=== PATIENT | male | born 1950 | race Caucasian/White ===

== ENCOUNTER 2023-01-06 08:30 | Outpatient (OUT) | payer MEDICARE, SELFPAY ==
[2023-01-06 09:12] LABS: Hematocrit 43.1 % (42.0-54.0); Hemoglobin 14.5 g/dL (14.0-18.0); Mean Corpuscular HGB Conc 33.6 g/dL (29.9-35.2); Mean Corpuscular Hemoglobin 31.3 pg (25.9-34.0); Mean Corpuscular Volume 92.9 fL (80.0-94.0); Mean Platelet Volume 12.6 fL (9.5-13.5); Platelet Count 219 10^3/uL (150-450); Red Blood Count 4.64 10^6/uL (4.70-6.10); Red Cell Distribution Width 12.2 % (11.0-15.0)
[2023-01-06 09:14] LABS: Albumin Level 3.3 g/dL (3.4-5.0); Anion Gap 10.1; BUN Creatinine Ratio 16.9; Calcium 8.4 mg/dL (8.5-10.1); Carbon Dioxide 30.7 mmol/L (21.0-32.0); Chloride 103 mmol/L (98-107); Estimated GFR (African America 52 (>=60); Estimated GFR (Non-African Ame 43 (>=60); Glucose 183 mg/dL (74-106); Magnesium 1.6 mg/dL (1.8-2.4); Potassium 4.8 mmol/L (3.5-5.1); Sodium 139 mmol/L (136-145); Uric Acid 5.9 mg/dL (3.5-7.2)
[2023-01-07 12:09] LABS: PTH, Intact 60 pg/mL (15-65)
== END 2023-01-06 08:31 | disposition home or self-care (01) ==
LOC: LAB 08:36
PROVIDERS: PCP Family Medicine; Visit Provider Internal Medicine
DX: E11.22 Type 2 diabetes mellitus with diabetic chronic kidney disease (principal); N18.30 Chronic kidney disease, stage 3 unspecified; I12.9 Hypertensive chronic kidney disease with stage 1 through stage 4 chronic kidney disease, or unspecified chronic kidney disease; N25.81 Secondary hyperparathyroidism of renal origin; E83.42 Hypomagnesemia
CPT/HCPCS: 36415; 80069; 81001; 82306; 82570; 82728; 83735; 83970; 84156; 84550; 85027

== ENCOUNTER 2023-01-07 | Outpatient (REF) | payer MEDICARE, SELFPAY ==
[2023-01-08 11:37] LABS: Bilirubin Urine NEGATIVE (NEGATIVE); Blood Urine NEGATIVE (NEGATIVE); Clarity Urine CLEAR (CLEAR); Color Urine YELLOW (YELLOW); Glucose Urine UA NEGATIVE (NEGATIVE); Ketones Urine NEGATIVE (NEGATIVE); Leukocyte Esterase Urine NEGATIVE (NEGATIVE); Nitrite Urine NEGATIVE (NEGATIVE); Protein Urine NEGATIVE (NEG/TRACE); Specific Gravity Urine 1.025 (1.005-1.025); Urobilinogen Urine 0.2 EU/dL (0.2-1.0); pH Urine 5.5 (5.0-9.0)
[2023-01-08 11:42] LABS: Total Protein Urine Random 12.7 mg/dL (<=11.9)
[2023-01-08 11:46] LABS: Bacteria Urine NONE SEEN #/HPF (NONE SEEN); Mucus Urine NONE SEEN (NONE SEEN); RBC Urine NONE SEEN #/HPF (0-2); WBC Urine NONE SEEN #/HPF (NONE SEEN)
[2023-01-08 11:48] LABS: Squamous Epithelial Cell Urine NONE SEEN #/LPF (NONE/RARE)
[2023-01-08 11:49] LABS: Calcium Oxalate Crystals Urine FEW; Cast Seen? NONE SEEN #/LPF (NONE SEEN); Crystals Seen? Seen #/HPF (None Seen)
== END 2023-01-07 00:01 | disposition home or self-care (01) ==
LOC: LAB
PROVIDERS: PCP Family Medicine; Visit Provider Internal Medicine
DX: I12.9 Hypertensive chronic kidney disease with stage 1 through stage 4 chronic kidney disease, or unspecified chronic kidney disease (principal); N18.30 Chronic kidney disease, stage 3 unspecified; E11.22 Type 2 diabetes mellitus with diabetic chronic kidney disease; N25.81 Secondary hyperparathyroidism of renal origin; E83.42 Hypomagnesemia
CPT/HCPCS: 81001; 82570; 84156

== ENCOUNTER 2023-04-17 08:46 | Outpatient (OUT) | payer OTHER, SELFPAY ==
--- NOTE | 2023-04-17 08:52 | US_ITS ---
The [address] [address] Patient Name: DON ELKINS MRN: [id number] date: 1950 Sex: M Assigned Patient Location: [place] Current Patient Location: [place] Accession/Order Number: [id number] Exam Date: 04/17/2023 09:00 Report Date: 04/17/2023 09:33 At the request of: CARMELA CAMPBELL Procedure: US right upper quadrant EXAM: US right upper quadrant HISTORY: . Abnormal Results Of Function Studies R94.1 . COMPARISON: None. TECHNIQUE: Grayscale and color imaging was performed FINDINGS: The pancreas was obscured due to overlying bowel gas. Scanning of the liver demonstrates a liver to be normal in size. No masses are noted. Color-flow is noted in the portal and hepatic veins. The gallbladder is absent. Common bile duct measures 3 mm. Right kidney measures 9.3 x 5.1 x 5.2 cm. No solid renal cortical masses or hydronephrosis is noted. No fluid is noted in the right upper quadrant. US/US right upper quadrant IMPRESSION: 1. Absent gallbladder. 2. The pancreas was obscured due to overlying bowel gas. 3. The remainder the right upper quadrant is unremarkable. Electronically authenticated by: WILL REIS Date: 04/17/2023 09:33
== END 2023-04-17 08:47 | disposition home or self-care (01) ==
LOC: US 08:46
PROVIDERS: PCP Family Medicine
DX: R94.8 Abnormal results of function studies of other organs and systems (principal)
CPT/HCPCS: 76705

== ENCOUNTER 2023-07-04 13:25 | Outpatient (OUT) | payer OTHER, SELFPAY ==
--- NOTE | 2023-07-04 13:28 | US_ITS ---
[address] [address] Patient Name: DON ELKINS MRN: [id number] date: 1950 Sex: M Assigned Patient Location: [place] Current Patient Location: [place] Accession/Order Number: [id number] Exam Date: 07/04/2023 13:30 Report Date: 07/04/2023 15:47 At the request of: OSCAR MALCOLM Procedure: US carotid duplex BI EXAMINATION: US carotid duplex BI HISTORY: Carotid Stenosis I65.23 COMPARISON: No relevant comparison available. TECHNIQUE: Duplex Doppler ultrasound analysis of carotid and vertebral arteries. . Bilateral carotid arterial duplex examination was performed using B-mode, color flow and spectral analysis. Carotid stenosis is reported according to validated velocity parameters, similar to NASCET criteria. FINDINGS: RIGHT CAROTID ARTERY: Moderate atherosclerotic narrowing of carotid bulb; 57% area reduction. RIGHT VERTEBRAL: Antegrade flow. Subclavian: PSV: 91.2 cm/s EDV: 6.7 cm/s CCA: Prox: PSV: 80.1 cm/s EDV: 8.7 cm/s Mid: PSV: 72.4 cm/s EDV: 12.0 cm/s Distal: PSV: 59.2 cm/s EDV: 10.9 cm/s BULB: PSV: 69.1 cm/s EDV: 14.2 cm/s ICA: Prox: PSV: 84.5 cm/s EDV: 18.6 cm/s Mid: PSV: 42.7 cm/s EDV: 14.2 cm/s Distal: PSV: 69.1 cm/s EDV: 20.8 cm/s ECA: PSV: 141.7 cm/s EDV: 0.0 cm/s VERTEBRAL: PSV: 43.5 cm/s EDV: 12.1 cm/s ICA/CCA ratio: PSV: 1.4 EDV: 1.7 LEFT CAROTID ARTERY: Mild atherosclerotic disease without significant stenosis. LEFT VERTEBRAL: Antegrade flow. Subclavian: PSV: 137.8 cm/s EDV: 4.1 cm/s CCA: Prox: PSV: 104.8 cm/s EDV: 16.0 cm/s Mid: PSV: 73.5 cm/s EDV: 12.0 cm/s Distal: PSV: 59.2 cm/s EDV: 8.7 cm/s BULB: PSV: 73.5 cm/s EDV: 13.1 cm/s ICA: Prox: PSV: 75.7 cm/s EDV: 24.1 cm/s Mid: PSV: 68.0 cm/s EDV: 20.8 cm/s Distal: PSV: 80.1 cm/s EDV: 29.6 cm/s ECA: PSV: 103.4 cm/s EDV: 6.3 cm/s VERTEBRAL: PSV: 49.0 cm/s EDV: 12.8 cm/s ICA/CCA ratio: PSV: 1.4 EDV: 3.4 US/US carotid duplex BI IMPRESSION: 1. 0-49% flow stenosis within the carotid arteries bilaterally. 2. Moderate atherosclerotic narrowing of right carotid bulb. Minimal atherosclerotic plaque on left. Spectral Doppler US Thresholds Stenosis (%) PSV (cm/sec) VICA/VCCA 0-49 <150 <2.5 50-69 150-225 2.5-4.0 >70 >225 >4.0 Electronically authenticated by: ELIO THOMAS Date: 07/04/2023 15:47
== END 2023-07-04 13:26 | disposition home or self-care (01) ==
LOC: US 13:25
PROVIDERS: PCP Family Medicine; Visit Provider Psychiatry & Neurology Neurology
DX: I65.23 Occlusion and stenosis of bilateral carotid arteries (principal); I63.81 Other cerebral infarction due to occlusion or stenosis of small artery; I63.50 Cerebral infarction due to unspecified occlusion or stenosis of unspecified cerebral artery
CPT/HCPCS: 93880

== ENCOUNTER 2023-08-05 10:39 | Outpatient (OUT) | payer OTHER, SELFPAY ==
[2023-08-05 11:17] LABS: Bilirubin Urine NEGATIVE (NEGATIVE); Blood Urine NEGATIVE (NEGATIVE); Clarity Urine CLEAR (CLEAR); Color Urine YELLOW (YELLOW); Creatinine Urine Random 178.56 mg/dL (20.00-300.00); Glucose Urine UA NEGATIVE (NEGATIVE); Ketones Urine NEGATIVE (NEGATIVE); Leukocyte Esterase Urine NEGATIVE (NEGATIVE); Nitrite Urine NEGATIVE (NEGATIVE); Protein Creatinine Ratio Urine 0.11; Protein Urine NEGATIVE (NEG/TRACE); Specific Gravity Urine 1.025 (1.005-1.025); Urobilinogen Urine 0.2 EU/dL (0.2-1.0); pH Urine 5.5 (5.0-9.0)
[2023-08-05 11:22] LABS: Hematocrit 45.3 % (42.0-54.0); Hemoglobin 15.1 g/dL (14.0-18.0); Mean Corpuscular HGB Conc 33.3 g/dL (29.9-35.2); Mean Corpuscular Hemoglobin 31.7 pg (25.9-34.0); Mean Corpuscular Volume 95.2 fL (80.0-94.0); Mean Platelet Volume 12.7 fL (9.5-13.5); Platelet Count 234 10^3/uL (150-450); Red Blood Count 4.76 10^6/uL (4.70-6.10); Red Cell Distribution Width 12.1 % (11.0-15.0); White Blood Count 11.2 10^3/uL (4.0-11.0)
[2023-08-05 11:24] LABS: Albumin Level 3.3 g/dL (3.4-5.0); Anion Gap 12.4; BUN Creatinine Ratio 14.6; Calcium 8.5 mg/dL (8.5-10.1); Carbon Dioxide 26.4 mmol/L (21.0-32.0); Chloride 98 mmol/L (98-107); Estimated GFR (African America 53 (>=60); Estimated GFR (Non-African Ame 44 (>=60); Glucose 300 mg/dL (74-106); Magnesium 1.9 mg/dL (1.8-2.4); Phosphorus 3.9 mg/dL (2.6-4.7); Potassium 3.8 mmol/L (3.5-5.1); Sodium 133 mmol/L (136-145); Uric Acid 5.4 mg/dL (3.5-7.2)
[2023-08-05 12:04] LABS: Bacteria Urine NONE SEEN #/HPF (NONE SEEN); Mucus Urine TRACE (NONE SEEN); RBC Urine NONE SEEN #/HPF (0-2); Squamous Epithelial Cell Urine FEW #/LPF (NONE/RARE); WBC Urine NONE SEEN #/HPF (NONE SEEN)
[2023-08-06 12:09] LABS: PTH, Intact 34 pg/mL (15-65)
== END 2023-08-05 10:40 | disposition home or self-care (01) ==
LOC: LAB 10:40
PROVIDERS: PCP Family Medicine; Visit Provider Internal Medicine
DX: E11.59 Type 2 diabetes mellitus with other circulatory complications (principal); E03.9 Hypothyroidism, unspecified; E27.1 Primary adrenocortical insufficiency; N18.30 Chronic kidney disease, stage 3 unspecified; E11.22 Type 2 diabetes mellitus with diabetic chronic kidney disease; I12.9 Hypertensive chronic kidney disease with stage 1 through stage 4 chronic kidney disease, or unspecified chronic kidney disease; N25.81 Secondary hyperparathyroidism of renal origin; E83.42 Hypomagnesemia
CPT/HCPCS: 36415; 80061; 80069; 81001; 82043; 82306; 82570; 83735; 83970; 84156; 84439; 84443; 84481; 84550; 84681; 85027

== ENCOUNTER 2023-08-05 10:43 | Outpatient (OUT) | payer OTHER, SELFPAY ==
[2023-08-05 11:20] LABS: Creatinine Urine Random 176.24 mg/dL (20.00-300.00); Microalbum Creatinine Ratio Ur 20.9 mg/g (0.0-29.9); Microalbumin Urine Random 3.7 mg/dL (<=30.0)
[2023-08-05 11:59] LABS: Chol HDL Ratio 2.3; Cholesterol 110 mg/dL (<=200); Free T3 1.71 pg/mL (2.18-3.98); Free T4 0.95 ng/dL (0.76-1.46); HDL Cholesterol 47 mg/dL (40-60); Thyroid Stimulating Hormone 1.788 uIU/mL (0.358-3.740); Triglycerides 154 mg/dL (<=150); VLDL CHOLESTEROL 30.8 mg/dL
[2023-08-06 12:09] LABS: C-Peptide, Serum 19.7 ng/mL (1.1-4.4)
== END 2023-08-05 10:44 | disposition home or self-care (01) ==
LOC: LAB 10:43
PROVIDERS: PCP Family Medicine; Visit Provider Internal Medicine
DX: E11.59 Type 2 diabetes mellitus with other circulatory complications (principal); E03.9 Hypothyroidism, unspecified; E27.1 Primary adrenocortical insufficiency
CPT/HCPCS: 36415; 80061; 82043; 82570; 84439; 84443; 84481; 84681

== ENCOUNTER 2024-01-22 10:43 | Outpatient (OUT) | payer OTHER, SELFPAY ==
[2024-01-22 11:04] LABS: Mean Corpuscular HGB Conc 34.1 g/dL (29.9-35.2); Mean Corpuscular Hemoglobin 31.5 pg (25.9-34.0); Mean Corpuscular Volume 92.4 fL (80.0-94.0); Mean Platelet Volume 12.7 fL (9.5-13.5); Platelet Count 230 10^3/uL (150-450); Red Blood Count 4.76 10^6/uL (4.70-6.10); White Blood Count 9.7 10^3/uL (4.0-11.0)
[2024-01-22 11:05] LABS: Bilirubin Urine NEGATIVE (NEGATIVE); Blood Urine NEGATIVE (NEGATIVE); Clarity Urine CLEAR (CLEAR); Color Urine LT. YELLOW (YELLOW); Glucose Urine UA >=1000 mg/dL (NEGATIVE); Ketones Urine NEGATIVE (NEGATIVE); Leukocyte Esterase Urine NEGATIVE (NEGATIVE); Nitrite Urine NEGATIVE (NEGATIVE); Protein Urine NEGATIVE (NEG/TRACE); Specific Gravity Urine 1.015 (1.005-1.025); Urobilinogen Urine 0.2 EU/dL (0.2-1.0); pH Urine 5.5 (5.0-9.0)
[2024-01-22 11:15] LABS: Bacteria Urine NONE SEEN #/HPF (NONE SEEN); Mucus Urine TRACE (NONE SEEN); RBC Urine NONE SEEN #/HPF (0-2); Squamous Epithelial Cell Urine FEW #/LPF (NONE/RARE); WBC Urine NONE SEEN #/HPF (NONE SEEN)
[2024-01-22 11:18] LABS: Creatinine Urine Random 81.08 mg/dL (20.00-300.00); Protein Creatinine Ratio Urine 0.14; Total Protein Urine Random 11.7 mg/dL (<=11.9)
[2024-01-22 12:20] LABS: Albumin Level 3.6 g/dL (3.4-5.0); Anion Gap 14.2; BUN Creatinine Ratio 14.7; Calcium 8.9 mg/dL (8.5-10.1); Carbon Dioxide 28.7 mmol/L (21.0-32.0); Chloride 99 mmol/L (98-107); Estimated GFR (African America 35 (>=60); Estimated GFR (Non-African Ame 29 (>=60); Glucose 303 mg/dL (74-106); Magnesium 1.9 mg/dL (1.8-2.4); Phosphorus 3.8 mg/dL (2.6-4.7); Potassium 4.9 mmol/L (3.5-5.1); Sodium 137 mmol/L (136-145); Uric Acid 7.7 mg/dL (3.5-7.2)
[2024-01-23 12:09] LABS: PTH, Intact 61 pg/mL (15-65)
== END 2024-01-22 10:44 | disposition home or self-care (01) ==
LOC: LAB 10:45
PROVIDERS: PCP Family Medicine; Visit Provider Internal Medicine
DX: E83.42 Hypomagnesemia (principal); N25.81 Secondary hyperparathyroidism of renal origin; I12.9 Hypertensive chronic kidney disease with stage 1 through stage 4 chronic kidney disease, or unspecified chronic kidney disease; E11.22 Type 2 diabetes mellitus with diabetic chronic kidney disease; N18.30 Chronic kidney disease, stage 3 unspecified; I26.99 Other pulmonary embolism without acute cor pulmonale
CPT/HCPCS: 36415; 80069; 81001; 82306; 82570; 83735; 83970; 84156; 84550; 85027

== ENCOUNTER 2024-03-17 09:34 | Outpatient (OUT) | payer OTHER, SELFPAY ==
--- OUTSIDE RECORDS SUMMARY | 2024-03-17 09:58 | XMS_ITS | CCD ---
Author Organization [facility] Care Team Providers Care Grocery Worker Name Role Phone Kenneth Cheng Unavailable Unavailable Kirnus, Levi Unavailable Unavailable UNKNOWN, PCP Unavailable Unavailable SY, JC VASUDEO Unavailable Unavailable Sy, Jc Vasudeo Attending Unavailable Sal Sabillon Primary Care Provider [phone] SALLIE, REID H. Referring Unavailable SAL SABILLON Primary Care Unavailable SALLIE, REID H. Admitting Unavailable SALLIE, REID H. Attending Unavailable SAL SABILLON Primary Care Unavailable SALLIE, REID H. Attending Unavailable SALLIE, REID H. Referring Unavailable SAL SABILLON Primary Care Unavailable SAL SABILLON Primary Care Unavailable CHATHA, GERARDO Admitting Unavailable CHATHA, GERARDO Attending Unavailable SALLIE, REID H. Consulting Unavailable ANDREW WRIGHT Consulting Unavailable SCAARONIN ELLIE Admitting Unavailable SCAARONIN ELLIE Attending Unavailable SAL SABILLON Primary Care Unavailable CHATHA, GERARDO Consulting Unavailable MARJ DEMARCO Admitting Unavailable MARJ DEMARCO Attending Unavailable SAL SABILLON Primary Care Unavailable SAL SABILLON Referring Unavailable Geovanni, Frederick Unavailable GEOVANNI, FREDERICK Admitting Unavailable GEOVANNI, FREDERICK Attending Unavailable GEOVANNI, FREDERICK Consulting Unavailable DR SAL SABILLON Primary Care Unavailable DR SAL SABILLON Primary Care Unavailable BECCA JUNE Attending Unavailable BECCA JUNE Admitting Unavailable DR SAL SABILLON Primary Care Unavailable BECCA JUNE Admitting Unavailable BECCA JUNE Attending Unavailable BECCA JUNE Consulting Unavailable DR SAL SABILLON Primary Care Unavailable JENNIFER, DR CHANG Attending Unavailable JENNIFER, DR CHANG Consulting Unavailable JENNIFER, DR CHANG Admitting Unavailable DR SAL SABILLON Primary Care Unavailable GEOVANNI, FREDERICK Admitting Unavailable GEOVANNI, FREDERICK Attending Unavailable FREDERICK DALTON Consulting Unavailable Sal Sabillon Unavailable Sal Sabillon MD Primary Care Provider [phone] OSCAR ARVIZU Attending Unavailable OLGA VOGEL Attending Unavailable OSCAR ARVIZU Attending Unavailable BECCA JUNE Attending Unavailable MARJ DEMARCO Attending Unavailable Medications Current Medications Medication Drug Class(es) Dates Sig (Normalized) Sig (Original) 0.25 MG, 0.5 MG Dose 3 ML semaglutide 0.68 MG/ML Pen Injector [Ozempic] (2 sources) Ozempic (0.25 or 0.5 MG/DOSE) 2 MG/3ML as directed Subcutaneous Active acetaminophen 325 mg oral tablet (2 sources) Start: 04-08-2019 650 mg, Oral, EVERY 4 HOURS PRN, Pain Mild (1-3), Fever, For temp greater than 100.5 F (38 C), Starting 04/09/19 at 1749 Maximum dose of acetaminophen is 4000 mg from all sources in 24 hours. Acetaminophen / oxyCODONE (5 sources) Opioid Agonist Start: 04-09-2019 oxyCODONE-acetaminop hen (PERCOCET) 5-325 MG per tablet 1 tablet Start: 04-08-2019 oxyCODONE-acet aminophen (PERCOCET) 5-325 MG per tablet 1 tablet Start: 04-05-2019 End: 04-19-2019 take 1 tablet by mouth every six hours as needed for pain, then take 1 tablet by mouth as needed for pain oxyCODONE-acetaminophen (PERCOCET) 5-325 MG per tablet Indications: Post-op pain Take 1 tablet by mouth every 6 hours as needed for Pain for up to 14 days. Intended supply: 7 days. Take lowest dose possible to manage pain 40 tablet 0 04/05/2019 04/19/2019 Active amantadine hydrochloride 100 mg oral tablet (2 sources) Influenza A M2 Protein Inhibitor take 1 tablet by mouth every twenty-four hours Amantadine HCl 100 MG 1 tablet Orally Once a day Active aspirin 81 mg chewable tablet (15 sources) Platelet Aggregation Inhibitor, Nonsteroidal Anti-inflammatory Drug Start: 08-14-19 take 81 mg by mouth once daily Aspirin Active 81 MG PO Daily August 14, 2023 12:00am Start: 03-15-2018 End: 09-11-2020 take 81 mg by mouth once daily Aspirin Discontinued 81 MG PO Daily 0 March 16, 2018 12:00am September 11, 2020 6:25pm take 1 tablet by jules th once daily Aspirin 81 81 MG 1 tablet Orally Once a day Active atorvastatin 40 mg oral tablet (11 sources) HMG-CoA Reductase Inhibitor Start: 08-14-2023 take 40 mg by mouth once daily Atorvastatin Active 40 MG PO Daily August 14, 2023 12:00am Start: 03-16-2018 End: 08-14-2023 take 80 mg by mouth once daily at bedtime Atorvastatin Discontinued 80 MG PO Daily at bedtime 0 March 16, 2018 12:00am August 14, 2023 1:36pm take 1 tablet by jules th in the morning atorvastatin (Lipitor) 20 MG tablet Take 1 tablet by mouth in the morning. 0 Active take 1 tablet by jules th every twenty-four hours Atorvastatin Calcium 40 MG 1 tablet Orally Once a day Active calcium chloride 0.0014 meq/ml / potassium chloride 0.004 meq/ml / sodium chloride 0.103 meq/ml / sodium lactate 0.028 meq/ml injectable solution (2 sources) Start: 04-05-2019 lactated ringers infusion cholestyramine resin 4000 mg powder for oral suspension (3 sources) Bile Acid Sequestrant take 1 dose by mouth once daily cholestyramine (Questran) 4 g packet use 1 (ONE) PACKET BY MOUTH DAILY 0 Active citalopram 20 mg oral tablet (20 sources) Serotonin Reuptake Inhibitor Start: 03-15-2018 End: 08-14-2023 take 20 mg by mouth once daily Citalopram Active 20 MG PO Daily August 14, 2023 12:00am Coenzyme Q-10 100 MG (1 source) take 1 capsule by mouth once daily Coenzyme Q-10 100 MG 1 capsule with a meal Orally Once a day Active ubidecarenone 100 mg oral capsule (14 sources) Start: 08-14-2023 Coenzyme Q10 Active 100 MG PO Daily August 14, 2023 12:00am Start: 03-15-2018 End: 03-16-2018 Coenzyme Q10 (Co Q-10) 100 m g Capsule Discontinued 100 MG PO Daily March 15, 2018 12:00am March 16, 2018 1:09pm take 1 capsule by mo [facility] every twenty-four hours Coenzyme Q-10 100 MG 1 capsule with a meal Orally Once a day Active CPAP Machine MISC (4 sources) CPAP Machine MIS C by Does not apply route 0 Active 72 hr fentaNYL 0.025 mg/hr transdermal system (4 sources) Opioid Agonist Start: 04-11-2019 1 patch, Transdermal, Administer over 72 Hours, EVERY 72 HOURS, First dose (after last modification) on 04/11/19 at 1600 Start: 04-08-2019 apply 1 dose transde rmal route every hour fentaNYL (DURAGESIC) 25 MCG/HR 1 patch Start: 04-07-2019 End: 04-07-2019 fentaNYL (SUBLIMAZE) injecti on 50 mcg Start: 04-05-2019 fentaNYL (SUBL IMAZE) injection 50 mcg fludrocortisone acetate 0.1 mg oral tablet (18 sources) Start: 08-14-2023 take 0.1 mg by mouth four times weekly Fludrocortisone Active 0.1 MG PO 4 times per week August 14, 2023 12:00am Start: 04-08-2019 End: 04-13-2019 take 0.1 mg by mouth once daily 0.1 mg, Oral, DAILY, First dose (after last modification) on 04/10/19 at 0900 Start: 03-15-2018 End: 08-14-2023 take 0.1 mg by mouth every other day Fludrocortisone Discontinued 0.1 MG PO every other day March 15, 2018 12:00am August 14, 2023 1:37pm take 1 tablet by [facility] four times weekly Fludrocortisone Acetate 0.1 MG 1 tablet Orally four times a Week Active take 1 tablet by [facility] once daily fludrocortisone (FLORINEF) 0.1 MG tablet Take 0.1 mg by mouth daily 0 Active gabapentin 800 mg oral tablet (20 sources) Anti-epileptic Agent Start: 01-29-2024 take 800 mg by mouth three times daily Gabapentin Active 800 MG PO Three times daily January 29, 2024 12:00am Start: 08-14-2023 End: 01-29-2024 take 600 mg by mouth twice daily Gabapentin Discontinu ed 600 MG PO Twice daily August 14, 2023 12:00am January 29, 2024 3:08pm Start: 09-11-2020 End: 08-14-2023 take 800 mg by mouth at bedtime Gabapentin Discontinue d 800 MG PO Bedtime September 11, 2020 12:00am August 14, 2023 1:36pm Start: 09-11-2020 End: 08-14-2023 gabapentin (Neurontin) 800 M G tablet Indications: Neurogenic pain 1 tab BID, may incr to TID 90 tablet 5 06/24/2023 Active take 3 capsules by m outh every twelve hours Gabapentin 100 MG 3 capsule Orally twice a day for 30 days Active End: 03-30-2019 take 1 capsule by mouth three times daily gabapentin (NEURONTIN) 300 MG capsule Take 300 mg by mouth 3 times daily. 0 03/30/2019 Discontinued glucagon (rdna) 1 mg injection (2 sources) Antihypoglycemic Agent Start: 04-08-2019 take 1 mL intravenous route every hour 1 mg, Intramuscular, PRN, Low blood sugar, Blood glucose less than 70 mg/dL and patient NOT ALERT or NPO and does not have IV access., Starting Fri04/09/19 at 1749 After administration, attempt intravenous access and start D5W at 100 mL/hr. Repeat blood glucose in 15 minutes x2 and notify provider. glucose 0.4 mg/mg oral gel (6 sources) Start: 04-09-2019 15 g, Oral, PRN, Low blood sugar, Starting Fri04/09/19 at 1749 If blood glucose less than 50 mg/dL and patient ALERT and TOLERATING PO, give 2 tubes glucose gel. If blood glucose less than 70 mg/dL and patient ALERT and TOLERATING PO, give 1 tube glucose gel. Repeat blood glucose in 15 minutes. If blood glucose is less than 70 mg/dL, repeat treatment and recheck blood glucose in 15 minutes x2 and notify provider. Start: 04-09-2019 100 mL/hr, Int ravenous, at 100 mL/hr, PRN, Low blood sugar, Starting Fri04/09/19 at 1749 Start infusion following administration of dextrose 50% or glucagon. Start: 04-08-2019 12.5 g, Intrav enous, PRN, Low blood sugar, Blood glucose less than 70 mg/dL and patient NOT ALERT or NPO., Starting Fri04/09/19 at 1749 If patient does not respond within 5 minutes, repeat dose x1. Start D5W at 100 mL/hour until ordering provider can be reached. Repeat blood glucose in 15 minutes. If blood glucose is less than 70 mg/dL, repeat treatment and recheck blood glucose in 15 minutes x2. If using Glucostabilizer, dose as instructed per system. Start: 04-08-2019 glucose (GLUTO SE) 40 % oral gel 15 g Start: 04-08-2019 dextrose 5 % s olution 12 hr guaiFENesin 600 mg extended release oral tablet (2 sources) Start: 04-08-2019 take 600 mg by mouth twice daily 600 mg, Oral, 2 TIMES DAILY, First dose (after last modification) on Fri04/09/19 at 2100 Do not crush or break. hydrocortisone 20 mg oral tablet (20 sources) Corticosteroid Start: 08-14-2023 take 10 mg by mouth once daily at bedtime Hydrocortisone Active 10 MG PO Daily at bedtime August 14, 2023 12:00am Start: 08-14-2023 take 20 mg by mouth once daily in the morning Hydrocortisone Active 20 MG PO Every morning August 14, 2023 12:00am Start: 04-08-2019 take 20 mg by mouth twice daily 20 mg, Oral, 2 TIMES DAILY, First dose (after last modification) on Fri04/09/19 at 2100 Start: 03-15-2018 End: 08-14-2023 take 20 mg by mouth twice daily Hydrocortisone Discontinued 20 MG PO Twice daily March 15, 2018 12:00am August 14, 2023 1:36pm insulin glargine 100 unt/ml injectable solution (8 sources) Insulin Analog Start: 04-08-2019 inject 20 [IU] by subcutaneous injection once daily 20 Units, Subcutaneous, NIGHTLY, First dose (after last modification) on Fri04/09/19 at 2100 Lantus 100 UNIT/ ML as directed Subcutaneous 20 units Active insulin glargine (BASAGLAR KWIKPEN) 100 UNIT/ML injection pen 20 Units nightly 0 Active insulin lispro 100 unt/ml injectable solution (5 sources) Insulin Analog Start: 04-10-2019 insulin lispro (HUMALOG) injection vial 6 Units Start: 04-08-2019 0-6 Units, Subcutaneous, NIG HTLY, First dose (after last modification) on Fri04/09/19 at 2100 If continuous tube feedings/TPN/NPO, give correction dose based on result, no reduction in dose. If eating or bolus tube feeding: Medium Dose Corrective Algorithm Glucose: Dose: If <139 No Insulin 140-199 &nbsp ; 1 Unit 200-249 2 Units 250-299 3 Units 300-349 4 Units 350-400 5 Units Above 400 6 Units Start: 04-08-2019 0-12 Units, Subcutaneous, 3 TIMES DAILY WITH MEALS, First dose (after last modification) on Fri04/09/19 at 1815 Medium Dose Corrective Algorithm Glucose: Dose: If <139 No Insulin 140-199 2 Units 200-249 4 Units 250-299 6 Units 300-349 8 Units 350-400 10 Units Above 400 12 Units insulin, aspart, human 100 unt/ml injectable solution (4 sources) Insulin Analog insulin aspart (NOVOLOG) 100 UNIT/ML injection vial Indications: sliding scale Inject into the skin Indications: sliding scale 0 Active levothyroxine sodium 0.1 mg oral tablet (20 sources) l-Thyroxine Start: 01-29-2024 take 100 ug by mouth once daily Levothyroxine Active 100 MCG PO Daily January 29, 2024 12:00am Start: 04-10-2019 take 150 ug by mouth once kimo y 150 mcg, Oral, DAILY, First dose (after last modification) on 04/10/19 at 0700 Tube feeding (TF) interaction, obtain physician order to manage, recommend holding TF for 30 minutes before and after dose. Start: 03-15-2018 End: 01-29-2024 take 150 ug by mouth once daily Levothyroxine Disconti nued 150 MCG PO Daily August 14, 2023 12:00am January 29, 2024 3:07pm take 1 tablet by jules once daily in the morning Levothyroxine Sodium 150 MCG 1 tablet on an empty stomach in the morning Orally Once a day Active 3 ml liraglutide 6 mg/ml pen injector (6 sources) GLP-1 Receptor Agonist Start: 04-11-2019 Liraglutide (VICTOZA ) SC injection 1.2 mg Victoza 18 MG/3M L as directed Subcutaneous Active Liraglutide (ALBERTINA TOZA SC) Inject 1.2 mg into the skin daily 0 Active lisinopril 5 mg oral tablet (20 sources) Angiotensin Converting Enzyme Inhibitor Start: 08-14-2023 take 5 mg by mouth once daily Lisinopril Active 5 MG PO Daily August 14, 2023 12:00am Start: 04-08-2019 take 10 mg by mouth once daily 10 mg, Oral, DAILY, First dose (after last modification) on 04/10/19 at 0900 Start: 03-15-2018 End: 08-14-2023 take 20 mg by mouth once daily Lisinopril Discontinued 20 MG PO Daily March 15, 2018 12:00am August 14, 2023 1:36pm take 1 tablet by jules th once daily lisinopril 5 MG tablet Take 1 tablet every day by oral route for 90 days. 0 Active take 1 tablet by jules th once daily lisinopril (PRINIVIL;ZESTRIL) 10 MG tablet Take 10 mg by mouth daily 0 Active magnesium oxide 400 mg oral tablet (8 sources) Start: 08-14-2023 Magnesium Oxid e Active 400 MG PO Every 48 hours August 14, 2023 12:00am Start: 01-16-2023 take 1 tablet by jules th every other day Magnesium Oxide 400 MG 1 Tablet Orally every other day for 90 days Dec, Active Start: 02-08-2019 End: 04-08-2019 take 1 tablet by mouth once daily magnesium oxide (MAG-OX) 400 (241.3 Mg) MG TABS tablet Take 400 mg by mouth daily 6 02/08/2019 04/08/2019 Discontinued memantine hydrochloride 10 mg oral tablet (12 sources) T-nyhkwx-L-aspartate Receptor Antagonist Start: 08-14-2023 take 10 mg by mouth once daily Memantine Active 10 MG PO Daily August 14, 2023 12:00am take 1 tablet by mouth in the mo rning memantine (Namenda) 10 MG tablet Take 1 tablet by mouth in the morning and 1 tablet before bedtime. 0 Active metoprolol tartrate 100 mg oral tablet (20 sources) beta-Adrenergic Danica Start: 01-29-2024 take 100 mg by mouth twice daily Metoprolol Tartrate Active 100 MG PO Twice daily January 29, 2024 12:00am Start: 08-14-2023 End: 01-29-2024 take 75 mg by mouth twice daily Metoprolol Tartrate Di scontinued 75 MG PO Twice daily August 14, 2023 12:00am January 29, 2024 3:09pm Start: 09-11-2020 End: 08-14-2023 take 25 mg by mouth twice daily Metoprolol Tartrate Di scontinued 25 MG PO Twice daily September 11, 2020 12:00am August 14, 2023 1:36pm Start: 04-08-2019 take 75 mg by mouth twice kimo y 75 mg, Oral, 2 TIMES DAILY, First dose (after last modification) on Fri04/09/19 at 2100 take 3 tablets by mo uth in the morning metoprolol tartrate (Lopressor) 25 MG tablet Take 3 tablets by mouth in the morning and 3 tablets before bedtime. 0 Active Multiple Vitamins-Minerals (THERAPEUTIC MULTIVITAMIN-MINERALS) tablet (3 sources) take 1 tablet by mouth once daily Multiple Vitamins-Minerals (THERAPEUTIC MULTIVITAMIN-MINERALS) tablet Take 1 tablet by mouth daily 0 Active Multivitamin Adults - (6 sources) Multivitamin Logan lts - as directed Orally Active Multivitamin preparation (3 sources) Star t: 0301-05 take 1 tablet by mouth once daily Multivitamin Active 1 TAB PO Daily August 14, 2023 12:00am Bluebell 3 Fish Oil (4 sources) Bluebell 3 Fish Oil one tablet daily Active Bluebell-3 Fatty Acids (FISH OIL) 600 MG CAPS (3 sources) Bluebell-3 Fatty Ac ids (FISH OIL) 600 MG CAPS Take by mouth daily 0 Active pantoprazole 40 mg delayed release oral tablet (2 sources) Proton Pump Inhibitor Star t: 03-20 take 40 mg by mouth once daily before breakfast 40 mg, Oral, DAILY BEFORE BREAKFAST, First dose (after last modification) on Fri04/10/19 at 0700 Do not crush or break. polyethylene glycol [id number] mg powder for oral solution (1 source) Osmotic Laxative Star t: 03-20 polyethylene glycol (GLYCOLAX) packet 17 g 100 ml potassium chloride 0.1 meq/ml injection (4 sources) Star t: 03-20 take 10 mL intravenous route every hour as needed 10 mEq, Intravenous, at 100 mL/hr, PRN, Potassium Replacement, Starting Fri04/09/19 at 1749 K Lab Replacement Action 3.1-3.5 & nbsp; &nb sp; 10 mEq IVPB x 4 doses (40 mEq Total) 2.7-3.0 & nbsp; &am p;nbsp; 10 mEq IVPB x 6 doses (60 mEq Total) < 2.7 &nbsp ; & nbsp; CALL PHYSICIAN and 10 mEq IVPB x 6 doses (60 mEq Total) Infuse at 10 mEq/hr. Repeat Potassium lab 1 hour after final administration. Not for use in patients with CrCl less than 30 mL/min. Start: 04-09-2019 potassium chlo ride (KLOR-CON M) extended release tablet 40 mEq Start: 04-08-2019 potassium chlo ride 10 mEq/100 mL IVPB (Peripheral Line) Start: 04-08-2019 potassium chlo ride (KLOR-CON M) extended release tablet 40 mEq 1 ml promethazine hydrochloride 25 mg/ml injection (1 source) Phenothiazine Start: 04-08-2019 promethazine (PHENERGAN) injection 6.25 mg rOPINIRole 2 mg oral tablet (12 sources) Nonergot Dopamine Agonist Start: 04-08-2019 take 8 mg by mouth once daily in the evening 8 mg, Oral, EVERY EVENING, First dose (after last modification) on Fri04/09/19 at 1815 Start: 03-15-2018 End: 09-11-2020 take 8 mg by mouth once daily Ropinirole Discontinued 8 MG PO Daily March 15, 2018 12:00am September 11, 2020 6:29pm take 1 tablet by jules th every twenty-four hours in the morning rOPINIRole XL (Requip XL) 8 MG 24 hr tablet Take 1 tablet by mouth in the morning. 0 Active take 8 mg by mouth o nce daily in the evening rOPINIRole (REQUIP) 0.5 MG tablet Take 8 mg by mouth every evening 0 Active Semaglutide (3 sources) Start: 08-14-2023 Semaglutide (Ozempic) 0.25 mg or 0.5 mg (2 mg/3 mL) pen injector Active MG SUBCUT As Directed August 14, 2023 12:00am FreeTextSig: as directed Subcutaneous; Note: Source Status: Taking; Provider: Jesse Savage ( ) simvastatin 20 mg oral tablet (9 sources) HMG-CoA Reductase Inhibitor Start: 04-08-2019 take 20 mg by mouth once daily 20 mg, Oral, NIGHTLY, First dose (after last modification) on Fri04/09/19 at 2100 Start: 09-20-2018 take 1 tablet by jules th once daily simvastatin (ZOCOR) 20 MG tablet Take 20 mg by mouth nightly 0 09/20/2018 Active Start: 03-15-2018 End: 03-16-2018 take 20 mg by mouth once daily Simvastatin Discontinue d 20 MG PO Daily March 15, 2018 12:00am March 16, 2018 1:09pm 3 ml sodium chloride 9 mg/ml injection (11 sources) Start: 04-09-2019 take 10 mL intraveno us route once as needed 10 mL, Intravenous, PRN, Line Care, After every IV line use, Starting Fri04/09/19 at 1749 Start: 04-08-2019 End: 04-08-2019 0.9 % sodium chloride infusi on Start: 04-07-2019 End: 04-08-2019 sodium chloride flush 0.9 % injection 10 mL Start: 04-07-2019 End: 04-08-2019 0.9 % sodium chloride bolus Start: 04-05-2019 sodium chlorid e flush 0.9 % injection 10 mL warfarin (COUMADIN) daily do sing (placeholder) (2 sources) Start: 04-09-2019 warfarin (COUM [place]) daily dosing (placeholder) Start: 04-08-2019 warfarin (COUM [place]) daily dosing (placeholder) Completed/Discontinued Medications Medication Drug Class(es) Dates Sig (Normalized) Sig (Original) albuterol 0.833 mg/ml / ipratropium bromide 0.167 mg/ml inhalant solution (1 source) Anticholinergic, beta2-Adrenergic Agonist Start: 04-07-2019 End: 04-08-2019 ipratropium-albute rol (DUONEB) nebulizer solution 1 ampule calcium carbonate 1250 mg / cholecalciferol 125 unt oral tablet (6 sources) Vitamin D Start: 03-15-2018 End: 03-15-2018 take 1 tablet by mouth twice daily Calcium Carbonate-Vitamin D3 (Calcium 500 + D (D3)) 500 mg(1,250mg) -125 unit Tablet Discontinued 1 TAB PO Twice daily March 15, 2018 12:00am March 15, 2018 11:48am Start: 03-15-2018 End: 09-11-2020 take 1 tablet by mouth once daily Calcium Carbonate-Vitamin D3 (Calcium 600 + D(3)) 600 mg calcium- 200 unit Capsule Discontinued 1 TAB PO Daily March 15, 2018 12:00am September 11, 2020 6:33pm carbidopa 25 mg / levodopa 100 mg oral tablet (12 sources) Aromatic Amino Acid Decarboxylation Inhibitor, Aromatic Amino Acid Start: 09-11-2020 End: 09-14-2020 take 1 tablet by mouth twice daily Carbidopa-Levodopa Discontinued 25 - 100 TAB PO Twice daily September 11, 2020 12:00am September 14, 2020 9:22pm take 1 tablet by jules th in the morning carbidopa-levodopa (Sinemet) 25-100 MG t ablet Take 1 tablet by mouth in the morning and 1 tablet before bedtime. 0 Active take 1 tablet by jules th every twenty-four hours Carbidopa-Levodopa 25-100 MG 1 tablet Or ally ONCE A DAY for 30 days Active take 1 tablet by mouth twice nancy ly Carbidopa-Levodopa 25-100 MG 1 tablet Orally Two times a DAY for 30 Active cefepime (MAXIPIME) 2 g IVPB minibag (1 source) Start: 04-08-2019 End: 04-08-2019 cefepime (MAXIPIME) 2 g IVPB minibag cephalexin 500 mg oral capsule (3 sources) Cephalosporin Antibacterial Start: 04-05-2019 End: 04-13-2019 take 1 capsule by mouth three times daily cephALEXin (KEFLEX) 500 MG capsule Take 1 capsule by mouth 3 times daily for 7 days 21 capsule 0 04/05/2019 04/13/2019 Discontinued (Stop Taking at Discharge) Bluebell-3 Fatty Acids-Fish Oil (3 sources) Start: 03-15-2018 End: 03-16-2018 take 1 capsule by mouth once daily Bluebell-3 Fatty Acids-Fish Oil (Fish Oil) 300-1,000 mg Capsule Discontinued 1 CAP PO Daily March 15, 2018 12:00am March 16, 2018 1:09pm donepezil hydrochloride 10 mg oral tablet (10 sources) Start: 09-11-2020 End: 09-14-2020 take 10 mg by mouth once daily Donepezil Discontinued 10 MG PO Daily September 11, 2020 12:00am September 14, 2020 9:22pm 0.4 ml enoxaparin sodium 100 mg/ml prefilled syringe (2 sources) Low Molecular Weight Heparin Start: 04-08-2019 End: 04-13-2019 inject 40 mg by subcutaneous injection once daily 40 mg, Subcutaneous, DAILY, First dose (after last modification) on Fri04/09/19 at 2100 gadoteridol (PROHANCE) injection 15 mL (1 source) Start: 04-07-2019 End: 04-07-2019 gadoteridol (PROHANCE) injection 15 mL 1 ml HYDROmorphone hydrochloride 1 mg/ml cartridge (1 source) Opioid Agonist Start: 04-07-2019 End: 04-07-2019 HYDROmorphone (DILAUDID) injection 1 mg ibuprofen 600 mg oral tablet (3 sources) Nonsteroidal Anti-inflammatory Drug Start: 03-15-2018 End: 03-16-2018 take 600 mg by mouth twice daily Ibuprofen Discontinued 600 MG PO Twice daily March 15, 2018 12:00am March 16, 2018 1:09pm 10 ml lidocaine hydrochloride 10 mg/ml injection (1 source) Antiarrhythmic, Amide Local Anesthetic Start: 04-05-2019 End: 04-05-2019 lidocaine PF 1 % injection 1 mL metFORMIN hydrochloride 500 mg oral tablet (10 sources) Biguanide Start: 03-15-2018 End: 08-14-2023 take 500 mg by mouth once daily Metformin Discontinued 500 MG PO Daily March 15, 2018 12:00am August 14, 2023 1:36pm take 1 tablet by mouth in the mo rning metFORMIN (Glucophage) 500 MG tablet Take 1 tablet by mouth in the morning and 1 tablet before bedtime. 0 Active take 1 tablet by jules th every twelve hours metFORMIN HCl 1000 MG 1 tablet with a me al Orally twice a day Active Multivitamin (Multiple Vitamins) Tablet (3 sources) Start: 03-15-2018 End: 08-14-2023 take 1 tablet by mouth once daily Multivitamin (Multiple Vitamins) Tablet Discontinued 1 TAB PO Daily March 15, 2018 12:00am August 14, 2023 1:35pm omeprazole 40 mg delayed release oral capsule (10 sources) Proton Pump Inhibitor Start: 03-15-2018 End: 09-11-2020 take 40 mg by mouth once daily Omeprazole Discontinued 40 MG PO Daily March 15, 2018 12:00am September 11, 2020 6:29pm ondansetron 4 mg disintegrating oral tablet (7 sources) Serotonin-3 Receptor Antagonist Start: 09-11-2020 End: 09-14-2020 take 4 mg by mouth every six hours Ondansetron Discontinued 4 MG PO Q6H 14 September 11, 2020 12:00am September 14, 2020 9:22pm Start: 04-07-2019 End: 04-07-2019 4 mg, Intravenous, EVERY 6 H OURS PRN, Nausea, Vomiting, Starting 04/09/19 at 1749 Start: 04-05-2019 End: 04-05-2019 ondansetron (ZOFRAN) injecti on 4 mg piperacillin-tazobactam (ZOSYN) 3.375 g in dextrose 5 % 50 mL IVPB (mini-bag) (1 source) Start: 04-07-2019 End: 04-08-2019 piperacillin-tazobactam (ZOSYN) 3.375 g in dextrose 5 % 50 mL IVPB (mini-bag) sennosides, chcf 8.6 mg oral tablet (2 sources) Start: 04-05-2019 End: 04-19-2019 take 1 tablet by mouth twice daily senna (SENOKOT) 8.6 MG tablet Take 1 tablet by mouth 2 times daily for 14 days 28 tablet 0 04/05/2019 04/08/2019 Discontinued tiZANidine 4 mg oral tablet (10 sources) Central alpha-2 Adrenergic Agonist Start: 09-11-2020 End: 08-14-2023 take 4 mg by mouth twice daily Tizanidine Discontinued 4 MG PO Twice daily September 11, 2020 12:00am August 14, 2023 1:35pm tiZANidine HCl 4 MG as directed Oral once a day for 30 Active Triamcinolone (12 sources) Corticosteroid Start: 07-26-2020 Kenalog -40 mg Jul, 40 mg Start: 07-05-2020 Kenalog -40 mg Jun, 40 mg vancomycin (VANCOCIN) 1,250 mg in dextrose 5 % 250 mL IVPB (1 source) Start: 04-08-2019 End: 04-08-2019 vancomycin (VANCOCIN) 1,250 mg in dextrose 5 % 250 mL IVPB warfarin sodium 3 mg oral tablet (19 sources) Vitamin K Antagonist Start: 09-11-2020 End: 08-14-2023 take 9 mg by mouth once daily Warfarin Discontinued 9 MG PO Daily September 11, 2020 12:00am August 14, 2023 1:35pm SUNDAYS ONLY Start: 09-11-2020 End: 08-14-2023 take 6 mg by mouth five times weekly Warfarin Discontinued 6 MG PO 5 TIMES PER WEEK September 11, 2020 12:00am August 14, 2023 1:35pm Start: 04-13-2019 End: 04-14-2019 warfarin (COUMADIN) tablet 5 mg Start: 04-12-2019 warfarin (COUM [place]) tablet 7.5 mg Start: 04-10-2019 warfarin (COUM [place]) tablet 15 mg Start: 04-08-2019 End: 04-10-2019 warfarin (COUMADIN) tablet 1 0 mg take 5 mg by mouth once daily wa rfarin (COUMADIN) 4 MG tablet Indications: V-ND-Bgv-Sun Take 5 mg by mouth daily Indications: L-JR-Kpr-Sun 0 Active take 1 tablet by jules th once daily warfarin (COUMADIN) 7.5 MG tablet Indications: M-W-F Take 7.5 mg by mouth daily Indications: M-W-F 0 Active Problems Active Problems Problem Classification Problem Date Documented Date Episodic/Chronic Abdominal pain (3 sources) Abdominal pain; Translations: [Unspecified abdominal pain] 09-14-2020 Episodic Acute and unspecified renal failure (8 sources) Acute kidney failure, unspecified; Translations: [Acute renal failure syndrome] Onset: 8 04-09-2019 Episodic Acute and unspecified renal failure (1 source) Acute injury of kidney; Translations: [TIFFANI (acute kidney injury) (HCC)] Acute cerebrovascular disease (4 sources) Lacunar infarction; Translations: [Other cerebral infarction due to occlusion or stenosis of small artery] 06-24-2023 Chronic Acute myocardial infarction (3 sources) Non-ST elevation (NSTEMI) myocardial infarction; Translations: [Non-ST elevation (NSTEMI) myocardial infarction] Onset: 8 Chronic Acute posthemorrhagic anemia (1 source) Acute posthemorrhagic anemia; Translations: [Acute posthemorrhagic anemia] Onset: 8 Episodic Cancer of prostate (1 source) Personal history of malignant neoplasm of prostate; Translations: [Personal history of malignant neoplasm of prostate] Onset: 8 Episodic Cardiac dysrhythmias (3 sources) Sinus tachycardia; Translations: [Sinus tachycardia] Onset: 9 04-10-2019 Chronic Chronic kidney disease (11 sources) Chronic kidney disease, unspecified; Translations: [Chronic kidney disease] Onset: 8 04-08-2019 Chronic Chronic kidney disease (9 sources) Chronic kidney disease; Translations: [Chronic kidney disease, stage III (moderate)] Onset: 2 Resolved: 2 Chronic obstructive pulmonary disease and bronchiectasis (1 source) Chronic obstructive pulmonary disease, unspecified; Translations: [Chronic obstructive pulmonary disease, unspecified] Onset: 8 Chronic Coagulation and hemorrhagic disorders (1 source) Thrombocytopenia, unspecified; Translations: [Thrombocytopenia, unspecified] Onset: 8 Chronic Complication of device; implant or graft (2 sources) Arteriosclerosis of coronary artery bypass graft; Translations: [Atherosclerosis of coronary artery bypass graft(s) without angina pectoris] Onset: 9 Chronic Coronary atherosclerosis and other heart disease (18 sources) Chronic ischemic heart disease, unspecified; Translations: [Atherosclerotic heart disease of [place] coronary artery with unstable angina pectoris] Onset: 8 03-30-2019 Chronic Deficiency and other anemia (6 sources) Anemia of renal disease; Translations: [Anemia in chronic kidney disease] Chronic Deficiency and other anemia (2 sources) Anemia in chronic kidney disease; Translations: [ANEMIA IN CHRONIC KIDNEY DISEASE] Onset: 2 Resolved: 2 Chronic Diabetes mellitus with complications (20 sources) Type 2 diabetes mellitus with diabetic chronic kidney disease; Translations: [Disorder of kidney due to diabetes mellitus] Onset: 8 Resolved: 2 Chronic Diabetes mellitus without complication (10 sources) Diabetes mellitus; Translations: [Type 2 diabetes mellitus] Onset: 8 03-30-2019 Chronic Disorders of lipid metabolism (11 sources) Other hyperlipidemia; Translations: [Hyperlipidemia] Onset: 8 03-30-2019 Chronic Diverticulosis and diverticulitis (5 sources) Diverticulosis of large intestine; Translations: [Diverticulosis large intestine w/o perforation or abscess w/o bleeding] Onset: 9 03-30-2019 Esophageal disorders (6 sources) Gastro-esophageal reflux disease without esophagitis; Translations: [Gastroesophageal reflux disease] Onset: 8 03-30-2019 Chronic Esophageal disorders (1 source) Esophageal disorders; Translations: [Gastro-esophageal reflux disease with esophagitis, without bleeding] Essential hypertension (13 sources) Hypertensive disorder; Translations: [Essential hypertension] Onset: 8 03-30-2019 Chronic Fluid and electrolyte disorders (10 sources) Hypokalemia; Translations: [Metabolic acidosis, normal anion gap (NAG)] Onset: 8 04-08-2019 Episodic Heart valve disorders (7 sources) Nonrheumatic aortic (valve) insufficiency; Translations: [Nonrheumatic pulmonary valve insufficiency] Onset: 3 Chronic Hypertension with complications and secondary hypertension (20 sources) Hypertensive chronic kidney disease with stage 1 through stage 4 chronic kidney disease, or unspecified chronic kidney disease; Translations: [Chronic kidney disease due to hypertension] Onset: 8 Resolved: 2 Chronic Malignant neoplasm without specification of site (6 sources) Malignant neoplastic disease; Translations: [Cancer] Onset: 9 03-30-2019 Chronic Mood disorders (9 sources) Depressive disorder; Translations: [Major depression, single episode] Onset: 8 03-30-2019 Chronic Mood disorders (1 source) Major depressive disorder, single episode, unspecified; Translations: [Major depressive disorder, single episode, unspecified] Onset: 8 Nausea and vomiting (11 sources) Nausea and vomiting; Translations: [Nausea with vomiting, unspecified] Onset: 9 04-08-2019 Episodic Occlusion or stenosis of precerebral arteries (5 sources) Bilateral stenosis of carotid arteries; Translations: [Occlusion and stenosis of bilateral carotid arteries] Onset: 3 06-24-2023 Chronic Osteoarthritis (18 sources) Arthritis of hand; Translations: [Primary osteoarthritis, left hand] Chronic Other aftercare (1 source) residential (current) use of insulin; Translations: [residential (current) use of insulin] Onset: 8 Episodic Other aftercare (1 source) long term (current) use of aspirin; Translations: [long term (current) use of aspirin] Onset: 8 Episodic Other aftercare (1 source) long term (current) use of oral hypoglycemic drugs; Translations: [long term (current) use of oral hypoglycemic drugs] Onset: 8 Other circulatory disease (2 sources) Orthostatic hypotension; Translations: [Orthostatic hypotension] Onset: 4 Episodic Other connective tissue disease (2 sources) Muscle pain; Translations: [MYALGIA, UNSPECIFIED SITE] Episodic Other diseases of kidney and ureters (9 sources) Secondary hyperparathyroidism; Translations: [Secondary hyperparathyroidism of renal origin] 08-14-2023 Chronic Other diseases of kidney and ureters (8 sources) Secondary hyperparathyroidism of renal origin; Translations: [Secondary hyperparathyroidism (of renal origin)] Onset: 2 Resolved: 2 Chronic Other endocrine disorders (4 sources) Primary adrenocortical insufficiency; Translations: [Glucocorticoid deficiency] Onset: 8 08-14-2023 Chronic Other endocrine disorders (9 sources) [facility]'s disease; 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] Onset: 9 03-30-2019 Chronic Other endocrine disorders (2 sources) Primary adrenocortical insufficiency; 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] Onset: 8 Chronic Other gastrointestinal disorders (3 sources) Diarrhea; Translations: [Diarrhea, unspecified] 09-14-2020 Episodic Other hereditary and degenerative nervous system conditions (1 source) Restless legs syndrome; Translations: [Restless legs syndrome] Onset: 8 Chronic Other hereditary and degenerative nervous system conditions (13 sources) Restless legs; Translations: [Restless legs syndrome] Onset: 8 03-30-2019 Chronic Other inflammatory condition of skin (7 sources) Psoriasis; Translations: [Psoriasis, unspecified] Onset: 8 03-30-2019 Chronic Other nervous system disorders (2 sources) Meralgia paresthetica; Translations: [Meralgia paresthetica] Onset: 9 04-09-2019 Chronic Other nervous system disorders (6 sources) [place] left ulnar nerve palsy; Translations: [Lesion of ulnar nerve, left upper limb] Chronic Other nervous system disorders (6 sources) [place] right ulnar nerve palsy; Translations: [Lesion of ulnar nerve, right upper limb] Chronic Other nervous system disorders (3 sources) Polyneuropathy; Translations: [Polyneuropathy, unspecified] Onset: 3 12-16-2022 Chronic Other nervous system disorders (1 source) Postoperative pain ; Translations: [Post-op pain] Episodic Other nutritional; endocrine; and metabolic disorders (1 source) Body mass index (BMI) 36.0-36.9, adult; Translations: [Body mass index (BMI) 36.0-36.9, adult] Onset: 8 Chronic Other nutritional; endocrine; and metabolic disorders (1 source) Obesity, unspecified; Translations: [Obesity, unspecified] Onset: 8 Chronic Other nutritional; endocrine; and metabolic disorders (6 sources) Hypomagnesemia; Translations: [Hypomagnesemia] 08-14-2023 Chronic Other nutritional; endocrine; and metabolic disorders (5 sources) Hypomagnesemia; Translations: [Disorders of magnesium metabolism] Chronic Other nutritional; endocrine; and metabolic disorders (2 sources) Obesity; Translations: [Obesity, unspecified] Chronic Other screening for suspected conditions (not mental disorders or infectious disease) (3 sources) Increased bilirubin level; Translations: [Elevated bilirubin] Onset: 9 04-08-2019 Chronic Other screening for suspected conditions (not mental disorders or infectious disease) (11 sources) Raised TSH level; Translations: [Blood chemistry abnormal] 03-15-2018 Episodic Parkinson`s disease (14 sources) Parkinson's disease; Translations: [Parkinson's disease] Onset: 3 06-24-2023 Chronic Pulmonary heart disease (11 sources) Other pulmonary embolism without acute cor pulmonale; Translations: [Pulmonary embolism] Onset: 8 Resolved: 9 03-30-2019 Episodic Residual codes; unclassified (1 source) Obstructive sleep apnea (adult) (pediatric); Translations: [Obstructive sleep apnea (adult) (pediatric)] Onset: 8 Chronic Residual codes; unclassified (9 sources) Obstructive sleep apnea syndrome; Translations: [Obstructive sleep apnea] Onset: 4 04-10-2019 Chronic Residual codes; unclassified (3 sources) Periodic limb movement disorder; Translations: [Periodic limb movement disorder] Onset: 3 12-16-2022 Chronic Screening and history of mental health and substance abuse codes (1 source) Personal history of nicotine dependence; Translations: [Personal history of nicotine dependence] Onset: 8 Episodic Spondylosis; intervertebral disc disorders; other back problems (7 sources) Lumbar spondylosis; Translations: [Lumbar spondylosis] Onset: 9 03-30-2019 Chronic Thyroid disorders (3 sources) Hypothyroidism, unspecified; Translations: [Hypothyroidism] Onset: 8 Chronic Unclassified (1 source) CHRN KIDNEY DISEASE STG 3 UNSP; Translations: [CHRN KIDNEY DISEASE STG 3 UNSP] Onset: 3 Past or Other Problems Problem Classification Problem Date Documented Date Episodic/Chronic Chronic obstructive pulmonary disease and bronchiectasis (1 source) Bronchitis; Translations: [Bronchitis] Episodic Complications of surgical procedures or medical care (5 sources) Acute pulmonary insufficiency following thoracic surgery; Translations: [Postoperative fever] Onset: 04-07-2018 04-10-2019 Episodic Deficiency and other anemia (3 sources) Iron deficiency anemia; Translations: [Iron deficiency anemia] Onset: 04-09-2019 04-10-2019 Episodic Other connective tissue disease (5 sources) Neurogenic pain; Translations: [Neuralgia and neuritis, unspecified] Onset: 12-16-2022 06-24-2023 Episodic Other connective tissue disease (5 sources) Spasm of cervical paraspinous muscle; Translations: [Other muscle spasm] Onset: 10-11-2022 06-24-2023 Episodic Other connective tissue disease (3 sources) Cramp; Translations: [Cramp and spasm] Onset: 12-16-2022 12-16-2022 Episodic Other injuries and conditions due to external causes (1 source) Systemic inflammatory response syndrome; Translations: [SIRS (systemic inflammatory response syndrome) (HCC)] Episodic Other nervous system disorders (6 sources) Tremor; Translations: [Tremors of nervous system] Onset: 03-30-2019 03-30-2019 Episodic Other nervous system disorders (4 sources) Abnormal gait; Translations: [Abnormality of gait and mobility] Onset: 04-09-2019 04-10-2019 Episodic Other nervous system disorders (5 sources) Impaired cognition; Translations: [Other symptoms and signs involving cognitive functions and awareness] Onset: 12-16-2022 06-24-2023 Episodic Residual codes; unclassified (2 sources) Dyssomnia; Translations: [Other sleep disturbances] Onset: 08-04-2018 Episodic Septicemia (except in labor) (4 sources) Sepsis; Translations: [Sepsis] Onset: 04-07-2019 04-10-2019 Episodic Spondylosis; intervertebral disc disorders; other back problems (9 sources) Spinal stenosis of lumbar region; Translations: [Low back pain] Onset: 08-12-2017 03-30-2019 Episodic Substance-related disorders (5 sources) Stopped smoking; Translations: [Former smoker, stopped smoking in distant past] Onset: 03-30-2019 03-30-2019 Thyroid disorders (7 sources) Disorder of thyroid gland; Translations: [Thyroid disease] Onset: 03-30-2019 03-30-2019 Episodic Results Test Name Value Interpretation Reference Range Facility Erythrocyte distribution wid th Auto (RBC) [Ratio]on 01-22-2024 Erythrocyte distribution width (RBC) [Ratio] 12.0 % 11.0-15.0 [facility] Estimated glomerular filtrat ion rate (GFR) non- Americanon 01-22-2024 GFR/1.73 sq M.predicted among non-blacks MDRD (S/P/Bld) [Vol rate/Area] 29 mL/min/{1.73_m2} Low >=60 [facility] Hematocrit Auto (Bld) [Volum e fraction]on 01-22-2024 Hematocrit (Bld) [Volume fraction] 44.0 % 42.0-54.0 [facility] Hemoglobin [Mass/volume] in Bloodon 01-22-2024 Hemoglobin (Bld) [Mass/Vol] 15.0 g/dL 14.0-18.0 [facility] Laboratory - Chemistry and C hemistry - challengeon 01-22-2024 Albumin [Mass/Vol] 3.6 g/dL 3.4-5.0 [facility] Calcium [Mass/Vol] 8.9 mg/dL 8.5-10.1 [facility] Chloride [Moles/Vol] 99 mmol/L 98-107 [facility] CO2 [Moles/Vol] 28.7 mmol/L 21.0-32.0 [facility] Creatinine [Mass/Vol] 2.24 mg/dL High 0.70-1.30 [facility] GFR/1.73 sq M.predicted MDRD (S/P/Bld) [Vol rate/Area] 35 mL/min/{1.73_m2} Low >=60 [facility] Glucose [Mass/Vol] 303 mg/dL High 74-106 [facility] Magnesium [Mass/Vol] 1.9 mg/dL 1.8-2.4 [facility] Potassium [Moles/Vol] 4.9 mmol/L 3.5-5.1 [facility] Sodium [Moles/Vol] 137 mmol/L 136-145 [facility] Urate [Mass/Vol] 7.7 mg/dL High 3.5-7.2 [facility] Urea nitrogen [Mass/Vol] 33.0 mg/dL High 7.0-18.0 [facility] Urea nitrogen/Creatini ne [Mass ratio] 14.7 mg/mg [facility] Bilirubin Ql (U) Negative NEGATIVE [facility] Glucose (U) [Mass/Vol] mg/dL Abnormal NEGATIVE [facility] Ketones Ql (U) Negative NEGATIVE [facility] pH (U) 5.5 [pH] 5.0-9.0 [facility] Specific gravity (U) [Rel density] 1.015 1.005-1.025 [facility] Urobilinogen Qn (U) 0.2 {Yared'U}/dL 0.2-1.0 [facility] - Specimen inform ationon 01-22-2024 Appearance (U) CLEAR CLEAR [facility] Color (U) LT. YELLOW YELLOW [facility] - Urinalysison Leukocyte esterase Test strip Ql (U) Negative NEGATIVE [facility] Mucus Ql (Urine sed) TRACE Abnormal NONE SEEN [facility] Nitrite Ql (U) Negative NEGATIVE [facility] Protein (U) [Mass/Vol] 11.7 mg/dL <=11.9 [facility] Protein Ql (U) Negative NEG/TRACE [facility] Leukocytes [#/volume] correc darlyn for nucleated erythrocytes in Blood by Automated counon 01-22-2024 WBC corrected for nucl RBC Auto (Bld) [#/Vol] 9.7 10 3/uL 4.0-11.0 [facility] MCH Auto (RBC) [Entitic mass ]on 01-22-2024 MCH (RBC) [Entitic mass] 31.5 pg 25.9-34.0 [facility] MCHC Auto (RBC) [Mass/Vol]on 01-22-2024 MCHC (RBC) [Mass/Vol] 34.1 g/dL 29.9-35.2 [facility] MCV Auto (RBC) [Entitic vol] on 01-22-2024 MCV (RBC) [Entitic vol] 92.4 fL 80.0-94.0 [facility] No Panel Informationon 01-21 25-Hydroxy Vitamin D Total 68.1 ng/mL [facility] Comment on above: <20 ng/mL Vit D defi cient20-<30 ng/mL Vit D [id number] ng/mL Vit D sufficient>100 ng/mL Potential Toxicity Parathyroid Hormone (Intact) 61 pg/mL 15-65 [facility] Comment on above: Performed at: [address] [id number] Director: Prakash Barbour PhD, Phone: [phone] Phosphorus Level 3.8 mg/dL 2.6-4.7 [facility] Urine Bacteria NONE SEEN #/HPF NONE SEEN [facility] Urine Occult Blood Negative NEGATIVE [facility] Urine Random Creatinine 81.08 mg/dL 20.00-300.00 [facility] Urine RBC NONE SEEN #/HPF 0-2 [facility] Urine Squamous Epithelial Cells FEW #/LPF Abnormal NONE/RARE [facility] Urine WBC NONE SEEN #/HPF NONE SEEN [facility] Platelet mean volume Auto (B ld) [Entitic vol]on 01-22-2024 Platelet mean volume (Bld) [Entitic vol] 12.7 fL 9.5-13.5 [facility] Platelets Auto (Bld) [#/Vol] on 01-22-2024 Platelets (Bld) [#/Vol] 230 10 3/uL 150-450 [facility] RBC Auto (Bld) [#/Vol]on RBC (Bld) [#/Vol] 4.76 10 6/uL 4.70-6.[address] [facility] Serum or plasma anion gap de terminationon 01-22-2024 Anion gap [Moles/Vol] 14.2 mmol/L [facility] Urine protein/creatinine rat ioon 01-22-2024 Protein/Creatinin e (U) [Ratio] 0.14 [facility] 37on 01-06-2024 37 *We will increase yo ur metoprolol to 100mg twice daily. You can take 2 tablets of your current 50mg tablets twice daily until this runs out then start the new prescription with 1 tablet daily. *No objections with your upcoming dental procedure. Normal [facility] Office Visiton 01-06-2024 Follow-up visit [id number] Don Elkins 1950 M Date Provider Department Center 01/06/2024 [facility] Family History Problem Relation Age of Onset Diabetes Mother Coronary artery disease Brother Other Brother Heart failure Brother Family Status - Relation Status Age at Mother Brother Level of Service:02576 [place] OFFICE/OUTPATIENT ESTABLISHED MOD MDM 30 MIN Reason for Visit and Comments: Hypertension [925510] Coronary Artery Disease [187] Normal [facility] Automated epithelial cells c ount in urine sediment (number/area)on 08-05-2023 Epithelial cells Auto (Urine sed) [#/Area] FEW #/LPF NONE/RARE [facility] Automated leukocytes count i n urine sediment (number/area)on 08-05-2023 WBC Auto (Urine sed) [#/Area] NONE SEEN #/HPF 0-2 [facility] Automated urine specific gra vity by refractometryon 08-05-2023 Specific gravity Refractometry automated (U) [Rel density] 1.025 1.005-1.025 [facility] Bilirubin Auto test strip (U ) [Mass/Vol]on 08-05-2023 Bilirubin (U) [Mass/Vol] Negative NEGATIVE [facility] Cholesterol in LDL Calc [Mas s/Vol]on 08-05-2023 Cholesterol in LDL [Mass/Vol] 33.0 mg/dL [facility] Comment on above: <100 mg/dl [id number] 0-129 mg/dl NEAR OR ABOVE [id number] mg/dl BORDERLINE [id number] mg/dl HIGH>190 mg/dl VERY HIGH Cholesterol in VLDL Calc [Ma ss/Vol]on 08-05-2023 Cholesterol in VLDL [Mass/Vol] 30.8 mg/dL [facility] Color Auto (U)on 08-05-2023 Color (U) YELLOW YELLOW [facility] Erythrocyte distribution wid th Auto (RBC) [Ratio]on 08-05-2023 Erythrocyte distribution width (RBC) [Ratio] 12.1 % 11.0-15.0 [facility] Estimated glomerular filtrat ion rate (GFR) non- Americanon 08-05-2023 GFR/1.73 sq M.predicted among non-blacks MDRD (S/P/Bld) [Vol rate/Area] 44 mL/min/{1.73_m2} >=60 [facility] Hematocrit Auto (Bld) [Volum e fraction]on 08-05-2023 Hematocrit (Bld) [Volume fraction] 45.3 % 42.0-54.0 [facility] Hemoglobin [Mass/volume] in Bloodon 08-05-2023 Hemoglobin (Bld) [Mass/Vol] 15.1 g/dL 14.0-18.0 [facility] Ketones Auto test strip (U) [Mass/Vol]on 08-05-2023 Ketones (U) [Mass/Vol] Negative NEGATIVE [facility] Laboratory - Chemistry and C hemistry - challengeon 08-05-2023 Albumin [Mass/Vol] 3.3 g/dL 3.4-5.0 [facility] Calcium [Mass/Vol] 8.5 mg/dL 8.5-10.1 [facility] Chloride [Moles/Vol] 98 mmol/L 98-107 [facility] Cholesterol [Mass/Vol] 110 mg/dL <=200 [facility] Cholesterol in HDL [Mass/Vol] 47 mg/dL 40-60 [facility] Comment on above: > or =60 mg/dl - LOW CARDIOVASCULAR RISK<40 mg/dl - HIGH CARDIOVASCULAR RISK CO2 [Moles/Vol] 26.4 mmol/L 21.0-32.0 [facility] Creatinine [Mass/Vol] 1.57 mg/dL 0.70-1.30 [facility] Free T4 [Mass/Vol] 0.95 ng/dL 0.76-1.46 [facility] GFR/1.73 sq M.predicted MDRD (S/P/Bld) [Vol rate/Area] 53 mL/min/{1.73_m2} >=60 [facility] Glucose [Mass/Vol] 300 mg/dL 74-106 [facility] Magnesium [Mass/Vol] 1.9 mg/dL 1.8-2.4 [facility] Potassium [Moles/Vol] 3.8 mmol/L 3.5-5.1 [facility] Sodium [Moles/Vol] 133 mmol/L 136-145 [facility] Triglyceride [Mass/Vol] 154 mg/dL <=150 [facility] TSH Qn 1.788 m[IU]/L 0.358-3.740 [facility] Urate [Mass/Vol] 5.4 mg/dL 3.5-7.2 [facility] Urea nitrogen [Mass/Vol] 23.0 mg/dL 7.0-18.0 [facility] Urea nitrogen/Creatini ne [Mass ratio] 14.6 mg/mg [facility] - Urinalysison Protein (U) [Mass/Vol] 19.0 mg/dL <=11.9 [facility] Leukocytes [#/volume] correc darlyn for nucleated erythrocytes in Blood by Automated counon 08-05-2023 WBC corrected for nucl RBC Auto (Bld) [#/Vol] 11.2 10 3/uL 4.0-11.0 [facility] MCH Auto (RBC) [Entitic mass ]on 08-05-2023 MCH (RBC) [Entitic mass] 31.7 pg 25.9-34.0 [facility] MCHC Auto (RBC) [Mass/Vol]on 08-05-2023 MCHC (RBC) [Mass/Vol] 33.3 g/dL 29.9-35.2 [facility] MCV Auto (RBC) [Entitic vol] on 08-05-2023 MCV (RBC) [Entitic vol] 95.2 fL 80.0-94.0 [facility] Microalbumin [Mass/volume] i n Urineon 08-05-2023 Albumin DL <= 20 mg/L (U) [Mass/Vol] 3.7 mg/dL <=30.0 [facility] Mucus LM Ql (Urine sed)on Mucus Ql (Urine sed) TRACE NONE SEEN [facility] No Panel Informationon 08-04 25-Hydroxy Vitamin D Total 61.2 ng/mL [facility] Comment on above: <20 ng/mL Vit D defi cient20-<30 ng/mL Vit D [id number] ng/mL Vit D sufficient>100 ng/mL Potential Toxicity C-Peptide 19.7 ng/mL 1.1-4.4 [facility] Comment on above: C-Peptide reference interval is for fasting patients.Performed at: [facility] - [facility] [address] [id number] Director: Prakash Barbour PhD, Phone: [phone] Free Triiodothyronine 1.71 pg/mL 2.18-3.98 [facility] Parathyroid Hormone (Intact) 34 pg/mL 15-65 [facility] Comment on above: Performed at: [facility] - [facility] [address] [id number] Director: Prakash Barbour PhD, Phone: [phone] Phosphorus Level 3.9 mg/dL 2.6-4.7 [facility] Urine Random Creatinine 178.56 mg/dL 20.00-300.00 [facility] Platelet mean volume Auto (B ld) [Entitic vol]on 08-05-2023 Platelet mean volume (Bld) [Entitic vol] 12.7 fL 9.5-13.5 [facility] Platelets Auto (Bld) [#/Vol] on 08-05-2023 Platelets (Bld) [#/Vol] 234 10 3/uL 150-450 [facility] Protein Auto test strip (U) [Mass/Vol]on 08-05-2023 Protein (U) [Mass/Vol] Negative NEG/TRACE [facility] RBC Auto (Bld) [#/Vol]on RBC (Bld) [#/Vol] 4.76 10 6/uL 4.70-6.[address] [facility] Serum or plasma anion gap de terminationon 08-05-2023 Anion gap [Moles/Vol] 12.4 mmol/L [facility] Serum or plasma total choles terol/high density lipoprotein (HDL) cholesterol mass caden 08-05-2023 Cholesterol.total /Cholesterol in HDL [Mass ratio] 2.3 {ratio} [facility] Comment on above: 3.3 - 4.4 LOW RISK4. 4 - 7.1 AVERAGE RISK7.1 - 11.0 MODERATE RISK>11.0 HIGH RISK Specific gravity Auto test s trip (U) [Rel density]on 08-05-2023 Specific gravity (U) [Rel density] CLEAR CLEAR [facility] Urine bacteria detection by automated methodon 08-05-2023 Bacteria Auto Ql (U) NONE SEEN #/HPF NONE SEEN [facility] Urine glucose measurement by test strip (mass/volume)on 08-05-2023 Glucose Test strip (U) [Mass/Vol] Negative NEGATIVE [facility] Urine hemoglobin detection b y automated test stripon 08-05-2023 Hemoglobin Auto test strip Ql (U) Negative NEGATIVE [facility] Urine microalbumin/creatinin e mass ratioon 08-05-2023 Albumin/Creatinin e DL <= 20 mg/L (U) [Mass ratio] 20.9 mg/g 0.0-29.9 [facility] Comment on above: NO MICROALBUMINURIA 0-29 MG/GCLINICAL MICROALBUMINURIA 30-300 MG/GMACROALBUMINURIA >300 MG/G Urine nitrite detection by a utomated test stripon 08-05-2023 Nitrite Auto test strip Ql (U) Negative NEGATIVE [facility] Urine protein/creatinine rat ioon 08-05-2023 Protein/Creatinin e (U) [Ratio] 0.11 [facility] Urine sediment leukocyte cou nt by microscopy (number/high power field)on 08-05-2023 WBC LM.HPF (Urine sed) [#/Area] NONE SEEN #/HPF NONE SEEN [facility] Urobilinogen Auto test strip (U) [Mass/Vol]on 08-05-2023 Urobilinogen Qn (U) 0.2 {Yared'U}/dL 0.2-1.0 [facility] pH Auto test strip (U)on pH (U) 5.5 [pH] 5.0-9.0 [facility] Office Visiton 05-26-2023 Follow-up visit [id number] Don Elkins 1950 M Date Provider Department Center 05/26/2023 MARJ WHITTEN [place] [facility] Family History Problem Relation Age of Onset Diabetes Mother Coronary artery disease Brother Other Brother Heart failure Brother Family Status - Relation Status Age at Mother Brother Level of Service:88180 [place] OFFICE/OUTPATIENT ESTABLISHED LOW MDM 20 MIN Normal [facility] PTH INTACTon 06-14-2022 PTH, Intact 48 pg/mL Normal 15-65 [facility] Comment on above: Performed By: #### P THINT #### [facility] [address] [place] [address] Dr. Stu Sequeira HEMOGRAM AND PLATELon 2022 Hematocrit (Bld) [Volume fraction] 47.3 % Normal 42.0-54.0 [facility] Comment on above: Performed By: #### H H #### [facility] [address] [address] [address] Stu Sequeira Hemoglobin (Bld) [Mass/Vol] 14.7 g/dL Normal 14.0-18.0 [facility] Comment on above: Performed By: #### H H #### [facility] [address] [place] [address] Dr. Stu Sequeira MCH (RBC) [Entitic mass] 31.0 pg Normal 25.9-34.0 [facility] Comment on above: Performed By: #### H H #### [facility] [address] [place] [address] Dr. Stu Sequeira MCHC (RBC) [Mass/Vol] 31.1 g/dL Normal 29.9-35.2 [facility] Comment on above: Performed By: #### H H #### [facility] [address] [place] [address] Dr. Stu Sequeira MCV (RBC) [Entitic vol] 99.8 fL Critically high 80.0-94.0 [facility] Comment on above: Performed By: #### H H #### [facility] [address] [place] [address] Dr. Stu Sequeira PLT 268 103/ul Normal 150-450 [facility] Comment on above: Performed By: #### H H #### [facility] [address] [place] [address] Dr. Stu Sequeira RBC 4.74 106/ul Normal 4.70-6.10 [facility] Comment on above: Performed By: #### H H #### [facility] [address] [place] [address] Dr. Stu Sequeira WBC 9.8 103/ul Normal 4.0-11.0 [facility] Comment on above: Performed By: #### H H #### [facility] [address] [place] [address] Dr. Stu Sequeira MAGNESIUMon 06-13-2022 Magnesium [Mass/Vol] 1.6 mg/dL Critically low 1.8-2.4 [facility] Comment on above: Performed By: #### U SANTINO, MG, RENAL #### [facility] [address] [place] [address] Dr. Stu Sequeira RENAL FUNCTION PANELon 06-13 Albumin [Mass/Vol] 3.8 g/dL Normal 3.4-5.0 [facility] Comment on above: Performed By: #### U SANTINO, MG, RENAL #### [facility] [address] [place] [address] Dr. Stu Sequeira Calcium [Mass/Vol] 9.2 mg/dL Normal 8.5-10.1 [facility] Comment on above: Performed By: #### U SANTINO, MG, RENAL #### [facility] [address] [address] [address] Stu Sequeira Chloride [Moles/Vol] 99 mmol/L Normal 98-107 [facility] Comment on above: Performed By: #### U SANTINO, MG, RENAL #### [facility] [address] [place] [address] Dr. Stu Sequeira CO2 [Moles/Vol] 32.2 mmol/L Critically high 21.0-32.0 [facility] Comment on above: Performed By: #### U SANTINO, MG, RENAL #### [facility] [address] [place] [address] Dr. Stu Sequeira Creatinine [Mass/Vol] 1.58 mg/dL Critically high 0.70-1.30 [facility] Comment on above: Performed By: #### U SANTINO, MG, RENAL #### [facility] [address] [place] [address] Dr. Stu Sequeira EGFR-AF CENTRAL AFRICAN 53 mL/min/1.73m2 Critically low >=60 [facility] Comment on above: Performed By: #### U SANTINO, MG, RENAL #### [facility] [address] [place] [address] Dr. Stu Sequeira EGFR-NON AF CENTRAL AFRICAN 43 mL/min/1.73m2 Critically low >=60 [facility] Comment on above: Performed By: #### U SANTINO, MG, RENAL #### [facility] [address] [place] [address] Dr. Stu Sequeira Glucose [Mass/Vol] 95 mg/dL Normal 74-106 [facility] Comment on above: Performed By: #### U SANTINO, MG, RENAL #### [facility] [address] [place] [address] Dr. Stu Sequeira Phosphate [Mass/Vol] 4.2 mg/dL Normal 2.6-4.7 [facility] Comment on above: Performed By: #### U SANTINO, MG, RENAL #### [facility] [address] [place] [address] Dr. Stu Sequeira Potassium [Moles/Vol] 4.9 mmol/L Normal 3.5-5.1 [facility] Comment on above: Performed By: #### U SANTINO, MG, RENAL #### [facility] [address] [place] [address] Dr. Stu Sequeira Sodium [Moles/Vol] 138 mmol/L Normal 136-145 [facility] Comment on above: Performed By: #### U SANTINO, MG, RENAL #### [facility] [address] [place] [address] Dr. Stu Sequeira Urea nitrogen [Mass/Vol] 24.0 mg/dL Critically high 7.0-18.0 [facility] Comment on above: Performed By: #### U SANTINO, MG, RENAL #### [facility] [address] [place] [address] Dr. Stu Sequeira UA RANDOM W/MICROSCOPICon BACTERIA TRACE Abnormal NONE SEEN [facility] Comment on above: Performed By: #### U AMIC #### [facility] [address] [place] [address] Dr. Stu Sequeira Bilirubin Ql (U) Negative Normal NEGATIVE [facility] Comment on above: Performed By: #### U AMIC #### [facility] [address] [place] [address] Dr. Stu Sequeira CAST NONE SEEN Normal NONE SEEN [facility] Comment on above: Performed By: #### U AMIC #### [facility] [address] [place] [address] Dr. Stu Sequeira Clarity (U) CLEAR Normal CLEAR [facility] Comment on above: Performed By: #### U AMIC #### [facility] [address] [place] [address] Dr. Stu Sequeira Color (U) YELLOW Normal YELLOW [facility] Comment on above: Performed By: #### U AMIC #### [facility] [address] [place] [address] Dr. Stu Sequeira Crystals LM Nom (Urine sed) NONE SEEN Normal NONE SEEN [facility] Comment on above: Performed By: #### U AMIC #### [facility] [address] [address] [address] Stu Sequeira Epithelial cells LM Ql (Urine sed) RARE Normal NONE SEEN /RARE [facility] Comment on above: Performed By: #### U AMIC #### [facility] [address] [place] [address] Dr. Stu Sequeira Glucose Ql (U) Negative Normal NEGATIVE [facility] Comment on above: Performed By: #### U AMIC #### [facility] [address] [address] [address] Stu Sequeira Hemoglobin Ql (U) Negative Normal NEGATIVE [facility] Comment on above: Performed By: #### U AMIC #### [facility] [address] [place] [address] Dr. Stu Sequeira Ketones Ql (U) Negative Normal NEGATIVE [facility] Comment on above: Performed By: #### U AMIC #### [facility] [address] [place] [address] Dr. Stu Sequeira LEUKOCYTES Negative Normal NEGATIVE [facility] Comment on above: Performed By: #### U AMIC #### [facility] [address] [place] [address] Dr. Stu Sequeira MUCOUS NONE SEEN Normal NONE SEEN [facility] Comment on above: Performed By: #### U AMIC #### [facility] [address] [place] [address] Dr. Stu Sequeira Nitrite Ql (U) Negative Normal NEGATIVE [facility] Comment on above: Performed By: #### U AMIC #### [facility] [address] [address] [address] Stu Sequeira pH (U) 5.5 [pH] Normal 5-9 [facility] Comment on above: Performed By: #### U AMIC #### [facility] [address] [place] [address] Dr. Stu Sequeira RBC NONE SEEN Abnormal 0-2 [facility] Comment on above: Performed By: #### U AMIC #### [facility] [address] [place] [address] Dr. Stu Sequeira SPEC GRAVITY 1.025 Normal 1.005-<=1.02 5 [facility] Comment on above: Performed By: #### U AMIC #### [facility] [address] [place] [address] Dr. Stu Sequeira UA PROTEIN Negative Normal NEGATIVE/ TRACE [facility] Comment on above: Performed By: #### U AMIC #### [facility] [address] [place] [address] Dr. Stu Sequeira Urobilinogen Qn (U) 0.2 {Yared'U}/dL Normal 0.2 - 1.0 [facility] Comment on above: Performed By: #### U AMIC #### [facility] [address] [place] [address] Dr. Stu Sequeira WBC 0-2 Abnormal NONE SEEN [facility] Comment on above: Performed By: #### U AMIC #### [facility] [address] [place] [address] Dr. Stu Sequeira URIC ACID SERUMon 06-13-2022 Urate [Mass/Vol] 5.7 mg/dL Normal 3.5-7.2 [facility] Comment on above: Performed By: #### U SANTINO, MG, RENAL #### [facility] [address] [place] [address] Dr. Stu Sequeira URINE T PROTEIN CREAT RATIOo n 06-13-2022 Protein (U) [Mass/Vol] 13.6 mg/dL Critically high <=12.0 [facility] Comment on above: Performed By: #### U RTPCR #### [facility] [address] [place] [address] Dr. Stu Sequeira UR PROT CREAT RAT 0.10 Normal [facility] Comment on above: Performed By: #### U RTPCR #### [facility] [address] [place] [address] Dr. Stu Sequeira URINE CREAT 133.40 mg/dL Normal 20.00-300.00 [facility] Comment on above: Performed By: #### U RTPCR #### [facility] [address] [place] [address] Dr. Stu Sequeira VITAMIN D 25 OHon 06-13-2022 VIT D 25-OH 66.5 ng/mL Normal [facility] Comment on above: Performed By: #### V ITAD #### [facility] [address] [place] [address] [id number] [address] Stu Sequeira VIT D RANGES SEE BELOW Normal [facility] Comment on above: Result Comment: <20 ng/mL Vit D deficient 20 - <30 ng/mL Vit D insufficient 30 - 100 ng/mL Vit D sufficient >100 ng/mL Potential Toxicity Performed By: #### V ITAD #### [facility] [address] [place], [place] [address] Dr. Stu Sequeira ECHOCARDIO M/2D COMPLETEon 0 06-07-2022 ECHOCARDIO M/2D COMPLETE Patient: DON ELKINS Exam Date: 06/07/2022 : 1950 Gender:M Ordering : DR DAMARIS MEIER M.D. Admission #: [id number] Family : DR SAL SABILLON M.D. Order #: [id number] CLICK HERE TO VIEW EXAM ECHOCARDIOGRAM REPORT PROCEDURE: CARDIO PULMONARY ECHOCARDIO M/2D COMP INDICATIONS: Nonrheumatic aortic valve insufficiency, CABG x 3, hypertension, diabetes COMPARISON: None. DESCRIPTION: COMPLETE ECHOCARDIOGRAM Real-time transthoracic echocardiography with 2D, M-mode, spectral and color flow Doppler performed. QUALITY: Technical quality was good. 66 216# BP 134/86 LEFT VENTRICLE: Normal chamber size. Proximal septal hypertrophy (sigmoid septum). LV EF: Normal left ventricular ejection fraction, (>55%). DIASTOLIC: Normal diastolic function. ATRIAL SEPTUM: Inadequately seen. LEFT ATRIUM: Normal chamber size. RIGHT ATRIUM: Normal chamber size. RIGHT VENTRICLE: Normal chamber size. Normal right ventricular systolic function. TRICUSPID VALVE: Normal mobility and thickness. No stenosis with trivial regurgitation. No evidence of pulmonary hypertension. RVSP 29 mmHg MITRAL VALVE: Normal mobility and thickness. No evidence of mitral valve stenosis. There is no mitral annular calcification. Trivial mitral regurgitation. AORTIC VALVE: Normal trileaflet appearance. No visible sclerosis. Normal leaflet mobility. No evidence of aortic valve stenosis. Mild aortic regurgitation. AORTIC ROOT: Normal diameter and appearance. PULMONIC VALVE: Normal thickness and mobility. No stenosis. Mild regurgitation. PERICARDIUM: No evidence of pericardial effusion. IVC: Collapses with inspirations. CONCLUSION: Global left ventricular systolic function is normal; visually estimated ejection fraction is 55 to 60%. No significant wall motion abnormalities. Normal diastolic function. Right ventricle is normal in size and systolic function. Mild aortic valve regurgitation. Mild pulmonic regurgitation. Adult Echocardiography Procedure Report Left Ventricle LVEDD (3.7 - 5.6 cm): 4.43 cm LVESD (2.2 - 4.0 cm): 3.10 cm LVIVS thickness (0.6 - 1.2 cm): 1.43 cm LVPW thickness (0.5 - 1.0 cm): 1.06 cm e': 0.09 m/s E - e': 6.78 LVOT Max Gradient: 2.05 mm[Hg] Peak Velocity (LVOT): 0.72 m/s Mean Velocity (LVOT): 0.51 m/s LVOT Diameter 2.26 cm Left Ventricular Ejection Fraction: 57.52 %, 57.52 % Left Atrium LA Volume Index (2D A2C): 62.15 ml, 62.15 ml Left Atrium Systolic Dimension: 4.55 cm Mitral Valve MV E to A Ratio: 1.03, 1.03 Mitral Valve A-Wave Peak Velocity: 0.61 m/s, 0.61 m/s Mitral Valve E-Wave Peak Velocity: 0.63 m/s, 0.63 m/s Right Ventricle Aorta AO Root Diam: 3.33 cm Aortic Valve AoV Area (Peak Jeremiah): 2.78 cm2, 2.78 cm2 AoV Area (VTI): 2.68 cm2, 2.68 cm2 Peak Velocity(Antegrade Flow): 1.03 m/s, 1.03 m/s Peak Gradient(Antegrade Flow): 4.25 mm[Hg], 4.25 mm[Hg] Mean Velocity(Antegrade Flow): 0.72 m/s, 0.72 m/s Mean Gradient(Antegrade Flow): 2.37 mm[Hg], 2.37 mm[Hg] Velocity Time Integral: 25.69 cm, 25.69 cm Tricuspid Valve Peak Velocity (Regurgitant Flow): 2.56 m/s Peak Velocity: 0.34 m/s Pulmonic Valve Peak Velocity: 1.00 m/s, 1.00 m/s Peak Gradient: 4.04 mm[Hg], 4.04 mm[Hg] Right Atrium Right Atrium Systolic Pressure: 31.61 ml, 31.61 ml Dictated by: Damaris Meier M.D. on 06/07/2022 at 12:21 Approved by: Damaris Meier M.D. on 06/07/2022 at 12:23 Normal [facility] LIPID PROFILEon 05-24-2022 CHOL-HDL RATIO NORM SEE BELOW Normal [facility] Comment on above: Result Comment: 3.3 - 4.4 LOW RISK 4.4 - 7.1 AVERAGE RISK 7.1 - 11.0 MODERATE RISK >11.0 HIGH RISK Performed By: #### L IPID #### [facility] [address] [address] [address] Stu Sequeira Cholesterol [Mass/Vol] 111 mg/dL Normal <=200 [facility] Comment on above: Performed By: #### L IPID #### [facility] [address] [address] [address] Stu Sequeira Cholesterol in HDL [Mass/Vol] 46 mg/dL Normal 40-60 [facility] Comment on above: Performed By: #### L IPID #### [facility] [address] [address] [address] Stu Sequeira Cholesterol in LDL [Mass/Vol] 47.0 mg/dL Normal [facility] Comment on above: Performed By: #### L IPID #### [facility] [address] [address] [address] Stu Sequeira Cholesterol.total /Cholesterol in HDL [Mass ratio] 2.4 {ratio} Normal [facility] Comment on above: Performed By: #### L IPID #### [facility] [address] [address] [address] Stu Sequeira HDL NORMAL > or = 60 mg/dl - LO W CARDIOVASCULAR RISK <40 mg/dl - HIGH CARDIOVASCULAR RISK Normal [facility] Comment on above: Performed By: #### L IPID #### [facility] [address] [address] [address] Stu Sequeira LDL CALC NORMAL SEE BELOW Normal [facility] Comment on above: Result Comment: <100 mg/dl OPTIMAL 100 - 129 mg/dl NEAR OR ABOVE OPTIMAL 130 - 159 mg/dl BORDERLINE HIGH 160 - 189 mg/dl HIGH >190 mg/dl VERY HIGH Performed By: #### L IPID #### [facility] [address] [place] [address] Dr. Stu Sequeira Triglyceride [Mass/Vol] 90 mg/dL Normal <=150 [facility] Comment on above: Performed By: #### L IPID #### [facility] [address] [place] [address] Dr. Stu Sequeira VLDL CALC 18.0 mg/dL Normal [facility] Comment on above: Performed By: #### L IPID #### [facility] [address] [place] [address] Dr. Stu Sequeira PTH INTACTon 11-20-2021 PTH, Intact 38 pg/mL Normal 15-65 [facility] Comment on above: Performed By: #### U RTPCR #### [facility] [address] [place] [address] Dr. Stu Sequeira HEMOGRAM AND PLATELon 2021 Hematocrit (Bld) [Volume fraction] 43.5 % Normal 42.0-54.0 [facility] Comment on above: Performed By: #### U RTPCR #### [facility] [address] [place] [address] Dr. Stu Sequeira Hemoglobin (Bld) [Mass/Vol] 14.5 g/dL Normal 14.0-18.0 [facility] Comment on above: Performed By: #### U RTPCR #### [facility] [address] [place] [address] Dr. Stu Sequeira MCH (RBC) [Entitic mass] 31.2 pg Normal 25.9-34.0 [facility] Comment on above: Performed By: #### U RTPCR #### [facility] [address] [place] [address] Dr. Stu Sequeira MCHC (RBC) [Mass/Vol] 33.3 g/dL Normal 29.9-35.2 [facility] Comment on above: Performed By: #### U RTPCR #### [facility] [address] [place] [address] Dr. Stu Sequeira MCV (RBC) [Entitic vol] 93.5 fL Normal 80.0-94.0 [facility] Comment on above: Performed By: #### U RTPCR #### [facility] [address] [place] [address] Dr. Stu Sequeira PLT 259 103/ul Normal 150-450 [facility] Comment on above: Performed By: #### U RTPCR #### [facility] [address] [place] [address] Dr. Stu Sequeira RBC 4.65 106/ul Critically low 4.70-6.10 [facility] Comment on above: Performed By: #### U RTPCR #### [facility] [address] [place] [address] Dr. Stu Sequeira WBC 9.9 103/ul Normal 4.0-11.0 [facility] Comment on above: Performed By: #### U RTPCR #### [facility] [address] [place] [address] Dr. Stu Sequeira MAGNESIUMon 11-17-2021 Magnesium [Mass/Vol] 2.0 mg/dL Normal 1.8-2.4 [facility] Comment on above: Performed By: #### U RTPCR #### [facility] [address] [place] [address] Dr. Stu Sequeira RENAL FUNCTION PANELon 11-17 Albumin [Mass/Vol] 3.5 g/dL Normal 3.4-5.0 [facility] Comment on above: Performed By: #### U RTPCR #### [facility] [address] [place] [address] Dr. Stu Sequeira Calcium [Mass/Vol] 8.8 mg/dL Normal 8.5-10.1 [facility] Comment on above: Performed By: #### U RTPCR #### [facility] [address] [place] [address] Dr. Stu Sequeira Chloride [Moles/Vol] 105 mmol/L Normal 98-107 [facility] Comment on above: Performed By: #### U RTPCR #### [facility] [address] [address] [address] Stu Sequeira CO2 [Moles/Vol] 28.4 mmol/L Normal 21.0-32.0 [facility] Comment on above: Performed By: #### U RTPCR #### [facility] [address] [address] [address] Stu Sequeira Creatinine [Mass/Vol] 1.69 mg/dL Critically high 0.70-1.30 [facility] Comment on above: Performed By: #### U RTPCR #### [facility] [address] [address] [address] Stu Sequeira EGFR-AF CENTRAL AFRICAN 49 mL/min/1.73m2 Critically low >=60 [facility] Comment on above: Performed By: #### U RTPCR #### [facility] [address] [address] [address] Stu Sequeira EGFR-NON AF CENTRAL AFRICAN 40 mL/min/1.73m2 Critically low >=60 [facility] Comment on above: Performed By: #### U RTPCR #### [facility] [address] [address] [address] Stu Sequeira Glucose [Mass/Vol] 120 mg/dL Critically high 74-106 [facility] Comment on above: Performed By: #### U RTPCR #### [facility] [address] [address] [address] Stu Sequeira Phosphate [Mass/Vol] 3.7 mg/dL Normal 2.6-4.7 [facility] Comment on above: Performed By: #### U RTPCR #### [facility] [address] [address] [address] Stu Sequeira Potassium [Moles/Vol] 5.0 mmol/L Normal 3.5-5.1 [facility] Comment on above: Performed By: #### U RTPCR #### [facility] [address] [address] [address] Stu Sequeira Sodium [Moles/Vol] 139 mmol/L Normal 136-145 [facility] Comment on above: Performed By: #### U RTPCR #### [facility] [address] [address] [address] Stu Sequeira Urea nitrogen [Mass/Vol] 21.0 mg/dL Critically high 7.0-18.0 [facility] Comment on above: Performed By: #### U RTPCR #### [facility] [address] [address] [address] Stu Sequeira UA RANDOM W/MICROSCOPICon BACTERIA NONE SEEN Normal NONE SEEN [facility] Comment on above: Performed By: #### U AMIC #### [facility] [address] [place] [address] Dr. Stu Sequeira Bilirubin Ql (U) Negative Normal NEGATIVE [facility] Comment on above: Performed By: #### U AMIC #### [facility] [address] [place] [address] Dr. Stu Sequeira CAST NONE SEEN Normal NONE SEEN [facility] Comment on above: Performed By: #### U AMIC #### [facility] [address] [place] [address] Dr. Stu Sequeira Clarity (U) SL CLOUDY Abnormal CLEAR [facility] Comment on above: Performed By: #### U AMIC #### [facility] [address] [place] [address] Dr. Stu Sequeira Color (U) LT. YELLOW Normal YELLOW [facility] Comment on above: Performed By: #### U AMIC #### [facility] [address] [address] [address] Stu Sequeira Crystals LM Nom (Urine sed) NONE SEEN Normal NONE SEEN [facility] Comment on above: Performed By: #### U AMIC #### [facility] [address] [place] [address] Dr. Stu Sequeira Epithelial cells LM Ql (Urine sed) RARE Normal NONE SEEN /RARE [facility] Comment on above: Performed By: #### U AMIC #### [facility] [address] [place] [address] Dr. Stu Sequeira Glucose Ql (U) Negative Normal NEGATIVE [facility] Comment on above: Performed By: #### U AMIC #### [facility] [address] [address] [address] Stu Sequeira Hemoglobin Ql (U) Negative Normal NEGATIVE [facility] Comment on above: Performed By: #### U AMIC #### [facility] [address] [address] [address] Stu Sequeira Ketones Ql (U) Negative Normal NEGATIVE [facility] Comment on above: Performed By: #### U AMIC #### [facility] [address] [address] [address] Stu Sequeira LEUKOCYTES Negative Normal NEGATIVE [facility] Comment on above: Performed By: #### U AMIC #### [facility] [address] [address] [address] Stu Sequeira MUCOUS NONE SEEN Normal NONE SEEN [facility] Comment on above: Performed By: #### U AMIC #### [facility] [address] [place] [address] Dr. Stu Sequeira Nitrite Ql (U) Negative Normal NEGATIVE [facility] Comment on above: Performed By: #### U AMIC #### [facility] [address] [address] [address] tSu Sequeira pH (U) 5.0 [pH] Normal 5-9 [facility] Comment on above: Performed By: #### U AMIC #### [facility] [address] [place] [address] Dr. Stu Sequeira RBC 0-2 Normal 0-2 [facility] Comment on above: Performed By: #### U AMIC #### [facility] [address] [place] [address] Dr. Stu Sequeira SPEC GRAVITY 1.025 Normal 1.005-<=1.02 5 [facility] Comment on above: Performed By: #### U AMIC #### [facility] [address] [place] [address] Dr. Stu Sequeira UA PROTEIN Negative Normal NEGATIVE/ TRACE [facility] Comment on above: Performed By: #### U AMIC #### [facility] [address] [place] [address] Dr. tSu Sequeira Urobilinogen Qn (U) 0.2 {Yared'U}/dL Normal 0.2 - 1.0 [facility] Comment on above: Performed By: #### U AMIC #### [facility] [address] [place] [address] Dr. Stu Sequeira WBC NONE SEEN Normal NONE SEEN [facility] Comment on above: Performed By: #### U AMIC #### [facility] [address] [place] [address] Dr. Stu Sequeira URIC ACID SERUMon 11-17-2021 Urate [Mass/Vol] 7.6 mg/dL Critically high 3.5-7.2 [facility] Comment on above: Performed By: #### U RTPCR #### [facility] [address] [place] [address] Dr. Stu Sequeira URINE T PROTEIN CREAT RATIOo n 11-17-2021 Protein (U) [Mass/Vol] 19.9 mg/dL Critically high <=12.0 [facility] Comment on above: Performed By: #### U RTPCR #### [facility] [address] [place] [address] Dr. Stu Sequeira UR PROT CREAT RAT 0.13 Normal [facility] Comment on above: Performed By: #### U RTPCR #### [facility] [address] [place] [address] Dr. Stu Sequeira URINE CREAT 151.49 mg/dL Normal 20.00-300.00 [facility] Comment on above: Performed By: #### U RTPCR #### [facility] [address] [place] [address] Dr. Stu Sequeira VITAMIN D 25 OHon 11-17-2021 VIT D 25-OH 52.3 ng/mL Normal [facility] Comment on above: Performed By: #### U RTPCR #### [facility] [address] [place] [address] Dr. Stu Sequeira VIT D RANGES SEE BELOW Normal [facility] Comment on above: Result Comment: <20 ng/mL Vit D deficient 20 - <30 ng/mL Vit D insufficient 30 - 100 ng/mL Vit D sufficient >100 ng/mL Potential Toxicity Performed By: #### U RTPCR #### [facility] [address] [place] [address] Dr. Stu Sequeira Patient Correspondenceon Patient Correspondence [id number] Normal [facility] Patient Letter FTon 2020 Patient Letter [facility] May 04, 2021 Dear Don Elkins, I am corresponding to you by certified mail because you have a medical conditions that require follow-up. We received a communication that you no longer wanted to see us in follow-up and I simply asked you to sign a form stating that you have refused my recommended follow-up labs and x-rays. As I communicated before, it is certainly your prerogative to refuse these tests, but from a medical legal standpoint this puts me in a position that I need you to respond to. If you fail to do so, I will have no choice but to terminate our physician/patient relationship and you will be subsequently receiving a letter reflecting such within the next couple weeks if we do not hear back from you. I hope you are doing well in this holiday season. Sincerely, Tam Wilson M.D., FACS [facility] OVIDIO VALENTIN, Tam Silva Normal [facility] Basic Metabolic Panlon 12-20 Anion gap [Moles/Vol] 8 mmol/L Low 9-18 [facility] Calcium [Mass/Vol] 8.9 mg/dL Normal 8.5-10.2 [facility] Chloride [Moles/Vol] 103 mmol/L Normal 97-105 [facility] CO2 [Moles/Vol] 27 mmol/L Normal 22-30 [facility] Creatinine [Mass/Vol] 1.52 mg/dL High 0.73-1.22 [facility] eGFR- Amer. 55 Normal [facility] eGFR-All Other Races 46 . Normal [facility] Comment on above: Result Comment: eGFR (Estimated GFR) Units of measure: mL/min/1.73 meters squared eGFR is derived from the reexpressed MDRD Study equation using the following parameters: serum creatinine, age, gender and race. The creatinine assay has been calibrated to be traceable to IDMS. An eGFR <60 mL/min/1.73m2 for >3 months is consistent with chronic kidney disease. Refer to KDOQI guidelines for clinical interpretation. In patients with unstable renal function, e.g. those with acute kidney injury, the eGFR may not accurately reflect actual GFR. Glucose [Mass/Vol] 238 mg/dL High 74-99 [facility] Comment on above: Result Comment: The [place] [employer] (ADA) provides guidance for cutoff values for fasting glucose and random glucose. The ADA defines fasting as no caloric intake for at least 8 hours. Fasting plasma glucose results between 100 to 125 mg/dL indicate increased risk for diabetes (prediabetes). Fasting plasma glucose results greater than or equal to 126 mg/dL meet the criteria for diagnosis of diabetes. In the absence of unequivocal hyperglycemia, results should be confirmed by repeat testing. In a patient with classic symptoms of hyperglycemia or hyperglycemic crisis, random plasma glucose results greater than or equal to 200 mg/dL meet the criteria for diagnosis of diabetes. Reference: Standards of Medical Care in Diabetes 2016, [place] [employer]. Diabetes Care. 2016.39(Suppl 1). Potassium [Moles/Vol] 4.6 mmol/L Normal 3.7-5.1 [facility] Sodium [Moles/Vol] 138 mmol/L Normal 136-144 [facility] Urea nitrogen [Mass/Vol] 19 mg/dL Normal 9-24 [facility] CNOVSPon 12-20-2020 CNOVSP Visit (SP) Office (H EMASA) DON ELKINS ([id number]) 1950 M Date Time Provider Department 12/20/20 2:15 PM CLAUDIO PARKER During your visit today, we recorded the following information about you: Temperature Pulse Respiration Blood pressure 97.7 degrees 81/minute 16/minute 136/63 Weight Height 112.9 kg 1.727 m Claudio Parker MD 12/21/2020 12:37 PM Signed PATIENT NAME: Don Elkins DATE: 12/20/2020 PRIMARY CARE PHYSICIAN: Dr. Sal Sabillon/Marj Demarco CNP OTHER PHYSICIANS: Dr. Wilson, Dr. Cortez, Dr. Arvizu ([facility] Neurology) Portions of this encounter note have been copied from my note from 11/24/2020 and has been updated where appropriate, and reflect my current medical decision making from today. CC: This is a 70 year old male with a remote history of pulmonary embolism initially referred for evaluation of a hypercoagulable state, seen for scheduled follow-up. INTERIM HISTORY: Since the patient's initial visit here he has remained off Coumadin and currently takes aspirin 81 mg daily. He is tolerating this well with no evidence of bruising or bleeding. Since discontinuing the Coumadin he has had no signs of blood clots. Currently the patient does complain of dizziness, but apparently this been a long-term problem. No new complaints. Labs obtained since his last visit revealed no evidence of an underlying hypercoagulable condition (normal PT/PTT/thrombin time, homocystine level, protein C activity, Antithrombin antigen, factor V Leiden, functional protein S, anticardiolipin antibodies, and lupus anticoagulant). However, a prothrombin gene mutation was not obtained. MEDICATIONS: Current Outpatient Medications Medication Sig - atorvastatin (LIPITOR) 20 mg tablet Take 20 mg by mouth once daily. - carbidopa-levodopa orally disintegrating (PARCOPA) 25-100 mg per disintegrating tablet Take 1 tablet by mouth twice daily. - citalopram (CELEXA) 20 mg tablet Take 20 mg by mouth once daily. - donepezil HCl (DONEPEZIL ORAL) Take 10 mg by mouth twice daily. - GABAPENTIN ORAL Take 800 mg by mouth as directed. - insulin glargine,hum.rec.anlog (LANTUS SOLOSTAR U-100 INSULIN SUBCUTANEOUS) Inject subcutaneously. - levothyroxine 100 mcg cap Take 150 mcg by mouth once daily. - memantine (NAMENDA) 10 mg tablet Take 10 mg by mouth twice daily. - METOPROLOL TARTRATE ORAL Take 25 mg by mouth. - fish,bora,flax oils-om3,6,9no1 (OMEGA 3-6-9) 1,200 mg cap Take by mouth. - ropinirole HCl (ROPINIROLE ORAL) Take 8 mg by mouth once daily. - tiZANidine HCl 4 mg capsule Take 4 mg by mouth twice daily. - metFORMIN 500 mg tablet Take 500 mg by mouth twice daily with meals. - lisinopril 10 mg tablet Take 10 mg by mouth once daily. - simvastatin 20 mg tablet Take 20 mg by mouth daily at bedtime. - hydrocortisone 10 mg tablet Take 20 mg by mouth once daily. - fludrocortisone 0.1 mg tablet Take 0.1 mg by mouth once daily. - Aspirin 81 mg tab Take 81 mg by mouth. - Cholecalciferol, Vitamin D3, (VITAMIN D) 1,000 unit cap Take 1,000 Units by mouth once daily. - multivitamin tablet Take 1 tablet by mouth once daily. - Omeprazole 40 mg capsule Take 40 mg by mouth once daily. - meloxicam 15 mg tablet Take 15 mg by mouth once daily. - coenzyme Q10 (COQ-10) 100 mg cap Take 100 mg by mouth once daily. - CALCIUM CARBONATE/VITAMIN D3 (CALCIUM 500 + D, D3, ORAL) Take by mouth once daily. - DOCOSAHEXANOIC ACID/EPA (FISH OIL ORAL) Take by mouth once daily. - pramipexole 0.5 mg tablet Take 0.5 mg by mouth once daily. - predniSONE 5 mg tablet Take 5 mg by mouth once daily. - COMPOUNDED PRESCRIPTION L-Thyroxine 150 mcg daily - cholestyramine (QUESTRAN) 4 gram packet Questran powder once a day - diphenoxylate-atropine (LOMOTIL) 2.5-0.025 mg per tablet Take 2 tablets by mouth four times daily as needed. - cholestyramine (QUESTRAN) 4 gram packet Take 1 packet per day - fluconazole (DIFLUCAN) 200 mg tablet take one tablet three days prior to procedure - nystatin (MYCOSTATIN) 100,000 unit/mL suspension Five days prior to procedure: take one teaspoon by mouth four times daily. No current facility-administered medications for this visit. ALLERGIES: ALLERGIES No Known Allergies PAST MEDICAL HISTORY: PAST MEDICAL HISTORY Diagnosis Date - [facility] disease (HCC) - Coronary arteriosclerosis - DVT (deep venous thrombosis) (HCC) - Hepatitis B - HTN (hypertension) - Hyperthyroidism - AKASH (obstructive sleep apnea) - Prostate cancer (HCC) - Pulmonary embolism (HCC) PAST SURGICAL HISTORY: PAST SURGICAL HISTORY Procedure Laterality Date - APPENDECTOMY - CARPAL TUNNEL Bilateral - COLONOSCOP W/ OR W/O BRSH SPEC Colonoscopy - CORONARY ARTERY BYPASS GRAFT HX 03/19/2018 - LEFT HEART CATH,PERCUTANEOUS 03/15/2018 - PAST SURGICAL HISTORY OF Prostate removed - PAST SURGICAL HISTORY OF Cyst r (more content not included)... Normal [facility] Remote CBCDIF (for [facility] use o nly)on 12-20-2020 Abs Baso 0.08 k/uL Normal <0.11 [facility] Abs [place] 0.55 k/uL Normal <0.87 [facility] Abs Neut 5.06 k/uL Normal 1.45-7.50 [facility] Absolute nRBC <0.01 Normal <0.01 [facility] Basophils/100 WBC (Bld) 1.0 % Normal [facility] DTYPE Auto Diff Normal [facility] Eosinophils (Bld) [#/Vol] 0.26 10*3/uL Normal <0.46 [facility] Eosinophils/100 WBC (Bld) 3.3 % Normal [facility] Erythrocyte distribution width (RBC) [Ratio] 12.2 % Normal 11.5-15.0 [facility] Hematocrit (Bld) [Volume fraction] 37.0 % Low 39.0-51.0 [facility] Hemoglobin (Bld) [Mass/Vol] 12.7 g/dL Low 13.0-17.0 [facility] Lymphocytes (Bld) [#/Vol] 1.86 10*3/uL Normal 1.00-4.00 [facility] Lymphocytes/100 WBC (Bld) 23.8 % Normal [facility] MCH 30.7 pG Normal 26.0-34.0 [facility] MCHC (RBC) [Mass/Vol] 34.3 g/dL Normal 30.5-36.0 [facility] MCV (RBC) [Entitic vol] 89.4 fL Normal 80.0-100.0 [facility] Monocytes/100 WBC (Bld) 7.0 % Normal [facility] Neutrophils/100 WBC (Bld) 64.9 % Normal [facility] NRBCs 0.0 /100 WBC Normal 0 [facility] Platelet mean volume (Bld) [Entitic vol] 11.9 fL Normal 9.0-12.7 [facility] Platelets (Bld) [#/Vol] 207 10*3/uL Normal 150-400 [facility] RBC (Bld) [#/Vol] 4.14 10*6/uL Low 4.20-6.00 [facility] WBC (Bld) [#/Vol] 7.81 10*3/uL Normal 3.70-11.00 [facility] CNPNon 12-19-2020 CNPN Telephone (HEMASA) DON ELKINS ([id number]) 1950 M Date Time Provider Department 12/19/20 CLAUDIO PARKER During your visit today, we recorded the following information about you: Marianna Haque RN 12/19/2020 2:08 PM Signed Orders for CBC, CMP, and Prothrombin Gene Mutation pended. Please review and approve. 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 - carbidopa-levodopa orally disintegrating (PARCOPA) 25-100 mg per disintegrating tablet Take 1 tablet by mouth twice daily. - citalopram (CELEXA) 20 mg tablet Take 20 mg by mouth once daily. - donepezil HCl (DONEPEZIL ORAL) Take 10 mg by mouth twice daily. - GABAPENTIN ORAL Take 800 mg by mouth as directed. - insulin glargine,hum.rec.anlog (LANTUS SOLOSTAR U-100 INSULIN SUBCUTANEOUS) Inject subcutaneously. - levothyroxine 100 mcg cap Take 150 mcg by mouth once daily. - memantine (NAMENDA) 10 mg tablet Take 10 mg by mouth twice daily. - METOPROLOL TARTRATE ORAL Take 25 mg by mouth. - fish,bora,flax oils-om3,6,9no1 (OMEGA 3-6-9) 1,200 mg cap Take by mouth. - ropinirole HCl (ROPINIROLE ORAL) Take 8 mg by mouth once daily. - tiZANidine HCl 4 mg capsule Take 4 mg by mouth twice daily. - cholestyramine (QUESTRAN) 4 gram packet Questran powder once a day - diphenoxylate-atropine (LOMOTIL) 2.5-0.025 mg per tablet Take 2 tablets by mouth four times daily as needed. - cholestyramine (QUESTRAN) 4 gram packet Take 1 packet per day - fluconazole (DIFLUCAN) 200 mg tablet take one tablet three days prior to procedure - nystatin (MYCOSTATIN) 100,000 unit/mL suspension Five days prior to procedure: take one teaspoon by mouth four times daily. - metFORMIN 500 mg tablet Take 500 mg by mouth twice daily with meals. - lisinopril 10 mg tablet Take 10 mg by mouth once daily. - simvastatin 20 mg tablet Take 20 mg by mouth daily at bedtime. - hydrocortisone 10 mg tablet Take 20 mg by mouth once daily. - fludrocortisone 0.1 mg tablet Take 0.1 mg by mouth once daily. - Aspirin 81 mg tab Take 81 mg by mouth. - Cholecalciferol, Vitamin D3, (VITAMIN D) 1,000 unit cap Take 1,000 Units by mouth once daily. - multivitamin tablet Take 1 tablet by mouth once daily. - Omeprazole 40 mg capsule Take 40 mg by mouth once daily. - meloxicam 15 mg tablet Take 15 mg by mouth once daily. - coenzyme Q10 (COQ-10) 100 mg cap Take 100 mg by mouth once daily. - CALCIUM CARBONATE/VITAMIN D3 (CALCIUM 500 + D, D3, ORAL) Take by mouth once daily. - DOCOSAHEXANOIC ACID/EPA (FISH OIL ORAL) Take by mouth once daily. - pramipexole 0.5 mg tablet Take 0.5 mg by mouth once daily. - predniSONE 5 mg tablet Take 5 mg by mouth once daily. - COMPOUNDED PRESCRIPTION L-Thyroxine 150 mcg daily Problem List As Of Date: 12/19/2020 (None) Encounter Status:Closed by MAYNOR WALLIS on 02/16/21 [facility] Visit (SP) Office (H EMA) DON ELKINS ([id number]) 1950 M Date Time Provider Department 11/24/20 11:15 AM CLAUDIO PARKER During your visit today, we recorded the following information about you: Temperature Pulse Respiration Blood pressure 97.4 degrees 70/minute 16/minute 165/88 Weight Height 112.1 kg 1.727 m Claudio Parker MD 11/24/2020 2:10 PM Signed PATIENT NAME: Don Elkins DATE: 11/24/2020 PRIMARY CARE PHYSICIAN: Dr. Sal Sabillon/Marj Demarco, REPLANTER OTHER PHYSICIANS: Dr. Wilson, Dr. Cortez, Dr. Arvizu ([facility] Neu[facility]) HPI: This is a 70 year old male with a history of pulmonary embolism, referred for evaluation of a hypercoagulable state. Apparently the patient was diagnosed with bilateral pulmonary emboli in February 2018 when he presented with atypical chest pain. Initial chest CTA 03/15/2018 revealed multiple bilateral pulmonary emboli. At the time of presentation the patient was also diagnosed with unstable angina. He was hospitalized and anticoagulated with IV heparin. In preparation for CABG he underwent placement of a temporary IVC filter. After recovering from his CABG his anticoagulation was changed to Coumadin. A follow-up chest CTA obtained 06/13/2018 revealed resolution of the pulmonary emboli, and the IVC filter was removed. Since then he remained on Coumadin and tolerated it well. The patient was seen by his PCP on 11/17/2020 for routine follow-up, at which time it was elected to discontinue the Coumadin and start aspirin 81 mg daily for thromboprophylaxis. At the time of diagnosis apparently the patient had no evidence of DVT. There were no obvious factors that triggered his pulmonary emboli. His family history is negative. For evaluation of a possible hypercoagulable state a battery of labs were obtained on 11/23/2020, and results are currently pending. Currently the patient feels well. He denies any chest pain, shortness of breath, or other pulmonary symptoms. No leg swelling or other suspicious systemic symptoms. No fevers, night sweats, or weight loss. On low-dose aspirin he denies any significant bruising or bleeding. MEDICATIONS: Current Outpatient Medications Medication Sig - atorvastatin (LIPITOR) 20 mg tablet Take 20 mg by mouth once daily. - carbidopa-levodopa orally disintegrating (PARCOPA) 25-100 mg per disintegrating tablet Take 1 tablet by mouth twice daily. - citalopram (CELEXA) 20 mg tablet Take 20 mg by mouth once daily. - donepezil HCl (DONEPEZIL ORAL) Take 10 mg by mouth twice daily. - GABAPENTIN ORAL Take 800 mg by mouth as directed. - insulin glargine,hum.rec.anlog (LANTUS SOLOSTAR U-100 INSULIN SUBCUTANEOUS) Inject subcutaneously. - levothyroxine 100 mcg cap Take 150 mcg by mouth once daily. - memantine (NAMENDA) 10 mg tablet Take 10 mg by mouth twice daily. - METOPROLOL TARTRATE ORAL Take 25 mg by mouth. - fish,bora,flax oils-om3,6,9no1 (OMEGA 3-6-9) 1,200 mg cap Take by mouth. - ropinirole HCl (ROPINIROLE ORAL) Take 8 mg by mouth once daily. - tiZANidine HCl 4 mg capsule Take 4 mg by mouth twice daily. - cholestyramine (QUESTRAN) 4 gram packet Questran powder once a day - diphenoxylate-atropine (LOMOTIL) 2.5-0.025 mg per tablet Take 2 tablets by mouth four times daily as needed. - cholestyramine (QUESTRAN) 4 gram packet Take 1 packet per day - fluconazole (DIFLUCAN) 200 mg tablet take one tablet three days prior to procedure - nystatin (MYCOSTATIN) 100,000 unit/mL suspension Five days prior to procedure: take one teaspoon by mouth four times daily. - metFORMIN 500 mg tablet Take 500 mg by mouth twice daily with meals. - lisinopril 10 mg tablet Take 10 mg by mouth once daily. - simvastatin 20 mg tablet Take 20 mg by mouth daily at bedtime. - hydrocortisone 10 mg tablet Take 20 mg by mouth once daily. - fludrocortisone 0.1 mg tablet Take 0.1 mg by mouth once daily. - Aspirin 81 mg tab Take 81 mg by mouth. - Cholecalciferol, Vitamin D3, (VITAMIN D) 1,000 unit cap Take 1,000 Units by mouth once daily. - multivitamin tablet Take 1 tablet by mouth once daily. - Omeprazole 40 mg capsule Take 40 mg by mouth once daily. - meloxicam 15 mg tablet Take 15 mg by mouth once daily. - coenzyme Q10 (COQ-10) 100 mg cap Take 100 mg by mouth once daily. - CALCIUM CARBONATE/VITAMIN D3 (CALCIUM 500 + D, D3, ORAL) Take by mouth once daily. - DOCOSAHEXANOIC ACID/EPA (FISH OIL ORAL) Take by mouth once daily. - pramipexole 0.5 mg tablet Take 0.5 mg by mouth once daily. - predniSONE 5 mg tablet Take 5 mg by mouth once daily. - COMPOUNDED PRESCRIPTION L-Thyroxine 150 mcg daily No current facility-administered medications for this visit. ALLERGIES: ALLERGIES No Known Allergies PAST MEDICAL HISTORY: PAST MEDICAL HISTORY Diagnosis Date - Brigida's disease (HCC) - Coronary arteriosclerosis - DVT (deep venous thrombosis) (HCC) (more content not included)... Normal [facility] Consent for Procedure/Surger yochun 11-15-2020 Consent for Procedure/Surgery [id number] Normal [facility] Ambulatory Clinical Summaryo n 11-14-2020 Ambulatory Clinical Summary {[id number] Normal [facility] Ambulatory Clinical Summary {[id number] Normal [facility] Gastroenterology Office/Clin ic Noteon 11-14-2020 Gastroenterology Office/Clinic Note Chief Complaint self ref- diarrhea HPI Staff This is a 70 year old male who presents today for a self referral for diarrhea. History of Present Illness The patient or their guardian verbally consented to allow [facility] to record this visit. The 70-year-old white male presents today for dysphagia and diarrhea. He was evaluated by Dr. Stone Arboleda in 2014 for dysphagia and history of colon polyps. He proceeded with an EGD and esophageal motility testing and was diagnosed with achalasia. The patient was referred to [facility], but he states he was not treated with pneumatic dilation at that time due to risk of perforation. The patient currently reports diarrhea that began after his cholecystectomy 7 or 8 years ago. He notes having 3 to 5 bowel movements daily and describes the appearance of his stool varying from pencil-like stool, to muddy water, to clear water. The patient also endorses bloating and abdominal gurgling. He has history of colon polyps. His last colonoscopy was in 2014 and he is due for another one. He is taking metformin 500 mg twice daily and denies that his metformin was increased recently. He is currently taking Coumadin for triple bypass surgery. His last cardiac procedure was 2 years ago and he denies having any recent strokes or stent placements. He denies any allergy to Cipro or Flagyl. Review of Systems PHQ Score Initial Depression Screen Score: 0 Constitutional: no fever, no chills, no sweats, no weakness Skin: no Jaundice, no rash, no lesions, no petechiae ENMT: no ear pain, no sore throat, no congestion, no hoarseness Respiratory: no shortness of breath, no cough, no orthopnea, no wheezing Cardiovascular: no chest pain, no palpitations, no edema Gastrointestinal: no nausea, no vomiting, positive for diarrhea, no constipation, no rectal bleeding, no GI bleeding, no abdominal pain, positive for dysphagia, positive for bloating, no heartburn Genitourinary: no dysuria, no hematuria, no discharge, no pain Musculoskeletal: no back pain, no trauma Neurologic: no numbness, no sleeping problems Additional ROS info: Except as noted in the above Review of Systems and in the History of Present Illness all other systems have been reviewed and are negative or noncontributory. Physical Exam Vitals & Measurements T: 36.5 ?C (Temporal Artery) HR: 80(Peripheral) RR: 16 BP: 136/87 HT: 176.0 cm HT: 176 cm WT: 111.8 kg WT: 111.8 kg BMI: 36.09 Constitutional: Appearance: well developed Skin: Inspection: no rashes, ulcers, icterus, or telangiectasias. Eyes: Conjunctivae/lids: normal conjunctivae and lids. ENMT: Hearing: within normal limits. Lips/Teeth/Gums: normal oral mucosa Neck: Neck: normal motion, central trachea Respiratory: Percussion: thorax normoresonant. Auscultation: normal breath sounds; no rubs, wheezes, rale or ronchi. Cardiovascular: Auscultation: normal rhythm, S1 and S2; no rubs, murmurs or gallop. Peripheral: no edema Gastrointestinal/Abdomen: Abdomen: normal consistency and bowel sounds; no tenderness or masses. Liver/Spleen: normal size and consistency, not palpable. Rectal: deferred Musculoskeletal: Gait/station: normal gait Assessment/Plan 1. Diarrhea (R19.7: Diarrhea, unspecified) This is likely bile-induced diarrhea. We will start the patient on a trial of Questran and rule out pancreatic insufficiency. We will proceed with a colonoscopy to rule out microscopic colitis and inflammatory bowel disease. His diarrhea can also be related to metformin and to small intestinal bacterial overgrowth. 2. 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 3. Personal history of colonic polyps (Z86.010: Personal history of colonic polyps) The patient is due for a colonoscopy. 4. Achalasia (K22.0: Achalasia of cardia) This was diagnosed in [address] Arboleda. He was referred to [facility] at that time, but pneumatic dilation was not done or recommended by [facility] as, according to the patient, they were concerned about possible perforation. The patient continued to have sporadic dysphagia. I will repeat an EGD for re-evaluation. 5. Small intestinal bacterial overgrowth (SIBO) (K63.89: Other specified diseases of intestine) The patient will start probiotics and antibiotics. ATTESTATION: Documentation services were performed by SOTO after patient consented to recording for virtual customer energy specialist and provider reviewed before signing. SOTO: Marcelina Lai Follow-up With When Contact Information JANICE VALENTIN, BHARGAVI Braun [facility] Within 2 weeks [facility] [address] [place] [address], [place] [address]- Additional Instructions: Patient Education Chronic Diarrhea Problem List/Past Medical History Ongoing Brigida disease BMI 35.0-35.9,adult Diabetes Frequency GERD Hematuria Hx of fpc use of blood thinners Hypertension Kidney stone Microscopic hematuria- with sy (more content not included)... Normal [facility] Comment on above: Result Comment: Elec tronically Signed By: Kade CAMACHO MD\.br\Date and Time Signed: 11/14/20 14:16 EDT\.br\Electronically Co-Signed By: Marcelina Lai\.br\Date and Time Co-Signed: 11/14/20 13:28 EDT Patient Educationon 11-15-19 Patient Education Gastroenterology Chronic Diarrhea Diarrhea is a condition in which a person passes frequent loose and watery stools. It can cause you to feel weak and dehydrated. Dehydration can make you tired and thirsty. It can also cause a dry mouth, decreased urination, and dark yellow urine. Diarrhea is a sign of another underlying problem, such as: ? Infection. ? Medication side effects. ? Dietary intolerance, such as lactose intolerance. ? Conditions such as celiac disease, irritable bowel syndrome (IBS), or inflammatory bowel disease (IBD). In most cases, diarrhea lasts 2?3 days. Diarrhea that lasts longer than 4 weeks is called long-lasting (chronic) diarrhea. It is important that you treat your diarrhea as told by your health care provider. Follow these instructions at home: Follow these recommendations as told by your health care provider. Eating and drinking ? Take an oral rehydration solution (ORS). This is a drink that is designed to keep you hydrated. It can be found at pharmacies and retail stores. ? Drink clear fluids, such as water, ice chips, diluted fruit juice, and low-calorie sports drinks. ? Follow the diet recommended by your health care provider. You may need to avoid foods that trigger diarrhea for you. ? Avoid foods and beverages that contain a lot of sugar or caffeine. ? Avoid alcohol. ? Avoid spicy or fatty foods. General instructions ? Drink enough fluid to keep your urine clear or pale yellow. ? Wash your hands often and after each diarrhea episode. If soap and water are not available, use hand warp hand. ? Make sure that all people in your household wash their hands well and often. ? Take [id number] and prescription medicines only as told by your health care provider. ? If you were prescribed an antibiotic medicine, take it as told by your health care provider. Do not stop taking the antibiotic even if you start to feel better. ? Rest at home while you recover. ? Watch your condition for any changes. ? Take a warm bath to relieve any burning or pain from frequent diarrhea episodes. ? Keep all follow-up visits as told by your health care provider. This is important. Contact a health care provider if: ? You have a fever. ? Your diarrhea gets worse or does not get better. ? You have new symptoms. ? You cannot drink fluids without vomiting. ? You feel light-headed or dizzy. ? You have a headache. ? You have muscle cramps. ? You have severe pain in the rectum. Get help right away if: ? You have persistent vomiting. ? You have chest pain. ? You feel extremely weak or you faint. ? You have bloody or black stools, or stools that look like tar. ? You have severe pain, cramping, or bloating in your abdomen, or pain that stays in one place. ? You have trouble breathing or you are breathing very quickly. ? Your heart is beating very quickly. ? Your skin feels cold and clammy. ? You feel confused. ? You have a severe headache. ? You have signs of dehydration, such as: ? Dark urine, very little urine, or no urine. ? Cracked lips. ? Dry mouth. ? Sunken eyes. ? Sleepiness. ? Weakness. Summary ? Chronic diarrhea is a condition in which a person passes frequent loose and watery stools for more than 4 weeks. ? Diarrhea is a sign of another underlying problem. ? Drink enough fluid to keep your urine clear or pale yellow to avoid dehydration. ? Wash your hands often and after each diarrhea episode. If soap and water are not available, use hand warp hand. ? It is important that you treat your diarrhea as told by your health care provider. This information is not intended to replace advice given to you by your health care provider. Make sure you discuss any questions you have with your health care provider. Document Released: 07/25/2004 Document Revised: 07/31/2018 Document Reviewed: 03/24/2017 [employer] Patient Education ? 2019 [employer]. Normal [facility] Complete Blood Count Auto Di ffon 09-16-2020 Basophils (Bld) [#/Vol] 0.1 10*3/uL Normal 0.0-0.2 [facility] Comment on above: Result Comment: PERF ORMED BY: [place] [address] PATHOLOGIST DIGITAL MARKETING CONSULTANT TOBY GRACIA M.D. Performed By: #### B 2 GLYPROT XOCHITL, FACTOR II DNA, HOMOCYS PL, FACV LEIDM, PROCF, LIPA, LUPANTCOAG, PROT S FUN, METH, CARDIO GMA, AT3 DEF PROFILE #### [facility] , #### [id number], CBC, PHOS, BMP, FE PRO, MG #### [facility] [address] Basophils/100 WBC (Bld) 0.8 % Normal . [facility] Comment on above: Performed By: #### B 2 GLYPROT XOCHITL, FACTOR II DNA, HOMOCYS PL, FACV LEIDM, PROCF, LIPA, LUPANTCOAG, PROT S FUN, METH, CARDIO GMA, AT3 DEF PROFILE #### [facility] , #### [id number], CBC, PHOS, BMP, FE PRO, MG #### [address] Eosinophils (Bld) [#/Vol] 0.3 10*3/uL Normal 0.0-0.45 [facility] Comment on above: Performed By: #### B 2 GLYPROT XOCHITL, FACTOR II DNA, HOMOCYS PL, FACV LEIDM, PROCF, LIPA, LUPANTCOAG, PROT S FUN, METH, CARDIO GMA, AT3 DEF PROFILE #### [facility] , #### [id number], CBC, PHOS, BMP, FE PRO, MG #### [address] Eosinophils/100 WBC (Bld) 3.3 % Normal . [facility] Comment on above: Performed By: #### B 2 GLYPROT XOCHITL, FACTOR II DNA, HOMOCYS PL, FACV LEIDM, PROCF, LIPA, LUPANTCOAG, PROT S FUN, METH, CARDIO GMA, AT3 DEF PROFILE #### [facility] , #### [id number], CBC, PHOS, BMP, FE PRO, MG #### [address] Erythrocyte distribution width (RBC) [Ratio] 13.2 % Normal 12.0-14.8 [facility] Comment on above: Performed By: #### B 2 GLYPROT XOCHITL, FACTOR II DNA, HOMOCYS PL, FACV LEIDM, PROCF, LIPA, LUPANTCOAG, PROT S FUN, METH, CARDIO GMA, AT3 DEF PROFILE #### [facility] , #### [id number], CBC, PHOS, BMP, FE PRO, MG #### [address] Hematocrit (Bld) [Volume fraction] 36.9 % Low 38.8-50.0 [facility] Comment on above: Performed By: #### B 2 GLYPROT XOCHTIL, FACTOR II DNA, HOMOCYS PL, FACV LEIDM, PROCF, LIPA, LUPANTCOAG, PROT S FUN, METH, CARDIO GMA, AT3 DEF PROFILE #### [facility] , #### [id number], CBC, PHOS, BMP, FE PRO, MG #### [address] Hemoglobin (Bld) [Mass/Vol] 12.5 g/dL Low 13.0-17.0 [facility] Comment on above: Performed By: #### B 2 GLYPROT XOCHITL, FACTOR II DNA, HOMOCYS PL, FACV LEIDM, PROCF, LIPA, LUPANTCOAG, PROT S FUN, METH, CARDIO GMA, AT3 DEF PROFILE #### [facility] , #### [id number], CBC, PHOS, BMP, FE PRO, MG #### [address] Lymphocytes (Bld) [#/Vol] 2.3 10*3/uL Normal 1.00-4.8 [facility] Comment on above: Performed By: #### B 2 GLYPROT XOCHITL, FACTOR II DNA, HOMOCYS PL, FACV LEIDM, PROCF, LIPA, LUPANTCOAG, PROT S FUN, METH, CARDIO GMA, AT3 DEF PROFILE #### [facility] , #### [id number], CBC, PHOS, BMP, FE PRO, MG #### [address] Lymphocytes/100 WBC (Bld) 24.6 % Normal . [facility] Comment on above: Performed By: #### B 2 GLYPROT XOCHITL, FACTOR II DNA, HOMOCYS PL, FACV LEIDM, PROCF, LIPA, LUPANTCOAG, PROT S FUN, METH, CARDIO GMA, AT3 DEF PROFILE #### [facility] , #### [id number], CBC, PHOS, BMP, FE PRO, MG #### [address] MCH (RBC) [Entitic mass] 30.7 pg Normal 27.5-35.2 [facility] Comment on above: Performed By: #### B 2 GLYPROT XOCHITL, FACTOR II DNA, HOMOCYS PL, FACV LEIDM, PROCF, LIPA, LUPANTCOAG, PROT S FUN, METH, CARDIO GMA, AT3 DEF PROFILE #### [facility] , #### [id number], CBC, PHOS, BMP, FE PRO, MG #### [facility] [address] [place] [address] MCV (RBC) [Entitic vol] 90.7 fL Normal 83.5-101 [facility] Comment on above: Performed By: #### B 2 GLYPROT XOCHITL, FACTOR II DNA, HOMOCYS PL, FACV LEIDM, PROCF, LIPA, LUPANTCOAG, PROT S FUN, METH, CARDIO GMA, AT3 DEF PROFILE #### [facility] , #### [id number], CBC, PHOS, BMP, FE PRO, MG #### [address] Mean Corpuscular HGB Conc 33.8 g/dL Normal 32.5-35.6 [facility] Comment on above: Performed By: #### B 2 GLYPROT XOCHITL, FACTOR II DNA, HOMOCYS PL, FACV LEIDM, PROCF, LIPA, LUPANTCOAG, PROT S FUN, METH, CARDIO GMA, AT3 DEF PROFILE #### [facility] , #### [id number], CBC, PHOS, BMP, FE PRO, MG #### [facility] [address] [place] [address] Monocytes (Bld) [#/Vol] 0.7 10*3/uL Normal 0.0-0.8 [facility] Comment on above: Performed By: #### B 2 GLYPROT XOCHITL, FACTOR II DNA, HOMOCYS PL, FACV LEIDM, PROCF, LIPA, LUPANTCOAG, PROT S FUN, METH, CARDIO GMA, AT3 DEF PROFILE #### [facility] , #### [id number], CBC, PHOS, BMP, FE PRO, MG #### [facility] [address] [place] [address] [place] Monocytes/100 WBC (Bld) 7.1 % Normal . [facility] Comment on above: Performed By: #### B 2 GLYPROT XOCHITL, FACTOR II DNA, HOMOCYS PL, FACV LEIDM, PROCF, LIPA, LUPANTCOAG, PROT S FUN, METH, CARDIO GMA, AT3 DEF PROFILE #### [facility] , #### [id number], CBC, PHOS, BMP, FE PRO, MG #### [place] [address] [place] Neutrophils (Bld) [#/Vol] 6.0 10*3/uL Normal 1.8-7.7 [facility] Comment on above: Performed By: #### B 2 GLYPROT XOCHITL, FACTOR II DNA, HOMOCYS PL, FACV LEIDM, PROCF, LIPA, LUPANTCOAG, PROT S FUN, METH, CARDIO GMA, AT3 DEF PROFILE #### [facility] , #### [id number], CBC, PHOS, BMP, FE PRO, MG #### [address] Neutrophils/100 WBC (Bld) 64.2 % Normal . [facility] Comment on above: Performed By: #### B 2 GLYPROT XOCHITL, FACTOR II DNA, HOMOCYS PL, FACV LEIDM, PROCF, LIPA, LUPANTCOAG, PROT S FUN, METH, CARDIO GMA, AT3 DEF PROFILE #### [facility] , #### [id number], CBC, PHOS, BMP, FE PRO, MG #### [place] [address] [place] Nucleated RBC/100 WBC (Bld) [Ratio] 0.3 % Normal 0-0.5 [facility] Comment on above: Performed By: #### B 2 GLYPROT XOCHITL, FACTOR II DNA, HOMOCYS PL, FACV LEIDM, PROCF, LIPA, LUPANTCOAG, PROT S FUN, METH, CARDIO GMA, AT3 DEF PROFILE #### [facility] , #### [id number], CBC, PHOS, BMP, FE PRO, MG #### [address] Platelet mean volume (Bld) [Entitic vol] 10.5 fL High 6.6-10.1 [facility] Comment on above: Performed By: #### B 2 GLYPROT XOCHITL, FACTOR II DNA, HOMOCYS PL, FACV LEIDM, PROCF, LIPA, LUPANTCOAG, PROT S FUN, METH, CARDIO GMA, AT3 DEF PROFILE #### [facility] , #### [id number], CBC, PHOS, BMP, FE PRO, MG #### [address] Platelets (Bld) [#/Vol] 232 10*3/uL Normal 150-450 [facility] Comment on above: Performed By: #### B 2 GLYPROT XOCHITL, FACTOR II DNA, HOMOCYS PL, FACV LEIDM, PROCF, LIPA, LUPANTCOAG, PROT S FUN, METH, CARDIO GMA, AT3 DEF PROFILE #### [facility] , #### [id number], CBC, PHOS, BMP, FE PRO, MG #### [address] RBC (Bld) [#/Vol] 4.07 10*6/uL Normal 3.90-5.[address] [facility] Comment on above: Performed By: #### B 2 GLYPROT XOCHITL, FACTOR II DNA, HOMOCYS PL, FACV LEIDM, PROCF, LIPA, LUPANTCOAG, PROT S FUN, METH, CARDIO GMA, AT3 DEF PROFILE #### [facility] , #### [id number], CBC, PHOS, BMP, FE PRO, MG #### [place] [address] [place] WBC (Bld) [#/Vol] 9.4 10*3/uL Normal 4.5-11.0 [facility] Comment on above: Performed By: #### B 2 GLYPROT XOCHITL, FACTOR II DNA, HOMOCYS PL, FACV LEIDM, PROCF, LIPA, LUPANTCOAG, PROT S FUN, METH, CARDIO GMA, AT3 DEF PROFILE #### [facility] , #### [id number], CBC, PHOS, BMP, FE PRO, MG #### [facility] [address] Comprehensive Metabolic Pane harmony 09-16-2020 Albumin [Mass/Vol] 2.9 g/dL Low 3.2-5.5 [facility] Comment on above: Performed By: #### B 2 GLYPROT XOCHITL, FACTOR II DNA, HOMOCYS PL, FACV LEIDM, PROCF, LIPA, LUPANTCOAG, PROT S FUN, METH, CARDIO GMA, AT3 DEF PROFILE #### [facility] , #### [id number], CBC, PHOS, BMP, FE PRO, MG #### [facility] [address] Albumin/Globulin [Mass ratio] 1.3 {ratio} Normal [facility] Comment on above: Performed By: #### B 2 GLYPROT XOCHITL, FACTOR II DNA, HOMOCYS PL, FACV LEIDM, PROCF, LIPA, LUPANTCOAG, PROT S FUN, METH, CARDIO GMA, AT3 DEF PROFILE #### [facility] , #### [id number], CBC, PHOS, BMP, FE PRO, MG #### [facility] [address] ALP [Catalytic activity/Vol] 39 U/L Normal 32-92 [facility] Comment on above: Performed By: #### B 2 GLYPROT XOCHITL, FACTOR II DNA, HOMOCYS PL, FACV LEIDM, PROCF, LIPA, LUPANTCOAG, PROT S FUN, METH, CARDIO GMA, AT3 DEF PROFILE #### [facility] , #### [id number], CBC, PHOS, BMP, FE PRO, MG #### [facility] [address] [place] [address] ALT [Catalytic activity/Vol] 71 U/L High 10-60 [facility] Comment on above: Performed By: #### B 2 GLYPROT XOCHITL, FACTOR II DNA, HOMOCYS PL, FACV LEIDM, PROCF, LIPA, LUPANTCOAG, PROT S FUN, METH, CARDIO GMA, AT3 DEF PROFILE #### [facility] , #### [id number], CBC, PHOS, BMP, FE PRO, MG #### [address] AST [Catalytic activity/Vol] 29 U/L Normal 10-42 [facility] Comment on above: Performed By: #### B 2 GLYPROT XOCHITL, FACTOR II DNA, HOMOCYS PL, FACV LEIDM, PROCF, LIPA, LUPANTCOAG, PROT S FUN, METH, CARDIO GMA, AT3 DEF PROFILE #### [facility] , #### [id number], CBC, PHOS, BMP, FE PRO, MG #### [address] Bilirubin [Mass/Vol] 1.2 mg/dL Normal 0.3-1.2 [facility] Comment on above: Performed By: #### B 2 GLYPROT XOCHITL, FACTOR II DNA, HOMOCYS PL, FACV LEIDM, PROCF, LIPA, LUPANTCOAG, PROT S FUN, METH, CARDIO GMA, AT3 DEF PROFILE #### [facility] , #### [id number], CBC, PHOS, BMP, FE PRO, MG #### [address] Calcium [Mass/Vol] 8.1 mg/dL Low 8.2-10.2 [facility] Comment on above: Performed By: #### B 2 GLYPROT XOCHITL, FACTOR II DNA, HOMOCYS PL, FACV LEIDM, PROCF, LIPA, LUPANTCOAG, PROT S FUN, METH, CARDIO GMA, AT3 DEF PROFILE #### [facility] , #### [id number], CBC, PHOS, BMP, FE PRO, MG #### [address] Chloride [Moles/Vol] 107 mmol/L Normal 95-114 [facility] Comment on above: Performed By: #### B 2 GLYPROT XOCHITL, FACTOR II DNA, HOMOCYS PL, FACV LEIDM, PROCF, LIPA, LUPANTCOAG, PROT S FUN, METH, CARDIO GMA, AT3 DEF PROFILE #### [facility] , #### [id number], CBC, PHOS, BMP, FE PRO, MG #### [address] CO2 [Moles/Vol] 24.3 mmol/L Normal 22.0-30.0 [facility] Comment on above: Performed By: #### B 2 GLYPROT XOCHITL, FACTOR II DNA, HOMOCYS PL, FACV LEIDM, PROCF, LIPA, LUPANTCOAG, PROT S FUN, METH, CARDIO GMA, AT3 DEF PROFILE #### [facility] , #### [id number], CBC, PHOS, BMP, FE PRO, MG #### [address] Creatinine [Mass/Vol] 1.40 mg/dL High 0.64-1.27 [facility] Comment on above: Performed By: #### B 2 GLYPROT XOCHITL, FACTOR II DNA, HOMOCYS PL, FACV LEIDM, PROCF, LIPA, LUPANTCOAG, PROT S FUN, METH, CARDIO GMA, AT3 DEF PROFILE #### [facility] , #### [id number], CBC, PHOS, BMP, FE PRO, MG #### [address] Creatinine Clr Calc Pharmacy 59.28 Normal [facility] Comment on above: Result Comment: PERF ORMED BY: [place] [address] PATHOLOGIST DIGITAL MARKETING CONSULTANT TOBY GRACIA M.D. Performed By: #### B 2 GLYPROT XOCHITL, FACTOR II DNA, HOMOCYS PL, FACV LEIDM, PROCF, LIPA, LUPANTCOAG, PROT S FUN, METH, CARDIO GMA, AT3 DEF PROFILE #### [facility] , #### [id number], CBC, PHOS, BMP, FE PRO, MG #### [facility] [address] [place] [address] Estimated GFR ( Gabriela > 60 [facility] Comment on above: Result Comment: GFR estimated reference range: According to KDOQI guidelines, <60 ml/min/1.73m2 is sufficient to diagnose a patient with chronic kidney disease. Performed By: #### B 2 GLYPROT XOCHITL, FACTOR II DNA, HOMOCYS PL, FACV LEIDM, PROCF, LIPA, LUPANTCOAG, PROT S FUN, METH, CARDIO GMA, AT3 DEF PROFILE #### [facility] , #### [id number], CBC, PHOS, BMP, FE PRO, MG #### [facility] [address] [place] [address] Estimated GFR (Non- Am 50 [facility] Comment on above: Performed By: #### B 2 GLYPROT XOCHITL, FACTOR II DNA, HOMOCYS PL, FACV LEIDM, PROCF, LIPA, LUPANTCOAG, PROT S FUN, METH, CARDIO GMA, AT3 DEF PROFILE #### [facility] , #### [id number], CBC, PHOS, BMP, FE PRO, MG #### [facility] [address] [place] [address] Globulin (S) [Mass/Vol] 2.3 g/dL [facility] Comment on above: Performed By: #### B 2 GLYPROT XOCHITL, FACTOR II DNA, HOMOCYS PL, FACV LEIDM, PROCF, LIPA, LUPANTCOAG, PROT S FUN, METH, CARDIO GMA, AT3 DEF PROFILE #### [facility] , #### [id number], CBC, PHOS, BMP, FE PRO, MG #### [facility] [address] Glucose [Mass/Vol] 202 mg/dL High 70-100 [facility] Comment on above: Result Comment: [facility] Glucose Reference Range is dependent on time and content of last meal. Glucose of more than 200 mg/dL in a nonstressed, ambulatory subject supports the diagnosis of Diabetes Mellitus. ADA recommended reference range Performed By: #### B 2 GLYPROT XOCHITL, FACTOR II DNA, HOMOCYS PL, FACV LEIDM, PROCF, LIPA, LUPANTCOAG, PROT S FUN, METH, CARDIO GMA, AT3 DEF PROFILE #### [facility] , #### [id number], CBC, PHOS, BMP, FE PRO, MG #### [facility] [address] [place] [address] Potassium [Moles/Vol] 4.5 mmol/L Normal 3.5-5.1 [facility] Comment on above: Performed By: #### B 2 GLYPROT XOCHITL, FACTOR II DNA, HOMOCYS PL, FACV LEIDM, PROCF, LIPA, LUPANTCOAG, PROT S FUN, METH, CARDIO GMA, AT3 DEF PROFILE #### [facility] , #### [id number], CBC, PHOS, BMP, FE PRO, MG #### [facility] [address] [place] [address] Protein [Mass/Vol] 5.2 g/dL Low 6.1-7.9 [facility] Comment on above: Performed By: #### B 2 GLYPROT XOCHITL, FACTOR II DNA, HOMOCYS PL, FACV LEIDM, PROCF, LIPA, LUPANTCOAG, PROT S FUN, METH, CARDIO GMA, AT3 DEF PROFILE #### [facility] , #### [id number], CBC, PHOS, BMP, FE PRO, MG #### [facility] [address] [id number] [facility] Sodium [Moles/Vol] 137 mmol/L Normal 136-146 [facility] Comment on above: Performed By: #### B 2 GLYPROT XOCHITL, FACTOR II DNA, HOMOCYS PL, FACV LEIDM, PROCF, LIPA, LUPANTCOAG, PROT S FUN, METH, CARDIO GMA, AT3 DEF PROFILE #### [facility] , #### [id number], CBC, PHOS, BMP, FE PRO, MG #### [facility] [address] [place] [address] Urea nitrogen [Mass/Vol] 15 mg/dL Normal 9-23 [facility] Comment on above: Performed By: #### B 2 GLYPROT XOCHITL, FACTOR II DNA, HOMOCYS PL, FACV LEIDM, PROCF, LIPA, LUPANTCOAG, PROT S FUN, METH, CARDIO GMA, AT3 DEF PROFILE #### [facility] , #### [id number], CBC, PHOS, BMP, FE PRO, MG #### [facility] [address] [place] [address] Glucose Poct Glucometerson 0 09-16-2020 Commemt1 Glu2: Cleaned Meter [facility] Comment on above: Result Comment: PERF ORMED BY: [address] [place] [address] PATHOLOGIST DIGITAL MARKETING CONSULTANT TOBY GRACIA M.D. Performed By: #### B 2 GLYPROT XOCHITL, FACTOR II DNA, HOMOCYS PL, FACV LEIDM, PROCF, LIPA, LUPANTCOAG, PROT S FUN, METH, CARDIO GMA, AT3 DEF PROFILE #### [facility] , #### [id number], CBC, PHOS, BMP, FE PRO, MG #### [facility] [address] [place], [place] [id number] [place] Glucose [Mass/Vol] 184 mg/dL [facility] Comment on above: Result Comment: [facility] Glucose Reference Range is dependent on time and content of last meal. Glucose of more than 200 mg/dL in a nonstressed, ambulatory subject supports the diagnosis of Diabetes Mellitus. Performed By: #### B 2 GLYPROT XOCHITL, FACTOR II DNA, HOMOCYS PL, FACV LEIDM, PROCF, LIPA, LUPANTCOAG, PROT S FUN, METH, CARDIO GMA, AT3 DEF PROFILE #### [facility] , #### [id number], CBC, PHOS, BMP, FE PRO, MG #### [facility] [address] [place] [address] Blood Cultureon 09-15-2020 Bacteria identified Cx Nom (Bld) NO GROWTH 5 DAYS PERFORMED BY: [place] [address] PATHOLOGIST DIGITAL MARKETING CONSULTANT TOBY GRACIA M.D. Normal [facility] Comment on above: Performed By: #### B 2 GLYPROT XOCHITL, FACTOR II DNA, HOMOCYS PL, FACV LEIDM, PROCF, LIPA, LUPANTCOAG, PROT S FUN, METH, CARDIO GMA, AT3 DEF PROFILE #### [facility] , #### [id number], CBC, PHOS, BMP, FE PRO, MG #### [address] Complete Blood Count Auto Di ffon 09-15-2020 Basophils (Bld) [#/Vol] 0.1 10*3/uL Normal 0.0-0.2 [facility] Comment on above: Result Comment: PERF ORMED BY: [place] [address] PATHOLOGIST DIGITAL MARKETING CONSULTANT TOBY GRACIA M.D. Performed By: #### B 2 GLYPROT XOCHITL, FACTOR II DNA, HOMOCYS PL, FACV LEIDM, PROCF, LIPA, LUPANTCOAG, PROT S FUN, METH, CARDIO GMA, AT3 DEF PROFILE #### [facility] , #### [id number], CBC, PHOS, BMP, FE PRO, MG #### [facility] [address] Basophils/100 WBC (Bld) 0.7 % Normal . [facility] Comment on above: Performed By: #### B 2 GLYPROT XOCHITL, FACTOR II DNA, HOMOCYS PL, FACV LEIDM, PROCF, LIPA, LUPANTCOAG, PROT S FUN, METH, CARDIO GMA, AT3 DEF PROFILE #### [facility] , #### [id number], CBC, PHOS, BMP, FE PRO, MG #### [address] Eosinophils (Bld) [#/Vol] 0.0 10*3/uL Normal 0.0-0.45 [facility] Comment on above: Performed By: #### B 2 GLYPROT XOCHITL, FACTOR II DNA, HOMOCYS PL, FACV LEIDM, PROCF, LIPA, LUPANTCOAG, PROT S FUN, METH, CARDIO GMA, AT3 DEF PROFILE #### [facility] , #### [id number], CBC, PHOS, BMP, FE PRO, MG #### [address] Eosinophils/100 WBC (Bld) 0.2 % Normal . [facility] Comment on above: Performed By: #### B 2 GLYPROT XOCHITL, FACTOR II DNA, HOMOCYS PL, FACV LEIDM, PROCF, LIPA, LUPANTCOAG, PROT S FUN, METH, CARDIO GMA, AT3 DEF PROFILE #### [facility] , #### [id number], CBC, PHOS, BMP, FE PRO, MG #### [address] Erythrocyte distribution width (RBC) [Ratio] 13.2 % Normal 12.0-14.8 [facility] Comment on above: Performed By: #### B 2 GLYPROT XOCHITL, FACTOR II DNA, HOMOCYS PL, FACV LEIDM, PROCF, LIPA, LUPANTCOAG, PROT S FUN, METH, CARDIO GMA, AT3 DEF PROFILE #### [facility] , #### [id number], CBC, PHOS, BMP, FE PRO, MG #### [address] Hematocrit (Bld) [Volume fraction] 37.0 % Low 38.8-50.0 [facility] Comment on above: Performed By: #### B 2 GLYPROT XOCHITL, FACTOR II DNA, HOMOCYS PL, FACV LEIDM, PROCF, LIPA, LUPANTCOAG, PROT S FUN, METH, CARDIO GMA, AT3 DEF PROFILE #### [facility] , #### [id number], CBC, PHOS, BMP, FE PRO, MG #### [address] Hemoglobin (Bld) [Mass/Vol] 12.8 g/dL Low 13.0-17.0 [facility] Comment on above: Performed By: #### B 2 GLYPROT XOCHITL, FACTOR II DNA, HOMOCYS PL, FACV LEIDM, PROCF, LIPA, LUPANTCOAG, PROT S FUN, METH, CARDIO GMA, AT3 DEF PROFILE #### [facility] , #### [id number], CBC, PHOS, BMP, FE PRO, MG #### [address] Lymphocytes (Bld) [#/Vol] 1.3 10*3/uL Normal 1.00-4.8 [facility] Comment on above: Performed By: #### B 2 GLYPROT XOCHITL, FACTOR II DNA, HOMOCYS PL, FACV LEIDM, PROCF, LIPA, LUPANTCOAG, PROT S FUN, METH, CARDIO GMA, AT3 DEF PROFILE #### [facility] , #### [id number], CBC, PHOS, BMP, FE PRO, MG #### [address] Lymphocytes/100 WBC (Bld) 10.6 % Normal . [facility] Comment on above: Performed By: #### B 2 GLYPROT XOCHITL, FACTOR II DNA, HOMOCYS PL, FACV LEIDM, PROCF, LIPA, LUPANTCOAG, PROT S FUN, METH, CARDIO GMA, AT3 DEF PROFILE #### [facility] , #### [id number], CBC, PHOS, BMP, FE PRO, MG #### [address] MCH (RBC) [Entitic mass] 31.8 pg Normal 27.5-35.2 [facility] Comment on above: Performed By: #### B 2 GLYPROT XOCHITL, FACTOR II DNA, HOMOCYS PL, FACV LEIDM, PROCF, LIPA, LUPANTCOAG, PROT S FUN, METH, CARDIO GMA, AT3 DEF PROFILE #### [facility] , #### [id number], CBC, PHOS, BMP, FE PRO, MG #### [address] MCV (RBC) [Entitic vol] 91.7 fL Normal 83.5-101 [facility] Comment on above: Performed By: #### B 2 GLYPROT XOCHITL, FACTOR II DNA, HOMOCYS PL, FACV LEIDM, PROCF, LIPA, LUPANTCOAG, PROT S FUN, METH, CARDIO GMA, AT3 DEF PROFILE #### [facility] , #### [id number], CBC, PHOS, BMP, FE PRO, MG #### [address] Mean Corpuscular HGB Conc 34.7 g/dL Normal 32.5-35.6 [facility] Comment on above: Performed By: #### B 2 GLYPROT XOCHITL, FACTOR II DNA, HOMOCYS PL, FACV LEIDM, PROCF, LIPA, LUPANTCOAG, PROT S FUN, METH, CARDIO GMA, AT3 DEF PROFILE #### [facility] , #### [id number], CBC, PHOS, BMP, FE PRO, MG #### [facility] [address] Monocytes (Bld) [#/Vol] 0.7 10*3/uL Normal 0.0-0.8 [facility] Comment on above: Performed By: #### B 2 GLYPROT XOCHITL, FACTOR II DNA, HOMOCYS PL, FACV LEIDM, PROCF, LIPA, LUPANTCOAG, PROT S FUN, METH, CARDIO GMA, AT3 DEF PROFILE #### [facility] , #### [id number], CBC, PHOS, BMP, FE PRO, MG #### [facility] [address] [place] [address] [place] Monocytes/100 WBC (Bld) 5.6 % Normal . [facility] Comment on above: Performed By: #### B 2 GLYPROT XOCHITL, FACTOR II DNA, HOMOCYS PL, FACV LEIDM, PROCF, LIPA, LUPANTCOAG, PROT S FUN, METH, CARDIO GMA, AT3 DEF PROFILE #### [facility] , #### [id number], CBC, PHOS, BMP, FE PRO, MG #### [place] [address] [place] Neutrophils (Bld) [#/Vol] 10.2 10*3/uL High 1.8-7.7 [facility] Comment on above: Performed By: #### B 2 GLYPROT XOCHITL, FACTOR II DNA, HOMOCYS PL, FACV LEIDM, PROCF, LIPA, LUPANTCOAG, PROT S FUN, METH, CARDIO GMA, AT3 DEF PROFILE #### [facility] , #### [id number], CBC, PHOS, BMP, FE PRO, MG #### [place] [address] [place] Neutrophils/100 WBC (Bld) 82.9 % Normal . [facility] Comment on above: Performed By: #### B 2 GLYPROT XOCHITL, FACTOR II DNA, HOMOCYS PL, FACV LEIDM, PROCF, LIPA, LUPANTCOAG, PROT S FUN, METH, CARDIO GMA, AT3 DEF PROFILE #### [facility] , #### [id number], CBC, PHOS, BMP, FE PRO, MG #### [facility] [address] [place] [address] Nucleated RBC/100 WBC (Bld) [Ratio] 0.1 % Normal 0-0.5 [facility] Comment on above: Performed By: #### B 2 GLYPROT XOCHITL, FACTOR II DNA, HOMOCYS PL, FACV LEIDM, PROCF, LIPA, LUPANTCOAG, PROT S FUN, METH, CARDIO GMA, AT3 DEF PROFILE #### [facility] , #### [id number], CBC, PHOS, BMP, FE PRO, MG #### [address] Platelet mean volume (Bld) [Entitic vol] 10.2 fL High 6.6-10.1 [facility] Comment on above: Performed By: #### B 2 GLYPROT XOCHITL, FACTOR II DNA, HOMOCYS PL, FACV LEIDM, PROCF, LIPA, LUPANTCOAG, PROT S FUN, METH, CARDIO GMA, AT3 DEF PROFILE #### [facility] , #### [id number], CBC, PHOS, BMP, FE PRO, MG #### [address] Platelets (Bld) [#/Vol] 251 10*3/uL Normal 150-450 [facility] Comment on above: Performed By: #### B 2 GLYPROT XOCHITL, FACTOR II DNA, HOMOCYS PL, FACV LEIDM, PROCF, LIPA, LUPANTCOAG, PROT S FUN, METH, CARDIO GMA, AT3 DEF PROFILE #### [facility] , #### [id number], CBC, PHOS, BMP, FE PRO, MG #### [address] RBC (Bld) [#/Vol] 4.04 10*6/uL Normal 3.90-5.[address] [facility] Comment on above: Performed By: #### B 2 GLYPROT XOCHITL, FACTOR II DNA, HOMOCYS PL, FACV LEIDM, PROCF, LIPA, LUPANTCOAG, PROT S FUN, METH, CARDIO GMA, AT3 DEF PROFILE #### [facility] , #### [id number], CBC, PHOS, BMP, FE PRO, MG #### [facility] [address] WBC (Bld) [#/Vol] 12.3 10*3/uL High 4.5-11.[address] [facility] Comment on above: Performed By: #### B 2 GLYPROT XOCHITL, FACTOR II DNA, HOMOCYS PL, FACV LEIDM, PROCF, LIPA, LUPANTCOAG, PROT S FUN, METH, CARDIO GMA, AT3 DEF PROFILE #### [facility] , #### [id number], CBC, PHOS, BMP, FE PRO, MG #### [facility] [address] [place] [address] Comprehensive Metabolic Pane harmony 09-15-2020 Albumin [Mass/Vol] 2.7 g/dL Low 3.2-5.5 [facility] Comment on above: Performed By: #### B 2 GLYPROT XOCHITL, FACTOR II DNA, HOMOCYS PL, FACV LEIDM, PROCF, LIPA, LUPANTCOAG, PROT S FUN, METH, CARDIO GMA, AT3 DEF PROFILE #### [facility] , #### [id number], CBC, PHOS, BMP, FE PRO, MG #### [facility] [address] [place] [address] Albumin/Globulin [Mass ratio] 1.2 {ratio} Normal [facility] Comment on above: Performed By: #### B 2 GLYPROT XOCHITL, FACTOR II DNA, HOMOCYS PL, FACV LEIDM, PROCF, LIPA, LUPANTCOAG, PROT S FUN, METH, CARDIO GMA, AT3 DEF PROFILE #### [facility] , #### [id number], CBC, PHOS, BMP, FE PRO, MG #### [address] ALP [Catalytic activity/Vol] 40 U/L Normal 32-92 [facility] Comment on above: Performed By: #### B 2 GLYPROT XOCHITL, FACTOR II DNA, HOMOCYS PL, FACV LEIDM, PROCF, LIPA, LUPANTCOAG, PROT S FUN, METH, CARDIO GMA, AT3 DEF PROFILE #### [facility] , #### [id number], CBC, PHOS, BMP, FE PRO, MG #### [address] ALT [Catalytic activity/Vol] 86 U/L High 10-60 [facility] Comment on above: Performed By: #### B 2 GLYPROT XOCHITL, FACTOR II DNA, HOMOCYS PL, FACV LEIDM, PROCF, LIPA, LUPANTCOAG, PROT S FUN, METH, CARDIO GMA, AT3 DEF PROFILE #### [facility] , #### [id number], CBC, PHOS, BMP, FE PRO, MG #### [address] AST [Catalytic activity/Vol] 28 U/L Normal 10-42 [facility] Comment on above: Performed By: #### B 2 GLYPROT XOCHITL, FACTOR II DNA, HOMOCYS PL, FACV LEIDM, PROCF, LIPA, LUPANTCOAG, PROT S FUN, METH, CARDIO GMA, AT3 DEF PROFILE #### [facility] , #### [id number], CBC, PHOS, BMP, FE PRO, MG #### [address] Bilirubin [Mass/Vol] 1.1 mg/dL Normal 0.3-1.2 [facility] Comment on above: Performed By: #### B 2 GLYPROT XOCHITL, FACTOR II DNA, HOMOCYS PL, FACV LEIDM, PROCF, LIPA, LUPANTCOAG, PROT S FUN, METH, CARDIO GMA, AT3 DEF PROFILE #### [facility] , #### [id number], CBC, PHOS, BMP, FE PRO, MG #### [address] Calcium [Mass/Vol] 7.6 mg/dL Low 8.2-10.2 [facility] Comment on above: Performed By: #### B 2 GLYPROT XOCHITL, FACTOR II DNA, HOMOCYS PL, FACV LEIDM, PROCF, LIPA, LUPANTCOAG, PROT S FUN, METH, CARDIO GMA, AT3 DEF PROFILE #### [facility] , #### [id number], CBC, PHOS, BMP, FE PRO, MG #### [address] Chloride [Moles/Vol] 106 mmol/L Normal 95-114 [facility] Comment on above: Performed By: #### B 2 GLYPROT XOCHITL, FACTOR II DNA, HOMOCYS PL, FACV LEIDM, PROCF, LIPA, LUPANTCOAG, PROT S FUN, METH, CARDIO GMA, AT3 DEF PROFILE #### [facility] , #### [id number], CBC, PHOS, BMP, FE PRO, MG #### [address] CO2 [Moles/Vol] 19.7 mmol/L Low 22.0-30.0 [facility] Comment on above: Performed By: #### B 2 GLYPROT XOCHITL, FACTOR II DNA, HOMOCYS PL, FACV LEIDM, PROCF, LIPA, LUPANTCOAG, PROT S FUN, METH, CARDIO GMA, AT3 DEF PROFILE #### [facility] , #### [id number], CBC, PHOS, BMP, FE PRO, MG #### [address] Creatinine [Mass/Vol] 1.95 mg/dL High 0.64-1.27 [facility] Comment on above: Performed By: #### B 2 GLYPROT XOCHITL, FACTOR II DNA, HOMOCYS PL, FACV LEIDM, PROCF, LIPA, LUPANTCOAG, PROT S FUN, METH, CARDIO GMA, AT3 DEF PROFILE #### [facility] , #### [id number], CBC, PHOS, BMP, FE PRO, MG #### [facility] [address] [place] [address] Creatinine Clr Calc Pharmacy 42.44 [facility] Comment on above: Performed By: #### B 2 GLYPROT XOCHITL, FACTOR II DNA, HOMOCYS PL, FACV LEIDM, PROCF, LIPA, LUPANTCOAG, PROT S FUN, METH, CARDIO GMA, AT3 DEF PROFILE #### [facility] , #### [id number], CBC, PHOS, BMP, FE PRO, MG #### [facility] [address] [place] [address] Estimated GFR ( Gabriela 41 [facility] Comment on above: Result Comment: GFR estimated reference range: According to KDOQI guidelines, <60 ml/min/1.73m2 is sufficient to diagnose a patient with chronic kidney disease. Performed By: #### B 2 GLYPROT XOCHITL, FACTOR II DNA, HOMOCYS PL, FACV LEIDM, PROCF, LIPA, LUPANTCOAG, PROT S FUN, METH, CARDIO GMA, AT3 DEF PROFILE #### [facility] , #### [id number], CBC, PHOS, BMP, FE PRO, MG #### [address] Estimated GFR (Non- Am 34 [facility] Comment on above: Performed By: #### B 2 GLYPROT XOCHITL, FACTOR II DNA, HOMOCYS PL, FACV LEIDM, PROCF, LIPA, LUPANTCOAG, PROT S FUN, METH, CARDIO GMA, AT3 DEF PROFILE #### [facility] , #### [id number], CBC, PHOS, BMP, FE PRO, MG #### [facility] [address] Globulin (S) [Mass/Vol] 2.3 g/dL Normal [facility] Comment on above: Performed By: #### B 2 GLYPROT XOCHITL, FACTOR II DNA, HOMOCYS PL, FACV LEIDM, PROCF, LIPA, LUPANTCOAG, PROT S FUN, METH, CARDIO GMA, AT3 DEF PROFILE #### [facility] , #### [id number], CBC, PHOS, BMP, FE PRO, MG #### [facility] [address] Glucose [Mass/Vol] 301 mg/dL High 70-100 [facility] Comment on above: Result Comment: [facility] Glucose Reference Range is dependent on time and content of last meal. Glucose of more than 200 mg/dL in a nonstressed, ambulatory subject supports the diagnosis of Diabetes Mellitus. ADA recommended reference range Performed By: #### B 2 GLYPROT XOCHITL, FACTOR II DNA, HOMOCYS PL, FACV LEIDM, PROCF, LIPA, LUPANTCOAG, PROT S FUN, METH, CARDIO GMA, AT3 DEF PROFILE #### [facility] , #### [id number], CBC, PHOS, BMP, FE PRO, MG #### [facility] [address] Potassium [Moles/Vol] 4.9 mmol/L Normal 3.5-5.1 [facility] Comment on above: Performed By: #### B 2 GLYPROT XOCHITL, FACTOR II DNA, HOMOCYS PL, FACV LEIDM, PROCF, LIPA, LUPANTCOAG, PROT S FUN, METH, CARDIO GMA, AT3 DEF PROFILE #### [facility] , #### [id number], CBC, PHOS, BMP, FE PRO, MG #### [facility] [address] Protein [Mass/Vol] 5.0 g/dL Low 6.1-7.9 [facility] Comment on above: Performed By: #### B 2 GLYPROT XOCHITL, FACTOR II DNA, HOMOCYS PL, FACV LEIDM, PROCF, LIPA, LUPANTCOAG, PROT S FUN, METH, CARDIO GMA, AT3 DEF PROFILE #### [facility] , #### [id number], CBC, PHOS, BMP, FE PRO, MG #### [address] Sodium [Moles/Vol] 134 mmol/L Low 136-146 [facility] Comment on above: Performed By: #### B 2 GLYPROT XOCHITL, FACTOR II DNA, HOMOCYS PL, FACV LEIDM, PROCF, LIPA, LUPANTCOAG, PROT S FUN, METH, CARDIO GMA, AT3 DEF PROFILE #### [facility] , #### [id number], CBC, PHOS, BMP, FE PRO, MG #### [address] Urea nitrogen [Mass/Vol] 22 mg/dL Normal 02-08 [facility] Comment on above: Performed By: #### B 2 GLYPROT XOCHITL, FACTOR II DNA, HOMOCYS PL, FACV LEIDM, PROCF, LIPA, LUPANTCOAG, PROT S FUN, METH, CARDIO GMA, AT3 DEF PROFILE #### [facility] , #### [id number], CBC, PHOS, BMP, FE PRO, MG #### [address] Glucose Poct Glucometerson 0 09-15-2020 Commemt1 Glu2: Cleaned Meter Normal [facility] Comment on above: Result Comment: PERF ORMED BY: [place] [address] PATHOLOGIST DIGITAL MARKETING CONSULTANT TOBY GRACIA M.D. Performed By: #### B 2 GLYPROT XOCHITL, FACTOR II DNA, HOMOCYS PL, FACV LEIDM, PROCF, LIPA, LUPANTCOAG, PROT S FUN, METH, CARDIO GMA, AT3 DEF PROFILE #### [facility] , #### [id number], CBC, PHOS, BMP, FE PRO, MG #### [facility] [address] [place] [address] [place] Glucose [Mass/Vol] 245 mg/dL Normal [facility] Comment on above: Result Comment: [facility] Glucose Reference Range is dependent on time and content of last meal. Glucose of more than 200 mg/dL in a nonstressed, ambulatory subject supports the diagnosis of Diabetes Mellitus. Performed By: #### B 2 GLYPROT XOCHITL, FACTOR II DNA, HOMOCYS PL, FACV LEIDM, PROCF, LIPA, LUPANTCOAG, PROT S FUN, METH, CARDIO GMA, AT3 DEF PROFILE #### [facility] , #### [id number], CBC, PHOS, BMP, FE PRO, MG #### [place] [address] [place] Glucose [Mass/Vol] 243 mg/dL Normal [facility] Comment on above: Result Comment: [facility] Glucose Reference Range is dependent on time and content of last meal. Glucose of more than 200 mg/dL in a nonstressed, ambulatory subject supports the diagnosis of Diabetes Mellitus. PERFORMED BY: [place] [address] PATHOLOGIST DIGITAL MARKETING CONSULTANT TOBY GRACIA M.D. Performed By: #### B 2 GLYPROT XOCHITL, FACTOR II DNA, HOMOCYS PL, FACV LEIDM, PROCF, LIPA, LUPANTCOAG, PROT S FUN, METH, CARDIO GMA, AT3 DEF PROFILE #### [facility] , #### [id number], CBC, PHOS, BMP, FE PRO, MG #### [facility] [address] [place] [address] [place] Glucose [Mass/Vol] 253 mg/dL Normal [facility] Comment on above: Result Comment: [facility] Glucose Reference Range is dependent on time and content of last meal. Glucose of more than 200 mg/dL in a nonstressed, ambulatory subject supports the diagnosis of Diabetes Mellitus. PERFORMED BY: [address] [place] [address] PATHOLOGIST DIGITAL MARKETING CONSULTANT TOBY GRACIA M.D. Performed By: #### B 2 GLYPROT XOCHITL, FACTOR II DNA, HOMOCYS PL, FACV LEIDM, PROCF, LIPA, LUPANTCOAG, PROT S FUN, METH, CARDIO GMA, AT3 DEF PROFILE #### [facility] , #### [id number], CBC, PHOS, BMP, FE PRO, MG #### [facility] [address] [place] [address] [place] Glucose [Mass/Vol] 299 mg/dL Normal [facility] Comment on above: Result Comment: [facility] Glucose Reference Range is dependent on time and content of last meal. Glucose of more than 200 mg/dL in a nonstressed, ambulatory subject supports the diagnosis of Diabetes Mellitus. PERFORMED BY: [place] [phone] PATHOLOGIST DIGITAL MARKETING CONSULTANT TOBY GRACIA M.D. Performed By: #### B 2 GLYPROT XOCHITL, FACTOR II DNA, HOMOCYS PL, FACV LEIDM, PROCF, LIPA, LUPANTCOAG, PROT S FUN, METH, CARDIO GMA, AT3 DEF PROFILE #### [facility] , #### [id number], CBC, PHOS, BMP, FE PRO, MG #### [facility] [address] [place] [address] [place] Glucose [Mass/Vol] 234 mg/dL Normal [facility] Comment on above: Result Comment: [facility] Glucose Reference Range is dependent on time and content of last meal. Glucose of more than 200 mg/dL in a nonstressed, ambulatory subject supports the diagnosis of Diabetes Mellitus. PERFORMED BY: [place] [phone] PATHOLOGIST DIGITAL MARKETING CONSULTANT TOBY GRACIA M.D. Performed By: #### B 2 GLYPROT XOCHITL, FACTOR II DNA, HOMOCYS PL, FACV LEIDM, PROCF, LIPA, LUPANTCOAG, PROT S FUN, METH, CARDIO GMA, AT3 DEF PROFILE #### [facility] , #### [id number], CBC, PHOS, BMP, FE PRO, MG #### [facility] [address] Lactic Acid Reflexon 021 Lactic Acid Reflex 3.3 mmol/L Off scale high 0.5-2.2 [facility] Comment on above: Result Comment: Crit ical value result called at 2226 on 09/14/20 PERFORMED BY: [place] [address] PATHOLOGIST DIGITAL MARKETING CONSULTANT TOBY GRACIA M.D. Performed By: #### B 2 GLYPROT XOCHITL, FACTOR II DNA, HOMOCYS PL, FACV LEIDM, PROCF, LIPA, LUPANTCOAG, PROT S FUN, METH, CARDIO GMA, AT3 DEF PROFILE #### [facility] , #### [id number], CBC, PHOS, BMP, FE PRO, MG #### [facility] [address] Lactoferrin, Stool WBCon Lactoferrin, Stool WBC > or = to 3 loose/watery stools in the last 24 HRS? Y Is patient on promotility agents or tube feeding? N LACTOFERRIN Negative for Fecal Lactoferrin Immune suppression may cause reduced WBC counts, leading to a false negative result. Reference range = Negative > or = to 3 loose/watery stools in the last 24 HRS? Y Is patient on promotility agents or tube feeding? N CDT DNA Results Negative for Toxigenic C. Difficile by DNA Amplification Reference range = Negative PERFORMED BY: [place] [address] PATHOLOGIST DIGITAL MARKETING CONSULTANT TOBY GRACIA M.D. Normal [facility] Comment on above: Performed By: #### B 2 GLYPROT XOCHITL, FACTOR II DNA, HOMOCYS PL, FACV LEIDM, PROCF, LIPA, LUPANTCOAG, PROT S FUN, METH, CARDIO GMA, AT3 DEF PROFILE #### [facility] , #### [id number], CBC, PHOS, BMP, FE PRO, MG #### [facility] [address] [place] [address] Magnesiumon 09-15-2020 Magnesium [Mass/Vol] 1.5 mg/dL Low 1.6-2.6 [facility] Comment on above: Result Comment: PERF ORMED BY: [place] [address] PATHOLOGIST DIGITAL MARKETING CONSULTANT TOBY GRACIA M.D. Performed By: #### B 2 GLYPROT XOCHITL, FACTOR II DNA, HOMOCYS PL, FACV LEIDM, PROCF, LIPA, LUPANTCOAG, PROT S FUN, METH, CARDIO GMA, AT3 DEF PROFILE #### [facility] , #### [id number], CBC, PHOS, BMP, FE PRO, MG #### [facility] [address] [place] [address] Urinalysison 09-15-2020 Appearance (U) Clear Normal Clear [facility] Comment on above: Order Comment: PT IS NON FASTING Performed By: #### B 2 GLYPROT XOCHITL, FACTOR II DNA, HOMOCYS PL, FACV LEIDM, PROCF, LIPA, LUPANTCOAG, PROT S FUN, METH, CARDIO GMA, AT3 DEF PROFILE #### [facility] , #### [id number], CBC, PHOS, BMP, FE PRO, MG #### [facility] [address] [place] [address] Bilirubin,Urine Negative Normal Negative [facility] Comment on above: Order Comment: PT IS NON FASTING Performed By: #### B 2 GLYPROT XOCHITL, FACTOR II DNA, HOMOCYS PL, FACV LEIDM, PROCF, LIPA, LUPANTCOAG, PROT S FUN, METH, CARDIO GMA, AT3 DEF PROFILE #### [facility] , #### [id number], CBC, PHOS, BMP, FE PRO, MG #### [place] [address] [place] Color (U) Yellow Normal Yellow [facility] Comment on above: Order Comment: PT IS NON FASTING Performed By: #### B 2 GLYPROT XOCHITL, FACTOR II DNA, HOMOCYS PL, FACV LEIDM, PROCF, LIPA, LUPANTCOAG, PROT S FUN, METH, CARDIO GMA, AT3 DEF PROFILE #### [facility] , #### [id number], CBC, PHOS, BMP, FE PRO, MG #### [address] Glucose Ql (U) 100 mg/dL High Normal [facility] Comment on above: Order Comment: PT IS NON FASTING Performed By: #### B 2 GLYPROT XOCHITL, FACTOR II DNA, HOMOCYS PL, FACV LEIDM, PROCF, LIPA, LUPANTCOAG, PROT S FUN, METH, CARDIO GMA, AT3 DEF PROFILE #### [facility] , #### [id number], CBC, PHOS, BMP, FE PRO, MG #### [place] [address] [place] Ketones Ql (U) Trace High Negative [facility] Comment on above: Order Comment: PT IS NON FASTING Performed By: #### B 2 GLYPROT XOCHITL, FACTOR II DNA, HOMOCYS PL, FACV LEIDM, PROCF, LIPA, LUPANTCOAG, PROT S FUN, METH, CARDIO GMA, AT3 DEF PROFILE #### [facility] , #### [id number], CBC, PHOS, BMP, FE PRO, MG #### [address] Leukocyte esterase Test strip Ql (U) Negative Normal Negative [facility] Comment on above: Order Comment: PT IS NON FASTING Performed By: #### B 2 GLYPROT XOCHITL, FACTOR II DNA, HOMOCYS PL, FACV LEIDM, PROCF, LIPA, LUPANTCOAG, PROT S FUN, METH, CARDIO GMA, AT3 DEF PROFILE #### [facility] , #### [id number], CBC, PHOS, BMP, FE PRO, MG #### [facility] [address] [place] [address] Nitrite,Urine Negative Normal Negative [facility] Comment on above: Order Comment: PT IS NON FASTING Performed By: #### B 2 GLYPROT XOCHITL, FACTOR II DNA, HOMOCYS PL, FACV LEIDM, PROCF, LIPA, LUPANTCOAG, PROT S FUN, METH, CARDIO GMA, AT3 DEF PROFILE #### [facility] , #### [id number], CBC, PHOS, BMP, FE PRO, MG #### [facility] [address] [place] [address] Occult Blood,Urine Negative Normal Negative [facility] Comment on above: Order Comment: PT IS NON FASTING Result Comment: PERF ORMED BY: [place] [address] PATHOLOGIST DIGITAL MARKETING CONSULTANT TOBY GRACIA M.D. Performed By: #### B 2 GLYPROT XOCHITL, FACTOR II DNA, HOMOCYS PL, FACV LEIDM, PROCF, LIPA, LUPANTCOAG, PROT S FUN, METH, CARDIO GMA, AT3 DEF PROFILE #### [facility] , #### [id number], CBC, PHOS, BMP, FE PRO, MG #### [facility] [address] [place] [address] pH (U) 5.0 [pH] Normal 5.0-9.0 [facility] Comment on above: Order Comment: PT IS NON FASTING Performed By: #### B 2 GLYPROT XOCHITL, FACTOR II DNA, HOMOCYS PL, FACV LEIDM, PROCF, LIPA, LUPANTCOAG, PROT S FUN, METH, CARDIO GMA, AT3 DEF PROFILE #### [facility] , #### [id number], CBC, PHOS, BMP, FE PRO, MG #### [facility] [address] [place] [address] Protein,Urine Negative Normal Negative [facility] Comment on above: Order Comment: PT IS NON FASTING Performed By: #### B 2 GLYPROT XOCHITL, FACTOR II DNA, HOMOCYS PL, FACV LEIDM, PROCF, LIPA, LUPANTCOAG, PROT S FUN, METH, CARDIO GMA, AT3 DEF PROFILE #### [facility] , #### [id number], CBC, PHOS, BMP, FE PRO, MG #### [address] Specificy [place],Urine 1.018 Normal 1.001-1.030 [facility] Comment on above: Order Comment: PT IS NON FASTING Performed By: #### B 2 GLYPROT XOCHITL, FACTOR II DNA, HOMOCYS PL, FACV LEIDM, PROCF, LIPA, LUPANTCOAG, PROT S FUN, METH, CARDIO GMA, AT3 DEF PROFILE #### [facility] , #### [id number], CBC, PHOS, BMP, FE PRO, MG #### [address] Urobilinogen,Urin e Normal Normal Normal [facility] Comment on above: Order Comment: PT IS NON FASTING Performed By: #### B 2 GLYPROT XOCHITL, FACTOR II DNA, HOMOCYS PL, FACV LEIDM, PROCF, LIPA, LUPANTCOAG, PROT S FUN, METH, CARDIO GMA, AT3 DEF PROFILE #### [facility] , #### [id number], CBC, PHOS, BMP, FE PRO, MG #### [address] Basic Metabolic Panelon 08-18 Calcium [Mass/Vol] 8.5 mg/dL Normal 8.2-10.2 [facility] Comment on above: Performed By: #### B 2 GLYPROT XOCHITL, FACTOR II DNA, HOMOCYS PL, FACV LEIDM, PROCF, LIPA, LUPANTCOAG, PROT S FUN, METH, CARDIO GMA, AT3 DEF PROFILE #### [facility] , #### [id number], CBC, PHOS, BMP, FE PRO, MG #### [facility] [address] Chloride [Moles/Vol] 99 mmol/L Normal 95-114 [facility] Comment on above: Performed By: #### B 2 GLYPROT XOCHITL, FACTOR II DNA, HOMOCYS PL, FACV LEIDM, PROCF, LIPA, LUPANTCOAG, PROT S FUN, METH, CARDIO GMA, AT3 DEF PROFILE #### [facility] , #### [id number], CBC, PHOS, BMP, FE PRO, MG #### [address] CO2 [Moles/Vol] 22.9 mmol/L Normal 22.0-30.0 [facility] Comment on above: Performed By: #### B 2 GLYPROT XOCHITL, FACTOR II DNA, HOMOCYS PL, FACV LEIDM, PROCF, LIPA, LUPANTCOAG, PROT S FUN, METH, CARDIO GMA, AT3 DEF PROFILE #### [facility] , #### [id number], CBC, PHOS, BMP, FE PRO, MG #### [address] Creatinine [Mass/Vol] 2.82 mg/dL High 0.64-1.27 [facility] Comment on above: Performed By: #### B 2 GLYPROT XOCHITL, FACTOR II DNA, HOMOCYS PL, FACV LEIDM, PROCF, LIPA, LUPANTCOAG, PROT S FUN, METH, CARDIO GMA, AT3 DEF PROFILE #### [facility] , #### [id number], CBC, PHOS, BMP, FE PRO, MG #### [facility] [address] Creatinine Clr Calc Pharmacy 28.93 [facility] Comment on above: Performed By: #### B 2 GLYPROT XOCHITL, FACTOR II DNA, HOMOCYS PL, FACV LEIDM, PROCF, LIPA, LUPANTCOAG, PROT S FUN, METH, CARDIO GMA, AT3 DEF PROFILE #### [facility] , #### [id number], CBC, PHOS, BMP, FE PRO, MG #### [facility] [address] Estimated GFR ( Gabriela 27 [facility] Comment on above: Result Comment: GFR estimated reference range: According to KDOQI guidelines, <60 ml/min/1.73m2 is sufficient to diagnose a patient with chronic kidney disease. Performed By: #### B 2 GLYPROT XOCHITL, FACTOR II DNA, HOMOCYS PL, FACV LEIDM, PROCF, LIPA, LUPANTCOAG, PROT S FUN, METH, CARDIO GMA, AT3 DEF PROFILE #### [facility] , #### [id number], CBC, PHOS, BMP, FE PRO, MG #### [address] Estimated GFR (Non- Am 22 [facility] Comment on above: Performed By: #### B 2 GLYPROT XOCHITL, FACTOR II DNA, HOMOCYS PL, FACV LEIDM, PROCF, LIPA, LUPANTCOAG, PROT S FUN, METH, CARDIO GMA, AT3 DEF PROFILE #### [facility] , #### [id number], CBC, PHOS, BMP, FE PRO, MG #### [facility] [address] [place] [address] Glucose [Mass/Vol] 388 mg/dL High 70-100 [facility] Comment on above: Result Comment: Maidens om Glucose Reference Range is dependent on time and content of last meal. Glucose of more than 200 mg/dL in a nonstressed, ambulatory subject supports the diagnosis of Diabetes Mellitus. ADA recommended reference range Performed By: #### B 2 GLYPROT XOCHITL, FACTOR II DNA, HOMOCYS PL, FACV LEIDM, PROCF, LIPA, LUPANTCOAG, PROT S FUN, METH, CARDIO GMA, AT3 DEF PROFILE #### [facility] , #### [id number], CBC, PHOS, BMP, FE PRO, MG #### [address] Potassium [Moles/Vol] 4.7 mmol/L Normal 3.5-5.1 [facility] Comment on above: Performed By: #### B 2 GLYPROT XOCHITL, FACTOR II DNA, HOMOCYS PL, FACV LEIDM, PROCF, LIPA, LUPANTCOAG, PROT S FUN, METH, CARDIO GMA, AT3 DEF PROFILE #### [facility] , #### [id number], CBC, PHOS, BMP, FE PRO, MG #### [address] Sodium [Moles/Vol] 131 mmol/L Low 136-146 [facility] Comment on above: Performed By: #### B 2 GLYPROT XOCHITL, FACTOR II DNA, HOMOCYS PL, FACV LEIDM, PROCF, LIPA, LUPANTCOAG, PROT S FUN, METH, CARDIO GMA, AT3 DEF PROFILE #### [facility] , #### [id number], CBC, PHOS, BMP, FE PRO, MG #### [address] Urea nitrogen [Mass/Vol] 25 mg/dL High 9-23 [facility] Comment on above: Performed By: #### B 2 GLYPROT XOCHITL, FACTOR II DNA, HOMOCYS PL, FACV LEIDM, PROCF, LIPA, LUPANTCOAG, PROT S FUN, METH, CARDIO GMA, AT3 DEF PROFILE #### [facility] , #### [id number], CBC, PHOS, BMP, FE PRO, MG #### [facility] [address] [place] [id number] [facility] COVID-19 Antigenon 1 COVID-19 Antigen Healthcare Worker?: N Kate Reference Kate Reference Negative SARS-CoV+SARS-CoV-2 (COVID-19) Ag [Presence] in Respiratory specimen by Rapid immunoassay Negative for SARS Antigen by [facility] COVID19 Blank Space Kate Disclaimer Negative results, from patients with symptom Kate Disclaimer onset beyond five days, should be treated as Kate Disclaimer presumptive and confirmation with a molecular Kate Disclaimer assay, if necessary, for patient management, Kate Disclaimer may be performed. Negative results do not rule Kate Disclaimer out COVID-19 and should not be used as the sole Kate Disclaimer basis for treatment or patient management Kate Disclaimer decisions, including infection control decisions. Kate Disclaimer Negative results should be considered in the Kate Disclaimer context of a patient's recent exposures, history Kate Disclaimer and the presence of clinical signs and symptoms Kate Disclaimer consistent with COVID-19. COVID19 Blank Space Kate Disclaimer The Kate SARS Antigen [facility]ORE does not differentiate Kate Disclaimer between SARS-CoV and SARS-CoV-2. COVID19 Blank Space Kate Disclaimer This test was developed and its performance Kate Disclaimer characteristic determined by [employer] and Kate Disclaimer validated at [facility]. This Kate Disclaimer test has not been FDA cleared or approved. This Kate Disclaimer test has been authorized by FDA under an Emergency Use Kate Disclaimer Authorization (EUA). This test has been validated Kate Disclaimer in accordance with the FDA's Guidance Document (Policy Kate Disclaimer for Diagnostics Testing in Laboratories Certified to Kate Disclaimer Perform High Complexity Testing under CLIA prior to Kate Disclaimer Emergency Use Authorization for Coronavirus Kate Disclaimer iseas during the Public Health Emergency) Kate Disclaimer issued on August 19, 2019. This test is only authorized Kate Disclaimer for the duration of time the declaration that Kate Disclaimer circumstances exist justifying the authorization of Kate Disclaimer the emergency use of in vitro diagnostic tests for Kate Disclaimer detection of SARS-CoV-2 virus and/or diagnosis of Kate Disclaimer COVID-19 infection under section 564(b)(1) of the Kate Disclaimer Act, 21 U.S.C. 360bbb-3(b)(1), unless the Kate Disclaimer authorization is terminated or revoked sooner. PERFORMED BY: [place] [address] PATHOLOGIST DIGITAL MARKETING CONSULTANT TOBY GRACIA M.D. Normal [facility] Comment on above: Performed By: #### B 2 GLYPROT XOCHITL, FACTOR II DNA, HOMOCYS PL, FACV LEIDM, PROCF, LIPA, LUPANTCOAG, PROT S FUN, METH, CARDIO GMA, AT3 DEF PROFILE #### [facility] , #### [id number], CBC, PHOS, BMP, FE PRO, MG #### [facility] [address] [facility] SARS-CoV-2 (COVID-19) RNA MOLLY+probe Ql (Unsp spec) Negative Normal Negative [facility] Comment on above: Order Comment: PT IS NON FASTING Result Comment: Test ing for SARS-CoV-2 by RT-PCR This test was developed and its performance characteristics determined by [employer] and validated at the [facility]. This test has not been FDA cleared or approved. This test has been authorized by FDA under an Emergency Use Authorization (EUA). This test has been validated in accordance with the FDA's Guidance Document (Policy for Diagnostics Testing in Laboratories Certified to Perform High Complexity Testing under CLIA prior to Emergency Use Authorization for Coronavirus Disease-2019 during the Public Health Emergency) issued on August 19, 2019. This test is only authorized for the duration of time the declaration that circumstances exist justifying the authorization of the emergency use of in vitro diagnostic tests for detection of SARS-CoV-2 virus and/or diagnosis of COVID-19 infection under section 564(b)(1) of the Act, 21 U.S.C. 360bbb-3(b)(1), unless the authorization is terminated or revoked sooner. PERFORMED BY: [place] [address] PATHOLOGIST DIGITAL MARKETING CONSULTANT TOBY GRACIA M.D. Performed By: #### B 2 GLYPROT XOCHITL, FACTOR II DNA, HOMOCYS PL, FACV LEIDM, PROCF, LIPA, LUPANTCOAG, PROT S FUN, METH, CARDIO GMA, AT3 DEF PROFILE #### [facility] , #### [id number], CBC, PHOS, BMP, FE PRO, MG #### [address] Complete Blood Count Auto Di ffon 09-14-2020 Basophils (Bld) [#/Vol] 0.1 10*3/uL Normal 0.0-0.2 [facility] Comment on above: Result Comment: PERF ORMED BY: [place] [address] PATHOLOGIST DIGITAL MARKETING CONSULTANT TOBY GRACIA M.D. Performed By: #### B 2 GLYPROT XOCHITL, FACTOR II DNA, HOMOCYS PL, FACV LEIDM, PROCF, LIPA, LUPANTCOAG, PROT S FUN, METH, CARDIO GMA, AT3 DEF PROFILE #### [facility] , #### [id number], CBC, PHOS, BMP, FE PRO, MG #### [address] Basophils/100 WBC (Bld) 1.1 % Normal . [facility] Comment on above: Performed By: #### B 2 GLYPROT XOCHITL, FACTOR II DNA, HOMOCYS PL, FACV LEIDM, PROCF, LIPA, LUPANTCOAG, PROT S FUN, METH, CARDIO GMA, AT3 DEF PROFILE #### [facility] , #### [id number], CBC, PHOS, BMP, FE PRO, MG #### [facility] [address] [place] [address] Eosinophils (Bld) [#/Vol] 0.4 10*3/uL Normal 0.0-0.45 [facility] Comment on above: Performed By: #### B 2 GLYPROT XOCHITL, FACTOR II DNA, HOMOCYS PL, FACV LEIDM, PROCF, LIPA, LUPANTCOAG, PROT S FUN, METH, CARDIO GMA, AT3 DEF PROFILE #### [facility] , #### [id number], CBC, PHOS, BMP, FE PRO, MG #### [address] Eosinophils/100 WBC (Bld) 3.2 % Normal . [facility] Comment on above: Performed By: #### B 2 GLYPROT XOCHITL, FACTOR II DNA, HOMOCYS PL, FACV LEIDM, PROCF, LIPA, LUPANTCOAG, PROT S FUN, METH, CARDIO GMA, AT3 DEF PROFILE #### [facility] , #### [id number], CBC, PHOS, BMP, FE PRO, MG #### [address] Erythrocyte distribution width (RBC) [Ratio] 13.5 % Normal 12.0-14.8 [facility] Comment on above: Performed By: #### B 2 GLYPROT XOCHITL, FACTOR II DNA, HOMOCYS PL, FACV LEIDM, PROCF, LIPA, LUPANTCOAG, PROT S FUN, METH, CARDIO GMA, AT3 DEF PROFILE #### [facility] , #### [id number], CBC, PHOS, BMP, FE PRO, MG #### [address] Hematocrit (Bld) [Volume fraction] 44.2 % Normal 38.8-50.0 [facility] Comment on above: Performed By: #### B 2 GLYPROT XOCHITL, FACTOR II DNA, HOMOCYS PL, FACV LEIDM, PROCF, LIPA, LUPANTCOAG, PROT S FUN, METH, CARDIO GMA, AT3 DEF PROFILE #### [facility] , #### [id number], CBC, PHOS, BMP, FE PRO, MG #### [address] Hemoglobin (Bld) [Mass/Vol] 15.1 g/dL Normal 13.0-17.0 [facility] Comment on above: Performed By: #### B 2 GLYPROT XOCHITL, FACTOR II DNA, HOMOCYS PL, FACV LEIDM, PROCF, LIPA, LUPANTCOAG, PROT S FUN, METH, CARDIO GMA, AT3 DEF PROFILE #### [facility] , #### [id number], CBC, PHOS, BMP, FE PRO, MG #### [address] Lymphocytes (Bld) [#/Vol] 2.2 10*3/uL Normal 1.00-4.8 [facility] Comment on above: Performed By: #### B 2 GLYPROT XOCHITL, FACTOR II DNA, HOMOCYS PL, FACV LEIDM, PROCF, LIPA, LUPANTCOAG, PROT S FUN, METH, CARDIO GMA, AT3 DEF PROFILE #### [facility] , #### [id number], CBC, PHOS, BMP, FE PRO, MG #### [address] Lymphocytes/100 WBC (Bld) 19.4 % Normal . [facility] Comment on above: Performed By: #### B 2 GLYPROT XOCHITL, FACTOR II DNA, HOMOCYS PL, FACV LEIDM, PROCF, LIPA, LUPANTCOAG, PROT S FUN, METH, CARDIO GMA, AT3 DEF PROFILE #### [facility] , #### [id number], CBC, PHOS, BMP, FE PRO, MG #### [address] MCH (RBC) [Entitic mass] 31.5 pg Normal 27.5-35.2 [facility] Comment on above: Performed By: #### B 2 GLYPROT XOCHITL, FACTOR II DNA, HOMOCYS PL, FACV LEIDM, PROCF, LIPA, LUPANTCOAG, PROT S FUN, METH, CARDIO GMA, AT3 DEF PROFILE #### [facility] , #### [id number], CBC, PHOS, BMP, FE PRO, MG #### [address] MCV (RBC) [Entitic vol] 91.9 fL Normal 83.5-101 [facility] Comment on above: Performed By: #### B 2 GLYPROT XOCHITL, FACTOR II DNA, HOMOCYS PL, FACV LEIDM, PROCF, LIPA, LUPANTCOAG, PROT S FUN, METH, CARDIO GMA, AT3 DEF PROFILE #### [facility] , #### [id number], CBC, PHOS, BMP, FE PRO, MG #### [address] Mean Corpuscular HGB Conc 34.3 g/dL Normal 32.5-35.6 [facility] Comment on above: Performed By: #### B 2 GLYPROT XOCHITL, FACTOR II DNA, HOMOCYS PL, FACV LEIDM, PROCF, LIPA, LUPANTCOAG, PROT S FUN, METH, CARDIO GMA, AT3 DEF PROFILE #### [facility] , #### [id number], CBC, PHOS, BMP, FE PRO, MG #### [facility] [address] [place] [address] [place] Monocytes (Bld) [#/Vol] 1.3 10*3/uL High 0.0-0.8 [facility] Comment on above: Performed By: #### B 2 GLYPROT XOCHITL, FACTOR II DNA, HOMOCYS PL, FACV LEIDM, PROCF, LIPA, LUPANTCOAG, PROT S FUN, METH, CARDIO GMA, AT3 DEF PROFILE #### [facility] , #### [id number], CBC, PHOS, BMP, FE PRO, MG #### [facility] [address] [place] [address] [place] Monocytes/100 WBC (Bld) 11.2 % Normal . [facility] Comment on above: Performed By: #### B 2 GLYPROT XOCHITL, FACTOR II DNA, HOMOCYS PL, FACV LEIDM, PROCF, LIPA, LUPANTCOAG, PROT S FUN, METH, CARDIO GMA, AT3 DEF PROFILE #### [facility] , #### [id number], CBC, PHOS, BMP, FE PRO, MG #### [place] [address] [place] Neutrophils (Bld) [#/Vol] 7.4 10*3/uL Normal 1.8-7.7 [facility] Comment on above: Performed By: #### B 2 GLYPROT XOCHITL, FACTOR II DNA, HOMOCYS PL, FACV LEIDM, PROCF, LIPA, LUPANTCOAG, PROT S FUN, METH, CARDIO GMA, AT3 DEF PROFILE #### [facility] , #### [id number], CBC, PHOS, BMP, FE PRO, MG #### [facility] [address] [place] [address] [place] Neutrophils/100 WBC (Bld) 65.1 % Normal . [facility] Comment on above: Performed By: #### B 2 GLYPROT XOCHITL, FACTOR II DNA, HOMOCYS PL, FACV LEIDM, PROCF, LIPA, LUPANTCOAG, PROT S FUN, METH, CARDIO GMA, AT3 DEF PROFILE #### [facility] , #### [id number], CBC, PHOS, BMP, FE PRO, MG #### [address] Nucleated RBC/100 WBC (Bld) [Ratio] 0.2 % Normal 0-0.5 [facility] Comment on above: Performed By: #### B 2 GLYPROT XOCHITL, FACTOR II DNA, HOMOCYS PL, FACV LEIDM, PROCF, LIPA, LUPANTCOAG, PROT S FUN, METH, CARDIO GMA, AT3 DEF PROFILE #### [facility] , #### [id number], CBC, PHOS, BMP, FE PRO, MG #### [address] Platelet mean volume (Bld) [Entitic vol] 10.3 fL High 6.6-10.1 [facility] Comment on above: Performed By: #### B 2 GLYPROT XOCHITL, FACTOR II DNA, HOMOCYS PL, FACV LEIDM, PROCF, LIPA, LUPANTCOAG, PROT S FUN, METH, CARDIO GMA, AT3 DEF PROFILE #### [facility] , #### [id number], CBC, PHOS, BMP, FE PRO, MG #### [address] Platelets (Bld) [#/Vol] 314 10*3/uL Normal 150-450 [facility] Comment on above: Performed By: #### B 2 GLYPROT XOCHITL, FACTOR II DNA, HOMOCYS PL, FACV LEIDM, PROCF, LIPA, LUPANTCOAG, PROT S FUN, METH, CARDIO GMA, AT3 DEF PROFILE #### [facility] , #### [id number], CBC, PHOS, BMP, FE PRO, MG #### [address] RBC (Bld) [#/Vol] 4.81 10*6/uL Normal 3.90-5.[address] [facility] Comment on above: Performed By: #### B 2 GLYPROT XOCHITL, FACTOR II DNA, HOMOCYS PL, FACV LEIDM, PROCF, LIPA, LUPANTCOAG, PROT S FUN, METH, CARDIO GMA, AT3 DEF PROFILE #### [facility] , #### [id number], CBC, PHOS, BMP, FE PRO, MG #### [facility] [address] [place] [address] WBC (Bld) [#/Vol] 11.4 10*3/uL High 4.5-11.[address] [facility] Comment on above: Performed By: #### B 2 GLYPROT XOCHITL, FACTOR II DNA, HOMOCYS PL, FACV LEIDM, PROCF, LIPA, LUPANTCOAG, PROT S FUN, METH, CARDIO GMA, AT3 DEF PROFILE #### [facility] , #### [id number], CBC, PHOS, BMP, FE PRO, MG #### [address] Cortisolon 09-14-2020 Cortisol 5.9 ug/dL Normal [facility] Comment on above: Result Comment: Refe rence range: AM 6 - 24 ug/dl PM <10 ug/dl PERFORMED BY: [place] [address] PATHOLOGIST DIGITAL MARKETING CONSULTANT TOBY GRACIA M.D. Performed By: #### B 2 GLYPROT XOCHITL, FACTOR II DNA, HOMOCYS PL, FACV LEIDM, PROCF, LIPA, LUPANTCOAG, PROT S FUN, METH, CARDIO GMA, AT3 DEF PROFILE #### [facility] , #### [id number], CBC, PHOS, BMP, FE PRO, MG #### [facility] [address] [place] [address] ECG 12 lead ECGon 09-14-2020 ECG 12 lead ECG [facility] [address] [place] [address] Electrocardiograph Report Signed Patient: Don Elkins MR#: [id number] : 1950 Acct:[id number] Age/Sex: 70 / M ADM Date: 09/14/20 Loc: 3T Room: [address] [place] [address] Type: ADM IN Attending Dr: Carloz Roe MD Ordering Provider: Nando Sandoval DO Date of Service: 09/14/20 ECG/ECG 12 lead ECG: PER DR Copies to: Test Reason : Blood Pressure : 119/059 mmHG Vent. Rate : 088 BPM Atrial Rate : 088 BPM P-R Int : 152 ms QRS Dur : 086 ms QT Int : 366 ms P-R-T Axes : 072 009 -11 degrees QTc Int : 442 ms Sinus rhythm with occasional premature ventricular complexes Inferior infarct , age undetermined Abnormal ECG When compared with ECG of 11-SEP-2020 17:39, premature ventricular complexes are now present Inferior infarct is now present Nonspecific T wave abnormality now evident in Inferior leads Confirmed by Nando Sandoval DO ([id number]) on 09/15/2020 10:03:14 AM Referred By: Electronically Signed By:Nando Sandoval DO Transcribed By: MUS Dictated By: Nando Sandoval DO 09/14/20 1757 Signed By: 09/15/20 1003 [facility] Hepatic Panelon 09-14-2020 Albumin [Mass/Vol] 3.2 g/dL Normal 3.2-5.5 [facility] Comment on above: Performed By: #### B 2 GLYPROT XOCHITL, FACTOR II DNA, HOMOCYS PL, FACV LEIDM, PROCF, LIPA, LUPANTCOAG, PROT S FUN, METH, CARDIO GMA, AT3 DEF PROFILE #### [facility] , #### [id number], CBC, PHOS, BMP, FE PRO, MG #### [facility] [address] Albumin/Globulin [Mass ratio] 1.1 {ratio} [facility] Comment on above: Performed By: #### B 2 GLYPROT XOCHITL, FACTOR II DNA, HOMOCYS PL, FACV LEIDM, PROCF, LIPA, LUPANTCOAG, PROT S FUN, METH, CARDIO GMA, AT3 DEF PROFILE #### [facility] , #### [id number], CBC, PHOS, BMP, FE PRO, MG #### [address] ALP [Catalytic activity/Vol] 48 U/L Normal 32-92 [facility] Comment on above: Performed By: #### B 2 GLYPROT XOCHITL, FACTOR II DNA, HOMOCYS PL, FACV LEIDM, PROCF, LIPA, LUPANTCOAG, PROT S FUN, METH, CARDIO GMA, AT3 DEF PROFILE #### [facility] , #### [id number], CBC, PHOS, BMP, FE PRO, MG #### [address] ALT [Catalytic activity/Vol] 111 U/L High 10-60 [facility] Comment on above: Performed By: #### B 2 GLYPROT XOCHITL, FACTOR II DNA, HOMOCYS PL, FACV LEIDM, PROCF, LIPA, LUPANTCOAG, PROT S FUN, METH, CARDIO GMA, AT3 DEF PROFILE #### [facility] , #### [id number], CBC, PHOS, BMP, FE PRO, MG #### [address] AST [Catalytic activity/Vol] 41 U/L Normal 10-42 [facility] Comment on above: Performed By: #### B 2 GLYPROT XOCHITL, FACTOR II DNA, HOMOCYS PL, FACV LEIDM, PROCF, LIPA, LUPANTCOAG, PROT S FUN, METH, CARDIO GMA, AT3 DEF PROFILE #### [facility] , #### [id number], CBC, PHOS, BMP, FE PRO, MG #### [address] Bilirubin [Mass/Vol] 1.2 mg/dL Normal 0.3-1.2 [facility] Comment on above: Performed By: #### B 2 GLYPROT XOCHITL, FACTOR II DNA, HOMOCYS PL, FACV LEIDM, PROCF, LIPA, LUPANTCOAG, PROT S FUN, METH, CARDIO GMA, AT3 DEF PROFILE #### [facility] , #### [id number], CBC, PHOS, BMP, FE PRO, MG #### [address] Bilirubin,Indirec t 1.0 mg/dL Normal [facility] Comment on above: Performed By: #### B 2 GLYPROT XOCHITL, FACTOR II DNA, HOMOCYS PL, FACV LEIDM, PROCF, LIPA, LUPANTCOAG, PROT S FUN, METH, CARDIO GMA, AT3 DEF PROFILE #### [facility] , #### [id number], CBC, PHOS, BMP, FE PRO, MG #### [address] Bilirubin.indirec t [Mass/Vol] 0.2 mg/dL Normal 0.0-0.4 [facility] Comment on above: Performed By: #### B 2 GLYPROT XOCHITL, FACTOR II DNA, HOMOCYS PL, FACV LEIDM, PROCF, LIPA, LUPANTCOAG, PROT S FUN, METH, CARDIO GMA, AT3 DEF PROFILE #### [facility] , #### [id number], CBC, PHOS, BMP, FE PRO, MG #### [address] Globulin (S) [Mass/Vol] 2.9 g/dL Normal [facility] Comment on above: Performed By: #### B 2 GLYPROT XOCHITL, FACTOR II DNA, HOMOCYS PL, FACV LEIDM, PROCF, LIPA, LUPANTCOAG, PROT S FUN, METH, CARDIO GMA, AT3 DEF PROFILE #### [facility] , #### [id number], CBC, PHOS, BMP, FE PRO, MG #### [address] Protein [Mass/Vol] 6.1 g/dL Normal 6.1-7.9 [facility] Comment on above: Performed By: #### B 2 GLYPROT XOCHITL, FACTOR II DNA, HOMOCYS PL, FACV LEIDM, PROCF, LIPA, LUPANTCOAG, PROT S FUN, METH, CARDIO GMA, AT3 DEF PROFILE #### [facility] , #### [id number], CBC, PHOS, BMP, FE PRO, MG #### [address] Lactic Acidon 09-14-2020 Lactate [Moles/Vol] 2.5 mmol/L Off scale high 0.5-2.2 [facility] Comment on above: Result Comment: Crit ical value result called at 1847 on 09/14/20 PERFORMED BY: [place] [address] PATHOLOGIST [employer] TOBY GRACIA M.D. Performed By: #### B 2 GLYPROT XOCHITL, FACTOR II DNA, HOMOCYS PL, FACV LEIDM, PROCF, LIPA, LUPANTCOAG, PROT S FUN, METH, CARDIO GMA, AT3 DEF PROFILE #### [facility] , #### [id number], CBC, PHOS, BMP, FE PRO, MG #### [place] [id number] [facility] Lipaseon 09-14-2020 Lipase [Catalytic activity/Vol] 145.0 U/L High 22-51 [facility] Comment on above: Result Comment: PERF ORMED BY: [place] [address] PATHOLOGIST [employer] MARKETING CONSULTANT TOBY GRACIA M.D. Performed By: #### B 2 GLYPROT XOCHITL, FACTOR II DNA, HOMOCYS PL, FACV LEIDM, PROCF, LIPA, LUPANTCOAG, PROT S FUN, METH, CARDIO GMA, AT3 DEF PROFILE #### [facility] , #### [id number], CBC, PHOS, BMP, FE PRO, MG #### [facility] [address] Magnesiumon 09-14-2020 Magnesium [Mass/Vol] 1.7 mg/dL Normal 1.6-2.6 [facility] Comment on above: Performed By: #### B 2 GLYPROT XOCHITL, FACTOR II DNA, HOMOCYS PL, FACV LEIDM, PROCF, LIPA, LUPANTCOAG, PROT S FUN, METH, CARDIO GMA, AT3 DEF PROFILE #### [facility] , #### [id number], CBC, PHOS, BMP, FE PRO, MG #### [address] Kate Ag Negativeon 09-15-19 21 Kate Ag Negative Negative Normal Negative [facility] Comment on above: Result Comment: This is a duplicate Kate SARS Antigen (ADORE) result to be used for statistical tracking purpose only. PERFORMED BY: [place] [address] PATHOLOGIST DIGITAL MARKETING CONSULTANT TOBY GRACIA M.D. Performed By: #### B 2 GLYPROT XOCHITL, FACTOR II DNA, HOMOCYS PL, FACV LEIDM, PROCF, LIPA, LUPANTCOAG, PROT S FUN, METH, CARDIO GMA, AT3 DEF PROFILE #### [facility] , #### [id number], CBC, PHOS, BMP, FE PRO, MG #### [address] Basic Metabolic Panelon 08-18 Calcium [Mass/Vol] 9.3 mg/dL Normal 8.2-10.2 [facility] Comment on above: Performed By: #### B 2 GLYPROT XOCHITL, FACTOR II DNA, HOMOCYS PL, FACV LEIDM, PROCF, LIPA, LUPANTCOAG, PROT S FUN, METH, CARDIO GMA, AT3 DEF PROFILE #### [facility] , #### [id number], CBC, PHOS, BMP, FE PRO, MG #### [facility] [address] [place] [address] Chloride [Moles/Vol] 98 mmol/L Normal 95-114 [facility] Comment on above: Performed By: #### B 2 GLYPROT XOCHITL, FACTOR II DNA, HOMOCYS PL, FACV LEIDM, PROCF, LIPA, LUPANTCOAG, PROT S FUN, METH, CARDIO GMA, AT3 DEF PROFILE #### [facility] , #### [id number], CBC, PHOS, BMP, FE PRO, MG #### [facility] [address] [place] [address] CO2 [Moles/Vol] 24.1 mmol/L Normal 22.0-30.0 [facility] Comment on above: Performed By: #### B 2 GLYPROT XOCHITL, FACTOR II DNA, HOMOCYS PL, FACV LEIDM, PROCF, LIPA, LUPANTCOAG, PROT S FUN, METH, CARDIO GMA, AT3 DEF PROFILE #### [facility] , #### [id number], CBC, PHOS, BMP, FE PRO, MG #### [address] Creatinine [Mass/Vol] 1.53 mg/dL High 0.64-1.27 [facility] Comment on above: Performed By: #### B 2 GLYPROT XOCHITL, FACTOR II DNA, HOMOCYS PL, FACV LEIDM, PROCF, LIPA, LUPANTCOAG, PROT S FUN, METH, CARDIO GMA, AT3 DEF PROFILE #### [facility] , #### [id number], CBC, PHOS, BMP, FE PRO, MG #### [facility] [address] [place] [address] Creatinine Clr Calc Pharmacy 54.38 Normal [facility] Comment on above: Performed By: #### B 2 GLYPROT XOCHITL, FACTOR II DNA, HOMOCYS PL, FACV LEIDM, PROCF, LIPA, LUPANTCOAG, PROT S FUN, METH, CARDIO GMA, AT3 DEF PROFILE #### [facility] , #### [id number], CBC, PHOS, BMP, FE PRO, MG #### [facility] [address] [place] [address] Estimated GFR ( Gabriela 55 [facility] Comment on above: Result Comment: GFR estimated reference range: According to KDOQI guidelines, <60 ml/min/1.73m2 is sufficient to diagnose a patient with chronic kidney disease. Performed By: #### B 2 GLYPROT XOCHITL, FACTOR II DNA, HOMOCYS PL, FACV LEIDM, PROCF, LIPA, LUPANTCOAG, PROT S FUN, METH, CARDIO GMA, AT3 DEF PROFILE #### [facility] , #### [id number], CBC, PHOS, BMP, FE PRO, MG #### [address] Estimated GFR (Non- Am 45 [facility] Comment on above: Performed By: #### B 2 GLYPROT XOCHITL, FACTOR II DNA, HOMOCYS PL, FACV LEIDM, PROCF, LIPA, LUPANTCOAG, PROT S FUN, METH, CARDIO GMA, AT3 DEF PROFILE #### [facility] , #### [id number], CBC, PHOS, BMP, FE PRO, MG #### [address] Glucose [Mass/Vol] 200 mg/dL High 70-100 [facility] Comment on above: Result Comment: Maidens Glucose Reference Range is dependent on time and content of last meal. Glucose of more than 200 mg/dL in a nonstressed, ambulatory subject supports the diagnosis of Diabetes Mellitus. ADA recommended reference range Performed By: #### B 2 GLYPROT XOCHITL, FACTOR II DNA, HOMOCYS PL, FACV LEIDM, PROCF, LIPA, LUPANTCOAG, PROT S FUN, METH, CARDIO GMA, AT3 DEF PROFILE #### [facility] , #### [id number], CBC, PHOS, BMP, FE PRO, MG #### [address] Potassium [Moles/Vol] 4.4 mmol/L Normal 3.5-5.1 [facility] Comment on above: Performed By: #### B 2 GLYPROT XOCHITL, FACTOR II DNA, HOMOCYS PL, FACV LEIDM, PROCF, LIPA, LUPANTCOAG, PROT S FUN, METH, CARDIO GMA, AT3 DEF PROFILE #### [facility] , #### [id number], CBC, PHOS, BMP, FE PRO, MG #### [facility] [address] [place] [address] Sodium [Moles/Vol] 135 mmol/L Low 136-146 [facility] Comment on above: Performed By: #### B 2 GLYPROT XOCHITL, FACTOR II DNA, HOMOCYS PL, FACV LEIDM, PROCF, LIPA, LUPANTCOAG, PROT S FUN, METH, CARDIO GMA, AT3 DEF PROFILE #### [facility] , #### [id number], CBC, PHOS, BMP, FE PRO, MG #### [facility] [address] [place] [address] Urea nitrogen [Mass/Vol] 16 mg/dL Normal 9-23 [facility] Comment on above: Performed By: #### B 2 GLYPROT XOCHITL, FACTOR II DNA, HOMOCYS PL, FACV LEIDM, PROCF, LIPA, LUPANTCOAG, PROT S FUN, METH, CARDIO GMA, AT3 DEF PROFILE #### [facility] , #### [id number], CBC, PHOS, BMP, FE PRO, MG #### [facility] [address] [place] [address] COVID-19 Antigenon 1 COVID-19 Antigen Healthcare Worker?: N Kate Reference Kate Reference Negative SARS-CoV+SARS-CoV-2 (COVID-19) Ag [Presence] in Respiratory specimen by Rapid immunoassay Negative for SARS Antigen by ADORE COVID19 Blank Space Kate Disclaimer Negative results, from patients with symptom Kate Disclaimer onset beyond five days, should be treated as Kate Disclaimer presumptive and confirmation with a molecular Kate Disclaimer assay, if necessary, for patient management, Kate Disclaimer may be performed. Negative results do not rule Kate Disclaimer out COVID-19 and should not be used as the sole Kate Disclaimer basis for treatment or patient management Kate Disclaimer decisions, including infection control decisions. Kate Disclaimer Negative results should be considered in the Kate Disclaimer context of a patient's recent exposures, history Kate Disclaimer and the presence of clinical signs and symptoms Kate Disclaimer consistent with COVID-19. COVID19 Blank Space Kate Disclaimer The Kate SARS Antigen ADORE does not differentiate Kate Disclaimer between SARS-CoV and SARS-CoV-2. COVID19 Blank Space Kate Disclaimer This test was developed and its performance Kate Disclaimer characteristic determined by [employer] and Kate Disclaimer validated at [facility]. This Kate Disclaimer test has not been FDA cleared or approved. This Kate Disclaimer test has been authorized by FDA under an Emergency Use Kate Disclaimer Authorization (EUA). This test has been validated Kate Disclaimer in accordance with the FDA's Guidance Document (Policy Kate Disclaimer for Diagnostics Testing in Laboratories Certified to Kate Disclaimer Perform High Complexity Testing under CLIA prior to Kate Disclaimer Emergency Use Authorization for Coronavirus Kate Disclaimer isease-2018 during the Public Health Emergency) Kate Disclaimer issued on August 19, 2019. This test is only authorized Kate Disclaimer for the duration of time the declaration that Kate Disclaimer circumstances exist justifying the authorization of Kate Disclaimer the emergency use of in vitro diagnostic tests for Kate Disclaimer detection of SARS-CoV-2 virus and/or diagnosis of Kate Disclaimer COVID-19 infection under section 564(b)(1) of the Kate Disclaimer Act, 21 U.S.C. 360bbb-3(b)(1), unless the Kate Disclaimer authorization is terminated or revoked sooner. PERFORMED BY: [place] [address] PATHOLOGIST DIGITAL MARKETING CONSULTANT TOBY GRACIA M.D. [facility] Comment on above: Performed By: #### B 2 GLYPROT XOCHITL, FACTOR II DNA, HOMOCYS PL, FACV LEIDM, PROCF, LIPA, LUPANTCOAG, PROT S FUN, METH, CARDIO GMA, AT3 DEF PROFILE #### [facility] , #### [id number], CBC, PHOS, BMP, FE PRO, MG #### [facility] [address] [place] [address] CT abdomen pelvis w conon CT abdomen pelvis w con [facility] [place] [address] CT Scan Report Signed Patient: Don Elkins MR#: [id number] : 1950 Acct:[id number] Age/Sex: 70 / M ADM Date: 09/11/20 Loc: ER Room: Type: [facility] ER Attending Dr: Ordering Provider: Michele Gamino DO Date of Service: 09/11/20 CT/CT abdomen pelvis w con: abd pain Copies to: Michele Gamino DO CLINICAL HISTORY: Generalized abdominal pain, nausea, diarrhea, vomiting. CT ABDOMEN AND PELVIS WITH CONTRAST: COMPARISON: None TECHNIQUE: CT scans of the abdomen and pelvis were obtained following intravenous injection of 90 mL of Isovue-300 [without] enteric contrast. FINDINGS: The visualized lung bases show mild dependent atelectases bilaterally without pleural effusion. The liver is of normal size without focal mass or intrahepatic biliary dilatation. The gallbladder is surgically absent. The pancreas shows no focal mass or peripancreatic inflammation. The spleen and adrenal glands are of unremarkable size. Both kidneys show no hydronephrosis or radiopaque stone. There is a cortical cyst at the medial aspect of the upper portion of left kidney measuring 2.4 cm in diameter. No solid renal mass is identifiable. Both ureters are of unremarkable caliber and course without radiopaque stone. [The urinary bladder shows mild wall thickening posteriorly, nonspecific finding. There is no perivesical inflammation.] There is no free air in the abdomen or bowel obstruction. The patient is status post appendectomy. The stomach is unremarkable. There is no significant small bowel dilatation or mesenteric edema. Moderate amount of fecal material is present within the colon. No pericolonic inflammation is shown. Mild diverticulosis at the descending colon is noted. There is no ascites. A small fat- containing left inguinal hernia is shown. The abdominal aorta shows mild to moderate calcified atheromatous plaques without aneurysm. Bilateral iliac and proximal femoral arteries show mild calcified plaques]. There is no para-aortic lymphadenopathy. No prominent pelvic lymph node enlargement is demonstrated. Mild to moderate anterior osteophytosis is shown at the visualized lower thoracic spine and the lumbar spine. CT/CT abdomen pelvis w con IMPRESSION: MILD DIVERTICULOSIS AT THE DESCENDING COLON WITHOUT PERICOLONIC INFLAMMATION. NO FREE AIR IN THE ABDOMEN OR BOWEL OBSTRUCTION. NO OBSTRUCTIVE UROPATHY. MILD WALL THICKENING AT THE POSTERIOR ASPECT OF THE URINARY BLADDER, NONSPECIFIC FINDING. The CT exam was performed using one or more of the following dose reduction techniques: Automated exposure control, adjustment of the MA and/or Kv according to patient size, or use of the iterative reconstruction technique. Impression dictated by: Corbin Gaxiola M.D.09/11/2020 7:25 PM Dictation Location: [place] [address] Transcribed By: ANDREW 09/11/201924 Dictated By: Corbin Gaxiola MD 09/11/201910 Signed By: 09/11/201924 Normal [facility] Complete Blood Count Auto Di ffon 09-11-2020 Basophils (Bld) [#/Vol] 0.1 10*3/uL Normal 0.0-0.2 [facility] Comment on above: Result Comment: PERF ORMED BY: [place] [address] PATHOLOGIST DIGITAL MARKETING CONSULTANT TOBY GRACIA M.D. Performed By: #### B 2 GLYPROT XOCHITL, FACTOR II DNA, HOMOCYS PL, FACV LEIDM, PROCF, LIPA, LUPANTCOAG, PROT S FUN, METH, CARDIO GMA, AT3 DEF PROFILE #### [facility] , #### [id number], CBC, PHOS, BMP, FE PRO, MG #### [facility] [address] [place] [address] [place] Basophils/100 WBC (Bld) 1.2 % Normal . [facility] Comment on above: Performed By: #### B 2 GLYPROT XOCHITL, FACTOR II DNA, HOMOCYS PL, FACV LEIDM, PROCF, LIPA, LUPANTCOAG, PROT S FUN, METH, CARDIO GMA, AT3 DEF PROFILE #### [facility] , #### [id number], CBC, PHOS, BMP, FE PRO, MG #### [place] [address] [place] Eosinophils (Bld) [#/Vol] 0.3 10*3/uL Normal 0.0-0.45 [facility] Comment on above: Performed By: #### B 2 GLYPROT XOCHITL, FACTOR II DNA, HOMOCYS PL, FACV LEIDM, PROCF, LIPA, LUPANTCOAG, PROT S FUN, METH, CARDIO GMA, AT3 DEF PROFILE #### [facility] , #### [id number], CBC, PHOS, BMP, FE PRO, MG #### [facility] [address] [place] [address] [place] Eosinophils/100 WBC (Bld) 4.0 % Normal . [facility] Comment on above: Performed By: #### B 2 GLYPROT XOCHITL, FACTOR II DNA, HOMOCYS PL, FACV LEIDM, PROCF, LIPA, LUPANTCOAG, PROT S FUN, METH, CARDIO GMA, AT3 DEF PROFILE #### [facility] , #### [id number], CBC, PHOS, BMP, FE PRO, MG #### [address] Erythrocyte distribution width (RBC) [Ratio] 13.3 % Normal 12.0-14.8 [facility] Comment on above: Performed By: #### B 2 GLYPROT XOCHITL, FACTOR II DNA, HOMOCYS PL, FACV LEIDM, PROCF, LIPA, LUPANTCOAG, PROT S FUN, METH, CARDIO GMA, AT3 DEF PROFILE #### [facility] , #### [id number], CBC, PHOS, BMP, FE PRO, MG #### [address] Hematocrit (Bld) [Volume fraction] 41.6 % Normal 38.8-50.0 [facility] Comment on above: Performed By: #### B 2 GLYPROT XOCHITL, FACTOR II DNA, HOMOCYS PL, FACV LEIDM, PROCF, LIPA, LUPANTCOAG, PROT S FUN, METH, CARDIO GMA, AT3 DEF PROFILE #### [facility] , #### [id number], CBC, PHOS, BMP, FE PRO, MG #### [address] Hemoglobin (Bld) [Mass/Vol] 14.5 g/dL Normal 13.0-17.0 [facility] Comment on above: Performed By: #### B 2 GLYPROT XOCHITL, FACTOR II DNA, HOMOCYS PL, FACV LEIDM, PROCF, LIPA, LUPANTCOAG, PROT S FUN, METH, CARDIO GMA, AT3 DEF PROFILE #### [facility] , #### [id number], CBC, PHOS, BMP, FE PRO, MG #### [address] Lymphocytes (Bld) [#/Vol] 2.2 10*3/uL Normal 1.00-4.8 [facility] Comment on above: Performed By: #### B 2 GLYPROT XOCHITL, FACTOR II DNA, HOMOCYS PL, FACV LEIDM, PROCF, LIPA, LUPANTCOAG, PROT S FUN, METH, CARDIO GMA, AT3 DEF PROFILE #### [facility] , #### [id number], CBC, PHOS, BMP, FE PRO, MG #### [address] Lymphocytes/100 WBC (Bld) 25.8 % Normal . [facility] Comment on above: Performed By: #### B 2 GLYPROT XOCHITL, FACTOR II DNA, HOMOCYS PL, FACV LEIDM, PROCF, LIPA, LUPANTCOAG, PROT S FUN, METH, CARDIO GMA, AT3 DEF PROFILE #### [facility] , #### [id number], CBC, PHOS, BMP, FE PRO, MG #### [address] MCH (RBC) [Entitic mass] 31.5 pg Normal 27.5-35.2 [facility] Comment on above: Performed By: #### B 2 GLYPROT XOCHITL, FACTOR II DNA, HOMOCYS PL, FACV LEIDM, PROCF, LIPA, LUPANTCOAG, PROT S FUN, METH, CARDIO GMA, AT3 DEF PROFILE #### [facility] , #### [id number], CBC, PHOS, BMP, FE PRO, MG #### [address] MCV (RBC) [Entitic vol] 90.8 fL Normal 83.5-101 [facility] Comment on above: Performed By: #### B 2 GLYPROT XOCHITL, FACTOR II DNA, HOMOCYS PL, FACV LEIDM, PROCF, LIPA, LUPANTCOAG, PROT S FUN, METH, CARDIO GMA, AT3 DEF PROFILE #### [facility] , #### [id number], CBC, PHOS, BMP, FE PRO, MG #### [facility] [address] Mean Corpuscular HGB Conc 34.7 g/dL Normal 32.5-35.6 [facility] Comment on above: Performed By: #### B 2 GLYPROT XOCHITL, FACTOR II DNA, HOMOCYS PL, FACV LEIDM, PROCF, LIPA, LUPANTCOAG, PROT S FUN, METH, CARDIO GMA, AT3 DEF PROFILE #### [facility] , #### [id number], CBC, PHOS, BMP, FE PRO, MG #### [address] Monocytes (Bld) [#/Vol] 1.1 10*3/uL High 0.0-0.8 [facility] Comment on above: Performed By: #### B 2 GLYPROT XOCHITL, FACTOR II DNA, HOMOCYS PL, FACV LEIDM, PROCF, LIPA, LUPANTCOAG, PROT S FUN, METH, CARDIO GMA, AT3 DEF PROFILE #### [facility] , #### [id number], CBC, PHOS, BMP, FE PRO, MG #### [address] Monocytes/100 WBC (Bld) 12.4 % Normal . [facility] Comment on above: Performed By: #### B 2 GLYPROT XOCHITL, FACTOR II DNA, HOMOCYS PL, FACV LEIDM, PROCF, LIPA, LUPANTCOAG, PROT S FUN, METH, CARDIO GMA, AT3 DEF PROFILE #### [facility] , #### [id number], CBC, PHOS, BMP, FE PRO, MG #### [facility] [address] [place] [address] Neutrophils (Bld) [#/Vol] 4.8 10*3/uL Normal 1.8-7.7 [facility] Comment on above: Performed By: #### B 2 GLYPROT XOCHITL, FACTOR II DNA, HOMOCYS PL, FACV LEIDM, PROCF, LIPA, LUPANTCOAG, PROT S FUN, METH, CARDIO GMA, AT3 DEF PROFILE #### [facility] , #### [id number], CBC, PHOS, BMP, FE PRO, MG #### [address] Neutrophils/100 WBC (Bld) 56.6 % Normal . [facility] Comment on above: Performed By: #### B 2 GLYPROT XOCHITL, FACTOR II DNA, HOMOCYS PL, FACV LEIDM, PROCF, LIPA, LUPANTCOAG, PROT S FUN, METH, CARDIO GMA, AT3 DEF PROFILE #### [facility] , #### [id number], CBC, PHOS, BMP, FE PRO, MG #### [address] Nucleated RBC/100 WBC (Bld) [Ratio] 0.2 % Normal 0-0.5 [facility] Comment on above: Performed By: #### B 2 GLYPROT XOCHITL, FACTOR II DNA, HOMOCYS PL, FACV LEIDM, PROCF, LIPA, LUPANTCOAG, PROT S FUN, METH, CARDIO GMA, AT3 DEF PROFILE #### [facility] , #### [id number], CBC, PHOS, BMP, FE PRO, MG #### [address] Platelet mean volume (Bld) [Entitic vol] 10.0 fL Normal 6.6-10.1 [facility] Comment on above: Performed By: #### B 2 GLYPROT XOCHITL, FACTOR II DNA, HOMOCYS PL, FACV LEIDM, PROCF, LIPA, LUPANTCOAG, PROT S FUN, METH, CARDIO GMA, AT3 DEF PROFILE #### [facility] , #### [id number], CBC, PHOS, BMP, FE PRO, MG #### [place] [address] [place] Platelets (Bld) [#/Vol] 229 10*3/uL Normal 150-450 [facility] Comment on above: Performed By: #### B 2 GLYPROT XOCHITL, FACTOR II DNA, HOMOCYS PL, FACV LEIDM, PROCF, LIPA, LUPANTCOAG, PROT S FUN, METH, CARDIO GMA, AT3 DEF PROFILE #### [facility] , #### [id number], CBC, PHOS, BMP, FE PRO, MG #### [address] RBC (Bld) [#/Vol] 4.59 10*6/uL Normal 3.90-5.[address] [facility] Comment on above: Performed By: #### B 2 GLYPROT XOCHITL, FACTOR II DNA, HOMOCYS PL, FACV LEIDM, PROCF, LIPA, LUPANTCOAG, PROT S FUN, METH, CARDIO GMA, AT3 DEF PROFILE #### [facility] , #### [id number], CBC, PHOS, BMP, FE PRO, MG #### [address] WBC (Bld) [#/Vol] 8.5 10*3/uL Normal 4.5-11.0 [facility] Comment on above: Performed By: #### B 2 GLYPROT XOCHITL, FACTOR II DNA, HOMOCYS PL, FACV LEIDM, PROCF, LIPA, LUPANTCOAG, PROT S FUN, METH, CARDIO GMA, AT3 DEF PROFILE #### [facility] , #### [id number], CBC, PHOS, BMP, FE PRO, MG #### [address] ECG 12 lead ECGon 09-11-2020 ECG 12 lead ECG [facility] [place] [address] Electrocardiograph Report Signed Patient: Don Elkins MR#: [id number] : 1950 Acct:[id number] Age/Sex: 70 / M ADM Date: 09/11/20 Loc: ER Room: Type: [facility] ER Attending Dr: Ordering Provider: Michele Gamino DO Date of Service: 09/11/20 ECG/ECG 12 lead ECG: Abdominal Pain Copies to: Test Reason : Blood Pressure : / mmHG Vent. Rate : 095 BPM Atrial Rate : 095 BPM P-R Int : 148 ms QRS Dur : 082 ms QT Int : 342 ms P-R-T Axes : 062 -04 066 degrees QTc Int : 429 ms Normal sinus rhythm Normal ECG When compared with ECG of 17-MAR-2018 15:40, No significant change was found Confirmed by Michele GAMINO DO ([id number]) on 09/11/2020 7:48:19 PM Referred By: Electronically Signed By:Michele GAMINO DO Transcribed By: MUS Dictated By: Michele Gamino DO 09/11/201738 Signed By: 09/11/201947 [facility] Hepatic Panelon 09-11-2020 Albumin [Mass/Vol] 3.4 g/dL Normal 3.2-5.5 [facility] Comment on above: Performed By: #### B 2 GLYPROT XOCHITL, FACTOR II DNA, HOMOCYS PL, FACV LEIDM, PROCF, LIPA, LUPANTCOAG, PROT S FUN, METH, CARDIO GMA, AT3 DEF PROFILE #### [facility] , #### [id number], CBC, PHOS, BMP, FE PRO, MG #### [facility] [address] [place] [address] Albumin/Globulin [Mass ratio] 1.3 {ratio} [facility] Comment on above: Performed By: #### B 2 GLYPROT XOCHITL, FACTOR II DNA, HOMOCYS PL, FACV LEIDM, PROCF, LIPA, LUPANTCOAG, PROT S FUN, METH, CARDIO GMA, AT3 DEF PROFILE #### [facility] , #### [id number], CBC, PHOS, BMP, FE PRO, MG #### [facility] [address] ALP [Catalytic activity/Vol] 45 U/L Normal 32-92 [facility] Comment on above: Performed By: #### B 2 GLYPROT XOCHITL, FACTOR II DNA, HOMOCYS PL, FACV LEIDM, PROCF, LIPA, LUPANTCOAG, PROT S FUN, METH, CARDIO GMA, AT3 DEF PROFILE #### [facility] , #### [id number], CBC, PHOS, BMP, FE PRO, MG #### [address] ALT [Catalytic activity/Vol] 152 U/L High 10-60 [facility] Comment on above: Performed By: #### B 2 GLYPROT XOCHITL, FACTOR II DNA, HOMOCYS PL, FACV LEIDM, PROCF, LIPA, LUPANTCOAG, PROT S FUN, METH, CARDIO GMA, AT3 DEF PROFILE #### [facility] , #### [id number], CBC, PHOS, BMP, FE PRO, MG #### [address] AST [Catalytic activity/Vol] 64 U/L High 10-42 [facility] Comment on above: Performed By: #### B 2 GLYPROT XOCHITL, FACTOR II DNA, HOMOCYS PL, FACV LEIDM, PROCF, LIPA, LUPANTCOAG, PROT S FUN, METH, CARDIO GMA, AT3 DEF PROFILE #### [facility] , #### [id number], CBC, PHOS, BMP, FE PRO, MG #### [address] Bilirubin [Mass/Vol] 1.6 mg/dL High 0.3-1.2 [facility] Comment on above: Result Comment: Samp les from patients who have taken Naproxen have shown spurious elevation in Total Bilirubin levels. A metabolite of Naproxen, O-desmethylnaproxen, has been shown to interfere with the Valdo-Priyank method for measuring Total Bilirubin. Performed By: #### B 2 GLYPROT XOCHITL, FACTOR II DNA, HOMOCYS PL, FACV LEIDM, PROCF, LIPA, LUPANTCOAG, PROT S FUN, METH, CARDIO GMA, AT3 DEF PROFILE #### [facility] , #### [id number], CBC, PHOS, BMP, FE PRO, MG #### [facility] [address] [place] [address] Bilirubin,Indirec t 1.4 mg/dL Normal [facility] Comment on above: Performed By: #### B 2 GLYPROT XOCHITL, FACTOR II DNA, HOMOCYS PL, FACV LEIDM, PROCF, LIPA, LUPANTCOAG, PROT S FUN, METH, CARDIO GMA, AT3 DEF PROFILE #### [facility] , #### [id number], CBC, PHOS, BMP, FE PRO, MG #### [address] Bilirubin.indirec t [Mass/Vol] 0.2 mg/dL Normal 0.0-0.4 [facility] Comment on above: Performed By: #### B 2 GLYPROT XOCHITL, FACTOR II DNA, HOMOCYS PL, FACV LEIDM, PROCF, LIPA, LUPANTCOAG, PROT S FUN, METH, CARDIO GMA, AT3 DEF PROFILE #### [facility] , #### [id number], CBC, PHOS, BMP, FE PRO, MG #### [address] Globulin (S) [Mass/Vol] 2.6 g/dL [facility] Comment on above: Performed By: #### B 2 GLYPROT XOCHITL, FACTOR II DNA, HOMOCYS PL, FACV LEIDM, PROCF, LIPA, LUPANTCOAG, PROT S FUN, METH, CARDIO GMA, AT3 DEF PROFILE #### [facility] , #### [id number], CBC, PHOS, BMP, FE PRO, MG #### [address] Protein [Mass/Vol] 6.0 g/dL Low 6.1-7.9 [facility] Comment on above: Performed By: #### B 2 GLYPROT XOCHITL, FACTOR II DNA, HOMOCYS PL, FACV LEIDM, PROCF, LIPA, LUPANTCOAG, PROT S FUN, METH, CARDIO GMA, AT3 DEF PROFILE #### [facility] , #### [id number], CBC, PHOS, BMP, FE PRO, MG #### [address] Lipaseon 09-11-2020 Lipase [Catalytic activity/Vol] 60.0 U/L High 22- [facility] Comment on above: Result Comment: PERF ORMED BY: [place] [address] PATHOLOGIST DIGITAL MARKETING CONSULTANT TOBY GRACIA M.D. Performed By: #### B 2 GLYPROT XOCHITL, FACTOR II DNA, HOMOCYS PL, FACV LEIDM, PROCF, LIPA, LUPANTCOAG, PROT S FUN, METH, CARDIO GMA, AT3 DEF PROFILE #### [facility] , #### [id number], CBC, PHOS, BMP, FE PRO, MG #### [address] Partial Thromboplastin Timeo n 09-11-2020 aPTT Coag (Bld) [Time] 32.5 s Normal 25.1-36.5 [facility] Comment on above: Result Comment: PERF ORMED BY: [place] [address] PATHOLOGIST DIGITAL MARKETING CONSULTANT TOBY GRACIA M.D. Performed By: #### B 2 GLYPROT XOCHITL, FACTOR II DNA, HOMOCYS PL, FACV LEIDM, PROCF, LIPA, LUPANTCOAG, PROT S FUN, METH, CARDIO GMA, AT3 DEF PROFILE #### [facility] , #### [id number], CBC, PHOS, BMP, FE PRO, MG #### [place] [id number] [place] Prothrombin Time INRon 09-11 INR Coag (PPP) [Relative time] 2.0 {INR} Normal [facility] Comment on above: Result Comment: INR Therapeutic Range A) Pre- and Peroperative OAT started two weeks before surgery. NOT HIP SURGERY: 1.5 - 2.5 HIP SURGERY: 2 - 3 B) Primary and secondary prevention of venous THROMBOSIS: 2 - 3 C) Active venous thrombosis, pulmonary embolism and prevention of recurrent venous thrombosis: 2 - 3 D) Prevention of arterial thromboembolism including patients with mechanical heart valves: 3 - 4.5 Performed By: #### B 2 GLYPROT XOCHITL, FACTOR II DNA, HOMOCYS PL, FACV LEIDM, PROCF, LIPA, LUPANTCOAG, PROT S FUN, METH, CARDIO GMA, AT3 DEF PROFILE #### [facility] , #### [id number], CBC, PHOS, BMP, FE PRO, MG #### [facility] [address] [place] [address] PT Coag (PPP) [Time] 22.4 s High 9.0-12.9 [facility] Comment on above: Performed By: #### B 2 GLYPROT XOCHITL, FACTOR II DNA, HOMOCYS PL, FACV LEIDM, PROCF, LIPA, LUPANTCOAG, PROT S FUN, METH, CARDIO GMA, AT3 DEF PROFILE #### [facility] , #### [id number], CBC, PHOS, BMP, FE PRO, MG #### [facility] [address] [place] [address] Kate Ag Negativeon 09-12-19 21 Kate Ag Negative Negative Normal Negative [facility] Comment on above: Result Comment: This is a duplicate Kate SARS Antigen (ADORE) result to be used for statistical tracking purpose only. PERFORMED BY: [place] [address] PATHOLOGIST DIGITAL MARKETING CONSULTANT TOBY GRACIA M.D. Performed By: #### B 2 GLYPROT XOCHITL, FACTOR II DNA, HOMOCYS PL, FACV LEIDM, PROCF, LIPA, LUPANTCOAG, PROT S FUN, METH, CARDIO GMA, AT3 DEF PROFILE #### [facility] , #### [id number], CBC, PHOS, BMP, FE PRO, MG #### [address] Troponin I(TnI)on 09-11-2020 Troponin I.cardiac [Mass/Vol] ng/mL Normal 0-0.02 [facility] Comment on above: Result Comment: SHYLA DC Cut off value > or equal to 0.03 ng/mL in conjunction with clinical conditions of myocardial infarction. ([email or web address]) PERFORMED BY: [place] [address] PATHOLOGIST DIGITAL MARKETING CONSULTANT TOBY GRACIA M.D. Performed By: #### B 2 GLYPROT XOCHITL, FACTOR II DNA, HOMOCYS PL, FACV LEIDM, PROCF, LIPA, LUPANTCOAG, PROT S FUN, METH, CARDIO GMA, AT3 DEF PROFILE #### [facility] , #### [id number], CBC, PHOS, BMP, FE PRO, MG #### [facility] [address] [place] [address] Urinalysison 09-11-2020 Appearance (U) Clear Normal Clear [facility] Comment on above: Order Comment: PT IS NON FASTING Performed By: #### B 2 GLYPROT XOCHITL, FACTOR II DNA, HOMOCYS PL, FACV LEIDM, PROCF, LIPA, LUPANTCOAG, PROT S FUN, METH, CARDIO GMA, AT3 DEF PROFILE #### [facility] , #### [id number], CBC, PHOS, BMP, FE PRO, MG #### [facility] [address] [place] [address] Bilirubin,Urine Negative Normal Negative [facility] Comment on above: Order Comment: PT IS NON FASTING Performed By: #### B 2 GLYPROT XOCHITL, FACTOR II DNA, HOMOCYS PL, FACV LEIDM, PROCF, LIPA, LUPANTCOAG, PROT S FUN, METH, CARDIO GMA, AT3 DEF PROFILE #### [facility] , #### [id number], CBC, PHOS, BMP, FE PRO, MG #### [facility] [address] Color (U) Yellow Normal Yellow [facility] Comment on above: Order Comment: PT IS NON FASTING Performed By: #### B 2 GLYPROT XOCHITL, FACTOR II DNA, HOMOCYS PL, FACV LEIDM, PROCF, LIPA, LUPANTCOAG, PROT S FUN, METH, CARDIO GMA, AT3 DEF PROFILE #### [facility] , #### [id number], CBC, PHOS, BMP, FE PRO, MG #### [address] Glucose Ql (U) Normal Normal Normal [facility] Comment on above: Order Comment: PT IS NON FASTING Performed By: #### B 2 GLYPROT XOCHITL, FACTOR II DNA, HOMOCYS PL, FACV LEIDM, PROCF, LIPA, LUPANTCOAG, PROT S FUN, METH, CARDIO GMA, AT3 DEF PROFILE #### [facility] , #### [id number], CBC, PHOS, BMP, FE PRO, MG #### [facility] [address] [place] [address] Ketones Ql (U) Negative Normal Negative [facility] Comment on above: Order Comment: PT IS NON FASTING Performed By: #### B 2 GLYPROT XOCHITL, FACTOR II DNA, HOMOCYS PL, FACV LEIDM, PROCF, LIPA, LUPANTCOAG, PROT S FUN, METH, CARDIO GMA, AT3 DEF PROFILE #### [facility] , #### [id number], CBC, PHOS, BMP, FE PRO, MG #### [facility] [address] [place] [address] Leukocyte esterase Test strip Ql (U) Negative Normal Negative [facility] Comment on above: Order Comment: PT IS NON FASTING Performed By: #### B 2 GLYPROT XOCHITL, FACTOR II DNA, HOMOCYS PL, FACV LEIDM, PROCF, LIPA, LUPANTCOAG, PROT S FUN, METH, CARDIO GMA, AT3 DEF PROFILE #### [facility] , #### [id number], CBC, PHOS, BMP, FE PRO, MG #### [address] Nitrite,Urine Negative Normal Negative [facility] Comment on above: Order Comment: PT IS NON FASTING Performed By: #### B 2 GLYPROT XOCHITL, FACTOR II DNA, HOMOCYS PL, FACV LEIDM, PROCF, LIPA, LUPANTCOAG, PROT S FUN, METH, CARDIO GMA, AT3 DEF PROFILE #### [facility] , #### [id number], CBC, PHOS, BMP, FE PRO, MG #### [address] Occult Blood,Urine Negative Normal Negative [facility] Comment on above: Order Comment: PT IS NON FASTING Result Comment: PERF ORMED BY: [place] [address] PATHOLOGIST DIGITAL MARKETING CONSULTANT TOBY GRACIA M.D. Performed By: #### B 2 GLYPROT XOCHITL, FACTOR II DNA, HOMOCYS PL, FACV LEIDM, PROCF, LIPA, LUPANTCOAG, PROT S FUN, METH, CARDIO GMA, AT3 DEF PROFILE #### [facility] , #### [id number], CBC, PHOS, BMP, FE PRO, MG #### [address] pH (U) 5.0 [pH] Normal 5.0-9.0 [facility] Comment on above: Order Comment: PT IS NON FASTING Performed By: #### B 2 GLYPROT XOCHITL, FACTOR II DNA, HOMOCYS PL, FACV LEIDM, PROCF, LIPA, LUPANTCOAG, PROT S FUN, METH, CARDIO GMA, AT3 DEF PROFILE #### [facility] , #### [id number], CBC, PHOS, BMP, FE PRO, MG #### [address] Protein,Urine Negative Normal Negative [facility] Comment on above: Order Comment: PT IS NON FASTING Performed By: #### B 2 GLYPROT XOCHITL, FACTOR II DNA, HOMOCYS PL, FACV LEIDM, PROCF, LIPA, LUPANTCOAG, PROT S FUN, METH, CARDIO GMA, AT3 DEF PROFILE #### [facility] , #### [id number], CBC, PHOS, BMP, FE PRO, MG #### [facility] [address] [place] [address] Specificy Hensley,Urine 1.026 Normal 1.001-1.030 [facility] Comment on above: Order Comment: PT IS NON FASTING Performed By: #### B 2 GLYPROT XOCHITL, FACTOR II DNA, HOMOCYS PL, FACV LEIDM, PROCF, LIPA, LUPANTCOAG, PROT S FUN, METH, CARDIO GMA, AT3 DEF PROFILE #### [facility] , #### [id number], CBC, PHOS, BMP, FE PRO, MG #### [facility] [address] [place] [address] Urobilinogen,Urin e Normal Normal Normal [facility] Comment on above: Order Comment: PT IS NON FASTING Performed By: #### B 2 GLYPROT XOCHITL, FACTOR II DNA, HOMOCYS PL, FACV LEIDM, PROCF, LIPA, LUPANTCOAG, PROT S FUN, METH, CARDIO GMA, AT3 DEF PROFILE #### [facility] , #### [id number], CBC, PHOS, BMP, FE PRO, MG #### [facility] [address] [place] [address] [place] XR hand BI 3Von 07-26-2020 XR hand BI 3V [facility] [place] [address] XRay Report Signed Patient: Don Elkins MR#: [id number] : 1950 Acct:[id number] Age/Sex: 69 / M ADM Date: 07/26/20 Loc: [facility] Room: Type: [facility] Attending Dr: Tamiko Rivera MD Ordering Provider: Tamiko Rivera MD Date of Service: 07/26/20 XR/XR hand BI 3V: Pain in left hand;Pain in right hand Copies to: Tamiko Rivera MD Bilateral hands 07/26/2020. CLINICAL DATA: Bilateral hand pain and weakness. FINDINGS: 3 views of both hands were obtained along with a dedicated view of both first carpal- metacarpal joints. No acute fracture or dislocation is identified. Relatively mild generalized osteoarthritic changes are seen in both wrists and both hands. No advanced degenerative changes are visualized. No bony erosion or destruction is noted. Both lunates demonstrate mild dorsal tilting. No localized soft tissue swelling is identified. Vascular calcification is seen. 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 Impression dictated by: Cale [place] Jr., M.D.07/26/2020 1:18 PM Dictation Location: [place] [address] Transcribed By: [facility] 07/26/20 1318 Dictated By: Cale [place] Jr, MD 07/26/201310 Signed By: 07/26/20 1318 Normal [facility] Anticardiolipin IgG/M/A, Qno n 07-18-2020 Anticardiolipin Ab, IgA,Qn <9 Normal 0-11 [facility] Comment on above: Order Comment: PT IS NON FASTING Result Comment: Nega tive: <12 Indeterminate: 12 - 20 Low-Med Positive: >20 - 80 High Positive: >80 Performed at: - [facility] [address] [id number] Hydraulic Jack Operator: Prakash Barbour PhD, Phone: [phone] Performed By: #### B 2 GLYPROT XOCHITL, FACTOR II DNA, HOMOCYS PL, FACV LEIDM, PROCF, LIPA, LUPANTCOAG, PROT S FUN, METH, CARDIO GMA, AT3 DEF PROFILE #### [facility] , #### [id number], CBC, PHOS, BMP, FE PRO, MG #### [facility] [address] [place] [id number] [facility] Anticardiolipin Ab, IgG,Qn <9 Normal 0-14 [facility] Comment on above: Order Comment: PT IS NON FASTING Result Comment: Nega tive: <15 Indeterminate: 15 - 20 Low-Med Positive: >20 - 80 High Positive: >80 Performed By: #### B 2 GLYPROT XOCHITL, FACTOR II DNA, HOMOCYS PL, FACV LEIDM, PROCF, LIPA, LUPANTCOAG, PROT S FUN, METH, CARDIO GMA, AT3 DEF PROFILE #### [facility] , #### [id number], CBC, PHOS, BMP, FE PRO, MG #### [facility] [address] [place] [address] Anticardiolipin Ab, IgM,Qn <9 Normal 0-12 [facility] Comment on above: Order Comment: PT IS NON FASTING Result Comment: Nega tive: <13 Indeterminate: 13 - 20 Low-Med Positive: >20 - 80 High Positive: >80 Performed By: #### B 2 GLYPROT XOCHITL, FACTOR II DNA, HOMOCYS PL, FACV LEIDM, PROCF, LIPA, LUPANTCOAG, PROT S FUN, METH, CARDIO GMA, AT3 DEF PROFILE #### [facility] , #### [id number], CBC, PHOS, BMP, FE PRO, MG #### [facility] [address] [place] [address] Antithrombin Deficiency Prof on 07-18-2020 Anti-Thrombin III Antigen 85 % Normal 72-124 [facility] Comment on above: Order Comment: PT IS NON FASTING Result Comment: This test was developed and its performance characteristics determined by [facility]. It has not been cleared or approved by the Food and Drug Administration. Performed By: #### B 2 GLYPROT XOCHITL, FACTOR II DNA, HOMOCYS PL, FACV LEIDM, PROCF, LIPA, LUPANTCOAG, PROT S FUN, METH, CARDIO GMA, AT3 DEF PROFILE #### [facility] , #### [id number], CBC, PHOS, BMP, FE PRO, MG #### [address] Antithrombin Activity 106 % Normal 75-135 [facility] Comment on above: Order Comment: PT IS NON FASTING Result Comment: Dire ct Xa inhibitor anticoagulants such as rivaroxaban, apixaban and edoxaban will lead to spuriously elevated antithrombin activity levels possibly masking a deficiency. Performed By: #### B 2 GLYPROT XOCHITL, FACTOR II DNA, HOMOCYS PL, FACV LEIDM, PROCF, LIPA, LUPANTCOAG, PROT S FUN, METH, CARDIO GMA, AT3 DEF PROFILE #### [facility] , #### [id number], CBC, PHOS, BMP, FE PRO, MG #### [address] Basic Metabolic Panelon 03-0 Calcium [Mass/Vol] 8.8 mg/dL Normal 8.2-10.2 [facility] Comment on above: Order Comment: PT IS NON FASTING Performed By: #### B 2 GLYPROT XOCHITL, FACTOR II DNA, HOMOCYS PL, FACV LEIDM, PROCF, LIPA, LUPANTCOAG, PROT S FUN, METH, CARDIO GMA, AT3 DEF PROFILE #### [facility] , #### [id number], CBC, PHOS, BMP, FE PRO, MG #### [address] Chloride [Moles/Vol] 96 mmol/L Normal 95-114 [facility] Comment on above: Order Comment: PT IS NON FASTING Performed By: #### B 2 GLYPROT XOCHITL, FACTOR II DNA, HOMOCYS PL, FACV LEIDM, PROCF, LIPA, LUPANTCOAG, PROT S FUN, METH, CARDIO GMA, AT3 DEF PROFILE #### [facility] , #### [id number], CBC, PHOS, BMP, FE PRO, MG #### [address] CO2 [Moles/Vol] 23.9 mmol/L Normal 22.0-30.0 [facility] Comment on above: Order Comment: PT IS NON FASTING Performed By: #### B 2 GLYPROT XOCHITL, FACTOR II DNA, HOMOCYS PL, FACV LEIDM, PROCF, LIPA, LUPANTCOAG, PROT S FUN, METH, CARDIO GMA, AT3 DEF PROFILE #### [facility] , #### [id number], CBC, PHOS, BMP, FE PRO, MG #### [facility] [address] Creatinine [Mass/Vol] 1.31 mg/dL High 0.64-1.27 [facility] Comment on above: Order Comment: PT IS NON FASTING Performed By: #### B 2 GLYPROT XOCHITL, FACTOR II DNA, HOMOCYS PL, FACV LEIDM, PROCF, LIPA, LUPANTCOAG, PROT S FUN, METH, CARDIO GMA, AT3 DEF PROFILE #### [facility] , #### [id number], CBC, PHOS, BMP, FE PRO, MG #### [facility] [address] Estimated GFR ( Gabriela > 60 [facility] Comment on above: Order Comment: PT IS NON FASTING Result Comment: GFR estimated reference range: According to KDOQI guidelines, <60 ml/min/1.73m2 is sufficient to diagnose a patient with chronic kidney disease. Performed By: #### B 2 GLYPROT XOCHITL, FACTOR II DNA, HOMOCYS PL, FACV LEIDM, PROCF, LIPA, LUPANTCOAG, PROT S FUN, METH, CARDIO GMA, AT3 DEF PROFILE #### [facility] , #### [id number], CBC, PHOS, BMP, FE PRO, MG #### [facility] [address] Estimated GFR (Non- Am 54 [facility] Comment on above: Order Comment: PT IS NON FASTING Performed By: #### B 2 GLYPROT XOCHITL, FACTOR II DNA, HOMOCYS PL, FACV LEIDM, PROCF, LIPA, LUPANTCOAG, PROT S FUN, METH, CARDIO GMA, AT3 DEF PROFILE #### [facility] , #### [id number], CBC, PHOS, BMP, FE PRO, MG #### [facility] [address] [place] [address] [place] Glucose [Mass/Vol] 336 mg/dL High 70-100 [facility] Comment on above: Order Comment: PT IS NON FASTING Result Comment: [facility] Glucose Reference Range is dependent on time and content of last meal. Glucose of more than 200 mg/dL in a nonstressed, ambulatory subject supports the diagnosis of Diabetes Mellitus. ADA recommended reference range Performed By: #### B 2 GLYPROT XOCHITL, FACTOR II DNA, HOMOCYS PL, FACV LEIDM, PROCF, LIPA, LUPANTCOAG, PROT S FUN, METH, CARDIO GMA, AT3 DEF PROFILE #### [facility] , #### [id number], CBC, PHOS, BMP, FE PRO, MG #### [facility] [address] [place] [address] Potassium [Moles/Vol] 4.7 mmol/L Normal 3.5-5.1 [facility] Comment on above: Order Comment: PT IS NON FASTING Performed By: #### B 2 GLYPROT XOCHITL, FACTOR II DNA, HOMOCYS PL, FACV LEIDM, PROCF, LIPA, LUPANTCOAG, PROT S FUN, METH, CARDIO GMA, AT3 DEF PROFILE #### [facility] , #### [id number], CBC, PHOS, BMP, FE PRO, MG #### [facility] [address] [place] [address] [place] Sodium [Moles/Vol] 131 mmol/L Low 136-146 [facility] Comment on above: Order Comment: PT IS NON FASTING Performed By: #### B 2 GLYPROT XOCHITL, FACTOR II DNA, HOMOCYS PL, FACV LEIDM, PROCF, LIPA, LUPANTCOAG, PROT S FUN, METH, CARDIO GMA, AT3 DEF PROFILE #### [facility] , #### [id number], CBC, PHOS, BMP, FE PRO, MG #### [facility] [address] [place] [address] [place] Urea nitrogen [Mass/Vol] 22 mg/dL Normal 9-23 [facility] Comment on above: Order Comment: PT IS NON FASTING Performed By: #### B 2 GLYPROT XOCHITL, FACTOR II DNA, HOMOCYS PL, FACV LEIDM, PROCF, LIPA, LUPANTCOAG, PROT S FUN, METH, CARDIO GMA, AT3 DEF PROFILE #### [facility] , #### [id number], CBC, PHOS, BMP, FE PRO, MG #### [facility] [address] [place] [id number] [place] Beta 2 Glycoprotein I Ab IgG Kenna 07-18-2020 Beta 2 Glycoprotein I Ab, IgA <9 Normal 0-25 [facility] Comment on above: Order Comment: PT IS NON FASTING Result Comment: Resu lt Units: GPI IgA units The reference interval reflects a 3SD or 99th percentile interval, which is thought to represent a potentially clinically significant result in accordance with the International Consensus Statement on the classification criteria for definitive antiphospholipid syndrome (APS). J Thromb Haem 2006;4:295-306. Performed By: #### B 2 GLYPROT XOCHITL, FACTOR II DNA, HOMOCYS PL, FACV LEIDM, PROCF, LIPA, LUPANTCOAG, PROT S FUN, METH, CARDIO GMA, AT3 DEF PROFILE #### [facility] , #### [id number], CBC, PHOS, BMP, FE PRO, MG #### [facility] [address] [place] [id number] [place] Beta 2 Glycoprotein I Ab, IgG <9 Normal 0-20 [facility] Comment on above: Order Comment: PT IS NON FASTING Result Comment: Resu lt Units: GPI IgG units The reference interval reflects a 3SD or 99th percentile interval, which is thought to represent a potentially clinically significant result in accordance with the International Consensus Statement on the classification criteria for definitive antiphospholipid syndrome (APS). J Thromb Haem 2006;4:295-306. Performed By: #### B 2 GLYPROT XOCHITL, FACTOR II DNA, HOMOCYS PL, FACV LEIDM, PROCF, LIPA, LUPANTCOAG, PROT S FUN, METH, CARDIO GMA, AT3 DEF PROFILE #### [facility] , #### [id number], CBC, PHOS, BMP, FE PRO, MG #### [facility] [address] Beta 2 Glycoprotein I Ab, IgM <9 Normal 0-32 [facility] Comment on above: Order Comment: PT IS NON FASTING Result Comment: Resu lt Units: GPI IgM units The reference interval reflects a 3SD or 99th percentile interval, which is thought to represent a potentially clinically significant result in accordance with the International Consensus Statement on the classification criteria for definitive antiphospholipid syndrome (APS). J Thromb Haem 2006;4:295-306. Performed at: [address] [id number] Hydraulic Jack Operator: Meet Parish MD, Phone: [phone] Performed By: #### B 2 GLYPROT XOCHITL, FACTOR II DNA, HOMOCYS PL, FACV LEIDM, PROCF, LIPA, LUPANTCOAG, PROT S FUN, METH, CARDIO GMA, AT3 DEF PROFILE #### [facility] , #### [id number], CBC, PHOS, BMP, FE PRO, MG #### [facility] [address] Complete Blood Count Auto Di ffon 07-18-2020 Basophils (Bld) [#/Vol] 0.1 10*3/uL Normal 0.0-0.2 [facility] Comment on above: Order Comment: PT IS NON FASTING Result Comment: PERF ORMED BY: [place] [address] PATHOLOGIST DIGITAL MARKETING CONSULTANT TOBY GRACIA M.D. Performed By: #### B 2 GLYPROT XOCHITL, FACTOR II DNA, HOMOCYS PL, FACV LEIDM, PROCF, LIPA, LUPANTCOAG, PROT S FUN, METH, CARDIO GMA, AT3 DEF PROFILE #### [facility] , #### [id number], CBC, PHOS, BMP, FE PRO, MG #### [facility] [address] [place] [address] Basophils/100 WBC (Bld) 0.8 % Normal . [facility] Comment on above: Order Comment: PT IS NON FASTING Performed By: #### B 2 GLYPROT XOCHITL, FACTOR II DNA, HOMOCYS PL, FACV LEIDM, PROCF, LIPA, LUPANTCOAG, PROT S FUN, METH, CARDIO GMA, AT3 DEF PROFILE #### [facility] , #### [id number], CBC, PHOS, BMP, FE PRO, MG #### [address] Eosinophils (Bld) [#/Vol] 0.2 10*3/uL Normal 0.0-0.45 [facility] Comment on above: Order Comment: PT IS NON FASTING Performed By: #### B 2 GLYPROT XOCHITL, FACTOR II DNA, HOMOCYS PL, FACV LEIDM, PROCF, LIPA, LUPANTCOAG, PROT S FUN, METH, CARDIO GMA, AT3 DEF PROFILE #### [facility] , #### [id number], CBC, PHOS, BMP, FE PRO, MG #### [address] Eosinophils/100 WBC (Bld) 2.2 % Normal . [facility] Comment on above: Order Comment: PT IS NON FASTING Performed By: #### B 2 GLYPROT XOCHITL, FACTOR II DNA, HOMOCYS PL, FACV LEIDM, PROCF, LIPA, LUPANTCOAG, PROT S FUN, METH, CARDIO GMA, AT3 DEF PROFILE #### [facility] , #### [id number], CBC, PHOS, BMP, FE PRO, MG #### [address] Erythrocyte distribution width (RBC) [Ratio] 12.6 % Normal 12.0-14.8 [facility] Comment on above: Order Comment: PT IS NON FASTING Performed By: #### B 2 GLYPROT XOCHITL, FACTOR II DNA, HOMOCYS PL, FACV LEIDM, PROCF, LIPA, LUPANTCOAG, PROT S FUN, METH, CARDIO GMA, AT3 DEF PROFILE #### [facility] , #### [id number], CBC, PHOS, BMP, FE PRO, MG #### [address] Hematocrit (Bld) [Volume fraction] 40.3 % Normal 38.8-50.0 [facility] Comment on above: Order Comment: PT IS NON FASTING Performed By: #### B 2 GLYPROT XOCHITL, FACTOR II DNA, HOMOCYS PL, FACV LEIDM, PROCF, LIPA, LUPANTCOAG, PROT S FUN, METH, CARDIO GMA, AT3 DEF PROFILE #### [facility] , #### [id number], CBC, PHOS, BMP, FE PRO, MG #### [address] Hemoglobin (Bld) [Mass/Vol] 13.9 g/dL Normal 13.0-17.0 [facility] Comment on above: Order Comment: PT IS NON FASTING Performed By: #### B 2 GLYPROT XOCHITL, FACTOR II DNA, HOMOCYS PL, FACV LEIDM, PROCF, LIPA, LUPANTCOAG, PROT S FUN, METH, CARDIO GMA, AT3 DEF PROFILE #### [facility] , #### [id number], CBC, PHOS, BMP, FE PRO, MG #### [address] Lymphocytes (Bld) [#/Vol] 2.0 10*3/uL Normal 1.00-4.8 [facility] Comment on above: Order Comment: PT IS NON FASTING Performed By: #### B 2 GLYPROT XOCHITL, FACTOR II DNA, HOMOCYS PL, FACV LEIDM, PROCF, LIPA, LUPANTCOAG, PROT S FUN, METH, CARDIO GMA, AT3 DEF PROFILE #### [facility] , #### [id number], CBC, PHOS, BMP, FE PRO, MG #### [address] Lymphocytes/100 WBC (Bld) 21.0 % Normal . [facility] Comment on above: Order Comment: PT IS NON FASTING Performed By: #### B 2 GLYPROT XOCHITL, FACTOR II DNA, HOMOCYS PL, FACV LEIDM, PROCF, LIPA, LUPANTCOAG, PROT S FUN, METH, CARDIO GMA, AT3 DEF PROFILE #### [facility] , #### [id number], CBC, PHOS, BMP, FE PRO, MG #### [address] MCH (RBC) [Entitic mass] 31.4 pg Normal 27.5-35.2 [facility] Comment on above: Order Comment: PT IS NON FASTING Performed By: #### B 2 GLYPROT XOCHITL, FACTOR II DNA, HOMOCYS PL, FACV LEIDM, PROCF, LIPA, LUPANTCOAG, PROT S FUN, METH, CARDIO GMA, AT3 DEF PROFILE #### [facility] , #### [id number], CBC, PHOS, BMP, FE PRO, MG #### [address] MCV (RBC) [Entitic vol] 91.1 fL Normal 83.5-101 [facility] Comment on above: Order Comment: PT IS NON FASTING Performed By: #### B 2 GLYPROT XOCHITL, FACTOR II DNA, HOMOCYS PL, FACV LEIDM, PROCF, LIPA, LUPANTCOAG, PROT S FUN, METH, CARDIO GMA, AT3 DEF PROFILE #### [facility] , #### [id number], CBC, PHOS, BMP, FE PRO, MG #### [address] Mean Corpuscular HGB Conc 34.5 g/dL Normal 32.5-35.6 [facility] Comment on above: Order Comment: PT IS NON FASTING Performed By: #### B 2 GLYPROT XOCHITL, FACTOR II DNA, HOMOCYS PL, FACV LEIDM, PROCF, LIPA, LUPANTCOAG, PROT S FUN, METH, CARDIO GMA, AT3 DEF PROFILE #### [facility] , #### [id number], CBC, PHOS, BMP, FE PRO, MG #### [facility] [address] Monocytes (Bld) [#/Vol] 0.7 10*3/uL Normal 0.0-0.8 [facility] Comment on above: Order Comment: PT IS NON FASTING Performed By: #### B 2 GLYPROT XOCHITL, FACTOR II DNA, HOMOCYS PL, FACV LEIDM, PROCF, LIPA, LUPANTCOAG, PROT S FUN, METH, CARDIO GMA, AT3 DEF PROFILE #### [facility] , #### [id number], CBC, PHOS, BMP, FE PRO, MG #### [facility] [address] [place] [address] Monocytes/100 WBC (Bld) 7.0 % Normal . [facility] Comment on above: Order Comment: PT IS NON FASTING Performed By: #### B 2 GLYPROT XOCHITL, FACTOR II DNA, HOMOCYS PL, FACV LEIDM, PROCF, LIPA, LUPANTCOAG, PROT S FUN, METH, CARDIO GMA, AT3 DEF PROFILE #### [facility] , #### [id number], CBC, PHOS, BMP, FE PRO, MG #### [facility] [address] [place] [address] [place] Neutrophils (Bld) [#/Vol] 6.7 10*3/uL Normal 1.8-7.7 [facility] Comment on above: Order Comment: PT IS NON FASTING Performed By: #### B 2 GLYPROT XOCHITL, FACTOR II DNA, HOMOCYS PL, FACV LEIDM, PROCF, LIPA, LUPANTCOAG, PROT S FUN, METH, CARDIO GMA, AT3 DEF PROFILE #### [facility] , #### [id number], CBC, PHOS, BMP, FE PRO, MG #### [facility] [address] [place] [address] Neutrophils/100 WBC (Bld) 69.0 % Normal . [facility] Comment on above: Order Comment: PT IS NON FASTING Performed By: #### B 2 GLYPROT XOCHITL, FACTOR II DNA, HOMOCYS PL, FACV LEIDM, PROCF, LIPA, LUPANTCOAG, PROT S FUN, METH, CARDIO GMA, AT3 DEF PROFILE #### [facility] , #### [id number], CBC, PHOS, BMP, FE PRO, MG #### [address] Nucleated RBC/100 WBC (Bld) [Ratio] 0.2 % Normal 0-0.5 [facility] Comment on above: Order Comment: PT IS NON FASTING Performed By: #### B 2 GLYPROT XOCHITL, FACTOR II DNA, HOMOCYS PL, FACV LEIDM, PROCF, LIPA, LUPANTCOAG, PROT S FUN, METH, CARDIO GMA, AT3 DEF PROFILE #### [facility] , #### [id number], CBC, PHOS, BMP, FE PRO, MG #### [address] Platelet mean volume (Bld) [Entitic vol] 10.7 fL High 6.6-10.1 [facility] Comment on above: Order Comment: PT IS NON FASTING Performed By: #### B 2 GLYPROT XOCHITL, FACTOR II DNA, HOMOCYS PL, FACV LEIDM, PROCF, LIPA, LUPANTCOAG, PROT S FUN, METH, CARDIO GMA, AT3 DEF PROFILE #### [facility] , #### [id number], CBC, PHOS, BMP, FE PRO, MG #### [place] [address] [place] Platelets (Bld) [#/Vol] 201 10*3/uL Normal 150-450 [facility] Comment on above: Order Comment: PT IS NON FASTING Performed By: #### B 2 GLYPROT OXCHITL, FACTOR II DNA, HOMOCYS PL, FACV LEIDM, PROCF, LIPA, LUPANTCOAG, PROT S FUN, METH, CARDIO GMA, AT3 DEF PROFILE #### [facility] , #### [id number], CBC, PHOS, BMP, FE PRO, MG #### [facility] [address] RBC (Bld) [#/Vol] 4.42 10*6/uL Normal 3.90-5.[address] [facility] Comment on above: Order Comment: PT IS NON FASTING Performed By: #### B 2 GLYPROT XOCHITL, FACTOR II DNA, HOMOCYS PL, FACV LEIDM, PROCF, LIPA, LUPANTCOAG, PROT S FUN, METH, CARDIO GMA, AT3 DEF PROFILE #### [facility] , #### [id number], CBC, PHOS, BMP, FE PRO, MG #### [facility] [address] WBC (Bld) [#/Vol] 9.7 10*3/uL Normal 4.5-11.0 [facility] Comment on above: Order Comment: PT IS NON FASTING Performed By: #### B 2 GLYPROT XOCHITL, FACTOR II DNA, HOMOCYS PL, FACV LEIDM, PROCF, LIPA, LUPANTCOAG, PROT S FUN, METH, CARDIO GMA, AT3 DEF PROFILE #### [facility] , #### [id number], CBC, PHOS, BMP, FE PRO, MG #### [facility] [address] FE PROon 07-18-2020 % Iron Saturation 27.0 % Normal 20-50 [facility] Comment on above: Order Comment: PT IS NON FASTING Performed By: #### B 2 GLYPROT XOCHITL, FACTOR II DNA, HOMOCYS PL, FACV LEIDM, PROCF, LIPA, LUPANTCOAG, PROT S FUN, METH, CARDIO GMA, AT3 DEF PROFILE #### [facility] , #### [id number], CBC, PHOS, BMP, FE PRO, MG #### [facility] [address] [place] [address] Ferritin [Mass/Vol] 261.0 ng/mL Normal 23.9-336.2 [facility] Comment on above: Order Comment: PT IS NON FASTING Performed By: #### B 2 GLYPROT XOCHITL, FACTOR II DNA, HOMOCYS PL, FACV LEIDM, PROCF, LIPA, LUPANTCOAG, PROT S FUN, METH, CARDIO GMA, AT3 DEF PROFILE #### [facility] , #### [id number], CBC, PHOS, BMP, FE PRO, MG #### [address] Iron [Mass/Vol] 108 ug/dL Normal 40-160 [facility] Comment on above: Order Comment: PT IS NON FASTING Performed By: #### B 2 GLYPROT XOCHITL, FACTOR II DNA, HOMOCYS PL, FACV LEIDM, PROCF, LIPA, LUPANTCOAG, PROT S FUN, METH, CARDIO GMA, AT3 DEF PROFILE #### [facility] , #### [id number], CBC, PHOS, BMP, FE PRO, MG #### [address] Total Iron Binding Capacity 398 ug/dL Normal 255-450 [facility] Comment on above: Order Comment: PT IS NON FASTING Performed By: #### B 2 GLYPROT XOCHITL, FACTOR II DNA, HOMOCYS PL, FACV LEIDM, PROCF, LIPA, LUPANTCOAG, PROT S FUN, METH, CARDIO GMA, AT3 DEF PROFILE #### [facility] , #### [id number], CBC, PHOS, BMP, FE PRO, MG #### [address] Transferrin [Mass/Vol] 284 mg/dL Normal 180-380 [facility] Comment on above: Order Comment: PT IS NON FASTING Performed By: #### B 2 GLYPROT XOCHITL, FACTOR II DNA, HOMOCYS PL, FACV LEIDM, PROCF, LIPA, LUPANTCOAG, PROT S FUN, METH, CARDIO GMA, AT3 DEF PROFILE #### [facility] , #### [id number], CBC, PHOS, BMP, FE PRO, MG #### [facility] [address] [place] [id number] [facility] Factor II DNA Analysison Factor II, DNA Analysis Normal . [facility] Comment on above: Order Comment: PT IS NON FASTING Result Comment: NEGA TIVE No mutation identified. Comment: A point mutation ([id number]) in the factor II (prothrombin) gene is the second most common cause of inherited thrombophilia. The incidence of this mutation in the [place] population is about 2% and in the population it is approximately 0.5%. This mutation is rare in the and population. Being heterozygous for a prothrombin mutation increases the risk for developing venous thrombosis about 2 to 3 times above the general population risk. Being homozygous for the prothrombin gene mutation increases the relative risk for venous thrombosis further, although it is not yet known how much further the risk is increased. In women heterozygous for the prothrombin gene mutation, the use of estrogen containing oral contraceptives increases the relative risk of venous thrombosis about 16 times and the risk of developing cerebral thrombosis is also significantly increased. In the prothrombin gene mutation increases risk for venous thrombosis and may increase risk for stillbirth, placental abruption, pre-eclampsia and growth restriction. If the patient possesses two or more congenital or acquired thrombophilic risk factors, the risk for thrombosis may rise to more than the sum of the risk ratios for the individual mutations. This assay detects only the prothrombin [id number] mutation and does not measure genetic abnormalities elsewhere in the genome. Other thrombotic risk factors may be pursued through systematic clinical laboratory analysis. These factors include the R506Q (Leiden) mutation in the Factor V gene, plasma homocysteine levels, as well as testing for deficiencies of antithrombin III, protein C and protein S. Genetic Counselors are available for health care providers to discuss results at [phone] Methodology: DNA analysis of the Factor II gene was performed by PCR amplification followed by restriction analysis. The diagnostic sensitivity is >99% for both. All the tests must be combined with clinical information for the most accurate interpretation. Molecular-based testing is highly accurate, but as in any laboratory test, diagnostic errors may occur. This test was developed and its performance characteristics determined by [facility]. It has not been cleared or approved by the Food and Drug Administration. Poort SR, et al. Blood. 1996; 88:6396-1092. Arabella GILLIAM. Circulation. 2004; 110:e15-e18. Wanda I, et al. Arterioscler Thromb Vasc Biol. 1999; 19:700-703. Oanh Preciado, PhD, FAC Marj Rosales, PhD, FACMG Mar Hernández, PhD, FACMG Ibeth Turk, PhD, FACMG Bree Arroyo, PhD, FAC Amado Sanchez, PhD, FAC Performed at: [facility] [address] [place], [place] [id number] Hydraulic Jack Operator: Sabra Tariq [facility], Phone: [phone] PERFORMED BY: [place] [address] PATHOLOGIST DIGITAL MARKETING CONSULTANT TOBY GRACIA M.D. Performed By: #### B 2 GLYPROT XOCHITL, FACTOR II DNA, HOMOCYS PL, FACV LEIDM, PROCF, LIPA, LUPANTCOAG, PROT S FUN, METH, CARDIO GMA, AT3 DEF PROFILE #### [facility] , #### [id number], CBC, PHOS, BMP, FE PRO, MG #### [facility] [address] Factor V Leiden Mutationon 0 07-18-2020 Factor V Leiden Normal . [facility] Comment on above: Order Comment: PT IS NON FASTING Result Comment: Resu lt: Negative (no mutation found) Factor V Leiden is a specific mutation (R506Q) in the factor V gene that is associated with an increased risk of venous thrombosis. Factor V Leiden is more resistant to inactivation by activated protein C. As a result, factor V persists in the circulation leading to a mild hyper- coagulable state. The Leiden mutation accounts for 90% - 95% of APC resistance. Factor V Leiden has been reported in patients with deep vein thrombosis, pulmonary embolus, central retinal vein occlusion, cerebral sinus thrombosis and hepatic vein thrombosis. Other risk factors to be considered in the workup for venous thrombosis include the [id number] mutation in the factor II (prothrombin) gene, protein S and C deficiency, and antithrombin deficiencies. Anticardiolipin antibody and lupus anticoagulant analysis may be appropriate for certain patients, as well as homocysteine levels. Contact your local [facility] for information on how to order additional testing if desired. Genetic counselors are available for health care providers to discuss results at [phone]). Methodology: DNA analysis of the Factor V gene was performed by allele- specific PCR. The diagnostic sensitivity and specificity is >99% for both. Molecular-based testing is highly accurate, but as in any laboratory test, diagnostic errors may occur. All test results must be combined with clinical information for the most accurate interpretation. This test was developed and its performance characteristics determined by [facility]. It has not been cleared or approved by the Food and Drug Administration. References: Deepa Orourke (1995). Clin Lab Med 16:169-186. Oanh Preciado, PhD, FAC Marj Rosales, PhD, FAC Mar Hernández, PhD, FAC Ibeth Turk, PhD, FACMG Bree Arroyo, PhD, FAC Amado Sanchez PhD, FAC Performed By: #### B 2 GLYPROT XOCHITL, FACTOR II DNA, HOMOCYS PL, FACV LEIDM, PROCF, LIPA, LUPANTCOAG, PROT S FUN, METH, CARDIO GMA, AT3 DEF PROFILE #### [facility] , #### [id number], CBC, PHOS, BMP, FE PRO, MG #### [place] [id number] [facility] Homocysteine, Plasma/Serumon 07-18-2020 Homocysteine, Plasma/Serum 9.6 umol/L Normal 0.0-17.2 [facility] Comment on above: Order Comment: PT IS NON FASTING Result Comment: Perf ormed at: [address] [id number] Hydraulic Jack Operator: Prakash Barbour PhD, Phone: [phone] Performed By: #### B 2 GLYPROT XOCHITL, FACTOR II DNA, HOMOCYS PL, FACV LEIDM, PROCF, LIPA, LUPANTCOAG, PROT S FUN, METH, CARDIO GMA, AT3 DEF PROFILE #### [facility] , #### [id number], CBC, PHOS, BMP, FE PRO, MG #### [facility] [address] Lipoprotein (a)on 07-18-2020 Lipoprotein a [Mass/Vol] mg/dL Normal <75.0 [facility] Comment on above: Order Comment: PT IS NON FASTING Result Comment: Re sults verified by repeat testing Note: Values greater than or equal to 75.0 nmol/L may indicate an independent risk factor for CHD, but must be evaluated with caution when applied to non- populations due to the influence of genetic factors on Lp(a) across ethnicities. Performed at: [address] [id number] Hydraulic Jack Operator: Prakash Barbour PhD, Phone: [phone] Performed By: #### B 2 GLYPROT XOCHITL, FACTOR II DNA, HOMOCYS PL, FACV LEIDM, PROCF, LIPA, LUPANTCOAG, PROT S FUN, METH, CARDIO GMA, AT3 DEF PROFILE #### [facility] , #### [id number], CBC, PHOS, BMP, FE PRO, MG #### [facility] [address] [place] [id number] [place] Lupus Anticoagulant Compon 0 07-18-2020 Dilute Prothrombin Time (dPt) 74.8 High 0.0-55.0 [facility] Comment on above: Order Comment: PT IS NON FASTING Performed By: #### B 2 GLYPROT XOCHITL, FACTOR II DNA, HOMOCYS PL, FACV LEIDM, PROCF, LIPA, LUPANTCOAG, PROT S FUN, METH, CARDIO GMA, AT3 DEF PROFILE #### [facility] , #### [id number], CBC, PHOS, BMP, FE PRO, MG #### [facility] [address] [place] [address] dPT Confirm Ratio 0.95 Normal 0.00-1.40 [facility] Comment on above: Order Comment: PT IS NON FASTING Performed By: #### B 2 GLYPROT XOCHITL, FACTOR II DNA, HOMOCYS PL, FACV LEIDM, PROCF, LIPA, LUPANTCOAG, PROT S FUN, METH, CARDIO GMA, AT3 DEF PROFILE #### [facility] , #### [id number], CBC, PHOS, BMP, FE PRO, MG #### [facility] [address] [place] [address] DRVVT Lupus 41.8 Normal 0.0-47.0 [facility] Comment on above: Order Comment: PT IS NON FASTING Performed By: #### B 2 GLYPROT XOCHITL, FACTOR II DNA, HOMOCYS PL, FACV LEIDM, PROCF, LIPA, LUPANTCOAG, PROT S FUN, METH, CARDIO GMA, AT3 DEF PROFILE #### [facility] , #### [id number], CBC, PHOS, BMP, FE PRO, MG #### [facility] [address] [place] [address] Interpretation Comment: Normal . [facility] Comment on above: Order Comment: PT IS NON FASTING Result Comment: No l upus anticoagulant was detected. However, the dPT is markedly extended, as can be seen in patients receiving oral anticoagulant therapy (OAT). In general, OAT can reduce the accuracy of lupus anticoagulant testing and results obtain for patients receiving OAT should be interpreted with caution. Performed at: [address] [id number] Hydraulic Jack Operator: Meet Parish MD, Phone: [phone] Performed By: #### B 2 GLYPROT XOCHITL, FACTOR II DNA, HOMOCYS PL, FACV LEIDM, PROCF, LIPA, LUPANTCOAG, PROT S FUN, METH, CARDIO GMA, AT3 DEF PROFILE #### [facility] , #### [id number], CBC, PHOS, BMP, FE PRO, MG #### [facility] [address] [place] [address] PTT-LA 32.2 Normal 0.0-51.9 [facility] Comment on above: Order Comment: PT IS NON FASTING Performed By: #### B 2 GLYPROT XOCHITL, FACTOR II DNA, HOMOCYS PL, FACV LEIDM, PROCF, LIPA, LUPANTCOAG, PROT S FUN, METH, CARDIO GMA, AT3 DEF PROFILE #### [facility] , #### [id number], CBC, PHOS, BMP, FE PRO, MG #### [address] Thrombin Time 18.3 Normal 0.0-23.0 [facility] Comment on above: Order Comment: PT IS NON FASTING Performed By: #### B 2 GLYPROT XOCHITL, FACTOR II DNA, HOMOCYS PL, FACV LEIDM, PROCF, LIPA, LUPANTCOAG, PROT S FUN, METH, CARDIO GMA, AT3 DEF PROFILE #### [facility] , #### [id number], CBC, PHOS, BMP, FE PRO, MG #### [address] Magnesiumon 07-18-2020 Magnesium [Mass/Vol] 1.9 mg/dL Normal 1.6-2.6 [facility] Comment on above: Order Comment: PT IS NON FASTING Performed By: #### B 2 GLYPROT XOCHITL, FACTOR II DNA, HOMOCYS PL, FACV LEIDM, PROCF, LIPA, LUPANTCOAG, PROT S FUN, METH, CARDIO GMA, AT3 DEF PROFILE #### [facility] , #### [id number], CBC, PHOS, BMP, FE PRO, MG #### [address] Methylmalonic Acidon 021 Methylmalonic Acid 181 Normal 0-378 [facility] Comment on above: Order Comment: PT IS NON FASTING Performed By: #### B 2 GLYPROT XOCHITL, FACTOR II DNA, HOMOCYS PL, FACV LEIDM, PROCF, LIPA, LUPANTCOAG, PROT S FUN, METH, CARDIO GMA, AT3 DEF PROFILE #### [facility] , #### [id number], CBC, PHOS, BMP, FE PRO, MG #### [facility] [address] Methylmalonic Acid Disclaimer Normal . [facility] Comment on above: Order Comment: PT IS NON FASTING Result Comment: This test was developed and its performance characteristics determined by [facility]. It has not been cleared or approved by the Food and Drug Administration. Performed at: [address] [id number] Hydraulic Jack Operator: Meet Parish MD, Phone: [phone] Performed By: #### B 2 GLYPROT XOCHITL, FACTOR II DNA, HOMOCYS PL, FACV LEIDM, PROCF, LIPA, LUPANTCOAG, PROT S FUN, METH, CARDIO GMA, AT3 DEF PROFILE #### [facility] , #### [id number], CBC, PHOS, BMP, FE PRO, MG #### [facility] [address] Phosphoruson 07-18-2020 Phosphate [Mass/Vol] 3.7 mg/dL Normal 2.5-4.6 [facility] Comment on above: Order Comment: PT IS NON FASTING Performed By: #### B 2 GLYPROT XOCHITL, FACTOR II DNA, HOMOCYS PL, FACV LEIDM, PROCF, LIPA, LUPANTCOAG, PROT S FUN, METH, CARDIO GMA, AT3 DEF PROFILE #### [facility] , #### [id number], CBC, PHOS, BMP, FE PRO, MG #### [facility] [address] [place] [id number] [place] Protein C Functionalon 07-18 Protein C Functional 33 % Low 73-180 [facility] Comment on above: Order Comment: PT IS NON FASTING Result Comment: A de ficiency of protein C (PC), either congenital or acquired, increases the risk of thromboembolism. Acquired PC deficiency occurs more frequently than congenital deficiency. PC levels can be transiently diminished after a thrombotic event or surgery or in the presence of certain anticoagulants. Heparin, direct Xa inhibitor, or thrombotic inhibitor therapy does not alter PC levels physiologically and does not interfere with this assay because it is chromogenic and clot-based. Vitamin K antagonist therapy may decrease plasma levels of functional protein C (PC) as PC is a vitamin K-dependent protein. Vitamin K deficiency, due to dietary insufficiency or malabsorption will also lead to reduced PC levels. Acquired deficiency can be found in individuals with disseminated intravascular coagulation (DIC) and sepsis. Severe hepatic disorders (hepatitis, cirrhosis, etc.), nephrotic syndrome, malignancy and inflammatory bowel disease can lead to diminished PC levels. Drug therapy with L-asparaginse or fluorouracil can also reduce PC levels. Levels may be decreased in patients with polycythemia vera, sickle cell disease and essential thrombocythemia. Repeat evaluation on a new plasma sample to confirm or refute this result should be considered, after ruling out acquired causes, depending on the clinical scenario. Performed at: - [facility] [id number] Hydraulic Jack Operator: Meet Parish MD, Phone: [phone] Performed By: #### B 2 GLYPROT XOCHITL, FACTOR II DNA, HOMOCYS PL, FACV LEIDM, PROCF, LIPA, LUPANTCOAG, PROT S FUN, METH, CARDIO GMA, AT3 DEF PROFILE #### [facility] , #### [id number], CBC, PHOS, BMP, FE PRO, MG #### [facility] [address] Protein S Functionalon 07-18 Protein S Functional 49 % Low 63-140 [facility] Comment on above: Order Comment: PT IS NON FASTING Result Comment: A de ficiency of protein S (PS), either congenital or acquired, increases the risk of thromboembolism. PS activity levels may be falsely low in individuals with APCR/Factor V Leiden. Consider performing free protein S antigen in those with APCR/Factor V Leiden before making a diagnosis of protein S deficiency. Acquired PS deficiency is more common than congenital deficiency. PS values decrease with normal , and are also dependent on age, sex and hormone status. PS values tend to be lower in a younger age group and lower in women than in men. Levels may be decreased in pre-menopausal women on oral contraceptive agents. Acquired deficiency can occur as a result of vitamin K deficiency or antagonism, severe hepatic disorders, (hepatitis, cirrhosis, etc.), nephrotic syndrome, inflammatory bowel disease, certain chemotherapeutic agents, L-asparaginse therapy, sepsis, disseminated intravascular coagulation (DIC) and acute thrombosis. Levels may be decreased in patients with polycythemia vera, sickle cell disease and essential thrombocythemia. Repeat evaluation on a new plasma sample to confirm or refute this result should be considered, after ruling out acquired causes, depending on the clinical scenario. Performed By: #### B 2 GLYPROT XOCHITL, FACTOR II DNA, HOMOCYS PL, FACV LEIDM, PROCF, LIPA, LUPANTCOAG, PROT S FUN, METH, CARDIO GMA, AT3 DEF PROFILE #### [facility] , #### [id number], CBC, PHOS, BMP, FE PRO, MG #### [facility] [address] Vit. B12/Folate Profileon Cobalamin (Vitamin B12) [Mass/Vol] 692 pg/mL Normal 180-914 [facility] Comment on above: Order Comment: PT IS NON FASTING Performed By: #### B 2 GLYPROT XOCHITL, FACTOR II DNA, HOMOCYS PL, FACV LEIDM, PROCF, LIPA, LUPANTCOAG, PROT S FUN, METH, CARDIO GMA, AT3 DEF PROFILE #### [facility] , #### [id number], CBC, PHOS, BMP, FE PRO, MG #### [facility] [address] Folate > 22.3 Normal >5.9 [facility] Comment on above: Order Comment: PT IS NON FASTING Result Comment: Claudine te reference range: >5.9 ng/ml The WHO technical consultation on folate and vitamin b12 deficiencies has determined that folate concentrations less than 4 ng/ml are considered deficient. PERFORMED BY: [facility] [address] [place] [address] PATHOLOGIST DIGITAL MARKETING CONSULTANT TOBY GRACIA M.D. Performed By: #### B 2 GLYPROT XOCHITL, FACTOR II DNA, HOMOCYS PL, FACV LEIDM, PROCF, LIPA, LUPANTCOAG, PROT S FUN, METH, CARDIO GMA, AT3 DEF PROFILE #### [facility] , #### [id number], CBC, PHOS, BMP, FE PRO, MG #### [facility] [address] [place] [address] [facility] POCT Glucoseon 04-13-2019 Glucose [Mass/Vol] 202 mg/dL Critically high 60-115 [facility] Comment on above: Performed By: #### P GLU #### [facility] [address] [facility] [address] POC Performed on ACCU-CHEK Normal [facility] Comment on above: Performed By: #### P GLU #### [facility] [address] [facility] [address] Glucose [Mass/Vol] 202 mg/dL High 60 - 115 mg/dl [place], [place] Interpretation and review of laboratory results Abnormal [place], [place] Performed on ACCU-CHEK [place] Glucose [Mass/Vol] 223 mg/dL Critically high 60-115 [facility] Comment on above: Performed By: #### P GLU #### [facility] [address] [place] [address] POC Performed on ACCU-CHEK Normal [facility] Comment on above: Performed By: #### P GLU #### [facility] [address] [place] [address] Glucose [Mass/Vol] 223 mg/dL High 60 - 115 mg/dl [place] Interpretation and review of laboratory results Abnormal [place] Performed on ACCU-CHEK [facility] [place] PROTIME-INRon 04-13-2019 INR Coag (PPP) [Relative time] 2.3 {INR} [place], [place] Comment on above: Warfarin Therapy INR Therapeutic: 2.0-3.0 With Mechanical Valve: >2.5 Low-intensity Therapeutic Range: 1.5-2.0 Mod-intensity Therapeutic Range: 2.0-3.0 High-intensity Therapeutic Range: 2.5-3.5 HIgh-intensity Therapeutic Range: 3.0-4.0 Common Critical/Alarm Value: 5.0 Common Upper Limit Reported: 10.0 Effective 11/26/2018: Please note methodology and/or reference ranges have changed. Interpretation and review of laboratory results Abnormal [place], [place] PT Coag (PPP) [Time] 26.5 s High [place], [place] Comment on above: Effective 11/26/18 Please note methodology and/or reference ranges have changed. Prothrombin Timeon 9 INR Coag (PPP) [Relative time] 2.3 {INR} Normal [facility] Comment on above: Result Comment: Warf brian Therapy INR Therapeutic: 2.0-3.0 With Mechanical Valve: >2.5 Low-intensity Therapeutic Range: 1.5-2.0 Mod-intensity Therapeutic Range: 2.0-3.0 High-intensity Therapeutic Range: 2.5-3.5 HIgh-intensity Therapeutic Range: 3.0-4.0 Common Critical/Alarm Value: 5.0 Common Upper Limit Reported: 10.0 Effective 11/26/2018: Please note methodology and/or reference ranges have changed. Performed By: #### P GLU #### [facility] [address] [facility] [address] PT Coag (PPP) [Time] 26.5 s Critically high 12.3-14.9 [facility] Comment on above: Result Comment: Effe ctive 11/26/18 Please note methodology and/or reference ranges have changed. Performed By: #### P GLU #### [facility] [address] [facility] [address] POCT Glucoseon 04-12-2019 Glucose [Mass/Vol] 154 mg/dL Critically high 60-115 [facility] Comment on above: Performed By: #### P GLU #### [facility] [address] [place] [address] POC Performed on ACCU-CHEK Normal [facility] Comment on above: Performed By: #### P GLU #### [facility] [address] [place] [address] Glucose [Mass/Vol] 154 mg/dL High 60 - 115 mg/dl [place] Interpretation and review of laboratory results Abnormal [place] Performed on ACCU-CHEK [place] Glucose [Mass/Vol] 241 mg/dL Critically high 60-115 [facility] Comment on above: Performed By: #### P T #### [facility] [address] [place] [address] POC [facility] on [facility] Comment on above: Performed By: #### P T #### [facility] [address] [place] [address] Glucose [Mass/Vol] 241 mg/dL High 60 - 115 mg/dl [place] Interpretation and review of laboratory results Abnormal [place] Performed on ACCU-CHEK [place] Glucose [Mass/Vol] 194 mg/dL Critically high 60-115 [facility] Comment on above: Performed By: #### P T #### [facility] [address] [place] [address] POC [facility] Comment on above: Performed By: #### P T #### [facility] [address] [place] [address] Glucose [Mass/Vol] 194 mg/dL High 60 - 115 mg/dl [place] Interpretation and review of laboratory results Abnormal [place] Performed on ACCU-CHEK [place] Glucose [Mass/Vol] 228 mg/dL Critically high 60-115 [facility] Comment on above: Performed By: #### P T #### [facility] [address] [place] [address] POC Performed on ACCU-CHEK Normal [facility] Comment on above: Performed By: #### P T #### [facility] [address] [place] [address] Glucose [Mass/Vol] 228 mg/dL High 60 - 115 mg/dl [place] Interpretation and review of laboratory results Abnormal [place] Performed on ACCU-CHEK [place] PROTIME-INRon 04-12-2019 INR Coag (PPP) [Relative time] 2.1 {INR} [place], [place] Comment on above: Warfarin Therapy IN R Therapeutic: 2.0-3.0 With Mechanical Valve: >2.5 Low-intensity Therapeutic Range: 1.5-2.0 Mod-intensity Therapeutic Range: 2.0-3.0 High-intensity Therapeutic Range: 2.5-3.5 HIgh-intensity Therapeutic Range: 3.0-4.0 Common Critical/Alarm Value: 5.0 Common Upper Limit Reported: 10.0 Effective 11/26/2018: Please note methodology and/or reference ranges have changed. Interpretation and review of laboratory results Abnormal [place] PT Coag (PPP) [Time] 24.3 s [place] Comment on above: Effective 11/26/18 Please note methodology and/or reference ranges have changed. Prothrombin Timeon 9 INR Coag (PPP) [Relative time] 2.1 {INR} Normal [facility] Comment on above: Result Comment: Warf brian Therapy INR Therapeutic: 2.0-3.0 With Mechanical Valve: >2.5 Low-intensity Therapeutic Range: 1.5-2.0 Mod-intensity Therapeutic Range: 2.0-3.0 High-intensity Therapeutic Range: 2.5-3.5 HIgh-intensity Therapeutic Range: 3.0-4.0 Common Critical/Alarm Value: 5.0 Common Upper Limit Reported: 10.0 Effective 11/26/2018: Please note methodology and/or reference ranges have changed. Performed By: #### P T #### [facility] [address] [place] [address] PT Coag (PPP) [Time] 24.3 s Critically high 12.3-14.9 [facility] Comment on above: Result Comment: Effkarin ctive 11/26/18 Please note methodology and/or reference ranges have changed. Performed By: #### P T #### [facility] [address] [place] [address] POCT Glucoseon 04-11-2019 Glucose [Mass/Vol] 234 mg/dL Critically high 60-115 [facility] Comment on above: Performed By: #### P T #### [facility] [address] [place] [address] POC Performed on ACCU-CHEK Normal [facility] Comment on above: Performed By: #### P T #### [facility] [address] [place] [address] Glucose [Mass/Vol] 234 mg/dL High 60 - 115 mg/dl [place] Interpretation and review of laboratory results Abnormal [place] Performed on ACCU-CHEK [facility], [place] Glucose [Mass/Vol] 246 mg/dL Critically high 60-115 [facility] Comment on above: Performed By: #### P T #### [facility] [address] [place] [address] POC Performed on ACCU-CHEK Normal [facility] Comment on above: Performed By: #### P T #### [facility] [address] [place] [address] Glucose [Mass/Vol] 246 mg/dL High 60 - 115 mg/dl [place] Interpretation and review of laboratory results Abnormal [facility], [place] Performed on ACCU-CHEK [facility] [place] Glucose [Mass/Vol] 258 mg/dL Critically high 60-115 [place] Comment on above: Performed By: #### P T #### [facility] [address] [place] [address] Interpretation and review of laboratory results Abnormal [facility] Glucose [Mass/Vol] 249 mg/dL Critically high 60-115 [facility] Comment on above: Performed By: #### P T #### [facility] [address] [place] [address] POC [facility] on [facility] Comment on above: Performed By: #### P T #### [facility] [address] [place] [address] Glucose [Mass/Vol] 249 mg/dL High 60 - 115 mg/dl [place] Interpretation and review of laboratory results Abnormal [place] [facility] [place] [facility] PROTIME-INRon 04-11-2019 INR Coag (PPP) [Relative time] 1.6 {INR} [place] Comment on above: Warfarin Therapy INR Therapeutic: 2.0-3.0 With Mechanical Valve: >2.5 Low-intensity Therapeutic Range: 1.5-2.0 Mod-intensity Therapeutic Range: 2.0-3.0 High-intensity Therapeutic Range: 2.5-3.5 HIgh-intensity Therapeutic Range: 3.0-4.0 Common Critical/Alarm Value: 5.0 Common Upper Limit Reported: 10.0 Effective 11/26/2018: Please note methodology and/or reference ranges have changed. Interpretation and review of laboratory results Abnormal [place] PT Coag (PPP) [Time] 19.6 s High [place] Comment on above: Effective 11/26/18 Please note methodology and/or reference ranges have changed. Prothrombin Timeon 9 INR Coag (PPP) [Relative time] 1.6 {INR} [facility] Comment on above: Result Comment: Warf brian Therapy INR Therapeutic: 2.0-3.0 With Mechanical Valve: >2.5 Low-intensity Therapeutic Range: 1.5-2.0 Mod-intensity Therapeutic Range: 2.0-3.0 High-intensity Therapeutic Range: 2.5-3.5 HIgh-intensity Therapeutic Range: 3.0-4.0 Common Critical/Alarm Value: 5.0 Common Upper Limit Reported: 10.0 Effective 11/26/2018: Please note methodology and/or reference ranges have changed. Performed By: #### P T #### [facility] [address] [place] [address] PT Coag (PPP) [Time] 19.6 s Critically high 12.3-14.9 [facility] Comment on above: Result Comment: Effe ctive 11/26/18 Please note methodology and/or reference ranges have changed. Performed By: #### P T #### [facility] [address] [place] [address] POCT Glucoseon 04-10-2019 Glucose [Mass/Vol] 290 mg/dL Critically high 60-115 [facility] Comment on above: Performed By: #### P T #### [facility] [address] [place] [address] POC Performed on ACCU-CHEK Normal [facility] Comment on above: Performed By: #### P T #### [facility] [address] [place] [address] Glucose [Mass/Vol] 290 mg/dL High 60 - 115 mg/dl [place] Interpretation and review of laboratory results Abnormal [place]formed [place] ACCU-CHEK [place] Glucose [Mass/Vol] 337 mg/dL Critically high 60-115 [facility] Comment on above: Performed By: #### P GLU #### [facility] [address] [place] [address] POC Performed on ACCU-CHEK Normal [facility] Comment on above: Performed By: #### P GLU #### [facility] [address] [place] [address] Glucose [Mass/Vol] 337 mg/dL High 60 - 115 mg/dl [place] Interpretation and review of laboratory results Abnormal [place]formed [place] ACCU-CHEK [place] Glucose [Mass/Vol] 313 mg/dL Critically high 60-115 [facility] Comment on above: Performed By: #### P GLU #### [facility] [address] [place] [address] POC [facility] Comment on above: Performed By: #### P GLU #### [facility] [address] [place] [address] Glucose [Mass/Vol] 313 mg/dL High 60 - 115 mg/dl [place] Interpretation and review of laboratory results Abnormal [place] Glucose [Mass/Vol] 309 mg/dL Critically high 60-115 [facility] Comment on above: Performed By: #### P GLU #### [facility] [address] [place] [address] POC Performed on [facility] Comment on above: Performed By: #### P GLU #### [facility] [address] [facility] [address] Glucose [Mass/Vol] 309 mg/dL High 60 - 115 mg/dl [place] Interpretation and review of laboratory results Abnormal [place] PROTIME-INRon 04-10-2019 INR Coag (PPP) [Relative time] 1.1 {INR} [place] Comment on above: Warfarin Therapy IN R Therapeutic: 2.0-3.0 With Mechanical Valve: >2.5 Low-intensity Therapeutic Range: 1.5-2.0 Mod-intensity Therapeutic Range: 2.0-3.0 High-intensity Therapeutic Range: 2.5-3.5 HIgh-intensity Therapeutic Range: 3.0-4.0 Common Critical/Alarm Value: 5.0 Common Upper Limit Reported: 10.0 Effective 11/26/2018: Please note methodology and/or reference ranges have changed. PT Coag (PPP) [Time] 14.7 s [place] Comment on above: Effective 11/26/18 Please note methodology and/or reference ranges have changed. Prothrombin Timeon 9 INR Coag (PPP) [Relative time] 1.1 {INR} Normal [facility] Comment on above: Result Comment: Warf brian Therapy INR Therapeutic: 2.0-3.0 With Mechanical Valve: >2.5 Low-intensity Therapeutic Range: 1.5-2.0 Mod-intensity Therapeutic Range: 2.0-3.0 High-intensity Therapeutic Range: 2.5-3.5 HIgh-intensity Therapeutic Range: 3.0-4.0 Common Critical/Alarm Value: 5.0 Common Upper Limit Reported: 10.0 Effective 11/26/2018: Please note methodology and/or reference ranges have changed. Performed By: #### P GLU #### [facility] [address] [place] [address] PT Coag (PPP) [Time] 14.7 s Normal 12.3-14.9 [facility] Comment on above: Result Comment: Effe ctive 11/26/18 Please note methodology and/or reference ranges have changed. Performed By: #### P GLU #### [facility] [address] [place] [address] Basic Metabolic Panel Reflex Mgon 04-09-2019 Anion gap [Moles/Vol] 10 mmol/L Normal 9-15 [facility] Comment on above: Performed By: #### T S3C #### [facility] [address] [place] [address] Calcium [Mass/Vol] 8.2 mg/dL Low 8.5-9.9 [facility] Comment on above: Performed By: #### T S3C #### [facility] [address] [place] [address] Chloride [Moles/Vol] 98 mmol/L Normal 95-107 [facility] Comment on above: Performed By: #### T S3C #### [facility] [address] [place] [address] CO2 [Moles/Vol] 23 mmol/L Normal 20-31 [facility] Comment on above: Performed By: #### T S3C #### [facility] [address] [place] [address] Creatinine [Mass/Vol] 1.38 mg/dL Critically high 0.70-1.20 [facility] Comment on above: Performed By: #### T S3C #### [facility] [address] [place] [address] GFR/1.73 sq M predicted among blacks MDRD (S/P/Bld) [Vol rate/Area] mL/min/{1.73_m2} Normal >60 [facility] Comment on above: Result Comment: >60 mL/min/1.73m2 EGFR, calc. for ages 18 and older using the MDRD formula (not corrected for weight), is valid for stable renal function. Performed By: #### T S3C #### [facility] [address] [place] [address] GFR/1.73 sq M.predicted MDRD (S/P/Bld) [Vol rate/Area] 51.1 mL/min/{1.73_m2} Low >60 [facility] Comment on above: Result Comment: >60 mL/min/1.73m2 EGFR, calc. for ages 18 and older using the MDRD formula (not corrected for weight), is valid for stable renal function. Performed By: #### T S3C #### [facility] [address] [place] [address] Glucose [Mass/Vol] 266 mg/dL Critically high 70-99 [facility] Comment on above: Performed By: #### T S3C #### [facility] [address] [place] [address] Potassium reflex Mg 4.0 mEq/L Normal 3.4-4.9 [facility] Comment on above: Performed By: #### T S3C #### [facility] [address] [place] [address] Sodium [Moles/Vol] 131 mmol/L Low 135-144 [facility] Comment on above: Performed By: #### T S3C #### [facility] [address] [place] [address] Urea nitrogen [Mass/Vol] 13 mg/dL Normal 8-23 [facility] Comment on above: Performed By: #### T S3C #### [facility] [address] [place] [address] Basic Metabolic Panel w/ Ref anthony to MGon 04-09-2019 Anion gap [Moles/Vol] 10 mmol/L [place] Calcium [Mass/Vol] 8.2 mg/dL Low 8.5 - 9.9 mg/dL [place] Chloride [Moles/Vol] 98 mmol/L [place] CO2 [Moles/Vol] 23 mmol/L [place] Creatinine [Mass/Vol] 1.38 mg/dL High 0.7 - 1.2 mg/dL [place] GFR >60.0 >60 [place] Comment on above: >60 mL/min/1.73m2 EG FR, calc. for ages 18 and older using the MDRD formula (not corrected for weight), is valid for stable renal function. GFR Non- 51.1 Low >60 [place] Comment on above: >60 mL/min/1.73m2 EG FR, calc. for ages 18 and older using the MDRD formula (not corrected for weight), is valid for stable renal function. Glucose [Mass/Vol] 266 mg/dL High 70 - 99 mg/dL [place] Interpretation and review of laboratory results Abnormal [place] Potassium [Moles/Vol] 4.0 mmol/L [place] Sodium [Moles/Vol] 131 mmol/L Low [place] Urea nitrogen [Mass/Vol] 13 mg/dL 8 - 23 mg/dL [place] CBC With Platelet and Differ entialon 04-09-2019 Basophils (Bld) [#/Vol] 0.1 10*3/uL Normal 0.0-0.2 [facility] Comment on above: Performed By: #### T S3C #### [facility] [address] [place] [address] Basophils/100 WBC (Bld) 0.7 % Normal [facility] Comment on above: Performed By: #### T S3C #### [facility] [address] [place] [address] Eosinophils (Bld) [#/Vol] 0.5 10*3/uL Normal 0.0-0.7 [facility] Comment on above: Performed By: #### T S3C #### [facility] [address] [place] [address] Eosinophils/100 WBC (Bld) 5.9 % Normal [facility] Comment on above: Performed By: #### T S3C #### [facility] [address] [place] [address] Erythrocyte distribution width (RBC) [Ratio] 12.6 % Normal 11.5-14.5 [facility] Comment on above: Performed By: #### T S3C #### [facility] [address] [place] [address] Hematocrit (Bld) [Volume fraction] 31.5 % Low 42.0-52.0 [facility] Comment on above: Performed By: #### T S3C #### [facility] [address] [place] [address] Hemoglobin (Bld) [Mass/Vol] 10.6 g/dL Low 14.0-18.0 [facility] Comment on above: Performed By: #### T S3C #### [facility] [address] [place] [address] Lymphocytes (Bld) [#/Vol] 1.0 10*3/uL Normal 1.0-4.8 [facility] Comment on above: Performed By: #### T S3C #### [facility] [address] [place] [address] Lymphocytes/100 WBC (Bld) 12.8 % Normal [facility] Comment on above: Performed By: #### T S3C #### [facility] [address] [place] [address] MCH (RBC) [Entitic mass] 31.3 pg Normal 27.0-31.3 [facility] Comment on above: Performed By: #### T S3C #### [facility] [address] [place] [address] MCHC (RBC) [Mass/Vol] 33.8 % Normal 33.0-37.0 [facility] Comment on above: Performed By: #### T S3C #### [facility] [address] [place] [address] MCV (RBC) [Entitic vol] 92.8 fL Normal 80.0-100.0 [facility] Comment on above: Performed By: #### T S3C #### [facility] [address] [place] [address] Monocytes (Bld) [#/Vol] 0.7 10*3/uL Normal 0.2-0.8 [facility] Comment on above: Performed By: #### T S3C #### [facility] [address] [place] [address] Monocytes/100 WBC (Bld) 9.0 % Normal [facility] Comment on above: Performed By: #### T S3C #### [facility] [address] [place] [address] Neutrophils (Bld) [#/Vol] 5.8 10*3/uL Normal 1.4-6.5 [facility] Comment on above: Performed By: #### T S3C #### [facility] [address] [place] [address] Neutrophils/100 WBC (Bld) 71.6 % Normal [facility] Comment on above: Performed By: #### T S3C #### [facility] [address] [place] [address] Platelets (Bld) [#/Vol] 169 10*3/uL Normal 130-400 [facility] Comment on above: Performed By: #### T S3C #### [facility] [address] [place] [address] RBC (Bld) [#/Vol] 3.39 10*6/uL Low 4.70-6.10 [facility] Comment on above: Performed By: #### T S3C #### [facility] [address] [place] [address] WBC (Bld) [#/Vol] 8.1 10*3/uL Normal 4.8-10.8 [facility] Comment on above: Performed By: #### T S3C #### [facility] [address] [place] [address] CBC auto differentialon 03-20 Basophils (Bld) [#/Vol] 0.1 10*3/uL 0 - 0.2 K/uL [place] Basophils/100 WBC (Bld) 0.7 % [place] Eosinophils (Bld) [#/Vol] 0.5 10*3/uL 0 - 0.7 K/uL [place] Eosinophils/100 WBC (Bld) 5.9 % [place] Erythrocyte distribution width (RBC) [Ratio] 12.6 % 11.5 - 14.5 % [place] Hematocrit (Bld) [Volume fraction] 31.5 % Low 42 - 52 % [place] Hemoglobin (Bld) [Mass/Vol] 10.6 g/dL Low 14 - 18 g/dL [place] Interpretation and review of laboratory results Abnormal [place] Lymphocytes (Bld) [#/Vol] 1.0 10*3/uL 1 - 4.8 K/uL [place] Lymphocytes/100 WBC (Bld) 12.8 % [place] MCH (RBC) [Entitic mass] 31.3 pg 27 - 31.3 pg [place] MCHC (RBC) [Mass/Vol] 33.8 % 33 - 37 % [place] MCV (RBC) [Entitic vol] 92.8 fL 80 - 100 fL [place] Monocytes (Bld) [#/Vol] 0.7 10*3/uL 0.2 - 0.8 K/uL [place] Monocytes/100 WBC (Bld) 9.0 % [place] Neutrophils Absolute 5.8 K/uL 1.4 - 6.5 K/uL [place] Neutrophils/100 WBC (Bld) 71.6 % [place] Platelets (Bld) [#/Vol] 169 10*3/uL 130 - 400 K/uL [place] RBC (Bld) [#/Vol] 3.39 10*6/uL Low [place] WBC (Bld) [#/Vol] 8.1 10*3/uL 4.8 - 10.8 K/uL [place] Lactic Acidon 04-09-2019 Lactate [Moles/Vol] 1.8 mmol/L Normal 0.5-2.2 [place] Comment on above: Performed By: #### P GLU #### [facility] [address] [place] [address] Lactate [Moles/Vol] 1.6 mmol/L Normal 0.5-2.2 [facility] Comment on above: Performed By: #### T S3C #### [facility] [address] [place] [address] Lactate [Moles/Vol] 1.4 mmol/L Normal 0.5-2.2 [facility] Comment on above: Performed By: #### T S3C #### [facility] [address] [place] [address] Lactic acid, plasmaon 2018 Lactate [Moles/Vol] 1.6 mmol/L 0.5 - 2.2 mmol/L [place] Lactate [Moles/Vol] 1.4 mmol/L 0.5 - 2.2 mmol/L [place] POCT Glucoseon 04-09-2019 Glucose [Mass/Vol] 379 mg/dL Critically high 60-115 [facility] Comment on above: Performed By: #### P GLU #### [facility] [address] [place] [address] POC Performed on [facility] Comment on above: Performed By: #### P GLU #### [facility] [address] [place] [address] Glucose [Mass/Vol] 379 mg/dL High 60 - 115 mg/dl [place] Interpretation and review of laboratory results Abnormal [place] [facility] [place] [facility] Glucose [Mass/Vol] 329 mg/dL Critically high 60-115 [facility] Comment on above: Performed By: #### P GLU #### [facility] [address] [place] [address] POC Performed on [facility] Comment on above: Performed By: #### P GLU #### [facility] [address] [place] [address] Glucose [Mass/Vol] 329 mg/dL High 60 - 115 mg/dl [place] Interpretation and review of laboratory results Abnormal [place] [facility] Glucose [Mass/Vol] 318 mg/dL Critically high 60-115 [facility] Comment on above: Performed By: #### P GLU #### [facility] [address] [place] [address] POC Performed on [facility] Comment on above: Performed By: #### P GLU #### [facility] [address] [place] [address] Glucose [Mass/Vol] 318 mg/dL High 60 - 115 mg/dl [place] Interpretation and review of laboratory results Abnormal [place] [facility] PROTIME-INRon 04-09-2019 INR Coag (PPP) [Relative time] 1.1 {INR} [place] Comment on above: Warfarin Therapy INR Therapeutic: 2.0-3.0 With Mechanical Valve: >2.5 Low-intensity Therapeutic Range: 1.5-2.0 Mod-intensity Therapeutic Range: 2.0-3.0 High-intensity Therapeutic Range: 2.5-3.5 HIgh-intensity Therapeutic Range: 3.0-4.0 Common Critical/Alarm Value: 5.0 Common Upper Limit Reported: 10.0 Effective 11/26/2018: Please note methodology and/or reference ranges have changed. PT Coag (PPP) [Time] 14.4 s [place] Comment on above: Effective 11/26/18 Please note methodology and/or reference ranges have changed. Procalcitoninon 04-09-2019 Procalcitonin 0.23 ng/mL Critically high 0.00-0.15 [facility] Comment on above: Result Comment: Refe rence Range: Adults: <=0.15 ng/mL Children: 0-18 hours of age: <2.0 ng/mL 18-30 hours of age: <=20 ng/mL 30-72 hours of age: <=0.15 ng/mL >=72 hours: <=0.15 ng/mL Interpretation: General considerations in children older than 72 hours and in adults: <0.15 Significant bacterial infection unlikely. 0.15-2.0 Localized infections may be associated with such borderline levels. >2.0 Highly suggestive of systemic bacterial infections/sepsis or severe localized bacterial infection such as severe pneumonia, meningitis, or peritonitis. With successful antibiotic therapy, PCT levels should fall immediately. (Half-life of 24 to 36 hours). Elevated PCT can occur after major montiel, severe trauma, acute multiorgan failure, major abdominal or cardiothoracic surgery. In cases of noninfectious elevations, PCT levels should begin to fall after 24-48 hours. Autoimmune diseases, chronic inflammatory processes, viral infections, and mild localized bacterial infections rarely lead to elevations of PCT of >0.5 ng/mL. PCT levels may also be elevated in medullary thyroid carcinoma, small cell carcinoma, and renal failure. Performed By: #### T S3C #### [facility] [address] [place] [id number] Interpretation and review of laboratory results Abnormal [place] Procalcitonin 0.23 ng/mL High 0 - 0.15 ng/mL [facility], [place] Comment on above: Reference Range: Adults: <=0.15 ng/mL Children: 0-18 hours of age: <2.0 ng/mL 18-30 hours of age: <=20 ng/mL 30-72 hours of age: <=0.15 ng/mL >=72 hours: <=0.15 ng/mL Interpretation: General considerations in children older than 72 hours and in adults: <0.15 Significant bacterial infection unlikely. 0.15-2.0 Localized infections may be associated with such borderline levels. >2.0 Highly suggestive of systemic bacterial infections/sepsis or severe localized bacterial infection such as severe pneumonia, meningitis, or peritonitis. With successful antibiotic therapy, PCT levels should fall immediately. (Half-life of 24 to 36 hours). Elevated PCT can occur after major montiel, severe trauma, acute multiorgan failure, major abdominal or cardiothoracic surgery. In cases of noninfectious elevations, PCT levels should begin to fall after 24-48 hours. Autoimmune diseases, chronic inflammatory processes, viral infections, and mild localized bacterial infections rarely lead to elevations of PCT of >0.5 ng/mL. PCT levels may also be elevated in medullary thyroid carcinoma, small cell carcinoma, and renal failure. Prothrombin Timeon 9 INR Coag (PPP) [Relative time] 1.1 {INR} Normal [facility] Comment on above: Result Comment: Warf brian Therapy INR Therapeutic: 2.0-3.0 With Mechanical Valve: >2.5 Low-intensity Therapeutic Range: 1.5-2.0 Mod-intensity Therapeutic Range: 2.0-3.0 High-intensity Therapeutic Range: 2.5-3.5 HIgh-intensity Therapeutic Range: 3.0-4.0 Common Critical/Alarm Value: 5.0 Common Upper Limit Reported: 10.0 Effective 11/26/2018: Please note methodology and/or reference ranges have changed. Performed By: #### P GLU #### [facility] [address] [place] [address] PT Coag (PPP) [Time] 14.4 s Normal 12.3-14.9 [facility] Comment on above: Result Comment: Effkarin ctive 11/26/18 Please note methodology and/or reference ranges have changed. Performed By: #### P GLU #### [facility] [address] [place] [address] Urine Cultureon 04-09-2019 Bacteria identified Cx Nom (U) No growth 24 hours [place], [place] DERED BY: JOSE DAVID DAMIAN SOURCE: Urine Clean Catch COLLECTED: 04/07/19 18:30 ANTIBIOTICS AT JIMENA.: RECEIVED : 04/07/19 21:27 [place] BILIRUBIN TOTAL DIRECT & IND IRECTon 04-08-2019 Bilirubin Ql (U) 2.7 mg/dL High 0.2 - 0.7 mg/dL [place] Bilirubin, Indirect 2 mg/dL High 0 - 0.6 mg/dL [place] Bilirubin.direct [Mass/Vol] 0.7 mg/dL High 0 - 0.4 mg/dL [place] Interpretation and review of laboratory results Abnormal [place] Basic Metabolic Panel Reflex Mgon 04-08-2019 Anion gap [Moles/Vol] 9 mmol/L Normal 9-15 [facility] Comment on above: Performed By: #### A 1C #### [facility] [address] [place] [address] Calcium [Mass/Vol] 8.0 mg/dL Low 8.5-9.9 [facility] Comment on above: Performed By: #### A 1C #### [facility] [address] [place] [address] Chloride [Moles/Vol] 99 mmol/L Normal 95-107 [facility] Comment on above: Performed By: #### A 1C #### [facility] [address] [place] [address] CO2 [Moles/Vol] 23 mmol/L Normal 20-31 [facility] Comment on above: Performed By: #### A 1C #### [facility] [address] [place] [address] Creatinine [Mass/Vol] 1.77 mg/dL Critically high 0.70-1.20 [facility] [facility] Comment on above: Performed By: #### A 1C #### [facility] [address] [place] [address] GFR/1.73 sq M predicted among blacks MDRD (S/P/Bld) [Vol rate/Area] 46.4 mL/min/{1.73_m2} Low >60 [facility] Comment on above: Result Comment: >60 mL/min/1.73m2 EGFR, calc. for ages 18 and older using the MDRD formula (not corrected for weight), is valid for stable renal function. Performed By: #### A 1C #### [facility] [address] [place] [address] GFR/1.73 sq M.predicted MDRD (S/P/Bld) [Vol rate/Area] 38.4 mL/min/{1.73_m2} Low >60 [facility] Comment on above: Result Comment: >60 mL/min/1.73m2 EGFR, calc. for ages 18 and older using the MDRD formula (not corrected for weight), is valid for stable renal function. Performed By: #### A 1C #### [facility] [address] [place] [address] Glucose [Mass/Vol] 219 mg/dL Critically high 70-99 [facility] Comment on above: Performed By: #### A 1C #### [facility] [address] [place] [address] Potassium reflex Mg 4.8 mEq/L Normal 3.4-4.9 [facility] Comment on above: Performed By: #### A 1C #### [facility] [address] [place] [address] Sodium [Moles/Vol] 131 mmol/L Low 135-144 [facility] Comment on above: Performed By: #### A 1C #### [facility] [address] [place] [address] Urea nitrogen [Mass/Vol] 18 mg/dL Normal 8-23 [facility] Comment on above: Performed By: #### A 1C #### [facility] [address] [place] [address] Basic Metabolic Panel w/ Ref anthony to MGon 04-08-2019 Anion gap [Moles/Vol] 9 mmol/L [place], [place] Calcium [Mass/Vol] 8.0 mg/dL Low 8.5 - 9.9 mg/dL [place] Chloride [Moles/Vol] 99 mmol/L [place] CO2 [Moles/Vol] 23 mmol/L [place] Creatinine [Mass/Vol] 1.77 mg/dL High 0.7 - 1.2 mg/dL [place] GFR 46.4 Low >60 [place] Comment on above: >60 mL/min/1.73m2 EG FR, calc. for ages 18 and older using the MDRD formula (not corrected for weight), is valid for stable renal function. GFR Non- 38.4 Low >60 [place] Comment on above: >60 mL/min/1.73m2 EG FR, calc. for ages 18 and older using the MDRD formula (not corrected for weight), is valid for stable renal function. Glucose [Mass/Vol] 219 mg/dL High 70 - 99 mg/dL [place] Potassium [Moles/Vol] 4.8 mmol/L [place] Sodium [Moles/Vol] 131 mmol/L [place] Urea nitrogen [Mass/Vol] 18 mg/dL 8 - 23 mg/dL [place] Bilirubin Total, Direct, and Indirecton 04-08-2019 Bilirubin [Mass/Vol] 2.7 mg/dL Critically high 0.2-0.7 [facility] Comment on above: Performed By: #### B MP #### [facility] [address] [facility] [address] Bilirubin Indirect 2.0 mg/dL Critically high 0.0-0.6 [facility] Comment on above: Performed By: #### B MP #### [facility] [address] [facility] [address] Bilirubin.direct [Mass/Vol] 0.7 mg/dL Critically high 0.0-0.4 [facility] Comment on above: Performed By: #### B MP #### [facility] [address] [place] [address] CBC With Platelet and Differ entialon 04-08-2019 Basophils (Bld) [#/Vol] 0.1 10*3/uL Normal 0.0-0.2 [facility] Comment on above: Performed By: #### B MP #### [facility] [address] [place] [address] Basophils/100 WBC (Bld) 0.7 % Normal [facility] Comment on above: Performed By: #### B MP #### [facility] [address] [place] [address] Eosinophils (Bld) [#/Vol] 0.4 10*3/uL Normal 0.0-0.7 [facility] Comment on above: Performed By: #### B MP #### [facility] [address] [place] [address] Eosinophils/100 WBC (Bld) 3.5 % Normal [facility] Comment on above: Performed By: #### B MP #### [facility] [address] [place] [address] Erythrocyte distribution width (RBC) [Ratio] 12.7 % Normal 11.5-14.5 [facility] Comment on above: Performed By: #### B MP #### [facility] [address] [place] [address] Hematocrit (Bld) [Volume fraction] 34.0 % Low 42.0-52.0 [facility] Comment on above: Performed By: #### B MP #### [facility] [address] [place] [address] Hemoglobin (Bld) [Mass/Vol] 11.2 g/dL Low 14.0-18.0 [facility] Comment on above: Performed By: #### B MP #### [facility] [address] [place] [address] Lymphocytes (Bld) [#/Vol] 1.6 10*3/uL Normal 1.0-4.8 [facility] Comment on above: Performed By: #### B MP #### [facility] [address] [place] [address] Lymphocytes/100 WBC (Bld) 13.9 % Normal [facility] Comment on above: Performed By: #### B MP #### [facility] [address] [place] [address] MCH (RBC) [Entitic mass] 30.8 pg Normal 27.0-31.3 [facility] Comment on above: Performed By: #### B MP #### [facility] [address] [place] [address] MCHC (RBC) [Mass/Vol] 32.9 % Low 33.0-37.0 [facility] Comment on above: Performed By: #### B MP #### [facility] [address] [place] [address] MCV (RBC) [Entitic vol] 93.7 fL Normal 80.0-100.0 [facility] Comment on above: Performed By: #### B MP #### [facility] [address] [place] [address] Monocytes (Bld) [#/Vol] 1.1 10*3/uL Critically high 0.2-0.8 [facility] Comment on above: Performed By: #### B MP #### [facility] [address] [place] [address] Monocytes/100 WBC (Bld) 9.6 % Normal [facility] Comment on above: Performed By: #### B MP #### [facility] [address] [place] [address] Neutrophils (Bld) [#/Vol] 8.2 10*3/uL Critically high 1.4-6.5 [facility] Comment on above: Performed By: #### B MP #### [facility] [address] [place] [address] Neutrophils/100 WBC (Bld) 72.3 % Normal [facility] Comment on above: Performed By: #### B MP #### [facility] [address] [place] [address] Platelets (Bld) [#/Vol] 153 10*3/uL Normal 130-400 [facility] Comment on above: Performed By: #### B MP #### [facility] [address] [place] [address] RBC (Bld) [#/Vol] 3.63 10*6/uL Low 4.70-6.10 [facility] Comment on above: Performed By: #### B MP #### [facility] [address] [place] [address] WBC (Bld) [#/Vol] 11.4 10*3/uL Critically high 4.8-10.8 [facility] Comment on above: Performed By: #### B MP #### [facility] [address] [place] [address] CBC auto differentialon 03-20 Basophils (Bld) [#/Vol] 0.1 10*3/uL 0 - 0.2 K/uL [place] Basophils/100 WBC (Bld) 0.7 % [place] Eosinophils (Bld) [#/Vol] 0.4 10*3/uL 0 - 0.7 K/uL [place] Eosinophils/100 WBC (Bld) 3.5 % [place] Erythrocyte distribution width (RBC) [Ratio] 12.7 % 11.5 - 14.5 % [place] Hematocrit (Bld) [Volume fraction] 34.0 % Low 42 - 52 % [place] Hemoglobin (Bld) [Mass/Vol] 11.2 g/dL Low 14 - 18 g/dL [place] Interpretation and review of laboratory results Abnormal [place] Lymphocytes (Bld) [#/Vol] 1.6 10*3/uL 1 - 4.8 K/uL [place] Lymphocytes/100 WBC (Bld) 13.9 % [place] MCH (RBC) [Entitic mass] 30.8 pg 27 - 31.3 pg [place] MCHC (RBC) [Mass/Vol] 32.9 % Low 33 - 37 % [place] MCV (RBC) [Entitic vol] 93.7 fL 80 - 100 fL [place] Monocytes (Bld) [#/Vol] 1.1 10*3/uL High 0.2 - 0.8 K/uL [place] Monocytes/100 WBC (Bld) 9.6 % [place] Neutrophils Absolute 8.2 K/uL High 1.4 - 6.5 K/uL [place] Neutrophils/100 WBC (Bld) 72.3 % [place] Platelets (Bld) [#/Vol] 153 10*3/uL 130 - 400 K/uL [place] RBC (Bld) [#/Vol] 3.63 10*6/uL Low [place] WBC (Bld) [#/Vol] 11.4 10*3/uL High 4.8 - 10.8 K/uL [place] Culture, Respiratoryon 04-08 Culture, Respiratory ORDERED BY: SHANIKA JENNINGS SOURCE: Sputum Expectorated Mouth COLLECTED: 04/08/19 05:06 ANTIBIOTICS AT JIMENA.: RECEIVED : 04/08/19 05:06 Gram Stain Direct FINAL 04/08/19 08:03 Many WBC's Rare epithelial cells Few Budding yeast Culture, Respiratory FINAL 04/10/19 11:39 Usual respiratory rachel with Rare growth Yeast No further workup Normal [facility] Comment on above: Performed By: #### A 1C #### [facility] [address] [place] [address] Hepatic function panelon Albumin [Mass/Vol] 2.8 g/dL Low 3.5 - 4.6 g/dL [place] ALP [Catalytic activity/Vol] 42 U/L 35 - 104 U/L [place] ALT [Catalytic activity/Vol] 28 U/L 0 - 41 U/L [place] AST [Catalytic activity/Vol] 17 U/L 0 - 40 U/L [place] Bilirubin Ql (U) 2.0 mg/dL High 0.2 - 0.7 mg/dL [place] Bilirubin, Indirect 1.4 mg/dL High 0 - 0.6 mg/dL [place] Bilirubin.direct [Mass/Vol] 0.6 mg/dL High 0 - 0.4 mg/dL [place] Protein [Mass/Vol] 5.4 g/dL Low 6.3 - 8 g/dL [place] Influenza A and Bon 04-08-20 Influenza A by PCR Negative Normal [facility] Comment on above: Result Comment: Effe ctive 01/07/19 Please note methodology and/or reference ranges have changed. Performed By: #### B MP #### [facility] [address] [facility] [address] Influenza B by PCR Negative Normal [facility] Comment on above: Result Comment: Effe ctive 01/07/19 Please note methodology and/or reference ranges have changed. Performed By: #### B MP #### [facility] [address] [facility] [address] Lactate, Sepsison 04-08-2019 Lactate, Sepsis 2.1 mmol/L Critically high 0.5-1.9 [facility] Comment on above: Performed By: #### A 1C #### [facility] [address] [place] [address] Interpretation and review of laboratory results Abnormal [place] Lactic Acid, Sepsis 2.1 mmol/L High 0.5 - 1.9 mmol/L [place] Lactate, Sepsis 4.0 mmol/L Critically high 0.5-1.9 [facility] Comment on above: Order Comment: CALL [facility] LC2W tel. [phone],Lactic Acid results called to and read back by Shaq Castillo RN, 04/08/2019 01:55,by CHARLEY Performed By: #### B MP #### [facility] [address] [place] [address] Interpretation and review of laboratory results Abnormal [place] Lactic Acid, Sepsis 4.0 mmol/L Critically high 0.5 - 1.9 mmol/L [place] CALL [facility] LC2W tel. [phone], Lactic Acid results called to and read back by Shaq Castillo RN, 04/08/2019 01:55, by CHARLEY [place] Lactic Acidon 04-08-2019 Lactate [Moles/Vol] 2.7 mmol/L Critically high 0.5-2.2 [place] Comment on above: Performed By: #### T S3C #### [facility] [address] [place] [address] Lactate [Moles/Vol] 1.6 mmol/L Normal 0.5-2.2 [facility] Comment on above: Performed By: #### A 1C #### [facility] [address] [place] [address] Lactic acid, plasmaon 2018 Lactate [Moles/Vol] 1.6 mmol/L 0.5 - 2.2 mmol/L [place] Liver Panelon 04-08-2019 Bilirubin Indirect 1.4 mg/dL Critically high 0.0-0.6 [facility] Comment on above: Performed By: #### A 1C #### [facility] [address] [place] [address] Albumin [Mass/Vol] 2.8 g/dL Low 3.5-4.6 [facility] Comment on above: Performed By: #### A 1C #### [facility] [address] [place] [address] ALP [Catalytic activity/Vol] 42 U/L Normal 35-104 [facility] Comment on above: Performed By: #### A 1C #### [facility] [address] [place] [address] ALT [Catalytic activity/Vol] 28 U/L Normal 0-41 [facility] Comment on above: Performed By: #### A 1C #### [facility] [address] [place] [address] AST [Catalytic activity/Vol] 17 U/L Normal 0-40 [facility] Comment on above: Performed By: #### A 1C #### [facility] [address] [place] [address] Bilirubin [Mass/Vol] 2.0 mg/dL Critically high 0.2-0.7 [facility] Comment on above: Performed By: #### A 1C #### [facility] [address] [place] [address] Bilirubin.direct [Mass/Vol] 0.6 mg/dL Critically high 0.0-0.4 [facility] Comment on above: Performed By: #### A 1C #### [facility] [address] [place] [address] Protein [Mass/Vol] 5.4 g/dL Low 6.3-8.0 [facility] Comment on above: Performed By: #### A 1C #### [facility] [address] [place] [address] MRI LUMBAR SPINE W WO CONTRA STon 04-08-2019 Phillip, Chpo Incoming R adiant Results From [employer] - 04/08/2019 1:24 PM EST Patient : 1950 Age: 68 years Gender: Male Order Date: 04/07/2019 6:30 PM. Exam: MRI LUMBAR SPINE W WO CONTRAST Number of Views: 291 Indication: 2 days status post laminectomy with fever and erythema. Comparison: None Findings: Normal sagittal alignment thoracic/lumbar spine. Heterogeneous bone marrow signal intensity bilaterally. No STIR hyperintensity to suggest an acute fracture or ligamentous injury. Previous laminectomy at L3-L4 and L4-L5. Conus medullaris terminates at approximately T12-L1 motion segment level. Aorta grossly unremarkable. Other paraspinal organs not evaluated. T12-L1: Mild bilateral facet osteoarthropathy. No evidence of posterior disc contour abnormality, spinal canal stenosis, neural foraminal narrowing or spinal nerve root abutment/impingement.. L1-L2: Mild to moderate bilateral facet osteoarthropathy. Circumferential disc bulge with mild bilateral neural foraminal narrowing. No evidence of spinal canal stenosis or spinal nerve abutment/impingement. L2-L3: Moderate circumferential disc bulge, moderate bilateral facet osteoarthropathy, moderate left neural foraminal narrowing. Moderately severe right neural foraminal narrowing. Possible abutment of the exiting right L2 spinal nerve root. No alejandro spinal canal stenosis. L3-L4: Large circumferential disc bulge, severe bilateral facet osteoarthropathy, severe thecal sac stenosis measuring 0.65 cm superior to the laminectomy site with underlying crowding/compression of cauda equina nerve roots. Moderately severe left and right neural foraminal narrowing with abutment/impingement exiting bilateral L3 spinal nerve roots. L4-L5: Decompressive laminectomy noted. Severe bilateral facet osteoarthropathy. Large circumferential disc bulge. Severe bilateral neural foraminal narrowing. Abutment/impingement Bilateral L4 spinal nerve roots. L5-S1: Moderate circumferential disc bulge with a superimposed central disc protrusion also involving the bilateral paracentral and lateral recess regions. Abutment of descending bilateral S1 spinal nerve roots. Moderate left and right neural foraminal narrowing. Moderate bilateral facet osteoarthropathy. Mild thecal sac stenosis measuring 0.93 cm anterior posterior dimension central spinal canal. Postoperative changes are noted. Postcontrast imaging demonstrates enhancement at the laminectomy site but without a drainable fluid collection or abscess at this time. There is enhancement of the paraspinal muscles also noted at the laminectomy site. Enhancement of the superficial subcutaneous fatty tissues also identified. IMPRESSION: 1. Postcontrast enhancement involving the laminectomy site and the adjacent paraspinal muscles and subcutaneous tissues. No drainable fluid collection or abscess. Findings could reflect postoperative change or early infection, correlation with inflammatory/infectious markers is recommended. 2. Multilevel degenerative disc disease and facet osteoarthropathy T12-S1, with severe thecal sac stenosis at L3-L4 just superior to the laminectomy site, crowding and compression of cauda equina nerve roots and abutment/impingement exiting bilateral L3 spinal nerve roots. 3. Superimposed central and bilateral paracentral disc bulge with some extension into the lateral recess regions at L5-S1. Mild thecal sac stenosis. Abutment of descending bilateral S1 spinal nerve roots. 4. Abutment/impingement exiting bilateral L4 spinal nerve roots at L4-L5. No alejandro spinal canal stenosis at this level. 5. Heterogeneity of bone marrow signal intensity This may simply represent red marrow conversion, however, the differential diagnosis also includes more concerning processes such as, but not limited to, hemosiderosis, mastocytosis, multiple myeloma, myelofibrosis, sarcoidosis, hematopoietic hyperplasia, leukemia, lymphoma or metastatic disease. [place] 1. Postcontrast enha ncement involving the laminectomy site and the adjacent paraspinal muscles and subcutaneous tissues. No drainable fluid collection or abscess. Findings could reflect postoperative change or early infection, correlation with inflammatory/infectious markers is recommended. 2. Multilevel degenerative disc disease and facet osteoarthropathy T12-S1, with severe thecal sac stenosis at L3-L4 just superior to the laminectomy site, crowding and compression of cauda equina nerve roots and abutment/impingement exiting bilateral L3 spinal nerve roots. 3. Superimposed central and bilateral paracentral disc bulge with some extension into the lateral recess regions at L5-S1. Mild thecal sac stenosis. Abutment of descending bilateral S1 spinal nerve roots. 4. Abutment/impingement exiting bilateral L4 spinal nerve roots at L4-L5. No alejandro spinal canal stenosis at this level. 5. Heterogeneity of bone marrow signal intensity This may simply represent red marrow conversion, however, the differential diagnosis also includes more concerning processes such as, but not limited to, hemosiderosis, mastocytosis, multiple myeloma, myelofibrosis, sarcoidosis, hematopoietic hyperplasia, leukemia, lymphoma or metastatic disease. [place], [place] Patient 8 : 1950 Age: 68 years Gender: Male Order Date: 04/07/2019 6:30 PM. Exam: MRI LUMBAR SPINE W WO CONTRAST Number of Views: 291 Indication: 2 days status post laminectomy with fever and erythema. Comparison: None Findings: Normal sagittal alignment thoracic/lumbar spine. Heterogeneous bone marrow signal intensity bilaterally. No STIR hyperintensity to suggest an acute fracture or ligamentous injury. Previous laminectomy at L3-L4 and L4-L5. Conus medullaris terminates at approximately T12-L1 motion segment level. Aorta grossly unremarkable. Other paraspinal organs not evaluated. T12-L1: Mild bilateral facet osteoarthropathy. No evidence of posterior disc contour abnormality, spinal canal stenosis, neural foraminal narrowing or spinal nerve root abutment/impingement.. L1-L2: Mild to moderate bilateral facet osteoarthropathy. Circumferential disc bulge with mild bilateral neural foraminal narrowing. No evidence of spinal canal stenosis or spinal nerve abutment/impingement. L2-L3: Moderate circumferential disc bulge, moderate bilateral facet osteoarthropathy, moderate left neural foraminal narrowing. Moderately severe right neural foraminal narrowing. Possible abutment of the exiting right L2 spinal nerve root. No alejandro spinal canal stenosis. L3-L4: Large circumferential disc bulge, severe bilateral facet osteoarthropathy, severe thecal sac stenosis measuring 0.65 cm superior to the laminectomy site with underlying crowding/compression of cauda equina nerve roots. Moderately severe left and right neural foraminal narrowing with abutment/impingement exiting bilateral L3 spinal nerve roots. L4-L5: Decompressive laminectomy noted. Severe bilateral facet osteoarthropathy. Large circumferential disc bulge. Severe bilateral neural foraminal narrowing. Abutment/impingement Bilateral L4 spinal nerve roots. L5-S1: Moderate circumferential disc bulge with a superimposed central disc protrusion also involving the bilateral paracentral and lateral recess regions. Abutment of descending bilateral S1 spinal nerve roots. Moderate left and right neural foraminal narrowing. Moderate bilateral facet osteoarthropathy. Mild thecal sac stenosis measuring 0.93 cm anterior posterior dimension central spinal canal. Postoperative changes are noted. Postcontrast imaging demonstrates enhancement at the laminectomy site but without a drainable fluid collection or abscess at this time. There is enhancement of the paraspinal muscles also noted at the laminectomy site. Enhancement of the superficial subcutaneous fatty tissues also identified. [place] Otheron 04-08-2019 Interpretation and review of laboratory results Abnormal [place] Interpretation and review of laboratory results Abnormal [place] POCT Glucoseon 04-08-2019 Glucose [Mass/Vol] 294 mg/dL Critically high 60-115 [facility] Comment on above: Performed By: #### T S3C #### [facility] [address] [place] [id number] [phone] POC Performed on ACCU-CHEK Normal [facility] Comment on above: Performed By: #### T S3C #### [facility] [address] [place] [address] Glucose [Mass/Vol] 294 mg/dL High 60 - 115 mg/dl [facility] [place], [place] Performed on ACCU-CHEK [facility] [place], [place] Glucose [Mass/Vol] 301 mg/dL Critically high 60-115 [facility] Comment on above: Performed By: #### T S3C #### [facility] [address] [place] [address] POC Performed on ACCU-CHEK Normal [facility] Comment on above: Performed By: #### T S3C #### [facility] [address] [place] [address] Glucose [Mass/Vol] 301 mg/dL High 60 - 115 mg/dl [place] Interpretation and review of laboratory results Abnormal [facility], [place] Performed on ACCU-CHEK [facility], [place] Glucose [Mass/Vol] 210 mg/dL Critically high 60-115 [facility] Comment on above: Performed By: #### A 1C #### [facility] [address] [place] [address] POC Performed on ACCU-CHE Normal [facility] Comment on above: Performed By: #### A 1C #### [facility] [address] [place] [address] Glucose [Mass/Vol] 210 mg/dL High 60 - 115 mg/dl [place] Interpretation and review of laboratory results Abnormal [facility], [place] Performed on ACCU-CHEK [facility], [place] Glucose [Mass/Vol] 214 mg/dL Critically high 60-115 [facility] Comment on above: Performed By: #### A 1C #### [facility] [address] [place] [address] POC [facility] Normal [facility] Comment on above: Performed By: #### A 1C #### [facility] [address] [place] [address] Glucose [Mass/Vol] 214 mg/dL High 60 - 115 mg/dl [place] Interpretation and review of laboratory results Abnormal [place] Performed on ACCU-CHEK [place] POCT Venouson 04-08-2019 Creatinine [Mass/Vol] 1.7 mg/dL Critically high 0.8-1.3 [facility] Comment on above: Performed By: #### B MP #### [facility] [address] [facility] [address] GFR/1.73 sq M predicted among blacks MDRD (S/P/Bld) [Vol rate/Area] 49 mL/min/{1.73_m2} Abnormal >60 [facility] Comment on above: Result Comment: >60 mL/min/1.73m2 EGFR, calc. for ages 18 and older using the MDRD formula (not corrected for weight), is valid for stable renal function. Performed By: #### B MP #### [facility] [address] [facility] [address] GFR/1.73 sq M.predicted MDRD (S/P/Bld) [Vol rate/Area] 40 mL/min/{1.73_m2} Abnormal >60 [facility] Comment on above: Result Comment: >60 mL/min/1.73m2 EGFR, calc. for ages 18 and older using the MDRD formula (not corrected for weight), is valid for stable renal function. Performed By: #### B MP #### [facility] [address] [facility] [address] Glucose [Mass/Vol] 233 mg/dL Critically high 60-115 [facility] Comment on above: Performed By: #### B MP #### [facility] [address] [facility] [address] Hematocrit (Bld) [Volume fraction] 33 % Low 41-53 [facility] Comment on above: Performed By: #### B MP #### [facility] [address] [facility] [address] Hemoglobin (Bld) [Mass/Vol] 11.2 g/dL Low 13.5-17.5 [facility] Comment on above: Performed By: #### B MP #### [facility] [address] [place] [address] Oxygen saturation in Blood 42 % Normal Not Establ [facility] Comment on above: Performed By: #### B MP #### [facility] [address] [place] [address] POC Calciuim Ionized 1.05 mmol/L Low 1.12-1.32 [facility] Comment on above: Performed By: #### B MP #### [facility] [address] [place] [address] POC Cl 101 mEq/L Normal 99-110 [facility] Comment on above: Performed By: #### B MP #### [facility] [address] [place] [address] POC FIO2 28.000 Normal [facility] Comment on above: Performed By: #### B MP #### [facility] [address] [place] [address] POC K 4.4 mEq/L Normal 3.5-5.1 [facility] Comment on above: Performed By: #### B MP #### [facility] [address] [place] [address] POC Lactic Acid 3.67 mmol/L Critically high 0.40-2.00 [facility] Comment on above: Performed By: #### B MP #### [facility] [address] [place] [address] POC Na 133 mEq/L Low 136-145 [facility] Comment on above: Performed By: #### B MP #### [facility] [address] [place] [address] POC Performed on SEE BELOW Normal [facility] Comment on above: Result Comment: Perf ormed on POC Sample Type: Venous Oxygen Delivery System: Cannula Performed By: #### B MP #### [facility] [address] [place] [address] POC Sample Type ROMERO Normal [facility] Comment on above: Performed By: #### B MP #### [facility] [address] [place] [address] POC Venous Base Excess -6 Low -3-3 [facility] Comment on above: Performed By: #### B MP #### [facility] [address] [place] [address] POC Venous HCO3 20.7 mmol/L Low 23.0-29.0 [facility] Comment on above: Performed By: #### B MP #### [facility] [address] [place] [address] POC Venous PCO2 43.9 mm Hg Normal 40.0-50.0 [facility] Comment on above: Performed By: #### B MP #### [facility] [address] [place] [address] POC Venous pH 7.282 Low 7.350-7.45 [facility] Comment on above: Performed By: #### B MP #### [facility] [address] [place] [address] POC Venous PO2 27 mm Hg Normal Not [facility] Comment on above: Performed By: #### B MP #### [facility] [address] [place] [address] POC Venous Total CO2 22 mmol/L Normal Not [facility] Comment on above: Performed By: #### B MP #### [facility] [address] [place] [address] Prothrombin Timeon 9 INR Coag (PPP) [Relative time] 1.2 {INR} Normal [facility] Comment on above: Result Comment: Warf brian Therapy INR Therapeutic: 2.0-3.0 With Mechanical Valve: >2.5 Low-intensity Therapeutic Range: 1.5-2.0 Mod-intensity Therapeutic Range: 2.0-3.0 High-intensity Therapeutic Range: 2.5-3.5 HIgh-intensity Therapeutic Range: 3.0-4.0 Common Critical/Alarm Value: 5.0 Common Upper Limit Reported: 10.0 Effective 11/26/2018: Please note methodology and/or reference ranges have changed. Performed By: #### A 1C #### [facility] [address] [place] [address] PT Coag (PPP) [Time] 15.4 s Critically high 12.3-14.9 [facility] Comment on above: Result Comment: Effe ctive 11/26/18 Please note methodology and/or reference ranges have changed. Performed By: #### A 1C #### [facility] [address] [facility] [address] Protime-INRon 04-08-2019 INR Coag (PPP) [Relative time] 1.2 {INR} [place] Comment on above: Warfarin Therapy INR Therapeutic: 2.0-3.0 With Mechanical Valve: >2.5 Low-intensity Therapeutic Range: 1.5-2.0 Mod-intensity Therapeutic Range: 2.0-3.0 High-intensity Therapeutic Range: 2.5-3.5 HIgh-intensity Therapeutic Range: 3.0-4.0 Common Critical/Alarm Value: 5.0 Common Upper Limit Reported: 10.0 Effective 11/26/2018: Please note methodology and/or reference ranges have changed. PT Coag (PPP) [Time] 15.4 s High [facility] [place] Comment on above: Effective 11/26/18 Please note methodology and/or reference ranges have changed. XR CHEST PORTABLEon 04-08-20 19 Patient 8 : 1950 Age: 68 years Gender: Male Order Date: 04/07/2019 6:30 PM. Exam: XR CHEST PORTABLE Number of Views: 1 Indication: Fever Comparison: None. Findings: Cardiomediastinal silhouette is within normal limits. Lungs are clear without evidence of infiltrate/pneumonia, pneumothorax or pleural effusion [facility], [place], [place] Incoming R adiant Results From Airpowered/PacFohBoh - 04/08/2019 7:15 AM EST Patient : 1950 Age: 68 years Gender: Male Order Date: 04/07/2019 6:30 PM. Exam: XR CHEST PORTABLE Number of Views: 1 Indication: Fever Comparison: None. Findings: Cardiomediastinal silhouette is within normal limits. Lungs are clear without evidence of infiltrate/pneumonia, pneumothorax or pleural effusion IMPRESSION: Impression: No radiographic evidence of acute cardiopulmonary disease [place], [place] Impression: No radio graphic evidence of acute cardiopulmonary disease [place] APTTon 04-07-2019 aPTT Coag (Bld) [Time] 36.7 s [place] Comment on above: Effective 12/03/2018: Please note methodology and/or reference ranges have changed. aPTT - Heparin Therapeutic Range: 74.0 - 106 seconds Brain Natriuretic Peptideon 04-07-2019 Natriuretic peptide B (Bld) [Mass/Vol] 597 pg/mL [place] Comment on above: NT-pro BNP ACUTE Int erpretive Guidelines: Age Cutoff for Heart Failure Less than 50 yrs 450 pg/mL 50-75 yrs 900 pg/mL Greater than 75 yrs 1800 pg/mL NT-pro BNP NON-ACUTE Interpretive Guidelines: Age Reference Range Less than 74 yrs 0-125 pg/mL Greater than 74 yrs 0-450 pg/mL Other possible causes of an elevated NT-proBNP include: cardiac ischemia, acute coronary syndrome, COPD, pneumonia, atrial fibrillation, pulmonary emboli, pulmonary hypertension, pericarditis Reference: Alondra Macias et al. NT-proBNP testing for diagnosis and short-term prognosis in acute destabilized HF: an international pooled analysis of 1256 patients. Heart Journal. 2006;27:330-337 CBC Auto Differentialon 03-20 Basophils (Bld) [#/Vol] 0.1 10*3/uL 0 - 0.2 K/uL [place] Basophils/100 WBC (Bld) 1.0 % [place] Eosinophils (Bld) [#/Vol] 0.4 10*3/uL 0 - 0.7 K/uL [place] Eosinophils/100 WBC (Bld) 3.1 % [place] Erythrocyte distribution width (RBC) [Ratio] 12.9 % 11.5 - 14.5 % [place] Hematocrit (Bld) [Volume fraction] 39.9 % Low 42 - 52 % [place] Hemoglobin (Bld) [Mass/Vol] 13.5 g/dL Low 14 - 18 g/dL [place] Interpretation and review of laboratory results Abnormal [place] Lymphocytes (Bld) [#/Vol] 1.6 10*3/uL 1 - 4.8 K/uL [place] Lymphocytes/100 WBC (Bld) 13.4 % [place] MCH (RBC) [Entitic mass] 30.7 pg 27 - 31.3 pg [place] MCHC (RBC) [Mass/Vol] 33.8 % 33 - 37 % [place] MCV (RBC) [Entitic vol] 90.7 fL 80 - 100 fL [place] Monocytes (Bld) [#/Vol] 0.9 10*3/uL High 0.2 - 0.8 K/uL [place] Monocytes/100 WBC (Bld) 7.9 % [place] Neutrophils Absolute 8.9 K/uL High 1.4 - 6.5 K/uL [place] Neutrophils/100 WBC (Bld) 74.6 % [place] Platelets (Bld) [#/Vol] 178 10*3/uL 130 - 400 K/uL [place] RBC (Bld) [#/Vol] 4.40 10*6/uL Low [place] WBC (Bld) [#/Vol] 11.9 10*3/uL High 4.8 - 10.8 K/uL [place] CBC With Platelet and Differ entialon 04-07-2019 Basophils (Bld) [#/Vol] 0.1 10*3/uL Normal 0.0-0.2 [facility] Comment on above: Performed By: #### C BCWD #### [facility] [address] [place] [address] Basophils/100 WBC (Bld) 1.0 % Normal [facility] Comment on above: Performed By: #### C BCWD #### [facility] [address] [place] [address] Eosinophils (Bld) [#/Vol] 0.4 10*3/uL Normal 0.0-0.7 [facility] Comment on above: Performed By: #### C BCWD #### [facility] [address] [place] [address] Eosinophils/100 WBC (Bld) 3.1 % Normal [facility] Comment on above: Performed By: #### C BCWD #### [facility] [address] [place] [address] Erythrocyte distribution width (RBC) [Ratio] 12.9 % Normal 11.5-14.5 [facility] Comment on above: Performed By: #### C BCWD #### [facility] [address] [place] [address] Hematocrit (Bld) [Volume fraction] 39.9 % Low 42.0-52.0 [facility] Comment on above: Performed By: #### C BCWD #### [facility] [address] [place] [address] Hemoglobin (Bld) [Mass/Vol] 13.5 g/dL Low 14.0-18.0 [facility] Comment on above: Performed By: #### C BCWD #### [facility] [address] [place] [address] Lymphocytes (Bld) [#/Vol] 1.6 10*3/uL Normal 1.0-4.8 [facility] Comment on above: Performed By: #### C BCWD #### [facility] [address] [place] [address] Lymphocytes/100 WBC (Bld) 13.4 % Normal [facility] Comment on above: Performed By: #### C BCWD #### [facility] [address] [place] [address] MCH (RBC) [Entitic mass] 30.7 pg Normal 27.0-31.3 [facility] Comment on above: Performed By: #### C BCWD #### [facility] [address] [place] [address] MCHC (RBC) [Mass/Vol] 33.8 % Normal 33.0-37.0 [facility] Comment on above: Performed By: #### C BCWD #### [facility] [address] [place] [address] MCV (RBC) [Entitic vol] 90.7 fL Normal 80.0-100.0 [facility] Comment on above: Performed By: #### C BCWD #### [facility] [address] [place] [address] Monocytes (Bld) [#/Vol] 0.9 10*3/uL Critically high 0.2-0.8 [facility] Comment on above: Performed By: #### C BCWD #### [facility] [address] [place] [address] Monocytes/100 WBC (Bld) 7.9 % Normal [facility] Comment on above: Performed By: #### C BCWD #### [facility] [address] [place] [address] Neutrophils (Bld) [#/Vol] 8.9 10*3/uL Critically high 1.4-6.5 [facility] Comment on above: Performed By: #### C BCWD #### [facility] [address] [place] [address] Neutrophils/100 WBC (Bld) 74.6 % Normal [facility] Comment on above: Performed By: #### C BCWD #### [facility] [address] [place] [address] Platelets (Bld) [#/Vol] 178 10*3/uL Normal 130-400 [facility] Comment on above: Performed By: #### C BCWD #### [facility] [address] [place] [address] RBC (Bld) [#/Vol] 4.40 10*6/uL Low 4.70-6.10 [facility] Comment on above: Performed By: #### C BCWD #### [facility] [address] [place] [address] WBC (Bld) [#/Vol] 11.9 10*3/uL Critically high 4.8-10.8 [facility] Comment on above: Performed By: #### C BCWD #### [facility] [address] [place] [address] CKon 04-07-2019 Total CK 255 U/L High 0 - 190 U/L [place] CKMB & RELATIVE PERCENTon CK.MB [Mass/Vol] 0.7 % 0 - 3.5 % [place] CK.MB [Mass/Vol] 1.8 ng/mL 0 - 6.7 ng/mL [place] CKMB and Relative Percenton 04-07-2019 CK.MB [Mass/Vol] 0.7 % Normal 0.0-3.5 [facility] Comment on above: Performed By: #### B MP #### [facility] [address] [place] [address] CK.MB [Mass/Vol] 1.8 ng/mL Normal 0.0-6.7 [facility] Comment on above: Performed By: #### B MP #### [facility] [address] [place] [address] Comprehensive Metabolic Pane harmony 04-07-2019 Albumin [Mass/Vol] 3.7 g/dL Normal 3.5-4.6 [facility] Comment on above: Performed By: #### P T #### [facility] [address] [place] [address] ALP [Catalytic activity/Vol] 52 U/L Normal 35-104 [facility] Comment on above: Performed By: #### P T #### [facility] [address] [place] [address] ALT [Catalytic activity/Vol] 41 U/L Normal 0-41 [facility] Comment on above: Performed By: #### P T #### [facility] [address] [place] [address] Anion gap [Moles/Vol] 12 mmol/L Normal 9-15 [facility] Comment on above: Performed By: #### P T #### [facility] [address] [place] [address] AST [Catalytic activity/Vol] 27 U/L Normal 0-40 [facility] Comment on above: Performed By: #### P T #### [facility] [address] [place] [address] Bilirubin [Mass/Vol] 2.6 mg/dL Critically high 0.2-0.7 [facility] Comment on above: Performed By: #### P T #### [facility] [address] [place] [address] Calcium [Mass/Vol] 8.9 mg/dL Normal 8.5-9.9 [facility] Comment on above: Performed By: #### P T #### [facility] [address] [place] [address] Chloride [Moles/Vol] 93 mmol/L Low 95-107 [facility] Comment on above: Performed By: #### P T #### [facility] [address] [place] [address] CO2 [Moles/Vol] 23 mmol/L Normal 20-31 [facility] Comment on above: Performed By: #### P T #### [facility] [address] [place] [address] Creatinine [Mass/Vol] 1.97 mg/dL Critically high 0.70-1.20 [facility] Comment on above: Performed By: #### P T #### [facility] [address] [place] [address] GFR/1.73 sq M predicted among blacks MDRD (S/P/Bld) [Vol rate/Area] 41.0 mL/min/{1.73_m2} Low >60 [facility] Comment on above: Result Comment: >60 mL/min/1.73m2 EGFR, calc. for ages 18 and older using the MDRD formula (not corrected for weight), is valid for stable renal function. Performed By: #### P T #### [facility] [address] [place] [address] GFR/1.73 sq M.predicted MDRD (S/P/Bld) [Vol rate/Area] 33.9 mL/min/{1.73_m2} Low >60 [facility] Comment on above: Result Comment: >60 mL/min/1.73m2 EGFR, calc. for ages 18 and older using the MDRD formula (not corrected for weight), is valid for stable renal function. Performed By: #### P T #### [facility] [address] [place] [address] Globulin (S) [Mass/Vol] 3.0 g/dL Normal 2.3-3.5 [facility] Comment on above: Performed By: #### P T #### [facility] [address] [place] [address] Glucose [Mass/Vol] 281 mg/dL Critically high 70-99 [facility] Comment on above: Performed By: #### P T #### [facility] [address] [place] [address] Potassium [Moles/Vol] 5.9 mmol/L Critically high 3.4-4.9 [facility] Comment on above: Performed By: #### P T #### [facility] [address] [place] [address] Protein [Mass/Vol] 6.7 g/dL Normal 6.3-8.0 [facility] Comment on above: Performed By: #### P T #### [facility] [address] [place] [address] Sodium [Moles/Vol] 128 mmol/L Low 135-144 [facility] Comment on above: Performed By: #### P T #### [facility] [address] [place] [address] Urea nitrogen [Mass/Vol] 20 mg/dL Normal 8-23 [facility] Comment on above: Performed By: #### P T #### [facility] [address] [place] [address] Albumin [Mass/Vol] 3.7 g/dL 3.5 - 4.6 g/dL [place] ALP [Catalytic activity/Vol] 52 U/L 35 - 104 U/L [place] ALT [Catalytic activity/Vol] 41 U/L 0 - 41 U/L [place] Anion gap [Moles/Vol] 12 mmol/L [place] AST [Catalytic activity/Vol] 27 U/L 0 - 40 U/L [place] Bilirubin Ql (U) 2.6 mg/dL High 0.2 - 0.7 mg/dL [place] Calcium [Mass/Vol] 8.9 mg/dL 8.5 - 9.9 mg/dL [place] Chloride [Moles/Vol] 93 mmol/L Low [place] CO2 [Moles/Vol] 23 mmol/L [place] Creatinine [Mass/Vol] 1.97 mg/dL High 0.7 - 1.2 mg/dL [place] GFR 41 Low >60 [place] Comment on above: >60 mL/min/1.73m2 EG FR, calc. for ages 18 and older using the MDRD formula (not corrected for weight), is valid for stable renal function. GFR Non- 33.9 Low >60 [place] Comment on above: >60 mL/min/1.73m2 EG FR, calc. for ages 18 and older using the MDRD formula (not corrected for weight), is valid for stable renal function. Globulin (S) [Mass/Vol] 3 g/dL 2.3 - 3.5 g/dL [place] Glucose [Mass/Vol] 281 mg/dL High 70 - 99 mg/dL [place] Potassium [Moles/Vol] 5.9 mmol/L High [place] Protein [Mass/Vol] 6.7 g/dL 6.3 - 8 g/dL [place] Sodium [Moles/Vol] 128 mmol/L Low [place] Urea nitrogen [Mass/Vol] 20 mg/dL 8 - 23 mg/dL [place] Creatine Kinaseon 04-07-2019 CK [Catalytic activity/Vol] 255 U/L Critically high 0-190 [facility] Comment on above: Performed By: #### P T #### [facility] [address] [place] [address] Culture, Blood 2on 9 Culture, Blood 2 OR DERED BY: JOSE DAVID DAMIAN SOURCE: Blood COLLECTED: 04/07/19 18:56 ANTIBIOTICS AT JIMENA.: RECEIVED : 04/07/19 19:04 Culture, Blood 2 FINAL 04/12/19 20:15 No growth after 5 days of incubation. Normal [facility] Comment on above: Performed By: #### T S3C #### [facility] [address] [place] [address] Culture, Urineon 04-07-2019 Culture, Urine OR DERED BY: JOSE DAVID DAMIAN SOURCE: Urine Clean Catch COLLECTED: 04/07/19 18:30 ANTIBIOTICS AT JIMENA.: RECEIVED : 04/07/19 21:27 Culture, Urine FINAL 04/09/19 10:13 No growth 24 hours Normal [facility] Comment on above: Performed By: #### P GLU #### [facility] [address] [place] [id number] Lactate, Sepsison 04-07-2019 Lactate, Sepsis 3.4 mmol/L Critically high 0.5-1.9 [facility] Comment on above: Order Comment: CALL [facility] tel. [phone],Lactic acid result called to and read back by ROSA Damian, 04/07/2019 19:56,by VIANEY Performed By: #### B MP #### [facility] [address] [place] [address] Interpretation and review of laboratory results Abnormal [place] Lactic Acid, Sepsis 3.4 mmol/L Critically high 0.5 - 1.9 mmol/L [place] CALL [facility] tel. [phone], Lactic acid result called to and read back by ROSA Damian, 04/07/2019 19:56, by VIANEY [place] Lactic Acidon 04-07-2019 Lactate [Moles/Vol] 2.9 mmol/L Critically high 0.5-2.2 [facility] Comment on above: Performed By: #### B MP #### [facility] [address] [place] [address] Lactic Acid, Plasmaon 2018 Interpretation and review of laboratory results Abnormal [place] Lactate [Moles/Vol] 2.9 mmol/L High 0.5 - 2.2 mmol/L [place] Lipaseon 04-07-2019 Lipase [Catalytic activity/Vol] 25 U/L Normal 12-95 [facility] Comment on above: Performed By: #### P T #### [facility] [address] [place] [address] Lipase [Catalytic activity/Vol] 25 U/L 12 - 95 U/L [place] MRI LUMBAR SPINE W WO CONTRA STon 04-07-2019 MRI LUMBAR SPINE W WO CONTRAST Patient : 1950 Age: 68 years Gender: Male Order Date: 04/07/2019 6:30 PM. Exam: MRI LUMBAR SPINE W WO CONTRAST Number of Views: 291 Indication: 2 days status post laminectomy with fever and erythema. Comparison: None Findings: Normal sagittal alignment thoracic/lumbar spine. Heterogeneous bone marrow signal intensity bilaterally. No STIR hyperintensity to suggest an acute fracture or ligamentous injury. Previous laminectomy at L3-L4 and L4-L5. Conus medullaris terminates at approximately T12-L1 motion segment level. Aorta grossly unremarkable. Other paraspinal organs not evaluated. T12-L1: Mild bilateral facet osteoarthropathy. No evidence of posterior disc contour abnormality, spinal canal stenosis, neural foraminal narrowing or spinal nerve root abutment/impingement.. L1-L2: Mild to moderate bilateral facet osteoarthropathy. Circumferential disc bulge with mild bilateral neural foraminal narrowing. No evidence of spinal canal stenosis or spinal nerve abutment/impingement. L2-L3: Moderate circumferential disc bulge, moderate bilateral facet osteoarthropathy, moderate left neural foraminal narrowing. Moderately severe right neural foraminal narrowing. Possible abutment of the exiting right L2 spinal nerve root. No alejandro spinal canal stenosis. L3-L4: Large circumferential disc bulge, severe bilateral facet osteoarthropathy, severe thecal sac stenosis measuring 0.65 cm superior to the laminectomy site with underlying crowding/compression of cauda equina nerve roots. Moderately severe left and right neural foraminal narrowing with abutment/impingement exiting bilateral L3 spinal nerve roots. L4-L5: Decompressive laminectomy noted. Severe bilateral facet osteoarthropathy. Large circumferential disc bulge. Severe bilateral neural foraminal narrowing. Abutment/impingement Bilateral L4 spinal nerve roots. L5-S1: Moderate circumferential disc bulge with a superimposed central disc protrusion also involving the bilateral paracentral and lateral recess regions. Abutment of descending bilateral S1 spinal nerve roots. Moderate left and right neural foraminal narrowing. Moderate bilateral facet osteoarthropathy. Mild thecal sac stenosis measuring 0.93 cm anterior posterior dimension central spinal canal. Postoperative changes are noted. Postcontrast imaging demonstrates enhancement at the laminectomy site but without a drainable fluid collection or abscess at this time. There is enhancement of the paraspinal muscles also noted at the laminectomy site. Enhancement of the superficial subcutaneous fatty tissues also identified. IMPRESSION: 1. Postcontrast enhancement involving the laminectomy site and the adjacent paraspinal muscles and subcutaneous tissues. No drainable fluid collection or abscess. Findings could reflect postoperative change or early infection, correlation with inflammatory/infectious markers is recommended. 2. Multilevel degenerative disc disease and facet osteoarthropathy T12-S1, with severe thecal sac stenosis at L3-L4 just superior to the laminectomy site, crowding and compression of cauda equina nerve roots and abutment/impingement exiting bilateral L3 spinal nerve roots. 3. Superimposed central and bilateral paracentral disc bulge with some extension into the lateral recess regions at L5-S1. Mild thecal sac stenosis. Abutment of descending bilateral S1 spinal nerve roots. 4. Abutment/impingement exiting bilateral L4 spinal nerve roots at L4-L5. No alejandro spinal canal stenosis at this level. 5. Heterogeneity of bone marrow signal intensity This may simply represent red marrow conversion, however, the differential diagnosis also includes more concerning processes such as, but not limited to, hemosiderosis, mastocytosis, multiple myeloma, myelofibrosis, sarcoidosis, hematopoietic hyperplasia, leukemia, lymphoma or metastatic disease. Interpreted by: Fabio Bautista MD Signed by: Fabio Bautista MD 04/08/19 Final result Normal [facility] Magnesiumon 04-07-2019 Magnesium [Mass/Vol] 1.7 mg/dL Normal 1.7-2.4 [facility] Comment on above: Performed By: #### P T #### [facility] [address] [place] [address] Magnesium [Mass/Vol] 1.7 mg/dL 1.7 - 2.4 mg/dL [place] Microscopic Urinalysison Bacteria, UA Negative /HPF [place] Epi Cells 0-2 [place] Hyaline Casts, UA 5-10 [place] RBC (U) [#/Vol] 0-2 [place] WBC, UA 0-2 [place] Otheron 04-07-2019 Interpretation and review of laboratory results Abnormal [place] Interpretation and review of laboratory results Abnormal [place] POCT Venouson 04-07-2019 Base Excess, Romero -6 Low [place] Calcium [Mass/Vol] 1.05 mmol/L Low 1.12 - 1.32 mmol/L [place] Chloride [Moles/Vol] 101 mmol/L [place] Creatinine [Mass/Vol] 1.7 mg/dL High 0.8 - 1.3 mg/dL [place] FIO2 28 [place] GFR 49 Abnormal >60 [place] Comment on above: >60 mL/min/1.73m2 EG FR, calc. for ages 18 and older using the MDRD formula (not corrected for weight), is valid for stable renal function. GFR Non- 40 Abnormal >60 [place] Comment on above: >60 mL/min/1.73m2 EG FR, calc. for ages 18 and older using the MDRD formula (not corrected for weight), is valid for stable renal function. Glucose [Mass/Vol] 233 mg/dL High 60 - 115 mg/dl [place] HCO3, Venous 20.7 mmol/L Low 23 - 29 mmol/L [place] Hematocrit (Bld) [Volume fraction] 33 % Low 41 - 53 % [place] Hemoglobin (Bld) [Mass/Vol] 11.2 g/dL Low [place] Interpretation and review of laboratory results Abnormal [place] Lactate [Moles/Vol] 3.67 mmol/L High 0.4 - 2 mmol/L [place] Oxygen saturation in Blood 42 % Not Established [place] pCO2, Romero 43.9 [place] Performed on SEE BELOW [place] Comment on above: Performed on POC Sample Type: Venous Oxygen Delivery System: Cannula pH, Romero 7.282 Low [place] pO2, Romero 27 Not Established mm Hg [place] Potassium [Moles/Vol] 4.4 mmol/L [place] Sample Type ROMERO [place] Sodium [Moles/Vol] 133 mmol/L [place] TC02 (Calc), Romero 22 mmol/L Not Established [place] Partial Thromboplastin Timeo n 04-07-2019 aPTT Coag (Bld) [Time] 36.7 s Normal 24.4-36.8 [facility] Comment on above: Result Comment: Koko ctive 12/03/2018: Please note methodology and/or reference ranges have changed. aPTT - Heparin Therapeutic Range: 74.0 - 106 seconds Performed By: #### P T #### [facility] [address] [place] [address] Procalcitoninon 04-07-2019 Procalcitonin 0.55 ng/mL Critically high 0.00-0.15 [facility] Comment on above: Result Comment: Refe rence Range: Adults: <=0.15 ng/mL Children: 0-18 hours of age: <2.0 ng/mL 18-30 hours of age: <=20 ng/mL 30-72 hours of age: <=0.15 ng/mL >=72 hours: <=0.15 ng/mL Interpretation: General considerations in children older than 72 hours and in adults: <0.15 Significant bacterial infection unlikely. 0.15-2.0 Localized infections may be associated with such borderline levels. >2.0 Highly suggestive of systemic bacterial infections/sepsis or severe localized bacterial infection such as severe pneumonia, meningitis, or peritonitis. With successful antibiotic therapy, PCT levels should fall immediately. (Half-life of 24 to 36 hours). Elevated PCT can occur after major montiel, severe trauma, acute multiorgan failure, major abdominal or cardiothoracic surgery. In cases of noninfectious elevations, PCT levels should begin to fall after 24-48 hours. Autoimmune diseases, chronic inflammatory processes, viral infections, and mild localized bacterial infections rarely lead to elevations of PCT of >0.5 ng/mL. PCT levels may also be elevated in medullary thyroid carcinoma, small cell carcinoma, and renal failure. Performed By: #### P T #### [facility] [address] [facility] [place] [address] Procalcitonin 0.55 ng/mL High 0 - 0.15 ng/mL [facility] [place] Comment on above: Reference Range: Adults: <=0.15 ng/mL Children: 0-18 hours of age: <2.0 ng/mL 18-30 hours of age: <=20 ng/mL 30-72 hours of age: <=0.15 ng/mL >=72 hours: <=0.15 ng/mL Interpretation: General considerations in children older than 72 hours and in adults: <0.15 Significant bacterial infection unlikely. 0.15-2.0 Localized infections may be associated with such borderline levels. >2.0 Highly suggestive of systemic bacterial infections/sepsis or severe localized bacterial infection such as severe pneumonia, meningitis, or peritonitis. With successful antibiotic therapy, PCT levels should fall immediately. (Half-life of 24 to 36 hours). Elevated PCT can occur after major montiel, severe trauma, acute multiorgan failure, major abdominal or cardiothoracic surgery. In cases of noninfectious elevations, PCT levels should begin to fall after 24-48 hours. Autoimmune diseases, chronic inflammatory processes, viral infections, and mild localized bacterial infections rarely lead to elevations of PCT of >0.5 ng/mL. PCT levels may also be elevated in medullary thyroid carcinoma, small cell carcinoma, and renal failure. Prothrombin Timeon 9 INR Coag (PPP) [Relative time] 1.2 {INR} Normal [facility] Comment on above: Result Comment: Warf brian Therapy INR Therapeutic: 2.0-3.0 With Mechanical Valve: >2.5 Low-intensity Therapeutic Range: 1.5-2.0 Mod-intensity Therapeutic Range: 2.0-3.0 High-intensity Therapeutic Range: 2.5-3.5 HIgh-intensity Therapeutic Range: 3.0-4.0 Common Critical/Alarm Value: 5.0 Common Upper Limit Reported: 10.0 Effective 11/26/2018: Please note methodology and/or reference ranges have changed. Performed By: #### P T #### [facility] [address] [facility] [address] PT Coag (PPP) [Time] 15.7 s Critically high 12.3-14.9 [facility] Comment on above: Result Comment: Effe ctive 11/26/18 Please note methodology and/or reference ranges have changed. Performed By: #### P T #### [facility] [address] [facility] [address] Protime-INRon 04-07-2019 INR Coag (PPP) [Relative time] 1.2 {INR} [facility] [place] Comment on above: Warfarin Therapy INR Therapeutic: 2.0-3.0 With Mechanical Valve: >2.5 Low-intensity Therapeutic Range: 1.5-2.0 Mod-intensity Therapeutic Range: 2.0-3.0 High-intensity Therapeutic Range: 2.5-3.5 HIgh-intensity Therapeutic Range: 3.0-4.0 Common Critical/Alarm Value: 5.0 Common Upper Limit Reported: 10.0 Effective 11/26/2018: Please note methodology and/or reference ranges have changed. Interpretation and review of laboratory results Abnormal [place] PT Coag (PPP) [Time] 15.7 s [place] Comment on above: Effective 11/26/18 Please note methodology and/or reference ranges have changed. Rapid Influenza A/B Antigens on 04-07-2019 Influenza A by PCR Negative [place] Comment on above: Effective 01/07/19 Please note methodology and/or reference ranges have changed. Influenza B by PCR Negative [place] Comment on above: Effective 01/07/19 Please note methodology and/or reference ranges have changed. TSH w/out Reflexon 9 TSH Qn 4.350 uIU/mL Critically high 0.440-3.86 [facility] Comment on above: Performed By: #### P T #### [facility] [address] [facility] [address] TSH without Reflexon 019 TSH Qn 4.350 m[IU]/L [place] Troponinon 04-07-2019 Troponin I.cardiac [Mass/Vol] ng/mL Normal 0.000-0.01 [facility] Comment on above: Result Comment: Meth odology by Troponin T. Performed By: #### P T #### [facility] [address] [facility] [address] Troponin I.cardiac [Mass/Vol] ng/mL 0 - 0.01 ng/mL [place] Comment on above: Methodology by Sunday Muir Urinalysis Reflex to Culture on 04-07-2019 Bilirubin Urine SMALL Abnormal Negative [place] Blood, Urine Negative Negative [place] Clarity, UA Clear Clear [place] Color, UA ORANGE Abnormal Straw/Yellow [place] Glucose, Ur 250 mg/dL Abnormal Negative [place] Interpretation and review of laboratory results Abnormal [place] Ketones Ql (U) TRACE Abnormal Negative mg/dL [place] Leukocyte esterase Test strip Ql (U) Negative Negative [place] Nitrite, Urine Negative Negative [place] pH, UA 5.0 [place] Protein (U) [Mass/Vol] 30 mg/dL Abnormal Negative [place] Specific [place], UA 1.025 [place] Urine Reflex to Culture YES [place] Urobilinogen, Urine 1.0 <2.0 E.U./dL [place] Urinalysis, reflex to cultur fabiola 04-07-2019 Bilirubin Ql (U) SMALL Abnormal Negative [facility] Comment on above: Performed By: #### B MP #### [facility] [address] [place] [address] Clarity (U) Clear Normal Clear [facility] Comment on above: Performed By: #### B MP #### [facility] [address] [place] [address] Color (U) ORANGE Abnormal Straw/Leake [facility] Comment on above: Performed By: #### B MP #### [facility] [address] [place] [address] Glucose Ql (U) 250 mg/dL Abnormal Negative [facility] Comment on above: Performed By: #### B MP #### [facility] [address] [place] [address] Hemoglobin Ql (U) Negative Normal Negative [facility] Comment on above: Performed By: #### B MP #### [facility] [address] [place] [address] Ketones Ql (U) TRACE Abnormal Negative [facility] Comment on above: Performed By: #### B MP #### [facility] [address] [place] [address] Leukocyte esterase Test strip Ql (U) Negative Normal Negative [facility] Comment on above: Performed By: #### B MP #### [facility] [address] [place] [address] Nitrite Ql (U) Negative Normal Negative [facility] Comment on above: Performed By: #### B MP #### [facility] [address] [place] [address] pH (U) 5.0 [pH] Normal 5.0-9.0 [facility] Comment on above: Performed By: #### B MP #### [facility] [address] [place] [address] Protein Ql (U) 30 mg/dL Abnormal Negative [facility] Comment on above: Performed By: #### B MP #### [facility] [address] [place] [address] Specific gravity (U) [Rel density] 1.025 Normal 1.005-1.03 [facility] Comment on above: Performed By: #### B MP #### [facility] [address] [place] [address] Urine Reflexed to Culture YES Normal [facility] Comment on above: Performed By: #### B MP #### [facility] [address] [place] [address] Urobilinogen Qn (U) 1.0 {Yared'U}/dL Normal < 2.0 [facility] Comment on above: Performed By: #### B MP #### [facility] [address] [place] [address] Urine Microscopicon 11-20-20 19 Bacteria LM.HPF (Urine sed) [#/Area] Negative Normal [facility] Comment on above: Performed By: #### B MP #### [facility] [address] [place] [address] RBC (U) [#/Vol] 0-2 Normal 0-5 [facility] Comment on above: Performed By: #### B MP #### [facility] [address] [place] [address] Urine Epithelial Cells Auto 0-2 Normal 0-5 [facility] Comment on above: Performed By: #### B MP #### [facility] [address] [place] [address] Urine Hyaline Casts Auto 5-10 Normal 0-5 [facility] Comment on above: Performed By: #### B MP #### [facility] [address] [place] [address] Urine WBC Auto 0-2 Normal 0-5 [facility] Comment on above: Performed By: #### B MP #### [facility] [address] [place] [address] XR CHEST PORTABLEon 04-07-20 19 XR CHEST PORTABLE Patient 8 : 1950 Age: 68 years Gender: Male Order Date: 04/07/2019 6:30 PM. Exam: XR CHEST PORTABLE Number of Views: 1 Indication: Fever Comparison: None. Findings: Cardiomediastinal silhouette is within normal limits. Lungs are clear without evidence of infiltrate/pneumonia, pneumothorax or pleural effusion IMPRESSION: Impression: No radiographic evidence of acute cardiopulmonary disease Interpreted by: Fabio Bautista MD Signed by: Fabio Bautista MD 04/08/19 Final result Normal [facility] proBNPon 04-07-2019 Natriuretic peptide B (Bld) [Mass/Vol] 597 pg/mL Normal [facility] Comment on above: Result Comment: NT-p ro BNP ACUTE Interpretive Guidelines: Age Cutoff for Heart Failure Less than 50 yrs 450 pg/mL 50-75 yrs 900 pg/mL Greater than 75 yrs 1800 pg/mL NT-pro BNP NON-ACUTE Interpretive Guidelines: Age Reference Range Less than 74 yrs 0-125 pg/mL Greater than 74 yrs 0-450 pg/mL Other possible causes of an elevated NT-proBNP include: cardiac ischemia, acute coronary syndrome, COPD, pneumonia, atrial fibrillation, pulmonary emboli, pulmonary hypertension, pericarditis Reference: Alondra Macias et al. NT-proBNP testing for diagnosis and short-term prognosis in acute destabilized HF: an international pooled analysis of 1256 patients. Heart Journal. 2006;27:330-337 Performed By: #### P T #### [facility] [address] [place] [address] FL LESS THAN 1 HOURon 2018 FL LESS THAN 1 HOUR Patient : 1950 Age: 68 years Gender: Male Order Date: 04/05/2019 11:51 AM. Exam: FL LESS THAN 1 HOUR Number of Views: 2 Indication: Needle placement in operating room Comparison: None Findings: Surgical enhancements project overlying the L5 vertebral body and the L3-L4 intervertebral disc space. One image is nondiagnostic but with a surgical instruments superficial to the posterior elements at L4-L5. IMPRESSION: Impression: 1. Fluoroscopic time 70.8 seconds. 2. Surgical instrumentation placement as described above. Interpreted by: Fabio Bautista MD Signed by: Fabio Bautista MD 04/06/19 Final result Normal [facility] POCT Glucoseon 04-05-2019 Glucose [Mass/Vol] 164 mg/dL Critically high 60-115 [facility] Comment on above: Performed By: #### P GLU #### [facility] [address] [facility] [address] POC [facility] Comment on above: Performed By: #### P GLU #### [facility] [address] [facility] [address] Glucose [Mass/Vol] 164 mg/dL High 60 - 115 mg/dl [place] Interpretation and review of laboratory results Abnormal [place] Glucose [Mass/Vol] 189 mg/dL Critically high 60-115 [facility] Comment on above: Performed By: #### P GLU #### [facility] [address] [facility] [address] POC Performed on [facility] Comment on above: Performed By: #### P GLU #### [facility] [address] [facility] [address] Glucose [Mass/Vol] 189 mg/dL High 60 - 115 mg/dl [place] Interpretation and review of laboratory results Abnormal [place] Performed on [facility] Prothrombin Timeon 9 INR Coag (PPP) [Relative time] 1.0 {INR} Normal [facility] Comment on above: Result Comment: Warf brian Therapy INR Therapeutic: 2.0-3.0 With Mechanical Valve: >2.5 Low-intensity Therapeutic Range: 1.5-2.0 Mod-intensity Therapeutic Range: 2.0-3.0 High-intensity Therapeutic Range: 2.5-3.5 HIgh-intensity Therapeutic Range: 3.0-4.0 Common Critical/Alarm Value: 5.0 Common Upper Limit Reported: 10.0 Effective 11/26/2018: Please note methodology and/or reference ranges have changed. Performed By: #### P T #### [facility] [address] [facility] [address] PT Coag (PPP) [Time] 13.4 s Normal 12.3-14.9 [facility] Comment on above: Result Comment: Effe ctive 11/26/18 Please note methodology and/or reference ranges have changed. Performed By: #### P T #### [facility] [address] [facility] [address] Protime-INRon 04-05-2019 INR Coag (PPP) [Relative time] 1.0 {INR} [facility] [place] Comment on above: Warfarin Therapy INR Therapeutic: 2.0-3.0 With Mechanical Valve: >2.5 Low-intensity Therapeutic Range: 1.5-2.0 Mod-intensity Therapeutic Range: 2.0-3.0 High-intensity Therapeutic Range: 2.5-3.5 HIgh-intensity Therapeutic Range: 3.0-4.0 Common Critical/Alarm Value: 5.0 Common Upper Limit Reported: 10.0 Effective 11/26/2018: Please note methodology and/or reference ranges have changed. PT Coag (PPP) [Time] 13.4 s [facility] [place] Comment on above: Effective 11/26/18 Please note methodology and/or reference ranges have changed. EKG 12 Leadon 04-01-2019 Atrial Rate 76 BPM [facility], [place] P [place] 47 degrees [facility] P-R Interval 178 ms [facility] [place] Q-T Interval 378 ms [facility] [place] QRS Duration 80 ms [facility] [place] QTc Calculation (Bazett) 425 ms [place] R [place] -2 degrees [place] T [place] 22 degrees [facility] [place] Ventricular Rate 76 BPM [place] Normal sinus rhythm Cannot rule out Inferior infarct , age undetermined Abnormal ECG No previous ECGs available Confirmed by Juan Vitale ([id number]) on 04/01/2019 7:17:49 AM [place], Chpo Incoming R esults From [place] - 04/01/2019 7:18 AM EST Normal sinus rhythm Cannot rule out Inferior infarct , age undetermined Abnormal ECG No previous ECGs available Confirmed by Juan Vitale () on 04/01/2019 7:17:49 AM [place] Basic Metabolic Panelon 03-19 Calcium [Mass/Vol] 9.0 mg/dL Normal 8.5-9.9 [facility] Comment on above: Performed By: #### B MP #### [facility] [address] [place] [address] Chloride [Moles/Vol] 98 mmol/L Normal 95-107 [facility] Comment on above: Performed By: #### B MP #### [facility] [address] [place] [address] CO2 [Moles/Vol] 25 mmol/L Normal 20-31 [facility] Comment on above: Performed By: #### B MP #### [facility] [address] [place] [address] Creatinine [Mass/Vol] 1.72 mg/dL Critically high 0.70-1.20 [facility] Comment on above: Performed By: #### B MP #### [facility] [address] [place] [address] GFR/1.73 sq M predicted among blacks MDRD (S/P/Bld) [Vol rate/Area] 48.0 mL/min/{1.73_m2} Low >60 [facility] Comment on above: Result Comment: >60 mL/min/1.73m2 EGFR, calc. for ages 18 and older using the MDRD formula (not corrected for weight), is valid for stable renal function. Performed By: #### B MP #### [facility] [address] [place] [address] GFR/1.73 sq M.predicted MDRD (S/P/Bld) [Vol rate/Area] 39.7 mL/min/{1.73_m2} Low >60 [facility] Comment on above: Result Comment: >60 mL/min/1.73m2 EGFR, calc. for ages 18 and older using the MDRD formula (not corrected for weight), is valid for stable renal function. Performed By: #### B MP #### [facility] [address] [place] [address] Glucose [Mass/Vol] 367 mg/dL Critically high 70-99 [facility] Comment on above: Performed By: #### B MP #### [facility] [address] [place] [address] Potassium [Moles/Vol] 4.5 mmol/L Normal 3.4-4.9 [facility] Comment on above: Performed By: #### B MP #### [facility] [address] [place] [address] Sodium [Moles/Vol] 136 mmol/L Normal 135-144 [facility] Comment on above: Performed By: #### B MP #### [facility] [address] [place] [address] Urea nitrogen [Mass/Vol] 23 mg/dL Normal 8-23 [facility] Comment on above: Performed By: #### B MP #### [facility] [address] [place] [address] Anion gap [Moles/Vol] 13 mmol/L Normal 9-15 [facility] Comment on above: Performed By: #### B MP #### [facility] [address] [place] [address] Anion gap [Moles/Vol] 13 mmol/L [facility] [place] Calcium [Mass/Vol] 9.0 mg/dL 8.5 - 9.9 mg/dL [place] Chloride [Moles/Vol] 98 mmol/L [place] CO2 [Moles/Vol] 25 mmol/L [place] Creatinine [Mass/Vol] 1.72 mg/dL High 0.7 - 1.2 mg/dL [place] GFR 48 Low >60 [place] Comment on above: >60 mL/min/1.73m2 EG FR, calc. for ages 18 and older using the MDRD formula (not corrected for weight), is valid for stable renal function. GFR Non- 39.7 Low >60 [place] Comment on above: >60 mL/min/1.73m2 EG FR, calc. for ages 18 and older using the MDRD formula (not corrected for weight), is valid for stable renal function. Glucose [Mass/Vol] 367 mg/dL High 70 - 99 mg/dL [place] Interpretation and review of laboratory results Abnormal [place] Potassium [Moles/Vol] 4.5 mmol/L [place] Sodium [Moles/Vol] 136 mmol/L [place] Urea nitrogen [Mass/Vol] 23 mg/dL 8 - 23 mg/dL [place] CBCon 03-30-2019 Erythrocyte distribution width (RBC) [Ratio] 12.7 % 11.5 - 14.5 % [place] Hematocrit (Bld) [Volume fraction] 42.4 % 42 - 52 % [place] Hemoglobin (Bld) [Mass/Vol] 14.3 g/dL 14 - 18 g/dL [place] Interpretation and review of laboratory results Abnormal [place] MCH (RBC) [Entitic mass] 30.8 pg 27 - 31.3 pg [place] MCHC (RBC) [Mass/Vol] 33.7 % 33 - 37 % [place] MCV (RBC) [Entitic vol] 91.3 fL 80 - 100 fL [place] Platelets (Bld) [#/Vol] 213 10*3/uL 130 - 400 K/uL [place] RBC (Bld) [#/Vol] 4.65 10*6/uL Low [place] WBC (Bld) [#/Vol] 8.2 10*3/uL 4.8 - 10.8 K/uL [place] CBC With Platelet No Differe ntialon 03-30-2019 Erythrocyte distribution width (RBC) [Ratio] 12.7 % Normal 11.5-14.5 [facility] Comment on above: Performed By: #### C BCND #### [facility] [address] [place] [address] Hematocrit (Bld) [Volume fraction] 42.4 % Normal 42.0-52.0 [facility] Comment on above: Performed By: #### C BCND #### [facility] [address] [place] [address] Hemoglobin (Bld) [Mass/Vol] 14.3 g/dL Normal 14.0-18.0 [facility] Comment on above: Performed By: #### C BCND #### [facility] [address] [place] [address] MCH (RBC) [Entitic mass] 30.8 pg Normal 27.0-31.3 [facility] Comment on above: Performed By: #### C BCND #### [facility] [address] [place] [address] MCHC (RBC) [Mass/Vol] 33.7 % Normal 33.0-37.0 [facility] Comment on above: Performed By: #### C BCND #### [facility] [address] [place] [address] MCV (RBC) [Entitic vol] 91.3 fL Normal 80.0-100.0 [facility] Comment on above: Performed By: #### C BCND #### [facility] [address] [place] [address] Platelets (Bld) [#/Vol] 213 10*3/uL Normal 130-400 [facility] Comment on above: Performed By: #### C BCND #### [facility] [address] [place] [address] RBC (Bld) [#/Vol] 4.65 10*6/uL Low 4.70-6.10 [facility] Comment on above: Performed By: #### C BCND #### [facility] [address] [place] [address] WBC (Bld) [#/Vol] 8.2 10*3/uL Normal 4.8-10.8 [facility] Comment on above: Performed By: #### C BCND #### [facility] [address] [place] [address] Hemoglobin A1Con 03-30-2019 HbA1c (Bld) [Mass fraction] 9.8 % High 4.8 - 5.9 % [place] Interpretation and review of laboratory results Abnormal [place] Hemoglobin A1con 03-30-2019 HbA1c (Bld) [Mass fraction] 9.8 % Critically high 4.8-5.9 [facility] Comment on above: Performed By: #### A 1C #### [facility] [address] [facility] [address] Prothrombin Timeon 9 INR Coag (PPP) [Relative time] 1.9 {INR} Normal [facility] Comment on above: Result Comment: Warf brian Therapy INR Therapeutic: 2.0-3.0 With Mechanical Valve: >2.5 Low-intensity Therapeutic Range: 1.5-2.0 Mod-intensity Therapeutic Range: 2.0-3.0 High-intensity Therapeutic Range: 2.5-3.5 HIgh-intensity Therapeutic Range: 3.0-4.0 Common Critical/Alarm Value: 5.0 Common Upper Limit Reported: 10.0 Effective 11/26/2018: Please note methodology and/or reference ranges have changed. Performed By: #### P T #### [facility] [address] [facility] [address] PT Coag (PPP) [Time] 22.6 s Critically high 12.3-14.9 [facility] Comment on above: Result Comment: Effe ctive 11/26/18 Please note methodology and/or reference ranges have changed. Performed By: #### P T #### [facility] [address] [place] [address] Protime-INRon 03-30-2019 INR Coag (PPP) [Relative time] 1.9 {INR} [place] Comment on above: Warfarin Therapy INR Therapeutic: 2.0-3.0 With Mechanical Valve: >2.5 Low-intensity Therapeutic Range: 1.5-2.0 Mod-intensity Therapeutic Range: 2.0-3.0 High-intensity Therapeutic Range: 2.5-3.5 HIgh-intensity Therapeutic Range: 3.0-4.0 Common Critical/Alarm Value: 5.0 Common Upper Limit Reported: 10.0 Effective 11/26/2018: Please note methodology and/or reference ranges have changed. Interpretation and review of laboratory results Abnormal [place] PT Coag (PPP) [Time] 22.6 s High [place] Comment on above: Effective 11/26/18 Please note methodology and/or reference ranges have changed. TYPE AND SCREENon 03-30-2019 ABO/Rh Positive [place] Type and Screen Capture 3 sc rn cellon 03-30-2019 Type and Screen Capture 3 scrn cell PATIENT: SEVERO Shrestha LOC: [facility]# : [id number] : 1950 SEX: M ORDERED BY: HAYDER Orourke ORDERED : 03/30/2019 12:58 COLLECTED: 03/30/2019 13:32 ORDER : [id number] RECEIVED : 03/30/2019 13:32 TEST NAME RESULT UNITS RANGES ABN FL ST ABORH Capture A POS F Antibody 3 Cell Scrn Captu NEG F Normal [facility] Comment on above: Performed By: #### T S3C #### [facility] [address] [place] [address] CBC AND DIFFERENTIALon 04-08 % AUTOMATED IMMATURE GRAN Canceled Normal [facility] Comment on above: Order Comment: TEST CBC AND DIFFERENTIAL WAS CANCELLED, 04/08/2018 04:30 ?Cancel Reason:Patient Discharged. Result Comment: Perc ent differential counts (%) should be interpreted in the context of the absolute cell counts (cells/L). Performed By: #### C BC ####[id number] [place] [address] % NEUTROPHIL Canceled Normal [facility] Comment on above: Order Comment: TEST CBC AND DIFFERENTIAL WAS CANCELLED, 04/08/2018 04:30 ?Cancel Reason:Patient Discharged. Performed By: #### C BC ####[id number] [place] [address] Basophils/100 WBC Auto (Bld) Canceled Normal [facility] Comment on above: Order Comment: TEST CBC AND DIFFERENTIAL WAS CANCELLED, 04/08/2018 04:30 ?Cancel Reason:Patient Discharged. Performed By: #### C BC ####[id number] [place] [address] DIFFERENTIAL Canceled Normal [facility] Comment on above: Order Comment: TEST CBC AND DIFFERENTIAL WAS CANCELLED, 04/08/2018 04:30 ?Cancel Reason:Patient Discharged. Performed By: #### C BC ####[id number] [place] [address] Eosinophils Auto #/vol (Bld) Canceled Normal [facility] Comment on above: Order Comment: TEST CBC AND DIFFERENTIAL WAS CANCELLED, 04/08/2018 04:30 ?Cancel Reason:Patient Discharged. Performed By: #### C BC ####[id number] [place] [address] Eosinophils/100 WBC Auto (Bld) Canceled Normal [facility] Comment on above: Order Comment: TEST CBC AND DIFFERENTIAL WAS CANCELLED, 04/08/2018 04:30 ?Cancel Reason:Patient Discharged. Performed By: #### C BC ####[id number] [place] [address] Erythrocyte distribution width Auto Ratio (RBC) Canceled Normal [facility] Comment on above: Order Comment: TEST CBC AND DIFFERENTIAL WAS CANCELLED, 04/08/2018 04:30 ?Cancel Reason:Patient Discharged. Performed By: #### C BC ####[id number] [place] [address] Hematocrit Auto Volume Fraction (Bld) Canceled Normal [facility] Comment on above: Order Comment: TEST CBC AND DIFFERENTIAL WAS CANCELLED, 04/08/2018 04:30 ?Cancel Reason:Patient Discharged. Performed By: #### C BC ####[id number] [place] [address] Hemoglobin mass conc (Bld) Canceled Normal [facility] Comment on above: Order Comment: TEST CBC AND DIFFERENTIAL WAS CANCELLED, 04/08/2018 04:30 ?Cancel Reason:Patient Discharged. Performed By: #### C BC ####[id number] [place] [address] Lymphocytes Auto #/vol (Bld) Canceled Normal [facility] Comment on above: Order Comment: TEST CBC AND DIFFERENTIAL WAS CANCELLED, 04/08/2018 04:30 ?Cancel Reason:Patient Discharged. Performed By: #### C BC ####[id number] [place] [address] Lymphocytes/100 WBC Auto (Bld) Canceled Normal [facility] Comment on above: Order Comment: TEST CBC AND DIFFERENTIAL WAS CANCELLED, 04/08/2018 04:30 ?Cancel Reason:Patient Discharged. Performed By: #### C BC ####[id number] [place] [address] MCHC Auto mass conc (RBC) Canceled Normal [facility] Comment on above: Order Comment: TEST CBC AND DIFFERENTIAL WAS CANCELLED, 04/08/2018 04:30 ?Cancel Reason:Patient Discharged. Performed By: #### C BC ####[id number] [place] [address] MCV Auto Entitic volume (RBC) Canceled Normal [facility] Comment on above: Order Comment: TEST CBC AND DIFFERENTIAL WAS CANCELLED, 04/08/2018 04:30 ?Cancel Reason:Patient Discharged. Performed By: #### C BC ####[id number] [place] [address] Monocytes Auto #/vol (Bld) Canceled Normal [facility] Comment on above: Order Comment: TEST CBC AND DIFFERENTIAL WAS CANCELLED, 04/08/2018 04:30 ?Cancel Reason:Patient Discharged. Performed By: #### C BC ####[id number] [place] [address] Neutrophils Auto #/vol (Bld) Canceled Normal [facility] Comment on above: Order Comment: TEST CBC AND DIFFERENTIAL WAS CANCELLED, 04/08/2018 04:30 ?Cancel Reason:Patient Discharged. Performed By: #### C BC ####[id number] [place] [address] Nucleated RBC/100 WBC Ratio (Bld) Canceled Normal [facility] Comment on above: Order Comment: TEST CBC AND DIFFERENTIAL WAS CANCELLED, 04/08/2018 04:30 ?Cancel Reason:Patient Discharged. Performed By: #### C BC ####[id number] [place] [address] Platelets Auto #/vol (Bld) Canceled Normal [facility] Comment on above: Order Comment: TEST CBC AND DIFFERENTIAL WAS CANCELLED, 04/08/2018 04:30 ?Cancel Reason:Patient Discharged. Performed By: #### C BC ####[id number] [place] [address] RBC Auto #/vol (Bld) Canceled Normal [facility] Comment on above: Order Comment: TEST CBC AND DIFFERENTIAL WAS CANCELLED, 04/08/2018 04:30 ?Cancel Reason:Patient Discharged. Performed By: #### C BC ####[id number] [place] [address] WBC Auto #/vol (Bld) Canceled Normal [facility] Comment on above: Order Comment: TEST CBC AND DIFFERENTIAL WAS CANCELLED, 04/08/2018 04:30 ?Cancel Reason:Patient Discharged. Performed By: #### C BC ####[id number] [place] [address] MAGNESIUMon 04-08-2018 Magnesium mass conc Canceled Normal [facility] Comment on above: Order Comment: TEST MAGNESIUM WAS CANCELLED, 04/08/2018 04:30 ?Cancel Reason: PatientDischarged. Performed By: #### C BC ####[id number] [place] [address] PT/INRon 04-08-2018 INR Coag RelTime (PPP) Canceled Normal [facility] Comment on above: Order Comment: TEST PT/INR WAS CANCELLED, 04/08/2018 04:30 ?Cancel Reason: PatientDischarged. Performed By: #### C BC ####[id number] [place] [address] Prothrombin time (PT) Coag time (PPP) Canceled Normal [facility] Comment on above: Order Comment: TEST PT/INR WAS CANCELLED, 04/08/2018 04:30 ?Cancel Reason: PatientDischarged. Result Comment: Note new reference range as of 03/10/2018. Performed By: #### C BC ####[id number] [place] [address] RENAL FUNCTION PANELon 04-08 Albumin mass conc Canceled Normal [facility] Comment on above: Order Comment: TEST RENAL FUNCTION PANEL WAS CANCELLED, 04/08/2018 04:30 ?Cancel Reason:Patient Discharged. Performed By: #### C BC ####[id number] [place] [address] Anion gap 3 molar conc Canceled Normal [facility] Comment on above: Order Comment: TEST RENAL FUNCTION PANEL WAS CANCELLED, 04/08/2018 04:30 ?Cancel Reason:Patient Discharged. Performed By: #### C BC ####[id number] [place] [address] Calcium mass conc Canceled Normal [facility] Comment on above: Order Comment: TEST RENAL FUNCTION PANEL WAS CANCELLED, 04/08/2018 04:30 ?Cancel Reason:Patient Discharged. Performed By: #### C BC ####[id number] [place] [address] Chloride molar conc Canceled Normal [facility] Comment on above: Order Comment: TEST RENAL FUNCTION PANEL WAS CANCELLED, 04/08/2018 04:30 ?Cancel Reason:Patient Discharged. Performed By: #### C BC ####[id number] [place] [address] Creatinine mass conc Canceled Normal [facility] Comment on above: Order Comment: TEST RENAL FUNCTION PANEL WAS CANCELLED, 04/08/2018 04:30 ?Cancel Reason:Patient Discharged. Performed By: #### C BC ####[id number] [place] [address] GFR- AM. Canceled Normal [facility] Comment on above: Order Comment: TEST RENAL FUNCTION PANEL WAS CANCELLED, 04/08/2018 04:30 ?Cancel Reason:Patient Discharged. Result Comment: CALC ULATIONS OF ESTIMATED GFR ARE PERFORMED USING THE MDRD STUDY EQUATION FOR THE IDMS-TRACEABLE CREATININE METHODS. CLIN CHEM 2007;53:766-72 Performed By: #### C BC ####[id number] [place] [address] GFR-NON AM. Canceled Normal [facility] Comment on above: Order Comment: TEST RENAL FUNCTION PANEL WAS CANCELLED, 04/08/2018 04:30 ?Cancel Reason:Patient Discharged. Performed By: #### C BC ####[id number] [place] [address] Glucose mass conc Canceled Normal [facility] Comment on above: Order Comment: TEST RENAL FUNCTION PANEL WAS CANCELLED, 04/08/2018 04:30 ?Cancel Reason:Patient Discharged. Performed By: #### C BC ####[id number] [place] [address] HCO3 molar conc (Bld) Canceled Normal [facility] Comment on above: Order Comment: TEST RENAL FUNCTION PANEL WAS CANCELLED, 04/08/2018 04:30 ?Cancel Reason:Patient Discharged. Performed By: #### C BC ####[id number] [place] [address] Phosphate mass conc Canceled Normal [facility] Comment on above: Order Comment: TEST RENAL FUNCTION PANEL WAS CANCELLED, 04/08/2018 04:30 ?Cancel Reason:Patient Discharged. Result Comment: The performance characteristics of phosphorus testing in heparinized plasma have been validated by the individual laboratory site where testing is performed. Testing on heparinized plasma is not approved by the FDA; however, such approval is not necessary. Performed By: #### C BC ####[id number] [place] [address] Potassium molar conc Canceled Normal [facility] Comment on above: Order Comment: TEST RENAL FUNCTION PANEL WAS CANCELLED, 04/08/2018 04:30 ?Cancel Reason:Patient Discharged. Performed By: #### C BC ####[id number] [place] [address] Sodium molar conc Canceled Normal [facility] Comment on above: Order Comment: TEST RENAL FUNCTION PANEL WAS CANCELLED, 04/08/2018 04:30 ?Cancel Reason:Patient Discharged. Performed By: #### C BC ####[id number] [place] [address] Urea nitrogen mass conc Canceled Normal [facility] Comment on above: Order Comment: TEST RENAL FUNCTION PANEL WAS CANCELLED, 04/08/2018 04:30 ?Cancel Reason:Patient Discharged. Performed By: #### C BC ####[id number] [place] [address] CBCon 04-07-2018 Erythrocyte distribution width Auto Ratio (RBC) 13.1 % Normal 11.5 - 14.5 [facility] Comment on above: Performed By: #### C BC ####[id number] [place] [address] Hematocrit Auto Volume Fraction (Bld) 31.1 % Low 41.0 - 52.0 [facility] Comment on above: Performed By: #### C BC ####[id number] [place] [address] Hemoglobin mass conc (Bld) 10.3 g/dL Low 13.5 - 17.5 [facility] Comment on above: Performed By: #### C BC ####[id number] [place] [address] MCHC Auto mass conc (RBC) 33.1 g/dL Normal 32.0 - 36.0 [facility] Comment on above: Performed By: #### C BC ####[id number] [place] [address] MCV Auto Entitic volume (RBC) 93 fL Normal 80 - 100 [facility] Comment on above: Performed By: #### C BC ####[id number] [place] [address] Nucleated RBC/100 WBC Ratio (Bld) 0.0 /100 WBC Normal 0.0-0.0 [facility] Comment on above: Performed By: #### C BC ####[id number] [place] [address] Platelets Auto #/vol (Bld) 330 10*3/uL Normal 150 - 450 [facility] Comment on above: Performed By: #### C BC ####[id number] [place] [address] RBC Auto #/vol (Bld) 3.34 x10E12/L Low 4.50 - 5.90 [facility] Comment on above: Performed By: #### C BC ####[id number] [place] [address] WBC Auto #/vol (Bld) 11.8 10*3/uL High 4.4 - 11.3 [facility] Comment on above: Performed By: #### C BC ####[id number] [place] [address] Daily Progress Note-Cardiac Surgeryon 04-07-2018 Protein mass conc Service: Cardiac Iris dane Subjective Data:DON ELKINS is a 67 year old Male who is Hospital Day # 21 and POD #7 for CABGx 3;-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 Overnight Events: Patient had an uneventful night.Additional Information:No complaints today, patient eager to go home, feeling well. Objective Data: Objective Information: T [id number]/6195% Date/Time04/07 11: 11: 11: 11: 11:00Range(36C - 36.5C ) (67 - 84 ) (16 - 20 ) (105 - 136 )/ (61 - 84 ) (93% -98% ) Pain with Activity reported at 04/07 11:00: 0Pain at Rest reported at 04/07 11:00: 0 Rlqtczp26/20 2:51: Weight in kg (Weight (kg)) 107. 2:51: Weight in lbs ((lbs)) 237 ---- Intake and Output -----Mn/Dy/Year TimeIntakeOutputNetNov 2017 6:00 [id number] 2017 10:00 [id number] 2017 2:00 [id number] The Intake and Output Totals for the last 24 hours are:[id number] Physical Exam: Constitutional: lying in bed; NAD, cooperativeEyes: sclera clearENMT: mucous membranes moistHead/Neck: neck suppleRespiratory/Thorax: nonlabored; fair inspir effort and cough; occas loosesounding cough; mildly diminished basessternum stableCardiovascular: RRR; TELE - SR 60s-70sno wiresGastrointestinal: obese; soft; NT/ND; BS+; BM 04/04Genitourinary: voiding per urinal; no dysuriaMusculoskeletal: MAEExtremities: no edema; well perfusedNeurological: awake; A&Ox4; no focal defPsychological: Appropriate mood and behaviorSkin: warm and dryINCISIONS: midsternal, leg SUBMARINE DIVER, well approx, w/o s/s infection Medication: Medications: Continuous Medications --No continuous medications are active Scheduled Medications -- 1. Aspirin Enteric Coated: 81 mg Oral Daily2. Atorvastatin: 40 mg Oral Daily3. Citalopram (CELEXA): 20 mg Oral Daily4. Docusate: 100 mg Oral 2 Times a Day5. Fludrocortisone: 0.05 mg Oral 6. Furosemide: 40 mg Oral Daily7. Hydrocortisone: 10 mg Oral 8. Hydrocortisone: 5 mg Oral 9. Insulin Glargine (Lantus) Injectable: 20 unit(s) SubCutaneous At Bedtime 10. Insulin Lispro (HumaLOG) Injectable: 6 unit(s) SubCutaneous 3 Times aDay Before Meals11. Insulin Lispro Mild Corrective Scale: unit(s) SubCutaneous 3 Times a DayBefore Meals12. Iron Polysaccharide Complex: 150 mg Oral Daily13. Levothyroxine: 150 microgram(s) Oral Daily14. Lidocaine 5% TransDermal: 1 patch TransDermal Every 24 Hours15. Lisinopril: 5 mg Oral Daily16. Metoprolol Tartrate: 75 mg Oral Every 12 Hours17. Multivitamin with Minerals: 1 tablet(s) Oral Daily18. Pantoprazole: 40 mg Oral Daily19. Polyethylene Glycol: 17 gram(s) Oral 3 Times a Day20. rOPINIRole (REQUIP XL) Extended Release: 8 mg Oral Daily21. Warfarin: 7.5 mg Oral Daily PRN Medications -- 1. Bisacodyl Rectal: 10 mg Rectal Daily2. Dextrose 50% in Water Injectable: 25 gram(s) IntraVenous Push Every 47Aoogzgu6. Glucagon Injectable: 1 mg IntraMuscular Every 15 Minutes4. Ondansetron Injectable: 4 mg IntraVenous Push Every 6 Hours5. oxyCODONE Immediate Release: 5 mg Oral Every 4 Hours Recent Lab Results: Results: I have reviewed these laboratory results: Glucose_POCT 07-Apr-2018 07:15:00 ResultValueGlucose-POCT 123 H Complete Blood Count 07-Apr-2018 04:44:00 ResultValueWhite Blood Cell Count 11.8 HNucleated Erythrocyte Count 0.0Red Blood Cell Count 3.34 LHGB 10.3 LHCT 31.1 LMCV 93MCHC 33.1PLT 330RDW-CV 13.1 Renal Function Panel 07-Apr-2018 04:44:00 ResultValueGlucose, Serum 121 HNA 137K 4.2CL 100Bicarbonate, Serum 30Anion Gap, Serum 11BUN 26 HCREAT 1.38 HGFR-Non 51 AGFR- 62Calcium, Serum 8.9Phosphorus, Serum 4.7ALB 3.3 L PT + INR, Plasma 07-Apr-2018 04:44:00 ResultValueProthrombin Time, Plasma 22.4 HInternational Normalized Ratio, Plasma 2.0 H Magnesium, Serum 07-Apr-2018 04:44:00 ResultValueMagnesium, Serum 1.85 Heparin assay, UFH 07-Apr-2018 04:44:00 ResultValueHeparin assay, UFH 0.6 Radiology Results: Results: Conclusion:Electrocardiogram 12 Lead [Apr 06 2018 11:23AM] Conclusion:Electrocardiogram 12 Lead [Apr 06 2018 11:22AM] Assessment and Plan:Assessment:67 yo WM with no prior history of CAD, who has a past medical history of HTN,HLD, T2DM, Brigida's disease, hypothyroidism, COPD, AKASH on CPAP, prostate Spring/p prostatectomy in 2011, and psoriasis [facility] for CABG eval. [place] and dyspnea. He as found to havebilat PEs, was started on Heparin gtt, and transferred to [facility]. He wasfound to have a troponin leak at 2.25. Cardiology was consulted and the patientwas diagnosed with ACS, NSTEMI. He underwent a TTE and cath. He had normal EF,mild AI, and triple vessel CAD so was transferred to [facility] for CABG eval.Pulm consulted for PE workup. 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 03/23/2018 OPERATION/PROCEDURE: by Severiano Gonzalezerior vena cava filter. 03/31/18 OPERATION/PROCEDURE: by Dr. Hernandez x 3; REIS to LAD, SVG to PDA, SVG to DiagEndoscopic harvest of right saphenous vein CTICU course: HTN, endo following for DM and [facility]'s disease, insulin gtt;one CT with air leak Transferred to T3 04/02 IMPRESSION AND PLAN: POD #7 s/p CABGx3 on 03/31- increase activity/ ambulation; PT/OT- encourage IS, C/DB; respiratory therapy; off O2- cardiac rehab referral- continue cardiac meds: asa, statin, BB, lauren- pain and anticonstipation meds- no air leak so remaining 2 CTs out 04/03- 2v CXR 04/04- epicardial wires CUT 04/05- tele until discharge and optimize lytes- optimize nutrition Rhythm- SR 60s-70s- noted 8 beat NSVT 04/02 on tele review- 04/05 changed metoprolol to 75 mg PO BID from 50 mg PO q8 Acute postop blood loss anemia- hct 31.1, [31.7, 29.5, 26.6, 28.5]- MV, 1 month iron- daily CBC Postop Volume/Electrolyte status - preop wt 106.8; EF normal- wt 108 [109.8, 109.9, 109.8]- 04/02 received 40mg oral Lasix- 04/03 adding 20mg IV Lasix daily for am- 04/04 increased 20mg IV Lasix to BID- 04/07 changed Lasix to PO for discharge- adjust diuresis as needed for postop cardiac surgery hypervolemia- replete electrolytes for hypokalemia/hypomagnesemia/hyp ophosphatemia asneeded - 04/03 replaced K, 04/04 replaced K and Mg; 04/05 replaced K and Mg,04/07 replaced Mg Renal - admission Cr 1.42, baseline 1.4-1.6; peak postop Cr 1.68- Cr 1.38, [1.28, 1.37, 1.24, 1.3, 1.32, 1.37]- avoid hypotension and nephrotoxics- tolerating diuresis and lauren- daily renal panel Endo - h/o Brigida's disease, DM, hypothyroidism- Appreciate endo recs, now have signed off as of 04/04- hydrocortisone taper ordered as per Endo recs for [facility]'s- starting fludrocortisone 4 days per week on 04/06 as per Endo recs forAddison's- adjusted DM regimen as per Endo recs- continue levothyroxine- DM diet, accuchecks, SSI- 04/07 clinical systems educator met with patient to go over discharge instructionsand care Unprovoked bilat PE's preop- Pulm consult evaluated pt preop: surgery delayed as per pulm recs for heparinanticoagulation of appropriate interval; IVC filter placed 03/23- As per Dr Yu:--- Place IVC filter electively before surgery as heparin will need to beinterrupted - can retrieve fliter in 4-6 weeks if patient can take continuousanticoagulation.--- Consideration of anticoagulation beyond 6 months duration--- Would restart unfractionated heparin after cardiac surgery and transitionto DOAC if tolerated and no substantial bleeding risk from surgery. If bleedingremains a concern, reversible VKA etc may be a better choice.- 04/03 heparin gtt started once CTs removed as per Dr Gaston; will heparin bridgeto coumadin- 04/07 d/c heparin, INR 2.0- plan f/u with Vascular surgery Dr Stapleton to arrange filter removal h/o HTN; home med: lisinopril 20 mg PO daily- SBP 101-136- 04/05 d/c hydralazine and started lisinopril 5 mg PO daily h/o HLD- continue statin Neuro/Psych - h/o depression, RLS- continue home citalopram- continue home ropinirole Proph- DVT prophylaxis - subcu heparin stopped 04/03 when added heparin gtt- SCD's/Darlyn luae Disp- PT evaluation - home PT- anticipate discharge today, as INR is therapeutic- plan [facility] coumadin clinic under wood heel cementer Dr Pisano- plan homebirth midwife and PT Plan of care discussed with Dr. Gaston Signature/Cosignature/Attestat ion:Provider/Team Contact Info-Pager Numbercardiac surgery [phone] Electronic Signatures:Alexandra Milligan (PAC) (Signed 07-Apr-2018 14:05)Authored: Service, Subjective Data, Objective Data, Assessment and Plan,Signature/Cosignature/Att estation Last Updated: 07-Apr-2018 14:05 by Alexandra Milligan (PAC) Normal [facility] GLUCOSE-POCTon 04-07-2018 Glucose mass conc 123 mg/dL High 74 - 99 [facility] Comment on above: Performed By: #### C BC ####[id number] [id number] Glucose mass conc 232 mg/dL High 74 - 99 [facility] Comment on above: Performed By: #### C BC ####[id number] [id number] HEPARIN ASSAY,UFHon 04-07-20 18 HEPARIN ASSAY,UFH Canceled Normal [facility] Comment on above: Order Comment: TEST HEPARIN ASSAY,UFH WAS CANCELLED, 04/06/2018 04:14 ?Cancel Reason:Discontinued. Result Comment: The therapeutic reference range for UFH may be either 0.3-0.6 IU/mL or 0.3-0.7 IU/mL based on the clinical setting for anticoagulant therapy and the associated nomogram used. For heparin dosing guidelines based on clinical scenario and Heparin Assay results, please refer to local Pharmacy and the [facility] Guidelines for Anticoagulation therapy available on the [facility] intranet at:[email or web address] Performed By: #### C BC ####[id number] [place] [address] Order Comment: TEST HEPARIN ASSAY,UFH WAS CANCELLED, 04/07/2018 04:44 ?Cancel Reason:Discontinued. HEPARIN ASSAY,UFH 0.6 IU/mL Normal [facility] Comment on above: Result Comment: The therapeutic reference range for UFH may be either 0.3-0.6 IU/mL or 0.3-0.7 IU/mL based on the clinical setting for anticoagulant therapy and the associated nomogram used. For heparin dosing guidelines based on clinical scenario and Heparin Assay results, please refer to local Pharmacy and the [facility] Guidelines for Anticoagulation therapy available on the [facility] intranet at:[email or web address] Performed By: #### C BC ####[id number] [place] [address] MAGNESIUMon 04-07-2018 Magnesium mass conc 1.85 mg/dL Normal 1.60 - 2.40 [facility] Comment on above: Performed By: #### C BC ####[id number] [place] [address] PT/INRon 04-07-2018 INR Coag RelTime (PPP) 2.0 {INR} High 0.9 - 1.1 [facility] Comment on above: Performed By: #### C BC ####[id number] [place] [address] Prothrombin time (PT) Coag time (PPP) 22.4 s High 9.7 - 12.7 [facility] Comment on above: Result Comment: Note new reference range as of 03/10/2018. Performed By: #### C BC ####[id number] [place] [address] RENAL FUNCTION PANELon 04-07 Albumin mass conc 3.3 g/dL Low 3.4 - 5.0 [facility] Comment on above: Performed By: #### C BC ####[id number] [place] [address] Anion gap 3 molar conc 11 mmol/L Normal 10 - 20 [facility] Comment on above: Performed By: #### C BC ####[id number] [place] [address] Calcium mass conc 8.9 mg/dL Normal 8.6 - 10.6 [facility] Comment on above: Performed By: #### C BC ####[id number] [place] [address] Chloride molar conc 100 mmol/L Normal 98 - 107 [facility] Comment on above: Performed By: #### C BC ####[id number] [place] [address] Creatinine mass conc 1.38 mg/dL High 0.50 - 1.30 [facility] Comment on above: Performed By: #### C BC ####[id number] [place] [address] GFR- AM. 62 mL/min/1.73m2 Normal >60 [facility] Comment on above: Result Comment: CALC ULATIONS OF ESTIMATED GFR ARE PERFORMED USING THE MDRD STUDY EQUATION FOR THE IDMS-TRACEABLE CREATININE METHODS. CLIN CHEM 2007;53:766-72 Performed By: #### C BC ####[id number] [place] [address] GFR-NON AM. 51 mL/min/1.73m2 Abnormal >60 [facility] Comment on above: Performed By: #### C BC ####[id number] [place] [address] Glucose mass conc 121 mg/dL High 74 - 99 [facility] Comment on above: Performed By: #### C BC ####[id number] [place] [address] HCO3 molar conc (Bld) 30 mmol/L Normal 21 - 32 [facility] Comment on above: Performed By: #### C BC ####[id number] [place] [address] Phosphate mass conc 4.7 mg/dL Normal 2.5 - 4.9 [facility] Comment on above: Result Comment: The performance characteristics of phosphorus testing in heparinized plasma have been validated by the individual laboratory site where testing is performed. Testing on heparinized plasma is not approved by the FDA; however, such approval is not necessary. Performed By: #### C BC ####[id number] [place] [address] Potassium molar conc 4.2 mmol/L Normal 3.5 - 5.3 [facility] Comment on above: Performed By: #### C BC ####[id number] [place] [address] Sodium molar conc 137 mmol/L Normal 136 - 145 [facility] Comment on above: Performed By: #### C BC ####[id number] [place] [address] Urea nitrogen mass conc 26 mg/dL High 6 - 23 [facility] Comment on above: Performed By: #### C BC ####[id number] [place] [address] CBCon 04-06-2018 Erythrocyte distribution width Auto Ratio (RBC) 13.0 % Normal 11.5 - 14.5 [facility] Comment on above: Performed By: #### C BC ####[id number] [place] [address] Hematocrit Auto Volume Fraction (Bld) 31.7 % Low 41.0 - 52.0 [facility] Comment on above: Performed By: #### C BC ####[id number] [place] [address] Hemoglobin mass conc (Bld) 10.6 g/dL Low 13.5 - 17.5 [facility] Comment on above: Performed By: #### C BC ####[id number] [place] [address] MCHC Auto mass conc (RBC) 33.4 g/dL Normal 32.0 - 36.0 [facility] Comment on above: Performed By: #### C BC ####[id number] [place] [address] MCV Auto Entitic volume (RBC) 92 fL Normal 80 - 100 [facility] Comment on above: Performed By: #### C BC ####[id number] [place] [address] Nucleated RBC/100 WBC Ratio (Bld) 0.0 /100 WBC Normal 0.0-0.0 [facility] Comment on above: Performed By: #### C BC ####[id number] [place] [address] Platelets Auto #/vol (Bld) 304 10*3/uL Normal 150 - 450 [facility] Comment on above: Performed By: #### C BC ####[id number] [place] [address] RBC Auto #/vol (Bld) 3.44 x10E12/L Low 4.50 - 5.90 [facility] Comment on above: Performed By: #### C BC ####[id number] [place] [address] WBC Auto #/vol (Bld) 12.3 10*3/uL High 4.4 - 11.3 [facility] Comment on above: Performed By: #### C BC ####[id number] [place] [address] COAGULATION SCREENon 018 aPTT Coag time (Bld) 105 s Critically high 28 - 38 [facility] Comment on above: Order Comment: APTT CALLED RB TO ASHWIN JIANG , 04/06/2018 05:23 Result Comment: Note new reference range as of 03/10/2018. THE APTT IS NO LONGER USED FOR MONITORING UNFRACTIONATED HEPARIN THERAPY. FOR MONITORING HEPARIN THERAPY, USE THE HEPARIN ASSAY..APTT CALLED RB TO ASHWIN JIANG , 04/06/2018 05:23 Performed By: #### C BC ####[id number] [place] [address] INR Coag RelTime (PPP) 1.5 {INR} High 0.9 - 1.1 [facility] Comment on above: Order Comment: APTT CALLED RB TO ASHWIN JIANG , 04/06/2018 05:23 Performed By: #### C BC ####[id number] [place] [address] Prothrombin time (PT) Coag time (PPP) 16.5 s High 9.7 - 12.7 [facility] Comment on above: Order Comment: APTT CALLED RB TO ASHWIN JIANG , 04/06/2018 05:23 Result Comment: Note new reference range as of 03/10/2018. Performed By: #### C BC ####[id number] [place] [address] Daily Progress Note-Cardiac Surgeryon 04-06-2018 Protein mass conc Service: Cardiac Iris dane Subjective Data:DON ELKINS is a 67 year old Male who is Hospital Day # 20 and POD #6 for CABGx 3;-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 Overnight Events: Patient had an uneventful night. Objective Data: Objective Information: ---- Intake and Output -----Mn/Dy/Year TimeIntakeOutputNetNov 2017 6:00 [id number] 2017 10:00 [id number] 2017 2:00 [id number] The Intake and Output Totals for the last 24 hours are:[id number] 1 Intake Output Enteral - Oral 120 mL Urine 2725 mL Medicated IV Drips 434 mL T [id number]/7394% Date/Time04/06 6: 6: 6: 6: 6:55Range(35.9C - 36.6C ) (65 - 77 ) (18 - 20 ) (111 - 132 )/ (67 - 76 ) (92%- 96% ) Igykanw27/19 3:28: Weight in kg (Weight (kg)) 72944/19 3:28: Weight in lbs ((lbs)) 238.3 Physical Exam: Constitutional: lying in bed; NAD, cooperativeEyes: sclera clearENMT: mucous membranes moistHead/Neck: neck suppleRespiratory/Thorax: nonlabored; fair inspir effort and cough; occas loosesounding cough; mildly diminished basessternum stableCardiovascular: RRR; TELE - SR 60s-70sno wiresGastrointestinal: obese; soft; NT/ND; BS+; BM 04/04Genitourinary: voiding per urinal; no dysuriaMusculoskeletal: MAEExtremities: no edema; well perfusedNeurological: awake; A&Ox4; no focal defPsychological: Appropriate mood and behaviorSkin: warm and dryINCISIONS: midsternal, leg YUDI, well approx, w/o s/s infection Medication: Medications: Continuous Medications --1. Heparin 25,000 units/ D5W 250 mL Infusion..: 2000 units/hr IntraVenous Scheduled Medications --1. Aspirin Enteric Coated: 81 mg Oral Daily2. Atorvastatin: 40 mg Oral Daily3. Citalopram (CELEXA): 20 mg Oral Daily4. Docusate: 100 mg Oral 2 Times a Day5. Fludrocortisone: 0.05 mg Oral 6. Furosemide Injectable: 20 mg IntraVenous Push 2 Times a Day7. Hydrocortisone: 15 mg Oral 8. Hydrocortisone: 10 mg Oral 9. Hydrocortisone: 5 mg Oral 10. Insulin Glargine (Lantus) Injectable: 20 unit(s) SubCutaneous YwAqfaqbr95. Insulin Lispro (HumaLOG) Injectable: 6 unit(s) SubCutaneous 3 Times aDay Before Meals12. Insulin Lispro Mild Corrective Scale: unit(s) SubCutaneous 3 Times a DayBefore Meals13. Iron Polysaccharide Complex: 150 mg Oral Daily14. Levothyroxine: 150 microgram(s) Oral Daily15. Lidocaine 5% TransDermal: 1 patch TransDermal Every 24 Hours16. Lisinopril: 5 mg Oral Daily17. Metoprolol Tartrate: 75 mg Oral Every 12 Hours18. Multivitamin with Minerals: 1 tablet(s) Oral Daily19. Pantoprazole: 40 mg Oral Daily20. Polyethylene Glycol: 17 gram(s) Oral 3 Times a Day21. rOPINIRole (REQUIP XL) Extended Release: 8 mg Oral Daily22. Warfarin: 7.5 mg Oral Daily PRN Medications --1. Bisacodyl Rectal: 10 mg Rectal Daily2. Dextrose 50% in Water Injectable: 25 gram(s) IntraVenous Push Every 31Evkprvx8. Glucagon Injectable: 1 mg IntraMuscular Every 15 Minutes4. Ondansetron Injectable: 4 mg IntraVenous Push Every 6 Hours5. oxyCODONE Immediate Release: 5 mg Oral Every 4 Hours Recent Lab Results: Results:I have reviewed these laboratory results: Glucose_POCT Trending View [id number] 07:00:00 05-Apr-2018 20:52:00 05-Apr-2018 17:25:00 05-Apr-2018 11:37:00 05-Apr-2018 07:13:00Glucose-NQSD571 H 289 H 222 H 193 H 129 H Coagulation Screen 06-Apr-2018 04:14:00 ResultValueLab Comment: APTT CALLED RB TO ASHWIN JIANG , 04/06/2018 05:23Prothrombin Time, Plasma 16.5 HInternational Normalized Ratio, Plasma 1.5 HActivated Partial Thromboplastin Time 105 HH Complete Blood Count 06-Apr-2018 04:14:00 ResultValueWhite Blood Cell Count 12.3 HNucleated Erythrocyte Count 0.0Red Blood Cell Count 3.44 LHGB 10.6 LHCT 31.7 LMCV 92MCHC 33.4PLT 304RDW-CV 13.0 Renal Function Panel 06-Apr-2018 04:14:00 ResultValueGlucose, Serum 105 HNA 136K 4.1CL 98Bicarbonate, Serum 29Anion Gap, Serum 13BUN 23CREAT 1.28GFR-Non 56 AGFR- 68Calcium, Serum 9.0Phosphorus, Serum 3.8ALB 3.7 Magnesium, Serum 06-Apr-2018 04:14:00 ResultValueMagnesium, Serum 2.03 Heparin assay, UFH 06-Apr-2018 04:14:00 ResultValueHeparin assay, UFH 0.8 Radiology Results: Results:I have reviewed this radiology result: Impression:1. Trace right apical pneumothorax, stable to slightly improved from prior.2. Stable enlargement of cardiomediastinal silhouette similar bibasilaratelectasis and trace pleural effusions, better seen on lateral projection. Xray Chest 2 View PA + Lateral [Apr 04 2018 9:03AM] Assessment and Plan:Assessment:67 yo WM with no prior history of CAD, who has a past medical history of HTN,HLD, T2DM, [facility]'s disease, hypothyroidism, COPD, AKASH on CPAP, prostate Spring/p prostatectomy in 2011, and psoriasis who was [facility] on 03/18 for CABG eval. [place] pressure and dyspnea. He as found to havebilat PEs, was started on Heparin gtt, and transferred to [facility]. He wasfound to have a troponin leak at 2.25. Cardiology was consulted and the patientwas diagnosed with ACS, NSTEMI. He underwent a TTE and cath. He had normal EF,mild AI, and triple vessel CAD so was transferred to [facility] for CABG eval.Pulm consulted for PE workup. 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 03/23/2018 OPERATION/PROCEDURE: by Severiano RodriguezapInferior vena cava filter. 03/31/18 OPERATION/PROCEDURE: by Dr. Hernandez x 3; REIS to LAD, SVG to PDA, SVG to DiagEndoscopic harvest of right saphenous vein CTICU course: HTN, endo following for DM and [facility]'s disease, insulin gtt;one CT with air leak Transferred to T3 04/02 IMPRESSION AND PLAN: POD #6 s/p CABGx3 on 03/31- increase activity/ ambulation; PT/OT- encourage IS, C/DB; respiratory therapy; off O2- cardiac rehab referral- continue cardiac meds: asa, statin, BB, lauren- pain and anticonstipation meds- no air leak so remaining 2 CTs out 04/03- 2v CXR 04/04- epicardial wires CUT 04/05- tele until discharge and optimize lytes- optimize nutrition Rhythm- SR 60s-70s- noted 8 beat NSVT 04/02 on tele review- 04/05 changed metoprolol to 75 mg PO BID from 50 mg PO q8 Acute postop blood loss anemia- hct 31.7 [29.5, 26.6, 28.5]- MV, 1 month iron- daily CBC Postop Volume/Electrolyte status - preop wt 106.8; EF normal- wt 108 [109.8, 109.9, 109.8]- 04/02 received 40mg oral Lasix- 04/03 adding 20mg IV Lasix daily for am- 04/04 increased 20mg IV Lasix to BID- adjust diuresis as needed for postop cardiac surgery hypervolemia- replete electrolytes for hypokalemia/hypomagnesemia/hyp ophosphatemia asneeded - 04/03 replaced K, 04/04 replaced K and Mg; 04/05 replaced K and Mg Renal - admission Cr 1.42, baseline 1.4-1.6; peak postop Cr 1.68- Cr 1.28 [1.37, 1.24, 1.3, 1.32, 1.37]- avoid hypotension and nephrotoxics- tolerating diuresis and lauren- daily renal panel Endo - h/o [facility]'s disease, DM, hypothyroidism- Appreciate endo recs, now have signed off as of 04/04- hydrocortisone taper ordered as per Endo recs for [facility]'s- starting fludrocortisone 4 days per week on 04/06 as per Endo recs forAddison's- adjusted DM regimen as per Endo recs- continue levothyroxine- DM diet, accuchecks, SSI Unprovoked bilat PE's preop- Pulm consult evaluated pt preop: surgery delayed as per pulm recs for heparinanticoagulation of appropriate interval; IVC filter placed 03/23- As per Dr Yu:--- Place IVC filter electively before surgery as heparin will need to beinterrupted - can retrieve fliter in 4-6 weeks if patient can take continuousanticoagulation.--- Consideration of anticoagulation beyond 6 months duration--- Would restart unfractionated heparin after cardiac surgery and transitionto DOAC if tolerated and no substantial bleeding risk from surgery. If bleedingremains a concern, reversible VKA etc may be a better choice.- 04/03 heparin gtt started once CTs removed as per Dr Gaston; will heparin bridgeto coumadin- plan f/u with Vascular surgery Dr Stapleton to arrange filter removal h/o HTN; home med: lisinopril 20 mg PO daily- sbp 111-132- 04/05 d/c hydralazine and started lisinopril 5 mg PO daily h/o HLD- continue statin Neuro/Psych - h/o depression, RLS- continue home citalopram- continue home ropinirole Proph- DVT prophylaxis - subcu heparin stopped 04/03 when added heparin gtt- SCD's/Darlyn hose Disp- PT evaluation - home PT- anticipate discharge when INR therapeutic- plan [facility] coumadin clinic under wood heel cementer Dr Pisano- plan homebirth midwife and PT- continue to assess discharge needs Signature/Cosignature/Attestat ion:Provider/Team Contact Info-Pager Numberwillis surgery [phone] Electronic Signatures:Ludwig Riley (LOAN SERVICES PROFESSIONAL-REPLANTER) (Signed 06-Apr-2018 18:26)Authored: Service, Subjective Data, Objective Data, Assessment and Plan,Signature/Cosignature/Att estation Last Updated: 06-Apr-2018 18:26 by Mary [place] (LOAN SERVICES PROFESSIONAL-REPLANTER) Normal [facility] GLUCOSE-POCTon 04-06-2018 Glucose mass conc 303 mg/dL High 74 - 99 [facility] Comment on above: Performed By: #### C BC ####[id number] [place] [address] Glucose mass conc 290 mg/dL High 74 - 99 [facility] Comment on above: Performed By: #### C BC ####[id number] [place] [address] Glucose mass conc 268 mg/dL High 74 - 99 [facility] Comment on above: Performed By: #### C BC ####[id number] [place] [address] Glucose mass conc 118 mg/dL High 74 - 99 [facility] Comment on above: Performed By: #### C BC ####[id number] [place] [address] HEPARIN ASSAY,UFHon 04-06-20 HEPARIN ASSAY,UFH 0.5 IU/mL Normal [facility] Comment on above: Result Comment: The therapeutic reference range for UFH may be either 0.3-0.6 IU/mL or 0.3-0.7 IU/mL based on the clinical setting for anticoagulant therapy and the associated nomogram used. For heparin dosing guidelines based on clinical scenario and Heparin Assay results, please refer to local Pharmacy and the [facility] Guidelines for Anticoagulation therapy available on the [facility] intranet at:[email or web address]_Guidelines_[email or web address].aspx Performed By: #### C BC ####[id number] [place] [address] HEPARIN ASSAY,UFH 0.7 IU/mL Normal [facility] Comment on above: Result Comment: The therapeutic reference range for UFH may be either 0.3-0.6 IU/mL or 0.3-0.7 IU/mL based on the clinical setting for anticoagulant therapy and the associated nomogram used. For heparin dosing guidelines based on clinical scenario and Heparin Assay results, please refer to local Pharmacy and the [facility] Guidelines for Anticoagulation therapy available on the [facility] intranet at:[email or web address]_Guidelines_for_[email or web address].aspx Performed By: #### C BC ####[id number] [id number] HEPARIN ASSAY,UFH Canceled Normal [facility] Comment on above: Order Comment: TEST HEPARIN ASSAY,UFH WAS CANCELLED, 04/06/2018 10:03 NO SPECIMEN RECEIVEDIN LAB. Result Comment: The therapeutic reference range for UFH may be either 0.3-0.6 IU/mL or 0.3-0.7 IU/mL based on the clinical setting for anticoagulant therapy and the associated nomogram used. For heparin dosing guidelines based on clinical scenario and Heparin Assay results, please refer to local Pharmacy and the [facility] Guidelines for Anticoagulation therapy available on the [facility] intranet at:[email or web address]_Guidelines_for_Anticoagu.aspx Performed By: #### C BC ####[id number] [id number] HEPARIN ASSAY,UFH Canceled Normal [facility] Comment on above: Order Comment: TEST HEPARIN ASSAY,UFH WAS CANCELLED, 04/06/2018 09:52 NO SPECIMEN RECEIVEDIN LAB. Result Comment: The therapeutic reference range for UFH may be either 0.3-0.6 IU/mL or 0.3-0.7 IU/mL based on the clinical setting for anticoagulant therapy and the associated nomogram used. For heparin dosing guidelines based on clinical scenario and Heparin Assay results, please refer to local Pharmacy and the [facility] Guidelines for Anticoagulation therapy available on the [facility] intranet at:[email or web address]_Guidelines_for_Anticoagu.aspx Performed By: #### C BC ####[id number] [place] [address] HEPARIN ASSAY,UFH 0.8 IU/mL Normal [facility] Comment on above: Result Comment: The therapeutic reference range for UFH may be either 0.3-0.6 IU/mL or 0.3-0.7 IU/mL based on the clinical setting for anticoagulant therapy and the associated nomogram used. For heparin dosing guidelines based on clinical scenario and Heparin Assay results, please refer to local Pharmacy and the [facility] Guidelines for Anticoagulation therapy available on the [facility] intranet at:[email or web address]_Guidelines_for_Anticoagu.aspx Performed By: #### C BC ####[id number] [place] [address] MAGNESIUMon 04-06-2018 Magnesium mass conc 2.03 mg/dL Normal 1.60 - 2.40 [facility] Comment on above: Performed By: #### C BC ####[id number] [place] [address] Nutrition Therapy-Noteon Nutrition Therapy-Note Assessment Subjective/Objective:Note Type: Note Note Authored by: Registered Dietitian NutritionistPager Number: [phone] Nutrition Note:The patient is a 67 year old Male who is Hospital Day # 20 and POD #6 for CABGx 3. --> Consult per RN for extended stay menu. Pt declined need for any diet education on this date. Currently on a Regulardiet. Extended stay menu provided per patient request. Electronic Signatures:Claribel Damon (JASMEET VORA) (Signed 06-Apr-2018 11:27)Authored: Assessment Subjective/Objective Last Updated: 06-Apr-2018 11:27 by Claribel Damon (JASMEET VORA) Normal [facility] PT/INRon 04-06-2018 INR Coag RelTime (PPP) Canceled Normal [facility] Comment on above: Order Comment: TEST PT/INR WAS CANCELLED, 04/06/2018 09:51 NO SPECIMEN RECEIVED IN LAB. Performed By: #### C BC ####[id number] [place] [address] Prothrombin time (PT) Coag time (PPP) Canceled Normal [facility] Comment on above: Order Comment: TEST PT/INR WAS CANCELLED, 04/06/2018 09:51 NO SPECIMEN RECEIVED IN LAB. Result Comment: Note new reference range as of 03/10/2018. Performed By: #### C BC ####[id number] [place] [address] RENAL FUNCTION PANELon 04-06 Albumin mass conc 3.7 g/dL Normal 3.4 - 5.0 [facility] Comment on above: Performed By: #### C BC ####[id number] [place] [address] Anion gap 3 molar conc 13 mmol/L Normal 10 - 20 [facility] Comment on above: Performed By: #### C BC ####[id number] [place] [address] Calcium mass conc 9.0 mg/dL Normal 8.6 - 10.6 [facility] Comment on above: Performed By: #### C BC ####[id number] [place] [address] Chloride molar conc 98 mmol/L Normal 98 - 107 [facility] Comment on above: Performed By: #### C BC ####[id number] [place] [address] Creatinine mass conc 1.28 mg/dL Normal 0.50 - 1.30 [facility] Comment on above: Performed By: #### C BC ####[id number] [place] [address] GFR- AM. 68 mL/min/1.73m2 Normal >60 [facility] Comment on above: Result Comment: CALC ULATIONS OF ESTIMATED GFR ARE PERFORMED USING THE MDRD STUDY EQUATION FOR THE IDMS-TRACEABLE CREATININE METHODS. CLIN CHEM 2007;53:766-72 Performed By: #### C BC ####[id number] [place] [address] GFR-NON AM. 56 mL/min/1.73m2 Abnormal >60 [facility] Comment on above: Performed By: #### C BC ####[id number] [place] [address] Glucose mass conc 105 mg/dL High 74 - 99 [facility] Comment on above: Performed By: #### C BC ####[id number] [place] [address] HCO3 molar conc (Bld) 29 mmol/L Normal 21 - 32 [facility] Comment on above: Performed By: #### C BC ####[id number] [place] [address] Phosphate mass conc 3.8 mg/dL Normal 2.5 - 4.9 [facility] Comment on above: Result Comment: The performance characteristics of phosphorus testing in heparinized plasma have been validated by the individual laboratory site where testing is performed. Testing on heparinized plasma is not approved by the FDA; however, such approval is not necessary. Performed By: #### C BC ####[id number] [place] [address] Potassium molar conc 4.1 mmol/L Normal 3.5 - 5.3 [facility] Comment on above: Performed By: #### C BC ####[id number] [place] [address] Sodium molar conc 136 mmol/L Normal 136 - 145 [facility] Comment on above: Performed By: #### C BC ####[id number] [place] [address] Urea nitrogen mass conc 23 mg/dL Normal 6 - 23 [facility] Comment on above: Performed By: #### C BC ####[id number] [place] [address] CBCon 04-05-2018 Erythrocyte distribution width Auto Ratio (RBC) 12.7 % Normal 11.5 - 14.5 [facility] Comment on above: Performed By: #### C BC ####[id number] Hematocrit Auto Volume Fraction (Bld) 29.5 % Low 41.0 - 52.0 [facility] Comment on above: Performed By: #### C BC ####[id number] [place] [address] Hemoglobin mass conc (Bld) 9.8 g/dL Low 13.5 - 17.5 [facility] Comment on above: Performed By: #### C BC ####[id number], [place] MCHC Auto mass conc (RBC) 33.2 g/dL Normal 32.0 - 36.0 [facility] Comment on above: Performed By: #### C BC ####[id number], [place] MCV Auto Entitic volume (RBC) 91 fL Normal 80 - 100 [facility] Comment on above: Performed By: #### C BC ####[id number], [place] Nucleated RBC/100 WBC Ratio (Bld) 0.0 /100 WBC Normal 0.0-0.0 [facility] Comment on above: Performed By: #### C BC ####[id number] [place] [address] Platelets Auto #/vol (Bld) 249 10*3/uL Normal 150 - 450 [facility] Comment on above: Performed By: #### C BC ####[id number] [place] [address] RBC Auto #/vol (Bld) 3.23 x10E12/L Low 4.50 - 5.90 [facility] Comment on above: Performed By: #### C BC ####[id number] [place] [address] WBC Auto #/vol (Bld) 10.2 10*3/uL Normal 4.4 - 11.3 [facility] Comment on above: Performed By: #### C BC ####[id number] [place] [address] COAGULATION SCREENon 04-05- 018 aPTT Coag time (Bld) 93 s High 28 - 38 [facility] Comment on above: Result Comment: Note new reference range as of 03/10/2018. THE APTT IS NO LONGER USED FOR MONITORING UNFRACTIONATED HEPARIN THERAPY. FOR MONITORING HEPARIN THERAPY, USE THE HEPARIN ASSAY. Performed By: #### C BC ####[id number] [place] [address] INR Coag RelTime (PPP) 1.4 {INR} High 0.9 - 1.1 [facility] Comment on above: Performed By: #### C BC ####[id number] [place] [address] Prothrombin time (PT) Coag time (PPP) 15.1 s High 9.7 - 12.7 [facility] Comment on above: Result Comment: Note new reference range as of 03/10/2018. Performed By: #### C BC ####[id number] [id number] Clinical Event Note-CUT epic ardial wireson 04-05-2018 Clinical Event Note-CUT epicardial wires Event:Topic: CUT epicardial wiresDetails:11:05 Atrial and ventricular wires cut at skin level. Patient instructed tonotify radiology of retained epicardial wires prior to any MRI procedure, andto notify Dr. Connors of any visible wires or s/s infection. Provider / Team Contact Information:Provider/Team Contact Info-Pager Number: cardiac surgery [phone] Electronic Signatures:Alexandra Milligan (PAC) (Signed 05-Apr-2018 11:17)Authored: Event, Provider / Team Contact Information Last Updated: 05-Apr-2018 11:17 by Alexandra Milligan (PAC) Normal [facility] Daily Progress Note-Cardiac Surgeryon 04-05-2018 Protein mass conc Service: Cardiac Iris dane Subjective Data:DON ELKINS is a 67 year old Male who is Hospital Day # 19 and POD #5 for CABGx 3;-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 Overnight Events: Patient had an uneventful night.Additional Information:Patient eager to go home, I explained to patient we are bridging heparin tocoumadin and it could take a couple more days; patient in understanding;patient feeling well, no complaints overnight Objective Data: Objective Information: T [id number]/6996% Date/Time04/05 10: 10: 10: 10: 10:56Range(36.3C - 37.5C ) (63 - 75 ) (18 - 20 ) (109 - 131 )/ (64 - 75 ) (93%- 96% )Highest temp of 37.5 C was recorded at 04/04 22:38 Pain with Activity reported at 04/05 8:20: 0Pain at Rest reported at 04/05 8:20: 0 Wbkzdfa22/18 2:00: Weight in kg (Weight (kg)) 109.8106/05 2:00: Weight in lbs ((lbs)) 242.1 ---- Intake and Output -----Mn/Dy/Year TimeIntakeOutputNov[facility], [facility] 2017 6:00 [id number] 2017 10:00 [id number] 2017 2:00 [id number] The Intake and Output Totals for the last 24 hours are:[id number] Physical Exam: Constitutional: lying in bed; NAD, cooperativeEyes: sclera clearENMT: mucous membranes moistHead/Neck: neck suppleRespiratory/Thorax: nonlabored; fair inspir effort and cough; occas loosesounding cough; mildly diminished basessternum stableCardiovascular: RRR; TELE - SR 70s; 04/02 8 beat NSVT notedwires to temp pacer A60, no pacing noted - CUT today on exam 04/05Gastrointestinal: obese; soft; NT/ND; BS+; BM 04/04Genitourinary: voiding per urinal; no dysuriaMusculoskeletal: MAEExtremities: trace BLE edema; well perfusedNeurological: awake; A&Ox4; no focal defPsychological: Appropriate mood and behaviorSkin: warm and dryINCISIONS: midsternal, leg SUBMARINE DIVER, well approx, w/o s/s infection Medication: Medications: Continuous Medications -- 1. Heparin 25,000 units/ D5W 250 mL Infusion..: 2000 units/hr IntraVenous Scheduled Medications -- 1. Aspirin Enteric Coated: 81 mg Oral Daily2. Atorvastatin: 40 mg Oral Daily3. Citalopram (CELEXA): 20 mg Oral Daily4. Docusate: 100 mg Oral 2 Times a Day5. Furosemide Injectable: 20 mg IntraVenous Push 2 Times a Day6. hydrALAZINE: 25 mg Oral Every 8 Hours7. Hydrocortisone: 10 mg Oral 8. Insulin Glargine (Lantus) Injectable: 20 unit(s) SubCutaneous At Bedtime 9. Insulin Lispro (HumaLOG) Injectable: 6 unit(s) SubCutaneous 3 Times aDay Before Meals10. Insulin Lispro Mild Corrective Scale: unit(s) SubCutaneous 3 Times a DayBefore Meals11. Iron Polysaccharide Complex: 150 mg Oral Daily12. Levothyroxine: 150 microgram(s) Oral Daily13. Lidocaine 5% TransDermal: 1 patch TransDermal Every 24 Hours14. Magnesium Oxide: 400 mg Oral Once15. Metoprolol Tartrate: 75 mg Oral Every 12 Hours16. Multivitamin with Minerals: 1 tablet(s) Oral Daily17. Pantoprazole: 40 mg Oral Daily18. Polyethylene Glycol: 17 gram(s) Oral 3 Times a Day19. Potassium Chloride Extended Release: 40 mEq Oral 2 Times a Day20. rOPINIRole (REQUIP XL) Extended Release: 8 mg Oral Daily21. Warfarin: 7.5 mg Oral Daily PRN Medications -- 1. Bisacodyl Rectal: 10 mg Rectal Daily2. Dextrose 50% in Water Injectable: 25 gram(s) IntraVenous Push Every 16Zqwuwgn0. Glucagon Injectable: 1 mg IntraMuscular Every 15 Minutes4. Ondansetron Injectable: 4 mg IntraVenous Push Every 6 Hours5. oxyCODONE Immediate Release: 5 mg Oral Every 4 Hours6. oxyCODONE Immediate Release: 10 mg Oral Every 4 Hours Recent Lab Results: Results: I have reviewed these laboratory results: Complete Blood Count 05-Apr-2018 09:35:00 ResultValueWhite Blood Cell Count 10.2Nucleated Erythrocyte Count 0.0Red Blood Cell Count 3.23 LHGB 9.8 LHCT 29.5 LMCV 91MCHC 33.2PLT 249RDW-CV 12.7 Coagulation Screen 05-Apr-2018 09:35:00 ResultValueProthrombin Time, Plasma 15.1 HInternational Normalized Ratio, Plasma 1.4 HActivated Partial Thromboplastin Time 93 H Renal Function Panel 05-Apr-2018 09:35:00 ResultValueGlucose, Serum 200 HNA 133 LK 3.3 LCL 96 LBicarbonate, Serum 26Anion Gap, Serum 14BUN 23CREAT 1.37 HGFR-Non 52 AGFR- 63Calcium, Serum 8.5 LPhosphorus, Serum 2.9ALB 3.3 L Magnesium, Serum 05-Apr-2018 09:35:00 ResultValueMagnesium, Serum 1.75 Heparin assay, UFH 05-Apr-2018 09:35:00 ResultValueHeparin assay, UFH 0.7 Glucose_POCT 05-Apr-2018 07:13:00 ResultValueGlucose-POCT 129 H Radiology Results: Results: Impression: 1. Trace right apical pneumothorax, stable to slightly improved fromprior.2. Stable enlargement of cardiomediastinal silhouette similarbibasilar atelectasis and trace pleural effusions, better seen onlateral projection. Xray Chest 2 View PA + Lateral [Apr 04 2018 9:03AM] Assessment and Plan:Assessment:67 yo WM with no prior history of CAD, who has a past medical history of HTN,HLD, T2DM, [facility]'s disease, hypothyroidism, COPD, AKASH on CPAP, prostate Spring/p prostatectomy in 2011, and psoriasis who was [facility] on 03/18 for CABG eval. [place] pressure and dyspnea. He as found to havebilat PEs, was started on Heparin gtt, and transferred to [facility]. He wasfound to have a troponin leak at 2.25. Cardiology was consulted and the patientwas diagnosed with ACS, NSTEMI. He underwent a TTE and cath. He had normal EF,mild AI, and triple vessel CAD so was transferred to [facility] for CABG eval.Pulm consulted for PE workup. Pt required unfractionated heparin infusion for7-10 days to take advantage of intrinsic fibrinolysis and clot stabilization,as well as an IVC filter.Endocrine consulted for evaluation of [facility] disease and treatment periop.Also managed DM. 03/23/2018 OPERATION/PROCEDURE: by Severiano KaskalyaniapInferior vena cava filter. 03/31/18 OPERATION/PROCEDURE: by Dr. Hernandez x 3; REIS to LAD, SVG to PDA, SVG to DiagEndoscopic harvest of right saphenous vein CTICU course: HTN, endo following for DM and [facility]'s disease, insulin gtt;one CT with air leak Transferred to T3 04/02 IMPRESSION AND PLAN: POD #5 s/p CABGx3 on 03/31- increase activity/ ambulation; PT/OT- encourage IS, C/DB; respiratory therapy; wean O2 as [place]- cardiac rehab referral- continue cardiac meds: asa, statin, BB- on hydralazine out of ICU; change to lauren if renal function allows- pain and anticonstipation meds- no air leak so remaining 2 CTs out 04/03- 2v CXR 04/04- remove epicardial wires prior to discharge; will need to cut ifanticoagulated - CUT 04/05- tele until discharge and optimize lytes- optimize nutrition Rhythm- SR 70s-80s- noted 8 beat NSVT 04/02 on tele review- 04/05 changed metoprolol to 75 mg PO BID from 50 mg PO q8 Acute postop blood loss anemia- hct 29.5, 26.6, 28.5- MV, 1 month iron- daily CBC Postop thrombocytopenia- plts 249, 173, 144, 130, 122- daily cbc Postop Volume/Electrolyte status - preop wt 106.8 ; EF normal- wt 109.8, 109.9, 109.8- 04/02 received 40mg oral Lasix- 04/03 adding 20mg IV Lasix daily for am- 04/04 increased Lasix to BID- adjust diuresis as needed for postop cardiac surgery hypervolemia- replete electrolytes for hypokalemia/hypomagnesemia/hyp ophosphatemia asneeded - 04/03 replaced K, 04/04 replaced K and Mg; 04/05 replaced K and Mg Endo - h/o [facility]'s disease, DM, hypothyroidism- Appreciate endo recs, now have signed off as of 04/04- hydrocortisone taper ordered as per Endo recs for Brigida's- starting fludrocortisone 4 days per week on 04/06 as per Endo recs forAddison's- adjusting DM regimen as per Endo recs- continue levothyroxine- DM diet, accuchecks, SSI Unprovoked bilat PE's preop- Pulm consult evaluated pt preop: surgery delayed as per pulm recs for heparinanticoagulation of appropriate interval; IVC filter placed 03/23- As per Dr Yu:--- Place IVC filter electively before surgery as heparin will need to beinterrupted - can retrieve fliter in 4-6 weeks if patient can take continuousanticoagulation.--- Consideration of anticoagulation beyond 6 months duration--- Would restart unfractionated heparin after cardiac surgery and transitionto DOAC if tolerated and no substantial bleeding risk from surgery. If bleedingremains a concern, reversible VKA etc may be a better choice.- 04/03 heparin gtt started once CTs removed as per Dr Gaston; will heparin bridgeto coumadin- plan f/u with Vascular surgery Dr Stapleton to arrange filter removal h/o HTN; home med: lisinopril 20 mg PO daily- 04/05 d/c hydralazine and started lisinopril 5 mg PO daily h/o HLD- continue statin Neuro/Psych - h/o depression, RLS- continue home citalopram- continue home ropinirole Proph- DVT prophylaxis - subcu heparin; stopped 04/03 when added heparin gtt- SCD's/Adrlyn hose Disp- PT evaluation - home PT- anticipate discharge next 2-3 days depending on INR- plan homebirth midwife and PT- continue to assess discharge needs Plan of care discussed with Dr. Gaston Signature/Cosignature/Attestat ion:Provider/Team Contact Info-Pager Numbercardiac surgery [phone] Electronic Signatures:Alexandra Milligan (PAC) (Signed 05-Apr-2018 15:48)Authored: Service, Subjective Data, Objective Data, Assessment and Plan,Signature/Cosignature/Att estation Last Updated: 05-Apr-2018 15:48 by Alexandra Milligan (PAC) Normal [facility] GLUCOSE-POCTon 04-05-2018 Glucose mass conc 289 mg/dL High 74 - 99 [facility] Comment on above: Performed By: #### C BC ####[id number] [place] [address] Glucose mass conc 222 mg/dL High 74 - 99 [facility] Comment on above: Performed By: #### C BC ####[id number] [place] [address] Glucose mass conc 193 mg/dL High 74 - 99 [facility] Comment on above: Performed By: #### C BC ####[id number] [place] [address] Glucose mass conc 129 mg/dL High 74 - 99 [facility] Comment on above: Performed By: #### C BC ####[id number] [place] [address] HEPARIN ASSAY,UFHon 04-05-20 18 HEPARIN ASSAY,UFH 0.7 IU/mL Normal [facility] Comment on above: Result Comment: The therapeutic reference range for UFH may be either 0.3-0.6 IU/mL or 0.3-0.7 IU/mL based on the clinical setting for anticoagulant therapy and the associated nomogram used. For heparin dosing guidelines based on clinical scenario and Heparin Assay results, please refer to local Pharmacy and the [facility] Guidelines for Anticoagulation therapy available on the [facility] intranet at:[email or web address] Performed By: #### C BC ####[id number] [place] [address] MAGNESIUMon 04-05-2018 Magnesium mass conc 1.75 mg/dL Normal 1.60 - 2.40 [facility] Comment on above: Performed By: #### C BC ####[id number] [place] [address] RENAL FUNCTION PANELon 04-05 Albumin mass conc 3.3 g/dL Low 3.4 - 5.0 [facility] Comment on above: Performed By: #### C BC ####[id number] [place] [address] Anion gap 3 molar conc 14 mmol/L Normal 10 - 20 [facility] Comment on above: Performed By: #### C BC ####[id number] [place] [address] Calcium mass conc 8.5 mg/dL Low 8.6 - 10.6 [facility] Comment on above: Performed By: #### C BC ####[id number] [place] [address] Chloride molar conc 96 mmol/L Low 98 - 107 [facility] Comment on above: Performed By: #### C BC ####[id number] [place] [address] Creatinine mass conc 1.37 mg/dL High 0.50 - 1.30 [facility] Comment on above: Performed By: #### C BC ####[id number] [place] [address] GFR- AM. 63 mL/min/1.73m2 Normal >60 [facility] Comment on above: Result Comment: CALC ULATIONS OF ESTIMATED GFR ARE PERFORMED USING THE MDRD STUDY EQUATION FOR THE IDMS-TRACEABLE CREATININE METHODS. CLIN CHEM 2007;53:766-72 Performed By: #### C BC ####[id number] [place] [address] GFR-NON AM. 52 mL/min/1.73m2 Abnormal >60 [facility] Comment on above: Performed By: #### C BC ####[id number] [place] [address] Glucose mass conc 200 mg/dL High 74 - 99 [facility] Comment on above: Performed By: #### C BC ####[id number] [place] [address] HCO3 molar conc (Bld) 26 mmol/L Normal 21 - 32 [facility] Comment on above: Performed By: #### C BC ####[id number] [place] [address] Phosphate mass conc 2.9 mg/dL Normal 2.5 - 4.9 [facility] Comment on above: Result Comment: The performance characteristics of phosphorus testing in heparinized plasma have been validated by the individual laboratory site where testing is performed. Testing on heparinized plasma is not approved by the FDA; however, such approval is not necessary. Performed By: #### C BC ####[id number] [place] [address] Potassium molar conc 3.3 mmol/L Low 3.5 - 5.3 [facility] Comment on above: Performed By: #### C BC ####[id number] [place] [address] Sodium molar conc 133 mmol/L Low 136 - 145 [facility] Comment on above: Performed By: #### C BC ####[id number] [place] [address] Urea nitrogen mass conc 23 mg/dL Normal 6 - 23 [facility] Comment on above: Performed By: #### C BC ####[id number] [place] [address] CBCon 04-04-2018 Erythrocyte distribution width Auto Ratio (RBC) Canceled Normal [facility] Comment on above: Order Comment: TEST CBC WAS CANCELLED, 04/04/2018 18:30 ?Cancel Reason: Cancelled. Performed By: #### C BC ####[id number] [place] [address] Hematocrit Auto Volume Fraction (Bld) Canceled Normal [facility] Comment on above: Order Comment: TEST CBC WAS CANCELLED, 04/04/2018 18:30 ?Cancel Reason: Cancelled. Performed By: #### C BC ####[id number] [place] [address] Hemoglobin mass conc (Bld) Canceled Normal [facility] Comment on above: Order Comment: TEST CBC WAS CANCELLED, 04/04/2018 18:30 ?Cancel Reason: Cancelled. Performed By: #### C BC ####[id number] [place] [address] MCHC Auto mass conc (RBC) Canceled Normal [facility] Comment on above: Order Comment: TEST CBC WAS CANCELLED, 04/04/2018 18:30 ?Cancel Reason: Cancelled. Performed By: #### C BC ####[id number] [place] [address] MCV Auto Entitic volume (RBC) Canceled Normal [facility] Comment on above: Order Comment: TEST CBC WAS CANCELLED, 04/04/2018 18:30 ?Cancel Reason: Cancelled. Performed By: #### C BC ####[id number] [place] [address] Nucleated RBC/100 WBC Ratio (Bld) Canceled Normal [facility] Comment on above: Order Comment: TEST CBC WAS CANCELLED, 04/04/2018 18:30 ?Cancel Reason: Cancelled. Performed By: #### C BC ####[id number] [place] [address] Platelets Auto #/vol (Bld) Canceled Normal [facility] Comment on above: Order Comment: TEST CBC WAS CANCELLED, 04/04/2018 18:30 ?Cancel Reason: Cancelled. Performed By: #### C BC ####[id number] [place] [address] RBC Auto #/vol (Bld) Canceled Normal [facility] Comment on above: Order Comment: TEST CBC WAS CANCELLED, 04/04/2018 18:30 ?Cancel Reason: Cancelled. Performed By: #### C BC ####[id number] [place] [address] WBC Auto #/vol (Bld) Canceled Normal [facility] Comment on above: Order Comment: TEST CBC WAS CANCELLED, 04/04/2018 18:30 ?Cancel Reason: Cancelled. Performed By: #### C BC ####[id number] [place] [address] Erythrocyte distribution width Auto Ratio (RBC) Canceled Normal [facility] Comment on above: Order Comment: TEST CBC WAS CANCELLED, 04/04/2018 03:39 No specimen received. Performed By: #### C BC ####[id number] [place] [address] Hematocrit Auto Volume Fraction (Bld) Canceled Normal [facility] Comment on above: Order Comment: TEST CBC WAS CANCELLED, 04/04/2018 03:39 No specimen received. Performed By: #### C BC ####[id number] [place] [address] Hemoglobin mass conc (Bld) Canceled Normal [facility] Comment on above: Order Comment: TEST CBC WAS CANCELLED, 04/04/2018 03:39 No specimen received. Performed By: #### C BC ####[id number] [place] [address] MCHC Auto mass conc (RBC) Canceled Normal [facility] Comment on above: Order Comment: TEST CBC WAS CANCELLED, 04/04/2018 03:39 No specimen received. Performed By: #### C BC ####[id number] [place] [address] MCV Auto Entitic volume (RBC) Canceled Normal [facility] Comment on above: Order Comment: TEST CBC WAS CANCELLED, 04/04/2018 03:39 No specimen received. Performed By: #### C BC ####[id number] [place] [address] Nucleated RBC/100 WBC Ratio (Bld) Canceled Normal [facility] Comment on above: Order Comment: TEST CBC WAS CANCELLED, 04/04/2018 03:39 No specimen received. Performed By: #### C BC ####[id number] [place] [address] Platelets Auto #/vol (Bld) Canceled Normal [facility] Comment on above: Order Comment: TEST CBC WAS CANCELLED, 04/04/2018 03:39 No specimen received. Performed By: #### C BC ####[id number] [place] [address] RBC Auto #/vol (Bld) Canceled Normal [facility] Comment on above: Order Comment: TEST CBC WAS CANCELLED, 04/04/2018 03:39 No specimen received. Performed By: #### C BC ####[id number] [place] [address] WBC Auto #/vol (Bld) Canceled Normal [facility] Comment on above: Order Comment: TEST CBC WAS CANCELLED, 04/04/2018 03:39 No specimen received. Performed By: #### C BC ####[id number] [place] [address] Erythrocyte distribution width Auto Ratio (RBC) 12.4 % Normal 11.5 - 14.5 [facility] Comment on above: Performed By: #### E MRAD ####NO LOCATION NEEDED Hematocrit Auto Volume Fraction (Bld) 26.8 % Low 41.0 - 52.0 [facility] Comment on above: Performed By: #### E MRAD ####NO LOCATION NEEDED Hemoglobin mass conc (Bld) 9.0 g/dL Low 13.5 - 17.5 [facility] Comment on above: Performed By: #### E MRAD ####NO LOCATION NEEDED MCHC Auto mass conc (RBC) 33.6 g/dL Normal 32.0 - 36.0 [facility] Comment on above: Performed By: #### E MRAD ####NO LOCATION NEEDED MCV Auto Entitic volume (RBC) 93 fL Normal 80 - 100 [facility] Comment on above: Performed By: #### E MRAD ####NO LOCATION NEEDED Nucleated RBC/100 WBC Ratio (Bld) 0.0 /100 WBC Normal 0.0-0.0 [facility] Comment on above: Performed By: #### E MRAD ####NO LOCATION NEEDED Platelets Auto #/vol (Bld) 168 10*3/uL Normal 150 - 450 [facility] Comment on above: Performed By: #### E MRAD ####NO LOCATION NEEDED RBC Auto #/vol (Bld) 2.89 x10E12/L Low 4.50 - 5.90 [facility] Comment on above: Performed By: #### E MRAD ####NO LOCATION NEEDED WBC Auto #/vol (Bld) 9.9 10*3/uL Normal 4.4 - 11.3 [facility] Comment on above: Performed By: #### E MRAD ####NO LOCATION NEEDED CBC AND DIFFERENTIALon 04-04 % AUTOMATED IMMATURE GRAN 0.9 % Normal 0.0 - 0.9 [facility] Comment on above: Result Comment: Perc ent differential counts (%) should be interpreted in the context of the absolute cell counts (cells/L). Performed By: #### C BC ####[id number] [place] [address] % NEUTROPHIL 62.2 % Normal 40.0 - 80.0 [facility] Comment on above: Performed By: #### C BC ####[id number] [place] [address] Basophils/100 WBC Auto (Bld) 0.8 % Normal 0.0 - 2.0 [facility] Comment on above: Performed By: #### C BC ####[id number] [place] [address] Basophils/100 WBC Auto (Bld) 0.07 x10E9/L Normal 0.00 - 0.10 [facility] Comment on above: Performed By: #### C BC ####[id number] [place] [address] Eosinophils Auto #/vol (Bld) 0.56 10*3/uL Normal 0.00 - 0.70 [facility] Comment on above: Performed By: #### C BC ####[id number] [place] [address] Eosinophils/100 WBC Auto (Bld) 6.0 % Normal 0.0 - 6.0 [facility] Comment on above: Performed By: #### C BC ####[id number] [place] [address] Erythrocyte distribution width Auto Ratio (RBC) 12.6 % Normal 11.5 - 14.5 [facility] Comment on above: Performed By: #### C BC ####[id number] [place] [address] Hematocrit Auto Volume Fraction (Bld) 26.6 % Low 41.0 - 52.0 [facility] Comment on above: Performed By: #### C BC ####[id number] [place] [address] Hemoglobin mass conc (Bld) 9.0 g/dL Low 13.5 - 17.5 [facility] Comment on above: Performed By: #### C BC ####[id number] [place] [address] Lymphocytes Auto #/vol (Bld) 1.96 10*3/uL Normal 1.20 - 4.80 [facility] Comment on above: Performed By: #### C BC ####[id number] [place] [address] Lymphocytes/100 WBC Auto (Bld) 21.0 % Normal 13.0 - 44.0 [facility] Comment on above: Performed By: #### C BC ####[id number] [place] [address] MCHC Auto mass conc (RBC) 33.8 g/dL Normal 32.0 - 36.0 [facility] Comment on above: Performed By: #### C BC ####[id number] [place] [address] MCV Auto Entitic volume (RBC) 91 fL Normal 80 - 100 [facility] Comment on above: Performed By: #### C BC ####[id number] [place] [address] Monocytes Auto #/vol (Bld) 0.85 10*3/uL Normal 0.10 - 1.00 [facility] Comment on above: Performed By: #### C BC ####[id number] [place] [address] Monocytes/100 WBC Auto (Bld) 9.1 % Normal 2.0 - 10.0 [facility] Comment on above: Performed By: #### C BC ####[id number] [place] [address] Neutrophils Auto #/vol (Bld) 5.81 10*3/uL Normal 1.20 - 7.70 [facility] Comment on above: Performed By: #### C BC ####[id number] [place] [address] Nucleated RBC/100 WBC Ratio (Bld) 0.0 /100 WBC Normal 0.0-0.0 [facility] Comment on above: Performed By: #### C BC ####[id number] [place] [address] Platelets Auto #/vol (Bld) 173 10*3/uL Normal 150 - 450 [facility] Comment on above: Performed By: #### C BC ####[id number] [place] [address] RBC Auto #/vol (Bld) 2.93 x10E12/L Low 4.50 - 5.90 [facility] Comment on above: Performed By: #### C BC ####[id number] [place] [address] WBC Auto #/vol (Bld) 9.3 10*3/uL Normal 4.4 - 11.3 [facility] Comment on above: Performed By: #### C BC ####[id number] [place] [address] COAGULATION SCREENon 17-2 018 aPTT Coag time (Bld) 79 s High 28 - 38 [facility] Comment on above: Result Comment: Note new reference range as of 03/10/2018. THE APTT IS NO LONGER USED FOR MONITORING UNFRACTIONATED HEPARIN THERAPY. FOR MONITORING HEPARIN THERAPY, USE THE HEPARIN ASSAY. Performed By: #### C BC ####[id number] [place] [address] INR Coag RelTime (PPP) 1.4 {INR} High 0.9 - 1.1 [facility] Comment on above: Performed By: #### C BC ####[id number] [place] [address] Prothrombin time (PT) Coag time (PPP) 15.3 s High 9.7 - 12.7 [facility] Comment on above: Result Comment: Note new reference range as of 03/10/2018. Performed By: #### C BC ####[id number] [place] [address] Daily Progress Note-Cardiac Surgeryon 04-04-2018 Protein mass conc Service: Cardiac Iris dane Subjective Data:DON ELKINS is a 67 year old Male who is Hospital Day # 18 and POD #4 for CABGx 3;-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 Overnight Events: Patient had an uneventful night.Additional Information:Patient eager to go home, I explained to patient we are bridging heparin tocoumadin and it could take a couple more days; patient in understanding;patient feeling well, no complaints overnight Objective Data: Objective Information: T MGQXGhG8Gyumr22.13401479/7595% Date/Time04/04 14: 14: 14: 14: 14:42Range(36C - 36.8C ) (67 - 75 ) (16 - 20 ) (117 - 128 )/ (69 - 76 ) (93% -97% ) As of 04-Apr-2018 04:41:00, patient is on 2 L/min of oxygen via nasal cannula. Pain with Activity reported at 04/04 8:15: 0Pain at Rest reported at 04/04 8:15: 0 Ublzrle03/17 4:41: Weight in kg (Weight (kg)) 109.9106/04 4:41: Weight in lbs ((lbs)) 242.5 ---- Intake and Output -----Mn/Dy/Year TimeIntakeOutputNetNov 2017 2:00 [id number] 2017 6:00 [id number] 2017 10:00 [id number] The Intake and Output Totals for the last 24 hours are:[id number] Physical Exam: Constitutional: lying in bed; NAD, cooperativeEyes: sclera clearENMT: mucous membranes moistHead/Neck: neck suppleRespiratory/Thorax: nonlabored; fair inspir effort and cough; occas loosesounding cough; mildly diminished basessternum stableCTs x 2 removed on exam 04/03Cardiovascular: RRR; TELE - SR 70s; 04/02 8 beat NSVT notedwires to temp pacer A60, no pacing notedGastrointestinal: obese; soft; NT/ND; BS+; BM 04/04Genitourinary: voiding per urinal; no dysuriaMusculoskeletal: MAEExtremities: trace BLE edema; well perfusedNeurological: awake; A&Ox4; no focal defPsychological: Appropriate mood and behaviorSkin: warm and dryINCISIONS: midsternal, leg SUBMARINE DIVER, well approx, w/o s/s infection Medication: Medications: Continuous Medications -- 1. Heparin 25,000 units/ D5W 250 mL Infusion..: 2000 units/hr IntraVenous Scheduled Medications -- 1. Aspirin Enteric Coated: 81 mg Oral Daily2. Atorvastatin: 40 mg Oral Daily3. Citalopram (CELEXA): 20 mg Oral Daily4. Docusate: 100 mg Oral 2 Times a Day5. Furosemide Injectable: 20 mg IntraVenous Push 2 Times a Day6. hydrALAZINE: 25 mg Oral Every 8 Hours7. Hydrocortisone: 20 mg Oral 8. Hydrocortisone: 10 mg Oral 9. Insulin Glargine (Lantus) Injectable: 20 unit(s) SubCutaneous At Bedtime 10. Insulin Lispro (HumaLOG) Injectable: 6 unit(s) SubCutaneous 3 Times aDay Before Meals11. Insulin Lispro Mild Corrective Scale: unit(s) SubCutaneous 3 Times a DayBefore Meals12. Iron Polysaccharide Complex: 150 mg Oral Daily13. Levothyroxine: 150 microgram(s) Oral Daily14. Lidocaine 5% TransDermal: 1 patch TransDermal Every 24 Hours15. Metoprolol Tartrate: 50 mg Oral Every 8 Hours16. Multivitamin with Minerals: 1 tablet(s) Oral Daily17. Pantoprazole: 40 mg Oral Daily18. Polyethylene Glycol: 17 gram(s) Oral 3 Times a Day19. rOPINIRole (REQUIP XL) Extended Release: 8 mg Oral Daily20. Warfarin: 5 mg Oral Daily PRN Medications -- 1. Bisacodyl Rectal: 10 mg Rectal Daily2. Dextrose 50% in Water Injectable: 25 gram(s) IntraVenous Push Every 52Bvfpbmb4. Glucagon Injectable: 1 mg IntraMuscular Every 15 Minutes4. Ondansetron Injectable: 4 mg IntraVenous Push Every 6 Hours5. oxyCODONE Immediate Release: 5 mg Oral Every 4 Hours6. oxyCODONE Immediate Release: 10 mg Oral Every 4 Hours Recent Lab Results: Results: I have reviewed these laboratory results: Glucose_POCT Trending View [id number] 15:59:00 04-Apr-2018 12:39:00 04-Apr-2018 07:30:00Glucose-FGJU183 H 248 H 207 H Coagulation Screen 04-Apr-2018 13:49:00 ResultValueProthrombin Time, Plasma 15.3 HInternational Normalized Ratio, Plasma 1.4 HActivated Partial Thromboplastin Time 79 H Complete Blood Count + Differential 04-Apr-2018 02:57:00 ResultValueWhite Blood Cell Count 9.3Nucleated Erythrocyte Count 0.0Red Blood Cell Count 2.93 LHGB 9.0 LHCT 26.6 LMCV 91MCHC 33.8PLT 173RDW-CV 12.6Neutrophil % 62.2Immature Granulocytes % 0.9Lymphocyte % 21.0Monocyte % 9.1Eosinophil % 6.0Basophil % 0.8Neutrophil Count 5.81Lymphocyte Count 1.96Monocyte Count 0.85Eosinophil Count 0.56Basophil Count 0.07 Renal Function Panel 04-Apr-2018 02:57:00 ResultValueGlucose, Serum 131 HNA 133 LK 3.8CL 97 LBicarbonate, Serum 27Anion Gap, Serum 13BUN 26 HCREAT 1.24GFR-Non 58 AGFR- 70Calcium, Serum 8.3 LPhosphorus, Serum 2.9ALB 3.2 L Magnesium, Serum 04-Apr-2018 02:57:00 ResultValueMagnesium, Serum 1.88 Heparin assay, UFH 04-Apr-2018 02:57:00 ResultValueHeparin assay, UFH 0.5 Radiology Results: Results: Impression: 1. Trace right apical pneumothorax, stable to slightly improved fromprior.2. Stable enlargement of cardiomediastinal silhouette similarbibasilar atelectasis and trace pleural effusions, better seen onlateral projection. Xray Chest 2 View PA + Lateral [Apr 04 2018 9:03AM] Assessment and Plan:Assessment:67 yo WM with no prior history of CAD, who has a past medical history of HTN,HLD, T2DM, [facility]'s disease, hypothyroidism, COPD, AKASH on CPAP, prostate Spring/p prostatectomy in 2011, and psoriasis who [facility] for CABG eval. [place] and dyspnea. He as found to havebilat PEs, was started on Heparin gtt, and transferred to [facility]. He wasfound to have a troponin leak at 2.25. Cardiology was consulted and the patientwas diagnosed with ACS, NSTEMI. He underwent a TTE and cath. He had normal EF,mild AI, and triple vessel CAD so was transferred to [facility] for CABG eval.Pulm consulted for PE workup. Pt required unfractionated heparin infusion for7-10 days to take advantage of intrinsic fibrinolysis and clot stabilization,as well as an IVC filter.Endocrine consulted for evaluation of [facility] disease and treatment periop.Also managed DM. 03/23/2018 OPERATION/PROCEDURE: by Severiano RodriguezapInferior vena cava filter. 03/31/18 OPERATION/PROCEDURE: by Dr. Hernandez x 3; REIS to LAD, SVG to PDA, SVG to DiagEndoscopic harvest of right saphenous vein CTICU course: HTN, endo following for DM and [facility]'s disease, insulin gtt;one CT with air leak Transferred to T3 04/02 IMPRESSION AND PLAN: POD #4 s/p CABGx3 on 03/31- increase activity/ ambulation; PT/OT- encourage IS, C/DB; respiratory therapy; wean O2 as [place]- cardiac rehab referral- continue cardiac meds: asa, statin, BB- on hydralazine out of ICU; change to lauren if renal function allows- pain and anticonstipation meds- no air leak so remaining 2 CTs out 04/03- 2v CXR 04/04- remove epicardial wires prior to discharge; will need to cut ifanticoagulated- tele until discharge and optimize lytes- optimize nutrition Rhythm- SR 70s-80s- noted 8 beat NSVT 04/02 on tele review- Continue Metoprolol 50 mg PO q8 hours; 04/04 changed to 75 mg PO BID wltkuyww73/18 Acute postop blood loss anemia- hct 26.6, 28.5- MV, 1 month iron- daily CBC Postop thrombocytopenia- plts 173, 144, 130, 122- daily cbc Postop Volume/Electrolyte status - preop wt 106.8 ; EF normal- wt 109.9, 109.8- 04/02 received 40mg oral Lasix- 04/03 adding 20mg IV Lasix daily for am- 04/04 increased Lasix to BID- adjust diuresis as needed for postop cardiac surgery hypervolemia- replete electrolytes for hypokalemia/hypomagnesemia/hyp ophosphatemia asneeded - 04/03 replaced K, 04/04 replaced K and Mg Endo - h/o [facility]'s disease, DM, hypothyroidism- Appreciate endo recs, now have signed off as of 04/04- hydrocortisone taper ordered as per Endo recs for [facility]'s- starting fludrocortisone 4 days per week on 04/06 as per Endo recs forAddison's- adjusting DM regimen as per Endo recs- continue levothyroxine- DM diet, accuchecks, SSI Unprovoked bilat PE's preop- Pulm consult evaluated pt preop: surgery delayed as per pulm recs for heparinanticoagulation of appropriate interval; IVC filter placed 03/23- As per Dr Yu:--- Place IVC filter electively before surgery as heparin will need to beinterrupted - can retrieve fliter in 4-6 weeks if patient can take continuousanticoagulation.--- Consideration of anticoagulation beyond 6 months duration--- Would restart unfractionated heparin after cardiac surgery and transitionto DOAC if tolerated and no substantial bleeding risk from surgery. If bleedingremains a concern, reversible VKA etc may be a better choice.- 04/03 heparin gtt started once CTs removed as per Dr Gaston; will heparin bridgeto coumadin- plan f/u with Vascular surgery Dr Stapleton to arrange filter removal h/o HTN -adjust meds as needed h/o HLD- continue statin Neuro/Psych - h/o depression, RLS- continue home citalopram- continue home ropinirole Proph- DVT prophylaxis - subcu heparin; stopped 04/03 when added heparin gtt- SCD's/Darlyn walker Disp- PT evaluation - home PT- anticipate discharge early the week of 04/06- plan homebirth midwife and PT- continue to assess discharge needs Signature/Cosignature/Attestat ion:Provider/Team Contact Info-Pager Numbercardiac surgery [phone] Electronic Signatures:Alexandra Milligan (PAC) (Signed 04-Apr-2018 17:36)Authored: Service, Subjective Data, Objective Data, Assessment and Plan,Signature/Cosignature/Att estation Last Updated: 04-Apr-2018 17:36 by Alexandra Milligan (PAC) Normal [facility] Daily Progress Note-Endocrin ologyon 04-04-2018 Protein mass conc Consult Type: subseq uent visit/care Service: Endocrinology Subjective Data:DON ELKINS is a 67 year old Male who is Hospital Day # 18 and POD #4 for CABGx 3;-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 denies any nausea, vomiting and diarrhea. Objective Data: Objective Information: ---- Intake and Output -----Mn/Dy/Year TimeIntakeOutputNovant Health, [facility] 2017 6:00 [id number] 2017 10:00 [id number] 2017 2:00 [id number] The Intake and Output Totals for the last 24 hours are:[id number] TRAQGuG4Muatf07.01665341/7693% Date/Time04/04 7: 7: 7: 7: 7:24Range(36.1C - 36.8C ) (67 - 75 ) (16 - 22 ) (117 - 152 )/ (51 - 76 ) (93%- 97% ) As of 04-Apr-2018 04:41:00, patient is on 2 L/min of oxygen via nasal cannula. Physical Exam: Constitutional: obese, sitting in chair, no acute distressCardiovascular: surgical scar healing wellGastrointestinal: Nondistended, soft, non-tender, no rebound tenderness orguarding, no masses palpable, no organomegaly, +BS, no bruitsExtremities: normal extremities, no cyanosis edema, contusions or wounds, noclubbingNeurological: no focal deficits Medication: Medications: CARDIOVASCULAR AGENTS: 1. Metoprolol Tartrate: 50 mg Oral Every 8 Hours2. Furosemide Injectable: 20 mg IntraVenous Push Daily3. hydrALAZINE: 25 mg Oral Every 8 Hours CENTRAL NERVOUS SYSTEM AGENTS: 1. Aspirin Enteric Coated: 81 mg Oral Daily2. oxyCODONE Immediate Release: 5 mg Oral Every 4 Hours PRN3. oxyCODONE Immediate Release: 10 mg Oral Every 4 Hours PRN4. Ondansetron Injectable: 4 mg IntraVenous Push Every 6 Hours PRN5. rOPINIRole (REQUIP XL) Extended Release: 8 mg Oral Daily COAGULATION MODIFIERS: 1. Heparin 25,000 units/ D5W 250 mL Infusion..: 2000 units/hr IntraVenous 2. Warfarin: 5 mg Oral Daily GASTROINTESTINAL AGENTS: 1. Bisacodyl Rectal: 10 mg Rectal Daily PRN2. Docusate: 100 mg Oral 2 Times a Day3. Polyethylene Glycol: 17 gram(s) Oral 3 Times a Day4. Pantoprazole: 40 mg Oral Daily HORMONES/HORMONE MODIFIERS: 1. Hydrocortisone: 20 mg Oral 2. Hydrocortisone: 10 mg Oral 3. Levothyroxine: 150 microgram(s) Oral Daily METABOLIC AGENTS: 1. Insulin Glargine (Lantus) Injectable: 20 unit(s) SubCutaneous At Bedtime 2. Insulin Lispro (HumaLOG) Injectable: 6 unit(s) SubCutaneous 3 Times aDay Before Meals3. Insulin Lispro Mild Corrective Scale: unit(s) SubCutaneous 3 Times a DayBefore Meals4. Atorvastatin: 40 mg Oral Daily5. Dextrose 50% in Water Injectable: 25 gram(s) IntraVenous Push Every 15Minutes PRN6. Glucagon Injectable: 1 mg IntraMuscular Every 15 Minutes PRN NUTRITIONAL PRODUCTS: 1. Iron Polysaccharide Complex: 150 mg Oral Daily2. Multivitamin with Minerals: 1 tablet(s) Oral Daily PSYCHOTHERAPEUTIC AGENTS: 1. Citalopram (CELEXA): 20 mg Oral Daily TOPICAL AGENTS: 1. Lidocaine 5% TransDermal: 1 patch TransDermal Every 24 Hours Recent Lab Results: Results: I have reviewed these laboratory results: Glucose_POCT Trending View [id number] 07:30:00 03-Apr-2018 22:08:00 03-Apr-2018 18:12:00 03-Apr-2018 11:22:00Glucose-PTCA206 H 192 H 294 H 151 H Complete Blood Count + Differential 04-Apr-2018 02:57:00 ResultValueWhite Blood Cell Count 9.3Nucleated Erythrocyte Count 0.0Red Blood Cell Count 2.93 LHGB 9.0 LHCT 26.6 LMCV 91MCHC 33.8PLT 173RDW-CV 12.6Neutrophil % 62.2Immature Granulocytes % 0.9Lymphocyte % 21.0Monocyte % 9.1Eosinophil % 6.0Basophil % 0.8Neutrophil Count 5.81Lymphocyte Count 1.96Monocyte Count 0.85Eosinophil Count 0.56Basophil Count 0.07 Renal Function Panel Trending View [id number] 02:57:00 03-Apr-2018 21:03:00Glucose, Jvnqn604 H 198 FBB252 L 132 LK3.8 4.3CL97 L 97 LBicarbonate, Serum27 26Anion Gap, Serum13 73FKF32 H 27 HCREAT1.24 1.30GFR-Non Xlmfojhz11 A 55 AGFR- Gyhjytrn84 67Calcium, Serum8.3 L 8.3 LPhosphorus, Serum2.9 2.7ALB3.2 L 3.2 L Magnesium, Serum 04-Apr-2018 02:57:00 ResultValueMagnesium, Serum 1.88 Complete Blood Count 03-Apr-2018 21:03:00 ResultValueWhite Blood Cell Count 9.9Nucleated Erythrocyte Count 0.0Red Blood Cell Count 2.89 LHGB 9.0 LHCT 26.8 LMCV 93MCHC 33.6PLT 168RDW-CV 12.4 Assessment and Plan:Assessment: Mr. Elkins is a 67 yo WM with no known history of CAD, who has a past medicalhistory of HTN, HLD, T2DM, [facility]'s disease, hypothyroidism, COPD, AKASH onCPAP, prostate ca s/p prostatectomy in 2011, and psoriasis who was [facility] from [facility] on 03/18 David marshall.Endocrine consulted fr evaluation of [facility] disease and treatment periop Patient was on supra-therapeutic dose of HCT 20-0-20 , fludrocortisone 0.1 ,mgdailyPatient has uncontrolled HTN and uncontrolled BSIVC filter placed on abg 03/31 1. [facility] Disease- HC taper as below04/04- make HCt PO 20 mg @ 8 am - 10 mg @ noon - 10 mg @ 5 pm04/06- make HCt PO 15 mg @ 8 am - 10 mg @ noon - 5 mg @ 5pm106/08-until follow up; make HCt PO 10 mg @ 8 am - 5 mg @ noon - 2.5 mg @ 5pm -please resume Fludrocortisone 0.05 mg 4 times weekly ( and Friday) on 04/06 2. R3PI-aytkpaen Glargine 20 units QHS and Lispro 6 TIDAC-ISS correction 2 units per 50 >150 Will sign off, page or call with questionsAbove was communicated to primary team Patient was seen, examined and discussed with Domingo Signature/Cosignature/Attestat ion:Attending AttestationI saw and evaluated the patient. I personally obtainedthe judge and critical portions of the history and physical exam or wasphysically present for judge and critical portions performed by theresident/fellow. I reviewed the resident/fellows documentation and discussedthe patient with the resident/fellow. I agree with the resident/fellowsmedical decision making as documented in the residents note.I personally evaluated the patient (as noted in the above attestation) [id number] Electronic Signatures:Shanda Rose (Fellow)) (Signed 04-Apr-2018 13:07)Authored: Service, Subjective Data, Objective Data, Assessment and Plan,Signature/Cosignature/Att Leighton Kirkland) (Signed 06-Apr-2018 12:54)Authored: Signature/Cosignature/Attestat ionCo-Signer: Service, Subjective Data, Objective Data Last Updated: 19-Nov-2018 12:[address]) Normal [facility] GLUCOSE-POCTon 04-04-2018 Glucose mass conc 204 mg/dL High 74 - 99 [facility] Comment on above: Performed By: #### C BC ####[id number] [place] [address] Glucose mass conc 248 mg/dL High 74 - 99 [facility] Comment on above: Performed By: #### C BC ####[id number] [place] [address] Glucose mass conc 207 mg/dL High 74 - 99 [facility] Comment on above: Performed By: #### C BC ####[id number] [place] [address] Glucose mass conc 192 mg/dL High 74 - 99 [facility] Comment on above: Performed By: #### E MRAD ####NO LOCATION NEEDED HEPARIN ASSAY,UFHon 04-04-20 18 HEPARIN ASSAY,UFH 0.5 IU/mL Normal [facility] Comment on above: Result Comment: The therapeutic reference range for UFH may be either 0.3-0.6 IU/mL or 0.3-0.7 IU/mL based on the clinical setting for anticoagulant therapy and the associated nomogram used. For heparin dosing guidelines based on clinical scenario and Heparin Assay results, please refer to local Pharmacy and [facility] Guidelines for Anticoagulation therapy available on the [facility] intranet at:[email or web address] Performed By: #### C BC ####[id number] [place] [address] HEPARIN ASSAY,UFH 0.5 IU/mL Normal [facility] Comment on above: Result Comment: The therapeutic reference range for UFH may be either 0.3-0.6 IU/mL or 0.3-0.7 IU/mL based on the clinical setting for anticoagulant therapy and the associated nomogram used. For heparin dosing guidelines based on clinical scenario and Heparin Assay results, please refer to local Pharmacy and the [facility] Guidelines for Anticoagulation therapy available on the [facility] intranet at:[email or web address]_[email or web address].aspx Performed By: #### E MRAD ####NO LOCATION NEEDED MAGNESIUMon 04-04-2018 Magnesium mass conc 1.88 mg/dL Normal 1.60 - 2.40 [facility] Comment on above: Performed By: #### C BC ####[id number] [place] [address] RENAL FUNCTION PANELon 04-04 Albumin mass conc Canceled Normal [facility] Comment on above: Order Comment: TEST RENAL FUNCTION PANEL WAS CANCELLED, 04/04/2018 18:30 ?Cancel Reason:Cancelled. Performed By: #### C BC ####[id number] [place] [address] Anion gap 3 molar conc Canceled Normal [facility] Comment on above: Order Comment: TEST RENAL FUNCTION PANEL WAS CANCELLED, 04/04/2018 18:30 ?Cancel Reason:Cancelled. Performed By: #### C BC ####[id number] [place] [address] Calcium mass conc Canceled Normal [facility] Comment on above: Order Comment: TEST RENAL FUNCTION PANEL WAS CANCELLED, 04/04/2018 18:30 ?Cancel Reason:Cancelled. Performed By: #### C BC ####[id number] [place] [address] Chloride molar conc Canceled Normal [facility] Comment on above: Order Comment: TEST RENAL FUNCTION PANEL WAS CANCELLED, 04/04/2018 18:30 ?Cancel Reason:Cancelled. Performed By: #### C BC ####[id number] [place] [address] Creatinine mass conc Canceled Normal [facility] Comment on above: Order Comment: TEST RENAL FUNCTION PANEL WAS CANCELLED, 04/04/2018 18:30 ?Cancel Reason:Cancelled. Performed By: #### C BC ####[id number] [place] [address] GFR- AM. Canceled Normal [facility] Comment on above: Order Comment: TEST RENAL FUNCTION PANEL WAS CANCELLED, 04/04/2018 18:30 ?Cancel Reason:Cancelled. Result Comment: CALC ULATIONS OF ESTIMATED GFR ARE PERFORMED USING THE MDRD STUDY EQUATION FOR THE IDMS-TRACEABLE CREATININE METHODS. CLIN CHEM 2007;53:766-72 Performed By: #### C BC ####[id number] [place] [address] GFR-NON AM. Canceled Normal [facility] Comment on above: Order Comment: TEST RENAL FUNCTION PANEL WAS CANCELLED, 04/04/2018 18:30 ?Cancel Reason:Cancelled. Performed By: #### C BC ####[id number] [place] [address] Glucose mass conc Canceled Normal [facility] Comment on above: Order Comment: TEST RENAL FUNCTION PANEL WAS CANCELLED, 04/04/2018 18:30 ?Cancel Reason:Cancelled. Performed By: #### C BC ####[id number] [place] [address] HCO3 molar conc (Bld) Canceled Normal [facility] Comment on above: Order Comment: TEST RENAL FUNCTION PANEL WAS CANCELLED, 04/04/2018 18:30 ?Cancel Reason:Cancelled. Performed By: #### C BC ####[id number] [place] [address] Phosphate mass conc Canceled Normal [facility] Comment on above: Order Comment: TEST RENAL FUNCTION PANEL WAS CANCELLED, 04/04/2018 18:30 ?Cancel Reason:Cancelled. Result Comment: The performance characteristics of phosphorus testing in heparinized plasma have been validated by the individual laboratory site where testing is performed. Testing on heparinized plasma is not approved by the FDA; however, such approval is not necessary. Performed By: #### C BC ####[id number] [place] [address] Potassium molar conc Canceled Normal [facility] Comment on above: Order Comment: TEST RENAL FUNCTION PANEL WAS CANCELLED, 04/04/2018 18:30 ?Cancel Reason:Cancelled. Performed By: #### C BC ####[id number] [place] [address] Sodium molar conc Canceled Normal [facility] Comment on above: Order Comment: TEST RENAL FUNCTION PANEL WAS CANCELLED, 04/04/2018 18:30 ?Cancel Reason:Cancelled. Performed By: #### C BC ####[id number] [place] [address] Urea nitrogen mass conc Canceled Normal [facility] Comment on above: Order Comment: TEST RENAL FUNCTION PANEL WAS CANCELLED, 04/04/2018 18:30 ?Cancel Reason:Cancelled. Performed By: #### C BC ####[id number] [id number] Albumin mass conc 3.2 g/dL Low 3.4 - 5.0 [facility] Comment on above: Performed By: #### C BC ####[id number] [place] [address] Anion gap 3 molar conc 13 mmol/L Normal 10 - 20 [facility] Comment on above: Performed By: #### C BC ####[id number] [place] [address] Calcium mass conc 8.3 mg/dL Low 8.6 - 10.6 [facility] Comment on above: Performed By: #### C BC ####[id number] [place] [address] Chloride molar conc 97 mmol/L Low 98 - 107 [facility] Comment on above: Performed By: #### C BC ####[id number] [place] [address] Creatinine mass conc 1.24 mg/dL Normal 0.50 - 1.30 [facility] Comment on above: Performed By: #### C BC ####[id number] [place] [address] GFR- AM. 70 mL/min/1.73m2 Normal >60 [facility] Comment on above: Result Comment: CALC ULATIONS OF ESTIMATED GFR ARE PERFORMED USING THE MDRD STUDY EQUATION FOR THE IDMS-TRACEABLE CREATININE METHODS. CLIN CHEM 2007;53:766-72 Performed By: #### C BC ####[id number] [place] [address] GFR-NON AM. 58 mL/min/1.73m2 Abnormal >60 [facility] Comment on above: Performed By: #### C BC ####[id number] [place] [address] Glucose mass conc 131 mg/dL High 74 - 99 [facility] Comment on above: Performed By: #### C BC ####[id number] [place] [address] HCO3 molar conc (Bld) 27 mmol/L Normal 21 - 32 [facility] Comment on above: Performed By: #### C BC ####[id number] [place] [address] Phosphate mass conc 2.9 mg/dL Normal 2.5 - 4.9 [facility] Comment on above: Result Comment: The performance characteristics of phosphorus testing in heparinized plasma have been validated by the individual laboratory site where testing is performed. Testing on heparinized plasma is not approved by the FDA; however, such approval is not necessary. Performed By: #### C BC ####[id number] [place] [address] Potassium molar conc 3.8 mmol/L Normal 3.5 - 5.3 [facility] Comment on above: Performed By: #### C BC ####[id number] [place] [address] Sodium molar conc 133 mmol/L Low 136 - 145 [facility] Comment on above: Performed By: #### C BC ####[id number] [place] [address] Urea nitrogen mass conc 26 mg/dL High 6 - 23 [facility] Comment on above: Performed By: #### C BC ####[id number] [place] [address] Albumin mass conc 3.2 g/dL Low 3.4 - 5.0 [facility] Comment on above: Performed By: #### E MRAD ####NO LOCATION NEEDED Anion gap 3 molar conc 13 mmol/L Normal 10 - 20 [facility] Comment on above: Performed By: #### E MRAD ####NO LOCATION NEEDED Calcium mass conc 8.3 mg/dL Low 8.6 - 10.6 [facility] Comment on above: Performed By: #### E MRAD ####NO LOCATION NEEDED Chloride molar conc 97 mmol/L Low 98 - 107 [facility] Comment on above: Performed By: #### E MRAD ####NO LOCATION NEEDED Creatinine mass conc 1.30 mg/dL Normal 0.50 - 1.30 [facility] Comment on above: Performed By: #### E MRAD ####NO LOCATION NEEDED GFR- AM. 67 mL/min/1.73m2 Normal >60 [facility] Comment on above: Result Comment: CALC ULATIONS OF ESTIMATED GFR ARE PERFORMED USING THE MDRD STUDY EQUATION FOR THE IDMS-TRACEABLE CREATININE METHODS. CLIN CHEM 2007;53:766-72 Performed By: #### E MRAD ####NO LOCATION NEEDED GFR-NON AM. 55 mL/min/1.73m2 Abnormal >60 [facility] Comment on above: Performed By: #### E MRAD ####NO LOCATION NEEDED Glucose mass conc 198 mg/dL High 74 - 99 [facility] Comment on above: Performed By: #### E MRAD ####NO LOCATION NEEDED HCO3 molar conc (Bld) 26 mmol/L Normal 21 - 32 [facility] Comment on above: Performed By: #### E MRAD ####NO LOCATION NEEDED Phosphate mass conc 2.7 mg/dL Normal 2.5 - 4.9 [facility] Comment on above: Result Comment: The performance characteristics of phosphorus testing in heparinized plasma have been validated by the individual laboratory site where testing is performed. Testing on heparinized plasma is not approved by the FDA; however, such approval is not necessary. Performed By: #### E MRAD ####NO LOCATION NEEDED Potassium molar conc 4.3 mmol/L Normal 3.5 - 5.3 [facility] Comment on above: Performed By: #### E MRAD ####NO LOCATION NEEDED Sodium molar conc 132 mmol/L Low 136 - 145 [facility] Comment on above: Performed By: #### E MRAD ####NO LOCATION NEEDED Urea nitrogen mass conc 27 mg/dL High 6 - 23 [facility] Comment on above: Performed By: #### E MRAD ####NO LOCATION NEEDED TH CHEST 2 VIEW PA AND LATon 04-04-2018 TH CHEST 2 VIEW PA AND LAT Name: DON ELKINS STUDY:CHEST 2 VIEW PA AND LAT; 04/04/2018 6:45 am INDICATION:Signs/Symptoms: postop cardiac surgery. COMPARISON:Chest radiograph from 04/03/2018 ORDERING CLINICIAN:MARY MUNROE FINDINGS:Status post median sternotomy. The cardiomediastinal silhouette is persistently enlarged andunchanged from prior. Trace right apical pneumothorax, stable to slightly improved fromprior. Better inspiratory effort on present examination. No frankpulmonary edema. Bandlike left basilar retrocardiac atelectasis.Trace bibasilar pleural effusions, better seen on lateral projection. No acute osseous abnormality. IMPRESSION:1. Trace right apical pneumothorax, stable to slightly improved fromprior.2. Stable enlargement of cardiomediastinal silhouette similarbibasilar atelectasis and trace pleural effusions, better seen onlateral projection. Electronically signed by: STANISLAV RADFORD MD Normal [facility] CBCon 04-03-2018 Erythrocyte distribution width Auto Ratio (RBC) 13.0 % Normal 11.5 - 14.5 [facility] Comment on above: Performed By: #### E MRAD ####NO LOCATION NEEDED Hematocrit Auto Volume Fraction (Bld) 28.5 % Low 41.0 - 52.0 [facility] Comment on above: Performed By: #### E MRAD ####NO LOCATION NEEDED Hemoglobin mass conc (Bld) 9.6 g/dL Low 13.5 - 17.5 [facility] Comment on above: Performed By: #### E MRAD ####NO LOCATION NEEDED MCHC Auto mass conc (RBC) 33.7 g/dL Normal 32.0 - 36.0 [facility] Comment on above: Performed By: #### E MRAD ####NO LOCATION NEEDED MCV Auto Entitic volume (RBC) 93 fL Normal 80 - 100 [facility] Comment on above: Performed By: #### E MRAD ####NO LOCATION NEEDED Nucleated RBC/100 WBC Ratio (Bld) 0.0 /100 WBC Normal 0.0-0.0 [facility] Comment on above: Performed By: #### E MRAD ####NO LOCATION NEEDED Platelets Auto #/vol (Bld) 130 10*3/uL Low 150 - 450 [facility] Comment on above: Performed By: #### E MRAD ####NO LOCATION NEEDED RBC Auto #/vol (Bld) 3.08 x10E12/L Low 4.50 - 5.90 [facility] Comment on above: Performed By: #### E MRAD ####NO LOCATION NEEDED WBC Auto #/vol (Bld) 10.9 10*3/uL Normal 4.4 - 11.3 [facility] Comment on above: Performed By: #### E MRAD ####NO LOCATION NEEDED CBC AND DIFFERENTIALon 04-03 % AUTOMATED IMMATURE GRAN 0.6 % Normal 0.0 - 0.9 [facility] Comment on above: Result Comment: Perc ent differential counts (%) should be interpreted in the context of the absolute cell counts (cells/L). Performed By: #### E MRAD ####NO LOCATION NEEDED % NEUTROPHIL 60.9 % Normal 40.0 - 80.0 [facility] Comment on above: Performed By: #### E MRAD ####NO LOCATION NEEDED Basophils/100 WBC Auto (Bld) 0.07 x10E9/L Normal 0.00 - 0.10 [facility] Comment on above: Performed By: #### E MRAD ####NO LOCATION NEEDED Basophils/100 WBC Auto (Bld) 0.7 % Normal 0.0 - 2.0 [facility] Comment on above: Performed By: #### E MRAD ####NO LOCATION NEEDED Eosinophils Auto #/vol (Bld) 0.67 10*3/uL Normal 0.00 - 0.70 [facility] Comment on above: Performed By: #### E MRAD ####NO LOCATION NEEDED Eosinophils/100 WBC Auto (Bld) 7.1 % Normal 0.0 - 6.0 [facility] Comment on above: Performed By: #### E MRAD ####NO LOCATION NEEDED Erythrocyte distribution width Auto Ratio (RBC) 12.8 % Normal 11.5 - 14.5 [facility] Comment on above: Performed By: #### E MRAD ####NO LOCATION NEEDED Hematocrit Auto Volume Fraction (Bld) 28.5 % Low 41.0 - 52.0 [facility] Comment on above: Performed By: #### E MRAD ####NO LOCATION NEEDED Hemoglobin mass conc (Bld) 9.6 g/dL Low 13.5 - 17.5 [facility] Comment on above: Performed By: #### E MRAD ####NO LOCATION NEEDED Lymphocytes Auto #/vol (Bld) 1.99 10*3/uL Normal 1.20 - 4.80 [facility] Comment on above: Performed By: #### E MRAD ####NO LOCATION NEEDED Lymphocytes/100 WBC Auto (Bld) 21.0 % Normal 13.0 - 44.0 [facility] Comment on above: Performed By: #### E MRAD ####NO LOCATION NEEDED MCHC Auto mass conc (RBC) 33.7 g/dL Normal 32.0 - 36.0 [facility] Comment on above: Performed By: #### E MRAD ####NO LOCATION NEEDED MCV Auto Entitic volume (RBC) 92 fL Normal 80 - 100 [facility] Comment on above: Performed By: #### E MRAD ####NO LOCATION NEEDED Monocytes Auto #/vol (Bld) 0.92 10*3/uL Normal 0.10 - 1.00 [facility] Comment on above: Performed By: #### E MRAD ####NO LOCATION NEEDED Monocytes/100 WBC Auto (Bld) 9.7 % Normal 2.0 - 10.0 [facility] Comment on above: Performed By: #### E MRAD ####NO LOCATION NEEDED Neutrophils Auto #/vol (Bld) 5.76 10*3/uL Normal 1.20 - 7.70 [facility] Comment on above: Performed By: #### E MRAD ####NO LOCATION NEEDED Nucleated RBC/100 WBC Ratio (Bld) 0.0 /100 WBC Normal 0.0-0.0 [facility] Comment on above: Performed By: #### E MRAD ####NO LOCATION NEEDED Platelets Auto #/vol (Bld) 144 10*3/uL Low 150 - 450 [facility] Comment on above: Performed By: #### E MRAD ####NO LOCATION NEEDED RBC Auto #/vol (Bld) 3.09 x10E12/L Low 4.50 - 5.90 [facility] Comment on above: Performed By: #### E MRAD ####NO LOCATION NEEDED WBC Auto #/vol (Bld) 9.5 10*3/uL Normal 4.4 - 11.3 [facility] Comment on above: Performed By: #### E MRAD ####NO LOCATION NEEDED Clinical Event Note-Chest tu be removalon 04-03-2018 Clinical Event Note-Chest tube removal Event:Topic: Chest tube removalDetails:Remaining 2 chest tube removed at 1540 w/o difficulty. Pt tolerated procedurewell w/o immediate evidence of complication. Urgent 1v portable CXR ordered and2v ordered for am per cardiac surgery routine. Provider / Team Contact Information:Provider/Team Contact Info-Pager Number: cardiac surgery [phone] Electronic Signatures:Mary Munroe (LOAN SERVICES PROFESSIONAL-REPLANTER) (Signed 03-Apr-2018 16:04)Authored: Event, Provider / Team Contact Information Last Updated: 03-Apr-2018 16:04 by Mary Munroe (LOAN SERVICES PROFESSIONAL-REPLANTER) Normal [facility] Daily Progress Note-Cardiac Surgeryon 04-03-2018 Protein mass conc Service: Cardiac Iris dane Subjective Data:DON ELKINS is a 67 year old Male who is Hospital Day # 17 and POD #3 for CABGx 3;-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 Overnight Events: Patient had an uneventful night.Additional Information:Transferred out of CTICU yesterday Objective Data: Objective Information: ---- Intake and Output -----Mn/Dy/Year TimeIntakeOutputNetNov 2017 6:00 [id number] 2017 10:00 [id number] 2017 2:00 [id number] The Intake and Output Totals for the last 24 hours are:[id number] Intake Output Enteral - Oral 820 mL Urine 1180 mL IV Fluids 55 mL Chest Tubes 170 mL T [id number]/6892% Date/Time04/03 6: 6: 6: 6: 6:52Range(36C - 37.2C ) (69 - 86 ) (16 - 20 ) (108 - 134 )/ (66 - 75 ) (91% -95% ) As of 03-Apr-2018 04:00:00, patient is on 2% oxygen via nasal cannula.Highest temp of 37.2 C was recorded at 04/03 6:52 Riyowzh99/16 6:00: Weight in kg (Weight (kg)) 109.8106/03 6:00: Weight in lbs ((lbs)) 242.2 Physical Exam: Constitutional: lying in bed; NADEyes: sclera clearENMT: mucous membranes moistHead/Neck: neck suppleRespiratory/Thorax: nonlabored; fair inspir effort and cough; occas loosesounding cough; mildly diminished basessternum stableCTs x 2 to -20 wall suction; no air leak; serosang drngCardiovascular: RRR; TELE - SR 70s; 04/02 8 beat NSVT notedwires to temp pacer A60, no pacing notedGastrointestinal: obese; soft; NT/ND; BS+; BM 04/02Genitourinary: voiding per urinal; no dysuriaMusculoskeletal: MAEExtremities: trace BLE edema; well perfusedNeurological: awake; A&Ox4; no focal defPsychological: Appropriate mood and behaviorSkin: warm and dryINCISIONS: midsternal, leg SUBMARINE DIVER, well approx, w/o s/s infection Medication: Medications: Scheduled Medications --1. Aspirin Enteric Coated: 81 mg Oral Daily2. Atorvastatin: 40 mg Oral Daily3. Citalopram (CELEXA): 20 mg Oral Daily4. Docusate: 100 mg Oral 2 Times a Day5. Heparin SubCutaneous: 5000 unit(s) SubCutaneous Every 8 Hours6. hydrALAZINE: 25 mg Oral Every 8 Hours7. Hydrocortisone: 20 mg Oral 8. Hydrocortisone: 10 mg Oral Once9. Insulin Glargine (Lantus) Injectable: 20 unit(s) SubCutaneous At Bedtime 10. Insulin Lispro (HumaLOG) Injectable: 6 unit(s) SubCutaneous 3 Times aDay Before Meals11. Insulin Lispro Mild Corrective Scale: unit(s) SubCutaneous 3 Times a DayBefore Meals12. Iron Polysaccharide Complex: 150 mg Oral Daily13. Levothyroxine: 150 microgram(s) Oral Daily14. Lidocaine 5% TransDermal: 1 patch TransDermal Every 24 Hours15. Metoprolol Tartrate: 50 mg Oral Every 8 Hours16. Multivitamin with Minerals: 1 tablet(s) Oral Daily17. Pantoprazole: 40 mg Oral Daily18. Polyethylene Glycol: 17 gram(s) Oral 3 Times a Day19. rOPINIRole (REQUIP XL) Extended Release: 8 mg Oral Daily20. Warfarin: 5 mg Oral Daily PRN Medications --1. Bisacodyl Rectal: 10 mg Rectal Daily2. Dextrose 50% in Water Injectable: 25 gram(s) IntraVenous Push Every 66Lrdkgll7. Glucagon Injectable: 1 mg IntraMuscular Every 15 Minutes4. Ondansetron Injectable: 4 mg IntraVenous Push Every 6 Hours5. oxyCODONE Immediate Release: 5 mg Oral Every 4 Hours6. oxyCODONE Immediate Release: 10 mg Oral Every 4 Hours Currently Suspended Medications --1. Lisinopril: 20 mg Oral Every Night Recent Lab Results: Results:I have reviewed these laboratory results: Complete Blood Count + Differential 03-Apr-2018 06:57:00 ResultValueWhite Blood Cell Count 9.5Nucleated Erythrocyte Count 0.0Red Blood Cell Count 3.09 LHGB 9.6 LHCT 28.5 LMCV 92MCHC 33.7PLT 144 LRDW-CV 12.8Neutrophil % 60.9Immature Granulocytes % 0.6Lymphocyte % 21.0Monocyte % 9.7Eosinophil % 7.1Basophil % 0.7Neutrophil Count 5.76Lymphocyte Count 1.99Monocyte Count 0.92Eosinophil Count 0.67Basophil Count 0.07 Renal Function Panel 03-Apr-2018 06:57:00 ResultValueGlucose, Serum 125 HNA 133 LK 3.9CL 95 LBicarbonate, Serum 28Anion Gap, Serum 14BUN 25 HCREAT 1.32 HGFR-Non 54 AGFR- 65Calcium, Serum 8.5 LPhosphorus, Serum 3.1ALB 3.4 PT + INR, Plasma 03-Apr-2018 06:57:00 ResultValueProthrombin Time, Plasma 13.7 HInternational Normalized Ratio, Plasma 1.2 H Magnesium, Serum 03-Apr-2018 06:57:00 ResultValueMagnesium, Serum 1.94 Glucose_POCT Trending View [id number] 21:05:00 02-Apr-2018 17:14:00 02-Apr-2018 11:05:00 02-Apr-2018 07:21:00 02-Apr-2018 03:09:00Glucose-AOGV815 H 137 H 310 H 223 H 199 H Radiology Results: Results:I have reviewed this radiology result: Impression:1. Small right apical pneumothorax, slightly increased in size from the priorstudy. Continued attention on follow-up imaging is recommended.2. Stable enlargement of the cardiomediastinal silhouette without frankpulmonary edema.3. Mild bibasilar atelectasis with stable appearance of left basilar andretrocardiac opacity, which may be secondary to a small left-sided pleuraleffusion with associated atelectasis. However, superimposed consolidationcannot be fully excluded. Xray Chest 1 View [Apr 03 2018 10:33AM] Assessment and Plan:Assessment:67 yo WM with no prior history of CAD, who has a past medical history of HTN,HLD, T2DM, Brigida's disease, hypothyroidism, COPD, AKASH on CPAP, prostate Spring/p prostatectomy in 2011, and psoriasis [facility] for CABG eval. [place] and dyspnea. He as found to havebilat PEs, was started on Heparin gtt, and transferred to [facility]. He wasfound to have a troponin leak at 2.25. Cardiology was consulted and the patientwas diagnosed with ACS, NSTEMI. He underwent a TTE and cath. He had normal EF,mild AI, and triple vessel CAD so was transferred to [facility] for CABG eval.Pulm consulted for PE workup. 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 03/23/2018 OPERATION/PROCEDURE: by Severiano Gonzalezerior vena cava filter. 03/31/18 OPERATION/PROCEDURE: by Dr. Hernandez x 3; REIS to LAD, SVG to PDA, SVG to DiagEndoscopic harvest of right saphenous vein CTICU course: HTN, endo following for DM and [facility]'s disease, insulin gtt;one CT with air leak Transferred to T3 04/02 IMPRESSION AND PLAN: POD #3 s/p CABGx3 on 03/31- increase activity/ ambulation; PT/OT- encourage IS, C/DB; respiratory therapy; wean O2 as [place]- cardiac rehab referral- continue cardiac meds: asa, statin, BB- on hydralazine out of ICU; change to lauren if renal function allows- pain and anticonstipation meds- no air leak so remaining 2 CTs out 04/03- 2v CXR 04/04- remove epicardial wires prior to discharge; will need to cut ifanticoagulated- tele until discharge and optimize lytes- optimize nutrition Rhythm- SR 70s-80s- noted 8 beat NSVT 04/02 on tele review- continue BB and adjust as needed Acute postop blood loss anemia- hct 28.5- MV, 1 month iron- daily CBC Postop thrombocytopenia- plts 144 [130, 122]- daily cbc Postop Volume/Electrolyte status - preop wt 106.8 ; EF normal- wt 109.8- received 40mg oral lasix 04/02; 04/03 adding 20mg IV lasix daily for am- adjust diuresis as needed for postop cardiac surgery hypervolemia- replete electrolytes for hypokalemia/hypomagnesemia/hyp ophosphatemia asneeded - 04/03 replaced K Endo - h/o [facility]'s disease, DM, hypothyroidism- Endo is following, appreciate- hydrocortisone taper ordered as per Endo recs for Brigida's- starting fludrocortisone 4 days per week on 04/06 as per Endo recs forAddison's- adjusting DM regimen as per Endo recs- continue levothyroxine- DM diet, accuchecks, SSI Unprovoked bilat PE's preop- Pulm consult evaluated pt preop: surgery delayed as per pulm recs for heparinanticoagulation of appropriate interval; IVC filter placed 03/23- As per Dr Yu:--- Place IVC filter electively before surgery as heparin will need to beinterrupted - can retrieve fliter in 4-6 weeks if patient can take continuousanticoagulation.--- Consideration of anticoagulation beyond 6 months duration--- Would restart unfractionated heparin after cardiac surgery and transitionto DOAC if tolerated and no substantial bleeding risk from surgery. If bleedingremains a concern, reversible VKA etc may be a better choice.- 04/03 heparin gtt started once CTs removed as per Dr Gaston; will heparin bridgeto coumadin- plan f/u with Vascular surgery Dr Stapleton to arrange filter removal h/o HTN -adjust meds as needed h/o HLD- continue statin Neuro/Psych - h/o depression, RLS- continue home citalopram- continue home ropinirole Proph- DVT prophylaxis - subcu heparin; stopped 04/03 when added heparin gtt- SCD's/Darlyn walker Disp- PT evaluation - home PT- anticipate discharge early the week of 04/06- plan homebirth midwife and PT- continue to assess discharge needs Signature/Cosignature/Attestat ion:Provider/Team Contact Info-Pager Numbercardiac surgery [phone] Electronic Signatures:Mary Munroe (LOAN SERVICES PROFESSIONAL-REPLANTER) (Signed 03-Apr-2018 21:30)Authored: Service, Subjective Data, Objective Data, Assessment and Plan,Signature/Cosignature/Att estation Last Updated: 03-Apr-2018 21:30 by Mary Munroe (LOAN SERVICES PROFESSIONAL-REPLANTER) Normal [facility] Daily Progress Note-Endocrin ologyon 04-03-2018 Protein mass conc Consult Type: subseq uent visit/care Service: Endocrinology Subjective Data:DON ELKINS is a 67 year old Male who is Hospital Day # 17 and POD #3 for CABGx 3;-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 Objective Data: Objective Information: ---- Intake and Output -----Mn/Dy/Year TimeIntakeOutputNetNov 2017 2:00 [id number] 2017 6:00 [id number] 2017 10:00 [id number] The Intake and Output Totals for the last 24 hours are:[id number] T MTSHEpR3Emgts39.11890892/5194% Date/Time04/03 14: 14: 14: 14: 14:40Range(36.2C - 37.2C ) (69 - 86 ) (16 - 22 ) (108 - 152 )/ (51 - 72 ) (92%- 95% ) As of 03-Apr-2018 04:00:00, patient is on 2% oxygen via nasal cannula.Highest temp of 37.2 C was recorded at 04/03 6:52 Medication: Medications: Continuous Medications --No continuous medications are active Scheduled Medications -- 1. Aspirin Enteric Coated: 81 mg Oral Daily2. Atorvastatin: 40 mg Oral Daily3. Citalopram (CELEXA): 20 mg Oral Daily4. Docusate: 100 mg Oral 2 Times a Day5. Heparin SubCutaneous: 5000 unit(s) SubCutaneous Every 8 Hours6. hydrALAZINE: 25 mg Oral Every 8 Hours7. Hydrocortisone: 10 mg Oral Once8. Insulin Glargine (Lantus) Injectable: 20 unit(s) SubCutaneous At Bedtime 9. Insulin Lispro (HumaLOG) Injectable: 6 unit(s) SubCutaneous 3 Times aDay Before Meals10. Insulin Lispro Mild Corrective Scale: unit(s) SubCutaneous 3 Times a DayBefore Meals11. Iron Polysaccharide Complex: 150 mg Oral Daily12. Levothyroxine: 150 microgram(s) Oral Daily13. Lidocaine 5% TransDermal: 1 patch TransDermal Every 24 Hours14. Metoprolol Tartrate: 50 mg Oral Every 8 Hours15. Multivitamin with Minerals: 1 tablet(s) Oral Daily16. Pantoprazole: 40 mg Oral Daily17. Polyethylene Glycol: 17 gram(s) Oral 3 Times a Day18. rOPINIRole (REQUIP XL) Extended Release: 8 mg Oral Daily19. Warfarin: 5 mg Oral Daily PRN Medications -- 1. Bisacodyl Rectal: 10 mg Rectal Daily2. Dextrose 50% in Water Injectable: 25 gram(s) IntraVenous Push Every 63Whafiff1. Glucagon Injectable: 1 mg IntraMuscular Every 15 Minutes4. Ondansetron Injectable: 4 mg IntraVenous Push Every 6 Hours5. oxyCODONE Immediate Release: 5 mg Oral Every 4 Hours6. oxyCODONE Immediate Release: 10 mg Oral Every 4 Hours Currently Suspended Medications -- 1. Lisinopril: 20 mg Oral Every Night Recent Lab Results: Results: I have reviewed these laboratory results: Glucose_POCT Trending View [id number] 11:22:00 02-Apr-2018 21:05:00 02-Apr-2018 17:14:00 02-Apr-2018 11:05:00 02-Apr-2018 07:21:00Glucose-TZMK300 H 200 H 137 H 310 H 223 H Renal Function Panel 03-Apr-2018 06:57:00 ResultValueGlucose, Serum 125 HNA 133 LK 3.9CL 95 LBicarbonate, Serum 28Anion Gap, Serum 14BUN 25 HCREAT 1.32 HGFR-Non 54 AGFR- 65Calcium, Serum 8.5 LPhosphorus, Serum 3.1ALB 3.4 Assessment and Plan:Assessment: Mr. Elkins is a 67 yo WM with no known history of CAD, who has a past medicalhistory of HTN, HLD, T2DM, [facility]'s disease, hypothyroidism, COPD, AKASH onCPAP, prostate ca s/p prostatectomy in 2011, and psoriasis who was transferredto [facility] service at [facility] from [facility] on 03/18 forCABG eval.Endocrine consulted fr evaluation of [facility] disease and treatment periop Patient was on supra-therapeutic dose of HCT 20-0-20 , fludrocortisone 0.1 ,mgdailyPatient has uncontrolled HTN and uncontrolled BSIVC filter placed on abg 03/31 1. [facility] Disease- HC taper as belowon 04/03 please make HCt PO 20 mg @ 8 am - 20 mg @ noon - 10 mg @ 5 pmthen on 04/04- make HCt PO 20 mg @ 8 am - 10 mg @ noon - 10 mg @ 5 pmthen on 04/06- make HCt PO 15 mg @ 8 am - 10 mg @ noon - 5 mg @ 5pmthen on 04/08- make HCt PO 10 mg @ 8 am - 5 mg @ noon - 2.5 mg @ 5pm- please resume Fludrocortisone 0.05 mg 4 times weekly ( and Friday) on04/06 2. B2PS--zmgkfywa Glargine today as : 20 units QHS and Lispro 6 TIDAC-ISS correction to 2 units per 50 >150--Will follow Please page with questions [phone] Patient seen and examined, plan discussed with Dr Geller Electronic Signatures:Bryon Sandoval (Fellow)) (Signed 03-Apr-2018 14:47)Authored: Service, Subjective Data, Objective Data, Assessment and Plan,Signature/Cosignature/Att Rose Mary Cunningham) (Signed 03-Apr-2018 18:05)Authored: Signature/Cosignature/Attestat ionCo-Signer: Service, Subjective Data, Objective Data, Assessment and Plan,Signature/Cosignature/Att estation Last Updated: 03-Apr-2018 18:05 by Rose Mary Burrell) Normal [facility] GLUCOSE-POCTon 04-03-2018 Glucose mass conc 294 mg/dL High 74 - 99 [facility] Comment on above: Performed By: #### E MRAD ####NO LOCATION NEEDED Glucose mass conc 151 mg/dL High 74 - 99 [facility] Comment on above: Performed By: #### E MRAD ####NO LOCATION NEEDED MAGNESIUMon 04-03-2018 Magnesium mass conc 1.94 mg/dL Normal 1.60 - 2.40 [facility] Comment on above: Performed By: #### E MRAD ####NO LOCATION NEEDED PT/INRon 04-03-2018 INR Coag RelTime (PPP) 1.2 {INR} High 0.9 - 1.1 [facility] Comment on above: Performed By: #### E MRAD ####NO LOCATION NEEDED Prothrombin time (PT) Coag time (PPP) 13.7 s High 9.7 - 12.7 [facility] Comment on above: Result Comment: Note new reference range as of 03/10/2018. Performed By: #### E MRAD ####NO LOCATION NEEDED RENAL FUNCTION PANELon 04-03 Albumin mass conc 3.4 g/dL Normal 3.4 - 5.0 [facility] Comment on above: Performed By: #### E MRAD ####NO LOCATION NEEDED Anion gap 3 molar conc 14 mmol/L Normal 10 - 20 [facility] Comment on above: Performed By: #### E MRAD ####NO LOCATION NEEDED Calcium mass conc 8.5 mg/dL Low 8.6 - 10.6 [facility] Comment on above: Performed By: #### E MRAD ####NO LOCATION NEEDED Chloride molar conc 95 mmol/L Low 98 - 107 [facility] Comment on above: Performed By: #### E MRAD ####NO LOCATION NEEDED Creatinine mass conc 1.32 mg/dL High 0.50 - 1.30 [facility] Comment on above: Performed By: #### E MRAD ####NO LOCATION NEEDED GFR- AM. 65 mL/min/1.73m2 Normal >60 [facility] Comment on above: Result Comment: CALC ULATIONS OF ESTIMATED GFR ARE PERFORMED USING THE MDRD STUDY EQUATION FOR THE IDMS-TRACEABLE CREATININE METHODS. CLIN CHEM 2007;53:766-72 Performed By: #### E MRAD ####NO LOCATION NEEDED GFR-NON AM. 54 mL/min/1.73m2 Abnormal >60 [facility] Comment on above: Performed By: #### E MRAD ####NO LOCATION NEEDED Glucose mass conc 125 mg/dL High 74 - 99 [facility] Comment on above: Performed By: #### E MRAD ####NO LOCATION NEEDED HCO3 molar conc (Bld) 28 mmol/L Normal 21 - 32 [facility] Comment on above: Performed By: #### E MRAD ####NO LOCATION NEEDED Phosphate mass conc 3.1 mg/dL Normal 2.5 - 4.9 [facility] Comment on above: Result Comment: The performance characteristics of phosphorus testing in heparinized plasma have been validated by the individual laboratory site where testing is performed. Testing on heparinized plasma is not approved by the FDA; however, such approval is not necessary. Performed By: #### E MRAD ####NO LOCATION NEEDED Potassium molar conc 3.9 mmol/L Normal 3.5 - 5.3 [facility] Comment on above: Performed By: #### E MRAD ####NO LOCATION NEEDED Sodium molar conc 133 mmol/L Low 136 - 145 [facility] Comment on above: Performed By: #### E MRAD ####NO LOCATION NEEDED Urea nitrogen mass conc 25 mg/dL High 6 - 23 [facility] Comment on above: Performed By: #### E MRAD ####NO LOCATION NEEDED Albumin mass conc 3.5 g/dL Normal 3.4 - 5.0 [facility] Comment on above: Performed By: #### E MRAD ####NO LOCATION NEEDED Anion gap 3 molar conc 13 mmol/L Normal 10 - 20 [facility] Comment on above: Performed By: #### E MRAD ####NO LOCATION NEEDED Calcium mass conc 8.6 mg/dL Normal 8.6 - 10.6 [facility] Comment on above: Performed By: #### E MRAD ####NO LOCATION NEEDED Chloride molar conc 94 mmol/L Low 98 - 107 [facility] Comment on above: Performed By: #### E MRAD ####NO LOCATION NEEDED Creatinine mass conc 1.37 mg/dL High 0.50 - 1.30 [facility] Comment on above: Performed By: #### E MRAD ####NO LOCATION NEEDED GFR- AM. 63 mL/min/1.73m2 Normal >60 [facility] Comment on above: Result Comment: CALC ULATIONS OF ESTIMATED GFR ARE PERFORMED USING THE MDRD STUDY EQUATION FOR THE IDMS-TRACEABLE CREATININE METHODS. CLIN CHEM 2007;53:766-72 Performed By: #### E MRAD ####NO LOCATION NEEDED GFR-NON AM. 52 mL/min/1.73m2 Abnormal >60 [facility] Comment on above: Performed By: #### E MRAD ####NO LOCATION NEEDED Glucose mass conc 163 mg/dL High 74 - 99 [facility] Comment on above: Performed By: #### E MRAD ####NO LOCATION NEEDED HCO3 molar conc (Bld) 28 mmol/L Normal 21 - 32 [facility] Comment on above: Performed By: #### E MRAD ####NO LOCATION NEEDED Phosphate mass conc 3.0 mg/dL Normal 2.5 - 4.9 [facility] Comment on above: Result Comment: The performance characteristics of phosphorus testing in heparinized plasma have been validated by the individual laboratory site where testing is performed. Testing on heparinized plasma is not approved by the FDA; however, such approval is not necessary. Performed By: #### E MRAD ####NO LOCATION NEEDED Potassium molar conc 4.2 mmol/L Normal 3.5 - 5.3 [facility] Comment on above: Performed By: #### E MRAD ####NO LOCATION NEEDED Sodium molar conc 131 mmol/L Low 136 - 145 [facility] Comment on above: Performed By: #### E MRAD ####NO LOCATION NEEDED Urea nitrogen mass conc 24 mg/dL High 6 - 23 [facility] Comment on above: Performed By: #### E MRAD ####NO LOCATION NEEDED TH CHEST 1 VIEWon 04-03-2018 TH CHEST 1 VIEW Name: DNO ELKINS STUDY:TH CHEST 1 VIEW; 04/03/2018 4:50 pm INDICATION:Signs/Symptoms: chest tube removal. COMPARISON:Chest radiograph dated 04/03/2018 at 5:00 a.m. ORDERING CLINICIAN:MARY MUNROE FINDINGS:Patient is status post median sternotomy. There has been intervalremoval of a mediastinal drain. CARDIOMEDIASTINAL SILHOUETTE:Cardiomediastinal silhouette is persistently enlarged, unchanged fromprior. LUNGS:Redemonstration of a small right apical pneumothorax, slightlydecreased in size compared to the prior study. Persistent low lungvolumes with bronchovascular crowding. Mild bibasilar atelectasis isagain present. There has been interval improvement in the previouslyidentified left basilar retrocardiac opacity. ABDOMEN:No remarkable upper abdominal findings. BONES:No acute osseous changes. IMPRESSION:1. Slightly decreased size of a small right apical pneumothorax.Continued attention on follow-up imaging is recommended.2. Stable enlargement of the cardiomediastinal silhouette withoutfrank pulmonary edema.3. Interval mild improvement in bandlike left basilar andretrocardiac atelectasis. Trace left pleural effusion is not excluded.I personally reviewed the images/study and I agree with the findingsas stated. This study was interpreted at [facility], [place], [place].Electronically signed by: STANISLAV RADFORD MD Normal [facility] TH CHEST 1 VIEW Name: DON ELKINS STUDY:CHEST 1 VIEW; 04/03/2018 4:58 am INDICATION:Signs/Symptoms: Postop Cardiac Surgery. COMPARISON:Chest radiograph dated 04/02/2018. ORDERING CLINICIAN:CRISTIANO WYNNE FINDINGS:The patient is status post median sternotomy. A mediastinal drain isseen, in stable position. CARDIOMEDIASTINAL SILHOUETTE:Cardiomediastinal silhouette is persistently enlarged, unchanged fromprior. LUNGS:Persistent low lung volumes with bronchovascular crowding. There ismild perihilar congestion without alejandro pulmonary edema. Mildbibasilar atelectasis is also present. A left basilar retrocardiacopacity is again seen, which may represent a small pleural effusionwith associated atelectasis. However, superimposed consolidationcannot fully be excluded. There is redemonstration of a small rightapical pneumothorax, which is slightly increased in size from theprior study. ABDOMEN:No remarkable upper abdominal findings. BONES:No acute osseous changes. IMPRESSION:1. Small right apical pneumothorax, slightly increased in size fromthe prior study. Continued attention on follow-up imaging isrecommended.2. Stable enlargement of the cardiomediastinal silhouette withoutfrank pulmonary edema.3. Mild bibasilar atelectasis with stable appearance of left basilarand retrocardiac opacity, which may be secondary to a smallleft-sided pleural effusion with associated atelectasis. However,superimposed consolidation cannot be fully excluded.I personally reviewed the images/study and I agree with the findingsas stated. This study was interpreted at [place], [place].Electronically signed by: STANISLAV RADFORD MD Normal [facility] ARTERIAL FULL PANELon 2017 Anion gap 3 molar conc 6 mmol/L Low 10 - 25 [facility] Comment on above: Performed By: #### E MRAD ####NO LOCATION NEEDED BASE EXCESS-BLOOD 4.1 mmol/L High -2.0 - 3.0 [facility] Comment on above: Performed By: #### E MRAD ####NO LOCATION NEEDED CALCIUM,IONIZED 1.13 mmol/L Normal 1.10 - 1.33 [facility] Comment on above: Performed By: #### E MRAD ####NO LOCATION NEEDED Chloride molar conc 100 mmol/L Normal 98 - 107 [facility] Comment on above: Performed By: #### E MRAD ####NO LOCATION NEEDED Glucose mass conc 182 mg/dL High 74 - 99 [facility] Comment on above: Performed By: #### E MRAD ####NO LOCATION NEEDED Hematocrit Auto Volume Fraction (Bld) 24.0 % Low 41.0 - 52.0 [facility] Comment on above: Performed By: #### E MRAD ####NO LOCATION NEEDED HGB,CALCULATED 8.2 g/dL Low 13.5 - 17.5 [facility] Comment on above: Performed By: #### E MRAD ####NO LOCATION NEEDED Lactate molar conc 1.5 mmol/L Normal 0.4 - 2.0 [facility] Comment on above: Performed By: #### E MRAD ####NO LOCATION NEEDED Oxygen ppres (BldA) 93 mm[Hg] Normal 85 - 95 [facility] Comment on above: Performed By: #### E MRAD ####NO LOCATION NEEDED PCO2 46 mmHg High 38 - 42 [facility] Comment on above: Performed By: #### E MRAD ####NO LOCATION NEEDED pH (Bld) 7.41 [pH] Normal 7.38 - 7.42 [facility] Comment on above: Performed By: #### E MRAD ####NO LOCATION NEEDED Potassium molar conc 4.1 mmol/L Normal 3.5 - 5.3 [facility] Comment on above: Performed By: #### E MRAD ####NO LOCATION NEEDED RBC Auto #/vol (Bld) 29.2 mmol/L High 22.0 - 26.0 [facility] Comment on above: Performed By: #### E MRAD ####NO LOCATION NEEDED SO2 99 % Normal 94 - 100 [facility] Comment on above: Performed By: #### E MRAD ####NO LOCATION NEEDED Sodium molar conc 131 mmol/L Low 136 - 145 [facility] Comment on above: Performed By: #### E MRAD ####NO LOCATION NEEDED CALCIUM, IONIZEDon 8 CALCIUM,IONIZED 1.11 mmol/L Normal 1.10 - 1.33 [facility] Comment on above: Result Comment: The performance characteristics of ionized calcium tested in heparinized plasma or serum have been validated by the individual laboratory site where testing is performed. Testing on heparinized plasma or serum is not approved by the FDA; however, such approval is not necessary. Performed By: #### E MRAD ####NO LOCATION NEEDED CBCon 04-02-2018 Erythrocyte distribution width Auto Ratio (RBC) 13.3 % Normal 11.5 - 14.5 [facility] Comment on above: Performed By: #### E MRAD ####NO LOCATION NEEDED Hematocrit Auto Volume Fraction (Bld) 29.1 % Low 41.0 - 52.0 [facility] Comment on above: Performed By: #### E MRAD ####NO LOCATION NEEDED Hemoglobin mass conc (Bld) 9.5 g/dL Low 13.5 - 17.5 [facility] Comment on above: Performed By: #### E MRAD ####NO LOCATION NEEDED MCHC Auto mass conc (RBC) 32.6 g/dL Normal 32.0 - 36.0 [facility] Comment on above: Performed By: #### E MRAD ####NO LOCATION NEEDED MCV Auto Entitic volume (RBC) 94 fL Normal 80 - 100 [facility] Comment on above: Performed By: #### E MRAD ####NO LOCATION NEEDED Nucleated RBC/100 WBC Ratio (Bld) 0.0 /100 WBC Normal 0.0-0.0 [facility] Comment on above: Performed By: #### E MRAD ####NO LOCATION NEEDED Platelets Auto #/vol (Bld) 122 10*3/uL Low 150 - 450 [facility] Comment on above: Performed By: #### E MRAD ####NO LOCATION NEEDED RBC Auto #/vol (Bld) 3.08 x10E12/L Low 4.50 - 5.90 [facility] Comment on above: Performed By: #### E MRAD ####NO LOCATION NEEDED WBC Auto #/vol (Bld) 10.1 10*3/uL Normal 4.4 - 11.3 [facility] Comment on above: Performed By: #### E MRAD ####NO LOCATION NEEDED COAGULATION SCREENon 018 aPTT Coag time (Bld) 28 s Normal 28 - 38 [facility] Comment on above: Result Comment: Note new reference range as of 03/10/2018. THE APTT IS NO LONGER USED FOR MONITORING UNFRACTIONATED HEPARIN THERAPY. FOR MONITORING HEPARIN THERAPY, USE THE HEPARIN ASSAY. Performed By: #### E MRAD ####NO LOCATION NEEDED INR Coag RelTime (PPP) 1.4 {INR} High 0.9 - 1.1 [facility] Comment on above: Performed By: #### E MRAD ####NO LOCATION NEEDED Prothrombin time (PT) Coag time (PPP) 15.2 s High 9.7 - 12.7 [facility] Comment on above: Result Comment: Note new reference range as of 03/10/2018. Performed By: #### E MRAD ####NO LOCATION NEEDED CORTISOL, P.M.on 04-02-2018 CORTISOL, P.M. 13.8 ug/dL High 2.5 - 10.0 [facility] Comment on above: Performed By: #### E MRAD ####NO LOCATION NEEDED Daily Progress Note - Critic al Care-SICU mary 04-02-2018 Protein mass conc Service:Critical Car e Service: ServiceSICU rodrigue Subjective Data:ID Statement:DON ELKINS is a 67 year old Male who is Hospital Day # 16 and ICU Day #3 andPOD #2 for CABG x 3;-REIS to LAD;-SVG to PDA;-SVG to Diag ;Endoscopic harvestof right saphenous vein. Lisinopril held at bedtime for controlled BP and HR. Otherwise NAEO. Patientdoing well this morning with mild pain this morning. Was able to eat half anomelette and ice cream yesterday and walk around the unit. Objective Data: Objective InformationT [id number]%Date/T 8: 7: 7: 7:00Range(36.3C - 37.2C ) (74 - 102 ) (17 - 25 ) (93% - 99% ) As of 02-Apr-2018 04:00:00, patient is on 3 L/min of oxygen via nasal cannula.Highest temp of 37.2 C was recorded at 04/01 20:00 Pain with Activity reported at 04/02 6:00: 0Pain at Rest reported at 04/02 6:00: 0 Cardiac HemodynamicsCardiac Output (L/min)5.3(5.3 - 8.6)04/01 10:00Cardiac Index (L/min/m2)2.4(2.4 - 3.9)04/01 10:00 Direct Arterial Blood PybtvcohNgpsrell299(120 - 159)04/02 7:00Diastolic (mm Hg)51(51 - 77)04/02 7:00Mean (mm Hg)73(72 - 101)04/02 7:00Pulse Pressure (mm Hg)71(66 - 94)04/02 7:58Rwpuarbi605(120 - 159)04/02 7:00Diastolic (mm Hg)51(51 - 77)04/02 7:00Mean (mm Hg)73(72 - 101)04/02 7:00Pulse Pressure (mm Hg)71(66 - 94)04/02 7:00 RNDWmrqreih82(28 - 39)04/01 11:00Diastolic (mm Hg)22(10 - 22)04/01 11:00Mean (mm Hg)9(9 - 28)04/01 11:00 ---- Intake and Output -----Mn/Dy/Year TimeIntakeOutputNetNov 2017 6:00 [id number] 2017 10:00 [id number] 2017 2:00 [id number] The Intake and Output Totals for the last 24 hours are:[id number] Drain and tube details (included in I&O totals)220 cc Chest Tube( 02-Apr-2018 06:00:00 )1410 cc Indwelling Catheter - Urethral( 02-Apr-2018 06:00:00 ) Physical Exam: Physical Exam:Neurological: Alert and oriented x3.Cardiovascular: NSR. Midsternal incision with dressing CDI. Mediastinal chesttube x 2 +airleak, draining minimal serosang. A-wires present, AAI @ 60. RightSVG site with lauren bandage intact. Pulses palpable throughout.Respiratory/Thorax: CTAB on 3L NC.Genitourinary: Her intact, draining clear yellow urine.Gastrointestinal: Abdomen soft, non-distended. Bowel sounds present.Skin: Warm and dry, no lesions, no rashesConstitutional: Laying in bed in NADEyes: PERRL, EOMI, clear scleraENMT: mucous membranes moist, no apparent injury, no lesions seenHead/Neck: AT/NCExtremities: normal extremities, no cyanosis edema, contusions or wounds, noclubbingPsychological: Mood and behavior appropriate Allergies: Allergies: No Known Allergies: Recent Lab Results: Results:CBC: 04/02/2018 02:35 \ Hgb / \ 9.5 L /WBC Plt 10.1 122 L / Hct \ / 29.1 L \ RBC: 3.08 L MCV: 94 RFP: 04/02/2018 02:35NA+ Cl- BUN / 133 L 97 L 21 / --- Glucose ---- 182 H K+ HCO3- Creat \ 4.1 27 1.21 \Calcium : 8.5 LAnion Gap : 13 Albumin : 3.5 Phos : 3.6 Coagulation: 04/02/2018 02:35PT / 15.2 H /-------< INR < 1.4 HPTT\ 28 \ Recent Arterial Blood Gas Results 04/02/2018 02:25eL157 24 h range: ( 73 - 93 )pH7.41 24 h range: ( 7.41 - 7.43 )aFI797 24 h range: ( 38 - 46 )SO299 24 h range: ( 96 - 99 )Base Excess4.1 24 h range: ( 0.9 - 4.1 )Uuexlmmougy17.2 24 h range: ( 25.2 - 29.2 ) Assessment and Plan:Daily Risk Screen: Does patient have a central lineno Does patient have an indwelling urinary catheteryes Plan for indwelling urinary catheter removal todayyes Is the patient intubatedno Other:Assessment: Assessment:67 year old with a history of CAD, HTN, HLD, DM2, Gerd, [facility]'s, andhypothyroid presents from the OR s/p CABG x 3. Plan:NEURO: Patient arrived intubated and sedated on propofol infusion. Acutepost-operative pain. H/o depression, RLS. Patient is extubated on 3L NC.-->- Continue home citalopram and ropinirole- Serial neuro and pain assessments- PO oxycodone PRN- Lidoderm patches- PT Consult, OOB to chair as tolerated- CAM ICU score qshift- Sleep/wake cycle hygiene CV: Patient has a history of CAD, HTN, HLD and is status post CABG x 3. LVfunction: normal pre-op, intra-op echo not obtained d/t patient reportingdysphagia ~1 month. Arrived to ICU on Clevidipine. Pacer set at AAI @ 60. Offcleveprex, NSR, normotensive- Continuous EKG and ABP monitoring- Volume resuscitate as clinically indicated- Continue 50 mg metoprolol TID for heartrate and BP control- Chest tubes to wall suction - mediastinal has airleak present- Holding home lisinopril- Continue ASA- Continue statin PULM: Presented to OSH with chest pain and SOB, CT of chest revealed bilaterallobar segmental and several PEs in subsegmental branches. 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 -->- Chest xray daily as indicated- Wean FiO2 maintaining SpO2 >92%.- ABGs as needed- IS q1h and OOB to chair- Home CPAP at night GI: Diabetic diet. H/o GERD. Beside swallow passed-->- Continue PPI- Diabetic diet- Colace and miralax : Baseline serum creatinine 1.4-1.6. Currently Cr 1.21, lactate normalized-->- Dc her- Goal UOP 1-2 ml/kg/hr- RFP as clinically indicated- Replete electrolytes per SICU protocol ENDO: History of diabetes, Brigida's and hypothyroid. HbA1c: 7.9. Endocrinefollowing patient. Patient on insulin drip 03/31, transitioned to sliding scalemorning 04/01. Currently on lantus and lispro per endocrine recommendations -->- Consulted Endocrine for management of [facility]'s and diabetes- Continue hydrocortisone- Maintain BG <180, insulin per SICU protocol- Continue home synthroid HEME: Acute blood loss anemia and thrombocytopenia -->- Monitor drain output volume and characteristics- CBC, coags, and fibrinogen post op and as clinically indicated- SCDs and subcutaneous heparin for DVT prophylaxis. ID: Afebrile, no s/s of active infection. 03/19 MRSA screen and urine culturenegative.- Trend temp q4h- Periop Cefuroxime 1.5g x 5 doses Proph:SCDsSubcutaneous heparinPPI G: LineLeft Filiberto Richey - dc Dispo: Continue SICU care.#[id number] Code Status: Code StatusFull Code SCIP:Urinary Catheter Removed Post-Op Day 2: noReason Patient Needs Her: Strict I&0Patient on Beta Danica Prior to Admission: noProphylactic antibiotics scheduled to be discontinued with 24 hr of anesthesiaend time (48 hr for cardiac surgery): yesType of VTE Prophylaxis Ordered: Subcutaneous heparin and SCDs Signature/Cosignature/Attestat ion:Comments/ Additional Tokgclrr38e/o male s/p CABG x3 with Dr Gaston. Currently: Addisons Dz-steroids per endocrine Acute pulm insufficiency post op, hx of OSADue to pleural effusions- diurese todayAdequate oxygenation and ventilation on nasal cannulaCT 2 with air leakEncouraged aggressive Bronchopulmonary hygiene /Incentive Spirometry andEzPAP, out of bed, etcCPAP at night for AKASH PO as tolerated IDDMSSI as needed, endo followingMetoprolol for HR/BP controlASA/Statin CKDFollow UOP, adequate thus farD/c her Acute blood loss anemia- follow Hx of DVTs/p IVC filterrestart subcutaneous heparin Electronic Signatures:Abelino Klein) (Signed 02-Apr-2018 14:54)Authored: Signature/Cosignature/Attestat Cristiano Shultz (Resident)) (Signed 02-Apr-2018 08:39)Authored: Service, Subjective Data, Objective Data, Assessment and Plan Last Updated: 02-Apr-2018 14:54 by Abelino Klein) Normal [facility] Daily Progress Note-Endocrin ologyon 04-02-2018 Protein mass conc Consult Type: subseq uent visit/care Service: Endocrinology Subjective Data:DON ELKINS is a 67 year old Male who is Hospital Day # 16 and POD #2 for CABGx 3;-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 Objective Data: Objective Information: ---- Intake and Output -----Mn/Dy/Year TimeIntakeOutputNetNov 2017 2:00 [id number] 2017 6:00 [id number] 2017 10:00 [id number] The Intake and Output Totals for the last 24 hours are:[id number] Physical Exam: Constitutional: Well developed, awake/alert/oriented x3, no distress, alert andcooperativeGastrointestinal : Nondistended, soft, non-tender, no rebound tenderness orguarding, no masses palpable, no organomegaly, +BS, no bruitsSkin: Warm and dry, no lesions, no rashes Medication: Medications: Continuous Medications --No continuous medications are active Scheduled Medications -- 1. Aspirin Enteric Coated: 81 mg Oral Daily2. Atorvastatin: 40 mg Oral Daily3. Citalopram (CELEXA): 20 mg Oral Daily4. Docusate: 100 mg Oral 2 Times a Day5. Heparin SubCutaneous: 5000 unit(s) SubCutaneous Every 8 Hours6. hydrALAZINE: 25 mg Oral Every 8 Hours7. Hydrocortisone: 10 mg Oral Once8. Insulin Glargine (Lantus) Injectable: 20 unit(s) SubCutaneous At Bedtime 9. Insulin Lispro (HumaLOG) Injectable: 6 unit(s) SubCutaneous 3 Times aDay Before Meals10. Insulin Lispro Mild Corrective Scale: unit(s) SubCutaneous 3 Times a DayBefore Meals11. Iron Polysaccharide Complex: 150 mg Oral Daily12. Levothyroxine: 150 microgram(s) Oral Daily13. Lidocaine 5% TransDermal: 1 patch TransDermal Every 24 Hours14. Metoprolol Tartrate: 50 mg Oral Every 8 Hours15. Multivitamin with Minerals: 1 tablet(s) Oral Daily16. Pantoprazole: 40 mg Oral Daily17. Polyethylene Glycol: 17 gram(s) Oral 3 Times a Day18. rOPINIRole (REQUIP XL) Extended Release: 8 mg Oral Daily19. Warfarin: 5 mg Oral Daily PRN Medications -- 1. Bisacodyl Rectal: 10 mg Rectal Daily2. Dextrose 50% in Water Injectable: 25 gram(s) IntraVenous Push Every 14Xldtrfo7. Glucagon Injectable: 1 mg IntraMuscular Every 15 Minutes4. Ondansetron Injectable: 4 mg IntraVenous Push Every 6 Hours5. oxyCODONE Immediate Release: 5 mg Oral Every 4 Hours6. oxyCODONE Immediate Release: 10 mg Oral Every 4 Hours Currently Suspended Medications -- 1. Lisinopril: 20 mg Oral Every Night Recent Lab Results: Results: I have reviewed these laboratory results: Glucose_POCT Trending View [id number] 17:14:00 02-Apr-2018 11:05:00 02-Apr-2018 07:21:00 02-Apr-2018 03:09:00 01-Apr-2018 23:14:00 01-Apr-2018 19:21:00 [id number]:19:00 01-Apr-2018 11:07:00 01-Apr-2018 07:27:00 01-Apr-2018 03:17:00 01-Apr-2018 00:07:[id number] H 310 H 223 H 199 H 167 H 174 H 152H 181 H 228 H 168 H 175 H Renal Function Panel Trending View [id number] 02:35:00 01-Apr-2018 18:56:00 01-Apr-2018 03:26:00Glucose, [id number] H 169 H 167 QQT022 L 134 L 137K4.1 4.2 4.4CL97 L 99 100Bicarbonate, Serum27 28 26Anion Gap, Serum13 11 68EJI11 20 61SIXGO9.21 1.35 H 1.30GFR-Non Qsigvbby86 A 53 A 55 AGFR- Qgbpriok06 64 67Calcium, Serum8.5 L 8.8 8.7Phosphorus, Serum3.6 3.3 4.0ALB3.5 3.7 3.7 Cortisol P.M. Trending View [id number] 20:38:00 01-Apr-2018 18:56:00 01-Apr-2018 17:14:00Cortisol P.M.13.8 H 22.4 H 34.8 H Assessment and Plan:Assessment: Mr. Elkins is a 67 yo WM with no known history of CAD, who has a past medicalhistory of HTN, HLD, T2DM, [facility]'s disease, hypothyroidism, COPD, AKASH onCPAP, prostate ca s/p prostatectomy in 2011, and psoriasis who was [facility]to [facility] service at [facility] from [facility] on 03/18 forCA joanna.Endocrine consulted fr evaluation of Brigida disease and treatment periop Patient was on supra-therapeutic dose of HCT 20-0-20 , fludrocortisone 0.1 ,mgdailyPatient has uncontrolled HTN and uncontrolled BSIVC filter placed on 03/23 1. [facility] Disease-- Fludrocortisone 0.05 mg 4 times weekly ( and Friday)-- 03/31: CABG done in am, patient given HCT 30 mg by mouth once at 5 am , thenstarted on HCt 25 mg IV q6hrs-- Cortisol level checked q2 hrs after HCT IV : 44.9-->31,3 --> 17.4--HCt continued as 15 mg IV q6hrs on DAy1-2 post op--Please discontinue HCt IV, switch to following PO regimen:Given HCt 20 mg PO now , then 10 mg PO at 9 pm todayon 04/03 please make HCt PO 20 mg @ 8 am - 20 mg @ noon - 10 mg @ 5 pmthen on 04/04- make HCt PO 20 mg @ 8 am - 10 mg @ noon - 10 mg @ 5 pmthen on 04/06- make HCt PO 15 mg @ 8 am - 10 mg @ noon - 5 mg @ 5pmthen on 04/08- make HCt PO 10 mg @ 8 am - 5 mg @ noon - 2.5 mg @ 5pm 2. [id number]--qumqzcdg Glargine today as : 20 units QHS and Lispro 6 TIDAC-ISS correction to 2 units per 50 >150--Will follow Please page with questions [phone] Patient seen and examined, plan discussed with Dr Quevedo Signature/Cosignature/Attestat ion:Attending AttestationI saw and evaluated the patient. I personally obtainedthe judge and critical portions of the history and physical exam or wasphysically present for judge and critical portions performed by theresident/fellow. I reviewed the resident/fellows documentation and discussedthe patient with the resident/fellow. I agree with the resident/fellowsmedical decision making as documented in the residents note.I personally evaluated the patient (as noted in the above attestation) [id number] Electronic Signatures:Starr Quevedo) (Signed 03-Apr-2018 15:53)Authored: Signature/Cosignature/Attestat ionCo-Signer: Service, Subjective Data, Objective Data, Assessment and Plan,Signature/Cosignature/Att estationHasmukh Stephenson (Resident)) (Signed 02-Apr-2018 17:27)Authored: Service, Subjective Data, Objective Data, Assessment and Plan,Signature/Cosignature/Att estation Last Updated: 03-Apr-2018 15:53 by Starr Quevedo) Normal [facility] GLUCOSE-POCTon 04-02-2018 Glucose mass conc 200 mg/dL High 74 - 99 [facility] Comment on above: Performed By: #### E MRAD ####NO LOCATION NEEDED Glucose mass conc 137 mg/dL High 74 - 99 [facility] Comment on above: Performed By: #### E MRAD ####NO LOCATION NEEDED Glucose mass conc 310 mg/dL High 74 - 99 [facility] Comment on above: Result Comment: Glu2 : Fingertip - Capillar Performed By: #### E MRAD ####NO LOCATION NEEDED Glucose mass conc 223 mg/dL High 74 - 99 [facility] Comment on above: Result Comment: Glu2 : Fingertip - Capillar Performed By: #### E MRAD ####NO LOCATION NEEDED Glucose mass conc 199 mg/dL High 74 - 99 [facility] Comment on above: Performed By: #### E MRAD ####NO LOCATION NEEDED Glucose mass conc 167 mg/dL High 74 - 99 [facility] Comment on above: Performed By: #### E MRAD ####NO LOCATION NEEDED MAGNESIUMon 04-02-2018 Magnesium mass conc 1.88 mg/dL Normal 1.60 - 2.40 [facility] Comment on above: Performed By: #### E MRAD ####NO LOCATION NEEDED RENAL FUNCTION PANELon 04-02 Albumin mass conc 3.5 g/dL Normal 3.4 - 5.0 [facility] Comment on above: Performed By: #### E MRAD ####NO LOCATION NEEDED Anion gap 3 molar conc 13 mmol/L Normal 10 - 20 [facility] Comment on above: Performed By: #### E MRAD ####NO LOCATION NEEDED Calcium mass conc 8.5 mg/dL Low 8.6 - 10.6 [facility] Comment on above: Performed By: #### E MRAD ####NO LOCATION NEEDED Chloride molar conc 97 mmol/L Low 98 - 107 [facility] Comment on above: Performed By: #### E MRAD ####NO LOCATION NEEDED Creatinine mass conc 1.21 mg/dL Normal 0.50 - 1.30 [facility] Comment on above: Performed By: #### E MRAD ####NO LOCATION NEEDED GFR- AM. 73 mL/min/1.73m2 Normal >60 [facility] Comment on above: Result Comment: CALC ULATIONS OF ESTIMATED GFR ARE PERFORMED USING THE MDRD STUDY EQUATION FOR THE IDMS-TRACEABLE CREATININE METHODS. CLIN CHEM 2007;53:766-72 Performed By: #### E MRAD ####NO LOCATION NEEDED GFR-NON AM. 60 mL/min/1.73m2 Abnormal >60 [facility] Comment on above: Performed By: #### E MRAD ####NO LOCATION NEEDED Glucose mass conc 182 mg/dL High 74 - 99 [facility] Comment on above: Performed By: #### E MRAD ####NO LOCATION NEEDED HCO3 molar conc (Bld) 27 mmol/L Normal 21 - 32 [facility] Comment on above: Performed By: #### E MRAD ####NO LOCATION NEEDED Phosphate mass conc 3.6 mg/dL Normal 2.5 - 4.9 [facility] Comment on above: Result Comment: The performance characteristics of phosphorus testing in heparinized plasma have been validated by the individual laboratory site where testing is performed. Testing on heparinized plasma is not approved by the FDA; however, such approval is not necessary. Performed By: #### E MRAD ####NO LOCATION NEEDED Potassium molar conc 4.1 mmol/L Normal 3.5 - 5.3 [facility] Comment on above: Performed By: #### E MRAD ####NO LOCATION NEEDED Sodium molar conc 133 mmol/L Low 136 - 145 [facility] Comment on above: Performed By: #### E MRAD ####NO LOCATION NEEDED Urea nitrogen mass conc 21 mg/dL Normal 6 - 23 [facility] Comment on above: Performed By: #### E MRAD ####NO LOCATION NEEDED TH CHEST 1 VIEWon 04-02-2018 TH CHEST 1 VIEW Name: DON ELKINS STUDY:TH CHEST 1 VIEW; 04/02/2018 4:03 am INDICATION:Signs/Symptoms: AM rounds. COMPARISON:Chest radiograph from 04/01/2018 ORDERING CLINICIAN:TESSIE BYRD FINDINGS:Interval extubation and removal of enteric tube. Right IJ Geneseo-Ganzcatheter has also been removed. There has also been interval removalof left basilar chest tube. Persistent mediastinal drain.Status post median sternotomy. Patient is slightly rotated towardsright. The cardiomediastinal silhouette is enlarged and grossly stable,allowing for slight differences in patient positioning. Persistent low lung volumes and bronchovascular crowding and no frankpulmonary edema. Slight improvement in mild bibasilar atelectasis.Questionable small pleural effusions. There is new trace right apicalpneumothorax seen. No acute osseous abnormality. IMPRESSION:1. Medical devices as above. New trace left apical pneumothorax.Attention on follow-up imaging is recommended.2. Stable enlargement of cardiomediastinal silhouette without frankpulmonary edema.3. Interval slight improvement in mild bibasilar atelectasis, leftmore than right. Small pleural effusions are not excluded. Electronically signed by: STANISLAV RADFORD MD Normal [facility] ARTERIAL FULL PANELon 2017 Anion gap 3 molar conc 10 mmol/L Normal 10 - 25 [facility] Comment on above: Performed By: #### E MRAD ####NO LOCATION NEEDED BASE EXCESS-BLOOD 1.9 mmol/L Normal -2.0 - 3.0 [facility] Comment on above: Performed By: #### E MRAD ####NO LOCATION NEEDED CALCIUM,IONIZED 1.12 mmol/L Normal 1.10 - 1.33 [facility] Comment on above: Performed By: #### E MRAD ####NO LOCATION NEEDED Chloride molar conc 100 mmol/L Normal 98 - 107 [facility] Comment on above: Performed By: #### E MRAD ####NO LOCATION NEEDED Glucose mass conc 151 mg/dL High 74 - 99 [facility] Comment on above: Performed By: #### E MRAD ####NO LOCATION NEEDED Hematocrit Auto Volume Fraction (Bld) 30.0 % Low 41.0 - 52.0 [facility] Comment on above: Performed By: #### E MRAD ####NO LOCATION NEEDED HGB,CALCULATED 10.2 g/dL Low 13.5 - 17.5 [facility] Comment on above: Performed By: #### E MRAD ####NO LOCATION NEEDED Lactate molar conc 2.3 mmol/L High 0.4 - 2.0 [facility] Comment on above: Performed By: #### E MRAD ####NO LOCATION NEEDED Oxygen ppres (BldA) 82 mm[Hg] Low 85 - 95 [facility] Comment on above: Performed By: #### E MRAD ####NO LOCATION NEEDED PCO2 41 mmHg Normal 38 - 42 [facility] Comment on above: Performed By: #### E MRAD ####NO LOCATION NEEDED pH (Bld) 7.42 [pH] Normal 7.38 - 7.42 [facility] Comment on above: Performed By: #### E MRAD ####NO LOCATION NEEDED Potassium molar conc 4.1 mmol/L Normal 3.5 - 5.3 [facility] Comment on above: Performed By: #### E MRAD ####NO LOCATION NEEDED RBC Auto #/vol (Bld) 26.6 mmol/L High 22.0 - 26.0 [facility] Comment on above: Performed By: #### E MRAD ####NO LOCATION NEEDED SO2 98 % Normal 94 - 100 [facility] Comment on above: Performed By: #### E MRAD ####NO LOCATION NEEDED Sodium molar conc 132 mmol/L Low 136 - 145 [facility] Comment on above: Performed By: #### E MRAD ####NO LOCATION NEEDED Anion gap 3 molar conc 8 mmol/L Low 10 - 25 [facility] Comment on above: Performed By: #### E MRAD ####NO LOCATION NEEDED BASE EXCESS-BLOOD 3.0 mmol/L Normal -2.0 - 3.0 [facility] Comment on above: Performed By: #### E MRAD ####NO LOCATION NEEDED CALCIUM,IONIZED 1.17 mmol/L Normal 1.10 - 1.33 [facility] Comment on above: Performed By: #### E MRAD ####NO LOCATION NEEDED Chloride molar conc 101 mmol/L Normal 98 - 107 [facility] Comment on above: Performed By: #### E MRAD ####NO LOCATION NEEDED Glucose mass conc 164 mg/dL High 74 - 99 [facility] Comment on above: Performed By: #### E MRAD ####NO LOCATION NEEDED Hematocrit Auto Volume Fraction (Bld) 29.0 % Low 41.0 - 52.0 [facility] Comment on above: Performed By: #### E MRAD ####NO LOCATION NEEDED HGB,CALCULATED 9.9 g/dL Low 13.5 - 17.5 [facility] Comment on above: Performed By: #### E MRAD ####NO LOCATION NEEDED Lactate molar conc 2.2 mmol/L High 0.4 - 2.0 [facility] Comment on above: Performed By: #### E MRAD ####NO LOCATION NEEDED Oxygen ppres (BldA) 75 mm[Hg] Low 85 - 95 [facility] Comment on above: Performed By: #### E MRAD ####NO LOCATION NEEDED PCO2 43 mmHg High 38 - 42 [facility] Comment on above: Performed By: #### E MRAD ####NO LOCATION NEEDED pH (Bld) 7.42 [pH] Normal 7.38 - 7.42 [facility] Comment on above: Performed By: #### E MRAD ####NO LOCATION NEEDED Potassium molar conc 4.3 mmol/L Normal 3.5 - 5.3 [facility] Comment on above: Performed By: #### E MRAD ####NO LOCATION NEEDED RBC Auto #/vol (Bld) 27.9 mmol/L High 22.0 - 26.0 [facility] Comment on above: Performed By: #### E MRAD ####NO LOCATION NEEDED SO2 97 % Normal 94 - 100 [facility] Comment on above: Performed By: #### E MRAD ####NO LOCATION NEEDED Sodium molar conc 133 mmol/L Low 136 - 145 [facility] Comment on above: Performed By: #### E MRAD ####NO LOCATION NEEDED Anion gap 3 molar conc 11 mmol/L Normal 10 - 25 [facility] Comment on above: Performed By: #### E MRAD ####NO LOCATION NEEDED BASE EXCESS-BLOOD 0.9 mmol/L Normal -2.0 - 3.0 [facility] Comment on above: Performed By: #### E MRAD ####NO LOCATION NEEDED CALCIUM,IONIZED 1.16 mmol/L Normal 1.10 - 1.33 [facility] Comment on above: Performed By: #### E MRAD ####NO LOCATION NEEDED Chloride molar conc 101 mmol/L Normal 98 - 107 [facility] Comment on above: Performed By: #### E MRAD ####NO LOCATION NEEDED Glucose mass conc 177 mg/dL High 74 - 99 [facility] Comment on above: Performed By: #### E MRAD ####NO LOCATION NEEDED Hematocrit Auto Volume Fraction (Bld) 31.0 % Low 41.0 - 52.0 [facility] Comment on above: Performed By: #### E MRAD ####NO LOCATION NEEDED HGB,CALCULATED 10.5 g/dL Low 13.5 - 17.5 [facility] Comment on above: Performed By: #### E MRAD ####NO LOCATION NEEDED Lactate molar conc 3.3 mmol/L High 0.4 - 2.0 [facility] Comment on above: Performed By: #### E MRAD ####NO LOCATION NEEDED Oxygen ppres (BldA) 73 mm[Hg] Low 85 - 95 [facility] Comment on above: Performed By: #### E MRAD ####NO LOCATION NEEDED PCO2 38 mmHg Normal 38 - 42 [facility] Comment on above: Performed By: #### E MRAD ####NO LOCATION NEEDED pH (Bld) 7.43 [pH] High 7.38 - 7.42 [facility] Comment on above: Performed By: #### E MRAD ####NO LOCATION NEEDED Potassium molar conc 4.2 mmol/L Normal 3.5 - 5.3 [facility] Comment on above: Performed By: #### E MRAD ####NO LOCATION NEEDED RBC Auto #/vol (Bld) 25.2 mmol/L Normal 22.0 - 26.0 [facility] Comment on above: Performed By: #### E MRAD ####NO LOCATION NEEDED SO2 96 % Normal 94 - 100 [facility] Comment on above: Performed By: #### E MRAD ####NO LOCATION NEEDED Sodium molar conc 133 mmol/L Low 136 - 145 [facility] Comment on above: Performed By: #### E MRAD ####NO LOCATION NEEDED Anion gap 3 molar conc 12 mmol/L Normal 10 - 25 [facility] Comment on above: Performed By: #### E MRAD ####NO LOCATION NEEDED BASE EXCESS-BLOOD 3.5 mmol/L High -2.0 - 3.0 [facility] Comment on above: Performed By: #### E MRAD ####NO LOCATION NEEDED CALCIUM,IONIZED 1.12 mmol/L Normal 1.10 - 1.33 [facility] Comment on above: Performed By: #### E MRAD ####NO LOCATION NEEDED Chloride molar conc 100 mmol/L Normal 98 - 107 [facility] Comment on above: Performed By: #### E MRAD ####NO LOCATION NEEDED Glucose mass conc 177 mg/dL High 74 - 99 [facility] Comment on above: Performed By: #### E MRAD ####NO LOCATION NEEDED Hematocrit Auto Volume Fraction (Bld) 32.0 % Low 41.0 - 52.0 [facility] Comment on above: Performed By: #### E MRAD ####NO LOCATION NEEDED HGB,CALCULATED 10.9 g/dL Low 13.5 - 17.5 [facility] Comment on above: Performed By: #### E MRAD ####NO LOCATION NEEDED Lactate molar conc 2.8 mmol/L High 0.4 - 2.0 [facility] Comment on above: Performed By: #### E MRAD ####NO LOCATION NEEDED Oxygen ppres (BldA) 85 mm[Hg] Normal 85 - 95 [facility] Comment on above: Performed By: #### E MRAD ####NO LOCATION NEEDED PCO2 44 mmHg High 38 - 42 [facility] Comment on above: Performed By: #### E MRAD ####NO LOCATION NEEDED pH (Bld) 7.42 [pH] Normal 7.38 - 7.42 [facility] Comment on above: Performed By: #### E MRAD ####NO LOCATION NEEDED Potassium molar conc 4.6 mmol/L Normal 3.5 - 5.3 [facility] Comment on above: Performed By: #### E MRAD ####NO LOCATION NEEDED RBC Auto #/vol (Bld) 28.5 mmol/L High 22.0 - 26.0 [facility] Comment on above: Performed By: #### E MRAD ####NO LOCATION NEEDED SO2 99 % Normal 94 - 100 [facility] Comment on above: Performed By: #### E MRAD ####NO LOCATION NEEDED Sodium molar conc 136 mmol/L Normal 136 - 145 [facility] Comment on above: Performed By: #### E MRAD ####NO LOCATION NEEDED Anion gap 3 molar conc 9 mmol/L Low 10 - 25 [facility] Comment on above: Performed By: #### E MRAD ####NO LOCATION NEEDED BASE EXCESS-BLOOD 2.4 mmol/L Normal -2.0 - 3.0 [facility] Comment on above: Performed By: #### E MRAD ####NO LOCATION NEEDED CALCIUM,IONIZED 1.10 mmol/L Normal 1.10 - 1.33 [facility] Comment on above: Performed By: #### E MRAD ####NO LOCATION NEEDED Chloride molar conc 102 mmol/L Normal 98 - 107 [facility] Comment on above: Performed By: #### E MRAD ####NO LOCATION NEEDED Glucose mass conc 166 mg/dL High 74 - 99 [facility] Comment on above: Performed By: #### E MRAD ####NO LOCATION NEEDED Hematocrit Auto Volume Fraction (Bld) 29.0 % Low 41.0 - 52.0 [facility] Comment on above: Performed By: #### E MRAD ####NO LOCATION NEEDED HGB,CALCULATED 9.9 g/dL Low 13.5 - 17.5 [facility] Comment on above: Performed By: #### E MRAD ####NO LOCATION NEEDED Lactate molar conc 3.1 mmol/L High 0.4 - 2.0 [facility] Comment on above: Performed By: #### E MRAD ####NO LOCATION NEEDED Oxygen ppres (BldA) 115 mm[Hg] High 85 - 95 [facility] Comment on above: Performed By: #### E MRAD ####NO LOCATION NEEDED PCO2 42 mmHg Normal 38 - 42 [facility] Comment on above: Performed By: #### E MRAD ####NO LOCATION NEEDED pH (Bld) 7.42 [pH] Normal 7.38 - 7.42 [facility] Comment on above: Performed By: #### E MRAD ####NO LOCATION NEEDED Potassium molar conc 4.4 mmol/L Normal 3.5 - 5.3 [facility] Comment on above: Performed By: #### E MRAD ####NO LOCATION NEEDED RBC Auto #/vol (Bld) 27.2 mmol/L High 22.0 - 26.0 [facility] Comment on above: Performed By: #### E MRAD ####NO LOCATION NEEDED SO2 99 % Normal 94 - 100 [facility] Comment on above: Performed By: #### E MRAD ####NO LOCATION NEEDED Sodium molar conc 134 mmol/L Low 136 - 145 [facility] Comment on above: Performed By: #### E MRAD ####NO LOCATION NEEDED Anion gap 3 molar conc 10 mmol/L Normal 10 - 25 [facility] Comment on above: Performed By: #### E MRAD ####NO LOCATION NEEDED BASE EXCESS-BLOOD 1.2 mmol/L Normal -2.0 - 3.0 [facility] Comment on above: Performed By: #### E MRAD ####NO LOCATION NEEDED CALCIUM,IONIZED 1.10 mmol/L Normal 1.10 - 1.33 [facility] Comment on above: Performed By: #### E MRAD ####NO LOCATION NEEDED Chloride molar conc 102 mmol/L Normal 98 - 107 [facility] Comment on above: Performed By: #### E MRAD ####NO LOCATION NEEDED Glucose mass conc 174 mg/dL High 74 - 99 [facility] Comment on above: Performed By: #### E MRAD ####NO LOCATION NEEDED Hematocrit Auto Volume Fraction (Bld) 30.0 % Low 41.0 - 52.0 [facility] Comment on above: Performed By: #### E MRAD ####NO LOCATION NEEDED HGB,CALCULATED 10.2 g/dL Low 13.5 - 17.5 [facility] Comment on above: Performed By: #### E MRAD ####NO LOCATION NEEDED Lactate molar conc 2.8 mmol/L High 0.4 - 2.0 [facility] Comment on above: Performed By: #### E MRAD ####NO LOCATION NEEDED Oxygen ppres (BldA) 133 mm[Hg] High 85 - 95 [facility] Comment on above: Performed By: #### E MRAD ####NO LOCATION NEEDED PCO2 41 mmHg Normal 38 - 42 [facility] Comment on above: Performed By: #### E MRAD ####NO LOCATION NEEDED pH (Bld) 7.41 [pH] Normal 7.38 - 7.42 [facility] Comment on above: Performed By: #### E MRAD ####NO LOCATION NEEDED Potassium molar conc 4.3 mmol/L Normal 3.5 - 5.3 [facility] Comment on above: Performed By: #### E MRAD ####NO LOCATION NEEDED RBC Auto #/vol (Bld) 26.0 mmol/L Normal 22.0 - 26.0 [facility] Comment on above: Performed By: #### E MRAD ####NO LOCATION NEEDED SO2 99 % Normal 94 - 100 [facility] Comment on above: Performed By: #### E MRAD ####NO LOCATION NEEDED Sodium molar conc 134 mmol/L Low 136 - 145 [facility] Comment on above: Performed By: #### E MRAD ####NO LOCATION NEEDED Anion gap 3 molar conc 13 mmol/L Normal 10 - 25 [facility] Comment on above: Performed By: #### E MRAD ####NO LOCATION NEEDED BASE EXCESS-BLOOD -0.2 mmol/L Normal -2.0 - 3.0 [facility] Comment on above: Performed By: #### E MRAD ####NO LOCATION NEEDED CALCIUM,IONIZED 1.09 mmol/L Low 1.10 - 1.33 [facility] Comment on above: Performed By: #### E MRAD ####NO LOCATION NEEDED Chloride molar conc 101 mmol/L Normal 98 - 107 [facility] Comment on above: Performed By: #### E MRAD ####NO LOCATION NEEDED Glucose mass conc 176 mg/dL High 74 - 99 [facility] Comment on above: Performed By: #### E MRAD ####NO LOCATION NEEDED Hematocrit Auto Volume Fraction (Bld) 37.0 % Low 41.0 - 52.0 [facility] Comment on above: Performed By: #### E MRAD ####NO LOCATION NEEDED HGB,CALCULATED 12.6 g/dL Low 13.5 - 17.5 [facility] Comment on above: Performed By: #### E MRAD ####NO LOCATION NEEDED Lactate molar conc 2.6 mmol/L High 0.4 - 2.0 [facility] Comment on above: Performed By: #### E MRAD ####NO LOCATION NEEDED Oxygen ppres (BldA) 91 mm[Hg] Normal 85 - 95 [facility] Comment on above: Performed By: #### E MRAD ####NO LOCATION NEEDED PCO2 41 mmHg Normal 38 - 42 [facility] Comment on above: Performed By: #### E MRAD ####NO LOCATION NEEDED pH (Bld) 7.39 [pH] Normal 7.38 - 7.42 [facility] Comment on above: Performed By: #### E MRAD ####NO LOCATION NEEDED Potassium molar conc 4.5 mmol/L Normal 3.5 - 5.3 [facility] Comment on above: Performed By: #### E MRAD ####NO LOCATION NEEDED RBC Auto #/vol (Bld) 24.8 mmol/L Normal 22.0 - 26.0 [facility] Comment on above: Performed By: #### E MRAD ####NO LOCATION NEEDED SO2 98 % Normal 94 - 100 [facility] Comment on above: Performed By: #### E MRAD ####NO LOCATION NEEDED Sodium molar conc 134 mmol/L Low 136 - 145 [facility] Comment on above: Performed By: #### E MRAD ####NO LOCATION NEEDED CALCIUM, IONIZEDon 8 CALCIUM,IONIZED 1.04 mmol/L Low 1.10 - 1.33 [facility] Comment on above: Result Comment: The performance characteristics of ionized calcium tested in heparinized plasma or serum have been validated by the individual laboratory site where testing is performed. Testing on heparinized plasma or serum is not approved by the FDA; however, such approval is not necessary. Performed By: #### E MRAD ####NO LOCATION NEEDED CBCon 04-01-2018 Erythrocyte distribution width Auto Ratio (RBC) 13.2 % Normal 11.5 - 14.5 [facility] Comment on above: Performed By: #### E MRAD ####NO LOCATION NEEDED Hematocrit Auto Volume Fraction (Bld) 29.9 % Low 41.0 - 52.0 [facility] Comment on above: Performed By: #### E MRAD ####NO LOCATION NEEDED Hemoglobin mass conc (Bld) 10.0 g/dL Low 13.5 - 17.5 [facility] Comment on above: Performed By: #### E MRAD ####NO LOCATION NEEDED MCHC Auto mass conc (RBC) 33.4 g/dL Normal 32.0 - 36.0 [facility] Comment on above: Performed By: #### E MRAD ####NO LOCATION NEEDED MCV Auto Entitic volume (RBC) 93 fL Normal 80 - 100 [facility] Comment on above: Performed By: #### E MRAD ####NO LOCATION NEEDED Nucleated RBC/100 WBC Ratio (Bld) 0.0 /100 WBC Normal 0.0-0.0 [facility] Comment on above: Performed By: #### E MRAD ####NO LOCATION NEEDED Platelets Auto #/vol (Bld) 144 10*3/uL Low 150 - 450 [facility] Comment on above: Performed By: #### E MRAD ####NO LOCATION NEEDED RBC Auto #/vol (Bld) 3.23 x10E12/L Low 4.50 - 5.90 [facility] Comment on above: Performed By: #### E MRAD ####NO LOCATION NEEDED WBC Auto #/vol (Bld) 11.4 10*3/uL High 4.4 - 11.3 [facility] Comment on above: Performed By: #### E MRAD ####NO LOCATION NEEDED Erythrocyte distribution width Auto Ratio (RBC) 13.1 % Normal 11.5 - 14.5 [facility] Comment on above: Performed By: #### E MRAD ####NO LOCATION NEEDED Hematocrit Auto Volume Fraction (Bld) 32.1 % Low 41.0 - 52.0 [facility] Comment on above: Performed By: #### E MRAD ####NO LOCATION NEEDED Hemoglobin mass conc (Bld) 10.9 g/dL Low 13.5 - 17.5 [facility] Comment on above: Performed By: #### E MRAD ####NO LOCATION NEEDED MCHC Auto mass conc (RBC) 34.0 g/dL Normal 32.0 - 36.0 [facility] Comment on above: Performed By: #### E MRAD ####NO LOCATION NEEDED MCV Auto Entitic volume (RBC) 92 fL Normal 80 - 100 [facility] Comment on above: Performed By: #### E MRAD ####NO LOCATION NEEDED Nucleated RBC/100 WBC Ratio (Bld) 0.0 /100 WBC Normal 0.0-0.0 [facility] Comment on above: Performed By: #### E MRAD ####NO LOCATION NEEDED Platelets Auto #/vol (Bld) 158 10*3/uL Normal 150 - 450 [facility] Comment on above: Performed By: #### E MRAD ####NO LOCATION NEEDED RBC Auto #/vol (Bld) 3.50 x10E12/L Low 4.50 - 5.90 [facility] Comment on above: Performed By: #### E MRAD ####NO LOCATION NEEDED WBC Auto #/vol (Bld) 9.7 10*3/uL Normal 4.4 - 11.3 [facility] Comment on above: Performed By: #### E MRAD ####NO LOCATION NEEDED COAGULATION SCREENon -14-2 018 aPTT Coag time (Bld) 25 s Low 28 - 38 [facility] Comment on above: Result Comment: Note new reference range as of 03/10/2018. THE APTT IS NO LONGER USED FOR MONITORING UNFRACTIONATED HEPARIN THERAPY. FOR MONITORING HEPARIN THERAPY, USE THE HEPARIN ASSAY. Performed By: #### E MRAD ####NO LOCATION NEEDED INR Coag RelTime (PPP) 1.3 {INR} High 0.9 - 1.1 [facility] Comment on above: Performed By: #### E MRAD ####NO LOCATION NEEDED Prothrombin time (PT) Coag time (PPP) 14.0 s High 9.7 - 12.7 [facility] Comment on above: Result Comment: Note new reference range as of 03/10/2018. Performed By: #### E MRAD ####NO LOCATION NEEDED CORTISOL, P.M.on 04-01-2018 CORTISOL, P.M. 22.4 ug/dL High 2.5 - 10.0 [facility] Comment on above: Performed By: #### E MRAD ####NO LOCATION NEEDED CORTISOL, P.M. 34.8 ug/dL High 2.5 - 10.0 [facility] Comment on above: Performed By: #### E MRAD ####NO LOCATION NEEDED Daily Progress Note - Critic al Care-SICU mary 04-01-2018 Protein mass conc Service:Critical Car e Service: ServiceSICU rodrigue Subjective Data:ID Statement:DON ELKINS is a 67 year old Male who is Hospital Day # 15 and ICU Day #2 andPOD #1 for CABG x 3;-REIS to LAD;-SVG to PDA;-SVG to Diag ;Endoscopic harvestof right saphenous vein. Overnight patient off insulin drip and transitioned to sliding scale with goodglucose control. Patient extubated on 5 L NC. Given 500 total of crystalloidand 750 total of albumin. Patient sitting up in chair this morning and stateshis pain is well controlled. Objective Data: Objective InformationT [id number]/5997 %Date/Time04/01 4: 6: 6: 14: 6:00Range(36.5C - 37.9C ) (95 - 110 ) (13 - 18 ) (125 - 125 )/ (59 - 59 )(94% - 100% ) As of 01-Apr-2018 05:00:00, patient is on 5 L/min of oxygen via nasal cannula.Highest temp of 37.9 C was recorded at 04/01 0:00 Cardiac HemodynamicsCore Temperature degrees C38(38 - 38)04/01 6:00Cardiac Output (L/min)9.6(0.5 - 9.9)04/01 6:00Cardiac Index (L/min/m2)4.4(2.2 - 4.5)04/01 6:00SVO2 %73(72 - 75)04/01 6:00SVR (dyne sec/cm-5)722 04/01 4:00PVR (dyne sec/cm-5)70(68 - 74)03/31 19:00 Direct Arterial Blood ZtlllhnfUkzavioi604(129 - 161)04/01 6:45Diastolic (mm Hg)67(53 - 70)04/01 6:45Mean (mm Hg)91(76 - 96)04/01 6:45Pulse Pressure (mm Hg)85(71 - 96)04/01 6:17Lmierqgb297(129 - 161)04/01 6:45Diastolic (mm Hg)67(53 - 70)04/01 6:45Mean (mm Hg)91(76 - 96)04/01 6:45Pulse Pressure (mm Hg)85(71 - 96)04/01 6:45 PPTAyxfvqcf40(27 - 39)04/01 6:00Diastolic (mm Hg)12(10 - 22)04/01 6:00Mean (mm Hg)18(18 - 29)04/01 6:00 ---- Intake and Output -----Mn/Dy/Year TimeIntakeOutputNetNov 2017 6:00 am991.0066525Fqx 2017 10:00 fr5631.60200851Eqm 2017 2:00 pm000 The Intake and Output Totals for the last 24 hours are:[id number] Drain and tube details (included in I&O totals)390 cc Chest Tube( 01-Apr-2018 06:00:00 )2160 cc Indwelling Catheter - Urethral( 01-Apr-2018 06:00:00 ) Physical Exam: Physical Exam:Neurological: Alert and oriented x3.Cardiovascular: Sinus tach 111. Midsternal incision with dressing CDI.Mediastinal chest tube x 2, left pleural chest tube x 1, draining minimalserosang. A-wires present, AAI @ 90. Right SVG site with lauren bandage intact.Pulses palpable throughout.Respiratory/Thorax: CTAB on 2L NC.Genitourinary: Her intact, draining clear yellow urine.Gastrointestinal: Abdomen soft, non-distended. Bowel sounds present.Skin: Warm and dry, no lesions, no rashesConstitutional: Sitting up in chair in NADEyes: PERRL, EOMI, clear scleraENMT: mucous membranes moist, no apparent injury, no lesions seenHead/Neck: RIJ MAC with SCG, trachea midlineExtremities: normal extremities, no cyanosis edema, contusions or wounds, noclubbingPsychological: Mood and behavior appropriate Allergies: Allergies: No Known Allergies: Recent Lab Results: Results:CBC: 04/01/2018 03:26 \ Hgb / \ 10.9 L /WBC Plt 9.7 158 / Hct \ / 32.1 L \ RBC: 3.50 L MCV: 92 RFP: 04/01/2018 03:26NA+ Cl- BUN / 137 100 20 / --- Glucose ---- 167 H K+ HCO3- Creat \ 4.4 26 1.30 \Calcium : 8.7Anion Gap : 15 Albumin : 3.7 Phos : 4.0 Coagulation: 04/01/2018 03:26PT / 14.0 H /-------< INR < 1.3 HPTT\ 25 L \ Fibrinogen: Canceled Recent Arterial Blood Gas Results 04/01/2018 04:23gG689 24 h range: ( 63 - 392 )pH7.42 24 h range: ( 7.28 - 7.42 )tGI306 24 h range: ( 38 - 51 )SO299 24 h range: ( 91 - 100 )Base Excess3.5 24 h range: ( -4.5 - 3.5 )Qntpzhkzubu72.5 24 h range: ( 22 - 28.5 ) Results: Impression: 1. Postsurgical changes and medical appliances as described above.2. Persistent bibasilar opacity, rightmore than left likely due toatelectasis and small effusion.3. Unchanged enlarged cardiac silhouette size. Xray Chest 1 View [Apr 01 2018 9:54AM] Assessment and Plan:Daily Risk Screen: Does patient have a central lineyes Central Line Typenon-tunneled Plan for non-tunneled central line removal todayyes Does patient have an indwelling urinary catheteryes Plan for indwelling urinary catheter removal todayno The patient continues to require indwelling urinary catheterization forcritically ill patients who need accurate urinary output measurements Is the patient intubatedno Other:Assessment: Assessment:67 year old with a history of CAD, HTN, HLD, DM2, Gerd, [facility]'s, andhypothyroid presents from the OR s/p CABG x 3. Plan:NEURO: Patient arrived intubated and sedated on propofol infusion. Acutepost-operative pain. H/o depression, RLS. Patient is extubated on 2L NC.-->- Restart home citalopram and ropinirole- Serial neuro and pain assessments- PO oxycodone PRN- PRN dilaudid IV for breakthrough- Lidoderm patches- PT Consult, OOB to chair as tolerated- CAM ICU score qshift- Sleep/wake cycle hygiene CV: Patient has a history of CAD, HTN, HLD and is status post CABG x 3. LVfunction: normal pre-op, intra-op echo not obtained d/t patient reportingdysphagia ~1 month. Arrived to ICU on Clevidipine. Pacer set at AAI @ 60. On 4cleveprex currently for hypertension.- Continuous EKG and ABP monitoring- Titrate gtts to maintain goal MAP 70-90, CI >2.2- Volume resuscitate as clinically indicated- Ordered 50 mg metoprolol TID for heartrate and BP control- Chest tubes to wall suction - dc left pleural chest tube, mediastinal hasairleak present- Holding home lisinopril- Start ASA today- Start statin today PULM: Presented to OSH with chest pain and SOB, CT of chest revealed bilaterallobar segmental and several PEs in subsegmental branches. 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 -->- Chest xray daily as indicated- Wean FiO2 maintaining SpO2 >92%.- ABGs as needed- IS q1h and OOB to chair- Home CPAP tonight GI: Diabetic diet. H/o GERD. Beside swallow passed today-->- Continue PPI- Diabetic diet- Colace and miralax ordered : Baseline serum creatinine 1.4-1.6. Currently Cr 1.3, lactate 3.3 -->- Continue her catheter for strict I/Os.- Goal UOP 1-2 ml/kg/hr- RFP as clinically indicated- Replete electrolytes per SICU protocol- Ordered 500, 500 plasmalyte boluses for increased lactate ENDO: History of diabetes, [facility]'s and hypothyroid. HbA1c: 7.9. Endocrinefollowing patient. Patient on insulin drip 03/31, transitioned to sliding scalemorning 04/01 -->- Consulted Endocrine for management of Brigida's and diabetes- Continue hydrocortisone- Maintain BG <180, insulin per SICU protocol- Continue home synthroid HEME: Acute blood loss anemia and thrombocytopenia -->- Monitor drain output volume and characteristics- CBC, coags, and fibrinogen post op and as clinically indicated- SCDs and subcutaneous heparin for DVT prophylaxis. ID: Afebrile, no s/s of active infection. 03/19 MRSA screen and urine culturenegative.- Trend temp q4h- Periop Cefuroxime 1.5g x 5 doses Proph:SCDsSubcutaneous heparinPPI G: LineRight IJ MAC w PAC - dcLeft Filiberto Richey Dispo: Continue SICU care.#[id number] Code Status: Code StatusFull Code SCIP:Urinary Catheter Removed Post-Op Day 2: noReason Patient Needs Her: Strict I&0Patient on Beta Danica Prior to Admission: noProphylactic antibiotics scheduled to be discontinued with 24 hr of anesthesiaend time (48 hr for cardiac surgery): yesType of VTE Prophylaxis Ordered: Subcutaneous heparin and SCDs Signature/Cosignature/Attestat ion:Comments/ Additional Crlwpkbz37v/o male s/p CABG x3 with Dr Gaston. Currently: Hyperdynamic COlow CVP, elevated lactate-> continue gentle resuscitationFollow lactate Addisons Dz-steroids per endocrine Acute pulm insufficiency post op, hx of OSADue to pleural effusionsAdequate oxygenation and ventilation on nasal cannulaCT 2 with air leakEncouraged aggressive Bronchopulmonary hygiene /Incentive Spirometry andEzPAP, out of bed, etcCPAP at night for AKASH PO as tolerated IDDMSSI as needed, endo followingwill add lantus once starts PO intake Metoprolol for HR/BP controlASA/Statin CKDFollow UOP, adequate thus far Acute blood loss anemia- follow Hx of DVTs/p IVC filterrestart subcutaneous heparin Critical Care PatientI have reviewed and evaluated the most recent data kenney, personally examined the patient, and formulated the plan of care aspresented above. This patient was critically ill and required continuedcritical care treatment. Teaching and any separately billable procedures arenot included in the time calculation.Billing Provider Critical Care Time39 minute(s)Primary Critical Care Issue/Treatment (See Assessment and Plan for greaterdetail)-- This patient has undergone a major operation or significantprocedure and must have intensive monitoring and management to diagnose orprevent life or limb threatening deterioration. Please see assessment and planabove for greater detail. Electronic Signatures:Abelino Klein () (Signed 01-Apr-2018 11:25)Authored: Signature/Cosignature/Attestat Cristiano Shultz ( (Resident)) (Signed 01-Apr-2018 11:56)Authored: Service, Subjective Data, Objective Data, Assessment and Plan Last Updated: 01-Apr-2018 11:56 by Cristiano Wynne ( (Resident)) Normal [facility] Daily Progress Note-Endocrin ologyon 04-01-2018 Protein mass conc Consult Type: subseq uent visit/care Service: Endocrinology Subjective Data:DON ELKINS is a 67 year old Male who is Hospital Day # 15 and POD #1 for CABGx 3;-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 post op D1 , dong well, HDS , on HCt 25 mg IV. Objective Data: Objective Information: ---- Intake and Output -----Mn/Dy/Year TimeIntakeOutputNetNov 2017 6:00 am991.9147853Apn 2017 10:00 mw5388.74881414Tpa 2017 2:00 pm000 The Intake and Output Totals for the last 24 hours are:[id number] Physical Exam: Constitutional: Well developed, awake/alert/oriented x3, no distress, alert andcooperativeGastrointestinal : Nondistended, soft, non-tender, no rebound tenderness orguarding, no masses palpable, no organomegaly, +BS, no bruitsSkin: Warm and dry, no lesions, no rashes Assessment and Plan:Assessment: Mr. Elkins is a 67 yo WM with no known history of CAD, who has a past medicalhistory of HTN, HLD, T2DM, Brigida's disease, hypothyroidism, COPD, AKASH onCPAP, prostate ca s/p prostatectomy in 2011, and psoriasis [facility] from [facility] on 03/18 forCABG eval.Endocrine consulted fr evaluation of Brigida disease and treatment periop Patient was on supra-therapeutic dose of HCT 20-0-20 , fludrocortisone 0.1 ,mgdailyPatient has uncontrolled HTN and uncontrolled BSIVC filter placed on 03/23 1. [facility] Disease-- Fludrocortisone 0.05 mg 4 times weekly ( and Friday)-- 03/31: CABG done in am, patient given HCT 30 mg by mouth once at 5 am ,Cortisol level checked one hour later, HCt 25 mg IV q6hrs to be started @ 6 andand continued as q6hrs-- Cortisol level checked q2 hrs after pm dose of HCT IV : 44.9-->31,3 --> 17.4 --Will change dose of HCT to 15 mg IV q6hrs as of NOW--Check Cortisol level at 5pm - 7pm - 9pm Today then may give next HCt doseafter drawing blood at 9 pm--Will follow 2. B6IE--KHepxm Glargine today as : 20 units QHS and L6 TIDAC-Please change ISS correction to 2 units per 50 >150--Will follow Please page with questions [phone] Patient seen and examined, plan discussed with Dr Quevedo Signature/Cosignature/Attestat ion:Attending AttestationI saw and evaluated the patient. I personally obtainedthe judge and critical portions of the history and physical exam or wasphysically present for judge and critical portions performed by theresident/fellow. I reviewed the resident/fellows documentation and discussedthe patient with the resident/fellow. I agree with the resident/fellowsmedical decision making as documented in the residents note.I personally evaluated the patient (as noted in the above attestation) [id number] Electronic Signatures:Starr Quevedo) (Signed 02-Apr-2018 10:02)Authored: Signature/Cosignature/Attestat ionCo-Signer: Service, Subjective Data, Objective Data, Assessment and Plan,Signature/Cosignature/Att estationHasmukh Stephenson (Resident)) (Signed 01-Apr-2018 15:26)Authored: Service, Subjective Data, Objective Data, Assessment and Plan,Signature/Cosignature/Att estation Last Updated: 02-Apr-2018 10:02 by Starr Quevedo) Normal [facility] Discharge Mfeicbz6yq 11-14-2 018 Protein mass conc Discharge Orders:Ant icipated Discharge Date: Anticipated Discharge [id number] Problem List: Prelim Disch Dx: History of [facility]'s disease: Catalog Name: Personal history of otherendocrine, nutritional and metabolic disease Pulmonary embolism, bilateral: Catalog Name: Other pulmonary embolismwithout acute cor pulmonale S/P IVC filter: Onset Date: 23-Mar-2018, Catalog Name: Presence of othervascular implants and grafts, Description: by Severiano Stapleton at [facility] S/P CABG x 3: Onset Date: 31-Mar-2018, Catalog Name: Presence ofaortocoronary bypass graft, Description: by Jc Gaston at [facility] CAD (coronary artery disease): Catalog Name: Atherosclerotic heart diseaseof [place] coronary artery without angina pectoris Significant Events:Surgical Procedure: Clinical Events This Visit, 31-Mar-2018, CABG x 3;-REIS toLAD;-SVG to PDA;-SVG to Diag ;Endoscopic harvest of right saphenous vein.Influenza- Influenza Virus: Immunizations, 20-Mar-2018 Hospital Providers:Provider RoleProvider Name Jc Hunter DNAR: DNAR Statusnone Activity:Other activity instructions: You have been referred to cardiac rehab, as anoutpatient. After your discharge from the hospital and home recovery period,you will have your follow up visit with your wood heel cementer. They will clear youto exercise and further refer you to an outpatient cardiac rehab facility. Labs 1: Lab Test(s)Basic Metabolic Panel, CBC, Magnesium Date To Be DrawnOnce the week following discharge by home care Call Results ToDr. Sal Sabillon and Dr. Levi Pisano CommentsINRs to be done by [facility] coumadin clinic Oxygen:Other Instructions Incentive spirometer 10x/hr while awake. Additional Orders: Blood Glucose Monitoringbefore meals and at bedtime; keep a log and take toendocrine/PCP follow-ups Vital Signsevery visit and as needed Weightdaily weights; keep a log and take to cardiology appt Call Provider If (Homegoing Patients):Any new concerning symptoms. CABG / Valve:Activity:- Continue to increase activity and use incentive spirometer, cough and deepbreathing. - Pace activities as tolerated. Avoid heavy physical exertion and lifting.Balance rest periods with activity. - All refills will be obtained from the Primary Care Physician or Molding Engineer. - For chest tightness or pain, extreme shortness of breath, coughing up frothysputum or fainting. GO DIRECTLY TO THE EMERGENCY ROOM OR CALL 911 IF YOU HAVEANY OF THESE SYMPTOMS. - No pushing, pulling, or lifting objects greater than 10 pounds for 3 months. - MAY shower. - MAY NOT drive for 4 to 6 weeks, until follow up visit with the surgeon. - Maintain a daily weight log. Use same scale, before breakfast, after voiding. Wound Care Instructions:- Cleanse incisions with soap and water daily. No dressing, leave open to air.No lotions, creams or tub soaks. Call Provider If:- Redness, drainage or other problems with incisions, notify the CardiacSurgeon. - Signs and symptoms of Heart Failure: call your Molding Engineer if you haveweight gain of 3 pounds or more in less than 3 days; shortness of breath atrest, with activity, or when lying flat; dizziness or fainting. Notify Cardiac Surgeon's office of any readmission to the hospital beforefollow-up appointment with Cardiac Surgeon. Diet: DietAdult Diabetic, Cardiac Hospital Course (Home Care/Gold Form):Hospital Course: Hospital Course: include significant abnormal lab [id number] yo WM with no prior history of CAD, who has a past medical history of HTN,HLD, T2DM, [facility] disease, hypothyroidism, COPD, AKASH on CPAP, prostate Spring/p prostatectomy in 2012, and psoriasis who was transferred to [facility] from [facility] on 03/18 for CABG eval. [place] and dyspnea. He as found to havebilat PEs, was started on Heparin gtt, and transferred to [facility]. He wasfound to have a troponin leak at 2.25. Cardiology was consulted and the patientwas diagnosed with ACS, NSTEMI. He underwent a TTE and cath. He had normal EF,mild AI, and triple vessel CAD so was transferred to [facility] for CABG eval.Pulm consulted for PE workup. 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 03/23/2018 OPERATION/PROCEDURE: by Severiano Balor vena cava filter. 03/31/18 OPERATION/PROCEDURE: by Dr. 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 Gaston for unprovoked PEs asper Pulmonary recs; needs at least 6 months of anticoagulation; [facility]- PT recs home with PT- anticipate discharge home with homebirth midwife and PT- clinical systems educator met with patient 04/07 to discuss discharge instructionsand care- patient had no complaints at discharge and all questions were answered _ HISTORYPMH: HTN, HLD, T2DM, [facility]'s disease, hypothyroidism, COPD, AKASH on CPAP,prostate ca s/p prostatectomy in 2012, psoriasis, remote hepatitis B, priorGERD, lumbar Degenerative disk disease, arthritis, kidney stones (current,small), cataract, plantar fasciitis PSH: prostatectomy 2012, R cataract surgery, cholecystectomy, appendectomy,sinus surgery, vasectomy, bilat carpal tunnel release surgery, ganglion cystremoval from hands, cystoscopy 2 weeks ago for microscopic hematuria, rootcanal 2 weeks ago. 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 NKDA Preadmission Home Meds:asa 81mg dailycalcium 600+ D3 1 tab dailycitalopram 20mg dailycoenzyme Q10 100mg dailyfludrocortisone 0.1mg dailyhydrocortisone 20mg BIDibuprofen 600mg BIDlevothyroxine 150mcg dailylisinopril 20mg dailymetformin 500mg BIDMV dailyOmega-3 fatty acids fish oil 1 cap dailyomeprazole 40mg dailyropinirole 8mg dailysimvastatin 20mg daily Infectious Disease: PPD Statusnot given MRSAno VREno C. Diffno Other Resistant Organismno Isolation Typenone Home Care Orders:Face to Face Certification:Home Care Services Needed: yesHome Care Agency: Home Team Skilled Disciplines Ordered: RN/GLOBAL PRODUCT MANAGER, PTFace to Face Encounter Completed: yesDate of Encounter: [id number] Necessity for Homecare (based on clinical findings):Short-term alf is needed to monitor for signs and symptoms ofdecomposition/adverse events as s/p cardiac surgery. Patient at high risk forre-hospitalization.Physical therapy services needed to restore ability to walk without support andestablish home exercise program as patient is at high risk for falls.Homebound Status: homeboundHomebound Due to::Patient with recent cardiac surgery. Patient experiences dyspnea with minimalexertion. Ambulates limited distance.Patient has poor endurance.The totality of these findings support a considerable and taxing effort toleave home due to limited mobility and pain.Also unable to drive for 1 month due to sternal precautions.Face to Face Completed and Home Care Orders Reviewed: I certify that thispatient is under my care. I have reviewed the information included in the faceto face and certify that the home care services ordered are medically necessaryfor this patient. Home Care Services: Home Care Skilled ServiceCABG carepath, diabetes management, follow upteaching, labs, medication, new diagnosis teaching, Rehab (PT/OT/SP eval andtreat), weight check, wound care CABG: First Home Care VisitHome Care to determine Diabetes Management: First Home Care VisitHome Care to determine Teaching: First Home Care VisitHome Care to determine Lab Instructionsplease see lab orders Med Compliance: First Home Care VisitHome Care to determine New Diagnosis: First Home Care VisitHome Care to determine Rehab: First Home Care VisitHome Care to determine Weight Check: First Home Care VisitHome Care to determine Wound Care: First Home Care VisitHome Care to determine Provider FINAL REVIEW of Orders:Final Review: Final Review of Medication Reconciliation and Orders Completedby PA Reviewing ProviderTaylor ZACK Milligan at 07-Apr-2018 14:22:59 Name/Contact Info for Questions About Discharge OrdersDr Gaston's [phone] Appointments:Coumadin (Warfarin) Follow-Up Monitoring: Physician/Dept/[facility] Coumadin clinic Date/Time next PT/INR [id number] 13:45 Phone [phone]; [address] [facility] [address] Please bring insurancecard, drivers license, and medication list CommentsPlease arrive at 1:45 PM for your appt. goal INR 2-3; need at least6 months of coumadin for PE; Dr Pisano is managing Follow-Up Appointment 01: Physician/Dept/Evgeny Gaston - cardiac surgeon Scheduled Date/[id number] 14:00 [facility] [address] [place], [place] [address] [address] - 2pm appointment [facility] [address], [address] Phone NumberDr Bautista office [phone] Follow-Up Appointment 02: Physician/Dept/Trell. RACHAEL Purvis Scheduled Date/[id number] 11:[address] [place] [address] [place]. [address] Phone [phone] CommentsPlease arrive 10-15 minutes early, bring photo ID, insurance card,discharge summary, and list of current medications and dosages. If unable tokeep this appointment, please call to cancel. Follow-Up Appointment 03: Physician/Dept/ServiceDr. Levi Pisano, Cardiology Scheduled Date/[id number] 14:30 [id number] [facility] [address]. [address] [phone] Phone [phone] CommentsPlease arrive 10-15 minutes early, bring photo ID, insurance card,discharge summary, and list of current medications and dosages. If unable tokeep this appointment, please call to cancel. Follow-Up Appointment 04: Physician/Dept/ServiceDr. Xavier Lake, Endocrinology Scheduled Date/[id number] 09:40 [address] [place]. [address] Phone [phone] CommentsPlease arrive 10-15 minutes early, bring photo ID, insurance card,discharge summary, and list of current medications and dosages. If unable tokeep this appointment, please call to cancel. Follow-Up Appointment 05: Physician/Dept/ServiceDr. Severiano Stapleton, Vascular Surgery Scheduled Date/[id number] 15:[address] [address] Phone [phone] CommentsPlease arrive 10-15 minutes early, bring photo ID, insurance card,discharge summary, and list of current medications and dosages. If unable tokeep this appointment, please call to cancel. Electronic Signatures:Mary Munroe (LOAN SERVICES PROFESSIONAL-REPLANTER) (Signed 06-Apr-2018 18:53)Authored: Discharge Orders, CABG / Valve, Hospital Course (Home Care/GoldForm), Home Care Orders, Provider FINAL REVIEW of Orders, AppointmentsLillie Elder (CLIN COOR) (Signed 01-Apr-2018 14:23)Authored: Discharge Orders, Gold Form - E Commerce Marketing Manager Karolina Goode (RN) (Signed 02-Apr-2018 13:41)Authored: Discharge OrdersMonet Alcaraz (PT SVS REP) (Signed 07-Apr-2018 14:04)Authored: Alexandra Correa (PAC) (Signed 07-Apr-2018 14:22)Authored: Discharge Orders, CABG / Valve, Hospital Course (Home Care/GoldForm), Home Care Orders, Provider FINAL REVIEW of Orders, Appointments Last Updated: 07-Apr-2018 14:22 by Alexandra Milligan (PAC) Normal [facility] GLUCOSE-POCTon 04-01-2018 Glucose mass conc 174 mg/dL High [address] [place] [address] Comment on above: Performed By: #### E MRAD ####NO LOCATION NEEDED Glucose mass conc 152 mg/dL [address] Comment on above: Result Comment: Glu2 : Fingertip - [place]illar Performed By: #### E MRAD ####NO LOCATION NEEDED Glucose mass conc 181 mg/dL [address] Comment on above: Result Comment: Glu2 : [place]ing[place] - [place]illar Performed By: #### E MRAD ####NO LOCATION NEEDED Glucose mass conc 228 mg/dL [address] Comment on above: Result Comment: Glu2 : [place]ing[place] - [place]illar Performed By: #### E MRAD ####NO LOCATION NEEDED Glucose mass conc 168 mg/dL [address] Comment on above: Performed By: #### E MRAD ####NO LOCATION NEEDED Glucose mass conc 175 mg/dL [address] Comment on above: Performed By: #### E MRAD ####NO LOCATION NEEDED Glucose mass conc 197 mg/dL [address] Comment on above: Performed By: #### E MRAD ####NO LOCATION NEEDED MAGNESIUMon 04-01-2018 Magnesium mass conc 2.15 mg/dL Normal 1.60 - 2.40 [facility] Comment on above: Performed By: #### E MRAD ####NO LOCATION NEEDED Magnesium mass conc 2.30 mg/dL Normal 1.60 - 2.40 [facility] Comment on above: Performed By: #### E MRAD ####NO LOCATION NEEDED RENAL FUNCTION PANELon 04-01 Albumin mass conc 3.7 g/dL Normal 3.4 - 5.0 [facility] Comment on above: Performed By: #### E MRAD ####NO LOCATION NEEDED Anion gap 3 molar conc 11 mmol/L Normal 10 - 20 [facility] Comment on above: Performed By: #### E MRAD ####NO LOCATION NEEDED Calcium mass conc 8.8 mg/dL Normal 8.6 - 10.6 [facility] Comment on above: Performed By: #### E MRAD ####NO LOCATION NEEDED Chloride molar conc 99 mmol/L Normal 98 - 107 [facility] Comment on above: Performed By: #### E MRAD ####NO LOCATION NEEDED Creatinine mass conc 1.35 mg/dL High 0.50 - 1.30 [facility] Comment on above: Performed By: #### E MRAD ####NO LOCATION NEEDED GFR- AM. 64 mL/min/1.73m2 Normal >60 [facility] Comment on above: Result Comment: CALC ULATIONS OF ESTIMATED GFR ARE PERFORMED USING THE MDRD STUDY EQUATION FOR THE IDMS-TRACEABLE CREATININE METHODS. CLIN CHEM 2007;53:766-72 Performed By: #### E MRAD ####NO LOCATION NEEDED GFR-NON AM. 53 mL/min/1.73m2 Abnormal >60 [facility] Comment on above: Performed By: #### E MRAD ####NO LOCATION NEEDED Glucose mass conc 169 mg/dL High 74 - 99 [facility] Comment on above: Performed By: #### E MRAD ####NO LOCATION NEEDED HCO3 molar conc (Bld) 28 mmol/L Normal 21 - 32 [facility] Comment on above: Performed By: #### E MRAD ####NO LOCATION NEEDED Phosphate mass conc 3.3 mg/dL Normal 2.5 - 4.9 [facility] Comment on above: Result Comment: The performance characteristics of phosphorus testing in heparinized plasma have been validated by the individual laboratory site where testing is performed. Testing on heparinized plasma is not approved by the FDA; however, such approval is not necessary. Performed By: #### E MRAD ####NO LOCATION NEEDED Potassium molar conc 4.2 mmol/L Normal 3.5 - 5.3 [facility] Comment on above: Performed By: #### E MRAD ####NO LOCATION NEEDED Sodium molar conc 134 mmol/L Low 136 - 145 [facility] Comment on above: Performed By: #### E MRAD ####NO LOCATION NEEDED Urea nitrogen mass conc 20 mg/dL Normal 6 - 23 [facility] Comment on above: Performed By: #### E MRAD ####NO LOCATION NEEDED Albumin mass conc Canceled Normal [facility] Comment on above: Order Comment: TEST RENAL FUNCTION PANEL WAS CANCELLED, 04/01/2018 07:29 DUPLICATE ORDER. Performed By: #### E MRAD ####NO LOCATION NEEDED Anion gap 3 molar conc Canceled Normal [facility] Comment on above: Order Comment: TEST RENAL FUNCTION PANEL WAS CANCELLED, 04/01/2018 07:29 DUPLICATE ORDER. Performed By: #### E MRAD ####NO LOCATION NEEDED Calcium mass conc Canceled Normal [facility] Comment on above: Order Comment: TEST RENAL FUNCTION PANEL WAS CANCELLED, 04/01/2018 07:29 DUPLICATE ORDER. Performed By: #### E MRAD ####NO LOCATION NEEDED Chloride molar conc Canceled Normal [facility] Comment on above: Order Comment: TEST RENAL FUNCTION PANEL WAS CANCELLED, 04/01/2018 07:29 DUPLICATE ORDER. Performed By: #### E MRAD ####NO LOCATION NEEDED Creatinine mass conc Canceled Normal [facility] Comment on above: Order Comment: TEST RENAL FUNCTION PANEL WAS CANCELLED, 04/01/2018 07:29 DUPLICATE ORDER. Performed By: #### E MRAD ####NO LOCATION NEEDED GFR- AM. Canceled Normal [facility] Comment on above: Order Comment: TEST RENAL FUNCTION PANEL WAS CANCELLED, 04/01/2018 07:29 DUPLICATE ORDER. Result Comment: CALC ULATIONS OF ESTIMATED GFR ARE PERFORMED USING THE MDRD STUDY EQUATION FOR THE IDMS-TRACEABLE CREATININE METHODS. CLIN CHEM 2007;53:766-72 Performed By: #### E MRAD ####NO LOCATION NEEDED GFR-NON AM. Canceled Normal [facility] Comment on above: Order Comment: TEST RENAL FUNCTION PANEL WAS CANCELLED, 04/01/2018 07:29 DUPLICATE ORDER. Performed By: #### E MRAD ####NO LOCATION NEEDED Glucose mass conc Canceled Normal [facility] Comment on above: Order Comment: TEST RENAL FUNCTION PANEL WAS CANCELLED, 04/01/2018 07:29 DUPLICATE ORDER. Performed By: #### E MRAD ####NO LOCATION NEEDED HCO3 molar conc (Bld) Canceled Normal [facility] Comment on above: Order Comment: TEST RENAL FUNCTION PANEL WAS CANCELLED, 04/01/2018 07:29 DUPLICATE ORDER. Performed By: #### E MRAD ####NO LOCATION NEEDED Phosphate mass conc Canceled Normal [facility] Comment on above: Order Comment: TEST RENAL FUNCTION PANEL WAS CANCELLED, 04/01/2018 07:29 DUPLICATE ORDER. Result Comment: The performance characteristics of phosphorus testing in heparinized plasma have been validated by the individual laboratory site where testing is performed. Testing on heparinized plasma is not approved by the FDA; however, such approval is not necessary. Performed By: #### E MRAD ####NO LOCATION NEEDED Potassium molar conc Canceled Normal [facility] Comment on above: Order Comment: TEST RENAL FUNCTION PANEL WAS CANCELLED, 04/01/2018 07:29 DUPLICATE ORDER. Performed By: #### E MRAD ####NO LOCATION NEEDED Sodium molar conc Canceled Normal [facility] Comment on above: Order Comment: TEST RENAL FUNCTION PANEL WAS CANCELLED, 04/01/2018 07:29 DUPLICATE ORDER. Performed By: #### E MRAD ####NO LOCATION NEEDED Urea nitrogen mass conc Canceled Normal [facility] Comment on above: Order Comment: TEST RENAL FUNCTION PANEL WAS CANCELLED, 04/01/2018 07:29 DUPLICATE ORDER. Performed By: #### E MRAD ####NO LOCATION NEEDED Albumin mass conc 3.7 g/dL Normal 3.4 - 5.0 [facility] Comment on above: Performed By: #### E MRAD ####NO LOCATION NEEDED Anion gap 3 molar conc 15 mmol/L Normal 10 - 20 [facility] Comment on above: Performed By: #### E MRAD ####NO LOCATION NEEDED Calcium mass conc 8.7 mg/dL Normal 8.6 - 10.6 [facility] Comment on above: Performed By: #### E MRAD ####NO LOCATION NEEDED Chloride molar conc 100 mmol/L Normal 98 - 107 [facility] Comment on above: Performed By: #### E MRAD ####NO LOCATION NEEDED Creatinine mass conc 1.30 mg/dL Normal 0.50 - 1.30 [facility] Comment on above: Performed By: #### E MRAD ####NO LOCATION NEEDED GFR- AM. 67 mL/min/1.73m2 Normal >60 [facility] Comment on above: Result Comment: CALC ULATIONS OF ESTIMATED GFR ARE PERFORMED USING THE MDRD STUDY EQUATION FOR THE IDMS-TRACEABLE CREATININE METHODS. CLIN CHEM 2007;53:766-72 Performed By: #### E MRAD ####NO LOCATION NEEDED GFR-NON AM. 55 mL/min/1.73m2 Abnormal >60 [facility] Comment on above: Performed By: #### E MRAD ####NO LOCATION NEEDED Glucose mass conc 167 mg/dL High 74 - 99 [facility] Comment on above: Performed By: #### E MRAD ####NO LOCATION NEEDED HCO3 molar conc (Bld) 26 mmol/L Normal 21 - 32 [facility] Comment on above: Performed By: #### E MRAD ####NO LOCATION NEEDED Phosphate mass conc 4.0 mg/dL Normal 2.5 - 4.9 [facility] Comment on above: Result Comment: The performance characteristics of phosphorus testing in heparinized plasma have been validated by the individual laboratory site where testing is performed. Testing on heparinized plasma is not approved by the FDA; however, such approval is not necessary. Performed By: #### E MRAD ####NO LOCATION NEEDED Potassium molar conc 4.4 mmol/L Normal 3.5 - 5.3 [facility] Comment on above: Performed By: #### E MRAD ####NO LOCATION NEEDED Sodium molar conc 137 mmol/L Normal 136 - 145 [facility] Comment on above: Performed By: #### E MRAD ####NO LOCATION NEEDED Urea nitrogen mass conc 20 mg/dL Normal 6 - 23 [facility] Comment on above: Performed By: #### E MRAD ####NO LOCATION NEEDED TH CHEST 1 VIEWon 04-01-2018 TH CHEST 1 VIEW Name: DON ELKINS STUDY:TH CHEST 1 VIEW; 04/01/2018 3:56 am INDICATION:Signs/Symptoms: CT surgey. COMPARISON:03/31/2018 ORDERING CLINICIAN:GERMAN JACK FINDINGS:ET tube is terminating at the level of clavicle heads. Enteric tubeis in place with the tip not included. Right IJ [place] catheter isterminating in the right main pulmonary artery. Left-sided basilarchest tube is again identified. Patient is status post mediansternotomy. The cardiac silhouette size is enlarged, unchanged. Persistentbibasilar opacity, right more than left. Low lung volumes andbronchovascular crowding with no alejandro edema. No sizable pneumothoraxwith No acute osseous abnormality. IMPRESSION:1. Postsurgical changes and medical appliances as described above.2. Persistent bibasilar opacity, right more than left likely due toatelectasis and small effusion.3. Unchanged enlarged cardiac silhouette size. Electronically signed by: EDYTA ARIAS MD Normal [facility] ACT-HIGH RANGEon 03-31-2018 ACT-HIGH RANGE 111 SECONDS Normal 91 - 152 [facility] Comment on above: Performed By: #### E MRAD ####NO LOCATION NEEDED ACT-HIGH RANGE 456 SECONDS High 91 - 152 [facility] Comment on above: Performed By: #### E MRAD ####NO LOCATION NEEDED ACT-HIGH RANGE 415 SECONDS High 91 - 152 [facility] Comment on above: Performed By: #### E MRAD ####NO LOCATION NEEDED ACT-HIGH RANGE 555 SECONDS High 91 - 152 [facility] Comment on above: Performed By: #### E MRAD ####NO LOCATION NEEDED ACT-HIGH RANGE 440 SECONDS High 91 - 152 [facility] Comment on above: Performed By: #### E MRAD ####NO LOCATION NEEDED ACT-HIGH RANGE 437 SECONDS High 91 - 152 [facility] Comment on above: Performed By: #### E MRAD ####NO LOCATION NEEDED ACT-HIGH RANGE 117 SECONDS Normal 91 - 152 [facility] Comment on above: Performed By: #### E MRAD ####NO LOCATION NEEDED ARTERIAL BLOOD GASon 018 BASE EXCESS-BLOOD -3.2 mmol/L Low -2.0 - 3.0 [facility] Comment on above: Performed By: #### E MRAD ####NO LOCATION NEEDED Oxygen ppres (BldA) 63 mm[Hg] Low 85 - 95 [facility] Comment on above: Performed By: #### E MRAD ####NO LOCATION NEEDED PCO2 51 mmHg High 38 - 42 [facility] Comment on above: Performed By: #### E MRAD ####NO LOCATION NEEDED pH (Bld) 7.28 [pH] Low 7.38 - 7.42 [facility] Comment on above: Performed By: #### E MRAD ####NO LOCATION NEEDED RBC Auto #/vol (Bld) 24.0 mmol/L Normal 22.0 - 26.0 [facility] Comment on above: Performed By: #### E MRAD ####NO LOCATION NEEDED SO2 91 % Low 94 - 100 [facility] Comment on above: Performed By: #### E MRAD ####NO LOCATION NEEDED ARTERIAL FULL PANELon 2017 Anion gap 3 molar conc 9 mmol/L Low 10 - 25 [facility] Comment on above: Performed By: #### E MRAD ####NO LOCATION NEEDED BASE EXCESS-BLOOD 0.3 mmol/L Normal -2.0 - 3.0 [facility] Comment on above: Performed By: #### E MRAD ####NO LOCATION NEEDED CALCIUM,IONIZED 1.09 mmol/L Low 1.10 - 1.33 [facility] Comment on above: Performed By: #### E MRAD ####NO LOCATION NEEDED Chloride molar conc 103 mmol/L Normal 98 - 107 [facility] Comment on above: Performed By: #### E MRAD ####NO LOCATION NEEDED Glucose mass conc 159 mg/dL High 74 - 99 [facility] Comment on above: Performed By: #### E MRAD ####NO LOCATION NEEDED Hematocrit Auto Volume Fraction (Bld) 32.0 % Low 41.0 - 52.0 [facility] Comment on above: Performed By: #### E MRAD ####NO LOCATION NEEDED HGB,CALCULATED 10.9 g/dL Low 13.5 - 17.5 [facility] Comment on above: Performed By: #### E MRAD ####NO LOCATION NEEDED Lactate molar conc 2.4 mmol/L High 0.4 - 2.0 [facility] Comment on above: Performed By: #### E MRAD ####NO LOCATION NEEDED Oxygen ppres (BldA) 82 mm[Hg] Low 85 - 95 [facility] Comment on above: Performed By: #### E MRAD ####NO LOCATION NEEDED PCO2 42 mmHg Normal 38 - 42 [facility] Comment on above: Performed By: #### E MRAD ####NO LOCATION NEEDED pH (Bld) 7.39 [pH] Normal 7.38 - 7.42 [facility] Comment on above: Performed By: #### E MRAD ####NO LOCATION NEEDED Potassium molar conc 4.5 mmol/L Normal 3.5 - 5.3 [facility] Comment on above: Performed By: #### E MRAD ####NO LOCATION NEEDED RBC Auto #/vol (Bld) 25.4 mmol/L Normal 22.0 - 26.0 [facility] Comment on above: Performed By: #### E MRAD ####NO LOCATION NEEDED SO2 98 % Normal 94 - 100 [facility] Comment on above: Performed By: #### E MRAD ####NO LOCATION NEEDED Sodium molar conc 133 mmol/L Low 136 - 145 [facility] Comment on above: Performed By: #### E MRAD ####NO LOCATION NEEDED Anion gap 3 molar conc 11 mmol/L Normal 10 - 25 [facility] Comment on above: Performed By: #### E MRAD ####NO LOCATION NEEDED BASE EXCESS-BLOOD -0.5 mmol/L Normal -2.0 - 3.0 [facility] Comment on above: Performed By: #### E MRAD ####NO LOCATION NEEDED CALCIUM,IONIZED 1.13 mmol/L Normal 1.10 - 1.33 [facility] Comment on above: Performed By: #### E MRAD ####NO LOCATION NEEDED Chloride molar conc 104 mmol/L Normal 98 - 107 [facility] Comment on above: Performed By: #### E MRAD ####NO LOCATION NEEDED Glucose mass conc 169 mg/dL High 74 - 99 [facility] Comment on above: Performed By: #### E MRAD ####NO LOCATION NEEDED Hematocrit Auto Volume Fraction (Bld) 32.0 % Low 41.0 - 52.0 [facility] Comment on above: Performed By: #### E MRAD ####NO LOCATION NEEDED HGB,CALCULATED 10.9 g/dL Low 13.5 - 17.5 [facility] Comment on above: Performed By: #### E MRAD ####NO LOCATION NEEDED Lactate molar conc 2.5 mmol/L High 0.4 - 2.0 [facility] Comment on above: Performed By: #### E MRAD ####NO LOCATION NEEDED Oxygen ppres (BldA) 72 mm[Hg] Low 85 - 95 [facility] Comment on above: Performed By: #### E MRAD ####NO LOCATION NEEDED PCO2 43 mmHg High 38 - 42 [facility] Comment on above: Performed By: #### E MRAD ####NO LOCATION NEEDED pH (Bld) 7.37 [pH] Low 7.38 - 7.42 [facility] Comment on above: Performed By: #### E MRAD ####NO LOCATION NEEDED Potassium molar conc 4.8 mmol/L Normal 3.5 - 5.3 [facility] Comment on above: Performed By: #### E MRAD ####NO LOCATION NEEDED RBC Auto #/vol (Bld) 24.9 mmol/L Normal 22.0 - 26.0 [facility] Comment on above: Performed By: #### E MRAD ####NO LOCATION NEEDED SO2 96 % Normal 94 - 100 [facility] Comment on above: Performed By: #### E MRAD ####NO LOCATION NEEDED Sodium molar conc 135 mmol/L Low 136 - 145 [facility] Comment on above: Performed By: #### E MRAD ####NO LOCATION NEEDED Anion gap 3 molar conc 14 mmol/L Normal 10 - 25 [facility] Comment on above: Performed By: #### E MRAD ####NO LOCATION NEEDED BASE EXCESS-BLOOD -1.6 mmol/L Normal -2.0 - 3.0 [facility] Comment on above: Performed By: #### E MRAD ####NO LOCATION NEEDED CALCIUM,IONIZED 1.19 mmol/L Normal 1.10 - 1.33 [facility] Comment on above: Performed By: #### E MRAD ####NO LOCATION NEEDED Chloride molar conc 104 mmol/L Normal 98 - 107 [facility] Comment on above: Performed By: #### E MRAD ####NO LOCATION NEEDED Glucose mass conc 184 mg/dL High 74 - 99 [facility] Comment on above: Performed By: #### E MRAD ####NO LOCATION NEEDED Hematocrit Auto Volume Fraction (Bld) 32.0 % Low 41.0 - 52.0 [facility] Comment on above: Performed By: #### E MRAD ####NO LOCATION NEEDED HGB,CALCULATED 10.9 g/dL Low 13.5 - 17.5 [facility] Comment on above: Performed By: #### E MRAD ####NO LOCATION NEEDED Lactate molar conc 2.9 mmol/L High 0.4 - 2.0 [facility] Comment on above: Performed By: #### E MRAD ####NO LOCATION NEEDED Oxygen ppres (BldA) 79 mm[Hg] Low 85 - 95 [facility] Comment on above: Performed By: #### E MRAD ####NO LOCATION NEEDED PCO2 45 mmHg High 38 - 42 [facility] Comment on above: Performed By: #### E MRAD ####NO LOCATION NEEDED pH (Bld) 7.34 [pH] Low 7.38 - 7.42 [facility] Comment on above: Performed By: #### E MRAD ####NO LOCATION NEEDED Potassium molar conc 5.2 mmol/L Normal 3.5 - 5.3 [facility] Comment on above: Performed By: #### E MRAD ####NO LOCATION NEEDED RBC Auto #/vol (Bld) 24.3 mmol/L Normal 22.0 - 26.0 [facility] Comment on above: Performed By: #### E MRAD ####NO LOCATION NEEDED SO2 97 % Normal 94 - 100 [facility] Comment on above: Performed By: #### E MRAD ####NO LOCATION NEEDED Sodium molar conc 137 mmol/L Normal 136 - 145 [facility] Comment on above: Performed By: #### E MRAD ####NO LOCATION NEEDED Anion gap 3 molar conc 12 mmol/L Normal 10 - 25 [facility] Comment on above: Performed By: #### E MRAD ####NO LOCATION NEEDED BASE EXCESS-BLOOD -1.3 mmol/L Normal -2.0 - 3.0 [facility] Comment on above: Performed By: #### E MRAD ####NO LOCATION NEEDED CALCIUM,IONIZED 1.21 mmol/L Normal 1.10 - 1.33 [facility] Comment on above: Performed By: #### E MRAD ####NO LOCATION NEEDED Chloride molar conc 104 mmol/L Normal 98 - 107 [facility] Comment on above: Performed By: #### E MRAD ####NO LOCATION NEEDED Glucose mass conc 177 mg/dL High 74 - 99 [facility] Comment on above: Performed By: #### E MRAD ####NO LOCATION NEEDED Hematocrit Auto Volume Fraction (Bld) 29.0 % Low 41.0 - 52.0 [facility] Comment on above: Performed By: #### E MRAD ####NO LOCATION NEEDED HGB,CALCULATED 9.9 g/dL Low 13.5 - 17.5 [facility] Comment on above: Performed By: #### E MRAD ####NO LOCATION NEEDED Lactate molar conc 2.7 mmol/L High 0.4 - 2.0 [facility] Comment on above: Performed By: #### E MRAD ####NO LOCATION NEEDED Oxygen ppres (BldA) 67 mm[Hg] Low 85 - 95 [facility] Comment on above: Performed By: #### E MRAD ####NO LOCATION NEEDED PCO2 50 mmHg High 38 - 42 [facility] Comment on above: Performed By: #### E MRAD ####NO LOCATION NEEDED pH (Bld) 7.31 [pH] Low 7.38 - 7.42 [facility] Comment on above: Performed By: #### E MRAD ####NO LOCATION NEEDED Potassium molar conc 5.1 mmol/L Normal 3.5 - 5.3 [facility] Comment on above: Performed By: #### E MRAD ####NO LOCATION NEEDED RBC Auto #/vol (Bld) 25.2 mmol/L Normal 22.0 - 26.0 [facility] Comment on above: Performed By: #### E MRAD ####NO LOCATION NEEDED SO2 94 % Normal 94 - 100 [facility] Comment on above: Performed By: #### E MRAD ####NO LOCATION NEEDED Sodium molar conc 136 mmol/L Normal 136 - 145 [facility] Comment on above: Performed By: #### E MRAD ####NO LOCATION NEEDED Anion gap 3 molar conc 12 mmol/L Normal 10 - 25 [facility] Comment on above: Performed By: #### E MRAD ####NO LOCATION NEEDED BASE EXCESS-BLOOD -2.7 mmol/L Low -2.0 - 3.0 [facility] Comment on above: Performed By: #### E MRAD ####NO LOCATION NEEDED CALCIUM,IONIZED 1.16 mmol/L Normal 1.10 - 1.33 [facility] Comment on above: Performed By: #### E MRAD ####NO LOCATION NEEDED Chloride molar conc 105 mmol/L Normal 98 - 107 [facility] Comment on above: Performed By: #### E MRAD ####NO LOCATION NEEDED FIO2 67 % Normal [facility] Comment on above: Performed By: #### E MRAD ####NO LOCATION NEEDED Glucose mass conc 198 mg/dL High 74 - 99 [facility] Comment on above: Performed By: #### E MRAD ####NO LOCATION NEEDED Hematocrit Auto Volume Fraction (Bld) 30.0 % Low 41.0 - 52.0 [facility] Comment on above: Performed By: #### E MRAD ####NO LOCATION NEEDED HGB,CALCULATED 10.2 g/dL Low 13.5 - 17.5 [facility] Comment on above: Performed By: #### E MRAD ####NO LOCATION NEEDED Lactate molar conc 3.3 mmol/L High 0.4 - 2.0 [facility] Comment on above: Performed By: #### E MRAD ####NO LOCATION NEEDED Oxygen ppres (BldA) 97 mm[Hg] High 85 - 95 [facility] Comment on above: Performed By: #### E MRAD ####NO LOCATION NEEDED PCO2 40 mmHg Normal 38 - 42 [facility] Comment on above: Performed By: #### E MRAD ####NO LOCATION NEEDED pH (Bld) 7.36 [pH] Low 7.38 - 7.42 [facility] Comment on above: Performed By: #### E MRAD ####NO LOCATION NEEDED Potassium molar conc 5.1 mmol/L Normal 3.5 - 5.3 [facility] Comment on above: Performed By: #### E MRAD ####NO LOCATION NEEDED RBC Auto #/vol (Bld) 22.6 mmol/L Normal 22.0 - 26.0 [facility] Comment on above: Performed By: #### E MRAD ####NO LOCATION NEEDED SO2 99 % Normal 94 - 100 [facility] Comment on above: Performed By: #### E MRAD ####NO LOCATION NEEDED Sodium molar conc 134 mmol/L Low 136 - 145 [facility] Comment on above: Performed By: #### E MRAD ####NO LOCATION NEEDED Anion gap 3 molar conc 13 mmol/L Normal 10 - 25 [facility] Comment on above: Performed By: #### A FPA3 ####[id number] [place] [address] BASE EXCESS-BLOOD -3.0 mmol/L Low -2.0 - 3.0 [facility] Comment on above: Performed By: #### A FPA3 ####[id number] [place] [address] CALCIUM,IONIZED 1.16 mmol/L Normal 1.10 - 1.33 [facility] Comment on above: Performed By: #### A FPA3 ####[id number] [place] [address] Chloride molar conc 104 mmol/L Normal 98 - 107 [facility] Comment on above: Performed By: #### A FPA3 ####[id number] [place] [address] FIO2 67 % Normal [facility] Comment on above: Performed By: #### A FPA3 ####[id number] [place] [address] Glucose mass conc 189 mg/dL High 74 - 99 [facility] Comment on above: Performed By: #### A FPA3 ####[id number] [place] [address] Hematocrit Auto Volume Fraction (Bld) 31.0 % Low 41.0 - 52.0 [facility] Comment on above: Performed By: #### A FPA3 ####[id number] [place] [address] HGB,CALCULATED 10.5 g/dL Low 13.5 - 17.5 [facility] Comment on above: Performed By: #### A FPA3 ####[id number] [place] [address] Lactate molar conc 3.9 mmol/L High 0.4 - 2.0 [facility] Comment on above: Performed By: #### A FPA3 ####[id number] [place] [address] Oxygen ppres (BldA) 105 mm[Hg] High 85 - 95 [facility] Comment on above: Performed By: #### A FPA3 ####[id number] [place] [address] PCO2 38 mmHg Normal 38 - 42 [facility] Comment on above: Performed By: #### A FPA3 ####[id number] [place] [address] pH (Bld) 7.37 [pH] Low 7.38 - 7.42 [facility] Comment on above: Performed By: #### A FPA3 ####[id number] [place] [address] Potassium molar conc 5.0 mmol/L Normal 3.5 - 5.3 [facility] Comment on above: Performed By: #### A FPA3 ####[id number] [place] [address] RBC Auto #/vol (Bld) 22.0 mmol/L Normal 22.0 - 26.0 [facility] Comment on above: Performed By: #### A FPA3 ####[id number] [place] [address] SO2 99 % Normal 94 - 100 [facility] Comment on above: Performed By: #### A FPA3 ####[id number] [place] [address] Sodium molar conc 134 mmol/L Low 136 - 145 [facility] Comment on above: Performed By: #### A FPA3 ####[id number] [place] [address] Anion gap 3 molar conc 12 mmol/L Normal 10 - 25 [facility] Comment on above: Performed By: #### A FPA3 ####[id number] [place] [address] BASE EXCESS-BLOOD -4.5 mmol/L Low -2.0 - 3.0 [facility] Comment on above: Performed By: #### A FPA3 ####[id number] [place] [address] CALCIUM,IONIZED 1.28 mmol/L Normal 1.10 - 1.33 [facility] Comment on above: Performed By: #### A FPA3 ####[id number] [place] [address] Chloride molar conc 105 mmol/L Normal 98 - 107 [facility] Comment on above: Performed By: #### A FPA3 ####[id number] [place] [address] FIO2 94 % Normal [facility] Comment on above: Performed By: #### A FPA3 ####[id number] [place] [address] Glucose mass conc 208 mg/dL High 74 - 99 [facility] Comment on above: Performed By: #### A FPA3 ####[id number] [place] [address] Hematocrit Auto Volume Fraction (Bld) 30.0 % Low 41.0 - 52.0 [facility] Comment on above: Performed By: #### A FPA3 ####[id number] [place] [address] HGB,CALCULATED 10.2 g/dL Low 13.5 - 17.5 [facility] Comment on above: Performed By: #### A FPA3 ####[id number] [place] [address] Lactate molar conc 4.0 mmol/L Critically high 0.4 - 2.0 [facility] Comment on above: Performed By: #### A FPA3 ####[id number] [place] [address] Oxygen ppres (BldA) 243 mm[Hg] High 85 - 95 [facility] Comment on above: Performed By: #### A FPA3 ####[id number] [place] [address] PCO2 46 mmHg High 38 - 42 [facility] Comment on above: Performed By: #### A FPA3 ####[id number] [place] [address] pH (Bld) 7.29 [pH] Low 7.38 - 7.42 [facility] Comment on above: Performed By: #### A FPA3 ####[id number] [place] [address] Potassium molar conc 4.8 mmol/L Normal 3.5 - 5.3 [facility] Comment on above: Performed By: #### A FPA3 ####[id number] [place] [address] RBC Auto #/vol (Bld) 22.1 mmol/L Normal 22.0 - 26.0 [facility] Comment on above: Performed By: #### A FPA3 ####[id number] [place] [address] SO2 100 % Normal 94 - 100 [facility] Comment on above: Performed By: #### A FPA3 ####[id number] [place] [address] Sodium molar conc 134 mmol/L Low 136 - 145 [facility] Comment on above: Performed By: #### A FPA3 ####[id number] [place] [address] Anion gap 3 molar conc 11 mmol/L Normal 10 - 25 [facility] Comment on above: Performed By: #### A FPA3 ####[id number] [place] [address] BASE EXCESS-BLOOD -2.9 mmol/L Low -2.0 - 3.0 [facility] Comment on above: Performed By: #### A FPA3 ####[id number] [place] [address] CALCIUM,IONIZED 1.04 mmol/L Low 1.10 - 1.33 [facility] Comment on above: Performed By: #### A FPA3 ####[id number] [place] [address] Chloride molar conc 104 mmol/L Normal 98 - 107 [facility] Comment on above: Performed By: #### A FPA3 ####[id number] [place] [address] FIO2 80 % Normal [facility] Comment on above: Performed By: #### A FPA3 ####[id number] [place] [address] Glucose mass conc 251 mg/dL High 74 - 99 [facility] Comment on above: Performed By: #### A FPA3 ####[id number] [place] [address] Hematocrit Auto Volume Fraction (Bld) 29.0 % Low 41.0 - 52.0 [facility] Comment on above: Performed By: #### A FPA3 ####[id number] [place] [address] HGB,CALCULATED 9.9 g/dL Low 13.5 - 17.5 [facility] Comment on above: Performed By: #### A FPA3 ####[id number] [place] [address] Lactate molar conc 4.0 mmol/L Critically high 0.4 - 2.0 [facility] Comment on above: Performed By: #### A FPA3 ####[id number] [place] [address] Oxygen ppres (BldA) 252 mm[Hg] High 85 - 95 [facility] Comment on above: Performed By: #### A FPA3 ####[id number] [place] [address] PCO2 41 mmHg Normal 38 - 42 [facility] Comment on above: Performed By: #### A FPA3 ####[id number] [place] [address] pH (Bld) 7.35 [pH] Low 7.38 - 7.42 [facility] Comment on above: Performed By: #### A FPA3 ####[id number] [place] [address] Potassium molar conc 6.1 mmol/L Critically high 3.5 - 5.3 [facility] Comment on above: Performed By: #### A FPA3 ####[id number] [place] [address] RBC Auto #/vol (Bld) 22.6 mmol/L Normal 22.0 - 26.0 [facility] Comment on above: Performed By: #### A FPA3 ####[id number] [place] [address] SO2 99 % Normal 94 - 100 [facility] Comment on above: Performed By: #### A FPA3 ####[id number] [place] [address] Sodium molar conc 131 mmol/L Low 136 - 145 [facility] Comment on above: Performed By: #### A FPA3 ####[id number] [place] [address] Anion gap 3 molar conc 12 mmol/L Normal 10 - 25 [facility] Comment on above: Performed By: #### A FPA3 ####[id number] [place] [address] BASE EXCESS-BLOOD -2.2 mmol/L Low -2.0 - 3.0 [facility] Comment on above: Performed By: #### A FPA3 ####[id number] [place] [address] CALCIUM,IONIZED 1.04 mmol/L Low 1.10 - 1.33 [facility] Comment on above: Performed By: #### A FPA3 ####[id number] [place] [address] Chloride molar conc 103 mmol/L Normal 98 - 107 [facility] Comment on above: Performed By: #### A FPA3 ####[id number] [place] [address] FIO2 75 % Normal [facility] Comment on above: Performed By: #### A FPA3 ####[id number] [place] [address] Glucose mass conc 246 mg/dL High 74 - 99 [facility] Comment on above: Performed By: #### A FPA3 ####[id number] [place] [address] Hematocrit Auto Volume Fraction (Bld) 29.0 % Low 41.0 - 52.0 [facility] Comment on above: Performed By: #### A FPA3 ####[id number] [place] [address] HGB,CALCULATED 9.9 g/dL Low 13.5 - 17.5 [facility] Comment on above: Performed By: #### A FPA3 ####[id number] [place] [address] Lactate molar conc 3.8 mmol/L High 0.4 - 2.0 [facility] Comment on above: Performed By: #### A FPA3 ####[id number] [place] [address] Oxygen ppres (BldA) 232 mm[Hg] High 85 - 95 [facility] Comment on above: Performed By: #### A FPA3 ####[id number] [place] [address] PCO2 41 mmHg Normal 38 - 42 [facility] Comment on above: Performed By: #### A FPA3 ####[id number] [place] [address] pH (Bld) 7.36 [pH] Low 7.38 - 7.42 [facility] Comment on above: Performed By: #### A FPA3 ####[id number] [place] [address] Potassium molar conc 6.5 mmol/L Critically high 3.5 - 5.3 [facility] Comment on above: Performed By: #### A FPA3 ####[id number] [place] [address] RBC Auto #/vol (Bld) 23.2 mmol/L Normal 22.0 - 26.0 [facility] Comment on above: Performed By: #### A FPA3 ####[id number] [place] [address] SO2 100 % Normal 94 - 100 [facility] Comment on above: Performed By: #### A FPA3 ####[id number] [place] [address] Sodium molar conc 132 mmol/L Low 136 - 145 [facility] Comment on above: Performed By: #### A FPA3 ####[id number] [place] [address] Anion gap 3 molar conc 11 mmol/L Normal 10 - 25 [facility] Comment on above: Performed By: #### A FPA3 ####[id number] [place] [address] BASE EXCESS-BLOOD -1.8 mmol/L Normal -2.0 - 3.0 [facility] Comment on above: Performed By: #### A FPA3 ####[id number] [place] [address] CALCIUM,IONIZED 1.03 mmol/L Low 1.10 - 1.33 [facility] Comment on above: Performed By: #### A FPA3 ####[id number] [place] [address] Chloride molar conc 103 mmol/L Normal 98 - 107 [facility] Comment on above: Performed By: #### A FPA3 ####[id number] [place] [address] FIO2 75 % Normal [facility] Comment on above: Performed By: #### A FPA3 ####[id number] [place] [address] Glucose mass conc 251 mg/dL High 74 - 99 [facility] Comment on above: Performed By: #### A FPA3 ####[id number] [place] [address] Hematocrit Auto Volume Fraction (Bld) 28.0 % Low 41.0 - 52.0 [facility] Comment on above: Performed By: #### A FPA3 ####[id number] [place] [address] HGB,CALCULATED 9.5 g/dL Low 13.5 - 17.5 [facility] Comment on above: Performed By: #### A FPA3 ####[id number] [place] [address] Lactate molar conc 3.8 mmol/L High 0.4 - 2.0 [facility] Comment on above: Performed By: #### A FPA3 ####[id number] [place] [address] Oxygen ppres (BldA) 312 mm[Hg] High 85 - 95 [facility] Comment on above: Performed By: #### A FPA3 ####[id number] [place] [address] PCO2 46 mmHg High 38 - 42 [facility] Comment on above: Performed By: #### A FPA3 ####[id number] [place] [address] pH (Bld) 7.33 [pH] Low 7.38 - 7.42 [facility] Comment on above: Performed By: #### A FPA3 ####[id number] [place] [address] Potassium molar conc 6.5 mmol/L Critically high 3.5 - 5.3 [facility] Comment on above: Performed By: #### A FPA3 ####[id number] [place] [address] RBC Auto #/vol (Bld) 24.3 mmol/L Normal 22.0 - 26.0 [facility] Comment on above: Performed By: #### A FPA3 ####[id number] [place] [address] SO2 100 % Normal 94 - 100 [facility] Comment on above: Performed By: #### A FPA3 ####[id number] [place] [address] Sodium molar conc 132 mmol/L Low 136 - 145 [facility] Comment on above: Performed By: #### A FPA3 ####[id number] [place] [address] Anion gap 3 molar conc 12 mmol/L Normal 10 - 25 [facility] Comment on above: Performed By: #### A FPA3 ####[id number] [place] [address] BASE EXCESS-BLOOD -0.1 mmol/L Normal -2.0 - 3.0 [facility] Comment on above: Performed By: #### A FPA3 ####[id number] [place] [address] CALCIUM,IONIZED 0.87 mmol/L Low 1.10 - 1.33 [facility] Comment on above: Performed By: #### A FPA3 ####[id number] [place] [address] Chloride molar conc 101 mmol/L Normal 98 - 107 [facility] Comment on above: Performed By: #### A FPA3 ####[id number] [place] [address] FIO2 80 % Normal [facility] Comment on above: Performed By: #### A FPA3 ####[id number] [place] [address] Glucose mass conc 230 mg/dL High 74 - 99 [facility] Comment on above: Performed By: #### A FPA3 ####[id number] [place] [address] Hematocrit Auto Volume Fraction (Bld) 27.0 % Low 41.0 - 52.0 [facility] Comment on above: Performed By: #### A FPA3 ####[id number] [place] [address] HGB,CALCULATED 9.2 g/dL Low 13.5 - 17.5 [facility] Comment on above: Performed By: #### A FPA3 ####[id number] [place] [address] Lactate molar conc 3.1 mmol/L High 0.4 - 2.0 [facility] Comment on above: Performed By: #### A FPA3 ####[id number] [place] [address] Oxygen ppres (BldA) 392 mm[Hg] High 85 - 95 [facility] Comment on above: Performed By: #### A FPA3 ####[id number] [place] [address] PCO2 47 mmHg High 38 - 42 [facility] Comment on above: Performed By: #### A FPA3 ####[id number] [place] [address] pH (Bld) 7.35 [pH] Low 7.38 - 7.42 [facility] Comment on above: Performed By: #### A FPA3 ####[id number] [place] [address] Potassium molar conc 5.1 mmol/L Normal 3.5 - 5.3 [facility] Comment on above: Performed By: #### A FPA3 ####[id number] [place] [address] RBC Auto #/vol (Bld) 25.9 mmol/L Normal 22.0 - 26.0 [facility] Comment on above: Performed By: #### A FPA3 ####[id number] [place] [address] SO2 99 % Normal 94 - 100 [facility] Comment on above: Performed By: #### A FPA3 ####[id number] [place] [address] Sodium molar conc 134 mmol/L Low 136 - 145 [facility] Comment on above: Performed By: #### A FPA3 ####[id number] [place] [address] Anion gap 3 molar conc 14 mmol/L Normal 10 - 25 [facility] Comment on above: Performed By: #### A FPA3 ####[id number] [place] [address] BASE EXCESS-BLOOD -3.6 mmol/L Low -2.0 - 3.0 [facility] Comment on above: Performed By: #### A FPA3 ####[id number] [place] [address] CALCIUM,IONIZED 1.10 mmol/L Normal 1.10 - 1.33 [facility] Comment on above: Performed By: #### A FPA3 ####[id number] [place] [address] Chloride molar conc 100 mmol/L Normal 98 - 107 [facility] Comment on above: Performed By: #### A FPA3 ####[id number] [place] [address] FIO2 64 % Normal [facility] Comment on above: Performed By: #### A FPA3 ####[id number] [place] [address] Glucose mass conc 268 mg/dL High 74 - 99 [facility] Comment on above: Performed By: #### A FPA3 ####[id number] [place] [address] Hematocrit Auto Volume Fraction (Bld) 36.0 % Low 41.0 - 52.0 [facility] Comment on above: Performed By: #### A FPA3 ####[id number] [place] [address] HGB,CALCULATED 12.2 g/dL Low 13.5 - 17.5 [facility] Comment on above: Performed By: #### A FPA3 ####[id number] [place] [address] Lactate molar conc 3.1 mmol/L High 0.4 - 2.0 [facility] Comment on above: Performed By: #### A FPA3 ####[id number] [place] [address] Oxygen ppres (BldA) 111 mm[Hg] High 85 - 95 [facility] Comment on above: Performed By: #### A FPA3 ####[id number] [place] [address] PCO2 47 mmHg High 38 - 42 [facility] Comment on above: Performed By: #### A FPA3 ####[id number] [place] [address] pH (Bld) 7.30 [pH] Low 7.38 - 7.42 [facility] Comment on above: Performed By: #### A FPA3 ####[id number] [place] [address] Potassium molar conc 5.3 mmol/L Normal 3.5 - 5.3 [facility] Comment on above: Performed By: #### A FPA3 ####[id number] [place] [address] RBC Auto #/vol (Bld) 23.1 mmol/L Normal 22.0 - 26.0 [facility] Comment on above: Performed By: #### A FPA3 ####[id number] [place] [address] SO2 99 % Normal 94 - 100 [facility] Comment on above: Performed By: #### A FPA3 ####[id number] [place] [address] Sodium molar conc 132 mmol/L Low 136 - 145 [facility] Comment on above: Performed By: #### A FPA3 ####[id number] [place] [address] Anion gap 3 molar conc 13 mmol/L Normal 10 - 25 [facility] Comment on above: Performed By: #### A FPA3 ####[id number] [place] [address] BASE EXCESS-BLOOD -3.2 mmol/L Low -2.0 - 3.0 [facility] Comment on above: Performed By: #### A FPA3 ####[id number] [place] [address] CALCIUM,IONIZED 1.20 mmol/L Normal 1.10 - 1.33 [facility] Comment on above: Performed By: #### A FPA3 ####[id number] [place] [address] Chloride molar conc 102 mmol/L Normal 98 - 107 [facility] Comment on above: Performed By: #### A FPA3 ####[id number] [place] [address] FIO2 100 % Normal [facility] Comment on above: Performed By: #### A FPA3 ####[id number] [place] [address] Glucose mass conc 238 mg/dL High 74 - 99 [facility] Comment on above: Performed By: #### A FPA3 ####[id number] [place] [address] Hematocrit Auto Volume Fraction (Bld) 40.0 % Low 41.0 - 52.0 [facility] Comment on above: Performed By: #### A FPA3 ####[id number] [place] [address] HGB,CALCULATED 13.6 g/dL Normal 13.5 - 17.5 [facility] Comment on above: Performed By: #### A FPA3 ####[id number] [place] [address] Lactate molar conc 2.3 mmol/L High 0.4 - 2.0 [facility] Comment on above: Performed By: #### A FPA3 ####[id number] [place] [address] Oxygen ppres (BldA) 383 mm[Hg] High 85 - 95 [facility] Comment on above: Performed By: #### A FPA3 ####[id number] [place] [address] PCO2 48 mmHg High 38 - 42 [facility] Comment on above: Performed By: #### A FPA3 ####[id number] [place] [address] pH (Bld) 7.30 [pH] Low 7.38 - 7.42 [facility] Comment on above: Performed By: #### A FPA3 ####[id number] [place] [address] Potassium molar conc 4.6 mmol/L Normal 3.5 - 5.3 [facility] Comment on above: Performed By: #### A FPA3 ####[id number] [place] [address] RBC Auto #/vol (Bld) 23.6 mmol/L Normal 22.0 - 26.0 [facility] Comment on above: Performed By: #### A FPA3 ####[id number] [place] [address] SO2 99 % Normal 94 - 100 [facility] Comment on above: Performed By: #### A FPA3 ####[id number] [place] [address] Sodium molar conc 134 mmol/L Low 136 - 145 [facility] Comment on above: Performed By: #### A FPA3 ####[id number] [place] [address] CALCIUM, IONIZEDon 8 CALCIUM,IONIZED 1.24 mmol/L Normal 1.10 - 1.33 [facility] Comment on above: Result Comment: The performance characteristics of ionized calcium tested in heparinized plasma or serum have been validated by the individual laboratory site where testing is performed. Testing on heparinized plasma or serum is not approved by the FDA; however, such approval is not necessary. Performed By: #### E MRAD ####NO LOCATION NEEDED CBCon 03-31-2018 Erythrocyte distribution width Auto Ratio (RBC) 12.8 % Normal 11.5 - 14.5 [facility] Comment on above: Performed By: #### E MRAD ####NO LOCATION NEEDED Hematocrit Auto Volume Fraction (Bld) 37.9 % Low 41.0 - 52.0 [facility] Comment on above: Performed By: #### E MRAD ####NO LOCATION NEEDED Hemoglobin mass conc (Bld) 12.7 g/dL Low 13.5 - 17.5 [facility] Comment on above: Performed By: #### E MRAD ####NO LOCATION NEEDED MCHC Auto mass conc (RBC) 33.5 g/dL Normal 32.0 - 36.0 [facility] Comment on above: Performed By: #### E MRAD ####NO LOCATION NEEDED MCV Auto Entitic volume (RBC) 92 fL Normal 80 - 100 [facility] Comment on above: Performed By: #### E MRAD ####NO LOCATION NEEDED Nucleated RBC/100 WBC Ratio (Bld) 0.0 /100 WBC Normal 0.0-0.0 [facility] Comment on above: Performed By: #### E MRAD ####NO LOCATION NEEDED Platelets Auto #/vol (Bld) 201 10*3/uL Normal 150 - 450 [facility] Comment on above: Performed By: #### E MRAD ####NO LOCATION NEEDED RBC Auto #/vol (Bld) 4.12 x10E12/L Low 4.50 - 5.90 [facility] Comment on above: Performed By: #### E MRAD ####NO LOCATION NEEDED WBC Auto #/vol (Bld) 19.7 10*3/uL High 4.4 - 11.3 [facility] Comment on above: Performed By: #### E MRAD ####NO LOCATION NEEDED Erythrocyte distribution width Auto Ratio (RBC) 12.7 % Normal 11.5 - 14.5 [facility] Comment on above: Performed By: #### C BC ####[id number] [place] [address] Hematocrit Auto Volume Fraction (Bld) 33.7 % Low 41.0 - 52.0 [facility] Comment on above: Performed By: #### C BC ####[id number] [place] [address] Hemoglobin mass conc (Bld) 11.5 g/dL Low 13.5 - 17.5 [facility] Comment on above: Performed By: #### C BC ####[id number] [place] [address] MCHC Auto mass conc (RBC) 34.1 g/dL Normal 32.0 - 36.0 [facility] Comment on above: Performed By: #### C BC ####[id number] [place] [address] MCV Auto Entitic volume (RBC) 92 fL Normal 80 - 100 [facility] Comment on above: Performed By: #### C BC ####[id number] [place] [address] Nucleated RBC/100 WBC Ratio (Bld) 0.0 /100 WBC Normal 0.0-0.0 [facility] Comment on above: Performed By: #### C BC ####[id number] [place] [address] Platelets Auto #/vol (Bld) 167 10*3/uL Normal 150 - 450 [facility] Comment on above: Performed By: #### C BC ####[id number] [place] [address] RBC Auto #/vol (Bld) 3.66 x10E12/L Low 4.50 - 5.90 [facility] Comment on above: Performed By: #### C BC ####[id number] [place] [address] WBC Auto #/vol (Bld) 14.7 10*3/uL High 4.4 - 11.3 [facility] Comment on above: Performed By: #### C BC ####[id number] [place] [address] Erythrocyte distribution width Auto Ratio (RBC) 12.7 % Normal 11.5 - 14.5 [facility] Comment on above: Performed By: #### C BC ####[id number] [place] [address] Hematocrit Auto Volume Fraction (Bld) 40.5 % Low 41.0 - 52.0 [facility] Comment on above: Performed By: #### C BC ####[id number] [place] [address] Hemoglobin mass conc (Bld) 13.9 g/dL Normal 13.5 - 17.5 [facility] Comment on above: Performed By: #### C BC ####[id number] [place] [address] MCHC Auto mass conc (RBC) 34.3 g/dL Normal 32.0 - 36.0 [facility] Comment on above: Performed By: #### C BC ####[id number] [place] [address] MCV Auto Entitic volume (RBC) 91 fL Normal 80 - 100 [facility] Comment on above: Performed By: #### C BC ####[id number] [place] [address] Nucleated RBC/100 WBC Ratio (Bld) 0.0 /100 WBC Normal 0.0-0.0 [facility] Comment on above: Performed By: #### C BC ####[id number] [place] [address] Platelets Auto #/vol (Bld) 220 10*3/uL Normal 150 - 450 [facility] Comment on above: Performed By: #### C BC ####[id number] [place] [address] RBC Auto #/vol (Bld) 4.44 x10E12/L Low 4.50 - 5.90 [facility] Comment on above: Performed By: #### C BC ####[id number] [place] [address] WBC Auto #/vol (Bld) 8.6 10*3/uL Normal 4.4 - 11.3 [facility] Comment on above: Performed By: #### C BC ####[id number] [place] [address] COAGULATION SCREENon 03-31-2 018 aPTT Coag time (Bld) 27 s Low 28 - 38 [facility] Comment on above: Result Comment: Note new reference range as of 03/10/2018. THE APTT IS NO LONGER USED FOR MONITORING UNFRACTIONATED HEPARIN THERAPY. FOR MONITORING HEPARIN THERAPY, USE THE HEPARIN ASSAY. Performed By: #### E MRAD ####NO LOCATION NEEDED INR Coag RelTime (PPP) 1.2 {INR} High 0.9 - 1.1 [facility] Comment on above: Performed By: #### E MRAD ####NO LOCATION NEEDED Prothrombin time (PT) Coag time (PPP) 13.8 s High 9.7 - 12.7 [facility] Comment on above: Result Comment: Note new reference range as of 03/10/2018. Performed By: #### E MRAD ####NO LOCATION NEEDED aPTT Coag time (Bld) 27 s Low 28 - 38 [facility] Comment on above: Result Comment: Note new reference range as of 03/10/2018. THE APTT IS NO LONGER USED FOR MONITORING UNFRACTIONATED HEPARIN THERAPY. FOR MONITORING HEPARIN THERAPY, USE THE HEPARIN ASSAY. Performed By: #### C OAGS ####[id number] [place] [address] INR Coag RelTime (PPP) 1.4 {INR} High 0.9 - 1.1 [facility] Comment on above: Performed By: #### C OAGS ####[id number] [place] [address] Prothrombin time (PT) Coag time (PPP) 16.0 s High 9.7 - 12.7 [facility] Comment on above: Result Comment: Note new reference range as of 03/10/2018. Performed By: #### C OAGS ####[id number] [place] [address] aPTT Coag time (Bld) 66 s High 28 - 38 [facility] Comment on above: Result Comment: Note new reference range as of 03/10/2018. THE APTT IS NO LONGER USED FOR MONITORING UNFRACTIONATED HEPARIN THERAPY. FOR MONITORING HEPARIN THERAPY, USE THE HEPARIN ASSAY. Performed By: #### C OAGS ####[id number] [place] [address] INR Coag RelTime (PPP) 1.2 {INR} High 0.9 - 1.1 [facility] Comment on above: Performed By: #### C OAGS ####[id number] [place] [address] Prothrombin time (PT) Coag time (PPP) 13.4 s High 9.7 - 12.7 [facility] Comment on above: Result Comment: Note new reference range as of 03/10/2018. Performed By: #### C OAGS ####[id number] [place] [address] COOX PANEL, ARTERIALon 03-31 DEOXY HGB 1.4 % Normal 0.0 - 5.0 [facility] Comment on above: Performed By: #### E MRAD ####NO LOCATION NEEDED Hemoglobin mass conc (Bld) 11.5 g/dL Low 13.5 - 17.5 [facility] Comment on above: Performed By: #### E MRAD ####NO LOCATION NEEDED Hemoglobin mass conc (Bld) 2.1 % Abnormal [facility] Comment on above: Result Comment: REF VALUESNONSMOKERS 0.5-1.5%SMOKERS 0.5-10.0% Performed By: #### E MRAD ####NO LOCATION NEEDED MET HGB 1.0 % Normal 0.0 - 1.5 [facility] Comment on above: Performed By: #### E MRAD ####NO LOCATION NEEDED OXY HGB 95.5 % Normal 94.0 - 98.0 [facility] Comment on above: Performed By: #### E MRAD ####NO LOCATION NEEDED DEOXY HGB 1.2 % Normal 0.0 - 5.0 [facility] Comment on above: Performed By: #### C OOXA ####[id number] [place] [address] Hemoglobin mass conc (Bld) 12.0 g/dL Low 13.5 - 17.5 [facility] Comment on above: Performed By: #### C OOXA ####[id number] [place] [address] Hemoglobin mass conc (Bld) 2.1 % Abnormal [facility] Comment on above: Result Comment: REF VALUESNONSMOKERS 0.5-1.5%SMOKERS 0.5-10.0% Performed By: #### C OOXA ####[id number] [place] [address] MET HGB 1.3 % Normal 0.0 - 1.5 [facility] Comment on above: Performed By: #### C OOXA ####[id number] [place] [address] OXY HGB 95.4 % Normal 94.0 - 98.0 [facility] Comment on above: Performed By: #### C OOXA ####[id number] [place] [address] DEOXY HGB 0.3 % Normal 0.0 - 5.0 [facility] Comment on above: Performed By: #### C OOXA ####[id number] [place] [address] Hemoglobin mass conc (Bld) 11.7 g/dL Low 13.5 - 17.5 [facility] Comment on above: Performed By: #### C OOXA ####[id number] [place] [address] Hemoglobin mass conc (Bld) 2.0 % Abnormal [facility] Comment on above: Result Comment: REF VALUESNONSMOKERS 0.5-1.5%SMOKERS 0.5-10.0% Performed By: #### C OOXA ####[id number] [place] [address] MET HGB 1.1 % Normal 0.0 - 1.5 [facility] Comment on above: Performed By: #### C OOXA ####[id number] [place] [address] OXY HGB 96.5 % Normal 94.0 - 98.0 [facility] Comment on above: Performed By: #### C OOXA ####[id number] [place] [address] DEOXY HGB 0.6 % Normal 0.0 - 5.0 [facility] Comment on above: Performed By: #### C OOXA ####[id number] [place] [address] Hemoglobin mass conc (Bld) 1.8 % Abnormal [facility] Comment on above: Result Comment: REF VALUESNONSMOKERS 0.5-1.5%SMOKERS 0.5-10.0% Performed By: #### C OOXA ####[id number] [place] [address] Hemoglobin mass conc (Bld) 11.4 g/dL Low 13.5 - 17.5 [facility] Comment on above: Performed By: #### C OOXA ####[id number] [place] [address] MET HGB 1.0 % Normal 0.0 - 1.5 [facility] Comment on above: Performed By: #### C OOXA ####[id number] [place] [address] OXY HGB 96.6 % Normal 94.0 - 98.0 [facility] Comment on above: Performed By: #### C OOXA ####[id number] [place] [address] DEOXY HGB 0.3 % Normal 0.0 - 5.0 [facility] Comment on above: Performed By: #### C OOXA ####[id number] [place] [address] Hemoglobin mass conc (Bld) 2.0 % Abnormal [facility] Comment on above: Result Comment: REF VALUESNONSMOKERS 0.5-1.5%SMOKERS 0.5-10.0% Performed By: #### C OOXA ####[id number] [place] [address] Hemoglobin mass conc (Bld) 11.3 g/dL Low 13.5 - 17.5 [facility] Comment on above: Performed By: #### C OOXA ####[id number] [place] [address] MET HGB 0.7 % Normal 0.0 - 1.5 [facility] Comment on above: Performed By: #### C OOXA ####[id number] [place] [address] OXY HGB 97.0 % Normal 94.0 - 98.0 [facility] Comment on above: Performed By: #### C OOXA ####[id number] [place] [address] DEOXY HGB -0.1 % Low 0.0 - 5.0 [facility] Comment on above: Performed By: #### C OOXA ####[id number] [place] [address] Hemoglobin mass conc (Bld) 2.2 % Abnormal [facility] Comment on above: Result Comment: REF VALUESNONSMOKERS 0.5-1.5%SMOKERS 0.5-10.0% Performed By: #### C OOXA ####[id number] [place] [address] Hemoglobin mass conc (Bld) 11.3 g/dL Low 13.5 - 17.5 [facility] Comment on above: Performed By: #### C OOXA ####[id number] [place] [address] MET HGB 0.8 % Normal 0.0 - 1.5 [facility] Comment on above: Performed By: #### C OOXA ####[id number] [place] [address] OXY HGB 97.1 % Normal 94.0 - 98.0 [facility] Comment on above: Performed By: #### C OOXA ####[id number] [place] [address] DEOXY HGB 1.0 % Normal 0.0 - 5.0 [facility] Comment on above: Performed By: #### C OOXA ####[id number] [place] [address] Hemoglobin mass conc (Bld) 1.9 % Abnormal [facility] Comment on above: Result Comment: REF VALUESNONSMOKERS 0.5-1.5%SMOKERS 0.5-10.0% Performed By: #### C OOXA ####[id number] [place] [address] Hemoglobin mass conc (Bld) 10.9 g/dL Low 13.5 - 17.5 [facility] Comment on above: Performed By: #### C OOXA ####[id number] [place] [address] MET HGB 1.7 % High 0.0 - 1.5 [facility] Comment on above: Performed By: #### C OOXA ####[id number] [place] [address] OXY HGB 95.4 % Normal 94.0 - 98.0 [facility] Comment on above: Performed By: #### C OOXA ####[id number] [place] [address] DEOXY HGB 1.5 % Normal 0.0 - 5.0 [facility] Comment on above: Performed By: #### C OOXA ####[id number] [place] [address] Hemoglobin mass conc (Bld) 13.2 g/dL Low 13.5 - 17.5 [facility] Comment on above: Performed By: #### C OOXA ####[id number] [place] [address] Hemoglobin mass conc (Bld) 1.6 % Abnormal [facility] Comment on above: Result Comment: REF VALUESNONSMOKERS 0.5-1.5%SMOKERS 0.5-10.0% Performed By: #### C OOXA ####[id number] [place] [address] MET HGB 0.8 % Normal 0.0 - 1.5 [facility] Comment on above: Performed By: #### C OOXA ####[id number] [place] [address] OXY HGB 96.2 % Normal 94.0 - 98.0 [facility] Comment on above: Performed By: #### C OOXA ####[id number] [place] [address] DEOXY HGB 0.7 % Normal 0.0 - 5.0 [facility] Comment on above: Performed By: #### C OOXA ####[id number] [place] [address] Hemoglobin mass conc (Bld) 1.5 % Normal [facility] Comment on above: Result Comment: REF VALUESNONSMOKERS 0.5-1.5%SMOKERS 0.5-10.0% Performed By: #### C OOXA ####[id number] [place] [address] Hemoglobin mass conc (Bld) 14.7 g/dL Normal 13.5 - 17.5 [facility] Comment on above: Performed By: #### C OOXA ####[id number] [place] [address] MET HGB 0.9 % Normal 0.0 - 1.5 [facility] Comment on above: Performed By: #### C OOXA ####[id number] [place] [address] OXY HGB 96.9 % Normal 94.0 - 98.0 [facility] Comment on above: Performed By: #### C OOXA ####[id number] [place] [address] CORTISOL, A.M.on 03-31-2018 CORTISOL, A.M. 24.7 ug/dL High 5.0 - 20.0 [facility] Comment on above: Performed By: #### C ARABELLA ####[id number] [place] [address] CORTISOL, P.M.on 03-31-2018 CORTISOL, P.M. 17.4 ug/dL High 2.5 - 10.0 [facility] Comment on above: Performed By: #### E MRAD ####NO LOCATION NEEDED CORTISOL, P.M. 31.3 ug/dL High 2.5 - 10.0 [facility] Comment on above: Performed By: #### E MRAD ####NO LOCATION NEEDED CORTISOL, P.M. 44.9 ug/dL High 2.5 - 10.0 [facility] Comment on above: Performed By: #### E MRAD ####NO LOCATION NEEDED Daily Progress Note-Endocrin ologyon 03-31-2018 Protein mass conc Consult Type: subseq uent visit/care Service: Endocrinology Subjective Data:DON ELKINS is a 67 year old Male who is Hospital Day # 14. CABG Today First case, patient given HCT 30 mg by mouth once at 5 am , Cortisollevel checked one hour later, HCt 25 mg IV q6hrs to be started as of NOW (6 am)and continued as q6hrs. Objective Data: Objective Information:T [id number]/8894% Date/Time03/31 4: 4: 4: 4: 4:07Range(35.8C - 36.4C ) (74 - 97 ) (17 - 20 ) (110 - 159 )/ (65 - 92 ) (94%- 97% ) Pain with Activity reported at 03/30 7:51: 3Pain at Rest reported at 03/30 19:00: 0 Physical Exam: Constitutional: Well developed, awake/alert/oriented x3, no distress, alert andcooperativeGastrointestinal : Nondistended, soft, non-tender, no rebound tenderness orguarding, no masses palpable, no organomegaly, +BS, no bruitsSkin: Warm and dry, no lesions, no rashes Medication: Medications: Continuous Medications -- 1. Nitroglycerin 50 mg/ D5W 250 mL Infusion: 10 mcg/min IntraVenous 2. Sodium Chloride 0.9% .: 250 mL IntraVenous Scheduled Medications -- 1. Aspirin Chewable: 81 mg Oral Daily2. Atorvastatin: 40 mg Oral Daily3. Carvedilol: 12.5 mg Oral 2 Times a Day4. Chlorhexidine Gluconate 4% Topical: 1 application(s) Topical Once5. Citalopram: 20 mg Oral Daily6. Docusate 50 mg - Senna 8.6 m tablet(s) Oral 2 Times a Day7. Fludrocortisone: 0.05 mg Oral 8. Heparin (Repeat Bolus) Injectable: 4000 unit(s) IntraVenous Push Every 5Njoxz5. Hydrocortisone Na Succinate Injectable: 25 mg IntraVenous Push Every 3Kcvzo23. Insulin Glargine (Lantus) Injectable: 20 unit(s) SubCutaneous Every 79Hcxtx93. Insulin Lispro (HumaLOG) Injectable: 12 unit(s) SubCutaneous 3 Times aDay Before Meals12. Insulin Lispro Mild Corrective Scale: unit(s) SubCutaneous 3 Times a DayBefore Meals13. Levothyroxine: 150 microgram(s) Oral Daily14. Mupirocin 2%: 0.5 application(s) Each Nostril 2 Times a Day15. Pantoprazole: 40 mg Oral Daily16. rOPINIRole: 6 mg Oral 17. Sodium Chloride 0.65% Nasal [place]: 2 spray(s) Each Nostril 2 Times aDay PRN Medications -- 1. Dextrose 50% in Water Injectable: 25 gram(s) IntraVenous Push Every 19Dblrlwn6. Glucagon Injectable: 1 mg IntraMuscular Every 15 Minutes3. Nitroglycerin SubLingual: 0.4 mg SubLingual Every 5 Minutes4. Polyethylene Glycol: 17 gram(s) Oral Daily Currently Suspended Medications -- 1. Hydrocortisone: 10 mg Oral 2. Hydrocortisone: 5 mg Oral 3. Hydrocortisone: 2.5 mg Oral Recent Lab Results: Results: I have reviewed these laboratory results: Glucose_POCT Trending View [id number] 21:35:00 30-Mar-2018 17:24:00 30-Mar-2018 12:06:00 30-Mar-2018 07:46:00 29-Mar-2018 20:49:00Glucose-QOTC888 H 216 H 205 H 153 H 244 H Renal Function Panel Trending View [id number] 19:18:00 29-Mar-2018 19:58:00Glucose, Hzwli534 H 237 RED555 132 LK4.4 4.4SN235 99Bicarbonate, Serum23 19 LAnion Gap, Serum16 35LUM47 H 24 HCREAT1.68 H 1.32 HGFR-Non Dazcrdrt37 A 54 AGFR- Veupozzz55 A 65Calcium, Serum9.5 9.3Phosphorus, Serum4.5 4.2ALB4.1 3.9 Assessment and Plan:Assessment: Mr. Elkins is a 67 yo WM with no known history of CAD, who has a past medicalhistory of HTN, HLD, T2DM, [facility]'s disease, hypothyroidism, COPD, AKASH onCPAP, prostate ca s/p prostatectomy in 2011, and psoriasis [facility] [facility] evaluation of [facility] disease and treatment periop Patient was on supra-therapeutic dose of HCT 20-0-20 , fludrocortisone 0.1 ,mgdailyPatient has uncontrolled HTN and uncontrolled BSMost likely tomorrow (03/23) IVC filter placement 1. [facility] Disease-- Fludrocortisone 0.05 mg 4 times weekly ( and friday)-- 03/31:CABG Today First case, patient given HCT 30 mg by mouth once at 5 am , Cortisollevel checked one hour later, HCt 25 mg IV q6hrs to be started as of NOW (6 am)and continued as [id number]--Sudun Cortisol level q2 hrs after pm dose of HCT IV--Will follow 2. T2DM-- Patient received lantus 20 units instead of 30 yesterday in the evening--Pt having CABG today, to eb on insulin drip as per CICU protocol post op--Will follow Please page with questions [phone] Patient seen and examined, plan discussed with Dr Quevedo Signature/Cosignature/Attestat ion:Attending AttestationI saw and evaluated the patient. I personally obtainedthe judge and critical portions of the history and physical exam or wasphysically present for judge and critical portions performed by theresident/fellow. I reviewed the resident/fellows documentation and discussedthe patient with the resident/fellow. I agree with the resident/fellowsmedical decision making as documented in the residents note.I personally evaluated the patient (as noted in the above attestation) [id number] Electronic Signatures:Starr Quevedo) (Signed 02-Apr-2018 10:01)Authored: Signature/Cosignature/Attestat ionCo-Signer: Service, Subjective Data, Objective Data, Assessment and Plan,Signature/Cosignature/Att estationHasmukh Stephenson (Resident)) (Signed 31-Mar-2018 06:23)Authored: Service, Subjective Data, Objective Data, Assessment and Plan,Signature/Cosignature/Att estation Last Updated: 02-Apr-2018 10:01 by Starr Quevedo) Normal [facility] EMR ADDONon 03-31-2018 ADDON CONFIRMATION REQUEST REC'D Normal [facility] Comment on above: Performed By: #### E MRAD ####NO LOCATION NEEDED FIBRINOGENon 03-31-2018 FIBRINOGEN Canceled Normal [facility] Comment on above: Order Comment: TEST FIBRINOGEN WAS CANCELLED, 03/31/2018 14:47 ?Cancel Reason: Discontinued. Performed By: #### E MRAD ####NO LOCATION NEEDED FIBRINOGEN 244 mg/dL Normal 200 - 400 [facility] Comment on above: Performed By: #### F IB ####[id number] [place] [address] FIBRINOGEN 356 mg/dL Normal 200 - 400 [facility] Comment on above: Performed By: #### F IB ####[id number] [place] [address] GLUCOSE-POCTon 03-31-2018 Glucose mass conc 149 mg/dL High 74 - 99 [facility] Comment on above: Performed By: #### E MRAD ####NO LOCATION NEEDED Glucose mass conc 167 mg/dL High 74 - 99 [facility] Comment on above: Performed By: #### E MRAD ####NO LOCATION NEEDED Glucose mass conc 172 mg/dL High 74 - 99 [facility] Comment on above: Performed By: #### E MRAD ####NO LOCATION NEEDED Glucose mass conc 186 mg/dL High - [address] [place] [address] Comment on above: Performed By: #### E MRAD ####NO LOCATION NEEDED Glucose mass conc 191 mg/dL High - 99 [facility] Comment on above: Performed By: #### E MRAD ####NO LOCATION NEEDED Glucose mass conc 210 mg/dL High - 99 [facility] Comment on above: Performed By: #### G BECKY ####[id number] [place] [address] History and Physical - Christopher Vitale 03-31-2018 History and Physical - Critical Care Service:Critical Care Service: ServiceSU Purple History of Present Illness:HPI:HPI: 67 yo M with HTN, DLD, T2DM, Addisson's, GERD, prostate ca s/pprostatectomy in 2011, hypothyroidism, psoriasis transferred to medicine at [facility] from [facility] on 03/18 for CABG eval Patient reports 2 month h/o intermittent exertional left sided chest painlasting less than 30 min, relieved with rest, with no other associatedsymptoms. He woke up 03/16 at 1AM with chest pressure associated with dyspnea,and his took him to [facility] where he was diagnosed with a PE,started on heparin gtt, then transferred to [facility]. There, hewas found to have a trop leak which peaked at 2.25, with no EKG changes (NSRwith no Q, T or ST waves/segment abnormalities). Bedside US was negative forDVT. TTE and LHC revealed multivessel CAD. He was transferred to forfurther management. Presents to SICU on 03/31/2018 s/p CABG x 3 (REIS --> LAD, SVG --> PDA, SVG-->Diag) by Dr. Gaston OR Course/Issues: noneCPB time: 110 minutesCross clamp time: 73 minutesEcho Pre/Post: Normal pre-op, not performed intra-op d/t reported dysphagia x 1monthChest Tubes/Drains: 2 mediastinal chest tubes, 1 L pleuralTemporary wires location/setting: A-wires FluidsCrystalloid: 2LColloid: 250albuminProducts: noneCellsaver: 150mlEBL: 450UOP: 460 AnesthesiaIntubation: MAC 4, Grade IIIntravenous Access: PIVOpioid dose/last administration: 1250mcg Fentanyl, last dose 150mcg @ 1215Benzodiazepine dose/last administration: Versed 2mg @ 740NMB dose/last administration: Rocuronium 200mgAntibiotic time: 1.5 Vanco @ 0810, Cefuroxime 1.5g @ 0845/1233 PMH as above PSHcataract surgery, cholecystectomy, appendectomy, carpal tunnel release surgery,cystoscopy 3 weeks ago for microscopic hematuria, root canal 3 weeks ago.Prostatectomy 2011 FAMILY HISTORY [place], CHF, HTN, DM and DLD SOCIAL HISTORY quit smoking 20 years ago. 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 HOME MEDICATIONSaspirin 81 mg oral tablet, chewable: 1 tab(s) orally once a dayCalcium 600+D 600 mg-200 intl units oral tablet: orally once a daycitalopram 20 mg oral tablet: 1 tab(s) orally once a dayCoenzyme Q10 100 mg oral capsule: 1 cap(s) orally once a dayfludrocortisone 0.1 mg oral tablet: 1 tab(s) orally once a dayhydrocortisone 20 mg oral tablet: 1 tab(s) orally 2 times a dayibuprofen 600 mg oral tablet: orally 2 times a daylevothyroxine 150 mcg (0.15 mg) oral capsule: 1 cap(s) orally once a daylisinopril 20 mg oral tablet: 1 tab(s) orally once a daymetFORMIN 500 mg oral tablet: 1 tab(s) orally 2 times a dayMultiple Vitamins oral tablet: 1 tab(s) orally once a dayOmega-3 oral capsule: orally once a dayomeprazole 40 mg oral delayed release capsule: 1 cap(s) orally once a dayrOPINIRole 8 mg oral tablet, extended release: 1 tab(s) orally once a daysimvastatin 20 mg oral tablet: 1 tab(s) orally once a day (at bedtime). PRIOR IMAGINGCTA at [place]:Pulmonary emboli involving the bilateral lobar segmental, and severalsubsegmental branches (RUL, RML, RLL, FIDEL, LLL). LHC at [facility]:LAD prox: 30%LAD mid: 95%Diag 3rd: 99%RCA: 85 %PLV: 50%Circ: 95% TTE at [facility]:EF 60-65%Mild LA dialtionNo valvular abnormalities Comorbidities: Comorbid Conditionsdiabetes, hypertension Diabtetes TypeType 2 Insulin Dependentno DM Acuity or Statusunknown DM Complicationsunknown Allergies: No Known Allergies: Medications Prior to Admission: aspirin 81 mg oral tablet, chewable: 1 tab(s) orally once a dayCalcium 600+D 600 mg-200 intl units oral tablet: orally once a daycitalopram 20 mg oral tablet: 1 tab(s) orally once a dayCoenzyme Q10 100 mg oral capsule: 1 cap(s) orally once a dayfludrocortisone 0.1 mg oral tablet: 1 tab(s) orally once a dayhydrocortisone 20 mg oral tablet: 1 tab(s) orally 2 times a dayibuprofen 600 mg oral tablet: orally 2 times a daylevothyroxine 150 mcg (0.15 mg) oral capsule: 1 cap(s) orally once a daylisinopril 20 mg oral tablet: 1 tab(s) orally once a daymetFORMIN 500 mg oral tablet: 1 tab(s) orally 2 times a dayMultiple Vitamins oral tablet: 1 tab(s) orally once a dayOmega-3 oral capsule: orally once a dayomeprazole 40 mg oral delayed release capsule: 1 cap(s) orally once a dayrOPINIRole 8 mg oral tablet, extended release: 1 tab(s) orally once a daysimvastatin 20 mg oral tablet: 1 tab(s) orally once a day (at bedtime). Review of Systems:Incomplete ROS: patient intubated, sedated Objective:Objective Information: Objective Information T NDUECiJ2Colaf12.757112380/5994 %Date/Time03/31 4: 15: 4: 14: 15:00Range(35.8C - 36.4C ) (80 - 102 ) (18 - 20 ) (110 - 139 )/ (59 - 88 )(94% - 100% ) Vent Phoujuwm55/13 14:37IjrbbTWX65/13 14:11Rate Set (breaths/min)14105/31 14:11Tidal Volume Set (mL)44544/13 14:11PEEP (cm H2O)8105/31 14:11FiO2 (%)50 Vent Data03/31 14:11Ventilator IdentificationXL 7303/31 14:11Start Lsdl03-Pwm-014223/13 14:11Start Time14: 14:11Ventilator Days and Hours0 Hours Non-Prxeudta63/13 14:11High Inspiratory Pressure (cm H2O)45 Physical Exam: Neurological: intubated/sedated/neuromusclar blocked. No spontaneous movementof extremities.Cardiovascular: Sinus tach 101. Midsternal incision with dressing CDI.Mediastinal chest tube x 2, left pleural chest tube x 1, draining minimalserosang. A-wires present, AAI @ 90. Right SVG site with lauren bandage intact.Pulses palpable throughout.Respiratory/Thorax: Intubated, mechanically ventilated. Lungs clear. Equalchest expansionGenitourinary: Her intact, draining clear yellow urine.Gastrointestinal: OG to LIWS. Abdomen soft, non-distended. Bowel sounds faint.Skin: Warm and dry, no lesions, no rashesConstitutional: intubated/sedatedEyes: PERRL, EOMI, clear scleraENMT: mucous membranes moist, no apparent injury, no lesions seenHead/Neck: RIJ MAC with SCG, trachea midlineExtremities: normal extremities, no cyanosis edema, contusions or wounds, noclubbingPsychological: sedated Medications: Medications: Continuous Medications -- 1. Clevidipine 0.5 mg / mL Infusion: 1 mg/hr IntraVenous 2. Insulin Regular 100 units/ NaCL 0.9% 100 mL Intensive Infusion: 3 units/hr IntraVenous 3. PLASMA-LYTE Infusion: 1000 mL IntraVenous 4. Propofol 10 mg/mL Infusion: 5 mcg/kg/min IntraVenous Scheduled Medications -- 1. Docusate: 100 mg Oral 2 Times a Day2. fentaNYL Injectable: 50 microgram(s) IntraVenous Push Once3. Hydrocortisone Na Succinate Injectable: 25 mg IntraVenous Push Every 0Kffsp8. Lidocaine 5% TransDermal: 1 patch TransDermal Every 24 Hours5. Pantoprazole Injectable: 40 mg IntraVenous Push Every 24 Hours PRN Medications -- 1. Bisacodyl Rectal: 10 mg Rectal Daily2. Calcium Chloride IVPB: 0.5 gram(s) IntraVenous Piggyback Every 8 Hours3. Calcium Chloride IVPB: 1 gram(s) IntraVenous Piggyback Every 8 Hours4. Dextrose 50% in Water Injectable: 25 gram(s) IntraVenous Push Every 22Cofsusl3. Glucagon Injectable: 1 mg IntraMuscular Every 15 Minutes6. HYDROmorphone Injectable: 0.2 mg IntraVenous Push Every 15 Minutes7. Magnesium Sulfate 2 gram/Sterile Water 50 mL Premix Soln: 2 gram(s)IntraVenous Piggyback Every 6 Hours8. Magnesium Sulfate 4 gram/Sterile Water 100 mL Premix Soln: 4 gram(s)IntraVenous Piggyback Every 6 Hours9. Potassium Chloride 20 mEq/Sterile Water 100 mL Premix IVPB: 20 mEqIntraVenous Piggyback Every 6 Hours10. Potassium Chloride 40 mEq/Sterile Water 100 mL Premix IVPB: 40 mEqIntraVenous Piggyback Every 6 Hours Currently Suspended Medications -- 1. Aspirin Enteric Coated: 81 mg Oral Daily2. Atorvastatin: 40 mg Oral Daily3. Insulin Lispro Customizable Corrective Scale: unit(s) SubCutaneous Every4 Hours Recent Lab Results: Results:CBC: 03/31/2018 07:56 \ Hgb / \ 13.9 /WBC Plt 8.6 220 / Hct \ / 40.5 L \ RBC: 4.44 L MCV: 91 RFP: 03/30/2018 19:18NA+ Cl- BUN / 136 101 24 H / --- Glucose ---- 193 H K+ HCO3- Creat \ 4.4 23 1.68 H \Calcium : 9.5Anion Gap : 16 Albumin : 4.1 Phos : 4.5 Coagulation: 03/31/2018 07:56PT / 13.4 H /-------< INR < 1.2 HPTT\ 66 H \ Fibrinogen: 356 Recent Arterial Blood Gas Results 03/31/2018 07:93dS9704xF3.24pJZ854HL692Gv se Excess-3.3Tkhvltnoanh49.6 Assessment and Plan:Other:Assessment: Assessment:67 year old with a history of CAD, HTN, HLD, DM2, Gerd, [facility]'s, andhypothyroid presents from the OR s/p CABG . Problem List: Plan:NEURO: Patient is intubated and sedated on propofol infusion. Acutepost-operative pain. H/o depression, RLS -->- Hold home citalopram and ropinirole- Serial neuro and pain assessments- Continue propofol until NMB reversal, then daily sedation vacation atminimum- NMB reversal when normothermic and hemodynamically stable.- Prn fentanyl for pain control- Lidoderm patches- PT Consult, OOB to chair as tolerated, chair position if not tolerated- CAM ICU score qshift- Sleep/wake cycle hygiene CV: Patient has a history of CAD, HTN, HLD and is status post CABG x 3. LVfunction: normal pre-op, intra-op echo not obtained d/t patient reportingdysphagia ~1 month. Arrived to ICU on Clevidipine. Pacer set at AAI @ 90.- Continuous EKG and ABP monitoring- Titrate gtts to maintain goal MAP 70-90, CI >2.2- Volume resuscitate as clinically indicated- Chest tubes to wall suction.- Holding home lisinopril- Start ASA tomorrow- Start statin tomorrow PULM: Presented to OSH with chest pain and SOB, CT of chest revealed bilaterallobar segmental and several PEs in subsegmental branches. 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 -->- f/u post op CXR- Once NMB reversed begin CPAP trials and extubate when criteria met.- Wean FiO2 maintaining SpO2 >92%.- ABGs as needed- IS q1h and OOB to chair when extubated GI: NPO. H/o GERD-->- Continue PPI- NPO- Colace and miralax : Baseline serum creatinine 1.4-1.6. -->- Continue her catheter for strict I/Os.- Goal UOP 0.5ml/kg/hr- RFP as clinically indicated- Replete electrolytes per SICU protocol ENDO: History of diabetes, Brigida's and hypothyroid -->- Consult Endocrine for management of [facility]'s- Continue hydrocortisone- Maintain BG <180, insulin per SICU protocol- Continue home synthroid HEME: Acute blood loss anemia and thrombocytopenia -->- Monitor drain output volume and characteristics- CBC, coags, and fibrinogen post op and as clinically indicated- SCDs for DVT prophylaxis. ID: Afebrile, no s/s of active infection. 03/19 MRSA screen and urine culturenegative.- Trend temp q4h- Periop Cefuroxime 1.5g x 5 doses Proph:SCDsPPI G: LineRight IJ MAC w PACLeft Filiberto Richey Seen with the critical care attending, Dr. Barnett: Continue SICU care. Kylie, REPLANTER#[id number] Code Status: Code StatusFull Code Signatures/Attestation/Certifi cation:Critical Care PatientI have reviewed and evaluated the most recent data kenney, personally examined the patient, and formulated the plan of care aspresented above. This patient was critically ill and required continuedcritical care treatment. Teaching and any separately billable procedures arenot included in the time calculation.Billing Provider Critical Care Time60 minute(s)Primary Critical Care Issue/Treatment (See Assessment and Plan for greaterdetail)-- For the nature of the critical condition and treatment, thisdocumentation has been prepared by the attending physician/ERAN- billingprovider of these critical care services.Attending Provider Inpatient Certification StatementI certify this patientsneed for inpatient care based on the above documentation including; the orderto admit as inpatient, the anticipated length of stay, diagnosis, problem listand plan of care, and discharge plan. Electronic Signatures:Abelino Klein) (Signed 01-Apr-2018 08:00)Authored: Signatures/Attestation/Certifi cationCo-Signer: Objective, Assessment and Plan,Signatures/Attestation/Ce Margot Walters ([employer] PROFESSIONAL-REPLANTER) (Signed 31-Mar-2018 16:14)Authored: Service, History of Present Illness, Comorbidities, Allergies,Medications Prior to Admission, Review of Systems, Objective, Assessment andPlan, Signatures/Attestation/Certifi cation Last Updated: 01-Apr-2018 08:00 by Abelino Klein) Normal [facility] MAGNESIUMon 03-31-2018 Magnesium mass conc 2.67 mg/dL High 1.60 - 2.40 [facility] Comment on above: Performed By: #### E MRAD ####NO LOCATION NEEDED MV FULL PANELon 03-31-2018 Anion gap 3 molar conc 12 mmol/L Normal 10 - 25 [facility] Comment on above: Performed By: #### E MRAD ####NO LOCATION NEEDED BASE EXCESS-BLOOD -1.2 mmol/L Normal [facility] Comment on above: Performed By: #### E MRAD ####NO LOCATION NEEDED CALCIUM,IONIZED 1.19 mmol/L Normal 1.10 - 1.33 [facility] Comment on above: Performed By: #### E MRAD ####NO LOCATION NEEDED Chloride molar conc 103 mmol/L Normal 98 - 107 [facility] Comment on above: Performed By: #### E MRAD ####NO LOCATION NEEDED Glucose mass conc 180 mg/dL High 74 - 99 [facility] Comment on above: Performed By: #### E MRAD ####NO LOCATION NEEDED Hematocrit Auto Volume Fraction (Bld) 34.0 % Low 41.0 - 52.0 [facility] Comment on above: Performed By: #### E MRAD ####NO LOCATION NEEDED HGB,CALCULATED 11.6 g/dL Low 13.5 - 17.5 [facility] Comment on above: Performed By: #### E MRAD ####NO LOCATION NEEDED Lactate molar conc 2.7 mmol/L High 0.4 - 2.0 [facility] Comment on above: Performed By: #### E MRAD ####NO LOCATION NEEDED Oxygen ppres (BldA) 41 mm[Hg] Normal [facility] Comment on above: Performed By: #### E MRAD ####NO LOCATION NEEDED PCO2 56 mmHg Normal [facility] Comment on above: Performed By: #### E MRAD ####NO LOCATION NEEDED pH (Bld) 7.28 [pH] Normal [facility] Comment on above: Performed By: #### E MRAD ####NO LOCATION NEEDED Potassium molar conc 5.1 mmol/L Normal 3.5 - 5.3 [facility] Comment on above: Performed By: #### E MRAD ####NO LOCATION NEEDED RBC Auto #/vol (Bld) 26.3 mmol/L Normal [facility] Comment on above: Performed By: #### E MRAD ####NO LOCATION NEEDED SO2 66 % Normal [facility] Comment on above: Performed By: #### E MRAD ####NO LOCATION NEEDED Sodium molar conc 136 mmol/L Normal 136 - 145 [facility] Comment on above: Performed By: #### E MRAD ####NO LOCATION NEEDED OPERATIVE REPORTon 8 OPERATIVE REPORT [place], [place] [address]Patient Name: DON ELKINSMRN: [id number]: 1Encounter Number: [id number] of Service: 03/31/2018Patient Location: [facility] [id number] Type: ISurgeon: Jc Gaston, BEVeport Type: Operative ReportsPREOPERATIVE DIAGNOSIS: 1. Coronary artery disease.2. Ischemic heart disease.3. Non-ST segment elevation myocardial infarction.4. Recent pulmonary embolism, on anticoagulant therapy.5. Diabetes.6. Hypertension.7. Dyslipidemia.8. Obesity.9. [place] Heart Association class III.POSTOPERATIVE DIAGNOSIS: 1. Coronary artery disease.2. Ischemic heart disease.3. Non-ST segment elevation myocardial infarction.4. Recent pulmonary embolism, on anticoagulant therapy.5. Diabetes.6. Hypertension.7. Dyslipidemia.8. Obesity.9. [place] Heart Association class III.10. Status post coronary artery bypass grafting x3.OPERATION/PROCEDURE: 1. Extracorporeal circulation.2. Right greater saphenous vein endoscopic harvest.3. Left internal mammary artery pedicle harvest.4. Coronary artery bypass grafting x3; left internal mammary artery to left anterior descending artery, saphenous vein graft to proximal posterior descending artery, saphenous vein graft to diagonal artery.SURGEON: MAREN ChrisISTANT(S): ANESTHESIA: OPERATIVE PROCEDURE: The patient was taken to the operating room, placed in supine position. Satisfactory endotracheal anesthesia was administered. Intravenous lines were inserted. Procedural pause was performed. Prepping and draping was done. Median sternotomy was performed. Left pleura was opened. Left internal mammary artery was harvested in pedicled manner. Vein was harvested simultaneously from the leg. Heparin was administered. ACT was confirmed. Pericardium was opened. Pericardial stays were taken. Aorta was cannulated with a 22 size cannula. Right atrium was cannulated with 2-stage cannula. The patient was placed on complete cardiopulmonary bypass. Distal coronary targets were identified, and needle tack vent was placed in the ascending aorta. Aorta was then cross-clamped and 1 L of cold blood antegrade cardioplegia was administered. Heart arrested well. Thereafter, subsequent doses of cardioplegia were administered at regular intervals through the vein graft in antegrade manner. Heart was initially rotated to identify the posterior descending artery. A 5 mm arteriotomy was performed. Vein was spatulated, prepared, and anastomosed to this with 6-0 Prolene. Thereafter, the heart was distended, vein was measured to length. A 4 mm punch was used to make a hole in the ascending aorta. Vein was anastomosed to the ascending aorta using 6-0 Prolene. The diagonal vessel was identified. A 5 mm arteriotomy was performed. Vein was spatulated, prepared, and anastomosed to this vessel using 7-0 Prolene. Thereafter, the heart was distended, vein was measured to length. A 4 mm punch was used to make a hole in the ascending aorta. Vein was anastomosed to the ascending aorta using 6-0 Prolene. The mid left anterior descending artery was identified. A 5 mm arteriotomy was performed. Vein was spatulated, prepared, and anastomosed to this vessel using 7-0 Prolene. The patient was then placed in reverse Trendelenburg position. Root vent was kept on high suction. The aortic cross-clamp was released. Heart picked up in slow sinus rhythm. Temporary epicardial and atrial wires were applied. The patient was atrially paced at 90 beats per minute. Ventilation was resumed. The patient was systemically on 37 degrees Celsius and was then weaned off cardiopulmonary bypass without the need for inotropic support. Transesophageal echocardiogram demonstrated good right and left ventricular function, normal ascending aorta and aortic arch, normal valves. Decannulation was performed. Cardiac sites were reinforced. Protamine was administered. Hemostasis was ensured. Mediastinal and pleural tubes were inserted. Sternum was then closed with interrupted steel wires. Subcuticular closure and skin closure was done. Dressing was applied. The patient tolerated the procedure well. The patient was transferred to the intensive care unit in a stable manner.Jc Gaston MD ESTTT: 04/06/2018 11:16 PM ESTDICTATION NUMBER: [id number] JOB NUMBER: [id number]:Kenneth Cheng MD, PhDElectronically Signed by Dr. Jc Gaston 04/10/2018 09:10:09 AM Normal [facility] Preop Checkliston 03-31-2018 Preop Checklist Preop Checklist:Preo p Checklist: Procedure Typecabg NPO [id number] ID Band Onyes Allergy Bandno known allergies Consent Signedpending H&P Completeyes Anesthesia Assessment Completedpending EKG Performedsee results tab Chest X-Ray Performedsee results tab Chlorhexadine Bath Givencompleted morning of surgery Hair Washedno Soap and water bath with hair shampoo the night before surgeryno SCD's Appliednot applicable DARLYN Hose Appliednot ordered Denturesnot applicable Prostheticsnot applicable Hearing Aidsnot applicable Valuables Securedsent with family Glasses / Contactssent with family Cardiovascular Assessment: Apicalregular Radial Pulsespalpable Pedal Pulsespalpable Extremitieswarm Respiratory Assessment: Respirationsregular Air Exchangegood Breath Soundsclear Neurological Assessment: Level of Consciousnessalert Mobilitymoves all extremities Able to Express Selfyes Age Appropriateyes Emotional Statuscalm Electronic Signatures:Christine Martines ([facility]) (Signed 31-Mar-2018 06:10)Authored: Preop Checklist Last Updated: 31-Mar-2018 06:10 by Christine Martines ([facility] N) Normal [facility] RENAL FUNCTION PANELon 03-31 Albumin mass conc 3.9 g/dL Normal 3.4 - 5.0 [facility] Comment on above: Performed By: #### E MRAD ####NO LOCATION NEEDED Anion gap 3 molar conc 16 mmol/L Normal 10 - 20 [facility] Comment on above: Performed By: #### E MRAD ####NO LOCATION NEEDED Calcium mass conc 8.8 mg/dL Normal 8.6 - 10.6 [facility] Comment on above: Performed By: #### E MRAD ####NO LOCATION NEEDED Chloride molar conc 102 mmol/L Normal 98 - 107 [facility] Comment on above: Performed By: #### E MRAD ####NO LOCATION NEEDED Creatinine mass conc 1.35 mg/dL High 0.50 - 1.30 [facility] Comment on above: Performed By: #### E MRAD ####NO LOCATION NEEDED GFR- AM. 64 mL/min/1.73m2 Normal >60 [facility] Comment on above: Result Comment: CALC ULATIONS OF ESTIMATED GFR ARE PERFORMED USING THE MDRD STUDY EQUATION FOR THE IDMS-TRACEABLE CREATININE METHODS. CLIN CHEM 2007;53:766-72 Performed By: #### E MRAD ####NO LOCATION NEEDED GFR-NON AM. 53 mL/min/1.73m2 Abnormal >60 [facility] Comment on above: Performed By: #### E MRAD ####NO LOCATION NEEDED Glucose mass conc 169 mg/dL High 74 - 99 [facility] Comment on above: Performed By: #### E MRAD ####NO LOCATION NEEDED HCO3 molar conc (Bld) 24 mmol/L Normal 21 - 32 [facility] Comment on above: Performed By: #### E MRAD ####NO LOCATION NEEDED Phosphate mass conc 3.9 mg/dL Normal 2.5 - 4.9 [facility] Comment on above: Result Comment: The performance characteristics of phosphorus testing in heparinized plasma have been validated by the individual laboratory site where testing is performed. Testing on heparinized plasma is not approved by the FDA; however, such approval is not necessary. Performed By: #### E MRAD ####NO LOCATION NEEDED Potassium molar conc 5.0 mmol/L Normal 3.5 - 5.3 [facility] Comment on above: Performed By: #### E MRAD ####NO LOCATION NEEDED Sodium molar conc 137 mmol/L Normal 136 - 145 [facility] Comment on above: Performed By: #### E MRAD ####NO LOCATION NEEDED Urea nitrogen mass conc 22 mg/dL Normal 6 - 23 [facility] Comment on above: Performed By: #### E MRAD ####NO LOCATION NEEDED Albumin mass conc 4.1 g/dL Normal 3.4 - 5.0 [facility] Comment on above: Performed By: #### E MRAD ####NO LOCATION NEEDED Anion gap 3 molar conc 19 mmol/L Normal 10 - 20 [facility] Comment on above: Performed By: #### E MRAD ####NO LOCATION NEEDED Calcium mass conc 9.4 mg/dL Normal 8.6 - 10.6 [facility] Comment on above: Performed By: #### E MRAD ####NO LOCATION NEEDED Chloride molar conc 103 mmol/L Normal 98 - 107 [facility] Comment on above: Performed By: #### E MRAD ####NO LOCATION NEEDED Creatinine mass conc 1.50 mg/dL High 0.50 - 1.30 [facility] Comment on above: Performed By: #### E MRAD ####NO LOCATION NEEDED GFR- AM. 57 mL/min/1.73m2 Abnormal >60 [facility] Comment on above: Result Comment: CALC ULATIONS OF ESTIMATED GFR ARE PERFORMED USING THE MDRD STUDY EQUATION FOR THE IDMS-TRACEABLE CREATININE METHODS. CLIN CHEM 2007;53:766-72 Performed By: #### E MRAD ####NO LOCATION NEEDED GFR-NON AM. 47 mL/min/1.73m2 Abnormal >60 [facility] Comment on above: Performed By: #### E MRAD ####NO LOCATION NEEDED Glucose mass conc 196 mg/dL High 74 - 99 [facility] Comment on above: Performed By: #### E MRAD ####NO LOCATION NEEDED HCO3 molar conc (Bld) 21 mmol/L Normal 21 - 32 [facility] Comment on above: Performed By: #### E MRAD ####NO LOCATION NEEDED Phosphate mass conc 3.2 mg/dL Normal 2.5 - 4.9 [facility] Comment on above: Result Comment: The performance characteristics of phosphorus testing in heparinized plasma have been validated by the individual laboratory site where testing is performed. Testing on heparinized plasma is not approved by the FDA; however, such approval is not necessary. Performed By: #### E MRAD ####NO LOCATION NEEDED Potassium molar conc 5.2 mmol/L Normal 3.5 - 5.3 [facility] Comment on above: Performed By: #### E MRAD ####NO LOCATION NEEDED Sodium molar conc 138 mmol/L Normal 136 - 145 [facility] Comment on above: Performed By: #### E MRAD ####NO LOCATION NEEDED Urea nitrogen mass conc 23 mg/dL Normal 6 - 23 [facility] Comment on above: Performed By: #### E MRAD ####NO LOCATION NEEDED Albumin mass conc Canceled Normal [facility] Comment on above: Order Comment: TEST RENAL FUNCTION PANEL WAS CANCELLED, 03/31/2018 14:47 ?Cancel Reason:Discontinued. Performed By: #### E MRAD ####NO LOCATION NEEDED Anion gap 3 molar conc Canceled Normal [facility] Comment on above: Order Comment: TEST RENAL FUNCTION PANEL WAS CANCELLED, 03/31/2018 14:47 ?Cancel Reason:Discontinued. Performed By: #### E MRAD ####NO LOCATION NEEDED Calcium mass conc Canceled Normal [facility] Comment on above: Order Comment: TEST RENAL FUNCTION PANEL WAS CANCELLED, 03/31/2018 14:47 ?Cancel Reason:Discontinued. Performed By: #### E MRAD ####NO LOCATION NEEDED Chloride molar conc Canceled Normal [facility] Comment on above: Order Comment: TEST RENAL FUNCTION PANEL WAS CANCELLED, 03/31/2018 14:47 ?Cancel Reason:Discontinued. Performed By: #### E MRAD ####NO LOCATION NEEDED Creatinine mass conc Canceled Normal [facility] Comment on above: Order Comment: TEST RENAL FUNCTION PANEL WAS CANCELLED, 03/31/2018 14:47 ?Cancel Reason:Discontinued. Performed By: #### E MRAD ####NO LOCATION NEEDED GFR- AM. Canceled Normal [facility] Comment on above: Order Comment: TEST RENAL FUNCTION PANEL WAS CANCELLED, 03/31/2018 14:47 ?Cancel Reason:Discontinued. Result Comment: CALC ULATIONS OF ESTIMATED GFR ARE PERFORMED USING THE MDRD STUDY EQUATION FOR THE IDMS-TRACEABLE CREATININE METHODS. CLIN CHEM 2007;53:766-72 Performed By: #### E MRAD ####NO LOCATION NEEDED GFR-NON AM. Canceled Normal [facility] Comment on above: Order Comment: TEST RENAL FUNCTION PANEL WAS CANCELLED, 03/31/2018 14:47 ?Cancel Reason:Discontinued. Performed By: #### E MRAD ####NO LOCATION NEEDED Glucose mass conc Canceled Normal [facility] Comment on above: Order Comment: TEST RENAL FUNCTION PANEL WAS CANCELLED, 03/31/2018 14:47 ?Cancel Reason:Discontinued. Performed By: #### E MRAD ####NO LOCATION NEEDED HCO3 molar conc (Bld) Canceled Normal [facility] Comment on above: Order Comment: TEST RENAL FUNCTION PANEL WAS CANCELLED, 03/31/2018 14:47 ?Cancel Reason:Discontinued. Performed By: #### E MRAD ####NO LOCATION NEEDED Phosphate mass conc Canceled Normal [facility] Comment on above: Order Comment: TEST RENAL FUNCTION PANEL WAS CANCELLED, 03/31/2018 14:47 ?Cancel Reason:Discontinued. Result Comment: The performance characteristics of phosphorus testing in heparinized plasma have been validated by the individual laboratory site where testing is performed. Testing on heparinized plasma is not approved by the FDA; however, such approval is not necessary. Performed By: #### E MRAD ####NO LOCATION NEEDED Potassium molar conc Canceled Normal [facility] Comment on above: Order Comment: TEST RENAL FUNCTION PANEL WAS CANCELLED, 03/31/2018 14:47 ?Cancel Reason:Discontinued. Performed By: #### E MRAD ####NO LOCATION NEEDED Sodium molar conc Canceled Normal [facility] Comment on above: Order Comment: TEST RENAL FUNCTION PANEL WAS CANCELLED, 03/31/2018 14:47 ?Cancel Reason:Discontinued. Performed By: #### E MRAD ####NO LOCATION NEEDED Urea nitrogen mass conc Canceled Normal [facility] Comment on above: Order Comment: TEST RENAL FUNCTION PANEL WAS CANCELLED, 03/31/2018 14:47 ?Cancel Reason:Discontinued. Performed By: #### E MRAD ####NO LOCATION NEEDED TH CHEST 1 VIEWon 03-31-2018 TH CHEST 1 VIEW Name: DON ELKINS STUDY:CHEST 1 VIEW; 03/31/2018 3:30 pm INDICATION:Signs/Symptoms: CT surgery. COMPARISON:03/19/2018 ORDERING CLINICIAN:GERMAN JACK FINDINGS:ET tube is terminating at the level of clavicle heads.Right IJSwan-Jose catheter is terminating in the right main pulmonary artery.Mediastinal drain and left-sided chest tube are in place. Patient is status post median sternotomy. The cardiac silhouette sizeis enlarged. Right basilar pleural effusion and atelectasis. Low lungvolumes and bronchovascular crowding with no edema. No sizablepneumothorax. No acute osseous abnormality. IMPRESSION:1. Medical appliances and postsurgical changes as described above.2. Right basilar pleural effusion and atelectasis. Electronically signed by: EDYTA ARIAS MD Normal [facility] ANTICARDIOLIPIN ABon 018 CAROLYN IGM 0.2 MPL U/mL Normal 0.0 - 20.0 [facility] Comment on above: Result Comment: Elev ated levels of IgM anti-cardiolipin on 2 occasions at least 12 weeks apart are laboratory criteria for anti-phospholipid syndrome according to an international consensus (J Thromb Haemost 2006 4:295). IgM anti-cardiolipin tends to give false positive results in the low positive range, especially in the presence of rheumatoid factor or cryoglobulins. Performed By: #### A CA2 ####[id number] [place] [address] CAROLYN IGA 0.5 APL U/mL Normal 0.0 - 20.0 [facility] Comment on above: Result Comment: Elev ated levels of IgA anti-cardiolipin have not been included in the laboratory criteria for anti-phospholipid syndrome according to an international consensus (J Thromb Haemost 2006 4:295). It may be helpful in identifying subgroups of patients at risk for specific clinical manifestations of anti-phospholipid syndrome. Performed By: #### A CA2 ####[id number] [place] [address] CAROLYN IGG <1.6 Normal 0.0 - 20.0 [facility] Comment on above: Result Comment: Elev ated levels of IgG anti-cardiolipin on 2 occasions at least 12 weeks apart are laboratory criteria for anti-phospholipid syndrome according to an international consensus (J Thromb Haemost 2006 4:295). Performed By: #### A CA2 ####[id number] [place] [address] BETA 2 GLYCOPROTEIN ABon B2 GLYCOPROTEIN AB IGM 0.3 U/mL Normal 0.0 - 20.0 [facility] Comment on above: Result Comment: Elev ated levels of IgM anti-Beta 2 Glycoprotein-I on 2 occasions at least 12 weeks apart are laboratory criteria for anti-phospholipid syndrome according to an international consensus (J Thromb Haemost 2006 4:295). IgM anti-Beta 2 Glycoprotein-I tends to give false positive results in the low positive range, especially in the presence of rheumatoid factor or cryoglobulins. Performed By: #### B 2GLY ####[id number] [place] [address] B2 GLYCOPROTEIN AB IGA <0.6 Normal 0.0 - 20.0 [facility] Comment on above: Result Comment: Elev ated levels of IgA anti-Beta 2 Glycoprotein-I have not been included in the laboratory criteria for anti-phospholipid syndrome according to an international consensus (J Thromb Haemost 2006 4:295). It may be helpful in identifying subgroups of patients at risk for specific clinical manifestations of anti-phospholipid syndrome. A significant proportion of IgA anti-Beta 2 Glycoprotein- positive tests has no apparent association with any clinical manifestation of anti-phospholipid syndrome. Performed By: #### B 2GLY ####[id number] [id number] B2 GLYCOPROTEIN AB IGG <1.4 Normal 0.0 - 20.0 [facility] Comment on above: Result Comment: Elev ated levels of IgG anti-Beta 2 Glycoprotein-I on 2 occasions at least 12 weeks apart are laboratory criteria for anti-phospholipid syndrome according to an international consensus (J Thromb Haemost 2006 4:295). Performed By: #### B 2GLY ####[id number] [place] [address] CBCon 03-30-2018 Erythrocyte distribution width Auto Ratio (RBC) 12.8 % Normal 11.5 - 14.5 [facility] Comment on above: Performed By: #### C BC ####[id number] [place] [address] Hematocrit Auto Volume Fraction (Bld) 43.0 % Normal 41.0 - 52.0 [facility] Comment on above: Performed By: #### C BC ####[id number] [place] [address] Hemoglobin mass conc (Bld) 14.5 g/dL Normal 13.5 - 17.5 [facility] Comment on above: Performed By: #### C BC ####[id number] [place] [address] MCHC Auto mass conc (RBC) 33.7 g/dL Normal 32.0 - 36.0 [facility] Comment on above: Performed By: #### C BC ####[id number] [place] [address] MCV Auto Entitic volume (RBC) 92 fL Normal 80 - 100 [facility] Comment on above: Performed By: #### C BC ####[id number] [place] [address] Nucleated RBC/100 WBC Ratio (Bld) 0.0 /100 WBC Normal 0.0-0.0 [facility] Comment on above: Performed By: #### C BC ####[id number] [place] [address] Platelets Auto #/vol (Bld) 238 10*3/uL Normal 150 - 450 [facility] Comment on above: Performed By: #### C BC ####[id number] [place] [address] RBC Auto #/vol (Bld) 4.66 x10E12/L Normal 4.50 - 5.90 [facility] Comment on above: Performed By: #### C BC ####[id number] [place] [address] WBC Auto #/vol (Bld) 8.1 10*3/uL Normal 4.4 - 11.3 [facility] Comment on above: Performed By: #### C BC ####[id number] [place] [address] Erythrocyte distribution width Auto Ratio (RBC) 12.8 % Normal 11.5 - 14.5 [facility] Comment on above: Performed By: #### C BC ####[id number] [place] [address] Hematocrit Auto Volume Fraction (Bld) 41.1 % Normal 41.0 - 52.0 [facility] Comment on above: Performed By: #### C BC ####[id number] [place] [address] Hemoglobin mass conc (Bld) 13.7 g/dL Normal 13.5 - 17.5 [facility] Comment on above: Performed By: #### C BC ####[id number] [place] [address] MCHC Auto mass conc (RBC) 33.3 g/dL Normal 32.0 - 36.0 [facility] Comment on above: Performed By: #### C BC ####[id number] [place] [address] MCV Auto Entitic volume (RBC) 93 fL Normal 80 - 100 [facility] Comment on above: Performed By: #### C BC ####[id number] [place] [address] Nucleated RBC/100 WBC Ratio (Bld) 0.0 /100 WBC Normal 0.0-0.0 [facility] Comment on above: Performed By: #### C BC ####[id number] [place] [address] Platelets Auto #/vol (Bld) 233 10*3/uL Normal 150 - 450 [facility] Comment on above: Performed By: #### C BC ####[id number] [place] [address] RBC Auto #/vol (Bld) 4.43 x10E12/L Low 4.50 - 5.90 [facility] Comment on above: Performed By: #### C BC ####[id number] [place] [address] WBC Auto #/vol (Bld) 9.2 10*3/uL Normal 4.4 - 11.3 [facility] Comment on above: Performed By: #### C BC ####[id number] [place] [address] Clinical Intervention - Jude dey 03-30-2018 Clinical Intervention - Pharmacy Pharmacist's Clinical Intervention:Active and Pending Medications:Nitroglycerin 50 mg/ D5W 250 mL Infusion, Solution (TRIDIL)IntraVenous Initial Admin Rate = 3 mL/hr mcg/minNotes from Pharmacy: Initial DOSE Rate = 10 mcg/min = 3 mL/hr., 30-Mar-2018,Active Pharmacist intervention: Contacted physicianType of recommendation: Contacted BELT SPLICER to clarify lack of titration orders. Shestates since nursing cannot titrate on their own she omitted titrationparameters. She will enter new orders as titration is necessaryIs this intervention medication reconciliation related: NoExpected outcome and basis: Order clarified or correctedTime Required: 1 - 5 minutes Electronic Signatures:Soni Whitman (FORMERLY [facility]) (Signed 30-Mar-2018 12:11)Authored: Pharmacist's Clinical Intervention Last Updated: 30-Mar-2018 12:11 by Soni Whitman (FORMERLY [facility] [place]) Normal [facility] Daily Progress Note-Cardiosandra chavez 03-30-2018 Protein mass conc Service: Cardiology Subjective Data:DON ELKINS is a 67 year old Male who is Hospital Day # 13. Additional Information:Patient having chest pressure overnight, started on nitro gtt with relief.Still having chest pressure this AM, increase drip to 10mcg/min. Low thresholdto unit. OR tomorrow, with Dr Gaston - 2nd Case. Per endocrine: glargine 20unitstonight, hydrocortisone 30mg PO at 0500, cortisol level at 0700, [id number] IV at 0800 and through surgery. [facility] - OR tomorrow, 2nd case- glargine 20 units tonight- trend troponins On day of CABG surgery 03/31 Hydrocortisone 30mg PO 0500Check Cortisol level at 0700ALSOStart Hydrocortisone 25mg IV q6h starting at 0800Call Endocrine on the day of surgery to keep them closely involved Objective Data: Objective Information: T [id number]/6596% Date/Time03/30 11: 13: 11: 13: 11:14Range(35.8C - 36.1C ) (74 - 91 ) (17 - 18 ) (120 - 159 )/ (63 - 92 ) (92%- 99% ) Awtjnyn02/12 3:51: Weight in kg (Weight (kg)) 107.8105/30 3:51: Weight in lbs ((lbs)) 237.8 Physical Exam: Constitutional: Resting in bed, NADHead/Neck: No JVDRespiratory/Thorax: CTABCardiovascular: RRR, S1 I6Huvhyevyaitihegi: soft, NT/NDExtremities: No LE edemaNeurological: alert and oriented c7Udwfzjqpakhuh: Appropriate mood and behaviorSkin: psoriasis plaque over elbows and knees; otherwise warm and dry Medication: Medications: Continuous Medications -- 1. Nitroglycerin 50 mg/ D5W 250 mL Infusion: 10 mcg/min IntraVenous 2. Sodium Chloride 0.9% .: 250 mL IntraVenous Scheduled Medications -- 1. Aspirin Chewable: 81 mg Oral Daily2. Atorvastatin: 40 mg Oral Daily3. Carvedilol: 12.5 mg Oral 2 Times a Day4. Chlorhexidine Gluconate 0.12% Mucous Mem: 15 mL Topical Morning andEvening5. Citalopram: 20 mg Oral Daily6. Docusate 50 mg - Senna 8.6 m tablet(s) Oral 2 Times a Day7. Fludrocortisone: 0.05 mg Oral 8. Heparin (Repeat Bolus) Injectable: 4000 unit(s) IntraVenous Push Every 0Airev1. Hydrocortisone: 10 mg Oral 10. Hydrocortisone: 5 mg Oral 11. Hydrocortisone: 2.5 mg Oral 12. Insulin Glargine (Lantus) Injectable: 20 unit(s) SubCutaneous Every 79Hvupn30. Insulin Lispro (HumaLOG) Injectable: 12 unit(s) SubCutaneous 3 Times aDay Before Meals14. Insulin Lispro Mild Corrective Scale: unit(s) SubCutaneous 3 Times a DayBefore Meals15. Levothyroxine: 150 microgram(s) Oral Daily16. Mupirocin 2%: 0.5 application(s) Each Nostril 2 Times a Day17. Pantoprazole: 40 mg Oral Daily18. rOPINIRole: 6 mg Oral 19. Sodium Chloride 0.65% Nasal [place]: 2 spray(s) Each Nostril 2 Times aDay PRN Medications -- 1. Dextrose 50% in Water Injectable: 25 gram(s) IntraVenous Push Every 99Qtkjstb3. Glucagon Injectable: 1 mg IntraMuscular Every 15 Minutes3. Nitroglycerin SubLingual: 0.4 mg SubLingual Every 5 Minutes4. Polyethylene Glycol: 17 gram(s) Oral Daily Recent Lab Results: Results: I have reviewed these laboratory results: Glucose_POCT Trending View [id number] 12:06:00 30-Mar-2018 07:46:00Glucose-NSZQ936 H 153 H Troponin I, Serum Trending View [id number] 09:37:00 30-Mar-2018 03:58:00Troponin I, Serum0.94 H 0.54 HHLab Comment: TROP CALLED RB TO SWEETIE MOLINA, 03/30/2018 07:28 Radiology Results: Results: Conclusion:Electrocardiogram 12 Lead [Mar 30 2018 11:30AM] Assessment and Plan:Assessment:67 yo M with HTN, DLD, T2DM, Addisson's, GERD, prostate ca s/p prostatectomy [id number], hypothyroidism, psoriasis, and most recently diagnosed with a PE andmultivessel CAD transferred to cardiology at [facility] from [facility] 03/18 for CABG eval. Multiple PEs- addison. Segmental and subsegmental PE on CT- Repeat TTE --> No Right dilation or strain- 2V CXR --> No radiographic evidence of acute cardiopulmonary process.- Appreciate Pulmonary assistance- per pulm NO need for repeat CT chest prior to OR- c/w Heparin gtt- 03/23 IVC Filter placement- Delay CABG for 1 week [address]ative plan with Dr. Gaston Monica03/31- plan for 3-6 months anticoagulation (1st episode unprovoked PE)- Hypercoagulable work up negative- PSA <10 Multivessel CAD- 03/19 TTE EF 60-65%, impaired relaxation- EKG without acute ST T wave changes- cont Atorva 40 mg- Cardiac Cath uploaded: 03/16 at [facility] LM: 10-20%, LAD prox: 30%, LAD mid:95%, Diag 3rd: 99%, RCA: 85 %, PLV: 50%, Circ: 95%- Plan for CABG with Dr. Gaston on 03/31, 2nd case- early AM of 03/30, started having chest pressure, resolved with nitro gtt ey33qmm/min- troponins: <0.02 -> 0.54 -> 0.94 s/p recent root canal- 03/19 orthopantogram: suspected periapical abscess of R maxillary premolar- dental consult -> no cause of possible infection, no extraction prior to OR T2DM- Holding home Metformin- SSI and hypoglycemia protocol- A1C 7.9%- BS 153-244 over past 24 hours- 03/22 Lantus 20 units x1- 03/24 Increase Lantus to 25 units and add Lispro 6 units before meals- 03/25 Lantus 30 units and Lispro 8 units TID- 03/27 increase lispro to 10 units TID AC- 03/30 decrease lantus to 30units tonight [facility]'s disease- 03/22 Reduce fludrocortisone to 0.05 mg MWFSun- 03/20 Reduce hydrocortisone to 10mg/5mg/2.5mg- 03/23 While NPO: Hydrocortisone 30mg/10mg/5mg- 03/24 Back to Hydrocortisone 10mg/5mg/2.5mg- ON DAY OF SURGERY: FRIDAY- Hydrocortisone 30mg PO 0500- Check Cortisol level at 0700- Start Hydrocortisone 25mg IV q6h starting at 0800- Call Endocrine on the day of surgery to keep them closely involved GERD- Continue home PPI HTN- Holding LAUREN in periop period- 03/20 Increase Carvedilol to 12.5mg BID- SBP 120s-150s over past 24 hours DLD- Atorva 40mg- lipids 155/44/82/141 HypothyroidismTSH 2.51- Continue home levothyroxine TIFFANI- MICHELLE- Adm Creatinine 1.42- Today 1.32 [1.44, 1.48, 1.46, 1.40, 1.52, 1.24, 1.53, 1.66, 1.38, 1.36] DVT ppx: heparin gttCode status: Full Dispo:pending CABG Friday Seen and discussed with Dr. Rothman Signature/Cosignature/Attestat ion:Provider/Team Contact Info-Pager [id number]/ Additional FindingsUnstable angina overnight that resolved with IV nitroglycerin, chest and rightarm pain went to 0/[address] gaston notified, but unable to do surgerysooner. CICU and HF ICU at capacity. If chest pain recurs, may need to beconsidered for IABP . Plan for now is for CABG 03/31/2018. Low threshold forICU transfer.Patent with [facility]'s and appreciate detailed steroid management plan perEndocrinology Electronic Signatures:Latisha Rothman) (Signed 30-Mar-2018 18:09)Authored: Signature/Cosignature/Attestat ionCo-Signer: Service, Subjective Data, Objective Data, Assessment and Plan,Signature/Cosignature/Att estationPamKate abraham ([employer] PROFESSIONAL-REPLANTER) (Signed 30-Mar-2018 15:06)Authored: Service, Subjective Data, Objective Data, Assessment and Plan,Signature/Cosignature/Att estation Last Updated: 30-Mar-2018 18:09 by Latisha Rothman) Normal [facility] Daily Progress Note-Endocrin ologyon 03-30-2018 Protein mass conc Consult Type: subseq uent visit/care Service: Endocrinology Subjective Data:DON ELKINS is a 67 year old Male who is Hospital Day # 13. Objective Data: Objective Information:T PPDUBgP0Hihhd02.12990960/6596% Date/Time03/30 11: 13: 11: 13: 11:14Range(35.8C - 36.1C ) (74 - 91 ) (17 - 18 ) (120 - 159 )/ (63 - 92 ) (92%- 99% ) Pain with Activity reported at 03/30 7:51: 3Pain at Rest reported at 03/30 7:51: 3 Physical Exam: Constitutional: Well developed, awake/alert/oriented x3, no distress, alert andcooperativeGastrointestinal : Nondistended, soft, non-tender, no rebound tenderness orguarding, no masses palpable, no organomegaly, +BS, no bruitsSkin: Warm and dry, no lesions, no rashes Medication: Medications: Continuous Medications -- 1. Nitroglycerin 50 mg/ D5W 250 mL Infusion: 10 mcg/min IntraVenous 2. Sodium Chloride 0.9% .: 250 mL IntraVenous Scheduled Medications -- 1. Aspirin Chewable: 81 mg Oral Daily2. Atorvastatin: 40 mg Oral Daily3. Carvedilol: 12.5 mg Oral 2 Times a Day4. Chlorhexidine Gluconate 0.12% Mucous Mem: 15 mL Topical Morning andEvening5. Citalopram: 20 mg Oral Daily6. Docusate 50 mg - Senna 8.6 m tablet(s) Oral 2 Times a Day7. Fludrocortisone: 0.05 mg Oral 8. Heparin (Repeat Bolus) Injectable: 4000 unit(s) IntraVenous Push Every 7Blmcs8. Hydrocortisone: 10 mg Oral 10. Hydrocortisone: 5 mg Oral 11. Hydrocortisone: 2.5 mg Oral 12. Insulin Glargine (Lantus) Injectable: 20 unit(s) SubCutaneous Every 68Cxdqo99. Insulin Lispro (HumaLOG) Injectable: 12 unit(s) SubCutaneous 3 Times aDay Before Meals14. Insulin Lispro Mild Corrective Scale: unit(s) SubCutaneous 3 Times a DayBefore Meals15. Levothyroxine: 150 microgram(s) Oral Daily16. Mupirocin 2%: 0.5 application(s) Each Nostril 2 Times a Day17. Pantoprazole: 40 mg Oral Daily18. rOPINIRole: 6 mg Oral 19. Sodium Chloride 0.65% Nasal [place]: 2 spray(s) Each Nostril 2 Times aDay PRN Medications -- 1. Dextrose 50% in Water Injectable: 25 gram(s) IntraVenous Push Every 72Zckxjkt3. Glucagon Injectable: 1 mg IntraMuscular Every 15 Minutes3. Nitroglycerin SubLingual: 0.4 mg SubLingual Every 5 Minutes4. Polyethylene Glycol: 17 gram(s) Oral Daily Recent Lab Results: Results: I have reviewed these laboratory results: Glucose_POCT Trending View [id number]-[id number] 12:06:00 30-Mar-2018 07:46:00 29-Mar-2018 20:49:00 29-Mar-2018 17:04:00 29-Mar-2018 13:15:00 29-Mar-2018 07:09:00 [id number]-Qdy-111855:50:00 28-Mar-2018 16:38:00Glucose-LABQ628 H 153 H 244 H 258 H 217 H 186 H 271H 363 H Renal Function Panel Trending View [id number]-[id number] 19:58:00 28-Mar-2018 21:29:00Glucose, Ncjhi135 H 220 BYJ260 L 139K4.6 4.5CL99 103Bicarbonate, Serum19 L 27Anion Gap, Serum19 34CTE98 H 83MVDWX2.32 H 1.44 HGFR-Non Yxdasuza16 A 49 AGFR- Vkirhmyp06 59 ACalcium, Serum9.3 9.5Phosphorus, Serum4.2 4.0ALB3.9 4.0 Assessment and Plan:Assessment: Mr. Elkins is a 67 yo WM with no known history of CAD, who has a past medicalhistory of HTN, HLD, T2DM, Brigida's disease, hypothyroidism, COPD, AKASH onCPAP, prostate ca s/p prostatectomy in 2011, and psoriasis who was [facility]to [facility] on 03[facility] forCABG eval.Endocrine consulted fr evaluation of [facility] disease and treatment periop Patient was on supra-therapeutic dose of HCT 20-0-20 , fludrocortisone 0.1 ,mgdailyPatient has uncontrolled HTN and uncontrolled BSMost likely tomorrow (03/23) IVC filter placement Recommendations:1. [facility]'s Disease-- Fludrocortisone 0.05 mg 4 times weekly ( and friday)-- Tomorrow please give Hydrocortisone 30 mg by mouth once at 5 am , check thecortisol level at 7 am , then continue Hydrocortisone as 25 mg IV n0psuzfrqifclrj as of 8 am. 2. T2DM-- Decrease lantus to 20 units tonight-- Lispro to 12 units TIDAC to be held off after dinner time dose tonight-- Continue ISS 2 units for every 50 above 150-- POCT AC and qHs-- Hypoglycemia protocol--Diabetic diet--will follow Please page with questions [phone] Patient seen and examined, plan discussed with Dr Quevedo Signature/Cosignature/Attestat ion:Attending AttestationI saw and evaluated the patient. I personally obtainedthe judge and critical portions of the history and physical exam or wasphysically present for judge and critical portions performed by theresident/fellow. I reviewed the resident/fellows documentation and discussedthe patient with the resident/fellow. I agree with the resident/fellowsmedical decision making as documented in the residents note.I personally evaluated the patient (as noted in the above attestation) [id number] Electronic Signatures:Starr Quevedo) (Signed 31-Mar-2018 10:06)Authored: Signature/Cosignature/Attestat ionCo-Signer: Service, Subjective Data, Objective Data, Assessment and Plan,Signature/Cosignature/Att estationHasmukh Stephenson (Resident)) (Signed 30-Mar-2018 15:28)Authored: Service, Subjective Data, Objective Data, Assessment and Plan,Signature/Cosignature/Att estation Last Updated: 31-Mar-2018 10:06 by Starr Quevedo) Normal [facility] GLUCOSE-POCTon 03-30-2018 Glucose mass conc 207 mg/dL High 74 - 99 [facility] Comment on above: Performed By: #### G BECKY ####[id number] [place] [address] Glucose mass conc 216 mg/dL High 74 - 99 [facility] Comment on above: Performed By: #### G BECKY ####[id number] [place] [address] Glucose mass conc 205 mg/dL High 74 - 99 [facility] Comment on above: Performed By: #### G BECKY ####[id number] [place] [address] Glucose mass conc 153 mg/dL High - 99 [facility] Comment on above: Performed By: #### G BECKY ####[id number] [place] [address] HEPARIN ASSAY,UFHon 03-30-20 18 HEPARIN ASSAY,UFH 0.4 IU/mL Normal [facility] Comment on above: Result Comment: The therapeutic reference range for UFH may be either 0.3-0.6 IU/mL or 0.3-0.7 IU/mL based on the clinical setting for anticoagulant therapy and the associated nomogram used. For heparin dosing guidelines based on clinical scenario and Heparin Assay results, please refer to local Pharmacy and the [facility] Guidelines for Anticoagulation therapy available on the [facility] intranet at:[email or web address] Performed By: #### H AUF ####[id number] [place] [address] LUPUS ANTICOAG. WITH INTERPR ETATION[JACK]on 03-30-2018 LA INTERPRETATION SEE BELOW Normal [facility] Comment on above: Result Comment: No e vidence of lupus anticoagulant in these assays (DRVVT and Silica Clotting Time (SCT)). Assay interferences may occur in the presence of factor deficiency/inhibitor and/or anticoagulants. For patients on anti-Vitamin K therapy, repeating DRVVT testing might be indicated when the patient is off anti-vitamin K therapy. The DRVVT assay contains a heparin neutralizer up to 1.0 U/mL. Higher concentrations of heparin may cause interferences. SCT results are not affected by UF heparin up to 0.5 U/mL and LMW Heparin up to 1.0 U/mL. Higher concentrations of heparin may cause interferences. Correlation with clinical findings and clinical history is necessary to assess significance of results in an individual patient. Performed By: #### L AI ####[id number] [place] [address] SCT CONFIRMATION 1.10 RATIO Normal [facility] Comment on above: Performed By: #### L AI ####[id number] [place] [address] SCT SCREEN 0.87 RATIO Normal [facility] Comment on above: Performed By: #### L AI ####[id number] [id number] SCT TEST RATIO 0.79 RATIO Normal <=1.16 [facility] Comment on above: Performed By: #### L AI ####[id number] [id number] DRVVT CONFIRMATION 0.98 RATIO Normal [facility] Comment on above: Performed By: #### L AI ####[id number] [id number] DRVVT SCREEN 1.02 RATIO Normal [facility] Comment on above: Performed By: #### L AI ####[id number] [id number] DRVVT TEST RATIO 1.03 RATIO Normal <=1.20 [facility] Comment on above: Performed By: #### L AI ####[id number] [place] [address] RENAL FUNCTION PANELon 03-30 Albumin mass conc 4.1 g/dL Normal 3.4 - 5.0 [facility] Comment on above: Performed By: #### R ENAL ####[id number] [place] [address] Anion gap 3 molar conc 16 mmol/L Normal 10 - 20 [facility] Comment on above: Performed By: #### R ENAL ####[id number] [place] [address] Calcium mass conc 9.5 mg/dL Normal 8.6 - 10.6 [facility] Comment on above: Performed By: #### R ENAL ####[id number] [place] [address] Chloride molar conc 101 mmol/L Normal 98 - 107 [facility] Comment on above: Performed By: #### R ENAL ####[id number] [place] [address] Creatinine mass conc 1.68 mg/dL High 0.50 - 1.30 [facility] Comment on above: Performed By: #### R ENAL ####[id number] [place] [address] GFR- AM. 50 mL/min/1.73m2 Abnormal >60 [facility] Comment on above: Result Comment: CALC ULATIONS OF ESTIMATED GFR ARE PERFORMED USING THE MDRD STUDY EQUATION FOR THE IDMS-TRACEABLE CREATININE METHODS. CLIN CHEM 2007;53:766-72 Performed By: #### R ENAL ####[id number] [place] [address] GFR-NON AM. 41 mL/min/1.73m2 Abnormal >60 [facility] Comment on above: Performed By: #### R ENAL ####[id number] [place] [address] Glucose mass conc 193 mg/dL High 74 - 99 [facility] Comment on above: Performed By: #### R ENAL ####[id number] [place] [address] HCO3 molar conc (Bld) 23 mmol/L Normal 21 - 32 [facility] Comment on above: Performed By: #### R ENAL ####[id number] [place] [address] Phosphate mass conc 4.5 mg/dL Normal 2.5 - 4.9 [facility] Comment on above: Result Comment: The performance characteristics of phosphorus testing in heparinized plasma have been validated by the individual laboratory site where testing is performed. Testing on heparinized plasma is not approved by the FDA; however, such approval is not necessary. Performed By: #### R ENAL ####[id number] [place] [address] Potassium molar conc 4.4 mmol/L Normal 3.5 - 5.3 [facility] Comment on above: Performed By: #### R ENAL ####[id number] [place] [address] Sodium molar conc 136 mmol/L Normal 136 - 145 [facility] Comment on above: Performed By: #### R ENAL ####[id number] [place] [address] Urea nitrogen mass conc 24 mg/dL High 6 - 23 [facility] Comment on above: Performed By: #### R ENAL ####[id number] [place] [address] TROPONIN Ion 03-30-2018 Troponin I.cardiac mass conc 0.64 ng/mL High 0.00 - 0.03 [facility] Comment on above: Result Comment: LESS THAN 0.04 NG/ML: NEGATIVEREPEAT TESTING IN FOUR TO SIX HOURSIF CLINICALLY INDICATED.0.04 - 0.5 NG/ML: CONSISTENT WITH POSSIBLECARDIAC DAMAGE AND POSSIBLE INCREASEDCLINICAL RISK.SERIAL MEASUREMENTS MAY HELP ASSESS EXTENT OFMYOCARDIAL DAMAGE.>0.5 NG/ML: CONSISTENT WITH CARDIAC DAMAGE,INCREASED CLINICAL RISK AND MYOCARDIALINFARCTION. SERIAL MEASUREMENTS MAY HELPASSESS EXTENT OF MYOCARDIAL DAMAGE..Note: Troponin I testing is performed [facility]. Direct result comparisons should onlybe made within the same method.. Patients receiving more than 5 mg/day of biotin may have interference in test results. A sample should be taken no sooner than eight hours after previous dose. Contact [phone] for additional information.This is a critical result.Per Laboratory policy, critical results for this testonly qualify to the call list once per 24 hours. Performed By: #### T ROP2 ####[id number] [place] [address] Troponin I.cardiac mass conc 0.94 ng/mL High 0.00 - 0.03 [facility] Comment on above: Result Comment: LESS THAN 0.04 NG/ML: NEGATIVEREPEAT TESTING IN FOUR TO SIX HOURSIF CLINICALLY INDICATED.0.04 - 0.5 NG/ML: CONSISTENT WITH POSSIBLECARDIAC DAMAGE AND POSSIBLE INCREASEDCLINICAL RISK.SERIAL MEASUREMENTS MAY HELP ASSESS EXTENT OFMYOCARDIAL DAMAGE.>0.5 NG/ML: CONSISTENT WITH CARDIAC DAMAGE,INCREASED CLINICAL RISK AND MYOCARDIALINFARCTION. SERIAL MEASUREMENTS MAY HELPASSESS EXTENT OF MYOCARDIAL DAMAGE..Note: Troponin I testing is performed using differenttesting methodology at [facility] than at [facility]. Direct result comparisons should onlybe made within the same method.. Patients receiving more than 5 mg/day of biotin may have interference in test results. A sample should be taken no sooner than eight hours after previous dose. Contact [phone] for additional information.This is a critical result.Per Laboratory policy, critical results for this testonly qualify to the call list once per 24 hours. Performed By: #### T ROP2 ####[id number] [place] [address] Troponin I.cardiac mass conc 0.54 ng/mL Critically high 0.00 - 0.03 [facility] Comment on above: Order Comment: TROP CALLED RB TO SWEETIE TRACY, 03/30/2018 07:28 Result Comment: LESS THAN 0.04 NG/ML: NEGATIVEREPEAT TESTING IN FOUR TO SIX HOURSIF CLINICALLY INDICATED.0.04 - 0.5 NG/ML: CONSISTENT WITH POSSIBLECARDIAC DAMAGE AND POSSIBLE INCREASEDCLINICAL RISK.SERIAL MEASUREMENTS MAY HELP ASSESS EXTENT OFMYOCARDIAL DAMAGE.>0.5 NG/ML: CONSISTENT WITH CARDIAC DAMAGE,INCREASED CLINICAL RISK AND MYOCARDIALINFARCTION. SERIAL MEASUREMENTS MAY HELPASSESS EXTENT OF MYOCARDIAL DAMAGE..Note: Troponin I testing is performed using differenttesting methodology at [facility] than at [facility]. Direct result comparisons should onlybe made within the same method.. Patients receiving more than 5 mg/day of biotin may have interference in test results. A sample should be taken no sooner than eight hours after previous dose. Contact [phone] for additional information.TROP CALLED RB TO SWEETIE MOLINA, 03/30/2018 07:28 Performed By: #### T ROP2 ####[id number] [place] [address] Troponin I.cardiac mass conc ng/mL Normal 0.00 - 0.03 [facility] Comment on above: Result Comment: LESS THAN 0.04 NG/ML: NEGATIVEREPEAT TESTING IN FOUR TO SIX HOURSIF CLINICALLY INDICATED.0.04 - 0.5 NG/ML: CONSISTENT WITH POSSIBLECARDIAC DAMAGE AND POSSIBLE INCREASEDCLINICAL RISK.SERIAL MEASUREMENTS MAY HELP ASSESS EXTENT OFMYOCARDIAL DAMAGE.>0.5 NG/ML: CONSISTENT WITH CARDIAC DAMAGE,INCREASED CLINICAL RISK AND MYOCARDIALINFARCTION. SERIAL MEASUREMENTS MAY HELPASSESS EXTENT OF MYOCARDIAL DAMAGE..Note: Troponin I testing is performed using differenttesting methodology at [facility] than at [facility]. Direct result comparisons should onlybe made within the same method.. Patients receiving more than 5 mg/day of biotin may have interference in test results. A sample should be taken no sooner than eight hours after previous dose. Contact [phone] for additional information. Performed By: #### T ROP2 ####[id number] [place] [address] TYPE + SCREENon 03-30-2018 ABO TYPE A Normal [facility] Comment on above: Performed By: #### T +S ####[id number] [place] [address] RH TYPE Positive Normal [facility] Comment on above: Performed By: #### T +S ####[id number] [id number] CBCon 03-29-2018 Erythrocyte distribution width Auto Ratio (RBC) 12.7 % Normal 11.5 - 14.5 [facility] Comment on above: Performed By: #### C BC ####[id number] [place] [address] Hematocrit Auto Volume Fraction (Bld) 40.1 % Low 41.0 - 52.0 [facility] Comment on above: Performed By: #### C BC ####[id number] [place] [address] Hemoglobin mass conc (Bld) 13.6 g/dL Normal 13.5 - 17.5 [facility] Comment on above: Performed By: #### C BC ####[id number] [place] [address] MCHC Auto mass conc (RBC) 33.9 g/dL Normal 32.0 - 36.0 [facility] Comment on above: Performed By: #### C BC ####[id number] [place] [address] MCV Auto Entitic volume (RBC) 92 fL Normal 80 - 100 [facility] Comment on above: Performed By: #### C BC ####[id number] [place] [address] Nucleated RBC/100 WBC Ratio (Bld) 0.0 /100 WBC Normal 0.0-0.0 [facility] Comment on above: Performed By: #### C BC ####[id number] [place] [address] Platelets Auto #/vol (Bld) 232 10*3/uL Normal 150 - 450 [facility] Comment on above: Performed By: #### C BC ####[id number] [place] [address] RBC Auto #/vol (Bld) 4.37 x10E12/L Low 4.50 - 5.90 [facility] Comment on above: Performed By: #### C BC ####[id number] [place] [address] WBC Auto #/vol (Bld) 9.1 10*3/uL Normal 4.4 - 11.3 [facility] Comment on above: Performed By: #### C ####[id number] [place] [address] Daily Progress Note-Cardiosandra chavez 03-29-2018 Protein mass conc Service: Cardiology Subjective Data:DON ELKINS is a 67 year old Male who is Hospital Day # 12. Additional Information: Resting in bed, has been ambulating in halls, hypercoagulable work up pending - plan for OR Saturday 03/31- c/w Heparin gtt Objective Data: Objective Information:T [id number]/9095% Date/Time03/29 12: 12: 12: 12: 12:00Range(36C - 36.4C ) (67 - 92 ) (18 - 20 ) (131 - 161 )/ (70 - 93 ) (92% -96% ) Pain with Activity reported at 03/29 8:00: 0Pain at Rest reported at 03/29 8:00: 0 Betevfb80/11 4:20: Weight in kg (Weight (kg)) 107.7105/29 4:20: Weight in lbs ((lbs)) 237.4 Physical Exam: Constitutional: Resting in bed, NADHead/Neck: No JVDRespiratory/Thorax: CTABCardiovascular: RRR, S1 F5Ktehipkfsvsokmdo: soft, NT/NDExtremities: No LE edemaNeurological: alert and oriented o7Pmmcajlbunhhb: Appropriate mood and behaviorSkin: psoriasis plaque over elbows and knees; otherwise warm and dry Medication: Medications: Continuous Medications -- 1. Sodium Chloride 0.9% .: 250 mL IntraVenous Scheduled Medications -- 1. Aspirin Chewable: 81 mg Oral Daily2. Atorvastatin: 40 mg Oral Daily3. Carvedilol: 12.5 mg Oral 2 Times a Day4. Citalopram: 20 mg Oral Daily5. Docusate 50 mg - Senna 8.6 m tablet(s) Oral 2 Times a Day6. Fludrocortisone: 0.05 mg Oral 7. Heparin (Repeat Bolus) Injectable: 4000 unit(s) IntraVenous Push Every 5Kuojd0. Hydrocortisone: 10 mg Oral 9. Hydrocortisone: 5 mg Oral 10. Hydrocortisone: 2.5 mg Oral 11. Insulin Glargine (Lantus) Injectable: 30 unit(s) SubCutaneous Every 62Aaxub49. Insulin Lispro (HumaLOG) Injectable: 12 unit(s) SubCutaneous 3 Times aDay Before Meals13. Insulin Lispro Mild Corrective Scale: unit(s) SubCutaneous 3 Times a DayBefore Meals14. Levothyroxine: 150 microgram(s) Oral Daily15. Mupirocin 2%: 0.5 application(s) Each Nostril 2 Times a Day16. Pantoprazole: 40 mg Oral Daily17. rOPINIRole: 6 mg Oral 18. Sodium Chloride 0.65% Nasal [place]: 2 spray(s) Each Nostril 2 Times aDay PRN Medications -- 1. Dextrose 50% in Water Injectable: 25 gram(s) IntraVenous Push Every 99Ywqsdqg1. Glucagon Injectable: 1 mg IntraMuscular Every 15 Minutes3. Polyethylene Glycol: 17 gram(s) Oral Daily Currently Suspended Medications -- 1. Chlorhexidine Gluconate 4% Topical: 1 application(s) Topical Once Recent Lab Results: Results: I have reviewed these laboratory results: Glucose_POCT Trending View Asktgv81-Cep-7667 13:15:00 29-Mar-2018 07:09:00 28-Mar-2018 19:50:00 28-Mar-2018 16:38:00Glucose-JWHI458 H 186 H 271 H 363 H Heparin assay, UFH 28-Mar-2018 21:31:00 ResultValueHeparin assay, UFH 0.4 Complete Blood Count 28-Mar-2018 21:29:00 ResultValueWhite Blood Cell Count 9.1Nucleated Erythrocyte Count 0.0Red Blood Cell Count 4.37 LHGB 13.6HCT 40.1 LMCV 92MCHC 33.9PLT 232RDW-CV 12.7 Renal Function Panel 28-Mar-2018 21:29:00 ResultValueGlucose, Serum 220 HNA 139K 4.5CL 103Bicarbonate, Serum 27Anion Gap, Serum 14BUN 23CREAT 1.44 HGFR-Non 49 AGFR- 59 ACalcium, Serum 9.5Phosphorus, Serum 4.0ALB 4.0 Radiology Results: Results: Conclusion:CONCLUSIONS:Right Upper PVR: Baseline indices less than 0.80 and waveforms appear abnormal.Clinical correlation is advised. Incomplete palmar arch with good collaterals.Left Upper PVR: Baseline indices > 0.80 and waveforms appear normal. Incompletepalmar arch with good collaterals. [facility] PVR (Arterial Physiologic) BROOKS [Mar 25 2018 10:45PM] Conclusion:CONCLUSIONS:Right Carotid: Findings are consistent with less than 50% stenosis of the rightICA. Right external carotid artery appears patent with no evidence of stenosis.The right vertebral artery is patent with antegrade flow. No evidence ofhemodynamically significant stenosis in the right subclavian.Left Carotid: Findings are consistent with less than 50% stenosis of the leftICA. Left external carotid artery appears patent with no evidence of stenosis.The left vertebral artery is patent with antegrade flow.No evidence of hemodynamically significant stenosis in the left subclavian. [facility] Carotid Artery Duplex Ultrasound [Mar 25 2018 9:52PM] Conclusion:CONCLUSIONS:Left Lower Vein Mapping: The left great saphenous vein appears widely patentwith no evidence of thrombosis or fibrosis.Right Lower Vein Mapping: The right great saphenous vein appears widely patentwith no evidence of thrombosis or fibrosis. [facility] Pre-op Vessel Vein Mapping [Mar 25 2018 7:19PM] Conclusion:CONCLUSIONS:Right Lower PVR: No evidence of arterial occlusive disease in the right lowerextremity at rest. Biphasic flow is noted in the right posterior tibial artery.Triphasic flow is noted in the right common femoral artery and right dorsalispedis artery.Left Lower PVR: No evidence of arterial occlusive disease in the left lowerextremity at rest. 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 [facility] LAB PVR (Arterial Physiologic) BROOKS [Mar 25 2018 7:15PM] Assessment and Plan:Assessment:67 yo M with HTN, DLD, T2DM, Addisson's, GERD, prostate ca s/p prostatectomy [id number], hypothyroidism, psoriasis, and most recently diagnosed with a PE andmultivessel CAD transferred to cardiology at [facility] from [facility] 03/18 for CABG eval. Multiple PEs- addison. Segmental and subsegmental PE on CT- Repeat TTE --> No Right dilation or strain- 2V CXR --> No radiographic evidence of acute cardiopulmonary process.- Appreciate Pulmonary assistance- per pulm NO need for repeat CT chest prior to OR- c/w Heparin gtt- 03/23 IVC Filter placement- Delay CABG for 1 week Tentative plan with Dr. Gaston Monica03/31- plan for 3-6 months anticoagulation (1st episode unprovoked PE)- Hypercoagulable work up pending- PSA <10 Multivessel CAD- 03/19 TTE EF 60-65%, impaired relaxation- EKG without acute ST T wave changes- cont Atorva 40 mg- Cardiac Cath uploaded: 03/16 at [facility] LM: 10-20%, LAD prox: 30%, LAD mid:95%, Diag 3rd: 99%, RCA: 85 %, PLV: 50%, Circ: 95%- Plan for CABG with Dr. 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 Reduce fludrocortisone to 0.05 mg MWFSun- 03/20 Reduce hydrocortisone to 10mg/5mg/2.5mg- 03/23 While NPO: Hydrocortisone 30mg/10mg/5mg- 03/24 Back to Hydrocortisone 10mg/5mg/2.5mg- ON DAY OF SURGERY: FRIDAY- Hydrocortisone 30mg PO 0500- Check Cortisol level at 0700- Start Hydrocortisone 25mg IV q6h starting at 0800- Call Endocrine on the day of surgery to keep them closely involved GERD- Continue home PPI HTN- Holding LAUREN in periop period- 03/20 Increase Carvedilol to 12.5mg BID- SBP 130s-150s over past 24 hours DLD- Atorva 40mg- lipids 155/44/82/141 HypothyroidismTSH 2.51- Continue home levothyroxine TIFFANI- MICHELLE- Adm Creatinine 1.42- Today 1.44 [1.48, 1.46, 1.40, 1.52, 1.24, 1.53, 1.66, 1.38, 1.36] DVT ppx: heparin gttCode status: Full Dispo:pending CABG Friday Seen and discussed with Dr. Arteaga Signature/Cosignature/Attestat ion:Attending Only - Shared Visit with Advanced Practice ProviderThis is a sharedvisit. I have reviewed the Advanced Practice Providers encounter note,approve the Advanced Practice Providers documentation, and provide thefollowing additional information from my personal encounter.Comments/ Additional FindingsAwait CABG.Continue heparin gtt for PE. Electronic Signatures:Vito Patino (LOAN SERVICES PROFESSIONAL-REPLANTER) (Signed 29-Mar-2018 15:36)Authored: Service, Subjective Data, Objective Data, Assessment and Plan,Signature/Cosignature/Att estationLeonel Arteaga) (Signed 29-Mar-2018 17:23)Authored: Signature/Cosignature/Attestat ionCo-Signer: Service, Subjective Data, Objective Data, Assessment and Plan,Signature/Cosignature/Att estation Last Updated: 29-Mar-2018 17:23 by Leonel Arteaga) Normal [facility] Daily Progress Note-Endocrin cherie 03-29-2018 Protein mass conc Consult Type: subseq uent visit/care Service: Endocrinology Subjective Data:DON ELKINS is a 67 year old Male who is Hospital Day # 12. OR postponed till Friday. Objective Data: Objective Information:T [id number]/8596% Date/Time03/29 7: 7: 7: 7: 7:35Range(36C - 36.4C ) (67 - 92 ) (18 - 20 ) (131 - 161 )/ (70 - 93 ) (92% -96% ) Pain with Activity reported at 03/29 8:00: 0Pain at Rest reported at 03/29 8:00: 0 Physical Exam: Constitutional: Well developed, awake/alert/oriented x3, no distress, alert andcooperativeGastrointestinal : Nondistended, soft, non-tender, no rebound tenderness orguarding, no masses palpable, no organomegaly, +BS, no bruitsSkin: Warm and dry, no lesions, no rashes Medication: Medications: Continuous Medications -- 1. Sodium Chloride 0.9% .: 250 mL IntraVenous Scheduled Medications -- 1. Aspirin Chewable: 81 mg Oral Daily2. Atorvastatin: 40 mg Oral Daily3. Carvedilol: 12.5 mg Oral 2 Times a Day4. Citalopram: 20 mg Oral Daily5. Docusate 50 mg - Senna 8.6 m tablet(s) Oral 2 Times a Day6. Fludrocortisone: 0.05 mg Oral 7. Heparin (Repeat Bolus) Injectable: 4000 unit(s) IntraVenous Push Every 8Eqwbf3. Hydrocortisone: 10 mg Oral 9. Hydrocortisone: 5 mg Oral 10. Hydrocortisone: 2.5 mg Oral 11. Insulin Glargine (Lantus) Injectable: 30 unit(s) SubCutaneous Every 66Mauhx39. Insulin Lispro (HumaLOG) Injectable: 12 unit(s) SubCutaneous 3 Times aDay Before Meals13. Insulin Lispro Mild Corrective Scale: unit(s) SubCutaneous 3 Times a DayBefore Meals14. Levothyroxine: 150 microgram(s) Oral Daily15. Mupirocin 2%: 0.5 application(s) Each Nostril 2 Times a Day16. Pantoprazole: 40 mg Oral Daily17. rOPINIRole: 6 mg Oral 18. Sodium Chloride 0.65% Nasal Holbrook: 2 spray(s) Each Nostril 2 Times aDay PRN Medications -- 1. Dextrose 50% in Water Injectable: 25 gram(s) IntraVenous Push Every 67Nduxdta0. Glucagon Injectable: 1 mg IntraMuscular Every 15 Minutes3. Polyethylene Glycol: 17 gram(s) Oral Daily Currently Suspended Medications -- 1. Chlorhexidine Gluconate 4% Topical: 1 application(s) Topical Once Recent Lab Results: Results: I have reviewed these laboratory results: Glucose_POCT Trending View [id number] 07:09:00 28-Mar-2018 19:50:00 28-Mar-2018 16:38:00 28-Mar-2018 12:35:00 28-Mar-2018 07:38:00 27-Mar-2018 22:33:00Glucose-[id number] H 271 H 363 H 231 H 171 H 268 H Renal Function Panel 28-Mar-2018 21:29:00 ResultValueGlucose, Serum 220 HNA 139K 4.5CL 103Bicarbonate, Serum 27Anion Gap, Serum 14BUN 23CREAT 1.44 HGFR-Non 49 AGFR- 59 ACalcium, Serum 9.5Phosphorus, Serum 4.0ALB 4.0 Assessment and Plan:Assessment: Mr. Elkins is a 67 yo WM with no known history of CAD, who has a past medicalhistory of HTN, HLD, T2DM, [facility]'s disease, hypothyroidism, COPD, AKASH onCPAP, prostate ca s/p prostatectomy in 2011, and psoriasis [facility] on 03/[facility] forCABG youngal.Endocrine consulted fr evaluation of [facility] disease and treatment periop Patient was on supra-therapeutic dose of HCT 20-0-20 , fludrocortisone 0.1 ,mgdailyPatient has uncontrolled HTN and uncontrolled BSMost likely tomorrow (03/23) IVC filter placement Recommendations:1. [facility]'s Disease-- Fludrocortisone 0.05 mg 4 times weekly ( and friday)-- Continue Hydrocortisone to 10-5-2.5 mg at 0gw-34hi-9es DAILY as of tomorrow -On the day of the surgery (CABG) please give Hydrocortisone 30 mg by mouthonce at 5 am , check the cortisol level at 7 am , then continue Hydrocortisoneas 25 mg IV q6hrs thereafter as of 8 am. Please keep endo team informed aboutthe date of the surgery please. 2. T2DM-- continue lantus 30 units once daily-- Increase Lispro to 12 units TIDAC-On the day before the surgery : gve only 20 units of Glargine and discontinuelispro after dinner (giving the last dose before dinner)-- Continue ISS 2 units for every 50 above 150-- POCT AC and qHs-- Hypoglycemia protocol--Diabetic diet--will follow Please page with questions [phone] Patient seen and examined, plan discussed with Dr See Pimentel Signature/Cosignature/Attestat ion:Attending AttestationI saw and evaluated the patient. I personally obtainedthe judge and critical portions of the history and physical exam or wasphysically present for judge and critical portions performed by theresident/fellow. I reviewed the resident/fellows documentation and discussedthe patient with the resident/fellow. I agree with the resident/fellowsmedical decision making as documented in the residents note.I personally evaluated the patient (as noted in the above attestation) [id number] Electronic Signatures:Marisol Monet) (Signed 30-Mar-2018 14:34)Authored: Signature/Cosignature/Attestat ionCo-Signer: Service, Subjective Data, Objective Data, Assessment and Plan,Signature/Cosignature/Att estationHasmukh Stephenson (Resident)) (Signed 29-Mar-2018 11:39)Authored: Service, Subjective Data, Objective Data, Assessment and Plan,Signature/Cosignature/Att estation Last Updated: 30-Mar-2018 14:34 by Marisol Monet) Normal [facility] GLUCOSE-POCTon 03-29-2018 Glucose mass conc 244 mg/dL High 74 - 99 [facility] Comment on above: Performed By: #### G BECKY ####[id number] [place] [address] Glucose mass conc 258 mg/dL High 74 - 99 [facility] Comment on above: Performed By: #### G BECKY ####[id number] [place] [address] Glucose mass conc 217 mg/dL High 74 - 99 [facility] Comment on above: Performed By: #### G BECKY ####[id number] [place] [address] Glucose mass conc 186 mg/dL High 74 - 99 [facility] Comment on above: Performed By: #### G BECKY ####[id number] [place] [address] HEPARIN ASSAY,UFHon --20 18 HEPARIN ASSAY,UFH 0.4 IU/mL Normal [facility] Comment on above: Result Comment: The therapeutic reference range for UFH may be either 0.3-0.6 IU/mL or 0.3-0.7 IU/mL based on the clinical setting for anticoagulant therapy and the associated nomogram used. For heparin dosing guidelines based on clinical scenario and Heparin Assay results, please refer to local Pharmacy and [facility] Guidelines for Anticoagulation therapy available on the [facility] intranet at:[email or web address] Performed By: #### H AUF ####[id number] [place] [address] HEPARIN ASSAY,UFH 0.4 IU/mL Normal [facility] Comment on above: Result Comment: The therapeutic reference range for UFH may be either 0.3-0.6 IU/mL or 0.3-0.7 IU/mL based on the clinical setting for anticoagulant therapy and the associated nomogram used. For heparin dosing guidelines based on clinical scenario and Heparin Assay results, please refer to local Pharmacy and [facility] Guidelines for Anticoagulation therapy available on the [facility] intranet at:[email or web address] Performed By: #### H AUF ####[id number] [place] [address] RENAL FUNCTION PANELon 03-29 Albumin mass conc 3.9 g/dL Normal 3.4 - 5.0 [facility] Comment on above: Performed By: #### R ENAL ####[id number] [place] [address] Anion gap 3 molar conc 19 mmol/L Normal 10 - 20 [facility] Comment on above: Performed By: #### R ENAL ####[id number] [place] [address] Calcium mass conc 9.3 mg/dL Normal 8.6 - 10.6 [facility] Comment on above: Performed By: #### R ENAL ####[id number] [place] [address] Chloride molar conc 99 mmol/L Normal 98 - 107 [facility] Comment on above: Performed By: #### R ENAL ####[id number] [place] [address] Creatinine mass conc 1.32 mg/dL High 0.50 - 1.30 [facility] Comment on above: Performed By: #### R ENAL ####[id number] [place] [address] GFR- AM. 65 mL/min/1.73m2 Normal >60 [facility] Comment on above: Result Comment: CALC ULATIONS OF ESTIMATED GFR ARE PERFORMED USING THE MDRD STUDY EQUATION FOR THE IDMS-TRACEABLE CREATININE METHODS. CLIN CHEM 2007;53:766-72 Performed By: #### R ENAL ####[id number] [place] [address] GFR-NON AM. 54 mL/min/1.73m2 Abnormal >60 [facility] Comment on above: Performed By: #### R ENAL ####[id number] [place] [address] Glucose mass conc 237 mg/dL High 74 - 99 [facility] Comment on above: Performed By: #### R ENAL ####[id number] [place] [address] HCO3 molar conc (Bld) 19 mmol/L Low 21 - 32 [facility] Comment on above: Performed By: #### R ENAL ####[id number] [place] [address] Phosphate mass conc 4.2 mg/dL Normal 2.5 - 4.9 [facility] Comment on above: Result Comment: The performance characteristics of phosphorus testing in heparinized plasma have been validated by the individual laboratory site where testing is performed. Testing on heparinized plasma is not approved by the FDA; however, such approval is not necessary. Performed By: #### R ENAL ####[id number] [place] [address] Potassium molar conc 4.6 mmol/L Normal 3.5 - 5.3 [facility] Comment on above: Performed By: #### R ENAL ####[id number] [place] [address] Sodium molar conc 132 mmol/L Low 136 - 145 [facility] Comment on above: Performed By: #### R ENAL ####[id number] [place] [address] Urea nitrogen mass conc 24 mg/dL High 6 - 23 [facility] Comment on above: Performed By: #### R ENAL ####[id number] [place] [address] Albumin mass conc 4.0 g/dL Normal 3.4 - 5.0 [facility] Comment on above: Performed By: #### R ENAL ####[id number] [place] [address] Anion gap 3 molar conc 14 mmol/L Normal 10 - 20 [facility] Comment on above: Performed By: #### R ENAL ####[id number] [place] [address] Calcium mass conc 9.5 mg/dL Normal 8.6 - 10.6 [facility] Comment on above: Performed By: #### R ENAL ####[id number] [place] [address] Chloride molar conc 103 mmol/L Normal 98 - 107 [facility] Comment on above: Performed By: #### R ENAL ####[id number] [place] [address] Creatinine mass conc 1.44 mg/dL High 0.50 - 1.30 [facility] Comment on above: Performed By: #### R ENAL ####[id number] [place] [address] GFR- AM. 59 mL/min/1.73m2 Abnormal >60 [facility] Comment on above: Result Comment: CALC ULATIONS OF ESTIMATED GFR ARE PERFORMED USING THE MDRD STUDY EQUATION FOR THE IDMS-TRACEABLE CREATININE METHODS. CLIN CHEM 2007;53:766-72 Performed By: #### R ENAL ####[id number] [place] [address] GFR-NON AM. 49 mL/min/1.73m2 Abnormal >60 [facility] Comment on above: Performed By: #### R ENAL ####[id number] [place] [address] Glucose mass conc 220 mg/dL High 74 - 99 [facility] Comment on above: Performed By: #### R ENAL ####[id number] [place] [address] HCO3 molar conc (Bld) 27 mmol/L Normal 21 - 32 [facility] Comment on above: Performed By: #### R ENAL ####[id number] [place] [address] Phosphate mass conc 4.0 mg/dL Normal 2.5 - 4.9 [facility] Comment on above: Result Comment: The performance characteristics of phosphorus testing in heparinized plasma have been validated by the individual laboratory site where testing is performed. Testing on heparinized plasma is not approved by the FDA; however, such approval is not necessary. Performed By: #### R ENAL ####[id number] [place] [address] Potassium molar conc 4.5 mmol/L Normal 3.5 - 5.3 [facility] Comment on above: Performed By: #### R ENAL ####[id number] [place] [address] Sodium molar conc 139 mmol/L Normal 136 - 145 [facility] Comment on above: Performed By: #### R ENAL ####[id number] [place] [address] Urea nitrogen mass conc 23 mg/dL Normal 6 - 23 [facility] Comment on above: Performed By: #### R ENAL ####[id number] [place] [address] CBCon 03-28-2018 Erythrocyte distribution width Auto Ratio (RBC) 12.8 % Normal 11.5 - 14.5 [facility] Comment on above: Performed By: #### C BC ####[id number] [place] [address] Hematocrit Auto Volume Fraction (Bld) 41.4 % Normal 41.0 - 52.0 [facility] Comment on above: Performed By: #### C BC ####[id number] [place] [address] Hemoglobin mass conc (Bld) 13.9 g/dL Normal 13.5 - 17.5 [facility] Comment on above: Performed By: #### C BC ####[id number] [place] [address] MCHC Auto mass conc (RBC) 33.6 g/dL Normal 32.0 - 36.0 [facility] Comment on above: Performed By: #### C BC ####[id number] [place] [address] MCV Auto Entitic volume (RBC) 93 fL Normal 80 - 100 [facility] Comment on above: Performed By: #### C BC ####[id number] [place] [address] Nucleated RBC/100 WBC Ratio (Bld) 0.0 /100 WBC Normal 0.0-0.0 [facility] Comment on above: Performed By: #### C BC ####[id number] [place] [address] Platelets Auto #/vol (Bld) 230 10*3/uL Normal 150 - 450 [facility] Comment on above: Performed By: #### C BC ####[id number] [place] [address] RBC Auto #/vol (Bld) 4.46 x10E12/L Low 4.50 - 5.90 [facility] Comment on above: Performed By: #### C BC ####[id number] [place] [address] WBC Auto #/vol (Bld) 8.2 10*3/uL Normal 4.4 - 11.3 [facility] Comment on above: Performed By: #### C BC ####[id number] [place] [address] Daily Progress Note-Cardiolo kathy 03-28-2018 Protein mass conc Service: Cardiology Subjective Data:DON ELKINS is a 67 year old Male who is Hospital Day # 11. Additional Information: Resting in bed, has been ambulating in halls, hypercoagulable work up pending,BS better controlled - plan for OR Saturday 03/31- c/w Heparin gtt Objective Data: Objective Information:T QIKHDhU8Pehas10.68405714/8196% Date/Time03/28 8: 8: 8: 8: 8:00Range(35.9C - 36.7C ) (71 - 85 ) (17 - 20 ) (125 - 165 )/ (72 - 97 ) (94%- 96% ) Pain at Rest reported at 03/28 0:05: 0 Zkosxgf48/10 3:52: Weight in kg (Weight (kg)) 107. 3:52: Weight in lbs ((lbs)) 237.2 Physical Exam: Constitutional: Resting in bed, NADHead/Neck: No JVDRespiratory/Thorax: CTABCardiovascular: RRR, S1 M5Bkfzrfbrehncajyx: soft, NT/NDExtremities: No LE edemaNeurological: alert and oriented h6Htmjcljusccwh: Appropriate mood and behaviorSkin: psoriasis plaque over elbows and knees; otherwise warm and dry Medication: Medications: Continuous Medications -- 1. Sodium Chloride 0.9% .: 250 mL IntraVenous Scheduled Medications -- 1. Aspirin Chewable: 81 mg Oral Daily2. Atorvastatin: 40 mg Oral Daily3. Carvedilol: 12.5 mg Oral 2 Times a Day4. Citalopram: 20 mg Oral Daily5. Docusate 50 mg - Senna 8.6 m tablet(s) Oral 2 Times a Day6. Fludrocortisone: 0.05 mg Oral 7. Heparin (Repeat Bolus) Injectable: 4000 unit(s) IntraVenous Push Every 0Kpsvb5. Hydrocortisone: 10 mg Oral 9. Hydrocortisone: 5 mg Oral 10. Hydrocortisone: 2.5 mg Oral 11. Insulin Glargine (Lantus) Injectable: 30 unit(s) SubCutaneous Every 94Txwoc89. Insulin Lispro (HumaLOG) Injectable: 10 unit(s) SubCutaneous 3 Times aDay Before Meals13. Insulin Lispro Mild Corrective Scale: unit(s) SubCutaneous 3 Times a DayBefore Meals14. Levothyroxine: 150 microgram(s) Oral Daily15. Mupirocin 2%: 0.5 application(s) Each Nostril 2 Times a Day16. Pantoprazole: 40 mg Oral Daily17. rOPINIRole: 6 mg Oral 18. Sodium Chloride 0.65% Nasal Holbrook: 2 spray(s) Each Nostril 2 Times aDay PRN Medications -- 1. Dextrose 50% in Water Injectable: 25 gram(s) IntraVenous Push Every 24Kecgwyk7. Glucagon Injectable: 1 mg IntraMuscular Every 15 Minutes3. Polyethylene Glycol: 17 gram(s) Oral Daily Currently Suspended Medications -- 1. Chlorhexidine Gluconate 4% Topical: 1 application(s) Topical Once Recent Lab Results: Results: I have reviewed these laboratory results: Glucose_POCT Trending View [id number] 07:38:00 27-Mar-2018 22:33:00Glucose-SLXZ792 H 268 H Heparin assay, UFH 27-Mar-2018 19:19:00 ResultValueHeparin assay, UFH 0.4 Complete Blood Count 27-Mar-2018 19:18:00 ResultValueWhite Blood Cell Count 8.2Nucleated Erythrocyte Count 0.0Red Blood Cell Count 4.46 LHGB 13.9HCT 41.4MCV 93MCHC 33.6PLT 230RDW-CV 12.8 Renal Function Panel 27-Mar-2018 19:18:00 ResultValueGlucose, Serum 202 HNA 135 LK 4.2CL 98Bicarbonate, Serum 23Anion Gap, Serum 18BUN 22CREAT 1.48 HGFR-Non 47 AGFR- 57 ACalcium, Serum 9.3Phosphorus, Serum 4.0ALB 3.9 Radiology Results: Results: Conclusion:CONCLUSIONS:Right Upper PVR: Baseline indices less than 0.80 and waveforms appear abnormal.Clinical correlation is advised. Incomplete palmar arch with good collaterals.Left Upper PVR: Baseline indices > 0.80 and waveforms appear normal. Incompletepalmar arch with good collaterals. [facility] LAB PVR (Arterial Physiologic) BROOKS [Mar 25 2018 10:45PM] Conclusion:CONCLUSIONS:Right Carotid: Findings are consistent with less than 50% stenosis of the rightICA. Right external carotid artery appears patent with no evidence of stenosis.The right vertebral artery is patent with antegrade flow. No evidence ofhemodynamically significant stenosis in the right subclavian.Left Carotid: Findings are consistent with less than 50% stenosis of the leftICA. Left external carotid artery appears patent with no evidence of stenosis.The left vertebral artery is patent with antegrade flow.No evidence of hemodynamically significant stenosis in the left subclavian. [facility] LAB Carotid Artery Duplex Ultrasound [Mar 25 2018 9:52PM] Conclusion:CONCLUSIONS:Left Lower Vein Mapping: The left great saphenous vein appears widely patentwith no evidence of thrombosis or fibrosis.Right Lower Vein Mapping: The right great saphenous vein appears widely patentwith no evidence of thrombosis or fibrosis. [facility] LAB Pre-op Vessel Vein Mapping [Mar 25 2018 7:19PM] Conclusion:CONCLUSIONS:Right Lower PVR: No evidence of arterial occlusive disease in the right lowerextremity at rest. Biphasic flow is noted in the right posterior tibial artery.Triphasic flow is noted in the right common femoral artery and right dorsalispedis artery.Left Lower PVR: No evidence of arterial occlusive disease in the left lowerextremity at rest. 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 [facility]ASC LAB PVR (Arterial Physiologic) BROOKS [Mar 25 2018 7:15PM] Assessment and Plan:Assessment:67 yo M with HTN, DLD, T2DM, Addisson's, GERD, prostate ca s/p prostatectomy [id number], hypothyroidism, psoriasis, and most recently diagnosed with a PE andmultivessel CAD transferred to cardiology at [facility] from [facility] 03/18 for CABG eval. Multiple PEs- addison. Segmental and subsegmental PE on CT- Repeat TTE --> No Right dilation or strain- 2V CXR --> No radiographic evidence of acute cardiopulmonary process.- Appreciate Pulmonary assistance- per pulm NO need for repeat CT chest prior to OR- c/w Heparin gtt- 03/23 IVC Filter placement- Delay CABG for 1 week Tentative plan with Dr. Gaston Monica03/31- plan for 3-6 months anticoagulation (1st episode unprovoked PE)- Hypercoagulable work up pending- PSA <10 Multivessel CAD- 03/19 TTE EF 60-65%, impaired relaxation- EKG without acute ST T wave changes- cont Atorva 40 mg- Cardiac Cath uploaded: 03/16 at [facility] LM: 10-20%, LAD prox: 30%, LAD mid:95%, Diag 3rd: 99%, RCA: 85 %, PLV: 50%, Circ: 95%- Plan for CABG with Dr. Gaston on 03/31 s/p recent root canal- 03/19 orthopantogram: suspected periapical abscess of R maxillary premolar- dental consult -> no cause of possible infection, no extraction prior to OR T2DM- Holding home Metformin- SSI and hypoglycemia protocol- A1C 7.9%- BS 152, 229, 287, 268, 171 over past 24 hours- 03/22 Lantus 20 units x1- 03/24 Increase Lantus to 25 units and add Lispro 6 units before meals- 03/25 Lantus 30 units and Lispro 8 units TID- 03/27 increase lispro to 10 units TID AC [facility]'s disease- 03/22 Reduce fludrocortisone to 0.05 mg MWFSun- 03/20 Reduce hydrocortisone to 10mg/5mg/2.5mg- 03/23 While NPO: Hydrocortisone 30mg/10mg/5mg- 03/24 Back to Hydrocortisone 10mg/5mg/2.5mg- ON DAY OF SURGERY: FRIDAY- Hydrocortisone 30mg PO 0500- Check Cortisol level at 0700- Start Hydrocortisone 25mg IV q6h starting at 0800- Call Endocrine on the day of surgery to keep them closely involved GERD- Continue home PPI HTN- Holding LAUREN in periop period- 03/20 Increase Carvedilol to 12.5mg BID- SBP 120s-160s over past 24 hours DLD- Atorva 40mg- lipids 155/44/82/141 HypothyroidismTSH 2.51- Continue home levothyroxine TIFFANI- MICHELLE- Adm Creatinine 1.42- Today 1.48 [1.46, 1.40, 1.52, 1.24, 1.53, 1.66, 1.38, 1.36] DVT ppx: heparin gttCode status: Full Dispo:pending CABG Friday Seen and discussed with Dr. Arteaga Signature/Cosignature/Attestat ion:Attending Only - Shared Visit with Advanced Practice ProviderThis is a sharedvisit. I have reviewed the Advanced Practice Providers encounter note,approve the Advanced Practice Providers documentation, and provide thefollowing additional information from my personal encounter.Comments/ Additional FindingsContinue anticoagulation with heparin gtt.Await CABG. Electronic Signatures:Vito Patino (LOAN SERVICES PROFESSIONAL-REPLANTER) (Signed 28-Mar-2018 10:27)Authored: Service, Subjective Data, Objective Data, Assessment and Plan,Signature/Cosignature/Att Leonel Chilel) (Signed 28-Mar-2018 20:06)Authored: Signature/Cosignature/Attestat ionCo-Signer: Service, Subjective Data, Objective Data, Assessment and Plan,Signature/Cosignature/Att estation Last Updated: 28-Mar-2018 20:06 by Leonel Arteaga) Normal [facility] GLUCOSE-POCTon 03-28-2018 Glucose mass conc 271 mg/dL High 74 - 99 [facility] Comment on above: Performed By: #### G BECKY ####[id number] [place] [address] Glucose mass conc 363 mg/dL High 74 - 99 [facility] Comment on above: Performed By: #### G BECKY ####[id number] [place] [address] Glucose mass conc 231 mg/dL High 74 - 99 [facility] Comment on above: Performed By: #### G BECKY ####[id number] [place] [address] Glucose mass conc 171 mg/dL High 74 - 99 [facility] Comment on above: Performed By: #### G BECKY ####[id number] [place] [address] Glucose mass conc 268 mg/dL High 74 - 99 [facility] Comment on above: Performed By: #### G BECKY ####[id number] [place] [address] RENAL FUNCTION PANELon 03-28 Albumin mass conc 3.9 g/dL Normal 3.4 - 5.0 [facility] Comment on above: Performed By: #### R ENAL ####[id number] [place] [address] Anion gap 3 molar conc 18 mmol/L Normal 10 - 20 [facility] Comment on above: Performed By: #### R ENAL ####[id number] [place] [address] Calcium mass conc 9.3 mg/dL Normal 8.6 - 10.6 [facility] Comment on above: Performed By: #### R ENAL ####[id number] [place] [address] Chloride molar conc 98 mmol/L Normal 98 - 107 [facility] Comment on above: Performed By: #### R ENAL ####[id number] [place] [address] Creatinine mass conc 1.48 mg/dL High 0.50 - 1.30 [facility] Comment on above: Performed By: #### R ENAL ####[id number] [place] [address] GFR- AM. 57 mL/min/1.73m2 Abnormal >60 [facility] Comment on above: Result Comment: CALC ULATIONS OF ESTIMATED GFR ARE PERFORMED USING THE MDRD STUDY EQUATION FOR THE IDMS-TRACEABLE CREATININE METHODS. CLIN CHEM 2007;53:766-72 Performed By: #### R ENAL ####[id number] [place] [address] GFR-NON AM. 47 mL/min/1.73m2 Abnormal >60 [facility] Comment on above: Performed By: #### R ENAL ####[id number] [place] [address] Glucose mass conc 202 mg/dL High 74 - 99 [facility] Comment on above: Performed By: #### R ENAL ####[id number] [place] [address] HCO3 molar conc (Bld) 23 mmol/L Normal 21 - 32 [facility] Comment on above: Performed By: #### R ENAL ####[id number] [place] [address] Phosphate mass conc 4.0 mg/dL Normal 2.5 - 4.9 [facility] Comment on above: Result Comment: The performance characteristics of phosphorus testing in heparinized plasma have been validated by the individual laboratory site where testing is performed. Testing on heparinized plasma is not approved by the FDA; however, such approval is not necessary. Performed By: #### R ENAL ####[id number] [place] [address] Potassium molar conc 4.2 mmol/L Normal 3.5 - 5.3 [facility] Comment on above: Performed By: #### R ENAL ####[id number] [place] [address] Sodium molar conc 135 mmol/L Low 136 - 145 [facility] Comment on above: Performed By: #### R ENAL ####[id number] [place] [address] Urea nitrogen mass conc 22 mg/dL Normal 6 - 23 [facility] Comment on above: Performed By: #### R ENAL ####[id number] [id number] Clinical Event Note-Revaluat ion of PEon 03-27-2018 Clinical Event Note-Revaluation of PE Event:Topic: Revaluation of PEDetails:Reviewed patient's case again. No benefit seen to repeating CT/PE, as patienthas been appropriately anticoagulated, has IVC filter in place, and has notedpulmonary embolism recently that would still be expected to be present onrepeat CT scan. As such, not recommending repeating CT scan prior to surgery. Electronic Signatures:Princess Garnica ( (Fellow)) (Signed 27-Mar-2018 07:25)Authored: Event Last Updated: 27-Mar-2018 07:25 by Princess Garnica ( (Fellow)) Normal [facility] Daily Progress Note-Cardiolo kathy 03-27-2018 Protein mass conc Service: Cardiology Subjective Data:DON ELKINS is a 67 year old Male who is Hospital Day # 10. Additional Information:Patient feeling well. Out of bed and ambulating. No CP or SOB. Cont heparingtt. - plan for OR Wednesday 03/28- will draw hypercoagulable labs- increase lispro to 10units TID AC Objective Data: Objective Information: T AYXKExT4Mnqfv97.10059009/8494% Date/Time03/27 8: 8: 8: 8: 8:05Range(35.7C - 36.4C ) (73 - 78 ) (18 - 21 ) (122 - 152 )/ (78 - 84 ) (94%- 97% ) Xhhhyat00/9 4:54: Weight in kg (Weight (kg)) 66969/9 4:54: Weight in lbs ((lbs)) 236 Physical Exam: Constitutional: Resting in bed, NADHead/Neck: No JVDRespiratory/Thorax: CTABCardiovascular: RRR, S1 E0Yexmshwzbjnuwmty: soft, NT/NDExtremities: No LE edemaNeurological: alert and oriented e6Kkfkpklpokexd: Appropriate mood and behaviorSkin: psoriasis plaque over elbows and knees; otherwise warm and dry Medication: Medications: Continuous Medications -- 1. Sodium Chloride 0.9% .: 250 mL IntraVenous Scheduled Medications -- 1. Aspirin Chewable: 81 mg Oral Daily2. Atorvastatin: 40 mg Oral Daily3. Carvedilol: 12.5 mg Oral 2 Times a Day4. Citalopram: 20 mg Oral Daily5. Docusate 50 mg - Senna 8.6 m tablet(s) Oral 2 Times a Day6. Fludrocortisone: 0.05 mg Oral 7. Heparin (Repeat Bolus) Injectable: 4000 unit(s) IntraVenous Push Every 9Sdaoc1. Hydrocortisone: 10 mg Oral 9. Hydrocortisone: 5 mg Oral 10. Hydrocortisone: 2.5 mg Oral 11. Insulin Glargine (Lantus) Injectable: 30 unit(s) SubCutaneous Every 88Bxoml39. Insulin Lispro (HumaLOG) Injectable: 8 unit(s) SubCutaneous 3 Times aDay Before Meals13. Insulin Lispro Mild Corrective Scale: unit(s) SubCutaneous 3 Times a DayBefore Meals14. Levothyroxine: 150 microgram(s) Oral Daily15. Mupirocin 2%: 0.5 application(s) Each Nostril 2 Times a Day16. Pantoprazole: 40 mg Oral Daily17. rOPINIRole: 6 mg Oral 18. Sodium Chloride 0.65% Nasal Holbrook: 2 spray(s) Each Nostril 2 Times aDay PRN Medications -- 1. Dextrose 50% in Water Injectable: 25 gram(s) IntraVenous Push Every 44Ojbjbhv3. Glucagon Injectable: 1 mg IntraMuscular Every 15 Minutes3. Polyethylene Glycol: 17 gram(s) Oral Daily Currently Suspended Medications -- 1. Chlorhexidine Gluconate 4% Topical: 1 application(s) Topical Once Recent Lab Results: Results: I have reviewed these laboratory results: Glucose_POCT Trending View Fjkgol62-Ulw-6969 08:02:00 26-Mar-2018 21:14:00 26-Mar-2018 19:41:00 26-Mar-2018 15:43:00 26-Mar-2018 12:28:00 26-Mar-2018 07:27:00Glucose-ZYJT774 H 302 H 237 H 256 H 285 H 154 H Complete Blood Count Trending View Olzgxf62-Fkg-0325 16:27:00 26-Mar-2018 00:38:00White Blood Cell Count8.0 8.2Nucleated Erythrocyte Count0.0 0.0Red Blood Cell Count4.47 L 4.36 LHGB14.1 13.5HCT41.0 39.6 LMCV92 44KHBH89.4 34.2JPC597 211RDW-CV12.8 12.9 Renal Function Panel Trending View Swfmzj78-Ize-1083 16:27:00 26-Mar-2018 00:38:00Glucose, Urarn912 H 153 IML008 138K4.6 4.1MZ454 102Bicarbonate, Serum25 24Anion Gap, Serum16 78BEM39 84XIZXF2.46 H 1.40 HGFR-Non Zircwklb86 A 50 AGFR- Lzvmccxq09 A 61Calcium, Serum9.4 9.3Phosphorus, Serum4.2 4.8ALB4.0 3.9 Heparin assay, UFH Trending View Cgyknz13-Kty-1315 16:27:00 26-Mar-2018 00:39:00Heparin assay, UFH0.3 0.4 Radiology Results: Results: Conclusion:CONCLUSIONS:Right Upper PVR: Baseline indices less than 0.80 and waveforms appear abnormal.Clinical correlation is advised. Incomplete palmar arch with good collaterals.Left Upper PVR: Baseline indices > 0.80 and waveforms appear normal. Incompletepalmar arch with good collaterals. [facility] LAB PVR (Arterial Physiologic) BROOKS [Mar 25 2018 10:45PM] Conclusion:CONCLUSIONS:Right Carotid: Findings are consistent with less than 50% stenosis of the rightICA. Right external carotid artery appears patent with no evidence of stenosis.The right vertebral artery is patent with antegrade flow. No evidence ofhemodynamically significant stenosis in the right subclavian.Left Carotid: Findings are consistent with less than 50% stenosis of the leftICA. Left external carotid artery appears patent with no evidence of stenosis.The left vertebral artery is patent with antegrade flow.No evidence of hemodynamically significant stenosis in the left subclavian. [facility] Carotid Artery Duplex Ultrasound [Mar 25 2018 9:52PM] Conclusion:CONCLUSIONS:Left Lower Vein Mapping: The left great saphenous vein appears widely patentwith no evidence of thrombosis or fibrosis.Right Lower Vein Mapping: The right great saphenous vein appears widely patentwith no evidence of thrombosis or fibrosis. [facility] Pre-op Vessel Vein Mapping [Mar 25 2018 7:19PM] Conclusion:CONCLUSIONS:Right Lower PVR: No evidence of arterial occlusive disease in the right lowerextremity at rest. Biphasic flow is noted in the right posterior tibial artery.Triphasic flow is noted in the right common femoral artery and right dorsalispedis artery.Left Lower PVR: No evidence of arterial occlusive disease in the left lowerextremity at rest. 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 [facility] LAB PVR (Arterial Physiologic) BROOKS [Mar 25 2018 7:15PM] Assessment and Plan:Assessment:67 yo M with HTN, DLD, T2DM, Addisson's, GERD, prostate ca s/p prostatectomy [id number], hypothyroidism, psoriasis, and most recently diagnosed with a PE andmultivessel CAD transferred to cardiology at [facility] from [facility] 03/18 for CABG eval. Multiple PEs- addison. Segmental and subsegmental PE on CT- Repeat TTE --> No Right dilation or strain- 2V CXR --> No radiographic evidence of acute cardiopulmonary process.- Appreciate Pulmonary assistance- per pulm NO need for repeat CT chest prior to OR- c/w Heparin gtt- 03/23 IVC Filter placement- Delay CABG for 1 week Tentative plan with Dr. Gaston Saturday 03/31- plan for 3-6 months anticoagulation (1st episode unprovoked PE)- c/s hypercoagulable work up as outpatient and ensure age appropriate cancerscreening complete- will order hypercoagulable labs- PSA <10 Multivessel CAD- 03/19 TTE EF 60-65%, impaired relaxation- EKG without acute ST T wave changes- cont Atorva 40 mg- Cardiac Cath uploaded: 03/16 at [facility] LM: 10-20%, LAD prox: 30%, LAD mid:95%, Diag 3rd: 99%, RCA: 85 %, PLV: 50%, Circ: 95%- Plan for CABG with Dr. Gaston on 03/31 s/p recent root canal- 03/19 orthopantogram: suspected periapical abscess of R maxillary premolar- dental consult -> no cause of possible infection, no extraction prior to OR T2DM- Holding home Metformin- SSI and hypoglycemia protocol- A1C 7.9%- BS 154-302 over past 24 hours- 03/22 Lantus 20 units x1- 03/24 Increase Lantus to 25 units and add Lispro 6 units before meals- 03/25 Lantus 30 units and Lispro 8 units TID- 03/27 increase lispro to 10 units TID AC [facility]'s disease- 03/22 Reduce fludrocortisone to 0.05 mg MWFSun- 03/20 Reduce hydrocortisone to 10mg/5mg/2.5mg- 03/23 While NPO: Hydrocortisone 30mg/10mg/5mg- 03/24 Back to Hydrocortisone 10mg/5mg/2.5mg- ON DAY OF SURGERY: FRIDAY- Hydrocortisone 30mg PO 0500- Check Cortisol level at 0700- Start Hydrocortisone 25mg IV q6h starting at 0800- Call Endocrine on the day of surgery to keep them closely involved GERD- Continue home PPI HTN- Holding LAUREN in periop period- 03/20 Increase Carvedilol to 12.5mg BID- SBP 120s-140s over past 24 hours DLD- Atorva 40mg- lipids 155/44/82/141 HypothyroidismTSH 2.51- Continue home levothyroxine TIFFANI- MICHELLE- Adm Creatinine 1.42- Today 1.46 [1.40, 1.52, 1.24, 1.53, 1.66, 1.38, 1.36] DVT ppx: heparin gttCode status: Full Dispo:pending CABG Friday Seen and discussed with Dr. Arteaga Signature/Cosignature/Attestat ion:Attending Only - Shared Visit with Advanced Practice ProviderThis is a sharedvisit. I have reviewed the Advanced Practice Providers encounter note,approve the Advanced Practice Providers documentation, and provide thefollowing additional information from my personal encounter.Comments/ Additional FindingsContinue anticoagulation.Await CABG. Electronic Signatures:Leonel Arteaga) (Signed 28-Mar-2018 20:04)Authored: Signature/Cosignature/Attestat ionCo-Signer: Service, Subjective Data, Objective Data, Assessment and PlanKate Ayala (LOAN SERVICES PROFESSIONAL-REPLANTER) (Signed 27-Mar-2018 16:37)Authored: Service, Subjective Data, Objective Data, Assessment and Plan Last Updated: 28-Mar-2018 20:04 by Leonel Arteaga) [facility] Daily Progress Note-Endocrin ologyon 03-27-2018 Protein mass conc Consult Type: subseq uent visit/care Service: Endocrinology Subjective Data:DON ELKINS is a 67 year old Male who is Hospital Day # 10. Objective Data: Objective Information:T FRTGNvU3Wyxxi71.58189260/7795% Date/Time03/27 15: 15: 15: 15: 15:43Range(35.9C - 36.5C ) (71 - 85 ) (17 - 21 ) (122 - 152 )/ (75 - 84 ) (94%- 97% ) Pain at Rest reported at 03/27 15:00: 0 Medication: Medications: Continuous Medications -- 1. Sodium Chloride 0.9% .: 250 mL IntraVenous Scheduled Medications -- 1. Aspirin Chewable: 81 mg Oral Daily2. Atorvastatin: 40 mg Oral Daily3. Carvedilol: 12.5 mg Oral 2 Times a Day4. Citalopram: 20 mg Oral Daily5. Docusate 50 mg - Senna 8.6 m tablet(s) Oral 2 Times a Day6. Fludrocortisone: 0.05 mg Oral 7. Heparin (Repeat Bolus) Injectable: 4000 unit(s) IntraVenous Push Every 7Vgssh4. Hydrocortisone: 10 mg Oral 9. Hydrocortisone: 5 mg Oral 10. Hydrocortisone: 2.5 mg Oral 11. Insulin Glargine (Lantus) Injectable: 30 unit(s) SubCutaneous Every 56Tiehd71. Insulin Lispro (HumaLOG) Injectable: 10 unit(s) SubCutaneous 3 Times aDay Before Meals13. Insulin Lispro Mild Corrective Scale: unit(s) SubCutaneous 3 Times a DayBefore Meals14. Levothyroxine: 150 microgram(s) Oral Daily15. Mupirocin 2%: 0.5 application(s) Each Nostril 2 Times a Day16. Pantoprazole: 40 mg Oral Daily17. rOPINIRole: 6 mg Oral 18. Sodium Chloride 0.65% Nasal Holbrook: 2 spray(s) Each Nostril 2 Times aDay PRN Medications -- 1. Dextrose 50% in Water Injectable: 25 gram(s) IntraVenous Push Every 67Tkcnfzl6. Glucagon Injectable: 1 mg IntraMuscular Every 15 Minutes3. Polyethylene Glycol: 17 gram(s) Oral Daily Currently Suspended Medications -- 1. Chlorhexidine Gluconate 4% Topical: 1 application(s) Topical Once Recent Lab Results: Results: I have reviewed these laboratory results: Glucose_POCT Trending View Vrtjhe50-Mag-4823 16:33:00 27-Mar-2018 12:54:00 27-Mar-2018 08:02:00 26-Mar-2018 21:14:00 26-Mar-2018 19:41:00 26-Mar-2018 15:43:00 88-Ldg-959549:28:00 26-Mar-2018 07:27:00 25-Mar-2018 21:21:00Glucose-CMBU572 H 229 H 152 H 302 H 237 H 256 H 285H 154 H 181 H Renal Function Panel Trending View Wugbgb41-Ubw-3554 16:27:00 26-Mar-2018 00:38:00Glucose, Ocwyl883 H 153 XJX882 138K4.6 4.4VM005 102Bicarbonate, Serum25 24Anion Gap, Serum16 16MTF69 41MHQWB2.46 H 1.40 HGFR-Non Ezmbnsex34 A 50 AGFR- Fbyikibu35 A 61Calcium, Serum9.4 9.3Phosphorus, Serum4.2 4.8ALB4.0 3.9 Assessment and Plan:Assessment: Mr. Elkins is a 67 yo WM with no known history of CAD, who has a past medicalhistory of HTN, HLD, T2DM, [facility]'s disease, hypothyroidism, COPD, AKASH onCPAP, prostate ca s/p prostatectomy in 2011, and psoriasis who was [facility]to [facility] service at [facility] on 03/18 forNVBG marshall.Endocrine consulted fr evaluation of [facility] disease and treatment periop Patient was on supra-therapeutic dose of HCT 20-0-20 , fludrocortisone 0.1 ,mgdailyPatient has uncontrolled HTN and uncontrolled BSMost likely tomorrow (03/23) IVC filter placement Recommendations:1. [facility]'s Disease-- Fludrocortisone 0.05 mg 4 times weekly ( and friday)-- Continue Hydrocortisone to 10-5-2.5 mg at 6rh-63cs-0rq DAILY as of tomorrow -On the day of the surgery (CABG) please give Hydrocortisone 30 mg by mouthonce at 5 am , check the cortisol level at 7 am , then continue Hydrocortisoneas 25 mg IV q6hrs thereafter as of 8 am. Please keep endo team informed aboutthe date of the surgery please. 2. T2DM-- continue lantus 30 units once daily-- Increase Lispro to 10 units TIDAC-- Continue ISS 2 units for every 50 above 150-- POCT AC and qHs-- Hypoglycemia protocol--Diabetic diet--will follow Please page with questions [phone] Patient seen and examined, plan discussed with Dr Quevedo Signature/Cosignature/Attestat ion:Attending AttestationI saw and evaluated the patient. I personally obtainedthe judge and critical portions of the history and physical exam or wasphysically present for judge and critical portions performed by theresident/fellow. I reviewed the resident/fellows documentation and discussedthe patient with the resident/fellow. I agree with the resident/fellowsmedical decision making as documented in the residents note.I personally evaluated the patient (as noted in the above attestation) [id number] Electronic Signatures:Starr Quevedo) (Signed 31-Mar-2018 10:05)Authored: Signature/Cosignature/Attestat ionCo-Signer: Service, Subjective Data, Objective Data, Assessment and Plan,Signature/Cosignature/Att estationHasmukh Stephenson (Resident)) (Signed 27-Mar-2018 17:17)Authored: Service, Subjective Data, Objective Data, Assessment and Plan,Signature/Cosignature/Att estation Last Updated: 31-Mar-2018 10:05 by Starr Quevedo) Normal [facility] GLUCOSE-POCTon 03-27-2018 Glucose mass conc 287 mg/dL High 74 - 99 [facility] Comment on above: Performed By: #### G BECKY ####[id number] [place] [address] Glucose mass conc 229 mg/dL High 74 - 99 [facility] Comment on above: Performed By: #### G BECKY ####[id number] [place] [address] Glucose mass conc 152 mg/dL High 74 - 99 [facility] Comment on above: Performed By: #### G BECKY ####[id number] [place] [address] HEPARIN ASSAY,UFHon 03-27-20 18 HEPARIN ASSAY,UFH 0.4 IU/mL Normal [facility] Comment on above: Result Comment: The therapeutic reference range for UFH may be either 0.3-0.6 IU/mL or 0.3-0.7 IU/mL based on the clinical setting for anticoagulant therapy and the associated nomogram used. For heparin dosing guidelines based on clinical scenario and Heparin Assay results, please refer to local Pharmacy and the [facility] Guidelines for Anticoagulation therapy available on the [facility] intranet at:[email or web address] Performed By: #### H AUF ####[id number] [place] [address] CBCon 03-26-2018 Erythrocyte distribution width Auto Ratio (RBC) 12.8 % Normal 11.5 - 14.5 [facility] Comment on above: Performed By: #### C BC ####[id number] [place] [address] Hematocrit Auto Volume Fraction (Bld) 41.0 % Normal 41.0 - 52.0 [facility] Comment on above: Performed By: #### C BC ####[id number] [place] [address] Hemoglobin mass conc (Bld) 14.1 g/dL Normal 13.5 - 17.5 [facility] Comment on above: Performed By: #### C BC ####[id number] [place] [address] MCHC Auto mass conc (RBC) 34.4 g/dL Normal 32.0 - 36.0 [facility] Comment on above: Performed By: #### C BC ####[id number] [place] [address] MCV Auto Entitic volume (RBC) 92 fL Normal 80 - 100 [facility] Comment on above: Performed By: #### C BC ####[id number] [place] [address] Nucleated RBC/100 WBC Ratio (Bld) 0.0 /100 WBC Normal 0.0-0.0 [facility] Comment on above: Performed By: #### C BC ####[id number] [place] [address] Platelets Auto #/vol (Bld) 231 10*3/uL Normal 150 - 450 [facility] Comment on above: Performed By: #### C BC ####[id number] [place] [address] RBC Auto #/vol (Bld) 4.47 x10E12/L Low 4.50 - 5.90 [facility] Comment on above: Performed By: #### C BC ####[id number] [place] [address] WBC Auto #/vol (Bld) 8.0 10*3/uL Normal 4.4 - 11.3 [facility] Comment on above: Performed By: #### C BC ####[id number] [place] [address] Erythrocyte distribution width Auto Ratio (RBC) 12.9 % Normal 11.5 - 14.5 [facility] Comment on above: Performed By: #### C BC ####[id number] [place] [address] Hematocrit Auto Volume Fraction (Bld) 39.6 % Low 41.0 - 52.0 [facility] Comment on above: Performed By: #### C BC ####[id number] [place] [address] Hemoglobin mass conc (Bld) 13.5 g/dL Normal 13.5 - 17.5 [facility] Comment on above: Performed By: #### C BC ####[id number] [place] [address] MCHC Auto mass conc (RBC) 34.1 g/dL Normal 32.0 - 36.0 [facility] Comment on above: Performed By: #### C BC ####[id number] [place] [address] MCV Auto Entitic volume (RBC) 91 fL Normal 80 - 100 [facility] Comment on above: Performed By: #### C BC ####[id number] [place] [address] Nucleated RBC/100 WBC Ratio (Bld) 0.0 /100 WBC Normal 0.0-0.0 [facility] Comment on above: Performed By: #### C BC ####[id number] [place] [address] Platelets Auto #/vol (Bld) 211 10*3/uL Normal 150 - 450 [facility] Comment on above: Performed By: #### C BC ####[id number] [place] [address] RBC Auto #/vol (Bld) 4.36 x10E12/L Low 4.50 - 5.90 [facility] Comment on above: Performed By: #### C BC ####[id number] [place] [address] WBC Auto #/vol (Bld) 8.2 10*3/uL Normal 4.4 - 11.3 [facility] Comment on above: Performed By: #### C BC ####[id number] [place] [address] Consulton 03-26-2018 Consult Allergies: No Known Allergies: Assessment:S: Dental consult requestedprior to CAB surgery due to suspected PARL presenton gonzalez. Pt reports no symptomsO: Periodontal disease present. No signs of gross decay detected clinically.Absence of swelling, oral pathology, abscess clinically. Review gonzalez- nopresence of PARL suspected and no cause of possible infection.A:P: No extractions recommended prior to surgery Signature/Cosignature/Attestat ion:Attending AttestationI reviewed the resident/fellows documentation anddiscussed the patient with the resident/fellow. I agree with theresident/fellows medical decision making as documented in the residents note. Electronic Signatures:Amador Joel (DDS) (Signed 06-Apr-2018 17:31)Authored: Signature/Cosignature/Attestat ionCo-Signer: Allergies, Assessment/Recommendations,Sig nature/Cosignature/Attestation Carolyn Gonzalez (DDS) (Signed 26-Mar-2018 17:32)Authored: Allergies, Assessment/Recommendations,Sig nature/Cosignature/Attestation Last Updated: 06-Apr-2018 17:31 by Amador Joel (DDS) Normal [facility] Daily Progress Note-Cardiac Surgeryon 03-26-2018 Protein mass conc Service: Cardiac Iris dane Subjective Data:DON ELKINS is a 67 year old Male who is Hospital Day # 9. Objective Data: Objective Information: T [id number]/8195% Date/Time03/26 11: 11: 11: 11: 11:45Range(35.9C - 36.8C ) (67 - 75 ) (17 - 18 ) (124 - 173 )/ (77 - 84 ) (95%- 97% ) Pain with Activity reported at 03/26 15:37: 0Pain at Rest reported at 03/26 15:37: 0 Rrumdpv45/8 3:38: Weight in kg (Weight (kg)) 107. 3:38: Weight in lbs ((lbs)) 236.3 Medication: Medications: Continuous Medications -- 1. Sodium Chloride 0.9% .: 250 mL IntraVenous Scheduled Medications -- 1. Aspirin Chewable: 81 mg Oral Daily2. Atorvastatin: 40 mg Oral Daily3. Carvedilol: 12.5 mg Oral 2 Times a Day4. Citalopram: 20 mg Oral Daily5. Docusate 50 mg - Senna 8.6 m tablet(s) Oral 2 Times a Day6. Fludrocortisone: 0.05 mg Oral 7. Heparin (Repeat Bolus) Injectable: 4000 unit(s) IntraVenous Push Every 6Iwfxq5. Hydrocortisone: 10 mg Oral 9. Hydrocortisone: 5 mg Oral 10. Hydrocortisone: 2.5 mg Oral 11. Insulin Glargine (Lantus) Injectable: 30 unit(s) SubCutaneous Every 73Vqcml77. Insulin Lispro (HumaLOG) Injectable: 8 unit(s) SubCutaneous 3 Times aDay Before Meals13. Insulin Lispro Mild Corrective Scale: unit(s) SubCutaneous 3 Times a DayBefore Meals14. Levothyroxine: 150 microgram(s) Oral Daily15. Mupirocin 2%: 0.5 application(s) Each Nostril 2 Times a Day16. Pantoprazole: 40 mg Oral Daily17. Polyethylene Glycol: 17 gram(s) Oral Daily18. rOPINIRole: 6 mg Oral 19. Sodium Chloride 0.65% Nasal Holbrook: 2 spray(s) Each Nostril 2 Times aDay PRN Medications -- 1. Dextrose 50% in Water Injectable: 25 gram(s) IntraVenous Push Every 12Vprwowq0. Glucagon Injectable: 1 mg IntraMuscular Every 15 Minutes Currently Suspended Medications -- 1. Chlorhexidine Gluconate 4% Topical: 1 application(s) Topical Once Recent Lab Results: Results: I have reviewed these laboratory results: Glucose_POCT Trending View [id number] 12:28:00 26-Mar-2018 07:27:00Glucose-ZYNM839 H 154 H Heparin assay, UFH 26-Mar-2018 00:39:00 ResultValueHeparin assay, UFH 0.4 Complete Blood Count 26-Mar-2018 00:38:00 ResultValueWhite Blood Cell Count 8.2Nucleated Erythrocyte Count 0.0Red Blood Cell Count 4.36 LHGB 13.5HCT 39.6 LMCV 91MCHC 34.1PLT 211RDW-CV 12.9 Renal Function Panel 26-Mar-2018 00:38:00 ResultValueGlucose, Serum 153 HNA 138K 4.3CL 102Bicarbonate, Serum 24Anion Gap, Serum 16BUN 22CREAT 1.40 HGFR-Non 50 AGFR- 61Calcium, Serum 9.3Phosphorus, Serum 4.8ALB 3.9 Radiology Results: Results: Conclusion:CONCLUSIONS:Right Upper PVR: Baseline indices less than 0.80 and waveforms appear abnormal.Clinical correlation is advised. Incomplete palmar arch with good collaterals.Left Upper PVR: Baseline indices > 0.80 and waveforms appear normal. Incompletepalmar arch with good collaterals. [facility] PVR (Arterial Physiologic) BROOKS [Mar 25 2018 10:45PM] Conclusion:CONCLUSIONS:Right Carotid: Findings are consistent with less than 50% stenosis of the rightICA. Right external carotid artery appears patent with no evidence of stenosis.The right vertebral artery is patent with antegrade flow. No evidence ofhemodynamically significant stenosis in the right subclavian.Left Carotid: Findings are consistent with less than 50% stenosis of the leftICA. Left external carotid artery appears patent with no evidence of stenosis.The left vertebral artery is patent with antegrade flow.No evidence of hemodynamically significant stenosis in the left subclavian. [facility] Carotid Artery Duplex Ultrasound [Mar 25 2018 9:52PM] Conclusion:CONCLUSIONS:Left Lower Vein Mapping: The left great saphenous vein appears widely patentwith no evidence of thrombosis or fibrosis.Right Lower Vein Mapping: The right great saphenous vein appears widely patentwith no evidence of thrombosis or fibrosis. [facility] Pre-op Vessel Vein Mapping [Mar 25 2018 7:19PM] Conclusion:CONCLUSIONS:Right Lower PVR: No evidence of arterial occlusive disease in the right lowerextremity at rest. Biphasic flow is noted in the right posterior tibial artery.Triphasic flow is noted in the right common femoral artery and right dorsalispedis artery.Left Lower PVR: No evidence of arterial occlusive disease in the left lowerextremity at rest. 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 [facility] PVR (Arterial Physiologic) BROOKS [Mar 25 2018 7:15PM] Conclusion:CONCLUSIONS:Right Upper Arterial: The right radial artery is patent with triphasicwaveforms.Left Upper Arterial: The left radial artery is patent with triphasic waveforms. [facility] Arterial Duplex Ultrasound [Mar 24 2018 11:22PM] Conclusion:CONCLUSIONS: 1. Successful IVC filter insertion. Cardiac Catheterization Lab Procedures [Mar 23 2018 2:06PM] Impression: Suspected periapical abscess right maxillary premolar. Xray Orthopantogram [Mar 19 2018 3:30PM] Conclusion:CONCLUSIONS: 1. The left ventricular systolic function is normal with a 60-65% estimatedejection fraction. 2. Spectral Doppler shows an impaired relaxation pattern of left ventriculardiastolic filling.QUANTITATIVE DATA SUMMARY:2D MEASUREMENTS: Normal Ranges:LAs: 3.10 cm (2.7-4.0cm)IVSd: 1.84 cm (0.6-1.1cm)LVPWd: 0.96 cm (0.6-1.1cm)LVIDd: 3.51 cm (3.9-5.9cm)LVIDs: 2.33 cmLV Mass Index: 79.3 g/m2LV % FS 33.6 %LA VOLUME: Normal Ranges:LA Vol A4C: 42.8 ml (22+/-6mL/m2)LA Vol A2C: 36.3 mlLA Vol BP: 44.5 mlLA Vol Index A4C: 19.6ml/m2LA Vol Index A2C: 16.6 ml/m2LA Vol Index BP: 20.4 ml/m2LA Area A4C: 17.4cm2LA Area A2C: 14.2 cm2LA [place] A4C: 6.0 cmLA [place] A2C: 4.7 cmLA Volume Index: 15.2 ml/m2RA VOLUME BY A/L METHOD: Normal Ranges:RA Area A4C: 12.8 oi9S-IIVG MEASUREMENTS: Normal Ranges:Ao Root: 2.90 cm (2.0-3.7cm)LAs: 3.80 cm (2.7-4.0cm)AORTA MEASUREMENTS: Normal Ranges:Ao Sinus, d: 3.45 cm (2.1-3.5cm)Ao STJ, d: 2.85 cm (1.7-3.4cm)Asc Ao, d: 3.40 cm (2.1-3.4cm)LV SYSTOLIC FUNCTIONBY 2D PLANIMETRY (MOD): Normal Ranges:EF-A4C View: 59.9 % (>55%)EF-A2C View: 66.3 %EF-Biplane: 63.4 %LV DIASTOLIC FUNCTION: Normal Ranges:MV Peak E: 0.60 m/s (0.7-1.2 m/s)MV Peak A: 0.71 m/s (0.42-0.7 m/s)E/A Ratio: 0.84 (1.0-2.2)MV e' 0.05 m/s (>8.0)MV lateral e' 0.05 m/sMV medial e' 0.05 m/sMV A Dur: 148.00 msecE/e' Ratio: 11.92 (<8.0)a' 0.14 m/sMV DT: 261 msec (150-240 msec)PulmV Sys Jeremiah: 51.80 cm/sPulmV Pablo Jeremiah: 29.80 cm/sPulmV S/D Jeremiah: 1.70PulmV A Revs Jeremiah: 31.50 cm/sPulmV A Revs Dur: 116.00 msecMITRAL VALVE: NormalRanges:MV DT: 261 msec (150-240msec)AORTIC VALVE: Normal Ranges:AoV Vmax: 1.02 m/s (<1.7m/s)AoV Peak P.2 mmHg (<20mmHg)LVOT Max Jeremiah: 0.87 m/s (<1.1m/s)LVOT VTI: 17.70 cmRIGHT VENTRICLE:RV 1 3.22 cmRV 2 2.33 cmRV 3 7.96 cmTAPSE: 19.1 mmRV s' 0.13 m/sTRICUSPID VALVE/RVSP: Normal Ranges:IVC Diam: 2.03 cmPULMONIC VALVE: Normal Ranges:PV Max Jeremiah: 1.0 m/s (0.6-0.9m/s)PV Max P.2 mmHgPulmonary Veins:PulmV A Revs Dur: 116.00 msecPulmV A Revs Jeremiah: 31.50 cm/sPulmV Pablo Jeremiah: 29.80 cm/sPulmV S/D Jeremiah: 1.70PulmV Sys Jeremiah: 51.80 cm/s Echocardiogram [Mar 19 2018 2:30PM] Impression: 1. No radiographic evidence of acute cardiopulmonary process. Xray Chest 2 View PA + Lateral [Mar 19 2018 2:19PM] Impression: 1. No radiographic evidence of acute cardiopulmonary process. Xray Chest 1 View [Mar 19 2018 9:20AM] Assessment and Plan:Assessment:67 yo WM with no prior history of CAD, who has a past medical history of HTN,HLD, T2DM, [facility]'s disease, hypothyroidism, COPD, AKASH on CPAP, prostate spring/p prostatectomy in 2011, and psoriasis who [facility] for CABG eval. [place] and dys[place]nea. He as found to havebilat PEs, was started on Heparin gtt, and transferred to [facility]. He wasfound to have a troponin leak at 2.25. Cardiology was consulted and the patientwas diagnosed with ACS, NSTEMI. He underwent a TTE and cath. He had normal EF,mild AI, and triple vessel CAD so was transferred to [facility] for CABG eval. Cardiac surgery consulted 03/19 for CABG eval. New Plan is below. Plan:- OR date is Saturday 03/[address] Gaston [address] Dr Yu recommending holding offon CABG if able to allow ~ 1 week on Heparin gtt for the PE; he alsorecommended an IVC filter be placed- scrubs ordered- type and screen ordered, blood on hold- Preop studies done- NPO after midnight 03/31- no ACEi/ARBs during preop period- continue asa, statin, BB unless contraindicated and document reason- Dr Gaston also requests a Heme consult for hypercoagulable w/u (unless Pulmmakes recs for this)- please obtain dental consult Please call cardiac surgery immediately if the patient deteriorates clinically Signature/Cosignature/Attestat ion:Provider/Team Contact Info-Pager Numbercardiac surgery [phone] Electronic Signatures:Alexandra Milligan (PAC) (Signed 26-Mar-2018 16:11)Authored: Service, Subjective Data, Objective Data, Assessment and Plan,Signature/Cosignature/Att estation Last Updated: 26-Mar-2018 16:11 by Alexandra Milligan (PAC) Normal [facility] Daily Progress Note-Cardiolo augustinon 03-26-2018 Protein mass conc Service: Cardiology Subjective Data:DON ELKINS is a 67 year old Male who is Hospital Day # 9. Additional Information:No changes in plan today, awaiting OR Friday. cont heparin gtt. No changes perEndo recs. - no changes Objective Data: Objective Information: T [id number]/8195% Date/Time03/26 11: 11: 11: 11: 11:45Range(35.9C - 36.8C ) (67 - 75 ) (17 - 18 ) (124 - 173 )/ (77 - 84 ) (95%- 97% ) Gfaikcg44 3:38: Weight in kg (Weight (kg)) 107.211/ 3:38: Weight in lbs ((lbs)) 236.3 Physical Exam: Constitutional: Resting in bed, NADHead/Neck: No JVDRespiratory/Thorax: CTABCardiovascular: RRR, S1 T9Yjgwanodtawzrmds: soft, NT/NDExtremities: No LE edemaNeurological: alert and oriented f6Qjhtjrphwmcva: Appropriate mood and behaviorSkin: psoriasis plaque over elbows and knees; otherwise warm and dry Medication: Medications: Continuous Medications -- 1. Sodium Chloride 0.9% .: 250 mL IntraVenous Scheduled Medications -- 1. Aspirin Chewable: 81 mg Oral Daily2. Atorvastatin: 40 mg Oral Daily3. Carvedilol: 12.5 mg Oral 2 Times a Day4. Citalopram: 20 mg Oral Daily5. Docusate 50 mg - Senna 8.6 m tablet(s) Oral 2 Times a Day6. Fludrocortisone: 0.05 mg Oral 7. Heparin (Repeat Bolus) Injectable: 4000 unit(s) IntraVenous Push Every 3Bhsky2. Hydrocortisone: 10 mg Oral 9. Hydrocortisone: 5 mg Oral 10. Hydrocortisone: 2.5 mg Oral 11. Insulin Glargine (Lantus) Injectable: 30 unit(s) SubCutaneous Every 96Apbmb18. Insulin Lispro (HumaLOG) Injectable: 8 unit(s) SubCutaneous 3 Times aDay Before Meals13. Insulin Lispro Mild Corrective Scale: unit(s) SubCutaneous 3 Times a DayBefore Meals14. Levothyroxine: 150 microgram(s) Oral Daily15. Mupirocin 2%: 0.5 application(s) Each Nostril 2 Times a Day16. Pantoprazole: 40 mg Oral Daily17. Polyethylene Glycol: 17 gram(s) Oral Daily18. rOPINIRole: 6 mg Oral 19. Sodium Chloride 0.65% Nasal Holbrook: 2 spray(s) Each Nostril 2 Times aDay PRN Medications -- 1. Dextrose 50% in Water Injectable: 25 gram(s) IntraVenous Push Every 61Wdafgur1. Glucagon Injectable: 1 mg IntraMuscular Every 15 Minutes Currently Suspended Medications -- 1. Chlorhexidine Gluconate 4% Topical: 1 application(s) Topical Once Recent Lab Results: Results: I have reviewed these laboratory results: Glucose_POCT Trending View [id number] 12:28:00 26-Mar-2018 07:27:00 25-Mar-2018 21:21:00 25-Mar-2018 16:15:00 25-Mar-2018 11:19:00 25-Mar-2018 07:47:00Glucose-VXQF351 H 154 H 181 H 306 H 291 H 163 H Heparin assay, UFH Trending View [id number] 00:39:00 25-Mar-2018 07:31:00Heparin assay, UFH0.4 0.4 Complete Blood Count 26-Mar-2018 00:38:00 ResultValueWhite Blood Cell Count 8.2Nucleated Erythrocyte Count 0.0Red Blood Cell Count 4.36 LHGB 13.5HCT 39.6 LMCV 91MCHC 34.1PLT 211RDW-CV 12.9 Renal Function Panel 26-Mar-2018 00:38:00 ResultValueGlucose, Serum 153 HNA 138K 4.3CL 102Bicarbonate, Serum 24Anion Gap, Serum 16BUN 22CREAT 1.40 HGFR-Non 50 AGFR- 61Calcium, Serum 9.3Phosphorus, Serum 4.8ALB 3.9 Radiology Results: Results: Conclusion:CONCLUSIONS:Right Upper PVR: Baseline indices less than 0.80 and waveforms appear abnormal.Clinical correlation is advised. Incomplete palmar arch with good collaterals.Left Upper PVR: Baseline indices > 0.80 and waveforms appear normal. Incompletepalmar arch with good collaterals. [facility] LAB PVR (Arterial Physiologic) BROOKS [Mar 25 2018 10:45PM] Conclusion:CONCLUSIONS:Right Carotid: Findings are consistent with less than 50% stenosis of the rightICA. Right external carotid artery appears patent with no evidence of stenosis.The right vertebral artery is patent with antegrade flow. No evidence ofhemodynamically significant stenosis in the right subclavian.Left Carotid: Findings are consistent with less than 50% stenosis of the leftICA. Left external carotid artery appears patent with no evidence of stenosis.The left vertebral artery is patent with antegrade flow.No evidence of hemodynamically significant stenosis in the left subclavian. [facility] Carotid Artery Duplex Ultrasound [Mar 25 2018 9:52PM] Conclusion:CONCLUSIONS:Left Lower Vein Mapping: The left great saphenous vein appears widely patentwith no evidence of thrombosis or fibrosis.Right Lower Vein Mapping: The right great saphenous vein appears widely patentwith no evidence of thrombosis or fibrosis. [facility] Pre-op Vessel Vein Mapping [Mar 25 2018 7:19PM] Conclusion:CONCLUSIONS:Right Lower PVR: No evidence of arterial occlusive disease in the right lowerextremity at rest. Biphasic flow is noted in the right posterior tibial artery.Triphasic flow is noted in the right common femoral artery and right dorsalispedis artery.Left Lower PVR: No evidence of arterial occlusive disease in the left lowerextremity at rest. 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 [facility] PVR (Arterial Physiologic) BROOKS [Mar 25 2018 7:15PM] Assessment and Plan:Assessment:67 yo M with HTN, DLD, T2DM, Addisson's, GERD, prostate ca s/p prostatectomy [id number], hypothyroidism, psoriasis, and most recently diagnosed with a PE andmultivessel CAD transferred to cardiology at [facility] from [facility] 03/18 for CABG eval. Multiple PEs- addison. Segmental and subsegmental PE on CT- Repeat TTE --> No Right dilation or strain- 2V CXR --> No radiographic evidence of acute cardiopulmonary process.- Appreciate Pulmonary assistance- per pulm NO need for repeat CT chest prior to OR- c/w Heparin gtt- 03/23 IVC Filter placement- Delay CABG for 1 week Tentative plan with Dr. Gaston Saturday 03/31- plan for 3-6 months anticoagulation (1st episode unprovoked PE)- c/s hypercoagulable work up as outpatient and ensure age appropriate cancerscreening complete- PSA <10 Multivessel CAD- 03/19 TTE EF 60-65%, impaired relaxation- EKG without acute ST T wave changes- cont Atorva 40 mg- Cardiac Cath uploaded: 03/16 at [facility] LM: 10-20%, LAD prox: 30%, LAD mid:95%, Diag 3rd: 99%, RCA: 85 %, PLV: 50%, Circ: 95%- Plan for CABG with Dr. Gaston on 03/31 s/p recent root canal- 03/19 orthopantogram: suspected periapical abscess of R maxillary premolar- dental consult T2DM- Holding home Metformin- SSI and hypoglycemia protocol- A1C 7.9%- BS 163-306 over past 24 hours- 03/22 Lantus 20 units x1- 03/24 Increase Lantus to 25 units and add Lispro 6 units before meals- cont Lantus 30 units and Lispro 8 units TID [facility]'s disease- 03/22 Reduce fludrocortisone to 0.05 mg MWFSun- 03/20 Reduce hydrocortisone to 10mg/5mg/2.5mg- 03/23 While NPO: Hydrocortisone 30mg/10mg/5mg- 03/24 Back to Hydrocortisone 10mg/5mg/2.5mg GERD- Continue home PPI HTN- Holding LAUREN in periop period- 03/20 Increase Carvedilol to 12.5mg BID- SBP 120s-140s over past 24 hours DLD- Atorva 40mg- lipids 155/44/82/141 HypothyroidismTSH 2.51- Continue home levothyroxine TIFFANI- MICHELLE- Adm Creatinine 1.42- Today 1.40 [1.52, 1.24, 1.53, 1.66, 1.38, 1.36] GI ppx: on PPICode status: Full Dispo:pending CABG Friday Seen and discussed with Dr. Arteaga Signature/Cosignature/Attestat ion:Provider/Team Contact Info-Pager [phone] Only - Shared Visit with Advanced Practice ProviderThis is a sharedvisit. I have reviewed the Advanced Practice Providers encounter note,approve the Advanced Practice Providers documentation, and provide thefollowing additional information from my personal encounter.Comments/ Additional FindingsContinue heparin gtt.Await CABG next week. Electronic Signatures:Leonel Arteaga) (Signed 28-Mar-2018 19:47)Authored: Signature/Cosignature/Attestat ionCo-Signer: Service, Subjective Data, Objective Data, Assessment and Plan,Signature/Cosignature/Att estationKate Ayala (LOAN SERVICES PROFESSIONAL-REPLANTER) (Signed 26-Mar-2018 16:20)Authored: Service, Subjective Data, Objective Data, Assessment and Plan,Signature/Cosignature/Att estation Last Updated: 28-Mar-2018 19:47 by Leonel Arteaga) [facility] Daily Progress Note-Endocrin ologyon 03-26-2018 Protein mass conc Service: Endocrinolo gy Subjective Data:DON ELKINS is a 67 year old Male who is Hospital Day # 9. Objective Data: Objective Information:T [id number]/8195% Date/Time03/26 11: 11: 11: 11: 11:45Range(35.9C - 36.8C ) (67 - 75 ) (17 - 18 ) (124 - 173 )/ (77 - 84 ) (95%- 97% ) Pain with Activity reported at 03/26 7:45: 0Pain at Rest reported at 03/26 7:45: 0 Physical Exam: Constitutional: Well developed, awake/alert/oriented x3, no distress, alert andcooperative, Patel facies, central obesity, supraclavicular fat pasEyes: PERRL, EOMI, clear scleraRespiratory/Thorax: Diffuse decrease air entry bilaterallyCardiovascular: S1-S2 regular, no murmursGastrointestinal: Nondistended, soft, non-tender, +BS, no straiePsychological: Appropriate mood and behaviorSkin: warm and dry, acanthosis nigricans Assessment and Plan:Assessment: Mr. Elkins is a 67 yo WM with no known history of CAD, who has a past medicalhistory of HTN, HLD, T2DM, Brigida's disease, hypothyroidism, COPD, AKASH onCPAP, prostate ca s/p prostatectomy in 2011, and psoriasis who was [facility] from [facility] on 03/18 forCABG youngal.Endocrine consulted fr 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 Brigida's Disease-- Fludrocortisone 0.05 mg 4 times weekly ( and friday)-- Continue Hydrocortisone to 10-5-2.5 mg at 5nq-89le-0ld DAILY as of tomorrow -On the day of the surgery (CABG) please give Hydrocortisone 30 mg by mouthonce at 5 am , check the cortisol level at 7 am , then continue Hydrocortisoneas 25 mg IV q6hrs thereafter as of 8 am. Please keep endo team informed aboutthe date of the surgery please. 2. T2DM No changes-- continue lantus 30 units once daily And Lispro 8 units TIDAC-- Continue ISS 2 units for every 50 above 150-- POCT AC and qHs-- Hypoglycemia protocol--Diabetic diet--will follow Please page with questions [phone] Patient seen and examined, plan discussed with Dr Quevedo Signature/Cosignature/Attestat ion:Attending AttestationI saw and evaluated the patient. I personally obtainedthe judge and critical portions of the history and physical exam or wasphysically present for judge and critical portions performed by theresident/fellow. I reviewed the resident/fellows documentation and discussedthe patient with the resident/fellow. I agree with the resident/fellowsmedical decision making as documented in the residents note.I personally evaluated the patient (as noted in the above attestation) [id number] Electronic Signatures:Starr Quevedo) (Signed 28-Mar-2018 09:07)Authored: Service, Signature/Cosignature/Attestat ionCo-Signer: Subjective Data, Objective Data, Assessment and Plan,Signature/Cosignature/Att Hasmukh Gabriel (Resident)) (Signed 26-Mar-2018 11:56)Authored: Subjective Data, Objective Data, Assessment and Plan,Signature/Cosignature/Att estation Last Updated: 28-Mar-2018 09:07 by Starr Quevedo) Normal [facility] GLUCOSE-POCTon 03-26-2018 Glucose mass conc 302 mg/dL High 74 - 99 [facility] Comment on above: Performed By: #### G BECKY ####[id number] [place] [address] Glucose mass conc 237 mg/dL High 74 - 99 [facility] Comment on above: Performed By: #### G BECKY ####[id number] [place] [address] Glucose mass conc 256 mg/dL High 74 - 99 [facility] Comment on above: Performed By: #### G BECKY ####[id number] [place] [address] Glucose mass conc 285 mg/dL High 74 - 99 [facility] Comment on above: Performed By: #### G BECKY ####[id number] [place] [address] Glucose mass conc 154 mg/dL High 74 - 99 [facility] Comment on above: Performed By: #### G BECKY ####[id number] [place] [address] HEPARIN ASSAY,UFHon 03-26-20 18 HEPARIN ASSAY,UFH 0.3 IU/mL Normal [facility] Comment on above: Result Comment: The therapeutic reference range for UFH may be either 0.3-0.6 IU/mL or 0.3-0.7 IU/mL based on the clinical setting for anticoagulant therapy and the associated nomogram used. For heparin dosing guidelines based on clinical scenario and Heparin Assay results, please refer to local Pharmacy and the [facility] Guidelines for Anticoagulation therapy available on the [facility] intranet at:[email or web address]_Guidelines_[email or web address] Performed By: #### H AUF ####[id number] [place] [address] HEPARIN ASSAY,UFH 0.4 IU/mL Normal [facility] Comment on above: Result Comment: The therapeutic reference range for UFH may be either 0.3-0.6 IU/mL or 0.3-0.7 IU/mL based on the clinical setting for anticoagulant therapy and the associated nomogram used. For heparin dosing guidelines based on clinical scenario and Heparin Assay results, please refer to local Pharmacy and the [facility] Guidelines for Anticoagulation therapy available on the [facility] intranet at:[email or web address]_[email or web address]_[email or web address] Performed By: #### H AUF ####[id number] [place] [address] PLATELETSon 03-26-2018 Platelets Auto #/vol (Bld) ORDER RECD Normal [facility] Comment on above: Result Comment: If t his patient is Rh Negative and if the Plateletproduct transfused is Rh Positive, review the useof WinRho Prophylaxis for this patient. Performed By: #### P LT ####[id number] [place] [address] RENAL FUNCTION PANELon 03-26 Albumin mass conc 4.0 g/dL Normal 3.4 - 5.0 [facility] Comment on above: Performed By: #### R ENAL ####[id number] [place] [address] Anion gap 3 molar conc 16 mmol/L Normal 10 - 20 [facility] Comment on above: Performed By: #### R ENAL ####[id number] [place] [address] Calcium mass conc 9.4 mg/dL Normal 8.6 - 10.6 [facility] [facility] Comment on above: Performed By: #### R ENAL ####[id number] [place] [address] Chloride molar conc 100 mmol/L Normal 98 - 107 [facility] Comment on above: Performed By: #### R ENAL ####[id number] [place] [address] Creatinine mass conc 1.46 mg/dL High 0.50 - 1.30 [facility] Comment on above: Performed By: #### R ENAL ####[id number] [place] [address] GFR- AM. 58 mL/min/1.73m2 Abnormal >60 [facility] Comment on above: Result Comment: CALC ULATIONS OF ESTIMATED GFR ARE PERFORMED USING THE MDRD STUDY EQUATION FOR THE IDMS-TRACEABLE CREATININE METHODS. CLIN CHEM 2007;53:766-72 Performed By: #### R ENAL ####[id number] [place] [address] GFR-NON AM. 48 mL/min/1.73m2 Abnormal >60 [facility] Comment on above: Performed By: #### R ENAL ####[id number] [place] [address] Glucose mass conc 231 mg/dL High 74 - 99 [facility] Comment on above: Performed By: #### R ENAL ####[id number] [place] [address] HCO3 molar conc (Bld) 25 mmol/L Normal 21 - 32 [facility] Comment on above: Performed By: #### R ENAL ####[id number] [place] [address] Phosphate mass conc 4.2 mg/dL Normal 2.5 - 4.9 [facility] Comment on above: Result Comment: The performance characteristics of phosphorus testing in heparinized plasma have been validated by the individual laboratory site where testing is performed. Testing on heparinized plasma is not approved by the FDA; however, such approval is not necessary. Performed By: #### R ENAL ####[id number] [place] [address] Potassium molar conc 4.6 mmol/L Normal 3.5 - 5.3 [facility] Comment on above: Performed By: #### R ENAL ####[id number] [place] [address] Sodium molar conc 136 mmol/L Normal 136 - 145 [facility] Comment on above: Performed By: #### R ENAL ####[id number] [place] [address] Urea nitrogen mass conc 21 mg/dL Normal 6 - 23 [facility] Comment on above: Performed By: #### R ENAL ####[id number] [place] [address] Albumin mass conc 3.9 g/dL Normal 3.4 - 5.0 [facility] Comment on above: Performed By: #### R ENAL ####[id number] [place] [address] Anion gap 3 molar conc 16 mmol/L Normal 10 - 20 [facility] Comment on above: Performed By: #### R ENAL ####[id number] [place] [address] Calcium mass conc 9.3 mg/dL Normal 8.6 - 10.6 [facility] Comment on above: Performed By: #### R ENAL ####[id number] [place] [address] Chloride molar conc 102 mmol/L Normal 98 - 107 [facility] Comment on above: Performed By: #### R ENAL ####[id number] [place] [address] Creatinine mass conc 1.40 mg/dL High 0.50 - 1.30 [facility] Comment on above: Performed By: #### R ENAL ####[id number] [place] [address] GFR- AM. 61 mL/min/1.73m2 Normal >60 [facility] Comment on above: Result Comment: CALC ULATIONS OF ESTIMATED GFR ARE PERFORMED USING THE MDRD STUDY EQUATION FOR THE IDMS-TRACEABLE CREATININE METHODS. CLIN CHEM 2007;53:766-72 Performed By: #### R ENAL ####[id number] [place] [address] GFR-NON AM. 50 mL/min/1.73m2 Abnormal >60 [facility] Comment on above: Performed By: #### R ENAL ####[id number] [place] [address] Glucose mass conc 153 mg/dL High 74 - 99 [facility] Comment on above: Performed By: #### R ENAL ####[id number] [place] [address] HCO3 molar conc (Bld) 24 mmol/L Normal 21 - 32 [facility] Comment on above: Performed By: #### R ENAL ####[id number] [place] [address] Phosphate mass conc 4.8 mg/dL Normal 2.5 - 4.9 [facility] Comment on above: Result Comment: The performance characteristics of phosphorus testing in heparinized plasma have been validated by the individual laboratory site where testing is performed. Testing on heparinized plasma is not approved by the FDA; however, such approval is not necessary. Performed By: #### R ENAL ####[id number] [place] [address] Potassium molar conc 4.3 mmol/L Normal 3.5 - 5.3 [facility] Comment on above: Performed By: #### R ENAL ####[id number] [place] [address] Sodium molar conc 138 mmol/L Normal 136 - 145 [facility] Comment on above: Performed By: #### R ENAL ####[id number] [place] [address] Urea nitrogen mass conc 22 mg/dL Normal 6 - 23 [facility] Comment on above: Performed By: #### R ENAL ####[id number] [place] [address] REQUEST-LEUKOREDUCED RED HERI LSon 03-26-2018 REQUEST-LEUKOREDU TATUM RED CELLS ORDER RECD Normal [facility] Comment on above: Performed By: #### O SOCIAL SCIENCES INSTRUCTOR ####[id number] [place] [address] STAPH/MRSA SCREENon 03-26-20 18 STAPH/MRSA SCREEN TEST STAPH/MRSA SCRE EN WAS CANCELLED, 03/26/2018 17:39 ?Cancel Reason: Discontinued.PATIENT: DON ELKINS LOCATION: [facility] [id number]#: [id number] : 50 AGE: SEX: M ORDERED BY: MONI MILLIGAN: ANTERIOR NARES COLLECTED: 03/26/18 17:39ANTIBIOTICS AT JIMENA.: RECEIVED : SITE: NARES R E S U L T S STAPH/MRSA SCREEN CANCELLED 03/26/18 17:55 Normal [facility] Comment on above: Performed By: #### S TAPH ####[id number] [place] [address] CBCon 03-25-2018 Erythrocyte distribution width Auto Ratio (RBC) 13.0 % Normal 11.5 - 14.5 [facility] Comment on above: Performed By: #### G BECKY ####[id number] [place] [address] Hematocrit Auto Volume Fraction (Bld) 38.4 % Low 41.0 - 52.0 [facility] Comment on above: Performed By: #### G BECKY ####[id number] [place] [address] Hemoglobin mass conc (Bld) 12.9 g/dL Low 13.5 - 17.5 [facility] Comment on above: Performed By: #### G BECKY ####[id number] [place] [address] MCHC Auto mass conc (RBC) 33.6 g/dL Normal 32.0 - 36.0 [facility] Comment on above: Performed By: #### G BECKY ####[id number] [place] [address] MCV Auto Entitic volume (RBC) 94 fL Normal 80 - 100 [facility] Comment on above: Performed By: #### G BECKY ####[id number] [place] [address] Nucleated RBC/100 WBC Ratio (Bld) 0.0 /100 WBC Normal 0.0-0.0 [facility] Comment on above: Performed By: #### G BECKY ####[id number] [place] [address] Platelets Auto #/vol (Bld) 219 10*3/uL Normal 150 - 450 [facility] Comment on above: Performed By: #### G BECKY ####[id number] [place] [address] RBC Auto #/vol (Bld) 4.10 x10E12/L Low 4.50 - 5.90 [facility] Comment on above: Performed By: #### G BECKY ####[id number] [place] [address] WBC Auto #/vol (Bld) 8.2 10*3/uL Normal 4.4 - 11.3 [facility] Comment on above: Performed By: #### G BECKY ####[id number] [place] [address] Daily Progress Note-Cardiosandra chavez 03-25-2018 Protein mass conc Service: Cardiology Subjective Data:DON ELKINS is a 67 year old Male who is Hospital Day # 8. Additional Information:BP remains of 130s-150s/60-80s, BS improved to 160s this AM - c/w Heparin gtt- c/w Lantus 25 units daily and Lispro 6 units before meals- Plan for CABG next week Objective Data: Objective Information:T DRYOWhN2Agiwh91.39763100/8497% Date/Time03/25 8: 8: 8: 8: 8:13Range(35.8C - 36.8C ) (68 - 86 ) (16 - 18 ) (128 - 166 )/ (80 - 85 ) (96%- 98% ) Pain with Activity reported at 03/25 0:10: 0Pain at Rest reported at 03/25 0:10: 0 Jcdpvof30/7 3:46: Weight in kg (Weight (kg)) 107.911 3:46: Weight in lbs ((lbs)) 237.8 Physical Exam: Constitutional: Resting in bed, NADHead/Neck: No JVDRespiratory/Thorax: CTABCardiovascular: RRR, S1 S2Ewedsnksivztvpsv: soft, NT/NDExtremities: No edemaNeurological: alert and oriented p9Uowibnegowgbs: Appropriate mood and behaviorSkin: psoriasis plaque over elbows and knees; otherwise warm and dry; rightgroin drsg intact Medication: Medications: Continuous Medications -- 1. Sodium Chloride 0.9% .: 250 mL IntraVenous Scheduled Medications -- 1. Aspirin Chewable: 81 mg Oral Daily2. Atorvastatin: 40 mg Oral Daily3. Carvedilol: 12.5 mg Oral 2 Times a Day4. Citalopram: 20 mg Oral Daily5. Docusate 50 mg - Senna 8.6 m tablet(s) Oral 2 Times a Day6. Fludrocortisone: 0.05 mg Oral 7. Heparin (Repeat Bolus) Injectable: 4000 unit(s) IntraVenous Push Every 6Avahe1. Hydrocortisone: 10 mg Oral 9. Hydrocortisone: 5 mg Oral 10. Hydrocortisone: 2.5 mg Oral 11. Insulin Glargine (Lantus) Injectable: 25 unit(s) SubCutaneous Every 23Gsmie14. Insulin Lispro (HumaLOG) Injectable: 6 unit(s) SubCutaneous 3 Times aDay Before Meals13. Insulin Lispro Mild Corrective Scale: unit(s) SubCutaneous 3 Times a DayBefore Meals14. Levothyroxine: 150 microgram(s) Oral Daily15. Pantoprazole: 40 mg Oral Daily16. Polyethylene Glycol: 17 gram(s) Oral Daily17. rOPINIRole: 6 mg Oral 18. Sodium Chloride 0.65% Nasal [place]: 2 spray(s) Each Nostril 2 Times aDay PRN Medications -- 1. Dextrose 50% in Water Injectable: 25 gram(s) IntraVenous Push Every 28Iwihknm0. Glucagon Injectable: 1 mg IntraMuscular Every 15 Minutes Currently Suspended Medications -- 1. Chlorhexidine Gluconate 4% Topical: 1 application(s) Topical Once Recent Lab Results: Results: I have reviewed these laboratory results: Glucose_POCT Trending View [id number] 11:19:00 25-Mar-2018 07:47:00Glucose-JGPV380 H 163 H Heparin assay, UFH 25-Mar-2018 07:31:00 ResultValueHeparin assay, UFH 0.4 Complete Blood Count 24-Mar-2018 21:50:00 ResultValueWhite Blood Cell Count 8.2Nucleated Erythrocyte Count 0.0Red Blood Cell Count 4.10 LHGB 12.9 LHCT 38.4 LMCV 94MCHC 33.6PLT 219RDW-CV 13.0 Renal Function Panel 24-Mar-2018 21:50:00 ResultValueGlucose, Serum 246 HNA 138K 4.4CL 103Bicarbonate, Serum 27Anion Gap, Serum 12BUN 26 HCREAT 1.52 HGFR-Non 46 AGFR- 56 ACalcium, Serum 9.3Phosphorus, Serum 4.4ALB 3.8 Assessment and Plan:Assessment:67 yo M with HTN, DLD, T2DM, Addisson's, GERD, prostate ca s/p prostatectomy [id number], hypothyroidism, psoriasis, and most recently diagnosed with a PE andmultivessel CAD transferred to medicine at [facility] from [facility] on03/18 for CABG eval. Multiple PEs- addison. Segmental and subsegmental PE on CT- Repeat TTE --> No Right dilation or strain- 2V CXR --> No radiographic evidence of acute cardiopulmonary process.- Appreciate Pulmonary assistance- c/w Heparin gtt- 03/23 IVC Filter placement- Delay CABG for 1 week Tentative plan with Dr. Gaston Friday 03/30-- plan for 3-6 months anticoagulation (1st episode unprovoked PE)- c/s hypercoagulable work up as outpatient and ensure age appropriate cancerscreening complete- PSA <10 Multivessel CAD- 03/19 TTE EF 60-65%, impaired relaxation- EKG without acute ST T wave changes- Hold LAUREN perioperatively- Starting Atorva 40 mg- Switch Metoprolol to Carvedilol for better BP control- Cardiac Cath uploaded- Plan for CABG with Dr. Gaston 03/30 s/p recent root canal- orthopantogram T2DM- Holding home Metformin- SSI and hypoglycemia protocol- A1C 7.9%- BS 217, 262, 242, 312, 240, 163 over past 24 hours- 03/22 Lantus 20 units x1- 03/24 Increase Lantus to 25 units and add Lispro 6 units before meals- Increase Lantus to 30 units and increase Lispro to 8 units TID Brigida's disease- 03/22 Reduce fludrocortisone to 0.05 mg MWFSun- 03/20 Reduce hydrocortisone to 10mg/5mg/2.5mg- 03/23 While NPO: Hydrocortisone 30mg/10mg/5mg- 03/24 Back to Hydrocortisone 10mg/5mg/2.5mg GERD- Continue home PPI HTN- Holding LAUREN- 03/20 Increase Carvedilol to 12.5mg BID- 128/82 - 166/85 over past 24 hours DLD- Atorva 40mg- lipids 155/44/82/141 HypothyroidismTSH 2.51- Continue home levothyroxine TIFFANI- MICHELLE- Adm Creatinine 1.42- Today 1.52 [1.24, 1.53, 1.66, 1.38, 1.36] GI ppx: on PPICode status: Full Signature/Cosignature/Attestat ion:Attending Only - Shared Visit with Advanced Practice ProviderThis is a sharedvisit. I have reviewed the Advanced Practice Providers encounter note,approve the Advanced Practice Providers documentation, and provide thefollowing additional information from my personal encounter.Comments/ Additional FindingsContinue anticoagulation for PE.No angina overnight.Await CABG on Friday. Electronic Signatures:Vito Patino (LOAN SERVICES PROFESSIONAL-REPLANTER) (Signed 25-Mar-2018 16:22)Authored: Service, Subjective Data, Objective Data, Assessment and Plan,Signature/Cosignature/Att estationLeonel Arteaga) (Signed 26-Mar-2018 11:18)Authored: Signature/Cosignature/Attestat ionCo-Signer: Subjective Data, Objective Data, Assessment and Plan,Signature/Cosignature/Att estation Last Updated: 26-Mar-2018 11:18 by Leonel Arteaga) Normal [facility] Daily Progress Note-Endocrin ologyon 03-25-2018 Protein mass conc Consult Type: subseq uent visit/care Service: Endocrinology Subjective Data:DON ELKINS is a 67 year old Male who is Hospital Day # 8. Objective Data: Objective Information:T ZIXDWhL8Tlkpa94.42683292/7997% Date/Time03/25 16: 16: 16: 16: 16:00Range(35.8C - 36.2C ) (68 - 78 ) (17 - 18 ) (128 - 166 )/ (79 - 86 ) (96%- 97% ) Pain with Activity reported at 03/25 8:00: 0Pain at Rest reported at 03/25 8:00: 0 Lxfvtmw44/7 3:46: Weight in kg (Weight (kg)) 107.911 3:46: Weight in lbs ((lbs)) 237.8 Physical Exam: Constitutional: Well developed, awake/alert/oriented x3, no distress, alert andcooperative, Patel facies, central obesity, supraclavicular fat pasEyes: PERRL, EOMI, clear scleraRespiratory/Thorax: Diffuse decrease air entry bilaterallyCardiovascular: S1-S2 regular, no murmursGastrointestinal: Nondistended, soft, non-tender, +BS, no straiePsychological: Appropriate mood and behaviorSkin: warm and dry, acanthosis nigricans Recent Lab Results: Results: I have reviewed these laboratory results: Glucose_POCT Trending View [id number]-[id number] 12:46:00 24-Mar-2018 11:46:00 24-Mar-2018 06:54:00 23-Mar-2018 20:50:00 23-Mar-2018 15:44:00 23-Mar-2018 11:37:00 58-[id number]-255508:37:00 22-Mar-2018 21:18:00Glucose-CSMN042 H 262 H 217 H 290 H 228 H 226 H 189H 275 H Basic Metabolic Panel 24-Mar-2018 03:30:00 ResultValueGlucose, Serum 358 HNA 134 LK 4.2CL 103Bicarbonate, Serum 21Anion Gap, Serum 14BUN 26 HCREAT 1.24GFR-Non 58 AGFR- 70Calcium, Serum 9.1 Renal Function Panel Trending View [id number]-[id number] 20:34:00 22-Mar-2018 19:24:00Glucose, Kytvc766 H 226 UPS273 138K4.2 4.9ZQ075 102Bicarbonate, Serum24 25Anion Gap, Serum14 15ICM80 24 HCREAT1.23 1.53 HGFR-Non Hecxzrww33 A 46 AGFR- Bohbeqqt59 56 ACalcium, Serum9.2 9.0Phosphorus, Serum3.9 4.0ALB3.7 3.7 Assessment and Plan:Assessment: Mr. Elkins is a 67 yo WM with no known history of CAD, who has a past medicalhistory of HTN, HLD, T2DM, [facility]'s disease, hypothyroidism, COPD, AKASH onCPAP, prostate ca s/p prostatectomy in 2011, and psoriasis who was [facility]to [facility] service at [facility] from [facility] on 03/18 forCABG eval.Endocrine consulted fr evaluation of [facility] disease and treatment periop Patient was on supra-therapeutic dose of HCT 20-0-20 , fludrocortisone 0.1 ,mgdailyPatient has uncontrolled HTN and uncontrolled BSMost likely tomorrow (03/23) IVC filter placement Recommendations:1. [facility]'s Disease-- Fludrocortisone 0.05 mg 4 times weekly ( and friday)-- Continue Hydrocortisone to 10-5-2.5 mg at 9zx-32ly-7em DAILY as of tomorrow -On the day of the surgery (CABG) please give Hydrocortisone 30 mg by mouthonce at 5 am , check the cortisol level at 7 am , then continue Hydrocortisoneas 25 mg IV q6hrs thereafter as of 8 am. Please keep endo team informed aboutthe date of the surgery please. 2. T2DM-- Make lantus 30 units once daily And Make Lispro 8 units TIDAC-- Continue ISS 2 units for every 50 above 150-- POCT AC and qHs-- Hypoglycemia protocol--Diabetic diet--will follow Please page with questions [phone] Patient seen and examined, plan discussed with Dr Quevedo Signature/Cosignature/Attestat ion:Attending AttngoziI saw and evaluated the patient. I personally obtainedthe judge and critical portions of the history and physical exam or wasphysically present for judge and critical portions performed by theresident/fellow. I reviewed the resident/fellows documentation and discussedthe patient with the resident/fellow. I agree with the resident/fellowsmedical decision making as documented in the residents note.I personally evaluated the patient (as noted in the above attestation) [id number] Electronic Signatures:Starr Quevedo) (Signed 28-Mar-2018 09:06)Authored: Signature/Cosignature/Attestat ionCo-Signer: Service, Subjective Data, Objective Data, Assessment and Plan,Signature/Cosignature/Att estationHasmukh Stephenson (Resident)) (Signed 25-Mar-2018 19:27)Authored: Service, Subjective Data, Objective Data, Assessment and Plan,Signature/Cosignature/Att estation Last Updated: 28-Mar-2018 09:06 by Starr Quevedo) Normal [facility] GLUCOSE-POCTon 03-25-2018 Glucose mass conc 181 mg/dL High 74 - 99 [facility] Comment on above: Performed By: #### G BECKY ####[id number] [place] [address] Glucose mass conc 306 mg/dL High 74 - 99 [facility] Comment on above: Performed By: #### G BECKY ####[id number] [place] [address] Glucose mass conc 291 mg/dL High 74 - 99 [facility] Comment on above: Performed By: #### G BECKY ####[id number] [place] [address] Glucose mass conc 163 mg/dL High 74 - 99 [facility] Comment on above: Performed By: #### G BECKY ####[id number] [place] [address] HEPARIN ASSAY,UFHon 03-25-20 18 HEPARIN ASSAY,UFH 0.4 IU/mL Normal [facility] Comment on above: Result Comment: The therapeutic reference range for UFH may be either 0.3-0.6 IU/mL or 0.3-0.7 IU/mL based on the clinical setting for anticoagulant therapy and the associated nomogram used. For heparin dosing guidelines based on clinical scenario and Heparin Assay results, please refer to local Pharmacy and the [facility] Guidelines for Anticoagulation therapy available on the [facility] intranet at:[email or web address] Performed By: #### G BECKY ####[id number] [place] [address] RENAL FUNCTION PANELon 03-25 Albumin mass conc 3.8 g/dL Normal 3.4 - 5.0 [facility] Comment on above: Performed By: #### G BECKY ####[id number] [place] [address] Anion gap 3 molar conc 12 mmol/L Normal 10 - 20 [facility] Comment on above: Performed By: #### G BECKY ####[id number] [place] [address] Calcium mass conc 9.3 mg/dL Normal 8.6 - 10.6 [facility] Comment on above: Performed By: #### G BECKY ####[id number] [place] [address] Chloride molar conc 103 mmol/L Normal 98 - 107 [facility] Comment on above: Performed By: #### G BECKY ####[id number] [place] [address] Creatinine mass conc 1.52 mg/dL High 0.50 - 1.30 [facility] Comment on above: Performed By: #### G BECKY ####[id number] [place] [address] GFR- AM. 56 mL/min/1.73m2 Abnormal >60 [facility] Comment on above: Result Comment: CALC ULATIONS OF ESTIMATED GFR ARE PERFORMED USING THE MDRD STUDY EQUATION FOR THE IDMS-TRACEABLE CREATININE METHODS. CLIN CHEM 2007;53:766-72 Performed By: #### G BECKY ####[id number] [place] [address] GFR-NON AM. 46 mL/min/1.73m2 Abnormal >60 [facility] Comment on above: Performed By: #### G BECKY ####[id number] [place] [address] Glucose mass conc 246 mg/dL High 74 - 99 [facility] Comment on above: Performed By: #### G BECKY ####[id number] [place] [address] HCO3 molar conc (Bld) 27 mmol/L Normal 21 - 32 [facility] Comment on above: Performed By: #### G BECKY ####[id number] [place] [address] Phosphate mass conc 4.4 mg/dL Normal 2.5 - 4.9 [facility] Comment on above: Result Comment: The performance characteristics of phosphorus testing in heparinized plasma have been validated by the individual laboratory site where testing is performed. Testing on heparinized plasma is not approved by the FDA; however, such approval is not necessary. Performed By: #### G BECKY ####[id number] [place] [address] Potassium molar conc 4.4 mmol/L Normal 3.5 - 5.3 [facility] Comment on above: Performed By: #### G BECKY ####[id number] [place] [address] Sodium molar conc 138 mmol/L Normal 136 - 145 [facility] Comment on above: Performed By: #### G BECKY ####[id number] [place] [address] Urea nitrogen mass conc 26 mg/dL High 6 - 23 [facility] Comment on above: Performed By: #### G BECKY ####[id number] [place] [address] BASIC METABOLIC PANELon 11-0 2018 Anion gap 3 molar conc 14 mmol/L Normal 10 - 20 [facility] Comment on above: Performed By: #### B MP ####[id number] [place] [address] Calcium mass conc 9.1 mg/dL Normal 8.6 - 10.6 [facility] Comment on above: Performed By: #### B MP ####[id number] [place] [address] Chloride molar conc 103 mmol/L Normal 98 - 107 [facility] Comment on above: Performed By: #### B MP ####[id number] [place] [address] Creatinine mass conc 1.24 mg/dL Normal 0.50 - 1.30 [facility] Comment on above: Performed By: #### B MP ####[id number] [place] [address] GFR- AM. 70 mL/min/1.73m2 Normal >60 [facility] Comment on above: Result Comment: CALC ULATIONS OF ESTIMATED GFR ARE PERFORMED USING THE MDRD STUDY EQUATION FOR THE IDMS-TRACEABLE CREATININE METHODS. CLIN CHEM 2007;53:766-72 Performed By: #### B MP ####[id number] [place] [address] GFR-NON AM. 58 mL/min/1.73m2 Abnormal >60 [facility] Comment on above: Performed By: #### B MP ####[id number] [place] [address] Glucose mass conc 358 mg/dL High 74 - 99 [facility] Comment on above: Performed By: #### B MP ####[id number] [place] [address] HCO3 molar conc (Bld) 21 mmol/L Normal 21 - 32 [facility] Comment on above: Performed By: #### B MP ####[id number] [place] [address] Potassium molar conc 4.2 mmol/L Normal 3.5 - 5.3 [facility] Comment on above: Performed By: #### B MP ####[id number] [place] [address] Sodium molar conc 134 mmol/L Low 136 - 145 [facility] Comment on above: Performed By: #### B MP ####[id number] [place] [address] Urea nitrogen mass conc 26 mg/dL High 6 - 23 [facility] Comment on above: Performed By: #### B MP ####[id number] [place] [address] CBCon 03-24-2018 Erythrocyte distribution width Auto Ratio (RBC) 12.9 % Normal 11.5 - 14.5 [facility] [facility] Comment on above: Performed By: #### C BC ####[id number] [place] [address] Hematocrit Auto Volume Fraction (Bld) 40.0 % Low 41.0 - 52.0 [facility] Comment on above: Performed By: #### C BC ####[id number] [place] [address] Hemoglobin mass conc (Bld) 13.4 g/dL Low 13.5 - 17.5 [facility] Comment on above: Performed By: #### C BC ####[id number] [place] [address] MCHC Auto mass conc (RBC) 33.5 g/dL Normal 32.0 - 36.0 [facility] Comment on above: Performed By: #### C BC ####[id number] [place] [address] MCV Auto Entitic volume (RBC) 92 fL Normal 80 - 100 [facility] Comment on above: Performed By: #### C BC ####[id number] [place] [address] Nucleated RBC/100 WBC Ratio (Bld) 0.0 /100 WBC Normal 0.0-0.0 [facility] Comment on above: Performed By: #### C BC ####[id number] [place] [address] Platelets Auto #/vol (Bld) 216 10*3/uL Normal 150 - 450 [facility] Comment on above: Performed By: #### C BC ####[id number] [place] [address] RBC Auto #/vol (Bld) 4.33 x10E12/L Low 4.50 - 5.90 [facility] Comment on above: Performed By: #### C BC ####[id number] [place] [address] WBC Auto #/vol (Bld) 7.6 10*3/uL Normal 4.4 - 11.3 [facility] Comment on above: Performed By: #### C BC ####[id number] [place] [address] Erythrocyte distribution width Auto Ratio (RBC) 12.9 % Normal 11.5 - 14.5 [facility] Comment on above: Performed By: #### C BC ####[id number] [place] [address] Hematocrit Auto Volume Fraction (Bld) 39.8 % Low 41.0 - 52.0 [facility] Comment on above: Performed By: #### C BC ####[id number] [place] [address] Hemoglobin mass conc (Bld) 13.6 g/dL Normal 13.5 - 17.5 [facility] Comment on above: Performed By: #### C BC ####[id number] [place] [address] MCHC Auto mass conc (RBC) 34.2 g/dL Normal 32.0 - 36.0 [facility] Comment on above: Performed By: #### C BC ####[id number] [place] [address] MCV Auto Entitic volume (RBC) 92 fL Normal 80 - 100 [facility] Comment on above: Performed By: #### C BC ####[id number] [place] [address] Nucleated RBC/100 WBC Ratio (Bld) 0.0 /100 WBC Normal 0.0-0.0 [facility] Comment on above: Performed By: #### C BC ####[id number] [place] [address] Platelets Auto #/vol (Bld) 216 10*3/uL Normal 150 - 450 [facility] Comment on above: Performed By: #### C BC ####[id number] [place] [address] RBC Auto #/vol (Bld) 4.34 x10E12/L Low 4.50 - 5.90 [facility] Comment on above: Performed By: #### C BC ####[id number] [place] [address] WBC Auto #/vol (Bld) 7.5 10*3/uL Normal 4.4 - 11.3 [facility] Comment on above: Performed By: #### C BC ####[id number] [place] [address] Daily Progress Note-Yann chavez 03-24-2018 Protein mass conc Service: Cardiology Subjective Data:DON ELKINS is a 67 year old Male who is Hospital Day # 7. Additional Information:s/p IVC Filter placement yesterday, SBP improved to 130s-150s/60-80s, BSremain elevated 200s - c/w Heparin gtt- Increase Lantus to 25 units- Add Lispro 6 units before meals- Plan for CABG next week Objective Data: Objective Information:T QYOCZcG8Cdnos17.24003282/8496% Date/Time03/24 7: 7: 7: 8: 7:44Range(35.6C - 37C ) (67 - 85 ) (18 - 22 ) (122 - 158 )/ (68 - 84 ) (93% -96% )Highest temp of 37 C was recorded at 03/23 11:00 Pain with Activity reported at 03/24 3:34: 0Pain at Rest reported at 03/24 3:34: 0 Znqdsrc09/6 3:33: Weight in kg (Weight (kg)) 108.311 3:33: Weight in lbs ((lbs)) 238.8 Physical Exam: Constitutional: Resting in bed, NADHead/Neck: No JVDRespiratory/Thorax: CTABCardiovascular: RRR, S1 W7Exfudbijvkcjsxsc: soft, NT/NDExtremities: No edemaNeurological: alert and oriented t1Mjazsvqpepzbl: Appropriate mood and behaviorSkin: psoriasis plaque over elbows and knees; otherwise warm and dry; rightgroin drsg intact Medication: Medications: Continuous Medications -- 1. Heparin 25,000 units/ D5W 250 mL Infusion: 1000 units/hr IntraVenous Scheduled Medications -- 1. Aspirin Chewable: 81 mg Oral Daily2. Atorvastatin: 40 mg Oral Daily3. Carvedilol: 12.5 mg Oral 2 Times a Day4. Citalopram: 20 mg Oral Daily5. Docusate 50 mg - Senna 8.6 m tablet(s) Oral 2 Times a Day6. Fludrocortisone: 0.05 mg Oral 7. Heparin (Repeat Bolus) Injectable: 4000 unit(s) IntraVenous Push Every 0Yjzgw5. Hydrocortisone: 10 mg Oral 9. Hydrocortisone: 5 mg Oral 10. Hydrocortisone: 2.5 mg Oral 11. Insulin Glargine (Lantus) Injectable: 20 unit(s) SubCutaneous Every 45Lzovq55. Insulin Lispro Mild Corrective Scale: unit(s) SubCutaneous 3 Times a DayBefore Meals13. Levothyroxine: 150 microgram(s) Oral Daily14. Pantoprazole: 40 mg Oral Daily15. Polyethylene Glycol: 17 gram(s) Oral Daily16. rOPINIRole: 6 mg Oral 17. Sodium Chloride 0.65% Nasal Holbrook: 2 spray(s) Each Nostril 2 Times aDay PRN Medications -- 1. Dextrose 50% in Water Injectable: 25 gram(s) IntraVenous Push Every 54Yvxohia0. Glucagon Injectable: 1 mg IntraMuscular Every 15 Minutes Currently Suspended Medications -- 1. Chlorhexidine Gluconate 4% Topical: 1 application(s) Topical Once Recent Lab Results: Results: I have reviewed these laboratory results: Glucose_POCT Trending View [id number]-[id number] 06:54:00 23-Mar-2018 20:50:00Glucose-QHOX759 H 290 H Complete Blood Count Trending View Cbulht24-Lsh-8122 03:30:00 23-Mar-2018 20:34:00White Blood Cell Count7.6 7.5Nucleated Erythrocyte Count0.0 0.0Red Blood Cell Count4.33 L 4.34 LHGB13.4 L 13.6HCT40.0 L 39.8 LMCV92 67AKCC41.5 34.5SNJ149 216RDW-CV12.9 12.9 Basic Metabolic Panel 24-Mar-2018 03:30:00 ResultValueGlucose, Serum 358 HNA 134 LK 4.2CL 103Bicarbonate, Serum 21Anion Gap, Serum 14BUN 26 HCREAT 1.24GFR-Non 58 AGFR- 70Calcium, Serum 9.1 Heparin assay, UFH Trending View [id number] 03:30:00 23-Mar-2018 23:27:00Heparin assay, UFH0.4 0.3 Renal Function Panel 23-Mar-2018 20:34:00 ResultValueGlucose, Serum 271 HNA 136K 4.2CL 102Bicarbonate, Serum 24Anion Gap, Serum 14BUN 21CREAT 1.23GFR-Non 59 AGFR- 71Calcium, Serum 9.2Phosphorus, Serum 3.9ALB 3.7 Radiology Results: Results: Conclusion:CONCLUSIONS: 1. Successful IVC filter insertion. Cardiac Catheterization Lab Procedures [Mar 23 2018 2:06PM] Conclusion:[facility] LAB PVR (Arterial Physiologic) BROOKS [Mar 20 2018 11:27AM] Conclusion:[facility] LAB PVR (Arterial Physiologic) BROOKS [Mar 20 2018 11:14AM] Conclusion:[facility] LAB Pre-op Vessel Vein Mapping [Mar 20 2018 11:08AM] Conclusion:[facility] LAB Arterial Duplex Ultrasound [Mar 20 2018 11:01AM] Assessment and Plan:Assessment:67 yo M with HTN, DLD, T2DM, Addisson's, GERD, prostate ca s/p prostatectomy [id number], hypothyroidism, psoriasis, and most recently diagnosed with a PE andmultivessel CAD transferred to medicine at [facility] from [facility] on03/18 for CABG eval. Multiple PEs- addison. Segmental and subsegmental PE on CT- Repeat TTE --> No Right dilation or strain- 2V CXR --> No radiographic evidence of acute cardiopulmonary process.- Appreciate Pulmonary assistance- c/w Heparin gtt- s/p IVC Filter yesterday- Delay CABG for 1 week T[address]ative plan with Dr. Gaston Friday 03/30-- plan for 3-6 months anticoagulation (1st episode unprovoked PE)- c/s hypercoagulable work up as outpatient and ensure age appropriate cancerscreening complete- PSA <10 Multivessel CAD- 03/19 TTE EF 60-65%, impaired relaxation- EKG without acute ST T wave changes- Hold LAUREN perioperatively- Starting Atorva 40 mg- Switch Metoprolol to Carvedilol for better BP control- Cardiac Cath uploaded- Plan for CABG with Dr. 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 Reduce fludrocortisone to 0.05 mg MWFSun- 03/20 Reduce hydrocortisone to 10mg/5mg/2.5mg- 03/23 While NPO: Hydrocortisone 30mg/10mg/5mg- Back to Hydrocortisone 10mg/5mg/2.5mg GERD- Continue home PPI HTN- Holding LAUREN- 03/20 Increase Carvedilol to 12.5mg BID- 131/68 - 156/86 over past 24 hours DLD- Atorva 40mg- lipids 155/44/82/141 HypothyroidismTSH 2.51- Continue home levothyroxine TIFFANI- MICHELLE- Adm Creatinine 1.42- Today 1.24 [1.53, 1.66, 1.38, 1.36] GI ppx: on PPICode status: Full Signature/Cosignature/Attestat ion:Attending Only - Shared Visit with Advanced Practice ProviderThis is a sharedvisit. I have reviewed the Advanced Practice Providers encounter note,approve the Advanced Practice Providers documentation, and provide thefollowing additional information from my personal encounter.Comments/ Additional FindingsS/p IVC filter yesterday.Continue heparin gtt for PE. Await CABG on Friday.Appreciate Pulmonary input. Electronic Signatures:Vito Patino (LOAN SERVICES PROFESSIONAL-REPLANTER) (Signed 24-Mar-2018 09:27)Authored: Service, Subjective Data, Objective Data, Assessment and Plan,Signature/Cosignature/Att estationLeonel Arteaga) (Signed 26-Mar-2018 11:20)Authored: Signature/Cosignature/Attestat ionCo-Signer: Service, Subjective Data, Objective Data, Assessment and Plan,Signature/Cosignature/Att estation Last Updated: 26-Mar-2018 11:20 by Leonel Arteaga) [facility] Daily Progress Note-Endocrin ologyon 03-24-2018 Protein mass conc Consult Type: subseq uent visit/care Service: Endocrinology Subjective Data:DON ELKINS is a 67 year old Male who is Hospital Day # 7. BS above range. Objective Data: Objective Information:T BGJVVrU9Umgaa25.43663578/8397% Date/Time03/24 12: 12: 12: 12: 12:41Range(35.6C - 36.8C ) (67 - 86 ) (16 - 22 ) (122 - 158 )/ (69 - 84 ) (95%- 97% ) Pain with Activity reported at 03/24 3:34: 0Pain at Rest reported at 03/24 3:34: 0 Physical Exam: Constitutional: Well developed, awake/alert/oriented x3, no distress, alert andcooperative, Patel facies, central obesity, supraclavicular fat pasEyes: PERRL, EOMI, clear scleraRespiratory/Thorax: Diffuse decrease air entry bilaterallyCardiovascular: S1-S2 regular, no murmursGastrointestinal: Nondistended, soft, non-tender, +BS, no straiePsychological: Appropriate mood and behaviorSkin: warm and dry, acanthosis nigricans Medication: Medications: Continuous Medications -- 1. Sodium Chloride 0.9% .: 250 mL IntraVenous Scheduled Medications -- 1. Aspirin Chewable: 81 mg Oral Daily2. Atorvastatin: 40 mg Oral Daily3. Carvedilol: 12.5 mg Oral 2 Times a Day4. Citalopram: 20 mg Oral Daily5. Docusate 50 mg - Senna 8.6 m tablet(s) Oral 2 Times a Day6. Fludrocortisone: 0.05 mg Oral 7. Heparin (Repeat Bolus) Injectable: 4000 unit(s) IntraVenous Push Every 9Kavzh6. Hydrocortisone: 10 mg Oral 9. Hydrocortisone: 5 mg Oral 10. Hydrocortisone: 2.5 mg Oral 11. Insulin Glargine (Lantus) Injectable: 25 unit(s) SubCutaneous Every 32Ivrth22. Insulin Lispro (HumaLOG) Injectable: 6 unit(s) SubCutaneous 3 Times aDay Before Meals13. Insulin Lispro Mild Corrective Scale: unit(s) SubCutaneous 3 Times a DayBefore Meals14. Levothyroxine: 150 microgram(s) Oral Daily15. Pantoprazole: 40 mg Oral Daily16. Polyethylene Glycol: 17 gram(s) Oral Daily17. rOPINIRole: 6 mg Oral 18. Sodium Chloride 0.65% Nasal Holbrook: 2 spray(s) Each Nostril 2 Times aDay PRN Medications -- 1. Dextrose 50% in Water Injectable: 25 gram(s) IntraVenous Push Every 15Zsxbtnz4. Glucagon Injectable: 1 mg IntraMuscular Every 15 Minutes Currently Suspended Medications -- 1. Chlorhexidine Gluconate 4% Topical: 1 application(s) Topical Once Recent Lab Results: Results: I have reviewed these laboratory results: Glucose_POCT Trending View [id number]-[id number] 12:46:00 24-Mar-2018 11:46:00 24-Mar-2018 06:54:00 23-Mar-2018 20:50:00 23-Mar-2018 15:44:00 23-Mar-2018 11:37:00 33-Igh-356723:37:00 22-Mar-2018 21:18:00Glucose-RBAT874 H 262 H 217 H 290 H 228 H 226 H 189H 275 H Basic Metabolic Panel 24-Mar-2018 03:30:00 ResultValueGlucose, Serum 358 HNA 134 LK 4.2CL 103Bicarbonate, Serum 21Anion Gap, Serum 14BUN 26 HCREAT 1.24GFR-Non 58 AGFR- 70Calcium, Serum 9.1 Renal Function Panel Trending View [id number] 20:34:00 22-Mar-2018 19:24:00Glucose, Ltchs944 H 226 YRA943 138K4.2 4.8HL809 102Bicarbonate, Serum24 25Anion Gap, Serum14 79MDV02 24 HCREAT1.23 1.53 HGFR-Non Njmibxxk41 A 46 AGFR- Qcixblbx49 56 ACalcium, Serum9.2 9.0Phosphorus, Serum3.9 4.0ALB3.7 3.7 Assessment and Plan:Assessment: Mr. Elkins is a 67 yo WM with no known history of CAD, who has a past medicalhistory of HTN, HLD, T2DM, [facility]'s disease, hypothyroidism, COPD, AKASH onCPAP, prostate ca s/p prostatectomy in 2011, and psoriasis who was [facility]to [facility] service at [facility] from [facility] on 03/18 forCABG eval.Endocrine consulted fr evaluation of [facility] disease and treatment periop Patient was on supra-therapeutic dose of HCT 20-0-20 , fludrocortisone 0.1 ,mgdailyPatient has uncontrolled HTN and uncontrolled BSMost likely tomorrow (03/23) IVC filter placement Recommendations:1. Brigida's Disease-- Fludrocortisone 0.05 mg 4 times weekly ( and friday)-- Continue Hydrocortisone to 10-5-2.5 mg at 9wy-25xj-2kd DAILY as of tomorrow -On the day of the surgery (CABG) please give Hydrocortisone 30 mg by mouthonce at 5 am , check the cortisol level at 7 am , then continue Hydrocortisoneas 25 mg IV q6hrs thereafter as of 8 am. Please keep endo team informed aboutthe date of the surgery please. 2. T2DM-- Make lantus 25 units once daily And Add Lispro 6 units TIDAC-- Continue ISS 2 units for every 50 above 150-- POCT AC and qHs-- Hypoglycemia protocol--Diabetic diet--will follow Please page with questions [phone] Patient seen and examined, plan discussed with Dr Quevedo Signature/Cosignature/Attestat ion:Attending AttestationI saw and evaluated the patient. I personally obtainedthe judge and critical portions of the history and physical exam or wasphysically present for judge and critical portions performed by theresident/fellow. I reviewed the resident/fellows documentation and discussedthe patient with the resident/fellow. I agree with the resident/fellowsmedical decision making as documented in the residents note.I personally evaluated the patient (as noted in the above attestation) [id number] Electronic Signatures:Starr Quevedo) (Signed 28-Mar-2018 09:05)Authored: Signature/Cosignature/Attestat ionCo-Signer: Service, Subjective Data, Objective Data, Assessment and PlanHasmukh Stephenson (Resident)) (Signed 24-Mar-2018 13:56)Authored: Service, Subjective Data, Objective Data, Assessment and Plan Last Updated: 28-Mar-2018 09:05 by Starr Quevedo) Normal [facility] GLUCOSE-POCTon 03-24-2018 Glucose mass conc 240 mg/dL High 74 - 99 [facility] Comment on above: Performed By: #### G BECKY ####[id number] [place] [address] Glucose mass conc 312 mg/dL High 74 - 99 [facility] Comment on above: Performed By: #### G BECKY ####[id number] [place] [address] Glucose mass conc 242 mg/dL High 74 - 99 [facility] Comment on above: Performed By: #### G BECKY ####[id number] [place] [address] Glucose mass conc 262 mg/dL High 74 - 99 [facility] Comment on above: Performed By: #### G BECKY ####[id number] [place] [address] Glucose mass conc 217 mg/dL High 74 - 99 [facility] Comment on above: Performed By: #### G BECKY ####[id number] [place] [address] HEPARIN ASSAY,UFHon 03-24-20 18 HEPARIN ASSAY,UFH 0.4 IU/mL Normal [facility] Comment on above: Result Comment: The therapeutic reference range for UFH may be either 0.3-0.6 IU/mL or 0.3-0.7 IU/mL based on the clinical setting for anticoagulant therapy and the associated nomogram used. For heparin dosing guidelines based on clinical scenario and Heparin Assay results, please refer to local Pharmacy and [facility] Guidelines for Anticoagulation therapy available on the [facility] intranet at:[email or web address]_Guidelines_for_[email or web address].aspx Performed By: #### H AUF ####[id number] [place] [address] HEPARIN ASSAY,UFH 0.3 IU/mL Normal [facility] Comment on above: Result Comment: The therapeutic reference range for UFH may be either 0.3-0.6 IU/mL or 0.3-0.7 IU/mL based on the clinical setting for anticoagulant therapy and the associated nomogram used. For heparin dosing guidelines based on clinical scenario and Heparin Assay results, please refer to local Pharmacy and the [facility] Guidelines for Anticoagulation therapy available on the [facility] intranet at:[email or web address]_[facility] pitals_Guidelines_for_Anticoagu.aspx Performed By: #### H AUF ####[id number] [place] [address] RENAL FUNCTION PANELon 03-24 Albumin mass conc 3.7 g/dL Normal 3.4 - 5.0 [facility] Comment on above: Performed By: #### R ENAL ####[id number] [place] [address] Anion gap 3 molar conc 14 mmol/L Normal 10 - 20 [facility] Comment on above: Performed By: #### R ENAL ####[id number] [place] [address] Calcium mass conc 9.2 mg/dL Normal 8.6 - 10.6 [facility] Comment on above: Performed By: #### R ENAL ####[id number] [place] [address] Chloride molar conc 102 mmol/L Normal 98 - 107 [facility] Comment on above: Performed By: #### R ENAL ####[id number] [place] [address] Creatinine mass conc 1.23 mg/dL Normal 0.50 - 1.30 [facility] Comment on above: Performed By: #### R ENAL ####[id number] [place] [address] GFR- AM. 71 mL/min/1.73m2 Normal >60 [facility] Comment on above: Result Comment: CALC ULATIONS OF ESTIMATED GFR ARE PERFORMED USING THE MDRD STUDY EQUATION FOR THE IDMS-TRACEABLE CREATININE METHODS. CLIN CHEM 2007;53:766-72 Performed By: #### R ENAL ####[id number] [place] [address] GFR-NON AM. 59 mL/min/1.73m2 Abnormal >60 [facility] Comment on above: Performed By: #### R ENAL ####[id number] [place] [address] Glucose mass conc 271 mg/dL High 74 - 99 [facility] Comment on above: Performed By: #### R ENAL ####[id number] [place] [address] HCO3 molar conc (Bld) 24 mmol/L Normal 21 - 32 [facility] Comment on above: Performed By: #### R ENAL ####[id number] [place] [address] Phosphate mass conc 3.9 mg/dL Normal 2.5 - 4.9 [facility] Comment on above: Result Comment: The performance characteristics of phosphorus testing in heparinized plasma have been validated by the individual laboratory site where testing is performed. Testing on heparinized plasma is not approved by the FDA; however, such approval is not necessary. Performed By: #### R ENAL ####[id number] [place] [address] Potassium molar conc 4.2 mmol/L Normal 3.5 - 5.3 [facility] Comment on above: Performed By: #### R ENAL ####[id number] [place] [address] Sodium molar conc 136 mmol/L Normal 136 - 145 [facility] Comment on above: Performed By: #### R ENAL ####[id number] [place] [address] Urea nitrogen mass conc 21 mg/dL Normal 6 - 23 [facility] Comment on above: Performed By: #### R ENAL ####[id number] [place] [address] ABO/RH GROUP TESTon 03-23-20 18 ABO TYPE A Normal [facility] Comment on above: Performed By: #### T SH2 ####[id number] [place] [address] RH TYPE Positive Normal [facility] Comment on above: Performed By: #### T SH2 ####[id number] [place] [address] BENZODIAZEPINES CONF,URINEon 03-23-2018 7-AMINOCLONAZEPAM <5 Normal [facility] Comment on above: Performed By: #### B ENCN ####[facility] [place] [address] ALPHA-HYDROXYALPR AZOLAM <5 Normal [facility] Comment on above: Performed By: #### B ENCN ####[facility] [address] [facility] [place] [address] ALPHA-HYRDOXYMIDA ZOLAM 36 ng/mL Normal [facility] Comment on above: Result Comment: Mida zolam metabolite: consistent with use of a drug containingmidazolam, such as Versed.Performed by [facility],[address] [facility], [facility] [address] znr.Enforta, Esteban Carbajal MD - Lab. Director Performed By: #### B ENCN ####[facility] [address] [facility] [address] ALPRAZOLAM <5 Normal [facility] Comment on above: Performed By: #### B ENCN ####[facility] [address] [facility] [place] [address] CHLORDIAZEPOXIDE <20 Normal [facility] Comment on above: Performed By: #### B ENCN ####[facility] [address] [facility] [place] [address] CLONAZEPAM <5 Normal [facility] Comment on above: Performed By: #### B ENCN ####[facility] [address] [facility] [place] [address] DIAZEPAM <20 Normal [facility] Comment on above: Result Comment: INTE RPRETIVE INFORMATION: Benzodiazepines, Urine, QuantitativeMethodology: Quantitative Liquid Chromatography-Tandem MassSpectrometryPositive cutoff: 20 ng/mL unless specified below:Alprazolam 5 ng/mLAlpha-hydroxyalprazolam 5 ng/mLClonazepam 5 ng/mL7-aminoclonazepam 5 ng/mLFor medical purposes only; not valid for forensic use.Identification of specific drug(s) taken by specimen donor isproblematic due to common metabolites, some of which areprescription drugs themselves. The absence of expected drug(s)and/or drug metabolite(s) may indicate non-compliance,inappropriate timing of specimen collection relative to drugadministration, poor drug absorption, diluted/adulterated urine,or limitations of testing. The concentration value must be greaterthan or equal to the cutoff to be reported as positive.Interpretive questions should be directed to the laboratory.Test developed and characteristics determined by [employer]. See Compliance Statement B: [email or web address] Performed By: #### B ENCN ####[facility] [address] [place] [address] LORAZEPAM <20 Normal [facility] Comment on above: Performed By: #### B ENCN ####[facility] [address] [place] [address] MIDAZOLAM <20 Normal [facility] Comment on above: Performed By: #### B ENCN ####[facility] [address] [place] [address] NORDIAZEPAM <20 Normal [facility] Comment on above: Performed By: #### B ENCN ####[facility] [address] [place] [address] OXAZEPAM <20 Normal [facility] Comment on above: Performed By: #### B ENCN ####[facility] [address] [place] [address] TEMAZEPAM <20 Normal [facility] Comment on above: Performed By: #### B ENCN ####[facility] [address], [place] [address] Daily Progress Note-Yann chavez 03-23-2018 Protein mass conc Service: Cardiology Subjective Data:DON ELKINS is a 67 year old Male who is Hospital Day # 6. Additional Information:s/p IVC Filter placement today, SBP remains elevated 150-160s, BS remainelevated 2-300s - restart Heparin gtt this evening- Plan for CABG next week Objective Data: Objective Information:T [id number]/7593%Da te/Time03/23 11::: 11:00Range(35.8C - 37C ) (69 - 78 ) (17 - 20 ) (121 - 168 )/ (73 - 91 ) (93% -97% )Highest temp of 37 C was recorded at 03/23 11:00 Pain with Activity reported at 03/23 11:00: 0Pain at Rest reported at 03/23 11:00: 0 Godfaam88/5 3:51: Weight in kg (Weight (kg)) 108.811 3:51: Weight in lbs ((lbs)) 239.8 Physical Exam: Constitutional: Resting in bed, NADHead/Neck: No JVDRespiratory/Thorax: CTABCardiovascular: RRR, S1 J3Kmibhthvvycexonp: soft, NT/NDExtremities: No edemaNeurological: alert and oriented f1Fxicdnssowuxk: Appropriate mood and behaviorSkin: psoriasis plaque over elbows and knees; otherwise warm and dry; rightgroin drsg intact Medication: Medications: Continuous Medications --No continuous medications are active Scheduled Medications -- 1. Aspirin Chewable: 81 mg Oral Daily2. Atorvastatin: 40 mg Oral Daily3. Carvedilol: 12.5 mg Oral 2 Times a Day4. Citalopram: 20 mg Oral Daily5. Docusate 50 mg - Senna 8.6 m tablet(s) Oral 2 Times a Day6. Fludrocortisone: 0.05 mg Oral 7. Heparin (Repeat Bolus) Injectable: 4000 unit(s) IntraVenous Push Every 2Lfbpi8. Hydrocortisone: 5 mg Oral 9. Insulin Lispro Mild Corrective Scale: unit(s) SubCutaneous 3 Times a DayBefore Meals10. Levothyroxine: 150 microgram(s) Oral Daily11. Mupirocin 2%: 0.5 application(s) Each Nostril 2 Times a Day12. Pantoprazole: 40 mg Oral Daily13. Polyethylene Glycol: 17 gram(s) Oral Daily14. rOPINIRole: 2 mg Oral 3 Times a Day15. Sodium Chloride 0.65% Nasal [place]brook: 2 spray(s) Each Nostril 2 Times aDay PRN Medications -- 1. Dextrose 50% in Water Injectable: 25 gram(s) IntraVenous Push Every 05Tjwcppo0. Glucagon Injectable: 1 mg IntraMuscular Every 15 Minutes Currently Suspended Medications -- 1. Chlorhexidine Gluconate 4% Topical: 1 application(s) Topical Once2. Heparin 25,000 units/ D5W 250 mL Infusion: 1000 units/hr IntraVenous 3. Hydrocortisone: 10 mg Oral 4. Hydrocortisone: 5 mg Oral 5. Hydrocortisone: 2.5 mg Oral Recent Lab Results: Results: I have reviewed these laboratory results: Glucose_POCT Trending View [id number] 11:37:00 23-Mar-2018 07:37:00 22-Mar-2018 21:18:00Glucose-AEAV192 H 189 H 275 H Heparin assay, UFH Trending View [id number] 02:02:00 22-Mar-2018 19:24:00Heparin assay, UFH0.4 0.2 Complete Blood Count 22-Mar-2018 19:24:00 ResultValueWhite Blood Cell Count 7.3Nucleated Erythrocyte Count 0.0Red Blood Cell Count 4.07 LHGB 12.8 LHCT 38.0 LMCV 93MCHC 33.7PLT 214RDW-CV 12.8 Renal Function Panel 22-Mar-2018 19:24:00 ResultValueGlucose, Serum 226 HNA 138K 4.2CL 102Bicarbonate, Serum 25Anion Gap, Serum 15BUN 24 HCREAT 1.53 HGFR-Non 46 AGFR- 56 ACalcium, Serum 9.0Phosphorus, Serum 4.0ALB 3.7 Radiology Results: Results: Conclusion:CONCLUSIONS: 1. Successful IVC filter insertion. Cardiac Catheterization Lab Procedures [Mar 23 2018 2:06PM] Conclusion:[facility] LAB PVR (Arterial Physiologic) BROOKS [Mar 20 2018 11:27AM] Conclusion:[facility] LAB PVR (Arterial Physiologic) BROOKS [Mar 20 2018 11:14AM] Conclusion:[facility] LAB Pre-op Vessel Vein Mapping [Mar 20 2018 11:08AM] Conclusion:[facility] LAB Arterial Duplex Ultrasound [Mar 20 2018 11:01AM] Assessment and Plan:Assessment:67 yo M with HTN, DLD, T2DM, Addisson's, GERD, prostate ca s/p prostatectomy [id number], hypothyroidism, psoriasis, and most recently diagnosed with a PE andmultivessel CAD transferred to medicine at [facility] from [facility] on03/18 for CABG eval. Multiple PEs- addison. Segmental and subsegmental PE on CT- Repeat TTE --> No Right dilation or strain- 2V CXR --> No radiographic evidence of acute cardiopulmonary process.- Appreciate Pulmonary assistance- c/w Heparin gtt (restart at 1900 this evening)- s/p IVC Filter today- Delay CABG for 1 week T[address]ative plan with Dr. Gaston Friday 03/30-- plan for 3-6 months anticoagulation (1st episode unprovoked PE)- c/s hypercoagulable work up as outpatient and ensure age appropriate cancerscreening complete- PSA <10 Multivessel CAD- 03/19 TTE EF 60-65%, impaired relaxation- EKG without acute ST T wave changes- Hold LAUREN perioperatively- Starting Atorva 40 mg- Switch Metoprolol to Carvedilol for better BP control- Cardiac Cath uploaded- Plan for CABG with Dr. Gaston 03/30 s/p recent root canal- orthopantogram T2DM- Holding home Metformin- SSI and hypoglycemia protocol- A1C 7.9%- BS 183, 308, 276, 275, 189 over past 24 hours- 03/22 Lantus 20 units x1 [facility]'s disease- 03/22 Reduce fludrocortisone to 0.05 mg MWFSun- 03/20 Reduce hydrocortisone to 10mg/5mg/2.5mg- 03/23 While NPO: Hydrocortisone 30mg/10mg/5mg GERD- Continue home PPI HTN- Holding LAUREN- 03/20 Increase Carvedilol to 12.5mg BID- 121/73 - 168/91 over past 24 hours DLD- Atorva 40mg- lipids 155/44/82/141 HypothyroidismTSH 2.51- Continue home levothyroxine TIFFANI- MICHELLE- Adm Creatinine 1.42- Today 1.53 [1.66, 1.38, 1.36] GI ppx: on PPICode status: Full Signature/Cosignature/Attestat ion:Attending Only - Shared Visit with Advanced Practice ProviderThis is a sharedvisit. I have reviewed the Advanced Practice Providers encounter note,approve the Advanced Practice Providers documentation, and provide thefollowing additional information from my personal encounter.Comments/ Additional FindingsPlan on IVC filter today. Appreciate help from Dr. Stapleton and Dr. Ramirez.Restart anticoagulation post procedure. Electronic Signatures:Vito Patino (LOAN SERVICES PROFESSIONAL-REPLANTER) (Signed 23-Mar-2018 15:52)Authored: Service, Subjective Data, Objective Data, Assessment and Plan,Signature/Cosignature/Att estationLeonel Arteaga) (Signed 26-Mar-2018 11:14)Authored: Signature/Cosignature/Attestat ionCo-Signer: Service, Subjective Data, Objective Data, Assessment and Plan,Signature/Cosignature/Att estation Last Updated: 26-Mar-2018 11:14 by Leonel Arteaga) Normal [facility] Daily Progress Note-Endocrin ologyon 03-23-2018 Protein mass conc Service: Endocrinolo gy Subjective Data:DON ELKINS is a 67 year old Male who is Hospital Day # 6. Post IVF procedure today received HCt 30 mg once in ama d 10 mg IVat noon whilein the OR, HDS. Objective Data: Objective Information:T [id number]/7593%Da te/Time03/23 11: 11::: 11:00Range(35.8C - 37C ) (69 - 78 ) (17 - 20 ) (121 - 168 )/ (73 - 91 ) (93% -97% )Highest temp of 37 C was recorded at 03/23 11:00 Pain with Activity reported at 03/23 11:00: 0Pain at Rest reported at 03/23 11:00: 0 Physical Exam: Constitutional: Well developed, awake/alert/oriented x3, no distress, alert andcooperative, Patel facies, central obesity, supraclavicular fat pasEyes: PERRL, EOMI, clear scleraRespiratory/Thorax: Diffuse decrease air entry bilaterallyCardiovascular: S1-S2 regular, no murmursGastrointestinal: Nondistended, soft, non-tender, +BS, no straiePsychological: Appropriate mood and behaviorSkin: warm and dry, acanthosis nigricans Assessment and Plan:Assessment: Mr. Elkins is a 67 yo WM with no known history of CAD, who has a past medicalhistory of HTN, HLD, T2DM, Brigida's disease, hypothyroidism, COPD, AKASH onCPAP, prostate ca s/p prostatectomy in 2011, and psoriasis who was [facility]to [facility] service at [facility] from [facility] on 03/18 forCABG eval.Endocrine consulted fr 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 [facility] Disease-- Fludrocortisone to 0.05 mg 4 times weekly ( and friday)-- Give HCt 5mg today at 5 pm then resume as below tomorrow-- Continue Hydrocortisone to 10-5-2.5 mg at [id number] DAILY as of tomorrow -On the day of the surgery (CABG) please give Hydrocortisone 30 mg by mouthonce at 5 am , check the cortisol level at 7 am , then continue Hydrocortisoneas 25 mg IV q6hrs thereafter as of 8 am. Please keep endo team informed aboutthe date of the surgery please. 2. T2DM-- Resume lantus 20units once daily if PO intake was resumed today-- Continue ISS 2 units for every 50 above 150-- POCT AC and qHs-- Hypoglycemia protocol--Diabetic diet--will follow Please page with questions [phone] Patient seen and examined, plan discussed with Dr Quevedo Signature/Cosignature/Attestat ion:Attending AttestationI saw and evaluated the patient. I personally obtainedthe judge and critical portions of the history and physical exam or wasphysically present for judge and critical portions performed by theresident/fellow. I reviewed the resident/fellows documentation and discussedthe patient with the resident/fellow. I agree with the resident/fellowsmedical decision making as documented in the residents note.I personally evaluated the patient (as noted in the above attestation) [id number] Electronic Signatures:Starr Quevedo) (Signed 28-Mar-2018 09:04)Authored: Signature/Cosignature/Attestat ionCo-Signer: Service, Subjective Data, Objective Data, Assessment and Plan,Signature/Cosignature/Att estationHasmukh Stephenson (Resident)) (Signed 23-Mar-2018 15:54)Authored: Service, Subjective Data, Objective Data, Assessment and Plan,Signature/Cosignature/Att estation Last Updated: 28-Mar-2018 09:04 by Starr Quevedo) Normal [facility] Daily Progress Note-Pulmonol ogyon 03-23-2018 Daily Progress Note-Pulmonology Consult Type: subsequent visit/care Sign Off Recommendations Service: Pulmonology Subjective Data:DNO ELKINS is a 67 year old Male who is Hospital Day # 6. Additional Information:Patient had no acute events overnight and reports he continues to beambulatory. He denies any fevers or difficulty breathing and continues to beanticoagulated on heparin. He has no additional complaints this morning and isoxygenating well on ambient air. Objective Data: Objective Information:T [id number]/7193%Da te/Time03/23 11: 15: 11: 15: 11:00Range(35.8C - 37C ) (67 - 78 ) (17 - 20 ) (125 - 168 )/ (68 - 91 ) (93% -97% )Highest temp of 37 C was recorded at 03/23 11:00 Pain with Activity reported at 03/23 11:00: 0Pain at Rest reported at 03/23 11:00: 0 Physical Exam: Constitutional: awake, alert, comfortable, following commandsRespiratory/Thorax: Speaking full sentences, normal WOB, B/L cracklesCardiovascular: RRR no GRMGastrointestinal: Obese, S/NT/ND/NABSExtremities: Trace B/L LE swellingNeurological: CN 2-12 grossly intact, non-focalPsychological: Normal mood, affectSkin: warm, dry Recent Lab Results: Results: I have reviewed these laboratory results: Complete Blood Count 22-Mar-2018 19:24:00 ResultValueWhite Blood Cell Count 7.3Nucleated Erythrocyte Count 0.0Red Blood Cell Count 4.07 LHGB 12.8 LHCT 38.0 LMCV 93MCHC 33.7PLT 214RDW-CV 12.8 Renal Function Panel 22-Mar-2018 19:24:00 ResultValueGlucose, Serum 226 HNA 138K 4.2CL 102Bicarbonate, Serum 25Anion Gap, Serum 15BUN 24 HCREAT 1.53 HGFR-Non 46 AGFR- 56 ACalcium, Serum 9.0Phosphorus, Serum 4.0ALB 3.7 Radiology Results: Results:Cardiac Catheterization Lab Procedures [Mar 23 2018 2:06PM] Assessment and Plan:Assessment:67 years old male patient with PMHx of former smoker, prostate ca s/pprostatectomy in 2011, multi vessels CAD, Hypertension, hyperlipidemia, DLD,T2DM, Addisons, GERD, hypothyroidism, psoriasis with multivessels coronarydisease with acute pulmonary team for recent PE (03/15/18). Now patient isasymptomatic(denies for chest pain, dizziness, SOB, palpitation), maintainingsaturation on rom air.His PESI score: 107 CT PE: showed addison. Segmental and subsegmental PEEcho: EF 55-60%, impaired relaxation. Normal RV size/function IMPRESSIONS:- Unprovoked addison. Segmental & subsegmental PE. Sub-massive- Multi CAD RECOMMENDATIONS:- Obtain ambulatory oximetry and titrate oxygen to SpO2 > 88%- Continue full anticoagulation with heparin infusion- Recommend for IVC filter placement prior to surgery and ideally removed 4-6weeks post op and/or when surgical risk for bleeding is minimal and therapeuticAC can be restarted- Agree with delaying CABG until 03/30- Repeat images before surgery- Optimization of cardiac medications- continue incentive spirometry as this will be significantly helpful post-opas well Case seen, examined and discussed with Dr. Ungerulmonary medicine will sign offPlease page with questions [phone] Signature/Cosignature/Attestat ion:Attending AttestationI saw and evaluated the patient. I personally obtainedthe judge and critical portions of the history and physical exam or wasphysically present for judge and critical portions performed by theresident/fellow. I reviewed the resident/fellows documentation and discussedthe patient with the resident/fellow. I agree with the resident/fellowsmedical decision making as documented in the residents note.I personally evaluated the patient (as noted in the above attestation) [id number] Electronic Signatures:Angie Fuentes) (Signed 23-Mar-2018 18:13)Authored: Service, Signature/Cosignature/Attestat ionCo-Signer: Service, Subjective Data, Objective Data, Assessment and Plan,Signature/Cosignature/Att estationPrincess Garnica (Fellow)) (Signed 23-Mar-2018 16:18)Authored: Service, Subjective Data, Objective Data, Assessment and Plan,Signature/Cosignature/Att estation Last Updated: 23-Mar-2018 18:13 by Angie Fuentes) Normal [facility] GLUCOSE-POCTon 03-23-2018 Glucose mass conc 290 mg/dL High [address] [place] [address] Comment on above: Performed By: #### G BECKY ####[id number] [place] [address] Glucose mass conc 228 mg/dL High [address] [place] [address] Comment on above: Performed By: #### T SH2 ####[id number] [place] [address] Glucose mass conc 226 mg/dL High [address] [place] [address] Comment on above: Performed By: #### T SH2 ####[id number] [place] [address] Glucose mass conc 189 mg/dL High [address] [place] [address] Comment on above: Performed By: #### T SH2 ####[id number] [place] [address] HEPARIN ASSAY,UFHon 03-23-20 HEPARIN ASSAY,UFH 0.4 IU/mL Normal [facility] Comment on above: Result Comment: The therapeutic reference range for UFH may be either 0.3-0.6 IU/mL or 0.3-0.7 IU/mL based on the clinical setting for anticoagulant therapy and the associated nomogram used. For heparin dosing guidelines based on clinical scenario and Heparin Assay results, please refer to local Pharmacy and the [facility] Guidelines for Anticoagulation therapy available on the [facility] intranet at:[email or web address] Performed By: #### T SH2 ####[id number] [place] [address] OPERATIVE REPORTon 8 OPERATIVE REPORT [facility] [place] [id number] Name: DON ELKINSMRN: [id number]: 1950ncounter Number: [id number] of Service: 03/23/2018Patient Location: [facility] [id number] Type: ISurgeon: Ana King Type: Operative ReportsPREOPERATIVE DIAGNOSIS: Venous thromboembolism.POSTOPERATIVE DIAGNOSIS: Venous thromboembolism.POSTOPERATIVE DIAGNOSIS: Inferior vena cava filter.SURGEON: MAREN KingISTANT(S): Eddie AlaitiANESTHESIA: Local anesthesia with sedation.CONSCIOUS SEDATION TIME: Approximately 30 minutes.IMPLANT: Cook Celect filter.INDICATIONS: Mr. Elkins is a 67-year-old gentleman, who has severe coronary artery disease. He suffered a pulmonary embolism. He requires an inferior vena cava filter prior to coronary artery bypass surgery. He understood the indications, risks, benefits, and alternatives and wished to proceed.DETAILS OF PROCEDURE: After adequate local anesthesia in the right groin, the right femoral vein was accessed via single wall puncture technique using ultrasound guidance. A 5-Jordanian sheath was placed. A wire was placed into the cava. We did cavography first looking at the iliac venous system through the sheath and then using a marker pigtail at the perirenal level. We reviewed the images. We then proceeded with placing a filter. This was done first by dilating the tract over a stiff wire and then placing the long filter sheath up to the level of L2. The filter was brought into position and then deployed without incident. The sheath and catheters were removed, and manual pressure was used for hemostasis.SUPERVISION INTERPRETATION: Initial iliac venous imaging shows a patent iliac venous system. The cava is patent. There is normal renal venous outflow. We then had the filter in place in the appropriate location.Severiano Stapleton MD ESTTT: 03/24/2018 00:30 AM ESTDICTATION NUMBER: [id number] JOB NUMBER: [id number]:Leonel Arteaga MD, [id number] Cheng MD, PhDElectronically Signed by Dr. Severiano Stapleton 04/01/2018 03:04:35 PM Normal [facility] OPIATE CONFIRMATION,URINEon 03-23-2018 6-ACETYLMORPHINE <10 Normal [facility] Comment on above: Result Comment: INTE RPRETIVE INFORMATION: Opiates, Urine, QuantitativeMethodology: Quantitative Liquid Chromatography-Tandem MassSpectrometryPositive cutoff: 20 ng/mL except as specified below6-acetylmorphine 10 ng/mLFor medical purposes only; not valid for forensic use.Identification of specific drug(s) taken by specimen donor isproblematic due to common metabolites, some of which areprescription drugs themselves. The absence of expected drug(s)and/or drug metabolite(s) may indicate non-compliance,inappropriate timing of specimen collection relative to drugadministration, poor drug absorption, diluted/adulterated urine,or limitations of testing. All drug analytes covered are in thenon-glucuronidated (free) forms. The concentration value must begreater than or equal to the cutoff to be reported as positive. Chris small amount of an unexpected drug analyte in the presence ofa large amount of an expected drug analyte may reflectpharmaceutical impurity. Interpretive questions should be directedto the laboratory.Test developed and characteristics determined by [facility]. See Compliance Statement B: [employer].Porch/CS Performed By: #### O PIC2 ####[facility] [id number] [place] [address] CODEINE <20 Normal [facility] Comment on above: Performed By: #### O PIC2 ####[facility] [address] [place] [address] HYDROCODONE <20 Normal [facility] Comment on above: Performed By: #### O PIC2 ####[facility] [id number] [facility] [place] [address] HYDROMORPHONE <20 Normal [facility] Comment on above: Performed By: #### O PIC2 ####[facility] [address] [place] [address] MORPHINE <20 Normal [facility] Comment on above: Performed By: #### O PIC2 ####[facility] [id number] [facility] [address] NORHYDROCODONE <20 Normal [facility] Comment on above: Result Comment: Perf ormed by [facility],[address], [facility] [place] [address] cca.Enforta, Esteban Carbajal MD - Lab. Director Performed By: #### O PIC2 ####[facility] [address] [facility] [place] [address] NOROXYCODONE <20 Normal [facility] Comment on above: Performed By: #### O PIC2 ####[facility] [id number] [facility] [place] [address] NOROXYMORPHONE <20 Normal [facility] Comment on above: Performed By: #### O PIC2 ####[facility] [id number] [facility] [place] [address] OXYCODONE <20 Normal [facility] Comment on above: Performed By: #### O PIC2 ####[facility] [id number] [facility] [place] [address] OXYMORPHONE <20 Normal [facility] Comment on above: Performed By: #### O PIC2 ####[facility] [address] [facility] [address] Preop Checkliston 03-23-2018 Preop Checklist Preop Checklist:Preo p Checklist: Procedure TypeIVC filter NPO [id number] 00:00 ID Band Onyes Allergy Bandno known allergies SCD's Appliedno Denturesnot applicable Prostheticsnot applicable Hearing Aidsnot applicable Valuables Securedleft in patient room Glasses / Contactsleft in patient room Cardiovascular Assessment: Apicalregular Radial Pulsespalpable Pedal Pulsespalpable Extremitieswarm Respiratory Assessment: Respirationsregular Air Exchangeequal Breath Soundsclear Neurological Assessment: Level of Consciousnessalert, oriented Mobilitymoves all extremities Able to Express Selfyes Age Appropriateyes Emotional Statuscalm Language / Communication: Language / CommunicationEnglish Electronic Signatures:Matt Zapien) (Signed 23-Mar-2018 06:11)Authored: Preop Checklist Last Updated: 23-Mar-2018 06:11 by Matt Zapien (RN) Normal [facility] RENAL FUNCTION PANELon 03-23 Albumin mass conc 3.7 g/dL Normal 3.4 - 5.0 [facility] Comment on above: Performed By: #### T SH2 ####[id number] [place] [address] Anion gap 3 molar conc 15 mmol/L Normal 10 - 20 [facility] Comment on above: Performed By: #### T SH2 ####[id number] [place] [address] Calcium mass conc 9.0 mg/dL Normal 8.6 - 10.6 [facility] Comment on above: Performed By: #### T SH2 ####[id number] [place] [address] Chloride molar conc 102 mmol/L Normal 98 - 107 [facility] Comment on above: Performed By: #### T SH2 ####[id number] [place] [address] Creatinine mass conc 1.53 mg/dL High 0.50 - 1.30 [facility] Comment on above: Performed By: #### T SH2 ####[id number] [place] [address] GFR- AM. 56 mL/min/1.73m2 Abnormal >60 [facility] Comment on above: Result Comment: CALC ULATIONS OF ESTIMATED GFR ARE PERFORMED USING THE MDRD STUDY EQUATION FOR THE IDMS-TRACEABLE CREATININE METHODS. CLIN CHEM 2007;53:766-72 Performed By: #### T SH2 ####[id number] [place] [address] GFR-NON AM. 46 mL/min/1.73m2 Abnormal >60 [facility] Comment on above: Performed By: #### T SH2 ####[id number] [place] [address] Glucose mass conc 226 mg/dL High 74 - 99 [facility] Comment on above: Performed By: #### T SH2 ####[id number] [place] [address] HCO3 molar conc (Bld) 25 mmol/L Normal 21 - 32 [facility] Comment on above: Performed By: #### T SH2 ####[id number] [place] [address] Phosphate mass conc 4.0 mg/dL Normal 2.5 - 4.9 [facility] Comment on above: Result Comment: The performance characteristics of phosphorus testing in heparinized plasma have been validated by the individual laboratory site where testing is performed. Testing on heparinized plasma is not approved by the FDA; however, such approval is not necessary. Performed By: #### T SH2 ####[id number] [place] [address] Potassium molar conc 4.2 mmol/L Normal 3.5 - 5.3 [facility] Comment on above: Performed By: #### T SH2 ####[id number] [place] [address] Sodium molar conc 138 mmol/L Normal 136 - 145 [facility] Comment on above: Performed By: #### T SH2 ####[id number] [place] [address] Urea nitrogen mass conc 24 mg/dL High 6 - 23 [facility] Center Comment on above: Performed By: #### T SH2 ####[id number] [place] [address] CBCon 03-22-2018 Erythrocyte distribution width Auto Ratio (RBC) 12.8 % Normal 11.5 - 14.5 [facility] Comment on above: Performed By: #### L IPID ####[id number] [place] [address] Hematocrit Auto Volume Fraction (Bld) 38.0 % Low 41.0 - 52.0 [facility] Comment on above: Performed By: #### L IPID ####[id number] [place] [address] Hemoglobin mass conc (Bld) 12.8 g/dL Low 13.5 - 17.5 [facility] Comment on above: Performed By: #### L IPID ####[id number] [place] [address] MCHC Auto mass conc (RBC) 33.7 g/dL Normal 32.0 - 36.0 [facility] Comment on above: Performed By: #### L IPID ####[id number] [place] [address] MCV Auto Entitic volume (RBC) 93 fL Normal 80 - 100 [facility] Comment on above: Performed By: #### L IPID ####[id number] [place] [address] Nucleated RBC/100 WBC Ratio (Bld) 0.0 /100 WBC Normal 0.0-0.0 [facility] Comment on above: Performed By: #### L IPID ####[id number] [place] [address] Platelets Auto #/vol (Bld) 214 10*3/uL Normal 150 - 450 [facility] Comment on above: Performed By: #### L IPID ####[id number] [place] [address] RBC Auto #/vol (Bld) 4.07 x10E12/L Low 4.50 - 5.90 [facility] Comment on above: Performed By: #### L IPID ####[id number] [place] [address] WBC Auto #/vol (Bld) 7.3 10*3/uL Normal 4.4 - 11.3 [facility] Comment on above: Performed By: #### L IPID ####[id number] [place] [address] Erythrocyte distribution width Auto Ratio (RBC) 12.9 % Normal 11.5 - 14.5 [facility] Comment on above: Performed By: #### R ENAL ####[id number] [place] [address] Hematocrit Auto Volume Fraction (Bld) 40.8 % Low 41.0 - 52.0 [facility] Comment on above: Performed By: #### R ENAL ####[id number] [place] [address] Hemoglobin mass conc (Bld) 13.5 g/dL Normal 13.5 - 17.5 [facility] Comment on above: Performed By: #### R ENAL ####[id number] [place] [address] MCHC Auto mass conc (RBC) 33.1 g/dL Normal 32.0 - 36.0 [facility] Comment on above: Performed By: #### R ENAL ####[id number] [place] [address] MCV Auto Entitic volume (RBC) 94 fL Normal 80 - 100 [facility] Comment on above: Performed By: #### R ENAL ####[id number] [place] [address] Nucleated RBC/100 WBC Ratio (Bld) 0.0 /100 WBC Normal 0.0-0.0 [facility] Comment on above: Performed By: #### R ENAL ####[id number] [place] [address] Platelets Auto #/vol (Bld) 241 10*3/uL Normal 150 - 450 [facility] Comment on above: Performed By: #### R ENAL ####[id number] [place] [address] RBC Auto #/vol (Bld) 4.35 x10E12/L Low 4.50 - 5.90 [facility] Comment on above: Performed By: #### R ENAL ####[id number] [place] [address] WBC Auto #/vol (Bld) 9.4 10*3/uL Normal 4.4 - 11.3 [facility] Comment on above: Performed By: #### R ENAL ####[id number] [place] [address] Daily Progress Note-Cardiosandra chavez 03-22-2018 Protein mass conc Service: Cardiology Subjective Data:DON ELKINS is a 67 year old Male who is Hospital Day # 5. Additional Information:Creatinine up to 1.66 etiology, BS 200s over past 24 hours - NPO after MN for IVC filter tomorrow- Hold Heparin starting at 0600- Glargine insulin 20 units x1 today- Adjust Hydrocortisone per Endo recs Objective Data: Objective Information:T [id number]/8895% Date/Time03/22 12: 12: 12: 12: 12:00Range(36C - 36.4C ) (73 - 83 ) (17 - 18 ) (120 - 188 )/ (57 - 99 ) (93% -99% ) Pain with Activity reported at 03/21 15:25: 0Pain at Rest reported at 03/21 15:25: 0 Hnwkbfa35/4 3:13: Weight in kg (Weight (kg)) 108.6105/22 3:13: Weight in lbs ((lbs)) 239.4 Physical Exam: Constitutional: Resting in bed, NADHead/Neck: No JVDRespiratory/Thorax: CTABCardiovascular: RRR, S1 A6Ytmeimyxmirjxsgn: soft, NT/NDExtremities: No edemaNeurological: alert and oriented n7Ghxvvumlemjex: Appropriate mood and behaviorSkin: psoriasis plaque over elbows and knees; otherwise warm and dry Medication: Medications: Continuous Medications -- 1. Heparin 25,000 units/ D5W 250 mL Infusion: 1000 units/hr IntraVenous Scheduled Medications -- 1. Aspirin Chewable: 81 mg Oral Daily2. Atorvastatin: 40 mg Oral Daily3. Carvedilol: 12.5 mg Oral 2 Times a Day4. Citalopram: 20 mg Oral Daily5. Docusate 50 mg - Senna 8.6 m tablet(s) Oral 2 Times a Day6. Fludrocortisone: 0.05 mg Oral 7. Heparin (Repeat Bolus) Injectable: 4000 unit(s) IntraVenous Push Every 3Pbgwz4. Hydrocortisone: 2.5 mg Oral 9. Hydrocortisone: 30 mg Oral 10. Hydrocortisone: 10 mg Oral 11. Hydrocortisone: 5 mg Oral 12. Insulin Lispro Mild Corrective Scale: unit(s) SubCutaneous 3 Times a DayBefore Meals13. Levothyroxine: 150 microgram(s) Oral Daily14. Mupirocin 2%: 0.5 application(s) Each Nostril 2 Times a Day15. Pantoprazole: 40 mg Oral Daily16. Polyethylene Glycol: 17 gram(s) Oral Daily17. rOPINIRole: 2 mg Oral 3 Times a Day18. Sodium Chloride 0.65% Nasal Holbrook: 2 spray(s) Each Nostril 2 Times aDay PRN Medications -- 1. Dextrose 50% in Water Injectable: 25 gram(s) IntraVenous Push Every 01Nvsflny2. Glucagon Injectable: 1 mg IntraMuscular Every 15 Minutes Currently Suspended Medications -- 1. Chlorhexidine Gluconate 0.12% Mucous Mem: 15 mL Topical Morning andEvening2. Hydrocortisone: 10 mg Oral 3. Hydrocortisone: 5 mg Oral Recent Lab Results: Results: I have reviewed these laboratory results: Glucose_POCT Trending View [id number] 11:44:00 22-Mar-2018 07:52:00 21-Mar-2018 21:58:00Glucose-TQER126 H 183 H 220 H Complete Blood Count 21-Mar-2018 19:42:00 ResultValueWhite Blood Cell Count 9.4Nucleated Erythrocyte Count 0.0Red Blood Cell Count 4.35 LHGB 13.5HCT 40.8 LMCV 94MCHC 33.1PLT 241RDW-CV 12.9 Renal Function Panel 21-Mar-2018 19:42:00 ResultValueGlucose, Serum 257 HNA 139K 4.5CL 102Bicarbonate, Serum 24Anion Gap, Serum 18BUN 29 HCREAT 1.66 HGFR-Non 41 AGFR- 50 ACalcium, Serum 9.2Phosphorus, Serum 4.0ALB 3.8 Prostate Specific Antigen 21-Mar-2018 19:42:00 ResultValueProstate Specific Antigen <0.10 Heparin assay, UFH 21-Mar-2018 19:41:00 ResultValueHeparin assay, UFH 0.3 Radiology Results: Results: Conclusion:VASC LAB PVR (Arterial Physiologic) BROOKS [Mar 20 2018 11:27AM] Conclusion:VASC LAB PVR (Arterial Physiologic) BROOKS [Mar 20 2018 11:14AM] Conclusion:VASC LAB Pre-op Vessel Vein Mapping [Mar 20 2018 11:08AM] Conclusion:[facility] LAB Arterial Duplex Ultrasound [Mar 20 2018 11:01AM] Conclusion:VASC LAB Carotid Artery Duplex Ultrasound [Mar 20 2018 10:56AM] Impression: Suspected periapical abscess right maxillary premolar. Xray Orthopantogram [Mar 19 2018 3:30PM] Conclusion:CONCLUSIONS: 1. The left ventricular systolic function is normal with a 60-65% estimatedejection fraction. 2. Spectral Doppler shows an impaired relaxation pattern of left ventriculardiastolic filling.QUANTITATIVE DATA SUMMARY:2D MEASUREMENTS: Normal Ranges:LAs: 3.10 cm (2.7-4.0cm)IVSd: 1.84 cm (0.6-1.1cm)LVPWd: 0.96 cm (0.6-1.1cm)LVIDd: 3.51 cm (3.9-5.9cm)LVIDs: 2.33 cmLV Mass Index: 79.3 g/m2LV % FS 33.6 %LA VOLUME: Normal Ranges:LA Vol A4C: 42.8 ml (22+/-6mL/m2)LA Vol A2C: 36.3 mlLA Vol BP: 44.5 mlLA Vol Index A4C: 19.6ml/m2LA Vol Index A2C: 16.6 ml/m2LA Vol Index BP: 20.4 ml/m2LA Area A4C: 17.4cm2LA Area A2C: 14.2 cm2LA [place] A4C: 6.0 cmLA [place] A2C: 4.7 cmLA Volume Index: 15.2 ml/m2RA VOLUME BY A/L METHOD: Normal Ranges:RA Area A4C: 12.8 vw9P-JOPV MEASUREMENTS: Normal Ranges:Ao Root: 2.90 cm (2.0-3.7cm)LAs: 3.80 cm (2.7-4.0cm)AORTA MEASUREMENTS: Normal Ranges:Ao Sinus, d: 3.45 cm (2.1-3.5cm)Ao STJ, d: 2.85 cm (1.7-3.4cm)Asc Ao, d: 3.40 cm (2.1-3.4cm)LV SYSTOLIC FUNCTIONBY 2D PLANIMETRY (MOD): Normal Ranges:EF-A4C View: 59.9 % (>55%)EF-A2C View: 66.3 %EF-Biplane: 63.4 %LV DIASTOLIC FUNCTION: Normal Ranges:MV Peak E: 0.60 m/s (0.7-1.2 m/s)MV Peak A: 0.71 m/s (0.42-0.7 m/s)E/A Ratio: 0.84 (1.0-2.2)MV e' 0.05 m/s (>8.0)MV lateral e' 0.05 m/sMV medial e' 0.05 m/sMV A Dur: 148.00 msecE/e' Ratio: 11.92 (<8.0)a' 0.14 m/sMV DT: 261 msec (150-240 msec)PulmV Sys Jeremiah: 51.80 cm/sPulmV Pablo Jeremiah: 29.80 cm/sPulmV S/D Jeremiah: 1.70PulmV A Revs Jeremiah: 31.50 cm/sPulmV A Revs Dur: 116.00 msecMITRAL VALVE: NormalRanges:MV DT: 261 msec (150-240msec)AORTIC VALVE: Normal Ranges:AoV Vmax: 1.02 m/s (<1.7m/s)AoV Peak P.2 mmHg (<20mmHg)LVOT Max Jeremiah: 0.87 m/s (<1.1m/s)LVOT VTI: 17.70 cmRIGHT VENTRICLE:RV 1 3.22 cmRV 2 2.33 cmRV 3 7.96 cmTAPSE: 19.1 mmRV s' 0.13 m/sTRICUSPID VALVE/RVSP: Normal Ranges:IVC Diam: 2.03 cmPULMONIC VALVE: Normal Ranges:PV Max Jeremiah: 1.0 m/s (0.6-0.9m/s)PV Max P.2 mmHgPulmonary Veins:PulmV A Revs Dur: 116.00 msecPulmV A Revs Jeremiah: 31.50 cm/sPulmV Pablo Jeremiah: 29.80 cm/sPulmV S/D Jeremiah: 1.70PulmV Sys Jeremiah: 51.80 cm/s Echocardiogram [Mar 19 2018 2:30PM] Impression: 1. No radiographic evidence of acute cardiopulmonary process. Xray Chest 2 View PA + Lateral [Mar 19 2018 2:19PM] Impression: 1. No radiographic evidence of acute cardiopulmonary process. Xray Chest 1 View [Mar 19 2018 9:20AM] Assessment and Plan:Assessment:67 yo M with HTN, DLD, T2DM, Addisson's, GERD, prostate ca s/p prostatectomy [id number], hypothyroidism, psoriasis, and most recently diagnosed with a PE andmultivessel CAD transferred to medicine at [facility] from [facility] on03/18 for CABG eval. Multiple PEs- addison. Segmental and subsegmental PE on CT- Repeat TTE --> No Right dilation or strain- 2V CXR --> No radiographic evidence of acute cardiopulmonary process.- Appreciate Pulmonary assistance- c/w Heparin gtt- Plan for IVC Filter Friday in IR- Delay CABG for 1 week T[address]ative plan with Dr. Gaston Friday 03/30-- plan for 3-6 months anticoagulation (1st episode unprovoked PE)- c/s hypercoagulable work up as outpatient and ensure age appropriate cancerscreening complete- PSA <10 Multivessel CAD- 03/19 TTE EF 60-65%, impaired relaxation- EKG without acute ST T wave changes- Hold LAUREN perioperatively- Starting Atorva 40 mg- Switch Metoprolol to Carvedilol for better BP control- Cardiac Cath uploaded- Plan for CABG with Dr. Gaston 03/30 s/p recent root canal- orthopantogram T2DM- Holding home Metformin- SSI and hypoglycemia protocol- A1C 7.9%- BS 192, 255, 269, 220- Lantus 20 units x1 Brigida's disease- Reduce fludrocortisone to 0.05 mg MWFSun- 2 Reduce hydrocortisone to 10mg/5mg/2.5mg GERD- Continue home PPI HTN- Holding LAUREN- 11/2 Increase Carvedilol to 12.5mg BID- 120/57 - 167/93 over past 24 hours DLD- Atorva 40mg- lipids 155/44/82/141 HypothyroidismTSH 2.51- Continue home levothyroxine TIFFANI- MICHELLE- Adm Creatinine 1.42- Today 1.66 [1.38, 1.36] GI ppx: on PPICode status: Full Electronic Signatures:Vito Patino ([employer] PROFESSIONAL-REPLANTER) (Signed 22-Mar-2018 14:13)Authored: Service, Subjective Data, Objective Data, Assessment and Plan,Signature/Cosignature/Att estationSPatience decker) (Signed 22-Mar-2018 15:25)Co-Signer: Service, Subjective Data, Objective Data, Assessment and Plan,Signature/Cosignature/Att estation Last Updated: 22-Mar-2018 15:25 by Patience Sow) Normal [facility] Daily Progress Note-Endocrin ologyon 03-22-2018 Protein mass conc Consult Type: subseq uent visit/care Service: Endocrinology Subjective Data:DON ELKINS is a 67 year old Male who is Hospital Day # 5. No acute events.IVC filter placement tomorrow. Objective Data: Objective Information:T UOCKFzQ7Lzjph62.00995711/8895% Date/Time03/22 12: 12: 12: 12: 12:00Range(36C - 36.4C ) (73 - 83 ) (17 - 18 ) (120 - 188 )/ (57 - 99 ) (93% -99% ) Pain with Activity reported at 03/21 15:25: 0Pain at Rest reported at 11 15:25: 0 Physical Exam: Constitutional: Well developed, awake/alert/oriented x3, no distress, alert andcooperative, Patel facies, central obesity, supraclavicular fat pasEyes: PERRL, EOMI, clear scleraRespiratory/Thorax: Diffuse decrease air entry bilaterallyCardiovascular: S1-S2 regular, no murmursGastrointestinal: Nondistended, soft, non-tender, +BS, no straiePsychological: Appropriate mood and behaviorSkin: warm and dry, acanthosis nigricans Medication: Medications: Continuous Medications -- 1. Heparin 25,000 units/ D5W 250 mL Infusion: 1000 units/hr IntraVenous Scheduled Medications -- 1. Aspirin Chewable: 81 mg Oral Daily2. Atorvastatin: 40 mg Oral Daily3. Carvedilol: 12.5 mg Oral 2 Times a Day4. Citalopram: 20 mg Oral Daily5. Docusate 50 mg - Senna 8.6 m tablet(s) Oral 2 Times a Day6. Fludrocortisone: 0.05 mg Oral 7. Heparin (Repeat Bolus) Injectable: 4000 unit(s) IntraVenous Push Every 8Ocwde7. Hydrocortisone: 10 mg Oral 9. Hydrocortisone: 5 mg Oral 10. Hydrocortisone: 2.5 mg Oral 11. Insulin Glargine (Lantus) Injectable: 20 unit(s) SubCutaneous Once12. Insulin Lispro Mild Corrective Scale: unit(s) SubCutaneous 3 Times a DayBefore Meals13. Levothyroxine: 150 microgram(s) Oral Daily14. Mupirocin 2%: 0.5 application(s) Each Nostril 2 Times a Day15. Pantoprazole: 40 mg Oral Daily16. Polyethylene Glycol: 17 gram(s) Oral Daily17. rOPINIRole: 2 mg Oral 3 Times a Day18. Sodium Chloride 0.65% Nasal Holbrook: 2 spray(s) Each Nostril 2 Times aDay PRN Medications -- 1. Dextrose 50% in Water Injectable: 25 gram(s) IntraVenous Push Every 27Apqyeqs5. Glucagon Injectable: 1 mg IntraMuscular Every 15 Minutes Currently Suspended Medications -- 1. Chlorhexidine Gluconate 0.12% Mucous Mem: 15 mL Topical Morning andEvening Recent Lab Results: Results: I have reviewed these laboratory results: Glucose_POCT Trending View [id number] 11:44:00 22-Mar-2018 07:52:00 21-Mar-2018 21:58:00 21-Mar-2018 15:52:00 21-Mar-2018 12:06:00 21-Mar-2018 08:37:00Glucose-ZBKL660 H 183 H 220 H 269 H 255 H 192 H Complete Blood Count 21-Mar-2018 19:42:00 ResultValueWhite Blood Cell Count 9.4Nucleated Erythrocyte Count 0.0Red Blood Cell Count 4.35 LHGB 13.5HCT 40.8 LMCV 94MCHC 33.1PLT 241RDW-CV 12.9 Renal Function Panel 21-Mar-2018 19:42:00 ResultValueGlucose, Serum 257 HNA 139K 4.5CL 102Bicarbonate, Serum 24Anion Gap, Serum 18BUN 29 HCREAT 1.66 HGFR-Non 41 AGFR- 50 ACalcium, Serum 9.2Phosphorus, Serum 4.0ALB 3.8 Heparin assay, UFH 21-Mar-2018 19:41:00 ResultValueHeparin assay, UFH 0.3 Assessment and Plan:Assessment: Mr. Elkins is a 67 yo WM with no known history of CAD, who has a past medicalhistory of HTN, HLD, T2DM, [facility]'s disease, hypothyroidism, COPD, AKASH onCPAP, prostate ca s/p prostatectomy in 2011, and psoriasis who was [facility]to [facility] service at [facility] from [facility] on 03/18 forWALTER marshall.Endocrine consulted fr evaluation of [facility] disease and treatment periop Patient was on supra-therapeutic dose of HCT 20-0-20 , fludrocortisone 0.1 ,mgdailyPatient has uncontrolled HTN and uncontrolled BSMost likely tomorrow (03/23) IVC filter placement Recommendations:1. [facility]'s Disease-- Decrease Fludrocortisone to 0.05 mg 4 times weekly ( and friday)-- Continue Hydrocortisone to 10-5-2.5 mg at [id number] DAILY-- On day of IVC filter placement, please give hydrocortisone 30mg PO in themorning, 10mg at noon and 5mg at 5pm and keep fludrocortisone 0.05mg pleasemake sure that patient receive his HC and fludrocortisone before his procedure-On the day of the surgery please give Hydrocortisone 30 mg by mouth once at 5am , check the cortisol level at 7 am , then continue Hydrocortisone as 25 mgIV q6hrs thereafter as of 8 am. Please keep endo team informed about the dateof the surgery please. 2. T2DM-- Give lantus 20units once now-- Continue ISS 2 units for every 50 above 150-- POCT AC and qHs-- Hypoglycemia protocol--Diabetic diet -will follow Please page with questions [phone] Patient seen and examined, plan discussed with Dr Quevedo Signature/Cosignature/Attestat ion:Attending AttestationI saw and evaluated the patient. I personally obtainedthe judge and critical portions of the history and physical exam or wasphysically present for judge and critical portions performed by theresident/fellow. I reviewed the resident/fellows documentation and discussedthe patient with the resident/fellow. I agree with the resident/fellowsmedical decision making as documented in the residents note.I personally evaluated the patient (as noted in the above attestation) [id number] Electronic Signatures:Starr Quevedo) (Signed 23-Mar-2018 12:38)Authored: Signature/Cosignature/Attestat ionCo-Signer: Service, Subjective Data, Objective Data, Assessment and Plan,Signature/Cosignature/Att estationJob Torres (Resident)) (Signed 22-Mar-2018 12:13)Authored: Service, Subjective Data, Objective Data, Assessment and Plan,Signature/Cosignature/Att estation Last Updated: 23-Mar-2018 12:38 by Starr Quevedo) Normal [facility] GLUCOSE-POCTon 03-22-2018 Glucose mass conc 275 mg/dL High 74 - 99 [facility] Comment on above: Performed By: #### L IPID ####[id number] [place] [address] Glucose mass conc 276 mg/dL High 74 - 99 [facility] Comment on above: Performed By: #### L IPID ####[id number] [place] [address] Glucose mass conc 308 mg/dL High 74 - 99 [facility] Comment on above: Performed By: #### L IPID ####[id number] [place] [address] Glucose mass conc 183 mg/dL High 74 - 99 [facility] Comment on above: Performed By: #### L IPID ####[id number] [place] [address] HEPARIN ASSAY,UFHon 03-22-20 18 HEPARIN ASSAY,UFH 0.2 IU/mL Normal [facility] Comment on above: Result Comment: The therapeutic reference range for UFH may be either 0.3-0.6 IU/mL or 0.3-0.7 IU/mL based on the clinical setting for anticoagulant therapy and the associated nomogram used. For heparin dosing guidelines based on clinical scenario and Heparin Assay results, please refer to local Pharmacy and the [facility] Guidelines for Anticoagulation therapy available on the [facility] intranet at:[email or web address] Performed By: #### L IPID ####[id number] [place] [address] PROSTATE SPECIFIC AGon 03-22 Prostate specific Ag mass conc ng/mL Normal 0.00 - 4.00 [facility] Comment on above: Result Comment: The FDA requires that the method used for PSAassay be reported to the physician. Valuesobtained with different assay methods must notbe used interchangeably. uses the ADVIACentaur PSA method, which is a sandwichimmunoassay using chemiluminescence forquantitation. The assay is approved formeasurement of prostate-specific antigen (PSA)in serum and may be used in conjunction witha digital rectal examination in men 50 yearsand older as an aid in detection of prostatecancer. Performed By: #### L IPID ####[id number] [place] [address] RENAL FUNCTION PANELon 03-22 Albumin mass conc 3.8 g/dL Normal 3.4 - 5.0 [facility] Comment on above: Performed By: #### R ENAL ####[id number] [place] [address] Anion gap 3 molar conc 18 mmol/L Normal 10 - 20 [facility] Comment on above: Performed By: #### R ENAL ####[id number] [place] [address] Calcium mass conc 9.2 mg/dL Normal 8.6 - 10.6 [facility] Comment on above: Performed By: #### R ENAL ####[id number] [place] [address] Chloride molar conc 102 mmol/L Normal 98 - 107 [facility] Comment on above: Performed By: #### R ENAL ####[id number] [place] [address] Creatinine mass conc 1.66 mg/dL High 0.50 - 1.30 [facility] Comment on above: Performed By: #### R ENAL ####[id number] [place] [address] GFR- AM. 50 mL/min/1.73m2 Abnormal >60 [facility] Comment on above: Result Comment: CALC ULATIONS OF ESTIMATED GFR ARE PERFORMED USING THE MDRD STUDY EQUATION FOR THE IDMS-TRACEABLE CREATININE METHODS. CLIN CHEM 2007;53:766-72 Performed By: #### R ENAL ####[id number] [place] [address] GFR-NON AM. 41 mL/min/1.73m2 Abnormal >60 [facility] Comment on above: Performed By: #### R ENAL ####[id number] [place] [address] Glucose mass conc 257 mg/dL High 74 - 99 [facility] Comment on above: Performed By: #### R ENAL ####[id number] [place] [address] HCO3 molar conc (Bld) 24 mmol/L Normal 21 - 32 [facility] Comment on above: Performed By: #### R ENAL ####[id number] [place] [address] Phosphate mass conc 4.0 mg/dL Normal 2.5 - 4.9 [facility] Comment on above: Result Comment: The performance characteristics of phosphorus testing in heparinized plasma have been validated by the individual laboratory site where testing is performed. Testing on heparinized plasma is not approved by the FDA; however, such approval is not necessary. Performed By: #### R ENAL ####[id number] [place] [address] Potassium molar conc 4.5 mmol/L Normal 3.5 - 5.3 [facility] Comment on above: Performed By: #### R ENAL ####[id number] [place] [address] Sodium molar conc 139 mmol/L Normal 136 - 145 [facility] Comment on above: Performed By: #### R ENAL ####[id number] [place] [address] Urea nitrogen mass conc 29 mg/dL High 6 - 23 [facility] Comment on above: Performed By: #### R ENAL ####[id number] [place] [address] TYPE + SCREENon 03-22-2018 ABO TYPE A Normal [facility] Comment on above: Performed By: #### L IPID ####[id number] [place] [address] RH TYPE Positive Normal [facility] Comment on above: Performed By: #### L IPID ####[id number] [place] [address] Daily Progress Note-Cardiolo gyon 03-21-2018 Protein mass conc Service: Cardiology Subjective Data:DON ELKINS is a 67 year old Male who is Hospital Day # 4. Additional Information:[place] been [place] ambulating [place], denies CP, SOB, remains on Heparin gtt. - Plan for IVC filter placement Friday- will adjust hydrocortisone while NPO- c/w Heparin gtt until next week- Tentative plan for CABG with Dr. Gaston 03/30- Advised to follow up with age appropriate cancer screening (colonoscopy)- plan for 3-6 months anticoagulation (1st episode unprovoked PE) Objective Data: Objective Information:T [id number]/7997%Da te/Time03/21 12:00105/21 12: 12: 12: 12:00Range(36C - 36.5C ) (78 - 90 ) (18 - 21 ) (134 - 171 )/ (73 - 102 ) (96%- 97% ) Pain with Activity reported at 03/21 8:30: 0Pain at Rest reported at 03/21 8:30: 0 Yvogdmn04/3 4:19: Weight in kg (Weight (kg)) 108.711 4:19: Weight in lbs ((lbs)) 239.6 Physical Exam: Constitutional: Resting in bed, NADHead/Neck: No JVDRespiratory/Thorax: CTABCardiovascular: RRR, S1 L1Tvriazfkdnunqaeq: soft, NT/NDExtremities: No edemaNeurological: alert and oriented k1Wiigpeeyrpqkk: Appropriate mood and behaviorSkin: psoriasis plaque over elbows and knees; otherwise warm and dry Medication: Medications: Continuous Medications -- 1. Heparin 25,000 units/ D5W 250 mL Infusion: 1000 units/hr IntraVenous Scheduled Medications -- 1. Aspirin Chewable: 81 mg Oral Daily2. Atorvastatin: 40 mg Oral Daily3. Carvedilol: 12.5 mg Oral 2 Times a Day4. Citalopram: 20 mg Oral Daily5. Docusate 50 mg - Senna 8.6 m tablet(s) Oral 2 Times a Day6. Fludrocortisone: 0.05 mg Oral Daily7. Heparin (Repeat Bolus) Injectable: 4000 unit(s) IntraVenous Push Every 0Psggc0. Hydrocortisone: 10 mg Oral 9. Hydrocortisone: 5 mg Oral 10. Hydrocortisone: 2.5 mg Oral 11. Insulin Lispro Mild Corrective Scale: unit(s) SubCutaneous 3 Times a DayBefore Meals12. Levothyroxine: 150 microgram(s) Oral Daily13. Mupirocin 2%: 0.5 application(s) Each Nostril 2 Times a Day14. Pantoprazole: 40 mg Oral Daily15. Polyethylene Glycol: 17 gram(s) Oral Daily16. rOPINIRole: 2 mg Oral 3 Times a Day17. Sodium Chloride 0.65% Nasal [place]: 2 spray(s) Each Nostril 2 Times aDay PRN Medications -- 1. Dextrose 50% in Water Injectable: 25 gram(s) IntraVenous Push Every 17Bikmqor4. Glucagon Injectable: 1 mg IntraMuscular Every 15 Minutes Recent Lab Results: Results: I have reviewed these laboratory results: Glucose_POCT Trending View [id number] 12:06:00 21-Mar-2018 08:37:00Glucose-HFJA750 H 192 H Heparin assay, UFH Trending View [id number] 07:10:00 21-Mar-2018 03:30:00 20-Mar-2018 22:05:00Heparin assay, UFH0.4 0.4 0.2 Complete Blood Count 20-Mar-2018 19:09:00 ResultValueWhite Blood Cell Count 11.0Nucleated Erythrocyte Count 0.0Red Blood Cell Count 4.48 LHGB 14.0HCT 40.8 LMCV 91MCHC 34.3PLT 252RDW-CV 13.1 Renal Function Panel 20-Mar-2018 19:09:00 ResultValueGlucose, Serum 201 HNA 138K 4.0CL 102Bicarbonate, Serum 24Anion Gap, Serum 16BUN 22CREAT 1.38 HGFR-Non 51 AGFR- 62Calcium, Serum 9.0Phosphorus, Serum 4.3ALB 3.9 Radiology Results: Results: Conclusion:VASC LAB PVR (Arterial Physiologic) BROOKS [Mar 20 2018 11:27AM] Conclusion:VASC LAB PVR (Arterial Physiologic) BROOKS [Mar 20 2018 11:14AM] Conclusion:[facility]ASC LAB Pre-op Vessel Vein Mapping [Mar 20 2018 11:08AM] Conclusion:[facility] LAB Arterial Duplex Ultrasound [Mar 20 2018 11:01AM] Conclusion:VASC LAB Carotid Artery Duplex Ultrasound [Mar 20 2018 10:56AM] Impression: Suspected periapical abscess right maxillary premolar. Xray Orthopantogram [Mar 19 2018 3:30PM] Conclusion:CONCLUSIONS: 1. The left ventricular systolic function is normal with a 60-65% estimatedejection fraction. 2. Spectral Doppler shows an impaired relaxation pattern of left ventriculardiastolic filling.QUANTITATIVE DATA SUMMARY:2D MEASUREMENTS: Normal Ranges:LAs: 3.10 cm (2.7-4.0cm)IVSd: 1.84 cm (0.6-1.1cm)LVPWd: 0.96 cm (0.6-1.1cm)LVIDd: 3.51 cm (3.9-5.9cm)LVIDs: 2.33 cmLV Mass Index: 79.3 g/m2LV % FS 33.6 %LA VOLUME: Normal Ranges:LA Vol A4C: 42.8 ml (22+/-6mL/m2)LA Vol A2C: 36.3 mlLA Vol BP: 44.5 mlLA Vol Index A4C: 19.6ml/m2LA Vol Index A2C: 16.6 ml/m2LA Vol Index BP: 20.4 ml/m2LA Area A4C: 17.4cm2LA Area A2C: 14.2 cm2LA [place] A4C: 6.0 cmLA [place] A2C: 4.7 cmLA Volume Index: 15.2 ml/m2RA VOLUME BY A/L METHOD: Normal Ranges:RA Area A4C: 12.8 zn2F-MFFA MEASUREMENTS: Normal Ranges:Ao Root: 2.90 cm (2.0-3.7cm)LAs: 3.80 cm (2.7-4.0cm)AORTA MEASUREMENTS: Normal Ranges:Ao Sinus, d: 3.45 cm (2.1-3.5cm)Ao STJ, d: 2.85 cm (1.7-3.4cm)Asc Ao, d: 3.40 cm (2.1-3.4cm)LV SYSTOLIC FUNCTIONBY 2D PLANIMETRY (MOD): Normal Ranges:EF-A4C View: 59.9 % (>55%)EF-A2C View: 66.3 %EF-Biplane: 63.4 %LV DIASTOLIC FUNCTION: Normal Ranges:MV Peak E: 0.60 m/s (0.7-1.2 m/s)MV Peak A: 0.71 m/s (0.42-0.7 m/s)E/A Ratio: 0.84 (1.0-2.2)MV e' 0.05 m/s (>8.0)MV lateral e' 0.05 m/sMV medial e' 0.05 m/sMV A Dur: 148.00 msecE/e' Ratio: 11.92 (<8.0)a' 0.14 m/sMV DT: 261 msec (150-240 msec)PulmV Sys Jeremiah: 51.80 cm/sPulmV Pablo Jeremiah: 29.80 cm/sPulmV S/D Jeremiah: 1.70PulmV A Revs Jeremiah: 31.50 cm/sPulmV A Revs Dur: 116.00 msecMITRAL VALVE: NormalRanges:MV DT: 261 msec (150-240msec)AORTIC VALVE: Normal Ranges:AoV Vmax: 1.02 m/s (<1.7m/s)AoV Peak P.2 mmHg (<20mmHg)LVOT Max Jeremiah: 0.87 m/s (<1.1m/s)LVOT VTI: 17.70 cmRIGHT VENTRICLE:RV 1 3.22 cmRV 2 2.33 cmRV 3 7.96 cmTAPSE: 19.1 mmRV s' 0.13 m/sTRICUSPID VALVE/RVSP: Normal Ranges:IVC Diam: 2.03 cmPULMONIC VALVE: Normal Ranges:PV Max Jeremiah: 1.0 m/s (0.6-0.9m/s)PV Max P.2 mmHgPulmonary Veins:PulmV A Revs Dur: 116.00 msecPulmV A Revs Jeremiah: 31.50 cm/sPulmV Pablo Jeremiah: 29.80 cm/sPulmV S/D Jeremiah: 1.70PulmV Sys Jeremiah: 51.80 cm/s Echocardiogram [Mar 19 2018 2:30PM] Impression: 1. No radiographic evidence of acute cardiopulmonary process. Xray Chest 2 View PA + Lateral [Mar 19 2018 2:19PM] Impression: 1. No radiographic evidence of acute cardiopulmonary process. Xray Chest 1 View [Mar 19 2018 9:20AM] Assessment and Plan:Assessment:67 yo M with HTN, DLD, T2DM, Addisson's, GERD, prostate ca s/p prostatectomy [id number], hypothyroidism, psoriasis, and most recently diagnosed with a PE andmultivessel CAD transferred to medicine at [facility] from [facility] for CABG eval. Multiple PEs- addison. Segmental and subsegmental PE on CT- Repeat TTE --> No Right dilation or strain- 2V CXR --> No radiographic evidence of acute cardiopulmonary process.- Appreciate Pulmonary assistance- c/w Heparin gtt- Plan for IVC Filter Friday in IR- Delay CABG for 1 week Tentative plan with Dr. Gaston Friday 03/30-- plan for 3-6 months anticoagulation (1st episode unprovoked PE) Multivessel CAD- 03/19 TTE EF 60-65%, impaired relaxation- EKG without acute ST T wave changes- Hold LAUREN perioperatively- Starting Atorva 40 mg- Switch Metoprolol to Carvedilol for better BP control- Cardiac Cath uploaded- Plan for CABG with Dr. Gaston week of 03/30 s/p recent root canal- orthopantogram T2DM- Holding home Metformin- SSI and hypoglycemia protocol- A1C 7.9%- BS 195, 234, 243, 192- likely to improved with reducing Hydrocortisone dose [facility]'s disease- Reduce fludrocortisone to 0.05 mg daily- Reduce hydrocortisone to 10mg/5mg/2.5mg- Follow Endocrine recs when NPO GERD- Continue home PPI HTN- Holding LAUREN- 159/83 - 171/102 over past 24 hours- 03/20 Increase Carvedilol to 12.5mg BID- Monitor BP with reducing Florinef dose DLD- Atorva 40mg- lipids 155/44/82/141 HypothyroidismTSH 2.51- Continue home levothyroxine GI ppx: on PPICode status: Full Electronic Signatures:Vito Patino (LOAN SERVICES PROFESSIONAL-REPLANTER) (Signed 21-Mar-2018 14:04)Authored: Service, Subjective Data, Objective Data, Assessment and Plan,Signature/Cosignature/Att estationSPatience decker) (Signed 22-Mar-2018 13:55)Co-Signer: Service, Subjective Data, Objective Data, Assessment and Plan,Signature/Cosignature/Att estation Last Updated: 22-Mar-2018 13:55 by Patience Sow) Normal [facility] Daily Progress Note-Endocrin yarelyyon 03-21-2018 Protein mass conc Consult Type: subseq uent visit/care Service: Endocrinology Subjective Data:DON ELKINS is a 67 year old Male who is Hospital Day # 4. Patient is doing okay today. Mo Complaints.His CABG was postponed.Possible IVC filter early next week. Objective Data: Objective Information:T GSHVCfP5Nmhrm19.38251717/8197% Date/Time03/21 8: 8: 8: 8: 8:00Range(36.3C - 36.5C ) (78 - 90 ) (18 - 21 ) (134 - 171 )/ (73 - 102 )(96% - 97% ) Pain with Activity reported at 03/21 8:30: 0Pain at Rest reported at 03/21 8:30: 0 Physical Exam: Constitutional: Well developed, awake/alert/oriented x3, no distress, alert andcooperative, Patel facies, central obesity, supraclavicular fat pasEyes: PERRL, EOMI, clear scleraRespiratory/Thorax: Diffuse decrease air entry bilaterallyCardiovascular: S1-S2 regular, no murmursGastrointestinal: Nondistended, soft, non-tender, +BS, no straiePsychological: Appropriate mood and behaviorSkin: warm and dry, acanthosis nigricans Medication: Medications: Continuous Medications -- 1. Heparin 25,000 units/ D5W 250 mL Infusion: 1000 units/hr IntraVenous Scheduled Medications -- 1. Aspirin Chewable: 81 mg Oral Daily2. Atorvastatin: 40 mg Oral Daily3. Carvedilol: 12.5 mg Oral 2 Times a Day4. Citalopram: 20 mg Oral Daily5. Docusate 50 mg - Senna 8.6 m tablet(s) Oral 2 Times a Day6. Fludrocortisone: 0.05 mg Oral Daily7. Heparin (Repeat Bolus) Injectable: 4000 unit(s) IntraVenous Push Every 2Meycg8. Hydrocortisone: 10 mg Oral 9. Hydrocortisone: 5 mg Oral 10. Hydrocortisone: 2.5 mg Oral 11. Insulin Lispro Mild Corrective Scale: unit(s) SubCutaneous 3 Times a DayBefore Meals12. Levothyroxine: 150 microgram(s) Oral Daily13. Mupirocin 2%: 0.5 application(s) Each Nostril 2 Times a Day14. Pantoprazole: 40 mg Oral Daily15. Polyethylene Glycol: 17 gram(s) Oral Daily16. rOPINIRole: 2 mg Oral 3 Times a Day PRN Medications -- 1. Dextrose 50% in Water Injectable: 25 gram(s) IntraVenous Push Every 29Hiwkvxf4. Glucagon Injectable: 1 mg IntraMuscular Every 15 Minutes Recent Lab Results: Results: I have reviewed these laboratory results: Glucose_POCT Trending View [id number] 08:37:00 20-Mar-2018 17:30:00 20-Mar-2018 13:24:00 20-Mar-2018 08:28:00 19-Mar-2018 21:30:00 19-Mar-2018 18:25:00Glucose-SNVY014 H 243 H 234 H 195 H 308 H 226 H Complete Blood Count Trending View [id number] 19:09:00 19-Mar-2018 17:57:00White Blood Cell Count11.0 10.8Nucleated Erythrocyte Count0.0 0.0Red Blood Cell Count4.48 L 4.32 LHGB14.0 13.4 LHCT40.8 L 39.6 LMCV91 46DNXD89.3 33.7WNM141 259RDW-CV13.1 13.0 Renal Function Panel Trending View [id number] 19:09:00 19-Mar-2018 17:57:00Glucose, Jgebs887 H 229 EBW795 137K4.0 3.4BW702 102Bicarbonate, Serum24 23Anion Gap, Serum16 34VQB56 25 HCREAT1.38 H 1.36 HGFR-Non Liolfpjf93 A 52 AGFR- Dbctjmoc12 63Calcium, Serum9.0 9.4Phosphorus, Serum4.3 3.6ALB3.9 3.9 Assessment and Plan:Assessment: Mr. Elkins is a 67 yo WM with no known history of CAD, who has a past medicalhistory of HTN, HLD, T2DM, [facility]'s disease, hypothyroidism, COPD, AKASH onCPAP, prostate ca s/p prostatectomy in 2011, and psoriasis who was [facility]to [facility] from [facility] on 03/18 forCABG marshall.Endocrine consulted fr evaluation of Brigida disease and treatment periop Patient is o supra-therapeutic dose of HCT 20-0-20 , fludrocortisone 0.1 ,mgdailyPatient has uncontrolled HTN and uncontrolled BS REcs:-Continue Fludrocortisone to 0.05 mg daily- Continue Hydrocortisone to 10-5-2.5 mg at 0xg-20gb-9tc DAILY-- On day of IVC filter placement, please give hydrocortisone 30mg PO in themorning, 10mg at noon and 5mg at 5pm and keep fludrocortisone 0.05mg pleasemake sure that patient receive his HC and fludrocortisone before his procedure-On the day of the surgery please give Hydrocortisone 30 mg by mouth once at 5am , check the cortisol level at 7 am , then continue Hydrocortisone as 25 mgIV q6hrs thereafter as of 8 am. Please keep endo team informed about the dateof the surgery please.-will follow Please page with questions [phone] Patient seen and examined, plan discussed with Dr Quevedo Signature/Cosignature/Attestat ion:Attending AttestationI saw and evaluated the patient. I personally obtainedthe judge and critical portions of the history and physical exam or wasphysically present for judeg and critical portions performed by theresident/fellow. I reviewed the resident/fellows documentation and discussedthe patient with the resident/fellow. I agree with the resident/fellowsmedical decision making as documented in the residents note.I personally evaluated the patient (as noted in the above attestation) [id number] Electronic Signatures:Starr Quevedo) (Signed 23-Mar-2018 12:34)Authored: Signature/Cosignature/Attestat ionCo-Signer: Service, Subjective Data, Objective Data, Assessment and Plan,Signature/Cosignature/Att estationJob Torres (Resident)) (Signed 21-Mar-2018 11:41)Authored: Service, Subjective Data, Objective Data, Assessment and Plan,Signature/Cosignature/Att estation Last Updated: 23-Mar-2018 12:34 by Starr Quevedo) Normal [facility] Daily Progress Note-Pulmonol ogkelsi 03-21-2018 Daily Progress Note-Pulmonology Service: Pulmonology Subjective Data:DON ELKINS is a 67 year old Male who is Hospital Day # 4. Additional Information:Pt denies any active complaints. has been ambulatory in [facility] w/o CP/SOB.Previously, on occassion would have bleeding gums, but has not noticed anysince starting heparin. Reports cough, no sputum production. Objective Data: Objective Information:T PEBTOjK6Hncun412296903/7997%Da te/Time03/21 12: 12: 12: 12: 12:00Range(36C - 36.5C ) (78 - 90 ) (18 - 21 ) (134 - 171 )/ (73 - 102 ) (96%- 97% ) Pain with Activity reported at 03/21 8:30: 0Pain at Rest reported at 03/21 8:30: 0T BUAAIgA5Hjkof585865995/7997%Da te/Time03/21 12: 12: 12: 12: 12:00Range(36C - 36.5C ) (78 - 90 ) (18 - 21 ) (134 - 171 )/ (73 - 102 ) (96%- 97% ) Physical Exam: Constitutional: awake, alert, comfortable, following commandsRespiratory/Thorax: Speaking full sentences, normal WOB, B/L cracklesCardiovascular: RRR no GRMGastrointestinal: Obese, S/NT/ND/NABSExtremities: Trace B/L LE swellingNeurological: CN 2-12 grossly intact, non-focalPsychological: Normal mood, affectSkin: warm, dry Medication: Medications: Continuous Medications -- 1. Heparin 25,000 units/ D5W 250 mL Infusion: 1000 units/hr IntraVenous Scheduled Medications -- 1. Aspirin Chewable: 81 mg Oral Daily2. Atorvastatin: 40 mg Oral Daily3. Carvedilol: 12.5 mg Oral 2 Times a Day4. Citalopram: 20 mg Oral Daily5. Docusate 50 mg - Senna 8.6 m tablet(s) Oral 2 Times a Day6. Fludrocortisone: 0.05 mg Oral Daily7. Heparin (Repeat Bolus) Injectable: 4000 unit(s) IntraVenous Push Every 8Xruds4. Hydrocortisone: 10 mg Oral 9. Hydrocortisone: 5 mg Oral 10. Hydrocortisone: 2.5 mg Oral 11. Insulin Lispro Mild Corrective Scale: unit(s) SubCutaneous 3 Times a DayBefore Meals12. Levothyroxine: 150 microgram(s) Oral Daily13. Mupirocin 2%: 0.5 application(s) Each Nostril 2 Times a Day14. Pantoprazole: 40 mg Oral Daily15. Polyethylene Glycol: 17 gram(s) Oral Daily16. rOPINIRole: 2 mg Oral 3 Times a Day PRN Medications -- 1. Dextrose 50% in Water Injectable: 25 gram(s) IntraVenous Push Every 24Hsfdsew1. Glucagon Injectable: 1 mg IntraMuscular Every 15 Minutes Recent Lab Results: Results: I have reviewed these laboratory results: Glucose_POCT Trending View [id number] 12:06:00 21-Mar-2018 08:37:00Glucose-QLOB476 H 192 H Heparin assay, UFH Trending View [id number] 07:10:00 21-Mar-2018 03:30:00Heparin assay, UFH0.4 0.4 Assessment and Plan:Assessment:67 years old male patient with PMHx of former smoker, prostate ca s/pprostatectomy in 2011, multi vessels CAD, Hypertension, hyperlipidemia, DLD,T2DM, Addisons, GERD, hypothyroidism, psoriasis with multivessels coronarydisease with acute pulmonary team for recent PE (03/15/18). Now patient isasymptomatic(denies for chest pain, dizziness, SOB, palpitation), maintainingsaturation on rom air.His PESI score: 107 CT PE: showed addison. Segmental and subsegmental PEEcho: EF 55-60%, impaired relaxation. Normal RV size/function IMPRESSIONS:- Unprovoked addison. Segmental & subsegmental PE. Sub-massive- Multi CAD RECOMMENDATIONS:- On RA - start saline nasal rinses- Obtain ambulatory oximetry and titrate oxygen to SpO2 > 88%- Continue full anticoagulation with heparin infusion- Recommend for IVC filter placement prior to surgery and ideally removed 4-6weeks post op and/or when surgical risk for bleeding is minimal and therapeuticAC can be restarted- Possible delay the CABG until the end of next week- Repeat images before surgery- Optimization of cardiac medications- continue incentive spirometry as this will be significantly helpful post-opas well- We will continue to follow. Thank you for consult Case seen, examined and discussed with Dr. Floyd call with questions [phone] Signature/Cosignature/Attestat ion:Attending AttestationI saw and evaluated the patient. I personally obtainedthe judge and critical portions of the history and physical exam or wasphysically present for judge and critical portions performed by theresident/fellow. I reviewed the resident/fellows documentation and discussedthe patient with the resident/fellow. I agree with the resident/fellowsmedical decision making as documented in the residents note.I personally evaluated the patient (as noted in the above attestation) [id number] Electronic Signatures:Angie Fuentes) (Signed 03-Apr-2018 14:11)Authored: Signature/Cosignature/Attestat ionCo-Signer: Assessment and Plan, Signature/Cosignature/Attestat Joseph Perez (Fellow)) (Signed 21-Mar-2018 13:00)Authored: Service, Subjective Data, Objective Data, Assessment and Plan,Signature/Cosignature/Att estation Last Updated: 03-Apr-2018 14:11 by Angie Fuentes) Normal [facility] GLUCOSE-POCTon 03-21-2018 Glucose mass conc 220 mg/dL High 74 - 99 [facility] Comment on above: Performed By: #### R ENAL ####[id number] [place] [address] Glucose mass conc 269 mg/dL High 74 - 99 [facility] Comment on above: Performed By: #### R ENAL ####[id number] [place] [address] Glucose mass conc 255 mg/dL High 74 - 99 [facility] Comment on above: Performed By: #### R ENAL ####[id number] [place] [address] Glucose mass conc 192 mg/dL High 74 - 99 [facility] Comment on above: Performed By: #### R ENAL ####[id number] [place] [address] HEPARIN ASSAY,UFHon 03-21-20 18 HEPARIN ASSAY,UFH 0.3 IU/mL Normal [facility] Comment on above: Result Comment: The therapeutic reference range for UFH may be either 0.3-0.6 IU/mL or 0.3-0.7 IU/mL based on the clinical setting for anticoagulant therapy and the associated nomogram used. For heparin dosing guidelines based on clinical scenario and Heparin Assay results, please refer to local Pharmacy and the [facility] Guidelines for Anticoagulation therapy available on the [facility] intranet at:[email or web address]_Guidelines_for_Anticoagu.aspx Performed By: #### R ENAL ####[id number] [id number] HEPARIN ASSAY,UFH 0.4 IU/mL Normal [facility] Comment on above: Result Comment: The therapeutic reference range for UFH may be either 0.3-0.6 IU/mL or 0.3-0.7 IU/mL based on the clinical setting for anticoagulant therapy and the associated nomogram used. For heparin dosing guidelines based on clinical scenario and Heparin Assay results, please refer to local Pharmacy and the [facility] Guidelines for Anticoagulation therapy available on the [facility] intranet at:[email or web address]/[place]_Guidelines_for_Anticoagu.aspx Performed By: #### R ENAL ####[id number] [place] [address] HEPARIN ASSAY,UFH 0.4 IU/mL Normal [facility] Comment on above: Result Comment: The therapeutic reference range for UFH may be either 0.3-0.6 IU/mL or 0.3-0.7 IU/mL based on the clinical setting for anticoagulant therapy and the associated nomogram used. For heparin dosing guidelines based on clinical scenario and Heparin Assay results, please refer to local Pharmacy and the [facility] Guidelines for Anticoagulation therapy available on the [facility] intranet at:[email or web address]/Pages/[place]_[facility]_Guidelines_for_Anticoagu.aspx Performed By: #### C OAGS ####[id number] [place] [address] HEPARIN ASSAY,UFH 0.2 IU/mL Normal [facility] Comment on above: Result Comment: The therapeutic reference range for UFH may be either 0.3-0.6 IU/mL or 0.3-0.7 IU/mL based on the clinical setting for anticoagulant therapy and the associated nomogram used. For heparin dosing guidelines based on clinical scenario and Heparin Assay results, please refer to local Pharmacy and [facility] Guidelines for Anticoagulation therapy available on the [facility] intranet at:[email or web address]/Pages/[place]_[facility]_Guidelines_for_Anticoagu.aspx Performed By: #### C OAGS ####[id number] [place] [address] CBCon 03-20-2018 Erythrocyte distribution width Auto Ratio (RBC) 13.1 % Normal 11.5 - 14.5 [facility] Comment on above: Performed By: #### C OAGS ####[id number] [id number] Hematocrit Auto Volume Fraction (Bld) 40.8 % Low 41.0 - 52.0 [facility] Comment on above: Performed By: #### C OAGS ####[id number] [id number] Hemoglobin mass conc (Bld) 14.0 g/dL Normal 13.5 - 17.5 [facility] Comment on above: Performed By: #### C OAGS ####[id number] [place] [address] MCHC Auto mass conc (RBC) 34.3 g/dL Normal 32.0 - 36.0 [facility] Comment on above: Performed By: #### C OAGS ####[id number] [place] [address] MCV Auto Entitic volume (RBC) 91 fL Normal 80 - 100 [facility] Comment on above: Performed By: #### C OAGS ####[id number] [place] [address] Nucleated RBC/100 WBC Ratio (Bld) 0.0 /100 WBC Normal 0.0-0.0 [facility] Comment on above: Performed By: #### C OAGS ####[id number] [place] [address] Platelets Auto #/vol (Bld) 252 10*3/uL Normal 150 - 450 [facility] Comment on above: Performed By: #### C OAGS ####[id number] [place] [address] RBC Auto #/vol (Bld) 4.48 x10E12/L Low 4.50 - 5.90 [facility] Comment on above: Performed By: #### C OAGS ####[id number] [place] [address] WBC Auto #/vol (Bld) 11.0 10*3/uL Normal 4.4 - 11.3 [facility] Comment on above: Performed By: #### C OAGS ####[id number] [place] [address] Clinical Event Note-Regardin g PE per Dr. Angel 03-20-2018 Clinical Event Note-Regarding PE per Dr. Yu Event:Topic: Regarding PE per Dr. YuDetails:Per Dr. Yu would like IVC Filter placed today 03/20/2018, and ideallystabilization for one week would be optimal.Will advice Dr. Gaston. Provider / Team Contact Information:Provider/Team Contact Info-Pager Number: cardiac surgery [phone] Electronic Signatures:Gilda Tai (LOAN SERVICES PROFESSIONAL-REPLANTER) (Signed 20-Mar-2018 11:53)Authored: Event, Provider / Team Contact Information Last Updated: 20-Mar-2018 11:53 by Gilda Tai (LOAN SERVICES PROFESSIONAL-REPLANTER) [facility] Consult-Endocrinologyon 11-0 Consult-Endocrino logy Service:Service: Endocrinology History of Present Illness:Admission Reason: Transferred for CABG evalHPI:PCP: Sal Hernandez ([facility]) - Levi Sinha: [place] 67 yo WM with no known history of CAD, who has a past medical history of HTN,HLD, T2DM, Brigida's disease, hypothyroidism, COPD, AKASH on CPAP, prostate spring/p prostatectomy in 2011, and psoriasis who [facility] on [facility]18 for CABG eval. Family history significant for [place], DC, CHF, HTN, DM and DLD. He quit jteeohx34 years ago. Has an occasional beer, and denies any drug use. 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 Endocrine Consulted for evalaution of Brigida disease and HCt dosing preop. 12 points ROS obtained and negative unless otherwise stated above Outside Hospital cardiac work up:CTA at [place]:Pulmonary emboli involving the bilateral lobar segmental, and severalsubsegmental branches (RUL, RML, RLL, FIDEL, LLL). TTE at [facility] 03/15/18:EF 60-65% PMH: HTN, HLD, T2DM, [facility]'s disease, hypothyroidism, COPD, AKASH on CPAP,prostate ca s/p prostatectomy in 2011, psoriasis, remote hepatitis B, priorGERD, lumbar Degenerative disk disease, arthritis, kidney stones (current,small), cataract, plantar fasciitis PSH: prostatectomy 2011, R cataract surgery, cholecystectomy, appendectomy,sinus surgery, vasectomy, bilat carpal tunnel release surgery, ganglion cystremoval from hands, cystoscopy 2 weeks ago for microscopic hematuria, rootcanal 2 weeks ago. FHx: CAD/DC, cancer, DM, HTN, migraines, CVA Social: former smoker - quit 20yrs ago; occasional ETOH, no illicits; liveswith spouse in a house NKDA Preadmission Home Meds:asa 81mg dailycalcium 600+ D3 1 tab dailycitalopram 20mg dailycoenzyme Q10 100mg dailyfludrocortisone 0.1mg dailyhydrocortisone 20mg BIDibuprofen 600mg BIDlevothyroxine 150mcg dailylisinopril 20mg dailymetformin 500mg BIDMV dailyOmega-3 fatty acids fish oil 1 cap dailyomeprazole 40mg dailyropinirole 8mg dailysimvastatin 20mg daily Allergies: No Known Allergies: Objective: Objective Information: T [id number]/7496% Date/Time03/20 11: 11: 11: 11: 11:07Range(36.1C - 37.1C ) (67 - 90 ) (16 - 18 ) (119 - 174 )/ (74 - 101 )(95% - 97% )Highest temp of 37.1 C was recorded at 03/20 5:35 Physical Exam: Constitutional: central obesity , moonlike Facies , acanthosis nigricans, skintags , Supraclavicular fat [id number] RRRBP high up to 170 systolic in am treated with hydralazineno proximal myopathydarkening of the skin manly on the handsreflexes nle with no delayed relaxation phase Medications: Medications: Continuous Medications -- 1. Heparin 25,000 units/ D5W 250 mL Infusion: 1000 units/hr IntraVenous Scheduled Medications -- 1. Aspirin Chewable: 81 mg Oral Daily2. Atorvastatin: 40 mg Oral Daily3. Carvedilol: 12.5 mg Oral 2 Times a Day4. Citalopram: 20 mg Oral Daily5. Docusate 50 mg - Senna 8.6 m tablet(s) Oral 2 Times a Day6. Fludrocortisone: 0.1 mg Oral Daily7. Heparin (Repeat Bolus) Injectable: 4000 unit(s) IntraVenous Push Every 5Rxkfd3. Hydrocortisone: 20 mg Oral 2 Times a Day9. Influenza Virus (Inactive) HIGH DOSE Adult Vaccine: 0.5 mL KkygnKxqnbzdeVfnl18. Insulin Lispro Mild Corrective Scale: unit(s) SubCutaneous 3 Times a DayBefore Meals11. Levothyroxine: 150 microgram(s) Oral Daily12. Mupirocin 2%: 0.5 application(s) Each Nostril 2 Times a Day13. Pantoprazole: 40 mg Oral Daily14. Polyethylene Glycol: 17 gram(s) Oral Daily15. rOPINIRole: 2 mg Oral 3 Times a Day PRN Medications -- 1. Dextrose 50% in Water Injectable: 25 gram(s) IntraVenous Push Every 28Bcwmccq2. Glucagon Injectable: 1 mg IntraMuscular Every 15 Minutes Recent Lab Results: Results: I have reviewed these laboratory results: Glucose_POCT Trending View [id number] 08:28:00 19-Mar-2018 21:30:00 19-Mar-2018 18:25:00 19-Mar-2018 13:58:00 19-Mar-2018 08:27:00Glucose-VMFL816 H 308 H 226 H 175 H 172 H Renal Function Panel Trending View [id number] 17:57:00 19-Mar-2018 00:39:00Glucose, Wtonp051 H 206 HST556 138K3.9 4.2GU226 102Bicarbonate, Serum23 23Anion Gap, Serum16 37YZV92 H 49DSOOQ0.36 H 1.42 HGFR-Non Wqtzwpzs98 A 50 AGFR- Diefwshz34 61Calcium, Serum9.4 9.2Phosphorus, Serum3.6 3.5ALB3.9 4.1 Hepatic Function Panel 19-Mar-2018 00:39:00 ResultValueAspartate Transaminase, Serum 75 HALB 4.1T Bili 0.9Bilirubin, Serum Direct - Conjugated 0.2ALKP 50Alanine Aminotransferase, Serum 103 HT Pro 6.6 Lipid Panel 19-Mar-2018 00:39:00 ResultValueCholesterol, Serum 155 . AGE DESIRABLE BORDERLINE HIGH HIGH 0-19 Y 0 - 169 170 - 199 >/= 200 20-24 Y 0 - 189 190 - 224 >/= 225 >24 Y 0 - 199 200 - 239 >/= 240 All ranges are based on fasting sampHDL Cholesterol, Serum 44.5 . AGE VERY LOW LOW NORMAL HIGH 0-19 Y < 35 < 40 40-45 ---- 20-24 Y ---- < 40 >45 ---- >24 Y ---- < 40 40-60 >60.Cholesterol/HDL Ratio 3.5 REF VALUESDESIRABLE < 3.4HIGH RISK > 5.0LDL, Level 82 . NEAR BORD AGE DESIRABLE OPTIMAL HIGH HIGH VERY HIGH 0-19 Y 0 - 109 --- 110-129 >/= 130 ---- 20-24 Y 0 - 119 --- 120-159 >/= 160 ---- >24 Y 0 -VLDL, Serum 28Triglycerides, Serum 141 . AGE DESIRABLE BORDERLINE HIGH HIGH VERY HIGH 0 D-90 D 19 - 174 ---- ---- ----91 D- 9 Y 0 - 74 75 - 99 >/= 100 ---- 10-19 Y 0 - 89 90 - 129 >/= 130 ---- Thyroid Stimulating Hormone, Serum 19-Mar-2018 00:39:00 ResultValueThyroid Stimulating Hormone, Serum 2.51 Hemoglobin A1C 19-Mar-2018 00:03:00 ResultValueHemoglobin A1C, Level 7.9 Diagnosis of Diabetes-Adults Non-Diabetic: < or = 5.6% Increased risk for developing diabetes: 5.7-6.4% Diagnostic of diabetes: > or = 6.5%. Monitoring of Diabetes Age (y) Therapeutic Goal (%) Adults: >1Estimated Average Glucose 180 Assessment: 67 yo WM with no known history of CAD, who has a past medical history of HTN,HLD, T2DM, [facility]'s disease, hypothyroidism, COPD, AKASH on CPAP, prostate spring/p prostatectomy in 2011, and psoriasis who was transferred to [facility] from [facility] on 03/18 for CABG eval.Endocrine consulted fr evlaution of [facility] disease and treatment periop Patient is o supratherapeutic dose of HCT 20-0-20 , fludrocortisone 0.1 ,mgdailyPAtient has uncontrolled HTn and uncontrolled BS REcs:-Please decrease Fludro to 0.05 mg daily-Please change HCt to 10-5-2.5 mg at [id number] DAILY-On the day of the surgery please give HCt 30 mg by mouth once at 5 am , checkthe cortisol level at 7 am , then continue HCt as 25 mg IV q6hrs thereafter asof 8 am. Please keep endo team informed about the date of the surgery please.-will follow Patient seen and examined, plan discussed with Dr Quevedo Signature/Cosignature/Attestat ion:Attending AttestationI saw and evaluated the patient. I personally obtainedthe judge and critical portions of the history and physical exam or wasphysically present for judge and critical portions performed by theresident/fellow. I reviewed the resident/fellows documentation and discussedthe patient with the resident/fellow. I agree with the resident/fellowsmedical decision making as documented in the residents note.I personally evaluated the patient (as noted in the above attestation) [id number] Electronic Signatures:Starr Quevedo) (Signed 21-Mar-2018 10:00)Authored: Signature/Cosignature/Attestat ionCo-Signer: Service, History of Present Illness, Allergies, Objective,Assessment/Recommend ations, Signature/Cosignature/Attestat Job Garrison ( (Resident)) (Signed 20-Mar-2018 11:37)Authored: Service, History of Present Illness, Allergies, ObjectiveHasmukh Stephenson ( (Resident)) (Signed 20-Mar-2018 16:47)Entered: Objective, Assessment/Recommendations,Sig nature/Cosignature/Attestation Authored: Service, History of Present Illness, Allergies, Objective,Assessment/Recommend ations, Signature/Cosignature/Attestat ion Last Updated: 21-Mar-2018 10:00 by Starr Quevedo) [facility] Consult-Pulmonologyon 2017 Consult-Pulmonolo gy Service:Service: Pulmonology Consult:Consult requested by (Attending Name): Bradford Calderon: Acute PE History of Present Illness:HPI:67 years old male patient with PMHx of former smoker, prostate ca s/pprostatectomy in 2011, multi vessels CAD, Hypertension, hyperlipidemia, DLD,T2DM, Addisons, GERD, hypothyroidism, psoriasis was consulted to pulmonaryteam for recent PE (03/15/18) for further management. Patient was initiallytransfer from OSH for possible CABG. According to patient last two he has hasintermittent central and left sided chest pain, associated with nausea. 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 He was found to have trop leak which peaked at 2.25, with no EKGchanges. Bedside US was negative for DVT.Now, patient is asymptomatic, chest pain free, on room air with no breathingcomplaints. He denies any recent travels, immobilization abnormal clotting orbleeding history. He denies any palpitations, diaphoresis, near syncopeassociated with his prior chest discomfort episodes. Patient has last screeningcolonoscopy 8 years ago with multiple polyps removal. No GI follow up afterthat.PMHx of as per HPIPSH: as above and cataract surgery, cholecystectomy, appendectomy, carpaltunnel release surgery, cystoscopy 2 weeks ago for microscopic hematuria, rootcanal 2 weeks agoFamily history: [place], DC, CHF, HTN, DM and DLD. He quit smoking 20 years ago.Social Hx: Has an occasional beer, and denies any drug use. 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.12 points ROS obtained and negative unless otherwise stated above Review Family/Social History and ROS:Constitutional: NEGATIVE: Fever, Chills, Weight Loss Eyes: NEGATIVE: Blurry Vision, Vision Loss/ Change ENMT: NEGATIVE: Nasal Congestion, Throat Pain Respiratory: NEGATIVE: Dry Cough, Productive Cough, Wheezing, Shortness ofBreath Cardiac: NEGATIVE: Chest Pain, Dyspnea on Exertion, Orthopnea, Palpitations Gastrointestinal: NEGATIVE: Nausea, Vomiting, Abdominal Pain Genitourinary: NEGATIVE: Discharge, Frequency Musculoskeletal: NEGATIVE: Decreased ROM, Stiffness Neurological: NEGATIVE: Dizziness, Syncope Psychiatric: NEGATIVE: Anxiety, Sleep Changes Skin: POSITIVE: Rash; NEGATIVE: Pain Endocrine: NEGATIVE: Sweat, Polyuria Hematologic/Lymph: NEGATIVE: Anemia, Petechiae Allergic/Immunologic: NEGATIVE: Itchy/ Teary Eyes, Itching Breast: NEGATIVE: Pain Allergies: No Known Allergies: Objective: Objective Information: Elsie [id number]/9296% Date/Time03/20 11: 14: 11: 14: 11:07Range(36.1C - 37.1C ) (67 - 90 ) (17 - 18 ) (119 - 174 )/ (74 - 101 )(95% - 97% )Highest temp of 37.1 C was recorded at 03/20 5:35 Physical Exam: Constitutional: Well developed, awake/alert/oriented x3, no distress, alert andcooperativeEyes: PERRL, EOMI, clear scleraENMT: mucous membranes moist, no apparent injury, no lesions seenHead/Neck: Neck supple, no apparent injury, thyroid without mass or tenderness,No JVD, trachea midline, no bruitsRespiratory/Thorax: Patent airways, CTAB, normal breath sounds with good chestexpansion, thorax symmetricCardiovascular: Regular, rate and rhythm, no murmurs, 2+ equal pulses of theextremities, normal S 1and S 2Gastrointestinal: Nondistended, soft, non-tender, no rebound tenderness orguarding, no masses palpable, no organomegaly, +BS, no bruitsMusculoskeletal: ROM intact, no joint swelling, normal strengthExtremities: normal extremities, no cyanosis edema, contusions or wounds, noclubbingNeurological: alert and oriented x3, intact senses, motor, response andreflexes, normal strengthPsychological: Appropriate mood and behaviorSkin: Warm and dry, no lesions, no rashes Medications: Medications: Continuous Medications -- 1. Heparin 25,000 units/ D5W 250 mL Infusion: 1000 units/hr IntraVenous Scheduled Medications -- 1. Aspirin Chewable: 81 mg Oral Daily2. Atorvastatin: 40 mg Oral Daily3. Carvedilol: 12.5 mg Oral 2 Times a Day4. Citalopram: 20 mg Oral Daily5. Docusate 50 mg - Senna 8.6 m tablet(s) Oral 2 Times a Day6. Fludrocortisone: 0.1 mg Oral Daily7. Heparin (Repeat Bolus) Injectable: 4000 unit(s) IntraVenous Push Every 0Ltgfu8. Hydrocortisone: 20 mg Oral 2 Times a Day9. Influenza Virus (Inactive) HIGH DOSE Adult Vaccine: 0.5 mL JwfudXzhmujmoYtvg13. Insulin Lispro Mild Corrective Scale: unit(s) SubCutaneous 3 Times a DayBefore Meals11. Levothyroxine: 150 microgram(s) Oral Daily12. Mupirocin 2%: 0.5 application(s) Each Nostril 2 Times a Day13. Pantoprazole: 40 mg Oral Daily14. Polyethylene Glycol: 17 gram(s) Oral Daily15. rOPINIRole: 2 mg Oral 3 Times a Day PRN Medications -- 1. Dextrose 50% in Water Injectable: 25 gram(s) IntraVenous Push Every 03Mocmoyi2. Glucagon Injectable: 1 mg IntraMuscular Every 15 Minutes Recent Lab Results: Results: I have reviewed these laboratory results: Glucose_POCT 20-Mar-2018 13:24:00 ResultValueGlucose-POCT 234 H Complete Blood Count 19-Mar-2018 17:57:00 ResultValueWhite Blood Cell Count 10.8Nucleated Erythrocyte Count 0.0Red Blood Cell Count 4.32 LHGB 13.4 LHCT 39.6 LMCV 92MCHC 33.8PLT 259RDW-CV 13.0 Heparin assay, UFH 19-Mar-2018 17:57:00 ResultValueHeparin assay, UFH 0.4 Arterial Hemoglobin and Hematocrit 19-Mar-2018 14:32:00 ResultValueHCT 41.0HGB, Calculated 13.9 Arterial Potassium 19-Mar-2018 14:32:00 ResultValuePotassium-Level 3.7 Blood Gas, Arterial 19-Mar-2018 14:32:00 ResultValuepH, Arterial 7.40pCO2, Arterial 39pO2, Arterial 79 LPatient-Temperature 37.0SO2, Arterial 96Base Excess-Blood -0.5Bicarbonate, Calculated, Arterial 24.2 Radiology Results: Results: Conclusion:VASC LAB PVR (Arterial Physiologic) BROOKS [Mar 20 2018 11:27AM] Conclusion:CONCLUSIONS: 1. The left ventricular systolic function is normal with a 60-65% estimatedejection fraction. 2. Spectral Doppler shows an impaired relaxation pattern of left ventriculardiastolic filling.QUANTITATIVE DATA SUMMARY:2D MEASUREMENTS: Normal Ranges:LAs: 3.10 cm (2.7-4.0cm)IVSd: 1.84 cm (0.6-1.1cm)LVPWd: 0.96 cm (0.6-1.1cm)LVIDd: 3.51 cm (3.9-5.9cm)LVIDs: 2.33 cmLV Mass Index: 79.3 g/m2LV % FS 33.6 %LA VOLUME: Normal Ranges:LA Vol A4C: 42.8 ml (22+/-6mL/m2)LA Vol A2C: 36.3 mlLA Vol BP: 44.5 mlLA Vol Index A4C: 19.6ml/m2LA Vol Index A2C: 16.6 ml/m2LA Vol Index BP: 20.4 ml/m2LA Area A4C: 17.4cm2LA Area A2C: 14.2 cm2LA Major [place] A4C: 6.0 cmLA Major [place] A2C: 4.7 cmLA Volume Index: 15.2 ml/m2RA VOLUME BY A/L METHOD: Normal Ranges:RA Area A4C: 12.8 jr6P-GZIH MEASUREMENTS: Normal Ranges:Ao Root: 2.90 cm (2.0-3.7cm)LAs: 3.80 cm (2.7-4.0cm)AORTA MEASUREMENTS: Normal Ranges:Ao Sinus, d: 3.45 cm (2.1-3.5cm)Ao STJ, d: 2.85 cm (1.7-3.4cm)Asc Ao, d: 3.40 cm (2.1-3.4cm)LV SYSTOLIC FUNCTIONBY 2D PLANIMETRY (MOD): Normal Ranges:EF-A4C View: 59.9 % (>55%)EF-A2C View: 66.3 %EF-Biplane: 63.4 %LV DIASTOLIC FUNCTION: Normal Ranges:MV Peak E: 0.60 m/s (0.7-1.2 m/s)MV Peak A: 0.71 m/s (0.42-0.7 m/s)E/A Ratio: 0.84 (1.0-2.2)MV e' 0.05 m/s (>8.0)MV lateral e' 0.05 m/sMV medial e' 0.05 m/sMV A Dur: 148.00 msecE/e' Ratio: 11.92 (<8.0)a' 0.14 m/sMV DT: 261 msec (150-240 msec)PulmV Sys Jeremiah: 51.80 cm/sPulmV Pablo Jeremiah: 29.80 cm/sPulmV S/D Jeremiah: 1.70PulmV A Revs Jeremiah: 31.50 cm/sPulmV A Revs Dur: 116.00 msecMITRAL VALVE: NormalRanges:MV DT: 261 msec (150-240msec)AORTIC VALVE: Normal Ranges:AoV Vmax: 1.02 m/s (<1.7m/s)AoV Peak P.2 mmHg (<20mmHg)LVOT Max Jeremiah: 0.87 m/s (<1.1m/s)LVOT VTI: 17.70 cmRIGHT VENTRICLE:RV 1 3.22 cmRV 2 2.33 cmRV 3 7.96 cmTAPSE: 19.1 mmRV s' 0.13 m/sTRICUSPID VALVE/RVSP: Normal Ranges:IVC Diam: 2.03 cmPULMONIC VALVE: Normal Ranges:PV Max Jeremiah: 1.0 m/s (0.6-0.9m/s)PV Max P.2 mmHgPulmonary Veins:PulmV A Revs Dur: 116.00 msecPulmV A Revs Jeremiah: 31.50 cm/sPulmV Pablo Jeremiah: 29.80 cm/sPulmV S/D Jeremiah: 1.70PulmV Sys Jeremiah: 51.80 cm/s Echocardiogram [Mar 19 2018 2:30PM] Impression: 1. No radiographic evidence of acute cardiopulmonary process. Xray Chest 2 View PA + Lateral [Mar 19 2018 2:19PM] Assessment:67 years old male patient with PMHx of former smoker, prostate ca s/pprostatectomy in 2011, multi vessels CAD, Hypertension, hyperlipidemia, DLD,T2DM, Addisons, GERD, hypothyroidism, psoriasis with multivessels coronarydisease with acute pulmonary team for recent PE (03/15/18). Now patient isasymptomatic(denies for chest pain, dizziness, SOB, palpitation), maintainingsaturation on rom air.His PESI score: 107 CT PE: showed addison. Segmental and subsegmental PEEcho: didn't showed RV dilation or RV strain. IMPRESSIONS:- Unprovoked addison. Segmental & subsegmental PE. Stable- Multi CAD RECOMMENDATIONS:- Continue full anticoagulation with heparin infusion- Recommend for IVC filter placement at this movement- Possible delay the CABG until the end of next week- Repeat images before surgery- Optimization of cardiac medications- We will continue to follow. Thank you for consult Case seen, examine and discussed with Dr. Yu. Signature/Cosignature/Attestat ion:Attending AttestationI saw and evaluated the patient. I personally obtainedthe judge and critical portions of the history and physical exam or wasphysically present for judge and critical portions performed by theresident/fellow. I reviewed the resident/fellows documentation and discussedthe patient with the resident/fellow. I agree with the resident/fellowsmedical decision making as documented in the resident/fellows note with theexception/addition of the following:I personally evaluated the patient (as noted in the above attestation) [id number]/ Additional FindingsConsulted for unprovoked PE. MOdest clot burden with little/no right heart strain and estimated RV/LV fromCT of 0.8, no oxygen needs or tachycardia. PESI of 107 barely intermediatemostly on history of remote resolved prostate cancer and age , could argue thatthis is not active and PESI is actually 77. No proximal clot reported on ultrasound. No family history of VTE. Rec:1) continue unfractionated heparin2) Place IVC filter electively before surgery as heparin will need to beinterrupted - can retrieve fliter in 4-6 weeks if patient can take continuousanticoagulation.3) Consideration of anticoagulation beyond 6 months duration4) Would restart unfractionated heparin after cardiac surgery and transition toDOAC if tolerated and no substantial bleeding risk from surgery. If bleedingremains a concern, reversible VKA etc may be a better choice.5) Age appropriate cancer screening.6) Would delay surgery until 7-10 days after PE if feasible to take advantageof intrinsic fibrinolysis and clot stabilization. Discussed with primary teamand surgeon. Electronic Signatures:Elaine France (Fellow)) (Entered 20-Mar-2018 15:56)Entered: Service, History of Present Illness, Review Family/Social History andROS, Allergies, Objective, Assessment/Recommendations,Sig nature/Cosignature/Attestation Zac Yu (DO) (Signed 21-Mar-2018 11:03)Entered: Signature/Cosignature/Attestat ionAuthored: Service, History of Present Illness, Review Family/Social Historyand ROS, Allergies, Objective, Assessment/Recommendations,Sig nature/Cosignature/Attestation Last Updated: 21-Mar-2018 11:03 by Zac Yu (DO) Normal [facility] Daily Progress Note-Cardiac Surgeryon 03-20-2018 Protein mass conc Consult Type: subseq uent visit/care Service: Cardiac Surgery Subjective Data:DON ELKINS is a 67 year old Male who is Hospital Day # 3. Objective Data: Objective Information:T [id number]/70855 %Date/Time03/20 11:0703/20 16: 16:5303/20 16: 16:53Range(36.1C - 37.1C ) (67 - 90 ) (17 - 20 ) (119 - 174 )/ (74 - 102 )(96% - 97% )Highest temp of 37.1 C was recorded at 03/20 5:35 Pain with Activity reported at 03/20 20:26: 0Pain at Rest reported at 03/20 20:26: 0 Hetudlc59/2 5:35: Weight in kg (Weight (kg)) 108.911 5:35: Weight in lbs ((lbs)) 240 Medication: Medications: Continuous Medications --1. Heparin 25,000 units/ D5W 250 mL Infusion: 1000 units/hr IntraVenous Scheduled Medications --1. Aspirin Chewable: 81 mg Oral Daily2. Atorvastatin: 40 mg Oral Daily3. Carvedilol: 12.5 mg Oral 2 Times a Day4. Citalopram: 20 mg Oral Daily5. Docusate 50 mg - Senna 8.6 m tablet(s) Oral 2 Times a Day6. Heparin (Repeat Bolus) Injectable: 4000 unit(s) IntraVenous Push Every 2Egvzl5. Hydrocortisone: 10 mg Oral 8. Hydrocortisone: 5 mg Oral 9. Hydrocortisone: 2.5 mg Oral 10. Insulin Lispro Mild Corrective Scale: unit(s) SubCutaneous 3 Times a DayBefore Meals11. Levothyroxine: 150 microgram(s) Oral Daily12. Mupirocin 2%: 0.5 application(s) Each Nostril 2 Times a Day13. Pantoprazole: 40 mg Oral Daily14. Polyethylene Glycol: 17 gram(s) Oral Daily15. rOPINIRole: 2 mg Oral 3 Times a Day PRN Medications --1. Dextrose 50% in Water Injectable: 25 gram(s) IntraVenous Push Every 34Nmrowxc1. Glucagon Injectable: 1 mg IntraMuscular Every 15 Minutes Recent Lab Results: Results:I have reviewed these laboratory results: Complete Blood Count 19-Mar-2018 17:57:00 ResultValueWhite Blood Cell Count 10.8Nucleated Erythrocyte Count 0.0Red Blood Cell Count 4.32 LHGB 13.4 LHCT 39.6 LMCV 92HC 33.8PLT 259RDW-CV 13.0 Renal Function Panel 19-Mar-2018 17:57:00 ResultValueGlucose, Serum 229 HNA 137K 3.9CL 102Bicarbonate, Serum 23Anion Gap, Serum 16BUN 25 HCREAT 1.36 HGFR-Non 52 AGFR- 63Calcium, Serum 9.4Phosphorus, Serum 3.6ALB 3.9 Blood Gas, Arterial 19-Mar-2018 14:32:00 ResultValuepH, Arterial 7.40pCO2, Arterial 39pO2, Arterial 79 LPatient-Temperature 37.0SO2, Arterial 96Base Excess-Blood -0.5Bicarbonate, Calculated, Arterial 24.2 Drug Screen, Pain Management with Reflex if Positive 19-Mar-2018 10:09:00 ResultValueComments. SEE BELOW Drug screen results are presumptive and should not be usedto assesscompliance with prescribed medication. Definitive confirmatory drug testinghas been added to this sample for any positive screen result and will bereported separateAmphetamine Screen, Urine PRESUMPTIVE NEGATIVE CUTOFF LEVEL: 500 NG/ML Cross-reactivity has been reported with high concentrations of the following drugs: buproprion, chloroquine, chlorpromazine, ephedrine, mephentermine, fenfluramine, phentermine, phenylpropanolamineBarbiturate Screen, Urine PRESUMPTIVE NEGATIVE PRESUMPTIVE NEGATIVE CUTOFF LEVEL: 200 NG/MLBenzodiazepine Screen, Urine PRESUMPTIVE NEGATIVE CUTOFF LEVEL: 200 NG/MLBenzodiazepine Confirmatory testing has been sent to a reference laboratoryand will be reported separately. Although the benzodiazepine screening testprovides rapid results; the confirmatory test prCannabinoid Screen, Urine PRESUMPTIVE NEGATIVE PRESUMPTIVE NEGATIVE CUTOFF LEVEL: 50 NG/MLCocaine Metabolite Screen, Urine PRESUMPTIVE NEGATIVE PRESUMPTIVE NEGATIVE CUTOFF LEVEL: 150 NG/MLMethadone Screen, Urine PRESUMPTIVE NEGATIVE CUTOFF LEVEL: 150 NG/ML The metabolite C-rqpmb-pxciuwnzsewsie (LAAM) is not detected by this method in concentrations that would be found in the urine of patients on LAAM therapy.Opiate Screen, Urine PRESUMPTIVE NEGATIVE CUTOFF LEVEL: 300 NG/ML The opiate screen does not detect fentanyl, meperidine, or tramadol. Oxycodone is not consistently detected (refer to Oxycodone Screen, Urine result).Opiate/Oxycodone Confirmatory testing has beenPCP Screen, Urine PRESUMPTIVE NEGATIVE CUTOFF LEVEL: 25 NG/ML Cross-reactivity has been reported with dextromethorphan. Urinalysis 19-Mar-2018 10:09:00 ResultValueColor, Urine YELLOW Reference Range: STRAW,YELLOWAppearance, Urine CLEARSpecific Hensley, Urine 1.013pH, Urine 6.0Protein, Urine NEGATIVEGlucose, Urine NEGATIVEBlood, Urine NEGATIVEKetones, Urine NEGATIVEBilirubin, Urine NEGATIVEUrobilinogen, Urine 2.0 HNitrite, Urine NEGATIVELeukocyte Esterase, Urine NEGATIVE Culture, Urine 19-Mar-2018 10:09:00 ResultValueCulture, Urine NO SIGNIFICANT GROWTH. MRSA Screen 19-Mar-2018 09:34:00 ResultValueMRSA Screen NO Staphylococcus aureus ISOLATED. Hepatic Function Panel 19-Mar-2018 00:39:00 ResultValueAspartate Transaminase, Serum 75 HALB 4.1T Bili 0.9Bilirubin, Serum Direct - Conjugated 0.2ALKP 50Alanine Aminotransferase, Serum 103 HT Pro 6.6 Hemoglobin A1C 19-Mar-2018 00:03:00 ResultValueHemoglobin A1C, Level 7.9 Diagnosis of Diabetes-Adults Non-Diabetic: < or = 5.6% Increased risk for developing diabetes: 5.7-6.4% Diagnostic of diabetes: > or = 6.5%. Monitoring of Diabetes Age (y) Therapeutic Goal (%) Adults: >1Estimated Average Glucose 180 Assessment and Plan:Assessment:67 yo WM with no prior history of CAD, who has a past medical history of HTN,HLD, T2DM, [facility]'s disease, hypothyroidism, COPD, AKASH on CPAP, prostate spring/p prostatectomy in 2011, and psoriasis [facility] on [facility]/18 for CABG eval. [place] and dys[place]. He as found to havebilat PEs, was started on Heparin gtt, and transferred to [facility]. He wasfound to have a troponin leak at 2.25. Cardiology was consulted and the patientwas diagnosed with ACS, NSTEMI. He underwent a TTE and cath. He had normal EF,mild AI, and triple vessel CAD so was transferred to [facility] for CABG eval.Cardiac surgery consulted 03/19 for CABG eval. Plan- Dr Yu recommends holding off on CABG if able to allow ~ 1 week on Heparingtt for the PE; he also recommended an IVC filter be placed- Dr Gaston is in agreement with Dr Yu' recommendation and has cancelled thesurgery for 03/23- Dr Gaston met with patient today 03/20, and the patient is in agreement with plan- Dr Gaston also requests a Heme consult for hypercoagulable w/u (unless Pulmmakes recs for this)- anticipate new date will be ~ 03/30, if pt remains stable/asymptomatic Please call cardiac surgery immediately if the patient deteriorates clinically Signature/Cosignature/Attestat ion:Provider/Team Contact Info-Pager Numbercardiac surgery [phone] Electronic Signatures:Mary Munroe (LOAN SERVICES PROFESSIONAL-REPLANTER) (Signed 20-Mar-2018 20:40)Authored: Service, Subjective Data, Objective Data, Assessment and Plan,Signature/Cosignature/Att estation Last Updated: 20-Mar-2018 20:40 by Mary Munroe (LOAN SERVICES PROFESSIONAL-REPLANTER) Normal [facility] Daily Progress Note-Cardiolo augustinon 03-20-2018 Protein mass conc Service: Cardiology Subjective Data:DON ELKINS is a 67 year old Male who is Hospital Day # 3. Additional Information:Remains hypertensive, Chest CTA reviewed by pulmonary to assess extent of PE's - Increase Carvedilol to 12.5mg BID- Plan for IVC filter- c/w Heparin gtt- Delay CABG until ~03/30/18, keep inpatient on Heparin gtt- Reduce Fludrocortisone and Hydrocortisone per Endocrinology Objective Data: Objective Information:T [id number]/09096 %Date/Time03/20 11: 16: 16: 16: 16:53Range(36.1C - 37.1C ) (67 - 90 ) (17 - 20 ) (119 - 174 )/ (74 - 102 )(96% - 97% )Highest temp of 37.1 C was recorded at 03/20 5:35 Pain with Activity reported at 03/20 8:30: 0Pain at Rest reported at 03/20 8:30: 0 Urrepam45/2 5:35: Weight in kg (Weight (kg)) 108.911 5:35: Weight in lbs ((lbs)) 240 Physical Exam: Constitutional: Resting in bed, NADHead/Neck: No JVDRespiratory/Thorax: CTABCardiovascular: RRR, S1 Q9Ijuoakomtndkygjg: soft, NT/NDExtremities: Right wrist site of catheterization intact, normal pulse. Noperipheral edemaNeurological: alert and oriented l3Qbwgiirdlcatj: Appropriate mood and behaviorSkin: psoriasis plaque over elbows and knees Medication: Medications: Continuous Medications -- 1. Heparin 25,000 units/ D5W 250 mL Infusion: 1000 units/hr IntraVenous Scheduled Medications -- 1. Aspirin Chewable: 81 mg Oral Daily2. Atorvastatin: 40 mg Oral Daily3. Carvedilol: 12.5 mg Oral 2 Times a Day4. Citalopram: 20 mg Oral Daily5. Docusate 50 mg - Senna 8.6 m tablet(s) Oral 2 Times a Day6. Heparin (Repeat Bolus) Injectable: 4000 unit(s) IntraVenous Push Every 3Hoyix3. Hydrocortisone: 10 mg Oral 8. Hydrocortisone: 5 mg Oral 9. Hydrocortisone: 2.5 mg Oral 10. Insulin Lispro Mild Corrective Scale: unit(s) SubCutaneous 3 Times a DayBefore Meals11. Levothyroxine: 150 microgram(s) Oral Daily12. Mupirocin 2%: 0.5 application(s) Each Nostril 2 Times a Day13. Pantoprazole: 40 mg Oral Daily14. Polyethylene Glycol: 17 gram(s) Oral Daily15. rOPINIRole: 2 mg Oral 3 Times a Day PRN Medications -- 1. Dextrose 50% in Water Injectable: 25 gram(s) IntraVenous Push Every 68Svzalsa1. Glucagon Injectable: 1 mg IntraMuscular Every 15 Minutes Recent Lab Results: Results: I have reviewed these laboratory results: Glucose_POCT Trending View [id number]-0870 17:30:00 20-Mar-2018 13:24:00 20-Mar-2018 08:28:00 19-Mar-2018 21:30:00 19-Mar-2018 18:25:00Glucose-MJMR270 H 234 H 195 H 308 H 226 H Complete Blood Count 19-Mar-2018 17:57:00 ResultValueWhite Blood Cell Count 10.8Nucleated Erythrocyte Count 0.0Red Blood Cell Count 4.32 LHGB 13.4 LHCT 39.6 LMCV 92MCHC 33.8PLT 259RDW-CV 13.0 Renal Function Panel 19-Mar-2018 17:57:00 ResultValueGlucose, Serum 229 HNA 137K 3.9CL 102Bicarbonate, Serum 23Anion Gap, Serum 16BUN 25 HCREAT 1.36 HGFR-Non 52 AGFR- 63Calcium, Serum 9.4Phosphorus, Serum 3.6ALB 3.9 Heparin assay, UFH 19-Mar-2018 17:57:00 ResultValueHeparin assay, UFH 0.4 COOX Panel, Arterial 19-Mar-2018 14:32:00 ResultValueHGB 14.9Oxy Hgb, Arterial 93.9 LCO Hgb, Arterial 1.1Met Hgb, Arterial 1.2Deoxy Hgb, Arterial 3.7 Arterial Hemoglobin and Hematocrit 19-Mar-2018 14:32:00 ResultValueHCT 41.0HGB, Calculated 13.9 Radiology Results: Results: Conclusion:VASC LAB PVR (Arterial Physiologic) [facility] [Mar 20 2018 11:27AM] Conclusion:VASC LAB PVR (Arterial Physiologic) [facility]OOKS [Mar 20 2018 11:14AM] Conclusion:VASC LAB Pre-op Vessel Vein Mapping [Mar 20 2018 11:08AM] Conclusion:VASC LAB Arterial Duplex Ultrasound [Mar 20 2018 11:01AM] Conclusion:VASC LAB Carotid Artery Duplex Ultrasound [Mar 20 2018 10:56AM] Impression: Suspected periapical abscess right maxillary premolar. Xray Orthopantogram [Mar 19 2018 3:30PM] Conclusion:CONCLUSIONS: 1. The left ventricular systolic function is normal with a 60-65% estimatedejection fraction. 2. Spectral Doppler shows an impaired relaxation pattern of left ventriculardiastolic filling.QUANTITATIVE DATA SUMMARY:2D MEASUREMENTS: Normal Ranges:LAs: 3.10 cm (2.7-4.0cm)IVSd: 1.84 cm (0.6-1.1cm)LVPWd: 0.96 cm (0.6-1.1cm)LVIDd: 3.51 cm (3.9-5.9cm)LVIDs: 2.33 cmLV Mass Index: 79.3 g/m2LV % FS 33.6 %LA VOLUME: Normal Ranges:LA Vol A4C: 42.8 ml (22+/-6mL/m2)LA Vol A2C: 36.3 mlLA Vol BP: 44.5 mlLA Vol Index A4C: 19.6ml/m2LA Vol Index A2C: 16.6 ml/m2LA Vol Index BP: 20.4 ml/m2LA Area A4C: 17.4cm2LA Area A2C: 14.2 cm2LA [place] A4C: 6.0 cmLA [place] A2C: 4.7 cmLA Volume Index: 15.2 ml/m2RA VOLUME BY A/L METHOD: Normal Ranges:RA Area A4C: 12.8 so6G-EARI MEASUREMENTS: Normal Ranges:Ao Root: 2.90 cm (2.0-3.7cm)LAs: 3.80 cm (2.7-4.0cm)AORTA MEASUREMENTS: Normal Ranges:Ao Sinus, d: 3.45 cm (2.1-3.5cm)Ao STJ, d: 2.85 cm (1.7-3.4cm)Asc Ao, d: 3.40 cm (2.1-3.4cm)LV SYSTOLIC FUNCTIONBY 2D PLANIMETRY (MOD): Normal Ranges:EF-A4C View: 59.9 % (>55%)EF-A2C View: 66.3 %EF-Biplane: 63.4 %LV DIASTOLIC FUNCTION: Normal Ranges:MV Peak E: 0.60 m/s (0.7-1.2 m/s)MV Peak A: 0.71 m/s (0.42-0.7 m/s)E/A Ratio: 0.84 (1.0-2.2)MV e' 0.05 m/s (>8.0)MV lateral e' 0.05 m/sMV medial e' 0.05 m/sMV A Dur: 148.00 msecE/e' Ratio: 11.92 (<8.0)a' 0.14 m/sMV DT: 261 msec (150-240 msec)PulmV Sys Jeremiah: 51.80 cm/sPulmV Pablo Jeremiah: 29.80 cm/sPulmV S/D Jeremiah: 1.70PulmV A Revs Jeremiah: 31.50 cm/sPulmV A Revs Dur: 116.00 msecMITRAL VALVE: NormalRanges:MV DT: 261 msec (150-240msec)AORTIC VALVE: Normal Ranges:AoV Vmax: 1.02 m/s (<1.7m/s)AoV Peak P.2 mmHg (<20mmHg)LVOT Max Jeremiah: 0.87 m/s (<1.1m/s)LVOT VTI: 17.70 cmRIGHT VENTRICLE:RV 1 3.22 cmRV 2 2.33 cmRV 3 7.96 cmTAPSE: 19.1 mmRV s' 0.13 m/sTRICUSPID VALVE/RVSP: Normal Ranges:IVC Diam: 2.03 cmPULMONIC VALVE: Normal Ranges:PV Max Jeremiah: 1.0 m/s (0.6-0.9m/s)PV Max P.2 mmHgPulmonary Veins:PulmV A Revs Dur: 116.00 msecPulmV A Revs Jeremiah: 31.50 cm/sPulmV Pablo Jeremiah: 29.80 cm/sPulmV S/D Jeremiah: 1.70PulmV Sys Jeremiah: 51.80 cm/s Echocardiogram [Mar 19 2018 2:30PM] Impression: 1. No radiographic evidence of acute cardiopulmonary process. Xray Chest 2 View PA + Lateral [Mar 19 2018 2:19PM] Impression: 1. No radiographic evidence of acute cardiopulmonary process. Xray Chest 1 View [Mar 19 2018 9:20AM] Assessment and Plan:Assessment:67 yo M with HTN, DLD, T2DM, Addisson's, GERD, prostate ca s/p prostatectomy [id number], hypothyroidism, psoriasis, and most recently diagnosed with a PE andmultivessel CAD transferred to medicine at [facility] from [facility] on03/18 for CABG eval. Multiple PEs- addison. Segmental and subsegmental PE on CT- Repeat TTE --> No Right dilation or strain- 2V CXR --> No radiographic evidence of acute cardiopulmonary process.- Appreciate Pulmonary assistance- c/w Heparin gtt- Plan for IVC Filter- Delay CABG for 1 week- Hypercoagulable work up Multivessel CAD- 03/19 TTE EF 60-65%, impaired relaxation- EKG without acute ST T wave changes- Hold LAUREN perioperatively- Starting Atorva 40 mg- Switch Metoprolol to Carvedilol for better BP control- Cardiac Cath uploaded- Plan for CABG with Dr. Gaston week of 03/30 s/p recent root canal- orthopantogram T2DM- Holding home Metformin- SSI and hypoglycemia protocol- A1C 7.9%- BS 172, 175, 226, 308, 195 [facility]'s disease- Reduce fludrocortisone to 0.05 mg daily- Reduce hydrocortisone to 10mg/5mg/2.5mg- Follow Endocrine recs pre op GERD- Continue home PPI HTN- Holding LAUREN- 120/79 - 171/93- Increase Carvedilol to 12.5mg BID- Monitor BP with reducing Florinef dose DLD- Atorva 40mg- lipids 155/44/82/141 HypothyroidismTSH 2.51- Continue home levothyroxine GI ppx: on PPICode status: Full Electronic Signatures:Vito Patino (LOAN SERVICES PROFESSIONAL-REPLANTER) (Signed 20-Mar-2018 19:13)Authored: Service, Subjective Data, Objective Data, Assessment and Plan,Signature/Cosignature/Att estationMor Calderon) (Signed 01-Apr-2018 13:54)Co-Signer: Service, Subjective Data, Objective Data, Assessment and Plan,Signature/Cosignature/Att estation Last Updated: 01-Apr-2018 13:54 by Mor Calderon) Normal [facility] GLUCOSE-POCTon 03-20-2018 Glucose mass conc 243 mg/dL High 74 - 99 [facility] Comment on above: Performed By: #### C OAGS ####[id number] [place] [address] Glucose mass conc 234 mg/dL High 74 - 99 [facility] Comment on above: Performed By: #### C OAGS ####[id number] [place] [address] Glucose mass conc 195 mg/dL High 74 - 99 [facility] Comment on above: Performed By: #### C BC ####[id number] [place] [address] HEMOGLOBIN A1Con 03-20-2018 Glucose mass conc Canceled Normal [facility] Comment on above: Order Comment: TEST HEMOGLOBIN A1C WAS CANCELLED, 03/20/2018 18:41 DUPLICATE ORDER. Performed By: #### C OAGS ####[id number] [place] [address] Hemoglobin A1c/Hemoglobin.to romy mass fraction (Bld) Canceled Normal [facility] Comment on above: Order Comment: TEST HEMOGLOBIN A1C WAS CANCELLED, 03/20/2018 18:41 DUPLICATE ORDER. Result Comment: Diag nosis of Diabetes-Adults Non-Diabetic: < or = 5.6% Increased risk for developing diabetes: 5.7-6.4% Diagnostic of diabetes: > or = 6.5%. Monitoring of Diabetes Age (y) Therapeutic Goal (%) Adults: >18 <7.0 Pediatrics: 13-18 <7.5 7-12 <8.0 0- 6 7.5-8.5 [employer]. Diabetes Care 33(S1), May 2009. Performed By: #### C OAGS ####[id number] [place] [address] HEPARIN ASSAY,UFHon 03-20-20 18 HEPARIN ASSAY,UFH 0.1 IU/mL Normal [facility] Comment on above: Result Comment: The therapeutic reference range for UFH may be either 0.3-0.6 IU/mL or 0.3-0.7 IU/mL based on the clinical setting for anticoagulant therapy and the associated nomogram used. For heparin dosing guidelines based on clinical scenario and Heparin Assay results, please refer to local Pharmacy and the [facility] Guidelines for Anticoagulation therapy available on the [facility] intranet at:[email or web address] Performed By: #### C OAGS ####[id number] [place] [address] MAGNESIUMon 03-20-2018 Magnesium mass conc Canceled Normal [facility] Comment on above: Order Comment: TEST MAGNESIUM WAS CANCELLED, 03/20/2018 08:04 NO SPECIMEN RECEIVED IN LAB. Performed By: #### C BC ####[id number] [place] [address] RENAL FUNCTION PANELon 03-20 Albumin mass conc 3.9 g/dL Normal 3.4 - 5.0 [facility] Comment on above: Performed By: #### C OAGS ####[id number] [place] [address] Anion gap 3 molar conc 16 mmol/L Normal 10 - 20 [facility] Comment on above: Performed By: #### C OAGS ####[id number] [place] [address] Calcium mass conc 9.0 mg/dL Normal 8.6 - 10.6 [facility] Comment on above: Performed By: #### C OAGS ####[id number] [place] [address] Chloride molar conc 102 mmol/L Normal 98 - 107 [facility] Comment on above: Performed By: #### C OAGS ####[id number] [place] [address] Creatinine mass conc 1.38 mg/dL High 0.50 - 1.30 [facility] Comment on above: Performed By: #### C OAGS ####[id number] [place] [address] GFR- AM. 62 mL/min/1.73m2 Normal >60 [facility] Comment on above: Result Comment: CALC ULATIONS OF ESTIMATED GFR ARE PERFORMED USING THE MDRD STUDY EQUATION FOR THE IDMS-TRACEABLE CREATININE METHODS. CLIN CHEM 2007;53:766-72 Performed By: #### C OAGS ####[id number] [place] [address] GFR-NON AM. 51 mL/min/1.73m2 Abnormal >60 [facility] Comment on above: Performed By: #### C OAGS ####[id number] [place] [address] Glucose mass conc 201 mg/dL High 74 - 99 [facility] Comment on above: Performed By: #### C OAGS ####[id number] [place] [address] HCO3 molar conc (Bld) 24 mmol/L Normal 21 - 32 [facility] Comment on above: Performed By: #### C OAGS ####[id number] [place] [address] Phosphate mass conc 4.3 mg/dL Normal 2.5 - 4.9 [facility] Comment on above: Result Comment: The performance characteristics of phosphorus testing in heparinized plasma have been validated by the individual laboratory site where testing is performed. Testing on heparinized plasma is not approved by the FDA; however, such approval is not necessary. Performed By: #### C OAGS ####[id number] [place] [address] Potassium molar conc 4.0 mmol/L Normal 3.5 - 5.3 [facility] Comment on above: Performed By: #### C OAGS ####[id number] [place] [address] Sodium molar conc 138 mmol/L Normal 136 - 145 [facility] Comment on above: Performed By: #### C OAGS ####[id number] [place] [address] Urea nitrogen mass conc 22 mg/dL Normal 6 - 23 [facility] Comment on above: Performed By: #### C OAGS ####[id number] [place] [address] VAS LAB Arterial Duplex Ult adriel 03-20-2018 [facility] LAB Arterial Duplex Ultrasound [facility], [address] [place] [address] and Vascular Lab Report Upper Arterial Duplex Ultrasound Patient Name: DON ELKINS Zaid Physician: [id number] Olesya Fall MDStudy Date: 03/20/2018 Referring Physician: [id number] Calderon MDMRN/PID: [id number] PCP:Accession/Order#: [id number] CC Report to:Date of : 1950 Technologist: Jasvir Owens RVTGender: Cristhian Technologist 2:Admission Status: Inpatient Location Performed: [facility] Diagnosis/ICD: I24.8-Cardiac Ischemia;Z01.818-Encounter for other preprocedural examinationProcedure/CPT: 34165 Upper arterial Duplex Limited-70434 CONCLUSIONS:Right Upper Arterial: The right radial artery is patent with triphasic waveforms.Left Upper Arterial: The left radial artery is patent with triphasic waveforms. Imaging & Doppler Findings: Right Left PSV Waveform PSV Iqldnxqe04 cm/s Triphasic Radial 87 cm/s Triphasic Right LeftRadial Diam P 2.6 mm 2.2 mmRadial Diam M 2.5 mm 2.2 mmRadial Diam D 2.3 mm 2.0 mm [id number] Olesya Fall MD Final Normal [facility] VASC LAB Carotid Artery Dupl ex Ultrasounon 03-20-2018 VASC LAB Carotid Artery Duplex Ultrasoun [facility], [address] [place] [address] and Vascular Lab Report Carotid Artery Duplex Ultrasound Patient Name: DON ELKINS Reading Physician: [id number] Olesya Fall MDStudy Date: 03/20/2018 Referring Physician: [id number] Calderon MDMRN/PID: [id number] PCP:Accession/Order#: [id number] CC Report to:Date of : 1950 Technologist: Jasvir Owens RVTGender: Cristhian Technologist 2:Admission Status: Inpatient Location Performed: [facility] Diagnosis/ICD: I24.8-Cardiac Ischemia;Z01.818-Encounter for other preprocedural examinationProcedure/CPT: 03844 Cerebrovacular Carotid Duplex scan complete-05267 CONCLUSIONS:Right Carotid: Findings are consistent with less than 50% stenosis of the right ICA. Right external carotid artery appears patent with no evidence of stenosis. The right vertebral artery is patent with antegrade flow. No evidence of hemodynamically significant stenosis in the right subclavian.Left Carotid: Findings are consistent with less than 50% stenosis of the left ICA. Left external carotid artery appears patent with no evidence of stenosis. The left vertebral artery is patent with antegrade flow.No evidence of hemodynamically significant stenosis in the left subclavian. Imaging AND Doppler Findings:Right Plaque Morph: The proximal right internal carotid artery demonstrates heterogenous and smooth plaque.Left Plaque Morph: The proximal left internal carotid artery demonstrates heterogenous plaque. Right Left PSV EDV PSV EDV82 cm/s CCA P 120 cm/s78 cm/s CCA D 102 cm/s98 cm/s 20 cm/s ICA P 79 cm/s 24 cm/s63 cm/s 18 cm/s ICA D 73 cm/s 21 cm/s146 cm/s ECA 120 cm/s37 cm/s Vertebral 48 cm/s160 cm/s Subclavian 206 cm/s Right LeftICA/CCA Ratio 1.3 0.8 [id number] Olesya Fall MD Final Normal [facility] VASC LAB PVR (Arterial Physi ologic) ABIon 03-20-2018 VASC LAB PVR (Arterial Physiologic) [facility], [address] [place], [place] [id number] and Vascular Lab Report PVR [facility] Patient Name: DON ELKINS Zaid Physician: [id number] Olesya Fall MDStudy Date: 03/20/2018 Referring Physician: [id number] Calderon MDMRN/PID: [id number] PCP:Accession/Order#: [id number] CC Report to:Date of : 1950 Technologist: Jasvir Owens RVTGender: Cristhian Technologist 2:Admission Status: Inpatient Location Performed: [facility] Diagnosis/ICD: I24.8-Cardiac Ischemia;Z01.818-Encounter for other preprocedural examinationProcedure/CPT: 36625 Peripheral artery BROOKS Only-44638 CONCLUSIONS:Right Upper PVR: Baseline indices less than 0.80 and waveforms appear abnormal. Clinical correlation is advised. Incomplete palmar arch with good collaterals.Left Upper PVR: Baseline indices > 0.80 and waveforms appear normal. Incomplete palmar arch with good collaterals. Imaging AND Doppler Findings: RIGHT Digit Pressures % DropThumb 112 mmHg ThumbThumb w/ comp 90 mmHg 20 % LEFT Digit Pressures % DropThumb 129 mmHg ThumbThumb w/ comp 95 mmHg 26 % Right LeftBrachial Pressure 146 mmHg 143 mmHg [id number] Fall MD Final Normal [facility] VASC LAB PVR (Arterial Physiologic) [facility], [address] [place], [place] [id number] and Vascular Lab Report PVR [facility] Patient Name: DON ELKINS Reading Physician: [id number] Olesya Fall MDStudy Date: 03/20/2018 Referring Physician: [id number] Mor Calderon MDMRN/PID: [id number] PCP:Accession/Order#: [id number] CC Report to:Date of : 1950 Technologist: Jasvir LAYNETGender: Cristhian Technologist 2:Admission Status: Inpatient Location Performed: [facility] Diagnosis/ICD: I73.9-Peripheral vascular disease, unspecified;I24.8-Cardiac Ischemia;Z01.818-Encounter for other preprocedural examinationProcedure/CPT: 35328 Peripheral artery BROOKS Only-38004 CONCLUSIONS:Right Lower PVR: No evidence of arterial occlusive disease in the right lower extremity at rest. Biphasic flow is noted in the right posterior tibial artery. Triphasic flow is noted in the right common femoral artery and right dorsalis pedis artery.Left Lower PVR: No evidence of arterial occlusive disease in the left lower extremity at rest. 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 Triphasic flow is noted in the left dorsalis pedis artery, left posterior tibial artery and left common femoral artery. Imaging & Doppler Findings: RIGHT Lower PVR Pressures RatiosRight Posterior Tibial (Ankle) 142 mmHg 0.97Right Dorsalis Pedis (Ankle) 139 mmHg 0.95 LEFT Lower PVR Pressures RatiosLeft Posterior Tibial (Ankle) 178 mmHg 1.22Left Dorsalis Pedis (Ankle) 255 mmHg 1.75 Right LeftBrachial Pressure 146 mmHg 145 mmHg [id number] Olesya Fall MD Final Normal [facility] VASC LAB Pre-op Vessel Vein Mappingon 03-20-2018 VASC LAB Pre-op Vessel Vein Mapping [facility], [address] [place] [address] and Vascular Lab Report Pre-op Vein Mapping Lower Patient Name: DON ELKINS Zaid Physician: [id number] Olesya Fall MDStudy Date: 03/20/2018 Referring Physician: [id number] MANRIQUEZRN/PID: [id number] PCP:Accession/Order#: [id number] CC Report to:Date of : 1950 Technologist: Jasvir Mckoy: Cristhian Technologist 2:Admission Status: Inpatient Location Performed: [facility] Diagnosis/ICD: Z01.818-Encounter for other preprocedural examination;I24.8-Cardiac IschemiaProcedure/CPT: 60035 Vein mapping complete-42147 CONCLUSIONS:Left Lower Vein Mapping: The left great saphenous vein appears widely patent with no evidence of thrombosis or fibrosis.Right Lower Vein Mapping: The right great saphenous vein appears widely patent with no evidence of thrombosis or fibrosis. Imaging AND Doppler Findings: Right Compress Thrombus DiamSFJ Yes None 4.6 mmProx Thigh GSV Yes None 3.6 mmMid Thigh GSV Yes None 2.8 mmDist Thigh GSV Yes None 3.4 mmProx Calf GSV Yes None 3.5 mmMid Calf GSV Yes None 1.4 mmDist Calf GSV Yes None 1.5 mmSSV Prox FibroticSSV Mid FibroticSSV Distal Fibrotic Left Compress Thrombus DiamSFJ Yes None 6.4 mmProx Thigh GSV Yes None 5.3 mmMid Thigh GSV Yes None 3.3 mmDist Thigh GSV Yes None 3.8 mmProx Calf GSV Yes None 3.5 mmMid Calf GSV Yes None 2.0 mmDist Calf GSV Yes None 2.4 mmSSV Prox FibroticSSV Mid FibroticSSV Distal Fibrotic [id number] Olesya Fall MD Final Normal [facility] ARTERIAL BLOOD GASon 018 BASE EXCESS-BLOOD -0.5 mmol/L Normal -2.0 - 3.0 [facility] Comment on above: Performed By: #### E MRAD ####NO LOCATION NEEDED Oxygen ppres (BldA) 79 mm[Hg] Low 85 - 95 [facility] Comment on above: Performed By: #### E MRAD ####NO LOCATION NEEDED PCO2 39 mmHg Normal 38 - 42 [facility] Comment on above: Performed By: #### E MRAD ####NO LOCATION NEEDED pH (Bld) 7.40 [pH] Normal 7.38 - 7.42 [facility] Comment on above: Performed By: #### E MRAD ####NO LOCATION NEEDED RBC Auto #/vol (Bld) 24.2 mmol/L Normal 22.0 - 26.0 [facility] Comment on above: Performed By: #### E MRAD ####NO LOCATION NEEDED SO2 96 % Normal 94 - 100 [facility] Comment on above: Performed By: #### E MRAD ####NO LOCATION NEEDED ARTERIAL H+Hon 03-19-2018 Hematocrit Auto Volume Fraction (Bld) 41.0 % Normal 41.0 - 52.0 [facility] Comment on above: Performed By: #### H HNA1 ####[id number] [place] [address] HGB,CALCULATED 13.9 g/dL Normal 13.5 - 17.5 [facility] Comment on above: Performed By: #### H HNA1 ####[id number] [id number] ARTERIAL POTASSIUMon 018 Potassium molar conc 3.7 mmol/L Normal 3.5 - 5.3 [facility] Comment on above: Performed By: #### P OTGA ####[id number] [id number] Admission Risk Screen - Adul ton 03-19-2018 Admission Risk Screen - Adult Allergies: Allergies: No Known Allergies: Patient Verification: New W ID Band Applied in my Departmentyes Patient Identity Verified Bydriver's license/state ID ID Band FULL Name, include Middle, spelling matches patient's ID used forverificationyes ID Band Matches Patient ID used for Verficationyes ID Band MRN Matches EMR MRLynn Advance Directive: Advance Directive Medicalyes Advance Directive typeLiving Will, Durable Power of Transplant Surgeon for Healthcare Living Will AvailabilityLiving Will not available now Living Will [id number] Durable Power of Transplant Surgeon AvailabilityDPOA not available now Durable Power of Transplant Surgeon [id number] Durable Power of Transplant Surgeon contact (name and number)Rikki Cotton Screen:Type of AssessmentadmissionModerate Risk Factorspatient care equipment (scds, ivs, chest tubes, her,etc)Risk for Injury Associated with Fallcoagulation blood thinners (Coumadin,heparin gtt), coagulopathyFall Risk Conclusionmoderate falls risk with risk for associated injuryUniversal Safety InterventionsWDL *orient to call system *instruct to call forassistance before getting out of bed *non-slip footwear when patient is out ofbed *call brown in reach *personal items and telephone in reach *physically safeenvironment (no spills or clutter) *bed in lowest position with wheels locked*appropriate side rails in place *room/bathroom lighting operational, lightcord in reach *appropriate signage on doorFall and Injury Risk Interventionsbed alarm refused, collaborate with team forPT/OT consult/ambulatory aids, educate pt/family, monitor med side effects,consult Pharmacy, if orthostatic, encourage patient to sit on the edge of thebed before standing, educate patient/family for risk for injury (fractures andbleeding) Family Violence Screen: Are you or have you been threatened or abused physically, emotionally, orsexually by anyoneno Do you feel UNSAFE going back to the place where you are livingno Clinical assessment: Are there any apparent signs of injuries/behaviors thatcould be related to abuse/neglectno Social Service Consult for abuse/neglect needed this visitno Functional screen: Functional Screen: In the recent/past 2-4 weeks, patient or family havenoticedno issues that require a rehabilitation consult at this time Learning Assessment (Patient): Patient is Able to be Assessed for Learningyes Factors Influencing Readiness to Learnacuteness of illness Factors that Impact Ability to Learnlearning disabilities, visual problems,memory Devices/Methods Used to Communicateglasses Learning Preferencesskill demonstration Cultural Considerationsnone Developmental Considerationsnone Orthodoxy Considerationsnone Learning Assessment (Other Learner): Other learner availableno Suicide/Depression Screen: During the past month, have you often been bothered by feeling down,depressed or hopelessno During the past month, have you often had little interest or pleasure indoing thingsno Have you had any thoughts of harming yourselfno Have you had any thoughts of harming anyone elseno Adult Nutrition Screen: Have you recently lost weight without tryingno Have you been eating poorly because of a decreased appetiteno MST Score0 RiskMST = 0 or 1 Not at risk. Eating well with little or no weight loss Nutrition Consult needed this visitno Can Patient Participate in Room Serviceyes Patient requires Paper Dishes/Plastic Utensilsno Pain Screen: Pain Scalenumerical 0-10 Pain Scale Educationteaching provided Current Pain Level0 = None Acceptable Pain Level1 = Mild Expression of Pain (nonverbal)moaning Chronic Painyes Usual Pain Rating at Rest0 Usual Pain Rating with Activity7 Chronic Back pain locationback Spiritual Screen: Are there any cultural, spiritual, jainism practices/values/needs that areimportant for us to knowno CAGE:Is this an [place] patient at a Tra[place] Center [place] [place] [facility] no Vaccinations:Vaccination - Influenza Vaccination Screen: Is it flu season (between and )Yes Screening for identified contraindications to influenza vaccinationnocontraindications identified Influenza vaccine indicatedyes Vaccination - Pneumonia Vaccination Screen: Patient has received a previous pneumonia vaccine:yes Prudencio:Skin - Prudencio Scale: Prudencio: Sensory Perception (response to environment)(3) slightly limited Prudencio: Moisture (degree skin exposed to moisture)(4) rarely moist Prudencio: Activity (ability to walk)(3) walks occasionally Prudencio: Mobility (amount/control of body movement)(4) no limitation Prudencio: Nutrition (quality of food intake)(3) adequate Prudencio: Friction and Shear(3) no apparent problem Prudencio: Score20 Significant Indicatiors:Significant Indicators: Complete Pressure Injury:Pressure Injury Present on Admissionno Electronic Signatures:Jeannie Shelton (ANDREA) (Signed 19-Mar-2018 00:38)Authored: Admission Risk Screens, Vaccinations, Prudencio, Pressure Injury Last Updated: 19-Mar-2018 00:38 by Jeannie Shelton (ANDREA) Normal [facility] BN ORTHOPANTOGRAMon 03-19-20 18 BN ORTHOPANTOGRAM Name: DON ELKINS STUDY:BN ORTHOPANTOGRAM; 03/19/2018 12:56 pm INDICATION:Signs/Symptoms: tooth pain, s/p recent root canal, pre op CABG [id number]. COMPARISON:None. ORDERING CLINICIAN:VITO PATINO TECHNIQUE:ORTHOPANTOGRAM FINDINGS:Suspected dental caries right maxillary premolar. No other suspiciouslucency seen. Dental amalgam noted. IMPRESSION: Suspected periapical abscess right maxillary premolar.Electronically signed by: SULMA FLOR MD Normal [facility] CBCon 03-19-2018 Erythrocyte distribution width Auto Ratio (RBC) 13.0 % Normal 11.5 - 14.5 [facility] Comment on above: Performed By: #### C BC ####[id number] [place] [address] Hematocrit Auto Volume Fraction (Bld) 39.6 % Low 41.0 - 52.0 [facility] Comment on above: Performed By: #### C BC ####[id number] [place] [address] Hemoglobin mass conc (Bld) 13.4 g/dL Low 13.5 - 17.5 [facility] Comment on above: Performed By: #### C BC ####[id number] [place] [address] MCHC Auto mass conc (RBC) 33.8 g/dL Normal 32.0 - 36.0 [facility] Comment on above: Performed By: #### C BC ####[id number] [place] [address] MCV Auto Entitic volume (RBC) 92 fL Normal 80 - 100 [facility] Comment on above: Performed By: #### C BC ####[id number] [place] [address] Nucleated RBC/100 WBC Ratio (Bld) 0.0 /100 WBC Normal 0.0-0.0 [facility] Comment on above: Performed By: #### C BC ####[id number] [place] [address] Platelets Auto #/vol (Bld) 259 10*3/uL Normal 150 - 450 [facility] Comment on above: Performed By: #### C BC ####[id number] [place] [address] RBC Auto #/vol (Bld) 4.32 x10E12/L Low 4.50 - 5.90 [facility] Comment on above: Performed By: #### C BC ####[id number] [place] [address] WBC Auto #/vol (Bld) 10.8 10*3/uL Normal 4.4 - 11.3 [facility] Comment on above: Performed By: #### C BC ####[id number] [place] [address] Erythrocyte distribution width Auto Ratio (RBC) 13.0 % Normal 11.5 - 14.5 [facility] Comment on above: Performed By: #### C BC ####[id number] [place] [address] Hematocrit Auto Volume Fraction (Bld) 42.4 % Normal 41.0 - 52.0 [facility] Comment on above: Performed By: #### C BC ####[id number] [place] [address] Hemoglobin mass conc (Bld) 14.7 g/dL Normal 13.5 - 17.5 [facility] Comment on above: Performed By: #### C BC ####[id number] [place] [address] MCHC Auto mass conc (RBC) 34.7 g/dL Normal 32.0 - 36.0 [facility] Comment on above: Performed By: #### C BC ####[id number] [place] [address] MCV Auto Entitic volume (RBC) 91 fL Normal 80 - 100 [facility] Comment on above: Performed By: #### C BC ####[id number] [place] [address] Nucleated RBC/100 WBC Ratio (Bld) 0.2 /100 WBC Normal 0.0-0.0 [facility] Comment on above: Performed By: #### C BC ####[id number] [place] [address] Platelets Auto #/vol (Bld) 282 10*3/uL Normal 150 - 450 [facility] Comment on above: Performed By: #### C BC ####[id number] [place] [address] RBC Auto #/vol (Bld) 4.68 x10E12/L Normal 4.50 - 5.90 [facility] Comment on above: Performed By: #### C BC ####[id number] [place] [address] WBC Auto #/vol (Bld) 12.7 10*3/uL High 4.4 - 11.3 [facility] Comment on above: Performed By: #### C BC ####[id number] [place] [address] COAGULATION SCREENon 018 aPTT Coag time (Bld) 31 s Normal 28 - 38 [facility] Comment on above: Result Comment: Note new reference range as of 03/10/2018. THE APTT IS NO LONGER USED FOR MONITORING UNFRACTIONATED HEPARIN THERAPY. FOR MONITORING HEPARIN THERAPY, USE THE HEPARIN ASSAY. Performed By: #### C OAGS ####[id number] [id number] INR Coag RelTime (PPP) 1.4 {INR} High 0.9 - 1.1 [facility] Comment on above: Performed By: #### C OAGS ####[id number] [id number] Prothrombin time (PT) Coag time (PPP) 16.1 s High 9.7 - 12.7 [facility] Comment on above: Result Comment: Note new reference range as of 03/10/2018. Performed By: #### C OAGS ####[id number] [place] [address] COOX PANEL, ARTERIALon 03-19 DEOXY HGB 3.7 % Normal 0.0 - 5.0 [facility] Comment on above: Performed By: #### C OOXA ####[id number] [place] [address] Hemoglobin mass conc (Bld) 1.1 % Normal [facility] Comment on above: Result Comment: REF VALUESNONSMOKERS 0.5-1.5%SMOKERS 0.5-10.0% Performed By: #### C OOXA ####[id number] [place] [address] Hemoglobin mass conc (Bld) 14.9 g/dL Normal 13.5 - 17.5 [facility] Comment on above: Performed By: #### C OOXA ####[id number] [place] [address] MET HGB 1.2 % Normal 0.0 - 1.5 [facility] Comment on above: Performed By: #### C OOXA ####[id number] [place] [address] OXY HGB 93.9 % Low 94.0 - 98.0 [facility] Comment on above: Performed By: #### C OOXA ####[id number] [id number] Clinical Event Note-STS Scor e - Cardiac Surgeryon 03-19-2018 Clinical Event Note-STS Score - Cardiac Surgery Event:Topic: STS Score - Cardiac SurgeryDetails:Procedure: CAB OnlyRisk of Mortality: 1.006%Morbidity or Mortality: 13.941%Long Length of Stay: 4.79%Short Length of Stay: 47.443%Permanent Stroke: 0.962%Prolonged Ventilation: 8.167%DSW Infection: 0.651%Renal Failure: 5.562%Reoperation: 4.472% Provider / Team Contact Information:Provider/Team Contact Info-Pager Number: [phone] cardiac surgery Electronic Signatures:Herminia Kern (PAC) (Signed 19-Mar-2018 18:40)Authored: Event, Provider / Team Contact Information Last Updated: 19-Mar-2018 18:40 by Herminia Kern (PAC) Normal [facility] Consult-Cardiac Surgeryon Consult-Cardiac Surgery Service:Service: Cardiac Surgery Consult:Consult requested by (Attending Name): Dr. Mor Woo: CAD; CABG eval History of Present Illness:Admission Reason: Transferred for CABG evalHPI:PCP: Sal Hernandez (jaleesa) - Levi Sinha: [place] 67 yo WM with no known history of CAD, who has a past medical history of HTN,HLD, T2DM, [facility]'s disease, hypothyroidism, COPD, AKASH on CPAP, prostate spring/p prostatectomy in 2011, and psoriasis who [facility] for CABG eval. Patient reports 2 month h/o intermittent exertional left sided chest painlasting less than 30 min, relieved with rest, with no other associatedsymptoms. He woke up 03/16 at 1AM with chest pressure associated with dyspnea,and his took him to [facility] where he was diagnosed withbilateral PEs, started on heparin gtt, then transferred to [facility]. There, hewas found to have a trop leak which peaked at 2.25, with no EKG changes (NSRwith no Q, T or ST waves/segment abnormalities). Bedside US was negative forDVT. Cardiology Dr Levi Pisano was consulted. TTE and LHC/cors wereperformed, see below for details. Patient was diagnosed with NSTEMI, andmultivessel CAD and transferred to for CABG evaluation.Prior to transport to , patient received 10 mg Eliquis because ambulance wasnot allowed to run a heparin gtt. On arrival to , patient was asymptomatic, chest pain free, on room air withno breathing complaints. He denied any recent travels, immobilization, abnormalclotting or bleeding history. He denied any palpitations, diaphoresis, nearsyncope associated with his prior chest discomfort episodes. He reports afamily history significant for Stoke, DC, CHF, HTN, DM and DLD. He quit cberyew22 years ago. Has an occasional beer, and denies any drug use. 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 Cardiac surgery consulted 03/19 for CABG eval. Pt currently asymptomatic andhemodynamically stable. 12 points ROS obtained and negative unless otherwise stated above Outside Hospital cardiac work up:CTA at [place]:Pulmonary emboli involving the bilateral lobar segmental, and severalsubsegmental branches (RUL, RML, RLL, FIDEL, LLL). LHC/cors at [facility] 03/16/18: by Levi KirnusLM: 10-20%LAD prox: 30%LAD mid: 95%Diag 3rd: 99%RCA: 85 %PLV: 50%Circ: 95% TTE at [facility] 03/15/18:EF 60-65%Mild concentric LVHLV wall motion is normalMild LA dilationpseudonormalized LV relaxation, which is associated with grade II/IV or mild tomoderate diastolic dysfunctionMild aortic regurgitation PMH: HTN, HLD, T2DM, [facility]'s disease, hypothyroidism, COPD, AKASH on CPAP,prostate ca s/p prostatectomy in 2011, psoriasis, remote hepatitis B, priorGERD, lumbar Degenerative disk disease, arthritis, kidney stones (current,small), cataract, plantar fasciitis PSH: prostatectomy 2011, R cataract surgery, cholecystectomy, appendectomy,sinus surgery, vasectomy, bilat carpal tunnel release surgery, ganglion cystremoval from hands, cystoscopy 2 weeks ago for microscopic hematuria, rootcanal 2 weeks ago. FHx: CAD/DC, cancer, DM, HTN, migraines, CVA Social: former smoker - quit 20yrs ago; occasional ETOH, no illicits; liveswith spouse in a house NKDA Preadmission Home Meds:asa 81mg dailycalcium 600+ D3 1 tab dailycitalopram 20mg dailycoenzyme Q10 100mg dailyfludrocortisone 0.1mg dailyhydrocortisone 20mg BIDibuprofen 600mg BIDlevothyroxine 150mcg dailylisinopril 20mg dailymetformin 500mg BIDMV dailyOmega-3 fatty acids fish oil 1 cap dailyomeprazole 40mg dailyropinirole 8mg dailysimvastatin 20mg daily Review Family/Social History and ROS: Review Family/Social History and ROS: I have reviewed the family and social history and review of systems from theHistory and Physical. Family History:Bleeding Disorder: noCancer: yesCAD: yesDiabetes: yesHypertension: yesStroke: yesVTE: no Social History: Smoking Status: former smokerAlcohol Use: occasionallyDrug Use: denies Constitutional: NEGATIVE: Fever, Chills, Anorexia, Weight Loss, Malaise Eyes: NEGATIVE: Blurry Vision, Drainage, Diploplia, Redness, Vision Loss/Change ENMT: NEGATIVE: Nasal Discharge, Nasal Congestion, Ear Pain, Mouth Pain, ThroatPain Respiratory: NEGATIVE: Dry Cough, Productive Cough, Hemoptysis, Wheezing,Shortness of Breath Cardiac: NEGATIVE: Chest Pain, Dyspnea on Exertion, Orthopnea, Palpitations,Syncope Gastrointestinal: NEGATIVE: Nausea, Vomiting, Diarrhea, Constipation, AbdominalPain Genitourinary: NEGATIVE: Discharge, Dysuria, Flank Pain, Frequency, Hematuria Musculoskeletal: POSITIVE: Pain, Stiffness; NEGATIVE: Decreased ROM, Swelling,Weakness; COMMENTS: of back Neurological: NEGATIVE: Dizziness, Confusion, Headache, Seizures, Syncope Psychiatric: NEGATIVE: Mood Changes, Anxiety, Hallucinations, Sleep Changes,Suicidal Ideas Skin: NEGATIVE: Mass, Pain, Pruritus, Rash, Ulcer; COMMENTS: psoriasiselbows/knees Endocrine: NEGATIVE: Heat Intolerance, Cold Intolerance, Sweat, Polyuria,Thirst Hematologic/Lymph: NEGATIVE: Anemia, Bruising, Easy Bleeding, Night Sweats,Petechiae Allergic/Immunologic: NEGATIVE: Anaphylaxis, Itchy/ Teary Eyes, Itching,Sneezing, Swelling Breast: NEGATIVE: Pain, Mass, Discharge, Nipple Itching, Gynecomastia All Other Systems: All other systems reviewed and are negative Allergies: No Known Allergies: Objective: Objective Information: T [id number]/8396% Date/Time03/19 3: 3: 3: 3: 3:42Range(36.6C - 36.6C ) (79 - 79 ) (20 - 20 ) (149 - 173 )/ (83 - 92 ) (96%- 97% ) Pain with Activity reported at 03/19 0:25: 0Pain at Rest reported at 03/19 0:25: 0 Hkiuchu68/1 0:14: Weight in kg (Weight (kg)) 109.311/1 0:14: Weight in lbs ((lbs)) 48917/1 0:14: BMI (kg/m2) (BMI (kg/m2)) 36.646 Physical Exam: Constitutional: Well developed, awake/alert/oriented x3, no distress, alert andcooperativesitting on edge of bedEyes: sclera clearENMT: mucous membranes moist, no apparent injury, no lesions seenHead/Neck: Neck supple, No JVD, trachea midline, no bruitsRespiratory/Thorax: nonlabored; CTAsternum stableon room air; patient's own CPAP machine is in roomCardiovascular: RRR; no M/R/G; TELE - SR 80sGastrointestinal: obese; soft; NT/ND; BS+Genitourinary: voiding per urinal; no dysuriaMusculoskeletal: MAEExtremities: PP+1 BLE; no edema; well perfused; mild varicose veinsNeurological: awake; A&Ox4; no focal defPsychological: Appropriate mood and behaviorSkin: pink, warm, and drybilat elbow, bilat Knee R>L psoriasis plaques Medications: Medications: Continuous Medications --1. Heparin 25,000 units/ D5W 250 mL Infusion: 1000 units/hr IntraVenous Scheduled Medications --1. Aspirin Chewable: 81 mg Oral Daily2. Atorvastatin: 40 mg Oral Daily3. Carvedilol: 6.25 mg Oral 2 Times a Day4. Citalopram: 20 mg Oral Daily5. Docusate 50 mg - Senna 8.6 m tablet(s) Oral 2 Times a Day6. Fludrocortisone: 0.1 mg Oral Daily7. Heparin (Repeat Bolus) Injectable: 4000 unit(s) IntraVenous Push Every 1Kphjm8. Hydrocortisone: 20 mg Oral 2 Times a Day9. Insulin Lispro Mild Corrective Scale: unit(s) SubCutaneous 3 Times a DayBefore Meals10. Levothyroxine: 150 microgram(s) Oral Daily11. Pantoprazole: 40 mg Oral Daily12. Polyethylene Glycol: 17 gram(s) Oral Daily13. rOPINIRole: 2 mg Oral 3 Times a Day PRN Medications --1. Dextrose 50% in Water Injectable: 25 gram(s) IntraVenous Push Every 43Evbykal4. Glucagon Injectable: 1 mg IntraMuscular Every 15 Minutes Recent Lab Results: Results: I have reviewed these laboratory results: Complete Blood Count 19-Mar-2018 00:39:00 ResultValueWhite Blood Cell Count 12.7 HNucleated Erythrocyte Count 0.2Red Blood Cell Count 4.68HGB 14.7HCT 42.4MCV 91MCHC 34.7PLT 282RDW-CV 13.0 Renal Function Panel 19-Mar-2018 00:39:00 ResultValueGlucose, Serum 206 HNA 138K 4.1CL 102Bicarbonate, Serum 23Anion Gap, Serum 17BUN 23CREAT 1.42 HGFR-Non 50 AGFR- 61Calcium, Serum 9.2Phosphorus, Serum 3.5ALB 4.1 Coagulation Screen 19-Mar-2018 00:39:00 ResultValueProthrombin Time, Plasma 16.1 HInternational Normalized Ratio, Plasma 1.4 HActivated Partial Thromboplastin Time 31 Lipid Panel 19-Mar-2018 00:39:00 ResultValueCholesterol, Serum 155 . AGE DESIRABLE BORDERLINE HIGH HIGH 0-19 Y 0 - 169 170 - 199 >/= 200 20-24 Y 0 - 189 190 - 224 >/= 225 >24 Y 0 - 199 200 - 239 >/= 240 All ranges are based on fasting sampHDL Cholesterol, Serum 44.5 . AGE VERY LOW LOW NORMAL HIGH 0-19 Y < 35 < 40 40-45 ---- 20-24 Y ---- < 40 >45 ---- >24 Y ---- < 40 40-60 >60.Cholesterol/HDL Ratio 3.5 REF VALUESDESIRABLE < 3.4HIGH RISK > 5.0LDL, Level 82 . NEAR BORD AGE DESIRABLE OPTIMAL HIGH HIGH VERY HIGH 0-19 Y 0 - 109 --- 110-129 >/= 130 ---- 20-24 Y 0 - 119 --- 120-159 >/= 160 ---- >24 Y 0 -VLDL, Serum 28Triglycerides, Serum 141 . AGE DESIRABLE BORDERLINE HIGH HIGH VERY HIGH 0 D-90 D 19 - 174 ---- ---- ----91 D- 9 Y 0 - 74 75 - 99 >/= 100 ---- 10-19 Y 0 - 89 90 - 129 >/= 130 ---- Thyroid Stimulating Hormone, Serum 19-Mar-2018 00:39:00 ResultValueThyroid Stimulating Hormone, Serum 2.51 Radiology Results: Results:I have reviewed this radiology result: Impression:Suspected periapical abscess right maxillary premolar. Xray Orthopantogram [Mar 19 2018 3:30PM] Conclusion: 1. The left ventricular systolic function is normal with a 60-65% estimatedejection fraction. 2. Spectral Doppler shows an impaired relaxation pattern of left ventriculardiastolic filling. Echocardiogram [Mar 19 2018 2:30PM] Impression:1. No radiographic evidence of acute cardiopulmonary process. Xray Chest 2 View PA + Lateral [Mar 19 2018 2:19PM] Impression:1. No radiographic evidence of acute cardiopulmonary process. Xray Chest 1 View [Mar 19 2018 9:20AM] OUTSIDE HOSPITALCTA at [place]:Pulmonary emboli involving the bilateral lobar segmental, and severalsubsegmental branches (RUL, RML, RLL, FIDEL, LLL). LHC/cors at [facility] 03/16/18: by Levi PisanoLM: 10-20%LAD prox: 30%LAD mid: 95%Diag 3rd: 99%RCA: 85 %PLV: 50%Circ: 95% TTE at [facility] 03/15/18:EF 60-65%Mild concentric LVHLV wall motion is normalMild LA dilationpseudonormalized LV relaxation, which is associated with grade II/IV or mild tomoderate diastolic dysfunctionMild aortic regurgitation Assessment:67 yo WM with no priorhistory of CAD, who has a past medical history of HTN,HLD, T2DM, [facility]'s disease, hypothyroidism, COPD, AKASH on CPAP, prostate spring/p prostatectomy in 2011, and psoriasis [facility] on [facility]/18 for CABG eval. Ptpresented to [place] with chest pressure and dyspnea. He as found to havebilat PEs, was started on Heparin gtt, and transferred to [facility]. He wasfound to have a troponin leak at 2.25. Cardiology was consulted and the patientwas diagnosed with ACS, NSTEMI. He underwent a TTE and cath. He had normal EF,mild AI, and triple vessel CAD so was transferred [facility] for CABG eval. Cardiac surgery consulted 03/19 for CABG eval. Pt currently asymptomatic andhemodynamically stable. Dr. Gaston is aware of patient. He plans to see patient on Tuesday 03/20. He isreviewing available films. Plan- OR planned for next week Friday 03/23- preop orders/blood in EMR- [employer]- due to recent dental work- No ACEi/ARB's in the preoperative period- No antiplatelets except for 81mg aspirin- Shut heparin drip off office coordinator receptionist to OR- Please start or continue beta danica; If unable to tolerate beta blockerplease document reason- please consult Endocrine d/t Brigida's disease- please consult Pulmonary for PE workup Thank you for the consultation. Please call [phone] with any questions or changesin patient condition. Signature/Cosignature/Attestat ion:Provider/Team Contact Info-Pager Numbercardiac surgery [phone] Electronic Signatures:Mary [place] ([facility]) (Signed 19-Mar-2018 18:21)Authored: Service, History of Present Illness, Review Family/Social Historyand ROS, Objective, Assessment/Recommendations,Sig nature/Cosignature/Attestation Kyle Arechiga ([facility]) (Signed 19-Mar-2018 08:17)Authored: Service, Allergies, Objective, Assessment/Recommendations Last Updated: 19-Mar-2018 18:21 by Mary [place] ([facility]) Normal [facility] DRUG SCREEN,PAIN MANAGEMENT W/ REFLEXon 03-19-2018 AMPHETAMINE SCREEN,U Negative Normal NEGATIVE [facility] Comment on above: Result Comment: CUTO FF LEVEL: 500 NG/ML Cross-reactivity has been reported with high concentrations of the following drugs: buproprion, chloroquine, chlorpromazine, ephedrine, mephentermine, fenfluramine, phentermine, phenylpropanolamine, pseudoephedrine, and propranolol. Performed By: #### D SPMR ####[id number] [place] [address] BARBITURATES SCREEN,U Negative Normal NEGATIVE [facility] Comment on above: Result Comment: CUTO FF LEVEL: 200 NG/ML Performed By: #### D SPMR ####[id number] [place] [address] BENZODIAZEPINES SCREEN,U Negative Normal NEGATIVE [facility] Comment on above: Result Comment: CUTO FF LEVEL: 200 NG/MLBenzodiazepine Confirmatory testing has been sent to a reference laboratoryand will be reported separately. Although the benzodiazepine screening testprovides rapid results; the confirmatory test provide the most sensitive andspecific assessment of drug presence or absence in the urine. Performed By: #### D SPMR ####[id number] [place] [address] CANNABINOIDS SCREEN,U Negative Normal NEGATIVE [facility] Comment on above: Result Comment: CUTO FF LEVEL: 50 NG/ML Performed By: #### D SPMR ####[id number] [place] [address] COCAINE METABOLITE SCREEN,U Negative Normal NEGATIVE [facility] Comment on above: Result Comment: CUTO FF LEVEL: 150 NG/ML Performed By: #### D SPMR ####[id number] [place] [address] DRUG SCREEN COMMENT. SEE BELOW Normal [facility] Comment on above: Result Comment: Drug screen results are presumptive and should not be used to assesscompliance with prescribed medication. Definitive confirmatory drug testinghas been added to this sample for any positive screen result and will bereported separately..Toxicology screening results are reported qualitatively. The concentrationmust be greater than or equal to the cutoff to be reported as positive. Theconcentration at which the screening test can detect an individual drug ormetabolite varies. The absence of expected drug(s) and/or drug metabolite(s)may indicate non-compliance, inappropriate timing of specimen collectionrelative to drug administration, poor drug absorption, diluted/adulteratedurine, or limitations of testing. For medical purposes only; not valid forforensic use..Interpretive questions should be directed to the laboratory medicaldirectors. Performed By: #### D SPMR ####[id number] [id number] METHADONE SCREEN,U Negative Normal NEGATIVE [facility] Comment on above: Result Comment: CUTO FF LEVEL: 150 NG/ML The metabolite B-ckwlo-oejooojcptfiqz (LAAM) is not detected by this method in concentrations that would be found in the urine of patients on LAAM therapy. Performed By: #### D SPMR ####[id number] [place] [address] OPIATES SCREEN,U Negative Normal NEGATIVE [facility] Comment on above: Result Comment: CUTO FF LEVEL: 300 NG/ML The opiate screen does not detect fentanyl, meperidine, or tramadol. Oxycodone is not consistently detected (refer to Oxycodone Screen, Urine result).Opiate/Oxycodone Confirmatory testing has been sent to a referencelaboratory and will be reported separately. Although the screening testsprovide rapid results; the confirmatory tests provide the most sensitive andspecific assessment of drug presence or absence in the urine. Performed By: #### D SPMR ####[id number] [place] [address] PCP SCREEN,U Negative Normal NEGATIVE [facility] Comment on above: Result Comment: CUTO FF LEVEL: 25 NG/ML Cross-reactivity has been reported with dextromethorphan. Performed By: #### D SPMR ####[id number] [id number] Daily Progress Note-Cardiosandra chavez 03-19-2018 Protein mass conc Service: Cardiology Subjective Data:DON ELKINS is a 67 year old Male who is Hospital Day # 2. Additional Information:Received from [facility] with PE and need for CABG eval, hypertensive - Heparin gtt- Stop Metoprolol- Start Carvedilol- Plan for OR with Dr. Gaston early next week Objective Data: Objective Information:T [id number]/8797% Date/Time03/19 13: 13: 13: 13: 13:27Range(36.6C - 37C ) (79 - 83 ) (16 - 20 ) (149 - 173 )/ (83 - 92 ) (95% -97% )Highest temp of 37 C was recorded at 03/19 8:29 Pain with Activity reported at 03/19 7:19: 0Pain at Rest reported at 03/19 7:19: 0 Arkxtox58/1 0:14: Weight in kg (Weight (kg)) 109.311/1 0:14: Weight in lbs ((lbs)) 80001/1 0:14: BMI (kg/m2) (BMI (kg/m2)) 36.646 Physical Exam: Constitutional: Resting in bed, NADHead/Neck: No JVDRespiratory/Thorax: CTABCardiovascular: RRR, S1 B0Gfyzimuvvcrikrec: soft, NT/NDExtremities: Right wrist site of catheterization intact, normal pulse. Noperipheral edemaNeurological: alert and oriented y9Owwlulxqbvncl: Appropriate mood and behaviorSkin: psoriasis plaque over elbows and knees Medication: Medications: Continuous Medications -- 1. Heparin 25,000 units/ D5W 250 mL Infusion: 1000 units/hr IntraVenous Scheduled Medications -- 1. Aspirin Chewable: 81 mg Oral Daily2. Atorvastatin: 40 mg Oral Daily3. Carvedilol: 6.25 mg Oral 2 Times a Day4. Citalopram: 20 mg Oral Daily5. Docusate 50 mg - Senna 8.6 m tablet(s) Oral 2 Times a Day6. Fludrocortisone: 0.1 mg Oral Daily7. Heparin (Repeat Bolus) Injectable: 4000 unit(s) IntraVenous Push Every 9Fgfne8. Hydrocortisone: 20 mg Oral 2 Times a Day9. Insulin Lispro Mild Corrective Scale: unit(s) SubCutaneous 3 Times a DayBefore Meals10. Levothyroxine: 150 microgram(s) Oral Daily11. Mupirocin 2%: 0.5 application(s) Each Nostril 2 Times a Day12. Pantoprazole: 40 mg Oral Daily13. Polyethylene Glycol: 17 gram(s) Oral Daily14. rOPINIRole: 2 mg Oral 3 Times a Day PRN Medications -- 1. Dextrose 50% in Water Injectable: 25 gram(s) IntraVenous Push Every 63Idtzdbb2. Glucagon Injectable: 1 mg IntraMuscular Every 15 Minutes Recent Lab Results: Results: I have reviewed these laboratory results: COOX Panel, Arterial 19-Mar-2018 14:32:00 ResultValueHGB 14.9Oxy Hgb, Arterial 93.9 LCO Hgb, Arterial 1.1Met Hgb, Arterial 1.2Deoxy Hgb, Arterial 3.7 Arterial Hemoglobin and Hematocrit 19-Mar-2018 14:32:00 ResultValueHCT 41.0HGB, Calculated 13.9 Arterial Potassium 19-Mar-2018 14:32:00 ResultValuePotassium-Level 3.7 Blood Gas, Arterial 19-Mar-2018 14:32:00 ResultValuepH, Arterial 7.40pCO2, Arterial 39pO2, Arterial 79 LPatient-Temperature 37.0SO2, Arterial 96Base Excess-Blood -0.5Bicarbonate, Calculated, Arterial 24.2 Glucose_POCT Trending View [id number] 13:58:00 19-Mar-2018 08:27:00Glucose-TGOQ474 H 172 H Drug Screen, Pain Management with Reflex if Positive 19-Mar-2018 10:09:00 ResultValueComments. SEE BELOW Drug screen results are presumptive and should not be usedto assesscompliance with prescribed medication. Definitive confirmatory drug testinghas been added to this sample for any positive screen result and will bereported separateAmphetamine Screen, Urine PRESUMPTIVE NEGATIVE CUTOFF LEVEL: 500 NG/ML Cross-reactivity has been reported with high concentrations of the following drugs: buproprion, chloroquine, chlorpromazine, ephedrine, mephentermine, fenfluramine, phentermine, phenylpropanolamineBarbiturate Screen, Urine PRESUMPTIVE NEGATIVE PRESUMPTIVE NEGATIVE CUTOFF LEVEL: 200 NG/MLBenzodiazepine Screen, Urine PRESUMPTIVE NEGATIVE CUTOFF LEVEL: 200 NG/MLBenzodiazepine Confirmatory testing has been sent to a reference laboratoryand will be reported separately. Although the benzodiazepine screening testprovides rapid results; the confirmatory test prCannabinoid Screen, Urine PRESUMPTIVE NEGATIVE PRESUMPTIVE NEGATIVE CUTOFF LEVEL: 50 NG/MLCocaine Metabolite Screen, Urine PRESUMPTIVE NEGATIVE PRESUMPTIVE NEGATIVE CUTOFF LEVEL: 150 NG/MLMethadone Screen, Urine PRESUMPTIVE NEGATIVE CUTOFF LEVEL: 150 NG/ML The metabolite Q-akxvx-izaizyidrbveoz (LAAM) is not detected by this method in concentrations that would be found in the urine of patients on LAAM therapy.Opiate Screen, Urine PRESUMPTIVE NEGATIVE CUTOFF LEVEL: 300 NG/ML The opiate screen does not detect fentanyl, meperidine, or tramadol. Oxycodone is not consistently detected (refer to Oxycodone Screen, Urine result).Opiate/Oxycodone Confirmatory testing has beenPCP Screen, Urine PRESUMPTIVE NEGATIVE CUTOFF LEVEL: 25 NG/ML Cross-reactivity has been reported with dextromethorphan. Urinalysis 19-Mar-2018 10:09:00 ResultValueColor, Urine YELLOW Reference Range: STRAW,YELLOWAppearance, Urine CLEARSpecific Hensley, Urine 1.013pH, Urine 6.0Protein, Urine NEGATIVEGlucose, Urine NEGATIVEBlood, Urine NEGATIVEKetones, Urine NEGATIVEBilirubin, Urine NEGATIVEUrobilinogen, Urine 2.0 HNitrite, Urine NEGATIVELeukocyte Esterase, Urine NEGATIVE Complete Blood Count 19-Mar-2018 00:39:00 ResultValueWhite Blood Cell Count 12.7 HNucleated Erythrocyte Count 0.2Red Blood Cell Count 4.68HGB 14.7HCT 42.4MCV 91MCHC 34.7PLT 282RDW-CV 13.0 Renal Function Panel 19-Mar-2018 00:39:00 ResultValueGlucose, Serum 206 HNA 138K 4.1CL 102Bicarbonate, Serum 23Anion Gap, Serum 17BUN 23CREAT 1.42 HGFR-Non 50 AGFR- 61Calcium, Serum 9.2Phosphorus, Serum 3.5ALB 4.1 Coagulation Screen 19-Mar-2018 00:39:00 ResultValueProthrombin Time, Plasma 16.1 HInternational Normalized Ratio, Plasma 1.4 HActivated Partial Thromboplastin Time 31 Lipid Panel 19-Mar-2018 00:39:00 ResultValueCholesterol, Serum 155 . AGE DESIRABLE BORDERLINE HIGH HIGH 0-19 Y 0 - 169 170 - 199 >/= 200 20-24 Y 0 - 189 190 - 224 >/= 225 >24 Y 0 - 199 200 - 239 >/= 240 All ranges are based on fasting sampHDL Cholesterol, Serum 44.5 . AGE VERY LOW LOW NORMAL HIGH 0-19 Y < 35 < 40 40-45 ---- 20-24 Y ---- < 40 >45 ---- >24 Y ---- < 40 40-60 >60.Cholesterol/HDL Ratio 3.5 REF VALUESDESIRABLE < 3.4HIGH RISK > 5.0LDL, Level 82 . NEAR BORD AGE DESIRABLE OPTIMAL HIGH HIGH VERY HIGH 0-19 Y 0 - 109 --- 110-129 >/= 130 ---- 20-24 Y 0 - 119 --- 120-159 >/= 160 ---- >24 Y 0 -VLDL, Serum 28Triglycerides, Serum 141 . AGE DESIRABLE BORDERLINE HIGH HIGH VERY HIGH 0 D-90 D 19 - 174 ---- ---- ----91 D- 9 Y 0 - 74 75 - 99 >/= 100 ---- 10-19 Y 0 - 89 90 - 129 >/= 130 ---- Thyroid Stimulating Hormone, Serum 19-Mar-2018 00:39:00 ResultValueThyroid Stimulating Hormone, Serum 2.51 Radiology Results: Results: Conclusion:CONCLUSIONS: 1. The left ventricular systolic function is normal with a 60-65% estimatedejection fraction. 2. Spectral Doppler shows an impaired relaxation pattern of left ventriculardiastolic filling.QUANTITATIVE DATA SUMMARY:2D MEASUREMENTS: Normal Ranges:LAs: 3.10 cm (2.7-4.0cm)IVSd: 1.84 cm (0.6-1.1cm)LVPWd: 0.96 cm (0.6-1.1cm)LVIDd: 3.51 cm (3.9-5.9cm)LVIDs: 2.33 cmLV Mass Index: 79.3 g/m2LV % FS 33.6 %LA VOLUME: Normal Ranges:LA Vol A4C: 42.8 ml (22+/-6mL/m2)LA Vol A2C: 36.3 mlLA Vol BP: 44.5 mlLA Vol Index A4C: 19.6ml/m2LA Vol Index A2C: 16.6 ml/m2LA Vol Index BP: 20.4 ml/m2LA Area A4C: 17.4cm2LA Area A2C: 14.2 cm2LA [place] A4C: 6.0 cmLA [place] A2C: 4.7 cmLA Volume Index: 15.2 ml/m2RA VOLUME BY A/L METHOD: Normal Ranges:RA Area A4C: 12.8 [id number] MEASUREMENTS: Normal Ranges:Ao Root: 2.90 cm (2.0-3.7cm)LAs: 3.80 cm (2.7-4.0cm)AORTA MEASUREMENTS: Normal Ranges:Ao Sinus, d: 3.45 cm (2.1-3.5cm)Ao STJ, d: 2.85 cm (1.7-3.4cm)Asc Ao, d: 3.40 cm (2.1-3.4cm)LV SYSTOLIC FUNCTIONBY 2D PLANIMETRY (MOD): Normal Ranges:EF-A4C View: 59.9 % (>55%)EF-A2C View: 66.3 %EF-Biplane: 63.4 %LV DIASTOLIC FUNCTION: Normal Ranges:MV Peak E: 0.60 m/s (0.7-1.2 m/s)MV Peak A: 0.71 m/s (0.42-0.7 m/s)E/A Ratio: 0.84 (1.0-2.2)MV e' 0.05 m/s (>8.0)MV lateral e' 0.05 m/sMV medial e' 0.05 m/sMV A Dur: 148.00 msecE/e' Ratio: 11.92 (<8.0)a' 0.14 m/sMV DT: 261 msec (150-240 msec)PulmV Sys Jeremiah: 51.80 cm/sPulmV Pablo Jeremiah: 29.80 cm/sPulmV S/D Jeremiah: 1.70PulmV A Revs Jeremiah: 31.50 cm/sPulmV A Revs Dur: 116.00 msecMITRAL VALVE: NormalRanges:MV DT: 261 msec (150-240msec)AORTIC VALVE: Normal Ranges:AoV Vmax: 1.02 m/s (<1.7m/s)AoV Peak P.2 mmHg (<20mmHg)LVOT Max Jeremiah: 0.87 m/s (<1.1m/s)LVOT VTI: 17.70 cmRIGHT VENTRICLE:RV 1 3.22 cmRV 2 2.33 cmRV 3 7.96 cmTAPSE: 19.1 mmRV s' 0.13 m/sTRICUSPID VALVE/RVSP: Normal Ranges:IVC Diam: 2.03 cmPULMONIC VALVE: Normal Ranges:PV Max Jeremiah: 1.0 m/s (0.6-0.9m/s)PV Max P.2 mmHgPulmonary Veins:PulmV A Revs Dur: 116.00 msecPulmV A Revs Jeremiah: 31.50 cm/sPulmV Pablo Jeremiah: 29.80 cm/sPulmV S/D Jeremiah: 1.70PulmV Sys Jeremiah: 51.80 cm/s Echocardiogram [Mar 19 2018 2:30PM] Impression: 1. No radiographic evidence of acute cardiopulmonary process. Xray Chest 2 View PA + Lateral [Mar 19 2018 2:19PM] Assessment and Plan:Assessment:67 yo M with HTN, DLD, T2DM, Addisson's, GERD, prostate ca s/p prostatectomy [id number], hypothyroidism, psoriasis, and most recently diagnosed with a PE andmultivessel CAD transferred to medicine at [facility] from [facility] on03/18 for CABG eval. PE- unprovoked subsegmental PE. Hemodynamically stable, not requiringsupplemental oxygen.- Repeat TTE in the AM to assess for Right heart strain- 2V CXR --> No radiographic evidence of acute cardiopulmonary process.- Consider Vascular medicine consult for hypercoagulability work up. Multivessel CAD- 03/19 TTE EF 60-65%, impaired relaxation- EKG without acute ST T wave changes- Hold LAUREN perioperatively- Starting Atorva 40 mg- Switch Metoprolol to Carvedilol for better BP control- Cardiac Cath disc in chart- Plan for CABG with Dr. Gaston early next week s/p recent root canal- orthopantogram T2DM- Holding home Metformin- SSI and hypoglycemia protocol- A1C pending- BS 174 Addission's disease- Continue home fludrocortisone and hydrocortisone GERD- Continue home PPI HTN- Holding LAUREN- 149/73 - 173/92 DLD- Atorva 40mg- lipids 155/44/82/141 HypothyroidismTSH 2.51- Continue home levothyroxine GI ppx: on PPICode status: Full Electronic Signatures:Vito Patino (LOAN SERVICES PROFESSIONAL-REPLANTER) (Signed 19-Mar-2018 15:16)Authored: Service, Subjective Data, Objective Data, Assessment and Plan,Signature/Cosignature/Att Mor Vasquez) (Signed 19-Mar-2018 15:57)Co-Signer: Service, Subjective Data, Objective Data, Assessment and Plan,Signature/Cosignature/Att estation Last Updated: 19-Mar-2018 15:57 by Mor Calderon) Normal [facility] Discharge Planning Noteon Discharge Planning Note Discharge Needs Assessment: Discharge Planning Assessment [id number] Discharge Planning Assessment Completed byClarisa Villalobos RN Care [phone] Readmission Within the Last 30 Daysno previous admission in last 30 days [facility] Phys[facility] Patient Learning: Factors that Impact Ability to Learnlearning disabilities, visualproblems(1) Other Factors: Functional Screen: In the recent/past 2-4 weeks, patient or family havenoticedno issues that require a rehabilitation consult at this time(2) Discharge Planning:Discharge Plannin03/19/18 0648: Patient admitted to LT[facility] from [facility] with 4x vesselblockage and CABG consult. recent partial root canal begun this past Fridaybut no permanent cap placed yet. Patient lives at home with and pets. Nolines or drips on admission, will restart heparin at 0900 this morning, patientwas [facility] 03[facility]18[facility]18. no pain onadmission. Jeannie Shelton RN 03-19-18 1040 Chain Saw Operator Note: Met with patient to discuss dischargeplanning. Correct PCP, address, and phone number verified with patient fromdemographic sheet. Patient lvies hoem with . Wears a CPAP at night. Statesit works properly. Patient states they feel safe at home and denies any recentfalls. No current home care or DME equipment. Patient states they have nodifficulty getting to and from physician's appointments. States he just saw hisnew PCP, cannot recall name. Preferred pharmacy is [facility].Preferred pharmacy added to outpatient medication review. Patient states nodifficulty obtaining or paying for medications. Patient is not medically readyfor discharge. food safety coordinator will follow. Clarisa Villalobos RN Care [phone] 03-19-18 1530 Chain Saw Operator Note: Patient discussed during interdisciplinaryrounds. Plan for OR next week. food safety coordinator will follow. Clarisa Villalobos RNCare Coordinator [phone] 03-24-18 1435 Chain Saw Operator Note: Patient discussed during interdisciplinaryrounds. Plan for OR friday. food safety coordinator will follow. Clarisa Villalobos RNCare Coordinator [phone] 03-27-18 1500 Chain Saw Operator Note: Patient discussed during interdisciplinaryrounds. Plan for CABG friday. Clarisa Villalobos RN Chain Saw Operator [phone] Chain Saw Operator Note: 04/02/2018. Met with patient to discuss dischargeplanning. Patient is a 67 year old male from home s/p cardiac surgery.Patient will require home care at discharge. Patient provided a [facility] [employer] after heart Surgery booklet and a home acre providers list. Willcontinue to monitor patient for all home going needs. Mary Elder RN CC Chain Saw Operator Note 04/07/18Met with patient to finalize discharge plans. Pt felt he had no needs whenreturning home but was agreeable to follow the CABG care path. Addressconfirmed. All questions answered. Will continue to monitor patient's homegoing needs. Claudio Askew RN CC Discharge note 04/07/18.RN reviewed discharge orders with pt and family. Answered all questions aboutmedications, follow up appointments, wound care, etc. Pt and family verbalizedunderstanding. Tele and IV d/c'd, cath intact. Pt has all scripts andbelongings. Pt transported to [facility] via wheelchair. Mary Smith RN. Final Disposition/Discharge:Disposit ion/Discharge Information: Discharge/Transfer Information: Discharge/Transfer Date/[id number] 15:33 Discharged Accompanied Byspouse; family member Discharge Modewheelchair Transportation Methodprivate car Valuables/Medications/Belongin gs Returnedyes Belongings Commentpt has all belongings [facility] Electronic Signatures:Jeannie Shelton (RN) (Signed 19-Mar-2018 06:51)Authored: Discharge Planning Lillie Martinez (CLIN COOR) (Signed 02-Apr-2018 13:46)Authored: Discharge Planning Claudio Andrade (RN) (Signed 07-Apr-2018 14:13)Authored: Discharge Planning Mary Dahl) (Signed 07-Apr-2018 15:57)Authored: Discharge Planning Note, Final Disposition/DischargeClarisa Villalobos (CLIN COOR) (Signed 27-Mar-2018 15:19)Authored: Discharge Planning Note Last Updated: 07-Apr-2018 15:57 by Mary Smith (ANDREA) References:1. Data Referenced From 5. Education 03/19/2018 12:25 AM2. Data Referenced From Admission Risk Screen - Adult 03/19/2018 12:25 AM Normal [facility] EMR ADDONon 03-19-2018 ADDON CONFIRMATION REQUEST REC'D Normal [facility] Comment on above: Performed By: #### C BC ####[id number] [place] [address] ADDON CONFIRMATION REQUEST REC'D Normal [facility] Comment on above: Performed By: #### E MRAD ####NO LOCATION NEEDED ADDON CONFIRMATION REQUEST REC'D Normal [facility] Comment on above: Performed By: #### E MRAD ####NO LOCATION NEEDED GLUCOSE-POCTon 03-19-2018 Glucose mass conc 308 mg/dL High 74 - 99 [facility] Comment on above: Performed By: #### C BC ####[id number] [place] [address] Glucose mass conc 226 mg/dL High 74 - 99 [facility] Comment on above: Performed By: #### C BC ####[id number] [place] [address] Glucose mass conc 175 mg/dL High 74 - 99 [facility] Comment on above: Performed By: #### G BECKY ####[id number] [place] [address] Glucose mass conc 172 mg/dL High 74 - 99 [facility] Comment on above: Performed By: #### G BECKY ####[id number] [place] [address] HEMOGLOBIN A1Con 03-19-2018 Glucose mass conc 180 mg/dL Normal [facility] Comment on above: Performed By: #### E MRAD ####NO LOCATION NEEDED Hemoglobin A1c/Hemoglobin.to romy mass fraction (Bld) 7.9 % Normal [facility] Comment on above: Result Comment: Diag nosis of Diabetes-Adults Non-Diabetic: < or = 5.6% Increased risk for developing diabetes: 5.7-6.4% Diagnostic of diabetes: > or = 6.5%. Monitoring of Diabetes Age (y) Therapeutic Goal (%) Adults: >18 <7.0 Pediatrics: 13-18 <7.5 7-12 <8.0 0- 6 7.5-8.5 [place] [employer]. Diabetes Care 33(S1), May 2009. Performed By: #### E MRAD ####NO LOCATION NEEDED HEPARIN ASSAY,UFHon 03-19-20 18 HEPARIN ASSAY,UFH 0.4 IU/mL Normal [facility] Comment on above: Result Comment: The therapeutic reference range for UFH may be either 0.3-0.6 IU/mL or 0.3-0.7 IU/mL based on the clinical setting for anticoagulant therapy and the associated nomogram used. For heparin dosing guidelines based on clinical scenario and Heparin Assay results, please refer to local Pharmacy and the [facility] Guidelines for Anticoagulation therapy available on the [facility] intranet at:[email or web address] bo[facility] cityPunch [email or web address] [email or web address]_Guidelines_[email or web address].aspx Performed By: #### E MRAD ####NO LOCATION NEEDED HEPARIN ASSAY,UFH 0.6 IU/mL Normal [facility] Comment on above: Result Comment: The therapeutic reference range for UFH may be either 0.3-0.6 IU/mL or 0.3-0.7 IU/mL based on the clinical setting for anticoagulant therapy and the associated nomogram used. For heparin dosing guidelines based on clinical scenario and Heparin Assay results, please refer to local Pharmacy and the [facility] Guidelines for Anticoagulation therapy available on the [facility] intranet at:[email or web address] [email or web address]_Guidelines_for_[email or web address].aspx Performed By: #### E MRAD ####NO LOCATION NEEDED HEPATIC FUNCTION PANELon ALP enzyme act/vol 50 U/L Normal 33 - 136 [facility] Comment on above: Performed By: #### C BC ####[id number] [place] [address] ALT enzyme act/vol 103 U/L High 10 - 52 [facility] Comment on above: Result Comment: Vivien ents treated with Sulfasalazine may generate falsely decreased results for ALT. Performed By: #### C BC ####[id number] [place] [address] AST enzyme act/vol 75 U/L High 9 - 39 [facility] Comment on above: Performed By: #### C BC ####[id number] [place] [address] Bilirubin mass conc 0.9 mg/dL Normal 0.0 - 1.2 [facility] Comment on above: Performed By: #### C BC ####[id number] [place] [address] Bilirubin.direct mass conc 0.2 mg/dL Normal 0.0 - 0.3 [facility] Comment on above: Performed By: #### C BC ####[id number] [place] [address] Protein mass conc 6.6 g/dL Normal 6.4 - 8.2 [facility] Comment on above: Performed By: #### C BC ####[id number] [place] [address] Albumin mass conc 4.1 g/dL Normal 3.4 - 5.0 [facility] Comment on above: Performed By: #### C BC ####[id number] [place] [address] Performed By: #### R ENAL ####[id number] [place] [address] History and Physical-( Night float admission note )on 03-19-2018 History and Physical-( Nightfloat admission note ) History of Present Illness:Medical Student:Medical Student: Nightfloat admission note Admission Reason: [facility] evalHPI:CC:Transfered from CABG eval HPI:Mr. Elkins is a 67 yo M with HTN, DLD, T2DM, Addisson's, GERD, prostate ca s/pprostatectomy in 2011, hypothyroidism, psoriasis transferred to medicine at [facility] from [facility] on 03/18 for CABG eval Patient reports 2 month h/o intermittent exertional left sided chest painlasting less than 30 min, relieved with rest, with no other associatedsymptoms. He woke up 03/16 at 1AM with chest pressure associated with dyspnea,and his took him to [facility] where he was diagnosed with a PE,started on heparin gtt, then transferred to [facility]. There, hewas found to have a trop leak which peaked at 2.25, with no EKG changes (NSRwith no Q, T or ST waves/segment abnormalities). Bedside US was negative forDVT. TTE and LHC/cors were performed, see below for details. Patient wasdiagnosed with multivessel CAD and transferred to for CABG evaluation. Prior to transport to , patient received 10 mg Eliquis because ambulance wasnot allowed to run a heparin gtt.On arrival to , patient was asymptomatic, chest pain free, on room air withno breathing complaints. He denies any recent travels, immobilization abnormalclotting or bleeding history. He denies any palpitations, diaphoresis, nearsyncope associated with his prior chest discomfort episodes. He reports afamily history significant for Stoke, DC, CHF, HTN, DM and DLD. He quit years ago. Has an occasional beer, and denies any drug use. 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 12 points ROS obtained and negative unless otherwise stated above Prior cardiac work up. CTA at [place]:Pulmonary emboli involving the bilateral lobar segmental, and severalsubsegmental branches (RUL, RML, RLL, FIDEL, LLL). LHC/cors at [facility]:LAD prox: 30%LAD mid: 95%Diag 3rd: 99%RCA: 85 %PLV: 50%Circ: 95% TTE at [facility]:EF 60-65%Mild LA dialtionNo valvular abnormalities PMH; as above and lumbar Degenerative disk disease,PSH: as above and cataract surgery, cholecystectomy, appendectomy, carpaltunnel release surgery, cystoscopy 2 weeks ago for microscopic hematuria, rootcanal 2 weeks ago.FHx; as aboveSocial; as above Allergies: No Known Allergies: Medications Prior to Admission: aspirin 81 mg oral tablet, chewable: 1 tab(s) orally once a dayCalcium 600+D 600 mg-200 intl units oral tablet: orally once a daycitalopram 20 mg oral tablet: 1 tab(s) orally once a dayCoenzyme Q10 100 mg oral capsule: 1 cap(s) orally once a dayfludrocortisone 0.1 mg oral tablet: 1 tab(s) orally once a dayhydrocortisone 20 mg oral tablet: 1 tab(s) orally 2 times a dayibuprofen 600 mg oral tablet: orally 2 times a daylevothyroxine 150 mcg (0.15 mg) oral capsule: 1 cap(s) orally once a daylisinopril 20 mg oral tablet: 1 tab(s) orally once a daymetFORMIN 500 mg oral tablet: 1 tab(s) orally 2 times a dayMultiple Vitamins oral tablet: 1 tab(s) orally once a dayOmega-3 oral capsule: orally once a dayomeprazole 40 mg oral delayed release capsule: 1 cap(s) orally once a dayrOPINIRole 8 mg oral tablet, extended release: 1 tab(s) orally once a daysimvastatin 20 mg oral tablet: 1 tab(s) orally once a day (at bedtime). Objective: Objective Information: T [id number]/9297% Date/Time03/18 23: 23: 23: 0: 23:30Range(36.6C - 36.6C ) (79 - 79 ) (20 - 20 ) (173 - 173 )/ (92 - 92 ) (97%- 97% ) [id number] 0:14: Weight in kg (Weight (kg)) 109.311/1 0:14: Weight in lbs ((lbs)) 96469/ 0:14: BMI (kg/m2) (BMI (kg/m2)) 36.646 Physical Exam: Constitutional: Well developed, awake/alert/oriented x3, no distress, alert andcooperativeEyes: PERRL, EOMI, clear scleraENMT: mucous membranes moist, no apparent injury, no lesions seenHead/Neck: Neck supple, no apparent injury, thyroid without mass or tenderness,No JVD, trachea midline, no bruitsRespiratory/Thorax: Patent airways, CTAB, normal breath sounds with good chestexpansion, thorax symmetricCardiovascular: Regular, rate and rhythm, no murmurs, 2+ equal pulses of theextremities, normal S 1and S 2Gastrointestinal: Nondistended, soft, non-tender, no rebound tenderness orguarding, no masses palpable, no organomegaly, +BS, no bruitsMusculoskeletal: ROM intact, no joint swelling, normal strengthExtremities: Right wrist site of catheterization intact, normal pulse. normalextremities, no cyanosis edema, contusions or wounds, no clubbingSkin: psoriasis plaque over elbows and knees Medications: Medications: Continuous Medications --No continuous medications are active Scheduled Medications -- 1. Aspirin Chewable: 81 mg Oral Daily2. Citalopram: 20 mg Oral Daily3. Fludrocortisone: 0.1 mg Oral Daily4. Heparin SubCutaneous: 5000 unit(s) SubCutaneous Every 8 Hours5. Hydrocortisone: 20 mg Oral 2 Times a Day6. Insulin Lispro Mild Corrective Scale: unit(s) SubCutaneous Every 4 Hours 7. Levothyroxine: 150 microgram(s) Oral Daily8. Pantoprazole: 40 mg Oral Daily PRN Medications -- 1. Dextrose 50% in Water Injectable: 25 gram(s) IntraVenous Push Every 04Vvjbpgv3. Glucagon Injectable: 1 mg IntraMuscular Every 15 Minutes Recent Lab Results: Results:pending Radiology Results: Results:pending Assessment and Plan:Assessment:67 yo M with HTN, DLD, T2DM, Addisson's, GERD, prostate ca s/p prostatectomy [id number], hypothyroidism, psoriasis, and most recently diagnosed with a PE andmultivessel CAD transferred to medicine at [facility] from [facility] for CABG eval. Acute problems: #PE - unprovoked subsegmental PE. Hemodynamically stable, not requiringsupplemental oxygen.- Repeat TTE in the AM to assess for Right heart strain- patient received Eliquis at 21:00 prior to transfer to . Will resumeheparin gtt at 09:00 on 03/19.- obtaining admission CXR- Consider Vascular medicine consult for hypercoagulability work up.- Consider Repeat vasc lab doppler US in the AM #Multivessel CAD - stable with no active chest pain. Diagnosis of NSTEMI at OSHbut troponin elevation could be due to active PE.- TTE as above- EKG and labs on admission- patient currently on LAUREN, held on admission in anticipation for surgicaleval.- Starting Atorva 40 mg- Starting metoprolol 12.[address] surgery to be consulted in the AM- Consider getting LHC/cors disc from OSH #dental pain - root canal 2 weeks ago. Mild intermittent pain at this time- Consider dental consult Chronic Problems:#T2DM- Holding home Metformin- SSI and hypoglycemia protocol- A1C on admission #Addission's disease- Continue home fludrocortisone and hydrocortisone #GERD- Continue home PPI #HTN/DLD- if BP uncontrolled, may consider diltiazem 30- Holding LAUREN- Atorva 40mg as above- Repeating lipid profile #Hypothyroidism- Continue home levothyroxine- Repeat TSH Diet: NPOAccess: PIVDVT ppx: On Eliquis and restarting high intensity heparin gtt at 9 am ON ppx: on PPICode status: Full Signatures/Attestation/Certifi cation:Attending AttestationI saw and evaluated the patient. I personally obtainedthe judge and critical portions of the history and physical exam or wasphysically present for judge and critical portions performed by theresident/fellow. I reviewed the resident/fellows documentation and discussedthe patient with the resident/fellow. I agree with the resident/fellowsmedical decision making as documented in the residents note.I personally evaluated the patient (as noted in the above attestation) [id number] Provider Inpatient Certification StatementI certify this patientsneed for inpatient care based on the above documentation including; the orderto admit as inpatient, the anticipated length of stay, diagnosis, problem listand plan of care, and discharge plan. Electronic Signatures:Mor Calderon) (Signed 19-Mar-2018 15:57)Authored: Signatures/Attestation/Certifi cationCo-Signer: Comorbidities, Signatures/Attestation/Certifi cationTomeka Shrestha (PAC) (Signed 19-Mar-2018 07:13)Authored: Comorbidities, Signatures/Attestation/Certifi Jim Torres (Resident)) (Signed 19-Mar-2018 01:07)Authored: History of Present Illness, Allergies, Medications Prior toAdmission, Objective, Assessment and Plan Last Updated: 19-Mar-2018 15:57 by Mor Calderon) Normal [facility] LIPID PANEL (CORONARY RISK 2 )on 03-19-2018 Cholesterol in HDL mass conc 44.5 mg/dL Normal [facility] Comment on above: Result Comment: . AG E VERY LOW LOW NORMAL HIGH 0-19 Y < 35 < 40 40-45 ---- 20-24 Y ---- < 40 >45 ---- >24 Y ---- < 40 40-60 >60. Performed By: #### L IPID ####[id number] [place] [address] Cholesterol in LDL mass conc 82 mg/dL Normal 0 - 99 [facility] Comment on above: Result Comment: . PARVEZ FISHER AGE DESIRABLE OPTIMAL HIGH HIGH VERY HIGH 0-19 Y 0 - 109 --- 110-129 >/= 130 ---- 20-24 Y 0 - 119 --- 120-159 >/= 160 ---- >24 Y 0 - 99 100-129 130-159 160-189 >/=190. Performed By: #### L IPID ####[id number] [place] [address] Cholesterol in VLDL mass conc 28 mg/dL Normal 0 - 40 [facility] Comment on above: Performed By: #### L IPID ####[id number] [place] [address] Cholesterol mass conc 155 mg/dL Normal 0 - 199 [facility] Comment on above: Result Comment: . AG E DESIRABLE BORDERLINE HIGH HIGH 0-19 Y 0 - 169 170 - 199 >/= 200 20-24 Y 0 - 189 190 - 224 >/= 225 >24 Y 0 - 199 200 - 239 >/= 240 All ranges are based on fasting samples. Specific therapeutic targets will vary based on patient-specific cardiac risk.. Pediatric guidelines reference:Pediatrics 2011, 128(S5). Adult guidelines reference: NCEP ATPIII Guidelines, LENCHO 2001, 258:2486-97. Venipuncture immediately after or during the administration of Metamizole may lead to falsely low results. Testing should be performed immediately prior to Metamizole dosing. Performed By: #### L IPID ####[id number] [place] [address] Cholesterol.total /Cholesterol in HDL mass ratio 3.5 {ratio} Normal [facility] Comment on above: Result Comment: REF VALUESDESIRABLE < 3.4HIGH RISK > 5.0 Performed By: #### L IPID ####[id number] [place] [address] Triglyceride mass conc 141 mg/dL Normal 0 - 149 [facility] Comment on above: Result Comment: . AG E DESIRABLE BORDERLINE HIGH HIGH VERY HIGH 0 D-90 D 19 - 174 ---- ---- ----91 D- 9 Y 0 - 74 75 - 99 >/= 100 ---- 10-19 Y 0 - 89 90 - 129 >/= 130 ---- 20-24 Y 0 - 114 115 - 149 >/= 150 ---- >24 Y 0 - 149 150 - 199 200- 499 >/= 500. Venipuncture immediately after or during the administration of Metamizole may lead to falsely low results. Testing should be performed immediately prior to Metamizole dosing. 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; medication(s)Medications Brought to HospitalyesMedication Dispositionsent home with family General Health:Weight in kg109.3 kilogram(s)Weight in bcs155 pound(s)Height in feet5 feetHeight in inches8 inch(es)Height in cm172.7 centimeter(s)BMI (kg/m2)36.646 square meterWeight Methodactual (measured)Scale TypestandingHeight Methodestimated RSP Based Care:How would you like to participate in your carekeep me informedWhat is the number one concern for you during this hospitalizationget betterWhat is the most important thing we can do to support you during thishospitalizationn/aIs there anything we need to know to best care for youAddisons diseaseRecent Change in Mood/Behaviorrecent memoryMajor Change/Loss/Stressor/Fearsdeni es Substance:Current or Former Substance Use never: Cigarette/Tobacco, e-Cigarette/Vaping,Alcohol, Street Drugs Health Mgmt:Symptoms/Conditions Managed at HomeimmunologicalImmunological Managementmanaged Relationship/Environ:Primary Source of Support/Comfortsignificant otherLives Withsignificant otherLiving ArrangementshouseResource/Envi ronmental ConcernsnoneAnticipated Transition Toinpatient rehabilitation facilityServices Anticipated at [facility]; rehabilitation servicesSignificant IndicatorsComplete Information Review: Allergies, Home Meds and Significant Events have been Reviewed and Verifiedwith Patient/Familyno ALLERGY, INTOLERANCE, ADVERSE EVENT: Allergies: No Known Allergies: Active Electronic Signatures:Jeannie Shelton (ANDREA) (Signed 19-Mar-2018 00:25)Authored: Profile, Additional Information Last Updated: 19-Mar-2018 00:25 by Jeannie Shelton (ANDREA) Normal [facility] RENAL FUNCTION PANELon 03-19 Albumin mass conc 3.9 g/dL Normal 3.4 - 5.0 [facility] Comment on above: Performed By: #### C BC ####[id number] [place] [address] Anion gap 3 molar conc 16 mmol/L Normal 10 - 20 [facility] Comment on above: Performed By: #### C BC ####[id number] [place] [address] Calcium mass conc 9.4 mg/dL Normal 8.6 - 10.6 [facility] Comment on above: Performed By: #### C BC ####[id number] [place] [address] Chloride molar conc 102 mmol/L Normal 98 - 107 [facility] Comment on above: Performed By: #### C BC ####[id number] [place] [address] Performed By: #### R ENAL ####[id number] [place] [address] Creatinine mass conc 1.36 mg/dL High 0.50 - 1.30 [facility] Comment on above: Performed By: #### C BC ####[id number] [place] [address] GFR- AM. 63 mL/min/1.73m2 Normal >60 [facility] Comment on above: Result Comment: CALC ULATIONS OF ESTIMATED GFR ARE PERFORMED USING THE MDRD STUDY EQUATION FOR THE IDMS-TRACEABLE CREATININE METHODS. CLIN CHEM 2007;53:766-72 Performed By: #### C BC ####[id number] [place] [address] GFR-NON AM. 52 mL/min/1.73m2 Abnormal >60 [facility] Comment on above: Performed By: #### C BC ####[id number] [place] [address] Glucose mass conc 229 mg/dL High 74 - 99 [facility] Comment on above: Performed By: #### C BC ####[id number] [place] [address] HCO3 molar conc (Bld) 23 mmol/L Normal 21 - 32 [facility] Comment on above: Performed By: #### C BC ####[id number] [place] [address] Performed By: #### R ENAL ####[id number] [place] [address] Phosphate mass conc 3.6 mg/dL Normal 2.5 - 4.9 [facility] Comment on above: Result Comment: The performance characteristics of phosphorus testing in heparinized plasma have been validated by the individual laboratory site where testing is performed. Testing on heparinized plasma is not approved by the FDA; however, such approval is not necessary. Performed By: #### C BC ####[id number] [place] [address] Potassium molar conc 3.9 mmol/L Normal 3.5 - 5.3 [facility] Comment on above: Performed By: #### C BC ####[id number] [place] [address] Sodium molar conc 137 mmol/L Normal 136 - 145 [facility] Comment on above: Performed By: #### C BC ####[id number] [place] [address] Urea nitrogen mass conc 25 mg/dL High 6 - 23 [facility] Comment on above: Performed By: #### C BC ####[id number] [place] [address] Anion gap 3 molar conc 17 mmol/L Normal 10 - 20 [facility] Comment on above: Performed By: #### R ENAL ####[id number] [place] [address] Calcium mass conc 9.2 mg/dL Normal 8.6 - 10.6 [facility] Comment on above: Performed By: #### R ENAL ####[id number] [place] [address] Creatinine mass conc 1.42 mg/dL High 0.50 - 1.30 [facility] Comment on above: Performed By: #### R ENAL ####[id number] [place] [address] GFR- AM. 61 mL/min/1.73m2 Normal >60 [facility] Comment on above: Result Comment: CALC ULATIONS OF ESTIMATED GFR ARE PERFORMED USING THE MDRD STUDY EQUATION FOR THE IDMS-TRACEABLE CREATININE METHODS. CLIN CHEM 2007;53:766-72 Performed By: #### R ENAL ####[id number] [place] [address] GFR-NON AM. 50 mL/min/1.73m2 Abnormal >60 [facility] Comment on above: Performed By: #### R ENAL ####[id number] [place] [address] Glucose mass conc 206 mg/dL High 74 - 99 [facility] Comment on above: Performed By: #### R ENAL ####[id number] [place] [address] Phosphate mass conc 3.5 mg/dL Normal 2.5 - 4.9 [facility] Comment on above: Result Comment: The performance characteristics of phosphorus testing in heparinized plasma have been validated by the individual laboratory site where testing is performed. Testing on heparinized plasma is not approved by the FDA; however, such approval is not necessary. Performed By: #### R ENAL ####[id number] [place] [address] Potassium molar conc 4.1 mmol/L Normal 3.5 - 5.3 [facility] Comment on above: Performed By: #### R ENAL ####[id number] [place] [address] Sodium molar conc 138 mmol/L Normal 136 - 145 [facility] Comment on above: Performed By: #### R ENAL ####[id number] [place] [address] Urea nitrogen mass conc 23 mg/dL Normal 6 - 23 [facility] Comment on above: Performed By: #### R ENAL ####[id number] [place] [address] REQUEST-LEUKOREDUCED RED HERI LSon 03-19-2018 REQUEST-LEUKOREDU TATUM RED CELLS ORDER RECD Normal [facility] Comment on above: Performed By: #### E MRAD ####NO LOCATION NEEDED STAPH/MRSA SCREENon 03-19-20 18 STAPH/MRSA SCREEN PATIENT: DON ELKINS LOCATION: TT [id number]#: [id number] : 50 AGE: SEX: M ORDERED BY: FESTUS ARECHIGA: ANTERIOR NARES COLLECTED: 03/19/18 09:34ANTIBIOTICS AT JIMENA.: RECEIVED : 03/19/18 11:09SITE: NARES R E S U L T S STAPH/MRSA SCREEN FINAL 03/20/18 12:15 NO Staphylococcus aureus ISOLATED. Normal [facility] Comment on above: Performed By: #### C OAGS ####[id number] [place] [address] TH CHEST 1 VIEWon 03-19-2018 TH CHEST 1 VIEW Name: DON ELKINS STUDY:TH CHEST 1 VIEW; 03/19/2018 6:21 am INDICATION:Signs/Symptoms: admisison Xray. COMPARISON:None ORDERING CLINICIAN:JIM TITUS FINDINGS:The cardiomediastinal silhouette is within normal limits. There is no focal consolidation, edema or pneumothorax. No sizeablepleural effusion. No acute osseous abnormality. IMPRESSION:1. No radiographic evidence of acute cardiopulmonary process. Electronically signed by: STANISLAV RADFORD MD Normal [facility] TH CHEST 2 VIEW PA AND LATon 03-19-2018 TH CHEST 2 VIEW PA AND LAT Name: DON ELKINS STUDY:CHEST 2 VIEW PA AND LAT; 03/19/2018 12:56 pm INDICATION:Signs/Symptoms: preop cabg ROOM [id number]. COMPARISON:Chest radiograph from 03/19/2018 ORDERING CLINICIAN:KYLE ARECHIGA FINDINGS:The cardiomediastinal silhouette is stable and within normal limits. There is no focal consolidation, edema or pneumothorax. No sizeablepleural effusion. No acute osseous abnormality. IMPRESSION:1. No radiographic evidence of acute cardiopulmonary process. Electronically signed by: STANISLAV RADFORD MD Normal [facility] TSHon 03-19-2018 Thyrotropin Qn 2.51 m[IU]/L Normal 0.44 - 3.98 [facility] Comment on above: Result Comment: TSH testing is performed using different testing methodology at [facility] than at other [facility]. Direct result comparisons should only be made within the same method.. Patients receiving more than 5 mg/day of biotin may have interference in test results. A sample should be taken no sooner than eight hours after previous dose. Contact [phone] for additional information. Performed By: #### T SH2 ####[id number] [place] [address] URINALYSISon 03-19-2018 APPEARANCE CLEAR Normal CLEAR [facility] Comment on above: Performed By: #### U A ####[id number] [place] [address] BILIRUBIN Negative Normal NEGATIVE [facility] Comment on above: Performed By: #### U A ####[id number] [place] [address] BLOOD Negative Normal NEGATIVE [facility] Comment on above: Performed By: #### U A ####[id number] [place] [address] COLOR YELLOW Normal STRAW,YELLOW [facility] Comment on above: Performed By: #### U A ####[id number] [place] [address] GLUCOSE Negative Normal NEGATIVE [facility] Comment on above: Performed By: #### U A ####[id number] [place] [address] KETONES Negative Normal NEGATIVE [facility] Comment on above: Performed By: #### U A ####[id number] [place] [address] LEUKOCYTE ESTERASE Negative Normal NEGATIVE [facility] Comment on above: Performed By: #### U A ####[id number] [place] [address] NITRITE Negative Normal NEGATIVE [facility] Comment on above: Performed By: #### U A ####[id number] [place] [address] pH 6.0 Normal 5.0 - 8.0 [facility] Comment on above: Performed By: #### U A ####[id number] [place] [address] Protein mass conc Negative Normal NEGATIVE [facility] Comment on above: Performed By: #### U A ####[id number] [place] [address] SPECIFIC GRAVITY 1.013 Normal 1.005 - 1.035 [facility] Comment on above: Performed By: #### U A ####[id number] [place] [address] UROBILINOGEN 2.0 mg/dL High 0.0 - 1.9 [facility] Comment on above: Result Comment: SOME PIGMENTS AND MEDICATIONS MAY CAUSE AFALSE POSITIVE UROBILINOGEN Performed By: #### U A ####[id number] [place] [address] URINE CULTURE,BACTERIALon URINE CULTURE,BACTERIAL PATIENT: DON ELKINS LOCATION: [address]#: [id number] : 50 AGE: SEX: M ORDERED BY: FESTUS ARECHIGA: URINE COLLECTED: 03/19/18 10:09ANTIBIOTICS AT JIMENA.: RECEIVED : 03/19/18 13:55SITE: Clean Catch/Voided R E S U L T S URINE CULTURE,BACTERIAL FINAL 03/20/18 08:55 NO SIGNIFICANT GROWTH. Normal [facility] Comment on above: Performed By: #### C BC ####[id number] [place] [address] Vital Signs Date Time Vital Sign Value Performing Clinician Facility 03-16-2024 09:[id number] Body height 172.72 cm [facility] 03-16-2024 09:42-0400 Body mass index (BMI) [Ratio] 35.9 kg/m2 [facility] 03-16-2024 09:42-0400 Body weight 107.04 kg [facility] 03-16-2024 09:42-0400 Diastolic blood pressure 74 mm[Hg] [facility] 03-16-2024 09:42-0400 Heart rate 76 /min [facility] 03-16-2024 09:42-0400 Systolic blood pressure 146 mm[Hg] [facility] 01-29-2024 15:050400 Body height 172.72 cm [facility] 01-29-2024 15:05-0400 Body mass index (BMI) [Ratio] 35.6 kg/m2 [facility] 01-29-2024 15:05-0400 Body temperature 97.2 [degF] [facility] 01-29-2024 15:05-0400 Body weight 106.25 kg [facility] 01-29-2024 15:05-0400 Diastolic blood pressure 78 mm[Hg] [facility] 01-29-2024 15:05-0400 Heart rate 69 /min [facility] 01-29-2024 15:05-0400 Respiratory rate 16 /min [facility] 01-29-2024 15:05-0400 SaO2% (BldA) [Mass fraction] 96 % [facility] 01-29-2024 15:05-0400 Systolic blood pressure 134 mm[Hg] [facility] 08-14-2023 12:06-0400 Body height 172.72 cm [facility] 08-14-2023 12:06-0400 Body mass index (BMI) [Ratio] 35.2 kg/m2 [facility] 08-14-2023 12:06-0400 Body temperature 96.9 [degF] [facility] 08-14-2023 12:06-0400 Body weight 105.23 kg [facility] 08-14-2023 12:06-0400 Diastolic blood pressure 80 mm[Hg] [facility] 08-14-2023 12:06-0400 Heart rate 76 /min [facility] 08-14-2023 12:06-0400 Respiratory rate 16 /min [facility] 08-14-2023 12:06-0400 SaO2% (BldA) [Mass fraction] 97 % [facility] 08-14-2023 12:06-0400 Systolic blood pressure 130 mm[Hg] [facility] 06-24-2023 10:02-0500 Body height 167.6 cm Oscar Arvizu MD Work Phone: [facility] 06-24-2023 10:02-0500 Body mass index (BMI) [Ratio] 36.32 kg/m2 Oscar Arvizu MD Work Phone: [facility] 06-24-2023 10:02-0500 Body weight 102.06 kg Oscar Arvizu MD Work Phone: [facility] 06-24-2023 10:02-0500 Diastolic blood pressure 72 mm[Hg] Oscar Arvizu MD Work Phone: [facility] 06-24-2023 10:02-0500 Heart rate 77 /min Oscar Arvizu MD Work Phone: [facility] 06-24-2023 10:02-0500 Systolic blood pressure 131 mm[Hg] Oscar Arvizu MD Work Phone: [facility] 01-16-2023 15:00-0400 Body height 172.72 cm Frederick Geovanni Other [facility] Other 01-16-2023 15:00-0400 Body mass index (BMI) [Ratio] 33.96 kg/m2 Frederick Geovanni Other [facility] Other 01-16-2023 15:00-0400 Body temperature 97.3 [degF] Frederick Geovanni Other [facility] Other 01-16-2023 15:00-0400 Body weight 101.33 kg Frederick Geovanni Other [facility] Other 01-16-2023 15:00-0400 Diastolic blood pressure 64 mm[Hg] Frederick Geovanni Other [facility] Other 01-16-2023 15:00-0400 Respiratory rate 18 /min Frederick Geovanni Other [facility] Other 01-16-2023 15:00-0400 SaO2% (BldA) [Mass fraction] 97 % Frederick Geovanni Other [facility] Other 01-16-2023 15:00-0400 Systolic blood pressure 130 mm[Hg] Frederick Geovanni Other [facility] Other 06-20-2022 16:00-0500 Body height 172.72 cm Frederick Geovanni Other [facility] Other 06-20-2022 16:00-0500 Body mass index (BMI) [Ratio] 33.9 kg/m2 Frederick Geovanni Other [facility] Other 06-20-2022 16:00-0500 Body temperature 97 [degF] Frederick Geovanni Other [facility] Other 06-20-2022 16:00-0500 Body weight 101.15 kg Frederick Geovanni Other [facility] Other 06-20-2022 16:00-0500 Diastolic blood pressure 80 mm[Hg] Frederick Geovanni Other [facility] Other 06-20-2022 16:00-0500 Respiratory rate 18 /min Frederick Geovanni Other [facility] Other 06-20-2022 16:00-0500 SaO2% (BldA) [Mass fraction] 91 % Frederick Geovanni Other [facility] Other 06-20-2022 16:00-0500 Systolic blood pressure 132 mm[Hg] Frederick Geovanni Other [facility] Other 11-22-2021 16:40-0400 Body height 172.72 cm Frederick Geovanni Other [facility] Other 11-22-2021 16:40-0400 Body mass index (BMI) [Ratio] 34.18 kg/m2 Frederick Geovanni Other [facility] Other 11-22-2021 16:40-0400 Body temperature 96.7 [degF] Frederick Geovanni Other [facility] Other 11-22-2021 16:40-0400 Body weight 101.97 kg Frederick Geovanni Other [facility] Other 11-22-2021 16:40-0400 Diastolic blood pressure 76 mm[Hg] Frederick Geovanni Other [facility] Other 11-22-2021 16:40-0400 Respiratory rate 18 /min Frederick Geovanni Other [facility] Other 11-22-2021 16:40-0400 SaO2% (BldA) [Mass fraction] 97 % Frederick Geovanni Other [facility] Other 11-22-2021 16:40-0400 Systolic blood pressure 110 mm[Hg] Frederick Geovanni Other [facility] Other 05-31-2021 16:00-0500 Body height 172.72 cm Frederick Geovanni Other [facility] Other 05-31-2021 16:00-0500 Body mass index (BMI) [Ratio] 35.35 kg/m2 Frederick Geovanni Other [facility] Other 05-31-2021 16:00-0500 Body temperature 96.9 [degF] Frederick Geovanni Other [facility] Other 05-31-2021 16:00-0500 Body weight 105.46 kg Frederick Geovanni Other [facility] Other 05-31-2021 16:00-0500 Diastolic blood pressure 70 mm[Hg] Frederick Geovanni Other [facility] Other 05-31-2021 16:00-0500 Respiratory rate 18 /min Frederick Geoavnni Other [facility] Other 05-31-2021 16:00-0500 SaO2% (BldA) [Mass fraction] 97 % Frederick Geovanni Other [facility] Other 05-31-2021 16:00-0500 Systolic blood pressure 110 mm[Hg] Frederick Geovanni Other [facility] Other 04-13-2019 06:55-0500 Body Temperature 98.01 [degF] [facility] [place] 04-13-2019 06:55-0500 BP Diastolic 89 mm[Hg] [facility] [place] 04-13-2019 06:55-0500 BP Systolic 164 mm[Hg] [facility] [place] 04-13-2019 06:55-0500 Pulse (Heart Rate) 82 /min [facility] [place] 04-13-2019 06:55-0500 Pulse Oximetry 96 % [facility] [place] 04-13-2019 06:55-0500 Respiratory Rate 17 /min [facility], [place] 04-13-2019 05:57-0500 BMI (Body Mass Index) 39.2 kg/m2 [facility], [place] 04-13-2019 05:57-0500 Body weight 113.54 kg [facility] , [place] 04-09-2019 16:35-0500 Height 170.2 cm Ellie [facility] , [place] 04-09-2019 05:19-0500 BMI (Body Mass Index) 39.19 kg/m2 [facility], [place] 04-09-2019 05:19-0500 Body weight 113.5 kg [facility] [place] 04-09-2019 03:30-0500 BP Diastolic 44 mm[Hg] [facility] , [place] 04-09-2019 03:30-0500 BP Systolic 126 mm[Hg] [facility] , [place] 04-09-2019 03:30-0500 Pulse (Heart Rate) 92 /min [facility], [place] 04-09-2019 03:30-0500 Pulse Oximetry 98 % [facility] [place] 04-09-2019 00:52-0500 Body Temperature 98.2 [degF] [facility] [place] 04-09-2019 00:52-0500 Respiratory Rate 18 /min [facility], [place] 04-07-2019 18:15-[address] [facility] , [place] 04-05-2019 14:57-0500 BP Diastolic 52 mm[Hg] [facility] , [place] 04-05-2019 14:57-0500 BP Systolic 94 mm[Hg] [facility] , [place] 04-05-2019 14:57-0500 Pulse (Heart Rate) 90 /min [facility], [place] 04-05-2019 14:57-0500 Pulse Oximetry 94 % [facility] , [place] 04-05-2019 14:57-0500 Respiratory Rate 16 /min [facility], [place] 04-05-2019 14:06-0500 Body Temperature 98.2 [degF] [facility], [place] 04-05-2019 08:44-0500 BMI (Body Mass Index) 46.66 kg/m2 [facility], [place] 04-05-2019 08:44-0500 Body weight 112.95 kg [facility] , [place] 04-05-2019 08:44-0500 Height 155.6 cm [facility] , [place] 03-30-2019 12:44-0500 BMI (Body Mass Index) 46.66 kg/m2 [address], [place] 03-30-2019 12:44-0500 Body Temperature 96.91 [degF] [address], [place] 03-30-2019 12:44-0500 Body weight 112.[address] , [place] 03-30-2019 12:44-0500 BP Diastolic 75 mm[Hg] [address] , [place] 03-30-2019 12:44-0500 BP Systolic 152 mm[Hg] [address] , [place] 03-30-2019 12:44-0500 Height 155.[address] , [place] 03-30-2019 12:44-0500 Pulse (Heart Rate) 77 /min [address], [place] 03-30-2019 12:44-0500 Pulse Oximetry 98 % [address] 03-30-2019 12:44-0500 Respiratory Rate 16 /min [address], [place] 04-02-2018 04:55-0500 Body temperature 37.0 degrees [facility] Comment on above: Result Comment: NOTE: PATIENT RESULTS AR E NOT CORRECTED FOR TEMPERATURE. Performed By: #### E MRAD ####NO LOCATION NEEDED 04-01-2018 19:29-0500 Body temperature 37.0 degrees [facility] Comment on above: Result Comment: NOTE: PATIENT RESULTS AR E NOT CORRECTED FOR TEMPERATURE. Performed By: #### E MRAD ####NO LOCATION NEEDED 04-01-2018 14:43-0500 Body temperature 37.0 degrees [facility] Comment on above: Result Comment: NOTE: PATIENT RESULTS AR E NOT CORRECTED FOR TEMPERATURE. Performed By: #### E MRAD ####NO LOCATION NEEDED 04-01-2018 11:59-0500 Body temperature 37.0 degrees [facility] Comment on above: Result Comment: NOTE: PATIENT RESULTS AR E NOT CORRECTED FOR TEMPERATURE. Performed By: #### E MRAD ####NO LOCATION NEEDED 04-01-2018 06:26-0500 Body temperature 37.0 degrees [facility] Comment on above: Result Comment: NOTE: PATIENT RESULTS AR E NOT CORRECTED FOR TEMPERATURE. Performed By: #### E MRAD ####NO LOCATION NEEDED 04-01-2018 05:32-0500 Body temperature 37.0 degrees [facility] Comment on above: Result Comment: NOTE: PATIENT RESULTS AR E NOT CORRECTED FOR TEMPERATURE. Performed By: #### E MRAD ####NO LOCATION NEEDED 04-01-2018 04:04-0500 Body temperature 37.0 degrees [facility] Comment on above: Result Comment: NOTE: PATIENT RESULTS AR E NOT CORRECTED FOR TEMPERATURE. Performed By: #### E MRAD ####NO LOCATION NEEDED 04-01-2018 00:50-0500 Body temperature 37.0 degrees [facility] Comment on above: Result Comment: NOTE: PATIENT RESULTS AR E NOT CORRECTED FOR TEMPERATURE. Performed By: #### E MRAD ####NO LOCATION NEEDED 03-31-2018 23:29-0500 Body temperature 37.0 degrees [facility] Comment on above: Result Comment: NOTE: PATIENT RESULTS AR E NOT CORRECTED FOR TEMPERATURE. Performed By: #### E MRAD ####NO LOCATION NEEDED 03-31-2018 20:21-0500 Body temperature 37.0 degrees [facility] Comment on above: Result Comment: NOTE: PATIENT RESULTS AR E NOT CORRECTED FOR TEMPERATURE. Performed By: #### E MRAD ####NO LOCATION NEEDED 03-31-2018 19:08-0500 Body temperature 37.0 degrees [facility] Comment on above: Result Comment: NOTE: PATIENT RESULTS AR E NOT CORRECTED FOR TEMPERATURE. Performed By: #### E MRAD ####NO LOCATION NEEDED 03-31-2018 17:37-0500 Body temperature 37.0 degrees [facility] Comment on above: Result Comment: NOTE: PATIENT RESULTS AR E NOT CORRECTED FOR TEMPERATURE. Performed By: #### E MRAD ####NO LOCATION NEEDED 03-31-2018 17:18-0500 Body temperature 37.0 degrees [facility] Comment on above: Result Comment: NOTE: PATIENT RESULTS AR E NOT CORRECTED FOR TEMPERATURE. Performed By: #### E MRAD ####NO LOCATION NEEDED 03-31-2018 17:01-0500 Body temperature 37.0 degrees [facility] Comment on above: Result Comment: NOTE: PATIENT RESULTS AR E NOT CORRECTED FOR TEMPERATURE. Performed By: #### E MRAD ####NO LOCATION NEEDED 03-31-2018 15:30-0500 Body temperature 37.0 degrees [facility] Comment on above: Result Comment: NOTE: PATIENT RESULTS AR E NOT CORRECTED FOR TEMPERATURE. Performed By: #### E MRAD ####NO LOCATION NEEDED 03-31-2018 14:29-0500 Body temperature 37.0 degrees [facility] Comment on above: Result Comment: NOTE: PATIENT RESULTS AR E NOT CORRECTED FOR TEMPERATURE. Performed By: #### A FPA3 ####[id number] [place] [address] 03-31-2018 13:56-0500 Body temperature 37.0 degrees [facility] Comment on above: Result Comment: NOTE: PATIENT RESULTS AR E NOT CORRECTED FOR TEMPERATURE. Performed By: #### A FPA3 ####[id number] [place] [address] 03-31-2018 13:11-0500 Body temperature 37.0 degrees [facility] Comment on above: Result Comment: NOTE: PATIENT RESULTS AR E NOT CORRECTED FOR TEMPERATURE. Performed By: #### A FPA3 ####[id number] [place] [address] 03-31-2018 12:53-0500 Body temperature 37.0 degrees [facility] Comment on above: Result Comment: NOTE: PATIENT RESULTS AR E NOT CORRECTED FOR TEMPERATURE. Performed By: #### A FPA3 ####[id number] [place] [address] 03-31-2018 12:24-0500 Body temperature 37.0 degrees [facility] Comment on above: Result Comment: NOTE: PATIENT RESULTS AR E NOT CORRECTED FOR TEMPERATURE. Performed By: #### A FPA3 ####[id number] [place] [address] 03-31-2018 11:57-0500 Body temperature 37.0 degrees [facility] Comment on above: Result Comment: NOTE: PATIENT RESULTS AR E NOT CORRECTED FOR TEMPERATURE. Performed By: #### A FPA3 ####[id number] [place] [address] 03-31-2018 11:45-0500 Body temperature 37.0 degrees [facility] Comment on above: Result Comment: NOTE: PATIENT RESULTS AR E NOT CORRECTED FOR TEMPERATURE. Performed By: #### A FPA3 ####[id number] [place] [address] 03-31-2018 09:53-0500 Body temperature 37.0 degrees [facility] Comment on above: Result Comment: NOTE: PATIENT RESULTS AR E NOT CORRECTED FOR TEMPERATURE. Performed By: #### A FPA3 ####[id number] [place] [address] 03-19-2018 16:32-0400 Body temperature 37.0 degrees C [facility] Comment on above: Result Comment: NOTE: PATIENT RESULTS AR E NOT CORRECTED FOR TEMPERATURE. Performed By: #### E MRAD ####NO LOCATION NEEDED Encounters Encounter Date Encounter Type Care Provider Facility Start: 03-16-2024 End: 03-16-2024 ambulatory [facility] Work Phone: Start: 03-16-2024 End: 03-16-2024 Patient encounter procedure [facility] Physician [facility] Work Phone: Start: 01-29-2024 End: 01-29-2024 ambulatory [facility] Work Phone: Start: 01-29-2024 End: 01-29-2024 Patient encounter procedure [facility] Work Phone: Start: 01-22-2024 Non-patient / Non-visit [facility] Physician [facility] Work Phone: Start: 01-06-2024 End: 01-06-2024 ambulatory [facility] Start: 01-06-2024 End: 01-06-2024 Encounter for other preprocedural examination [facility] Start: 12-23-2023 End: 12-23-2023 ambulatory OSCAR ARVIZU Not Available Start: 10-24-2023 End: 10-24-2023 ambulatory OLGA VOGEL Not Available Start: 08-14-2023 End: 08-14-2023 ambulatory [facility] Work Phone: Start: 08-14-2023 End: 08-14-2023 Patient encounter procedure [facility] Darius Work Phone: Start: 08-05-2023 Non-patient / Non-visit [facility] Work Phone: Start: 06-24-2023 Chart abstracting Oscar Shrestha Work Phone: [facility] 111 Start: 06-24-2023 End: 06-24-2023 Office outpatient visit 15 minutes Oscar Arvizu MD Work Phone: [facility] Comment on above: 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 (Primary Dx); Neurogenic pain; Cognitive decline; Cervical paraspinal muscle spasm; Carotid stenosis, bilateral; Stroke, lacunar (CMS/HCC); Cerebral artery occlusion with cerebral infarction (CMS/HCC) Start: 06-24-2023 End: 06-24-2023 ambulatory OSCAR ARVIZU Not Available Start: 05-26-2023 End: 05-26-2023 ambulatory [facility] Start: 03-11-2023 End: 03-11-2023 ambulatory Sal Sabillon Other [facility] Other Start: 03-11-2023 Nursing evaluation o f patient and report Sal Sabillon [place] Start: 01-16-2023 End: 01-16-2023 ambulatory Frederick Geovanni Other [facility] Other Start: 01-16-2023 Office outpatient vi sit 25 minutes Frederick Geovanni [facility] Start: 06-20-2022 End: 06-20-2022 ambulatory Frederick Geovanni Other [facility] Other Start: 06-20-2022 Office outpatient vi sit 25 minutes Frederick Geovanni [facility] Start: 06-13-2022 End: 06-14-[address] SAL SABILLON Facility:[facility] Start: 06-07-2022 End: 06-08-[address] SAL SABILLON Facility:[facility] Start: 05-24-2022 End: 05-25-[address] SAL SABILLON Facility:[facility] Start: 01-12-[address] SAL SABILLON Facil ity:[facility] Start: 11-22-2021 End: 11-22-2021 ambulatory Frederick Geovanni Other [facility] Other Start: 11-22-2021 Office outpatient vi sit 15 minutes Frederick Geovanni [facility] Start: 11-17-2021 End: 11-18-2021 ambulatory FREDERICK GEOVANNI Facility:[facility] Start: 06-03-2021 End: 06-03-2021 ambulatory Frederick Geovanni Other [facility] [employer] Other Start: 06-03-2021 Telephone encounter Frederick Geovanni [facility] Start: 05-31-2021 End: 05-31-2021 ambulatory Frederick Geovanni Other [facility] [employer] Other Start: 05-31-2021 Office outpatient vi sit 25 minutes Frederick Geovanni [facility] Start: 02-08-2021 End: 02-09-2021 ambulatory MARJ DEMARCO Facility:[facility] Start: 04-09-2019 End: 04-13-2019 Evaluation and management of inpatient ELLIE JUÁREZ [facility] Start: 04-09-2019 End: 04-13-2019 Evaluation and management of inpatient Ellie Juárez Work Phone: [facility] Start: 04-07-2019 End: 04-09-2019 Evaluation and management of inpatient SAL SABILLON [facility] Start: 04-07-2019 End: 04-09-2019 Evaluation and management of inpatient Gilbert Martinez Work Phone: [facility] Comment on above: SIRS (systemic infla mmatory response syndrome) (HCC) (Primary Dx); Dehydration; TIFFANI (acute kidney injury) (HCC); Bronchitis; Elevated TSH Start: 04-05-2019 End: 04-05-2019 Patient encounter procedure REID Cindy [facility] Start: 04-05-2019 End: 04-07-2019 Patient encounter procedure REID [facility] Start: 04-05-2019 End: 04-05-2019 Subsequent hospital visit by physician Reid Mejia Work Phone: [facility] Comment on above: Post-op pain (Primar y Dx) Start: 03-30-2019 End: 04-04-2019 Patient encounter procedure REID Cindy [facility] Start: 03-30-2019 End: 04-03-2019 Subsequent hospital visit by physician Wandy Brown Rm [facility] Comment on above: Spinal stenosis of l umbar region with radiculopathy; Lumbar spondylosis; Brigida's disease (HCC); Cancer (HCC); Restless leg syndrome; Former smoker, stopped smoking in distant past; Tremors of nervous system; Thyroid disease; Psoriasis Start: 04-30-2018 Patient encounter procedure Jc Gaston Facility:[id number] Start: 03-19-2018 End: 04-07-2018 [facility] Procedures Date Procedure Procedure Detail Performing Clinician Start: 04-13-2019 Gluc bld gluc mntr d ev cleared fda spec home use REID SALLIE Start: 04-13-2019 Gluc bld gluc mntr d ev cleared fda spec home use Unknown Provider Result Start: 04-13-2019 DISCHARGE PATIENT REID YO O Start: 04-13-2019 INITIATE OXYGEN THER APY PROTOCOL REID SALLIE Start: 04-13-2019 Gluc bld gluc mntr d ev cleared fda spec home use REID SALLIE Start: 04-13-2019 Prothrombin time REID SALLIE Start: 04-13-2019 Gluc bld gluc mntr d ev cleared fda spec home use Unknown Provider Result Start: 04-13-2019 Prothrombin time Gerardo Fitzpatrick Work Phone: Start: 04-13-2019 INTAKE AND OUTPUT REID YO O Start: 04-13-2019 Gluc bld gluc mntr d ev cleared fda spec home use REID SALLIE Start: 04-12-2019 Gluc bld gluc mntr d ev cleared fda spec home use REID SALLIE Start: 04-12-2019 Gluc bld gluc mntr d ev cleared fda spec home use Unknown Provider Result Start: 04-12-2019 Gluc bld gluc mntr d ev cleared fda spec home use REID SALLIE Start: 04-12-2019 Gluc bld gluc mntr d ev cleared fda spec home use Unknown Provider Result Start: 04-12-2019 Gluc bld gluc mntr d ev cleared fda spec home use REID SALLIE Start: 04-12-2019 Gluc bld gluc mntr d ev cleared fda spec home use Unknown Provider Result Start: 04-12-2019 REC MISC THERAPY REID SALLIE Start: 04-12-2019 INITIATE OXYGEN THER APY PROTOCOL REID SALLIE Start: 04-12-2019 Gluc bld gluc mntr d ev cleared fda spec home use REID SALLIE Start: 04-12-2019 Prothrombin time REID SALLIE Start: 04-12-2019 Gluc bld gluc mntr d ev cleared fda spec home use Unknown Provider Result Start: 04-12-2019 Prothrombin time [employer] Work Phone: Start: 04-12-2019 INTAKE AND OUTPUT REID YO O Start: 04-12-2019 Gluc bld gluc mntr d ev cleared fda spec home use REID SALLIE Start: 04-11-2019 Gluc bld gluc mntr d ev cleared fda spec home use REID SALLIE Start: 04-11-2019 Gluc bld gluc mntr d ev cleared fda spec home use Unknown Provider Result Start: 04-11-2019 Gluc bld gluc mntr d ev cleared fda spec home use REID SALLIE Start: 04-11-2019 Gluc bld gluc mntr d ev cleared fda spec home use Unknown Provider Result Start: 04-11-2019 DIET CARB CONTROL REID YO O Start: 04-11-2019 Gluc bld gluc mntr d ev cleared fda spec home use REID SALLIE Start: 04-11-2019 INITIATE OXYGEN THER APY PROTOCOL REID SALLIE Start: 04-11-2019 Gluc bld gluc mntr d ev cleared fda spec home use REID SALLIE Start: 04-11-2019 Prothrombin time REID SALLIE Start: 04-11-2019 End: 04-11-2019 Gluc bld gluc mntr dev cleared fda spec home use Unknown Provider Result Start: 04-11-2019 Prothrombin time [employer] Work Phone: Start: 04-11-2019 INTAKE AND OUTPUT REID YO O Start: 04-11-2019 Gluc bld gluc mntr d ev cleared fda spec home use REID SALLIE Start: 04-10-2019 Gluc bld gluc mntr d ev cleared fda spec home use REID SALLIE Start: 04-10-2019 Gluc bld gluc mntr d ev cleared fda spec home use Unknown Provider Result Start: 04-10-2019 Gluc bld gluc mntr d ev cleared fda spec home use REID SALLIE Start: 04-10-2019 Gluc bld gluc mntr d ev cleared fda spec home use Unknown Provider Result Start: 04-10-2019 Gluc bld gluc mntr d ev cleared fda spec home use REID SALLIE Start: 04-10-2019 Gluc bld gluc mntr d ev cleared fda spec home use Unknown Provider Result Start: 04-10-2019 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 EVAL AND TREAT REID Y OO Start: 04-10-2019 OT EVAL AND TREAT REID YO O Start: 04-10-2019 PT EVAL AND TREAT REID YO O Start: 04-10-2019 INITIATE OXYGEN THER APY PROTOCOL REID SALLIE Start: 04-10-2019 Gluc bld gluc mntr d ev cleared fda spec home use REID SALLIE Start: 04-10-2019 Speech and language therapy regime Ellie Trujilloaaronverónica Work Phone: Start: 04-10-2019 Prothrombin time REID SALLIE Start: 04-10-2019 Gluc bld gluc mntr d ev cleared fda spec home use Unknown Provider Result Start: 04-10-2019 Prothrombin time Gerardo Fitzpatrick Work Phone: Start: 04-10-2019 DAILY WEIGHTS REID SALLIE Start: 04-10-2019 INTAKE AND OUTPUT REID YO O Start: 04-10-2019 Gluc bld gluc mntr d ev cleared fda spec home use REID SALLIE Start: 04-09-2019 PHARMACY TO DOSE WARFARIN REID SALLIE Start: 04-09-2019 IP CONSULT TO HOSPITALIST REID SALLIE Start: 04-09-2019 IP CONSULT TO RESPIR ATORY CARE REID SALLIE Start: 04-09-2019 Gluc bld gluc mntr d ev cleared fda spec home use REID SALLIE Start: 04-09-2019 Gluc bld gluc mntr d ev cleared fda spec home use REID SALLIE Start: 04-09-2019 Gluc bld gluc mntr d ev cleared fda spec home use Unknown Provider Result Start: 04-09-2019 FULL CODE REID SALLIE Start: 04-09-2019 INITIATE OXYGEN THER APY PROTOCOL REID SALLIE Start: 04-09-2019 INTAKE AND OUTPUT REID YO O Start: 04-09-2019 NOTIFY PHYSICIAN (SPECIFY) REID SALLIE Start: 04-09-2019 PLACE INTERMITTENT P NEUMATIC COMPRESSION DEVICE REID SALLIE Start: 04-09-2019 VITAL SIGNS REID SALLIE Start: 04-09-2019 INCENTIVE SPIROMETRY RT REID SALLIE Start: 04-09-2019 INCENTIVE SPIROMETRY RT REID SALLIE Start: 04-09-2019 Gluc bld gluc mntr d ev cleared fda spec home use REID SALLIE Start: 04-09-2019 Assay of lactate REID SALLIE Start: 04-09-2019 INCENTIVE SPIROMETRY RT REID SALLIE Start: 04-09-2019 Gluc bld gluc mntr d ev cleared fda spec home use Unknown Provider Result Start: 04-09-2019 INCENTIVE SPIROMETRY RT REID SALLIE Start: 04-09-2019 Assay of lactate REID SALLIE Start: 04-09-2019 Prothrombin time REID SALLIE Start: 04-09-2019 DISCHARGE PATIENT REID YO O Start: 04-09-2019 Gluc bld gluc mntr d ev cleared fda spec home use REID SALLIE Start: 04-09-2019 INCENTIVE SPIROMETRY RT REID SALLIE Start: 04-09-2019 INITIATE OXYGEN THER APY PROTOCOL REID SALLIE Start: 04-09-2019 Assay of lactate Shanika Pentito Work Phone: Start: 04-09-2019 Prothrombin time Gerardo Fitzpatrick Work Phone: Start: 04-09-2019 IP CONSULT TO REHAB/ TCU ADMISSION COORDINATOR REID SALLIE Start: 04-09-2019 OT EVAL AND TREAT REID YO O Start: 04-09-2019 PT EVAL AND TREAT REID YO O Start: 04-09-2019 Gluc bld gluc mntr d ev cleared fda spec home use Unknown Provider Result Start: 04-09-2019 INCENTIVE SPIROMETRY RT REID SALLIE Start: 04-09-2019 Ecg routine ecg w/le ast 12 lds w/i&r REID SALLIE Start: 04-09-2019 Assay of lactate REID SALLIE Start: 04-09-2019 Blood count complete auto&auto difrntl wbc REID SALLIE Start: 04-09-2019 Comprehensive metabo lic panel REID SALLIE Start: 04-09-2019 Procalcitonin (pct) REID SALLIE Start: 04-09-2019 Gluc bld gluc mntr d ev cleared fda spec home use REID SALLIE Start: 04-09-2019 Assay of lactate Shanika Pentito Work Phone: Start: 04-09-2019 BASIC METABOLIC PANE L W/ REFLEX TO MG FOR LOW K Shanika Pentito Work Phone: Start: 04-09-2019 Blood count complete auto&auto difrntl wbc Shanika Pentito Work Phone: Start: 04-09-2019 Procalcitonin (pct) Erick ole Pentito Work Phone: Start: 04-09-2019 INCENTIVE SPIROMETRY NURSING REID SALLIE Start: 04-09-2019 INTAKE AND OUTPUT REID YO O Start: 04-09-2019 Assay of lactate REID SALLIE Start: 04-09-2019 Gluc bld gluc mntr d ev cleared fda spec home use REID SALLIE Start: 04-09-2019 Assay of lactate Shanika Pentito Work Phone: Start: 04-09-2019 INCENTIVE SPIROMETRY RT REID SALLIE Start: 04-08-2019 Gluc bld gluc mntr d ev cleared fda spec home use REID SALLIE Start: 04-08-2019 INCENTIVE SPIROMETRY RT REID SALLIE Start: 04-08-2019 Gluc bld gluc mntr d ev cleared fda spec home use Unknown Provider Result Start: 04-08-2019 Assay of lactate REID SALLIE Start: 04-08-2019 INCENTIVE SPIROMETRY RT REID SALLIE Start: 04-08-2019 Gluc bld gluc mntr d ev cleared fda spec home use REID SALLIE Start: 04-08-2019 Assay of lactate Shanika Pentito Work Phone: Start: 04-08-2019 DIET CARB CONTROL REID YO O Start: 04-08-2019 INCENTIVE SPIROMETRY RT REID SALLIE Start: 04-08-2019 OT EVAL AND TREAT REID YO O Start: 04-08-2019 PT EVAL AND TREAT REID YO O Start: 04-08-2019 Gluc bld gluc mntr d ev cleared fda spec home use Unknown Provider Result Start: 04-08-2019 Assay of lactate REID SALLIE Start: 04-08-2019 Gluc bld gluc mntr d ev cleared fda spec home use REID SALLIE Start: 04-08-2019 Assay of lactate Shanika Pentito Work Phone: Start: 04-08-2019 Gluc bld gluc mntr d ev cleared fda spec home use Unknown Provider Result Start: 04-08-2019 RADIOLOGY REPORT REID SALLIE Start: 04-08-2019 INITIATE OXYGEN THER APY PROTOCOL REID SALLIE Start: 04-08-2019 Gluc bld gluc mntr d ev cleared fda spec home use REID SALLIE Start: 04-08-2019 RADIOLOGY REPORT Hpf Sc anning Start: 04-08-2019 Gluc bld gluc mntr d ev cleared fda spec home use Unknown Provider Result Start: 04-08-2019 Virus centrifuge enh ncd id imfluor stain ea REID SALLIE Start: 04-08-2019 Ecg routine ecg w/le ast 12 lds w/i&r REID SALLIE Start: 04-08-2019 Gluc bld gluc mntr d ev cleared fda spec home use REID SALLIE Start: 04-08-2019 Blood count complete auto&auto difrntl wbc REID SALLIE Start: 04-08-2019 Comprehensive metabo lic panel REID SALLIE Start: 04-08-2019 Hepatic function panel REID SALLIE Start: 04-08-2019 Assay of lactate REID SALLIE Start: 04-08-2019 Prothrombin time REID SALLIE Start: 04-08-2019 TELEMETRY MONITORING REID SALLIE Start: 04-08-2019 BASIC METABOLIC PANE L W/ REFLEX TO MG FOR LOW K [employer] Work Phone: Start: 04-08-2019 Blood count complete auto&auto difrntl wbc Shanika CommonBond Work Phone: Start: 04-08-2019 Hepatic function panel [employer] Work Phone: Start: 04-08-2019 LACTATE, SEPSIS Shanika CommonBond Work Phone: Start: 04-08-2019 Prothrombin time Shanika CommonBond Work Phone: Start: 04-08-2019 Assay of lactate REID SALLIE Start: 04-08-2019 Gluc bld gluc mntr d ev cleared fda spec home use REID SALLIE Start: 04-08-2019 PLACE INTERMITTENT P NEUMATIC COMPRESSION DEVICE REID SALLIE Start: 04-08-2019 REASON FOR NO CHEMIC AL VTE PROPHYLAXIS REID SALLIE Start: 04-08-2019 DAILY WEIGHTS REID SALLIE Start: 04-08-2019 FULL CODE REID SALLIE Start: 04-08-2019 INCENTIVE SPIROMETRY NURSING REDI SALLIE Start: 04-08-2019 INITIATE OXYGEN THER APY PROTOCOL REID SALLIE Start: 04-08-2019 INTAKE AND OUTPUT REID YO O Start: 04-08-2019 IP CONSULT TO NEUROSURGERY REID SALLIE Start: 04-08-2019 IP CONSULT TO PHARMACY REID SALLIE Start: 04-08-2019 NOTIFY PHYSICIAN (SPECIFY) REID SALLIE Start: 04-08-2019 VITAL SIGNS REID SALLIE Start: 04-08-2019 PATIENT STATUS (FROM ED OR OR/PROCEDURAL) REID SALLIE Start: 04-08-2019 POCT VENOUS REID SALLIE Start: 04-08-2019 LACTATE, SEPSIS Shanika Carmenzaito Work Phone: Start: 04-08-2019 POCT EPOC BLOOD GAS, LACTIC ACID, ICA REID SALLIE Start: 04-08-2019 Iaadiadoo influenza REID SALLIE Start: 04-08-2019 Mri spinal canal lum bar w/o & w/contr matrl REID SALLIE Start: 04-07-2019 POCT VENOUS Unknown Pr ovider Result Start: 04-07-2019 Iaadiadoo influenza Christina Santamaria Work Phone: Start: 04-07-2019 Assay of lactate REID SALLIE Start: 04-07-2019 Mri spinal canal lum bar w/o & w/contr matrl Jose David Santamaria Work Phone: Start: 04-07-2019 Microscopic examinat ion of blood, culture REID SALLIE Comment on above: Performed By: #### T S3C #### [facility] [address] [place] [address] Start: 04-07-2019 Ecg routine ecg w/le ast 12 lds w/i&r REID SALLIE Start: 04-07-2019 Culture bacterial bl ood aerobic w/id isolates REID SALLIE Start: 04-07-2019 Radiologic exam ches t single view REID SALLIE Start: 04-07-2019 Apolipoprotein each REID SALLIE Start: 04-07-2019 Assay of lipase REID SALLIE Start: 04-07-2019 Assay of magnesium REID Y OO Start: 04-07-2019 Assay of thyroid sti mulating hormone tsh REID SALLIE Start: 04-07-2019 Assay of troponin quantitative REID SALLIE Start: 04-07-2019 Blood count complete auto&auto difrntl wbc REID SALLIE Start: 04-07-2019 BRAIN NATRIURETIC PEPTIDE REID SALLIE Start: 04-07-2019 Comprehensive metabo lic panel REID SALLIE Start: 04-07-2019 Creatine kinase total B O SALLIE Start: 04-07-2019 Culture bacterial quanttative colony count urine REID SALLIE Start: 04-07-2019 Molecular cytogeneti cs dna probe each REID SALLIE Start: 04-07-2019 Procalcitonin (pct) REID SALLIE Start: 04-07-2019 Prothrombin time REID SALLIE Start: 04-07-2019 Thromboplastin time partial plasma/whole blood REID SALLIE Start: 04-07-2019 Urinalysis microscopic only REID SALLIE Start: 04-07-2019 Urnls dip stick/tabl et rgnt auto w/o microscopy REID SALLIE Start: 04-07-2019 Assay of lactate Deepthi Santamaria Work Phone: Start: 04-07-2019 End: 04-07-2019 Culture bacterial blood aerobic w/id isolates Jose David Santamaria Work Phone: Start: 04-07-2019 Ecg routine ecg w/le ast 12 lds w/i&r Jose David Santamaria Work Phone: Start: 04-07-2019 Radiologic exam ches t single view Jose David Santamaria Work Phone: Start: 04-07-2019 Assay of lipase Max Santamaria Work Phone: Start: 04-07-2019 Assay of magnesium Christinab dave Santamaria Work Phone: Start: 04-07-2019 Assay of thyroid sti mulating hormone tsh Jose David Santamaria Work Phone: Start: 04-07-2019 Assay of troponin quantitative Jose David Santamaria Work Phone: Start: 04-07-[address] & INDIRECT Shanika Pentito Work Phone: Start: 04-07-2019 Blood count complete auto&auto difrntl wbc Jose David Santamaria Work Phone: Start: 04-07-2019 CKMB & RELATIVE PERCENT Jose David Santamaria Work Phone: Start: 04-07-2019 Comprehensive metabo lic panel Jose David Santamaria Work Phone: Start: 04-07-2019 Creatine kinase total K neno Santamaria Work Phone: Start: 04-07-2019 Culture bacterial quanttative colony count urine Jose David Santamaria Work Phone: Start: 04-07-2019 LACTATE, SEPSIS Max Santamaria Work Phone: Start: 04-07-2019 Natriuretic peptide Christina Santamaria Work Phone: Start: 04-07-2019 Procalcitonin (pct) Christina Santamaria Work Phone: Start: 04-07-2019 Prothrombin time Deepthi Santamaria Work Phone: Start: 04-07-2019 Thromboplastin time partial plasma/whole blood Jose David Santamaria Work Phone: Start: 04-07-2019 Urinalysis microscopic only Jose David Santamaria Work Phone: Start: 04-07-2019 Urnls dip stick/tabl et rgnt auto w/o microscopy Jose David Santamaria Work Phone: Start: 04-05-2019 Gluc bld gluc mntr d ev cleared fda spec home use REID SALLIE Start: 04-05-2019 Fluoroscopy up to 1 hour physician/qhp time REID SALLIE Start: 04-05-2019 DISCHARGE PATIENT REID YO O Start: 04-05-2019 Gluc bld gluc mntr d ev cleared fda spec home use Unknown Provider Result Start: 04-05-2019 Continuous pulse oximetry REID SALLIE Start: 04-05-2019 ENCOURAGE DEEP BREAT TRINA AND COUGHING REID SALLIE Start: 04-05-2019 INITIATE OXYGEN THER APY PROTOCOL REID SALLIE Start: 04-05-2019 BEDREST REID SALLIE Start: 04-05-2019 NOTIFY PHYSICIAN (SPECIFY) REID SALLIE Start: 04-05-2019 NURSING COMMUNICATION B O SALLIE Start: 04-05-2019 VITAL SIGNS REID SALLIE Start: 04-05-2019 Prothrombin time REID SALLIE Start: 04-05-2019 DIET NPO, NOW REID SALLIE Start: 04-05-2019 Gluc bld gluc mntr d ev cleared fda spec home use REID SALLIE Start: 04-05-2019 GRADUAL COMPRESSION STOCKINGS (DARLYN) REID SALLIE Start: 04-05-2019 INITIATE OXYGEN THER APY PROTOCOL REID SALLIE Start: 04-05-2019 NOTIFY PHYSICIAN (SPECIFY) REID SALLIE Start: 04-05-2019 PLACE INTERMITTENT P NEUMATIC COMPRESSION DEVICE REID SALLIE Start: 04-05-2019 PULSE OXIMETRY SPOT CHECK REID SALLIE Start: 04-05-2019 VITAL SIGNS REID SALLIE Start: 04-05-2019 Prothrombin time Sawyer angélica Singletary Start: 04-05-2019 Gluc bld gluc mntr d ev cleared fda spec home use Unknown Provider Result Start: 03-30-2019 Basic metabolic pane l calcium total REID SALLIE Start: 03-30-2019 Prothrombin time REID SALLIE Start: 03-30-2019 Blood count complete automated REID SALLIE Start: 03-30-2019 TYPE AND SCREEN REID SALLIE Start: 03-30-2019 Hemoglobin glycosylated a1c REID SALLIE Start: 03-30-2019 Ecg routine ecg w/le ast 12 lds w/i&r REID SALLIE Start: 03-30-2019 Antibody screen Mloz 1 Start: 03-30-2019 Basic metabolic pane l calcium total Vicki Singletary Start: 03-30-2019 Prothrombin time Sawyer Orourke Singletary Start: 03-30-2019 Blood count complete automated Vicki Orourke Hayder Start: 03-30-2019 Blood typing serologic abo Vicki Orourke Hayder Start: 03-30-2019 Hemoglobin glycosylated a1c Vicki Orourke Singletary Start: 03-30-2019 Ecg routine ecg w/le ast 12 lds i&r only Vicki Orourke Hayder Start: 04-30-2018 Follow-up visit Start: 03-31-2018 Bypass Coronary Shalini ry, One Artery from Left Internal Mammary, Open Approach Kenneth Alegriaer Start: 03-31-2018 Excision of Right Sa phenous Vein, Percutaneous Endoscopic Approach Kenneth Proweller Start: 03-31-2018 Performance of Cardi ac Output, Continuous Kenneth Alegriaer Start: 03-30-2018 Antibody screen Kenneth merlos Comment on above: Performed By: #### T +S ####[id number] [place] [address] Start: 03-23-2018 Insertion of Intralu devon Device into Inferior Vena Cava, Percutaneous Approach Kenneth Alegriaer Start: 03-22-2018 Antibody screen Kenneth merlos Comment on above: Performed By: #### L IPID ####[id number] [place] [address] Start: 03-19-2018 Echocardiography Kenneth Cheng Plan of Treatment Date Care Activity Detail Author Start: 12-23-2023 End: 12-23-2023 Patient encounter procedure 12/23/2023 10:30 AM EDT Office Visit [facility] [address] [place] [address] Oscar Arvizu MD [address] [facility] [address] [place] [address] [facility] Start: 06-24-2023 End: 06-24-2024 US.doppler Carotid arteries - bilateral Vascular US carotid artery duplex bilateral Imaging Routine Carotid stenosis, bilateral Stroke, lacunar (CMS/HCC) Cerebral artery occlusion with cerebral infarction (CMS/HCC) Expected: 06/24/2023 (Approximate), Expires: 06/24/2024 [facility] Work Phone: Comment on above: Expected: 06/24/2023 (Approximate), Expi res: 06/24/2024 Start: 01-17-2023 Influenza vaccination Influenza Vaccine (#1) [facility] Start: 06-25-2022 Pneumococcal Vaccine: 65+ Years (2 - PCV) Pneumococcal Vaccine: 65+ Years (2 - PCV) [facility] Start: 05-01-2020 DTaP/Tdap/Td vaccine (3 - Td) DTaP/Tdap/Td vaccine (3 - Td) [place], [place] Start: 04-09-2020 Creatinine monitoring Creatinine monitoring [place] Start: 04-09-2020 Potassium monitoring Potassium monitoring [place] Start: 04-08-2020 Creatinine monitoring Creatinine monitoring [place] Start: 04-08-2020 Potassium monitoring Potassium monitoring [place] Start: 03-30-2020 Creatinine monitoring Creatinine [place] Start: 03-30-2020 Potassium monitoring Potassium [place] Start: 06-30-2019 A1C test (Diabetic or Prediabetic) A1C test (Diabetic or Prediabetic) [place] Start: 04-23-2019 End: 04-23-2019 Office Visit 04/23/2019 Office Visit Neurosurgery Reid Mejia MD [address] [place] [id number] [employer] Start: 04-05-2019 End: 04-05-2019 Hospital Encounter [facility] Comment on above: L 3, L 4 LUMBAR DECOMPRESSION, 1 HOUR/ 1 C-ARM Start: 01-17-2019 Influenza vaccination Flu vaccine (#1) [place] Start: 11-08-2018 Annual Wellness Visit (AWV) Annual Wellness Visit (AWV) [place] Start: 08-27-2015 Pneumococcal 65+ years Vaccine (1 of 1 - PPSV23) Pneumococcal 65+ years Vaccine (1 of 1 - PPSV23) [place] Start: 08-27-2015 Pneumococcal 65+ years Vaccine (2 of 2 - PPSV23) Pneumococcal 65+ years Vaccine (2 of 2 - PPSV23) [place] Start: 2000 Colon cancer screen colonoscopy Colon cancer screen colonoscopy [place] Start: 2000 Shingles Vaccine (1 of 2) Shingles Vaccine (1 of 2) [place], [place] Start: 1968 Diabetic microalbuminuria test Diabetic microalbuminuria test [place], [place] Start: 1960 [object Object] Diabetic foot exam [place], [place] Start: 1960 Diabetic retinal exam Diabetic retinal exam [place] Start: 1960 Lipid screen Lipid screen [place], [place] Start: 1950 AAA screen AAA screen [place], [place] Start: 1950 Hepatitis C screen Hepatitis C screen [place], [place] Start: 1950 Screening for malignant neoplasm of colon [facility] Basic Metabolic Pane l w/ Reflex to MG Basic Metabolic Panel w/ Reflex to MG Lab Routine Daily until discontinued starting 04/08/2019, 2 completed [place] Comment on above: Daily until discontinued starting 2018, 2 completed CBC auto differential CBC auto d ifferential Lab Routine Daily until discontinued starting 04/08/2019, 2 completed [place] Comment on above: Daily until discontinued starting 2018, 2 completed Culture Blood #1 Culture Blood # 1 Microbiology STAT 04/07/2019 7:04 PM EST [facility] Culture Blood #2 Culture Blood # 2 Microbiology STAT 04/07/2019 6:56 PM EST [facility] E[facility] 12 Lead [facility] Bowen Comment on above: Daily until discontinued starting 2018, 2 completed Incentive spirometry RT post-op Incentive spirometry RT post-op Respiratory Care Routine Every 2hr while awake until discontinued starting 04/08/2019 [facility] Comment on above: Every 2hr while awake until discontinued starting 04/08/2019 Initiate Oxygen Ther apy Protocol [facility] Comment on above: Daily until discontinued starting 2018 Daily until disconti nued starting 04/10/2019 Daily until disconti nued starting 04/08/2019 Lactic acid, plasma Lactic acid, plasma Lab Routine Every 6hr until discontinued starting 04/08/2019, 5 completed [facility] Comment on above: Every 6hr until discontinued starting , 5 completed Phase I & II - meter ed glucose [facility] Comment on above: As Needed until discontinued starting 4X Daily (AC & HS) u ntil discontinued starting 04/09/2019 As Needed until disc ontinued starting 04/09/2019 4X Daily (AC & HS) u ntil discontinued starting 04/08/2019 As Needed until disc ontinued starting 04/08/2019 End: 04-05-2019 POCT Glucose POCT Glucose Point of Care Testing STAT One Time for 1 Occurrences starting 04/05/2019 until 04/05/2019 [facility] Comment on above: One Time for 1 Occurrences starting 03/19 until 04/05/2019 End: 04-11-2019 Procalcitonin Procalcitonin Lab Routine Q48H for 2 Occurrences starting 04/09/2019 until 04/11/2019, 1 completed [facility] Comment on above: Q48H for 2 Occurrences starting 04/09/20 19 until 04/11/2019, 1 completed [facility] Comment on above: Daily until discontinued starting 2018, 4 completed Daily until disconti nued starting 04/10/2019 End: 04-05-2019 Pulse Oximetry Spot Check Pulse Oximetry Spot Check Respiratory Care Routine One Time for 1 Occurrences starting 04/05/2019 until 04/05/2019 [place] Comment on above: One Time for 1 Occurrences starting 03/19 until 04/05/2019 Renal function 2000 panel - Serum or Plasma [facility] Renal function 2000 panel - Serum or Plasma [facility] Respiratory Culture Respiratory Culture Microbiology Routine 04/08/2019 5:06 AM EST [facility] Immunizations Immunization Date Immunization Notes Care Provider [facility] 03-11-2023 influenza, high dose seasonal, preservative-free Sal Sabillon Other [employer] Other 03-11-2023 influenza virus vaccine, unspecified formulation [facility] 07-01-2022 influenza virus vaccine, unspecified formulation Oscar Arvizu MD Work Phone: [facility] 08-05-2020 COVID-19 mRNA, Comirnaty (Pfizer) [facility] 07-22-2020 COVID-19 mRNA, Comirnaty (Pfizer) [facility] Payers Date Payer Category Payer Unknown [employer] [id number] 2023-Present [address] [place] [address] [id number] 2023 Medicare [id number] 2022 Private Health Insurance [employer] [id number] 2022-Present [address] [address] [place] [address] Supplement [id number] 2017 Medicare [id number] 2017 Medicare xxxxxxxxxx [id number] 2015 Medicare MEDICARE MEDICAR E PART B [id number] 2015-[place] [address] Medicare [id number] 1959 Medicare [id number] [address] [facility] [id number] Self-pay 1950 Unknown [id number] 1950 Unknown [id number] .1046 1950 Unknown [id number] .182 1950 Unknown [id number] [id number] .182 1950 Unknown [id number] .182 1950 Unknown [id number] [id number] .182 1950 Unknown [id number] [id number] .182 1950 Unknown [id number] [id number] .647 1950 Unknown [id number] [id number] .593 1950 Unknown [id number] 2.16.840.1.302570.3.579.2 .593 1950 Unknown [id number] [id number] .593 1950 Unknown [id number] 2.16.840.1.818114.3.579.2 .593 1950 Unknown [id number] 2.16.840.1.900358.3.579.2 .593 1950 Unknown [id number] 2.16.840.1.568970.3.579.2 .1259 1950 Unknown [id number] [id number] .1259 1950 Unknown [id number] .1259 Private Health Insurance [facility] [id number] Unknown [id number] Social History Date Type Detail Facility Start: 04-05-2019 End: 08-14-2023 Tobacco smoking status [facility] Former smoker [facility] End: 03-30-1991 History of tobacco use Current [place]oker [place] End: 03-30-1991 History of tobacco use Cigarette [place] Start: 04-05-2019 End: 10-11-2022 Cigarettes smoked current (pack per day) - Reported [place] History of tobacco use Chews Tobacco [place] Start: 04-05-2019 End: 10-11-2022 Alcohol intake Current drinker of alcohol (finding) [place] Start: 03-30-2019 Alcohol Comment social [place], [place] Start: 1950 Sex Assigned At Not on file M [place] Start: 04-09-2019 History SDOH Social Connections Phone 5 [place] Start: 04-09-2019 History SDOH Social Connections Get Together 3 [place] Start: 04-09-2019 History SDOH Social Connections Hinduism 2 [place] Start: 04-09-2019 History SDVA Social Connections Meetings 1 [place] Start: 04-09-2019 History SDOH Physica l Activity DPW 0 Kae [facility] Start: 10-11-2022 Sex Assigned At N [employer] Other Start: 09-27-2022 Tobacco use and exposure Smokeless tobacco non-user [facility] Start: 09-27-2022 Tobacco Comment >10 years sin e last smoked [facility] Start: 09-27-2022 Alcohol Comment caffeine: coffee [facility] Start: 1950 Sex Assigned At Male F [facility] Clinical Notes 11-24-2020 to 01-06-2024 Oscar Arvizu MD - 06/24/2023 10:23 AM Keegan Arvizu MD - 06/24/2023 10:22 AM Keegan Arvizu MD - 06/24/2023 10:22 AM Keegan Arvizu MD - 06/24/2023 10:21 AM ESTOscar Arvizu MD - 06/24/2023 10:21 AM EST Note Date & Type Note Facility 01-06-2024 Note Cardiovascular Medic [facility] SUBJECTIVE Chief Complaint Patient presents with Hypertension Coronary Artery Disease Don Elkins is a 73 y.o. male here for follow-up. HPI PMHx: CAD s/p CABG 2018 at , DM type II , brigida's disease, hx DVT/PE, ? possible parkinsons on sinamet , HLD He has been feeling well from a cardiac standpoint. He is due to have some teeth pulled so he can get a plate. BP at home running 140s/90s. Denies c/o CP, dyspnea, orthopnea, PND, LE edema, dizziness/LH, palpitations, syncope. Patient Active Problem List Diagnosis Abnormality of gait and mobility Acute kidney failure (CMS/HCC) [facility]'s disease (CMS/HCC) Atherosclerotic heart disease of [place] coronary artery without angina pectoris Cancer (CMS/HCC) Carcinoma of prostate (CMS/HCC) CKD (chronic kidney disease) Diabetes mellitus (CMS/HCC) Diarrhea Diverticulosis large intestine w/o perforation or abscess w/o bleeding Elevated bilirubin Encounter for screening colonoscopy Former smoker, stopped smoking in distant past Acid reflux Hematuria History of anticoagulant therapy History of malignant neoplasm of prostate HTN (hypertension) Hyperkalemia Hyperlipidemia Iron deficiency anemia Major depressive disorder, single episode, unspecified Meralgia paresthetica Metabolic acidosis, normal anion gap (NAG) Microscopic hematuria Nausea and vomiting Obstructive sleep apnea syndrome Postoperative fever Psoriasis Pulmonary embolism (CMS/HCC) Rectal bleeding Restless leg syndrome Sepsis (CMS/HCC) Sinus tachycardia Lumbar spondylosis Tremors of nervous system Tubular adenoma of colon Urge incontinence of urine Urinary urgency Mild aortic valve regurgitation Benign essential hypertension Carotid stenosis, bilateral Cognitive decline Depression History of colonic polyps Hypothyroid Lumbar radiculopathy Cervical paraspinal muscle spasm Neuralgia and neuritis, unspecified Neurogenic pain Osteopenia Parkinson's disease (CMS/HCC) Polyneuropathy Tinnitus Type 2 diabetes mellitus without complications (CMS/HCC) Dehydration Encounter for fitting and adjustment of hearing aid Hypomagnesemia Secondary hyperparathyroidism (CMS/HCC) Sensorineural hearing loss, bilateral Past Medical History: Diagnosis Date Coronary artery disease Hyperlipidemia NSVT (nonsustained ventricular tachycardia) Pulmonary embolism (CMS/HCC) Family History Problem Relation Name Age of Onset Diabetes Mother Coronary artery disease Brother Other (coronary artery bypass) Brother Heart failure Brother Social History Tobacco Use Smoking status: Former Types: Cigarettes Smokeless tobacco: Never Substance Use Topics Alcohol use: Not Currently Comment: occasional No Known Allergies Review of Systems Constitutional: Negative for chills, decreased appetite, fever, malaise/fatigue and weight gain. Cardiovascular: Negative for chest pain, dyspnea on exertion, irregular heartbeat, leg swelling, near-syncope, orthopnea, palpitations, paroxysmal nocturnal dyspnea and syncope. Hematologic/Lymphatic: Negative for bleeding problem. Does not bruise/bleed easily. OBJECTIVE Visit Vitals BP (!) 143/91 (BP Location: Left arm, Patient Position: Sitting) Pulse 72 Ht 1.727 m (5' 8 ) Wt 107 kg (236 lb) SpO2 96% BMI 35.88 kg/m??? Smoking Status Former BSA 2.27 m??? Medications: Current Outpatient Medications: aspirin 81 mg EC tablet, in the morning., Disp: , Rfl: atorvastatin (Lipitor) 20 mg tablet, atorvastatin 20 mg tablet TAKE 1 TABLET BY MOUTH DAILY, Disp: , Rfl: citalopram (CeleXA) 20 mg tablet, citalopram 20 mg tablet TAKE 1 TABLET BY MOUTH EVERY DAY, Disp: , Rfl: donepezil (Aricept) 10 mg tablet, donepezil 10 mg tablet TAKE 1 TABLET BY MOUTH DAILY, Disp: , Rfl: fludrocortisone (Florinef) 0.1 mg tablet, 4 (four) times a week., Disp: , Rfl: gabapentin (Neurontin) 800 mg tablet, gabapentin 800 mg tablet TAKE 1 TABLET BY MOUTH DAILY, Disp: , Rfl: hydrocortisone (Cortef) 20 mg tablet, hydrocortisone 20 mg tablet TAKE 1 TABLET BY MOUTH IN THE MORNING then TAKE 1/2 (ONE-HALF) OF A TABLET BY MOUTH IN THE EVENING, Disp: , Rfl: levothyroxine (Synthroid, Levoxyl) 150 mcg tablet, levothyroxine 150 mcg tablet TAKE 1 TABLET BY MOUTH DAILY, Disp: , Rfl: lisinopril 5 mg tablet, Take 5 mg by mouth in the morning., Disp: , Rfl: memantine (Namenda) 10 mg tablet, memantine 10 mg tablet TAKE 1 TABLET BY MOUTH TWICE DAILY, Disp: , Rfl: metoprolol tartrate (Lopressor) 100 mg tablet, Take 1 tablet (100 mg) by mouth two times daily., Disp: 180 tablet, Rfl: 3 omeprazole (PriLOSEC) [address] capsule, omeprazole 40 mg capsule,delayed release, Disp: , Rfl: rOPINIRole XL (Requip XL) 8 mg 24 hr tablet, Take 1 tablet by mouth in the morning., Disp: , Rfl: semaglutide (Ozempic) 0.25 mg or 0.5 mg (2 mg/3 mL) pen injector, INJECT 0.5MG SUBCUTANEO (more content not included)... [facility] 01-06-2024 Note Pt is here for denta l clearance for tooth extraction. Pt has htn, hyperlipidemia. Since last visit pt had labs with lipids, carotid. Review of Systems All other systems reviewed and are negative. [facility] 06-24-2023 History of Present illness Narrative Associated Problem(s): AKASH (obstructive sleep apnea) (Per PCP.) Associated Problem(s): Cervical paraspinal muscle spasm (Continue home PT.) Associated Problem(s): Cognitive decline (Continue current regimen.) Associated Problem(s): Carotid stenosis, bilateral US carotids. Associated Problem(s): Neurogenic pain Change GBP to 800 bid -> tid. Associated Problem(s): Parkinson disease Stop med for now ad experimentum. If needs to restart, bid (before breakfast & before lunch). Images from the original note were not included. Outpatient Progress Note Prev Appt: Visit date not found Chief Complaint Patient presents with Parkinson's Disease Assessment and Plan - Parkinson disease ([facility]) Stop med for now ad experimentum. If needs to restart, bid (before breakfast & before lunch). Neurogenic pain Change GBP to 800 bid -> tid. Carotid stenosis, bilateral US carotids. Cognitive decline (Continue current regimen.) Cervical paraspinal muscle spasm (Continue home PT.) AKASH (obstructive sleep apnea) (Per PCP.) No orders of the defined types were placed in this encounter. Follow-Up - Follow up in about 6 months (around 12/23/2023). History of Present Illness, Associated Treatments and Results - Dx PN / PAIN / RLS / PMLD / CRAMPS / Hx R LFC Tx GBP 100 tid ([facility] (!!!)) (+ MVI) AEs Hx Pain, RLS - poorly controlled with [facility]'s dose. [facility] too [facility] . (!) Leg cramps - no complaints. Onset Semeiology Paraesthesiae, itching (variable), restlessness. Imaging Testing [facility] (03/2020) - PN pattern, R LFC Labs - A1c=6.4 (on metformin) Surgery Failed ropinirole 8 (ineff) ... tizanidine (dizzy) Dx CVD / COGNITION Tx donepezil 10 + memantine 10 bid AEs Hx Cognition - no changes, sx remain. CVD - no new complaints. Onset Semeiology Getting lost, losing train of thought, forgetting names. Imaging MR brain (05/2020, [facility]) - no mention of white matter lesion load US carotids (03/2020, [place]) - ~40% carotid bulbs CT head (03/2019, [place] ) - nl Testing Labs - protein C=33L S=48L (both likely due to warfarin) Surgery (CABG x 3). Failed donepezil 20 (N/V/diarrh) Dx PD Tx Sinemet 25/100 qeve (!) AEs Hx No complaints. Onset Semeiology Resting tremor R>>L hand, handwriting smaller. Imaging Testing Surgery Failed ropinirole 8 (ineff) Dx (AKASH) Tx BiPAP @ - per PCP AEs Hx AKASH - (Per PCP.) Failed Semeiology Circadian Noct oxim PSG PAPT ([place]) - AHI=2.2 @ MSLT MWT Imaging Testing Surgery Physical Exam - General appearance, mentation, extraocular movements, facial strength and movement, hearing, upper and lower extremity strength and tone, sensation to gross testing, coordination, and gait are normal or at baseline unless noted below. HEENT - ___, unchanged: ___, orig: ___ MS - ___, unchanged: ___, orig: ___ CNN - ___, unchanged: ___, orig: ___ Motor - ___, unchanged: ___, orig: ___ Sens - ___, unchanged: Vibr loss distal LEs, orig: ___ Reflex - ___, unchanged: Romberg 2+, orig: ___ Coord - ___, unchanged: Tremor R>L hand, pill rolling, tremor @ rest, orig: ___ Gait - ___, unchanged: Wide, orig: ___ Vestib - ___, unchanged: ___, orig: ___ MSK - Spasm - C mod L min, unchanged: ___, orig: ___ Other - ___, unchanged: ___, orig: ___ Vital Signs - Visit Vitals BP 131/72 Pulse 77 Ht 5' 6 Wt 225 lb BMI 36.32 kg/m Smoking Status Former BSA 2.18 m Review of Systems - . Const: Denies appetite change, fever, chills. Allergy: Denies medication reaction. Ocular: Denies visual acuity change. ENT: Denies hearing change. Endoc: Denies weight loss. Resp: Denies dyspnoea, wheezing. Cardiac: Denies angina, palpitations. GI: Denies nausea, vomiting. Haem: Denies bleeding. : Denies incontinence. MSK: Denies arthralgias, joint oedema. Derm: Denies rash, hair loss. Neuro: Denies ataxia, tremor. Also see HPI for elements of ROS documented therein and for details of positive findings, which shall supersede the foregoing. PMH, PSH, Allergies, FH, SH - Past Medical History: Diagnosis Date [facility]'s disease (CMS/HCC) Diabetes (CMS/HCC) GERD (gastroesophageal reflux disease) History of hepatitis B Hyperlipidemia (CMS/HCC) Hypertension (CMS/HCC) Prostate cancer (CMS/HCC) Sleep apnea Thyroid disease (CMS/HCC) Past Surgical History: Procedure Laterality Date APPENDECTOMY CARPAL TUNNEL RELEASE Bilateral CATARACT EXTRACTION 2004 CHOLECYSTECTOMY 2014 COLONOSCOPY 2009 NOSE SURGERY x 2 PLANTAR FASCIA SURGERY [place] MEDICATION MANAGEMENT Disease:Brigida's Disease AK RELEASE THENAR MUSCLE Right 06/13/2014 thumb trigger release RADICAL PROSTATECTOMY [facility] 2009 Disease:Prostate cancer TRIGGER FINGER RELEASE No Known Allergies Family History Problem Relation Name Age of Onset Diabetes Mother Hypertension Mother Heart disease Mother Diabetes Father Hypertension Father Heart disease Father Outpatient Encounter Medications as of 06/24/2023 Medication Sig Dispense Refill atorvastatin (Lipitor) 20 MG tablet Take 1 tablet by mouth in the morning. carbidopa-levodopa (Sinemet) 25-100 MG tablet Take 1 tablet by mouth in the morning and 1 tablet before bedtime. cholestyramine (Questran) 4 g packet use 1 (ONE) PACKET BY MOUTH DAILY citalopram (CeleXA) 20 MG tablet Take 1 tablet by mouth in the morning. donepezil (Aricept) 10 MG tablet Take 1 tablet by mouth in the morning. gabapentin (Neurontin) 800 MG tablet Take 1 tablet by mouth in the morning. hydrocortisone (Cortef) 20 MG tablet TAKE 1 TABLET BY MOUTH IN THE MORNING then TAKE 1/2 (ONE-HALF) OF A TABLET BY MOUTH IN THE EVENING levothyroxine (Synthroid, Levoxyl) 150 MCG tablet Take 1 tablet by mouth in the morning. lisinopril 5 MG tablet Take 1 tablet every day by oral route for 90 days. memantine (Namenda) 10 MG tablet Take 1 tablet by mouth in the morning and 1 tablet before bedtime. metFORMIN (Glucophage) 500 MG tablet Take 1 tablet by mouth in the morning and 1 tablet before bedtime. metoprolol tartrate (Lopressor) 25 MG tablet Take 3 tablets by mouth in the morning and 3 tablets before bedtime. omeprazole (PriLOSEC) [address] capsule Take 1 capsule every day by oral route. rOPINIRole XL (Requip XL) 8 MG 24 hr tablet Take 1 tablet by mouth in the morning. tiZANidine (Zanaflex) 4 MG tablet Take 1 tablet by mouth 2 (two) times a day as needed. No facility-administered encounter medications on file as of 06/24/2023. documented in this encounter [facility] 05-26-2023 Note Lipid abnormalities are well controlled, continue lipitor [facility] 05-26-2023 Note Hypertension is stab le in light of florinef for orthostasis that is currently well controlled and pt without c/o symptoms. Continue all meds [facility] 05-26-2023 Note Coronary artery dise ase is Stable Continue GDMT- Asa, lipitor, metoprolol continue risk factor modifications- heart healthy diet, regular exercise as tolerated and continue all medications. [facility] 05-26-2023 Note Patient here for 1 y ear follow up CAD, NSVT, and orthostatic hypotension. Had echo shortly after last apt in May 2022. Routine labs were done in Dec 2022. Denies chest pain, SOB, and lightheadedness. Review of Systems All other systems reviewed and are negative. [facility] 05-26-2023 Note [facility] CARDIOLOGY PROGR ESS NOTE HPI: Don Elkins is a 72 y.o. male here for routine annual F/U HPI 72 yo male history of coronary artery disease, prior bypass surgery, nonsustained ventricular tachycardia and orthostatic hypotension here in routine follow-up Patient here for 1 year follow up CAD, NSVT, and orthostatic hypotension. Had echo shortly after last apt in May 2022. Routine labs were done in Dec 2022. Denies chest pain, SOB, and lightheadedness. Overall states he feels well, denied any activity limiting symptoms. Denied palpitations, lightheadedness, dizziness or syncope. Overall states orthostasis is currently well controlled Review of Systems All other systems reviewed and are negative. Visit Vitals BP 148/90 (BP Location: Left arm, Patient Position: Sitting) Pulse 74 Ht 1.727 m (5' 8 ) Wt 104 kg (230 lb) SpO2 97% BMI 34.97 kg/m??? Smoking Status Former BSA 2.23 m??? No Known Allergies Medications: Current Outpatient Medications on File Prior to Visit Medication Sig Dispense Refill aspirin 81 mg EC tablet in the morning. atorvastatin (Lipitor) 20 mg tablet atorvastatin 20 mg tablet TAKE 1 TABLET BY MOUTH DAILY carbidopa-levodopa (Sinemet) 25-100 mg tablet carbidopa 25 mg-levodopa 100 mg tablet TAKE 1 TABLET BY MOUTH TWICE DAILY citalopram (CeleXA) 20 mg tablet citalopram 20 mg tablet TAKE 1 TABLET BY MOUTH EVERY DAY fludrocortisone (Florinef) 0.1 mg tablet 4 (four) times a week. gabapentin (Neurontin) 800 mg tablet gabapentin 800 mg tablet TAKE 1 TABLET BY MOUTH DAILY hydrocortisone (Cortef) 20 mg tablet hydrocortisone 20 mg tablet TAKE 1 TABLET BY MOUTH IN THE MORNING then TAKE 1/2 (ONE-HALF) OF A TABLET BY MOUTH IN THE EVENING levothyroxine (Synthroid, Levoxyl) 150 mcg tablet levothyroxine 150 mcg tablet TAKE 1 TABLET BY MOUTH DAILY lisinopril 5 mg tablet Take 5 mg by mouth in the morning. memantine (Namenda) 10 mg tablet memantine 10 mg tablet TAKE 1 TABLET BY MOUTH TWICE DAILY metoprolol tartrate (Lopressor) 25 mg tablet Take 75 mg by mouth in the morning and at bedtime. semaglutide (Ozempic) 0.25 mg or 0.5 mg (2 mg/3 mL) pen injector INJECT 0.5MG SUBCUTANEOUSLY EVERY WEEK FOR TYPE 2 DIABETES MELLITUS FOR DIABETES AND BLOOD SUGAR CONTROL. KEEP REFRIGERATED, HOWEVER, MAY BE KEPT AT ROOM TEMPERATURE FOR UP TO 56 DAYS cholestyramine (Questran) 4 gram packet cholestyramine (with sugar) 4 gram powder for susp in a packet use 1 (ONE) PACKET BY MOUTH DAILY donepezil (Aricept) 10 mg tablet donepezil 10 mg tablet TAKE 1 TABLET BY MOUTH DAILY metFORMIN (Glucophage) 500 mg tablet metformin 500 mg tablet TAKE 1 TABLET BY MOUTH TWICE DAILY omeprazole (PriLOSEC) [address] capsule omeprazole 40 mg capsule,delayed release rOPINIRole XL (Requip XL) 8 mg 24 hr tablet Take 1 tablet by mouth in the morning. tiZANidine (Zanaflex) 4 mg tablet tizanidine 4 mg tablet TAKE 1 TABLET BY MOUTH TWICE DAILY NEEDED No current facility-administered medications on file prior to visit. Physical Exam: Constitutional: Appearance: Normal appearance. Without apparent distress, obese HENT: Head: Normocephalic and atraumatic. Nose: Nose normal. Mouth/Throat: Mouth: Mucous membranes are moist. Eyes: Extraocular Movements: Extraocular movements intact. Conjunctiva/sclera: Conjunctivae normal. Neck: Vascular: No JVD. Cardiovascular: Rate and Rhythm: Normal rate and regular rhythm. Pulses: Dorsalis pedis pulses are 3 on the right side and 3on the left side. Posterior tibial pulses are 3 on the right side and 3 on the left side. Heart sounds: Normal heart sounds, S1 normal and S2 normal. Pulmonary: Effort: Pulmonary effort is normal. Breath sounds: Normal breath sounds. Abdominal: General: Bowel sounds are normal. Palpations: Abdomen is soft. Musculoskeletal: General: Normal range of motion. Cervical back: Normal range of motion. Right lower leg: No edema. Left lower leg: No edema. Skin: General: Skin is warm and dry. Capillary Refill: Capillary refill takes less than 2 seconds. Neurological: General: No focal deficit present. Mental Status: he is alert and oriented to person, place, and time. Psychiatric: Mood and Affect: Mood normal. Behavior: Behavior normal. Thought Content: Thought content normal. Judgment: Judgment normal. Labs: [facility] 01/06/23 CBC normal BUN 27, CR 1.60, GFR 43 K+ 4.8 normal, Mag 1.6 low 05/24/22 Chol 111, HDL 46, LDL 47, Trig 90- well controlled Labs 06/01/2021 CBC-hemoglobin 12.9, platelet 235, WBC 9.1 BMP-creatinine 1.89, BUN 23, K4.7, GFR 35 Mag-1.6 Echo 06/07/22 Global LVSF 55-60%, No significant wall motion abnormalities Normal diastolic function RV normal in size and function Mild AO regurg, Mild pulmonic regurg ECHO (01/23/21): preserved LVEF, EF >55%, indeterminate diastolic function, no significant RWMA, normal RV size a (more content not included)... [facility] 05-26-2023 Note Monitor with routine echocardiog sukhwinder [facility] 01-16-2023 Evaluation note Encounter Date Diagnosis Assessment Notes Dec, Chronic kidney disease, stage III (moderate) (ICD-10 - N18.30) He has a CKD due to the longstanding DM and HTN . His baseline serum creatinine is 1.5-1.6 mg/dL. I discussed with him the importance of good DM and HTN control to slow down the progression of CKD. Dec, Diabetes mellitus with chronic kidney disease (ICD-10 - E11.22) Blood sugars are within the acceptable range. Continue to follow with PCP for DM management. Continue Lisinopril for renal protection. 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 Continue current medication Dec, Secondary hyperparathyroidism (ICD-10 - N25.81) MBD parameters including calcium, phosphorus, vitamin D and PTH are within the goal Dec, Hypomagnesemia (ICD-10 - E83.42) He has hypomagnesemia due to the unclear etiology. I have prescribed him oral magnesium. [facility] Other 02-02-2023 Evaluation note* Encounter Date Diagnosis Assessment Notes Treatment Notes Treatment Clinical Notes Jun, Chronic kidney disea se, stage III (moderate) (ICD-10 - N18.30) He has a CKD due to the longstanding DM and HTN . His baseline serum creatinine is 1.5-1.6 mg/dL. I discussed with him the importance of good DM and HTN control to slow down the progression of CKD. Jun, Diabetes mellitus wi th chronic kidney disease (ICD-10 - E11.22) Blood sugars are within the acceptable range. Continue to follow with PCP for DM management. Continue Lisinopril for renal protection. I have explained to him that he may benefit with SGLT2 inhibitors including Farxiga, Jardiance or Invokana to slow down the progression of CKD. He can discuss this with his PCP. I have explained to him due to the history of adrenal insufficiency is not a candidate for Kerendia. Jun, Laz hernandez w cr kid I-IV (ICD-10 - I12.9) Blood pressure is controlled and he appears to be euvolemic. Continue current medication Jun, Secondary hyperparathyroidism (ICD-10 - N25.81) MBD parameters including calcium, phosphorus, vitamin D and PTH are within the goal Jun, Hypomagnesemia (ICD- 10 - E83.42) I have advised to take oral Magnesium every other day. [facility] Other 07-07-2022 Evaluation note* Encounter Date Diagnosis Assessment Notes Treatment Notes Treatment Clinical Notes Nov, Chronic kidney disea se, stage III (moderate) (ICD-10 - N18.30) He has a CKD due to the longstanding DM and HTN . His serum creatinine is 1.8 mg/dL above his baseline 1.4 mg/dL. His renal function has declined either due to hemodynamic changes or progression of CKD. I discussed with him the importance of good DM and HTN control to slow down the progression of CKD. Nov, Diabetes mellitus wi th chronic kidney disease (ICD-10 - E11.22) Blood sugars are within the acceptable range. Continue to follow with PCP for DM management. Continue Lisinopril for renal protection. I would recommend to decrease the dose of the metformin to 500 mg twice daily as his EGFR is below 45 mL/min. I have advised him to contact his PCP or water jet operator. Nov, Laz hernandez w cr kid I-IV (ICD-10 - I12.9) Blood pressure is controlled and he appears to be euvolemic. Continue current medication Nov, Secondary hyperparathyroidism (ICD-10 - N25.81) MBD parameters including calcium, phosphorus, vitamin D and PTH are within the goal [facility] Other 01-13-2022 Evaluation note* Encounter Date Diagnosis Assessment Notes Treatment Notes Treatment Clinical Notes May, Chronic kidney disea se, stage III (moderate) (ICD-10 - N18.30) He has a CKD due to the longstanding DM and HTN . His serum creatinine is 1.8 mg/dL above his baseline 1.4 mg/dL. His renal function has declined either due to hemodynamic changes or progression of CKD. I discussed with him the importance of good DM and HTN control to slow down the progression of CKD. May, Diabetes mellitus wi th chronic kidney disease (ICD-10 - E11.22) Blood sugars are within the acceptable range. Continue to follow with PCP for DM management. Continue Lisinopril for renal protection. I would recommend to decrease the dose of the metformin to 500 mg twice daily as his EGFR is below 45 mL/min. I have advised him to contact his PCP or water jet operator. May, Laz hy kid w cr kid I-IV (ICD-10 - I12.9) Blood pressure is controlled and he appears to be euvolemic. Continue current medication May, Secondary hyperparathyroidism (ICD-10 - N25.81) MBD parameters including calcium, phosphorus, vitamin D and PTH are within the goal May, Anemia of renal dise ase (ICD-10 - D63.1) Hemoglobin is within goal. We will check iron studies. [facility] Other [id number] NoteHNO ID: [id number] Author: Claudio Parker MD Service: ? Author Type: Physician Type: Progress Notes Filed: 12/21/2020 12:37 PM Note Text: PATIENT NAME: Don Elkins DATE: 12/20/2020 PRIMARY CARE PHYSICIAN: Dr. Sal Sabillon/Marj Demarco, [place] OTHER PHYSICIANS: Dr. Wilson, Dr. Cortez, Dr. Arvizu ([facility]) Portions of this encounter note have been copied from my note from 11/24/2020 and has been updated where appropriate, and reflect my current medical decision making from today. CC: This is a 70 year old male with a remote history of pulmonary embolism initially referred for evaluation of a hypercoagulable state, seen for scheduled follow-up. INTERIM HISTORY: Since the patient's initial visit here he has remained off Coumadin and currently takes aspirin 81 mg daily. He is tolerating this well with no evidence of bruising or bleeding. Since discontinuing the Coumadin he has had no signs of blood clots. Currently the patient does complain of dizziness, but apparently this been a long-term problem. No new complaints. Labs obtained since his last visit revealed no evidence of an underlying hypercoagulable condition (normal PT/PTT/thrombin time, homocystine level, protein C activity, Antithrombin antigen, factor V Leiden, functional protein S, anticardiolipin antibodies, and lupus anticoagulant). However, a prothrombin gene mutation was not obtained. MEDICATIONS: Current Outpatient Medications Medication Sig - atorvastatin (LIPITOR) 20 mg tablet Take 20 mg by mouth once daily. - carbidopa-levodopa orally disintegrating (PARCOPA) 25-100 mg per disintegrating tablet Take 1 tablet by mouth twice daily. - citalopram (CELEXA) 20 mg tablet Take 20 mg by mouth once daily. - donepezil HCl (DONEPEZIL ORAL) Take 10 mg by mouth twice daily. - GABAPENTIN ORAL Take 800 mg by mouth as directed. - insulin glargine,hum.rec.anlog (LANTUS SOLOSTAR U-100 INSULIN SUBCUTANEOUS) Inject subcutaneously. - levothyroxine 100 mcg cap Take 150 mcg by mouth once daily. - memantine (NAMENDA) 10 mg tablet Take 10 mg by mouth twice daily. - METOPROLOL TARTRATE ORAL Take 25 mg by mouth. - fish,bora,flax oils-om3,6,9no1 (OMEGA 3-6-9) 1,200 mg cap Take by mouth. - ropinirole HCl (ROPINIROLE ORAL) Take 8 mg by mouth once daily. - tiZANidine HCl 4 mg capsule Take 4 mg by mouth twice daily. - metFORMIN 500 mg tablet Take 500 mg by mouth twice daily with meals. - lisinopril 10 mg tablet Take 10 mg by mouth once daily. - simvastatin 20 mg tablet Take 20 mg by mouth daily at bedtime. - hydrocortisone 10 mg tablet Take 20 mg by mouth once daily. - fludrocortisone 0.1 mg tablet Take 0.1 mg by mouth once daily. - Aspirin 81 mg tab Take 81 mg by mouth. - Cholecalciferol, Vitamin D3, (VITAMIN D) 1,000 unit cap Take 1,000 Units by mouth once daily. - multivitamin tablet Take 1 tablet by mouth once daily. - Omeprazole 40 mg capsule Take 40 mg by mouth once daily. - meloxicam 15 mg tablet Take 15 mg by mouth once daily. - coenzyme Q10 (COQ-10) 100 mg cap Take 100 mg by mouth once daily. - CALCIUM CARBONATE/VITAMIN D3 (CALCIUM 500 + D, D3, ORAL) Take by mouth once daily. - DOCOSAHEXANOIC ACID/EPA (FISH OIL ORAL) Take by mouth once daily. - pramipexole 0.5 mg tablet Take 0.5 mg by mouth once daily. - predniSONE 5 mg tablet Take 5 mg by mouth once daily. - COMPOUNDED PRESCRIPTION L-Thyroxine 150 mcg daily - cholestyramine (QUESTRAN) 4 gram packet Questran powder once a day - diphenoxylate-atropine (LOMOTIL) 2.5-0.025 mg per tablet Take 2 tablets by mouth four times daily as needed. - cholestyramine (QUESTRAN) 4 gram packet Take 1 packet per day - fluconazole (DIFLUCAN) 200 mg tablet take one tablet three days prior to procedure - nystatin (MYCOSTATIN) 100,000 unit/mL suspension Five days prior to procedure: take one teaspoon by mouth four times daily. No current facility-administered medications for this visit. ALLERGIES: ALLERGIES No Known Allergies PAST MEDICAL HISTORY: PAST MEDICAL HISTORY Diagnosis Date - [facility]'s disease (HCC) - Coronary arteriosclerosis - DVT (deep venous thrombosis) (HCC) - Hepatitis B - HTN (hypertension) - Hyperthyroidism - AKASH (obstructive sleep apnea) - Prostate cancer (HCC) - Pulmonary embolism (HCC) PAST SURGICAL HISTORY: PAST SURGICAL HISTORY Procedure Laterality Date - APPENDECTOMY - CARPAL TUNNEL Bilateral - COLONOSCOP W/ OR W/O [facility] SPEC Colonoscopy - CORONARY ARTERY BYPASS GRAFT HX 03/19/2018 - LEFT HEART CATH,PERCUTANEOUS 03/15/2018 - PAST SURGICAL HISTORY OF Prostate removed - PAST SURGICAL HISTORY OF Cyst removal - REMOVAL GALLBLADDER - REMV CATARACT EXTRACAP,INSERT LENS FAMILY HISTORY: FAMILY HISTORY Problem Relation Age of Onset - Diabetes Mother - Heart Mother - Stroke Father - Heart Father - Cancer Brother Prostate- - Diabetes Brother - Heart Brother CHF - Diabetes Sis (more content not included)...[facility] 11-24-2020 NoteHNO ID: [id number] Author: Claudio Parker MD Service: ? Author Type: Physician Type: Progress Notes Filed: 11/24/2020 2:10 PM Note Text: PATIENT NAME: Don Elkins DATE: 11/24/2020 PRIMARY CARE PHYSICIAN: Dr. Sal Sabillon/Marj Demarco CNP OTHER PHYSICIANS: Dr. Wilson, Dr. Cortez, Dr. Arvizu ([facility]) HPI: This is a 70 year old male with a history of pulmonary embolism, referred for evaluation of a hypercoagulable state. Apparently the patient was diagnosed with bilateral pulmonary emboli in February 2018 when he presented with atypical chest pain. Initial chest CTA 03/15/2018 revealed multiple bilateral pulmonary emboli. At the time of presentation the patient was also diagnosed with unstable angina. He was hospitalized and anticoagulated with IV heparin. In preparation for CABG he underwent placement of a temporary IVC filter. After recovering from his CABG his anticoagulation was changed to Coumadin. A follow-up chest CTA obtained 06/13/2018 revealed resolution of the pulmonary emboli, and the IVC filter was removed. Since then he remained on Coumadin and tolerated it well. The patient was seen by his PCP on 11/17/2020 for routine follow-up, at which time it was elected to discontinue the Coumadin and start aspirin 81 mg daily for thromboprophylaxis. At the time of diagnosis apparently the patient had no evidence of DVT. There were no obvious factors that triggered his pulmonary emboli. His family history is negative. For evaluation of a possible hypercoagulable state a battery of labs were obtained on 11/23/2020, and results are currently pending. Currently the patient feels well. He denies any chest pain, shortness of breath, or other pulmonary symptoms. No leg swelling or other suspicious systemic symptoms. No fevers, night sweats, or weight loss. On low-dose aspirin he denies any significant bruising or bleeding. MEDICATIONS: Current Outpatient Medications Medication Sig - atorvastatin (LIPITOR) 20 mg tablet Take 20 mg by mouth once daily. - carbidopa-levodopa orally disintegrating (PARCOPA) 25-100 mg per disintegrating tablet Take 1 tablet by mouth twice daily. - citalopram (CELEXA) 20 mg tablet Take 20 mg by mouth once daily. - donepezil HCl (DONEPEZIL ORAL) Take 10 mg by mouth twice daily. - GABAPENTIN ORAL Take 800 mg by mouth as directed. - insulin glargine,hum.rec.anlog (LANTUS SOLOSTAR U-100 INSULIN SUBCUTANEOUS) Inject subcutaneously. - levothyroxine 100 mcg cap Take 150 mcg by mouth once daily. - memantine (NAMENDA) 10 mg tablet Take 10 mg by mouth twice daily. - METOPROLOL TARTRATE ORAL Take 25 mg by mouth. - fish,bora,flax oils-om3,6,9no1 (OMEGA 3-6-9) 1,200 mg cap Take by mouth. - ropinirole HCl (ROPINIROLE ORAL) Take 8 mg by mouth once daily. - tiZANidine HCl 4 mg capsule Take 4 mg by mouth twice daily. - cholestyramine (QUESTRAN) 4 gram packet Questran powder once a day - diphenoxylate-atropine (LOMOTIL) 2.5-0.025 mg per tablet Take 2 tablets by mouth four times daily as needed. - cholestyramine (QUESTRAN) 4 gram packet Take 1 packet per day - fluconazole (DIFLUCAN) 200 mg tablet take one tablet three days prior to procedure - nystatin (MYCOSTATIN) 100,000 unit/mL suspension Five days prior to procedure: take one teaspoon by mouth four times daily. - metFORMIN 500 mg tablet Take 500 mg by mouth twice daily with meals. - lisinopril 10 mg tablet Take 10 mg by mouth once daily. - simvastatin 20 mg tablet Take 20 mg by mouth daily at bedtime. - hydrocortisone 10 mg tablet Take 20 mg by mouth once daily. - fludrocortisone 0.1 mg tablet Take 0.1 mg by mouth once daily. - Aspirin 81 mg tab Take 81 mg by mouth. - Cholecalciferol, Vitamin D3, (VITAMIN D) 1,000 unit cap Take 1,000 Units by mouth once daily. - multivitamin tablet Take 1 tablet by mouth once daily. - Omeprazole 40 mg capsule Take 40 mg by mouth once daily. - meloxicam 15 mg tablet Take 15 mg by mouth once daily. - coenzyme Q10 (COQ-10) 100 mg cap Take 100 mg by mouth once daily. - CALCIUM CARBONATE/VITAMIN D3 (CALCIUM 500 + D, D3, ORAL) Take by mouth once daily. - DOCOSAHEXANOIC ACID/EPA (FISH OIL ORAL) Take by mouth once daily. - pramipexole 0.5 mg tablet Take 0.5 mg by mouth once daily. - predniSONE 5 mg tablet Take 5 mg by mouth once daily. - COMPOUNDED PRESCRIPTION L-Thyroxine 150 mcg daily No current facility-administered medications for this visit. ALLERGIES: ALLERGIES No Known Allergies PAST MEDICAL HISTORY: PAST MEDICAL HISTORY Diagnosis Date - Brigida's disease (HCC) - Coronary arteriosclerosis - DVT (deep venous thrombosis) (HCC) - Hepatitis B - HTN (hypertension) - Hyperthyroidism - AKASH (obstructive sleep apnea) - Prostate cancer (HCC) - Pulmonary embolism (HCC) PAST SURGICAL HISTORY: PAST SURGICAL HISTORY Procedure Laterality Date - APPENDECTOMY - CARPAL TUNNEL Bilateral - COLONOSCOP W/ OR W/O [facility] SPEC Colonos (more content not included)...[facility] Other Evaluation note* Diagnosis 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- Primary Neurogenic pain Cognitive decline Cervical paraspinal muscle spasm Spasm of muscle Carotid stenosis, bilateral Occlusion and stenosis of carotid artery without mention of cerebral infarction Stroke, lacunar (CMS/HCC) Unspecified cerebral artery occlusion with cerebral infarction Cerebral artery occlusion with cerebral infarction (CMS/HCC) Unspecified cerebral artery occlusion with cerebral infarction [facility] Onset Date Resolution Status Brigida disease acute CKD (chronic kidney disease) stage 3, GFR 30-59 ml/min acute [id number] acute Hypomagnesemia acute Secondary hyperparathyroidism acute Type 2 diabetes mellitus wit h diabetic chronic kidney disease acute [facility] Work Phone: Evaluation note* Diagnosis Onset Date Resolution Status Brigida disease acute CKD (chronic kidney disease) stage 3, GFR 30-59 ml/min acute [id number] acute Hypomagnesemia acute Secondary hyperparathyroidism acute Type 2 diabetes mellitus wit h diabetic chronic kidney disease acute Screening PSA (prostate specific antigen) acute [facility] Work Phone: History general Narrative - Reported* Type Description Date Medical History Addisons disease Medical History diabetes mallitus Medical History heart disease Medical History Hypothyroidism Medical History restless leg syndrome Medical History prostate cancer Medical History Parkinsons Medical History blood clots - lungs Surgical History Foot Surgery Surgical History carpal tunnel release bilateral Surgical History trigger finger release bilatera l hands Surgical History prostatectomy Surgical History back surgery Surgical History heart triple bypass surgery Surgical History cataracts, bilaterally Surgical History gall bladder Surgical History appendectomy Surgical History nasal surgeries x2 Surgical History ganglion cyst Hospitalization History see above Hospitalization History pneumonia Simmr Other Summary Purpose Family History Relationship Condition Age at Onset Recorded Date/T danny brother Hypertension Unknown Diabetes mellitus Unknown Unknown Malignant neoplasm Unknown father History of stroke Unknown Not Specified Diabetes mellitus Unknown Heart disease Unknown Hypertension Unknown sister Diabetes mellitus Unknown Relationship Condition Age at Onset Recorded Date/T danny brother Hypertension Unknown Diabetes mellitus Unknown Unknown Malignant neoplasm Unknown father History of stroke Unknown mother Diabetes mellitus Unknown Heart disease Unknown Hypertension Unknown sister Diabetes mellitus Unknown Advance Directives Documents on File Type Date Recorded Patient Circle Saw Operator Expl anation Advance Directives and Living Will Power of Transplant Surgeon Documents on File Type Date Recorded Patient Circle Saw Operator Expl anation Advance Directives and Living Will Power of Transplant Surgeon Latest Code Status on File Code Status Date Activated Date Inactivated Comments Full Code 04/09/2019 5:50 PM Full Code 04/08/2019 1:06 AM 04/09/2019 4:44 PM Latest Code Status on File Code Status Date Activated Date Inactivated Comments Full Code 04/08/2019 1:06 AM Advance Directive Response Recorded Date/ Time Advance Directives No January 07, 2018 9:40am Discharge Instructions * Instructions* Reid Mejia MD - 04/05/2019 medication given may have significant effects after discharge. Therefore on the day of surgery: 1) you should be accompanied by a responsible adult upon discharge and for 24 hours after surgery. Do not drive a motor vehicle, operate machinery, power tools or appliance, drink alcoholic beverages, or make critical decisions for 24 hours 2) Be aware of dizziness, which may cause a fall. Change positions slowly. 3) Eating: you may resume your regular diet but it is better to increase intake slowly with mild foods and working up to your regular diet. 4) Nausea/Vomiting: Nausea and vomiting may occur as you become more active or begin to increase food intake. If this should happen, decrease activity and return to liquids. 5) Pain: Your surgeon may have given you a prescription for pain medication. Take pain medication with food as prescribed. Pain medication may cause constipation, so drink plenty of fluids. You may need to use laxatives. 6) Ice: You may use a cool pack to operative site for 20 min 5-6 times a day as needed for comfort. 8) Dressing: Change dressing as frequently as needed to keep clean and dry. Remove all sticky tape in 5 days. May shower in three days. Do not put soap or soak on the incision until healed. 9) INCREASE ACTIVITY TOLERATED AND INSTRUCTED. GO BY HOW YOU FEEL. 10) See physical therapist when advised by your physician 11) Call your doctor at [phone] for an appointment (or follow up as scheduled). 12) If have an order for X-Rays have done within a week before your follow up appointment. ? Contact OFFICE IF o Increased redness, swelling, excess drainage, and/or pain to surgery site. As well as new onset fevers and or chills. These could signify an infection. o Calf or thigh tenderness to touch as well as increased swelling or redness. This could signify a clot formation. o Numbness or tingling to an area around the incision site or below the incision site (toes). Or ifthe operative extremity becomes cold, blue. o Any rash appears, increased or new onset nausea/vomiting occur. This may indicate a reaction to amedication. o Temp is 38.5 C (101F) 12) If you have any concerns or questions, please call OFFICE. The 24- hour phone is [phone] 13) If you are unable to contact your surgeon, in an emergency situation, go to the nearest hospital emergency room. 14) remove dressing and shower on Friday 15) no driving 16) resume Coumadin on Friday documented in this encounter* Instructions* Pj Stoner RN - 04/13/2019 Continue to follow blood thinner therapy and coumadin clinic. documented in this encounter* Discharge Instr - PAPITO* Mary Gonzalez RN - 04/09/2019 7:25 AM EST Continuity of Care Form Patient Name: Don Elkins : 1950 Admit date: 04/07/2019 Discharge date: 04/09/19 Code Status Order: Full Code Advance Directives: Advance Care Flowsheet Documentation Date/Time Healthcare Directive Type of Healthcare Directive Copy in Chart Healthcare Agent Appointed Healthcare Agent's Name Healthcare Agent's Phone Number 04/08/19 0139 No, patient does not have an advance directive for healthcare treatment -- -- -- -- -- Admitting Physician: Gerardo Fitzpatrick MD PCP: Sal Sabillon MD Discharging Nurse: [facility] Unit/Room#: W276/W276-01 Discharging Unit Phone Number: [phone] Emergency Contact: Extended Emergency Contact Information Primary Emergency Contact: Jacquelyn Elkins [address]: [address] [place] [address] [place] [address] Relation: Spouse Past Surgical History: Past Surgical History: Procedure Laterality Date APPENDECTOMY at age 10 CARDIAC SURGERY 03/2018 Triple bypass CARPAL TUNNEL RELEASE Bilateral CHOLECYSTECTOMY 2013 COLONOSCOPY CYST REMOVAL Bilateral ENDOSCOPY, COLON, DIAGNOSTIC EYE SURGERY Phaco IOL OS FINGER TRIGGER RELEASE Bilateral multiple HEMORRHOID SURGERY IVC FILTER INSERTION 02/2018 IVC FILTER REMOVAL 07/2018 LUMBAR SPINE SURGERY N/A 04/05/2019 L 3, L 4 LUMBAR DECOMPRESSION performed by Reid Mejia MD at [facility] OR NOSE SURGERY x 2 ORs PLANTAR FASCIA SURGERY Left PROSTATECTOMY 2011 Immunization History: There is no immunization history on file for this patient. 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 Cancer (HCC) C80.1 Restless leg syndrome G25.81 Former smoker, stopped smoking in distant past Z87.891 Tremors of nervous system R25.1 Thyroid disease E07.9 HTN (hypertension) I10 Hyperlipidemia E78.5 Acid reflux K21.9 Psoriasis L40.9 Depression F32.9 Sepsis (HCC) A41.9 CKD (chronic kidney disease) N18.9 Hyperkalemia E87.5 Sinus tachycardia R00.0 Metabolic acidosis, normal anion gap (NAG) E87.2 Nausea and vomiting R11.2 Postoperative fever R50.82 Elevated bilirubin R17 Type 2 diabetes mellitus with hyperglycemia, with long-term current use of insulin (HCC) E11.65, Z79.4 Isolation/Infection: Isolation No Isolation Patient Infection Status None to display Nurse Assessment: Last Vital Signs: BP (!) 126/44 Pulse 92 Temp 98.2 F (36.8 C) (Oral) Resp 18 Ht 5' 7 (1.702 m) Wt 250 lb 3.6 oz (113.5 kg) SpO2 98% BMI 39.19 kg/m Last documented pain score (0-10 scale): Pain Level: 3 Last Weight: Wt Readings from Last 1 Encounters: 04/09/19 250 lb 3.6 oz (113.5 kg) Mental Status: oriented IV Access: - None Nursing Mobility/ADLs: Walking Independent Transfer Independent Bathing Independent Dressing Independent Toileting Independent Feeding Independent Scalemaker Independent Med Delivery whole Wound Care Documentation and Therapy: Elimination: Continence: Bowel: Yes Bladder: Yes Urinary Catheter: None Colostomy/Ileostomy/Ileal Conduit: No Date of Last BM: 04/09/19 Intake/Output Summary (Last 24 hours) at 04/09/2019 0725 Last data filed at 04/09/2019 0449 Gross per 24 hour Intake 820 ml Output Net 820 ml I/O last 3 completed shifts: In: 820 [P.O.:820] Out: - Safety Concerns: At Risk for Falls Impairments/Disabilities: None Nutrition Therapy: Current Nutrition Therapy: - Oral Diet: General Routes of Feeding: Oral Liquids: Thin Liquids Daily Fluid Restriction: no Last Modified Barium Swallow with Video (Video Swallowing Test): not done Treatments at the Time of Hospital Discharge: Respiratory Treatments: none Oxygen Therapy: none Ventilator: - No ventilator support Rehab Therapies: Physical Therapy and Occupational Therapy Weight Bearing Status/Restrictions: No weight bearing restirctions Other Medical Equipment (for information only, NOT a DME order): {EQUIPMENT:[id number]} Other Treatments: Patient's personal belongings (please select all that are sent with patient): glasses,cellphone, scrap charger, pants,shrit, slippers, jacket RN SIGNATURE: MANAGEMENT/SOCIAL WORK SECTION Inpatient Status Date: Readmission Risk Assessment Score: Readmission Risk Risk of Unplanned Readmission: 23 Discharging to Facility/ [facility]: [facility] Address: Phone: Fax: Dialysis Facility (if applicable) Name: Address: Dialysis Schedule: Phone: Fax: Slip Cover Maker/Evp Sales signature: ICIAN SECTION Prognosis: Good Condition at Discharge: Stable Rehab Potential (if transferring to Rehab): Good Recommended Labs or Other Treatments After Discharge: Adjust insulin as needed; endocrine consult if necessary; monitor for fevers Physician Certification: I certify the above information and transfer of Don Elkins is necessary for the continuing treatment of the diagnosis listed and that he requires Acute Rehab for less 30 days. Update Admission H&P: No change in H&P PHYSICIAN SIGNATURE: documented in this encounter History of Present Illness * Anastasiia Burnett RN - 04/05/2019 3:20 PM EST Ambulated to the bathroom, gait steady, voided QS. Incision clean and dry. documented in this encounter* Marcelina Camacho - 04/13/2019 11:34 AM EST [facility] Acute Rehabilitation MUSIC THERAPY Date: 04/13/2019 Patient Name: Don Elkins Date of : 1950 (68 y.o.) Gender: male Diagnosis: Impaired mobility and ADL's d/t severe lumbar spinal stenosis Referring Practitioner: Dr. Ellie Juárez RESTRICTIONS/PRECAUTIONS: Restrictions/Precautions: Fall Risk Vision: Impaired Hearing: Within functional limits Note: Patient declined participating in individual music therapy session at 1010 stating Thanks, but since I'm leaving today, I wanted to go say thank you to everyone in rehab. But thank you anyhow. URIEL Martinez 04/13/2019 * Pj Stoner RN - 04/13/2019 9:58 AM EST Pt has requested to be D/C d[facility], pt transportation is over an hour away. Messaged the covering physicians and scheduled f/u appts. Pt was made independent in his room, pt was educated and a sign was posted outside of his room. Removed fentanyl patch before D/C. Gave pt D/C instructions and education. All questions were answered before D/C. Pt is sitting in chair in no distress at this time. * Ny Arana OTR/Atilio - 04/13/2019 8:56 AM EST [facility] OCCUPATIONAL THERAPY DISCHARGE SUMMARY- REHAB Date: 04/13/2019 Patient Name: Don Elkins Account: [id number] : 1950 (68 y.o.) Room: [place] [address] Diagnosis: Impaired mobility and ADL's d/t severe lumbar spinal stenosis Past Medical History: Diagnosis Date Acute non-ST elevation myocardial infarction (NSTEMI) ([facility]) Acute post-hemorrhagic anemia Acute respiratory insufficiency following thoracic surgery Bronchiectasis (HCC) CAD (coronary artery disease) 03/2018 Triple bypass Calculus of urinary tract Cancer ([facility]) prostatectomy Chronic back pain CKD (chronic kidney disease) COPD (chronic obstructive pulmonary disease) (HCC) Diabetes mellitus (HCC) dx 2016 Diverticulosis of large intestine DVT (deep venous thrombosis) ([facility]) GERD (gastroesophageal reflux disease) Hx of blood clots 02/2018 PE Hyperlipidemia meds > 20 yrs Hypertension meds > 20 yrs Lumbar stenosis with neurogenic claudication Primary adrenocortical insufficiency (HCC) Pulmonary embolism (HCC) 06/23/2018 2018 / has been on Coumadin since / Pulmonary embolism without acute cor pulmonale (HCC) Restless leg syndrome RLS (restless legs syndrome) Sleep apnea Thyroid disease meds > 25 yrs Tubular adenoma of colon Past Surgical History: Procedure Laterality Date APPENDECTOMY at age 10 CARDIAC SURGERY 03/2018 Triple bypass CARPAL TUNNEL RELEASE Bilateral CHOLECYSTECTOMY 2013 COLONOSCOPY CYST REMOVAL Bilateral ENDOSCOPY, COLON, DIAGNOSTIC EYE SURGERY Phaco IOL OS FINGER TRIGGER RELEASE Bilateral multiple HEMORRHOID SURGERY IVC FILTER INSERTION 02/2018 IVC FILTER REMOVAL 07/2018 LUMBAR SPINE SURGERY N/A 04/05/2019 L 3, L 4 LUMBAR DECOMPRESSION performed by Reid Mejia MD at [facility] OR NOSE SURGERY x 2 ORs PLANTAR FASCIA SURGERY Left PROSTATECTOMY 2011 Precautions: Restrictions/Precautions: Fall Risk Spinal Precautions: Limit bending/lifting/twisting to within tolerable range; lumbar decompression on 04/05 Social/Functional History: Social/Functional History Lives With: Spouse Type of Home: House Home Layout: Able to Live on Main level with bedroom/bathroom(Basement workshop) Home Access: Stairs to enter without rails Entrance Stairs - Number of Steps: 1, 3 steps in from garage with rail Bathroom Shower/Tub: Walk-in shower, Tub/Shower unit Bathroom Equipment: Grab bars in shower, Shower chair, Hand-held shower Home Equipment: Cane, Rolling walker ADL Assistance: Independent Homemaking Assistance: Independent Ambulation Assistance: Independent(No AD) Transfer Assistance: Independent Active Driver Trainer: Yes 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 Pt reports to this therapist that he completes most of the housework, does the shopping, cooking and cleaning. Current Functional Status: ADL Feeding: Independent Grooming: Independent UE Bathing: Modified independent LE Bathing: Modified independent UE Dressing: Independent LE Dressing: Modified independent Toileting: None(pt. did not need to go) Additional Comments: Patient was able to doff and don shoes and socks with no difficulty while seated on the side of the mat Toilet Transfers Toilet - Technique: Ambulating Equipment Used: Grab bars Toilet Transfer: Modified independent Tub Transfers Tub - Transfer Type: To and From Tub - Transfer To: Shower seat with back Tub - Technique: Ambulating Tub Transfers: Modified independence Tub Transfers Comments: grab bars and shower chair Shower Transfers Shower - Transfer From: (No device) Shower - Transfer Type: To and From Shower - Transfer To: Standing Shower - Technique: Ambulating Shower Transfers: Modified independence Shower Transfers Comments: use of grab bars Orientation Status: Orientation Overall Orientation Status: Within Normal Limits Cognition Status: Cognition Overall Cognitive Status: WF Arousal/Alertness: Appropriate responses to stimuli Following Commands: Follows multistep commands with repitition Attention Span: Appears intact Memory: Decreased short term memory Safety Judgement: Decreased awareness of need for safety Problem Solving: Assistance required to generate solutions, Assistance required to implement solutions Insights: Decreased awareness of deficits Initiation: Does not require cues Sequencing: Does not require cues Cognition Comment: 6 7 7 7 6 Perception Status: Perception Overall Perceptual Status: WFL Sensation Status: Sensation Overall Sensation Status: WFL Vision and Hearing Status: Vision Vision: Impaired Vision Exceptions: Wears glasses at all times Hearing Hearing: Within functional limits UE Function Status: ROM: LUE AROM (degrees) LUE AROM : WFL Left Hand AROM (degrees) Left Hand AROM: WFL RUE AROM (degrees) RUE AROM : WFL Right Hand AROM (degrees) Right Hand AROM: WFL Strength: LUE Strength Gross LUE Strength: WFL L Hand General: 4/5 LUE Strength Comment: 4/5 RUE Strength Gross RUE Strength: WFL R Hand General: 4/5 RUE Strength Comment: 4/5 Coordination, Tone, Quality of Movement: Tone RUE RUE Tone: Normotonic Tone LUE LUE Tone: Normotonic Coordination Movements Are Fluid And Coordinated: Yes D/C Recommendations: Equipment Recommendations: OT D/C Equipment Equipment Needed: No OT Follow Up: OT D/C RECOMMENDATIONS REQUIRES OT FOLLOW UP: No Home Exercise Program Provided: No If yes, type of HEP: Electronically signed by: ILIANA Barbosa OTR/L 04/13/2019, 8:56 AM * Rox Vergara OTA - 04/13/2019 8:41 AM EST Occupational Therapy Facility/Department: [facility] Daily Treatment Note NAME: Don Elkins : 1950 Date of Service: 04/13/2019 Discharge Recommendations: Continue to assess pending progress Assessment Activity Tolerance Activity Tolerance: Patient Tolerated treatment well Safety Devices Safety Devices in place: Yes Type of devices: All fall risk precautions in place Patient Diagnosis(es): There were no encounter diagnoses. has a past medical history of Acute non-ST elevation myocardial infarction (NSTEMI) ([facility]), Acute post-hemorrhagic anemia, Acute respiratory insufficiency, Bronchiectasis (HCC), CAD (coronary artery disease), Calculus of urinary tract, Cancer (HCC), Chronic back pain, CKD (chronic kidney disease), COPD (chronic obstructive pulmonary disease) ([facility]), Diabetes mellitus (HCC), Diverticulosis of large intestine, DVT (deep venous thrombosis) ([facility]), GERD (gastroesophageal reflux disease), Hx of blood clots, Hyperlipidemia, Hypertension, Lumbar stenosis with neurogenic claudication, Primary adrenocortical insufficiency (HCC), Pulmonary embolism ([facility]), Pulmonary embolism without acute cor pulmonale ([facility]), Restless leg syndrome, RLS (restless legs syndrome), Sleep apnea, Thyroid disease, and Tubularadenoma of colon. has a past surgical history that includes Carpal tunnel release (Bilateral, ); Hemorrhoid surgery (); Cardiac surgery (03/2018); Prostatectomy (2011); Colonoscopy; Endoscopy, colon, diagnostic; Cholecystectomy (2013); eye surgery; Appendectomy; cyst removal (Bilateral, ); Nose surgery (); Plantar fascia surgery (Left, ); Finger trigger release (Bilateral, ); IVC filter insertion (02/2018); IVC filter removal (07/2018); and Lumbar spine surgery (N/A, 04/05/2019). Restrictions Restrictions/Precautions Restrictions/Precautions: Fall Risk Position Activity Restriction Spinal Precautions: Limit bending/lifting/twisting to within tolerable range; lumbar decompression on 04/05 Subjective General Chart Reviewed: Yes Patient assessed for rehabilitation services?: Yes Family / Caregiver Present: No Referring Practitioner: Dr. Ellie Juárez Diagnosis: Impaired mobility and ADL's d/t severe lumbar spinal stenosis Pain Assessment Pain Assessment: 0-10 Pain Level: 0 Pre Treatment Pain Screening Pain at present: 0 Scale Used: Numeric Score Intervention List: Patient able to continue with treatment Vital Signs Patient Currently in Pain: No Orientation Objective Pt. completed discharge adl at below status. ADL Feeding: Independent Grooming: Independent UE Bathing: Modified independent LE Bathing: Modified independent UE Dressing: Independent LE Dressing: Modified independent Toileting: None(pt. did not need to go) Toilet Transfers Toilet - Technique: Ambulating Equipment Used: Grab bars Toilet Transfer: Modified independent Shower Transfers Shower - Transfer Type: To and From Shower - Transfer To: Standing Shower - Technique: Ambulating Shower Transfers: Modified independence Cognition Overall Cognitive Status: [facility] Cognition Comment: 7 7 7 6 Pt. completed independent in the room assessment as well with being able to open/close bathroom door, open/close main door, open/close privacy curtain, toilet transfer, identify how to call the nursefor help if he needed it, and room was checked for safety as well. Pt. did complete all tasks independently with good safety. Plan Plan Times per week: 5-7 Plan weeks: <1 week Current Treatment Recommendations: Safety Education & Training, Patient/Caregiver Education & Training, Equipment Evaluation, Education, & procurement, Self-Care / ADL, Home Management Training, Neuromuscular Re- education, Pain Management Plan Comment: Continue with OT POC Goals Patient Goals Patient goals : To start moving again. Therapy Time Individual Concurrent Group Co-treatment Time In 0800 Time Out 0840 Minutes 40 ADL trainin minutes YUDI Hughes Gail Kerr RN - 04/13/2019 8:35 AM [facility] INPATIENT REHABILITATION INDEPENDENT IN RO[facility] Date: 04/09/2019 Date: 04/13/2019 Patient Name: Don Elkins : 1950 (68 y.o.) Gender: male Diagnosis: Impaired Mobility and ADLs d/t severe lumbar spinal stenosis Discipline pre admission summary: Nursing: Patient orientation to the room/suite: [x] Yes [] No (Safety checks to consider: Oxygen, Fire Alarm, Stove safety, Call alarm, Bed alarm, Bed power, TV, Phone) 1. Pt physical ability to be independent in room/suite: [x] Yes [] No Comment: 2. Pt demonstrates cognitive ability to be independent in room/suite: [x] Yes [] No Comment: 3. Pt demonstrates emotional ability to be independent in room/suite: [x] Yes [] No Comment: 4. Special Considerations/Equipment if needed: [x] NA Comment: Recommend independent in room/suite: [x] Yes [] No Signature: Occupational Therapy: 1. Pt physical ability to be independent in room/suite: [x] Yes [] No Comment: 2. Pt demonstrates cognitive ability to be independent in room/suite: [x] Yes [] No Comment: 3. Pt demonstrates emotional ability to be independent in room/suite: [x] Yes [] No Comment: 4. Special Considerations/Equipment if needed: [x] NA Comment: Recommend independent in room/suite: [x] Yes [] No Signature: Physical Therapy: 1. Pt physical ability to be independent in room/suite: [x] Yes [] No Comment: 2. Pt demonstrates cognitive ability to be independent in room/suite: [x] Yes [] No Comment: 3. Pt demonstrates emotional ability to be independent in room/suite: [x] Yes [] No Comment: 4. Special Considerations/Equipment if needed: [x] NA Comment: Recommend independent in room/suite: [x] Yes [] No Physician: The recommendations and comments have been reviewed. Physician Signature: Dr Ellie Juárez DO * RosaLulu Maria Luisa, [facility] [place] - 04/13/2019 8:33 AM EST Clinical Pharmacy Note Warfarin consult follow-up Recent Labs 04/13/19 0536 INR 2.3 No results for input(s): HGB, HCT, PLT in the last 72 hours. Significant drug:drug interactions: New warfarin drug-drug interactions: None Discontinued drug-drug interactions: Fludrocortisone Current warfarin drug-drug interactions: Acetaminophen, citalopram, enoxaparin, hydrocortisone, levothyroxine, ropinirole, simvastatin Notes: Date INR Warfarin Dose 04/08/19 1.2 10 mg 04/09/19 1.1 10 mg 04/10/19 1.1 15 mg 04/11/19 1.6 10 mg 04/12/19 2.1 7.5 mg 04/13/19 2.3 5 mg INR therapeutic at 2.3 today. Give warfarin 5 mg today to keep INR within goal range of 2-3. This is consistent with patient's usual home dosage regimen of warfarin 5 mg on Tuesdays. Recommend discontinuing the Lovenox since INR has reached therapeutic level. Daily PT/INR until stable within therapeutic range. Lulu Lee PharmD 04/13/2019 8:33 AM Kirsten Romano RN - 04/13/2019 5:04 AM EST Pt denied any pain. LBM 04/12/19. OT at HS was 154 , 1 units of Humalog given along with 20 units of Lantus. Pt slept well with CPAP. Will continue to monitor. Jaspreet Park, DHIRAJ - 04/12/2019 2:54 PM STE[facility] Hoyt [facility]ology Discharge Report Patient: Don Elkins : 1950 Date: 04/12/2019 STATUS AT INITIATION OF THERAPY: Initial speech-language assessment complete on 04/10/19 revealed: Cognitive Diagnosis: Pt presents with moderate cognitive-linguistic deficits characterized by high-level word finding, paragraph comprehension, short-term memory, verbal reasoning, and problem solving deficits DIET: regular consistencies with thin liquids Comprehension: 4- Minimal assist Expression: 4- Minimal assist Problem Solvin- Minimal assist Memory: 3- Moderate assist Treatment Area(s): Cognition Progress made: Pt participated in one speech therapy session with a focus on cognitive improvement and compensatory strategies. Pt reports he has returned to his baseline cognitive-communicative functioning, as he has had learning difficulties and Dyslexia at baseline. Pt was able to complete functional problem solving and memory tasks WFL. No further ST intervention is warranted at this time, as highest practical level has been achieved and pt politely declines further intervention. Short-term Goals Timeframe for Short-term Goals: 3-5x/week of individual and/or group treatment sessions, as applicable, during LOS or until goals met Goal 1: To increase safety awareness and judgment for safe completion of ADLs secondary to pt's cognitive deficits, pt will complete mod-high level problem solving tasks related to ADLs with 80% accuracy and min cues. Goal 2: To increase independence for functional activities for home and community, pt will completemid level executive functioning tasks (i.e. Path finding, scheduling appointments, prioritizing tasks) with 80% acc given min cues. Goal 3: To promote awareness and functionality of compensatory strategies in light of pt's cognitive deficits, pt will recall 3 memory strategies with min cues and utilize them in structured tasks in80% of opportunities with min cues. Goal 4: To increase safety awareness and judgment for safe completion of ADLs secondary to pt's cognitive deficits, pt will complete abstract reasoning tasks (i.e. Word deduction, convergent and divergent naming, similarities/differences) with 80% accuracy and min cues. Goal 5: Within 1-[address] days [address] POC, pt's functional reading/writing skills will be assessed in relation to executive functioning (e.g. bill paying, reading rx labels, completing personal information), with additional goals added to pt's POC as deemed necesary by treating 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. Long-term Goals Timeframe for Long-term Goals: 3-5x/week of individual and/or group treatment sessions, as applicable, during LOS or until goals met Goal 1: Pt will improve his Cognition from Min A assist to Mod A for adequate functional recall andsafety awareness for the home and community settings. Compensatory Swallowing Strategies: Alternate solids and liquids STATUS AT DISCHARGE: DIET: regular consistencies with thin liquids Comprehension: 5- Supervision/Stand by cues Expression: 5- Supervision/Stand by cues Problem Solvin- Supervision/Stand by cues Memory: 5- Supervision/Stand by cues Functional Status at time of Discharge: Cognition: Patient demonstrates minimal cognitive deficits. Communication: Patient demonstrates minimal communication deficits. Language: Patient demonstrates minimal language deficits. Motor Speech: Patient demonstrates no motor speech deficits. Swallow: Patient demonstrates no dysphagia. Patient is discharged to Home with spouse [] Recommend continued speech therapy [x] Speech Therapy is no longer warranted Signature: Jaspreet Frost CCC-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, Date: 04/12/2019, Time: 2:54 PM Sheila Howe, [employer] - 04/12/2019 1:01 PM EST [facility] - Acute Rehabilitation RECREATIONAL THERAPY Initial Evaluation Date: 04/12/2019 Patient Name: Don Elkins Date of : 1950 (68 y.o.) Gender: male Diagnosis: Impaired mobility and ADL's d/t severe lumbar spinal stenosis Referring Practitioner: Dr. Ellie Juárez RESTRICTIONS/PRECAUTIONS: Restrictions/Precautions: Fall Risk Vision: Impaired Hearing: Within functional limits Patient seen at: [address] Recreation Therapist received referral and chart reviewed SUBJECTIVE: Patient reports that his calls him the energizer dorothy. Prior to admission, patient engaged in leisure/recreation on a regular basis: always Patient reports he/she is comfortable in: comfortable with both scenarios Patient reports pain is a chronic issue OBJECTIVE: Pt is in bed. Oxygen No Ability to provide information regarding leisure and recreation interests: No issues Leisure Interest Survey: Solitaire Computers/Internet, Likes music, Likes animals, Video/online games and Television Sports/Physical Activity No regular physical activity. 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 Past leisure interests: card/board games Future leisure interests: Emotional Observed/noted: Cooperative and Pleasant Affect: Appropriate Comments: Today s Session included: Increased Socialization, Provided active listening and Benefits of the patient's leisure and recreation pursuits being utilized as stress relievers Recommendations to utilize Recreation Therapy services, its supported services and groups include: [facility], Pet Therapy, Individual Music Therapy session, Independent leisure/recreational opportunities and activities for in room use, Coping skills, Stress management tools and Recreation Therapy Socialization Group Comment(s): ASSESSMENT Patient tolerated today s session: good Prior Activity Level: Moderately active Leisure Awareness: good Lack of interest in the following: Patient declines ART THERAPY SERVICES services. and Patient declines socialization group. Barriers to Leisure Participation: General Weakness and Endurance Comment(s): Plan Prior to discharge from rehab program: COMPLETE Patient will express interest in participating in the Pet Therapy program during their hospitalization. COMPLETE Patient will indicate current and prior leisure/recreational interests and state those they will follow through with post discharge. COMPLETE Patient will be provided with an independent leisure activity/coping skills tool for in room use. COMPLETE Patient encouraged to use their own personal independent leisure activity for in room use.He/she brought smartphone. COMPLETE Patient will be provided with a large print cognitive/orientation/puzzle handout 5x/week. COMPLETE Patient will be educated on various alternative pain management techniques which can include both techniques done independently and/or in group programs. COMPLETE Patient will express interest in participating in Music Therapy during his hospitalization. Patient provided with the following accessible and independently used recreation/leisure resources when in hospital room: 5 Days week large print orientation/puzzle activity handout and Word Searches, crossword puzzles EDUCATION Was new education provided: Yes Learner: Patient Education provided: [facility] Method of Education: Discussion Evaluation of Patient s Response to Education: Verbalized Understanding and No Family Present FIMS Comprehension: 6 - Complex ideas 90% or device (hearing aid or glasses- if patient is primarily a visual learner) Expression: 6 - Device used to express complex ideas/needs Social Interaction: 7 - Patient has appropriate behavior/relations 100% of the time Problem Solvin - Patient able to solve simple/routine tasks Memory: 5 - Patient requires prompting with stress/unfamiliar situations Electronically signed by: YUDELKA Negro Date: 04/12/2019 Jaspreet Omalley, DHIRAJ - 04/12/2019 11:00 AM STEFFI Hoyt Facility/Department: [facility] Speech Language Pathology Treatment Note Don Elkins 1950 [id number] Rehab Dx/Hx: Impaired gait and mobility [R26.89] Precautions: falls Medical Dx: Impaired gait and mobility [R26.89] Speech Dx: Cognitive Impairment 04/12/2019 Subjective: Pt initially said, No offense but I really don't need speech therapy. I'm what you call a functioning illiterate. I have been dyslexia my whole life and just not good at school. Things take me longer but I take my time and get by. Pt denies any recent changes in his thinking, memory, focus, word finding, etc. Alert, Cooperative, Pleasant, Self Limiting and Distractible Interventions used this date: Cognitive Skill Development and Instruction in Compensatory Strategies Objective/Assessment: Patient progressing towards goals: Short-term Goals: Goal 1: To increase safety awareness and judgment for safe completion of ADLs secondary to pt's cognitive deficits, pt will complete mod-high level problem solving tasks related to ADLs with 80% accuracy and min cues. Pt was able to solve mid-high level problem solving tasks related to financial and time management with 75% accuracy. When 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 requested pt double check his work, he was able to self correct to 100%. Goal 2: To increase independence for functional activities for home and community, pt will completemid level executive functioning tasks (i.e. Path finding, scheduling appointments, prioritizing tasks) with 80% acc given min cues. 100% given extra time to complete the task. Goal 3: To promote awareness and functionality of compensatory strategies in light of pt's cognitive deficits, pt will recall 3 memory strategies with min cues and utilize them in structured tasks in80% of opportunities with min cues. Goal 4: To increase safety awareness and judgment for safe completion of ADLs secondary to pt's cognitive deficits, pt will complete abstract reasoning tasks (i.e. Word deduction, convergent and divergent naming, similarities/differences) with 80% accuracy and min cues. Goal 5: Within 1-5 days of implementing the ST POC, pt's functional reading/writing skills will be assessed in relation to executive functioning (e.g. bill paying, reading rx labels, completing personal information), with additional goals added to pt's POC as deemed necesary by treating 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. Pt was able to read at the paragraph level with 100% accuracy. No difficulty writing sentences or functional check writing tasks. Pt did say that his Dyslexia causes him to be slower with writing tasks. 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 Pt was able to complete a personal form with 100% acc independently. Treatment/Activity Tolerance: Patient tolerated treatment well Plan: Discharge per pt's request Pain: Patient demonstrated no s/s of pain. Patient/Caregiver Education: Patient educated on session and progression towards goals. Patient stated verbal understanding of directions. Safety Devices: All fall risk precautions in place Comprehension: 5- Supervision/Stand by cues Expression: 5- Supervision/Stand by cues Problem Solvin- Supervision/Stand by cues Memory: 5- Supervision/Stand by cues Therapy Time Time in: 1100 Time out: 1130 Minutes: 30 Signature: * Brittney Summers OTR/Atilio - 04/12/2019 10:31 AM EST Occupational Therapy Facility/Department: [facility] Daily Treatment Note NAME: Don Elkins : 1950 Date of Service: 04/12/2019 Discharge Recommendations: Continue to assess pending progress Assessment Activity Tolerance Activity Tolerance: Patient Tolerated treatment well Safety Devices Safety Devices in place: Yes Type of devices: All fall risk precautions in place Patient Diagnosis(es): There were no encounter diagnoses. has a past medical history of Acute non-ST elevation myocardial infarction (NSTEMI) ([facility]), Acute post-hemorrhagic anemia, Acute respiratory insufficiency, Bronchiectasis ([facility]), CAD (coronary artery disease), Calculus of urinary tract, Cancer ([facility]), Chronic back pain, CKD (chronic kidney disease), COPD (chronic obstructive pulmonary disease) ([facility]), Diabetes mellitus (HCC), Diverticulosis of large intestine, DVT (deep venous thrombosis) ([facility]), GERD (gastroesophageal reflux disease), Hx of blood clots, Hyperlipidemia, Hypertension, Lumbar stenosis with neurogenic claudication, Primary adrenocortical insufficiency ([facility]), Pulmonary embolism ([facility]), Pulmonary embolism without acute cor pulmonale (HCC), Restless leg syndrome, RLS (restless legs syndrome), Sleep apnea, Thyroid disease, and Tubularadenoma of colon. has a past surgical history that includes Carpal tunnel release (Bilateral, ); Hemorrhoid surgery (); Cardiac surgery (03/2018); Prostatectomy (2011); Colonoscopy; Endoscopy, colon, diagnostic; Cholecystectomy (2013); eye surgery; Appendectomy; cyst removal (Bilateral, ); Nose surgery (); Plantar fascia surgery (Left, ); Finger trigger release (Bilateral, ); IVC filter insertion (02/2018); IVC filter removal (07/2018); and Lumbar spine surgery (N/A, 04/05/2019). Restrictions Restrictions/Precautions Restrictions/Precautions: Fall Risk Position Activity Restriction Spinal Precautions: Limit bending/lifting/twisting to within tolerable range; lumbar decompression on 04/05/19 Subjective Patient reported that his bought the lower extremity dressing equipment but he might not need it because he was able to draw his feet up to him to doff and don his socks. General Chart Reviewed: Yes Patient assessed for rehabilitation services?: Yes Family / Caregiver Present: No Referring Practitioner: Dr. Ellie Juárez Diagnosis: Impaired mobility and ADL's d/t severe lumbar spinal stenosis Pain Assessment Pain Level: 4 Pain Location: Back Pain Orientation: Lower Pain Descriptors: (stiff) Pre Treatment Pain Screening Pain at present: 4 Intervention List: Patient able to continue with treatment;Patient declined any intervention Orientation Objective ADL Additional Comments: Patient was able to doff and don shoes and socks with no difficulty while seated on the side of the mat Meal Prep Meal Prep Level: Other(no device) Meal Prep Level of Assistance: Independent Meal Preparation: Patient independently made hot chocolate in the microwave for he and therapist. No LOB noted when in the kitchen or when reaching into cupboards. Balance Sitting Balance: Modified independent Standing Balance: Modified independent Functional Mobility Functional - Mobility Device: No device Activity: To/From therapy gym;Retrieve items Assist Level: Modified independent Functional Mobility Comments: Patient ambulated to the nurses station refrigerator and obtained milk for the hot chocolate. Patient slightly unsteady in the hallway but did not require any assistance. Patient used reachers to vegetable picker one inch cubes from the floor. Patient needed an occasional verbalcue to not twist when he was dropping the cubes into the container. Plan Plan Times per week: 5-7 Plan weeks: <1 week Current Treatment Recommendations: Safety Education & Training, Patient/Caregiver Education & Training, Equipment Evaluation, Education, & procurement, Self-Care / ADL, Home Management Training, Neuromuscular Re- education, Pain Management Plan Comment: Continue OT per POC Goals Patient Goals Patient goals : To start moving again. Therapy Time Individual Concurrent Group Co-treatment Time In 1000 Time Out 1030 Minutes 30 ADL trainin minutes Brittney Summers OTR/L * Ishan Venegas PTA - 04/12/2019 9:10 AM EST Physical Therapy Rehab Treatment Note Facility/Department: [facility] Room: [place] [address] NAME: Don Elkins : 1950 (68 y.o.) CODE STATUS: Full Code Date of Service: 04/12/2019 Chart Reviewed: Yes Patient assessed for rehabilitation services?: Yes Family / Caregiver Present: No Diagnosis: Impaired Mobility and ADLs d/t severe lumbar spinal stenosis Restrictions: Restrictions/Precautions: Fall Risk Position Activity Restriction Spinal Precautions: Limit bending/lifting/twisting to within tolerable range; lumbar decompression on 04/05 SUBJECTIVE: Subjective: I am doing good; normal stuff with having surgery Response To Previous Treatment: Patient with no complaints from previous session. Pain Screening Patient Currently in Pain: Denies Pre Treatment Pain Screening Pain at present: 0 Scale Used: Numeric Score Intervention List: Patient able to continue with treatment Post Treatment Pain Screening: Pain Assessment Pain Assessment: 0-10 Pain Level: 0 OBJECTIVE: Follows Commands: Within Functional Limits Outcomes Measures: Timed Up and Go: 7.47 Bed mobility Rolling to Left: Modified independent Rolling to Right: Modified independent Supine to Sit: Modified independent Sit to Supine: Modified independent Scooting: Modified independent Transfers Sit to Stand: Modified independent Stand to sit: Modified independent Bed to Chair: Modified independent Car Transfer: Modified independent Ambulation Ambulation?: Yes More Ambulation?: No Ambulation 1 Surface: level tile;carpet Device: No Device Assistance: Modified Independent Distance: 300' x 2 Comments: Reports low back fatigue Stairs/Curb Stairs?: Yes Stairs # Steps : 12 Stairs Height: 6 Rails: Left ascending Device: No Device Assistance: Modified independent Comment: Side step up x 4 steps, reciprocal 8 steps Exercises Hamstring Sets: x 20 YTB Hip Flexion: x 20 Hip Abduction: x 20 YTB/ Ball squeezes Knee Long Arc Quad: x 20 Ankle Pumps: x 20 Comments: Seated: Abdominal bracing in armchair including with marches x 20 5 hold ASSESSMENT/COMMENTS: Body structures, Functions, Activity limitations: Decreased functional mobility ;Increased pain;Decreased safe awareness;Decreased posture Assessment: Patient reports mild LB fatigue with gait. Patient is meeting goals PLAN OF CARE/Safety: Safety Devices Type of devices: All fall risk precautions in place Therapy Time: Individual Time In 0900 Time Out 1000 Minutes 60 Minutes: 60 Transfer/Bed mobility trainin Gait trainin Therapeutic ex: 25 Ishan Venegas PTA, 04/12/19 at 9:54 AM * Lulu Lee, [facility] - 04/12/2019 8:20 AM EST Clinical Pharmacy Note Warfarin consult follow-up Recent Labs 04/12/19 0536 INR 2.1 No results for input(s): HGB, HCT, PLT in the last 72 hours. Significant drug:drug interactions: New warfarin drug-drug interactions: None Discontinued drug-drug interactions: None Current warfarin drug-drug interactions: Acetaminophen, citalopram, enoxaparin, fludrocortisone, hydrocortisone, levothyroxine, ropinirole, simvastatin Notes: Date INR Warfarin Dose 04/08/19 1.2 10 mg 04/09/19 1.1 10 mg 04/10/19 1.1 15 mg 04/11/19 1.6 10 mg 04/12/19 2.1 7.5 mg INR therapeutic at 2.1 today. Give warfarin 7.5 mg today to keep INR within goal range of 2-3. Thisis consistent with patient's usual home dosage regimen of warfarin 7.5 mg on Mondays. Recommend discontinuing the Lovenox since INR has reached therapeutic level. Daily PT/INR until stable within therapeutic range. Lulu Lee PharmD 04/12/2019 8:17 AM * Ellie Juárez, DO - 04/12/2019 7:49 AM EST Subjective: The patient complains of severe acute on chronic low back pain as well as bilateral upper and lower extremity weakness partially relieved by PT, OT, Duragesic, Percocet and exacerbated by prolonged sitting or ambulation. I am concerned about patient s serosanguineous drainage and bleeding risk given resuming Coumadin and Lovenox as well as his extremely high blood sugars and cognitive deficits. He is also very anxious and is difficult to explain things to him because he is extremely tangential. His blood sugars seem to be improving somewhat with the resumption of his previous dosing of insulin. Functionally he is improving very nicely. ROS x10: The patient also complains of severely impaired mobility and activities of daily living. Otherwise no new problems with vision, hearing, nose, mouth, throat, dermal, cardiovascular, GI, , pulmonary, musculoskeletal, psychiatric or neurological. See Rehab H&P on Rehab chart dated . Vital signs: BP (!) 160/89 Pulse 88 Temp 98 F (36.7 C) (Oral) Resp 18 Ht 5' 7 (1.702 m) Wt 250 lb 5 oz (113.5 kg) SpO2 98% BMI 39.20 kg/m I/O: PO/Intake: fair PO intake, 4 carb per meal diet Bowel/Bladder: continent, no problems noted. General: Patient is well developed, adequately nourished, non-obese and well kempt. HEENT: PERRLA, hearing intact to loud voice, external inspection of ear and nose benign. Inspection of lips, tongue and gums benign Musculoskeletal: No significant change in strength or tone. All joints stable. Inspection and palpation of digits and nails show no clubbing, cyanosis or inflammatory conditions. Neuro/Psychiatric: Affect: flat but pleasant. Alert and oriented to person, place and situation. No significant change in deep tendon reflexes or Sensation-poor judgment reasoning and insight tangential. Lungs: CTA-B. Respiration effort is normal at rest. Heart: S1 = S2, RRR. No loud murmurs. Abdomen: Soft, non-tender, no enlargement of liver or spleen. Extremities: No significant lower extremity edema or tenderness. Skin: Intact to general survey, lumbar spine incision with scant serosanguineous drainage Rehabilitation: Physical therapy: FIMS: Bed Mobility: Scooting: Modified independent Transfers: Sit to Stand: Modified independent Stand to sit: Modified independent Bed to Chair: Modified independent, Ambulation 1 Surface: level tile, carpet Device: No Device Assistance: Modified Independent Quality of Gait: normalized. Pt ambulates pushing WC to simulate shopping. Distance: 150 Comments: distance limited due to lb fatigue and spasm , Stairs # Steps : 12 Stairs Height: 6 Rails: Left ascending Assistance: Supervision Comment: lateral up x1 non reciprocal x1 and reciprocalx1 FIMS: Bed, Chair, Wheel Chair: 6 - Requires assistive device (slide rail) Walk: 6 - Modified Alvo Walks at least 150 feet with an ambulatory device, orthosis or prosthesis OR requires extra amount of time OR there is concern for safety Distance Walked: 150ft Stairs: 5- Supervision Requires supervision(e.g., standing by, cuing, or coaxing) to go up and downone flight of stairs, , Assessment: pt with spasm in the lt adductor aftersession. Pt with in lb atend of ambulation needed to sit quickly. Occupational therapy: FIMS: Eatin - Patient feeds self Groomin - Requires setup/cues to do all tasks Bathin - Did not occur Dressing-Upper: 5 - Requires setup/supervision/cues and/or requires assist with presthesis/brace only Dressing-Lower: 5 - Requires setup/supervision/cues and/or staff applies TEDS/prosthesis/brace only Toiletin - Requires device (grab bar/walker/etc.) Toilet Transfer: 0 - Did not occur Shower Transfer: 5 - Supervision, set-up, cues, , Assessment: Pt is a 68 y.o. male with above mentioned deficits impairing ability to safely compelte ADL's. Pt may benefit from OT services to addressdeficits and return to safest and highest level of functioning. Speech therapy: FIMS: Comprehension: 6 - Complex ideas 90% or device (hearing aid or glasses- if patient is primarily a visual learner) Expression: 6 - Device used to express complex ideas/needs Social Interaction: 7 - Patient has appropriate behavior/relations 100% of the time Problem Solvin - Patient able to solve simple/routine tasks Memory: 5 - Patient requires prompting with stress/unfamiliar situations Lab/X-ray studies reviewed, analyzed and discussed with patient and staff: Recent Results (from the past 24 hour(s)) POCT Glucose Collection Time: 04/11/19 12:00 PM Result Value Ref Range POC Glucose 258 (H) 60 - 115 mg/dl Performed on ACCU-CHEK POCT Glucose Collection Time: 04/11/19 3:51 PM Result Value Ref Range POC Glucose 246 (H) 60 - 115 mg/dl Performed on ACCU-CHEK POCT Glucose Collection Time: 04/11/19 8:58 PM Result Value Ref Range POC Glucose 234 (H) 60 - 115 mg/dl Performed on ACCU-CHEK PROTIME-INR Collection Time: 04/12/19 5:36 AM Result Value Ref Range Protime 24.3 (H) 12.3 - 14.9 sec INR 2.1 POCT Glucose Collection Time: 04/12/19 6:37 AM Result Value Ref Range POC Glucose 228 (H) 60 - 115 mg/dl Performed on ACCU-CHEK Mri Lumbar Spine 04/08/2019 1. Postcontrast enhancement involving the laminectomy site and the adjacent paraspinal muscles and subcutaneous tissues. No drainable fluid collection or abscess. Findings could reflect postoperativechange or early infection, correlation with inflammatory/infectious markers is recommended. 2. Multilevel degenerative disc disease and facet osteoarthropathy T12-S1, with severe thecal sac stenosis at L3-L4 just superior to the laminectomy site, crowding and compression of cauda equina nerve rootsand abutment/impingement exiting bilateral L3 spinal nerve roots. 3. Superimposed central and bilateral paracentral disc bulge with some extension into the lateral recess regions at L5-S1. Mild thecal sac stenosis. Abutment of descending bilateral S1 spinal nerve roots. 4. Abutment/impingement exiting bilateral L4 spinal nerve roots at L4-L5. No alejandro spinal canal stenosis at this level. 5. Heterogeneity of bone marrow signal intensity This may simply represent red marrow conversion, however, the differential diagnosis also includes more concerning processes such as, but not limited to, hemosiderosis, mastocytosis, multiple myeloma, myelofibrosis, sarcoidosis, hematopoietic hyperplasia, leukemia, lymphoma or metastatic disease. Fl 04/06/2019 Patient : 1950 Age: 68 years Gender: Male Order Date: 04/05/2019 11:51 AM. Exam: FL LESS THAN 1 HOUR Number of Views: 2 Indication: Needle placement in operating room Comparison: None Findings: Surgical enhancements project overlying the L5 vertebral body and the L3-L4 interver tebral disc space. One image is nondiagnostic but with a surgical instruments superficial to the posterior elements at L4-L5. Impression: 1. Fluoroscopic time 70.8 seconds. 2. Surgical instrumentation placement as described above. Xr Chest 04/08/2019 Patient : 1950 Age: 68 years Gender: Male Order Date: 04/07/2019 6:30 PM. Exam: XR CHEST PORTABLE Number of Views: 1 Indication: Fever Comparison: None. Findings: Cardiomediastinal silhouette is within normal limits. Lungs are clear without evidence of infiltrate/pneumonia, pneumothorax or pleural effusion Impression: No radiographic evidence of acute cardiopulmonary disease Previous extensive, complex labs, notes and diagnostics reviewed and analyzed. ALLERGIES: Allergies as of 04/09/2019 (No Known Allergies) (please also verify by checking MAR) Today I evaluated this patient for periodic reassessment of medical and functional status. The patient was discussed in detail at the treatment team meeting focusing on current medical issues, progress in therapies, social issues, psychological issues, barriers to progress and strategies to address these barriers, and discharge planning. See the hand written addendum to rehab progress note. The patient continues to be high risk for future disability and their medical and rehabilitation prognosis continue to be good and therefore, we will continue the patient's rehabilitation course as planned. The patient's tentative discharge date was set. Patient and family education was discussed. The patient was made aware of the team discussion regarding their progress. Complex Physical Medicine & Rehab Issues Assess & Plan: 1. Severe abnormality of gait and mobility and impaired self-care and ADL's secondary to progressive severe spinal canal stenosis. Functional and medical status reassessed regarding patient s abilityto participate in therapies and patient found to be able to participate in acute intensive comprehensive inpatient rehabilitation program including PT/OT to improve balance, ambulation, ADL s, and toimprove the P/AROM. Therapeutic modifications regarding activities in therapies, place, amount of time per day and intensity of therapy made daily. In bed therapies or bedside therapies prn. 2. Bowel opiate related constipation and Bladder dysfunction: frequent toileting, ambulate to bathroom with assistance, check post void residuals. Check for C.difficile x1 if >2 loose stools in 24hours, continue bowel & bladder program. Monitor bowel and bladder function. Lactinex 2 PO every AC. MOM prn, Brown Bomb prn, Glycerin suppository prn, enema prn. 3. Severe postop low back pain as well as generalized OA pain: reassess pain every shift and prior to and after each therapy session, give prn Tylenol and Percocet and scheduled Duragesic, modalitiesprn in therapy, Lidoderm, K-pad prn. 4. Skin healing lumbar spine incision and breakdown risk: continue pressure relief program. Daily skin exams and reports from nursing. Add co-Q10 5. Severe fatigue due to nutritional and hydration deficiency: Add vitamin B12 vitamin D and CoQ10 continue to monitor I&O s, calorie counts prn, dietary consult prn. 6. Acute episodic insomnia with situational adjustment disorder: prn Ambien, monitor for day time sedation. 7. Falls risk elevated: patient to use call light to get nursing assistance to get up, bed and chair alarm. 8. Elevated DVT risk: progressive activities in PT, continue prophylaxis DARLYN hose, elevation and patient is on prophylactic Lovenox transition to therapeutic Coumadin this is been okayed by his neurosurgeon Dr. Mejia. 9. Complex discharge planning: SP Weekly team meeting every Friday to assess progress towards goals, discuss and address social, psychological and medical comorbidities and to address difficulties they may be having progressing in therapy. Patient and family education is in progress. The patient isto follow-up with their family physician after discharge. Complex Active General Medical Issues that complicate care Assess & Plan: 1. Spinal stenosis of lumbar region with radiculopathy, Lumbar spondylosis with recent decompression of L3-L4 under the care of Dr. Reid Mejia at [facility] 04/05/2019. Patient is to transition slowly back onto his blood thinners he has a history of PE in 2018 and was on Coumadin 2. Tremors of nervous system affecting cognitive deficits and some rigidity- monitor for dementia and Parkinson's disease, monitor for nocturnal hypoxemia, have speech and language pathology assess his memory monitor for sleep apnea and nocturnal hypoxemia. 3. Thyroid disease-titrate Synthroid 4. HTN (hypertension), Hyperlipidemia, Sinus tachycardia, possible history of hypercoagulable stateversus idiopathic PE 2018-vital signs to shift, dose and titrate cardiac medications to include Zestril, Lopressor, Zocor, Coumadin, using Lovenox at low-dose until he becomes therapeutic on his Coumadin because of his postop status and blood thinners. Consult hospitalist for back-up medical recheck BMP CBC 5. Sepsis, Postoperative fever-closely monitor for fever, check incision dose antibiotics 6. Type 2 diabetes mellitus with hyperglycemia, with long-term current use of insulin-resume diabetic ed dietary add transition back to his home dose of insulin and sliding scale decrease carbohydrates in the diet to 4 carbs per meal. 7. Major depressive disorder, single episode, with severe anxiety and cognitive deficits-emotional support to be given daily add rec therapy rehabilitation psychology vitamin B12 and support group 8. Iron deficiency anemia-titrate iron and B12 9. Bronchitis, obstructive sleep apnea syndrome-patient is to wear CPAP from home if he is noncompliant we will elevate the head of the bed and add cannula O2 titrate Mucinex add Acapella and incentive spirometry Ellie Juárez D.O., PM&R Attending [phone] [facility] [employer] [facility] [place] * Kirsten Dailey RN - 04/12/2019 5:59 AM EST Pt denied any pain. LBM 04/11/19. OT at was 234, 2 units of Humalog given along with 20 units ofLantus. Pt slept well with CPAP. Will continue to monitor. * Cristiano Agosto, [facility] - 04/11/2019 12:36 PM EST Clinical Pharmacy Note Warfarin consult follow-up Recent Labs 04/11/19 0543 INR 1.6 Recent Labs 04/09/19 0505 HGB 10.6* HCT 31.5* PLT 169 Significant drug:drug interactions: Acetaminophen, citalopram, enoxaparin, fludrocortisone, hydrocortisone, levothyroxine, ropinirole, simvastatin Notes: Date INR Warfarin Dose 04/08/19 1.2 10 mg 04/09/19 1.1 10 mg 04/10/19 1.1 15 mg 04/11/19 1.6 10 mg Patients INR increased today to 1.6, but remains subtherapeutic (goal 2-3). Patients normal home dose on Sundays is 5 mg, so will give another 10 mg booster dose of warfarin x1 to get patient to therapeutic range. Daily PT/INR until stable within therapeutic range. Cristiano Agosto PharmD 04/11/2019 12:35 PM Electronically signed by Cristiano Agosto [facility] at 04/11/2019 12:36 PM EST * Alyx Collins PTA - 04/11/2019 12:11 PM EST Physical Therapy Rehab Treatment Note Facility/Department: [facility] Room: R2/R238-01 NAME: Don Elkins : 1950 (68 y.o.) CODE STATUS: Full Code Date of Service: 04/11/2019 Restrictions: Restrictions/Precautions: Fall Risk Position Activity Restriction Spinal Precautions: Limit bending/lifting/twisting to within tolerable range; lumbar decompression on 04/05 SUBJECTIVE: Pre Treatment Pain Screening Pain at present: 0 Intervention List: Patient able to continue with treatment Comments / Details: Pt denies pain however c/o stiffness of low back at times. Ice provided for comfort. Post Treatment Pain Screening: Pain Assessment Pain Assessment: 0-10 Pain Level: 0 OBJECTIVE: Bed mobility Rolling to Left: Modified independent Rolling to Right: Modified independent Supine to Sit: Modified independent Sit to Supine: Modified independent Scooting: Modified independent Transfers Sit to Stand: Modified independent Stand to sit: Supervision;Modified independent Bed to Chair: Modified independent Ambulation 1 Surface: level tile;carpet Device: No Device Assistance: Modified Independent Distance: 300x2 Comments: pt occ grabs onto rail in hallway to steady self. 2nd set of ambulation pt wanted to demonstrate ability to push w/c Stairs # Steps : 12 Stairs Height: 6 Rails: Left ascending Assistance: Supervision Comment: lateral up x1 non reciprocal x1 and reciprocalx1 Exercises Straight Leg Raise: 2x10 Comments: Seated: Abdominal bracing in armchair including with marches, LAQ and clamshells X 10 each. Other exercises Other exercises 1: supine abdominal brace Other exercises 2: supine march with abdominal brace Other exercises 3: standing toe taps ASSESSMENT/COMMENTS: Assessment: pt reports that he feel lightheaded after stairs and during ambulation spo2 98% hr 69 BP 132/68. PLAN OF CARE/Safety: Safety Devices Type of devices: All fall risk precautions in place Therapy Time: Individual Time In 1100 Time Out 1200 Minutes 60 Minutes:60 Transfer/Bed mobility training: Gait trainin Neuro re education:10 Therapeutic ex:20 Alyx Collins PTA, 04/11/19 at 12:13 PM * Sharmin Ronquillo, OTR/L - 04/11/2019 10:14 AM EST Occupational Therapy Facility/Department: [facility] Daily Treatment Note NAME: Don Elkins : 1950 Date of Service: 04/11/2019 Discharge Recommendations: Continue to assess pending progress Assessment REQUIRES OT FOLLOW UP: Yes Activity Tolerance Activity Tolerance: Patient Tolerated treatment well Safety Devices Safety Devices in place: Yes Type of devices: All fall risk precautions in place Patient Diagnosis(es): There were no encounter diagnoses. has a past medical history of Acute non-ST elevation myocardial infarction (NSTEMI) ([facility]), Acute post-hemorrhagic anemia, Acute respiratory insufficiency, Bronchiectasis ([facility]), CAD (coronary artery disease), Calculus of urinary tract, Cancer ([facility]), Chronic back pain, CKD (chronic kidney disease), COPD (chronic obstructive pulmonary disease) ([facility]), Diabetes mellitus ([facility]), Diverticulosis of large intestine, DVT (deep venous thrombosis) ([facility]), GERD (gastroesophageal reflux disease), Hx of blood clots, Hyperlipidemia, Hypertension, Lumbar stenosis with neurogenic claudication, Primary adrenocortical insufficiency ([facility]), Pulmonary embolism ([facility]), Pulmonary embolism without acute cor pulmonale ([facility]), Restless leg syndrome, RLS (restless legs syndrome), Sleep apnea, Thyroid disease, and Tubularadenoma of colon. has a past surgical history that includes Carpal tunnel release (Bilateral, ); Hemorrhoid surgery (); Cardiac surgery (03/2018); Prostatectomy (2011); Colonoscopy; Endoscopy, colon, diagnostic; Cholecystectomy (2013); eye surgery; Appendectomy; cyst removal (Bilateral, ); Nose surgery (); Plantar fascia surgery (Left, ); Finger trigger release (Bilateral, ); IVC filter insertion (02/2018); IVC filter removal (07/2018); and Lumbar spine surgery (N/A, 04/05/2019). Restrictions Restrictions/Precautions Restrictions/Precautions: (P) Fall Risk Position Activity Restriction Spinal Precautions: (P) Limit bending/lifting/twisting to within tolerable range; lumbar decompression on 04/05 Subjective General Chart Reviewed: Yes Patient assessed for rehabilitation services?: Yes Family / Caregiver Present: No Referring Practitioner: Dr. Ellie Juárez Diagnosis: Impaired mobility and ADL's d/t severe lumbar spinal stenosis Vital Signs Patient Currently in Pain: No Orientation:A&O x4 Objective Instrumental ADL's Instrumental ADLs: Yes Meal Prep Meal Prep Level: Other Meal Prep Level of Assistance: Supervision Meal Preparation: Pt instructed and prepared microwave Mac N Cheese. Pt required min verb cues for safety to close cupboards and drawers. Pt min verb cues to pull chair out and sit @ table. Pt set upto wash dishes. Tub Transfers Tub - Transfer Type: To and From Tub - Transfer To: Shower seat with back Tub - Technique: Ambulating Tub Transfers: Modified independence Tub Transfers Comments: grab bars and shower chair Plan Plan Times per week: 5-7 Plan weeks: <1 week Current Treatment Recommendations: Safety Education & Training, Patient/Caregiver Education & Training, Equipment Evaluation, Education, & procurement, Self-Care / ADL, Home Management Training, Neuromuscular Re- education, Pain Management Plan Comment: Continue OT per POC Goals Patient Goals Patient goals : To start moving again. Therapy Time Individual Concurrent Group Co-treatment Time In 1030 Time Out 1100 Minutes 30 trainin minutes Sharmin Maria Luisa Drotos, OTR/L * RonnieEllie montemayor, - 04/11/2019 10:08 AM EST Subjective: The patient complains of severe acute on chronic low back pain as well as bilateral upper and lower extremity weakness partially relieved by PT, OT, Duragesic, Percocet and exacerbated by prolonged sitting or ambulation. I am concerned about patient s serosanguineous drainage and bleeding risk given resuming Coumadin and Lovenox as well as his extremely high blood sugars and cognitive deficits. He is also very anxious and is difficult to explain things to him because he is extremely tangential. ROS x10: The patient also complains of severely impaired mobility and activities of daily living. Otherwise no new problems with vision, hearing, nose, mouth, throat, dermal, cardiovascular, GI, , pulmonary, musculoskeletal, psychiatric or neurological. See Rehab H&P on Rehab chart dated . Vital signs: BP (!) 153/77 Pulse 76 Temp 98 F (36.7 C) (Oral) Resp 17 Ht 5' 7 (1.702 m) Wt 250 lb 5 oz (113.5 kg) SpO2 97% BMI 39.20 kg/m I/O: PO/Intake: fair PO intake, no problems observed or reported. Bowel/Bladder: continent, no problems noted. General: Patient is well developed, adequately nourished, non-obese and well kempt. HEENT: PERRLA, hearing intact to loud voice, external inspection of ear and nose benign. Inspection of lips, tongue and gums benign Musculoskeletal: No significant change in strength or tone. All joints stable. Inspection and palpation of digits and nails show no clubbing, cyanosis or inflammatory conditions. Neuro/Psychiatric: Affect: flat but pleasant. Alert and oriented to person, place and situation. No significant change in deep tendon reflexes or Sensation-poor judgment reasoning and insight tangential. Lungs: CTA-B. Respiration effort is normal at rest. Heart: S1 = S2, RRR. No loud murmurs. Abdomen: Soft, non-tender, no enlargement of liver or spleen. Extremities: No significant lower extremity edema or tenderness. Skin: Intact to general survey, lumbar spine incision with scant serosanguineous drainage Rehabilitation: Physical therapy: FIMS: Bed Mobility: Transfers: Sit to Stand: Modified independent Stand to sit: Supervision, Modified independent Bed to Chair: Modified independent, Ambulation 1 Surface: level tile, carpet Device: No Device Assistance: Modified Independent Quality of Gait: normalized. Pt ambulates pushing WC to simulate shopping. Distance: 500ft X 2, Stairs # Steps : 16 Stairs Height: 6 Rails: Left ascending Assistance: Supervision Comment: Pt cued to complete steps with step to pattern d/t increased truncal instability with reciprocal pattern. Pt follows instruction well. Pt also instructed in double deicer tester lateral negotiation technique to utilize when back is painful. FIMS: Bed, Chair, Wheel Chair: 5 - Requires setup/supervision/cues Walk: 5 - Supervision Requires standby supervision or cuing to walk at least 150 feet Distance Walked: 150 Stairs: 5- Supervision Requires supervision(e.g., standing by, cuing, or coaxing) to go up and downone flight of stairs, , Assessment: Focus on higher level gait and abd bracing exes Occupational therapy: FIMS: Eatin - Patient feeds self Groomin - Requires setup/cues to do all tasks Bathin - Able to bathe all 10 areas with setup/sup/cues Dressing-Upper: 5 - Requires setup/supervision/cues and/or requires assist with presthesis/brace only Dressing-Lower: 5 - Requires setup/supervision/cues and/or staff applies TEDS/prosthesis/brace only Toiletin - Did not occur Toilet Transfer: 0 - Did not occur Shower Transfer: 5 - Supervision, set-up, cues, , Assessment: Pt is a 68 y.o. male with above mentioned deficits impairing ability to safely compelte ADL's. Pt may benefit from OT services to addressdeficits and return to safest and highest level of functioning. Speech therapy: FIMS: Comprehension: 6 - Complex ideas 90% or device (hearing aid or glasses- if patient is primarily a visual learner) Expression: 6 - Device used to express complex ideas/needs Social Interaction: 7 - Patient has appropriate behavior/relations 100% of the time Problem Solvin - Patient able to solve simple/routine tasks Memory: 5 - Patient requires prompting with stress/unfamiliar situations Lab/X-ray studies reviewed, analyzed and discussed with patient and staff: Recent Results (from the past 24 hour(s)) POCT Glucose Collection Time: 04/10/19 11:04 AM Result Value Ref Range POC Glucose 313 (H) 60 - 115 mg/dl Performed on ACCU-CHEK POCT Glucose Collection Time: 04/10/19 4:08 PM Result Value Ref Range POC Glucose 337 (H) 60 - 115 mg/dl Performed on ACCU-CHEK POCT Glucose Collection Time: 04/10/19 8:12 PM Result Value Ref Range POC Glucose 290 (H) 60 - 115 mg/dl Performed on ACCU-CHEK PROTIME-INR Collection Time: 04/11/19 5:43 AM Result Value Ref Range Protime 19.6 (H) 12.3 - 14.9 sec INR 1.6 POCT Glucose Collection Time: 04/11/19 6:35 AM Result Value Ref Range POC Glucose 249 (H) 60 - 115 mg/dl Performed on ACCU-CHEK Mri Lumbar Spine 04/08/2019 1. Postcontrast enhancement involving the laminectomy site and the adjacent paraspinal muscles and subcutaneous tissues. No drainable fluid collection or abscess. Findings could reflect postoperativechange or early infection, correlation with inflammatory/infectious markers is recommended. 2. Multilevel degenerative disc disease and facet osteoarthropathy T12-S1, with severe thecal sac stenosis at L3-L4 just superior to the laminectomy site, crowding and compression of cauda equina nerve rootsand abutment/impingement exiting bilateral L3 spinal nerve roots. 3. Superimposed central and bilateral paracentral disc bulge with some extension into the lateral recess regions at L5-S1. Mild thecal sac stenosis. Abutment of descending bilateral S1 spinal nerve roots. 4. Abutment/impingement exiting bilateral L4 spinal nerve roots at L4-L5. No alejandro spinal canal stenosis at this level. 5. Heterogeneity of bone marrow signal intensity This may simply represent red marrow conversion, however, the differential diagnosis also includes more concerning processes such as, but not limited to, hemosiderosis, mastocytosis, multiple myeloma, myelofibrosis, sarcoidosis, hematopoietic hyperplasia, leukemia, lymphoma or metastatic disease. Fl 04/06/2019 Patient : 1950 Age: 68 years Gender: Male Order Date: 04/05/2019 11:51 AM. Exam: FL LESS THAN 1 HOUR Number of Views: 2 Indication: Needle placement in operating room Comparison: None Findings: Surgical enhancements project overlying the L5 vertebral body and the L3-L4 interver tebral disc space. One image is nondiagnostic but with a surgical instruments superficial to the posterior elements at L4-L5. Impression: 1. Fluoroscopic time 70.8 seconds. 2. Surgical instrumentation placement as described above. Xr Chest 04/08/2019 Patient : 1950 Age: 68 years Gender: Male Order Date: 04/07/2019 6:30 PM. Exam: XR CHEST PORTABLE Number of Views: 1 Indication: Fever Comparison: None. Findings: Cardiomediastinal silhouette is within normal limits. Lungs are clear without evidence of infiltrate/pneumonia, pneumothorax or pleural effusion Impression: No radiographic evidence of acute cardiopulmonary disease Previous extensive, complex labs, notes and diagnostics reviewed and analyzed. ALLERGIES: Allergies as of 04/09/2019 (No Known Allergies) (please also verify by checking MAR) Complex Physical Medicine & Rehab Issues Assess & Plan: 1. Severe abnormality of gait and mobility and impaired self-care and ADL's secondary to progressive severe spinal canal stenosis. Functional and medical status reassessed regarding patient s abilityto participate in therapies and patient found to be able to participate in acute intensive comprehensive inpatient rehabilitation program including PT/OT to improve balance, ambulation, ADL s, and toimprove the P/AROM. Therapeutic modifications regarding activities in therapies, place, amount of time per day and intensity of therapy made daily. In bed therapies or bedside therapies prn. 2. Bowel opiate related constipation and Bladder dysfunction: frequent toileting, ambulate to bathroom with assistance, check post void residuals. Check for C.difficile x1 if >2 loose stools in 24hours, continue bowel & bladder program. Monitor bowel and bladder function. Lactinex 2 PO every AC. MOM prn, Brown Bomb prn, Glycerin suppository prn, enema prn. 3. Severe postop low back pain as well as generalized OA pain: reassess pain every shift and prior to and after each therapy session, give prn Tylenol and Percocet and scheduled Duragesic, modalitiesprn in therapy, Lidoderm, K-pad prn. 4. Skin healing lumbar spine incision and breakdown risk: continue pressure relief program. Daily skin exams and reports from nursing. Add co-Q10 5. Severe fatigue due to nutritional and hydration deficiency: Add vitamin B12 vitamin D and CoQ10 continue to monitor I&O s, calorie counts prn, dietary consult prn. 6. Acute episodic insomnia with situational adjustment disorder: prn Ambien, monitor for day time sedation. 7. Falls risk elevated: patient to use call light to get nursing assistance to get up, bed and chair alarm. 8. Elevated DVT risk: progressive activities in PT, continue prophylaxis DARLYN hose, elevation and patient is on prophylactic Lovenox transition to therapeutic Coumadin this is been okayed by his neurosurgeon Dr. Mejia. 9. Complex discharge planning: Weekly team meeting every Friday to assess progress towards goals, discuss and address social, psychological and medical comorbidities and to address difficulties they may be having progressing in therapy. Patient and family education is in progress. The patient is tofollow-up with their family physician after discharge. Complex Active General Medical Issues that complicate care Assess & Plan: 1. Spinal stenosis of lumbar region with radiculopathy, Lumbar spondylosis with recent decompression of L3-L4 under the care of Dr. Reid Mejia at [facility] 04/05/2019. Patient is to transition slowly back onto his blood thinners he has a history of PE in 2018 and was on Coumadin 2. Tremors of nervous system affecting cognitive deficits and some rigidity- monitor for dementia and Parkinson's disease, monitor for nocturnal hypoxemia, have speech and language pathology assess his memory monitor for sleep apnea and nocturnal hypoxemia. 3. Thyroid disease-titrate Synthroid 4. HTN (hypertension), Hyperlipidemia, Sinus tachycardia, possible history of hypercoagulable stateversus idiopathic PE 2018-vital signs to shift, dose and titrate cardiac medications to include Zestril, Lopressor, Zocor, Coumadin, using Lovenox at low-dose until he becomes therapeutic on his Coumadin because of his postop status and blood thinners. Consult hospitalist for back-up medical recheck BMP CBC 5. Sepsis, Postoperative fever-closely monitor for fever, check incision dose antibiotics 6. Type 2 diabetes mellitus with hyperglycemia, with long-term current use of insulin-resume diabetic ed dietary add transition back to his home dose of insulin and sliding scale decrease carbohydrates in the diet to 4 carbs per meal. 7. Major depressive disorder, single episode, with severe anxiety and cognitive deficits-emotional support to be given daily add rec therapy rehabilitation psychology vitamin B12 and support group 8. Iron deficiency anemia-titrate iron and B12 9. Bronchitis, obstructive sleep apnea syndrome-patient is to wear CPAP from home if he is noncompliant we will elevate the head of the bed and add cannula O2 titrate Mucinex add Acapella and incentive spirometry Ellie Juárez D.O., PM&R Attending [phone] [facility] [employer] [facility] [place] * Jaspreet Pleitez, OT - 04/11/2019 9:07 AM EST Occupational Therapy Facility/Department: [facility] Daily Treatment Note NAME: Don Elkins : 1950 Date of Service: 04/11/2019 Discharge Recommendations: Continue to assess pending progress Assessment Activity Tolerance Activity Tolerance: Patient Tolerated treatment well Safety Devices Safety Devices in place: Yes Type of devices: All fall risk precautions in place Patient Diagnosis(es): There were no encounter diagnoses. has a past medical history of Acute non-ST elevation myocardial infarction (NSTEMI) ([facility]), Acute post-hemorrhagic anemia, Acute respiratory insufficiency, Bronchiectasis ([facility]), CAD (coronary artery disease), Calculus of urinary tract, Cancer ([facility]), Chronic back pain, CKD (chronic kidney disease), COPD (chronic obstructive pulmonary disease) ([facility]), Diabetes mellitus (HCC), Diverticulosis of large intestine, DVT (deep venous thrombosis) ([facility]), GERD (gastroesophageal reflux disease), Hx of blood clots, Hyperlipidemia, Hypertension, Lumbar stenosis with neurogenic claudication, Primary adrenocortical insufficiency (HCC), Pulmonary embolism (HCC), Pulmonary embolism without acute cor pulmonale ([facility]), Restless leg syndrome, RLS (restless legs syndrome), Sleep apnea, Thyroid disease, and Tubularadenoma of colon. has a past surgical history that includes Carpal tunnel release (Bilateral, ); Hemorrhoid surgery (); Cardiac surgery (03/2018); Prostatectomy (2011); Colonoscopy; Endoscopy, colon, diagnostic; Cholecystectomy (2013); eye surgery; Appendectomy; cyst removal (Bilateral, ); Nose surgery (); Plantar fascia surgery (Left, ); Finger trigger release (Bilateral, ); IVC filter insertion (02/2018); IVC filter removal (07/2018); and Lumbar spine surgery (N/A, 04/05/2019). Restrictions Restrictions/Precautions Restrictions/Precautions: Fall Risk Position Activity Restriction Spinal Precautions: Limit bending/lifting/twisting to within tolerable range; lumbar decompression on 04/05 Subjective General Chart Reviewed: Yes Patient assessed for rehabilitation services?: Yes Family / Caregiver Present: No Referring Practitioner: Dr. Ellie Juárez Diagnosis: Impaired mobility and ADL's d/t severe lumbar spinal stenosis Pain Assessment Pain Assessment: 0-10 Pain Level: 0 Pre Treatment Pain Screening Pain at present: 0 Intervention List: Patient able to continue with treatment Vital Signs Patient Currently in Pain: Denies Orientation Objective Pt engaged in self-care tasks to increase independence and safety with ADLs. Pt tolerated session well; required VCs to maintain back precautions. ADL Feeding: Independent Grooming: Supervision UE Bathing: Supervision(assist to cover surgical site) LE Bathing: Supervision(Pt stood for shower; VCs to avoid bending to retrieve washcloth off of floor) UE Dressing: Supervision(pt able to retrieve clothes, supervision ) LE Dressing: Supervision(VCs to sit for safety when donning LE clothing) Toileting: Unable to assess(comment)(Pt declined) Balance Sitting Balance: Modified independent Standing Balance: Supervision Functional Mobility Functional - Mobility Device: No device Activity: To/from bathroom;Transport items(Carried clothes to/from bathroom during ADL) Assist Level: Supervision Toilet Transfers Toilet Transfer: Unable to assess Shower Transfers Shower - Transfer From: (No device) Shower - Transfer Type: To and From Shower - Transfer To: Shower seat with back Shower - Technique: Ambulating Shower Transfers: Supervision Shower Transfers Comments: use of grab bars Transfers Sit to stand: Supervision Stand to sit: Supervision Pt engaged in functional standing activity to increase balance and endurance for IADLs. Pt stood for 5 minutes x2 trials to complete Bilateral fine motor task at tabletop. Pt placed golf tees in pegboard and balanced marbles on top with good balance throughout. Needed 2 VCs for precautions when attempting to retrieved dropped objects. Plan Plan Times per week: 5-7 Plan weeks: <1 week Current Treatment Recommendations: Safety Education & Training, Patient/Caregiver Education & Training, Equipment Evaluation, Education, & procurement, Self-Care / ADL, Home Management Training, Neuromuscular Re- education, Pain Management Plan Comment: Continue OT per POC Goals Patient Goals Patient goals : To start moving again. Therapy Time Individual Concurrent Group Co-treatment Time In 0800 Time Out 0900 Minutes 60 ADL trainin minutes Therapeutic activities: 15 minutes Jaspreet Pleitez OT * Kirsten Dailey RN - 04/10/2019 10:20 PM EST Spoke with Pharmacy who stated that patient has to supply own medication for Victoza. Pt does have medication with him will send to pharmacy to be verified. Explained this to patient who understood. * Sera Escalera, PT - 04/10/2019 2:46 PM EST Physical Therapy Rehab Treatment Note Facility/Department: [id number] NAME: Don El[facility] : 1950 (68 y.o.) CODE STATUS: Full Code Date of Service: 04/10/2019 Chart Reviewed: Yes Family / Caregiver Present: No Diagnosis: Impaired Mobility and ADLs d/t severe lumbar spinal stenosis General Comment Comments: Pt presenting to therapy gym. Restrictions: Restrictions/Precautions: Fall Risk Position Activity Restriction Spinal Precautions: Limit bending/lifting/twisting to within tolerable range; lumbar decompression on 04/05 SUBJECTIVE: Subjective: Lunch made me sleepy. Pre Treatment Pain Screening Comments / Details: Pt denies pain however c/o stiffness of low back at times. Ice provided for comfort. Pre Treatment Pain Screening Pain at present: 2 Scale Used: Numeric Score Intervention List: Patient able to continue with treatment;Patient declined any intervention Comments / Details: low back pain Post Treatment Pain Screening: Pain Assessment Pain Assessment: (10/26. RN notified) OBJECTIVE: Bed mobility Rolling to Left: Modified independent Rolling to Right: Modified independent Supine to Sit: Modified independent;Supervision Sit to Supine: Modified independent;Supervision Comment: Increased time to complete. Pt demonstrates logroll. Struggles. Cues for limiting valsalva Transfers Sit to Stand: Modified independent Stand to sit: Supervision;Modified independent Bed to Chair: Modified independent Car Transfer: Modified independent;Supervision Comment: Verbal cues for ergonomic positioning. Ambulation Ambulation?: Yes Ambulation 1 Surface: level tile;carpet Device: No Device Assistance: Modified Independent Quality of Gait: normalized. Pt ambulates pushing WC to simulate shopping. Distance: 500ft X 2 Stairs/Curb Stairs?: Yes Stairs # Steps : 16 Stairs Height: 6 Rails: Left ascending Assistance: Supervision Comment: Pt cued to complete steps with step to pattern d/t increased truncal instability with reciprocal pattern. Pt follows instruction well. Pt also instructed in double deicer tester lateral negotiation technique to utilize when back is painful. Activity Tolerance Activity Tolerance: Patient Tolerated treatment well Exercises Comments: Seated: Abdominal bracing in armchair including with marches, LAQ and clamshells X 10 each. Outcomes Measures: Timed Up and Go: 11.17 ASSESSMENT: Body structures, Functions, Activity limitations: Decreased functional mobility ;Increased pain;Decreased safe awareness;Decreased posture Assessment: Focus on higher level gait and abd bracing exes Prognosis: Good Patient Education: postural education; ergonomics; healing process; chronic pain Barriers to Learning: none at this time REQUIRES PT FOLLOW UP: Yes PLAN OF CARE: Plan Comment: cont per POC Safety Devices Type of devices: All fall risk precautions in place Short term goals Short term goal 1: Pt to complete HEP with indep Short term goal 2: Pt to complete TUG in 13.5m/s residential goals long term goal 1: Pt to complete all bed mobility with indep residential goal 2: Pt to complete transfers with indep long term goal 3: pt to ambulate >150 ft with no AD independently residential goal 4: pt to navigate 12 steps with 1 HR mod indep Therapy Time: Individual Time In 1300 Time Out 1330 Minutes 30 Timed Code Treatment Minutes: 30 Minutes(gait 20min; therex 10min) Sera Escalera, PT, 04/10/19 at 2:46 PM * oRx Vergara YUDI - 04/10/2019 2:23 PM EST Occupational Therapy Facility/Department: [facility] Daily Treatment Note NAME: Don Elkins : 1950 Date of Service: 04/10/2019 Discharge Recommendations: Continue to assess pending progress Assessment Performance deficits / Impairments: Decreased functional mobility ;Decreased ADL status;Decreased safe awareness;Decreased high-level IADLs Assessment: Pt is a 68 y.o. male with above mentioned deficits impairing ability to safely compelteADL's. Pt may benefit from OT services to address deficits and return to safest and highest level of functioning. Decision Making: Medium Complexity History: Multi comorb Exam: 4 perf imp Assistance / Modification: Min A OT Education: OT Role;Plan of Care Patient Education: Educated pt. on role of acute care OT Barriers to Learning: None REQUIRES OT FOLLOW UP: Yes Activity Tolerance Activity Tolerance: Patient Tolerated treatment well Safety Devices Safety Devices in place: Yes Type of devices: All fall risk precautions in place Patient Diagnosis(es): There were no encounter diagnoses. has a past medical history of Acute non-ST elevation myocardial infarction (NSTEMI) ([facility]), Acute post-hemorrhagic anemia, Acute respiratory insufficiency, Bronchiectasis ([facility]), CAD (coronary artery disease), Calculus of urinary tract, Cancer ([facility]), Chronic back pain, CKD (chronic kidney disease), COPD (chronic obstructive pulmonary disease) ([facility]), Diabetes mellitus ([facility]), Diverticulosis of large intestine, DVT (deep venous thrombosis) ([facility]), GERD (gastroesophageal reflux disease), Hx of blood clots, Hyperlipidemia, Hypertension, Lumbar stenosis with neurogenic claudication, Primary adrenocortical insufficiency ([facility]), Pulmonary embolism ([facility]), Pulmonary embolism without acute cor pulmonale ([facility]), Restless leg syndrome, RLS (restless legs syndrome), Sleep apnea, Thyroid disease, and Tubularadenoma of colon. has a past surgical history that includes Carpal tunnel release (Bilateral, ); Hemorrhoid surgery (); Cardiac surgery (03/2018); Prostatectomy (2011); Colonoscopy; Endoscopy, colon, diagnostic; Cholecystectomy (2013); eye surgery; Appendectomy; cyst removal (Bilateral, ); Nose surgery (); Plantar fascia surgery (Left, ); Finger trigger release (Bilateral, ); IVC filter insertion (02/2018); IVC filter removal (07/2018); and Lumbar spine surgery (N/A, 04/05/2019). Restrictions Restrictions/Precautions Restrictions/Precautions: Fall Risk Position Activity Restriction Spinal Precautions: Limit bending/lifting/twisting to within tolerable range; lumbar decompression on 04/05 Subjective General Chart Reviewed: Yes Patient assessed for rehabilitation services?: Yes Family / Caregiver Present: No Referring Practitioner: Dr. Ellie Juárez Diagnosis: Impaired mobility and ADL's d/t severe lumbar spinal stenosis Pain Assessment Pain Assessment: 0-10 Pain Level: 6 Pain Type: Surgical pain Pain Location: Back Pain Orientation: Lower Pain Descriptors: Aching Pain Frequency: Continuous Pre Treatment Pain Screening Pain at present: 6 Scale Used: Numeric Score Intervention List: Patient able to continue with treatment;Patient declined any intervention Vital Signs Patient Currently in Pain: Yes Orientation Objective Pt. engaged in various standing balance and endurance tasks to promote independence with ADLs and IADLs. Pt. folded towels, washcloths, and pillow cases. Pt. was able to fold the items with no difficulty and stack them on the table with no difficulty. Pt. then engaged in B UE strengthening task while standing. Pt. placed resistive clothespins on rods alternating hands. Pt. was able to complete all the different resistances and then remove them. Pt. had no LOB while completing tasks and had F/F+ endurance for session. Plan Plan Times per week: 5-7 Plan weeks: <1 week Current Treatment Recommendations: Safety Education & Training, Patient/Caregiver Education & Training, Equipment Evaluation, Education, & procurement, Self-Care / ADL, Home Management Training, Neuromuscular Re- education, Pain Management Goals Patient Goals Patient goals : To start moving again. Therapy Time Individual Concurrent Group Co-treatment Time In 1330 Time Out 1400 Minutes 30 Therapeutic activities: 30 minutes YUDI Hughes * Wendy Devlin SLP - 04/10/2019 12:47 PM EST [facility] Initial Speech/Language/Cognitive Assessment NAME:Don Elkins : 1950 (68 y.o.) ROOM: [place] [address] ADMISSION DATE: 04/09/2019 PATIENT DIAGNOSIS(ES): Impaired gait and mobility [R26.89] No chief complaint on file. Patient Active Problem List Diagnosis Date Noted Iron deficiency anemia 04/09/2019 Meralgia paresthetica 04/09/2019 Obstructive sleep apnea syndrome 04/09/2019 Abnormality of gait and mobility due to Impaired Mobility and ADL's due to Severe Lumbar Spinal Stenosis. [facility] admit 04/09/19. 04/09/2019 CKD (chronic kidney disease) 04/08/2019 Hyperkalemia 04/08/2019 Sinus tachycardia 04/08/2019 Metabolic acidosis, normal anion gap (NAG) 04/08/2019 Nausea and vomiting 04/08/2019 Postoperative fever 04/08/2019 Elevated bilirubin 04/08/2019 Type 2 diabetes mellitus with hyperglycemia, with long-term current use of insulin ([facility]) 04/08/2019 Sepsis ([facility]) 04/07/2019 Spinal stenosis of lumbar region with radiculopathy 03/30/2019 Lumbar spondylosis 03/30/2019 [facility]'s disease ([facility]) 03/30/2019 Cancer ([facility]) 03/30/2019 Restless leg syndrome 03/30/2019 Former smoker, stopped smoking in distant past 03/30/2019 Tremors of nervous system 03/30/2019 Thyroid disease 03/30/2019 HTN (hypertension) 03/30/2019 Hyperlipidemia 03/30/2019 Acid reflux 03/30/2019 Psoriasis 03/30/2019 Depression 03/30/2019 Diverticulosis large intestine w/o perforation or abscess w/o bleeding 01/07/2019 Coronary arteriosclerosis 05/25/2018 Acute kidney failure (HCC) 04/07/2018 Major depressive disorder, single episode, unspecified 04/07/2018 CAD (coronary artery disease) 03/19/2018 Past Medical History: Diagnosis Date Acute non-ST elevation myocardial infarction (NSTEMI) ([facility]) Acute post-hemorrhagic anemia Acute respiratory insufficiency following thoracic surgery Bronchiectasis (HCC) CAD (coronary artery disease) 03/2018 Triple bypass Calculus of urinary tract Cancer ([facility]) prostatectomy Chronic back pain CKD (chronic kidney disease) COPD (chronic obstructive pulmonary disease) (HCC) Diabetes mellitus (HCC) dx 2016 Diverticulosis of large intestine DVT (deep venous thrombosis) (HCC) GERD (gastroesophageal reflux disease) Hx of blood clots 02/2018 PE Hyperlipidemia meds > 20 yrs Hypertension meds > 20 yrs Lumbar stenosis with neurogenic claudication Primary adrenocortical insufficiency (HCC) Pulmonary embolism (HCC) 06/23/2018 2018 / has been on Coumadin since / Pulmonary embolism without acute cor pulmonale (HCC) Restless leg syndrome RLS (restless legs syndrome) Sleep apnea Thyroid disease meds > 25 yrs Tubular adenoma of colon Past Surgical History: Procedure Laterality Date APPENDECTOMY at age 10 CARDIAC SURGERY 03/2018 Triple bypass CARPAL TUNNEL RELEASE Bilateral CHOLECYSTECTOMY 2013 COLONOSCOPY CYST REMOVAL Bilateral ENDOSCOPY, COLON, DIAGNOSTIC EYE SURGERY Phaco IOL OS FINGER TRIGGER RELEASE Bilateral multiple HEMORRHOID SURGERY IVC FILTER INSERTION 02/2018 IVC FILTER REMOVAL 07/2018 LUMBAR SPINE SURGERY N/A 04/05/2019 L 3, L 4 LUMBAR DECOMPRESSION performed by Reid Mejia MD at [facility] OR NOSE SURGERY x 2 ORs PLANTAR FASCIA SURGERY Left PROSTATECTOMY 2011 DATE ONSET: 04/09/2019 Date of Evaluation: 04/10/2019 Evaluating Therapist: Wendy Devlin 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 Assessment: Cognitive Diagnosis: Pt presents with moderate cognitive-linguistic deficits characterized by high-level word finding, paragraph comprehension, short-term memory, verbal reasoning, and problem solving deficits Recommendations: Requires 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 Intervention: Yes Duration/Frequency of Treatment: 3-5x/week of individual and/or group treatment sessions, as applicable, during LOS or until goals met Goals: Short-term Goals Timeframe for Short-term Goals: 3-5x/week of individual and/or group treatment sessions, as applicable, during LOS or until goals met Goal 1: To increase safety awareness and judgment for safe completion of ADLs secondary to pt's cognitive deficits, pt will complete mod-high level problem solving tasks related to ADLs with 80% accuracy and min cues. Goal 2: To increase independence for functional activities for home and community, pt will completemid level executive functioning tasks (i.e. Path finding, scheduling appointments, prioritizing tasks) with 80% acc given min cues. Goal 3: To promote awareness and functionality of compensatory strategies in light of pt's cognitive deficits, pt will recall 3 memory strategies with min cues and utilize them in structured tasks in80% of opportunities with min cues. Goal 4: To increase safety awareness and judgment for safe completion of ADLs secondary to pt's cognitive deficits, pt will complete abstract reasoning tasks (i.e. Word deduction, convergent and divergent naming, similarities/differences) with 80% accuracy and min cues. Goal 5: Within 1-5 days [address] POC, pt's functional reading/writing skills will be assessed in relation to executive functioning (e.g. bill paying, reading rx labels, completing personal information), with additional goals added to pt's POC as deemed necesary by treating 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. Long-term Goals Timeframe for Long-term Goals: 3-5x/week of individual and/or group treatment sessions, as applicable, during LOS or until goals met Goal 1: Pt will improve his Cognition from Min A assist to Mod A for adequate functional recall andsafety awareness for the home and community settings. Patient/family involved in developing goals and treatment plan: Pt involved. Pt stated concerns with his memory and word finding abilities. Subjective: Previous level of function and limitations: Assistance from with medication management and finances. General Chart Reviewed: Yes Patient assessed for rehabilitation services?: Yes Family / Caregiver Present: No General Comment Comments: Pt reports difficulties that when he is talking sometimes his thoughts just go away. 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 Leisure & Hobbies: wood working. Additional Comments: Pt reports that his is responsible for managing his medications and finances. Vision Vision: Impaired Vision Exceptions: Wears glasses at all times Hearing Hearing: Exceptions to WFL(Tinnitus) Objective: Oral/Motor Oral Motor: Within functional limits Auditory Comprehension Comprehension: Exceptions Yes/No Questions: Mild( simple yes/no, 01/28 re: passage) One Step Basic Commands: (2/2) Two Step Basic Commands: (2/2) Multistep Basic Commands: Moderate(Difficulties following 3-4 step commands) Pictures: (36/36 named) Conversation: Mild Reading Comprehension Reading Status: Unable to assess(to be assessed in therapy) Expression Primary Mode of Expression: Verbal Verbal Expression Verbal Expression: Exceptions to functional limits Repetition: Moderate(9/9 words, 7/8 high probability, 4/6 low probability) Confrontation: (36/36) Convergent: Mild Divergent: Mild(5/6) Responsive: (7/7) Conversation: Moderate(Pt demonstrated significant word finding deficits at the conversation level,demosntrating difficulties rememberign the name of games fela says, names of care team memebrs, and kitchen items during naming task) Written Expression Dominant Hand: Right Written Expression: Unable to assess(to assess in therapy) Motor Speech Motor Speech: Within Functional Limits Pragmatics/Social Functioning Pragmatics: Exceptions to WFL Topic Maintenance: Mild Cognition: Orientation Overall Orientation Status: Impaired Orientation Level: Disoriented to time;Oriented to time;Oriented to situation;Oriented to place Attention Attention: Within Functional Limits Memory Memory: Exceptions to WFL Short-term Memory: Moderate Working Memory: Moderate Problem Solving Problem Solving: Exceptions to WFL Verbal Reasoning Skills: Moderate Abstract Reasoning Abstract Reasoning: Exceptions to WFL Convergent Thinking: Moderate Divergent Thinking: Moderate Additional Assessments: Portions of the RIPA-2 (Ross Information Processing Assessment-2nd Edition ) were administered. Scores are as follows: Subtest: Raw Score Standard Score Percentile I. Immediate Memory 22 10 50 II. Recent Memory 21 9 37 III. Temporal Orientation 28 12 75 VIII. Problem Solving and Abstract Reasoning 22 10 50 Prognosis: Speech Therapy Prognosis Prognosis: Good Prognosis Considerations: Participation Level Individuals consulted Consulted and agree with results and recommendations: Patient;RN Education: Patient Education: Pt educated on results of SLE Patient Education Response: Verbalizes understanding Safety Devices in place: Yes Type of devices: All fall risk precautions in place Pain: Pain Assessment Patient Currently in Pain: Yes Pain Assessment: (unchanged) Pain Level: 3 Pain Type: Surgical pain Pain Location: Back Pain Orientation: Lower Pain Descriptors: Aching, Burning Pain Frequency: Intermittent Clinical Progression: Not changed Patient's Stated Pain Goal: No pain Multiple Pain Sites: No Comprehension: 4- Minimal assist Expression: 4- Minimal assist Problem Solvin- Minimal assist Memory: 3- Moderate assist Therapy Time 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 Individual Minutes Time In: 1020 Time Out: 1052 Minutes: 32 Signature: * Seth Moeller, OTR/L - 04/10/2019 12:39 PM EST The patient completed the [facility] Mental Status (UMS) Examination on this date, which is a useful screening tool for detecting mild cognitive impairment and signs of dementia. Range of impairments based on score are indicated in the chart below: High school education Scoring Less than High School Education 27-30 Normal 25-30 21-26 Mild Neurocognitive disorder 20-24 1-20 Dementia 1-19 Patient's level of education: 2 years of college Patient scored 16 on this date, which indicates dementia. Pt's scores indicate need for further cognitive assessment; physician notified and POC to be assessed as appropriate Results of UMS assessment will be shared in team meeting to assess need for further action. * Sera Escalera, PT - 04/10/2019 12:36 PM EST Facility/Department: [facility] Rehabilitation Initial Assessment: Physical Therapy Room: [facility] NAME: Don Elkins : 1950 Date of Service: 04/10/2019 Rehab Diagnosis(es): Impaired Mobility and ADLs d/t severe lumbar spinal stenosis Patient Active Problem List Diagnosis Date Noted Iron deficiency anemia 04/09/2019 Meralgia paresthetica 04/09/2019 Obstructive sleep apnea syndrome 04/09/2019 Abnormality of gait and mobility due to Impaired Mobility and ADL's due to Severe Lumbar Spinal Stenosis. [facility] admit 04/09/19. 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 Cancer (HCC) 03/30/2019 Restless leg syndrome 03/30/2019 Former smoker, stopped smoking in distant past 03/30/2019 Tremors of nervous system 03/30/2019 Thyroid disease 03/30/2019 HTN (hypertension) 03/30/2019 Hyperlipidemia 03/30/2019 Acid reflux 03/30/2019 Psoriasis 03/30/2019 Depression 03/30/2019 Diverticulosis large intestine w/o perforation or abscess w/o bleeding 01/07/2019 Coronary arteriosclerosis 05/25/2018 Acute kidney failure (HCC) 04/07/2018 Major depressive disorder, single episode, unspecified 04/07/2018 CAD (coronary artery disease) 03/19/2018 Past Medical History: Diagnosis Date Acute non-ST elevation myocardial infarction (NSTEMI) (HCC) Acute post-hemorrhagic anemia Acute respiratory insufficiency following thoracic surgery Bronchiectasis (HCC) CAD (coronary artery disease) 03/2018 Triple bypass Calculus of urinary tract Cancer (HCC) prostatectomy Chronic back pain CKD (chronic kidney disease) COPD (chronic obstructive pulmonary disease) (HCC) Diabetes mellitus (HCC) dx 2016 Diverticulosis of large intestine DVT (deep venous thrombosis) (HCC) GERD (gastroesophageal reflux disease) Hx of blood clots 02/2018 PE Hyperlipidemia meds > 20 yrs Hypertension meds > 20 yrs Lumbar stenosis with neurogenic claudication Primary adrenocortical insufficiency (HCC) Pulmonary embolism (HCC) 06/23/2018 2018 / has been on Coumadin since / Pulmonary embolism without acute cor pulmonale (HCC) Restless leg syndrome RLS (restless legs syndrome) Sleep apnea Thyroid disease meds > 25 yrs Tubular adenoma of colon Past Surgical History: Procedure Laterality Date APPENDECTOMY at age 10 CARDIAC SURGERY 03/2018 Triple bypass CARPAL TUNNEL RELEASE Bilateral CHOLECYSTECTOMY 2013 COLONOSCOPY CYST REMOVAL Bilateral ENDOSCOPY, COLON, DIAGNOSTIC EYE SURGERY Phaco IOL OS FINGER TRIGGER RELEASE Bilateral multiple HEMORRHOID SURGERY IVC FILTER INSERTION 02/2018 IVC FILTER REMOVAL 07/2018 LUMBAR SPINE SURGERY N/A 04/05/2019 L 3, L 4 LUMBAR DECOMPRESSION performed by eRid Mejia MD at [facility] OR NOSE SURGERY x 2 ORs PLANTAR FASCIA SURGERY Left PROSTATECTOMY 2011 Chart Reviewed: Yes Patient assessed for rehabilitation services?: Yes Family / Caregiver Present: No Diagnosis: Impaired Mobility and ADLs d/t severe lumbar spinal stenosis General Comment Comments: Pt resting in bed - agreeable to PT evaluation Restrictions: Restrictions/Precautions: Fall Risk Position Activity Restriction Spinal Precautions: Limit bending/lifting/twisting to within tolerable range; lumbar decompression on 04/05 SUBJECTIVE: Subjective: whatever I need to do to get back to caring for myself. Pre Treatment Pain Screening Comments / Details: Pt denies pain however c/o stiffness of low back at times. Ice provided for comfort. Post Treatment Pain Screening: Pain Assessment Pain Assessment: (unchanged) Prior Level of Function: Social/Functional History Lives With: Spouse Type of Home: House Home Layout: Able to Live on Main level with bedroom/bathroom(Basement workshop) Home Access: Stairs to enter without rails Entrance Stairs - Number of Steps: 1, 3 steps in from garage with rail Bathroom Shower/Tub: Walk-in shower, Tub/Shower unit Bathroom Equipment: Grab bars in shower, Shower chair, Hand-held shower Home Equipment: Cane, Rolling walker ADL Assistance: Independent Homemaking Assistance: Independent Ambulation Assistance: Independent(No AD) Transfer Assistance: Independent Active Driver Trainer: Yes 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 Pt reports to this therapist that he completes most of the housework, does the shopping, cooking and cleaning. OBJECTIVE: Vision/Hearing: Vision Exceptions: Wears glasses at all times Hearing: Within functional limits Cognition: Overall Orientation Status: Within Normal Limits Follows Commands: Within Functional Limits Observation/Palpation Observation: No acute distress noted. Pt alert and attentive. Motivated. ROM: RLE AROM: WFL LLE AROM : WFL Spine Cervical: mild/moderate forward head positioning Thoracic: rounded Lumbar: flattened Special Tests: obtains neutral position in bed Strength: Strength RLE Strength RLE: WFL Strength LLE Strength LLE: WFL Strength Other Other: Formal MMT deferred d/t pain provocation. Neuro: Sensation Overall Sensation Status: WNL Balance Sitting - Static: Good Sitting - Dynamic: Good Standing - Static: Fair Standing - Dynamic: Fair Comments: Will assess TUG this PM. Motor Control Gross Motor?: WNL Bed mobility Rolling to Left: Modified independent Rolling to Right: Modified independent Supine to Sit: Modified independent;Supervision Sit to Supine: Modified independent;Supervision Comment: Increased time to complete. Pt demonstrates logroll. Struggles. Cues for limiting valsalva Transfers Sit to Stand: Modified independent Stand to sit: Supervision;Modified independent Bed to Chair: Modified independent Car Transfer: Modified independent;Supervision Comment: Verbal cues for ergonomic positioning. Ambulation Ambulation?: Yes Ambulation 1 Surface: level tile;carpet Device: No Device Assistance: Modified Independent;Supervision Quality of Gait: Verbal cues for activation of core musculature for added stability and decreased pain Distance: 150ft Stairs/Curb Stairs?: Yes Stairs # Steps : 16 Stairs Height: 6 Rails: Left ascending Assistance: Supervision Comment: Pt cued to complete steps with step to pattern d/t increased truncal instability with reciprocal pattern. Pt follows instruction well. Pt also instructed in double deicer tester lateral negotiation technique to utilize when back is painful. Activity Tolerance Activity Tolerance: Patient Tolerated treatment well Exercises Comments: Supine: SKTC 3 each LE X 30sec hold; bridges X 10; TA sets X 10. Seated: pelvic tilting X10 Quality Indicators (IRF-SHAUNNA): Rolling L and R: Supervision or Touching Assistance - 4 Sit>Supine: Supervision or Touching Assistance - 4 Supine>Sit: Supervision or Touching Assistance - 4 Sit>Stand: Supervision or Touching Assistance - 4 Chair/Bed>Chair Transfer: Supervision or Touching Assistance - 4 Car Transfers: Supervision or Touching Assistance - 4 Walk 10 ft: Supervision or Touching Assistance - 4 Walk 50 ft with two 90 degree turns: Supervision or Touching Assistance - 4 Walk 150 ft in Corridor: Supervision or Touching Assistance - 4 Walking 10 ft on Unlevel Surface: Not attempted due to Environmental Limitations (i.e. weather, equipment unavailable) - 10 Picking up Objects from Standing Position: Not attempted due to Medical Condition or Safety Concerns (I.e. unsafe or physician orders) - 88 Stairs: Yes WC Mobility: No Not Applicable (pt did not complete item prior to admission) - 9 ASSESSMENT: Body structures, Functions, Activity limitations: Decreased functional mobility ;Increased pain;Decreased safe awareness;Decreased posture Decision Making: Low Complexity History: Med Exam: Med Clinical Presentation: Low Prognosis: Good PT Education: Goals;PT Role;Plan of Care;Precautions;General Safety;Disease Specific Education Patient Education: postural education; ergonomics; healing process; chronic pain Barriers to Learning: none at this time CLINICAL IMPRESSION: Continued PT indicated to progress mobility and facilitate DC at highest levelof indep. Rec pt utilize high back armchair in room when OOB PLAN OF CARE: Frequency: 1-2 treatment sessions per day, 5-7 days per week Current Treatment Recommendations: Strengthening, Functional Mobility Training, Neuromuscular Re-education, Home Exercise Program, Equipment Evaluation, Education, & procurement, Transfer Training, Gait Training, Safety Education & Training, Balance Training, Endurance Training, Stair training, Patient/Caregiver Education & Training, Pain Management, Positioning, Manual Therapy - SoftTissue Mobilization, ROM, Modalities Patient's Goal: Get back home GOALS: Short term goals Short term goal 1: Pt to complete HEP with indep Short term goal 2: Pt to complete TUG in 13.5m/s residential goals residential goal 1: Pt to complete all bed mobility with indep residential goal 2: Pt to complete transfers with indep residential goal 3: pt to ambulate >150 ft with no AD independently residential goal 4: pt to navigate 12 steps with 1 HR mod indep ELOS: Plan weeks: 2-3 days Therapy Time: Individual Time In 1100 Time Out 1200 Minutes 60 40 Minutes(transfers 10min; therex 20min; gait 10min) Sera Escalera, PT, 04/10/19 at 12:38 PM * Seth Moeller, OTR/Atilio - 04/10/2019 12:23 PM EST Occupational Therapy Occupational Therapy Initial Assessment Date: 04/10/2019 Patient Name: Don Elkins : 1950 Date of Service: 04/10/2019 Discharge Recommendations: Continue to assess pending progress OT Equipment Recommendations Other: Recommended toilet hygeine wand, sock aid and reefer truck driver. Transfer care to lead OTR Assessment Performance deficits / Impairments: Decreased functional mobility ;Decreased ADL status;Decreased safe awareness;Decreased high-level IADLs Assessment: Pt is a 68 y.o. male with above mentioned deficits impairing ability to safely compelteADL's. Pt may benefit from OT services to address deficits and return to safest and highest level of functioning. Decision Making: Medium Complexity History: Multi comorb Exam: 4 perf imp Assistance / Modification: Min A OT Education: OT Role;Plan of Care Patient Education: Educated pt. on role of acute care OT Barriers to Learning: None REQUIRES OT FOLLOW UP: Yes Activity Tolerance Activity Tolerance: Patient Tolerated treatment well Safety Devices Safety Devices in place: Yes Type of devices: All fall risk precautions in place Patient Diagnosis(es): There were no encounter diagnoses. has a past medical history of Acute non-ST elevation myocardial infarction (NSTEMI) ([facility]), Acute post-hemorrhagic anemia, Acute respiratory insufficiency, Bronchiectasis ([facility]), CAD (coronary artery disease), Calculus of urinary tract, Cancer ([facility]), Chronic back pain, CKD (chronic kidney disease), COPD (chronic obstructive pulmonary disease) ([facility]), Diabetes mellitus ([facility]), Diverticulosis of large intestine, DVT (deep venous thrombosis) ([facility]), GERD (gastroesophageal reflux disease), Hx of blood clots, Hyperlipidemia, Hypertension, Lumbar stenosis with neurogenic claudication, Primary adrenocortical insufficiency ([facility]), Pulmonary embolism ([facility]), Pulmonary embolism without acute cor pulmonale ([facility]), Restless leg syndrome, RLS (restless legs syndrome), Sleep apnea, Thyroid disease, and Tubularadenoma of colon. has a past surgical history that includes Carpal tunnel release (Bilateral, ); Hemorrhoid surgery (); Cardiac surgery (03/2018); Prostatectomy (2011); Colonoscopy; Endoscopy, colon, diagnostic; Cholecystectomy (2013); eye surgery; Appendectomy; cyst removal (Bilateral, ); Nose surgery (); Plantar fascia surgery (Left, ); Finger trigger release (Bilateral, ); IVC filter insertion (02/2018); IVC filter removal (07/2018); and Lumbar spine surgery (N/A, 04/05/2019). Restrictions Restrictions/Precautions Restrictions/Precautions: Fall Risk Position Activity Restriction Spinal Precautions: Limit bending/lifting/twisting to within tolerable range; lumbar decompression on 04/05 Subjective General Chart Reviewed: Yes Patient assessed for rehabilitation services?: Yes Family / Caregiver Present: No Referring Practitioner: Dr. Ellie Juárez Diagnosis: Impaired mobility and ADL's d/t severe lumbar spinal stenosis Patient Currently in Pain: Yes Pain Assessment Pain Assessment: (unchanged) Pain Level: 3 Pain Type: Surgical pain Pain Location: Back Pain Orientation: Lower Non-Pharmaceutical Pain Intervention(s): (Pt stated pain was at an acceptable level for evaluation and that he just got pills prior to eval) Pre Treatment Pain Screening Pain at present: 6 Scale Used: Numeric Score Intervention List: Patient able to continue with treatment Vital Signs Patient Currently in Pain: Yes Social/Functional History Social/Functional History Lives With: Spouse Type of Home: House Home Layout: Able to Live on Main level with bedroom/bathroom(Basement workshop) Home Access: Stairs to enter without rails Entrance Stairs - Number of Steps: 1, 3 steps in from garage with rail Bathroom Shower/Tub: Walk-in shower, Tub/Shower unit Bathroom Equipment: Grab bars in shower, Shower chair, Hand-held shower Home Equipment: Cane, Rolling walker ADL Assistance: Independent Homemaking Assistance: Independent Ambulation Assistance: Independent(No AD) Transfer Assistance: Independent Active Driver Trainer: Yes 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 Pt reports to this therapist that he completes most of the housework, does the shopping, cooking and cleaning. Objective Vision: Impaired Vision Exceptions: Wears glasses at all times Hearing: Within functional limits Orientation Overall Orientation Status: Within Functional Limits Observation/Palpation Observation: No acute distress noted. Pt alert and attentive. Motivated. Balance Sitting Balance: Supervision Standing Balance: Supervision Functional Mobility Functional - Mobility Device: No device Activity: Other Assist Level: Supervision Toilet Transfers Toilet Transfer: Unable to assess Shower Transfers Shower - Transfer From: (ambulating with no AD) Shower - Transfer Type: To Shower - Transfer To: Shower seat with back Shower - Technique: Ambulating Shower Transfers: Supervision Shower Transfers Comments: use of grab bars ADL Feeding: Independent Grooming: Supervision UE Bathing: Supervision(assist to wrap plastic bag around surgial site ) LE Bathing: Supervision(pt stood to shower, placed foot on shower chair to wash feet while holding on to grab bar ) UE Dressing: Supervision(pt able to retrieve clothes, supervision ) LE Dressing: Minimal assistance(to thread pull up brief LLE, pt typically wears at home ) Toileting: Unable to assess(comment)(pt reported using toilet prior to therapist arrival ) Additional Comments: VC to sit when dressing LB for safety and to decrease pain Tone RUE RUE Tone: Normotonic Tone LUE LUE Tone: Normotonic Coordination Movements Are Fluid And Coordinated: Yes Bed mobility Supine to Sit: Unable to assess(pt standing in room upon therpaist arrival ) Sit to Supine: Unable to assess Transfers Sit to stand: Supervision Stand to sit: Supervision Cognition Overall Cognitive Status: Exceptions Arousal/Alertness: Appropriate responses to stimuli Following Commands: Follows multistep commands with repitition Attention Span: Appears intact Memory: Decreased short term memory Safety Judgement: Decreased awareness of need for safety Problem Solving: Assistance required to generate solutions;Assistance required to implement solutions Insights: Decreased awareness of deficits Initiation: Does not require cues Sequencing: Does not require cues Cognition Comment: Comp 6 Exp 6 Prob 5 Social 7 Mem 5 Perception Overall Perceptual Status: WFL Sensation Overall Sensation Status: WNL LUE AROM (degrees) LUE AROM : WFL Left Hand AROM (degrees) Left Hand AROM: WFL RUE AROM (degrees) RUE AROM : WFL Right Hand AROM (degrees) Right Hand AROM: WFL LUE Strength L Hand General: 4/5 LUE Strength Comment: 4/5 RUE Strength R Hand General: 4/5 RUE Strength Comment: 4/5 Hand Dominance Hand Dominance: Right Plan Plan Times per week: 5-7 Plan weeks: <1 week Current Treatment Recommendations: Safety Education & Training, Patient/Caregiver Education & Training, Equipment Evaluation, Education, & procurement, Self-Care / ADL, Home Management Training, Neuromuscular Re- education, Pain Management Goals Patient Goals Patient goals : To start moving again. [x] Patient will complete self care as followed using the recommended adaptive equipment and/or adaptive techniques as instructed: Feeding:IND Grooming: IND Bathing: Mod IND UE Dressing: IND LE Dressing: Mod IND Toileting: Mod IND Toilet Transfers: Mod IND Tub Transfers: Mod IND [] Patient will sequence self-care routine with and verbal/tactile cues. [] Patient will improve UE sensation and/or utilize compensatory techniques for safe completion of self-care as projected. [x] Patient will improve static and dynamic standing balance to complete pants management at IND level [] Patient will improve UE Function (AROM, strength, motor control, tone normalization) to completeADLs as projected. [] Patient will improve functional endurance to tolerate/complete minutes of ADLs. [] Patient will improve UE strength and endurance to in order to participate in self-care activities as projected. [] Patient will improve hand fine motor coordination to in order to manage clothing fasteners/self-care containers in a timely manner [] Patient will improve visual perception to in order to improve participation in self care and leisure activities [] Patient will perform kitchen mobility at device level without episodes of LOB and good safety awareness [x] Patient will perform basic room mobility at IND level. [] Patient will access appropriate D/C site with as few architectural barriers as possible. [] Patient and/or caregiver will demonstrate understanding of hip precautions with verbal/tactile cues. [] Patient and/or caregiver will demonstrate understanding of energy conservation techniques with verbal/tactile cues. [] Patient and/or caregiver will demonstrate understanding of recommended HEP for . [x] Patient's cognition will improve to safely perform ADLs: Comprehension: 6 Expression: 6 Social Interaction: 7 Problem Solvin Memory: 6 SLUMS completed during OT eval Therapy Time Individual Concurrent Group Co-treatment Time In 0800 Time Out 0900 Minutes 60 Seth Moeller OTR/L * Wendy Devlin, 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 - 04/10/2019 12:16 PM EST [facility] Facility/Department: [facility] Speech Language Pathology Clinical Bedside Swallow Evaluation NAME:Don Elkins : 1950 (68 y.o.) [id number] DATE: 04/09/2019 PATIENT DIAGNOSIS(ES): Impaired gait and mobility [R26.89] No chief complaint on file. Patient Active Problem List Diagnosis Date Noted Iron deficiency anemia 04/09/2019 Meralgia paresthetica 04/09/2019 Obstructive sleep apnea syndrome 04/09/2019 Abnormality of gait and mobility due to Impaired Mobility and ADL's due to Severe Lumbar Spinal Stenosis. [facility] admit 04/09/19. 04/09/2019 CKD (chronic kidney disease) 04/08/2019 Hyperkalemia 04/08/2019 Sinus tachycardia 04/08/2019 Metabolic acidosis, normal anion gap (NAG) 04/08/2019 Nausea and vomiting 04/08/2019 Postoperative fever 04/08/2019 Elevated bilirubin 04/08/2019 Type 2 diabetes mellitus with hyperglycemia, with long-term current use of insulin ([facility]) 04/08/2019 Sepsis ([facility]) 04/07/2019 Spinal stenosis of lumbar region with radiculopathy 03/30/2019 Lumbar spondylosis 03/30/2019 [facility] disease ([facility]) 03/30/2019 Cancer ([facility]) 03/30/2019 Restless leg syndrome 03/30/2019 Former smoker, stopped smoking in distant past 03/30/2019 Tremors of nervous system 03/30/2019 Thyroid disease 03/30/2019 HTN (hypertension) 03/30/2019 Hyperlipidemia 03/30/2019 Acid reflux 03/30/2019 Psoriasis 03/30/2019 Depression 03/30/2019 Diverticulosis large intestine w/o perforation or abscess w/o bleeding 01/07/2019 Coronary arteriosclerosis 05/25/2018 Acute kidney failure (HCC) 04/07/2018 Major depressive disorder, single episode, unspecified 04/07/2018 CAD (coronary artery disease) 03/19/2018 Past Medical History: Diagnosis Date Acute non-ST elevation myocardial infarction (NSTEMI) ([facility]) Acute post-hemorrhagic anemia Acute respiratory insufficiency following thoracic surgery Bronchiectasis ([facility]) CAD (coronary artery disease) 03/2018 Triple bypass Calculus of urinary tract Cancer ([facility]) prostatectomy Chronic back pain CKD (chronic kidney disease) COPD (chronic obstructive pulmonary disease) (HCC) Diabetes mellitus ([facility]) dx 2016 Diverticulosis of large intestine DVT (deep venous thrombosis) ([facility]) GERD (gastroesophageal reflux disease) Hx of blood clots 02/2018 PE Hyperlipidemia meds > 20 yrs Hypertension meds > 20 yrs Lumbar stenosis with neurogenic claudication Primary adrenocortical insufficiency (HCC) Pulmonary embolism ([facility]) 06/23/2018 2018 / has been on Coumadin since / Pulmonary embolism without acute cor pulmonale (HCC) Restless leg syndrome RLS (restless legs syndrome) Sleep apnea Thyroid disease meds > 25 yrs Tubular adenoma of colon Past Surgical History: Procedure Laterality Date APPENDECTOMY at age 10 CARDIAC SURGERY 03/2018 Triple bypass CARPAL TUNNEL RELEASE Bilateral CHOLECYSTECTOMY 2013 COLONOSCOPY CYST REMOVAL Bilateral ENDOSCOPY, COLON, DIAGNOSTIC EYE SURGERY Phaco IOL OS FINGER TRIGGER RELEASE Bilateral multiple HEMORRHOID SURGERY IVC FILTER INSERTION 02/2018 IVC FILTER REMOVAL 07/2018 LUMBAR SPINE SURGERY N/A 04/05/2019 L 3, L 4 LUMBAR DECOMPRESSION performed by Reid Mejia MD at [facility] OR NOSE SURGERY x 2 ORs PLANTAR FASCIA SURGERY Left PROSTATECTOMY 2011 No Known Allergies DATE ONSET: 04/09/2019 Date of Evaluation: 04/10/2019 Evaluating Therapist: Wendy Devlin, DHIRAJ Recommended Diet and Intervention Diet Solids Recommendation: Regular Liquid Consistency Recommendation: Thin Recommended Form of Meds: Whole with water Compensatory Swallowing Strategies Compensatory Swallowing Strategies: Alternate solids and liquids Reason for Referral Don Elkins was referred for a bedside swallow evaluation to assess the efficiency of his swallow function, identify signs and symptoms of aspiration and make recommendations regarding safe dietary consistencies, effective compensatory strategies, and safe eating environment. General Chart Reviewed: Yes Behavior/Cognition: Alert;Cooperative;Pleasant mood Respiratory Status: Room air Communication Observation: Functional Follows Directions: Simple Dentition: Adequate Patient Positioning: Upright in bed Baseline Vocal Quality: Normal Volitional Cough: Strong Consistencies Administered: Reg solid;Thin Current Diet level: Current Diet : Regular Current Liquid Diet : Thin Oral Motor Deficits Oral/Motor Oral Motor: Within functional limits Oral Phase Dysfunction Oral Phase Oral Phase: WFL Oral Phase Oral Phase - Comment: Pt presents with oral phase WFL. Pt with clear oral cavity post all PO intakeand WFL limits masticaiton for regular solid. Indicators of Pharyngeal Phase Dysfunction Pharyngeal Phase Pharyngeal Phase: WFL Pharyngeal Phase Pharyngeal: Pt presents with pharyngeal phase WFL. No overt s/s of aspiration or difficulty swallowing observed. Pt with clear vocal quality post all PO intake. No coughing or throat clearing observed. Good hyolaryngeal elevation as measured by manual palpation. Impression Dysphagia Diagnosis: Swallow function appears grossly intact Dysphagia Outcome Severity Scale: Level 6: Within functional limits/Modified independence Treatment Plan Requires 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 Intervention: No Duration/Frequency of Treatment: no f/u Referral To: GI Treatment/Goals Prognosis Individuals consulted Consulted and agree with results and recommendations: Patient;RN(Awilda MENDEZ) Education Patient Education: Pt educated on results of BSE. Patient Education Response: Verbalizes understanding Safety Devices in place: Yes [x] Awilda RN notified Pain: Pain Assessment Patient Currently in Pain: Yes Pain Assessment: 0-10 Pain Level: 3 Pt stated pain level was acceptable for evaluation (sitting in bed) and that he had just got pain pills this morning. Therapy Time 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 Individual Minutes Time In: 1052 Time Out: 1100 Minutes: 8 Signature: * Cristinao Agosto RPH - 04/10/2019 12:14 PM EST Clinical Pharmacy Note Warfarin consult follow-up Recent Labs 04/10/19 0538 INR 1.1 Recent Labs 04/07/19 1830 04/07/19 2333 04/08/19 0324 04/09/19 0505 HGB 13.5* 11.2* 11.2* 10.6* HCT 39.9* -- 34.0* 31.5* PLT 178 -- 153 169 Significant drug:drug interactions: Acetaminophen, citalopram, enoxaparin, fludrocortisone, hydrocortisone, levothyroxine, ropinirole, simvastatin Notes: Date INR Warfarin Dose 04/08/19 1.2 10 mg 04/09/19 1.1 10 mg 04/09/19 1.1 15 mg Patients INR remains subtherapeutic at 1.1- untouched by administration of 10 mg warfarin x 2 doses. Goal 2-3. Given one dose of 15 mg today x 1. Daily PT/INR until stable within therapeutic range. Cristiano Agosto, PharmHenrietta 04/10/2019 12:13 PM documented in this encounter* Debbie Morin RN - 04/09/2019 1:24 PM EST Rec'd referral from Dr. Mejia for cardiac rehab. No noted cardiology on case so called pt. Nurse caring for him today and she states that the order was for strengthening post back surgery. She will f/uwith Dr. Mejia to clarify order/referral. * Lulu Lee RPH - 04/09/2019 1:12 PM EST Clinical Pharmacy Note Warfarin consult follow-up Recent Labs 04/09/19 0934 INR 1.1 Recent Labs 04/07/19 1830 04/07/19 2333 04/08/19 0324 04/09/19 0505 HGB 13.5* 11.2* 11.2* 10.6* HCT 39.9* -- 34.0* 31.5* PLT 178 -- 153 169 Significant drug:drug interactions: New warfarin drug-drug interactions: None Discontinued drug-drug interactions: None Current warfarin drug-drug interactions: Acetaminophen, citalopram, enoxaparin, fludrocortisone, hydrocortisone, levothyroxine, oxycodone-acetaminophen, ropinirole, simvastatin Notes: Date INR Warfarin Dose 04/08/19 1.2 10 mg 04/09/19 1.1 10 mg INR subtherapeutic at 1.1 and decreased from yesterday. Give another booster dose with warfarin 10 mg today to reach INR goal of 2-3. Patient still on Lovenox 40 mg subq daily until INR reaches therapeutic level. Daily PT/INR until stable within therapeutic range. Lulu Lee PharmD 04/09/2019 1:12 PM * Cinthya Alcazar, PT - 04/09/2019 10:42 AM EST Physical Therapy Med Surg Initial Assessment Facility/Department: [address] TELE Room: [place] [id number] NAME: Don Elkins : 1950 (68 y.o.) CODE STATUS: Full Code Date of Service: 04/09/2019 Patient Diagnosis(es): Sepsis (HCC) [A41.9] Chief Complaint Patient presents with Post-op Problem Had surgery friday on low back. Pt has intermittent fever, vomiting and redness around the incision Patient Active Problem List Diagnosis Date Noted Iron deficiency anemia 04/09/2019 Meralgia paresthetica 04/09/2019 Obstructive sleep apnea syndrome 04/09/2019 CKD (chronic kidney disease) 04/08/2019 Hyperkalemia 04/08/2019 Sinus tachycardia 04/08/2019 Metabolic acidosis, normal anion gap (NAG) 04/08/2019 Nausea and vomiting 04/08/2019 Postoperative fever 04/08/2019 Elevated bilirubin 04/08/2019 Type 2 diabetes mellitus with hyperglycemia, with long-term current use of insulin (HCC) 04/08/2019 Sepsis ([facility]) 04/07/2019 Spinal stenosis of lumbar region with radiculopathy 03/30/2019 Lumbar spondylosis 03/30/2019 [facility] disease ([facility]) 03/30/2019 Cancer ([facility]) 03/30/2019 Restless leg syndrome 03/30/2019 Former smoker, stopped smoking in distant past 03/30/2019 Tremors of nervous system 03/30/2019 Thyroid disease 03/30/2019 HTN (hypertension) 03/30/2019 Hyperlipidemia 03/30/2019 Acid reflux 03/30/2019 Psoriasis 03/30/2019 Depression 03/30/2019 Diverticulosis large intestine w/o perforation or abscess w/o bleeding 01/07/2019 Pulmonary embolism ([facility]) 06/23/2018 Coronary arteriosclerosis 05/25/2018 Acute kidney failure ([facility]) 04/07/2018 Major depressive disorder, single episode, unspecified 04/07/2018 Past Medical History: Diagnosis Date Acute non-ST elevation myocardial infarction (NSTEMI) ([facility]) Acute post-hemorrhagic anemia Acute respiratory insufficiency following thoracic surgery Bronchiectasis (HCC) CAD (coronary artery disease) 03/2018 Triple bypass Calculus of urinary tract Cancer ([facility]) prostatectomy Chronic back pain CKD (chronic kidney disease) COPD (chronic obstructive pulmonary disease) (HCC) Diabetes mellitus (HCC) dx 2016 Diverticulosis of large intestine DVT (deep venous thrombosis) ([facility]) GERD (gastroesophageal reflux disease) Hx of blood clots 02/2018 PE Hyperlipidemia meds > 20 yrs Hypertension meds > 20 yrs Lumbar stenosis with neurogenic claudication Primary adrenocortical insufficiency (HCC) Pulmonary embolism ([facility]) 06/23/2018 2018 / has been on Coumadin since / Pulmonary embolism without acute cor pulmonale (HCC) Restless leg syndrome RLS (restless legs syndrome) Sleep apnea Thyroid disease meds > 25 yrs Tubular adenoma of colon Past Surgical History: Procedure Laterality Date APPENDECTOMY at age 10 CARDIAC SURGERY 03/2018 Triple bypass CARPAL TUNNEL RELEASE Bilateral CHOLECYSTECTOMY 2014 COLONOSCOPY CYST REMOVAL Bilateral ENDOSCOPY, COLON, DIAGNOSTIC EYE SURGERY Phaco IOL OS FINGER TRIGGER RELEASE Bilateral multiple HEMORRHOID SURGERY IVC FILTER INSERTION 02/2018 IVC FILTER REMOVAL 07/2018 LUMBAR SPINE SURGERY N/A 04/05/2019 L 3, L 4 LUMBAR DECOMPRESSION performed by Reid Mejia MD at [facility] NOSE SURGERY x 2 ORs PLANTAR FASCIA SURGERY Left PROSTATECTOMY 2011 Chart Reviewed: Yes Patient assessed for rehabilitation services?: Yes Family / Caregiver Present: No General Comment Comments: Pt sitting up at EOB with bed alarm sounding when this therapist entered. Pt agreeable toeval, states he does not feel ready to return home. Restrictions: Restrictions/Precautions: Fall Risk Position Activity Restriction Spinal Precautions: Limit bending/lifting/twisting; lumbar decompression on 04/05 SUBJECTIVE: Pre Treatment Pain Screening Pain at present: 2(at rest) Intervention List: Nurse/physician notified Comments / Details: RN in to admin meds Post Treatment Pain Screening: Pain Assessment Pain Assessment: 0-10 Pain Level: 7(after mobility) Pain Type: Surgical pain Pain Location: Back Prior Level of Function: Social/Functional History Lives With: Spouse Type of Home: House Home Layout: Able to Live on Main level with bedroom/bathroom(Basement workshop) Home Access: Stairs to enter without rails Entrance Stairs - Number of Steps: 1, 3 steps in from garage with rail Bathroom Shower/Tub: Walk-in shower, Tub/Shower unit Bathroom Equipment: Grab bars in shower, Shower chair, Hand-held shower Home Equipment: Cane, Rolling walker ADL Assistance: Independent Homemaking Assistance: Independent Ambulation Assistance: Independent(No AD) Transfer Assistance: Independent Active Driver Trainer: Yes Occupation: Retired Additional Comments: Spouse is also limited by pain in her back; pt. at times has to help lift her.Has gallery assistant occasionally. Spouse uses adaptive mobility equipment OBJECTIVE: Vision/Hearing: Vision: Impaired Vision Exceptions: Wears glasses at all times Hearing: Within functional limits Cognition: Overall Orientation Status: Within Functional Limits Follows Commands: Within Functional Limits ROM: RLE AROM: WFL LLE AROM : WFL Strength: Strength RLE Strength RLE: WFL Strength LLE Strength LLE: WFL Strength Other Other: trunk strength limited based on mobility assessment Neuro: Balance Sitting - Static: Good Sitting - Dynamic: Good Standing - Static: Good;- Standing - Dynamic: Fair;+ Motor Control Gross Motor?: WFL Sensation Overall Sensation Status: WFL Bed mobility Supine to Sit: Stand by assistance(pt able to get up to EOB without assist) Sit to Supine: Unable to assess(pt up to chair) Transfers Sit to Stand: Stand by assistance Stand to sit: Stand by assistance Bed to Chair: Stand by assistance Ambulation Ambulation?: Yes Ambulation 1 Surface: level tile Device: No Device Assistance: Contact guard assistance Quality of Gait: decreased stance time on LLE, R lateral shift, decreased olga lidia and wide NABIL Distance: 30 ft, 60 ft Activity Tolerance Activity Tolerance: Patient Tolerated treatment well ASSESSMENT: Body structures, Functions, Activity limitations: Decreased functional mobility ;Decreased strength;Decreased endurance;Decreased balance;Increased pain Decision Making: Medium Complexity History: medium Exam: medium Clinical Presentation: medium Prognosis: Good PT Education: Goals;PT Role;Precautions;General Safety DISCHARGE RECOMMENDATIONS: Discharge Recommendations: Patient would benefit from continued therapy after discharge Assessment: Pt demonstrates the above deficits and decline in functional mobility s/p lumbar surgery. Pt had initially returned home to re-admit to hospital 2 days later. Pt would benefit from physical therapy to address above deficits and allow for safe return home at highest level of function, decrease risk for falls, and improve QOL. REQUIRES PT FOLLOW UP: Yes PLAN OF CARE: Plan Times per week: 3-6 Current Treatment Recommendations: Strengthening, Functional Mobility Training, Neuromuscular Re-education, Home Exercise Program, Equipment Evaluation, Education, & procurement, Transfer Training, Gait Training, Safety Education & Training, Balance Training, Endurance Training, Stair training, Patient/Caregiver Education & Training, Pain Management, Positioning, Manual Therapy - SoftTissue Mobilization Safety Devices Type of devices: Call light within reach, Chair alarm in place Goals: Patient goals : to get better long term goals long term goal 1: indep with bed mobility utilizing log roll long term goal 2: pt to be indep with transfers long term goal 3: pt to ambulate >150 ft with no AD independently long term goal 4: pt to navigate 12 steps with 1 HR mod indep [facility] (6 CLICK) BASIC MOBILITY AM-PAC Inpatient Mobility Raw Score : 17 Therapy Time: Individual Time In 0941 Time Out 0955 Minutes 14 Cinthya Alcazar, PT, 04/09/19 at 10:42 AM * Ny Arana, OTR/L - 04/09/2019 10:15 AM EST KAE SANDERSONJUSTEN OCCUPATIONAL THERAPY EVALUATION - ACUTE NAME: Don Elkins : 1950 (68 y.o.) CODE STATUS: Full Code Room: [facility]/W276-01 Date of Service: 04/09/2019 Patient Diagnosis(es): Sepsis (HCC) [A41.9] Chief Complaint Patient presents with Post-op Problem Had surgery friday on low back. Pt has intermittent fever, vomiting and redness around the incision Patient Active Problem List Diagnosis Date Noted Iron deficiency anemia 04/09/2019 Meralgia paresthetica 04/09/2019 Obstructive sleep apnea syndrome 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 Cancer (HCC) 03/30/2019 Restless leg syndrome 03/30/2019 Former smoker, stopped smoking in distant past 03/30/2019 Tremors of nervous system 03/30/2019 Thyroid disease 03/30/2019 HTN (hypertension) 03/30/2019 Hyperlipidemia 03/30/2019 Acid reflux 03/30/2019 Psoriasis 03/30/2019 Depression 03/30/2019 Diverticulosis large intestine w/o perforation or abscess w/o bleeding 01/07/2019 Pulmonary embolism (HCC) 06/23/2018 Coronary arteriosclerosis 05/25/2018 Acute kidney failure (HCC) 04/07/2018 Major depressive disorder, single episode, unspecified 04/07/2018 Past Medical History: Diagnosis Date Acute non-ST elevation myocardial infarction (NSTEMI) (HCC) Acute post-hemorrhagic anemia Acute respiratory insufficiency following thoracic surgery Bronchiectasis (HCC) CAD (coronary artery disease) 03/2018 Triple bypass Calculus of urinary tract Cancer (HCC) prostatectomy Chronic back pain CKD (chronic kidney disease) COPD (chronic obstructive pulmonary disease) (HCC) Diabetes mellitus (HCC) dx 2016 Diverticulosis of large intestine DVT (deep venous thrombosis) (HCC) GERD (gastroesophageal reflux disease) Hx of blood clots 02/2018 PE Hyperlipidemia meds > 20 yrs Hypertension meds > 20 yrs Lumbar stenosis with neurogenic claudication Primary adrenocortical insufficiency (HCC) Pulmonary embolism (HCC) 06/23/2018 2018 / has been on Coumadin since / Pulmonary embolism without acute cor pulmonale (HCC) Restless leg syndrome RLS (restless legs syndrome) Sleep apnea Thyroid disease meds > 25 yrs Tubular adenoma of colon Past Surgical History: Procedure Laterality Date APPENDECTOMY at age 10 CARDIAC SURGERY 03/2018 Triple bypass CARPAL TUNNEL RELEASE Bilateral CHOLECYSTECTOMY 2013 COLONOSCOPY CYST REMOVAL Bilateral ENDOSCOPY, COLON, DIAGNOSTIC EYE SURGERY Phaco IOL OS FINGER TRIGGER RELEASE Bilateral multiple HEMORRHOID SURGERY IVC FILTER INSERTION 02/2018 IVC FILTER REMOVAL 07/2018 LUMBAR SPINE SURGERY N/A 04/05/2019 L 3, L 4 LUMBAR DECOMPRESSION performed by Reid Mejia MD at [facility] OR NOSE SURGERY x 2 ORs PLANTAR FASCIA SURGERY Left PROSTATECTOMY 2011 Restrictions Restrictions/Precautions: Fall Risk Position Activity Restriction Spinal Precautions: Limit bending/lifting/twisting Safety Devices: Safety Devices Safety Devices in place: Yes Type of devices: All fall risk precautions in place Subjective Pre Treatment Pain Screening Pain at present: 2 Scale Used: Numeric Score Intervention List: Patient able to continue with treatment, Patient declined any intervention Pain Reassessment: Pain Assessment Patient Currently in Pain: Yes Pain Assessment: 0-10 Pain Level: 2 Pain Type: Surgical pain Pain Location: Back Pain Descriptors: Aching, Burning Prior Level of Function: Social/Functional History Lives With: Spouse Type of Home: House Home Layout: Able to Live on Main level with bedroom/bathroom(Basement workshop) Home Access: Stairs to enter without rails Entrance Stairs - Number of Steps: 1, 3 steps in from garage with rail Bathroom Shower/Tub: Walk-in shower, Tub/Shower unit Bathroom Equipment: Grab bars in shower, Shower chair, Hand-held shower Home Equipment: Cane, Rolling walker ADL Assistance: Independent Homemaking Assistance: Independent Ambulation Assistance: Independent(No AD) Transfer Assistance: Independent Active Driver Trainer: Yes Occupation: Retired Additional Comments: Spouse is also limited by pain in her back; pt. at times has to help lift her.Has gallery assistant occasionally. Spouse uses adaptive mobility equipment OBJECTIVE: Orientation Status: Orientation Overall Orientation Status: Within Functional Limits Observation: Observation/Palpation Posture: Fair Observation: Pt. alert and attentive Cognition Status: Cognition Overall Cognitive Status: WFL Perception Status: Perception Overall Perceptual Status: WFL Sensation Status: Sensation Overall Sensation Status: WFL Vision and Hearing Status: Vision Vision: Impaired Vision Exceptions: Wears glasses at all times Hearing Hearing: Within functional limits ROM: LUE AROM (degrees) LUE AROM : WFL Left Hand AROM (degrees) Left Hand AROM: WFL RUE AROM (degrees) RUE AROM : WFL Right Hand AROM (degrees) Right Hand AROM: WFL Strength: LUE Strength Gross LUE Strength: WFL L Hand General: 4/5 LUE Strength Comment: 4/5 all planes RUE Strength Gross RUE Strength: WFL R Hand General: 4/5 RUE Strength Comment: 4/5 all planes Coordination, Tone, Quality of Movement: Tone RUE RUE Tone: Normotonic Tone LUE LUE Tone: Normotonic Coordination Movements Are Fluid And Coordinated: Yes Hand Dominance: Hand Dominance Hand Dominance: Right ADL Status: ADL Feeding: Independent Grooming: Supervision UE Bathing: Supervision LE Bathing: Minimal assistance UE Dressing: Supervision LE Dressing: Minimal assistance Toileting: Minimal assistance Additional Comments: Simulated ADLs as above. Pt. with mild LOB and decreased strength noted. Unable to perform figure 4 efficiently for LE dressing. Increased time for problem solving and memory Toilet Transfers Toilet Transfer: Unable to assess Toilet Transfers Comments: Anticipate CGA based on other mobility Functional Mobility: Functional Mobility Functional - Mobility Device: No device Activity: Other Assist Level: Stand by assistance Functional Mobility Comments: Household distance in hallway. SBA, uses rail on wall and increased time throughout to address balance loss Transfers Sit to stand: Contact guard assistance Stand to sit: Contact guard assistance Bed Mobility Bed mobility Comment: Pt. sitting EOB at start and chair at end of tx. Anticipate SBA to min A based on other mobility Seated and Standing Balance: Balance Sitting Balance: Supervision Standing Balance: Stand by assistance Functional Endurance: Activity Tolerance Activity Tolerance: Patient Tolerated treatment well D/C Recommendations: OT D/C RECOMMENDATIONS REQUIRES OT FOLLOW UP: Yes Equipment Recommendations: OT Equipment Recommendations Other: Continue to assess OT Education: OT Education OT Education: OT Role, Plan of Care Patient Education: Educated pt. on role of acute care OT Barriers to Learning: None OT Follow Up: OT D/C RECOMMENDATIONS REQUIRES OT FOLLOW UP: Yes Assessment/Discharge Disposition: Assessment: Pt. is a 68 year old man from home with spouse who presents to [facility] with the above deficits which impact his ability to perform ADLs and IADLs. Pt. would benefit from skilled OT to maximize independence and safety with ADL tasks. Performance deficits / Impairments: Decreased functional mobility , Decreased ADL status, Decreasedendurance, Decreased balance, Decreased high-level IADLs, Decreased safe awareness Prognosis: Good Discharge Recommendations: Continue to assess pending progress Decision Making: Medium Complexity History: Pt's medical history is moderately complex Exam: Pt. has 6 performance deficits Assistance / Modification: Pt. requires mod A Six Click Score How much help for putting on and taking off regular lower body clothing?: A Little How much help for Bathing?: A Little How much help for Toileting?: A Little How much help for putting on and taking off regular upper body clothing?: None How much help for taking care of personal grooming?: None How much help for eating meals?: None AM-[facility] Inpatient Daily Activity Raw Score: 21 AM-[facility] Inpatient ADL T-Scale Score : 44.27 ADL Inpatient CMS 0-100% Score: 32.79 Plan: Plan Times per week: 1-3x Plan weeks: Length of acute stay Current Treatment Recommendations: Balance Training, Functional Mobility Training, Neuromuscular Re-education, Pain Management, Safety Education & Training, Patient/Caregiver Education & Training, Equipment Evaluation, Education, & procurement, Self-Care / ADL Goals: Patient will: - Improve functional endurance to tolerate/complete 60 mins of ADL's - Be Mod I in UB ADLs - Be Mod I in LB ADLs - Be Mod I in ADL transfers without LOB - Be Mod I in toileting tasks - Access appropriate D/C site with as few architectural barriers as possible. - Sequence self-care tasks with no verbal cues for spinal precautions Patient Goal: Patient goals : I want to go to rehab and get stronger Discussed and agreed upon: Yes Comments: Therapy Time: OT Individual Minutes Time In: 939 Time Out: 956 Minutes: 17 Other (specify): Eval, 17 minutes Electronically signed by: KENNEDY Barbosa/Atilio 04/09/2019, 10:15 AM * Gerardo Fitzpatrick MD - 04/08/2019 10:49 AM EST Hospitalist Progress Note PCP: Sal Sabillon MD Date of Admission: 04/07/2019 Chief Complaint: Chief Complaint Patient presents with Post-op Problem Had surgery friday on low back. Pt has intermittent fever, vomiting and redness around the incision Subjective: Patient is complaining of fevers, chills and pain; denies CP, SOB, diarrhea, burning micturition. 12 point ROS negative other than mentioned above Medications: Reviewed Infusion Medications dextrose Scheduled Medications sodium chloride flush 10 mL Intravenous 2 times per day guaiFENesin 600 mg Oral BID cefepime 2 g Intravenous Q12H pantoprazole 40 mg Oral QAM AC insulin lispro 0-12 Units Subcutaneous TID WC insulin lispro 0-6 Units Subcutaneous Nightly citalopram 20 mg Oral Daily hydrocortisone 20 mg Oral BID fludrocortisone 0.1 mg Oral Daily insulin glargine 20 Units Subcutaneous Nightly levothyroxine 150 mcg Oral Daily [Held by provider] lisinopril 10 mg Oral Daily metoprolol tartrate 75 mg Oral BID rOPINIRole 8 mg Oral QPM simvastatin 20 mg Oral Nightly PRN Meds: sodium chloride flush, acetaminophen, ondansetron, glucose, dextrose, glucagon (rDNA), dextrose, oxyCODONE-acetaminophen OR oxyCODONE- acetaminophen, promethazine, potassium chloride OR potassium alternative oral replacement OR potassium chloride, potassium chloride Intake/Output Summary (Last 24 hours) at 04/08/2019 1049 Last data filed at 04/08/2019 0928 Gross per 24 hour Intake 120 ml Output 200 ml Net -80 ml Exam: BP 118/71 Pulse 107 Temp 100 F (37.8 C) Resp 16 Ht 5' 7 (1.702 m) Wt 250 lb (113.4 kg) SpO2 91% BMI 39.16 kg/m General appearance: No apparent distress, appears stated age and cooperative. HEENT: Conjunctivae/corneas clear. Neck: Trachea midline. Respiratory: Normal respiratory effort. Clear to auscultation Cardiovascular: Tachycardic Abdomen: Soft, non-tender, non-distended with normal bowel sounds. Musculoskeletal: No clubbing, cyanosis or edema bilaterally Neuro: Non Focal. Capillary Refill: Brisk,< 3 seconds Peripheral Pulses: +2 palpable, equal bilaterally Labs: Recent Labs 04/07/190 04/07/193 04/08/19 0324 WBC 11.9* -- 11.4* HGB 13.5* 11.2* 11.2* HCT 39.9* -- 34.0* PLT 178 -- 153 Recent Labs 04/07/19 1830 04/07/19 2333 04/08/19 0324 NA 128* -- 131* K 5.9* -- 4.8 CL 93* -- 99 CO2 23 -- 23 BUN 20 -- 18 CREATININE 1.97* 1.7* 1.77* CALCIUM 8.9 -- 8.0* Recent Labs 04/07/190 04/08/19 0324 AST 27 17 ALT 41 28 BILIDIR 0.7* 0.6* BILITOT 2.7* 2.6* 2.0* ALKPHOS 52 42 Recent Labs 04/07/19 1830 04/08/19 0323 INR 1.2 1.2 Recent Labs 04/07/191829 CKTOTAL 255* TROPONINI <0.010 Urinalysis: Lab Results Component Value Date NITRU Negative 04/07/2019 WBCUA 0-2 04/07/2019 BACTERIA Negative 04/07/2019 RBCUA 0-2 04/07/2019 BLOODU Negative 04/07/2019 SPECGRAV 1.025 04/07/2019 GLUCOSEU 250 04/07/2019 Radiology: RADIOLOGY REPORT Final Result XR CHEST PORTABLE Final Result Impression: No radiographic evidence of acute cardiopulmonary disease MRI LUMBAR SPINE W WO CONTRAST (Results Pending) Assessment/Plan: #Post op fever - Surgical team and ID consulted; broadening Abx to include vanc/zosyn pending ID consult - No source of infection at this time; CT of surgical site ordered to eval for abscess #Elevated bilirubin - Down trending; RUQ ordered #DMII with hyperglycemia - Monitor today and adjust tomorrow as needed #Brigida disease - Continue steroids #History of PE - Coumadin per pharmacy; lovenox in the meantime Active Hospital Problems Diagnosis Date Noted CKD (chronic kidney disease) [N18.9] 04/08/2019 Metabolic acidosis, normal anion gap (NAG) [E87.2] 04/08/2019 Nausea and vomiting [R11.2] 04/08/2019 Postoperative fever [R50.82] 04/08/2019 Elevated bilirubin [R17] 04/08/2019 Type 2 diabetes mellitus with hyperglycemia, with long-term current use of insulin (HCC) [E11.65, Z79.4] 04/08/2019 Sepsis (HCC) [A41.9] 04/07/2019 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 I am managing a portion of pt care. Some medical issues are handled by other specialists. Additional work up and treatment should be done in out pt setting by pt PCP and other out pt providers. In addition to examining and evaluating pt, I spent additional time explaining care, normal and abnormal findings, and treatment plan. All of pt questions were answered. Counseling, diet and education were provided. Case will be discussed with nursing staff when appropriate. Family will be updated if and when appropriate. Diet: DIET CARDIAC; Carb Control: 4 carb choices (60 gms)/meal Code Status: Full Code PT/OT Eval * Rene Nobles, [facility] [place] - 04/08/2019 4:25 AM EST Pharmacy Note Vancomycin Consult Don Elkins is a 68 y.o. male started on Vancomycin for possible sepsis s/p POD #2 L3-L4 lumbar decompression ; consult received from Dr. Sykes to manage therapy. Also receiving the following antibiotics: Cefepime. Patient Active Problem List Diagnosis Spinal stenosis of lumbar region with radiculopathy Lumbar spondylosis Coronary arteriosclerosis Pulmonary embolism (HCC) Diverticulosis large intestine w/o perforation or abscess w/o bleeding [facility]'s disease (HCC) Cancer (HCC) Restless leg syndrome Former smoker, stopped smoking in distant past Tremors of nervous system Thyroid disease HTN (hypertension) Hyperlipidemia Acid reflux Psoriasis Depression Sepsis (HCC) CKD (chronic kidney disease) Hyperkalemia Sinus tachycardia Metabolic acidosis, normal anion gap (NAG) Nausea and vomiting Postoperative fever Elevated bilirubin Type 2 diabetes mellitus with hyperglycemia, with long-term current use of insulin (HCC) Allergies: Patient has no known allergies. Temp max: 100F (102.1F at home) Recent Labs 04/07/19 1830 04/08/19 0324 BUN 20 18 Recent Labs 04/07/19 2333 04/08/19 0324 CREATININE 1.7* 1.77* Recent Labs 04/07/19 18304/08/19 0324 WBC 11.9* 11.4* Intake/Output Summary (Last 24 hours) at 04/08/2019 0421 Last data filed at 04/08/2019 0414 Gross per 24 hour Intake Output 200 ml Net -200 ml Culture Date Source Results 04/07/19 blood pending Ht Readings from Last 1 Encounters: 04/07/19 5' 7 (1.702 m) Wt Readings from Last 1 Encounters: 04/07/19 250 lb (113.4 kg) Body mass index is 39.16 kg/m . Estimated Creatinine Clearance: 48 mL/min (A) (based on SCr of 1.77 mg/dL (H)). Goal Trough Level: 15-20 mcg/mL Assessment/Plan: Will initiate vancomycin 1250 mg IV every 24 hours based on adjusted body weight for BMI 35-40. Trough prior to 3rd dose approx 04/10 0400. Timing of trough level will be determined based on culture results, renal function, and clinical response. Thank you for the consult. Will continue to follow. Sandra Bunn.Ph. 04/08/2019 4:25 AM * Tessie Castillo RN - 04/08/2019 2:01 AM EST Pt arrived from ED via cart. Pt was able to walk from the cart to the bed. Pt is slow to move and unsteady. Fall precautions in place. Pt had lumbar surgery on 04/05/2019 and states he started to feel sick the next day. The surgical incision is red and draining. Dry dressing in place. Pt has a productive cough. Rhonchi heard in the right. Bowel sounds are active x4. Pulses are palpable. PERRLA. Pt is tachy at 122. Perfect serve sent to Shanika COYLE regarding home medications and a request for tele. Awaiting orders. 0415 pt vomited approx 200 ml. Perfect serve sent to [facility] to request nausea meds. Zofran cannot be given until 0700 0459 medicated pt for fever and nausea. Sent respiratory cx to lab. documented in this encounter* Vicki Singletary APRN - CNP - 03/30/2019 1:00 PM EST + Hibiclens wash neck to toes, front & back on Friday04/03/2019 & Friday04/04/2019. + Last dose Coumadin 03/30/2019 / per Dr. Arcos, wood heel cementer thru [facility]. + Lovenox bridge to start 03/31/2019 as ordered thru [facility] ( [facility] ) phone # [phone]. + Molding Engineer is Dr. Austen Arcos / phone # [phone] / [facility] / Last appt 11/2018/ paper copy of appt notes on chart. + Hx of brigida disease / water jet operator Dr. Xavier Lake / [place] / phone # [phone]. / paper copy of last appt notes dated 01/06/2019 on chart. documented in this encounter Assessments Diagnosis Post-op pain- Primary Other acute postoperative pain Diagnosis Abnormality of gait and mobility due to Impaired Mobility and ADL's due to Severe Lumbar Spinal Stenosis. [facility] Re[facility] admit 04/09/19.- Primary Abnormality of gait Type 2 diabetes mellitus with hyperglycemia, with long-term current use of insulin (HCC) Tremors of nervous system Abnormal involuntary movements Thyroid disease Unspecified disorder of thyroid Spinal stenosis of lumbar region with radiculopathy Spinal stenosis, lumbar region, without neurogenic claudication Sinus tachycardia Other specified cardiac dysrhythmias Sepsis (HCC) Postoperative fever Postprocedural fever Obstructive sleep apnea syndrome Obstructive sleep apnea (adult) (pediatric) Major depressive disorder, single episode, unspecified Lumbar spondylosis Lumbosacral spondylosis without myelopathy Iron deficiency anemia Iron deficiency anemia, unspecified Hyperlipidemia Other and unspecified hyperlipidemia HTN (hypertension) Unspecified essential hypertension Diagnosis SIRS (systemic inflammatory response syndrome) ([facility])- Primary Systemic inflammatory response syndrome, unspecified Dehydration TIFFANI (acute kidney injury) (HCC) Acute kidney failure, unspecified Bronchitis Bronchitis, not specified as acute or chronic Elevated TSH Other abnormal blood chemistry Sepsis ([facility]) CKD (chronic kidney disease) Chronic kidney disease, unspecified Metabolic acidosis, normal anion gap (NAG) Acidosis Nausea and vomiting Nausea with vomiting Postoperative fever Postprocedural fever Elevated bilirubin Disorders of bilirubin excretion Type 2 diabetes mellitus with hyperglycemia, with long-term current use of insulin (HCC) Brigida's disease (HCC) Glucocorticoid deficiency Lumbar spondylosis Lumbosacral spondylosis without myelopathy Major depressive disorder, single episode, unspecified Abnormality of gait and mobility due to Impaired Mobility and ADL's due to Severe Lumbar Spinal Stenosis. [facility] admit 04/09/19. Abnormality of gait CAD (coronary artery disease) Coronary atherosclerosis of unspecified type of vessel, [place] or graft HTN (hypertension) Unspecified essential hypertension Cancer (HCC) Other malignant neoplasm without specification of site Diverticulosis large intestine w/o perforation or abscess w/o bleeding Diverticulosis of colon (without mention of hemorrhage) Depression Depressive disorder, not elsewhere classified Obstructive sleep apnea syndrome Obstructive sleep apnea (adult) (pediatric) Thyroid disease Unspecified disorder of thyroid Hyperlipidemia Other and unspecified hyperlipidemia Spinal stenosis of lumbar region with radiculopathy Spinal stenosis, lumbar region, without neurogenic claudication Pulmonary embolism (HCC) Other pulmonary embolism and infarction Diagnosis Spinal stenosis of lumbar region with radiculopathy Spinal stenosis, lumbar region, without neurogenic claudication Lumbar spondylosis Lumbosacral spondylosis without myelopathy Brigida's disease (HCC) Glucocorticoid deficiency Cancer (HCC) Other malignant neoplasm without specification of site Restless leg syndrome Restless legs syndrome (RLS) Former smoker, stopped smoking in distant past Personal history of tobacco use, presenting hazards to health Tremors of nervous system Abnormal involuntary movements Thyroid disease Unspecified disorder of thyroid Psoriasis Other psoriasis Hospital Course * Ellie Juárez DO - 04/13/2019 7:58 AM EST Subjective: The patient complains of severe acute on chronic low back pain as well as bilateral upper and lower extremity weakness partially relieved by PT, OT, Duragesic, Percocet and exacerbated by prolonged sitting or ambulation. DISCHARGE SUMMARY Hospital Course: The patient was admitted to the Rehabilitation Unit to address ADL and mobility deficits. The patient was enrolled in acute PT, OT program. Weekly team meetings were held to assess functional progress toward their goals. The patient's medical issues were addressed. The patient progressed in the rehab program and is now ready for discharge. Refer to FIM scores summary report for detailed functional status. Greater than 35 minutes was spent on coordinating patients discharge including follow-up care, medications and patient/family education. 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 ROS x10: The patient also complains of severely impaired mobility and activities of daily living. Otherwise no new problems with vision, hearing, nose, mouth, throat, dermal, cardiovascular, GI, , pulmonary, musculoskeletal, psychiatric or neurological. See Rehab H&P on Rehab chart dated . Vital signs: BP (!) 164/89 Pulse 82 Temp 98 F (36.7 C) (Oral) Resp 17 Ht 5' 7 (1.702 m) Wt 250 lb 5 oz (113.5 kg) SpO2 96% BMI 39.20 kg/m I/O: PO/Intake: fair PO intake, 4 carb per meal diet Bowel/Bladder: continent, no problems noted. General: Patient is well developed, adequately nourished, non-obese and well kempt. HEENT: PERRLA, hearing intact to loud voice, external inspection of ear and nose benign. Inspection of lips, tongue and gums benign Musculoskeletal: No significant change in strength or tone. All joints stable. Inspection and palpation of digits and nails show no clubbing, cyanosis or inflammatory conditions. Neuro/Psychiatric: Affect: flat but pleasant. Alert and oriented to person, place and situation. No significant change in deep tendon reflexes or Sensation-poor judgment reasoning and insight tangential. Lungs: CTA-B. Respiration effort is normal at rest. Heart: S1 = S2, RRR. No loud murmurs. Abdomen: Soft, non-tender, no enlargement of liver or spleen. Extremities: No significant lower extremity edema or tenderness. Skin: Intact to general survey, lumbar spine incision with scant serosanguineous drainage Rehabilitation: Physical therapy: FIMS: Bed Mobility: Scooting: Modified independent Transfers: Sit to Stand: Independent Stand to sit: Independent Bed to Chair: Modified independent, Ambulation 1 Surface: level tile, carpet, ramp Device: No Device Assistance: Modified Independent, Independent Quality of Gait: normalized. Pt ambulates pushing WC to simulate shopping. Distance: 300' x 1 Comments: Reports low back fatigue, Stairs # Steps : 12 Stairs Height: 6 Rails: Left ascending Device: No Device Assistance: Modified independent Comment: Side step up x 4 steps, reciprocal 8 steps FIMS: Bed, Chair, Wheel Chair: 7 - Patient independently transfers Walk: 7- Complete Alvo Walks at least 150 feet Independently with no assistive device Distance Walked: 300' Stairs: 6 - Modified Alvo Safely goes up and down at least one flight of stairs but requries a side support, handrail, cane, or portable supports, or the activity takes more than a reasonableamount of times, or there are safety considerations, , Assessment: Patient has met goals and shows a good understanding of HEP Occupational therapy: FIMS: Eatin - Patient feeds self Groomin - Patient independent with all grooming tasks Bathin - Able to bathe all 10 areas with device Dressing-Upper: 5 - Requires setup/supervision/cues and/or requires assist with presthesis/brace only Dressing-Lower: 5 - Requires setup/supervision/cues and/or staff applies TEDS/prosthesis/brace only Toiletin - Requires setup/supervision/cues Toilet Transfer: 6 - Independent with device (grab bar/walker/slide bar) Shower Transfer: 6 - Modified independence, , Assessment: Pt is a 68 y.o. male with above mentioneddeficits impairing ability to safely compelte ADL's. Pt may benefit from OT services to address deficits and return to safest and highest level of functioning. Speech therapy: FIMS: Comprehension: 5 - Patient understands basic needs (hungry/hot/pain) Expression: 5 - Expresses basic ideas/needs only (hungry/hot/pain) Social Interaction: 7 - Patient has appropriate behavior/relations 100% of the time Problem Solvin - Patient able to solve simple/routine tasks Memory: 5 - Patient requires prompting with stress/unfamiliar situations Lab/X-ray studies reviewed, analyzed and discussed with patient and staff: Recent Results (from the past 24 hour(s)) POCT Glucose Collection Time: 04/12/19 11:54 AM Result Value Ref Range POC Glucose 194 (H) 60 - 115 mg/dl Performed on ACCU-CHEK POCT Glucose Collection Time: 04/12/19 4:21 PM Result Value Ref Range POC Glucose 241 (H) 60 - 115 mg/dl Performed on ACCU-CHEK POCT Glucose Collection Time: 04/12/19 9:04 PM Result Value Ref Range POC Glucose 154 (H) 60 - 115 mg/dl Performed on ACCU-CHEK PROTIME-INR Collection Time: 04/13/19 5:36 AM Result Value Ref Range Protime 26.5 (H) 12.3 - 14.9 sec INR 2.3 POCT Glucose Collection Time: 04/13/19 6:15 AM Result Value Ref Range POC Glucose 223 (H) 60 - 115 mg/dl Performed on ACCU-CHEK Mri Lumbar Spine 04/08/2019 1. Postcontrast enhancement involving the laminectomy site and the adjacent paraspinal muscles and subcutaneous tissues. No drainable fluid collection or abscess. Findings could reflect postoperativechange or early infection, correlation with inflammatory/infectious markers is recommended. 2. Multilevel degenerative disc disease and facet osteoarthropathy T12-S1, with severe thecal sac stenosis at L3-L4 just superior to the laminectomy site, crowding and compression of cauda equina nerve rootsand abutment/impingement exiting bilateral L3 spinal nerve roots. 3. Superimposed central and bilateral paracentral disc bulge with some extension into the lateral recess regions at L5-S1. Mild thecal sac stenosis. Abutment of descending bilateral S1 spinal nerve roots. 4. Abutment/impingement exiting bilateral L4 spinal nerve roots at L4-L5. No alejandro spinal canal stenosis at this level. 5. Heterogeneity of bone marrow signal intensity This may simply represent red marrow conversion, however, the differential diagnosis also includes more concerning processes such as, but not limited to, hemosiderosis, mastocytosis, multiple myeloma, myelofibrosis, sarcoidosis, hematopoietic hyperplasia, leukemia, lymphoma or metastatic disease. Fl 04/06/2019 Patient : 1950 Age: 68 years Gender: Male Order Date: 04/05/2019 11:51 AM. Exam: FL LESS THAN 1 HOUR Number of Views: 2 Indication: Needle placement in operating room Comparison: None Findings: Surgical enhancements project overlying the L5 vertebral body and the L3-L4 interver tebral disc space. One image is nondiagnostic but with a surgical instruments superficial to the posterior elements at L4-L5. Impression: 1. Fluoroscopic time 70.8 seconds. 2. Surgical instrumentation placement as described above. Xr Chest 04/08/2019 Patient : 1950 Age: 68 years Gender: Male Order Date: 04/07/2019 6:30 PM. Exam: XR CHEST PORTABLE Number of Views: 1 Indication: Fever Comparison: None. Findings: Cardiomediastinal silhouette is within normal limits. Lungs are clear without evidence of infiltrate/pneumonia, pneumothorax or pleural effusion Impression: No radiographic evidence of acute cardiopulmonary disease Previous extensive, complex labs, notes and diagnostics reviewed and analyzed. ALLERGIES: Allergies as of 04/09/2019 (No Known Allergies) (please also verify by checking JUL) Yesterday I evaluated this patient for periodic reassessment of medical and functional status. The patient was discussed in detail at the treatment team meeting focusing on current medical issues, progress in therapies, social issues, psychological issues, barriers to progress and strategies to address these barriers, and discharge planning. See the hand written addendum to rehab progress note. The patient continues to be high risk for future disability and their medical and rehabilitation prognosis continue to be good and therefore, we will continue the patient's rehabilitation course as planned. The patient's tentative discharge date was set. Patient and family education was discussed. The patient was made aware of the team discussion regarding their progress. Discharge plans were discussed along with barriers to progress and strategies to address these barriers, patient encouraged tocontinue to discuss discharge plans with case management social worker. Complex Physical Medicine & Rehab Issues Assess & Plan: 1. Severe abnormality of gait and mobility and impaired self-care and ADL's secondary to progressive severe spinal canal stenosis. Functional and medical status have improved nicely status post [facility]re[facility] therefore patient is scheduled for discharge today 04/13/2019 home with hiswife and outpatient PT. 2. Bowel opiate related constipation and Bladder dysfunction: frequent toileting, ambulate to bathroom with assistance, check post void residuals. Check for C.difficile x1 if >2 loose stools in 24hours, continue bowel & bladder program. Monitor bowel and bladder function. Lactinex 2 PO every AC. MOM prn, Brown Bomb prn, Glycerin suppository prn, enema prn. 3. Severe postop low back pain as well as generalized OA pain: reassess pain every shift and prior to and after each therapy session, give prn Tylenol and Percocet and low-dose Duragesic, modalities prn in therapy, Lidoderm, K-pad prn. I reviewed her [place] prescription monitoring service data sheetsin hopes of eliminating polypharmacy and weaning to the lowest effective dose of pain medications and eliminating the concomitant use of benzodiazepines. I see no medications of concern. I see no habits of combining sedatives and narcotics. 4. Skin healing lumbar spine incision and breakdown risk: continue pressure relief program. Daily skin exams and reports from nursing. Add co-Q10 5. Severe fatigue due to nutritional and hydration deficiency: Add vitamin B12 vitamin D and CoQ10 continue to monitor I&O s, calorie counts prn, dietary consult prn. 6. Acute episodic insomnia with situational adjustment disorder: prn Ambien, monitor for day time sedation. 7. Falls risk elevated: patient to use call light to get nursing assistance to get up, bed and chair alarm. 8. Elevated DVT risk: progressive activities in PT, continue prophylaxis DARLYN denise, elevation and patient is on prophylactic Lovenox transition to therapeutic Coumadin this is been okayed by his neurosurgeon Dr. Mejia. 9. Complex discharge planning: SP Weekly team meeting every Friday to assess progress towards goals, discuss and address social, psychological and medical comorbidities and to address difficulties they may be having progressing in therapy. Patient and family education is in progress. The patient isto follow-up with their family physician after discharge. Complex Active General Medical Issues that complicated care Assess & Plan: 1. Spinal stenosis of lumbar region with radiculopathy, Lumbar spondylosis with recent decompression of L3-L4 under the care of Dr. Reid Mejia at [facility] 04/05/2019. Patient is to transition slowly back onto his blood thinners he has a history of PE in 2018 and was on Coumadin 2. Tremors of nervous system affecting cognitive deficits and some rigidity- monitor for dementia and Parkinson's disease, monitor for nocturnal hypoxemia, have speech and language pathology assess his memory monitor for sleep apnea and nocturnal hypoxemia. 3. Thyroid disease-titrate Synthroid 4. HTN (hypertension), Hyperlipidemia, Sinus tachycardia, possible history of hypercoagulable stateversus idiopathic PE 2018-vital signs to shift, dose and titrate cardiac medications to include Zestril, Lopressor, Zocor, Coumadin, using Lovenox at low-dose until he becomes therapeutic on his Coumadin because of his postop status and blood thinners. Consult hospitalist for back-up medical recheck BMP CBC 5. Sepsis, Postoperative fever-closely monitor for fever, check incision dose antibiotics 6. Type 2 diabetes mellitus with hyperglycemia, with long-term current use of insulin-resume diabetic ed dietary add transition back to his home dose of insulin and sliding scale decrease carbohydrates in the diet to 4 carbs per meal. 7. Major depressive disorder, single episode, with severe anxiety and cognitive deficits-emotional support to be given daily add rec therapy rehabilitation psychology vitamin B12 and support group 8. Iron deficiency anemia-titrate iron and B12 9. Bronchitis, obstructive sleep apnea syndrome-patient is to wear CPAP from home if he is noncompliant we will elevate the head of the bed and add cannula O2 titrate Mucinex add Acapella and incentive spirometry Ellie Juárez D.O., PM&R Attending [phone] [facility] [employer] [place] documented in this encounter* Gerardo Fitzpatrick MD - 04/09/2019 12:01 PM EST Hospital Medicine Discharge Summary Don Elkins : 1950 Admit date: 04/07/2019 Discharge date: 04/09/2019 Admitting Physician: Gerardo Fitzpatrick MD Primary Care Physician: Sal Sabillon MD Discharge Diagnoses: Active Problems: Lumbar spondylosis Brigida's disease (HCC) Sepsis (HCC) CKD (chronic kidney disease) Metabolic acidosis, normal anion gap (NAG) Nausea and vomiting Postoperative fever Elevated bilirubin Type 2 diabetes mellitus with hyperglycemia, with long-term current use of insulin (HCC) Major depressive disorder, single episode, unspecified Resolved Problems: * No resolved hospital problems. * Chief Complaint Patient presents with Post-op Problem Had surgery friday on low back. Pt has intermittent fever, vomiting and redness around the incision Hospital Course: Don Elkins is a 68 y.o. male that was admitted and treated at [facility] for the following medical issues: Active Problems: Lumbar spondylosis Brigida's disease (HCC) Sepsis (HCC) CKD (chronic kidney disease) Metabolic acidosis, normal anion gap (NAG) Nausea and vomiting Postoperative fever Elevated bilirubin Type 2 diabetes mellitus with hyperglycemia, with long-term current use of insulin (HCC) Major depressive disorder, single episode, unspecified Resolved Problems: * No resolved hospital problems. * Patient after a recent surgery presented with post op fevers. Evaluated by NSGY who performed the procedure who recommended stopping Abx as the wound looked good and not infected. Patient is very weak and NSGY recommended rehab eval who recommended inpatient rehab. Pt was discharge in a stable condition. Exam on discharge: BP (!) 126/44 Pulse 92 Temp 98.2 F (36.8 C) (Oral) Resp 18 Ht 5' 7 (1.702 m) Wt 250 lb 3.6 oz (113.5 kg) SpO2 98% BMI 39.19 kg/m General appearance: No apparent distress, appears stated age and cooperative. HEENT: Conjunctivae/corneas clear. Neck: Trachea midline. Respiratory: Normal respiratory effort. Clear to auscultation Cardiovascular: Tachycardic Abdomen: Soft, non-tender, non-distended with normal bowel sounds. Musculoskeletal: No clubbing, cyanosis or edema bilaterally Neuro: Non Focal. Capillary Refill: Brisk,< 3 seconds Peripheral Pulses: +2 palpable, equal bilaterally Patient was seen by the following consultants while admitted to [facility]: Consults: IP CONSULT TO NEUROSURGERY IP CONSULT TO PHARMACY IP CONSULT TO CARDIAC REHAB IP CONSULT TO REHAB/TCU ADMISSION COORDINATOR Significant Diagnostic Studies: BMP Please refer to chart if no studies are shown here Mri Lumbar Spine W Wo Contrast Result Date: 04/08/2019 Patient : 1950 Age: 68 years Gender: Male Order Date: 04/07/2019 6:30 PM. Exam: MRI LUMBAR SPINE W WO CONTRAST Number of Views: 291 Indication: 2 days status post laminectomy with fever and erythema. Comparison: None Findings: Normal sagittal alignment thoracic/lumbar spine. Heterogeneous bone marrow signal intensity bilaterally. No STIR hyperintensity to suggest an acute fracture or ligamentous injury. Previous laminectomy at L3-L4 and L4-L5. Conus medullaris terminates at approximately T12-L1 motion segment level. Aorta grossly unremarkable. Other paraspinal organs notevaluated. T12-L1: Mild bilateral facet osteoarthropathy. No evidence of posterior disc contour abno rmality, spinal canal stenosis, neural foraminal narrowing or spinal nerve root abutment/impingement.. L1-L2: Mild to moderate bilateral facet osteoarthropathy. Circumferential disc bulge with mild bilateral neural foraminal narrowing. No evidence of spinal canal stenosis or spinal nerve abutment/impingement. L2-L3: Moderate circumferential disc bulge, moderate bilateral facet osteoarthropathy, moderate left neural foraminal narrowing. Moderately severe right neural foraminal narrowing. Possible abutment of the exiting right L2 spinal nerve root. No alejandro spinal canal stenosis. L3-L4: Large circumferential disc bulge, severe bilateral facet osteoarthropathy, severe thecal sac stenosis measuring 0.65 cm superior to the laminectomy site with underlying crowding/compression of cauda equina nerve roots. Moderately severe left and right neural foraminal narrowing with abutment/impingement exiting bilateral L3 spinal nerve roots. L4- L5: Decompressive laminectomy noted. Severe bilateral facet osteoarthropathy. Large circumferential disc bulge. Severe bilateral neural foraminal narrowing. Abutment/impingement Bilateral L4 spinal nerve roots. L5-S1: Moderate circumferential disc bulge witha superimposed central disc protrusion also involving the bilateral paracentral and lateral recess regions. Abutment of descending bilateral S1 spinal nerve roots. Moderate left and right neural donald inal narrowing. Moderate bilateral facet osteoarthropathy. Mild thecal sac stenosis measuring 0.93 cm anterior posterior dimension central spinal canal. Postoperative changes are noted. Postcontrast imaging demonstrates enhancement at the laminectomy site but without a drainable fluid collection orabscess at this time. There is enhancement of the paraspinal muscles also noted at the laminectomy site. Enhancement of the superficial subcutaneous fatty tissues also identified. 1. Postcontrast enhancement involving the laminectomy site and the adjacent paraspinal muscles and subcutaneous tissues. No drainable fluid collection or abscess. Findings could reflect postoperativechange or early infection, correlation with inflammatory/infectious markers is recommended. 2. Multilevel degenerative disc disease and facet osteoarthropathy T12-S1, with severe thecal sac stenosis at L3-L4 just superior to the laminectomy site, crowding and compression of cauda equina nerve rootsand abutment/impingement exiting bilateral L3 spinal nerve roots. 3. Superimposed central and bilateral paracentral disc bulge with some extension into the lateral recess regions at L5-S1. Mild thecal sac stenosis. Abutment of descending bilateral S1 spinal nerve roots. 4. Abutment/impingement exiting bilateral L4 spinal nerve roots at L4-L5. No alejandro spinal canal stenosis at this level. 5. Heterogeneity of bone marrow signal intensity This may simply represent red marrow conversion, however, the differential diagnosis also includes more concerning processes such as, but not limited to, hemosiderosis, mastocytosis, multiple myeloma, myelofibrosis, sarcoidosis, hematopoietic hyperplasia, leukemia, lymphoma or metastatic disease. Xr Chest Portable Result Date: 04/08/2019 Patient : 1950 Age: 68 years Gender: Male Order Date: 04/07/2019 6:30 PM. Exam: XR CHEST PORTABLE Number of Views: 1 Indication: Fever Comparison: None. Findings: Cardiomediastinal silhouette is within normal limits. Lungs are clear without evidence of infiltrate/pneumonia, pneumothorax or pleural effusion Impression: No radiographic evidence of acute cardiopulmonary disease Discharge Medications: Don Elkins Home Medication Instructions MARILUZ:[id number] Printed on:04/09/19 1201 Medication Information cephALEXin (KEFLEX) 500 MG capsule Take 1 capsule by mouth 3 times daily for 7 days citalopram (CELEXA) 20 MG tablet Take 20 mg by mouth daily Coenzyme Q10 (COQ-10) 100 MG CAPS Take by mouth every evening CPAP Machine MISC by Does not apply route fludrocortisone (FLORINEF) 0.1 MG tablet Take 0.1 mg by mouth daily hydrocortisone (CORTEF) 20 MG tablet Take 20 mg by mouth 2 times daily insulin aspart (NOVOLOG) 100 UNIT/ML injection vial Inject into the skin Indications: sliding scale insulin glargine (BASAGLAR KWIKPEN) 100 UNIT/ML injection pen 20 Units nightly levothyroxine (SYNTHROID) 150 MCG tablet Take 150 mcg by mouth Daily lisinopril (PRINIVIL;ZESTRIL) 10 MG tablet Take 10 mg by mouth daily metoprolol tartrate (LOPRESSOR) 25 MG tablet Take 75 mg by mouth 2 times daily Multiple Vitamins-Minerals (THERAPEUTIC MULTIVITAMIN-MINERALS) tablet Take 1 tablet by mouth daily Bluebell-3 Fatty Acids (FISH OIL) 600 MG CAPS Take by mouth daily oxyCODONE-acetaminophen (PERCOCET) 5-325 MG per tablet Take 1 tablet by mouth every 6 hours as needed for Pain for up to 14 days. Intended supply: 7 days.Take lowest dose possible to manage pain rOPINIRole (REQUIP) 0.5 MG tablet Take 8 mg by mouth every evening simvastatin (ZOCOR) 20 MG tablet Take 20 mg by mouth nightly warfarin (COUMADIN) 4 MG tablet Take 5 mg by mouth daily Indications: P-YH-Zyg-Sun warfarin (COUMADIN) 7.5 MG tablet Take 7.5 mg by mouth daily Indications: M-W-F Disposition: If discharged to Home, Any [facility] needs that were indicated and/or required as been addressed and set up by Social Work. Condition at discharge: Pt was medically stable at the time of discharge. Activity: activity as tolerated Total time taken for discharging this patient: 40 minutes. Greater than 70% of time was spent focused exclusively on this patient. Time was taken to review chart, discuss plans with consultants, reconciling medications, discussing plan answering questions with patient. Signed: Gerardo Fitzpatrick 04/09/2019, 12:01 PM Don Elkins, documented in this encounter Reason for Referral Specialty Diagnoses / Procedures Referred By Contac t Referred To Contact Radiology Diagnoses Carotid stenosis, bilateral Stroke, lacunar (CMS/HCC) Cerebral artery occlusion with cerebral infarction (CMS/HCC) Procedures Vascular US carotid artery duplex bilateral Oscar Arvizu MD [address] [place] [address] [facility] [address] [place] [address] Referral ID Status Reason Start Date Expiration Date Visits Requested Visits Authorized [id number] Authorized Perform Procedure 06/24/2023 12/21/2023 1 1 Chief Complaint and Reason for Visit Chief Complaint RENAL 6 month follow up Reason for Visit [facility] disease CKD (chronic kidney disease) stage 3, GFR 30-59 ml/min [id number] Hypomagnesemia Secondary 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 Chief Complaint RENAL 6 MONTH F/U Reason for Visit [facility] disease CKD (chronic kidney disease) stage 3, GFR 30-59 ml/min [id number] Hypomagnesemia Secondary 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 Chief Complaint RENAL 6 MONTH F/U Wellness Reason for Visit [facility] disease CKD (chronic kidney disease) stage 3, GFR 30-59 ml/min [id number] Hypomagnesemia Secondary 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 Screening PSA (prostate specific antigen) Additional Source Comments (unrecognized sect ion and content) No Status Records FoundNo Status Records FoundNo Status Records FoundNo Status Records FoundNo Status Records FoundNo Status Records FoundNo Status Records FoundNo Status Records FoundNo Status Records FoundNo Status Records FoundNo Status Records Found INFORMATION SOURCE (unrecogn ized section and content) DATE CREATED AUTHOR 04/25/2018 [facility] DATE CREATED AUTHOR AUTHOR'S ORGANIZ ATION 05/02/2018 [facility] DATE CREATED AUTHOR AUTHOR'S ORGANIZ ATION 2018 [facility] DATE CREATED AUTHOR AUTHOR'S ORGANIZ ATION 04/13/2019 [facility] DATE CREATED AUTHOR AUTHOR'S ORGANIZ ATION 02/13/2021 [facility] DATE CREATED AUTHOR AUTHOR'S ORGANIZ ATION 05/05/2021 [facility] DATE CREATED AUTHOR AUTHOR'S ORGANIZ ATION 05/21/[address] [facility] DATE CREATED AUTHOR AUTHOR'S ORGANIZ ATION 07/10/2021 [facility] DATE CREATED AUTHOR AUTHOR'S ORGANIZ ATION 06/17/2022 [facility] DATE CREATED AUTHOR AUTHOR'S ORGANIZ ATION 12/25/2023 [facility] DATE CREATED AUTHOR AUTHOR'S ORGANIZ ATION 01/07/2024 [facility] Reason for Visit (unrecogniz ed section and content) Status Reason Specialty Diagnoses / Procedures Referre d By Contact Referred To Contact Diagnoses SPINAL STENOSIS,, RADICULOPATHY, SPONDYLOSIS Procedures AK LAMNOTMY W/DCMPRSN NRV EACH ADDL CRVCL/LMBR L 3, L 4 LUMBAR DECOMPRESSION, 1 HOUR/ 1 C-ARM Reid Mejia MD [address] [place] [address] [facility] Reason Comments Post-op Problem Had surgery friday o n low back. Pt has intermittent fever, vomiting and redness around the incision Status Reason Specialty Diagnoses / Procedures Referred By Contact Referred To Contact Diagnoses Sepsis (H[place]) [place] [address] [facility] [address] [place] [address] [facility] Reason Comments Parkinson's Disease Care Teams (unrecognized sec tion and content) Grocery Worker Relationship Specialty Start Date End Date Sal Sabillon MD [address] [place] [phone] PCP - General Family Medicine 10/08/22 Grocery Worker Relationship Specialty Start Date End Date Sal Sabillon MD [address] [place] [phone] PCP - General Family Medicine 10/08/22 Team Status: Active Member Role Status Dates Sal Sabillon MD Primary Care Provider Active Team Status: Active Member Role Status Dates Sal Sabillon MD Primary Care Provide r, Attending Provider Active Start: August 05, 2023 Team Status: Inactive Member Role Status Dates Sal Sabillon MD Primary Care Provider Active Start: August 14, 2023 End: August 14, 2023 Frederick Dalton MD Attending Provider Active Start : August 14, 2023 End: August 14, 2023 Team Status: Active Member Role Status Dates Sal Sabillon MD Primary Care Provider Active Start: January 22, 2024 Frederick Dalton MD Attending Provider Active Start : January 22, 2024 Team Status: Inactive Member Role Status Deepa Sabillon MD Primary Care Provider Active Start: January 29, 2024 End: January 29, 2024 Frederick Dalton MD Attending Provider Active Start : January 29, 2024 End: January 29, 2024 Team Status: Inactive Member Role Status Dates Sal Sabillon MD Primary Care Provide r, Attending Provider Active Start: March 16, 2024 End: March 16, 2024 Goals (unrecognized section and content) Goals may be documented in a n alternate section FOR RECORDS PERTAINING TO PATIENTS WHO ARE OR HAVE BEEN ENROLLED IN A CHEMICAL DEPENDENCY/SUBSTANCEABUSE PROGRAM, SOME INFORMATION MAY BE OMITTED. This clinical summary was aggregated from multiple sources. Caution should be exercised in using it in the provision of clinical care. This summary normalizes information from multiple sources, and as a consequence, information in this document may materially change the coding, format and clinical context of patient data. In addition, data may be omitted in some cases. CLINICAL DECISIONS SHOULD BE BASED ON THE PRIMARY CLINICAL RECORDS. [employer] provides no warranty or guarantee of the accuracy or completeness of information in this document.
[2024-03-17 12:20] LABS: Prostate Specific Antigen Scrn <0.13 ng/mL (<=4.00)
== END 2024-03-17 09:35 | disposition home or self-care (01) ==
LOC: LAB 09:37
PROVIDERS: PCP Family Medicine; Visit Provider Family Medicine
DX: Z12.5 Encounter for screening for malignant neoplasm of prostate (principal)
CPT/HCPCS: 36415; G0103

== ENCOUNTER 2024-04-05 20:55 | Outpatient (OUT) | payer OTHER, SELFPAY ==
--- OUTSIDE RECORDS SUMMARY | 2024-04-05 21:00 | XMS_ITS | CCD ---
Author Organization [facility] Care Team Providers Care Medical Office Scheduler Name Role Phone Kenneth Cheng Unavailable Unavailable Kirnus, Levi Unavailable Unavailable UNKNOWN, PCP Unavailable Unavailable SY, JC VASUDEO Unavailable Unavailable Sy, Jc Vasudeo Attending Unavailable Sal Sabillon Primary Care Provider SALLIE, REID H. Referring Unavailable SAL SABILLON Primary Care Unavailable SALLIE, REID H. Admitting Unavailable SALLIE, REID H. Attending Unavailable SAL SABILLON Primary Care Unavailable SALLIE, REID H. Attending Unavailable SALLIE, REID H. Referring Unavailable SAL SABILLON Primary Care Unavailable SAL SABILLON Primary Care Unavailable CHATHA, GERARDO Admitting Unavailable CHATHA, GERARDO Attending Unavailable SALLIE, REID H. Consulting Unavailable ANDREW RWIGHT Consulting Unavailable SCAARONIN ELLIE Admitting Unavailable SCAARONIN ELLIE Attending Unavailable SAL SABILLON Primary Care Unavailable CHATHA, GERARDO Consulting Unavailable MARJ DEMARCO Admitting Unavailable MARJ DEMARCO Attending Unavailable SAL SABILLON Primary Care Unavailable SAL SABILLON Referring Unavailable Geovanni, Frederick Unavailable EGOVANNI, FREDERICK Admitting Unavailable GEOVANNI, FREDERICK Attending Unavailable [...] Unavailable Sal Sabillon MD Primary Care Provider [phone] OSCAR ARVIZU Attending Unavailable OLGA VOGEL Attending [...] 2018 1:09pm take 1 capsule [facility]-four [facility] Coenzyme Q-10 100 [...] 14, 2023 1:37pm take 1 tablet by [facility] four times weekly Fludrocortisone Acetate 0.1 MG 1 tablet Orally four times a Week Active take 1 tablet by [facility] once daily fludrocortisone (FLORINEF) 0.1 MG tablet [...] hydrochloride 10 mg oral tablet (12 sources) P-xotxcc-G-aspartate Receptor Antagonist Start: 08-14-2023 take 10 mg [...] TAB PO Daily August 14, 2023 12:00am [place] 3 Fish Oil (4 sources) [place] 3 Fish Oil one tablet daily Active [place]-3 Fatty Acids (FISH OIL) 600 MG CAPS (3 sources) [place]-3 Fatty Ac ids (FISH OIL) 600 MG CAPS Take by mouth daily 0 Active pantoprazole 40 mg delayed release oral tablet (2 sources) Proton Pump Inhibitor Star t: 03-20 take 40 mg by mouth once daily before breakfast 40 mg, Oral, DAILY BEFORE BREAKFAST, First dose (after last modification) on Fri04/10/19 at 0700 Do not crush or break. 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] Onset: [...] left hand] Chronic Other 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; Translations: [[facility] (current) use of insulin] Onset: 8 Episodic Other aftercare (1 source) [facility] (current) use of aspirin; Translations: [[facility] (current) use of aspirin] Onset: 8 Episodic Other aftercare (1 source) 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; Translations: [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] Onset: [...] 08-14-2023 Chronic Other endocrine disorders (9 sources) Brigida's disease; 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] Onset: 9 [...] distribution width (RBC) [Ratio] 12.0 % 11.0-15.0 [facility] Estimated glomerular filtrat ion rate (GFR) non- Americanon 01-22-2024 GFR/1.73 sq M.predicted among non-blacks MDRD (S/P/Bld) [Vol rate/Area] 29 mL/min/{1.73_m2} Low >=60 [facility] Hematocrit Auto (Bld) [Volum e fraction]on 01-22-2024 Hematocrit (Bld) [Volume fraction] 44.0 % 42.0-54.0 [facility] Hemoglobin [Mass/volume] in Bloodon 01-22-2024 Hemoglobin (Bld) [Mass/Vol] 15.0 g/dL 14.0-18.0 [facility] Laboratory - Chemistry and C hemistry - challengeon 01-22-2024 Albumin [Mass/Vol] 3.6 g/dL 3.4-5.0 [facility] Calcium [Mass/Vol] 8.9 mg/dL 8.5-10.1 [facility] Chloride [Moles/Vol] 99 mmol/L 98-107 [facility] CO2 [Moles/Vol] 28.7 mmol/L 21.0-32.0 [facility] Creatinine [Mass/Vol] 2.24 mg/dL High 0.70-1.30 [facility] GFR/1.73 sq M.predicted MDRD (S/P/Bld) [Vol rate/Area] 35 mL/min/{1.73_m2} Low >=60 [facility] Glucose [Mass/Vol] 303 mg/dL High 74-106 [facility] Magnesium [Mass/Vol] 1.9 mg/dL 1.8-2.4 [facility] Potassium [Moles/Vol] 4.9 mmol/L 3.5-5.1 [facility] Sodium [Moles/Vol] 137 mmol/L 136-145 [facility] Urate [Mass/Vol] 7.7 mg/dL High 3.5-7.2 [facility] Urea nitrogen [Mass/Vol] 33.0 mg/dL High 7.0-18.0 [facility] Urea nitrogen/Creatini ne [Mass ratio] 14.7 mg/mg [facility] Bilirubin Ql (U) Negative NEGATIVE [facility] Glucose (U) [Mass/Vol] mg/dL Abnormal NEGATIVE [facility] Ketones Ql (U) Negative NEGATIVE [facility] pH (U) 5.5 [pH] 5.0-9.0 [facility] Specific gravity (U) [Rel density] 1.015 1.005-1.025 [facility] Urobilinogen Qn (U) 0.2 {Yared'U}/dL 0.2-1.0 [facility] Laboratory - Specimen inform ationon 01-22-2024 Appearance (U) CLEAR CLEAR [facility] Color (U) LT. YELLOW YELLOW [facility] Laboratory - Urinalysison Leukocyte esterase Test strip Ql (U) Negative NEGATIVE [facility] Mucus Ql (Urine sed) TRACE Abnormal NONE SEEN [facility] Nitrite Ql (U) Negative NEGATIVE [facility] Protein (U) [Mass/Vol] 11.7 mg/dL <=11.9 [facility] Protein Ql (U) Negative NEG/TRACE [facility] Leukocytes [#/volume] correc darlyn for nucleated erythrocytes in Blood by Automated counon 01-22-2024 WBC corrected for nucl RBC Auto (Bld) [#/Vol] 9.7 10 3/uL 4.0-11.0 [facility] MCH Auto (RBC) [Entitic mass ]on 01-22-2024 MCH (RBC) [Entitic mass] 31.5 pg 25.9-34.0 [facility] MCHC Auto (RBC) [Mass/Vol]on 01-22-2024 MCHC (RBC) [Mass/Vol] 34.1 g/dL 29.9-35.2 [facility] MCV Auto (RBC) [Entitic vol] on 01-22-2024 MCV (RBC) [Entitic vol] 92.4 fL 80.0-94.0 [facility] No Panel Informationon 01-21 25-Hydroxy Vitamin D Total 68.1 ng/mL [facility] Comment on above: <20 ng/mL Vit D defi cient20-<30 ng/mL Vit D ofbqlkcpfddw40-893 ng/mL Vit D sufficient>100 ng/mL Potential Toxicity Parathyroid Hormone (Intact) 61 pg/mL 15-65 [facility] Comment on above: Performed at: [address] [id number] Director: Prakash Barbour PhD, Phone: [phone] Phosphorus Level 3.8 mg/dL 2.6-4.7 [facility] Urine Bacteria NONE SEEN #/HPF NONE SEEN [facility] Urine Occult Blood Negative NEGATIVE [facility] Urine Random Creatinine 81.08 mg/dL 20.00-300.00 [facility] Urine RBC NONE SEEN #/HPF 0-2 [facility] Urine Squamous Epithelial Cells FEW #/LPF Abnormal NONE/RARE [facility] Urine WBC NONE SEEN #/HPF NONE SEEN [facility] Platelet mean volume Auto (B ld) [Entitic vol]on 01-22-2024 Platelet mean volume (Bld) [Entitic vol] 12.7 fL 9.5-13.5 [facility] Platelets Auto (Bld) [#/Vol] on 01-22-2024 Platelets (Bld) [#/Vol] 230 10 3/uL 150-450 [facility] RBC Auto (Bld) [#/Vol]on RBC (Bld) [#/Vol] 4.76 10 6/uL 4.70-6.10 [facility] Serum or plasma anion gap de terminationon 01-22-2024 Anion gap [Moles/Vol] 14.2 mmol/L [facility] Urine protein/creatinine rat ioon 01-22-2024 Protein/Creatinin e (U) [Ratio] 0.14 [facility] 37on 01-06-2024 37 *We will increase yo ur metoprolol to 100mg twice daily. You can take 2 tablets of your current 50mg tablets twice daily until this runs out then start the new prescription with 1 tablet daily. *No objections with your upcoming dental procedure. Normal [facility] Office Visiton 01-06-2024 Follow-up visit [id number] Don Elkins 1950 M Date Provider Department Center 01/06/2024 BECCA RODRIGUEZ CARD [facility] Family History Problem Relation Age of Onset Diabetes Mother Coronary artery disease Brother Other Brother Heart failure Brother Family Status - Relation Status Age at Mother Brother Level of Service:44176 ME OFFICE/OUTPATIENT ESTABLISHED MOD MDM 30 MIN Reason for Visit and Comments: Hypertension [472472] Coronary Artery Disease [187] Normal [facility] Automated epithelial cells c ount in urine sediment (number/area)on 08-05-2023 Epithelial cells Auto (Urine sed) [#/Area] FEW #/LPF NONE/RARE [facility] Automated leukocytes count i n urine sediment (number/area)on 08-05-2023 WBC Auto (Urine sed) [#/Area] NONE SEEN #/HPF 0-2 [facility] Automated urine specific gra vity by refractometryon 08-05-2023 Specific gravity Refractometry automated (U) [Rel density] 1.025 1.005-1.025 [facility] Bilirubin Auto test strip (U ) [Mass/Vol]on 08-05-2023 Bilirubin (U) [Mass/Vol] Negative NEGATIVE [facility] Cholesterol in LDL Calc [Mas s/Vol]on 08-05-2023 Cholesterol in LDL [Mass/Vol] 33.0 mg/dL [facility] Comment on above: <100 mg/dl [id number] 0-129 mg/dl NEAR OR ABOVE [id number] mg/dl BORDERLINE [id number] mg/dl HIGH>190 mg/dl VERY HIGH Cholesterol in VLDL Calc [Ma ss/Vol]on 08-05-2023 Cholesterol in VLDL [Mass/Vol] 30.8 mg/dL [facility] Color Auto (U)on 08-05-2023 Color (U) YELLOW YELLOW [facility] Erythrocyte distribution wid th Auto (RBC) [Ratio]on 08-05-2023 Erythrocyte distribution width (RBC) [Ratio] 12.1 % 11.0-15.0 [facility] Estimated glomerular filtrat ion rate (GFR) non- Americanon 08-05-2023 GFR/1.73 sq M.predicted among non-blacks MDRD (S/P/Bld) [Vol rate/Area] 44 mL/min/{1.73_m2} >=60 [facility] Hematocrit Auto (Bld) [Volum e fraction]on 08-05-2023 Hematocrit (Bld) [Volume fraction] 45.3 % 42.0-54.0 [facility] Hemoglobin [Mass/volume] in Bloodon 08-05-2023 Hemoglobin (Bld) [Mass/Vol] 15.1 g/dL 14.0-18.0 [facility] Ketones Auto test strip (U) [Mass/Vol]on 08-05-2023 Ketones (U) [Mass/Vol] Negative NEGATIVE [facility] Laboratory - Chemistry and C hemistry - challengeon 08-05-2023 Albumin [Mass/Vol] 3.3 g/dL 3.4-5.0 [facility] Calcium [Mass/Vol] 8.5 mg/dL 8.5-10.1 [facility] Chloride [Moles/Vol] 98 mmol/L 98-107 [facility] Cholesterol [Mass/Vol] 110 mg/dL <=200 [facility] Cholesterol in HDL [Mass/Vol] 47 mg/dL 40-60 [facility] Comment on above: > or =60 mg/dl - LOW CARDIOVASCULAR RISK<40 mg/dl - HIGH CARDIOVASCULAR RISK CO2 [Moles/Vol] 26.4 mmol/L 21.0-32.0 [facility] Creatinine [Mass/Vol] 1.57 mg/dL 0.70-1.30 [facility] Free T4 [Mass/Vol] 0.95 ng/dL 0.76-1.46 [facility] GFR/1.73 sq M.predicted MDRD (S/P/Bld) [Vol rate/Area] 53 mL/min/{1.73_m2} >=60 [facility] Glucose [Mass/Vol] 300 mg/dL 74-106 [facility] Magnesium [Mass/Vol] 1.9 mg/dL 1.8-2.4 [facility] Potassium [Moles/Vol] 3.8 mmol/L 3.5-5.1 [facility] Sodium [Moles/Vol] 133 mmol/L 136-145 [facility] Triglyceride [Mass/Vol] 154 mg/dL <=150 [facility] TSH Qn 1.788 m[IU]/L 0.358-3.740 [facility] Urate [Mass/Vol] 5.4 mg/dL 3.5-7.2 [facility] Urea nitrogen [Mass/Vol] 23.0 mg/dL 7.0-18.0 [facility] Urea nitrogen/Creatini ne [Mass ratio] 14.6 mg/mg [facility] Laboratory - Urinalysison Protein (U) [Mass/Vol] 19.0 mg/dL <=11.9 [facility] Leukocytes [#/volume] correc darlyn for nucleated erythrocytes in Blood by Automated counon 08-05-2023 WBC corrected for nucl RBC Auto (Bld) [#/Vol] 11.2 10 3/uL 4.0-11.0 [facility] MCH Auto (RBC) [Entitic mass ]on 08-05-2023 MCH (RBC) [Entitic mass] 31.7 pg 25.9-34.0 [facility] MCHC Auto (RBC) [Mass/Vol]on 08-05-2023 MCHC (RBC) [Mass/Vol] 33.3 g/dL 29.9-35.2 [facility] MCV Auto (RBC) [Entitic vol] on 08-05-2023 MCV (RBC) [Entitic vol] 95.2 fL 80.0-94.0 [facility] Microalbumin [Mass/volume] i n Urineon 08-05-2023 Albumin DL <= 20 mg/L (U) [Mass/Vol] 3.7 mg/dL <=30.0 [facility] Mucus LM Ql (Urine sed)on Mucus Ql (Urine sed) TRACE NONE SEEN [facility] No Panel Informationon 08-04 25-Hydroxy Vitamin D Total 61.2 ng/mL [facility] Comment on above: <20 ng/mL Vit D defi cient20-<30 ng/mL Vit D bnabvzngawwr65-243 ng/mL Vit D sufficient>100 ng/mL Potential Toxicity C-Peptide 19.7 ng/mL 1.1-4.4 [facility] Comment on above: C-Peptide reference interval is for fasting patients.Performed at: [facility] [address] [id number] Director: Prakash Barbour PhD, Phone: [phone] Free Triiodothyronine 1.71 pg/mL 2.18-3.98 [facility] Parathyroid Hormone (Intact) 34 pg/mL 15-65 [facility] Comment on above: Performed at: [facility] [address] [id number] Director: Prakash Barbour PhD, Phone: [phone] Phosphorus Level 3.9 mg/dL 2.6-4.7 [facility] Urine Random Creatinine 178.56 mg/dL 20.00-300.00 [facility] Platelet mean volume Auto (B ld) [Entitic vol]on 08-05-2023 Platelet mean volume (Bld) [Entitic vol] 12.7 fL 9.5-13.5 [facility] Platelets Auto (Bld) [#/Vol] on 08-05-2023 Platelets (Bld) [#/Vol] 234 10 3/uL 150-450 [facility] Protein Auto test strip (U) [Mass/Vol]on 08-05-2023 Protein (U) [Mass/Vol] Negative NEG/TRACE [facility] RBC Auto (Bld) [#/Vol]on RBC (Bld) [#/Vol] 4.76 10 6/uL 4.70-6.10 [facility] Serum or plasma anion gap de terminationon 08-05-2023 Anion gap [Moles/Vol] 12.4 mmol/L [facility] Serum or plasma total choles terol/high density lipoprotein (HDL) cholesterol mass caden 08-05-2023 Cholesterol.total /Cholesterol in HDL [Mass ratio] 2.3 {ratio} [facility] Comment on above: 3.3 - 4.4 LOW RISK4. 4 - 7.1 AVERAGE RISK7.1 - 11.0 MODERATE RISK>11.0 HIGH RISK Specific gravity Auto test s trip (U) [Rel density]on 08-05-2023 Specific gravity (U) [Rel density] CLEAR CLEAR [facility] Urine bacteria detection by automated methodon 08-05-2023 Bacteria Auto Ql (U) NONE SEEN #/HPF NONE SEEN [facility] Urine glucose measurement by test strip (mass/volume)on 08-05-2023 Glucose Test strip (U) [Mass/Vol] Negative NEGATIVE [facility] Urine hemoglobin detection b y automated test stripon 08-05-2023 Hemoglobin Auto test strip Ql (U) Negative NEGATIVE [facility] Urine microalbumin/creatinin e mass ratioon 08-05-2023 Albumin/Creatinin e DL <= 20 mg/L (U) [Mass ratio] 20.9 mg/g 0.0-29.9 [facility] Comment on above: NO MICROALBUMINURIA 0-29 MG/GCLINICAL MICROALBUMINURIA 30-300 MG/GMACROALBUMINURIA >300 MG/G Urine nitrite detection by a utomated test stripon 08-05-2023 Nitrite Auto test strip Ql (U) Negative NEGATIVE [facility] Urine protein/creatinine rat ioon 08-05-2023 Protein/Creatinin e (U) [Ratio] 0.11 [facility] Urine sediment leukocyte cou nt by microscopy (number/high power field)on 08-05-2023 WBC LM.HPF (Urine sed) [#/Area] NONE SEEN #/HPF NONE SEEN [facility] Urobilinogen Auto test strip (U) [Mass/Vol]on 08-05-2023 Urobilinogen Qn (U) 0.2 {Yared'U}/dL 0.2-1.0 [facility] pH Auto test strip (U)on pH (U) 5.5 [pH] 5.0-9.0 [facility] Office Visiton 05-26-2023 Follow-up visit [id number] Don Elkins 1950 M Date Provider Department Center 05/26/2023 MARJ WHITTEN [place] Family History Problem Relation Age of Onset Diabetes Mother Coronary artery disease Brother Other Brother Heart failure Brother Family Status - Relation Status Age at Mother Brother Level of Service:26148 ME OFFICE/OUTPATIENT ESTABLISHED LOW MDM 20 MIN Normal [facility] PTH INTACTon 06-14-2022 PTH, Intact 48 pg/mL Normal 15-65 [facility] Comment on above: Performed By: #### P THINT #### [facility] [address] [place] [address] Dr. Stu Sequeira HEMOGRAM AND PLATELon 2022 Hematocrit (Bld) [Volume fraction] 47.3 % Normal 42.0-54.0 [facility] Comment on above: Performed By: #### H H #### [facility] [address] [address] [address] Stu Sequeira Hemoglobin (Bld) [Mass/Vol] 14.7 g/dL Normal 14.0-18.0 [facility] Comment on above: Performed By: #### H H #### [facility] [address] [place] [address] Dr. Stu Sequeira MCH (RBC) [Entitic mass] 31.0 pg Normal 25.9-34.0 [facility] Comment on above: Performed By: #### H H #### [facility] [address] [place] [address] Dr. Stu Sequeira MCHC (RBC) [Mass/Vol] 31.1 g/dL Normal 29.9-35.2 [facility] Comment on above: Performed By: #### H H #### [facility] [address] [place] [address] Dr. Stu Sequeira MCV (RBC) [Entitic vol] 99.8 fL Critically high 80.0-94.0 [facility] Comment on above: Performed By: #### H H #### [facility] [address] [place] [address] Dr. Stu Sequeira PLT 268 103/ul Normal 150-450 [facility] Comment on above: Performed By: #### H H #### [facility] [address] [place] [address] Dr. Stu Sequeira RBC 4.74 106/ul Normal 4.70-6.10 [facility] Comment on above: Performed By: #### H H #### [facility] [address] [place] [address] Dr. Stu Sequeira WBC 9.8 103/ul Normal 4.0-11.0 [facility] Comment on above: Performed By: #### H H #### [facility] [address] [place] [address] Dr. Stu Sequeira MAGNESIUMon 06-13-2022 Magnesium [Mass/Vol] 1.6 mg/dL Critically low 1.8-2.4 [facility] Comment on above: Performed By: #### U SANTINO, MG, RENAL #### [facility] [address] [place] [address] Dr. Stu Sequeira RENAL FUNCTION PANELon 06-13 Albumin [Mass/Vol] 3.8 g/dL Normal 3.4-5.0 [facility] Comment on above: Performed By: #### U SANTINO, MG, RENAL #### [facility] [address] [place] [address] Dr. Stu Sequeira Calcium [Mass/Vol] 9.2 mg/dL Normal 8.5-10.1 [facility] Comment on above: Performed By: #### U SANTINO, MG, RENAL #### [facility] [address] [address] [address] Stu Sequeira Chloride [Moles/Vol] 99 mmol/L Normal 98-107 [facility] Comment on above: Performed By: #### U SNATINO, MG, RENAL #### [facility] [address] [place] [address] Dr. Stu Sequeira CO2 [Moles/Vol] 32.2 mmol/L Critically high 21.0-32.0 [facility] Comment on above: Performed By: #### U SANTINO, MG, RENAL #### [facility] [address] [place] [address] Dr. Stu Sequeira Creatinine [Mass/Vol] 1.58 mg/dL Critically high 0.70-1.30 [facility] Comment on above: Performed By: #### U SANTINO, MG, RENAL #### [facility] [address] [place] [address] Dr. Stu Sequeira EGFR-AF KAZAKH 53 mL/min/1.73m2 Critically low >=60 [facility] Comment on above: Performed By: #### U SANTINO, MG, RENAL #### [facility] [address] [place] [address] Dr. Stu Sequeira EGFR-NON AF KAZAKH 43 mL/min/1.73m2 Critically low >=60 [facility] Comment on above: Performed By: #### U SANTINO, MG, RENAL #### [facility] [address] [place] [address] Dr. Stu Sequeira Glucose [Mass/Vol] 95 mg/dL Normal 74-106 [facility] Comment on above: Performed By: #### U SANTINO, MG, RENAL #### [facility] [address] [place] [address] Dr. Stu Sequeira Phosphate [Mass/Vol] 4.2 mg/dL Normal 2.6-4.7 [facility] Comment on above: Performed By: #### U SANTINO, MG, RENAL #### [facility] [address] [place] [address] Dr. Stu Sequeira Potassium [Moles/Vol] 4.9 mmol/L Normal 3.5-5.1 [facility] Comment on above: Performed By: #### U SANTINO, MG, RENAL #### [facility] [address] [place] [address] Dr. Stu Sequeira Sodium [Moles/Vol] 138 mmol/L Normal 136-145 [facility] Comment on above: Performed By: #### U SANTINO, MG, RENAL #### [facility] [address] [place] [address] Dr. Stu Sequeira Urea nitrogen [Mass/Vol] 24.0 mg/dL Critically high 7.0-18.0 [facility] Comment on above: Performed By: #### U SANTINO, MG, RENAL #### [facility] [address] [place] [address] Dr. Stu Sequeira UA RANDOM W/MICROSCOPICon BACTERIA TRACE Abnormal NONE SEEN [facility] Comment on above: Performed By: #### U AMIC #### [facility] [address] [place] [address] Dr. Stu Sequeira Bilirubin Ql (U) Negative Normal NEGATIVE [facility] Comment on above: Performed By: #### U AMIC #### [facility] [address] [place] [address] Dr. Stu Sequeira CAST NONE SEEN Normal NONE SEEN [facility] Comment on above: Performed By: #### U AMIC #### [facility] [address] [place] [address] Dr. Stu Sequeira Clarity (U) CLEAR Normal CLEAR [facility] Comment on above: Performed By: #### U AMIC #### [facility] [address] [place] [address] Dr. Stu Sequeira Color (U) YELLOW Normal YELLOW [facility] Comment on above: Performed By: #### U AMIC #### [facility] [address] [place] [address] Dr. Stu Sequeira Crystals LM Nom (Urine sed) NONE SEEN Normal NONE SEEN [facility] Comment on above: Performed By: #### U AMIC #### [facility] [address] [address] [address] Stu Sequeira Epithelial cells LM Ql (Urine sed) RARE Normal NONE SEEN /RARE [facility] Comment on above: Performed By: #### U AMIC #### [facility] [address] [place] [address] Dr. Stu Sequeira Glucose Ql (U) Negative Normal NEGATIVE [facility] Comment on above: Performed By: #### U AMIC #### [facility] [facility] [address] [address] [address] Stu Sequeira Hemoglobin Ql (U) Negative Normal NEGATIVE [facility] Comment on above: Performed By: #### U AMIC #### [facility] [address] [place] [address] Dr. Stu Sequeira Ketones Ql (U) Negative Normal NEGATIVE [facility] Comment on above: Performed By: #### U AMIC #### [facility] [address] [place] [address] Dr. Stu Sequeira LEUKOCYTES Negative Normal NEGATIVE [facility] Comment on above: Performed By: #### U AMIC #### [facility] [address] [place] [address] Dr. Stu Sequeira MUCOUS NONE SEEN Normal NONE SEEN [facility] Comment on above: Performed By: #### U AMIC #### [facility] [address] [place] [address] Dr. Stu Sequeira Nitrite Ql (U) Negative Normal NEGATIVE [facility] Comment on above: Performed By: #### U AMIC #### [facility] [address] [address] [address] Stu Sequeira pH (U) 5.5 [pH] Normal 5-9 [facility] Comment on above: Performed By: #### U AMIC #### [facility] [address] [place] [address] Dr. Stu Sequeira RBC NONE SEEN Abnormal 0-2 [facility] Comment on above: Performed By: #### U AMIC #### [facility] [address] [place] [address] Dr. Stu Sequeira SPEC GRAVITY 1.025 Normal 1.005-<=1.02 5 [facility] Comment on above: Performed By: #### U AMIC #### [facility] [address] [place] [address] Dr. Stu Sequeira UA PROTEIN Negative Normal NEGATIVE/ TRACE [facility] Comment on above: Performed By: #### U AMIC #### [facility] [address] [place] [address] Dr. Stu Sequeira Urobilinogen Qn (U) 0.2 {Yared'U}/dL Normal 0.2 - 1.0 [facility] Comment on above: Performed By: #### U AMIC #### [facility] [address] [place] [address] Dr. Stu Sequeira WBC 0-2 Abnormal NONE SEEN The [facility] Comment on above: Performed By: #### U AMIC #### [facility] [address] [place] [address] Dr. Stu Sequeira URIC ACID SERUMon 06-13-2022 Urate [Mass/Vol] 5.7 mg/dL Normal 3.5-7.2 [facility] Comment on above: Performed By: #### U SANTINO, MG, RENAL #### [facility] [address] [place] [address] Dr. Stu Sequeira URINE T PROTEIN CREAT RATIOo n 06-13-2022 Protein (U) [Mass/Vol] 13.6 mg/dL Critically high <=12.0 [facility] Comment on above: Performed By: #### U RTPCR #### [facility] [address] [place] [address] Dr. Stu Sequeira UR PROT CREAT RAT 0.10 Normal [facility] Comment on above: Performed By: #### U RTPCR #### [facility] [address] [place] [address] Dr. Stu Sequeira URINE CREAT 133.40 mg/dL Normal 20.00-300.00 [facility] Comment on above: Performed By: #### U RTPCR #### [facility] [address] [place] [address] Dr. Stu Sequeira VITAMIN D 25 OHon 06-13-2022 VIT D 25-OH 66.5 ng/mL Normal [facility] Comment on above: Performed By: #### V ITAD #### [facility] [address] [place] [address] [address] [address] Stu Sequeira VIT D RANGES SEE BELOW Normal [facility] Comment on above: Result Comment: <20 ng/mL Vit D deficient 20 - <30 ng/mL Vit D insufficient 30 - 100 ng/mL Vit D sufficient >100 ng/mL Potential Toxicity Performed By: #### V ITAD #### [facility] [address] [place], [place] [address] Dr. Stu Sequeira ECHOCARDIO M/2D COMPLETEon 0 06-07-2022 ECHOCARDIO M/2D COMPLETE Patient: DON ELKINS Exam Date: 06/07/2022 : 1950 Gender:M Ordering : DR DAMARIS MEIER M.D. Admission #: [id number] Family : DR SAL SABILLON M.D. Order #: [id number] CLICK HERE TO VIEW EXAM ECHOCARDIOGRAM REPORT [...] Meier M.D. on 06/07/2022 at 12:23 Normal [facility] LIPID PROFILEon 05-24-2022 CHOL-HDL RATIO NORM SEE BELOW Normal [facility] Comment on above: Result Comment: 3.3 - 4.4 LOW RISK 4.4 - 7.1 AVERAGE RISK 7.1 - 11.0 MODERATE RISK >11.0 HIGH RISK Performed By: #### L IPID #### [facility] [address] [address] [address] Stu Sequeira Cholesterol [Mass/Vol] 111 mg/dL Normal <=200 [facility] Comment on above: Performed By: #### L IPID #### [facility] [address] [address] [address] Stu Sequeira Cholesterol in HDL [Mass/Vol] 46 mg/dL Normal 40-60 [facility] Comment on above: Performed By: #### L IPID #### [facility] [address] [address] [address] Stu Sequeira Cholesterol in LDL [Mass/Vol] 47.0 mg/dL Normal [facility] Comment on above: Performed By: #### L IPID #### [facility] [address] [address] [address] Stu Sequeira Cholesterol.total /Cholesterol in HDL [Mass ratio] 2.4 {ratio} Normal [facility] Comment on above: Performed By: #### L IPID #### [facility] [address] [address] [address] Stu Sequeira HDL NORMAL > or = 60 mg/dl - LO W CARDIOVASCULAR RISK <40 mg/dl - HIGH CARDIOVASCULAR RISK Normal [facility] Comment on above: Performed By: #### L IPID #### [facility] [address] [address] [address] Stu Sequeira LDL CALC NORMAL SEE BELOW Normal [facility] Comment on above: Result Comment: <100 mg/dl OPTIMAL 100 - 129 mg/dl NEAR OR ABOVE OPTIMAL 130 - 159 mg/dl BORDERLINE HIGH 160 - 189 mg/dl HIGH >190 mg/dl VERY HIGH Performed By: #### L IPID #### [facility] [address] [place] [address] Dr. Stu Sequeira Triglyceride [Mass/Vol] 90 mg/dL Normal <=150 [facility] Comment on above: Performed By: #### L IPID #### [facility] [address] [place] [address] Dr. Stu Sequeira VLDL CALC 18.0 mg/dL Normal [facility] Comment on above: Performed By: #### L IPID #### [facility] [address] [place] [address] Dr. Stu Sequeira PTH INTACTon 11-20-2021 PTH, Intact 38 pg/mL Normal 15-65 [facility] Comment on above: Performed By: #### U RTPCR #### [facility] [address] [place] [address] Dr. Stu Sequeira HEMOGRAM AND PLATELon 2021 Hematocrit (Bld) [Volume fraction] 43.5 % Normal 42.0-54.0 [facility] Comment on above: Performed By: #### U RTPCR #### [facility] [address] [place] [address] Dr. Stu Sequeira Hemoglobin (Bld) [Mass/Vol] 14.5 g/dL Normal 14.0-18.0 [facility] Comment on above: Performed By: #### U RTPCR #### [facility] [address] [place] [address] Dr. Stu Sequeira MCH (RBC) [Entitic mass] 31.2 pg Normal 25.9-34.0 [facility] Comment on above: Performed By: #### U RTPCR #### [facility] [address] [place] [address] Dr. Stu Sequeira MCHC (RBC) [Mass/Vol] 33.3 g/dL Normal 29.9-35.2 [facility] Comment on above: Performed By: #### U RTPCR #### [facility] [address] [place] [address] Dr. Stu Sequeira MCV (RBC) [Entitic vol] 93.5 fL Normal 80.0-94.0 [facility] Comment on above: Performed By: #### U RTPCR #### [facility] [address] [place] [address] Dr. Stu Sequeira PLT 259 103/ul Normal 150-450 [facility] Comment on above: Performed By: #### U RTPCR #### [facility] [address] [place] [address] Dr. Stu Sequeira RBC 4.65 106/ul Critically low 4.70-6.10 [facility] Comment on above: Performed By: #### U RTPCR #### [facility] [address] [place] [address] Dr. Stu Sequeira WBC 9.9 103/ul Normal 4.0-11.0 [facility] Comment on above: Performed By: #### U RTPCR #### [facility] [address] [place] [address] Dr. Stu Sequeira MAGNESIUMon 11-17-2021 Magnesium [Mass/Vol] 2.0 mg/dL Normal 1.8-2.4 [facility] Comment on above: Performed By: #### U RTPCR #### [facility] [address] [place] [address] Dr. Stu Sequeira RENAL FUNCTION PANELon 11-17 Albumin [Mass/Vol] 3.5 g/dL Normal 3.4-5.0 [facility] Comment on above: Performed By: #### U RTPCR #### [facility] [address] [place] [address] Dr. Stu Sequeira Calcium [Mass/Vol] 8.8 mg/dL Normal 8.5-10.1 [facility] Comment on above: Performed By: #### U RTPCR #### [facility] [address] [place] [address] Dr. Stu Sequeira Chloride [Moles/Vol] 105 mmol/L Normal 98-107 [facility] Comment on above: Performed By: #### U RTPCR #### [facility] [address] [address] [address] Stu Sequeira CO2 [Moles/Vol] 28.4 mmol/L Normal 21.0-32.0 [facility] Comment on above: Performed By: #### U RTPCR #### [facility] [address] [address] [address] Stu Sequeira Creatinine [Mass/Vol] 1.69 mg/dL Critically high 0.70-1.30 [facility] Comment on above: Performed By: #### U RTPCR #### [facility] [address] [address] [address] Stu Sequeira EGFR-AF KAZAKH 49 mL/min/1.73m2 Critically low >=60 [facility] Comment on above: Performed By: #### U RTPCR #### [facility] [address] [address] [address] Stu Sequeira EGFR-NON AF KAZAKH 40 mL/min/1.73m2 Critically low >=60 [facility] Comment on above: Performed By: #### U RTPCR #### [facility] [address] [address] [address] Stu Sequeira Glucose [Mass/Vol] 120 mg/dL Critically high 74-106 [facility] Comment on above: Performed By: #### U RTPCR #### [facility] [address] [address] [address] Stu Sequeira Phosphate [Mass/Vol] 3.7 mg/dL Normal 2.6-4.7 [facility] Comment on above: Performed By: #### U RTPCR #### [facility] [address] [address] [address] Stu Sequeira Potassium [Moles/Vol] 5.0 mmol/L Normal 3.5-5.1 [facility] Comment on above: Performed By: #### U RTPCR #### [facility] [address] [address] [address] Stu Sequeira Sodium [Moles/Vol] 139 mmol/L Normal 136-145 [facility] Comment on above: Performed By: #### U RTPCR #### [facility] [address] [address] [address] Stu Sequeira Urea nitrogen [Mass/Vol] 21.0 mg/dL Critically high 7.0-18.0 [facility] Comment on above: Performed By: #### U RTPCR #### [facility] [address] [address] [address] Stu Sequeira UA RANDOM W/MICROSCOPICon BACTERIA NONE SEEN Normal NONE SEEN [facility] Comment on above: Performed By: #### U AMIC #### [facility] [address] [place] [address] Dr. Stu Sequeira Bilirubin Ql (U) Negative Normal NEGATIVE [facility] Comment on above: Performed By: #### U AMIC #### [facility] [address] [place] [address] Dr. Stu Sequeira CAST NONE SEEN Normal NONE SEEN [facility] Comment on above: Performed By: #### U AMIC #### [facility] [address] [place] [address] Dr. Stu Sequeira Clarity (U) SL CLOUDY Abnormal CLEAR [facility] Comment on above: Performed By: #### U AMIC #### [facility] [address] [place] [address] Dr. Sut Sequeira Color (U) LT. YELLOW Normal YELLOW [facility] Comment on above: Performed By: #### U AMIC #### [facility] [address] [address] [address] Stu Sequeira Crystals LM Nom (Urine sed) NONE SEEN Normal NONE SEEN [facility] Comment on above: Performed By: #### U AMIC #### [facility] [address] [place] [address] Dr. Stu Sequeira Epithelial cells LM Ql (Urine sed) RARE Normal NONE SEEN /RARE [facility] Comment on above: Performed By: #### U AMIC #### [facility] [address] [place] [address] Dr. Stu Sequeira Glucose Ql (U) Negative Normal NEGATIVE [facility] Comment on above: Performed By: #### U AMIC #### [facility] [address] [address] [address] Stu Sequeira Hemoglobin Ql (U) Negative Normal NEGATIVE [facility] Comment on above: Performed By: #### U AMIC #### [facility] [address] [address] [address] Stu Sequeira Ketones Ql (U) Negative Normal NEGATIVE [facility] Comment on above: Performed By: #### U AMIC #### [facility] [address] [address] [address] Stu Sequeira LEUKOCYTES Negative Normal NEGATIVE [facility] Comment on above: Performed By: #### U AMIC #### [facility] [address] [address] [address] Stu Sequeira MUCOUS NONE SEEN Normal NONE SEEN [facility] Comment on above: Performed By: #### U AMIC #### [facility] [address] [place] [address] Dr. Stu Sequeira Nitrite Ql (U) Negative Normal NEGATIVE [facility] Comment on above: Performed By: #### U AMIC #### [facility] [address] [address] [address] Stu Sequeira pH (U) 5.0 [pH] Normal 5-9 [facility] Comment on above: Performed By: #### U AMIC #### [facility] [address] [place] [address] Dr. Stu Sequeira RBC 0-2 Normal 0-2 [facility] Comment on above: Performed By: #### U AMIC #### [facility] [address] [place] [address] Dr. Stu Sequeira SPEC GRAVITY 1.025 Normal 1.005-<=1.02 5 [facility] Comment on above: Performed By: #### U AMIC #### [facility] [address] [place] [address] Dr. Stu Sequeira UA PROTEIN Negative Normal NEGATIVE/ TRACE [facility] Comment on above: Performed By: #### U AMIC #### [facility] [address] [place] [address] Dr. Stu Sequeira Urobilinogen Qn (U) 0.2 {Yared'U}/dL Normal 0.2 - 1.0 [facility] Comment on above: Performed By: #### U AMIC #### [facility] [address] [place] [address] Dr. Stu Sequeira WBC NONE SEEN Normal NONE SEEN [facility] Comment on above: Performed By: #### U AMIC #### [facility] [address] [place] [address] Dr. Stu Sequeira URIC ACID SERUMon 11-17-2021 Urate [Mass/Vol] 7.6 mg/dL Critically high 3.5-7.2 [facility] Comment on above: Performed By: #### U RTPCR #### [facility] [address] [place] [address] Dr. Stu Sequeira URINE T PROTEIN CREAT RATIOo n 11-17-2021 Protein (U) [Mass/Vol] 19.9 mg/dL Critically high <=12.0 [facility] Comment on above: Performed By: #### U RTPCR #### [facility] [address] [place] [address] Dr. Stu Sequeira UR PROT CREAT RAT 0.13 Normal [facility] Comment on above: Performed By: #### U RTPCR #### [facility] [address] [place] [address] Dr. Stu Sequeira URINE CREAT 151.49 mg/dL Normal 20.00-300.00 [facility] Comment on above: Performed By: #### U RTPCR #### [facility] [address] [place] [address] Dr. Stu Sequeira VITAMIN D 25 OHon 11-17-2021 VIT D 25-OH 52.3 ng/mL Normal [facility] Comment on above: Performed By: #### U RTPCR #### [facility] [address] [place] [address] Dr. Stu Sequeira VIT D RANGES SEE BELOW Normal [facility] Comment on above: Result Comment: <20 ng/mL Vit D deficient 20 - <30 ng/mL Vit D insufficient 30 - 100 ng/mL Vit D sufficient >100 ng/mL Potential Toxicity Performed By: #### U RTPCR #### [facility] [address] [place] [address] Dr. Stu Sequeira Patient Correspondenceon Patient Correspondence [id number]:127 Normal [facility] Patient Letter FTon 2020 Patient Letter [facility] May 04, 2021 Dear Don Elkins, I [...] [facility] OVIDIO VALENTIN, Tam Silva Normal [facility] Basic Metabolic Panlon 12-20 Anion gap [Moles/Vol] 8 mmol/L Low 9-18 [facility] Calcium [Mass/Vol] 8.9 mg/dL Normal 8.5-10.2 [facility] Chloride [Moles/Vol] 103 mmol/L Normal 97-105 [facility] CO2 [Moles/Vol] 27 mmol/L Normal 22-30 [facility] Creatinine [Mass/Vol] 1.52 mg/dL High 0.73-1.22 [facility] eGFR- Amer. 55 Normal [facility] eGFR-All Other Races 46 . Normal [facility] Comment on above: Result Comment: eGFR (Estimated [...] GFR. Glucose [Mass/Vol] 238 mg/dL High 74-99 [facility] Comment on above: Result Comment: The [place] [employer] (ADA) provides guidance for cutoff [...] Standards of Medical Care in Diabetes 2016, [place] [employer]. Diabetes Care. 2016.39(Suppl 1). Potassium [Moles/Vol] 4.6 mmol/L Normal 3.7-5.1 [facility] Sodium [Moles/Vol] 138 mmol/L Normal 136-144 [facility] Urea nitrogen [Mass/Vol] 19 mg/dL Normal 9-24 [facility] CNOVSPon 12-20-2020 CNOVSP Visit (SP) Office (H EMASA) DON ELKINS ([id number]) 1950 M Date Time Provider Department 12/20/20 [...] PHYSICIANS: Dr. Wilson, Dr. Cortez, Dr. 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 Normal [facility] Remote CBCDIF (for [facility] use o nly)on 12-20-2020 Abs Baso 0.08 k/uL Normal <0.11 [facility] Abs [place] 0.55 k/uL Normal <0.87 [facility] Abs Neut 5.06 k/uL Normal 1.45-7.50 [facility] Absolute nRBC <0.01 Normal <0.01 [facility] Basophils/100 WBC (Bld) 1.0 % Normal [facility] DTYPE Auto Diff Normal [facility] Eosinophils (Bld) [#/Vol] 0.26 10*3/uL Normal <0.46 [facility] Eosinophils/100 WBC (Bld) 3.3 % Normal [facility] Erythrocyte distribution width (RBC) [Ratio] 12.2 % Normal 11.5-15.0 [facility] Hematocrit (Bld) [Volume fraction] 37.0 % Low 39.0-51.0 [facility] Hemoglobin (Bld) [Mass/Vol] 12.7 g/dL Low 13.0-17.0 [facility] Lymphocytes (Bld) [#/Vol] 1.86 10*3/uL Normal 1.00-4.00 [facility] Lymphocytes/100 WBC (Bld) 23.8 % Normal [facility] MCH 30.7 pG Normal 26.0-34.0 [facility] MCHC (RBC) [Mass/Vol] 34.3 g/dL Normal 30.5-36.0 [facility] MCV (RBC) [Entitic vol] 89.4 fL Normal 80.0-100.0 [facility] Monocytes/100 WBC (Bld) 7.0 % Normal [facility] Neutrophils/100 WBC (Bld) 64.9 % Normal [facility] NRBCs 0.0 /100 WBC Normal 0 [facility] Platelet mean volume (Bld) [Entitic vol] 11.9 fL Normal 9.0-12.7 [facility] Platelets (Bld) [#/Vol] 207 10*3/uL Normal 150-400 [facility] RBC (Bld) [#/Vol] 4.14 10*6/uL Low 4.20-6.00 [facility] WBC (Bld) [#/Vol] 7.81 10*3/uL Normal 3.70-11.00 [facility] CNPNon 12-19-2020 CNPN Telephone (HEMASA) DON ELKINS ([id number]) 1950 M Date Time Provider Department 12/19/20 CLAUDIO PARKER During your visit today, we recorded the following information about you: Marianna Haque RN 12/19/2020 2:08 PM Signed Orders for CBC, CMP, and Prothrombin Gene Mutation pended. Please review and approve. 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] Prostate cancer (HCC) [C61] Hypercoagulable state (HCC) [D68.59] Personal history of venous thrombosis and embolism [Z86.718] Order(s):CBC + DIFF (FOR REMOTE [facility] USE) [SQRCBCDF] Order #: [id number] FUTURE BASIC METABOLIC PNL [SQBMP] Order #: [id number] FUTURE Prescriptions as of 02/16/2021 - atorvastatin [...] Encounter Status:Closed by MAYNOR WALLIS on 02/16/21 [facility] Visit (SP) Office (H EMA) DON ELKINS ([id number]) 1950 M Date Time Provider Department 11/24/20 11:15 AM CLAUDIO PARKER During your visit today, we recorded the following information about you: Temperature Pulse Respiration Blood pressure 97.4 degrees 70/minute 16/minute 165/88 Weight Height 112.1 kg 1.727 m Claudio Parker MD 11/24/2020 2:10 PM Signed PATIENT NAME: Don Elkins DATE: 11/24/2020 PRIMARY CARE PHYSICIAN: Dr. Sal Sabillon/Marj Demarco, PAPER SLITTER OTHER PHYSICIANS: Dr. Wilson, Dr. Cortez, Dr. Arvizu ([facility] Neurology) HPI: This is a 70 year [...] HISTORY: PAST MEDICAL HISTORY Diagnosis Date - Bunn's disease (HCC) - Coronary arteriosclerosis - DVT (deep venous thrombosis) (HCC) (more content not included)... Normal [facility] Consent for Procedure/Surger yochun 11-15-2020 Consent for Procedure/Surgery [id number]:127 Normal [facility] Ambulatory Clinical Summaryo n 11-14-2020 Ambulatory Clinical Summary {[id number] Normal [facility] Ambulatory Clinical Summary {[id number]}CD:[id number] Normal [facility] Gastroenterology Office/Clin ic Noteon 11-14-2020 Gastroenterology Office/Clinic Note Chief Complaint self ref- diarrhea HPI Staff This is a 70 year old male who presents today for a self referral for diarrhea. History of Present Illness The patient or their guardian verbally consented to allow [facility] to record this visit. The 70-year-old white male presents today for dysphagia and diarrhea. He was evaluated by Dr. Stone Arboleda in 2014 for dysphagia and history of colon polyps. He proceeded with an EGD and esophageal motility testing and was diagnosed with achalasia. The patient was referred to [facility], but he states he was not [...] by Dr. Arboleda. He was referred to [facility] at that time, but pneumatic dilation was not done or recommended by [facility] as, according to the patient, they were concerned about possible perforation. The patient continued to have sporadic dysphagia. I will repeat an EGD for re-evaluation. 5. Small intestinal bacterial overgrowth (SIBO) (K63.89: Other specified diseases of intestine) The patient will start probiotics and antibiotics. ATTESTATION: Documentation services were performed by SOTO after patient consented to recording for virtual process safety specialist and provider reviewed before signing. 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 Normal [facility] Comment on above: Result Comment: Elec [...] and water are not available, use hand software deployment engineer. ? Make sure that all people in your household wash their hands well and often. ? Take [id number] and prescription medicines only as told by [...] and water are not available, use hand software deployment engineer. ? It is important that you treat your diarrhea as told by your health care provider. This information is not intended to replace advice given to you by your health care provider. Make sure you discuss any questions you have with your health care provider. Document Released: 07/25/2004 Document Revised: 07/31/2018 Document Reviewed: 03/24/2017 [employer] Patient Education ? 2019 [employer]. Normal [facility] Complete Blood Count Auto Di ffon 09-16-2020 Basophils (Bld) [#/Vol] 0.1 10*3/uL Normal 0.0-0.2 [facility] Comment on above: Result Comment: PERF ORMED BY: [place] [address] PATHOLOGIST MOLD UNLOADER TOBY GRACIA M.D. Performed By: #### B 2 GLYPROT XOCHITL, FACTOR II DNA, HOMOCYS PL, FACV LEIDM, PROCF, LIPA, LUPANTCOAG, PROT S FUN, METH, CARDIO GMA, AT3 DEF PROFILE #### [facility] , #### [id number], CBC, PHOS, BMP, FE PRO, MG #### [facility] [address] Basophils/100 WBC (Bld) 0.8 % Normal . [facility] Comment on above: Performed By: #### B 2 GLYPROT XOCHITL, FACTOR II DNA, HOMOCYS PL, FACV LEIDM, PROCF, LIPA, LUPANTCOAG, PROT S FUN, METH, CARDIO GMA, AT3 DEF PROFILE #### [facility] , #### [id number], CBC, PHOS, BMP, FE PRO, MG #### [address] Eosinophils (Bld) [#/Vol] 0.3 10*3/uL Normal 0.0-0.45 [facility] Comment on above: Performed By: #### B 2 GLYPROT XOCHITL, FACTOR II DNA, HOMOCYS PL, FACV LEIDM, PROCF, LIPA, LUPANTCOAG, PROT S FUN, METH, CARDIO GMA, AT3 DEF PROFILE #### [facility] , #### [id number], CBC, PHOS, BMP, FE PRO, MG #### [address] Eosinophils/100 WBC (Bld) 3.3 % Normal . [facility] Comment on above: Performed By: #### B 2 GLYPROT XOCHITL, FACTOR II DNA, HOMOCYS PL, FACV LEIDM, PROCF, LIPA, LUPANTCOAG, PROT S FUN, METH, CARDIO GMA, AT3 DEF PROFILE #### [facility] , #### [id number], CBC, PHOS, BMP, FE PRO, MG #### [address] Erythrocyte distribution width (RBC) [Ratio] 13.2 % Normal 12.0-14.8 [facility] Comment on above: Performed By: #### B 2 GLYPROT XOCHITL, FACTOR II DNA, HOMOCYS PL, FACV LEIDM, PROCF, LIPA, LUPANTCOAG, PROT S FUN, METH, CARDIO GMA, AT3 DEF PROFILE #### [facility] , #### [id number], CBC, PHOS, BMP, FE PRO, MG #### [address] Hematocrit (Bld) [Volume fraction] 36.9 % Low 38.8-50.0 [facility] Comment on above: Performed By: #### B 2 GLYPROT XOCHITL, FACTOR II DNA, HOMOCYS PL, FACV LEIDM, PROCF, LIPA, LUPANTCOAG, PROT S FUN, METH, CARDIO GMA, AT3 DEF PROFILE #### [facility] , #### [id number], CBC, PHOS, BMP, FE PRO, MG #### [address] Hemoglobin (Bld) [Mass/Vol] 12.5 g/dL Low 13.0-17.0 [facility] Comment on above: Performed By: #### B 2 GLYPROT XOCHITL, FACTOR II DNA, HOMOCYS PL, FACV LEIDM, PROCF, LIPA, LUPANTCOAG, PROT S FUN, METH, CARDIO GMA, AT3 DEF PROFILE #### [facility] , #### [id number], CBC, PHOS, BMP, FE PRO, MG #### [address] Lymphocytes (Bld) [#/Vol] 2.3 10*3/uL Normal 1.00-4.8 [facility] Comment on above: Performed By: #### B 2 GLYPROT XOCHITL, FACTOR II DNA, HOMOCYS PL, FACV LEIDM, PROCF, LIPA, LUPANTCOAG, PROT S FUN, METH, CARDIO GMA, AT3 DEF PROFILE #### [facility] , #### [id number], CBC, PHOS, BMP, FE PRO, MG #### [address] Lymphocytes/100 WBC (Bld) 24.6 % Normal . [facility] Comment on above: Performed By: #### B 2 GLYPROT XOCHITL, FACTOR II DNA, HOMOCYS PL, FACV LEIDM, PROCF, LIPA, LUPANTCOAG, PROT S FUN, METH, CARDIO GMA, AT3 DEF PROFILE #### [facility] , #### [id number], CBC, PHOS, BMP, FE PRO, MG #### [address] MCH (RBC) [Entitic mass] 30.7 pg Normal 27.5-35.2 [facility] Comment on above: Performed By: #### B 2 GLYPROT XOCHITL, FACTOR II DNA, HOMOCYS PL, FACV LEIDM, PROCF, LIPA, LUPANTCOAG, PROT S FUN, METH, CARDIO GMA, AT3 DEF PROFILE #### [facility] , #### [id number], CBC, PHOS, BMP, FE PRO, MG #### [facility] [address] [place] [address] MCV (RBC) [Entitic vol] 90.7 fL Normal 83.5-101 [facility] Comment on above: Performed By: #### B 2 GLYPROT XOCHITL, FACTOR II DNA, HOMOCYS PL, FACV LEIDM, PROCF, LIPA, LUPANTCOAG, PROT S FUN, METH, CARDIO GMA, AT3 DEF PROFILE #### [facility] , #### [id number], CBC, PHOS, BMP, FE PRO, MG #### [address] Mean Corpuscular HGB Conc 33.8 g/dL Normal 32.5-35.6 [facility] Comment on above: Performed By: #### B 2 GLYPROT XOCHITL, FACTOR II DNA, HOMOCYS PL, FACV LEIDM, PROCF, LIPA, LUPANTCOAG, PROT S FUN, METH, CARDIO GMA, AT3 DEF PROFILE #### [facility] , #### [id number], CBC, PHOS, BMP, FE PRO, MG #### [facility] [address] [place] [address] Monocytes (Bld) [#/Vol] 0.7 10*3/uL Normal 0.0-0.8 [facility] Comment on above: Performed By: #### B 2 GLYPROT XOCHITL, FACTOR II DNA, HOMOCYS PL, FACV LEIDM, PROCF, LIPA, LUPANTCOAG, PROT S FUN, METH, CARDIO GMA, AT3 DEF PROFILE #### [facility] , #### [id number], CBC, PHOS, BMP, FE PRO, MG #### [facility] [address] [place] [address] [place] Monocytes/100 WBC (Bld) 7.1 % Normal . [facility] Comment on above: Performed By: #### B 2 GLYPROT XOCHITL, FACTOR II DNA, HOMOCYS PL, FACV LEIDM, PROCF, LIPA, LUPANTCOAG, PROT S FUN, METH, CARDIO GMA, AT3 DEF PROFILE #### [facility] , #### [id number], CBC, PHOS, BMP, FE PRO, MG #### [place] [address] [place] Neutrophils (Bld) [#/Vol] 6.0 10*3/uL Normal 1.8-7.7 [facility] Comment on above: Performed By: #### B 2 GLYPROT XOCHITL, FACTOR II DNA, HOMOCYS PL, FACV LEIDM, PROCF, LIPA, LUPANTCOAG, PROT S FUN, METH, CARDIO GMA, AT3 DEF PROFILE #### [facility] , #### [id number], CBC, PHOS, BMP, FE PRO, MG #### [address] Neutrophils/100 WBC (Bld) 64.2 % Normal . [facility] Comment on above: Performed By: #### B 2 GLYPROT XOCHITL, FACTOR II DNA, HOMOCYS PL, FACV LEIDM, PROCF, LIPA, LUPANTCOAG, PROT S FUN, METH, CARDIO GMA, AT3 DEF PROFILE #### [facility] , #### [id number], CBC, PHOS, BMP, FE PRO, MG #### [place] [address] [place] Nucleated RBC/100 WBC (Bld) [Ratio] 0.3 % Normal 0-0.5 [facility] Comment on above: Performed By: #### B 2 GLYPROT XOCHITL, FACTOR II DNA, HOMOCYS PL, FACV LEIDM, PROCF, LIPA, LUPANTCOAG, PROT S FUN, METH, CARDIO GMA, AT3 DEF PROFILE #### [facility] , #### [id number], CBC, PHOS, BMP, FE PRO, MG #### [address] Platelet mean volume (Bld) [Entitic vol] 10.5 fL High 6.6-10.1 [facility] Comment on above: Performed By: #### B 2 GLYPROT XOCHITL, FACTOR II DNA, HOMOCYS PL, FACV LEIDM, PROCF, LIPA, LUPANTCOAG, PROT S FUN, METH, CARDIO GMA, AT3 DEF PROFILE #### [facility] , #### [id number], CBC, PHOS, BMP, FE PRO, MG #### [address] Platelets (Bld) [#/Vol] 232 10*3/uL Normal 150-450 [facility] Comment on above: Performed By: #### B 2 GLYPROT XOCHITL, FACTOR II DNA, HOMOCYS PL, FACV LEIDM, PROCF, LIPA, LUPANTCOAG, PROT S FUN, METH, CARDIO GMA, AT3 DEF PROFILE #### [facility] , #### [id number], CBC, PHOS, BMP, FE PRO, MG #### [address] RBC (Bld) [#/Vol] 4.07 10*6/uL Normal 3.90-5.60 [facility] Comment on above: Performed By: #### B 2 GLYPROT XOCHITL, FACTOR II DNA, HOMOCYS PL, FACV LEIDM, PROCF, LIPA, LUPANTCOAG, PROT S FUN, METH, CARDIO GMA, AT3 DEF PROFILE #### [facility] , #### [id number], CBC, PHOS, BMP, FE PRO, MG #### [place] [address] [place] WBC (Bld) [#/Vol] 9.4 10*3/uL Normal 4.5-11.0 [facility] Comment on above: Performed By: #### B 2 GLYPROT XOCHITL, FACTOR II DNA, HOMOCYS PL, FACV LEIDM, PROCF, LIPA, LUPANTCOAG, PROT S FUN, METH, CARDIO GMA, AT3 DEF PROFILE #### [facility] , #### [id number], CBC, PHOS, BMP, FE PRO, MG #### [facility] [address] Comprehensive Metabolic Pane harmony 09-16-2020 Albumin [Mass/Vol] 2.9 g/dL Low 3.2-5.5 [facility] Comment on above: Performed By: #### B 2 GLYPROT XOCHITL, FACTOR II DNA, HOMOCYS PL, FACV LEIDM, PROCF, LIPA, LUPANTCOAG, PROT S FUN, METH, CARDIO GMA, AT3 DEF PROFILE #### [facility] , #### [id number], CBC, PHOS, BMP, FE PRO, MG #### [facility] [address] Albumin/Globulin [Mass ratio] 1.3 {ratio} Normal [facility] Comment on above: Performed By: #### B 2 GLYPROT XOCHITL, FACTOR II DNA, HOMOCYS PL, FACV LEIDM, PROCF, LIPA, LUPANTCOAG, PROT S FUN, METH, CARDIO GMA, AT3 DEF PROFILE #### [facility] , #### [id number], CBC, PHOS, BMP, FE PRO, MG #### [facility] [address] ALP [Catalytic activity/Vol] 39 U/L Normal 32-92 [facility] Comment on above: Performed By: #### B 2 GLYPROT XOCHITL, FACTOR II DNA, HOMOCYS PL, FACV LEIDM, PROCF, LIPA, LUPANTCOAG, PROT S FUN, METH, CARDIO GMA, AT3 DEF PROFILE #### [facility] , #### [id number], CBC, PHOS, BMP, FE PRO, MG #### [facility] [address] [place] [address] ALT [Catalytic activity/Vol] 71 U/L High 10-60 [facility] Comment on above: Performed By: #### B 2 GLYPROT XOCHITL, FACTOR II DNA, HOMOCYS PL, FACV LEIDM, PROCF, LIPA, LUPANTCOAG, PROT S FUN, METH, CARDIO GMA, AT3 DEF PROFILE #### [facility] , #### [id number], CBC, PHOS, BMP, FE PRO, MG #### [address] AST [Catalytic activity/Vol] 29 U/L Normal 10-42 [facility] Comment on above: Performed By: #### B 2 GLYPROT XOCHITL, FACTOR II DNA, HOMOCYS PL, FACV LEIDM, PROCF, LIPA, LUPANTCOAG, PROT S FUN, METH, CARDIO GMA, AT3 DEF PROFILE #### [facility] , #### [id number], CBC, PHOS, BMP, FE PRO, MG #### [address] Bilirubin [Mass/Vol] 1.2 mg/dL Normal 0.3-1.2 [facility] Comment on above: Performed By: #### B 2 GLYPROT XOCHITL, FACTOR II DNA, HOMOCYS PL, FACV LEIDM, PROCF, LIPA, LUPANTCOAG, PROT S FUN, METH, CARDIO GMA, AT3 DEF PROFILE #### [facility] , #### [id number], CBC, PHOS, BMP, FE PRO, MG #### [address] Calcium [Mass/Vol] 8.1 mg/dL Low 8.2-10.2 [facility] Comment on above: Performed By: #### B 2 GLYPROT XOCHITL, FACTOR II DNA, HOMOCYS PL, FACV LEIDM, PROCF, LIPA, LUPANTCOAG, PROT S FUN, METH, CARDIO GMA, AT3 DEF PROFILE #### [facility] , #### [id number], CBC, PHOS, BMP, FE PRO, MG #### [address] Chloride [Moles/Vol] 107 mmol/L Normal 95-114 [facility] Comment on above: Performed By: #### B 2 GLYPROT XOCHITL, FACTOR II DNA, HOMOCYS PL, FACV LEIDM, PROCF, LIPA, LUPANTCOAG, PROT S FUN, METH, CARDIO GMA, AT3 DEF PROFILE #### [facility] , #### [id number], CBC, PHOS, BMP, FE PRO, MG #### [address] CO2 [Moles/Vol] 24.3 mmol/L Normal 22.0-30.0 [facility] Comment on above: Performed By: #### B 2 GLYPROT XOCHITL, FACTOR II DNA, HOMOCYS PL, FACV LEIDM, PROCF, LIPA, LUPANTCOAG, PROT S FUN, METH, CARDIO GMA, AT3 DEF PROFILE #### [facility] , #### [id number], CBC, PHOS, BMP, FE PRO, MG #### [address] Creatinine [Mass/Vol] 1.40 mg/dL High 0.64-1.27 [facility] Comment on above: Performed By: #### B 2 GLYPROT XOCHITL, FACTOR II DNA, HOMOCYS PL, FACV LEIDM, PROCF, LIPA, LUPANTCOAG, PROT S FUN, METH, CARDIO GMA, AT3 DEF PROFILE #### [facility] , #### [id number], CBC, PHOS, BMP, FE PRO, MG #### [address] Creatinine Clr Calc Pharmacy 59.28 Normal [facility] Comment on above: Result Comment: PERF ORMED BY: [place] [address] PATHOLOGIST MOLD UNLOADER TOBY GRACIA M.D. Performed By: #### B 2 GLYPROT XOCHITL, FACTOR II DNA, HOMOCYS PL, FACV LEIDM, PROCF, LIPA, LUPANTCOAG, PROT S FUN, METH, CARDIO GMA, AT3 DEF PROFILE #### [facility] , #### [id number], CBC, PHOS, BMP, FE PRO, MG #### [facility] [address] [place] [address] Estimated GFR ( Gabriela > 60 [facility] Comment on above: Result Comment: GFR estimated reference range: According to KDOQI guidelines, <60 ml/min/1.73m2 is sufficient to diagnose a patient with chronic kidney disease. Performed By: #### B 2 GLYPROT XOCHITL, FACTOR II DNA, HOMOCYS PL, FACV LEIDM, PROCF, LIPA, LUPANTCOAG, PROT S FUN, METH, CARDIO GMA, AT3 DEF PROFILE #### [facility] , #### [id number], CBC, PHOS, BMP, FE PRO, MG #### [facility] [address] [place] [address] Estimated GFR (Non- Am 50 [facility] Comment on above: Performed By: #### B 2 GLYPROT XOCHITL, FACTOR II DNA, HOMOCYS PL, FACV LEIDM, PROCF, LIPA, LUPANTCOAG, PROT S FUN, METH, CARDIO GMA, AT3 DEF PROFILE #### [facility] , #### [id number], CBC, PHOS, BMP, FE PRO, MG #### [facility] [address] [place] [address] Globulin (S) [Mass/Vol] 2.3 g/dL [facility] Comment on above: Performed By: #### B 2 GLYPROT XOCHITL, FACTOR II DNA, HOMOCYS PL, FACV LEIDM, PROCF, LIPA, LUPANTCOAG, PROT S FUN, METH, CARDIO GMA, AT3 DEF PROFILE #### [facility] , #### [id number], CBC, PHOS, BMP, FE PRO, MG #### [facility] [address] Glucose [Mass/Vol] 202 mg/dL High 70-100 [facility] Comment on above: Result Comment: [place] Glucose Reference Range is dependent on time and content of last meal. Glucose of more than 200 mg/dL in a nonstressed, ambulatory subject supports the diagnosis of Diabetes Mellitus. ADA recommended reference range Performed By: #### B 2 GLYPROT XOCHITL, FACTOR II DNA, HOMOCYS PL, FACV LEIDM, PROCF, LIPA, LUPANTCOAG, PROT S FUN, METH, CARDIO GMA, AT3 DEF PROFILE #### [facility] , #### [id number], CBC, PHOS, BMP, FE PRO, MG #### [facility] [address] [place] [address] Potassium [Moles/Vol] 4.5 mmol/L Normal 3.5-5.1 [facility] Comment on above: Performed By: #### B 2 GLYPROT XOCHITL, FACTOR II DNA, HOMOCYS PL, FACV LEIDM, PROCF, LIPA, LUPANTCOAG, PROT S FUN, METH, CARDIO GMA, AT3 DEF PROFILE #### [facility] , #### [id number], CBC, PHOS, BMP, FE PRO, MG #### [facility] [address] [place] [address] Protein [Mass/Vol] 5.2 g/dL Low 6.1-7.9 [facility] Comment on above: Performed By: #### B 2 GLYPROT XOCHITL, FACTOR II DNA, HOMOCYS PL, FACV LEIDM, PROCF, LIPA, LUPANTCOAG, PROT S FUN, METH, CARDIO GMA, AT3 DEF PROFILE #### [facility] , #### [id number], CBC, PHOS, BMP, FE PRO, MG #### [facility] [address] [place] [id number] [facility] Sodium [Moles/Vol] 137 mmol/L Normal 136-146 [facility] Comment on above: Performed By: #### B 2 GLYPROT XOCHITL, FACTOR II DNA, HOMOCYS PL, FACV LEIDM, PROCF, LIPA, LUPANTCOAG, PROT S FUN, METH, CARDIO GMA, AT3 DEF PROFILE #### [facility] , #### [id number], CBC, PHOS, BMP, FE PRO, MG #### [facility] [address] [place] [address] Urea nitrogen [Mass/Vol] 15 mg/dL Normal 9-23 [facility] Comment on above: Performed By: #### B 2 GLYPROT XOCHITL, FACTOR II DNA, HOMOCYS PL, FACV LEIDM, PROCF, LIPA, LUPANTCOAG, PROT S FUN, METH, CARDIO GMA, AT3 DEF PROFILE #### [facility] , #### [id number], CBC, PHOS, BMP, FE PRO, MG #### [facility] [address] [place] [address] Glucose Poct Glucometerson 0 09-16-2020 Commemt1 Glu2: Cleaned Meter [facility] Comment on above: Result Comment: PERF ORMED BY: [address] [place] [address] PATHOLOGIST MOLD UNLOADER TOBY GRACIA M.D. Performed By: #### B 2 GLYPROT XOCHITL, FACTOR II DNA, HOMOCYS PL, FACV LEIDM, PROCF, LIPA, LUPANTCOAG, PROT S FUN, METH, CARDIO GMA, AT3 DEF PROFILE #### [facility] , #### [id number], CBC, PHOS, BMP, FE PRO, MG #### [facility] [address] [place], [place] [id number] [place] Glucose [Mass/Vol] 184 mg/dL [facility] Comment on above: Result Comment: [place] Glucose Reference Range is dependent on time and content of last meal. Glucose of more than 200 mg/dL in a nonstressed, ambulatory subject supports the diagnosis of Diabetes Mellitus. Performed By: #### B 2 GLYPROT XOCHITL, FACTOR II DNA, HOMOCYS PL, FACV LEIDM, PROCF, LIPA, LUPANTCOAG, PROT S FUN, METH, CARDIO GMA, AT3 DEF PROFILE #### [facility] , #### [id number], CBC, PHOS, BMP, FE PRO, MG #### [facility] [address] [place] [address] Blood Cultureon 09-15-2020 Bacteria identified Cx Nom (Bld) NO GROWTH 5 DAYS PERFORMED BY: [place] [address] PATHOLOGIST MOLD UNLOADER TOBY GRACIA M.D. Normal [facility] Comment on above: Performed By: #### B 2 GLYPROT XOCHITL, FACTOR II DNA, HOMOCYS PL, FACV LEIDM, PROCF, LIPA, LUPANTCOAG, PROT S FUN, METH, CARDIO GMA, AT3 DEF PROFILE #### [facility] , #### [id number], CBC, PHOS, BMP, FE PRO, MG #### [address] Complete Blood Count Auto Di ffon 09-15-2020 Basophils (Bld) [#/Vol] 0.1 10*3/uL Normal 0.0-0.2 [facility] Comment on above: Result Comment: PERF ORMED BY: [place] [address] PATHOLOGIST MOLD UNLOADER TOBY GRACIA M.D. Performed By: #### B 2 GLYPROT XOCHITL, FACTOR II DNA, HOMOCYS PL, FACV LEIDM, PROCF, LIPA, LUPANTCOAG, PROT S FUN, METH, CARDIO GMA, AT3 DEF PROFILE #### [facility] , #### [id number], CBC, PHOS, BMP, FE PRO, MG #### [facility] [address] Basophils/100 WBC (Bld) 0.7 % Normal . [facility] Comment on above: Performed By: #### B 2 GLYPROT XOCHITL, FACTOR II DNA, HOMOCYS PL, FACV LEIDM, PROCF, LIPA, LUPANTCOAG, PROT S FUN, METH, CARDIO GMA, AT3 DEF PROFILE #### [facility] , #### [id number], CBC, PHOS, BMP, FE PRO, MG #### [address] Eosinophils (Bld) [#/Vol] 0.0 10*3/uL Normal 0.0-0.45 [facility] Comment on above: Performed By: #### B 2 GLYPROT XOCHITL, FACTOR II DNA, HOMOCYS PL, FACV LEIDM, PROCF, LIPA, LUPANTCOAG, PROT S FUN, METH, CARDIO GMA, AT3 DEF PROFILE #### [facility] , #### [id number], CBC, PHOS, BMP, FE PRO, MG #### [address] Eosinophils/100 WBC (Bld) 0.2 % Normal . [facility] Comment on above: Performed By: #### B 2 GLYPROT XOCHITL, FACTOR II DNA, HOMOCYS PL, FACV LEIDM, PROCF, LIPA, LUPANTCOAG, PROT S FUN, METH, CARDIO GMA, AT3 DEF PROFILE #### [facility] , #### [id number], CBC, PHOS, BMP, FE PRO, MG #### [address] Erythrocyte distribution width (RBC) [Ratio] 13.2 % Normal 12.0-14.8 [facility] Comment on above: Performed By: #### B 2 GLYPROT XOCHITL, FACTOR II DNA, HOMOCYS PL, FACV LEIDM, PROCF, LIPA, LUPANTCOAG, PROT S FUN, METH, CARDIO GMA, AT3 DEF PROFILE #### [facility] , #### [id number], CBC, PHOS, BMP, FE PRO, MG #### [address] Hematocrit (Bld) [Volume fraction] 37.0 % Low 38.8-50.0 [facility] Comment on above: Performed By: #### B 2 GLYPROT XOCHITL, FACTOR II DNA, HOMOCYS PL, FACV LEIDM, PROCF, LIPA, LUPANTCOAG, PROT S FUN, METH, CARDIO GMA, AT3 DEF PROFILE #### [facility] , #### [id number], CBC, PHOS, BMP, FE PRO, MG #### [address] Hemoglobin (Bld) [Mass/Vol] 12.8 g/dL Low 13.0-17.0 [facility] Comment on above: Performed By: #### B 2 GLYPROT XOCHITL, FACTOR II DNA, HOMOCYS PL, FACV LEIDM, PROCF, LIPA, LUPANTCOAG, PROT S FUN, METH, CARDIO GMA, AT3 DEF PROFILE #### [facility] , #### [id number], CBC, PHOS, BMP, FE PRO, MG #### [address] Lymphocytes (Bld) [#/Vol] 1.3 10*3/uL Normal 1.00-4.8 [facility] Comment on above: Performed By: #### B 2 GLYPROT XOCHITL, FACTOR II DNA, HOMOCYS PL, FACV LEIDM, PROCF, LIPA, LUPANTCOAG, PROT S FUN, METH, CARDIO GMA, AT3 DEF PROFILE #### [facility] , #### [id number], CBC, PHOS, BMP, FE PRO, MG #### [address] Lymphocytes/100 WBC (Bld) 10.6 % Normal . [facility] Comment on above: Performed By: #### B 2 GLYPROT XOCHITL, FACTOR II DNA, HOMOCYS PL, FACV LEIDM, PROCF, LIPA, LUPANTCOAG, PROT S FUN, METH, CARDIO GMA, AT3 DEF PROFILE #### [facility] , #### [id number], CBC, PHOS, BMP, FE PRO, MG #### [address] MCH (RBC) [Entitic mass] 31.8 pg Normal 27.5-35.2 [facility] Comment on above: Performed By: #### B 2 GLYPROT XOCHITL, FACTOR II DNA, HOMOCYS PL, FACV LEIDM, PROCF, LIPA, LUPANTCOAG, PROT S FUN, METH, CARDIO GMA, AT3 DEF PROFILE #### [facility] , #### [id number], CBC, PHOS, BMP, FE PRO, MG #### [address] MCV (RBC) [Entitic vol] 91.7 fL Normal 83.5-101 [facility] Comment on above: Performed By: #### B 2 GLYPROT XOCHITL, FACTOR II DNA, HOMOCYS PL, FACV LEIDM, PROCF, LIPA, LUPANTCOAG, PROT S FUN, METH, CARDIO GMA, AT3 DEF PROFILE #### [facility] , #### [id number], CBC, PHOS, BMP, FE PRO, MG #### [address] Mean Corpuscular HGB Conc 34.7 g/dL Normal 32.5-35.6 [facility] Comment on above: Performed By: #### B 2 GLYPROT XOCHITL, FACTOR II DNA, HOMOCYS PL, FACV LEIDM, PROCF, LIPA, LUPANTCOAG, PROT S FUN, METH, CARDIO GMA, AT3 DEF PROFILE #### [facility] , #### [id number], CBC, PHOS, BMP, FE PRO, MG #### [facility] [address] Monocytes (Bld) [#/Vol] 0.7 10*3/uL Normal 0.0-0.8 [facility] Comment on above: Performed By: #### B 2 GLYPROT XOCHITL, FACTOR II DNA, HOMOCYS PL, FACV LEIDM, PROCF, LIPA, LUPANTCOAG, PROT S FUN, METH, CARDIO GMA, AT3 DEF PROFILE #### [facility] , #### [id number], CBC, PHOS, BMP, FE PRO, MG #### [facility] [address] [place] [address] [place] Monocytes/100 WBC (Bld) 5.6 % Normal . [facility] Comment on above: Performed By: #### B 2 GLYPROT XOCHITL, FACTOR II DNA, HOMOCYS PL, FACV LEIDM, PROCF, LIPA, LUPANTCOAG, PROT S FUN, METH, CARDIO GMA, AT3 DEF PROFILE #### [facility] , #### [id number], CBC, PHOS, BMP, FE PRO, MG #### [place] [address] [place] Neutrophils (Bld) [#/Vol] 10.2 10*3/uL High 1.8-7.7 [facility] Comment on above: Performed By: #### B 2 GLYPROT XOCHITL, FACTOR II DNA, HOMOCYS PL, FACV LEIDM, PROCF, LIPA, LUPANTCOAG, PROT S FUN, METH, CARDIO GMA, AT3 DEF PROFILE #### [facility] , #### [id number], CBC, PHOS, BMP, FE PRO, MG #### [place] [address] [place] Neutrophils/100 WBC (Bld) 82.9 % Normal . [facility] Comment on above: Performed By: #### B 2 GLYPROT XOCHITL, FACTOR II DNA, HOMOCYS PL, FACV LEIDM, PROCF, LIPA, LUPANTCOAG, PROT S FUN, METH, CARDIO GMA, AT3 DEF PROFILE #### [facility] , #### [id number], CBC, PHOS, BMP, FE PRO, MG #### [facility] [address] [place] [address] Nucleated RBC/100 WBC (Bld) [Ratio] 0.1 % Normal 0-0.5 [facility] Comment on above: Performed By: #### B 2 GLYPROT XOCHITL, FACTOR II DNA, HOMOCYS PL, FACV LEIDM, PROCF, LIPA, LUPANTCOAG, PROT S FUN, METH, CARDIO GMA, AT3 DEF PROFILE #### [facility] , #### [id number], CBC, PHOS, BMP, FE PRO, MG #### [address] Platelet mean volume (Bld) [Entitic vol] 10.2 fL High 6.6-10.1 [facility] Comment on above: Performed By: #### B 2 GLYPROT XOCHITL, FACTOR II DNA, HOMOCYS PL, FACV LEIDM, PROCF, LIPA, LUPANTCOAG, PROT S FUN, METH, CARDIO GMA, AT3 DEF PROFILE #### [facility] , #### [id number], CBC, PHOS, BMP, FE PRO, MG #### [address] Platelets (Bld) [#/Vol] 251 10*3/uL Normal 150-450 [facility] Comment on above: Performed By: #### B 2 GLYPROT XOCHITL, FACTOR II DNA, HOMOCYS PL, FACV LEIDM, PROCF, LIPA, LUPANTCOAG, PROT S FUN, METH, CARDIO GMA, AT3 DEF PROFILE #### [facility] , #### [id number], CBC, PHOS, BMP, FE PRO, MG #### [address] RBC (Bld) [#/Vol] 4.04 10*6/uL Normal 3.90-5.60 [facility] Comment on above: Performed By: #### B 2 GLYPROT XOCHITL, FACTOR II DNA, HOMOCYS PL, FACV LEIDM, PROCF, LIPA, LUPANTCOAG, PROT S FUN, METH, CARDIO GMA, AT3 DEF PROFILE #### [facility] , #### [id number], CBC, PHOS, BMP, FE PRO, MG #### [facility] [address] WBC (Bld) [#/Vol] 12.3 10*3/uL High 4.5-11.0 [facility] Comment on above: Performed By: #### B 2 GLYPROT XOCHITL, FACTOR II DNA, HOMOCYS PL, FACV LEIDM, PROCF, LIPA, LUPANTCOAG, PROT S FUN, METH, CARDIO GMA, AT3 DEF PROFILE #### [facility] , #### [id number], CBC, PHOS, BMP, FE PRO, MG #### [facility] [address] [place] [address] Comprehensive Metabolic Pane harmony 09-15-2020 Albumin [Mass/Vol] 2.7 g/dL Low 3.2-5.5 [facility] Comment on above: Performed By: #### B 2 GLYPROT XOCHITL, FACTOR II DNA, HOMOCYS PL, FACV LEIDM, PROCF, LIPA, LUPANTCOAG, PROT S FUN, METH, CARDIO GMA, AT3 DEF PROFILE #### [facility] , #### [id number], CBC, PHOS, BMP, FE PRO, MG #### [facility] [address] [place] [address] Albumin/Globulin [Mass ratio] 1.2 {ratio} Normal [facility] Comment on above: Performed By: #### B 2 GLYPROT XOCHITL, FACTOR II DNA, HOMOCYS PL, FACV LEIDM, PROCF, LIPA, LUPANTCOAG, PROT S FUN, METH, CARDIO GMA, AT3 DEF PROFILE #### [facility] , #### [id number], CBC, PHOS, BMP, FE PRO, MG #### [address] ALP [Catalytic activity/Vol] 40 U/L Normal 32-92 [facility] Comment on above: Performed By: #### B 2 GLYPROT XOCHITL, FACTOR II DNA, HOMOCYS PL, FACV LEIDM, PROCF, LIPA, LUPANTCOAG, PROT S FUN, METH, CARDIO GMA, AT3 DEF PROFILE #### [facility] , #### [id number], CBC, PHOS, BMP, FE PRO, MG #### [address] ALT [Catalytic activity/Vol] 86 U/L High 10-60 [facility] Comment on above: Performed By: #### B 2 GLYPROT XOCHITL, FACTOR II DNA, HOMOCYS PL, FACV LEIDM, PROCF, LIPA, LUPANTCOAG, PROT S FUN, METH, CARDIO GMA, AT3 DEF PROFILE #### [facility] , #### [id number], CBC, PHOS, BMP, FE PRO, MG #### [address] AST [Catalytic activity/Vol] 28 U/L Normal 10-42 [facility] Comment on above: Performed By: #### B 2 GLYPROT XOCHITL, FACTOR II DNA, HOMOCYS PL, FACV LEIDM, PROCF, LIPA, LUPANTCOAG, PROT S FUN, METH, CARDIO GMA, AT3 DEF PROFILE #### [facility] , #### [id number], CBC, PHOS, BMP, FE PRO, MG #### [address] Bilirubin [Mass/Vol] 1.1 mg/dL Normal 0.3-1.2 [facility] Comment on above: Performed By: #### B 2 GLYPROT XOCHITL, FACTOR II DNA, HOMOCYS PL, FACV LEIDM, PROCF, LIPA, LUPANTCOAG, PROT S FUN, METH, CARDIO GMA, AT3 DEF PROFILE #### [facility] , #### [id number], CBC, PHOS, BMP, FE PRO, MG #### [address] Calcium [Mass/Vol] 7.6 mg/dL Low 8.2-10.2 [facility] Comment on above: Performed By: #### B 2 GLYPROT XOCHITL, FACTOR II DNA, HOMOCYS PL, FACV LEIDM, PROCF, LIPA, LUPANTCOAG, PROT S FUN, METH, CARDIO GMA, AT3 DEF PROFILE #### [facility] , #### [id number], CBC, PHOS, BMP, FE PRO, MG #### [address] Chloride [Moles/Vol] 106 mmol/L Normal 95-114 [facility] Comment on above: Performed By: #### B 2 GLYPROT XOCHITL, FACTOR II DNA, HOMOCYS PL, FACV LEIDM, PROCF, LIPA, LUPANTCOAG, PROT S FUN, METH, CARDIO GMA, AT3 DEF PROFILE #### [facility] , #### [id number], CBC, PHOS, BMP, FE PRO, MG #### [address] CO2 [Moles/Vol] 19.7 mmol/L Low 22.0-30.0 [facility] Comment on above: Performed By: #### B 2 GLYPROT XOCHITL, FACTOR II DNA, HOMOCYS PL, FACV LEIDM, PROCF, LIPA, LUPANTCOAG, PROT S FUN, METH, CARDIO GMA, AT3 DEF PROFILE #### [facility] , #### [id number], CBC, PHOS, BMP, FE PRO, MG #### [address] Creatinine [Mass/Vol] 1.95 mg/dL High 0.64-1.27 [facility] Comment on above: Performed By: #### B 2 GLYPROT XOCHITL, FACTOR II DNA, HOMOCYS PL, FACV LEIDM, PROCF, LIPA, LUPANTCOAG, PROT S FUN, METH, CARDIO GMA, AT3 DEF PROFILE #### [facility] , #### [id number], CBC, PHOS, BMP, FE PRO, MG #### [facility] [address] [place] [address] Creatinine Clr Calc Pharmacy 42.44 [facility] Comment on above: Performed By: #### B 2 GLYPROT XOCHITL, FACTOR II DNA, HOMOCYS PL, FACV LEIDM, PROCF, LIPA, LUPANTCOAG, PROT S FUN, METH, CARDIO GMA, AT3 DEF PROFILE #### [facility] , #### [id number], CBC, PHOS, BMP, FE PRO, MG #### [facility] [address] [place] [address] Estimated GFR ( Gabriela 41 [facility] Comment on above: Result Comment: GFR estimated reference range: According to KDOQI guidelines, <60 ml/min/1.73m2 is sufficient to diagnose a patient with chronic kidney disease. Performed By: #### B 2 GLYPROT XOCHITL, FACTOR II DNA, HOMOCYS PL, FACV LEIDM, PROCF, LIPA, LUPANTCOAG, PROT S FUN, METH, CARDIO GMA, AT3 DEF PROFILE #### [facility] , #### [id number], CBC, PHOS, BMP, FE PRO, MG #### [address] Estimated GFR (Non- Am 34 [facility] Comment on above: Performed By: #### B 2 GLYPROT XOCHITL, FACTOR II DNA, HOMOCYS PL, FACV LEIDM, PROCF, LIPA, LUPANTCOAG, PROT S FUN, METH, CARDIO GMA, AT3 DEF PROFILE #### [facility] , #### [id number], CBC, PHOS, BMP, FE PRO, MG #### [facility] [address] Globulin (S) [Mass/Vol] 2.3 g/dL Normal [facility] Comment on above: Performed By: #### B 2 GLYPROT XOCHITL, FACTOR II DNA, HOMOCYS PL, FACV LEIDM, PROCF, LIPA, LUPANTCOAG, PROT S FUN, METH, CARDIO GMA, AT3 DEF PROFILE #### [facility] , #### [id number], CBC, PHOS, BMP, FE PRO, MG #### [facility] [address] Glucose [Mass/Vol] 301 mg/dL High 70-100 [facility] Comment on above: Result Comment: [facility] Glucose Reference Range is dependent on time and content of last meal. Glucose of more than 200 mg/dL in a nonstressed, ambulatory subject supports the diagnosis of Diabetes Mellitus. ADA recommended reference range Performed By: #### B 2 GLYPROT XOCHITL, FACTOR II DNA, HOMOCYS PL, FACV LEIDM, PROCF, LIPA, LUPANTCOAG, PROT S FUN, METH, CARDIO GMA, AT3 DEF PROFILE #### [facility] , #### [id number], CBC, PHOS, BMP, FE PRO, MG #### [facility] [address] Potassium [Moles/Vol] 4.9 mmol/L Normal 3.5-5.1 [facility] Comment on above: Performed By: #### B 2 GLYPROT XOCHITL, FACTOR II DNA, HOMOCYS PL, FACV LEIDM, PROCF, LIPA, LUPANTCOAG, PROT S FUN, METH, CARDIO GMA, AT3 DEF PROFILE #### [facility] , #### [id number], CBC, PHOS, BMP, FE PRO, MG #### [facility] [address] Protein [Mass/Vol] 5.0 g/dL Low 6.1-7.9 [facility] Comment on above: Performed By: #### B 2 GLYPROT XOCHITL, FACTOR II DNA, HOMOCYS PL, FACV LEIDM, PROCF, LIPA, LUPANTCOAG, PROT S FUN, METH, CARDIO GMA, AT3 DEF PROFILE #### [facility] , #### [id number], CBC, PHOS, BMP, FE PRO, MG #### [address] Sodium [Moles/Vol] 134 mmol/L Low 136-146 [facility] Comment on above: Performed By: #### B 2 GLYPROT XOCHITL, FACTOR II DNA, HOMOCYS PL, FACV LEIDM, PROCF, LIPA, LUPANTCOAG, PROT S FUN, METH, CARDIO GMA, AT3 DEF PROFILE #### [facility] , #### [id number], CBC, PHOS, BMP, FE PRO, MG #### [address] Urea nitrogen [Mass/Vol] 22 mg/dL Normal 02-08 [facility] Comment on above: Performed By: #### B 2 GLYPROT XOCHITL, FACTOR II DNA, HOMOCYS PL, FACV LEIDM, PROCF, LIPA, LUPANTCOAG, PROT S FUN, METH, CARDIO GMA, AT3 DEF PROFILE #### [facility] , #### [id number], CBC, PHOS, BMP, FE PRO, MG #### [address] Glucose Poct Glucometerson 0 09-15-2020 Commemt1 Glu2: Cleaned Meter Normal [facility] Comment on above: Result Comment: PERF ORMED BY: [place] [address] PATHOLOGIST MOLD UNLOADER TOBY GRACIA M.D. Performed By: #### B 2 GLYPROT XOCHITL, FACTOR II DNA, HOMOCYS PL, FACV LEIDM, PROCF, LIPA, LUPANTCOAG, PROT S FUN, METH, CARDIO GMA, AT3 DEF PROFILE #### [facility] , #### [id number], CBC, PHOS, BMP, FE PRO, MG #### [facility] [address] [place] [address] [place] Glucose [Mass/Vol] 245 mg/dL Normal [facility] Comment on above: Result Comment: [place] [facility] Glucose Reference Range is dependent on time and content of last meal. Glucose of more than 200 mg/dL in a nonstressed, ambulatory subject supports the diagnosis of Diabetes Mellitus. Performed By: #### B 2 GLYPROT XOCHITL, FACTOR II DNA, HOMOCYS PL, FACV LEIDM, PROCF, LIPA, LUPANTCOAG, PROT S FUN, METH, CARDIO GMA, AT3 DEF PROFILE #### [facility] , #### [id number], CBC, PHOS, BMP, FE PRO, MG #### [place] [address] [place] Glucose [Mass/Vol] 243 mg/dL Normal [facility] Comment on above: Result Comment: [place] [facility] Glucose Reference Range is dependent on time and content of last meal. Glucose of more than 200 mg/dL in a nonstressed, ambulatory subject supports the diagnosis of Diabetes Mellitus. PERFORMED BY: [place] [address] PATHOLOGIST MOLD UNLOADER TOBY GRACIA M.D. Performed By: #### B 2 GLYPROT XOCHITL, FACTOR II DNA, HOMOCYS PL, FACV LEIDM, PROCF, LIPA, LUPANTCOAG, PROT S FUN, METH, CARDIO GMA, AT3 DEF PROFILE #### [facility] , #### [id number], CBC, PHOS, BMP, FE PRO, MG #### [facility] [address] [place] [address] [place] Glucose [Mass/Vol] 253 mg/dL Normal [facility] Comment on above: Result Comment: [place] Glucose Reference Range is dependent on time and content of last meal. Glucose of more than 200 mg/dL in a nonstressed, ambulatory subject supports the diagnosis of Diabetes Mellitus. PERFORMED BY: [address] [place] [address] PATHOLOGIST MOLD UNLOADER TOBY GRACIA M.D. Performed By: #### B 2 GLYPROT XOCHITL, FACTOR II DNA, HOMOCYS PL, FACV LEIDM, PROCF, LIPA, LUPANTCOAG, PROT S FUN, METH, CARDIO GMA, AT3 DEF PROFILE #### [facility] , #### [id number], CBC, PHOS, BMP, FE PRO, MG #### [facility] [address] [place] [address] [place] Glucose [Mass/Vol] 299 mg/dL Normal [facility] Comment on above: Result Comment: [place] Glucose Reference Range is dependent on time and content of last meal. Glucose of more than 200 mg/dL in a nonstressed, ambulatory subject supports the diagnosis of Diabetes Mellitus. PERFORMED BY: [place] [phone] PATHOLOGIST MOLD UNLOADER TOBY GRACIA M.D. Performed By: #### B 2 GLYPROT XOCHITL, FACTOR II DNA, HOMOCYS PL, FACV LEIDM, PROCF, LIPA, LUPANTCOAG, PROT S FUN, METH, CARDIO GMA, AT3 DEF PROFILE #### [facility] , #### [id number], CBC, PHOS, BMP, FE PRO, MG #### [facility] [address] [place] [address] [place] Glucose [Mass/Vol] 234 mg/dL Normal [facility] Comment on above: Result Comment: [place] Glucose Reference Range is dependent on time and content of last meal. Glucose of more than 200 mg/dL in a nonstressed, ambulatory subject supports the diagnosis of Diabetes Mellitus. PERFORMED BY: [place] [phone] PATHOLOGIST MOLD UNLOADER TOBY GRACIA M.D. Performed By: #### B 2 GLYPROT XOCHITL, FACTOR II DNA, HOMOCYS PL, FACV LEIDM, PROCF, LIPA, LUPANTCOAG, PROT S FUN, METH, CARDIO GMA, AT3 DEF PROFILE #### [facility] , #### [id number], CBC, PHOS, BMP, FE PRO, MG #### [facility] [address] Lactic Acid Reflexon 021 Lactic Acid Reflex 3.3 mmol/L Off scale high 0.5-2.2 [facility] Comment on above: Result Comment: Crit ical value result called at 2226 on 09/14/20 PERFORMED BY: [place] [address] PATHOLOGIST MOLD UNLOADER TOBY GRACIA M.D. Performed By: #### B 2 GLYPROT XOCHITL, FACTOR II DNA, HOMOCYS PL, FACV LEIDM, PROCF, LIPA, LUPANTCOAG, PROT S FUN, METH, CARDIO GMA, AT3 DEF PROFILE #### [facility] , #### [id number], CBC, PHOS, BMP, FE PRO, MG #### [facility] [address] Lactoferrin, Stool WBCon Lactoferrin, Stool WBC [...] Amplification Reference range = Negative PERFORMED BY: [place] [address] PATHOLOGIST MOLD UNLOADER TOBY GRACIA M.D. Normal [facility] Comment on above: Performed By: #### B 2 GLYPROT XOCHITL, FACTOR II DNA, HOMOCYS PL, FACV LEIDM, PROCF, LIPA, LUPANTCOAG, PROT S FUN, METH, CARDIO GMA, AT3 DEF PROFILE #### [facility] , #### [id number], CBC, PHOS, BMP, FE PRO, MG #### [facility] [address] [place] [address] Magnesiumon 09-15-2020 Magnesium [Mass/Vol] 1.5 mg/dL Low 1.6-2.6 [facility] Comment on above: Result Comment: PERF ORMED BY: [place] [address] PATHOLOGIST MOLD UNLOADER TOBY GRACIA M.D. Performed By: #### B 2 GLYPROT XOCHITL, FACTOR II DNA, HOMOCYS PL, FACV LEIDM, PROCF, LIPA, LUPANTCOAG, PROT S FUN, METH, CARDIO GMA, AT3 DEF PROFILE #### [facility] , #### [id number], CBC, PHOS, BMP, FE PRO, MG #### [facility] [address] [place] [address] Urinalysison 09-15-2020 Appearance (U) Clear Normal Clear [facility] Comment on above: Order Comment: PT IS NON FASTING Performed By: #### B 2 GLYPROT XOCHITL, FACTOR II DNA, HOMOCYS PL, FACV LEIDM, PROCF, LIPA, LUPANTCOAG, PROT S FUN, METH, CARDIO GMA, AT3 DEF PROFILE #### [facility] , #### [id number], CBC, PHOS, BMP, FE PRO, MG #### [facility] [address] [place] [address] Bilirubin,Urine Negative Normal Negative [facility] Comment on above: Order Comment: PT IS NON FASTING Performed By: #### B 2 GLYPROT XOCHITL, FACTOR II DNA, HOMOCYS PL, FACV LEIDM, PROCF, LIPA, LUPANTCOAG, PROT S FUN, METH, CARDIO GMA, AT3 DEF PROFILE #### [facility] , #### [id number], CBC, PHOS, BMP, FE PRO, MG #### [place] [address] [place] Color (U) Yellow Normal Yellow [facility] Comment on above: Order Comment: PT IS NON FASTING Performed By: #### B 2 GLYPROT XOCHITL, FACTOR II DNA, HOMOCYS PL, FACV LEIDM, PROCF, LIPA, LUPANTCOAG, PROT S FUN, METH, CARDIO GMA, AT3 DEF PROFILE #### [facility] , #### [id number], CBC, PHOS, BMP, FE PRO, MG #### [address] Glucose Ql (U) 100 mg/dL High Normal [facility] Comment on above: Order Comment: PT IS NON FASTING Performed By: #### B 2 GLYPROT XOCHITL, FACTOR II DNA, HOMOCYS PL, FACV LEIDM, PROCF, LIPA, LUPANTCOAG, PROT S FUN, METH, CARDIO GMA, AT3 DEF PROFILE #### [facility] , #### [id number], CBC, PHOS, BMP, FE PRO, MG #### [place] [address] [place] Ketones Ql (U) Trace High Negative [facility] Comment on above: Order Comment: PT IS NON FASTING Performed By: #### B 2 GLYPROT XOCHITL, FACTOR II DNA, HOMOCYS PL, FACV LEIDM, PROCF, LIPA, LUPANTCOAG, PROT S FUN, METH, CARDIO GMA, AT3 DEF PROFILE #### [facility] , #### [id number], CBC, PHOS, BMP, FE PRO, MG #### [address] Leukocyte esterase Test strip Ql (U) Negative Normal Negative [facility] Comment on above: Order Comment: PT IS NON FASTING Performed By: #### B 2 GLYPROT XOCHITL, FACTOR II DNA, HOMOCYS PL, FACV LEIDM, PROCF, LIPA, LUPANTCOAG, PROT S FUN, METH, CARDIO GMA, AT3 DEF PROFILE #### [facility] , #### [id number], CBC, PHOS, BMP, FE PRO, MG #### [facility] [address] [place] [address] Nitrite,Urine Negative Normal Negative [facility] Comment on above: Order Comment: PT IS NON FASTING Performed By: #### B 2 GLYPROT XOCHITL, FACTOR II DNA, HOMOCYS PL, FACV LEIDM, PROCF, LIPA, LUPANTCOAG, PROT S FUN, METH, CARDIO GMA, AT3 DEF PROFILE #### [facility] , #### [id number], CBC, PHOS, BMP, FE PRO, MG #### [facility] [address] [place] [address] Occult Blood,Urine Negative Normal Negative [facility] Comment on above: Order Comment: PT IS NON FASTING Result Comment: PERF ORMED BY: [place] [address] PATHOLOGIST MOLD UNLOADER TOBY GRACIA M.D. Performed By: #### B 2 GLYPROT XOCHITL, FACTOR II DNA, HOMOCYS PL, FACV LEIDM, PROCF, LIPA, LUPANTCOAG, PROT S FUN, METH, CARDIO GMA, AT3 DEF PROFILE #### [facility] , #### [id number], CBC, PHOS, BMP, FE PRO, MG #### [facility] [address] [place] [address] pH (U) 5.0 [pH] Normal 5.0-9.0 [facility] Comment on above: Order Comment: PT IS NON FASTING Performed By: #### B 2 GLYPROT XOCHITL, FACTOR II DNA, HOMOCYS PL, FACV LEIDM, PROCF, LIPA, LUPANTCOAG, PROT S FUN, METH, CARDIO GMA, AT3 DEF PROFILE #### [facility] , #### [id number], CBC, PHOS, BMP, FE PRO, MG #### [facility] [address] [place] [address] Protein,Urine Negative Normal Negative [facility] Comment on above: Order Comment: PT IS NON FASTING Performed By: #### B 2 GLYPROT XOCHITL, FACTOR II DNA, HOMOCYS PL, FACV LEIDM, PROCF, LIPA, LUPANTCOAG, PROT S FUN, METH, CARDIO GMA, AT3 DEF PROFILE #### [facility] , #### [id number], CBC, PHOS, BMP, FE PRO, MG #### [address] Specificy [place],Urine 1.018 Normal 1.001-1.030 [facility] Comment on above: Order Comment: PT IS NON FASTING Performed By: #### B 2 GLYPROT XOCHITL, FACTOR II DNA, HOMOCYS PL, FACV LEIDM, PROCF, LIPA, LUPANTCOAG, PROT S FUN, METH, CARDIO GMA, AT3 DEF PROFILE #### [facility] , #### [id number], CBC, PHOS, BMP, FE PRO, MG #### [address] Urobilinogen,Urin e Normal Normal Normal [facility] Comment on above: Order Comment: PT IS NON FASTING Performed By: #### B 2 GLYPROT XOCHITL, FACTOR II DNA, HOMOCYS PL, FACV LEIDM, PROCF, LIPA, LUPANTCOAG, PROT S FUN, METH, CARDIO GMA, AT3 DEF PROFILE #### [facility] , #### [id number], CBC, PHOS, BMP, FE PRO, MG #### [address] Basic Metabolic Panelon 08-18 Calcium [Mass/Vol] 8.5 mg/dL Normal 8.2-10.2 [facility] Comment on above: Performed By: #### B 2 GLYPROT XOCHITL, FACTOR II DNA, HOMOCYS PL, FACV LEIDM, PROCF, LIPA, LUPANTCOAG, PROT S FUN, METH, CARDIO GMA, AT3 DEF PROFILE #### [facility] , #### [id number], CBC, PHOS, BMP, FE PRO, MG #### [facility] [address] Chloride [Moles/Vol] 99 mmol/L Normal 95-114 [facility] Comment on above: Performed By: #### B 2 GLYPROT XOCHITL, FACTOR II DNA, HOMOCYS PL, FACV LEIDM, PROCF, LIPA, LUPANTCOAG, PROT S FUN, METH, CARDIO GMA, AT3 DEF PROFILE #### [facility] , #### [id number], CBC, PHOS, BMP, FE PRO, MG #### [address] CO2 [Moles/Vol] 22.9 mmol/L Normal 22.0-30.0 [facility] Comment on above: Performed By: #### B 2 GLYPROT XOCHITL, FACTOR II DNA, HOMOCYS PL, FACV LEIDM, PROCF, LIPA, LUPANTCOAG, PROT S FUN, METH, CARDIO GMA, AT3 DEF PROFILE #### [facility] , #### [id number], CBC, PHOS, BMP, FE PRO, MG #### [address] Creatinine [Mass/Vol] 2.82 mg/dL High 0.64-1.27 [facility] Comment on above: Performed By: #### B 2 GLYPROT XOCHITL, FACTOR II DNA, HOMOCYS PL, FACV LEIDM, PROCF, LIPA, LUPANTCOAG, PROT S FUN, METH, CARDIO GMA, AT3 DEF PROFILE #### [facility] , #### [id number], CBC, PHOS, BMP, FE PRO, MG #### [facility] [address] Creatinine Clr Calc Pharmacy 28.93 [facility] Comment on above: Performed By: #### B 2 GLYPROT XOCHITL, FACTOR II DNA, HOMOCYS PL, FACV LEIDM, PROCF, LIPA, LUPANTCOAG, PROT S FUN, METH, CARDIO GMA, AT3 DEF PROFILE #### [facility] , #### [id number], CBC, PHOS, BMP, FE PRO, MG #### [facility] [address] Estimated GFR ( Gabriela 27 [facility] Comment on above: Result Comment: GFR estimated reference range: According to KDOQI guidelines, <60 ml/min/1.73m2 is sufficient to diagnose a patient with chronic kidney disease. Performed By: #### B 2 GLYPROT XOCHITL, FACTOR II DNA, HOMOCYS PL, FACV LEIDM, PROCF, LIPA, LUPANTCOAG, PROT S FUN, METH, CARDIO GMA, AT3 DEF PROFILE #### [facility] , #### [id number], CBC, PHOS, BMP, FE PRO, MG #### [address] Estimated GFR (Non- Am 22 [facility] Comment on above: Performed By: #### B 2 GLYPROT XOCHITL, FACTOR II DNA, HOMOCYS PL, FACV LEIDM, PROCF, LIPA, LUPANTCOAG, PROT S FUN, METH, CARDIO GMA, AT3 DEF PROFILE #### [facility] , #### [id number], CBC, PHOS, BMP, FE PRO, MG #### [facility] [address] [place] [address] Glucose [Mass/Vol] 388 mg/dL High 70-100 [facility] Comment on above: Result Comment: [place] Glucose Reference Range is dependent on [...] AT3 DEF PROFILE #### [facility] , #### [id number], CBC, PHOS, BMP, FE PRO, MG #### [address] Potassium [Moles/Vol] 4.7 mmol/L Normal 3.5-5.1 [facility] Comment on above: Performed By: #### B 2 GLYPROT XOCHITL, FACTOR II DNA, HOMOCYS PL, FACV LEIDM, PROCF, LIPA, LUPANTCOAG, PROT S FUN, METH, CARDIO GMA, AT3 DEF PROFILE #### [facility] , #### [id number], CBC, PHOS, BMP, FE PRO, MG #### [address] Sodium [Moles/Vol] 131 mmol/L Low 136-146 [facility] Comment on above: Performed By: #### B 2 GLYPROT XOCHITL, FACTOR II DNA, HOMOCYS PL, FACV LEIDM, PROCF, LIPA, LUPANTCOAG, PROT S FUN, METH, CARDIO GMA, AT3 DEF PROFILE #### [facility] , #### [id number], CBC, PHOS, BMP, FE PRO, MG #### [address] Urea nitrogen [Mass/Vol] 25 mg/dL High 9-23 [facility] Comment on above: Performed By: #### B 2 GLYPROT XOCHITL, FACTOR II DNA, HOMOCYS PL, FACV LEIDM, PROCF, LIPA, LUPANTCOAG, PROT S FUN, METH, CARDIO GMA, AT3 DEF PROFILE #### [facility] , #### [id number], CBC, PHOS, BMP, FE PRO, MG #### [facility] [address] [place] [id number] [facility] COVID-19 Antigenon 1 COVID-19 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 This Kate Disclaimer test has not [...] is terminated or revoked sooner. PERFORMED BY: [place] [address] PATHOLOGIST MOLD UNLOADER TOBY GRACIA M.D. Normal [facility] Comment on above: Performed By: #### B 2 GLYPROT XOCHITL, FACTOR II DNA, HOMOCYS PL, FACV LEIDM, PROCF, LIPA, LUPANTCOAG, PROT S FUN, METH, CARDIO GMA, AT3 DEF PROFILE #### [facility] , #### [id number], CBC, PHOS, BMP, FE PRO, MG #### [facility] [address] COVID-19 [facility] [place] SARS-CoV-2 (COVID-19) RNA MOLLY+probe Ql (Unsp spec) Negative Normal Negative [facility] Comment on above: Order Comment: PT IS NON FASTING Result Comment: Test ing for SARS-CoV-2 by RT-PCR This test was developed and its performance characteristics determined by [employer] and validated at the [facility]. This test has not been FDA [...] is terminated or revoked sooner. PERFORMED BY: [place] [address] PATHOLOGIST MOLD UNLOADER TOBY GRACIA M.D. Performed By: #### B 2 GLYPROT XOCHITL, FACTOR II DNA, HOMOCYS PL, FACV LEIDM, PROCF, LIPA, LUPANTCOAG, PROT S FUN, METH, CARDIO GMA, AT3 DEF PROFILE #### [facility] , #### [id number], CBC, PHOS, BMP, FE PRO, MG #### [address] Complete Blood Count Auto Di ffon 09-14-2020 Basophils (Bld) [#/Vol] 0.1 10*3/uL Normal 0.0-0.2 [facility] Comment on above: Result Comment: PERF ORMED BY: [place] [address] PATHOLOGIST MOLD UNLOADER TOBY GRACIA M.D. Performed By: #### B 2 GLYPROT XOCHITL, FACTOR II DNA, HOMOCYS PL, FACV LEIDM, PROCF, LIPA, LUPANTCOAG, PROT S FUN, METH, CARDIO GMA, AT3 DEF PROFILE #### [facility] , #### [id number], CBC, PHOS, BMP, FE PRO, MG #### [address] Basophils/100 WBC (Bld) 1.1 % Normal . [facility] Comment on above: Performed By: #### B 2 GLYPROT XOCHITL, FACTOR II DNA, HOMOCYS PL, FACV LEIDM, PROCF, LIPA, LUPANTCOAG, PROT S FUN, METH, CARDIO GMA, AT3 DEF PROFILE #### [facility] , #### [id number], CBC, PHOS, BMP, FE PRO, MG #### [facility] [address] [place] [address] Eosinophils (Bld) [#/Vol] 0.4 10*3/uL Normal 0.0-0.45 [facility] Comment on above: Performed By: #### B 2 GLYPROT XOCHITL, FACTOR II DNA, HOMOCYS PL, FACV LEIDM, PROCF, LIPA, LUPANTCOAG, PROT S FUN, METH, CARDIO GMA, AT3 DEF PROFILE #### [facility] , #### [id number], CBC, PHOS, BMP, FE PRO, MG #### [address] Eosinophils/100 WBC (Bld) 3.2 % Normal . [facility] Comment on above: Performed By: #### B 2 GLYPROT XOCHITL, FACTOR II DNA, HOMOCYS PL, FACV LEIDM, PROCF, LIPA, LUPANTCOAG, PROT S FUN, METH, CARDIO GMA, AT3 DEF PROFILE #### [facility] , #### [id number], CBC, PHOS, BMP, FE PRO, MG #### [address] Erythrocyte distribution width (RBC) [Ratio] 13.5 % Normal 12.0-14.8 [facility] Comment on above: Performed By: #### B 2 GLYPROT XOCHITL, FACTOR II DNA, HOMOCYS PL, FACV LEIDM, PROCF, LIPA, LUPANTCOAG, PROT S FUN, METH, CARDIO GMA, AT3 DEF PROFILE #### [facility] , #### [id number], CBC, PHOS, BMP, FE PRO, MG #### [address] Hematocrit (Bld) [Volume fraction] 44.2 % Normal 38.8-50.0 [facility] Comment on above: Performed By: #### B 2 GLYPROT XOCHITL, FACTOR II DNA, HOMOCYS PL, FACV LEIDM, PROCF, LIPA, LUPANTCOAG, PROT S FUN, METH, CARDIO GMA, AT3 DEF PROFILE #### [facility] , #### [id number], CBC, PHOS, BMP, FE PRO, MG #### [address] Hemoglobin (Bld) [Mass/Vol] 15.1 g/dL Normal 13.0-17.0 [facility] Comment on above: Performed By: #### B 2 GLYPROT XOCHITL, FACTOR II DNA, HOMOCYS PL, FACV LEIDM, PROCF, LIPA, LUPANTCOAG, PROT S FUN, METH, CARDIO GMA, AT3 DEF PROFILE #### [facility] , #### [id number], CBC, PHOS, BMP, FE PRO, MG #### [address] Lymphocytes (Bld) [#/Vol] 2.2 10*3/uL Normal 1.00-4.8 [facility] Comment on above: Performed By: #### B 2 GLYPROT XOCHITL, FACTOR II DNA, HOMOCYS PL, FACV LEIDM, PROCF, LIPA, LUPANTCOAG, PROT S FUN, METH, CARDIO GMA, AT3 DEF PROFILE #### [facility] , #### [id number], CBC, PHOS, BMP, FE PRO, MG #### [address] Lymphocytes/100 WBC (Bld) 19.4 % Normal . [facility] Comment on above: Performed By: #### B 2 GLYPROT XOCHITL, FACTOR II DNA, HOMOCYS PL, FACV LEIDM, PROCF, LIPA, LUPANTCOAG, PROT S FUN, METH, CARDIO GMA, AT3 DEF PROFILE #### [facility] , #### [id number], CBC, PHOS, BMP, FE PRO, MG #### [address] MCH (RBC) [Entitic mass] 31.5 pg Normal 27.5-35.2 [facility] Comment on above: Performed By: #### B 2 GLYPROT XOCHITL, FACTOR II DNA, HOMOCYS PL, FACV LEIDM, PROCF, LIPA, LUPANTCOAG, PROT S FUN, METH, CARDIO GMA, AT3 DEF PROFILE #### [facility] , #### [id number], CBC, PHOS, BMP, FE PRO, MG #### [address] MCV (RBC) [Entitic vol] 91.9 fL Normal 83.5-101 [facility] Comment on above: Performed By: #### B 2 GLYPROT XOCHITL, FACTOR II DNA, HOMOCYS PL, FACV LEIDM, PROCF, LIPA, LUPANTCOAG, PROT S FUN, METH, CARDIO GMA, AT3 DEF PROFILE #### [facility] , #### [id number], CBC, PHOS, BMP, FE PRO, MG #### [address] Mean Corpuscular HGB Conc 34.3 g/dL Normal 32.5-35.6 [facility] Comment on above: Performed By: #### B 2 GLYPROT XOCHITL, FACTOR II DNA, HOMOCYS PL, FACV LEIDM, PROCF, LIPA, LUPANTCOAG, PROT S FUN, METH, CARDIO GMA, AT3 DEF PROFILE #### [facility] , #### [id number], CBC, PHOS, BMP, FE PRO, MG #### [facility] [address] [place] [address] [place] Monocytes (Bld) [#/Vol] 1.3 10*3/uL High 0.0-0.8 [facility] Comment on above: Performed By: #### B 2 GLYPROT XOCHITL, FACTOR II DNA, HOMOCYS PL, FACV LEIDM, PROCF, LIPA, LUPANTCOAG, PROT S FUN, METH, CARDIO GMA, AT3 DEF PROFILE #### [facility] , #### [id number], CBC, PHOS, BMP, FE PRO, MG #### [facility] [address] [place] [address] [place] Monocytes/100 WBC (Bld) 11.2 % Normal . [facility] Comment on above: Performed By: #### B 2 GLYPROT XOCHITL, FACTOR II DNA, HOMOCYS PL, FACV LEIDM, PROCF, LIPA, LUPANTCOAG, PROT S FUN, METH, CARDIO GMA, AT3 DEF PROFILE #### [facility] , #### [id number], CBC, PHOS, BMP, FE PRO, MG #### [place] [address] [place] Neutrophils (Bld) [#/Vol] 7.4 10*3/uL Normal 1.8-7.7 [facility] Comment on above: Performed By: #### B 2 GLYPROT XOCHITL, FACTOR II DNA, HOMOCYS PL, FACV LEIDM, PROCF, LIPA, LUPANTCOAG, PROT S FUN, METH, CARDIO GMA, AT3 DEF PROFILE #### [facility] , #### [id number], CBC, PHOS, BMP, FE PRO, MG #### [facility] [address] [place] [address] [place] Neutrophils/100 WBC (Bld) 65.1 % Normal . [facility] Comment on above: Performed By: #### B 2 GLYPROT XOCHITL, FACTOR II DNA, HOMOCYS PL, FACV LEIDM, PROCF, LIPA, LUPANTCOAG, PROT S FUN, METH, CARDIO GMA, AT3 DEF PROFILE #### [facility] , #### [id number], CBC, PHOS, BMP, FE PRO, MG #### [address] Nucleated RBC/100 WBC (Bld) [Ratio] 0.2 % Normal 0-0.5 [facility] Comment on above: Performed By: #### B 2 GLYPROT XOCHITL, FACTOR II DNA, HOMOCYS PL, FACV LEIDM, PROCF, LIPA, LUPANTCOAG, PROT S FUN, METH, CARDIO GMA, AT3 DEF PROFILE #### [facility] , #### [id number], CBC, PHOS, BMP, FE PRO, MG #### [address] Platelet mean volume (Bld) [Entitic vol] 10.3 fL High 6.6-10.1 [facility] Comment on above: Performed By: #### B 2 GLYPROT XOCHITL, FACTOR II DNA, HOMOCYS PL, FACV LEIDM, PROCF, LIPA, LUPANTCOAG, PROT S FUN, METH, CARDIO GMA, AT3 DEF PROFILE #### [facility] , #### [id number], CBC, PHOS, BMP, FE PRO, MG #### [address] Platelets (Bld) [#/Vol] 314 10*3/uL Normal 150-450 [facility] Comment on above: Performed By: #### B 2 GLYPROT XOCHITL, FACTOR II DNA, HOMOCYS PL, FACV LEIDM, PROCF, LIPA, LUPANTCOAG, PROT S FUN, METH, CARDIO GMA, AT3 DEF PROFILE #### [facility] , #### [id number], CBC, PHOS, BMP, FE PRO, MG #### [address] RBC (Bld) [#/Vol] 4.81 10*6/uL Normal 3.90-5.60 [facility] Comment on above: Performed By: #### B 2 GLYPROT XOCHITL, FACTOR II DNA, HOMOCYS PL, FACV LEIDM, PROCF, LIPA, LUPANTCOAG, PROT S FUN, METH, CARDIO GMA, AT3 DEF PROFILE #### [facility] , #### [id number], CBC, PHOS, BMP, FE PRO, MG #### [facility] [address] [place] [address] WBC (Bld) [#/Vol] 11.4 10*3/uL High 4.5-11.0 [facility] Comment on above: Performed By: #### B 2 GLYPROT XOCHITL, FACTOR II DNA, HOMOCYS PL, FACV LEIDM, PROCF, LIPA, LUPANTCOAG, PROT S FUN, METH, CARDIO GMA, AT3 DEF PROFILE #### [facility] , #### [id number], CBC, PHOS, BMP, FE PRO, MG #### [address] Cortisolon 09-14-2020 Cortisol 5.9 ug/dL Normal [facility] Comment on above: Result Comment: Refe rence range: AM 6 - 24 ug/dl PM <10 ug/dl PERFORMED BY: [place] [address] PATHOLOGIST MOLD UNLOADER TOBY GRACIA M.D. Performed By: #### B 2 GLYPROT XOCHITL, FACTOR II DNA, HOMOCYS PL, FACV LEIDM, PROCF, LIPA, LUPANTCOAG, PROT S FUN, METH, CARDIO GMA, AT3 DEF PROFILE #### [facility] , #### [id number], CBC, PHOS, BMP, FE PRO, MG #### [facility] [address] [place] [address] ECG 12 lead ECGon 09-14-2020 ECG 12 lead ECG [facility] [place] [address] [place] [address] Electrocardiograph Report Signed Patient: Don Elkins MR#: [id number] : 1950 Acct:[id number] Age/Sex: 70 / M ADM Date: 09/14/20 Loc: 3T Room: [address] [place] [address] Type: ADM IN Attending Dr: Carloz Roe [...] Inferior leads Confirmed by Nando Sandoval DO ([id number]) on 09/15/2020 10:03:14 AM Referred By: Electronically Signed By:Nando Sandoval DO Transcribed By: MUS Dictated By: Nando Sandoval DO 09/14/20 1757 Signed By: 09/15/20 1003 [facility] Hepatic Panelon 09-14-2020 Albumin [Mass/Vol] 3.2 g/dL Normal 3.2-5.5 [facility] Comment on above: Performed By: #### B 2 GLYPROT XOCHITL, FACTOR II DNA, HOMOCYS PL, FACV LEIDM, PROCF, LIPA, LUPANTCOAG, PROT S FUN, METH, CARDIO GMA, AT3 DEF PROFILE #### [facility] , #### [id number], CBC, PHOS, BMP, FE PRO, MG #### [facility] [address] Albumin/Globulin [Mass ratio] 1.1 {ratio} [facility] Comment on above: Performed By: #### B 2 GLYPROT XOCHITL, FACTOR II DNA, HOMOCYS PL, FACV LEIDM, PROCF, LIPA, LUPANTCOAG, PROT S FUN, METH, CARDIO GMA, AT3 DEF PROFILE #### [facility] , #### [id number], CBC, PHOS, BMP, FE PRO, MG #### [address] ALP [Catalytic activity/Vol] 48 U/L Normal 32-92 [facility] Comment on above: Performed By: #### B 2 GLYPROT XOCHITL, FACTOR II DNA, HOMOCYS PL, FACV LEIDM, PROCF, LIPA, LUPANTCOAG, PROT S FUN, METH, CARDIO GMA, AT3 DEF PROFILE #### [facility] , #### [id number], CBC, PHOS, BMP, FE PRO, MG #### [address] ALT [Catalytic activity/Vol] 111 U/L High 10-60 [facility] Comment on above: Performed By: #### B 2 GLYPROT XOCHITL, FACTOR II DNA, HOMOCYS PL, FACV LEIDM, PROCF, LIPA, LUPANTCOAG, PROT S FUN, METH, CARDIO GMA, AT3 DEF PROFILE #### [facility] , #### [id number], CBC, PHOS, BMP, FE PRO, MG #### [address] AST [Catalytic activity/Vol] 41 U/L Normal 10-42 [facility] Comment on above: Performed By: #### B 2 GLYPROT XOCHITL, FACTOR II DNA, HOMOCYS PL, FACV LEIDM, PROCF, LIPA, LUPANTCOAG, PROT S FUN, METH, CARDIO GMA, AT3 DEF PROFILE #### [facility] , #### [id number], CBC, PHOS, BMP, FE PRO, MG #### [address] Bilirubin [Mass/Vol] 1.2 mg/dL Normal 0.3-1.2 [facility] Comment on above: Performed By: #### B 2 GLYPROT XOCHITL, FACTOR II DNA, HOMOCYS PL, FACV LEIDM, PROCF, LIPA, LUPANTCOAG, PROT S FUN, METH, CARDIO GMA, AT3 DEF PROFILE #### [facility] , #### [id number], CBC, PHOS, BMP, FE PRO, MG #### [address] Bilirubin,Indirec t 1.0 mg/dL Normal [facility] Comment on above: Performed By: #### B 2 GLYPROT XOCHITL, FACTOR II DNA, HOMOCYS PL, FACV LEIDM, PROCF, LIPA, LUPANTCOAG, PROT S FUN, METH, CARDIO GMA, AT3 DEF PROFILE #### [facility] , #### [id number], CBC, PHOS, BMP, FE PRO, MG #### [address] Bilirubin.indirec t [Mass/Vol] 0.2 mg/dL Normal 0.0-0.4 [facility] Comment on above: Performed By: #### B 2 GLYPROT XOCHITL, FACTOR II DNA, HOMOCYS PL, FACV LEIDM, PROCF, LIPA, LUPANTCOAG, PROT S FUN, METH, CARDIO GMA, AT3 DEF PROFILE #### [facility] , #### [id number], CBC, PHOS, BMP, FE PRO, MG #### [address] Globulin (S) [Mass/Vol] 2.9 g/dL Normal [facility] Comment on above: Performed By: #### B 2 GLYPROT XOCHITL, FACTOR II DNA, HOMOCYS PL, FACV LEIDM, PROCF, LIPA, LUPANTCOAG, PROT S FUN, METH, CARDIO GMA, AT3 DEF PROFILE #### [facility] , #### [id number], CBC, PHOS, BMP, FE PRO, MG #### [address] Protein [Mass/Vol] 6.1 g/dL Normal 6.1-7.9 [facility] Comment on above: Performed By: #### B 2 GLYPROT XOCHITL, FACTOR II DNA, HOMOCYS PL, FACV LEIDM, PROCF, LIPA, LUPANTCOAG, PROT S FUN, METH, CARDIO GMA, AT3 DEF PROFILE #### [facility] , #### [id number], CBC, PHOS, BMP, FE PRO, MG #### [address] Lactic Acidon 09-14-2020 Lactate [Moles/Vol] 2.5 mmol/L Off scale high 0.5-2.2 [facility] Comment on above: Result Comment: Crit ical value result called at 1847 on 09/14/20 PERFORMED BY: [place] [address] PATHOLOGIST MOLD UNLOADER TOBY GRACIA M.D. Performed By: #### B 2 GLYPROT XOCHITL, FACTOR II DNA, HOMOCYS PL, FACV LEIDM, PROCF, LIPA, LUPANTCOAG, PROT S FUN, METH, CARDIO GMA, AT3 DEF PROFILE #### [facility] , #### [id number], CBC, PHOS, BMP, FE PRO, MG #### [place] [id number] [facility] Lipaseon 09-14-2020 Lipase [Catalytic activity/Vol] 145.0 U/L High 22-51 [facility] Comment on above: Result Comment: PERF ORMED BY: [place] [address] PATHOLOGIST MOLD UNLOADER TOBY GRACIA M.D. Performed By: #### B 2 GLYPROT XOCHITL, FACTOR II DNA, HOMOCYS PL, FACV LEIDM, PROCF, LIPA, LUPANTCOAG, PROT S FUN, METH, CARDIO GMA, AT3 DEF PROFILE #### [facility] , #### [id number], CBC, PHOS, BMP, FE PRO, MG #### [facility] [address] Magnesiumon 09-14-2020 Magnesium [Mass/Vol] 1.7 mg/dL Normal 1.6-2.6 [facility] Comment on above: Performed By: #### B 2 GLYPROT XOCHITL, FACTOR II DNA, HOMOCYS PL, FACV LEIDM, PROCF, LIPA, LUPANTCOAG, PROT S FUN, METH, CARDIO GMA, AT3 DEF PROFILE #### [facility] , #### [id number], CBC, PHOS, BMP, FE PRO, MG #### [address] Kate Ag Negativeon 09-15-19 21 Kate Ag Negative Negative Normal Negative [facility] Comment on above: Result Comment: This is a duplicate Kate SARS Antigen (ADORE) result to be used for statistical tracking purpose only. PERFORMED BY: [place] [address] PATHOLOGIST MOLD UNLOADER TOBY GRACIA M.D. Performed By: #### B 2 GLYPROT XOCHITL, FACTOR II DNA, HOMOCYS PL, FACV LEIDM, PROCF, LIPA, LUPANTCOAG, PROT S FUN, METH, CARDIO GMA, AT3 DEF PROFILE #### [facility] , #### [id number], CBC, PHOS, BMP, FE PRO, MG #### [address] Basic Metabolic Panelon 08-18 Calcium [Mass/Vol] 9.3 mg/dL Normal 8.2-10.2 [facility] Comment on above: Performed By: #### B 2 GLYPROT XOCHITL, FACTOR II DNA, HOMOCYS PL, FACV LEIDM, PROCF, LIPA, LUPANTCOAG, PROT S FUN, METH, CARDIO GMA, AT3 DEF PROFILE #### [facility] , #### [id number], CBC, PHOS, BMP, FE PRO, MG #### [facility] [address] [place] [address] Chloride [Moles/Vol] 98 mmol/L Normal 95-114 [facility] Comment on above: Performed By: #### B 2 GLYPROT XOCHITL, FACTOR II DNA, HOMOCYS PL, FACV LEIDM, PROCF, LIPA, LUPANTCOAG, PROT S FUN, METH, CARDIO GMA, AT3 DEF PROFILE #### [facility] , #### [id number], CBC, PHOS, BMP, FE PRO, MG #### [facility] [address] [place] [address] CO2 [Moles/Vol] 24.1 mmol/L Normal 22.0-30.0 [facility] Comment on above: Performed By: #### B 2 GLYPROT XOCHITL, FACTOR II DNA, HOMOCYS PL, FACV LEIDM, PROCF, LIPA, LUPANTCOAG, PROT S FUN, METH, CARDIO GMA, AT3 DEF PROFILE #### [facility] , #### [id number], CBC, PHOS, BMP, FE PRO, MG #### [address] Creatinine [Mass/Vol] 1.53 mg/dL High 0.64-1.27 [facility] Comment on above: Performed By: #### B 2 GLYPROT XOCHITL, FACTOR II DNA, HOMOCYS PL, FACV LEIDM, PROCF, LIPA, LUPANTCOAG, PROT S FUN, METH, CARDIO GMA, AT3 DEF PROFILE #### [facility] , #### [id number], CBC, PHOS, BMP, FE PRO, MG #### [facility] [address] [place] [address] Creatinine Clr Calc Pharmacy 54.38 Normal [facility] Comment on above: Performed By: #### B 2 GLYPROT XOCHITL, FACTOR II DNA, HOMOCYS PL, FACV LEIDM, PROCF, LIPA, LUPANTCOAG, PROT S FUN, METH, CARDIO GMA, AT3 DEF PROFILE #### [facility] , #### [id number], CBC, PHOS, BMP, FE PRO, MG #### [facility] [address] [place] [address] Estimated GFR ( Gabriela 55 [facility] Comment on above: Result Comment: GFR estimated reference range: According to KDOQI guidelines, <60 ml/min/1.73m2 is sufficient to diagnose a patient with chronic kidney disease. Performed By: #### B 2 GLYPROT XOCHITL, FACTOR II DNA, HOMOCYS PL, FACV LEIDM, PROCF, LIPA, LUPANTCOAG, PROT S FUN, METH, CARDIO GMA, AT3 DEF PROFILE #### [facility] , #### [id number], CBC, PHOS, BMP, FE PRO, MG #### [address] Estimated GFR (Non- Am 45 [facility] Comment on above: Performed By: #### B 2 GLYPROT XOCHITL, FACTOR II DNA, HOMOCYS PL, FACV LEIDM, PROCF, LIPA, LUPANTCOAG, PROT S FUN, METH, CARDIO GMA, AT3 DEF PROFILE #### [facility] , #### [id number], CBC, PHOS, BMP, FE PRO, MG #### [address] Glucose [Mass/Vol] 200 mg/dL High 70-100 [facility] Comment on above: Result Comment: [place] Glucose Reference Range is dependent on time and content of last meal. Glucose of more than 200 mg/dL in a nonstressed, ambulatory subject supports the diagnosis of Diabetes Mellitus. ADA recommended reference range Performed By: #### B 2 GLYPROT XOCHITL, FACTOR II DNA, HOMOCYS PL, FACV LEIDM, PROCF, LIPA, LUPANTCOAG, PROT S FUN, METH, CARDIO GMA, AT3 DEF PROFILE #### [facility] , #### [id number], CBC, PHOS, BMP, FE PRO, MG #### [address] Potassium [Moles/Vol] 4.4 mmol/L Normal 3.5-5.1 [facility] Comment on above: Performed By: #### B 2 GLYPROT XOCHITL, FACTOR II DNA, HOMOCYS PL, FACV LEIDM, PROCF, LIPA, LUPANTCOAG, PROT S FUN, METH, CARDIO GMA, AT3 DEF PROFILE #### [facility] , #### [id number], CBC, PHOS, BMP, FE PRO, MG #### [facility] [address] [place] [address] Sodium [Moles/Vol] 135 mmol/L Low 136-146 [facility] Comment on above: Performed By: #### B 2 GLYPROT XOCHITL, FACTOR II DNA, HOMOCYS PL, FACV LEIDM, PROCF, LIPA, LUPANTCOAG, PROT S FUN, METH, CARDIO GMA, AT3 DEF PROFILE #### [facility] , #### [id number], CBC, PHOS, BMP, FE PRO, MG #### [facility] [address] [place] [address] Urea nitrogen [Mass/Vol] 16 mg/dL Normal 9-23 [facility] Comment on above: Performed By: #### B 2 GLYPROT XOCHITL, FACTOR II DNA, HOMOCYS PL, FACV LEIDM, PROCF, LIPA, LUPANTCOAG, PROT S FUN, METH, CARDIO GMA, AT3 DEF PROFILE #### [facility] , #### [id number], CBC, PHOS, BMP, FE PRO, MG #### [facility] [address] [place] [address] COVID-19 Antigenon 1 COVID-19 Antigen Healthcare Worker?: N Kaet Reference Kate Reference Negative SARS-CoV+SARS-CoV-2 (COVID-19) Ag [...] its performance Kate Disclaimer characteristic determined by [employer] and Kate Disclaimer validated at [facility]. This Kate Disclaimer test has not [...] is terminated or revoked sooner. PERFORMED BY: [place] [address] PATHOLOGIST MOLD UNLOADER TOBY GRACIA M.D. [facility] Comment on above: Performed By: #### B 2 GLYPROT XOCHITL, FACTOR II DNA, HOMOCYS PL, FACV LEIDM, PROCF, LIPA, LUPANTCOAG, PROT S FUN, METH, CARDIO GMA, AT3 DEF PROFILE #### [facility] , #### [id number], CBC, PHOS, BMP, FE PRO, MG #### [facility] [address] [place] [address] CT abdomen pelvis w conon CT abdomen pelvis w con [facility] [place] [address] CT Scan Report Signed Patient: Don Elkins MR#: [id number] : 1950 Acct:[id number] Age/Sex: 70 / M ADM Date: 09/11/20 Loc: ER Room: Type: [facility] ER Attending Dr: Ordering Provider: Michele [...] Corbin Gaxiola M.D.09/11/2020 7:25 PM Dictation Location: [place] [address] Transcribed By: ANDREW 09/11/201924 Dictated By: Corbin Gaxiola MD 09/11/201910 Signed By: 09/11/201924 Normal [facility] Complete Blood Count Auto Di ffon 09-11-2020 Basophils (Bld) [#/Vol] 0.1 10*3/uL Normal 0.0-0.2 [facility] Comment on above: Result Comment: PERF ORMED BY: [place] [address] PATHOLOGIST MOLD UNLOADER TOBY GRACIA M.D. Performed By: #### B 2 GLYPROT XOCHITL, FACTOR II DNA, HOMOCYS PL, FACV LEIDM, PROCF, LIPA, LUPANTCOAG, PROT S FUN, METH, CARDIO GMA, AT3 DEF PROFILE #### [facility] , #### [id number], CBC, PHOS, BMP, FE PRO, MG #### [facility] [address] [place] [address] [place] Basophils/100 WBC (Bld) 1.2 % Normal . [facility] Comment on above: Performed By: #### B 2 GLYPROT XOCHITL, FACTOR II DNA, HOMOCYS PL, FACV LEIDM, PROCF, LIPA, LUPANTCOAG, PROT S FUN, METH, CARDIO GMA, AT3 DEF PROFILE #### [facility] , #### [id number], CBC, PHOS, BMP, FE PRO, MG #### [place] [address] [place] Eosinophils (Bld) [#/Vol] 0.3 10*3/uL Normal 0.0-0.45 [facility] Comment on above: Performed By: #### B 2 GLYPROT XOCHITL, FACTOR II DNA, HOMOCYS PL, FACV LEIDM, PROCF, LIPA, LUPANTCOAG, PROT S FUN, METH, CARDIO GMA, AT3 DEF PROFILE #### [facility] , #### [id number], CBC, PHOS, BMP, FE PRO, MG #### [facility] [address] [place] [address] [place] Eosinophils/100 WBC (Bld) 4.0 % Normal . [facility] Comment on above: Performed By: #### B 2 GLYPROT XOCHITL, FACTOR II DNA, HOMOCYS PL, FACV LEIDM, PROCF, LIPA, LUPANTCOAG, PROT S FUN, METH, CARDIO GMA, AT3 DEF PROFILE #### [facility] , #### [id number], CBC, PHOS, BMP, FE PRO, MG #### [address] Erythrocyte distribution width (RBC) [Ratio] 13.3 % Normal 12.0-14.8 [facility] Comment on above: Performed By: #### B 2 GLYPROT XOCHITL, FACTOR II DNA, HOMOCYS PL, FACV LEIDM, PROCF, LIPA, LUPANTCOAG, PROT S FUN, METH, CARDIO GMA, AT3 DEF PROFILE #### [facility] , #### [id number], CBC, PHOS, BMP, FE PRO, MG #### [address] Hematocrit (Bld) [Volume fraction] 41.6 % Normal 38.8-50.0 [facility] Comment on above: Performed By: #### B 2 GLYPROT XOCHITL, FACTOR II DNA, HOMOCYS PL, FACV LEIDM, PROCF, LIPA, LUPANTCOAG, PROT S FUN, METH, CARDIO GMA, AT3 DEF PROFILE #### [facility] , #### [id number], CBC, PHOS, BMP, FE PRO, MG #### [address] Hemoglobin (Bld) [Mass/Vol] 14.5 g/dL Normal 13.0-17.0 [facility] Comment on above: Performed By: #### B 2 GLYPROT XOCHITL, FACTOR II DNA, HOMOCYS PL, FACV LEIDM, PROCF, LIPA, LUPANTCOAG, PROT S FUN, METH, CARDIO GMA, AT3 DEF PROFILE #### [facility] , #### [id number], CBC, PHOS, BMP, FE PRO, MG #### [address] Lymphocytes (Bld) [#/Vol] 2.2 10*3/uL Normal 1.00-4.8 [facility] Comment on above: Performed By: #### B 2 GLYPROT XOCHITL, FACTOR II DNA, HOMOCYS PL, FACV LEIDM, PROCF, LIPA, LUPANTCOAG, PROT S FUN, METH, CARDIO GMA, AT3 DEF PROFILE #### [facility] , #### [id number], CBC, PHOS, BMP, FE PRO, MG #### [address] Lymphocytes/100 WBC (Bld) 25.8 % Normal . [facility] Comment on above: Performed By: #### B 2 GLYPROT XOCHITL, FACTOR II DNA, HOMOCYS PL, FACV LEIDM, PROCF, LIPA, LUPANTCOAG, PROT S FUN, METH, CARDIO GMA, AT3 DEF PROFILE #### [facility] , #### [id number], CBC, PHOS, BMP, FE PRO, MG #### [address] MCH (RBC) [Entitic mass] 31.5 pg Normal 27.5-35.2 [facility] Comment on above: Performed By: #### B 2 GLYPROT XOCHITL, FACTOR II DNA, HOMOCYS PL, FACV LEIDM, PROCF, LIPA, LUPANTCOAG, PROT S FUN, METH, CARDIO GMA, AT3 DEF PROFILE #### [facility] , #### [id number], CBC, PHOS, BMP, FE PRO, MG #### [address] MCV (RBC) [Entitic vol] 90.8 fL Normal 83.5-101 [facility] Comment on above: Performed By: #### B 2 GLYPROT XOCHITL, FACTOR II DNA, HOMOCYS PL, FACV LEIDM, PROCF, LIPA, LUPANTCOAG, PROT S FUN, METH, CARDIO GMA, AT3 DEF PROFILE #### [facility] , #### [id number], CBC, PHOS, BMP, FE PRO, MG #### [facility] [address] Mean Corpuscular HGB Conc 34.7 g/dL Normal 32.5-35.6 [facility] Comment on above: Performed By: #### B 2 GLYPROT XOCHITL, FACTOR II DNA, HOMOCYS PL, FACV LEIDM, PROCF, LIPA, LUPANTCOAG, PROT S FUN, METH, CARDIO GMA, AT3 DEF PROFILE #### [facility] , #### [id number], CBC, PHOS, BMP, FE PRO, MG #### [address] Monocytes (Bld) [#/Vol] 1.1 10*3/uL High 0.0-0.8 [facility] Comment on above: Performed By: #### B 2 GLYPROT XOCHITL, FACTOR II DNA, HOMOCYS PL, FACV LEIDM, PROCF, LIPA, LUPANTCOAG, PROT S FUN, METH, CARDIO GMA, AT3 DEF PROFILE #### [facility] , #### [id number], CBC, PHOS, BMP, FE PRO, MG #### [address] Monocytes/100 WBC (Bld) 12.4 % Normal . [facility] Comment on above: Performed By: #### B 2 GLYPROT XOCHITL, FACTOR II DNA, HOMOCYS PL, FACV LEIDM, PROCF, LIPA, LUPANTCOAG, PROT S FUN, METH, CARDIO GMA, AT3 DEF PROFILE #### [facility] , #### [id number], CBC, PHOS, BMP, FE PRO, MG #### [facility] [address] [place] [address] Neutrophils (Bld) [#/Vol] 4.8 10*3/uL Normal 1.8-7.7 [facility] Comment on above: Performed By: #### B 2 GLYPROT XOCHITL, FACTOR II DNA, HOMOCYS PL, FACV LEIDM, PROCF, LIPA, LUPANTCOAG, PROT S FUN, METH, CARDIO GMA, AT3 DEF PROFILE #### [facility] , #### [id number], CBC, PHOS, BMP, FE PRO, MG #### [address] Neutrophils/100 WBC (Bld) 56.6 % Normal . [facility] Comment on above: Performed By: #### B 2 GLYPROT XOCHITL, FACTOR II DNA, HOMOCYS PL, FACV LEIDM, PROCF, LIPA, LUPANTCOAG, PROT S FUN, METH, CARDIO GMA, AT3 DEF PROFILE #### [facility] , #### [id number], CBC, PHOS, BMP, FE PRO, MG #### [address] Nucleated RBC/100 WBC (Bld) [Ratio] 0.2 % Normal 0-0.5 [facility] Comment on above: Performed By: #### B 2 GLYPROT XOCHITL, FACTOR II DNA, HOMOCYS PL, FACV LEIDM, PROCF, LIPA, LUPANTCOAG, PROT S FUN, METH, CARDIO GMA, AT3 DEF PROFILE #### [facility] , #### [id number], CBC, PHOS, BMP, FE PRO, MG #### [address] Platelet mean volume (Bld) [Entitic vol] 10.0 fL Normal 6.6-10.1 [facility] Comment on above: Performed By: #### B 2 GLYPROT XOCHITL, FACTOR II DNA, HOMOCYS PL, FACV LEIDM, PROCF, LIPA, LUPANTCOAG, PROT S FUN, METH, CARDIO GMA, AT3 DEF PROFILE #### [facility] , #### [id number], CBC, PHOS, BMP, FE PRO, MG #### [place] [address] [place] Platelets (Bld) [#/Vol] 229 10*3/uL Normal 150-450 [facility] Comment on above: Performed By: #### B 2 GLYPROT XOCHITL, FACTOR II DNA, HOMOCYS PL, FACV LEIDM, PROCF, LIPA, LUPANTCOAG, PROT S FUN, METH, CARDIO GMA, AT3 DEF PROFILE #### [facility] , #### [id number], CBC, PHOS, BMP, FE PRO, MG #### [address] RBC (Bld) [#/Vol] 4.59 10*6/uL Normal 3.90-5.60 [facility] Comment on above: Performed By: #### B 2 GLYPROT XOCHITL, FACTOR II DNA, HOMOCYS PL, FACV LEIDM, PROCF, LIPA, LUPANTCOAG, PROT S FUN, METH, CARDIO GMA, AT3 DEF PROFILE #### [facility] , #### [id number], CBC, PHOS, BMP, FE PRO, MG #### [address] WBC (Bld) [#/Vol] 8.5 10*3/uL Normal 4.5-11.0 [facility] Comment on above: Performed By: #### B 2 GLYPROT XOCHITL, FACTOR II DNA, HOMOCYS PL, FACV LEIDM, PROCF, LIPA, LUPANTCOAG, PROT S FUN, METH, CARDIO GMA, AT3 DEF PROFILE #### [facility] , #### [id number], CBC, PHOS, BMP, FE PRO, MG #### [address] ECG 12 lead ECGon 09-11-2020 ECG 12 lead ECG [facility] [place] [address] Electrocardiograph Report Signed Patient: Don Elkins MR#: [id number] : 1950 Acct:[id number] Age/Sex: 70 / M ADM Date: 09/11/20 Loc: ER Room: Type: [facility] ER Attending Dr: Ordering Provider: Michele [...] was found Confirmed by Michele GAMINO DO ([id number]) on 09/11/2020 7:48:19 PM Referred By: Electronically Signed By:Michele GAMINO DO Transcribed By: MUS Dictated By: Michele Gamino DO 09/11/201738 Signed By: 09/11/201947 [facility] Hepatic Panelon 09-11-2020 Albumin [Mass/Vol] 3.4 g/dL Normal 3.2-5.5 [facility] Comment on above: Performed By: #### B 2 GLYPROT XOCHITL, FACTOR II DNA, HOMOCYS PL, FACV LEIDM, PROCF, LIPA, LUPANTCOAG, PROT S FUN, METH, CARDIO GMA, AT3 DEF PROFILE #### [facility] , #### [id number], CBC, PHOS, BMP, FE PRO, MG #### [facility] [address] [place] [address] Albumin/Globulin [Mass ratio] 1.3 {ratio} [facility] Comment on above: Performed By: #### B 2 GLYPROT XOCHITL, FACTOR II DNA, HOMOCYS PL, FACV LEIDM, PROCF, LIPA, LUPANTCOAG, PROT S FUN, METH, CARDIO GMA, AT3 DEF PROFILE #### [facility] , #### [id number], CBC, PHOS, BMP, FE PRO, MG #### [facility] [address] ALP [Catalytic activity/Vol] 45 U/L Normal 32-92 [facility] Comment on above: Performed By: #### B 2 GLYPROT XOCHITL, FACTOR II DNA, HOMOCYS PL, FACV LEIDM, PROCF, LIPA, LUPANTCOAG, PROT S FUN, METH, CARDIO GMA, AT3 DEF PROFILE #### [facility] , #### [id number], CBC, PHOS, BMP, FE PRO, MG #### [address] ALT [Catalytic activity/Vol] 152 U/L High 10-60 [facility] Comment on above: Performed By: #### B 2 GLYPROT XOCHITL, FACTOR II DNA, HOMOCYS PL, FACV LEIDM, PROCF, LIPA, LUPANTCOAG, PROT S FUN, METH, CARDIO GMA, AT3 DEF PROFILE #### [facility] , #### [id number], CBC, PHOS, BMP, FE PRO, MG #### [address] AST [Catalytic activity/Vol] 64 U/L High 10-42 [facility] Comment on above: Performed By: #### B 2 GLYPROT XOCHITL, FACTOR II DNA, HOMOCYS PL, FACV LEIDM, PROCF, LIPA, LUPANTCOAG, PROT S FUN, METH, CARDIO GMA, AT3 DEF PROFILE #### [facility] , #### [id number], CBC, PHOS, BMP, FE PRO, MG #### [address] Bilirubin [Mass/Vol] 1.6 mg/dL High 0.3-1.2 [facility] Comment on above: Result Comment: Samp [...] AT3 DEF PROFILE #### [facility] , #### [id number], CBC, PHOS, BMP, FE PRO, MG #### [facility] [address] [place] [address] Bilirubin,Indirec t 1.4 mg/dL Normal [facility] Comment on above: Performed By: #### B 2 GLYPROT XOCHITL, FACTOR II DNA, HOMOCYS PL, FACV LEIDM, PROCF, LIPA, LUPANTCOAG, PROT S FUN, METH, CARDIO GMA, AT3 DEF PROFILE #### [facility] , #### [id number], CBC, PHOS, BMP, FE PRO, MG #### [address] Bilirubin.indirec t [Mass/Vol] 0.2 mg/dL Normal 0.0-0.4 [facility] Comment on above: Performed By: #### B 2 GLYPROT XOCHITL, FACTOR II DNA, HOMOCYS PL, FACV LEIDM, PROCF, LIPA, LUPANTCOAG, PROT S FUN, METH, CARDIO GMA, AT3 DEF PROFILE #### [facility] , #### [id number], CBC, PHOS, BMP, FE PRO, MG #### [address] Globulin (S) [Mass/Vol] 2.6 g/dL [facility] Comment on above: Performed By: #### B 2 GLYPROT XOCHITL, FACTOR II DNA, HOMOCYS PL, FACV LEIDM, PROCF, LIPA, LUPANTCOAG, PROT S FUN, METH, CARDIO GMA, AT3 DEF PROFILE #### [facility] , #### [id number], CBC, PHOS, BMP, FE PRO, MG #### [address] Protein [Mass/Vol] 6.0 g/dL Low 6.1-7.9 [facility] Comment on above: Performed By: #### B 2 GLYPROT XOCHITL, FACTOR II DNA, HOMOCYS PL, FACV LEIDM, PROCF, LIPA, LUPANTCOAG, PROT S FUN, METH, CARDIO GMA, AT3 DEF PROFILE #### [facility] , #### [id number], CBC, PHOS, BMP, FE PRO, MG #### [address] Lipaseon 09-11-2020 Lipase [Catalytic activity/Vol] 60.0 U/L High 22- [facility] Comment on above: Result Comment: PERF ORMED BY: [place] [address] PATHOLOGIST MOLD UNLOADER TOBY GRACIA M.D. Performed By: #### B 2 GLYPROT XOCHITL, FACTOR II DNA, HOMOCYS PL, FACV LEIDM, PROCF, LIPA, LUPANTCOAG, PROT S FUN, METH, CARDIO GMA, AT3 DEF PROFILE #### [facility] , #### [id number], CBC, PHOS, BMP, FE PRO, MG #### [address] Partial Thromboplastin Timeo n 09-11-2020 aPTT Coag (Bld) [Time] 32.5 s Normal 25.1-36.5 [facility] Comment on above: Result Comment: PERF ORMED BY: [place] [address] PATHOLOGIST MOLD UNLOADER TOBY GRACIA M.D. Performed By: #### B 2 GLYPROT XOCHITL, FACTOR II DNA, HOMOCYS PL, FACV LEIDM, PROCF, LIPA, LUPANTCOAG, PROT S FUN, METH, CARDIO GMA, AT3 DEF PROFILE #### [facility] , #### [id number], CBC, PHOS, BMP, FE PRO, MG #### [place] [id number] [place] Prothrombin Time INRon 09-11 INR Coag (PPP) [Relative time] 2.0 {INR} Normal [facility] Comment on above: Result Comment: INR [...] AT3 DEF PROFILE #### [facility] , #### [id number], CBC, PHOS, BMP, FE PRO, MG #### [facility] [address] [place] [address] PT Coag (PPP) [Time] 22.4 s High 9.0-12.9 [facility] Comment on above: Performed By: #### B 2 GLYPROT XOCHITL, FACTOR II DNA, HOMOCYS PL, FACV LEIDM, PROCF, LIPA, LUPANTCOAG, PROT S FUN, METH, CARDIO GMA, AT3 DEF PROFILE #### [facility] , #### [id number], CBC, PHOS, BMP, FE PRO, MG #### [facility] [address] [place] [address] Kate Ag Negativeon 09-12-19 21 Kate Ag Negative Negative Normal Negative [facility] Comment on above: Result Comment: This is a duplicate Kate SARS Antigen (ADORE) result to be used for statistical tracking purpose only. PERFORMED BY: [place] [address] PATHOLOGIST MOLD UNLOADER TOBY GRACIA M.D. Performed By: #### B 2 GLYPROT XOCHITL, FACTOR II DNA, HOMOCYS PL, FACV LEIDM, PROCF, LIPA, LUPANTCOAG, PROT S FUN, METH, CARDIO GMA, AT3 DEF PROFILE #### [facility] , #### [id number], CBC, PHOS, BMP, FE PRO, MG #### [address] Troponin I(TnI)on 09-11-2020 Troponin I.cardiac [Mass/Vol] ng/mL Normal 0-0.02 [facility] Comment on above: Result Comment: SHYLA CT Cut off value > or equal to 0.03 ng/mL in conjunction with clinical conditions of myocardial infarction. ([email or web address].org/guidelines) PERFORMED BY: [place] [address] PATHOLOGIST MOLD UNLOADER TOBY GRACIA M.D. Performed By: #### B 2 GLYPROT OXCHITL, FACTOR II DNA, HOMOCYS PL, FACV LEIDM, PROCF, LIPA, LUPANTCOAG, PROT S FUN, METH, CARDIO GMA, AT3 DEF PROFILE #### [facility] , #### [id number], CBC, PHOS, BMP, FE PRO, MG #### [facility] [address] [place] [address] Urinalysison 09-11-2020 Appearance (U) Clear Normal Clear [facility] Comment on above: Order Comment: PT IS NON FASTING Performed By: #### B 2 GLYPROT XOCHITL, FACTOR II DNA, HOMOCYS PL, FACV LEIDM, PROCF, LIPA, LUPANTCOAG, PROT S FUN, METH, CARDIO GMA, AT3 DEF PROFILE #### [facility] , #### [id number], CBC, PHOS, BMP, FE PRO, MG #### [facility] [address] [place] [address] Bilirubin,Urine Negative Normal Negative [facility] Comment on above: Order Comment: PT IS NON FASTING Performed By: #### B 2 GLYPROT XOCHITL, FACTOR II DNA, HOMOCYS PL, FACV LEIDM, PROCF, LIPA, LUPANTCOAG, PROT S FUN, METH, CARDIO GMA, AT3 DEF PROFILE #### [facility] , #### [id number], CBC, PHOS, BMP, FE PRO, MG #### [facility] [address] Color (U) Yellow Normal Yellow [facility] Comment on above: Order Comment: PT IS NON FASTING Performed By: #### B 2 GLYPROT XOCHITL, FACTOR II DNA, HOMOCYS PL, FACV LEIDM, PROCF, LIPA, LUPANTCOAG, PROT S FUN, METH, CARDIO GMA, AT3 DEF PROFILE #### [facility] , #### [id number], CBC, PHOS, BMP, FE PRO, MG #### [address] Glucose Ql (U) Normal Normal Normal [facility] Comment on above: Order Comment: PT IS NON FASTING Performed By: #### B 2 GLYPROT XOCHITL, FACTOR II DNA, HOMOCYS PL, FACV LEIDM, PROCF, LIPA, LUPANTCOAG, PROT S FUN, METH, CARDIO GMA, AT3 DEF PROFILE #### [facility] , #### [id number], CBC, PHOS, BMP, FE PRO, MG #### [facility] [address] [place] [address] Ketones Ql (U) Negative Normal Negative [facility] Comment on above: Order Comment: PT IS NON FASTING Performed By: #### B 2 GLYPROT XOCHITL, FACTOR II DNA, HOMOCYS PL, FACV LEIDM, PROCF, LIPA, LUPANTCOAG, PROT S FUN, METH, CARDIO GMA, AT3 DEF PROFILE #### [facility] , #### [id number], CBC, PHOS, BMP, FE PRO, MG #### [facility] [address] [place] [address] Leukocyte esterase Test strip Ql (U) Negative Normal Negative [facility] Comment on above: Order Comment: PT IS NON FASTING Performed By: #### B 2 GLYPROT XOCHITL, FACTOR II DNA, HOMOCYS PL, FACV LEIDM, PROCF, LIPA, LUPANTCOAG, PROT S FUN, METH, CARDIO GMA, AT3 DEF PROFILE #### [facility] , #### [id number], CBC, PHOS, BMP, FE PRO, MG #### [address] Nitrite,Urine Negative Normal Negative [facility] Comment on above: Order Comment: PT IS NON FASTING Performed By: #### B 2 GLYPROT XOCHITL, FACTOR II DNA, HOMOCYS PL, FACV LEIDM, PROCF, LIPA, LUPANTCOAG, PROT S FUN, METH, CARDIO GMA, AT3 DEF PROFILE #### [facility] , #### [id number], CBC, PHOS, BMP, FE PRO, MG #### [address] Occult Blood,Urine Negative Normal Negative [facility] Comment on above: Order Comment: PT IS NON FASTING Result Comment: PERF ORMED BY: [place] [address] PATHOLOGIST MOLD UNLOADER TOBY GRACIA M.D. Performed By: #### B 2 GLYPROT XOCHITL, FACTOR II DNA, HOMOCYS PL, FACV LEIDM, PROCF, LIPA, LUPANTCOAG, PROT S FUN, METH, CARDIO GMA, AT3 DEF PROFILE #### [facility] , #### [id number], CBC, PHOS, BMP, FE PRO, MG #### [address] pH (U) 5.0 [pH] Normal 5.0-9.0 [facility] Comment on above: Order Comment: PT IS NON FASTING Performed By: #### B 2 GLYPROT XOCHITL, FACTOR II DNA, HOMOCYS PL, FACV LEIDM, PROCF, LIPA, LUPANTCOAG, PROT S FUN, METH, CARDIO GMA, AT3 DEF PROFILE #### [facility] , #### [id number], CBC, PHOS, BMP, FE PRO, MG #### [address] Protein,Urine Negative Normal Negative [facility] Comment on above: Order Comment: PT IS NON FASTING Performed By: #### B 2 GLYPROT XOCHITL, FACTOR II DNA, HOMOCYS PL, FACV LEIDM, PROCF, LIPA, LUPANTCOAG, PROT S FUN, METH, CARDIO GMA, AT3 DEF PROFILE #### [facility] , #### [id number], CBC, PHOS, BMP, FE PRO, MG #### [facility] [address] [place] [address] Specificy [place],Urine 1.026 Normal 1.001-1.030 [facility] Comment on above: Order Comment: PT IS NON FASTING Performed By: #### B 2 GLYPROT XOCHITL, FACTOR II DNA, HOMOCYS PL, FACV LEIDM, PROCF, LIPA, LUPANTCOAG, PROT S FUN, METH, CARDIO GMA, AT3 DEF PROFILE #### [facility] , #### [id number], CBC, PHOS, BMP, FE PRO, MG #### [facility] [address] [place] [address] Urobilinogen,Urin e Normal Normal Normal [facility] Comment on above: Order Comment: PT IS NON FASTING Performed By: #### B 2 GLYPROT XOCHITL, FACTOR II DNA, HOMOCYS PL, FACV LEIDM, PROCF, LIPA, LUPANTCOAG, PROT S FUN, METH, CARDIO GMA, AT3 DEF PROFILE #### [facility] , #### [id number], CBC, PHOS, BMP, FE PRO, MG #### [facility] [address] [place] [address] [place] XR hand BI 3Von 07-26-2020 XR hand BI 3V [facility] [place] [address] XRay Report Signed Patient: Don Elkins MR#: [id number] : 1950 Acct:[id number] Age/Sex: 69 / M ADM Date: 07/26/20 Loc: [facility] Room: Type: [facility] Attending Dr: Tamiko Rivera MD Ordering Provider: [...] Thompson Jr., M.D.07/26/2020 1:18 PM Dictation Location: [place] [address] Transcribed By: [facility] 07/26/20 1318 Dictated By: Cale Thompson Jr, MD 07/26/201310 Signed By: 07/26/20 1318 Normal [facility] Anticardiolipin IgG/M/A, Qno n 07-18-2020 Anticardiolipin Ab, IgA,Qn <9 Normal 0-11 [facility] Comment on above: Order Comment: PT IS NON FASTING Result Comment: Nega tive: <12 Indeterminate: 12 - 20 Low-Med Positive: >20 - 80 High Positive: >80 Performed at: - [facility] [address] [id number] Employment Assistant: Prakash Barbour PhD, Phone: [phone] Performed By: #### B 2 GLYPROT XOCHITL, FACTOR II DNA, HOMOCYS PL, FACV LEIDM, PROCF, LIPA, LUPANTCOAG, PROT S FUN, METH, CARDIO GMA, AT3 DEF PROFILE #### [facility] , #### [id number], CBC, PHOS, BMP, FE PRO, MG #### [facility] [address] [place] [id number] [facility] Anticardiolipin Ab, IgG,Qn <9 Normal 0-14 [facility] Comment on above: Order Comment: PT IS NON FASTING Result Comment: Nega tive: <15 Indeterminate: 15 - 20 Low-Med Positive: >20 - 80 High Positive: >80 Performed By: #### B 2 GLYPROT XOCHITL, FACTOR II DNA, HOMOCYS PL, FACV LEIDM, PROCF, LIPA, LUPANTCOAG, PROT S FUN, METH, CARDIO GMA, AT3 DEF PROFILE #### [facility] , #### [id number], CBC, PHOS, BMP, FE PRO, MG #### [facility] [address] [place] [address] Anticardiolipin Ab, IgM,Qn <9 Normal 0-12 [facility] Comment on above: Order Comment: PT IS NON FASTING Result Comment: Nega tive: <13 Indeterminate: 13 - 20 Low-Med Positive: >20 - 80 High Positive: >80 Performed By: #### B 2 GLYPROT XOCHITL, FACTOR II DNA, HOMOCYS PL, FACV LEIDM, PROCF, LIPA, LUPANTCOAG, PROT S FUN, METH, CARDIO GMA, AT3 DEF PROFILE #### [facility] , #### [id number], CBC, PHOS, BMP, FE PRO, MG #### [facility] [address] [place] [address] Antithrombin Deficiency Prof on 07-18-2020 Anti-Thrombin III Antigen 85 % Normal 72-124 [facility] Comment on above: Order Comment: PT [...] AT3 DEF PROFILE #### [facility] , #### [id number], CBC, PHOS, BMP, FE PRO, MG #### [address] Antithrombin Activity 106 % Normal 75-135 [facility] Comment on above: Order Comment: PT [...] AT3 DEF PROFILE #### [facility] , #### [id number], CBC, PHOS, BMP, FE PRO, MG #### [address] Basic Metabolic Panelon 03-0 Calcium [Mass/Vol] 8.8 mg/dL Normal 8.2-10.2 [facility] Comment on above: Order Comment: PT IS NON FASTING Performed By: #### B 2 GLYPROT XOCHITL, FACTOR II DNA, HOMOCYS PL, FACV LEIDM, PROCF, LIPA, LUPANTCOAG, PROT S FUN, METH, CARDIO GMA, AT3 DEF PROFILE #### [facility] , #### [id number], CBC, PHOS, BMP, FE PRO, MG #### [address] Chloride [Moles/Vol] 96 mmol/L Normal 95-114 [facility] Comment on above: Order Comment: PT IS NON FASTING Performed By: #### B 2 GLYPROT XOCHITL, FACTOR II DNA, HOMOCYS PL, FACV LEIDM, PROCF, LIPA, LUPANTCOAG, PROT S FUN, METH, CARDIO GMA, AT3 DEF PROFILE #### [facility] , #### [id number], CBC, PHOS, BMP, FE PRO, MG #### [address] CO2 [Moles/Vol] 23.9 mmol/L Normal 22.0-30.0 [facility] Comment on above: Order Comment: PT IS NON FASTING Performed By: #### B 2 GLYPROT XOCHITL, FACTOR II DNA, HOMOCYS PL, FACV LEIDM, PROCF, LIPA, LUPANTCOAG, PROT S FUN, METH, CARDIO GMA, AT3 DEF PROFILE #### [facility] , #### [id number], CBC, PHOS, BMP, FE PRO, MG #### [facility] [address] Creatinine [Mass/Vol] 1.31 mg/dL High 0.64-1.27 [facility] Comment on above: Order Comment: PT IS NON FASTING Performed By: #### B 2 GLYPROT XOCHITL, FACTOR II DNA, HOMOCYS PL, FACV LEIDM, PROCF, LIPA, LUPANTCOAG, PROT S FUN, METH, CARDIO GMA, AT3 DEF PROFILE #### [facility] , #### [id number], CBC, PHOS, BMP, FE PRO, MG #### [facility] [address] Estimated GFR ( Gabriela > 60 [facility] Comment on above: Order Comment: PT IS NON FASTING Result Comment: GFR estimated reference range: According to KDOQI guidelines, <60 ml/min/1.73m2 is sufficient to diagnose a patient with chronic kidney disease. Performed By: #### B 2 GLYPROT XOCHITL, FACTOR II DNA, HOMOCYS PL, FACV LEIDM, PROCF, LIPA, LUPANTCOAG, PROT S FUN, METH, CARDIO GMA, AT3 DEF PROFILE #### [facility] , #### [id number], CBC, PHOS, BMP, FE PRO, MG #### [facility] [address] Estimated GFR (Non- Am 54 [facility] Comment on above: Order Comment: PT IS NON FASTING Performed By: #### B 2 GLYPROT XOCHITL, FACTOR II DNA, HOMOCYS PL, FACV LEIDM, PROCF, LIPA, LUPANTCOAG, PROT S FUN, METH, CARDIO GMA, AT3 DEF PROFILE #### [facility] , #### [id number], CBC, PHOS, BMP, FE PRO, MG #### [facility] [address] [place] [address] [place] Glucose [Mass/Vol] 336 mg/dL High 70-100 [facility] Comment on above: Order Comment: PT IS NON FASTING Result Comment: [facility] Glucose Reference Range is dependent on time and content of last meal. Glucose of more than 200 mg/dL in a nonstressed, ambulatory subject supports the diagnosis of Diabetes Mellitus. ADA recommended reference range Performed By: #### B 2 GLYPROT XOCHITL, FACTOR II DNA, HOMOCYS PL, FACV LEIDM, PROCF, LIPA, LUPANTCOAG, PROT S FUN, METH, CARDIO GMA, AT3 DEF PROFILE #### [facility] , #### [id number], CBC, PHOS, BMP, FE PRO, MG #### [facility] [address] [place] [address] Potassium [Moles/Vol] 4.7 mmol/L Normal 3.5-5.1 [facility] Comment on above: Order Comment: PT IS NON FASTING Performed By: #### B 2 GLYPROT XOCHITL, FACTOR II DNA, HOMOCYS PL, FACV LEIDM, PROCF, LIPA, LUPANTCOAG, PROT S FUN, METH, CARDIO GMA, AT3 DEF PROFILE #### [facility] , #### [id number], CBC, PHOS, BMP, FE PRO, MG #### [facility] [address] [place] [address] [place] Sodium [Moles/Vol] 131 mmol/L Low 136-146 [facility] Comment on above: Order Comment: PT IS NON FASTING Performed By: #### B 2 GLYPROT XOCHITL, FACTOR II DNA, HOMOCYS PL, FACV LEIDM, PROCF, LIPA, LUPANTCOAG, PROT S FUN, METH, CARDIO GMA, AT3 DEF PROFILE #### [facility] , #### [id number], CBC, PHOS, BMP, FE PRO, MG #### [facility] [address] [place] [address] [place] Urea nitrogen [Mass/Vol] 22 mg/dL Normal 9-23 [facility] Comment on above: Order Comment: PT IS NON FASTING Performed By: #### B 2 GLYPROT XOCHITL, FACTOR II DNA, HOMOCYS PL, FACV LEIDM, PROCF, LIPA, LUPANTCOAG, PROT S FUN, METH, CARDIO GMA, AT3 DEF PROFILE #### [facility] , #### [id number], CBC, PHOS, BMP, FE PRO, MG #### [facility] [address] [place] [id number] [place] Beta 2 Glycoprotein I Ab IgG Kenna 07-18-2020 Beta 2 Glycoprotein I Ab, IgA <9 Normal 0-25 [facility] Comment on above: Order Comment: PT [...] AT3 DEF PROFILE #### [facility] , #### [id number], CBC, PHOS, BMP, FE PRO, MG #### [facility] [address] [place] [id number] [place] Beta 2 Glycoprotein I Ab, IgG <9 Normal 0-20 [facility] Comment on above: Order Comment: PT [...] AT3 DEF PROFILE #### [facility] , #### [id number], CBC, PHOS, BMP, FE PRO, MG #### [facility] [address] Beta 2 Glycoprotein I Ab, IgM <9 Normal 0-32 [facility] Comment on above: Order Comment: PT IS NON FASTING Result Comment: Resu lt Units: GPI IgM units The reference interval reflects a 3SD or 99th percentile interval, which is thought to represent a potentially clinically significant result in accordance with the International Consensus Statement on the classification criteria for definitive antiphospholipid syndrome (APS). J Thromb Haem 2006;4:295-306. Performed at: [address] [id number] Employment Assistant: Meet Parish MD, Phone: [phone] Performed By: #### B 2 GLYPROT XOCHITL, FACTOR II DNA, HOMOCYS PL, FACV LEIDM, PROCF, LIPA, LUPANTCOAG, PROT S FUN, METH, CARDIO GMA, AT3 DEF PROFILE #### [facility] , #### [id number], CBC, PHOS, BMP, FE PRO, MG #### [facility] [address] Complete Blood Count Auto Di ffon 07-18-2020 Basophils (Bld) [#/Vol] 0.1 10*3/uL Normal 0.0-0.2 [facility] Comment on above: Order Comment: PT IS NON FASTING Result Comment: PERF ORMED BY: [place] [address] PATHOLOGIST MOLD UNLOADER TOBY GRACIA M.D. Performed By: #### B 2 GLYPROT XOCHITL, FACTOR II DNA, HOMOCYS PL, FACV LEIDM, PROCF, LIPA, LUPANTCOAG, PROT S FUN, METH, CARDIO GMA, AT3 DEF PROFILE #### [facility] , #### [id number], CBC, PHOS, BMP, FE PRO, MG #### [facility] [address] [place] [address] Basophils/100 WBC (Bld) 0.8 % Normal . [facility] Comment on above: Order Comment: PT IS NON FASTING Performed By: #### B 2 GLYPROT XOCHITL, FACTOR II DNA, HOMOCYS PL, FACV LEIDM, PROCF, LIPA, LUPANTCOAG, PROT S FUN, METH, CARDIO GMA, AT3 DEF PROFILE #### [facility] , #### [id number], CBC, PHOS, BMP, FE PRO, MG #### [address] Eosinophils (Bld) [#/Vol] 0.2 10*3/uL Normal 0.0-0.45 [facility] Comment on above: Order Comment: PT IS NON FASTING Performed By: #### B 2 GLYPROT XOCHITL, FACTOR II DNA, HOMOCYS PL, FACV LEIDM, PROCF, LIPA, LUPANTCOAG, PROT S FUN, METH, CARDIO GMA, AT3 DEF PROFILE #### [facility] , #### [id number], CBC, PHOS, BMP, FE PRO, MG #### [address] Eosinophils/100 WBC (Bld) 2.2 % Normal . [facility] Comment on above: Order Comment: PT IS NON FASTING Performed By: #### B 2 GLYPROT XOCHITL, FACTOR II DNA, HOMOCYS PL, FACV LEIDM, PROCF, LIPA, LUPANTCOAG, PROT S FUN, METH, CARDIO GMA, AT3 DEF PROFILE #### [facility] , #### [id number], CBC, PHOS, BMP, FE PRO, MG #### [address] Erythrocyte distribution width (RBC) [Ratio] 12.6 % Normal 12.0-14.8 [facility] Comment on above: Order Comment: PT IS NON FASTING Performed By: #### B 2 GLYPROT XOCHITL, FACTOR II DNA, HOMOCYS PL, FACV LEIDM, PROCF, LIPA, LUPANTCOAG, PROT S FUN, METH, CARDIO GMA, AT3 DEF PROFILE #### [facility] , #### [id number], CBC, PHOS, BMP, FE PRO, MG #### [address] Hematocrit (Bld) [Volume fraction] 40.3 % Normal 38.8-50.0 [facility] Comment on above: Order Comment: PT IS NON FASTING Performed By: #### B 2 GLYPROT XOCHITL, FACTOR II DNA, HOMOCYS PL, FACV LEIDM, PROCF, LIPA, LUPANTCOAG, PROT S FUN, METH, CARDIO GMA, AT3 DEF PROFILE #### [facility] , #### [id number], CBC, PHOS, BMP, FE PRO, MG #### [address] Hemoglobin (Bld) [Mass/Vol] 13.9 g/dL Normal 13.0-17.0 [facility] Comment on above: Order Comment: PT IS NON FASTING Performed By: #### B 2 GLYPROT XOCHITL, FACTOR II DNA, HOMOCYS PL, FACV LEIDM, PROCF, LIPA, LUPANTCOAG, PROT S FUN, METH, CARDIO GMA, AT3 DEF PROFILE #### [facility] , #### [id number], CBC, PHOS, BMP, FE PRO, MG #### [address] Lymphocytes (Bld) [#/Vol] 2.0 10*3/uL Normal 1.00-4.8 [facility] Comment on above: Order Comment: PT IS NON FASTING Performed By: #### B 2 GLYPROT XOCHITL, FACTOR II DNA, HOMOCYS PL, FACV LEIDM, PROCF, LIPA, LUPANTCOAG, PROT S FUN, METH, CARDIO GMA, AT3 DEF PROFILE #### [facility] , #### [id number], CBC, PHOS, BMP, FE PRO, MG #### [address] Lymphocytes/100 WBC (Bld) 21.0 % Normal . [facility] Comment on above: Order Comment: PT IS NON FASTING Performed By: #### B 2 GLYPROT XOCHITL, FACTOR II DNA, HOMOCYS PL, FACV LEIDM, PROCF, LIPA, LUPANTCOAG, PROT S FUN, METH, CARDIO GMA, AT3 DEF PROFILE #### [facility] , #### [id number], CBC, PHOS, BMP, FE PRO, MG #### [address] MCH (RBC) [Entitic mass] 31.4 pg Normal 27.5-35.2 [facility] Comment on above: Order Comment: PT IS NON FASTING Performed By: #### B 2 GLYPROT XOCHITL, FACTOR II DNA, HOMOCYS PL, FACV LEIDM, PROCF, LIPA, LUPANTCOAG, PROT S FUN, METH, CARDIO GMA, AT3 DEF PROFILE #### [facility] , #### [id number], CBC, PHOS, BMP, FE PRO, MG #### [address] MCV (RBC) [Entitic vol] 91.1 fL Normal 83.5-101 [facility] Comment on above: Order Comment: PT IS NON FASTING Performed By: #### B 2 GLYPROT XOCHITL, FACTOR II DNA, HOMOCYS PL, FACV LEIDM, PROCF, LIPA, LUPANTCOAG, PROT S FUN, METH, CARDIO GMA, AT3 DEF PROFILE #### [facility] , #### [id number], CBC, PHOS, BMP, FE PRO, MG #### [address] Mean Corpuscular HGB Conc 34.5 g/dL Normal 32.5-35.6 [facility] Comment on above: Order Comment: PT IS NON FASTING Performed By: #### B 2 GLYPROT XOCHITL, FACTOR II DNA, HOMOCYS PL, FACV LEIDM, PROCF, LIPA, LUPANTCOAG, PROT S FUN, METH, CARDIO GMA, AT3 DEF PROFILE #### [facility] , #### [id number], CBC, PHOS, BMP, FE PRO, MG #### [facility] [address] Monocytes (Bld) [#/Vol] 0.7 10*3/uL Normal 0.0-0.8 [facility] Comment on above: Order Comment: PT IS NON FASTING Performed By: #### B 2 GLYPROT XOCHITL, FACTOR II DNA, HOMOCYS PL, FACV LEIDM, PROCF, LIPA, LUPANTCOAG, PROT S FUN, METH, CARDIO GMA, AT3 DEF PROFILE #### [facility] , #### [id number], CBC, PHOS, BMP, FE PRO, MG #### [facility] [address] [place] [address] Monocytes/100 WBC (Bld) 7.0 % Normal . [facility] Comment on above: Order Comment: PT IS NON FASTING Performed By: #### B 2 GLYPROT XOCHITL, FACTOR II DNA, HOMOCYS PL, FACV LEIDM, PROCF, LIPA, LUPANTCOAG, PROT S FUN, METH, CARDIO GMA, AT3 DEF PROFILE #### [facility] , #### [id number], CBC, PHOS, BMP, FE PRO, MG #### [facility] [address] [place] [address] [place] Neutrophils (Bld) [#/Vol] 6.7 10*3/uL Normal 1.8-7.7 [facility] Comment on above: Order Comment: PT IS NON FASTING Performed By: #### B 2 GLYPROT XOCHITL, FACTOR II DNA, HOMOCYS PL, FACV LEIDM, PROCF, LIPA, LUPANTCOAG, PROT S FUN, METH, CARDIO GMA, AT3 DEF PROFILE #### [facility] , #### [id number], CBC, PHOS, BMP, FE PRO, MG #### [facility] [address] [place] [address] Neutrophils/100 WBC (Bld) 69.0 % Normal . [facility] Comment on above: Order Comment: PT IS NON FASTING Performed By: #### B 2 GLYPROT XOCHITL, FACTOR II DNA, HOMOCYS PL, FACV LEIDM, PROCF, LIPA, LUPANTCOAG, PROT S FUN, METH, CARDIO GMA, AT3 DEF PROFILE #### [facility] , #### [id number], CBC, PHOS, BMP, FE PRO, MG #### [address] Nucleated RBC/100 WBC (Bld) [Ratio] 0.2 % Normal 0-0.5 [facility] Comment on above: Order Comment: PT IS NON FASTING Performed By: #### B 2 GLYPROT XOCHITL, FACTOR II DNA, HOMOCYS PL, FACV LEIDM, PROCF, LIPA, LUPANTCOAG, PROT S FUN, METH, CARDIO GMA, AT3 DEF PROFILE #### [facility] , #### [id number], CBC, PHOS, BMP, FE PRO, MG #### [address] Platelet mean volume (Bld) [Entitic vol] 10.7 fL High 6.6-10.1 [facility] Comment on above: Order Comment: PT IS NON FASTING Performed By: #### B 2 GLYPROT XOCHITL, FACTOR II DNA, HOMOCYS PL, FACV LEIDM, PROCF, LIPA, LUPANTCOAG, PROT S FUN, METH, CARDIO GMA, AT3 DEF PROFILE #### [facility] , #### [id number], CBC, PHOS, BMP, FE PRO, MG #### [place] [address] [place] Platelets (Bld) [#/Vol] 201 10*3/uL Normal 150-450 [facility] Comment on above: Order Comment: PT IS NON FASTING Performed By: #### B 2 GLYPROT XOCHITL, FACTOR II DNA, HOMOCYS PL, FACV LEIDM, PROCF, LIPA, LUPANTCOAG, PROT S FUN, METH, CARDIO GMA, AT3 DEF PROFILE #### [facility] , #### [id number], CBC, PHOS, BMP, FE PRO, MG #### [facility] [address] RBC (Bld) [#/Vol] 4.42 10*6/uL Normal 3.90-5.60 [facility] Comment on above: Order Comment: PT IS NON FASTING Performed By: #### B 2 GLYPROT XOCHITL, FACTOR II DNA, HOMOCYS PL, FACV LEIDM, PROCF, LIPA, LUPANTCOAG, PROT S FUN, METH, CARDIO GMA, AT3 DEF PROFILE #### [facility] , #### [id number], CBC, PHOS, BMP, FE PRO, MG #### [facility] [address] WBC (Bld) [#/Vol] 9.7 10*3/uL Normal 4.5-11.0 [facility] Comment on above: Order Comment: PT IS NON FASTING Performed By: #### B 2 GLYPROT XOCHITL, FACTOR II DNA, HOMOCYS PL, FACV LEIDM, PROCF, LIPA, LUPANTCOAG, PROT S FUN, METH, CARDIO GMA, AT3 DEF PROFILE #### [facility] , #### [id number], CBC, PHOS, BMP, FE PRO, MG #### [facility] [address] FE PROon 07-18-2020 % Iron Saturation 27.0 % Normal 20-50 [facility] Comment on above: Order Comment: PT IS NON FASTING Performed By: #### B 2 GLYPROT XOCHITL, FACTOR II DNA, HOMOCYS PL, FACV LEIDM, PROCF, LIPA, LUPANTCOAG, PROT S FUN, METH, CARDIO GMA, AT3 DEF PROFILE #### [facility] , #### [id number], CBC, PHOS, BMP, FE PRO, MG #### [facility] [address] [place] [address] Ferritin [Mass/Vol] 261.0 ng/mL Normal 23.9-336.2 [facility] Comment on above: Order Comment: PT IS NON FASTING Performed By: #### B 2 GLYPROT XOCHITL, FACTOR II DNA, HOMOCYS PL, FACV LEIDM, PROCF, LIPA, LUPANTCOAG, PROT S FUN, METH, CARDIO GMA, AT3 DEF PROFILE #### [facility] , #### [id number], CBC, PHOS, BMP, FE PRO, MG #### [address] Iron [Mass/Vol] 108 ug/dL Normal 40-160 [facility] Comment on above: Order Comment: PT IS NON FASTING Performed By: #### B 2 GLYPROT XOCHITL, FACTOR II DNA, HOMOCYS PL, FACV LEIDM, PROCF, LIPA, LUPANTCOAG, PROT S FUN, METH, CARDIO GMA, AT3 DEF PROFILE #### [facility] , #### [id number], CBC, PHOS, BMP, FE PRO, MG #### [address] Total Iron Binding Capacity 398 ug/dL Normal 255-450 [facility] Comment on above: Order Comment: PT IS NON FASTING Performed By: #### B 2 GLYPROT XOCHITL, FACTOR II DNA, HOMOCYS PL, FACV LEIDM, PROCF, LIPA, LUPANTCOAG, PROT S FUN, METH, CARDIO GMA, AT3 DEF PROFILE #### [facility] , #### [id number], CBC, PHOS, BMP, FE PRO, MG #### [address] Transferrin [Mass/Vol] 284 mg/dL Normal 180-380 [facility] Comment on above: Order Comment: PT IS NON FASTING Performed By: #### B 2 GLYPROT XOCHITL, FACTOR II DNA, HOMOCYS PL, FACV LEIDM, PROCF, LIPA, LUPANTCOAG, PROT S FUN, METH, CARDIO GMA, AT3 DEF PROFILE #### [facility] , #### [id number], CBC, PHOS, BMP, FE PRO, MG #### [facility] [address] [place] [id number] [facility] Factor II DNA Analysison Factor II, DNA Analysis Normal . [facility] Comment on above: Order Comment: PT IS NON FASTING Result Comment: NEGA TIVE No mutation identified. Comment: A point mutation ([id number]) in the factor II (prothrombin) gene is [...] mutations. This assay detects only the prothrombin [id number] mutation and does not measure genetic abnormalities [...] health care providers to discuss results at [phone] Methodology: DNA analysis of the Factor II gene was performed by PCR amplification followed by restriction analysis. The diagnostic sensitivity is >99% for both. All the tests must be combined with clinical information for the most accurate interpretation. Molecular-based testing is highly accurate, but as in any laboratory test, diagnostic errors may occur. This test was developed and its performance characteristics determined by [facility]. It has not been cleared or approved by the Food and Drug Administration. Poort SR, et al. Blood. 1996; 88:1312-9374. Arabella GILLIAM. Circulation. 2004; 110:e15-e18. Wanda I, et al. Arterioscler Thromb Vasc Biol. 1999; 19:700-703. Oanh Preciado, PhD, FAC Marj Rosales, PhD, FACMG Mar Hernández, PhD, FACMG Ibeth Turk, PhD, FACMG Bree Arroyo, PhD, FAC Amado Sanchez, PhD, FAC Performed at: [facility] [address] [place], [place] [id number] Employment Assistant: Sabra Tariq [facility], Phone: [phone] PERFORMED BY: [place] [address] PATHOLOGIST MOLD UNLOADER TOBY GRACIA M.D. Performed By: #### B 2 GLYPROT XOCHITL, FACTOR II DNA, HOMOCYS PL, FACV LEIDM, PROCF, LIPA, LUPANTCOAG, PROT S FUN, METH, CARDIO GMA, AT3 DEF PROFILE #### [facility] , #### [id number], CBC, PHOS, BMP, FE PRO, MG #### [facility] [address] Factor V Leiden Mutationon 0 07-18-2020 Factor V Leiden Normal . [facility] Comment on above: Order Comment: PT [...] the workup for venous thrombosis include the [id number] mutation in the factor II (prothrombin) gene, protein S and C deficiency, and antithrombin deficiencies. Anticardiolipin antibody and lupus anticoagulant analysis may be appropriate for certain patients, as well as homocysteine levels. Contact your local [facility] for information on how to order additional testing if desired. Genetic counselors are available for health care providers to discuss results at [phone] Methodology: DNA analysis of the Factor V [...] AT3 DEF PROFILE #### [facility] , #### [id number], CBC, PHOS, BMP, FE PRO, MG #### [place] [id number] [facility] Homocysteine, Plasma/Serumon 07-18-2020 Homocysteine, Plasma/Serum 9.6 umol/L Normal 0.0-17.2 [facility] Comment on above: Order Comment: PT IS NON FASTING Result Comment: Perf ormed at: [address] [id number] Employment Assistant: Prakash Barbour PhD, Phone: [phone] Performed By: #### B 2 GLYPROT XOCHITL, FACTOR II DNA, HOMOCYS PL, FACV LEIDM, PROCF, LIPA, LUPANTCOAG, PROT S FUN, METH, CARDIO GMA, AT3 DEF PROFILE #### [facility] , #### [id number], CBC, PHOS, BMP, FE PRO, MG #### [facility] [address] Lipoprotein (a)on 07-18-2020 Lipoprotein a [Mass/Vol] mg/dL Normal <75.0 [facility] Comment on above: Order Comment: PT IS NON FASTING Result Comment: Re sults verified by repeat testing Note: Values greater than or equal to 75.0 nmol/L may indicate an independent risk factor for CHD, but must be evaluated with caution when applied to non- populations due to the influence of genetic factors on Lp(a) across ethnicities. Performed at: [address] [id number] Employment Assistant: Prakash Barbour PhD, Phone: [phone] Performed By: #### B 2 GLYPROT XOCHITL, FACTOR II DNA, HOMOCYS PL, FACV LEIDM, PROCF, LIPA, LUPANTCOAG, PROT S FUN, METH, CARDIO GMA, AT3 DEF PROFILE #### [facility] , #### [id number], CBC, PHOS, BMP, FE PRO, MG #### [facility] [address] [place] [id number] [place] Lupus Anticoagulant Compon 0 07-18-2020 Dilute Prothrombin Time (dPt) 74.8 High 0.0-55.0 [facility] Comment on above: Order Comment: PT IS NON FASTING Performed By: #### B 2 GLYPROT XOCHITL, FACTOR II DNA, HOMOCYS PL, FACV LEIDM, PROCF, LIPA, LUPANTCOAG, PROT S FUN, METH, CARDIO GMA, AT3 DEF PROFILE #### [facility] , #### [id number], CBC, PHOS, BMP, FE PRO, MG #### [facility] [address] [place] [address] dPT Confirm Ratio 0.95 Normal 0.00-1.40 [facility] Comment on above: Order Comment: PT IS NON FASTING Performed By: #### B 2 GLYPROT XOCHITL, FACTOR II DNA, HOMOCYS PL, FACV LEIDM, PROCF, LIPA, LUPANTCOAG, PROT S FUN, METH, CARDIO GMA, AT3 DEF PROFILE #### [facility] , #### [id number], CBC, PHOS, BMP, FE PRO, MG #### [facility] [address] [place] [address] DRVVT Lupus 41.8 Normal 0.0-47.0 [facility] Comment on above: Order Comment: PT IS NON FASTING Performed By: #### B 2 GLYPROT XOCHITL, FACTOR II DNA, HOMOCYS PL, FACV LEIDM, PROCF, LIPA, LUPANTCOAG, PROT S FUN, METH, CARDIO GMA, AT3 DEF PROFILE #### [facility] , #### [id number], CBC, PHOS, BMP, FE PRO, MG #### [facility] [address] [place] [address] Interpretation Comment: Normal . [facility] Comment on above: Order Comment: PT IS NON FASTING Result Comment: No l upus anticoagulant was detected. However, the dPT is markedly extended, as can be seen in patients receiving oral anticoagulant therapy (OAT). In general, OAT can reduce the accuracy of lupus anticoagulant testing and results obtain for patients receiving OAT should be interpreted with caution. Performed at: [address] [id number] Employment Assistant: Meet Parish MD, Phone: [phone] Performed By: #### B 2 GLYPROT XOCHITL, FACTOR II DNA, HOMOCYS PL, FACV LEIDM, PROCF, LIPA, LUPANTCOAG, PROT S FUN, METH, CARDIO GMA, AT3 DEF PROFILE #### [facility] , #### [id number], CBC, PHOS, BMP, FE PRO, MG #### [facility] [address] [place] [address] PTT-LA 32.2 Normal 0.0-51.9 [facility] Comment on above: Order Comment: PT IS NON FASTING Performed By: #### B 2 GLYPROT XOCHITL, FACTOR II DNA, HOMOCYS PL, FACV LEIDM, PROCF, LIPA, LUPANTCOAG, PROT S FUN, METH, CARDIO GMA, AT3 DEF PROFILE #### [facility] , #### [id number], CBC, PHOS, BMP, FE PRO, MG #### [address] Thrombin Time 18.3 Normal 0.0-23.0 [facility] Comment on above: Order Comment: PT IS NON FASTING Performed By: #### B 2 GLYPROT XOCHITL, FACTOR II DNA, HOMOCYS PL, FACV LEIDM, PROCF, LIPA, LUPANTCOAG, PROT S FUN, METH, CARDIO GMA, AT3 DEF PROFILE #### [facility] , #### [id number], CBC, PHOS, BMP, FE PRO, MG #### [address] Magnesiumon 07-18-2020 Magnesium [Mass/Vol] 1.9 mg/dL Normal 1.6-2.6 [facility] Comment on above: Order Comment: PT IS NON FASTING Performed By: #### B 2 GLYPROT XOCHITL, FACTOR II DNA, HOMOCYS PL, FACV LEIDM, PROCF, LIPA, LUPANTCOAG, PROT S FUN, METH, CARDIO GMA, AT3 DEF PROFILE #### [facility] , #### [id number], CBC, PHOS, BMP, FE PRO, MG #### [address] Methylmalonic Acidon 021 Methylmalonic Acid 181 Normal 0-378 [facility] Comment on above: Order Comment: PT IS NON FASTING Performed By: #### B 2 GLYPROT XOCHITL, FACTOR II DNA, HOMOCYS PL, FACV LEIDM, PROCF, LIPA, LUPANTCOAG, PROT S FUN, METH, CARDIO GMA, AT3 DEF PROFILE #### [facility] , #### [id number], CBC, PHOS, BMP, FE PRO, MG #### [facility] [address] Methylmalonic Acid Disclaimer Normal . [facility] Comment on above: Order Comment: PT IS NON FASTING Result Comment: This test was developed and its performance characteristics determined by [employer]. It has not been cleared or approved by the Food and Drug Administration. Performed at: [address] [id number] Employment Assistant: Meet Parish MD, Phone: [phone] Performed By: #### B 2 GLYPROT XOCHITL, FACTOR II DNA, HOMOCYS PL, FACV LEIDM, PROCF, LIPA, LUPANTCOAG, PROT S FUN, METH, CARDIO GMA, AT3 DEF PROFILE #### [facility] , #### [id number], CBC, PHOS, BMP, FE PRO, MG #### [facility] [address] Phosphoruson 07-18-2020 Phosphate [Mass/Vol] 3.7 mg/dL Normal 2.5-4.6 [facility] Comment on above: Order Comment: PT IS NON FASTING Performed By: #### B 2 GLYPROT XOCHITL, FACTOR II DNA, HOMOCYS PL, FACV LEIDM, PROCF, LIPA, LUPANTCOAG, PROT S FUN, METH, CARDIO GMA, AT3 DEF PROFILE #### [facility] , #### [id number], CBC, PHOS, BMP, FE PRO, MG #### [facility] [address] [place] [id number] [place] Protein C Functionalon 07-18 Protein C Functional 33 % Low 73-180 [facility] Comment on above: Order Comment: PT [...] on the clinical scenario. Performed at: - [facility] [id number] Employment Assistant: Meet Parish MD, Phone: [phone] Performed By: #### B 2 GLYPROT XOCHITL, FACTOR II DNA, HOMOCYS PL, FACV LEIDM, PROCF, LIPA, LUPANTCOAG, PROT S FUN, METH, CARDIO GMA, AT3 DEF PROFILE #### [facility] , #### [id number], CBC, PHOS, BMP, FE PRO, MG #### [facility] [address] Protein S Functionalon 07-18 Protein S Functional 49 % Low 63-140 [facility] Comment on above: Order Comment: PT [...] AT3 DEF PROFILE #### [facility] , #### [id number], CBC, PHOS, BMP, FE PRO, MG #### [facility] [address] Vit. B12/Folate Profileon Cobalamin (Vitamin B12) [Mass/Vol] 692 pg/mL Normal 180-914 [facility] Comment on above: Order Comment: PT IS NON FASTING Performed By: #### B 2 GLYPROT XOCHITL, FACTOR II DNA, HOMOCYS PL, FACV LEIDM, PROCF, LIPA, LUPANTCOAG, PROT S FUN, METH, CARDIO GMA, AT3 DEF PROFILE #### [facility] , #### [id number], CBC, PHOS, BMP, FE PRO, MG #### [facility] [address] Folate > 22.3 Normal >5.9 [facility] Comment on above: Order Comment: PT IS NON FASTING Result Comment: Claudine te reference range: >5.9 ng/ml The WHO technical consultation on folate and vitamin b12 deficiencies has determined that folate concentrations less than 4 ng/ml are considered deficient. PERFORMED BY: [facility] [address] [place] [address] PATHOLOGIST MOLD UNLOADER TOBY GRACIA M.D. Performed By: #### B 2 GLYPROT XOCHITL, FACTOR II DNA, HOMOCYS PL, FACV LEIDM, PROCF, LIPA, LUPANTCOAG, PROT S FUN, METH, CARDIO GMA, AT3 DEF PROFILE #### [facility] , #### [id number], CBC, PHOS, BMP, FE PRO, MG #### [facility] [address] [place] [address] [facility] POCT Glucoseon 04-13-2019 Glucose [Mass/Vol] 202 mg/dL Critically high 60-115 [facility] Comment on above: Performed By: #### P GLU #### [facility] [address] [facility] [address] POC Performed on ACCU-CHEK Normal [facility] Comment on above: Performed By: #### P GLU #### [facility] [address] [facility] [address] Glucose [Mass/Vol] 202 mg/dL High 60 - 115 mg/dl [place] Interpretation and review of laboratory results Abnormal [place] Performed on ACCU-CHEK [place] Glucose [Mass/Vol] 223 mg/dL Critically high 60-115 [facility] Comment on above: Performed By: #### P GLU #### [facility] [address] [place] [address] POC Performed on ACCU-CHEK Normal [facility] Comment on above: Performed By: #### P GLU #### [facility] [address] [place] [address] Glucose [Mass/Vol] 223 mg/dL High 60 - 115 mg/dl [place], [place] Interpretation and review of laboratory results Abnormal [place] Performed on ACCU-CHEK [facility] [place] PROTIME-INRon 04-13-2019 INR Coag (PPP) [Relative time] 2.3 {INR} [place] Comment on above: Warfarin Therapy INR Therapeutic: 2.0-3.0 With Mechanical Valve: >2.5 Low-intensity Therapeutic Range: 1.5-2.0 Mod-intensity Therapeutic Range: 2.0-3.0 High-intensity Therapeutic Range: 2.5-3.5 HIgh-intensity Therapeutic Range: 3.0-4.0 Common Critical/Alarm Value: 5.0 Common Upper Limit Reported: 10.0 Effective 11/26/2018: Please note methodology and/or reference ranges have changed. Interpretation and review of laboratory results Abnormal [place], [place] PT Coag (PPP) [Time] 26.5 s High [place], [place] Comment on above: Effective 11/26/18 Please note methodology and/or reference ranges have changed. Prothrombin Timeon 9 INR Coag (PPP) [Relative time] 2.3 {INR} Normal [facility] Comment on above: Result Comment: Warf brian Therapy INR Therapeutic: 2.0-3.0 With Mechanical Valve: >2.5 Low-intensity Therapeutic Range: 1.5-2.0 Mod-intensity Therapeutic Range: 2.0-3.0 High-intensity Therapeutic Range: 2.5-3.5 HIgh-intensity Therapeutic Range: 3.0-4.0 Common Critical/Alarm Value: 5.0 Common Upper Limit Reported: 10.0 Effective 11/26/2018: Please note methodology and/or reference ranges have changed. Performed By: #### P GLU #### [facility] [address] [facility] [address] PT Coag (PPP) [Time] 26.5 s Critically high 12.3-14.9 [facility] Comment on above: Result Comment: Effe ctive 11/26/18 Please note methodology and/or reference ranges have changed. Performed By: #### P GLU #### [facility] [address] [facility] [address] POCT Glucoseon 04-12-2019 Glucose [Mass/Vol] 154 mg/dL Critically high 60-115 [facility] Comment on above: Performed By: #### P GLU #### [facility] [address] [place] [address] POC Performed on ACCU-CHEK Normal [facility] Comment on above: Performed By: #### P GLU #### [facility] [address] [place] [address] Glucose [Mass/Vol] 154 mg/dL High 60 - 115 mg/dl [place] Interpretation and review of laboratory results Abnormal [place] Performed on ACCU-CHEK [place] Glucose [Mass/Vol] 241 mg/dL Critically high 60-115 [facility] Comment on above: Performed By: #### P T #### [facility] [address] [place] [address] POC [facility] on [facility] Comment on above: Performed By: #### P T #### [facility] [address] [place] [address] Glucose [Mass/Vol] 241 mg/dL High 60 - 115 mg/dl [place] Interpretation and review of laboratory results Abnormal [place] Performed on ACCU-CHEK [place] Glucose [Mass/Vol] 194 mg/dL Critically high 60-115 [facility] Comment on above: Performed By: #### P T #### [facility] [address] [place] [address] POC [facility] Comment on above: Performed By: #### P T #### [facility] [address] [place] [address] Glucose [Mass/Vol] 194 mg/dL High 60 - 115 mg/dl [place] Interpretation and review of laboratory results Abnormal [place] Performed on ACCU-CHEK [place] Glucose [Mass/Vol] 228 mg/dL Critically high 60-115 [facility] Comment on above: Performed By: #### P T #### [facility] [address] [place] [address] POC Performed on ACCU-CHEK Normal [facility] Comment on above: Performed By: #### P T #### [facility] [address] [place] [address] Glucose [Mass/Vol] 228 mg/dL High 60 - 115 mg/dl [place] Interpretation and review of laboratory results Abnormal [place] Performed on ACCU-CHEK [place] PROTIME-INRon 04-12-2019 INR Coag (PPP) [Relative time] 2.1 {INR} [place] Comment on above: Warfarin Therapy IN R Therapeutic: 2.0-3.0 With Mechanical Valve: >2.5 Low-intensity Therapeutic Range: 1.5-2.0 Mod-intensity Therapeutic Range: 2.0-3.0 High-intensity Therapeutic Range: 2.5-3.5 HIgh-intensity Therapeutic Range: 3.0-4.0 Common Critical/Alarm Value: 5.0 Common Upper Limit Reported: 10.0 Effective 11/26/2018: Please note methodology and/or reference ranges have changed. Interpretation and review of laboratory results Abnormal [place] PT Coag (PPP) [Time] 24.3 s [place] Comment on above: Effective 11/26/18 Please note methodology and/or reference ranges have changed. Prothrombin Timeon 9 INR Coag (PPP) [Relative time] 2.1 {INR} Normal [facility] Comment on above: Result Comment: Warf brian Therapy INR Therapeutic: 2.0-3.0 With Mechanical Valve: >2.5 Low-intensity Therapeutic Range: 1.5-2.0 Mod-intensity Therapeutic Range: 2.0-3.0 High-intensity Therapeutic Range: 2.5-3.5 HIgh-intensity Therapeutic Range: 3.0-4.0 Common Critical/Alarm Value: 5.0 Common Upper Limit Reported: 10.0 Effective 11/26/2018: Please note methodology and/or reference ranges have changed. Performed By: #### P T #### [facility] [address] [place] [address] PT Coag (PPP) [Time] 24.3 s Critically high 12.3-14.9 [facility] Comment on above: Result Comment: Effkarin ctive 11/26/18 Please note methodology and/or reference ranges have changed. Performed By: #### P T #### [facility] [address] [place] [address] POCT Glucoseon 04-11-2019 Glucose [Mass/Vol] 234 mg/dL Critically high 60-115 [facility] Comment on above: Performed By: #### P T #### [facility] [address] [place] [address] POC Performed on ACCU-CHEK Normal [facility] Comment on above: Performed By: #### P T #### [facility] [address] [place] [address] Glucose [Mass/Vol] 234 mg/dL High 60 - 115 mg/dl [place] Interpretation and review of laboratory results Abnormal [place] Performed on ACCU-CHEK [facility], [place] Glucose [Mass/Vol] 246 mg/dL Critically high 60-115 [facility] Comment on above: Performed By: #### P T #### [facility] [address] [place] [address] POC Performed on ACCU-CHEK Normal [facility] Comment on above: Performed By: #### P T #### [facility] [address] [place] [address] Glucose [Mass/Vol] 246 mg/dL High 60 - 115 mg/dl [place] Interpretation and review of laboratory results Abnormal [facility] Performed on ACCU-CHEK [facility] [place] Glucose [Mass/Vol] 258 mg/dL Critically high 60-115 [place] Comment on above: Performed By: #### P T #### [facility] [address] [place] [address] Interpretation and review of laboratory results Abnormal [facility] Glucose [Mass/Vol] 249 mg/dL Critically high 60-115 [facility] Comment on above: Performed By: #### P T #### [facility] [address] [place] [address] POC [facility] Comment on above: Performed By: #### P T #### [facility] [address] [place] [address] Glucose [Mass/Vol] 249 mg/dL High 60 - 115 mg/dl [place] Interpretation and review of laboratory results Abnormal [place] [facility] PROTIME-INRon 04-11-2019 INR Coag (PPP) [Relative time] 1.6 {INR} [place] Comment on above: Warfarin Therapy INR Therapeutic: 2.0-3.0 With Mechanical Valve: >2.5 Low-intensity Therapeutic Range: 1.5-2.0 Mod-intensity Therapeutic Range: 2.0-3.0 High-intensity Therapeutic Range: 2.5-3.5 HIgh-intensity Therapeutic Range: 3.0-4.0 Common Critical/Alarm Value: 5.0 Common Upper Limit Reported: 10.0 Effective 11/26/2018: Please note methodology and/or reference ranges have changed. Interpretation and review of laboratory results Abnormal [place] PT Coag (PPP) [Time] 19.6 s [place] Comment on above: Effective 11/26/18 Please note methodology and/or reference ranges have changed. Prothrombin Timeon 9 INR Coag (PPP) [Relative time] 1.6 {INR} [facility] Comment on above: Result Comment: Warf brian Therapy INR Therapeutic: 2.0-3.0 With Mechanical Valve: >2.5 Low-intensity Therapeutic Range: 1.5-2.0 Mod-intensity Therapeutic Range: 2.0-3.0 High-intensity Therapeutic Range: 2.5-3.5 HIgh-intensity Therapeutic Range: 3.0-4.0 Common Critical/Alarm Value: 5.0 Common Upper Limit Reported: 10.0 Effective 11/26/2018: Please note methodology and/or reference ranges have changed. Performed By: #### P T #### [facility] [address] [place] [address] PT Coag (PPP) [Time] 19.6 s Critically high 12.3-14.9 [facility] Comment on above: Result Comment: Effe ctive 11/26/18 Please note methodology and/or reference ranges have changed. Performed By: #### P T #### [facility] [address] [place] [address] POCT Glucoseon 04-10-2019 Glucose [Mass/Vol] 290 mg/dL Critically high 60-115 [facility] Comment on above: Performed By: #### P T #### [facility] [address] [place] [address] POC Performed on ACCU-CHEK Normal [facility] Comment on above: Performed By: #### P T #### [facility] [address] [place] [address] Glucose [Mass/Vol] 290 mg/dL High 60 - 115 mg/dl [place] Interpretation and review of laboratory results Abnormal [place] Performed [place] ACCU-CHEK [place] Glucose [Mass/Vol] 337 mg/dL Critically high 60-115 [facility] Comment on above: Performed By: #### P GLU #### [facility] [address] [place] [address] POC Performed on ACCU-CHEK Normal [facility] Comment on above: Performed By: #### P GLU #### [facility] [address] [place] [address] Glucose [Mass/Vol] 337 mg/dL High 60 - 115 mg/dl [place] Interpretation and review of laboratory results Abnormal [place] Performed [place] ACCU-CHEK [place] Glucose [Mass/Vol] 313 mg/dL Critically high 60-115 [facility] Comment on above: Performed By: #### P GLU #### [facility] [address] [place] [address] POC [facility] Comment on above: Performed By: #### P GLU #### [facility] [address] [place] [address] Glucose [Mass/Vol] 313 mg/dL High 60 - 115 mg/dl [place] Interpretation and review of laboratory results Abnormal [place] Glucose [Mass/Vol] 309 mg/dL Critically high 60-115 [facility] Comment on above: Performed By: #### P GLU #### [facility] [address] [place] [address] POC Performed on Counts include 234 beds at the [facility] Comment on above: Performed By: #### P GLU #### [facility] [address] [address] Glucose [Mass/Vol] 309 mg/dL High 60 - 115 mg/dl [place] Interpretation and review of laboratory results Abnormal [place] PROTIME-INRon 04-10-2019 INR Coag (PPP) [Relative time] 1.1 {INR} [place] Comment on above: Warfarin Therapy IN R Therapeutic: 2.0-3.0 With Mechanical Valve: >2.5 Low-intensity Therapeutic Range: 1.5-2.0 Mod-intensity Therapeutic Range: 2.0-3.0 High-intensity Therapeutic Range: 2.5-3.5 HIgh-intensity Therapeutic Range: 3.0-4.0 Common Critical/Alarm Value: 5.0 Common Upper Limit Reported: 10.0 Effective 11/26/2018: Please note methodology and/or reference ranges have changed. PT Coag (PPP) [Time] 14.7 s [place] Comment on above: Effective 11/26/18 Please note methodology and/or reference ranges have changed. Prothrombin Timeon 9 INR Coag (PPP) [Relative time] 1.1 {INR} Normal [facility] Comment on above: Result Comment: Warf brian Therapy INR Therapeutic: 2.0-3.0 With Mechanical Valve: >2.5 Low-intensity Therapeutic Range: 1.5-2.0 Mod-intensity Therapeutic Range: 2.0-3.0 High-intensity Therapeutic Range: 2.5-3.5 HIgh-intensity Therapeutic Range: 3.0-4.0 Common Critical/Alarm Value: 5.0 Common Upper Limit Reported: 10.0 Effective 11/26/2018: Please note methodology and/or reference ranges have changed. Performed By: #### P GLU #### [facility] [address] [place] [address] PT Coag (PPP) [Time] 14.7 s Normal 12.3-14.9 [facility] Comment on above: Result Comment: Effe ctive 11/26/18 Please note methodology and/or reference ranges have changed. Performed By: #### P GLU #### [facility] [address] [place] [address] Basic Metabolic Panel Reflex Mgon 04-09-2019 Anion gap [Moles/Vol] 10 mmol/L Normal 9-15 [facility] Comment on above: Performed By: #### T S3C #### [facility] [address] [place] [address] Calcium [Mass/Vol] 8.2 mg/dL Low 8.5-9.9 [facility] Comment on above: Performed By: #### T S3C #### [facility] [address] [place] [address] Chloride [Moles/Vol] 98 mmol/L Normal 95-107 [facility] Comment on above: Performed By: #### T S3C #### [facility] [address] [place] [address] CO2 [Moles/Vol] 23 mmol/L Normal 20-31 [facility] Comment on above: Performed By: #### T S3C #### [facility] [address] [place] [address] Creatinine [Mass/Vol] 1.38 mg/dL Critically high 0.70-1.20 [facility] Comment on above: Performed By: #### T S3C #### [facility] [address] [place] [address] GFR/1.73 sq M predicted among blacks MDRD (S/P/Bld) [Vol rate/Area] mL/min/{1.73_m2} Normal >60 [facility] Comment on above: Result Comment: >60 mL/min/1.73m2 EGFR, calc. for ages 18 and older using the MDRD formula (not corrected for weight), is valid for stable renal function. Performed By: #### T S3C #### [facility] [address] [place] [address] GFR/1.73 sq M.predicted MDRD (S/P/Bld) [Vol rate/Area] 51.1 mL/min/{1.73_m2} Low >60 [facility] Comment on above: Result Comment: >60 mL/min/1.73m2 EGFR, calc. for ages 18 and older using the MDRD formula (not corrected for weight), is valid for stable renal function. Performed By: #### T S3C #### [facility] [address] [place] [address] Glucose [Mass/Vol] 266 mg/dL Critically high 70-99 [facility] Comment on above: Performed By: #### T S3C #### [facility] [address] [place] [address] Potassium reflex Mg 4.0 mEq/L Normal 3.4-4.9 [facility] Comment on above: Performed By: #### T S3C #### [facility] [address] [place] [address] Sodium [Moles/Vol] 131 mmol/L Low 135-144 [facility] Comment on above: Performed By: #### T S3C #### [facility] [address] [place] [address] Urea nitrogen [Mass/Vol] 13 mg/dL Normal 8-23 [facility] Comment on above: Performed By: #### T S3C #### [facility] [address] [place] [address] Basic Metabolic Panel w/ Ref anthony to MGon 04-09-2019 Anion gap [Moles/Vol] 10 mmol/L [place] Calcium [Mass/Vol] 8.2 mg/dL Low 8.5 - 9.9 mg/dL [place] Chloride [Moles/Vol] 98 mmol/L [place] CO2 [Moles/Vol] 23 mmol/L [place] Creatinine [Mass/Vol] 1.38 mg/dL High 0.7 - 1.2 mg/dL [place] GFR >60.0 >60 [place] Comment on above: >60 mL/min/1.73m2 EG FR, calc. for ages 18 and older using the MDRD formula (not corrected for weight), is valid for stable renal function. GFR Non- 51.1 Low >60 [place] Comment on above: >60 mL/min/1.73m2 EG FR, calc. for ages 18 and older using the MDRD formula (not corrected for weight), is valid for stable renal function. Glucose [Mass/Vol] 266 mg/dL High 70 - 99 mg/dL [place] Interpretation and review of laboratory results Abnormal [place] Potassium [Moles/Vol] 4.0 mmol/L [place] Sodium [Moles/Vol] 131 mmol/L Low [place] Urea nitrogen [Mass/Vol] 13 mg/dL 8 - 23 mg/dL [place] CBC With Platelet and Differ entialon 04-09-2019 Basophils (Bld) [#/Vol] 0.1 10*3/uL Normal 0.0-0.2 [facility] Comment on above: Performed By: #### T S3C #### [facility] [address] [place] [address] Basophils/100 WBC (Bld) 0.7 % Normal [facility] Comment on above: Performed By: #### T S3C #### [facility] [address] [place] [address] Eosinophils (Bld) [#/Vol] 0.5 10*3/uL Normal 0.0-0.7 [facility] Comment on above: Performed By: #### T S3C #### [facility] [address] [place] [address] Eosinophils/100 WBC (Bld) 5.9 % Normal [facility] Comment on above: Performed By: #### T S3C #### [facility] [address] [place] [address] Erythrocyte distribution width (RBC) [Ratio] 12.6 % Normal 11.5-14.5 [facility] Comment on above: Performed By: #### T S3C #### [facility] [address] [place] [address] Hematocrit (Bld) [Volume fraction] 31.5 % Low 42.0-52.0 [facility] Comment on above: Performed By: #### T S3C #### [facility] [address] [place] [address] Hemoglobin (Bld) [Mass/Vol] 10.6 g/dL Low 14.0-18.0 [facility] Comment on above: Performed By: #### T S3C #### [facility] [address] [place] [address] Lymphocytes (Bld) [#/Vol] 1.0 10*3/uL Normal 1.0-4.8 [facility] Comment on above: Performed By: #### T S3C #### [facility] [address] [place] [address] Lymphocytes/100 WBC (Bld) 12.8 % Normal [facility] Comment on above: Performed By: #### T S3C #### [facility] [address] [place] [address] MCH (RBC) [Entitic mass] 31.3 pg Normal 27.0-31.3 [facility] Comment on above: Performed By: #### T S3C #### [facility] [address] [place] [address] MCHC (RBC) [Mass/Vol] 33.8 % Normal 33.0-37.0 [facility] Comment on above: Performed By: #### T S3C #### [facility] [address] [place] [address] MCV (RBC) [Entitic vol] 92.8 fL Normal 80.0-100.0 [facility] Comment on above: Performed By: #### T S3C #### [facility] [address] [place] [address] Monocytes (Bld) [#/Vol] 0.7 10*3/uL Normal 0.2-0.8 [facility] Comment on above: Performed By: #### T S3C #### [facility] [address] [place] [address] Monocytes/100 WBC (Bld) 9.0 % Normal [facility] Comment on above: Performed By: #### T S3C #### [facility] [address] [place] [address] Neutrophils (Bld) [#/Vol] 5.8 10*3/uL Normal 1.4-6.5 [facility] Comment on above: Performed By: #### T S3C #### [facility] [address] [place] [address] Neutrophils/100 WBC (Bld) 71.6 % Normal [facility] Comment on above: Performed By: #### T S3C #### [facility] [address] [place] [address] Platelets (Bld) [#/Vol] 169 10*3/uL Normal 130-400 [facility] Comment on above: Performed By: #### T S3C #### [facility] [address] [place] [address] RBC (Bld) [#/Vol] 3.39 10*6/uL Low 4.70-6.10 [facility] Comment on above: Performed By: #### T S3C #### [facility] [address] [place] [address] WBC (Bld) [#/Vol] 8.1 10*3/uL Normal 4.8-10.8 [facility] Comment on above: Performed By: #### T S3C #### [facility] [address] [place] [address] CBC auto differentialon 03-20 Basophils (Bld) [#/Vol] 0.1 10*3/uL 0 - 0.2 K/uL [place] Basophils/100 WBC (Bld) 0.7 % [place] Eosinophils (Bld) [#/Vol] 0.5 10*3/uL 0 - 0.7 K/uL [place] Eosinophils/100 WBC (Bld) 5.9 % [place] Erythrocyte distribution width (RBC) [Ratio] 12.6 % 11.5 - 14.5 % [place] Hematocrit (Bld) [Volume fraction] 31.5 % Low 42 - 52 % [place] Hemoglobin (Bld) [Mass/Vol] 10.6 g/dL Low 14 - 18 g/dL [place] Interpretation and review of laboratory results Abnormal [place] Lymphocytes (Bld) [#/Vol] 1.0 10*3/uL 1 - 4.8 K/uL [place] Lymphocytes/100 WBC (Bld) 12.8 % [place] MCH (RBC) [Entitic mass] 31.3 pg 27 - 31.3 pg [place] MCHC (RBC) [Mass/Vol] 33.8 % 33 - 37 % [place] MCV (RBC) [Entitic vol] 92.8 fL 80 - 100 fL [place] Monocytes (Bld) [#/Vol] 0.7 10*3/uL 0.2 - 0.8 K/uL [place] Monocytes/100 WBC (Bld) 9.0 % [place] Neutrophils Absolute 5.8 K/uL 1.4 - 6.5 K/uL [place] Neutrophils/100 WBC (Bld) 71.6 % [place] Platelets (Bld) [#/Vol] 169 10*3/uL 130 - 400 K/uL [place] RBC (Bld) [#/Vol] 3.39 10*6/uL Low [place] WBC (Bld) [#/Vol] 8.1 10*3/uL 4.8 - 10.8 K/uL [place] Lactic Acidon 04-09-2019 Lactate [Moles/Vol] 1.8 mmol/L Normal 0.5-2.2 [place] Comment on above: Performed By: #### P GLU #### [facility] [address] [place] [address] Lactate [Moles/Vol] 1.6 mmol/L Normal 0.5-2.2 [facility] Comment on above: Performed By: #### T S3C #### [facility] [address] [place] [address] Lactate [Moles/Vol] 1.4 mmol/L Normal 0.5-2.2 [facility] Comment on above: Performed By: #### T S3C #### [facility] [address] [place] [address] Lactic acid, plasmaon 2018 Lactate [Moles/Vol] 1.6 mmol/L 0.5 - 2.2 mmol/L [place] Lactate [Moles/Vol] 1.4 mmol/L 0.5 - 2.2 mmol/L [place] POCT Glucoseon 04-09-2019 Glucose [Mass/Vol] 379 mg/dL Critically high 60-115 [facility] Comment on above: Performed By: #### P GLU #### [facility] [address] [place] [address] POC Performed on [facility] Comment on above: Performed By: #### P GLU #### [facility] [address] [place] [address] Glucose [Mass/Vol] 379 mg/dL High 60 - 115 mg/dl [place] Interpretation and review of laboratory results Abnormal [place] [facility] [place] [facility] Glucose [Mass/Vol] 329 mg/dL Critically high 60-115 [facility] Comment on above: Performed By: #### P GLU #### [facility] [address] [place] [address] POC Performed on Counts include 234 beds at the [facility] Comment on above: Performed By: #### P GLU #### [facility] [address] [place] [address] Glucose [Mass/Vol] 329 mg/dL High 60 - 115 mg/dl [place] Interpretation and review of laboratory results Abnormal [place] [facility] [place] [facility] Glucose [Mass/Vol] 318 mg/dL Critically high 60-115 [facility] Comment on above: Performed By: #### P GLU #### [facility] [address] [place] [address] POC Performed on Counts include 234 beds at the [facility] Comment on above: Performed By: #### P GLU #### [facility] [address] [place] [address] Glucose [Mass/Vol] 318 mg/dL High 60 - 115 mg/dl [place] Interpretation and review of laboratory results Abnormal [place] [facility] [facility] PROTIME-INRon 04-09-2019 INR Coag (PPP) [Relative time] 1.1 {INR} [place] Comment on above: Warfarin Therapy INR Therapeutic: 2.0-3.0 With Mechanical Valve: >2.5 Low-intensity Therapeutic Range: 1.5-2.0 Mod-intensity Therapeutic Range: 2.0-3.0 High-intensity Therapeutic Range: 2.5-3.5 HIgh-intensity Therapeutic Range: 3.0-4.0 Common Critical/Alarm Value: 5.0 Common Upper Limit Reported: 10.0 Effective 11/26/2018: Please note methodology and/or reference ranges have changed. PT Coag (PPP) [Time] 14.4 s [place] Comment on above: Effective 11/26/18 Please note methodology and/or reference ranges have changed. Procalcitoninon 04-09-2019 Procalcitonin 0.23 ng/mL Critically high 0.00-0.15 [facility] Comment on above: Result Comment: Refe [...] failure. Performed By: #### T S3C #### [facility] [address] [place] [id number] Interpretation and review of laboratory results Abnormal [place] Procalcitonin 0.23 ng/mL High 0 - 0.15 ng/mL [facility], [place] Comment on above: Reference Range: Adults: [...] Coag (PPP) [Relative time] 1.1 {INR} Normal [facility] Comment on above: Result Comment: Warf brian Therapy INR Therapeutic: 2.0-3.0 With Mechanical Valve: >2.5 Low-intensity Therapeutic Range: 1.5-2.0 Mod-intensity Therapeutic Range: 2.0-3.0 High-intensity Therapeutic Range: 2.5-3.5 HIgh-intensity Therapeutic Range: 3.0-4.0 Common Critical/Alarm Value: 5.0 Common Upper Limit Reported: 10.0 Effective 11/26/2018: Please note methodology and/or reference ranges have changed. Performed By: #### P GLU #### [facility] [address] [place] [address] PT Coag (PPP) [Time] 14.4 s Normal 12.3-14.9 [facility] Comment on above: Result Comment: Effkarin ctive 11/26/18 Please note methodology and/or reference ranges have changed. Performed By: #### P GLU #### [facility] [address] [place] [address] Urine Cultureon 04-09-2019 Bacteria identified Cx Nom (U) No growth 24 hours [place] DERED BY: JOSE DAVID DAMIAN SOURCE: Urine Clean Catch COLLECTED: 04/07/19 18:30 ANTIBIOTICS AT JIMENA.: RECEIVED : 04/07/19 21:27 [place] BILIRUBIN TOTAL DIRECT & IND IRECTon 04-08-2019 Bilirubin Ql (U) 2.7 mg/dL High 0.2 - 0.7 mg/dL [place] Bilirubin, Indirect 2 mg/dL High 0 - 0.6 mg/dL [place] Bilirubin.direct [Mass/Vol] 0.7 mg/dL High 0 - 0.4 mg/dL [place] Interpretation and review of laboratory results Abnormal [place] Basic Metabolic Panel Reflex Mgon 04-08-2019 Anion gap [Moles/Vol] 9 mmol/L Normal 9-15 [facility] Comment on above: Performed By: #### A 1C #### [facility] [address] [place] [address] Calcium [Mass/Vol] 8.0 mg/dL Low 8.5-9.9 [facility] Comment on above: Performed By: #### A 1C #### [facility] [address] [place] [address] Chloride [Moles/Vol] 99 mmol/L Normal 95-107 [facility] Comment on above: Performed By: #### A 1C #### [facility] [address] [place] [address] CO2 [Moles/Vol] 23 mmol/L Normal 20-31 [facility] Comment on above: Performed By: #### A 1C #### [facility] [address] [place] [address] Creatinine [Mass/Vol] 1.77 mg/dL Critically high 0.70-1.20 [facility] Comment on above: Performed By: #### A 1C #### [facility] [address] [place] [address] GFR/1.73 sq M predicted among blacks MDRD (S/P/Bld) [Vol rate/Area] 46.4 mL/min/{1.73_m2} Low >60 [facility] Comment on above: Result Comment: >60 mL/min/1.73m2 EGFR, calc. for ages 18 and older using the MDRD formula (not corrected for weight), is valid for stable renal function. Performed By: #### A 1C #### [facility] [address] [place] [address] GFR/1.73 sq M.predicted MDRD (S/P/Bld) [Vol rate/Area] 38.4 mL/min/{1.73_m2} Low >60 [facility] Comment on above: Result Comment: >60 mL/min/1.73m2 EGFR, calc. for ages 18 and older using the MDRD formula (not corrected for weight), is valid for stable renal function. Performed By: #### A 1C #### [facility] [address] [place] [address] Glucose [Mass/Vol] 219 mg/dL Critically high 70-99 [facility] Comment on above: Performed By: #### A 1C #### [facility] [address] [place] [address] Potassium reflex Mg 4.8 mEq/L Normal 3.4-4.9 [facility] Comment on above: Performed By: #### A 1C #### [facility] [address] [place] [address] Sodium [Moles/Vol] 131 mmol/L Low 135-144 [facility] Comment on above: Performed By: #### A 1C #### [facility] [address] [place] [address] Urea nitrogen [Mass/Vol] 18 mg/dL Normal 8-23 [facility] Comment on above: Performed By: #### A 1C #### [facility] [address] [place] [address] Basic Metabolic Panel w/ Ref anthony to MGon 04-08-2019 Anion gap [Moles/Vol] 9 mmol/L [place] Calcium [Mass/Vol] 8.0 mg/dL Low 8.5 - 9.9 mg/dL [place] Chloride [Moles/Vol] 99 mmol/L [place] CO2 [Moles/Vol] 23 mmol/L [place] Creatinine [Mass/Vol] 1.77 mg/dL High 0.7 - 1.2 mg/dL [place] GFR 46.4 Low >60 [place] Comment on above: >60 mL/min/1.73m2 EG FR, calc. for ages 18 and older using the MDRD formula (not corrected for weight), is valid for stable renal function. GFR Non- 38.4 Low >60 [place] Comment on above: >60 mL/min/1.73m2 EG FR, calc. for ages 18 and older using the MDRD formula (not corrected for weight), is valid for stable renal function. Glucose [Mass/Vol] 219 mg/dL High 70 - 99 mg/dL [place] Potassium [Moles/Vol] 4.8 mmol/L [place] Sodium [Moles/Vol] 131 mmol/L [place] Urea nitrogen [Mass/Vol] 18 mg/dL 8 - 23 mg/dL [place] Bilirubin Total, Direct, and Indirecton 04-08-2019 Bilirubin [Mass/Vol] 2.7 mg/dL Critically high 0.2-0.7 [facility] Comment on above: Performed By: #### B MP #### [facility] [address] [facility] [address] Bilirubin Indirect 2.0 mg/dL Critically high 0.0-0.6 [facility] Comment on above: Performed By: #### B MP #### [facility] [address] [facility] [address] Bilirubin.direct [Mass/Vol] 0.7 mg/dL Critically high 0.0-0.4 [facility] Comment on above: Performed By: #### B MP #### [facility] [address] [place] [address] CBC With Platelet and Differ entialon 04-08-2019 Basophils (Bld) [#/Vol] 0.1 10*3/uL Normal 0.0-0.2 [facility] Comment on above: Performed By: #### B MP #### [facility] [address] [place] [address] Basophils/100 WBC (Bld) 0.7 % Normal [facility] Comment on above: Performed By: #### B MP #### [facility] [address] [place] [address] Eosinophils (Bld) [#/Vol] 0.4 10*3/uL Normal 0.0-0.7 [facility] Comment on above: Performed By: #### B MP #### [facility] [address] [place] [address] Eosinophils/100 WBC (Bld) 3.5 % Normal [facility] Comment on above: Performed By: #### B MP #### [facility] [address] [place] [address] Erythrocyte distribution width (RBC) [Ratio] 12.7 % Normal 11.5-14.5 [facility] Comment on above: Performed By: #### B MP #### [facility] [address] [place] [address] Hematocrit (Bld) [Volume fraction] 34.0 % Low 42.0-52.0 [facility] Comment on above: Performed By: #### B MP #### [facility] [address] [place] [address] Hemoglobin (Bld) [Mass/Vol] 11.2 g/dL Low 14.0-18.0 [facility] Comment on above: Performed By: #### B MP #### [facility] [address] [place] [address] Lymphocytes (Bld) [#/Vol] 1.6 10*3/uL Normal 1.0-4.8 [facility] Comment on above: Performed By: #### B MP #### [facility] [address] [place] [address] Lymphocytes/100 WBC (Bld) 13.9 % Normal [facility] Comment on above: Performed By: #### B MP #### [facility] [address] [place] [address] MCH (RBC) [Entitic mass] 30.8 pg Normal 27.0-31.3 [facility] Comment on above: Performed By: #### B MP #### [facility] [address] [place] [address] MCHC (RBC) [Mass/Vol] 32.9 % Low 33.0-37.0 [facility] Comment on above: Performed By: #### B MP #### [facility] [address] [place] [address] MCV (RBC) [Entitic vol] 93.7 fL Normal 80.0-100.0 [facility] Comment on above: Performed By: #### B MP #### [facility] [address] [place] [address] Monocytes (Bld) [#/Vol] 1.1 10*3/uL Critically high 0.2-0.8 [facility] Comment on above: Performed By: #### B MP #### [facility] [address] [place] [address] Monocytes/100 WBC (Bld) 9.6 % Normal [facility] Comment on above: Performed By: #### B MP #### [facility] [address] [place] [address] Neutrophils (Bld) [#/Vol] 8.2 10*3/uL Critically high 1.4-6.5 [facility] Comment on above: Performed By: #### B MP #### [facility] [address] [place] [address] Neutrophils/100 WBC (Bld) 72.3 % Normal [facility] Comment on above: Performed By: #### B MP #### [facility] [address] [place] [address] Platelets (Bld) [#/Vol] 153 10*3/uL Normal 130-400 [facility] Comment on above: Performed By: #### B MP #### [facility] [address] [place] [address] RBC (Bld) [#/Vol] 3.63 10*6/uL Low 4.70-6.10 [facility] Comment on above: Performed By: #### B MP #### [facility] [address] [place] [address] WBC (Bld) [#/Vol] 11.4 10*3/uL Critically high 4.8-10.8 [facility] Comment on above: Performed By: #### B MP #### [facility] [address] [place] [address] CBC auto differentialon 03-20 Basophils (Bld) [#/Vol] 0.1 10*3/uL 0 - 0.2 K/uL [place] Basophils/100 WBC (Bld) 0.7 % [place] Eosinophils (Bld) [#/Vol] 0.4 10*3/uL 0 - 0.7 K/uL [place] Eosinophils/100 WBC (Bld) 3.5 % [place] Erythrocyte distribution width (RBC) [Ratio] 12.7 % 11.5 - 14.5 % [place] Hematocrit (Bld) [Volume fraction] 34.0 % Low 42 - 52 % [place] Hemoglobin (Bld) [Mass/Vol] 11.2 g/dL Low 14 - 18 g/dL [place] Interpretation and review of laboratory results Abnormal [place] Lymphocytes (Bld) [#/Vol] 1.6 10*3/uL 1 - 4.8 K/uL [place] Lymphocytes/100 WBC (Bld) 13.9 % [place] MCH (RBC) [Entitic mass] 30.8 pg 27 - 31.3 pg [place] MCHC (RBC) [Mass/Vol] 32.9 % Low 33 - 37 % [place] MCV (RBC) [Entitic vol] 93.7 fL 80 - 100 fL [place] Monocytes (Bld) [#/Vol] 1.1 10*3/uL High 0.2 - 0.8 K/uL [place] Monocytes/100 WBC (Bld) 9.6 % [place] Neutrophils Absolute 8.2 K/uL High 1.4 - 6.5 K/uL [place] Neutrophils/100 WBC (Bld) 72.3 % [place] Platelets (Bld) [#/Vol] 153 10*3/uL 130 - 400 K/uL [place] RBC (Bld) [#/Vol] 3.63 10*6/uL Low [place] WBC (Bld) [#/Vol] 11.4 10*3/uL High 4.8 - 10.8 K/uL [place] Culture, Respiratoryon 04-08 Culture, Respiratory ORDERED BY: SHANIKA JENNINGS SOURCE: Sputum Expectorated Mouth COLLECTED: 04/08/19 05:06 ANTIBIOTICS AT JIMENA.: RECEIVED : 04/08/19 05:06 Gram Stain Direct FINAL 04/08/19 08:03 Many WBC's Rare epithelial cells Few Budding yeast Culture, Respiratory FINAL 04/10/19 11:39 Usual respiratory rachel with Rare growth Yeast No further workup Normal [facility] Comment on above: Performed By: #### A 1C #### [facility] [address] [place] [address] Hepatic function panelon Albumin [Mass/Vol] 2.8 g/dL Low 3.5 - 4.6 g/dL [place] ALP [Catalytic activity/Vol] 42 U/L 35 - 104 U/L [place] ALT [Catalytic activity/Vol] 28 U/L 0 - 41 U/L [place] AST [Catalytic activity/Vol] 17 U/L 0 - 40 U/L [place] Bilirubin Ql (U) 2.0 mg/dL High 0.2 - 0.7 mg/dL [place] Bilirubin, Indirect 1.4 mg/dL High 0 - 0.6 mg/dL [place] Bilirubin.direct [Mass/Vol] 0.6 mg/dL High 0 - 0.4 mg/dL [place] Protein [Mass/Vol] 5.4 g/dL Low 6.3 - 8 g/dL [place] Influenza A and Bon 04-08-20 Influenza A by PCR Negative Normal [facility] Comment on above: Result Comment: Effe ctive 01/07/19 Please note methodology and/or reference ranges have changed. Performed By: #### B MP #### [facility] [address] [facility] [address] Influenza B by PCR Negative Normal [facility] Comment on above: Result Comment: Effe ctive 01/07/19 Please note methodology and/or reference ranges have changed. Performed By: #### B MP #### [facility] [address] [facility] [address] Lactate, Sepsison 04-08-2019 Lactate, Sepsis 2.1 mmol/L Critically high 0.5-1.9 [facility] Comment on above: Performed By: #### A 1C #### [facility] [address] [place] [address] Interpretation and review of laboratory results Abnormal [place] Lactic Acid, Sepsis 2.1 mmol/L High 0.5 - 1.9 mmol/L [place] Lactate, Sepsis 4.0 mmol/L Critically high 0.5-1.9 [facility] Comment on above: Order Comment: CALL Ruiz LC2W tel. [phone],Lactic Acid results called to and read back by Shaq Castillo RN, 04/08/2019 01:55,by CHARLEY Performed By: #### B MP #### [facility] [address] [place] [address] Interpretation and review of laboratory results Abnormal [place] Lactic Acid, Sepsis 4.0 mmol/L Critically high 0.5 - 1.9 mmol/L [place] CALL Ruiz LC2W tel. [phone], Lactic Acid results called to and read back by Shaq Castillo RN, 04/08/2019 01:55, by CHARLEY [place] Lactic Acidon 04-08-2019 Lactate [Moles/Vol] 2.7 mmol/L Critically high 0.5-2.2 [place] Comment on above: Performed By: #### T S3C #### [facility] [address] [place] [address] Lactate [Moles/Vol] 1.6 mmol/L Normal 0.5-2.2 [facility] Comment on above: Performed By: #### A 1C #### [facility] [address] [place] [address] Lactic acid, plasmaon 2018 Lactate [Moles/Vol] 1.6 mmol/L 0.5 - 2.2 mmol/L [place] Liver Panelon 04-08-2019 Bilirubin Indirect 1.4 mg/dL Critically high 0.0-0.6 [facility] Comment on above: Performed By: #### A 1C #### [facility] [address] [place] [address] Albumin [Mass/Vol] 2.8 g/dL Low 3.5-4.6 [facility] Comment on above: Performed By: #### A 1C #### [facility] [address] [place] [address] ALP [Catalytic activity/Vol] 42 U/L Normal 35-104 [facility] Comment on above: Performed By: #### A 1C #### [facility] [address] [place] [address] ALT [Catalytic activity/Vol] 28 U/L Normal 0-41 [facility] Comment on above: Performed By: #### A 1C #### [facility] [address] [place] [address] AST [Catalytic activity/Vol] 17 U/L Normal 0-40 [facility] Comment on above: Performed By: #### A 1C #### [facility] [address] [place] [address] Bilirubin [Mass/Vol] 2.0 mg/dL Critically high 0.2-0.7 [facility] Comment on above: Performed By: #### A 1C #### [facility] [address] [place] [address] Bilirubin.direct [Mass/Vol] 0.6 mg/dL Critically high 0.0-0.4 [facility] Comment on above: Performed By: #### A 1C #### [facility] [address] [place] [address] Protein [Mass/Vol] 5.4 g/dL Low 6.3-8.0 [facility] Comment on above: Performed By: #### A 1C #### [facility] [address] [place] [address] MRI LUMBAR SPINE W WO CONTRA STon 04-08-2019 Phillip, Chpo Incoming R adiant Results From [employer] - 04/08/2019 1:24 PM EST Patient : [...] hematopoietic hyperplasia, leukemia, lymphoma or metastatic disease. [place] 1. Postcontrast enha ncement involving the [...] hematopoietic hyperplasia, leukemia, lymphoma or metastatic disease. [place] Patient 8 : 1950 Age: 68 [...] the superficial subcutaneous fatty tissues also identified. [place] Otheron 04-08-2019 Interpretation and review of laboratory results Abnormal [place] Interpretation and review of laboratory results Abnormal [place] POCT Glucoseon 04-08-2019 Glucose [Mass/Vol] 294 mg/dL Critically high 60-115 [facility] Comment on above: Performed By: #### T S3C #### [facility] [address] [place] [id number] [phone] POC Performed on ACCU-CHEK Normal [facility] Comment on above: Performed By: #### T S3C #### [facility] [address] [place] [address] Glucose [Mass/Vol] 294 mg/dL High 60 - 115 mg/dl [facility] [place], [place] Performed on ACCU-CHEK [facility] [place], [place] Glucose [Mass/Vol] 301 mg/dL Critically high 60-115 [facility] Comment on above: Performed By: #### T S3C #### [facility] [address] [place] [address] POC Performed on ACCU-CHEK Normal [facility] Comment on above: Performed By: #### T S3C #### [facility] [address] [place] [address] Glucose [Mass/Vol] 301 mg/dL High 60 - 115 mg/dl [place] Interpretation and review of laboratory results Abnormal [facility] Performed on ACCU-CHEK [facility] Glucose [Mass/Vol] 210 mg/dL Critically high 60-115 [facility] Comment on above: Performed By: #### A 1C #### [facility] [address] [place] [address] POC Performed on ACCU-CHE Normal [facility] Comment on above: Performed By: #### A 1C #### [facility] [address] [place] [address] Glucose [Mass/Vol] 210 mg/dL High 60 - 115 mg/dl [place] Interpretation and review of laboratory results Abnormal [facility] Performed on ACCU-CHEK [facility] Glucose [Mass/Vol] 214 mg/dL Critically high 60-115 [facility] Comment on above: Performed By: #### A 1C #### [facility] [address] [place] [address] POC [facility] Normal [facility] Comment on above: Performed By: #### A 1C #### [facility] [address] [place] [address] Glucose [Mass/Vol] 214 mg/dL High 60 - 115 mg/dl [place] Interpretation and review of laboratory results Abnormal [place] Performed on ACCU-CHEK [place] POCT Venouson 04-08-2019 Creatinine [Mass/Vol] 1.7 mg/dL Critically high 0.8-1.3 [facility] Comment on above: Performed By: #### B MP #### [facility] [address] [facility] [address] GFR/1.73 sq M predicted among blacks MDRD (S/P/Bld) [Vol rate/Area] 49 mL/min/{1.73_m2} Abnormal >60 [facility] Comment on above: Result Comment: >60 mL/min/1.73m2 EGFR, calc. for ages 18 and older using the MDRD formula (not corrected for weight), is valid for stable renal function. Performed By: #### B MP #### [facility] [address] [facility] [address] GFR/1.73 sq M.predicted MDRD (S/P/Bld) [Vol rate/Area] 40 mL/min/{1.73_m2} Abnormal >60 [facility] Comment on above: Result Comment: >60 mL/min/1.73m2 EGFR, calc. for ages 18 and older using the MDRD formula (not corrected for weight), is valid for stable renal function. Performed By: #### B MP #### [facility] [address] [facility] [address] Glucose [Mass/Vol] 233 mg/dL Critically high 60-115 [facility] Comment on above: Performed By: #### B MP #### [facility] [address] [facility] [address] Hematocrit (Bld) [Volume fraction] 33 % Low 41-53 [facility] Comment on above: Performed By: #### B MP #### [facility] [address] [facility] [address] Hemoglobin (Bld) [Mass/Vol] 11.2 g/dL Low 13.5-17.5 [facility] Comment on above: Performed By: #### B MP #### [facility] [address] [place] [address] Oxygen saturation in Blood 42 % Normal Not Establ [facility] Comment on above: Performed By: #### B MP #### [facility] [address] [place] [address] POC Calciuim Ionized 1.05 mmol/L Low 1.12-1.32 [facility] Comment on above: Performed By: #### B MP #### [facility] [address] [place] [address] POC Cl 101 mEq/L Normal 99-110 [facility] Comment on above: Performed By: #### B MP #### [facility] [address] [place] [address] POC FIO2 28.000 Normal [facility] Comment on above: Performed By: #### B MP #### [facility] [address] [place] [address] POC K 4.4 mEq/L Normal 3.5-5.1 [facility] Comment on above: Performed By: #### B MP #### [facility] [address] [place] [address] POC Lactic Acid 3.67 mmol/L Critically high 0.40-2.[address] [facility] Comment on above: Performed By: #### B MP #### [facility] [address] [place] [address] POC Na 133 mEq/L Low 136-145 [facility] Comment on above: Performed By: #### B MP #### [facility] [address] [place] [address] POC Performed on SEE BELOW Normal [facility] Comment on above: Result Comment: Perf ormed on POC Sample Type: Venous Oxygen Delivery System: Cannula Performed By: #### B MP #### [facility] [address] [place] [address] POC Sample Type ROMERO Normal [facility] Comment on above: Performed By: #### B MP #### [facility] [address] [place] [address] POC Venous Base Excess -6 Low -3-3 [facility] Comment on above: Performed By: #### B MP #### [facility] [address] [place] [address] POC Venous HCO3 20.7 mmol/L Low 23.0-29.0 [facility] Comment on above: Performed By: #### B MP #### [facility] [address] [place] [address] POC Venous PCO2 43.9 mm Hg Normal 40.0-50.0 [facility] Comment on above: Performed By: #### B MP #### [facility] [address] [place] [address] POC Venous pH 7.282 Low 7.350-7.45 [facility] Comment on above: Performed By: #### B MP #### [facility] [address] [place] [address] POC Venous PO2 27 mm Hg Normal [facility] Comment on above: Performed By: #### B MP #### [facility] [address] [place] [address] POC Venous Total CO2 22 mmol/L Normal Not [facility] Comment on above: Performed By: #### B MP #### [facility] [address] [place] [address] Prothrombin Timeon 9 INR Coag (PPP) [Relative time] 1.2 {INR} Normal [facility] Comment on above: Result Comment: Warf brian Therapy INR Therapeutic: 2.0-3.0 With Mechanical Valve: >2.5 Low-intensity Therapeutic Range: 1.5-2.0 Mod-intensity Therapeutic Range: 2.0-3.0 High-intensity Therapeutic Range: 2.5-3.5 HIgh-intensity Therapeutic Range: 3.0-4.0 Common Critical/Alarm Value: 5.0 Common Upper Limit Reported: 10.0 Effective 11/26/2018: Please note methodology and/or reference ranges have changed. Performed By: #### A 1C #### [facility] [address] [place] [address] PT Coag (PPP) [Time] 15.4 s Critically high 12.3-14.9 [facility] Comment on above: Result Comment: Effe ctive 11/26/18 Please note methodology and/or reference ranges have changed. Performed By: #### A 1C #### [facility] [address] [facility] [address] Protime-INRon 04-08-2019 INR Coag (PPP) [Relative time] 1.2 {INR} [place] Comment on above: Warfarin Therapy INR Therapeutic: 2.0-3.0 With Mechanical Valve: >2.5 Low-intensity Therapeutic Range: 1.5-2.0 Mod-intensity Therapeutic Range: 2.0-3.0 High-intensity Therapeutic Range: 2.5-3.5 HIgh-intensity Therapeutic Range: 3.0-4.0 Common Critical/Alarm Value: 5.0 Common Upper Limit Reported: 10.0 Effective 11/26/2018: Please note methodology and/or reference ranges have changed. PT Coag (PPP) [Time] 15.4 s High [facility] [place] Comment on above: Effective 11/26/18 Please note methodology and/or reference ranges have changed. XR CHEST PORTABLEon 04-08-20 19 Patient 8 : 1950 Age: 68 years Gender: Male Order Date: 04/07/2019 6:30 PM. Exam: XR CHEST PORTABLE Number of Views: 1 Indication: Fever Comparison: None. Findings: Cardiomediastinal silhouette is within normal limits. Lungs are clear without evidence of infiltrate/pneumonia, pneumothorax or pleural effusion [facility], [place] Phillip, Chpo Incoming R adiant Results From [employer] - 04/08/2019 7:15 AM EST Patient : 1950 Age: 68 years Gender: Male Order Date: 04/07/2019 6:30 PM. Exam: XR CHEST PORTABLE Number of Views: 1 Indication: Fever Comparison: None. Findings: Cardiomediastinal silhouette is within normal limits. Lungs are clear without evidence of infiltrate/pneumonia, pneumothorax or pleural effusion IMPRESSION: Impression: No radiographic evidence of acute cardiopulmonary disease [place] Impression: No radio graphic evidence of acute cardiopulmonary disease [place] APTTon 04-07-2019 aPTT Coag (Bld) [Time] 36.7 s [place] Comment on above: Effective 12/03/2018: Please note methodology and/or reference ranges have changed. aPTT - Heparin Therapeutic Range: 74.0 - 106 seconds Brain Natriuretic Peptideon 04-07-2019 Natriuretic peptide B (Bld) [Mass/Vol] 597 pg/mL [place] Comment on above: NT-pro BNP ACUTE [...] [#/Vol] 0.1 10*3/uL 0 - 0.2 K/uL [place] Basophils/100 WBC (Bld) 1.0 % [place] Eosinophils (Bld) [#/Vol] 0.4 10*3/uL 0 - 0.7 K/uL [place] Eosinophils/100 WBC (Bld) 3.1 % [place] Erythrocyte distribution width (RBC) [Ratio] 12.9 % 11.5 - 14.5 % [place] Hematocrit (Bld) [Volume fraction] 39.9 % Low 42 - 52 % [place] Hemoglobin (Bld) [Mass/Vol] 13.5 g/dL Low 14 - 18 g/dL [place] Interpretation and review of laboratory results Abnormal [place] Lymphocytes (Bld) [#/Vol] 1.6 10*3/uL 1 - 4.8 K/uL [place] Lymphocytes/100 WBC (Bld) 13.4 % [place] MCH (RBC) [Entitic mass] 30.7 pg 27 - 31.3 pg [place] MCHC (RBC) [Mass/Vol] 33.8 % 33 - 37 % [place] MCV (RBC) [Entitic vol] 90.7 fL 80 - 100 fL [place] Monocytes (Bld) [#/Vol] 0.9 10*3/uL High 0.2 - 0.8 K/uL [place] Monocytes/100 WBC (Bld) 7.9 % [place] Neutrophils Absolute 8.9 K/uL High 1.4 - 6.5 K/uL [place] Neutrophils/100 WBC (Bld) 74.6 % [place] Platelets (Bld) [#/Vol] 178 10*3/uL 130 - 400 K/uL [place] RBC (Bld) [#/Vol] 4.40 10*6/uL Low [place] WBC (Bld) [#/Vol] 11.9 10*3/uL High 4.8 - 10.8 K/uL [place] CBC With Platelet and Differ entialon 04-07-2019 Basophils (Bld) [#/Vol] 0.1 10*3/uL Normal 0.0-0.2 [facility] Comment on above: Performed By: #### C BCWD #### [facility] [address] [place] [address] Basophils/100 WBC (Bld) 1.0 % Normal [facility] Comment on above: Performed By: #### C BCWD #### [facility] [address] [place] [address] Eosinophils (Bld) [#/Vol] 0.4 10*3/uL Normal 0.0-0.7 [facility] Comment on above: Performed By: #### C BCWD #### [facility] [address] [place] [address] Eosinophils/100 WBC (Bld) 3.1 % Normal [facility] Comment on above: Performed By: #### C BCWD #### [facility] [address] [place] [address] Erythrocyte distribution width (RBC) [Ratio] 12.9 % Normal 11.5-14.5 [facility] Comment on above: Performed By: #### C BCWD #### [facility] [address] [place] [address] Hematocrit (Bld) [Volume fraction] 39.9 % Low 42.0-52.0 [facility] Comment on above: Performed By: #### C BCWD #### [facility] [address] [place] [address] Hemoglobin (Bld) [Mass/Vol] 13.5 g/dL Low 14.0-18.0 [facility] Comment on above: Performed By: #### C BCWD #### [facility] [address] [place] [address] Lymphocytes (Bld) [#/Vol] 1.6 10*3/uL Normal 1.0-4.8 [facility] Comment on above: Performed By: #### C BCWD #### [facility] [address] [place] [address] Lymphocytes/100 WBC (Bld) 13.4 % Normal [facility] Comment on above: Performed By: #### C BCWD #### [facility] [address] [place] [address] MCH (RBC) [Entitic mass] 30.7 pg Normal 27.0-31.3 [facility] Comment on above: Performed By: #### C BCWD #### [facility] [address] [place] [address] MCHC (RBC) [Mass/Vol] 33.8 % Normal 33.0-37.0 [facility] Comment on above: Performed By: #### C BCWD #### [facility] [address] [place] [address] MCV (RBC) [Entitic vol] 90.7 fL Normal 80.0-100.0 [facility] Comment on above: Performed By: #### C BCWD #### [facility] [address] [place] [address] Monocytes (Bld) [#/Vol] 0.9 10*3/uL Critically high 0.2-0.8 [facility] Comment on above: Performed By: #### C BCWD #### [facility] [address] [place] [address] Monocytes/100 WBC (Bld) 7.9 % Normal [facility] Comment on above: Performed By: #### C BCWD #### [facility] [address] [place] [address] Neutrophils (Bld) [#/Vol] 8.9 10*3/uL Critically high 1.4-6.5 [facility] Comment on above: Performed By: #### C BCWD #### [facility] [address] [place] [address] Neutrophils/100 WBC (Bld) 74.6 % Normal [facility] Comment on above: Performed By: #### C BCWD #### [facility] [address] [place] [address] Platelets (Bld) [#/Vol] 178 10*3/uL Normal 130-400 [facility] Comment on above: Performed By: #### C BCWD #### [facility] [address] [place] [address] RBC (Bld) [#/Vol] 4.40 10*6/uL Low 4.70-6.10 [facility] Comment on above: Performed By: #### C BCWD #### [facility] [address] [place] [address] WBC (Bld) [#/Vol] 11.9 10*3/uL Critically high 4.8-10.8 [facility] Comment on above: Performed By: #### C BCWD #### [facility] [address] [place] [address] CKon 04-07-2019 Total CK 255 U/L High 0 - 190 U/L [place] CKMB & RELATIVE PERCENTon CK.MB [Mass/Vol] 0.7 % 0 - 3.5 % [place] CK.MB [Mass/Vol] 1.8 ng/mL 0 - 6.7 ng/mL [place] CKMB and Relative Percenton 04-07-2019 CK.MB [Mass/Vol] 0.7 % Normal 0.0-3.5 [facility] Comment on above: Performed By: #### B MP #### [facility] [address] [place] [address] CK.MB [Mass/Vol] 1.8 ng/mL Normal 0.0-6.7 [facility] Comment on above: Performed By: #### B MP #### [facility] [address] [place] [address] Comprehensive Metabolic Pane harmony 04-07-2019 Albumin [Mass/Vol] 3.7 g/dL Normal 3.5-4.6 [facility] Comment on above: Performed By: #### P T #### [facility] [address] [place] [address] ALP [Catalytic activity/Vol] 52 U/L Normal 35-104 [facility] Comment on above: Performed By: #### P T #### [facility] [address] [place] [address] ALT [Catalytic activity/Vol] 41 U/L Normal 0-41 [facility] Comment on above: Performed By: #### P T #### [facility] [address] [place] [address] Anion gap [Moles/Vol] 12 mmol/L Normal 9-15 [facility] Comment on above: Performed By: #### P T #### [facility] [address] [place] [address] AST [Catalytic activity/Vol] 27 U/L Normal 0-40 [facility] Comment on above: Performed By: #### P T #### [facility] [address] [place] [address] Bilirubin [Mass/Vol] 2.6 mg/dL Critically high 0.2-0.7 [facility] Comment on above: Performed By: #### P T #### [facility] [address] [place] [address] Calcium [Mass/Vol] 8.9 mg/dL Normal 8.5-9.9 [facility] Comment on above: Performed By: #### P T #### [facility] [address] [place] [address] Chloride [Moles/Vol] 93 mmol/L Low 95-107 [facility] Comment on above: Performed By: #### P T #### [facility] [address] [place] [address] CO2 [Moles/Vol] 23 mmol/L Normal 20-31 [facility] Comment on above: Performed By: #### P T #### [facility] [address] [place] [address] Creatinine [Mass/Vol] 1.97 mg/dL Critically high 0.70-1.20 [facility] Comment on above: Performed By: #### P T #### [facility] [address] [place] [address] GFR/1.73 sq M predicted among blacks MDRD (S/P/Bld) [Vol rate/Area] 41.0 mL/min/{1.73_m2} Low >60 [facility] Comment on above: Result Comment: >60 mL/min/1.73m2 EGFR, calc. for ages 18 and older using the MDRD formula (not corrected for weight), is valid for stable renal function. Performed By: #### P T #### [facility] [address] [place] [address] GFR/1.73 sq M.predicted MDRD (S/P/Bld) [Vol rate/Area] 33.9 mL/min/{1.73_m2} Low >60 [facility] Comment on above: Result Comment: >60 mL/min/1.73m2 EGFR, calc. for ages 18 and older using the MDRD formula (not corrected for weight), is valid for stable renal function. Performed By: #### P T #### [facility] [address] [place] [address] Globulin (S) [Mass/Vol] 3.0 g/dL Normal 2.3-3.5 [facility] Comment on above: Performed By: #### P T #### [facility] [address] [place] [address] Glucose [Mass/Vol] 281 mg/dL Critically high 70-99 [facility] Comment on above: Performed By: #### P T #### [facility] [address] [place] [address] Potassium [Moles/Vol] 5.9 mmol/L Critically high 3.4-4.9 [facility] Comment on above: Performed By: #### P T #### [facility] [address] [place] [address] Protein [Mass/Vol] 6.7 g/dL Normal 6.3-8.0 [facility] Comment on above: Performed By: #### P T #### [facility] [address] [place] [address] Sodium [Moles/Vol] 128 mmol/L Low 135-144 [facility] Comment on above: Performed By: #### P T #### [facility] [address] [place] [address] Urea nitrogen [Mass/Vol] 20 mg/dL Normal 8-23 [facility] Comment on above: Performed By: #### P T #### [facility] [address] [place] [address] Albumin [Mass/Vol] 3.7 g/dL 3.5 - 4.6 g/dL [place] ALP [Catalytic activity/Vol] 52 U/L 35 - 104 U/L [place] ALT [Catalytic activity/Vol] 41 U/L 0 - 41 U/L [place] Anion gap [Moles/Vol] 12 mmol/L [place] AST [Catalytic activity/Vol] 27 U/L 0 - 40 U/L [place] Bilirubin Ql (U) 2.6 mg/dL High 0.2 - 0.7 mg/dL [place] Calcium [Mass/Vol] 8.9 mg/dL 8.5 - 9.9 mg/dL [place] Chloride [Moles/Vol] 93 mmol/L Low [place] CO2 [Moles/Vol] 23 mmol/L [place] Creatinine [Mass/Vol] 1.97 mg/dL High 0.7 - 1.2 mg/dL [place] GFR 41 Low >60 [place] Comment on above: >60 mL/min/1.73m2 EG FR, calc. for ages 18 and older using the MDRD formula (not corrected for weight), is valid for stable renal function. GFR Non- 33.9 Low >60 [place] Comment on above: >60 mL/min/1.73m2 EG FR, calc. for ages 18 and older using the MDRD formula (not corrected for weight), is valid for stable renal function. Globulin (S) [Mass/Vol] 3 g/dL 2.3 - 3.5 g/dL [place] Glucose [Mass/Vol] 281 mg/dL High 70 - 99 mg/dL [place] Potassium [Moles/Vol] 5.9 mmol/L High [place] Protein [Mass/Vol] 6.7 g/dL 6.3 - 8 g/dL [place] Sodium [Moles/Vol] 128 mmol/L Low [place] Urea nitrogen [Mass/Vol] 20 mg/dL 8 - 23 mg/dL [place] Creatine Kinaseon 04-07-2019 CK [Catalytic activity/Vol] 255 U/L Critically high 0-190 [facility] Comment on above: Performed By: #### P T #### [facility] [address] [place] [address] Culture, Blood 2on 9 Culture, Blood 2 OR DERED BY: JOSE DAVID ADMIAN SOURCE: Blood COLLECTED: 04/07/19 18:56 ANTIBIOTICS AT JIMENA.: RECEIVED : 04/07/19 19:04 Culture, Blood 2 FINAL 04/12/19 20:15 No growth after 5 days of incubation. Normal [facility] Comment on above: Performed By: #### T S3C #### [facility] [address] [place] [address] Culture, Urineon 04-07-2019 Culture, Urine OR DERED BY: JOSE DAVID DAMIAN SOURCE: Urine Clean Catch COLLECTED: 04/07/19 18:30 ANTIBIOTICS AT JIMEAN.: RECEIVED : 04/07/19 21:27 Culture, Urine FINAL 04/09/19 10:13 No growth 24 hours Normal [facility] Comment on above: Performed By: #### P GLU #### [facility] [address] [place] [id number] Lactate, Sepsison 04-07-2019 Lactate, Sepsis 3.4 mmol/L Critically high 0.5-1.9 [facility] Comment on above: Order Comment: CALL [facility]ED tel. [phone],Lactic acid result called to and read back by ROSA Damian, 04/07/2019 19:56,by VIANEY Performed By: #### B MP #### [facility] [address] [place] [address] Interpretation and review of laboratory results Abnormal [place] Lactic Acid, Sepsis 3.4 mmol/L Critically high 0.5 - 1.9 mmol/L [place] CALL [facility] tel. [phone], Lactic acid result called to and read back by ROSA Damian, 04/07/2019 19:56, by VIANEY [place] Lactic Acidon 04-07-2019 Lactate [Moles/Vol] 2.9 mmol/L Critically high 0.5-2.2 [facility] Comment on above: Performed By: #### B MP #### [facility] [address] [place] [address] Lactic Acid, Plasmaon 2018 Interpretation and review of laboratory results Abnormal [place] Lactate [Moles/Vol] 2.9 mmol/L High 0.5 - 2.2 mmol/L [place] Lipaseon 04-07-2019 Lipase [Catalytic activity/Vol] 25 U/L Normal 12-95 [facility] Comment on above: Performed By: #### P T #### [facility] [address] [place] [address] Lipase [Catalytic activity/Vol] 25 U/L 12 - 95 U/L [place] MRI LUMBAR SPINE W WO CONTRA [...] Fabio Bautista MD 04/08/19 Final result Normal [facility] Magnesiumon 04-07-2019 Magnesium [Mass/Vol] 1.7 mg/dL Normal 1.7-2.4 [facility] Comment on above: Performed By: #### P T #### [facility] [address] [place] [address] Magnesium [Mass/Vol] 1.7 mg/dL 1.7 - 2.4 mg/dL [place] Microscopic Urinalysison Bacteria, UA Negative /HPF [place] Epi Cells 0-2 [place] Hyaline Casts, UA 5-10 [place] RBC (U) [#/Vol] 0-2 [place] WBC, UA 0-2 [place] Otheron 04-07-2019 Interpretation and review of laboratory results Abnormal [place] Interpretation and review of laboratory results Abnormal [place] POCT Venouson 04-07-2019 Base Excess, Romero -6 Low [place] Calcium [Mass/Vol] 1.05 mmol/L Low 1.12 - 1.32 mmol/L [place] Chloride [Moles/Vol] 101 mmol/L [place] Creatinine [Mass/Vol] 1.7 mg/dL High 0.8 - 1.3 mg/dL [place] FIO2 28 [place] GFR 49 Abnormal >60 [place] Comment on above: >60 mL/min/1.73m2 EG FR, calc. for ages 18 and older using the MDRD formula (not corrected for weight), is valid for stable renal function. GFR Non- 40 Abnormal >60 [place] Comment on above: >60 mL/min/1.73m2 EG FR, calc. for ages 18 and older using the MDRD formula (not corrected for weight), is valid for stable renal function. Glucose [Mass/Vol] 233 mg/dL High 60 - 115 mg/dl [place] HCO3, Venous 20.7 mmol/L Low 23 - 29 mmol/L [place] Hematocrit (Bld) [Volume fraction] 33 % Low 41 - 53 % [place] Hemoglobin (Bld) [Mass/Vol] 11.2 g/dL Low [place] Interpretation and review of laboratory results Abnormal [place] Lactate [Moles/Vol] 3.67 mmol/L High 0.4 - 2 mmol/L [place] Oxygen saturation in Blood 42 % Not Established [place] pCO2, Romero 43.9 [place] Performed on SEE BELOW [place] Comment on above: Performed on POC Sample Type: Venous Oxygen Delivery System: Cannula pH, Romero 7.282 Low [place] pO2, Romero 27 Not Established mm Hg [place] Potassium [Moles/Vol] 4.4 mmol/L [place] Sample Type ROMERO [place] Sodium [Moles/Vol] 133 mmol/L Low [place] TC02 (Calc), Romero 22 mmol/L Not Established [place] Partial Thromboplastin Timeo n 04-07-2019 aPTT Coag (Bld) [Time] 36.7 s Normal 24.4-36.8 [facility] Comment on above: Result Comment: Koko ctive 12/03/2018: Please note methodology and/or reference ranges have changed. aPTT - Heparin Therapeutic Range: 74.0 - 106 seconds Performed By: #### P T #### [facility] [address] [place] [address] Procalcitoninon 04-07-2019 Procalcitonin 0.55 ng/mL Critically high 0.00-0.15 [facility] Comment on above: Result Comment: Refe [...] failure. Performed By: #### P T #### [facility] [address] [place] [address] Procalcitonin 0.55 ng/mL High 0 - 0.15 ng/mL [facility], [place] Comment on above: Reference Range: Adults: <=0.15 [...] Coag (PPP) [Relative time] 1.2 {INR} Normal [facility] Comment on above: Result Comment: Warf brian Therapy INR Therapeutic: 2.0-3.0 With Mechanical Valve: >2.5 Low-intensity Therapeutic Range: 1.5-2.0 Mod-intensity Therapeutic Range: 2.0-3.0 High-intensity Therapeutic Range: 2.5-3.5 HIgh-intensity Therapeutic Range: 3.0-4.0 Common Critical/Alarm Value: 5.0 Common Upper Limit Reported: 10.0 Effective 11/26/2018: Please note methodology and/or reference ranges have changed. Performed By: #### P T #### [facility] [address] [facility] [address] PT Coag (PPP) [Time] 15.7 s Critically high 12.3-14.9 [facility] Comment on above: Result Comment: Effe ctive 11/26/18 Please note methodology and/or reference ranges have changed. Performed By: #### P T #### [facility] [address] [facility] [address] Protime-INRon 04-07-2019 INR Coag (PPP) [Relative time] 1.2 {INR} [facility] Comment on above: Warfarin Therapy INR Therapeutic: 2.0-3.0 With Mechanical Valve: >2.5 Low-intensity Therapeutic Range: 1.5-2.0 Mod-intensity Therapeutic Range: 2.0-3.0 High-intensity Therapeutic Range: 2.5-3.5 HIgh-intensity Therapeutic Range: 3.0-4.0 Common Critical/Alarm Value: 5.0 Common Upper Limit Reported: 10.0 Effective 11/26/2018: Please note methodology and/or reference ranges have changed. Interpretation and review of laboratory results Abnormal [place] PT Coag (PPP) [Time] 15.7 s High [place] Comment on above: Effective 11/26/18 Please note methodology and/or reference ranges have changed. Rapid Influenza A/B Antigens on 04-07-2019 Influenza A by PCR Negative [place] Comment on above: Effective 01/07/19 Please note methodology and/or reference ranges have changed. Influenza B by PCR Negative [place] Comment on above: Effective 01/07/19 Please note methodology and/or reference ranges have changed. TSH w/out Reflexon 9 TSH Qn 4.350 uIU/mL Critically high 0.440-3.86 [facility] Comment on above: Performed By: #### P T #### [facility] [address] [facility] [address] TSH without Reflexon 019 TSH Qn 4.350 m[IU]/L [place] Troponinon 04-07-2019 Troponin I.cardiac [Mass/Vol] ng/mL Normal 0.000-0.01 [facility] Comment on above: Result Comment: Meth odology by Troponin T. Performed By: #### P T #### [facility] [address] [facility] [address] Troponin I.cardiac [Mass/Vol] ng/mL 0 - 0.01 ng/mL [place] Comment on above: Methodology by Sunday Muir Urinalysis Reflex to Culture on 04-07-2019 Bilirubin Urine SMALL Abnormal Negative [place] Blood, Urine Negative Negative [place] Clarity, UA Clear Clear [place] Color, UA ORANGE Abnormal Straw/Yellow [place] Glucose, Ur 250 mg/dL Abnormal Negative [place] Interpretation and review of laboratory results Abnormal [place] Ketones Ql (U) TRACE Abnormal Negative mg/dL [place] Leukocyte esterase Test strip Ql (U) Negative Negative [place] Nitrite, Urine Negative Negative [place] pH, UA 5.0 [place] Protein (U) [Mass/Vol] 30 mg/dL Abnormal Negative [place] Specific [place], UA 1.025 [place] Urine Reflex to Culture YES [place] Urobilinogen, Urine 1.0 <2.0 E.U./dL [place] Urinalysis, reflex to cultur fabiola 04-07-2019 Bilirubin Ql (U) SMALL Abnormal Negative [facility] Comment on above: Performed By: #### B MP #### [facility] [address] [place] [address] Clarity (U) Clear Normal Clear [facility] Comment on above: Performed By: #### B MP #### [facility] [address] [place] [address] Color (U) ORANGE Abnormal Straw/Floyd [facility] Comment on above: Performed By: #### B MP #### [facility] [address] [place] [address] Glucose Ql (U) 250 mg/dL Abnormal Negative [facility] Comment on above: Performed By: #### B MP #### [facility] [address] [place] [address] Hemoglobin Ql (U) Negative Normal Negative [facility] Comment on above: Performed By: #### B MP #### [facility] [address] [place] [address] Ketones Ql (U) TRACE Abnormal Negative [facility] Comment on above: Performed By: #### B MP #### [facility] [address] [place] [address] Leukocyte esterase Test strip Ql (U) Negative Normal Negative [facility] Comment on above: Performed By: #### B MP #### [facility] [address] [place] [address] Nitrite Ql (U) Negative Normal Negative [facility] Comment on above: Performed By: #### B MP #### [facility] [address] [place] [address] pH (U) 5.0 [pH] Normal 5.0-9.0 [facility] Comment on above: Performed By: #### B MP #### [facility] [address] [place] [address] Protein Ql (U) 30 mg/dL Abnormal Negative [facility] Comment on above: Performed By: #### B MP #### [facility] [address] [place] [address] Specific gravity (U) [Rel density] 1.025 Normal 1.005-1.03 [facility] Comment on above: Performed By: #### B MP #### [facility] [address] [place] [address] Urine Reflexed to Culture YES Normal [facility] Comment on above: Performed By: #### B MP #### [facility] [address] [place] [address] Urobilinogen Qn (U) 1.0 {Yared'U}/dL Normal < 2.0 [facility] Comment on above: Performed By: #### B MP #### [facility] [address] [place] [address] Urine Microscopicon 11-20-20 19 Bacteria LM.HPF (Urine sed) [#/Area] Negative Normal [facility] Comment on above: Performed By: #### B MP #### [facility] [address] [place] [address] RBC (U) [#/Vol] 0-2 Normal 0-5 [facility] Comment on above: Performed By: #### B MP #### [facility] [address] [place] [address] Urine Epithelial Cells Auto 0-2 Normal 0-5 [facility] Comment on above: Performed By: #### B MP #### [facility] [address] [place] [address] Urine Hyaline Casts Auto 5-10 Normal 0-5 [facility] Comment on above: Performed By: #### B MP #### [facility] [address] [place] [address] Urine WBC Auto 0-2 Normal 0-5 [facility] Comment on above: Performed By: #### B MP #### [facility] [address] [place] [address] XR CHEST PORTABLEon 04-07-20 19 XR CHEST [...] Fabio Bautista MD 04/08/19 Final result Normal [facility] proBNPon 04-07-2019 Natriuretic peptide B (Bld) [Mass/Vol] 597 pg/mL Normal [facility] Comment on above: Result Comment: NT-p ro [...] 2006;27:330-337 Performed By: #### P T #### [facility] [address] [place] [address] [place] LESS THAN 1 HOURon 2018 [place] [...] Fabio Bautista MD 04/06/19 Final result Normal [facility] POCT Glucoseon 04-05-2019 Glucose [Mass/Vol] 164 mg/dL Critically high 60-115 [facility] Comment on above: Performed By: #### P GLU #### [facility] [address] [facility] [address] POC [facility] Comment on above: Performed By: #### P GLU #### [facility] [address] [facility] [address] Glucose [Mass/Vol] 164 mg/dL High 60 - 115 mg/dl [place] Interpretation and review of laboratory results Abnormal [place] Glucose [Mass/Vol] 189 mg/dL Critically high 60-115 [facility] Comment on above: Performed By: #### P GLU #### [facility] [address] [facility] [address] POC Performed on [facility] Comment on above: Performed By: #### P GLU #### [facility] [address] [facility] [address] Glucose [Mass/Vol] 189 mg/dL High 60 - 115 mg/dl [place] Interpretation and review of laboratory results Abnormal [place] Performed on ACCU-[place] Prothrombin Timeon 9 INR Coag (PPP) [Relative time] 1.0 {INR} Normal [facility] Comment on above: Result Comment: Warf brian Therapy INR Therapeutic: 2.0-3.0 With Mechanical Valve: >2.5 Low-intensity Therapeutic Range: 1.5-2.0 Mod-intensity Therapeutic Range: 2.0-3.0 High-intensity Therapeutic Range: 2.5-3.5 HIgh-intensity Therapeutic Range: 3.0-4.0 Common Critical/Alarm Value: 5.0 Common Upper Limit Reported: 10.0 Effective 11/26/2018: Please note methodology and/or reference ranges have changed. Performed By: #### P T #### [facility] [address] [facility] [address] PT Coag (PPP) [Time] 13.4 s Normal 12.3-14.9 [facility] Comment on above: Result Comment: Effe ctive 11/26/18 Please note methodology and/or reference ranges have changed. Performed By: #### P T #### [facility] [address] [facility] [address] Protime-INRon 04-05-2019 INR Coag (PPP) [Relative time] 1.0 {INR} [facility] Comment on above: Warfarin Therapy INR Therapeutic: 2.0-3.0 With Mechanical Valve: >2.5 Low-intensity Therapeutic Range: 1.5-2.0 Mod-intensity Therapeutic Range: 2.0-3.0 High-intensity Therapeutic Range: 2.5-3.5 HIgh-intensity Therapeutic Range: 3.0-4.0 Common Critical/Alarm Value: 5.0 Common Upper Limit Reported: 10.0 Effective 11/26/2018: Please note methodology and/or reference ranges have changed. PT Coag (PPP) [Time] 13.4 s [facility] Comment on above: Effective 11/26/18 Please note methodology and/or reference ranges have changed. EKG 12 Leadon 04-01-2019 Atrial Rate 76 BPM [facility] P Barry 47 degrees [facility] P-R Interval 178 ms [facility] Q-T Interval 378 ms [facility] QRS Duration 80 ms [facility] QTc Calculation (Bazett) 425 ms [place] R Barry -2 degrees [place] T Barry 22 degrees [facility] Ventricular Rate 76 BPM [place] Normal sinus rhythm Cannot rule out Inferior infarct , age undetermined Abnormal ECG No previous ECGs available Confirmed by Juan Vitale ([id number]) on 04/01/2019 7:17:49 AM [place] Phillip, Chpo Incoming R esults From [place] - 04/01/2019 7:18 AM EST Normal sinus rhythm Cannot rule out Inferior infarct , age undetermined Abnormal ECG No previous ECGs available Confirmed by Juan Vitale () on 04/01/2019 7:17:49 AM [place] Basic Metabolic Panelon 03-19 Calcium [Mass/Vol] 9.0 mg/dL Normal 8.5-9.9 [facility] Comment on above: Performed By: #### B MP #### [facility] [address] [place] [address] Chloride [Moles/Vol] 98 mmol/L Normal 95-107 [facility] Comment on above: Performed By: #### B MP #### [facility] [address] [place] [address] CO2 [Moles/Vol] 25 mmol/L Normal 20-31 [facility] Comment on above: Performed By: #### B MP #### [facility] [address] [place] [address] Creatinine [Mass/Vol] 1.72 mg/dL Critically high 0.70-1.20 [facility] Comment on above: Performed By: #### B MP #### [facility] [address] [place] [address] GFR/1.73 sq M predicted among blacks MDRD (S/P/Bld) [Vol rate/Area] 48.0 mL/min/{1.73_m2} Low >60 [facility] Comment on above: Result Comment: >60 mL/min/1.73m2 EGFR, calc. for ages 18 and older using the MDRD formula (not corrected for weight), is valid for stable renal function. Performed By: #### B MP #### [facility] [address] [place] [address] GFR/1.73 sq M.predicted MDRD (S/P/Bld) [Vol rate/Area] 39.7 mL/min/{1.73_m2} Low >60 [facility] Comment on above: Result Comment: >60 mL/min/1.73m2 EGFR, calc. for ages 18 and older using the MDRD formula (not corrected for weight), is valid for stable renal function. Performed By: #### B MP #### [facility] [address] [place] [address] Glucose [Mass/Vol] 367 mg/dL Critically high 70-99 [facility] Comment on above: Performed By: #### B MP #### [facility] [address] [place] [address] Potassium [Moles/Vol] 4.5 mmol/L Normal 3.4-4.9 [facility] Comment on above: Performed By: #### B MP #### [facility] [address] [place] [address] Sodium [Moles/Vol] 136 mmol/L Normal 135-144 [facility] Comment on above: Performed By: #### B MP #### [facility] [address] [place] [address] Urea nitrogen [Mass/Vol] 23 mg/dL Normal 8-23 [facility] Comment on above: Performed By: #### B MP #### [facility] [address] [place] [address] Anion gap [Moles/Vol] 13 mmol/L Normal 9-15 [facility] Comment on above: Performed By: #### B MP #### [facility] [address] [place] [address] Anion gap [Moles/Vol] 13 mmol/L [facility] [place] Calcium [Mass/Vol] 9.0 mg/dL 8.5 - 9.9 mg/dL [place] Chloride [Moles/Vol] 98 mmol/L [place] CO2 [Moles/Vol] 25 mmol/L [place] Creatinine [Mass/Vol] 1.72 mg/dL High 0.7 - 1.2 mg/dL [place] GFR 48 Low >60 [place], [place] Comment on above: >60 mL/min/1.73m2 EG FR, calc. for ages 18 and older using the MDRD formula (not corrected for weight), is valid for stable renal function. GFR Non- 39.7 Low >60 [place] Comment on above: >60 mL/min/1.73m2 EG FR, calc. for ages 18 and older using the MDRD formula (not corrected for weight), is valid for stable renal function. Glucose [Mass/Vol] 367 mg/dL High 70 - 99 mg/dL [place] Interpretation and review of laboratory results Abnormal [place] Potassium [Moles/Vol] 4.5 mmol/L [place] Sodium [Moles/Vol] 136 mmol/L [place] Urea nitrogen [Mass/Vol] 23 mg/dL 8 - 23 mg/dL [place] CBCon 03-30-2019 Erythrocyte distribution width (RBC) [Ratio] 12.7 % 11.5 - 14.5 % [place] Hematocrit (Bld) [Volume fraction] 42.4 % 42 - 52 % [place] Hemoglobin (Bld) [Mass/Vol] 14.3 g/dL 14 - 18 g/dL [place] Interpretation and review of laboratory results Abnormal [place] MCH (RBC) [Entitic mass] 30.8 pg 27 - 31.3 pg [place] MCHC (RBC) [Mass/Vol] 33.7 % 33 - 37 % [place] MCV (RBC) [Entitic vol] 91.3 fL 80 - 100 fL [place] Platelets (Bld) [#/Vol] 213 10*3/uL 130 - 400 K/uL [place] RBC (Bld) [#/Vol] 4.65 10*6/uL Low [place] WBC (Bld) [#/Vol] 8.2 10*3/uL 4.8 - 10.8 K/uL [place] CBC With Platelet No Differe ntialon 03-30-2019 Erythrocyte distribution width (RBC) [Ratio] 12.7 % Normal 11.5-14.5 [facility] Comment on above: Performed By: #### C BCND #### [facility] [address] [place] [address] Hematocrit (Bld) [Volume fraction] 42.4 % Normal 42.0-52.0 [facility] Comment on above: Performed By: #### C BCND #### [facility] [address] [place] [address] Hemoglobin (Bld) [Mass/Vol] 14.3 g/dL Normal 14.0-18.0 [facility] Comment on above: Performed By: #### C BCND #### [facility] [address] [place] [address] MCH (RBC) [Entitic mass] 30.8 pg Normal 27.0-31.3 [facility] Comment on above: Performed By: #### C BCND #### [facility] [address] [place] [address] MCHC (RBC) [Mass/Vol] 33.7 % Normal 33.0-37.0 [facility] Comment on above: Performed By: #### C BCND #### [facility] [address] [place] [address] MCV (RBC) [Entitic vol] 91.3 fL Normal 80.0-100.0 [facility] Comment on above: Performed By: #### C BCND #### [facility] [address] [place] [address] Platelets (Bld) [#/Vol] 213 10*3/uL Normal 130-400 [facility] Comment on above: Performed By: #### C BCND #### [facility] [address] [place] [address] RBC (Bld) [#/Vol] 4.65 10*6/uL Low 4.70-6.10 [facility] Comment on above: Performed By: #### C BCND #### [facility] [address] [place] [address] WBC (Bld) [#/Vol] 8.2 10*3/uL Normal 4.8-10.8 [facility] Comment on above: Performed By: #### C BCND #### [facility] [address] [place] [address] Hemoglobin A1Con 03-30-2019 HbA1c (Bld) [Mass fraction] 9.8 % High 4.8 - 5.9 % [place] Interpretation and review of laboratory results Abnormal [place] Hemoglobin A1con 03-30-2019 HbA1c (Bld) [Mass fraction] 9.8 % Critically high 4.8-5.9 [facility] Comment on above: Performed By: #### A 1C #### [facility] [address] [facility] [address] Prothrombin Timeon 9 INR Coag (PPP) [Relative time] 1.9 {INR} Normal [facility] Comment on above: Result Comment: Warf brian Therapy INR Therapeutic: 2.0-3.0 With Mechanical Valve: >2.5 Low-intensity Therapeutic Range: 1.5-2.0 Mod-intensity Therapeutic Range: 2.0-3.0 High-intensity Therapeutic Range: 2.5-3.5 HIgh-intensity Therapeutic Range: 3.0-4.0 Common Critical/Alarm Value: 5.0 Common Upper Limit Reported: 10.0 Effective 11/26/2018: Please note methodology and/or reference ranges have changed. Performed By: #### P T #### [facility] [address] [facility] [address] PT Coag (PPP) [Time] 22.6 s Critically high 12.3-14.9 [facility] Comment on above: Result Comment: Effe ctive 11/26/18 Please note methodology and/or reference ranges have changed. Performed By: #### P T #### [facility] [address] [place] [address] Protime-INRon 03-30-2019 INR Coag (PPP) [Relative time] 1.9 {INR} [place] Comment on above: Warfarin Therapy INR Therapeutic: 2.0-3.0 With Mechanical Valve: >2.5 Low-intensity Therapeutic Range: 1.5-2.0 Mod-intensity Therapeutic Range: 2.0-3.0 High-intensity Therapeutic Range: 2.5-3.5 HIgh-intensity Therapeutic Range: 3.0-4.0 Common Critical/Alarm Value: 5.0 Common Upper Limit Reported: 10.0 Effective 11/26/2018: Please note methodology and/or reference ranges have changed. Interpretation and review of laboratory results Abnormal [place] PT Coag (PPP) [Time] 22.6 s High [place] Comment on above: Effective 11/26/18 Please note methodology and/or reference ranges have changed. TYPE AND SCREENon 03-30-2019 ABO/Rh Positive [place] Type and Screen Capture 3 sc rn cellon 03-30-2019 Type and Screen Capture 3 scrn cell PATIENT: SEVERO Shrestha LOC: [facility]# : [id number] : 1950 SEX: M ORDERED BY: HAYDER Orourke ORDERED : 03/30/2019 12:58 COLLECTED: 03/30/2019 13:32 ORDER : [id number] RECEIVED : 03/30/2019 13:32 TEST NAME RESULT UNITS RANGES ABN FL ST ABORH Capture A POS F Antibody 3 Cell Scrn Captu NEG F Normal [facility] Comment on above: Performed By: #### T S3C #### [facility] [address] [place] [address] CBC AND DIFFERENTIALon 04-08 % AUTOMATED IMMATURE GRAN Canceled Normal [facility] Comment on above: Order Comment: TEST CBC AND DIFFERENTIAL WAS CANCELLED, 04/08/2018 04:30 ?Cancel Reason:Patient Discharged. Result Comment: Perc ent differential counts (%) should be interpreted in the context of the absolute cell counts (cells/L). Performed By: #### C BC ####[id number] [place] [address] % NEUTROPHIL Canceled Normal [facility] Comment on above: Order Comment: TEST CBC AND DIFFERENTIAL WAS CANCELLED, 04/08/2018 04:30 ?Cancel Reason:Patient Discharged. Performed By: #### C BC ####[id number] [place] [address] Basophils/100 WBC Auto (Bld) Canceled Normal [facility] Comment on above: Order Comment: TEST CBC AND DIFFERENTIAL WAS CANCELLED, 04/08/2018 04:30 ?Cancel Reason:Patient Discharged. Performed By: #### C BC ####[id number] [place] [address] DIFFERENTIAL Canceled Normal [facility] Comment on above: Order Comment: TEST CBC AND DIFFERENTIAL WAS CANCELLED, 04/08/2018 04:30 ?Cancel Reason:Patient Discharged. Performed By: #### C BC ####[id number] [place] [address] Eosinophils Auto #/vol (Bld) Canceled Normal [facility] Comment on above: Order Comment: TEST CBC AND DIFFERENTIAL WAS CANCELLED, 04/08/2018 04:30 ?Cancel Reason:Patient Discharged. Performed By: #### C BC ####[id number] [place] [address] Eosinophils/100 WBC Auto (Bld) Canceled Normal [facility] Comment on above: Order Comment: TEST CBC AND DIFFERENTIAL WAS CANCELLED, 04/08/2018 04:30 ?Cancel Reason:Patient Discharged. Performed By: #### C BC ####[id number] [place] [address] Erythrocyte distribution width Auto Ratio (RBC) Canceled Normal [facility] Comment on above: Order Comment: TEST CBC AND DIFFERENTIAL WAS CANCELLED, 04/08/2018 04:30 ?Cancel Reason:Patient Discharged. Performed By: #### C BC ####[id number] [place] [address] Hematocrit Auto Volume Fraction (Bld) Canceled Normal [facility] Comment on above: Order Comment: TEST CBC AND DIFFERENTIAL WAS CANCELLED, 04/08/2018 04:30 ?Cancel Reason:Patient Discharged. Performed By: #### C BC ####[id number] [place] [address] Hemoglobin mass conc (Bld) Canceled Normal [facility] Comment on above: Order Comment: TEST CBC AND DIFFERENTIAL WAS CANCELLED, 04/08/2018 04:30 ?Cancel Reason:Patient Discharged. Performed By: #### C BC ####[id number] [place] [address] Lymphocytes Auto #/vol (Bld) Canceled Normal [facility] Comment on above: Order Comment: TEST CBC AND DIFFERENTIAL WAS CANCELLED, 04/08/2018 04:30 ?Cancel Reason:Patient Discharged. Performed By: #### C BC ####[id number] [place] [address] Lymphocytes/100 WBC Auto (Bld) Canceled Normal [facility] Comment on above: Order Comment: TEST CBC AND DIFFERENTIAL WAS CANCELLED, 04/08/2018 04:30 ?Cancel Reason:Patient Discharged. Performed By: #### C BC ####[id number] [place] [address] MCHC Auto mass conc (RBC) Canceled Normal [facility] Comment on above: Order Comment: TEST CBC AND DIFFERENTIAL WAS CANCELLED, 04/08/2018 04:30 ?Cancel Reason:Patient Discharged. Performed By: #### C BC ####[id number] [place] [address] MCV Auto Entitic volume (RBC) Canceled Normal [facility] Comment on above: Order Comment: TEST CBC AND DIFFERENTIAL WAS CANCELLED, 04/08/2018 04:30 ?Cancel Reason:Patient Discharged. Performed By: #### C BC ####[id number] [place] [address] Monocytes Auto #/vol (Bld) Canceled Normal [facility] Comment on above: Order Comment: TEST CBC AND DIFFERENTIAL WAS CANCELLED, 04/08/2018 04:30 ?Cancel Reason:Patient Discharged. Performed By: #### C BC ####[id number] [place] [address] Neutrophils Auto #/vol (Bld) Canceled Normal [facility] Comment on above: Order Comment: TEST CBC AND DIFFERENTIAL WAS CANCELLED, 04/08/2018 04:30 ?Cancel Reason:Patient Discharged. Performed By: #### C BC ####[id number] [place] [address] Nucleated RBC/100 WBC Ratio (Bld) Canceled Normal [facility] Comment on above: Order Comment: TEST CBC AND DIFFERENTIAL WAS CANCELLED, 04/08/2018 04:30 ?Cancel Reason:Patient Discharged. Performed By: #### C BC ####[id number] [place] [address] Platelets Auto #/vol (Bld) Canceled Normal [facility] Comment on above: Order Comment: TEST CBC AND DIFFERENTIAL WAS CANCELLED, 04/08/2018 04:30 ?Cancel Reason:Patient Discharged. Performed By: #### C BC ####[id number] [place] [address] RBC Auto #/vol (Bld) Canceled Normal [facility] Comment on above: Order Comment: TEST CBC AND DIFFERENTIAL WAS CANCELLED, 04/08/2018 04:30 ?Cancel Reason:Patient Discharged. Performed By: #### C BC ####[id number] [place] [address] WBC Auto #/vol (Bld) Canceled Normal [facility] Comment on above: Order Comment: TEST CBC AND DIFFERENTIAL WAS CANCELLED, 04/08/2018 04:30 ?Cancel Reason:Patient Discharged. Performed By: #### C BC ####[id number] [place] [address] MAGNESIUMon 04-08-2018 Magnesium mass conc Canceled Normal [facility] Comment on above: Order Comment: TEST MAGNESIUM WAS CANCELLED, 04/08/2018 04:30 ?Cancel Reason: PatientDischarged. Performed By: #### C BC ####[id number] [place] [address] PT/INRon 04-08-2018 INR Coag RelTime (PPP) Canceled Normal [facility] Comment on above: Order Comment: TEST PT/INR WAS CANCELLED, 04/08/2018 04:30 ?Cancel Reason: PatientDischarged. Performed By: #### C BC ####[id number] [place] [address] Prothrombin time (PT) Coag time (PPP) Canceled Normal [facility] Comment on above: Order Comment: TEST PT/INR WAS CANCELLED, 04/08/2018 04:30 ?Cancel Reason: PatientDischarged. Result Comment: Note new reference range as of 03/10/2018. Performed By: #### C BC ####[id number] [place] [address] RENAL FUNCTION PANELon 04-08 Albumin mass conc Canceled Normal [facility] Comment on above: Order Comment: TEST RENAL FUNCTION PANEL WAS CANCELLED, 04/08/2018 04:30 ?Cancel Reason:Patient Discharged. Performed By: #### C BC ####[id number] [place] [address] Anion gap 3 molar conc Canceled Normal [facility] Comment on above: Order Comment: TEST RENAL FUNCTION PANEL WAS CANCELLED, 04/08/2018 04:30 ?Cancel Reason:Patient Discharged. Performed By: #### C BC ####[id number] [place] [address] Calcium mass conc Canceled Normal [facility] Comment on above: Order Comment: TEST RENAL FUNCTION PANEL WAS CANCELLED, 04/08/2018 04:30 ?Cancel Reason:Patient Discharged. Performed By: #### C BC ####[id number] [place] [address] Chloride molar conc Canceled Normal [facility] Comment on above: Order Comment: TEST RENAL FUNCTION PANEL WAS CANCELLED, 04/08/2018 04:30 ?Cancel Reason:Patient Discharged. Performed By: #### C BC ####[id number] [place] [address] Creatinine mass conc Canceled Normal [facility] Comment on above: Order Comment: TEST RENAL FUNCTION PANEL WAS CANCELLED, 04/08/2018 04:30 ?Cancel Reason:Patient Discharged. Performed By: #### C BC ####[id number] [place] [address] GFR- AM. Canceled Normal [facility] Comment on above: Order Comment: TEST RENAL FUNCTION PANEL WAS CANCELLED, 04/08/2018 04:30 ?Cancel Reason:Patient Discharged. Result Comment: CALC ULATIONS OF ESTIMATED GFR ARE PERFORMED USING THE MDRD STUDY EQUATION FOR THE IDMS-TRACEABLE CREATININE METHODS. CLIN CHEM 2007;53:766-72 Performed By: #### C BC ####[id number] [place] [address] GFR-NON AM. Canceled Normal [facility] Comment on above: Order Comment: TEST RENAL FUNCTION PANEL WAS CANCELLED, 04/08/2018 04:30 ?Cancel Reason:Patient Discharged. Performed By: #### C BC ####[id number] [place] [address] Glucose mass conc Canceled Normal [facility] Comment on above: Order Comment: TEST RENAL FUNCTION PANEL WAS CANCELLED, 04/08/2018 04:30 ?Cancel Reason:Patient Discharged. Performed By: #### C BC ####[id number] [place] [address] HCO3 molar conc (Bld) Canceled Normal [facility] Comment on above: Order Comment: TEST RENAL FUNCTION PANEL WAS CANCELLED, 04/08/2018 04:30 ?Cancel Reason:Patient Discharged. Performed By: #### C BC ####[id number] [place] [address] Phosphate mass conc Canceled Normal [facility] Comment on above: Order Comment: TEST RENAL FUNCTION PANEL WAS CANCELLED, 04/08/2018 04:30 ?Cancel Reason:Patient Discharged. Result Comment: The performance characteristics of phosphorus testing in heparinized plasma have been validated by the individual laboratory site where testing is performed. Testing on heparinized plasma is not approved by the FDA; however, such approval is not necessary. Performed By: #### C BC ####[id number] [place] [address] Potassium molar conc Canceled Normal [facility] Comment on above: Order Comment: TEST RENAL FUNCTION PANEL WAS CANCELLED, 04/08/2018 04:30 ?Cancel Reason:Patient Discharged. Performed By: #### C BC ####[id number] [place] [address] Sodium molar conc Canceled Normal [facility] Comment on above: Order Comment: TEST RENAL FUNCTION PANEL WAS CANCELLED, 04/08/2018 04:30 ?Cancel Reason:Patient Discharged. Performed By: #### C BC ####[id number] [place] [address] Urea nitrogen mass conc Canceled Normal [facility] Comment on above: Order Comment: TEST RENAL FUNCTION PANEL WAS CANCELLED, 04/08/2018 04:30 ?Cancel Reason:Patient Discharged. Performed By: #### C BC ####[id number] [place] [address] CBCon 04-07-2018 Erythrocyte distribution width Auto Ratio (RBC) 13.1 % Normal 11.5 - 14.5 [facility] Comment on above: Performed By: #### C BC ####[id number] [place] [address] Hematocrit Auto Volume Fraction (Bld) 31.1 % Low 41.0 - 52.0 [facility] Comment on above: Performed By: #### C BC ####[id number] [place] [address] Hemoglobin mass conc (Bld) 10.3 g/dL Low 13.5 - 17.5 [facility] Comment on above: Performed By: #### C BC ####[id number] [place] [address] MCHC Auto mass conc (RBC) 33.1 g/dL Normal 32.0 - 36.0 [facility] Comment on above: Performed By: #### C BC ####[id number] [place] [address] MCV Auto Entitic volume (RBC) 93 fL Normal 80 - 100 [facility] Comment on above: Performed By: #### C BC ####[id number] [place] [address] Nucleated RBC/100 WBC Ratio (Bld) 0.0 /100 WBC Normal 0.0-0.0 [facility] Comment on above: Performed By: #### C BC ####[id number] [place] [address] Platelets Auto #/vol (Bld) 330 10*3/uL Normal 150 - 450 [facility] Comment on above: Performed By: #### C BC ####[id number] [place] [address] RBC Auto #/vol (Bld) 3.34 x10E12/L Low 4.50 - 5.90 [facility] Comment on above: Performed By: #### C BC ####[id number] [place] [address] WBC Auto #/vol (Bld) 11.8 10*3/uL High 4.4 - 11.3 [facility] Comment on above: Performed By: #### C BC ####[id number] [place] [address] Daily Progress Note-Cardiac Surgeryon 04-07-2018 Protein mass [...] feeling well. Objective Data: Objective Information: T [id number]/6195% Date/Time04/07 11: 11: 11: 11: 11:00Range(36C - 36.5C ) (67 - 84 ) (16 - 20 ) (105 - 136 )/ (61 - 84 ) (93% -98% ) Pain with Activity reported at 04/07 11:00: 0Pain at Rest reported at 04/07 11:00: 0 Mqxeezt64/20 2:51: Weight in kg (Weight (kg)) 107. 2:51: Weight in lbs ((lbs)) 237 ---- Intake and Output -----Mn/Dy/Year TimeIntakeOutputNetNov 2017 6:00 [id number] 2017 10:00 [id number] 2017 2:00 [id number] The Intake and Output Totals for the last 24 hours are:[id number] 8 Physical Exam: Constitutional: lying in bed; [...] Water Injectable: 25 gram(s) IntraVenous Push Every 05Ooqqjlb6. 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 [place] pressure and dyspnea. He as found to havebilat PEs, was started on Heparin gtt, and transferred to [facility]. He wasfound to have a troponin leak at 2.25. Cardiology was consulted and the patientwas diagnosed with ACS, NSTEMI. He underwent a TTE and cath. He had normal EF,mild AI, and triple vessel CAD so was transferred to [facility] for CABG eval.Pulm consulted for PE workup. [...] course: HTN, endo following for DM and Bunn's disease, insulin gtt;one CT with air leak [...] lauren- daily renal panel Endo - h/o Bunn's disease, DM, hypothyroidism- Appreciate endo recs, now have signed off as of 04/04- hydrocortisone taper ordered as per Endo recs for Brigida's- starting fludrocortisone 4 days per week on 04/06 as per Endo recs forAddison's- adjusted DM regimen as per Endo recs- continue levothyroxine- DM diet, accuchecks, SSI- 04/07 big machine consultant met with patient to go over discharge [...] stopped 04/03 when added heparin gtt- SCD's/Darlyn laue Disp- PT evaluation - home PT- anticipate discharge today, as INR is therapeutic- plan [facility] coumadin clinic under court administrator Dr Pisano- plan home health care coordinator and PT Plan of care discussed with Dr. Gaston Signature/Cosignature/Attestat ion:Provider/Team Contact Info-Pager Numbercardiac surgery [phone] Electronic Signatures:Alexandra Milligan (PAC) (Signed 07-Apr-2018 14:05)Authored: Service, Subjective Data, Objective Data, Assessment and Plan,Signature/Cosignature/Att estation Last Updated: 07-Apr-2018 14:05 by Alexandra Milligan (PAC) Normal [facility] GLUCOSE-POCTon 04-07-2018 Glucose mass conc 123 mg/dL High 74 - 99 [facility] Comment on above: Performed By: #### C BC ####[id number] [id number] Glucose mass conc 232 mg/dL High 74 - 99 [facility] Comment on above: Performed By: #### C BC ####[id number] [id number] HEPARIN ASSAY,UFHon 04-07-20 18 HEPARIN ASSAY,UFH Canceled Normal [facility] Comment on above: Order Comment: [...] please refer to local Pharmacy and the [facility] Guidelines for Anticoagulation therapy available on the [facility] intranet at:[email or web address]_[email or web address].aspx Performed By: #### C BC ####[id number] [place] [address] Order Comment: TEST HEPARIN ASSAY,UFH WAS CANCELLED, 04/07/2018 04:44 ?Cancel Reason:Discontinued. HEPARIN ASSAY,UFH 0.6 IU/mL Normal [facility] Comment on above: Result Comment: The therapeutic reference range for UFH may be either 0.3-0.6 IU/mL or 0.3-0.7 IU/mL based on the clinical setting for anticoagulant therapy and the associated nomogram used. For heparin dosing guidelines based on clinical scenario and Heparin Assay results, please refer to local Pharmacy and the [facility] Guidelines for Anticoagulation therapy available on the [facility] intranet at:[email or web address]_[email or web address].aspx Performed By: #### C BC ####[id number] [place] [address] MAGNESIUMon 04-07-2018 Magnesium mass conc 1.85 mg/dL Normal 1.60 - 2.40 [facility] Comment on above: Performed By: #### C BC ####[id number] [place] [address] PT/INRon 04-07-2018 INR Coag RelTime (PPP) 2.0 {INR} High 0.9 - 1.1 [facility] Comment on above: Performed By: #### C BC ####[id number] [place] [address] Prothrombin time (PT) Coag time (PPP) 22.4 s High 9.7 - 12.7 [facility] Comment on above: Result Comment: Note new reference range as of 03/10/2018. Performed By: #### C BC ####[id number] [place] [address] RENAL FUNCTION PANELon 04-07 Albumin mass conc 3.3 g/dL Low 3.4 - 5.0 [facility] Comment on above: Performed By: #### C BC ####[id number] [place] [address] Anion gap 3 molar conc 11 mmol/L Normal 10 - 20 [facility] Comment on above: Performed By: #### C BC ####[id number] [place] [address] Calcium mass conc 8.9 mg/dL Normal 8.6 - 10.6 [facility] Comment on above: Performed By: #### C BC ####[id number] [place] [address] Chloride molar conc 100 mmol/L Normal 98 - 107 [facility] Comment on above: Performed By: #### C BC ####[id number] [place] [address] Creatinine mass conc 1.38 mg/dL High 0.50 - 1.30 [facility] Comment on above: Performed By: #### C BC ####[id number] [place] [address] GFR- AM. 62 mL/min/1.73m2 Normal >60 [facility] Comment on above: Result Comment: CALC ULATIONS OF ESTIMATED GFR ARE PERFORMED USING THE MDRD STUDY EQUATION FOR THE IDMS-TRACEABLE CREATININE METHODS. CLIN CHEM 2007;53:766-72 Performed By: #### C BC ####[id number] [place] [address] GFR-NON AM. 51 mL/min/1.73m2 Abnormal >60 [facility] Comment on above: Performed By: #### C BC ####[id number] [place] [address] Glucose mass conc 121 mg/dL High 74 - 99 [facility] Comment on above: Performed By: #### C BC ####[id number] [place] [address] HCO3 molar conc (Bld) 30 mmol/L Normal 21 - 32 [facility] Comment on above: Performed By: #### C BC ####[id number] [place] [address] Phosphate mass conc 4.7 mg/dL Normal 2.5 - 4.9 [facility] Comment on above: Result Comment: The performance characteristics of phosphorus testing in heparinized plasma have been validated by the individual laboratory site where testing is performed. Testing on heparinized plasma is not approved by the FDA; however, such approval is not necessary. Performed By: #### C BC ####[id number] [place] [address] Potassium molar conc 4.2 mmol/L Normal 3.5 - 5.3 [facility] Comment on above: Performed By: #### C BC ####[id number] [place] [address] Sodium molar conc 137 mmol/L Normal 136 - 145 [facility] Comment on above: Performed By: #### C BC ####[id number] [place] [address] Urea nitrogen mass conc 26 mg/dL High 6 - 23 [facility] Comment on above: Performed By: #### C BC ####[id number] [place] [address] CBCon 04-06-2018 Erythrocyte distribution width Auto Ratio (RBC) 13.0 % Normal 11.5 - 14.5 [facility] Comment on above: Performed By: #### C BC ####[id number] [place] [address] Hematocrit Auto Volume Fraction (Bld) 31.7 % Low 41.0 - 52.0 [facility] Comment on above: Performed By: #### C BC ####[id number] [place] [address] Hemoglobin mass conc (Bld) 10.6 g/dL Low 13.5 - 17.5 [facility] Comment on above: Performed By: #### C BC ####[id number] [place] [address] MCHC Auto mass conc (RBC) 33.4 g/dL Normal 32.0 - 36.0 [facility] Comment on above: Performed By: #### C BC ####[id number] [place] [address] MCV Auto Entitic volume (RBC) 92 fL Normal 80 - 100 [facility] Comment on above: Performed By: #### C BC ####[id number] [place] [address] Nucleated RBC/100 WBC Ratio (Bld) 0.0 /100 WBC Normal 0.0-0.0 [facility] Comment on above: Performed By: #### C BC ####[id number] [place] [address] Platelets Auto #/vol (Bld) 304 10*3/uL Normal 150 - 450 [facility] Comment on above: Performed By: #### C BC ####[id number] [place] [address] RBC Auto #/vol (Bld) 3.44 x10E12/L Low 4.50 - 5.90 [facility] Comment on above: Performed By: #### C BC ####[id number] [place] [address] WBC Auto #/vol (Bld) 12.3 10*3/uL High 4.4 - 11.3 [facility] Comment on above: Performed By: #### C BC ####[id number] [place] [address] COAGULATION SCREENon 018 aPTT Coag time (Bld) 105 s Critically high 28 - 38 [facility] Comment on above: Order Comment: APTT CALLED RB TO ASHWIN JIANG , 04/06/2018 05:23 Result Comment: Note new reference range as of 03/10/2018. THE APTT IS NO LONGER USED FOR MONITORING UNFRACTIONATED HEPARIN THERAPY. FOR MONITORING HEPARIN THERAPY, USE THE HEPARIN ASSAY..APTT CALLED RB TO ASHWIN JIANG , 04/06/2018 05:23 Performed By: #### C BC ####[id number] [place] [address] INR Coag RelTime (PPP) 1.5 {INR} High 0.9 - 1.1 [facility] Comment on above: Order Comment: APTT CALLED RB TO ASHWIN JIANG , 04/06/2018 05:23 Performed By: #### C BC ####[id number] [place] [address] Prothrombin time (PT) Coag time (PPP) 16.5 s High 9.7 - 12.7 [facility] Comment on above: Order Comment: APTT CALLED RB TO ASHWIN JIANG , 04/06/2018 05:23 Result Comment: Note new reference range as of 03/10/2018. Performed By: #### C BC ####[id number] [place] [address] Daily Progress Note-Cardiac Surgeryon 04-06-2018 Protein mass conc Service: Cardiac Iris dane Subjective Data:DON ELKINS is a 67 year old Male who is Hospital Day # 20 and POD #6 for CABGx 3;-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 Overnight Events: Patient had an uneventful night. Objective Data: Objective Information: ---- Intake and Output -----Mn/Dy/Year TimeIntakeOutputNetNov 2017 6:00 [id number] 2017 10:00 [id number] 2017 2:00 [id number] The Intake and Output Totals for the last 24 hours are:[id number] 1 Intake Output Enteral - Oral 120 mL Urine 2725 mL Medicated IV Drips 434 mL T LBFVMaY9Cwrnw33.12402967/7394% Date/Time04/06 6: 6: 6: 6: 6:55Range(35.9C - 36.6C ) (65 - 77 ) (18 - 20 ) (111 - 132 )/ (67 - 76 ) (92%- 96% ) Ohgbaoh52/19 3:28: Weight in kg (Weight (kg)) 08407/19 3:28: Weight in lbs ((lbs)) 238.3 Physical [...] and behaviorSkin: warm and dryINCISIONS: midsternal, 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 Insulin Lispro (HumaLOG) Injectable: 6 unit(s) SubCutaneous [...] Water Injectable: 25 gram(s) IntraVenous Push Every 10Jghaxcr3. Glucagon Injectable: 1 mg IntraMuscular Every 15 Minutes4. Ondansetron Injectable: 4 mg IntraVenous Push Every 6 Hours5. 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 [place] and dys[place]. He as found to havebilat PEs, was started on Heparin gtt, and transferred to [facility]. He wasfound to have a troponin leak at 2.25. Cardiology was consulted and the patientwas diagnosed with ACS, NSTEMI. He underwent a TTE and cath. He had normal EF,mild AI, and triple vessel CAD so was transferred to [facility] for CABG eval.Pulm consulted for PE workup. Pt required unfractionated heparin infusion for7-10 days to take advantage of intrinsic fibrinolysis and clot stabilization,as well as an IVC filter.Endocrine consulted for evaluation of Bunn disease and treatment periop.Also managed DM. 03/23/2018 OPERATION/PROCEDURE: by Severiano RodriguezapInferior vena cava filter. 03/31/18 OPERATION/PROCEDURE: by Dr. 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, insulin gtt;one CT with air leak [...] lauren- daily renal panel Endo - h/o Bunn's disease, DM, hypothyroidism- Appreciate endo recs, now [...] PT- anticipate discharge when INR therapeutic- plan [facility] coumadin clinic under court administrator Dr Pisano- plan home health care coordinator and PT- continue to assess discharge needs Signature/Cosignature/Attestat ion:Provider/Team Contact Info-Pager Numberwillis surgery [phone] Electronic Signatures:Ludwig Riley (INSTRUCTOR GROUND SERVICES-PAPER SLITTER) (Signed 06-Apr-2018 18:26)Authored: Service, Subjective Data, Objective Data, Assessment and Plan,Signature/Cosignature/Att estation Last Updated: 06-Apr-2018 18:26 by Mary Munroe (INSTRUCTOR GROUND SERVICES-PAPER SLITTER) Normal [facility] GLUCOSE-POCTon 04-06-2018 Glucose mass conc 303 mg/dL High 74 - 99 [facility] Comment on above: Performed By: #### C BC ####[id number] [place] [address] Glucose mass conc 290 mg/dL High 74 - 99 [facility] Comment on above: Performed By: #### C BC ####[id number] [place] [address] Glucose mass conc 268 mg/dL High 74 - 99 [facility] Comment on above: Performed By: #### C BC ####[id number] [place] [address] Glucose mass conc 118 mg/dL High 74 - 99 [facility] Comment on above: Performed By: #### C BC ####[id number] [place] [address] HEPARIN ASSAY,UFHon 04-06-20 HEPARIN ASSAY,UFH 0.5 IU/mL Normal [facility] Comment on above: Result Comment: The therapeutic reference range for UFH may be either 0.3-0.6 IU/mL or 0.3-0.7 IU/mL based on the clinical setting for anticoagulant therapy and the associated nomogram used. For heparin dosing guidelines based on clinical scenario and Heparin Assay results, please refer to local Pharmacy and the [facility] Guidelines for Anticoagulation therapy available on the [facility] intranet at:[email or web address]_Guidelines_for_Anticoagu.aspx Performed By: #### C BC ####[id number] [place] [address] HEPARIN ASSAY,UFH 0.7 IU/mL Normal [facility] Comment on above: Result Comment: The therapeutic reference range for UFH may be either 0.3-0.6 IU/mL or 0.3-0.7 IU/mL based on the clinical setting for anticoagulant therapy and the associated nomogram used. For heparin dosing guidelines based on clinical scenario and Heparin Assay results, please refer to local Pharmacy and the [facility] Guidelines for Anticoagulation therapy available on the [facility] intranet at:[email or web address]/Pharmacy/Pages/[place]_[facility]_Guidelines_for_Anticoagu.aspx Performed By: #### C BC ####[id number] [id number] HEPARIN ASSAY,UFH Canceled Normal [facility] Comment on above: Order Comment: [...] please refer to local Pharmacy and the [facility] Guidelines for Anticoagulation therapy available on the [facility] intranet at:[email or web address]/Pharmacy/Pages/[place]_Guidelines_for_Anticoagu.aspx Performed By: #### C BC ####[id number] [id number] HEPARIN ASSAY,UFH Canceled Normal [facility] Comment on above: Order Comment: [...] please refer to local Pharmacy and the [facility] Guidelines for Anticoagulation therapy available on the [facility] intranet at:[email or web address]/Pages/[place]_Guidelines_for_Anticoagu.aspx Performed By: #### C BC ####[id number] [place] [address] HEPARIN ASSAY,UFH 0.8 IU/mL Normal [facility] Comment on above: Result Comment: The therapeutic reference range for UFH may be either 0.3-0.6 IU/mL or 0.3-0.7 IU/mL based on the clinical setting for anticoagulant therapy and the associated nomogram used. For heparin dosing guidelines based on clinical scenario and Heparin Assay results, please refer to local Pharmacy and the [facility] Guidelines for Anticoagulation therapy available on the [facility] intranet at:[email or web address]/Pages/[place]_Guidelines_for_Anticoagu.aspx Performed By: #### C BC ####[id number] [place] [address] MAGNESIUMon 04-06-2018 Magnesium mass conc 2.03 mg/dL Normal 1.60 - 2.40 [facility] Comment on above: Performed By: #### C BC ####[id number] [place] [address] Nutrition Therapy-Noteon Nutrition Therapy-Note Assessment Subjective/Objective:Note Type: Note Note Authored by: Registered Dietitian NutritionistPager Number: [phone] Nutrition Note:The patient is a 67 year [...] 11:27 by Claribel Damon (JASMEET VORA) Normal [facility] PT/INRon 04-06-2018 INR Coag RelTime (PPP) Canceled Normal [facility] Comment on above: Order Comment: TEST PT/INR WAS CANCELLED, 04/06/2018 09:51 NO SPECIMEN RECEIVED IN LAB. Performed By: #### C BC ####[id number] [place] [address] Prothrombin time (PT) Coag time (PPP) Canceled Normal [facility] Comment on above: Order Comment: TEST PT/INR WAS CANCELLED, 04/06/2018 09:51 NO SPECIMEN RECEIVED IN LAB. Result Comment: Note new reference range as of 03/10/2018. Performed By: #### C BC ####[id number] [place] [address] RENAL FUNCTION PANELon 04-06 Albumin mass conc 3.7 g/dL Normal 3.4 - 5.0 [facility] Comment on above: Performed By: #### C BC ####[id number] [place] [address] Anion gap 3 molar conc 13 mmol/L Normal 10 - 20 [facility] Comment on above: Performed By: #### C BC ####[id number] [place] [address] Calcium mass conc 9.0 mg/dL Normal 8.6 - 10.6 [facility] Comment on above: Performed By: #### C BC ####[id number] [place] [address] Chloride molar conc 98 mmol/L Normal 98 - 107 [facility] Comment on above: Performed By: #### C BC ####[id number] [place] [address] Creatinine mass conc 1.28 mg/dL Normal 0.50 - 1.30 [facility] Comment on above: Performed By: #### C BC ####[id number] [place] [address] GFR- AM. 68 mL/min/1.73m2 Normal >60 [facility] Comment on above: Result Comment: CALC ULATIONS OF ESTIMATED GFR ARE PERFORMED USING THE MDRD STUDY EQUATION FOR THE IDMS-TRACEABLE CREATININE METHODS. CLIN CHEM 2007;53:766-72 Performed By: #### C BC ####[id number] [place] [address] GFR-NON AM. 56 mL/min/1.73m2 Abnormal >60 [facility] Comment on above: Performed By: #### C BC ####[id number] [place] [address] Glucose mass conc 105 mg/dL High 74 - 99 [facility] Comment on above: Performed By: #### C BC ####[id number] [place] [address] HCO3 molar conc (Bld) 29 mmol/L Normal 21 - 32 [facility] Comment on above: Performed By: #### C BC ####[id number] [place] [address] Phosphate mass conc 3.8 mg/dL Normal 2.5 - 4.9 [facility] Comment on above: Result Comment: The performance characteristics of phosphorus testing in heparinized plasma have been validated by the individual laboratory site where testing is performed. Testing on heparinized plasma is not approved by the FDA; however, such approval is not necessary. Performed By: #### C BC ####[id number] [place] [address] Potassium molar conc 4.1 mmol/L Normal 3.5 - 5.3 [facility] Comment on above: Performed By: #### C BC ####[id number] [place] [address] Sodium molar conc 136 mmol/L Normal 136 - 145 [facility] Comment on above: Performed By: #### C BC ####[id number] [place] [address] Urea nitrogen mass conc 23 mg/dL Normal 6 - 23 [facility] Comment on above: Performed By: #### C BC ####[id number] [place] [address] CBCon 04-05-2018 Erythrocyte distribution width Auto Ratio (RBC) 12.7 % Normal 11.5 - 14.5 [facility] Comment on above: Performed By: #### C BC ####[id number], [place] Hematocrit Auto Volume Fraction (Bld) 29.5 % Low 41.0 - 52.0 [facility] Comment on above: Performed By: #### C BC ####[id number] [place] [address] Hemoglobin mass conc (Bld) 9.8 g/dL Low 13.5 - 17.5 [facility] Comment on above: Performed By: #### C BC ####[id number], [place] MCHC Auto mass conc (RBC) 33.2 g/dL Normal 32.0 - 36.0 [facility] Comment on above: Performed By: #### C BC ####[id number], [place] MCV Auto Entitic volume (RBC) 91 fL Normal 80 - 100 [facility] Comment on above: Performed By: #### C BC ####[id number], [place] Nucleated RBC/100 WBC Ratio (Bld) 0.0 /100 WBC Normal 0.0-0.0 [facility] Comment on above: Performed By: #### C BC ####[id number] [place] [address] Platelets Auto #/vol (Bld) 249 10*3/uL Normal 150 - 450 [facility] Comment on above: Performed By: #### C BC ####[id number] [place] [address] RBC Auto #/vol (Bld) 3.23 x10E12/L Low 4.50 - 5.90 [facility] Comment on above: Performed By: #### C BC ####[id number] [place] [address] WBC Auto #/vol (Bld) 10.2 10*3/uL Normal 4.4 - 11.3 [facility] Comment on above: Performed By: #### C BC ####[id number] [place] [address] COAGULATION SCREENon 04-05- 018 aPTT Coag time (Bld) 93 s High 28 - 38 [facility] Comment on above: Result Comment: Note new reference range as of 03/10/2018. THE APTT IS NO LONGER USED FOR MONITORING UNFRACTIONATED HEPARIN THERAPY. FOR MONITORING HEPARIN THERAPY, USE THE HEPARIN ASSAY. Performed By: #### C BC ####[id number] [place] [address] INR Coag RelTime (PPP) 1.4 {INR} High 0.9 - 1.1 [facility] Comment on above: Performed By: #### C BC ####[id number] [place] [address] Prothrombin time (PT) Coag time (PPP) 15.1 s High 9.7 - 12.7 [facility] Comment on above: Result Comment: Note new reference range as of 03/10/2018. Performed By: #### C BC ####[id number] [id number] Clinical Event Note-CUT epic ardial wireson 04-05-2018 Clinical Event Note-CUT epicardial wires Event:Topic: CUT epicardial wiresDetails:11:05 Atrial and ventricular wires cut at skin level. Patient instructed tonotify radiology of retained epicardial wires prior to any MRI procedure, andto notify Dr. Connors of any visible wires or s/s infection. Provider / Team Contact Information:Provider/Team Contact Info-Pager Number: cardiac surgery [phone] Electronic Signatures:Alexandra Milligan (PAC) (Signed 05-Apr-2018 11:17)Authored: Event, Provider / Team Contact Information Last Updated: 05-Apr-2018 11:17 by Alexandra Milligan (PAC) Normal [facility] Daily Progress Note-Cardiac Surgeryon 04-05-2018 [...] complaints overnight Objective Data: Objective Information: T CPNNDvR0Mdajr09.91453942/6996% Date/Time04/05 10: 10: 10: 10: 10:56Range(36.3C - 37.5C ) (63 - 75 ) (18 - 20 ) (109 - 131 )/ (64 - 75 ) (93%- 96% )Highest temp of 37.5 C was recorded at 04/04 22:38 Pain with Activity reported at 04/05 8:20: 0Pain at Rest reported at 04/05 8:20: 0 Bocnuzy70/18 2:00: Weight in kg (Weight (kg)) 109.8106/05 2:00: Weight in lbs ((lbs)) 242.1 ---- Intake and Output -----Mn/Dy/Year TimeIntakeOutputHighlands[facility] 2017 6:00 [id number] 2017 10:00 [id number] 2017 2:00 [id number] The Intake and Output Totals for the last 24 hours are:[id number] Physical Exam: Constitutional: lying in bed; NAD, [...] Water Injectable: 25 gram(s) IntraVenous Push Every 96Pyolklj5. Glucagon Injectable: 1 mg IntraMuscular Every 15 [...] a past medical history of HTN,HLD, T2DM, Bunn's disease, hypothyroidism, COPD, AKASH on CPAP, prostate Spring/p prostatectomy in 2011, and psoriasis who was transferred to [facility] on 03/18 for CABG eval. [place] to [place] with chest pressure and dyspnea. He as found to havebilat PEs, was started on Heparin gtt, and transferred to [facility]. He wasfound to have a troponin leak at 2.25. Cardiology was consulted and the patientwas diagnosed with ACS, NSTEMI. He underwent a TTE and cath. He had normal EF,mild AI, and triple vessel CAD so was transferred to [facility] for CABG eval.Pulm consulted for PE workup. Pt required unfractionated heparin infusion for7-10 days to take advantage of intrinsic fibrinolysis and clot stabilization,as well as an IVC filter.Endocrine consulted for evaluation of Bunn disease and treatment periop.Also managed DM. 03/23/2018 OPERATION/PROCEDURE: by Severiano KaskalyaniapInferior vena cava filter. 03/31/18 OPERATION/PROCEDURE: by Dr. Hernandez x 3; REIS to LAD, SVG to PDA, SVG to DiagEndoscopic harvest of right saphenous vein CTICU course: HTN, endo following for DM and Bunn's disease, insulin gtt;one CT with air leak [...] replaced K and Mg Endo - h/o Bunn's disease, DM, hypothyroidism- Appreciate endo recs, now have signed off as of 04/04- hydrocortisone taper ordered as per Endo recs for Bunn's- starting fludrocortisone 4 days per week on [...] next 2-3 days depending on INR- plan home health care coordinator and PT- continue to assess discharge needs Plan of care discussed with Dr. Gaston Signature/Cosignature/Attestat ion:Provider/Team Contact Info-Pager Numbercardiac surgery [phone] Electronic Signatures:Alexandra Milligan (PAC) (Signed 05-Apr-2018 15:48)Authored: Service, Subjective Data, Objective Data, Assessment and Plan,Signature/Cosignature/Att estation Last Updated: 05-Apr-2018 15:48 by Alexandra Milligan (PAC) Normal [facility] GLUCOSE-POCTon 04-05-2018 Glucose mass conc 289 mg/dL High 74 - 99 [facility] Comment on above: Performed By: #### C BC ####[id number] [place] [address] Glucose mass conc 222 mg/dL High 74 - 99 [facility] Comment on above: Performed By: #### C BC ####[id number] [place] [address] Glucose mass conc 193 mg/dL High 74 - 99 [facility] Comment on above: Performed By: #### C BC ####[id number] [place] [address] Glucose mass conc 129 mg/dL High 74 - 99 [facility] Comment on above: Performed By: #### C BC ####[id number] [place] [address] HEPARIN ASSAY,UFHon 04-05-20 18 HEPARIN ASSAY,UFH 0.7 IU/mL Normal [facility] Comment on above: Result Comment: The therapeutic reference range for UFH may be either 0.3-0.6 IU/mL or 0.3-0.7 IU/mL based on the clinical setting for anticoagulant therapy and the associated nomogram used. For heparin dosing guidelines based on clinical scenario and Heparin Assay results, please refer to local Pharmacy and the [facility] Guidelines for Anticoagulation therapy available on the [facility] intranet at:[email or web address]/[place]_Guidelines_for_Anticoagu.aspx Performed By: #### C BC ####[id number] [place] [address] MAGNESIUMon 04-05-2018 Magnesium mass conc 1.75 mg/dL Normal 1.60 - 2.40 [facility] Comment on above: Performed By: #### C BC ####[id number] [place] [address] RENAL FUNCTION PANELon 04-05 Albumin mass conc 3.3 g/dL Low 3.4 - 5.0 [facility] Comment on above: Performed By: #### C BC ####[id number] [place] [address] Anion gap 3 molar conc 14 mmol/L Normal 10 - 20 [facility] Comment on above: Performed By: #### C BC ####[id number] [place] [address] Calcium mass conc 8.5 mg/dL Low 8.6 - 10.6 [facility] Comment on above: Performed By: #### C BC ####[id number] [place] [address] Chloride molar conc 96 mmol/L Low 98 - 107 [facility] Comment on above: Performed By: #### C BC ####[id number] [place] [address] Creatinine mass conc 1.37 mg/dL High 0.50 - 1.30 [facility] Comment on above: Performed By: #### C BC ####[id number] [place] [address] GFR- AM. 63 mL/min/1.73m2 Normal >60 [facility] Comment on above: Result Comment: CALC ULATIONS OF ESTIMATED GFR ARE PERFORMED USING THE MDRD STUDY EQUATION FOR THE IDMS-TRACEABLE CREATININE METHODS. CLIN CHEM 2007;53:766-72 Performed By: #### C BC ####[id number] [place] [address] GFR-NON AM. 52 mL/min/1.73m2 Abnormal >60 [facility] Comment on above: Performed By: #### C BC ####[id number] [place] [address] Glucose mass conc 200 mg/dL High 74 - 99 [facility] Comment on above: Performed By: #### C BC ####[id number] [place] [address] HCO3 molar conc (Bld) 26 mmol/L Normal 21 - 32 [facility] Comment on above: Performed By: #### C BC ####[id number] [place] [address] Phosphate mass conc 2.9 mg/dL Normal 2.5 - 4.9 [facility] Comment on above: Result Comment: The performance characteristics of phosphorus testing in heparinized plasma have been validated by the individual laboratory site where testing is performed. Testing on heparinized plasma is not approved by the FDA; however, such approval is not necessary. Performed By: #### C BC ####[id number] [place] [address] Potassium molar conc 3.3 mmol/L Low 3.5 - 5.3 [facility] Comment on above: Performed By: #### C BC ####[id number] [place] [address] Sodium molar conc 133 mmol/L Low 136 - 145 [facility] Comment on above: Performed By: #### C BC ####[id number] [place] [address] Urea nitrogen mass conc 23 mg/dL Normal 6 - 23 [facility] Comment on above: Performed By: #### C BC ####[id number] [place] [address] CBCon 04-04-2018 Erythrocyte distribution width Auto Ratio (RBC) Canceled Normal [facility] Comment on above: Order Comment: TEST CBC WAS CANCELLED, 04/04/2018 18:30 ?Cancel Reason: Cancelled. Performed By: #### C BC ####[id number] [place] [address] Hematocrit Auto Volume Fraction (Bld) Canceled Normal [facility] Comment on above: Order Comment: TEST CBC WAS CANCELLED, 04/04/2018 18:30 ?Cancel Reason: Cancelled. Performed By: #### C BC ####[id number] [place] [address] Hemoglobin mass conc (Bld) Canceled Normal [facility] Comment on above: Order Comment: TEST CBC WAS CANCELLED, 04/04/2018 18:30 ?Cancel Reason: Cancelled. Performed By: #### C BC ####[id number] [place] [address] MCHC Auto mass conc (RBC) Canceled Normal [facility] Comment on above: Order Comment: TEST CBC WAS CANCELLED, 04/04/2018 18:30 ?Cancel Reason: Cancelled. Performed By: #### C BC ####[id number] [place] [address] MCV Auto Entitic volume (RBC) Canceled Normal [facility] Comment on above: Order Comment: TEST CBC WAS CANCELLED, 04/04/2018 18:30 ?Cancel Reason: Cancelled. Performed By: #### C BC ####[id number] [place] [address] Nucleated RBC/100 WBC Ratio (Bld) Canceled Normal [facility] Comment on above: Order Comment: TEST CBC WAS CANCELLED, 04/04/2018 18:30 ?Cancel Reason: Cancelled. Performed By: #### C BC ####[id number] [place] [address] Platelets Auto #/vol (Bld) Canceled Normal [facility] Comment on above: Order Comment: TEST CBC WAS CANCELLED, 04/04/2018 18:30 ?Cancel Reason: Cancelled. Performed By: #### C BC ####[id number] [place] [address] RBC Auto #/vol (Bld) Canceled Normal [facility] Comment on above: Order Comment: TEST CBC WAS CANCELLED, 04/04/2018 18:30 ?Cancel Reason: Cancelled. Performed By: #### C BC ####[id number] [place] [address] WBC Auto #/vol (Bld) Canceled Normal [facility] Comment on above: Order Comment: TEST CBC WAS CANCELLED, 04/04/2018 18:30 ?Cancel Reason: Cancelled. Performed By: #### C BC ####[id number] [place] [address] Erythrocyte distribution width Auto Ratio (RBC) Canceled Normal [facility] Comment on above: Order Comment: TEST CBC WAS CANCELLED, 04/04/2018 03:39 No specimen received. Performed By: #### C BC ####[id number] [place] [address] Hematocrit Auto Volume Fraction (Bld) Canceled Normal [facility] Comment on above: Order Comment: TEST CBC WAS CANCELLED, 04/04/2018 03:39 No specimen received. Performed By: #### C BC ####[id number] [place] [address] Hemoglobin mass conc (Bld) Canceled Normal [facility] Comment on above: Order Comment: TEST CBC WAS CANCELLED, 04/04/2018 03:39 No specimen received. Performed By: #### C BC ####[id number] [place] [address] MCHC Auto mass conc (RBC) Canceled Normal [facility] Comment on above: Order Comment: TEST CBC WAS CANCELLED, 04/04/2018 03:39 No specimen received. Performed By: #### C BC ####[id number] [place] [address] MCV Auto Entitic volume (RBC) Canceled Normal [facility] Comment on above: Order Comment: TEST CBC WAS CANCELLED, 04/04/2018 03:39 No specimen received. Performed By: #### C BC ####[id number] [place] [address] Nucleated RBC/100 WBC Ratio (Bld) Canceled Normal [facility] Comment on above: Order Comment: TEST CBC WAS CANCELLED, 04/04/2018 03:39 No specimen received. Performed By: #### C BC ####[id number] [place] [address] Platelets Auto #/vol (Bld) Canceled Normal [facility] Comment on above: Order Comment: TEST CBC WAS CANCELLED, 04/04/2018 03:39 No specimen received. Performed By: #### C BC ####[id number] [place] [address] RBC Auto #/vol (Bld) Canceled Normal [facility] Comment on above: Order Comment: TEST CBC WAS CANCELLED, 04/04/2018 03:39 No specimen received. Performed By: #### C BC ####[id number] [place] [address] WBC Auto #/vol (Bld) Canceled Normal [facility] Comment on above: Order Comment: TEST CBC WAS CANCELLED, 04/04/2018 03:39 No specimen received. Performed By: #### C BC ####[id number] [place] [address] Erythrocyte distribution width Auto Ratio (RBC) 12.4 % Normal 11.5 - 14.5 [facility] Comment on above: Performed By: #### E MRAD ####NO LOCATION NEEDED Hematocrit Auto Volume Fraction (Bld) 26.8 % Low 41.0 - 52.0 [facility] Comment on above: Performed By: #### E MRAD ####NO LOCATION NEEDED Hemoglobin mass conc (Bld) 9.0 g/dL Low 13.5 - 17.5 [facility] Comment on above: Performed By: #### E MRAD ####NO LOCATION NEEDED MCHC Auto mass conc (RBC) 33.6 g/dL Normal 32.0 - 36.0 [facility] Comment on above: Performed By: #### E MRAD ####NO LOCATION NEEDED MCV Auto Entitic volume (RBC) 93 fL Normal 80 - 100 [facility] Comment on above: Performed By: #### E MRAD ####NO LOCATION NEEDED Nucleated RBC/100 WBC Ratio (Bld) 0.0 /100 WBC Normal 0.0-0.0 [facility] Comment on above: Performed By: #### E MRAD ####NO LOCATION NEEDED Platelets Auto #/vol (Bld) 168 10*3/uL Normal 150 - 450 [facility] Comment on above: Performed By: #### E MRAD ####NO LOCATION NEEDED RBC Auto #/vol (Bld) 2.89 x10E12/L Low 4.50 - 5.90 [facility] Comment on above: Performed By: #### E MRAD ####NO LOCATION NEEDED WBC Auto #/vol (Bld) 9.9 10*3/uL Normal 4.4 - 11.3 [facility] Comment on above: Performed By: #### E MRAD ####NO LOCATION NEEDED CBC AND DIFFERENTIALon 04-04 % AUTOMATED IMMATURE GRAN 0.9 % Normal 0.0 - 0.9 [facility] Comment on above: Result Comment: Perc ent differential counts (%) should be interpreted in the context of the absolute cell counts (cells/L). Performed By: #### C BC ####[id number] [place] [address] % NEUTROPHIL 62.2 % Normal 40.0 - 80.0 [facility] Comment on above: Performed By: #### C BC ####[id number] [place] [address] Basophils/100 WBC Auto (Bld) 0.8 % Normal 0.0 - 2.0 [facility] Comment on above: Performed By: #### C BC ####[id number] [place] [address] Basophils/100 WBC Auto (Bld) 0.07 x10E9/L Normal 0.00 - 0.10 [facility] Comment on above: Performed By: #### C BC ####[id number] [place] [address] Eosinophils Auto #/vol (Bld) 0.56 10*3/uL Normal 0.00 - 0.70 [facility] Comment on above: Performed By: #### C BC ####[id number] [place] [address] Eosinophils/100 WBC Auto (Bld) 6.0 % Normal 0.0 - 6.0 [facility] Comment on above: Performed By: #### C BC ####[id number] [place] [address] Erythrocyte distribution width Auto Ratio (RBC) 12.6 % Normal 11.5 - 14.5 [facility] Comment on above: Performed By: #### C BC ####[id number] [place] [address] Hematocrit Auto Volume Fraction (Bld) 26.6 % Low 41.0 - 52.0 [facility] Comment on above: Performed By: #### C BC ####[id number] [place] [address] Hemoglobin mass conc (Bld) 9.0 g/dL Low 13.5 - 17.5 [facility] Comment on above: Performed By: #### C BC ####[id number] [place] [address] Lymphocytes Auto #/vol (Bld) 1.96 10*3/uL Normal 1.20 - 4.80 [facility] Comment on above: Performed By: #### C BC ####[id number] [place] [address] Lymphocytes/100 WBC Auto (Bld) 21.0 % Normal 13.0 - 44.0 [facility] Comment on above: Performed By: #### C BC ####[id number] [place] [address] MCHC Auto mass conc (RBC) 33.8 g/dL Normal 32.0 - 36.0 [facility] Comment on above: Performed By: #### C BC ####[id number] [place] [address] MCV Auto Entitic volume (RBC) 91 fL Normal 80 - 100 [facility] Comment on above: Performed By: #### C BC ####[id number] [place] [address] Monocytes Auto #/vol (Bld) 0.85 10*3/uL Normal 0.10 - 1.00 [facility] Comment on above: Performed By: #### C BC ####[id number] [place] [address] Monocytes/100 WBC Auto (Bld) 9.1 % Normal 2.0 - 10.0 [facility] Comment on above: Performed By: #### C BC ####[id number] [place] [address] Neutrophils Auto #/vol (Bld) 5.81 10*3/uL Normal 1.20 - 7.70 [facility] Comment on above: Performed By: #### C BC ####[id number] [place] [address] Nucleated RBC/100 WBC Ratio (Bld) 0.0 /100 WBC Normal 0.0-0.0 [facility] Comment on above: Performed By: #### C BC ####[id number] [place] [address] Platelets Auto #/vol (Bld) 173 10*3/uL Normal 150 - 450 [facility] Comment on above: Performed By: #### C BC ####[id number] [place] [address] RBC Auto #/vol (Bld) 2.93 x10E12/L Low 4.50 - 5.90 [facility] Comment on above: Performed By: #### C BC ####[id number] [place] [address] WBC Auto #/vol (Bld) 9.3 10*3/uL Normal 4.4 - 11.3 [facility] Comment on above: Performed By: #### C BC ####[id number] [place] [address] COAGULATION SCREENon 17-2 018 aPTT Coag time (Bld) 79 s High 28 - 38 [facility] Comment on above: Result Comment: Note new reference range as of 03/10/2018. THE APTT IS NO LONGER USED FOR MONITORING UNFRACTIONATED HEPARIN THERAPY. FOR MONITORING HEPARIN THERAPY, USE THE HEPARIN ASSAY. Performed By: #### C BC ####[id number] [place] [address] INR Coag RelTime (PPP) 1.4 {INR} High 0.9 - 1.1 [facility] Comment on above: Performed By: #### C BC ####[id number] [place] [address] Prothrombin time (PT) Coag time (PPP) 15.3 s High 9.7 - 12.7 [facility] Comment on above: Result Comment: Note new reference range as of 03/10/2018. Performed By: #### C BC ####[id number] [place] [address] Daily Progress Note-Cardiac Surgeryon 04-04-2018 Protein mass [...] complaints overnight Objective Data: Objective Information: T EEWSVmQ3Qkslw44.25639291/7595% Date/Time04/04 14: 14: 14: 14: 14:42Range(36C - 36.8C ) (67 - 75 ) (16 - 20 ) (117 - 128 )/ (69 - 76 ) (93% -97% ) As of 04-Apr-2018 04:41:00, patient is on 2 L/min of oxygen via nasal cannula. Pain with Activity reported at 04/04 8:15: 0Pain at Rest reported at 04/04 8:15: 0 Darzjnn77/17 4:41: Weight in kg (Weight (kg)) 109.9106/04 4:41: Weight in lbs ((lbs)) 242.5 ---- Intake and Output -----Mn/Dy/Year TimeIntakeOutputNetNov 2017 2:00 [id number] 2017 6:00 [id number] 2017 10:00 [id number] The Intake and Output Totals for the last 24 hours are:[id number] Physical Exam: Constitutional: lying in bed; NAD, [...] Water Injectable: 25 gram(s) IntraVenous Push Every 95Olvuiam4. Glucagon Injectable: 1 mg IntraMuscular Every 15 Minutes4. Ondansetron Injectable: 4 mg IntraVenous Push Every 6 Hours5. oxyCODONE Immediate Release: 5 mg Oral Every 4 Hours6. oxyCODONE Immediate Release: 10 mg Oral Every 4 Hours Recent Lab Results: Results: I have reviewed these laboratory results: Glucose_POCT Trending View Tmeghc98-Zam-1597 15:59:00 04-Apr-2018 12:39:00 04-Apr-2018 07:30:00Glucose-VJWE451 H 248 H 207 H Coagulation Screen [...] psoriasis [facility] for CABG eval. [place]. He as found to havebilat PEs, was started on Heparin gtt, and transferred to [facility]. He wasfound to have a troponin leak at 2.25. Cardiology was consulted and the patientwas diagnosed with ACS, NSTEMI. He underwent a TTE and cath. He had normal EF,mild AI, and triple vessel CAD so was transferred to [facility] for CABG eval.Pulm consulted for PE workup. Pt required unfractionated heparin infusion for7-10 days to take advantage of intrinsic fibrinolysis and clot stabilization,as well as an IVC filter.Endocrine consulted for evaluation of Bunn disease and treatment periop.Also managed DM. 03/23/2018 OPERATION/PROCEDURE: by Severiano RodriguezapInferior vena cava filter. 03/31/18 OPERATION/PROCEDURE: by Dr. 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, insulin gtt;one CT with air leak [...] 04/04 changed to 75 mg PO BID psnvgzxe05/18 Acute postop blood loss anemia- hct 26.6, [...] replaced K and Mg Endo - h/o Bunn's disease, DM, hypothyroidism- Appreciate endo recs, now [...] discharge early the week of 04/06- plan home health care coordinator and PT- continue to assess discharge needs Signature/Cosignature/Attestat ion:Provider/Team Contact Info-Pager Numbercardiac surgery [phone] Electronic Signatures:Alexandra Milligan (PAC) (Signed 04-Apr-2018 17:36)Authored: Service, Subjective Data, Objective Data, Assessment and Plan,Signature/Cosignature/Att estation Last Updated: 04-Apr-2018 17:36 by Alexandra Milligan (PAC) Normal [facility] Daily Progress Note-Endocrin ologyon 04-04-2018 [...] Objective Information: ---- Intake and Output -----Mn/Dy/Year TimeIntakeOutputHigh[facility] 2017 6:00 [id number] 2017 10:00 [id number] 2017 2:00 [id number] The Intake and Output Totals for the last 24 hours are:WyqbucUdjsgkDjz818532-991M LLICPpQ8Eyhrz47.27436506/7693% Date/Time04/04 7: 7: 7: 7: 7:24Range(36.1C - [...] reviewed these laboratory results: Glucose_POCT Trending View Guklfd37-Wso-4734 07:30:00 03-Apr-2018 22:08:00 03-Apr-2018 18:12:00 03-Apr-2018 11:22:00Glucose-TKGQ832 H 192 H 294 H 151 H Complete Blood Count + Differential 04-Apr-2018 02:57:00 ResultValueWhite Blood Cell Count 9.3Nucleated Erythrocyte Count 0.0Red Blood Cell Count 2.93 LHGB 9.0 LHCT 26.6 LMCV 91MCHC 33.8PLT 173RDW-CV 12.6Neutrophil % 62.2Immature Granulocytes % 0.9Lymphocyte % 21.0Monocyte % 9.1Eosinophil % 6.0Basophil % 0.8Neutrophil Count 5.81Lymphocyte Count 1.96Monocyte Count 0.85Eosinophil Count 0.56Basophil Count 0.07 Renal Function Panel Trending View Hvttzn41-Lsf-2728 02:57:00 03-Apr-2018 21:03:00Glucose, Eoosc756 H 198 CCP953 L 132 LK3.8 4.3CL97 L 97 LBicarbonate, Serum27 26Anion Gap, Serum13 20UXV91 H 27 HCREAT1.24 1.30GFR-Non Wmrrmuvm79 A 55 AGFR- Efvpccit98 67Calcium, Serum8.3 L 8.3 LPhosphorus, Serum2.9 2.7ALB3.2 [...] psoriasis who was transferredto [facility] from [facility] on 03/18 David marshall.Endocrine consulted fr evaluation of Brigida disease and treatment periop Patient was on supra-therapeutic dose of HCT 20-0-20 , fludrocortisone 0.1 ,mgdailyPatient has uncontrolled HTN and uncontrolled BSIVC filter placed on abg 03/31 1. Brigida's Disease- HC taper as below04/04- make HCt [...] weekly ( and Friday) on 04/06 2. V1GM-xmphnfsp Glargine 20 units QHS and Lispro 6 [...] patient (as noted in the above attestation) [id number] Electronic Signatures:Shanda Rose (Fellow)) (Signed 04-Apr-2018 13:07)Authored: Service, Subjective Data, Objective Data, Assessment and Plan,Signature/Cosignature/Att Leighton Kirkland) (Signed 06-Apr-2018 12:54)Authored: Signature/Cosignature/Attestat ionCo-Signer: Service, Subjective Data, Objective Data Last Updated: 19-Nov-2018 12:[address]) Normal [facility] GLUCOSE-POCTon 04-04-2018 Glucose mass conc 204 mg/dL High 74 - 99 [facility] Comment on above: Performed By: #### C BC ####[id number] [place] [address] Glucose mass conc 248 mg/dL High 74 - 99 [facility] Comment on above: Performed By: #### C BC ####[id number] [place] [address] Glucose mass conc 207 mg/dL High 74 - 99 [facility] Comment on above: Performed By: #### C BC ####[id number] [place] [address] Glucose mass conc 192 mg/dL High 74 - 99 [facility] Comment on above: Performed By: #### E MRAD ####NO LOCATION NEEDED HEPARIN ASSAY,UFHon 04-04-20 18 HEPARIN ASSAY,UFH 0.5 IU/mL Normal [facility] Comment on above: Result Comment: The therapeutic reference range for UFH may be either 0.3-0.6 IU/mL or 0.3-0.7 IU/mL based on the clinical setting for anticoagulant therapy and the associated nomogram used. For heparin dosing guidelines based on clinical scenario and Heparin Assay results, please refer to local Pharmacy and [facility] Guidelines for Anticoagulation therapy available on the [facility] intranet at:[email or web address]_Guidelines_[email or web address].aspx Performed By: #### C BC ####[id number] [place] [address] HEPARIN ASSAY,UFH 0.5 IU/mL Normal [facility] Comment on above: Result Comment: The therapeutic reference range for UFH may be either 0.3-0.6 IU/mL or 0.3-0.7 IU/mL based on the clinical setting for anticoagulant therapy and the associated nomogram used. For heparin dosing guidelines based on clinical scenario and Heparin Assay results, please refer to local Pharmacy and the [facility] Guidelines for Anticoagulation therapy available on the [facility] intranet at:[email or web address]_Guidelines_[email or web address].aspx Performed By: #### E MRAD ####NO LOCATION NEEDED MAGNESIUMon 04-04-2018 Magnesium mass conc 1.88 mg/dL Normal 1.60 - 2.40 [facility] Comment on above: Performed By: #### C BC ####[id number] [place] [address] RENAL FUNCTION PANELon 04-04 Albumin mass conc Canceled Normal [facility] Comment on above: Order Comment: TEST RENAL FUNCTION PANEL WAS CANCELLED, 04/04/2018 18:30 ?Cancel Reason:Cancelled. Performed By: #### C BC ####[id number] [place] [address] Anion gap 3 molar conc Canceled Normal [facility] Comment on above: Order Comment: TEST RENAL FUNCTION PANEL WAS CANCELLED, 04/04/2018 18:30 ?Cancel Reason:Cancelled. Performed By: #### C BC ####[id number] [place] [address] Calcium mass conc Canceled Normal [facility] Comment on above: Order Comment: TEST RENAL FUNCTION PANEL WAS CANCELLED, 04/04/2018 18:30 ?Cancel Reason:Cancelled. Performed By: #### C BC ####[id number] [place] [address] Chloride molar conc Canceled Normal [facility] Comment on above: Order Comment: TEST RENAL FUNCTION PANEL WAS CANCELLED, 04/04/2018 18:30 ?Cancel Reason:Cancelled. Performed By: #### C BC ####[id number] [place] [address] Creatinine mass conc Canceled Normal [facility] Comment on above: Order Comment: TEST RENAL FUNCTION PANEL WAS CANCELLED, 04/04/2018 18:30 ?Cancel Reason:Cancelled. Performed By: #### C BC ####[id number] [place] [address] GFR- AM. Canceled Normal [facility] Comment on above: Order Comment: TEST RENAL FUNCTION PANEL WAS CANCELLED, 04/04/2018 18:30 ?Cancel Reason:Cancelled. Result Comment: CALC ULATIONS OF ESTIMATED GFR ARE PERFORMED USING THE MDRD STUDY EQUATION FOR THE IDMS-TRACEABLE CREATININE METHODS. CLIN CHEM 2007;53:766-72 Performed By: #### C BC ####[id number] [place] [address] GFR-NON AM. Canceled Normal [facility] Comment on above: Order Comment: TEST RENAL FUNCTION PANEL WAS CANCELLED, 04/04/2018 18:30 ?Cancel Reason:Cancelled. Performed By: #### C BC ####[id number] [place] [address] Glucose mass conc Canceled Normal [facility] Comment on above: Order Comment: TEST RENAL FUNCTION PANEL WAS CANCELLED, 04/04/2018 18:30 ?Cancel Reason:Cancelled. Performed By: #### C BC ####[id number] [place] [address] HCO3 molar conc (Bld) Canceled Normal [facility] Comment on above: Order Comment: TEST RENAL FUNCTION PANEL WAS CANCELLED, 04/04/2018 18:30 ?Cancel Reason:Cancelled. Performed By: #### C BC ####[id number] [place] [address] Phosphate mass conc Canceled Normal [facility] Comment on above: Order Comment: TEST RENAL FUNCTION PANEL WAS CANCELLED, 04/04/2018 18:30 ?Cancel Reason:Cancelled. Result Comment: The performance characteristics of phosphorus testing in heparinized plasma have been validated by the individual laboratory site where testing is performed. Testing on heparinized plasma is not approved by the FDA; however, such approval is not necessary. Performed By: #### C BC ####[id number] [place] [address] Potassium molar conc Canceled Normal [facility] Comment on above: Order Comment: TEST RENAL FUNCTION PANEL WAS CANCELLED, 04/04/2018 18:30 ?Cancel Reason:Cancelled. Performed By: #### C BC ####[id number] [place] [address] Sodium molar conc Canceled Normal [facility] Comment on above: Order Comment: TEST RENAL FUNCTION PANEL WAS CANCELLED, 04/04/2018 18:30 ?Cancel Reason:Cancelled. Performed By: #### C BC ####[id number] [place] [address] Urea nitrogen mass conc Canceled Normal [facility] Comment on above: Order Comment: TEST RENAL FUNCTION PANEL WAS CANCELLED, 04/04/2018 18:30 ?Cancel Reason:Cancelled. Performed By: #### C BC ####[id number] [place] [address] Albumin mass conc 3.2 g/dL Low 3.4 - 5.0 [facility] Comment on above: Performed By: #### C BC ####[id number] [place] [address] Anion gap 3 molar conc 13 mmol/L Normal 10 - 20 [facility] Comment on above: Performed By: #### C BC ####[id number] [place] [address] Calcium mass conc 8.3 mg/dL Low 8.6 - 10.6 [facility] Comment on above: Performed By: #### C BC ####[id number] [place] [address] Chloride molar conc 97 mmol/L Low 98 - 107 [facility] Comment on above: Performed By: #### C BC ####[id number] [place] [address] Creatinine mass conc 1.24 mg/dL Normal 0.50 - 1.30 [facility] Comment on above: Performed By: #### C BC ####[id number] [place] [address] GFR- AM. 70 mL/min/1.73m2 Normal >60 [facility] Comment on above: Result Comment: CALC ULATIONS OF ESTIMATED GFR ARE PERFORMED USING THE MDRD STUDY EQUATION FOR THE IDMS-TRACEABLE CREATININE METHODS. CLIN CHEM 2007;53:766-72 Performed By: #### C BC ####[id number] [place] [address] GFR-NON AM. 58 mL/min/1.73m2 Abnormal >60 [facility] Comment on above: Performed By: #### C BC ####[id number] [place] [address] Glucose mass conc 131 mg/dL High 74 - 99 [facility] Comment on above: Performed By: #### C BC ####[id number] [place] [address] HCO3 molar conc (Bld) 27 mmol/L Normal 21 - 32 [facility] Comment on above: Performed By: #### C BC ####[id number] [place] [address] Phosphate mass conc 2.9 mg/dL Normal 2.5 - 4.9 [facility] Comment on above: Result Comment: The performance characteristics of phosphorus testing in heparinized plasma have been validated by the individual laboratory site where testing is performed. Testing on heparinized plasma is not approved by the FDA; however, such approval is not necessary. Performed By: #### C BC ####[id number] [place] [address] Potassium molar conc 3.8 mmol/L Normal 3.5 - 5.3 [facility] Comment on above: Performed By: #### C BC ####[id number] [place] [address] Sodium molar conc 133 mmol/L Low 136 - 145 [facility] Comment on above: Performed By: #### C BC ####[id number] [place] [address] Urea nitrogen mass conc 26 mg/dL High 6 - 23 [facility] Comment on above: Performed By: #### C BC ####[id number] [place] [address] Albumin mass conc 3.2 g/dL Low 3.4 - 5.0 [facility] Comment on above: Performed By: #### E MRAD ####NO LOCATION NEEDED Anion gap 3 molar conc 13 mmol/L Normal 10 - 20 [facility] Comment on above: Performed By: #### E MRAD ####NO LOCATION NEEDED Calcium mass conc 8.3 mg/dL Low 8.6 - 10.6 [facility] Comment on above: Performed By: #### E MRAD ####NO LOCATION NEEDED Chloride molar conc 97 mmol/L Low 98 - 107 [facility] Comment on above: Performed By: #### E MRAD ####NO LOCATION NEEDED Creatinine mass conc 1.30 mg/dL Normal 0.50 - 1.30 [facility] Comment on above: Performed By: #### E MRAD ####NO LOCATION NEEDED GFR- AM. 67 mL/min/1.73m2 Normal >60 [facility] Comment on above: Result Comment: CALC ULATIONS OF ESTIMATED GFR ARE PERFORMED USING THE MDRD STUDY EQUATION FOR THE IDMS-TRACEABLE CREATININE METHODS. CLIN CHEM 2007;53:766-72 Performed By: #### E MRAD ####NO LOCATION NEEDED GFR-NON AM. 55 mL/min/1.73m2 Abnormal >60 [facility] Comment on above: Performed By: #### E MRAD ####NO LOCATION NEEDED Glucose mass conc 198 mg/dL High 74 - 99 [facility] Comment on above: Performed By: #### E MRAD ####NO LOCATION NEEDED HCO3 molar conc (Bld) 26 mmol/L Normal 21 - 32 [facility] Comment on above: Performed By: #### E MRAD ####NO LOCATION NEEDED Phosphate mass conc 2.7 mg/dL Normal 2.5 - 4.9 [facility] Comment on above: Result Comment: The performance characteristics of phosphorus testing in heparinized plasma have been validated by the individual laboratory site where testing is performed. Testing on heparinized plasma is not approved by the FDA; however, such approval is not necessary. Performed By: #### E MRAD ####NO LOCATION NEEDED Potassium molar conc 4.3 mmol/L Normal 3.5 - 5.3 [facility] Comment on above: Performed By: #### E MRAD ####NO LOCATION NEEDED Sodium molar conc 132 mmol/L Low 136 - 145 [facility] Comment on above: Performed By: #### E MRAD ####NO LOCATION NEEDED Urea nitrogen mass conc 27 mg/dL High 6 - 23 [facility] Comment on above: Performed By: [...] Electronically signed by: STANISLAV RADFORD MD Normal [facility] CBCon 04-03-2018 Erythrocyte distribution width Auto Ratio (RBC) 13.0 % Normal 11.5 - 14.5 [facility] Comment on above: Performed By: #### E MRAD ####NO LOCATION NEEDED Hematocrit Auto Volume Fraction (Bld) 28.5 % Low 41.0 - 52.0 [facility] Comment on above: Performed By: #### E MRAD ####NO LOCATION NEEDED Hemoglobin mass conc (Bld) 9.6 g/dL Low 13.5 - 17.5 [facility] Comment on above: Performed By: #### E MRAD ####NO LOCATION NEEDED MCHC Auto mass conc (RBC) 33.7 g/dL Normal 32.0 - 36.0 [facility] Comment on above: Performed By: #### E MRAD ####NO LOCATION NEEDED MCV Auto Entitic volume (RBC) 93 fL Normal 80 - 100 [facility] Comment on above: Performed By: #### E MRAD ####NO LOCATION NEEDED Nucleated RBC/100 WBC Ratio (Bld) 0.0 /100 WBC Normal 0.0-0.0 [facility] Comment on above: Performed By: #### E MRAD ####NO LOCATION NEEDED Platelets Auto #/vol (Bld) 130 10*3/uL Low 150 - 450 [facility] Comment on above: Performed By: #### E MRAD ####NO LOCATION NEEDED RBC Auto #/vol (Bld) 3.08 x10E12/L Low 4.50 - 5.90 [facility] Comment on above: Performed By: #### E MRAD ####NO LOCATION NEEDED WBC Auto #/vol (Bld) 10.9 10*3/uL Normal 4.4 - 11.3 [facility] Comment on above: Performed By: #### E MRAD ####NO LOCATION NEEDED CBC AND DIFFERENTIALon 04-03 % AUTOMATED IMMATURE GRAN 0.6 % Normal 0.0 - 0.9 [facility] Comment on above: Result Comment: Perc ent differential counts (%) should be interpreted in the context of the absolute cell counts (cells/L). Performed By: #### E MRAD ####NO LOCATION NEEDED % NEUTROPHIL 60.9 % Normal 40.0 - 80.0 [facility] Comment on above: Performed By: #### E MRAD ####NO LOCATION NEEDED Basophils/100 WBC Auto (Bld) 0.07 x10E9/L Normal 0.00 - 0.10 [facility] Comment on above: Performed By: #### E MRAD ####NO LOCATION NEEDED Basophils/100 WBC Auto (Bld) 0.7 % Normal 0.0 - 2.0 [facility] Comment on above: Performed By: #### E MRAD ####NO LOCATION NEEDED Eosinophils Auto #/vol (Bld) 0.67 10*3/uL Normal 0.00 - 0.70 [facility] Comment on above: Performed By: #### E MRAD ####NO LOCATION NEEDED Eosinophils/100 WBC Auto (Bld) 7.1 % Normal 0.0 - 6.0 [facility] Comment on above: Performed By: #### E MRAD ####NO LOCATION NEEDED Erythrocyte distribution width Auto Ratio (RBC) 12.8 % Normal 11.5 - 14.5 [facility] Comment on above: Performed By: #### E MRAD ####NO LOCATION NEEDED Hematocrit Auto Volume Fraction (Bld) 28.5 % Low 41.0 - 52.0 [facility] Comment on above: Performed By: #### E MRAD ####NO LOCATION NEEDED Hemoglobin mass conc (Bld) 9.6 g/dL Low 13.5 - 17.5 [facility] Comment on above: Performed By: #### E MRAD ####NO LOCATION NEEDED Lymphocytes Auto #/vol (Bld) 1.99 10*3/uL Normal 1.20 - 4.80 [facility] Comment on above: Performed By: #### E MRAD ####NO LOCATION NEEDED Lymphocytes/100 WBC Auto (Bld) 21.0 % Normal 13.0 - 44.0 [facility] Comment on above: Performed By: #### E MRAD ####NO LOCATION NEEDED MCHC Auto mass conc (RBC) 33.7 g/dL Normal 32.0 - 36.0 [facility] Comment on above: Performed By: #### E MRAD ####NO LOCATION NEEDED MCV Auto Entitic volume (RBC) 92 fL Normal 80 - 100 [facility] Comment on above: Performed By: #### E MRAD ####NO LOCATION NEEDED Monocytes Auto #/vol (Bld) 0.92 10*3/uL Normal 0.10 - 1.00 [facility] Comment on above: Performed By: #### E MRAD ####NO LOCATION NEEDED Monocytes/100 WBC Auto (Bld) 9.7 % Normal 2.0 - 10.0 [facility] Comment on above: Performed By: #### E MRAD ####NO LOCATION NEEDED Neutrophils Auto #/vol (Bld) 5.76 10*3/uL Normal 1.20 - 7.70 [facility] Comment on above: Performed By: #### E MRAD ####NO LOCATION NEEDED Nucleated RBC/100 WBC Ratio (Bld) 0.0 /100 WBC Normal 0.0-0.0 [facility] Comment on above: Performed By: #### E MRAD ####NO LOCATION NEEDED Platelets Auto #/vol (Bld) 144 10*3/uL Low 150 - 450 [facility] Comment on above: Performed By: #### E MRAD ####NO LOCATION NEEDED RBC Auto #/vol (Bld) 3.09 x10E12/L Low 4.50 - 5.90 [facility] Comment on above: Performed By: #### E MRAD ####NO LOCATION NEEDED WBC Auto #/vol (Bld) 9.5 10*3/uL Normal 4.4 - 11.3 [facility] Comment on above: Performed By: [...] Contact Information:Provider/Team Contact Info-Pager Number: cardiac surgery [phone] Electronic Signatures:Mary Munroe (INSTRUCTOR GROUND SERVICES-PAPER SLITTER) (Signed 03-Apr-2018 16:04)Authored: Event, Provider / Team Contact Information Last Updated: 03-Apr-2018 16:04 by Mary Munroe (INSTRUCTOR [employer]OUND SERVICES-PAPER SLITTER) Normal [facility] Daily Progress Note-Cardiac Surgeryon 04-03-2018 [...] Intake and Output -----Mn/Dy/Year TimeIntakeOutputNetNov 2017 6:00 [id number] 2017 10:00 [id number] 2017 2:00 [id number] The Intake and Output Totals for the last 24 hours are:[id number] Intake Output Enteral - Oral 820 mL Urine 1180 mL IV Fluids 55 mL Chest Tubes 170 mL T SCQOCmD7Nhwgc12.87369280/6892% Date/Time04/03 6: 6: 6: 6: 6:52Range(36C - 37.2C ) (69 - 86 ) (16 - 20 ) (108 - 134 )/ (66 - 75 ) (91% -95% ) As of 03-Apr-2018 04:00:00, patient is on 2% oxygen via nasal cannula.Highest temp of 37.2 C was recorded at 04/03 6:52 Kmdomgg79/16 6:00: Weight in kg (Weight (kg)) 109.8106/03 [...] Water Injectable: 25 gram(s) IntraVenous Push Every 03Whndyvk9. Glucagon Injectable: 1 mg IntraMuscular Every 15 [...] 06:57:00 ResultValueMagnesium, Serum 1.94 Glucose_POCT Trending View [id number] 21:05:00 02-Apr-2018 17:14:00 02-Apr-2018 11:05:00 02-Apr-2018 07:21:00 02-Apr-2018 03:09:00Glucose-INTI753 H 137 H 310 H 223 H [...] a past medical history of HTN,HLD, T2DM, Bunn's disease, hypothyroidism, COPD, AKASH on CPAP, prostate Spring/p prostatectomy in 2011, and psoriasis [facility] on [facility]18 for CABG eval. [place] and dys[place]. He as found to havebilat PEs, was started on Heparin gtt, and transferred to [facility]. He wasfound to have a troponin leak at 2.25. Cardiology was consulted and the patientwas diagnosed with ACS, NSTEMI. He underwent a TTE and cath. He had normal EF,mild AI, and triple vessel CAD so was transferred to [facility] for CABG eval.Pulm consulted for PE workup. 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, insulin gtt;one CT with air leak [...] - 04/03 replaced [facility] Endo - h/o Bunn's disease, DM, hypothyroidism- Endo is following, appreciate- hydrocortisone taper ordered as per Endo recs for Bunn's- starting fludrocortisone 4 days per week on [...] discharge early the week of 04/06- plan home health care coordinator and PT- continue to assess discharge needs Signature/Cosignature/Attestat ion:Provider/Team Contact Info-Pager Numbercardiac surgery [phone] Electronic Signatures:Mary Munroe (INSTRUCTOR [employer]OUND [employer]-PAPER SLITTER) (Signed 03-Apr-2018 21:30)Authored: Service, Subjective Data, Objective Data, Assessment and Plan,Signature/Cosignature/Att estation Last Updated: 03-Apr-2018 21:30 by Mary Munroe (INSTRUCTOR [employer]OUND [employer]-PAPER SLITTER) Normal [facility] Daily Progress Note-Endocrin ologyon 04-03-2018 Protein mass conc Consult Type: subseq uent visit/care Service: Endocrinology Subjective Data:DON ELKINS is a 67 year old Male who is Hospital Day # 17 and POD #3 for CABGx 3;-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 Objective Data: Objective Information: ---- Intake and Output -----Mn/Dy/Year TimeIntakeOutputNetNov 2017 2:00 [id number] 2017 6:00 [id number] 2017 10:00 [id number] The Intake and Output Totals for the last 24 hours are:[id number] T GGZJSzB0Junuw95.19332286/5194% Date/Time04/03 14: 14: 14: 14: 14:40Range(36.2C - [...] Water Injectable: 25 gram(s) IntraVenous Push Every 94Gccghxh6. Glucagon Injectable: 1 mg IntraMuscular Every 15 Minutes4. Ondansetron Injectable: 4 mg IntraVenous Push Every 6 Hours5. oxyCODONE Immediate Release: 5 mg Oral Every 4 Hours6. oxyCODONE Immediate Release: 10 mg Oral Every 4 Hours Currently Suspended Medications -- 1. Lisinopril: 20 mg Oral Every Night Recent Lab Results: Results: I have reviewed these laboratory results: Glucose_POCT Trending View [id number] 11:22:00 02-Apr-2018 21:05:00 02-Apr-2018 17:14:00 02-Apr-2018 11:05:00 02-Apr-2018 07:21:00Glucose-YRJM218 H 200 H 137 H 310 H [...] a past medicalhistory of HTN, HLD, T2DM, Bunn's disease, hypothyroidism, COPD, AKASH onCPAP, prostate ca s/p prostatectomy in 2011, and psoriasis who was [facility]to [facility] from [facility] on 03/18 forCABG eval.Endocrine consulted fr evaluation of Bunn disease and treatment periop Patient was on supra-therapeutic dose of HCT 20-0-20 , fludrocortisone 0.1 ,mgdailyPatient has uncontrolled HTN and uncontrolled BSIVC filter placed on abg 03/31 1. Bunn's Disease- HC taper as belowon 04/03 please [...] times weekly ( and Friday) on04/06 2. T8QS--jsskhsuw Glargine today as : 20 units QHS and Lispro 6 TIDAC-ISS correction to 2 units per 50 >150--Will follow Please page with questions [phone] Patient seen and examined, plan discussed with Dr Geller Electronic Signatures:Bryon Sandoval (Fellow)) (Signed 03-Apr-2018 14:47)Authored: Service, Subjective Data, Objective Data, Assessment and Plan,Signature/Cosignature/Att Rose Mary Cunningham) (Signed 03-Apr-2018 18:05)Authored: Signature/Cosignature/Attestat ionCo-Signer: Service, Subjective Data, Objective Data, Assessment and Plan,Signature/Cosignature/Att estation Last Updated: 03-Apr-2018 18:05 by Rose Mary Burrell) Normal [facility] GLUCOSE-POCTon 04-03-2018 Glucose mass conc 294 mg/dL High 74 - 99 [facility] Comment on above: Performed By: #### E MRAD ####NO LOCATION NEEDED Glucose mass conc 151 mg/dL High 74 - 99 [facility] Comment on above: Performed By: #### E MRAD ####NO LOCATION NEEDED MAGNESIUMon 04-03-2018 Magnesium mass conc 1.94 mg/dL Normal 1.60 - 2.40 [facility] Comment on above: Performed By: #### E MRAD ####NO LOCATION NEEDED PT/INRon 04-03-2018 INR Coag RelTime (PPP) 1.2 {INR} High 0.9 - 1.1 [facility] Comment on above: Performed By: #### E MRAD ####NO LOCATION NEEDED Prothrombin time (PT) Coag time (PPP) 13.7 s High 9.7 - 12.7 [facility] Comment on above: Result Comment: Note new reference range as of 03/10/2018. Performed By: #### E MRAD ####NO LOCATION NEEDED RENAL FUNCTION PANELon 04-03 Albumin mass conc 3.4 g/dL Normal 3.4 - 5.0 [facility] Comment on above: Performed By: #### E MRAD ####NO LOCATION NEEDED Anion gap 3 molar conc 14 mmol/L Normal 10 - 20 [facility] Comment on above: Performed By: #### E MRAD ####NO LOCATION NEEDED Calcium mass conc 8.5 mg/dL Low 8.6 - 10.6 [facility] Comment on above: Performed By: #### E MRAD ####NO LOCATION NEEDED Chloride molar conc 95 mmol/L Low 98 - 107 [facility] Comment on above: Performed By: #### E MRAD ####NO LOCATION NEEDED Creatinine mass conc 1.32 mg/dL High 0.50 - 1.30 [facility] Comment on above: Performed By: #### E MRAD ####NO LOCATION NEEDED GFR- AM. 65 mL/min/1.73m2 Normal >60 [facility] Comment on above: Result Comment: CALC ULATIONS OF ESTIMATED GFR ARE PERFORMED USING THE MDRD STUDY EQUATION FOR THE IDMS-TRACEABLE CREATININE METHODS. CLIN CHEM 2007;53:766-72 Performed By: #### E MRAD ####NO LOCATION NEEDED GFR-NON AM. 54 mL/min/1.73m2 Abnormal >60 [facility] Comment on above: Performed By: #### E MRAD ####NO LOCATION NEEDED Glucose mass conc 125 mg/dL High 74 - 99 [facility] Comment on above: Performed By: #### E MRAD ####NO LOCATION NEEDED HCO3 molar conc (Bld) 28 mmol/L Normal 21 - 32 [facility] Comment on above: Performed By: #### E MRAD ####NO LOCATION NEEDED Phosphate mass conc 3.1 mg/dL Normal 2.5 - 4.9 [facility] Comment on above: Result Comment: The performance characteristics of phosphorus testing in heparinized plasma have been validated by the individual laboratory site where testing is performed. Testing on heparinized plasma is not approved by the FDA; however, such approval is not necessary. Performed By: #### E MRAD ####NO LOCATION NEEDED Potassium molar conc 3.9 mmol/L Normal 3.5 - 5.3 [facility] Comment on above: Performed By: #### E MRAD ####NO LOCATION NEEDED Sodium molar conc 133 mmol/L Low 136 - 145 [facility] Comment on above: Performed By: #### E MRAD ####NO LOCATION NEEDED Urea nitrogen mass conc 25 mg/dL High 6 - 23 [facility] Comment on above: Performed By: #### E MRAD ####NO LOCATION NEEDED Albumin mass conc 3.5 g/dL Normal 3.4 - 5.0 [facility] Comment on above: Performed By: #### E MRAD ####NO LOCATION NEEDED Anion gap 3 molar conc 13 mmol/L Normal 10 - 20 [facility] Comment on above: Performed By: #### E MRAD ####NO LOCATION NEEDED Calcium mass conc 8.6 mg/dL Normal 8.6 - 10.6 [facility] Comment on above: Performed By: #### E MRAD ####NO LOCATION NEEDED Chloride molar conc 94 mmol/L Low 98 - 107 [facility] Comment on above: Performed By: #### E MRAD ####NO LOCATION NEEDED Creatinine mass conc 1.37 mg/dL High 0.50 - 1.30 [facility] Comment on above: Performed By: #### E MRAD ####NO LOCATION NEEDED GFR- AM. 63 mL/min/1.73m2 Normal >60 [facility] Comment on above: Result Comment: CALC ULATIONS OF ESTIMATED GFR ARE PERFORMED USING THE MDRD STUDY EQUATION FOR THE IDMS-TRACEABLE CREATININE METHODS. CLIN CHEM 2007;53:766-72 Performed By: #### E MRAD ####NO LOCATION NEEDED GFR-NON AM. 52 mL/min/1.73m2 Abnormal >60 [facility] Comment on above: Performed By: #### E MRAD ####NO LOCATION NEEDED Glucose mass conc 163 mg/dL High 74 - 99 [facility] Comment on above: Performed By: #### E MRAD ####NO LOCATION NEEDED HCO3 molar conc (Bld) 28 mmol/L Normal 21 - 32 [facility] Comment on above: Performed By: #### E MRAD ####NO LOCATION NEEDED Phosphate mass conc 3.0 mg/dL Normal 2.5 - 4.9 [facility] Comment on above: Result Comment: The performance characteristics of phosphorus testing in heparinized plasma have been validated by the individual laboratory site where testing is performed. Testing on heparinized plasma is not approved by the FDA; however, such approval is not necessary. Performed By: #### E MRAD ####NO LOCATION NEEDED Potassium molar conc 4.2 mmol/L Normal 3.5 - 5.3 [facility] Comment on above: Performed By: #### E MRAD ####NO LOCATION NEEDED Sodium molar conc 131 mmol/L Low 136 - 145 [facility] Comment on above: Performed By: #### E MRAD ####NO LOCATION NEEDED Urea nitrogen mass conc 24 mg/dL High 6 - 23 [facility] Comment on above: Performed By: #### E MRAD ####NO LOCATION NEEDED TH CHEST 1 VIEWon 04-03-2018 TH CHEST 1 VIEW Name: DON ELKINS STUDY:TH CHEST 1 VIEW; 04/03/2018 4:50 [...] findingsas stated. This study was interpreted at [facility], [place], [place].Electronically signed by: STANISLAV RADFORD MD Normal [facility] TH CHEST 1 VIEW Name: [...] findingsas stated. This study was interpreted at [place], [place].Electronically signed by: STANISLAV RADFORD MD Normal [facility] ARTERIAL FULL PANELon 2017 Anion gap 3 molar conc 6 mmol/L Low 10 - 25 [facility] Comment on above: Performed By: #### E MRAD ####NO LOCATION NEEDED BASE EXCESS-BLOOD 4.1 mmol/L High -2.0 - 3.0 [facility] Comment on above: Performed By: #### E MRAD ####NO LOCATION NEEDED CALCIUM,IONIZED 1.13 mmol/L Normal 1.10 - 1.33 [facility] Comment on above: Performed By: #### E MRAD ####NO LOCATION NEEDED Chloride molar conc 100 mmol/L Normal 98 - 107 [facility] [facility] Comment on above: Performed By: #### E MRAD ####NO LOCATION NEEDED Glucose mass conc 182 mg/dL High 74 - 99 [facility] Comment on above: Performed By: #### E MRAD ####NO LOCATION NEEDED Hematocrit Auto Volume Fraction (Bld) 24.0 % Low 41.0 - 52.0 [facility] Comment on above: Performed By: #### E MRAD ####NO LOCATION NEEDED HGB,CALCULATED 8.2 g/dL Low 13.5 - 17.5 [facility] Comment on above: Performed By: #### E MRAD ####NO LOCATION NEEDED Lactate molar conc 1.5 mmol/L Normal 0.4 - 2.0 [facility] Comment on above: Performed By: #### E MRAD ####NO LOCATION NEEDED Oxygen ppres (BldA) 93 mm[Hg] Normal 85 - 95 [facility] Comment on above: Performed By: #### E MRAD ####NO LOCATION NEEDED PCO2 46 mmHg High 38 - 42 [facility] Comment on above: Performed By: #### E MRAD ####NO LOCATION NEEDED pH (Bld) 7.41 [pH] Normal 7.38 - 7.42 [facility] Comment on above: Performed By: #### E MRAD ####NO LOCATION NEEDED Potassium molar conc 4.1 mmol/L Normal 3.5 - 5.3 [facility] Comment on above: Performed By: #### E MRAD ####NO LOCATION NEEDED RBC Auto #/vol (Bld) 29.2 mmol/L High 22.0 - 26.0 [facility] Comment on above: Performed By: #### E MRAD ####NO LOCATION NEEDED SO2 99 % Normal 94 - 100 [facility] Comment on above: Performed By: #### E MRAD ####NO LOCATION NEEDED Sodium molar conc 131 mmol/L Low 136 - 145 [facility] Comment on above: Performed By: #### E MRAD ####NO LOCATION NEEDED CALCIUM, IONIZEDon 8 CALCIUM,IONIZED 1.11 mmol/L Normal 1.10 - 1.33 [facility] Comment on above: Result Comment: [...] (RBC) 13.3 % Normal 11.5 - 14.5 [facility] Comment on above: Performed By: #### E MRAD ####NO LOCATION NEEDED Hematocrit Auto Volume Fraction (Bld) 29.1 % Low 41.0 - 52.0 [facility] Comment on above: Performed By: #### E MRAD ####NO LOCATION NEEDED Hemoglobin mass conc (Bld) 9.5 g/dL Low 13.5 - 17.5 [facility] Comment on above: Performed By: #### E MRAD ####NO LOCATION NEEDED MCHC Auto mass conc (RBC) 32.6 g/dL Normal 32.0 - 36.0 [facility] Comment on above: Performed By: #### E MRAD ####NO LOCATION NEEDED MCV Auto Entitic volume (RBC) 94 fL Normal 80 - 100 [facility] Comment on above: Performed By: #### E MRAD ####NO LOCATION NEEDED Nucleated RBC/100 WBC Ratio (Bld) 0.0 /100 WBC Normal 0.0-0.0 [facility] Comment on above: Performed By: #### E MRAD ####NO LOCATION NEEDED Platelets Auto #/vol (Bld) 122 10*3/uL Low 150 - 450 [facility] Comment on above: Performed By: #### E MRAD ####NO LOCATION NEEDED RBC Auto #/vol (Bld) 3.08 x10E12/L Low 4.50 - 5.90 [facility] Comment on above: Performed By: #### E MRAD ####NO LOCATION NEEDED WBC Auto #/vol (Bld) 10.1 10*3/uL Normal 4.4 - 11.3 [facility] Comment on above: Performed By: #### E MRAD ####NO LOCATION NEEDED COAGULATION SCREENon 018 aPTT Coag time (Bld) 28 s Normal 28 - 38 [facility] Comment on above: Result Comment: Note new reference range as of 03/10/2018. THE APTT IS NO LONGER USED FOR MONITORING UNFRACTIONATED HEPARIN THERAPY. FOR MONITORING HEPARIN THERAPY, USE THE HEPARIN ASSAY. Performed By: #### E MRAD ####NO LOCATION NEEDED INR Coag RelTime (PPP) 1.4 {INR} High 0.9 - 1.1 [facility] Comment on above: Performed By: #### E MRAD ####NO LOCATION NEEDED Prothrombin time (PT) Coag time (PPP) 15.2 s High 9.7 - 12.7 [facility] Comment on above: Result Comment: Note new reference range as of 03/10/2018. Performed By: #### E MRAD ####NO LOCATION NEEDED CORTISOL, P.M.on 04-02-2018 CORTISOL, P.M. 13.8 ug/dL High 2.5 - 10.0 [facility] Comment on above: Performed By: [...] around the unit. Objective Data: Objective InformationT [id number]%Date/T 8: 7: 7: 7:00Range(36.3C - 37.2C ) [...] (L/min/m2)2.4(2.4 - 3.9)04/01 10:00 Direct Arterial Blood GbyujoqlEwpdkpef527(120 - 159)04/02 7:00Diastolic (mm Hg)51(51 - 77)04/02 7:00Mean (mm Hg)73(72 - 101)04/02 7:00Pulse Pressure (mm Hg)71(66 - 94)04/02 7:59Ohlpxwme883(120 - 159)04/02 7:00Diastolic (mm Hg)51(51 - 77)04/02 7:00Mean (mm Hg)73(72 - 101)04/02 7:00Pulse Pressure (mm Hg)71(66 - 94)04/02 7:00 JOTFgwoihbn84(28 - 39)04/01 11:00Diastolic (mm Hg)22(10 - 22)04/01 11:00Mean (mm Hg)9(9 - 28)04/01 11:00 ---- Intake and Output -----Mn/Dy/Year TimeIntakeOutputNetNov 2017 6:00 [id number] 2017 10:00 [id number] 2017 2:00 [id number] The Intake and Output Totals for the last 24 hours are:[id number] Drain and tube details (included in I&O [...] \ Recent Arterial Blood Gas Results 04/02/2018 02:96kG659 24 h range: ( 73 - 93 )pH7.41 24 h range: ( 7.41 - 7.43 )vVB477 24 h range: ( 38 - 46 )SO299 24 h range: ( 96 - 99 )Base Excess4.1 24 h range: ( 0.9 - 4.1 )Zuwrmsnydsv98.2 24 h range: ( 25.2 - 29.2 ) Assessment and Plan:Daily Risk Screen: Does patient have a central lineno Does patient have an indwelling urinary catheteryes Plan for indwelling urinary catheter removal todayyes Is the patient intubatedno Other:Assessment: Assessment:67 year old with a history of CAD, HTN, HLD, DM2, Gerd, Bunn's, andhypothyroid presents from the OR s/p CABG [...] per SICU protocol ENDO: History of diabetes, Bunn's and hypothyroid. HbA1c: 7.9. Endocrinefollowing patient. Patient on insulin drip 03/31, transitioned to sliding scalemorning 04/01. Currently on lantus and lispro per endocrine recommendations -->- Consulted Endocrine for management of Bunn's and diabetes- Continue hydrocortisone- Maintain BG <180, [...] Filiberto Richey - dc Dispo: Continue SICU care.#[id number] Code Status: Code StatusFull Code SCIP:Urinary Catheter Removed Post-Op Day 2: noReason Patient Needs Her: Strict I&0Patient on Beta Danica Prior to Admission: noProphylactic antibiotics scheduled to be discontinued with 24 hr of anesthesiaend time (48 hr for cardiac surgery): yesType of VTE Prophylaxis Ordered: Subcutaneous heparin and SCDs Signature/Cosignature/Attestat ion:Comments/ Additional Ebdqbhtk49j/o male s/p CABG x3 with Dr Gaston. [...] Updated: 02-Apr-2018 14:54 by Abelino Klein) Normal [facility] Daily Progress Note-Endocrin ologyon 04-02-2018 Protein mass conc Consult Type: subseq uent visit/care Service: Endocrinology Subjective Data:DON ELKINS is a 67 year old Male who is Hospital Day # 16 and POD #2 for CABGx 3;-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 Objective Data: Objective Information: ---- Intake and Output -----Mn/Dy/Year TimeIntakeOutputNetNov 2017 2:00 [id number] 2017 6:00 [id number] 2017 10:00 [id number] The Intake and Output Totals for the last 24 hours are:[id number] Physical Exam: Constitutional: Well developed, awake/alert/oriented x3, [...] Water Injectable: 25 gram(s) IntraVenous Push Every 29Athzlfk0. Glucagon Injectable: 1 mg IntraMuscular Every 15 Minutes4. Ondansetron Injectable: 4 mg IntraVenous Push Every 6 Hours5. oxyCODONE Immediate Release: 5 mg Oral Every 4 Hours6. oxyCODONE Immediate Release: 10 mg Oral Every 4 Hours Currently Suspended Medications -- 1. Lisinopril: 20 mg Oral Every Night Recent Lab Results: Results: I have reviewed these laboratory results: Glucose_POCT Trending View [id number] 17:14:00 02-Apr-2018 11:05:00 02-Apr-2018 07:21:00 02-Apr-2018 03:09:00 01-Apr-2018 23:14:00 01-Apr-2018 19:21:00 17-Hya-[id number]:19:00 01-Apr-2018 11:07:00 01-Apr-2018 07:27:00 01-Apr-2018 03:17:00 01-Apr-2018 00:07:00Glucose-HHLL511 H 310 H 223 H 199 H 167 H 174 H 152H 181 H 228 H 168 H 175 H Renal Function Panel Trending View [id number]-Hsj-[id number] 02:35:00 01-Apr-2018 18:56:00 01-Apr-2018 03:26:00Glucose, Ynuvx339 H 169 H 167 OTA525 L 134 L 137K4.1 4.2 4.4CL97 L 99 100Bicarbonate, Serum27 28 26Anion Gap, Serum13 11 51GAJ65 20 73XAJYF1.21 1.35 H 1.30GFR-Non Emzrepsu07 A 53 A 55 AGFR- Ancgsghz51 64 67Calcium, Serum8.5 L 8.8 8.7Phosphorus, Serum3.6 3.3 4.0ALB3.5 3.7 3.7 Cortisol P.M. Trending View Ahmtwj31-Mgt-0513 20:38:00 01-Apr-2018 18:56:00 01-Apr-2018 17:14:00Cortisol P.M.13.8 H 22.4 H 34.8 H Assessment and Plan:Assessment: Mr. Elkins is a 67 yo WM with no known history of CAD, who has a past medicalhistory of HTN, HLD, T2DM, Brigida's disease, hypothyroidism, COPD, AKASH onCPAP, prostate ca s/p prostatectomy in 2011, and psoriasis who was [facility]to [facility] service at [facility] on 03/18 forCA joanna.Endocrine consulted fr evaluation of Brigida disease and treatment periop Patient was on supra-therapeutic dose of HCT 20-0-20 , fludrocortisone 0.1 ,mgdailyPatient has uncontrolled HTN and uncontrolled BSIVC filter placed on 03/23 1. Bunn's Disease-- Fludrocortisone 0.05 mg 4 times weekly [...] noon - 2.5 mg @ 5pm 2. Q2KZ--ilhzvyfx Glargine today as : 20 units QHS and Lispro 6 TIDAC-ISS correction to 2 units per 50 >150--Will follow Please page with questions [phone] Patient seen and examined, plan discussed with [...] patient (as noted in the above attestation) [id number] Electronic Signatures:Starr Quevedo) (Signed 03-Apr-2018 15:53)Authored: Signature/Cosignature/Attestat ionCo-Signer: Service, Subjective Data, Objective Data, Assessment and Plan,Signature/Cosignature/Att estationHasmukh Stephenson (Resident)) (Signed 02-Apr-2018 17:27)Authored: Service, Subjective Data, Objective Data, Assessment and Plan,Signature/Cosignature/Att estation Last Updated: 03-Apr-2018 15:53 by Starr Quevedo) Normal [facility] GLUCOSE-POCTon 04-02-2018 Glucose mass conc 200 mg/dL High 74 - 99 [facility] Comment on above: Performed By: #### E MRAD ####NO LOCATION NEEDED Glucose mass conc 137 mg/dL High 74 - 99 [facility] Comment on above: Performed By: #### E MRAD ####NO LOCATION NEEDED Glucose mass conc 310 mg/dL High 74 - 99 [facility] Comment on above: Result Comment: Glu2 : Fingertip - Capillar Performed By: #### E MRAD ####NO LOCATION NEEDED Glucose mass conc 223 mg/dL High 74 - 99 [facility] Comment on above: Result Comment: Glu2 : Fingertip - Capillar Performed By: #### E MRAD ####NO LOCATION NEEDED Glucose mass conc 199 mg/dL High 74 - 99 [facility] Comment on above: Performed By: #### E MRAD ####NO LOCATION NEEDED Glucose mass conc 167 mg/dL High 74 - 99 [facility] Comment on above: Performed By: #### E MRAD ####NO LOCATION NEEDED MAGNESIUMon 04-02-2018 Magnesium mass conc 1.88 mg/dL Normal 1.60 - 2.40 [facility] Comment on above: Performed By: #### E MRAD ####NO LOCATION NEEDED RENAL FUNCTION PANELon 04-02 Albumin mass conc 3.5 g/dL Normal 3.4 - 5.0 [facility] Comment on above: Performed By: #### E MRAD ####NO LOCATION NEEDED Anion gap 3 molar conc 13 mmol/L Normal 10 - 20 [facility] Comment on above: Performed By: #### E MRAD ####NO LOCATION NEEDED Calcium mass conc 8.5 mg/dL Low 8.6 - 10.6 [facility] Comment on above: Performed By: #### E MRAD ####NO LOCATION NEEDED Chloride molar conc 97 mmol/L Low 98 - 107 [facility] Comment on above: Performed By: #### E MRAD ####NO LOCATION NEEDED Creatinine mass conc 1.21 mg/dL Normal 0.50 - 1.30 [facility] Comment on above: Performed By: #### E MRAD ####NO LOCATION NEEDED GFR- AM. 73 mL/min/1.73m2 Normal >60 [facility] Comment on above: Result Comment: CALC ULATIONS OF ESTIMATED GFR ARE PERFORMED USING THE MDRD STUDY EQUATION FOR THE IDMS-TRACEABLE CREATININE METHODS. CLIN CHEM 2007;53:766-72 Performed By: #### E MRAD ####NO LOCATION NEEDED GFR-NON AM. 60 mL/min/1.73m2 Abnormal >60 [facility] Comment on above: Performed By: #### E MRAD ####NO LOCATION NEEDED Glucose mass conc 182 mg/dL High 74 - 99 [facility] Comment on above: Performed By: #### E MRAD ####NO LOCATION NEEDED HCO3 molar conc (Bld) 27 mmol/L Normal 21 - 32 [facility] Comment on above: Performed By: #### E MRAD ####NO LOCATION NEEDED Phosphate mass conc 3.6 mg/dL Normal 2.5 - 4.9 [facility] Comment on above: Result Comment: The performance characteristics of phosphorus testing in heparinized plasma have been validated by the individual laboratory site where testing is performed. Testing on heparinized plasma is not approved by the FDA; however, such approval is not necessary. Performed By: #### E MRAD ####NO LOCATION NEEDED Potassium molar conc 4.1 mmol/L Normal 3.5 - 5.3 [facility] Comment on above: Performed By: #### E MRAD ####NO LOCATION NEEDED Sodium molar conc 133 mmol/L Low 136 - 145 [facility] Comment on above: Performed By: #### E MRAD ####NO LOCATION NEEDED Urea nitrogen mass conc 21 mg/dL Normal 6 - 23 [facility] Comment on above: Performed By: #### E MRAD ####NO LOCATION NEEDED TH CHEST 1 VIEWon 04-02-2018 TH CHEST 1 VIEW Name: DON ELKINS STUDY:TH CHEST 1 VIEW; 04/02/2018 4:03 am INDICATION:Signs/Symptoms: AM rounds. COMPARISON:Chest radiograph from 04/01/2018 ORDERING CLINICIAN:TESSIE BYRD FINDINGS:Interval extubation and removal of enteric tube. Right IJ Purdin-Ganzcatheter has also been removed. There has also [...] Electronically signed by: STANISLAV RADFORD MD Normal [facility] ARTERIAL FULL PANELon 2017 Anion gap 3 molar conc 10 mmol/L Normal 10 - 25 [facility] Comment on above: Performed By: #### E MRAD ####NO LOCATION NEEDED BASE EXCESS-BLOOD 1.9 mmol/L Normal -2.0 - 3.0 [facility] Comment on above: Performed By: #### E MRAD ####NO LOCATION NEEDED CALCIUM,IONIZED 1.12 mmol/L Normal 1.10 - 1.33 [facility] Comment on above: Performed By: #### E MRAD ####NO LOCATION NEEDED Chloride molar conc 100 mmol/L Normal 98 - 107 [facility] Comment on above: Performed By: #### E MRAD ####NO LOCATION NEEDED Glucose mass conc 151 mg/dL High 74 - 99 [facility] Comment on above: Performed By: #### E MRAD ####NO LOCATION NEEDED Hematocrit Auto Volume Fraction (Bld) 30.0 % Low 41.0 - 52.0 [facility] Comment on above: Performed By: #### E MRAD ####NO LOCATION NEEDED HGB,CALCULATED 10.2 g/dL Low 13.5 - 17.5 [facility] Comment on above: Performed By: #### E MRAD ####NO LOCATION NEEDED Lactate molar conc 2.3 mmol/L High 0.4 - 2.0 [facility] Comment on above: Performed By: #### E MRAD ####NO LOCATION NEEDED Oxygen ppres (BldA) 82 mm[Hg] Low 85 - 95 [facility] Comment on above: Performed By: #### E MRAD ####NO LOCATION NEEDED PCO2 41 mmHg Normal 38 - 42 [facility] Comment on above: Performed By: #### E MRAD ####NO LOCATION NEEDED pH (Bld) 7.42 [pH] Normal 7.38 - 7.42 [facility] Comment on above: Performed By: #### E MRAD ####NO LOCATION NEEDED Potassium molar conc 4.1 mmol/L Normal 3.5 - 5.3 [facility] Comment on above: Performed By: #### E MRAD ####NO LOCATION NEEDED RBC Auto #/vol (Bld) 26.6 mmol/L High 22.0 - 26.0 [facility] Comment on above: Performed By: #### E MRAD ####NO LOCATION NEEDED SO2 98 % Normal 94 - 100 [facility] Comment on above: Performed By: #### E MRAD ####NO LOCATION NEEDED Sodium molar conc 132 mmol/L Low 136 - 145 [facility] Comment on above: Performed By: #### E MRAD ####NO LOCATION NEEDED Anion gap 3 molar conc 8 mmol/L Low 10 - 25 [facility] Comment on above: Performed By: #### E MRAD ####NO LOCATION NEEDED BASE EXCESS-BLOOD 3.0 mmol/L Normal -2.0 - 3.0 [facility] Comment on above: Performed By: #### E MRAD ####NO LOCATION NEEDED CALCIUM,IONIZED 1.17 mmol/L Normal 1.10 - 1.33 [facility] Comment on above: Performed By: #### E MRAD ####NO LOCATION NEEDED Chloride molar conc 101 mmol/L Normal 98 - 107 [facility] Comment on above: Performed By: #### E MRAD ####NO LOCATION NEEDED Glucose mass conc 164 mg/dL High 74 - 99 [facility] Comment on above: Performed By: #### E MRAD ####NO LOCATION NEEDED Hematocrit Auto Volume Fraction (Bld) 29.0 % Low 41.0 - 52.0 [facility] Comment on above: Performed By: #### E MRAD ####NO LOCATION NEEDED HGB,CALCULATED 9.9 g/dL Low 13.5 - 17.5 [facility] Comment on above: Performed By: #### E MRAD ####NO LOCATION NEEDED Lactate molar conc 2.2 mmol/L High 0.4 - 2.0 [facility] Comment on above: Performed By: #### E MRAD ####NO LOCATION NEEDED Oxygen ppres (BldA) 75 mm[Hg] Low 85 - 95 [facility] Comment on above: Performed By: #### E MRAD ####NO LOCATION NEEDED PCO2 43 mmHg High 38 - 42 [facility] Comment on above: Performed By: #### E MRAD ####NO LOCATION NEEDED pH (Bld) 7.42 [pH] Normal 7.38 - 7.42 [facility] Comment on above: Performed By: #### E MRAD ####NO LOCATION NEEDED Potassium molar conc 4.3 mmol/L Normal 3.5 - 5.3 [facility] Comment on above: Performed By: #### E MRAD ####NO LOCATION NEEDED RBC Auto #/vol (Bld) 27.9 mmol/L High 22.0 - 26.0 [facility] Comment on above: Performed By: #### E MRAD ####NO LOCATION NEEDED SO2 97 % Normal 94 - 100 [facility] Comment on above: Performed By: #### E MRAD ####NO LOCATION NEEDED Sodium molar conc 133 mmol/L Low 136 - 145 [facility] Comment on above: Performed By: #### E MRAD ####NO LOCATION NEEDED Anion gap 3 molar conc 11 mmol/L Normal 10 - 25 [facility] Comment on above: Performed By: #### E MRAD ####NO LOCATION NEEDED BASE EXCESS-BLOOD 0.9 mmol/L Normal -2.0 - 3.0 [facility] Comment on above: Performed By: #### E MRAD ####NO LOCATION NEEDED CALCIUM,IONIZED 1.16 mmol/L Normal 1.10 - 1.33 [facility] Comment on above: Performed By: #### E MRAD ####NO LOCATION NEEDED Chloride molar conc 101 mmol/L Normal 98 - 107 [facility] Comment on above: Performed By: #### E MRAD ####NO LOCATION NEEDED Glucose mass conc 177 mg/dL High 74 - 99 [facility] Comment on above: Performed By: #### E MRAD ####NO LOCATION NEEDED Hematocrit Auto Volume Fraction (Bld) 31.0 % Low 41.0 - 52.0 [facility] Comment on above: Performed By: #### E MRAD ####NO LOCATION NEEDED HGB,CALCULATED 10.5 g/dL Low 13.5 - 17.5 [facility] Comment on above: Performed By: #### E MRAD ####NO LOCATION NEEDED Lactate molar conc 3.3 mmol/L High 0.4 - 2.0 [facility] Comment on above: Performed By: #### E MRAD ####NO LOCATION NEEDED Oxygen ppres (BldA) 73 mm[Hg] Low 85 - 95 [facility] Comment on above: Performed By: #### E MRAD ####NO LOCATION NEEDED PCO2 38 mmHg Normal 38 - 42 [facility] Comment on above: Performed By: #### E MRAD ####NO LOCATION NEEDED pH (Bld) 7.43 [pH] High 7.38 - 7.42 [facility] Comment on above: Performed By: #### E MRAD ####NO LOCATION NEEDED Potassium molar conc 4.2 mmol/L Normal 3.5 - 5.3 [facility] Comment on above: Performed By: #### E MRAD ####NO LOCATION NEEDED RBC Auto #/vol (Bld) 25.2 mmol/L Normal 22.0 - 26.0 [facility] Comment on above: Performed By: #### E MRAD ####NO LOCATION NEEDED SO2 96 % Normal 94 - 100 [facility] Comment on above: Performed By: #### E MRAD ####NO LOCATION NEEDED Sodium molar conc 133 mmol/L Low 136 - 145 [facility] Comment on above: Performed By: #### E MRAD ####NO LOCATION NEEDED Anion gap 3 molar conc 12 mmol/L Normal 10 - 25 [facility] Comment on above: Performed By: #### E MRAD ####NO LOCATION NEEDED BASE EXCESS-BLOOD 3.5 mmol/L High -2.0 - 3.0 [facility] Comment on above: Performed By: #### E MRAD ####NO LOCATION NEEDED CALCIUM,IONIZED 1.12 mmol/L Normal 1.10 - 1.33 [facility] Comment on above: Performed By: #### E MRAD ####NO LOCATION NEEDED Chloride molar conc 100 mmol/L Normal 98 - 107 [facility] Comment on above: Performed By: #### E MRAD ####NO LOCATION NEEDED Glucose mass conc 177 mg/dL High 74 - 99 [facility] Comment on above: Performed By: #### E MRAD ####NO LOCATION NEEDED Hematocrit Auto Volume Fraction (Bld) 32.0 % Low 41.0 - 52.0 [facility] Comment on above: Performed By: #### E MRAD ####NO LOCATION NEEDED HGB,CALCULATED 10.9 g/dL Low 13.5 - 17.5 [facility] Comment on above: Performed By: #### E MRAD ####NO LOCATION NEEDED Lactate molar conc 2.8 mmol/L High 0.4 - 2.0 [facility] Comment on above: Performed By: #### E MRAD ####NO LOCATION NEEDED Oxygen ppres (BldA) 85 mm[Hg] Normal 85 - 95 [facility] Comment on above: Performed By: #### E MRAD ####NO LOCATION NEEDED PCO2 44 mmHg High 38 - 42 [facility] Comment on above: Performed By: #### E MRAD ####NO LOCATION NEEDED pH (Bld) 7.42 [pH] Normal 7.38 - 7.42 [facility] Comment on above: Performed By: #### E MRAD ####NO LOCATION NEEDED Potassium molar conc 4.6 mmol/L Normal 3.5 - 5.3 [facility] Comment on above: Performed By: #### E MRAD ####NO LOCATION NEEDED RBC Auto #/vol (Bld) 28.5 mmol/L High 22.0 - 26.0 [facility] Comment on above: Performed By: #### E MRAD ####NO LOCATION NEEDED SO2 99 % Normal 94 - 100 [facility] Comment on above: Performed By: #### E MRAD ####NO LOCATION NEEDED Sodium molar conc 136 mmol/L Normal 136 - 145 [facility] Comment on above: Performed By: #### E MRAD ####NO LOCATION NEEDED Anion gap 3 molar conc 9 mmol/L Low 10 - 25 [facility] Comment on above: Performed By: #### E MRAD ####NO LOCATION NEEDED BASE EXCESS-BLOOD 2.4 mmol/L Normal -2.0 - 3.0 [facility] Comment on above: Performed By: #### E MRAD ####NO LOCATION NEEDED CALCIUM,IONIZED 1.10 mmol/L Normal 1.10 - 1.33 [facility] Comment on above: Performed By: #### E MRAD ####NO LOCATION NEEDED Chloride molar conc 102 mmol/L Normal 98 - 107 [facility] Comment on above: Performed By: #### E MRAD ####NO LOCATION NEEDED Glucose mass conc 166 mg/dL High 74 - 99 [facility] [facility] Comment on above: Performed By: #### E MRAD ####NO LOCATION NEEDED Hematocrit Auto Volume Fraction (Bld) 29.0 % Low 41.0 - 52.0 [facility] Comment on above: Performed By: #### E MRAD ####NO LOCATION NEEDED HGB,CALCULATED 9.9 g/dL Low 13.5 - 17.5 [facility] Comment on above: Performed By: #### E MRAD ####NO LOCATION NEEDED Lactate molar conc 3.1 mmol/L High 0.4 - 2.0 [facility] Comment on above: Performed By: #### E MRAD ####NO LOCATION NEEDED Oxygen ppres (BldA) 115 mm[Hg] High 85 - 95 [facility] Comment on above: Performed By: #### E MRAD ####NO LOCATION NEEDED PCO2 42 mmHg Normal 38 - 42 [facility] Comment on above: Performed By: #### E MRAD ####NO LOCATION NEEDED pH (Bld) 7.42 [pH] Normal 7.38 - 7.42 [facility] Comment on above: Performed By: #### E MRAD ####NO LOCATION NEEDED Potassium molar conc 4.4 mmol/L Normal 3.5 - 5.3 [facility] Comment on above: Performed By: #### E MRAD ####NO LOCATION NEEDED RBC Auto #/vol (Bld) 27.2 mmol/L High 22.0 - 26.0 [facility] Comment on above: Performed By: #### E MRAD ####NO LOCATION NEEDED SO2 99 % Normal 94 - 100 [facility] Comment on above: Performed By: #### E MRAD ####NO LOCATION NEEDED Sodium molar conc 134 mmol/L Low 136 - 145 [facility] Comment on above: Performed By: #### E MRAD ####NO LOCATION NEEDED Anion gap 3 molar conc 10 mmol/L Normal 10 - 25 [facility] Comment on above: Performed By: #### E MRAD ####NO LOCATION NEEDED BASE EXCESS-BLOOD 1.2 mmol/L Normal -2.0 - 3.0 [facility] Comment on above: Performed By: #### E MRAD ####NO LOCATION NEEDED CALCIUM,IONIZED 1.10 mmol/L Normal 1.10 - 1.33 [facility] Comment on above: Performed By: #### E MRAD ####NO LOCATION NEEDED Chloride molar conc 102 mmol/L Normal 98 - 107 [facility] Comment on above: Performed By: #### E MRAD ####NO LOCATION NEEDED Glucose mass conc 174 mg/dL High 74 - 99 [facility] Comment on above: Performed By: #### E MRAD ####NO LOCATION NEEDED Hematocrit Auto Volume Fraction (Bld) 30.0 % Low 41.0 - 52.0 [facility] Comment on above: Performed By: #### E MRAD ####NO LOCATION NEEDED HGB,CALCULATED 10.2 g/dL Low 13.5 - 17.5 [facility] Comment on above: Performed By: #### E MRAD ####NO LOCATION NEEDED Lactate molar conc 2.8 mmol/L High 0.4 - 2.0 [facility] Comment on above: Performed By: #### E MRAD ####NO LOCATION NEEDED Oxygen ppres (BldA) 133 mm[Hg] High 85 - 95 [facility] Comment on above: Performed By: #### E MRAD ####NO LOCATION NEEDED PCO2 41 mmHg Normal 38 - 42 [facility] Comment on above: Performed By: #### E MRAD ####NO LOCATION NEEDED pH (Bld) 7.41 [pH] Normal 7.38 - 7.42 [facility] Comment on above: Performed By: #### E MRAD ####NO LOCATION NEEDED Potassium molar conc 4.3 mmol/L Normal 3.5 - 5.3 [facility] Comment on above: Performed By: #### E MRAD ####NO LOCATION NEEDED RBC Auto #/vol (Bld) 26.0 mmol/L Normal 22.0 - 26.0 [facility] Comment on above: Performed By: #### E MRAD ####NO LOCATION NEEDED SO2 99 % Normal 94 - 100 [facility] Comment on above: Performed By: #### E MRAD ####NO LOCATION NEEDED Sodium molar conc 134 mmol/L Low 136 - 145 [facility] Comment on above: Performed By: #### E MRAD ####NO LOCATION NEEDED Anion gap 3 molar conc 13 mmol/L Normal 10 - 25 [facility] Comment on above: Performed By: #### E MRAD ####NO LOCATION NEEDED BASE EXCESS-BLOOD -0.2 mmol/L Normal -2.0 - 3.0 [facility] Comment on above: Performed By: #### E MRAD ####NO LOCATION NEEDED CALCIUM,IONIZED 1.09 mmol/L Low 1.10 - 1.33 [facility] Comment on above: Performed By: #### E MRAD ####NO LOCATION NEEDED Chloride molar conc 101 mmol/L Normal 98 - 107 [facility] Comment on above: Performed By: #### E MRAD ####NO LOCATION NEEDED Glucose mass conc 176 mg/dL High 74 - 99 [facility] Comment on above: Performed By: #### E MRAD ####NO LOCATION NEEDED Hematocrit Auto Volume Fraction (Bld) 37.0 % Low 41.0 - 52.0 [facility] Comment on above: Performed By: #### E MRAD ####NO LOCATION NEEDED HGB,CALCULATED 12.6 g/dL Low 13.5 - 17.5 [facility] Comment on above: Performed By: #### E MRAD ####NO LOCATION NEEDED Lactate molar conc 2.6 mmol/L High 0.4 - 2.0 [facility] Comment on above: Performed By: #### E MRAD ####NO LOCATION NEEDED Oxygen ppres (BldA) 91 mm[Hg] Normal 85 - 95 [facility] Comment on above: Performed By: #### E MRAD ####NO LOCATION NEEDED PCO2 41 mmHg Normal 38 - 42 [facility] Comment on above: Performed By: #### E MRAD ####NO LOCATION NEEDED pH (Bld) 7.39 [pH] Normal 7.38 - 7.42 [facility] Comment on above: Performed By: #### E MRAD ####NO LOCATION NEEDED Potassium molar conc 4.5 mmol/L Normal 3.5 - 5.3 [facility] Comment on above: Performed By: #### E MRAD ####NO LOCATION NEEDED RBC Auto #/vol (Bld) 24.8 mmol/L Normal 22.0 - 26.0 [facility] Comment on above: Performed By: #### E MRAD ####NO LOCATION NEEDED SO2 98 % Normal 94 - 100 [facility] Comment on above: Performed By: #### E MRAD ####NO LOCATION NEEDED Sodium molar conc 134 mmol/L Low 136 - 145 [facility] Comment on above: Performed By: #### E MRAD ####NO LOCATION NEEDED CALCIUM, IONIZEDon 8 CALCIUM,IONIZED 1.04 mmol/L Low 1.10 - 1.33 [facility] Comment on above: Result Comment: [...] (RBC) 13.2 % Normal 11.5 - 14.5 [facility] Comment on above: Performed By: #### E MRAD ####NO LOCATION NEEDED Hematocrit Auto Volume Fraction (Bld) 29.9 % Low 41.0 - 52.0 [facility] Comment on above: Performed By: #### E MRAD ####NO LOCATION NEEDED Hemoglobin mass conc (Bld) 10.0 g/dL Low 13.5 - 17.5 [facility] Comment on above: Performed By: #### E MRAD ####NO LOCATION NEEDED MCHC Auto mass conc (RBC) 33.4 g/dL Normal 32.0 - 36.0 [facility] Comment on above: Performed By: #### E MRAD ####NO LOCATION NEEDED MCV Auto Entitic volume (RBC) 93 fL Normal 80 - 100 [facility] Comment on above: Performed By: #### E MRAD ####NO LOCATION NEEDED Nucleated RBC/100 WBC Ratio (Bld) 0.0 /100 WBC Normal 0.0-0.0 [facility] Comment on above: Performed By: #### E MRAD ####NO LOCATION NEEDED Platelets Auto #/vol (Bld) 144 10*3/uL Low 150 - 450 [facility] Comment on above: Performed By: #### E MRAD ####NO LOCATION NEEDED RBC Auto #/vol (Bld) 3.23 x10E12/L Low 4.50 - 5.90 [facility] Comment on above: Performed By: #### E MRAD ####NO LOCATION NEEDED WBC Auto #/vol (Bld) 11.4 10*3/uL High 4.4 - 11.3 [facility] Comment on above: Performed By: #### E MRAD ####NO LOCATION NEEDED Erythrocyte distribution width Auto Ratio (RBC) 13.1 % Normal 11.5 - 14.5 [facility] Comment on above: Performed By: #### E MRAD ####NO LOCATION NEEDED Hematocrit Auto Volume Fraction (Bld) 32.1 % Low 41.0 - 52.0 [facility] Comment on above: Performed By: #### E MRAD ####NO LOCATION NEEDED Hemoglobin mass conc (Bld) 10.9 g/dL Low 13.5 - 17.5 [facility] Comment on above: Performed By: #### E MRAD ####NO LOCATION NEEDED MCHC Auto mass conc (RBC) 34.0 g/dL Normal 32.0 - 36.0 [facility] Comment on above: Performed By: #### E MRAD ####NO LOCATION NEEDED MCV Auto Entitic volume (RBC) 92 fL Normal 80 - 100 [facility] Comment on above: Performed By: #### E MRAD ####NO LOCATION NEEDED Nucleated RBC/100 WBC Ratio (Bld) 0.0 /100 WBC Normal 0.0-0.0 [facility] Comment on above: Performed By: #### E MRAD ####NO LOCATION NEEDED Platelets Auto #/vol (Bld) 158 10*3/uL Normal 150 - 450 [facility] Comment on above: Performed By: #### E MRAD ####NO LOCATION NEEDED RBC Auto #/vol (Bld) 3.50 x10E12/L Low 4.50 - 5.90 [facility] Comment on above: Performed By: #### E MRAD ####NO LOCATION NEEDED WBC Auto #/vol (Bld) 9.7 10*3/uL Normal 4.4 - 11.3 [facility] Comment on above: Performed By: #### E MRAD ####NO LOCATION NEEDED COAGULATION SCREENon -14-2 018 aPTT Coag time (Bld) 25 s Low 28 - 38 [facility] Comment on above: Result Comment: Note new reference range as of 03/10/2018. THE APTT IS NO LONGER USED FOR MONITORING UNFRACTIONATED HEPARIN THERAPY. FOR MONITORING HEPARIN THERAPY, USE THE HEPARIN ASSAY. Performed By: #### E MRAD ####NO LOCATION NEEDED INR Coag RelTime (PPP) 1.3 {INR} High 0.9 - 1.1 [facility] Comment on above: Performed By: #### E MRAD ####NO LOCATION NEEDED Prothrombin time (PT) Coag time (PPP) 14.0 s High 9.7 - 12.7 [facility] Comment on above: Result Comment: Note new reference range as of 03/10/2018. Performed By: #### E MRAD ####NO LOCATION NEEDED CORTISOL, P.M.on 04-01-2018 CORTISOL, P.M. 22.4 ug/dL High 2.5 - 10.0 [facility] Comment on above: Performed By: #### E MRAD ####NO LOCATION NEEDED CORTISOL, P.M. 34.8 ug/dL High 2.5 - 10.0 [facility] Comment on above: Performed By: [...] is well controlled. Objective Data: Objective InformationT [id number]/5997 %Date/Time04/01 4: 6: 6: 14: 6:00Range(36.5C - [...] sec/cm-5)70(68 - 74)03/31 19:00 Direct Arterial Blood KzyyrxhyHptviqmy374(129 - 161)04/01 6:45Diastolic (mm Hg)67(53 - 70)04/01 6:45Mean (mm Hg)91(76 - 96)04/01 6:45Pulse Pressure (mm Hg)85(71 - 96)04/01 6:25Mnfdbcxu553(129 - 161)04/01 6:45Diastolic (mm Hg)67(53 - 70)04/01 6:45Mean (mm Hg)91(76 - 96)04/01 6:45Pulse Pressure (mm Hg)85(71 - 96)04/01 6:45 ILQVvbeyhrb30(27 - 39)04/01 6:00Diastolic (mm Hg)12(10 - 22)04/01 6:00Mean (mm Hg)18(18 - 29)04/01 6:00 ---- Intake and Output -----Mn/Dy/Year TimeIntakeOutputNetNov 2017 6:00 am991.1096474Tpn 2017 10:00 pp4694.52876496Ish 2017 2:00 pm000 The Intake and Output Totals for the last 24 hours are:[id number] Drain and tube details (included in I&O [...] Canceled Recent Arterial Blood Gas Results 04/01/2018 04:62vQ467 24 h range: ( 63 - 392 )pH7.42 24 h range: ( 7.28 - 7.42 )sCQ476 24 h range: ( 38 - 51 )SO299 24 h range: ( 91 - 100 )Base Excess3.5 24 h range: ( -4.5 - 3.5 )Ydicvhplyfy05.5 24 h range: ( 22 - 28.5 [...] history of CAD, HTN, HLD, DM2, Gerd, Bunn's, andhypothyroid presents from the OR s/p CABG [...] for increased lactate ENDO: History of diabetes, Brigida's and hypothyroid. HbA1c: 7.9. Endocrinefollowing patient. Patient on insulin drip 03/31, transitioned to sliding scalemorning 04/01 -->- Consulted Endocrine for management of Bunn's and diabetes- Continue hydrocortisone- Maintain BG <180, [...] - dcLeft Filiberto Richey Dispo: Continue SICU care.#[id number] Code Status: Code StatusFull Code SCIP:Urinary Catheter Removed Post-Op Day 2: noReason Patient Needs Her: Strict I&0Patient on Beta Danica Prior to Admission: noProphylactic antibiotics scheduled to be discontinued with 24 hr of anesthesiaend time (48 hr for cardiac surgery): yesType of VTE Prophylaxis Ordered: Subcutaneous heparin and SCDs Signature/Cosignature/Attestat ion:Comments/ Additional Qegkzkzq61l/o male s/p CABG x3 with Dr Gaston. [...] 11:56 by Cristiano Wynne ( (Resident)) Normal [facility] Daily Progress Note-Endocrin ologyon 04-01-2018 [...] Intake and Output -----Mn/Dy/Year TimeIntakeOutputNetNov 2017 6:00 am991.4880071Cyi 2017 10:00 zm0861.98645039Tbm 2017 2:00 pm000 The Intake and Output Totals for the last 24 hours are:[id number] Physical Exam: Constitutional: Well developed, awake/alert/oriented x3, no distress, alert andcooperativeGastrointestinal : Nondistended, soft, non-tender, no rebound tenderness orguarding, no masses palpable, no organomegaly, +BS, no bruitsSkin: Warm and dry, no lesions, no rashes Assessment and Plan:Assessment: Mr. Elkins is a 67 yo WM with no known history of CAD, who has a past medicalhistory of HTN, HLD, T2DM, Bunn's disease, hypothyroidism, COPD, AKASH onCPAP, prostate ca s/p prostatectomy in 2011, and psoriasis [facility] from [facility] on 03/18 forCABG eval.Endocrine consulted fr evaluation of Bunn disease and treatment periop Patient was on supra-therapeutic dose of HCT 20-0-20 , fludrocortisone 0.1 ,mgdailyPatient has uncontrolled HTN and uncontrolled BSIVC filter placed on 03/23 1. Bunn's Disease-- Fludrocortisone 0.05 mg 4 times weekly [...] drawing blood at 9 pm--Will follow 2. T7IQ--AOnvmj Glargine today as : 20 units QHS and L6 TIDAC-Please change ISS correction to 2 units per 50 >150--Will follow Please page with questions [phone] Patient seen and examined, plan discussed with [...] patient (as noted in the above attestation) [id number] Electronic Signatures:Starr Quevedo) (Signed 02-Apr-2018 10:02)Authored: Signature/Cosignature/Attestat ionCo-Signer: Service, Subjective Data, Objective Data, Assessment and Plan,Signature/Cosignature/Att estationHasmukh Stephenson (Resident)) (Signed 01-Apr-2018 15:26)Authored: Service, Subjective Data, Objective Data, Assessment and Plan,Signature/Cosignature/Att estation Last Updated: 02-Apr-2018 10:02 by Starr Quevedo) Normal [facility] Discharge Vslhauy2ta 11-14-2 018 Protein mass conc Discharge Orders:Ant icipated Discharge Date: Anticipated Discharge Bwpt57-[id number] Problem List: Prelim Disch Dx: History of Bunn's disease: Catalog Name: Personal history of otherendocrine, nutritional and metabolic disease Pulmonary embolism, bilateral: Catalog Name: Other pulmonary embolismwithout acute cor pulmonale S/P IVC filter: Onset Date: 23-Mar-2018, Catalog Name: Presence of othervascular implants and grafts, Description: by Severiano Stapleton at [facility] S/P CABG x 3: Onset Date: 31-Mar-2018, Catalog Name: Presence ofaortocoronary bypass graft, Description: by Jc Gaston at [facility] CAD (coronary artery disease): Catalog Name: Atherosclerotic heart diseaseof sycuan coronary artery without angina pectoris Significant Events:Surgical [...] have your follow up visit with your court administrator. They will clear youto exercise and further refer you to an outpatient cardiac rehab facility. Labs 1: Lab Test(s)Basic Metabolic Panel, CBC, Magnesium Date To Be DrawnOnce the week following discharge by home care Call Results ToDr. Sal Sabillon and Dr. Levi Pisano CommentsINRs to be done by [facility] coumadin clinic Oxygen:Other Instructions Incentive spirometer 10x/hr [...] obtained from the Primary Care Physician or Military Technology Specialist. - For chest tightness or pain, extreme [...] and symptoms of Heart Failure: call your Military Technology Specialist if you haveweight gain of 3 pounds or more in less than 3 days; shortness of breath atrest, with activity, or when lying flat; dizziness or fainting. Notify Cardiac Surgeon's office of any readmission to the hospital beforefollow-up appointment with Cardiac Surgeon. Diet: DietAdult Diabetic, Cardiac Hospital Course (Home Care/Gold Form):Hospital Course: Hospital Course: include significant abnormal lab hbckjy9 yo WM with no prior history of CAD, who has a past medical history of HTN,HLD, T2DM, Bunn's disease, hypothyroidism, COPD, AKASH on CPAP, prostate Spring/p prostatectomy in 2012, and psoriasis who was transferred to [facility] from [facility] on 03/18 for CABG eval. [place] to [place] pressure and dyspnea. He as found to havebilat PEs, was started on Heparin gtt, and transferred to [facility]. He wasfound to have a troponin leak at 2.25. Cardiology was consulted and the patientwas diagnosed with ACS, NSTEMI. He underwent a TTE and cath. He had normal EF,mild AI, and triple vessel CAD so was transferred to [facility] for CABG eval.Pulm consulted for PE workup. 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, insulin gtt;one CT with air leak Transferred to T3 04/02 Floor course:- Endocrinology followed patient for DM and Addisons's disease and made finalrecommendations for going home- last CT pulled 04/03- 2 view CXR was done 04/04- epicardial wires were CUT 04/05- electrolytes were replaced as necessary- Patient was diuresed for post op volume overload with Lasix; preop cynhmw782.8 kg; day of discharge wt 107.5 kg- IVC filter was placed on 03/23 preop, will be following up with vascular forretrieval- heparin gtt bridge to coumadin was started per Dr. Gaston for unprovoked PEs asper Pulmonary recs; needs at least 6 months of anticoagulation[facility] PT recs home with PT- anticipate discharge home with home health care coordinator and PT- wilton weaver met with patient 04/07 to discuss discharge instructionsand care- patient had no complaints at discharge and all questions were answered _ HISTORYPMH: HTN, HLD, T2DM, Brigida's disease, hypothyroidism, COPD, AKASH on CPAP,prostate ca s/p prostatectomy in 2012, psoriasis, remote hepatitis B, priorGERD, lumbar Degenerative disk disease, arthritis, kidney stones (current,small), cataract, plantar fasciitis PSH: prostatectomy 2012, R cataract surgery, cholecystectomy, appendectomy,sinus surgery, vasectomy, bilat carpal tunnel release surgery, ganglion cystremoval from hands, cystoscopy 2 weeks ago for microscopic hematuria, rootcanal 2 weeks ago. 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 Please bring insurancecard, drivers license, and medication list CommentsPlease arrive at 1:45 PM for your appt. goal INR 2-3; need at least6 months of coumadin for PE; Dr Pisano is managing Follow-Up Appointment 01: Physician/Dept/Evgeny Gaston - cardiac surgeon Scheduled Date/[id number] 14:00 [facility] [address] [place], [place] [address] [address] - [address] [facility] [address] Phone NumberDr Bautista office [phone] Follow-Up Appointment 02: Physician/Dept/Trell. RACHAEL Purvis Scheduled Date/[id number]-[id number] 11:[address] [place] [address] [place]. [address] Phone [phone] CommentsPlease arrive 10-15 minutes early, bring photo ID, insurance card,discharge summary, and list of current medications and dosages. If unable tokeep this appointment, please call to cancel. Follow-Up Appointment 03: Physician/Dept/ServiceDr. Levi Pisano, Cardiology Scheduled Date/[id number] 14:30 [id number] [facility] [address], [place]. [address] [phone] Phone [phone] CommentsPlease arrive 10-15 minutes early, bring photo ID, insurance card,discharge summary, and list of current medications and dosages. If unable tokeep this appointment, please call to cancel. Follow-Up Appointment 04: Physician/Dept/ServiceDr. Xavier Lake, Endocrinology Scheduled Date/[id number]-[id number] 09:40 [id number] [place]. [address] Phone [phone] CommentsPlease arrive 10-15 minutes early, bring photo ID, insurance card,discharge summary, and list of current medications and dosages. If unable tokeep this appointment, please call to cancel. Follow-Up Appointment 05: Physician/Dept/ServiceDr. Severiano Stapleton, Vascular Surgery Scheduled Date/[id number] 15:[address] [address] Phone [phone] CommentsPlease arrive 10-15 minutes early, bring photo ID, insurance card,discharge summary, and list of current medications and dosages. If unable tokeep this appointment, please call to cancel. Electronic Signatures:Mary Munroe (INSTRUCTOR GROUND SERVICES-PAPER SLITTER) (Signed 06-Apr-2018 18:53)Authored: Discharge Orders, CABG / Valve, Hospital Course (Home Care/GoldForm), Home Care Orders, Provider FINAL REVIEW of Orders, AppointmentsLillie Elder (CLIN COOR) (Signed 01-Apr-2018 14:23)Authored: Discharge Orders, Gold Form - Rebar Worker Karolina Goode (RN) (Signed 02-Apr-2018 13:41)Authored: Discharge OrdersMonet Alcaraz (PT SVS REP) (Signed 07-Apr-2018 14:04)Authored: Alexandra Correa (PAC) (Signed 07-Apr-2018 14:22)Authored: Discharge Orders, CABG / Valve, Hospital Course (Home Care/GoldForm), Home Care Orders, Provider FINAL REVIEW of Orders, Appointments Last Updated: 07-Apr-2018 14:22 by Alexandra Milligan (PAC) Normal [facility] GLUCOSE-POCTon 04-01-2018 Glucose mass conc 174 mg/dL High [address] [place] [address] Comment on above: Performed By: #### E MRAD ####NO LOCATION NEEDED Glucose mass conc 152 mg/dL [address] Comment on above: Result Comment: Glu2 : [facility] Performed By: #### E MRAD ####NO LOCATION NEEDED Glucose mass conc 181 mg/dL [address] Comment on above: Result Comment: Glu2 : [facility] [place] Performed By: #### E MRAD ####NO LOCATION NEEDED Glucose mass conc 228 mg/dL [address] Comment on above: Result Comment: Glu2 : [facility] [place] Performed By: #### E MRAD ####NO LOCATION NEEDED Glucose mass conc 168 mg/dL [address] Comment on above: Performed By: #### E MRAD ####NO LOCATION NEEDED Glucose mass conc 175 mg/dL [address] Comment on above: Performed By: #### E MRAD ####NO LOCATION NEEDED Glucose mass conc 197 mg/dL [address] Comment on above: Performed By: #### E MRAD ####NO LOCATION NEEDED MAGNESIUMon 04-01-2018 Magnesium mass conc 2.15 mg/dL Normal 1.60 - 2.40 [facility] Comment on above: Performed By: #### E MRAD ####NO LOCATION NEEDED Magnesium mass conc 2.30 mg/dL Normal 1.60 - 2.40 [facility] Comment on above: Performed By: #### E MRAD ####NO LOCATION NEEDED RENAL FUNCTION PANELon 04-01 Albumin mass conc 3.7 g/dL Normal 3.4 - 5.0 [facility] [facility] Comment on above: Performed By: #### E MRAD ####NO LOCATION NEEDED Anion gap 3 molar conc 11 mmol/L Normal 10 - 20 [facility] Comment on above: Performed By: #### E MRAD ####NO LOCATION NEEDED Calcium mass conc 8.8 mg/dL Normal 8.6 - 10.6 [facility] Comment on above: Performed By: #### E MRAD ####NO LOCATION NEEDED Chloride molar conc 99 mmol/L Normal 98 - 107 [facility] Comment on above: Performed By: #### E MRAD ####NO LOCATION NEEDED Creatinine mass conc 1.35 mg/dL High 0.50 - 1.30 [facility] Comment on above: Performed By: #### E MRAD ####NO LOCATION NEEDED GFR- AM. 64 mL/min/1.73m2 Normal >60 [facility] Comment on above: Result Comment: CALC ULATIONS OF ESTIMATED GFR ARE PERFORMED USING THE MDRD STUDY EQUATION FOR THE IDMS-TRACEABLE CREATININE METHODS. CLIN CHEM 2007;53:766-72 Performed By: #### E MRAD ####NO LOCATION NEEDED GFR-NON AM. 53 mL/min/1.73m2 Abnormal >60 [facility] Comment on above: Performed By: #### E MRAD ####NO LOCATION NEEDED Glucose mass conc 169 mg/dL High 74 - 99 [facility] Comment on above: Performed By: #### E MRAD ####NO LOCATION NEEDED HCO3 molar conc (Bld) 28 mmol/L Normal 21 - 32 [facility] Comment on above: Performed By: #### E MRAD ####NO LOCATION NEEDED Phosphate mass conc 3.3 mg/dL Normal 2.5 - 4.9 [facility] Comment on above: Result Comment: The performance characteristics of phosphorus testing in heparinized plasma have been validated by the individual laboratory site where testing is performed. Testing on heparinized plasma is not approved by the FDA; however, such approval is not necessary. Performed By: #### E MRAD ####NO LOCATION NEEDED Potassium molar conc 4.2 mmol/L Normal 3.5 - 5.3 [facility] Comment on above: Performed By: #### E MRAD ####NO LOCATION NEEDED Sodium molar conc 134 mmol/L Low 136 - 145 [facility] Comment on above: Performed By: #### E MRAD ####NO LOCATION NEEDED Urea nitrogen mass conc 20 mg/dL Normal 6 - 23 [facility] Comment on above: Performed By: #### E MRAD ####NO LOCATION NEEDED Albumin mass conc Canceled Normal [facility] Comment on above: Order Comment: TEST RENAL FUNCTION PANEL WAS CANCELLED, 04/01/2018 07:29 DUPLICATE ORDER. Performed By: #### E MRAD ####NO LOCATION NEEDED Anion gap 3 molar conc Canceled Normal [facility] Comment on above: Order Comment: TEST RENAL FUNCTION PANEL WAS CANCELLED, 04/01/2018 07:29 DUPLICATE ORDER. Performed By: #### E MRAD ####NO LOCATION NEEDED Calcium mass conc Canceled Normal [facility] Comment on above: Order Comment: TEST RENAL FUNCTION PANEL WAS CANCELLED, 04/01/2018 07:29 DUPLICATE ORDER. Performed By: #### E MRAD ####NO LOCATION NEEDED Chloride molar conc Canceled Normal [facility] Comment on above: Order Comment: TEST RENAL FUNCTION PANEL WAS CANCELLED, 04/01/2018 07:29 DUPLICATE ORDER. Performed By: #### E MRAD ####NO LOCATION NEEDED Creatinine mass conc Canceled Normal [facility] Comment on above: Order Comment: TEST RENAL FUNCTION PANEL WAS CANCELLED, 04/01/2018 07:29 DUPLICATE ORDER. Performed By: #### E MRAD ####NO LOCATION NEEDED GFR- AM. Canceled Normal [facility] Comment on above: Order Comment: TEST RENAL FUNCTION PANEL WAS CANCELLED, 04/01/2018 07:29 DUPLICATE ORDER. Result Comment: CALC ULATIONS OF ESTIMATED GFR ARE PERFORMED USING THE MDRD STUDY EQUATION FOR THE IDMS-TRACEABLE CREATININE METHODS. CLIN CHEM 2007;53:[id number] Performed By: #### E MRAD ####NO LOCATION NEEDED GFR-NON AM. Canceled Normal [facility] Comment on above: Order Comment: TEST RENAL FUNCTION PANEL WAS CANCELLED, 04/01/2018 07:29 DUPLICATE ORDER. Performed By: #### E MRAD ####NO LOCATION NEEDED Glucose mass conc Canceled Normal [facility] Comment on above: Order Comment: TEST RENAL FUNCTION PANEL WAS CANCELLED, 04/01/2018 07:29 DUPLICATE ORDER. Performed By: #### E MRAD ####NO LOCATION NEEDED HCO3 molar conc (Bld) Canceled Normal [facility] Comment on above: Order Comment: TEST RENAL FUNCTION PANEL WAS CANCELLED, 04/01/2018 07:29 DUPLICATE ORDER. Performed By: #### E MRAD ####NO LOCATION NEEDED Phosphate mass conc Canceled Normal [facility] Comment on above: Order Comment: [...] LOCATION NEEDED Potassium molar conc Canceled Normal [facility] Comment on above: Order Comment: TEST RENAL FUNCTION PANEL WAS CANCELLED, 04/01/2018 07:29 DUPLICATE ORDER. Performed By: #### E MRAD ####NO LOCATION NEEDED Sodium molar conc Canceled Normal [facility] Comment on above: Order Comment: TEST RENAL FUNCTION PANEL WAS CANCELLED, 04/01/2018 07:29 DUPLICATE ORDER. Performed By: #### E MRAD ####NO LOCATION NEEDED Urea nitrogen mass conc Canceled Normal [facility] Comment on above: Order Comment: TEST RENAL FUNCTION PANEL WAS CANCELLED, 04/01/2018 07:29 DUPLICATE ORDER. Performed By: #### E MRAD ####NO LOCATION NEEDED Albumin mass conc 3.7 g/dL Normal 3.4 - 5.0 [facility] Comment on above: Performed By: #### E MRAD ####NO LOCATION NEEDED Anion gap 3 molar conc 15 mmol/L Normal 10 - 20 [facility] Comment on above: Performed By: #### E MRAD ####NO LOCATION NEEDED Calcium mass conc 8.7 mg/dL Normal 8.6 - 10.6 [facility] Comment on above: Performed By: #### E MRAD ####NO LOCATION NEEDED Chloride molar conc 100 mmol/L Normal 98 - 107 [facility] Comment on above: Performed By: #### E MRAD ####NO LOCATION NEEDED Creatinine mass conc 1.30 mg/dL Normal 0.50 - 1.30 [facility] Comment on above: Performed By: #### E MRAD ####NO LOCATION NEEDED GFR- AM. 67 mL/min/1.73m2 Normal >60 [facility] Comment on above: Result Comment: CALC ULATIONS OF ESTIMATED GFR ARE PERFORMED USING THE MDRD STUDY EQUATION FOR THE IDMS-TRACEABLE CREATININE METHODS. CLIN CHEM 2007;53:[id number] Performed By: #### E MRAD ####NO LOCATION NEEDED GFR-NON AM. 55 mL/min/1.73m2 Abnormal >60 [facility] Comment on above: Performed By: #### E MRAD ####NO LOCATION NEEDED Glucose mass conc 167 mg/dL High 74 - 99 [facility] Comment on above: Performed By: #### E MRAD ####NO LOCATION NEEDED HCO3 molar conc (Bld) 26 mmol/L Normal 21 - 32 [facility] Comment on above: Performed By: #### E MRAD ####NO LOCATION NEEDED Phosphate mass conc 4.0 mg/dL Normal 2.5 - 4.9 [facility] Comment on above: Result Comment: The performance characteristics of phosphorus testing in heparinized plasma have been validated by the individual laboratory site where testing is performed. Testing on heparinized plasma is not approved by the FDA; however, such approval is not necessary. Performed By: #### E MRAD ####NO LOCATION NEEDED Potassium molar conc 4.4 mmol/L Normal 3.5 - 5.3 [facility] Comment on above: Performed By: #### E MRAD ####NO LOCATION NEEDED Sodium molar conc 137 mmol/L Normal 136 - 145 [facility] Comment on above: Performed By: #### E MRAD ####NO LOCATION NEEDED Urea nitrogen mass conc 20 mg/dL Normal 6 - 23 [facility] Comment on above: Performed By: #### E MRAD ####NO LOCATION NEEDED TH CHEST 1 VIEWon 04-01-2018 TH CHEST 1 VIEW Name: DON ELKINS STUDY:TH CHEST 1 VIEW; 04/01/2018 3:56 am INDICATION:Signs/Symptoms: CT surgey. COMPARISON:03/31/2018 ORDERING CLINICIAN:GERMAN JACK FINDINGS:ET tube is terminating at the level of clavicle heads. Enteric tubeis in place with the tip not included. Right IJ Purdin-Jose catheter isterminating in the right main pulmonary [...] Electronically signed by: EDYTA ARIAS MD Normal [facility] ACT-HIGH RANGEon 03-31-2018 ACT-HIGH RANGE 111 SECONDS Normal 91 - 152 [facility] Comment on above: Performed By: #### E MRAD ####NO LOCATION NEEDED ACT-HIGH RANGE 456 SECONDS High 91 - 152 [facility] Comment on above: Performed By: #### E MRAD ####NO LOCATION NEEDED ACT-HIGH RANGE 415 SECONDS High 91 - 152 [facility] Comment on above: Performed By: #### E MRAD ####NO LOCATION NEEDED ACT-HIGH RANGE 555 SECONDS High 91 - 152 [facility] Comment on above: Performed By: #### E MRAD ####NO LOCATION NEEDED ACT-HIGH RANGE 440 SECONDS High 91 - 152 [facility] Comment on above: Performed By: #### E MRAD ####NO LOCATION NEEDED ACT-HIGH RANGE 437 SECONDS High 91 - 152 [facility] Comment on above: Performed By: #### E MRAD ####NO LOCATION NEEDED ACT-HIGH RANGE 117 SECONDS Normal 91 - 152 [facility] Comment on above: Performed By: #### E MRAD ####NO LOCATION NEEDED ARTERIAL BLOOD GASon 018 BASE EXCESS-BLOOD -3.2 mmol/L Low -2.0 - 3.0 [facility] Comment on above: Performed By: #### E MRAD ####NO LOCATION NEEDED Oxygen ppres (BldA) 63 mm[Hg] Low 85 - 95 [facility] Comment on above: Performed By: #### E MRAD ####NO LOCATION NEEDED PCO2 51 mmHg High 38 - 42 [facility] Comment on above: Performed By: #### E MRAD ####NO LOCATION NEEDED pH (Bld) 7.28 [pH] Low 7.38 - 7.42 [facility] Comment on above: Performed By: #### E MRAD ####NO LOCATION NEEDED RBC Auto #/vol (Bld) 24.0 mmol/L Normal 22.0 - 26.0 [facility] Comment on above: Performed By: #### E MRAD ####NO LOCATION NEEDED SO2 91 % Low 94 - 100 [facility] Comment on above: Performed By: #### E MRAD ####NO LOCATION NEEDED ARTERIAL FULL PANELon 2017 Anion gap 3 molar conc 9 mmol/L Low 10 - 25 [facility] Comment on above: Performed By: #### E MRAD ####NO LOCATION NEEDED BASE EXCESS-BLOOD 0.3 mmol/L Normal -2.0 - 3.0 [facility] Comment on above: Performed By: #### E MRAD ####NO LOCATION NEEDED CALCIUM,IONIZED 1.09 mmol/L Low 1.10 - 1.33 [facility] Comment on above: Performed By: #### E MRAD ####NO LOCATION NEEDED Chloride molar conc 103 mmol/L Normal 98 - 107 [facility] Comment on above: Performed By: #### E MRAD ####NO LOCATION NEEDED Glucose mass conc 159 mg/dL High 74 - 99 [facility] Comment on above: Performed By: #### E MRAD ####NO LOCATION NEEDED Hematocrit Auto Volume Fraction (Bld) 32.0 % Low 41.0 - 52.0 [facility] Comment on above: Performed By: #### E MRAD ####NO LOCATION NEEDED HGB,CALCULATED 10.9 g/dL Low 13.5 - 17.5 [facility] Comment on above: Performed By: #### E MRAD ####NO LOCATION NEEDED Lactate molar conc 2.4 mmol/L High 0.4 - 2.0 [facility] Comment on above: Performed By: #### E MRAD ####NO LOCATION NEEDED Oxygen ppres (BldA) 82 mm[Hg] Low 85 - 95 [facility] Comment on above: Performed By: #### E MRAD ####NO LOCATION NEEDED PCO2 42 mmHg Normal 38 - 42 [facility] Comment on above: Performed By: #### E MRAD ####NO LOCATION NEEDED pH (Bld) 7.39 [pH] Normal 7.38 - 7.42 [facility] Comment on above: Performed By: #### E MRAD ####NO LOCATION NEEDED Potassium molar conc 4.5 mmol/L Normal 3.5 - 5.3 [facility] Comment on above: Performed By: #### E MRAD ####NO LOCATION NEEDED RBC Auto #/vol (Bld) 25.4 mmol/L Normal 22.0 - 26.0 [facility] Comment on above: Performed By: #### E MRAD ####NO LOCATION NEEDED SO2 98 % Normal 94 - 100 [facility] Comment on above: Performed By: #### E MRAD ####NO LOCATION NEEDED Sodium molar conc 133 mmol/L Low 136 - 145 [facility] Comment on above: Performed By: #### E MRAD ####NO LOCATION NEEDED Anion gap 3 molar conc 11 mmol/L Normal 10 - 25 [facility] Comment on above: Performed By: #### E MRAD ####NO LOCATION NEEDED BASE EXCESS-BLOOD -0.5 mmol/L Normal -2.0 - 3.0 [facility] Comment on above: Performed By: #### E MRAD ####NO LOCATION NEEDED CALCIUM,IONIZED 1.13 mmol/L Normal 1.10 - 1.33 [facility] Comment on above: Performed By: #### E MRAD ####NO LOCATION NEEDED Chloride molar conc 104 mmol/L Normal 98 - 107 [facility] Comment on above: Performed By: #### E MRAD ####NO LOCATION NEEDED Glucose mass conc 169 mg/dL High 74 - 99 [facility] Comment on above: Performed By: #### E MRAD ####NO LOCATION NEEDED Hematocrit Auto Volume Fraction (Bld) 32.0 % Low 41.0 - 52.0 [facility] Comment on above: Performed By: #### E MRAD ####NO LOCATION NEEDED HGB,CALCULATED 10.9 g/dL Low 13.5 - 17.5 [facility] Comment on above: Performed By: #### E MRAD ####NO LOCATION NEEDED Lactate molar conc 2.5 mmol/L High 0.4 - 2.0 [facility] Comment on above: Performed By: #### E MRAD ####NO LOCATION NEEDED Oxygen ppres (BldA) 72 mm[Hg] Low 85 - 95 [facility] Comment on above: Performed By: #### E MRAD ####NO LOCATION NEEDED PCO2 43 mmHg High 38 - 42 [facility] Comment on above: Performed By: #### E MRAD ####NO LOCATION NEEDED pH (Bld) 7.37 [pH] Low 7.38 - 7.42 [facility] Comment on above: Performed By: #### E MRAD ####NO LOCATION NEEDED Potassium molar conc 4.8 mmol/L Normal 3.5 - 5.3 [facility] Comment on above: Performed By: #### E MRAD ####NO LOCATION NEEDED RBC Auto #/vol (Bld) 24.9 mmol/L Normal 22.0 - 26.0 [facility] Comment on above: Performed By: #### E MRAD ####NO LOCATION NEEDED SO2 96 % Normal 94 - 100 [facility] Comment on above: Performed By: #### E MRAD ####NO LOCATION NEEDED Sodium molar conc 135 mmol/L Low 136 - 145 [facility] Comment on above: Performed By: #### E MRAD ####NO LOCATION NEEDED Anion gap 3 molar conc 14 mmol/L Normal 10 - 25 [facility] Comment on above: Performed By: #### E MRAD ####NO LOCATION NEEDED BASE EXCESS-BLOOD -1.6 mmol/L Normal -2.0 - 3.0 [facility] Comment on above: Performed By: #### E MRAD ####NO LOCATION NEEDED CALCIUM,IONIZED 1.19 mmol/L Normal 1.10 - 1.33 [facility] Comment on above: Performed By: #### E MRAD ####NO LOCATION NEEDED Chloride molar conc 104 mmol/L Normal 98 - 107 [facility] Comment on above: Performed By: #### E MRAD ####NO LOCATION NEEDED Glucose mass conc 184 mg/dL High 74 - 99 [facility] Comment on above: Performed By: #### E MRAD ####NO LOCATION NEEDED Hematocrit Auto Volume Fraction (Bld) 32.0 % Low 41.0 - 52.0 [facility] Comment on above: Performed By: #### E MRAD ####NO LOCATION NEEDED HGB,CALCULATED 10.9 g/dL Low 13.5 - 17.5 [facility] Comment on above: Performed By: #### E MRAD ####NO LOCATION NEEDED Lactate molar conc 2.9 mmol/L High 0.4 - 2.0 [facility] Comment on above: Performed By: #### E MRAD ####NO LOCATION NEEDED Oxygen ppres (BldA) 79 mm[Hg] Low 85 - 95 [facility] Comment on above: Performed By: #### E MRAD ####NO LOCATION NEEDED PCO2 45 mmHg High 38 - 42 [facility] Comment on above: Performed By: #### E MRAD ####NO LOCATION NEEDED pH (Bld) 7.34 [pH] Low 7.38 - 7.42 [facility] Comment on above: Performed By: #### E MRAD ####NO LOCATION NEEDED Potassium molar conc 5.2 mmol/L Normal 3.5 - 5.3 [facility] Comment on above: Performed By: #### E MRAD ####NO LOCATION NEEDED RBC Auto #/vol (Bld) 24.3 mmol/L Normal 22.0 - 26.0 [facility] Comment on above: Performed By: #### E MRAD ####NO LOCATION NEEDED SO2 97 % Normal 94 - 100 [facility] Comment on above: Performed By: #### E MRAD ####NO LOCATION NEEDED Sodium molar conc 137 mmol/L Normal 136 - 145 [facility] Comment on above: Performed By: #### E MRAD ####NO LOCATION NEEDED Anion gap 3 molar conc 12 mmol/L Normal 10 - 25 [facility] Comment on above: Performed By: #### E MRAD ####NO LOCATION NEEDED BASE EXCESS-BLOOD -1.3 mmol/L Normal -2.0 - 3.0 [facility] Comment on above: Performed By: #### E MRAD ####NO LOCATION NEEDED CALCIUM,IONIZED 1.21 mmol/L Normal 1.10 - 1.33 [facility] Comment on above: Performed By: #### E MRAD ####NO LOCATION NEEDED Chloride molar conc 104 mmol/L Normal 98 - 107 [facility] Comment on above: Performed By: #### E MRAD ####NO LOCATION NEEDED Glucose mass conc 177 mg/dL High 74 - 99 [facility] Comment on above: Performed By: #### E MRAD ####NO LOCATION NEEDED Hematocrit Auto Volume Fraction (Bld) 29.0 % Low 41.0 - 52.0 [facility] Comment on above: Performed By: #### E MRAD ####NO LOCATION NEEDED HGB,CALCULATED 9.9 g/dL Low 13.5 - 17.5 [facility] Comment on above: Performed By: #### E MRAD ####NO LOCATION NEEDED Lactate molar conc 2.7 mmol/L High 0.4 - 2.0 [facility] Comment on above: Performed By: #### E MRAD ####NO LOCATION NEEDED Oxygen ppres (BldA) 67 mm[Hg] Low 85 - 95 [facility] Comment on above: Performed By: #### E MRAD ####NO LOCATION NEEDED PCO2 50 mmHg High 38 - 42 [facility] Comment on above: Performed By: #### E MRAD ####NO LOCATION NEEDED pH (Bld) 7.31 [pH] Low 7.38 - 7.42 [facility] Comment on above: Performed By: #### E MRAD ####NO LOCATION NEEDED Potassium molar conc 5.1 mmol/L Normal 3.5 - 5.3 [facility] Comment on above: Performed By: #### E MRAD ####NO LOCATION NEEDED RBC Auto #/vol (Bld) 25.2 mmol/L Normal 22.0 - 26.0 [facility] Comment on above: Performed By: #### E MRAD ####NO LOCATION NEEDED SO2 94 % Normal 94 - 100 [facility] Comment on above: Performed By: #### E MRAD ####NO LOCATION NEEDED Sodium molar conc 136 mmol/L Normal 136 - 145 [facility] Comment on above: Performed By: #### E MRAD ####NO LOCATION NEEDED Anion gap 3 molar conc 12 mmol/L Normal 10 - 25 [facility] Comment on above: Performed By: #### E MRAD ####NO LOCATION NEEDED BASE EXCESS-BLOOD -2.7 mmol/L Low -2.0 - 3.0 [facility] Comment on above: Performed By: #### E MRAD ####NO LOCATION NEEDED CALCIUM,IONIZED 1.16 mmol/L Normal 1.10 - 1.33 [facility] Comment on above: Performed By: #### E MRAD ####NO LOCATION NEEDED Chloride molar conc 105 mmol/L Normal 98 - 107 [facility] Comment on above: Performed By: #### E MRAD ####NO LOCATION NEEDED FIO2 67 % Normal [facility] Comment on above: Performed By: #### E MRAD ####NO LOCATION NEEDED Glucose mass conc 198 mg/dL High 74 - 99 [facility] Comment on above: Performed By: #### E MRAD ####NO LOCATION NEEDED Hematocrit Auto Volume Fraction (Bld) 30.0 % Low 41.0 - 52.0 [facility] Comment on above: Performed By: #### E MRAD ####NO LOCATION NEEDED HGB,CALCULATED 10.2 g/dL Low 13.5 - 17.5 [facility] Comment on above: Performed By: #### E MRAD ####NO LOCATION NEEDED Lactate molar conc 3.3 mmol/L High 0.4 - 2.0 [facility] Comment on above: Performed By: #### E MRAD ####NO LOCATION NEEDED Oxygen ppres (BldA) 97 mm[Hg] High 85 - 95 [facility] Comment on above: Performed By: #### E MRAD ####NO LOCATION NEEDED PCO2 40 mmHg Normal 38 - 42 [facility] Comment on above: Performed By: #### E MRAD ####NO LOCATION NEEDED pH (Bld) 7.36 [pH] Low 7.38 - 7.42 [facility] Comment on above: Performed By: #### E MRAD ####NO LOCATION NEEDED Potassium molar conc 5.1 mmol/L Normal 3.5 - 5.3 [facility] Comment on above: Performed By: #### E MRAD ####NO LOCATION NEEDED RBC Auto #/vol (Bld) 22.6 mmol/L Normal 22.0 - 26.0 [facility] Comment on above: Performed By: #### E MRAD ####NO LOCATION NEEDED SO2 99 % Normal 94 - 100 [facility] Comment on above: Performed By: #### E MRAD ####NO LOCATION NEEDED Sodium molar conc 134 mmol/L Low 136 - 145 [facility] Comment on above: Performed By: #### E MRAD ####NO LOCATION NEEDED Anion gap 3 molar conc 13 mmol/L Normal 10 - 25 [facility] Comment on above: Performed By: #### A FPA3 ####[id number] [place] [address] BASE EXCESS-BLOOD -3.0 mmol/L Low -2.0 - 3.0 [facility] Comment on above: Performed By: #### A FPA3 ####[id number] [place] [address] CALCIUM,IONIZED 1.16 mmol/L Normal 1.10 - 1.33 [facility] Comment on above: Performed By: #### A FPA3 ####[id number] [place] [address] Chloride molar conc 104 mmol/L Normal 98 - 107 [facility] Comment on above: Performed By: #### A FPA3 ####[id number] [place] [address] FIO2 67 % Normal [facility] Comment on above: Performed By: #### A FPA3 ####[id number] [place] [address] Glucose mass conc 189 mg/dL High 74 - 99 [facility] Comment on above: Performed By: #### A FPA3 ####[id number] [place] [address] Hematocrit Auto Volume Fraction (Bld) 31.0 % Low 41.0 - 52.0 [facility] Comment on above: Performed By: #### A FPA3 ####[id number] [place] [address] HGB,CALCULATED 10.5 g/dL Low 13.5 - 17.5 [facility] Comment on above: Performed By: #### A FPA3 ####[id number] [place] [address] Lactate molar conc 3.9 mmol/L High 0.4 - 2.0 [facility] Comment on above: Performed By: #### A FPA3 ####[id number] [place] [address] Oxygen ppres (BldA) 105 mm[Hg] High 85 - 95 [facility] Comment on above: Performed By: #### A FPA3 ####[id number] [place] [address] PCO2 38 mmHg Normal 38 - 42 [facility] Comment on above: Performed By: #### A FPA3 ####[id number] [place] [address] pH (Bld) 7.37 [pH] Low 7.38 - 7.42 [facility] Comment on above: Performed By: #### A FPA3 ####[id number] [address] Potassium molar conc 5.0 mmol/L Normal 3.5 - 5.3 [facility] Comment on above: Performed By: #### A FPA3 ####[id number] [place] [address] RBC Auto #/vol (Bld) 22.0 mmol/L Normal 22.0 - 26.0 [facility] Comment on above: Performed By: #### A FPA3 ####[id number] [place] [address] SO2 99 % Normal 94 - 100 [facility] Comment on above: Performed By: #### A FPA3 ####[id number] [place] [address] Sodium molar conc 134 mmol/L Low 136 - 145 [facility] Comment on above: Performed By: #### A FPA3 ####[id number] [place] [address] Anion gap 3 molar conc 12 mmol/L Normal 10 - 25 [facility] Comment on above: Performed By: #### A FPA3 ####[id number] [place] [address] BASE EXCESS-BLOOD -4.5 mmol/L Low -2.0 - 3.0 [facility] Comment on above: Performed By: #### A FPA3 ####[id number] [place] [address] CALCIUM,IONIZED 1.28 mmol/L Normal 1.10 - 1.33 [facility] Comment on above: Performed By: #### A FPA3 ####[id number] [place] [address] Chloride molar conc 105 mmol/L Normal 98 - 107 [facility] Comment on above: Performed By: #### A FPA3 ####[id number] [place] [address] FIO2 94 % Normal [facility] Comment on above: Performed By: #### A FPA3 ####[id number] [place] [address] Glucose mass conc 208 mg/dL High 74 - 99 [facility] Comment on above: Performed By: #### A FPA3 ####[id number] [place] [address] Hematocrit Auto Volume Fraction (Bld) 30.0 % Low 41.0 - 52.0 [facility] Comment on above: Performed By: #### A FPA3 ####[id number] [place] [address] HGB,CALCULATED 10.2 g/dL Low 13.5 - 17.5 [facility] Comment on above: Performed By: #### A FPA3 ####[id number] [place] [address] Lactate molar conc 4.0 mmol/L Critically high 0.4 - 2.0 [facility] Comment on above: Performed By: #### A FPA3 ####[id number] [place] [address] Oxygen ppres (BldA) 243 mm[Hg] High 85 - 95 [facility] Comment on above: Performed By: #### A FPA3 ####[id number] [place] [address] PCO2 46 mmHg High 38 - 42 [facility] Comment on above: Performed By: #### A FPA3 ####[id number] [place] [address] pH (Bld) 7.29 [pH] Low 7.38 - 7.42 [facility] Comment on above: Performed By: #### A FPA3 ####[id number] [place] [address] Potassium molar conc 4.8 mmol/L Normal 3.5 - 5.3 [facility] Comment on above: Performed By: #### A FPA3 ####[id number] [place] [address] RBC Auto #/vol (Bld) 22.1 mmol/L Normal 22.0 - 26.0 [facility] Comment on above: Performed By: #### A FPA3 ####[id number] [place] [address] SO2 100 % Normal 94 - 100 [facility] Comment on above: Performed By: #### A FPA3 ####[id number] [place] [address] Sodium molar conc 134 mmol/L Low 136 - 145 [facility] Comment on above: Performed By: #### A FPA3 ####[id number] [place] [address] Anion gap 3 molar conc 11 mmol/L Normal 10 - 25 [facility] Comment on above: Performed By: #### A FPA3 ####[id number] [place] [address] BASE EXCESS-BLOOD -2.9 mmol/L Low -2.0 - 3.0 [facility] Comment on above: Performed By: #### A FPA3 ####[id number] [place] [address] CALCIUM,IONIZED 1.04 mmol/L Low 1.10 - 1.33 [facility] Comment on above: Performed By: #### A FPA3 ####[id number] [place] [address] Chloride molar conc 104 mmol/L Normal 98 - 107 [facility] Comment on above: Performed By: #### A FPA3 ####[id number] [place] [address] FIO2 80 % Normal [facility] Comment on above: Performed By: #### A FPA3 ####[id number] [place] [address] Glucose mass conc 251 mg/dL High 74 - 99 [facility] Comment on above: Performed By: #### A FPA3 ####[id number] [place] [address] Hematocrit Auto Volume Fraction (Bld) 29.0 % Low 41.0 - 52.0 [facility] Comment on above: Performed By: #### A FPA3 ####[id number] [place] [address] HGB,CALCULATED 9.9 g/dL Low 13.5 - 17.5 [facility] Comment on above: Performed By: #### A FPA3 ####[id number] [place] [address] Lactate molar conc 4.0 mmol/L Critically high 0.4 - 2.0 [facility] Comment on above: Performed By: #### A FPA3 ####[id number] [place] [address] Oxygen ppres (BldA) 252 mm[Hg] High 85 - 95 [facility] Comment on above: Performed By: #### A FPA3 ####[id number] [place] [address] PCO2 41 mmHg Normal 38 - 42 [facility] Comment on above: Performed By: #### A FPA3 ####[id number] [place] [address] pH (Bld) 7.35 [pH] Low 7.38 - 7.42 [facility] Comment on above: Performed By: #### A FPA3 ####[id number] [place] [address] Potassium molar conc 6.1 mmol/L Critically high 3.5 - 5.3 [facility] Comment on above: Performed By: #### A FPA3 ####[id number] [place] [address] RBC Auto #/vol (Bld) 22.6 mmol/L Normal 22.0 - 26.0 [facility] Comment on above: Performed By: #### A FPA3 ####[id number] [place] [address] SO2 99 % Normal 94 - 100 [facility] Comment on above: Performed By: #### A FPA3 ####[id number] [place] [address] Sodium molar conc 131 mmol/L Low 136 - 145 [facility] Comment on above: Performed By: #### A FPA3 ####[id number] [place] [address] Anion gap 3 molar conc 12 mmol/L Normal 10 - 25 [facility] Comment on above: Performed By: #### A FPA3 ####[id number] [place] [address] BASE EXCESS-BLOOD -2.2 mmol/L Low -2.0 - 3.0 [facility] Comment on above: Performed By: #### A FPA3 ####[id number] [place] [address] CALCIUM,IONIZED 1.04 mmol/L Low 1.10 - 1.33 [facility] Comment on above: Performed By: #### A FPA3 ####[id number] [place] [address] Chloride molar conc 103 mmol/L Normal 98 - 107 [facility] Comment on above: Performed By: #### A FPA3 ####[id number] [place] [address] FIO2 75 % Normal [facility] Comment on above: Performed By: #### A FPA3 ####[id number] [place] [address] Glucose mass conc 246 mg/dL High 74 - 99 [facility] Comment on above: Performed By: #### A FPA3 ####[id number] [place] [address] Hematocrit Auto Volume Fraction (Bld) 29.0 % Low 41.0 - 52.0 [facility] Comment on above: Performed By: #### A FPA3 ####[id number] [place] [address] HGB,CALCULATED 9.9 g/dL Low 13.5 - 17.5 [facility] Comment on above: Performed By: #### A FPA3 ####[id number] [place] [address] Lactate molar conc 3.8 mmol/L High 0.4 - 2.0 [facility] Comment on above: Performed By: #### A FPA3 ####[id number] [place] [address] Oxygen ppres (BldA) 232 mm[Hg] High 85 - 95 [facility] Comment on above: Performed By: #### A FPA3 ####[id number] [place] [address] PCO2 41 mmHg Normal 38 - 42 [facility] Comment on above: Performed By: #### A FPA3 ####[id number] [place] [address] pH (Bld) 7.36 [pH] Low 7.38 - 7.42 [facility] Comment on above: Performed By: #### A FPA3 ####[id number] [place] [address] Potassium molar conc 6.5 mmol/L Critically high 3.5 - 5.3 [facility] Comment on above: Performed By: #### A FPA3 ####[id number] [place] [address] RBC Auto #/vol (Bld) 23.2 mmol/L Normal 22.0 - 26.0 [facility] Comment on above: Performed By: #### A FPA3 ####[id number] [place] [address] SO2 100 % Normal 94 - 100 [facility] Comment on above: Performed By: #### A FPA3 ####[id number] [place] [address] Sodium molar conc 132 mmol/L Low 136 - 145 [facility] Comment on above: Performed By: #### A FPA3 ####[id number] [place] [address] Anion gap 3 molar conc 11 mmol/L Normal 10 - 25 [facility] Comment on above: Performed By: #### A FPA3 ####[id number] [place] [address] BASE EXCESS-BLOOD -1.8 mmol/L Normal -2.0 - 3.0 [facility] Comment on above: Performed By: #### A FPA3 ####[id number] [place] [address] CALCIUM,IONIZED 1.03 mmol/L Low 1.10 - 1.33 [facility] Comment on above: Performed By: #### A FPA3 ####[id number] [place] [address] Chloride molar conc 103 mmol/L Normal 98 - 107 [facility] Comment on above: Performed By: #### A FPA3 ####[id number] [place] [address] FIO2 75 % Normal [facility] Comment on above: Performed By: #### A FPA3 ####[id number] [place] [address] Glucose mass conc 251 mg/dL High 74 - 99 [facility] Comment on above: Performed By: #### A FPA3 ####[id number] [place] [address] Hematocrit Auto Volume Fraction (Bld) 28.0 % Low 41.0 - 52.0 [facility] Comment on above: Performed By: #### A FPA3 ####[id number] [place] [address] HGB,CALCULATED 9.5 g/dL Low 13.5 - 17.5 [facility] Comment on above: Performed By: #### A FPA3 ####[id number] [place] [address] Lactate molar conc 3.8 mmol/L High 0.4 - 2.0 [facility] Comment on above: Performed By: #### A FPA3 ####[id number] [place] [address] Oxygen ppres (BldA) 312 mm[Hg] High 85 - 95 [facility] Comment on above: Performed By: #### A FPA3 ####[id number] [place] [address] PCO2 46 mmHg High 38 - 42 [facility] Comment on above: Performed By: #### A FPA3 ####[id number] [place] [address] pH (Bld) 7.33 [pH] Low 7.38 - 7.42 [facility] Comment on above: Performed By: #### A FPA3 ####[id number] [place] [address] Potassium molar conc 6.5 mmol/L Critically high 3.5 - 5.3 [facility] Comment on above: Performed By: #### A FPA3 ####[id number] [place] [address] RBC Auto #/vol (Bld) 24.3 mmol/L Normal 22.0 - 26.0 [facility] Comment on above: Performed By: #### A FPA3 ####[id number] [place] [address] SO2 100 % Normal 94 - 100 [facility] Comment on above: Performed By: #### A FPA3 ####[id number] [place] [address] Sodium molar conc 132 mmol/L Low 136 - 145 [facility] Comment on above: Performed By: #### A FPA3 ####[id number] [place] [address] Anion gap 3 molar conc 12 mmol/L Normal 10 - 25 [facility] Comment on above: Performed By: #### A FPA3 ####[id number] [place] [address] BASE EXCESS-BLOOD -0.1 mmol/L Normal -2.0 - 3.0 [facility] Comment on above: Performed By: #### A FPA3 ####[id number] [place] [address] CALCIUM,IONIZED 0.87 mmol/L Low 1.10 - 1.33 [facility] Comment on above: Performed By: #### A FPA3 ####[id number] [place] [address] Chloride molar conc 101 mmol/L Normal 98 - 107 [facility] Comment on above: Performed By: #### A FPA3 ####[id number] [place] [address] FIO2 80 % Normal [facility] Comment on above: Performed By: #### A FPA3 ####[id number] [place] [address] Glucose mass conc 230 mg/dL High 74 - 99 [facility] Comment on above: Performed By: #### A FPA3 ####[id number] [place] [address] Hematocrit Auto Volume Fraction (Bld) 27.0 % Low 41.0 - 52.0 [facility] Comment on above: Performed By: #### A FPA3 ####[id number] [place] [address] HGB,CALCULATED 9.2 g/dL Low 13.5 - 17.5 [facility] Comment on above: Performed By: #### A FPA3 ####[id number] [place] [address] Lactate molar conc 3.1 mmol/L High 0.4 - 2.0 [facility] Comment on above: Performed By: #### A FPA3 ####[id number] [place] [address] Oxygen ppres (BldA) 392 mm[Hg] High 85 - 95 [facility] Comment on above: Performed By: #### A FPA3 ####[id number] [place] [address] PCO2 47 mmHg High 38 - 42 [facility] Comment on above: Performed By: #### A FPA3 ####[id number] [place] [address] pH (Bld) 7.35 [pH] Low 7.38 - 7.42 [facility] Comment on above: Performed By: #### A FPA3 ####[id number] [place] [address] Potassium molar conc 5.1 mmol/L Normal 3.5 - 5.3 [facility] Comment on above: Performed By: #### A FPA3 ####[id number] [place] [address] RBC Auto #/vol (Bld) 25.9 mmol/L Normal 22.0 - 26.0 [facility] Comment on above: Performed By: #### A FPA3 ####[id number] [place] [address] SO2 99 % Normal 94 - 100 [facility] Comment on above: Performed By: #### A FPA3 ####[id number] [place] [address] Sodium molar conc 134 mmol/L Low 136 - 145 [facility] Comment on above: Performed By: #### A FPA3 ####[id number] [place] [address] Anion gap 3 molar conc 14 mmol/L Normal 10 - 25 [facility] Comment on above: Performed By: #### A FPA3 ####[id number] [place] [address] BASE EXCESS-BLOOD -3.6 mmol/L Low -2.0 - 3.0 [facility] Comment on above: Performed By: #### A FPA3 ####[id number] [place] [address] CALCIUM,IONIZED 1.10 mmol/L Normal 1.10 - 1.33 [facility] Comment on above: Performed By: #### A FPA3 ####[id number] [place] [address] Chloride molar conc 100 mmol/L Normal 98 - 107 [facility] Comment on above: Performed By: #### A FPA3 ####[id number] [place] [address] FIO2 64 % Normal [facility] Comment on above: Performed By: #### A FPA3 ####[id number] [place] [address] Glucose mass conc 268 mg/dL High 74 - 99 [facility] Comment on above: Performed By: #### A FPA3 ####[id number] [place] [address] Hematocrit Auto Volume Fraction (Bld) 36.0 % Low 41.0 - 52.0 [facility] Comment on above: Performed By: #### A FPA3 ####[id number] [place] [address] HGB,CALCULATED 12.2 g/dL Low 13.5 - 17.5 [facility] Comment on above: Performed By: #### A FPA3 ####[id number] [place] [address] Lactate molar conc 3.1 mmol/L High 0.4 - 2.0 [facility] Comment on above: Performed By: #### A FPA3 ####[id number] [place] [address] Oxygen ppres (BldA) 111 mm[Hg] High 85 - 95 [facility] Comment on above: Performed By: #### A FPA3 ####[id number] [place] [address] PCO2 47 mmHg High 38 - 42 [facility] Comment on above: Performed By: #### A FPA3 ####[id number] [place] [address] pH (Bld) 7.30 [pH] Low 7.38 - 7.42 [facility] Comment on above: Performed By: #### A FPA3 ####[id number] [place] [address] Potassium molar conc 5.3 mmol/L Normal 3.5 - 5.3 [facility] Comment on above: Performed By: #### A FPA3 ####[id number] [place] [address] RBC Auto #/vol (Bld) 23.1 mmol/L Normal 22.0 - 26.0 [facility] Comment on above: Performed By: #### A FPA3 ####[id number] [place] [address] SO2 99 % Normal 94 - 100 [facility] Comment on above: Performed By: #### A FPA3 ####[id number] [place] [address] Sodium molar conc 132 mmol/L Low 136 - 145 [facility] Comment on above: Performed By: #### A FPA3 ####[id number] [place] [address] Anion gap 3 molar conc 13 mmol/L Normal 10 - 25 [facility] Comment on above: Performed By: #### A FPA3 ####[id number] [place] [address] BASE EXCESS-BLOOD -3.2 mmol/L Low -2.0 - 3.0 [facility] Comment on above: Performed By: #### A FPA3 ####[id number] [place] [address] CALCIUM,IONIZED 1.20 mmol/L Normal 1.10 - 1.33 [facility] Comment on above: Performed By: #### A FPA3 ####[id number] [place] [address] Chloride molar conc 102 mmol/L Normal 98 - 107 [facility] Comment on above: Performed By: #### A FPA3 ####[id number] [place] [address] FIO2 100 % Normal [facility] Comment on above: Performed By: #### A FPA3 ####[id number] [place] [address] Glucose mass conc 238 mg/dL High 74 - 99 [facility] Comment on above: Performed By: #### A FPA3 ####[id number] [place] [address] Hematocrit Auto Volume Fraction (Bld) 40.0 % Low 41.0 - 52.0 [facility] Comment on above: Performed By: #### A FPA3 ####[id number] [place] [address] HGB,CALCULATED 13.6 g/dL Normal 13.5 - 17.5 [facility] Comment on above: Performed By: #### A FPA3 ####[id number] [place] [address] Lactate molar conc 2.3 mmol/L High 0.4 - 2.0 [facility] Comment on above: Performed By: #### A FPA3 ####[id number] [place] [address] Oxygen ppres (BldA) 383 mm[Hg] High 85 - 95 [facility] Comment on above: Performed By: #### A FPA3 ####[id number] [place] [address] PCO2 48 mmHg High 38 - 42 [facility] Comment on above: Performed By: #### A FPA3 ####[id number] [place] [address] pH (Bld) 7.30 [pH] Low 7.38 - 7.42 [facility] Comment on above: Performed By: #### A FPA3 ####[id number] [place] [address] Potassium molar conc 4.6 mmol/L Normal 3.5 - 5.3 [facility] Comment on above: Performed By: #### A FPA3 ####[id number] [place] [address] RBC Auto #/vol (Bld) 23.6 mmol/L Normal 22.0 - 26.0 [facility] Comment on above: Performed By: #### A FPA3 ####[id number] [place] [address] SO2 99 % Normal 94 - 100 [facility] Comment on above: Performed By: #### A FPA3 ####[id number] [place] [address] Sodium molar conc 134 mmol/L Low 136 - 145 [facility] Comment on above: Performed By: #### A FPA3 ####[id number] [place] [address] CALCIUM, IONIZEDon 8 CALCIUM,IONIZED 1.24 mmol/L Normal 1.10 - 1.33 [facility] Comment on above: Result Comment: [...] (RBC) 12.8 % Normal 11.5 - 14.5 [facility] Comment on above: Performed By: #### E MRAD ####NO LOCATION NEEDED Hematocrit Auto Volume Fraction (Bld) 37.9 % Low 41.0 - 52.0 [facility] Comment on above: Performed By: #### E MRAD ####NO LOCATION NEEDED Hemoglobin mass conc (Bld) 12.7 g/dL Low 13.5 - 17.5 [facility] Comment on above: Performed By: #### E MRAD ####NO LOCATION NEEDED MCHC Auto mass conc (RBC) 33.5 g/dL Normal 32.0 - 36.0 [facility] Comment on above: Performed By: #### E MRAD ####NO LOCATION NEEDED MCV Auto Entitic volume (RBC) 92 fL Normal 80 - 100 [facility] Comment on above: Performed By: #### E MRAD ####NO LOCATION NEEDED Nucleated RBC/100 WBC Ratio (Bld) 0.0 /100 WBC Normal 0.0-0.0 [facility] Comment on above: Performed By: #### E MRAD ####NO LOCATION NEEDED Platelets Auto #/vol (Bld) 201 10*3/uL Normal 150 - 450 [facility] Comment on above: Performed By: #### E MRAD ####NO LOCATION NEEDED RBC Auto #/vol (Bld) 4.12 x10E12/L Low 4.50 - 5.90 [facility] Comment on above: Performed By: #### E MRAD ####NO LOCATION NEEDED WBC Auto #/vol (Bld) 19.7 10*3/uL High 4.4 - 11.3 [facility] Comment on above: Performed By: #### E MRAD ####NO LOCATION NEEDED Erythrocyte distribution width Auto Ratio (RBC) 12.7 % Normal 11.5 - 14.5 [facility] Comment on above: Performed By: #### C BC ####[id number] [place] [address] Hematocrit Auto Volume Fraction (Bld) 33.7 % Low 41.0 - 52.0 [facility] Comment on above: Performed By: #### C BC ####[id number] [place] [address] Hemoglobin mass conc (Bld) 11.5 g/dL Low 13.5 - 17.5 [facility] Comment on above: Performed By: #### C BC ####[id number] [place] [address] MCHC Auto mass conc (RBC) 34.1 g/dL Normal 32.0 - 36.0 [facility] Comment on above: Performed By: #### C BC ####[id number] [place] [address] MCV Auto Entitic volume (RBC) 92 fL Normal 80 - 100 [facility] Comment on above: Performed By: #### C BC ####[id number] [place] [address] Nucleated RBC/100 WBC Ratio (Bld) 0.0 /100 WBC Normal 0.0-0.0 [facility] Comment on above: Performed By: #### C BC ####[id number] [place] [address] Platelets Auto #/vol (Bld) 167 10*3/uL Normal 150 - 450 [facility] Comment on above: Performed By: #### C BC ####[id number] [place] [address] RBC Auto #/vol (Bld) 3.66 x10E12/L Low 4.50 - 5.90 [facility] Comment on above: Performed By: #### C BC ####[id number] [place] [address] WBC Auto #/vol (Bld) 14.7 10*3/uL High 4.4 - 11.3 [facility] Comment on above: Performed By: #### C BC ####[id number] [place] [address] Erythrocyte distribution width Auto Ratio (RBC) 12.7 % Normal 11.5 - 14.5 [facility] Comment on above: Performed By: #### C BC ####[id number] [place] [address] Hematocrit Auto Volume Fraction (Bld) 40.5 % Low 41.0 - 52.0 [facility] Comment on above: Performed By: #### C BC ####[id number] [place] [address] Hemoglobin mass conc (Bld) 13.9 g/dL Normal 13.5 - 17.5 [facility] Comment on above: Performed By: #### C BC ####[id number] [place] [address] MCHC Auto mass conc (RBC) 34.3 g/dL Normal 32.0 - 36.0 [facility] Comment on above: Performed By: #### C BC ####[id number] [place] [address] MCV Auto Entitic volume (RBC) 91 fL Normal 80 - 100 [facility] Comment on above: Performed By: #### C BC ####[id number] [place] [address] Nucleated RBC/100 WBC Ratio (Bld) 0.0 /100 WBC Normal 0.0-0.0 [facility] Comment on above: Performed By: #### C BC ####[id number] [place] [address] Platelets Auto #/vol (Bld) 220 10*3/uL Normal 150 - 450 [facility] Comment on above: Performed By: #### C BC ####[id number] [place] [address] RBC Auto #/vol (Bld) 4.44 x10E12/L Low 4.50 - 5.90 [facility] Comment on above: Performed By: #### C BC ####[id number] [place] [address] WBC Auto #/vol (Bld) 8.6 10*3/uL Normal 4.4 - 11.3 [facility] Comment on above: Performed By: #### C BC ####[id number] [place] [address] COAGULATION SCREENon 03-31-2 018 aPTT Coag time (Bld) 27 s Low 28 - 38 [facility] Comment on above: Result Comment: Note new reference range as of 03/10/2018. THE APTT IS NO LONGER USED FOR MONITORING UNFRACTIONATED HEPARIN THERAPY. FOR MONITORING HEPARIN THERAPY, USE THE HEPARIN ASSAY. Performed By: #### E MRAD ####NO LOCATION NEEDED INR Coag RelTime (PPP) 1.2 {INR} High 0.9 - 1.1 [facility] Comment on above: Performed By: #### E MRAD ####NO LOCATION NEEDED Prothrombin time (PT) Coag time (PPP) 13.8 s High 9.7 - 12.7 [facility] Comment on above: Result Comment: Note new reference range as of 03/10/2018. Performed By: #### E MRAD ####NO LOCATION NEEDED aPTT Coag time (Bld) 27 s Low 28 - 38 [facility] Comment on above: Result Comment: Note new reference range as of 03/10/2018. THE APTT IS NO LONGER USED FOR MONITORING UNFRACTIONATED HEPARIN THERAPY. FOR MONITORING HEPARIN THERAPY, USE THE HEPARIN ASSAY. Performed By: #### C OAGS ####[id number] [place] [address] INR Coag RelTime (PPP) 1.4 {INR} High 0.9 - 1.1 [facility] Comment on above: Performed By: #### C OAGS ####[id number] [place] [address] Prothrombin time (PT) Coag time (PPP) 16.0 s High 9.7 - 12.7 [facility] Comment on above: Result Comment: Note new reference range as of 03/10/2018. Performed By: #### C OAGS ####[id number] [place] [address] aPTT Coag time (Bld) 66 s High 28 - 38 [facility] Comment on above: Result Comment: Note new reference range as of 03/10/2018. THE APTT IS NO LONGER USED FOR MONITORING UNFRACTIONATED HEPARIN THERAPY. FOR MONITORING HEPARIN THERAPY, USE THE HEPARIN ASSAY. Performed By: #### C OAGS ####[id number] [place] [address] INR Coag RelTime (PPP) 1.2 {INR} High 0.9 - 1.1 [facility] Comment on above: Performed By: #### C OAGS ####[id number] [place] [address] Prothrombin time (PT) Coag time (PPP) 13.4 s High 9.7 - 12.7 [facility] Comment on above: Result Comment: Note new reference range as of 03/10/2018. Performed By: #### C OAGS ####[id number] [place] [address] COOX PANEL, ARTERIALon 03-31 DEOXY HGB 1.4 % Normal 0.0 - 5.0 [facility] Comment on above: Performed By: #### E MRAD ####NO LOCATION NEEDED Hemoglobin mass conc (Bld) 11.5 g/dL Low 13.5 - 17.5 [facility] Comment on above: Performed By: #### E MRAD ####NO LOCATION NEEDED Hemoglobin mass conc (Bld) 2.1 % Abnormal [facility] Comment on above: Result Comment: REF VALUESNONSMOKERS 0.5-1.5%SMOKERS 0.5-10.0% Performed By: #### E MRAD ####NO LOCATION NEEDED MET HGB 1.0 % Normal 0.0 - 1.5 [facility] Comment on above: Performed By: #### E MRAD ####NO LOCATION NEEDED OXY HGB 95.5 % Normal 94.0 - 98.0 [facility] Comment on above: Performed By: #### E MRAD ####NO LOCATION NEEDED DEOXY HGB 1.2 % Normal 0.0 - 5.0 [facility] Comment on above: Performed By: #### C OOXA ####[id number] [place] [address] Hemoglobin mass conc (Bld) 12.0 g/dL Low 13.5 - 17.5 [facility] Comment on above: Performed By: #### C OOXA ####[id number] [place] [address] Hemoglobin mass conc (Bld) 2.1 % Abnormal [facility] Comment on above: Result Comment: REF VALUESNONSMOKERS 0.5-1.5%SMOKERS 0.5-10.0% Performed By: #### C OOXA ####[id number] [place] [address] MET HGB 1.3 % Normal 0.0 - 1.5 [facility] Comment on above: Performed By: #### C OOXA ####[id number] [place] [address] OXY HGB 95.4 % Normal 94.0 - 98.0 [facility] Comment on above: Performed By: #### C OOXA ####[id number] [place] [address] DEOXY HGB 0.3 % Normal 0.0 - 5.0 [facility] Comment on above: Performed By: #### C OOXA ####[id number] [place] [address] Hemoglobin mass conc (Bld) 11.7 g/dL Low 13.5 - 17.5 [facility] Comment on above: Performed By: #### C OOXA ####[id number] [place] [address] Hemoglobin mass conc (Bld) 2.0 % Abnormal [facility] Comment on above: Result Comment: REF VALUESNONSMOKERS 0.5-1.5%SMOKERS 0.5-10.0% Performed By: #### C OOXA ####[id number] [place] [address] MET HGB 1.1 % Normal 0.0 - 1.5 [facility] Comment on above: Performed By: #### C OOXA ####[id number] [place] [address] OXY HGB 96.5 % Normal 94.0 - 98.0 [facility] Comment on above: Performed By: #### C OOXA ####[id number] [place] [address] DEOXY HGB 0.6 % Normal 0.0 - 5.0 [facility] Comment on above: Performed By: #### C OOXA ####[id number] [place] [address] Hemoglobin mass conc (Bld) 1.8 % Abnormal [facility] Comment on above: Result Comment: REF VALUESNONSMOKERS 0.5-1.5%SMOKERS 0.5-10.0% Performed By: #### C OOXA ####[id number] [place] [address] Hemoglobin mass conc (Bld) 11.4 g/dL Low 13.5 - 17.5 [facility] Comment on above: Performed By: #### C OOXA ####[id number] [place] [address] MET HGB 1.0 % Normal 0.0 - 1.5 [facility] Comment on above: Performed By: #### C OOXA ####[id number] [place] [address] OXY HGB 96.6 % Normal 94.0 - 98.0 [facility] Comment on above: Performed By: #### C OOXA ####[id number] [place] [address] DEOXY HGB 0.3 % Normal 0.0 - 5.0 [facility] Comment on above: Performed By: #### C OOXA ####[id number] [place] [address] Hemoglobin mass conc (Bld) 2.0 % Abnormal [facility] Comment on above: Result Comment: REF VALUESNONSMOKERS 0.5-1.5%SMOKERS 0.5-10.0% Performed By: #### C OOXA ####[id number] [place] [address] Hemoglobin mass conc (Bld) 11.3 g/dL Low 13.5 - 17.5 [facility] Comment on above: Performed By: #### C OOXA ####[id number] [place] [address] MET HGB 0.7 % Normal 0.0 - 1.5 [facility] Comment on above: Performed By: #### C OOXA ####[id number] [place] [address] OXY HGB 97.0 % Normal 94.0 - 98.0 [facility] Comment on above: Performed By: #### C OOXA ####[id number] [place] [address] DEOXY HGB -0.1 % Low 0.0 - 5.0 [facility] Comment on above: Performed By: #### C OOXA ####[id number] [place] [address] Hemoglobin mass conc (Bld) 2.2 % Abnormal [facility] Comment on above: Result Comment: REF VALUESNONSMOKERS 0.5-1.5%SMOKERS 0.5-10.0% Performed By: #### C OOXA ####[id number] [place] [address] Hemoglobin mass conc (Bld) 11.3 g/dL Low 13.5 - 17.5 [facility] Comment on above: Performed By: #### C OOXA ####[id number] [place] [address] MET HGB 0.8 % Normal 0.0 - 1.5 [facility] Comment on above: Performed By: #### C OOXA ####[id number] [place] [address] OXY HGB 97.1 % Normal 94.0 - 98.0 [facility] Comment on above: Performed By: #### C OOXA ####[id number] [place] [address] DEOXY HGB 1.0 % Normal 0.0 - 5.0 [facility] Comment on above: Performed By: #### C OOXA ####[id number] [place] [address] Hemoglobin mass conc (Bld) 1.9 % Abnormal [facility] Comment on above: Result Comment: REF VALUESNONSMOKERS 0.5-1.5%SMOKERS 0.5-10.0% Performed By: #### C OOXA ####[id number] [place] [address] Hemoglobin mass conc (Bld) 10.9 g/dL Low 13.5 - 17.5 [facility] Comment on above: Performed By: #### C OOXA ####[id number] [place] [address] MET HGB 1.7 % High 0.0 - 1.5 [facility] Comment on above: Performed By: #### C OOXA ####[id number] [place] [address] OXY HGB 95.4 % Normal 94.0 - 98.0 [facility] Comment on above: Performed By: #### C OOXA ####[id number] [place] [address] DEOXY HGB 1.5 % Normal 0.0 - 5.0 [facility] Comment on above: Performed By: #### C OOXA ####[id number] [place] [address] Hemoglobin mass conc (Bld) 13.2 g/dL Low 13.5 - 17.5 [facility] Comment on above: Performed By: #### C OOXA ####[id number] [place] [address] Hemoglobin mass conc (Bld) 1.6 % Abnormal [facility] Comment on above: Result Comment: REF VALUESNONSMOKERS 0.5-1.5%SMOKERS 0.5-10.0% Performed By: #### C OOXA ####[id number] [place] [address] MET HGB 0.8 % Normal 0.0 - 1.5 [facility] Comment on above: Performed By: #### C OOXA ####[id number] [place] [address] OXY HGB 96.2 % Normal 94.0 - 98.0 [facility] Comment on above: Performed By: #### C OOXA ####[id number] [place] [address] DEOXY HGB 0.7 % Normal 0.0 - 5.0 [facility] Comment on above: Performed By: #### C OOXA ####[id number] [place] [address] Hemoglobin mass conc (Bld) 1.5 % Normal [facility] Comment on above: Result Comment: REF VALUESNONSMOKERS 0.5-1.5%SMOKERS 0.5-10.0% Performed By: #### C OOXA ####[id number] [place] [address] Hemoglobin mass conc (Bld) 14.7 g/dL Normal 13.5 - 17.5 [facility] Comment on above: Performed By: #### C OOXA ####[id number] [place] [address] MET HGB 0.9 % Normal 0.0 - 1.5 [facility] Comment on above: Performed By: #### C OOXA ####[id number] [place] [address] OXY HGB 96.9 % Normal 94.0 - 98.0 [facility] Comment on above: Performed By: #### C OOXA ####[id number] [place] [address] CORTISOL, A.M.on 03-31-2018 CORTISOL, A.M. 24.7 ug/dL High 5.0 - 20.0 [facility] Comment on above: Performed By: #### C ARABELLA ####[id number] [place] [address] CORTISOL, P.M.on 03-31-2018 CORTISOL, P.M. 17.4 ug/dL High 2.5 - 10.0 [facility] Comment on above: Performed By: #### E MRAD ####NO LOCATION NEEDED CORTISOL, P.M. 31.3 ug/dL High 2.5 - 10.0 [facility] Comment on above: Performed By: #### E MRAD ####NO LOCATION NEEDED CORTISOL, P.M. 44.9 ug/dL High 2.5 - 10.0 [facility] Comment on above: Performed By: [...] continued as q6hrs. Objective Data: Objective Information:T PKIHDeF7Islci35.94140471/8894% Date/Time03/31 4: 4: 4: 4: 4:07Range(35.8C - [...] Bolus) Injectable: 4000 unit(s) IntraVenous Push Every 7Rznah3. Hydrocortisone Na Succinate Injectable: 25 mg IntraVenous Push Every 3Khzbl23. Insulin Glargine (Lantus) Injectable: 20 unit(s) SubCutaneous Every 21Eqpdk99. Insulin Lispro (HumaLOG) Injectable: 12 unit(s) SubCutaneous 3 Times aDay Before Meals12. Insulin Lispro Mild Corrective Scale: unit(s) SubCutaneous 3 Times a DayBefore Meals13. Levothyroxine: 150 microgram(s) Oral Daily14. Mupirocin 2%: 0.5 application(s) Each Nostril 2 Times a Day15. Pantoprazole: 40 mg Oral Daily16. rOPINIRole: 6 mg Oral 17. Sodium Chloride 0.65% Nasal [place]: 2 spray(s) Each Nostril 2 Times aDay PRN Medications -- 1. Dextrose 50% in Water Injectable: 25 gram(s) IntraVenous Push Every 21Bwrrchs7. Glucagon Injectable: 1 mg IntraMuscular Every 15 Minutes3. Nitroglycerin SubLingual: 0.4 mg SubLingual Every 5 Minutes4. Polyethylene Glycol: 17 gram(s) Oral Daily Currently Suspended Medications -- 1. Hydrocortisone: 10 mg Oral 2. Hydrocortisone: 5 mg Oral 3. Hydrocortisone: 2.5 mg Oral Recent Lab Results: Results: I have reviewed these laboratory results: Glucose_POCT Trending View [id number]-[id number] 21:35:00 30-Mar-2018 17:24:00 30-Mar-2018 12:06:00 30-Mar-2018 07:46:00 29-Mar-2018 20:49:00Glucose-UQYV567 H 216 H 205 H 153 H 244 H Renal Function Panel Trending View [id number]-[id number] 19:18:00 29-Mar-2018 19:58:00Glucose, Anwyo273 H 237 LCI443 132 LK4.4 4.6HC032 99Bicarbonate, Serum23 19 LAnion Gap, Serum16 24AYV89 H 24 HCREAT1.68 H 1.32 HGFR-Non Jhukjdlx58 A 54 AGFR- Hylketnf62 A 65Calcium, Serum9.5 9.3Phosphorus, Serum4.5 4.2ALB4.1 3.9 Assessment and Plan:Assessment: Mr. Elkins is a 67 yo WM with no known history of CAD, who has a past medicalhistory of HTN, HLD, T2DM, Brigida's disease, hypothyroidism, COPD, AKASH onCPAP, prostate ca s/p prostatectomy in 2011, and psoriasis [facility] consulted fr evaluation of Bunn disease and treatment periop Patient was on supra-therapeutic dose of HCT 20-0-20 , fludrocortisone 0.1 ,mgdailyPatient has uncontrolled HTN and uncontrolled BSMost likely tomorrow (03/23) IVC filter placement 1. Bunn's Disease-- Fludrocortisone 0.05 mg 4 times weekly ( and friday)-- 03/31:CABG Today First case, patient given HCT 30 mg by mouth once at 5 am , Cortisollevel checked one hour later, HCt 25 mg IV q6hrs to be started as of NOW (6 am)and continued as g0rxb--Nfdwj Cortisol level q2 hrs after pm dose of HCT IV--Will follow 2. T2DM-- Patient received lantus 20 units instead of 30 yesterday in the evening--Pt having CABG today, to eb on insulin drip as per CICU protocol post op--Will follow Please page with questions [phone] Patient seen and examined, plan discussed with [...] patient (as noted in the above attestation) [id number] Electronic Signatures:Starr Quevedo) (Signed 02-Apr-2018 10:01)Authored: Signature/Cosignature/Attestat ionCo-Signer: Service, Subjective Data, Objective Data, Assessment and Plan,Signature/Cosignature/Att estationHasmukh Stephenson (Resident)) (Signed 31-Mar-2018 06:23)Authored: Service, Subjective Data, Objective Data, Assessment and Plan,Signature/Cosignature/Att estation Last Updated: 02-Apr-2018 10:01 by Starr Quevedo) Normal [facility] EMR ADDONon 03-31-2018 ADDON CONFIRMATION REQUEST REC'D Normal [facility] Comment on above: Performed By: #### E MRAD ####NO LOCATION NEEDED FIBRINOGENon 03-31-2018 FIBRINOGEN Canceled Normal [facility] Comment on above: Order Comment: TEST FIBRINOGEN WAS CANCELLED, 03/31/2018 14:47 ?Cancel Reason: Discontinued. Performed By: #### E MRAD ####NO LOCATION NEEDED FIBRINOGEN 244 mg/dL Normal 200 - 400 [facility] Comment on above: Performed By: #### F IB ####[id number] [place] [address] FIBRINOGEN 356 mg/dL Normal 200 - 400 [facility] Comment on above: Performed By: #### F IB ####[id number] [place] [address] GLUCOSE-POCTon 03-31-2018 Glucose mass conc 149 mg/dL High 74 - 99 [facility] Comment on above: Performed By: #### E MRAD ####NO LOCATION NEEDED Glucose mass conc 167 mg/dL High 74 - 99 [facility] Comment on above: Performed By: #### E MRAD ####NO LOCATION NEEDED Glucose mass conc 172 mg/dL High 74 - 99 [facility] Comment on above: Performed By: #### E MRAD ####NO LOCATION NEEDED Glucose mass conc 186 mg/dL High - [address] [place] [address] Comment on above: Performed By: #### E MRAD ####NO LOCATION NEEDED Glucose mass conc 191 mg/dL High - 99 [facility] Comment on above: Performed By: #### E MRAD ####NO LOCATION NEEDED Glucose mass conc 210 mg/dL High - 99 [facility] Comment on above: Performed By: #### G BECKY ####[id number] [place] [address] History and Physical - Christopher Vitale 03-31-2018 History and Physical - Critical Care Service:Critical Care Service: ServiceSU Purple History of Present Illness:HPI:HPI: 67 yo M with HTN, DLD, T2DM, Addisson's, GERD, prostate ca s/pprostatectomy in 2011, hypothyroidism, psoriasis transferred to medicine at [facility] from [facility] on 03/18 for CABG eval Patient reports 2 month h/o intermittent exertional left sided chest painlasting less than 30 min, relieved with rest, with no other associatedsymptoms. He woke up 03/16 at 1AM with chest pressure associated with dyspnea,and his took him to [facility] where he was diagnosed with a PE,started on heparin gtt, then transferred to [facility]. There, hewas found to have a [...] 3 weeks ago.Prostatectomy 2011 FAMILY HISTORY [place], [place], CHF, HTN, DM and DLD SOCIAL HISTORY quit smoking 20 years ago. 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 PRIOR IMAGINGCTA at [place]:Pulmonary emboli involving the bilateral lobar segmental, and severalsubsegmental branches (RUL, RML, RLL, FIDEL, LLL). LHC at [facility]:LAD prox: 30%LAD mid: 95%Diag 3rd: 99%RCA: 85 %PLV: 50%Circ: 95% TTE at [facility]:EF 60-65%Mild LA dialtionNo valvular abnormalities Comorbidities: Comorbid [...] intubated, sedated Objective:Objective Information: Objective Information T FUYMMgF2Ucmbg95.104990556/5994 %Date/Time03/31 4: 15: 4: 14: 15:00Range(35.8C - 36.4C ) (80 - 102 ) (18 - 20 ) (110 - 139 )/ (59 - 88 )(94% - 100% ) Vent Tsasxalc03/13 14:61ZjneoOCJ30/13 14:11Rate Set (breaths/min)14105/31 14:11Tidal Volume Set (mL)33972/13 14:11PEEP (cm H2O)8105/31 14:11FiO2 (%)50 Vent Data03/31 14:11Ventilator IdentificationXL 7303/31 14:11Start Qslp29-Ucr-795045/13 14:11Start Time14: 14:11Ventilator Days and Hours0 Hours Non-Clfmtsxf49/13 14:11High Inspiratory Pressure (cm H2O)45 Physical Exam: [...] Succinate Injectable: 25 mg IntraVenous Push Every 7Fjqcv1. Lidocaine 5% TransDermal: 1 patch TransDermal Every 24 Hours5. Pantoprazole Injectable: 40 mg IntraVenous Push Every 24 Hours PRN Medications -- 1. Bisacodyl Rectal: 10 mg Rectal Daily2. Calcium Chloride IVPB: 0.5 gram(s) IntraVenous Piggyback Every 8 Hours3. Calcium Chloride IVPB: 1 gram(s) IntraVenous Piggyback Every 8 Hours4. Dextrose 50% in Water Injectable: 25 gram(s) IntraVenous Push Every 09Vtahwom9. Glucagon Injectable: 1 mg IntraMuscular Every 15 [...] 356 Recent Arterial Blood Gas Results 03/31/2018 07:45uO0835tD8.83jTP613QO459Yo se Excess-3.7Dykawxbvscr16.6 Assessment and Plan:Other:Assessment: Assessment:67 year old with a history of CAD, HTN, HLD, DM2, Gerd, Brigida's, andhypothyroid presents from the OR s/p CABG [...] per SICU protocol ENDO: History of diabetes, Bunn's and hypothyroid -->- Consult Endocrine for management of Brigida's- Continue hydrocortisone- Maintain BG <180, insulin per [...] attending, Dr. Barnett: Continue SICU care. Kylie, PAPER SLITTER#[id number] Code Status: Code StatusFull Code Signatures/Attestation/Certifi cation:Critical [...] cationCo-Signer: Objective, Assessment and Plan,Signatures/Attestation/Ce Margot Walters (INSTRUCTOR [employer]-PAPER SLITTER) (Signed 31-Mar-2018 16:14)Authored: Service, History of Present Illness, Comorbidities, Allergies,Medications Prior to Admission, Review of Systems, Objective, Assessment andPlan, Signatures/Attestation/Certifi cation Last Updated: 01-Apr-2018 08:00 by Abelino Klein) Normal [facility] MAGNESIUMon 03-31-2018 Magnesium mass conc 2.67 mg/dL High 1.60 - 2.40 [facility] Comment on above: Performed By: #### E MRAD ####NO LOCATION NEEDED MV FULL PANELon 03-31-2018 Anion gap 3 molar conc 12 mmol/L Normal 10 - 25 [facility] Comment on above: Performed By: #### E MRAD ####NO LOCATION NEEDED BASE EXCESS-BLOOD -1.2 mmol/L Normal [facility] Comment on above: Performed By: #### E MRAD ####NO LOCATION NEEDED CALCIUM,IONIZED 1.19 mmol/L Normal 1.10 - 1.33 [facility] Comment on above: Performed By: #### E MRAD ####NO LOCATION NEEDED Chloride molar conc 103 mmol/L Normal 98 - 107 [facility] Comment on above: Performed By: #### E MRAD ####NO LOCATION NEEDED Glucose mass conc 180 mg/dL High 74 - 99 [facility] Comment on above: Performed By: #### E MRAD ####NO LOCATION NEEDED Hematocrit Auto Volume Fraction (Bld) 34.0 % Low 41.0 - 52.0 [facility] Comment on above: Performed By: #### E MRAD ####NO LOCATION NEEDED HGB,CALCULATED 11.6 g/dL Low 13.5 - 17.5 [facility] Comment on above: Performed By: #### E MRAD ####NO LOCATION NEEDED Lactate molar conc 2.7 mmol/L High 0.4 - 2.0 [facility] Comment on above: Performed By: #### E MRAD ####NO LOCATION NEEDED Oxygen ppres (BldA) 41 mm[Hg] Normal [facility] Comment on above: Performed By: #### E MRAD ####NO LOCATION NEEDED PCO2 56 mmHg Normal [facility] Comment on above: Performed By: #### E MRAD ####NO LOCATION NEEDED pH (Bld) 7.28 [pH] Normal [facility] Comment on above: Performed By: #### E MRAD ####NO LOCATION NEEDED Potassium molar conc 5.1 mmol/L Normal 3.5 - 5.3 [facility] Comment on above: Performed By: #### E MRAD ####NO LOCATION NEEDED RBC Auto #/vol (Bld) 26.3 mmol/L Normal [facility] Comment on above: Performed By: #### E MRAD ####NO LOCATION NEEDED SO2 66 % Normal [facility] Comment on above: Performed By: #### E MRAD ####NO LOCATION NEEDED Sodium molar conc 136 mmol/L Normal 136 - 145 [facility] Comment on above: Performed By: #### E MRAD ####NO LOCATION NEEDED OPERATIVE REPORTon 8 OPERATIVE REPORT [place], [place] [address]Patient Name: DON ELKINSMRN: [id number]: 1Encounter Number: [id number] of Service: 03/31/2018Patient Location: [facility] T3091 [id number] Type: ISurgeon: Jc Gaston, BEVeport Type: Operative ReportsPREOPERATIVE DIAGNOSIS: 1. Coronary artery disease.2. Ischemic heart disease.3. Non-ST segment elevation myocardial infarction.4. Recent pulmonary embolism, on anticoagulant therapy.5. Diabetes.6. Hypertension.7. Dyslipidemia.8. Obesity.9. [place] [employer] class III.POSTOPERATIVE DIAGNOSIS: 1. Coronary artery disease.2. Ischemic heart disease.3. Non-ST segment elevation myocardial infarction.4. Recent pulmonary embolism, on anticoagulant therapy.5. Diabetes.6. Hypertension.7. Dyslipidemia.8. Obesity.9. [place] [employer] class III.10. Status post coronary [...] MD ESTTT: 04/06/2018 11:16 PM ESTDICTATION NUMBER: [id number] JOB NUMBER: [id number]:Kenneth Cheng MD, PhDElectronically Signed by Dr. Jc Gaston 04/10/2018 09:10:09 AM Normal [facility] Preop Checkliston 03-31-2018 Preop Checklist Preop Checklist:Preo p Checklist: Procedure Typecabg NPO [id number] ID Band Onyes Allergy Bandno known allergies [...] Age Appropriateyes Emotional Statuscalm Electronic Signatures:Christine Martines [facility] (Signed 31-Mar-2018 06:10)Authored: Preop Checklist Last Updated: 31-Mar-2018 06:10 by Christine Martines ([facility] N) Normal [facility] RENAL FUNCTION PANELon 03-31 Albumin mass conc 3.9 g/dL Normal 3.4 - 5.0 [facility] Comment on above: Performed By: #### E MRAD ####NO LOCATION NEEDED Anion gap 3 molar conc 16 mmol/L Normal 10 - 20 [facility] Comment on above: Performed By: #### E MRAD ####NO LOCATION NEEDED Calcium mass conc 8.8 mg/dL Normal 8.6 - 10.6 [facility] Comment on above: Performed By: #### E MRAD ####NO LOCATION NEEDED Chloride molar conc 102 mmol/L Normal 98 - 107 [facility] Comment on above: Performed By: #### E MRAD ####NO LOCATION NEEDED Creatinine mass conc 1.35 mg/dL High 0.50 - 1.30 [facility] Comment on above: Performed By: #### E MRAD ####NO LOCATION NEEDED GFR- AM. 64 mL/min/1.73m2 Normal >60 [facility] Comment on above: Result Comment: CALC ULATIONS OF ESTIMATED GFR ARE PERFORMED USING THE MDRD STUDY EQUATION FOR THE IDMS-TRACEABLE CREATININE METHODS. CLIN CHEM 2007;53:766-72 Performed By: #### E MRAD ####NO LOCATION NEEDED GFR-NON AM. 53 mL/min/1.73m2 Abnormal >60 [facility] Comment on above: Performed By: #### E MRAD ####NO LOCATION NEEDED Glucose mass conc 169 mg/dL High 74 - 99 [facility] Comment on above: Performed By: #### E MRAD ####NO LOCATION NEEDED HCO3 molar conc (Bld) 24 mmol/L Normal 21 - 32 [facility] Comment on above: Performed By: #### E MRAD ####NO LOCATION NEEDED Phosphate mass conc 3.9 mg/dL Normal 2.5 - 4.9 [facility] Comment on above: Result Comment: The performance characteristics of phosphorus testing in heparinized plasma have been validated by the individual laboratory site where testing is performed. Testing on heparinized plasma is not approved by the FDA; however, such approval is not necessary. Performed By: #### E MRAD ####NO LOCATION NEEDED Potassium molar conc 5.0 mmol/L Normal 3.5 - 5.3 [facility] Comment on above: Performed By: #### E MRAD ####NO LOCATION NEEDED Sodium molar conc 137 mmol/L Normal 136 - 145 [facility] Comment on above: Performed By: #### E MRAD ####NO LOCATION NEEDED Urea nitrogen mass conc 22 mg/dL Normal 6 - 23 [facility] Comment on above: Performed By: #### E MRAD ####NO LOCATION NEEDED Albumin mass conc 4.1 g/dL Normal 3.4 - 5.0 [facility] Comment on above: Performed By: #### E MRAD ####NO LOCATION NEEDED Anion gap 3 molar conc 19 mmol/L Normal 10 - 20 [facility] Comment on above: Performed By: #### E MRAD ####NO LOCATION NEEDED Calcium mass conc 9.4 mg/dL Normal 8.6 - 10.6 [facility] Comment on above: Performed By: #### E MRAD ####NO LOCATION NEEDED Chloride molar conc 103 mmol/L Normal 98 - 107 [facility] Comment on above: Performed By: #### E MRAD ####NO LOCATION NEEDED Creatinine mass conc 1.50 mg/dL High 0.50 - 1.30 [facility] Comment on above: Performed By: #### E MRAD ####NO LOCATION NEEDED GFR- AM. 57 mL/min/1.73m2 Abnormal >60 [facility] Comment on above: Result Comment: CALC ULATIONS OF ESTIMATED GFR ARE PERFORMED USING THE MDRD STUDY EQUATION FOR THE IDMS-TRACEABLE CREATININE METHODS. CLIN CHEM 2007;53:766-72 Performed By: #### E MRAD ####NO LOCATION NEEDED GFR-NON AM. 47 mL/min/1.73m2 Abnormal >60 [facility] Comment on above: Performed By: #### E MRAD ####NO LOCATION NEEDED Glucose mass conc 196 mg/dL High 74 - 99 [facility] Comment on above: Performed By: #### E MRAD ####NO LOCATION NEEDED HCO3 molar conc (Bld) 21 mmol/L Normal 21 - 32 [facility] Comment on above: Performed By: #### E MRAD ####NO LOCATION NEEDED Phosphate mass conc 3.2 mg/dL Normal 2.5 - 4.9 [facility] Comment on above: Result Comment: The performance characteristics of phosphorus testing in heparinized plasma have been validated by the individual laboratory site where testing is performed. Testing on heparinized plasma is not approved by the FDA; however, such approval is not necessary. Performed By: #### E MRAD ####NO LOCATION NEEDED Potassium molar conc 5.2 mmol/L Normal 3.5 - 5.3 [facility] Comment on above: Performed By: #### E MRAD ####NO LOCATION NEEDED Sodium molar conc 138 mmol/L Normal 136 - 145 [facility] Comment on above: Performed By: #### E MRAD ####NO LOCATION NEEDED Urea nitrogen mass conc 23 mg/dL Normal 6 - 23 [facility] Comment on above: Performed By: #### E MRAD ####NO LOCATION NEEDED Albumin mass conc Canceled Normal [facility] Comment on above: Order Comment: TEST RENAL FUNCTION PANEL WAS CANCELLED, 03/31/2018 14:47 ?Cancel Reason:Discontinued. Performed By: #### E MRAD ####NO LOCATION NEEDED Anion gap 3 molar conc Canceled Normal [facility] Comment on above: Order Comment: TEST RENAL FUNCTION PANEL WAS CANCELLED, 03/31/2018 14:47 ?Cancel Reason:Discontinued. Performed By: #### E MRAD ####NO LOCATION NEEDED Calcium mass conc Canceled Normal [facility] Comment on above: Order Comment: TEST RENAL FUNCTION PANEL WAS CANCELLED, 03/31/2018 14:47 ?Cancel Reason:Discontinued. Performed By: #### E MRAD ####NO LOCATION NEEDED Chloride molar conc Canceled Normal [facility] Comment on above: Order Comment: TEST RENAL FUNCTION PANEL WAS CANCELLED, 03/31/2018 14:47 ?Cancel Reason:Discontinued. Performed By: #### E MRAD ####NO LOCATION NEEDED Creatinine mass conc Canceled Normal [facility] Comment on above: Order Comment: TEST RENAL FUNCTION PANEL WAS CANCELLED, 03/31/2018 14:47 ?Cancel Reason:Discontinued. Performed By: #### E MRAD ####NO LOCATION NEEDED GFR- AM. Canceled Normal [facility] Comment on above: Order Comment: TEST RENAL FUNCTION PANEL WAS CANCELLED, 03/31/2018 14:47 ?Cancel Reason:Discontinued. Result Comment: CALC ULATIONS OF ESTIMATED GFR ARE PERFORMED USING THE MDRD STUDY EQUATION FOR THE IDMS-TRACEABLE CREATININE METHODS. CLIN CHEM 2007;53:766-72 Performed By: #### E MRAD ####NO LOCATION NEEDED GFR-NON AM. Canceled Normal [facility] Comment on above: Order Comment: TEST RENAL FUNCTION PANEL WAS CANCELLED, 03/31/2018 14:47 ?Cancel Reason:Discontinued. Performed By: #### E MRAD ####NO LOCATION NEEDED Glucose mass conc Canceled Normal [facility] Comment on above: Order Comment: TEST RENAL FUNCTION PANEL WAS CANCELLED, 03/31/2018 14:47 ?Cancel Reason:Discontinued. Performed By: #### E MRAD ####NO LOCATION NEEDED HCO3 molar conc (Bld) Canceled Normal [facility] Comment on above: Order Comment: TEST RENAL FUNCTION PANEL WAS CANCELLED, 03/31/2018 14:47 ?Cancel Reason:Discontinued. Performed By: #### E MRAD ####NO LOCATION NEEDED Phosphate mass conc Canceled Normal [facility] Comment on above: Order Comment: [...] LOCATION NEEDED Potassium molar conc Canceled Normal [facility] Comment on above: Order Comment: TEST RENAL FUNCTION PANEL WAS CANCELLED, 03/31/2018 14:47 ?Cancel Reason:Discontinued. Performed By: #### E MRAD ####NO LOCATION NEEDED Sodium molar conc Canceled Normal [facility] Comment on above: Order Comment: TEST RENAL FUNCTION PANEL WAS CANCELLED, 03/31/2018 14:47 ?Cancel Reason:Discontinued. Performed By: #### E MRAD ####NO LOCATION NEEDED Urea nitrogen mass conc Canceled Normal [facility] Comment on above: Order Comment: [...] Electronically signed by: EDYTA ARIAS MD Normal [facility] ANTICARDIOLIPIN ABon 018 CAROLYN IGM 0.2 MPL U/mL Normal 0.0 - 20.0 [facility] Comment on above: Result Comment: [...] or cryoglobulins. Performed By: #### A CA2 ####[id number] [place] [address] CAROLYN IGA 0.5 APL U/mL Normal 0.0 - 20.0 [facility] Comment on above: Result Comment: Elev ated levels of IgA anti-cardiolipin have not been included in the laboratory criteria for anti-phospholipid syndrome according to an international consensus (J Thromb Haemost 2006 4:295). It may be helpful in identifying subgroups of patients at risk for specific clinical manifestations of anti-phospholipid syndrome. Performed By: #### A CA2 ####[id number] [place] [address] CAROLYN IGG <1.6 Normal 0.0 - 20.0 [facility] Comment on above: Result Comment: Elev ated levels of IgG anti-cardiolipin on 2 occasions at least 12 weeks apart are laboratory criteria for anti-phospholipid syndrome according to an international consensus (J Thromb Haemost 2006 4:295). Performed By: #### A CA2 ####[id number] [place] [address] BETA 2 GLYCOPROTEIN ABon B2 GLYCOPROTEIN AB IGM 0.3 U/mL Normal 0.0 - 20.0 [facility] Comment on above: Result Comment: [...] or cryoglobulins. Performed By: #### B 2GLY ####[id number] [place] [address] B2 GLYCOPROTEIN AB IGA <0.6 Normal 0.0 - 20.0 [facility] Comment on above: Result Comment: [...] anti-phospholipid syndrome. Performed By: #### B 2GLY ####[id number] [id number] B2 GLYCOPROTEIN AB IGG <1.4 Normal 0.0 - 20.0 [facility] Comment on above: Result Comment: Elev ated levels of IgG anti-Beta 2 Glycoprotein-I on 2 occasions at least 12 weeks apart are laboratory criteria for anti-phospholipid syndrome according to an international consensus (J Thromb Haemost 2006 4:295). Performed By: #### B 2GLY ####[id number] [place] [address] CBCon 03-30-2018 Erythrocyte distribution width Auto Ratio (RBC) 12.8 % Normal 11.5 - 14.5 [facility] Comment on above: Performed By: #### C BC ####[id number] [place] [address] Hematocrit Auto Volume Fraction (Bld) 43.0 % Normal 41.0 - 52.0 [facility] Comment on above: Performed By: #### C BC ####[id number] [place] [address] Hemoglobin mass conc (Bld) 14.5 g/dL Normal 13.5 - 17.5 [facility] Comment on above: Performed By: #### C BC ####[id number] [place] [address] MCHC Auto mass conc (RBC) 33.7 g/dL Normal 32.0 - 36.0 [facility] Comment on above: Performed By: #### C BC ####[id number] [place] [address] MCV Auto Entitic volume (RBC) 92 fL Normal 80 - 100 [facility] Comment on above: Performed By: #### C BC ####[id number] [place] [address] Nucleated RBC/100 WBC Ratio (Bld) 0.0 /100 WBC Normal 0.0-0.0 [facility] Comment on above: Performed By: #### C BC ####[id number] [place] [address] Platelets Auto #/vol (Bld) 238 10*3/uL Normal 150 - 450 [facility] Comment on above: Performed By: #### C BC ####[id number] [place] [address] RBC Auto #/vol (Bld) 4.66 x10E12/L Normal 4.50 - 5.90 [facility] Comment on above: Performed By: #### C BC ####[id number] [place] [address] WBC Auto #/vol (Bld) 8.1 10*3/uL Normal 4.4 - 11.3 [facility] Comment on above: Performed By: #### C BC ####[id number] [place] [address] Erythrocyte distribution width Auto Ratio (RBC) 12.8 % Normal 11.5 - 14.5 [facility] Comment on above: Performed By: #### C BC ####[id number] [place] [address] Hematocrit Auto Volume Fraction (Bld) 41.1 % Normal 41.0 - 52.0 [facility] Comment on above: Performed By: #### C BC ####[id number] [place] [address] Hemoglobin mass conc (Bld) 13.7 g/dL Normal 13.5 - 17.5 [facility] Comment on above: Performed By: #### C BC ####[id number] [place] [address] MCHC Auto mass conc (RBC) 33.3 g/dL Normal 32.0 - 36.0 [facility] Comment on above: Performed By: #### C BC ####[id number] [place] [address] MCV Auto Entitic volume (RBC) 93 fL Normal 80 - 100 [facility] Comment on above: Performed By: #### C BC ####[id number] [place] [address] Nucleated RBC/100 WBC Ratio (Bld) 0.0 /100 WBC Normal 0.0-0.0 [facility] Comment on above: Performed By: #### C BC ####[id number] [place] [address] Platelets Auto #/vol (Bld) 233 10*3/uL Normal 150 - 450 [facility] Comment on above: Performed By: #### C BC ####[id number] [place] [address] RBC Auto #/vol (Bld) 4.43 x10E12/L Low 4.50 - 5.90 [facility] Comment on above: Performed By: #### C BC ####[id number] [place] [address] WBC Auto #/vol (Bld) 9.2 10*3/uL Normal 4.4 - 11.3 [facility] Comment on above: Performed By: #### C BC ####[id number] [place] [address] Clinical Intervention - Jude dey 03-30-2018 Clinical Intervention - Pharmacy Pharmacist's Clinical Intervention:Active and Pending Medications:Nitroglycerin 50 mg/ D5W 250 mL Infusion, Solution (TRIDIL)IntraVenous Initial Admin Rate = 3 mL/hr mcg/minNotes from Pharmacy: Initial DOSE Rate = 10 mcg/min = 3 mL/hr., 30-Mar-2018,Active Pharmacist intervention: Contacted physicianType of recommendation: Contacted YARD SPOTTER to clarify lack of titration orders. Shestates since nursing cannot titrate on their own she omitted titrationparameters. She will enter new orders as titration is necessaryIs this intervention medication reconciliation related: NoExpected outcome and basis: Order clarified or correctedTime Required: 1 - 5 minutes Electronic Signatures:Soni Whitman ([facility]) (Signed 30-Mar-2018 12:11)Authored: Pharmacist's Clinical Intervention Last Updated: 30-Mar-2018 12:11 by Soni Whitman ([facility]) Normal [facility] Daily Progress Note-Cardiosandra chavez 03-30-2018 [...] PO at 0500, cortisol level at 0700, njkuatyyjxdxsr00xv IV at 0800 and through surgery. Endocrine needs to be informed of updatesfor Briigda's management. - OR tomorrow, 2nd case- glargine 20 units tonight- trend troponins On day of CABG surgery 03/31 Hydrocortisone 30mg PO 0500Check Cortisol level at 0700ALSOStart Hydrocortisone 25mg IV q6h starting at 0800Call Endocrine on the day of surgery to keep them closely involved Objective Data: Objective Information: T [id number]/6596% Date/Time03/30 11: 13: 11: 13: 11:14Range(35.8C - 36.1C ) (74 - 91 ) (17 - 18 ) (120 - 159 )/ (63 - 92 ) (92%- 99% ) Fuyoecv37/12 3:51: Weight in kg (Weight (kg)) 107.8105/30 3:51: Weight in lbs ((lbs)) 237.8 Physical Exam: Constitutional: Resting in bed, NADHead/Neck: No JVDRespiratory/Thorax: CTABCardiovascular: RRR, S1 N6Eztyqutrxuaybzya: soft, NT/NDExtremities: No LE edemaNeurological: alert and oriented v5Yxjmxvczhmnqi: Appropriate mood and behaviorSkin: psoriasis plaque over [...] Bolus) Injectable: 4000 unit(s) IntraVenous Push Every 5Mzcoe5. Hydrocortisone: 10 mg Oral 10. Hydrocortisone: 5 mg Oral 11. Hydrocortisone: 2.5 mg Oral 12. Insulin Glargine (Lantus) Injectable: 20 unit(s) SubCutaneous Every 76Ogolf43. Insulin Lispro (HumaLOG) Injectable: 12 unit(s) SubCutaneous 3 Times aDay Before Meals14. Insulin Lispro Mild Corrective Scale: unit(s) SubCutaneous 3 Times a DayBefore Meals15. Levothyroxine: 150 microgram(s) Oral Daily16. Mupirocin 2%: 0.5 application(s) Each Nostril 2 Times a Day17. Pantoprazole: 40 mg Oral Daily18. rOPINIRole: 6 mg Oral 19. Sodium Chloride 0.65% Nasal [place]: 2 spray(s) Each Nostril 2 Times aDay PRN Medications -- 1. Dextrose 50% in Water Injectable: 25 gram(s) IntraVenous Push Every 50Elqjwnw8. Glucagon Injectable: 1 mg IntraMuscular Every 15 Minutes3. Nitroglycerin SubLingual: 0.4 mg SubLingual Every 5 Minutes4. Polyethylene Glycol: 17 gram(s) Oral Daily Recent Lab Results: Results: I have reviewed these laboratory results: Glucose_POCT Trending View [id number]-[id number]-[id number] 12:06:00 30-Mar-2018 07:46:00Glucose-ISUQ240 H 153 H Troponin I, Serum Trending View [id number]-Jua-4269 09:37:00 30-Mar-2018 03:58:00Troponin I, Serum0.94 H 0.54 HHLab Comment: TROP CALLED RB TO SWEETIE MOLINA, 03/30/2018 07:28 Radiology Results: Results: Conclusion:Electrocardiogram 12 Lead [Mar 30 2018 11:30AM] Assessment and Plan:Assessment:67 yo M with HTN, DLD, T2DM, Addisson's, GERD, prostate ca s/p prostatectomy [id number], hypothyroidism, psoriasis, and most recently diagnosed with a PE andmultivessel CAD transferred to cardiology at [facility] from [facility] 03/18 for CABG eval. Multiple PEs- addison. [...] 40 mg- Cardiac Cath uploaded: 03/16 at [facility] LM: 10-20%, LAD prox: 30%, LAD mid:95%, Diag 3rd: 99%, RCA: 85 %, PLV: 50%, Circ: 95%- Plan for CABG with Dr. 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 Rothman Signature/Cosignature/Attestat ion:Provider/Team Contact Info-Pager [id number]/ Additional FindingsUnstable angina overnight that resolved with IV nitroglycerin, chest and rightarm pain went to 0/[address] gaston notified, but unable to do surgerysooner. CICU and HF ICU at capacity. If chest pain recurs, may need to beconsidered for IABP . Plan for now is for CABG 03/31/2018. Low threshold forICU transfer.Patent with Brigida's and appreciate detailed steroid management plan perEndocrinology Electronic Signatures:Latisha Rothman) (Signed 30-Mar-2018 18:09)Authored: Signature/Cosignature/Attestat ionCo-Signer: Service, Subjective Data, Objective Data, Assessment and Plan,Signature/Cosignature/Att estationPamKate abraham ([employer]) (Signed 30-Mar-2018 15:06)Authored: Service, Subjective Data, Objective Data, Assessment and Plan,Signature/Cosignature/Att estation Last Updated: 30-Mar-2018 18:09 by Latisha Rothman) Normal [facility] Daily Progress Note-Endocrin ologyon 03-30-2018 Protein mass conc Consult Type: subseq uent visit/care Service: Endocrinology Subjective Data:DON ELKINS is a 67 year old Male who is Hospital Day # 13. Objective Data: Objective Information:T [id number]/6596% Date/Time03/30 11: 13: 11: 13: 11:14Range(35.8C - [...] Bolus) Injectable: 4000 unit(s) IntraVenous Push Every 0Nbqxh4. Hydrocortisone: 10 mg Oral 10. Hydrocortisone: 5 mg Oral 11. Hydrocortisone: 2.5 mg Oral 12. Insulin Glargine (Lantus) Injectable: 20 unit(s) SubCutaneous Every 70Amquj05. Insulin Lispro (HumaLOG) Injectable: 12 unit(s) SubCutaneous 3 Times aDay Before Meals14. Insulin Lispro Mild Corrective Scale: unit(s) SubCutaneous 3 Times a DayBefore Meals15. Levothyroxine: 150 microgram(s) Oral Daily16. Mupirocin 2%: 0.5 application(s) Each Nostril 2 Times a Day17. Pantoprazole: 40 mg Oral Daily18. rOPINIRole: 6 mg Oral 19. Sodium Chloride 0.65% Nasal [place]: 2 spray(s) Each Nostril 2 Times aDay PRN Medications -- 1. Dextrose 50% in Water Injectable: 25 gram(s) IntraVenous Push Every 01Dbxcjbn8. Glucagon Injectable: 1 mg IntraMuscular Every 15 Minutes3. Nitroglycerin SubLingual: 0.4 mg SubLingual Every 5 Minutes4. Polyethylene Glycol: 17 gram(s) Oral Daily Recent Lab Results: Results: I have reviewed these laboratory results: Glucose_POCT Trending View [id number]-[id number] 12:06:00 30-Mar-2018 07:46:00 29-Mar-2018 20:49:00 29-Mar-2018 17:04:00 29-Mar-2018 13:15:00 29-Mar-2018 07:09:00 27-Wld-660618:50:00 28-Mar-2018 16:38:00Glucose-TOEU829 H 153 H 244 H 258 H 217 H 186 H 271H 363 H Renal Function Panel Trending View Wompre40-Znz-2700 19:58:00 28-Mar-2018 21:29:00Glucose, Rmfeu749 H 220 VZP245 L 139K4.6 4.5CL99 103Bicarbonate, Serum19 L 27Anion Gap, Serum19 13LVD64 H 46GHBWP1.32 H 1.44 HGFR-Non Guvgacbr71 A 49 AGFR- Gyuqkdbk41 59 ACalcium, Serum9.3 9.5Phosphorus, Serum4.2 4.0ALB3.9 4.0 Assessment and Plan:Assessment: Mr. Elkins is a 67 yo WM with no known history of CAD, who has a past medicalhistory of HTN, HLD, T2DM, Bunn's disease, hypothyroidism, COPD, AKASH onCPAP, prostate ca s/p prostatectomy in 2011, and psoriasis who was [facility]to [facility] on 03/18 forCABG eval.Endocrine consulted fr evaluation of Bunn disease and treatment periop Patient was on [...] then continue Hydrocortisone as 25 mg IV x0abtwclnqxzjtx as of 8 am. 2. T2DM-- Decrease lantus to 20 units tonight-- Lispro to 12 units TIDAC to be held off after dinner time dose tonight-- Continue ISS 2 units for every 50 above 150-- POCT AC and qHs-- Hypoglycemia protocol--Diabetic diet--will follow Please page with questions [phone] Patient seen and examined, plan discussed with [...] patient (as noted in the above attestation) [id number] Electronic Signatures:Starr Quevedo) (Signed 31-Mar-2018 10:06)Authored: Signature/Cosignature/Attestat ionCo-Signer: Service, Subjective Data, Objective Data, Assessment and Plan,Signature/Cosignature/Att estationHasmukh Stephenson (Resident)) (Signed 30-Mar-2018 15:28)Authored: Service, Subjective Data, Objective Data, Assessment and Plan,Signature/Cosignature/Att estation Last Updated: 31-Mar-2018 10:06 by Starr Quevedo) Normal [facility] GLUCOSE-POCTon 03-30-2018 Glucose mass conc 207 mg/dL High 74 - 99 [facility] Comment on above: Performed By: #### G BECKY ####[id number] [place] [address] Glucose mass conc 216 mg/dL High 74 - 99 [facility] Comment on above: Performed By: #### G BECKY ####[id number] [place] [address] Glucose mass conc 205 mg/dL High 74 - 99 [facility] Comment on above: Performed By: #### G BECKY ####[id number] [place] [address] Glucose mass conc 153 mg/dL High - 99 [facility] Comment on above: Performed By: #### G BECKY ####[id number] [place] [address] HEPARIN ASSAY,UFHon 03-30-20 18 HEPARIN ASSAY,UFH 0.4 IU/mL Normal [facility] Comment on above: Result Comment: The therapeutic reference range for UFH may be either 0.3-0.6 IU/mL or 0.3-0.7 IU/mL based on the clinical setting for anticoagulant therapy and the associated nomogram used. For heparin dosing guidelines based on clinical scenario and Heparin Assay results, please refer to local Pharmacy and the [facility] Guidelines for Anticoagulation therapy available on the [facility] intranet at:[email or web address]_Guidelines_for_Anticoagu.aspx Performed By: #### H AUF ####[id number] [place] [address] LUPUS ANTICOAG. WITH INTERPR ETATION[JACK]on 03-30-2018 [place] INTERPRETATION SEE BELOW Normal [facility] Comment on above: Result Comment: [...] individual patient. Performed By: #### L AI ####[id number] [place] [address] SCT CONFIRMATION 1.10 RATIO Normal [facility] Comment on above: Performed By: #### L AI ####[id number] [place] [address] SCT SCREEN 0.87 RATIO Normal [facility] Comment on above: Performed By: #### L AI ####[id number] [id number] SCT TEST RATIO 0.79 RATIO Normal <=1.16 [facility] Comment on above: Performed By: #### L AI ####[id number] [id number] DRVVT CONFIRMATION 0.98 RATIO Normal [facility] Comment on above: Performed By: #### L AI ####[id number] [id number] DRVVT SCREEN 1.02 RATIO Normal [facility] Comment on above: Performed By: #### L AI ####[id number] [id number] DRVVT TEST RATIO 1.03 RATIO Normal <=1.20 [facility] Comment on above: Performed By: #### L AI ####[id number] [place] [address] RENAL FUNCTION PANELon 03-30 Albumin mass conc 4.1 g/dL Normal 3.4 - 5.0 [facility] Comment on above: Performed By: #### R ENAL ####[id number] [place] [address] Anion gap 3 molar conc 16 mmol/L Normal 10 - 20 [facility] Comment on above: Performed By: #### R ENAL ####[id number] [place] [address] Calcium mass conc 9.5 mg/dL Normal 8.6 - 10.6 [facility] Comment on above: Performed By: #### R ENAL ####[id number] [place] [address] Chloride molar conc 101 mmol/L Normal 98 - 107 [facility] Comment on above: Performed By: #### R ENAL ####[id number] [place] [address] Creatinine mass conc 1.68 mg/dL High 0.50 - 1.30 [facility] Comment on above: Performed By: #### R ENAL ####[id number] [place] [address] GFR- AM. 50 mL/min/1.73m2 Abnormal >60 [facility] Comment on above: Result Comment: CALC ULATIONS OF ESTIMATED GFR ARE PERFORMED USING THE MDRD STUDY EQUATION FOR THE IDMS-TRACEABLE CREATININE METHODS. CLIN CHEM 2007;53:766-72 Performed By: #### R ENAL ####[id number] [place] [address] GFR-NON AM. 41 mL/min/1.73m2 Abnormal >60 [facility] Comment on above: Performed By: #### R ENAL ####[id number] [place] [address] Glucose mass conc 193 mg/dL High 74 - 99 [facility] Comment on above: Performed By: #### R ENAL ####[id number] [place] [address] HCO3 molar conc (Bld) 23 mmol/L Normal 21 - 32 [facility] Comment on above: Performed By: #### R ENAL ####[id number] [place] [address] Phosphate mass conc 4.5 mg/dL Normal 2.5 - 4.9 [facility] Comment on above: Result Comment: The performance characteristics of phosphorus testing in heparinized plasma have been validated by the individual laboratory site where testing is performed. Testing on heparinized plasma is not approved by the FDA; however, such approval is not necessary. Performed By: #### R ENAL ####[id number] [place] [address] Potassium molar conc 4.4 mmol/L Normal 3.5 - 5.3 [facility] Comment on above: Performed By: #### R ENAL ####[id number] [place] [address] Sodium molar conc 136 mmol/L Normal 136 - 145 [facility] Comment on above: Performed By: #### R ENAL ####[id number] [place] [address] Urea nitrogen mass conc 24 mg/dL High 6 - 23 [facility] Comment on above: Performed By: #### R ENAL ####[id number] [place] [address] TROPONIN Ion 03-30-2018 Troponin I.cardiac mass conc 0.64 ng/mL High 0.00 - 0.03 [facility] Comment on above: Result Comment: [...] testing is performed using differenttesting methodology at [facility] than at [facility]. Direct result comparisons should onlybe made within the same method.. Patients receiving more than 5 mg/day of biotin may have interference in test results. A sample should be taken no sooner than eight hours after previous dose. Contact [phone] for additional information.This is a critical result.Per Laboratory policy, critical results for this testonly qualify to the call list once per 24 hours. Performed By: #### T ROP2 ####[id number] [place] [address] Troponin I.cardiac mass conc 0.94 ng/mL High 0.00 - 0.03 [facility] Comment on above: Result Comment: [...] testing is performed using differenttesting methodology at [facility] than at [facility]. Direct result comparisons should onlybe made within the same method.. Patients receiving more than 5 mg/day of biotin may have interference in test results. A sample should be taken no sooner than eight hours after previous dose. Contact [phone] for additional information.This is a critical result.Per Laboratory policy, critical results for this testonly qualify to the call list once per 24 hours. Performed By: #### T ROP2 ####[id number] [place] [address] Troponin I.cardiac mass conc 0.54 ng/mL Critically high 0.00 - 0.03 [facility] Comment on above: Order Comment: [...] testing is performed using differenttesting methodology at [facility] than at [facility]. Direct result comparisons should onlybe made within the same method.. Patients receiving more than 5 mg/day of biotin may have interference in test results. A sample should be taken no sooner than eight hours after previous dose. Contact [phone] for additional information.TROP CALLED RB TO SWEETIE MOLINA, 03/30/2018 07:28 Performed By: #### T ROP2 ####[id number] [place] [address] Troponin I.cardiac mass conc ng/mL Normal 0.00 - 0.03 [facility] Comment on above: Result Comment: [...] testing is performed using differenttesting methodology at [facility] than at [facility]. Direct result comparisons should onlybe made within the same method.. Patients receiving more than 5 mg/day of biotin may have interference in test results. A sample should be taken no sooner than eight hours after previous dose. Contact [phone] for additional information. Performed By: #### T ROP2 ####[id number] [place] [address] TYPE + SCREENon 03-30-2018 ABO TYPE A Normal [facility] Comment on above: Performed By: #### T +S ####[id number] [place] [address] RH TYPE Positive Normal [facility] Comment on above: Performed By: #### T +S ####[id number] [id number] CBCon 03-29-2018 Erythrocyte distribution width Auto Ratio (RBC) 12.7 % Normal 11.5 - 14.5 [facility] Comment on above: Performed By: #### C BC ####[id number] [place] [address] Hematocrit Auto Volume Fraction (Bld) 40.1 % Low 41.0 - 52.0 [facility] Comment on above: Performed By: #### C BC ####[id number] [place] [address] Hemoglobin mass conc (Bld) 13.6 g/dL Normal 13.5 - 17.5 [facility] Comment on above: Performed By: #### C BC ####[id number] [place] [address] MCHC Auto mass conc (RBC) 33.9 g/dL Normal 32.0 - 36.0 [facility] Comment on above: Performed By: #### C BC ####[id number] [place] [address] MCV Auto Entitic volume (RBC) 92 fL Normal 80 - 100 [facility] Comment on above: Performed By: #### C BC ####[id number] [place] [address] Nucleated RBC/100 WBC Ratio (Bld) 0.0 /100 WBC Normal 0.0-0.0 [facility] Comment on above: Performed By: #### C BC ####[id number] [place] [address] Platelets Auto #/vol (Bld) 232 10*3/uL Normal 150 - 450 [facility] Comment on above: Performed By: #### C BC ####[id number] [place] [address] RBC Auto #/vol (Bld) 4.37 x10E12/L Low 4.50 - 5.90 [facility] Comment on above: Performed By: #### C BC ####[id number] [place] [address] WBC Auto #/vol (Bld) 9.1 10*3/uL Normal 4.4 - 11.3 [facility] Comment on above: Performed By: #### C ####[id number] [place] [address] Daily Progress Note-Cardiosandra chavez 03-29-2018 Protein mass conc Service: Cardiology Subjective Data:DON ELKINS is a 67 year old Male who is Hospital Day # 12. Additional Information: Resting in bed, has been ambulating in halls, hypercoagulable work up pending - plan for OR Saturday 03/31- c/w Heparin gtt Objective Data: Objective Information:T [id number]/9095% Date/Time03/29 12: 12: 12: 12: 12:00Range(36C - 36.4C ) (67 - 92 ) (18 - 20 ) (131 - 161 )/ (70 - 93 ) (92% -96% ) Pain with Activity reported at 03/29 8:00: 0Pain at Rest reported at 03/29 8:00: 0 Pnbcqvb94/11 4:20: Weight in kg (Weight (kg)) 107.7105/29 4:20: Weight in lbs ((lbs)) 237.4 Physical Exam: Constitutional: Resting in bed, NADHead/Neck: No JVDRespiratory/Thorax: CTABCardiovascular: RRR, S1 J7Fgfyxdcnroqezayr: soft, NT/NDExtremities: No LE edemaNeurological: alert and oriented b5Ydmbknhcltdyn: Appropriate mood and behaviorSkin: psoriasis plaque over [...] Bolus) Injectable: 4000 unit(s) IntraVenous Push Every 7Axuub3. Hydrocortisone: 10 mg Oral 9. Hydrocortisone: 5 mg Oral 10. Hydrocortisone: 2.5 mg Oral 11. Insulin Glargine (Lantus) Injectable: 30 unit(s) SubCutaneous Every 45Yalic05. Insulin Lispro (HumaLOG) Injectable: 12 unit(s) SubCutaneous 3 Times aDay Before Meals13. Insulin Lispro Mild Corrective Scale: unit(s) SubCutaneous 3 Times a DayBefore Meals14. Levothyroxine: 150 microgram(s) Oral Daily15. Mupirocin 2%: 0.5 application(s) Each Nostril 2 Times a Day16. Pantoprazole: 40 mg Oral Daily17. rOPINIRole: 6 mg Oral 18. Sodium Chloride 0.65% Nasal [place]: 2 spray(s) Each Nostril 2 Times aDay PRN Medications -- 1. Dextrose 50% in Water Injectable: 25 gram(s) IntraVenous Push Every 09Uavkkor4. Glucagon Injectable: 1 mg IntraMuscular Every 15 Minutes3. Polyethylene Glycol: 17 gram(s) Oral Daily Currently Suspended Medications -- 1. Chlorhexidine Gluconate 4% Topical: 1 application(s) Topical Once Recent Lab Results: Results: I have reviewed these laboratory results: Glucose_POCT Trending View [id number] 13:15:00 29-Mar-2018 07:09:00 28-Mar-2018 19:50:00 28-Mar-2018 16:38:00Glucose-[id number] H 186 H 271 H 363 H [...] and may make absolute Segmental Limb Pressures (FLEXOGRAPHIC PRESS HELPER) unreliable.Triphasic flow is noted in the left dorsalis pedis artery, left posteriortibial artery and left common femoral artery. VASC LAB PVR (Arterial Physiologic) BROOKS [Mar 25 2018 7:15PM] Assessment and Plan:Assessment:67 yo M with HTN, DLD, T2DM, Addisson's, GERD, prostate ca s/p prostatectomy [id number], hypothyroidism, psoriasis, and most recently diagnosed with a PE andmultivessel CAD transferred to cardiology at [facility] from [facility] 03/18 for CABG eval. Multiple PEs- addison. Segmental and subsegmental PE on CT- Repeat TTE --> No Right dilation or strain- 2V CXR --> No radiographic evidence of acute cardiopulmonary process.- Appreciate Pulmonary assistance- per pulm NO need for repeat CT chest prior to OR- c/w Heparin gtt- 03/23 IVC Filter placement- Delay CABG for 1 week Tentative plan with Dr. Gastno Monica03/31- plan for 3-6 months anticoagulation (1st episode unprovoked PE)- Hypercoagulable work up pending- PSA <10 Multivessel CAD- 03/19 TTE EF 60-65%, impaired relaxation- EKG without acute ST T wave changes- cont Atorva 40 mg- Cardiac Cath uploaded: 03/16 at [facility] LM: 10-20%, LAD prox: 30%, LAD mid:95%, [...] increase lispro to 10 units TID AC Bunn's disease- 03/22 Reduce fludrocortisone to 0.05 mg [...] heparin gtt for PE. Electronic Signatures:Vito Patino ([employer]-PAPER SLITTER) (Signed 29-Mar-2018 15:36)Authored: Service, Subjective Data, Objective Data, Assessment and Plan,Signature/Cosignature/Att estationLeonel Arteaga) (Signed 29-Mar-2018 17:23)Authored: Signature/Cosignature/Attestat ionCo-Signer: Service, Subjective Data, Objective Data, Assessment and Plan,Signature/Cosignature/Att estation Last Updated: 29-Mar-2018 17:23 by Leonel Arteaga) Normal [facility] Daily Progress Note-Endocrin cherie 03-29-2018 Protein mass conc Consult Type: subseq uent visit/care Service: Endocrinology Subjective Data:DON ELKINS is a 67 year old Male who is Hospital Day # 12. OR postponed till Friday. Objective Data: Objective Information:T [id number]/8596% Date/Time03/29 7: 7: 7: 7: 7:35Range(36C - [...] Bolus) Injectable: 4000 unit(s) IntraVenous Push Every 7Oqimz0. Hydrocortisone: 10 mg Oral 9. Hydrocortisone: 5 mg Oral 10. Hydrocortisone: 2.5 mg Oral 11. Insulin Glargine (Lantus) Injectable: 30 unit(s) SubCutaneous Every 15Fretk11. Insulin Lispro (HumaLOG) Injectable: 12 unit(s) SubCutaneous 3 Times aDay Before Meals13. Insulin Lispro Mild Corrective Scale: unit(s) SubCutaneous 3 Times a DayBefore Meals14. Levothyroxine: 150 microgram(s) Oral Daily15. Mupirocin 2%: 0.5 application(s) Each Nostril 2 Times a Day16. Pantoprazole: 40 mg Oral Daily17. rOPINIRole: 6 mg Oral 18. Sodium Chloride 0.65% Nasal [place]: 2 spray(s) Each Nostril 2 Times aDay PRN Medications -- 1. Dextrose 50% in Water Injectable: 25 gram(s) IntraVenous Push Every 13Rkspiut5. Glucagon Injectable: 1 mg IntraMuscular Every 15 Minutes3. Polyethylene Glycol: 17 gram(s) Oral Daily Currently Suspended Medications -- 1. Chlorhexidine Gluconate 4% Topical: 1 application(s) Topical Once Recent Lab Results: Results: I have reviewed these laboratory results: Glucose_POCT Trending View [id number] 07:09:00 28-Mar-2018 19:50:00 28-Mar-2018 16:38:00 28-Mar-2018 12:35:00 28-Mar-2018 07:38:00 27-Mar-2018 22:33:00Glucose-HLMJ102 H 271 H 363 H 231 H [...] a past medicalhistory of HTN, HLD, T2DM, Bunn's disease, hypothyroidism, COPD, AKASH onCPAP, prostate ca s/p prostatectomy in 2011, and psoriasis [facility] on 03/18 forCABG youngal.Endocrine consulted fr evaluation of Bunn disease and treatment periop Patient was on supra-therapeutic dose of HCT 20-0-20 , fludrocortisone 0.1 ,mgdailyPatient has uncontrolled HTN and uncontrolled BSMost likely tomorrow (03/23) IVC filter placement Recommendations:1. Brigida's Disease-- Fludrocortisone 0.05 mg 4 times weekly ( and friday)-- Continue Hydrocortisone to 10-5-2.5 mg at [id number]-54mj-7vm DAILY as of tomorrow -On the day [...] protocol--Diabetic diet--will follow Please page with questions [phone] Patient seen and examined, plan discussed with [...] patient (as noted in the above attestation) [id number] Electronic Signatures:Marisol Monet) (Signed 30-Mar-2018 14:34)Authored: Signature/Cosignature/Attestat ionCo-Signer: Service, Subjective Data, Objective Data, Assessment and Plan,Signature/Cosignature/Att estationHasmukh Stephenson (Resident)) (Signed 29-Mar-2018 11:39)Authored: Service, Subjective Data, Objective Data, Assessment and Plan,Signature/Cosignature/Att estation Last Updated: 30-Mar-2018 14:34 by Marisol Monet) Normal [facility] GLUCOSE-POCTon 03-29-2018 Glucose mass conc 244 mg/dL High 74 - 99 [facility] Comment on above: Performed By: #### G BECKY ####[id number] [place] [address] Glucose mass conc 258 mg/dL High 74 - 99 [facility] Comment on above: Performed By: #### G BECKY ####[id number] [place] [address] Glucose mass conc 217 mg/dL High 74 - 99 [facility] Comment on above: Performed By: #### G BECKY ####[id number] [place] [address] Glucose mass conc 186 mg/dL High 74 - 99 [facility] Comment on above: Performed By: #### G BECKY ####[id number] [place] [address] HEPARIN ASSAY,UFHon --20 18 HEPARIN ASSAY,UFH 0.4 IU/mL Normal [facility] Comment on above: Result Comment: The therapeutic reference range for UFH may be either 0.3-0.6 IU/mL or 0.3-0.7 IU/mL based on the clinical setting for anticoagulant therapy and the associated nomogram used. For heparin dosing guidelines based on clinical scenario and Heparin Assay results, please refer to local Pharmacy and [facility] Guidelines for Anticoagulation therapy available on the [facility] intranet at:[email or web address]_Guidelines_for_Anticoagu.aspx Performed By: #### H AUF ####[id number] [place] [address] HEPARIN ASSAY,UFH 0.4 IU/mL Normal [facility] Comment on above: Result Comment: The therapeutic reference range for UFH may be either 0.3-0.6 IU/mL or 0.3-0.7 IU/mL based on the clinical setting for anticoagulant therapy and the associated nomogram used. For heparin dosing guidelines based on clinical scenario and Heparin Assay results, please refer to local Pharmacy and [facility] Guidelines for Anticoagulation therapy available on the [facility] intranet at:[email or web address]_Guidelines_for_[email or web address].aspx Performed By: #### H AUF ####[id number] [place] [address] RENAL FUNCTION PANELon 03-29 Albumin mass conc 3.9 g/dL Normal 3.4 - 5.0 [facility] Comment on above: Performed By: #### R ENAL ####[id number] [place] [address] Anion gap 3 molar conc 19 mmol/L Normal 10 - 20 [facility] Comment on above: Performed By: #### R ENAL ####[id number] [place] [address] Calcium mass conc 9.3 mg/dL Normal 8.6 - 10.6 [facility] Comment on above: Performed By: #### R ENAL ####[id number] [place] [address] Chloride molar conc 99 mmol/L Normal 98 - 107 [facility] Comment on above: Performed By: #### R ENAL ####[id number] [place] [address] Creatinine mass conc 1.32 mg/dL High 0.50 - 1.30 [facility] Comment on above: Performed By: #### R ENAL ####[id number] [place] [address] GFR- AM. 65 mL/min/1.73m2 Normal >60 [facility] Comment on above: Result Comment: CALC ULATIONS OF ESTIMATED GFR ARE PERFORMED USING THE MDRD STUDY EQUATION FOR THE IDMS-TRACEABLE CREATININE METHODS. CLIN CHEM 2007;53:766-72 Performed By: #### R ENAL ####[id number] [place] [address] GFR-NON AM. 54 mL/min/1.73m2 Abnormal >60 [facility] Comment on above: Performed By: #### R ENAL ####[id number] [place] [address] Glucose mass conc 237 mg/dL High 74 - 99 [facility] Comment on above: Performed By: #### R ENAL ####[id number] [place] [address] HCO3 molar conc (Bld) 19 mmol/L Low 21 - 32 [facility] Comment on above: Performed By: #### R ENAL ####[id number] [place] [address] Phosphate mass conc 4.2 mg/dL Normal 2.5 - 4.9 [facility] Comment on above: Result Comment: The performance characteristics of phosphorus testing in heparinized plasma have been validated by the individual laboratory site where testing is performed. Testing on heparinized plasma is not approved by the FDA; however, such approval is not necessary. Performed By: #### R ENAL ####[id number] [place] [address] Potassium molar conc 4.6 mmol/L Normal 3.5 - 5.3 [facility] Comment on above: Performed By: #### R ENAL ####[id number] [place] [address] Sodium molar conc 132 mmol/L Low 136 - 145 [facility] Comment on above: Performed By: #### R ENAL ####[id number] [place] [address] Urea nitrogen mass conc 24 mg/dL High 6 - 23 [facility] Comment on above: Performed By: #### R ENAL ####[id number] [place] [address] Albumin mass conc 4.0 g/dL Normal 3.4 - 5.0 [facility] Comment on above: Performed By: #### R ENAL ####[id number] [place] [address] Anion gap 3 molar conc 14 mmol/L Normal 10 - 20 [facility] Comment on above: Performed By: #### R ENAL ####[id number] [place] [address] Calcium mass conc 9.5 mg/dL Normal 8.6 - 10.6 [facility] Comment on above: Performed By: #### R ENAL ####[id number] [place] [address] Chloride molar conc 103 mmol/L Normal 98 - 107 [facility] Comment on above: Performed By: #### R ENAL ####[id number] [place] [address] Creatinine mass conc 1.44 mg/dL High 0.50 - 1.30 [facility] Comment on above: Performed By: #### R ENAL ####[id number] [place] [address] GFR- AM. 59 mL/min/1.73m2 Abnormal >60 [facility] Comment on above: Result Comment: CALC ULATIONS OF ESTIMATED GFR ARE PERFORMED USING THE MDRD STUDY EQUATION FOR THE IDMS-TRACEABLE CREATININE METHODS. CLIN CHEM 2007;53:766-72 Performed By: #### R ENAL ####[id number] [place] [address] GFR-NON AM. 49 mL/min/1.73m2 Abnormal >60 [facility] Comment on above: Performed By: #### R ENAL ####[id number] [place] [address] Glucose mass conc 220 mg/dL High 74 - 99 [facility] Comment on above: Performed By: #### R ENAL ####[id number] [place] [address] HCO3 molar conc (Bld) 27 mmol/L Normal 21 - 32 [facility] Comment on above: Performed By: #### R ENAL ####[id number] [place] [address] Phosphate mass conc 4.0 mg/dL Normal 2.5 - 4.9 [facility] Comment on above: Result Comment: The performance characteristics of phosphorus testing in heparinized plasma have been validated by the individual laboratory site where testing is performed. Testing on heparinized plasma is not approved by the FDA; however, such approval is not necessary. Performed By: #### R ENAL ####[id number] [place] [address] Potassium molar conc 4.5 mmol/L Normal 3.5 - 5.3 [facility] Comment on above: Performed By: #### R ENAL ####[id number] [place] [address] Sodium molar conc 139 mmol/L Normal 136 - 145 [facility] Comment on above: Performed By: #### R ENAL ####[id number] [place] [address] Urea nitrogen mass conc 23 mg/dL Normal 6 - 23 [facility] Comment on above: Performed By: #### R ENAL ####[id number] [place] [address] CBCon 03-28-2018 Erythrocyte distribution width Auto Ratio (RBC) 12.8 % Normal 11.5 - 14.5 [facility] Comment on above: Performed By: #### C BC ####[id number] [place] [address] Hematocrit Auto Volume Fraction (Bld) 41.4 % Normal 41.0 - 52.0 [facility] Comment on above: Performed By: #### C BC ####[id number] [place] [address] Hemoglobin mass conc (Bld) 13.9 g/dL Normal 13.5 - 17.5 [facility] Comment on above: Performed By: #### C BC ####[id number] [place] [address] MCHC Auto mass conc (RBC) 33.6 g/dL Normal 32.0 - 36.0 [facility] Comment on above: Performed By: #### C BC ####[id number] [place] [address] MCV Auto Entitic volume (RBC) 93 fL Normal 80 - 100 [facility] Comment on above: Performed By: #### C BC ####[id number] [place] [address] Nucleated RBC/100 WBC Ratio (Bld) 0.0 /100 WBC Normal 0.0-0.0 [facility] Comment on above: Performed By: #### C BC ####[id number] [place] [address] Platelets Auto #/vol (Bld) 230 10*3/uL Normal 150 - 450 [facility] Comment on above: Performed By: #### C BC ####[id number] [place] [address] RBC Auto #/vol (Bld) 4.46 x10E12/L Low 4.50 - 5.90 [facility] Comment on above: Performed By: #### C BC ####[id number] [place] [address] WBC Auto #/vol (Bld) 8.2 10*3/uL Normal 4.4 - 11.3 [facility] Comment on above: Performed By: #### C BC ####[id number] [place] [address] Daily Progress Note-Cardiolo kathy 03-28-2018 Protein mass conc Service: Cardiology Subjective Data:DON ELKINS is a 67 year old Male who is Hospital Day # 11. Additional Information: Resting in bed, has been ambulating in halls, hypercoagulable work up pending,BS better controlled - plan for OR Saturday 03/31- c/w Heparin gtt Objective Data: Objective Information:T UVBTZdY0Luxag01.60875277/8196% Date/Time03/28 8: 8: 8: 8: 8:00Range(35.9C - 36.7C ) (71 - 85 ) (17 - 20 ) (125 - 165 )/ (72 - 97 ) (94%- 96% ) Pain at Rest reported at 03/28 0:05: 0 Ugnboju36/10 3:52: Weight in kg (Weight (kg)) 107. 3:52: Weight in lbs ((lbs)) 237.2 Physical Exam: Constitutional: Resting in bed, NADHead/Neck: No JVDRespiratory/Thorax: CTABCardiovascular: RRR, S1 D8Owuemtnqpnzohzwf: soft, NT/NDExtremities: No LE edemaNeurological: alert and oriented x6Wlpsrjevhuoxw: Appropriate mood and behaviorSkin: psoriasis plaque over [...] Bolus) Injectable: 4000 unit(s) IntraVenous Push Every 3Bkumd0. Hydrocortisone: 10 mg Oral 9. Hydrocortisone: 5 mg Oral 10. Hydrocortisone: 2.5 mg Oral 11. Insulin Glargine (Lantus) Injectable: 30 unit(s) SubCutaneous Every 71Xpntl69. Insulin Lispro (HumaLOG) Injectable: 10 unit(s) SubCutaneous 3 Times aDay Before Meals13. Insulin Lispro Mild Corrective Scale: unit(s) SubCutaneous 3 Times a DayBefore Meals14. Levothyroxine: 150 microgram(s) Oral Daily15. Mupirocin 2%: 0.5 application(s) Each Nostril 2 Times a Day16. Pantoprazole: 40 mg Oral Daily17. rOPINIRole: 6 mg Oral 18. Sodium Chloride 0.65% Nasal [place]: 2 spray(s) Each Nostril 2 Times aDay PRN Medications -- 1. Dextrose 50% in Water Injectable: 25 gram(s) IntraVenous Push Every 28Rugvyvn2. Glucagon Injectable: 1 mg IntraMuscular Every 15 Minutes3. Polyethylene Glycol: 17 gram(s) Oral Daily Currently Suspended Medications -- 1. Chlorhexidine Gluconate 4% Topical: 1 application(s) Topical Once Recent Lab Results: Results: I have reviewed these laboratory results: Glucose_POCT Trending View Itrymz15-Kby-2151 07:38:00 27-Mar-2018 22:33:00Glucose-HEDP619 H 268 H Heparin assay, UFH 27-Mar-2018 [...] and may make absolute Segmental Limb Pressures (FLEXOGRAPHIC PRESS HELPER) unreliable.Triphasic flow is noted in the left dorsalis pedis artery, left posteriortibial artery and left common femoral artery. [facility] LAB PVR (Arterial Physiologic) BROOKS [Mar 25 2018 7:15PM] Assessment and Plan:Assessment:67 yo M with HTN, DLD, T2DM, Addisson's, GERD, prostate ca s/p prostatectomy [id number], hypothyroidism, psoriasis, and most recently diagnosed with a PE andmultivessel CAD transferred to cardiology at [facility] from [facility] 03/18 for CABG eval. Multiple PEs- addison. 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 Electronic Signatures:Vito Patino (INSTRUCTOR GROUND SERVICES-PAPER SLITTER) (Signed 28-Mar-2018 10:27)Authored: Service, Subjective Data, Objective Data, Assessment and Plan,Signature/Cosignature/Att Leonel Chilel) (Signed 28-Mar-2018 20:06)Authored: Signature/Cosignature/Attestat ionCo-Signer: Service, Subjective Data, Objective Data, Assessment and Plan,Signature/Cosignature/Att estation Last Updated: 28-Mar-2018 20:06 by Leonel Arteaga) Normal [facility] GLUCOSE-POCTon 03-28-2018 Glucose mass conc 271 mg/dL High 74 - 99 [facility] Comment on above: Performed By: #### G BECKY ####[id number] [place] [address] Glucose mass conc 363 mg/dL High 74 - 99 [facility] Comment on above: Performed By: #### G BECKY ####[id number] [place] [address] Glucose mass conc 231 mg/dL High 74 - 99 [facility] Comment on above: Performed By: #### G BECKY ####[id number] [place] [address] Glucose mass conc 171 mg/dL High 74 - 99 [facility] Comment on above: Performed By: #### G BECKY ####[id number] [place] [address] Glucose mass conc 268 mg/dL High 74 - 99 [facility] Comment on above: Performed By: #### G BECKY ####[id number] [place] [address] RENAL FUNCTION PANELon 03-28 Albumin mass conc 3.9 g/dL Normal 3.4 - 5.0 [facility] Comment on above: Performed By: #### R ENAL ####[id number] [place] [address] Anion gap 3 molar conc 18 mmol/L Normal 10 - 20 [facility] Comment on above: Performed By: #### R ENAL ####[id number] [place] [address] Calcium mass conc 9.3 mg/dL Normal 8.6 - 10.6 [facility] Comment on above: Performed By: #### R ENAL ####[id number] [place] [address] Chloride molar conc 98 mmol/L Normal 98 - 107 [facility] Comment on above: Performed By: #### R ENAL ####[id number] [place] [address] Creatinine mass conc 1.48 mg/dL High 0.50 - 1.30 [facility] Comment on above: Performed By: #### R ENAL ####[id number] [place] [address] GFR- AM. 57 mL/min/1.73m2 Abnormal >60 [facility] Comment on above: Result Comment: CALC ULATIONS OF ESTIMATED GFR ARE PERFORMED USING THE MDRD STUDY EQUATION FOR THE IDMS-TRACEABLE CREATININE METHODS. CLIN CHEM 2007;53:766-72 Performed By: #### R ENAL ####[id number] [place] [address] GFR-NON AM. 47 mL/min/1.73m2 Abnormal >60 [facility] Comment on above: Performed By: #### R ENAL ####[id number] [place] [address] Glucose mass conc 202 mg/dL High 74 - 99 [facility] Comment on above: Performed By: #### R ENAL ####[id number] [place] [address] HCO3 molar conc (Bld) 23 mmol/L Normal 21 - 32 [facility] Comment on above: Performed By: #### R ENAL ####[id number] [place] [address] Phosphate mass conc 4.0 mg/dL Normal 2.5 - 4.9 [facility] Comment on above: Result Comment: The performance characteristics of phosphorus testing in heparinized plasma have been validated by the individual laboratory site where testing is performed. Testing on heparinized plasma is not approved by the FDA; however, such approval is not necessary. Performed By: #### R ENAL ####[id number] [place] [address] Potassium molar conc 4.2 mmol/L Normal 3.5 - 5.3 [facility] Comment on above: Performed By: #### R ENAL ####[id number] [place] [address] Sodium molar conc 135 mmol/L Low 136 - 145 [facility] Comment on above: Performed By: #### R ENAL ####[id number] [place] [address] Urea nitrogen mass conc 22 mg/dL Normal 6 - 23 [facility] Comment on above: Performed By: #### R ENAL ####[id number] [id number] Clinical Event Note-Revaluat ion of PEon 03-27-2018 [...] 07:25 by Princess Garnica ( (Fellow)) Normal [facility] Daily Progress Note-Cardiolo kathy 03-27-2018 Protein mass conc Service: Cardiology Subjective Data:DON ELKINS is a 67 year old Male who is Hospital Day # 10. Additional Information:Patient feeling well. Out of bed and ambulating. No CP or SOB. Cont heparingtt. - plan for OR Wednesday 03/28- will draw hypercoagulable labs- increase lispro to 10units TID AC Objective Data: Objective Information: T SLHHVeG5Iraow34.47199610/8494% Date/Time03/27 8: 8: 8: 8: 8:05Range(35.7C - 36.4C ) (73 - 78 ) (18 - 21 ) (122 - 152 )/ (78 - 84 ) (94%- 97% ) Qafxfeq23/9 4:54: Weight in kg (Weight (kg)) 12172/9 4:54: Weight in lbs ((lbs)) 236 Physical Exam: Constitutional: Resting in bed, NADHead/Neck: No JVDRespiratory/Thorax: CTABCardiovascular: RRR, S1 A3Otdbhkxrxefvxzch: soft, NT/NDExtremities: No LE edemaNeurological: alert and oriented v3Lpxsvtwcvxdvw: Appropriate mood and behaviorSkin: psoriasis plaque over [...] Bolus) Injectable: 4000 unit(s) IntraVenous Push Every 7Jfqfx6. Hydrocortisone: 10 mg Oral 9. Hydrocortisone: 5 mg Oral 10. Hydrocortisone: 2.5 mg Oral 11. Insulin Glargine (Lantus) Injectable: 30 unit(s) SubCutaneous Every 84Hzusx98. Insulin Lispro (HumaLOG) Injectable: 8 unit(s) SubCutaneous 3 Times aDay Before Meals13. Insulin Lispro Mild Corrective Scale: unit(s) SubCutaneous 3 Times a DayBefore Meals14. Levothyroxine: 150 microgram(s) Oral Daily15. Mupirocin 2%: 0.5 application(s) Each Nostril 2 Times a Day16. Pantoprazole: 40 mg Oral Daily17. rOPINIRole: 6 mg Oral 18. Sodium Chloride 0.65% Nasal [place]: 2 spray(s) Each Nostril 2 Times aDay PRN Medications -- 1. Dextrose 50% in Water Injectable: 25 gram(s) IntraVenous Push Every 37Smktxnj1. Glucagon Injectable: 1 mg IntraMuscular Every 15 Minutes3. Polyethylene Glycol: 17 gram(s) Oral Daily Currently Suspended Medications -- 1. Chlorhexidine Gluconate 4% Topical: 1 application(s) Topical Once Recent Lab Results: Results: I have reviewed these laboratory results: Glucose_POCT Trending View Ccjjck55-Gkd-3384 08:02:00 26-Mar-2018 21:14:00 26-Mar-2018 19:41:00 26-Mar-2018 15:43:00 26-Mar-2018 12:28:00 26-Mar-2018 07:27:00Glucose-EWIS183 H 302 H 237 H 256 H 285 H 154 H Complete Blood Count Trending View Jebpkw49-Zjm-7183 16:27:00 26-Mar-2018 00:38:00White Blood Cell Count8.0 8.2Nucleated Erythrocyte Count0.0 0.0Red Blood Cell Count4.47 L 4.36 LHGB14.1 13.5HCT41.0 39.6 LMCV92 01JWAK58.4 34.8MKI903 211RDW-CV12.8 12.9 Renal Function Panel Trending View Xnckax26-Peq-6320 16:27:00 26-Mar-2018 00:38:00Glucose, Lgokr199 H 153 NWL463 138K4.6 4.2IA020 102Bicarbonate, Serum25 24Anion Gap, Serum16 22RNM67 74IUXZZ6.46 H 1.40 HGFR-Non Ewmoazjo91 A 50 AGFR- Opwzjhyq81 A 61Calcium, Serum9.4 9.3Phosphorus, Serum4.2 4.8ALB4.0 3.9 Heparin assay, UFH Trending View Ndrlem35-Urf-2418 16:27:00 26-Mar-2018 00:39:00Heparin assay, UFH0.3 0.4 Radiology [...] and may make absolute Segmental Limb Pressures (FLEXOGRAPHIC PRESS HELPER) unreliable.Triphasic flow is noted in the left dorsalis pedis artery, left posteriortibial artery and left common femoral artery. VASC LAB PVR (Arterial Physiologic) BROOKS [Mar 25 2018 7:15PM] Assessment and Plan:Assessment:67 yo M with HTN, DLD, T2DM, Addisson's, GERD, prostate ca s/p prostatectomy [id number], hypothyroidism, psoriasis, and most recently diagnosed with a PE andmultivessel CAD transferred to cardiology at [facility] from [facility] 03/18 for CABG eval. Multiple PEs- addison. 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 Objective Data: Objective Information:T QMGQEcU6Npwcb42.07331267/7795% Date/Time03/27 15: 15: 15: 15: 15:43Range(35.9C - [...] Bolus) Injectable: 4000 unit(s) IntraVenous Push Every 6Rrugi5. Hydrocortisone: 10 mg Oral 9. Hydrocortisone: 5 mg Oral 10. Hydrocortisone: 2.5 mg Oral 11. Insulin Glargine (Lantus) Injectable: 30 unit(s) SubCutaneous Every 84Jpklp25. Insulin Lispro (HumaLOG) Injectable: 10 unit(s) SubCutaneous 3 Times aDay Before Meals13. Insulin Lispro Mild Corrective Scale: unit(s) SubCutaneous 3 Times a DayBefore Meals14. Levothyroxine: 150 microgram(s) Oral Daily15. Mupirocin 2%: 0.5 application(s) Each Nostril 2 Times a Day16. Pantoprazole: 40 mg Oral Daily17. rOPINIRole: 6 mg Oral 18. Sodium Chloride 0.65% Nasal [place]: 2 spray(s) Each Nostril 2 Times aDay PRN Medications -- 1. Dextrose 50% in Water Injectable: 25 gram(s) IntraVenous Push Every 13Wmnoput1. Glucagon Injectable: 1 mg IntraMuscular Every 15 Minutes3. Polyethylene Glycol: 17 gram(s) Oral Daily Currently Suspended Medications -- 1. Chlorhexidine Gluconate 4% Topical: 1 application(s) Topical Once Recent Lab Results: Results: I have reviewed these laboratory results: Glucose_POCT Trending View Kjklru27-Shi-8718 16:33:00 27-Mar-2018 12:54:00 27-Mar-2018 08:02:00 26-Mar-2018 21:14:00 26-Mar-2018 19:41:00 26-Mar-2018 15:43:00 30-Lfy-673237:28:00 26-Mar-2018 07:27:00 25-Mar-2018 21:21:00Glucose-QMQP220 H 229 H 152 H 302 H 237 H 256 H 285H 154 H 181 H Renal Function Panel Trending View Dkfblg51-Kot-8126 16:27:00 26-Mar-2018 00:38:00Glucose, Kgmgd250 H 153 XCC300 138K4.6 4.3YQ519 102Bicarbonate, Serum25 24Anion Gap, Serum16 00ERH70 95ZHVUU4.46 H 1.40 HGFR-Non Soiuroza78 A 50 AGFR- Cspotrst57 A 61Calcium, Serum9.4 9.3Phosphorus, Serum4.2 4.8ALB4.0 3.9 Assessment and Plan:Assessment: Mr. Elkins is a 67 yo WM with no known history of CAD, who has a past medicalhistory of HTN, HLD, T2DM, Bunn's disease, hypothyroidism, COPD, AKASH onCPAP, prostate ca s/p prostatectomy in 2011, and psoriasis who was transferredto HHVI service at [facility] from [facility] on 03/18 forIABG marshall.Endocrine consulted fr evaluation of Bunn disease and treatment periop Patient was on supra-therapeutic dose of HCT 20-0-20 , fludrocortisone 0.1 ,mgdailyPatient has uncontrolled HTN and uncontrolled BSMost likely tomorrow (03/23) IVC filter placement Recommendations:1. Brigida's Disease-- Fludrocortisone 0.05 mg 4 times weekly ( and friday)-- Continue Hydrocortisone to 10-5-2.5 mg at 0dv-73cw-9wz DAILY as of tomorrow -On the day [...] protocol--Diabetic diet--will follow Please page with questions [phone] Patient seen and examined, plan discussed with [...] patient (as noted in the above attestation) [id number] Electronic Signatures:Starr Quevedo) (Signed 31-Mar-2018 10:05)Authored: Signature/Cosignature/Attestat ionCo-Signer: Service, Subjective Data, Objective Data, Assessment and Plan,Signature/Cosignature/Att estationHasmukh Stephenson (Resident)) (Signed 27-Mar-2018 17:17)Authored: Service, Subjective Data, Objective Data, Assessment and Plan,Signature/Cosignature/Att estation Last Updated: 31-Mar-2018 10:05 by Starr Quevedo) Normal [facility] GLUCOSE-POCTon 03-27-2018 Glucose mass conc 287 mg/dL High 74 - 99 [facility] Comment on above: Performed By: #### G BECKY ####[id number] [place] [address] Glucose mass conc 229 mg/dL High 74 - 99 [facility] Comment on above: Performed By: #### G BECKY ####[id number] [place] [address] Glucose mass conc 152 mg/dL High 74 - 99 [facility] Comment on above: Performed By: #### G BECKY ####[id number] [place] [address] HEPARIN ASSAY,UFHon 03-27-20 18 HEPARIN ASSAY,UFH 0.4 IU/mL Normal [facility] Comment on above: Result Comment: The therapeutic reference range for UFH may be either 0.3-0.6 IU/mL or 0.3-0.7 IU/mL based on the clinical setting for anticoagulant therapy and the associated nomogram used. For heparin dosing guidelines based on clinical scenario and Heparin Assay results, please refer to local Pharmacy and the [facility] Guidelines for Anticoagulation therapy available on the [facility] intranet at:[email or web address] Performed By: #### H AUF ####[id number] [place] [address] CBCon 03-26-2018 Erythrocyte distribution width Auto Ratio (RBC) 12.8 % Normal 11.5 - 14.5 [facility] Comment on above: Performed By: #### C BC ####[id number] [place] [address] Hematocrit Auto Volume Fraction (Bld) 41.0 % Normal 41.0 - 52.0 [facility] Comment on above: Performed By: #### C BC ####[id number] [place] [address] Hemoglobin mass conc (Bld) 14.1 g/dL Normal 13.5 - 17.5 [facility] Comment on above: Performed By: #### C BC ####[id number] [place] [address] MCHC Auto mass conc (RBC) 34.4 g/dL Normal 32.0 - 36.0 [facility] Comment on above: Performed By: #### C BC ####[id number] [place] [address] MCV Auto Entitic volume (RBC) 92 fL Normal 80 - 100 [facility] Comment on above: Performed By: #### C BC ####[id number] [place] [address] Nucleated RBC/100 WBC Ratio (Bld) 0.0 /100 WBC Normal 0.0-0.0 [facility] Comment on above: Performed By: #### C BC ####[id number] [place] [address] Platelets Auto #/vol (Bld) 231 10*3/uL Normal 150 - 450 [facility] Comment on above: Performed By: #### C BC ####[id number] [place] [address] RBC Auto #/vol (Bld) 4.47 x10E12/L Low 4.50 - 5.90 [facility] Comment on above: Performed By: #### C BC ####[id number] [place] [address] WBC Auto #/vol (Bld) 8.0 10*3/uL Normal 4.4 - 11.3 [facility] Comment on above: Performed By: #### C BC ####[id number] [place] [address] Erythrocyte distribution width Auto Ratio (RBC) 12.9 % Normal 11.5 - 14.5 [facility] Comment on above: Performed By: #### C BC ####[id number] [place] [address] Hematocrit Auto Volume Fraction (Bld) 39.6 % Low 41.0 - 52.0 [facility] Comment on above: Performed By: #### C BC ####[id number] [place] [address] Hemoglobin mass conc (Bld) 13.5 g/dL Normal 13.5 - 17.5 [facility] Comment on above: Performed By: #### C BC ####[id number] [place] [address] MCHC Auto mass conc (RBC) 34.1 g/dL Normal 32.0 - 36.0 [facility] Comment on above: Performed By: #### C BC ####[id number] [place] [address] MCV Auto Entitic volume (RBC) 91 fL Normal 80 - 100 [facility] Comment on above: Performed By: #### C BC ####[id number] [place] [address] Nucleated RBC/100 WBC Ratio (Bld) 0.0 /100 WBC Normal 0.0-0.0 [facility] Comment on above: Performed By: #### C BC ####[id number] [place] [address] Platelets Auto #/vol (Bld) 211 10*3/uL Normal 150 - 450 [facility] Comment on above: Performed By: #### C BC ####[id number] [place] [address] RBC Auto #/vol (Bld) 4.36 x10E12/L Low 4.50 - 5.90 [facility] Comment on above: Performed By: #### C BC ####[id number] [place] [address] WBC Auto #/vol (Bld) 8.2 10*3/uL Normal 4.4 - 11.3 [facility] Comment on above: Performed By: #### C BC ####[id number] [place] [address] Consulton 03-26-2018 Consult Allergies: No Known Allergies: [...] 06-Apr-2018 17:31 by Amador Joel (DDS) Normal [facility] Daily Progress Note-Cardiac Surgeryon 03-26-2018 Protein mass conc Service: Cardiac Iris dane Subjective Data:DON ELKINS is a 67 year old Male who is Hospital Day # 9. Objective Data: Objective Information: T NAIDYiI2Fwbln43.64788758/8195% Date/Time03/26 11: 11: 11: 11: 11:45Range(35.9C - 36.8C ) (67 - 75 ) (17 - 18 ) (124 - 173 )/ (77 - 84 ) (95%- 97% ) Pain with Activity reported at 03/26 15:37: 0Pain at Rest reported at 03/26 15:37: 0 Fihgjnz33/8 3:38: Weight in kg (Weight (kg)) 107. [...] Bolus) Injectable: 4000 unit(s) IntraVenous Push Every 7Zgknk1. Hydrocortisone: 10 mg Oral 9. Hydrocortisone: 5 mg Oral 10. Hydrocortisone: 2.5 mg Oral 11. Insulin Glargine (Lantus) Injectable: 30 unit(s) SubCutaneous Every 67Rmkpo12. Insulin Lispro (HumaLOG) Injectable: 8 unit(s) SubCutaneous 3 Times aDay Before Meals13. Insulin Lispro Mild Corrective Scale: unit(s) SubCutaneous 3 Times a DayBefore Meals14. Levothyroxine: 150 microgram(s) Oral Daily15. Mupirocin 2%: 0.5 application(s) Each Nostril 2 Times a Day16. Pantoprazole: 40 mg Oral Daily17. Polyethylene Glycol: 17 gram(s) Oral Daily18. rOPINIRole: 6 mg Oral 19. Sodium Chloride 0.65% Nasal [place]: 2 spray(s) Each Nostril 2 Times aDay PRN Medications -- 1. Dextrose 50% in Water Injectable: 25 gram(s) IntraVenous Push Every 50Pxzdrkb2. Glucagon Injectable: 1 mg IntraMuscular Every 15 Minutes Currently Suspended Medications -- 1. Chlorhexidine Gluconate 4% Topical: 1 application(s) Topical Once Recent Lab Results: Results: I have reviewed these laboratory results: Glucose_POCT Trending View Ybcqrr47-Hjb-1785 12:28:00 26-Mar-2018 07:27:00Glucose-RFQZ369 H 154 H Heparin assay, UFH 26-Mar-2018 [...] appear normal. Incompletepalmar arch with good collaterals. [facility] PVR (Arterial Physiologic) BROOKS [Mar 25 [...] and may make absolute Segmental Limb Pressures (FLEXOGRAPHIC PRESS HELPER) unreliable.Triphasic flow is noted in the left [...] A4C: 17.4cm2LA Area A2C: 14.2 cm2LA Major Barry A4C: 6.0 cmLA Major Barry A2C: 4.7 cmLA Volume Index: 15.2 ml/m2RA VOLUME BY A/L METHOD: Normal Ranges:RA Area A4C: 12.8 oy4H-URDR MEASUREMENTS: Normal Ranges:Ao Root: 2.90 cm (2.0-3.7cm)LAs: [...] a past medical history of HTN,HLD, T2DM, Bunn's disease, hypothyroidism, COPD, AKASH on CPAP, prostate spring/p prostatectomy in 2011, and psoriasis [facility] from [facility] on 03/18 for CABG eval. [place] and dysp[place]. He as found to havebilat PEs, was started on Heparin gtt, and transferred to [facility]. He wasfound to have a troponin leak at 2.25. Cardiology was consulted and the patientwas diagnosed with ACS, NSTEMI. He underwent a TTE and cath. He had normal EF,mild AI, and triple vessel CAD so was transferred to [facility] for CABG eval. Cardiac surgery consulted 03/19 [...] clinically Signature/Cosignature/Attestat ion:Provider/Team Contact Info-Pager Numbercardiac surgery [phone] Electronic Signatures:Alexandra Milligan (PAC) (Signed 26-Mar-2018 16:11)Authored: Service, Subjective Data, Objective Data, Assessment and Plan,Signature/Cosignature/Att estation Last Updated: 26-Mar-2018 16:11 by Alexandra Milligan (PAC) Normal [facility] Daily Progress Note-Cardiolo augustinon 03-26-2018 Protein mass conc Service: Cardiology Subjective Data:DON ELKINS is a 67 year old Male who is Hospital Day # 9. Additional Information:No changes in plan today, awaiting OR Friday. cont heparin gtt. No changes perEndo recs. - no changes Objective Data: Objective Information: T OPLHQtI4Ekjhl27.71194180/8195% Date/Time03/26 11: 11: 11: 11: 11:45Range(35.9C - 36.8C ) (67 - 75 ) (17 - 18 ) (124 - 173 )/ (77 - 84 ) (95%- 97% ) Zryxpsd92 3:38: Weight in kg (Weight (kg)) 107.211/ 3:38: Weight in lbs ((lbs)) 236.3 Physical Exam: Constitutional: Resting in bed, NADHead/Neck: No JVDRespiratory/Thorax: CTABCardiovascular: RRR, S1 S7Uvfjkpueuqqbckov: soft, NT/NDExtremities: No LE edemaNeurological: alert and oriented j9Uvbqgyktzjcde: Appropriate mood and behaviorSkin: psoriasis plaque over [...] Bolus) Injectable: 4000 unit(s) IntraVenous Push Every 1Lhcbs2. Hydrocortisone: 10 mg Oral 9. Hydrocortisone: 5 mg Oral 10. Hydrocortisone: 2.5 mg Oral 11. Insulin Glargine (Lantus) Injectable: 30 unit(s) SubCutaneous Every 22Qtevi87. Insulin Lispro (HumaLOG) Injectable: 8 unit(s) SubCutaneous 3 Times aDay Before Meals13. Insulin Lispro Mild Corrective Scale: unit(s) SubCutaneous 3 Times a DayBefore Meals14. Levothyroxine: 150 microgram(s) Oral Daily15. Mupirocin 2%: 0.5 application(s) Each Nostril 2 Times a Day16. Pantoprazole: 40 mg Oral Daily17. Polyethylene Glycol: 17 gram(s) Oral Daily18. rOPINIRole: 6 mg Oral 19. Sodium Chloride 0.65% Nasal [place]: 2 spray(s) Each Nostril 2 Times aDay PRN Medications -- 1. Dextrose 50% in Water Injectable: 25 gram(s) IntraVenous Push Every 96Aghqbdi5. Glucagon Injectable: 1 mg IntraMuscular Every 15 Minutes Currently Suspended Medications -- 1. Chlorhexidine Gluconate 4% Topical: 1 application(s) Topical Once Recent Lab Results: Results: I have reviewed these laboratory results: Glucose_POCT Trending View [id number]-Imm-2733 12:28:00 26-Mar-2018 07:27:00 25-Mar-2018 21:21:00 25-Mar-2018 16:15:00 25-Mar-2018 11:19:00 25-Mar-2018 07:47:00Glucose-DJNZ532 H 154 H 181 H 306 H 291 H 163 H Heparin assay, UFH Trending View [id number]-Mli-4050 00:39:00 25-Mar-2018 07:31:00Heparin assay, UFH0.4 0.4 Complete [...] and may make absolute Segmental Limb Pressures (FLEXOGRAPHIC PRESS HELPER) unreliable.Triphasic flow is noted in the left dorsalis pedis artery, left posteriortibial artery and left common femoral artery. VASC LAB PVR (Arterial Physiologic) BROOKS [Mar 25 2018 7:15PM] Assessment and Plan:Assessment:67 yo M with HTN, DLD, T2DM, Addisson's, GERD, prostate ca s/p prostatectomy [id number], hypothyroidism, psoriasis, and most recently diagnosed with a PE andmultivessel CAD transferred to cardiology at [facility] from [facility] 03/18 for CABG eval. Multiple PEs- addison. 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 Arteaga Signature/Cosignature/Attestat ion:Provider/Team Contact Info-Pager [phone] Only - Shared Visit with Advanced Practice ProviderThis is a sharedvisit. I have reviewed the Advanced Practice Providers encounter note,approve the Advanced Practice Providers documentation, and provide thefollowing additional information from my personal encounter.Comments/ Additional FindingsContinue heparin gtt.Await CABG next week. Electronic Signatures:Leonel Arteaga) (Signed 28-Mar-2018 19:47)Authored: Signature/Cosignature/Attestat ionCo-Signer: Service, Subjective Data, Objective Data, Assessment and Plan,Signature/Cosignature/Att estationKate Ayala (INSTRUCTOR GROUND SERVICES-PAPER SLITTER) (Signed 26-Mar-2018 16:20)Authored: Service, Subjective Data, Objective Data, Assessment and Plan,Signature/Cosignature/Att estation Last Updated: 28-Mar-2018 19:47 by Leonel Arteaga) [facility] Daily Progress Note-Endocrin ologyon 03-26-2018 Protein mass conc Service: Endocrinolo gy Subjective Data:DON ELKINS is a 67 year old Male who is Hospital Day # 9. Objective Data: Objective Information:T IXDKVqO9Zupdh32.76760094/8195% Date/Time03/26 11: 11: 11: 11: 11:45Range(35.9C - [...] a past medicalhistory of HTN, HLD, T2DM, Bunn's disease, hypothyroidism, COPD, AKASH onCPAP, prostate ca s/p prostatectomy in 2011, and psoriasis who was transferredto [facility]VI service at [facility] from [facility] on 03/18 forCABG youngal.Endocrine consulted fr evaluation of Bunn disease and treatment periop Patient was on supra-therapeutic dose of HCT 20-0-20 , fludrocortisone 0.1 ,mgdailyPatient has uncontrolled HTN and uncontrolled BSMost likely tomorrow (03/23) IVC filter placement Recommendations:1. Bunn's Disease-- Fludrocortisone 0.05 mg 4 times weekly ( and friday)-- Continue Hydrocortisone to 10-5-2.5 mg at 1wp-36ux-3dv DAILY as of tomorrow -On the day [...] protocol--Diabetic diet--will follow Please page with questions [phone] Patient seen and examined, plan discussed with [...] patient (as noted in the above attestation) [id number] Electronic Signatures:Starr Quevedo) (Signed 28-Mar-2018 09:07)Authored: Service, Signature/Cosignature/Attestat ionCo-Signer: Subjective Data, Objective Data, Assessment and Plan,Signature/Cosignature/Att Hasmukh Gabriel (Resident)) (Signed 26-Mar-2018 11:56)Authored: Subjective Data, Objective Data, Assessment and Plan,Signature/Cosignature/Att estation Last Updated: 28-Mar-2018 09:07 by Starr Quevedo) Normal [facility] GLUCOSE-POCTon 03-26-2018 Glucose mass conc 302 mg/dL High 74 - 99 [facility] Comment on above: Performed By: #### G BECKY ####[id number] [place] [address] Glucose mass conc 237 mg/dL High 74 - 99 [facility] Comment on above: Performed By: #### G BECKY ####[id number] [place] [address] Glucose mass conc 256 mg/dL High 74 - 99 [facility] Comment on above: Performed By: #### G BECKY ####[id number] [place] [address] Glucose mass conc 285 mg/dL High 74 - 99 [facility] Comment on above: Performed By: #### G BECKY ####[id number] [place] [address] Glucose mass conc 154 mg/dL High 74 - 99 [facility] Comment on above: Performed By: #### G BECKY ####[id number] [place] [address] HEPARIN ASSAY,UFHon 03-26-20 18 HEPARIN ASSAY,UFH 0.3 IU/mL Normal [facility] Comment on above: Result Comment: The therapeutic reference range for UFH may be either 0.3-0.6 IU/mL or 0.3-0.7 IU/mL based on the clinical setting for anticoagulant therapy and the associated nomogram used. For heparin dosing guidelines based on clinical scenario and Heparin Assay results, please refer to local Pharmacy and the [facility] Guidelines for Anticoagulation therapy available on the [facility] intranet at:[email or web address]_Guidelines_[email or web address].aspx Performed By: #### H AUF ####[id number] [place] [address] HEPARIN ASSAY,UFH 0.4 IU/mL Normal [facility] Comment on above: Result Comment: The therapeutic reference range for UFH may be either 0.3-0.6 IU/mL or 0.3-0.7 IU/mL based on the clinical setting for anticoagulant therapy and the associated nomogram used. For heparin dosing guidelines based on clinical scenario and Heparin Assay results, please refer to local Pharmacy and the [facility] Guidelines for Anticoagulation therapy available on the [facility] intranet at:[email or web address]_Guidelines_[email or web address].aspx Performed By: #### H AUF ####[id number] [place] [address] PLATELETSon 03-26-2018 Platelets Auto #/vol (Bld) ORDER RECD Normal [facility] Comment on above: Result Comment: If t his patient is Rh Negative and if the Plateletproduct transfused is Rh Positive, review the useof WinRho Prophylaxis for this patient. Performed By: #### P LT ####[id number] [place] [address] RENAL FUNCTION PANELon 03-26 Albumin mass conc 4.0 g/dL Normal 3.4 - 5.0 [facility] Comment on above: Performed By: #### R ENAL ####[id number] [place] [address] Anion gap 3 molar conc 16 mmol/L Normal 10 - 20 [facility] Comment on above: Performed By: #### R ENAL ####[id number] [place] [address] Calcium mass conc 9.4 mg/dL Normal 8.6 - 10.6 [facility] Comment on above: Performed By: #### R ENAL ####[id number] [place] [address] Chloride molar conc 100 mmol/L Normal 98 - 107 [facility] Comment on above: Performed By: #### R ENAL ####[id number] [place] [address] Creatinine mass conc 1.46 mg/dL High 0.50 - 1.30 [facility] Comment on above: Performed By: #### R ENAL ####[id number] [place] [address] GFR- AM. 58 mL/min/1.73m2 Abnormal >60 [facility] Comment on above: Result Comment: CALC ULATIONS OF ESTIMATED GFR ARE PERFORMED USING THE MDRD STUDY EQUATION FOR THE IDMS-TRACEABLE CREATININE METHODS. CLIN CHEM 2007;53:766-72 Performed By: #### R ENAL ####[id number] [place] [address] GFR-NON AM. 48 mL/min/1.73m2 Abnormal >60 [facility] Comment on above: Performed By: #### R ENAL ####[id number] [place] [address] Glucose mass conc 231 mg/dL High 74 - 99 [facility] Comment on above: Performed By: #### R ENAL ####[id number] [place] [address] HCO3 molar conc (Bld) 25 mmol/L Normal 21 - 32 [facility] Comment on above: Performed By: #### R ENAL ####[id number] [place] [address] Phosphate mass conc 4.2 mg/dL Normal 2.5 - 4.9 [facility] Comment on above: Result Comment: The performance characteristics of phosphorus testing in heparinized plasma have been validated by the individual laboratory site where testing is performed. Testing on heparinized plasma is not approved by the FDA; however, such approval is not necessary. Performed By: #### R ENAL ####[id number] [place] [address] Potassium molar conc 4.6 mmol/L Normal 3.5 - 5.3 [facility] Comment on above: Performed By: #### R ENAL ####[id number] [place] [address] Sodium molar conc 136 mmol/L Normal 136 - 145 [facility] Comment on above: Performed By: #### R ENAL ####[id number] [place] [address] Urea nitrogen mass conc 21 mg/dL Normal 6 - 23 [facility] Comment on above: Performed By: #### R ENAL ####[id number] [place] [address] Albumin mass conc 3.9 g/dL Normal 3.4 - 5.0 [facility] Comment on above: Performed By: #### R ENAL ####[id number] [place] [address] Anion gap 3 molar conc 16 mmol/L Normal 10 - 20 [facility] Comment on above: Performed By: #### R ENAL ####[id number] [place] [address] Calcium mass conc 9.3 mg/dL Normal 8.6 - 10.6 [facility] Comment on above: Performed By: #### R ENAL ####[id number] [place] [address] Chloride molar conc 102 mmol/L Normal 98 - 107 [facility] Comment on above: Performed By: #### R ENAL ####[id number] [place] [address] Creatinine mass conc 1.40 mg/dL High 0.50 - 1.30 [facility] Comment on above: Performed By: #### R ENAL ####[id number] [place] [address] GFR- AM. 61 mL/min/1.73m2 Normal >60 [facility] Comment on above: Result Comment: CALC ULATIONS OF ESTIMATED GFR ARE PERFORMED USING THE MDRD STUDY EQUATION FOR THE IDMS-TRACEABLE CREATININE METHODS. CLIN CHEM 2007;53:766-72 Performed By: #### R ENAL ####[id number] [place] [address] GFR-NON AM. 50 mL/min/1.73m2 Abnormal >60 [facility] Comment on above: Performed By: #### R ENAL ####[id number] [place] [address] Glucose mass conc 153 mg/dL High 74 - 99 [facility] Comment on above: Performed By: #### R ENAL ####[id number] [place] [address] HCO3 molar conc (Bld) 24 mmol/L Normal 21 - 32 [facility] Comment on above: Performed By: #### R ENAL ####[id number] [place] [address] Phosphate mass conc 4.8 mg/dL Normal 2.5 - 4.9 [facility] Comment on above: Result Comment: The performance characteristics of phosphorus testing in heparinized plasma have been validated by the individual laboratory site where testing is performed. Testing on heparinized plasma is not approved by the FDA; however, such approval is not necessary. Performed By: #### R ENAL ####[id number] [place] [address] Potassium molar conc 4.3 mmol/L Normal 3.5 - 5.3 [facility] Comment on above: Performed By: #### R ENAL ####[id number] [place] [address] Sodium molar conc 138 mmol/L Normal 136 - 145 [facility] Comment on above: Performed By: #### R ENAL ####[id number] [place] [address] Urea nitrogen mass conc 22 mg/dL Normal 6 - 23 [facility] Comment on above: Performed By: #### R ENAL ####[id number] [place] [address] REQUEST-LEUKOREDUCED RED HERI LSon 03-26-2018 REQUEST-LEUKOREDU TATUM RED CELLS ORDER RECD Normal [facility] Comment on above: Performed By: #### O MISSILE TRACKING TECHNICIAN ####[id number] [place] [address] STAPH/MRSA SCREENon 03-26-20 18 STAPH/MRSA SCREEN TEST STAPH/MRSA SCRE EN WAS CANCELLED, 03/26/2018 17:39 ?Cancel Reason: Discontinued.PATIENT: DON ELKINS LOCATION: [facility] Q02QRTC#: [id number] : 50 AGE: SEX: M ORDERED BY: MONI MILLIGAN: ANTERIOR NARES COLLECTED: 03/26/18 17:39ANTIBIOTICS AT JIMENA.: RECEIVED : SITE: NARES R E S U L T S STAPH/MRSA SCREEN CANCELLED 03/26/18 17:55 Normal [facility] Comment on above: Performed By: #### S TAPH ####[id number] [place] [address] CBCon 03-25-2018 Erythrocyte distribution width Auto Ratio (RBC) 13.0 % Normal 11.5 - 14.5 [facility] Comment on above: Performed By: #### G BECKY ####[id number] [place] [address] Hematocrit Auto Volume Fraction (Bld) 38.4 % Low 41.0 - 52.0 [facility] Comment on above: Performed By: #### G BECKY ####[id number] [place] [address] Hemoglobin mass conc (Bld) 12.9 g/dL Low 13.5 - 17.5 [facility] Comment on above: Performed By: #### G BECKY ####[id number] [place] [address] MCHC Auto mass conc (RBC) 33.6 g/dL Normal 32.0 - 36.0 [facility] Comment on above: Performed By: #### G BECKY ####[id number] [place] [address] MCV Auto Entitic volume (RBC) 94 fL Normal 80 - 100 [facility] Comment on above: Performed By: #### G BECKY ####[id number] [place] [address] Nucleated RBC/100 WBC Ratio (Bld) 0.0 /100 WBC Normal 0.0-0.0 [facility] Comment on above: Performed By: #### G BECKY ####[id number] [place] [address] Platelets Auto #/vol (Bld) 219 10*3/uL Normal 150 - 450 [facility] Comment on above: Performed By: #### G BECKY ####[id number] [place] [address] RBC Auto #/vol (Bld) 4.10 x10E12/L Low 4.50 - 5.90 [facility] Comment on above: Performed By: #### G BECKY ####[id number] [place] [address] WBC Auto #/vol (Bld) 8.2 10*3/uL Normal 4.4 - 11.3 [facility] Comment on above: Performed By: #### G BECKY ####[id number] [place] [address] Daily Progress Note-Cardiosandra chavez 03-25-2018 Protein mass conc Service: Cardiology Subjective Data:DON ELKINS is a 67 year old Male who is Hospital Day # 8. Additional Information:BP remains of 130s-150s/60-80s, BS improved to 160s this AM - c/w Heparin gtt- c/w Lantus 25 units daily and Lispro 6 units before meals- Plan for CABG next week Objective Data: Objective Information:T IUBPQcH3Cmlmb87.27469340/8497% Date/Time03/25 8: 8: 8: 8: 8:13Range(35.8C - 36.8C ) (68 - 86 ) (16 - 18 ) (128 - 166 )/ (80 - 85 ) (96%- 98% ) Pain with Activity reported at 03/25 0:10: 0Pain at Rest reported at 03/25 0:10: 0 Hbhuyeg06/7 3:46: Weight in kg (Weight (kg)) 107.911 3:46: Weight in lbs ((lbs)) 237.8 Physical Exam: Constitutional: Resting in bed, NADHead/Neck: No JVDRespiratory/Thorax: CTABCardiovascular: RRR, S1 B3Wmodsmykwxfcchkj: soft, NT/NDExtremities: No edemaNeurological: alert and oriented t9Vhtkdyhumevwy: Appropriate mood and behaviorSkin: psoriasis plaque over [...] Bolus) Injectable: 4000 unit(s) IntraVenous Push Every 5Omswm7. Hydrocortisone: 10 mg Oral 9. Hydrocortisone: 5 mg Oral 10. Hydrocortisone: 2.5 mg Oral 11. Insulin Glargine (Lantus) Injectable: 25 unit(s) SubCutaneous Every 74Kkohz85. Insulin Lispro (HumaLOG) Injectable: 6 unit(s) SubCutaneous 3 Times aDay Before Meals13. Insulin Lispro Mild Corrective Scale: unit(s) SubCutaneous 3 Times a DayBefore Meals14. Levothyroxine: 150 microgram(s) Oral Daily15. Pantoprazole: 40 mg Oral Daily16. Polyethylene Glycol: 17 gram(s) Oral Daily17. rOPINIRole: 6 mg Oral 18. Sodium Chloride 0.65% Nasal [place]: 2 spray(s) Each Nostril 2 Times aDay PRN Medications -- 1. Dextrose 50% in Water Injectable: 25 gram(s) IntraVenous Push Every 08Eycsrku0. Glucagon Injectable: 1 mg IntraMuscular Every 15 Minutes Currently Suspended Medications -- 1. Chlorhexidine Gluconate 4% Topical: 1 application(s) Topical Once Recent Lab Results: Results: I have reviewed these laboratory results: Glucose_POCT Trending View Arvjhu75-Mdv-4065 11:19:00 25-Mar-2018 07:47:00Glucose-CYVO209 H 163 H Heparin assay, UFH 25-Mar-2018 [...] T2DM, Addisson's, GERD, prostate ca s/p prostatectomy [id number], hypothyroidism, psoriasis, and most recently diagnosed with a PE andmultivessel CAD transferred to medicine at [facility] from [facility] on03/18 for CABG eval. 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 Electronic Signatures:Vito Patino (INSTRUCTOR GROUND SERVICES-PAPER SLITTER) (Signed 25-Mar-2018 16:22)Authored: Service, Subjective Data, Objective Data, Assessment and Plan,Signature/Cosignature/Att estationLeonel Arteaga) (Signed 26-Mar-2018 11:18)Authored: Signature/Cosignature/Attestat ionCo-Signer: Subjective Data, Objective Data, Assessment and Plan,Signature/Cosignature/Att estation Last Updated: 26-Mar-2018 11:18 by Leonel Arteaga) Normal [facility] Daily Progress Note-Endocrin ologyon 03-25-2018 Protein mass conc Consult Type: subseq uent visit/care Service: Endocrinology Subjective Data:DON ELKINS is a 67 year old Male who is Hospital Day # 8. Objective Data: Objective Information:T DTEIIyY7Tvvve92.23868156/7997% Date/Time03/25 16: 16: 16: 16: 16:00Range(35.8C - 36.2C ) (68 - 78 ) (17 - 18 ) (128 - 166 )/ (79 - 86 ) (96%- 97% ) Pain with Activity reported at 03/25 8:00: 0Pain at Rest reported at 03/25 8:00: 0 Hwovarp20/7 3:46: Weight in kg (Weight (kg)) 107.911 [...] reviewed these laboratory results: Glucose_POCT Trending View Habswa69-Hgu-4937 12:46:00 24-Mar-2018 11:46:00 24-Mar-2018 06:54:00 23-Mar-2018 20:50:00 23-Mar-2018 15:44:00 23-Mar-2018 11:37:00 17-Qnp-306490:37:00 22-Mar-2018 21:18:00Glucose-DZZP746 H 262 H 217 H 290 H 228 H 226 H 189H 275 H Basic Metabolic Panel 24-Mar-2018 03:30:00 ResultValueGlucose, Serum 358 HNA 134 LK 4.2CL 103Bicarbonate, Serum 21Anion Gap, Serum 14BUN 26 HCREAT 1.24GFR-Non 58 AGFR- 70Calcium, Serum 9.1 Renal Function Panel Trending View Nctnyr99-Sdn-8439 20:34:00 22-Mar-2018 19:24:00Glucose, Fgjkk003 H 226 FXI365 138K4.2 4.7PU415 102Bicarbonate, Serum24 25Anion Gap, Serum14 72MZH47 24 HCREAT1.23 1.53 HGFR-Non Saqylygq81 A 46 AGFR- Zuhagddj48 56 ACalcium, Serum9.2 9.0Phosphorus, Serum3.9 4.0ALB3.7 3.7 Assessment and Plan:Assessment: Mr. 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 Bunn's Disease-- Fludrocortisone 0.05 mg 4 times weekly ( and friday)-- Continue Hydrocortisone to 10-5-2.5 mg at 6hr-90vr-7tw DAILY as of tomorrow -On the day [...] protocol--Diabetic diet--will follow Please page with questions [phone] Patient seen and examined, plan discussed with Dr Quevedo Signature/Cosignature/Attestat ion:Attending AttngoziI saw and evaluated the patient. I personally obtainedthe ujdge and critical portions of the history and physical exam or wasphysically present for judge and critical portions performed by theresident/fellow. I reviewed the resident/fellows documentation and discussedthe patient with the resident/fellow. I agree with the resident/fellowsmedical decision making as documented in the residents note.I personally evaluated the patient (as noted in the above attestation) [id number]-[id number] Electronic Signatures:Starr Quevedo) (Signed 28-Mar-2018 09:06)Authored: Signature/Cosignature/Attestat ionCo-Signer: Service, Subjective Data, Objective Data, Assessment and Plan,Signature/Cosignature/Att estationHasmukh Stephenson (Resident)) (Signed 25-Mar-2018 19:27)Authored: Service, Subjective Data, Objective Data, Assessment and Plan,Signature/Cosignature/Att estation Last Updated: 28-Mar-2018 09:06 by Starr Quevedo) Normal [facility] GLUCOSE-POCTon 03-25-2018 Glucose mass conc 181 mg/dL High 74 - 99 [facility] Comment on above: Performed By: #### G BECKY ####[id number] [place] [address] Glucose mass conc 306 mg/dL High 74 - 99 [facility] Comment on above: Performed By: #### G BECKY ####[id number] [place] [address] Glucose mass conc 291 mg/dL High 74 - 99 [facility] Comment on above: Performed By: #### G BECKY ####[id number] [place] [address] Glucose mass conc 163 mg/dL High 74 - 99 [facility] Comment on above: Performed By: #### G BECKY ####[id number] [place] [address] HEPARIN ASSAY,UFHon 03-25-20 18 HEPARIN ASSAY,UFH 0.4 IU/mL Normal [facility] Comment on above: Result Comment: The therapeutic reference range for UFH may be either 0.3-0.6 IU/mL or 0.3-0.7 IU/mL based on the clinical setting for anticoagulant therapy and the associated nomogram used. For heparin dosing guidelines based on clinical scenario and Heparin Assay results, please refer to local Pharmacy and the [facility] Guidelines for Anticoagulation therapy available on the [facility] intranet at:[email or web address]/[email or web address]_Guidelines_for_Anticoagu.aspx Performed By: #### G BECKY ####[id number] [place] [address] RENAL FUNCTION PANELon 03-25 Albumin mass conc 3.8 g/dL Normal 3.4 - 5.0 [facility] Comment on above: Performed By: #### G BECKY ####[id number] [place] [address] Anion gap 3 molar conc 12 mmol/L Normal 10 - 20 [facility] Comment on above: Performed By: #### G BECKY ####[id number] [place] [address] Calcium mass conc 9.3 mg/dL Normal 8.6 - 10.6 [facility] Comment on above: Performed By: #### G BECKY ####[id number] [place] [address] Chloride molar conc 103 mmol/L Normal 98 - 107 [facility] Comment on above: Performed By: #### G BECKY ####[id number] [place] [address] Creatinine mass conc 1.52 mg/dL High 0.50 - 1.30 [facility] Comment on above: Performed By: #### G BECKY ####[id number] [place] [address] GFR- AM. 56 mL/min/1.73m2 Abnormal >60 [facility] Comment on above: Result Comment: CALC ULATIONS OF ESTIMATED GFR ARE PERFORMED USING THE MDRD STUDY EQUATION FOR THE IDMS-TRACEABLE CREATININE METHODS. CLIN CHEM 2007;53:766-72 Performed By: #### G BECKY ####[id number] [place] [address] GFR-NON AM. 46 mL/min/1.73m2 Abnormal >60 [facility] Comment on above: Performed By: #### G BECKY ####[id number] [place] [address] Glucose mass conc 246 mg/dL High 74 - 99 [facility] Comment on above: Performed By: #### G BECKY ####[id number] [place] [address] HCO3 molar conc (Bld) 27 mmol/L Normal 21 - 32 [facility] Comment on above: Performed By: #### G BECKY ####[id number] [place] [address] Phosphate mass conc 4.4 mg/dL Normal 2.5 - 4.9 [facility] Comment on above: Result Comment: The performance characteristics of phosphorus testing in heparinized plasma have been validated by the individual laboratory site where testing is performed. Testing on heparinized plasma is not approved by the FDA; however, such approval is not necessary. Performed By: #### G BECKY ####[id number] [place] [address] Potassium molar conc 4.4 mmol/L Normal 3.5 - 5.3 [facility] Comment on above: Performed By: #### G BECKY ####[id number] [place] [address] Sodium molar conc 138 mmol/L Normal 136 - 145 [facility] Comment on above: Performed By: #### G BECKY ####[id number] [place] [address] Urea nitrogen mass conc 26 mg/dL High 6 - 23 [facility] Comment on above: Performed By: #### G BECKY ####[id number] [place] [address] BASIC METABOLIC PANELon 11-0 2018 Anion gap 3 molar conc 14 mmol/L Normal 10 - 20 [facility] Comment on above: Performed By: #### B MP ####[id number] [place] [address] Calcium mass conc 9.1 mg/dL Normal 8.6 - 10.6 [facility] Comment on above: Performed By: #### B MP ####[id number] [place] [address] Chloride molar conc 103 mmol/L Normal 98 - 107 [facility] Comment on above: Performed By: #### B MP ####[id number] [place] [address] Creatinine mass conc 1.24 mg/dL Normal 0.50 - 1.30 [facility] Comment on above: Performed By: #### B MP ####[id number] [place] [address] GFR- AM. 70 mL/min/1.73m2 Normal >60 [facility] Comment on above: Result Comment: CALC ULATIONS OF ESTIMATED GFR ARE PERFORMED USING THE MDRD STUDY EQUATION FOR THE IDMS-TRACEABLE CREATININE METHODS. CLIN CHEM 2007;53:766-72 Performed By: #### B MP ####[id number] [place] [address] GFR-NON AM. 58 mL/min/1.73m2 Abnormal >60 [facility] Comment on above: Performed By: #### B MP ####[id number] [place] [address] Glucose mass conc 358 mg/dL High 74 - 99 [facility] Comment on above: Performed By: #### B MP ####[id number] [place] [address] HCO3 molar conc (Bld) 21 mmol/L Normal 21 - 32 [facility] Comment on above: Performed By: #### B MP ####[id number] [place] [address] Potassium molar conc 4.2 mmol/L Normal 3.5 - 5.3 [facility] Comment on above: Performed By: #### B MP ####[id number] [place] [address] Sodium molar conc 134 mmol/L Low 136 - 145 [facility] Comment on above: Performed By: #### B MP ####[id number] [place] [address] Urea nitrogen mass conc 26 mg/dL High 6 - 23 [facility] Comment on above: Performed By: #### B MP ####[id number] [place] [address] CBCon 03-24-2018 Erythrocyte distribution width Auto Ratio (RBC) 12.9 % Normal 11.5 - 14.5 [facility] Comment on above: Performed By: #### C BC ####[id number] [place] [address] Hematocrit Auto Volume Fraction (Bld) 40.0 % Low 41.0 - 52.0 [facility] Comment on above: Performed By: #### C BC ####[id number] [place] [address] Hemoglobin mass conc (Bld) 13.4 g/dL Low 13.5 - 17.5 [facility] Comment on above: Performed By: #### C BC ####[id number] [place] [address] MCHC Auto mass conc (RBC) 33.5 g/dL Normal 32.0 - 36.0 [facility] Comment on above: Performed By: #### C BC ####[id number] [place] [address] MCV Auto Entitic volume (RBC) 92 fL Normal 80 - 100 [facility] Comment on above: Performed By: #### C BC ####[id number] [place] [address] Nucleated RBC/100 WBC Ratio (Bld) 0.0 /100 WBC Normal 0.0-0.0 [facility] Comment on above: Performed By: #### C BC ####[id number] [place] [address] Platelets Auto #/vol (Bld) 216 10*3/uL Normal 150 - 450 [facility] Comment on above: Performed By: #### C BC ####[id number] [place] [address] RBC Auto #/vol (Bld) 4.33 x10E12/L Low 4.50 - 5.90 [facility] Comment on above: Performed By: #### C BC ####[id number] [place] [address] WBC Auto #/vol (Bld) 7.6 10*3/uL Normal 4.4 - 11.3 [facility] Comment on above: Performed By: #### C BC ####[id number] [place] [address] Erythrocyte distribution width Auto Ratio (RBC) 12.9 % Normal 11.5 - 14.5 [facility] Comment on above: Performed By: #### C BC ####[id number] [place] [address] Hematocrit Auto Volume Fraction (Bld) 39.8 % Low 41.0 - 52.0 [facility] Comment on above: Performed By: #### C BC ####[id number] [place] [address] Hemoglobin mass conc (Bld) 13.6 g/dL Normal 13.5 - 17.5 [facility] Comment on above: Performed By: #### C BC ####[id number] [place] [address] MCHC Auto mass conc (RBC) 34.2 g/dL Normal 32.0 - 36.0 [facility] Comment on above: Performed By: #### C BC ####[id number] [place] [address] MCV Auto Entitic volume (RBC) 92 fL Normal 80 - 100 [facility] Comment on above: Performed By: #### C BC ####[id number] [place] [address] Nucleated RBC/100 WBC Ratio (Bld) 0.0 /100 WBC Normal 0.0-0.0 [facility] Comment on above: Performed By: #### C BC ####[id number] [place] [address] Platelets Auto #/vol (Bld) 216 10*3/uL Normal 150 - 450 [facility] Comment on above: Performed By: #### C BC ####[id number] [place] [address] RBC Auto #/vol (Bld) 4.34 x10E12/L Low 4.50 - 5.90 [facility] Comment on above: Performed By: #### C BC ####[id number] [place] [address] WBC Auto #/vol (Bld) 7.5 10*3/uL Normal 4.4 - 11.3 [facility] Comment on above: Performed By: #### C BC ####[id number] [place] [address] Daily Progress Note-Yann chavez 03-24-2018 Protein mass conc Service: Cardiology Subjective Data:DON ELKINS is a 67 year old Male who is Hospital Day # 7. Additional Information:s/p IVC Filter placement yesterday, SBP improved to 130s-150s/60-80s, BSremain elevated 200s - c/w Heparin gtt- Increase Lantus to 25 units- Add Lispro 6 units before meals- Plan for CABG next week Objective Data: Objective Information:T ESNBDnG6Spnic50.12493663/8496% Date/Time03/24 7: 7: 7: 8: 7:44Range(35.6C - 37C ) (67 - 85 ) (18 - 22 ) (122 - 158 )/ (68 - 84 ) (93% -96% )Highest temp of 37 C was recorded at 03/23 11:00 Pain with Activity reported at 03/24 3:34: 0Pain at Rest reported at 03/24 3:34: 0 Yjbxhiv81/6 3:33: Weight in kg (Weight (kg)) 108.311 3:33: Weight in lbs ((lbs)) 238.8 Physical Exam: Constitutional: Resting in bed, NADHead/Neck: No JVDRespiratory/Thorax: CTABCardiovascular: RRR, S1 S5Jpqiskruditxcphs: soft, NT/NDExtremities: No edemaNeurological: alert and oriented w5Iuxrtuwnokelm: Appropriate mood and behaviorSkin: psoriasis plaque over [...] Bolus) Injectable: 4000 unit(s) IntraVenous Push Every 8Nifrt9. Hydrocortisone: 10 mg Oral 9. Hydrocortisone: 5 mg Oral 10. Hydrocortisone: 2.5 mg Oral 11. Insulin Glargine (Lantus) Injectable: 20 unit(s) SubCutaneous Every 36Iyyvb36. Insulin Lispro Mild Corrective Scale: unit(s) SubCutaneous 3 Times a DayBefore Meals13. Levothyroxine: 150 microgram(s) Oral Daily14. Pantoprazole: 40 mg Oral Daily15. Polyethylene Glycol: 17 gram(s) Oral Daily16. rOPINIRole: 6 mg Oral 17. Sodium Chloride 0.65% Nasal [place]: 2 spray(s) Each Nostril 2 Times aDay PRN Medications -- 1. Dextrose 50% in Water Injectable: 25 gram(s) IntraVenous Push Every 78Nuhllkh6. Glucagon Injectable: 1 mg IntraMuscular Every 15 Minutes Currently Suspended Medications -- 1. Chlorhexidine Gluconate 4% Topical: 1 application(s) Topical Once Recent Lab Results: Results: I have reviewed these laboratory results: Glucose_POCT Trending View Gwqhrk13-Rgu-3798 06:54:00 23-Mar-2018 20:50:00Glucose-VEPI152 H 290 H Complete Blood Count Trending View Ghmgdp22-Hkz-5986 03:30:00 23-Mar-2018 20:34:00White Blood Cell Count7.6 7.5Nucleated Erythrocyte Count0.0 0.0Red Blood Cell Count4.33 L 4.34 LHGB13.4 L 13.6HCT40.0 L 39.8 LMCV92 53YJSF61.5 34.2UUC992 216RDW-CV12.9 12.9 Basic Metabolic Panel 24-Mar-2018 03:30:00 ResultValueGlucose, Serum 358 HNA 134 LK 4.2CL 103Bicarbonate, Serum 21Anion Gap, Serum 14BUN 26 HCREAT 1.24GFR-Non 58 AGFR- 70Calcium, Serum 9.1 Heparin assay, UFH Trending View [id number]-Vdz-1881 03:30:00 23-Mar-2018 23:27:00Heparin assay, UFH0.4 0.3 Renal [...] T2DM, Addisson's, GERD, prostate ca s/p prostatectomy [id number], hypothyroidism, psoriasis, and most recently diagnosed with a PE andmultivessel CAD transferred to medicine at [facility] from [facility] on03/18 for CABG eval. Multiple PEs- [...] on Friday.Appreciate Pulmonary input. Electronic Signatures:Vito Patino ([employer]PAPER [employer]ITTER) (Signed 24-Mar-2018 09:27)Authored: Service, Subjective Data, Objective Data, Assessment and Plan,Signature/Cosignature/Att estationLeonel Arteaga) (Signed 26-Mar-2018 11:20)Authored: Signature/Cosignature/Attestat ionCo-Signer: Service, Subjective Data, Objective Data, Assessment and Plan,Signature/Cosignature/Att estation Last Updated: 26-Mar-2018 11:20 by Leonel Arteaga) [facility] Daily Progress Note-Endocrin ologyon 03-24-2018 Protein mass conc Consult Type: subseq uent visit/care Service: Endocrinology Subjective Data:DON ELKINS is a 67 year old Male who is Hospital Day # 7. BS above range. Objective Data: Objective Information:T CIHXUiM9Xpvoy31.15163025/8397% Date/Time03/24 12: 12: 12: 12: 12:41Range(35.6C - [...] Bolus) Injectable: 4000 unit(s) IntraVenous Push Every 3Vtaab7. Hydrocortisone: 10 mg Oral 9. Hydrocortisone: 5 mg Oral 10. Hydrocortisone: 2.5 mg Oral 11. Insulin Glargine (Lantus) Injectable: 25 unit(s) SubCutaneous Every 50Dvogh60. Insulin Lispro (HumaLOG) Injectable: 6 unit(s) SubCutaneous 3 Times aDay Before Meals13. Insulin Lispro Mild Corrective Scale: unit(s) SubCutaneous 3 Times a DayBefore Meals14. Levothyroxine: 150 microgram(s) Oral Daily15. Pantoprazole: 40 mg Oral Daily16. Polyethylene Glycol: 17 gram(s) Oral Daily17. rOPINIRole: 6 mg Oral 18. Sodium Chloride 0.65% Nasal [place]: 2 spray(s) Each Nostril 2 Times aDay PRN Medications -- 1. Dextrose 50% in Water Injectable: 25 gram(s) IntraVenous Push Every 76Cxjprih1. Glucagon Injectable: 1 mg IntraMuscular Every 15 Minutes Currently Suspended Medications -- 1. Chlorhexidine Gluconate 4% Topical: 1 application(s) Topical Once Recent Lab Results: Results: I have reviewed these laboratory results: Glucose_POCT Trending View Aqldka18-Nty-0498 12:46:00 24-Mar-2018 11:46:00 24-Mar-2018 06:54:00 23-Mar-2018 20:50:00 23-Mar-2018 15:44:00 23-Mar-2018 11:37:00 96-Tsw-753775:37:00 22-Mar-2018 21:18:00Glucose-DSLZ378 H 262 H 217 H 290 H 228 H 226 H 189H 275 H Basic Metabolic Panel 24-Mar-2018 03:30:00 ResultValueGlucose, Serum 358 HNA 134 LK 4.2CL 103Bicarbonate, Serum 21Anion Gap, Serum 14BUN 26 HCREAT 1.24GFR-Non 58 AGFR- 70Calcium, Serum 9.1 Renal Function Panel Trending View Mcspxa18-Jmz-3396 20:34:00 22-Mar-2018 19:24:00Glucose, Vjesu381 H 226 YZX494 138K4.2 4.0TI300 102Bicarbonate, Serum24 25Anion Gap, Serum14 96YIT07 24 HCREAT1.23 1.53 HGFR-Non Oukbnswq56 A 46 AGFR- Qbhyifvr09 56 ACalcium, Serum9.2 9.0Phosphorus, Serum3.9 4.0ALB3.7 3.7 Assessment and Plan:Assessment: Mr. 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 Brigida's Disease-- Fludrocortisone 0.05 mg 4 times weekly ( and friday)-- Continue Hydrocortisone to 10-5-2.5 mg at 9ms-48iq-4hp DAILY as of tomorrow -On the day [...] protocol--Diabetic diet--will follow Please page with questions [phone] Patient seen and examined, plan discussed with [...] patient (as noted in the above attestation) [id number] Electronic Signatures:Starr Quevedo) (Signed 28-Mar-2018 09:05)Authored: Signature/Cosignature/Attestat ionCo-Signer: Service, Subjective Data, Objective Data, Assessment and PlanHasmukh Stephenson (Resident)) (Signed 24-Mar-2018 13:56)Authored: Service, Subjective Data, Objective Data, Assessment and Plan Last Updated: 28-Mar-2018 09:05 by Starr Quevedo) Normal [facility] GLUCOSE-POCTon 03-24-2018 Glucose mass conc 240 mg/dL High 74 - 99 [facility] Comment on above: Performed By: #### G BECKY ####[id number] [place] [address] Glucose mass conc 312 mg/dL High 74 - 99 [facility] Comment on above: Performed By: #### G BECKY ####[id number] [place] [address] Glucose mass conc 242 mg/dL High 74 - 99 [facility] Comment on above: Performed By: #### G BECKY ####[id number] [place] [address] Glucose mass conc 262 mg/dL High 74 - 99 [facility] Comment on above: Performed By: #### G BECKY ####[id number] [place] [address] Glucose mass conc 217 mg/dL High 74 - 99 [facility] Comment on above: Performed By: #### G BECKY ####[id number] [place] [address] HEPARIN ASSAY,UFHon 03-24-20 18 HEPARIN ASSAY,UFH 0.4 IU/mL Normal [facility] Comment on above: Result Comment: The therapeutic reference range for UFH may be either 0.3-0.6 IU/mL or 0.3-0.7 IU/mL based on the clinical setting for anticoagulant therapy and the associated nomogram used. For heparin dosing guidelines based on clinical scenario and Heparin Assay results, please refer to local Pharmacy and [facility] Guidelines for Anticoagulation therapy available on the [facility] intranet at:[email or web address]_Guidelines_for_Anticoagu.aspx Performed By: #### H AUF ####[id number] [place] [address] HEPARIN ASSAY,UFH 0.3 IU/mL Normal [facility] Comment on above: Result Comment: The therapeutic reference range for UFH may be either 0.3-0.6 IU/mL or 0.3-0.7 IU/mL based on the clinical setting for anticoagulant therapy and the associated nomogram used. For heparin dosing guidelines based on clinical scenario and Heparin Assay results, please refer to local Pharmacy and the [facility] Guidelines for Anticoagulation therapy available on the [facility] intranet at:[email or web address]/Pages/[place]_Guidelines_for_Anticoagu.aspx Performed By: #### H AUF ####[id number] [place] [address] RENAL FUNCTION PANELon 03-24 Albumin mass conc 3.7 g/dL Normal 3.4 - 5.0 [facility] Comment on above: Performed By: #### R ENAL ####[id number] [place] [address] Anion gap 3 molar conc 14 mmol/L Normal 10 - 20 [facility] Comment on above: Performed By: #### R ENAL ####[id number] [place] [address] Calcium mass conc 9.2 mg/dL Normal 8.6 - 10.6 [facility] Comment on above: Performed By: #### R ENAL ####[id number] [place] [address] Chloride molar conc 102 mmol/L Normal 98 - 107 [facility] Comment on above: Performed By: #### R ENAL ####[id number] [place] [address] Creatinine mass conc 1.23 mg/dL Normal 0.50 - 1.30 [facility] Comment on above: Performed By: #### R ENAL ####[id number] [place] [address] GFR- AM. 71 mL/min/1.73m2 Normal >60 [facility] Comment on above: Result Comment: CALC ULATIONS OF ESTIMATED GFR ARE PERFORMED USING THE MDRD STUDY EQUATION FOR THE IDMS-TRACEABLE CREATININE METHODS. CLIN CHEM 2007;53:766-72 Performed By: #### R ENAL ####[id number] [place] [address] GFR-NON AM. 59 mL/min/1.73m2 Abnormal >60 [facility] Comment on above: Performed By: #### R ENAL ####[id number] [place] [address] Glucose mass conc 271 mg/dL High 74 - 99 [facility] Comment on above: Performed By: #### R ENAL ####[id number] [place] [address] HCO3 molar conc (Bld) 24 mmol/L Normal 21 - 32 [facility] Comment on above: Performed By: #### R ENAL ####[id number] [place] [address] Phosphate mass conc 3.9 mg/dL Normal 2.5 - 4.9 [facility] Comment on above: Result Comment: The performance characteristics of phosphorus testing in heparinized plasma have been validated by the individual laboratory site where testing is performed. Testing on heparinized plasma is not approved by the FDA; however, such approval is not necessary. Performed By: #### R ENAL ####[id number] [place] [address] Potassium molar conc 4.2 mmol/L Normal 3.5 - 5.3 [facility] Comment on above: Performed By: #### R ENAL ####[id number] [place] [address] Sodium molar conc 136 mmol/L Normal 136 - 145 [facility] Comment on above: Performed By: #### R ENAL ####[id number] [place] [address] Urea nitrogen mass conc 21 mg/dL Normal 6 - 23 [facility] Comment on above: Performed By: #### R ENAL ####[id number] [place] [address] ABO/RH GROUP TESTon 03-23-20 18 ABO TYPE A Normal [facility] Comment on above: Performed By: #### T SH2 ####[id number] [place] [address] RH TYPE Positive Normal [facility] Comment on above: Performed By: #### T SH2 ####[id number] [place] [address] BENZODIAZEPINES CONF,URINEon 03-23-2018 7-AMINOCLONAZEPAM <5 Normal [facility] Comment on above: Performed By: #### B ENCN ####[facility] [place] [address] ALPHA-HYDROXYALPR AZOLAM <5 Normal [facility] Comment on above: Performed By: #### B ENCN ####[facility] [address] [place] [place] [address] ALPHA-HYRDOXYMIDA ZOLAM 36 ng/mL Normal [facility] Comment on above: Result Comment: Mida zolam metabolite: consistent with use of a drug containingmidazolam, such as Versed.Performed by [facility] [facility], [facility] [place] [address] che.[employer], Esteban Carbajal MD - Lab. Director Performed By: #### B ENCN ####[facility] [address] [place] [address] ALPRAZOLAM <5 Normal [facility] Comment on above: Performed By: #### B ENCN ####[facility] [address] [place] [address] CHLORDIAZEPOXIDE <20 Normal [facility] Comment on above: Performed By: #### B ENCN ####[facility] [id number] [place] [address] CLONAZEPAM <5 Normal [facility] Comment on above: Performed By: #### B ENCN ####[facility] [address] [place] [address] DIAZEPAM <20 Normal [facility] Comment on above: Result Comment: [...] the laboratory.Test developed and characteristics determined by [employer]. See Compliance Statement B: [email or web address] Performed By: #### B ENCN ####[facility] [address] [place] [address] LORAZEPAM <20 Normal [facility] Comment on above: Performed By: #### B ENCN ####[facility] [address] [place] [address] MIDAZOLAM <20 Normal [facility] Comment on above: Performed By: #### B ENCN ####ARUP [address] [place] [address] NORDIAZEPAM <20 Normal [facility] Comment on above: Performed By: #### B ENCN ####ARUP [address] [place] [address] OXAZEPAM <20 Normal [facility] Comment on above: Performed By: #### B ENCN ####ARUP [address] [place] [address] TEMAZEPAM <20 Normal [facility] Comment on above: Performed By: #### B ENCN ####ARUP [address] [place] [address] Daily Progress Note-Yann chavez 03-23-2018 Protein mass conc Service: Cardiology Subjective Data:DON ELKINS is a 67 year old Male who is Hospital Day # 6. Additional Information:s/p IVC Filter placement today, SBP remains elevated 150-160s, BS remainelevated 2-300s - restart Heparin gtt this evening- Plan for CABG next week Objective Data: Objective Information:T [id number]/7593%Da te/Time03/23 11::: 11:00Range(35.8C - 37C ) (69 - 78 ) (17 - 20 ) (121 - 168 )/ (73 - 91 ) (93% -97% )Highest temp of 37 C was recorded at 03/23 11:00 Pain with Activity reported at 03/23 11:00: 0Pain at Rest reported at 03/23 11:00: 0 Xqzapps82/5 3:51: Weight in kg (Weight (kg)) 108.811 3:51: Weight in lbs ((lbs)) 239.8 Physical Exam: Constitutional: Resting in bed, NADHead/Neck: No JVDRespiratory/Thorax: CTABCardiovascular: RRR, S1 T3Llcniuqqeatzdatb: soft, NT/NDExtremities: No edemaNeurological: alert and oriented u2Epyyhktgwihmd: Appropriate mood and behaviorSkin: psoriasis plaque over [...] Bolus) Injectable: 4000 unit(s) IntraVenous Push Every 2Jwpsk7. Hydrocortisone: 5 mg Oral 9. Insulin Lispro Mild Corrective Scale: unit(s) SubCutaneous 3 Times a DayBefore Meals10. Levothyroxine: 150 microgram(s) Oral Daily11. Mupirocin 2%: 0.5 application(s) Each Nostril 2 Times a Day12. Pantoprazole: 40 mg Oral Daily13. Polyethylene Glycol: 17 gram(s) Oral Daily14. rOPINIRole: 2 mg Oral 3 Times a Day15. Sodium Chloride 0.65% Nasal [place]: 2 spray(s) Each Nostril 2 Times aDay PRN Medications -- 1. Dextrose 50% in Water Injectable: 25 gram(s) IntraVenous Push Every 20Otliqhr7. Glucagon Injectable: 1 mg IntraMuscular Every 15 Minutes Currently Suspended Medications -- 1. Chlorhexidine Gluconate 4% Topical: 1 application(s) Topical Once2. Heparin 25,000 units/ D5W 250 mL Infusion: 1000 units/hr IntraVenous 3. Hydrocortisone: 10 mg Oral 4. Hydrocortisone: 5 mg Oral 5. Hydrocortisone: 2.5 mg Oral Recent Lab Results: Results: I have reviewed these laboratory results: Glucose_POCT Trending View Jwwqvz28-[id number] 11:37:00 23-Mar-2018 07:37:00 22-Mar-2018 21:18:00Glucose-NAQO431 H 189 H 275 H Heparin assay, UFH Trending View [id number]-[id number] 02:02:00 22-Mar-2018 19:24:00Heparin assay, UFH0.4 0.2 Complete [...] T2DM, Addisson's, GERD, prostate ca s/p prostatectomy [id number], hypothyroidism, psoriasis, and most recently diagnosed with a PE andmultivessel CAD transferred to medicine at [facility] from [facility] on03/18 for CABG eval. Multiple PEs- [...] 24 hours- 03/22 Lantus 20 units x1 Brigida's disease- 03/22 Reduce fludrocortisone to 0.05 [...] Dr. Ramirez.Restart anticoagulation post procedure. Electronic Signatures:Vito Ptaino (INSTRUCTOR GROUND SERVICES-PAPER SLITTER) (Signed 23-Mar-2018 15:52)Authored: Service, Subjective Data, Objective Data, Assessment and Plan,Signature/Cosignature/Att estationLeonel Arteaga) (Signed 26-Mar-2018 11:14)Authored: Signature/Cosignature/Attestat ionCo-Signer: Service, Subjective Data, Objective Data, Assessment and Plan,Signature/Cosignature/Att estation Last Updated: 26-Mar-2018 11:14 by Leonel Arteaga) Normal [facility] Daily Progress Note-Endocrin ologyon 03-23-2018 Protein mass conc Service: Endocrinolo gy Subjective Data:DON ELKINS is a 67 year old Male who is Hospital Day # 6. Post IVF procedure today received HCt 30 mg once in ama d 10 mg IVat noon whilein the OR, HDS. 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 Bunn's Disease-- Fludrocortisone to 0.05 mg 4 times weekly ( and friday)-- Give HCt 5mg today at 5 pm then resume as below tomorrow-- Continue Hydrocortisone to 10-5-2.5 mg at 7jd-00ve-6va DAILY as of tomorrow -On the day [...] protocol--Diabetic diet--will follow Please page with questions [phone] Patient seen and examined, plan discussed with [...] patient (as noted in the above attestation) [id number] Electronic Signatures:Starr Quevedo) (Signed 28-Mar-2018 09:04)Authored: Signature/Cosignature/Attestat ionCo-Signer: Service, Subjective Data, Objective Data, Assessment and Plan,Signature/Cosignature/Att estationHasmukh Stephenson (Resident)) (Signed 23-Mar-2018 15:54)Authored: Service, Subjective Data, Objective Data, Assessment and Plan,Signature/Cosignature/Att estation Last Updated: 28-Mar-2018 09:04 by Starr Quevedo) Normal [facility] Daily Progress Note-Pulmonol ogyon 03-23-2018 Daily Progress Note-Pulmonology Consult Type: subsequent visit/care Sign Off Recommendations Service: Pulmonology Subjective Data:DON ELKINS is a 67 year old Male who is Hospital Day # 6. Additional Information:Patient had no acute events overnight and reports he continues to beambulatory. He denies any fevers or difficulty breathing and continues to beanticoagulated on heparin. He has no additional complaints this morning and isoxygenating well on ambient air. Objective Data: Objective Information:T [id number]/7193%Da te/Time03/23 11: 15: 11: 15: 11:00Range(35.8C - [...] medicine will sign offPlease page with questions [phone] Signature/Cosignature/Attestat ion:Attending AttestationI saw and evaluated the [...] patient (as noted in the above attestation) [id number] Electronic Signatures:Angie Fuentes) (Signed 23-Mar-2018 18:13)Authored: Service, Signature/Cosignature/Attestat ionCo-Signer: Service, Subjective Data, Objective Data, Assessment and Plan,Signature/Cosignature/Att estationPrincess Garnica (Fellow)) (Signed 23-Mar-2018 16:18)Authored: Service, Subjective Data, Objective Data, Assessment and Plan,Signature/Cosignature/Att estation Last Updated: 23-Mar-2018 18:13 by Angie Fuentes) Normal [facility] GLUCOSE-POCTon 03-23-2018 Glucose mass conc 290 mg/dL High [address] [place] [address] Comment on above: Performed By: #### G BECKY ####[id number] [place] [address] Glucose mass conc 228 mg/dL High [address] [place] [address] Comment on above: Performed By: #### T SH2 ####[id number] [place] [address] Glucose mass conc 226 mg/dL High [address] [place] [address] Comment on above: Performed By: #### T SH2 ####[id number] [place] [address] Glucose mass conc 189 mg/dL High [address] [place] [address] Comment on above: Performed By: #### T SH2 ####[id number] [place] [address] HEPARIN ASSAY,UFHon 03-23-20 HEPARIN ASSAY,UFH 0.4 IU/mL Normal [facility] Comment on above: Result Comment: The therapeutic reference range for UFH may be either 0.3-0.6 IU/mL or 0.3-0.7 IU/mL based on the clinical setting for anticoagulant therapy and the associated nomogram used. For heparin dosing guidelines based on clinical scenario and Heparin Assay results, please refer to local Pharmacy and the [facility] Guidelines for Anticoagulation therapy available on the [facility] intranet at:[email or web address] Performed By: #### T SH2 ####[id number] [place] [address] OPERATIVE REPORTon 8 OPERATIVE REPORT [facility] [place] [id number] Name: DON ELKINSMRN: [id number]: 1950ncounter Number: [id number] of Service: 03/23/2018Patient [facility] [id number] Type: ISurgeon: Ana King Type: Operative ReportsPREOPERATIVE [...] wall puncture technique using ultrasound guidance. A 5-Greenlandic sheath was placed. A wire was placed [...] MD ESTTT: 03/24/2018 00:30 AM ESTDICTATION NUMBER: [id number] JOB NUMBER: [id number]:Leonel Arteaga MD, [id number] Cheng MD, PhDElectronically Signed by Dr. Severiano Stapleton 04/01/2018 03:04:35 PM Normal [facility] OPIATE CONFIRMATION,URINEon 03-23-2018 6-ACETYLMORPHINE <10 Normal [facility] Comment on above: Result Comment: [...] the laboratory.Test developed and characteristics determined by [facility]. See Compliance Statement B: Retewi.Branch Metrics/CS Performed By: #### O PIC2 ####ARUP [address] [place] [address] CODEINE <20 Normal [facility] Comment on above: Performed By: #### O PIC2 ####ARUP [address] [place] [address] HYDROCODONE <20 Normal [facility] Comment on above: Performed By: #### O PIC2 ####ARUP [address] [place] [address] HYDROMORPHONE <20 Normal [facility] Comment on above: Performed By: #### O PIC2 ####ARUP [address] [place] [address] MORPHINE <20 Normal [facility] Comment on above: Performed By: #### O PIC2 ####ALUP [address] [place] [address] NORHYDROCODONE <20 Normal [facility] Comment on above: Result Comment: Perf ormed by [facility],[address], [facility] [address] wkx.[employer], Esteban Carbajal MD - Lab. Director Performed By: #### O PIC2 ####[facility] [address] [place] [address] NOROXYCODONE <20 Normal [facility] Comment on above: Performed By: #### O PIC2 ####[facility] [address] [place] [address] NOROXYMORPHONE <20 Normal [facility] Comment on above: Performed By: #### O PIC2 ####[facility] [address] [place] [address] OXYCODONE <20 Normal [facility] Comment on above: Performed By: #### O PIC2 ####[facility] [address] [place] [address] OXYMORPHONE <20 Normal [facility] Comment on above: Performed By: #### O PIC2 ####ALUP [address] [place] [address] Preop Checkliston 03-23-2018 Preop Checklist Preop Checklist:Preo p Checklist: Procedure TypeIVC filter NPO [id number] 00:00 ID Band Onyes Allergy Bandno known [...] 23-Mar-2018 06:11 by Matt Zapien (RN) Normal [facility] RENAL FUNCTION PANELon 03-23 Albumin mass conc 3.7 g/dL Normal 3.4 - 5.0 [facility] Comment on above: Performed By: #### T SH2 ####[id number] [place] [address] Anion gap 3 molar conc 15 mmol/L Normal 10 - 20 [facility] Comment on above: Performed By: #### T SH2 ####[id number] [place] [address] Calcium mass conc 9.0 mg/dL Normal 8.6 - 10.6 [facility] Comment on above: Performed By: #### T SH2 ####[id number] [place] [address] Chloride molar conc 102 mmol/L Normal 98 - 107 [facility] Comment on above: Performed By: #### T SH2 ####[id number] [place] [address] Creatinine mass conc 1.53 mg/dL High 0.50 - 1.30 [facility] Comment on above: Performed By: #### T SH2 ####[id number] [place] [address] GFR- AM. 56 mL/min/1.73m2 Abnormal >60 [facility] Comment on above: Result Comment: CALC ULATIONS OF ESTIMATED GFR ARE PERFORMED USING THE MDRD STUDY EQUATION FOR THE IDMS-TRACEABLE CREATININE METHODS. CLIN CHEM 2007;53:766-72 Performed By: #### T SH2 ####[id number] [place] [address] GFR-NON AM. 46 mL/min/1.73m2 Abnormal >60 [facility] Comment on above: Performed By: #### T SH2 ####[id number] [place] [address] Glucose mass conc 226 mg/dL High 74 - 99 [facility] Comment on above: Performed By: #### T SH2 ####[id number] [place] [address] HCO3 molar conc (Bld) 25 mmol/L Normal 21 - 32 [facility] Comment on above: Performed By: #### T SH2 ####[id number] [place] [address] Phosphate mass conc 4.0 mg/dL Normal 2.5 - 4.9 [facility] Comment on above: Result Comment: The performance characteristics of phosphorus testing in heparinized plasma have been validated by the individual laboratory site where testing is performed. Testing on heparinized plasma is not approved by the FDA; however, such approval is not necessary. Performed By: #### T SH2 ####[id number] [place] [address] Potassium molar conc 4.2 mmol/L Normal 3.5 - 5.3 [facility] Comment on above: Performed By: #### T SH2 ####[id number] [place] [address] Sodium molar conc 138 mmol/L Normal 136 - 145 [facility] Comment on above: Performed By: #### T SH2 ####[id number] [place] [address] Urea nitrogen mass conc 24 mg/dL High 6 - 23 [facility] Comment on above: Performed By: #### T SH2 ####[id number] [place] [address] CBCon 03-22-2018 Erythrocyte distribution width Auto Ratio (RBC) 12.8 % Normal 11.5 - 14.5 [facility] Comment on above: Performed By: #### L IPID ####[id number] [place] [address] Hematocrit Auto Volume Fraction (Bld) 38.0 % Low 41.0 - 52.0 [facility] Comment on above: Performed By: #### L IPID ####[id number] [place] [address] Hemoglobin mass conc (Bld) 12.8 g/dL Low 13.5 - 17.5 [facility] Comment on above: Performed By: #### L IPID ####[id number] [place] [address] MCHC Auto mass conc (RBC) 33.7 g/dL Normal 32.0 - 36.0 [facility] Comment on above: Performed By: #### L IPID ####[id number] [place] [address] MCV Auto Entitic volume (RBC) 93 fL Normal 80 - 100 [facility] Comment on above: Performed By: #### L IPID ####[id number] [place] [address] Nucleated RBC/100 WBC Ratio (Bld) 0.0 /100 WBC Normal 0.0-0.0 [facility] Comment on above: Performed By: #### L IPID ####[id number] [place] [address] Platelets Auto #/vol (Bld) 214 10*3/uL Normal 150 - 450 [facility] Comment on above: Performed By: #### L IPID ####[id number] [place] [address] RBC Auto #/vol (Bld) 4.07 x10E12/L Low 4.50 - 5.90 [facility] Comment on above: Performed By: #### L IPID ####[id number] [place] [address] WBC Auto #/vol (Bld) 7.3 10*3/uL Normal 4.4 - 11.3 [facility] Comment on above: Performed By: #### L IPID ####[id number] [place] [address] Erythrocyte distribution width Auto Ratio (RBC) 12.9 % Normal 11.5 - 14.5 [facility] Comment on above: Performed By: #### R ENAL ####[id number] [place] [address] Hematocrit Auto Volume Fraction (Bld) 40.8 % Low 41.0 - 52.0 [facility] Comment on above: Performed By: #### R ENAL ####[id number] [place] [address] Hemoglobin mass conc (Bld) 13.5 g/dL Normal 13.5 - 17.5 [facility] Comment on above: Performed By: #### R ENAL ####[id number] [place] [address] MCHC Auto mass conc (RBC) 33.1 g/dL Normal 32.0 - 36.0 [facility] Comment on above: Performed By: #### R ENAL ####[id number] [place] [address] MCV Auto Entitic volume (RBC) 94 fL Normal 80 - 100 [facility] Comment on above: Performed By: #### R ENAL ####[id number] [place] [address] Nucleated RBC/100 WBC Ratio (Bld) 0.0 /100 WBC Normal 0.0-0.0 [facility] Comment on above: Performed By: #### R ENAL ####[id number] [place] [address] Platelets Auto #/vol (Bld) 241 10*3/uL Normal 150 - 450 [facility] Comment on above: Performed By: #### R ENAL ####[id number] [place] [address] RBC Auto #/vol (Bld) 4.35 x10E12/L Low 4.50 - 5.90 [facility] Comment on above: Performed By: #### R ENAL ####[id number] [place] [address] WBC Auto #/vol (Bld) 9.4 10*3/uL Normal 4.4 - 11.3 [facility] Comment on above: Performed By: #### R ENAL ####[id number] [place] [address] Daily Progress Note-Cardiosandra chavez 03-22-2018 Protein mass [...] per Endo recs Objective Data: Objective Information:T SAPWAcQ8Miolz18.91894334/8895% Date/Time03/22 12: 12: 12: 12: 12:00Range(36C - 36.4C ) (73 - 83 ) (17 - 18 ) (120 - 188 )/ (57 - 99 ) (93% -99% ) Pain with Activity reported at 03/21 15:25: 0Pain at Rest reported at 03/21 15:25: 0 Cxgolgx35/4 3:13: Weight in kg (Weight (kg)) 108.6105/22 3:13: Weight in lbs ((lbs)) 239.4 Physical Exam: Constitutional: Resting in bed, NADHead/Neck: No JVDRespiratory/Thorax: CTABCardiovascular: RRR, S1 M1Azguxybhxmzuorpe: soft, NT/NDExtremities: No edemaNeurological: alert and oriented b4Dyizjrwjrxuff: Appropriate mood and behaviorSkin: psoriasis plaque over [...] Bolus) Injectable: 4000 unit(s) IntraVenous Push Every 4Hzzxe2. Hydrocortisone: 2.5 mg Oral 9. Hydrocortisone: 30 [...] Times a Day18. Sodium Chloride 0.65% Nasal [place]: 2 spray(s) Each Nostril 2 Times aDay PRN Medications -- 1. Dextrose 50% in Water Injectable: 25 gram(s) IntraVenous Push Every 78Hdgmviv3. Glucagon Injectable: 1 mg IntraMuscular Every 15 Minutes Currently Suspended Medications -- 1. Chlorhexidine Gluconate 0.12% Mucous Mem: 15 mL Topical Morning andEvening2. Hydrocortisone: 10 mg Oral 3. Hydrocortisone: 5 mg Oral Recent Lab Results: Results: I have reviewed these laboratory results: Glucose_POCT Trending View Wjzrtw90-Plm-9888 11:44:00 22-Mar-2018 07:52:00 21-Mar-2018 21:58:00Glucose-TAJK416 H 183 H 220 H Complete Blood [...] A4C: 17.4cm2LA Area A2C: 14.2 cm2LA Major Barry A4C: 6.0 cmLA Major Barry A2C: 4.7 cmLA Volume Index: 15.2 ml/m2RA VOLUME BY A/L METHOD: Normal Ranges:RA Area A4C: 12.8 dy0N-DSFK MEASUREMENTS: Normal Ranges:Ao Root: 2.90 cm (2.0-3.7cm)LAs: [...] T2DM, Addisson's, GERD, prostate ca s/p prostatectomy [id number], hypothyroidism, psoriasis, and most recently diagnosed with a PE andmultivessel CAD transferred to medicine at [facility] from [facility] on03/18 for CABG eval. Multiple PEs- [...] on PPICode status: Full Electronic Signatures:Vito Patino (INSTRUCTOR GROUND SERVICES-PAPER SLITTER) (Signed 22-Mar-2018 14:13)Authored: Service, Subjective Data, Objective Data, Assessment and Plan,Signature/Cosignature/Att estationSPatience decker) (Signed 22-Mar-2018 15:25)Co-Signer: Service, Subjective Data, Objective Data, Assessment and Plan,Signature/Cosignature/Att estation Last Updated: 22-Mar-2018 15:25 by Patience Sow) Normal [facility] Daily Progress Note-Endocrin ologyon 03-22-2018 Protein mass conc Consult Type: subseq uent visit/care Service: Endocrinology Subjective Data:DON ELKINS is a 67 year old Male who is Hospital Day # 5. No acute events.IVC filter placement tomorrow. Objective Data: Objective Information:T OSQRJjM9Jygym35.17989034/8895% Date/Time03/22 12: 12: 12: 12: 12:00Range(36C - [...] Bolus) Injectable: 4000 unit(s) IntraVenous Push Every 3Pjzgz6. Hydrocortisone: 10 mg Oral 9. Hydrocortisone: 5 [...] Times a Day18. Sodium Chloride 0.65% Nasal [place]: 2 spray(s) Each Nostril 2 Times aDay PRN Medications -- 1. Dextrose 50% in Water Injectable: 25 gram(s) IntraVenous Push Every 68Cucuboy0. Glucagon Injectable: 1 mg IntraMuscular Every 15 Minutes Currently Suspended Medications -- 1. Chlorhexidine Gluconate 0.12% Mucous Mem: 15 mL Topical Morning andEvening Recent Lab Results: Results: I have reviewed these laboratory results: Glucose_POCT Trending View Wapjgu97-Eww-5820 11:44:00 22-Mar-2018 07:52:00 21-Mar-2018 21:58:00 21-Mar-2018 15:52:00 21-Mar-2018 12:06:00 21-Mar-2018 08:37:00Glucose-MQHG171 H 183 H 220 H 269 H [...] a past medicalhistory of HTN, HLD, T2DM, Bunn's disease, hypothyroidism, COPD, AKASH onCPAP, prostate ca s/p prostatectomy in 2011, and psoriasis who was transferredto [facility]VI service at [facility] from [facility] on 03/18 forWALTER marshall.Endocrine consulted fr 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 Brigida's Disease-- Decrease Fludrocortisone to 0.05 mg 4 times weekly ( and friday)-- Continue Hydrocortisone to 10-5-2.5 mg at 7vk-77ft-1sj DAILY-- On day of IVC filter placement, [...] diet -will follow Please page with questions [phone] Patient seen and examined, plan discussed with [...] patient (as noted in the above attestation) [id number] Electronic Signatures:Starr Quevedo) (Signed 23-Mar-2018 12:38)Authored: Signature/Cosignature/Attestat ionCo-Signer: Service, Subjective Data, Objective Data, Assessment and Plan,Signature/Cosignature/Att estationJob Torres (Resident)) (Signed 22-Mar-2018 12:13)Authored: Service, Subjective Data, Objective Data, Assessment and Plan,Signature/Cosignature/Att estation Last Updated: 23-Mar-2018 12:38 by Starr Quevedo) Normal [facility] GLUCOSE-POCTon 03-22-2018 Glucose mass conc 275 mg/dL High 74 - 99 [facility] Comment on above: Performed By: #### L IPID ####[id number] [place] [address] Glucose mass conc 276 mg/dL High 74 - 99 [facility] Comment on above: Performed By: #### L IPID ####[id number] [place] [address] Glucose mass conc 308 mg/dL High 74 - 99 [facility] Comment on above: Performed By: #### L IPID ####[id number] [place] [address] Glucose mass conc 183 mg/dL High 74 - 99 [facility] Comment on above: Performed By: #### L IPID ####[id number] [place] [address] HEPARIN ASSAY,UFHon 03-22-20 18 HEPARIN ASSAY,UFH 0.2 IU/mL Normal [facility] Comment on above: Result Comment: The therapeutic reference range for UFH may be either 0.3-0.6 IU/mL or 0.3-0.7 IU/mL based on the clinical setting for anticoagulant therapy and the associated nomogram used. For heparin dosing guidelines based on clinical scenario and Heparin Assay results, please refer to local Pharmacy and the [facility] Guidelines for Anticoagulation therapy available on the [facility] H[facility]PITAL intranet at:[email or web address]/Pharmacy/Pages/[place]_Guidelines_for_Anticoagu.aspx Performed By: #### L IPID ####[id number] [place] [address] PROSTATE SPECIFIC AGon 03-22 Prostate specific Ag mass conc ng/mL Normal 0.00 - 4.00 [facility] Comment on above: Result Comment: [...] of prostatecancer. Performed By: #### L IPID ####[id number] [place] [address] RENAL FUNCTION PANELon 03-22 Albumin mass conc 3.8 g/dL Normal 3.4 - 5.0 [facility] Comment on above: Performed By: #### R ENAL ####[id number] [place] [address] Anion gap 3 molar conc 18 mmol/L Normal 10 - 20 [facility] Comment on above: Performed By: #### R ENAL ####[id number] [place] [address] Calcium mass conc 9.2 mg/dL Normal 8.6 - 10.6 [facility] Comment on above: Performed By: #### R ENAL ####[id number] [place] [address] Chloride molar conc 102 mmol/L Normal 98 - 107 [facility] Comment on above: Performed By: #### R ENAL ####[id number] [place] [address] Creatinine mass conc 1.66 mg/dL High 0.50 - 1.30 [facility] Comment on above: Performed By: #### R ENAL ####[id number] [place] [address] GFR- AM. 50 mL/min/1.73m2 Abnormal >60 [facility] Comment on above: Result Comment: CALC ULATIONS OF ESTIMATED GFR ARE PERFORMED USING THE MDRD STUDY EQUATION FOR THE IDMS-TRACEABLE CREATININE METHODS. CLIN CHEM 2007;53:766-72 Performed By: #### R ENAL ####[id number] [place] [address] GFR-NON AM. 41 mL/min/1.73m2 Abnormal >60 [facility] Comment on above: Performed By: #### R ENAL ####[id number] [place] [address] Glucose mass conc 257 mg/dL High 74 - 99 [facility] Comment on above: Performed By: #### R ENAL ####[id number] [place] [address] HCO3 molar conc (Bld) 24 mmol/L Normal 21 - 32 [facility] Comment on above: Performed By: #### R ENAL ####[id number] [place] [address] Phosphate mass conc 4.0 mg/dL Normal 2.5 - 4.9 [facility] Comment on above: Result Comment: The performance characteristics of phosphorus testing in heparinized plasma have been validated by the individual laboratory site where testing is performed. Testing on heparinized plasma is not approved by the FDA; however, such approval is not necessary. Performed By: #### R ENAL ####[id number] [place] [address] Potassium molar conc 4.5 mmol/L Normal 3.5 - 5.3 [facility] Comment on above: Performed By: #### R ENAL ####[id number] [place] [address] Sodium molar conc 139 mmol/L Normal 136 - 145 [facility] Comment on above: Performed By: #### R ENAL ####[id number] [place] [address] Urea nitrogen mass conc 29 mg/dL High 6 - 23 [facility] Comment on above: Performed By: #### R ENAL ####[id number] [place] [address] TYPE + SCREENon 03-22-2018 ABO TYPE A Normal [facility] Comment on above: Performed By: #### L IPID ####[id number] [place] [address] RH TYPE Positive Normal [facility] Comment on above: Performed By: #### L IPID ####[id number] [place] [address] Daily Progress Note-Cardiolo gyon 03-21-2018 Protein mass conc Service: Cardiology Subjective Data:DON ELKINS is a 67 year old Male who is Hospital Day # 4. Additional Information:Has been up ambulating in [place], denies CP, SOB, remains on Heparin gtt. - Plan for IVC filter placement Friday- will adjust hydrocortisone while NPO- c/w Heparin gtt until next week- Tentative plan for CABG with Dr. Gaston 03/30- Advised to follow up with age appropriate cancer screening (colonoscopy)- plan for 3-6 months anticoagulation (1st episode unprovoked PE) Objective Data: Objective Information:T [id number]/7997%Da te/Time03/21 12:00105/21 12: 12: 12: 12:00Range(36C - 36.5C ) (78 - 90 ) (18 - 21 ) (134 - 171 )/ (73 - 102 ) (96%- 97% ) Pain with Activity reported at 03/21 8:30: 0Pain at Rest reported at 03/21 8:30: 0 Hasalhr92/3 4:19: Weight in kg (Weight (kg)) 108.711 4:19: Weight in lbs ((lbs)) 239.6 Physical Exam: Constitutional: Resting in bed, NADHead/Neck: No JVDRespiratory/Thorax: CTABCardiovascular: RRR, S1 T0Npwfdqohecxgyovi: soft, NT/NDExtremities: No edemaNeurological: alert and oriented l4Jlfhjhbejxjxw: Appropriate mood and behaviorSkin: psoriasis plaque over [...] Bolus) Injectable: 4000 unit(s) IntraVenous Push Every 7Okuve8. Hydrocortisone: 10 mg Oral 9. Hydrocortisone: 5 [...] Times a Day17. Sodium Chloride 0.65% Nasal [place]: 2 spray(s) Each Nostril 2 Times aDay PRN Medications -- 1. Dextrose 50% in Water Injectable: 25 gram(s) IntraVenous Push Every 76Awggohr3. Glucagon Injectable: 1 mg IntraMuscular Every 15 Minutes Recent Lab Results: Results: I have reviewed these laboratory results: Glucose_POCT Trending View Isovkb17-Odv-3328 12:06:00 21-Mar-2018 08:37:00Glucose-KEMK959 H 192 H Heparin assay, UFH Trending View Rkxwpk76-Idc-1752 07:10:00 21-Mar-2018 03:30:00 20-Mar-2018 22:05:00Heparin assay, UFH0.4 [...] A4C: 17.4cm2LA Area A2C: 14.2 cm2LA Major Barry A4C: 6.0 cmLA Major Barry A2C: 4.7 cmLA Volume Index: 15.2 ml/m2RA VOLUME BY A/L METHOD: Normal Ranges:RA Area A4C: 12.8 ve0P-FBGC MEASUREMENTS: Normal Ranges:Ao Root: 2.90 cm (2.0-3.7cm)LAs: [...] T2DM, Addisson's, GERD, prostate ca s/p prostatectomy [id number], hypothyroidism, psoriasis, and most recently diagnosed with a PE andmultivessel CAD transferred to medicine at [facility] from [facility] for CABG eval. Multiple PEs- addison. [...] likely to improved with reducing Hydrocortisone dose Brigida's disease- Reduce fludrocortisone to 0.05 mg daily- Reduce hydrocortisone to 10mg/5mg/2.5mg- Follow Endocrine recs when NPO GERD- Continue home PPI HTN- Holding LAUREN- 159/83 - 171/102 over past 24 hours- 03/20 Increase Carvedilol to 12.5mg BID- Monitor BP with reducing Florinef dose DLD- Atorva 40mg- lipids 155/44/82/141 HypothyroidismTSH 2.51- Continue home levothyroxine GI ppx: on PPICode status: Full Electronic Signatures:Vito Patino (INSTRUCTOR GROUND SERVICES-PAPER SLITTER) (Signed 21-Mar-2018 14:04)Authored: Service, Subjective Data, Objective Data, Assessment and Plan,Signature/Cosignature/Att estationSPatience decker) (Signed 22-Mar-2018 13:55)Co-Signer: Service, Subjective Data, Objective Data, Assessment and Plan,Signature/Cosignature/Att estation Last Updated: 22-Mar-2018 13:55 by Patience Sow) Normal [facility] Daily Progress Note-Endocrin yarelyyon 03-21-2018 Protein mass conc Consult Type: subseq uent visit/care Service: Endocrinology Subjective Data:DON ELKINS is a 67 year old Male who is Hospital Day # 4. Patient is doing okay today. Mo Complaints.His CABG was postponed.Possible IVC filter early next week. Objective Data: Objective Information:T MTVMDaT4Ccdht06.82085076/8197% Date/Time03/21 8: 8: 8: 8: 8:00Range(36.3C - [...] Bolus) Injectable: 4000 unit(s) IntraVenous Push Every 7Jydio9. Hydrocortisone: 10 mg Oral 9. Hydrocortisone: 5 [...] Water Injectable: 25 gram(s) IntraVenous Push Every 37Dvzihzc1. Glucagon Injectable: 1 mg IntraMuscular Every 15 Minutes Recent Lab Results: Results: I have reviewed these laboratory results: Glucose_POCT Trending View Mtxclw00-Upa-1453 08:37:00 20-Mar-2018 17:30:00 20-Mar-2018 13:24:00 20-Mar-2018 08:28:00 19-Mar-2018 21:30:00 19-Mar-2018 18:25:00Glucose-CWSB027 H 243 H 234 H 195 H 308 H 226 H Complete Blood Count Trending View Pptwob40-Kmq-4933 19:09:00 19-Mar-2018 17:57:00White Blood Cell Count11.0 10.8Nucleated Erythrocyte Count0.0 0.0Red Blood Cell Count4.48 L 4.32 LHGB14.0 13.4 LHCT40.8 L 39.6 LMCV91 67XNRK01.3 33.1OIN674 259RDW-CV13.1 13.0 Renal Function Panel Trending View Vdklxi11-Emf-5611 19:09:00 19-Mar-2018 17:57:00Glucose, Bmtnt375 H 229 URE424 137K4.0 3.3QZ163 102Bicarbonate, Serum24 23Anion Gap, Serum16 43SMY01 25 HCREAT1.38 H 1.36 HGFR-Non Jycfkznj23 A 52 AGFR- Turkoddi82 63Calcium, Serum9.0 9.4Phosphorus, Serum4.3 3.6ALB3.9 3.9 Assessment and Plan:Assessment: Mr. Elkins is a 67 yo WM with no known history of CAD, who has a past medicalhistory of HTN, HLD, T2DM, Bunn's disease, hypothyroidism, COPD, AKASH onCPAP, prostate ca s/p prostatectomy in 2011, and psoriasis who was [facility]to [facility] service [facility] from [facility] on 03/18 forCABG marshall.Endocrine consulted fr evaluation of Bunn disease and treatment periop Patient is o supra-therapeutic dose of HCT 20-0-20 , fludrocortisone 0.1 ,mgdailyPatient has uncontrolled HTN and uncontrolled BS REcs:-Continue Fludrocortisone to 0.05 mg daily- Continue Hydrocortisone to 10-5-2.5 mg at 2tg-51dq-4wr DAILY-- On day of IVC filter placement, [...] surgery please.-will follow Please page with questions [phone] Patient seen and examined, plan discussed with [...] patient (as noted in the above attestation) [id number] Electronic Signatures:Starr Quevedo) (Signed 23-Mar-2018 12:34)Authored: Signature/Cosignature/Attestat ionCo-Signer: Service, Subjective Data, Objective Data, Assessment and Plan,Signature/Cosignature/Att estationJob Torres (Resident)) (Signed 21-Mar-2018 11:41)Authored: Service, Subjective Data, Objective Data, Assessment and Plan,Signature/Cosignature/Att estation Last Updated: 23-Mar-2018 12:34 by Starr Quevedo) Normal [facility] Daily Progress Note-Pulmonol ogkelsi 03-21-2018 Daily Progress Note-Pulmonology Service: Pulmonology Subjective Data:DON ELKINS is a 67 year old Male who is Hospital Day # 4. Additional Information:Pt denies any active complaints. has been ambulatory in [facility] w/o CP/SOB.Previously, on occassion would have bleeding gums, but has not noticed anysince starting heparin. Reports cough, no sputum production. Objective Data: Objective Information:T XIPUChC8Nogcu119582169/7997%Da te/Time03/21 12: 12: 12: 12: 12:00Range(36C - 36.5C ) (78 - 90 ) (18 - 21 ) (134 - 171 )/ (73 - 102 ) (96%- 97% ) Pain with Activity reported at 03/21 8:30: 0Pain at Rest reported at 03/21 8:30: 0T SWNNRsF5Olzuq725920661/7997%Da te/Time03/21 12: 12: 12: 12: 12:00Range(36C - [...] Bolus) Injectable: 4000 unit(s) IntraVenous Push Every 0Psyvu4. Hydrocortisone: 10 mg Oral 9. Hydrocortisone: 5 [...] Water Injectable: 25 gram(s) IntraVenous Push Every 95Jvctwxo4. Glucagon Injectable: 1 mg IntraMuscular Every 15 Minutes Recent Lab Results: Results: I have reviewed these laboratory results: Glucose_POCT Trending View Houwle29-Uih-4488 12:06:00 21-Mar-2018 08:37:00Glucose-SZTX547 H 192 H Heparin assay, UFH Trending View Poixlx27-Vtw-7693 07:10:00 21-Mar-2018 03:30:00Heparin assay, UFH0.4 0.4 Assessment [...] discussed with Dr. Floyd call with questions [id number] Signature/Cosignature/Attestat ion:Attending AttestationI saw and evaluated the [...] patient (as noted in the above attestation) [id number] Electronic Signatures:Angie Fuentes) (Signed 03-Apr-2018 14:11)Authored: Signature/Cosignature/Attestat ionCo-Signer: Assessment and Plan, Signature/Cosignature/Attestat Joseph Perez (Fellow)) (Signed 21-Mar-2018 13:00)Authored: Service, Subjective Data, Objective Data, Assessment and Plan,Signature/Cosignature/Att estation Last Updated: 03-Apr-2018 14:11 by Angie Fuentes) Normal [facility] GLUCOSE-POCTon 03-21-2018 Glucose mass conc 220 mg/dL High 74 - 99 [facility] Comment on above: Performed By: #### R ENAL ####[id number] [place] [address] Glucose mass conc 269 mg/dL High 74 - 99 [facility] Comment on above: Performed By: #### R ENAL ####[id number] [place] [address] Glucose mass conc 255 mg/dL High 74 - 99 [facility] Comment on above: Performed By: #### R ENAL ####[id number] [place] [address] Glucose mass conc 192 mg/dL High 74 - 99 [facility] Comment on above: Performed By: #### R ENAL ####[id number] [place] [address] HEPARIN ASSAY,UFHon 03-21-20 18 HEPARIN ASSAY,UFH 0.3 IU/mL Normal [facility] Comment on above: Result Comment: The therapeutic reference range for UFH may be either 0.3-0.6 IU/mL or 0.3-0.7 IU/mL based on the clinical setting for anticoagulant therapy and the associated nomogram used. For heparin dosing guidelines based on clinical scenario and Heparin Assay results, please refer to local Pharmacy and the [facility] Guidelines for Anticoagulation therapy available on the [facility] intranet at:[email or web address]/Pharmacy/Pages/[facility]_Guidelines_for_Anticoagu.aspx Performed By: #### R ENAL ####[id number] [id number] HEPARIN ASSAY,UFH 0.4 IU/mL Normal [facility] Comment on above: Result Comment: The therapeutic reference range for UFH may be either 0.3-0.6 IU/mL or 0.3-0.7 IU/mL based on the clinical setting for anticoagulant therapy and the associated nomogram used. For heparin dosing guidelines based on clinical scenario and Heparin Assay results, please refer to local Pharmacy and the [facility] Guidelines for Anticoagulation therapy available on the [facility] intranet at:[email or web address]/Pharmacy/Pages/[place]_Guidelines_for_Anticoagu.aspx Performed By: #### R ENAL ####[id number] [place] [address] HEPARIN ASSAY,UFH 0.4 IU/mL Normal [facility] Comment on above: Result Comment: The therapeutic reference range for UFH may be either 0.3-0.6 IU/mL or 0.3-0.7 IU/mL based on the clinical setting for anticoagulant therapy and the associated nomogram used. For heparin dosing guidelines based on clinical scenario and Heparin Assay results, please refer to local Pharmacy and the [facility] Guidelines for Anticoagulation therapy available on the [facility] intranet at:[email or web address]/Pharmacy/Pages/[place]_Guidelines_for_Anticoagu.aspx Performed By: #### C OAGS ####[id number] [place] [address] HEPARIN ASSAY,UFH 0.2 IU/mL Normal [facility] Comment on above: Result Comment: The therapeutic reference range for UFH may be either 0.3-0.6 IU/mL or 0.3-0.7 IU/mL based on the clinical setting for anticoagulant therapy and the associated nomogram used. For heparin dosing guidelines based on clinical scenario and Heparin Assay results, please refer to local Pharmacy and [facility] Guidelines for Anticoagulation therapy available on the [facility] intranet at:[email or web address]/Pharmacy/Pages/[place]_Guidelines_for_Anticoagu.aspx Performed By: #### C OAGS ####[id number] [place] [address] CBCon 03-20-2018 Erythrocyte distribution width Auto Ratio (RBC) 13.1 % Normal 11.5 - 14.5 [facility] Comment on above: Performed By: #### C OAGS ####[id number] [id number] Hematocrit Auto Volume Fraction (Bld) 40.8 % Low 41.0 - 52.0 [facility] Comment on above: Performed By: #### C OAGS ####[id number] [id number] Hemoglobin mass conc (Bld) 14.0 g/dL Normal 13.5 - 17.5 [facility] Comment on above: Performed By: #### C OAGS ####[id number] [place] [address] MCHC Auto mass conc (RBC) 34.3 g/dL Normal 32.0 - 36.0 [facility] Comment on above: Performed By: #### C OAGS ####[id number] [place] [address] MCV Auto Entitic volume (RBC) 91 fL Normal 80 - 100 [facility] Comment on above: Performed By: #### C OAGS ####[id number] [place] [address] Nucleated RBC/100 WBC Ratio (Bld) 0.0 /100 WBC Normal 0.0-0.0 [facility] Comment on above: Performed By: #### C OAGS ####[id number] [place] [address] Platelets Auto #/vol (Bld) 252 10*3/uL Normal 150 - 450 [facility] Comment on above: Performed By: #### C OAGS ####[id number] [place] [address] RBC Auto #/vol (Bld) 4.48 x10E12/L Low 4.50 - 5.90 [facility] Comment on above: Performed By: #### C OAGS ####[id number] [place] [address] WBC Auto #/vol (Bld) 11.0 10*3/uL Normal 4.4 - 11.3 [facility] Comment on above: Performed By: #### C OAGS ####[id number] [place] [address] Clinical Event Note-Regardin g PE per Dr. Angel 03-20-2018 Clinical Event Note-Regarding PE per Dr. Yu Event:Topic: Regarding PE per Dr. YuDetails:Per Dr. Yu would like IVC Filter placed today 03/20/2018, and ideallystabilization for one week would be optimal.Will advice Dr. Gaston. Provider / Team Contact Information:Provider/Team Contact Info-Pager Number: cardiac surgery [phone] Electronic Signatures:Gilda Tai (INSTRUCTOR GROUND SERVICES-PAPER SLITTER) (Signed 20-Mar-2018 11:53)Authored: Event, Provider / Team Contact Information Last Updated: 20-Mar-2018 11:53 by Gilda Tai (INSTRUCTOR GROUND SERVICES-PAPER SLITTER) [facility] Consult-Endocrinologyon 11-0 Consult-Endocrino logy Service:Service: Endocrinology History of Present Illness:Admission Reason: Transferred for CABG evalHPI:PCP: Sal Hernandez ([facility]) - Levi Sinha: [place] 67 yo WM with no known history of CAD, who has a past medical history of HTN,HLD, T2DM, Bunn's disease, hypothyroidism, COPD, AKASH on CPAP, prostate spring/p prostatectomy in 2011, and psoriasis who [facility] on [facility]/18 for CABG eval. Family history significant for Stoke, CT, CHF, HTN, DM and DLD. He quit wplgpuz19 years ago. Has an occasional beer, and denies any drug use. 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 Endocrine Consulted for evalaution of Bunn disease and HCt dosing preop. 12 points ROS obtained and negative unless otherwise stated above Outside Hospital cardiac work up:CTA at [place]:Pulmonary emboli involving the bilateral lobar segmental, and severalsubsegmental branches (RUL, RML, RLL, FIDEL, LLL). TTE at [facility] 03/15/18:EF 60-65% PMH: HTN, HLD, T2DM, Brigida's disease, hypothyroidism, COPD, AKASH on CPAP,prostate ca s/p prostatectomy in 2011, psoriasis, remote hepatitis B, priorGERD, lumbar Degenerative disk disease, arthritis, kidney stones (current,small), cataract, plantar fasciitis PSH: prostatectomy 2011, R cataract surgery, cholecystectomy, appendectomy,sinus surgery, vasectomy, bilat carpal tunnel release surgery, ganglion cystremoval from hands, cystoscopy 2 weeks ago for microscopic hematuria, rootcanal 2 weeks ago. FHx: CAD/CT, cancer, DM, HTN, migraines, CVA Social: former [...] No Known Allergies: Objective: Objective Information: T ISFMOwU4Jylax32.78136305/7496% Date/Time03/20 11: 11: 11: 11: 11:07Range(36.1C - 37.1C ) (67 - 90 ) (16 - 18 ) (119 - 174 )/ (74 - 101 )(95% - 97% )Highest temp of 37.1 C was recorded at 03/20 5:35 Physical Exam: Constitutional: central obesity , moonlike Facies , acanthosis nigricans, skintags , Supraclavicular fat fkqwc3e1 RRRBP high up to 170 systolic in [...] Bolus) Injectable: 4000 unit(s) IntraVenous Push Every 5Dmngl1. Hydrocortisone: 20 mg Oral 2 Times a Day9. Influenza Virus (Inactive) HIGH DOSE Adult Vaccine: 0.5 mL CfbcjLmfdgafqRjar72. Insulin Lispro Mild Corrective Scale: unit(s) SubCutaneous 3 Times a DayBefore Meals11. Levothyroxine: 150 microgram(s) Oral Daily12. Mupirocin 2%: 0.5 application(s) Each Nostril 2 Times a Day13. Pantoprazole: 40 mg Oral Daily14. Polyethylene Glycol: 17 gram(s) Oral Daily15. rOPINIRole: 2 mg Oral 3 Times a Day PRN Medications -- 1. Dextrose 50% in Water Injectable: 25 gram(s) IntraVenous Push Every 69Swksxai6. Glucagon Injectable: 1 mg IntraMuscular Every 15 Minutes Recent Lab Results: Results: I have reviewed these laboratory results: Glucose_POCT Trending View Umkcyo25-Myy-4969 08:28:00 19-Mar-2018 21:30:00 19-Mar-2018 18:25:00 19-Mar-2018 13:58:00 19-Mar-2018 08:27:00Glucose-NFIM750 H 308 H 226 H 175 H 172 H Renal Function Panel Trending View Dzjfwa87-Pft-5622 17:57:00 19-Mar-2018 00:39:00Glucose, Opftm717 H 206 SMY362 138K3.9 4.9ZY094 102Bicarbonate, Serum23 23Anion Gap, Serum16 55YSP12 H 08MHARH6.36 H 1.42 HGFR-Non Xibcuiqn49 A 50 AGFR- Subeedit77 61Calcium, Serum9.4 9.2Phosphorus, Serum3.6 3.5ALB3.9 4.1 Hepatic [...] a past medical history of HTN,HLD, T2DM, Bunn's disease, hypothyroidism, COPD, AKASH on CPAP, prostate spring/p prostatectomy in 2011, and psoriasis who was transferred to [facility] on 03/18 for CABG eval.Endocrine consulted fr evlaution of Bunn disease and treatment periop Patient is o supratherapeutic dose of HCT 20-0-20 , fludrocortisone 0.1 ,mgdailyPAtient has uncontrolled HTn and uncontrolled BS REcs:-Please decrease Fludro to 0.05 mg daily-Please change HCt to 10-5-2.5 mg at 5qo-63wp-0jr DAILY-On the day of the surgery please [...] patient (as noted in the above attestation) [id number] Electronic Signatures:Starr Quevedo) (Signed 21-Mar-2018 10:00)Authored: Signature/Cosignature/Attestat ionCo-Signer: Service, History of Present Illness, Allergies, Objective,Assessment/Recommend ations, Signature/Cosignature/Attestat Job Garrison ( (Resident)) (Signed 20-Mar-2018 11:37)Authored: Service, History of Present Illness, Allergies, ObjectiveHasmukh Stephenson ( (Resident)) (Signed 20-Mar-2018 16:47)Entered: Objective, Assessment/Recommendations,Sig nature/Cosignature/Attestation Authored: Service, History of Present Illness, Allergies, Objective,Assessment/Recommend ations, Signature/Cosignature/Attestat ion Last Updated: 21-Mar-2018 10:00 by Starr Quevedo) [facility] Consult-Pulmonologyon 2017 Consult-Pulmonolo gy Service:Service: Pulmonology Consult:Consult [...] sided chest pain, associated with nausea. 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 He quit smoking 20 years ago.Social Hx: Has an occasional beer, and denies any drug use. 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 Hydrocortisone: 20 mg Oral 2 Times a Day9. Influenza Virus (Inactive) HIGH DOSE Adult Vaccine: 0.5 mL GuihjJylqcfysWugk05. Insulin Lispro Mild Corrective Scale: unit(s) SubCutaneous 3 Times a DayBefore Meals11. Levothyroxine: 150 microgram(s) Oral Daily12. Mupirocin 2%: 0.5 application(s) Each Nostril 2 Times a Day13. Pantoprazole: 40 mg Oral Daily14. Polyethylene Glycol: 17 gram(s) Oral Daily15. rOPINIRole: 2 mg Oral 3 Times a Day PRN Medications -- 1. Dextrose 50% in Water Injectable: 25 gram(s) IntraVenous Push Every 21Lhiglwx7. Glucagon Injectable: 1 mg IntraMuscular Every 15 [...] A4C: 17.4cm2LA Area A2C: 14.2 cm2LA Major Barry A4C: 6.0 cmLA Major Barry A2C: 4.7 cmLA Volume Index: 15.2 ml/m2RA VOLUME BY A/L METHOD: Normal Ranges:RA Area A4C: 12.8 uu2U-KWWV MEASUREMENTS: Normal Ranges:Ao Root: 2.90 cm (2.0-3.7cm)LAs: [...] patient (as noted in the above attestation) [id number]-6051Mqjhlvbj/ Additional FindingsConsulted for unprovoked PE. MOdest clot [...] nature/Cosignature/Attestation Last Updated: 21-Mar-2018 11:03 by Zac uY (DO) Normal [facility] Daily Progress Note-Cardiac Surgeryon 03-20-2018 Protein mass conc Consult Type: subseq uent visit/care Service: Cardiac Surgery Subjective Data:DON ELKINS is a 67 year old Male who is Hospital Day # 3. Objective Data: Objective Information:T WPJEKdZ8Anzsg00.24363009/43157 %Date/Time03/20 11:0703/20 16: 16:5303/20 16: 16:53Range(36.1C - 37.1C ) (67 - 90 ) (17 - 20 ) (119 - 174 )/ (74 - 102 )(96% - 97% )Highest temp of 37.1 C was recorded at 03/20 5:35 Pain with Activity reported at 03/20 20:26: 0Pain at Rest reported at 03/20 20:26: 0 Rquicst70/2 5:35: Weight in kg (Weight (kg)) 108.911 [...] Bolus) Injectable: 4000 unit(s) IntraVenous Push Every 4Wkofg8. Hydrocortisone: 10 mg Oral 8. Hydrocortisone: 5 [...] Water Injectable: 25 gram(s) IntraVenous Push Every 75Dlhbrcp1. Glucagon Injectable: 1 mg IntraMuscular Every 15 [...] NEGATIVE CUTOFF LEVEL: 150 NG/ML The metabolite I-amctp-stlxgcbwifjrak (LAAM) is not detected by this method [...] Urine YELLOW Reference Range: STRAW,YELLOWAppearance, Urine CLEARSpecific [place], Urine 1.013pH, Urine 6.0Protein, Urine NEGATIVEGlucose, Urine [...] a past medical history of HTN,HLD, T2DM, Bunn's disease, hypothyroidism, COPD, AKASH on CPAP, prostate spring/p prostatectomy in 2011, and psoriasis [facility] for CABG eval. [place] dys[place]. He as found to havebilat PEs, was started on Heparin gtt, and transferred to [facility]. He wasfound to have a troponin leak at 2.25. Cardiology was consulted and the patientwas diagnosed with ACS, NSTEMI. He underwent a TTE and cath. He had normal EF,mild AI, and triple vessel CAD so was transferred to [facility] for CABG eval.Cardiac surgery consulted 03/19 for [...] clinically Signature/Cosignature/Attestat ion:Provider/Team Contact Info-Pager Numbercardiac surgery [phone] Electronic Signatures:Mary Munroe (INSTRUCTOR GROUND SERVICES-PAPER SLITTER) (Signed 20-Mar-2018 20:40)Authored: Service, Subjective Data, Objective Data, Assessment and Plan,Signature/Cosignature/Att estation Last Updated: 20-Mar-2018 20:40 by Mary Munroe (INSTRUCTOR GROUND SERVICES-PAPER SLITTER) Normal [facility] Daily Progress Note-Cardiolo augustinon 03-20-2018 [...] Hydrocortisone per Endocrinology Objective Data: Objective Information:T UOLMYxD8Hhvbm64.69184951/20214 %Date/Time03/20 11: 16: 16: 16: 16:53Range(36.1C - 37.1C ) (67 - 90 ) (17 - 20 ) (119 - 174 )/ (74 - 102 )(96% - 97% )Highest temp of 37.1 C was recorded at 03/20 5:35 Pain with Activity reported at 03/20 8:30: 0Pain at Rest reported at 03/20 8:30: 0 Xjtiral08/2 5:35: Weight in kg (Weight (kg)) 108.911 5:35: Weight in lbs ((lbs)) 240 Physical Exam: Constitutional: Resting in bed, NADHead/Neck: No JVDRespiratory/Thorax: CTABCardiovascular: RRR, S1 M5Ophuofybncwlojrp: soft, NT/NDExtremities: Right wrist site of catheterization intact, normal pulse. Noperipheral edemaNeurological: alert and oriented k8Yphcpcvumykpg: Appropriate mood and behaviorSkin: psoriasis plaque over [...] Bolus) Injectable: 4000 unit(s) IntraVenous Push Every 3Txozt2. Hydrocortisone: 10 mg Oral 8. Hydrocortisone: 5 [...] Water Injectable: 25 gram(s) IntraVenous Push Every 22Azthzoo0. Glucagon Injectable: 1 mg IntraMuscular Every 15 Minutes Recent Lab Results: Results: I have reviewed these laboratory results: Glucose_POCT Trending View Yrtgxr09-Agm-3226 17:30:00 20-Mar-2018 13:24:00 20-Mar-2018 08:28:00 19-Mar-2018 21:30:00 19-Mar-2018 18:25:00Glucose-EBCR826 H 234 H 195 H 308 H [...] A4C: 17.4cm2LA Area A2C: 14.2 cm2LA Major Barry A4C: 6.0 cmLA Major Barry A2C: 4.7 cmLA Volume Index: 15.2 ml/m2RA VOLUME BY A/L METHOD: Normal Ranges:RA Area A4C: 12.8 ap9C-LFYH MEASUREMENTS: Normal Ranges:Ao Root: 2.90 cm (2.0-3.7cm)LAs: [...] T2DM, Addisson's, GERD, prostate ca s/p prostatectomy [id number], hypothyroidism, psoriasis, and most recently diagnosed with a PE andmultivessel CAD transferred to medicine at [facility] from [facility] on03/18 for CABG eval. Multiple PEs- [...] 7.9%- BS 172, 175, 226, 308, 195 Bunn's disease- Reduce fludrocortisone to 0.05 mg daily- Reduce hydrocortisone to 10mg/5mg/2.5mg- Follow Endocrine recs pre op GERD- Continue home PPI HTN- Holding LAUREN- 120/79 - 171/93- Increase Carvedilol to 12.5mg BID- Monitor BP with reducing Florinef dose DLD- Atorva 40mg- lipids 155/44/82/141 HypothyroidismTSH 2.51- Continue home levothyroxine GI ppx: on PPICode status: Full Electronic Signatures:Vito Patino (INSTRUCTOR GROUND SERVICES-PAPER SLITTER) (Signed 20-Mar-2018 19:13)Authored: Service, Subjective Data, Objective Data, Assessment and Plan,Signature/Cosignature/Att estationMor Calderon) (Signed 01-Apr-2018 13:54)Co-Signer: Service, Subjective Data, Objective Data, Assessment and Plan,Signature/Cosignature/Att estation Last Updated: 01-Apr-2018 13:54 by Mor Calderon) Normal [facility] GLUCOSE-POCTon 03-20-2018 Glucose mass conc 243 mg/dL High 74 - 99 [facility] Comment on above: Performed By: #### C OAGS ####[id number] [place] [address] Glucose mass conc 234 mg/dL High 74 - 99 [facility] Comment on above: Performed By: #### C OAGS ####[id number] [place] [address] Glucose mass conc 195 mg/dL High 74 - 99 [facility] Comment on above: Performed By: #### C BC ####[id number] [place] [address] HEMOGLOBIN A1Con 03-20-2018 Glucose mass conc Canceled Normal [facility] Comment on above: Order Comment: TEST HEMOGLOBIN A1C WAS CANCELLED, 03/20/2018 18:41 DUPLICATE ORDER. Performed By: #### C OAGS ####[id number] [place] [address] Hemoglobin A1c/Hemoglobin.to romy mass fraction (Bld) Canceled Normal [facility] Comment on above: Order Comment: TEST HEMOGLOBIN A1C WAS CANCELLED, 03/20/2018 18:41 DUPLICATE ORDER. Result Comment: Diag nosis of Diabetes-Adults Non-Diabetic: < or = 5.6% Increased risk for developing diabetes: 5.7-6.4% Diagnostic of diabetes: > or = 6.5%. Monitoring of Diabetes Age (y) Therapeutic Goal (%) Adults: >18 <7.0 Pediatrics: 13-18 <7.5 7-12 <8.0 0- 6 7.5-8.5 [place] [employer]. Diabetes Care 33(S1), May 2009. Performed By: #### C OAGS ####[id number] [place] [address] HEPARIN ASSAY,UFHon 03-20-20 18 HEPARIN ASSAY,UFH 0.1 IU/mL Normal [facility] Comment on above: Result Comment: The therapeutic reference range for UFH may be either 0.3-0.6 IU/mL or 0.3-0.7 IU/mL based on the clinical setting for anticoagulant therapy and the associated nomogram used. For heparin dosing guidelines based on clinical scenario and Heparin Assay results, please refer to local Pharmacy and the [facility] Guidelines for Anticoagulation therapy available on the [facility] intranet at:[email or web address] Performed By: #### C OAGS ####[id number] [place] [address] MAGNESIUMon 03-20-2018 Magnesium mass conc Canceled Normal [facility] Comment on above: Order Comment: TEST MAGNESIUM WAS CANCELLED, 03/20/2018 08:04 NO SPECIMEN RECEIVED IN LAB. Performed By: #### C BC ####[id number] [place] [address] RENAL FUNCTION PANELon 03-20 Albumin mass conc 3.9 g/dL Normal 3.4 - 5.0 [facility] Comment on above: Performed By: #### C OAGS ####[id number] [place] [address] Anion gap 3 molar conc 16 mmol/L Normal 10 - 20 [facility] Comment on above: Performed By: #### C OAGS ####[id number] [place] [address] Calcium mass conc 9.0 mg/dL Normal 8.6 - 10.6 [facility] Comment on above: Performed By: #### C OAGS ####[id number] [place] [address] Chloride molar conc 102 mmol/L Normal 98 - 107 [facility] Comment on above: Performed By: #### C OAGS ####[id number] [place] [address] Creatinine mass conc 1.38 mg/dL High 0.50 - 1.30 [facility] Comment on above: Performed By: #### C OAGS ####[id number] [place] [address] GFR- AM. 62 mL/min/1.73m2 Normal >60 [facility] Comment on above: Result Comment: CALC ULATIONS OF ESTIMATED GFR ARE PERFORMED USING THE MDRD STUDY EQUATION FOR THE IDMS-TRACEABLE CREATININE METHODS. CLIN CHEM 2007;53:766-72 Performed By: #### C OAGS ####[id number] [place] [address] GFR-NON AM. 51 mL/min/1.73m2 Abnormal >60 [facility] Comment on above: Performed By: #### C OAGS ####[id number] [place] [address] Glucose mass conc 201 mg/dL High 74 - 99 [facility] Comment on above: Performed By: #### C OAGS ####[id number] [place] [address] HCO3 molar conc (Bld) 24 mmol/L Normal 21 - 32 [facility] Comment on above: Performed By: #### C OAGS ####[id number] [place] [address] Phosphate mass conc 4.3 mg/dL Normal 2.5 - 4.9 [facility] Comment on above: Result Comment: The performance characteristics of phosphorus testing in heparinized plasma have been validated by the individual laboratory site where testing is performed. Testing on heparinized plasma is not approved by the FDA; however, such approval is not necessary. Performed By: #### C OAGS ####[id number] [place] [address] Potassium molar conc 4.0 mmol/L Normal 3.5 - 5.3 [facility] Comment on above: Performed By: #### C OAGS ####[id number] [place] [address] Sodium molar conc 138 mmol/L Normal 136 - 145 [facility] Comment on above: Performed By: #### C OAGS ####[id number] [place] [address] Urea nitrogen mass conc 22 mg/dL Normal 6 - 23 [facility] Comment on above: Performed By: #### C OAGS ####[id number] [place] [address] VAS LAB Arterial Duplex Ult adriel 03-20-2018 [facility] Arterial Duplex Ultrasound [facility], [address] [place] [address] and Vascular Lab Report Upper Arterial Duplex Ultrasound Patient Name: DON ELKINS Zaid Physician: [id number] Olesya Fall MDStudy Date: 03/20/2018 Referring Physician: [id number] Calderon MDMRN/PID: [id number] PCP:Accession/Order#: [id number] CC Report to:Date of : 1950 Technologist: Jasvir Owens RVTGender: Cristhian Technologist 2:Admission Status: Inpatient Location Performed: [facility] Diagnosis/ICD: I24.8-Cardiac Ischemia;Z01.818-Encounter for other preprocedural examinationProcedure/CPT: 25289 Upper arterial Duplex Limited-10585 CONCLUSIONS:Right Upper Arterial: The right radial artery is patent with triphasic waveforms.Left Upper Arterial: The left radial artery is patent with triphasic waveforms. Imaging & Doppler Findings: Right Left PSV Waveform PSV Rdodjnfn33 cm/s Triphasic Radial 87 cm/s Triphasic Right LeftRadial Diam P 2.6 mm 2.2 mmRadial Diam M 2.5 mm 2.2 mmRadial Diam D 2.3 mm 2.0 mm 16021 Olesya Fall MD Final Normal [facility] VASC LAB Carotid Artery Dupl ex Ultrasounon 03-20-2018 VASC LAB Carotid Artery Duplex Ultrasoun [facility], [address] [place] [address] and Vascular Lab Report Carotid Artery Duplex Ultrasound Patient Name: DON ELKINS Reading Physician: [id number] Olesya Fall MDStudy Date: 03/20/2018 Referring Physician: [id number] Calderon MDMRN/PID: [id number] PCP:Accession/Order#: [id number] CC Report to:Date of : 1950 Technologist: Jasvir Owens RVTGender: Cristhian Technologist 2:Admission Status: Inpatient Location Performed: [facility] Diagnosis/ICD: I24.8-Cardiac Ischemia;Z01.818-Encounter for other preprocedural examinationProcedure/CPT: 93799 Cerebrovacular Carotid Duplex scan complete-74180 CONCLUSIONS:Right Carotid: Findings are consistent with less [...] 206 cm/s Right LeftICA/CCA Ratio 1.3 0.8 [id number] Olesya Fall MD Final Normal [facility] VASC LAB PVR (Arterial Physi ologic) ABIon 03-20-2018 V[facility] LAB PVR (Arterial Physiologic) BROOKS [facility], [address] [place], [place] [id number] and Vascular Lab Report PVR BROOKS Patient Name: DON ELKINS Zaid Physician: [id number] Olesya Fall MDStudy Date: 03/20/2018 Referring Physician: [id number] Calderon MDMRN/PID: [id number] PCP:Accession/Order#: [id number] CC Report to:Date of : 1950 Technologist: Jasvir Owens RVTGender: Cristhian Technologist 2:Admission Status: Inpatient Location Performed: [facility] Diagnosis/ICD: I24.8-Cardiac Ischemia;Z01.818-Encounter for other preprocedural examinationProcedure/CPT: 10664 Peripheral artery BROOKS Only-74872 CONCLUSIONS:Right Upper PVR: Baseline indices less than [...] Right LeftBrachial Pressure 146 mmHg 143 mmHg [id number] Fall MD Final Normal [facility] VASC LAB PVR (Arterial Physiologic) BROOKS [facility], [address] [place], [place] [id number] and Vascular Lab Report PVR BROOKS Patient Name: DON ELKINS Reading Physician: [id number] Olesya Fall MDStudy Date: 03/20/2018 Referring Physician: [id number] Mor Calderon MDMRN/PID: [id number] PCP:Accession/Order#: [id number] CC Report to:Date of : 1950 Technologist: Jasvir LAYNETGender: Cristhian Technologist 2:Admission Status: Inpatient Location Performed: [facility] Diagnosis/ICD: I73.9-Peripheral vascular disease, unspecified;I24.8-Cardiac Ischemia;Z01.818-Encounter for other preprocedural examinationProcedure/CPT: 54280 Peripheral artery BROOKS Only-32506 CONCLUSIONS:Right Lower PVR: No evidence of arterial [...] and may make absolute Segmental Limb Pressures (FLEXOGRAPHIC PRESS HELPER) unreliable. Triphasic flow is noted in the [...] Right LeftBrachial Pressure 146 mmHg 145 mmHg [id number] Olesya Fall MD Final Normal [facility] VASC LAB Pre-op Vessel Vein Mappingon 03-20-2018 VASC LAB Pre-op Vessel Vein Mapping [facility], [address] [place] [address] and Vascular Lab Report Pre-op Vein Mapping Lower Patient Name: DON ELKINS Zaid Physician: [id number] Olesya Fall MDStudy Date: 03/20/2018 Referring Physician: [id number] MANRIQUEZRN/PID: [id number] PCP:Accession/Order#: [id number] CC Report to:Date of : 1950 Technologist: Jasvir Mckoy: Cristhian Technologist 2:Admission Status: Inpatient Location Performed: [facility] Diagnosis/ICD: Z01.818-Encounter for other preprocedural examination;I24.8-Cardiac IschemiaProcedure/CPT: 80430 Vein mapping complete-83613 CONCLUSIONS:Left Lower Vein Mapping: The left great [...] mmSSV Prox FibroticSSV Mid FibroticSSV Distal Fibrotic 72315 Olesya Fall MD Final Normal [facility] ARTERIAL BLOOD GASon 018 BASE EXCESS-BLOOD -0.5 mmol/L Normal -2.0 - 3.0 [facility] Comment on above: Performed By: #### E MRAD ####NO LOCATION NEEDED Oxygen ppres (BldA) 79 mm[Hg] Low 85 - 95 [facility] Comment on above: Performed By: #### E MRAD ####NO LOCATION NEEDED PCO2 39 mmHg Normal 38 - 42 [facility] Comment on above: Performed By: #### E MRAD ####NO LOCATION NEEDED pH (Bld) 7.40 [pH] Normal 7.38 - 7.42 [facility] Comment on above: Performed By: #### E MRAD ####NO LOCATION NEEDED RBC Auto #/vol (Bld) 24.2 mmol/L Normal 22.0 - 26.0 [facility] Comment on above: Performed By: #### E MRAD ####NO LOCATION NEEDED SO2 96 % Normal 94 - 100 [facility] Comment on above: Performed By: #### E MRAD ####NO LOCATION NEEDED ARTERIAL H+Hon 03-19-2018 Hematocrit Auto Volume Fraction (Bld) 41.0 % Normal 41.0 - 52.0 [facility] Comment on above: Performed By: #### H HNA1 ####[id number] [place] [address] HGB,CALCULATED 13.9 g/dL Normal 13.5 - 17.5 [facility] Comment on above: Performed By: #### H HNA1 ####[id number] [id number] ARTERIAL POTASSIUMon 018 Potassium molar conc 3.7 mmol/L Normal 3.5 - 5.3 [facility] Comment on above: Performed By: #### P OTGA ####[id number] [id number] Admission Risk Screen - Adul ton 03-19-2018 [...] Advance Directive typeLiving Will, Durable Power of Stereotyper for Healthcare Living Will AvailabilityLiving Will not available now Living Will [id number] Durable Power of Stereotyper AvailabilityDPOA not available now Durable Power of Stereotyper [id number] Durable Power of Stereotyper contact (name and number)Rikki Cotton Screen:Type of [...] Learning Preferencesskill demonstration Cultural Considerationsnone Developmental Considerationsnone Protestant Considerationsnone Learning Assessment (Other Learner): Other learner [...] Spiritual Screen: Are there any cultural, spiritual, roman catholic practices/values/needs that areimportant for us to knowno CAGE:Is this an injured patient at a Trauma Center ([place] [facility]): no Vaccinations:Vaccination - Influenza Vaccination Screen: Is [...] 19-Mar-2018 00:38 by Jeannie Shelton (ANDREA) Normal [facility] BN ORTHOPANTOGRAMon 03-19-20 18 BN ORTHOPANTOGRAM Name: DON ELKINS STUDY:BN ORTHOPANTOGRAM; 03/19/2018 12:56 pm INDICATION:Signs/Symptoms: tooth pain, s/p recent root canal, pre op CABG [id number]. COMPARISON:None. ORDERING CLINICIAN:VITO PATINO TECHNIQUE:ORTHOPANTOGRAM FINDINGS:Suspected dental caries right maxillary premolar. No other suspiciouslucency seen. Dental amalgam noted. IMPRESSION: Suspected periapical abscess right maxillary premolar.Electronically signed by: SULMA FLOR MD Normal [facility] CBCon 03-19-2018 Erythrocyte distribution width Auto Ratio (RBC) 13.0 % Normal 11.5 - 14.5 [facility] Comment on above: Performed By: #### C BC ####[id number] [place] [address] Hematocrit Auto Volume Fraction (Bld) 39.6 % Low 41.0 - 52.0 [facility] Comment on above: Performed By: #### C BC ####[id number] [place] [address] Hemoglobin mass conc (Bld) 13.4 g/dL Low 13.5 - 17.5 [facility] Comment on above: Performed By: #### C BC ####[id number] [place] [address] MCHC Auto mass conc (RBC) 33.8 g/dL Normal 32.0 - 36.0 [facility] Comment on above: Performed By: #### C BC ####[id number] [place] [address] MCV Auto Entitic volume (RBC) 92 fL Normal 80 - 100 [facility] Comment on above: Performed By: #### C BC ####[id number] [place] [address] Nucleated RBC/100 WBC Ratio (Bld) 0.0 /100 WBC Normal 0.0-0.0 [facility] Comment on above: Performed By: #### C BC ####[id number] [place] [address] Platelets Auto #/vol (Bld) 259 10*3/uL Normal 150 - 450 [facility] Comment on above: Performed By: #### C BC ####[id number] [place] [address] RBC Auto #/vol (Bld) 4.32 x10E12/L Low 4.50 - 5.90 [facility] Comment on above: Performed By: #### C BC ####[id number] [place] [address] WBC Auto #/vol (Bld) 10.8 10*3/uL Normal 4.4 - 11.3 [facility] Comment on above: Performed By: #### C BC ####[id number] [place] [address] Erythrocyte distribution width Auto Ratio (RBC) 13.0 % Normal 11.5 - 14.5 [facility] Comment on above: Performed By: #### C BC ####[id number] [place] [address] Hematocrit Auto Volume Fraction (Bld) 42.4 % Normal 41.0 - 52.0 [facility] Comment on above: Performed By: #### C BC ####[id number] [place] [address] Hemoglobin mass conc (Bld) 14.7 g/dL Normal 13.5 - 17.5 [facility] Comment on above: Performed By: #### C BC ####[id number] [place] [address] MCHC Auto mass conc (RBC) 34.7 g/dL Normal 32.0 - 36.0 [facility] Comment on above: Performed By: #### C BC ####[id number] [place] [address] MCV Auto Entitic volume (RBC) 91 fL Normal 80 - 100 [facility] Comment on above: Performed By: #### C BC ####[id number] [place] [address] Nucleated RBC/100 WBC Ratio (Bld) 0.2 /100 WBC Normal 0.0-0.0 [facility] Comment on above: Performed By: #### C BC ####[id number] [place] [address] Platelets Auto #/vol (Bld) 282 10*3/uL Normal 150 - 450 [facility] Comment on above: Performed By: #### C BC ####[id number] [place] [address] RBC Auto #/vol (Bld) 4.68 x10E12/L Normal 4.50 - 5.90 [facility] Comment on above: Performed By: #### C BC ####[id number] [place] [address] WBC Auto #/vol (Bld) 12.7 10*3/uL High 4.4 - 11.3 [facility] Comment on above: Performed By: #### C BC ####[id number] [place] [address] COAGULATION SCREENon 018 aPTT Coag time (Bld) 31 s Normal 28 - 38 [facility] Comment on above: Result Comment: Note new reference range as of 03/10/2018. THE APTT IS NO LONGER USED FOR MONITORING UNFRACTIONATED HEPARIN THERAPY. FOR MONITORING HEPARIN THERAPY, USE THE HEPARIN ASSAY. Performed By: #### C OAGS ####[id number] [id number] INR Coag RelTime (PPP) 1.4 {INR} High 0.9 - 1.1 [facility] Comment on above: Performed By: #### C OAGS ####[id number] [id number] Prothrombin time (PT) Coag time (PPP) 16.1 s High 9.7 - 12.7 [facility] Comment on above: Result Comment: Note new reference range as of 03/10/2018. Performed By: #### C OAGS ####[id number] [place] [address] COOX PANEL, ARTERIALon 03-19 DEOXY HGB 3.7 % Normal 0.0 - 5.0 [facility] Comment on above: Performed By: #### C OOXA ####[id number] [place] [address] Hemoglobin mass conc (Bld) 1.1 % Normal [facility] Comment on above: Result Comment: REF VALUESNONSMOKERS 0.5-1.5%SMOKERS 0.5-10.0% Performed By: #### C OOXA ####[id number] [place] [address] Hemoglobin mass conc (Bld) 14.9 g/dL Normal 13.5 - 17.5 [facility] Comment on above: Performed By: #### C OOXA ####[id number] [place] [address] MET HGB 1.2 % Normal 0.0 - 1.5 [facility] Comment on above: Performed By: #### C OOXA ####[id number] [place] [address] OXY HGB 93.9 % Low 94.0 - 98.0 [facility] Comment on above: Performed By: #### C OOXA ####[id number] [id number] Clinical Event Note-STS Scor e - Cardiac Surgeryon 03-19-2018 Clinical Event Note-STS Score - Cardiac Surgery Event:Topic: STS Score - Cardiac SurgeryDetails:Procedure: CAB OnlyRisk of Mortality: 1.006%Morbidity or Mortality: 13.941%Long Length of Stay: 4.79%Short Length of Stay: 47.443%Permanent Stroke: 0.962%Prolonged Ventilation: 8.167%DSW Infection: 0.651%Renal Failure: 5.562%Reoperation: 4.472% Provider / Team Contact Information:Provider/Team Contact Info-Pager Number: [phone] cardiac surgery Electronic Signatures:Herminia Kern (PAC) (Signed 19-Mar-2018 18:40)Authored: Event, Provider / Team Contact Information Last Updated: 19-Mar-2018 18:40 by Herminia Kern (PAC) Normal [facility] Consult-Cardiac Surgeryon Consult-Cardiac Surgery Service:Service: [...] psoriasis [facility] on [facility]/18 for CABG eval. Patient reports 2 month h/o intermittent exertional left sided chest painlasting less than 30 min, relieved with rest, with no other associatedsymptoms. He woke up 03/16 at 1AM with chest pressure associated with dyspnea,and his took him to [facility] where he was diagnosed withbilateral PEs, started on heparin gtt, then transferred to [facility]. There, hewas found to have a trop [...] He reports afamily history significant for Stoke, CT, CHF, HTN, DM and DLD. He quit gohsnba38 years ago. Has an occasional beer, and denies any drug use. 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 Cardiac surgery consulted 03/19 for CABG eval. Pt currently asymptomatic andhemodynamically stable. 12 points ROS obtained and negative unless otherwise stated above Outside Hospital cardiac work up:CTA at [place]:Pulmonary emboli involving the bilateral lobar segmental, and severalsubsegmental branches (RUL, RML, RLL, FIDEL, LLL). LHC/cors at [facility] 03/16/18: by Levi KirnusLM: 10-20%LAD prox: 30%LAD mid: 95%Diag 3rd: 99%RCA: 85 %PLV: 50%Circ: 95% TTE at [facility] 03/15/18:EF 60-65%Mild concentric LVHLV wall motion is normalMild LA dilationpseudonormalized LV relaxation, which is associated with grade II/IV or mild tomoderate diastolic dysfunctionMild aortic regurgitation PMH: HTN, HLD, T2DM, Bunn's disease, hypothyroidism, COPD, AKASH on CPAP,prostate ca s/p prostatectomy in 2011, psoriasis, remote hepatitis B, priorGERD, lumbar Degenerative disk disease, arthritis, kidney stones (current,small), cataract, plantar fasciitis PSH: prostatectomy 2011, R cataract surgery, cholecystectomy, appendectomy,sinus surgery, vasectomy, bilat carpal tunnel release surgery, ganglion cystremoval from hands, cystoscopy 2 weeks ago for microscopic hematuria, rootcanal 2 weeks ago. FHx: CAD/CT, cancer, DM, HTN, migraines, CVA Social: former [...] No Known Allergies: Objective: Objective Information: T FFQUYzH6Lbkno20.01197846/8396% Date/Time03/19 3: 3: 3: 3: 3:42Range(36.6C - 36.6C ) (79 - 79 ) (20 - 20 ) (149 - 173 )/ (83 - 92 ) (96%- 97% ) Pain with Activity reported at 03/19 0:25: 0Pain at Rest reported at 03/19 0:25: 0 Ornztpa02/1 0:14: Weight in kg (Weight (kg)) 109.311/1 0:14: Weight in lbs ((lbs)) 97720/1 0:14: BMI (kg/m2) (BMI (kg/m2)) 36.646 Physical [...] Bolus) Injectable: 4000 unit(s) IntraVenous Push Every 2Cvtgi1. Hydrocortisone: 20 mg Oral 2 Times a Day9. Insulin Lispro Mild Corrective Scale: unit(s) SubCutaneous 3 Times a DayBefore Meals10. Levothyroxine: 150 microgram(s) Oral Daily11. Pantoprazole: 40 mg Oral Daily12. Polyethylene Glycol: 17 gram(s) Oral Daily13. rOPINIRole: 2 mg Oral 3 Times a Day PRN Medications --1. Dextrose 50% in Water Injectable: 25 gram(s) IntraVenous Push Every 86Leuxzzk6. Glucagon Injectable: 1 mg IntraMuscular Every 15 [...] [Mar 19 2018 9:20AM] OUTSIDE HOSPITALCTA at [place]:Pulmonary emboli involving the bilateral lobar segmental, and severalsubsegmental branches (RUL, RML, RLL, FIDEL, LLL). 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 Ptpresented to [place] with chest pressure and dyspnea. He as found to havebilat PEs, was started on Heparin gtt, and transferred to [facility]. He wasfound to have a troponin leak at 2.25. Cardiology was consulted and the patientwas diagnosed with ACS, NSTEMI. He underwent a TTE and cath. He had normal EF,mild AI, and triple vessel CAD so was transferred to [facility] for CABG eval. Cardiac surgery consulted 03/19 [...] for 81mg aspirin- Shut heparin drip off siebel solution architect to OR- Please start or continue beta danica; If unable to tolerate beta blockerplease document reason- please consult Endocrine d/t Bunn's disease- please consult Pulmonary for PE workup Thank you for the consultation. [place] [phone] with any questions or changesin patient condition. Signature/Cosignature/Attestat ion:Provider/Team Contact Info-Pager Numbercardiac surgery [phone] Electronic Signatures:Mary Munroe ([facility]) (Signed 19-Mar-2018 18:21)Authored: Service, History of Present Illness, Review Family/Social Historyand ROS, Objective, Assessment/Recommendations,Sig nature/Cosignature/Attestation Kyle Arechiga ([facility]) (Signed 19-Mar-2018 08:17)Authored: Service, Allergies, Objective, Assessment/Recommendations Last Updated: 19-Mar-2018 18:21 by Mary Munroe ([facility]) Normal [facility] DRUG SCREEN,PAIN MANAGEMENT W/ REFLEXon 03-19-2018 AMPHETAMINE SCREEN,U Negative Normal NEGATIVE [facility] Comment on above: Result Comment: CUTO FF LEVEL: 500 NG/ML Cross-reactivity has been reported with high concentrations of the following drugs: buproprion, chloroquine, chlorpromazine, ephedrine, mephentermine, fenfluramine, phentermine, phenylpropanolamine, pseudoephedrine, and propranolol. Performed By: #### D SPMR ####[id number] [place] [address] BARBITURATES SCREEN,U Negative Normal NEGATIVE [facility] Comment on above: Result Comment: CUTO FF LEVEL: 200 NG/ML Performed By: #### D SPMR ####[id number] [place] [address] BENZODIAZEPINES SCREEN,U Negative Normal NEGATIVE [facility] Comment on above: Result Comment: CUTO FF LEVEL: 200 NG/MLBenzodiazepine Confirmatory testing has been sent to a reference laboratoryand will be reported separately. Although the benzodiazepine screening testprovides rapid results; the confirmatory test provide the most sensitive andspecific assessment of drug presence or absence in the urine. Performed By: #### D SPMR ####[id number] [place] [address] CANNABINOIDS SCREEN,U Negative Normal NEGATIVE [facility] Comment on above: Result Comment: CUTO FF LEVEL: 50 NG/ML Performed By: #### D SPMR ####[id number] [place] [address] COCAINE METABOLITE SCREEN,U Negative Normal NEGATIVE [facility] Comment on above: Result Comment: CUTO FF LEVEL: 150 NG/ML Performed By: #### D SPMR ####[id number] [place] [address] DRUG SCREEN COMMENT. SEE BELOW Normal [facility] Comment on above: Result Comment: [...] laboratory medicaldirectors. Performed By: #### D SPMR ####[id number] [id number] METHADONE SCREEN,U Negative Normal NEGATIVE [facility] Comment on above: Result Comment: CUTO FF LEVEL: 150 NG/ML The metabolite Z-czbwe-wtbzrivcwiyupu (LAAM) is not detected by this method in concentrations that would be found in the urine of patients on LAAM therapy. Performed By: #### D SPMR ####[id number] [place] [address] OPIATES SCREEN,U Negative Normal NEGATIVE [facility] Comment on above: Result Comment: [...] the urine. Performed By: #### D SPMR ####[id number] [place] [address] PCP SCREEN,U Negative Normal NEGATIVE [facility] Comment on above: Result Comment: CUTO FF LEVEL: 25 NG/ML Cross-reactivity has been reported with dextromethorphan. Performed By: #### D SPMR ####[id number] [id number] Daily Progress Note-Cardiosandra chavez 03-19-2018 Protein mass conc Service: Cardiology Subjective Data:DON ELKINS is a 67 year old Male who is Hospital Day # 2. Additional Information:Received from [facility] with PE and need for CABG eval, hypertensive - Heparin gtt- Stop Metoprolol- Start Carvedilol- Plan for OR with Dr. Gaston early next week Objective Data: Objective Information:T MHCBObX9Vaqav00.58779786/8797% Date/Time03/19 13: 13: 13: 13: 13:27Range(36.6C - 37C ) (79 - 83 ) (16 - 20 ) (149 - 173 )/ (83 - 92 ) (95% -97% )Highest temp of 37 C was recorded at 03/19 8:29 Pain with Activity reported at 03/19 7:19: 0Pain at Rest reported at 03/19 7:19: 0 Serolyq82/1 0:14: Weight in kg (Weight (kg)) 109.311/1 0:14: Weight in lbs ((lbs)) 76567/1 0:14: BMI (kg/m2) (BMI (kg/m2)) 36.646 Physical Exam: Constitutional: Resting in bed, NADHead/Neck: No JVDRespiratory/Thorax: CTABCardiovascular: RRR, S1 G7Prfvrrwsmytrlvxk: soft, NT/NDExtremities: Right wrist site of catheterization intact, normal pulse. Noperipheral edemaNeurological: alert and oriented r9Suxezaqkcvpuz: Appropriate mood and behaviorSkin: psoriasis plaque over [...] Bolus) Injectable: 4000 unit(s) IntraVenous Push Every 8Wicfo3. Hydrocortisone: 20 mg Oral 2 Times a [...] Water Injectable: 25 gram(s) IntraVenous Push Every 00Evfwrxz8. Glucagon Injectable: 1 mg IntraMuscular Every 15 [...] -0.5Bicarbonate, Calculated, Arterial 24.2 Glucose_POCT Trending View Erlfrb57-Mxy-3956 13:58:00 19-Mar-2018 08:27:00Glucose-ZAUS369 H 172 H Drug Screen, Pain Management [...] NEGATIVE CUTOFF LEVEL: 150 NG/ML The metabolite K-wgxvv-lryvmjfbusmicv (LAAM) is not detected by this method [...] Urine YELLOW Reference Range: STRAW,YELLOWAppearance, Urine CLEARSpecific [place], Urine 1.013pH, Urine 6.0Protein, Urine NEGATIVEGlucose, Urine [...] A4C: 17.4cm2LA Area A2C: 14.2 cm2LA Major Barry A4C: 6.0 cmLA Major Barry A2C: 4.7 cmLA Volume Index: 15.2 ml/m2RA VOLUME BY A/L METHOD: Normal Ranges:RA Area A4C: 12.8 ww5S-PDQV MEASUREMENTS: Normal Ranges:Ao Root: 2.90 cm (2.0-3.7cm)LAs: [...] T2DM, Addisson's, GERD, prostate ca s/p prostatectomy [id number], hypothyroidism, psoriasis, and most recently diagnosed with a PE andmultivessel CAD transferred to medicine at [facility] from [facility] on03/18 for CABG eval. PE- unprovoked [...] on PPICode status: Full Electronic Signatures:Vito Patino (INSTRUCTOR GROUND SERVICES-PAPER SLITTER) (Signed 19-Mar-2018 15:16)Authored: Service, Subjective Data, Objective Data, Assessment and Plan,Signature/Cosignature/Att Mor Vasquez) (Signed 19-Mar-2018 15:57)Co-Signer: Service, Subjective Data, Objective Data, Assessment and Plan,Signature/Cosignature/Att estation Last Updated: 19-Mar-2018 15:57 by Mor Calderon) Normal [facility] Discharge Planning Noteon Discharge Planning Note Discharge Needs Assessment: Discharge Planning Assessment [id number] Discharge Planning Assessment Completed byClarisa Villalobos RN Care [phone] Readmission Within the Last 30 Daysno previous admission in last 30 days [facility] Phys[facility] [place] [facility] Learning: Factors that Impact Ability to Learnlearning disabilities, visualproblems(1) Other Factors: Functional Screen: In the recent/past 2-4 weeks, patient or family havenoticedno issues that require a rehabilitation consult at this time(2) Discharge Planning:Discharge Plannin03/19/18 0648: Patient admitted to [facility] from [facility] with 4x vesselblockage and CABG consult. recent partial root canal begun this past Fridaybut no permanent cap placed yet. Patient lives at home with and pets. Nolines or drips on admission, will restart heparin at 0900 this morning, patientwas given 10mg Eliquis at [facility] at 9pm 03/18/18. no pain onadmission. Jeannie Shelton RN 03-19-18 1040 Manager Meat Note: Met with patient to discuss dischargeplanning. [...] PCP, cannot recall name. Preferred pharmacy is [facility].Preferred pharmacy added to outpatient medication review. Patient states nodifficulty obtaining or paying for medications. Patient is not medically readyfor discharge. digital project coordinator will follow. Clarisa Villalobos RN Care [phone] 03-19-18 1530 Manager Meat Note: Patient discussed during interdisciplinaryrounds. Plan for OR next week. digital project coordinator will follow. Clarisa Villalobos RNCare Coordinator [phone] 03-24-18 1435 Manager Meat Note: Patient discussed during interdisciplinaryrounds. Plan for OR friday. digital project coordinator will follow. Clarisa Villalobos RNCare Coordinator [phone] 03-27-18 1500 Manager Meat Note: Patient discussed during interdisciplinaryrounds. Plan for CABG friday. Clarisa Villalobos RN Manager Meat [phone] Manager Meat Note: 04/02/2018. Met with patient to discuss dischargeplanning. Patient is a 67 year old male from home s/p cardiac surgery.Patient will require home care at discharge. Patient provided a Moving RightAlong after heart Surgery booklet and a home acre providers list. Willcontinue to monitor patient for all home going needs. Mary Elder RN CC Manager Meat Note 04/07/18Met with patient to finalize discharge [...] has all scripts andbelongings. Pt [facility] via wheelchair. Mary Smith RN. Final Disposition/Discharge:Disposit ion/Discharge Information: Discharge/Transfer Information: Discharge/Transfer Date/[id number] 15:33 Discharged Accompanied Byspouse; family member Discharge Modewheelchair Transportation Methodprivate car Valuables/Medications/Belongin gs Returnedyes Belongings Commentpt has all belongings [facility] Electronic Signatures:Jeannie Shelton (RN) (Signed 19-Mar-2018 06:51)Authored: [...] Screen - Adult 03/19/2018 12:25 AM Normal [facility] EMR ADDONon 03-19-2018 ADDON CONFIRMATION REQUEST REC'D Normal [facility] Comment on above: Performed By: #### C BC ####[id number] [place] [address] ADDON CONFIRMATION REQUEST REC'D Normal [facility] Comment on above: Performed By: #### E MRAD ####NO LOCATION NEEDED ADDON CONFIRMATION REQUEST REC'D Normal [facility] Comment on above: Performed By: #### E MRAD ####NO LOCATION NEEDED GLUCOSE-POCTon 03-19-2018 Glucose mass conc 308 mg/dL High 74 - 99 [facility] Comment on above: Performed By: #### C BC ####[id number] [place] [address] Glucose mass conc 226 mg/dL High 74 - 99 [facility] Comment on above: Performed By: #### C BC ####[id number] [place] [address] Glucose mass conc 175 mg/dL High 74 - 99 [facility] Comment on above: Performed By: #### G BECKY ####[id number] [place] [address] Glucose mass conc 172 mg/dL High 74 - 99 [facility] Comment on above: Performed By: #### G BECKY ####[id number] [place] [address] HEMOGLOBIN A1Con 03-19-2018 Glucose mass conc 180 mg/dL Normal [facility] Comment on above: Performed By: #### E MRAD ####NO LOCATION NEEDED Hemoglobin A1c/Hemoglobin.to romy mass fraction (Bld) 7.9 % Normal [facility] Comment on above: Result Comment: Diag nosis of Diabetes-Adults Non-Diabetic: < or = 5.6% Increased risk for developing diabetes: 5.7-6.4% Diagnostic of diabetes: > or = 6.5%. Monitoring of Diabetes Age (y) Therapeutic Goal (%) Adults: >18 <7.0 Pediatrics: 13-18 <7.5 7-12 <8.0 0- 6 7.5-8.5 [place] [employer]. Diabetes Care 33(S1), May 2009. Performed By: #### E MRAD ####NO LOCATION NEEDED HEPARIN ASSAY,UFHon 03-19-20 18 HEPARIN ASSAY,UFH 0.4 IU/mL Normal [facility] Comment on above: Result Comment: The therapeutic reference range for UFH may be either 0.3-0.6 IU/mL or 0.3-0.7 IU/mL based on the clinical setting for anticoagulant therapy and the associated nomogram used. For heparin dosing guidelines based on clinical scenario and Heparin Assay results, please refer to local Pharmacy and the [facility] Guidelines for Anticoagulation therapy available on the [facility] intranet at:[email or web address] [email or web address] [facility]The[email or web address]/[email or web address]_Guidelines_for_Anticoagu.aspx Performed By: #### E MRAD ####NO LOCATION NEEDED HEPARIN ASSAY,UFH 0.6 IU/mL Normal [facility] Comment on above: Result Comment: The therapeutic reference range for UFH may be either 0.3-0.6 IU/mL or 0.3-0.7 IU/mL based on the clinical setting for anticoagulant therapy and the associated nomogram used. For heparin dosing guidelines based on clinical scenario and Heparin Assay results, please refer to local Pharmacy and the [facility] Guidelines for Anticoagulation therapy available on the [facility] intranet at:[email or web address]/[email or web address]_[facility]_Guidelines_for_Anticoagu.aspx Performed By: #### E MRAD ####NO LOCATION NEEDED HEPATIC FUNCTION PANELon ALP enzyme act/vol 50 U/L Normal 33 - 136 [facility] Comment on above: Performed By: #### C BC ####[id number] [place] [address] ALT enzyme act/vol 103 U/L High 10 - 52 [facility] Comment on above: Result Comment: Vivien ents treated with Sulfasalazine may generate falsely decreased results for ALT. Performed By: #### C BC ####[id number] [place] [address] AST enzyme act/vol 75 U/L High 9 - 39 [facility] Comment on above: Performed By: #### C BC ####[id number] [place] [address] Bilirubin mass conc 0.9 mg/dL Normal 0.0 - 1.2 [facility] Comment on above: Performed By: #### C BC ####[id number] [place] [address] Bilirubin.direct mass conc 0.2 mg/dL Normal 0.0 - 0.3 [facility] Comment on above: Performed By: #### C BC ####[id number] [place] [address] Protein mass conc 6.6 g/dL Normal 6.4 - 8.2 [facility] Comment on above: Performed By: #### C BC ####[id number] [place] [address] Albumin mass conc 4.1 g/dL Normal 3.4 - 5.0 [facility] Comment on above: Performed By: #### C BC ####[id number] [place] [address] Performed By: #### R ENAL ####[id number] [place] [address] History and Physical-( Night float admission note )on 03-19-2018 History and Physical-( Nightfloat admission note ) History of Present Illness:Medical Student:Medical Student: Nightfloat admission note Admission Reason: [facility] for [facility] evalHPI:CC:Transfered from CABG eval HPI:Mr. Elkins is a 67 yo M with HTN, DLD, T2DM, Addisson's, GERD, prostate ca s/pprostatectomy in 2011, hypothyroidism, psoriasis transferred to medicine at [facility] from [facility] on 03/18 for CABG eval Patient reports 2 month h/o intermittent exertional left sided chest painlasting less than 30 min, relieved with rest, with no other associatedsymptoms. He woke up 03/16 at 1AM with chest pressure associated with dyspnea,and his took him to [facility] where he was diagnosed with a PE,started on heparin gtt, then transferred to [facility]. There, hewas found to have a [...] He reports afamily history significant for Stoke, CT, CHF, HTN, DM and DLD. He quit fnehvpl11 years ago. Has an occasional beer, and denies any drug use. 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 12 points ROS obtained and negative unless otherwise stated above Prior cardiac work up. CTA at [place]:Pulmonary emboli involving the bilateral lobar segmental, and severalsubsegmental branches (RUL, RML, RLL, FIDEL, LLL). LHC/cors at [facility]:LAD prox: 30%LAD mid: 95%Diag 3rd: 99%RCA: 85 %PLV: 50%Circ: 95% TTE at [facility]:EF 60-65%Mild LA dialtionNo valvular abnormalities PMH; as [...] day (at bedtime). Objective: Objective Information: T QJQGJrV4Igclc27.26972927/9297% Date/Time03/18 23: 23: 23: 0: 23:30Range(36.6C - 36.6C ) (79 - 79 ) (20 - 20 ) (173 - 173 )/ (92 - 92 ) (97%- 97% ) Jbkshrb07 0:14: Weight in kg (Weight (kg)) 109.311/1 0:14: Weight in lbs ((lbs)) 39316/ 0:14: BMI (kg/m2) (BMI (kg/m2)) 36.646 Physical [...] Water Injectable: 25 gram(s) IntraVenous Push Every 45Lvfymnt0. Glucagon Injectable: 1 mg IntraMuscular Every 15 Minutes Recent Lab Results: Results:pending Radiology Results: Results:pending Assessment and Plan:Assessment:67 yo M with HTN, DLD, T2DM, Addisson's, GERD, prostate ca s/p prostatectomy [id number], hypothyroidism, psoriasis, and most recently diagnosed with a PE andmultivessel CAD transferred to medicine at [facility] from [facility] for CABG eval. Acute problems: #PE [...] patient (as noted in the above attestation) [id number] Provider Inpatient Certification StatementI certify this patientsneed [...] Updated: 19-Mar-2018 15:57 by Mor Calderon) Normal [facility] LIPID PANEL (CORONARY RISK 2 )on 03-19-2018 Cholesterol in HDL mass conc 44.5 mg/dL Normal [facility] Comment on above: Result Comment: . AG E VERY LOW LOW NORMAL HIGH 0-19 Y < 35 < 40 40-45 ---- 20-24 Y ---- < 40 >45 ---- >24 Y ---- < 40 40-60 >60. Performed By: #### L IPID ####[id number] [place] [address] Cholesterol in LDL mass conc 82 mg/dL Normal 0 - 99 [facility] Comment on above: Result Comment: . PARVEZ FISHER AGE DESIRABLE OPTIMAL HIGH HIGH VERY HIGH 0-19 Y 0 - 109 --- 110-129 >/= 130 ---- 20-24 Y 0 - 119 --- 120-159 >/= 160 ---- >24 Y 0 - 99 100-129 130-159 160-189 >/=190. Performed By: #### L IPID ####[id number] [place] [address] Cholesterol in VLDL mass conc 28 mg/dL Normal 0 - 40 [facility] Comment on above: Performed By: #### L IPID ####[id number] [place] [address] Cholesterol mass conc 155 mg/dL Normal 0 - 199 [facility] Comment on above: Result Comment: [...] Metamizole dosing. Performed By: #### L IPID ####[id number] [place] [address] Cholesterol.total /Cholesterol in HDL mass ratio 3.5 {ratio} Normal [facility] Comment on above: Result Comment: REF VALUESDESIRABLE < 3.4HIGH RISK > 5.0 Performed By: #### L IPID ####[id number] [place] [address] Triglyceride mass conc 141 mg/dL Normal 0 - 149 [facility] Comment on above: Result Comment: [...] Metamizole dosing. 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; medication(s)Medications Brought to HospitalyesMedication Dispositionsent home with family General Health:Weight in kg109.3 kilogram(s)Weight in [id number] pound(s)Height in feet5 feetHeight in inches8 inch(es)Height [...] ConcernsnoneAnticipated Transition Toinpatient rehabilitation facilityServices Anticipated at [facility]; rehabilitation servicesSignificant IndicatorsComplete Information Review: Allergies, Home Meds and Significant Events have been Reviewed and Verifiedwith Patient/Familyno ALLERGY, INTOLERANCE, ADVERSE EVENT: Allergies: No Known Allergies: Active Electronic Signatures:Jeannie Shelton (ANDREA) (Signed 19-Mar-2018 00:25)Authored: Profile, Additional Information Last Updated: 19-Mar-2018 00:25 by Jeannie Shelton (ANDREA) Normal [facility] RENAL FUNCTION PANELon 03-19 Albumin mass conc 3.9 g/dL Normal 3.4 - 5.0 [facility] Comment on above: Performed By: #### C BC ####[id number] [place] [address] Anion gap 3 molar conc 16 mmol/L Normal 10 - 20 [facility] Comment on above: Performed By: #### C BC ####[id number] [place] [address] Calcium mass conc 9.4 mg/dL Normal 8.6 - 10.6 [facility] Comment on above: Performed By: #### C BC ####[id number] [place] [address] Chloride molar conc 102 mmol/L Normal 98 - 107 [facility] Comment on above: Performed By: #### C BC ####[id number] [place] [address] Performed By: #### R ENAL ####[id number] [place] [address] Creatinine mass conc 1.36 mg/dL High 0.50 - 1.30 [facility] Comment on above: Performed By: #### C BC ####[id number] [place] [address] GFR- AM. 63 mL/min/1.73m2 Normal >60 [facility] Comment on above: Result Comment: CALC ULATIONS OF ESTIMATED GFR ARE PERFORMED USING THE MDRD STUDY EQUATION FOR THE IDMS-TRACEABLE CREATININE METHODS. CLIN CHEM 2007;53:766-72 Performed By: #### C BC ####[id number] [place] [address] GFR-NON AM. 52 mL/min/1.73m2 Abnormal >60 [facility] Comment on above: Performed By: #### C BC ####[id number] [place] [address] Glucose mass conc 229 mg/dL High 74 - 99 [facility] Comment on above: Performed By: #### C BC ####[id number] [place] [address] HCO3 molar conc (Bld) 23 mmol/L Normal 21 - 32 [facility] Comment on above: Performed By: #### C BC ####[id number] [place] [address] Performed By: #### R ENAL ####[id number] [place] [address] Phosphate mass conc 3.6 mg/dL Normal 2.5 - 4.9 [facility] Comment on above: Result Comment: The performance characteristics of phosphorus testing in heparinized plasma have been validated by the individual laboratory site where testing is performed. Testing on heparinized plasma is not approved by the FDA; however, such approval is not necessary. Performed By: #### C BC ####[id number] [place] [address] Potassium molar conc 3.9 mmol/L Normal 3.5 - 5.3 [facility] Comment on above: Performed By: #### C BC ####[id number] [place] [address] Sodium molar conc 137 mmol/L Normal 136 - 145 [facility] Comment on above: Performed By: #### C BC ####[id number] [place] [address] Urea nitrogen mass conc 25 mg/dL High 6 - 23 [facility] Comment on above: Performed By: #### C BC ####[id number] [place] [address] Anion gap 3 molar conc 17 mmol/L Normal 10 - 20 [facility] Comment on above: Performed By: #### R ENAL ####[id number] [place] [address] Calcium mass conc 9.2 mg/dL Normal 8.6 - 10.6 [facility] Comment on above: Performed By: #### R ENAL ####[id number] [place] [address] Creatinine mass conc 1.42 mg/dL High 0.50 - 1.30 [facility] Comment on above: Performed By: #### R ENAL ####[id number] [place] [address] GFR- AM. 61 mL/min/1.73m2 Normal >60 [facility] Comment on above: Result Comment: CALC ULATIONS OF ESTIMATED GFR ARE PERFORMED USING THE MDRD STUDY EQUATION FOR THE IDMS-TRACEABLE CREATININE METHODS. CLIN CHEM 2007;53:766-72 Performed By: #### R ENAL ####[id number] [place] [address] GFR-NON AM. 50 mL/min/1.73m2 Abnormal >60 [facility] Comment on above: Performed By: #### R ENAL ####[id number] [place] [address] Glucose mass conc 206 mg/dL High 74 - 99 [facility] Comment on above: Performed By: #### R ENAL ####[id number] [place] [address] Phosphate mass conc 3.5 mg/dL Normal 2.5 - 4.9 [facility] Comment on above: Result Comment: The performance characteristics of phosphorus testing in heparinized plasma have been validated by the individual laboratory site where testing is performed. Testing on heparinized plasma is not approved by the FDA; however, such approval is not necessary. Performed By: #### R ENAL ####[id number] [place] [address] Potassium molar conc 4.1 mmol/L Normal 3.5 - 5.3 [facility] Comment on above: Performed By: #### R ENAL ####[id number] [place] [address] Sodium molar conc 138 mmol/L Normal 136 - 145 [facility] Comment on above: Performed By: #### R ENAL ####[id number] [place] [address] Urea nitrogen mass conc 23 mg/dL Normal 6 - 23 [facility] Comment on above: Performed By: #### R ENAL ####[id number] [place] [address] REQUEST-LEUKOREDUCED RED HERI LSon 03-19-2018 REQUEST-LEUKOREDU TATUM RED CELLS ORDER RECD Normal [facility] Comment on above: Performed By: #### E MRAD ####NO LOCATION NEEDED STAPH/MRSA SCREENon 03-19-20 18 STAPH/MRSA SCREEN PATIENT: DON ELKINS LOCATION: TT [id number]#: [id number] : 50 AGE: SEX: M ORDERED BY: FESTUS ARECHIGA: ANTERIOR NARES COLLECTED: 03/19/18 09:34ANTIBIOTICS AT JIMENA.: RECEIVED : 03/19/18 11:09SITE: NARES R E S U L T S STAPH/MRSA SCREEN FINAL 03/20/18 12:15 NO Staphylococcus aureus ISOLATED. Normal [facility] Comment on above: Performed By: #### C OAGS ####[id number] [place] [address] TH CHEST 1 VIEWon 03-19-2018 TH CHEST 1 VIEW Name: DON ELKINS STUDY:TH CHEST 1 VIEW; 03/19/2018 6:21 am INDICATION:Signs/Symptoms: admisison Xray. COMPARISON:None ORDERING CLINICIAN:JIM TITUS FINDINGS:The cardiomediastinal silhouette is within normal limits. There is no focal consolidation, edema or pneumothorax. No sizeablepleural effusion. No acute osseous abnormality. IMPRESSION:1. No radiographic evidence of acute cardiopulmonary process. Electronically signed by: STANISLAV RADFORD MD Normal [facility] TH CHEST 2 VIEW PA AND LATon 03-19-2018 TH CHEST 2 VIEW PA AND LAT Name: DON ELKINS STUDY:CHEST 2 VIEW PA AND LAT; 03/19/2018 12:56 pm INDICATION:Signs/Symptoms: preop cabg ROOM [id number]. COMPARISON:Chest radiograph from 03/19/2018 ORDERING CLINICIAN:KYLE ARECHIGA FINDINGS:The cardiomediastinal silhouette is stable and within normal limits. There is no focal consolidation, edema or pneumothorax. No sizeablepleural effusion. No acute osseous abnormality. IMPRESSION:1. No radiographic evidence of acute cardiopulmonary process. Electronically signed by: STANISLAV RADFORD MD Normal [facility] TSHon 03-19-2018 Thyrotropin Qn 2.51 m[IU]/L Normal 0.44 - 3.98 [facility] Comment on above: Result Comment: TSH testing is performed using different testing methodology at [facility] than at other [facility]. Direct result comparisons should only be made within the same method.. Patients receiving more than 5 mg/day of biotin may have interference in test results. A sample should be taken no sooner than eight hours after previous dose. Contact [phone] for additional information. Performed By: #### T SH2 ####[id number] [place] [address] URINALYSISon 03-19-2018 APPEARANCE CLEAR Normal CLEAR [facility] Comment on above: Performed By: #### U A ####[id number] [place] [address] BILIRUBIN Negative Normal NEGATIVE [facility] Comment on above: Performed By: #### U A ####[id number] [place] [address] BLOOD Negative Normal NEGATIVE [facility] Comment on above: Performed By: #### U A ####[id number] [place] [address] COLOR YELLOW Normal STRAW,YELLOW [facility] Comment on above: Performed By: #### U A ####[id number] [place] [address] GLUCOSE Negative Normal NEGATIVE [facility] Comment on above: Performed By: #### U A ####[id number] [place] [address] KETONES Negative Normal NEGATIVE [facility] Comment on above: Performed By: #### U A ####[id number] [place] [address] LEUKOCYTE ESTERASE Negative Normal NEGATIVE [facility] Comment on above: Performed By: #### U A ####[id number] [place] [address] NITRITE Negative Normal NEGATIVE [facility] Comment on above: Performed By: #### U A ####[id number] [place] [address] pH 6.0 Normal 5.0 - 8.0 [facility] Comment on above: Performed By: #### U A ####[id number] [place] [address] Protein mass conc Negative Normal NEGATIVE [facility] Comment on above: Performed By: #### U A ####[id number] [place] [address] SPECIFIC GRAVITY 1.013 Normal 1.005 - 1.035 [facility] Comment on above: Performed By: #### U A ####[id number] [place] [address] UROBILINOGEN 2.0 mg/dL High 0.0 - 1.9 [facility] Comment on above: Result Comment: SOME PIGMENTS AND MEDICATIONS MAY CAUSE AFALSE POSITIVE UROBILINOGEN Performed By: #### U A ####[id number] [place] [address] URINE CULTURE,BACTERIALon URINE CULTURE,BACTERIAL PATIENT: DON ELKINS LOCATION: [address]#: [id number] : 50 AGE: SEX: M ORDERED BY: FESTUS ARECHIGA: URINE COLLECTED: 03/19/18 10:09ANTIBIOTICS AT JIMENA.: RECEIVED : 03/19/18 13:55SITE: Clean Catch/Voided R E S U L T S URINE CULTURE,BACTERIAL FINAL 03/20/18 08:55 NO SIGNIFICANT GROWTH. Normal [facility] Comment on above: Performed By: #### C BC ####[id number] [place] [address] Vital Signs Date Time Vital Sign Value Performing Clinician Facility 03-16-2024 09:[id number] Body height 172.72 cm [facility] 03-16-2024 09:42-0400 Body mass index (BMI) [Ratio] 35.9 kg/m2 [facility] 03-16-2024 09:42-0400 Body weight 107.04 kg [facility] 03-16-2024 09:42-0400 Diastolic blood pressure 74 mm[Hg] [facility] 03-16-2024 09:42-0400 Heart rate 76 /min [facility] 03-16-2024 09:42-0400 Systolic blood pressure 146 mm[Hg] [facility] 01-29-2024 15:050400 Body height 172.72 cm [facility] 01-29-2024 15:05-0400 Body mass index (BMI) [Ratio] 35.6 kg/m2 [facility] 01-29-2024 15:05-0400 Body temperature 97.2 [degF] [facility] 01-29-2024 15:05-0400 Body weight 106.25 kg [facility] 01-29-2024 15:05-0400 Diastolic blood pressure 78 mm[Hg] [facility] 01-29-2024 15:05-0400 Heart rate 69 /min [facility] 01-29-2024 15:05-0400 Respiratory rate 16 /min [facility] 01-29-2024 15:05-0400 SaO2% (BldA) [Mass fraction] 96 % [facility] 01-29-2024 15:05-0400 Systolic blood pressure 134 mm[Hg] [facility] 08-14-2023 12:06-0400 Body height 172.72 cm [facility] 08-14-2023 12:06-0400 Body mass index (BMI) [Ratio] 35.2 kg/m2 [facility] 08-14-2023 12:06-0400 Body temperature 96.9 [degF] [facility] 08-14-2023 12:06-0400 Body weight 105.23 kg [facility] 08-14-2023 12:06-0400 Diastolic blood pressure 80 mm[Hg] [facility] 08-14-2023 12:06-0400 Heart rate 76 /min [facility] 08-14-2023 12:06-0400 Respiratory rate 16 /min [facility] 08-14-2023 12:06-0400 SaO2% (BldA) [Mass fraction] 97 % [facility] 08-14-2023 12:06-0400 Systolic blood pressure 130 mm[Hg] [facility] 06-24-2023 10:02-0500 Body height 167.6 cm Oscar Arvizu MD Work Phone: [facility] 06-24-2023 10:02-0500 Body mass index (BMI) [Ratio] 36.32 kg/m2 Oscar Arvizu MD Work Phone: [facility] 06-24-2023 10:02-0500 Body weight 102.06 kg Oscar Arvizu MD Work Phone: [facility] 06-24-2023 10:02-0500 Diastolic blood pressure 72 mm[Hg] Oscar Arvizu MD Work Phone: [facility] 06-24-2023 10:02-0500 Heart rate 77 /min Oscar Arvizu MD Work Phone: [facility] 06-24-2023 10:02-0500 Systolic blood pressure 131 mm[Hg] Oscar Arvizu MD Work Phone: [facility] 01-16-2023 15:00-0400 Body height 172.72 cm Frederick Geovanni Other [employer] Other 01-16-2023 15:00-0400 Body mass index (BMI) [Ratio] 33.96 kg/m2 Frederick Geovanni Other [employer] Other 01-16-2023 15:00-0400 Body temperature 97.3 [degF] Frederick Geovanni Other [employer] Other 01-16-2023 15:00-0400 Body weight 101.33 kg Frederick Geovanni Other [employer] Other 01-16-2023 15:00-0400 Diastolic blood pressure 64 mm[Hg] Frederick Geovanni Other [employer] Other 01-16-2023 15:00-0400 Respiratory rate 18 /min Frederick Geovanni Other [employer] Other 01-16-2023 15:00-0400 SaO2% (BldA) [Mass fraction] 97 % Frederick Geovanni Other [employer] Other 01-16-2023 15:00-0400 Systolic blood pressure 130 mm[Hg] Frederick Geovanni Other [employer] Other 06-20-2022 16:00-0500 Body height 172.72 cm Frederick Geovanni Other [employer] Other 06-20-2022 16:00-0500 Body mass index (BMI) [Ratio] 33.9 kg/m2 Frederick Geovanni Other [employer] Other 06-20-2022 16:00-0500 Body temperature 97 [degF] Frederick Geovanni Other [employer] Other 06-20-2022 16:00-0500 Body weight 101.15 kg Frederick Geovanni Other [employer] Other 06-20-2022 16:00-0500 Diastolic blood pressure 80 mm[Hg] Frederick Geovanni Other [employer] Other 06-20-2022 16:00-0500 Respiratory rate 18 /min Frederick Geovanni Other [employer] Other 06-20-2022 16:00-0500 SaO2% (BldA) [Mass fraction] 91 % Frederick Geovanni Other [employer] Other 06-20-2022 16:00-0500 Systolic blood pressure 132 mm[Hg] Frederick Geovanni Other [employer] Other 11-22-2021 16:40-0400 Body height 172.72 cm Frederick Geovanni Other [employer] Other 11-22-2021 16:40-0400 Body mass index (BMI) [Ratio] 34.18 kg/m2 Frederick Geovanni Other [employer] Other 11-22-2021 16:40-0400 Body temperature 96.7 [degF] Frederick Geovanni Other [employer] Other 11-22-2021 16:40-0400 Body weight 101.97 kg Frederick Geovanni Other [employer] Other 11-22-2021 16:40-0400 Diastolic blood pressure 76 mm[Hg] Frederick Geovanni Other [employer] Other 11-22-2021 16:40-0400 Respiratory rate 18 /min Frederick Geovanni Other [employer] Other 11-22-2021 16:40-0400 SaO2% (BldA) [Mass fraction] 97 % Frederick Geovanni Other [employer] Other 11-22-2021 16:40-0400 Systolic blood pressure 110 mm[Hg] Frederick Geovanni Other [employer] Other 05-31-2021 16:00-0500 Body height 172.72 cm Frederick Geovanni Other [employer] Other 05-31-2021 16:00-0500 Body mass index (BMI) [Ratio] 35.35 kg/m2 Frederick Geovanni Other [employer] Other 05-31-2021 16:00-0500 Body temperature 96.9 [degF] Frederick Geovanni Other [employer] Other 05-31-2021 16:00-0500 Body weight 105.46 kg Frederick Geovanni Other [employer] Other 05-31-2021 16:00-0500 Diastolic blood pressure 70 mm[Hg] Frederick Geovanni Other [employer] Other 05-31-2021 16:00-0500 Respiratory rate 18 /min Frederick Geovanni Other [employer] Other 05-31-2021 16:00-0500 SaO2% (BldA) [Mass fraction] 97 % Frederick Geovanni Other [employer] Other 05-31-2021 16:00-0500 Systolic blood pressure 110 mm[Hg] Frederick Geovanni Other [employer] Other 04-13-2019 06:55-0500 Body Temperature 98.01 [degF] [facility] [place] 04-13-2019 06:55-0500 BP Diastolic 89 mm[Hg] [facility] [place] 04-13-2019 06:55-0500 BP Systolic 164 mm[Hg] [facility] , [place] 04-13-2019 06:55-0500 Pulse (Heart Rate) 82 /min [facility] [place] 04-13-2019 06:55-0500 Pulse Oximetry 96 % [facility] [place] 04-13-2019 06:55-0500 Respiratory Rate 17 /min [facility], [place] 04-13-2019 05:57-0500 BMI (Body Mass Index) 39.2 kg/m2 [facility], [place] 04-13-2019 05:57-0500 Body weight 113.54 kg [facility] , [place] 04-09-2019 16:35-0500 Height 170.2 cm Ellie [facility] , [place] 04-09-2019 05:19-0500 BMI (Body Mass Index) 39.19 kg/m2 [facility], [place] 04-09-2019 05:19-0500 Body [facility] [place] 04-09-2019 03:30-0500 BP Diastolic 44 mm[Hg] [facility] , [place] 04-09-2019 03:30-0500 BP Systolic 126 mm[Hg] [facility] , [place] 04-09-2019 03:30-0500 Pulse (Heart Rate) 92 /min [facility], [place] 04-09-2019 03:30-0500 Pulse Oximetry 98 % [facility] , [place] 04-09-2019 00:52-0500 Body Temperature 98.2 [degF] [facility] [place] 04-09-2019 00:52-0500 Respiratory Rate 18 /min [facility], [place] 04-07-2019 18:15-0500 Height 170.2 cm [facility] , [place] 04-05-2019 14:57-0500 BP Diastolic 52 mm[Hg] [facility] , [place] 04-05-2019 14:57-0500 BP Systolic 94 mm[Hg] [facility] , [place] 04-05-2019 14:57-0500 Pulse (Heart Rate) 90 /min [facility], [place] 04-05-2019 14:57-0500 Pulse Oximetry 94 % [facility] , [place] 04-05-2019 14:57-0500 Respiratory Rate 16 /min [facility], [place] 04-05-2019 14:06-0500 Body Temperature 98.2 [degF] [facility], [place] 04-05-2019 08:44-0500 BMI (Body Mass Index) 46.66 kg/m2 [facility], [place] 04-05-2019 08:44-0500 Body weight 112.95 kg [facility] , [place] 04-05-2019 08:44-0500 Height 155.6 cm [facility] , [place] 03-30-2019 12:44-0500 BMI (Body Mass Index) 46.66 kg/m2 [address], [place] 03-30-2019 12:44-0500 Body Temperature 96.91 [degF] [address], [place] 03-30-2019 12:44-0500 Body weight 112.[address] , [place] 03-30-2019 12:44-0500 BP Diastolic 75 mm[Hg] [address] , [place] 03-30-2019 12:44-0500 BP Systolic 152 mm[Hg] [address] , [place] 03-30-2019 12:44-0500 Height 155.[address] , [place] 03-30-2019 12:44-0500 Pulse (Heart Rate) 77 /min [address], [place] 03-30-2019 12:44-0500 Pulse Oximetry 98 % [address] 03-30-2019 12:44-0500 Respiratory Rate 16 /min [address], [place] 04-02-2018 04:55-0500 Body temperature 37.0 degrees C [facility] Comment on above: Result Comment: NOTE: PATIENT RESULTS AR E NOT CORRECTED FOR TEMPERATURE. Performed By: #### E MRAD ####NO LOCATION NEEDED 04-01-2018 19:29-0500 Body temperature 37.0 degrees C [facility] Comment on above: Result Comment: NOTE: PATIENT RESULTS AR E NOT CORRECTED FOR TEMPERATURE. Performed By: #### E MRAD ####NO LOCATION NEEDED 04-01-2018 14:43-0500 Body temperature 37.0 degrees C [facility] Comment on above: Result Comment: NOTE: PATIENT RESULTS AR E NOT CORRECTED FOR TEMPERATURE. Performed By: #### E MRAD ####NO LOCATION NEEDED 04-01-2018 11:59-0500 Body temperature 37.0 degrees C [facility] Comment on above: Result Comment: NOTE: PATIENT RESULTS AR E NOT CORRECTED FOR TEMPERATURE. Performed By: #### E MRAD ####NO LOCATION NEEDED 04-01-2018 06:26-0500 Body temperature 37.0 degrees C [facility] Comment on above: Result Comment: NOTE: PATIENT RESULTS AR E NOT CORRECTED FOR TEMPERATURE. Performed By: #### E MRAD ####NO LOCATION NEEDED 04-01-2018 05:32-0500 Body temperature 37.0 degrees C [facility] Comment on above: Result Comment: NOTE: PATIENT RESULTS AR E NOT CORRECTED FOR TEMPERATURE. Performed By: #### E MRAD ####NO LOCATION NEEDED 04-01-2018 04:04-0500 Body temperature 37.0 degrees C [facility] Comment on above: Result Comment: NOTE: PATIENT RESULTS AR E NOT CORRECTED FOR TEMPERATURE. Performed By: #### E MRAD ####NO LOCATION NEEDED 04-01-2018 00:50-0500 Body temperature 37.0 degrees C [facility] Comment on above: Result Comment: NOTE: PATIENT RESULTS AR E NOT CORRECTED FOR TEMPERATURE. Performed By: #### E MRAD ####NO LOCATION NEEDED 03-31-2018 23:29-0500 Body temperature 37.0 degrees C [facility] Comment on above: Result Comment: NOTE: PATIENT RESULTS AR E NOT CORRECTED FOR TEMPERATURE. Performed By: #### E MRAD ####NO LOCATION NEEDED 03-31-2018 20:21-0500 Body temperature 37.0 degrees C [facility] Comment on above: Result Comment: NOTE: PATIENT RESULTS AR E NOT CORRECTED FOR TEMPERATURE. Performed By: #### E MRAD ####NO LOCATION NEEDED 03-31-2018 19:08-0500 Body temperature 37.0 degrees C [facility] Comment on above: Result Comment: NOTE: PATIENT RESULTS AR E NOT CORRECTED FOR TEMPERATURE. Performed By: #### E MRAD ####NO LOCATION NEEDED 03-31-2018 17:37-0500 Body temperature 37.0 degrees C [facility] Comment on above: Result Comment: NOTE: PATIENT RESULTS AR E NOT CORRECTED FOR TEMPERATURE. Performed By: #### E MRAD ####NO LOCATION NEEDED 03-31-2018 17:18-0500 Body temperature 37.0 degrees [facility] Comment on above: Result Comment: NOTE: PATIENT RESULTS AR E NOT CORRECTED FOR TEMPERATURE. Performed By: #### E MRAD ####NO LOCATION NEEDED 03-31-2018 17:01-0500 Body temperature 37.0 degrees C [facility] Comment on above: Result Comment: NOTE: PATIENT RESULTS AR E NOT CORRECTED FOR TEMPERATURE. Performed By: #### E MRAD ####NO LOCATION NEEDED 03-31-2018 15:30-0500 Body temperature 37.0 degrees C [facility] Comment on above: Result Comment: NOTE: PATIENT RESULTS AR E NOT CORRECTED FOR TEMPERATURE. Performed By: #### E MRAD ####NO LOCATION NEEDED 03-31-2018 14:29-0500 Body temperature 37.0 degrees C [facility] Comment on above: Result Comment: NOTE: PATIENT RESULTS AR E NOT CORRECTED FOR TEMPERATURE. Performed By: #### A FPA3 ####[id number] [place] [address] 03-31-2018 13:56-0500 Body temperature 37.0 degrees C [facility] Comment on above: Result Comment: NOTE: PATIENT RESULTS AR E NOT CORRECTED FOR TEMPERATURE. Performed By: #### A FPA3 ####[id number] [place] [address] 03-31-2018 13:11-0500 Body temperature 37.0 degrees C [facility] Comment on above: Result Comment: NOTE: PATIENT RESULTS AR E NOT CORRECTED FOR TEMPERATURE. Performed By: #### A FPA3 ####[id number] [place] [address] 03-31-2018 12:53-0500 Body temperature 37.0 degrees C [facility] Comment on above: Result Comment: NOTE: PATIENT RESULTS AR E NOT CORRECTED FOR TEMPERATURE. Performed By: #### A FPA3 ####[id number] [place] [address] 03-31-2018 12:24-0500 Body temperature 37.0 degrees C [facility] Comment on above: Result Comment: NOTE: PATIENT RESULTS AR E NOT CORRECTED FOR TEMPERATURE. Performed By: #### A FPA3 ####[id number] [place] [address] 03-31-2018 11:57-0500 Body temperature 37.0 degrees C [facility] Comment on above: Result Comment: NOTE: PATIENT RESULTS AR E NOT CORRECTED FOR TEMPERATURE. Performed By: #### A FPA3 ####[id number] [place] [address] 03-31-2018 11:45-0500 Body temperature 37.0 degrees C [facility] Comment on above: Result Comment: NOTE: PATIENT RESULTS AR E NOT CORRECTED FOR TEMPERATURE. Performed By: #### A FPA3 ####[id number] [place] [address] 03-31-2018 09:53-0500 Body temperature 37.0 degrees C [facility] Comment on above: Result Comment: NOTE: PATIENT RESULTS AR E NOT CORRECTED FOR TEMPERATURE. Performed By: #### A FPA3 ####[id number] [place] [address] 03-19-2018 16:32-0400 Body temperature 37.0 degrees C [facility] Comment on above: Result Comment: NOTE: PATIENT RESULTS AR E NOT CORRECTED FOR TEMPERATURE. Performed By: #### E MRAD ####NO LOCATION NEEDED Encounters Encounter Date Encounter Type Care Provider Facility Start: 03-16-2024 End: 03-16-2024 ambulatory [facility] Work Phone: Start: 03-16-2024 End: 03-16-2024 Patient encounter procedure [facility] Physician [facility] Work Phone: Start: 01-29-2024 End: 01-29-2024 ambulatory [facility] Work Phone: Start: 01-29-2024 End: 01-29-2024 Patient encounter procedure [facility] Work Phone: Start: 01-22-2024 Non-patient / Non-visit [facility] Physician [facility] Work Phone: Start: 01-06-2024 End: 01-06-2024 ambulatory [facility] Start: 01-06-2024 End: 01-06-2024 Encounter for other preprocedural examination [facility] Start: 12-23-2023 End: 12-23-2023 ambulatory OSCAR ARVIZU Not Available Start: 10-24-2023 End: 10-24-2023 ambulatory OLGA VOGEL Not Available Start: 08-14-2023 End: 08-14-2023 ambulatory [facility] Work Phone: Start: 08-14-2023 End: 08-14-2023 Patient encounter procedure [facility] Work Phone: Start: 08-05-2023 Non-patient / Non-visit [facility] Work Phone: Start: 06-24-2023 Chart abstracting Oscar Shrestha Work Phone: [facility] 111 Start: 06-24-2023 End: 06-24-2023 Office [...] Not Available Start: 05-26-2023 End: 05-26-2023 ambulatory [facility] Start: 03-11-2023 End: 03-11-2023 ambulatory Sal Sabillon Other [facility] Other Start: 03-11-2023 Nursing evaluation o f patient and report Sal Sabillon [facility] Start: 01-16-2023 End: 01-16-2023 ambulatory Frederick Geovanni Other [facility] Other Start: 01-16-2023 Office outpatient vi sit 25 minutes Frederick Geovanni [facility] Start: 06-20-2022 End: 06-20-2022 ambulatory Frederick Geovanni Other [facility] Other Start: 06-20-2022 Office outpatient vi sit 25 minutes Frederick Geovanni [facility] Start: 06-13-2022 End: 06-14-[address] SAL SABILLON Facility:[facility] Start: 06-07-2022 End: 06-08-[address] SAL SABILLON Facility:[facility] Start: 05-24-2022 End: 05-25-[address] SAL SABILLON Facility:[facility] Start: 01-12-[address] SAL SABILLON Facil ity:[facility]1 Start: 11-22-2021 End: 11-22-2021 ambulatory Frederick Geovanni Other [facility] Other Start: 11-22-2021 Office outpatient vi sit 15 minutes Frederick Geovanni [facility] Start: 11-17-2021 End: 11-18-2021 ambulatory FREDERICK GEOVANNI Facility:[facility] Start: 06-03-2021 End: 06-03-2021 ambulatory Frederick Geovanni Other [facility] [employer] Other Start: 06-03-2021 Telephone encounter Frederick Geovanni [facility] Start: 05-31-2021 End: 05-31-2021 ambulatory Frederick Geovanni Other [facility] [employer] Other Start: 05-31-2021 Office outpatient vi sit 25 minutes Frederick Geovanni [facility] Start: 02-08-2021 End: 02-09-2021 ambulatory MARJ DEMARCO Facility:[facility] Start: 04-09-2019 End: 04-13-2019 Evaluation and management of inpatient ELLIE JUÁREZ [facility] Start: 04-09-2019 End: 04-13-2019 Evaluation and management of inpatient Ellie Juárez Work Phone: [facility] Start: 04-07-2019 End: 04-09-2019 Evaluation and management of inpatient SAL SABILLON [facility] Start: 04-07-2019 End: 04-09-2019 Evaluation and management of inpatient Gilbert Martinez Work Phone: [facility] Comment on above: SIRS (systemic infla mmatory response syndrome) (HCC) (Primary Dx); Dehydration; TIFFANI (acute kidney injury) (HCC); Bronchitis; Elevated TSH Start: 04-05-2019 End: 04-05-2019 Patient encounter procedure [facility] Start: 04-05-2019 End: 04-07-2019 Patient encounter procedure [facility] Start: 04-05-2019 End: 04-05-2019 Subsequent hospital visit by physician Reid Mejia Work Phone: [facility] Comment on above: Post-op pain (Primar y Dx) Start: 03-30-2019 End: 04-04-2019 Patient encounter procedure RE[facility] Start: 03-30-2019 End: 04-03-2019 Subsequent hospital visit by physician Wandy Brown Rm [facility] Comment on above: Spinal stenosis of l umbar region with radiculopathy; Lumbar spondylosis; Bunn's disease (HCC); Cancer (HCC); Restless leg syndrome; Former smoker, stopped smoking in distant past; Tremors of nervous system; Thyroid disease; Psoriasis Start: 04-30-2018 Patient encounter procedure Jc Gaston Facility:[id number] Start: 03-19-2018 End: 04-07-2018 Evaluation and management of inpatient [facility] Facility:[facility] Procedures Date Procedure Procedure Detail Performing Clinician [...] d ev cleared fda spec home use REDI SALLIE Start: 04-12-2019 Gluc bld gluc mntr [...] Unknown Provider Result Start: 04-12-2019 Prothrombin time [facility] Work Phone: Start: 04-12-2019 INTAKE AND OUTPUT [...] Unknown Provider Result Start: 04-11-2019 Prothrombin time [employer] Work Phone: Start: 04-11-2019 INTAKE AND OUTPUT [...] home use Unknown Provider Result Start: 04-10-2019 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 REID Y OO Start: [...] REID SALLIE Start: 04-09-2019 Assay of lactate Shainka Pentito Work Phone: Start: 04-09-2019 BASIC METABOLIC [...] ev cleared fda spec home use REID ASLLIE Start: 04-08-2019 Blood count complete auto&auto difrntl wbc REID SALLIE Start: 04-08-2019 Comprehensive metabo lic panel REID SALLIE Start: 04-08-2019 Hepatic function panel REID SALLIE Start: 04-08-2019 Assay of lactate REID SALLIE Start: 04-08-2019 Prothrombin time REID SALLIE Start: 04-08-2019 TELEMETRY MONITORING REID SALLIE Start: 04-08-2019 BASIC METABOLIC PANE L W/ REFLEX TO MG FOR LOW K [employer] Work Phone: Start: 04-08-2019 Blood count complete auto&auto difrntl wbc Shanika Tu [employer] Work Phone: Start: 04-08-2019 Hepatic function panel [employer] Work Phone: Start: 04-08-2019 LACTATE, SEPSIS Shanika [employer] Work Phone: Start: 04-08-2019 Prothrombin time Shanika Tu [employer] Work Phone: Start: 04-08-2019 Assay of lactate REID SALLIE Start: 04-08-2019 Gluc bld gluc mntr d ev cleared fda spec home use REID SALLIE Start: 04-08-2019 PLACE INTERMITTENT P NEUMATIC COMPRESSION DEVICE REID SALLIE Start: 04-08-2019 REASON FOR NO CHEMIC AL VTE PROPHYLAXIS REID SALLIE Start: 04-08-2019 DAILY WEIGHTS REID SALLIE Start: 04-08-2019 FULL CODE REID SALLIE Start: 04-08-2019 INCENTIVE SPIROMETRY NURSING REID SALLIE Start: 04-08-2019 INITIATE OXYGEN THER [...] above: Performed By: #### T S3C #### [facility] [address] [place] [address] Start: 04-07-2019 Ecg routine ecg w/le [...] Start: 04-07-2019 Creatine kinase total K neno Santmaaria Work Phone: Start: 04-07-2019 Culture bacterial quanttative [...] on above: Performed By: #### T +S ####[id number] [place] [address] Start: 03-23-2018 Insertion of Intralu devon Device into Inferior Vena Cava, Percutaneous Approach Kenneth Alegriaer Start: 03-22-2018 Antibody screen Kenneth merlos Comment on above: Performed By: #### L IPID ####[id number] [place] [address] Start: 03-19-2018 Echocardiography Kenneth Cheng Plan of Treatment Date Care Activity Detail Author Start: 12-23-2023 End: 12-23-2023 Patient encounter procedure 12/23/2023 10:30 AM EDT Office Visit [facility] [address] [place] [address] Oscar Arvizu MD [address] [facility] [address] [place] [address] [facility] Start: 06-24-2023 End: 06-24-2024 US.doppler Carotid arteries - bilateral Vascular US carotid artery duplex bilateral Imaging Routine Carotid stenosis, bilateral Stroke, lacunar (CMS/HCC) Cerebral artery occlusion with cerebral infarction (CMS/HCC) Expected: 06/24/2023 (Approximate), Expires: 06/24/2024 [facility] Work Phone: Comment on above: Expected: 06/24/2023 (Approximate), Expi res: 06/24/2024 Start: 01-17-2023 Influenza vaccination Influenza Vaccine (#1) [facility] Start: 06-25-2022 Pneumococcal Vaccine: 65+ Years (2 - PCV) Pneumococcal Vaccine: 65+ Years (2 - PCV) [facility] Start: 05-01-2020 DTaP/Tdap/Td vaccine (3 - Td) DTaP/Tdap/Td vaccine (3 - Td) [place] Start: 04-09-2020 Creatinine monitoring Creatinine monitoring [place] Start: 04-09-2020 Potassium monitoring Potassium monitoring [place] Start: 04-08-2020 Creatinine monitoring Creatinine monitoring [place] Start: 04-08-2020 Potassium monitoring Potassium [place] Start: 03-30-2020 Creatinine monitoring Creatinine monitoring [place] Start: 03-30-2020 Potassium monitoring Potassium monitoring [place] Start: 06-30-2019 A1C test (Diabetic or Prediabetic) A1C test (Diabetic or Prediabetic) [place] Start: 04-23-2019 End: 04-23-2019 Office Visit 04/23/2019 Office Visit Neurosurgery Reid Mejia MD [address] [facility], [address] [place] [id number] [employer] Start: 04-05-2019 End: 04-05-2019 Hospital Encounter [facility] Comment on above: L 3, L 4 LUMBAR DECOMPRESSION, 1 HOUR/ 1 C-ARM Start: 01-17-2019 Influenza vaccination Flu vaccine (#1) [place] Start: 11-08-2018 Annual Wellness Visit (AWV) Annual Wellness Visit (AWV) [place] Start: 08-27-2015 Pneumococcal 65+ years Vaccine (1 of 1 - PPSV23) Pneumococcal 65+ years Vaccine (1 of 1 - PPSV23) [place] Start: 08-27-2015 Pneumococcal 65+ years Vaccine (2 of 2 - PPSV23) Pneumococcal 65+ years Vaccine (2 of 2 - PPSV23) [place] Start: 2000 Colon cancer screen colonoscopy Colon cancer screen colonoscopy [place] Start: 2000 Shingles Vaccine (1 of 2) Shingles Vaccine (1 of 2) [place], [place] Start: 1968 Diabetic microalbuminuria test Diabetic microalbuminuria test [place] Start: 1960 [object Object] Diabetic foot exam [place] Start: 1960 Diabetic retinal exam Diabetic retinal exam [place], [place] Start: 1960 Lipid screen Lipid screen [place] Start: 1950 AAA screen AAA screen [place] Start: 1950 Hepatitis C screen Hepatitis C screen [place] Start: 1950 Screening for malignant neoplasm of colon [facility] Basic Metabolic Pane l w/ Reflex to MG Basic Metabolic Panel w/ Reflex to MG Lab Routine Daily until discontinued starting 04/08/2019, 2 completed [place] Comment on above: Daily until discontinued starting 2018, 2 completed CBC auto differential CBC auto d ifferential Lab Routine Daily until discontinued starting 04/08/2019, 2 completed [place] Comment on above: Daily until discontinued starting 2018, 2 completed Culture Blood #1 Culture Blood # 1 Microbiology STAT 04/07/2019 7:04 PM EST [facility] Culture Blood #2 Culture Blood # 2 Microbiology STAT 04/07/2019 6:56 PM EST [facility] EKG 12 Lead [facility] Bowen Comment on above: Daily until discontinued starting 2018, 2 completed Incentive spirometry RT post-op Incentive spirometry RT post-op Respiratory Care Routine Every 2hr while awake until discontinued starting 04/08/2019 [facility] Comment on above: Every 2hr while awake until discontinued starting 04/08/2019 Initiate Oxygen Ther apy Protocol [facility] Comment on above: Daily until discontinued starting 2018 Daily until disconti nued starting 04/10/2019 Daily until disconti nued starting 04/08/2019 Lactic acid, plasma Lactic acid, plasma Lab Routine Every 6hr until discontinued starting 04/08/2019, 5 completed [facility] Comment on above: Every 6hr until discontinued starting , 5 completed Phase I & II - meter ed glucose [facility] Comment on above: As Needed until discontinued starting 4X Daily (AC & HS) u ntil discontinued starting 04/09/2019 As Needed until disc ontinued starting 04/09/2019 4X Daily (AC & HS) u ntil discontinued starting 04/08/2019 As Needed until disc ontinued starting 04/08/2019 End: 04-05-2019 POCT Glucose POCT Glucose Point of Care Testing STAT One Time for 1 Occurrences starting 04/05/2019 until 04/05/2019 [facility] Comment on above: One Time for 1 Occurrences starting 03/19 until 04/05/2019 End: 04-11-2019 Procalcitonin Procalcitonin Lab Routine Q48H for 2 Occurrences starting 04/09/2019 until 04/11/2019, 1 completed [facility] Comment on above: Q48H for 2 Occurrences starting 04/09/20 19 until 04/11/2019, 1 completed [facility] Comment on above: Daily until discontinued starting 2018, 4 completed Daily until disconti nued starting 04/10/2019 End: 04-05-2019 Pulse Oximetry Spot Check Pulse Oximetry Spot Check Respiratory Care Routine One Time for 1 Occurrences starting 04/05/2019 until 04/05/2019 [place] Comment on above: One Time for 1 Occurrences starting 03/19 until 04/05/2019 Renal function 2000 panel - Serum or Plasma [facility] Renal function 2000 panel - Serum or Plasma [facility] Respiratory Culture Respiratory Culture Microbiology Routine 04/08/2019 5:06 AM EST [facility] Immunizations Immunization Date Immunization Notes Care Provider Fa [facility] 03-11-2023 influenza, high dose seasonal, preservative-free Sal Sabillon Other [facility] Other 03-11-2023 influenza virus vaccine, unspecified formulation [facility] 07-01-2022 influenza virus vaccine, unspecified formulation Oscar Arvizu MD Work Phone: [facility] 08-05-2020 COVID-19 mRNA, Comirnaty (Pfizer) [facility] 07-22-2020 COVID-19 mRNA, Comirnaty (Pfizer) [facility] Payers Date Payer Category Payer Unknown [employer] [id number] 2023-Present [address] [place] [address] [id number] 2023 Medicare [id number] 2022 Private Health Insurance [employer] [id number] 2022-Present [address] [address] [place] [address] Supplement [id number] 2017 Medicare [id number] 2017 Medicare xxxxxxxxxx [id number] 2015 Medicare MEDICARE MEDICAR E PART B [id number] 2015-[place] [address] [place] [address] Medicare [id number] 1959 Medicare [id number] 1959 Private Health Insurance [facility] [id number] 1959 Self-pay 1950 Unknown [id number] .356 1950 Unknown [id number] [id number] .1046 1950 Unknown [id number] 2.16.840.1.746259.3.579.2 .182 1950 Unknown [id number] 2.16.840.1.423389.3.579.2 .182 1950 Unknown [id number] 2.16.840.1.789511.3.579.2 .182 1950 Unknown [id number] 2.16.840.1.155776.3.579.2 .182 1950 Unknown [id number] 2.16.840.1.423783.3.579.2 .182 1950 Unknown [id number] 2.16.840.1.875363.3.579.2 .647 1950 Unknown [id number] 2.16.840.1.808773.3.579.2 .593 1950 Unknown [id number] 2.16.840.1.699875.3.579.2 .593 1950 Unknown [id number] 2.16.840.1.210337.3.579.2 .593 1950 Unknown [id number] 2.16.840.1.710803.3.579.2 .593 1950 Unknown [id number] 2.16.840.1.405950.3.579.2 .593 1950 Unknown [id number] 2.16.840.1.586966.3.579.2 .1259 1950 Unknown [id number] 2.16.840.1.822193.3.579.2 .1259 1950 Unknown [id number] [id number] .1259 Private Health Insurance [facility] [id number] Social History Date Type Detail Facility Start: 04-05-2019 End: 08-14-2023 Tobacco smoking status [facility] Former smoker [facility] End: 03-30-1991 History of tobacco use Current smoker [place] End: 03-30-1991 History of tobacco use Cigarette Smoker [place] Start: 04-05-2019 End: 10-11-2022 Cigarettes smoked current (pack per day) - Reported [place] History of tobacco use Chews Tobacco [place] Start: 04-05-2019 End: 10-11-2022 Alcohol intake Current drinker of alcohol (finding) [place] Start: 03-30-2019 Alcohol Comment [place] Start: 1950 Sex Assigned At Not on file [place] Start: 04-09-2019 History SDOH Social Connections Phone 5 [place] Start: 04-09-2019 History SDOH Social Connections Get Together 3 [place] Start: 04-09-2019 History SDOH Social Connections Shinto 2 [place] Start: 04-09-2019 History SDMD Social Connections Meetings 1 [place] Start: 04-09-2019 History SDOH Physica l Activity DPW 0 [facility] Start: 10-11-2022 Sex Assigned At N [employer] Other Start: 09-27-2022 Tobacco use and exposure Smokeless tobacco non-user [facility] Start: 09-27-2022 Tobacco Comment >10 years sin e last smoked [facility] Start: 09-27-2022 Alcohol Comment caffeine: coffee [facility] Start: 1950 Sex Assigned At Male F [facility] Clinical Notes 11-24-2020 to 01-06-2024 Oscar Arvizu MD - 06/24/2023 10:23 AM Keegan Arvizu MD - 06/24/2023 10:22 AM Keegan Arvizu MD - 06/24/2023 10:22 AM Keegan Arvizu MD - 06/24/2023 10:21 AM ESTOscar Arvizu MD - 06/24/2023 10:21 AM EST Note Date & Type Note Facility 01-06-2024 Note Cardiovascular Medic [facility] SUBJECTIVE Chief Complaint Patient [...] gait and mobility Acute kidney failure (CMS/HCC) 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 [facility] 01-06-2024 Note Pt is here for denta l clearance for tooth extraction. Pt has htn, hyperlipidemia. Since last visit pt had labs with lipids, carotid. Review of Systems All other systems reviewed and are negative. [facility] 06-24-2023 History of Present illness Narrative Associated [...] Disease Assessment and Plan - Parkinson disease ([facility]) Stop med for now ad experimentum. If [...] white matter lesion load US carotids (03/2020, [place]) - ~40% carotid bulbs CT head (03/2019, [place] ) - nl Testing Labs - protein [...] Failed Semeiology Circadian Noct oxim PSG PAPT ([place]) - AHI=2.2 @ MSLT MWT Imaging Testing [...] SH - Past Medical History: Diagnosis Date Bunn's disease (CMS/HCC) Diabetes (CMS/HCC) GERD (gastroesophageal reflux disease) History of hepatitis B Hyperlipidemia (CMS/HCC) Hypertension (CMS/HCC) Prostate cancer (CMS/HCC) Sleep apnea Thyroid disease (CMS/HCC) Past Surgical History: Procedure Laterality Date APPENDECTOMY CARPAL TUNNEL RELEASE Bilateral CATARACT EXTRACTION 2004 CHOLECYSTECTOMY 2014 COLONOSCOPY 2009 NOSE SURGERY x 2 PLANTAR FASCIA SURGERY ME MEDICATION MANAGEMENT Disease:Bunn's Disease ME RELEASE THENAR MUSCLE Right 06/13/2014 thumb trigger release RADICAL PROSTATECTOMY [facility] 2009 Disease:Prostate cancer TRIGGER FINGER RELEASE No [...] as of 06/24/2023. documented in this encounter [facility] 05-26-2023 Note Lipid abnormalities are well controlled, continue lipitor [facility] 05-26-2023 Note Hypertension is stab le in light of florinef for orthostasis that is currently well controlled and pt without c/o symptoms. Continue all meds [facility] 05-26-2023 Note Coronary artery dise ase is Stable Continue GDMT- Asa, lipitor, metoprolol continue risk factor modifications- heart healthy diet, regular exercise as tolerated and continue all medications. [facility] 05-26-2023 Note Patient here for 1 y ear follow up CAD, NSVT, and orthostatic hypotension. Had echo shortly after last apt in May 2022. Routine labs were done in Dec 2022. Denies chest pain, SOB, and lightheadedness. Review of Systems All other systems reviewed and are negative. [facility] 05-26-2023 Note UTP CARDIOLOGY PROGR ESS NOTE [...] RV size a (more content not included)... [facility] 05-26-2023 Note Monitor with routine echocardiog [email or web address] [facility] 01-16-2023 Evaluation note Encounter Date Diagnosis Assessment [...] etiology. I have prescribed him oral magnesium. [facility] 02-02-2023 Evaluation note* Encounter Date Diagnosis [...] to take oral Magnesium every other day. [facility] 07-07-2022 Evaluation note* Encounter Date Diagnosis [...] advised him to contact his PCP or missile tracking technician. Nov, Laz hernandez w cr kid I-IV (ICD-10 - I12.9) Blood pressure is controlled and he appears to be euvolemic. Continue current medication Nov, Secondary hyperparathyroidism (ICD-10 - N25.81) MBD parameters including calcium, phosphorus, vitamin D and PTH are within the goal [facility] Other 01-13-2022 Evaluation note* Encounter Date Diagnosis [...] advised him to contact his PCP or missile tracking technician. May, Laz hy kid w cr kid I-IV (ICD-10 - I12.9) Blood pressure is controlled and he appears to be euvolemic. Continue current medication May, Secondary hyperparathyroidism (ICD-10 - N25.81) MBD parameters including calcium, phosphorus, vitamin D and PTH are within the goal May, Anemia of renal dise ase (ICD-10 - D63.1) Hemoglobin is within goal. We will check iron studies. [facility] Other [id number] NoteHNO ID: [id number] Author: Claudio Parker MD Service: ? Author [...] TUNNEL Bilateral - COLONOSCOP W/ OR W/O [facility] SPEC Colonoscopy - CORONARY ARTERY BYPASS GRAFT [...] CHF - Diabetes Sis (more content not included)...[facility] 11-24-2020 NoteHNO ID: [id number] Author: Claudio Parker MD Service: ? Author Type: Physician Type: Progress Notes Filed: 11/24/2020 2:10 PM Note Text: PATIENT NAME: Don Elkins DATE: 11/24/2020 PRIMARY CARE PHYSICIAN: Dr. Sal Sabillon/Marj Demarco CNP OTHER PHYSICIANS: Dr. Wilson, Dr. Cortez, Dr. Arvizu ([facility] Neurology) HPI: This is a 70 year [...] TUNNEL Bilateral - COLONOSCOP W/ OR W/O [facility] SPEC Colonos (more content not included)...[facility] OffSite VISION Other Evaluation note* Diagnosis Parkinson's disease without [...] with cerebral infarction [facility] Diagnosis Onset Date Resolution Status Brigida disease acute CKD (chronic kidney disease) stage 3, GFR 30-59 ml/min acute [id number] acute Hypomagnesemia acute Secondary hyperparathyroidism acute Type 2 diabetes mellitus wit h diabetic chronic kidney disease acute [facility] Work Phone: Evaluation note* Diagnosis Onset Date Resolution Status Brigida disease acute CKD (chronic kidney disease) stage 3, GFR 30-59 ml/min acute [id number] acute Hypomagnesemia acute Secondary hyperparathyroidism acute Type 2 diabetes mellitus wit h diabetic chronic kidney disease acute Screening PSA (prostate specific antigen) acute [facility] Work Phone: History general Narrative - Reported* [...] Hospitalization History see above Hospitalization History pneumonia [facility] Other Summary Purpose Family History Relationship Condition [...] Documents on File Type Date Recorded Patient Senior Net Developer Expl anation Advance Directives and Living Will Power of Stereotyper Documents on File Type Date Recorded Patient Senior Net Developer Expl anation Advance Directives and Living Will Power of Stereotyper Latest Code Status on File Code Status [...] your physician 11) Call your doctor at [phone] for an appointment (or follow up as [...] call OFFICE. 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 Cancer (HCC) C80.1 Restless [...] Independent Dressing Independent Toileting Independent Feeding Independent Scrap Burner Independent Med Delivery whole Wound Care Documentation [...] (for information only, NOT a DME order): {EQUIPMENT:[id number]} Other Treatments: Patient's personal belongings (please select all that are sent with patient): glasses,cellphone, ore mixer, pants,shrit, slippers, jacket RN SIGNATURE: MANAGEMENT/SOCIAL WORK SECTION Inpatient Status Date: Readmission Risk Assessment Score: Readmission Risk Risk of Unplanned Readmission: 23 Discharging to Facility/ Agency Name: [facility] Address: Phone: Fax: Dialysis Facility (if applicable) Name: Address: Dialysis Schedule: Phone: Fax: Big Machine Consultant/Program Coordinator signature: ICIAN SECTION Prognosis: Good Condition at [...] Marcelina Camacho - 04/13/2019 11:34 AM EST [facility] Acute Rehabilitation MUSIC THERAPY Date: 04/13/2019 [...] Date: 04/13/2019 Patient Name: Don Elkins Account: [id number] : 1950 (68 y.o.) Room: [place] [address] Diagnosis: Impaired mobility and ADL's d/t severe lumbar spinal stenosis Past Medical History: Diagnosis Date Acute non-ST elevation myocardial infarction (NSTEMI) ([facility]) Acute post-hemorrhagic anemia Acute respiratory insufficiency following thoracic surgery Bronchiectasis (HCC) CAD (coronary artery disease) 03/2018 Triple bypass Calculus of urinary tract Cancer ([facility]) prostatectomy Chronic back pain CKD (chronic kidney disease) COPD (chronic obstructive pulmonary disease) (HCC) Diabetes mellitus (HCC) dx 2016 Diverticulosis of large intestine DVT (deep venous thrombosis) ([facility]) GERD (gastroesophageal reflux disease) Hx of blood [...] Assistance: Independent(No AD) Transfer Assistance: Independent Active Roll Weigher: Yes 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, 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 Leisure & Hobbies: build and make things, golf, looking up in [place] Additional Comments: Per FLEXOGRAPHIC PRESS HELPER: Pt reports that his is responsible for [...] of Acute non-ST elevation myocardial infarction (NSTEMI) ([facility]), Acute post-hemorrhagic anemia, Acute respiratory insufficiency, Bronchiectasis (HCC), CAD (coronary artery disease), Calculus of urinary tract, Cancer (HCC), Chronic back pain, CKD (chronic kidney disease), COPD (chronic obstructive pulmonary disease) ([facility]), Diabetes mellitus (HCC), Diverticulosis of large intestine, DVT (deep venous thrombosis) ([facility]), GERD (gastroesophageal reflux disease), Hx of blood clots, Hyperlipidemia, Hypertension, Lumbar stenosis with neurogenic claudication, Primary adrenocortical insufficiency (HCC), Pulmonary embolism ([facility]), Pulmonary embolism without acute cor pulmonale ([facility]), Restless leg syndrome, RLS (restless legs syndrome), [...] Transfers: Modified independence Cognition Overall Cognitive Status: [facility] Cognition Comment: 7 7 7 6 Pt. [...] Kerr RN - 04/13/2019 8:[address] [facility] INPATIENT REHABILITATION INDEPENDENT IN ROOM NOTE [facility] Date: 04/09/2019 Date: 04/13/2019 Patient Name: [...] Ellie Juárez DO * RosaLulu Maria Luisa, [facility] - 04/13/2019 8:33 AM EST Clinical Pharmacy [...] - 04/12/2019 2:54 PM STEFFI Hoyt [facility] Language Pathology Discharge Report Patient: [...] pt's POC as deemed necesary by treating FLEXOGRAPHIC PRESS HELPER. Long-term Goals Timeframe for Long-term Goals: 3-5x/week [...] is no longer warranted Signature: Jaspreet Frost CCC-FLEXOGRAPHIC PRESS HELPER, Date: 04/12/2019, Time: 2:54 PM Sheila Howe, TOILET ATTENDANT - 04/12/2019 1:01 PM EST [facility] - Acute Rehabilitation RECREATIONAL THERAPY Initial [...] and time management with 75% accuracy. When FLEXOGRAPHIC PRESS HELPER requested pt double check his work, he [...] pt's POC as deemed necesary by treating FLEXOGRAPHIC PRESS HELPER. Pt was able to read at the paragraph level with 100% accuracy. No difficulty writing sentences or functional check writing tasks. Pt did say that his Dyslexia causes him to be slower with writing tasks. 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 Pt was able to complete a personal [...] of Acute non-ST elevation myocardial infarction (NSTEMI) ([facility]), Acute post-hemorrhagic anemia, Acute respiratory insufficiency, Bronchiectasis ([facility]), CAD (coronary artery disease), Calculus of urinary tract, Cancer ([facility]), Chronic back pain, CKD (chronic kidney disease), COPD (chronic obstructive pulmonary disease) ([facility]), Diabetes mellitus (HCC), Diverticulosis of large intestine, DVT (deep venous thrombosis) ([facility]), GERD (gastroesophageal reflux disease), Hx of blood clots, Hyperlipidemia, Hypertension, Lumbar stenosis with neurogenic claudication, Primary adrenocortical insufficiency ([facility]), Pulmonary embolism ([facility]), Pulmonary embolism without acute cor pulmonale (HCC), [...] require any assistance. Patient used reachers to pickling drum operator one inch cubes from the floor. Patient [...] [facility] Room: [place] [address] NAME: Don Elkins : 1950 (68 y.o.) [...] 04/12/19 at 9:54 AM * Lulu Lee, [facility] - 04/12/2019 8:20 AM EST Clinical Pharmacy [...] device (slide rail) Walk: 6 - Modified [place] Walks at least 150 feet with an [...] the care of Dr. Reid Mejia at [facility] 04/05/2019. Patient is to transition slowly back [...] incentive spirometry Ellie Juárez D.O., PM&R Attending [phone] [facility] * Kirsten Dailey RN - 04/12/2019 5:59 AM EST Pt denied any pain. LBM 04/11/19. OT at was 234, 2 units of Humalog given along with 20 units ofLantus. Pt slept well with CPAP. Will continue to monitor. * Cristiano Agosto, [facility] - 04/11/2019 12:36 PM EST Clinical Pharmacy [...] range. Cristiano Agosto PharmD 04/11/2019 12:35 PM * Alyx Collins PTA - 04/11/2019 12:11 [...] of Acute non-ST elevation myocardial infarction (NSTEMI) ([facility]), Acute post-hemorrhagic anemia, Acute respiratory insufficiency, Bronchiectasis ([facility]), CAD (coronary artery disease), Calculus of urinary tract, Cancer ([facility]), Chronic back pain, CKD (chronic kidney disease), COPD (chronic obstructive pulmonary disease) ([facility]), Diabetes mellitus ([facility]), Diverticulosis of large intestine, DVT (deep venous thrombosis) ([facility]), GERD (gastroesophageal reflux disease), Hx of blood clots, Hyperlipidemia, Hypertension, Lumbar stenosis with neurogenic claudication, Primary adrenocortical insufficiency ([facility]), Pulmonary embolism ([facility]), Pulmonary embolism without acute cor pulmonale (HCC), [...] instruction well. Pt also instructed in double fruit and vegetable classer lateral negotiation technique to utilize when back [...] the care of Dr. Reid Mejia at [facility] 04/05/2019. Patient is to transition slowly back [...] incentive spirometry Ellie Juárez D.O., PM&R Attending [phone] [facility] * Jaspreet Pleitez, OT - 04/11/2019 9:07 [...] of Acute non-ST elevation myocardial infarction (NSTEMI) ([facility]), Acute post-hemorrhagic anemia, Acute respiratory insufficiency, Bronchiectasis ([facility]), CAD (coronary artery disease), Calculus of urinary tract, Cancer ([facility]), Chronic back pain, CKD (chronic kidney disease), COPD (chronic obstructive pulmonary disease) ([facility]), Diabetes mellitus (HCC), Diverticulosis of large intestine, DVT (deep venous thrombosis) ([facility]), GERD (gastroesophageal reflux disease), Hx of blood clots, Hyperlipidemia, Hypertension, Lumbar stenosis with neurogenic claudication, Primary adrenocortical insufficiency (HCC), Pulmonary embolism (HCC), Pulmonary embolism without acute cor pulmonale ([facility]), Restless leg syndrome, RLS (restless legs syndrome), [...] [facility] NAME: Don Elkins : 1950 (68 y.o.) [...] instruction well. Pt also instructed in double fruit and vegetable classer lateral negotiation technique to utilize when back [...] 2: Pt to complete TUG in 13.5m/s rat exterminator goals [facility] goal 1: Pt to complete all bed mobility with indep rat exterminator goal 2: Pt to complete transfers with indep [facility] goal 3: pt to ambulate >150 ft with no AD independently rat exterminator goal 4: pt to navigate 12 steps with 1 HR mod indep Therapy Time: Individual Time In 1300 Time Out 1330 Minutes 30 Timed Code Treatment Minutes: 30 Minutes(gait 20min; therex 10min) Sera Escalera, PT, 04/10/19 at 2:46 PM * Rox Vergara YUDI - 04/10/2019 2:23 PM EST [...] of Acute non-ST elevation myocardial infarction (NSTEMI) ([facility]), Acute post-hemorrhagic anemia, Acute respiratory insufficiency, Bronchiectasis ([facility]), CAD (coronary artery disease), Calculus of urinary tract, Cancer ([facility]), Chronic back pain, CKD (chronic kidney disease), COPD (chronic obstructive pulmonary disease) ([facility]), Diabetes mellitus ([facility]), Diverticulosis of large intestine, DVT (deep venous thrombosis) ([facility]), GERD (gastroesophageal reflux disease), Hx of blood clots, Hyperlipidemia, Hypertension, Lumbar stenosis with neurogenic claudication, Primary adrenocortical insufficiency ([facility]), Pulmonary embolism ([facility]), Pulmonary embolism without acute cor pulmonale ([facility]), Restless leg syndrome, RLS (restless legs syndrome), [...] Devlin SLP - 04/10/2019 12:47 PM EST [facility] Speech Language Pathology Initial Speech/Language/Cognitive Assessment NAME:Don Elkins : 1950 (68 y.o.) ROOM: [place] [address] ADMISSION DATE: 04/09/2019 PATIENT DIAGNOSIS(ES): Impaired gait and mobility [R26.89] No chief complaint on file. Patient Active Problem List Diagnosis Date Noted Iron deficiency anemia 04/09/2019 Meralgia paresthetica 04/09/2019 Obstructive sleep apnea syndrome 04/09/2019 Abnormality of gait and mobility due to Impaired Mobility and ADL's due to Severe Lumbar Spinal Stenosis. [facility] admit 04/09/19. 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 Cancer ([facility]) 03/30/2019 Restless leg syndrome 03/30/2019 Former smoker, [...] Date Acute non-ST elevation myocardial infarction (NSTEMI) ([facility]) Acute post-hemorrhagic anemia Acute respiratory insufficiency following thoracic surgery Bronchiectasis (HCC) CAD (coronary artery disease) 03/2018 Triple bypass Calculus of urinary tract Cancer ([facility]) prostatectomy Chronic back pain CKD (chronic kidney [...] of Evaluation: 04/10/2019 Evaluating Therapist: Wendy Devlin FLEXOGRAPHIC PRESS HELPER Assessment: Cognitive Diagnosis: Pt presents with moderate cognitive-linguistic deficits characterized by high-level word finding, paragraph comprehension, short-term memory, verbal reasoning, and problem solving deficits Recommendations: Requires FLEXOGRAPHIC PRESS HELPER Intervention: Yes Duration/Frequency of Treatment: 3-5x/week of [...] pt's POC as deemed necesary by treating FLEXOGRAPHIC PRESS HELPER. 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 Leisure & Hobbies: wood working. Additional [...] assist Memory: 3- Moderate assist Therapy Time FLEXOGRAPHIC PRESS HELPER Individual Minutes Time In: 1020 Time Out: 1052 Minutes: 32 Signature: * Seth Moeller, OTR/L - 04/10/2019 12:39 PM EST The patient completed the [facility] Mental Status (UMS) Examination on this [...] REHAB Rehabilitation Initial Assessment: Physical Therapy [facility] NAME: Don Elkins : 1950 Date of Service: 04/10/2019 Rehab Diagnosis(es): Impaired Mobility and ADLs d/t severe lumbar spinal stenosis Patient Active Problem List Diagnosis Date Noted Iron deficiency anemia 04/09/2019 Meralgia paresthetica 04/09/2019 Obstructive sleep apnea syndrome 04/09/2019 Abnormality of gait and mobility due to Impaired Mobility and ADL's due to Severe Lumbar Spinal Stenosis. [facility] admit 04/09/19. 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 Pt also instructed in double fruit and vegetable classer lateral negotiation technique to utilize when back [...] 2: Pt to complete TUG in 13.5m/s [facility] goals rat exterminator goal 1: Pt to complete all bed mobility with indep [facility] goal 2: Pt to complete transfers with indep rat exterminator goal 3: pt to ambulate >150 ft with no AD independently rat exterminator goal 4: pt to navigate 12 steps [...] Recommended toilet hygeine wand, sock aid and putty worker. Transfer care to lead OTR Assessment Performance [...] of Acute non-ST elevation myocardial infarction (NSTEMI) ([facility]), Acute post-hemorrhagic anemia, Acute respiratory insufficiency, Bronchiectasis ([facility]), CAD (coronary artery disease), Calculus of urinary tract, Cancer ([facility]), Chronic back pain, CKD (chronic kidney disease), COPD (chronic obstructive pulmonary disease) ([facility]), Diabetes mellitus ([facility]), Diverticulosis of large intestine, DVT (deep venous thrombosis) ([facility]), GERD (gastroesophageal reflux disease), Hx of blood clots, Hyperlipidemia, Hypertension, Lumbar stenosis with neurogenic claudication, Primary adrenocortical insufficiency ([facility]), Pulmonary embolism ([facility]), Pulmonary embolism without acute cor pulmonale ([facility]), Restless leg syndrome, RLS (restless legs syndrome), [...] Assistance: Independent(No AD) Transfer Assistance: Independent Active Roll Weigher: Yes 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 AD[facility] DATE: 04/09/2019 PATIENT DIAGNOSIS(ES): Impaired gait and mobility [R26.89] No chief complaint on file. Patient Active Problem List Diagnosis Date Noted Iron deficiency anemia 04/09/2019 Meralgia paresthetica 04/09/2019 Obstructive sleep apnea syndrome 04/09/2019 Abnormality of gait and mobility due to Impaired Mobility and ADL's due to Severe Lumbar Spinal Stenosis. [facility] admit 04/09/19. 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 Cancer ([facility]) 03/30/2019 Restless leg syndrome 03/30/2019 Former smoker, [...] Date Acute non-ST elevation myocardial infarction (NSTEMI) ([facility]) Acute post-hemorrhagic anemia Acute respiratory insufficiency following thoracic surgery Bronchiectasis ([facility]) CAD (coronary artery disease) 03/2018 Triple bypass Calculus of urinary tract Cancer ([facility]) prostatectomy Chronic back pain CKD (chronic kidney disease) COPD (chronic obstructive pulmonary disease) (HCC) Diabetes mellitus ([facility]) dx 2016 Diverticulosis of large intestine DVT (deep venous thrombosis) ([facility]) GERD (gastroesophageal reflux disease) Hx of blood clots 02/2018 PE Hyperlipidemia meds > 20 yrs Hypertension meds > 20 yrs Lumbar stenosis with neurogenic claudication Primary adrenocortical insufficiency (HCC) Pulmonary embolism ([facility]) 06/23/2018 2018 / has been on Coumadin [...] Within functional limits/Modified independence Treatment Plan Requires FLEXOGRAPHIC PRESS HELPER Intervention: No Duration/Frequency of Treatment: no f/u [...] got pain pills this morning. 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 Cancer ([facility]) 03/30/2019 Restless leg syndrome 03/30/2019 Former smoker, stopped smoking in distant past 03/30/2019 Tremors of nervous system 03/30/2019 Thyroid disease 03/30/2019 HTN (hypertension) 03/30/2019 Hyperlipidemia 03/30/2019 Acid reflux 03/30/2019 Psoriasis 03/30/2019 Depression 03/30/2019 Diverticulosis large intestine w/o perforation or abscess w/o bleeding 01/07/2019 Pulmonary embolism ([facility]) 06/23/2018 Coronary arteriosclerosis 05/25/2018 Acute kidney failure ([facility]) 04/07/2018 Major depressive disorder, single episode, unspecified 04/07/2018 Past Medical History: Diagnosis Date Acute non-ST elevation myocardial infarction (NSTEMI) ([facility]) Acute post-hemorrhagic anemia Acute respiratory insufficiency following thoracic surgery Bronchiectasis (HCC) CAD (coronary artery disease) 03/2018 Triple bypass Calculus of urinary tract Cancer ([facility]) prostatectomy Chronic back pain CKD (chronic kidney disease) COPD (chronic obstructive pulmonary disease) (HCC) Diabetes mellitus (HCC) dx 2016 Diverticulosis of large intestine DVT (deep venous thrombosis) ([facility]) GERD (gastroesophageal reflux disease) Hx of blood clots 02/2018 PE Hyperlipidemia meds > 20 yrs Hypertension meds > 20 yrs Lumbar stenosis with neurogenic claudication Primary adrenocortical insufficiency (HCC) Pulmonary embolism ([facility]) 06/23/2018 2018 / has been on Coumadin [...] Assistance: Independent(No AD) Transfer Assistance: Independent Active Roll Weigher: Yes Occupation: Retired Additional Comments: Spouse is also limited by pain in her back; pt. at times has to help lift her.Has filter machine operator occasionally. Spouse uses adaptive mobility equipment OBJECTIVE: [...] Goals: Patient goals : to get better [facility] goals [facility] goal 1: indep with bed mobility utilizing log roll [facility] goal 2: pt to be indep with transfers [facility] goal 3: pt to ambulate >150 ft with no AD independently rat exterminator goal 4: pt to navigate 12 steps with 1 HR mod indep [facility] (6 CLICK) BASIC MOBILITY AM-PAC Inpatient Mobility Raw Score : 17 Therapy Time: Individual Time In 0941 Time Out 0955 Minutes 14 Cinthya Alcazar, PT, 04/09/19 at 10:42 AM * Ny Arana, OTR/L - 04/09/2019 10:15 AM EST KAE SANDERSONJUSTEN OCCUPATIONAL THERAPY EVALUATION - ACUTE NAME: Don Elkins : 1950 (68 y.o.) CODE STATUS: Full Code Room: [facility]/W276-01 Date of Service: 04/09/2019 Patient Diagnosis(es): Sepsis [...] region with radiculopathy 03/30/2019 Lumbar spondylosis 03/30/2019 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 at times has to help lift her.Has filter machine operator occasionally. Spouse uses adaptive mobility equipment OBJECTIVE: [...] from home with spouse who presents to [facility] with the above deficits which impact [...] How much help for eating meals?: None AM-[facility] Inpatient Daily Activity Raw Score: 21 AM-[facility] Inpatient ADL T-Scale Score : 44.27 ADL [...] Monitor today and adjust tomorrow as needed #Bunn disease - Continue steroids #History of PE [...] [E11.65, Z79.4] 04/08/2019 Sepsis (HCC) [A41.9] 04/07/2019 Bunn's disease (HCC) [E27.1] 03/30/2019 Additional work up [...] Full Code PT/OT Eval * Rene Nobles, [facility] - 04/08/2019 4:25 AM EST Pharmacy Note [...] intestine w/o perforation or abscess w/o bleeding Bunn's disease (HCC) Cancer (HCC) Restless leg syndrome [...] 200 ml. Perfect serve sent to [facility] to request nausea meds. Zofran cannot be given until 0700 0459 medicated pt for fever and nausea. Sent respiratory cx to lab. documented in this encounter* Vicki Singletary APRN - CNP - 03/30/2019 1:00 PM EST + Hibiclens wash neck to toes, front & back on Friday04/03/2019 & Friday04/04/2019. + Last dose Coumadin 03/30/2019 / per Dr. Arcos, court administrator thru [facility]. + Lovenox bridge to start 03/31/2019 as ordered thru [facility] ( [facility] ) phone # [phone]. + Military Technology Specialist is Dr. Austen Arcos / phone # [phone] / [facility] / Last appt 11/2018/ paper copy of appt notes on chart. + Hx of brigida disease / missile tracking technician Dr. Xavier Lake / [place] / phone # [phone]. / paper copy of last appt notes dated 01/06/2019 on chart. documented in this encounter Assessments Diagnosis Post-op pain- Primary Other acute postoperative pain Diagnosis Abnormality of gait and mobility due to Impaired Mobility and ADL's due to Severe Lumbar Spinal Stenosis. [facility] admit 04/09/19.- Primary Abnormality of [...] hypertension Diagnosis SIRS (systemic inflammatory response syndrome) ([facility])- Primary Systemic inflammatory response syndrome, unspecified Dehydration TIFFANI (acute kidney injury) (HCC) Acute kidney failure, unspecified Bronchitis Bronchitis, not specified as acute or chronic Elevated TSH Other abnormal blood chemistry Sepsis ([facility]) CKD (chronic kidney disease) Chronic kidney disease, [...] ADL's due to Severe Lumbar Spinal Stenosis. [facility] admit 04/09/19. Abnormality of gait CAD (coronary artery disease) Coronary atherosclerosis of unspecified type of vessel, sycuan or graft HTN (hypertension) Unspecified essential hypertension [...] claudication Lumbar spondylosis Lumbosacral spondylosis without myelopathy Bunn's disease (HCC) Glucocorticoid deficiency Cancer (HCC) Other [...] overuseor abuse and follow-up frequently with his roof cement and paint maker helper. ROS x10: The patient also complains of [...] - Patient independently transfers Walk: 7- Complete [place] Walks at least 150 feet Independently with no assistive device Distance Walked: 300' Stairs: 6 - Modified [place] Safely goes up and down at least [...] tocontinue to discuss discharge plans with case sealer. Complex Physical Medicine & Rehab Issues Assess & Plan: 1. Severe abnormality of gait and mobility and impaired self-care and ADL's secondary to progressive severe spinal canal stenosis. Functional and medical status have improved nicely status [facility] therefore patient is scheduled for discharge today [...] therapy, Lidoderm, K-pad prn. I reviewed her [place] prescription monitoring service data sheetsin hopes of [...] the care of Dr. Reid Mejia at [facility] 04/05/2019. Patient is to transition slowly back [...] incentive spirometry Ellie Juárez D.O., PM&R Attending [phone] [facility] documented in this encounter* Gerardo Fitzpatrick MD - 04/09/2019 12:01 PM EST Hospital Medicine Discharge Summary Don Elkins : 1950 Admit date: 04/07/2019 Discharge date: 04/09/2019 Admitting Physician: Gerardo Fitzpatrick MD Primary Care Physician: Sal Sabillon MD Discharge Diagnoses: Active Problems: Lumbar spondylosis Bunn's disease (HCC) Sepsis (HCC) CKD (chronic kidney [...] male that was admitted and treated at [facility] for the following medical issues: Active Problems: Lumbar spondylosis Bunn's disease (HCC) Sepsis (HCC) CKD (chronic kidney [...] by the following consultants while admitted to [facility]: Consults: IP CONSULT TO NEUROSURGERY IP CONSULT [...] Discharge Medications: Don Elkins Home Medication Instructions MARILUZ:[id number] Printed on:04/09/19 1201 Medication Information cephALEXin (KEFLEX) [...] tablet Take 1 tablet by mouth daily [place]-3 Fatty Acids (FISH OIL) 600 MG CAPS [...] Take 5 mg by mouth daily Indications: D-HH-Rgl-Sun warfarin (COUMADIN) 7.5 MG tablet Take 7.5 mg by mouth daily Indications: M-W-F Disposition: If discharged to Home, Any [facility] needs that were indicated and/or required as [...] MD [address] [place] [address] [facility] [address] [place] [address] Referral ID Status Reason Start Date Expiration Date Visits Requested Visits Authorized [id number] Authorized Perform Procedure 06/24/2023 12/21/2023 1 1 Chief Complaint and Reason for Visit Chief Complaint RENAL 6 month follow up Reason for Visit Bunn disease CKD (chronic kidney disease) stage 3, GFR 30-59 ml/min [id number] Hypomagnesemia Secondary 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 Chief Complaint RENAL 6 MONTH F/U Reason for Visit Brigida disease CKD (chronic kidney disease) stage 3, GFR 30-59 ml/min [id number] Hypomagnesemia Secondary 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 Chief Complaint RENAL 6 MONTH F/U Wellness Reason for Visit Bunn disease CKD (chronic kidney disease) stage 3, GFR 30-59 ml/min [id number] Hypomagnesemia Secondary hyperparathyroidism Type 2 diabetes mellitus [...] section and content) DATE CREATED AUTHOR 04/25/2018 [facility] DATE CREATED AUTHOR AUTHOR'S ORGANIZ ATION 05/02/2018 [employer] DATE CREATED AUTHOR AUTHOR'S ORGANIZ ATION 2018 [facility] DATE CREATED AUTHOR AUTHOR'S ORGANIZ ATION 04/13/2019 [facility] DATE CREATED AUTHOR AUTHOR'S ORGANIZ ATION 02/13/2021 [facility] DATE CREATED AUTHOR AUTHOR'S ORGANIZ ATION 05/05/2021 [facility] DATE CREATED AUTHOR AUTHOR'S ORGANIZ ATION 05/21/2021 [facility] DATE CREATED AUTHOR AUTHOR'S ORGANIZ ATION 07/10/2021 [facility] DATE CREATED AUTHOR AUTHOR'S ORGANIZ ATION 06/17/2022 [facility] DATE CREATED AUTHOR AUTHOR'S ORGANIZ ATION 12/25/2023 [facility] DATE CREATED AUTHOR AUTHOR'S ORGANIZ ATION 01/07/2024 [facility] Reason for Visit (unrecogniz ed section and content) Status Reason Specialty Diagnoses / Procedures Referre d By Contact Referred To Contact Diagnoses SPINAL STENOSIS,, RADICULOPATHY, SPONDYLOSIS Procedures ME LAMNOTMY W/DCMPRSN NRV EACH ADDL CRVCL/LMBR L 3, L 4 LUMBAR DECOMPRESSION, 1 HOUR/ 1 C-ARM Reid Mejia MD [address], [address] [place] [address] [facility] Reason Comments Post-op Problem Had surgery friday o n low back. Pt has intermittent fever, vomiting and redness around the incision Status Reason Specialty Diagnoses / Procedures Referred By Contact Referred To Contact Diagnoses Sepsis (H[place]) [place] [address] [place] [address] [facility] Reason Comments Parkinson's Disease Care Teams (unrecognized sec tion and content) Medical Office Scheduler Relationship Specialty Start Date End Date Sal Sabillon MD [address] [place] [id number] PCP - General Family Medicine 10/08/22 Medical Office Scheduler Relationship Specialty Start Date End Date Sal Sabillon MD [address] [place] [phone] PCP - General Family Medicine 10/08/22 Team [...] BE BASED ON THE PRIMARY CLINICAL RECORDS. [email or web address] provides no warranty or guarantee of the accuracy or completeness of information in this document.
== END 2024-04-05 20:56 | disposition home or self-care (01) ==
LOC: SLEEP 20:55
PROVIDERS: PCP Family Medicine; Visit Provider Family Medicine
DX: G47.33 Obstructive sleep apnea (adult) (pediatric) (principal); G25.81 Restless legs syndrome
CPT/HCPCS: 95811

== ENCOUNTER 2024-05-13 10:35 | Observation (INO) | payer OTHER, SELFPAY ==
[2024-05-13] VITALS (14 sets, daily range): BP systolic 91–166; BP diastolic 57–85; PULSE 91–124; TEMP 36.6–37.6; O2SAT 91–100; BMI 35.5; BMI 37.3
--- OUTSIDE RECORDS SUMMARY | 2024-05-13 10:50 | XMS_ITS | CCD ---
Author Organization [facility] Care Team Providers Care Automotive Title Clerk Name Role Phone Kenneth Cheng Unavailable Unavailable KirnusLevi Unavailable Unavailable UNKNOWN, PCP Unavailable Unavailable SY, [...] Primary Care Unavailable CHATHA, GERARDO Admitting Unavailable CHATHAMAMEGERARDO Attending Unavailable SALLIE, REID H. Consulting Unavailable ANDREW WRIGHT Consulting Unavailable SCAARONINELLIE Admitting Unavailable SCELLIE LAZARO Attending Unavailable SAL SABILLON Primary Care Unavailable [...] Primary Care Unavailable GEOVANNI, FREDERICK Admitting Unavailable FREDERICK DALTON Attending Unavailable FREDERICK DALTON Consulting Unavailable Sal Sabillon Unavailable Sal Sabillon MD Primary Care Provider [phone] BECCA JUNE Attending Unavailable MARJ DEMARCO Attending Unavailable Sal Sabillon MD Primary Care Provider [phone] Sal Sabillon MD Primary Care Provider OSCAR ARVIZU Attending Unavailable OLGA VOGEL Attending Unavailable OSCAR ARVIZU Attending Unavailable DEBBIE GOMEZ Attending Unavailable Medications Current Medications Medication Drug [...] Active amantadine hydrochloride 100 mg oral tablet (4 sources) Influenza A M2 Protein Inhibitor Start: 10-27-2023 take 1 tablet by mouth once daily amantadine (Symmetrel) 100 MG tablet Take 1 tablet by mouth Daily 10/27/2023 Active take 1 tablet by jules th every twenty-four hours Amantadine HCl 100 MG 1 tablet Orally Once a day Active aspirin 81 mg chewable tablet (17 sources) Platelet Aggregation Inhibitor, Nonsteroidal Anti-inflammatory Drug Start: 08-14-2023 aspirin 81 MG chewable tablet Chew 1 tablet Daily 08/14/2023 Active Start: 03-15-2018 End: 09-11-2020 take 81 mg by mouth once daily Aspirin Discontinued 81 MG PO Daily 0 March 16, 2018 12:00am September 11, 2020 6:25pm take 1 tablet by jules th once daily Aspirin 81 81 MG 1 tablet Orally Once a day Active atorvastatin 40 mg oral tablet (13 sources) HMG-CoA Reductase Inhibitor Start: 08-14-2023 take [...] by mouth in the morning. 0 Active calcium chloride 0.0014 meq/ml / potassium chloride 0.004 meq/ml / sodium chloride 0.103 meq/ml / sodium lactate 0.028 meq/ml injectable solution (2 sources) Start: 04-05-2019 lactated ringers infusion cholestyramine resin 4000 mg powder for oral suspension (5 sources) Bile Acid Sequestrant take 1 dose by mouth once daily cholestyramine (Questran) 4 g packet use 1 (ONE) PACKET BY MOUTH DAILY Active citalopram 20 mg oral tablet (20 [...] 16, 2018 1:09pm take 1 capsule by [facility] every twenty-four hours Coenzyme Q-10 100 MG 1 capsule with a meal Orally Once a day Active CPAP Machine MISC (4 sources) CPAP Machine MIS C by Does not apply route 0 Active donepezil hydrochloride 10 mg oral tablet (12 sources) Start: 12-23-2023 End: 12-22-2024 take 1 tablet by mouth once daily donepezil (Aricept) 10 MG tablet Indications: Cognitive decline Take 1 tablet (10 mg) by mouth Daily 30 tablet 12/23/2023 12/22/2024 Active Start: 09-11-2020 End: 09-14-2020 take 10 mg by mouth once daily Donepezil Discontinued 10 MG PO Daily September 11, 2020 12:00am September 14, 2020 9:22pm 72 hr fentaNYL 0.025 mg/hr transdermal system (4 sources) Opioid Agonist Start: 04-11-2019 1 patch, Trans dermal, Administer over 72 Hours, EVERY 72 HOURS, First dose (after last modification) on 04/11/19 at 1600 Start: 04-08-2019 apply 1 dose transde rmal route every hour fentaNYL (DURAGESIC) 25 MCG/HR 1 patch Start: 04-07-2019 End: 04-07-2019 fentaNYL (SUBLIMAZE) injecti on 50 mcg Start: 04-05-2019 fentaNYL (SUBL IMAZE) injection 50 mcg Fish Oils (2 sources) take 1 capsule by mouth once daily omega-3 (fish oil) 600 MG capsule Take 1 capsule by mouth 1 (one) time each day at the same time Active fludrocortisone acetate 0.1 mg oral tablet (20 sources) Start: 12-30-2023 take 1 tablet by mouth every other day fludrocortisone (Florinef) 0.1 MG tablet Take 1 tablet by mouth every other day 12/30/2023 Active Start: 08-14-2023 take 0.1 mg by mouth [...] 14, 2023 1:37pm take 1 tablet by jules th four times weekly Fludrocortisone Acetate 0.1 MG 1 tablet Orally four times a Week Active take 1 tablet by jules th once daily fludrocortisone (FLORINEF) 0.1 MG tablet Take 0.1 mg by mouth daily 0 Active gabapentin 800 mg oral tablet (20 sources) Anti-epileptic Agent Start: 01-29-2024 take 800 mg by mouth three times daily Gabapentin Active 800 MG PO Three times daily January 29, 2024 12:00am Start: 12-23-2023 gabapentin (Ne urontin) 800 MG tablet Indications: Neurogenic pain 1 tab BID, september incr to TID 90 tablet 5 12/23/2023 Active Start: 08-14-2023 End: 01-29-2024 take 600 mg [...] tablet Indications: Neurogenic pain 1 tab BID, september incr to TID 90 tablet 5 06/24/2023 [...] 2100 Do not crush or break. hydrocortisone 10 mg oral tablet (20 sources) Corticosteroid Start: 05-05-2024 take 2 tablets by mouth in the morning, then take 1 tablet by mouth in the evening hydrocortisone (Cortef) 10 MG tablet Indications: Type 2 diabetes mellitus with other circulatory complications (CMS/HCC) TAKE 2 TABLETS BY MOUTH IN THE MORNING AND ONE TABLET BY MOUTH IN THE EVENING 270 tablet 1 05/05/2024 Active Start: 08-14-2023 take 20 mg by mouth once daily in the morning Hydrocortisone Active 20 MG PO Every morning August 14, 2023 12:00am Start: 08-14-2023 take 10 mg by mouth once daily at bedtime Hydrocortisone Active 10 MG PO Daily at bedtime August 14, 2023 12:00am Start: 04-08-2019 take [...] 2024 3:07pm take 1 tablet by jules th once daily levothyroxine (Synthroid, Levoxyl) 125 MCG tablet Take 1 tablet by mouth Daily Active take 1 tablet by jules th once daily in the morning Levothyroxine Sodium [...] mg by mouth daily 0 Active magnesium gluconate 550 mg oral tablet (2 sources) take 1 tablet by mouth once daily magnesium 30 MG tablet Take 1 tablet by mouth Daily Active magnesium oxide 400 mg oral tablet (8 sources) Start: 08-14-2023 Magnesium Oxide Active 400 MG PO Every 48 hours August 14, 2023 12:00am Start: 01-16-2023 take 1 tablet by jules every other day Magnesium Oxide 400 MG 1 Tablet Orally every other day for 90 days Dec, Active Start: 02-08-2019 End: 04-08-2019 take 1 tablet by mouth once daily magnesium oxide (MAG-OX) 400 (241.3 Mg) MG TABS tablet Take 400 mg by mouth daily 02/08/2019 04/08/2019 Discontinued memantine hydrochloride 10 mg oral tablet (14 sources) U-gjnwzb-B-aspartate Receptor Antagonist Start: 08-14-2023 End: 12-22-2024 take 1 tablet by mouth in the morning memantine (Namenda) 10 MG tablet Indications: Cognitive decline Take 1 tablet (10 mg) by mouth in the morning and 1 tablet (10 mg) before bedtime. 60 tablet 12/23/2023 12/22/2024 Active take [facility] mem[facility] (Namenda) 10 MG tablet Take 1 [...] at 2100 take 3 tablets by mo [facility] in the morning metoprolol tartrate (Lopressor) 25 MG tablet Take 3 tablets by mouth in the morning and 3 tablets before bedtime. Active Multiple Vitamins-Minerals (CENTRUM ADULT PO) (2 sources) take 1 tablet by mouth once daily Multiple Vitamins-Minerals (CENTRUM ADULT PO) Take 1 tablet by mouth Daily Active Multiple Vitamins-Minerals (THERAPEUTIC MULTIVITAMIN-MINERALS) tablet (3 sources) take 1 tablet by mouth once daily Multiple Vitamins-Minerals (THERAPEUTIC MULTIVITAMIN-MINERALS) tablet Take 1 tablet by mouth daily 0 Active Multivitamin Adults - (6 sources) Multivitamin Logan lts - as directed Orally Active Multivitamin preparation (3 sources) Start: 2023 take 1 tablet by mouth once daily Multivitamin Active 1 TAB PO Daily August 14, 2023 12:00am Burdette 3 Fish Oil (4 sources) Burdette 3 Fish Oil one tablet daily Active Burdette-3 Fatty Acids (FISH OIL) 600 MG CAPS (3 sources) Burdette-3 Fatty Ac ids (FISH OIL) 600 MG CAPS Take by mouth daily 0 Active pantoprazole 40 mg delayed release oral tablet (2 sources) Proton Pump Inhibitor Start: 2018 take 40 mg by mouth once daily before breakfast 40 mg, Oral, DAILY BEFORE BREAKFAST, First dose (after last modification) on 04/10/19 at 0700 Do not crush or break. polyethylene glycol 3350 80264 mg powder for oral solution (1 source) Osmotic Laxative Start: 2018 polyethylene glycol (GLYCOLAX) packet 17 g 100 ml potassium chloride 0.1 meq/ml injection (4 sources) Start: 2018 take 10 mL intravenous route every hour as needed 10 mEq, Intravenous, at 100 mL/hr, PRN, Potassium Replacement, Starting 04/09/19 at 1749 K Lab Replacement Action 3.1-3.5&nbs p; &nb sp; 10 mEq IVPB x 4 doses (40 mEq Total) 2.7-3.0&nbs p; &nb sp; 10 mEq IVPB x 6 doses (60 mEq Total) < 2.7 &n bsp; & nbsp; CALL PHYSICIAN and 10 mEq IVPB x 6 doses (60 mEq Total) Infus e at 10 mEq/hr. Repeat Potassium lab 1 hour after final administration. No t for use in patients with CrCl less [...] 6.25 mg rOPINIRole 2 mg oral tablet (14 sources) Nonergot Dopamine Agonist Start: 04-08-2019 take [...] 1 tablet by mouth in the morning. Active take 8 mg by mouth o [...] Status: Taking; Provider: Jesse Savage ( ) semaglutide (Ozempic) 4 MG/3ML solution pen-injector (2 sources) Start: 01-20-2024 inject 1 mg by subcutaneous injection every week semaglutide (Ozempic) 4 MG/3ML solution pen-injector Inject 1 mg under the skin 1 (one) time per week 01/20/2024 Active Semaglutide,0.25 or 0.5MG/DOS, 2 MG/3ML solution pen-injector (2 sources) Start: 08-14-2023 Semaglutide,0.25 or 0.5MG/DOS, 2 MG/3ML solution pen-injector As Directed 08/14/2023 Active simvastatin 20 mg oral tablet (9 sources) [...] e flush 0.9 % injection 10 mL ubidecarenone 100 mg / vitamin e 5 unt oral capsule (2 sources) Start: 08-14-2023 take 1 capsule by mouth once daily coenzyme Q-10 100 MG capsule Take 1 capsule by mouth Daily 08/14/2023 Active warfarin (COUMADIN) daily dosing (placeholder) (2 sources) Start: 04-09-2019 warfarin (COUM [...] mg / levodopa 100 mg oral tablet (14 sources) Aromatic Amino Acid Decarboxylation Inhibitor, Aromatic Amino Acid Start: 09-11-2020 End: 09-14-2020 take 1 tablet by mouth twice daily Carbidopa-Levodopa Discontinued 25 - 100 TAB PO Twice daily September 11, 2020 12:00am September 14, 2020 9:22pm take 1 tablet by jules th in the morning carbidopa-levodopa (Parcopa) 25-100 MG disintegrating tablet Take 1 tablet by mouth in the morning and 1 tablet in the evening. Active take 1 tablet by jules th in [...] 04/05/2019 04/13/2019 Discontinued (Stop Taking at Discharge) Burdette-3 Fatty Acids-Fish Oil (3 sources) Start: 03-15-2018 End: 03-16-2018 take 1 capsule by mouth once daily Burdette-3 Fatty Acids-Fish Oil (Fish Oil) 300-1,000 mg Capsule Discontinued 1 CAP PO Daily March 15, 2018 12:00am March 16, 2018 1:09pm 0.4 ml enoxaparin sodium 100 mg/ml prefilled [...] mL metFORMIN hydrochloride 500 mg oral tablet (12 sources) Biguanide Start: 03-15-2018 End: 08-14-2023 take [...] omeprazole 40 mg delayed release oral capsule (12 sources) Proton Pump Inhibitor Start: 03-15-2018 End: 09-11-2020 take 40 mg by mouth once daily Omeprazole Discontinued 40 MG PO Daily March 15, 2018 12:00am September 11, 2020 6:29pm ondansetron 4 mg disintegrating oral tablet (7 sources) Serotonin-3 Receptor Antagonist Start: 09-11-2020 End: 09-14-2020 take 4 mg by mouth every six hours Ondansetron Discontinued 4 MG PO Q6H September 11, 2020 12:00am September 14, 2020 [...] 5 % 50 mL IVPB (mini-bag) sennosides, group home 8.6 mg oral tablet (2 sources) Start: 04-05-2019 End: 04-19-2019 take 1 tablet by mouth twice daily senna (SENOKOT) 8.6 MG tablet Take 1 tablet by mouth 2 times daily for 14 days 28 tablet 0 04/05/2019 04/08/2019 Discontinued tiZANidine 4 mg oral tablet (12 sources) Central alpha-2 Adrenergic Agonist Start: 09-11-2020 [...] wa rfarin (COUMADIN) 4 MG tablet Indications: M-CH-Kmm-Sun Take 5 mg by mouth daily Indications: A-YM-Uwt-Sun 0 Active take 1 tablet by jules th once daily warfarin (COUMADIN) 7.5 MG tablet Indications: -- Take 7.5 mg by mouth daily Indications: [...] disease, unspecified; Translations: [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] Onset: [...] Episodic Occlusion or stenosis of precerebral arteries (7 sources) Bilateral stenosis of carotid arteries; Translations: [Occlusion and stenosis of bilateral carotid arteries] Onset: 3 06-24-2023 Chronic Osteoarthritis (18 sources) Arthritis of hand; Translations: [Primary osteoarthritis, left hand] Chronic Other aftercare (1 source) 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; Translations: [FPC (current) use of insulin] Onset: 8 Episodic Other aftercare (1 source) FPC (current) use of aspirin; Translations: [FPC (current) use of aspirin] Onset: 8 Episodic Other aftercare (1 source) 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; Translations: [FPC (current) use of oral hypoglycemic drugs] Onset: [...] origin)] Onset: 2 Resolved: 2 Chronic Other ear and sense organ disorders (1 source) Sensorineural hearing loss, bilateral; Translations: [Sensorineural hearing loss, bilateral] 05-05-2024 Chronic Other ear and sense organ disorders (1 source) Bilateral tinnitus; Translations: [Tinnitus, bilateral] 05-05-2024 Episodic Other endocrine disorders (4 sources) Primary adrenocortical insufficiency; Translations: [Glucocorticoid deficiency] Onset: 8 08-14-2023 Chronic Other endocrine disorders (9 sources) Ontario's disease; 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] Onset: 9 03-30-2019 Chronic Other endocrine disorders (2 sources) Primary adrenocortical insufficiency; 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] Onset: 8 Chronic Other gastrointestinal disorders (3 sources) Diarrhea; Translations: [Diarrhea, unspecified] 09-14-2020 Episodic Other hereditary and degenerative nervous system conditions (1 source) Restless legs syndrome; Translations: [Restless legs syndrome] Onset: 8 Chronic Other hereditary and degenerative nervous system conditions (15 sources) Restless legs; Translations: [Restless legs syndrome] [...] upper limb] Chronic Other nervous system disorders (5 sources) Polyneuropathy; Translations: [Polyneuropathy, unspecified] Onset: 3 [...] [Blood chemistry abnormal] 03-15-2018 Episodic Parkinson`s disease (16 sources) Parkinson's disease; Translations: [Parkinson's disease] Onset: 3 06-24-2023 Chronic Pulmonary heart disease (11 sources) Other pulmonary embolism without acute cor pulmonale; Translations: [Pulmonary embolism] Onset: 8 Resolved: 9 03-30-2019 Episodic Residual codes; unclassified (1 source) Obstructive sleep apnea (adult) (pediatric); Translations: [Obstructive sleep apnea (adult) (pediatric)] Onset: 8 Chronic Residual codes; unclassified (11 sources) Obstructive sleep apnea syndrome; Translations: [Obstructive sleep apnea] Onset: 4 04-10-2019 Chronic Residual codes; unclassified (5 sources) Periodic limb movement disorder; Translations: [Periodic [...] 04-09-2019 04-10-2019 Episodic Other connective tissue disease (7 sources) Neurogenic pain; Translations: [Neuralgia and neuritis, unspecified] Onset: 12-16-2022 06-24-2023 Episodic Other connective tissue disease (7 sources) Spasm of cervical paraspinous muscle; Translations: [Other muscle spasm] Onset: 10-11-2022 06-24-2023 Episodic Other connective tissue disease (5 sources) Cramp; Translations: [Cramp and spasm] Onset: [...] 04-09-2019 04-10-2019 Episodic Other nervous system disorders (7 sources) Impaired cognition; Translations: [Other symptoms and [...] Test Name Value Interpretation Reference Range Facility Auditory function testson Right Ear: Mild to m oderate sensorineural hearing loss above 2K Hz Left Ear: Moderate rising to mild sensorineural hearing loss from 3K Hz - 8K Hz Impressions: Right Ear: 20 dB decrease at 8K Hz only Left Ear: 19 dB decrease at 6K Hz only [facility] Erythrocyte distribution wid th Auto (RBC) [Ratio]on 01-22-2024 Erythrocyte distribution width (RBC) [Ratio] 12.0 % 11.0-15.0 [facility] Estimated glomerular filtrat ion rate (GFR) non- Americanon 01-22-2024 GFR/1.73 sq M.predicted among non-blacks MDRD (S/P/Bld) [Vol rate/Area] 29 mL/min/{1.73_m2} Low >=60 [facility] Hematocrit Auto (Bld) [Volum e fraction]on 01-22-2024 Hematocrit (Bld) [Volume fraction] 44.0 % 42.0-54.0 [facility] Hemoglobin [Mass/volume] in Bloodon 01-22-2024 Hemoglobin (Bld) [Mass/Vol] 15.0 g/dL 14.0-18.0 [facility] Laboratory - Chemistry and C hemistry - challengeon 01-22-2024 Albumin [Mass/Vol] 3.6 g/dL 3.4-5.0 [facility] Calcium [Mass/Vol] 8.9 mg/dL 8.5-10.1 [facility] Chloride [Moles/Vol] 99 mmol/L 98-107 [facility] CO2 [Moles/Vol] 28.7 mmol/L 21.0-32.0 [facility] Creatinine [Mass/Vol] 2.24 mg/dL High 0.70-1.30 [facility] GFR/1.73 sq M.predicted MDRD (S/P/Bld) [Vol rate/Area] 35 mL/min/{1.73_m2} Low >=60 [facility] Glucose [Mass/Vol] 303 mg/dL High 74-106 [facility] Magnesium [Mass/Vol] 1.9 mg/dL 1.8-2.4 [facility] Potassium [Moles/Vol] 4.9 mmol/L 3.5-5.1 [facility] Sodium [Moles/Vol] 137 mmol/L 136-145 [facility] Urate [Mass/Vol] 7.7 mg/dL High 3.5-7.2 [facility] Urea nitrogen [Mass/Vol] 33.0 mg/dL High 7.0-18.0 [facility] Urea nitrogen/Creatini ne [Mass ratio] 14.7 mg/mg [facility] Bilirubin Ql (U) Negative NEGATIVE [facility] Glucose (U) [Mass/Vol] mg/dL Abnormal NEGATIVE [facility] Ketones Ql (U) Negative NEGATIVE [facility] pH (U) 5.5 [pH] 5.0-9.0 [facility] Specific gravity (U) [Rel density] 1.015 1.005-1.025 [facility] Urobilinogen Qn (U) 0.2 {Yared'U}/dL 0.2-1.0 [facility] Laboratory - Specimen inform ationon 01-22-2024 Appearance (U) CLEAR CLEAR [facility] Color (U) LT. YELLOW YELLOW [facility] Laboratory - Urinalysison Leukocyte esterase Test strip Ql (U) Negative NEGATIVE [facility] Mucus Ql (Urine sed) TRACE Abnormal NONE SEEN [facility] Nitrite Ql (U) Negative NEGATIVE [facility] Protein (U) [Mass/Vol] 11.7 mg/dL <=11.9 [facility] Protein Ql (U) Negative NEG/TRACE [facility] Leukocytes [#/volume] correc darlyn for nucleated erythrocytes in Blood by Automated counon 01-22-2024 WBC corrected for nucl RBC Auto (Bld) [#/Vol] 9.7 10 3/uL 4.0-11.0 [facility] MCH Auto (RBC) [Entitic mass ]on 01-22-2024 MCH (RBC) [Entitic mass] 31.5 pg 25.9-34.0 [facility] MCHC Auto (RBC) [Mass/Vol]on 01-22-2024 MCHC (RBC) [Mass/Vol] 34.1 g/dL 29.9-35.2 [facility] MCV Auto (RBC) [Entitic vol] on 01-22-2024 MCV (RBC) [Entitic vol] 92.4 fL 80.0-94.0 [facility] No Panel Informationon 01-21 25-Hydroxy Vitamin D Total 68.1 ng/mL [facility] Comment on above: <20 ng/mL Vit D defi cient20-<30 ng/mL Vit D [id number] ng/mL Vit D sufficient>100 ng/mL Potential Toxicity Parathyroid Hormone (Intact) 61 pg/mL 15-65 [facility] Comment on above: Performed at: - [facility] [address] [id number] Director: Prakash Barbour PhD, Phone: [phone] Phosphorus Level 3.8 mg/dL 2.6-4.7 [facility] Urine Bacteria NONE SEEN #/HPF NONE SEEN [facility] Urine Occult Blood Negative NEGATIVE [facility] Urine Random Creatinine 81.08 mg/dL 20.00-300.00 [facility] Urine RBC NONE SEEN #/HPF 0-2 [facility] Urine Squamous Epithelial Cells FEW #/LPF Abnormal NONE/RARE [facility] Urine WBC NONE SEEN #/HPF NONE SEEN [facility] Platelet mean volume Auto (B ld) [Entitic vol]on 01-22-2024 Platelet mean volume (Bld) [Entitic vol] 12.7 fL 9.5-13.5 [facility] Platelets Auto (Bld) [#/Vol] on 01-22-2024 Platelets (Bld) [#/Vol] 230 10 3/uL 150-450 [facility] RBC Auto (Bld) [#/Vol]on RBC (Bld) [#/Vol] 4.76 10 6/uL 4.70-6.10 [facility] Serum or plasma anion gap de terminationon 01-22-2024 Anion gap [Moles/Vol] 14.2 mmol/L [facility] Urine protein/creatinine rat ioon 01-22-2024 Protein/Creatinin e (U) [Ratio] 0.14 [facility] 37on 01-06-2024 37 *We will increase yo ur metoprolol to 100mg twice daily. You can take 2 tablets of your current 50mg tablets twice daily until this runs out then start the new prescription with 1 tablet daily. *No objections with your upcoming dental procedure. Normal [facility] Office Visiton 01-06-2024 Follow-up visit [id number] AbrahamLuciaDon D 1950 M Date Provider Department Center 01/06/2024 BECCA RODRIGUEZ CARD [facility] Family History Problem Relation Age of Onset Diabetes Mother Coronary artery disease Brother Other Brother Heart failure Brother Family Status - Relation Status Age at Mother Brother Level of Service:82423 OK OFFICE/OUTPATIENT ESTABLISHED MOD MDM 30 MIN Reason for Visit and Comments: Hypertension [037434] Coronary Artery Disease [187] Normal [facility] Automated epithelial cells c ount in urine sediment (number/area)on 08-05-2023 Epithelial cells Auto (Urine sed) [#/Area] FEW #/LPF NONE/RARE [facility] Automated leukocytes count i n urine sediment (number/area)on 08-05-2023 WBC Auto (Urine sed) [#/Area] NONE SEEN #/HPF 0-2 [facility] Automated urine specific gra vity by refractometryon 08-05-2023 Specific gravity Refractometry automated (U) [Rel density] 1.025 1.005-1.025 [facility] Bilirubin Auto test strip (U ) [Mass/Vol]on 08-05-2023 Bilirubin (U) [Mass/Vol] Negative NEGATIVE [facility] Cholesterol in LDL Calc [Mas s/Vol]on 08-05-2023 Cholesterol in LDL [Mass/Vol] 33.0 mg/dL [facility] Comment on above: <100 mg/dl [id number] 0-129 mg/dl NEAR OR ABOVE [id number] mg/dl BORDERLINE [id number] mg/dl HIGH>190 mg/dl VERY HIGH Cholesterol in VLDL Calc [Ma ss/Vol]on 08-05-2023 Cholesterol in VLDL [Mass/Vol] 30.8 mg/dL [facility] Color Auto (U)on 08-05-2023 Color (U) YELLOW YELLOW [facility] Erythrocyte distribution wid th Auto (RBC) [Ratio]on 08-05-2023 Erythrocyte distribution width (RBC) [Ratio] 12.1 % 11.0-15.0 [facility] Estimated glomerular filtrat ion rate (GFR) non- Americanon 08-05-2023 GFR/1.73 sq M.predicted among non-blacks MDRD (S/P/Bld) [Vol rate/Area] 44 mL/min/{1.73_m2} >=60 [facility] Hematocrit Auto (Bld) [Volum e fraction]on 08-05-2023 Hematocrit (Bld) [Volume fraction] 45.3 % 42.0-54.0 [facility] Hemoglobin [Mass/volume] in Bloodon 08-05-2023 Hemoglobin (Bld) [Mass/Vol] 15.1 g/dL 14.0-18.0 [facility] Ketones Auto test strip (U) [Mass/Vol]on 08-05-2023 Ketones (U) [Mass/Vol] Negative NEGATIVE [facility] Laboratory - Chemistry and C hemistry - challengeon 08-05-2023 Albumin [Mass/Vol] 3.3 g/dL 3.4-5.0 [facility] Calcium [Mass/Vol] 8.5 mg/dL 8.5-10.1 [facility] [facility] Chloride [Moles/Vol] 98 mmol/L 98-107 [facility] Cholesterol [Mass/Vol] 110 mg/dL <=200 [facility] Cholesterol in HDL [Mass/Vol] 47 mg/dL 40-60 [facility] Comment on above: > or =60 mg/dl - LOW CARDIOVASCULAR RISK<40 mg/dl - HIGH CARDIOVASCULAR RISK CO2 [Moles/Vol] 26.4 mmol/L 21.0-32.0 [facility] Creatinine [Mass/Vol] 1.57 mg/dL 0.70-1.30 [facility] Free T4 [Mass/Vol] 0.95 ng/dL 0.76-1.46 [facility] GFR/1.73 sq M.predicted MDRD (S/P/Bld) [Vol rate/Area] 53 mL/min/{1.73_m2} >=60 [facility] Glucose [Mass/Vol] 300 mg/dL 74-106 [facility] Magnesium [Mass/Vol] 1.9 mg/dL 1.8-2.4 [facility] Potassium [Moles/Vol] 3.8 mmol/L 3.5-5.1 [facility] Sodium [Moles/Vol] 133 mmol/L 136-145 [facility] Triglyceride [Mass/Vol] 154 mg/dL <=150 [facility] TSH Qn 1.788 m[IU]/L 0.358-3.740 [facility] Urate [Mass/Vol] 5.4 mg/dL 3.5-7.2 [facility] Urea nitrogen [Mass/Vol] 23.0 mg/dL 7.0-18.0 [facility] Urea nitrogen/Creatini ne [Mass ratio] 14.6 mg/mg [facility] Laboratory - Urinalysison Protein (U) [Mass/Vol] 19.0 mg/dL <=11.9 [facility] Leukocytes [#/volume] correc darlyn for nucleated erythrocytes in Blood by Automated counon 08-05-2023 WBC corrected for nucl RBC Auto (Bld) [#/Vol] 11.2 10 3/uL 4.0-11.0 [facility] MCH Auto (RBC) [Entitic mass ]on 08-05-2023 MCH (RBC) [Entitic mass] 31.7 pg 25.9-34.0 [facility] MCHC Auto (RBC) [Mass/Vol]on 08-05-2023 MCHC (RBC) [Mass/Vol] 33.3 g/dL 29.9-35.2 [facility] MCV Auto (RBC) [Entitic vol] on 08-05-2023 MCV (RBC) [Entitic vol] 95.2 fL 80.0-94.0 [facility] Microalbumin [Mass/volume] i n Urineon 08-05-2023 Albumin DL <= 20 mg/L (U) [Mass/Vol] 3.7 mg/dL <=30.0 [facility] Mucus LM Ql (Urine sed)on Mucus Ql (Urine sed) TRACE NONE SEEN [facility] No Panel Informationon 08-04 25-Hydroxy Vitamin D Total 61.2 ng/mL [facility] Comment on above: <20 ng/mL Vit D defi cient20-<30 ng/mL Vit D [id number] ng/mL Vit D sufficient>100 ng/mL Potential Toxicity C-Peptide 19.7 ng/mL 1.1-4.4 [facility] Comment on above: C-Peptide reference interval is for fasting patients.Performed at: [facility] [address] [id number] Director: Prakash Barbour PhD, Phone: [phone] Free Triiodothyronine 1.71 pg/mL 2.18-3.98 [facility] Parathyroid Hormone (Intact) 34 pg/mL 15-65 [facility] Comment on above: Performed at: [facility] [address] [id number] Director: Prakash Barbour PhD, Phone: [phone] Phosphorus Level 3.9 mg/dL 2.6-4.7 [facility] Urine Random Creatinine 178.56 mg/dL 20.00-300.00 [facility] Platelet mean volume Auto (B ld) [Entitic vol]on 08-05-2023 Platelet mean volume (Bld) [Entitic vol] 12.7 fL 9.5-13.5 [facility] Platelets Auto (Bld) [#/Vol] on 08-05-2023 Platelets (Bld) [#/Vol] 234 10 3/uL 150-450 [facility] Protein Auto test strip (U) [Mass/Vol]on 08-05-2023 Protein (U) [Mass/Vol] Negative NEG/TRACE [facility] RBC Auto (Bld) [#/Vol]on RBC (Bld) [#/Vol] 4.76 10 6/uL 4.70-6.10 [facility] Serum or plasma anion gap de terminationon 08-05-2023 Anion gap [Moles/Vol] 12.4 mmol/L [facility] Serum or plasma total choles terol/high density lipoprotein (HDL) cholesterol mass caden 08-05-2023 Cholesterol.total /Cholesterol in HDL [Mass ratio] 2.3 {ratio} [facility] Comment on above: 3.3 - 4.4 LOW RISK4. 4 - 7.1 AVERAGE RISK7.1 - 11.0 MODERATE RISK>11.0 HIGH RISK Specific gravity Auto test s trip (U) [Rel density]on 08-05-2023 Specific gravity (U) [Rel density] CLEAR CLEAR [facility] Urine bacteria detection by automated methodon 08-05-2023 Bacteria Auto Ql (U) NONE SEEN #/HPF NONE SEEN [facility] Urine glucose measurement by test strip (mass/volume)on 08-05-2023 Glucose Test strip (U) [Mass/Vol] Negative NEGATIVE [facility] Urine hemoglobin detection b y automated test stripon 08-05-2023 Hemoglobin Auto test strip Ql (U) Negative NEGATIVE [facility] Urine microalbumin/creatinin e mass ratioon 08-05-2023 Albumin/Creatinin e DL <= 20 mg/L (U) [Mass ratio] 20.9 mg/g 0.0-29.9 [facility] Comment on above: NO MICROALBUMINURIA 0-29 MG/GCLINICAL MICROALBUMINURIA 30-300 MG/GMACROALBUMINURIA >300 MG/G Urine nitrite detection by a utomated test stripon 08-05-2023 Nitrite Auto test strip Ql (U) Negative NEGATIVE [facility] Urine protein/creatinine rat ioon 08-05-2023 Protein/Creatinin e (U) [Ratio] 0.11 [facility] Urine sediment leukocyte cou nt by microscopy (number/high power field)on 08-05-2023 WBC LM.HPF (Urine sed) [#/Area] NONE SEEN #/HPF NONE SEEN [facility] Urobilinogen Auto test strip (U) [Mass/Vol]on 08-05-2023 Urobilinogen Qn (U) 0.2 {Yared'U}/dL 0.2-1.0 [facility] pH Auto test strip (U)on pH (U) 5.5 [pH] 5.0-9.0 [facility] Office Visiton 05-26-2023 Follow-up visit [id number] Don Elkins 1950 M Date Provider Department Center 05/26[facility]20[facility] Family History Problem Relation Age of Onset Diabetes Mother Coronary artery disease Brother Other Brother Heart failure Brother Family Status - Relation Status Age at Mother Brother Level of Service:17880 [place] OFFICE/OUTPATIENT ESTABLISHED LOW MDM 20 MIN Normal [facility] PTH INTACTon 06-14-2022 PTH, Intact 48 pg/mL Normal 15-65 [facility] Comment on above: Performed By: #### P THINT #### [facility] [address] [place] [address] Dr. Stu Sequeira HEMOGRAM AND PLATELon 2022 Hematocrit (Bld) [Volume fraction] 47.3 % Normal 42.0-54.0 [facility] Comment on above: Performed By: #### H H #### [facility] [address] [place] [address] Dr. Stu Sequeira Hemoglobin (Bld) [Mass/Vol] 14.7 g/dL Normal 14.0-18.0 [facility] Comment on above: Performed By: #### H H #### [facility] [address] [place] [address] Dr. Stu Sequeira MCH (RBC) [Entitic mass] 31.0 pg Normal 25.9-34.0 [facility] Comment on above: Performed By: #### H H #### [facility] [address] [place] [address] Dr. Stu Sequeira MCHC (RBC) [Mass/Vol] 31.1 g/dL Normal 29.9-35.2 [facility] Comment on above: Performed By: #### H H #### [facility] [address] [place] [address] Dr. Stu Sequeira MCV (RBC) [Entitic vol] 99.8 fL Critically high 80.0-94.0 [facility] Comment on above: Performed By: #### H H #### [facility] [address] [place] [address] Dr. Stu Sequeira PLT 268 103/ul Normal 150-450 [facility] Comment on above: Performed By: #### H H #### [facility] [address] [address] [address] Stu Sequeira RBC 4.74 106/ul Normal 4.70-6.10 [facility] Comment on above: Performed By: #### H H #### [facility] [address] [address] [address] Stu Sequeira WBC 9.8 103/ul Normal 4.0-11.0 [facility] Comment on above: Performed By: #### H H #### [facility] [address] [address] [address] Stu Sequeira MAGNESIUMon 06-13-2022 Magnesium [Mass/Vol] 1.6 mg/dL Critically low 1.8-2.4 [facility] Comment on above: Performed By: #### U SANTINO, MG, RENAL #### [facility] [address] [place] [address] Dr. Stu Sequeira RENAL FUNCTION PANELon 06-13 Albumin [Mass/Vol] 3.8 g/dL Normal 3.4-5.0 [facility] Comment on above: Performed By: #### U SANTINO, MG, RENAL #### [facility] [address] [place] [address] Dr. Stu Sequeira Calcium [Mass/Vol] 9.2 mg/dL Normal 8.5-10.1 [facility] Comment on above: Performed By: #### U SANTINO, MG, RENAL #### [facility] [address] [place] [address] Dr. Stu Sequeira Chloride [Moles/Vol] 99 mmol/L Normal 98-107 [facility] Comment on above: Performed By: #### U SANTINO, MG, RENAL #### [facility] [address] [address] [address] Stu Sequeira CO2 [Moles/Vol] 32.2 mmol/L Critically high 21.0-32.0 [facility] Comment on above: Performed By: #### U SANTINO, MG, RENAL #### [facility] [address] [address] [address] Stu Sequeira Creatinine [Mass/Vol] 1.58 mg/dL Critically high 0.70-1.30 [facility] Comment on above: Performed By: #### U SANTINO, MG, RENAL #### [facility] [address] [address] [address] Stu Sequeira EGFR-AF GIBRALTARIAN 53 mL/min/1.73m2 Critically low >=60 [facility] Comment on above: Performed By: #### U SANTINO, MG, RENAL #### [facility] [address] [place] [address] Dr. Stu Sequeira EGFR-NON AF GIBRALTARIAN 43 mL/min/1.73m2 Critically low >=60 [facility] Comment on above: Performed By: #### U SANTINO, MG, RENAL #### [facility] [address] [place] [address] Dr. Stu Sequeira Glucose [Mass/Vol] 95 mg/dL Normal 74-106 [facility] Comment on above: Performed By: #### U SANTINO, MG, RENAL #### [facility] [address] [place] [address] Dr. Stu Sequeira Phosphate [Mass/Vol] 4.2 mg/dL Normal 2.6-4.7 [facility] Comment on above: Performed By: #### U SANTINO, MG, RENAL #### [facility] [address] [place] [address] Dr. Stu Sequeira Potassium [Moles/Vol] 4.9 mmol/L Normal 3.5-5.1 [facility] Comment on above: Performed By: #### U SANTINO, MG, RENAL #### [facility] [address] [place] [address] Dr. Stu Sequeira Sodium [Moles/Vol] 138 mmol/L Normal 136-145 [facility] Comment on above: Performed By: #### U SANTINO, MG, RENAL #### [facility] [address] [place] [address] Dr. Stu Sequeira Urea nitrogen [Mass/Vol] 24.0 mg/dL Critically high 7.0-18.0 [facility] Comment on above: Performed By: #### U SANTINO, MG, RENAL #### [facility] [address] [place] [address] Dr. Stu Sequeira UA RANDOM W/MICROSCOPICon BACTERIA TRACE Abnormal NONE SEEN [facility] Comment on above: Performed By: #### U AMIC #### [facility] [address] [place] [address] Dr. Stu Sequeira Bilirubin Ql (U) Negative Normal NEGATIVE [facility] Comment on above: Performed By: #### U AMIC #### [facility] [address] [place] [address] Dr. Stu Sequeira CAST NONE SEEN Normal NONE SEEN [facility] Comment on above: Performed By: #### U AMIC #### [facility] [address] [place] [address] Dr. Stu Sequeira Clarity (U) CLEAR Normal CLEAR [facility] Comment on above: Performed By: #### U AMIC #### [facility] [address] [place] [address] Dr. Stu Sequeira Color (U) YELLOW Normal YELLOW [facility] Comment on above: Performed By: #### U AMIC #### [facility] [address] [place] [address] Dr. Stu Sequeira Crystals LM Nom (Urine sed) NONE SEEN Normal NONE SEEN [facility] Comment on above: Performed By: #### U AMIC #### [facility] [address] [place] [address] Dr. Stu Sequeira Epithelial cells LM Ql (Urine sed) RARE Normal NONE SEEN /RARE [facility] Comment on above: Performed By: #### U AMIC #### [facility] [address] [place] [address] Dr. Stu Sequeira Glucose Ql (U) Negative Normal NEGATIVE [facility] Comment on above: Performed By: #### U AMIC #### [facility] [address] [place] [address] Dr. Stu Sequeira Hemoglobin Ql (U) Negative Normal NEGATIVE [facility] Comment on above: Performed By: #### U AMIC #### [facility] [address] [place] [address] Dr. Stu Sequeira Ketones Ql (U) Negative Normal NEGATIVE [facility] Comment on above: Performed By: #### U AMIC #### [facility] [address] [address] [address] Stu Sequeira LEUKOCYTES Negative Normal NEGATIVE [facility] Comment on above: Performed By: #### U AMIC #### [facility] [address] [place] [address] Dr. Stu Sequeira MUCOUS NONE SEEN Normal NONE SEEN [facility] Comment on above: Performed By: #### U AMIC #### [facility] [address] [place] [address] Dr. Stu Sequeira Nitrite Ql (U) Negative Normal NEGATIVE [facility] Comment on above: Performed By: #### U AMIC #### [facility] [address] [place] [address] Dr. Stu Sequeira pH (U) 5.5 [pH] Normal 5-9 [facility] Comment on above: Performed By: #### U AMIC #### [facility] [address] [place] [address] Dr. Stu Sequeira RBC NONE SEEN Abnormal 0-2 [facility] Comment on above: Performed By: #### U AMIC #### [facility] [address] [place] [address] Dr. Stu Sequeira SPEC GRAVITY 1.025 Normal 1.005-<=1.02 5 [facility] Comment on above: Performed By: #### U AMIC #### [facility] [address] [place] [address] Dr. Stu Sequeira UA PROTEIN Negative Normal NEGATIVE/ TRACE [facility] Comment on above: Performed By: #### U AMIC #### [facility] [address] [place] [address] Dr. Stu Sequeira Urobilinogen Qn (U) 0.2 {Yared'U}/dL Normal 0.2 - 1.0 [facility] Comment on above: Performed By: #### U AMIC #### [facility] [address] [place] [address] Dr. Stu Sequeira WBC 0-2 Abnormal NONE SEEN [facility] Comment on above: Performed By: #### U AMIC #### [facility] [address] [place] [address] Dr. Stu Sequeira URIC ACID SERUMon 06-13-2022 Urate [Mass/Vol] 5.7 mg/dL Normal 3.5-7.2 [facility] Comment on above: Performed By: #### U SANTINO, MG, RENAL #### [facility] [address] [place] [address] Dr. Stu Sequeira URINE T PROTEIN CREAT RATIOo n 06-13-2022 Protein (U) [Mass/Vol] 13.6 mg/dL Critically high <=12.0 [facility] Comment on above: Performed By: #### U RTPCR #### [facility] [address] [place] [address] Dr. Stu Sequeira UR PROT CREAT RAT 0.10 Normal [facility] Comment on above: Performed By: #### U RTPCR #### [facility] [address] [place] [address] Dr. Stu Sequeira URINE CREAT 133.40 mg/dL Normal 20.00-300.00 [facility] Comment on above: Performed By: #### U RTPCR #### [facility] [address] [place] [address] Dr. Stu Sequeira VITAMIN D 25 OHon 06-13-2022 VIT D 25-OH 66.5 ng/mL Normal [facility] Comment on above: Performed By: #### V ITAD #### [facility] [address] [place] [address] Dr. Stu Sequeira VIT D RANGES SEE BELOW Normal [facility] Comment on above: Result Comment: <20 ng/mL Vit D deficient 20 - <30 ng/mL Vit D insufficient 30 - 100 ng/mL Vit D sufficient >100 ng/mL Potential Toxicity Performed By: #### V ITAD #### [facility] [address] [place] [address] Dr. Stu Sequeira ECHOCARDIO M/2D COMPLETEon 0 06-07-2022 ECHOCARDIO M/2D COMPLETE Patient: ABRAHAM DON Robbie Exam Date: 06/07/2022 : 1950 Gender:M Ordering : DR DAMARIS MEIER M.D. Admission #: [id number] Family : DR SAL SABILLON M.D. Order #: [id number] CLICK HERE TO VIEW EXAM ECHOCARDIOGRAM REPORT [...] Meier M.D. on 06/07/2022 at 12:23 Normal [facility] LIPID PROFILEon 05-24-2022 CHOL-HDL RATIO NORM SEE BELOW Normal [facility] Comment on above: Result Comment: 3.3 - 4.4 LOW RISK 4.4 - 7.1 AVERAGE RISK 7.1 - 11.0 MODERATE RISK >11.0 HIGH RISK Performed By: #### L IPID #### [facility] [address] [place] [address] Dr. Stu Sequeira Cholesterol [Mass/Vol] 111 mg/dL Normal <=200 [facility] Comment on above: Performed By: #### L IPID #### [facility] [address] [place] [address] Dr. Stu Sequeira Cholesterol in HDL [Mass/Vol] 46 mg/dL Normal 40-60 [facility] Comment on above: Performed By: #### L IPID #### [facility] [address] [address] [address] Stu Sequeira Cholesterol in LDL [Mass/Vol] 47.0 mg/dL Normal [facility] Comment on above: Performed By: #### L IPID #### [facility] [address] [place] [address] Dr. Stu Sequeira Cholesterol.total /Cholesterol in HDL [Mass ratio] 2.4 {ratio} Normal [facility] Comment on above: Performed By: #### L IPID #### [facility] [address] [place] [address] Dr. Stu Sequeira HDL NORMAL > or = 60 mg/dl - LO W CARDIOVASCULAR RISK <40 mg/dl - HIGH CARDIOVASCULAR RISK Normal [facility] Comment on above: Performed By: #### L IPID #### [facility] [address] [place] [address] Dr. Stu Sequeira LDL CALC NORMAL SEE BELOW Normal [facility] Comment on above: Result Comment: <100 mg/dl OPTIMAL 100 - 129 mg/dl NEAR OR ABOVE OPTIMAL 130 - 159 mg/dl BORDERLINE HIGH 160 - 189 mg/dl HIGH >190 mg/dl VERY HIGH Performed By: #### L IPID #### [facility] [address] [place] [address] Dr. Stu Sequeira Triglyceride [Mass/Vol] 90 mg/dL Normal <=150 [facility] Comment on above: Performed By: #### L IPID #### [facility] [address] [place] [address] Dr. Stu Sequeira VLDL CALC 18.0 mg/dL Normal [facility] Comment on above: Performed By: #### L IPID #### [facility] [address] [place] [address] Dr. Stu Sequeira PTH INTACTon 11-20-2021 PTH, Intact 38 pg/mL Normal 15-65 [facility] Comment on above: Performed By: #### U RTPCR #### [facility] [address] [place] [address] Dr. Stu Sequeira HEMOGRAM AND PLATELon 2021 Hematocrit (Bld) [Volume fraction] 43.5 % Normal 42.0-54.0 [facility] Comment on above: Performed By: #### U RTPCR #### [facility] [address] [place] [address] Dr. Stu Sequeira Hemoglobin (Bld) [Mass/Vol] 14.5 g/dL Normal 14.0-18.0 [facility] Comment on above: Performed By: #### U RTPCR #### [facility] [address] [place] [address] Dr. Stu Sequeira MCH (RBC) [Entitic mass] 31.2 pg Normal 25.9-34.0 [facility] Comment on above: Performed By: #### U RTPCR #### [facility] [address] [place] [address] Dr. Stu Sequeira MCHC (RBC) [Mass/Vol] 33.3 g/dL Normal 29.9-35.2 [facility] Comment on above: Performed By: #### U RTPCR #### [facility] [address] [place] [address] Dr. Stu Sequeira MCV (RBC) [Entitic vol] 93.5 fL Normal 80.0-94.0 [facility] Comment on above: Performed By: #### U RTPCR #### [facility] [address] [place] [address] Dr. Stu Sequeira PLT 259 103/ul Normal 150-450 [facility] Comment on above: Performed By: #### U RTPCR #### [facility] [address] [place] [address] Dr. Stu Sequeira RBC 4.65 106/ul Critically low 4.70-6.10 [facility] Comment on above: Performed By: #### U RTPCR #### [facility] [address] [address] [address] Stu Sequeira WBC 9.9 103/ul Normal 4.0-11.0 [facility] Comment on above: Performed By: #### U RTPCR #### [facility] [address] [address] [address] Stu Sequeira MAGNESIUMon 11-17-2021 Magnesium [Mass/Vol] 2.0 mg/dL Normal 1.8-2.4 [facility] Comment on above: Performed By: #### U RTPCR #### [facility] [address] [address] [address] Stu Sequeira RENAL FUNCTION PANELon 11-17 Albumin [Mass/Vol] 3.5 g/dL Normal 3.4-5.0 [facility] Comment on above: Performed By: #### U RTPCR #### [facility] [address] [place] [address] Dr. Stu Sequeira Calcium [Mass/Vol] 8.8 mg/dL Normal 8.5-10.1 [facility] Comment on above: Performed By: #### U RTPCR #### [facility] [address] [place] [address] Dr. Stu Sequeira Chloride [Moles/Vol] 105 mmol/L Normal 98-107 [facility] Comment on above: Performed By: #### U RTPCR #### [facility] [address] [place] [address] Dr. Stu Sequeira CO2 [Moles/Vol] 28.4 mmol/L Normal 21.0-32.0 [facility] Comment on above: Performed By: #### U RTPCR #### [facility] [address] [address] [address] Stu Sequeira Creatinine [Mass/Vol] 1.69 mg/dL Critically high 0.70-1.30 [facility] Comment on above: Performed By: #### U RTPCR #### [facility] [address] [place] [address] Dr. Stu Sequeira EGFR-AF GIBRALTARIAN 49 mL/min/1.73m2 Critically low >=60 [facility] Comment on above: Performed By: #### U RTPCR #### [facility] [address] [address] [address] Stu Sequeira EGFR-NON AF GIBRALTARIAN 40 mL/min/1.73m2 Critically low >=60 [facility] Comment on above: Performed By: #### U RTPCR #### [facility] [address] [address] [address] Stu Sequeira Glucose [Mass/Vol] 120 mg/dL Critically high 74-106 [facility] Comment on above: Performed By: #### U RTPCR #### [facility] [address] [address] [address] Stu Sequeira Phosphate [Mass/Vol] 3.7 mg/dL Normal 2.6-4.7 [facility] Comment on above: Performed By: #### U RTPCR #### [facility] [address] [address] [address] Stu Sequeira Potassium [Moles/Vol] 5.0 mmol/L Normal 3.5-5.1 [facility] Comment on above: Performed By: #### U RTPCR #### [facility] [address] [address] [address] Stu Sequeira Sodium [Moles/Vol] 139 mmol/L Normal 136-145 [facility] Comment on above: Performed By: #### U RTPCR #### [facility] [facility] [address] [address] [address] Stu Sequeira Urea nitrogen [Mass/Vol] 21.0 mg/dL Critically high 7.0-18.0 [facility] Comment on above: Performed By: #### U RTPCR #### [facility] [address] [address] [address] Stu Sequeira UA RANDOM W/MICROSCOPICon BACTERIA NONE SEEN Normal NONE SEEN [facility] Comment on above: Performed By: #### U AMIC #### [facility] [address] [address] [address] Stu Sequeira Bilirubin Ql (U) Negative Normal NEGATIVE [facility] Comment on above: Performed By: #### U AMIC #### [facility] [address] [address] [address] Stu Sequeira CAST NONE SEEN Normal NONE SEEN [facility] Comment on above: Performed By: #### U AMIC #### [facility] [address] [address] [address] Stu Sequeira Clarity (U) SL CLOUDY Abnormal CLEAR [facility] Comment on above: Performed By: #### U AMIC #### [facility] [address] [address] [address] Stu Sequeira Color (U) LT. YELLOW Normal YELLOW [facility] Comment on above: Performed By: #### U AMIC #### [facility] [address] [place] [address] Dr. Stu Sequeira Crystals LM Nom (Urine sed) NONE SEEN Normal NONE SEEN [facility] Comment on above: Performed By: #### U AMIC #### [facility] [address] [address] [address] Stu Sequeira Epithelial cells LM Ql (Urine sed) RARE Normal NONE SEEN /RARE [facility] Comment on above: Performed By: #### U AMIC #### [facility] [address] [place] [address] Dr. Stu Sequeira Glucose Ql (U) Negative Normal NEGATIVE [facility] Comment on above: Performed By: #### U AMIC #### [facility] [address] [address] [address] Stu Sequeira Hemoglobin Ql (U) Negative Normal NEGATIVE [facility] Comment on above: Performed By: #### U AMIC #### [facility] [address] [address] [address] Stu Sequeira Ketones Ql (U) Negative Normal NEGATIVE [facility] Comment on above: Performed By: #### U AMIC #### [facility] [address] [place] [address] Dr. Stu Sequeira LEUKOCYTES Negative Normal NEGATIVE [facility] Comment on above: Performed By: #### U AMIC #### [facility] [address] [address] [address] Stu Sequeira MUCOUS NONE SEEN Normal NONE SEEN [facility] Comment on above: Performed By: #### U AMIC #### [facility] [address] [place] [address] Dr. Stu Sequeira Nitrite Ql (U) Negative Normal NEGATIVE [facility] Comment on above: Performed By: #### U AMIC #### [facility] [address] [place] [address] Dr. Stu Sequeira pH (U) 5.0 [pH] Normal 5-9 [facility] Comment on above: Performed By: #### U AMIC #### [facility] [address] [place] [address] Dr. Stu Sequeira RBC 0-2 Normal 0-2 [facility] Comment on above: Performed By: #### U AMIC #### [facility] [address] [place] [address] Dr. Stu Sequeira SPEC GRAVITY 1.025 Normal 1.005-<=1.02 5 [facility] Comment on above: Performed By: #### U AMIC #### [facility] [address] [place] [address] Dr. Stu Sequeira UA PROTEIN Negative Normal NEGATIVE/ TRACE [facility] Comment on above: Performed By: #### U AMIC #### [facility] [address] [place] [address] Dr. Stu Sequeira Urobilinogen Qn (U) 0.2 {Yared'U}/dL Normal 0.2 - 1.0 [facility] Comment on above: Performed By: #### U AMIC #### [facility] [address] [place] [address] Dr. Stu Sequeira WBC NONE SEEN Normal NONE SEEN [facility] Comment on above: Performed By: #### U AMIC #### [facility] [address] [place] [address] Dr. Stu Sequeira URIC ACID SERUMon 11-17-2021 Urate [Mass/Vol] 7.6 mg/dL Critically high 3.5-7.2 [facility] Comment on above: Performed By: #### U RTPCR #### [facility] [address] [place] [address] Dr. Stu Sequeira URINE T PROTEIN CREAT RATIOo n 11-17-2021 Protein (U) [Mass/Vol] 19.9 mg/dL Critically high <=12.0 [facility] Comment on above: Performed By: #### U RTPCR #### [facility] [address] [place] [address] Dr. Stu Sequeira UR PROT CREAT RAT 0.13 Normal [facility] Comment on above: Performed By: #### U RTPCR #### [facility] [address] [place] [address] Dr. Stu Sequeira URINE CREAT 151.49 mg/dL Normal 20.00-300.00 [facility] Comment on above: Performed By: #### U RTPCR #### [facility] [address] [place] [address] Dr. Stu Sequeira VITAMIN D 25 OHon 11-17-2021 VIT D 25-OH 52.3 ng/mL Normal [facility] Comment on above: Performed By: #### U RTPCR #### [facility] [address] [place] [address] Dr. Stu Sequeira VIT D RANGES SEE BELOW Normal [facility] Comment on above: Result Comment: <20 ng/mL Vit D deficient 20 - <30 ng/mL Vit D insufficient 30 - 100 ng/mL Vit D sufficient >100 ng/mL Potential Toxicity Performed By: #### U RTPCR #### [facility] [address] [place] [address] Dr. Stu Sequeira Patient Correspondenceon Patient Correspondence [id number]:127 Normal [facility] Patient Letter FTMCon 2020 [place] [facility] [place] Dear Mr. Don Elkins, I am corresponding to you [...] FACS [facility] OVIDIO VALENTIN, Tam Soto [facility] Basic Metabolic Panlon 12-20 Anion gap [Moles/Vol] 8 mmol/L Low 9-18 [facility] Calcium [Mass/Vol] 8.9 mg/dL Normal 8.5-10.2 [facility] Chloride [Moles/Vol] 103 mmol/L Normal 97-105 [facility] CO2 [Moles/Vol] 27 mmol/L Normal 22-30 [facility] Creatinine [Mass/Vol] 1.52 mg/dL High 0.73-1.22 [facility] eGFR- Amer. 55 Normal [facility] eGFR-All Other Races 46 . Normal [facility] Comment on above: Result Comment: eGFR (Estimated [...] GFR. Glucose [Mass/Vol] 238 mg/dL High 74-99 [facility] Comment on above: Result Comment: The [place] [employer] (ADA) provides guidance for cutoff [...] Standards of Medical Care in Diabetes 2016, [place] [employer]. Diabetes Care. 2016.39(Suppl 1). Potassium [Moles/Vol] 4.6 mmol/L Normal 3.7-5.1 [facility] Sodium [Moles/Vol] 138 mmol/L Normal 136-144 [facility] Urea nitrogen [Mass/Vol] 19 mg/dL Normal 9-24 [facility] CNOVSPon 12-20-2020 CNOVSP Visit (SP) Office (H EMASA) DON ELKINS ([id number]) 1950 M Date Time Provider Department 12/20/20 2:15 PM CLAUDIO PARKER During your visit today, we recorded the following information about you: Temperature Pulse Respiration Blood pressure 97.7 degrees 81/minute 16/minute 136/63 Weight Height 112.9 kg 1.727 m Claudio Parker MD 12/21/2020 12:37 PM Signed PATIENT NAME: Don Elkins DATE: 12/20/2020 PRIMARY CARE PHYSICIAN: Dr. Sal Sabillon/Marj Demarco, BUTTERMILK DRIER OPERATOR OTHER PHYSICIANS: Dr. Wilson, Dr. Cortez, Dr. Arvizu ([facility] Neurology) Portions of this encounter note have [...] HISTORY: PAST MEDICAL HISTORY Diagnosis Date - Ontario's disease (HCC) - Coronary arteriosclerosis - DVT (deep venous thrombosis) (HCC) - Hepatitis B - HTN (hypertension) - Hyperthyroidism - AKASH (obstructive sleep apnea) - Prostate cancer (HCC) - Pulmonary embolism (HCC) PAST SURGICAL HISTORY: PAST SURGICAL HISTORY Procedure Laterality Date - APPENDECTOMY - CARPAL TUNNEL Bilateral - COLONOSCOP W/ OR W/O [facility] SPEC Colonoscopy - CORONARY ARTERY BYPASS GRAFT HX 03/19/2018 - LEFT HEART CATH,PERCUTANEOUS 03/15/2018 - PAST SURGICAL HISTORY OF Prostate removed - PAST SURGICAL HISTORY OF Cyst r (more content not included)... Normal [facility] Remote CBCDIF (for [facility] use o nly)on 12-20-2020 Abs Baso 0.08 k/uL Normal <0.11 [facility] Abs Bolivar 0.55 k/uL Normal <0.87 [facility] Abs Neut 5.06 k/uL Normal 1.45-7.50 [facility] Absolute nRBC <0.01 Normal <0.01 [facility] Basophils/100 WBC (Bld) 1.0 % Normal [facility] DTYPE Auto Diff Normal [facility] Eosinophils (Bld) [#/Vol] 0.26 10*3/uL Normal <0.46 [facility] Eosinophils/100 WBC (Bld) 3.3 % Normal [facility] Erythrocyte distribution width (RBC) [Ratio] 12.2 % Normal 11.5-15.0 [facility] Hematocrit (Bld) [Volume fraction] 37.0 % Low 39.0-51.0 [facility] Hemoglobin (Bld) [Mass/Vol] 12.7 g/dL Low 13.0-17.0 [facility] Lymphocytes (Bld) [#/Vol] 1.86 10*3/uL Normal 1.00-4.00 [facility] Lymphocytes/100 WBC (Bld) 23.8 % Normal [facility] MCH 30.7 pG Normal 26.0-34.0 [facility] MCHC (RBC) [Mass/Vol] 34.3 g/dL Normal 30.5-36.0 [facility] MCV (RBC) [Entitic vol] 89.4 fL Normal 80.0-100.0 [facility] Monocytes/100 WBC (Bld) 7.0 % Normal [facility] Neutrophils/100 WBC (Bld) 64.9 % Normal [facility] NRBCs 0.0 /100 WBC Normal 0 [facility] Platelet mean volume (Bld) [Entitic vol] 11.9 fL Normal 9.0-12.7 [facility] Platelets (Bld) [#/Vol] 207 10*3/uL Normal 150-400 [facility] RBC (Bld) [#/Vol] 4.14 10*6/uL Low 4.20-6.00 [facility] WBC (Bld) [#/Vol] 7.81 10*3/uL Normal 3.70-11.00 [facility] CNPNon 12-19-2020 CNPN Telephone (HEMASA) DON ELKINS ([id number]) 1950 M Date Time Provider Department 12/19/20 CLAUDIO PARKER During your visit today, we recorded the following information about you: Marianna Haque RN 12/19/2020 2:08 PM Signed Orders for CBC, CMP, and Prothrombin Gene Mutation pended. Please review and approve. 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 Wilson, Dr. Cortez, Dr. Arvizu ([facility] Neurology) HPI: This is a 70 year [...] thrombosis) (HCC) (more content not included)... Normal [facility] Consent for Procedure/Surger yon 11-15-2020 Consent for Procedure/Surgery [id number]:127 Normal [facility] Ambulatory Clinical Summaryo n 11-14-2020 Ambulatory Clinical Summary {[id number] Normal [facility] Ambulatory Clinical Summary {[id number] Normal [facility] Gastroenterology Office/Clin ic Noteon 11-14-2020 Gastroenterology Office/Clinic Note Chief Complaint self ref- diarrhea HPI Staff This is a 70 year old male who presents today for a self referral for diarrhea. History of Present Illness The patient or their guardian verbally consented to allow Madeline Ada Collnis to record this visit. The 70-year-old white male presents today for dysphagia and diarrhea. He was evaluated by Dr. Stone Arboleda in 2014 for dysphagia and history of colon polyps. He proceeded with an EGD and esophageal motility testing and was diagnosed with achalasia. The patient was referred to [facility], but he states he was not [...] Achalasia of cardia) This was diagnosed in [address] Arboleda. He was referred to [facility] at that time, but pneumatic dilation was not done or recommended by [facility] as, according to the patient, they were concerned about possible perforation. The patient continued to have sporadic dysphagia. I will repeat an EGD for re-evaluation. 5. Small intestinal bacterial overgrowth (SIBO) (K63.89: Other specified diseases of intestine) The patient will start probiotics and antibiotics. ATTESTATION: Documentation services were performed by SOTO after patient consented to recording for virtual a r specialist and provider reviewed before signing. SOTO: Marcelina Lai Follow-up With When Contact Information JANICE VALENTIN, BHARGAVI Braun MED Within 2 weeks [facility] [place] [address]- Additional Instructions: Patient Education Chronic Diarrhea Problem List/Past Medical History Ongoing Brigida disease BMI 35.0-35.9,adult Diabetes Frequency GERD Hematuria Hx of chcf use of blood thinners Hypertension Kidney stone Microscopic hematuria- with sy (more content not included)... Normal [facility] Comment on above: Result Comment: Elec [...] and water are not available, use hand rubber washer. ? Make sure that all people in your household wash their hands well and often. ? Take zvyw-pbb-orwluee and prescription medicines only as told by [...] and water are not available, use hand rubber washer. ? It is important that you treat your diarrhea as told by your health care provider. This information is not intended to replace advice given to you by your health care provider. Make sure you discuss any questions you have with your health care provider. Document Released: 07/25/2004 Document Revised: 07/31/2018 Document Reviewed: 03/24/2017 [employer] Patient Education ? 2019 [employer] Normal [facility] Complete Blood Count Auto Di ffon 09-16-2020 Basophils (Bld) [#/Vol] 0.1 10*3/uL Normal 0.0-0.2 [facility] Comment on above: Result Comment: PERF ORMED BY: [place] [address] PATHOLOGIST CHIEF SCIENCE OFFICER TOBY GRACIA M.D. Performed By: #### B 2 GLYPROT XOCHITL, FACTOR II DNA, HOMOCYS PL, FACV LEIDM, PROCF, LIPA, LUPANTCOAG, PROT S FUN, METH, CARDIO GMA, AT3 DEF PROFILE #### [facility] , #### [id number], CBC, PHOS, BMP, FE PRO, MG #### [place] [address] [place] Basophils/100 WBC (Bld) 0.8 % Normal . [facility] Comment on above: Performed By: #### B 2 GLYPROT XOCHITL, FACTOR II DNA, HOMOCYS PL, FACV LEIDM, PROCF, LIPA, LUPANTCOAG, PROT S FUN, METH, CARDIO GMA, AT3 DEF PROFILE #### [facility] , #### [id number], CBC, PHOS, BMP, FE PRO, MG #### [facility] [address] [place] [address] [place] Eosinophils (Bld) [#/Vol] 0.3 10*3/uL Normal 0.0-0.45 [facility] Comment on above: Performed By: #### B 2 GLYPROT XOCHITL, FACTOR II DNA, HOMOCYS PL, FACV LEIDM, PROCF, LIPA, LUPANTCOAG, PROT S FUN, METH, CARDIO GMA, AT3 DEF PROFILE #### [facility] , #### [id number], CBC, PHOS, BMP, FE PRO, MG #### [place] [address] [place] Eosinophils/100 WBC (Bld) 3.3 % Normal . [facility] Comment on above: Performed By: #### B 2 GLYPROT XOCHITL, FACTOR II DNA, HOMOCYS PL, FACV LEIDM, PROCF, LIPA, LUPANTCOAG, PROT S FUN, METH, CARDIO GMA, AT3 DEF PROFILE #### [facility] , #### [id number], CBC, PHOS, BMP, FE PRO, MG #### [address] Erythrocyte distribution width (RBC) [Ratio] 13.2 % Normal 12.0-14.8 [facility] Comment on above: Performed By: #### B 2 GLYPROT XOCHITL, FACTOR II DNA, HOMOCYS PL, FACV LEIDM, PROCF, LIPA, LUPANTCOAG, PROT S FUN, METH, CARDIO GMA, AT3 DEF PROFILE #### [facility] , #### [id number], CBC, PHOS, BMP, FE PRO, MG #### [address] Hematocrit (Bld) [Volume fraction] 36.9 % Low 38.8-50.0 [facility] Comment on above: Performed By: #### B 2 GLYPROT XOCHITL, FACTOR II DNA, HOMOCYS PL, FACV LEIDM, PROCF, LIPA, LUPANTCOAG, PROT S FUN, METH, CARDIO GMA, AT3 DEF PROFILE #### [facility] , #### [id number], CBC, PHOS, BMP, FE PRO, MG #### [address] Hemoglobin (Bld) [Mass/Vol] 12.5 g/dL Low 13.0-17.0 [facility] Comment on above: Performed By: #### B 2 GLYPROT XOCHITL, FACTOR II DNA, HOMOCYS PL, FACV LEIDM, PROCF, LIPA, LUPANTCOAG, PROT S FUN, METH, CARDIO GMA, AT3 DEF PROFILE #### [facility] , #### [id number], CBC, PHOS, BMP, FE PRO, MG #### [facility] [address] Lymphocytes (Bld) [#/Vol] 2.3 10*3/uL Normal 1.00-4.8 [facility] Comment on above: Performed By: #### B 2 GLYPROT XOCHITL, FACTOR II DNA, HOMOCYS PL, FACV LEIDM, PROCF, LIPA, LUPANTCOAG, PROT S FUN, METH, CARDIO GMA, AT3 DEF PROFILE #### [facility] , #### [id number], CBC, PHOS, BMP, FE PRO, MG #### [address] Lymphocytes/100 WBC (Bld) 24.6 % Normal . [facility] Comment on above: Performed By: #### B 2 GLYPROT XOCHITL, FACTOR II DNA, HOMOCYS PL, FACV LEIDM, PROCF, LIPA, LUPANTCOAG, PROT S FUN, METH, CARDIO GMA, AT3 DEF PROFILE #### [facility] , #### [id number], CBC, PHOS, BMP, FE PRO, MG #### [address] MCH (RBC) [Entitic mass] 30.7 pg Normal 27.5-35.2 [facility] Comment on above: Performed By: #### B 2 GLYPROT XOCHITL, FACTOR II DNA, HOMOCYS PL, FACV LEIDM, PROCF, LIPA, LUPANTCOAG, PROT S FUN, METH, CARDIO GMA, AT3 DEF PROFILE #### [facility] , #### [id number], CBC, PHOS, BMP, FE PRO, MG #### [address] MCV (RBC) [Entitic vol] 90.7 fL Normal 83.5-101 [facility] Comment on above: Performed By: #### B 2 GLYPROT XOCHITL, FACTOR II DNA, HOMOCYS PL, FACV LEIDM, PROCF, LIPA, LUPANTCOAG, PROT S FUN, METH, CARDIO GMA, AT3 DEF PROFILE #### [facility] , #### [id number], CBC, PHOS, BMP, FE PRO, MG #### [address] Mean Corpuscular HGB Conc 33.8 g/dL Normal 32.5-35.6 [facility] Comment on above: Performed By: #### B 2 GLYPROT XOCHITL, FACTOR II DNA, HOMOCYS PL, FACV LEIDM, PROCF, LIPA, LUPANTCOAG, PROT S FUN, METH, CARDIO GMA, AT3 DEF PROFILE #### [facility] , #### [id number], CBC, PHOS, BMP, FE PRO, MG #### [address] Monocytes (Bld) [#/Vol] 0.7 10*3/uL Normal 0.0-0.8 [facility] Comment on above: Performed By: #### B 2 GLYPROT XOCHITL, FACTOR II DNA, HOMOCYS PL, FACV LEIDM, PROCF, LIPA, LUPANTCOAG, PROT S FUN, METH, CARDIO GMA, AT3 DEF PROFILE #### [facility] , #### [id number], CBC, PHOS, BMP, FE PRO, MG #### [address] Monocytes/100 WBC (Bld) 7.1 % Normal . [facility] Comment on above: Performed By: #### B 2 GLYPROT XOCHITL, FACTOR II DNA, HOMOCYS PL, FACV LEIDM, PROCF, LIPA, LUPANTCOAG, PROT S FUN, METH, CARDIO GMA, AT3 DEF PROFILE #### [facility] , #### [id number], CBC, PHOS, BMP, FE PRO, MG #### [address] Neutrophils (Bld) [#/Vol] 6.0 10*3/uL Normal 1.8-7.7 [facility] Comment on above: Performed By: #### B 2 GLYPROT XOCHITL, FACTOR II DNA, HOMOCYS PL, FACV LEIDM, PROCF, LIPA, LUPANTCOAG, PROT S FUN, METH, CARDIO GMA, AT3 DEF PROFILE #### [facility] , #### [id number], CBC, PHOS, BMP, FE PRO, MG #### [address] Neutrophils/100 WBC (Bld) 64.2 % Normal . [facility] Comment on above: Performed By: #### B 2 GLYPROT XOCHITL, FACTOR II DNA, HOMOCYS PL, FACV LEIDM, PROCF, LIPA, LUPANTCOAG, PROT S FUN, METH, CARDIO GMA, AT3 DEF PROFILE #### [facility] , #### [id number], CBC, PHOS, BMP, FE PRO, MG #### [address] Nucleated RBC/100 WBC (Bld) [Ratio] 0.3 % Normal 0-0.5 [facility] Comment on above: Performed By: #### B 2 GLYPROT XOCHITL, FACTOR II DNA, HOMOCYS PL, FACV LEIDM, PROCF, LIPA, LUPANTCOAG, PROT S FUN, METH, CARDIO GMA, AT3 DEF PROFILE #### [facility] , #### [id number], CBC, PHOS, BMP, FE PRO, MG #### [address] Platelet mean volume (Bld) [Entitic vol] 10.5 fL High 6.6-10.1 [facility] Comment on above: Performed By: #### B 2 GLYPROT XOCHITL, FACTOR II DNA, HOMOCYS PL, FACV LEIDM, PROCF, LIPA, LUPANTCOAG, PROT S FUN, METH, CARDIO GMA, AT3 DEF PROFILE #### [facility] , #### [id number], CBC, PHOS, BMP, FE PRO, MG #### [facility] [address] Platelets (Bld) [#/Vol] 232 10*3/uL Normal 150-450 [facility] Comment on above: Performed By: #### B 2 GLYPROT XOCHITL, FACTOR II DNA, HOMOCYS PL, FACV LEIDM, PROCF, LIPA, LUPANTCOAG, PROT S FUN, METH, CARDIO GMA, AT3 DEF PROFILE #### [facility] , #### [id number], CBC, PHOS, BMP, FE PRO, MG #### [facility] [address] [place] [address] RBC (Bld) [#/Vol] 4.07 10*6/uL Normal 3.90-5.60 [facility] Comment on above: Performed By: #### B 2 GLYPROT XOCHITL, FACTOR II DNA, HOMOCYS PL, FACV LEIDM, PROCF, LIPA, LUPANTCOAG, PROT S FUN, METH, CARDIO GMA, AT3 DEF PROFILE #### [facility] , #### [id number], CBC, PHOS, BMP, FE PRO, MG #### [facility] [address] [place] [address] WBC (Bld) [#/Vol] 9.4 10*3/uL Normal 4.5-11.0 [facility] Comment on above: Performed By: #### B 2 GLYPROT XOCHITL, FACTOR II DNA, HOMOCYS PL, FACV LEIDM, PROCF, LIPA, LUPANTCOAG, PROT S FUN, METH, CARDIO GMA, AT3 DEF PROFILE #### [facility] , #### [id number], CBC, PHOS, BMP, FE PRO, MG #### [facility] [address] [place] [address] Comprehensive Metabolic Pane harmony 09-16-2020 Albumin [Mass/Vol] 2.9 g/dL Low 3.2-5.5 [facility] Comment on above: Performed By: #### B 2 GLYPROT XOCHITL, FACTOR II DNA, HOMOCYS PL, FACV LEIDM, PROCF, LIPA, LUPANTCOAG, PROT S FUN, METH, CARDIO GMA, AT3 DEF PROFILE #### [facility] , #### [id number], CBC, PHOS, BMP, FE PRO, MG #### [address] Albumin/Globulin [Mass ratio] 1.3 {ratio} Normal [facility] Comment on above: Performed By: #### B 2 GLYPROT XOCHITL, FACTOR II DNA, HOMOCYS PL, FACV LEIDM, PROCF, LIPA, LUPANTCOAG, PROT S FUN, METH, CARDIO GMA, AT3 DEF PROFILE #### [facility] , #### [id number], CBC, PHOS, BMP, FE PRO, MG #### [address] ALP [Catalytic activity/Vol] 39 U/L Normal 32-92 [facility] Comment on above: Performed By: #### B 2 GLYPROT XOCHITL, FACTOR II DNA, HOMOCYS PL, FACV LEIDM, PROCF, LIPA, LUPANTCOAG, PROT S FUN, METH, CARDIO GMA, AT3 DEF PROFILE #### [facility] , #### [id number], CBC, PHOS, BMP, FE PRO, MG #### [address] ALT [Catalytic activity/Vol] 71 U/L High 10-60 [facility] Comment on above: Performed By: #### B 2 GLYPROT XOCHITL, FACTOR II DNA, HOMOCYS PL, FACV LEIDM, PROCF, LIPA, LUPANTCOAG, PROT S FUN, METH, CARDIO GMA, AT3 DEF PROFILE #### [facility] , #### [id number], CBC, PHOS, BMP, FE PRO, MG #### [address] AST [Catalytic activity/Vol] 29 U/L Normal 10-42 [facility] Comment on above: Performed By: #### B 2 GLYPROT XOCHITL, FACTOR II DNA, HOMOCYS PL, FACV LEIDM, PROCF, LIPA, LUPANTCOAG, PROT S FUN, METH, CARDIO GMA, AT3 DEF PROFILE #### [facility] , #### [id number], CBC, PHOS, BMP, FE PRO, MG #### [address] Bilirubin [Mass/Vol] 1.2 mg/dL Normal 0.3-1.2 [facility] Comment on above: Performed By: #### B 2 GLYPROT XOCHITL, FACTOR II DNA, HOMOCYS PL, FACV LEIDM, PROCF, LIPA, LUPANTCOAG, PROT S FUN, METH, CARDIO GMA, AT3 DEF PROFILE #### [facility] , #### [id number], CBC, PHOS, BMP, FE PRO, MG #### [address] Calcium [Mass/Vol] 8.1 mg/dL Low 8.2-10.2 [facility] Comment on above: Performed By: #### B 2 GLYPROT XOCHITL, FACTOR II DNA, HOMOCYS PL, FACV LEIDM, PROCF, LIPA, LUPANTCOAG, PROT S FUN, METH, CARDIO GMA, AT3 DEF PROFILE #### [facility] , #### [id number], CBC, PHOS, BMP, FE PRO, MG #### [address] Chloride [Moles/Vol] 107 mmol/L Normal 95-114 [facility] Comment on above: Performed By: #### B 2 GLYPROT XOCHITL, FACTOR II DNA, HOMOCYS PL, FACV LEIDM, PROCF, LIPA, LUPANTCOAG, PROT S FUN, METH, CARDIO GMA, AT3 DEF PROFILE #### [facility] , #### [id number], CBC, PHOS, BMP, FE PRO, MG #### [facility] [address] [place] [address] CO2 [Moles/Vol] 24.3 mmol/L Normal 22.0-30.0 [facility] Comment on above: Performed By: #### B 2 GLYPROT XOCHITL, FACTOR II DNA, HOMOCYS PL, FACV LEIDM, PROCF, LIPA, LUPANTCOAG, PROT S FUN, METH, CARDIO GMA, AT3 DEF PROFILE #### [facility] , #### [id number], CBC, PHOS, BMP, FE PRO, MG #### [facility] [address] [place] [address] Creatinine [Mass/Vol] 1.40 mg/dL High 0.64-1.27 [facility] Comment on above: Performed By: #### B 2 GLYPROT XOCHITL, FACTOR II DNA, HOMOCYS PL, FACV LEIDM, PROCF, LIPA, LUPANTCOAG, PROT S FUN, METH, CARDIO GMA, AT3 DEF PROFILE #### [facility] , #### [id number], CBC, PHOS, BMP, FE PRO, MG #### [facility] [address] [place] [address] Creatinine Clr Calc Pharmacy 59.28 [facility] Comment on above: Result Comment: PERF ORMED BY: [place] [address] PATHOLOGIST CHIEF SCIENCE OFFICER TOBY GRACIA M.D. Performed By: #### B 2 GLYPROT XOCHITL, FACTOR II DNA, HOMOCYS PL, FACV LEIDM, PROCF, LIPA, LUPANTCOAG, PROT S FUN, METH, CARDIO GMA, AT3 DEF PROFILE #### [facility] , #### [id number], CBC, PHOS, BMP, FE PRO, MG #### [facility] [address] [place] [address] Estimated GFR ( Gabriela > 60 Normal [facility] Comment on above: Result Comment: GFR estimated reference range: According to KDOQI guidelines, <60 ml/min/1.73m2 is sufficient to diagnose a patient with chronic kidney disease. Performed By: #### B 2 GLYPROT XOCHITL, FACTOR II DNA, HOMOCYS PL, FACV LEIDM, PROCF, LIPA, LUPANTCOAG, PROT S FUN, METH, CARDIO GMA, AT3 DEF PROFILE #### [facility] , #### [id number], CBC, PHOS, BMP, FE PRO, MG #### [facility] [address] Estimated GFR (Non- Am 50 Normal [facility] Comment on above: Performed By: #### B 2 GLYPROT XOCHITL, FACTOR II DNA, HOMOCYS PL, FACV LEIDM, PROCF, LIPA, LUPANTCOAG, PROT S FUN, METH, CARDIO GMA, AT3 DEF PROFILE #### [facility] , #### [id number], CBC, PHOS, BMP, FE PRO, MG #### [facility] [address] Globulin (S) [Mass/Vol] 2.3 g/dL [facility] Comment on above: Performed By: #### B 2 GLYPROT XOCHITL, FACTOR II DNA, HOMOCYS PL, FACV LEIDM, PROCF, LIPA, LUPANTCOAG, PROT S FUN, METH, CARDIO GMA, AT3 DEF PROFILE #### [facility] , #### [id number], CBC, PHOS, BMP, FE PRO, MG #### [facility] [address] Glucose [Mass/Vol] 202 mg/dL High 70-100 [facility] Comment on above: Result Comment: Felch om Glucose Reference Range is dependent on [...] AT3 DEF PROFILE #### [facility] , #### [id number], CBC, PHOS, BMP, FE PRO, MG #### [address] Potassium [Moles/Vol] 4.5 mmol/L Normal 3.5-5.1 [facility] Comment on above: Performed By: #### B 2 GLYPROT XOCHITL, FACTOR II DNA, HOMOCYS PL, FACV LEIDM, PROCF, LIPA, LUPANTCOAG, PROT S FUN, METH, CARDIO GMA, AT3 DEF PROFILE #### [facility] , #### [id number], CBC, PHOS, BMP, FE PRO, MG #### [address] Protein [Mass/Vol] 5.2 g/dL Low 6.1-7.9 [facility] Comment on above: Performed By: #### B 2 GLYPROT XOCHITL, FACTOR II DNA, HOMOCYS PL, FACV LEIDM, PROCF, LIPA, LUPANTCOAG, PROT S FUN, METH, CARDIO GMA, AT3 DEF PROFILE #### [facility] , #### [id number], CBC, PHOS, BMP, FE PRO, MG #### [address] Sodium [Moles/Vol] 137 mmol/L Normal 136-146 [facility] Comment on above: Performed By: #### B 2 GLYPROT XOCHITL, FACTOR II DNA, HOMOCYS PL, FACV LEIDM, PROCF, LIPA, LUPANTCOAG, PROT S FUN, METH, CARDIO GMA, AT3 DEF PROFILE #### [facility] , #### [id number], CBC, PHOS, BMP, FE PRO, MG #### [address] Urea nitrogen [Mass/Vol] 15 mg/dL Normal 9-23 [facility] Comment on above: Performed By: #### B 2 GLYPROT XOCHITL, FACTOR II DNA, HOMOCYS PL, FACV LEIDM, PROCF, LIPA, LUPANTCOAG, PROT S FUN, METH, CARDIO GMA, AT3 DEF PROFILE #### [facility] , #### [id number], CBC, PHOS, BMP, FE PRO, MG #### [facility] [address] Glucose Poct Glucometerson 0 09-16-2020 Commemt1 Glu2: Cleaned Meter Normal [facility] Comment on above: Result Comment: PERF ORMED BY: [place] [address] PATHOLOGIST CHIEF SCIENCE OFFICER TOBY GRACIA M.D. Performed By: #### B 2 GLYPROT XOCHITL, FACTOR II DNA, HOMOCYS PL, FACV LEIDM, PROCF, LIPA, LUPANTCOAG, PROT S FUN, METH, CARDIO GMA, AT3 DEF PROFILE #### [facility] , #### [id number], CBC, PHOS, BMP, FE PRO, MG #### [facility] [address] [place] [address] Glucose [Mass/Vol] 184 mg/dL [facility] Comment on above: Result Comment: [facility] Glucose Reference Range is dependent on time and content of last meal. Glucose of more than 200 mg/dL in a nonstressed, ambulatory subject supports the diagnosis of Diabetes Mellitus. Performed By: #### B 2 GLYPROT XOCHITL, FACTOR II DNA, HOMOCYS PL, FACV LEIDM, PROCF, LIPA, LUPANTCOAG, PROT S FUN, METH, CARDIO GMA, AT3 DEF PROFILE #### [facility] , #### [id number], CBC, PHOS, BMP, FE PRO, MG #### [facility] [address] Blood Cultureon 09-15-2020 Bacteria identified Cx Nom (Bld) NO GROWTH 5 DAYS PERFORMED BY: [place] [address] PATHOLOGIST CHIEF SCIENCE OFFICER TOBY GRACIA M.D. Normal [facility] Comment on above: Performed By: #### B 2 GLYPROT XOCHITL, FACTOR II DNA, HOMOCYS PL, FACV LEIDM, PROCF, LIPA, LUPANTCOAG, PROT S FUN, METH, CARDIO GMA, AT3 DEF PROFILE #### [facility] , #### [id number], CBC, PHOS, BMP, FE PRO, MG #### [address] Complete Blood Count Auto Di ffon 09-15-2020 Basophils (Bld) [#/Vol] 0.1 10*3/uL Normal 0.0-0.2 [facility] Comment on above: Result Comment: PERF ORMED BY: [place] [address] PATHOLOGIST CHIEF SCIENCE OFFICER TOBY GRACIA M.D. Performed By: #### B 2 GLYPROT XOCHITL, FACTOR II DNA, HOMOCYS PL, FACV LEIDM, PROCF, LIPA, LUPANTCOAG, PROT S FUN, METH, CARDIO GMA, AT3 DEF PROFILE #### [facility] , #### [id number], CBC, PHOS, BMP, FE PRO, MG #### [address] Basophils/100 WBC (Bld) 0.7 % Normal . [facility] Comment on above: Performed By: #### B 2 GLYPROT XOCHITL, FACTOR II DNA, HOMOCYS PL, FACV LEIDM, PROCF, LIPA, LUPANTCOAG, PROT S FUN, METH, CARDIO GMA, AT3 DEF PROFILE #### [facility] , #### [id number], CBC, PHOS, BMP, FE PRO, MG #### [place] [address] [place] Eosinophils (Bld) [#/Vol] 0.0 10*3/uL Normal 0.0-0.45 [facility] Comment on above: Performed By: #### B 2 GLYPROT XOCHITL, FACTOR II DNA, HOMOCYS PL, FACV LEIDM, PROCF, LIPA, LUPANTCOAG, PROT S FUN, METH, CARDIO GMA, AT3 DEF PROFILE #### [facility] , #### [id number], CBC, PHOS, BMP, FE PRO, MG #### [address] Eosinophils/100 WBC (Bld) 0.2 % Normal . [facility] Comment on above: Performed By: #### B 2 GLYPROT XOCHITL, FACTOR II DNA, HOMOCYS PL, FACV LEIDM, PROCF, LIPA, LUPANTCOAG, PROT S FUN, METH, CARDIO GMA, AT3 DEF PROFILE #### [facility] , #### [id number], CBC, PHOS, BMP, FE PRO, MG #### [address] Erythrocyte distribution width (RBC) [Ratio] 13.2 % Normal 12.0-14.8 [facility] Comment on above: Performed By: #### B 2 GLYPROT XOCHITL, FACTOR II DNA, HOMOCYS PL, FACV LEIDM, PROCF, LIPA, LUPANTCOAG, PROT S FUN, METH, CARDIO GMA, AT3 DEF PROFILE #### [facility] , #### [id number], CBC, PHOS, BMP, FE PRO, MG #### [address] Hematocrit (Bld) [Volume fraction] 37.0 % Low 38.8-50.0 [facility] Comment on above: Performed By: #### B 2 GLYPROT XOCHITL, FACTOR II DNA, HOMOCYS PL, FACV LEIDM, PROCF, LIPA, LUPANTCOAG, PROT S FUN, METH, CARDIO GMA, AT3 DEF PROFILE #### [facility] , #### [id number], CBC, PHOS, BMP, FE PRO, MG #### [address] [place] [address] [place] Hemoglobin (Bld) [Mass/Vol] 12.8 g/dL Low 13.0-17.0 [facility] Comment on above: Performed By: #### B 2 GLYPROT XOCHITL, FACTOR II DNA, HOMOCYS PL, FACV LEIDM, PROCF, LIPA, LUPANTCOAG, PROT S FUN, METH, CARDIO GMA, AT3 DEF PROFILE #### [facility] , #### [id number], CBC, PHOS, BMP, FE PRO, MG #### [address] Lymphocytes (Bld) [#/Vol] 1.3 10*3/uL Normal 1.00-4.8 [facility] Comment on above: Performed By: #### B 2 GLYPROT XOCHITL, FACTOR II DNA, HOMOCYS PL, FACV LEIDM, PROCF, LIPA, LUPANTCOAG, PROT S FUN, METH, CARDIO GMA, AT3 DEF PROFILE #### [facility] , #### [id number], CBC, PHOS, BMP, FE PRO, MG #### [address] Lymphocytes/100 WBC (Bld) 10.6 % Normal . [facility] Comment on above: Performed By: #### B 2 GLYPROT XOCHITL, FACTOR II DNA, HOMOCYS PL, FACV LEIDM, PROCF, LIPA, LUPANTCOAG, PROT S FUN, METH, CARDIO GMA, AT3 DEF PROFILE #### [facility] , #### [id number], CBC, PHOS, BMP, FE PRO, MG #### [address] MCH (RBC) [Entitic mass] 31.8 pg Normal 27.5-35.2 [facility] Comment on above: Performed By: #### B 2 GLYPROT XOCHITL, FACTOR II DNA, HOMOCYS PL, FACV LEIDM, PROCF, LIPA, LUPANTCOAG, PROT S FUN, METH, CARDIO GMA, AT3 DEF PROFILE #### [facility] , #### [id number], CBC, PHOS, BMP, FE PRO, MG #### [address] MCV (RBC) [Entitic vol] 91.7 fL Normal 83.5-101 [facility] Comment on above: Performed By: #### B 2 GLYPROT XOCHITL, FACTOR II DNA, HOMOCYS PL, FACV LEIDM, PROCF, LIPA, LUPANTCOAG, PROT S FUN, METH, CARDIO GMA, AT3 DEF PROFILE #### [facility] , #### [id number], CBC, PHOS, BMP, FE PRO, MG #### [address] Mean Corpuscular HGB Conc 34.7 g/dL Normal 32.5-35.6 [facility] Comment on above: Performed By: #### B 2 GLYPROT XOCHITL, FACTOR II DNA, HOMOCYS PL, FACV LEIDM, PROCF, LIPA, LUPANTCOAG, PROT S FUN, METH, CARDIO GMA, AT3 DEF PROFILE #### [facility] , #### [id number], CBC, PHOS, BMP, FE PRO, MG #### [address] Monocytes (Bld) [#/Vol] 0.7 10*3/uL Normal 0.0-0.8 [facility] Comment on above: Performed By: #### B 2 GLYPROT XOCHITL, FACTOR II DNA, HOMOCYS PL, FACV LEIDM, PROCF, LIPA, LUPANTCOAG, PROT S FUN, METH, CARDIO GMA, AT3 DEF PROFILE #### [facility] , #### [id number], CBC, PHOS, BMP, FE PRO, MG #### [address] Monocytes/100 WBC (Bld) 5.6 % Normal . [facility] Comment on above: Performed By: #### B 2 GLYPROT XOCHITL, FACTOR II DNA, HOMOCYS PL, FACV LEIDM, PROCF, LIPA, LUPANTCOAG, PROT S FUN, METH, CARDIO GMA, AT3 DEF PROFILE #### [facility] , #### [id number], CBC, PHOS, BMP, FE PRO, MG #### [facility] [address] Neutrophils (Bld) [#/Vol] 10.2 10*3/uL High 1.8-7.7 [facility] Comment on above: Performed By: #### B 2 GLYPROT XOCHITL, FACTOR II DNA, HOMOCYS PL, FACV LEIDM, PROCF, LIPA, LUPANTCOAG, PROT S FUN, METH, CARDIO GMA, AT3 DEF PROFILE #### [facility] , #### [id number], CBC, PHOS, BMP, FE PRO, MG #### [address] Neutrophils/100 WBC (Bld) 82.9 % Normal . [facility] Comment on above: Performed By: #### B 2 GLYPROT XOCHITL, FACTOR II DNA, HOMOCYS PL, FACV LEIDM, PROCF, LIPA, LUPANTCOAG, PROT S FUN, METH, CARDIO GMA, AT3 DEF PROFILE #### [facility] , #### [id number], CBC, PHOS, BMP, FE PRO, MG #### [address] Nucleated RBC/100 WBC (Bld) [Ratio] 0.1 % Normal 0-0.5 [facility] Comment on above: Performed By: #### B 2 GLYPROT XOCHITL, FACTOR II DNA, HOMOCYS PL, FACV LEIDM, PROCF, LIPA, LUPANTCOAG, PROT S FUN, METH, CARDIO GMA, AT3 DEF PROFILE #### [facility] , #### [id number], CBC, PHOS, BMP, FE PRO, MG #### [facility] [address] Platelet mean volume (Bld) [Entitic vol] 10.2 fL High 6.6-10.1 [facility] Comment on above: Performed By: #### B 2 GLYPROT XOCHITL, FACTOR II DNA, HOMOCYS PL, FACV LEIDM, PROCF, LIPA, LUPANTCOAG, PROT S FUN, METH, CARDIO GMA, AT3 DEF PROFILE #### [facility] , #### [id number], CBC, PHOS, BMP, FE PRO, MG #### [facility] [address] [place] [address] Platelets (Bld) [#/Vol] 251 10*3/uL Normal 150-450 [facility] Comment on above: Performed By: #### B 2 GLYPROT XOCHITL, FACTOR II DNA, HOMOCYS PL, FACV LEIDM, PROCF, LIPA, LUPANTCOAG, PROT S FUN, METH, CARDIO GMA, AT3 DEF PROFILE #### [facility] , #### [id number], CBC, PHOS, BMP, FE PRO, MG #### [facility] [address] [place] [address] RBC (Bld) [#/Vol] 4.04 10*6/uL Normal 3.90-5.60 [facility] Comment on above: Performed By: #### B 2 GLYPROT XOCHITL, FACTOR II DNA, HOMOCYS PL, FACV LEIDM, PROCF, LIPA, LUPANTCOAG, PROT S FUN, METH, CARDIO GMA, AT3 DEF PROFILE #### [facility] , #### [id number], CBC, PHOS, BMP, FE PRO, MG #### [facility] [address] [place] [address] WBC (Bld) [#/Vol] 12.3 10*3/uL High 4.5-11.0 [facility] Comment on above: Performed By: #### B 2 GLYPROT XOCHITL, FACTOR II DNA, HOMOCYS PL, FACV LEIDM, PROCF, LIPA, LUPANTCOAG, PROT S FUN, METH, CARDIO GMA, AT3 DEF PROFILE #### [facility] , #### [id number], CBC, PHOS, BMP, FE PRO, MG #### [facility] [address] [place] [address] Comprehensive Metabolic Pane harmony 09-15-2020 Albumin [Mass/Vol] 2.7 g/dL Low 3.2-5.5 [facility] Comment on above: Performed By: #### B 2 GLYPROT XOCHITL, FACTOR II DNA, HOMOCYS PL, FACV LEIDM, PROCF, LIPA, LUPANTCOAG, PROT S FUN, METH, CARDIO GMA, AT3 DEF PROFILE #### [facility] , #### [id number], CBC, PHOS, BMP, FE PRO, MG #### [address] Albumin/Globulin [Mass ratio] 1.2 {ratio} Normal [facility] Comment on above: Performed By: #### B 2 GLYPROT XOCHITL, FACTOR II DNA, HOMOCYS PL, FACV LEIDM, PROCF, LIPA, LUPANTCOAG, PROT S FUN, METH, CARDIO GMA, AT3 DEF PROFILE #### [facility] , #### [id number], CBC, PHOS, BMP, FE PRO, MG #### [address] ALP [Catalytic activity/Vol] 40 U/L Normal 32-92 [facility] Comment on above: Performed By: #### B 2 GLYPROT XOCHITL, FACTOR II DNA, HOMOCYS PL, FACV LEIDM, PROCF, LIPA, LUPANTCOAG, PROT S FUN, METH, CARDIO GMA, AT3 DEF PROFILE #### [facility] , #### [id number], CBC, PHOS, BMP, FE PRO, MG #### [address] ALT [Catalytic activity/Vol] 86 U/L High 10-60 [facility] Comment on above: Performed By: #### B 2 GLYPROT XOCHITL, FACTOR II DNA, HOMOCYS PL, FACV LEIDM, PROCF, LIPA, LUPANTCOAG, PROT S FUN, METH, CARDIO GMA, AT3 DEF PROFILE #### [facility] , #### [id number], CBC, PHOS, BMP, FE PRO, MG #### [address] AST [Catalytic activity/Vol] 28 U/L Normal 10-42 [facility] Comment on above: Performed By: #### B 2 GLYPROT XOCHITL, FACTOR II DNA, HOMOCYS PL, FACV LEIDM, PROCF, LIPA, LUPANTCOAG, PROT S FUN, METH, CARDIO GMA, AT3 DEF PROFILE #### [facility] , #### [id number], CBC, PHOS, BMP, FE PRO, MG #### [address] Bilirubin [Mass/Vol] 1.1 mg/dL Normal 0.3-1.2 [facility] Comment on above: Performed By: #### B 2 GLYPROT XOCHITL, FACTOR II DNA, HOMOCYS PL, FACV LEIDM, PROCF, LIPA, LUPANTCOAG, PROT S FUN, METH, CARDIO GMA, AT3 DEF PROFILE #### [facility] , #### [id number], CBC, PHOS, BMP, FE PRO, MG #### [address] Calcium [Mass/Vol] 7.6 mg/dL Low 8.2-10.2 [facility] Comment on above: Performed By: #### B 2 GLYPROT XOCHITL, FACTOR II DNA, HOMOCYS PL, FACV LEIDM, PROCF, LIPA, LUPANTCOAG, PROT S FUN, METH, CARDIO GMA, AT3 DEF PROFILE #### [facility] , #### [id number], CBC, PHOS, BMP, FE PRO, MG #### [facility] [address] Chloride [Moles/Vol] 106 mmol/L Normal 95-114 [facility] Comment on above: Performed By: #### B 2 GLYPROT XOCHITL, FACTOR II DNA, HOMOCYS PL, FACV LEIDM, PROCF, LIPA, LUPANTCOAG, PROT S FUN, METH, CARDIO GMA, AT3 DEF PROFILE #### [facility] , #### [id number], CBC, PHOS, BMP, FE PRO, MG #### [address] CO2 [Moles/Vol] 19.7 mmol/L Low 22.0-30.0 [facility] Comment on above: Performed By: #### B 2 GLYPROT XOCHITL, FACTOR II DNA, HOMOCYS PL, FACV LEIDM, PROCF, LIPA, LUPANTCOAG, PROT S FUN, METH, CARDIO GMA, AT3 DEF PROFILE #### [facility] , #### [id number], CBC, PHOS, BMP, FE PRO, MG #### [facility] [address] [place] [address] Creatinine [Mass/Vol] 1.95 mg/dL High 0.64-1.27 [facility] Comment on above: Performed By: #### B 2 GLYPROT XOCHITL, FACTOR II DNA, HOMOCYS PL, FACV LEIDM, PROCF, LIPA, LUPANTCOAG, PROT S FUN, METH, CARDIO GMA, AT3 DEF PROFILE #### [facility] , #### [id number], CBC, PHOS, BMP, FE PRO, MG #### [facility] [address] [place] [address] [place] Creatinine Clr Calc Pharmacy 42.44 Normal [facility] Comment on above: Performed By: #### B 2 GLYPROT XOCHITL, FACTOR II DNA, HOMOCYS PL, FACV LEIDM, PROCF, LIPA, LUPANTCOAG, PROT S FUN, METH, CARDIO GMA, AT3 DEF PROFILE #### [facility] , #### [id number], CBC, PHOS, BMP, FE PRO, MG #### [facility] [address] [place] [address] Estimated GFR ( Gabriela 41 [facility] Comment on above: Result Comment: GFR estimated reference range: According to KDOQI guidelines, <60 ml/min/1.73m2 is sufficient to diagnose a patient with chronic kidney disease. Performed By: #### B 2 GLYPROT XOCHITL, FACTOR II DNA, HOMOCYS PL, FACV LEIDM, PROCF, LIPA, LUPANTCOAG, PROT S FUN, METH, CARDIO GMA, AT3 DEF PROFILE #### [facility] , #### [id number], CBC, PHOS, BMP, FE PRO, MG #### [address] Estimated GFR (Non- Am 34 [facility] Comment on above: Performed By: #### B 2 GLYPROT XOCHITL, FACTOR II DNA, HOMOCYS PL, FACV LEIDM, PROCF, LIPA, LUPANTCOAG, PROT S FUN, METH, CARDIO GMA, AT3 DEF PROFILE #### [facility] , #### [id number], CBC, PHOS, BMP, FE PRO, MG #### [address] Globulin (S) [Mass/Vol] 2.3 g/dL [facility] Comment on above: Performed By: #### B 2 GLYPROT XOCHITL, FACTOR II DNA, HOMOCYS PL, FACV LEIDM, PROCF, LIPA, LUPANTCOAG, PROT S FUN, METH, CARDIO GMA, AT3 DEF PROFILE #### [facility] , #### [id number], CBC, PHOS, BMP, FE PRO, MG #### [address] Glucose [Mass/Vol] 301 mg/dL High 70-100 [facility] Comment on above: Result Comment: Felch om Glucose Reference Range is dependent on [...] AT3 DEF PROFILE #### [facility] , #### [id number], CBC, PHOS, BMP, FE PRO, MG #### [facility] [address] Potassium [Moles/Vol] 4.9 mmol/L Normal 3.5-5.1 [facility] Comment on above: Performed By: #### B 2 GLYPROT XOCHITL, FACTOR II DNA, HOMOCYS PL, FACV LEIDM, PROCF, LIPA, LUPANTCOAG, PROT S FUN, METH, CARDIO GMA, AT3 DEF PROFILE #### [facility] , #### [id number], CBC, PHOS, BMP, FE PRO, MG #### [facility] [address] Protein [Mass/Vol] 5.0 g/dL Low 6.1-7.9 [facility] Comment on above: Performed By: #### B 2 GLYPROT XOCHITL, FACTOR II DNA, HOMOCYS PL, FACV LEIDM, PROCF, LIPA, LUPANTCOAG, PROT S FUN, METH, CARDIO GMA, AT3 DEF PROFILE #### [facility] , #### [id number], CBC, PHOS, BMP, FE PRO, MG #### [facility] [address] Sodium [Moles/Vol] 134 mmol/L Low 136-146 [facility] Comment on above: Performed By: #### B 2 GLYPROT XOCHITL, FACTOR II DNA, HOMOCYS PL, FACV LEIDM, PROCF, LIPA, LUPANTCOAG, PROT S FUN, METH, CARDIO GMA, AT3 DEF PROFILE #### [facility] , #### [id number], CBC, PHOS, BMP, FE PRO, MG #### [facility] [address] Urea nitrogen [Mass/Vol] 22 mg/dL Normal 02-08 [facility] Comment on above: Performed By: #### B 2 GLYPROT XOCHITL, FACTOR II DNA, HOMOCYS PL, FACV LEIDM, PROCF, LIPA, LUPANTCOAG, PROT S FUN, METH, CARDIO GMA, AT3 DEF PROFILE #### [facility] , #### [id number], CBC, PHOS, BMP, FE PRO, MG #### [facility] [address] [place] [address] Glucose Poct Glucometerson 0 09-15-2020 Commemt1 Glu2: Cleaned Meter Normal [facility] Comment on above: Result Comment: PERF ORMED BY: [place] [address] PATHOLOGIST CHIEF SCIENCE OFFICER TOBY GRACIA M.D. Performed By: #### B 2 GLYPROT XOCHITL, FACTOR II DNA, HOMOCYS PL, FACV LEIDM, PROCF, LIPA, LUPANTCOAG, PROT S FUN, METH, CARDIO GMA, AT3 DEF PROFILE #### [facility] , #### [id number], CBC, PHOS, BMP, FE PRO, MG #### [facility] [address] [place] [address] Glucose [Mass/Vol] 245 mg/dL Normal [facility] Comment on above: Result Comment: Felch Glucose Reference Range is dependent on time and content of last meal. Glucose of more than 200 mg/dL in a nonstressed, ambulatory subject supports the diagnosis of Diabetes Mellitus. Performed By: #### B 2 GLYPROT XOCHITL, FACTOR II DNA, HOMOCYS PL, FACV LEIDM, PROCF, LIPA, LUPANTCOAG, PROT S FUN, METH, CARDIO GMA, AT3 DEF PROFILE #### [facility] , #### [id number], CBC, PHOS, BMP, FE PRO, MG #### [facility] [address] [place] [address] [place] Glucose [Mass/Vol] 243 mg/dL Normal [facility] Comment on above: Result Comment: [place] om Glucose Reference Range is dependent on time and content of last meal. Glucose of more than 200 mg/dL in a nonstressed, ambulatory subject supports the diagnosis of Diabetes Mellitus. PERFORMED BY: [place] [address] PATHOLOGIST [employer]IE[employer]ENCE [employer]ICER TOBY GRACIA M.D. Performed By: #### B 2 GLYPROT XOCHITL, FACTOR II DNA, HOMOCYS PL, FACV LEIDM, PROCF, LIPA, LUPANTCOAG, PROT S FUN, METH, CARDIO GMA, AT3 DEF PROFILE #### [facility] , #### [id number], CBC, PHOS, BMP, FE PRO, MG #### [place] [address] [place] Glucose [Mass/Vol] 253 mg/dL Normal [facility] Comment on above: Result Comment: [place] om Glucose Reference Range is dependent on time and content of last meal. Glucose of more than 200 mg/dL in a nonstressed, ambulatory subject supports the diagnosis of Diabetes Mellitus. PERFORMED BY: [place] [address] PATHOLOGIST CHIEF SCIENCE OFFICER TOBY GRACIA M.D. Performed By: #### B 2 GLYPROT XOCHITL, FACTOR II DNA, HOMOCYS PL, FACV LEIDM, PROCF, LIPA, LUPANTCOAG, PROT S FUN, METH, CARDIO GMA, AT3 DEF PROFILE #### [facility] , #### [id number], CBC, PHOS, BMP, FE PRO, MG #### [place] [address] [place] Glucose [Mass/Vol] 299 mg/dL Normal [facility] Comment on above: Result Comment: [place] om Glucose Reference Range is dependent on time and content of last meal. Glucose of more than 200 mg/dL in a nonstressed, ambulatory subject supports the diagnosis of Diabetes Mellitus. PERFORMED BY: [place] [address] PATHOLOGIST CHIEF SCIENCE OFFICER TOBY GRACIA M.D. Performed By: #### B 2 GLYPROT XOCHITL, FACTOR II DNA, HOMOCYS PL, FACV LEIDM, PROCF, LIPA, LUPANTCOAG, PROT S FUN, METH, CARDIO GMA, AT3 DEF PROFILE #### [facility] , #### [id number], CBC, PHOS, BMP, FE PRO, MG #### [facility] [address] [place], [place] [id number] [facility] Glucose [Mass/Vol] 234 mg/dL Normal [facility] Comment on above: Result Comment: [facility] [place] Glucose Reference Range is dependent on time and content of last meal. Glucose of more than 200 mg/dL in a nonstressed, ambulatory subject supports the diagnosis of Diabetes Mellitus. PERFORMED BY: [place] [address] PATHOLOGIST CHIEF SCIENCE OFFICER TOBY GRACIA M.D. Performed By: #### B 2 GLYPROT XOCHITL, FACTOR II DNA, HOMOCYS PL, FACV LEIDM, PROCF, LIPA, LUPANTCOAG, PROT S FUN, METH, CARDIO GMA, AT3 DEF PROFILE #### [facility] , #### [id number], CBC, PHOS, BMP, FE PRO, MG #### [facility] [address] [place] [address] Lactic Acid Reflexon 09-15-2 021 Lactic Acid Reflex 3.3 mmol/L Off scale high 0.5-2.2 [facility] Comment on above: Result Comment: Crit ical value result called at 2226 on 09/14/20 PERFORMED BY: [place] [address] PATHOLOGIST CHIEF SCIENCE OFFICER TOBY GRACIA M.D. Performed By: #### B 2 GLYPROT XOCHITL, FACTOR II DNA, HOMOCYS PL, FACV LEIDM, PROCF, LIPA, LUPANTCOAG, PROT S FUN, METH, CARDIO GMA, AT3 DEF PROFILE #### [facility] , #### [id number], CBC, PHOS, BMP, FE PRO, MG #### [facility] [address] Lactoferrin, Stool WBCon Lactoferrin, Stool WBC [...] Amplification Reference range = Negative PERFORMED BY: [place] [address] PATHOLOGIST CHIEF SCIENCE OFFICER TOBY GRACIA M.D. [facility] Comment on above: Performed By: #### B 2 GLYPROT XOCHITL, FACTOR II DNA, HOMOCYS PL, FACV LEIDM, PROCF, LIPA, LUPANTCOAG, PROT S FUN, METH, CARDIO GMA, AT3 DEF PROFILE #### [facility] , #### [id number], CBC, PHOS, BMP, FE PRO, MG #### [facility] [address] Magnesiumon 09-15-2020 Magnesium [Mass/Vol] 1.5 mg/dL Low 1.6-2.6 [facility] Comment on above: Result Comment: PERF ORMED BY: [place] [address] PATHOLOGIST CHIEF SCIENCE OFFICER TOBY GRACIA M.D. Performed By: #### B 2 GLYPROT XOCHITL, FACTOR II DNA, HOMOCYS PL, FACV LEIDM, PROCF, LIPA, LUPANTCOAG, PROT S FUN, METH, CARDIO GMA, AT3 DEF PROFILE #### [facility] , #### [id number], CBC, PHOS, BMP, FE PRO, MG #### [facility] [address] [place] [address] Urinalysison 09-15-2020 Appearance (U) Clear Normal Clear [facility] Comment on above: Order Comment: PT IS NON FASTING Performed By: #### B 2 GLYPROT XOCHITL, FACTOR II DNA, HOMOCYS PL, FACV LEIDM, PROCF, LIPA, LUPANTCOAG, PROT S FUN, METH, CARDIO GMA, AT3 DEF PROFILE #### [facility] , #### [id number], CBC, PHOS, BMP, FE PRO, MG #### [facility] [address] [place] [address] Bilirubin,Urine Negative Normal Negative [facility] Comment on above: Order Comment: PT IS NON FASTING Performed By: #### B 2 GLYPROT XOCHITL, FACTOR II DNA, HOMOCYS PL, FACV LEIDM, PROCF, LIPA, LUPANTCOAG, PROT S FUN, METH, CARDIO GMA, AT3 DEF PROFILE #### [facility] , #### [id number], CBC, PHOS, BMP, FE PRO, MG #### [facility] [address] [place] [address] Color (U) Yellow Normal Yellow [facility] Comment on above: Order Comment: PT IS NON FASTING Performed By: #### B 2 GLYPROT XOCHITL, FACTOR II DNA, HOMOCYS PL, FACV LEIDM, PROCF, LIPA, LUPANTCOAG, PROT S FUN, METH, CARDIO GMA, AT3 DEF PROFILE #### [facility] , #### [id number], CBC, PHOS, BMP, FE PRO, MG #### [facility] [address] [place] [address] Glucose Ql (U) 100 mg/dL High Normal [facility] Comment on above: Order Comment: PT IS NON FASTING Performed By: #### B 2 GLYPROT XOCHITL, FACTOR II DNA, HOMOCYS PL, FACV LEIDM, PROCF, LIPA, LUPANTCOAG, PROT S FUN, METH, CARDIO GMA, AT3 DEF PROFILE #### [facility] , #### [id number], CBC, PHOS, BMP, FE PRO, MG #### [facility] [address] [place] [address] Ketones Ql (U) Trace High Negative [facility] Comment on above: Order Comment: PT IS NON FASTING Performed By: #### B 2 GLYPROT XOCHITL, FACTOR II DNA, HOMOCYS PL, FACV LEIDM, PROCF, LIPA, LUPANTCOAG, PROT S FUN, METH, CARDIO GMA, AT3 DEF PROFILE #### [facility] , #### [id number], CBC, PHOS, BMP, FE PRO, MG #### [address] Leukocyte esterase Test strip Ql (U) Negative Normal Negative [facility] Comment on above: Order Comment: PT IS NON FASTING Performed By: #### B 2 GLYPROT XOCHITL, FACTOR II DNA, HOMOCYS PL, FACV LEIDM, PROCF, LIPA, LUPANTCOAG, PROT S FUN, METH, CARDIO GMA, AT3 DEF PROFILE #### [facility] , #### [id number], CBC, PHOS, BMP, FE PRO, MG #### [facility] [address] [place] [address] Nitrite,Urine Negative Normal Negative [facility] Comment on above: Order Comment: PT IS NON FASTING Performed By: #### B 2 GLYPROT XOCHITL, FACTOR II DNA, HOMOCYS PL, FACV LEIDM, PROCF, LIPA, LUPANTCOAG, PROT S FUN, METH, CARDIO GMA, AT3 DEF PROFILE #### [facility] , #### [id number], CBC, PHOS, BMP, FE PRO, MG #### [address] Occult Blood,Urine Negative Normal Negative [facility] Comment on above: Order Comment: PT IS NON FASTING Result Comment: PERF ORMED BY: [place] [address] PATHOLOGIST CHIEF SCIENCE OFFICER TOBY GRACIA M.D. Performed By: #### B 2 GLYPROT XOCHITL, FACTOR II DNA, HOMOCYS PL, FACV LEIDM, PROCF, LIPA, LUPANTCOAG, PROT S FUN, METH, CARDIO GMA, AT3 DEF PROFILE #### [facility] , #### [id number], CBC, PHOS, BMP, FE PRO, MG #### [address] pH (U) 5.0 [pH] Normal 5.0-9.0 [facility] Comment on above: Order Comment: PT IS NON FASTING Performed By: #### B 2 GLYPROT XOCHITL, FACTOR II DNA, HOMOCYS PL, FACV LEIDM, PROCF, LIPA, LUPANTCOAG, PROT S FUN, METH, CARDIO GMA, AT3 DEF PROFILE #### [facility] , #### [id number], CBC, PHOS, BMP, FE PRO, MG #### [place] [address] [place] Protein,Urine Negative Normal Negative [facility] Comment on above: Order Comment: PT IS NON FASTING Performed By: #### B 2 GLYPROT XOCHITL, FACTOR II DNA, HOMOCYS PL, FACV LEIDM, PROCF, LIPA, LUPANTCOAG, PROT S FUN, METH, CARDIO GMA, AT3 DEF PROFILE #### [facility] , #### [id number], CBC, PHOS, BMP, FE PRO, MG #### [address] Specificy [place],Urine 1.018 Normal 1.001-1.030 [facility] Comment on above: Order Comment: PT IS NON FASTING Performed By: #### B 2 GLYPROT XOCHITL, FACTOR II DNA, HOMOCYS PL, FACV LEIDM, PROCF, LIPA, LUPANTCOAG, PROT S FUN, METH, CARDIO GMA, AT3 DEF PROFILE #### [facility] , #### [id number], CBC, PHOS, BMP, FE PRO, MG #### [address] Urobilinogen,Urin e Normal Normal Normal [facility] Comment on above: Order Comment: PT IS NON FASTING Performed By: #### B 2 GLYPROT XOCHITL, FACTOR II DNA, HOMOCYS PL, FACV LEIDM, PROCF, LIPA, LUPANTCOAG, PROT S FUN, METH, CARDIO GMA, AT3 DEF PROFILE #### [facility] , #### [id number], CBC, PHOS, BMP, FE PRO, MG #### [address] Basic Metabolic Panelon 04-2 Calcium [Mass/Vol] 8.5 mg/dL Normal 8.2-10.2 [facility] Comment on above: Performed By: #### B 2 GLYPROT XOCHITL, FACTOR II DNA, HOMOCYS PL, FACV LEIDM, PROCF, LIPA, LUPANTCOAG, PROT S FUN, METH, CARDIO GMA, AT3 DEF PROFILE #### [facility] , #### [id number], CBC, PHOS, BMP, FE PRO, MG #### [facility] [address] [place] [address] Chloride [Moles/Vol] 99 mmol/L Normal 95-114 [facility] Comment on above: Performed By: #### B 2 GLYPROT XOCHITL, FACTOR II DNA, HOMOCYS PL, FACV LEIDM, PROCF, LIPA, LUPANTCOAG, PROT S FUN, METH, CARDIO GMA, AT3 DEF PROFILE #### [facility] , #### [id number], CBC, PHOS, BMP, FE PRO, MG #### [address] CO2 [Moles/Vol] 22.9 mmol/L Normal 22.0-30.0 [facility] Comment on above: Performed By: #### B 2 GLYPROT XOCHITL, FACTOR II DNA, HOMOCYS PL, FACV LEIDM, PROCF, LIPA, LUPANTCOAG, PROT S FUN, METH, CARDIO GMA, AT3 DEF PROFILE #### [facility] , #### [id number], CBC, PHOS, BMP, FE PRO, MG #### [address] Creatinine [Mass/Vol] 2.82 mg/dL High 0.64-1.27 [facility] Comment on above: Performed By: #### B 2 GLYPROT XOCHITL, FACTOR II DNA, HOMOCYS PL, FACV LEIDM, PROCF, LIPA, LUPANTCOAG, PROT S FUN, METH, CARDIO GMA, AT3 DEF PROFILE #### [facility] , #### [id number], CBC, PHOS, BMP, FE PRO, MG #### [address] Creatinine Clr Calc Pharmacy 28.93 [facility] Comment on above: Performed By: #### B 2 GLYPROT XOCHITL, FACTOR II DNA, HOMOCYS PL, FACV LEIDM, PROCF, LIPA, LUPANTCOAG, PROT S FUN, METH, CARDIO GMA, AT3 DEF PROFILE #### [facility] , #### [id number], CBC, PHOS, BMP, FE PRO, MG #### [address] Estimated GFR ( Gabriela 27 [facility] Comment on above: Result Comment: GFR estimated reference range: According to KDOQI guidelines, <60 ml/min/1.73m2 is sufficient to diagnose a patient with chronic kidney disease. Performed By: #### B 2 GLYPROT XOCHITL, FACTOR II DNA, HOMOCYS PL, FACV LEIDM, PROCF, LIPA, LUPANTCOAG, PROT S FUN, METH, CARDIO GMA, AT3 DEF PROFILE #### [facility] , #### [id number], CBC, PHOS, BMP, FE PRO, MG #### [facility] [address] Estimated GFR (Non- Am 22 Normal [facility] Comment on above: Performed By: #### B 2 GLYPROT XOCHITL, FACTOR II DNA, HOMOCYS PL, FACV LEIDM, PROCF, LIPA, LUPANTCOAG, PROT S FUN, METH, CARDIO GMA, AT3 DEF PROFILE #### [facility] , #### [id number], CBC, PHOS, BMP, FE PRO, MG #### [facility] [address] Glucose [Mass/Vol] 388 mg/dL High 70-100 [facility] Comment on above: Result Comment: [place] Glucose Reference Range is dependent on time and content of last meal. Glucose of more than 200 mg/dL in a nonstressed, ambulatory subject supports the diagnosis of Diabetes Mellitus. ADA recommended reference range Performed By: #### B 2 GLYPROT XOCHITL, FACTOR II DNA, HOMOCYS PL, FACV LEIDM, PROCF, LIPA, LUPANTCOAG, PROT S FUN, METH, CARDIO GMA, AT3 DEF PROFILE #### [facility] , #### [id number], CBC, PHOS, BMP, FE PRO, MG #### [facility] [address] [place] [address] [place] Potassium [Moles/Vol] 4.7 mmol/L Normal 3.5-5.1 [facility] Comment on above: Performed By: #### B 2 GLYPROT XOCHITL, FACTOR II DNA, HOMOCYS PL, FACV LEIDM, PROCF, LIPA, LUPANTCOAG, PROT S FUN, METH, CARDIO GMA, AT3 DEF PROFILE #### [facility] , #### [id number], CBC, PHOS, BMP, FE PRO, MG #### [facility] [address] [place] [address] Sodium [Moles/Vol] 131 mmol/L Low 136-146 [facility] Comment on above: Performed By: #### B 2 GLYPROT XOCHITL, FACTOR II DNA, HOMOCYS PL, FACV LEIDM, PROCF, LIPA, LUPANTCOAG, PROT S FUN, METH, CARDIO GMA, AT3 DEF PROFILE #### [facility] , #### [id number], CBC, PHOS, BMP, FE PRO, MG #### [facility] [address] [place] [address] Urea nitrogen [Mass/Vol] 25 mg/dL High 9-23 [facility] Comment on above: Performed By: #### B 2 GLYPROT XOCHITL, FACTOR II DNA, HOMOCYS PL, FACV LEIDM, PROCF, LIPA, LUPANTCOAG, PROT S FUN, METH, CARDIO GMA, AT3 DEF PROFILE #### [facility] , #### [id number], CBC, PHOS, BMP, FE PRO, MG #### [facility] [address] [place] [address] COVID-19 Antigenon 1 COVID-19 Antigen Healthcare Worker?: [...] its performance Kate Disclaimer characteristic determined by [employer] and Kate Disclaimer validated at [facility]. This Kate Disclaimer test has not been [...] is terminated or revoked sooner. PERFORMED BY: [place] [id number] PATHOLOGIST CHIEF SCIENCE OFFICER TOBY GRACIA M.D. Normal [facility] Comment on above: Performed By: #### B 2 GLYPROT XOCHITL, FACTOR II DNA, HOMOCYS PL, FACV LEIDM, PROCF, LIPA, LUPANTCOAG, PROT S FUN, METH, CARDIO GMA, AT3 DEF PROFILE #### [facility] , #### [id number], CBC, PHOS, BMP, FE PRO, MG #### [facility] [address] [place] [address] COVID-19 [facility] 09-14-2020 SARS-CoV-2 (COVID-19) RNA MOLLY+probe Ql (Unsp spec) Negative Normal Negative [facility] Comment on above: Order Comment: PT IS NON FASTING Result Comment: Test ing for SARS-CoV-2 by RT-PCR This test was developed and its performance characteristics determined by [employer] and validated at the [facility]. This test has not been FDA cleared [...] is terminated or revoked sooner. PERFORMED BY: [place] [address] PATHOLOGIST CHIEF SCIENCE OFFICER TOBY GRACIA M.D. Performed By: #### B 2 GLYPROT XOCHITL, FACTOR II DNA, HOMOCYS PL, FACV LEIDM, PROCF, LIPA, LUPANTCOAG, PROT S FUN, METH, CARDIO GMA, AT3 DEF PROFILE #### [facility] , #### [id number], CBC, PHOS, BMP, FE PRO, MG #### [address] Complete Blood Count Auto Di ffon 09-14-2020 Basophils (Bld) [#/Vol] 0.1 10*3/uL Normal 0.0-0.2 [facility] Comment on above: Result Comment: PERF ORMED BY: [place] [address] PATHOLOGIST CHIEF SCIENCE OFFICER TOBY GRACIA M.D. Performed By: #### B 2 GLYPROT XOCHITL, FACTOR II DNA, HOMOCYS PL, FACV LEIDM, PROCF, LIPA, LUPANTCOAG, PROT S FUN, METH, CARDIO GMA, AT3 DEF PROFILE #### [facility] , #### [id number], CBC, PHOS, BMP, FE PRO, MG #### [address] Basophils/100 WBC (Bld) 1.1 % Normal . [facility] Comment on above: Performed By: #### B 2 GLYPROT XOCHITL, FACTOR II DNA, HOMOCYS PL, FACV LEIDM, PROCF, LIPA, LUPANTCOAG, PROT S FUN, METH, CARDIO GMA, AT3 DEF PROFILE #### [facility] , #### [id number], CBC, PHOS, BMP, FE PRO, MG #### [place] [address] [place] Eosinophils (Bld) [#/Vol] 0.4 10*3/uL Normal 0.0-0.45 [facility] Comment on above: Performed By: #### B 2 GLYPROT XOCHITL, FACTOR II DNA, HOMOCYS PL, FACV LEIDM, PROCF, LIPA, LUPANTCOAG, PROT S FUN, METH, CARDIO GMA, AT3 DEF PROFILE #### [facility] , #### [id number], CBC, PHOS, BMP, FE PRO, MG #### [address] Eosinophils/100 WBC (Bld) 3.2 % Normal . [facility] Comment on above: Performed By: #### B 2 GLYPROT XOCHITL, FACTOR II DNA, HOMOCYS PL, FACV LEIDM, PROCF, LIPA, LUPANTCOAG, PROT S FUN, METH, CARDIO GMA, AT3 DEF PROFILE #### [facility] , #### [id number], CBC, PHOS, BMP, FE PRO, MG #### [address] Erythrocyte distribution width (RBC) [Ratio] 13.5 % Normal 12.0-14.8 [facility] Comment on above: Performed By: #### B 2 GLYPROT XOCHITL, FACTOR II DNA, HOMOCYS PL, FACV LEIDM, PROCF, LIPA, LUPANTCOAG, PROT S FUN, METH, CARDIO GMA, AT3 DEF PROFILE #### [facility] , #### [id number], CBC, PHOS, BMP, FE PRO, MG #### [address] Hematocrit (Bld) [Volume fraction] 44.2 % Normal 38.8-50.0 [facility] Comment on above: Performed By: #### B 2 GLYPROT XOCHITL, FACTOR II DNA, HOMOCYS PL, FACV LEIDM, PROCF, LIPA, LUPANTCOAG, PROT S FUN, METH, CARDIO GMA, AT3 DEF PROFILE #### [facility] , #### [id number], CBC, PHOS, BMP, FE PRO, MG #### [address] Hemoglobin (Bld) [Mass/Vol] 15.1 g/dL Normal 13.0-17.0 [facility] Comment on above: Performed By: #### B 2 GLYPROT XOCHITL, FACTOR II DNA, HOMOCYS PL, FACV LEIDM, PROCF, LIPA, LUPANTCOAG, PROT S FUN, METH, CARDIO GMA, AT3 DEF PROFILE #### [facility] , #### [id number], CBC, PHOS, BMP, FE PRO, MG #### [address] Lymphocytes (Bld) [#/Vol] 2.2 10*3/uL Normal 1.00-4.8 [facility] Comment on above: Performed By: #### B 2 GLYPROT XOCHITL, FACTOR II DNA, HOMOCYS PL, FACV LEIDM, PROCF, LIPA, LUPANTCOAG, PROT S FUN, METH, CARDIO GMA, AT3 DEF PROFILE #### [facility] , #### [id number], CBC, PHOS, BMP, FE PRO, MG #### [address] Lymphocytes/100 WBC (Bld) 19.4 % Normal . [facility] Comment on above: Performed By: #### B 2 GLYPROT XOCHITL, FACTOR II DNA, HOMOCYS PL, FACV LEIDM, PROCF, LIPA, LUPANTCOAG, PROT S FUN, METH, CARDIO GMA, AT3 DEF PROFILE #### [facility] , #### [id number], CBC, PHOS, BMP, FE PRO, MG #### [address] MCH (RBC) [Entitic mass] 31.5 pg Normal 27.5-35.2 [facility] Comment on above: Performed By: #### B 2 GLYPROT XOCHITL, FACTOR II DNA, HOMOCYS PL, FACV LEIDM, PROCF, LIPA, LUPANTCOAG, PROT S FUN, METH, CARDIO GMA, AT3 DEF PROFILE #### [facility] , #### [id number], CBC, PHOS, BMP, FE PRO, MG #### [address] MCV (RBC) [Entitic vol] 91.9 fL Normal 83.5-101 [facility] Comment on above: Performed By: #### B 2 GLYPROT XOCHITL, FACTOR II DNA, HOMOCYS PL, FACV LEIDM, PROCF, LIPA, LUPANTCOAG, PROT S FUN, METH, CARDIO GMA, AT3 DEF PROFILE #### [facility] , #### [id number], CBC, PHOS, BMP, FE PRO, MG #### [address] Mean Corpuscular HGB Conc 34.3 g/dL Normal 32.5-35.6 [facility] Comment on above: Performed By: #### B 2 GLYPROT XOCHITL, FACTOR II DNA, HOMOCYS PL, FACV LEIDM, PROCF, LIPA, LUPANTCOAG, PROT S FUN, METH, CARDIO GMA, AT3 DEF PROFILE #### [facility] , #### [id number], CBC, PHOS, BMP, FE PRO, MG #### [address] Monocytes (Bld) [#/Vol] 1.3 10*3/uL High 0.0-0.8 [facility] Comment on above: Performed By: #### B 2 GLYPROT XOCHITL, FACTOR II DNA, HOMOCYS PL, FACV LEIDM, PROCF, LIPA, LUPANTCOAG, PROT S FUN, METH, CARDIO GMA, AT3 DEF PROFILE #### [facility] , #### [id number], CBC, PHOS, BMP, FE PRO, MG #### [address] Monocytes/100 WBC (Bld) 11.2 % Normal . [facility] Comment on above: Performed By: #### B 2 GLYPROT XOCHITL, FACTOR II DNA, HOMOCYS PL, FACV LEIDM, PROCF, LIPA, LUPANTCOAG, PROT S FUN, METH, CARDIO GMA, AT3 DEF PROFILE #### [facility] , #### [id number], CBC, PHOS, BMP, FE PRO, MG #### [address] Neutrophils (Bld) [#/Vol] 7.4 10*3/uL Normal 1.8-7.7 [facility] Comment on above: Performed By: #### B 2 GLYPROT XOCHITL, FACTOR II DNA, HOMOCYS PL, FACV LEIDM, PROCF, LIPA, LUPANTCOAG, PROT S FUN, METH, CARDIO GMA, AT3 DEF PROFILE #### [facility] , #### [id number], CBC, PHOS, BMP, FE PRO, MG #### [address] Neutrophils/100 WBC (Bld) 65.1 % Normal . [facility] Comment on above: Performed By: #### B 2 GLYPROT XOCHITL, FACTOR II DNA, HOMOCYS PL, FACV LEIDM, PROCF, LIPA, LUPANTCOAG, PROT S FUN, METH, CARDIO GMA, AT3 DEF PROFILE #### [facility] , #### [id number], CBC, PHOS, BMP, FE PRO, MG #### [address] Nucleated RBC/100 WBC (Bld) [Ratio] 0.2 % Normal 0-0.5 [facility] Comment on above: Performed By: #### B 2 GLYPROT XOCHITL, FACTOR II DNA, HOMOCYS PL, FACV LEIDM, PROCF, LIPA, LUPANTCOAG, PROT S FUN, METH, CARDIO GMA, AT3 DEF PROFILE #### [facility] , #### [id number], CBC, PHOS, BMP, FE PRO, MG #### [address] [place] [address] [place] Platelet mean volume (Bld) [Entitic vol] 10.3 fL High 6.6-10.1 [facility] Comment on above: Performed By: #### B 2 GLYPROT XOCHITL, FACTOR II DNA, HOMOCYS PL, FACV LEIDM, PROCF, LIPA, LUPANTCOAG, PROT S FUN, METH, CARDIO GMA, AT3 DEF PROFILE #### [facility] , #### [id number], CBC, PHOS, BMP, FE PRO, MG #### [facility] [address] Platelets (Bld) [#/Vol] 314 10*3/uL Normal 150-450 [facility] Comment on above: Performed By: #### B 2 GLYPROT XOCHITL, FACTOR II DNA, HOMOCYS PL, FACV LEIDM, PROCF, LIPA, LUPANTCOAG, PROT S FUN, METH, CARDIO GMA, AT3 DEF PROFILE #### [facility] , #### [id number], CBC, PHOS, BMP, FE PRO, MG #### [facility] [address] [place] [address] RBC (Bld) [#/Vol] 4.81 10*6/uL Normal 3.90-5.60 [facility] Comment on above: Performed By: #### B 2 GLYPROT XOCHITL, FACTOR II DNA, HOMOCYS PL, FACV LEIDM, PROCF, LIPA, LUPANTCOAG, PROT S FUN, METH, CARDIO GMA, AT3 DEF PROFILE #### [facility] , #### [id number], CBC, PHOS, BMP, FE PRO, MG #### [facility] [address] [place] [address] WBC (Bld) [#/Vol] 11.4 10*3/uL High 4.5-11.0 [facility] Comment on above: Performed By: #### B 2 GLYPROT XOCHITL, FACTOR II DNA, HOMOCYS PL, FACV LEIDM, PROCF, LIPA, LUPANTCOAG, PROT S FUN, METH, CARDIO GMA, AT3 DEF PROFILE #### [facility] , #### [id number], CBC, PHOS, BMP, FE PRO, MG #### [address] Cortisolon 09-14-2020 Cortisol 5.9 ug/dL Normal [facility] Comment on above: Result Comment: Refe rence range: AM 6 - 24 ug/dl PM <10 ug/dl PERFORMED BY: [place] [address] PATHOLOGIST CHIEF SCIENCE OFFICER TOBY GRACIA M.D. Performed By: #### B 2 GLYPROT XOCHITL, FACTOR II DNA, HOMOCYS PL, FACV LEIDM, PROCF, LIPA, LUPANTCOAG, PROT S FUN, METH, CARDIO GMA, AT3 DEF PROFILE #### [facility] , #### [id number], CBC, PHOS, BMP, FE PRO, MG #### [address] ECG 12 lead ECGon 09-14-2020 ECG 12 lead ECG [place] [address] Electrocardiograph Report Signed Patient: Don Elkins MR#: [id number] : 1950 Acct:[id number] Age/Sex: 70 / M ADM Date: 09/14/20 Loc: Room: [address] [place] [address] Type: ADM IN Attending Dr: Carloz Roe [...] Abnormal ECG When compared with ECG of 26-APR-2021 17:39, premature ventricular complexes are now present Inferior infarct is now present Nonspecific T wave abnormality now evident in Inferior leads Confirmed by Nando Sandoval DO ([id number]) on 09/15/2020 10:03:14 AM Referred By: Electronically Signed By:Nando Sandoval DO Transcribed By: MUS Dictated By: Nando Sandoval DO 09/14/20 [id number] Signed By: 09/15/20 1003 Normal [facility] Hepatic Panelon 09-14-2020 Albumin [Mass/Vol] 3.2 g/dL Normal 3.2-5.5 [facility] Comment on above: Performed By: #### B 2 GLYPROT XOCHITL, FACTOR II DNA, HOMOCYS PL, FACV LEIDM, PROCF, LIPA, LUPANTCOAG, PROT S FUN, METH, CARDIO GMA, AT3 DEF PROFILE #### [facility] , #### [id number], CBC, PHOS, BMP, FE PRO, MG #### [facility] [address] Albumin/Globulin [Mass ratio] 1.1 {ratio} [facility] Comment on above: Performed By: #### B 2 GLYPROT XOCHITL, FACTOR II DNA, HOMOCYS PL, FACV LEIDM, PROCF, LIPA, LUPANTCOAG, PROT S FUN, METH, CARDIO GMA, AT3 DEF PROFILE #### [facility] , #### [id number], CBC, PHOS, BMP, FE PRO, MG #### [facility] [address] ALP [Catalytic activity/Vol] 48 U/L Normal 32-92 [facility] Comment on above: Performed By: #### B 2 GLYPROT XOCHITL, FACTOR II DNA, HOMOCYS PL, FACV LEIDM, PROCF, LIPA, LUPANTCOAG, PROT S FUN, METH, CARDIO GMA, AT3 DEF PROFILE #### [facility] , #### [id number], CBC, PHOS, BMP, FE PRO, MG #### [facility] [address] [place] [address] ALT [Catalytic activity/Vol] 111 U/L High 10-60 [facility] Comment on above: Performed By: #### B 2 GLYPROT XOCHITL, FACTOR II DNA, HOMOCYS PL, FACV LEIDM, PROCF, LIPA, LUPANTCOAG, PROT S FUN, METH, CARDIO GMA, AT3 DEF PROFILE #### [facility] , #### [id number], CBC, PHOS, BMP, FE PRO, MG #### [address] AST [Catalytic activity/Vol] 41 U/L Normal [facility] Comment on above: Performed By: #### B 2 GLYPROT XOCHITL, FACTOR II DNA, HOMOCYS PL, FACV LEIDM, PROCF, LIPA, LUPANTCOAG, PROT S FUN, METH, CARDIO GMA, AT3 DEF PROFILE #### [facility] , #### [id number], CBC, PHOS, BMP, FE PRO, MG #### [address] Bilirubin [Mass/Vol] 1.2 mg/dL Normal 0.3-1.2 [facility] Comment on above: Performed By: #### B 2 GLYPROT XOCHITL, FACTOR II DNA, HOMOCYS PL, FACV LEIDM, PROCF, LIPA, LUPANTCOAG, PROT S FUN, METH, CARDIO GMA, AT3 DEF PROFILE #### [facility] , #### [id number], CBC, PHOS, BMP, FE PRO, MG #### [address] Bilirubin,Indirec t 1.0 mg/dL Normal [facility] Comment on above: Performed By: #### B 2 GLYPROT XOCHITL, FACTOR II DNA, HOMOCYS PL, FACV LEIDM, PROCF, LIPA, LUPANTCOAG, PROT S FUN, METH, CARDIO GMA, AT3 DEF PROFILE #### [facility] , #### [id number], CBC, PHOS, BMP, FE PRO, MG #### [facility] [address] [place] [address] Bilirubin.indirec t [Mass/Vol] 0.2 mg/dL Normal 0.0-0.4 [facility] Comment on above: Performed By: #### B 2 GLYPROT XOCHITL, FACTOR II DNA, HOMOCYS PL, FACV LEIDM, PROCF, LIPA, LUPANTCOAG, PROT S FUN, METH, CARDIO GMA, AT3 DEF PROFILE #### [facility] , #### [id number], CBC, PHOS, BMP, FE PRO, MG #### [address] Globulin (S) [Mass/Vol] 2.9 g/dL Normal [facility] Comment on above: Performed By: #### B 2 GLYPROT XOCHITL, FACTOR II DNA, HOMOCYS PL, FACV LEIDM, PROCF, LIPA, LUPANTCOAG, PROT S FUN, METH, CARDIO GMA, AT3 DEF PROFILE #### [facility] , #### [id number], CBC, PHOS, BMP, FE PRO, MG #### [address] Protein [Mass/Vol] 6.1 g/dL Normal 6.1-7.9 [facility] Comment on above: Performed By: #### B 2 GLYPROT XOCHITL, FACTOR II DNA, HOMOCYS PL, FACV LEIDM, PROCF, LIPA, LUPANTCOAG, PROT S FUN, METH, CARDIO GMA, AT3 DEF PROFILE #### [facility] , #### [id number], CBC, PHOS, BMP, FE PRO, MG #### [address] Lactic Acidon 09-14-2020 Lactate [Moles/Vol] 2.5 mmol/L Off scale high 0.5-2.2 [facility] Comment on above: Result Comment: Crit ical value result called at 1847 on 09/14/20 PERFORMED BY: [place] [address] PATHOLOGIST CHIEF SCIENCE OFFICER TOBY GRACIA M.D. Performed By: #### B 2 GLYPROT XOCHITL, FACTOR II DNA, HOMOCYS PL, FACV LEIDM, PROCF, LIPA, LUPANTCOAG, PROT S FUN, METH, CARDIO GMA, AT3 DEF PROFILE #### [facility] , #### [id number], CBC, PHOS, BMP, FE PRO, MG #### [facility] [address] [place], [place] [id number] [facility] Lipaseon 09-14-2020 Lipase [Catalytic activity/Vol] 145.0 U/L High 22- [facility] Comment on above: Result Comment: PERF ORMED BY: [place] [address] PATHOLOGIST CHIEF SCIENCE OFFICER TOBY GRACIA M.D. Performed By: #### B 2 GLYPROT XOCHITL, FACTOR II DNA, HOMOCYS PL, FACV LEIDM, PROCF, LIPA, LUPANTCOAG, PROT S FUN, METH, CARDIO GMA, AT3 DEF PROFILE #### [facility] , #### [id number], CBC, PHOS, BMP, FE PRO, MG #### [facility] [address] [place], [place] [id number] [facility] Magnesiumon 09-14-2020 Magnesium [Mass/Vol] 1.7 mg/dL Normal 1.6-2.6 [facility] Comment on above: Performed By: #### B 2 GLYPROT XOCHITL, FACTOR II DNA, HOMOCYS PL, FACV LEIDM, PROCF, LIPA, LUPANTCOAG, PROT S FUN, METH, CARDIO GMA, AT3 DEF PROFILE #### [facility] , #### [id number], CBC, PHOS, BMP, FE PRO, MG #### [facility] [address] [place] [id number] [facility] Kate Ag Negativeon 04-29-20 21 Kate Ag Negative Negative Normal Negative [facility] Comment on above: Result Comment: This is a duplicate Kate SARS Antigen (ADORE) result to be used for statistical tracking purpose only. PERFORMED BY: [place] [address] PATHOLOGIST CHIEF SCIENCE OFFICER TOBY GRACIA M.D. Performed By: #### B 2 GLYPROT XOCHITL, FACTOR II DNA, HOMOCYS PL, FACV LEIDM, PROCF, LIPA, LUPANTCOAG, PROT S FUN, METH, CARDIO GMA, AT3 DEF PROFILE #### [facility] , #### [id number], CBC, PHOS, BMP, FE PRO, MG #### [facility] [address] [place] [address] Basic Metabolic Panelon 08-18 Calcium [Mass/Vol] 9.3 mg/dL Normal 8.2-10.2 [facility] Comment on above: Performed By: #### B 2 GLYPROT XOCHITL, FACTOR II DNA, HOMOCYS PL, FACV LEIDM, PROCF, LIPA, LUPANTCOAG, PROT S FUN, METH, CARDIO GMA, AT3 DEF PROFILE #### [facility] , #### [id number], CBC, PHOS, BMP, FE PRO, MG #### [facility] [address] [place] [address] Chloride [Moles/Vol] 98 mmol/L Normal 95-114 [facility] Comment on above: Performed By: #### B 2 GLYPROT XOCHITL, FACTOR II DNA, HOMOCYS PL, FACV LEIDM, PROCF, LIPA, LUPANTCOAG, PROT S FUN, METH, CARDIO GMA, AT3 DEF PROFILE #### [facility] , #### [id number], CBC, PHOS, BMP, FE PRO, MG #### [facility] [address] [place] [address] CO2 [Moles/Vol] 24.1 mmol/L Normal 22.0-30.0 [facility] Comment on above: Performed By: #### B 2 GLYPROT XOCHITL, FACTOR II DNA, HOMOCYS PL, FACV LEIDM, PROCF, LIPA, LUPANTCOAG, PROT S FUN, METH, CARDIO GMA, AT3 DEF PROFILE #### [facility] , #### [id number], CBC, PHOS, BMP, FE PRO, MG #### [address] Creatinine [Mass/Vol] 1.53 mg/dL High 0.64-1.27 [facility] Comment on above: Performed By: #### B 2 GLYPROT XOCHITL, FACTOR II DNA, HOMOCYS PL, FACV LEIDM, PROCF, LIPA, LUPANTCOAG, PROT S FUN, METH, CARDIO GMA, AT3 DEF PROFILE #### [facility] , #### [id number], CBC, PHOS, BMP, FE PRO, MG #### [address] Creatinine Clr Calc Pharmacy 54.38 [facility] Comment on above: Performed By: #### B 2 GLYPROT XOCHITL, FACTOR II DNA, HOMOCYS PL, FACV LEIDM, PROCF, LIPA, LUPANTCOAG, PROT S FUN, METH, CARDIO GMA, AT3 DEF PROFILE #### [facility] , #### [id number], CBC, PHOS, BMP, FE PRO, MG #### [address] Estimated GFR ( Gabriela 55 [facility] Comment on above: Result Comment: GFR estimated reference range: According to KDOQI guidelines, <60 ml/min/1.73m2 is sufficient to diagnose a patient with chronic kidney disease. Performed By: #### B 2 GLYPROT XOCHITL, FACTOR II DNA, HOMOCYS PL, FACV LEIDM, PROCF, LIPA, LUPANTCOAG, PROT S FUN, METH, CARDIO GMA, AT3 DEF PROFILE #### [facility] , #### [id number], CBC, PHOS, BMP, FE PRO, MG #### [facility] [address] Estimated GFR (Non- Am 45 Normal [facility] Comment on above: Performed By: #### B 2 GLYPROT XOCHITL, FACTOR II DNA, HOMOCYS PL, FACV LEIDM, PROCF, LIPA, LUPANTCOAG, PROT S FUN, METH, CARDIO GMA, AT3 DEF PROFILE #### [facility] , #### [id number], CBC, PHOS, BMP, FE PRO, MG #### [facility] [address] Glucose [Mass/Vol] 200 mg/dL High 70-100 [facility] Comment on above: Result Comment: [facility] Glucose Reference Range is dependent on time and content of last meal. Glucose of more than 200 mg/dL in a nonstressed, ambulatory subject supports the diagnosis of Diabetes Mellitus. ADA recommended reference range Performed By: #### B 2 GLYPROT XOCHITL, FACTOR II DNA, HOMOCYS PL, FACV LEIDM, PROCF, LIPA, LUPANTCOAG, PROT S FUN, METH, CARDIO GMA, AT3 DEF PROFILE #### [facility] , #### [id number], CBC, PHOS, BMP, FE PRO, MG #### [facility] [address] Potassium [Moles/Vol] 4.4 mmol/L Normal 3.5-5.1 [facility] Comment on above: Performed By: #### B 2 GLYPROT XOCHITL, FACTOR II DNA, HOMOCYS PL, FACV LEIDM, PROCF, LIPA, LUPANTCOAG, PROT S FUN, METH, CARDIO GMA, AT3 DEF PROFILE #### [facility] , #### [id number], CBC, PHOS, BMP, FE PRO, MG #### [facility] [address] Sodium [Moles/Vol] 135 mmol/L Low 136-146 [facility] Comment on above: Performed By: #### B 2 GLYPROT XOCHITL, FACTOR II DNA, HOMOCYS PL, FACV LEIDM, PROCF, LIPA, LUPANTCOAG, PROT S FUN, METH, CARDIO GMA, AT3 DEF PROFILE #### [facility] , #### [id number], CBC, PHOS, BMP, FE PRO, MG #### [facility] [address] Urea nitrogen [Mass/Vol] 16 mg/dL Normal 9-23 [facility] Comment on above: Performed By: #### B 2 GLYPROT XOCHITL, FACTOR II DNA, HOMOCYS PL, FACV LEIDM, PROCF, LIPA, LUPANTCOAG, PROT S FUN, METH, CARDIO GMA, AT3 DEF PROFILE #### [facility] , #### [id number], CBC, PHOS, BMP, FE PRO, MG #### [facility] [address] COVID-19 Antigenon 1 COVID-19 Antigen Healthcare Worker?: [...] its performance Kate Disclaimer characteristic determined by [employer] and Kate Disclaimer validated at [facility]. This Kate Disclaimer test has not been [...] is terminated or revoked sooner. PERFORMED BY: [facility] [place] [address] PATHOLOGIST CHIEF SCIENCE OFFICER TOBY GRACIA M.D. [facility] Comment on above: Performed By: #### B 2 GLYPROT XOCHITL, FACTOR II DNA, HOMOCYS PL, FACV LEIDM, PROCF, LIPA, LUPANTCOAG, PROT S FUN, METH, CARDIO GMA, AT3 DEF PROFILE #### [facility] , #### [id number], CBC, PHOS, BMP, FE PRO, MG #### [facility] [address] abdomen pelvis w conon CT abdomen pelvis w con [facility] [place] [address] [place] [address] CT Scan Report Signed Patient: Don Elkins MR#: [id number] : 1950 Acct:[id number] Age/Sex: 70 / M ADM Date: 09/11/20 Loc: ER Room: Type: [facility] ER Attending Dr: Ordering Provider: [...] Corbin Gaxiola M.D.09/11/2020 7:25 PM Dictation Location: [place] [address] Transcribed By: [facility] 09/11/201924 Dictated By: Corbin Gaxiola MD 09/11/201910 Signed By: 09/11/201924 Normal [facility] Complete Blood Count Auto Di ffon 09-11-2020 Basophils (Bld) [#/Vol] 0.1 10*3/uL Normal 0.0-0.2 [facility] Comment on above: Result Comment: PERF ORMED BY: [place] [address] PATHOLOGIST CHIEF SCIENCE OFFICER TOBY GRACIA M.D. Performed By: #### B 2 GLYPROT XOCHITL, FACTOR II DNA, HOMOCYS PL, FACV LEIDM, PROCF, LIPA, LUPANTCOAG, PROT S FUN, METH, CARDIO GMA, AT3 DEF PROFILE #### [facility] , #### [id number], CBC, PHOS, BMP, FE PRO, MG #### [address] Basophils/100 WBC (Bld) 1.2 % Normal . [facility] Comment on above: Performed By: #### B 2 GLYPROT XOCHITL, FACTOR II DNA, HOMOCYS PL, FACV LEIDM, PROCF, LIPA, LUPANTCOAG, PROT S FUN, METH, CARDIO GMA, AT3 DEF PROFILE #### [facility] , #### [id number], CBC, PHOS, BMP, FE PRO, MG #### [address] Eosinophils (Bld) [#/Vol] 0.3 10*3/uL Normal 0.0-0.45 [facility] Comment on above: Performed By: #### B 2 GLYPROT XOCHITL, FACTOR II DNA, HOMOCYS PL, FACV LEIDM, PROCF, LIPA, LUPANTCOAG, PROT S FUN, METH, CARDIO GMA, AT3 DEF PROFILE #### [facility] , #### [id number], CBC, PHOS, BMP, FE PRO, MG #### [address] Eosinophils/100 WBC (Bld) 4.0 % Normal . [facility] Comment on above: Performed By: #### B 2 GLYPROT XOCHITL, FACTOR II DNA, HOMOCYS PL, FACV LEIDM, PROCF, LIPA, LUPANTCOAG, PROT S FUN, METH, CARDIO GMA, AT3 DEF PROFILE #### [facility] , #### [id number], CBC, PHOS, BMP, FE PRO, MG #### [address] Erythrocyte distribution width (RBC) [Ratio] 13.3 % Normal 12.0-14.8 [facility] Comment on above: Performed By: #### B 2 GLYPROT XOCHITL, FACTOR II DNA, HOMOCYS PL, FACV LEIDM, PROCF, LIPA, LUPANTCOAG, PROT S FUN, METH, CARDIO GMA, AT3 DEF PROFILE #### [facility] , #### [id number], CBC, PHOS, BMP, FE PRO, MG #### [address] Hematocrit (Bld) [Volume fraction] 41.6 % Normal 38.8-50.0 [facility] Comment on above: Performed By: #### B 2 GLYPROT XOCHITL, FACTOR II DNA, HOMOCYS PL, FACV LEIDM, PROCF, LIPA, LUPANTCOAG, PROT S FUN, METH, CARDIO GMA, AT3 DEF PROFILE #### [facility] , #### [id number], CBC, PHOS, BMP, FE PRO, MG #### [facility] [address] Hemoglobin (Bld) [Mass/Vol] 14.5 g/dL Normal 13.0-17.0 [facility] Comment on above: Performed By: #### B 2 GLYPROT XOCHITL, FACTOR II DNA, HOMOCYS PL, FACV LEIDM, PROCF, LIPA, LUPANTCOAG, PROT S FUN, METH, CARDIO GMA, AT3 DEF PROFILE #### [facility] , #### [id number], CBC, PHOS, BMP, FE PRO, MG #### [facility] [address] [place] [address] Lymphocytes (Bld) [#/Vol] 2.2 10*3/uL Normal 1.00-4.8 [facility] Comment on above: Performed By: #### B 2 GLYPROT XOCHITL, FACTOR II DNA, HOMOCYS PL, FACV LEIDM, PROCF, LIPA, LUPANTCOAG, PROT S FUN, METH, CARDIO GMA, AT3 DEF PROFILE #### [facility] , #### [id number], CBC, PHOS, BMP, FE PRO, MG #### [facility] [address] [place] [address] [place] Lymphocytes/100 WBC (Bld) 25.8 % Normal . [facility] Comment on above: Performed By: #### B 2 GLYPROT XOCHITL, FACTOR II DNA, HOMOCYS PL, FACV LEIDM, PROCF, LIPA, LUPANTCOAG, PROT S FUN, METH, CARDIO GMA, AT3 DEF PROFILE #### [facility] , #### [id number], CBC, PHOS, BMP, FE PRO, MG #### [address] MCH (RBC) [Entitic mass] 31.5 pg Normal 27.5-35.2 [facility] Comment on above: Performed By: #### B 2 GLYPROT XOCHITL, FACTOR II DNA, HOMOCYS PL, FACV LEIDM, PROCF, LIPA, LUPANTCOAG, PROT S FUN, METH, CARDIO GMA, AT3 DEF PROFILE #### [facility] , #### [id number], CBC, PHOS, BMP, FE PRO, MG #### [address] MCV (RBC) [Entitic vol] 90.8 fL Normal 83.5-101 [facility] Comment on above: Performed By: #### B 2 GLYPROT XOCHITL, FACTOR II DNA, HOMOCYS PL, FACV LEIDM, PROCF, LIPA, LUPANTCOAG, PROT S FUN, METH, CARDIO GMA, AT3 DEF PROFILE #### [facility] , #### [id number], CBC, PHOS, BMP, FE PRO, MG #### [address] Mean Corpuscular HGB Conc 34.7 g/dL Normal 32.5-35.6 [facility] Comment on above: Performed By: #### B 2 GLYPROT XOCHITL, FACTOR II DNA, HOMOCYS PL, FACV LEIDM, PROCF, LIPA, LUPANTCOAG, PROT S FUN, METH, CARDIO GMA, AT3 DEF PROFILE #### [facility] , #### [id number], CBC, PHOS, BMP, FE PRO, MG #### [address] Monocytes (Bld) [#/Vol] 1.1 10*3/uL High 0.0-0.8 [facility] Comment on above: Performed By: #### B 2 GLYPROT XOCHITL, FACTOR II DNA, HOMOCYS PL, FACV LEIDM, PROCF, LIPA, LUPANTCOAG, PROT S FUN, METH, CARDIO GMA, AT3 DEF PROFILE #### [facility] , #### [id number], CBC, PHOS, BMP, FE PRO, MG #### [address] Monocytes/100 WBC (Bld) 12.4 % Normal . [facility] Comment on above: Performed By: #### B 2 GLYPROT XOCHITL, FACTOR II DNA, HOMOCYS PL, FACV LEIDM, PROCF, LIPA, LUPANTCOAG, PROT S FUN, METH, CARDIO GMA, AT3 DEF PROFILE #### [facility] , #### [id number], CBC, PHOS, BMP, FE PRO, MG #### [place] [address] [place] Neutrophils (Bld) [#/Vol] 4.8 10*3/uL Normal 1.8-7.7 [facility] Comment on above: Performed By: #### B 2 GLYPROT XOCHITL, FACTOR II DNA, HOMOCYS PL, FACV LEIDM, PROCF, LIPA, LUPANTCOAG, PROT S FUN, METH, CARDIO GMA, AT3 DEF PROFILE #### [facility] , #### [id number], CBC, PHOS, BMP, FE PRO, MG #### [address] Neutrophils/100 WBC (Bld) 56.6 % Normal . [facility] Comment on above: Performed By: #### B 2 GLYPROT XOCHITL, FACTOR II DNA, HOMOCYS PL, FACV LEIDM, PROCF, LIPA, LUPANTCOAG, PROT S FUN, METH, CARDIO GMA, AT3 DEF PROFILE #### [facility] , #### [id number], CBC, PHOS, BMP, FE PRO, MG #### [place] [id number] [place] Nucleated RBC/100 WBC (Bld) [Ratio] 0.2 % Normal 0-0.5 [facility] Comment on above: Performed By: #### B 2 GLYPROT XOCHITL, FACTOR II DNA, HOMOCYS PL, FACV LEIDM, PROCF, LIPA, LUPANTCOAG, PROT S FUN, METH, CARDIO GMA, AT3 DEF PROFILE #### [facility] , #### [id number], CBC, PHOS, BMP, FE PRO, MG #### [facility] [address] Platelet mean volume (Bld) [Entitic vol] 10.0 fL Normal 6.6-10.1 [facility] Comment on above: Performed By: #### B 2 GLYPROT XOCHITL, FACTOR II DNA, HOMOCYS PL, FACV LEIDM, PROCF, LIPA, LUPANTCOAG, PROT S FUN, METH, CARDIO GMA, AT3 DEF PROFILE #### [facility] , #### [id number], CBC, PHOS, BMP, FE PRO, MG #### [facility] [address] [place] [address] Platelets (Bld) [#/Vol] 229 10*3/uL Normal 150-450 [facility] Comment on above: Performed By: #### B 2 GLYPROT XOCHITL, FACTOR II DNA, HOMOCYS PL, FACV LEIDM, PROCF, LIPA, LUPANTCOAG, PROT S FUN, METH, CARDIO GMA, AT3 DEF PROFILE #### [facility] , #### [id number], CBC, PHOS, BMP, FE PRO, MG #### [facility] [address] [place] [address] RBC (Bld) [#/Vol] 4.59 10*6/uL Normal 3.90-5.60 [facility] Comment on above: Performed By: #### B 2 GLYPROT XOCHITL, FACTOR II DNA, HOMOCYS PL, FACV LEIDM, PROCF, LIPA, LUPANTCOAG, PROT S FUN, METH, CARDIO GMA, AT3 DEF PROFILE #### [facility] , #### [id number], CBC, PHOS, BMP, FE PRO, MG #### [facility] [address] [place] [address] WBC (Bld) [#/Vol] 8.5 10*3/uL Normal 4.5-11.0 [facility] Comment on above: Performed By: #### B 2 GLYPROT XOCHITL, FACTOR II DNA, HOMOCYS PL, FACV LEIDM, PROCF, LIPA, LUPANTCOAG, PROT S FUN, METH, CARDIO GMA, AT3 DEF PROFILE #### [facility] , #### [id number], CBC, PHOS, BMP, FE PRO, MG #### [facility] [address] [place] [address] ECG 12 lead ECGon 09-11-2020 ECG 12 lead ECG [facility] [place] [address] [place] [address] Electrocardiograph Report Signed Patient: Don Elkins MR#: [id number] : 1950 Acct:[id number] Age/Sex: 70 / M ADM Date: 09/11/20 Loc: ER Room: Type: [facility] ER Attending Dr: Ordering Provider: [...] was found Confirmed by Michele GAMINO DO ([id number]) on 09/11/2020 7:48:19 PM Referred By: Electronically Signed By:Michele GAMINO DO Transcribed By: MUS Dictated By: Michele Gamino DO 09/11/20 1739 Signed By: 09/11/201947 Normal [facility] Hepatic Panelon 09-11-2020 Albumin [Mass/Vol] 3.4 g/dL Normal 3.2-5.5 [facility] Comment on above: Performed By: #### B 2 GLYPROT XOCHITL, FACTOR II DNA, HOMOCYS PL, FACV LEIDM, PROCF, LIPA, LUPANTCOAG, PROT S FUN, METH, CARDIO GMA, AT3 DEF PROFILE #### [facility] , #### [id number], CBC, PHOS, BMP, FE PRO, MG #### [facility] [address] Albumin/Globulin [Mass ratio] 1.3 {ratio} [facility] Comment on above: Performed By: #### B 2 GLYPROT XOCHITL, FACTOR II DNA, HOMOCYS PL, FACV LEIDM, PROCF, LIPA, LUPANTCOAG, PROT S FUN, METH, CARDIO GMA, AT3 DEF PROFILE #### [facility] , #### [id number], CBC, PHOS, BMP, FE PRO, MG #### [facility] [address] ALP [Catalytic activity/Vol] 45 U/L Normal 32-92 [facility] Comment on above: Performed By: #### B 2 GLYPROT XOCHITL, FACTOR II DNA, HOMOCYS PL, FACV LEIDM, PROCF, LIPA, LUPANTCOAG, PROT S FUN, METH, CARDIO GMA, AT3 DEF PROFILE #### [facility] , #### [id number], CBC, PHOS, BMP, FE PRO, MG #### [facility] [address] [place] [id number] [place] ALT [Catalytic activity/Vol] 152 U/L High 10-60 [facility] Comment on above: Performed By: #### B 2 GLYPROT XOCHITL, FACTOR II DNA, HOMOCYS PL, FACV LEIDM, PROCF, LIPA, LUPANTCOAG, PROT S FUN, METH, CARDIO GMA, AT3 DEF PROFILE #### [facility] , #### [id number], CBC, PHOS, BMP, FE PRO, MG #### [address] AST [Catalytic activity/Vol] 64 U/L High 10-42 [facility] Comment on above: Performed By: #### B 2 GLYPROT XOCHITL, FACTOR II DNA, HOMOCYS PL, FACV LEIDM, PROCF, LIPA, LUPANTCOAG, PROT S FUN, METH, CARDIO GMA, AT3 DEF PROFILE #### [facility] , #### [id number], CBC, PHOS, BMP, FE PRO, MG #### [address] Bilirubin [Mass/Vol] 1.6 mg/dL High 0.3-1.2 [facility] Comment on above: Result Comment: Samp les [...] AT3 DEF PROFILE #### [facility] , #### [id number], CBC, PHOS, BMP, FE PRO, MG #### [address] Bilirubin,Indirec t 1.4 mg/dL Normal [facility] Comment on above: Performed By: #### B 2 GLYPROT XOCHITL, FACTOR II DNA, HOMOCYS PL, FACV LEIDM, PROCF, LIPA, LUPANTCOAG, PROT S FUN, METH, CARDIO GMA, AT3 DEF PROFILE #### [facility] , #### [id number], CBC, PHOS, BMP, FE PRO, MG #### [address] Bilirubin.indirec t [Mass/Vol] 0.2 mg/dL Normal 0.0-0.4 [facility] Comment on above: Performed By: #### B 2 GLYPROT XOCHITL, FACTOR II DNA, HOMOCYS PL, FACV LEIDM, PROCF, LIPA, LUPANTCOAG, PROT S FUN, METH, CARDIO GMA, AT3 DEF PROFILE #### [facility] , #### [id number], CBC, PHOS, BMP, FE PRO, MG #### [facility] [address] [place] [address] Globulin (S) [Mass/Vol] 2.6 g/dL Normal [facility] Comment on above: Performed By: #### B 2 GLYPROT XOCHITL, FACTOR II DNA, HOMOCYS PL, FACV LEIDM, PROCF, LIPA, LUPANTCOAG, PROT S FUN, METH, CARDIO GMA, AT3 DEF PROFILE #### [facility] , #### [id number], CBC, PHOS, BMP, FE PRO, MG #### [address] Protein [Mass/Vol] 6.0 g/dL Low 6.1-7.9 [facility] Comment on above: Performed By: #### B 2 GLYPROT XOCHITL, FACTOR II DNA, HOMOCYS PL, FACV LEIDM, PROCF, LIPA, LUPANTCOAG, PROT S FUN, METH, CARDIO GMA, AT3 DEF PROFILE #### [facility] , #### [id number], CBC, PHOS, BMP, FE PRO, MG #### [facility] [address] [place] [address] Lipaseon 09-11-2020 Lipase [Catalytic activity/Vol] 60.0 U/L High [facility] Comment on above: Result Comment: PERF ORMED BY: [place] [address] PATHOLOGIST CHIEF SCIENCE OFFICER TOBY GRACIA M.D. Performed By: #### B 2 GLYPROT XOCHITL, FACTOR II DNA, HOMOCYS PL, FACV LEIDM, PROCF, LIPA, LUPANTCOAG, PROT S FUN, METH, CARDIO GMA, AT3 DEF PROFILE #### [facility] , #### [id number], CBC, PHOS, BMP, FE PRO, MG #### [facility] [address] Partial Thromboplastin Timeo n 09-11-2020 aPTT Coag (Bld) [Time] 32.5 s Normal 25.1-36.5 [facility] Comment on above: Result Comment: PERF ORMED BY: [place] [address] PATHOLOGIST CHIEF SCIENCE OFFICER TOBY GRACIA M.D. Performed By: #### B 2 GLYPROT XOCHITL, FACTOR II DNA, HOMOCYS PL, FACV LEIDM, PROCF, LIPA, LUPANTCOAG, PROT S FUN, METH, CARDIO GMA, AT3 DEF PROFILE #### [facility] , #### [id number], CBC, PHOS, BMP, FE PRO, MG #### [facility] [address] [place] [address] Prothrombin Time INRon 09-11 INR Coag (PPP) [Relative time] 2.0 {INR} Normal [facility] Comment on above: Result Comment: INR Therapeutic [...] AT3 DEF PROFILE #### [facility] , #### [id number], CBC, PHOS, BMP, FE PRO, MG #### [address] PT Coag (PPP) [Time] 22.4 s High 9.0-12.9 [facility] Comment on above: Performed By: #### B 2 GLYPROT XOCHITL, FACTOR II DNA, HOMOCYS PL, FACV LEIDM, PROCF, LIPA, LUPANTCOAG, PROT S FUN, METH, CARDIO GMA, AT3 DEF PROFILE #### [facility] , #### [id number], CBC, PHOS, BMP, FE PRO, MG #### [address] Kate Ag Negativeon 09-12-19 Kate Ag Negative Negative Normal Negative [facility] Comment on above: Result Comment: This is a duplicate Kate SARS Antigen (ADORE) result to be used for statistical tracking purpose only. PERFORMED BY: [place] [address] PATHOLOGIST [employer]ENCE [employer]IC[employer] TOBY GRACIA M.D. Performed By: #### B 2 GLYPROT XOCHITL, FACTOR II DNA, HOMOCYS PL, FACV LEIDM, PROCF, LIPA, LUPANTCOAG, PROT S FUN, METH, CARDIO GMA, AT3 DEF PROFILE #### [facility] , #### [id number], CBC, PHOS, BMP, FE PRO, MG #### [address] Troponin I(TnI)on 09-11-2020 Troponin I.cardiac [Mass/Vol] ng/mL Normal 0-0.02 [facility] Comment on above: Result Comment: SHYLA AL Cut off value > or equal to 0.03 ng/mL in conjunction with clinical conditions of myocardial infarction. ([email or web address]) PERFORMED BY: [place] [address] PATHOLOGIST CHIEF SCIENCE OFFICER TOBY GRACIA M.D. Performed By: #### B 2 GLYPROT XOCHITL, FACTOR II DNA, HOMOCYS PL, FACV LEIDM, PROCF, LIPA, LUPANTCOAG, PROT S FUN, METH, CARDIO GMA, AT3 DEF PROFILE #### [facility] , #### [id number], CBC, PHOS, BMP, FE PRO, MG #### [facility] [address] [place] [address] Urinalysison 09-11-2020 Appearance (U) Clear Normal Clear [facility] Comment on above: Order Comment: PT IS NON FASTING Performed By: #### B 2 GLYPROT XOCHITL, FACTOR II DNA, HOMOCYS PL, FACV LEIDM, PROCF, LIPA, LUPANTCOAG, PROT S FUN, METH, CARDIO GMA, AT3 DEF PROFILE #### [facility] , #### [id number], CBC, PHOS, BMP, FE PRO, MG #### [facility] [address] [place] [address] Bilirubin,Urine Negative Normal Negative [facility] Comment on above: Order Comment: PT IS NON FASTING Performed By: #### B 2 GLYPROT XOCHITL, FACTOR II DNA, HOMOCYS PL, FACV LEIDM, PROCF, LIPA, LUPANTCOAG, PROT S FUN, METH, CARDIO GMA, AT3 DEF PROFILE #### [facility] , #### [id number], CBC, PHOS, BMP, FE PRO, MG #### [facility] [address] [place] [address] [place] Color (U) Yellow Normal Yellow [facility] Comment on above: Order Comment: PT IS NON FASTING Performed By: #### B 2 GLYPROT XOCHITL, FACTOR II DNA, HOMOCYS PL, FACV LEIDM, PROCF, LIPA, LUPANTCOAG, PROT S FUN, METH, CARDIO GMA, AT3 DEF PROFILE #### [facility] , #### [id number], CBC, PHOS, BMP, FE PRO, MG #### [facility] [address] [place] [address] [place] Glucose Ql (U) Normal Normal Normal [facility] Comment on above: Order Comment: PT IS NON FASTING Performed By: #### B 2 GLYPROT XOCHITL, FACTOR II DNA, HOMOCYS PL, FACV LEIDM, PROCF, LIPA, LUPANTCOAG, PROT S FUN, METH, CARDIO GMA, AT3 DEF PROFILE #### [facility] , #### [id number], CBC, PHOS, BMP, FE PRO, MG #### [address] Ketones Ql (U) Negative Normal Negative [facility] Comment on above: Order Comment: PT IS NON FASTING Performed By: #### B 2 GLYPROT XOCHITL, FACTOR II DNA, HOMOCYS PL, FACV LEIDM, PROCF, LIPA, LUPANTCOAG, PROT S FUN, METH, CARDIO GMA, AT3 DEF PROFILE #### [facility] , #### [id number], CBC, PHOS, BMP, FE PRO, MG #### [address] Leukocyte esterase Test strip Ql (U) Negative Normal Negative [facility] Comment on above: Order Comment: PT IS NON FASTING Performed By: #### B 2 GLYPROT XOCHITL, FACTOR II DNA, HOMOCYS PL, FACV LEIDM, PROCF, LIPA, LUPANTCOAG, PROT S FUN, METH, CARDIO GMA, AT3 DEF PROFILE #### [facility] , #### [id number], CBC, PHOS, BMP, FE PRO, MG #### [address] Nitrite,Urine Negative Normal Negative [facility] Comment on above: Order Comment: PT IS NON FASTING Performed By: #### B 2 GLYPROT XOCHITL, FACTOR II DNA, HOMOCYS PL, FACV LEIDM, PROCF, LIPA, LUPANTCOAG, PROT S FUN, METH, CARDIO GMA, AT3 DEF PROFILE #### [facility] , #### [id number], CBC, PHOS, BMP, FE PRO, MG #### [address] Occult Blood,Urine Negative Normal Negative [facility] Comment on above: Order Comment: PT IS NON FASTING Result Comment: PERF ORMED BY: [place] [address] PATHOLOGIST CHIEF SCIENCE OFFICER TOBY GRACIA M.D. Performed By: #### B 2 GLYPROT XOCHITL, FACTOR II DNA, HOMOCYS PL, FACV LEIDM, PROCF, LIPA, LUPANTCOAG, PROT S FUN, METH, CARDIO GMA, AT3 DEF PROFILE #### [facility] , #### [id number], CBC, PHOS, BMP, FE PRO, MG #### [facility] [address] [place] [address] pH (U) 5.0 [pH] Normal 5.0-9.0 [facility] Comment on above: Order Comment: PT IS NON FASTING Performed By: #### B 2 GLYPROT XOCHITL, FACTOR II DNA, HOMOCYS PL, FACV LEIDM, PROCF, LIPA, LUPANTCOAG, PROT S FUN, METH, CARDIO GMA, AT3 DEF PROFILE #### [facility] , #### [id number], CBC, PHOS, BMP, FE PRO, MG #### [facility] [address] [place] [address] Protein,Urine Negative Normal Negative [facility] Comment on above: Order Comment: PT IS NON FASTING Performed By: #### B 2 GLYPROT XOCHITL, FACTOR II DNA, HOMOCYS PL, FACV LEIDM, PROCF, LIPA, LUPANTCOAG, PROT S FUN, METH, CARDIO GMA, AT3 DEF PROFILE #### [facility] , #### [id number], CBC, PHOS, BMP, FE PRO, MG #### [facility] [address] [place] [address] Specificy [place],Urine 1.026 Normal 1.001-1.030 [facility] Comment on above: Order Comment: PT IS NON FASTING Performed By: #### B 2 GLYPROT XOCHITL, FACTOR II DNA, HOMOCYS PL, FACV LEIDM, PROCF, LIPA, LUPANTCOAG, PROT S FUN, METH, CARDIO GMA, AT3 DEF PROFILE #### [facility] , #### [id number], CBC, PHOS, BMP, FE PRO, MG #### [address] Urobilinogen,Urin e Normal Normal Normal [facility] Comment on above: Order Comment: PT IS NON FASTING Performed By: #### B 2 GLYPROT XOCIHTL, FACTOR II DNA, HOMOCYS PL, FACV LEIDM, PROCF, LIPA, LUPANTCOAG, PROT S FUN, METH, CARDIO GMA, AT3 DEF PROFILE #### [facility] , #### [id number], CBC, PHOS, BMP, FE PRO, MG #### [address] XR hand BI 3Von 07-26-2020 XR hand BI 3V [place] [address] XRay Report Signed Patient: Don Elkins MR#: [id number] : 1950 Acct:[id number] Age/Sex: 69 / M ADM Date: 07/26/20 Loc: [facility] Room: Type: [facility] Attending Dr: Tamiko Rivera MD Ordering Provider: [...] Thompson Jr., M.D.07/26/2020 1:18 PM Dictation Location: [place] [address] Transcribed By: [facility] 07/26/201317 Dictated By: Cale Thompson Jr, MD 07/26/201310 Signed By: 07/26/20 1318 Normal [facility] Anticardiolipin IgG/M/A, Qno n 07-18-2020 Anticardiolipin Ab, IgA,Qn <9 Normal 0-11 [facility] Comment on above: Order Comment: PT IS NON FASTING Result Comment: Nega tive: <12 Indeterminate: 12 - 20 Low-Med Positive: >20 - 80 High Positive: >80 Performed at: [facility] [id number] Personal Chef: Prakash Barbour PhD, Phone: [phone] Performed By: #### B 2 GLYPROT XOCHITL, FACTOR II DNA, HOMOCYS PL, FACV LEIDM, PROCF, LIPA, LUPANTCOAG, PROT S FUN, METH, CARDIO GMA, AT3 DEF PROFILE #### [facility] , #### [id number], CBC, PHOS, BMP, FE PRO, MG #### [facility] [address] [place] [address] Anticardiolipin Ab, IgG,Qn <9 Normal 0-14 [facility] Comment on above: Order Comment: PT IS NON FASTING Result Comment: Nega tive: <15 Indeterminate: 15 - 20 Low-Med Positive: >20 - 80 High Positive: >80 Performed By: #### B 2 GLYPROT XOCHITL, FACTOR II DNA, HOMOCYS PL, FACV LEIDM, PROCF, LIPA, LUPANTCOAG, PROT S FUN, METH, CARDIO GMA, AT3 DEF PROFILE #### [facility] , #### [id number], CBC, PHOS, BMP, FE PRO, MG #### [facility] [address] [place] [address] [place] Anticardiolipin Ab, IgM,Qn <9 Normal 0-12 [facility] Comment on above: Order Comment: PT IS NON FASTING Result Comment: Nega tive: <13 Indeterminate: 13 - 20 Low-Med Positive: >20 - 80 High Positive: >80 Performed By: #### B 2 GLYPROT XOCHITL, FACTOR II DNA, HOMOCYS PL, FACV LEIDM, PROCF, LIPA, LUPANTCOAG, PROT S FUN, METH, CARDIO GMA, AT3 DEF PROFILE #### [facility] , #### [id number], CBC, PHOS, BMP, FE PRO, MG #### [facility] [address] Antithrombin Deficiency Prof on 07-18-2020 Anti-Thrombin III Antigen 85 % Normal 72-124 [facility] Comment on above: Order [...] AT3 DEF PROFILE #### [facility] , #### [id number], CBC, PHOS, BMP, FE PRO, MG #### [facility] [address] [place] [id number] [facility] Antithrombin Activity 106 % Normal 75-135 [facility] Comment on above: Order [...] AT3 DEF PROFILE #### [facility] , #### [id number], CBC, PHOS, BMP, FE PRO, MG #### [facility] [address] Basic Metabolic Panelon 03-0 Calcium [Mass/Vol] 8.8 mg/dL Normal 8.2-10.2 [facility] Comment on above: Order Comment: PT IS NON FASTING Performed By: #### B 2 GLYPROT XOCHITL, FACTOR II DNA, HOMOCYS PL, FACV LEIDM, PROCF, LIPA, LUPANTCOAG, PROT S FUN, METH, CARDIO GMA, AT3 DEF PROFILE #### [facility] , #### [id number], CBC, PHOS, BMP, FE PRO, MG #### [facility] [address] [place] [address] Chloride [Moles/Vol] 96 mmol/L Normal 95-114 [facility] Comment on above: Order Comment: PT IS NON FASTING Performed By: #### B 2 GLYPROT XOCHITL, FACTOR II DNA, HOMOCYS PL, FACV LEIDM, PROCF, LIPA, LUPANTCOAG, PROT S FUN, METH, CARDIO GMA, AT3 DEF PROFILE #### [facility] , #### [id number], CBC, PHOS, BMP, FE PRO, MG #### [address] CO2 [Moles/Vol] 23.9 mmol/L Normal 22.0-30.0 [facility] Comment on above: Order Comment: PT IS NON FASTING Performed By: #### B 2 GLYPROT XOCHITL, FACTOR II DNA, HOMOCYS PL, FACV LEIDM, PROCF, LIPA, LUPANTCOAG, PROT S FUN, METH, CARDIO GMA, AT3 DEF PROFILE #### [facility] , #### [id number], CBC, PHOS, BMP, FE PRO, MG #### [facility] [address] [place] [address] Creatinine [Mass/Vol] 1.31 mg/dL High 0.64-1.27 [facility] Comment on above: Order Comment: PT IS NON FASTING Performed By: #### B 2 GLYPROT XOCHITL, FACTOR II DNA, HOMOCYS PL, FACV LEIDM, PROCF, LIPA, LUPANTCOAG, PROT S FUN, METH, CARDIO GMA, AT3 DEF PROFILE #### [facility] , #### [id number], CBC, PHOS, BMP, FE PRO, MG #### [facility] [address] [place] [id number] [place] Estimated GFR ( Gabriela > 60 [facility] Comment on above: Order Comment: PT IS NON FASTING Result Comment: GFR estimated reference range: According to KDOQI guidelines, <60 ml/min/1.73m2 is sufficient to diagnose a patient with chronic kidney disease. Performed By: #### B 2 GLYPROT XOCHITL, FACTOR II DNA, HOMOCYS PL, FACV LEIDM, PROCF, LIPA, LUPANTCOAG, PROT S FUN, METH, CARDIO GMA, AT3 DEF PROFILE #### [facility] , #### [id number], CBC, PHOS, BMP, FE PRO, MG #### [facility] [address] [place] [address] [place] Estimated GFR (Non- Am 54 [facility] Comment on above: Order Comment: PT IS NON FASTING Performed By: #### B 2 GLYPROT XOCHITL, FACTOR II DNA, HOMOCYS PL, FACV LEIDM, PROCF, LIPA, LUPANTCOAG, PROT S FUN, METH, CARDIO GMA, AT3 DEF PROFILE #### [facility] , #### [id number], CBC, PHOS, BMP, FE PRO, MG #### [facility] [address] [place] [address] [place] Glucose [Mass/Vol] 336 mg/dL High 70-100 [facility] Comment on above: Order Comment: PT IS NON FASTING Result Comment: Felch Glucose Reference Range is dependent on time and content of last meal. Glucose of more than 200 mg/dL in a nonstressed, ambulatory subject supports the diagnosis of Diabetes Mellitus. ADA recommended reference range Performed By: #### B 2 GLYPROT XOCHITL, FACTOR II DNA, HOMOCYS PL, FACV LEIDM, PROCF, LIPA, LUPANTCOAG, PROT S FUN, METH, CARDIO GMA, AT3 DEF PROFILE #### [facility] , #### [id number], CBC, PHOS, BMP, FE PRO, MG #### [address] Potassium [Moles/Vol] 4.7 mmol/L Normal 3.5-5.1 [facility] Comment on above: Order Comment: PT IS NON FASTING Performed By: #### B 2 GLYPROT XOCHITL, FACTOR II DNA, HOMOCYS PL, FACV LEIDM, PROCF, LIPA, LUPANTCOAG, PROT S FUN, METH, CARDIO GMA, AT3 DEF PROFILE #### [facility] , #### [id number], CBC, PHOS, BMP, FE PRO, MG #### [address] Sodium [Moles/Vol] 131 mmol/L Low 136-146 [facility] Comment on above: Order Comment: PT IS NON FASTING Performed By: #### B 2 GLYPROT XOCHITL, FACTOR II DNA, HOMOCYS PL, FACV LEIDM, PROCF, LIPA, LUPANTCOAG, PROT S FUN, METH, CARDIO GMA, AT3 DEF PROFILE #### [facility] , #### [id number], CBC, PHOS, BMP, FE PRO, MG #### [address] Urea nitrogen [Mass/Vol] 22 mg/dL Normal 9-23 [facility] Comment on above: Order Comment: PT IS NON FASTING Performed By: #### B 2 GLYPROT XOCHITL, FACTOR II DNA, HOMOCYS PL, FACV LEIDM, PROCF, LIPA, LUPANTCOAG, PROT S FUN, METH, CARDIO GMA, AT3 DEF PROFILE #### [facility] , #### [id number], CBC, PHOS, BMP, FE PRO, MG #### [address] Beta 2 Glycoprotein I Ab IgG Kenna 03-02-2021 Beta 2 Glycoprotein I Ab, IgA <9 Normal 0-25 [facility] Comment on above: Order [...] AT3 DEF PROFILE #### [facility] , #### [id number], CBC, PHOS, BMP, FE PRO, MG #### [facility] [address] [place] [address] [place] Beta 2 Glycoprotein I Ab, IgG <9 Normal 0-20 [facility] Comment on above: Order [...] AT3 DEF PROFILE #### [facility] , #### [id number], CBC, PHOS, BMP, FE PRO, MG #### [facility] [address] [place] [address] [place] Beta 2 Glycoprotein I Ab, IgM <9 Normal 0-32 [facility] Comment on above: Order Comment: PT IS NON FASTING Result Comment: Resu lt Units: GPI IgM units The reference interval reflects a 3SD or 99th percentile interval, which is thought to represent a potentially clinically significant result in accordance with the International Consensus Statement on the classification criteria for definitive antiphospholipid syndrome (APS). J Thromb Haem 2006;4:295-306. Performed at: [address] [id number] Personal Chef: Meet Parish MD, Phone: [phone] Performed By: #### B 2 GLYPROT XOCHITL, FACTOR II DNA, HOMOCYS PL, FACV LEIDM, PROCF, LIPA, LUPANTCOAG, PROT S FUN, METH, CARDIO GMA, AT3 DEF PROFILE #### [facility] , #### [id number], CBC, PHOS, BMP, FE PRO, MG #### [address] Complete Blood Count Auto Di ffon 07-18-2020 Basophils (Bld) [#/Vol] 0.1 10*3/uL Normal 0.0-0.2 [facility] Comment on above: Order Comment: PT IS NON FASTING Result Comment: PERF ORMED BY: [place] [address] PATHOLOGIST CHIEF SCIENCE OFFICER TOBY GRACIA M.D. Performed By: #### B 2 GLYPROT XOCHITL, FACTOR II DNA, HOMOCYS PL, FACV LEIDM, PROCF, LIPA, LUPANTCOAG, PROT S FUN, METH, CARDIO GMA, AT3 DEF PROFILE #### [facility] , #### [id number], CBC, PHOS, BMP, FE PRO, MG #### [address] Basophils/100 WBC (Bld) 0.8 % Normal . [facility] Comment on above: Order Comment: PT IS NON FASTING Performed By: #### B 2 GLYPROT XOCHITL, FACTOR II DNA, HOMOCYS PL, FACV LEIDM, PROCF, LIPA, LUPANTCOAG, PROT S FUN, METH, CARDIO GMA, AT3 DEF PROFILE #### [facility] , #### [id number], CBC, PHOS, BMP, FE PRO, MG #### [facility] [address] [place] [address] [place] Eosinophils (Bld) [#/Vol] 0.2 10*3/uL Normal 0.0-0.45 [facility] Comment on above: Order Comment: PT IS NON FASTING Performed By: #### B 2 GLYPROT XOCHITL, FACTOR II DNA, HOMOCYS PL, FACV LEIDM, PROCF, LIPA, LUPANTCOAG, PROT S FUN, METH, CARDIO GMA, AT3 DEF PROFILE #### [facility] , #### [id number], CBC, PHOS, BMP, FE PRO, MG #### [facility] [address] Eosinophils/100 WBC (Bld) 2.2 % Normal . [facility] Comment on above: Order Comment: PT IS NON FASTING Performed By: #### B 2 GLYPROT XOCHITL, FACTOR II DNA, HOMOCYS PL, FACV LEIDM, PROCF, LIPA, LUPANTCOAG, PROT S FUN, METH, CARDIO GMA, AT3 DEF PROFILE #### [facility] , #### [id number], CBC, PHOS, BMP, FE PRO, MG #### [address] Erythrocyte distribution width (RBC) [Ratio] 12.6 % Normal 12.0-14.8 [facility] Comment on above: Order Comment: PT IS NON FASTING Performed By: #### B 2 GLYPROT XOCHITL, FACTOR II DNA, HOMOCYS PL, FACV LEIDM, PROCF, LIPA, LUPANTCOAG, PROT S FUN, METH, CARDIO GMA, AT3 DEF PROFILE #### [facility] , #### [id number], CBC, PHOS, BMP, FE PRO, MG #### [facility] [address] [place] [address] Hematocrit (Bld) [Volume fraction] 40.3 % Normal 38.8-50.0 [facility] Comment on above: Order Comment: PT IS NON FASTING Performed By: #### B 2 GLYPROT XOCHITL, FACTOR II DNA, HOMOCYS PL, FACV LEIDM, PROCF, LIPA, LUPANTCOAG, PROT S FUN, METH, CARDIO GMA, AT3 DEF PROFILE #### [facility] , #### [id number], CBC, PHOS, BMP, FE PRO, MG #### [address] Hemoglobin (Bld) [Mass/Vol] 13.9 g/dL Normal 13.0-17.0 [facility] Comment on above: Order Comment: PT IS NON FASTING Performed By: #### B 2 GLYPROT XOCHITL, FACTOR II DNA, HOMOCYS PL, FACV LEIDM, PROCF, LIPA, LUPANTCOAG, PROT S FUN, METH, CARDIO GMA, AT3 DEF PROFILE #### [facility] , #### [id number], CBC, PHOS, BMP, FE PRO, MG #### [address] Lymphocytes (Bld) [#/Vol] 2.0 10*3/uL Normal 1.00-4.8 [facility] Comment on above: Order Comment: PT IS NON FASTING Performed By: #### B 2 GLYPROT XOCHITL, FACTOR II DNA, HOMOCYS PL, FACV LEIDM, PROCF, LIPA, LUPANTCOAG, PROT S FUN, METH, CARDIO GMA, AT3 DEF PROFILE #### [facility] , #### [id number], CBC, PHOS, BMP, FE PRO, MG #### [address] Lymphocytes/100 WBC (Bld) 21.0 % Normal . [facility] Comment on above: Order Comment: PT IS NON FASTING Performed By: #### B 2 GLYPROT XOCHITL, FACTOR II DNA, HOMOCYS PL, FACV LEIDM, PROCF, LIPA, LUPANTCOAG, PROT S FUN, METH, CARDIO GMA, AT3 DEF PROFILE #### [facility] , #### [id number], CBC, PHOS, BMP, FE PRO, MG #### [place] [address] [place] MCH (RBC) [Entitic mass] 31.4 pg Normal 27.5-35.2 [facility] Comment on above: Order Comment: PT IS NON FASTING Performed By: #### B 2 GLYPROT XOCHITL, FACTOR II DNA, HOMOCYS PL, FACV LEIDM, PROCF, LIPA, LUPANTCOAG, PROT S FUN, METH, CARDIO GMA, AT3 DEF PROFILE #### [facility] , #### [id number], CBC, PHOS, BMP, FE PRO, MG #### [facility] [address] MCV (RBC) [Entitic vol] 91.1 fL Normal 83.5-101 [facility] Comment on above: Order Comment: PT IS NON FASTING Performed By: #### B 2 GLYPROT XOCHITL, FACTOR II DNA, HOMOCYS PL, FACV LEIDM, PROCF, LIPA, LUPANTCOAG, PROT S FUN, METH, CARDIO GMA, AT3 DEF PROFILE #### [facility] , #### [id number], CBC, PHOS, BMP, FE PRO, MG #### [facility] [address] Mean Corpuscular HGB Conc 34.5 g/dL Normal 32.5-35.6 [facility] Comment on above: Order Comment: PT IS NON FASTING Performed By: #### B 2 GLYPROT XOCHITL, FACTOR II DNA, HOMOCYS PL, FACV LEIDM, PROCF, LIPA, LUPANTCOAG, PROT S FUN, METH, CARDIO GMA, AT3 DEF PROFILE #### [facility] , #### [id number], CBC, PHOS, BMP, FE PRO, MG #### [facility] [address] Monocytes (Bld) [#/Vol] 0.7 10*3/uL Normal 0.0-0.8 [facility] Comment on above: Order Comment: PT IS NON FASTING Performed By: #### B 2 GLYPROT XOCHITL, FACTOR II DNA, HOMOCYS PL, FACV LEIDM, PROCF, LIPA, LUPANTCOAG, PROT S FUN, METH, CARDIO GMA, AT3 DEF PROFILE #### [facility] , #### [id number], CBC, PHOS, BMP, FE PRO, MG #### [facility] [address] [place] [address] [place] Monocytes/100 WBC (Bld) 7.0 % Normal . [facility] Comment on above: Order Comment: PT IS NON FASTING Performed By: #### B 2 GLYPROT XOCHITL, FACTOR II DNA, HOMOCYS PL, FACV LEIDM, PROCF, LIPA, LUPANTCOAG, PROT S FUN, METH, CARDIO GMA, AT3 DEF PROFILE #### [facility] , #### [id number], CBC, PHOS, BMP, FE PRO, MG #### [place] [address] [place] Neutrophils (Bld) [#/Vol] 6.7 10*3/uL Normal 1.8-7.7 [facility] Comment on above: Order Comment: PT IS NON FASTING Performed By: #### B 2 GLYPROT XOCHITL, FACTOR II DNA, HOMOCYS PL, FACV LEIDM, PROCF, LIPA, LUPANTCOAG, PROT S FUN, METH, CARDIO GMA, AT3 DEF PROFILE #### [facility] , #### [id number], CBC, PHOS, BMP, FE PRO, MG #### [facility] [address] [place] [address] [place] Neutrophils/100 WBC (Bld) 69.0 % Normal . [facility] Comment on above: Order Comment: PT IS NON FASTING Performed By: #### B 2 GLYPROT XOCHITL, FACTOR II DNA, HOMOCYS PL, FACV LEIDM, PROCF, LIPA, LUPANTCOAG, PROT S FUN, METH, CARDIO GMA, AT3 DEF PROFILE #### [facility] , #### [id number], CBC, PHOS, BMP, FE PRO, MG #### [facility] [address] [place] [address] Nucleated RBC/100 WBC (Bld) [Ratio] 0.2 % Normal 0-0.5 [facility] Comment on above: Order Comment: PT IS NON FASTING Performed By: #### B 2 GLYPROT XOCHITL, FACTOR II DNA, HOMOCYS PL, FACV LEIDM, PROCF, LIPA, LUPANTCOAG, PROT S FUN, METH, CARDIO GMA, AT3 DEF PROFILE #### [facility] , #### [id number], CBC, PHOS, BMP, FE PRO, MG #### [facility] [address] [place] [address] Platelet mean volume (Bld) [Entitic vol] 10.7 fL High 6.6-10.1 [facility] Comment on above: Order Comment: PT IS NON FASTING Performed By: #### B 2 GLYPROT XOCHITL, FACTOR II DNA, HOMOCYS PL, FACV LEIDM, PROCF, LIPA, LUPANTCOAG, PROT S FUN, METH, CARDIO GMA, AT3 DEF PROFILE #### [facility] , #### [id number], CBC, PHOS, BMP, FE PRO, MG #### [facility] [address] [place] [address] Platelets (Bld) [#/Vol] 201 10*3/uL Normal 150-450 [facility] Comment on above: Order Comment: PT IS NON FASTING Performed By: #### B 2 GLYPROT XOCHITL, FACTOR II DNA, HOMOCYS PL, FACV LEIDM, PROCF, LIPA, LUPANTCOAG, PROT S FUN, METH, CARDIO GMA, AT3 DEF PROFILE #### [facility] , #### [id number], CBC, PHOS, BMP, FE PRO, MG #### [facility] [address] [place] [address] RBC (Bld) [#/Vol] 4.42 10*6/uL Normal 3.90-5.60 [facility] Comment on above: Order Comment: PT IS NON FASTING Performed By: #### B 2 GLYPROT XOCHITL, FACTOR II DNA, HOMOCYS PL, FACV LEIDM, PROCF, LIPA, LUPANTCOAG, PROT S FUN, METH, CARDIO GMA, AT3 DEF PROFILE #### [facility] , #### [id number], CBC, PHOS, BMP, FE PRO, MG #### [address] WBC (Bld) [#/Vol] 9.7 10*3/uL Normal 4.5-11.0 [facility] Comment on above: Order Comment: PT IS NON FASTING Performed By: #### B 2 GLYPROT XOCHITL, FACTOR II DNA, HOMOCYS PL, FACV LEIDM, PROCF, LIPA, LUPANTCOAG, PROT S FUN, METH, CARDIO GMA, AT3 DEF PROFILE #### [facility] , #### [id number], CBC, PHOS, BMP, FE PRO, MG #### [address] FE PROon 07-18-2020 % Iron Saturation 27.0 % Normal 20-50 [facility] Comment on above: Order Comment: PT IS NON FASTING Performed By: #### B 2 GLYPROT XOCHITL, FACTOR II DNA, HOMOCYS PL, FACV LEIDM, PROCF, LIPA, LUPANTCOAG, PROT S FUN, METH, CARDIO GMA, AT3 DEF PROFILE #### [facility] , #### [id number], CBC, PHOS, BMP, FE PRO, MG #### [address] Ferritin [Mass/Vol] 261.0 ng/mL Normal 23.9-336.2 [facility] Comment on above: Order Comment: PT IS NON FASTING Performed By: #### B 2 GLYPROT XOCHITL, FACTOR II DNA, HOMOCYS PL, FACV LEIDM, PROCF, LIPA, LUPANTCOAG, PROT S FUN, METH, CARDIO GMA, AT3 DEF PROFILE #### [facility] , #### [id number], CBC, PHOS, BMP, FE PRO, MG #### [facility] [address] Iron [Mass/Vol] 108 ug/dL Normal 40-160 [facility] Comment on above: Order Comment: PT IS NON FASTING Performed By: #### B 2 GLYPROT XOCHITL, FACTOR II DNA, HOMOCYS PL, FACV LEIDM, PROCF, LIPA, LUPANTCOAG, PROT S FUN, METH, CARDIO GMA, AT3 DEF PROFILE #### [facility] , #### [id number], CBC, PHOS, BMP, FE PRO, MG #### [facility] [address] [place] [address] Total Iron Binding Capacity 398 ug/dL Normal 255-450 [facility] Comment on above: Order Comment: PT IS NON FASTING Performed By: #### B 2 GLYPROT XOCHITL, FACTOR II DNA, HOMOCYS PL, FACV LEIDM, PROCF, LIPA, LUPANTCOAG, PROT S FUN, METH, CARDIO GMA, AT3 DEF PROFILE #### [facility] , #### [id number], CBC, PHOS, BMP, FE PRO, MG #### [facility] [address] [place] [address] Transferrin [Mass/Vol] 284 mg/dL Normal 180-380 [facility] Comment on above: Order Comment: PT IS NON FASTING Performed By: #### B 2 GLYPROT XOCHITL, FACTOR II DNA, HOMOCYS PL, FACV LEIDM, PROCF, LIPA, LUPANTCOAG, PROT S FUN, METH, CARDIO GMA, AT3 DEF PROFILE #### [facility] , #### [id number], CBC, PHOS, BMP, FE PRO, MG #### [facility] [address] [place] [address] Factor II DNA Analysison Factor II, DNA Analysis Normal . [facility] Comment on above: Order Comment: PT IS NON FASTING Result Comment: NEGA TIVE No mutation identified. Comment: A point mutation ([id number]) in the factor II (prothrombin) gene is [...] mutations. This assay detects only the prothrombin [id number] mutation and does not measure genetic abnormalities [...] health care providers to discuss results at [phone]). Methodology: DNA analysis of the Factor II gene was performed by PCR amplification followed by restriction analysis. The diagnostic sensitivity is >99% for both. All the tests must be combined with clinical information for the most accurate interpretation. Molecular-based testing is highly accurate, but as in any laboratory test, diagnostic errors may occur. This test was developed and its performance characteristics determined by [facility]. It has not been cleared or approved by the Food and Drug Administration. Poort SR, et al. Blood. 1996; 88:4487-5179. Arabella GILLIAM. Circulation. 2004; 110:e15-e18. Wanda I, et al. Arterioscler Thromb Vasc Biol. 1999; 19:700-703. Oanh Preciado, PhD, [facility] Marj Rosales, PhD, [facility] Mar Hernández, PhD, [facility] Ibeth Turk, PhD, [facility] Bree Arroyo, PhD, [facility] Amado Sanchez, PhD, FACMG Performed at: [facility] [address] [place], [place] [id number] Personal Chef: Sabra Tariq [facility], Phone: [phone] PERFORMED BY: [place] [address] PATHOLOGIST CHIEF SCIENCE OFFICER TOBY GRACIA M.D. Performed By: #### B 2 GLYPROT XOCHITL, FACTOR II DNA, HOMOCYS PL, FACV LEIDM, PROCF, LIPA, LUPANTCOAG, PROT S FUN, METH, CARDIO GMA, AT3 DEF PROFILE #### [facility] , #### [id number], CBC, PHOS, BMP, FE PRO, MG #### [address] Factor V Leiden Mutationon 0 07-18-2020 Factor V Leiden Normal . [facility] Comment on above: Order [...] the workup for venous thrombosis include the [id number] mutation in the factor II (prothrombin) gene, protein S and C deficiency, and antithrombin deficiencies. Anticardiolipin antibody and lupus anticoagulant analysis may be appropriate for certain patients, as well as homocysteine levels. Contact your local [facility] for information on how to order additional testing if desired. Genetic counselors are available for health care providers to discuss results at [phone] [phone] Methodology: DNA analysis of the Factor V gene was performed by allele- specific PCR. The diagnostic sensitivity and specificity is >99% for both. Molecular-based testing is highly accurate, but as in any laboratory test, diagnostic errors may occur. All test results must be combined with clinical information for the most accurate interpretation. This test was developed and its performance characteristics determined by [employer]. It has not been cleared or approved by the Food and Drug Administration. References: Deepa Orourke (1995). Clin Lab Med 16:169-186. Oanh Preciado, PhD, [facility] Marj Rosales, PhD, [facility] Mar Hernández, PhD, [facility] Ibeth Turk, PhD, [facility] Bree Arroyo, PhD, FAC Amado Sanchez PhD, FAC Performed By: #### B 2 GLYPROT XOCHITL, FACTOR II DNA, HOMOCYS PL, FACV LEIDM, PROCF, LIPA, LUPANTCOAG, PROT S FUN, METH, CARDIO GMA, AT3 DEF PROFILE #### [facility] , #### [id number], CBC, PHOS, BMP, FE PRO, MG #### [address] Homocysteine, Plasma/Serumon 07-18-2020 Homocysteine, Plasma/Serum 9.6 umol/L Normal 0.0-17.2 [facility] Comment on above: Order Comment: PT IS NON FASTING Result Comment: Perf ormed at: [facility] [address] [id number] Personal Chef: Prakash Barbour PhD, Phone: [phone] Performed By: #### B 2 GLYPROT XOCHITL, FACTOR II DNA, HOMOCYS PL, FACV LEIDM, PROCF, LIPA, LUPANTCOAG, PROT S FUN, METH, CARDIO GMA, AT3 DEF PROFILE #### [facility] , #### [id number], CBC, PHOS, BMP, FE PRO, MG #### [facility] [address] Lipoprotein (a)on 07-18-2020 Lipoprotein a [Mass/Vol] mg/dL Normal <75.0 [facility] Comment on above: Order Comment: PT IS NON FASTING Result Comment: Re sults verified by repeat testing Note: Values greater than or equal to 75.0 nmol/L may indicate an independent risk factor for CHD, but must be evaluated with caution when applied to non- populations due to the influence of genetic factors on Lp(a) across ethnicities. Performed at: [address] [id number] Personal Chef: Prakash Barbour PhD, Phone: [phone] Performed By: #### B 2 GLYPROT XOCHITL, FACTOR II DNA, HOMOCYS PL, FACV LEIDM, PROCF, LIPA, LUPANTCOAG, PROT S FUN, METH, CARDIO GMA, AT3 DEF PROFILE #### [facility] , #### [id number], CBC, PHOS, BMP, FE PRO, MG #### [address] Lupus Anticoagulant Compon 0 07-18-2020 Dilute Prothrombin Time (dPt) 74.8 High 0.0-55.0 [facility] Comment on above: Order Comment: PT IS NON FASTING Performed By: #### B 2 GLYPROT XOCHITL, FACTOR II DNA, HOMOCYS PL, FACV LEIDM, PROCF, LIPA, LUPANTCOAG, PROT S FUN, METH, CARDIO GMA, AT3 DEF PROFILE #### [facility] , #### [id number], CBC, PHOS, BMP, FE PRO, MG #### [address] dPT Confirm Ratio 0.95 Normal 0.00-1.40 [facility] Comment on above: Order Comment: PT IS NON FASTING Performed By: #### B 2 GLYPROT XOCHITL, FACTOR II DNA, HOMOCYS PL, FACV LEIDM, PROCF, LIPA, LUPANTCOAG, PROT S FUN, METH, CARDIO GMA, AT3 DEF PROFILE #### [facility] , #### [id number], CBC, PHOS, BMP, FE PRO, MG #### [address] DRVVT Lupus 41.8 Normal 0.0-47.0 [facility] Comment on above: Order Comment: PT IS NON FASTING Performed By: #### B 2 GLYPROT XOCHITL, FACTOR II DNA, HOMOCYS PL, FACV LEIDM, PROCF, LIPA, LUPANTCOAG, PROT S FUN, METH, CARDIO GMA, AT3 DEF PROFILE #### [facility] , #### [id number], CBC, PHOS, BMP, FE PRO, MG #### [address] Interpretation Comment: Normal . [facility] Comment on above: Order Comment: PT IS NON FASTING Result Comment: No l upus anticoagulant was detected. However, the dPT is markedly extended, as can be seen in patients receiving oral anticoagulant therapy (OAT). In general, OAT can reduce the accuracy of lupus anticoagulant testing and results obtain for patients receiving OAT should be interpreted with caution. Performed at: [address] [id number] Personal Chef: Meet Parish MD, Phone: [phone] Performed By: #### B 2 GLYPROT XOCHITL, FACTOR II DNA, HOMOCYS PL, FACV LEIDM, PROCF, LIPA, LUPANTCOAG, PROT S FUN, METH, CARDIO GMA, AT3 DEF PROFILE #### [facility] , #### [id number], CBC, PHOS, BMP, FE PRO, MG #### [facility] [address] [place] [address] PTT-LA 32.2 Normal 0.0-51.9 [facility] Comment on above: Order Comment: PT IS NON FASTING Performed By: #### B 2 GLYPROT XOCHITL, FACTOR II DNA, HOMOCYS PL, FACV LEIDM, PROCF, LIPA, LUPANTCOAG, PROT S FUN, METH, CARDIO GMA, AT3 DEF PROFILE #### [facility] , #### [id number], CBC, PHOS, BMP, FE PRO, MG #### [address] [place] [address] [place] Thrombin Time 18.3 Normal 0.0-23.0 [facility] Comment on above: Order Comment: PT IS NON FASTING Performed By: #### B 2 GLYPROT XOCHITL, FACTOR II DNA, HOMOCYS PL, FACV LEIDM, PROCF, LIPA, LUPANTCOAG, PROT S FUN, METH, CARDIO GMA, AT3 DEF PROFILE #### [facility] , #### [id number], CBC, PHOS, BMP, FE PRO, MG #### [address] Magnesiumon 07-18-2020 Magnesium [Mass/Vol] 1.9 mg/dL Normal 1.6-2.6 [facility] Comment on above: Order Comment: PT IS NON FASTING Performed By: #### B 2 GLYPROT XOCHITL, FACTOR II DNA, HOMOCYS PL, FACV LEIDM, PROCF, LIPA, LUPANTCOAG, PROT S FUN, METH, CARDIO GMA, AT3 DEF PROFILE #### [facility] , #### [id number], CBC, PHOS, BMP, FE PRO, MG #### [facility] [address] [place] [address] Methylmalonic Acidon 021 Methylmalonic Acid 181 Normal 0-378 [facility] Comment on above: Order Comment: PT IS NON FASTING Performed By: #### B 2 GLYPROT XOCHITL, FACTOR II DNA, HOMOCYS PL, FACV LEIDM, PROCF, LIPA, LUPANTCOAG, PROT S FUN, METH, CARDIO GMA, AT3 DEF PROFILE #### [facility] , #### [id number], CBC, PHOS, BMP, FE PRO, MG #### [facility] [address] [place] [address] Methylmalonic Acid Disclaimer Normal . [facility] Comment on above: Order Comment: PT IS NON FASTING Result Comment: This test was developed and its performance characteristics determined by [employer]. It has not been cleared or approved by the Food and Drug Administration. Performed at: [facility] [id number] Personal Chef: Meet Parish MD, Phone: [phone] Performed By: #### B 2 GLYPROT XOCHITL, FACTOR II DNA, HOMOCYS PL, FACV LEIDM, PROCF, LIPA, LUPANTCOAG, PROT S FUN, METH, CARDIO GMA, AT3 DEF PROFILE #### [facility] , #### [id number], CBC, PHOS, BMP, FE PRO, MG #### [facility] [address] [place] [id number] [facility] Phosphoruson 07-18-2020 Phosphate [Mass/Vol] 3.7 mg/dL Normal 2.5-4.6 [facility] Comment on above: Order Comment: PT IS NON FASTING Performed By: #### B 2 GLYPROT XOCHITL, FACTOR II DNA, HOMOCYS PL, FACV LEIDM, PROCF, LIPA, LUPANTCOAG, PROT S FUN, METH, CARDIO GMA, AT3 DEF PROFILE #### [facility] , #### [id number], CBC, PHOS, BMP, FE PRO, MG #### [facility] [address] [id number] [facility] Protein C Functionalon 07-18 Protein C Functional 33 % Low 73-180 [facility] Comment on above: Order [...] on the clinical scenario. Performed at: - [facility] [address] [id number] Personal Chef: Meet Parish MD, Phone: [phone] Performed By: #### B 2 GLYPROT XOCHITL, FACTOR II DNA, HOMOCYS PL, FACV LEIDM, PROCF, LIPA, LUPANTCOAG, PROT S FUN, METH, CARDIO GMA, AT3 DEF PROFILE #### [facility] , #### [id number], CBC, PHOS, BMP, FE PRO, MG #### [facility] [address] Protein S Functionalon 07-18 Protein S Functional 49 % Low 63-140 [facility] Comment on above: Order [...] AT3 DEF PROFILE #### [facility] , #### [id number], CBC, PHOS, BMP, FE PRO, MG #### [facility] [address] Vit. B12/Folate Profileon Cobalamin (Vitamin B12) [Mass/Vol] 692 pg/mL Normal 180-914 [facility] Comment on above: Order Comment: PT IS NON FASTING Performed By: #### B 2 GLYPROT XOCHITL, FACTOR II DNA, HOMOCYS PL, FACV LEIDM, PROCF, LIPA, LUPANTCOAG, PROT S FUN, METH, CARDIO GMA, AT3 DEF PROFILE #### [facility] , #### [id number], CBC, PHOS, BMP, FE PRO, MG #### [address] Folate > 22.3 Normal >5.9 [facility] Comment on above: Order Comment: PT IS NON FASTING Result Comment: Claudine te reference range: >5.9 ng/ml The WHO technical consultation on folate and vitamin b12 deficiencies has determined that folate concentrations less than 4 ng/ml are considered deficient. PERFORMED BY: [place] [address] PATHOLOGIST CHIEF SCIENCE OFFICER TOBY GRACIA M.D. Performed By: #### B 2 GLYPROT XOCHITL, FACTOR II DNA, HOMOCYS PL, FACV LEIDM, PROCF, LIPA, LUPANTCOAG, PROT S FUN, METH, CARDIO GMA, AT3 DEF PROFILE #### [facility] , #### [id number], CBC, PHOS, BMP, FE PRO, MG #### [facility] [address] POCT Glucoseon 04-13-2019 Glucose [Mass/Vol] 202 mg/dL Critically high 60-115 [facility] Comment on above: Performed By: #### P GLU #### [facility] [address] [place] [address] POC Performed on [facility] Comment on above: Performed By: #### P GLU #### [facility] [address] [place] [address] Glucose [Mass/Vol] 202 mg/dL High 60 - 115 mg/dl [place] Interpretation and review of laboratory results Abnormal [place] Performed on [facility] [place] Glucose [Mass/Vol] 223 mg/dL Critically high 60-115 [facility] Comment on above: Performed By: #### P GLU #### [facility] [address] [place] [address] POC [facility] on [facility] Comment on above: Performed By: #### P GLU #### [facility] [address] [facility] [address] Glucose [Mass/Vol] 223 mg/dL High 60 - 115 mg/dl [place] Interpretation and review of laboratory results Abnormal [place] Performed on [facility] [place] PROTIME-INRon 04-13-2019 INR Coag (PPP) [Relative time] 2.3 {INR} [place] Comment on above: Warfarin Therapy INR Therapeutic: 2.0-3.0 With Mechanical Valve: >2.5 Low-intensity Therapeutic Range: 1.5-2.0 Mod-intensity Therapeutic Range: 2.0-3.0 High-intensity Therapeutic Range: 2.5-3.5 HIgh-intensity Therapeutic Range: 3.0-4.0 Common Critical/Alarm Value: 5.0 Common Upper Limit Reported: 10.0 Effective 11/26/2018: Please note methodology and/or reference ranges have changed. Interpretation and review of laboratory results Abnormal [place] PT Coag (PPP) [Time] 26.5 s High [place] Comment on above: Effective 11/26/18 Please note methodology and/or reference ranges have changed. Prothrombin Timeon 9 INR Coag (PPP) [Relative time] 2.3 {INR} Normal [facility] Comment on above: Result Comment: Warf brian Therapy INR Therapeutic: 2.0-3.0 With Mechanical Valve: >2.5 Low-intensity Therapeutic Range: 1.5-2.0 Mod-intensity Therapeutic Range: 2.0-3.0 High-intensity Therapeutic Range: 2.5-3.5 HIgh-intensity Therapeutic Range: 3.0-4.0 Common Critical/Alarm Value: 5.0 Common Upper Limit Reported: 10.0 Effective 11/26/2018: Please note methodology and/or reference ranges have changed. Performed By: #### P GLU #### [facility] [address] [place] [address] PT Coag (PPP) [Time] 26.5 s Critically high 12.3-14.9 [facility] Comment on above: Result Comment: Effe ctive 11/26/18 Please note methodology and/or reference ranges have changed. Performed By: #### P GLU #### [facility] [address] [place] [address] POCT Glucoseon 04-12-2019 Glucose [Mass/Vol] 154 mg/dL Critically high 60-115 [facility] Comment on above: Performed By: #### P GLU #### [facility] [address] [place] [address] POC Performed on [facility] Normal [facility] Comment on above: Performed By: #### P GLU #### [facility] [address] [place] [address] Glucose [Mass/Vol] 154 mg/dL High 60 - 115 mg/dl [place] Interpretation and review of laboratory results Abnormal [place] Performed on [facility] [place] Glucose [Mass/Vol] 241 mg/dL Critically high 60-115 [facility] Comment on above: Performed By: #### P T #### [facility] [address] [place] [address] POC Performed on [facility]K Normal [facility] Comment on above: Performed By: #### P T #### [facility] [address] [place] [address] Glucose [Mass/Vol] 241 mg/dL High 60 - 115 mg/dl [place] Interpretation and review of laboratory results Abnormal [place] Performed on [facility] [place] Glucose [Mass/Vol] 194 mg/dL Critically high 60-115 [facility] Comment on above: Performed By: #### P T #### [facility] [address] [place] [address] POC [facility] on [facility] Comment on above: Performed By: #### P T #### [facility] [address] [place] [address] Glucose [Mass/Vol] 194 mg/dL High 60 - 115 mg/dl [place] Interpretation and review of laboratory results Abnormal [place] Performed on [facility] [place] Glucose [Mass/Vol] 228 mg/dL Critically high 60-115 [facility] Comment on above: Performed By: #### P T #### [facility] [address] [place] [address] POC [facility] on [facility] Comment on above: Performed By: #### P T #### [facility] [address] [place] [address] Glucose [Mass/Vol] 228 mg/dL High 60 - 115 mg/dl [place] Interpretation and review of laboratory results Abnormal [place] Performed on [facility] [place] PROTIME-INRon 04-12-2019 INR Coag (PPP) [Relative time] 2.1 {INR} [place] Comment on above: Warfarin Therapy INR Therapeutic: 2.0-3.0 With Mechanical Valve: >2.5 Low-intensity Therapeutic Range: 1.5-2.0 Mod-intensity Therapeutic Range: 2.0-3.0 High-intensity Therapeutic Range: 2.5-3.5 HIgh-intensity Therapeutic Range: 3.0-4.0 Common Critical/Alarm Value: 5.0 Common Upper Limit Reported: 10.0 Effective 11/26/2018: Please note methodology and/or reference ranges have changed. Interpretation and review of laboratory results Abnormal [facility] [place] PT Coag (PPP) [Time] 24.3 s [place] Comment on above: Effective 11/26/18 Please note methodology and/or reference ranges have changed. Prothrombin Timeon 9 INR Coag (PPP) [Relative time] 2.1 {INR} Normal [facility] Comment on above: Result Comment: Warf brian Therapy INR Therapeutic: 2.0-3.0 With Mechanical Valve: >2.5 Low-intensity Therapeutic Range: 1.5-2.0 Mod-intensity Therapeutic Range: 2.0-3.0 High-intensity Therapeutic Range: 2.5-3.5 HIgh-intensity Therapeutic Range: 3.0-4.0 Common Critical/Alarm Value: 5.0 Common Upper Limit Reported: 10.0 Effective 11/26/2018: Please note methodology and/or reference ranges have changed. Performed By: #### P T #### [facility] [address] [place] [address] PT Coag (PPP) [Time] 24.3 s Critically high 12.3-14.9 [facility] Comment on above: Result Comment: Effe ctive 11/26/18 Please note methodology and/or reference ranges have changed. Performed By: #### P T #### [facility] [address] [place] [address] POCT Glucoseon 04-11-2019 Glucose [Mass/Vol] 234 mg/dL Critically high 60-115 [facility] Comment on above: Performed By: #### P T #### [facility] [address] [place] [address] POC Performed on ACCU-CHEK Normal [facility] Comment on above: Performed By: #### P T #### [facility] [address] [place] [address] Glucose [Mass/Vol] 234 mg/dL High 60 - 115 mg/dl [place] Interpretation and review of laboratory results Abnormal [place] Performed on [facility] [place] Glucose [Mass/Vol] 246 mg/dL Critically high 60-115 [facility] Comment on above: Performed By: #### P T #### [facility] [address] [place] [address] [facility]OC [facility] on above: Performed By: #### P T #### [facility] [address] [facility] [address] Glucose [Mass/Vol] 246 mg/dL High 60 - 115 mg/dl [place] Interpretation and review of laboratory results Abnormal [place] Performed on [facility] [place] Glucose [Mass/Vol] 258 mg/dL Critically high 60-115 [place] Comment on above: Performed By: #### P T #### [facility] [address] [facility] [address] Interpretation and review of laboratory results Abnormal [place] Performed on [facility] [place] Glucose [Mass/Vol] 249 mg/dL Critically high 60-115 [facility] Comment on above: Performed By: #### P T #### [facility] [address] [place] [address] POC [facility] on [facility] Comment on above: Performed By: #### P T #### [facility] [address] [place] [address] Glucose [Mass/Vol] 249 mg/dL High 60 - 115 mg/dl [place] Interpretation and review of laboratory results Abnormal [place] Performed on [facility] [place] PROTIME-INRon 04-11-2019 INR Coag (PPP) [Relative time] 1.6 {INR} [place] Comment on above: Warfarin Therapy INR Therapeutic: 2.0-3.0 With Mechanical Valve: >2.5 Low-intensity Therapeutic Range: 1.5-2.0 Mod-intensity Therapeutic Range: 2.0-3.0 High-intensity Therapeutic Range: 2.5-3.5 HIgh-intensity Therapeutic Range: 3.0-4.0 Common Critical/Alarm Value: 5.0 Common Upper Limit Reported: 10.0 Effective 11/26/2018: Please note methodology and/or reference ranges have changed. Interpretation and review of laboratory results Abnormal [place] PT Coag (PPP) [Time] 19.6 s [place] Comment on above: Effective 11/26/18 Please note methodology and/or reference ranges have changed. Prothrombin Timeon 9 INR Coag (PPP) [Relative time] 1.6 {INR} Normal [facility] Comment on above: Result Comment: Warf brian Therapy INR Therapeutic: 2.0-3.0 With Mechanical Valve: >2.5 Low-intensity Therapeutic Range: 1.5-2.0 Mod-intensity Therapeutic Range: 2.0-3.0 High-intensity Therapeutic Range: 2.5-3.5 HIgh-intensity Therapeutic Range: 3.0-4.0 Common Critical/Alarm Value: 5.0 Common Upper Limit Reported: 10.0 Effective 11/26/2018: Please note methodology and/or reference ranges have changed. Performed By: #### P T #### [facility] [address] [facility] [address] PT Coag (PPP) [Time] 19.6 s Critically high 12.3-14.9 [facility] Comment on above: Result Comment: Effe ctive 11/26/18 Please note methodology and/or reference ranges have changed. Performed By: #### P T #### [facility] [address] [facility] [address] POCT Glucoseon 04-10-2019 Glucose [Mass/Vol] 290 mg/dL Critically high 60-115 [facility] Comment on above: Performed By: #### P T #### [facility] [address] [place] [address] POC Performed on ACCU[facility]CHEK Normal [facility] Comment on above: Performed By: #### P T #### [facility] [address] [place] [address] Glucose [Mass/Vol] 290 mg/dL High 60 - 115 mg/dl [place] Interpretation and review of laboratory results Abnormal [place] Performed on [facility] [place] Glucose [Mass/Vol] 337 mg/dL Critically high 60-115 [facility] Comment on above: Performed By: #### P GLU #### [facility] [address] [place] [address] POC Performed on [facility] Comment on above: Performed By: #### P GLU #### [facility] [address] [place] [address] Glucose [Mass/Vol] 337 mg/dL High 60 - 115 mg/dl [place] Interpretation and review of laboratory results Abnormal [place] Performed on [facility] [place] Glucose [Mass/Vol] 313 mg/dL Critically high 60-115 [facility] Comment on above: Performed By: #### P GLU #### [facility] [address] [place] [address] POC [facility] Comment on above: Performed By: #### P GLU #### [facility] [address] [place] [address] Glucose [Mass/Vol] 313 mg/dL High 60 - 115 mg/dl [place] Interpretation and review of laboratory results Abnormal [place] Performed on [facility] [place] Glucose [Mass/Vol] 309 mg/dL Critically high 60-115 [facility] Comment on above: Performed By: #### P GLU #### [facility] [address] [place] [address] POC Performed on ACCU-CHEK Normal [facility] Comment on above: Performed By: #### P GLU #### [facility] [address] [facility] [address] Glucose [Mass/Vol] 309 mg/dL High 60 - 115 mg/dl [place] Interpretation and review of laboratory results Abnormal [place] Performed on [facility] [place] PROTIME-INRon 04-10-2019 INR Coag (PPP) [Relative time] 1.1 {INR} [place] Comment on above: Warfarin Therapy INR Therapeutic: 2.0-3.0 With Mechanical Valve: >2.5 Low-intensity Therapeutic Range: 1.5-2.0 Mod-intensity Therapeutic Range: 2.0-3.0 High-intensity Therapeutic Range: 2.5-3.5 HIgh-intensity Therapeutic Range: 3.0-4.0 Common Critical/Alarm Value: 5.0 Common Upper Limit Reported: 10.0 Effective 11/26/2018: Please note methodology and/or reference ranges have changed. PT Coag (PPP) [Time] 14.7 s [place] Comment on above: Effective 11/26/18 Please note methodology and/or reference ranges have changed. Prothrombin Timeon 9 INR Coag (PPP) [Relative time] 1.1 {INR} Normal [facility] Comment on above: Result Comment: Warf brian Therapy INR Therapeutic: 2.0-3.0 With Mechanical Valve: >2.5 Low-intensity Therapeutic Range: 1.5-2.0 Mod-intensity Therapeutic Range: 2.0-3.0 High-intensity Therapeutic Range: 2.5-3.5 HIgh-intensity Therapeutic Range: 3.0-4.0 Common Critical/Alarm Value: 5.0 Common Upper Limit Reported: 10.0 Effective 11/26/2018: Please note methodology and/or reference ranges have changed. Performed By: #### P GLU #### [facility] [address] [facility] [address] PT Coag (PPP) [Time] 14.7 s Normal 12.3-14.9 [facility] Comment on above: Result Comment: Effe ctive 11/26/18 Please note methodology and/or reference ranges have changed. Performed By: #### P GLU #### [facility] [address] [place] [address] Basic Metabolic Panel Reflex Mgon 04-09-2019 Anion gap [Moles/Vol] 10 mmol/L Normal 9-15 [facility] Comment on above: Performed By: #### T S3C #### [facility] [address] [place] [address] Calcium [Mass/Vol] 8.2 mg/dL Low 8.5-9.9 [facility] Comment on above: Performed By: #### T S3C #### [facility] [address] [place] [address] Chloride [Moles/Vol] 98 mmol/L Normal 95-107 [facility] Comment on above: Performed By: #### T S3C #### [facility] [address] [place] [address] CO2 [Moles/Vol] 23 mmol/L Normal 20-31 [facility] Comment on above: Performed By: #### T S3C #### [facility] [address] [place] [address] Creatinine [Mass/Vol] 1.38 mg/dL Critically high 0.70-1.20 [facility] Comment on above: Performed By: #### T S3C #### [facility] [address] [place] [address] GFR/1.73 sq M predicted among blacks MDRD (S/P/Bld) [Vol rate/Area] mL/min/{1.73_m2} Normal >60 [facility] Comment on above: Result Comment: >60 mL/min/1.73m2 EGFR, calc. for ages 18 and older using the MDRD formula (not corrected for weight), is valid for stable renal function. Performed By: #### T S3C #### [facility] [address] [place] [address] GFR/1.73 sq M.predicted MDRD (S/P/Bld) [Vol rate/Area] 51.1 mL/min/{1.73_m2} Low >60 [facility] Comment on above: Result Comment: >60 mL/min/1.73m2 EGFR, calc. for ages 18 and older using the MDRD formula (not corrected for weight), is valid for stable renal function. Performed By: #### T S3C #### [facility] [address] [place] [address] Glucose [Mass/Vol] 266 mg/dL Critically high 70-99 [facility] Comment on above: Performed By: #### T S3C #### [facility] [address] [place] [address] Potassium reflex Mg 4.0 mEq/L Normal 3.4-4.9 [facility] Comment on above: Performed By: #### T S3C #### [facility] [address] [place] [address] Sodium [Moles/Vol] 131 mmol/L Low 135-144 [facility] Comment on above: Performed By: #### T S3C #### [facility] [address] [place] [address] Urea nitrogen [Mass/Vol] 13 mg/dL Normal 8-23 [facility] Comment on above: Performed By: #### T S3C #### [facility] [address] [place] [address] Basic Metabolic Panel w/ Ref anthony to MGon 04-09-2019 Anion gap [Moles/Vol] 10 mmol/L [facility] [place] [facility] [place] Calcium [Mass/Vol] 8.2 mg/dL Low 8.5 - 9.9 mg/dL [facility] [place] Chloride [Moles/Vol] 98 mmol/L [facility] [place] CO2 [Moles/Vol] 23 mmol/L [facility] [place] Creatinine [Mass/Vol] 1.38 mg/dL High 0.7 - 1.2 mg/dL [place] GFR >60.0 >60 [place] Comment on above: >60 mL/min/1.73m2 EG FR, calc. for ages 18 and older using the MDRD formula (not corrected for weight), is valid for stable renal function. GFR Non- 51.1 Low >60 [place] Comment on above: >60 mL/min/1.73m2 EG FR, calc. for ages 18 and older using the MDRD formula (not corrected for weight), is valid for stable renal function. Glucose [Mass/Vol] 266 mg/dL High 70 - 99 mg/dL [place] Interpretation and review of laboratory results Abnormal [place] Potassium [Moles/Vol] 4.0 mmol/L [place] Sodium [Moles/Vol] 131 mmol/L [place] Urea nitrogen [Mass/Vol] 13 mg/dL 8 - 23 mg/dL [place] CBC With Platelet and Differ entialon 04-09-2019 Basophils (Bld) [#/Vol] 0.1 10*3/uL Normal 0.0-0.2 [facility] Comment on above: Performed By: #### T S3C #### [facility] [address] [place] [address] Basophils/100 WBC (Bld) 0.7 % Normal [facility] Comment on above: Performed By: #### T S3C #### [facility] [address] [place] [address] Eosinophils (Bld) [#/Vol] 0.5 10*3/uL Normal 0.0-0.7 [facility] Comment on above: Performed By: #### T S3C #### [facility] [address] [place] [address] Eosinophils/100 WBC (Bld) 5.9 % Normal [facility] Comment on above: Performed By: #### T S3C #### [facility] [address] [place] [address] Erythrocyte distribution width (RBC) [Ratio] 12.6 % Normal 11.5-14.5 [facility] Comment on above: Performed By: #### T S3C #### [facility] [address] [place] [address] Hematocrit (Bld) [Volume fraction] 31.5 % Low 42.0-52.0 [facility] Comment on above: Performed By: #### T S3C #### [facility] [address] [place] [address] Hemoglobin (Bld) [Mass/Vol] 10.6 g/dL Low 14.0-18.0 [facility] Comment on above: Performed By: #### T S3C #### [facility] [address] [place] [address] Lymphocytes (Bld) [#/Vol] 1.0 10*3/uL Normal 1.0-4.8 [facility] Comment on above: Performed By: #### T S3C #### [facility] [address] [place] [address] Lymphocytes/100 WBC (Bld) 12.8 % Normal [facility] Comment on above: Performed By: #### T S3C #### [facility] [address] [place] [address] MCH (RBC) [Entitic mass] 31.3 pg Normal 27.0-31.3 [facility] Comment on above: Performed By: #### T S3C #### [facility] [address] [place] [address] MCHC (RBC) [Mass/Vol] 33.8 % Normal 33.0-37.0 [facility] Comment on above: Performed By: #### T S3C #### [facility] [address] [place] [address] MCV (RBC) [Entitic vol] 92.8 fL Normal 80.0-100.0 [facility] Comment on above: Performed By: #### T S3C #### [facility] [address] [place] [address] Monocytes (Bld) [#/Vol] 0.7 10*3/uL Normal 0.2-0.8 [facility] Comment on above: Performed By: #### T S3C #### [facility] [address] [place] [address] Monocytes/100 WBC (Bld) 9.0 % Normal [facility] Comment on above: Performed By: #### T S3C #### [facility] [address] [place] [address] Neutrophils (Bld) [#/Vol] 5.8 10*3/uL Normal 1.4-6.5 [facility] Comment on above: Performed By: #### T S3C #### [facility] [address] [place] [address] Neutrophils/100 WBC (Bld) 71.6 % Normal [facility] Comment on above: Performed By: #### T S3C #### [facility] [address] [place] [address] Platelets (Bld) [#/Vol] 169 10*3/uL Normal 130-400 [facility] Comment on above: Performed By: #### T S3C #### [facility] [address] [place] [address] RBC (Bld) [#/Vol] 3.39 10*6/uL Low 4.70-6.10 [facility] Comment on above: Performed By: #### T S3C #### [facility] [address] [place] [address] WBC (Bld) [#/Vol] 8.1 10*3/uL Normal 4.8-10.8 [facility] Comment on above: Performed By: #### T S3C #### [facility] [address] [place] [address] CBC auto differentialon 11-2 2-2019 Basophils (Bld) [#/Vol] 0.1 10*3/uL 0 - 0.2 K/uL [place] Basophils/100 WBC (Bld) 0.7 % [place] Eosinophils (Bld) [#/Vol] 0.5 10*3/uL 0 - 0.7 K/uL [place] Eosinophils/100 WBC (Bld) 5.9 % [place] Erythrocyte distribution width (RBC) [Ratio] 12.6 % 11.5 - 14.5 % [place] Hematocrit (Bld) [Volume fraction] 31.5 % Low 42 - 52 % [place] Hemoglobin (Bld) [Mass/Vol] 10.6 g/dL Low 14 - 18 g/dL [place] Interpretation and review of laboratory results Abnormal [place] Lymphocytes (Bld) [#/Vol] 1.0 10*3/uL 1 - 4.8 K/uL [place] Lymphocytes/100 WBC (Bld) 12.8 % [place] MCH (RBC) [Entitic mass] 31.3 pg 27 - 31.3 pg [place] MCHC (RBC) [Mass/Vol] 33.8 % 33 - 37 % [place] MCV (RBC) [Entitic vol] 92.8 fL 80 - 100 fL [place] Monocytes (Bld) [#/Vol] 0.7 10*3/uL 0.2 - 0.8 K/uL [place] Monocytes/100 WBC (Bld) 9.0 % [place] Neutrophils Absolute 5.8 K/uL 1.4 - 6.5 K/uL [place] Neutrophils/100 WBC (Bld) 71.6 % [place] Platelets (Bld) [#/Vol] 169 10*3/uL 130 - 400 K/uL [place] RBC (Bld) [#/Vol] 3.39 10*6/uL Low [place] WBC (Bld) [#/Vol] 8.1 10*3/uL 4.8 - 10.8 K/uL [place] Lactic Acidon 11-22-2019 Lactate [Moles/Vol] 1.8 mmol/L Normal 0.5-2.2 [place] Comment on above: Performed By: #### P GLU #### [facility] [address] [place] [address] Lactate [Moles/Vol] 1.6 mmol/L Normal 0.5-2.2 [facility] Comment on above: Performed By: #### T S3C #### [facility] [address] [place] [address] Lactate [Moles/Vol] 1.4 mmol/L Normal 0.5-2.2 [facility] Comment on above: Performed By: #### T S3C #### [facility] [address] [place] [address] Lactic acid, plasmaon 2018 Lactate [Moles/Vol] 1.6 mmol/L 0.5 - 2.2 mmol/L [place] Lactate [Moles/Vol] 1.4 mmol/L 0.5 - 2.2 mmol/L [place] POCT Glucoseon 04-09-2019 Glucose [Mass/Vol] 379 mg/dL Critically high 60-115 [facility] Comment on above: Performed By: #### P GLU #### [facility] [address] [place] [address] POC Performed on ACCU-CHEK Normal [facility] Comment on above: Performed By: #### P GLU #### [facility] [address] [place] [address] Glucose [Mass/Vol] 379 mg/dL High 60 - 115 mg/dl [place] Interpretation and review of laboratory results Abnormal [place] Performed on ACCU-CHEK [place] Glucose [Mass/Vol] 329 mg/dL Critically high 60-115 [facility] Comment on above: Performed By: #### P GLU #### [facility] [address] [place] [address] POC Performed on ACCU-CHEK Normal [facility] Comment on above: Performed By: #### P GLU #### [facility] [address] [place] [address] Glucose [Mass/Vol] 329 mg/dL High 60 - 115 mg/dl [place] Interpretation and review of laboratory results Abnormal [place] [facility] [place] Glucose [Mass/Vol] 318 mg/dL Critically high 60-115 [facility] Comment on above: Performed By: #### P GLU #### [facility] [address] [place] [address] POC Performed on [facility] Comment on above: Performed By: #### P GLU #### [facility] [address] [place] [address] Glucose [Mass/Vol] 318 mg/dL High 60 - 115 mg/dl [place] Interpretation and review of laboratory results Abnormal [place] [facility] [place] PROTIME-INRon 04-09-2019 INR Coag (PPP) [Relative time] 1.1 {INR} [place] Comment on above: Warfarin Therapy INR Therapeutic: 2.0-3.0 With Mechanical Valve: >2.5 Low-intensity Therapeutic Range: 1.5-2.0 Mod-intensity Therapeutic Range: 2.0-3.0 High-intensity Therapeutic Range: 2.5-3.5 HIgh-intensity Therapeutic Range: 3.0-4.0 Common Critical/Alarm Value: 5.0 Common Upper Limit Reported: 10.0 Effective 11/26/2018: Please note methodology and/or reference ranges have changed. PT Coag (PPP) [Time] 14.4 s [place] Comment on above: Effective 11/26/18 Please note methodology and/or reference ranges have changed. Procalcitoninon 04-09-2019 Procalcitonin 0.23 ng/mL Critically high 0.00-0.15 [facility] Comment on above: Result Comment: Refe rence [...] failure. Performed By: #### T S3C #### [facility] [address] [place] [address] Interpretation and review of laboratory results Abnormal [place] Procalcitonin 0.23 ng/mL High 0 - 0.15 ng/mL [place] Comment on above: Reference Range: Adults: [...] Coag (PPP) [Relative time] 1.1 {INR} Normal [facility] Comment on above: Result Comment: Warf brian Therapy INR Therapeutic: 2.0-3.0 With Mechanical Valve: >2.5 Low-intensity Therapeutic Range: 1.5-2.0 Mod-intensity Therapeutic Range: 2.0-3.0 High-intensity Therapeutic Range: 2.5-3.5 HIgh-intensity Therapeutic Range: 3.0-4.0 Common Critical/Alarm Value: 5.0 Common Upper Limit Reported: 10.0 Effective 11/26/2018: Please note methodology and/or reference ranges have changed. Performed By: #### P GLU #### [facility] [address] [facility] [address] PT Coag (PPP) [Time] 14.4 s Normal 12.3-14.9 [facility] Comment on above: Result Comment: Effe ctive 11/26/18 Please note methodology and/or reference ranges have changed. Performed By: #### P GLU #### [facility] [address] [facility] [address] Urine Cultureon 04-09-2019 Bacteria identified Cx Nom (U) No growth 24 hours [facility] [place] DERED BY: JOSE DAVID DAMIAN SOURCE: Urine Clean Catch COLLECTED: 04/07/19 18:30 ANTIBIOTICS AT JIMENA.: RECEIVED : 04/07/19 21:27 [facility] TOTAL DIRECT & IND IRECTon 04-08-2019 Bilirubin Ql (U) 2.7 mg/dL High 0.2 - 0.7 mg/dL [facility] [place] Bilirubin, Indirect 2 mg/dL High 0 - 0.6 mg/dL [facility] [place] Bilirubin.direct [Mass/Vol] 0.7 mg/dL High 0 - 0.4 mg/dL [place] Interpretation and review of laboratory results Abnormal [place] Basic Metabolic Panel Reflex Mgon 04-08-2019 Anion gap [Moles/Vol] 9 mmol/L Normal 9-15 [facility] Comment on above: Performed By: #### A 1C #### [facility] [address] [place] [address] Calcium [Mass/Vol] 8.0 mg/dL Low 8.5-9.9 [facility] Comment on above: Performed By: #### A 1C #### [facility] [address] [place] [address] Chloride [Moles/Vol] 99 mmol/L Normal 95-107 [facility] Comment on above: Performed By: #### A 1C #### [facility] [address] [place] [address] CO2 [Moles/Vol] 23 mmol/L Normal 20-31 [facility] Comment on above: Performed By: #### A 1C #### [facility] [address] [place] [address] Creatinine [Mass/Vol] 1.77 mg/dL Critically high 0.70-1.20 [facility] Comment on above: Performed By: #### A 1C #### [facility] [address] [place] [address] GFR/1.73 sq M predicted among blacks MDRD (S/P/Bld) [Vol rate/Area] 46.4 mL/min/{1.73_m2} Low >60 [facility] Comment on above: Result Comment: >60 mL/min/1.73m2 EGFR, calc. for ages 18 and older using the MDRD formula (not corrected for weight), is valid for stable renal function. Performed By: #### A 1C #### [facility] [address] [place] [address] GFR/1.73 sq M.predicted MDRD (S/P/Bld) [Vol rate/Area] 38.4 mL/min/{1.73_m2} Low >60 [facility] Comment on above: Result Comment: >60 mL/min/1.73m2 EGFR, calc. for ages 18 and older using the MDRD formula (not corrected for weight), is valid for stable renal function. Performed By: #### A 1C #### [facility] [address] [place] [address] Glucose [Mass/Vol] 219 mg/dL Critically high 70-99 [facility] Comment on above: Performed By: #### A 1C #### [facility] [address] [place] [address] Potassium reflex Mg 4.8 mEq/L Normal 3.4-4.9 [facility] Comment on above: Performed By: #### A 1C #### [facility] [address] [place] [address] Sodium [Moles/Vol] 131 mmol/L Low 135-144 [facility] Comment on above: Performed By: #### A 1C #### [facility] [address] [place] [address] Urea nitrogen [Mass/Vol] 18 mg/dL Normal 8-23 [facility] Comment on above: Performed By: #### A 1C #### [facility] [address] [place] [address] Basic Metabolic Panel w/ Ref anthony to MGon 04-08-2019 Anion gap [Moles/Vol] 9 mmol/L [facility], [place] Calcium [Mass/Vol] 8.0 mg/dL Low 8.5 - 9.9 mg/dL [facility], [place] Chloride [Moles/Vol] 99 mmol/L [facility], [place] CO2 [Moles/Vol] 23 mmol/L [facility], [place] Creatinine [Mass/Vol] 1.77 mg/dL High 0.7 - 1.2 mg/dL [facility], [place] GFR 46.4 Low >60 [facility], [place] Comment on above: >60 mL/min/1.73m2 EG FR, calc. for ages 18 and older using the MDRD formula (not corrected for weight), is valid for stable renal function. GFR Non- 38.4 Low >60 [place] Comment on above: >60 mL/min/1.73m2 EG FR, calc. for ages 18 and older using the MDRD formula (not corrected for weight), is valid for stable renal function. Glucose [Mass/Vol] 219 mg/dL High 70 - 99 mg/dL [place] Potassium [Moles/Vol] 4.8 mmol/L [place] Sodium [Moles/Vol] 131 mmol/L [place] Urea nitrogen [Mass/Vol] 18 mg/dL 8 - 23 mg/dL [place] Bilirubin Total, Direct, and Indirecton 04-08-2019 Bilirubin [Mass/Vol] 2.7 mg/dL Critically high 0.2-0.7 [facility] Comment on above: Performed By: #### B MP #### [facility] [address] [place] [address] Bilirubin Indirect 2.0 mg/dL Critically high 0.0-0.6 [facility] Comment on above: Performed By: #### B MP #### [facility] [address] [place] [address] Bilirubin.direct [Mass/Vol] 0.7 mg/dL Critically high 0.0-0.4 [facility] Comment on above: Performed By: #### B MP #### [facility] [address] [place] [address] CBC With Platelet and Differ entialon 04-08-2019 Basophils (Bld) [#/Vol] 0.1 10*3/uL Normal 0.0-0.2 [facility] Comment on above: Performed By: #### B MP #### [facility] [address] [place] [address] Basophils/100 WBC (Bld) 0.7 % Normal [facility] Comment on above: Performed By: #### B MP #### [facility] [address] [place] [address] Eosinophils (Bld) [#/Vol] 0.4 10*3/uL Normal 0.0-0.7 [facility] Comment on above: Performed By: #### B MP #### [facility] [address] [place] [address] Eosinophils/100 WBC (Bld) 3.5 % Normal [facility] Comment on above: Performed By: #### B MP #### [facility] [address] [place] [address] Erythrocyte distribution width (RBC) [Ratio] 12.7 % Normal 11.5-14.5 [facility] Comment on above: Performed By: #### B MP #### [facility] [address] [place] [address] Hematocrit (Bld) [Volume fraction] 34.0 % Low 42.0-52.0 [facility] Comment on above: Performed By: #### B MP #### [facility] [address] [place] [address] Hemoglobin (Bld) [Mass/Vol] 11.2 g/dL Low 14.0-18.0 [facility] Comment on above: Performed By: #### B MP #### [facility] [address] [place] [address] Lymphocytes (Bld) [#/Vol] 1.6 10*3/uL Normal 1.0-4.8 [facility] Comment on above: Performed By: #### B MP #### [facility] [address] [place] [address] Lymphocytes/100 WBC (Bld) 13.9 % Normal [facility] Comment on above: Performed By: #### B MP #### [facility] [address] [place] [address] MCH (RBC) [Entitic mass] 30.8 pg Normal 27.0-31.3 [facility] Comment on above: Performed By: #### B MP #### [facility] [address] [place] [address] MCHC (RBC) [Mass/Vol] 32.9 % Low 33.0-37.0 [facility] Comment on above: Performed By: #### B MP #### [facility] [address] [place] [address] MCV (RBC) [Entitic vol] 93.7 fL Normal 80.0-100.0 [facility] Comment on above: Performed By: #### B MP #### [facility] [address] [place] [address] Monocytes (Bld) [#/Vol] 1.1 10*3/uL Critically high 0.2-0.8 [facility] Comment on above: Performed By: #### B MP #### [facility] [address] [place] [address] Monocytes/100 WBC (Bld) 9.6 % Normal [facility] Comment on above: Performed By: #### B MP #### [facility] [address] [place] [address] Neutrophils (Bld) [#/Vol] 8.2 10*3/uL Critically high 1.4-6.5 [facility] Comment on above: Performed By: #### B MP #### [facility] [address] [place] [address] Neutrophils/100 WBC (Bld) 72.3 % Normal [facility] Comment on above: Performed By: #### B MP #### [facility] [address] [place] [address] Platelets (Bld) [#/Vol] 153 10*3/uL Normal 130-400 [facility] Comment on above: Performed By: #### B MP #### [facility] [address] [place] [address] RBC (Bld) [#/Vol] 3.63 10*6/uL Low 4.70-6.10 [facility] Comment on above: Performed By: #### B MP #### [facility] [address] [place] [address] WBC (Bld) [#/Vol] 11.4 10*3/uL Critically high 4.8-10.8 [facility] Comment on above: Performed By: #### B MP #### [facility] [address] [place] [address] CBC auto differentialon 03-20 Basophils (Bld) [#/Vol] 0.1 10*3/uL 0 - 0.2 K/uL [place] Basophils/100 WBC (Bld) 0.7 % [place] Eosinophils (Bld) [#/Vol] 0.4 10*3/uL 0 - 0.7 K/uL [place] Eosinophils/100 WBC (Bld) 3.5 % [place] Erythrocyte distribution width (RBC) [Ratio] 12.7 % 11.5 - 14.5 % [place] Hematocrit (Bld) [Volume fraction] 34.0 % Low 42 - 52 % [place] Hemoglobin (Bld) [Mass/Vol] 11.2 g/dL Low 14 - 18 g/dL [place] Interpretation and review of laboratory results Abnormal [place] Lymphocytes (Bld) [#/Vol] 1.6 10*3/uL 1 - 4.8 K/uL [place] Lymphocytes/100 WBC (Bld) 13.9 % [place] MCH (RBC) [Entitic mass] 30.8 pg 27 - 31.3 pg [place] MCHC (RBC) [Mass/Vol] 32.9 % Low 33 - 37 % [place] MCV (RBC) [Entitic vol] 93.7 fL 80 - 100 fL [place] Monocytes (Bld) [#/Vol] 1.1 10*3/uL High 0.2 - 0.8 K/uL [place] Monocytes/100 WBC (Bld) 9.6 % [place] Neutrophils Absolute 8.2 K/uL High 1.4 - 6.5 K/uL [place] Neutrophils/100 WBC (Bld) 72.3 % [place] Platelets (Bld) [#/Vol] 153 10*3/uL 130 - 400 K/uL [place] RBC (Bld) [#/Vol] 3.63 10*6/uL Low [place] WBC (Bld) [#/Vol] 11.4 10*3/uL High 4.8 - 10.8 K/uL [place] Culture, Respiratoryon 04-08 Culture, Respiratory ORDERED BY: SHANIKA JENNINGS SOURCE: Sputum Expectorated Mouth COLLECTED: 04/08/19 05:06 ANTIBIOTICS AT JIMENA.: RECEIVED : 04/08/19 05:06 Gram Stain Direct FINAL 04/08/19 08:03 Many WBC's Rare epithelial cells Few Budding yeast Culture, Respiratory FINAL 04/10/19 11:39 Usual respiratory rachel with Rare growth Yeast No further workup Normal [facility] Comment on above: Performed By: #### A 1C #### [facility] [address] [place] [facility] Hepatic function panelon Albumin [Mass/Vol] 2.8 g/dL Low 3.5 - 4.6 g/dL [place] ALP [Catalytic activity/Vol] 42 U/L 35 - 104 U/L [place] ALT [Catalytic activity/Vol] 28 U/L 0 - 41 U/L [place] AST [Catalytic activity/Vol] 17 U/L 0 - 40 U/L [place] Bilirubin Ql (U) 2.0 mg/dL High 0.2 - 0.7 mg/dL [place] Bilirubin, Indirect 1.4 mg/dL High 0 - 0.6 mg/dL [place] Bilirubin.direct [Mass/Vol] 0.6 mg/dL High 0 - 0.4 mg/dL [place] Protein [Mass/Vol] 5.4 g/dL Low 6.3 - 8 g/dL [place] Influenza A and Bon 04-08-20 Influenza A by PCR Negative Normal [facility] Comment on above: Result Comment: Effe ctive 01/07/19 Please note methodology and/or reference ranges have changed. Performed By: #### B MP #### [facility] [address] [facility] [address] Influenza B by PCR Negative Normal [facility] Comment on above: Result Comment: Effe ctive 01/07/19 Please note methodology and/or reference ranges have changed. Performed By: #### B MP #### [facility] [address] [facility] [address] Lactate, Sepsison 04-08-2019 Lactate, Sepsis 2.1 mmol/L Critically high 0.5-1.9 [facility] Comment on above: Performed By: #### A 1C #### [facility] [address] [facility] [address] Interpretation and review of laboratory results Abnormal [place] Lactic Acid, Sepsis 2.1 mmol/L High 0.5 - 1.9 mmol/L [place] Lactate, Sepsis 4.0 mmol/L Critically high 0.5-1.9 [facility] Comment on above: Order Comment: CALL Ruiz LC2W tel. [phone],Lactic Acid results called to and read back by Shaq Castillo RN, 04/08/2019 01:55,by CHARLEY Performed By: #### B MP #### [facility] [address] [facility] [address] Interpretation and review of laboratory results Abnormal [place] Lactic Acid, Sepsis 4.0 mmol/L Critically high 0.5 - 1.9 mmol/L [place] CALL [facility]iz LC2W tel. [phone], Lactic Acid results called to and read back by Shaq Castillo RN, 04/08/2019 01:55, by CHARLEY [place] Lactic Acidon 04-08-2019 Lactate [Moles/Vol] 2.7 mmol/L Critically high 0.5-2.2 [place] Comment on above: Performed By: #### T S3C #### [facility] [address] [place] [address] Lactate [Moles/Vol] 1.6 mmol/L Normal 0.5-2.2 [facility] Comment on above: Performed By: #### A 1C #### [facility] [address] [place] [address] Lactic acid, plasmaon 2018 Lactate [Moles/Vol] 1.6 mmol/L 0.5 - 2.2 mmol/L [place] Liver Panelon 04-08-2019 Bilirubin Indirect 1.4 mg/dL Critically high 0.0-0.6 [facility] Comment on above: Performed By: #### A 1C #### [facility] [address] [place] [address] Albumin [Mass/Vol] 2.8 g/dL Low 3.5-4.6 [facility] Comment on above: Performed By: #### A 1C #### [facility] [address] [place] [address] ALP [Catalytic activity/Vol] 42 U/L Normal 35-104 [facility] Comment on above: Performed By: #### A 1C #### [facility] [address] [place] [address] ALT [Catalytic activity/Vol] 28 U/L Normal 0-41 [facility] Comment on above: Performed By: #### A 1C #### [facility] [address] [place] [address] AST [Catalytic activity/Vol] 17 U/L Normal 0-40 [facility] Comment on above: Performed By: #### A 1C #### [facility] [address] [place] [address] Bilirubin [Mass/Vol] 2.0 mg/dL Critically high 0.2-0.7 [facility] Comment on above: Performed By: #### A 1C #### [facility] [address] [place] [address] Bilirubin.direct [Mass/Vol] 0.6 mg/dL Critically high 0.0-0.4 [facility] Comment on above: Performed By: #### A 1C #### [facility] [address] [place] [address] Protein [Mass/Vol] 5.4 g/dL Low 6.3-8.0 [facility] Comment on above: Performed By: #### A 1C #### [facility] [address] [place] [address] MRI LUMBAR SPINE W WO CONTRA STon 04-08-2019 Phillip, Chpo Incoming R adiant Results From [employer] - 04/08/2019 1:24 PM EST Patient : [...] hematopoietic hyperplasia, leukemia, lymphoma or metastatic disease. [place] 1. Postcontrast enha ncement involving the [...] hematopoietic hyperplasia, leukemia, lymphoma or metastatic disease. [place] Patient 8 : 1950 Age: 68 [...] the superficial subcutaneous fatty tissues also identified. [place] Otheron 04-08-2019 Interpretation and review of laboratory results Abnormal [place] Interpretation and review of laboratory results Abnormal [place] POCT Glucoseon 04-08-2019 Glucose [Mass/Vol] 294 mg/dL Critically high 60-115 [facility] Comment on above: Performed By: #### T S3C #### [facility] [address] [place] [address] POC Performed on ACCU-CHEK Normal [facility] Comment on above: Performed By: #### T S3C #### [facility] [address] [place] [address] Glucose [Mass/Vol] 294 mg/dL High 60 - 115 mg/dl [place] Performed on ACCU-CHEK [place] Glucose [Mass/Vol] 301 mg/dL Critically high 60-115 [facility] Comment on above: Performed By: #### T S3C #### [facility] [address] [place] [address] POC Performed on ACCU-CHEK Normal [facility] Comment on above: Performed By: #### T S3C #### [facility] [address] [place] [address] Glucose [Mass/Vol] 301 mg/dL High 60 - 115 mg/dl [place] Interpretation and review of laboratory results Abnormal [place] Performed on ACCU-CHEK [place] Glucose [Mass/Vol] 210 mg/dL Critically high 60-115 [facility] Comment on above: Performed By: #### A 1C #### [facility] [address] [place] [address] POC Performed on [facility] Normal [facility] Comment on above: Performed By: #### A 1C #### [facility] [address] [place] [address] Glucose [Mass/Vol] 210 mg/dL High 60 - 115 mg/dl [place] Interpretation and review of laboratory results Abnormal [place] Performed on ACCU-CHEK [place] Glucose [Mass/Vol] 214 mg/dL Critically high 60-115 [facility] Comment on above: Performed By: #### A 1C #### [facility] [address] [place] [address] POC [facility] Comment on above: Performed By: #### A 1C #### [facility] [address] [place] [address] Glucose [Mass/Vol] 214 mg/dL High 60 - 115 mg/dl [place] Interpretation and review of laboratory results Abnormal [place] Performed on ACCU-CHEK [place] POCT Venouson 04-08-2019 Creatinine [Mass/Vol] 1.7 mg/dL Critically high 0.8-1.3 [facility] Comment on above: Performed By: #### B MP #### [facility] [address] [place] [address] GFR/1.73 sq M predicted among blacks MDRD (S/P/Bld) [Vol rate/Area] 49 mL/min/{1.73_m2} Abnormal >60 [facility] Comment on above: Result Comment: >60 mL/min/1.73m2 EGFR, calc. for ages 18 and older using the MDRD formula (not corrected for weight), is valid for stable renal function. Performed By: #### B MP #### [facility] [address] [place] [address] GFR/1.73 sq M.predicted MDRD (S/P/Bld) [Vol rate/Area] 40 mL/min/{1.73_m2} Abnormal >60 [facility] Comment on above: Result Comment: >60 mL/min/1.73m2 EGFR, calc. for ages 18 and older using the MDRD formula (not corrected for weight), is valid for stable renal function. Performed By: #### B MP #### [facility] [address] [place] [address] Glucose [Mass/Vol] 233 mg/dL Critically high 60-115 [facility] Comment on above: Performed By: #### B MP #### [facility] [address] [place] [address] Hematocrit (Bld) [Volume fraction] 33 % Low 41-53 [facility] Comment on above: Performed By: #### B MP #### [facility] [address] [place] [address] Hemoglobin (Bld) [Mass/Vol] 11.2 g/dL Low 13.5-17.5 [facility] Comment on above: Performed By: #### B MP #### [facility] [address] [place] [address] Oxygen saturation in Blood 42 % Normal Not Establ [facility] Comment on above: Performed By: #### B MP #### [facility] [address] [place] [address] POC Calciuim Ionized 1.05 mmol/L Low 1.12-1.32 [facility] Comment on above: Performed By: #### B MP #### [facility] [address] [place] [address] POC Cl 101 mEq/L Normal 99-110 [facility] Comment on above: Performed By: #### B MP #### [facility] [address] [place] [address] POC FIO2 28.000 Normal [facility] Comment on above: Performed By: #### B MP #### [facility] [address] [place] [address] POC K 4.4 mEq/L Normal 3.5-5.1 [facility] Comment on above: Performed By: #### B MP #### [facility] [address] [place] [address] POC Lactic Acid 3.67 mmol/L Critically high 0.40-2.00 [facility] Comment on above: Performed By: #### B MP #### [facility] [address] [place] [address] POC Na 133 mEq/L Low 136-145 [facility] Comment on above: Performed By: #### B MP #### [facility] [address] [place] [address] POC Performed on SEE BELOW Normal [facility] Comment on above: Result Comment: Perf ormed on POC Sample Type: Venous Oxygen Delivery System: Cannula Performed By: #### B MP #### [facility] [address] [place] [address] POC Sample Type ROMERO Normal [facility] Comment on above: Performed By: #### B MP #### [facility] [address] [place] [address] POC Venous Base Excess -6 Low -3-3 [facility] Comment on above: Performed By: #### B MP #### [facility] [address] [place] [address] POC Venous HCO3 20.7 mmol/L Low 23.0-29.0 [facility] Comment on above: Performed By: #### B MP #### [facility] [address] [place] [address] POC Venous PCO2 43.9 mm Hg Normal 40.0-50.0 [facility] Comment on above: Performed By: #### B MP #### [facility] [address] [place] [address] POC Venous pH 7.282 Low 7.350-7.45 [facility] Comment on above: Performed By: #### B MP #### [facility] [address] [place] [address] POC Venous PO2 27 mm Hg Normal [facility] Comment on above: Performed By: #### B MP #### [facility] [address] [place] [address] POC Venous Total CO2 22 mmol/L Normal [facility] Comment on above: Performed By: #### B MP #### [facility] [address] [place] [address] Prothrombin Timeon 9 INR Coag (PPP) [Relative time] 1.2 {INR} Normal [facility] Comment on above: Result Comment: Warf brian Therapy INR Therapeutic: 2.0-3.0 With Mechanical Valve: >2.5 Low-intensity Therapeutic Range: 1.5-2.0 Mod-intensity Therapeutic Range: 2.0-3.0 High-intensity Therapeutic Range: 2.5-3.5 HIgh-intensity Therapeutic Range: 3.0-4.0 Common Critical/Alarm Value: 5.0 Common Upper Limit Reported: 10.0 Effective 11/26/2018: Please note methodology and/or reference ranges have changed. Performed By: #### A 1C #### [facility] [address] [place] [address] PT Coag (PPP) [Time] 15.4 s Critically high 12.3-14.9 [facility] Comment on above: Result Comment: Effe ctive 11/26/18 Please note methodology and/or reference ranges have changed. Performed By: #### A 1C #### [facility] [address] [place] [address] Protime-INRon 04-08-2019 INR Coag (PPP) [Relative time] 1.2 {INR} [place] Comment on above: Warfarin Therapy INR Therapeutic: 2.0-3.0 With Mechanical Valve: >2.5 Low-intensity Therapeutic Range: 1.5-2.0 Mod-intensity Therapeutic Range: 2.0-3.0 High-intensity Therapeutic Range: 2.5-3.5 HIgh-intensity Therapeutic Range: 3.0-4.0 Common Critical/Alarm Value: 5.0 Common Upper Limit Reported: 10.0 Effective 11/26/2018: Please note methodology and/or reference ranges have changed. PT Coag (PPP) [Time] 15.4 s High [place] Comment on above: Effective 11/26/18 Please note methodology and/or reference ranges have changed. XR CHEST PORTABLEon 04-08-20 19 Patient 8 : 1950 Age: 68 years Gender: Male Order Date: 04/07/2019 6:30 PM. Exam: XR CHEST PORTABLE Number of Views: 1 Indication: Fever Comparison: None. Findings: Cardiomediastinal silhouette is within normal limits. Lungs are clear without evidence of infiltrate/pneumonia, pneumothorax or pleural effusion [place], [place] Phillip, Woody Incoming R adiant Results From [employer] - 04/08/2019 7:15 AM EST Patient : 1950 Age: 68 years Gender: Male Order Date: 04/07/2019 6:30 PM. Exam: XR CHEST PORTABLE Number of Views: 1 Indication: Fever Comparison: None. Findings: Cardiomediastinal silhouette is within normal limits. Lungs are clear without evidence of infiltrate/pneumonia, pneumothorax or pleural effusion IMPRESSION: Impression: No radiographic evidence of acute cardiopulmonary disease [place] Impression: No radio graphic evidence of acute cardiopulmonary disease [place] APTTon 04-07-2019 aPTT Coag (Bld) [Time] 36.7 s [place] Comment on above: Effective 12/03/2018: Please note methodology and/or reference ranges have changed. aPTT - Heparin Therapeutic Range: 74.0 - 106 seconds Brain Natriuretic Peptideon 04-07-2019 Natriuretic peptide B (Bld) [Mass/Vol] 597 pg/mL [place] Comment on above: NT-pro BNP ACUTE [...] [#/Vol] 0.1 10*3/uL 0 - 0.2 K/uL [place] Basophils/100 WBC (Bld) 1.0 % [place] Eosinophils (Bld) [#/Vol] 0.4 10*3/uL 0 - 0.7 K/uL [place] Eosinophils/100 WBC (Bld) 3.1 % [place] Erythrocyte distribution width (RBC) [Ratio] 12.9 % 11.5 - 14.5 % [place] Hematocrit (Bld) [Volume fraction] 39.9 % Low 42 - 52 % [place] Hemoglobin (Bld) [Mass/Vol] 13.5 g/dL Low 14 - 18 g/dL [place] Interpretation and review of laboratory results Abnormal [place] Lymphocytes (Bld) [#/Vol] 1.6 10*3/uL 1 - 4.8 K/uL [place] Lymphocytes/100 WBC (Bld) 13.4 % [place] MCH (RBC) [Entitic mass] 30.7 pg 27 - 31.3 pg [place] MCHC (RBC) [Mass/Vol] 33.8 % 33 - 37 % [place] MCV (RBC) [Entitic vol] 90.7 fL 80 - 100 fL [place] Monocytes (Bld) [#/Vol] 0.9 10*3/uL High 0.2 - 0.8 K/uL [place] Monocytes/100 WBC (Bld) 7.9 % [place] Neutrophils Absolute 8.9 K/uL High 1.4 - 6.5 K/uL [place] Neutrophils/100 WBC (Bld) 74.6 % [place] Platelets (Bld) [#/Vol] 178 10*3/uL 130 - 400 K/uL [place] RBC (Bld) [#/Vol] 4.40 10*6/uL Low [place] WBC (Bld) [#/Vol] 11.9 10*3/uL High 4.8 - 10.8 K/uL [place] CBC With Platelet and Differ entialon 04-07-2019 Basophils (Bld) [#/Vol] 0.1 10*3/uL Normal 0.0-0.2 [facility] Comment on above: Performed By: #### C BCWD #### [facility] [address] [place] [address] Basophils/100 WBC (Bld) 1.0 % Normal [facility] Comment on above: Performed By: #### C BCWD #### [facility] [address] [place] [address] Eosinophils (Bld) [#/Vol] 0.4 10*3/uL Normal 0.0-0.7 [facility] Comment on above: Performed By: #### C BCWD #### [facility] [address] [place] [address] Eosinophils/100 WBC (Bld) 3.1 % Normal [facility] Comment on above: Performed By: #### C BCWD #### [facility] [address] [place] [address] Erythrocyte distribution width (RBC) [Ratio] 12.9 % Normal 11.5-14.5 [facility] Comment on above: Performed By: #### C BCWD #### [facility] [address] [place] [address] Hematocrit (Bld) [Volume fraction] 39.9 % Low 42.0-52.0 [facility] Comment on above: Performed By: #### C BCWD #### [facility] [address] [place] [address] Hemoglobin (Bld) [Mass/Vol] 13.5 g/dL Low 14.0-18.0 [facility] Comment on above: Performed By: #### C BCWD #### [facility] [address] [place] [address] Lymphocytes (Bld) [#/Vol] 1.6 10*3/uL Normal 1.0-4.8 [facility] Comment on above: Performed By: #### C BCWD #### [facility] [address] [place] [address] Lymphocytes/100 WBC (Bld) 13.4 % Normal [facility] Comment on above: Performed By: #### C BCWD #### [facility] [address] [place] [address] MCH (RBC) [Entitic mass] 30.7 pg Normal 27.0-31.3 [facility] Comment on above: Performed By: #### C BCWD #### [facility] [address] [place] [address] MCHC (RBC) [Mass/Vol] 33.8 % Normal 33.0-37.0 [facility] Comment on above: Performed By: #### C BCWD #### [facility] [address] [place] [address] MCV (RBC) [Entitic vol] 90.7 fL Normal 80.0-100.0 [facility] Comment on above: Performed By: #### C BCWD #### [facility] [address] [place] [address] Monocytes (Bld) [#/Vol] 0.9 10*3/uL Critically high 0.2-0.8 [facility] Comment on above: Performed By: #### C BCWD #### [facility] [address] [place] [address] Monocytes/100 WBC (Bld) 7.9 % Normal [facility] Comment on above: Performed By: #### C BCWD #### [facility] [address] [place] [address] Neutrophils (Bld) [#/Vol] 8.9 10*3/uL Critically high 1.4-6.5 [facility] Comment on above: Performed By: #### C BCWD #### [facility] [address] [place] [address] Neutrophils/100 WBC (Bld) 74.6 % Normal [facility] Comment on above: Performed By: #### C BCWD #### [facility] [address] [facility] [address] Platelets (Bld) [#/Vol] 178 10*3/uL Normal 130-400 [facility] Comment on above: Performed By: #### C BCWD #### [facility] [address] [facility] [place] [address] RBC (Bld) [#/Vol] 4.40 10*6/uL Low 4.70-6.10 [facility] Comment on above: Performed By: #### C BCWD #### [facility] [address] [facility] [place] [address] WBC (Bld) [#/Vol] 11.9 10*3/uL Critically high 4.8-10.8 [facility] Comment on above: Performed By: #### C BCWD #### [facility] [address] [place] [address] CKon 04-07-2019 Total CK 255 U/L High 0 - 190 U/L [facility], [place] CKMB & RELATIVE PERCENTon CK.MB [Mass/Vol] 0.7 % 0 - 3.5 % [place] CK.MB [Mass/Vol] 1.8 ng/mL 0 - 6.7 ng/mL [place] CKMB and Relative Percenton 04-07-2019 CK.MB [Mass/Vol] 0.7 % Normal 0.0-3.5 [facility] Comment on above: Performed By: #### B MP #### [facility] [address] [place] [address] CK.MB [Mass/Vol] 1.8 ng/mL Normal 0.0-6.7 [facility] Comment on above: Performed By: #### B MP #### [facility] [address] [place] [address] Comprehensive Metabolic Pane harmony 04-07-2019 Albumin [Mass/Vol] 3.7 g/dL Normal 3.5-4.6 [facility] Comment on above: Performed By: #### P T #### [facility] [address] [place] [address] ALP [Catalytic activity/Vol] 52 U/L Normal 35-104 [facility] Comment on above: Performed By: #### P T #### [facility] [address] [place] [address] ALT [Catalytic activity/Vol] 41 U/L Normal 0-41 [facility] Comment on above: Performed By: #### P T #### [facility] [address] [place] [address] Anion gap [Moles/Vol] 12 mmol/L Normal 9-15 [facility] Comment on above: Performed By: #### P T #### [facility] [address] [place] [address] AST [Catalytic activity/Vol] 27 U/L Normal 0-40 [facility] Comment on above: Performed By: #### P T #### [facility] [address] [place] [address] Bilirubin [Mass/Vol] 2.6 mg/dL Critically high 0.2-0.7 [facility] Comment on above: Performed By: #### P T #### [facility] [address] [place] [address] Calcium [Mass/Vol] 8.9 mg/dL Normal 8.5-9.9 [facility] Comment on above: Performed By: #### P T #### [facility] [address] [place] [address] Chloride [Moles/Vol] 93 mmol/L Low 95-107 [facility] Comment on above: Performed By: #### P T #### [facility] [address] [place] [address] CO2 [Moles/Vol] 23 mmol/L Normal 20-31 [facility] Comment on above: Performed By: #### P T #### [facility] [address] [place] [address] Creatinine [Mass/Vol] 1.97 mg/dL Critically high 0.70-1.20 [facility] Comment on above: Performed By: #### P T #### [facility] [address] [place] [address] GFR/1.73 sq M predicted among blacks MDRD (S/P/Bld) [Vol rate/Area] 41.0 mL/min/{1.73_m2} Low >60 [facility] Comment on above: Result Comment: >60 mL/min/1.73m2 EGFR, calc. for ages 18 and older using the MDRD formula (not corrected for weight), is valid for stable renal function. Performed By: #### P T #### [facility] [address] [place] [address] GFR/1.73 sq M.predicted MDRD (S/P/Bld) [Vol rate/Area] 33.9 mL/min/{1.73_m2} Low >60 [facility] Comment on above: Result Comment: >60 mL/min/1.73m2 EGFR, calc. for ages 18 and older using the MDRD formula (not corrected for weight), is valid for stable renal function. Performed By: #### P T #### [facility] [address] [place] [address] Globulin (S) [Mass/Vol] 3.0 g/dL Normal 2.3-3.5 [facility] Comment on above: Performed By: #### P T #### [facility] [address] [place] [address] Glucose [Mass/Vol] 281 mg/dL Critically high 70-99 [facility] Comment on above: Performed By: #### P T #### [facility] [address] [place] [address] Potassium [Moles/Vol] 5.9 mmol/L Critically high 3.4-4.9 [facility] Comment on above: Performed By: #### P T #### [facility] [address] [place] [address] Protein [Mass/Vol] 6.7 g/dL Normal 6.3-8.0 [facility] Comment on above: Performed By: #### P T #### [facility] [address] [place] [address] Sodium [Moles/Vol] 128 mmol/L Low 135-144 [facility] Comment on above: Performed By: #### P T #### [facility] [address] [place] [address] Urea nitrogen [Mass/Vol] 20 mg/dL Normal 8-23 [facility] Comment on above: Performed By: #### P T #### [facility] [address] [place] [address] Albumin [Mass/Vol] 3.7 g/dL 3.5 - 4.6 g/dL [place] ALP [Catalytic activity/Vol] 52 U/L 35 - 104 U/L [facility], [place] ALT [Catalytic activity/Vol] 41 U/L 0 - 41 U/L [place] Anion gap [Moles/Vol] 12 mmol/L [place] AST [Catalytic activity/Vol] 27 U/L 0 - 40 U/L [place] Bilirubin Ql (U) 2.6 mg/dL High 0.2 - 0.7 mg/dL [place] Calcium [Mass/Vol] 8.9 mg/dL 8.5 - 9.9 mg/dL [place] Chloride [Moles/Vol] 93 mmol/L Low [place] CO2 [Moles/Vol] 23 mmol/L [place] Creatinine [Mass/Vol] 1.97 mg/dL High 0.7 - 1.2 mg/dL [place] GFR 41 Low >60 [place] Comment on above: >60 mL/min/1.73m2 EG FR, calc. for ages 18 and older using the MDRD formula (not corrected for weight), is valid for stable renal function. GFR Non- 33.9 Low >60 [place] Comment on above: >60 mL/min/1.73m2 EG FR, calc. for ages 18 and older using the MDRD formula (not corrected for weight), is valid for stable renal function. Globulin (S) [Mass/Vol] 3 g/dL 2.3 - 3.5 g/dL [place] Glucose [Mass/Vol] 281 mg/dL High 70 - 99 mg/dL [place] Potassium [Moles/Vol] 5.9 mmol/L [place] Protein [Mass/Vol] 6.7 g/dL 6.3 - 8 g/dL [place] Sodium [Moles/Vol] 128 mmol/L Low [place] Urea nitrogen [Mass/Vol] 20 mg/dL 8 - 23 mg/dL [place] Creatine Kinaseon 04-07-2019 CK [Catalytic activity/Vol] 255 U/L Critically high 0-190 [facility] Comment on above: Performed By: #### P T #### [facility] [address] [place] [address] Culture, Blood 2on 9 Culture, Blood 2 OR DERED BY: JOSE DAVID DAMIAN SOURCE: Blood COLLECTED: 04/07/19 18:56 ANTIBIOTICS AT JIMENA.: RECEIVED : 04/07/19 19:04 Culture, Blood 2 FINAL 04/12/19 20:15 No growth after 5 days of incubation. Normal [facility] Comment on above: Performed By: #### T S3C #### [facility] [address] [facility] [address] Culture, Urineon 04-07-2019 Culture, Urine OR DERED BY: JOSE DAVID DAMIAN SOURCE: Urine Clean Catch COLLECTED: 04/07/19 18:30 ANTIBIOTICS AT JIMENA.: RECEIVED : 04/07/19 21:27 Culture, Urine FINAL 04/09/19 10:13 No growth 24 hours Normal [facility] Comment on above: Performed By: #### P GLU #### [facility] [address] [facility] [address] Lactate, Sepsison 04-07-2019 Lactate, Sepsis 3.4 mmol/L Critically high 0.5-1.9 [facility] Comment on above: Order Comment: CALL [facility] tel. [phone],Lactic acid result called to and read back by ROSA Damian, 04/07/2019 19:56,by VIANEY Performed By: #### B MP #### [facility] [address] [facility] [address] Interpretation and review of laboratory results Abnormal [place] Lactic Acid, Sepsis 3.4 mmol/L Critically high 0.5 - 1.9 mmol/L [place] CALL [facility] tel. [phone], Lactic acid result called to and read back by ROSA Damian, 04/07/2019 19:56, by VIANEY [place] Lactic Acidon 04-07-2019 Lactate [Moles/Vol] 2.9 mmol/L Critically high 0.5-2.2 [facility] Comment on above: Performed By: #### B MP #### [facility] [address] [place] [address] Lactic Acid, Plasmaon 2018 Interpretation and review of laboratory results Abnormal [place] Lactate [Moles/Vol] 2.9 mmol/L High 0.5 - 2.2 mmol/L [place] Lipaseon 04-07-2019 Lipase [Catalytic activity/Vol] 25 U/L Normal 12-95 [facility] Comment on above: Performed By: #### P T #### [facility] [address] [place] [address] Lipase [Catalytic activity/Vol] 25 U/L 12 - 95 U/L [place] MRI LUMBAR SPINE W WO CONTRA [...] Fabio Bautista MD 04/08/19 Final result Normal [facility] Magnesiumon 04-07-2019 Magnesium [Mass/Vol] 1.7 mg/dL Normal 1.7-2.4 [facility] Comment on above: Performed By: #### P T #### [facility] [address] [place] [address] Magnesium [Mass/Vol] 1.7 mg/dL 1.7 - 2.4 mg/dL [place] Microscopic Urinalysison Bacteria, UA Negative /HPF [place] Epi Cells 0-2 [place] Hyaline Casts, UA 5-10 [place] RBC (U) [#/Vol] 0-2 [place] WBC, UA 0-2 [place] Otheron 04-07-2019 Interpretation and review of laboratory results Abnormal [place] Interpretation and review of laboratory results Abnormal [place] POCT Venouson 04-07-2019 Base Excess, Romero -6 Low [place] Calcium [Mass/Vol] 1.05 mmol/L Low 1.12 - 1.32 mmol/L [place] Chloride [Moles/Vol] 101 mmol/L [place] Creatinine [Mass/Vol] 1.7 mg/dL High 0.8 - 1.3 mg/dL [place] FIO2 28 [place] GFR 49 Abnormal >60 [place] Comment on above: >60 mL/min/1.73m2 EG FR, calc. for ages 18 and older using the MDRD formula (not corrected for weight), is valid for stable renal function. GFR Non- 40 Abnormal >60 [place] Comment on above: >60 mL/min/1.73m2 EG FR, calc. for ages 18 and older using the MDRD formula (not corrected for weight), is valid for stable renal function. Glucose [Mass/Vol] 233 mg/dL High 60 - 115 mg/dl [place] HCO3, Venous 20.7 mmol/L Low 23 - 29 mmol/L [place] Hematocrit (Bld) [Volume fraction] 33 % Low 41 - 53 % [place] Hemoglobin (Bld) [Mass/Vol] 11.2 g/dL [place] Interpretation and review of laboratory results Abnormal [place] Lactate [Moles/Vol] 3.67 mmol/L High 0.4 - 2 mmol/L [place] Oxygen saturation in Blood 42 % Not Established [place] pCO2, Romero 43.9 [place] Performed on SEE BELOW [place] Comment on above: Performed on POC Sample Type: Venous Oxygen Delivery System: Cannula pH, Romero 7.282 Low [place] pO2, Romero 27 Not Established mm Hg [place] Potassium [Moles/Vol] 4.4 mmol/L [place] Sample Type ROMERO [place] Sodium [Moles/Vol] 133 mmol/L Low [place] TC02 (Calc), Romero 22 mmol/L Not Established [place] Partial Thromboplastin Timeo n 04-07-2019 aPTT Coag (Bld) [Time] 36.7 s Normal 24.4-36.8 [facility] Comment on above: Result Comment: Effe ctive 12/03/2018: Please note methodology and/or reference ranges have changed. aPTT - Heparin Therapeutic Range: 74.0 - 106 seconds Performed By: #### P T #### [facility] [address] [place] [address] Procalcitoninon 04-07-2019 Procalcitonin 0.55 ng/mL Critically high 0.00-0.15 [facility] Comment on above: Result Comment: Refe gela Range: Adults: <=0.15 ng/mL Children: 0-18 hours [...] failure. Performed By: #### P T #### [facility] [address] [place] [address] Procalcitonin 0.55 ng/mL High 0 - 0.15 ng/mL [place] Comment on above: Reference Range: Adults: [...] Coag (PPP) [Relative time] 1.2 {INR} Normal [facility] Comment on above: Result Comment: Warf brian Therapy INR Therapeutic: 2.0-3.0 With Mechanical Valve: >2.5 Low-intensity Therapeutic Range: 1.5-2.0 Mod-intensity Therapeutic Range: 2.0-3.0 High-intensity Therapeutic Range: 2.5-3.5 HIgh-intensity Therapeutic Range: 3.0-4.0 Common Critical/Alarm Value: 5.0 Common Upper Limit Reported: 10.0 Effective 11/26/2018: Please note methodology and/or reference ranges have changed. Performed By: #### P T #### [facility] [address] [place] [address] PT Coag (PPP) [Time] 15.7 s Critically high 12.3-14.9 [facility] Comment on above: Result Comment: Effe ctive 11/26/18 Please note methodology and/or reference ranges have changed. Performed By: #### P T #### [facility] [address] [place] [address] Protime-INRon 04-07-2019 INR Coag (PPP) [Relative time] 1.2 {INR} [place] Comment on above: Warfarin Therapy INR Therapeutic: 2.0-3.0 With Mechanical Valve: >2.5 Low-intensity Therapeutic Range: 1.5-2.0 Mod-intensity Therapeutic Range: 2.0-3.0 High-intensity Therapeutic Range: 2.5-3.5 HIgh-intensity Therapeutic Range: 3.0-4.0 Common Critical/Alarm Value: 5.0 Common Upper Limit Reported: 10.0 Effective 11/26/2018: Please note methodology and/or reference ranges have changed. Interpretation and review of laboratory results Abnormal [place] PT Coag (PPP) [Time] 15.7 s High [place] Comment on above: Effective 11/26/18 Please note methodology and/or reference ranges have changed. Rapid Influenza A/B Antigens on 04-07-2019 Influenza A by PCR Negative [place] Comment on above: Effective 01/07/19 Please note methodology and/or reference ranges have changed. Influenza B by PCR Negative [place] Comment on above: Effective 01/07/19 Please note methodology and/or reference ranges have changed. TSH w/out Reflexon 9 TSH Qn 4.350 uIU/mL Critically high 0.440-3.86 [facility] Comment on above: Performed By: #### P T #### [facility] [address] [place] [address] TSH without Reflexon 019 TSH Qn 4.350 m[IU]/L [place] Troponinon 04-07-2019 Troponin I.cardiac [Mass/Vol] ng/mL Normal 0.000-0.01 [facility] Comment on above: Result Comment: Meth odology by Troponin T. Performed By: #### P T #### [facility] [address] [place] [address] Troponin I.cardiac [Mass/Vol] ng/mL 0 - 0.01 ng/mL [place] Comment on above: Methodology by Sunday Muir Urinalysis Reflex to Culture on 04-07-2019 Bilirubin Urine SMALL Abnormal Negative [place] Blood, Urine Negative Negative [place] Clarity, UA Clear Clear [place] Color, UA ORANGE Abnormal Straw/Yellow [place] Glucose, Ur 250 mg/dL Abnormal Negative [place] Interpretation and review of laboratory results Abnormal [place] Ketones Ql (U) TRACE Abnormal Negative mg/dL [place] Leukocyte esterase Test strip Ql (U) Negative Negative [place] Nitrite, Urine Negative Negative [place] pH, UA 5.0 [place] Protein (U) [Mass/Vol] 30 mg/dL Abnormal Negative [place] Specific [place], UA 1.025 [place] Urine Reflex to Culture YES [place] Urobilinogen, Urine 1.0 <2.0 E.U./dL [place] Urinalysis, reflex to cultur fabiola 04-07-2019 Bilirubin Ql (U) SMALL Abnormal Negative [facility] Comment on above: Performed By: #### B MP #### [facility] [address] [place] [address] Clarity (U) Clear Normal Clear [facility] Comment on above: Performed By: #### B MP #### [facility] [address] [place] [address] Color (U) ORANGE Abnormal Straw/Kimble [facility] Comment on above: Performed By: #### B MP #### [facility] [address] [place] [address] Glucose Ql (U) 250 mg/dL Abnormal Negative [facility] Comment on above: Performed By: #### B MP #### [facility] [address] [place] [address] Hemoglobin Ql (U) Negative Normal Negative [facility] Comment on above: Performed By: #### B MP #### [facility] [address] [place] [address] Ketones Ql (U) TRACE Abnormal Negative [facility] Comment on above: Performed By: #### B MP #### [facility] [address] [place] [address] Leukocyte esterase Test strip Ql (U) Negative Normal Negative [facility] Comment on above: Performed By: #### B MP #### [facility] [address] [place] [address] Nitrite Ql (U) Negative Normal Negative [facility] Comment on above: Performed By: #### B MP #### [facility] [address] [place] [address] pH (U) 5.0 [pH] Normal 5.0-9.0 [facility] Comment on above: Performed By: #### B MP #### [facility] [address] [place] [address] Protein Ql (U) 30 mg/dL Abnormal Negative [facility] Comment on above: Performed By: #### B MP #### [facility] [address] [place] [address] Specific gravity (U) [Rel density] 1.025 Normal 1.005-1.03 [facility] Comment on above: Performed By: #### B MP #### [facility] [address] [place] [address] Urine Reflexed to Culture YES Normal [facility] Comment on above: Performed By: #### B MP #### [facility] [address] [place] [address] Urobilinogen Qn (U) 1.0 {Yared'U}/dL Normal < 2.0 [facility] Comment on above: Performed By: #### B MP #### [facility] [address] [place] [address] Urine Microscopicon 04-07-20 19 Bacteria LM.HPF (Urine sed) [#/Area] Negative Normal [facility] Comment on above: Performed By: #### B MP #### [facility] [address] [place] [address] RBC (U) [#/Vol] 0-2 Normal 0-5 [facility] Comment on above: Performed By: #### B MP #### [facility] [address] [place] [address] Urine Epithelial Cells Auto 0-2 Normal 0-5 [facility] Comment on above: Performed By: #### B MP #### [facility] [address] [place] [address] Urine Hyaline Casts Auto 5-10 Normal 0-5 [facility] Comment on above: Performed By: #### B MP #### [facility] [address] [place] [address] Urine WBC Auto 0-2 Normal 0-5 [facility] Comment on above: Performed By: #### B MP #### [facility] [address] [place] [address] XR CHEST PORTABLEon 04-07-20 19 XR CHEST [...] Fabio Bautista MD 04/08/19 Final result Normal [facility] proBNPon 04-07-2019 Natriuretic peptide B (Bld) [Mass/Vol] 597 pg/mL Normal [facility] Comment on above: Result Comment: NT-p ro [...] 2006;27:330-337 Performed By: #### P T #### [facility] [address] [facility] [address] [place] LESS THAN 1 HOURon 2018 [place] [...] Fabio Bautista MD 04/06/19 Final result Normal [facility] POCT Glucoseon 04-05-2019 Glucose [Mass/Vol] 164 mg/dL Critically high 60-115 [facility] Comment on above: Performed By: #### P GLU #### [facility] [address] [place] [address] POC Performed on ACCU-CHEK Normal [facility] Comment on above: Performed By: #### P GLU #### [facility] [address] [place] [address] Glucose [Mass/Vol] 164 mg/dL High 60 - 115 mg/dl [place] Interpretation and review of laboratory results Abnormal [place] Performed on ACCU-CHEK [place] Glucose [Mass/Vol] 189 mg/dL Critically high 60-115 [facility] Comment on above: Performed By: #### P GLU #### [facility] [address] [place] [address] POC Performed on ACCU-CHEK [facility] [place] Comment on above: Performed By: #### P GLU #### [facility] [address] [place] [address] Glucose [Mass/Vol] 189 mg/dL High 60 - 115 mg/dl [place] Interpretation and review of laboratory results Abnormal [place] Performed on ACCU-CHEK [place] Prothrombin Timeon 9 INR Coag (PPP) [Relative time] 1.0 {INR} Normal [facility] Comment on above: Result Comment: Warf brian Therapy INR Therapeutic: 2.0-3.0 With Mechanical Valve: >2.5 Low-intensity Therapeutic Range: 1.5-2.0 Mod-intensity Therapeutic Range: 2.0-3.0 High-intensity Therapeutic Range: 2.5-3.5 HIgh-intensity Therapeutic Range: 3.0-4.0 Common Critical/Alarm Value: 5.0 Common Upper Limit Reported: 10.0 Effective 11/26/2018: Please note methodology and/or reference ranges have changed. Performed By: #### P T #### [facility] [address] [place] [address] PT Coag (PPP) [Time] 13.4 s Normal 12.3-14.9 [facility] Comment on above: Result Comment: Effe ctive 11/26/18 Please note methodology and/or reference ranges have changed. Performed By: #### P T #### [facility] [address] [place] [address] Protime-INRon 04-05-2019 INR Coag (PPP) [Relative time] 1.0 {INR} [place] Comment on above: Warfarin Therapy INR Therapeutic: 2.0-3.0 With Mechanical Valve: >2.5 Low-intensity Therapeutic Range: 1.5-2.0 Mod-intensity Therapeutic Range: 2.0-3.0 High-intensity Therapeutic Range: 2.5-3.5 HIgh-intensity Therapeutic Range: 3.0-4.0 Common Critical/Alarm Value: 5.0 Common Upper Limit Reported: 10.0 Effective 11/26/2018: Please note methodology and/or reference ranges have changed. PT Coag (PPP) [Time] 13.4 s [place] Comment on above: Effective 11/26/18 Please note methodology and/or reference ranges have changed. EKG 12 Leadon 04-01-2019 Atrial Rate 76 BPM [place] P [place] 47 degrees [facility], [place] P-R Interval 178 ms [place] Q-T Interval 378 ms [facility], [place] QRS Duration 80 ms [place] QTc Calculation (Bazett) 425 ms [place] R [place] -2 degrees [facility], [place] T [place] 22 degrees [facility], [place] Ventricular Rate 76 BPM [place] Normal sinus rhythm Cannot rule out Inferior infarct , age undetermined Abnormal ECG No previous ECGs available Confirmed by Juan Vitale ([id number]) on 04/01/2019 7:17:49 AM [facility], [place], [place] Incoming R esults From [place] [employer] - 04/01/2019 7:18 AM EST Normal sinus rhythm Cannot rule out Inferior infarct , age undetermined Abnormal ECG No previous ECGs available Confirmed by Juan Vitale ([id number]) on 04/01/2019 7:17:49 AM [facility], [place] Basic Metabolic Panelon 03-19 Calcium [Mass/Vol] 9.0 mg/dL Normal 8.5-9.9 [facility] Comment on above: Performed By: #### B MP #### [facility] [address] [place] [address] Chloride [Moles/Vol] 98 mmol/L Normal 95-107 [facility] Comment on above: Performed By: #### B MP #### [facility] [address] [place] [address] CO2 [Moles/Vol] 25 mmol/L Normal 20-31 [facility] Comment on above: Performed By: #### B MP #### [facility] [address] [place] [address] Creatinine [Mass/Vol] 1.72 mg/dL Critically high 0.70-1.20 [facility] Comment on above: Performed By: #### B MP #### [facility] [address] [place] [address] GFR/1.73 sq M predicted among blacks MDRD (S/P/Bld) [Vol rate/Area] 48.0 mL/min/{1.73_m2} Low >60 [facility] Comment on above: Result Comment: >60 mL/min/1.73m2 EGFR, calc. for ages 18 and older using the MDRD formula (not corrected for weight), is valid for stable renal function. Performed By: #### B MP #### [facility] [address] [place] [address] GFR/1.73 sq M.predicted MDRD (S/P/Bld) [Vol rate/Area] 39.7 mL/min/{1.73_m2} Low >60 [facility] Comment on above: Result Comment: >60 mL/min/1.73m2 EGFR, calc. for ages 18 and older using the MDRD formula (not corrected for weight), is valid for stable renal function. Performed By: #### B MP #### [facility] [address] [place] [address] Glucose [Mass/Vol] 367 mg/dL Critically high 70-99 [facility] Comment on above: Performed By: #### B MP #### [facility] [address] [place] [address] Potassium [Moles/Vol] 4.5 mmol/L Normal 3.4-4.9 [facility] Comment on above: Performed By: #### B MP #### [facility] [address] [place] [address] Sodium [Moles/Vol] 136 mmol/L Normal 135-144 [facility] Comment on above: Performed By: #### B MP #### [facility] [address] [place] [address] Urea nitrogen [Mass/Vol] 23 mg/dL Normal 8-23 [facility] Comment on above: Performed By: #### B MP #### [facility] [address] [place] [address] Anion gap [Moles/Vol] 13 mmol/L Normal 9-15 [facility] Comment on above: Performed By: #### B MP #### [facility] [address] [place] [address] Anion gap [Moles/Vol] 13 mmol/L [place] Calcium [Mass/Vol] 9.0 mg/dL 8.5 - 9.9 mg/dL [place] Chloride [Moles/Vol] 98 mmol/L [place] CO2 [Moles/Vol] 25 mmol/L [place] Creatinine [Mass/Vol] 1.72 mg/dL High 0.7 - 1.2 mg/dL [place] GFR 48 Low >60 [place] Comment on above: >60 mL/min/1.73m2 EG FR, calc. for ages 18 and older using the MDRD formula (not corrected for weight), is valid for stable renal function. GFR Non- 39.7 Low >60 [place] Comment on above: >60 mL/min/1.73m2 EG FR, calc. for ages 18 and older using the MDRD formula (not corrected for weight), is valid for stable renal function. Glucose [Mass/Vol] 367 mg/dL High 70 - 99 mg/dL [place] Interpretation and review of laboratory results Abnormal [place] Potassium [Moles/Vol] 4.5 mmol/L [place] Sodium [Moles/Vol] 136 mmol/L [place] Urea nitrogen [Mass/Vol] 23 mg/dL 8 - 23 mg/dL [place] CBCon 03-30-2019 Erythrocyte distribution width (RBC) [Ratio] 12.7 % 11.5 - 14.5 % [place] Hematocrit (Bld) [Volume fraction] 42.4 % 42 - 52 % [place] Hemoglobin (Bld) [Mass/Vol] 14.3 g/dL 14 - 18 g/dL [place] Interpretation and review of laboratory results Abnormal [place] MCH (RBC) [Entitic mass] 30.8 pg 27 - 31.3 pg [place] MCHC (RBC) [Mass/Vol] 33.7 % 33 - 37 % [place] MCV (RBC) [Entitic vol] 91.3 fL 80 - 100 fL [place] Platelets (Bld) [#/Vol] 213 10*3/uL 130 - 400 K/uL [place] RBC (Bld) [#/Vol] 4.65 10*6/uL Low [place] WBC (Bld) [#/Vol] 8.2 10*3/uL 4.8 - 10.8 K/uL [place] CBC With Platelet No Differe ntialon 03-30-2019 Erythrocyte distribution width (RBC) [Ratio] 12.7 % Normal 11.5-14.5 [facility] Comment on above: Performed By: #### C BCND #### [facility] [address] [place] [address] Hematocrit (Bld) [Volume fraction] 42.4 % Normal 42.0-52.0 [facility] Comment on above: Performed By: #### C BCND #### [facility] [address] [place] [address] Hemoglobin (Bld) [Mass/Vol] 14.3 g/dL Normal 14.0-18.0 [facility] Comment on above: Performed By: #### C BCND #### [facility] [address] [place] [address] MCH (RBC) [Entitic mass] 30.8 pg Normal 27.0-31.3 [facility] Comment on above: Performed By: #### C BCND #### [facility] [address] [place] [address] MCHC (RBC) [Mass/Vol] 33.7 % Normal 33.0-37.0 [facility] Comment on above: Performed By: #### C BCND #### [facility] [address] [place] [address] MCV (RBC) [Entitic vol] 91.3 fL Normal 80.0-100.0 [facility] Comment on above: Performed By: #### C BCND #### [facility] [address] [place] [address] Platelets (Bld) [#/Vol] 213 10*3/uL Normal 130-400 [facility] Comment on above: Performed By: #### C BCND #### [facility] [address] [place] [address] RBC (Bld) [#/Vol] 4.65 10*6/uL Low 4.70-6.10 [facility] Comment on above: Performed By: #### C BCND #### [facility] [address] [place] [address] WBC (Bld) [#/Vol] 8.2 10*3/uL Normal 4.8-10.8 [facility] Comment on above: Performed By: #### C BCND #### [facility] [address] [place] [address] Hemoglobin A1Con 03-30-2019 HbA1c (Bld) [Mass fraction] 9.8 % High 4.8 - 5.9 % [place] Interpretation and review of laboratory results Abnormal [place] Hemoglobin A1con 03-30-2019 HbA1c (Bld) [Mass fraction] 9.8 % Critically high 4.8-5.9 [facility] Comment on above: Performed By: #### A 1C #### [facility] [address] [place] [address] Prothrombin Timeon 9 INR Coag (PPP) [Relative time] 1.9 {INR} Normal [facility] Comment on above: Result Comment: Warf brian Therapy INR Therapeutic: 2.0-3.0 With Mechanical Valve: >2.5 Low-intensity Therapeutic Range: 1.5-2.0 Mod-intensity Therapeutic Range: 2.0-3.0 High-intensity Therapeutic Range: 2.5-3.5 HIgh-intensity Therapeutic Range: 3.0-4.0 Common Critical/Alarm Value: 5.0 Common Upper Limit Reported: 10.0 Effective 11/26/2018: Please note methodology and/or reference ranges have changed. Performed By: #### P T #### [facility] [address] [place] [address] PT Coag (PPP) [Time] 22.6 s Critically high 12.3-14.9 [facility] Comment on above: Result Comment: Effe ctive 11/26/18 Please note methodology and/or reference ranges have changed. Performed By: #### P T #### [facility] [address] [place] [address] Protime-INRon 03-30-2019 INR Coag (PPP) [Relative time] 1.9 {INR} [place] Comment on above: Warfarin Therapy INR Therapeutic: 2.0-3.0 With Mechanical Valve: >2.5 Low-intensity Therapeutic Range: 1.5-2.0 Mod-intensity Therapeutic Range: 2.0-3.0 High-intensity Therapeutic Range: 2.5-3.5 HIgh-intensity Therapeutic Range: 3.0-4.0 Common Critical/Alarm Value: 5.0 Common Upper Limit Reported: 10.0 Effective 11/26/2018: Please note methodology and/or reference ranges have changed. Interpretation and review of laboratory results [facility] ([facility]P) [Time] 22.6 s High [facility] [place] Comment on above: Effective 11/26/18 Please note methodology and/or reference ranges have changed. TYPE AND SCREENon 03-30-2019 ABO/Rh Positive [facility] [place] Type and Screen Capture 3 sc rn cellon 03-30-2019 Type and Screen Capture 3 scrn cell PATIENT: ABRAHAM Shrestha LOC: [facility] BILL# : [id number] : 1950 SEX: M ORDERED BY: HAYDER Orourke ORDERED : 03/30/2019 12:58 COLLECTED: 03/30/2019 13:32 ORDER : [id number] RECEIVED : 03/30/2019 13:32 TEST NAME RESULT UNITS RANGES ABN FL ST ABORH Capture A POS F Antibody 3 Cell Scrn Captu NEG F Normal [facility] Comment on above: Performed By: #### T S3C #### [facility] [address] [place] [id number] CBC AND DIFFERENTIALon 04-08 % AUTOMATED IMMATURE GRAN Canceled Normal [facility] Comment on above: Order Comment: TEST CBC AND DIFFERENTIAL WAS CANCELLED, 04/08/2018 04:30 ?Cancel Reason:Patient Discharged. Result Comment: Perc ent differential counts (%) should be interpreted in the context of the absolute cell counts (cells/L). Performed By: #### C BC ####[id number] [place] [address] % NEUTROPHIL Canceled Normal [facility] Comment on above: Order Comment: TEST CBC AND DIFFERENTIAL WAS CANCELLED, 04/08/2018 04:30 ?Cancel Reason:Patient Discharged. Performed By: #### C BC ####[id number] [place] [address] Basophils/100 WBC Auto (Bld) Canceled Normal [facility] Comment on above: Order Comment: TEST CBC AND DIFFERENTIAL WAS CANCELLED, 04/08/2018 04:30 ?Cancel Reason:Patient Discharged. Performed By: #### C BC ####[id number] [place] [address] DIFFERENTIAL Canceled Normal [facility] Comment on above: Order Comment: TEST CBC AND DIFFERENTIAL WAS CANCELLED, 04/08/2018 04:30 ?Cancel Reason:Patient Discharged. Performed By: #### C BC ####[id number] [place] [address] Eosinophils Auto #/vol (Bld) Canceled Normal [facility] Comment on above: Order Comment: TEST CBC AND DIFFERENTIAL WAS CANCELLED, 04/08/2018 04:30 ?Cancel Reason:Patient Discharged. Performed By: #### C BC ####[id number] [place] [address] Eosinophils/100 WBC Auto (Bld) Canceled Normal [facility] Comment on above: Order Comment: TEST CBC AND DIFFERENTIAL WAS CANCELLED, 04/08/2018 04:30 ?Cancel Reason:Patient Discharged. Performed By: #### C BC ####[id number] [place] [address] Erythrocyte distribution width Auto Ratio (RBC) Canceled Normal [facility] Comment on above: Order Comment: TEST CBC AND DIFFERENTIAL WAS CANCELLED, 04/08/2018 04:30 ?Cancel Reason:Patient Discharged. Performed By: #### C BC ####[id number] [place] [address] Hematocrit Auto Volume Fraction (Bld) Canceled Normal [facility] Comment on above: Order Comment: TEST CBC AND DIFFERENTIAL WAS CANCELLED, 04/08/2018 04:30 ?Cancel Reason:Patient Discharged. Performed By: #### C BC ####[id number] [place] [address] Hemoglobin mass conc (Bld) Canceled Normal [facility] Comment on above: Order Comment: TEST CBC AND DIFFERENTIAL WAS CANCELLED, 04/08/2018 04:30 ?Cancel Reason:Patient Discharged. Performed By: #### C BC ####[id number] [place] [address] Lymphocytes Auto #/vol (Bld) Canceled Normal [facility] Comment on above: Order Comment: TEST CBC AND DIFFERENTIAL WAS CANCELLED, 04/08/2018 04:30 ?Cancel Reason:Patient Discharged. Performed By: #### C BC ####[id number] [place] [address] Lymphocytes/100 WBC Auto (Bld) Canceled Normal [facility] Comment on above: Order Comment: TEST CBC AND DIFFERENTIAL WAS CANCELLED, 04/08/2018 04:30 ?Cancel Reason:Patient Discharged. Performed By: #### C BC ####[id number] [place] [address] MCHC Auto mass conc (RBC) Canceled Normal [facility] Comment on above: Order Comment: TEST CBC AND DIFFERENTIAL WAS CANCELLED, 04/08/2018 04:30 ?Cancel Reason:Patient Discharged. Performed By: #### C BC ####[id number] [place] [address] MCV Auto Entitic volume (RBC) Canceled Normal [facility] Comment on above: Order Comment: TEST CBC AND DIFFERENTIAL WAS CANCELLED, 04/08/2018 04:30 ?Cancel Reason:Patient Discharged. Performed By: #### C BC ####[id number] [place] [address] Monocytes Auto #/vol (Bld) Canceled Normal [facility] Comment on above: Order Comment: TEST CBC AND DIFFERENTIAL WAS CANCELLED, 04/08/2018 04:30 ?Cancel Reason:Patient Discharged. Performed By: #### C BC ####[id number] [place] [address] Neutrophils Auto #/vol (Bld) Canceled Normal [facility] Comment on above: Order Comment: TEST CBC AND DIFFERENTIAL WAS CANCELLED, 04/08/2018 04:30 ?Cancel Reason:Patient Discharged. Performed By: #### C BC ####[id number] [place] [address] Nucleated RBC/100 WBC Ratio (Bld) Canceled Normal [facility] Comment on above: Order Comment: TEST CBC AND DIFFERENTIAL WAS CANCELLED, 04/08/2018 04:30 ?Cancel Reason:Patient Discharged. Performed By: #### C BC ####[id number] [place] [address] Platelets Auto #/vol (Bld) Canceled Normal [facility] Comment on above: Order Comment: TEST CBC AND DIFFERENTIAL WAS CANCELLED, 04/08/2018 04:30 ?Cancel Reason:Patient Discharged. Performed By: #### C BC ####[id number] [place] [address] RBC Auto #/vol (Bld) Canceled Normal [facility] Comment on above: Order Comment: TEST CBC AND DIFFERENTIAL WAS CANCELLED, 04/08/2018 04:30 ?Cancel Reason:Patient Discharged. Performed By: #### C BC ####[id number] [place] [address] WBC Auto #/vol (Bld) Canceled Normal [facility] Comment on above: Order Comment: TEST CBC AND DIFFERENTIAL WAS CANCELLED, 04/08/2018 04:30 ?Cancel Reason:Patient Discharged. Performed By: #### C BC ####[id number] [place] [address] MAGNESIUMon 04-08-2018 Magnesium mass conc Canceled Normal [facility] Comment on above: Order Comment: TEST MAGNESIUM WAS CANCELLED, 04/08/2018 04:30 ?Cancel Reason: PatientDischarged. Performed By: #### C BC ####[id number] [place] [address] PT/INRon 04-08-2018 INR Coag RelTime (PPP) Canceled Normal [facility] Comment on above: Order Comment: TEST PT/INR WAS CANCELLED, 04/08/2018 04:30 ?Cancel Reason: PatientDischarged. Performed By: #### C BC ####[id number] [place] [address] Prothrombin time (PT) Coag time (PPP) Canceled Normal [facility] Comment on above: Order Comment: TEST PT/INR WAS CANCELLED, 04/08/2018 04:30 ?Cancel Reason: PatientDischarged. Result Comment: Note new reference range as of 03/10/2018. Performed By: #### C BC ####[id number] [place] [address] RENAL FUNCTION PANELon 04-08 Albumin mass conc Canceled Normal [facility] Comment on above: Order Comment: TEST RENAL FUNCTION PANEL WAS CANCELLED, 04/08/2018 04:30 ?Cancel Reason:Patient Discharged. Performed By: #### C BC ####[id number] [place] [address] Anion gap 3 molar conc Canceled Normal [facility] Comment on above: Order Comment: TEST RENAL FUNCTION PANEL WAS CANCELLED, 04/08/2018 04:30 ?Cancel Reason:Patient Discharged. Performed By: #### C BC ####[id number] [place] [address] Calcium mass conc Canceled Normal [facility] Comment on above: Order Comment: TEST RENAL FUNCTION PANEL WAS CANCELLED, 04/08/2018 04:30 ?Cancel Reason:Patient Discharged. Performed By: #### C BC ####[id number] [place] [address] Chloride molar conc Canceled Normal [facility] Comment on above: Order Comment: TEST RENAL FUNCTION PANEL WAS CANCELLED, 04/08/2018 04:30 ?Cancel Reason:Patient Discharged. Performed By: #### C BC ####[id number] [place] [address] Creatinine mass conc Canceled Normal [facility] Comment on above: Order Comment: TEST RENAL FUNCTION PANEL WAS CANCELLED, 04/08/2018 04:30 ?Cancel Reason:Patient Discharged. Performed By: #### C BC ####[id number] [place] [address] GFR- AM. Canceled Normal [facility] Comment on above: Order Comment: TEST RENAL FUNCTION PANEL WAS CANCELLED, 04/08/2018 04:30 ?Cancel Reason:Patient Discharged. Result Comment: CALC ULATIONS OF ESTIMATED GFR ARE PERFORMED USING THE MDRD STUDY EQUATION FOR THE IDMS-TRACEABLE CREATININE METHODS. CLIN CHEM 2007;53:766-72 Performed By: #### C BC ####[id number] [place] [address] GFR-NON AM. Canceled Normal [facility] Comment on above: Order Comment: TEST RENAL FUNCTION PANEL WAS CANCELLED, 04/08/2018 04:30 ?Cancel Reason:Patient Discharged. Performed By: #### C BC ####[id number] [place] [address] Glucose mass conc Canceled Normal [facility] Comment on above: Order Comment: TEST RENAL FUNCTION PANEL WAS CANCELLED, 04/08/2018 04:30 ?Cancel Reason:Patient Discharged. Performed By: #### C BC ####[id number] [place] [address] HCO3 molar conc (Bld) Canceled Normal [facility] Comment on above: Order Comment: TEST RENAL FUNCTION PANEL WAS CANCELLED, 04/08/2018 04:30 ?Cancel Reason:Patient Discharged. Performed By: #### C BC ####[id number] [place] [address] Phosphate mass conc Canceled Normal [facility] Comment on above: Order Comment: TEST RENAL FUNCTION PANEL WAS CANCELLED, 04/08/2018 04:30 ?Cancel Reason:Patient Discharged. Result Comment: The performance characteristics of phosphorus testing in heparinized plasma have been validated by the individual laboratory site where testing is performed. Testing on heparinized plasma is not approved by the FDA; however, such approval is not necessary. Performed By: #### C BC ####[id number] [place] [address] Potassium molar conc Canceled Normal [facility] Comment on above: Order Comment: TEST RENAL FUNCTION PANEL WAS CANCELLED, 04/08/2018 04:30 ?Cancel Reason:Patient Discharged. Performed By: #### C BC ####[id number] [place] [address] Sodium molar conc Canceled Normal [facility] Comment on above: Order Comment: TEST RENAL FUNCTION PANEL WAS CANCELLED, 04/08/2018 04:30 ?Cancel Reason:Patient Discharged. Performed By: #### C BC ####[id number] [place] [address] Urea nitrogen mass conc Canceled Normal [facility] Comment on above: Order Comment: TEST RENAL FUNCTION PANEL WAS CANCELLED, 04/08/2018 04:30 ?Cancel Reason:Patient Discharged. Performed By: #### C BC ####[id number] [place] [address] CBCon 04-07-2018 Erythrocyte distribution width Auto Ratio (RBC) 13.1 % Normal 11.5 - 14.5 [facility] Comment on above: Performed By: #### C BC ####[id number] [place] [address] Hematocrit Auto Volume Fraction (Bld) 31.1 % Low 41.0 - 52.0 [facility] Comment on above: Performed By: #### C BC ####[id number] [place] [address] Hemoglobin mass conc (Bld) 10.3 g/dL Low 13.5 - 17.5 [facility] Comment on above: Performed By: #### C BC ####[id number] [place] [address] MCHC Auto mass conc (RBC) 33.1 g/dL Normal 32.0 - 36.0 [facility] Comment on above: Performed By: #### C BC ####[id number] [place] [address] MCV Auto Entitic volume (RBC) 93 fL Normal 80 - 100 [facility] Comment on above: Performed By: #### C BC ####[id number] [place] [address] Nucleated RBC/100 WBC Ratio (Bld) 0.0 /100 WBC Normal 0.0-0.0 [facility] Comment on above: Performed By: #### C BC ####[id number] [place] [address] Platelets Auto #/vol (Bld) 330 10*3/uL Normal 150 - 450 [facility] Comment on above: Performed By: #### C BC ####[id number] [place] [address] RBC Auto #/vol (Bld) 3.34 x10E12/L Low 4.50 - 5.90 [facility] Comment on above: Performed By: #### C BC ####[id number] [place] [address] WBC Auto #/vol (Bld) 11.8 10*3/uL High 4.4 - 11.3 [facility] Comment on above: Performed By: #### C BC ####[id number] [place] [address] Daily Progress Note-Cardiac Surgeryon 04-07-2018 Protein mass conc Service: Cardiac I[facility] Subjective Data:DON ELKINS is a 67 year old Male who is Hospital Day # 21 and POD #7 for CABGx 3;-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 Overnight Events: Patient had an uneventful night.Additional Information:No complaints today, patient eager to go home, feeling well. Objective Data: Objective Information: T CJIHZxW8Lkfxl04.17282546/6195% Date/Time04/07 11: 11: 11: 11: 11:00Range(36C - 36.5C ) (67 - 84 ) (16 - 20 ) (105 - 136 )/ (61 - 84 ) (93% -98% ) Pain with Activity reported at 04/07 11:00: 0Pain at Rest reported at 04/07 11:00: 0 Wxmamhg76/20 2:51: Weight in kg (Weight (kg)) 107. 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 Glucagon Injectable: 1 mg IntraMuscular Every 15 [...] a past medical history of HTN,HLD, T2DM, Ontario's disease, hypothyroidism, COPD, AKASH on CPAP, prostate Spring/p prostatectomy in 2011, and psoriasis [facility]18 for CABG eval. [facility] pressure and dyspnea. He as found to havebilat PEs, was started on Heparin gtt, and transferred to [facility]. He wasfound to have a troponin leak at 2.25. Cardiology was consulted and the patientwas diagnosed with ACS, NSTEMI. He underwent a TTE and cath. He had normal EF,mild AI, and triple vessel CAD so was transferred to [facility] for CABG eval.Pulm consulted for PE workup. Pt required unfractionated heparin infusion for7-10 days to take advantage of intrinsic fibrinolysis and clot stabilization,as well as an IVC filter.Endocrine consulted for evaluation of Ontario disease and treatment periop.Also managed DM. 03/23/2018 [...] lauren- daily renal panel Endo - h/o Ontario's disease, DM, hypothyroidism- Appreciate endo recs, now have signed off as of 04/04- hydrocortisone taper ordered as per Endo recs for Brigida's- starting fludrocortisone 4 days per week on 04/06 as per Endo recs forAddison's- adjusted DM regimen as per Endo recs- continue levothyroxine- DM diet, accuchecks, SSI- 04/07 nutrition educator met with patient to go over [...] discharge today, as INR is therapeutic- plan [facility] coumadin clinic under waiter/waitress bar Dr Pisano- plan home service director and PT Plan of care discussed with Dr. Gaston Signature/Cosignature/Attestat ion:Provider/Team Contact Info-Pager Numbercardiac surgery [phone] Electronic Signatures:Alexandra Milligan (PAC) (Signed 07-Apr-2018 14:05)Authored: Service, Subjective Data, Objective Data, Assessment and Plan,Signature/Cosignature/Att estation Last Updated: 07-Apr-2018 14:05 by Alexandra Milligan (PAC) Normal [facility] GLUCOSE-POCTon 04-07-2018 Glucose mass conc 123 mg/dL High 74 - 99 [facility] Comment on above: Performed By: #### C BC ####[id number] [place] [address] Glucose mass conc 232 mg/dL High 74 - 99 [facility] Comment on above: Performed By: #### C BC ####[id number] [place] [address] HEPARIN ASSAY,UFHon 04-07-20 18 HEPARIN ASSAY,UFH Canceled Normal [facility] Comment on above: Order Comment: TEST HEPARIN ASSAY,UFH WAS CANCELLED, 04/06/2018 04:14 ?Cancel Reason:Discontinued. Result Comment: The therapeutic reference range for UFH may be either 0.3-0.6 IU/mL or 0.3-0.7 IU/mL based on the clinical setting for anticoagulant therapy and the associated nomogram used. For heparin dosing guidelines based on clinical scenario and Heparin Assay results, please refer to local Pharmacy and the [facility] Guidelines for Anticoagulation therapy available on the [facility] intranet at:[email or web address]/Pharmacy/[email or web address]_Guidelines_for_Anticoagu.aspx Performed By: #### C BC ####[id number] [place] [address] Order Comment: TEST HEPARIN ASSAY,UFH WAS CANCELLED, 04/07/2018 04:44 ?Cancel Reason:Discontinued. HEPARIN ASSAY,UFH 0.6 IU/mL Normal [facility] Comment on above: Result Comment: The therapeutic reference range for UFH may be either 0.3-0.6 IU/mL or 0.3-0.7 IU/mL based on the clinical setting for anticoagulant therapy and the associated nomogram used. For heparin dosing guidelines based on clinical scenario and Heparin Assay results, please refer to local Pharmacy and the [facility] Guidelines for Anticoagulation therapy available on the [facility] intranet at:[email or web address]/[email or web address]_Guidelines_for_Anticoagu.aspx Performed By: #### C BC ####[id number] [place] [address] MAGNESIUMon 04-07-2018 Magnesium mass conc 1.85 mg/dL Normal 1.60 - 2.40 [facility] Comment on above: Performed By: #### C BC ####[id number] [place] [address] PT/INRon 04-07-2018 INR Coag RelTime (PPP) 2.0 {INR} High 0.9 - 1.1 [facility] Comment on above: Performed By: #### C BC ####[id number] [place] [address] Prothrombin time (PT) Coag time (PPP) 22.4 s High 9.7 - 12.7 [facility] Comment on above: Result Comment: Note new reference range as of 03/10/2018. Performed By: #### C BC ####[id number] [place] [address] RENAL FUNCTION PANELon 04-07 Albumin mass conc 3.3 g/dL Low 3.4 - 5.0 [facility] Comment on above: Performed By: #### C BC ####[id number] [place] [address] Anion gap 3 molar conc 11 mmol/L Normal 10 - 20 [facility] Comment on above: Performed By: #### C BC ####[id number] [place] [address] Calcium mass conc 8.9 mg/dL Normal 8.6 - 10.6 [facility] Comment on above: Performed By: #### C BC ####[id number] [place] [address] Chloride molar conc 100 mmol/L Normal 98 - 107 [facility] Comment on above: Performed By: #### C BC ####[id number] [place] [address] Creatinine mass conc 1.38 mg/dL High 0.50 - 1.30 [facility] Comment on above: Performed By: #### C BC ####[id number] [place] [address] GFR- AM. 62 mL/min/1.73m2 Normal >60 [facility] Comment on above: Result Comment: CALC ULATIONS OF ESTIMATED GFR ARE PERFORMED USING THE MDRD STUDY EQUATION FOR THE IDMS-TRACEABLE CREATININE METHODS. CLIN CHEM 2007;53:766-72 Performed By: #### C BC ####[id number] [place] [address] GFR-NON AM. 51 mL/min/1.73m2 Abnormal >60 [facility] Comment on above: Performed By: #### C BC ####[id number] [place] [address] Glucose mass conc 121 mg/dL High 74 - 99 [facility] Comment on above: Performed By: #### C BC ####[id number] [place] [address] HCO3 molar conc (Bld) 30 mmol/L Normal 21 - 32 [facility] Comment on above: Performed By: #### C BC ####[id number] [place] [address] Phosphate mass conc 4.7 mg/dL Normal 2.5 - 4.9 [facility] Comment on above: Result Comment: The performance characteristics of phosphorus testing in heparinized plasma have been validated by the individual laboratory site where testing is performed. Testing on heparinized plasma is not approved by the FDA; however, such approval is not necessary. Performed By: #### C BC ####[id number] [place] [address] Potassium molar conc 4.2 mmol/L Normal 3.5 - 5.3 [facility] Comment on above: Performed By: #### C BC ####[id number] [place] [address] Sodium molar conc 137 mmol/L Normal 136 - 145 [facility] Comment on above: Performed By: #### C BC ####[id number] [place] [address] Urea nitrogen mass conc 26 mg/dL High 6 - 23 [facility] Comment on above: Performed By: #### C BC ####[id number] [place] [address] CBCon 04-06-2018 Erythrocyte distribution width Auto Ratio (RBC) 13.0 % Normal 11.5 - 14.5 [facility] Comment on above: Performed By: #### C BC ####[id number] [place] [address] Hematocrit Auto Volume Fraction (Bld) 31.7 % Low 41.0 - 52.0 [facility] Comment on above: Performed By: #### C BC ####[id number] [place] [address] Hemoglobin mass conc (Bld) 10.6 g/dL Low 13.5 - 17.5 [facility] Comment on above: Performed By: #### C BC ####[id number] [place] [address] MCHC Auto mass conc (RBC) 33.4 g/dL Normal 32.0 - 36.0 [facility] Comment on above: Performed By: #### C BC ####[id number] [place] [address] MCV Auto Entitic volume (RBC) 92 fL Normal 80 - 100 [facility] Comment on above: Performed By: #### C BC ####[id number] [place] [address] Nucleated RBC/100 WBC Ratio (Bld) 0.0 /100 WBC Normal 0.0-0.0 [facility] Comment on above: Performed By: #### C BC ####[id number] [place] [address] Platelets Auto #/vol (Bld) 304 10*3/uL Normal 150 - 450 [facility] Comment on above: Performed By: #### C BC ####[id number] [place] [address] RBC Auto #/vol (Bld) 3.44 x10E12/L Low 4.50 - 5.90 [facility] Comment on above: Performed By: #### C BC ####[id number] [place] [address] WBC Auto #/vol (Bld) 12.3 10*3/uL High 4.4 - 11.3 [facility] Comment on above: Performed By: #### C BC ####[id number] [place] [address] COAGULATION SCREENon 04-06- 018 aPTT Coag time (Bld) 105 s Critically high 28 - 38 [facility] Comment on above: Order Comment: APTT CALLED RB TO ASHWIN JIANG 04/06/2018 05:23 Result Comment: Note new reference range as of 03/10/2018. THE APTT IS NO LONGER USED FOR MONITORING UNFRACTIONATED HEPARIN THERAPY. FOR MONITORING HEPARIN THERAPY, USE THE HEPARIN ASSAY..APTT CALLED RB TO ASHWIN JIANG , 04/06/2018 05:23 Performed By: #### C BC ####[id number] [place] [address] INR Coag RelTime (PPP) 1.5 {INR} High 0.9 - 1.1 [facility] Comment on above: Order Comment: APTT CALLED RB TO ASHWIN JIANG , 04/06/2018 05:23 Performed By: #### C BC ####[id number] [place] [address] Prothrombin time (PT) Coag time (PPP) 16.5 s High 9.7 - 12.7 [facility] Comment on above: Order Comment: APTT CALLED RB TO ASHWIN JIANG , 04/06/2018 05:23 Result Comment: Note new reference range as of 03/10/2018. Performed By: #### C BC ####[id number] [place] [address] Daily Progress Note-Cardiac Surgeryon 04-06-2018 Protein mass conc Service: Cardiac [facility] Subjective Data:DON ELKINS is a 67 year old Male who is Hospital Day # 20 and POD #6 for CABGx 3;-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 Overnight Events: Patient had an uneventful night. Objective Data: Objective Information: ---- Intake and Output -----Mn/Dy/Year TimeIntakeOutputNetNov 2017 6:00 [id number] 2017 10:00 [id number] 2017 2:00 [id number] The Intake and Output Totals for the last 24 hours are:[id number] 1 Intake Output Enteral - Oral 120 mL Urine 2725 mL Medicated IV Drips 434 mL T XRRNXuA5Vorwu44.48017143/7394% Date/Time04/06 6:5511/19 6: 6: 6: 6:55Range(35.9C - 36.6C ) (65 - 77 ) (18 - 20 ) (111 - 132 )/ (67 - 76 ) (92%- 96% ) Iglemjl77/19 3:28: Weight in kg (Weight (kg)) 16621/19 3:28: Weight in lbs ((lbs)) 238.3 Physical [...] Insulin Glargine (Lantus) Injectable: 20 unit(s) SubCutaneous NzFiznfam01. Insulin Lispro (HumaLOG) Injectable: 6 unit(s) SubCutaneous [...] Water Injectable: 25 gram(s) IntraVenous Push Every 49Jlrlukl4. Glucagon Injectable: 1 mg IntraMuscular Every 15 Minutes4. Ondansetron Injectable: 4 mg IntraVenous Push Every 6 Hours5. oxyCODONE Immediate Release: 5 mg Oral Every 4 Hours Recent Lab Results: Results:I have reviewed these laboratory results: Glucose_POCT Trending View [id number]-Lio-0459 07:00:00 05-Apr-2018 20:52:00 05-Apr-2018 17:25:00 05-Apr-2018 11:37:00 05-Apr-2018 07:13:00Glucose-IPLM706 H 289 H 222 H 193 H [...] a past medical history of HTN,HLD, T2DM, Ontario's disease, hypothyroidism, COPD, AKASH on CPAP, prostate Spring/p prostatectomy in 2011, and psoriasis [facility] on [facility]/18 for CABG eval. Ptpresented to [facility] with chest pressure and dyspnea. He as found to havebilat PEs, was started on Heparin gtt, and transferred to [facility]. He wasfound to have a troponin leak at 2.25. Cardiology was consulted and the patientwas diagnosed with ACS, NSTEMI. He underwent a TTE and cath. He had normal EF,mild AI, and triple vessel CAD so was transferred to [facility] for CABG eval.Pulm consulted for PE workup. Pt required unfractionated heparin infusion for7-10 days to take advantage of intrinsic fibrinolysis and clot stabilization,as well as an IVC filter.Endocrine consulted for evaluation of Ontario disease and treatment periop.Also managed DM. 03/23/2018 OPERATION/PROCEDURE: by Severiano StapletonInferior vena cava filter. 03/31/18 OPERATION/PROCEDURE: by Dr. [...] lauren- daily renal panel Endo - h/o Ontario's disease, DM, hypothyroidism- Appreciate endo recs, now have signed off as of 04/04- hydrocortisone taper ordered as per Endo recs for Ontario's- starting fludrocortisone 4 days per week on [...] PT- anticipate discharge when INR therapeutic- plan [facility] coumadin clinic under waiter/waitress bar Dr Pisano- plan home service director and PT- continue to assess discharge needs Signature/Cosignature/Attestat ion:Provider/Team Contact Info-Pager Numbercardiac surgery [phone] Electronic Signatures:Mary Munroe (LOCKSTITCH BINDER-BUTTERMILK DRIER OPERATOR) (Signed 06-Apr-2018 18:26)Authored: Service, Subjective Data, Objective Data, Assessment and Plan,Signature/Cosignature/Att estation Last Updated: 06-Apr-2018 18:26 by Mary Munroe (LOCKSTITCH BINDER-BUTTERMILK DRIER OPERATOR) Normal [facility] GLUCOSE-POCTon 04-06-2018 Glucose mass conc 303 mg/dL High 74 - 99 [facility] Comment on above: Performed By: #### C BC ####[id number] [place] [address] Glucose mass conc 290 mg/dL High 74 - 99 [facility] Comment on above: Performed By: #### C BC ####[id number] [place] [address] Glucose mass conc 268 mg/dL High 74 - 99 [facility] Comment on above: Performed By: #### C BC ####[id number] [place] [address] Glucose mass conc 118 mg/dL High 74 - 99 [facility] Comment on above: Performed By: #### C BC ####[id number] [place] [address] HEPARIN ASSAY,UFHon 04-06-20 18 HEPARIN ASSAY,UFH 0.5 IU/mL Normal [facility] Comment on above: Result Comment: The therapeutic reference range for UFH may be either 0.3-0.6 IU/mL or 0.3-0.7 IU/mL based on the clinical setting for anticoagulant therapy and the associated nomogram used. For heparin dosing guidelines based on clinical scenario and Heparin Assay results, please refer to local Pharmacy and [facility] Guidelines for Anticoagulation therapy available on the [facility] intranet at:[email or web address]/Pharmacy/Pages/[facility]_Guidelines_for_Anticoagu.aspx Performed By: #### C BC ####[id number] [place] [address] HEPARIN ASSAY,UFH 0.7 IU/mL Normal [facility] Comment on above: Result Comment: The therapeutic reference range for UFH may be either 0.3-0.6 IU/mL or 0.3-0.7 IU/mL based on the clinical setting for anticoagulant therapy and the associated nomogram used. For heparin dosing guidelines based on clinical scenario and Heparin Assay results, please refer to local Pharmacy and [facility] Guidelines for Anticoagulation therapy available on the [facility] intranet at:[email or web address]/[email or web address]_Guidelines_for_Anticoagu.aspx Performed By: #### C BC ####[id number], [place] [address] HEPARIN ASSAY,UFH Canceled Normal [facility] Comment on above: Order Comment: TEST HEPARIN [...] please refer to local Pharmacy and the [facility] Guidelines for Anticoagulation therapy available on the [facility] intranet at:[email or web address]/Pharmacy/Pages/[facility]_Guidelines_for_Anticoagu.aspx Performed By: #### C BC ####[id number] [id number] HEPARIN ASSAY,UFH Canceled Normal [facility] Comment on above: Order Comment: TEST HEPARIN ASSAY,UFH WAS CANCELLED, 04/06/2018 09:52 NO SPECIMEN RECEIVEDIN LAB. Result Comment: The therapeutic reference range for UFH may be either 0.3-0.6 IU/mL or 0.3-0.7 IU/mL based on the clinical setting for anticoagulant therapy and the associated nomogram used. For heparin dosing guidelines based on clinical scenario and Heparin Assay results, please refer to local Pharmacy and [facility] Guidelines for Anticoagulation therapy available on the [facility] intranet at:[email or web address]/Pharmacy/Pages/[facility]_Guidelines_for_Anticoagu.aspx Performed By: #### C BC ####[id number] [place] [address] HEPARIN ASSAY,UFH 0.8 IU/mL Normal [facility] Comment on above: Result Comment: The therapeutic reference range for UFH may be either 0.3-0.6 IU/mL or 0.3-0.7 IU/mL based on the clinical setting for anticoagulant therapy and the associated nomogram used. For heparin dosing guidelines based on clinical scenario and Heparin Assay results, please refer to local Pharmacy and the [facility] Guidelines for Anticoagulation therapy available on the [facility] intranet at:[email or web address]/Pharmacy/Pages/[facility]_Guidelines_for_Anticoagu.aspx Performed By: #### C BC ####[id number] [place] [address] MAGNESIUMon 04-06-2018 Magnesium mass conc 2.03 mg/dL Normal 1.60 - 2.40 [facility] Comment on above: Performed By: #### C BC ####[id number] [place] [address] Nutrition Therapy-Noteon Nutrition Therapy-Note Assessment Subjective/Objective:Note Type: Note Note Authored by: Registered Dietitian NutritionistPager Number: [phone] Nutrition Note:The patient is a 67 year [...] Last Updated: 06-Apr-2018 11:27 by Claribel Damon (DIONY, JASMEET) Normal [facility] PT/INRon 04-06-2018 INR Coag RelTime (PPP) Canceled Normal [facility] Comment on above: Order Comment: TEST PT/INR WAS CANCELLED, 04/06/2018 09:51 NO SPECIMEN RECEIVED IN LAB. Performed By: #### C BC ####[id number] [place] [address] Prothrombin time (PT) Coag time (PPP) Canceled Normal [facility] Comment on above: Order Comment: TEST PT/INR WAS CANCELLED, 04/06/2018 09:51 NO SPECIMEN RECEIVED IN LAB. Result Comment: Note new reference range as of 03/10/2018. Performed By: #### C BC ####[id number] [place] [address] RENAL FUNCTION PANELon 04-06 Albumin mass conc 3.7 g/dL Normal 3.4 - 5.0 [facility] Comment on above: Performed By: #### C BC ####[id number] [place] [address] Anion gap 3 molar conc 13 mmol/L Normal 10 - 20 [facility] Comment on above: Performed By: #### C BC ####[id number] [place] [address] Calcium mass conc 9.0 mg/dL Normal 8.6 - 10.6 [facility] Comment on above: Performed By: #### C BC ####[id number] [place] [address] Chloride molar conc 98 mmol/L Normal 98 - 107 [facility] Comment on above: Performed By: #### C BC ####[id number] [place] [address] Creatinine mass conc 1.28 mg/dL Normal 0.50 - 1.30 [facility] Comment on above: Performed By: #### C BC ####[id number] [place] [address] GFR- AM. 68 mL/min/1.73m2 Normal >60 [facility] Comment on above: Result Comment: CALC ULATIONS OF ESTIMATED GFR ARE PERFORMED USING THE MDRD STUDY EQUATION FOR THE IDMS-TRACEABLE CREATININE METHODS. CLIN CHEM 2007;53:766-72 Performed By: #### C BC ####[id number] [place] [address] GFR-NON AM. 56 mL/min/1.73m2 Abnormal >60 [facility] Comment on above: Performed By: #### C BC ####[id number] [place] [address] Glucose mass conc 105 mg/dL High 74 - 99 [facility] Comment on above: Performed By: #### C BC ####[id number] [place] [address] HCO3 molar conc (Bld) 29 mmol/L Normal 21 - 32 [facility] Comment on above: Performed By: #### C BC ####[id number] [place] [address] Phosphate mass conc 3.8 mg/dL Normal 2.5 - 4.9 [facility] Comment on above: Result Comment: The performance characteristics of phosphorus testing in heparinized plasma have been validated by the individual laboratory site where testing is performed. Testing on heparinized plasma is not approved by the FDA; however, such approval is not necessary. Performed By: #### C BC ####[id number] [place] [address] Potassium molar conc 4.1 mmol/L Normal 3.5 - 5.3 [facility] Comment on above: Performed By: #### C BC ####[id number] [place] [address] Sodium molar conc 136 mmol/L Normal 136 - 145 [facility] Comment on above: Performed By: #### C BC ####[id number] [place] [address] Urea nitrogen mass conc 23 mg/dL Normal 6 - 23 [facility] Comment on above: Performed By: #### C BC ####[id number] [place] [address] CBCon 04-05-2018 Erythrocyte distribution width Auto Ratio (RBC) 12.7 % Normal 11.5 - 14.5 [facility] Comment on above: Performed By: #### C BC ####[id number] [place] [address] Hematocrit Auto Volume Fraction (Bld) 29.5 % Low 41.0 - 52.0 [facility] Comment on above: Performed By: #### C BC ####[id number] [place] [address] Hemoglobin mass conc (Bld) 9.8 g/dL Low 13.5 - 17.5 [facility] Comment on above: Performed By: #### C BC ####[id number] [place] [address] MCHC Auto mass conc (RBC) 33.2 g/dL Normal 32.0 - 36.0 [facility] Comment on above: Performed By: #### C BC ####[id number] [place] [address] MCV Auto Entitic volume (RBC) 91 fL Normal 80 - 100 [facility] Comment on above: Performed By: #### C BC ####[id number] [place] [address] Nucleated RBC/100 WBC Ratio (Bld) 0.0 /100 WBC Normal 0.0-0.0 [facility] Comment on above: Performed By: #### C BC ####[id number] [place] [address] Platelets Auto #/vol (Bld) 249 10*3/uL Normal 150 - 450 [facility] Comment on above: Performed By: #### C BC ####[id number] [place] [address] RBC Auto #/vol (Bld) 3.23 x10E12/L Low 4.50 - 5.90 [facility] Comment on above: Performed By: #### C BC ####[id number] [place] [address] WBC Auto #/vol (Bld) 10.2 10*3/uL Normal 4.4 - 11.3 [facility] Comment on above: Performed By: #### C BC ####[id number] [place] [address] COAGULATION SCREENon -18-2 018 aPTT Coag time (Bld) 93 s High 28 - 38 [facility] Comment on above: Result Comment: Note new reference range as of 03/10/2018. THE APTT IS NO LONGER USED FOR MONITORING UNFRACTIONATED HEPARIN THERAPY. FOR MONITORING HEPARIN THERAPY, USE THE HEPARIN ASSAY. Performed By: #### C BC ####[id number] [place] [address] INR Coag RelTime (PPP) 1.4 {INR} High 0.9 - 1.1 [facility] Comment on above: Performed By: #### C BC ####[id number] [place] [address] Prothrombin time (PT) Coag time (PPP) 15.1 s High 9.7 - 12.7 [facility] Comment on above: Result Comment: Note new reference range as of 03/10/2018. Performed By: #### C ####[id number] [place] [address] Clinical Event Note-CUT epic ardial wireson 04-05-2018 Clinical Event Note-CUT epicardial wires Event:Topic: CUT epicardial wiresDetails:11:05 Atrial and ventricular wires cut at skin level. Patient instructed tonotify radiology of retained epicardial wires prior to any MRI procedure, andto notify Dr. Gaston's of any visible wires or s/s infection. Provider / Team Contact Information:Provider/Team Contact Info-Pager Number: cardiac surgery [phone] Electronic Signatures:Alexandra Milligan (PAC) (Signed 05-Apr-2018 11:17)Authored: Event, Provider / Team Contact Information Last Updated: 05-Apr-2018 11:17 by Alexandra Milligan (PAC) Normal [facility] Daily Progress Note-Cardiac Surgeryon 04-05-2018 Protein mass [...] complaints overnight Objective Data: Objective Information: T [id number]/6996% Date/Time04/05 10: 10: 10: 10: 10:56Range(36.3C - 37.5C ) (63 - 75 ) (18 - 20 ) (109 - 131 )/ (64 - 75 ) (93%- 96% )Highest temp of 37.5 C was recorded at 04/04 22:38 Pain with Activity reported at 04/05 8:20: 0Pain at Rest reported at 04/05 8:20: 0 Fwcqxlx65/18 2:00: Weight in kg (Weight (kg)) 109.811 2:00: Weight in lbs ((lbs)) 242.1 ---- Intake and Output -----Mn/Dy/Year TimeIntakeOutputNetNov 2017 6:00 [id number] 2017 10:00 [id number] 2017 2:00 [id number] The Intake and Output Totals for the last 24 hours are:[id number] Physical Exam: Constitutional: lying in bed; NAD, [...] Water Injectable: 25 gram(s) IntraVenous Push Every 81Knkoqme2. Glucagon Injectable: 1 mg IntraMuscular Every 15 [...] [facility] for CABG eval. Ptpresented to [facility] with [facility] pressure and dyspnea. He as found to havebilat PEs, was started on Heparin gtt, and transferred to [facility]. He wasfound to have a troponin leak at 2.25. Cardiology was consulted and the patientwas diagnosed with ACS, NSTEMI. He underwent a TTE and cath. He had normal EF,mild AI, and triple vessel CAD so was transferred to [facility] for CABG eval.Pulm consulted for PE workup. Pt required unfractionated heparin infusion for7-10 days to take advantage of intrinsic fibrinolysis and clot stabilization,as well as an IVC filter.Endocrine consulted for evaluation of [place] disease and treatment periop.Also managed DM. 03/23/2018 OPERATION/PROCEDURE: by Severiano StapletonInferior vena cava filter. 03/31/18 OPERATION/PROCEDURE: by Dr. [...] replaced K and Mg Endo - h/o [place]'s disease, DM, hypothyroidism- Appreciate endo recs, now [...] 2-3 days depending on INR- plan home service director and PT- continue to assess discharge needs Plan of care discussed with Dr. Gaston Signature/Cosignature/Attestat ion:Provider/Team Contact Info-Pager Numbercardiac surgery [phone] Electronic Signatures:Alexandra Milligan (PAC) (Signed 05-Apr-2018 15:48)Authored: Service, Subjective Data, Objective Data, Assessment and Plan,Signature/Cosignature/Att estation Last Updated: 05-Apr-2018 15:48 by Alexandra Milligan (PAC) Normal [facility] GLUCOSE-POCTon 04-05-2018 Glucose mass conc 289 mg/dL High 74 - 99 [facility] Comment on above: Performed By: #### C BC ####[id number] [place] [address] Glucose mass conc 222 mg/dL High 74 - 99 [facility] Comment on above: Performed By: #### C BC ####[id number] [place] [address] Glucose mass conc 193 mg/dL High 74 - 99 [facility] Comment on above: Performed By: #### C BC ####[id number] [place] [address] Glucose mass conc 129 mg/dL High 74 - 99 [facility] Comment on above: Performed By: #### C BC ####[id number] [place] [address] HEPARIN ASSAY,UFHon 04-05-20 18 HEPARIN ASSAY,UFH 0.7 IU/mL Normal [facility] Comment on above: Result Comment: The therapeutic reference range for UFH may be either 0.3-0.6 IU/mL or 0.3-0.7 IU/mL based on the clinical setting for anticoagulant therapy and the associated nomogram used. For heparin dosing guidelines based on clinical scenario and Heparin Assay results, please refer to local Pharmacy and the [facility] Guidelines for Anticoagulation therapy available on the [facility] intranet at:[email or web address]/Pharmacy/Pages/[place]_Guidelines_for_Anticoagu.aspx Performed By: #### C BC ####[id number] [place] [address] MAGNESIUMon 04-05-2018 Magnesium mass conc 1.75 mg/dL Normal 1.60 - 2.40 [facility] Comment on above: Performed By: #### C BC ####[id number] [place] [address] RENAL FUNCTION PANELon 04-05 Albumin mass conc 3.3 g/dL Low 3.4 - 5.0 [facility] Comment on above: Performed By: #### C BC ####[id number] [place] [address] Anion gap 3 molar conc 14 mmol/L Normal 10 - 20 [facility] Comment on above: Performed By: #### C BC ####[id number] [place] [address] Calcium mass conc 8.5 mg/dL Low 8.6 - 10.6 [facility] Comment on above: Performed By: #### C BC ####[id number] [place] [address] Chloride molar conc 96 mmol/L Low 98 - 107 [facility] Comment on above: Performed By: #### C BC ####[id number] [place] [address] Creatinine mass conc 1.37 mg/dL High 0.50 - 1.30 [facility] Comment on above: Performed By: #### C BC ####[id number] [place] [address] GFR- AM. 63 mL/min/1.73m2 Normal >60 [facility] Comment on above: Result Comment: CALC ULATIONS OF ESTIMATED GFR ARE PERFORMED USING THE MDRD STUDY EQUATION FOR THE IDMS-TRACEABLE CREATININE METHODS. CLIN CHEM 2007;53:766-72 Performed By: #### C BC ####[id number] [place] [address] GFR-NON AM. 52 mL/min/1.73m2 Abnormal >60 [facility] Comment on above: Performed By: #### C BC ####[id number] [place] [address] Glucose mass conc 200 mg/dL High 74 - 99 [facility] Comment on above: Performed By: #### C BC ####[id number] [place] [address] HCO3 molar conc (Bld) 26 mmol/L Normal 21 - 32 [facility] Comment on above: Performed By: #### C BC ####[id number] [place] [address] Phosphate mass conc 2.9 mg/dL Normal 2.5 - 4.9 [facility] Comment on above: Result Comment: The performance characteristics of phosphorus testing in heparinized plasma have been validated by the individual laboratory site where testing is performed. Testing on heparinized plasma is not approved by the FDA; however, such approval is not necessary. Performed By: #### C BC ####[id number] [place] [address] Potassium molar conc 3.3 mmol/L Low 3.5 - 5.3 [facility] Comment on above: Performed By: #### C BC ####[id number] [place] [address] Sodium molar conc 133 mmol/L Low 136 - 145 [facility] Comment on above: Performed By: #### C BC ####[id number] [place] [address] Urea nitrogen mass conc 23 mg/dL Normal 6 - 23 [facility] Comment on above: Performed By: #### C BC ####[id number] [place] [address] CBCon 04-04-2018 Erythrocyte distribution width Auto Ratio (RBC) Canceled Normal [facility] Comment on above: Order Comment: TEST CBC WAS CANCELLED, 04/04/2018 18:30 ?Cancel Reason: Cancelled. Performed By: #### C BC ####[id number] [place] [address] Hematocrit Auto Volume Fraction (Bld) Canceled Normal [facility] Comment on above: Order Comment: TEST CBC WAS CANCELLED, 04/04/2018 18:30 ?Cancel Reason: Cancelled. Performed By: #### C BC ####[id number] [place] [address] Hemoglobin mass conc (Bld) Canceled Normal [facility] Comment on above: Order Comment: TEST CBC WAS CANCELLED, 04/04/2018 18:30 ?Cancel Reason: Cancelled. Performed By: #### C BC ####[id number] [place] [address] MCHC Auto mass conc (RBC) Canceled Normal [facility] Comment on above: Order Comment: TEST CBC WAS CANCELLED, 04/04/2018 18:30 ?Cancel Reason: Cancelled. Performed By: #### C BC ####[id number] [place] [address] MCV Auto Entitic volume (RBC) Canceled Normal [facility] Comment on above: Order Comment: TEST CBC WAS CANCELLED, 04/04/2018 18:30 ?Cancel Reason: Cancelled. Performed By: #### C BC ####[id number] [place] [address] Nucleated RBC/100 WBC Ratio (Bld) Canceled Normal [facility] Comment on above: Order Comment: TEST CBC WAS CANCELLED, 04/04/2018 18:30 ?Cancel Reason: Cancelled. Performed By: #### C BC ####[id number] [place] [address] Platelets Auto #/vol (Bld) Canceled Normal [facility] Comment on above: Order Comment: TEST CBC WAS CANCELLED, 04/04/2018 18:30 ?Cancel Reason: Cancelled. Performed By: #### C BC ####[id number] [place] [address] RBC Auto #/vol (Bld) Canceled Normal [facility] Comment on above: Order Comment: TEST CBC WAS CANCELLED, 04/04/2018 18:30 ?Cancel Reason: Cancelled. Performed By: #### C BC ####[id number] [place] [address] WBC Auto #/vol (Bld) Canceled Normal [facility] Comment on above: Order Comment: TEST CBC WAS CANCELLED, 04/04/2018 18:30 ?Cancel Reason: Cancelled. Performed By: #### C BC ####[id number] [place] [address] Erythrocyte distribution width Auto Ratio (RBC) Canceled Normal [facility] Comment on above: Order Comment: TEST CBC WAS CANCELLED, 04/04/2018 03:39 No specimen received. Performed By: #### C BC ####[id number] [place] [address] Hematocrit Auto Volume Fraction (Bld) Canceled Normal [facility] Comment on above: Order Comment: TEST CBC WAS CANCELLED, 04/04/2018 03:39 No specimen received. Performed By: #### C BC ####[id number] [place] [address] Hemoglobin mass conc (Bld) Canceled Normal [facility] Comment on above: Order Comment: TEST CBC WAS CANCELLED, 04/04/2018 03:39 No specimen received. Performed By: #### C BC ####[id number] [place] [address] MCHC Auto mass conc (RBC) Canceled Normal [facility] Comment on above: Order Comment: TEST CBC WAS CANCELLED, 04/04/2018 03:39 No specimen received. Performed By: #### C BC ####[id number] [place] [address] MCV Auto Entitic volume (RBC) Canceled Normal [facility] Comment on above: Order Comment: TEST CBC WAS CANCELLED, 04/04/2018 03:39 No specimen received. Performed By: #### C BC ####[id number] [place] [address] Nucleated RBC/100 WBC Ratio (Bld) Canceled Normal [facility] Comment on above: Order Comment: TEST CBC WAS CANCELLED, 04/04/2018 03:39 No specimen received. Performed By: #### C BC ####[id number] [place] [address] Platelets Auto #/vol (Bld) Canceled Normal [facility] Comment on above: Order Comment: TEST CBC WAS CANCELLED, 04/04/2018 03:39 No specimen received. Performed By: #### C BC ####[id number] [place] [address] RBC Auto #/vol (Bld) Canceled Normal [facility] Comment on above: Order Comment: TEST CBC WAS CANCELLED, 04/04/2018 03:39 No specimen received. Performed By: #### C BC ####[id number] [place] [address] WBC Auto #/vol (Bld) Canceled Normal [facility] Comment on above: Order Comment: TEST CBC WAS CANCELLED, 04/04/2018 03:39 No specimen received. Performed By: #### C BC ####[id number] [place] [address] Erythrocyte distribution width Auto Ratio (RBC) 12.4 % Normal 11.5 - 14.5 [facility] Comment on above: Performed By: #### E MRAD ####NO LOCATION NEEDED Hematocrit Auto Volume Fraction (Bld) 26.8 % Low 41.0 - 52.0 [facility] Comment on above: Performed By: #### E MRAD ####NO LOCATION NEEDED Hemoglobin mass conc (Bld) 9.0 g/dL Low 13.5 - 17.5 [facility] Comment on above: Performed By: #### E MRAD ####NO LOCATION NEEDED MCHC Auto mass conc (RBC) 33.6 g/dL Normal 32.0 - 36.0 [facility] Comment on above: Performed By: #### E MRAD ####NO LOCATION NEEDED MCV Auto Entitic volume (RBC) 93 fL Normal 80 - 100 [facility] Comment on above: Performed By: #### E MRAD ####NO LOCATION NEEDED Nucleated RBC/100 WBC Ratio (Bld) 0.0 /100 WBC Normal 0.0-0.0 [facility] Comment on above: Performed By: #### E MRAD ####NO LOCATION NEEDED Platelets Auto #/vol (Bld) 168 10*3/uL Normal 150 - 450 [facility] Comment on above: Performed By: #### E MRAD ####NO LOCATION NEEDED RBC Auto #/vol (Bld) 2.89 x10E12/L Low 4.50 - 5.90 [facility] Comment on above: Performed By: #### E MRAD ####NO LOCATION NEEDED WBC Auto #/vol (Bld) 9.9 10*3/uL Normal 4.4 - 11.3 [facility] Comment on above: Performed By: #### E MRAD ####NO LOCATION NEEDED CBC AND DIFFERENTIALon 04-04 % AUTOMATED IMMATURE GRAN 0.9 % Normal 0.0 - 0.9 [facility] Comment on above: Result Comment: Perc ent differential counts (%) should be interpreted in the context of the absolute cell counts (cells/L). Performed By: #### C BC ####[id number] [place] [address] % NEUTROPHIL 62.2 % Normal 40.0 - 80.0 [facility] Comment on above: Performed By: #### C BC ####[id number] [place] [address] Basophils/100 WBC Auto (Bld) 0.8 % Normal 0.0 - 2.0 [facility] Comment on above: Performed By: #### C BC ####[id number] [place] [address] Basophils/100 WBC Auto (Bld) 0.07 x10E9/L Normal 0.00 - 0.10 [facility] Comment on above: Performed By: #### C BC ####[id number] [place] [address] Eosinophils Auto #/vol (Bld) 0.56 10*3/uL Normal 0.00 - 0.70 [facility] Comment on above: Performed By: #### C BC ####[id number] [place] [address] Eosinophils/100 WBC Auto (Bld) 6.0 % Normal 0.0 - 6.0 [facility] Comment on above: Performed By: #### C BC ####[id number] [place] [address] Erythrocyte distribution width Auto Ratio (RBC) 12.6 % Normal 11.5 - 14.5 [facility] Comment on above: Performed By: #### C BC ####[id number] [place] [address] Hematocrit Auto Volume Fraction (Bld) 26.6 % Low 41.0 - 52.0 [facility] Comment on above: Performed By: #### C BC ####[id number] [place] [address] Hemoglobin mass conc (Bld) 9.0 g/dL Low 13.5 - 17.5 [facility] Comment on above: Performed By: #### C BC ####[id number] [place] [address] Lymphocytes Auto #/vol (Bld) 1.96 10*3/uL Normal 1.20 - 4.80 [facility] Comment on above: Performed By: #### C BC ####[id number] [place] [address] Lymphocytes/100 WBC Auto (Bld) 21.0 % Normal 13.0 - 44.0 [facility] Comment on above: Performed By: #### C BC ####[id number] [place] [address] MCHC Auto mass conc (RBC) 33.8 g/dL Normal 32.0 - 36.0 [facility] Comment on above: Performed By: #### C BC ####[id number] [place] [address] MCV Auto Entitic volume (RBC) 91 fL Normal 80 - 100 [facility] Comment on above: Performed By: #### C BC ####[id number] [place] [address] Monocytes Auto #/vol (Bld) 0.85 10*3/uL Normal 0.10 - 1.00 [facility] Comment on above: Performed By: #### C BC ####[id number] [place] [address] Monocytes/100 WBC Auto (Bld) 9.1 % Normal 2.0 - 10.0 [facility] Comment on above: Performed By: #### C BC ####[id number] [place] [address] Neutrophils Auto #/vol (Bld) 5.81 10*3/uL Normal 1.20 - 7.70 [facility] Comment on above: Performed By: #### C BC ####[id number] [place] [address] Nucleated RBC/100 WBC Ratio (Bld) 0.0 /100 WBC Normal 0.0-0.0 [facility] Comment on above: Performed By: #### C BC ####[id number] [place] [address] Platelets Auto #/vol (Bld) 173 10*3/uL Normal 150 - 450 [facility] Comment on above: Performed By: #### C BC ####[id number] [place] [address] RBC Auto #/vol (Bld) 2.93 x10E12/L Low 4.50 - 5.90 [facility] Comment on above: Performed By: #### C BC ####[id number] [place] [address] WBC Auto #/vol (Bld) 9.3 10*3/uL Normal 4.4 - 11.3 [facility] Comment on above: Performed By: #### C BC ####[id number] [place] [address] COAGULATION SCREENon 018 aPTT Coag time (Bld) 79 s High 28 - 38 [facility] Comment on above: Result Comment: Note new reference range as of 03/10/2018. THE APTT IS NO LONGER USED FOR MONITORING UNFRACTIONATED HEPARIN THERAPY. FOR MONITORING HEPARIN THERAPY, USE THE HEPARIN ASSAY. Performed By: #### C BC ####[id number] [place] [address] INR Coag RelTime (PPP) 1.4 {INR} High 0.9 - 1.1 [facility] Comment on above: Performed By: #### C BC ####[id number] [place] [address] Prothrombin time (PT) Coag time (PPP) 15.3 s High 9.7 - 12.7 [facility] Comment on above: Result Comment: Note new reference range as of 03/10/2018. Performed By: #### C BC ####[id number] [place] [address] Daily Progress Note-Cardiac Surgeryon 04-04-2018 Protein mass conc Service: Cardiac [facility] Subjective Data:DON ELKINS is a 67 year [...] complaints overnight Objective Data: Objective Information: T SASPNyQ0Ulzjt61.02007625/7595% Date/Time04/04 14: 14: 14: 14: 14:42Range(36C - 36.8C ) (67 - 75 ) (16 - 20 ) (117 - 128 )/ (69 - 76 ) (93% -97% ) As of 04-Apr-2018 04:41:00, patient is on 2 L/min of oxygen via nasal cannula. Pain with Activity reported at 04/04 8:15: 0Pain at Rest reported at 04/04 8:15: 0 Hsyhyxj33/17 4:41: Weight in kg (Weight (kg)) 109.9106/04 4:41: Weight in lbs ((lbs)) 242.5 ---- Intake and Output -----Mn/Dy/Year TimeIntakeOutputNetNov 2017 2:00 [id number] 2017 6:00 [id number] 2017 10:00 [id number] The Intake and Output Totals for the last 24 hours are:[id number] Physical Exam: Constitutional: lying in bed; NAD, [...] Water Injectable: 25 gram(s) IntraVenous Push Every 15Ugifvlg7. Glucagon Injectable: 1 mg IntraMuscular Every 15 Minutes4. Ondansetron Injectable: 4 mg IntraVenous Push Every 6 Hours5. oxyCODONE Immediate Release: 5 mg Oral Every 4 Hours6. oxyCODONE Immediate Release: 10 mg Oral Every 4 Hours Recent Lab Results: Results: I have reviewed these laboratory results: Glucose_POCT Trending View [id number]-Sdx-[id number] 15:59:00 04-Apr-2018 12:39:00 04-Apr-2018 07:30:00Glucose-YHOE702 H 248 H 207 H Coagulation Screen [...] a past medical history of HTN,HLD, T2DM, Ontario's disease, hypothyroidism, COPD, AKASH on CPAP, prostate Spring/p prostatectomy in 2011, and psoriasis who was transferred to [facility], INCI service [facility] from [facility] on 03/18 for CABG eval. Ptpresented to [facility] with chest pressure and dyspnea. He as found to havebilat PEs, was started on Heparin gtt, and transferred to [facility]. He wasfound to have a troponin leak at 2.25. Cardiology was consulted and the patientwas diagnosed with ACS, NSTEMI. He underwent a TTE and cath. He had normal EF,mild AI, and triple vessel CAD so was transferred to [facility] for CABG eval.Pulm consulted for PE workup. Pt required unfractionated heparin infusion for7-10 days to take advantage of intrinsic fibrinolysis and clot stabilization,as well as an IVC filter.Endocrine consulted for evaluation of Ontario disease and treatment periop.Also managed DM. 03/23/2018 OPERATION/PROCEDURE: by Severiano RodriguezapInferior vena cava filter. 03/31/18 OPERATION/PROCEDURE: by Dr. Hernandez x 3; REIS to LAD, SVG to PDA, SVG to DiagEndoscopic harvest of right saphenous vein CTICU course: HTN, endo following for DM and Ontario's disease, insulin gtt;one CT with air leak [...] 04/04 changed to 75 mg PO BID vaqnmihp34/18 Acute postop blood loss anemia- hct 26.6, [...] replaced K and Mg Endo - h/o Ontario's disease, DM, hypothyroidism- Appreciate endo recs, now have signed off as of 04/04- hydrocortisone taper ordered as per Endo recs for Ontario's- starting fludrocortisone 4 days per week on [...] early the week of 04/06- plan home service director and PT- continue to assess discharge needs Signature/Cosignature/Attestat ion:Provider/Team Contact Info-Pager Numbercardiac surgery [phone] Electronic Signatures:Alexandra Milligan (PAC) (Signed 04-Apr-2018 17:36)Authored: Service, Subjective Data, Objective Data, Assessment and Plan,Signature/Cosignature/Att estation Last Updated: 04-Apr-2018 17:36 by Alexandra Milligan (PAC) Normal [facility] Daily Progress Note-Endocrin ologyon 04-04-2018 Protein mass [...] Intake and Output -----Mn/Dy/Year TimeIntakeOutputNetNov 2017 6:00 [id number] 2017 10:00 [id number] 2017 2:00 [id number] The Intake and Output Totals for the last 24 hours are:JhcktiPhdprwCtw004228-929B RRRRAbF8Uzcsw84.54859833/7693% Date/Time04/04 7: 7: 7: 7: 7:24Range(36.1C - [...] reviewed these laboratory results: Glucose_POCT Trending View Kwzmbb85-Rum-9939 07:30:00 03-Apr-2018 22:08:00 03-Apr-2018 18:12:00 03-Apr-2018 11:22:00Glucose-VXWK575 H 192 H 294 H 151 H Complete Blood Count + Differential 04-Apr-2018 02:57:00 ResultValueWhite Blood Cell Count 9.3Nucleated Erythrocyte Count 0.0Red Blood Cell Count 2.93 LHGB 9.0 LHCT 26.6 LMCV 91MCHC 33.8PLT 173RDW-CV 12.6Neutrophil % 62.2Immature Granulocytes % 0.9Lymphocyte % 21.0Monocyte % 9.1Eosinophil % 6.0Basophil % 0.8Neutrophil Count 5.81Lymphocyte Count 1.96Monocyte Count 0.85Eosinophil Count 0.56Basophil Count 0.07 Renal Function Panel Trending View Sfbckg77-Vwb-0949 02:57:00 03-Apr-2018 21:03:00Glucose, Tfgnd980 H 198 TDM765 L 132 LK3.8 4.3CL97 L 97 LBicarbonate, Serum27 26Anion Gap, Serum13 38IHA18 H 27 HCREAT1.24 1.30GFR-Non Ymajxanv44 A 55 AGFR- Lqamkqca59 67Calcium, Serum8.3 L 8.3 LPhosphorus, Serum2.9 2.7ALB3.2 [...] a past medicalhistory of HTN, HLD, T2DM, Ontario's disease, hypothyroidism, COPD, AKASH onCPAP, prostate ca s/p prostatectomy in 2011, and psoriasis who [facility], INCI service at [facility] from [facility] on 03/18 forWALTER marshall.Endocrine consulted fr evaluation of Brigida disease and treatment periop Patient was on supra-therapeutic dose of HCT 20-0-20 , fludrocortisone 0.1 ,mgdailyPatient has uncontrolled HTN and uncontrolled BSIVC filter placed on abg 03/31 1. Ontario's Disease- HC taper as below04/04- make HCt PO 20 mg @ 8 am - 10 mg @ noon - 10 mg @ 5 pm04/06- make HCt PO 15 mg @ 8 am - 10 mg @ noon - 5 mg @ 5pm1/21-until follow up; make HCt PO 10 mg @ 8 am - 5 mg @ noon - 2.5 mg @ 5pm -please resume Fludrocortisone 0.05 mg 4 times weekly ( and Friday) on 04/06 2. G6OD-dlpaadvz Glargine 20 units QHS and Lispro 6 [...] patient (as noted in the above attestation) [id number] Electronic Signatures:Shanda Rose (Fellow)) (Signed 04-Apr-2018 13:07)Authored: Service, Subjective Data, Objective Data, Assessment and Plan,Signature/Cosignature/Att estationIsmail-Leighton Leyva) (Signed 06-Apr-2018 12:54)Authored: Signature/Cosignature/Attestat ionCo-Signer: Service, Subjective Data, Objective Data Last Updated: 06-Apr-2018 12:[address]) Normal [facility] GLUCOSE-POCTon 04-04-2018 Glucose mass conc 204 mg/dL High 74 - 99 [facility] Comment on above: Performed By: #### C BC ####[id number] [place] [address] Glucose mass conc 248 mg/dL High 74 - 99 [facility] Comment on above: Performed By: #### C BC ####[id number] [place] [address] Glucose mass conc 207 mg/dL High 74 - 99 [facility] Comment on above: Performed By: #### C BC ####[id number] [place] [address] Glucose mass conc 192 mg/dL High 74 - 99 [facility] Comment on above: Performed By: #### E MRAD ####NO LOCATION NEEDED HEPARIN ASSAY,UFHon 04-04-20 18 HEPARIN ASSAY,UFH 0.5 IU/mL Normal [facility] Comment on above: Result Comment: The therapeutic reference range for UFH may be either 0.3-0.6 IU/mL or 0.3-0.7 IU/mL based on the clinical setting for anticoagulant therapy and the associated nomogram used. For heparin dosing guidelines based on clinical scenario and Heparin Assay results, please refer to local Pharmacy and [facility] Guidelines for Anticoagulation therapy available on the [facility] intranet at:[email or web address]_Guidelines_[email or web address]_[email or web address].aspx Performed By: #### C BC ####[id number] [place] [address] HEPARIN ASSAY,UFH 0.5 IU/mL Normal [facility] Comment on above: Result Comment: The therapeutic reference range for UFH may be either 0.3-0.6 IU/mL or 0.3-0.7 IU/mL based on the clinical setting for anticoagulant therapy and the associated nomogram used. For heparin dosing guidelines based on clinical scenario and Heparin Assay results, please refer to local Pharmacy and [facility] Guidelines for Anticoagulation therapy available on the [facility] intranet at:[email or web address]_Guidelines_[email or web address]_[email or web address].aspx Performed By: #### E MRAD ####NO LOCATION NEEDED MAGNESIUMon 04-04-2018 Magnesium mass conc 1.88 mg/dL Normal 1.60 - 2.40 [facility] Comment on above: Performed By: #### C BC ####[id number] [place] [address] RENAL FUNCTION PANELon 04-04 Albumin mass conc Canceled Normal [facility] Comment on above: Order Comment: TEST RENAL FUNCTION PANEL WAS CANCELLED, 04/04/2018 18:30 ?Cancel Reason:Cancelled. Performed By: #### C BC ####[id number] [place] [address] Anion gap 3 molar conc Canceled Normal [facility] Comment on above: Order Comment: TEST RENAL FUNCTION PANEL WAS CANCELLED, 04/04/2018 18:30 ?Cancel Reason:Cancelled. Performed By: #### C BC ####[id number] [place] [address] Calcium mass conc Canceled Normal [facility] Comment on above: Order Comment: TEST RENAL FUNCTION PANEL WAS CANCELLED, 04/04/2018 18:30 ?Cancel Reason:Cancelled. Performed By: #### C BC ####[id number] [place] [address] Chloride molar conc Canceled Normal [facility] Comment on above: Order Comment: TEST RENAL FUNCTION PANEL WAS CANCELLED, 04/04/2018 18:30 ?Cancel Reason:Cancelled. Performed By: #### C BC ####[id number] [place] [address] Creatinine mass conc Canceled Normal [facility] Comment on above: Order Comment: TEST RENAL FUNCTION PANEL WAS CANCELLED, 04/04/2018 18:30 ?Cancel Reason:Cancelled. Performed By: #### C BC ####[id number] [place] [address] GFR- AM. Canceled Normal [facility] Comment on above: Order Comment: TEST RENAL FUNCTION PANEL WAS CANCELLED, 04/04/2018 18:30 ?Cancel Reason:Cancelled. Result Comment: CALC ULATIONS OF ESTIMATED GFR ARE PERFORMED USING THE MDRD STUDY EQUATION FOR THE IDMS-TRACEABLE CREATININE METHODS. CLIN CHEM 2007;53:766-72 Performed By: #### C BC ####[id number] [place] [address] GFR-NON AM. Canceled Normal [facility] Comment on above: Order Comment: TEST RENAL FUNCTION PANEL WAS CANCELLED, 04/04/2018 18:30 ?Cancel Reason:Cancelled. Performed By: #### C BC ####[id number] [place] [address] Glucose mass conc Canceled Normal [facility] Comment on above: Order Comment: TEST RENAL FUNCTION PANEL WAS CANCELLED, 04/04/2018 18:30 ?Cancel Reason:Cancelled. Performed By: #### C BC ####[id number] [place] [address] HCO3 molar conc (Bld) Canceled Normal [facility] Comment on above: Order Comment: TEST RENAL FUNCTION PANEL WAS CANCELLED, 04/04/2018 18:30 ?Cancel Reason:Cancelled. Performed By: #### C BC ####[id number] [place] [address] Phosphate mass conc Canceled Normal [facility] Comment on above: Order Comment: TEST RENAL FUNCTION PANEL WAS CANCELLED, 04/04/2018 18:30 ?Cancel Reason:Cancelled. Result Comment: The performance characteristics of phosphorus testing in heparinized plasma have been validated by the individual laboratory site where testing is performed. Testing on heparinized plasma is not approved by the FDA; however, such approval is not necessary. Performed By: #### C BC ####[id number] [place] [address] Potassium molar conc Canceled Normal [facility] Comment on above: Order Comment: TEST RENAL FUNCTION PANEL WAS CANCELLED, 04/04/2018 18:30 ?Cancel Reason:Cancelled. Performed By: #### C BC ####[id number] [place] [address] Sodium molar conc Canceled Normal [facility] Comment on above: Order Comment: TEST RENAL FUNCTION PANEL WAS CANCELLED, 04/04/2018 18:30 ?Cancel Reason:Cancelled. Performed By: #### C BC ####[id number] [place] [address] Urea nitrogen mass conc Canceled Normal [facility] Comment on above: Order Comment: TEST RENAL FUNCTION PANEL WAS CANCELLED, 04/04/2018 18:30 ?Cancel Reason:Cancelled. Performed By: #### C BC ####[id number] [place] [address] Albumin mass conc 3.2 g/dL Low 3.4 - 5.0 [facility] Comment on above: Performed By: #### C BC ####[id number] [place] [address] Anion gap 3 molar conc 13 mmol/L Normal 10 - 20 [facility] Comment on above: Performed By: #### C BC ####[id number] [place] [address] Calcium mass conc 8.3 mg/dL Low 8.6 - 10.6 [facility] Comment on above: Performed By: #### C BC ####[id number] [place] [address] Chloride molar conc 97 mmol/L Low 98 - 107 [facility] Comment on above: Performed By: #### C BC ####[id number] [place] [address] Creatinine mass conc 1.24 mg/dL Normal 0.50 - 1.30 [facility] Comment on above: Performed By: #### C BC ####[id number] [place] [address] GFR- AM. 70 mL/min/1.73m2 Normal >60 [facility] Comment on above: Result Comment: CALC ULATIONS OF ESTIMATED GFR ARE PERFORMED USING THE MDRD STUDY EQUATION FOR THE IDMS-TRACEABLE CREATININE METHODS. CLIN CHEM 2007;53:766-72 Performed By: #### C BC ####[id number] [place] [address] GFR-NON AM. 58 mL/min/1.73m2 Abnormal >60 [facility] Comment on above: Performed By: #### C BC ####[id number] [place] [address] Glucose mass conc 131 mg/dL High 74 - 99 [facility] Comment on above: Performed By: #### C BC ####[id number] [place] [address] HCO3 molar conc (Bld) 27 mmol/L Normal 21 - 32 [facility] Comment on above: Performed By: #### C BC ####[id number] [place] [address] Phosphate mass conc 2.9 mg/dL Normal 2.5 - 4.9 [facility] Comment on above: Result Comment: The performance characteristics of phosphorus testing in heparinized plasma have been validated by the individual laboratory site where testing is performed. Testing on heparinized plasma is not approved by the FDA; however, such approval is not necessary. Performed By: #### C BC ####[id number] [place] [address] Potassium molar conc 3.8 mmol/L Normal 3.5 - 5.3 [facility] Comment on above: Performed By: #### C BC ####[id number] [place] [address] Sodium molar conc 133 mmol/L Low 136 - 145 [facility] Comment on above: Performed By: #### C BC ####[id number] [place] [address] Urea nitrogen mass conc 26 mg/dL High 6 - 23 [facility] Comment on above: Performed By: #### C BC ####[id number] [place] [address] Albumin mass conc 3.2 g/dL Low 3.4 - 5.0 [facility] Comment on above: Performed By: #### E MRAD ####NO LOCATION NEEDED Anion gap 3 molar conc 13 mmol/L Normal 10 - 20 [facility] Comment on above: Performed By: #### E MRAD ####NO LOCATION NEEDED Calcium mass conc 8.3 mg/dL Low 8.6 - 10.6 [facility] Comment on above: Performed By: #### E MRAD ####NO LOCATION NEEDED Chloride molar conc 97 mmol/L Low 98 - 107 [facility] Comment on above: Performed By: #### E MRAD ####NO LOCATION NEEDED Creatinine mass conc 1.30 mg/dL Normal 0.50 - 1.30 [facility] Comment on above: Performed By: #### E MRAD ####NO LOCATION NEEDED GFR- AM. 67 mL/min/1.73m2 Normal >60 [facility] Comment on above: Result Comment: CALC ULATIONS OF ESTIMATED GFR ARE PERFORMED USING THE MDRD STUDY EQUATION FOR THE IDMS-TRACEABLE CREATININE METHODS. CLIN CHEM 2007;53:766-72 Performed By: #### E MRAD ####NO LOCATION NEEDED GFR-NON AM. 55 mL/min/1.73m2 Abnormal >60 [facility] Comment on above: Performed By: #### E MRAD ####NO LOCATION NEEDED Glucose mass conc 198 mg/dL High 74 - 99 [facility] Comment on above: Performed By: #### E MRAD ####NO LOCATION NEEDED HCO3 molar conc (Bld) 26 mmol/L Normal 21 - 32 [facility] Comment on above: Performed By: #### E MRAD ####NO LOCATION NEEDED Phosphate mass conc 2.7 mg/dL Normal 2.5 - 4.9 [facility] Comment on above: Result Comment: The performance characteristics of phosphorus testing in heparinized plasma have been validated by the individual laboratory site where testing is performed. Testing on heparinized plasma is not approved by the FDA; however, such approval is not necessary. Performed By: #### E MRAD ####NO LOCATION NEEDED Potassium molar conc 4.3 mmol/L Normal 3.5 - 5.3 [facility] Comment on above: Performed By: #### E MRAD ####NO LOCATION NEEDED Sodium molar conc 132 mmol/L Low 136 - 145 [facility] Comment on above: Performed By: #### E MRAD ####NO LOCATION NEEDED Urea nitrogen mass conc 27 mg/dL High 6 - 23 [facility] Comment on above: Performed By: #### E [...] Electronically signed by: STANISLAV RADFORD MD Normal [facility] CBCon 04-03-2018 Erythrocyte distribution width Auto Ratio (RBC) 13.0 % Normal 11.5 - 14.5 [facility] Comment on above: Performed By: #### E MRAD ####NO LOCATION NEEDED Hematocrit Auto Volume Fraction (Bld) 28.5 % Low 41.0 - 52.0 [facility] Comment on above: Performed By: #### E MRAD ####NO LOCATION NEEDED Hemoglobin mass conc (Bld) 9.6 g/dL Low 13.5 - 17.5 [facility] Comment on above: Performed By: #### E MRAD ####NO LOCATION NEEDED MCHC Auto mass conc (RBC) 33.7 g/dL Normal 32.0 - 36.0 [facility] Comment on above: Performed By: #### E MRAD ####NO LOCATION NEEDED MCV Auto Entitic volume (RBC) 93 fL Normal 80 - 100 [facility] Comment on above: Performed By: #### E MRAD ####NO LOCATION NEEDED Nucleated RBC/100 WBC Ratio (Bld) 0.0 /100 WBC Normal 0.0-0.0 [facility] Comment on above: Performed By: #### E MRAD ####NO LOCATION NEEDED Platelets Auto #/vol (Bld) 130 10*3/uL Low 150 - 450 [facility] Comment on above: Performed By: #### E MRAD ####NO LOCATION NEEDED RBC Auto #/vol (Bld) 3.08 x10E12/L Low 4.50 - 5.90 [facility] Comment on above: Performed By: #### E MRAD ####NO LOCATION NEEDED WBC Auto #/vol (Bld) 10.9 10*3/uL Normal 4.4 - 11.3 [facility] Comment on above: Performed By: #### E MRAD ####NO LOCATION NEEDED CBC AND DIFFERENTIALon 04-03 % AUTOMATED IMMATURE GRAN 0.6 % Normal 0.0 - 0.9 [facility] Comment on above: Result Comment: Perc ent differential counts (%) should be interpreted in the context of the absolute cell counts (cells/L). Performed By: #### E MRAD ####NO LOCATION NEEDED % NEUTROPHIL 60.9 % Normal 40.0 - 80.0 [facility] Comment on above: Performed By: #### E MRAD ####NO LOCATION NEEDED Basophils/100 WBC Auto (Bld) 0.07 x10E9/L Normal 0.00 - 0.10 [facility] Comment on above: Performed By: #### E MRAD ####NO LOCATION NEEDED Basophils/100 WBC Auto (Bld) 0.7 % Normal 0.0 - 2.0 [facility] Comment on above: Performed By: #### E MRAD ####NO LOCATION NEEDED Eosinophils Auto #/vol (Bld) 0.67 10*3/uL Normal 0.00 - 0.70 [facility] Comment on above: Performed By: #### E MRAD ####NO LOCATION NEEDED Eosinophils/100 WBC Auto (Bld) 7.1 % Normal 0.0 - 6.0 [facility] Comment on above: Performed By: #### E MRAD ####NO LOCATION NEEDED Erythrocyte distribution width Auto Ratio (RBC) 12.8 % Normal 11.5 - 14.5 [facility] Comment on above: Performed By: #### E MRAD ####NO LOCATION NEEDED Hematocrit Auto Volume Fraction (Bld) 28.5 % Low 41.0 - 52.0 [facility] Comment on above: Performed By: #### E MRAD ####NO LOCATION NEEDED Hemoglobin mass conc (Bld) 9.6 g/dL Low 13.5 - 17.5 [facility] Comment on above: Performed By: #### E MRAD ####NO LOCATION NEEDED Lymphocytes Auto #/vol (Bld) 1.99 10*3/uL Normal 1.20 - 4.80 [facility] Comment on above: Performed By: #### E MRAD ####NO LOCATION NEEDED Lymphocytes/100 WBC Auto (Bld) 21.0 % Normal 13.0 - 44.0 [facility] Comment on above: Performed By: #### E MRAD ####NO LOCATION NEEDED MCHC Auto mass conc (RBC) 33.7 g/dL Normal 32.0 - 36.0 [facility] Comment on above: Performed By: #### E MRAD ####NO LOCATION NEEDED MCV Auto Entitic volume (RBC) 92 fL Normal 80 - 100 [facility] Comment on above: Performed By: #### E MRAD ####NO LOCATION NEEDED Monocytes Auto #/vol (Bld) 0.92 10*3/uL Normal 0.10 - 1.00 [facility] Comment on above: Performed By: #### E MRAD ####NO LOCATION NEEDED Monocytes/100 WBC Auto (Bld) 9.7 % Normal 2.0 - 10.0 [facility] Comment on above: Performed By: #### E MRAD ####NO LOCATION NEEDED Neutrophils Auto #/vol (Bld) 5.76 10*3/uL Normal 1.20 - 7.70 [facility] Comment on above: Performed By: #### E MRAD ####NO LOCATION NEEDED Nucleated RBC/100 WBC Ratio (Bld) 0.0 /100 WBC Normal 0.0-0.0 [facility] Comment on above: Performed By: #### E MRAD ####NO LOCATION NEEDED Platelets Auto #/vol (Bld) 144 10*3/uL Low 150 - 450 [facility] Comment on above: Performed By: #### E MRAD ####NO LOCATION NEEDED RBC Auto #/vol (Bld) 3.09 x10E12/L Low 4.50 - 5.90 [facility] Comment on above: Performed By: #### E MRAD ####NO LOCATION NEEDED WBC Auto #/vol (Bld) 9.5 10*3/uL Normal 4.4 - 11.3 [facility] Comment on above: Performed By: #### E [...] Contact Information:Provider/Team Contact Info-Pager Number: cardiac surgery [phone] Electronic Signatures:Mary Munroe (LOCKSTITCH BINDER-BUTTERMILK DRIER OPERATOR) (Signed 03-Apr-2018 16:04)Authored: Event, Provider / Team Contact Information Last Updated: 03-Apr-2018 16:04 by Mary Munroe (LOCKSTITCH BINDER-BUTTERMILK DRIER OPERATOR) Normal [facility] Daily Progress Note-Cardiac Surgeryon 04-03-2018 Protein mass [...] Intake and Output -----Mn/Dy/Year TimeIntakeOutputNetNov 2017 6:00 [id number] 2017 10:00 [id number] 2017 2:00 [id number] The Intake and Output Totals for the last 24 hours are:[id number] Intake Output Enteral - Oral 820 mL Urine 1180 mL IV Fluids 55 mL Chest Tubes 170 mL T GQMGHsT8Edlwa62.96051927/6892% Date/Time04/03 6: 6: 6: 6: 6:52Range(36C - 37.2C ) (69 - 86 ) (16 - 20 ) (108 - 134 )/ (66 - 75 ) (91% -95% ) As of 03-Apr-2018 04:00:00, patient is on 2% oxygen via nasal cannula.Highest temp of 37.2 C was recorded at 04/03 6:52 Eazdjwi73/16 6:00: Weight in kg (Weight (kg)) 109.811 6:00: Weight in lbs ((lbs)) 242.2 Physical [...] Water Injectable: 25 gram(s) IntraVenous Push Every 63Fowhhit4. Glucagon Injectable: 1 mg IntraMuscular Every 15 [...] 06:57:00 ResultValueMagnesium, Serum 1.94 Glucose_POCT Trending View Wirjgg91-Gnv-1877 21:05:00 02-Apr-2018 17:14:00 02-Apr-2018 11:05:00 02-Apr-2018 07:21:00 02-Apr-2018 03:09:00Glucose-FUJJ406 H 137 H 310 H 223 H [...] [facility] for CABG eval. Ptpresented to [place] with chest pressure and dyspnea. He as found to havebilat PEs, was started on Heparin gtt, and transferred to [facility]. He wasfound to have a troponin leak at 2.25. Cardiology was consulted and the patientwas diagnosed with ACS, NSTEMI. He underwent a TTE and cath. 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, insulin gtt;one CT with air leak [...] - 04/03 replaced K Endo - h/o Brigida's disease, DM, hypothyroidism- Endo is following, appreciate- hydrocortisone taper ordered as per Endo recs for Ontario's- starting fludrocortisone 4 days per week on [...] early the week of 04/06- plan home service director and PT- continue to assess discharge needs Signature/Cosignature/Attestat ion:Provider/Team Contact Info-Pager Numbercardiac surgery [phone] Electronic Signatures:Mary Munroe (LOCKSTITCH BINDER-BUTTERMILK DRIER OPERATOR) (Signed 03-Apr-2018 21:30)Authored: Service, Subjective Data, Objective Data, Assessment and Plan,Signature/Cosignature/Att estation Last Updated: 03-Apr-2018 21:30 by Mary Munroe (LOCKSTITCH BINDER-BUTTERMILK DRIER OPERATOR) Normal [facility] Daily Progress Note-Endocrin ologyon 04-03-2018 Protein mass conc Consult Type: subseq uent visit/care Service: Endocrinology Subjective Data:DON ELKINS is a 67 year old Male who is Hospital Day # 17 and POD #3 for CABGx 3;-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 Objective Data: Objective Information: ---- Intake and Output -----Mn/Dy/Year TimeIntakeOutputNetAtrium Health 2017 2:00 [id number] 2017 6:00 [id number] 2017 10:00 [id number] The Intake and Output Totals for the last 24 hours are:ZkbfdlBcxvbkMvc1778762-097 T YHOGUwQ2Dswiq63.28386470/5194% Date/Time04/03 14: 14: 14: 14: 14:40Range(36.2C - [...] Water Injectable: 25 gram(s) IntraVenous Push Every 90Jmaumaw7. Glucagon Injectable: 1 mg IntraMuscular Every 15 Minutes4. Ondansetron Injectable: 4 mg IntraVenous Push Every 6 Hours5. oxyCODONE Immediate Release: 5 mg Oral Every 4 Hours6. oxyCODONE Immediate Release: 10 mg Oral Every 4 Hours Currently Suspended Medications -- 1. Lisinopril: 20 mg Oral Every Night Recent Lab Results: Results: I have reviewed these laboratory results: Glucose_POCT Trending View [id number]-Ped-1169 11:22:00 02-Apr-2018 21:05:00 02-Apr-2018 17:14:00 02-Apr-2018 11:05:00 02-Apr-2018 07:21:00Glucose-TIHW042 H 200 H 137 H 310 H [...] a past medicalhistory of HTN, HLD, T2DM, Ontario's disease, hypothyroidism, COPD, AKASH onCPAP, prostate ca s/p prostatectomy in 2011, and psoriasis who was [facility], INCI service at [facility] from [facility] on 03/18 forCA eval.Endocrine consulted fr evaluation of Ontario disease and treatment periop Patient was on supra-therapeutic dose of HCT 20-0-20 , fludrocortisone 0.1 ,mgdailyPatient has uncontrolled HTN and uncontrolled BSIVC filter placed on abg 03/31 1. Brigida's Disease- HC taper as belowon 04/03 please make HCt PO 20 mg @ 8 am - 20 mg @ noon - 10 mg @ 5 pmthen on make HCt PO 20 mg @ 8 [...] times weekly ( and Friday) on04/06 2. V3BP--iytfywmr Glargine today as : 20 units QHS and Lispro 6 TIDAC-ISS correction to 2 units per 50 >150--Will follow Please page with questions [phone] Patient seen and examined, plan discussed with Dr Geller Electronic Signatures:Bryon Sandoval (Fellow)) (Signed 03-Apr-2018 14:47)Authored: Service, Subjective Data, Objective Data, Assessment and Plan,Signature/Cosignature/Att estationRose Mary Burrell) (Signed 03-Apr-2018 18:05)Authored: Signature/Cosignature/Attestat ionCo-Signer: Service, Subjective Data, Objective Data, Assessment and Plan,Signature/Cosignature/Att estation Last Updated: 03-Apr-2018 18:05 by Rose Mary Burrell) Normal [facility] GLUCOSE-POCTon 04-03-2018 Glucose mass conc 294 mg/dL High 74 - 99 [facility] Comment on above: Performed By: #### E MRAD ####NO LOCATION NEEDED Glucose mass conc 151 mg/dL High 74 - 99 [facility] Comment on above: Performed By: #### E MRAD ####NO LOCATION NEEDED MAGNESIUMon 04-03-2018 Magnesium mass conc 1.94 mg/dL Normal 1.60 - 2.40 [facility] Comment on above: Performed By: #### E MRAD ####NO LOCATION NEEDED PT/INRon 04-03-2018 INR Coag RelTime (PPP) 1.2 {INR} High 0.9 - 1.1 [facility] Comment on above: Performed By: #### E MRAD ####NO LOCATION NEEDED Prothrombin time (PT) Coag time (PPP) 13.7 s High 9.7 - 12.7 [facility] Comment on above: Result Comment: Note new reference range as of 03/10/2018. Performed By: #### E MRAD ####NO LOCATION NEEDED RENAL FUNCTION PANELon 04-03 Albumin mass conc 3.4 g/dL Normal 3.4 - 5.0 [facility] Comment on above: Performed By: #### E MRAD ####NO LOCATION NEEDED Anion gap 3 molar conc 14 mmol/L Normal 10 - 20 [facility] Comment on above: Performed By: #### E MRAD ####NO LOCATION NEEDED Calcium mass conc 8.5 mg/dL Low 8.6 - 10.6 [facility] Comment on above: Performed By: #### E MRAD ####NO LOCATION NEEDED Chloride molar conc 95 mmol/L Low 98 - 107 [facility] Comment on above: Performed By: #### E MRAD ####NO LOCATION NEEDED Creatinine mass conc 1.32 mg/dL High 0.50 - 1.30 [facility] Comment on above: Performed By: #### E MRAD ####NO LOCATION NEEDED GFR- AM. 65 mL/min/1.73m2 Normal >60 [facility] Comment on above: Result Comment: CALC ULATIONS OF ESTIMATED GFR ARE PERFORMED USING THE MDRD STUDY EQUATION FOR THE IDMS-TRACEABLE CREATININE METHODS. CLIN CHEM 2007;53:766-72 Performed By: #### E MRAD ####NO LOCATION NEEDED GFR-NON AM. 54 mL/min/1.73m2 Abnormal >60 [facility] Comment on above: Performed By: #### E MRAD ####NO LOCATION NEEDED Glucose mass conc 125 mg/dL High 74 - 99 [facility] Comment on above: Performed By: #### E MRAD ####NO LOCATION NEEDED HCO3 molar conc (Bld) 28 mmol/L Normal 21 - 32 [facility] Comment on above: Performed By: #### E MRAD ####NO LOCATION NEEDED Phosphate mass conc 3.1 mg/dL Normal 2.5 - 4.9 [facility] Comment on above: Result Comment: The performance characteristics of phosphorus testing in heparinized plasma have been validated by the individual laboratory site where testing is performed. Testing on heparinized plasma is not approved by the FDA; however, such approval is not necessary. Performed By: #### E MRAD ####NO LOCATION NEEDED Potassium molar conc 3.9 mmol/L Normal 3.5 - 5.3 [facility] Comment on above: Performed By: #### E MRAD ####NO LOCATION NEEDED Sodium molar conc 133 mmol/L Low 136 - 145 [facility] Comment on above: Performed By: #### E MRAD ####NO LOCATION NEEDED Urea nitrogen mass conc 25 mg/dL High 6 - 23 [facility] Comment on above: Performed By: #### E MRAD ####NO LOCATION NEEDED Albumin mass conc 3.5 g/dL Normal 3.4 - 5.0 [facility] Comment on above: Performed By: #### E MRAD ####NO LOCATION NEEDED Anion gap 3 molar conc 13 mmol/L Normal 10 - 20 [facility] Comment on above: Performed By: #### E MRAD ####NO LOCATION NEEDED Calcium mass conc 8.6 mg/dL Normal 8.6 - 10.6 [facility] Comment on above: Performed By: #### E MRAD ####NO LOCATION NEEDED Chloride molar conc 94 mmol/L Low 98 - 107 [facility] Comment on above: Performed By: #### E MRAD ####NO LOCATION NEEDED Creatinine mass conc 1.37 mg/dL High 0.50 - 1.30 [facility] Comment on above: Performed By: #### E MRAD ####NO LOCATION NEEDED GFR- AM. 63 mL/min/1.73m2 Normal >60 [facility] Comment on above: Result Comment: CALC ULATIONS OF ESTIMATED GFR ARE PERFORMED USING THE MDRD STUDY EQUATION FOR THE IDMS-TRACEABLE CREATININE METHODS. CLIN CHEM 2007;53:766-72 Performed By: #### E MRAD ####NO LOCATION NEEDED GFR-NON AM. 52 mL/min/1.73m2 Abnormal >60 [facility] Comment on above: Performed By: #### E MRAD ####NO LOCATION NEEDED Glucose mass conc 163 mg/dL High 74 - 99 [facility] Comment on above: Performed By: #### E MRAD ####NO LOCATION NEEDED HCO3 molar conc (Bld) 28 mmol/L Normal 21 - 32 [facility] Comment on above: Performed By: #### E MRAD ####NO LOCATION NEEDED Phosphate mass conc 3.0 mg/dL Normal 2.5 - 4.9 [facility] Comment on above: Result Comment: The performance characteristics of phosphorus testing in heparinized plasma have been validated by the individual laboratory site where testing is performed. Testing on heparinized plasma is not approved by the FDA; however, such approval is not necessary. Performed By: #### E MRAD ####NO LOCATION NEEDED Potassium molar conc 4.2 mmol/L Normal 3.5 - 5.3 [facility] Comment on above: Performed By: #### E MRAD ####NO LOCATION NEEDED Sodium molar conc 131 mmol/L Low 136 - 145 [facility] Comment on above: Performed By: #### E MRAD ####NO LOCATION NEEDED Urea nitrogen mass conc 24 mg/dL High 6 - 23 [facility] Comment on above: Performed By: #### E [...] findingsas stated. This study was interpreted at [facility], [place], [place].Electronically signed by: STANISLAV RADFORD MD [facility] CHEST 1 VIEW Name: DON ELKINS STUDY:CHEST [...] findingsas stated. This study was interpreted at [facility], [place], [place].Electronically signed by: STANISLAV RADFORD MD Normal [facility] ARTERIAL FULL PANELon 2017 Anion gap 3 molar conc 6 mmol/L Low 10 - 25 [facility] Comment on above: Performed By: #### E MRAD ####NO LOCATION NEEDED BASE EXCESS-BLOOD 4.1 mmol/L High -2.0 - 3.0 [facility] Comment on above: Performed By: #### E MRAD ####NO LOCATION NEEDED CALCIUM,IONIZED 1.13 mmol/L Normal 1.10 - 1.33 [facility] Comment on above: Performed By: #### E MRAD ####NO LOCATION NEEDED Chloride molar conc 100 mmol/L Normal 98 - 107 [facility] Comment on above: Performed By: #### E MRAD ####NO LOCATION NEEDED Glucose mass conc 182 mg/dL High 74 - 99 [facility] Comment on above: Performed By: #### E MRAD ####NO LOCATION NEEDED Hematocrit Auto Volume Fraction (Bld) 24.0 % Low 41.0 - 52.0 [facility] Comment on above: Performed By: #### E MRAD ####NO LOCATION NEEDED HGB,CALCULATED 8.2 g/dL Low 13.5 - 17.5 [facility] Comment on above: Performed By: #### E MRAD ####NO LOCATION NEEDED Lactate molar conc 1.5 mmol/L Normal 0.4 - 2.0 [facility] Comment on above: Performed By: #### E MRAD ####NO LOCATION NEEDED Oxygen ppres (BldA) 93 mm[Hg] Normal 85 - 95 [facility] Comment on above: Performed By: #### E MRAD ####NO LOCATION NEEDED PCO2 46 mmHg High 38 - 42 [facility] Comment on above: Performed By: #### E MRAD ####NO LOCATION NEEDED pH (Bld) 7.41 [pH] Normal 7.38 - 7.42 [facility] Comment on above: Performed By: #### E MRAD ####NO LOCATION NEEDED Potassium molar conc 4.1 mmol/L Normal 3.5 - 5.3 [facility] Comment on above: Performed By: #### E MRAD ####NO LOCATION NEEDED RBC Auto #/vol (Bld) 29.2 mmol/L High 22.0 - 26.0 [facility] Comment on above: Performed By: #### E MRAD ####NO LOCATION NEEDED SO2 99 % Normal 94 - 100 [facility] Comment on above: Performed By: #### E MRAD ####NO LOCATION NEEDED Sodium molar conc 131 mmol/L Low 136 - 145 [facility] Comment on above: Performed By: #### E MRAD ####NO LOCATION NEEDED CALCIUM, IONIZEDon 8 CALCIUM,IONIZED 1.11 mmol/L Normal 1.10 - 1.33 [facility] Comment on above: Result Comment: The performance [...] (RBC) 13.3 % Normal 11.5 - 14.5 [facility] Comment on above: Performed By: #### E MRAD ####NO LOCATION NEEDED Hematocrit Auto Volume Fraction (Bld) 29.1 % Low 41.0 - 52.0 [facility] Comment on above: Performed By: #### E MRAD ####NO LOCATION NEEDED Hemoglobin mass conc (Bld) 9.5 g/dL Low 13.5 - 17.5 [facility] Comment on above: Performed By: #### E MRAD ####NO LOCATION NEEDED MCHC Auto mass conc (RBC) 32.6 g/dL Normal 32.0 - 36.0 [facility] Comment on above: Performed By: #### E MRAD ####NO LOCATION NEEDED MCV Auto Entitic volume (RBC) 94 fL Normal 80 - 100 [facility] Comment on above: Performed By: #### E MRAD ####NO LOCATION NEEDED Nucleated RBC/100 WBC Ratio (Bld) 0.0 /100 WBC Normal 0.0-0.0 [facility] Comment on above: Performed By: #### E MRAD ####NO LOCATION NEEDED Platelets Auto #/vol (Bld) 122 10*3/uL Low 150 - 450 [facility] Comment on above: Performed By: #### E MRAD ####NO LOCATION NEEDED RBC Auto #/vol (Bld) 3.08 x10E12/L Low 4.50 - 5.90 [facility] Comment on above: Performed By: #### E MRAD ####NO LOCATION NEEDED WBC Auto #/vol (Bld) 10.1 10*3/uL Normal 4.4 - 11.3 [facility] Comment on above: Performed By: #### E MRAD ####NO LOCATION NEEDED COAGULATION SCREENon 018 aPTT Coag time (Bld) 28 s Normal 28 - 38 [facility] Comment on above: Result Comment: Note new reference range as of 03/10/2018. THE APTT IS NO LONGER USED FOR MONITORING UNFRACTIONATED HEPARIN THERAPY. FOR MONITORING HEPARIN THERAPY, USE THE HEPARIN ASSAY. Performed By: #### E MRAD ####NO LOCATION NEEDED INR Coag RelTime (PPP) 1.4 {INR} High 0.9 - 1.1 [facility] Comment on above: Performed By: #### E MRAD ####NO LOCATION NEEDED Prothrombin time (PT) Coag time (PPP) 15.2 s High 9.7 - 12.7 [facility] Comment on above: Result Comment: Note new reference range as of 03/10/2018. Performed By: #### E MRAD ####NO LOCATION NEEDED CORTISOL, P.M.on 04-02-2018 CORTISOL, P.M. 13.8 ug/dL High 2.5 - 10.0 [facility] Comment on above: Performed By: #### E [...] around the unit. Objective Data: Objective InformationT ZNNGVcM6Cpcgo57.6439489%Date/T 8: 7: 7: 7:00Range(36.3C - 37.2C ) [...] (L/min/m2)2.4(2.4 - 3.9)04/01 10:00 Direct Arterial Blood OpiubhotLzlaohdt098(120 - 159)04/02 7:00Diastolic (mm Hg)51(51 - 77)04/02 7:00Mean (mm Hg)73(72 - 101)04/02 7:00Pulse Pressure (mm Hg)71(66 - 94)04/02 7:78Bknbaksv507(120 - 159)04/02 7:00Diastolic (mm Hg)51(51 - 77)04/02 7:00Mean (mm Hg)73(72 - 101)04/02 7:00Pulse Pressure (mm Hg)71(66 - 94)04/02 7:00 LFNJvjyjmeg68(28 - 39)04/01 11:00Diastolic (mm Hg)22(10 - 22)04/01 11:00Mean (mm Hg)9(9 - 28)04/01 11:00 ---- Intake and Output -----Mn/Dy/Year TimeIntakeOutputNetNov 2017 6:00 [id number] 2017 10:00 [id number] 2017 2:00 [id number] The Intake and Output Totals for the last 24 hours are:[id number] Drain and tube details (included in I&O [...] \ Recent Arterial Blood Gas Results 04/02/2018 02:62nK129 24 h range: ( 73 - 93 )pH7.41 24 h range: ( 7.41 - 7.43 )yKG591 24 h range: ( 38 - 46 )SO299 24 h range: ( 96 - 99 )Base Excess4.1 24 h range: ( 0.9 - 4.1 )Jescsltopuj03.2 24 h range: ( 25.2 - 29.2 ) Assessment and Plan:Daily Risk Screen: Does patient have a central lineno Does patient have an indwelling urinary catheteryes Plan for indwelling urinary catheter removal todayyes Is the patient intubatedno Other:Assessment: Assessment:67 year old with a history of CAD, HTN, HLD, DM2, Gerd, Ontario's, andhypothyroid presents from the OR s/p CABG [...] per SICU protocol ENDO: History of diabetes, [place]'s and hypothyroid. HbA1c: 7.9. Endocrinefollowing patient. Patient on insulin drip 03/31, transitioned to sliding scalemorning 04/01. Currently on lantus and lispro per endocrine recommendations -->- Consulted Endocrine for management of Brigida's [...] Filiberto Richey - dc Dispo: Continue SICU care.#90170 Code Status: Code StatusFull Code SCIP:Urinary Catheter Removed Post-Op Day 2: noReason Patient Needs Her: Strict I&0Patient on Beta Danica Prior to Admission: noProphylactic antibiotics scheduled to be discontinued with 24 hr of anesthesiaend time (48 hr for cardiac surgery): yesType of VTE Prophylaxis Ordered: Subcutaneous heparin and SCDs Signature/Cosignature/Attestat ion:Comments/ Additional Sjicvufh87b/o male s/p CABG x3 with Dr Gaston. [...] Updated: 02-Apr-2018 14:54 by Abelino Klein) Normal [facility] Daily Progress Note-Endocrin ologyon 04-02-2018 Protein mass conc Consult Type: subseq uent visit/care Service: Endocrinology Subjective Data:DON ELKINS is a 67 year old Male who is Hospital Day # 16 and POD #2 for CABGx 3;-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 Objective Data: Objective Information: ---- Intake and Output -----Mn/Dy/Year TimeIntakeOutputNetNov 2017 2:00 [id number] 2017 6:00 [id number] 2017 10:00 [id number] The Intake and Output Totals for the last 24 hours are:[id number] Physical Exam: Constitutional: Well developed, awake/alert/oriented x3, [...] Water Injectable: 25 gram(s) IntraVenous Push Every 46Qyugunl0. Glucagon Injectable: 1 mg IntraMuscular Every 15 Minutes4. Ondansetron Injectable: 4 mg IntraVenous Push Every 6 Hours5. oxyCODONE Immediate Release: 5 mg Oral Every 4 Hours6. oxyCODONE Immediate Release: 10 mg Oral Every 4 Hours Currently Suspended Medications -- 1. Lisinopril: 20 mg Oral Every Night Recent Lab Results: Results: I have reviewed these laboratory results: Glucose_POCT Trending View [id number]-Esg-6626 17:14:00 02-Apr-2018 11:05:00 02-Apr-2018 07:21:00 02-Apr-2018 03:09:00 01-Apr-2018 23:14:00 01-Apr-2018 19:21:00 39-Wqm-569740:19:00 01-Apr-2018 11:07:00 01-Apr-2018 07:27:00 01-Apr-2018 03:17:00 01-Apr-2018 00:07:00Glucose-RIEZ461 H 310 H 223 H 199 H 167 H 174 H 152H 181 H 228 H 168 H 175 H Renal Function Panel Trending View Heyeaj51-Lga-9166 02:35:00 01-Apr-2018 18:56:00 01-Apr-2018 03:26:00Glucose, Noyws362 H 169 H 167 SLR335 L 134 L 137K4.1 4.2 4.4CL97 L 99 100Bicarbonate, Serum27 28 26Anion Gap, Serum13 11 23MLW80 20 64HMDMY9.21 1.35 H 1.30GFR-Non Kmsmzqib96 A 53 A 55 AGFR- Uwuvmera27 64 67Calcium, Serum8.5 L 8.8 8.7Phosphorus, Serum3.6 3.3 4.0ALB3.5 3.7 3.7 Cortisol P.M. Trending View Gndckh98-Oox-9570 20:38:00 01-Apr-2018 18:56:00 01-Apr-2018 17:14:00Cortisol P.M.13.8 H 22.4 H 34.8 H Assessment and Plan:Assessment: Mr. 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 [place]'s Disease-- Fludrocortisone 0.05 mg 4 times weekly [...] noon - 2.5 mg @ 5pm 2. H9QJ--oserlyer Glargine today as : 20 units QHS and Lispro 6 TIDAC-ISS correction to 2 units per 50 >150--Will follow Please page with questions [phone] Patient seen and examined, plan discussed with [...] patient (as noted in the above attestation) [id number] Electronic Signatures:Starr Quevedo) (Signed 03-Apr-2018 15:53)Authored: Signature/Cosignature/Attestat ionCo-Signer: Service, Subjective Data, Objective Data, Assessment and Plan,Signature/Cosignature/Att estationHasmukh Stephenson (Resident)) (Signed 02-Apr-2018 17:27)Authored: Service, Subjective Data, Objective Data, Assessment and Plan,Signature/Cosignature/Att estation Last Updated: 03-Apr-2018 15:53 by Starr Quevedo) Normal [facility] GLUCOSE-POCTon 04-02-2018 Glucose mass conc 200 mg/dL High [facility] 99 [facility] Comment on above: Performed By: #### E MRAD ####NO LOCATION NEEDED Glucose mass conc 137 mg/dL [address] Comment on above: Performed By: #### E MRAD ####NO LOCATION NEEDED Glucose mass conc 310 mg/dL [address] Comment on above: Result Comment: Glu2 : Fing[place] - [place]illar Performed By: #### E MRAD ####NO LOCATION NEEDED Glucose mass conc 223 mg/dL [address] Comment on above: Result Comment: Glu2 : [place] - [place] Performed By: #### E MRAD ####NO LOCATION NEEDED Glucose mass conc 199 mg/dL [address] Comment on above: Performed By: #### E MRAD ####NO LOCATION NEEDED Glucose mass conc 167 mg/dL [address] Comment on above: Performed By: #### E MRAD ####NO LOCATION NEEDED MAGNESIUMon 04-02-2018 Magnesium mass conc 1.88 mg/dL Normal 1.60 - 2.40 [facility] Comment on above: Performed By: #### E MRAD ####NO LOCATION NEEDED RENAL FUNCTION PANELon 04-02 Albumin mass conc 3.5 g/dL Normal 3.4 - 5.0 [facility] Comment on above: Performed By: #### E MRAD ####NO LOCATION NEEDED Anion gap 3 molar conc 13 mmol/L Normal 10 - 20 [facility] Comment on above: Performed By: #### E MRAD ####NO LOCATION NEEDED Calcium mass conc 8.5 mg/dL Low 8.6 - 10.6 [facility] Comment on above: Performed By: #### E MRAD ####NO LOCATION NEEDED Chloride molar conc 97 mmol/L Low 98 - 107 [facility] Comment on above: Performed By: #### E MRAD ####NO LOCATION NEEDED Creatinine mass conc 1.21 mg/dL Normal 0.50 - 1.30 [facility] Comment on above: Performed By: #### E MRAD ####NO LOCATION NEEDED GFR- AM. 73 mL/min/1.73m2 Normal >60 [facility] Comment on above: Result Comment: CALC ULATIONS OF ESTIMATED GFR ARE PERFORMED USING THE MDRD STUDY EQUATION FOR THE IDMS-TRACEABLE CREATININE METHODS. CLIN CHEM 2007;53:766-72 Performed By: #### E MRAD ####NO LOCATION NEEDED GFR-NON AM. 60 mL/min/1.73m2 Abnormal >60 [facility] Comment on above: Performed By: #### E MRAD ####NO LOCATION NEEDED Glucose mass conc 182 mg/dL High 74 - 99 [facility] Comment on above: Performed By: #### E MRAD ####NO LOCATION NEEDED HCO3 molar conc (Bld) 27 mmol/L Normal 21 - 32 [facility] Comment on above: Performed By: #### E MRAD ####NO LOCATION NEEDED Phosphate mass conc 3.6 mg/dL Normal 2.5 - 4.9 [facility] Comment on above: Result Comment: The performance characteristics of phosphorus testing in heparinized plasma have been validated by the individual laboratory site where testing is performed. Testing on heparinized plasma is not approved by the FDA; however, such approval is not necessary. Performed By: #### E MRAD ####NO LOCATION NEEDED Potassium molar conc 4.1 mmol/L Normal 3.5 - 5.3 [facility] Comment on above: Performed By: #### E MRAD ####NO LOCATION NEEDED Sodium molar conc 133 mmol/L Low 136 - 145 [facility] Comment on above: Performed By: #### E MRAD ####NO LOCATION NEEDED Urea nitrogen mass conc 21 mg/dL Normal 6 - 23 [facility] Comment on above: Performed By: #### E MRAD ####NO LOCATION NEEDED TH CHEST 1 VIEWon 04-02-2018 TH CHEST 1 VIEW Name: DON ELKINS STUDY:TH CHEST 1 VIEW; 04/02/2018 4:03 am INDICATION:Signs/Symptoms: AM rounds. COMPARISON:Chest radiograph from 04/01/2018 ORDERING CLINICIAN:TESSIE BYRD FINDINGS:Interval extubation and removal of enteric tube. Right IJ Flushing-Ganzcatheter has also been removed. There has also [...] Electronically signed by: STANISLAV RADFORD MD Normal [facility] ARTERIAL FULL PANELon 2017 Anion gap 3 molar conc 10 mmol/L Normal 10 - 25 [facility] Comment on above: Performed By: #### E MRAD ####NO LOCATION NEEDED BASE EXCESS-BLOOD 1.9 mmol/L Normal -2.0 - 3.0 [facility] Comment on above: Performed By: #### E MRAD ####NO LOCATION NEEDED CALCIUM,IONIZED 1.12 mmol/L Normal 1.10 - 1.33 [facility] Comment on above: Performed By: #### E MRAD ####NO LOCATION NEEDED Chloride molar conc 100 mmol/L Normal 98 - 107 [facility] Comment on above: Performed By: #### E MRAD ####NO LOCATION NEEDED Glucose mass conc 151 mg/dL High 74 - 99 [facility] Comment on above: Performed By: #### E MRAD ####NO LOCATION NEEDED Hematocrit Auto Volume Fraction (Bld) 30.0 % Low 41.0 - 52.0 [facility] Comment on above: Performed By: #### E MRAD ####NO LOCATION NEEDED HGB,CALCULATED 10.2 g/dL Low 13.5 - 17.5 [facility] Comment on above: Performed By: #### E MRAD ####NO LOCATION NEEDED Lactate molar conc 2.3 mmol/L High 0.4 - 2.0 [facility] Comment on above: Performed By: #### E MRAD ####NO LOCATION NEEDED Oxygen ppres (BldA) 82 mm[Hg] Low 85 - 95 [facility] Comment on above: Performed By: #### E MRAD ####NO LOCATION NEEDED PCO2 41 mmHg Normal 38 - 42 [facility] Comment on above: Performed By: #### E MRAD ####NO LOCATION NEEDED pH (Bld) 7.42 [pH] Normal 7.38 - 7.42 [facility] Comment on above: Performed By: #### E MRAD ####NO LOCATION NEEDED Potassium molar conc 4.1 mmol/L Normal 3.5 - 5.3 [facility] Comment on above: Performed By: #### E MRAD ####NO LOCATION NEEDED RBC Auto #/vol (Bld) 26.6 mmol/L High 22.0 - 26.0 [facility] Comment on above: Performed By: #### E MRAD ####NO LOCATION NEEDED SO2 98 % Normal 94 - 100 [facility] Comment on above: Performed By: #### E MRAD ####NO LOCATION NEEDED Sodium molar conc 132 mmol/L Low 136 - 145 [facility] Comment on above: Performed By: #### E MRAD ####NO LOCATION NEEDED Anion gap 3 molar conc 8 mmol/L Low 10 - 25 [facility] Comment on above: Performed By: #### E MRAD ####NO LOCATION NEEDED BASE EXCESS-BLOOD 3.0 mmol/L Normal -2.0 - 3.0 [facility] Comment on above: Performed By: #### E MRAD ####NO LOCATION NEEDED CALCIUM,IONIZED 1.17 mmol/L Normal 1.10 - 1.33 [facility] Comment on above: Performed By: #### E MRAD ####NO LOCATION NEEDED Chloride molar conc 101 mmol/L Normal 98 - 107 [facility] Comment on above: Performed By: #### E MRAD ####NO LOCATION NEEDED Glucose mass conc 164 mg/dL High 74 - 99 [facility] Comment on above: Performed By: #### E MRAD ####NO LOCATION NEEDED Hematocrit Auto Volume Fraction (Bld) 29.0 % Low 41.0 - 52.0 [facility] Comment on above: Performed By: #### E MRAD ####NO LOCATION NEEDED HGB,CALCULATED 9.9 g/dL Low 13.5 - 17.5 [facility] Comment on above: Performed By: #### E MRAD ####NO LOCATION NEEDED Lactate molar conc 2.2 mmol/L High 0.4 - 2.0 [facility] Comment on above: Performed By: #### E MRAD ####NO LOCATION NEEDED Oxygen ppres (BldA) 75 mm[Hg] Low 85 - 95 [facility] Comment on above: Performed By: #### E MRAD ####NO LOCATION NEEDED PCO2 43 mmHg High 38 - 42 [facility] Comment on above: Performed By: #### E MRAD ####NO LOCATION NEEDED pH (Bld) 7.42 [pH] Normal 7.38 - 7.42 [facility] Comment on above: Performed By: #### E MRAD ####NO LOCATION NEEDED Potassium molar conc 4.3 mmol/L Normal 3.5 - 5.3 [facility] Comment on above: Performed By: #### E MRAD ####NO LOCATION NEEDED RBC Auto #/vol (Bld) 27.9 mmol/L High 22.0 - 26.0 [facility] Comment on above: Performed By: #### E MRAD ####NO LOCATION NEEDED SO2 97 % Normal 94 - 100 [facility] Comment on above: Performed By: #### E MRAD ####NO LOCATION NEEDED Sodium molar conc 133 mmol/L Low 136 - 145 [facility] Comment on above: Performed By: #### E MRAD ####NO LOCATION NEEDED Anion gap 3 molar conc 11 mmol/L Normal 10 - 25 [facility] Comment on above: Performed By: #### E MRAD ####NO LOCATION NEEDED BASE EXCESS-BLOOD 0.9 mmol/L Normal -2.0 - 3.0 [facility] Comment on above: Performed By: #### E MRAD ####NO LOCATION NEEDED CALCIUM,IONIZED 1.16 mmol/L Normal 1.10 - 1.33 [facility] Comment on above: Performed By: #### E MRAD ####NO LOCATION NEEDED Chloride molar conc 101 mmol/L Normal 98 - 107 [facility] Comment on above: Performed By: #### E MRAD ####NO LOCATION NEEDED Glucose mass conc 177 mg/dL High 74 - 99 [facility] Comment on above: Performed By: #### E MRAD ####NO LOCATION NEEDED Hematocrit Auto Volume Fraction (Bld) 31.0 % Low 41.0 - 52.0 [facility] Comment on above: Performed By: #### E MRAD ####NO LOCATION NEEDED HGB,CALCULATED 10.5 g/dL Low 13.5 - 17.5 [facility] Comment on above: Performed By: #### E MRAD ####NO LOCATION NEEDED Lactate molar conc 3.3 mmol/L High 0.4 - 2.0 [facility] Comment on above: Performed By: #### E MRAD ####NO LOCATION NEEDED Oxygen ppres (BldA) 73 mm[Hg] Low 85 - 95 [facility] Comment on above: Performed By: #### E MRAD ####NO LOCATION NEEDED PCO2 38 mmHg Normal 38 - 42 [facility] Comment on above: Performed By: #### E MRAD ####NO LOCATION NEEDED pH (Bld) 7.43 [pH] High 7.38 - 7.42 [facility] Comment on above: Performed By: #### E MRAD ####NO LOCATION NEEDED Potassium molar conc 4.2 mmol/L Normal 3.5 - 5.3 [facility] Comment on above: Performed By: #### E MRAD ####NO LOCATION NEEDED RBC Auto #/vol (Bld) 25.2 mmol/L Normal 22.0 - 26.0 [facility] Comment on above: Performed By: #### E MRAD ####NO LOCATION NEEDED SO2 96 % Normal 94 - 100 [facility] Comment on above: Performed By: #### E MRAD ####NO LOCATION NEEDED Sodium molar conc 133 mmol/L Low 136 - 145 [facility] Comment on above: Performed By: #### E MRAD ####NO LOCATION NEEDED Anion gap 3 molar conc 12 mmol/L Normal 10 - 25 [facility] Comment on above: Performed By: #### E MRAD ####NO LOCATION NEEDED BASE EXCESS-BLOOD 3.5 mmol/L High -2.0 - 3.0 [facility] Comment on above: Performed By: #### E MRAD ####NO LOCATION NEEDED CALCIUM,IONIZED 1.12 mmol/L Normal 1.10 - 1.33 [facility] Comment on above: Performed By: #### E MRAD ####NO LOCATION NEEDED Chloride molar conc 100 mmol/L Normal 98 - 107 [facility] Comment on above: Performed By: #### E MRAD ####NO LOCATION NEEDED Glucose mass conc 177 mg/dL High 74 - 99 [facility] Comment on above: Performed By: #### E MRAD ####NO LOCATION NEEDED Hematocrit Auto Volume Fraction (Bld) 32.0 % Low 41.0 - 52.0 [facility] Comment on above: Performed By: #### E MRAD ####NO LOCATION NEEDED HGB,CALCULATED 10.9 g/dL Low 13.5 - 17.5 [facility] Comment on above: Performed By: #### E MRAD ####NO LOCATION NEEDED Lactate molar conc 2.8 mmol/L High 0.4 - 2.0 [facility] Comment on above: Performed By: #### E MRAD ####NO LOCATION NEEDED Oxygen ppres (BldA) 85 mm[Hg] Normal 85 - 95 [facility] Comment on above: Performed By: #### E MRAD ####NO LOCATION NEEDED PCO2 44 mmHg High 38 - 42 [facility] Comment on above: Performed By: #### E MRAD ####NO LOCATION NEEDED pH (Bld) 7.42 [pH] Normal 7.38 - 7.42 [facility] Comment on above: Performed By: #### E MRAD ####NO LOCATION NEEDED Potassium molar conc 4.6 mmol/L Normal 3.5 - 5.3 [facility] Comment on above: Performed By: #### E MRAD ####NO LOCATION NEEDED RBC Auto #/vol (Bld) 28.5 mmol/L High 22.0 - 26.0 [facility] Comment on above: Performed By: #### E MRAD ####NO LOCATION NEEDED SO2 99 % Normal 94 - 100 [facility] Comment on above: Performed By: #### E MRAD ####NO LOCATION NEEDED Sodium molar conc 136 mmol/L Normal 136 - 145 [facility] Comment on above: Performed By: #### E MRAD ####NO LOCATION NEEDED Anion gap 3 molar conc 9 mmol/L Low 10 - 25 [facility] Comment on above: Performed By: #### E MRAD ####NO LOCATION NEEDED BASE EXCESS-BLOOD 2.4 mmol/L Normal -2.0 - 3.0 [facility] Comment on above: Performed By: #### E MRAD ####NO LOCATION NEEDED CALCIUM,IONIZED 1.10 mmol/L Normal 1.10 - 1.33 [facility] Comment on above: Performed By: #### E MRAD ####NO LOCATION NEEDED Chloride molar conc 102 mmol/L Normal 98 - 107 [facility] Comment on above: Performed By: #### E MRAD ####NO LOCATION NEEDED Glucose mass conc 166 mg/dL High 74 - 99 [facility] Comment on above: Performed By: #### E MRAD ####NO LOCATION NEEDED Hematocrit Auto Volume Fraction (Bld) 29.0 % Low 41.0 - 52.0 [facility] Comment on above: Performed By: #### E MRAD ####NO LOCATION NEEDED HGB,CALCULATED 9.9 g/dL Low 13.5 - 17.5 [facility] Comment on above: Performed By: #### E MRAD ####NO LOCATION NEEDED Lactate molar conc 3.1 mmol/L High 0.4 - 2.0 [facility] Comment on above: Performed By: #### E MRAD ####NO LOCATION NEEDED Oxygen ppres (BldA) 115 mm[Hg] High 85 - 95 [facility] Comment on above: Performed By: #### E MRAD ####NO LOCATION NEEDED PCO2 42 mmHg Normal 38 - 42 [facility] Comment on above: Performed By: #### E MRAD ####NO LOCATION NEEDED pH (Bld) 7.42 [pH] Normal 7.38 - 7.42 [facility] Comment on above: Performed By: #### E MRAD ####NO LOCATION NEEDED Potassium molar conc 4.4 mmol/L Normal 3.5 - 5.3 [facility] Comment on above: Performed By: #### E MRAD ####NO LOCATION NEEDED RBC Auto #/vol (Bld) 27.2 mmol/L High 22.0 - 26.0 [facility] Comment on above: Performed By: #### E MRAD ####NO LOCATION NEEDED SO2 99 % Normal 94 - 100 [facility] Comment on above: Performed By: #### E MRAD ####NO LOCATION NEEDED Sodium molar conc 134 mmol/L Low 136 - 145 [facility] Comment on above: Performed By: #### E MRAD ####NO LOCATION NEEDED Anion gap 3 molar conc 10 mmol/L Normal 10 - 25 [facility] Comment on above: Performed By: #### E MRAD ####NO LOCATION NEEDED BASE EXCESS-BLOOD 1.2 mmol/L Normal -2.0 - 3.0 [facility] Comment on above: Performed By: #### E MRAD ####NO LOCATION NEEDED CALCIUM,IONIZED 1.10 mmol/L Normal 1.10 - 1.33 [facility] Comment on above: Performed By: #### E MRAD ####NO LOCATION NEEDED Chloride molar conc 102 mmol/L Normal 98 - 107 [facility] Comment on above: Performed By: #### E MRAD ####NO LOCATION NEEDED Glucose mass conc 174 mg/dL High 74 - 99 [facility] Comment on above: Performed By: #### E MRAD ####NO LOCATION NEEDED Hematocrit Auto Volume Fraction (Bld) 30.0 % Low 41.0 - 52.0 [facility] Comment on above: Performed By: #### E MRAD ####NO LOCATION NEEDED HGB,CALCULATED 10.2 g/dL Low 13.5 - 17.5 [facility] Comment on above: Performed By: #### E MRAD ####NO LOCATION NEEDED Lactate molar conc 2.8 mmol/L High 0.4 - 2.0 [facility] Comment on above: Performed By: #### E MRAD ####NO LOCATION NEEDED Oxygen ppres (BldA) 133 mm[Hg] High 85 - 95 [facility] Comment on above: Performed By: #### E MRAD ####NO LOCATION NEEDED PCO2 41 mmHg Normal 38 - 42 [facility] Comment on above: Performed By: #### E MRAD ####NO LOCATION NEEDED pH (Bld) 7.41 [pH] Normal 7.38 - 7.42 [facility] Comment on above: Performed By: #### E MRAD ####NO LOCATION NEEDED Potassium molar conc 4.3 mmol/L Normal 3.5 - 5.3 [facility] Comment on above: Performed By: #### E MRAD ####NO LOCATION NEEDED RBC Auto #/vol (Bld) 26.0 mmol/L Normal 22.0 - 26.0 [facility] Comment on above: Performed By: #### E MRAD ####NO LOCATION NEEDED SO2 99 % Normal 94 - 100 [facility] Comment on above: Performed By: #### E MRAD ####NO LOCATION NEEDED Sodium molar conc 134 mmol/L Low 136 - 145 [facility] Comment on above: Performed By: #### E MRAD ####NO LOCATION NEEDED Anion gap 3 molar conc 13 mmol/L Normal 10 - 25 [facility] Comment on above: Performed By: #### E MRAD ####NO LOCATION NEEDED BASE EXCESS-BLOOD -0.2 mmol/L Normal -2.0 - 3.0 [facility] Comment on above: Performed By: #### E MRAD ####NO LOCATION NEEDED CALCIUM,IONIZED 1.09 mmol/L Low 1.10 - 1.33 [facility] Comment on above: Performed By: #### E MRAD ####NO LOCATION NEEDED Chloride molar conc 101 mmol/L Normal 98 - 107 [facility] Comment on above: Performed By: #### E MRAD ####NO LOCATION NEEDED Glucose mass conc 176 mg/dL High 74 - 99 [facility] Comment on above: Performed By: #### E MRAD ####NO LOCATION NEEDED Hematocrit Auto Volume Fraction (Bld) 37.0 % Low 41.0 - 52.0 [facility] Comment on above: Performed By: #### E MRAD ####NO LOCATION NEEDED HGB,CALCULATED 12.6 g/dL Low 13.5 - 17.5 [facility] Comment on above: Performed By: #### E MRAD ####NO LOCATION NEEDED Lactate molar conc 2.6 mmol/L High 0.4 - 2.0 [facility] Comment on above: Performed By: #### E MRAD ####NO LOCATION NEEDED Oxygen ppres (BldA) 91 mm[Hg] Normal 85 - 95 [facility] Comment on above: Performed By: #### E MRAD ####NO LOCATION NEEDED PCO2 41 mmHg Normal 38 - 42 [facility] Comment on above: Performed By: #### E MRAD ####NO LOCATION NEEDED pH (Bld) 7.39 [pH] Normal 7.38 - 7.42 [facility] Comment on above: Performed By: #### E MRAD ####NO LOCATION NEEDED Potassium molar conc 4.5 mmol/L Normal 3.5 - 5.3 [facility] Comment on above: Performed By: #### E MRAD ####NO LOCATION NEEDED RBC Auto #/vol (Bld) 24.8 mmol/L Normal 22.0 - 26.0 [facility] Comment on above: Performed By: #### E MRAD ####NO LOCATION NEEDED SO2 98 % Normal 94 - 100 [facility] Comment on above: Performed By: #### E MRAD ####NO LOCATION NEEDED Sodium molar conc 134 mmol/L Low 136 - 145 [facility] Comment on above: Performed By: #### E MRAD ####NO LOCATION NEEDED CALCIUM, IONIZEDon 8 CALCIUM,IONIZED 1.04 mmol/L Low 1.10 - 1.33 [facility] Comment on above: Result Comment: The performance [...] (RBC) 13.2 % Normal 11.5 - 14.5 [facility] Comment on above: Performed By: #### E MRAD ####NO LOCATION NEEDED Hematocrit Auto Volume Fraction (Bld) 29.9 % Low 41.0 - 52.0 [facility] Comment on above: Performed By: #### E MRAD ####NO LOCATION NEEDED Hemoglobin mass conc (Bld) 10.0 g/dL Low 13.5 - 17.5 [facility] Comment on above: Performed By: #### E MRAD ####NO LOCATION NEEDED MCHC Auto mass conc (RBC) 33.4 g/dL Normal 32.0 - 36.0 [facility] Comment on above: Performed By: #### E MRAD ####NO LOCATION NEEDED MCV Auto Entitic volume (RBC) 93 fL Normal 80 - 100 [facility] Comment on above: Performed By: #### E MRAD ####NO LOCATION NEEDED Nucleated RBC/100 WBC Ratio (Bld) 0.0 /100 WBC Normal 0.0-0.0 [facility] Comment on above: Performed By: #### E MRAD ####NO LOCATION NEEDED Platelets Auto #/vol (Bld) 144 10*3/uL Low 150 - 450 [facility] Comment on above: Performed By: #### E MRAD ####NO LOCATION NEEDED RBC Auto #/vol (Bld) 3.23 x10E12/L Low 4.50 - 5.90 [facility] Comment on above: Performed By: #### E MRAD ####NO LOCATION NEEDED WBC Auto #/vol (Bld) 11.4 10*3/uL High 4.4 - 11.3 [facility] Comment on above: Performed By: #### E MRAD ####NO LOCATION NEEDED Erythrocyte distribution width Auto Ratio (RBC) 13.1 % Normal 11.5 - 14.5 [facility] Comment on above: Performed By: #### E MRAD ####NO LOCATION NEEDED Hematocrit Auto Volume Fraction (Bld) 32.1 % Low 41.0 - 52.0 [facility] Comment on above: Performed By: #### E MRAD ####NO LOCATION NEEDED Hemoglobin mass conc (Bld) 10.9 g/dL Low 13.5 - 17.5 [facility] Comment on above: Performed By: #### E MRAD ####NO LOCATION NEEDED MCHC Auto mass conc (RBC) 34.0 g/dL Normal 32.0 - 36.0 [facility] Comment on above: Performed By: #### E MRAD ####NO LOCATION NEEDED MCV Auto Entitic volume (RBC) 92 fL Normal 80 - 100 [facility] Comment on above: Performed By: #### E MRAD ####NO LOCATION NEEDED Nucleated RBC/100 WBC Ratio (Bld) 0.0 /100 WBC Normal 0.0-0.0 [facility] Comment on above: Performed By: #### E MRAD ####NO LOCATION NEEDED Platelets Auto #/vol (Bld) 158 10*3/uL Normal 150 - 450 [facility] Comment on above: Performed By: #### E MRAD ####NO LOCATION NEEDED RBC Auto #/vol (Bld) 3.50 x10E12/L Low 4.50 - 5.90 [facility] Comment on above: Performed By: #### E MRAD ####NO LOCATION NEEDED WBC Auto #/vol (Bld) 9.7 10*3/uL Normal 4.4 - 11.3 [facility] Comment on above: Performed By: #### E MRAD ####NO LOCATION NEEDED COAGULATION SCREENon 018 aPTT Coag time (Bld) 25 s Low 28 - 38 [facility] Comment on above: Result Comment: Note new reference range as of 03/10/2018. THE APTT IS NO LONGER USED FOR MONITORING UNFRACTIONATED HEPARIN THERAPY. FOR MONITORING HEPARIN THERAPY, USE THE HEPARIN ASSAY. Performed By: #### E MRAD ####NO LOCATION NEEDED INR Coag RelTime (PPP) 1.3 {INR} High 0.9 - 1.1 [facility] Comment on above: Performed By: #### E MRAD ####NO LOCATION NEEDED Prothrombin time (PT) Coag time (PPP) 14.0 s High 9.7 - 12.7 [facility] Comment on above: Result Comment: Note new reference range as of 03/10/2018. Performed By: #### E MRAD ####NO LOCATION NEEDED CORTISOL, P.M.on 04-01-2018 CORTISOL, P.M. 22.4 ug/dL High 2.5 - 10.0 [facility] Comment on above: Performed By: #### E MRAD ####NO LOCATION NEEDED CORTISOL, P.M. 34.8 ug/dL High 2.5 - 10.0 [facility] Comment on above: Performed By: #### E MRAD ####NO LOCATION NEEDED Daily Progress Note - Critic al Care-SICmary Ramirez 04-01-2018 Protein mass conc Service:Critical Car e Service: ServiceSICU purple Subjective Data:ID Statement:DON ELKINS is a 67 [...] is well controlled. Objective Data: Objective InformationT [id number]/5997 %Date/Time04/01 4: 6: 6: 14: 6:00Range(36.5C - [...] sec/cm-5)70(68 - 74)03/31 19:00 Direct Arterial Blood YldpydtxXzblqazm030(129 - 161)04/01 6:45Diastolic (mm Hg)67(53 - 70)04/01 6:45Mean (mm Hg)91(76 - 96)04/01 6:45Pulse Pressure (mm Hg)85(71 - 96)04/01 6:36Ucykorzb742(129 - 161)04/01 6:45Diastolic (mm Hg)67(53 - 70)04/01 6:45Mean (mm Hg)91(76 - 96)04/01 6:45Pulse Pressure (mm Hg)85(71 - 96)04/01 6:45 VNFRqzjmsax08(27 - 39)04/01 6:00Diastolic (mm Hg)12(10 - 22)04/01 6:00Mean (mm Hg)18(18 - 29)04/01 6:00 ---- Intake and Output -----Mn/Dy/Year TimeIntakeOutputNetNov 2017 6:00 [id number] 2017 10:00 [id number] 2017 2:00 pm000 The Intake and Output Totals for the last 24 hours are:[id number] Drain and tube details (included in I&O [...] Canceled Recent Arterial Blood Gas Results 04/01/2018 04:51tY051 24 h range: ( 63 - 392 )pH7.42 24 h range: ( 7.28 - 7.42 )hDY624 24 h range: ( 38 - 51 )SO299 24 h range: ( 91 - 100 )Base Excess3.5 24 h range: ( -4.5 - 3.5 )Cfabzjhdlst80.5 24 h range: ( 22 - 28.5 [...] history of CAD, HTN, HLD, DM2, Gerd, Ontario's, andhypothyroid presents from the OR s/p CABG [...] - dcLeft Filiberto Richey Dispo: Continue SICU care.#[id number] Code Status: Code StatusFull Code SCIP:Urinary Catheter Removed Post-Op Day 2: noReason Patient Needs Her: Strict I&0Patient on Beta Danica Prior to Admission: noProphylactic antibiotics scheduled to be discontinued with 24 hr of anesthesiaend time (48 hr for cardiac surgery): yesType of VTE Prophylaxis Ordered: Subcutaneous heparin and SCDs Signature/Cosignature/Attestat ion:Comments/ Additional Vhvurwdf79k/o male s/p CABG x3 with Dr Gaston. [...] and planabove for greater detail. Electronic Signatures:Abelino Klein) (Signed 01-Apr-2018 11:25)Authored: Signature/Cosignature/Attestat Cristiano Shultz ( (Resident)) (Signed 01-Apr-2018 11:56)Authored: Service, Subjective Data, Objective Data, Assessment and Plan Last Updated: 01-Apr-2018 11:56 by Cristiano Wynne (Resident)) Normal [facility] Daily Progress Note-Endocrin ologyon 04-01-2018 Protein mass [...] Intake and Output -----Mn/Dy/Year TimeIntakeOutputNetNov 2017 6:00 [id number] 2017 10:00 [id number] 2017 2:00 pm000 The Intake and Output Totals for the last 24 hours are:[id number] Physical Exam: Constitutional: Well developed, awake/alert/oriented x3, no distress, alert andcooperativeGastrointestinal : Nondistended, soft, non-tender, no rebound tenderness orguarding, no masses palpable, no organomegaly, +BS, no bruitsSkin: Warm and dry, no lesions, no rashes Assessment and Plan:Assessment: Mr. Elkins is a 67 yo WM with no known history of CAD, who has a past medicalhistory of HTN, HLD, T2DM, [place]'s disease, hypothyroidism, COPD, AKASH onCPAP, prostate ca s/p prostatectomy in 2011, and psoriasis who [facility], INCI service at [facility] from [facility] on 03/18 forCA eval.Endocrine consulted fr evaluation of Ontario disease and treatment periop Patient was on supra-therapeutic dose of HCT 20-0-20 , fludrocortisone 0.1 ,mgdailyPatient has uncontrolled HTN and uncontrolled BSIVC filter placed on 03/23 1. [place]'s Disease-- Fludrocortisone 0.05 mg 4 times weekly [...] drawing blood at 9 pm--Will follow 2. H4XL--QYkxlb Glargine today as : 20 units QHS and L6 TIDAC-Please change ISS correction to 2 units per 50 >150--Will follow Please page with questions [phone] Patient seen and examined, plan discussed with [...] patient (as noted in the above attestation) [id number] Electronic Signatures:Starr Quevedo) (Signed 02-Apr-2018 10:02)Authored: Signature/Cosignature/Attestat ionCo-Signer: Service, Subjective Data, Objective Data, Assessment and Plan,Signature/Cosignature/Att estationHasmukh Stephenson (Resident)) (Signed 01-Apr-2018 15:26)Authored: Service, Subjective Data, Objective Data, Assessment and Plan,Signature/Cosignature/Att estation Last Updated: 02-Apr-2018 10:02 by Starr Quevedo) Normal [facility] Discharge Kqsivbu9db 11-14-2 018 Protein mass conc Discharge Orders:Ant icipated Discharge Date: Anticipated Discharge [id number] Problem List: Prelim Disch Dx: History of [place]'s disease: Catalog Name: Personal history of otherendocrine, nutritional and metabolic disease Pulmonary embolism, bilateral: Catalog Name: Other pulmonary embolismwithout acute cor pulmonale S/P IVC filter: Onset Date: 23-Mar-2018, Catalog Name: Presence of othervascular implants and grafts, Description: by Severiano Stapleton at [facility] S/P CABG x 3: Onset Date: 31-Mar-2018, Catalog Name: Presence ofaortocoronary bypass graft, Description: by Jc Gaston at [facility] CAD (coronary artery disease): Catalog Name: Atherosclerotic heart diseaseof rincon coronary artery without angina pectoris Significant Events:Surgical [...] have your follow up visit with your waiter/waitress bar. They will clear youto exercise and further refer you to an outpatient cardiac rehab facility. Labs 1: Lab Test(s)Basic Metabolic Panel, CBC, Magnesium Date To Be DrawnOnce the week following discharge by home care Call Results ToDr. Sal Sabillon and Dr. Levi Pisano CommentsINRs to be done by [facility] coumadin clinic Oxygen:Other Instructions Incentive spirometer 10x/hr [...] obtained from the Primary Care Physician or Veterinary Surgery Technician. - For chest tightness or pain, extreme [...] and symptoms of Heart Failure: call your Veterinary Surgery Technician if you haveweight gain of 3 pounds or more in less than 3 days; shortness of breath atrest, with activity, or when lying flat; dizziness or fainting. Notify Cardiac Surgeon's office of any readmission to the hospital beforefollow-up appointment with Cardiac Surgeon. Diet: DietAdult Diabetic, Cardiac Hospital Course (Home Care/Gold Form):Hospital Course: Hospital Course: include significant abnormal lab sljlyx49 yo WM with no prior history of CAD, who has a past medical history of HTN,HLD, T2DM, [place]'s disease, hypothyroidism, COPD, AKASH on CPAP, prostate Spring/p prostatectomy in 2011, and psoriasis [facility] on [facility]/18 for CABG eval. Ptpresented to [facility] with chest pressure and dyspnea. He as found to havebilat PEs, was started on Heparin gtt, and transferred to [facility]. He wasfound to have a troponin leak at 2.25. Cardiology was consulted and the patientwas diagnosed with ACS, NSTEMI. He underwent a TTE and cath. He had normal EF,mild AI, and triple vessel CAD so was transferred to [facility] for CABG eval.Pulm consulted for PE workup. Pt required unfractionated heparin infusion for7-10 days to take advantage of intrinsic fibrinolysis and clot stabilization,as well as an IVC filter.Endocrine consulted for evaluation of [place] disease and treatment periop.Also managed DM. 03/23/2018 [...] post op volume overload with Lasix; preop .8 kg; day of discharge wt 107.5 kg- IVC filter was placed on 03/23 preop, will be following up with vascular forretrieval- heparin gtt bridge to coumadin was started per Dr. Gaston for unprovoked PEs asper Pulmonary recs; needs at least 6 months of anticoagulation; planningFirhemets coumadin clinic under Dr Pisano- PT recs home with PT- anticipate discharge home with home service director and PT- special educator met with patient 04/07 to discuss discharge instructionsand care- patient had no complaints at discharge and all questions were answered _ HISTORYPMH: HTN, HLD, T2DM, [place]'s disease, hypothyroidism, COPD, AKASH on CPAP,prostate ca s/p prostatectomy in 2011, psoriasis, remote hepatitis B, priorGERD, lumbar Degenerative disk disease, arthritis, kidney stones (current,small), cataract, plantar fasciitis PSH: prostatectomy 2011, R cataract surgery, cholecystectomy, appendectomy,sinus surgery, vasectomy, bilat carpal tunnel release surgery, ganglion cystremoval from hands, cystoscopy 2 weeks ago for microscopic hematuria, rootcanal 2 weeks ago. 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 [...] Care Agency: [facility] Ordered: RN/DENTAL SURGEON, PTFace to Face Encounter Completed: yesDate of Encounter: [id number] Necessity for Homecare (based on clinical findings):Short-term care home is needed to monitor for signs and [...] to determine Wound Care: [facility] FINAL REVIEW of Orders:Final Review: Final Review of Medication Reconciliation and Orders Yangby ROSA Reviewing ProviderTaylZACK López at 07-Apr-2018 14:22:59 Name/Contact Info for Questions About Discharge OrdersDr Gaston'sophie [phone] Appointments:Coumadin (Warfarin) Follow-Up Monitoring: [facility] Date/Time next PT/INR [id number] 13:45 Phone [phone]; [address] [facility] [address] Please bring insurancecard, drivers license, and medication list CommentsPlease arrive at 1:45 PM for your appt. goal INR 2-3; need at least6 months of coumadin for PE; Dr Pisano is managing Follow-Up Appointment 01: Physician/Dept/Evgeny Gaston - cardiac surgeon Scheduled Date/[id number] 14:[address] [address] - 2pm appointment [facility] [address], [address] Phone NumberDr Sy's office [phone] Follow-Up Appointment 02: Physician/Dept/Trell. Sal Sabillon PCP Scheduled Date/[id number] 11:[id number], [place]. [address] Phone [phone] CommentsPlease arrive 10-15 minutes early, bring photo ID, insurance card,discharge summary, and list of current medications and dosages. If unable tokeep this appointment, please call to cancel. Follow-Up Appointment 03: Physician/Dept/ServiceDr. Levi Pisano, Cardiology Scheduled Date/[id number] 14:[address] [place] [address], [facility] [address], [place]. [address] [phone] Phone [phone] CommentsPlease arrive 10-15 minutes early, bring photo ID, insurance card,discharge summary, and list of current medications and dosages. If unable tokeep this appointment, please call to cancel. Follow-Up Appointment 04: Physician/Dept/MadayDr. Xavier Lake, Endocrinology Scheduled Date/[id number] 09:40 [id number], [place]. [address] Phone [phone] CommentsPlease arrive 10-15 minutes early, bring photo ID, insurance card,discharge summary, and list of current medications and dosages. If unable tokeep this appointment, please call to cancel. Follow-Up Appointment 05: Physician/Dept/ServiceDr. Severiano Stapleton, Vascular Surgery Scheduled Date/[id number] 15:[address] [address] Phone [phone] CommentsPlease arrive 10-15 minutes early, bring photo ID, insurance card,discharge summary, and list of current medications and dosages. If unable tokeep this appointment, please call to cancel. Electronic Signatures:Mary Munroe (LOCKSTITCH BINDER-BUTTERMILK DRIER OPERATOR) (Signed 06-Apr-2018 18:53)Authored: Discharge Orders, CABG / Valve, Hospital Course (Home Care/GoldForm), Home Care Orders, Provider FINAL REVIEW of Orders, AppointmentsLillie Elder (CLIN COOR) (Signed 01-Apr-2018 14:23)Authored: Discharge Orders, Gold Form - Education Administrative Assistant SummaryKarolina Foster (RN) (Signed 02-Apr-2018 13:41)Authored: Discharge OrdersMonet Alcaraz (PT SVS REP) (Signed 07-Apr-2018 14:04)Authored: Alexandra Correa (PAC) (Signed 07-Apr-2018 14:22)Authored: Discharge Orders, CABG / Valve, Hospital Course (Home Care/GoldForm), Home Care Orders, Provider FINAL REVIEW of Orders, Appointments Last Updated: 07-Apr-2018 14:22 by Alexandra Milligan (PAC) Normal [facility] GLUCOSE-POCTon 04-01-2018 Glucose mass conc 174 mg/dL High 74 - 99 [facility] Comment on above: Performed By: #### E MRAD ####NO LOCATION NEEDED Glucose mass conc 152 mg/dL High 74 - 99 [facility] Comment on above: Result Comment: Glu2 : Fingertip - Capillar Performed By: #### E MRAD ####NO LOCATION NEEDED Glucose mass conc 181 mg/dL High 74 - 99 [facility] Comment on above: Result Comment: Glu2 : Fingertip - Capillar Performed By: #### E MRAD ####NO LOCATION NEEDED Glucose mass conc 228 mg/dL High 74 - 99 [facility] Comment on above: Result Comment: Glu2 : Fingertip - Capillar Performed By: #### E MRAD ####NO LOCATION NEEDED Glucose mass conc 168 mg/dL High 74 - 99 [facility] Comment on above: Performed By: #### E MRAD ####NO LOCATION NEEDED Glucose mass conc 175 mg/dL High 74 - 99 [facility] Comment on above: Performed By: #### E MRAD ####NO LOCATION NEEDED Glucose mass conc 197 mg/dL High 74 - 99 [facility] Comment on above: Performed By: #### E MRAD ####NO LOCATION NEEDED MAGNESIUMon 04-01-2018 Magnesium mass conc 2.15 mg/dL Normal 1.60 - 2.40 [facility] Comment on above: Performed By: #### E MRAD ####NO LOCATION NEEDED Magnesium mass conc 2.30 mg/dL Normal 1.60 - 2.40 [facility] Comment on above: Performed By: #### E MRAD ####NO LOCATION NEEDED RENAL FUNCTION PANELon 04-01 Albumin mass conc 3.7 g/dL Normal 3.4 - 5.0 [facility] Comment on above: Performed By: #### E MRAD ####NO LOCATION NEEDED Anion gap 3 molar conc 11 mmol/L Normal 10 - 20 [facility] Comment on above: Performed By: #### E MRAD ####NO LOCATION NEEDED Calcium mass conc 8.8 mg/dL Normal 8.6 - 10.6 [facility] Comment on above: Performed By: #### E MRAD ####NO LOCATION NEEDED Chloride molar conc 99 mmol/L Normal 98 - 107 [facility] Comment on above: Performed By: #### E MRAD ####NO LOCATION NEEDED Creatinine mass conc 1.35 mg/dL High 0.50 - 1.30 [facility] Comment on above: Performed By: #### E MRAD ####NO LOCATION NEEDED GFR- AM. 64 mL/min/1.73m2 Normal >60 [facility] Comment on above: Result Comment: CALC ULATIONS OF ESTIMATED GFR ARE PERFORMED USING THE MDRD STUDY EQUATION FOR THE IDMS-TRACEABLE CREATININE METHODS. CLIN CHEM 2007;53:766-72 Performed By: #### E MRAD ####NO LOCATION NEEDED GFR-NON AM. 53 mL/min/1.73m2 Abnormal >60 [facility] Comment on above: Performed By: #### E MRAD ####NO LOCATION NEEDED Glucose mass conc 169 mg/dL High 74 - 99 [facility] Comment on above: Performed By: #### E MRAD ####NO LOCATION NEEDED HCO3 molar conc (Bld) 28 mmol/L Normal 21 - 32 [facility] Comment on above: Performed By: #### E MRAD ####NO LOCATION NEEDED Phosphate mass conc 3.3 mg/dL Normal 2.5 - 4.9 [facility] Comment on above: Result Comment: The performance characteristics of phosphorus testing in heparinized plasma have been validated by the individual laboratory site where testing is performed. Testing on heparinized plasma is not approved by the FDA; however, such approval is not necessary. Performed By: #### E MRAD ####NO LOCATION NEEDED Potassium molar conc 4.2 mmol/L Normal 3.5 - 5.3 [facility] Comment on above: Performed By: #### E MRAD ####NO LOCATION NEEDED Sodium molar conc 134 mmol/L Low 136 - 145 [facility] Comment on above: Performed By: #### E MRAD ####NO LOCATION NEEDED Urea nitrogen mass conc 20 mg/dL Normal 6 - 23 [facility] Comment on above: Performed By: #### E MRAD ####NO LOCATION NEEDED Albumin mass conc Canceled Normal [facility] Comment on above: Order Comment: TEST RENAL FUNCTION PANEL WAS CANCELLED, 04/01/2018 07:29 DUPLICATE ORDER. Performed By: #### E MRAD ####NO LOCATION NEEDED Anion gap 3 molar conc Canceled Normal [facility] Comment on above: Order Comment: TEST RENAL FUNCTION PANEL WAS CANCELLED, 04/01/2018 07:29 DUPLICATE ORDER. Performed By: #### E MRAD ####NO LOCATION NEEDED Calcium mass conc Canceled Normal [facility] Comment on above: Order Comment: TEST RENAL FUNCTION PANEL WAS CANCELLED, 04/01/2018 07:29 DUPLICATE ORDER. Performed By: #### E MRAD ####NO LOCATION NEEDED Chloride molar conc Canceled Normal [facility] Comment on above: Order Comment: TEST RENAL FUNCTION PANEL WAS CANCELLED, 04/01/2018 07:29 DUPLICATE ORDER. Performed By: #### E MRAD ####NO LOCATION NEEDED Creatinine mass conc Canceled Normal [facility] Comment on above: Order Comment: TEST RENAL FUNCTION PANEL WAS CANCELLED, 04/01/2018 07:29 DUPLICATE ORDER. Performed By: #### E MRAD ####NO LOCATION NEEDED GFR- AM. Canceled Normal [facility] Comment on above: Order Comment: TEST RENAL FUNCTION PANEL WAS CANCELLED, 04/01/2018 07:29 DUPLICATE ORDER. Result Comment: CALC ULATIONS OF ESTIMATED GFR ARE PERFORMED USING THE MDRD STUDY EQUATION FOR THE IDMS-TRACEABLE CREATININE METHODS. CLIN CHEM 2007;53:766-72 Performed By: #### E MRAD ####NO LOCATION NEEDED GFR-NON AM. Canceled Normal [facility] Comment on above: Order Comment: TEST RENAL FUNCTION PANEL WAS CANCELLED, 04/01/2018 07:29 DUPLICATE ORDER. Performed By: #### E MRAD ####NO LOCATION NEEDED Glucose mass conc Canceled Normal [facility] Comment on above: Order Comment: TEST RENAL FUNCTION PANEL WAS CANCELLED, 04/01/2018 07:29 DUPLICATE ORDER. Performed By: #### E MRAD ####NO LOCATION NEEDED HCO3 molar conc (Bld) Canceled Normal [facility] Comment on above: Order Comment: TEST RENAL FUNCTION PANEL WAS CANCELLED, 04/01/2018 07:29 DUPLICATE ORDER. Performed By: #### E MRAD ####NO LOCATION NEEDED Phosphate mass conc Canceled Normal [facility] Comment on above: Order Comment: TEST RENAL [...] LOCATION NEEDED Potassium molar conc Canceled Normal [facility] Comment on above: Order Comment: TEST RENAL FUNCTION PANEL WAS CANCELLED, 04/01/2018 07:29 DUPLICATE ORDER. Performed By: #### E MRAD ####NO LOCATION NEEDED Sodium molar conc Canceled Normal [facility] Comment on above: Order Comment: TEST RENAL FUNCTION PANEL WAS CANCELLED, 04/01/2018 07:29 DUPLICATE ORDER. Performed By: #### E MRAD ####NO LOCATION NEEDED Urea nitrogen mass conc Canceled Normal [facility] Comment on above: Order Comment: TEST RENAL FUNCTION PANEL WAS CANCELLED, 04/01/2018 07:29 DUPLICATE ORDER. Performed By: #### E MRAD ####NO LOCATION NEEDED Albumin mass conc 3.7 g/dL Normal 3.4 - 5.0 [facility] Comment on above: Performed By: #### E MRAD ####NO LOCATION NEEDED Anion gap 3 molar conc 15 mmol/L Normal 10 - 20 [facility] Comment on above: Performed By: #### E MRAD ####NO LOCATION NEEDED Calcium mass conc 8.7 mg/dL Normal 8.6 - 10.6 [facility] Comment on above: Performed By: #### E MRAD ####NO LOCATION NEEDED Chloride molar conc 100 mmol/L Normal 98 - 107 [facility] Comment on above: Performed By: #### E MRAD ####NO LOCATION NEEDED Creatinine mass conc 1.30 mg/dL Normal 0.50 - 1.30 [facility] Comment on above: Performed By: #### E MRAD ####NO LOCATION NEEDED GFR- AM. 67 mL/min/1.73m2 Normal >60 [facility] Comment on above: Result Comment: CALC ULATIONS OF ESTIMATED GFR ARE PERFORMED USING THE MDRD STUDY EQUATION FOR THE IDMS-TRACEABLE CREATININE METHODS. CLIN CHEM 2007;53:766-72 Performed By: #### E MRAD ####NO LOCATION NEEDED GFR-NON AM. 55 mL/min/1.73m2 Abnormal >60 [facility] Comment on above: Performed By: #### E MRAD ####NO LOCATION NEEDED Glucose mass conc 167 mg/dL High 74 - 99 [facility] Comment on above: Performed By: #### E MRAD ####NO LOCATION NEEDED HCO3 molar conc (Bld) 26 mmol/L Normal 21 - 32 [facility] Comment on above: Performed By: #### E MRAD ####NO LOCATION NEEDED Phosphate mass conc 4.0 mg/dL Normal 2.5 - 4.9 [facility] Comment on above: Result Comment: The performance characteristics of phosphorus testing in heparinized plasma have been validated by the individual laboratory site where testing is performed. Testing on heparinized plasma is not approved by the FDA; however, such approval is not necessary. Performed By: #### E MRAD ####NO LOCATION NEEDED Potassium molar conc 4.4 mmol/L Normal 3.5 - 5.3 [facility] Comment on above: Performed By: #### E MRAD ####NO LOCATION NEEDED Sodium molar conc 137 mmol/L Normal 136 - 145 [facility] Comment on above: Performed By: #### E MRAD ####NO LOCATION NEEDED Urea nitrogen mass conc 20 mg/dL Normal 6 - 23 [facility] Comment on above: Performed By: #### E MRAD ####NO LOCATION NEEDED TH CHEST 1 VIEWon 04-01-2018 TH CHEST 1 VIEW Name: DON ELKINS STUDY:TH CHEST 1 VIEW; 04/01/2018 3:56 am INDICATION:Signs/Symptoms: CT surgey. COMPARISON:03/31/2018 ORDERING CLINICIAN:GERMAN JACK FINDINGS:ET tube is terminating at the level of clavicle heads. Enteric tubeis in place with the tip not included. Right IJ Flushing-Jose catheter isterminating in the right main pulmonary [...] Electronically signed by: EDYTA ARIAS MD Normal [facility] ACT-HIGH RANGEon 03-31-2018 ACT-HIGH RANGE 111 SECONDS Normal 91 - 152 [facility] Comment on above: Performed By: #### E MRAD ####NO LOCATION NEEDED ACT-HIGH RANGE 456 SECONDS High 91 - 152 [facility] Comment on above: Performed By: #### E MRAD ####NO LOCATION NEEDED ACT-HIGH RANGE 415 SECONDS High 91 - 152 [facility] Comment on above: Performed By: #### E MRAD ####NO LOCATION NEEDED ACT-HIGH RANGE 555 SECONDS High 91 - 152 [facility] Comment on above: Performed By: #### E MRAD ####NO LOCATION NEEDED ACT-HIGH RANGE 440 SECONDS High 91 - 152 [facility] Comment on above: Performed By: #### E MRAD ####NO LOCATION NEEDED ACT-HIGH RANGE 437 SECONDS High 91 - 152 [facility] Comment on above: Performed By: #### E MRAD ####NO LOCATION NEEDED ACT-HIGH RANGE 117 SECONDS Normal 91 - 152 [facility] Comment on above: Performed By: #### E MRAD ####NO LOCATION NEEDED ARTERIAL BLOOD GASon 018 BASE EXCESS-BLOOD -3.2 mmol/L Low -2.0 - 3.0 [facility] Comment on above: Performed By: #### E MRAD ####NO LOCATION NEEDED Oxygen ppres (BldA) 63 mm[Hg] Low 85 - 95 [facility] Comment on above: Performed By: #### E MRAD ####NO LOCATION NEEDED PCO2 51 mmHg High 38 - 42 [facility] Comment on above: Performed By: #### E MRAD ####NO LOCATION NEEDED pH (Bld) 7.28 [pH] Low 7.38 - 7.42 [facility] Comment on above: Performed By: #### E MRAD ####NO LOCATION NEEDED RBC Auto #/vol (Bld) 24.0 mmol/L Normal 22.0 - 26.0 [facility] Comment on above: Performed By: #### E MRAD ####NO LOCATION NEEDED SO2 91 % Low 94 - 100 [facility] Comment on above: Performed By: #### E MRAD ####NO LOCATION NEEDED ARTERIAL FULL PANELon 2017 Anion gap 3 molar conc 9 mmol/L Low 10 - 25 [facility] Comment on above: Performed By: #### E MRAD ####NO LOCATION NEEDED BASE EXCESS-BLOOD 0.3 mmol/L Normal -2.0 - 3.0 [facility] Comment on above: Performed By: #### E MRAD ####NO LOCATION NEEDED CALCIUM,IONIZED 1.09 mmol/L Low 1.10 - 1.33 [facility] Comment on above: Performed By: #### E MRAD ####NO LOCATION NEEDED Chloride molar conc 103 mmol/L Normal 98 - 107 [facility] Comment on above: Performed By: #### E MRAD ####NO LOCATION NEEDED Glucose mass conc 159 mg/dL High 74 - 99 [facility] Comment on above: Performed By: #### E MRAD ####NO LOCATION NEEDED Hematocrit Auto Volume Fraction (Bld) 32.0 % Low 41.0 - 52.0 [facility] Comment on above: Performed By: #### E MRAD ####NO LOCATION NEEDED HGB,CALCULATED 10.9 g/dL Low 13.5 - 17.5 [facility] Comment on above: Performed By: #### E MRAD ####NO LOCATION NEEDED Lactate molar conc 2.4 mmol/L High 0.4 - 2.0 [facility] Comment on above: Performed By: #### E MRAD ####NO LOCATION NEEDED Oxygen ppres (BldA) 82 mm[Hg] Low 85 - 95 [facility] Comment on above: Performed By: #### E MRAD ####NO LOCATION NEEDED PCO2 42 mmHg Normal 38 - 42 [facility] Comment on above: Performed By: #### E MRAD ####NO LOCATION NEEDED pH (Bld) 7.39 [pH] Normal 7.38 - 7.42 [facility] Comment on above: Performed By: #### E MRAD ####NO LOCATION NEEDED Potassium molar conc 4.5 mmol/L Normal 3.5 - 5.3 [facility] Comment on above: Performed By: #### E MRAD ####NO LOCATION NEEDED RBC Auto #/vol (Bld) 25.4 mmol/L Normal 22.0 - 26.0 [facility] Comment on above: Performed By: #### E MRAD ####NO LOCATION NEEDED SO2 98 % Normal 94 - 100 [facility] Comment on above: Performed By: #### E MRAD ####NO LOCATION NEEDED Sodium molar conc 133 mmol/L Low 136 - 145 [facility] Comment on above: Performed By: #### E MRAD ####NO LOCATION NEEDED Anion gap 3 molar conc 11 mmol/L Normal 10 - 25 [facility] Comment on above: Performed By: #### E MRAD ####NO LOCATION NEEDED BASE EXCESS-BLOOD -0.5 mmol/L Normal -2.0 - 3.0 [facility] Comment on above: Performed By: #### E MRAD ####NO LOCATION NEEDED CALCIUM,IONIZED 1.13 mmol/L Normal 1.10 - 1.33 [facility] Comment on above: Performed By: #### E MRAD ####NO LOCATION NEEDED Chloride molar conc 104 mmol/L Normal 98 - 107 [facility] Comment on above: Performed By: #### E MRAD ####NO LOCATION NEEDED Glucose mass conc 169 mg/dL High 74 - 99 [facility] Comment on above: Performed By: #### E MRAD ####NO LOCATION NEEDED Hematocrit Auto Volume Fraction (Bld) 32.0 % Low 41.0 - 52.0 [facility] Comment on above: Performed By: #### E MRAD ####NO LOCATION NEEDED HGB,CALCULATED 10.9 g/dL Low 13.5 - 17.5 [facility] Comment on above: Performed By: #### E MRAD ####NO LOCATION NEEDED Lactate molar conc 2.5 mmol/L High 0.4 - 2.0 [facility] Comment on above: Performed By: #### E MRAD ####NO LOCATION NEEDED Oxygen ppres (BldA) 72 mm[Hg] Low 85 - 95 [facility] Comment on above: Performed By: #### E MRAD ####NO LOCATION NEEDED PCO2 43 mmHg High 38 - 42 [facility] Comment on above: Performed By: #### E MRAD ####NO LOCATION NEEDED pH (Bld) 7.37 [pH] Low 7.38 - 7.42 [facility] Comment on above: Performed By: #### E MRAD ####NO LOCATION NEEDED Potassium molar conc 4.8 mmol/L Normal 3.5 - 5.3 [facility] Comment on above: Performed By: #### E MRAD ####NO LOCATION NEEDED RBC Auto #/vol (Bld) 24.9 mmol/L Normal 22.0 - 26.0 [facility] Comment on above: Performed By: #### E MRAD ####NO LOCATION NEEDED SO2 96 % Normal 94 - 100 [facility] Comment on above: Performed By: #### E MRAD ####NO LOCATION NEEDED Sodium molar conc 135 mmol/L Low 136 - 145 [facility] Comment on above: Performed By: #### E MRAD ####NO LOCATION NEEDED Anion gap 3 molar conc 14 mmol/L Normal 10 - 25 [facility] Comment on above: Performed By: #### E MRAD ####NO LOCATION NEEDED BASE EXCESS-BLOOD -1.6 mmol/L Normal -2.0 - 3.0 [facility] Comment on above: Performed By: #### E MRAD ####NO LOCATION NEEDED CALCIUM,IONIZED 1.19 mmol/L Normal 1.10 - 1.33 [facility] Comment on above: Performed By: #### E MRAD ####NO LOCATION NEEDED Chloride molar conc 104 mmol/L Normal 98 - 107 [facility] Comment on above: Performed By: #### E MRAD ####NO LOCATION NEEDED Glucose mass conc 184 mg/dL High 74 - 99 [facility] Comment on above: Performed By: #### E MRAD ####NO LOCATION NEEDED Hematocrit Auto Volume Fraction (Bld) 32.0 % Low 41.0 - 52.0 [facility] Comment on above: Performed By: #### E MRAD ####NO LOCATION NEEDED HGB,CALCULATED 10.9 g/dL Low 13.5 - 17.5 [facility] Comment on above: Performed By: #### E MRAD ####NO LOCATION NEEDED Lactate molar conc 2.9 mmol/L High 0.4 - 2.0 [facility] Comment on above: Performed By: #### E MRAD ####NO LOCATION NEEDED Oxygen ppres (BldA) 79 mm[Hg] Low 85 - 95 [facility] Comment on above: Performed By: #### E MRAD ####NO LOCATION NEEDED PCO2 45 mmHg High 38 - 42 [facility] Comment on above: Performed By: #### E MRAD ####NO LOCATION NEEDED pH (Bld) 7.34 [pH] Low 7.38 - 7.42 [facility] Comment on above: Performed By: #### E MRAD ####NO LOCATION NEEDED Potassium molar conc 5.2 mmol/L Normal 3.5 - 5.3 [facility] Comment on above: Performed By: #### E MRAD ####NO LOCATION NEEDED RBC Auto #/vol (Bld) 24.3 mmol/L Normal 22.0 - 26.0 [facility] Comment on above: Performed By: #### E MRAD ####NO LOCATION NEEDED SO2 97 % Normal 94 - 100 [facility] Comment on above: Performed By: #### E MRAD ####NO LOCATION NEEDED Sodium molar conc 137 mmol/L Normal 136 - 145 [facility] Comment on above: Performed By: #### E MRAD ####NO LOCATION NEEDED Anion gap 3 molar conc 12 mmol/L Normal 10 - 25 [facility] Comment on above: Performed By: #### E MRAD ####NO LOCATION NEEDED BASE EXCESS-BLOOD -1.3 mmol/L Normal -2.0 - 3.0 [facility] Comment on above: Performed By: #### E MRAD ####NO LOCATION NEEDED CALCIUM,IONIZED 1.21 mmol/L Normal 1.10 - 1.33 [facility] Comment on above: Performed By: #### E MRAD ####NO LOCATION NEEDED Chloride molar conc 104 mmol/L Normal 98 - 107 [facility] Comment on above: Performed By: #### E MRAD ####NO LOCATION NEEDED Glucose mass conc 177 mg/dL High 74 - 99 [facility] Comment on above: Performed By: #### E MRAD ####NO LOCATION NEEDED Hematocrit Auto Volume Fraction (Bld) 29.0 % Low 41.0 - 52.0 [facility] Comment on above: Performed By: #### E MRAD ####NO LOCATION NEEDED HGB,CALCULATED 9.9 g/dL Low 13.5 - 17.5 [facility] Comment on above: Performed By: #### E MRAD ####NO LOCATION NEEDED Lactate molar conc 2.7 mmol/L High 0.4 - 2.0 [facility] Comment on above: Performed By: #### E MRAD ####NO LOCATION NEEDED Oxygen ppres (BldA) 67 mm[Hg] Low 85 - 95 [facility] Comment on above: Performed By: #### E MRAD ####NO LOCATION NEEDED PCO2 50 mmHg High 38 - 42 [facility] Comment on above: Performed By: #### E MRAD ####NO LOCATION NEEDED pH (Bld) 7.31 [pH] Low 7.38 - 7.42 [facility] Comment on above: Performed By: #### E MRAD ####NO LOCATION NEEDED Potassium molar conc 5.1 mmol/L Normal 3.5 - 5.3 [facility] Comment on above: Performed By: #### E MRAD ####NO LOCATION NEEDED RBC Auto #/vol (Bld) 25.2 mmol/L Normal 22.0 - 26.0 [facility] Comment on above: Performed By: #### E MRAD ####NO LOCATION NEEDED SO2 94 % Normal 94 - 100 [facility] Comment on above: Performed By: #### E MRAD ####NO LOCATION NEEDED Sodium molar conc 136 mmol/L Normal 136 - 145 [facility] Comment on above: Performed By: #### E MRAD ####NO LOCATION NEEDED Anion gap 3 molar conc 12 mmol/L Normal 10 - 25 [facility] Comment on above: Performed By: #### E MRAD ####NO LOCATION NEEDED BASE EXCESS-BLOOD -2.7 mmol/L Low -2.0 - 3.0 [facility] Comment on above: Performed By: #### E MRAD ####NO LOCATION NEEDED CALCIUM,IONIZED 1.16 mmol/L Normal 1.10 - 1.33 [facility] Comment on above: Performed By: #### E MRAD ####NO LOCATION NEEDED Chloride molar conc 105 mmol/L Normal 98 - 107 [facility] Comment on above: Performed By: #### E MRAD ####NO LOCATION NEEDED FIO2 67 % Normal [facility] Comment on above: Performed By: #### E MRAD ####NO LOCATION NEEDED Glucose mass conc 198 mg/dL High 74 - 99 [facility] Comment on above: Performed By: #### E MRAD ####NO LOCATION NEEDED Hematocrit Auto Volume Fraction (Bld) 30.0 % Low 41.0 - 52.0 [facility] Comment on above: Performed By: #### E MRAD ####NO LOCATION NEEDED HGB,CALCULATED 10.2 g/dL Low 13.5 - 17.5 [facility] Comment on above: Performed By: #### E MRAD ####NO LOCATION NEEDED Lactate molar conc 3.3 mmol/L High 0.4 - 2.0 [facility] Comment on above: Performed By: #### E MRAD ####NO LOCATION NEEDED Oxygen ppres (BldA) 97 mm[Hg] High 85 - 95 [facility] Comment on above: Performed By: #### E MRAD ####NO LOCATION NEEDED PCO2 40 mmHg Normal 38 - 42 [facility] Comment on above: Performed By: #### E MRAD ####NO LOCATION NEEDED pH (Bld) 7.36 [pH] Low 7.38 - 7.42 [facility] Comment on above: Performed By: #### E MRAD ####NO LOCATION NEEDED Potassium molar conc 5.1 mmol/L Normal 3.5 - 5.3 [facility] Comment on above: Performed By: #### E MRAD ####NO LOCATION NEEDED RBC Auto #/vol (Bld) 22.6 mmol/L Normal 22.0 - 26.0 [facility] Comment on above: Performed By: #### E MRAD ####NO LOCATION NEEDED SO2 99 % Normal 94 - 100 [facility] Comment on above: Performed By: #### E MRAD ####NO LOCATION NEEDED Sodium molar conc 134 mmol/L Low 136 - 145 [facility] Comment on above: Performed By: #### E MRAD ####NO LOCATION NEEDED Anion gap 3 molar conc 13 mmol/L Normal 10 - 25 [facility] Comment on above: Performed By: #### A FPA3 ####[id number] [place] [address] BASE EXCESS-BLOOD -3.0 mmol/L Low -2.0 - 3.0 [facility] Comment on above: Performed By: #### A FPA3 ####[id number] [place] [address] CALCIUM,IONIZED 1.16 mmol/L Normal 1.10 - 1.33 [facility] Comment on above: Performed By: #### A FPA3 ####[id number] [place] [address] Chloride molar conc 104 mmol/L Normal 98 - 107 [facility] Comment on above: Performed By: #### A FPA3 ####[id number] [place] [address] FIO2 67 % Normal [facility] Comment on above: Performed By: #### A FPA3 ####[id number] [place] [address] Glucose mass conc 189 mg/dL High 74 - 99 [facility] Comment on above: Performed By: #### A FPA3 ####[id number] [place] [address] Hematocrit Auto Volume Fraction (Bld) 31.0 % Low 41.0 - 52.0 [facility] Comment on above: Performed By: #### A FPA3 ####[id number] [place] [address] HGB,CALCULATED 10.5 g/dL Low 13.5 - 17.5 [facility] Comment on above: Performed By: #### A FPA3 ####[id number] [place] [address] Lactate molar conc 3.9 mmol/L High 0.4 - 2.0 [facility] Comment on above: Performed By: #### A FPA3 ####[id number] [place] [address] Oxygen ppres (BldA) 105 mm[Hg] High 85 - 95 [facility] Comment on above: Performed By: #### A FPA3 ####[id number] [place] [address] PCO2 38 mmHg Normal 38 - 42 [facility] Comment on above: Performed By: #### A FPA3 ####[id number] [place] [address] pH (Bld) 7.37 [pH] Low 7.38 - 7.42 [facility] Comment on above: Performed By: #### A FPA3 ####[id number] [place] [address] Potassium molar conc 5.0 mmol/L Normal 3.5 - 5.3 [facility] Comment on above: Performed By: #### A FPA3 ####[id number] [place] [address] RBC Auto #/vol (Bld) 22.0 mmol/L Normal 22.0 - 26.0 [facility] Comment on above: Performed By: #### A FPA3 ####[id number] [place] [address] SO2 99 % Normal 94 - 100 [facility] Comment on above: Performed By: #### A FPA3 ####[id number] [place] [address] Sodium molar conc 134 mmol/L Low 136 - 145 [facility] Comment on above: Performed By: #### A FPA3 ####[id number] [place] [address] Anion gap 3 molar conc 12 mmol/L Normal 10 - 25 [facility] Comment on above: Performed By: #### A FPA3 ####[id number] [place] [address] BASE EXCESS-BLOOD -4.5 mmol/L Low -2.0 - 3.0 [facility] Comment on above: Performed By: #### A FPA3 ####[id number] [place] [address] CALCIUM,IONIZED 1.28 mmol/L Normal 1.10 - 1.33 [facility] Comment on above: Performed By: #### A FPA3 ####[id number] [place] [address] Chloride molar conc 105 mmol/L Normal 98 - 107 [facility] Comment on above: Performed By: #### A FPA3 ####[id number] [place] [address] FIO2 94 % Normal [facility] Comment on above: Performed By: #### A FPA3 ####[id number] [place] [address] Glucose mass conc 208 mg/dL High 74 - 99 [facility] Comment on above: Performed By: #### A FPA3 ####[id number] [place] [address] Hematocrit Auto Volume Fraction (Bld) 30.0 % Low 41.0 - 52.0 [facility] Comment on above: Performed By: #### A FPA3 ####[id number] [place] [address] HGB,CALCULATED 10.2 g/dL Low 13.5 - 17.5 [facility] Comment on above: Performed By: #### A FPA3 ####[id number] [place] [address] Lactate molar conc 4.0 mmol/L Critically high 0.4 - 2.0 [facility] Comment on above: Performed By: #### A FPA3 ####[id number] [place] [address] Oxygen ppres (BldA) 243 mm[Hg] High 85 - 95 [facility] Comment on above: Performed By: #### A FPA3 ####[id number] [place] [address] PCO2 46 mmHg High 38 - 42 [facility] Comment on above: Performed By: #### A FPA3 ####[id number] [place] [address] pH (Bld) 7.29 [pH] Low 7.38 - 7.42 [facility] Comment on above: Performed By: #### A FPA3 ####[id number] [place] [address] Potassium molar conc 4.8 mmol/L Normal 3.5 - 5.3 [facility] Comment on above: Performed By: #### A FPA3 ####[id number] [place] [address] RBC Auto #/vol (Bld) 22.1 mmol/L Normal 22.0 - 26.0 [facility] Comment on above: Performed By: #### A FPA3 ####[id number] [place] [address] SO2 100 % Normal 94 - 100 [facility] Comment on above: Performed By: #### A FPA3 ####[id number] [place] [address] Sodium molar conc 134 mmol/L Low 136 - 145 [facility] Comment on above: Performed By: #### A FPA3 ####[id number] [place] [address] Anion gap 3 molar conc 11 mmol/L Normal 10 - 25 [facility] Comment on above: Performed By: #### A FPA3 ####[id number] [place] [address] BASE EXCESS-BLOOD -2.9 mmol/L Low -2.0 - 3.0 [facility] Comment on above: Performed By: #### A FPA3 ####[id number] [place] [address] CALCIUM,IONIZED 1.04 mmol/L Low 1.10 - 1.33 [facility] Comment on above: Performed By: #### A FPA3 ####[id number] [place] [address] Chloride molar conc 104 mmol/L Normal 98 - 107 [facility] Comment on above: Performed By: #### A FPA3 ####[id number] [place] [address] FIO2 80 % Normal [facility] Comment on above: Performed By: #### A FPA3 ####[id number] [place] [address] Glucose mass conc 251 mg/dL High 74 - 99 [facility] Comment on above: Performed By: #### A FPA3 ####[id number] [place] [address] Hematocrit Auto Volume Fraction (Bld) 29.0 % Low 41.0 - 52.0 [facility] Comment on above: Performed By: #### A FPA3 ####[id number] [place] [address] HGB,CALCULATED 9.9 g/dL Low 13.5 - 17.5 [facility] Comment on above: Performed By: #### A FPA3 ####[id number] [place] [address] Lactate molar conc 4.0 mmol/L Critically high 0.4 - 2.0 [facility] Comment on above: Performed By: #### A FPA3 ####[id number] [place] [address] Oxygen ppres (BldA) 252 mm[Hg] High 85 - 95 [facility] Comment on above: Performed By: #### A FPA3 ####[id number] [place] [address] PCO2 41 mmHg Normal 38 - 42 [facility] Comment on above: Performed By: #### A FPA3 ####[id number] [place] [address] pH (Bld) 7.35 [pH] Low 7.38 - 7.42 [facility] Comment on above: Performed By: #### A FPA3 ####[id number] [place] [address] Potassium molar conc 6.1 mmol/L Critically high 3.5 - 5.3 [facility] Comment on above: Performed By: #### A FPA3 ####[id number] [place] [address] RBC Auto #/vol (Bld) 22.6 mmol/L Normal 22.0 - 26.0 [facility] Comment on above: Performed By: #### A FPA3 ####[id number] [place] [address] SO2 99 % Normal 94 - 100 [facility] Comment on above: Performed By: #### A FPA3 ####[id number] [place] [address] Sodium molar conc 131 mmol/L Low 136 - 145 [facility] Comment on above: Performed By: #### A FPA3 ####[id number] [place] [address] Anion gap 3 molar conc 12 mmol/L Normal 10 - 25 [facility] Comment on above: Performed By: #### A FPA3 ####[id number] [place] [address] BASE EXCESS-BLOOD -2.2 mmol/L Low -2.0 - 3.0 [facility] Comment on above: Performed By: #### A FPA3 ####[id number] [place] [address] CALCIUM,IONIZED 1.04 mmol/L Low 1.10 - 1.33 [facility] Comment on above: Performed By: #### A FPA3 ####[id number] [place] [address] Chloride molar conc 103 mmol/L Normal 98 - 107 [facility] Comment on above: Performed By: #### A FPA3 ####[id number] [place] [address] FIO2 75 % Normal [facility] Comment on above: Performed By: #### A FPA3 ####[id number] [place] [address] Glucose mass conc 246 mg/dL High 74 - 99 [facility] Comment on above: Performed By: #### A FPA3 ####[id number] [place] [address] Hematocrit Auto Volume Fraction (Bld) 29.0 % Low 41.0 - 52.0 [facility] Comment on above: Performed By: #### A FPA3 ####[id number] [place] [address] HGB,CALCULATED 9.9 g/dL Low 13.5 - 17.5 [facility] Comment on above: Performed By: #### A FPA3 ####[id number] [place] [address] Lactate molar conc 3.8 mmol/L High 0.4 - 2.0 [facility] Comment on above: Performed By: #### A FPA3 ####[id number] [place] [address] Oxygen ppres (BldA) 232 mm[Hg] High 85 - 95 [facility] Comment on above: Performed By: #### A FPA3 ####[id number] [place] [address] PCO2 41 mmHg Normal 38 - 42 [facility] Comment on above: Performed By: #### A FPA3 ####[id number] [place] [address] pH (Bld) 7.36 [pH] Low 7.38 - 7.42 [facility] Comment on above: Performed By: #### A FPA3 ####[id number] [place] [address] Potassium molar conc 6.5 mmol/L Critically high 3.5 - 5.3 [facility] Comment on above: Performed By: #### A FPA3 ####[id number] [place] [address] RBC Auto #/vol (Bld) 23.2 mmol/L Normal 22.0 - 26.0 [facility] Comment on above: Performed By: #### A FPA3 ####[id number] [place] [address] SO2 100 % Normal 94 - 100 [facility] Comment on above: Performed By: #### A FPA3 ####[id number] [place] [address] Sodium molar conc 132 mmol/L Low 136 - 145 [facility] Comment on above: Performed By: #### A FPA3 ####[id number] [place] [address] Anion gap 3 molar conc 11 mmol/L Normal 10 - 25 [facility] Comment on above: Performed By: #### A FPA3 ####[id number] [place] [address] BASE EXCESS-BLOOD -1.8 mmol/L Normal -2.0 - 3.0 [facility] Comment on above: Performed By: #### A FPA3 ####[id number] [place] [address] CALCIUM,IONIZED 1.03 mmol/L Low 1.10 - 1.33 [facility] Comment on above: Performed By: #### A FPA3 ####[id number] [place] [address] Chloride molar conc 103 mmol/L Normal 98 - 107 [facility] Comment on above: Performed By: #### A FPA3 ####[id number] [place] [address] FIO2 75 % Normal [facility] Comment on above: Performed By: #### A FPA3 ####[id number] [place] [address] Glucose mass conc 251 mg/dL High 74 - 99 [facility] Comment on above: Performed By: #### A FPA3 ####[id number] [place] [address] Hematocrit Auto Volume Fraction (Bld) 28.0 % Low 41.0 - 52.0 [facility] Comment on above: Performed By: #### A FPA3 ####[id number] [place] [address] HGB,CALCULATED 9.5 g/dL Low 13.5 - 17.5 [facility] Comment on above: Performed By: #### A FPA3 ####[id number] [place] [address] Lactate molar conc 3.8 mmol/L High 0.4 - 2.0 [facility] Comment on above: Performed By: #### A FPA3 ####[id number] [place] [address] Oxygen ppres (BldA) 312 mm[Hg] High 85 - 95 [facility] Comment on above: Performed By: #### A FPA3 ####[id number] [place] [address] PCO2 46 mmHg High 38 - 42 [facility] Comment on above: Performed By: #### A FPA3 ####[id number] [place] [address] pH (Bld) 7.33 [pH] Low 7.38 - 7.42 [facility] Comment on above: Performed By: #### A FPA3 ####[id number] [place] [address] Potassium molar conc 6.5 mmol/L Critically high 3.5 - 5.3 [facility] Comment on above: Performed By: #### A FPA3 ####[id number] [place] [address] RBC Auto #/vol (Bld) 24.3 mmol/L Normal 22.0 - 26.0 [facility] Comment on above: Performed By: #### A FPA3 ####[id number] [place] [address] SO2 100 % Normal 94 - 100 [facility] Comment on above: Performed By: #### A FPA3 ####[id number] [place] [address] Sodium molar conc 132 mmol/L Low 136 - 145 [facility] Comment on above: Performed By: #### A FPA3 ####[id number] [place] [address] Anion gap 3 molar conc 12 mmol/L Normal 10 - 25 [facility] Comment on above: Performed By: #### A FPA3 ####[id number] [place] [address] BASE EXCESS-BLOOD -0.1 mmol/L Normal -2.0 - 3.0 [facility] Comment on above: Performed By: #### A FPA3 ####[id number] [place] [address] CALCIUM,IONIZED 0.87 mmol/L Low 1.10 - 1.33 [facility] Comment on above: Performed By: #### A FPA3 ####[id number] [place] [address] Chloride molar conc 101 mmol/L Normal 98 - 107 [facility] Comment on above: Performed By: #### A FPA3 ####[id number] [place] [address] FIO2 80 % Normal [facility] Comment on above: Performed By: #### A FPA3 ####[id number] [place] [address] Glucose mass conc 230 mg/dL High 74 - 99 [facility] Comment on above: Performed By: #### A FPA3 ####[id number] [place] [address] Hematocrit Auto Volume Fraction (Bld) 27.0 % Low 41.0 - 52.0 [facility] Comment on above: Performed By: #### A FPA3 ####[id number] [place] [address] HGB,CALCULATED 9.2 g/dL Low 13.5 - 17.5 [facility] Comment on above: Performed By: #### A FPA3 ####[id number] [place] [address] Lactate molar conc 3.1 mmol/L High 0.4 - 2.0 [facility] Comment on above: Performed By: #### A FPA3 ####[id number] [place] [address] Oxygen ppres (BldA) 392 mm[Hg] High 85 - 95 [facility] Comment on above: Performed By: #### A FPA3 ####[id number] [place] [address] PCO2 47 mmHg High 38 - 42 [facility] Comment on above: Performed By: #### A FPA3 ####[id number] [place] [address] pH (Bld) 7.35 [pH] Low 7.38 - 7.42 [facility] Comment on above: Performed By: #### A FPA3 ####[id number] [place] [address] Potassium molar conc 5.1 mmol/L Normal 3.5 - 5.3 [facility] Comment on above: Performed By: #### A FPA3 ####[id number] [place] [address] RBC Auto #/vol (Bld) 25.9 mmol/L Normal 22.0 - 26.0 [facility] Comment on above: Performed By: #### A FPA3 ####[id number] [place] [address] SO2 99 % Normal 94 - 100 [facility] Comment on above: Performed By: #### A FPA3 ####[id number] [place] [address] Sodium molar conc 134 mmol/L Low 136 - 145 [facility] Comment on above: Performed By: #### A FPA3 ####[id number] [place] [address] Anion gap 3 molar conc 14 mmol/L Normal 10 - 25 [facility] Comment on above: Performed By: #### A FPA3 ####[id number] [place] [address] BASE EXCESS-BLOOD -3.6 mmol/L Low -2.0 - 3.0 [facility] Comment on above: Performed By: #### A FPA3 ####[id number] [place] [address] CALCIUM,IONIZED 1.10 mmol/L Normal 1.10 - 1.33 [facility] Comment on above: Performed By: #### A FPA3 ####[id number] [place] [address] Chloride molar conc 100 mmol/L Normal 98 - 107 [facility] Comment on above: Performed By: #### A FPA3 ####[id number] [place] [address] FIO2 64 % Normal [facility] Comment on above: Performed By: #### A FPA3 ####[id number] [place] [address] Glucose mass conc 268 mg/dL High 74 - 99 [facility] Comment on above: Performed By: #### A FPA3 ####[id number] [place] [address] Hematocrit Auto Volume Fraction (Bld) 36.0 % Low 41.0 - 52.0 [facility] Comment on above: Performed By: #### A FPA3 ####[id number] [place] [address] HGB,CALCULATED 12.2 g/dL Low 13.5 - 17.5 [facility] Comment on above: Performed By: #### A FPA3 ####[id number] [place] [address] Lactate molar conc 3.1 mmol/L High 0.4 - 2.0 [facility] Comment on above: Performed By: #### A FPA3 ####[id number] [place] [address] Oxygen ppres (BldA) 111 mm[Hg] High 85 - 95 [facility] Comment on above: Performed By: #### A FPA3 ####[id number] [place] [address] PCO2 47 mmHg High 38 - 42 [facility] Comment on above: Performed By: #### A FPA3 ####[id number] [place] [address] pH (Bld) 7.30 [pH] Low 7.38 - 7.42 [facility] Comment on above: Performed By: #### A FPA3 ####[id number] [place] [address] Potassium molar conc 5.3 mmol/L Normal 3.5 - 5.3 [facility] Comment on above: Performed By: #### A FPA3 ####[id number] [place] [address] RBC Auto #/vol (Bld) 23.1 mmol/L Normal 22.0 - 26.0 [facility] Comment on above: Performed By: #### A FPA3 ####[id number] [place] [address] SO2 99 % Normal 94 - 100 [facility] Comment on above: Performed By: #### A FPA3 ####[id number] [place] [address] Sodium molar conc 132 mmol/L Low 136 - 145 [facility] Comment on above: Performed By: #### A FPA3 ####[id number] [place] [address] Anion gap 3 molar conc 13 mmol/L Normal 10 - 25 [facility] Comment on above: Performed By: #### A FPA3 ####[id number] [place] [address] BASE EXCESS-BLOOD -3.2 mmol/L Low -2.0 - 3.0 [facility] Comment on above: Performed By: #### A FPA3 ####[id number] [place] [address] CALCIUM,IONIZED 1.20 mmol/L Normal 1.10 - 1.33 [facility] Comment on above: Performed By: #### A FPA3 ####[id number] [place] [address] Chloride molar conc 102 mmol/L Normal 98 - 107 [facility] Comment on above: Performed By: #### A FPA3 ####[id number] [place] [address] FIO2 100 % Normal [facility] Comment on above: Performed By: #### A FPA3 ####[id number] [place] [address] Glucose mass conc 238 mg/dL High 74 - 99 [facility] Comment on above: Performed By: #### A FPA3 ####[id number] [place] [address] Hematocrit Auto Volume Fraction (Bld) 40.0 % Low 41.0 - 52.0 [facility] Comment on above: Performed By: #### A FPA3 ####[id number] [place] [address] HGB,CALCULATED 13.6 g/dL Normal 13.5 - 17.5 [facility] Comment on above: Performed By: #### A FPA3 ####[id number] [place] [address] Lactate molar conc 2.3 mmol/L High 0.4 - 2.0 [facility] Comment on above: Performed By: #### A FPA3 ####[id number] [place] [address] Oxygen ppres (BldA) 383 mm[Hg] High 85 - 95 [facility] Comment on above: Performed By: #### A FPA3 ####[id number] [place] [address] PCO2 48 mmHg High 38 - 42 [facility] Comment on above: Performed By: #### A FPA3 ####[id number] [place] [address] pH (Bld) 7.30 [pH] Low 7.38 - 7.42 [facility] Comment on above: Performed By: #### A FPA3 ####[id number] [place] [address] Potassium molar conc 4.6 mmol/L Normal 3.5 - 5.3 [facility] Comment on above: Performed By: #### A FPA3 ####[id number] [place] [address] RBC Auto #/vol (Bld) 23.6 mmol/L Normal 22.0 - 26.0 [facility] Comment on above: Performed By: #### A FPA3 ####[id number] [place] [address] SO2 99 % Normal 94 - 100 [facility] Comment on above: Performed By: #### A FPA3 ####[id number] [place] [address] Sodium molar conc 134 mmol/L Low 136 - 145 [facility] Comment on above: Performed By: #### A FPA3 ####[id number] [place] [address] CALCIUM, IONIZEDon 8 CALCIUM,IONIZED 1.24 mmol/L Normal 1.10 - 1.33 [facility] Comment on above: Result Comment: The performance [...] (RBC) 12.8 % Normal 11.5 - 14.5 [facility] Comment on above: Performed By: #### E MRAD ####NO LOCATION NEEDED Hematocrit Auto Volume Fraction (Bld) 37.9 % Low 41.0 - 52.0 [facility] Comment on above: Performed By: #### E MRAD ####NO LOCATION NEEDED Hemoglobin mass conc (Bld) 12.7 g/dL Low 13.5 - 17.5 [facility] Comment on above: Performed By: #### E MRAD ####NO LOCATION NEEDED MCHC Auto mass conc (RBC) 33.5 g/dL Normal 32.0 - 36.0 [facility] Comment on above: Performed By: #### E MRAD ####NO LOCATION NEEDED MCV Auto Entitic volume (RBC) 92 fL Normal 80 - 100 [facility] Comment on above: Performed By: #### E MRAD ####NO LOCATION NEEDED Nucleated RBC/100 WBC Ratio (Bld) 0.0 /100 WBC Normal 0.0-0.0 [facility] Comment on above: Performed By: #### E MRAD ####NO LOCATION NEEDED Platelets Auto #/vol (Bld) 201 10*3/uL Normal 150 - 450 [facility] Comment on above: Performed By: #### E MRAD ####NO LOCATION NEEDED RBC Auto #/vol (Bld) 4.12 x10E12/L Low 4.50 - 5.90 [facility] Comment on above: Performed By: #### E MRAD ####NO LOCATION NEEDED WBC Auto #/vol (Bld) 19.7 10*3/uL High 4.4 - 11.3 [facility] Comment on above: Performed By: #### E MRAD ####NO LOCATION NEEDED Erythrocyte distribution width Auto Ratio (RBC) 12.7 % Normal 11.5 - 14.5 [facility] Comment on above: Performed By: #### C BC ####[id number] [place] [address] Hematocrit Auto Volume Fraction (Bld) 33.7 % Low 41.0 - 52.0 [facility] Comment on above: Performed By: #### C BC ####[id number] [place] [address] Hemoglobin mass conc (Bld) 11.5 g/dL Low 13.5 - 17.5 [facility] Comment on above: Performed By: #### C BC ####[id number] [place] [address] MCHC Auto mass conc (RBC) 34.1 g/dL Normal 32.0 - 36.0 [facility] Comment on above: Performed By: #### C BC ####[id number] [place] [address] MCV Auto Entitic volume (RBC) 92 fL Normal 80 - 100 [facility] Comment on above: Performed By: #### C BC ####[id number] [place] [address] Nucleated RBC/100 WBC Ratio (Bld) 0.0 /100 WBC Normal 0.0-0.0 [facility] Comment on above: Performed By: #### C BC ####[id number] [place] [address] Platelets Auto #/vol (Bld) 167 10*3/uL Normal 150 - 450 [facility] Comment on above: Performed By: #### C BC ####[id number] [place] [address] RBC Auto #/vol (Bld) 3.66 x10E12/L Low 4.50 - 5.90 [facility] Comment on above: Performed By: #### C BC ####[id number] [place] [address] WBC Auto #/vol (Bld) 14.7 10*3/uL High 4.4 - 11.3 [facility] Comment on above: Performed By: #### C BC ####[id number] [place] [address] Erythrocyte distribution width Auto Ratio (RBC) 12.7 % Normal 11.5 - 14.5 [facility] Comment on above: Performed By: #### C BC ####[id number] [place] [address] Hematocrit Auto Volume Fraction (Bld) 40.5 % Low 41.0 - 52.0 [facility] Comment on above: Performed By: #### C BC ####[id number] [place] [address] Hemoglobin mass conc (Bld) 13.9 g/dL Normal 13.5 - 17.5 [facility] Comment on above: Performed By: #### C BC ####[id number] [place] [address] MCHC Auto mass conc (RBC) 34.3 g/dL Normal 32.0 - 36.0 [facility] Comment on above: Performed By: #### C BC ####[id number] [place] [address] MCV Auto Entitic volume (RBC) 91 fL Normal 80 - 100 [facility] Comment on above: Performed By: #### C BC ####[id number] [place] [address] Nucleated RBC/100 WBC Ratio (Bld) 0.0 /100 WBC Normal 0.0-0.0 [facility] Comment on above: Performed By: #### C BC ####[id number] [place] [address] Platelets Auto #/vol (Bld) 220 10*3/uL Normal 150 - 450 [facility] Comment on above: Performed By: #### C BC ####[id number] [place] [address] RBC Auto #/vol (Bld) 4.44 x10E12/L Low 4.50 - 5.90 [facility] Comment on above: Performed By: #### C BC ####[id number] [place] [address] WBC Auto #/vol (Bld) 8.6 10*3/uL Normal 4.4 - 11.3 [facility] Comment on above: Performed By: #### C BC ####[id number] [place] [address] COAGULATION SCREENon 03-31- 018 aPTT Coag time (Bld) 27 s Low 28 - 38 [facility] Comment on above: Result Comment: Note new reference range as of 03/10/2018. THE APTT IS NO LONGER USED FOR MONITORING UNFRACTIONATED HEPARIN THERAPY. FOR MONITORING HEPARIN THERAPY, USE THE HEPARIN ASSAY. Performed By: #### E MRAD ####NO LOCATION NEEDED INR Coag RelTime (PPP) 1.2 {INR} High 0.9 - 1.1 [facility] Comment on above: Performed By: #### E MRAD ####NO LOCATION NEEDED Prothrombin time (PT) Coag time (PPP) 13.8 s High 9.7 - 12.7 [facility] Comment on above: Result Comment: Note new reference range as of 03/10/2018. Performed By: #### E MRAD ####NO LOCATION NEEDED aPTT Coag time (Bld) 27 s Low 28 - 38 [facility] Comment on above: Result Comment: Note new reference range as of 03/10/2018. THE APTT IS NO LONGER USED FOR MONITORING UNFRACTIONATED HEPARIN THERAPY. FOR MONITORING HEPARIN THERAPY, USE THE HEPARIN ASSAY. Performed By: #### C OAGS ####[id number] [place] [address] INR Coag RelTime (PPP) 1.4 {INR} High 0.9 - 1.1 [facility] Comment on above: Performed By: #### C OAGS ####[id number] [place] [address] Prothrombin time (PT) Coag time (PPP) 16.0 s High 9.7 - 12.7 [facility] Comment on above: Result Comment: Note new reference range as of 03/10/2018. Performed By: #### C OAGS ####[id number] [place] [address] aPTT Coag time (Bld) 66 s High 28 - 38 [facility] Comment on above: Result Comment: Note new reference range as of 03/10/2018. THE APTT IS NO LONGER USED FOR MONITORING UNFRACTIONATED HEPARIN THERAPY. FOR MONITORING HEPARIN THERAPY, USE THE HEPARIN ASSAY. Performed By: #### C OAGS ####[id number] [place] [address] INR Coag RelTime (PPP) 1.2 {INR} High 0.9 - 1.1 [facility] Comment on above: Performed By: #### C OAGS ####[id number] [place] [address] Prothrombin time (PT) Coag time (PPP) 13.4 s High 9.7 - 12.7 [facility] Comment on above: Result Comment: Note new reference range as of 03/10/2018. Performed By: #### C OAGS ####[id number] [place] [address] COOX PANEL, ARTERIALon 03-31 DEOXY HGB 1.4 % Normal 0.0 - 5.0 [facility] Comment on above: Performed By: #### E MRAD ####NO LOCATION NEEDED Hemoglobin mass conc (Bld) 11.5 g/dL Low 13.5 - 17.5 [facility] Comment on above: Performed By: #### E MRAD ####NO LOCATION NEEDED Hemoglobin mass conc (Bld) 2.1 % Abnormal [facility] Comment on above: Result Comment: REF VALUESNONSMOKERS 0.5-1.5%SMOKERS 0.5-10.0% Performed By: #### E MRAD ####NO LOCATION NEEDED MET HGB 1.0 % Normal 0.0 - 1.5 [facility] Comment on above: Performed By: #### E MRAD ####NO LOCATION NEEDED OXY HGB 95.5 % Normal 94.0 - 98.0 [facility] Comment on above: Performed By: #### E MRAD ####NO LOCATION NEEDED DEOXY HGB 1.2 % Normal 0.0 - 5.0 [facility] Comment on above: Performed By: #### C OOXA ####[id number] [place] [address] Hemoglobin mass conc (Bld) 12.0 g/dL Low 13.5 - 17.5 [facility] Comment on above: Performed By: #### C OOXA ####[id number] [place] [address] Hemoglobin mass conc (Bld) 2.1 % Abnormal [facility] Comment on above: Result Comment: REF VALUESNONSMOKERS 0.5-1.5%SMOKERS 0.5-10.0% Performed By: #### C OOXA ####[id number] [place] [address] MET HGB 1.3 % Normal 0.0 - 1.5 [facility] Comment on above: Performed By: #### C OOXA ####[id number] [place] [address] OXY HGB 95.4 % Normal 94.0 - 98.0 [facility] Comment on above: Performed By: #### C OOXA ####[id number] [place] [address] DEOXY HGB 0.3 % Normal 0.0 - 5.0 [facility] Comment on above: Performed By: #### C OOXA ####[id number] [place] [address] Hemoglobin mass conc (Bld) 11.7 g/dL Low 13.5 - 17.5 [facility] Comment on above: Performed By: #### C OOXA ####[id number] [place] [address] Hemoglobin mass conc (Bld) 2.0 % Abnormal [facility] Comment on above: Result Comment: REF VALUESNONSMOKERS 0.5-1.5%SMOKERS 0.5-10.0% Performed By: #### C OOXA ####[id number] [place] [address] MET HGB 1.1 % Normal 0.0 - 1.5 [facility] Comment on above: Performed By: #### C OOXA ####[id number] [place] [address] OXY HGB 96.5 % Normal 94.0 - 98.0 [facility] Comment on above: Performed By: #### C OOXA ####[id number] [place] [address] DEOXY HGB 0.6 % Normal 0.0 - 5.0 [facility] Comment on above: Performed By: #### C OOXA ####[id number] [place] [address] Hemoglobin mass conc (Bld) 1.8 % Abnormal [facility] Comment on above: Result Comment: REF VALUESNONSMOKERS 0.5-1.5%SMOKERS 0.5-10.0% Performed By: #### C OOXA ####[id number] [place] [address] Hemoglobin mass conc (Bld) 11.4 g/dL Low 13.5 - 17.5 [facility] Comment on above: Performed By: #### C OOXA ####[id number] [place] [address] MET HGB 1.0 % Normal 0.0 - 1.5 [facility] Comment on above: Performed By: #### C OOXA ####[id number] [place] [address] OXY HGB 96.6 % Normal 94.0 - 98.0 [facility] Comment on above: Performed By: #### C OOXA ####[id number] [place] [address] DEOXY HGB 0.3 % Normal 0.0 - 5.0 [facility] Comment on above: Performed By: #### C OOXA ####[id number] [place] [address] Hemoglobin mass conc (Bld) 2.0 % Abnormal [facility] Comment on above: Result Comment: REF VALUESNONSMOKERS 0.5-1.5%SMOKERS 0.5-10.0% Performed By: #### C OOXA ####[id number] [place] [address] Hemoglobin mass conc (Bld) 11.3 g/dL Low 13.5 - 17.5 [facility] Comment on above: Performed By: #### C OOXA ####[id number] [place] [address] MET HGB 0.7 % Normal 0.0 - 1.5 [facility] Comment on above: Performed By: #### C OOXA ####[id number] [place] [address] OXY HGB 97.0 % Normal 94.0 - 98.0 [facility] Comment on above: Performed By: #### C OOXA ####[id number] [place] [address] DEOXY HGB -0.1 % Low 0.0 - 5.0 [facility] Comment on above: Performed By: #### C OOXA ####[id number] [place] [address] Hemoglobin mass conc (Bld) 2.2 % Abnormal [facility] Comment on above: Result Comment: REF VALUESNONSMOKERS 0.5-1.5%SMOKERS 0.5-10.0% Performed By: #### C OOXA ####[id number] [place] [address] Hemoglobin mass conc (Bld) 11.3 g/dL Low 13.5 - 17.5 [facility] Comment on above: Performed By: #### C OOXA ####[id number] [place] [address] MET HGB 0.8 % Normal 0.0 - 1.5 [facility] Comment on above: Performed By: #### C OOXA ####[id number] [place] [address] OXY HGB 97.1 % Normal 94.0 - 98.0 [facility] Comment on above: Performed By: #### C OOXA ####[id number] [place] [address] DEOXY HGB 1.0 % Normal 0.0 - 5.0 [facility] Comment on above: Performed By: #### C OOXA ####[id number] [place] [address] Hemoglobin mass conc (Bld) 1.9 % Abnormal [facility] Comment on above: Result Comment: REF VALUESNONSMOKERS 0.5-1.5%SMOKERS 0.5-10.0% Performed By: #### C OOXA ####[id number] [place] [address] Hemoglobin mass conc (Bld) 10.9 g/dL Low 13.5 - 17.5 [facility] Comment on above: Performed By: #### C OOXA ####[id number] [place] [address] MET HGB 1.7 % High 0.0 - 1.5 [facility] Comment on above: Performed By: #### C OOXA ####[id number] [place] [address] OXY HGB 95.4 % Normal 94.0 - 98.0 [facility] Comment on above: Performed By: #### C OOXA ####[id number] [place] [address] DEOXY HGB 1.5 % Normal 0.0 - 5.0 [facility] Comment on above: Performed By: #### C OOXA ####[id number] [place] [address] Hemoglobin mass conc (Bld) 13.2 g/dL Low 13.5 - 17.5 [facility] Comment on above: Performed By: #### C OOXA ####[id number] [place] [address] Hemoglobin mass conc (Bld) 1.6 % Abnormal [facility] Comment on above: Result Comment: REF VALUESNONSMOKERS 0.5-1.5%SMOKERS 0.5-10.0% Performed By: #### C OOXA ####[id number] [place] [address] MET HGB 0.8 % Normal 0.0 - 1.5 [facility] Comment on above: Performed By: #### C OOXA ####[id number] [place] [address] OXY HGB 96.2 % Normal 94.0 - 98.0 [facility] Comment on above: Performed By: #### C OOXA ####[id number] [place] [address] DEOXY HGB 0.7 % Normal 0.0 - 5.0 [facility] Comment on above: Performed By: #### C OOXA ####[id number] [place] [address] Hemoglobin mass conc (Bld) 1.5 % Normal [facility] Comment on above: Result Comment: REF VALUESNONSMOKERS 0.5-1.5%SMOKERS 0.5-10.0% Performed By: #### C OOXA ####[id number] [place] [address] Hemoglobin mass conc (Bld) 14.7 g/dL Normal 13.5 - 17.5 [facility] Comment on above: Performed By: #### C OOXA ####[id number] [place] [address] MET HGB 0.9 % Normal 0.0 - 1.5 [facility] Comment on above: Performed By: #### C OOXA ####[id number] [place] [address] OXY HGB 96.9 % Normal 94.0 - 98.0 [facility] Comment on above: Performed By: #### C OOXA ####[id number] [place] [address] CORTISOL, A.M.on 03-31-2018 CORTISOL, A.M. 24.7 ug/dL High 5.0 - 20.0 [facility] Comment on above: Performed By: #### C ARABELLA ####[id number] [place] [address] CORTISOL, P.M.on 03-31-2018 CORTISOL, P.M. 17.4 ug/dL High 2.5 - 10.0 [facility] Comment on above: Performed By: #### E MRAD ####NO LOCATION NEEDED CORTISOL, P.M. 31.3 ug/dL High 2.5 - 10.0 [facility] Comment on above: Performed By: #### E MRAD ####NO LOCATION NEEDED CORTISOL, P.M. 44.9 ug/dL High 2.5 - 10.0 [facility] Comment on above: Performed By: #### E [...] continued as q6hrs. Objective Data: Objective Information:T [id number]/8894% Date/Time03/31 4: 4: 4: 4: 4:07Range(35.8C - [...] Bolus) Injectable: 4000 unit(s) IntraVenous Push Every 2Gddjg0. Hydrocortisone Na Succinate Injectable: 25 mg IntraVenous Push Every 7Mompc53. Insulin Glargine (Lantus) Injectable: 20 unit(s) SubCutaneous Every 12Wbvuj01. Insulin Lispro (HumaLOG) Injectable: 12 unit(s) SubCutaneous 3 Times aDay Before Meals12. Insulin Lispro Mild Corrective Scale: unit(s) SubCutaneous 3 Times a DayBefore Meals13. Levothyroxine: 150 microgram(s) Oral Daily14. Mupirocin 2%: 0.5 application(s) Each Nostril 2 Times a Day15. Pantoprazole: 40 mg Oral Daily16. rOPINIRole: 6 mg Oral 17. Sodium Chloride 0.65% Nasal [place]: 2 spray(s) Each Nostril 2 Times aDay PRN Medications -- 1. Dextrose 50% in Water Injectable: 25 gram(s) IntraVenous Push Every 78Zahexte2. Glucagon Injectable: 1 mg IntraMuscular Every 15 Minutes3. Nitroglycerin SubLingual: 0.4 mg SubLingual Every 5 Minutes4. Polyethylene Glycol: 17 gram(s) Oral Daily Currently Suspended Medications -- 1. Hydrocortisone: 10 mg Oral 2. Hydrocortisone: 5 mg Oral 3. Hydrocortisone: 2.5 mg Oral Recent Lab Results: Results: I have reviewed these laboratory results: Glucose_POCT Trending View Qqihsh29-Add-1440 21:35:00 30-Mar-2018 17:24:00 30-Mar-2018 12:06:00 30-Mar-2018 07:46:00 29-Mar-2018 20:49:00Glucose-UDOS196 H 216 H 205 H 153 H 244 H Renal Function Panel Trending View Kmwmeu38-Ahw-6429 19:18:00 29-Mar-2018 19:58:00Glucose, Ijrxt594 H 237 QFF355 132 LK4.4 4.6YL579 99Bicarbonate, Serum23 19 LAnion Gap, Serum16 79OQF01 H 24 HCREAT1.68 H 1.32 HGFR-Non Qaqihuek56 A 54 AGFR- Loamvlkp67 A 65Calcium, Serum9.5 9.3Phosphorus, Serum4.5 4.2ALB4.1 3.9 Assessment and Plan:Assessment: Mr. Elkins is a 67 yo WM with no known history of CAD, who has a past medicalhistory of HTN, HLD, T2DM, Brigida's disease, hypothyroidism, COPD, AKASH onCPAP, prostate ca s/p prostatectomy in 2011, and psoriasis who was [facility], INCI service at [facility] from [facility] on 03/18 forCABG eval.Endocrine consulted fr evaluation of Ontario disease and treatment periop Patient was on supra-therapeutic dose of HCT 20-0-20 , fludrocortisone 0.1 ,mgdailyPatient has uncontrolled HTN and uncontrolled BSMost likely tomorrow (03/23) IVC filter placement 1. Ontario's Disease-- Fludrocortisone 0.05 mg 4 times weekly ( and friday)-- 03/31:CABG Today First case, patient given HCT 30 mg by mouth once at 5 am , Cortisollevel checked one hour later, HCt 25 mg IV q6hrs to be started as of NOW (6 am)and continued as [id number]--[place] Cortisol level q2 hrs after pm dose of HCT IV--Will follow 2. T2DM-- Patient received lantus 20 units instead of 30 yesterday in the evening--Pt having CABG today, to eb on insulin drip as per CICU protocol post op--Will follow Please page with questions [phone] Patient seen and examined, plan discussed with [...] patient (as noted in the above attestation) [id number] Electronic Signatures:Starr Quevedo) (Signed 02-Apr-2018 10:01)Authored: Signature/Cosignature/Attestat ionCo-Signer: Service, Subjective Data, Objective Data, Assessment and Plan,Signature/Cosignature/Att estationHasmukh Stephenson (Resident)) (Signed 31-Mar-2018 06:23)Authored: Service, Subjective Data, Objective Data, Assessment and Plan,Signature/Cosignature/Att estation Last Updated: 02-Apr-2018 10:01 by Starr Quevedo) Normal [facility] EMR ADDONon 03-31-2018 ADDON CONFIRMATION REQUEST REC'D Normal [facility] Comment on above: Performed By: #### E MRAD ####NO LOCATION NEEDED FIBRINOGENon 03-31-2018 FIBRINOGEN Canceled Normal [facility] Comment on above: Order Comment: TEST FIBRINOGEN WAS CANCELLED, 03/31/2018 14:47 ?Cancel Reason: Discontinued. Performed By: #### E MRAD ####NO LOCATION NEEDED FIBRINOGEN 244 mg/dL Normal 200 - 400 [facility] Comment on above: Performed By: #### F IB ####[id number] [place] [address] FIBRINOGEN 356 mg/dL Normal 200 - 400 [facility] Comment on above: Performed By: #### F IB ####[id number] [place] [address] GLUCOSE-POCTon 03-31-2018 Glucose mass conc 149 mg/dL High 74 - 99 [facility] Comment on above: Performed By: #### E MRAD ####NO LOCATION NEEDED Glucose mass conc 167 mg/dL High 74 - 99 [facility] Comment on above: Performed By: #### E MRAD ####NO LOCATION NEEDED Glucose mass conc 172 mg/dL High 74 - 99 [facility] Comment on above: Performed By: #### E MRAD ####NO LOCATION NEEDED Glucose mass conc 186 mg/dL High - 99 [facility] Comment on above: Performed By: #### E MRAD ####NO LOCATION NEEDED Glucose mass conc 191 mg/dL High 74 - 99 [facility] Comment on above: Performed By: #### E MRAD ####NO LOCATION NEEDED Glucose mass conc 210 mg/dL High 74 - 99 [facility] Comment on above: Performed By: #### G BECKY ####[id number] [place] [address] History and Physical - Arturamanda Vitale 03-31-2018 History and Physical - Critical Care Service:Critical Care Service: ServiceSICU Purple History of Present Illness:HPI:HPI: 67 yo M with HTN, DLD, T2DM, Addisson's, GERD, prostate ca s/pprostatectomy in 2011, hypothyroidism, psoriasis transferred to medicine at [facility] from [facility] on 03/18 for CABG eval Patient reports 2 month h/o intermittent exertional left sided chest painlasting less than 30 min, relieved with rest, with no other associatedsymptoms. He woke up 03/16 at 1AM with chest pressure associated with dyspnea,and his took him to [facility] where he was diagnosed with a PE,started on heparin gtt, then transferred to [facility]. There, hewas found to have a [...] 1.5 Vanco @ 0810, Cefuroxime 1.5g @ 0845/[facility] as above PSHcataract surgery, cholecystectomy, appendectomy, carpal tunnel release surgery,cystoscopy 3 weeks ago for microscopic hematuria, root canal 3 weeks ago.Prostatectomy 2011 FAMILY HISTORY [place], CHF, HTN, DM and DLD SOCIAL HISTORY quit smoking 20 years ago. Has an occasional beer, and denies any drug use Retired [employer] HOME MEDICATIONSaspirin 81 mg oral tablet, chewable: [...] a day (at bedtime). PRIOR IMAGINGCTA at [place]:Pulmonary emboli involving the bilateral lobar segmental, and severalsubsegmental branches (RUL, RML, RLL, FIDEL, LLL). LHC at [facility]:LAD prox: 30%LAD mid: 95%Diag 3rd: 99%RCA: 85 %PLV: 50%Circ: 95% TTE at [facility]:EF 60-65%Mild LA dialtionNo valvular abnormalities Comorbidities: Comorbid [...] intubated, sedated Objective:Objective Information: Objective Information T ZVKWLqD2Mdnso70.833968845/5994 %Date/Time03/31 4: 15: 4: 14: 15:00Range(35.8C - 36.4C ) (80 - 102 ) (18 - 20 ) (110 - 139 )/ (59 - 88 )(94% - 100% ) Vent Lmewvwsv10/13 14:67OutxvWVM90/13 14:11Rate Set (breaths/min)14105/31 14:11Tidal Volume Set (mL)73041/13 14:11PEEP (cm H2O)8105/31 14:11FiO2 (%)50 Vent Data03/31 14:11Ventilator IdentificationXL 7303/31 14:11Start Chjv59-Edc-906755/13 14:11Start Time14: 14:11Ventilator Days and Hours0 Hours Non-Kvvzwfdr44/13 14:11High Inspiratory Pressure (cm H2O)45 Physical Exam: [...] Succinate Injectable: 25 mg IntraVenous Push Every 0Pzloa4. Lidocaine 5% TransDermal: 1 patch TransDermal Every 24 Hours5. Pantoprazole Injectable: 40 mg IntraVenous Push Every 24 Hours PRN Medications -- 1. Bisacodyl Rectal: 10 mg Rectal Daily2. Calcium Chloride IVPB: 0.5 gram(s) IntraVenous Piggyback Every 8 Hours3. Calcium Chloride IVPB: 1 gram(s) IntraVenous Piggyback Every 8 Hours4. Dextrose 50% in Water Injectable: 25 gram(s) IntraVenous Push Every 42Ffenhjs3. Glucagon Injectable: 1 mg IntraMuscular Every 15 [...] 356 Recent Arterial Blood Gas Results 03/31/2018 07:71zL7407xY8.23dOE829TK707Kw se Excess-3.2Hofkfzgxeco64.6 Assessment and Plan:Other:Assessment: Assessment:67 year old with a history of CAD, HTN, HLD, DM2, Gerd, Ontario's, andhypothyroid presents from the OR s/p CABG [...] Proph:SCDsPPI G: LineRight IJ MAC w PACLeft Brach Rossi Seen with the critical care attending, Dr. Barnett: Continue SICU care. NED Espinal#[id number] Code Status: Code StatusFull Code Signatures/Attestation/Certifi cation:Critical Care PatientI have reviewed and evaluated the most recent data andresults, personally examined the patient, and formulated the [...] cationCo-Signer: Objective, Assessment and Plan,Signatures/Attestation/Ce Margot Walters (LOCKSTITCH BINDER-NED) (Signed 31-Mar-2018 16:14)Authored: Service, History of Present Illness, Comorbidities, Allergies,Medications Prior to Admission, Review of Systems, Objective, Assessment andPlan, Signatures/Attestation/Certifi cation Last Updated: 01-Apr-2018 08:00 by Abelino Klein) Normal [facility] MAGNESIUMon 03-31-2018 Magnesium mass conc 2.67 mg/dL High 1.60 - 2.40 [facility] Comment on above: Performed By: #### E MRAD ####NO LOCATION NEEDED MV FULL PANELon 03-31-2018 Anion gap 3 molar conc 12 mmol/L Normal 10 - 25 [facility] Comment on above: Performed By: #### E MRAD ####NO LOCATION NEEDED BASE EXCESS-BLOOD -1.2 mmol/L Normal [facility] Comment on above: Performed By: #### E MRAD ####NO LOCATION NEEDED CALCIUM,IONIZED 1.19 mmol/L Normal 1.10 - 1.33 [facility] Comment on above: Performed By: #### E MRAD ####NO LOCATION NEEDED Chloride molar conc 103 mmol/L Normal 98 - 107 [facility] Comment on above: Performed By: #### E MRAD ####NO LOCATION NEEDED Glucose mass conc 180 mg/dL High 74 - 99 [facility] Comment on above: Performed By: #### E MRAD ####NO LOCATION NEEDED Hematocrit Auto Volume Fraction (Bld) 34.0 % Low 41.0 - 52.0 [facility] Comment on above: Performed By: #### E MRAD ####NO LOCATION NEEDED HGB,CALCULATED 11.6 g/dL Low 13.5 - 17.5 [facility] Comment on above: Performed By: #### E MRAD ####NO LOCATION NEEDED Lactate molar conc 2.7 mmol/L High 0.4 - 2.0 [facility] Comment on above: Performed By: #### E MRAD ####NO LOCATION NEEDED Oxygen ppres (BldA) 41 mm[Hg] Normal [facility] Comment on above: Performed By: #### E MRAD ####NO LOCATION NEEDED PCO2 56 mmHg Normal [facility] Comment on above: Performed By: #### E MRAD ####NO LOCATION NEEDED pH (Bld) 7.28 [pH] Normal [facility] Comment on above: Performed By: #### E MRAD ####NO LOCATION NEEDED Potassium molar conc 5.1 mmol/L Normal 3.5 - 5.3 [facility] Comment on above: Performed By: #### E MRAD ####NO LOCATION NEEDED RBC Auto #/vol (Bld) 26.3 mmol/L Normal [facility] Comment on above: Performed By: #### E MRAD ####NO LOCATION NEEDED SO2 66 % Normal [facility] Comment on above: Performed By: #### E MRAD ####NO LOCATION NEEDED Sodium molar conc 136 mmol/L Normal 136 - 145 [facility] Comment on above: Performed By: #### E MRAD ####NO LOCATION NEEDED OPERATIVE REPORTon 8 OPERATIVE REPORT [facility] [place], [place] [address]Patient Name: DON ELKINSMRN: [id number]: 1Encounter Number: [id number] of Service: 03/31/2018Patient Location: [facility] [id number] Type: ISurgeon: Ana Egan Type: Operative ReportsPREOPERATIVE DIAGNOSIS: 1. Coronary artery disease.2. Ischemic heart disease.3. Non-ST segment elevation myocardial infarction.4. Recent pulmonary embolism, on anticoagulant therapy.5. Diabetes.6. Hypertension.7. Dyslipidemia.8. Obesity.9. [place] Heart Association class III.POSTOPERATIVE DIAGNOSIS: 1. Coronary artery disease.2. Ischemic heart disease.3. Non-ST segment elevation myocardial infarction.4. Recent pulmonary embolism, on anticoagulant therapy.5. Diabetes.6. Hypertension.7. Dyslipidemia.8. Obesity.9. [place] Heart Association class III.10. Status post coronary artery bypass grafting x3.OPERATION/PROCEDURE: 1. Extracorporeal circulation.2. Right greater saphenous vein endoscopic harvest.3. Left internal mammary artery pedicle harvest.4. Coronary artery bypass grafting x3; left internal mammary artery to left anterior descending artery, saphenous vein graft to proximal posterior descending artery, saphenous vein graft to diagonal artery.SURGEON: JHON ChrisT(S): ANESTHESIA: OPERATIVE PROCEDURE: The patient was taken [...] MD ESTTT: 04/06/2018 11:16 PM ESTDICTATION NUMBER: [id number] JOB NUMBER: [id number]:Kenneth Cheng MD, PhDElectronically Signed by Dr. Jc Gaston 04/10/2018 09:10:09 AM Normal [facility] Preop Checkliston 03-31-2018 Preop Checklist Preop Checklist:Preo p Checklist: Procedure Typecabg NPO [id number] ID Band Onyes Allergy Bandno known allergies [...] Age Appropriateyes Emotional Statuscalm Electronic Signatures:Christine Martines ([facility]) (Signed 31-Mar-2018 06:10)Authored: Preop Checklist Last Updated: 31-Mar-2018 06:10 by Christine Martines ([facility]) Normal [facility] RENAL FUNCTION PANELon 03-31 Albumin mass conc 3.9 g/dL Normal 3.4 - 5.0 [facility] Comment on above: Performed By: #### E MRAD ####NO LOCATION NEEDED Anion gap 3 molar conc 16 mmol/L Normal 10 - 20 [facility] Comment on above: Performed By: #### E MRAD ####NO LOCATION NEEDED Calcium mass conc 8.8 mg/dL Normal 8.6 - 10.6 [facility] Comment on above: Performed By: #### E MRAD ####NO LOCATION NEEDED Chloride molar conc 102 mmol/L Normal 98 - 107 [facility] Comment on above: Performed By: #### E MRAD ####NO LOCATION NEEDED Creatinine mass conc 1.35 mg/dL High 0.50 - 1.30 [facility] Comment on above: Performed By: #### E MRAD ####NO LOCATION NEEDED GFR- AM. 64 mL/min/1.73m2 Normal >60 [facility] Comment on above: Result Comment: CALC ULATIONS OF ESTIMATED GFR ARE PERFORMED USING THE MDRD STUDY EQUATION FOR THE IDMS-TRACEABLE CREATININE METHODS. CLIN CHEM 2007;53:766-72 Performed By: #### E MRAD ####NO LOCATION NEEDED GFR-NON AM. 53 mL/min/1.73m2 Abnormal >60 [facility] Comment on above: Performed By: #### E MRAD ####NO LOCATION NEEDED Glucose mass conc 169 mg/dL High 74 - 99 [facility] Comment on above: Performed By: #### E MRAD ####NO LOCATION NEEDED HCO3 molar conc (Bld) 24 mmol/L Normal 21 - 32 [facility] Comment on above: Performed By: #### E MRAD ####NO LOCATION NEEDED Phosphate mass conc 3.9 mg/dL Normal 2.5 - 4.9 [facility] Comment on above: Result Comment: The performance characteristics of phosphorus testing in heparinized plasma have been validated by the individual laboratory site where testing is performed. Testing on heparinized plasma is not approved by the FDA; however, such approval is not necessary. Performed By: #### E MRAD ####NO LOCATION NEEDED Potassium molar conc 5.0 mmol/L Normal 3.5 - 5.3 [facility] Comment on above: Performed By: #### E MRAD ####NO LOCATION NEEDED Sodium molar conc 137 mmol/L Normal 136 - 145 [facility] Comment on above: Performed By: #### E MRAD ####NO LOCATION NEEDED Urea nitrogen mass conc 22 mg/dL Normal 6 - 23 [facility] Comment on above: Performed By: #### E MRAD ####NO LOCATION NEEDED Albumin mass conc 4.1 g/dL Normal 3.4 - 5.0 [facility] Comment on above: Performed By: #### E MRAD ####NO LOCATION NEEDED Anion gap 3 molar conc 19 mmol/L Normal 10 - 20 [facility] Comment on above: Performed By: #### E MRAD ####NO LOCATION NEEDED Calcium mass conc 9.4 mg/dL Normal 8.6 - 10.6 [facility] Comment on above: Performed By: #### E MRAD ####NO LOCATION NEEDED Chloride molar conc 103 mmol/L Normal 98 - 107 [facility] Comment on above: Performed By: #### E MRAD ####NO LOCATION NEEDED Creatinine mass conc 1.50 mg/dL High 0.50 - 1.30 [facility] Comment on above: Performed By: #### E MRAD ####NO LOCATION NEEDED GFR- AM. 57 mL/min/1.73m2 Abnormal >60 [facility] Comment on above: Result Comment: CALC ULATIONS OF ESTIMATED GFR ARE PERFORMED USING THE MDRD STUDY EQUATION FOR THE IDMS-TRACEABLE CREATININE METHODS. CLIN CHEM 2007;53:766-72 Performed By: #### E MRAD ####NO LOCATION NEEDED GFR-NON AM. 47 mL/min/1.73m2 Abnormal >60 [facility] Comment on above: Performed By: #### E MRAD ####NO LOCATION NEEDED Glucose mass conc 196 mg/dL High 74 - 99 [facility] Comment on above: Performed By: #### E MRAD ####NO LOCATION NEEDED HCO3 molar conc (Bld) 21 mmol/L Normal 21 - 32 [facility] Comment on above: Performed By: #### E MRAD ####NO LOCATION NEEDED Phosphate mass conc 3.2 mg/dL Normal 2.5 - 4.9 [facility] Comment on above: Result Comment: The performance characteristics of phosphorus testing in heparinized plasma have been validated by the individual laboratory site where testing is performed. Testing on heparinized plasma is not approved by the FDA; however, such approval is not necessary. Performed By: #### E MRAD ####NO LOCATION NEEDED Potassium molar conc 5.2 mmol/L Normal 3.5 - 5.3 [facility] Comment on above: Performed By: #### E MRAD ####NO LOCATION NEEDED Sodium molar conc 138 mmol/L Normal 136 - 145 [facility] Comment on above: Performed By: #### E MRAD ####NO LOCATION NEEDED Urea nitrogen mass conc 23 mg/dL Normal 6 - 23 [facility] Comment on above: Performed By: #### E MRAD ####NO LOCATION NEEDED Albumin mass conc Canceled Normal [facility] Comment on above: Order Comment: TEST RENAL FUNCTION PANEL WAS CANCELLED, 03/31/2018 14:47 ?Cancel Reason:Discontinued. Performed By: #### E MRAD ####NO LOCATION NEEDED Anion gap 3 molar conc Canceled Normal [facility] Comment on above: Order Comment: TEST RENAL FUNCTION PANEL WAS CANCELLED, 03/31/2018 14:47 ?Cancel Reason:Discontinued. Performed By: #### E MRAD ####NO LOCATION NEEDED Calcium mass conc Canceled Normal [facility] Comment on above: Order Comment: TEST RENAL FUNCTION PANEL WAS CANCELLED, 03/31/2018 14:47 ?Cancel Reason:Discontinued. Performed By: #### E MRAD ####NO LOCATION NEEDED Chloride molar conc Canceled Normal [facility] Comment on above: Order Comment: TEST RENAL FUNCTION PANEL WAS CANCELLED, 03/31/2018 14:47 ?Cancel Reason:Discontinued. Performed By: #### E MRAD ####NO LOCATION NEEDED Creatinine mass conc Canceled Normal [facility] Comment on above: Order Comment: TEST RENAL FUNCTION PANEL WAS CANCELLED, 03/31/2018 14:47 ?Cancel Reason:Discontinued. Performed By: #### E MRAD ####NO LOCATION NEEDED GFR- AM. Canceled Normal [facility] Comment on above: Order Comment: TEST RENAL FUNCTION PANEL WAS CANCELLED, 03/31/2018 14:47 ?Cancel Reason:Discontinued. Result Comment: CALC ULATIONS OF ESTIMATED GFR ARE PERFORMED USING THE MDRD STUDY EQUATION FOR THE IDMS-TRACEABLE CREATININE METHODS. CLIN CHEM 2007;53:766-72 Performed By: #### E MRAD ####NO LOCATION NEEDED GFR-NON AM. Canceled Normal [facility] Comment on above: Order Comment: TEST RENAL FUNCTION PANEL WAS CANCELLED, 03/31/2018 14:47 ?Cancel Reason:Discontinued. Performed By: #### E MRAD ####NO LOCATION NEEDED Glucose mass conc Canceled Normal [facility] Comment on above: Order Comment: TEST RENAL FUNCTION PANEL WAS CANCELLED, 03/31/2018 14:47 ?Cancel Reason:Discontinued. Performed By: #### E MRAD ####NO LOCATION NEEDED HCO3 molar conc (Bld) Canceled Normal [facility] Comment on above: Order Comment: TEST RENAL FUNCTION PANEL WAS CANCELLED, 03/31/2018 14:47 ?Cancel Reason:Discontinued. Performed By: #### E MRAD ####NO LOCATION NEEDED Phosphate mass conc Canceled Normal [facility] Comment on above: Order Comment: TEST RENAL [...] LOCATION NEEDED Potassium molar conc Canceled Normal [facility] Comment on above: Order Comment: TEST RENAL FUNCTION PANEL WAS CANCELLED, 03/31/2018 14:47 ?Cancel Reason:Discontinued. Performed By: #### E MRAD ####NO LOCATION NEEDED Sodium molar conc Canceled Normal [facility] Comment on above: Order Comment: TEST RENAL FUNCTION PANEL WAS CANCELLED, 03/31/2018 14:47 ?Cancel Reason:Discontinued. Performed By: #### E MRAD ####NO LOCATION NEEDED Urea nitrogen mass conc Canceled Normal [facility] Comment on above: Order Comment: TEST RENAL [...] Electronically signed by: EDYTA ARIAS MD Normal [facility] ANTICARDIOLIPIN ABon 018 CAROLYN IGM 0.2 MPL U/mL Normal 0.0 - 20.0 [facility] Comment on above: Result Comment: Elev ated levels of IgM anti-cardiolipin on 2 occasions at least 12 weeks apart are laboratory criteria for anti-phospholipid syndrome according to an international consensus (J Thromb Haemost 2006 4:295). IgM anti-cardiolipin tends to give false positive results in the low positive range, especially in the presence of rheumatoid factor or cryoglobulins. Performed By: #### A CA2 ####[id number] [place] [address] CAROLYN IGA 0.5 APL U/mL Normal 0.0 - 20.0 [facility] Comment on above: Result Comment: Elev ated levels of IgA anti-cardiolipin have not been included in the laboratory criteria for anti-phospholipid syndrome according to an international consensus (J Thromb Haemost 2006 4:295). It may be helpful in identifying subgroups of patients at risk for specific clinical manifestations of anti-phospholipid syndrome. Performed By: #### A CA2 ####[id number] [place] [address] CAROLYN IGG <1.6 Normal 0.0 - 20.0 [facility] Comment on above: Result Comment: Elev ated levels of IgG anti-cardiolipin on 2 occasions at least 12 weeks apart are laboratory criteria for anti-phospholipid syndrome according to an international consensus (J Thromb Haemost 2006 4:295). Performed By: #### A CA2 ####[id number] [place] [address] BETA 2 GLYCOPROTEIN ABon B2 GLYCOPROTEIN AB IGM 0.3 U/mL Normal 0.0 - 20.0 [facility] Comment on above: Result Comment: Elev ated [...] or cryoglobulins. Performed By: #### B 2GLY ####[id number] [place] [address] B2 GLYCOPROTEIN AB IGA <0.6 Normal 0.0 - 20.0 [facility] Comment on above: Result Comment: Elev ated [...] anti-phospholipid syndrome. Performed By: #### B 2GLY ####[id number] [place] [address] B2 GLYCOPROTEIN AB IGG <1.4 Normal 0.0 - 20.0 [facility] Comment on above: Result Comment: Elev ated levels of IgG anti-Beta 2 Glycoprotein-I on 2 occasions at least 12 weeks apart are laboratory criteria for anti-phospholipid syndrome according to an international consensus (J Thromb Haemost 2006 4:295). Performed By: #### B 2GLY ####[id number] [place] [address] CBCon 03-30-2018 Erythrocyte distribution width Auto Ratio (RBC) 12.8 % Normal 11.5 - 14.5 [facility] Comment on above: Performed By: #### C BC ####[id number] [place] [address] Hematocrit Auto Volume Fraction (Bld) 43.0 % Normal 41.0 - 52.0 [facility] Comment on above: Performed By: #### C BC ####[id number] [place] [address] Hemoglobin mass conc (Bld) 14.5 g/dL Normal 13.5 - 17.5 [facility] Comment on above: Performed By: #### C BC ####[id number] [place] [address] MCHC Auto mass conc (RBC) 33.7 g/dL Normal 32.0 - 36.0 [facility] Comment on above: Performed By: #### C BC ####[id number] [place] [address] MCV Auto Entitic volume (RBC) 92 fL Normal 80 - 100 [facility] Comment on above: Performed By: #### C BC ####[id number] [place] [address] Nucleated RBC/100 WBC Ratio (Bld) 0.0 /100 WBC Normal 0.0-0.0 [facility] Comment on above: Performed By: #### C BC ####[id number] [place] [address] Platelets Auto #/vol (Bld) 238 10*3/uL Normal 150 - 450 [facility] Comment on above: Performed By: #### C BC ####[id number] [place] [address] RBC Auto #/vol (Bld) 4.66 x10E12/L Normal 4.50 - 5.90 [facility] Comment on above: Performed By: #### C BC ####[id number] [place] [address] WBC Auto #/vol (Bld) 8.1 10*3/uL Normal 4.4 - 11.3 [facility] Comment on above: Performed By: #### C BC ####[id number] [place] [address] Erythrocyte distribution width Auto Ratio (RBC) 12.8 % Normal 11.5 - 14.5 [facility] Comment on above: Performed By: #### C BC ####[id number] [place] [address] Hematocrit Auto Volume Fraction (Bld) 41.1 % Normal 41.0 - 52.0 [facility] Comment on above: Performed By: #### C BC ####[id number] [place] [address] Hemoglobin mass conc (Bld) 13.7 g/dL Normal 13.5 - 17.5 [facility] Comment on above: Performed By: #### C BC ####[id number] [place] [address] MCHC Auto mass conc (RBC) 33.3 g/dL Normal 32.0 - 36.0 [facility] Comment on above: Performed By: #### C BC ####[id number] [place] [address] MCV Auto Entitic volume (RBC) 93 fL Normal 80 - 100 [facility] Comment on above: Performed By: #### C BC ####[id number] [place] [address] Nucleated RBC/100 WBC Ratio (Bld) 0.0 /100 WBC Normal 0.0-0.0 [facility] Comment on above: Performed By: #### C BC ####[id number] [place] [address] Platelets Auto #/vol (Bld) 233 10*3/uL Normal 150 - 450 [facility] Comment on above: Performed By: #### C BC ####[id number] [place] [address] RBC Auto #/vol (Bld) 4.43 x10E12/L Low 4.50 - 5.90 [facility] Comment on above: Performed By: #### C BC ####[id number] [id number] WBC Auto #/vol (Bld) 9.2 10*3/uL Normal 4.4 - 11.3 [facility] Comment on above: Performed By: #### C BC ####[id number] [id number] Clinical Intervention - Jude dey 03-30-2018 Clinical Intervention - Pharmacy Pharmacist's Clinical Intervention:Active and Pending Medications:Nitroglycerin 50 mg/ D5W 250 mL Infusion, Solution (TRIDIL)IntraVenous Initial Admin Rate = 3 mL/hr mcg/minNotes from Pharmacy: Initial DOSE Rate = 10 mcg/min = 3 mL/hr., 30-Mar-2018,Active Pharmacist intervention: Contacted physicianType of recommendation: Contacted CADDY PACKER to clarify lack of titration orders. Shestates since nursing cannot titrate on their own she omitted titrationparameters. She will enter new orders as titration is necessaryIs this intervention medication reconciliation related: NoExpected outcome and basis: Order clarified or correctedTime Required: 1 - 5 minutes Electronic Signatures:Soni Whitman ([facility]) (Signed 30-Mar-2018 12:11)Authored: Pharmacist's Clinical Intervention Last Updated: 30-Mar-2018 12:11 by Soni Whitman ([facility]) Normal [facility] Daily Progress Note-Cardiolo augustinon 03-30-2018 Protein mass conc Service: Cardiology Subjective [...] PO at 0500, cortisol level at 0700, jfqxskrwjdxrzo84xp IV at 0800 and through surgery. Endocrine needs to be informed of updatesfor Brigida's management. - OR tomorrow, 2nd case- glargine 20 units tonight- trend troponins On day of CABG surgery 03/31 Hydrocortisone 30mg PO 0500Check Cortisol level at 0700ALSOStart Hydrocortisone 25mg IV q6h starting at 0800Call Endocrine on the day of surgery to keep them closely involved Objective Data: Objective Information: T WMPCVhG8Gcuvw46.88733828/6596% Date/Time03/30 11: 13: 11: 13: 11:14Range(35.8C - 36.1C ) (74 - 91 ) (17 - 18 ) (120 - 159 )/ (63 - 92 ) (92%- 99% ) Ziruuub26/12 3:51: Weight in kg (Weight (kg)) 107.8105/30 3:51: Weight in lbs ((lbs)) 237.8 Physical Exam: Constitutional: Resting in bed, NADHead/Neck: No JVDRespiratory/Thorax: CTABCardiovascular: RRR, S1 O4Llbaxymtpzqyuumt: soft, NT/NDExtremities: No LE edemaNeurological: alert and oriented a3Qerwggheyfwqz: Appropriate mood and behaviorSkin: psoriasis plaque over [...] Bolus) Injectable: 4000 unit(s) IntraVenous Push Every 6Vqrmi9. Hydrocortisone: 10 mg Oral 10. Hydrocortisone: 5 mg Oral 11. Hydrocortisone: 2.5 mg Oral 12. Insulin Glargine (Lantus) Injectable: 20 unit(s) SubCutaneous Every 62Btpbr34. Insulin Lispro (HumaLOG) Injectable: 12 unit(s) SubCutaneous 3 Times aDay Before Meals14. Insulin Lispro Mild Corrective Scale: unit(s) SubCutaneous 3 Times a DayBefore Meals15. Levothyroxine: 150 microgram(s) Oral Daily16. Mupirocin 2%: 0.5 application(s) Each Nostril 2 Times a Day17. Pantoprazole: 40 mg Oral Daily18. rOPINIRole: 6 mg Oral 19. Sodium Chloride 0.65% Nasal [place]: 2 spray(s) Each Nostril 2 Times aDay PRN Medications -- 1. Dextrose 50% in Water Injectable: 25 gram(s) IntraVenous Push Every 36Svodgnf4. Glucagon Injectable: 1 mg IntraMuscular Every 15 Minutes3. Nitroglycerin SubLingual: 0.4 mg SubLingual Every 5 Minutes4. Polyethylene Glycol: 17 gram(s) Oral Daily Recent Lab Results: Results: I have reviewed these laboratory results: Glucose_POCT Trending View Mgckco35-Wxb-1912 12:06:00 30-Mar-2018 07:46:00Glucose-OHFS728 H 153 H Troponin I, Serum Trending View Nfvbsk27-Swu-3409 09:37:00 30-Mar-2018 03:58:00Troponin I, Serum0.94 H 0.54 HHLab Comment: TROP CALLED RB TO SWEETIE TRACY, 03/30/2018 07:28 Radiology Results: Results: Conclusion:Electrocardiogram 12 Lead [Mar 30 2018 11:30AM] Assessment and Plan:Assessment:67 yo M with HTN, DLD, T2DM, Addisson's, GERD, prostate ca s/p prostatectomy vs6241, hypothyroidism, psoriasis, and most recently diagnosed with a PE andmultivessel CAD transferred to cardiology at [facility] from [facility] 03/18 for CABG eval. Multiple PEs- [...] 40 mg- Cardiac Cath uploaded: 03/16 at [facility] LM: 10-20%, LAD prox: 30%, LAD mid:95%, Diag 3rd: 99%, RCA: 85 %, PLV: 50%, Circ: 95%- Plan for CABG with Dr. Gaston on 03/31, 2nd case- early AM of 03/30, started having chest pressure, resolved with nitro gtt dc65hlx/min- troponins: <0.02 -> 0.54 -> 0.94 s/p [...] with Dr. Rothman Signature/Cosignature/Attestat ion:Provider/Team Contact Info-Pager [id number]/ Additional FindingsUnstable angina overnight that resolved with IV nitroglycerin, chest and rightarm pain went to 0/[address] gaston notified, but unable to do surgerysooner. CICU and HF ICU at capacity. If chest pain recurs, may need to beconsidered for IABP . Plan for now is for CABG 03/31/2018. Low threshold forICU transfer.Patent with [place]'s and appreciate detailed steroid management plan perEndocrinology Electronic Signatures:Latisha Rothman) (Signed 30-Mar-2018 18:09)Authored: Signature/Cosignature/Attestat ionCo-Signer: Service, Subjective Data, Objective Data, Assessment and Plan,Signature/Cosignature/Att estationKate Ayaal ([employer]) (Signed 30-Mar-2018 15:06)Authored: Service, Subjective Data, Objective Data, Assessment and Plan,Signature/Cosignature/Att estation Last Updated: 30-Mar-2018 18:09 by Latisha Rothman) Normal [facility] Daily Progress Note-Endocrin ologyon 03-30-2018 Protein mass conc Consult Type: subseq uent visit/care Service: Endocrinology Subjective Data:DON ELKINS is a 67 year old Male who is Hospital Day # 13. Objective Data: Objective Information:T JQYUMlF9Atppf96.66026667/6596% Date/Time03/30 11: 13: 11: 13: 11:14Range(35.8C - [...] Bolus) Injectable: 4000 unit(s) IntraVenous Push Every 5Wxfyx7. Hydrocortisone: 10 mg Oral 10. Hydrocortisone: 5 mg Oral 11. Hydrocortisone: 2.5 mg Oral 12. Insulin Glargine (Lantus) Injectable: 20 unit(s) SubCutaneous Every 22Ulvxx85. Insulin Lispro (HumaLOG) Injectable: 12 unit(s) SubCutaneous 3 Times aDay Before Meals14. Insulin Lispro Mild Corrective Scale: unit(s) SubCutaneous 3 Times a DayBefore Meals15. Levothyroxine: 150 microgram(s) Oral Daily16. Mupirocin 2%: 0.5 application(s) Each Nostril 2 Times a Day17. Pantoprazole: 40 mg Oral Daily18. rOPINIRole: 6 mg Oral 19. Sodium Chloride 0.65% Nasal [place]: 2 spray(s) Each Nostril 2 Times aDay PRN Medications -- 1. Dextrose 50% in Water Injectable: 25 gram(s) IntraVenous Push Every 95Smnpncc3. Glucagon Injectable: 1 mg IntraMuscular Every 15 Minutes3. Nitroglycerin SubLingual: 0.4 mg SubLingual Every 5 Minutes4. Polyethylene Glycol: 17 gram(s) Oral Daily Recent Lab Results: Results: I have reviewed these laboratory results: Glucose_POCT Trending View Gcyavz81-Fzg-3332 12:06:00 30-Mar-2018 07:46:00 29-Mar-2018 20:49:00 29-Mar-2018 17:04:00 29-Mar-2018 13:15:00 29-Mar-2018 07:09:00 55-Kbf-165729:50:00 28-Mar-2018 16:38:00Glucose-XTVH036 H 153 H 244 H 258 H 217 H 186 H 271H 363 H Renal Function Panel Trending View Ywmjra94-Ojp-4844 19:58:00 28-Mar-2018 21:29:00Glucose, Zebvh717 H 220 BQH109 L 139K4.6 4.5CL99 103Bicarbonate, Serum19 L 27Anion Gap, Serum19 16WND96 H 68SBOSD6.32 H 1.44 HGFR-Non Hrqdnsbz41 A 49 AGFR- Qiarmrni33 59 ACalcium, Serum9.3 9.5Phosphorus, Serum4.2 4.0ALB3.9 4.0 Assessment and Plan:Assessment: Mr. Elkins is a 67 yo WM with no known history of CAD, who has a past medicalhistory of HTN, HLD, T2DM, [place]'s disease, hypothyroidism, COPD, AKASH onCPAP, prostate ca s/p prostatectomy in 2011, and psoriasis who [facility], [facility] service at [facility] from [facility] on 03/18 forWALTER youngal.Endocrine consulted fr evaluation of Brigida disease [...] then continue Hydrocortisone as 25 mg IV o6wzsctvuqntybo as of 8 am. 2. T2DM-- Decrease lantus to 20 units tonight-- Lispro to 12 units TIDAC to be held off after dinner time dose tonight-- Continue ISS 2 units for every 50 above 150-- POCT AC and qHs-- Hypoglycemia protocol--Diabetic diet--will follow Please page with questions [phone] Patient seen and examined, plan discussed with [...] patient (as noted in the above attestation) [id number] Electronic Signatures:Starr Quevedo) (Signed 31-Mar-2018 10:06)Authored: Signature/Cosignature/Attestat ionCo-Signer: Service, Subjective Data, Objective Data, Assessment and Plan,Signature/Cosignature/Att estationHasmukh Stephenson (Resident)) (Signed 30-Mar-2018 15:28)Authored: Service, Subjective Data, Objective Data, Assessment and Plan,Signature/Cosignature/Att estation Last Updated: 31-Mar-2018 10:06 by Starr Quevedo) Normal [facility] GLUCOSE-POCTon 03-30-2018 Glucose mass conc 207 mg/dL High 74 - 99 [facility] Comment on above: Performed By: #### G BECKY ####[id number] [place] [address] Glucose mass conc 216 mg/dL High 74 - 99 [facility] Comment on above: Performed By: #### G BECKY ####[id number] [place] [address] Glucose mass conc 205 mg/dL High 74 - 99 [facility] Comment on above: Performed By: #### G BECKY ####[id number] [place] [address] Glucose mass conc 153 mg/dL High 74 - 99 [facility] Comment on above: Performed By: #### G BECKY ####[id number] [place] [address] HEPARIN ASSAY,UFHon 03-30-20 18 HEPARIN ASSAY,UFH 0.4 IU/mL Normal [facility] Comment on above: Result Comment: The therapeutic reference range for UFH may be either 0.3-0.6 IU/mL or 0.3-0.7 IU/mL based on the clinical setting for anticoagulant therapy and the associated nomogram used. For heparin dosing guidelines based on clinical scenario and Heparin Assay results, please refer to local Pharmacy and the [facility] Guidelines for Anticoagulation therapy available on the [facility] intranet at:https://[facility].org/Pharmacy/Pages/[place]_Guidelines_for_Anticoagu.aspx Performed By: #### H AUF ####[id number] [place] [address] LUPUS ANTICOAG. WITH INTERPR ETATION[JACK]on 03-30-2018 LA INTERPRETATION SEE BELOW Normal [facility] Comment on above: Result Comment: No e [...] individual patient. Performed By: #### L AI ####[id number] [place] [address] SCT CONFIRMATION 1.10 RATIO Normal [facility] Comment on above: Performed By: #### L AI ####[id number] [id number] SCT SCREEN 0.87 RATIO Normal [facility] Comment on above: Performed By: #### L AI ####[id number] [place] [address] SCT TEST RATIO 0.79 RATIO Normal <=1.16 [facility] Comment on above: Performed By: #### L AI ####[id number] [place] [address] DRVVT CONFIRMATION 0.98 RATIO Normal [facility] Comment on above: Performed By: #### L AI ####[id number] [place] [address] DRVVT SCREEN 1.02 RATIO Normal [facility] Comment on above: Performed By: #### L AI ####[id number] [place] [address] DRVVT TEST RATIO 1.03 RATIO Normal <=1.20 [facility] Comment on above: Performed By: #### L AI ####[id number] [place] [address] RENAL FUNCTION PANELon 03-30 Albumin mass conc 4.1 g/dL Normal 3.4 - 5.0 [facility] Comment on above: Performed By: #### R ENAL ####[id number] [place] [address] Anion gap 3 molar conc 16 mmol/L Normal 10 - 20 [facility] Comment on above: Performed By: #### R ENAL ####[id number] [place] [address] Calcium mass conc 9.5 mg/dL Normal 8.6 - 10.6 [facility] Comment on above: Performed By: #### R ENAL ####[id number] [place] [address] Chloride molar conc 101 mmol/L Normal 98 - 107 [facility] Comment on above: Performed By: #### R ENAL ####[id number] [place] [address] Creatinine mass conc 1.68 mg/dL High 0.50 - 1.30 [facility] Comment on above: Performed By: #### R ENAL ####[id number] [place] [address] GFR- AM. 50 mL/min/1.73m2 Abnormal >60 [facility] Comment on above: Result Comment: CALC ULATIONS OF ESTIMATED GFR ARE PERFORMED USING THE MDRD STUDY EQUATION FOR THE IDMS-TRACEABLE CREATININE METHODS. CLIN CHEM 2007;53:766-72 Performed By: #### R ENAL ####[id number] [place] [address] GFR-NON AM. 41 mL/min/1.73m2 Abnormal >60 [facility] Comment on above: Performed By: #### R ENAL ####[id number] [place] [address] Glucose mass conc 193 mg/dL High 74 - 99 [facility] Comment on above: Performed By: #### R ENAL ####[id number] [place] [address] HCO3 molar conc (Bld) 23 mmol/L Normal 21 - 32 [facility] Comment on above: Performed By: #### R ENAL ####[id number] [place] [address] Phosphate mass conc 4.5 mg/dL Normal 2.5 - 4.9 [facility] Comment on above: Result Comment: The performance characteristics of phosphorus testing in heparinized plasma have been validated by the individual laboratory site where testing is performed. Testing on heparinized plasma is not approved by the FDA; however, such approval is not necessary. Performed By: #### R ENAL ####[id number] [place] [address] Potassium molar conc 4.4 mmol/L Normal 3.5 - 5.3 [facility] Comment on above: Performed By: #### R ENAL ####[id number] [place] [address] Sodium molar conc 136 mmol/L Normal 136 - 145 [facility] Comment on above: Performed By: #### R ENAL ####[id number] [place] [address] Urea nitrogen mass conc 24 mg/dL High 6 - 23 [facility] Comment on above: Performed By: #### R ENAL ####[id number] [id number] TROPONIN Ion 03-30-2018 Troponin I.cardiac mass conc 0.64 ng/mL High 0.00 - 0.03 [facility] Comment on above: Result Comment: LESS THAN [...] methodology at [facility] than at [facility]. Direct result comparisons should onlybe made within the same method.. Patients receiving more than 5 mg/day of biotin may have interference in test results. A sample should be taken no sooner than eight hours after previous dose. Contact [phone] for additional information.This is a critical result.Per Laboratory policy, critical results for this testonly qualify to the call list once per 24 hours. Performed By: #### T ROP2 ####[id number] [id number] Troponin I.cardiac mass conc 0.94 ng/mL High 0.00 - 0.03 [facility] Comment on above: Result Comment: LESS THAN [...] methodology at [facility] than at [facility]. Direct result comparisons should onlybe made within the same method.. Patients receiving more than 5 mg/day of biotin may have interference in test results. A sample should be taken no sooner than eight hours after previous dose. Contact [phone] for additional information.This is a critical result.Per Laboratory policy, critical results for this testonly qualify to the call list once per 24 hours. Performed By: #### T ROP2 ####[id number] [place] [address] Troponin I.cardiac mass conc 0.54 ng/mL Critically high 0.00 - 0.03 [facility] Comment on above: Order Comment: TROP CALLED RB TO SWEETIE MOLINA, 03/30/2018 07:28 Result Comment: LESS THAN 0.04 [...] methodology at [facility] than at [facility]. Direct result comparisons should onlybe made within the same method.. Patients receiving more than 5 mg/day of biotin may have interference in test results. A sample should be taken no sooner than eight hours after previous dose. Contact [phone] for additional information.TROP CALLED RB TO SWEETIE MOLINA, 03/30/2018 07:28 Performed By: #### T ROP2 ####[id number] [place] [address] Troponin I.cardiac mass conc ng/mL Normal 0.00 - 0.03 [facility] Comment on above: Result Comment: LESS THAN [...] methodology at [facility] than at [facility]. Direct result comparisons should onlybe made within the same method.. Patients receiving more than 5 mg/day of biotin may have interference in test results. A sample should be taken no sooner than eight hours after previous dose. Contact [phone] for additional information. Performed By: #### T ROP2 ####[id number] [place] [address] TYPE + SCREENon 03-30-2018 ABO TYPE A Normal [facility] Comment on above: Performed By: #### T +S ####[id number] [place] [address] RH TYPE Positive Normal [facility] Comment on above: Performed By: #### T +S ####[id number] [id number] CBCon 03-29-2018 Erythrocyte distribution width Auto Ratio (RBC) 12.7 % Normal 11.5 - 14.5 [facility] Comment on above: Performed By: #### C BC ####[id number] [place] [address] Hematocrit Auto Volume Fraction (Bld) 40.1 % Low 41.0 - 52.0 [facility] Comment on above: Performed By: #### C BC ####[id number] [place] [address] Hemoglobin mass conc (Bld) 13.6 g/dL Normal 13.5 - 17.5 [facility] Comment on above: Performed By: #### C BC ####[id number] [id number] MCHC Auto mass conc (RBC) 33.9 g/dL Normal 32.0 - 36.0 [facility] Comment on above: Performed By: #### C BC ####[id number] [place] [address] MCV Auto Entitic volume (RBC) 92 fL Normal 80 - 100 [facility] Comment on above: Performed By: #### C BC ####[id number] [place] [address] Nucleated RBC/100 WBC Ratio (Bld) 0.0 /100 WBC Normal 0.0-0.0 [facility] Comment on above: Performed By: #### C BC ####[id number] [place] [address] Platelets Auto #/vol (Bld) 232 10*3/uL Normal 150 - 450 [facility] Comment on above: Performed By: #### C BC ####[id number] [place] [address] RBC Auto #/vol (Bld) 4.37 x10E12/L Low 4.50 - 5.90 [facility] Comment on above: Performed By: #### C BC ####[id number] [place] [address] WBC Auto #/vol (Bld) 9.1 10*3/uL Normal 4.4 - 11.3 [facility] Comment on above: Performed By: #### C BC ####[id number] [place] [address] Daily Progress Note-Cardiosandra chavez 03-29-2018 Protein mass conc Service: Cardiology Subjective Data:DON ELKINS is a 67 year old Male who is Hospital Day # 12. Additional Information: Resting in bed, has been ambulating in halls, hypercoagulable work up pending - plan for OR Saturday 03/31- c/w Heparin gtt Objective Data: Objective Information:T [id number]/9095% Date/Time03/29 12: 12: 12: 12: 12:00Range(36C - 36.4C ) (67 - 92 ) (18 - 20 ) (131 - 161 )/ (70 - 93 ) (92% -96% ) Pain with Activity reported at 03/29 8:00: 0Pain at Rest reported at 03/29 8:00: 0 Rwahhnm74/11 4:20: Weight in kg (Weight (kg)) 107.7105/29 4:20: Weight in lbs ((lbs)) 237.4 Physical Exam: Constitutional: Resting in bed, NADHead/Neck: No JVDRespiratory/Thorax: CTABCardiovascular: RRR, S1 Z7Ciswxpeywxsgyqrc: soft, NT/NDExtremities: No LE edemaNeurological: alert and oriented j9Olisyielamndk: Appropriate mood and behaviorSkin: psoriasis plaque over [...] Bolus) Injectable: 4000 unit(s) IntraVenous Push Every 3Nwmsu2. Hydrocortisone: 10 mg Oral 9. Hydrocortisone: 5 mg Oral 10. Hydrocortisone: 2.5 mg Oral 11. Insulin Glargine (Lantus) Injectable: 30 unit(s) SubCutaneous Every 14Axdmj14. Insulin Lispro (HumaLOG) Injectable: 12 unit(s) SubCutaneous 3 Times aDay Before Meals13. Insulin Lispro Mild Corrective Scale: unit(s) SubCutaneous 3 Times a DayBefore Meals14. Levothyroxine: 150 microgram(s) Oral Daily15. Mupirocin 2%: 0.5 application(s) Each Nostril 2 Times a Day16. Pantoprazole: 40 mg Oral Daily17. rOPINIRole: 6 mg Oral 18. Sodium Chloride 0.65% Nasal [place]ine: 2 spray(s) Each Nostril 2 Times aDay PRN Medications -- 1. Dextrose 50% in Water Injectable: 25 gram(s) IntraVenous Push Every 86Eoctswo4. Glucagon Injectable: 1 mg IntraMuscular Every 15 Minutes3. Polyethylene Glycol: 17 gram(s) Oral Daily Currently Suspended Medications -- 1. Chlorhexidine Gluconate 4% Topical: 1 application(s) Topical Once Recent Lab Results: Results: I have reviewed these laboratory results: Glucose_POCT Trending View [id number]-[id number] 13:15:00 29-Mar-2018 07:09:00 28-Mar-2018 19:50:00 28-Mar-2018 16:38:00Glucose-OHTO313 H 186 H 271 H 363 H [...] appear normal. Incompletepalmar arch with good collaterals. [facility] PVR (Arterial Physiologic) [facility] [Mar 25 [...] and may make absolute Segmental Limb Pressures (PMP) unreliable.Triphasic flow is noted in the left dorsalis pedis artery, left posteriortibial artery and left common femoral artery. [facility] PVR (Arterial Physiologic) [facility] [Mar 25 2018 7:15PM] Assessment and Plan:Assessment:67 yo M with HTN, DLD, T2DM, Addisson's, GERD, prostate ca s/p prostatectomy [id number], hypothyroidism, psoriasis, and most recently diagnosed with a PE andmultivessel CAD transferred to cardiology at [facility] from [facility] 03/18 for CABG eval. Multiple PEs- addison. Segmental and subsegmental PE on CT- Repeat TTE --> No Right dilation or strain- 2V CXR --> No radiographic evidence of acute cardiopulmonary process.- Appreciate Pulmonary assistance- per pulm NO need for repeat CT chest prior to OR- c/w Heparin gtt- 03/23 IVC Filter placement- Delay CABG for 1 week Tentative plan with Dr. Sy Anderson 03/31- plan for 3-6 months anticoagulation (1st episode unprovoked PE)- Hypercoagulable work up pending- PSA <10 Multivessel CAD- 03/19 TTE EF 60-65%, impaired relaxation- EKG without acute ST T wave changes- cont Atorva 40 mg- Cardiac Cath uploaded: 03/16 at [facility] LM: 10-20%, LAD prox: 30%, LAD mid:95%, [...] increase lispro to 10 units TID AC Ontario's disease- 03/22 Reduce fludrocortisone to 0.05 mg [...] heparin gtt for PE. Electronic Signatures:Vito Patino (LOCKSTITCH BINDER-BUTTERMILK DRIER OPERATOR) (Signed 29-Mar-2018 15:36)Authored: Service, Subjective Data, Objective Data, Assessment and Plan,Signature/Cosignature/Att estationLeonel Arteaga) (Signed 29-Mar-2018 17:23)Authored: Signature/Cosignature/Attestat ionCo-Signer: Service, Subjective Data, Objective Data, Assessment and Plan,Signature/Cosignature/Att estation Last Updated: 29-Mar-2018 17:23 by Leonel Arteaga) [facility] Daily Progress Note-Endocrin ologyon 03-29-2018 Protein mass conc Consult Type: subseq uent visit/care Service: Endocrinology Subjective Data:DON ELKINS is a 67 year old Male who is Hospital Day # 12. OR postponed till Friday. Objective Data: Objective Information:T [id number]/8596% Date/Time03/29 7: 7: 7: 7: 7:35Range(36C - [...] Bolus) Injectable: 4000 unit(s) IntraVenous Push Every 3Twusg7. Hydrocortisone: 10 mg Oral 9. Hydrocortisone: 5 mg Oral 10. Hydrocortisone: 2.5 mg Oral 11. Insulin Glargine (Lantus) Injectable: 30 unit(s) SubCutaneous Every 86Xbpoi40. Insulin Lispro (HumaLOG) Injectable: 12 unit(s) SubCutaneous 3 Times aDay Before Meals13. Insulin Lispro Mild Corrective Scale: unit(s) SubCutaneous 3 Times a DayBefore Meals14. Levothyroxine: 150 microgram(s) Oral Daily15. Mupirocin 2%: 0.5 application(s) Each Nostril 2 Times a Day16. Pantoprazole: 40 mg Oral Daily17. rOPINIRole: 6 mg Oral 18. Sodium Chloride 0.65% Nasal [place]: 2 spray(s) Each Nostril 2 Times aDay PRN Medications -- 1. Dextrose 50% in Water Injectable: 25 gram(s) IntraVenous Push Every 30Cyiojhh8. Glucagon Injectable: 1 mg IntraMuscular Every 15 Minutes3. Polyethylene Glycol: 17 gram(s) Oral Daily Currently Suspended Medications -- 1. Chlorhexidine Gluconate 4% Topical: 1 application(s) Topical Once Recent Lab Results: Results: I have reviewed these laboratory results: Glucose_POCT Trending View Eorpkp28-[id number] 07:09:00 28-Mar-2018 19:50:00 28-Mar-2018 16:38:00 28-Mar-2018 12:35:00 28-Mar-2018 07:38:00 27-Mar-2018 22:33:00Glucose-VGNT312 H 271 H 363 H 231 H [...] a past medicalhistory of HTN, HLD, T2DM, Ontario's disease, hypothyroidism, COPD, AKASH onCPAP, prostate ca s/p prostatectomy in 2011, and psoriasis who was [facility] from [facility] on 03/18 forCA eval.Endocrine consulted fr evaluation of Ontario disease and treatment periop Patient was on supra-therapeutic dose of HCT 20-0-20 , fludrocortisone 0.1 ,mgdailyPatient has uncontrolled HTN and uncontrolled BSMost likely tomorrow (03/23) IVC filter placement Recommendations:1. Ontario's Disease-- Fludrocortisone 0.05 mg 4 times weekly ( and friday)-- Continue Hydrocortisone to 10-5-2.5 mg at 5gk-42eb-7yr DAILY as of tomorrow -On the day [...] protocol--Diabetic diet--will follow Please page with questions [phone] Patient seen and examined, plan discussed with [...] patient (as noted in the above attestation) [id number] Electronic Signatures:Marisol Monet) (Signed 30-Mar-2018 14:34)Authored: Signature/Cosignature/Attestat ionCo-Signer: Service, Subjective Data, Objective Data, Assessment and Plan,Signature/Cosignature/Att estationHasmukh Stephenson (Resident)) (Signed 29-Mar-2018 11:39)Authored: Service, Subjective Data, Objective Data, Assessment and Plan,Signature/Cosignature/Att estation Last Updated: 30-Mar-2018 14:34 by Marisol Monet) Normal [facility] GLUCOSE-POCTon 03-29-2018 Glucose mass conc 244 mg/dL High 74 - 99 [facility] Comment on above: Performed By: #### G BECKY ####[id number] [place] [address] Glucose mass conc 258 mg/dL High 74 - 99 [facility] Comment on above: Performed By: #### G BECKY ####[id number] [place] [address] Glucose mass conc 217 mg/dL High 74 - 99 [facility] Comment on above: Performed By: #### G BECKY ####[id number] [place] [address] Glucose mass conc 186 mg/dL High 74 - 99 [facility] Comment on above: Performed By: #### G BECKY ####[id number] [id number] HEPARIN ASSAY,UFHon 03-29-20 18 HEPARIN ASSAY,UFH 0.4 IU/mL Normal [facility] Comment on above: Result Comment: The therapeutic reference range for UFH may be either 0.3-0.6 IU/mL or 0.3-0.7 IU/mL based on the clinical setting for anticoagulant therapy and the associated nomogram used. For heparin dosing guidelines based on clinical scenario and Heparin Assay results, please refer to local Pharmacy and [facility] Guidelines for Anticoagulation therapy available on the [facility] intranet at:[email or web address]/Pharmacy/Pages/[place]_Guidelines_for_Anticoagu.aspx Performed By: #### H AUF ####[id number] [id number] HEPARIN ASSAY,UFH 0.4 IU/mL Normal [facility] Comment on above: Result Comment: The therapeutic reference range for UFH may be either 0.3-0.6 IU/mL or 0.3-0.7 IU/mL based on the clinical setting for anticoagulant therapy and the associated nomogram used. For heparin dosing guidelines based on clinical scenario and Heparin Assay results, please refer to local Pharmacy and [facility] Guidelines for Anticoagulation therapy available on the [facility] intranet at:[email or web address]/Pharmacy/Pages/[place]_Guidelines_for_Anticoagu.aspx Performed By: #### H AUF ####[id number] [place] [address] RENAL FUNCTION PANELon 03-29 Albumin mass conc 3.9 g/dL Normal 3.4 - 5.0 [facility] Comment on above: Performed By: #### R ENAL ####[id number] [place] [address] Anion gap 3 molar conc 19 mmol/L Normal 10 - 20 [facility] Comment on above: Performed By: #### R ENAL ####[id number] [place] [address] Calcium mass conc 9.3 mg/dL Normal 8.6 - 10.6 [facility] Comment on above: Performed By: #### R ENAL ####[id number] [place] [address] Chloride molar conc 99 mmol/L Normal 98 - 107 [facility] Comment on above: Performed By: #### R ENAL ####[id number] [place] [address] Creatinine mass conc 1.32 mg/dL High 0.50 - 1.30 [facility] Comment on above: Performed By: #### R ENAL ####[id number] [place] [address] GFR- AM. 65 mL/min/1.73m2 Normal >60 [facility] Comment on above: Result Comment: CALC ULATIONS OF ESTIMATED GFR ARE PERFORMED USING THE MDRD STUDY EQUATION FOR THE IDMS-TRACEABLE CREATININE METHODS. CLIN CHEM 2007;53:766-72 Performed By: #### R ENAL ####[id number] [place] [address] GFR-NON AM. 54 mL/min/1.73m2 Abnormal >60 [facility] Comment on above: Performed By: #### R ENAL ####[id number] [place] [address] Glucose mass conc 237 mg/dL High 74 - 99 [facility] Comment on above: Performed By: #### R ENAL ####[id number] [place] [address] HCO3 molar conc (Bld) 19 mmol/L Low 21 - 32 [facility] Comment on above: Performed By: #### R ENAL ####[id number] [place] [address] Phosphate mass conc 4.2 mg/dL Normal 2.5 - 4.9 [facility] Comment on above: Result Comment: The performance characteristics of phosphorus testing in heparinized plasma have been validated by the individual laboratory site where testing is performed. Testing on heparinized plasma is not approved by the FDA; however, such approval is not necessary. Performed By: #### R ENAL ####[id number] [place] [address] Potassium molar conc 4.6 mmol/L Normal 3.5 - 5.3 [facility] Comment on above: Performed By: #### R ENAL ####[id number] [place] [address] Sodium molar conc 132 mmol/L Low 136 - 145 [facility] Comment on above: Performed By: #### R ENAL ####[id number] [place] [address] Urea nitrogen mass conc 24 mg/dL High 6 - 23 [facility] Comment on above: Performed By: #### R ENAL ####[id number] [place] [address] Albumin mass conc 4.0 g/dL Normal 3.4 - 5.0 [facility] Comment on above: Performed By: #### R ENAL ####[id number] [place] [address] Anion gap 3 molar conc 14 mmol/L Normal 10 - 20 [facility] Comment on above: Performed By: #### R ENAL ####[id number] [place] [address] Calcium mass conc 9.5 mg/dL Normal 8.6 - 10.6 [facility] Comment on above: Performed By: #### R ENAL ####[id number] [place] [address] Chloride molar conc 103 mmol/L Normal 98 - 107 [facility] Comment on above: Performed By: #### R ENAL ####[id number] [place] [address] Creatinine mass conc 1.44 mg/dL High 0.50 - 1.30 [facility] Comment on above: Performed By: #### R ENAL ####[id number] [place] [address] GFR- AM. 59 mL/min/1.73m2 Abnormal >60 [facility] Comment on above: Result Comment: CALC ULATIONS OF ESTIMATED GFR ARE PERFORMED USING THE MDRD STUDY EQUATION FOR THE IDMS-TRACEABLE CREATININE METHODS. CLIN CHEM 2007;53:766-72 Performed By: #### R ENAL ####[id number] [place] [address] GFR-NON AM. 49 mL/min/1.73m2 Abnormal >60 [facility] Comment on above: Performed By: #### R ENAL ####[id number] [place] [address] Glucose mass conc 220 mg/dL High 74 - 99 [facility] Comment on above: Performed By: #### R ENAL ####[id number] [place] [address] HCO3 molar conc (Bld) 27 mmol/L Normal 21 - 32 [facility] Comment on above: Performed By: #### R ENAL ####[id number] [place] [address] Phosphate mass conc 4.0 mg/dL Normal 2.5 - 4.9 [facility] Comment on above: Result Comment: The performance characteristics of phosphorus testing in heparinized plasma have been validated by the individual laboratory site where testing is performed. Testing on heparinized plasma is not approved by the FDA; however, such approval is not necessary. Performed By: #### R ENAL ####[id number] [place] [address] Potassium molar conc 4.5 mmol/L Normal 3.5 - 5.3 [facility] Comment on above: Performed By: #### R ENAL ####[id number] [place] [address] Sodium molar conc 139 mmol/L Normal 136 - 145 [facility] Comment on above: Performed By: #### R ENAL ####[id number] [place] [address] Urea nitrogen mass conc 23 mg/dL Normal 6 - 23 [facility] Comment on above: Performed By: #### R ENAL ####[id number] [place] [address] CBCon 03-28-2018 Erythrocyte distribution width Auto Ratio (RBC) 12.8 % Normal 11.5 - 14.5 [facility] Comment on above: Performed By: #### C BC ####[id number] [place] [address] Hematocrit Auto Volume Fraction (Bld) 41.4 % Normal 41.0 - 52.0 [facility] Comment on above: Performed By: #### C BC ####[id number] [place] [address] Hemoglobin mass conc (Bld) 13.9 g/dL Normal 13.5 - 17.5 [facility] Comment on above: Performed By: #### C BC ####[id number] [place] [address] MCHC Auto mass conc (RBC) 33.6 g/dL Normal 32.0 - 36.0 [facility] Comment on above: Performed By: #### C BC ####[id number] [place] [address] MCV Auto Entitic volume (RBC) 93 fL Normal 80 - 100 [facility] Comment on above: Performed By: #### C BC ####[id number] [place] [address] Nucleated RBC/100 WBC Ratio (Bld) 0.0 /100 WBC Normal 0.0-0.0 [facility] Comment on above: Performed By: #### C BC ####[id number] [place] [address] Platelets Auto #/vol (Bld) 230 10*3/uL Normal 150 - 450 [facility] Comment on above: Performed By: #### C BC ####[id number] [place] [address] RBC Auto #/vol (Bld) 4.46 x10E12/L Low 4.50 - 5.90 [facility] Comment on above: Performed By: #### C BC ####[id number] [place] [address] WBC Auto #/vol (Bld) 8.2 10*3/uL Normal 4.4 - 11.3 [facility] Comment on above: Performed By: #### C BC ####[id number] [place] [address] Daily Progress Note-Cardiosandra chavez 03-28-2018 Protein mass conc Service: Cardiology Subjective Data:DON ELKINS is a 67 year old Male who is Hospital Day # 11. Additional Information: Resting in bed, has been ambulating in halls, hypercoagulable work up pending,BS better controlled - plan for OR Saturday 03/31- c/w Heparin gtt Objective Data: Objective Information:T CGIISdP3Pllmy66.56867448/8196% Date/Time03/28 8: 8: 8: 8: 8:00Range(35.9C - 36.7C ) (71 - 85 ) (17 - 20 ) (125 - 165 )/ (72 - 97 ) (94%- 96% ) Pain at Rest reported at 03/28 0:05: 0 Cccytzb68/10 3:52: Weight in kg (Weight (kg)) 107.10 3:52: Weight in lbs ((lbs)) 237.2 Physical Exam: Constitutional: Resting in bed, NADHead/Neck: No JVDRespiratory/Thorax: CTABCardiovascular: RRR, S1 O4Znfyhojsuonivqsu: soft, NT/NDExtremities: No LE edemaNeurological: alert and oriented x5Layncekufijxt: Appropriate mood and behaviorSkin: psoriasis plaque over [...] Bolus) Injectable: 4000 unit(s) IntraVenous Push Every 8Mwaup6. Hydrocortisone: 10 mg Oral 9. Hydrocortisone: 5 mg Oral 10. Hydrocortisone: 2.5 mg Oral 11. Insulin Glargine (Lantus) Injectable: 30 unit(s) SubCutaneous Every 29Uvsvp96. Insulin Lispro (HumaLOG) Injectable: 10 unit(s) SubCutaneous 3 Times aDay Before Meals13. Insulin Lispro Mild Corrective Scale: unit(s) SubCutaneous 3 Times a DayBefore Meals14. Levothyroxine: 150 microgram(s) Oral Daily15. Mupirocin 2%: 0.5 application(s) Each Nostril 2 Times a Day16. Pantoprazole: 40 mg Oral Daily17. rOPINIRole: 6 mg Oral 18. Sodium Chloride 0.65% Nasal [place]: 2 spray(s) Each Nostril 2 Times aDay PRN Medications -- 1. Dextrose 50% in Water Injectable: 25 gram(s) IntraVenous Push Every 83Mzukpko9. Glucagon Injectable: 1 mg IntraMuscular Every 15 Minutes3. Polyethylene Glycol: 17 gram(s) Oral Daily Currently Suspended Medications -- 1. Chlorhexidine Gluconate 4% Topical: 1 application(s) Topical Once Recent Lab Results: Results: I have reviewed these laboratory results: Glucose_POCT Trending View Azjwqw78-Tfl-5515 07:38:00 27-Mar-2018 22:33:00Glucose-UQRW288 H 268 H Heparin assay, UFH 27-Mar-2018 [...] and may make absolute Segmental Limb Pressures (PMP) unreliable.Triphasic flow is noted in the left dorsalis pedis artery, left posteriortibial artery and left common femoral artery. VASC LAB PVR (Arterial Physiologic) BROOKS [Mar 25 2018 7:15PM] Assessment and Plan:Assessment:67 yo M with HTN, DLD, T2DM, Addisson's, GERD, prostate ca s/p prostatectomy [id number], hypothyroidism, psoriasis, and most recently diagnosed with a PE andmultivessel CAD transferred to cardiology at [facility] from [facility] 03/18 for CABG eval. Multiple PEs- [...] 40 mg- Cardiac Cath uploaded: 03/16 at [facility] LM: 10-20%, LAD prox: 30%, LAD mid:95%, [...] with heparin gtt.Await CABG. Electronic Signatures:Vito Patino (LOCKSTITCH BINDER-BUTTERMILK DRIER OPERATOR) (Signed 28-Mar-2018 10:27)Authored: Service, Subjective Data, Objective Data, Assessment and Plan,Signature/Cosignature/Att estationLeonel Arteaga) (Signed 28-Mar-2018 20:06)Authored: Signature/Cosignature/Attestat ionCo-Signer: Service, Subjective Data, Objective Data, Assessment and Plan,Signature/Cosignature/Att estation Last Updated: 28-Mar-2018 20:06 by Leonel Arteaga) Normal [facility] GLUCOSE-POCTon 03-28-2018 Glucose mass conc 271 mg/dL High 74 - 99 [facility] Comment on above: Performed By: #### G BECKY ####[id number] [place] [address] Glucose mass conc 363 mg/dL High 74 - 99 [facility] Comment on above: Performed By: #### G BECKY ####[id number] [place] [address] Glucose mass conc 231 mg/dL High 74 - 99 [facility] Comment on above: Performed By: #### G BECKY ####[id number] [place] [address] Glucose mass conc 171 mg/dL High 74 - 99 [facility] Comment on above: Performed By: #### G BECKY ####[id number] [place] [address] Glucose mass conc 268 mg/dL High 74 - 99 [facility] Comment on above: Performed By: #### G BECKY ####[id number] [place] [address] RENAL FUNCTION PANELon 03-28 Albumin mass conc 3.9 g/dL Normal 3.4 - 5.0 [facility] Comment on above: Performed By: #### R ENAL ####[id number] [place] [address] Anion gap 3 molar conc 18 mmol/L Normal 10 - 20 [facility] Comment on above: Performed By: #### R ENAL ####[id number] [place] [address] Calcium mass conc 9.3 mg/dL Normal 8.6 - 10.6 [facility] Comment on above: Performed By: #### R ENAL ####[id number] [place] [address] Chloride molar conc 98 mmol/L Normal 98 - 107 [facility] Comment on above: Performed By: #### R ENAL ####[id number] [place] [address] Creatinine mass conc 1.48 mg/dL High 0.50 - 1.30 [facility] Comment on above: Performed By: #### R ENAL ####[id number] [place] [address] GFR- AM. 57 mL/min/1.73m2 Abnormal >60 [facility] Comment on above: Result Comment: CALC ULATIONS OF ESTIMATED GFR ARE PERFORMED USING THE MDRD STUDY EQUATION FOR THE IDMS-TRACEABLE CREATININE METHODS. CLIN CHEM 2007;53:766-72 Performed By: #### R ENAL ####[id number] [place] [address] GFR-NON AM. 47 mL/min/1.73m2 Abnormal >60 [facility] Comment on above: Performed By: #### R ENAL ####[id number] [place] [address] Glucose mass conc 202 mg/dL High 74 - 99 [facility] Comment on above: Performed By: #### R ENAL ####[id number] [place] [address] HCO3 molar conc (Bld) 23 mmol/L Normal 21 - 32 [facility] Comment on above: Performed By: #### R ENAL ####[id number] [place] [address] Phosphate mass conc 4.0 mg/dL Normal 2.5 - 4.9 [facility] Comment on above: Result Comment: The performance characteristics of phosphorus testing in heparinized plasma have been validated by the individual laboratory site where testing is performed. Testing on heparinized plasma is not approved by the FDA; however, such approval is not necessary. Performed By: #### R ENAL ####[id number] [place] [address] Potassium molar conc 4.2 mmol/L Normal 3.5 - 5.3 [facility] Comment on above: Performed By: #### R ENAL ####[id number] [place] [address] Sodium molar conc 135 mmol/L Low 136 - 145 [facility] Comment on above: Performed By: #### R ENAL ####[id number] [place] [address] Urea nitrogen mass conc 22 mg/dL Normal 6 - 23 [facility] Comment on above: Performed By: #### R ENAL ####[id number] [place] [address] Clinical Event Note-Revaluat ion of PEon 03-27-2018 [...] 07:25 by Princess Garnica ( (Fellow)) Normal [facility] Daily Progress Note-Cardiosandra augustinelizabeth 03-27-2018 Protein mass conc Service: Cardiology Subjective Data:DON ELKINS is a 67 year old Male who is Hospital Day # 10. Additional Information:Patient feeling well. Out of bed and ambulating. No CP or SOB. Cont heparingtt. - plan for OR Wednesday 03/28- will draw hypercoagulable labs- increase lispro to 10units TID AC Objective Data: Objective Information: T TNVWEeU8Wsalp56.98248614/8494% Date/Time03/27 8: 8: 8: 8: 8:05Range(35.7C - 36.4C ) (73 - 78 ) (18 - 21 ) (122 - 152 )/ (78 - 84 ) (94%- 97% ) Ffbhgov59/9 4:54: Weight in kg (Weight (kg)) 09963/9 4:54: Weight in lbs ((lbs)) 236 Physical Exam: Constitutional: Resting in bed, NADHead/Neck: No JVDRespiratory/Thorax: CTABCardiovascular: RRR, S1 F6Rkffgjbjxybcvzgb: soft, NT/NDExtremities: No LE edemaNeurological: alert and oriented a9Zyvrgpguzmphw: Appropriate mood and behaviorSkin: psoriasis plaque over [...] Bolus) Injectable: 4000 unit(s) IntraVenous Push Every 6Pczub6. Hydrocortisone: 10 mg Oral 9. Hydrocortisone: 5 mg Oral 10. Hydrocortisone: 2.5 mg Oral 11. Insulin Glargine (Lantus) Injectable: 30 unit(s) SubCutaneous Every 76Bkogt52. Insulin Lispro (HumaLOG) Injectable: 8 unit(s) SubCutaneous 3 Times aDay Before Meals13. Insulin Lispro Mild Corrective Scale: unit(s) SubCutaneous 3 Times a DayBefore Meals14. Levothyroxine: 150 microgram(s) Oral Daily15. Mupirocin 2%: 0.5 application(s) Each Nostril 2 Times a Day16. Pantoprazole: 40 mg Oral Daily17. rOPINIRole: 6 mg Oral 18. Sodium Chloride 0.65% Nasal [place]: 2 spray(s) Each Nostril 2 Times aDay PRN Medications -- 1. Dextrose 50% in Water Injectable: 25 gram(s) IntraVenous Push Every 07Rtlesjc8. Glucagon Injectable: 1 mg IntraMuscular Every 15 Minutes3. Polyethylene Glycol: 17 gram(s) Oral Daily Currently Suspended Medications -- 1. Chlorhexidine Gluconate 4% Topical: 1 application(s) Topical Once Recent Lab Results: Results: I have reviewed these laboratory results: Glucose_POCT Trending View Heyzdg13-Fvg-0767 08:02:00 26-Mar-2018 21:14:00 26-Mar-2018 19:41:00 26-Mar-2018 15:43:00 26-Mar-2018 12:28:00 26-Mar-2018 07:27:00Glucose-OXCV364 H 302 H 237 H 256 H 285 H 154 H Complete Blood Count Trending View Axlhmy13-Ejp-6104 16:27:00 26-Mar-2018 00:38:00White Blood Cell Count8.0 8.2Nucleated Erythrocyte Count0.0 0.0Red Blood Cell Count4.47 L 4.36 LHGB14.1 13.5HCT41.0 39.6 LMCV92 50KBRL88.4 34.1CEM914 211RDW-CV12.8 12.9 Renal Function Panel Trending View Xnoccb48-Exo-5515 16:27:00 26-Mar-2018 00:38:00Glucose, Rbdpz277 H 153 CZI834 138K4.6 4.2SR587 102Bicarbonate, Serum25 24Anion Gap, Serum16 74EVQ25 29LZOLH1.46 H 1.40 HGFR-Non Ftbjczgc78 A 50 AGFR- Ctoqhukc09 A 61Calcium, Serum9.4 9.3Phosphorus, Serum4.2 4.8ALB4.0 3.9 Heparin assay, UFH Trending View Cynqzc54-Ppu-0897 16:27:00 26-Mar-2018 00:39:00Heparin assay, UFH0.3 0.4 Radiology [...] and may make absolute Segmental Limb Pressures (PMP) unreliable.Triphasic flow is noted in the left dorsalis pedis artery, left posteriortibial artery and left common femoral artery. VASC LAB PVR (Arterial Physiologic) BROOKS [Mar 25 2018 7:15PM] Assessment and Plan:Assessment:67 yo M with HTN, DLD, T2DM, Addisson's, GERD, prostate ca s/p prostatectomy [id number], hypothyroidism, psoriasis, and most recently diagnosed with a PE andmultivessel CAD transferred to cardiology at [facility] from [facility] 03/18 for CABG eval. Multiple PEs- [...] 40 mg- Cardiac Cath uploaded: 03/16 at [facility] LM: 10-20%, LAD prox: 30%, LAD mid:95%, [...] increase lispro to 10 units TID AC Ontario's disease- 03/22 Reduce fludrocortisone to 0.05 mg [...] Service, Subjective Data, Objective Data, Assessment and Kate Miller (TONI-BUTTERMILK DRIER OPERATOR) (Signed 27-Mar-2018 16:37)Authored: Service, Subjective Data, Objective Data, Assessment and Plan Last Updated: 28-Mar-2018 20:04 by Leonel Arteaga) Normal [facility] Daily Progress Note-Endocrin yarelyyon 03-27-2018 Protein mass conc Consult Type: subseq uent visit/care Service: Endocrinology Subjective Data:DON ELKINS is a 67 year old Male who is Hospital Day # 10. Objective Data: Objective Information:T YBONQpM8Jtugq96.60197546/7795% Date/Time03/27 15: 15: 15: 15: 15:43Range(35.9C - [...] Bolus) Injectable: 4000 unit(s) IntraVenous Push Every 2Jybmh3. Hydrocortisone: 10 mg Oral 9. Hydrocortisone: 5 mg Oral 10. Hydrocortisone: 2.5 mg Oral 11. Insulin Glargine (Lantus) Injectable: 30 unit(s) SubCutaneous Every 60Toxbz20. Insulin Lispro (HumaLOG) Injectable: 10 unit(s) SubCutaneous 3 Times aDay Before Meals13. Insulin Lispro Mild Corrective Scale: unit(s) SubCutaneous 3 Times a DayBefore Meals14. Levothyroxine: 150 microgram(s) Oral Daily15. Mupirocin 2%: 0.5 application(s) Each Nostril 2 Times a Day16. Pantoprazole: 40 mg Oral Daily17. rOPINIRole: 6 mg Oral 18. Sodium Chloride 0.65% Nasal [place]: 2 spray(s) Each Nostril 2 Times aDay PRN Medications -- 1. Dextrose 50% in Water Injectable: 25 gram(s) IntraVenous Push Every 53Gyzzbba1. Glucagon Injectable: 1 mg IntraMuscular Every 15 Minutes3. Polyethylene Glycol: 17 gram(s) Oral Daily Currently Suspended Medications -- 1. Chlorhexidine Gluconate 4% Topical: 1 application(s) Topical Once Recent Lab Results: Results: I have reviewed these laboratory results: Glucose_POCT Trending View Cmivdz48-Wbd-7464 16:33:00 27-Mar-2018 12:54:00 27-Mar-2018 08:02:00 26-Mar-2018 21:14:00 26-Mar-2018 19:41:00 26-Mar-2018 15:43:00 59-Wss-928826:28:00 26-Mar-2018 07:27:00 25-Mar-2018 21:21:00Glucose-DRHO268 H 229 H 152 H 302 H 237 H 256 H 285H 154 H 181 H Renal Function Panel Trending View Zqailp42-Pzv-4657 16:27:00 26-Mar-2018 00:38:00Glucose, Yooum240 H 153 OPV231 138K4.6 4.9GK733 102Bicarbonate, Serum25 24Anion Gap, Serum16 62FFB32 22FGXWJ4.46 H 1.40 HGFR-Non Zltwsncs18 A 50 AGFR- Kqienkwp48 A 61Calcium, Serum9.4 9.3Phosphorus, Serum4.2 4.8ALB4.0 3.9 Assessment and Plan:Assessment: Mr. Elkins is a 67 yo WM with no known history of CAD, who has a past medicalhistory of HTN, HLD, T2DM, Brigida's disease, hypothyroidism, COPD, AKASH onCPAP, prostate ca s/p prostatectomy in 2011, and psoriasis who was transferredto [facility] service at [facility] from [facility] on 03/18 David marshall.Endocrine consulted fr evaluation of Ontario disease and treatment periop Patient was on supra-therapeutic dose of HCT 20-0-20 , fludrocortisone 0.1 ,mgdailyPatient has uncontrolled HTN and uncontrolled BSMost likely tomorrow (03/23) IVC filter placement Recommendations:1. Ontario's Disease-- Fludrocortisone 0.05 mg 4 times weekly ( and friday)-- Continue Hydrocortisone to 10-5-2.5 mg at 8hx-40fv-1fo DAILY as of tomorrow -On the day [...] protocol--Diabetic diet--will follow Please page with questions [phone] Patient seen and examined, plan discussed with [...] patient (as noted in the above attestation) [id number] Electronic Signatures:Starr Quevedo) (Signed 31-Mar-2018 10:05)Authored: Signature/Cosignature/Attestat ionCo-Signer: Service, Subjective Data, Objective Data, Assessment and Plan,Signature/Cosignature/Att Hasmukh Gabriel (Resident)) (Signed 27-Mar-2018 17:17)Authored: Service, Subjective Data, Objective Data, Assessment and Plan,Signature/Cosignature/Att estation Last Updated: 31-Mar-2018 10:05 by Starr Quevedo) Normal [facility] GLUCOSE-POCTon 03-27-2018 Glucose mass conc 287 mg/dL High 74 - 99 [facility] Comment on above: Performed By: #### G BECKY ####[id number] [place] [address] Glucose mass conc 229 mg/dL High 74 - 99 [facility] Comment on above: Performed By: #### G BECKY ####[id number] [place] [address] Glucose mass conc 152 mg/dL High 74 - 99 [facility] Comment on above: Performed By: #### G BECKY ####[id number] [place] [address] HEPARIN ASSAY,UFHon 03-27-20 18 HEPARIN ASSAY,UFH 0.4 IU/mL Normal [facility] Comment on above: Result Comment: The therapeutic reference range for UFH may be either 0.3-0.6 IU/mL or 0.3-0.7 IU/mL based on the clinical setting for anticoagulant therapy and the associated nomogram used. For heparin dosing guidelines based on clinical scenario and Heparin Assay results, please refer to local Pharmacy and the [facility] Guidelines for Anticoagulation therapy available on the [facility] intranet at:[email or web address]/[email or web address]_Guidelines_for_Anticoagu.aspx Performed By: #### H AUF ####[id number] [place] [address] CBCon 03-26-2018 Erythrocyte distribution width Auto Ratio (RBC) 12.8 % Normal 11.5 - 14.5 [facility] Comment on above: Performed By: #### C BC ####[id number] [place] [address] Hematocrit Auto Volume Fraction (Bld) 41.0 % Normal 41.0 - 52.0 [facility] Comment on above: Performed By: #### C BC ####[id number] [place] [address] Hemoglobin mass conc (Bld) 14.1 g/dL Normal 13.5 - 17.5 [facility] Comment on above: Performed By: #### C BC ####[id number] [place] [address] MCHC Auto mass conc (RBC) 34.4 g/dL Normal 32.0 - 36.0 [facility] Comment on above: Performed By: #### C BC ####[id number] [place] [address] MCV Auto Entitic volume (RBC) 92 fL Normal 80 - 100 [facility] Comment on above: Performed By: #### C BC ####[id number] [place] [address] Nucleated RBC/100 WBC Ratio (Bld) 0.0 /100 WBC Normal 0.0-0.0 [facility] Comment on above: Performed By: #### C BC ####[id number] [place] [address] Platelets Auto #/vol (Bld) 231 10*3/uL Normal 150 - 450 [facility] Comment on above: Performed By: #### C BC ####[id number] [place] [address] RBC Auto #/vol (Bld) 4.47 x10E12/L Low 4.50 - 5.90 [facility] Comment on above: Performed By: #### C BC ####[id number] [place] [address] WBC Auto #/vol (Bld) 8.0 10*3/uL Normal 4.4 - 11.3 [facility] Comment on above: Performed By: #### C BC ####[id number] [place] [address] Erythrocyte distribution width Auto Ratio (RBC) 12.9 % Normal 11.5 - 14.5 [facility] Comment on above: Performed By: #### C BC ####[id number] [place] [address] Hematocrit Auto Volume Fraction (Bld) 39.6 % Low 41.0 - 52.0 [facility] Comment on above: Performed By: #### C BC ####[id number] [place] [address] Hemoglobin mass conc (Bld) 13.5 g/dL Normal 13.5 - 17.5 [facility] Comment on above: Performed By: #### C BC ####[id number] [place] [address] MCHC Auto mass conc (RBC) 34.1 g/dL Normal 32.0 - 36.0 [facility] Comment on above: Performed By: #### C BC ####[id number] [place] [address] MCV Auto Entitic volume (RBC) 91 fL Normal 80 - 100 [facility] Comment on above: Performed By: #### C BC ####[id number] [place] [address] Nucleated RBC/100 WBC Ratio (Bld) 0.0 /100 WBC Normal 0.0-0.0 [facility] Comment on above: Performed By: #### C BC ####[id number] [place] [address] Platelets Auto #/vol (Bld) 211 10*3/uL Normal 150 - 450 [facility] Comment on above: Performed By: #### C BC ####[id number] [place] [address] RBC Auto #/vol (Bld) 4.36 x10E12/L Low 4.50 - 5.90 [facility] Comment on above: Performed By: #### C BC ####[id number] [place] [address] WBC Auto #/vol (Bld) 8.2 10*3/uL Normal 4.4 - 11.3 [facility] Comment on above: Performed By: #### C BC ####[id number] [place] [address] Consulton 11-08-2018 Consult Allergies: No Known Allergies: Assessment:S: Dental [...] 06-Apr-2018 17:31 by Amador Joel (DDS) Normal [facility] Daily Progress Note-Cardiac Surgeryon 03-26-2018 Protein mass conc Service: Cardiac Iris dane Subjective Data:DON ELKINS is a 67 year old Male who is Hospital Day # 9. Objective Data: Objective Information: T LBZHEvE0Bvejj55.41813866/8195% Date/Time03/26 11: 11: 11: 11: 11:45Range(35.9C - 36.8C ) (67 - 75 ) (17 - 18 ) (124 - 173 )/ (77 - 84 ) (95%- 97% ) Pain with Activity reported at 03/26 15:37: 0Pain at Rest reported at 03/26 15:37: 0 Wikmmub11/8 3:38: Weight in kg (Weight (kg)) 107.211/8 3:38: Weight in lbs ((lbs)) 236.3 Medication: [...] Bolus) Injectable: 4000 unit(s) IntraVenous Push Every 1Ejdsq9. Hydrocortisone: 10 mg Oral 9. Hydrocortisone: 5 mg Oral 10. Hydrocortisone: 2.5 mg Oral 11. Insulin Glargine (Lantus) Injectable: 30 unit(s) SubCutaneous Every 05Dlywm87. Insulin Lispro (HumaLOG) Injectable: 8 unit(s) SubCutaneous 3 Times aDay Before Meals13. Insulin Lispro Mild Corrective Scale: unit(s) SubCutaneous 3 Times a DayBefore Meals14. Levothyroxine: 150 microgram(s) Oral Daily15. Mupirocin 2%: 0.5 application(s) Each Nostril 2 Times a Day16. Pantoprazole: 40 mg Oral Daily17. Polyethylene Glycol: 17 gram(s) Oral Daily18. rOPINIRole: 6 mg Oral 19. Sodium Chloride 0.65% Nasal [place]: 2 spray(s) Each Nostril 2 Times aDay PRN Medications -- 1. Dextrose 50% in Water Injectable: 25 gram(s) IntraVenous Push Every 51Jgjunzq3. Glucagon Injectable: 1 mg IntraMuscular Every 15 Minutes Currently Suspended Medications -- 1. Chlorhexidine Gluconate 4% Topical: 1 application(s) Topical Once Recent Lab Results: Results: I have reviewed these laboratory results: Glucose_POCT Trending View Mkmmkn35-Eww-8090 12:28:00 26-Mar-2018 07:27:00Glucose-TEMG965 H 154 H Heparin assay, UFH 26-Mar-2018 [...] and may make absolute Segmental Limb Pressures (PMP) unreliable.Triphasic flow is noted in the left [...] A4C: 17.4cm2LA Area A2C: 14.2 cm2LA [place] A4C: 6.0 cmLA [place] A2C: 4.7 cmLA Volume Index: 15.2 ml/m2RA VOLUME BY A/L METHOD: Normal Ranges:RA Area A4C: 12.8 ey0D-JDGK MEASUREMENTS: Normal Ranges:Ao Root: 2.90 cm (2.0-3.7cm)LAs: [...] 2011, and psoriasis who was [facility] on 03/18 for CABG eval. Ptpresented to [facility] with [facility] pressure and dyspnea. He as found to havebilat PEs, was started on Heparin gtt, and transferred to [facility]. He wasfound to have a troponin leak at 2.25. Cardiology was consulted and the patientwas diagnosed with ACS, NSTEMI. He underwent a TTE and cath. He had normal EF,mild AI, and triple vessel CAD so was transferred to [facility] for CABG eval. Cardiac surgery consulted [...] clinically Signature/Cosignature/Attestat ion:Provider/Team Contact Info-Pager Numbercardiac surgery [phone] Electronic Signatures:Alexandra Milligan (PAC) (Signed 26-Mar-2018 16:11)Authored: Service, Subjective Data, Objective Data, Assessment and Plan,Signature/Cosignature/Att estation Last Updated: 26-Mar-2018 16:11 by Alexandra Milligan ([facility]) Normal [facility] Daily Progress Note-Cardiosandra augustinelizabeth 03-26-2018 Protein mass conc Service: Cardiology Subjective Data:DON ELKINS is a 67 year old Male who is Hospital Day # 9. Additional Information:No changes in plan today, awaiting OR Friday. cont heparin gtt. No changes perEndo recs. - no changes Objective Data: Objective Information: T RPVZRvU4Baokn64.05657534/8195% Date/Time03/26 11: 11: 11: 11: 11:45Range(35.9C - 36.8C ) (67 - 75 ) (17 - 18 ) (124 - 173 )/ (77 - 84 ) (95%- 97% ) Wvlxhnh12/8 3:38: Weight in kg (Weight (kg)) 107.211 3:38: Weight in lbs ((lbs)) 236.3 Physical Exam: Constitutional: Resting in bed, NADHead/Neck: No JVDRespiratory/Thorax: CTABCardiovascular: RRR, S1 L9Dnrqghxgoptqkygw: soft, NT/NDExtremities: No LE edemaNeurological: alert and oriented d0Octjifybkzapl: Appropriate mood and behaviorSkin: psoriasis plaque over [...] Bolus) Injectable: 4000 unit(s) IntraVenous Push Every 6Eqano0. Hydrocortisone: 10 mg Oral 9. Hydrocortisone: 5 mg Oral 10. Hydrocortisone: 2.5 mg Oral 11. Insulin Glargine (Lantus) Injectable: 30 unit(s) SubCutaneous Every 37Zfatn47. Insulin Lispro (HumaLOG) Injectable: 8 unit(s) SubCutaneous 3 Times aDay Before Meals13. Insulin Lispro Mild Corrective Scale: unit(s) SubCutaneous 3 Times a DayBefore Meals14. Levothyroxine: 150 microgram(s) Oral Daily15. Mupirocin 2%: 0.5 application(s) Each Nostril 2 Times a Day16. Pantoprazole: 40 mg Oral Daily17. Polyethylene Glycol: 17 gram(s) Oral Daily18. rOPINIRole: 6 mg Oral 19. Sodium Chloride 0.65% Nasal [place]: 2 spray(s) Each Nostril 2 Times aDay PRN Medications -- 1. Dextrose 50% in Water Injectable: 25 gram(s) IntraVenous Push Every 37Nedzotg9. Glucagon Injectable: 1 mg IntraMuscular Every 15 Minutes Currently Suspended Medications -- 1. Chlorhexidine Gluconate 4% Topical: 1 application(s) Topical Once Recent Lab Results: Results: I have reviewed these laboratory results: Glucose_POCT Trending View Bgkscb62-Hue-2493 12:28:00 26-Mar-2018 07:27:00 25-Mar-2018 21:21:00 25-Mar-2018 16:15:00 25-Mar-2018 11:19:00 25-Mar-2018 07:47:00Glucose-OHFV027 H 154 H 181 H 306 H 291 H 163 H Heparin assay, UFH Trending View Qbmxqx48-Aqc-9689 00:39:00 25-Mar-2018 07:31:00Heparin assay, UFH0.4 0.4 Complete [...] and may make absolute Segmental Limb Pressures (PMP) unreliable.Triphasic flow is noted in the left dorsalis pedis artery, left posteriortibial artery and left common femoral artery. VASC LAB PVR (Arterial Physiologic) BROOKS [Mar 25 2018 7:15PM] Assessment and Plan:Assessment:67 yo M with HTN, DLD, T2DM, Addisson's, GERD, prostate ca s/p prostatectomy [id number], hypothyroidism, psoriasis, and most recently diagnosed with a PE andmultivessel CAD transferred to cardiology at [facility] from [facility] 03/18 for CABG eval. Multiple PEs- [...] 40 mg- Cardiac Cath uploaded: 03/16 at [facility] LM: 10-20%, LAD prox: 30%, LAD mid:95%, [...] 30 units and Lispro 8 units TID Ontario's disease- 03/22 Reduce fludrocortisone to 0.05 mg [...] with Dr. Arteaga Signature/Cosignature/Attestat ion:Provider/Team Contact Info-Pager [phone] Only - Shared Visit with Advanced Practice ProviderThis is a sharedvisit. I have reviewed the Advanced Practice Providers encounter note,approve the Advanced Practice Providers documentation, and provide thefollowing additional information from my personal encounter.Comments/ Additional FindingsContinue heparin gtt.Await CABG next week. Electronic Signatures:Leonel Arteaga) (Signed 28-Mar-2018 19:47)Authored: Signature/Cosignature/Attestat ionCo-Signer: Service, Subjective Data, Objective Data, Assessment and Plan,Signature/Cosignature/Att estationKate Ayala (LOCKSTITCH BINDER-BUTTERMILK DRIER OPERATOR) (Signed 26-Mar-2018 16:20)Authored: Service, Subjective Data, Objective Data, Assessment and Plan,Signature/Cosignature/Att estation Last Updated: 28-Mar-2018 19:47 by Leonel Arteaga) Normal [facility] Daily Progress Note-Endocrin cherie 03-26-2018 Protein mass conc Service: Endocrinolo gy Subjective Data:DON ELKINS is a 67 year old Male who is Hospital Day # 9. Objective Data: Objective Information:T ZXGDRzT2Tcbfw83.55735228/8195% Date/Time03/26 11: 11: 11: 11: 11:45Range(35.9C - [...] in 2011, and psoriasis who [facility], [facility].Endocrine consulted fr evaluation of Ontario disease and treatment periop Patient was on supra-therapeutic dose of HCT 20-0-20 , fludrocortisone 0.1 ,mgdailyPatient has uncontrolled HTN and uncontrolled BSMost likely tomorrow (03/23) IVC filter placement Recommendations:1. Brigida's Disease-- Fludrocortisone 0.05 mg 4 times weekly ( and friday)-- Continue Hydrocortisone to 10-5-2.5 mg at 5ab-41xp-9sg DAILY as of tomorrow -On the day [...] protocol--Diabetic diet--will follow Please page with questions [phone] Patient seen and examined, plan discussed with [...] patient (as noted in the above attestation) [id number] Electronic Signatures:Starr Quevedo) (Signed 28-Mar-2018 09:07)Authored: Service, Signature/Cosignature/Attestat ionCo-Signer: Subjective Data, Objective Data, Assessment and Plan,Signature/Cosignature/Att estationHasmukh Stephenson (Resident)) (Signed 26-Mar-2018 11:56)Authored: Subjective Data, Objective Data, Assessment and Plan,Signature/Cosignature/Att estation Last Updated: 28-Mar-2018 09:07 by Starr Quevedo) Normal [facility] GLUCOSE-POCTon 03-26-2018 Glucose mass conc 302 mg/dL High 74 - 99 [facility] Comment on above: Performed By: #### G BECKY ####[id number] [place] [address] Glucose mass conc 237 mg/dL High 74 - 99 [facility] Comment on above: Performed By: #### G BECKY ####[id number] [place] [address] Glucose mass conc 256 mg/dL High 74 - 99 [facility] Comment on above: Performed By: #### G BECKY ####[id number] [place] [address] Glucose mass conc 285 mg/dL High 74 - 99 [facility] Comment on above: Performed By: #### G BECKY ####[id number] [place] [address] Glucose mass conc 154 mg/dL High 74 - 99 [facility] Comment on above: Performed By: #### G BECKY ####[id number] [place] [address] HEPARIN ASSAY,UFHon 03-26-20 18 HEPARIN ASSAY,UFH 0.3 IU/mL Normal [facility] Comment on above: Result Comment: The therapeutic reference range for UFH may be either 0.3-0.6 IU/mL or 0.3-0.7 IU/mL based on the clinical setting for anticoagulant therapy and the associated nomogram used. For heparin dosing guidelines based on clinical scenario and Heparin Assay results, please refer to local Pharmacy and [facility] Guidelines for Anticoagulation therapy available on the [facility] intranet at:[email or web address]/[email or web address]_Guidelines_for_Anticoagu.aspx Performed By: #### H AUF ####[id number] [place] [address] HEPARIN ASSAY,UFH 0.4 IU/mL Normal [facility] Comment on above: Result Comment: The therapeutic reference range for UFH may be either 0.3-0.6 IU/mL or 0.3-0.7 IU/mL based on the clinical setting for anticoagulant therapy and the associated nomogram used. For heparin dosing guidelines based on clinical scenario and Heparin Assay results, please refer to local Pharmacy and the [facility] Guidelines for Anticoagulation therapy available on the [facility] intranet at:[email or web address]/Pages/[facility]_Guidelines_for_Anticoagu.aspx Performed By: #### H AUF ####[id number] [id number] PLATELETSon 03-26-2018 Platelets Auto #/vol (Bld) ORDER RECD Normal [facility] Comment on above: Result Comment: If t his patient is Rh Negative and if the Plateletproduct transfused is Rh Positive, review the useof WinRho Prophylaxis for this patient. Performed By: #### P LT ####[id number] [place] [address] RENAL FUNCTION PANELon 03-26 Albumin mass conc 4.0 g/dL Normal 3.4 - 5.0 [facility] Comment on above: Performed By: #### R ENAL ####[id number] [place] [address] Anion gap 3 molar conc 16 mmol/L Normal 10 - 20 [facility] Comment on above: Performed By: #### R ENAL ####[id number] [place] [address] Calcium mass conc 9.4 mg/dL Normal 8.6 - 10.6 [facility] Comment on above: Performed By: #### R ENAL ####[id number] [place] [address] Chloride molar conc 100 mmol/L Normal 98 - 107 [facility] Comment on above: Performed By: #### R ENAL ####[id number] [place] [address] Creatinine mass conc 1.46 mg/dL High 0.50 - 1.30 [facility] Comment on above: Performed By: #### R ENAL ####[id number] [place] [address] GFR- AM. 58 mL/min/1.73m2 Abnormal >60 [facility] Comment on above: Result Comment: CALC ULATIONS OF ESTIMATED GFR ARE PERFORMED USING THE MDRD STUDY EQUATION FOR THE IDMS-TRACEABLE CREATININE METHODS. CLIN CHEM 2007;53:766-72 Performed By: #### R ENAL ####[id number] [place] [address] GFR-NON AM. 48 mL/min/1.73m2 Abnormal >60 [facility] Comment on above: Performed By: #### R ENAL ####[id number] [place] [address] Glucose mass conc 231 mg/dL High 74 - 99 [facility] Comment on above: Performed By: #### R ENAL ####[id number] [place] [address] HCO3 molar conc (Bld) 25 mmol/L Normal 21 - 32 [facility] Comment on above: Performed By: #### R ENAL ####[id number] [place] [address] Phosphate mass conc 4.2 mg/dL Normal 2.5 - 4.9 [facility] Comment on above: Result Comment: The performance characteristics of phosphorus testing in heparinized plasma have been validated by the individual laboratory site where testing is performed. Testing on heparinized plasma is not approved by the FDA; however, such approval is not necessary. Performed By: #### R ENAL ####[id number] [place] [address] Potassium molar conc 4.6 mmol/L Normal 3.5 - 5.3 [facility] Comment on above: Performed By: #### R ENAL ####[id number] [place] [address] Sodium molar conc 136 mmol/L Normal 136 - 145 [facility] Comment on above: Performed By: #### R ENAL ####[id number] [place] [address] Urea nitrogen mass conc 21 mg/dL Normal 6 - 23 [facility] Comment on above: Performed By: #### R ENAL ####[id number] [place] [address] Albumin mass conc 3.9 g/dL Normal 3.4 - 5.0 [facility] Comment on above: Performed By: #### R ENAL ####[id number] [place] [address] Anion gap 3 molar conc 16 mmol/L Normal 10 - 20 [facility] Comment on above: Performed By: #### R ENAL ####[id number] [place] [address] Calcium mass conc 9.3 mg/dL Normal 8.6 - 10.6 [facility] Comment on above: Performed By: #### R ENAL ####[id number] [place] [address] Chloride molar conc 102 mmol/L Normal 98 - 107 [facility] Comment on above: Performed By: #### R ENAL ####[id number] [place] [address] Creatinine mass conc 1.40 mg/dL High 0.50 - 1.30 [facility] Comment on above: Performed By: #### R ENAL ####[id number] [place] [address] GFR- AM. 61 mL/min/1.73m2 Normal >60 [facility] Comment on above: Result Comment: CALC ULATIONS OF ESTIMATED GFR ARE PERFORMED USING THE MDRD STUDY EQUATION FOR THE IDMS-TRACEABLE CREATININE METHODS. CLIN CHEM 2007;53:766-72 Performed By: #### R ENAL ####[id number] [place] [address] GFR-NON AM. 50 mL/min/1.73m2 Abnormal >60 [facility] Comment on above: Performed By: #### R ENAL ####[id number] [place] [address] Glucose mass conc 153 mg/dL High 74 - 99 [facility] Comment on above: Performed By: #### R ENAL ####[id number] [place] [address] HCO3 molar conc (Bld) 24 mmol/L Normal 21 - 32 [facility] Comment on above: Performed By: #### R ENAL ####[id number] [place] [address] Phosphate mass conc 4.8 mg/dL Normal 2.5 - 4.9 [facility] Comment on above: Result Comment: The performance characteristics of phosphorus testing in heparinized plasma have been validated by the individual laboratory site where testing is performed. Testing on heparinized plasma is not approved by the FDA; however, such approval is not necessary. Performed By: #### R ENAL ####[id number] [place] [address] Potassium molar conc 4.3 mmol/L Normal 3.5 - 5.3 [facility] Comment on above: Performed By: #### R ENAL ####[id number] [place] [address] Sodium molar conc 138 mmol/L Normal 136 - 145 [facility] Comment on above: Performed By: #### R ENAL ####[id number] [place] [address] Urea nitrogen mass conc 22 mg/dL Normal 6 - 23 [facility] Comment on above: Performed By: #### R ENAL ####[id number] [place] [address] REQUEST-LEUKOREDUCED RED HERI LSon 03-26-2018 REQUEST-LEUKOREDU TATUM RED CELLS ORDER RECD Normal [facility] Comment on above: Performed By: #### O FRONT OFFICE CLERK ####[id number] [place] [address] STAPH/MRSA SCREENon 03-26-20 18 STAPH/MRSA SCREEN TEST STAPH/MRSA SCRE EN WAS CANCELLED, 03/26/2018 17:39 ?Cancel Reason: Discontinued.PATIENT: DON ELKINS LOCATION: [address]#: [id number] : 50 AGE: SEX: M ORDERED BY: MONI MILLIGAN: ANTERIOR NARES COLLECTED: 03/26/18 17:39ANTIBIOTICS AT JIMENA.: RECEIVED : SITE: NARES R E S U L T S STAPH/MRSA SCREEN CANCELLED 03/26/18 17:55 Normal [facility] Comment on above: Performed By: #### S TAPH ####[id number] [place] [address] CBCon 03-25-2018 Erythrocyte distribution width Auto Ratio (RBC) 13.0 % Normal 11.5 - 14.5 [facility] Comment on above: Performed By: #### G BECKY ####[id number] [place] [address] Hematocrit Auto Volume Fraction (Bld) 38.4 % Low 41.0 - 52.0 [facility] Comment on above: Performed By: #### G BECKY ####[id number] [place] [address] Hemoglobin mass conc (Bld) 12.9 g/dL Low 13.5 - 17.5 [facility] Comment on above: Performed By: #### G BECKY ####[id number] [place] [address] MCHC Auto mass conc (RBC) 33.6 g/dL Normal 32.0 - 36.0 [facility] Comment on above: Performed By: #### G BECKY ####[id number] [place] [address] MCV Auto Entitic volume (RBC) 94 fL Normal 80 - 100 [facility] Comment on above: Performed By: #### G BECKY ####[id number] [place] [address] Nucleated RBC/100 WBC Ratio (Bld) 0.0 /100 WBC Normal 0.0-0.0 [facility] Comment on above: Performed By: #### G BECKY ####[id number] [place] [address] Platelets Auto #/vol (Bld) 219 10*3/uL Normal 150 - 450 [facility] Comment on above: Performed By: #### G BECKY ####[id number] [place] [address] RBC Auto #/vol (Bld) 4.10 x10E12/L Low 4.50 - 5.90 [facility] Comment on above: Performed By: #### G BECKY ####[id number] [place] [address] WBC Auto #/vol (Bld) 8.2 10*3/uL Normal 4.4 - 11.3 [facility] Comment on above: Performed By: #### G BECKY ####[id number] [place] [address] Daily Progress Note-Yann chavez 03-25-2018 Protein mass conc Service: Cardiology Subjective Data:DON ELKINS is a 67 year old Male who is Hospital Day # 8. Additional Information:BP remains of 130s-150s/60-80s, BS improved to 160s this AM - c/w Heparin gtt- c/w Lantus 25 units daily and Lispro 6 units before meals- Plan for CABG next week Objective Data: Objective Information:T GUOYMvI3Ojdxq48.01428001/8497% Date/Time03/25 8: 8: 8: 8: 8:13Range(35.8C - 36.8C ) (68 - 86 ) (16 - 18 ) (128 - 166 )/ (80 - 85 ) (96%- 98% ) Pain with Activity reported at 03/25 0:10: 0Pain at Rest reported at 03/25 0:10: 0 Jidleyo23/7 3:46: Weight in kg (Weight (kg)) 107.911 3:46: Weight in lbs ((lbs)) 237.8 Physical Exam: Constitutional: Resting in bed, NADHead/Neck: No JVDRespiratory/Thorax: CTABCardiovascular: RRR, S1 I5Iecjlljcwswfpvfh: soft, NT/NDExtremities: No edemaNeurological: alert and oriented l3Ovfjxeuomkfoi: Appropriate mood and behaviorSkin: psoriasis plaque over [...] Bolus) Injectable: 4000 unit(s) IntraVenous Push Every 0Twhnz5. Hydrocortisone: 10 mg Oral 9. Hydrocortisone: 5 mg Oral 10. Hydrocortisone: 2.5 mg Oral 11. Insulin Glargine (Lantus) Injectable: 25 unit(s) SubCutaneous Every 14Yogvx14. Insulin Lispro (HumaLOG) Injectable: 6 unit(s) SubCutaneous 3 Times aDay Before Meals13. Insulin Lispro Mild Corrective Scale: unit(s) SubCutaneous 3 Times a DayBefore Meals14. Levothyroxine: 150 microgram(s) Oral Daily15. Pantoprazole: 40 mg Oral Daily16. Polyethylene Glycol: 17 gram(s) Oral Daily17. rOPINIRole: 6 mg Oral 18. Sodium Chloride 0.65% Nasal [place]: 2 spray(s) Each Nostril 2 Times aDay PRN Medications -- 1. Dextrose 50% in Water Injectable: 25 gram(s) IntraVenous Push Every 94Xakxmnm7. Glucagon Injectable: 1 mg IntraMuscular Every 15 Minutes Currently Suspended Medications -- 1. Chlorhexidine Gluconate 4% Topical: 1 application(s) Topical Once Recent Lab Results: Results: I have reviewed these laboratory results: Glucose_POCT Trending View Okhckz22-Bme-6054 11:19:00 25-Mar-2018 07:47:00Glucose-DJOV757 H 163 H Heparin assay, UFH 25-Mar-2018 [...] T2DM, Addisson's, GERD, prostate ca s/p prostatectomy [id number], hypothyroidism, psoriasis, and most recently diagnosed with a PE andmultivessel CAD transferred to medicine at [facility] from [facility] on03/18 for CABG eval. Multiple PEs- [...] and increase Lispro to 8 units TID Ontario's disease- 03/22 Reduce fludrocortisone to 0.05 mg [...] overnight.Await CABG on Friday. Electronic Signatures:Vito Patino (LOCKSTITCH BINDER-BUTTERMILK DRIER OPERATOR) (Signed 25-Mar-2018 16:22)Authored: Service, Subjective Data, Objective Data, Assessment and Plan,Signature/Cosignature/Att estationLeonel Arteaga) (Signed 26-Mar-2018 11:18)Authored: Signature/Cosignature/Attestat ionCo-Signer: Subjective Data, Objective Data, Assessment and Plan,Signature/Cosignature/Att estation Last Updated: 26-Mar-2018 11:18 by Leonel Arteaga) Normal [facility] Daily Progress Note-Endocrin ologyon 03-25-2018 Protein mass conc Consult Type: subseq uent visit/care Service: Endocrinology Subjective Data:DON ELKINS is a 67 year old Male who is Hospital Day # 8. Objective Data: Objective Information:T HZHIPoO4Mpiui79.53739203/7997% Date/Time03/25 16: 16: 16: 16: 16:00Range(35.8C - 36.2C ) (68 - 78 ) (17 - 18 ) (128 - 166 )/ (79 - 86 ) (96%- 97% ) Pain with Activity reported at 03/25 8:00: 0Pain at Rest reported at 03/25 8:00: 0 Ezdgeak45/7 3:46: Weight in kg (Weight (kg)) 107.911/7 3:46: Weight in lbs ((lbs)) 237.8 Physical [...] reviewed these laboratory results: Glucose_POCT Trending View Neoxje21-Vak-6788 12:46:00 24-Mar-2018 11:46:00 24-Mar-2018 06:54:00 23-Mar-2018 20:50:00 23-Mar-2018 15:44:00 23-Mar-2018 11:37:00 90-Hqj-178432:37:00 22-Mar-2018 21:18:00Glucose-GYPF556 H 262 H 217 H 290 H 228 H 226 H 189H 275 H Basic Metabolic Panel 24-Mar-2018 03:30:00 ResultValueGlucose, Serum 358 HNA 134 LK 4.2CL 103Bicarbonate, Serum 21Anion Gap, Serum 14BUN 26 HCREAT 1.24GFR-Non 58 AGFR- 70Calcium, Serum 9.1 Renal Function Panel Trending View Gkshzb01-Zui-1128 20:34:00 22-Mar-2018 19:24:00Glucose, Tvwhf742 H 226 GMA981 138K4.2 4.6XV908 102Bicarbonate, Serum24 25Anion Gap, Serum14 74TIT19 24 HCREAT1.23 1.53 HGFR-Non Ecqgsegr76 A 46 AGFR- Jaeeshlb54 56 ACalcium, Serum9.2 9.0Phosphorus, Serum3.9 4.0ALB3.7 3.7 Assessment and Plan:Assessment: Mr. Elkins is a 67 yo WM with no known history of CAD, who has a past medicalhistory of HTN, HLD, T2DM, Ontario's disease, hypothyroidism, COPD, AKASH onCPAP, prostate ca s/p prostatectomy in 2011, and psoriasis who was transferredto HHVI service at [facility] from [facility] on 03/18 forCABG marshall.Endocrine consulted fr evaluation of Ontario disease and treatment periop Patient was on supra-therapeutic dose of HCT 20-0-20 , fludrocortisone 0.1 ,mgdailyPatient has uncontrolled HTN and uncontrolled BSMost likely tomorrow (03/23) IVC filter placement Recommendations:1. Brigida's Disease-- Fludrocortisone 0.05 mg 4 times weekly ( and friday)-- Continue Hydrocortisone to 10-5-2.5 mg at 7yd-78hk-7wu DAILY as of tomorrow -On the day [...] protocol--Diabetic diet--will follow Please page with questions [phone] Patient seen and examined, plan discussed with [...] patient (as noted in the above attestation) [id number] Electronic Signatures:Starr Quevedo) (Signed 28-Mar-2018 09:06)Authored: Signature/Cosignature/Attestat ionCo-Signer: Service, Subjective Data, Objective Data, Assessment and Plan,Signature/Cosignature/Att Hasmukh Gabriel (Resident)) (Signed 25-Mar-2018 19:27)Authored: Service, Subjective Data, Objective Data, Assessment and Plan,Signature/Cosignature/Att estation Last Updated: 28-Mar-2018 09:06 by Starr Quevedo) Normal [facility] GLUCOSE-POCTon 03-25-2018 Glucose mass conc 181 mg/dL High 74 - 99 [facility] Comment on above: Performed By: #### G BECKY ####[id number] [place] [address] Glucose mass conc 306 mg/dL High 74 - 99 [facility] Comment on above: Performed By: #### G BECKY ####[id number] [place] [address] Glucose mass conc 291 mg/dL High 74 - 99 [facility] Comment on above: Performed By: #### G BECKY ####[id number] [place] [address] Glucose mass conc 163 mg/dL High 74 - 99 [facility] Comment on above: Performed By: #### G BECKY ####[id number] [place] [address] HEPARIN ASSAY,UFHon 03-25-20 18 HEPARIN ASSAY,UFH 0.4 IU/mL Normal [facility] Comment on above: Result Comment: The therapeutic reference range for UFH may be either 0.3-0.6 IU/mL or 0.3-0.7 IU/mL based on the clinical setting for anticoagulant therapy and the associated nomogram used. For heparin dosing guidelines based on clinical scenario and Heparin Assay results, please refer to local Pharmacy and the [facility] Guidelines for Anticoagulation therapy available on the [facility] intranet at:[email or web address]/Pages/[facility]_Guidelines_for_Anticoagu.aspx Performed By: #### G BECKY ####[id number] [place] [address] RENAL FUNCTION PANELon 03-25 Albumin mass conc 3.8 g/dL Normal 3.4 - 5.0 [facility] Comment on above: Performed By: #### G BECKY ####[id number] [place] [address] Anion gap 3 molar conc 12 mmol/L Normal 10 - 20 [facility] Comment on above: Performed By: #### G BECKY ####[id number] [place] [address] Calcium mass conc 9.3 mg/dL Normal 8.6 - 10.6 [facility] Comment on above: Performed By: #### G BECKY ####[id number] [place] [address] Chloride molar conc 103 mmol/L Normal 98 - 107 [facility] Comment on above: Performed By: #### G BECKY ####[id number] [place] [address] Creatinine mass conc 1.52 mg/dL High 0.50 - 1.30 [facility] Comment on above: Performed By: #### G BECKY ####[id number] [place] [address] GFR- AM. 56 mL/min/1.73m2 Abnormal >60 [facility] Comment on above: Result Comment: CALC ULATIONS OF ESTIMATED GFR ARE PERFORMED USING THE MDRD STUDY EQUATION FOR THE IDMS-TRACEABLE CREATININE METHODS. CLIN CHEM 2007;53:766-72 Performed By: #### G BECKY ####[id number] [place] [address] GFR-NON AM. 46 mL/min/1.73m2 Abnormal >60 [facility] Comment on above: Performed By: #### G BECKY ####[id number] [place] [address] Glucose mass conc 246 mg/dL High 74 - 99 [facility] Comment on above: Performed By: #### G BECKY ####[id number] [place] [address] HCO3 molar conc (Bld) 27 mmol/L Normal 21 - 32 [facility] Comment on above: Performed By: #### G BECKY ####[id number] [place] [address] Phosphate mass conc 4.4 mg/dL Normal 2.5 - 4.9 [facility] Comment on above: Result Comment: The performance characteristics of phosphorus testing in heparinized plasma have been validated by the individual laboratory site where testing is performed. Testing on heparinized plasma is not approved by the FDA; however, such approval is not necessary. Performed By: #### G BECKY ####[id number] [place] [address] Potassium molar conc 4.4 mmol/L Normal 3.5 - 5.3 [facility] Comment on above: Performed By: #### G BECKY ####[id number] [place] [address] Sodium molar conc 138 mmol/L Normal 136 - 145 [facility] Comment on above: Performed By: #### G BECKY ####[id number] [place] [address] Urea nitrogen mass conc 26 mg/dL High 6 - 23 [facility] Comment on above: Performed By: #### G BECKY ####[id number] [place] [address] BASIC METABOLIC PANELon 11-0 Anion gap 3 molar conc 14 mmol/L Normal 10 - 20 [facility] Comment on above: Performed By: #### B MP ####[id number] [place] [address] Calcium mass conc 9.1 mg/dL Normal 8.6 - 10.6 [facility] Comment on above: Performed By: #### B MP ####[id number] [place] [address] Chloride molar conc 103 mmol/L Normal 98 - 107 [facility] Comment on above: Performed By: #### B MP ####[id number] [place] [address] Creatinine mass conc 1.24 mg/dL Normal 0.50 - 1.30 [facility] Comment on above: Performed By: #### B MP ####[id number] [place] [address] GFR- AM. 70 mL/min/1.73m2 Normal >60 [facility] Comment on above: Result Comment: CALC ULATIONS OF ESTIMATED GFR ARE PERFORMED USING THE MDRD STUDY EQUATION FOR THE IDMS-TRACEABLE CREATININE METHODS. CLIN CHEM 2007;53:766-72 Performed By: #### B MP ####[id number] [place] [address] GFR-NON AM. 58 mL/min/1.73m2 Abnormal >60 [facility] Comment on above: Performed By: #### B MP ####[id number] [place] [address] Glucose mass conc 358 mg/dL High 74 - 99 [facility] Comment on above: Performed By: #### B MP ####[id number] [place] [address] HCO3 molar conc (Bld) 21 mmol/L Normal 21 - 32 [facility] Comment on above: Performed By: #### B MP ####[id number] [place] [address] Potassium molar conc 4.2 mmol/L Normal 3.5 - 5.3 [facility] Comment on above: Performed By: #### B MP ####[id number] [place] [address] Sodium molar conc 134 mmol/L Low 136 - 145 [facility] Comment on above: Performed By: #### B MP ####[id number] [place] [address] Urea nitrogen mass conc 26 mg/dL High 6 - 23 [facility] Comment on above: Performed By: #### B MP ####[id number] [place] [address] CBCon 03-24-2018 Erythrocyte distribution width Auto Ratio (RBC) 12.9 % Normal 11.5 - 14.5 [facility] Comment on above: Performed By: #### C BC ####[id number] [place] [address] Hematocrit Auto Volume Fraction (Bld) 40.0 % Low 41.0 - 52.0 [facility] Comment on above: Performed By: #### C BC ####[id number] [place] [address] Hemoglobin mass conc (Bld) 13.4 g/dL Low 13.5 - 17.5 [facility] Comment on above: Performed By: #### C BC ####[id number] [place] [address] MCHC Auto mass conc (RBC) 33.5 g/dL Normal 32.0 - 36.0 [facility] Comment on above: Performed By: #### C BC ####[id number] [place] [address] MCV Auto Entitic volume (RBC) 92 fL Normal 80 - 100 [facility] Comment on above: Performed By: #### C BC ####[id number] [place] [address] Nucleated RBC/100 WBC Ratio (Bld) 0.0 /100 WBC Normal 0.0-0.0 [facility] Comment on above: Performed By: #### C BC ####[id number] [place] [address] Platelets Auto #/vol (Bld) 216 10*3/uL Normal 150 - 450 [facility] Comment on above: Performed By: #### C BC ####[id number] [place] [address] RBC Auto #/vol (Bld) 4.33 x10E12/L Low 4.50 - 5.90 [facility] Comment on above: Performed By: #### C BC ####[id number] [place] [address] WBC Auto #/vol (Bld) 7.6 10*3/uL Normal 4.4 - 11.3 [facility] Comment on above: Performed By: #### C BC ####[id number] [place] [address] Erythrocyte distribution width Auto Ratio (RBC) 12.9 % Normal 11.5 - 14.5 [facility] Comment on above: Performed By: #### C BC ####[id number] [place] [address] Hematocrit Auto Volume Fraction (Bld) 39.8 % Low 41.0 - 52.0 [facility] Comment on above: Performed By: #### C BC ####[id number] [place] [address] Hemoglobin mass conc (Bld) 13.6 g/dL Normal 13.5 - 17.5 [facility] Comment on above: Performed By: #### C BC ####[id number] [place] [address] MCHC Auto mass conc (RBC) 34.2 g/dL Normal 32.0 - 36.0 [facility] Comment on above: Performed By: #### C BC ####[id number] [place] [address] MCV Auto Entitic volume (RBC) 92 fL Normal 80 - 100 [facility] Comment on above: Performed By: #### C BC ####[id number] [place] [address] Nucleated RBC/100 WBC Ratio (Bld) 0.0 /100 WBC Normal 0.0-0.0 [facility] Comment on above: Performed By: #### C BC ####[id number] [place] [address] Platelets Auto #/vol (Bld) 216 10*3/uL Normal 150 - 450 [facility] Comment on above: Performed By: #### C BC ####[id number] [place] [address] RBC Auto #/vol (Bld) 4.34 x10E12/L Low 4.50 - 5.90 [facility] Comment on above: Performed By: #### C BC ####[id number] [place] [address] WBC Auto #/vol (Bld) 7.5 10*3/uL Normal 4.4 - 11.3 [facility] Comment on above: Performed By: #### C BC ####[id number] [place] [address] Daily Progress Note-Yann chavez 03-24-2018 Protein mass conc Service: Cardiology Subjective Data:DON ELKINS is a 67 year old Male who is Hospital Day # 7. Additional Information:s/p IVC Filter placement yesterday, SBP improved to 130s-150s/60-80s, BSremain elevated 200s - c/w Heparin gtt- Increase Lantus to 25 units- Add Lispro 6 units before meals- Plan for CABG next week Objective Data: Objective Information:T RIWEQnX7Pucbu48.68431420/8496% Date/Time03/24 7: 7: 7: 8: 7:44Range(35.6C - 37C ) (67 - 85 ) (18 - 22 ) (122 - 158 )/ (68 - 84 ) (93% -96% )Highest temp of 37 C was recorded at 03/23 11:00 Pain with Activity reported at 03/24 3:34: 0Pain at Rest reported at 03/24 3:34: 0 Rtrxumg45/6 3:33: Weight in kg (Weight (kg)) 108. 3:33: Weight in lbs ((lbs)) 238.8 Physical Exam: Constitutional: Resting in bed, NADHead/Neck: No JVDRespiratory/Thorax: CTABCardiovascular: RRR, S1 W3Mlmugplakweikizv: soft, NT/NDExtremities: No edemaNeurological: alert and oriented k4Usoumcmxsapmy: Appropriate mood and behaviorSkin: psoriasis plaque over [...] Bolus) Injectable: 4000 unit(s) IntraVenous Push Every 3Dzope8. Hydrocortisone: 10 mg Oral 9. Hydrocortisone: 5 mg Oral 10. Hydrocortisone: 2.5 mg Oral 11. Insulin Glargine (Lantus) Injectable: 20 unit(s) SubCutaneous Every 67Vubaf37. Insulin Lispro Mild Corrective Scale: unit(s) SubCutaneous 3 Times a DayBefore Meals13. Levothyroxine: 150 microgram(s) Oral Daily14. Pantoprazole: 40 mg Oral Daily15. Polyethylene Glycol: 17 gram(s) Oral Daily16. rOPINIRole: 6 mg Oral 17. Sodium Chloride 0.65% Nasal Woodbine: 2 spray(s) Each Nostril 2 Times aDay PRN Medications -- 1. Dextrose 50% in Water Injectable: 25 gram(s) IntraVenous Push Every 32Ayxjtnc7. Glucagon Injectable: 1 mg IntraMuscular Every 15 Minutes Currently Suspended Medications -- 1. Chlorhexidine Gluconate 4% Topical: 1 application(s) Topical Once Recent Lab Results: Results: I have reviewed these laboratory results: Glucose_POCT Trending View [id number]-Yfy-6489 06:54:00 23-Mar-2018 20:50:00Glucose-IMLZ589 H 290 H Complete Blood Count Trending View Noaefh94-Bud-5243 03:30:00 23-Mar-2018 20:34:00White Blood Cell Count7.6 7.5Nucleated Erythrocyte Count0.0 0.0Red Blood Cell Count4.33 L 4.34 LHGB13.4 L 13.6HCT40.0 L 39.8 LMCV92 45DENB07.5 34.5PGD303 216RDW-CV12.9 12.9 Basic Metabolic Panel 24-Mar-2018 03:30:00 ResultValueGlucose, Serum 358 HNA 134 LK 4.2CL 103Bicarbonate, Serum 21Anion Gap, Serum 14BUN 26 HCREAT 1.24GFR-Non 58 AGFR- 70Calcium, Serum 9.1 Heparin assay, UFH Trending View Uzxstm47-Ivg-3832 03:30:00 23-Mar-2018 23:27:00Heparin assay, UFH0.4 0.3 Renal [...] T2DM, Addisson's, GERD, prostate ca s/p prostatectomy mg6375, hypothyroidism, psoriasis, and most recently diagnosed with a PE andmultivessel CAD transferred to medicine at [facility] from [facility] for CABG eval. Multiple PEs- addison. [...] units- Add Lispro 6 units before meals Ontario's disease- 03/22 Reduce fludrocortisone to 0.05 mg [...] Await CABG on Friday.Appreciate Pulmonary input. Electronic Signatures:iVto Patino (LOCKSTITCH BINDER-BUTTERMILK DRIER OPERATOR) (Signed 24-Mar-2018 09:27)Authored: Service, Subjective Data, Objective Data, Assessment and Plan,Signature/Cosignature/Att Leonel Chilel) (Signed 26-Mar-2018 11:20)Authored: Signature/Cosignature/Attestat ionCo-Signer: Service, Subjective Data, Objective Data, Assessment and Plan,Signature/Cosignature/Att estation Last Updated: 26-Mar-2018 11:20 by Leonel Arteaga) Normal [facility] Daily Progress Note-Endocrin yarelyyon 03-24-2018 Protein mass conc Consult Type: subseq uent visit/care Service: Endocrinology Subjective Data:DON ELKINS is a 67 year old Male who is Hospital Day # 7. BS above range. Objective Data: Objective Information:T UJVMEcT0Pgydm56.43475525/8397% Date/Time03/24 12: 12: 12: 12: 12:41Range(35.6C - [...] Bolus) Injectable: 4000 unit(s) IntraVenous Push Every 7Ansei5. Hydrocortisone: 10 mg Oral 9. Hydrocortisone: 5 mg Oral 10. Hydrocortisone: 2.5 mg Oral 11. Insulin Glargine (Lantus) Injectable: 25 unit(s) SubCutaneous Every 79Stcfm65. Insulin Lispro (HumaLOG) Injectable: 6 unit(s) SubCutaneous 3 Times aDay Before Meals13. Insulin Lispro Mild Corrective Scale: unit(s) SubCutaneous 3 Times a DayBefore Meals14. Levothyroxine: 150 microgram(s) Oral Daily15. Pantoprazole: 40 mg Oral Daily16. Polyethylene Glycol: 17 gram(s) Oral Daily17. rOPINIRole: 6 mg Oral 18. Sodium Chloride 0.65% Nasal [place]bine: 2 spray(s) Each Nostril 2 Times aDay PRN Medications -- 1. Dextrose 50% in Water Injectable: 25 gram(s) IntraVenous Push Every 17Htvovyc8. Glucagon Injectable: 1 mg IntraMuscular Every 15 Minutes Currently Suspended Medications -- 1. Chlorhexidine Gluconate 4% Topical: 1 application(s) Topical Once Recent Lab Results: Results: I have reviewed these laboratory results: Glucose_POCT Trending View Qmsgkt42-Szs-5765 12:46:00 24-Mar-2018 11:46:00 24-Mar-2018 06:54:00 23-Mar-2018 20:50:00 23-Mar-2018 15:44:00 23-Mar-2018 11:37:00 05-Lje-334241:37:00 22-Mar-2018 21:18:00Glucose-BJSB230 H 262 H 217 H 290 H 228 H 226 H 189H 275 H Basic Metabolic Panel 24-Mar-2018 03:30:00 ResultValueGlucose, Serum 358 HNA 134 LK 4.2CL 103Bicarbonate, Serum 21Anion Gap, Serum 14BUN 26 HCREAT 1.24GFR-Non 58 AGFR- 70Calcium, Serum 9.1 Renal Function Panel Trending View Mcpgml52-Qtt-9905 20:34:00 22-Mar-2018 19:24:00Glucose, Jfwxx306 H 226 IJV003 138K4.2 4.1WY291 102Bicarbonate, Serum24 25Anion Gap, Serum14 86DKA38 24 HCREAT1.23 1.53 HGFR-Non Hbjsbphw55 A 46 AGFR- Ycudsmwp61 56 ACalcium, Serum9.2 9.0Phosphorus, Serum3.9 4.0ALB3.7 3.7 Assessment and Plan:Assessment: Mr. Elkins is a 67 yo WM with no known history of CAD, who has a past medicalhistory of HTN, HLD, T2DM, Ontario's disease, hypothyroidism, COPD, AKASH onCPAP, prostate ca s/p prostatectomy in 2011, and psoriasis who was [facility]to [facility] from [facility] on 03/18 forCABG eval.Endocrine consulted fr evaluation of Ontario disease and treatment periop Patient was on supra-therapeutic dose of HCT 20-0-20 , fludrocortisone 0.1 ,mgdailyPatient has uncontrolled HTN and uncontrolled BSMost likely tomorrow (03/23) IVC filter placement Recommendations:1. Brigida's Disease-- Fludrocortisone 0.05 mg 4 times weekly ( and friday)-- Continue Hydrocortisone to 10-5-2.5 mg at 5uo-09ws-4lw DAILY as of tomorrow -On the day [...] protocol--Diabetic diet--will follow Please page with questions [phone] Patient seen and examined, plan discussed with [...] patient (as noted in the above attestation) [id number] Electronic Signatures:Starr Quevedo) (Signed 28-Mar-2018 09:05)Authored: Signature/Cosignature/Attestat ionCo-Signer: Service, Subjective Data, Objective Data, Assessment and PlanHasmukh Stephenson (Resident)) (Signed 24-Mar-2018 13:56)Authored: Service, Subjective Data, Objective Data, Assessment and Plan Last Updated: 28-Mar-2018 09:05 by Starr Quevedo) Normal [facility] GLUCOSE-POCTon 03-24-2018 Glucose mass conc 240 mg/dL High 74 - 99 [facility] Comment on above: Performed By: #### G BECKY ####[id number] [place] [address] Glucose mass conc 312 mg/dL High 74 - 99 [facility] Comment on above: Performed By: #### G BECKY ####[id number] [place] [address] Glucose mass conc 242 mg/dL High 74 - 99 [facility] Comment on above: Performed By: #### G BECKY ####[id number] [place] [address] Glucose mass conc 262 mg/dL High 74 - 99 [facility] Comment on above: Performed By: #### G BECKY ####[id number] [place] [address] Glucose mass conc 217 mg/dL High 74 - 99 [facility] Comment on above: Performed By: #### G BECKY ####[id number] [place] [address] HEPARIN ASSAY,UFHon 03-24-20 18 HEPARIN ASSAY,UFH 0.4 IU/mL Normal [facility] Comment on above: Result Comment: The therapeutic reference range for UFH may be either 0.3-0.6 IU/mL or 0.3-0.7 IU/mL based on the clinical setting for anticoagulant therapy and the associated nomogram used. For heparin dosing guidelines based on clinical scenario and Heparin Assay results, please refer to local Pharmacy and the [facility] Guidelines for Anticoagulation therapy available on the [facility] intranet at:[email or web address]/Pharmacy/[email or web address]_Guidelines_for_Anticoagu.aspx Performed By: #### H AUF ####[id number] [place] [address] HEPARIN ASSAY,UFH 0.3 IU/mL Normal [facility] Comment on above: Result Comment: The therapeutic reference range for UFH may be either 0.3-0.6 IU/mL or 0.3-0.7 IU/mL based on the clinical setting for anticoagulant therapy and the associated nomogram used. For heparin dosing guidelines based on clinical scenario and Heparin Assay results, please refer to local Pharmacy and [facility] Guidelines for Anticoagulation therapy available on the [facility] intranet at:[email or web address]/Pharmacy/[email or web address]_Guidelines_for_Anticoagu.aspx Performed By: #### H AUF ####[id number] [id number] RENAL FUNCTION PANELon 03-24 Albumin mass conc 3.7 g/dL Normal 3.4 - 5.0 [facility] Comment on above: Performed By: #### R ENAL ####[id number] [id number] Anion gap 3 molar conc 14 mmol/L Normal 10 - 20 [facility] Comment on above: Performed By: #### R ENAL ####[id number] [id number] Calcium mass conc 9.2 mg/dL Normal 8.6 - 10.6 [facility] Comment on above: Performed By: #### R ENAL ####[id number] [id number] Chloride molar conc 102 mmol/L Normal 98 - 107 [facility] Comment on above: Performed By: #### R ENAL ####[id number] [place] [address] Creatinine mass conc 1.23 mg/dL Normal 0.50 - 1.30 [facility] Comment on above: Performed By: #### R ENAL ####[id number] [place] [address] GFR- AM. 71 mL/min/1.73m2 Normal >60 [facility] Comment on above: Result Comment: CALC ULATIONS OF ESTIMATED GFR ARE PERFORMED USING THE MDRD STUDY EQUATION FOR THE IDMS-TRACEABLE CREATININE METHODS. CLIN CHEM 2007;53:766-72 Performed By: #### R ENAL ####[id number] [place] [address] GFR-NON AM. 59 mL/min/1.73m2 Abnormal >60 [facility] Comment on above: Performed By: #### R ENAL ####[id number] [place] [address] Glucose mass conc 271 mg/dL High 74 - 99 [facility] Comment on above: Performed By: #### R ENAL ####[id number] [place] [address] HCO3 molar conc (Bld) 24 mmol/L Normal 21 - 32 [facility] Comment on above: Performed By: #### R ENAL ####[id number] [place] [address] Phosphate mass conc 3.9 mg/dL Normal 2.5 - 4.9 [facility] Comment on above: Result Comment: The performance characteristics of phosphorus testing in heparinized plasma have been validated by the individual laboratory site where testing is performed. Testing on heparinized plasma is not approved by the FDA; however, such approval is not necessary. Performed By: #### R ENAL ####[id number] [place] [address] Potassium molar conc 4.2 mmol/L Normal 3.5 - 5.3 [facility] Comment on above: Performed By: #### R ENAL ####[id number] [place] [address] Sodium molar conc 136 mmol/L Normal 136 - 145 [facility] Comment on above: Performed By: #### R ENAL ####[id number] [place] [address] Urea nitrogen mass conc 21 mg/dL Normal 6 - 23 [facility] Comment on above: Performed By: #### R ENAL ####[id number] [place] [address] ABO/RH GROUP TESTon 03-23-20 18 ABO TYPE A Normal [facility] Comment on above: Performed By: #### T SH2 ####[id number] [place] [address] RH TYPE Positive Normal [facility] Comment on above: Performed By: #### T SH2 ####[id number] [id number] BENZODIAZEPINES CONF,URINEon 03-23-2018 7-AMINOCLONAZEPAM <5 Normal [facility] Comment on above: Performed By: #### B ENCN ####[facility] [address] [place] [address] ALPHA-HYDROXYALPR AZOLAM <5 Normal [facility] Comment on above: Performed By: #### B ENCN ####[facility] [place] [address] ALPHA-HYRDOXYMIDA ZOLAM 36 ng/mL Normal [facility] Comment on above: Result Comment: Mida zolam metabolite: consistent with use of a drug containingmidazolam, such as Versed.Performed by [facility] [place] [address] fxz.[employer], Esteban Carbajal MD - Lab. Director Performed By: #### B ENCN ####[facility] [address] [place] [address] ALPRAZOLAM <5 Normal [facility] Comment on above: Performed By: #### B ENCN ####[facility] [place] [address] CHLORDIAZEPOXIDE <20 Normal [facility] Comment on above: Performed By: #### B ENCN ####[facility] [address] [place] [address] CLONAZEPAM <5 Normal [facility] Comment on above: Performed By: #### B ENCN ####[facility] [address] [place] [address] DIAZEPAM <20 Normal [facility] Comment on above: Result Comment: INTE RPRETIVE [...] the laboratory.Test developed and characteristics determined by [facility]. See Compliance Statement B: Dead Inventory Management System.[employer]/CS Performed By: #### B ENCN ####[facility] [address] [place] [address] LORAZEPAM <20 Normal [facility] Comment on above: Performed By: #### B ENCN ####[facility] [address] [place] [address] MIDAZOLAM <20 Normal [facility] Comment on above: Performed By: #### B ENCN ####[facility] [address] [place] [address] NORDIAZEPAM <20 Normal [facility] Comment on above: Performed By: #### B ENCN ####[facility] [address] [place] [address] OXAZEPAM <20 Normal [facility] Comment on above: Performed By: #### B ENCN ####[facility] [address] [place] [address] TEMAZEPAM <20 Normal [facility] Comment on above: Performed By: #### B ENCN ####[facility] [address] [place] [address] Daily Progress Note-Cardiosandra chavez 03-23-2018 Protein mass conc Service: Cardiology Subjective Data:DON ELKINS is a 67 year old Male who is Hospital Day # 6. Additional Information:s/p IVC Filter placement today, SBP remains elevated 150-160s, BS remainelevated 2-300s - restart Heparin gtt this evening- Plan for CABG next week Objective Data: Objective Information:T KUFZRzW7Qtfwk930283670/7593%Da te/Time03/23 11: 11::: 11:00Range(35.8C - 37C ) (69 - 78 ) (17 - 20 ) (121 - 168 )/ (73 - 91 ) (93% -97% )Highest temp of 37 C was recorded at 03/23 11:00 Pain with Activity reported at 03/23 11:00: 0Pain at Rest reported at 03/23 11:00: 0 Xakxztr28/5 3:51: Weight in kg (Weight (kg)) 108.811 3:51: Weight in lbs ((lbs)) 239.8 Physical Exam: Constitutional: Resting in bed, NADHead/Neck: No JVDRespiratory/Thorax: CTABCardiovascular: RRR, S1 B9Eqyhwnghhvvhjakh: soft, NT/NDExtremities: No edemaNeurological: alert and oriented x7Ryqychjsmwcpr: Appropriate mood and behaviorSkin: psoriasis plaque over [...] Bolus) Injectable: 4000 unit(s) IntraVenous Push Every 3Flurc1. Hydrocortisone: 5 mg Oral 9. Insulin Lispro Mild Corrective Scale: unit(s) SubCutaneous 3 Times a DayBefore Meals10. Levothyroxine: 150 microgram(s) Oral Daily11. Mupirocin 2%: 0.5 application(s) Each Nostril 2 Times a Day12. Pantoprazole: 40 mg Oral Daily13. Polyethylene Glycol: 17 gram(s) Oral Daily14. rOPINIRole: 2 mg Oral 3 Times a Day15. Sodium Chloride 0.65% Nasal Wood[place]ine: 2 spray(s) Each Nostril 2 Times aDay PRN Medications -- 1. Dextrose 50% in Water Injectable: 25 gram(s) IntraVenous Push Every 12Waojgaz4. Glucagon Injectable: 1 mg IntraMuscular Every 15 Minutes Currently Suspended Medications -- 1. Chlorhexidine Gluconate 4% Topical: 1 application(s) Topical Once2. Heparin 25,000 units/ D5W 250 mL Infusion: 1000 units/hr IntraVenous 3. Hydrocortisone: 10 mg Oral 4. Hydrocortisone: 5 mg Oral 5. Hydrocortisone: 2.5 mg Oral Recent Lab Results: Results: I have reviewed these laboratory results: Glucose_POCT Trending View Sqflzj24-Yoo-7896 11:37:00 23-Mar-2018 07:37:00 22-Mar-2018 21:18:00Glucose-COKR859 H 189 H 275 H Heparin assay, UFH Trending View Pwyhsh75-Mne-7616 02:02:00 22-Mar-2018 19:24:00Heparin assay, UFH0.4 0.2 Complete [...] T2DM, Addisson's, GERD, prostate ca s/p prostatectomy [id number], hypothyroidism, psoriasis, and most recently diagnosed with a PE andmultivessel CAD transferred to medicine at [facility] from [facility] for CABG eval. Multiple PEs- addison. [...] 24 hours- 03/22 Lantus 20 units x1 Ontario's disease- 03/22 Reduce fludrocortisone to 0.05 mg [...] Ramirez.Restart anticoagulation post procedure. Electronic Signatures:Vito Patino (LOCKSTITCH BINDER-BUTTERMILK DRIER OPERATOR) (Signed 23-Mar-2018 15:52)Authored: Service, Subjective Data, Objective Data, Assessment and Plan,Signature/Cosignature/Att estationLeonel Arteaga) (Signed 26-Mar-2018 11:14)Authored: Signature/Cosignature/Attestat ionCo-Signer: Service, Subjective Data, Objective Data, Assessment and Plan,Signature/Cosignature/Att estation Last Updated: 26-Mar-2018 11:14 by Leonel Arteaga) Normal [facility] Daily Progress Note-Endocrin cherie 03-23-2018 Protein mass conc Service: Endocrinolo gy Subjective Data:DON ELKINS is a 67 year old Male who is Hospital Day # 6. Post IVF procedure today received HCt 30 mg once in ama d 10 mg IVat noon whilein the OR, HDS. Objective Data: Objective Information:T XOPRAqG5Sgwqt831523670/7593%Da te/Time03/23 11: 11: 11:: 11:00Range(35.8C - 37C ) (69 - 78 [...] a past medicalhistory of HTN, HLD, T2DM, Ontario's disease, hypothyroidism, COPD, AKASH onCPAP, prostate ca s/p prostatectomy in 2011, and psoriasis who was transferredto [facility] service at [facility] from [facility] on 03/18 forLABG marshall.Endocrine consulted fr 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 Ontario's Disease-- Fludrocortisone to 0.05 mg 4 times weekly ( and friday)-- Give HCt 5mg today at 5 pm then resume as below tomorrow-- Continue Hydrocortisone to 10-5-2.5 mg at 7xg-40ph-6as DAILY as of tomorrow -On the day [...] protocol--Diabetic diet--will follow Please page with questions [phone] Patient seen and examined, plan discussed with [...] patient (as noted in the above attestation) [id number] Electronic Signatures:Starr Quevedo) (Signed 28-Mar-2018 09:04)Authored: Signature/Cosignature/Attestat ionCo-Signer: Service, Subjective Data, Objective Data, Assessment and Plan,Signature/Cosignature/Att estationHasmukh Stephenson (Resident)) (Signed 23-Mar-2018 15:54)Authored: Service, Subjective Data, Objective Data, Assessment and Plan,Signature/Cosignature/Att estation Last Updated: 28-Mar-2018 09:04 by Starr Quevedo) Normal [facility] Daily Progress Note-Pulmonol ogyon 03-23-2018 Daily Progress [...] on ambient air. Objective Data: Objective Information:T [id number]/7193%Da te/Time03/23 11: 15: 11: 15: 11:00Range(35.8C - [...] Case seen, examined and discussed with Dr. RutherfordlPulmonary medicine will sign offPlease page with questions [phone] Signature/Cosignature/Attestat ion:Attending AttestationI saw and evaluated the [...] patient (as noted in the above attestation) [id number] Electronic Signatures:Angie Fuentes) (Signed 23-Mar-2018 18:13)Authored: Service, Signature/Cosignature/Attestat ionCo-Signer: Service, Subjective Data, Objective Data, Assessment and Plan,Signature/Cosignature/Att estationPrincess Garnica (Fellow)) (Signed 23-Mar-2018 16:18)Authored: Service, Subjective Data, Objective Data, Assessment and Plan,Signature/Cosignature/Att estation Last Updated: 23-Mar-2018 18:13 by Angie Fuentes) Normal [facility] GLUCOSE-POCTon 03-23-2018 Glucose mass conc 290 mg/dL High 74 - 99 [facility] Comment on above: Performed By: #### G BECKY ####[id number] [place] [address] Glucose mass conc 228 mg/dL High 74 - 99 [facility] Comment on above: Performed By: #### T SH2 ####[id number] [place] [address] Glucose mass conc 226 mg/dL High 74 - 99 [facility] Comment on above: Performed By: #### T SH2 ####[id number] [place] [address] Glucose mass conc 189 mg/dL High 74 - 99 [facility] Comment on above: Performed By: #### T SH2 ####[id number] [place] [address] HEPARIN ASSAY,UFHon 03-23-20 18 HEPARIN ASSAY,UFH 0.4 IU/mL Normal [facility] Comment on above: Result Comment: The therapeutic reference range for UFH may be either 0.3-0.6 IU/mL or 0.3-0.7 IU/mL based on the clinical setting for anticoagulant therapy and the associated nomogram used. For heparin dosing guidelines based on clinical scenario and Heparin Assay results, please refer to local Pharmacy and the [facility] Guidelines for Anticoagulation therapy available on the [facility] intranet at:[email or web address]/Pages/[place]_Guidelines_for_Anticoagu.aspx Performed By: #### T SH2 ####[id number] [id number] OPERATIVE REPORTon 8 OPERATIVE REPORT [facility] [id number] Name: DON ELKINSN: [id number]: 1Encounter Number: [id number] of Service: 03/23/2018Patient Location: [facility] T502 [id number] Type: ISurgeon: Ana King Type: Operative ReportsPREOPERATIVE [...] wall puncture technique using ultrasound guidance. A 5-Icelandic sheath was placed. A wire was placed [...] MD ESTTT: 03/24/2018 00:30 AM ESTDICTATION NUMBER: [id number] JOB NUMBER: [id number]:Leonel Arteaga MD, [id number] Cheng MD, PhDElectronically Signed by Dr. Severiano Stapleton 04/01/2018 03:04:35 PM Normal [facility] OPIATE CONFIRMATION,URINEon 03-23-2018 6-ACETYLMORPHINE <10 Normal [facility] Comment on above: Result Comment: INTE RPRETIVE [...] the laboratory.Test developed and characteristics determined by [facility]. See Compliance Statement B: [employer]/ Performed By: #### O PIC2 ####[employer] [address] [place] [address] CODEINE <20 Normal [facility] Comment on above: Performed By: #### O PIC2 ####[facility] [address] [place] [address] HYDROCODONE <20 Normal [facility] Comment on above: Performed By: #### O PIC2 ####[facility] [address] [place] [address] HYDROMORPHONE <20 Normal [facility] Comment on above: Performed By: #### O PIC2 ####[facility] [address] [place] [address] MORPHINE <20 Normal [facility] Comment on above: Performed By: #### O PIC2 ####[facility] [address] [place] [address] NORHYDROCODONE <20 Normal [facility] Comment on above: Result Comment: Perf ormed by [facility],[address], [facility] [place] [address] qds.[employer], Esteban Carbajal MD - Lab. Director Performed By: #### O PIC2 ####[employer] [address] [place] [address] NOROXYCODONE <20 Normal [facility] Comment on above: Performed By: #### O PIC2 ####[employer] [address] [place] [address] NOROXYMORPHONE <20 Normal [facility] Comment on above: Performed By: #### O PIC2 ####[facility]UP [address] [place] [address] OXYCODONE <20 Normal [facility] Comment on above: Performed By: #### O PIC2 ####[facility] [address] [place] [address] OXYMORPHONE <20 Normal [facility] Comment on above: Performed By: #### O PIC2 ####[facility] [address] [place] [address] Preop Checkliston 03-23-2018 Preop Checklist Preop Checklist:Preo p Checklist: Procedure TypeIVC filter NPO [id number] 00:00 ID Band Onyes Allergy Bandno known [...] / Communication: Language / CommunicationEnglish Electronic Signatures:Matt Zapien (ANDREA) (Signed 23-Mar-2018 06:11)Authored: Preop Checklist Last Updated: 23-Mar-2018 06:11 by Matt Zapien (ANDREA) Normal [facility] RENAL FUNCTION PANELon 03-23 Albumin mass conc 3.7 g/dL Normal 3.4 - 5.0 [facility] Comment on above: Performed By: #### T SH2 ####[id number] [place] [address] Anion gap 3 molar conc 15 mmol/L Normal 10 - 20 [facility] Comment on above: Performed By: #### T SH2 ####[id number] [place] [address] Calcium mass conc 9.0 mg/dL Normal 8.6 - 10.6 [facility] Comment on above: Performed By: #### T SH2 ####[id number] [place] [address] Chloride molar conc 102 mmol/L Normal 98 - 107 [facility] Comment on above: Performed By: #### T SH2 ####[id number] [place] [address] Creatinine mass conc 1.53 mg/dL High 0.50 - 1.30 [facility] Comment on above: Performed By: #### T SH2 ####[id number] [place] [address] GFR- AM. 56 mL/min/1.73m2 Abnormal >60 [facility] Comment on above: Result Comment: CALC ULATIONS OF ESTIMATED GFR ARE PERFORMED USING THE MDRD STUDY EQUATION FOR THE IDMS-TRACEABLE CREATININE METHODS. CLIN CHEM 2007;53:766-72 Performed By: #### T SH2 ####[id number] [place] [address] GFR-NON AM. 46 mL/min/1.73m2 Abnormal >60 [facility] Comment on above: Performed By: #### T SH2 ####[id number] [place] [address] Glucose mass conc 226 mg/dL High 74 - 99 [facility] Comment on above: Performed By: #### T SH2 ####[id number] [place] [address] HCO3 molar conc (Bld) 25 mmol/L Normal 21 - 32 [facility] Comment on above: Performed By: #### T SH2 ####[id number] [place] [address] Phosphate mass conc 4.0 mg/dL Normal 2.5 - 4.9 [facility] Comment on above: Result Comment: The performance characteristics of phosphorus testing in heparinized plasma have been validated by the individual laboratory site where testing is performed. Testing on heparinized plasma is not approved by the FDA; however, such approval is not necessary. Performed By: #### T SH2 ####[id number] [place] [address] Potassium molar conc 4.2 mmol/L Normal 3.5 - 5.3 [facility] Comment on above: Performed By: #### T SH2 ####[id number] [place] [address] Sodium molar conc 138 mmol/L Normal 136 - 145 [facility] Comment on above: Performed By: #### T SH2 ####[id number] [place] [address] Urea nitrogen mass conc 24 mg/dL High 6 - 23 [facility] Comment on above: Performed By: #### T SH2 ####[id number] [place] [address] CBCon 03-22-2018 Erythrocyte distribution width Auto Ratio (RBC) 12.8 % Normal 11.5 - 14.5 [facility] Comment on above: Performed By: #### L IPID ####[id number] [place] [address] Hematocrit Auto Volume Fraction (Bld) 38.0 % Low 41.0 - 52.0 [facility] Comment on above: Performed By: #### L IPID ####[id number] [place] [address] Hemoglobin mass conc (Bld) 12.8 g/dL Low 13.5 - 17.5 [facility] Comment on above: Performed By: #### L IPID ####[id number] [place] [address] MCHC Auto mass conc (RBC) 33.7 g/dL Normal 32.0 - 36.0 [facility] Comment on above: Performed By: #### L IPID ####[id number] [place] [address] MCV Auto Entitic volume (RBC) 93 fL Normal 80 - 100 [facility] Comment on above: Performed By: #### L IPID ####[id number] [place] [address] Nucleated RBC/100 WBC Ratio (Bld) 0.0 /100 WBC Normal 0.0-0.0 [facility] Comment on above: Performed By: #### L IPID ####[id number] [place] [address] Platelets Auto #/vol (Bld) 214 10*3/uL Normal 150 - 450 [facility] Comment on above: Performed By: #### L IPID ####[id number] [place] [address] RBC Auto #/vol (Bld) 4.07 x10E12/L Low 4.50 - 5.90 [facility] Comment on above: Performed By: #### L IPID ####[id number] [place] [address] WBC Auto #/vol (Bld) 7.3 10*3/uL Normal 4.4 - 11.3 [facility] Comment on above: Performed By: #### L IPID ####[id number] [place] [address] Erythrocyte distribution width Auto Ratio (RBC) 12.9 % Normal 11.5 - 14.5 [facility] Comment on above: Performed By: #### R ENAL ####[id number] [place] [address] Hematocrit Auto Volume Fraction (Bld) 40.8 % Low 41.0 - 52.0 [facility] Comment on above: Performed By: #### R ENAL ####[id number] [place] [address] Hemoglobin mass conc (Bld) 13.5 g/dL Normal 13.5 - 17.5 [facility] Comment on above: Performed By: #### R ENAL ####[id number] [place] [address] MCHC Auto mass conc (RBC) 33.1 g/dL Normal 32.0 - 36.0 [facility] Comment on above: Performed By: #### R ENAL ####[id number] [place] [address] MCV Auto Entitic volume (RBC) 94 fL Normal 80 - 100 [facility] Comment on above: Performed By: #### R ENAL ####[id number] [place] [address] Nucleated RBC/100 WBC Ratio (Bld) 0.0 /100 WBC Normal 0.0-0.0 [facility] Comment on above: Performed By: #### R ENAL ####[id number] [place] [address] Platelets Auto #/vol (Bld) 241 10*3/uL Normal 150 - 450 [facility] Comment on above: Performed By: #### R ENAL ####[id number] [place] [address] RBC Auto #/vol (Bld) 4.35 x10E12/L Low 4.50 - 5.90 [facility] Comment on above: Performed By: #### R ENAL ####[id number] [place] [address] WBC Auto #/vol (Bld) 9.4 10*3/uL Normal 4.4 - 11.3 [facility] Comment on above: Performed By: #### R ENAL ####[id number] [place] [address] Daily Progress Note-Yann chavez 03-22-2018 Protein mass conc Service: Cardiology Subjective Data:DON ELKINS is a 67 year old Male who is Hospital Day # 5. Additional Information:Creatinine up to 1.66 etiology, BS 200s over past 24 hours - NPO after MN for IVC filter tomorrow- Hold Heparin starting at 0600- Glargine insulin 20 units x1 today- Adjust Hydrocortisone per Endo recs Objective Data: Objective Information:T NPHEFrE7Bnvjl87.26998662/8895% Date/Time03/22 12: 12: 12: 12: 12:00Range(36C - 36.4C ) (73 - 83 ) (17 - 18 ) (120 - 188 )/ (57 - 99 ) (93% -99% ) Pain with Activity reported at 03/21 15:25: 0Pain at Rest reported at 03/21 15:25: 0 Mjkmiao41/4 3:13: Weight in kg (Weight (kg)) 108.611/4 3:13: Weight in lbs ((lbs)) 239.4 Physical Exam: Constitutional: Resting in bed, NADHead/Neck: No JVDRespiratory/Thorax: CTABCardiovascular: RRR, S1 X1Uljttfojdmebnamo: soft, NT/NDExtremities: No edemaNeurological: alert and oriented z3Khgiclkwkhkrz: Appropriate mood and behaviorSkin: psoriasis plaque over [...] Bolus) Injectable: 4000 unit(s) IntraVenous Push Every 0Etzrk5. Hydrocortisone: 2.5 mg Oral 9. Hydrocortisone: 30 [...] Times a Day18. Sodium Chloride 0.65% Nasal [place]: 2 spray(s) Each Nostril 2 Times aDay PRN Medications -- 1. Dextrose 50% in Water Injectable: 25 gram(s) IntraVenous Push Every 71Ryhbuhs5. Glucagon Injectable: 1 mg IntraMuscular Every 15 Minutes Currently Suspended Medications -- 1. Chlorhexidine Gluconate 0.12% Mucous Mem: 15 mL Topical Morning andEvening2. Hydrocortisone: 10 mg Oral 3. Hydrocortisone: 5 mg Oral Recent Lab Results: Results: I have reviewed these laboratory results: Glucose_POCT Trending View Eopdyu12-Xcu-3542 11:44:00 22-Mar-2018 07:52:00 21-Mar-2018 21:58:00Glucose-BHCU934 H 183 H 220 H Complete Blood [...] A4C: 17.4cm2LA Area A2C: 14.2 cm2LA [place] A4C: 6.0 cmLA [place] A2C: 4.7 cmLA Volume Index: 15.2 ml/m2RA VOLUME BY A/L METHOD: Normal Ranges:RA Area A4C: 12.8 xm4N-WZSX MEASUREMENTS: Normal Ranges:Ao Root: 2.90 cm (2.0-3.7cm)LAs: [...] T2DM, Addisson's, GERD, prostate ca s/p prostatectomy wi0016, hypothyroidism, psoriasis, and most recently diagnosed with a PE andmultivessel CAD transferred to medicine at [facility] from [facility] on03/18 for CABG eval. Multiple PEs- [...] disease- Reduce fludrocortisone to 0.05 mg MWFSun- 03/20 Reduce hydrocortisone to 10mg/5mg/2.5mg GERD- Continue home PPI HTN- Holding LAUREN- 03/20 Increase Carvedilol to 12.5mg BID- 120/57 - 167/93 over past 24 hours DLD- Atorva 40mg- lipids 155/44/82/141 HypothyroidismTSH 2.51- Continue home levothyroxine TIFFNAI- MICHELLE- Adm Creatinine 1.42- Today 1.66 [1.38, 1.36] GI ppx: on PPICode status: Full Electronic Signatures:Vito Patino (LOCKSTITCH BINDER-BUTTERMILK DRIER OPERATOR) (Signed 22-Mar-2018 14:13)Authored: Service, Subjective Data, Objective Data, Assessment and Plan,Signature/Cosignature/Att estationSPatience decker) (Signed 22-Mar-2018 15:25)Co-Signer: Service, Subjective Data, Objective Data, Assessment and Plan,Signature/Cosignature/Att estation Last Updated: 22-Mar-2018 15:25 by Patience Sow) Normal [facility] Daily Progress Note-Endocrin ologyon 03-22-2018 Protein mass conc Consult Type: subseq uent visit/care Service: Endocrinology Subjective Data:DON ELKINS is a 67 year old Male who is Hospital Day # 5. No acute events.IVC filter placement tomorrow. Objective Data: Objective Information:T JTVWRcM2Fpgcq19.98392247/8895% Date/Time03/22 12: 12: 12: 12: 12:00Range(36C - 36.4C ) (73 - 83 ) (17 - 18 ) (120 - 188 )/ (57 - 99 ) (93% -99% ) Pain with Activity reported at 03/21 15:25: 0Pain at Rest reported at 03/21 15:25: 0 Physical Exam: Constitutional: Well developed, [...] Bolus) Injectable: 4000 unit(s) IntraVenous Push Every 8Bkigk6. Hydrocortisone: 10 mg Oral 9. Hydrocortisone: 5 [...] Times a Day18. Sodium Chloride 0.65% Nasal [place]: 2 spray(s) Each Nostril 2 Times aDay PRN Medications -- 1. Dextrose 50% in Water Injectable: 25 gram(s) IntraVenous Push Every 00Enknduu6. Glucagon Injectable: 1 mg IntraMuscular Every 15 Minutes Currently Suspended Medications -- 1. Chlorhexidine Gluconate 0.12% Mucous Mem: 15 mL Topical Morning andEvening Recent Lab Results: Results: I have reviewed these laboratory results: Glucose_POCT Trending View Gsjomd99-Qpa-2899 11:44:00 22-Mar-2018 07:52:00 21-Mar-2018 21:58:00 21-Mar-2018 15:52:00 21-Mar-2018 12:06:00 21-Mar-2018 08:37:00Glucose-MTXK404 H 183 H 220 H 269 H [...] a past medicalhistory of HTN, HLD, T2DM, Ontario's disease, hypothyroidism, COPD, AKASH onCPAP, prostate ca s/p prostatectomy in 2011, and psoriasis who was [facility] from [facility] on 03/18 forCABG eval.Endocrine consulted fr evaluation of Ontario disease and treatment periop Patient was on supra-therapeutic dose of HCT 20-0-20 , fludrocortisone 0.1 ,mgdailyPatient has uncontrolled HTN and uncontrolled BSMost likely tomorrow (03/23) IVC filter placement Recommendations:1. Ontario's Disease-- Decrease Fludrocortisone to 0.05 mg 4 times weekly ( and friday)-- Continue Hydrocortisone to 10-5-2.5 mg at 6cc-73ua-5qu DAILY-- On day of IVC filter placement, [...] diet -will follow Please page with questions [phone] Patient seen and examined, plan discussed with [...] patient (as noted in the above attestation) [id number] Electronic Signatures:Starr Quevedo) (Signed 23-Mar-2018 12:38)Authored: Signature/Cosignature/Attestat ionCo-Signer: Service, Subjective Data, Objective Data, Assessment and Plan,Signature/Cosignature/Att estationJob Torres (Resident)) (Signed 22-Mar-2018 12:13)Authored: Service, Subjective Data, Objective Data, Assessment and Plan,Signature/Cosignature/Att estation Last Updated: 23-Mar-2018 12:38 by Starr Quevedo) Normal [facility] GLUCOSE-POCTon 03-22-2018 Glucose mass conc 275 mg/dL High 74 - 99 [facility] Comment on above: Performed By: #### L IPID ####[id number] [place] [address] Glucose mass conc 276 mg/dL High 74 - 99 [facility] Comment on above: Performed By: #### L IPID ####[id number] [place] [address] Glucose mass conc 308 mg/dL High 74 - 99 [facility] Comment on above: Performed By: #### L IPID ####[id number] [place] [address] Glucose mass conc 183 mg/dL High 74 - 99 [facility] Comment on above: Performed By: #### L IPID ####[id number] [place] [address] HEPARIN ASSAY,UFHon 03-22-20 18 HEPARIN ASSAY,UFH 0.2 IU/mL Normal [facility] Comment on above: Result Comment: The therapeutic reference range for UFH may be either 0.3-0.6 IU/mL or 0.3-0.7 IU/mL based on the clinical setting for anticoagulant therapy and the associated nomogram used. For heparin dosing guidelines based on clinical scenario and Heparin Assay results, please refer to local Pharmacy and the [facility] Guidelines for Anticoagulation therapy available on the [facility] intranet at:[email or web address]/Pages/[place]_Guidelines_for_Anticoagu.aspx Performed By: #### L IPID ####[id number] [place] [address] PROSTATE SPECIFIC AGon 03-22 Prostate specific Ag mass conc ng/mL Normal 0.00 - 4.00 [facility] Comment on above: Result Comment: The FDA requires that the method used for PSAassay be reported to the physician. Valuesobtained with different assay methods must notbe used interchangeably. uses the ADVIACircassiaaur PSA method, which is a sandwichimmunoassay using chemiluminescence forquantitation. The assay is approved formeasurement of prostate-specific antigen (PSA)in serum and may be used in conjunction witha digital rectal examination in men 50 yearsand older as an aid in detection of prostatecancer. Performed By: #### L IPID ####[id number] [place] [address] RENAL FUNCTION PANELon 03-22 Albumin mass conc 3.8 g/dL Normal 3.4 - 5.0 [facility] Comment on above: Performed By: #### R ENAL ####[id number] [place] [address] Anion gap 3 molar conc 18 mmol/L Normal 10 - 20 [facility] Comment on above: Performed By: #### R ENAL ####[id number] [place] [address] Calcium mass conc 9.2 mg/dL Normal 8.6 - 10.6 [facility] Comment on above: Performed By: #### R ENAL ####[id number] [place] [address] Chloride molar conc 102 mmol/L Normal 98 - 107 [facility] Comment on above: Performed By: #### R ENAL ####[id number] [place] [address] Creatinine mass conc 1.66 mg/dL High 0.50 - 1.30 [facility] Comment on above: Performed By: #### R ENAL ####[id number] [place] [address] GFR- AM. 50 mL/min/1.73m2 Abnormal >60 [facility] Comment on above: Result Comment: CALC ULATIONS OF ESTIMATED GFR ARE PERFORMED USING THE MDRD STUDY EQUATION FOR THE IDMS-TRACEABLE CREATININE METHODS. CLIN CHEM 2007;53:766-72 Performed By: #### R ENAL ####[id number] [place] [address] GFR-NON AM. 41 mL/min/1.73m2 Abnormal >60 [facility] Comment on above: Performed By: #### R ENAL ####[id number] [place] [address] Glucose mass conc 257 mg/dL High 74 - 99 [facility] Comment on above: Performed By: #### R ENAL ####[id number] [place] [address] HCO3 molar conc (Bld) 24 mmol/L Normal 21 - 32 [facility] Comment on above: Performed By: #### R ENAL ####[id number] [place] [address] Phosphate mass conc 4.0 mg/dL Normal 2.5 - 4.9 [facility] Comment on above: Result Comment: The performance characteristics of phosphorus testing in heparinized plasma have been validated by the individual laboratory site where testing is performed. Testing on heparinized plasma is not approved by the FDA; however, such approval is not necessary. Performed By: #### R ENAL ####[id number] [place] [address] Potassium molar conc 4.5 mmol/L Normal 3.5 - 5.3 [facility] Comment on above: Performed By: #### R ENAL ####[id number] [place] [address] Sodium molar conc 139 mmol/L Normal 136 - 145 [facility] Comment on above: Performed By: #### R ENAL ####[id number] [place] [address] Urea nitrogen mass conc 29 mg/dL High 6 - 23 [facility] Comment on above: Performed By: #### R ENAL ####[id number] [place] [address] TYPE + SCREENon 03-22-2018 ABO TYPE A Normal [facility] Comment on above: Performed By: #### L IPID ####[id number] [place] [address] RH TYPE Positive Normal [facility] Comment on above: Performed By: #### L IPID ####[id number] [place] [address] Daily Progress Note-Cardiolo gyon 03-21-2018 Protein mass conc Service: Cardiology Subjective Data:DON ELKINS is a 67 year old Male who is Hospital Day # 4. Additional Information:Has been up ambulating in [place], denies CP, SOB, remains on Heparin gtt. - Plan for IVC filter placement Friday- will adjust hydrocortisone while NPO- c/w Heparin gtt until next week- Tentative plan for CABG with Dr. Gaston 03/30- Advised to follow up with age appropriate cancer screening (colonoscopy)- plan for 3-6 months anticoagulation (1st episode unprovoked PE) Objective Data: Objective Information:T CQEMIyO6Wusss365979032/7997%Da te/Time03/21 12: 12: 12: 12: 12:00Range(36C - 36.5C ) (78 - 90 ) (18 - 21 ) (134 - 171 )/ (73 - 102 ) (96%- 97% ) Pain with Activity reported at 03/21 8:30: 0Pain at Rest reported at 03/21 8:30: 0 Nokczug85/3 4:19: Weight in kg (Weight (kg)) 108.711 4:19: Weight in lbs ((lbs)) 239.6 Physical Exam: Constitutional: Resting in bed, NADHead/Neck: No JVDRespiratory/Thorax: CTABCardiovascular: RRR, S1 W0Kwokntujlxreluxl: soft, NT/NDExtremities: No edemaNeurological: alert and oriented e3Uxrdejkrrdxsh: Appropriate mood and behaviorSkin: psoriasis plaque over [...] Bolus) Injectable: 4000 unit(s) IntraVenous Push Every 0Hmzyt0. Hydrocortisone: 10 mg Oral 9. Hydrocortisone: 5 [...] Times a Day17. Sodium Chloride 0.65% Nasal [place]: 2 spray(s) Each Nostril 2 Times aDay PRN Medications -- 1. Dextrose 50% in Water Injectable: 25 gram(s) IntraVenous Push Every 02Mdhrohg9. Glucagon Injectable: 1 mg IntraMuscular Every 15 Minutes Recent Lab Results: Results: I have reviewed these laboratory results: Glucose_POCT Trending View Olnenj52-Ppm-0414 12:06:00 21-Mar-2018 08:37:00Glucose-BODI005 H 192 H Heparin assay, UFH Trending View Dkfuyn90-Nqc-9342 07:10:00 21-Mar-2018 03:30:00 20-Mar-2018 22:05:00Heparin assay, UFH0.4 [...] A4C: 17.4cm2LA Area A2C: 14.2 cm2LA [place] A4C: 6.0 cmLA [place] A2C: 4.7 cmLA Volume Index: 15.2 ml/m2RA VOLUME BY A/L METHOD: Normal Ranges:RA Area A4C: 12.8 qh4K-AIJH MEASUREMENTS: Normal Ranges:Ao Root: 2.90 cm (2.0-3.7cm)LAs: [...] T2DM, Addisson's, GERD, prostate ca s/p prostatectomy oe0177, hypothyroidism, psoriasis, and most recently diagnosed with a PE andmultivessel CAD transferred to medicine at [facility] from [facility] on03/18 for CABG eval. Multiple PEs- [...] Plan for CABG with Dr. Gaston week 03/30 s/p recent root canal- orthopantogram T2DM- Holding home Metformin- SSI and hypoglycemia protocol- A1C 7.9%- BS 195, 234, 243, 192- likely to improved with reducing Hydrocortisone dose Ontario's disease- Reduce fludrocortisone to 0.05 mg daily- Reduce hydrocortisone to 10mg/5mg/2.5mg- Follow Endocrine recs when NPO GERD- Continue home PPI HTN- Holding LAUREN- 159/83 - 171/102 over past 24 hours- 03/20 Increase Carvedilol to 12.5mg BID- Monitor BP with reducing Florinef dose DLD- Atorva 40mg- lipids 155/44/82/141 HypothyroidismTSH 2.51- Continue home levothyroxine GI ppx: on PPICode status: Full Electronic Signatures:Vito Patino (LOCKSTITCH BINDER-BUTTERMILK DRIER OPERATOR) (Signed 21-Mar-2018 14:04)Authored: Service, Subjective Data, Objective Data, Assessment and Plan,Signature/Cosignature/Att estationSPatience decker) (Signed 22-Mar-2018 13:55)Co-Signer: Service, Subjective Data, Objective Data, Assessment and Plan,Signature/Cosignature/Att estation Last Updated: 22-Mar-2018 13:55 by Patience Sow) Normal [facility] Daily Progress Note-Endocrin ologyon 03-21-2018 Protein mass conc Consult Type: subseq uent visit/care Service: Endocrinology Subjective Data:DON ELKINS is a 67 year old Male who is Hospital Day # 4. Patient is doing okay today. Mo Complaints.His CABG was postponed.Possible IVC filter early next week. Objective Data: Objective Information:T HYAZXvY8Djkmi48.95762555/8197% Date/Time03/21 8: 8: 8: 8: 8:00Range(36.3C - [...] Bolus) Injectable: 4000 unit(s) IntraVenous Push Every 5Afami5. Hydrocortisone: 10 mg Oral 9. Hydrocortisone: 5 [...] Water Injectable: 25 gram(s) IntraVenous Push Every 48Etxfmtv3. Glucagon Injectable: 1 mg IntraMuscular Every 15 Minutes Recent Lab Results: Results: I have reviewed these laboratory results: Glucose_POCT Trending View Nprygi34-Xce-2359 08:37:00 20-Mar-2018 17:30:00 20-Mar-2018 13:24:00 20-Mar-2018 08:28:00 19-Mar-2018 21:30:00 19-Mar-2018 18:25:00Glucose-DMIX374 H 243 H 234 H 195 H 308 H 226 H Complete Blood Count Trending View Tjxoof84-Wbg-0523 19:09:00 19-Mar-2018 17:57:00White Blood Cell Count11.0 10.8Nucleated Erythrocyte Count0.0 0.0Red Blood Cell Count4.48 L 4.32 LHGB14.0 13.4 LHCT40.8 L 39.6 LMCV91 13VSSS74.3 33.4EFV958 259RDW-CV13.1 13.0 Renal Function Panel Trending View Cqdupx42-Gjq-6690 19:09:00 19-Mar-2018 17:57:00Glucose, Zxlur112 H 229 MQY175 137K4.0 3.8DJ405 102Bicarbonate, Serum24 23Anion Gap, Serum16 12BRB80 25 HCREAT1.38 H 1.36 HGFR-Non Ubnndagi37 A 52 AGFR- Isftzqyv49 63Calcium, Serum9.0 9.4Phosphorus, Serum4.3 3.6ALB3.9 3.9 Assessment and Plan:Assessment: Mr. Elkins is a 67 yo WM with no known history of CAD, who has a past medicalhistory of HTN, HLD, T2DM, Brigida's disease, hypothyroidism, COPD, AKASH onCPAP, prostate ca s/p prostatectomy in 2011, and psoriasis who was [facility] on 03/18 forLABG marshall.Endocrine consulted fr evaluation of Brigida disease and treatment periop Patient is o supra-therapeutic dose of HCT 20-0-20 , fludrocortisone 0.1 ,mgdailyPatient has uncontrolled HTN and uncontrolled BS REcs:-Continue Fludrocortisone to 0.05 mg daily- Continue Hydrocortisone to 10-5-2.5 mg at 2uo-60se-4nv DAILY-- On day of IVC filter placement, [...] surgery please.-will follow Please page with questions [phone] Patient seen and examined, plan discussed with [...] patient (as noted in the above attestation) [id number] Electronic Signatures:Starr Quevedo) (Signed 23-Mar-2018 12:34)Authored: Signature/Cosignature/Attestat ionCo-Signer: Service, Subjective Data, Objective Data, Assessment and Plan,Signature/Cosignature/Att estationJob Torres (Resident)) (Signed 21-Mar-2018 11:41)Authored: Service, Subjective Data, Objective Data, Assessment and Plan,Signature/Cosignature/Att estation Last Updated: 23-Mar-2018 12:34 by Starr Quevedo) Normal [facility] Daily Progress Note-Pulmonol ogyon 03-21-2018 Daily Progress Note-Pulmonology Service: Pulmonology Subjective Data:DON ELKINS is a 67 year old Male who is Hospital Day # 4. Additional Information:Pt denies any active complaints. has been ambulatory [facility] w/o CP/SOB.Previously, on occassion would have bleeding gums, but has not noticed anysince starting heparin. Reports cough, no sputum production. Objective Data: Objective Information:T RQDZUxI8Jjtor780365076/7997%Da te/Time03/21 12: 12: 12: 12: 12:00Range(36C - 36.5C ) (78 - 90 ) (18 - 21 ) (134 - 171 )/ (73 - 102 ) (96%- 97% ) Pain with Activity reported at 03/21 8:30: 0Pain at Rest reported at 03/21 8:30: 0T UQRZBkQ4Puctm357990566/7997%Da te/Time03/21 12: 12: 12: 12: 12:00Range(36C - [...] Bolus) Injectable: 4000 unit(s) IntraVenous Push Every 1Dpooi0. Hydrocortisone: 10 mg Oral 9. Hydrocortisone: 5 [...] Water Injectable: 25 gram(s) IntraVenous Push Every 17Yypviwl5. Glucagon Injectable: 1 mg IntraMuscular Every 15 Minutes Recent Lab Results: Results: I have reviewed these laboratory results: Glucose_POCT Trending View Jgwrks25-Avj-9947 12:06:00 -Mar-2018 08:37:00Glucose-CCRY257 H 192 H Heparin assay, UFH Trending View Ghnztl97-Sxv-3398 07:10:00 21-Mar-2018 03:30:00Heparin assay, UFH0.4 0.4 Assessment [...] discussed with Dr. Floyd call with questions [phone] Signature/Cosignature/Attestat ion:Attending AttestationI saw and evaluated the [...] patient (as noted in the above attestation) [id number] Electronic Signatures:Angie Fuentes) (Signed 03-Apr-2018 14:11)Authored: Signature/Cosignature/Attestat ionCo-Signer: Assessment and Plan, Signature/Cosignature/Attestat Joseph Perez (Fellow)) (Signed 21-Mar-2018 13:00)Authored: Service, Subjective Data, Objective Data, Assessment and Plan,Signature/Cosignature/Att estation Last Updated: 03-Apr-2018 14:11 by Angie Fuentes) Normal [facility] GLUCOSE-POCTon 03-21-2018 Glucose mass conc 220 mg/dL High 74 - 99 [facility] Comment on above: Performed By: #### R ENAL ####[id number] [place] [address] Glucose mass conc 269 mg/dL High 74 - [address] [place] [address] Comment on above: Performed By: #### R ENAL ####[id number] [place] [address] Glucose mass conc 255 mg/dL High 74 - 99 [facility] Comment on above: Performed By: #### R ENAL ####[id number] [place] [address] Glucose mass conc 192 mg/dL High 74 - 99 [facility] Comment on above: Performed By: #### R ENAL ####[id number] [place] [address] HEPARIN ASSAY,UFHon 03-21-20 18 HEPARIN ASSAY,UFH 0.3 IU/mL Normal [facility] Comment on above: Result Comment: The therapeutic reference range for UFH may be either 0.3-0.6 IU/mL or 0.3-0.7 IU/mL based on the clinical setting for anticoagulant therapy and the associated nomogram used. For heparin dosing guidelines based on clinical scenario and Heparin Assay results, please refer to local Pharmacy and the [facility] Guidelines for Anticoagulation therapy available on the [facility] intranet at:[email or web address]/Pharmacy/[email or web address]_Guidelines_for_Anticoagu.aspx Performed By: #### R ENAL ####[id number] [place] [address] HEPARIN ASSAY,UFH 0.4 IU/mL Normal [facility] Comment on above: Result Comment: The therapeutic reference range for UFH may be either 0.3-0.6 IU/mL or 0.3-0.7 IU/mL based on the clinical setting for anticoagulant therapy and the associated nomogram used. For heparin dosing guidelines based on clinical scenario and Heparin Assay results, please refer to local Pharmacy and [facility] Guidelines for Anticoagulation therapy available on the [facility] intranet at:[email or web address]/Pharmacy/Pages/[facility]_Guidelines_for_Anticoagu.aspx Performed By: #### R ENAL ####[id number] [place] [address] HEPARIN ASSAY,UFH 0.4 IU/mL Normal [facility] Comment on above: Result Comment: The therapeutic reference range for UFH may be either 0.3-0.6 IU/mL or 0.3-0.7 IU/mL based on the clinical setting for anticoagulant therapy and the associated nomogram used. For heparin dosing guidelines based on clinical scenario and Heparin Assay results, please refer to local Pharmacy and [facility] Guidelines for Anticoagulation therapy available on the [facility] intranet at:[email or web address]/[email or web address]_Guidelines_for_Anticoagu.aspx Performed By: #### C OAGS ####[id number] [place] [address] HEPARIN ASSAY,UFH 0.2 IU/mL Normal [facility] Comment on above: Result Comment: The therapeutic reference range for UFH may be either 0.3-0.6 IU/mL or 0.3-0.7 IU/mL based on the clinical setting for anticoagulant therapy and the associated nomogram used. For heparin dosing guidelines based on clinical scenario and Heparin Assay results, please refer to local Pharmacy and the [facility] Guidelines for Anticoagulation therapy available on the [facility] intranet at:[email or web address]/[email or web address]_Guidelines_for_Anticoagu.aspx Performed By: #### C OAGS ####[id number] [place] [address] CBCon 03-20-2018 Erythrocyte distribution width Auto Ratio (RBC) 13.1 % Normal 11.5 - 14.5 [facility] Comment on above: Performed By: #### C OAGS ####[id number] [place] [address] Hematocrit Auto Volume Fraction (Bld) 40.8 % Low 41.0 - 52.0 [facility] Comment on above: Performed By: #### C OAGS ####[id number] [place] [address] Hemoglobin mass conc (Bld) 14.0 g/dL Normal 13.5 - 17.5 [facility] Comment on above: Performed By: #### C OAGS ####[id number] [place] [address] MCHC Auto mass conc (RBC) 34.3 g/dL Normal 32.0 - 36.0 [facility] Comment on above: Performed By: #### C OAGS ####[id number] [place] [address] MCV Auto Entitic volume (RBC) 91 fL Normal 80 - 100 [facility] Comment on above: Performed By: #### C OAGS ####[id number] [place] [address] Nucleated RBC/100 WBC Ratio (Bld) 0.0 /100 WBC Normal 0.0-0.0 [facility] Comment on above: Performed By: #### C OAGS ####[id number] [place] [address] Platelets Auto #/vol (Bld) 252 10*3/uL Normal 150 - 450 [facility] Comment on above: Performed By: #### C OAGS ####[id number] [place] [address] RBC Auto #/vol (Bld) 4.48 x10E12/L Low 4.50 - 5.90 [facility] Comment on above: Performed By: #### C OAGS ####[id number] [place] [address] WBC Auto #/vol (Bld) 11.0 10*3/uL Normal 4.4 - 11.3 [facility] Comment on above: Performed By: #### C OAGS ####[id number] [id number] Clinical Event Note-Regardin g PE per Dr. Angel 03-20-2018 Clinical Event Note-Regarding PE per Dr. Yu Event:Topic: Regarding PE per Dr. YuDetails:Per Dr. Yu would like IVC Filter placed today 03/20/2018, and ideallystabilization for one week would be optimal.Will advice Dr. Gaston. Provider / Team Contact Information:Provider/Team Contact Info-Pager Number: cardiac surgery [phone] Electronic Signatures:Gilda Tai (LOCKSTITCH BINDER-BUTTERMILK DRIER OPERATOR) (Signed 20-Mar-2018 11:53)Authored: Event, Provider / Team Contact Information Last Updated: 20-Mar-2018 11:53 by Gilda Tai (LOCKSTITCH BINDER-BUTTERMILK DRIER OPERATOR) Normal [facility] Consult-Endocrinologyon - Consult-Endocrino logy Service:Service: Endocrinology History of Present Illness:Admission Reason: Transferred for CABG evalHPI:PCP: Sal Hernandez (jaleesa) - Levi Sinha: [place] 67 yo WM with no known history of CAD, who has a past medical history of HTN,HLD, T2DM, Brigida's disease, hypothyroidism, COPD, AKASH on CPAP, prostate spring/p prostatectomy in 2011, and psoriasis who was transferred to [facility], INCI service [facility] from [facility] on 03/18 for CABG eval. Family history significant for [place], [place], CHF, HTN, DM and DLD. He quit hlpgbaq65 years ago. Has an occasional beer, and denies any drug use. 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 Endocrine Consulted for evalaution of Brigida disease and HCt dosing preop. 12 points ROS obtained and negative unless otherwise stated above Outside Hospital cardiac work up:CTA at [facility]:Pulmonary emboli involving the bilateral lobar segmental, and severalsubsegmental branches (RUL, RML, RLL, FIDEL, LLL). TTE at [facility] 03/15/18:EF 60-65% PMH: HTN, HLD, T2DM, Brigida's [...] microscopic hematuria, rootcanal 2 weeks ago. FHx: CAD/AL, cancer, DM, HTN, migraines, CVA Social: former [...] No Known Allergies: Objective: Objective Information: T BIUWUpG5Vddkp40.45822282/7496% Date/Time03/20 11: 11: 11: 11:0703/20 11:07Range(36.1C - 37.1C ) (67 - 90 ) (16 - 18 ) (119 - 174 )/ (74 - 101 )(95% - 97% )Highest temp of 37.1 C was recorded at 03/20 5:35 Physical Exam: Constitutional: central obesity , moonlike Facies , acanthosis nigricans, skintags , Supraclavicular fat xvzns2a4 RRRBP high up to 170 systolic in [...] Bolus) Injectable: 4000 unit(s) IntraVenous Push Every 0Qnboe8. Hydrocortisone: 20 mg Oral 2 Times a Day9. Influenza Virus (Inactive) HIGH DOSE Adult Vaccine: 0.5 mL YhdcoLjjroeinFacd09. Insulin Lispro Mild Corrective Scale: unit(s) SubCutaneous 3 Times a DayBefore Meals11. Levothyroxine: 150 microgram(s) Oral Daily12. Mupirocin 2%: 0.5 application(s) Each Nostril 2 Times a Day13. Pantoprazole: 40 mg Oral Daily14. Polyethylene Glycol: 17 gram(s) Oral Daily15. rOPINIRole: 2 mg Oral 3 Times a Day PRN Medications -- 1. Dextrose 50% in Water Injectable: 25 gram(s) IntraVenous Push Every 29Xmniyrz8. Glucagon Injectable: 1 mg IntraMuscular Every 15 Minutes Recent Lab Results: Results: I have reviewed these laboratory results: Glucose_POCT Trending View Lwcapg65-Kid-6836 08:28:00 19-Mar-2018 21:30:00 19-Mar-2018 18:25:00 19-Mar-2018 13:58:00 19-Mar-2018 08:27:00Glucose-UYJO387 H 308 H 226 H 175 H 172 H Renal Function Panel Trending View Htolml02-Ehq-5831 17:57:00 19-Mar-2018 00:39:00Glucose, Yqurg410 H 206 UMM299 138K3.9 4.3XB088 102Bicarbonate, Serum23 23Anion Gap, Serum16 51PKW79 H 85DYAIK8.36 H 1.42 HGFR-Non Hmtoituk68 A 50 AGFR- Bsphbemp70 61Calcium, Serum9.4 9.2Phosphorus, Serum3.6 3.5ALB3.9 4.1 Hepatic [...] 240 All ranges are based on fasting [facility] Cholesterol, Serum 44.5 . AGE VERY LOW [...] a past medical history of HTN,HLD, T2DM, Ontario's disease, hypothyroidism, COPD, AKASH on CPAP, prostate spring/p prostatectomy in 2011, and psoriasis who was transferred to [facility], INCI service [facility] from [facility] on 03/18 for CABG eval.Endocrine consulted fr evlaution of Ontario disease and treatment periop Patient is o supratherapeutic dose of HCT 20-0-20 , fludrocortisone 0.1 ,mgdailyPAtient has uncontrolled HTn and uncontrolled BS REcs:-Please decrease Fludro to 0.05 mg daily-Please change HCt to 10-5-2.5 mg at 5xy-45jr-7jf DAILY-On the day of the surgery please [...] patient (as noted in the above attestation) [id number] Electronic Signatures:Starr Quevedo) (Signed 21-Mar-2018 10:00)Authored: Signature/Cosignature/Attestat ionCo-Signer: Service, History of Present Illness, Allergies, Objective,Assessment/Recommend ations, Signature/Cosignature/Attestat Job Garrison ( (Resident)) (Signed 20-Mar-2018 11:37)Authored: Service, History of Present Illness, Allergies, ObjectiveHasmukh Stephenson ( (Resident)) (Signed 20-Mar-2018 16:47)Entered: Objective, Assessment/Recommendations,Sig nature/Cosignature/Attestation Authored: Service, History of Present Illness, Allergies, Objective,Assessment/Recommend ations, Signature/Cosignature/Attestat ion Last Updated: 21-Mar-2018 10:00 by Starr Quevedo) Normal [facility] Consult-Pulmonologyon 2017 Consult-Pulmonolo gy Service:Service: Pulmonology Consult:Consult [...] sided chest pain, associated with nausea. 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 He quit smoking 20 years ago.Social Hx: Has an occasional beer, and denies any drug use. 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 Hydrocortisone: 20 mg Oral 2 Times a Day9. Influenza Virus (Inactive) HIGH DOSE Adult Vaccine: 0.5 mL TrqffTdrxlwbgHvjd88. Insulin Lispro Mild Corrective Scale: unit(s) SubCutaneous 3 Times a DayBefore Meals11. Levothyroxine: 150 microgram(s) Oral Daily12. Mupirocin 2%: 0.5 application(s) Each Nostril 2 Times a Day13. Pantoprazole: 40 mg Oral Daily14. Polyethylene Glycol: 17 gram(s) Oral Daily15. rOPINIRole: 2 mg Oral 3 Times a Day PRN Medications -- 1. Dextrose 50% in Water Injectable: 25 gram(s) IntraVenous Push Every 81Zygsewp4. Glucagon Injectable: 1 mg IntraMuscular Every 15 [...] -0.5Bicarbonate, Calculated, Arterial 24.2 Radiology Results: Results: Conclusion:[facility] PVR (Arterial Physiologic) BROO[facility] [Mar 20 [...] A4C: 17.4cm2LA Area A2C: 14.2 cm2LA [place] A4C: 6.0 cmLA [place] A2C: 4.7 cmLA Volume Index: 15.2 ml/m2RA VOLUME BY A/L METHOD: Normal Ranges:RA Area A4C: 12.8 bu5B-RFPY MEASUREMENTS: Normal Ranges:Ao Root: 2.90 cm (2.0-3.7cm)LAs: [...] patient (as noted in the above attestation) [id number]/ Additional FindingsConsulted for unprovoked PE. MOdest clot [...] 21-Mar-2018 11:03 by Zac Yu (DO) Normal [facility] Daily Progress Note-Cardiac Surgeryon 03-20-2018 Protein mass conc Consult Type: subseq uent visit/care Service: Cardiac Surgery Subjective Data:DON ELKINS is a 67 year old Male who is Hospital Day # 3. Objective Data: Objective Information:T YLECCkZ3Wmxaf49.40714296/13008 %Date/Time03/20 11: 16: 16: 16: 16:53Range(36.1C - 37.1C ) (67 - 90 ) (17 - 20 ) (119 - 174 )/ (74 - 102 )(96% - 97% )Highest temp of 37.1 C was recorded at 03/20 5:35 Pain with Activity reported at 03/20 20:26: 0Pain at Rest reported at 03/20 20:26: 0 Ywdqqzi61/2 5:35: Weight in kg (Weight (kg)) 108.911 [...] Bolus) Injectable: 4000 unit(s) IntraVenous Push Every 7Fkzok3. Hydrocortisone: 10 mg Oral 8. Hydrocortisone: 5 [...] Water Injectable: 25 gram(s) IntraVenous Push Every 68Bzzspia2. Glucagon Injectable: 1 mg IntraMuscular Every 15 [...] NEGATIVE CUTOFF LEVEL: 150 NG/ML The metabolite R-lypsp-qodslwsyuytlih (LAAM) is not detected by this method [...] Urine YELLOW Reference Range: STRAW,YELLOWAppearance, Urine CLEARSpecific [place], Urine 1.013pH, Urine 6.0Protein, Urine NEGATIVEGlucose, Urine [...] a past medical history of HTN,HLD, T2DM, Ontario's disease, hypothyroidism, COPD, AKASH on CPAP, prostate spring/p prostatectomy in 2011, and psoriasis [facility] on [facility]/18 for CABG eval. Ptpresented to [facility] with chest pressure and dyspnea. He as found to havebilat PEs, was started on Heparin gtt, and transferred to [facility]. He wasfound to have a troponin leak at 2.25. Cardiology was consulted and the patientwas diagnosed with ACS, NSTEMI. He underwent a TTE and cath. He had normal EF,mild AI, and triple vessel CAD so was transferred to [facility] for CABG eval.Cardiac surgery consulted 03/19 [...] clinically Signature/Cosignature/Attestat ion:Provider/Team Contact Info-Pager Numbercardiac surgery [phone] Electronic Signatures:Mary Munroe (LOCKSTITCH BINDER-BUTTERMILK DRIER OPERATOR) (Signed 20-Mar-2018 20:40)Authored: Service, Subjective Data, Objective Data, Assessment and Plan,Signature/Cosignature/Att estation Last Updated: 20-Mar-2018 20:40 by Mary Munroe (LOCKSTITCH BINDER-BUTTERMILK DRIER OPERATOR) Normal [facility] Daily Progress Note-Yann chavez 03-20-2018 Protein mass conc Service: Cardiology Subjective [...] Hydrocortisone per Endocrinology Objective Data: Objective Information:T OGXLTbB5Gissr28.15706407/66177 %Date/Time03/20 11: 16: 16: 16: 16:53Range(36.1C - 37.1C ) (67 - 90 ) (17 - 20 ) (119 - 174 )/ (74 - 102 )(96% - 97% )Highest temp of 37.1 C was recorded at 03/20 5:35 Pain with Activity reported at 03/20 8:30: 0Pain at Rest reported at 03/20 8:30: 0 Hramyne80/2 5:35: Weight in kg (Weight (kg)) 108.9105/20 5:35: Weight in lbs ((lbs)) 240 Physical Exam: Constitutional: Resting in bed, NADHead/Neck: No JVDRespiratory/Thorax: CTABCardiovascular: RRR, S1 U3Choukfztgkezmixa: soft, NT/NDExtremities: Right wrist site of catheterization intact, normal pulse. Noperipheral edemaNeurological: alert and oriented e6Ofigumnztyxzx: Appropriate mood and behaviorSkin: psoriasis plaque over [...] Bolus) Injectable: 4000 unit(s) IntraVenous Push Every 5Iojfg3. Hydrocortisone: 10 mg Oral 8. Hydrocortisone: 5 [...] Water Injectable: 25 gram(s) IntraVenous Push Every 07Zwnadsg3. Glucagon Injectable: 1 mg IntraMuscular Every 15 Minutes Recent Lab Results: Results: I have reviewed these laboratory results: Glucose_POCT Trending View Lfwdtd29-Rna-1389 17:30:00 20-Mar-2018 13:24:00 20-Mar-2018 08:28:00 19-Mar-2018 21:30:00 19-Mar-2018 18:25:00Glucose-JAZT554 H 234 H 195 H 308 H [...] A4C: 17.4cm2LA Area A2C: 14.2 cm2LA [place] A4C: 6.0 cmLA [place] A2C: 4.7 cmLA Volume Index: 15.2 ml/m2RA VOLUME BY A/L METHOD: Normal Ranges:RA Area A4C: 12.8 al9W-UOHE MEASUREMENTS: Normal Ranges:Ao Root: 2.90 cm (2.0-3.7cm)LAs: [...] T2DM, Addisson's, GERD, prostate ca s/p prostatectomy mk1914, hypothyroidism, psoriasis, and most recently diagnosed with a PE andmultivessel CAD transferred to medicine at [facility] from [facility] on03/18 for CABG eval. Multiple PEs- [...] 7.9%- BS 172, 175, 226, 308, 195 Ontario's disease- Reduce fludrocortisone to 0.05 mg daily- Reduce hydrocortisone to 10mg/5mg/2.5mg- Follow Endocrine recs pre op GERD- Continue home PPI HTN- Holding LAUREN- 120/79 - 171/93- Increase Carvedilol to 12.5mg BID- Monitor BP with reducing Florinef dose DLD- Atorva 40mg- lipids 155/44/82/141 HypothyroidismTSH 2.51- Continue home levothyroxine GI ppx: on PPICode status: Full Electronic Signatures:Vito Patino (LOCKSTITCH BINDER-BUTTERMILK DRIER OPERATOR) (Signed 20-Mar-2018 19:13)Authored: Service, Subjective Data, Objective Data, Assessment and Plan,Signature/Cosignature/Att Mor Vasquez) (Signed 01-Apr-2018 13:54)Co-Signer: Service, Subjective Data, Objective Data, Assessment and Plan,Signature/Cosignature/Att estation Last Updated: 01-Apr-2018 13:54 by Mor Calderon) Normal [facility] GLUCOSE-POCTon 03-20-2018 Glucose mass conc 243 mg/dL High 74 - 99 [facility] Comment on above: Performed By: #### C OAGS ####[id number] [place] [address] Glucose mass conc 234 mg/dL High 74 - 99 [facility] Comment on above: Performed By: #### C OAGS ####[id number] [place] [address] Glucose mass conc 195 mg/dL High 74 - 99 [facility] Comment on above: Performed By: #### C BC ####[id number] [place] [address] HEMOGLOBIN A1Con 03-20-2018 Glucose mass conc Canceled Normal [facility] Comment on above: Order Comment: TEST HEMOGLOBIN A1C WAS CANCELLED, 03/20/2018 18:41 DUPLICATE ORDER. Performed By: #### C OAGS ####[id number] [place] [address] Hemoglobin A1c/Hemoglobin.to romy mass fraction (Bld) Canceled Normal [facility] Comment on above: Order Comment: TEST HEMOGLOBIN A1C WAS CANCELLED, 03/20/2018 18:41 DUPLICATE ORDER. Result Comment: Diag nosis of Diabetes-Adults Non-Diabetic: < or = 5.6% Increased risk for developing diabetes: 5.7-6.4% Diagnostic of diabetes: > or = 6.5%. Monitoring of Diabetes Age (y) Therapeutic Goal (%) Adults: >18 <7.0 Pediatrics: 13-18 <7.5 7-12 <8.0 0- 6 7.5-8.5 [place]. Diabetes Care 33(S1), May 2009. Performed By: #### C OAGS ####[id number] [place] [address] HEPARIN ASSAY,UFHon 03-20-20 18 HEPARIN ASSAY,UFH 0.1 IU/mL Normal [facility] Comment on above: Result Comment: The therapeutic reference range for UFH may be either 0.3-0.6 IU/mL or 0.3-0.7 IU/mL based on the clinical setting for anticoagulant therapy and the associated nomogram used. For heparin dosing guidelines based on clinical scenario and Heparin Assay results, please refer to local Pharmacy and the [facility] Guidelines for Anticoagulation therapy available on the [facility] intranet at:[email or web address] Performed By: #### C OAGS ####[id number] [place] [address] MAGNESIUMon 03-20-2018 Magnesium mass conc Canceled Normal [facility] Comment on above: Order Comment: TEST MAGNESIUM WAS CANCELLED, 03/20/2018 08:04 NO SPECIMEN RECEIVED IN LAB. Performed By: #### C BC ####[id number] [place] [address] RENAL FUNCTION PANELon 03-20 Albumin mass conc 3.9 g/dL Normal 3.4 - 5.0 [facility] Comment on above: Performed By: #### C OAGS ####[id number] [place] [address] Anion gap 3 molar conc 16 mmol/L Normal 10 - 20 [facility] Comment on above: Performed By: #### C OAGS ####[id number] [place] [address] Calcium mass conc 9.0 mg/dL Normal 8.6 - 10.6 [facility] Comment on above: Performed By: #### C OAGS ####[id number] [place] [address] Chloride molar conc 102 mmol/L Normal 98 - 107 [facility] Comment on above: Performed By: #### C OAGS ####[id number] [place] [address] Creatinine mass conc 1.38 mg/dL High 0.50 - 1.30 [facility] Comment on above: Performed By: #### C OAGS ####[id number] [place] [address] GFR- AM. 62 mL/min/1.73m2 Normal >60 [facility] Comment on above: Result Comment: CALC ULATIONS OF ESTIMATED GFR ARE PERFORMED USING THE MDRD STUDY EQUATION FOR THE IDMS-TRACEABLE CREATININE METHODS. CLIN CHEM 2007;53:766-72 Performed By: #### C OAGS ####[id number] [place] [address] GFR-NON AM. 51 mL/min/1.73m2 Abnormal >60 [facility] Comment on above: Performed By: #### C OAGS ####[id number] [place] [address] Glucose mass conc 201 mg/dL High 74 - 99 [facility] Comment on above: Performed By: #### C OAGS ####[id number] [place] [address] HCO3 molar conc (Bld) 24 mmol/L Normal 21 - 32 [facility] Comment on above: Performed By: #### C OAGS ####[id number] [place] [address] Phosphate mass conc 4.3 mg/dL Normal 2.5 - 4.9 [facility] Comment on above: Result Comment: The performance characteristics of phosphorus testing in heparinized plasma have been validated by the individual laboratory site where testing is performed. Testing on heparinized plasma is not approved by the FDA; however, such approval is not necessary. Performed By: #### C OAGS ####[id number] [place] [address] Potassium molar conc 4.0 mmol/L Normal 3.5 - 5.3 [facility] Comment on above: Performed By: #### C OAGS ####[id number] [place] [address] Sodium molar conc 138 mmol/L Normal 136 - 145 [facility] Comment on above: Performed By: #### C OAGS ####[id number] [place] [address] Urea nitrogen mass conc 22 mg/dL Normal 6 - 23 [facility] Comment on above: Performed By: #### C OAGS ####[id number] [place] [address] VAS LAB Arterial Duplex Ult rasoundon 03-20-2018 VAS LAB Arterial Duplex Ultrasound [facility], [address] [place], [place] [id number] and Vascular Lab Report Upper Arterial Duplex Ultrasound Patient Name: DON Mar Physician: [id number] Olesya Fall MDStudy Date: 03/20/2018 Referring Physician: [id number] Calderon MDMRN/PID: [id number] PCP:Accession/Order#: [id number] CC Report to:Date of : 1950 Technologist: Jasvir LAYNETGender: Cristhian Technologist 2:Admission Status: Inpatient Location Performed: [facility] Diagnosis/ICD: I24.8-Cardiac Ischemia;Z01.818-Encounter for other preprocedural examinationProcedure/CPT: 94025 Upper arterial Duplex Limited-80002 CONCLUSIONS:Right Upper Arterial: The right radial artery is patent with triphasic waveforms.Left Upper Arterial: The left radial artery is patent with triphasic waveforms. Imaging & Doppler Findings: Right Left PSV Waveform PSV Pyqrwpcj81 cm/s Triphasic Radial 87 cm/s Triphasic Right LeftRadial Diam P 2.6 mm 2.2 mmRadial Diam M 2.5 mm 2.2 mmRadial Diam D 2.3 mm 2.0 mm [id number] Olesya Fall MD Final Normal [facility] VASC LAB Carotid Artery Dupl ex Ultrasounon 03-20-2018 VAS LAB Carotid Artery Duplex Ultrasoun [facility], [address] [place], [place] [id number] and Vascular Lab Report Carotid Artery Duplex Ultrasound Patient Name: DON Mar Physician: [id number] Olesya Fall MDStudy Date: 03/20/2018 Referring Physician: [id number] Calderon MDMRN/PID: [id number] PCP:Accession/Order#: [id number] CC Report to:Date of : 1950 Technologist: Jasvir LAYNETGender: Cristhian Technologist 2:Admission Status: Inpatient Location Performed: [facility] Diagnosis/ICD: I24.8-Cardiac Ischemia;Z01.818-Encounter for other preprocedural examinationProcedure/CPT: 89362 Cerebrovacular Carotid Duplex scan complete-07527 CONCLUSIONS:Right Carotid: Findings are consistent with less [...] 206 cm/s Right LeftICA/CCA Ratio 1.3 0.8 [id number] Olesya Fall MD Final Normal [facility] VASC LAB PVR (Arterial Physi ologic) ABIon 03-20-2018 VASC LAB PVR (Arterial Physiologic) [facility], [address] [place] [address] and Vascular Lab Report PVR [facility] Patient Name: DON Mar Physician: [id number] Olesya Fall MDStudy Date: 03/20/2018 Referring Physician: [id number] Mor Calderon MDMRN/PID: [id number] PCP:Accession/Order#: [id number] CC Report to:Date of : 1950 Technologist: Jasvir Mckoy: Cristhian Technologist 2:Admission Status: Inpatient Location Performed: [facility] Diagnosis/ICD: I24.8-Cardiac Ischemia;Z01.818-Encounter for other preprocedural examinationProcedure/CPT: 59739 Peripheral artery [facility]KS Only-54236 CONCLUSIONS:Right Upper PVR: Baseline indices less than [...] Right LeftBrachial Pressure 146 mmHg 143 mmHg [id number] Olesya Fall MD Final Normal [facility] VASC LAB PVR (Arterial Physiologic) [facility], [address] [place] [address] and Vascular Lab Report PVR [facility] Patient Name: DON Mar Physician: [id number] Olesya Fall MDStudy Date: 03/20/2018 Referring Physician: [id number] Mor Calderon [facility]ATIONRN/PID: [id number] PCP:Accession/Order#: [id number] CC Report to:Date of : 1950 Technologist: Jasvir Morrow Technologist 2:Admission Status: Inpatient Location Performed: [facility] Diagnosis/ICD: I73.9-Peripheral vascular disease, unspecified;I24.8-Cardiac Ischemia;Z01.818-Encounter for other preprocedural examinationProcedure/CPT: 13687 Peripheral artery [facility] Only-49253 CONCLUSIONS:Right Lower PVR: No evidence of arterial [...] and may make absolute Segmental Limb Pressures (PMP) unreliable. Triphasic flow is noted in the [...] Right LeftBrachial Pressure 146 mmHg 145 mmHg [id number] Olesya Fall MD Final Normal [facility] VASC LAB Pre-op Vessel Vein Mappingon 03-20-2018 VASC LAB Pre-op Vessel Vein Mapping [facility], [address] [place] [address] and Vascular Lab Report Pre-op Vein Mapping Lower Patient Name: DON ELKINS Reading Physician: [id number] Olesya Fall MDStudy Date: 03/20/2018 Referring Physician: [id number] Calderon MDMRN/PID: [id number] PCP:Accession/Order#: [id number] CC Report to:Date of : 1950 Technologist: Jasvir Owens RVTGender: Cristhian Technologist 2:Admission Status: Inpatient Location Performed: [facility] Diagnosis/ICD: Z01.818-Encounter for other preprocedural examination;I24.8-Cardiac IschemiaProcedure/CPT: 34137 Vein mapping complete-21086 CONCLUSIONS:Left Lower Vein Mapping: The left great [...] mmSSV Prox FibroticSSV Mid FibroticSSV Distal Fibrotic [id number] Olesya Fall MD Final Normal [facility] ARTERIAL BLOOD GASon 018 BASE EXCESS-BLOOD -0.5 mmol/L Normal -2.0 - 3.0 [facility] Comment on above: Performed By: #### E MRAD ####NO LOCATION NEEDED Oxygen ppres (BldA) 79 mm[Hg] Low 85 - 95 [facility] Comment on above: Performed By: #### E MRAD ####NO LOCATION NEEDED PCO2 39 mmHg Normal 38 - 42 [facility] Comment on above: Performed By: #### E MRAD ####NO LOCATION NEEDED pH (Bld) 7.40 [pH] Normal 7.38 - 7.42 [facility] Comment on above: Performed By: #### E MRAD ####NO LOCATION NEEDED RBC Auto #/vol (Bld) 24.2 mmol/L Normal 22.0 - 26.0 [facility] Comment on above: Performed By: #### E MRAD ####NO LOCATION NEEDED SO2 96 % Normal 94 - 100 [facility] Comment on above: Performed By: #### E MRAD ####NO LOCATION NEEDED ARTERIAL H+Hon 03-19-2018 Hematocrit Auto Volume Fraction (Bld) 41.0 % Normal 41.0 - 52.0 [facility] Comment on above: Performed By: #### H HNA1 ####[id number] [place] [address] HGB,CALCULATED 13.9 g/dL Normal 13.5 - 17.5 [facility] Comment on above: Performed By: #### H HNA1 ####[id number] [place] [address] ARTERIAL POTASSIUMon 018 Potassium molar conc 3.7 mmol/L Normal 3.5 - 5.3 [facility] Comment on above: Performed By: #### P OTGA ####[id number] [place] [address] Admission Risk Screen - Adul ton 03-19-2018 Admission Risk Screen - Adult Allergies: Allergies: No Known Allergies: Patient Verification: New W ID Band Applied in my Departmentyes Patient Identity Verified Bydriver's license/state ID ID Band FULL Name, include Middle, spelling matches patient's ID used forverificationyes ID Band Matches Patient ID used for Verficationyes ID Band MRN Matches EMR MRNyes Advance Directive: Advance Directive Medicalyes Advance Directive typeLiving Will, Durable Power of Aluminizer for Healthcare Living Will AvailabilityLiving Will not available now Living Will [id number] Durable Power of Aluminizer AvailabilityDPOA not available now Durable Power of Aluminizer [id number] Durable Power of Aluminizer contact (name and number)R[place]ki [place] Screen:Type of AssessmentadmissionModerate Risk Factorspatient care equipment [...] Learning Preferencesskill demonstration Cultural Considerationsnone Developmental Considerationsnone Baptism Considerationsnone Learning Assessment (Other Learner): Other learner [...] Spiritual Screen: Are there any cultural, spiritual, moravian practices/values/needs that areimportant for us to knowno CAGE:Is this an injured patient at a Trauma Center ([facility] / [facility]): no Vaccinations:Vaccination - Influenza Vaccination Screen: Is [...] Injury Present on Admissionno Electronic Signatures:Jeannie Shelton (RN) (Signed 19-Mar-2018 00:38)Authored: Admission Risk Screens, Vaccinations, Prudencio, Pressure Injury Last Updated: 19-Mar-2018 00:38 by Jeannie Shelton (RN) Normal [facility] BN ORTHOPANTOGRAMon 03-19-20 18 BN ORTHOPANTOGRAM Name: DON ELKINS STUDY:BN ORTHOPANTOGRAM; 03/19/2018 12:56 pm INDICATION:Signs/Symptoms: tooth pain, s/p recent root canal, pre op CABG [id number]. COMPARISON:None. ORDERING CLINICIAN:VITO PATINO TECHNIQUE:ORTHOPANTOGRAM FINDINGS:Suspected dental caries right maxillary premolar. No other suspiciouslucency seen. Dental amalgam noted. IMPRESSION: Suspected periapical abscess right maxillary premolar.Electronically signed by: SULMA FLOR MD Normal [facility] CBCon 03-19-2018 Erythrocyte distribution width Auto Ratio (RBC) 13.0 % Normal 11.5 - 14.5 [facility] Comment on above: Performed By: #### C BC ####[id number] [place] [address] Hematocrit Auto Volume Fraction (Bld) 39.6 % Low 41.0 - 52.0 [facility] Comment on above: Performed By: #### C BC ####[id number] [place] [address] Hemoglobin mass conc (Bld) 13.4 g/dL Low 13.5 - 17.5 [facility] Comment on above: Performed By: #### C BC ####[id number] [place] [address] MCHC Auto mass conc (RBC) 33.8 g/dL Normal 32.0 - 36.0 [facility] Comment on above: Performed By: #### C BC ####[id number] [place] [address] MCV Auto Entitic volume (RBC) 92 fL Normal 80 - 100 [facility] Comment on above: Performed By: #### C BC ####[id number] [place] [address] Nucleated RBC/100 WBC Ratio (Bld) 0.0 /100 WBC Normal 0.0-0.0 [facility] Comment on above: Performed By: #### C BC ####[id number] [place] [address] Platelets Auto #/vol (Bld) 259 10*3/uL Normal 150 - 450 [facility] Comment on above: Performed By: #### C BC ####[id number] [place] [address] RBC Auto #/vol (Bld) 4.32 x10E12/L Low 4.50 - 5.90 [facility] Comment on above: Performed By: #### C BC ####[id number] [place] [address] WBC Auto #/vol (Bld) 10.8 10*3/uL Normal 4.4 - 11.3 [facility] Comment on above: Performed By: #### C BC ####[id number] [place] [address] Erythrocyte distribution width Auto Ratio (RBC) 13.0 % Normal 11.5 - 14.5 [facility] Comment on above: Performed By: #### C BC ####[id number] [place] [address] Hematocrit Auto Volume Fraction (Bld) 42.4 % Normal 41.0 - 52.0 [facility] Comment on above: Performed By: #### C BC ####[id number] [place] [address] Hemoglobin mass conc (Bld) 14.7 g/dL Normal 13.5 - 17.5 [facility] Comment on above: Performed By: #### C BC ####[id number] [place] [address] MCHC Auto mass conc (RBC) 34.7 g/dL Normal 32.0 - 36.0 [facility] Comment on above: Performed By: #### C BC ####[id number] [place] [address] MCV Auto Entitic volume (RBC) 91 fL Normal 80 - 100 [facility] Comment on above: Performed By: #### C BC ####[id number] [place] [address] Nucleated RBC/100 WBC Ratio (Bld) 0.2 /100 WBC Normal 0.0-0.0 [facility] Comment on above: Performed By: #### C BC ####[id number] [place] [address] Platelets Auto #/vol (Bld) 282 10*3/uL Normal 150 - 450 [facility] Comment on above: Performed By: #### C BC ####[id number] [place] [address] RBC Auto #/vol (Bld) 4.68 x10E12/L Normal 4.50 - 5.90 [facility] Comment on above: Performed By: #### C BC ####[id number] [place] [address] WBC Auto #/vol (Bld) 12.7 10*3/uL High 4.4 - 11.3 [facility] Comment on above: Performed By: #### C BC ####[id number] [place] [address] COAGULATION SCREENon 018 aPTT Coag time (Bld) 31 s Normal 28 - 38 [facility] Comment on above: Result Comment: Note new reference range as of 03/10/2018. THE APTT IS NO LONGER USED FOR MONITORING UNFRACTIONATED HEPARIN THERAPY. FOR MONITORING HEPARIN THERAPY, USE THE HEPARIN ASSAY. Performed By: #### C OAGS ####[id number] [id number] INR Coag RelTime (PPP) 1.4 {INR} High 0.9 - 1.1 [facility] Comment on above: Performed By: #### C OAGS ####[id number] [id number] Prothrombin time (PT) Coag time (PPP) 16.1 s High 9.7 - 12.7 [facility] Comment on above: Result Comment: Note new reference range as of 03/10/2018. Performed By: #### C OAGS ####[id number] [id number] COOX PANEL, ARTERIALon 03-19 DEOXY HGB 3.7 % Normal 0.0 - 5.0 [facility] Comment on above: Performed By: #### C OOXA ####[id number] [id number] Hemoglobin mass conc (Bld) 1.1 % Normal [facility] Comment on above: Result Comment: REF VALUESNONSMOKERS 0.5-1.5%SMOKERS 0.5-10.0% Performed By: #### C OOXA ####[id number] [id number] Hemoglobin mass conc (Bld) 14.9 g/dL Normal 13.5 - 17.5 [facility] Comment on above: Performed By: #### C OOXA ####[id number] [id number] MET HGB 1.2 % Normal 0.0 - 1.5 [facility] Comment on above: Performed By: #### C OOXA ####[id number] [id number] OXY HGB 93.9 % Low 94.0 - 98.0 [facility] Comment on above: Performed By: #### C OOXA ####[id number] [id number] Clinical Event Note-STS Scor e - Cardiac Surgeryon 03-19-2018 Clinical Event Note-STS Score - Cardiac Surgery Event:Topic: STS Score - Cardiac SurgeryDetails:Procedure: CAB OnlyRisk of Mortality: 1.006%Morbidity or Mortality: 13.941%Long Length of Stay: 4.79%Short Length of Stay: 47.443%Permanent Stroke: 0.962%Prolonged Ventilation: 8.167%DSW Infection: 0.651%Renal Failure: 5.562%Reoperation: 4.472% Provider / Team Contact Information:Provider/Team Contact Info-Pager Number: [phone] cardiac surgery Electronic Signatures:Herminia Kern (PAC) (Signed 19-Mar-2018 18:40)Authored: Event, Provider / Team Contact Information Last Updated: 19-Mar-2018 18:40 by Herminia Kern (PAC) [facility] Consult-Cardiac Surgeryon Consult-Cardiac Surgery Service:Service: Cardiac Surgery Consult:Consult requested by (Attending Name): Dr. Mor Woo: CAD; CABG eval History of Present Illness:Admission Reason: Transferred for CABG evalHPI:PCP: Sal Hernandez (new) - Levi Sinha: [place] 67 yo WM with no known history of CAD, who has a past medical history of HTN,HLD, T2DM, Ontario's disease, hypothyroidism, COPD, AKASH on CPAP, prostate spring/p prostatectomy in 2011, and psoriasis [facility]18 for CABG eval. Patient reports 2 month h/o intermittent exertional left sided chest painlasting less than 30 min, relieved with rest, with no other associatedsymptoms. He woke up 03/16 at 1AM with chest pressure associated with dyspnea,and his took him to [facility] where he was diagnosed withbilateral PEs, started on heparin gtt, then transferred to [facility]. There, hewas found to have a trop [...] He reports afamily history significant for [place], [place], CHF, HTN, DM and DLD. He quit zvpixad68 years ago. Has an occasional beer, and denies any drug use. 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 Cardiac surgery consulted 03/19 for CABG eval. Pt currently asymptomatic andhemodynamically stable. 12 points ROS obtained and negative unless otherwise stated above Outside Hospital cardiac work up:CTA at [place]:Pulmonary emboli involving the bilateral lobar segmental, and severalsubsegmental branches (RUL, RML, RLL, FIDEL, LLL). LHC/cors at [facility] 03/16/18: by Levi PisanoLM: 10-20%LAD prox: 30%LAD mid: 95%Diag 3rd: 99%RCA: 85 %PLV: 50%Circ: 95% TTE at [facility] 03/15/18:EF 60-65%Mild concentric LVHLV wall motion is normalMild LA dilationpseudonormalized LV relaxation, which is associated with grade II/IV or mild tomoderate diastolic dysfunctionMild aortic regurgitation PMH: HTN, HLD, T2DM, Ontario's disease, hypothyroidism, COPD, AKASH on CPAP,prostate ca s/p prostatectomy in 2011, psoriasis, remote hepatitis B, priorGERD, lumbar Degenerative disk disease, arthritis, kidney stones (current,small), cataract, plantar fasciitis PSH: prostatectomy 2012, R cataract surgery, cholecystectomy, appendectomy,sinus surgery, vasectomy, bilat carpal tunnel release surgery, ganglion cystremoval from hands, cystoscopy 2 weeks ago for microscopic hematuria, rootcanal 2 weeks ago. FHx: CAD/AL, cancer, DM, HTN, migraines, CVA Social: former [...] No Known Allergies: Objective: Objective Information: T [id number]/8396% Date/Time03/19 3: 3: 3: 3: 3:42Range(36.6C - 36.6C ) (79 - 79 ) (20 - 20 ) (149 - 173 )/ (83 - 92 ) (96%- 97% ) Pain with Activity reported at 03/19 0:25: 0Pain at Rest reported at 03/19 0:25: 0 Elolytg65/1 0:14: Weight in kg (Weight (kg)) 109.311/1 0:14: Weight in lbs ((lbs)) 08051/1 0:14: BMI (kg/m2) (BMI (kg/m2)) 36.646 Physical [...] Bolus) Injectable: 4000 unit(s) IntraVenous Push Every 5Vwptp1. Hydrocortisone: 20 mg Oral 2 Times a Day9. Insulin Lispro Mild Corrective Scale: unit(s) SubCutaneous 3 Times a DayBefore Meals10. Levothyroxine: 150 microgram(s) Oral Daily11. Pantoprazole: 40 mg Oral Daily12. Polyethylene Glycol: 17 gram(s) Oral Daily13. rOPINIRole: 2 mg Oral 3 Times a Day PRN Medications --1. Dextrose 50% in Water Injectable: 25 gram(s) IntraVenous Push Every 49Jnlrrrp1. Glucagon Injectable: 1 mg IntraMuscular Every 15 [...] 1 View [Mar 19 2018 9:20AM] OUTSIDE [facility]CTA at [place]:Pulmonary emboli involving the bilateral lobar segmental, and severalsubsegmental branches (RUL, RML, RLL, FIDEL, LLL). [facility]/cors at [facility] 03/16/18: by Levi PisanoLM: 10-20%LAD prox: 30%LAD mid: 95%Diag 3rd: 99%RCA: 85 %PLV: 50%Circ: 95% TTE at [facility] 03/15/18:EF 60-65%Mild concentric LVHLV wall motion is normalMild LA dilationpseudonormalized LV relaxation, which is associated with grade II/IV or mild tomoderate diastolic dysfunctionMild aortic regurgitation Assessment:67 yo WM with no priorhistory of CAD, who has a past medical history of HTN,HLD, T2DM, Ontario's disease, hypothyroidism, COPD, AKASH on CPAP, prostate spring/p prostatectomy in 2011, and psoriasis who [facility] on 03/18 for CABG eval. Ptpresented to [facility] with chest pressure and dyspnea. He as found to havebilat PEs, was started on Heparin gtt, and transferred to [facility]. He wasfound to have a troponin leak at 2.25. Cardiology was consulted and the patientwas diagnosed with ACS, NSTEMI. He underwent a TTE and cath. He had normal EF,mild AI, and triple vessel CAD so was transferred to [facility] for CABG eval. Cardiac surgery consulted [...] for 81mg aspirin- Shut heparin drip off die cutter diamond to OR- Please start or continue beta danica; If unable to tolerate beta blockerplease document reason- please consult Endocrine d/t Brigida's disease- please consult Pulmonary for PE workup Thank you for the consultation. [place] call [phone] with any questions or changesin patient condition. Signature/Cosignature/Attestat ion:Provider/Team Contact Info-Pager Numbercardiac surgery [phone] Electronic Signatures:Mary Munroe (LOCKSTITCH BINDER-BUTTERMILK DRIER OPERATOR) (Signed 19-Mar-2018 18:21)Authored: Service, History of Present Illness, Review Family/Social Historyand ROS, Objective, Assessment/Recommendations,Sig nature/Cosignature/Attestation Kyle Arechiga (LOCKSTITCH BINDER-BUTTERMILK DRIER OPERATOR) (Signed 19-Mar-2018 08:17)Authored: Service, Allergies, Objective, Assessment/Recommendations Last Updated: 19-Mar-2018 18:21 by Mary Munroe (LOCKSTITCH BINDER-BUTTERMILK DRIER OPERATOR) Normal [facility] DRUG SCREEN,PAIN MANAGEMENT W/ REFLEXon 03-19-2018 AMPHETAMINE SCREEN,U Negative Normal NEGATIVE [facility] Comment on above: Result Comment: CUTO FF LEVEL: 500 NG/ML Cross-reactivity has been reported with high concentrations of the following drugs: buproprion, chloroquine, chlorpromazine, ephedrine, mephentermine, fenfluramine, phentermine, phenylpropanolamine, pseudoephedrine, and propranolol. Performed By: #### D SPMR ####[id number] [place] [address] BARBITURATES SCREEN,U Negative Normal NEGATIVE [facility] Comment on above: Result Comment: CUTO FF LEVEL: 200 NG/ML Performed By: #### D SPMR ####[id number] [id number] BENZODIAZEPINES SCREEN,U Negative Normal NEGATIVE [facility] Comment on above: Result Comment: CUTO FF LEVEL: 200 NG/MLBenzodiazepine Confirmatory testing has been sent to a reference laboratoryand will be reported separately. Although the benzodiazepine screening testprovides rapid results; the confirmatory test provide the most sensitive andspecific assessment of drug presence or absence in the urine. Performed By: #### D SPMR ####[id number] [place] [address] CANNABINOIDS SCREEN,U Negative Normal NEGATIVE [facility] Comment on above: Result Comment: CUTO FF LEVEL: 50 NG/ML Performed By: #### D SPMR ####[id number] [id number] COCAINE METABOLITE SCREEN,U Negative Normal NEGATIVE [facility] Comment on above: Result Comment: CUTO FF LEVEL: 150 NG/ML Performed By: #### D SPMR ####[id number] [place] [address] DRUG SCREEN COMMENT. SEE BELOW Normal [facility] Comment on above: Result Comment: Drug screen [...] laboratory medicaldirectors. Performed By: #### D SPMR ####[id number] [place] [address] METHADONE SCREEN,U Negative Normal NEGATIVE [facility] Comment on above: Result Comment: CUTO FF LEVEL: 150 NG/ML The metabolite F-eorzt-eihzswyvrnawhw (LAAM) is not detected by this method in concentrations that would be found in the urine of patients on LAAM therapy. Performed By: #### D SPMR ####[id number] [place] [address] OPIATES SCREEN,U Negative Normal NEGATIVE [facility] Comment on above: Result Comment: CUTO FF [...] the urine. Performed By: #### D SPMR ####[id number] [place] [address] PCP SCREEN,U Negative Normal NEGATIVE [facility] Comment on above: Result Comment: CUTO FF LEVEL: 25 NG/ML Cross-reactivity has been reported with dextromethorphan. Performed By: #### D SPMR ####[id number] [place] [address] Daily Progress Note-Yann chavez 03-19-2018 Protein mass conc Service: Cardiology Subjective Data:DON ELKINS is a 67 year old Male who is Hospital Day # 2. Additional Information:Received from [facility] with PE and need for CABG eval, hypertensive - Heparin gtt- Stop Metoprolol- Start Carvedilol- Plan for OR with Dr. Gaston early next week Objective Data: Objective Information:T AWZBTuK8Oayuh67.93038817/8797% Date/Time03/19 13: 13: 13: 13: 13:27Range(36.6C - 37C ) (79 - 83 ) (16 - 20 ) (149 - 173 )/ (83 - 92 ) (95% -97% )Highest temp of 37 C was recorded at 03/19 8:29 Pain with Activity reported at 03/19 7:19: 0Pain at Rest reported at 03/19 7:19: 0 Tembovy70/1 0:14: Weight in kg (Weight (kg)) 109.311/1 0:14: Weight in lbs ((lbs)) 90526/1 0:14: BMI (kg/m2) (BMI (kg/m2)) 36.646 Physical Exam: Constitutional: Resting in bed, NADHead/Neck: No JVDRespiratory/Thorax: CTABCardiovascular: RRR, S1 W4Zmcathshxvccgtjc: soft, NT/NDExtremities: Right wrist site of catheterization intact, normal pulse. Noperipheral edemaNeurological: alert and oriented m2Ppkntffpquukr: Appropriate mood and behaviorSkin: psoriasis plaque over [...] Bolus) Injectable: 4000 unit(s) IntraVenous Push Every 2Btqnd0. Hydrocortisone: 20 mg Oral 2 Times a [...] Water Injectable: 25 gram(s) IntraVenous Push Every 91Ezvybhc1. Glucagon Injectable: 1 mg IntraMuscular Every 15 [...] -0.5Bicarbonate, Calculated, Arterial 24.2 Glucose_POCT Trending View Cujvnh86-Xhh-7839 13:58:00 19-Mar-2018 08:27:00Glucose-TQLB684 H 172 H Drug Screen, Pain Management [...] NEGATIVE CUTOFF LEVEL: 150 NG/ML The metabolite M-rdkwd-jkrxqdqltmpcfr (LAAM) is not detected by this method [...] Urine YELLOW Reference Range: STRAW,YELLOWAppearance, Urine CLEARSpecific [place], Urine 1.013pH, Urine 6.0Protein, Urine NEGATIVEGlucose, Urine [...] 240 All ranges are based on fasting u.s. naval hospitalpHDL Cholesterol, Serum 44.5 . AGE VERY LOW [...] A4C: 17.4cm2LA Area A2C: 14.2 cm2LA [place] A4C: 6.0 cmLA [place] A2C: 4.7 cmLA Volume Index: 15.2 ml/m2RA VOLUME BY A/L METHOD: Normal Ranges:RA Area A4C: 12.8 xk1E-QCRU MEASUREMENTS: Normal Ranges:Ao Root: 2.90 cm (2.0-3.7cm)LAs: [...] T2DM, Addisson's, GERD, prostate ca s/p prostatectomy [id number], hypothyroidism, psoriasis, and most recently diagnosed with a PE andmultivessel CAD transferred to medicine at [facility] from [facility] for CABG eval. PE- unprovoked subsegmental PE. [...] on PPICode status: Full Electronic Signatures:Vito Patino (LOCKSTITCH BINDER-BUTTERMILK DRIER OPERATOR) (Signed 19-Mar-2018 15:16)Authored: Service, Subjective Data, Objective Data, Assessment and Plan,Signature/Cosignature/Att estationMor Calderon) (Signed 19-Mar-2018 15:57)Co-Signer: Service, Subjective Data, Objective Data, Assessment and Plan,Signature/Cosignature/Att estation Last Updated: 19-Mar-2018 15:57 by Mor Calderon) [facility] Discharge Planning Noteon Discharge Planning Note Discharge Needs Assessment: Discharge Planning Assessment [id number] Discharge Planning Assessment Completed Breana Villalobos RN Care [phone] Readmission Within the Last 30 Daysno previous admission in last 30 days Primary Care PhysicianUnknarc[place] Patient Learning: Factors that Impact Ability to Learnlearning disabilities, visualproblems(1) Other Factors: Functional Screen: In the recent/past 2-4 weeks, patient or family havenoticedno issues that require a rehabilitation consult at this time(2) Discharge Planning:Discharge Plannin03/19/18 0648: Patient admitted to [facility] from [facility] with 4x vesselblockage and CABG consult. recent partial root canal begun this past Fridaybut no permanent cap placed yet. Patient lives at home with and pets. Nolines or drips on admission, will restart heparin at 0900 this morning, patientwas given 10mg Eliquis at [facility] at 9pm 03/18/18. no pain onadmission. Jeannie Shelton RN 03-19-18 1040 Factory Helper Note: Met with patient to discuss dischargeplanning. [...] PCP, cannot recall name. Preferred pharmacy is [facility].Preferred pharmacy added to outpatient medication review. Patient states nodifficulty obtaining or paying for medications. Patient is not medically readyfor discharge. training and development coordinator will follow. Clarisa Villalobos RN Care [phone] 03-19-18 1530 Factory Helper Note: Patient discussed during interdisciplinaryrounds. Plan for OR next week. training and development coordinator will follow. Clarisa Villalobos RNCare Coordinator [phone] 03-24-18 1435 Factory Helper Note: Patient discussed during interdisciplinaryrounds. Plan for OR friday. training and development coordinator will follow. Clarisa Villalobos RNCare Coordinator [phone] 03-27-18 1500 Factory Helper Note: Patient discussed during interdisciplinaryrounds. Plan for CABG friday. Clarisa Villalobos RN Factory Helper [phone] Factory Helper Note: 04/02/2018. Met with patient to discuss dischargeplanning. Patient is a 67 year old male from home s/p cardiac surgery.Patient will require home care at discharge. Patient provided a [facility] after heart Surgery booklet and a home acre providers list. Willcontinue to monitor patient for all home going needs. Mary Elder RN CC Factory Helper Note 04/07/18Met with patient to finalize discharge [...] has all scripts andbelongings. Pt transported to [facility] via wheelchair. Mary Smith RN. Final Disposition/Discharge:Disposit ion/Discharge Information: Discharge/Transfer Information: Discharge/Transfer Date/Cmpp96-Uod-9513 15:33 Discharged Accompanied Byspouse; family member Discharge Modewheelchair Transportation Methodprivate car Valuables/Medications/Belongin gs Returnedyes Belongings Commentpt has all belongings [facility] Electronic Signatures:Jeannie Shelton (RN) (Signed 19-Mar-2018 06:51)Authored: Discharge Planning Lillie Martinez (CLIN COOR) (Signed 02-Apr-2018 13:46)Authored: Discharge Planning Claudio Andrade (RN) (Signed 07-Apr-2018 14:13)Authored: Discharge Planning Mary Dahl (RN) (Signed 07-Apr-2018 15:57)Authored: Discharge Planning Note, Final Disposition/DischargeClarisa Villalobos (CLIN COOR) (Signed 27-Mar-2018 15:19)Authored: Discharge Planning Note Last Updated: 07-Apr-2018 15:57 by Mary Smith (RN) References:1. Data Referenced From 5. Education 03/19/2018 12:25 AM2. Data Referenced From Admission Risk Screen - Adult 03/19/2018 12:25 AM Normal [facility] EMR ADDONon 03-19-2018 ADDON CONFIRMATION REQUEST REC'D Normal [facility] Comment on above: Performed By: #### C BC ####[id number] [place] [address] ADDON CONFIRMATION REQUEST REC'D Normal [facility] Comment on above: Performed By: #### E MRAD ####NO LOCATION NEEDED ADDON CONFIRMATION REQUEST REC'D Normal [facility] Comment on above: Performed By: #### E MRAD ####NO LOCATION NEEDED GLUCOSE-POCTon 03-19-2018 Glucose mass conc 308 mg/dL High 74 - 99 [facility] Comment on above: Performed By: #### C BC ####[id number] [place] [address] Glucose mass conc 226 mg/dL High 74 - 99 [facility] Comment on above: Performed By: #### C BC ####[id number] [place] [address] Glucose mass conc 175 mg/dL High 74 - 99 [facility] Comment on above: Performed By: #### G BECKY ####[id number] [place] [address] Glucose mass conc 172 mg/dL High 74 - 99 [facility] Comment on above: Performed By: #### G BECKY ####[id number] [place] [address] HEMOGLOBIN A1Con 03-19-2018 Glucose mass conc 180 mg/dL Normal [facility] Comment on above: Performed By: #### E MRAD ####NO LOCATION NEEDED Hemoglobin A1c/Hemoglobin.to romy mass fraction (Bld) 7.9 % Normal [facility] Comment on above: Result Comment: Diag nosis of Diabetes-Adults Non-Diabetic: < or = 5.6% Increased risk for developing diabetes: 5.7-6.4% Diagnostic of diabetes: > or = 6.5%. Monitoring of Diabetes Age (y) Therapeutic Goal (%) Adults: >18 <7.0 Pediatrics: 13-18 <7.5 7-12 <8.0 0- 6 7.5-8.5 [place] [employer]. Diabetes Care 33(S1), May 2009. Performed By: #### E MRAD ####NO LOCATION NEEDED HEPARIN ASSAY,UFHon 03-19-20 18 HEPARIN ASSAY,UFH 0.4 IU/mL Normal [facility] Comment on above: Result Comment: The therapeutic reference range for UFH may be either 0.3-0.6 IU/mL or 0.3-0.7 IU/mL based on the clinical setting for anticoagulant therapy and the associated nomogram used. For heparin dosing guidelines based on clinical scenario and Heparin Assay results, please refer to local Pharmacy and the [facility] Guidelines for Anticoagulation therapy available on the [facility] intranet at:[email or web address]/Pharmacy/[email or web address]_Guidelines_for_Anticoagu.aspx Performed By: #### E MRAD ####NO LOCATION NEEDED HEPARIN ASSAY,UFH 0.6 IU/mL Normal [facility] Comment on above: Result Comment: The therapeutic reference range for UFH may be either 0.3-0.6 IU/mL or 0.3-0.7 IU/mL based on the clinical setting for anticoagulant therapy and the associated nomogram used. For heparin dosing guidelines based on clinical scenario and Heparin Assay results, please refer to local Pharmacy and [facility] Guidelines for Anticoagulation therapy available on the [facility] intranet at:[email or web address]/Pharmacy/[email or web address]_Guidelines_for_Anticoagu.aspx Performed By: #### E MRAD ####NO LOCATION NEEDED HEPATIC FUNCTION PANELon ALP enzyme act/vol 50 U/L Normal 33 - 136 [facility] Comment on above: Performed By: #### C BC ####[id number] [place] [address] ALT enzyme act/vol 103 U/L High 10 - 52 [facility] Comment on above: Result Comment: Vivien ents treated with Sulfasalazine may generate falsely decreased results for ALT. Performed By: #### C BC ####[id number] [place] [address] AST enzyme act/vol 75 U/L High 9 - 39 [facility] Comment on above: Performed By: #### C BC ####[id number] [place] [address] Bilirubin mass conc 0.9 mg/dL Normal 0.0 - 1.2 [facility] Comment on above: Performed By: #### C BC ####[id number] [place] [address] Bilirubin.direct mass conc 0.2 mg/dL Normal 0.0 - 0.3 [facility] Comment on above: Performed By: #### C BC ####[id number] [place] [address] Protein mass conc 6.6 g/dL Normal 6.4 - 8.2 [facility] Comment on above: Performed By: #### C BC ####[id number] [place] [address] Albumin mass conc 4.1 g/dL Normal 3.4 - 5.0 [facility] Comment on above: Performed By: #### C BC ####[id number] [place] [address] Performed By: #### R ENAL ####[id number] [place] [address] History and Physical-( Night float admission note )on 03-19-2018 History and Physical-( Nightfloat admission note ) History of Present Illness:Medical Student:Medical Student: Nightfloat admission note Admission Reason: Transfer from [facility] for CABG evalHPI:CC:Transfered from CABG eval HPI:Mr. Elkins is a 67 yo M with HTN, DLD, T2DM, Addisson's, GERD, prostate ca s/pprostatectomy in 2011, hypothyroidism, psoriasis transferred to medicine at [facility] from [facility] on 03/18 for CABG eval Patient reports 2 month h/o intermittent exertional left sided chest painlasting less than 30 min, relieved with rest, with no other associatedsymptoms. He woke up 03/16 at 1AM with chest pressure associated with dyspnea,and his took him to [facility] where he was diagnosed with a PE,started on heparin gtt, then transferred to [facility]. There, hewas found to have a [...] He reports afamily history significant for [place], [place], CHF, HTN, DM and DLD. He quit wpdysfr69 years ago. Has an occasional beer, and denies any drug use. 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 12 points ROS obtained and negative unless otherwise stated above Prior cardiac work up. CTA at [place]:Pulmonary emboli involving the bilateral lobar segmental, and severalsubsegmental branches (RUL, RML, RLL, FIDEL, LLL). LHC/cors at [facility]:LAD prox: 30%LAD mid: 95%Diag 3rd: 99%RCA: 85 %PLV: 50%Circ: 95% TTE at [facility]:EF 60-65%Mild LA dialtionNo valvular abnormalities PMH; as [...] day (at bedtime). Objective: Objective Information: T SMAEFnP9Rsdkb13.80222710/9297% Date/Time03/18 23: 23: 23: 0:0503/18 23:30Range(36.6C - 36.6C ) (79 - 79 ) (20 - 20 ) (173 - 173 )/ (92 - 92 ) (97%- 97% ) Rudiyox20 0:14: Weight in kg (Weight (kg)) 109.311/1 0:14: Weight in lbs ((lbs)) 42914/ 0:14: BMI (kg/m2) (BMI (kg/m2)) 36.646 Physical [...] Water Injectable: 25 gram(s) IntraVenous Push Every 13Ketpldr5. Glucagon Injectable: 1 mg IntraMuscular Every 15 Minutes Recent Lab Results: Results:pending Radiology Results: Results:pending Assessment and Plan:Assessment:67 yo M with HTN, DLD, T2DM, Addisson's, GERD, prostate ca s/p prostatectomy [id number], hypothyroidism, psoriasis, and most recently diagnosed with a PE andmultivessel CAD transferred to medicine at [facility] from [facility] on03/18 for CABG eval. Acute problems: #PE - [...] patient (as noted in the above attestation) [id number] Provider Inpatient Certification StatementI certify this patientsneed for inpatient care based on the above documentation including; the orderto admit as inpatient, the anticipated length of stay, diagnosis, problem listand plan of care, and discharge plan. Electronic Signatures:Mor Calderon) (Signed 19-Mar-2018 15:57)Authored: Signatures/Attestation/Certifi cationCo-Signer: Comorbidities, Signatures/Attestation/Certifi cationTomeka Shrestha (PAC) (Signed 19-Mar-2018 07:13)Authored: Comorbidities, Signatures/Attestation/Certifi cationJim Titus (Resident)) (Signed 19-Mar-2018 01:07)Authored: History of Present Illness, Allergies, Medications Prior toAdmission, Objective, Assessment and Plan Last Updated: 19-Mar-2018 15:57 by Mor Calderon) Normal [facility] LIPID PANEL (CORONARY RISK 2 )on 03-19-2018 Cholesterol in HDL mass conc 44.5 mg/dL Normal [facility] Comment on above: Result Comment: . AG E VERY LOW LOW NORMAL HIGH 0-19 Y < 35 < 40 40-45 ---- 20-24 Y ---- < 40 >45 ---- >24 Y ---- < 40 40-60 >60. Performed By: #### L IPID ####[id number] [place] [address] Cholesterol in LDL mass conc 82 mg/dL Normal 0 - 99 [facility] Comment on above: Result Comment: . NE AR BORD AGE DESIRABLE OPTIMAL HIGH HIGH VERY HIGH 0-19 Y 0 - 109 --- 110-129 >/= 130 ---- 20-24 Y 0 - 119 --- 120-159 >/= 160 ---- >24 Y 0 - 99 100-129 130-159 160-189 >/=190. Performed By: #### L IPID ####[id number] [place] [address] Cholesterol in VLDL mass conc 28 mg/dL Normal 0 - 40 [facility] Comment on above: Performed By: #### L IPID ####[id number] [place] [address] Cholesterol mass conc 155 mg/dL Normal 0 - 199 [facility] Comment on above: Result Comment: . AG [...] Metamizole dosing. Performed By: #### L IPID ####[id number] [place] [address] Cholesterol.total /Cholesterol in HDL mass ratio 3.5 {ratio} Normal [facility] Comment on above: Result Comment: REF VALUESDESIRABLE < 3.4HIGH RISK > 5.0 Performed By: #### L IPID ####[id number] [place] [address] Triglyceride mass conc 141 mg/dL Normal 0 - 149 [facility] Comment on above: Result Comment: . AG [...] Metamizole dosing. Performed By: #### L IPID ####[id number] [place] [address] Patient Profile - Adult v2on 03-19-2018 Protein mass conc Profile:Initial Info :How to be AddressedLarrySpoken Language PreferredEnglishSource of InformationpatientAre you currently using the Personal Electronic Health Record or UC MEDICAL CENTERyetated Reason for Admissionheart blocks and blood clot in my lungsArrived FromhospitalPatient Belongingsremains with patientPatient Belongings Remaining with Patientcell phone/electronics; clothing;vision aids; certified medical coding specialist; medication(s)Medications Brought to HospitalyesMedication Dispositionsent home with family General Health:Weight in kg109.3 kilogram(s)Weight in ynf849 pound(s)Height in feet5 feetHeight in inches8 inch(es)Height [...] otherLives Withsignificant otherLiving ArrangementshouseResource/Envi ronmental ConcernsnoneAnticipated Transition Toinunc [facility] facilityServices [facility]ticipated at [facility]; rehabilitation servicesSignificant IndicatorsComplete Information Review: Allergies, Home Meds and Significant Events have been Reviewed and Verifiedwith Patient/Familyno ALLERGY, INTOLERANCE, ADVERSE EVENT: Allergies: No Known Allergies: Active Electronic Signatures:Jeannie Shelton (RN) (Signed 19-Mar-2018 00:25)Authored: Profile, Additional Information Last Updated: 19-Mar-2018 00:25 by Jeannie Shelton (ANDREA) Normal [facility] RENAL FUNCTION PANELon 03-19 Albumin mass conc 3.9 g/dL Normal 3.4 - 5.0 [facility] Comment on above: Performed By: #### C BC ####[id number] [place] [address] Anion gap 3 molar conc 16 mmol/L Normal 10 - 20 [facility] Comment on above: Performed By: #### C BC ####[id number] [place] [address] Calcium mass conc 9.4 mg/dL Normal 8.6 - 10.6 [facility] Comment on above: Performed By: #### C BC ####[id number] [place] [address] Chloride molar conc 102 mmol/L Normal 98 - 107 [facility] Comment on above: Performed By: #### C BC ####[id number] [place] [address] Performed By: #### R ENAL ####[id number] [place] [address] Creatinine mass conc 1.36 mg/dL High 0.50 - 1.30 [facility] Comment on above: Performed By: #### C BC ####[id number] [place] [address] GFR- AM. 63 mL/min/1.73m2 Normal >60 [facility] Comment on above: Result Comment: CALC ULATIONS OF ESTIMATED GFR ARE PERFORMED USING THE MDRD STUDY EQUATION FOR THE IDMS-TRACEABLE CREATININE METHODS. CLIN CHEM 2007;53:766-72 Performed By: #### C BC ####[id number] [place] [address] GFR-NON AM. 52 mL/min/1.73m2 Abnormal >60 [facility] Comment on above: Performed By: #### C BC ####[id number] [place] [address] Glucose mass conc 229 mg/dL High 74 - 99 [facility] Comment on above: Performed By: #### C BC ####[id number] [place] [address] HCO3 molar conc (Bld) 23 mmol/L Normal 21 - 32 [facility] Comment on above: Performed By: #### C BC ####[id number] [place] [address] Performed By: #### R ENAL ####[id number] [place] [address] Phosphate mass conc 3.6 mg/dL Normal 2.5 - 4.9 [facility] Comment on above: Result Comment: The performance characteristics of phosphorus testing in heparinized plasma have been validated by the individual laboratory site where testing is performed. Testing on heparinized plasma is not approved by the FDA; however, such approval is not necessary. Performed By: #### C BC ####[id number] [place] [address] Potassium molar conc 3.9 mmol/L Normal 3.5 - 5.3 [facility] Comment on above: Performed By: #### C BC ####[id number] [place] [address] Sodium molar conc 137 mmol/L Normal 136 - 145 [facility] Comment on above: Performed By: #### C BC ####[id number] [place] [address] Urea nitrogen mass conc 25 mg/dL High 6 - 23 [facility] Comment on above: Performed By: #### C BC ####[id number] [place] [address] Anion gap 3 molar conc 17 mmol/L Normal 10 - 20 [facility] Comment on above: Performed By: #### R ENAL ####[id number] [place] [address] Calcium mass conc 9.2 mg/dL Normal 8.6 - 10.6 [facility] Comment on above: Performed By: #### R ENAL ####[id number] [place] [address] Creatinine mass conc 1.42 mg/dL High 0.50 - 1.30 [facility] Comment on above: Performed By: #### R ENAL ####[id number] [place] [address] GFR- AM. 61 mL/min/1.73m2 Normal >60 [facility] Comment on above: Result Comment: CALC ULATIONS OF ESTIMATED GFR ARE PERFORMED USING THE MDRD STUDY EQUATION FOR THE IDMS-TRACEABLE CREATININE METHODS. CLIN CHEM 2007;53:766-72 Performed By: #### R ENAL ####[id number] [place] [address] GFR-NON AM. 50 mL/min/1.73m2 Abnormal >60 [facility] Comment on above: Performed By: #### R ENAL ####[id number] [place] [address] Glucose mass conc 206 mg/dL High 74 - 99 [facility] Comment on above: Performed By: #### R ENAL ####[id number] [place] [address] Phosphate mass conc 3.5 mg/dL Normal 2.5 - 4.9 [facility] Comment on above: Result Comment: The performance characteristics of phosphorus testing in heparinized plasma have been validated by the individual laboratory site where testing is performed. Testing on heparinized plasma is not approved by the FDA; however, such approval is not necessary. Performed By: #### R ENAL ####[id number] [place] [address] Potassium molar conc 4.1 mmol/L Normal 3.5 - 5.3 [facility] Comment on above: Performed By: #### R ENAL ####[id number] [place] [address] Sodium molar conc 138 mmol/L Normal 136 - 145 [facility] Comment on above: Performed By: #### R ENAL ####[id number] [place] [address] Urea nitrogen mass conc 23 mg/dL Normal 6 - 23 [facility] Comment on above: Performed By: #### R ENAL ####[id number] [place] [address] REQUEST-LEUKOREDUCED RED HERI LSon 03-19-2018 REQUEST-LEUKOREDU TATUM RED CELLS ORDER RECD Normal [facility] Comment on above: Performed By: #### E MRAD ####NO LOCATION NEEDED STAPH/MRSA SCREENon 03-19-20 STAPH/MRSA SCREEN PATIENT: DON ELKINS LOCATION: [address]#: [id number] : 50 AGE: SEX: M ORDERED BY: FESTUS ARECHIGA: ANTERIOR NARES COLLECTED: 03/19/18 09:34ANTIBIOTICS AT JIMENA.: RECEIVED : 03/19/18 11:09SITE: NARES R E S U L T S STAPH/MRSA SCREEN FINAL 03/20/18 12:15 NO Staphylococcus aureus ISOLATED. Normal [facility] Comment on above: Performed By: #### C OAGS ####[id number] [place] [address] TH CHEST 1 VIEWon 03-19-2018 TH CHEST 1 VIEW Name: DON ELKINS STUDY:TH CHEST 1 VIEW; 03/19/2018 6:21 am INDICATION:Signs/Symptoms: admisison Xray. COMPARISON:None ORDERING CLINICIAN:JIM TITUS FINDINGS:The cardiomediastinal silhouette is within normal limits. There is no focal consolidation, edema or pneumothorax. No sizeablepleural effusion. No acute osseous abnormality. IMPRESSION:1. No radiographic evidence of acute cardiopulmonary process. Electronically signed by: STANISLAV RADFORD MD Normal [facility] TH CHEST 2 VIEW PA AND LATon 03-19-2018 TH CHEST 2 VIEW PA AND LAT Name: DON ELKINS STUDY:CHEST 2 VIEW PA AND LAT; 03/19/2018 12:56 pm INDICATION:Signs/Symptoms: preop cabg ROOM [id number]. COMPARISON:Chest radiograph from 03/19/2018 ORDERING CLINICIAN:KYLE ARECHIGA FINDINGS:The cardiomediastinal silhouette is stable and within normal limits. There is no focal consolidation, edema or pneumothorax. No sizeablepleural effusion. No acute osseous abnormality. IMPRESSION:1. No radiographic evidence of acute cardiopulmonary process. Electronically signed by: STANISLAV RADFORD MD Normal [facility] TSHon 03-19-2018 Thyrotropin Qn 2.51 m[IU]/L Normal 0.44 - 3.98 [facility] Comment on above: Result Comment: TSH testing is performed using different testing methodology at [facility] than at other legacy [facility]. Direct result comparisons should only be made within the same method.. Patients receiving more than 5 mg/day of biotin may have interference in test results. A sample should be taken no sooner than eight hours after previous dose. Contact [phone] for additional information. Performed By: #### T SH2 ####[id number] [id number] URINALYSISon 03-19-2018 APPEARANCE CLEAR Normal CLEAR [facility] Comment on above: Performed By: #### U A ####[id number] [place] [address] BILIRUBIN Negative Normal NEGATIVE [facility] Comment on above: Performed By: #### U A ####[id number] [place] [address] BLOOD Negative Normal NEGATIVE [facility] Comment on above: Performed By: #### U A ####[id number] [place] [address] COLOR YELLOW Normal STRAW,YELLOW [facility] Comment on above: Performed By: #### U A ####[id number] [place] [address] GLUCOSE Negative Normal NEGATIVE [facility] Comment on above: Performed By: #### U A ####[id number] [place] [address] KETONES Negative Normal NEGATIVE [facility] Comment on above: Performed By: #### U A ####[id number] [place] [address] LEUKOCYTE ESTERASE Negative Normal NEGATIVE [facility] Comment on above: Performed By: #### U A ####[id number] [place] [address] NITRITE Negative Normal NEGATIVE [facility] Comment on above: Performed By: #### U A ####[id number] [place] [address] pH 6.0 Normal 5.0 - 8.0 [facility] Comment on above: Performed By: #### U A ####[id number] [place] [address] Protein mass conc Negative Normal NEGATIVE [facility] Comment on above: Performed By: #### U A ####[id number] [place] [address] SPECIFIC GRAVITY 1.013 Normal 1.005 - 1.035 [facility] Comment on above: Performed By: #### U A ####[id number] [place] [address] UROBILINOGEN 2.0 mg/dL High 0.0 - 1.9 [facility] Comment on above: Result Comment: SOME PIGMENTS AND MEDICATIONS MAY CAUSE AFALSE POSITIVE UROBILINOGEN Performed By: #### U A ####[id number] [place] [address] URINE CULTURE,BACTERIALon URINE CULTURE,BACTERIAL PATIENT: DON ELKINS LOCATION: [address]#: [id number] : 50 AGE: SEX: M ORDERED BY: FESTUS ARECHIGA: URINE COLLECTED: 03/19/18 10:09ANTIBIOTICS AT JIMENA.: RECEIVED : 03/19/18 13:55SITE: Clean Catch/Voided R E S U L T S URINE CULTURE,BACTERIAL FINAL 03/20/18 08:55 NO SIGNIFICANT GROWTH. Normal [facility] Comment on above: Performed By: #### C BC ####[id number] [place] [address] Vital Signs Date Time Vital Sign Value Performing Clinician Facility 03-16-2024 09:42-0400 Body height 172.72 cm [facility] 03-16-2024 09:42-0400 Body mass index (BMI) [Ratio] 35.9 kg/m2 [facility] 03-16-2024 09:42-0400 Body weight 107.04 kg [facility] 03-16-2024 09:42-0400 Diastolic blood pressure 74 mm[Hg] [facility] 03-16-2024 09:42-0400 Heart rate 76 /min [facility] 03-16-2024 09:42-0400 Systolic blood pressure 146 mm[Hg] [facility] 01-29-2024 15:05-0400 Body height 172.72 cm [facility] 01-29-2024 15:05-0400 Body mass index (BMI) [Ratio] 35.6 kg/m2 [facility] 01-29-2024 15:05-0400 Body temperature 97.2 [degF] [facility] 01-29-2024 15:05-0400 Body weight 106.25 kg [facility] 01-29-2024 15:05-0400 Diastolic blood pressure 78 mm[Hg] [facility] 01-29-2024 15:05-0400 Heart rate 69 /min [facility] 01-29-2024 15:05-0400 Respiratory rate 16 /min [facility] 01-29-2024 15:05-0400 SaO2% (BldA) [Mass fraction] 96 % [facility] 01-29-2024 15:05-0400 Systolic blood pressure 134 mm[Hg] [facility] 08-14-2023 12:06-0400 Body height 172.72 cm [facility] 08-14-2023 12:06-0400 Body mass index (BMI) [Ratio] 35.2 kg/m2 [facility] 08-14-2023 12:06-0400 Body temperature 96.9 [degF] [facility] 08-14-2023 12:06-0400 Body weight 105.23 kg [facility] 08-14-2023 12:06-0400 Diastolic blood pressure 80 mm[Hg] [facility] 08-14-2023 12:06-0400 Heart rate 76 /min [facility] 08-14-2023 12:06-0400 Respiratory rate 16 /min [facility] 08-14-2023 12:06-0400 SaO2% (BldA) [Mass fraction] 97 % [facility] 08-14-2023 12:06-0400 Systolic blood pressure 130 mm[Hg] [facility] 06-24-2023 10:02-0500 Body height 167.6 cm Oscar Arvizu MD Work Phone: [facility] 06-24-2023 10:02-0500 Body mass index (BMI) [Ratio] 36.32 kg/m2 Oscar Arvizu MD Work Phone: [facility] 06-24-2023 10:02-0500 Body weight 102.06 kg Oscar Arvizu MD Work Phone: [facility] 06-24-2023 10:02-0500 Diastolic blood pressure 72 mm[Hg] Oscar Arvizu MD Work Phone: [facility] 06-24-2023 10:02-0500 Heart rate 77 /min Oscar Arvizu MD Work Phone: [facility] 06-24-2023 10:02-0500 Systolic blood pressure 131 mm[Hg] Oscar Arvizu MD Work Phone: [facility] 01-16-2023 15:00-0400 Body height 172.72 cm Frederick Geovanni Other [facility] Other 01-16-2023 15:00-0400 Body mass index (BMI) [Ratio] 33.96 kg/m2 Frederick Geovanni Other [facility] Other 01-16-2023 15:00-0400 Body temperature 97.3 [degF] Frederick Geovanni Other [facility] Other 01-16-2023 15:00-0400 Body weight 101.33 kg Frederick Geovanni Other [facility] Other 01-16-2023 15:00-0400 Diastolic blood pressure 64 mm[Hg] Frederick Geovanni Other [facility] Other 01-16-2023 15:00-0400 Respiratory rate 18 /min Frederick Geovanni Other [facility] Other 01-16-2023 15:00-0400 SaO2% (BldA) [Mass fraction] 97 % Frederick Geovanni Other [facility] Other 01-16-2023 15:00-0400 Systolic blood pressure 130 mm[Hg] Frederick Geovanni Other [facility] Other 06-20-2022 16:00-0500 Body height 172.72 cm Frederick Geovanni Other [facility] Other 06-20-2022 16:00-0500 Body mass index (BMI) [Ratio] 33.9 kg/m2 Frederick Geovanni Other [facility] Other 06-20-2022 16:00-0500 Body temperature 97 [degF] Frederick Geovanni Other [facility] Other 06-20-2022 16:00-0500 Body weight 101.15 kg Frederick Geovanni Other [facility] Other 06-20-2022 16:00-0500 Diastolic blood pressure 80 mm[Hg] Frederick Geovanni Other [facility] Other 06-20-2022 16:00-0500 Respiratory rate 18 /min Frederick Geovanni Other [facility] Other 06-20-2022 16:00-0500 SaO2% (BldA) [Mass fraction] 91 % Frederick Geovanni Other [facility] Other 06-20-2022 16:00-0500 Systolic blood pressure 132 mm[Hg] Frederick Geovanni Other [facility] Other 11-22-2021 16:40-0400 Body height 172.72 cm Frederick Geovanni Other [facility] Other 11-22-2021 16:40-0400 Body mass index (BMI) [Ratio] 34.18 kg/m2 Frederick Geovanni Other [facility] Other 11-22-2021 16:40-0400 Body temperature 96.7 [degF] Frederick Geovanni Other [facility] Other 11-22-2021 16:40-0400 Body weight 101.97 kg Frederick Geovanni Other [facility] Other 11-22-2021 16:40-0400 Diastolic blood pressure 76 mm[Hg] Frederick Geovanni Other [facility] Other 11-22-2021 16:40-0400 Respiratory rate 18 /min Frederick Geovanni Other [facility] Other 11-22-2021 16:40-0400 SaO2% (BldA) [Mass fraction] 97 % Frederick Geovanni Other [facility] Other 11-22-2021 16:40-0400 Systolic blood pressure 110 mm[Hg] Frederick Geovanni Other [facility] Other 05-31-2021 16:00-0500 Body height 172.72 cm Frederick Geovanni Other [facility] Other 05-31-2021 16:00-0500 Body mass index (BMI) [Ratio] 35.35 kg/m2 Frederick Geovanni Other [facility] Other 05-31-2021 16:00-0500 Body temperature 96.9 [degF] Frederick Geovanni Other [facility] Other 05-31-2021 16:00-0500 Body weight 105.46 kg Frederick Geovanni Other [facility] Other 05-31-2021 16:00-0500 Diastolic blood pressure 70 mm[Hg] Frederick Geovanni Other [facility] Other 05-31-2021 16:00-0500 Respiratory rate 18 /min Frederick Geovanni Other [facility] Other 05-31-2021 16:00-0500 SaO2% (BldA) [Mass fraction] 97 % Frederick Geovanni Other [facility] Other 05-31-2021 16:00-0500 Systolic blood pressure 110 mm[Hg] Frederick Geovanni Other [facility] Other 04-13-2019 06:55-0500 Body Temperature 98.01 [degF] [facility] [place] 04-13-2019 06:55-0500 BP Diastolic 89 mm[Hg] [facility] [place] 04-13-2019 06:55-0500 BP Systolic 164 mm[Hg] [facility] [place] 04-13-2019 06:55-0500 Pulse (Heart Rate) 82 /min [facility] 04-13-2019 06:55-0500 Pulse Oximetry 96 % [facility] [place] 04-13-2019 06:55-0500 Respiratory Rate 17 /min [facility] [place] 04-13-2019 05:57-0500 BMI (Body Mass Index) 39.2 kg/m2 [facility] 04-13-2019 05:57-0500 Body weight 113.54 kg [facility] [place] 04-09-2019 16:35-0500 Height 170.2 cm [facility] [place] 04-09-2019 05:19-0500 BMI (Body Mass Index) 39.19 kg/m2 [facility], [place] 04-09-2019 05:19-0500 Body weight 113.5 kg [facility] , [place] 04-09-2019 03:30-0500 BP Diastolic 44 mm[Hg] [facility] , [place] 04-09-2019 03:30-0500 BP Systolic 126 mm[Hg] [facility] [place] 04-09-2019 03:30-0500 Pulse (Heart Rate) 92 /min [facility] [place] 04-09-2019 03:30-0500 Pulse Oximetry 98 % [facility] , [place] 04-09-2019 00:52-0500 Body Temperature 98.2 [degF] [facility] [place] 04-09-2019 00:52-0500 Respiratory Rate 18 /min [facility] [place] 04-07-2019 18:15-0500 Height 170.2 cm [facility] [place] 04-05-2019 14:57-0500 BP Diastolic 52 mm[Hg] [facility] , [place] 04-05-2019 14:57-0500 BP Systolic 94 mm[Hg] [facility] , [place] 04-05-2019 14:57-0500 Pulse (Heart Rate) 90 /min [facility], [place] 04-05-2019 14:57-0500 Pulse Oximetry 94 % [facility] , [place] 04-05-2019 14:57-0500 Respiratory Rate 16 /min [facility], [place] 04-05-2019 14:06-0500 Body Temperature 98.2 [degF] [facility], [place] 04-05-2019 08:44-0500 BMI (Body Mass Index) 46.66 kg/m2 [facility], [place] 04-05-2019 08:44-0500 Body weight 112.95 kg [facility] , [place] 04-05-2019 08:44-0500 Height 155.6 cm [facility] , [place] 03-30-2019 12:44-0500 BMI (Body Mass Index) 46.66 kg/m2 [address], [place] 03-30-2019 12:44-0500 Body Temperature 96.91 [degF] [address], [place] 03-30-2019 12:44-0500 Body weight 112.95 kg Ml 1 [facility] [place] , [place] 03-30-2019 12:44-0500 BP Diastolic 75 mm[Hg] Mlo[facility] 1 [facility] [place] , [place] 03-30-2019 12:44-0500 BP Systolic 152 mm[Hg] Ml 1 [facility] [place] , [place] 03-30-2019 12:44-0500 Height 155.6 cm Ml 1 [facility] [place] , [place] 03-30-2019 12:44-0500 Pulse (Heart Rate) 77 /min [facility] 1 [facility] [place], [place] 03-30-2019 12:44-0500 Pulse Oximetry 98 % [facility] 1 [facility] [place] , [place] 03-30-2019 12:44-0500 Respiratory Rate 16 /min [facility] 1 [facility] [place] 04-02-2018 04:55-0500 Body temperature 37.0 degrees C [facility] Comment on above: Result Comment: NOTE: PATIENT RESULTS AR E NOT CORRECTED FOR TEMPERATURE. Performed By: #### E MRAD ####NO LOCATION NEEDED 04-01-2018 19:29-0500 Body temperature 37.0 degrees C [facility] Comment on above: Result Comment: NOTE: PATIENT RESULTS AR E NOT CORRECTED FOR TEMPERATURE. Performed By: #### E MRAD ####NO LOCATION NEEDED 04-01-2018 14:43-0500 Body temperature 37.0 degrees C [facility] Comment on above: Result Comment: NOTE: PATIENT RESULTS AR E NOT CORRECTED FOR TEMPERATURE. Performed By: #### E MRAD ####NO LOCATION NEEDED 04-01-2018 11:59-0500 Body temperature 37.0 degrees C [facility] Comment on above: Result Comment: NOTE: PATIENT RESULTS AR E NOT CORRECTED FOR TEMPERATURE. Performed By: #### E MRAD ####NO LOCATION NEEDED 04-01-2018 06:26-0500 Body temperature 37.0 degrees C [facility] Comment on above: Result Comment: NOTE: PATIENT RESULTS AR E NOT CORRECTED FOR TEMPERATURE. Performed By: #### E MRAD ####NO LOCATION NEEDED 04-01-2018 05:32-0500 Body temperature 37.0 degrees C [facility] Comment on above: Result Comment: NOTE: PATIENT RESULTS AR E NOT CORRECTED FOR TEMPERATURE. Performed By: #### E MRAD ####NO LOCATION NEEDED 04-01-2018 04:04-0500 Body temperature 37.0 degrees C [facility] Comment on above: Result Comment: NOTE: PATIENT RESULTS AR E NOT CORRECTED FOR TEMPERATURE. Performed By: #### E MRAD ####NO LOCATION NEEDED 04-01-2018 00:50-0500 Body temperature 37.0 degrees C [facility] Comment on above: Result Comment: NOTE: PATIENT RESULTS AR E NOT CORRECTED FOR TEMPERATURE. Performed By: #### E MRAD ####NO LOCATION NEEDED 03-31-2018 23:29-0500 Body temperature 37.0 degrees C [facility] Comment on above: Result Comment: NOTE: PATIENT RESULTS AR E NOT CORRECTED FOR TEMPERATURE. Performed By: #### E MRAD ####NO LOCATION NEEDED 03-31-2018 20:21-0500 Body temperature 37.0 degrees C [facility] Comment on above: Result Comment: NOTE: PATIENT RESULTS AR E NOT CORRECTED FOR TEMPERATURE. Performed By: #### E MRAD ####NO LOCATION NEEDED 03-31-2018 19:08-0500 Body temperature 37.0 degrees C [facility] Comment on above: Result Comment: NOTE: PATIENT RESULTS AR E NOT CORRECTED FOR TEMPERATURE. Performed By: #### E MRAD ####NO LOCATION NEEDED 03-31-2018 17:37-0500 Body temperature 37.0 degrees C [facility] Comment on above: Result Comment: NOTE: PATIENT RESULTS AR E NOT CORRECTED FOR TEMPERATURE. Performed By: #### E MRAD ####NO LOCATION NEEDED 03-31-2018 17:18-0500 Body temperature 37.0 degrees [facility] Comment on above: Result Comment: NOTE: PATIENT RESULTS AR E NOT CORRECTED FOR TEMPERATURE. Performed By: #### E MRAD ####NO LOCATION NEEDED 03-31-2018 17:01-0500 Body temperature 37.0 degrees C [facility] Comment on above: Result Comment: NOTE: PATIENT RESULTS AR E NOT CORRECTED FOR TEMPERATURE. Performed By: #### E MRAD ####NO LOCATION NEEDED 03-31-2018 15:30-0500 Body temperature 37.0 degrees C [facility] Comment on above: Result Comment: NOTE: PATIENT RESULTS AR E NOT CORRECTED FOR TEMPERATURE. Performed By: #### E MRAD ####NO LOCATION NEEDED 03-31-2018 14:29-0500 Body temperature 37.0 degrees C [facility] Comment on above: Result Comment: NOTE: PATIENT RESULTS AR E NOT CORRECTED FOR TEMPERATURE. Performed By: #### A FPA3 ####[id number] [place] [address] 03-31-2018 13:56-0500 Body temperature 37.0 degrees C [facility] Comment on above: Result Comment: NOTE: PATIENT RESULTS AR E NOT CORRECTED FOR TEMPERATURE. Performed By: #### A FPA3 ####[id number] [place] [address] 03-31-2018 13:11-0500 Body temperature 37.0 degrees C [facility] Comment on above: Result Comment: NOTE: PATIENT RESULTS AR E NOT CORRECTED FOR TEMPERATURE. Performed By: #### A FPA3 ####[id number] [place] [address] 03-31-2018 12:53-0500 Body temperature 37.0 degrees C [facility] Comment on above: Result Comment: NOTE: PATIENT RESULTS AR E NOT CORRECTED FOR TEMPERATURE. Performed By: #### A FPA3 ####[id number] [place] [address] 03-31-2018 12:24-0500 Body temperature 37.0 degrees C [facility] Comment on above: Result Comment: NOTE: PATIENT RESULTS AR E NOT CORRECTED FOR TEMPERATURE. Performed By: #### A FPA3 ####[id number] [place] [address] 03-31-2018 11:57-0500 Body temperature 37.0 degrees C [facility] Comment on above: Result Comment: NOTE: PATIENT RESULTS AR E NOT CORRECTED FOR TEMPERATURE. Performed By: #### A FPA3 ####[id number] [place] [address] 03-31-2018 11:45-0500 Body temperature 37.0 degrees C [facility] Comment on above: Result Comment: NOTE: PATIENT RESULTS AR E NOT CORRECTED FOR TEMPERATURE. Performed By: #### A FPA3 ####[id number] [place] [address] 03-31-2018 09:53-0500 Body temperature 37.0 degrees C [facility] Comment on above: Result Comment: NOTE: PATIENT RESULTS AR E NOT CORRECTED FOR TEMPERATURE. Performed By: #### A FPA3 ####[id number] [place] [address] 03-19-2018 16:32-0400 Body temperature 37.0 degrees C [facility] Comment on above: Result Comment: NOTE: PATIENT RESULTS AR E NOT CORRECTED FOR TEMPERATURE. Performed By: #### E MRAD ####NO LOCATION NEEDED Encounters Encounter Date Encounter Type Care Provider Facility Start: 05-05-2024 End: 05-05-2024 QE Venturesheet Debbie Gomez [facility] Work Phone: [facility] Start: 05-05-2024 End: 05-05-2024 Bamboo flowsheet Debbie Gomez [facility] Work Phone: [facility] Start: 05-05-2024 End: 05-05-2024 Clinical Support Debbie Gomez [facility] Work Phone: [facility] Comment on above: Sensorineural hearin g loss, bilateral (Primary Dx); Tinnitus, bilateral Start: 03-16-2024 End: 03-16-2024 [facility] Work Phone: Start: 03-16-2024 End: 03-16-2024 Patient encounter procedure [facility] Physician [facility] Work Phone: Start: 01-29-2024 End: 01-29-2024 ambulatory [facility] Work Phone: Start: 01-29-2024 End: 01-29-2024 Patient encounter procedure [facility] Work Phone: Start: 01-22-2024 Non-patient / Non-visit [facility] Physician [facility] Work Phone: Start: 01-06-2024 End: 01-06-2024 ambulatory [facility] Start: 01-06-2024 End: 01-06-2024 Encounter for other preprocedural examination [facility] Start: 12-23-2023 End: 12-23-2023 ambulatory OSCAR ARVIZU Not Available Start: 10-24-2023 End: 10-24-2023 ambulatory OLGA VOGEL Not Available Start: 08-14-2023 End: 08-14-2023 ambulatory [facility] Work Phone: Start: 08-14-2023 End: 08-14-2023 Patient encounter procedure [facility] Work Phone: Start: 08-05-2023 Non-patient / Non-visit [facility] Physician [facility] Work Phone: Start: 06-24-2023 Chart abstracting Oscar Shrestha Work Phone: [facility] Start: 06-24-2023 End: 06-24-2023 Office [...] Not Available Start: 05-26-2023 End: 05-26-2023 ambulatory MARJ DEMARCO [facility] Start: 03-11-2023 End: 03-11-2023 ambulatory Sal Sabillon Other [facility] Other Start: 03-11-2023 Nursing evaluation o f patient and report Sal Sabillon [facility] Start: 01-16-2023 End: 01-16-2023 ambulatory Frederick Geovanni Other [facility] Other Start: 01-16-2023 Office outpatient vi sit 25 minutes Frederick Geovanni [facility] Start: 06-20-2022 End: 06-20-2022 ambulatory Frederick Geovanni Other [facility] Other Start: 06-20-2022 Office outpatient vi sit 25 minutes Frederick Geovanni [facility] Start: 06-13-2022 End: 06-14-[address] SAL SABILLON Facility:[facility] Start: 06-07-2022 End: 06-08-[address] SAL SABILLON Facility:[facility] Start: 05-24-2022 End: 05-25-[address] SAL SABILLON Facility:[facility] Start: 01-12-[address] SAL SABILLON Facil ity:[facility] Start: 11-22-2021 End: 11-22-2021 ambulatory Frederick Geovanni Other [facility] Other Start: 11-22-2021 Office outpatient vi sit 15 minutes Frederick Geovanni [facility] Start: 11-17-2021 End: 11-18-2021 ambulatory FREDERICK GEOVANNI Facility:[facility] Start: 06-03-2021 End: 06-03-2021 ambulatory Frederick Geovanni Other [facility] Other Start: 06-03-2021 Telephone encounter Frederickcindi Biswasr [facility] Start: 05-31-2021 End: 05-31-2021 ambulatory Frederick Geovanni Other [facility] Other Start: 05-31-2021 Office outpatient vi sit 25 minutes Frederick Geovanni [facility] Start: 02-08-2021 End: 02-09-2021 ambulatory MARJ DEMARCO Facility:[facility] Start: 04-09-2019 End: 04-13-2019 Evaluation and management of inpatient ELLIE JUÁREZ [facility] Start: 04-09-2019 End: 04-13-2019 Evaluation and management of inpatient Ellie Juárez Work Phone: [facility] Start: 04-07-2019 End: 04-09-2019 Evaluation and management of inpatient SAL SABILLON [facility] Start: 04-07-2019 End: 04-09-2019 Evaluation and management of inpatient Gilbert Martinez Work Phone: [facility] Tele Comment on above: SIRS (systemic infla mmatory response syndrome) (HCC) (Primary Dx); Dehydration; TIFFANI (acute kidney injury) (HCC); Bronchitis; Elevated TSH Start: 04-05-2019 End: 04-05-2019 Patient encounter procedure [facility] [place] Start: 04-05-2019 End: 04-07-2019 Patient encounter procedure [facility] [place] Start: 04-05-2019 End: 04-05-2019 Subsequent hospital visit by physician Reid Mejia Work Phone: [facility] Comment on above: Post-op pain (Primar y Dx) Start: 03-30-2019 End: 04-04-2019 Patient encounter procedure [facility] [place] Start: 03-30-2019 End: 04-03-2019 Subsequent hospital visit by physician Wandy Pat [facility] Comment on above: Spinal stenosis of l umbar region with radiculopathy; Lumbar spondylosis; Brigida's disease (HCC); Cancer (HCC); Restless leg syndrome; Former smoker, stopped smoking in distant past; Tremors of nervous system; Thyroid disease; Psoriasis Start: 04-30-2018 Patient encounter procedure Jc Gaston Facility:[id number] Start: 03-19-2018 End: 04-07-2018 Evaluation and management of inpatient Kenneth Cheng Facility:[facility] Procedures Date Procedure Procedure Detail Performing Clinician Start: 05-05-2024 AUDITORY FUNCTION TESTS Debbie Gomez [facility] Work Phone: Start: 04-13-2019 Gluc bld gluc mntr d [...] Unknown Provider Result Start: 04-12-2019 Prothrombin time [employer] Work Phone: Start: 04-12-2019 INTAKE AND OUTPUT [...] Unknown Provider Result Start: 04-11-2019 Prothrombin time [employer] Work Phone: Start: 04-11-2019 INTAKE AND OUTPUT [...] home use Unknown Provider Result Start: 04-10-2019 PMP EVAL AND TREAT REID Y OO Start: [...] W/ REFLEX TO MG FOR LOW K [employer] Work Phone: Start: 04-08-2019 Blood count complete auto&auto difrntl wbc Shanika [employer] Work Phone: Start: 04-08-2019 Hepatic function panel [employer] Work Phone: Start: 04-08-2019 LACTATE, SEPSIS Shanika [employer] Work Phone: Start: 04-08-2019 Prothrombin time Shanika [employer] Work Phone: Start: 04-08-2019 Assay of lactate [...] REID SALLIE Start: 04-08-2019 LACTATE, SEPSIS Shanika Julio Work Phone: Start: 04-08-2019 POCT EPOC BLOOD [...] above: Performed By: #### T S3C #### [facility] [address] [place] [address] Start: 04-07-2019 Ecg routine ecg w/le [...] Work Phone: Start: 04-07-2019 Assay of magnesium Kimb dave Santamaria Work Phone: Start: 04-07-2019 Assay [...] REID SALLIE Start: 04-05-2019 Prothrombin time Sawyer Singletary Start: 04-05-2019 Gluc bld gluc mntr [...] 03-30-2019 Blood count complete automated Vicki Orourke Singletary Start: 03-30-2019 Blood typing serologic abo Vicki Orourke Hayder Start: 03-30-2019 Hemoglobin glycosylated a1c Vicki Orourke Singletary Start: 03-30-2019 Ecg routine ecg w/le ast 12 lds i&r only Vicki Orourke Singletary Start: 04-30-2018 Follow-up visit Start: 03-31-2018 Bypass Coronary Shalini ry, One Artery from Left Internal Mammary, Open Approach Kenneth Alegriaer Start: 03-31-2018 Excision of Right Sa phenous Vein, Percutaneous Endoscopic Approach Kenneth Prowellfinesse Start: 03-31-2018 Performance of Cardi ac Output, Continuous Kenneth Alegriaer Start: 03-30-2018 Antibody screen Kenneth merlos Comment on above: Performed By: #### T +S ####[id number] [place] [address] Start: 03-23-2018 Insertion of Intralu devon Device into Inferior Vena Cava, Percutaneous Approach Kenneth Cheng Start: 03-22-2018 Antibody screen Kenneth merlos Comment on above: Performed By: #### L IPID ####[id number] [place] [address] Start: 03-19-2018 Echocardiography Kenneth Lynnstacy Plan of Treatment Date Care Activity Detail Author Start: 12-21-2024 End: 12-21-2024 Patient encounter procedure 12/21/2024 10:30 AM EDT Office Visit [facility] [address] [place] [address] Oscar Arvizu MD [address] [address] [facility] Start: 05-24-2024 End: 05-24-2024 Patient encounter procedure 05/24/2024 9:40 AM EST Office Visit [facility] [address] [place] [address] Tyler Estrada MD [address] [place] [address] [facility] Start: 05-05-2024 End: 05-05-2024 Clinical Support 05/05/2024 1:00 PM EST Clinical Support [facility] [address] [facility] [address] [place] [address] Debbie Gomez, [facility] [address] [place] [address] Arrived [facility] Comment on above: Arrived Start: 01-18-2024 Influenza vaccination Influenza Vaccine (#1) [facility] Start: 12-23-2023 End: 12-23-2023 Patient encounter procedure 12/23/2023 10:30 AM EDT Office Visit [facility] [address] [place] [address] Oscar Arvizu MD [address] [address] [facility] Start: 06-24-2023 End: 06-24-2024 US.doppler Carotid arteries - bilateral Vascular US carotid artery duplex bilateral Imaging Routine Carotid stenosis, bilateral Stroke, lacunar (CMS/HCC) Cerebral artery occlusion with cerebral infarction (CMS/HCC) Expected: 06/24/2023 (Approximate), Expires: 06/24/2024 [facility] Work Phone: Comment on above: Expected: 06/24/2023 (Approximate), Expi res: 06/24/2024 Start: 01-17-2023 Influenza vaccination Influenza Vaccine (#1) [facility] Start: 06-25-2022 Pneumococcal Vaccine: 65+ Years (2 - PCV) Pneumococcal Vaccine: 65+ Years (2 - PCV) [facility] Start: 05-01-2020 DTaP/Tdap/Td vaccine (3 - Td) DTaP/Tdap/Td vaccine (3 - Td) [place] Start: 04-09-2020 Creatinine monitoring Creatinine monitoring [place] Start: 04-09-2020 Potassium monitoring Potassium monitoring [place] Start: 04-08-2020 Creatinine monitoring Creatinine monitoring [place] Start: 04-08-2020 Potassium monitoring Potassium monitoring [place] Start: 03-30-2020 Creatinine monitoring Creatinine [place] Start: 03-30-2020 Potassium monitoring Potassium monitoring [place] Start: 06-30-2019 A1C test (Diabetic or Prediabetic) A1C test (Diabetic or Prediabetic) [place] Start: 04-23-2019 End: 04-23-2019 Office Visit 04/23/2019 Office Visit Neurosurgery Reid Mejia MD [address] [place] [address], [address] [place] [address] [employer] Start: 04-05-2019 End: 04-05-2019 Hospital Encounter [facility] Comment on above: L 3, L 4 LUMBAR DECOMPRESSION, 1 HOUR/ 1 C-ARM Start: 01-17-2019 Influenza vaccination Flu vaccine (#1) [place] Start: 11-08-2018 Annual Wellness Visit (AWV) Annual Wellness Visit (AWV) [place] Start: 08-27-2015 Pneumococcal 65+ years Vaccine (1 of 1 - PPSV23) Pneumococcal 65+ years Vaccine (1 of 1 - PPSV23) [place] Start: 08-27-2015 Pneumococcal 65+ years Vaccine (2 of 2 - PPSV23) Pneumococcal 65+ years Vaccine (2 of 2 - PPSV23) [place] Start: 2000 Colon cancer screen colonoscopy Colon cancer screen colonoscopy [place] Start: 2000 Shingles Vaccine (1 of 2) Shingles Vaccine (1 of 2) [place] Start: 1968 Diabetic microalbuminuria test Diabetic microalbuminuria test [place] Start: 1960 [object Object] Diabetic foot exam [place] Start: 1960 Diabetic retinal exam Diabetic retinal exam [place], [place] Start: 1960 Lipid screen Lipid screen [place], [place] Start: 1950 AAA screen AAA screen [place], [place] Start: 1950 Hepatitis C screen Hepatitis C screen [place], [place] Start: 1950 Screening for malignant neoplasm of colon [facility] Basic Metabolic Pane l w/ Reflex to MG Basic Metabolic Panel w/ Reflex to MG Lab Routine Daily until discontinued starting 04/08/2019, 2 completed [place] Comment on above: Daily until discontinued starting 2018, 2 completed CBC auto differential CBC auto d ifferential Lab Routine Daily until discontinued starting 04/08/2019, 2 completed [place] Comment on above: Daily until discontinued starting 2018, 2 completed Culture Blood #1 Culture Blood # 1 Microbiology STAT 04/07/2019 7:04 PM EST [place] Culture Blood #2 Culture Blood # 2 Microbiology STAT 04/07/2019 6:56 PM EST [place] EKG 12 Lead [place] Comment on above: Daily until discontinued starting 2018, 2 completed Incentive spirometry RT post-op Incentive spirometry RT post-op Respiratory Care Routine Every 2hr while awake until discontinued starting 04/08/2019 [place] Comment on above: Every 2hr while awake until discontinued starting 04/08/2019 Initiate Oxygen Ther apy Protocol [facility] Comment on above: Daily until discontinued starting 2018 Daily until disconti nued starting 04/10/2019 Daily until disconti nued starting 04/08/2019 Lactic acid, plasma Lactic acid, plasma Lab Routine Every 6hr until discontinued starting 04/08/2019, 5 completed [facility] Comment on above: Every 6hr until discontinued starting , 5 completed Phase I & II - meter ed glucose [facility] Comment on above: As Needed until discontinued starting 4X Daily (AC & HS) u ntil discontinued starting 04/09/2019 As Needed until disc ontinued starting 04/09/2019 4X Daily (AC & HS) u ntil discontinued starting 04/08/2019 As Needed until disc ontinued starting 04/08/2019 End: 04-05-2019 POCT Glucose POCT Glucose Point of Care Testing STAT One Time for 1 Occurrences starting 04/05/2019 until 04/05/2019 [facility] Comment on above: One Time for 1 Occurrences starting 03/19 until 04/05/2019 End: 04-11-2019 Procalcitonin Procalcitonin Lab Routine Q48H for 2 Occurrences starting 04/09/2019 until 04/11/2019, 1 completed [facility] Comment on above: Q48H for 2 Occurrences starting 04/09/20 19 until 04/11/2019, [address] [facility] Bowen Comment on above: Daily until discontinued starting 2018, 4 completed Daily until disconti nued starting 04/10/2019 End: 04-05-2019 Pulse Oximetry Spot Check Pulse Oximetry Spot Check Respiratory Care Routine One Time for 1 Occurrences starting 04/05/2019 until 04/05/2019 [facility] Comment on above: One Time for 1 Occurrences starting 03/19 until 04/05/2019 Renal function 2000 panel - Serum or Plasma [facility] Renal function 2000 panel - Serum or Plasma [facility] Respiratory Culture Respiratory Culture Microbiology Routine 04/08/2019 5:06 AM EST [facility] Immunizations Immunization Date Immunization Notes Care Provider Fa kevin 05-19-2023 influenza virus vaccine, unspecified formulation [facility] 04-04-2023 ABRYSVO - Respirator y syncytial virus (RSV), vaccine, bivalent, protein subunit RSV prefusion F, diluent reconstituted, 0.5 mL, PF [facility] Work Phone: [facility] 03-11-2023 influenza, high dose seasonal, preservative-free Sal Jesse Other [employer] Other 03-11-2023 influenza virus vaccine, unspecified formulation [facility] 07-01-2022 Influenza, Seasonal, Quadrivalent, Adjuvanted [facility] Work Phone: [facility] 07-01-2022 tetanus toxoid, redu tatum diphtheria toxoid, and acellular pertussis vaccine, [facility] 07-01-2022 influenza virus vaccine, unspecified formulation Oscar Arvizu MD Work Phone: [facility] 06-25-2021 Influenza, Seasonal, Quadrivalent, Adjuvanted [facility] Work Phone: [facility] 06-25-2021 pneumococcal polysaccharide vaccine, 23 valent [facility] Work Phone: [facility] 11-27-2020 zoster vaccine recombinant [facility] Work Phone: [facility] 09-06-2020 zoster vaccine recombinant [facility] Work Phone: [facility] 08-05-2020 COVID-19 mRNA, Comirnaty (Pfizer) [facility] 07-22-2020 COVID-19 mRNA, Comirnaty (Pfizer) [facility] 07-15-2020 Pfizer Purple Cap SARS-CoV-2 Vaccination [facility] Work Phone: [facility] 02-17-2020 influenza virus vaccine, unspecified formulation [facility] Work Phone: [facility] 02-11-2019 Seasonal trivalent influenza vaccine, adjuvanted, preservative free [facility] Work Phone: [facility] 03-20-2018 influenza, high dose seasonal, preservative-free [facility] Work Phone: [facility] 03-04-2016 influenza, high dose seasonal, preservative-free [facility] Work Phone: [facility] 05-01-2010 tetanus toxoid, redu tatum diphtheria toxoid, and acellular pertussis vaccine, adsorbed [facility] Work Phone: [facility] 03-31-2010 tetanus toxoid, redu tatum diphtheria toxoid, and acellular pertussis vaccine, adsorbed [facility] Work Phone: [facility] 03-16-2001 TD(adult) unspecifie d formulation [facility] Work Phone: [facility] 10-27-1991 yellow fever vaccine [facility] Work Phone: [facility] Payers Date Payer Category Payer Medicare (Managed Care) [facility] [id number] 2024 Unknown [employer] [id number] 2023-Present [address] [place] [address] [id number] 2023 Medicare [id number] 2022 Private Health Insurance [employer] [id number] 2022-Present [address] [address] [place] [address] Supplement [id number] 2017 Medicare [id number] 2017 Medicare xxxxxxxxxx [id number] 2015 Medicare MEDICARE MEDICAR E PART B [id number] 2015-[place] [address] Medicare [id number] 1959 Medicare [id number] [address] [facility] [id number] Self-pay 1950 Unknown [id number] .356 1950 Unknown [id number] .1046 1950 Unknown [id number] 2.16.840.1.369091.3.579.2 .182 1950 Unknown [id number] 2.16.840.1.615999.3.579.2 .182 1950 Unknown [id number] 2.16.840.1.501673.3.579.2 .182 1950 Unknown [id number] 2.16.840.1.074139.3.579.2 .182 1950 Unknown [id number] 2.16.840.1.208614.3.579.2 .182 1950 Unknown [id number] 2.16.840.1.131056.3.579.2 .647 1950 Unknown [id number] 2.16.840.1.046348.3.579.2 .593 1950 Unknown [id number] 2.16.840.1.346117.3.579.2 .593 1950 Unknown [id number] 2.16.840.1.698260.3.579.2 .593 1950 Unknown [id number] 2.16.840.1.495015.3.579.2 .593 1950 Unknown [id number] 2.16.840.1.123270.3.579.2 .593 1950 Unknown [id number] 2.16.840.1.044397.3.579.2 .1259 1950 Unknown [id number] 2.16.840.1.347037.3.579.2 .1259 1950 Unknown [id number] 2.16.840.1.595438.3.579.2 .1259 1950 Unknown [id number] [id number] .1259 Private Health Insurance [facility] [id number] Unknown [id number] Social History Date Type Detail Facility Start: 04-05-2019 End: 09-27-2022 Tobacco smoking status [facility] Former smoker [facility] End: 03-30-1991 History of tobacco use Current [place]oker [place] End: 03-30-1991 History of tobacco use Cigarette Sm[place] Start: 04-05-2019 End: 04-21-2024 Cigarettes smoked current (pack per day) - Reported [place] History of tobacco use Chews Tobacco [place] Start: 04-05-2019 End: 04-21-2024 Alcohol intake Current drinker of alcohol (finding) [place] Start: 03-30-2019 Alcohol Comment social Kae Bowen [place], [place] Start: 1950 Sex Assigned At Not on file [place] Start: 04-09-2019 History SDOH Social Connections Phone 5 [place] Start: 04-09-2019 History SDOH Social Connections Get Together 3 [place] Start: 04-09-2019 History SDOH Social Connections Mandaen 2 [place] Start: 04-09-2019 History SDOH Social Connections Meetings 1 [place] Start: 04-09-2019 History SDOH Physica l Activity DPW 0 [place] Start: 10-11-2022 End: 04-21-2024 Sex Assigned At [facility] [employer] Other Start: 09-27-2022 Tobacco use and exposure Smokeless tobacco non-user [facility] Start: 09-27-2022 Tobacco Comment >10 years sinc e last smoked [facility] Start: 09-27-2022 Alcohol Comment caffeine: coffee [facility] Start: 1950 Sex Assigned At Male [facility] Clinical Notes 11-24-2020 to 05-05-2024 Debbie Gomez, CCC-A - 05/05/2024 1:00 PM Keegan Arvizu MD - 06/24/2023 10:23 AM Keegan Arvizu MD - 06/24/2023 10:22 AM Keegna Arvizu MD - 06/24/2023 10:22 AM EST Note Date & Type Note Facility 05-05-2024 History of Present illness Narrative History: Pt has history of bilateral sensorineural hearing loss, worse in the left ear. Last audio was 10-24-2023. Dr. Mishra reviewed audiogram and suggested pt return in 6 months to see if hearing has changed. Pt has not noticed a change in his hearing. He still has constant bilateral tinnitus. Otoscopic Exam: Ear canal clear and TM intact AU Pure Tone Audiometry Right Ear: Mild to moderate sensorineural hearing loss above 2K Hz Left Ear: Moderate rising to mild sensorineural hearing loss from 3K Hz - 8K Hz Speech Audiometry Right word discrimination score at 55 dBHL = 100% Left word discrimination score at 55 dBHL = 96% Impressions: Right Ear: 20 dB decrease at 8K Hz only Left Ear: 19 dB decrease at 6K Hz only Will have Dr. 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 [facility] 01-06-2024 Note Pt is here for denta l clearance for tooth extraction. Pt has htn, hyperlipidemia. Since last visit pt had labs with lipids, carotid. Review of Systems All other systems reviewed and are negative. [facility] 06-24-2023 History of Present illness Narrative [...] Disease Assessment and Plan - Parkinson disease ([facility]) Stop med for now ad experimentum. If [...] forgetting names. Imaging MR brain (05/2020, [facility] Joshua) - no mention of white matter lesion load US carotids (03/2020, [place]) - ~40% carotid bulbs CT head (03/2019, [place] ) - nl Testing Labs - protein [...] Failed Semeiology Circadian Noct oxim PSG PAPT ([place]) - AHI=2.2 @ MSLT MWT Imaging Testing [...] SH - Past Medical History: Diagnosis Date Ontario's disease (CMS/HCC) Diabetes (CMS/HCC) GERD (gastroesophageal reflux disease) History of hepatitis B Hyperlipidemia (CMS/HCC) Hypertension (CMS/HCC) Prostate cancer (CMS/HCC) Sleep apnea Thyroid disease (CMS/HCC) Past Surgical History: Procedure Laterality Date APPENDECTOMY CARPAL TUNNEL RELEASE Bilateral CATARACT EXTRACTION 2004 CHOLECYSTECTOMY 2014 COLONOSCOPY 2009 NOSE SURGERY x 2 PLANTAR FASCIA SURGERY [place] MEDICATION MANAGEMENT Disease:Ontario's Disease [place] RELEASE THENAR MUSCLE Right 06/13/2014 thumb trigger release RADICAL PROSTATECTOMY CPG 2009 Disease:Prostate cancer TRIGGER FINGER RELEASE No [...] as of 06/24/2023. documented in this encounter [facility] 05-26-2023 Note Lipid abnormalities are well controlled, continue lipitor [facility] 05-26-2023 Note Hypertension is stab le in light of florinef for orthostasis that is currently well controlled and pt without c/o symptoms. Continue all meds [facility] 05-26-2023 Note Coronary artery dise ase is Stable Continue GDMT- Asa, lipitor, metoprolol continue risk factor modifications- heart healthy diet, regular exercise as tolerated and continue all medications. [facility] 05-26-2023 Note Patient here for 1 y ear follow up CAD, NSVT, and orthostatic hypotension. Had echo shortly after last apt in May 2022. Routine labs were done in Dec 2022. Denies chest pain, SOB, and lightheadedness. Review of Systems All other systems reviewed and are negative. [facility] 05-26-2023 Note UTP CARDIOLOGY PROGR ESS [...] RV size a (more content not included)... [facility] 05-26-2023 Note Monitor with routine echocardiog sukhwinder [facility] 01-16-2023 Evaluation note Encounter Date Diagnosis [...] etiology. I have prescribed him oral magnesium. [employer] Other 02-02-2023 Evaluation note* Encounter Date Diagnosis [...] not a candidate for Kerendia. Jun, Laz verdin kid I-IV (ICD-10 - I12.9) Blood pressure is controlled and he appears to be euvolemic. Continue current medication Jun, Secondary hyperparathyroidism (ICD-10 - N25.81) MBD parameters including calcium, phosphorus, vitamin D and PTH are within the goal Jun, Hypomagnesemia (ICD- 10 - E83.42) I have advised to take oral Magnesium every other day. [employer] Other 07-07-2022 Evaluation note* Encounter Date Diagnosis [...] advised him to contact his PCP or manager clinic. Nov, Laz stewart cr kid I-IV (ICD-10 - I12.9) Blood pressure is controlled and he appears to be euvolemic. Continue current medication Nov, Secondary hyperparathyroidism (ICD-10 - N25.81) MBD parameters including calcium, phosphorus, vitamin D and PTH are within the goal [employer] Other 01-13-2022 Evaluation note* Encounter Date Diagnosis [...] advised him to contact his PCP or manager clinic. May, Laz hy kid w cr kid I-IV (ICD-10 - I12.9) Blood pressure is controlled and he appears to be euvolemic. Continue current medication May, Secondary hyperparathyroidism (ICD-10 - N25.81) MBD parameters including calcium, phosphorus, vitamin D and PTH are within the goal May, Anemia of renal dise ase (ICD-10 - D63.1) Hemoglobin is within goal. We will check iron studies. [employer] Other 08-04-2021 NoteHNO ID: [id number] Author: Claudio Parker MD Service: ? Author [...] HISTORY: PAST MEDICAL HISTORY Diagnosis Date - Ontario's disease (HCC) - Coronary arteriosclerosis - DVT (deep venous thrombosis) (HCC) - Hepatitis B - HTN (hypertension) - Hyperthyroidism - AKASH (obstructive sleep apnea) - Prostate cancer (HCC) - Pulmonary embolism (HCC) PAST SURGICAL HISTORY: PAST SURGICAL HISTORY Procedure Laterality Date - APPENDECTOMY - CARPAL TUNNEL Bilateral - COLONOSCOP W/ OR W/O [facility] SPEC Colonoscopy - CORONARY ARTERY BYPASS GRAFT [...] CHF - Diabetes Sis (more content not included)...[facility] 11-24-2020 NoteHNO ID: [id number] Author: Claudio Parker MD Service: ? Author Type: Physician Type: Progress Notes Filed: 11/24/2020 2:10 PM Note Text: PATIENT NAME: Don Elkins DATE: 11/24/2020 PRIMARY CARE PHYSICIAN: Dr. Sal Sabillon/Marj Demarco CNP OTHER PHYSICIANS: Dr. Wilson, Dr. Cortez, Dr. Arvizu ([facility] [facility] Neurology) HPI: This is a 70 [...] TUNNEL Bilateral - COLONOSCOP W/ OR W/O [facility] Colonos (more content not included)...[facility] No InformationNort Scanbuy Other Evaluation note* Diagnosis Parkinson's disease without [...] with cerebral infarction [facility] Diagnosis Onset Date Resolution Status [place] disease acute CKD (chronic kidney disease) stage 3, GFR 30-59 ml/min acute [id number] acute Hypomagnesemia acute Secondary hyperparathyroidism acute Type 2 diabetes mellitus wit h diabetic chronic kidney disease acute [facility] Work Phone: Evaluation note* Diagnosis Onset Date Resolution Status Brigida disease acute CKD (chronic kidney disease) stage 3, GFR 30-59 ml/min acute [id number] acute Hypomagnesemia acute Secondary hyperparathyroidism acute Type 2 diabetes mellitus wit h diabetic chronic kidney disease acute Screening PSA (prostate specific antigen) [facility] Work Phone: Evaluation note* Diagnosis 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 (CMS/HCC)- Primary Neurogenic pain Cognitive decline Cervical paraspinal muscle spasm Spasm of muscle Carotid stenosis, bilateral Occlusion and stenosis of carotid artery without mention of cerebral infarction Stroke, lacunar (CMS/HCC) Unspecified cerebral artery occlusion with cerebral infarction Cerebral artery occlusion with cerebral infarction (CMS/HCC) Unspecified cerebral artery occlusion with cerebral infarction Carotid stenosis, bilateral- Primary Occlusion and stenosis of carotid artery without mention of cerebral infarction Cognitive decline Neurogenic pain Cervical paraspinal muscle spasm Spasm of muscle 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 (CMS/HCC) AKASH (obstructive sleep apnea) Obstructive sleep apnea (adult) (pediatric) RLS (restless legs syndrome) Restless legs syndrome (RLS) Sensorineural hearing loss, bilateral- Primary Tinnitus, bilateral Unspecified tinnitus Type 2 diabetes mellitus with hyperglycemia, without long-term current use of insulin (CMS/HCC) documented in this encounter [facility] N[facility]ative - Reported* Type Description Date [...] Hospitalization History see above Hospitalization History pneumonia [facility] Other Summary Purpose Family History No Family History Records Found Relationship Condition Age at Onset Recorded Date/T [...] Unknown sister Diabetes mellitus Unknown Advance Directives No Advanced Directives Records FoundDocuments on File Type Date Recorded Patient Cuff Setter Overlock Expl anation Advance Directives and Living Will Power of Aluminizer Documents on File Type Date Recorded Patient Cuff Setter Overlock Expl anation Advance Directives and Living Will Power of Aluminizer Latest Code Status on File Code Status [...] your physician 11) Call your doctor at [phone] for an appointment (or follow up as [...] call OFFICE. The 24- hour phone is [phone] 13) If you are unable to contact [...] Hospital Unit/Room#: W276/W276-01 Discharging Unit Phone Number: [phone] Emergency Contact: Extended Emergency Contact Information Primary Emergency Contact: Percy Elkinsnie Address: [address] [place] [address] [place] [address] Relation: Spouse Past Surgical History: Past Surgical [...] DECOMPRESSION performed by Reid Mejia MD at [facility] OR NOSE SURGERY x 2 ORs PLANTAR FASCIA SURGERY Left PROSTATECTOMY 2011 Immunization History: There is no immunization history on file for this patient. Active Problems: Patient Active Problem List Diagnosis Code Spinal stenosis of lumbar region with radiculopathy M48.061, M54.16 Lumbar spondylosis M47.816 Coronary arteriosclerosis I25.10 Pulmonary embolism (HCC) I26.99 Diverticulosis large intestine w/o perforation or abscess w/o bleeding K57.30 [place]'s disease (HCC) E27.1 Cancer (HCC) C80.1 Restless [...] Independent Dressing Independent Toileting Independent Feeding Independent Obstetrician And Gynaecologist Independent Med Delivery whole Wound Care Documentation [...] (for information only, NOT a DME order): {EQUIPMENT:[id number]} Other Treatments: Patient's personal belongings (please select all that are sent with patient): glasses,cellphone, cloth dyeing range tender, pants,shrit, slippers, jacket RN SIGNATURE: MANAGEMENT/SOCIAL WORK SECTION Inpatient Status Date: Readmission Risk Assessment Score: Readmission Risk Risk of Unplanned Readmission: 23 Discharging to Facility/ Agency Name: [facility] Address: Phone: Fax: Dialysis Facility (if applicable) Name: Address: Dialysis Schedule: Phone: Fax: [facility] Roofer signature: ICIAN SECTION Prognosis: Good Condition at [...] Marcelina Camacho - 04/13/2019 11:34 AM EST [facility] MUSIC THERAPY Date: 04/13/2019 Patient Name: [...] Date: 04/13/2019 Patient Name: Don Elkins Account: [id number] : 1950 (68 y.o.) Room: [place] [address] Diagnosis: Impaired mobility and ADL's d/t severe [...] FINGER TRIGGER RELEASE Bilateral multiple HEMORRHOID SURGERY 1990s IVC FILTER INSERTION 02/2018 IVC FILTER REMOVAL 07/2018 LUMBAR SPINE SURGERY N/A 04/05/2019 L 3, L 4 LUMBAR DECOMPRESSION performed by Reid Mejia MD at [facility] OR NOSE SURGERY x 2 ORs PLANTAR [...] Assistance: Independent(No AD) Transfer Assistance: Independent Active Assistant Education Director: Yes 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: 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, 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 Leisure & Hobbies: build and make things, golf, looking up in berry Additional Comments: Per PMP: Pt reports that his is responsible for [...] Limits Cognition Status: Cognition Overall Cognitive Status: [facility] Arousal/Alertness: Appropriate responses to stimuli Following Commands: [...] 6 Perception Status: Perception Overall Perceptual Status: [facility] Sensation Status: Sensation Overall Sensation Status: [facility] Vision and Hearing Status: Vision Vision: Impaired [...] type of HEP: Electronically signed by: ILIANA Barbosa, OTR/L 04/13/2019, 8:56 AM * Rox Vergara OTA - 04/13/2019 8:41 AM EST Occupational Therapy Facility/Department: [facility] Daily Treatment Note NAME: Don Elkins [...] of Acute non-ST elevation myocardial infarction (NSTEMI) ([facility]), Acute post-hemorrhagic anemia, Acute respiratory insufficiency, Bronchiectasis ([facility]), CAD (coronary artery disease), Calculus of urinary tract, Cancer ([facility]), Chronic back pain, CKD (chronic kidney disease), COPD (chronic obstructive pulmonary disease) ([facility]), Diabetes mellitus ([facility]), Diverticulosis of large intestine, DVT (deep venous thrombosis) ([facility]), GERD (gastroesophageal reflux disease), Hx of blood clots, Hyperlipidemia, Hypertension, Lumbar stenosis with neurogenic claudication, Primary adrenocortical insufficiency (HCC), Pulmonary embolism ([facility]), Pulmonary embolism without acute cor pulmonale ([facility]), Restless leg syndrome, RLS (restless legs syndrome), [...] Transfers: Modified independence Cognition Overall Cognitive Status: WFL Cognition Comment: 6 7 7 7 6 Pt. completed independent [...] Gail Kerr RN - 04/13/2019 8:35 AM [facility]ATION INDEPENDENT IN ROOM NOTE Room: R238/R238-01 Admit Date: 04/09/2019 Date: 04/13/2019 Patient Name: [...] Physician Signature: Dr Ellie Juárez DO * Lulu Lee RPH - 04/13/2019 8:33 AM EST Clinical Pharmacy [...] range. Lulu Lee PharmD 04/13/2019 8:33 AM * Kirsten Dailey RN - 04/13/2019 5:04 AM EST Pt denied any pain. LBM 04/12/19. OT at HS was 154 , 1 units of Humalog given along with 20 units of Lantus. Pt slept well with CPAP. Will continue to monitor. FI PugaanoJaspreet, PMP - 04/12/2019 2:54 PM STEFFI Hoyt Facility/Department: [facility] Speech Language Pathology Discharge Report Patient: Don [...] pt's POC as deemed necesary by treating PMP. Long-term Goals Timeframe for Long-term Goals: 3-5x/week [...] is no longer warranted Signature: Jaspreet Frost CCC-PMP, Date: 04/12/2019, Time: 2:54 PM Sheila Yeh, COLLECTOR OF INTERNAL REVENUE - 04/12/2019 1:[address] [facility] RECREATIONAL THERAPY Initial Evaluation Date: 04/12/2019 [...] recreation interests: No issues Leisure Interest Survey: [employer]/Internet, Likes music, Likes animals, Video/online games and Television Sports/Physical Activity No regular physical activity. Community Clubs/Organizations and Dining out Social Activities Family/friend visits Details regarding Leisure Interests: Dogs named Anabella and Althea, Cat named Gabriela; Likes instrumental music; goes to the [employer] [...] services, its supported services and groups include: [facility], Pet Therapy, Individual Music [...] education provided: Yes Learner: Patient Education provided: [facility] Method of Education: Discussion [...] prompting with stress/unfamiliar situations Electronically signed by: JOANIE NegroS Date: 04/12/2019 Jaspreet Park, PMP - 04/12/2019 11:00 AM STEFFI Hoyt Facility/Department: [facility] Speech Language Pathology Treatment Note Don Shrestha Abraham 1950 R238/R238-01 Rehab Dx/Hx: Impaired gait and [...] and time management with 75% accuracy. When PMP requested pt double check his work, he [...] pt's POC as deemed necesary by treating PMP. Pt was able to read at the paragraph level with 100% accuracy. No difficulty writing sentences or functional check writing tasks. Pt did say that his Dyslexia causes him to be slower with writing tasks. 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 Pt was able to complete a [...] 04/12/2019 10:31 AM EST Occupational Therapy Facility/Department: [facility] Daily Treatment Note NAME: Don Elkins [...] of Acute non-ST elevation myocardial infarction (NSTEMI) ([facility]), Acute post-hemorrhagic anemia, Acute respiratory insufficiency, Bronchiectasis ([facility]), CAD (coronary artery disease), Calculus of urinary tract, Cancer (HCC), Chronic back pain, CKD (chronic kidney disease), COPD (chronic obstructive pulmonary disease) ([facility]), Diabetes mellitus ([facility]), Diverticulosis of large intestine, DVT (deep venous thrombosis) ([facility]), GERD (gastroesophageal reflux disease), Hx of blood clots, Hyperlipidemia, Hypertension, Lumbar stenosis with neurogenic claudication, Primary adrenocortical insufficiency (HCC), Pulmonary embolism (HCC), Pulmonary embolism without acute cor pulmonale ([facility]), Restless leg syndrome, RLS (restless legs syndrome), [...] require any assistance. Patient used reachers to sweet pickle maker one inch cubes from the floor. Patient [...] Minutes 30 ADL trainin minutes Brittney Summers OTR/Atilio * Ishan Venegas PTA - 04/12/2019 9:10 AM EST Physical Therapy Rehab Treatment Note Facility/Department: [facility] Room: R238/R238-01 NAME: Don Elkins : 1950 (68 y.o.) [...] PTA, 04/12/19 at 9:54 AM * Lulu Lee RPH - 04/12/2019 8:20 AM EST Clinical Pharmacy [...] Lee PharmD 04/12/2019 8:17 AM * Ellie Juárez DO - 04/12/2019 7:49 AM EST Subjective: [...] device (slide rail) Walk: 6 - Modified Barnhart Walks at least 150 feet with an [...] the care of Dr. Reid Mejia at [facility] 04/05/2019. Patient is to transition slowly [...] incentive spirometry Ellie Juárez D.O., PM&R Attending [phone] [facility] Luz Elena Kirsten Romano RN - 04/12/2019 5:59 AM EST Pt denied any pain. LBM 04/11/19. OT at HS was 234, 2 units of Humalog given along with 20 units ofLantus. Pt slept well with CPAP. Will continue to monitor. * Cristiano Agosto RPH - 04/11/2019 12:36 PM EST Clinical Pharmacy [...] until stable within therapeutic range. Cristiano Agosto, Harvey 04/11/2019 12:35 PM * Alyx Collins PTA - 04/11/2019 12:11 PM EST Physical Therapy Rehab Treatment Note Facility/Department: [facility] Room: [place] [address]- NAME: Don Elkins : 1950 (68 y.o.) [...] PTA, 04/11/19 at 12:13 PM * Sharmin Ronquillo OTR/Atilio - 04/11/2019 10:14 AM EST Occupational Therapy Facility/Department: [facility] Daily Treatment Note NAME: Don Elkins [...] of Acute non-ST elevation myocardial infarction (NSTEMI) ([facility]), Acute post-hemorrhagic anemia, Acute respiratory insufficiency, Bronchiectasis (HCC), CAD (coronary artery disease), Calculus of urinary tract, Cancer (HCC), Chronic back pain, CKD (chronic kidney disease), COPD (chronic obstructive pulmonary disease) (HCC), Diabetes mellitus (HCC), Diverticulosis of large intestine, DVT (deep venous thrombosis) ([facility]), GERD (gastroesophageal reflux disease), Hx of blood clots, Hyperlipidemia, Hypertension, Lumbar stenosis with neurogenic claudication, Primary adrenocortical insufficiency (HCC), Pulmonary embolism (HCC), Pulmonary embolism without acute cor pulmonale ([facility]), Restless leg syndrome, RLS (restless legs syndrome), [...] Time Out 1100 Minutes 30 trainin minutes KENNEDY Batres/Atilio * Ellie Juárez, - 04/11/2019 10:08 AM EST Subjective: The [...] instruction well. Pt also instructed in double ceramic saw tender lateral negotiation technique to utilize when back [...] the care of Dr. Reid Mejia at [facility] 04/05/2019. Patient is to transition slowly [...] incentive spirometry Ellie Juárez D.O., PM&R Attending [phone] [facility] * Jaspreet Pleitez, OT - 04/11/2019 9:07 AM EST Occupational Therapy Facility/Department: [facility] Daily Treatment Note NAME: Don Henrietta Elkins : 1950 Date of Service: 04/11/2019 Discharge Recommendations: Continue to assess pending progress Assessment Activity Tolerance Activity Tolerance: Patient Tolerated treatment well Safety Devices Safety Devices in place: Yes Type of devices: All fall risk precautions in place Patient Diagnosis(es): There were no encounter diagnoses. has a past medical history of Acute non-ST elevation myocardial infarction (NSTEMI) ([facility]), Acute post-hemorrhagic anemia, Acute respiratory insufficiency, Bronchiectasis (HCC), CAD (coronary artery disease), Calculus of urinary tract, Cancer (HCC), Chronic back pain, CKD (chronic kidney disease), COPD (chronic obstructive pulmonary disease) (HCC), Diabetes mellitus (HCC), Diverticulosis of large intestine, DVT (deep venous thrombosis) (HCC), GERD (gastroesophageal reflux disease), Hx of blood clots, Hyperlipidemia, Hypertension, Lumbar stenosis with neurogenic claudication, Primary adrenocortical insufficiency (HCC), Pulmonary embolism (HCC), Pulmonary embolism without acute cor pulmonale (HCC), [...] this to patient who understood. * Sera Escalera PT - 04/10/2019 2:46 PM EST Physical Therapy Rehab Treatment Note Facility/Department: [facility] Room: R238/R238-01 NAME: Don Elkins : 1950 (68 y.o.) [...] instruction well. Pt also instructed in double ceramic saw tender lateral negotiation technique to utilize when back [...] 2: Pt to complete TUG in 13.5m/s intermediate school teacher goals FPC goal 1: Pt to complete all bed mobility with indep FPC goal 2: Pt to complete transfers with indep intermediate school teacher goal 3: pt to ambulate >150 ft with no AD independently FPC goal 4: pt to navigate 12 steps with 1 HR mod indep Therapy Time: Individual Time In 1300 Time Out 1330 Minutes 30 Timed Code Treatment Minutes: 30 Minutes(gait 20min; therex 10min) Sera Escalera, PT, 04/10/19 at 2:46 PM * Rox Vergara FINANCIAL SERVICES OFFICER - 04/10/2019 2:23 PM EST Occupational Therapy Facility/Department: [facility] Daily Treatment Note NAME: Don Elkins [...] of Acute non-ST elevation myocardial infarction (NSTEMI) ([facility]), Acute post-hemorrhagic anemia, Acute respiratory insufficiency, Bronchiectasis ([facility]), CAD (coronary artery disease), Calculus of urinary tract, Cancer ([facility]), Chronic back pain, CKD (chronic kidney disease), COPD (chronic obstructive pulmonary disease) ([facility]), Diabetes mellitus (HCC), Diverticulosis of large intestine, DVT (deep venous thrombosis) (HCC), GERD (gastroesophageal reflux disease), Hx of blood clots, Hyperlipidemia, Hypertension, Lumbar stenosis with neurogenic claudication, Primary adrenocortical insufficiency (HCC), Pulmonary embolism (HCC), Pulmonary embolism without acute cor pulmonale (HCC), [...] activities: 30 minutes YUDI Hughes * Wendy Devlin, PMP - 04/10/2019 12:47 PM EST [facility] Facility/Department: [facility] Speech Language Pathology Initial Speech/Language/Cognitive Assessment NAME:Don Elkins : 1950 (68 y.o.) ROOM: [place] [address] ADMISSION DATE: 04/09/2019 PATIENT DIAGNOSIS(ES): Impaired gait and mobility [R26.89] No chief complaint on file. Patient Active Problem List Diagnosis Date Noted Iron deficiency anemia 04/09/2019 Meralgia paresthetica 04/09/2019 Obstructive sleep apnea syndrome 04/09/2019 Abnormality of gait and mobility due to Impaired Mobility and ADL's due to Severe Lumbar Spinal Stenosis. [facility] 04/09/2019 CKD (chronic kidney disease) [...] claudication Primary adrenocortical insufficiency (HCC) Pulmonary embolism ([facility]) 06/23/2018 2018 / has been on Coumadin [...] DECOMPRESSION performed by Reid Mejia MD at [facility] OR NOSE SURGERY x 2 ORs PLANTAR FASCIA SURGERY Left PROSTATECTOMY 2011 DATE ONSET: 04/09/2019 Date of Evaluation: 04/10/2019 Evaluating Therapist: DHIRAJ Garrison Assessment: Cognitive Diagnosis: Pt presents with moderate cognitive-linguistic deficits characterized by high-level word finding, paragraph comprehension, short-term memory, verbal reasoning, and problem solving deficits Recommendations: Requires PMP Intervention: Yes Duration/Frequency of Treatment: 3-5x/week of [...] pt's POC as deemed necesary by treating PMP. 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 Leisure & Hobbies: wood working. Additional Comments: Pt reports that his is responsible for managing his medications and finances. Vision Vision: Impaired Vision Exceptions: Wears glasses at all times Hearing Hearing: Exceptions to WFL(Tinnitus) Objective: Oral/Motor Oral Motor: Within functional limits Auditory Comprehension Comprehension: Exceptions Yes/No Questions: Mild(15/15 simple yes/no, 9/12 re: passage) One Step Basic Commands: (2/2) [...] assist Memory: 3- Moderate assist Therapy Time PMP Individual Minutes Time In: 1020 Time Out: 1052 Minutes: 32 Signature: * Seth Moeller OTR/Atilio - 04/10/2019 12:39 PM EST The patient completed the [facility] Mental Status (UMS) Examination on this date, [...] to be assessed as appropriate Results of SLUMS assessment will be shared in team meeting to assess need for further action. * Sera Escalera, PT - 04/10/2019 12:36 PM EST Facility/Department: [facility] Rehabilitation Initial Assessment: Physical Therapy Room: R238/R238-01 NAME: Don Elkins : 1950 Date of Service: 04/10/2019 Rehab Diagnosis(es): Impaired Mobility and ADLs d/t severe lumbar spinal stenosis Patient Active Problem List Diagnosis Date Noted Iron deficiency anemia 04/09/2019 Meralgia paresthetica 04/09/2019 Obstructive sleep apnea syndrome 04/09/2019 Abnormality of gait and mobility due to Impaired Mobility and ADL's due to Severe Lumbar Spinal Stenosis. [facility] admit 04/09/19. 04/09/2019 CKD (chronic kidney disease) 04/08/2019 Hyperkalemia 04/08/2019 Sinus tachycardia 04/08/2019 Metabolic acidosis, normal anion gap (NAG) 04/08/2019 Nausea and vomiting 04/08/2019 Postoperative fever 04/08/2019 Elevated bilirubin 04/08/2019 Type 2 diabetes mellitus with hyperglycemia, with long-term current use of insulin ([facility]) 04/08/2019 Sepsis ([facility]) 04/07/2019 Spinal stenosis of lumbar region with radiculopathy 03/30/2019 Lumbar spondylosis 03/30/2019 [place]'s disease ([facility]) 03/30/2019 Cancer ([facility]) 03/30/2019 Restless leg syndrome 03/30/2019 Former smoker, [...] Date Acute non-ST elevation myocardial infarction (NSTEMI) ([facility]) Acute post-hemorrhagic anemia Acute respiratory insufficiency following thoracic surgery Bronchiectasis ([facility]) CAD (coronary artery disease) 03/2018 Triple bypass Calculus of urinary tract Cancer ([facility]) prostatectomy Chronic back pain CKD (chronic kidney disease) COPD (chronic obstructive pulmonary disease) (HCC) Diabetes mellitus (HCC) dx 2016 Diverticulosis of large intestine DVT (deep venous thrombosis) ([facility]) GERD (gastroesophageal reflux disease) Hx of blood clots 02/2018 PE Hyperlipidemia meds > 20 yrs Hypertension meds > 20 yrs Lumbar stenosis with neurogenic claudication Primary adrenocortical insufficiency ([facility]) Pulmonary embolism ([facility]) 06/23/2018 2018 / has been on Coumadin [...] DECOMPRESSION performed by Reid Mejia MD at [facility] OR NOSE SURGERY x 2 ORs PLANTAR [...] Assistance: Independent(No AD) Transfer Assistance: Independent Active Assistant Education Director: Yes 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 Pt also instructed in double ceramic saw tender lateral negotiation technique to utilize when back [...] 2: Pt to complete TUG in 13.5m/s intermediate school teacher goals intermediate school teacher goal 1: Pt to complete all bed mobility with indep intermediate school teacher goal 2: Pt to complete transfers with indep intermediate school teacher goal 3: pt to ambulate >150 ft with no AD independently intermediate school teacher goal 4: pt to navigate 12 steps with 1 HR mod indep ELOS: Plan weeks: 2-3 days Therapy Time: Individual Time In 1100 Time Out 1200 Minutes 60 40 Minutes(transfers 10min; therex 20min; gait 10min) Sera Escalera, PT, 04/10/19 at 12:38 PM * Seth Moeller, OTR/L - 04/10/2019 12:23 PM EST Occupational Therapy Occupational Therapy Initial Assessment Date: 04/10/2019 Patient Name: Don Elkins : 1950 Date of Service: 04/10/2019 Discharge Recommendations: Continue to assess pending progress OT Equipment Recommendations Other: Recommended toilet hygeine wand, sock aid and disease case manager. Transfer care to lead OTR Assessment Performance [...] of Acute non-ST elevation myocardial infarction (NSTEMI) ([facility]), Acute post-hemorrhagic anemia, Acute respiratory insufficiency, Bronchiectasis ([facility]), CAD (coronary artery disease), Calculus of urinary tract, Cancer ([facility]), Chronic back pain, CKD (chronic kidney disease), COPD (chronic obstructive pulmonary disease) ([facility]), Diabetes mellitus ([facility]), Diverticulosis of large intestine, DVT (deep venous thrombosis) ([facility]), GERD (gastroesophageal reflux disease), Hx of blood clots, Hyperlipidemia, Hypertension, Lumbar stenosis with neurogenic claudication, Primary adrenocortical insufficiency ([facility]), Pulmonary embolism ([facility]), Pulmonary embolism without acute cor pulmonale ([facility]), Restless leg syndrome, RLS (restless legs syndrome), [...] Assistance: Independent(No AD) Transfer Assistance: Independent Active Assistant Education Director: Yes 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: 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 Patient Active Problem List Diagnosis Date Noted Iron deficiency anemia 04/09/2019 Meralgia paresthetica 04/09/2019 Obstructive sleep apnea syndrome 04/09/2019 Abnormality of gait and mobility due to Impaired Mobility and ADL's due to Severe Lumbar Spinal Stenosis. [facility] admit 04/09/19. 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 Cancer ([facility]) 03/30/2019 Restless leg syndrome 03/30/2019 Former smoker, [...] Date Acute non-ST elevation myocardial infarction (NSTEMI) ([facility]) Acute post-hemorrhagic anemia Acute respiratory insufficiency following [...] DECOMPRESSION performed by Reid Mejia MD at [facility] OR NOSE SURGERY x 2 ORs PLANTAR FASCIA SURGERY Left PROSTATECTOMY 2011 No Known Allergies DATE ONSET: 04/09/2019 Date of Evaluation: 04/10/2019 Evaluating Therapist: DHIRAJ Garrison Recommended Diet and Intervention Diet Solids Recommendation: [...] Within functional limits/Modified independence Treatment Plan Requires PMP Intervention: No Duration/Frequency of Treatment: no f/u Referral To: GI Treatment/Goals Prognosis Individuals consulted Consulted and agree with results and recommendations: Patient;RN(Awilda RN) Education Patient Education: Pt educated on results of BSE. Patient Education Response: Verbalizes understanding Safety Devices in place: Yes [x] Awilda RN notified Pain: Pain Assessment Patient Currently in Pain: Yes Pain Assessment: 0-10 Pain Level: 3 Pt stated pain level was acceptable for evaluation (sitting in bed) and that he had just got pain pills this morning. Therapy Time PMP Individual Minutes Time In: 1052 Time Out: 1100 Minutes: 8 Signature: * Cristiano Agosto, [facility] - 04/10/2019 12:14 PM EST Clinical Pharmacy [...] stable within therapeutic range. Cristiano Agosto PharmD 04/10/2019 12:13 PM documented in this encounter* Debbie Morin, RN - 04/09/2019 1:24 PM EST Rec'd [...] Lee PharmD 04/09/2019 1:12 PM * Cinthya Alcazra, PT - 04/09/2019 10:42 AM EST Physical Therapy Med Surg Initial Assessment Facility/Department: [address] ORTHO TELE Room: [address] [address] NAME: Don Elkins : 1950 (68 y.o.) [...] Assistance: Independent(No AD) Transfer Assistance: Independent Active Assistant Education Director: Yes Occupation: Retired Additional Comments: Spouse is also limited by pain in her back; pt. 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 Spouse uses adaptive mobility equipment OBJECTIVE: [...] Goals: Patient goals : to get better FPC goals FPC goal 1: indep with bed mobility utilizing log roll intermediate school teacher goal 2: pt to be indep with transfers FPC goal 3: pt to ambulate >150 ft with no AD independently FPC goal 4: pt to navigate 12 steps with 1 HR mod indep [facility] (6 CLICK) BASIC MOBILITY AM-PAC Inpatient Mobility Raw Score : 17 Therapy Time: Individual Time In 0941 Time Out 0955 Minutes 14 Cinthya Alcazar, PT, 04/09/19 at 10:42 AM * Ny Arana OTR/L - 04/09/2019 10:15 AM EST [facility] OCCUPATIONAL THERAPY EVALUATION - ACUTE NAME: Don Elkins : 1950 (68 y.o.) CODE STATUS: Full Code Room: [place] [address] Date of Service: 04/09/2019 Patient Diagnosis(es): Sepsis [...] region with radiculopathy 03/30/2019 Lumbar spondylosis 03/30/2019 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 Spouse uses adaptive mobility equipment OBJECTIVE: [...] from home with spouse who presents to [facility] with the above deficits which impact [...] How much help for eating meals?: None AM-PAC Inpatient Daily Activity Raw Score: 21 AM-PAC Inpatient ADL T-Scale Score : 44.27 ADL [...] (specify): Eval, 17 minutes Electronically signed by: Ny Arana OTR/L 04/09/2019, 10:15 AM * Gerardo Fitzpatrick MD [...] +2 palpable, equal bilaterally Labs: Recent Labs 04/07/19182904/07/193 04/08/19 0324 WBC 11.9* -- 11.4* HGB [...] 2.6* 2.0* ALKPHOS 52 42 Recent Labs 04/07/190 04/08/19 0323 INR 1.2 1.2 Recent Labs [...] [E11.65, Z79.4] 04/08/2019 Sepsis (HCC) [A41.9] 04/07/2019 Ontario's disease (HCC) [E27.1] 03/30/2019 Additional work up [...] Code Status: Full Code PT/OT Eval * Veronikanisha Rene, [facility] - 04/08/2019 4:25 AM EST [...] intestine w/o perforation or abscess w/o bleeding Brigida's disease (HCC) Cancer (HCC) Restless leg syndrome [...] 0324 CREATININE 1.7* 1.77* Recent Labs 04/07/19 1830 04/08/19 0324 WBC 11.9* 11.4* Intake/Output Summary (Last [...] 200 ml. Perfect serve sent to [facility] to request nausea meds. Zofran cannot be given until 0700 0459 medicated pt for fever and nausea. Sent respiratory cx to lab. documented in this encounter* Vicki Singletary, LOCKSTITCH BINDER - BUTTERMILK DRIER OPERATOR - 03/30/2019 1:00 PM EST + Hibiclens wash neck to toes, front & back on Friday04/03/2019 & Friday04/04/2019. + Last dose Coumadin 03/30/2019 / per Dr. Arcos, waiter/waitress bar thru [facility]. + Lovenox bridge to start 03/31/2019 as ordered thru [facility] ( [facility] ) phone # [phone]. + Veterinary Surgery Technician is Dr. Austen Arcos / phone # [phone] / [facility] / Last appt 11/2018/ paper copy of appt notes on chart. + Hx of brigida disease / manager clinic Dr. Xavier Lake / Nupur / phone # [phone]. / paper copy of last appt notes dated 01/06/2019 on chart. documented in this encounter Assessments Diagnosis Post-op pain- Primary Other acute postoperative pain Diagnosis Abnormality of gait and mobility due to Impaired Mobility and ADL's due to Severe Lumbar Spinal Stenosis. [facility] admit 04/09/19.- Primary Abnormality of [...] hypertension Diagnosis SIRS (systemic inflammatory response syndrome) ([facility])- Primary Systemic inflammatory response syndrome, unspecified Dehydration TIFFANI (acute kidney injury) ([facility]) Acute kidney failure, unspecified Bronchitis Bronchitis, not specified as acute or chronic Elevated TSH Other abnormal blood chemistry Sepsis ([facility]) CKD (chronic kidney disease) Chronic kidney disease, unspecified Metabolic acidosis, normal anion gap (NAG) Acidosis Nausea and vomiting Nausea with vomiting Postoperative fever Postprocedural fever Elevated bilirubin 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 [facility] admit 04/09/19. Abnormality of gait CAD (coronary artery disease) Coronary atherosclerosis of unspecified type of vessel, rincon or graft HTN (hypertension) Unspecified essential hypertension [...] claudication Lumbar spondylosis Lumbosacral spondylosis without myelopathy Ontario's disease (HCC) Glucocorticoid deficiency Cancer (HCC) Other malignant neoplasm without specification of site Restless leg syndrome Restless legs syndrome (RLS) Former smoker, stopped smoking in distant past Personal history of tobacco use, presenting hazards to health Tremors of nervous system Abnormal involuntary movements Thyroid disease Unspecified disorder of thyroid Psoriasis Other psoriasis Hospital Course * Ellie Juárez, - 04/13/2019 7:58 AM EST Subjective: The [...] overuseor abuse and follow-up frequently with his paint tester. ROS x10: The patient also complains of [...] - Patient independently transfers Walk: 7- Complete Barnhart Walks at least 150 feet Independently with no assistive device Distance Walked: 300' Stairs: 6 - Modified Barnhart Safely goes up and down at least [...] Allergies) (please also verify by checking MAR) Yesterday I evaluated this patient for periodic [...] encouraged tocontinue to discuss discharge plans with pillowcase maker. Complex Physical Medicine & Rehab Issues Assess & Plan: 1. Severe abnormality of gait and mobility and impaired self-care and ADL's secondary to progressive severe spinal canal stenosis. Functional and medical status have improved nicely status [facility] therefore patient is scheduled for [...] progressive activities in PT, continue prophylaxis DARLYN denise elevation and patient is on prophylactic Lovenox [...] the care of Dr. Reid Mejia at [facility] 04/05/2019. Patient is to transition slowly [...] incentive spirometry Ellie Juárez D.O., PM&R Attending [phone] [facility] [place] documented in this encounter* Gerardo Fitzpatrick MD - 04/09/2019 12:01 PM EST Hospital Medicine Discharge Summary Don Elkins : 1950 Admit date: 04/07/2019 Discharge date: 04/09/2019 Admitting Physician: Gerardo Fitzpatrick MD Primary Care Physician: Sal Sabillon MD Discharge Diagnoses: Active Problems: Lumbar spondylosis Ontario's disease (HCC) Sepsis (HCC) CKD (chronic kidney [...] redness around the incision Hospital Course: Don Eklins is a 68 y.o. male that was admitted and treated at [facility] for the following medical issues: Active Problems: Lumbar spondylosis Ontario's disease (HCC) Sepsis (HCC) CKD (chronic kidney [...] by the following consultants while admitted to [facility]: Consults: IP CONSULT TO NEUROSURGERY IP CONSULT [...] Discharge Medications: Don Elkins Home Medication Instructions MARILUZ:[id number] Printed on:04/09/19 1203 Medication Information cephALEXin (KEFLEX) 500 MG capsule [...] tablet Take 1 tablet by mouth daily Burdette-3 Fatty Acids (FISH OIL) 600 MG CAPS [...] Take 5 mg by mouth daily Indications: B-TF-Vqv warfarin (COUMADIN) 7.5 MG tablet Take 7.5 mg by mouth daily Indications: M-W-F Disposition: If discharged to Home, Any [facility] needs that were indicated and/or required as [...] Procedures Vascular US carotid artery duplex bilateral Beclarence, Oscar Shrestha MD [address] [facility] [address] [place] [address] [address] Referral ID Status Reason Start Date Expiration Date Visits Requested Visits Authorized [id number] Authorized Perform Procedure 06/24/2023 12/21/2023 1 1 Chief Complaint and Reason for Visit Chief Complaint RENAL 6 month follow up Reason for Visit Ontario disease CKD (chronic kidney disease) stage 3, GFR 30-59 ml/min [id number] Hypomagnesemia Secondary 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 Chief Complaint RENAL 6 MONTH F/U Reason for Visit Brigida disease CKD (chronic kidney disease) stage 3, GFR 30-59 ml/min [id number] Hypomagnesemia Secondary 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 Chief Complaint RENAL 6 MONTH F/U Wellness Reason for Visit Brigida disease CKD (chronic kidney disease) stage 3, GFR 30-59 ml/min [id number] Hypomagnesemia Secondary hyperparathyroidism Type 2 diabetes mellitus [...] section and content) DATE CREATED AUTHOR 04/25/2018 [facility] DATE CREATED AUTHOR AUTHOR'S ORGANIZ ATION 05/02/2018 [employer] DATE CREATED AUTHOR AUTHOR'S ORGANIZ ATION 2018 [facility] DATE CREATED AUTHOR AUTHOR'S ORGANIZ ATION 04/13/2019 [facility] DATE CREATED AUTHOR AUTHOR'S ORGANIZ ATION 02/13/2021 [facility] DATE CREATED AUTHOR AUTHOR'S ORGANIZ ATION 05/05/2021 [facility] DATE CREATED AUTHOR AUTHOR'S ORGANIZ ATION 05/21/[address] [facility] DATE CREATED AUTHOR AUTHOR'S ORGANIZ ATION 07/10/2021 [facility] DATE CREATED AUTHOR AUTHOR'S ORGANIZ ATION 06/17/2022 [facility] DATE CREATED AUTHOR AUTHOR'S ORGANIZ ATION 01/07/2024 [facility] DATE CREATED AUTHOR AUTHOR'S ORGANIZ ATION 05/08/2024 [facility] EPIC Reason for Visit (unrecogniz ed section and content) Status Reason Specialty Diagnoses / Procedures Referre d By Contact Referred To Contact Diagnoses SPINAL STENOSIS,, RADICULOPATHY, SPONDYLOSIS Procedures OK LAMNOTMY W/DCMPRSN NRV EACH ADDL CRVCL/LMBR L 3, L 4 LUMBAR DECOMPRESSION, 1 HOUR/ 1 C-ARM Reid Mejia MD [address] [facility], [address] [place] [address] [facility] Reason Comments Post-op Problem Had surgery friday o n low back. Pt has intermittent fever, vomiting and redness around the incision Status Reason Specialty Diagnoses / Procedures Referred By Contact Referred To Contact Diagnoses Sepsis (HCC) Chato Sykes, [address] [facility] [address] [place] [address] [facility] Reason Comments Parkinson's Disease Care Teams (unrecognized sec tion and content) Automotive Title Clerk Relationship Specialty Start Date End Date Sal Sabillon MD [address] [place] [id number] PCP - General Family Medicine 10/08/22 Automotive Title Clerk Relationship Specialty Start Date End Date Sal Sabillon MD [address] [place] [id number] PCP - General Family Medicine 10/08/22 Team [...] March 16, 2024 End: March 16, 2024 Automotive Title Clerk Relationship Specialty Start Date End Date Sal Sabillon MD PCP - General Family Medicine 10/08/22 Automotive Title Clerk Relationship Specialty Start Date End Date Sal Sabillon MD [address] [place] [phone] PCP - General Family Medicine 05/05/24 Goals (unrecognized section and content) Goals may [...] BE BASED ON THE PRIMARY CLINICAL RECORDS. [facility] [employer] [facility]. provides no warranty or guarantee of the accuracy or completeness of information in this document.
--- NOTE | 2024-05-13 10:53 | ECG_ITS ---
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
--- NOTE | 2024-05-13 10:56 | CT_ITS ---
[address] [address] Patient Name: DON ELKINS MRN: [id number] date: 1950 Sex: M Assigned Patient Location: ER Current Patient Location: Accession/Order Number: [id number] Exam Date: 05/13/2024 11:18 Report Date: 05/13/2024 11:43 At the request of: RUPESH CHESTER Procedure: CT abdomen pelvis wo con EXAMINATION: CT abdomen pelvis wo con HISTORY: epigastric abd pain COMPARISON: No relevant comparison available. TECHNIQUE: Axial, Coronal, and Sagittal images were obtained without and/or with IV contrast as indicated by examination type. Dose reduction techniques were achieved by using automated exposure control and/or adjustment of mA and/or kV according to patient size and/or use of iterative reconstruction technique. FINDINGS: LUNG BASES: No visible pulmonary or pleural disease. LIVER: No enlargement, atrophy, suspicious density, or significant focal lesion. BILIARY: Cholecystectomy. PANCREAS: No lesion, fluid collection, or abnormal duct dilatation. SPLEEN: No enlargement or focal lesion. ADRENALS: No mass or enlargement. KIDNEYS: 2.5 cm benign-appearing left renal cyst. No mass, obstruction, or calcification. BOWEL/MESENTERY: No visible mass, obstruction, or bowel wall thickening. AORTA/VASCULAR: No aneurysm or dissection. RETROPERITONEUM: No mass or adenopathy. LYMPH NODES: No adenopathy. URINARY BLADDER: No visible focal wall thickening, lesion, or calculus. PELVIC ORGANS: No visible mass. Pelvic organs appropriate for patient age. ABDOMINAL WALL: No mass or hernia. BONES: No bony lesion or fracture. Moderate-marked degenerative disc disease L4-5, L5-S1. OTHER: Negative. CT/CT abdomen pelvis wo con IMPRESSION: 1. No acute or suspicious findings to account for patient's symptoms. 2. Degenerative disc disease of lumbar spine. Electronically authenticated by: ELIO THOMAS Date: 05/13/2024 11:43
[2024-05-13 11:10] LABS: Basophils Absolute Auto 0.1 10^3/uL (0.0-0.1); Basophils Percent Auto 1.1 % (0.2-2.0); Eosinophils Absolute Auto 0.3 10^3/uL (0.0-0.7); Eosinophils Percent Auto 2.2 % (0.9-7.0); Hematocrit 47.2 % (42.0-54.0); Hemoglobin 16.4 g/dL (14.0-18.0); Immature Granulocytes Pct Auto 0.8 % (0.0-0.5); Lymphocytes Absolute Auto 3.1 10^3/uL (1.2-3.8); Mean Corpuscular HGB Conc 34.7 g/dL (29.9-35.2); Mean Corpuscular Hemoglobin 31.5 pg (25.9-34.0); Mean Corpuscular Volume 90.8 fL (80.0-94.0); Mean Platelet Volume 11.5 fL (9.5-13.5); Monocytes Absolute Auto 1.5 10^3/uL (0.3-0.8); Monocytes Percent Auto 12.1 % (1.7-12.0); Neutrophils Percent Auto 57.8 % (43.0-75.0); Platelet Count 266 10^3/uL (150-450); Red Cell Distribution Width 12.1 % (11.0-15.0); White Blood Count 12.1 10^3/uL (4.0-11.0)
[2024-05-13] MEDS: 0.9 % SODIUM CHLORIDE 1,000 ML 1000 ML IV (11:10)
[2024-05-13] MEDS: FAMOTIDINE/PF 20 MG/2 ML VIAL IV (11:11)
[2024-05-13] MEDS: ONDANSETRON PF 4 MG/2 ML VIAL IV ×2 (11:11→19:29)
[2024-05-13 11:29] LABS: Alanine Aminotransferase 50 U/L (16-63); Albumin Level 3.4 g/dL (3.4-5.0); Alkaline Phosphatase 75 U/L (46-116); Anion Gap 18.4; Aspartate Amino Transferase 23 U/L (15-37); Bilirubin Total 1.8 mg/dL (0.2-1.0); Calcium 9.1 mg/dL (8.5-10.1); Carbon Dioxide 23.1 mmol/L (21.0-32.0); Chloride 98 mmol/L (98-107); Estimated GFR (African America 40 (>=60 mL/min/1.73m^2); Estimated GFR (Non-African Ame 33 (>=60 mL/min/1.73m^2); Globulin 3.3 g/dL; Glucose 169 mg/dL (74-106); Magnesium 1.6 mg/dL (1.8-2.4); Potassium 3.5 mmol/L (3.5-5.1); Sodium 136 mmol/L (136-145); Total Protein 6.7 g/dL (6.4-8.2)
[2024-05-13 11:30] LABS: Troponin I High Sensitivity 44.9 pg/mL (4.0-76.1)
[2024-05-13 11:31] LABS: INR 1.15
[2024-05-13] MEDS: MAGNESIUM SULFATE IN WATER 2 GM/50 ML PREMIX IV (11:42)
[2024-05-13 11:47] LABS: Lactate/Lactic Acid 3.9 mmol/L (0.4-2.0)
--- NOTE | 2024-05-13 11:50 | XR_ITS ---
The [address] [address] Patient Name: DON ELKINS MRN: [id number] date: 1950 Sex: M Assigned Patient Location: ER Current Patient Location: ER Accession/Order Number: [id number] Exam Date: 05/13/2024 11:57 Report Date: 05/13/2024 12:31 At the request of: RUPESH CHESTER Procedure: XR chest 1V EXAM: XR chest 1V at 1147 hours HISTORY: infection ? COMPARISON: 06/13/2018 TECHNIQUE: AP upright portable chest x-ray FINDINGS: The heart is not enlarged and the vasculature is not distended. Multiple sternal wire sutures are present. No acute infiltrate, effusion or pneumothorax is identified. The osseous structures are grossly intact. XR/XR chest 1V IMPRESSION: No acute infiltrate or evidence of cardiac decompensation. The overall appearance of the chest is essentially unchanged. Electronically authenticated by: SULMA SANCHEZ Date: 05/13/2024 12:31
--- NOTE | 2024-05-13 12:33 | ED_ITS ---
HPI - Abdominal Pain General Chief Complaint: Abdominal Pain Stated Complaint: WEAKNESS Time Seen by Provider: 05/13/24 10:53 Source: patient Mode of arrival: Wheelchair Limitations: no limitations History of Present Illness HPI narrative: The patient is 73-year-old male is coming to us after he recently had a dental extraction with his upper teeth, presenting to us with generalized weakness for the last few days, the patient upon arrival with complaint generalized weakness and abdominal pain mostly epigastric associated with multiple episodes of nausea and vomiting, also not tolerating anything p.o. since the last 3 days The patient denies any burning with urination he also denies any cough or difficulty breathing, he had the upper dentures applied after he had his extraction Related Data Home Medications ?Medication ?Instructions ?Recorded ?Confirmed amoxicillin 500 mg tablet mg 05/13/24 aspirin 81 mg tablet,delayed 81 mg PO DAILY 05/13/24 05/13/24 release (Adult Low Dose Aspirin) atorvastatin 40 mg tablet 40 mg PO DAILY 05/13/24 05/13/24 carbidopa 25 mg-levodopa 100 mg 1 tab PO DAILY 05/13/24 05/13/24 tablet citalopram 20 mg tablet (Celexa) 20 mg PO DAILY 05/13/24 05/13/24 donepezil 10 mg tablet mg 05/13/24 fludrocortisone 0.1 mg tablet mg 05/13/24 gabapentin 800 mg tablet mg 05/13/24 hydrocodone 5 mg-acetaminophen 325 tab 05/13/24 mg tablet hydrocortisone 10 mg tablet mg 05/13/24 levothyroxine 100 mcg tablet mcg 05/13/24 lisinopril .Route DAILY 05/13/24 memantine 10 mg tablet mg 05/13/24 metoprolol tartrate 100 mg tablet mg 05/13/24 semaglutide 0.25 mg or 0.5 mg (2 0.5 mg subcut QWEEK 05/13/24 05/13/24 mg/3 mL) subcutaneous pen injector (Ozempic) Allergies Allergy/AdvReac Type Severity Reaction Status Date / Time No Known Drug Allergies Allergy Verified 05/13/24 10:49 Review of Systems ROS Status of ROS 10 or more systems reviewed and unremark able except as noted in history and below PFSH PFSH Social History Little interest or pleasure in doing things: not at all Feeling down, depressed, or hopeless: not at all Exam Narrative Exam Narrative: Nurses notes and vital signs reviewed and patient is not hypoxic. General: Well-appearing and in no apparent distress. Skin: Warm, dry, no pallor noted. No rash. Head: Normocephalic, atraumatic. Neck: Supple, non-tender. Eye: Pupils are equal, round and EOMI. No scleral icterus. Ears, Nose, Mouth, and Throat: TM are clear, no nasal mucosal hypertrophy. Oral mucosa dry Dental evaluation showed that the patient have no teeth in his upper mandible he has a very tender gum but there is no fluctuation or any abscess any of multiple places of extraction Cardiovascular: Regular Rate and Rhythm without murmur, gallop or rub. Respiratory: No accessory muscle use or respiratory distress. Lungs are clear to auscultation, no wheezing, rales or rhonchi Chest Wall: no tenderness Back: No midline thoracic or lumbar vertebral tenderness. No CVA tenderness Musculoskeletal: normal ROM, no calf or popliteal tenderness, no lower extremity edema/swelling GI: Abdomen is soft ,epigastric discomfort No tenderness to palpation. No rebound, guarding, or rigidity noted. Neurological: A&O x4. No cranial nerve dysfunction observed. Constitutional Vital Signs, click to edit/add: Last Vital Signs Temp 98 F 05/13/24 10:44 Pulse 103 H 05/13/24 12:00 Resp 17 05/13/24 12:00 BP 149/78 H 05/13/24 12:00 Pulse Ox 94 L 05/13/24 12:00 O2 Del Method Room Air 05/13/24 10:44 Course Vital Signs Vital signs: Vital Signs Temperature 98 F 05/13/24 10:44 Pulse Rate 120 H 05/13/24 10:44 Respiratory Rate 22 H 05/13/24 10:44 Blood Pressure 91/57 05/13/24 10:44 Pulse Oximetry 100 05/13/24 10:44 Oxygen Delivery Method Room Air 05/13/24 10:44 Temperature 98 F 05/13/24 10:44 Pulse Rate 103 H 05/13/24 12:00 Respiratory Rate 17 05/13/24 12:00 Blood Pressure 149/78 H 05/13/24 12:00 Pulse Oximetry 94 L 05/13/24 12:00 Oxygen Delivery Method Room Air 05/13/24 10:44 MDM - Abdominal Pain MDM Narrative Medical decision making narrative: Upon arrival the patient EKG showing sinus tachycardia no ST elevation or depr ession Patient presented to us with a picture of dehydration and sepsis he was started on IV fluid The CBC shows mild leukocytosis of 12 and the CAT scan of the abdomen pelvis showed no acute pathology Flu and COVID test are negative The patient presentation could be secondary to dehydration in addition to gastritis as well Patient started on Zofran in addition to sepsis protocol initiated after the lactic acid was 3.9 30 cc/kg of IV fluids started and the patient was covered with Zosyn The patient right now has no clear source of infection he will just be admitted for further evaluation of his sepsis and dehydration Repeated lactic acid was 2.4 Patient case was discussed with and he agreed with above-mentioned plan Lab Data Labs: Lab Results 05/13/24 05/13/24 05/13/24 Range/Units 10:58 12:23 12:28 WBC 12.1 H (4.0-11.0) 10^3/uL RBC 5.20 (4.70-6.10) 10^6/uL Hgb 16.4 (14.0-18.0) g/dL Hct 47.2 (42.0-54.0) % MCV 90.8 (80.0-94.0) fL MCH 31.5 (25.9-34.0) pg MCHC 34.7 (29.9-35.2) g/dL RDW 12.1 (11.0-15.0) % Plt Count 266 (150-450) 10^3/uL MPV 11.5 (9.5-13.5) fL Neut % (Auto) 57.8 (43.0-75.0) % Lymph % (Auto) 26.0 (20.5-60.0) % [place] % (Auto) 12.1 H (1.7-12.0) % Eos % (Auto) 2.2 (0.9-7.0) % Baso % (Auto) 1.1 (0.2-2.0) % Neut # (Auto) 7.0 H (1.4-6.5) 10^3/uL Lymph # (Auto) 3.1 (1.2-3.8) 10^3/uL [place] # (Auto) 1.5 H (0.3-0.8) 10^3/uL Eos # (Auto) 0.3 (0.0-0.7) 10^3/uL Baso # (Auto) 0.1 (0.0-0.1) 10^3/uL Abs Immat Gran (auto) 0.10 H (0.00-0.03) 10^3/uL Imm/Tot Granulo (auto) 0.8 H (0.0-0.5) % PT 12.0 H (9.0-11.6) sec INR 1.15 Sodium 136 (136-145) mmol/L Potassium 3.5 (3.5-5.1) mmol/L Chloride 98 (98-107) mmol/L Carbon Dioxide 23.1 (21.0-32.0) mmol/L Anion Gap 18.4 BUN 14.0 (7.0-18.0) mg/dL Creatinine 2.01 H (0.70-1.30) mg/dL Est GFR ( Amer) 40 L (>=60 mL/min/1.73m^2) Est GFR (Non-Af Amer) 33 L (>=60 mL/min/1.73m^2) BUN/Creatinine Ratio 7.0 Glucose 169 H (74-106) mg/dL Lactate 3.9 H* 2.4 H* (0.4-2.0) mmol/L Calcium 9.1 (8.5-10.1) mg/dL Magnesium 1.6 L (1.8-2.4) mg/dL Total Bilirubin 1.8 H (0.2-1.0) mg/dL AST 23 (15-37) U/L ALT 50 (16-63) U/L Alkaline Phosphatase 75 (46-116) U/L Troponin I High Sens 44.9 (4.0-76.1) pg/mL Total Protein 6.7 (6.4-8.2) g/dL Albumin 3.4 (3.4-5.0) g/dL Globulin 3.3 g/dL Albumin/Globulin Ratio 1.0 Lipase 87.0 H (16.0-77.0) U/L Urine Color (YELLOW) Urine Clarity (CLEAR) Urine pH (5.0-9.0) Ur Specific [place] (1.005-1.025) Urine Protein (NEG/TRACE) mg/dL Urine Glucose (UA) (NEGATIVE) mg/dL Urine Ketones (NEGATIVE) mg/dL Urine Occult Blood (NEGATIVE) Urine Nitrite (NEGATIVE) Urine Bilirubin (NEGATIVE) Urine Urobilinogen (0.2-1.0) EU/dL Ur Leukocyte Esterase (NEGATIVE) Influenza Type A Ag Negative Influenza Type B Ag Negative RSV Antigen Not detected (NOT DETECTE) SARS-CoV-2 Ag (CV2AG) Negative (NEGATIVE) 05/13/24 Range/Units 13:05 WBC (4.0-11.0) 10^3/uL RBC (4.70-6.10) 10^6/uL Hgb (14.0-18.0) g/dL Hct (42.0-54.0) % MCV (80.0-94.0) fL MCH (25.9-34.0) pg MCHC (29.9-35.2) g/dL RDW (11.0-15.0) % Plt Count (150-450) 10^3/uL MPV (9.5-13.5) fL Neut % (Auto) (43.0-75.0) % Lymph % (Auto) (20.5-60.0) % [place] % (Auto) (1.7-12.0) % Eos % (Auto) (0.9-7.0) % Baso % (Auto) (0.2-2.0) % Neut # (Auto) (1.4-6.5) 10^3/uL Lymph # (Auto) (1.2-3.8) 10^3/uL [place] # (Auto) (0.3-0.8) 10^3/uL Eos # (Auto) (0.0-0.7) 10^3/uL Baso # (Auto) (0.0-0.1) 10^3/uL Abs Immat Gran (auto) (0.00-0.03) 10^3/uL Imm/Tot Granulo (auto) (0.0-0.5) % PT (9.0-11.6) sec INR Sodium (136-145) mmol/L Potassium (3.5-5.1) mmol/L Chloride (98-107) mmol/L Carbon Dioxide (21.0-32.0) mmol/L Anion Gap BUN (7.0-18.0) mg/dL Creatinine (0.70-1.30) mg/dL Est GFR ( Amer) (>=60 mL/min/1.73m^2) Est GFR (Non-Af Amer) (>=60 mL/min/1.73m^2) BUN/Creatinine Ratio Glucose (74-106) mg/dL Lactate (0.4-2.0) mmol/L Calcium (8.5-10.1) mg/dL Magnesium (1.8-2.4) mg/dL Total Bilirubin (0.2-1.0) mg/dL AST (15-37) U/L ALT (16-63) U/L Alkaline Phosphatase (46-116) U/L Troponin I High Sens (4.0-76.1) pg/mL Total Protein (6.4-8.2) g/dL Albumin (3.4-5.0) g/dL Globulin g/dL Albumin/Globulin Ratio Lipase (16.0-77.0) U/L Urine Color Dk yellow (YELLOW) Urine Clarity Clear (CLEAR) Urine pH 5.5 (5.0-9.0) Ur Specific [place] >=1.030 A (1.005-1.025) Urine Protein Trace (NEG/TRACE) mg/dL Urine Glucose (UA) Negative (NEGATIVE) mg/dL Urine Ketones 15 A (NEGATIVE) mg/dL Urine Occult Blood Negative (NEGATIVE) Urine Nitrite Negative (NEGATIVE) Urine Bilirubin Small A (NEGATIVE) Urine Urobilinogen 0.2 (0.2-1.0) EU/dL Ur Leukocyte Esterase Negative (NEGATIVE) Influenza Type A Ag Influenza Type B Ag RSV Antigen (NOT DETECTE) SARS-CoV-2 Ag (CV2AG) (NEGATIVE) Discharge Plan Discharge Chief Complaint: Abdominal Pain Clinical Impression: Sepsis, Dehydration, Hypomagnesemia, Gastritis Patient Disposition: Admitted As Inpatient Time of Disposition Decision: 13:28
[2024-05-13] MEDS: PIPERACILLIN SODIUM/TAZOBACTAM 4.5 GM in 0.9 % SODIUM CHLORIDE 50 ML IV (12:49)
[2024-05-13] MEDS: SODIUM CHLORIDE 638 ML IV (12:49)
[2024-05-13 12:59] LABS: Lactate/Lactic Acid 2.4 mmol/L (0.4-2.0)
[2024-05-13 13:01] LABS: Influenza Virus A Antigen Negative; Influenza Virus B Antigen Negative; Internal Control Within Normal Limits; Respiratory Syncytial Virus Not Detected (NOT DETECTE); SARS-CoV-2 Ag NEGATIVE (NEGATIVE)
[2024-05-13 13:15] LABS: Bilirubin Urine SMALL (NEGATIVE); Blood Urine NEGATIVE (NEGATIVE); Clarity Urine CLEAR (CLEAR); Glucose Urine UA NEGATIVE (NEGATIVE); Ketones Urine 15 mg/dL (NEGATIVE); Leukocyte Esterase Urine NEGATIVE (NEGATIVE); Nitrite Urine NEGATIVE (NEGATIVE); Protein Urine TRACE mg/dL (NEG/TRACE); Specific Gravity Urine >=1.030 (1.005-1.025); Urine Microscopic Indicated NO; Urobilinogen Urine 0.2 EU/dL (0.2-1.0); pH Urine 5.5 (5.0-9.0)
[2024-05-13 13:16] LABS: Color Urine DK YELLOW (YELLOW)
[2024-05-13] MEDS: LACTATED RINGER'S SOLUTION 1,000 ML 125 ML IV (16:52)
[2024-05-13] MEDS: METOPROLOL TARTRATE 100 MG TABLET PO (21:41)
[2024-05-13] MEDS: PIPERACILLIN SODIUM/TAZOBACTAM 3.375 GM in 0.9 % SODIUM CHLORIDE 50 ML IV (21:41)
[2024-05-13] MEDS: HEPARIN SODIUM (PORCINE) 5,000 UNIT/ML VIAL 5000 UNIT SUBQ (21:41)
[2024-05-14] VITALS (18 sets, daily range): BP systolic 120–152; BP diastolic 64–84; PULSE 69–84; TEMP 36.6–36.8; O2SAT 92–95
[2024-05-14] MEDS: LACTATED RINGER'S SOLUTION 1,000 ML 125 ML IV (05:15)
[2024-05-14] MEDS: HEPARIN SODIUM (PORCINE) 5,000 UNIT/ML VIAL 5000 UNIT SUBQ ×3 (05:44→21:29)
[2024-05-14] MEDS: LEVOTHYROXINE SODIUM 100 MCG TABLET PO (05:44)
[2024-05-14] MEDS: PIPERACILLIN SODIUM/TAZOBACTAM 3.375 GM in 0.9 % SODIUM CHLORIDE 50 ML IV ×3 (05:44→21:28)
[2024-05-14 06:14] LABS: Basophils Absolute Auto 0.1 10^3/uL (0.0-0.1); Basophils Percent Auto 1.5 % (0.2-2.0); Eosinophils Absolute Auto 0.3 10^3/uL (0.0-0.7); Eosinophils Percent Auto 4.4 % (0.9-7.0); Hematocrit 38.3 % (42.0-54.0); Hemoglobin 13.1 g/dL (14.0-18.0); Immature Granulocytes Abs Auto 0.07 10^3/uL (0.00-0.03); Lymphocytes Absolute Auto 2.3 10^3/uL (1.2-3.8); Mean Corpuscular HGB Conc 34.2 g/dL (29.9-35.2); Mean Corpuscular Hemoglobin 31.4 pg (25.9-34.0); Mean Corpuscular Volume 91.8 fL (80.0-94.0); Mean Platelet Volume 12.3 fL (9.5-13.5); Monocytes Percent Auto 13.8 % (1.7-12.0); Neutrophils Absolute Auto 3.5 10^3/uL (1.4-6.5); Neutrophils Percent Auto 48.3 % (43.0-75.0); Platelet Count 207 10^3/uL (150-450); Red Blood Count 4.17 10^6/uL (4.70-6.10); Red Cell Distribution Width 12.3 % (11.0-15.0); White Blood Count 7.3 10^3/uL (4.0-11.0)
--- OUTSIDE RECORDS SUMMARY | 2024-05-14 06:27 | XMS_ITS | CCD ---
Author Organization [facility] Care Team Providers Care Roller Mechanic Name Role Phone Kenneth Cheng Unavailable Unavailable [...] Unavailable Sal Sabillon MD Primary Care Provider [phone] BECCA JUNE Attending Unavailable MARJ DEMARCO Attending Unavailable Sal Sabillon MD Primary Care Provider Sal Sabillon MD Primary Care Provider [phone] OSCAR ARVIZU Attending Unavailable OLGA VOGEL Attending [...] 16, 2018 1:09pm take 1 capsule by [facility] every twenty-four hours Coenzyme Q-10 100 [...] hydrochloride 10 mg oral tablet (14 sources) C-xyzudn-I-aspartate Receptor Antagonist Start: 08-14-2023 End: 12-22-2024 take 1 tablet by mouth in the morning memantine (Namenda) 10 MG tablet Indications: Cognitive decline Take 1 tablet (10 mg) by mouth in the morning and 1 tablet (10 mg) before bedtime. 60 tablet 12/23/2023 12/22/2024 Active take [facility] (Nam[facility]) 10 MG tablet Take 1 [...] at 2100 take 3 tablets by mo [facility] in the morning metoprolol tartrate (Lopressor) 25 [...] TAB PO Daily August 14, 2023 12:00am Mchenry 3 Fish Oil (4 sources) Mchenry 3 Fish Oil one tablet daily Active Mchenry-3 Fatty Acids (FISH OIL) 600 MG CAPS (3 sources) Mchenry-3 Fatty Ac ids (FISH OIL) 600 MG CAPS Take by mouth daily 0 Active pantoprazole 40 mg delayed release oral tablet (2 sources) Proton Pump Inhibitor Start: 2018 take 40 mg by mouth once daily before breakfast 40 mg, Oral, DAILY BEFORE BREAKFAST, First dose (after last modification) on 04/10/19 at 0700 Do not crush or break. polyethylene glycol 3350 [id number] mg powder for oral solution (1 source) [...] 04/05/2019 04/13/2019 Discontinued (Stop Taking at Discharge) Mchenry-3 Fatty Acids-Fish Oil (3 sources) Start: 03-15-2018 End: 03-16-2018 take 1 capsule by mouth once daily Mchenry-3 Fatty Acids-Fish Oil (Fish Oil) 300-1,000 mg [...] 5 % 50 mL IVPB (mini-bag) sennosides, alf 8.6 mg oral tablet (2 sources) Start: [...] wa rfarin (COUMADIN) 4 MG tablet Indications: Z-ML-Met-Sun Take 5 mg by mouth daily Indications: T-FJ-Pns-Sun 0 Active take 1 tablet by jules [...] disease, unspecified; Translations: [Atherosclerotic heart disease of [place] coronary artery with unstable angina pectoris] Onset: [...] left hand] Chronic Other aftercare (1 source) terminal 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; Translations: [detention (current) use of insulin] Onset: 8 Episodic Other aftercare (1 source) detention (current) use of aspirin; Translations: [detention (current) use of aspirin] Onset: 8 Episodic Other aftercare (1 source) terminal supervisor (current) use of oral hypoglycemic drugs; Translations: [detention (current) use of oral hypoglycemic drugs] Onset: [...] 08-14-2023 Chronic Other endocrine disorders (9 sources) Shasta's disease; 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] Onset: 9 [...] [facility] CO2 [Moles/Vol] 28.7 mmol/L 21.0-32.0 [facility] Creatinine [Mass/Vol] 2.24 mg/dL High 0.70-1.30 [facility] GFR/1.73 sq M.predicted MDRD (S/P/Bld) [Vol rate/Area] 35 mL/min/{1.73_m2} Low >=60 [facility] Glucose [Mass/Vol] 303 mg/dL High 74-106 [facility] Magnesium [Mass/Vol] 1.9 mg/dL 1.8-2.4 [facility] Potassium [Moles/Vol] 4.9 mmol/L 3.5-5.1 [facility] Sodium [Moles/Vol] 137 mmol/L 136-145 [facility] Urate [Mass/Vol] 7.7 mg/dL High 3.5-7.2 [facility] Urea nitrogen [Mass/Vol] 33.0 mg/dL High 7.0-18.0 [facility] Urea nitrogen/Creatini ne [Mass ratio] 14.7 mg/mg [facility] Bilirubin Ql (U) Negative NEGATIVE [facility] Glucose (U) [Mass/Vol] mg/dL Abnormal NEGATIVE [facility] [...] Vit D defi cient20-<30 ng/mL Vit D qbyrrssujgpj89-461 ng/mL Vit D sufficient>100 ng/mL Potential Toxicity Parathyroid Hormone (Intact) 61 pg/mL 15-65 [facility] Comment on above: Performed at: - [facility] [address] [id number] Director: Prakash Barbour PhD, Phone: [phone] Phosphorus Level 3.8 mg/dL 2.6-4.7 [facility] Urine Bacteria NONE SEEN #/HPF NONE SEEN [place] Urine Occult Blood Negative NEGATIVE [facility] [...] RBC (Bld) [#/Vol] 4.76 10 6/uL 4.70-6.10 [place] Serum or plasma anion gap de terminationon [...] objections with your upcoming dental procedure. Normal [facility] Office Visiton 01-06-2024 Follow-up visit [id number] AbrahamLuciaDon D 1950 M Date Provider Department Center 01/06/2024 BECCA RODRIGUEZ CARD [facility] Family History Problem Relation Age of Onset Diabetes Mother Coronary artery disease Brother Other Brother Heart failure Brother Family Status - Relation Status Age at Mother Brother Level of Service:06502 NE OFFICE/OUTPATIENT ESTABLISHED MOD MDM 30 MIN Reason for Visit and Comments: Hypertension [630419] Coronary Artery Disease [187] Normal [facility] Automated epithelial cells c ount in urine [...] [facility] Comment on above: <100 mg/dl [id number] 0-129 mg/dl NEAR OR ABOVE [id number] mg/dl BORDERLINE [id number] mg/dl HIGH>190 mg/dl VERY HIGH Cholesterol in [...] CARDIOVASCULAR RISK CO2 [Moles/Vol] 26.4 mmol/L 21.0-32.0 [facility] Creatinine [Mass/Vol] 1.57 mg/dL 0.70-1.30 [facility] Urate [Mass/Vol] 5.4 mg/dL 3.5-7.2 [facility] Urea nitrogen [Mass/Vol] 23.0 mg/dL 7.0-18.0 [facility] [...] Vit D defi cient20-<30 ng/mL Vit D mriilywyqqrx29-132 ng/mL Vit D sufficient>100 ng/mL Potential Toxicity C-Peptide 19.7 ng/mL 1.1-4.4 [facility] Comment on above: C-Peptide reference interval is for fasting patients.Performed at: [facility] - [facility] [address] [id number] Director: Prakash Barbour PhD, Phone: [phone] Free Triiodothyronine 1.71 pg/mL 2.18-3.98 [facility] Parathyroid Hormone (Intact) 34 pg/mL 15-65 [facility] Comment on above: Performed at: [facility] - [facility] [address] [id number] Director: Prakash Barbour PhD, Phone: [phone] Phosphorus Level 3.9 mg/dL 2.6-4.7 [facility] Urine Random Creatinine 178.56 mg/dL 20.00-300.00 [facility] [...] RBC (Bld) [#/Vol] 4.76 10 6/uL 4.70-6.10 [place] Serum or plasma anion gap de terminationon [...] [facility] 05-[facility]23 Follow-up visit [id number] Don Elkins 1950 M Date Provider Department Center 05/26/2023 [facility] Family History Problem Relation Age of Onset Diabetes Mother Coronary artery disease Brother Other Brother Heart failure Brother Family Status - Relation Status Age at Mother Brother Level of Service:56201 NE OFFICE/OUTPATIENT ESTABLISHED LOW MDM 20 MIN Normal [facility] PTH INTACTon 06-14-2022 PTH, Intact 48 pg/mL Normal 15-65 [facility] Comment on above: Performed By: #### P THINT #### [facility] [address] [place] [address] Dr. Stu Sequeira HEMOGRAM AND PLATELon 2022 Hematocrit (Bld) [Volume fraction] 47.3 % Normal 42.0-54.0 [facility] Comment on above: Performed By: #### H H #### [facility] [address] [place] [address] Dr. Stu Sequeira Hemoglobin (Bld) [Mass/Vol] 14.7 g/dL Normal 14.0-18.0 [facility] Comment on above: Performed By: #### H H #### [facility] [address] [place] [address] Dr. Stu Sequeira MCH (RBC) [Entitic mass] 31.0 pg Normal 25.9-34.0 [facility] Comment on above: Performed By: #### H H #### [facility] [address] [place] [address] Dr. Stu Sequeira MCHC (RBC) [Mass/Vol] 31.1 g/dL Normal 29.9-35.2 [facility] Comment on above: Performed By: #### H H #### [facility] [address] [place] [address] Dr. Stu Sequeira MCV (RBC) [Entitic vol] 99.8 fL Critically high 80.0-94.0 [facility] Comment on above: Performed By: #### H H #### [facility] [address] [place] [address] Dr. Stu Sequeira PLT 268 103/ul Normal 150-450 [facility] Comment on above: Performed By: #### H H #### [facility] [address] [address] [address] Stu Sequeira RBC 4.74 106/ul Normal 4.70-6.10 [facility] Comment on above: Performed By: #### H H #### [facility] [address] [address] [address] Stu Sequeira WBC 9.8 103/ul Normal 4.0-11.0 [facility] Comment on above: Performed By: #### H H #### [facility] [address] [address] [address] Stu Sequeira MAGNESIUMon 06-13-2022 Magnesium [Mass/Vol] 1.6 mg/dL Critically low 1.8-2.4 [facility] Comment on above: Performed By: #### U SANTINO, MG, RENAL #### [facility] [address] [place] [address] Dr. Stu Sequeira RENAL FUNCTION PANELon 06-13 Albumin [Mass/Vol] 3.8 g/dL Normal 3.4-5.0 [facility] Comment on above: Performed By: #### U SANTINO, MG, RENAL #### [facility] [address] [place] [address] Dr. Stu Sequeira Calcium [Mass/Vol] 9.2 mg/dL Normal 8.5-10.1 [facility] Comment on above: Performed By: #### U SANTINO, MG, RENAL #### [facility] [address] [place] [address] Dr. Stu Sequeira Chloride [Moles/Vol] 99 mmol/L Normal 98-107 [facility] Comment on above: Performed By: #### U SANTINO, MG, RENAL #### [facility] [address] [address] [address] Stu Sequeira CO2 [Moles/Vol] 32.2 mmol/L Critically high 21.0-32.0 [facility] Comment on above: Performed By: #### U SANTINO, MG, RENAL #### [facility] [address] [address] [address] Stu Sequeira Creatinine [Mass/Vol] 1.58 mg/dL Critically high 0.70-1.30 [facility] Comment on above: Performed By: #### U SANTINO, MG, RENAL #### [facility] [address] [address] [address] Stu Sequeira EGFR-AF FILIPINO 53 mL/min/1.73m2 Critically low >=60 [facility] Comment on above: Performed By: #### U SANTINO, MG, RENAL #### [facility] [address] [place] [address] Dr. Stu Sequeira EGFR-NON AF FILIPINO 43 mL/min/1.73m2 Critically low >=60 [facility] Comment on above: Performed By: #### U SANTINO, MG, RENAL #### [facility] [address] [place] [address] Dr. Stu Sequeira Glucose [Mass/Vol] 95 mg/dL Normal 74-106 [facility] Comment on above: Performed By: #### U SANTINO, MG, RENAL #### [facility] [address] [place] [address] Dr. Stu Sequeira Phosphate [Mass/Vol] 4.2 mg/dL Normal 2.6-4.7 [facility] Comment on above: Performed By: #### U SANTINO, MG, RENAL #### [facility] [address] [place] [address] Dr. Stu Sequeira Potassium [Moles/Vol] 4.9 mmol/L Normal 3.5-5.1 [facility] Comment on above: Performed By: #### U SANTINO, MG, RENAL #### [facility] [address] [place] [address] Dr. Stu Sequeira Sodium [Moles/Vol] 138 mmol/L Normal 136-145 [facility] Comment on above: Performed By: #### U SANTINO, MG, RENAL #### [facility] [address] [place] [address] Dr. Stu Sequeira Urea nitrogen [Mass/Vol] 24.0 mg/dL Critically high 7.0-18.0 [facility] Comment on above: Performed By: #### U SANTINO, MG, RENAL #### [facility] [address] [place] [address] Dr. Stu Sequeira UA RANDOM W/MICROSCOPICon BACTERIA TRACE Abnormal NONE SEEN [facility] Comment on above: Performed By: #### U AMIC #### [facility] [address] [place] [address] Dr. Stu Sequeira Bilirubin Ql (U) Negative Normal NEGATIVE [facility] Comment on above: Performed By: #### U AMIC #### [facility] [address] [place] [address] Dr. Stu Sequeira CAST NONE SEEN Normal NONE SEEN [facility] Comment on above: Performed By: #### U AMIC #### [facility] [address] [place] [address] Dr. Stu Sequeira Clarity (U) CLEAR Normal CLEAR [facility] Comment on above: Performed By: #### U AMIC #### [facility] [address] [place] [address] Dr. Stu Sequeira Color (U) YELLOW Normal YELLOW [facility] Comment on above: Performed By: #### U AMIC #### [facility] [address] [place] [address] Dr. Stu Sequeira Crystals LM Nom (Urine sed) NONE SEEN Normal NONE SEEN [facility] Comment on above: Performed By: #### U AMIC #### [facility] [address] [place] [address] Dr. Stu Sequeira Epithelial cells LM Ql (Urine sed) RARE Normal NONE SEEN /RARE [facility] Comment on above: Performed By: #### U AMIC #### [facility] [address] [place] [address] Dr. Stu Sequeira Glucose Ql (U) Negative Normal NEGATIVE [facility] Comment on above: Performed By: #### U AMIC #### [facility] [address] [place] [address] Dr. Stu Sequeira Hemoglobin Ql (U) Negative Normal NEGATIVE [facility] Comment on above: Performed By: #### U AMIC #### [facility] [address] [place] [address] Dr. Stu Sequeira Ketones Ql (U) Negative Normal NEGATIVE [facility] Comment on above: Performed By: #### U AMIC #### [facility] [address] [address] [address] Stu Sequeira LEUKOCYTES Negative Normal NEGATIVE [facility] Comment on above: Performed By: #### U AMIC #### [facility] [address] [place] [address] Dr. Stu Sequeira MUCOUS NONE SEEN Normal NONE SEEN [facility] Comment on above: Performed By: #### U AMIC #### [facility] [address] [place] [address] Dr. Stu Sequeira Nitrite Ql (U) Negative Normal NEGATIVE [facility] Comment on above: Performed By: #### U AMIC #### [facility] [address] [place] [address] Dr. Stu Sequeira pH (U) 5.5 [pH] Normal 5-9 [facility] Comment on above: Performed By: #### U AMIC #### [facility] [address] [place] [address] Dr. Stu Sequeira RBC NONE SEEN Abnormal 0-2 [facility] Comment on above: Performed By: #### U AMIC #### [facility] [address] [place] [address] Dr. Stu Sequeira SPEC GRAVITY 1.025 Normal 1.005-<=1.02 5 [facility] Comment on above: Performed By: #### U AMIC #### [facility] [address] [place] [address] Dr. Stu Sequeira UA PROTEIN Negative Normal NEGATIVE/ TRACE [facility] Comment on above: Performed By: #### U AMIC #### [facility] [address] [place] [address] Dr. Stu Sequeira Urobilinogen Qn (U) 0.2 {Yared'U}/dL Normal 0.2 - 1.0 [facility] Comment on above: Performed By: #### U AMIC #### [facility] [address] [place] [address] Dr. Stu Sequeira WBC 0-2 Abnormal NONE SEEN [facility] Comment on above: Performed By: #### U AMIC #### [facility] [address] [place] [address] Dr. Stu Sequeira URIC ACID SERUMon 06-13-2022 Urate [Mass/Vol] 5.7 mg/dL Normal 3.5-7.2 [facility] Comment on above: Performed By: #### U SANTINO, MG, RENAL #### [facility] [address] [place] [address] Dr. Stu Sequeira URINE T PROTEIN CREAT RATIOo n 06-13-2022 Protein (U) [Mass/Vol] 13.6 mg/dL Critically high <=12.0 [facility] Comment on above: Performed By: #### U RTPCR #### [facility] [address] [place] [address] Dr. Stu Sequeira UR PROT CREAT RAT 0.10 Normal [facility] Comment on above: Performed By: #### U RTPCR #### [facility] [address] [place] [address] Dr. Stu Sequeira URINE CREAT 133.40 mg/dL Normal 20.00-300.00 [facility] Comment on above: Performed By: #### U RTPCR #### [facility] [address] [place] [address] Dr. Stu Sequeira VITAMIN D 25 OHon 06-13-2022 VIT D 25-OH 66.5 ng/mL Normal [facility] Comment on above: Performed By: #### V ITAD #### [facility] [address] [place] [address] Dr. Stu Sequeira VIT D RANGES SEE BELOW Normal [facility] Comment on above: Result Comment: <20 ng/mL Vit D deficient 20 - <30 ng/mL Vit D insufficient 30 - 100 ng/mL Vit D sufficient >100 ng/mL Potential Toxicity Performed By: #### V ITAD #### [facility] [address] [place] [address] Dr. Stu Sequeira ECHOCARDIO M/2D COMPLETEon 0 06-07-2022 ECHOCARDIO M/2D COMPLETE Patient: ABRAHAM DON Robbie Exam Date: 06/07/2022 : 1950 Gender:M Ordering : DR DAMARIS MEIER M.D. Admission #: [id number] Family : DR SAL SABILLON M.D. Order #: [id number] CLICK HERE TO VIEW EXAM ECHOCARDIOGRAM REPORT [...] Meier M.D. on 06/07/2022 at 12:23 Normal [facility] LIPID PROFILEon 05-24-2022 CHOL-HDL RATIO NORM SEE BELOW Normal [facility] Comment on above: Result Comment: 3.3 - 4.4 LOW RISK 4.4 - 7.1 AVERAGE RISK 7.1 - 11.0 MODERATE RISK >11.0 HIGH RISK Performed By: #### L IPID #### [facility] [address] [place] [address] Dr. Stu Sequeira Cholesterol [Mass/Vol] 111 mg/dL Normal <=200 [facility] Comment on above: Performed By: #### L IPID #### [facility] [address] [place] [address] Dr. Stu Sequeira Cholesterol in HDL [Mass/Vol] 46 mg/dL Normal 40-60 [facility] Comment on above: Performed By: #### L IPID #### [facility] [address] [address] [address] Stu Sequeira Cholesterol in LDL [Mass/Vol] 47.0 mg/dL Normal [facility] Comment on above: Performed By: #### L IPID #### [facility] [address] [place] [address] Dr. Stu Sequeira Cholesterol.total /Cholesterol in HDL [Mass ratio] 2.4 {ratio} Normal [facility] Comment on above: Performed By: #### L IPID #### [facility] [address] [place] [address] Dr. Stu Sequeira HDL NORMAL > or = 60 mg/dl - LO W CARDIOVASCULAR RISK <40 mg/dl - HIGH CARDIOVASCULAR RISK Normal [facility] Comment on above: Performed By: #### L IPID #### [facility] [address] [place] [address] Dr. Stu Sequeira LDL CALC NORMAL SEE BELOW Normal [facility] Comment on above: Result Comment: <100 mg/dl OPTIMAL 100 - 129 mg/dl NEAR OR ABOVE OPTIMAL 130 - 159 mg/dl BORDERLINE HIGH 160 - 189 mg/dl HIGH >190 mg/dl VERY HIGH Performed By: #### L IPID #### [facility] [address] [place] [address] Dr. Stu Sequeira Triglyceride [Mass/Vol] 90 mg/dL Normal <=150 [facility] Comment on above: Performed By: #### L IPID #### [facility] [address] [place] [address] Dr. Stu Sequeira VLDL CALC 18.0 mg/dL Normal [facility] Comment on above: Performed By: #### L IPID #### [facility] [address] [place] [address] Dr. Stu Sequeira PTH INTACTon 11-20-2021 PTH, Intact 38 pg/mL Normal 15-65 [facility] Comment on above: Performed By: #### U RTPCR #### [facility] [address] [place] [address] Dr. Stu Sequeira HEMOGRAM AND PLATELon 2021 Hematocrit (Bld) [Volume fraction] 43.5 % Normal 42.0-54.0 [facility] Comment on above: Performed By: #### U RTPCR #### [facility] [address] [place] [address] Dr. Stu Sequeira Hemoglobin (Bld) [Mass/Vol] 14.5 g/dL Normal 14.0-18.0 [facility] Comment on above: Performed By: #### U RTPCR #### [facility] [address] [place] [address] Dr. Stu Sequeira MCH (RBC) [Entitic mass] 31.2 pg Normal 25.9-34.0 [facility] Comment on above: Performed By: #### U RTPCR #### [facility] [address] [place] [address] Dr. Stu Sequeira MCHC (RBC) [Mass/Vol] 33.3 g/dL Normal 29.9-35.2 [facility] Comment on above: Performed By: #### U RTPCR #### [facility] [address] [place] [address] Dr. Stu Sequeira MCV (RBC) [Entitic vol] 93.5 fL Normal 80.0-94.0 [facility] Comment on above: Performed By: #### U RTPCR #### [facility] [address] [place] [address] Dr. Stu Sequeira PLT 259 103/ul Normal 150-450 [facility] Comment on above: Performed By: #### U RTPCR #### [facility] [address] [place] [address] Dr. Stu Sequeira RBC 4.65 106/ul Critically low 4.70-6.10 [facility] Comment on above: Performed By: #### U RTPCR #### [facility] [address] [address] [address] Stu Sequeira WBC 9.9 103/ul Normal 4.0-11.0 [facility] Comment on above: Performed By: #### U RTPCR #### [facility] [address] [address] [address] Stu Sequeira MAGNESIUMon 11-17-2021 Magnesium [Mass/Vol] 2.0 mg/dL Normal 1.8-2.4 [facility] Comment on above: Performed By: #### U RTPCR #### [facility] [address] [address] [address] Stu Sequeira RENAL FUNCTION PANELon 11-17 Albumin [Mass/Vol] 3.5 g/dL Normal 3.4-5.0 [facility] Comment on above: Performed By: #### U RTPCR #### [facility] [address] [place] [address] Dr. Stu eSqueira Calcium [Mass/Vol] 8.8 mg/dL Normal 8.5-10.1 [facility] Comment on above: Performed By: #### U RTPCR #### [facility] [address] [place] [address] Dr. Stu Sequeira Chloride [Moles/Vol] 105 mmol/L Normal 98-107 [facility] Comment on above: Performed By: #### U RTPCR #### [facility] [address] [place] [address] Dr. Stu Sequeira CO2 [Moles/Vol] 28.4 mmol/L Normal 21.0-32.0 [facility] Comment on above: Performed By: #### U RTPCR #### [facility] [address] [address] [address] Stu Sequeira Creatinine [Mass/Vol] 1.69 mg/dL Critically high 0.70-1.30 [facility] Comment on above: Performed By: #### U RTPCR #### [facility] [address] [place] [address] Dr. Stu Sequeira EGFR-AF FILIPINO 49 mL/min/1.73m2 Critically low >=60 [facility] Comment on above: Performed By: #### U RTPCR #### [facility] [address] [address] [address] Stu Sequeira EGFR-NON AF FILIPINO 40 mL/min/1.73m2 Critically low >=60 [facility] Comment on above: Performed By: #### U RTPCR #### [facility] [address] [address] [address] Stu Sequeira Glucose [Mass/Vol] 120 mg/dL Critically high 74-106 [facility] Comment on above: Performed By: #### U RTPCR #### [facility] [address] [address] [address] Stu Sequeira Phosphate [Mass/Vol] 3.7 mg/dL Normal 2.6-4.7 [facility] Comment on above: Performed By: #### U RTPCR #### [facility] [address] [address] [address] Stu Sequeira Potassium [Moles/Vol] 5.0 mmol/L Normal 3.5-5.1 [facility] Comment on above: Performed By: #### U RTPCR #### [facility] [address] [address] [address] Stu Sequeira Sodium [Moles/Vol] 139 mmol/L Normal 136-145 [facility] Comment on above: Performed By: #### U RTPCR #### [facility] [address] [address] [address] Stu Sequeira Urea nitrogen [Mass/Vol] 21.0 mg/dL Critically high 7.0-18.0 [facility] Comment on above: Performed By: #### U RTPCR #### [facility] [address] [address] [address] Stu Sequeira UA RANDOM W/MICROSCOPICon BACTERIA NONE SEEN Normal NONE SEEN [facility] Comment on above: Performed By: #### U AMIC #### [facility] [address] [address] [address] Stu Sequeira Bilirubin Ql (U) Negative Normal NEGATIVE [facility] Comment on above: Performed By: #### U AMIC #### [facility] [address] [address] [address] Stu Sequeira CAST NONE SEEN Normal NONE SEEN [facility] Comment on above: Performed By: #### U AMIC #### [facility] [address] [address] [address] Stu Sequeira Clarity (U) SL CLOUDY Abnormal CLEAR [facility] Comment on above: Performed By: #### U AMIC #### [facility] [address] [address] [address] Stu Sequeira Color (U) LT. YELLOW Normal YELLOW [facility] Comment on above: Performed By: #### U AMIC #### [facility] [address] [place] [address] Dr. Stu Sequeira Crystals LM Nom (Urine sed) NONE SEEN Normal NONE SEEN [facility] Comment on above: Performed By: #### U AMIC #### [facility] [address] [address] [address] Stu Sequeira Epithelial cells LM Ql (Urine sed) RARE Normal NONE SEEN /RARE [facility] Comment on above: Performed By: #### U AMIC #### [facility] [address] [place] [address] Dr. Stu Sequeira Glucose Ql (U) Negative Normal NEGATIVE [facility] Comment on above: Performed By: #### U AMIC #### [facility] [address] [address] [address] Stu Sequeira Hemoglobin Ql (U) Negative Normal NEGATIVE [facility] Comment on above: Performed By: #### U AMIC #### [facility] [address] [address] [address] Stu Sequeira Ketones Ql (U) Negative Normal NEGATIVE [facility] Comment on above: Performed By: #### U AMIC #### [facility] [address] [place] [address] Dr. Stu Seqeuira LEUKOCYTES Negative Normal NEGATIVE [facility] Comment on above: Performed By: #### U AMIC #### [facility] [address] [address] [address] Stu Sequeira MUCOUS NONE SEEN Normal NONE SEEN [facility] Comment on above: Performed By: #### U AMIC #### [facility] [address] [place] [address] Dr. Stu Sequeira Nitrite Ql (U) Negative Normal NEGATIVE [facility] Comment on above: Performed By: #### U AMIC #### [facility] [address] [place] [address] Dr. Stu Sequeira pH (U) 5.0 [pH] Normal 5-9 [facility] Comment on above: Performed By: #### U AMIC #### [facility] [address] [place] [address] Dr. Stu Sequeira RBC 0-2 Normal 0-2 [facility] Comment on above: Performed By: #### U AMIC #### [facility] [address] [place] [address] Dr. Stu Sequeira SPEC GRAVITY 1.025 Normal 1.005-<=1.02 5 [facility] Comment on above: Performed By: #### U AMIC #### [facility] [address] [place] [address] Dr. Stu Sequeira UA PROTEIN Negative Normal NEGATIVE/ TRACE [facility] Comment on above: Performed By: #### U AMIC #### [facility] [address] [place] [address] Dr. Stu Sequeira Urobilinogen Qn (U) 0.2 {Yared'U}/dL Normal 0.2 - 1.0 [facility] Comment on above: Performed By: #### U AMIC #### [facility] [address] [place] [address] Dr. Stu Sequeira WBC NONE SEEN Normal NONE SEEN [facility] Comment on above: Performed By: #### U AMIC #### [facility] [address] [place] [address] Dr. Stu Sequeira URIC ACID SERUMon 11-17-2021 Urate [Mass/Vol] 7.6 mg/dL Critically high 3.5-7.2 [facility] Comment on above: Performed By: #### U RTPCR #### [facility] [address] [place] [address] Dr. Stu Sequeira URINE T PROTEIN CREAT RATIOo n 11-17-2021 Protein (U) [Mass/Vol] 19.9 mg/dL Critically high <=12.0 [facility] Comment on above: Performed By: #### U RTPCR #### [facility] [address] [place] [address] Dr. Stu Sequeira UR PROT CREAT RAT 0.13 Normal [facility] Comment on above: Performed By: #### U RTPCR #### [facility] [address] [place] [address] Dr. Stu Sequeira URINE CREAT 151.49 mg/dL Normal 20.00-300.00 [facility] Comment on above: Performed By: #### U RTPCR #### [facility] [address] [place] [address] Dr. Stu Sequeira VITAMIN D 25 OHon 11-17-2021 VIT D 25-OH 52.3 ng/mL Normal [facility] Comment on above: Performed By: #### U RTPCR #### [facility] [address] [place] [address] Dr. Sut Sequeira VIT D RANGES SEE BELOW Normal [facility] Comment on above: Result Comment: <20 ng/mL Vit D deficient 20 - <30 ng/mL Vit D insufficient 30 - 100 ng/mL Vit D sufficient >100 ng/mL Potential Toxicity Performed By: #### U RTPCR #### [facility] [address] [place] [address] Dr. Stu Sequeira Patient Correspondenceon Patient Correspondence [id number]:[address] [facility] Patient Letter FTMCon 2020 Patient Letter [facility] May 04, 2021 Dear [...] [facility] OVIDIO VALENTIN, Tam Soto [facility] Basic Metabolic Panlon 12-20 Anion gap [Moles/Vol] 8 mmol/L Low 9-18 [facility] Calcium [Mass/Vol] 8.9 mg/dL Normal 8.5-10.2 [facility] Chloride [Moles/Vol] 103 mmol/L Normal 97-105 [facility] CO2 [Moles/Vol] 27 mmol/L Normal 22-30 [facility] Creatinine [Mass/Vol] 1.52 mg/dL High 0.73-1.22 [facility] eGFR- Amer. [address] [facility] eGFR-All Other Races [address] [facility] Comment on above: Result Comment: eGFR (Estimated [...] GFR. Glucose [Mass/Vol] 238 mg/dL High 74-99 [facility] Comment on above: Result Comment: The [place] Diabetes [employer] (ADA) provides guidance for cutoff [...] Standards of Medical Care in Diabetes 2016, [place] [employer]. Diabetes Care. 2016.39(Suppl 1). Potassium [Moles/Vol] 4.6 mmol/L Normal 3.7-5.1 [facility] Sodium [Moles/Vol] 138 mmol/L Normal 136-144 [facility] Urea nitrogen [Mass/Vol] 19 mg/dL Normal 9-24 [facility] CNOVSPon 12-20-2020 CNOVSP Visit (SP) Office (H EMASA) DON ELKINS ([id number]) 1950 M Date Time Provider Department 12/20/20 2:15 PM CLAUDIO PARKER During your visit today, we recorded the following information about you: Temperature Pulse Respiration Blood pressure 97.7 degrees 81/minute 16/minute 136/63 Weight Height 112.9 kg 1.727 m Claudio Parker MD 12/21/2020 12:37 PM Signed PATIENT NAME: Don Elkins DATE: 12/20/2020 PRIMARY CARE PHYSICIAN: Dr. Sal Sabillon/Marj Demarco, SURGICAL SUPERVISOR OTHER PHYSICIANS: Dr. Wilson, Dr. Cortez, Dr. Arvizu ([facility] Neurology) Portions of this encounter note have [...] HISTORY: PAST MEDICAL HISTORY Diagnosis Date - Shasta's disease (HCC) - Coronary arteriosclerosis - DVT (deep venous thrombosis) (HCC) - Hepatitis B - HTN (hypertension) - Hyperthyroidism - AKASH (obstructive sleep apnea) - Prostate cancer (HCC) - Pulmonary embolism (HCC) PAST SURGICAL HISTORY: PAST SURGICAL HISTORY Procedure Laterality Date - APPENDECTOMY - CARPAL TUNNEL Bilateral - COLONOSCOP W/ OR W/O [facility] SPEC Colonoscopy - CORONARY ARTERY BYPASS GRAFT HX 03/19/2018 - LEFT HEART CATH,PERCUTANEOUS 03/15/2018 - PAST SURGICAL HISTORY OF Prostate removed - PAST SURGICAL HISTORY OF Cyst r (more content not included)... Normal [facility] Remote CBCDIF (for [facility] use o nly)on 12-20-2020 Abs Baso 0.08 k/uL Normal <0.11 [facility] Abs Rincon 0.55 k/uL Normal <0.87 [facility] Abs Neut 5.06 k/uL Normal 1.45-7.50 [facility] Absolute nRBC <0.01 Normal <0.01 [facility] Basophils/100 WBC (Bld) 1.0 % Normal [facility] DTYPE Auto Diff Normal [facility] Eosinophils (Bld) [#/Vol] 0.26 10*3/uL Normal <0.46 [facility] Eosinophils/100 WBC (Bld) 3.3 % Normal [facility] Erythrocyte distribution width (RBC) [Ratio] 12.2 % Normal 11.5-15.0 [facility] Hematocrit (Bld) [Volume fraction] 37.0 % Low 39.0-51.0 [facility] Hemoglobin (Bld) [Mass/Vol] 12.7 g/dL Low 13.0-17.0 [facility] Lymphocytes (Bld) [#/Vol] 1.86 10*3/uL Normal 1.00-4.00 [facility] Lymphocytes/100 WBC (Bld) 23.8 % Normal [facility] MCH 30.7 pG Normal 26.0-34.0 [facility] MCHC (RBC) [Mass/Vol] 34.3 g/dL Normal 30.5-36.0 [facility] MCV (RBC) [Entitic vol] 89.4 fL Normal 80.0-100.0 [facility] Monocytes/100 WBC (Bld) 7.0 % Normal [facility] Neutrophils/100 WBC (Bld) 64.9 % Normal [facility] NRBCs 0.0 /[address] [facility] Platelet mean volume (Bld) [Entitic vol] 11.9 fL Normal 9.0-12.7 [facility] Platelets (Bld) [#/Vol] 207 10*3/uL Normal 150-400 [facility] RBC (Bld) [#/Vol] 4.14 10*6/uL Low 4.20-6.00 [facility] WBC (Bld) [#/Vol] 7.81 10*3/uL Normal 3.70-11.00 [facility] CNPNon 12-19-2020 CNPN Telephone (HEMASA) DON ELKINS ([id number]) 1950 M Date Time Provider Department 12/19/20 CLAUDIO PARKER During your visit today, we recorded the following information about you: Marianna Haque RN 12/19/2020 2:08 PM Signed Orders for CBC, CMP, and Prothrombin Gene Mutation pended. Please review and approve. Marianna Haque RN Allergies As of Date: 12/19/2020 (No Known Allergies) Date Reviewed: 12/19/2020 Reviewed by: Nela Schuler APRN.SURGICAL SUPERVISOR - Fully Assessed Reason for Visit: Appointment [186] Primary Visit Diagnosis:Other acute pulmonary embolism without acute cor pulmonale (HCC) [I26.99] Other Visit Diagnoses:Shasta disease (HCC) [E27.1] Prostate cancer (HCC) [C61] Hypercoagulable state (HCC) [D68.59] Personal history of venous thrombosis and embolism [Z86.718] Order(s):CBC + DIFF (FOR REMOTE [facility] USE) [[id number]] Order #: [id number] FUTURE BASIC METABOLIC PNL [SQBMP] Order #: [id number] FUTURE Prescriptions as of 02/16/2021 - atorvastatin [...] Encounter Status:Closed by MAYNOR WALLIS on 02/16/21 [facility] CNOVSPon 11-24-2020 CNOVSP Visit (SP) Office (Jessi THOMASON) DON ELKINS ([id number]) 1950 M Date Time Provider Department 11/24/20 [...] PHYSICIANS: Dr. Wilson, Dr. Cortez, Dr. Arvizu ([facility] Neurology) HPI: This is a 70 year [...] thrombosis) (HCC) (more content not included)... Normal [facility] Consent for Procedure/Surger yon 11-15-2020 Consent for Procedure/Surgery [id number]:[address] [facility] Ambulatory Clinical Summaryo n 11-14-2020 Ambulatory Clinical Summary {[id number]}CD:[id number] Normal [facility] Ambulatory Clinical Summary {[id number] Normal [facility] Gastroenterology Office/Clin ic Noteon 11-14-2020 Gastroenterology Office/Clinic Note Chief Complaint self ref- diarrhea HPI Staff This is a 70 year old male who presents today for a self referral for diarrhea. History of Present Illness The patient or their guardian verbally consented to allow Madeline Ada Collins to record this visit. The 70-year-old white male presents today for dysphagia and diarrhea. He was evaluated by Dr. Stone Arboleda in 2014 for dysphagia and history of colon polyps. He proceeded with an EGD and esophageal motility testing and was diagnosed with achalasia. The patient was referred to [facility], but he states he was not [...] by Dr. Arboleda. He was referred to [facility] at that time, but pneumatic dilation was not done or recommended by [facility] as, according to the patient, they were concerned about possible perforation. The patient continued to have sporadic dysphagia. I will repeat an EGD for re-evaluation. 5. Small intestinal bacterial overgrowth (SIBO) (K63.89: Other specified diseases of intestine) The patient will start probiotics and antibiotics. ATTESTATION: Documentation services were performed by SOTO after patient consented to recording for virtual business account specialist and provider reviewed before signing. SOTO: Marcelina Lai Follow-up With When Contact Information JANICE VALENTIN, BHARGAVI Braun MED Within [address] [facility] [place] [address]- Additional Instructions: Patient Education Chronic Diarrhea Problem List/Past Medical History Ongoing Brigida disease BMI 35.0-35.9,adult Diabetes Frequency GERD Hematuria Hx of nursing home use of blood thinners Hypertension Kidney stone Microscopic hematuria- with sy (more content not included)... Normal [facility] Comment on above: Result Comment: Elec [...] and water are not available, use hand rewriter. ? Make sure that all people in your household wash their hands well and often. ? Take cfjz-rqe-qfyjlnw and prescription medicines only as told by [...] and water are not available, use hand rewriter. ? It is important that you treat your diarrhea as told by your health care provider. This information is not intended to replace advice given to you by your health care provider. Make sure you discuss any questions you have with your health care provider. Document Released: 07/25/2004 Document Revised: 07/31/2018 Document Reviewed: 03/24/2017 [employer] Patient Education ? 2019 [employer] Normal [facility] Complete Blood Count Auto Di ffon 09-16-2020 Basophils (Bld) [#/Vol] 0.1 10*3/uL Normal 0.0-0.2 [facility] Comment on above: Result Comment: PERF ORMED BY: [place] [address] PATHOLOGIST SUPERVISOR [employer] TO[employer] GRACIA M.D. Performed By: #### B 2 GLYPROT XOCHITL, FACTOR II DNA, HOMOCYS PL, FACV LEIDM, PROCF, LIPA, LUPANTCOAG, PROT S FUN, METH, CARDIO GMA, AT3 DEF PROFILE #### [facility] , #### [id number], CBC, PHOS, BMP, FE PRO, MG #### [place] [address] [place] Basophils/100 WBC (Bld) 0.8 % Normal . [facility] Comment on above: Performed By: #### B 2 GLYPROT XOCHITL, FACTOR II DNA, HOMOCYS PL, FACV LEIDM, PROCF, LIPA, LUPANTCOAG, PROT S FUN, METH, CARDIO GMA, AT3 DEF PROFILE #### [facility] , #### [id number], CBC, PHOS, BMP, FE PRO, MG #### [facility] [address] [place] [address] [place] Eosinophils (Bld) [#/Vol] 0.3 10*3/uL Normal 0.0-0.45 [facility] Comment on above: Performed By: #### B 2 GLYPROT XOCHITL, FACTOR II DNA, HOMOCYS PL, FACV LEIDM, PROCF, LIPA, LUPANTCOAG, PROT S FUN, METH, CARDIO GMA, AT3 DEF PROFILE #### [facility] , #### [id number], CBC, PHOS, BMP, FE PRO, MG #### [place] [address] [place] Eosinophils/100 WBC (Bld) 3.3 % Normal . [facility] Comment on above: Performed By: #### B 2 GLYPROT XOCHITL, FACTOR II DNA, HOMOCYS PL, FACV LEIDM, PROCF, LIPA, LUPANTCOAG, PROT S FUN, METH, CARDIO GMA, AT3 DEF PROFILE #### [facility] , #### [id number], CBC, PHOS, BMP, FE PRO, MG #### [address] Erythrocyte distribution width (RBC) [Ratio] 13.2 % Normal 12.0-14.8 [facility] Comment on above: Performed By: #### B 2 GLYPROT XOCHITL, FACTOR II DNA, HOMOCYS PL, FACV LEIDM, PROCF, LIPA, LUPANTCOAG, PROT S FUN, METH, CARDIO GMA, AT3 DEF PROFILE #### [facility] , #### [id number], CBC, PHOS, BMP, FE PRO, MG #### [address] Hematocrit (Bld) [Volume fraction] 36.9 % Low 38.8-50.0 [facility] Comment on above: Performed By: #### B 2 GLYPROT XOCHITL, FACTOR II DNA, HOMOCYS PL, FACV LEIDM, PROCF, LIPA, LUPANTCOAG, PROT S FUN, METH, CARDIO GMA, AT3 DEF PROFILE #### [facility] , #### [id number], CBC, PHOS, BMP, FE PRO, MG #### [address] Hemoglobin (Bld) [Mass/Vol] 12.5 g/dL Low 13.0-17.0 [facility] Comment on above: Performed By: #### B 2 GLYPROT XOCHITL, FACTOR II DNA, HOMOCYS PL, FACV LEIDM, PROCF, LIPA, LUPANTCOAG, PROT S FUN, METH, CARDIO GMA, AT3 DEF PROFILE #### [facility] , #### [id number], CBC, PHOS, BMP, FE PRO, MG #### [facility] [address] Lymphocytes (Bld) [#/Vol] 2.3 10*3/uL Normal 1.00-4.8 [facility] Comment on above: Performed By: #### B 2 GLYPROT XOCHITL, FACTOR II DNA, HOMOCYS PL, FACV LEIDM, PROCF, LIPA, LUPANTCOAG, PROT S FUN, METH, CARDIO GMA, AT3 DEF PROFILE #### [facility] , #### [id number], CBC, PHOS, BMP, FE PRO, MG #### [address] Lymphocytes/100 WBC (Bld) 24.6 % Normal . [facility] Comment on above: Performed By: #### B 2 GLYPROT XOCHITL, FACTOR II DNA, HOMOCYS PL, FACV LEIDM, PROCF, LIPA, LUPANTCOAG, PROT S FUN, METH, CARDIO GMA, AT3 DEF PROFILE #### [facility] , #### [id number], CBC, PHOS, BMP, FE PRO, MG #### [address] MCH (RBC) [Entitic mass] 30.7 pg Normal 27.5-35.2 [facility] Comment on above: Performed By: #### B 2 GLYPROT XOCHITL, FACTOR II DNA, HOMOCYS PL, FACV LEIDM, PROCF, LIPA, LUPANTCOAG, PROT S FUN, METH, CARDIO GMA, AT3 DEF PROFILE #### [facility] , #### [id number], CBC, PHOS, BMP, FE PRO, MG #### [address] MCV (RBC) [Entitic vol] 90.7 fL Normal 83.5-101 [facility] Comment on above: Performed By: #### B 2 GLYPROT XOCHITL, FACTOR II DNA, HOMOCYS PL, FACV LEIDM, PROCF, LIPA, LUPANTCOAG, PROT S FUN, METH, CARDIO GMA, AT3 DEF PROFILE #### [facility] , #### [id number], CBC, PHOS, BMP, FE PRO, MG #### [address] Mean Corpuscular HGB Conc 33.8 g/dL Normal 32.5-35.6 [facility] Comment on above: Performed By: #### B 2 GLYPROT XOCHITL, FACTOR II DNA, HOMOCYS PL, FACV LEIDM, PROCF, LIPA, LUPANTCOAG, PROT S FUN, METH, CARDIO GMA, AT3 DEF PROFILE #### [facility] , #### [id number], CBC, PHOS, BMP, FE PRO, MG #### [address] Monocytes (Bld) [#/Vol] 0.7 10*3/uL Normal 0.0-0.8 [facility] Comment on above: Performed By: #### B 2 GLYPROT XOCHITL, FACTOR II DNA, HOMOCYS PL, FACV LEIDM, PROCF, LIPA, LUPANTCOAG, PROT S FUN, METH, CARDIO GMA, AT3 DEF PROFILE #### [facility] , #### [id number], CBC, PHOS, BMP, FE PRO, MG #### [address] Monocytes/100 WBC (Bld) 7.1 % Normal . [facility] Comment on above: Performed By: #### B 2 GLYPROT XOCHITL, FACTOR II DNA, HOMOCYS PL, FACV LEIDM, PROCF, LIPA, LUPANTCOAG, PROT S FUN, METH, CARDIO GMA, AT3 DEF PROFILE #### [facility] , #### [id number], CBC, PHOS, BMP, FE PRO, MG #### [address] Neutrophils (Bld) [#/Vol] 6.0 10*3/uL Normal 1.8-7.7 [facility] Comment on above: Performed By: #### B 2 GLYPROT XOCHITL, FACTOR II DNA, HOMOCYS PL, FACV LEIDM, PROCF, LIPA, LUPANTCOAG, PROT S FUN, METH, CARDIO GMA, AT3 DEF PROFILE #### [facility] , #### [id number], CBC, PHOS, BMP, FE PRO, MG #### [address] Neutrophils/100 WBC (Bld) 64.2 % Normal . [facility] Comment on above: Performed By: #### B 2 GLYPROT XOCHITL, FACTOR II DNA, HOMOCYS PL, FACV LEIDM, PROCF, LIPA, LUPANTCOAG, PROT S FUN, METH, CARDIO GMA, AT3 DEF PROFILE #### [facility] , #### [id number], CBC, PHOS, BMP, FE PRO, MG #### [address] Nucleated RBC/100 WBC (Bld) [Ratio] 0.3 % Normal 0-0.5 [facility] Comment on above: Performed By: #### B 2 GLYPROT XOCHITL, FACTOR II DNA, HOMOCYS PL, FACV LEIDM, PROCF, LIPA, LUPANTCOAG, PROT S FUN, METH, CARDIO GMA, AT3 DEF PROFILE #### [facility] , #### [id number], CBC, PHOS, BMP, FE PRO, MG #### [address] Platelet mean volume (Bld) [Entitic vol] 10.5 fL High 6.6-10.1 [facility] Comment on above: Performed By: #### B 2 GLYPROT XOCHITL, FACTOR II DNA, HOMOCYS PL, FACV LEIDM, PROCF, LIPA, LUPANTCOAG, PROT S FUN, METH, CARDIO GMA, AT3 DEF PROFILE #### [facility] , #### [id number], CBC, PHOS, BMP, FE PRO, MG #### [facility] [address] Platelets (Bld) [#/Vol] 232 10*3/uL Normal 150-450 [facility] Comment on above: Performed By: #### B 2 GLYPROT XOCHITL, FACTOR II DNA, HOMOCYS PL, FACV LEIDM, PROCF, LIPA, LUPANTCOAG, PROT S FUN, METH, CARDIO GMA, AT3 DEF PROFILE #### [facility] , #### [id number], CBC, PHOS, BMP, FE PRO, MG #### [facility] [address] [place] [id number] RBC (Bld) [#/Vol] 4.07 10*6/uL Normal 3.90-5.60 [place] Comment on above: Performed By: #### B 2 GLYPROT XOCHITL, FACTOR II DNA, HOMOCYS PL, FACV LEIDM, PROCF, LIPA, LUPANTCOAG, PROT S FUN, METH, CARDIO GMA, AT3 DEF PROFILE #### [facility] , #### [id number], CBC, PHOS, BMP, FE PRO, MG #### [facility] [address] [place] [address] WBC (Bld) [#/Vol] 9.4 10*3/uL Normal 4.5-11.0 [facility] Comment on above: Performed By: #### B 2 GLYPROT XOCHITL, FACTOR II DNA, HOMOCYS PL, FACV LEIDM, PROCF, LIPA, LUPANTCOAG, PROT S FUN, METH, CARDIO GMA, AT3 DEF PROFILE #### [facility] , #### [id number], CBC, PHOS, BMP, FE PRO, MG #### [facility] [address] [place] [address] Comprehensive Metabolic Pane harmony 09-16-2020 Albumin [Mass/Vol] 2.9 g/dL Low 3.2-5.5 [facility] Comment on above: Performed By: #### B 2 GLYPROT XOCHITL, FACTOR II DNA, HOMOCYS PL, FACV LEIDM, PROCF, LIPA, LUPANTCOAG, PROT S FUN, METH, CARDIO GMA, AT3 DEF PROFILE #### [facility] , #### [id number], CBC, PHOS, BMP, FE PRO, MG #### [address] Albumin/Globulin [Mass ratio] 1.3 {ratio} Normal [facility] Comment on above: Performed By: #### B 2 GLYPROT XOCHITL, FACTOR II DNA, HOMOCYS PL, FACV LEIDM, PROCF, LIPA, LUPANTCOAG, PROT S FUN, METH, CARDIO GMA, AT3 DEF PROFILE #### [facility] , #### [id number], CBC, PHOS, BMP, FE PRO, MG #### [address] ALP [Catalytic activity/Vol] 39 U/L Normal 32-92 [facility] Comment on above: Performed By: #### B 2 GLYPROT XOCHITL, FACTOR II DNA, HOMOCYS PL, FACV LEIDM, PROCF, LIPA, LUPANTCOAG, PROT S FUN, METH, CARDIO GMA, AT3 DEF PROFILE #### [facility] , #### [id number], CBC, PHOS, BMP, FE PRO, MG #### [address] ALT [Catalytic activity/Vol] 71 U/L High 10-60 [facility] Comment on above: Performed By: #### B 2 GLYPROT XOCHITL, FACTOR II DNA, HOMOCYS PL, FACV LEIDM, PROCF, LIPA, LUPANTCOAG, PROT S FUN, METH, CARDIO GMA, AT3 DEF PROFILE #### [facility] , #### [id number], CBC, PHOS, BMP, FE PRO, MG #### [address] AST [Catalytic activity/Vol] 29 U/L Normal 10-42 [facility] Comment on above: Performed By: #### B 2 GLYPROT XOCHITL, FACTOR II DNA, HOMOCYS PL, FACV LEIDM, PROCF, LIPA, LUPANTCOAG, PROT S FUN, METH, CARDIO GMA, AT3 DEF PROFILE #### [facility] , #### [id number], CBC, PHOS, BMP, FE PRO, MG #### [address] Bilirubin [Mass/Vol] 1.2 mg/dL Normal 0.3-1.2 [facility] Comment on above: Performed By: #### B 2 GLYPROT XOCHITL, FACTOR II DNA, HOMOCYS PL, FACV LEIDM, PROCF, LIPA, LUPANTCOAG, PROT S FUN, METH, CARDIO GMA, AT3 DEF PROFILE #### [facility] , #### [id number], CBC, PHOS, BMP, FE PRO, MG #### [address] Calcium [Mass/Vol] 8.1 mg/dL Low 8.2-10.2 [facility] Comment on above: Performed By: #### B 2 GLYPROT XOCHITL, FACTOR II DNA, HOMOCYS PL, FACV LEIDM, PROCF, LIPA, LUPANTCOAG, PROT S FUN, METH, CARDIO GMA, AT3 DEF PROFILE #### [facility] , #### [id number], CBC, PHOS, BMP, FE PRO, MG #### [address] Chloride [Moles/Vol] 107 mmol/L Normal 95-114 [facility] Comment on above: Performed By: #### B 2 GLYPROT XOCHITL, FACTOR II DNA, HOMOCYS PL, FACV LEIDM, PROCF, LIPA, LUPANTCOAG, PROT S FUN, METH, CARDIO GMA, AT3 DEF PROFILE #### [facility] , #### [id number], CBC, PHOS, BMP, FE PRO, MG #### [facility] [address] [place] [address] CO2 [Moles/Vol] 24.3 mmol/L Normal 22.0-30.0 [facility] Comment on above: Performed By: #### B 2 GLYPROT XOCHITL, FACTOR II DNA, HOMOCYS PL, FACV LEIDM, PROCF, LIPA, LUPANTCOAG, PROT S FUN, METH, CARDIO GMA, AT3 DEF PROFILE #### [facility] , #### [id number], CBC, PHOS, BMP, FE PRO, MG #### [facility] [address] [place] [address] Creatinine [Mass/Vol] 1.40 mg/dL High 0.64-1.27 [facility] Comment on above: Performed By: #### B 2 GLYPROT XOCHITL, FACTOR II DNA, HOMOCYS PL, FACV LEIDM, PROCF, LIPA, LUPANTCOAG, PROT S FUN, METH, CARDIO GMA, AT3 DEF PROFILE #### [facility] , #### [id number], CBC, PHOS, BMP, FE PRO, MG #### [facility] [address] [place] [address] Creatinine Clr Calc Pharmacy 59.28 [facility] Comment on above: Result Comment: PERF ORMED BY: [place] [address] PATHOLOGIST SUPER[employer] GRACIA M.D. Performed By: #### B 2 GLYPROT XOCHITL, FACTOR II DNA, HOMOCYS PL, FACV LEIDM, PROCF, LIPA, LUPANTCOAG, PROT S FUN, METH, CARDIO GMA, AT3 DEF PROFILE #### [facility] , #### [id number], CBC, PHOS, BMP, FE PRO, MG #### [facility] [address] [place] [address] Estimated GFR ( Gabriela > 60 Normal [facility] Comment on above: Result Comment: GFR estimated reference range: According to KDOQI guidelines, <60 ml/min/1.73m2 is sufficient to diagnose a patient with chronic kidney disease. Performed By: #### B 2 GLYPROT XOCHITL, FACTOR II DNA, HOMOCYS PL, FACV LEIDM, PROCF, LIPA, LUPANTCOAG, PROT S FUN, METH, CARDIO GMA, AT3 DEF PROFILE #### [facility] , #### [id number], CBC, PHOS, BMP, FE PRO, MG #### [facility] [address] Estimated GFR (Non- Am 50 Normal [facility] Comment on above: Performed By: #### B 2 GLYPROT XOCHITL, FACTOR II DNA, HOMOCYS PL, FACV LEIDM, PROCF, LIPA, LUPANTCOAG, PROT S FUN, METH, CARDIO GMA, AT3 DEF PROFILE #### [facility] , #### [id number], CBC, PHOS, BMP, FE PRO, MG #### [facility] [address] Globulin (S) [Mass/Vol] 2.3 g/dL [facility] Comment on above: Performed By: #### B 2 GLYPROT XOCHITL, FACTOR II DNA, HOMOCYS PL, FACV LEIDM, PROCF, LIPA, LUPANTCOAG, PROT S FUN, METH, CARDIO GMA, AT3 DEF PROFILE #### [facility] , #### [id number], CBC, PHOS, BMP, FE PRO, MG #### [facility] [address] Glucose [Mass/Vol] 202 mg/dL High 70-100 [facility] Comment on above: Result Comment: [place] Glucose Reference Range is dependent on [...] AT3 DEF PROFILE #### [facility] , #### [id number], CBC, PHOS, BMP, FE PRO, MG #### [address] Potassium [Moles/Vol] 4.5 mmol/L Normal 3.5-5.1 [facility] Comment on above: Performed By: #### B 2 GLYPROT XOCHITL, FACTOR II DNA, HOMOCYS PL, FACV LEIDM, PROCF, LIPA, LUPANTCOAG, PROT S FUN, METH, CARDIO GMA, AT3 DEF PROFILE #### [facility] , #### [id number], CBC, PHOS, BMP, FE PRO, MG #### [address] Protein [Mass/Vol] 5.2 g/dL Low 6.1-7.9 [facility] Comment on above: Performed By: #### B 2 GLYPROT XOCHITL, FACTOR II DNA, HOMOCYS PL, FACV LEIDM, PROCF, LIPA, LUPANTCOAG, PROT S FUN, METH, CARDIO GMA, AT3 DEF PROFILE #### [facility] , #### [id number], CBC, PHOS, BMP, FE PRO, MG #### [address] Sodium [Moles/Vol] 137 mmol/L Normal 136-146 [facility] Comment on above: Performed By: #### B 2 GLYPROT XOCHITL, FACTOR II DNA, HOMOCYS PL, FACV LEIDM, PROCF, LIPA, LUPANTCOAG, PROT S FUN, METH, CARDIO GMA, AT3 DEF PROFILE #### [facility] , #### [id number], CBC, PHOS, BMP, FE PRO, MG #### [address] Urea nitrogen [Mass/Vol] 15 mg/dL Normal 9-23 [facility] Comment on above: Performed By: #### B 2 GLYPROT XOCHITL, FACTOR II DNA, HOMOCYS PL, FACV LEIDM, PROCF, LIPA, LUPANTCOAG, PROT S FUN, METH, CARDIO GMA, AT3 DEF PROFILE #### [facility] , #### [id number], CBC, PHOS, BMP, FE PRO, MG #### [facility] [address] Glucose Poct Glucometerson 0 09-16-2020 Commemt1 Glu2: Cleaned Meter Normal [place] Comment on above: Result Comment: PERF ORMED BY: [place] [address] PATHOLOGIST SUPER[employer]IA M.D. Performed By: #### B 2 GLYPROT XOCHITL, FACTOR II DNA, HOMOCYS PL, FACV LEIDM, PROCF, LIPA, LUPANTCOAG, PROT S FUN, METH, CARDIO GMA, AT3 DEF PROFILE #### [facility] , #### [id number], CBC, PHOS, BMP, FE PRO, MG #### [facility] [address] [place] [address] Glucose [Mass/Vol] 184 mg/dL [facility] Comment on above: Result Comment: [facility] Glucose Reference Range is dependent on time and content of last meal. Glucose of more than 200 mg/dL in a nonstressed, ambulatory subject supports the diagnosis of Diabetes Mellitus. Performed By: #### B 2 GLYPROT XOCHITL, FACTOR II DNA, HOMOCYS PL, FACV LEIDM, PROCF, LIPA, LUPANTCOAG, PROT S FUN, METH, CARDIO GMA, AT3 DEF PROFILE #### [facility] , #### [id number], CBC, PHOS, BMP, FE PRO, MG #### [facility] [address] Blood Cultureon 09-15-2020 Bacteria identified Cx Nom (Bld) NO GROWTH 5 DAYS PERFORMED BY: [place] [address] PATHOLOGIST SU[employer] GRACIA M.D. Normal [facility] Comment on above: Performed By: #### B 2 GLYPROT XOCHITL, FACTOR II DNA, HOMOCYS PL, FACV LEIDM, PROCF, LIPA, LUPANTCOAG, PROT S FUN, METH, CARDIO GMA, AT3 DEF PROFILE #### [facility] , #### [id number], CBC, PHOS, BMP, FE PRO, MG #### [address] Complete Blood Count Auto Di ffon 09-15-2020 Basophils (Bld) [#/Vol] 0.1 10*3/uL Normal 0.0-0.2 [facility] Comment on above: Result Comment: PERF ORMED BY: [place] [address] PATHOLOGIST SUPER[employer] M.D. Performed By: #### B 2 GLYPROT XOCHITL, FACTOR II DNA, HOMOCYS PL, FACV LEIDM, PROCF, LIPA, LUPANTCOAG, PROT S FUN, METH, CARDIO GMA, AT3 DEF PROFILE #### [facility] , #### [id number], CBC, PHOS, BMP, FE PRO, MG #### [address] Basophils/100 WBC (Bld) 0.7 % Normal . [facility] Comment on above: Performed By: #### B 2 GLYPROT XOCHITL, FACTOR II DNA, HOMOCYS PL, FACV LEIDM, PROCF, LIPA, LUPANTCOAG, PROT S FUN, METH, CARDIO GMA, AT3 DEF PROFILE #### [facility] , #### [id number], CBC, PHOS, BMP, FE PRO, MG #### [place] [address] [place] Eosinophils (Bld) [#/Vol] 0.0 10*3/uL Normal 0.0-0.45 [facility] Comment on above: Performed By: #### B 2 GLYPROT XOCHITL, FACTOR II DNA, HOMOCYS PL, FACV LEIDM, PROCF, LIPA, LUPANTCOAG, PROT S FUN, METH, CARDIO GMA, AT3 DEF PROFILE #### [facility] , #### [id number], CBC, PHOS, BMP, FE PRO, MG #### [address] Eosinophils/100 WBC (Bld) 0.2 % Normal . [facility] Comment on above: Performed By: #### B 2 GLYPROT XOCHITL, FACTOR II DNA, HOMOCYS PL, FACV LEIDM, PROCF, LIPA, LUPANTCOAG, PROT S FUN, METH, CARDIO GMA, AT3 DEF PROFILE #### [facility] , #### [id number], CBC, PHOS, BMP, FE PRO, MG #### [address] Erythrocyte distribution width (RBC) [Ratio] 13.2 % Normal 12.0-14.8 [facility] Comment on above: Performed By: #### B 2 GLYPROT XOCHITL, FACTOR II DNA, HOMOCYS PL, FACV LEIDM, PROCF, LIPA, LUPANTCOAG, PROT S FUN, METH, CARDIO GMA, AT3 DEF PROFILE #### [facility] , #### [id number], CBC, PHOS, BMP, FE PRO, MG #### [address] Hematocrit (Bld) [Volume fraction] 37.0 % Low 38.8-50.0 [facility] Comment on above: Performed By: #### B 2 GLYPROT XOCHITL, FACTOR II DNA, HOMOCYS PL, FACV LEIDM, PROCF, LIPA, LUPANTCOAG, PROT S FUN, METH, CARDIO GMA, AT3 DEF PROFILE #### [facility] , #### [id number], CBC, PHOS, BMP, FE PRO, MG #### [address] [place] [address] [place] Hemoglobin (Bld) [Mass/Vol] 12.8 g/dL Low 13.0-17.0 [facility] Comment on above: Performed By: #### B 2 GLYPROT XOCHITL, FACTOR II DNA, HOMOCYS PL, FACV LEIDM, PROCF, LIPA, LUPANTCOAG, PROT S FUN, METH, CARDIO GMA, AT3 DEF PROFILE #### [facility] , #### [id number], CBC, PHOS, BMP, FE PRO, MG #### [address] Lymphocytes (Bld) [#/Vol] 1.3 10*3/uL Normal 1.00-4.8 [facility] Comment on above: Performed By: #### B 2 GLYPROT XOCHITL, FACTOR II DNA, HOMOCYS PL, FACV LEIDM, PROCF, LIPA, LUPANTCOAG, PROT S FUN, METH, CARDIO GMA, AT3 DEF PROFILE #### [facility] , #### [id number], CBC, PHOS, BMP, FE PRO, MG #### [address] Lymphocytes/100 WBC (Bld) 10.6 % Normal . [facility] Comment on above: Performed By: #### B 2 GLYPROT XOCHITL, FACTOR II DNA, HOMOCYS PL, FACV LEIDM, PROCF, LIPA, LUPANTCOAG, PROT S FUN, METH, CARDIO GMA, AT3 DEF PROFILE #### [facility] , #### [id number], CBC, PHOS, BMP, FE PRO, MG #### [address] MCH (RBC) [Entitic mass] 31.8 pg Normal 27.5-35.2 [facility] Comment on above: Performed By: #### B 2 GLYPROT XOCHITL, FACTOR II DNA, HOMOCYS PL, FACV LEIDM, PROCF, LIPA, LUPANTCOAG, PROT S FUN, METH, CARDIO GMA, AT3 DEF PROFILE #### [facility] , #### [id number], CBC, PHOS, BMP, FE PRO, MG #### [address] MCV (RBC) [Entitic vol] 91.7 fL Normal 83.5-101 [facility] Comment on above: Performed By: #### B 2 GLYPROT XOCHITL, FACTOR II DNA, HOMOCYS PL, FACV LEIDM, PROCF, LIPA, LUPANTCOAG, PROT S FUN, METH, CARDIO GMA, AT3 DEF PROFILE #### [facility] , #### [id number], CBC, PHOS, BMP, FE PRO, MG #### [address] Mean Corpuscular HGB Conc 34.7 g/dL Normal 32.5-35.6 [facility] Comment on above: Performed By: #### B 2 GLYPROT XOCHITL, FACTOR II DNA, HOMOCYS PL, FACV LEIDM, PROCF, LIPA, LUPANTCOAG, PROT S FUN, METH, CARDIO GMA, AT3 DEF PROFILE #### [facility] , #### [id number], CBC, PHOS, BMP, FE PRO, MG #### [address] Monocytes (Bld) [#/Vol] 0.7 10*3/uL Normal 0.0-0.8 [facility] Comment on above: Performed By: #### B 2 GLYPROT XOCHITL, FACTOR II DNA, HOMOCYS PL, FACV LEIDM, PROCF, LIPA, LUPANTCOAG, PROT S FUN, METH, CARDIO GMA, AT3 DEF PROFILE #### [facility] , #### [id number], CBC, PHOS, BMP, FE PRO, MG #### [address] Monocytes/100 WBC (Bld) 5.6 % Normal . [facility] Comment on above: Performed By: #### B 2 GLYPROT XOCHITL, FACTOR II DNA, HOMOCYS PL, FACV LEIDM, PROCF, LIPA, LUPANTCOAG, PROT S FUN, METH, CARDIO GMA, AT3 DEF PROFILE #### [facility] , #### [id number], CBC, PHOS, BMP, FE PRO, MG #### [facility] [address] Neutrophils (Bld) [#/Vol] 10.2 10*3/uL High 1.8-7.7 [facility] Comment on above: Performed By: #### B 2 GLYPROT XOCHITL, FACTOR II DNA, HOMOCYS PL, FACV LEIDM, PROCF, LIPA, LUPANTCOAG, PROT S FUN, METH, CARDIO GMA, AT3 DEF PROFILE #### [facility] , #### [id number], CBC, PHOS, BMP, FE PRO, MG #### [address] Neutrophils/100 WBC (Bld) 82.9 % Normal . [facility] Comment on above: Performed By: #### B 2 GLYPROT XOCHITL, FACTOR II DNA, HOMOCYS PL, FACV LEIDM, PROCF, LIPA, LUPANTCOAG, PROT S FUN, METH, CARDIO GMA, AT3 DEF PROFILE #### [facility] , #### [id number], CBC, PHOS, BMP, FE PRO, MG #### [address] Nucleated RBC/100 WBC (Bld) [Ratio] 0.1 % Normal 0-0.5 [facility] Comment on above: Performed By: #### B 2 GLYPROT XOCHITL, FACTOR II DNA, HOMOCYS PL, FACV LEIDM, PROCF, LIPA, LUPANTCOAG, PROT S FUN, METH, CARDIO GMA, AT3 DEF PROFILE #### [facility] , #### [id number], CBC, PHOS, BMP, FE PRO, MG #### [facility] [address] Platelet mean volume (Bld) [Entitic vol] 10.2 fL High 6.6-10.1 [facility] Comment on above: Performed By: #### B 2 GLYPROT XOCHITL, FACTOR II DNA, HOMOCYS PL, FACV LEIDM, PROCF, LIPA, LUPANTCOAG, PROT S FUN, METH, CARDIO GMA, AT3 DEF PROFILE #### [facility] , #### [id number], CBC, PHOS, BMP, FE PRO, MG #### [facility] [address] [place] [address] Platelets (Bld) [#/Vol] 251 10*3/uL Normal 150-450 [facility] Comment on above: Performed By: #### B 2 GLYPROT XOCHITL, FACTOR II DNA, HOMOCYS PL, FACV LEIDM, PROCF, LIPA, LUPANTCOAG, PROT S FUN, METH, CARDIO GMA, AT3 DEF PROFILE #### [facility] , #### [id number], CBC, PHOS, BMP, FE PRO, MG #### [facility] [address] [place] [address] RBC (Bld) [#/Vol] 4.04 10*6/uL Normal 3.90-5.60 [place] Comment on above: Performed By: #### B 2 GLYPROT XOCHITL, FACTOR II DNA, HOMOCYS PL, FACV LEIDM, PROCF, LIPA, LUPANTCOAG, PROT S FUN, METH, CARDIO GMA, AT3 DEF PROFILE #### [facility] , #### [id number], CBC, PHOS, BMP, FE PRO, MG #### [facility] [address] [place] [address] WBC (Bld) [#/Vol] 12.3 10*3/uL High 4.5-11.0 [place] Comment on above: Performed By: #### B 2 GLYPROT XOCHITL, FACTOR II DNA, HOMOCYS PL, FACV LEIDM, PROCF, LIPA, LUPANTCOAG, PROT S FUN, METH, CARDIO GMA, AT3 DEF PROFILE #### [facility] , #### [id number], CBC, PHOS, BMP, FE PRO, MG #### [facility] [address] [place] [address] Comprehensive Metabolic Pane harmony 09-15-2020 Albumin [Mass/Vol] 2.7 g/dL Low 3.2-5.5 [facility] Comment on above: Performed By: #### B 2 GLYPROT XOCHITL, FACTOR II DNA, HOMOCYS PL, FACV LEIDM, PROCF, LIPA, LUPANTCOAG, PROT S FUN, METH, CARDIO GMA, AT3 DEF PROFILE #### [facility] , #### [id number], CBC, PHOS, BMP, FE PRO, MG #### [address] Albumin/Globulin [Mass ratio] 1.2 {ratio} Normal [facility] Comment on above: Performed By: #### B 2 GLYPROT XOCHITL, FACTOR II DNA, HOMOCYS PL, FACV LEIDM, PROCF, LIPA, LUPANTCOAG, PROT S FUN, METH, CARDIO GMA, AT3 DEF PROFILE #### [facility] , #### [id number], CBC, PHOS, BMP, FE PRO, MG #### [address] ALP [Catalytic activity/Vol] 40 U/L Normal 32-92 [facility] Comment on above: Performed By: #### B 2 GLYPROT XOCHITL, FACTOR II DNA, HOMOCYS PL, FACV LEIDM, PROCF, LIPA, LUPANTCOAG, PROT S FUN, METH, CARDIO GMA, AT3 DEF PROFILE #### [facility] , #### [id number], CBC, PHOS, BMP, FE PRO, MG #### [address] ALT [Catalytic activity/Vol] 86 U/L High 10-60 [facility] Comment on above: Performed By: #### B 2 GLYPROT XOCHITL, FACTOR II DNA, HOMOCYS PL, FACV LEIDM, PROCF, LIPA, LUPANTCOAG, PROT S FUN, METH, CARDIO GMA, AT3 DEF PROFILE #### [facility] , #### [id number], CBC, PHOS, BMP, FE PRO, MG #### [address] AST [Catalytic activity/Vol] 28 U/L Normal 10-42 [facility] Comment on above: Performed By: #### B 2 GLYPROT XOCHITL, FACTOR II DNA, HOMOCYS PL, FACV LEIDM, PROCF, LIPA, LUPANTCOAG, PROT S FUN, METH, CARDIO GMA, AT3 DEF PROFILE #### [facility] , #### [id number], CBC, PHOS, BMP, FE PRO, MG #### [address] Bilirubin [Mass/Vol] 1.1 mg/dL Normal 0.3-1.2 [facility] Comment on above: Performed By: #### B 2 GLYPROT XOCHITL, FACTOR II DNA, HOMOCYS PL, FACV LEIDM, PROCF, LIPA, LUPANTCOAG, PROT S FUN, METH, CARDIO GMA, AT3 DEF PROFILE #### [facility] , #### [id number], CBC, PHOS, BMP, FE PRO, MG #### [address] Calcium [Mass/Vol] 7.6 mg/dL Low 8.2-10.2 [facility] Comment on above: Performed By: #### B 2 GLYPROT XOCHITL, FACTOR II DNA, HOMOCYS PL, FACV LEIDM, PROCF, LIPA, LUPANTCOAG, PROT S FUN, METH, CARDIO GMA, AT3 DEF PROFILE #### [facility] , #### [id number], CBC, PHOS, BMP, FE PRO, MG #### [facility] [address] Chloride [Moles/Vol] 106 mmol/L Normal 95-114 [facility] Comment on above: Performed By: #### B 2 GLYPROT XOCHITL, FACTOR II DNA, HOMOCYS PL, FACV LEIDM, PROCF, LIPA, LUPANTCOAG, PROT S FUN, METH, CARDIO GMA, AT3 DEF PROFILE #### [facility] , #### [id number], CBC, PHOS, BMP, FE PRO, MG #### [address] CO2 [Moles/Vol] 19.7 mmol/L Low 22.0-30.0 [facility] Comment on above: Performed By: #### B 2 GLYPROT XOCHITL, FACTOR II DNA, HOMOCYS PL, FACV LEIDM, PROCF, LIPA, LUPANTCOAG, PROT S FUN, METH, CARDIO GMA, AT3 DEF PROFILE #### [facility] , #### [id number], CBC, PHOS, BMP, FE PRO, MG #### [facility] [address] [place] [address] Creatinine [Mass/Vol] 1.95 mg/dL High 0.64-1.27 [facility] Comment on above: Performed By: #### B 2 GLYPROT XOCHITL, FACTOR II DNA, HOMOCYS PL, FACV LEIDM, PROCF, LIPA, LUPANTCOAG, PROT S FUN, METH, CARDIO GMA, AT3 DEF PROFILE #### [facility] , #### [id number], CBC, PHOS, BMP, FE PRO, MG #### [facility] [address] [place] [address] [place] Creatinine Clr Calc Pharmacy 42.44 Normal [facility] Comment on above: Performed By: #### B 2 GLYPROT XOCHITL, FACTOR II DNA, HOMOCYS PL, FACV LEIDM, PROCF, LIPA, LUPANTCOAG, PROT S FUN, METH, CARDIO GMA, AT3 DEF PROFILE #### [facility] , #### [id number], CBC, PHOS, BMP, FE PRO, MG #### [facility] [address] [place] [address] Estimated GFR ( Gabriela 41 [facility] Comment on above: Result Comment: GFR estimated reference range: According to KDOQI guidelines, <60 ml/min/1.73m2 is sufficient to diagnose a patient with chronic kidney disease. Performed By: #### B 2 GLYPROT XOCHITL, FACTOR II DNA, HOMOCYS PL, FACV LEIDM, PROCF, LIPA, LUPANTCOAG, PROT S FUN, METH, CARDIO GMA, AT3 DEF PROFILE #### [facility] , #### [id number], CBC, PHOS, BMP, FE PRO, MG #### [address] Estimated GFR (Non- Am 34 [facility] Comment on above: Performed By: #### B 2 GLYPROT XOCHITL, FACTOR II DNA, HOMOCYS PL, FACV LEIDM, PROCF, LIPA, LUPANTCOAG, PROT S FUN, METH, CARDIO GMA, AT3 DEF PROFILE #### [facility] , #### [id number], CBC, PHOS, BMP, FE PRO, MG #### [address] Globulin (S) [Mass/Vol] 2.3 g/dL [facility] Comment on above: Performed By: #### B 2 GLYPROT XOCHITL, FACTOR II DNA, HOMOCYS PL, FACV LEIDM, PROCF, LIPA, LUPANTCOAG, PROT S FUN, METH, CARDIO GMA, AT3 DEF PROFILE #### [facility] , #### [id number], CBC, PHOS, BMP, FE PRO, MG #### [address] Glucose [Mass/Vol] 301 mg/dL High 70-100 [facility] Comment on above: Result Comment: [place] Glucose Reference Range is dependent on [...] AT3 DEF PROFILE #### [facility] , #### [id number], CBC, PHOS, BMP, FE PRO, MG #### [facility] [address] Potassium [Moles/Vol] 4.9 mmol/L Normal 3.5-5.1 [facility] Comment on above: Performed By: #### B 2 GLYPROT XOCHITL, FACTOR II DNA, HOMOCYS PL, FACV LEIDM, PROCF, LIPA, LUPANTCOAG, PROT S FUN, METH, CARDIO GMA, AT3 DEF PROFILE #### [facility] , #### [id number], CBC, PHOS, BMP, FE PRO, MG #### [facility] [address] Protein [Mass/Vol] 5.0 g/dL Low 6.1-7.9 [facility] Comment on above: Performed By: #### B 2 GLYPROT XOCHITL, FACTOR II DNA, HOMOCYS PL, FACV LEIDM, PROCF, LIPA, LUPANTCOAG, PROT S FUN, METH, CARDIO GMA, AT3 DEF PROFILE #### [facility] , #### [id number], CBC, PHOS, BMP, FE PRO, MG #### [facility] [address] Sodium [Moles/Vol] 134 mmol/L Low 136-146 [facility] Comment on above: Performed By: #### B 2 GLYPROT XOCHITL, FACTOR II DNA, HOMOCYS PL, FACV LEIDM, PROCF, LIPA, LUPANTCOAG, PROT S FUN, METH, CARDIO GMA, AT3 DEF PROFILE #### [facility] , #### [id number], CBC, PHOS, BMP, FE PRO, MG #### [facility] [address] Urea nitrogen [Mass/Vol] 22 mg/dL Normal 02-08 [facility] Comment on above: Performed By: #### B 2 GLYPROT XOCHITL, FACTOR II DNA, HOMOCYS PL, FACV LEIDM, PROCF, LIPA, LUPANTCOAG, PROT S FUN, METH, CARDIO GMA, AT3 DEF PROFILE #### [facility] , #### [id number], CBC, PHOS, BMP, FE PRO, MG #### [facility] [address] [place] [address] Glucose Poct Glucometerson 0 09-15-2020 Commemt1 Glu2: Cleaned Meter Normal [place] Comment on above: Result Comment: PERF ORMED BY: [place] [address] PATHOLOGIST [employer]ACIA M.D. Performed By: #### B 2 GLYPROT XOCHITL, FACTOR II DNA, HOMOCYS PL, FACV LEIDM, PROCF, LIPA, LUPANTCOAG, PROT S FUN, METH, CARDIO GMA, AT3 DEF PROFILE #### [facility] , #### [id number], CBC, PHOS, BMP, FE PRO, MG #### [facility] [address] [place] [address] Glucose [Mass/Vol] 245 mg/dL Normal [facility] Comment on above: Result Comment: [place] Glucose Reference Range is dependent on time and content of last meal. Glucose of more than 200 mg/dL in a nonstressed, ambulatory subject supports the diagnosis of Diabetes Mellitus. Performed By: #### B 2 GLYPROT XOCHITL, FACTOR II DNA, HOMOCYS PL, FACV LEIDM, PROCF, LIPA, LUPANTCOAG, PROT S FUN, METH, CARDIO GMA, AT3 DEF PROFILE #### [facility] , #### [id number], CBC, PHOS, BMP, FE PRO, MG #### [facility] [address] [place] [address] [place] Glucose [Mass/Vol] 243 mg/dL Normal [facility] Comment on above: Result Comment: [place] om Glucose Reference Range is dependent on time and content of last meal. Glucose of more than 200 mg/dL in a nonstressed, ambulatory subject supports the diagnosis of Diabetes Mellitus. PERFORMED BY: [place] [address] PATHOLOGIST [employer]IA M.D. Performed By: #### B 2 GLYPROT XOCHITL, FACTOR II DNA, HOMOCYS PL, FACV LEIDM, PROCF, LIPA, LUPANTCOAG, PROT S FUN, METH, CARDIO GMA, AT3 DEF PROFILE #### [facility] , #### [id number], CBC, PHOS, BMP, FE PRO, MG #### [place] [address] [place] Glucose [Mass/Vol] 253 mg/dL Normal [facility] [facility] Comment on above: Result Comment: [place] [facility] Glucose Reference Range is dependent on time and content of last meal. Glucose of more than 200 mg/dL in a nonstressed, ambulatory subject supports the diagnosis of Diabetes Mellitus. PERFORMED BY: [place] [address] PATHOLOGIST SUPERVISOR [employer]ACIA M.D. Performed By: #### B 2 GLYPROT XOCHITL, FACTOR II DNA, HOMOCYS PL, FACV LEIDM, PROCF, LIPA, LUPANTCOAG, PROT S FUN, METH, CARDIO GMA, AT3 DEF PROFILE #### [facility] , #### [id number], CBC, PHOS, BMP, FE PRO, MG #### [place] [address] [place] Glucose [Mass/Vol] 299 mg/dL Normal [facility] Comment on above: Result Comment: [place] Glucose Reference Range is dependent on time and content of last meal. Glucose of more than 200 mg/dL in a nonstressed, ambulatory subject supports the diagnosis of Diabetes Mellitus. PERFORMED BY: [place] [address] PATHOLOGIST SUPERVIS[employer] M.D. Performed By: #### B 2 GLYPROT XOCHITL, FACTOR II DNA, HOMOCYS PL, FACV LEIDM, PROCF, LIPA, LUPANTCOAG, PROT S FUN, METH, CARDIO GMA, AT3 DEF PROFILE #### [facility] , #### [id number], CBC, PHOS, BMP, FE PRO, MG #### [facility] [address] [place], [place] [id number] [facility] Glucose [Mass/Vol] 234 mg/dL Normal [facility] Comment on above: Result Comment: [facility] Glucose Reference Range is dependent on time and content of last meal. Glucose of more than 200 mg/dL in a nonstressed, ambulatory subject supports the diagnosis of Diabetes Mellitus. PERFORMED BY: [place] [address] PATHOLOGIST SUPER[employer] M.D. Performed By: #### B 2 GLYPROT XOCHITL, FACTOR II DNA, HOMOCYS PL, FACV LEIDM, PROCF, LIPA, LUPANTCOAG, PROT S FUN, METH, CARDIO GMA, AT3 DEF PROFILE #### [facility] , #### [id number], CBC, PHOS, BMP, FE PRO, MG #### [facility] [address] [place] [address] Lactic Acid Reflexon 09-15-2 021 Lactic Acid Reflex 3.3 mmol/L Off scale high 0.5-2.2 [facility] Comment on above: Result Comment: Crit ical value result called at 2226 on 09/14/20 PERFORMED BY: [place] [address] PATHOLOGIST SUPER[employer] M.D. Performed By: #### B 2 GLYPROT XOCHITL, FACTOR II DNA, HOMOCYS PL, FACV LEIDM, PROCF, LIPA, LUPANTCOAG, PROT S FUN, METH, CARDIO GMA, AT3 DEF PROFILE #### [facility] , #### [id number], CBC, PHOS, BMP, FE PRO, MG #### [facility] [address] Lactoferrin, Stool WBCon Lactoferrin, Stool WBC [...] Amplification Reference range = Negative PERFORMED BY: [place] [address] PATHOLOGIST SUPERVISOR [employer]IA M.D. [facility] Comment on above: Performed By: #### B 2 GLYPROT XOCHITL, FACTOR II DNA, HOMOCYS PL, FACV LEIDM, PROCF, LIPA, LUPANTCOAG, PROT S FUN, METH, CARDIO GMA, AT3 DEF PROFILE #### [facility] , #### [id number], CBC, PHOS, BMP, FE PRO, MG #### [facility] [address] Magnesiumon 09-15-2020 Magnesium [Mass/Vol] 1.5 mg/dL Low 1.6-2.6 [facility] Comment on above: Result Comment: PERF ORMED BY: [place] [address] PATHOLOGIST SUPERVISOR [employer] M.D. Performed By: #### B 2 GLYPROT XOCHITL, FACTOR II DNA, HOMOCYS PL, FACV LEIDM, PROCF, LIPA, LUPANTCOAG, PROT S FUN, METH, CARDIO GMA, AT3 DEF PROFILE #### [facility] , #### [id number], CBC, PHOS, BMP, FE PRO, MG #### [facility] [address] [place] [address] Urinalysison 09-15-2020 Appearance (U) Clear Normal Clear [facility] Comment on above: Order Comment: PT IS NON FASTING Performed By: #### B 2 GLYPROT XOCHITL, FACTOR II DNA, HOMOCYS PL, FACV LEIDM, PROCF, LIPA, LUPANTCOAG, PROT S FUN, METH, CARDIO GMA, AT3 DEF PROFILE #### [facility] , #### [id number], CBC, PHOS, BMP, FE PRO, MG #### [facility] [address] [place] [address] Bilirubin,Urine Negative Normal Negative [facility] Comment on above: Order Comment: PT IS NON FASTING Performed By: #### B 2 GLYPROT XOCHITL, FACTOR II DNA, HOMOCYS PL, FACV LEIDM, PROCF, LIPA, LUPANTCOAG, PROT S FUN, METH, CARDIO GMA, AT3 DEF PROFILE #### [facility] , #### [id number], CBC, PHOS, BMP, FE PRO, MG #### [facility] [address] [place] [address] Color (U) Yellow Normal Yellow [facility] Comment on above: Order Comment: PT IS NON FASTING Performed By: #### B 2 GLYPROT XOCHITL, FACTOR II DNA, HOMOCYS PL, FACV LEIDM, PROCF, LIPA, LUPANTCOAG, PROT S FUN, METH, CARDIO GMA, AT3 DEF PROFILE #### [facility] , #### [id number], CBC, PHOS, BMP, FE PRO, MG #### [facility] [address] [place] [address] Glucose Ql (U) 100 mg/dL High Normal [facility] Comment on above: Order Comment: PT IS NON FASTING Performed By: #### B 2 GLYPROT XOCHITL, FACTOR II DNA, HOMOCYS PL, FACV LEIDM, PROCF, LIPA, LUPANTCOAG, PROT S FUN, METH, CARDIO GMA, AT3 DEF PROFILE #### [facility] , #### [id number], CBC, PHOS, BMP, FE PRO, MG #### [facility] [address] [place] [address] Ketones Ql (U) Trace High Negative [facility] Comment on above: Order Comment: PT IS NON FASTING Performed By: #### B 2 GLYPROT XOCHITL, FACTOR II DNA, HOMOCYS PL, FACV LEIDM, PROCF, LIPA, LUPANTCOAG, PROT S FUN, METH, CARDIO GMA, AT3 DEF PROFILE #### [facility] , #### [id number], CBC, PHOS, BMP, FE PRO, MG #### [address] Leukocyte esterase Test strip Ql (U) Negative Normal Negative [facility] Comment on above: Order Comment: PT IS NON FASTING Performed By: #### B 2 GLYPROT XOCHITL, FACTOR II DNA, HOMOCYS PL, FACV LEIDM, PROCF, LIPA, LUPANTCOAG, PROT S FUN, METH, CARDIO GMA, AT3 DEF PROFILE #### [facility] , #### [id number], CBC, PHOS, BMP, FE PRO, MG #### [facility] [address] [place] [address] Nitrite,Urine Negative Normal Negative [facility] Comment on above: Order Comment: PT IS NON FASTING Performed By: #### B 2 GLYPROT XOCHITL, FACTOR II DNA, HOMOCYS PL, FACV LEIDM, PROCF, LIPA, LUPANTCOAG, PROT S FUN, METH, CARDIO GMA, AT3 DEF PROFILE #### [facility] , #### [id number], CBC, PHOS, BMP, FE PRO, MG #### [address] Occult Blood,Urine Negative Normal Negative [facility] Comment on above: Order Comment: PT IS NON FASTING Result Comment: PERF ORMED BY: [place] [address] PATHOLOGIST SUPER[employer]OR [employer] M.D. Performed By: #### B 2 GLYPROT XOCHITL, FACTOR II DNA, HOMOCYS PL, FACV LEIDM, PROCF, LIPA, LUPANTCOAG, PROT S FUN, METH, CARDIO GMA, AT3 DEF PROFILE #### [facility] , #### [id number], CBC, PHOS, BMP, FE PRO, MG #### [address] pH (U) 5.0 [pH] Normal 5.0-9.0 [facility] Comment on above: Order Comment: PT IS NON FASTING Performed By: #### B 2 GLYPROT XOCHITL, FACTOR II DNA, HOMOCYS PL, FACV LEIDM, PROCF, LIPA, LUPANTCOAG, PROT S FUN, METH, CARDIO GMA, AT3 DEF PROFILE #### [facility] , #### [id number], CBC, PHOS, BMP, FE PRO, MG #### [place] [address] [place] Protein,Urine Negative Normal Negative [facility] Comment on above: Order Comment: PT IS NON FASTING Performed By: #### B 2 GLYPROT XOCHITL, FACTOR II DNA, HOMOCYS PL, FACV LEIDM, PROCF, LIPA, LUPANTCOAG, PROT S FUN, METH, CARDIO GMA, AT3 DEF PROFILE #### [facility] , #### [id number], CBC, PHOS, BMP, FE PRO, MG #### [address] Specificy [place],Urine 1.018 Normal 1.001-1.030 [facility] Comment on above: Order Comment: PT IS NON FASTING Performed By: #### B 2 GLYPROT XOCHITL, FACTOR II DNA, HOMOCYS PL, FACV LEIDM, PROCF, LIPA, LUPANTCOAG, PROT S FUN, METH, CARDIO GMA, AT3 DEF PROFILE #### [facility] , #### [id number], CBC, PHOS, BMP, FE PRO, MG #### [address] Urobilinogen,Urin e Normal Normal Normal [facility] Comment on above: Order Comment: PT IS NON FASTING Performed By: #### B 2 GLYPROT XOCHITL, FACTOR II DNA, HOMOCYS PL, FACV LEIDM, PROCF, LIPA, LUPANTCOAG, PROT S FUN, METH, CARDIO GMA, AT3 DEF PROFILE #### [facility] , #### [id number], CBC, PHOS, BMP, FE PRO, MG #### [address] Basic Metabolic Panelon 04-2 Calcium [Mass/Vol] 8.5 mg/dL Normal 8.2-10.2 [facility] Comment on above: Performed By: #### B 2 GLYPROT XOCHITL, FACTOR II DNA, HOMOCYS PL, FACV LEIDM, PROCF, LIPA, LUPANTCOAG, PROT S FUN, METH, CARDIO GMA, AT3 DEF PROFILE #### [facility] , #### [id number], CBC, PHOS, BMP, FE PRO, MG #### [facility] [address] [place] [address] Chloride [Moles/Vol] 99 mmol/L Normal 95-114 [facility] Comment on above: Performed By: #### B 2 GLYPROT XOCHITL, FACTOR II DNA, HOMOCYS PL, FACV LEIDM, PROCF, LIPA, LUPANTCOAG, PROT S FUN, METH, CARDIO GMA, AT3 DEF PROFILE #### [facility] , #### [id number], CBC, PHOS, BMP, FE PRO, MG #### [address] CO2 [Moles/Vol] 22.9 mmol/L Normal 22.0-30.0 [facility] Comment on above: Performed By: #### B 2 GLYPROT XOCHITL, FACTOR II DNA, HOMOCYS PL, FACV LEIDM, PROCF, LIPA, LUPANTCOAG, PROT S FUN, METH, CARDIO GMA, AT3 DEF PROFILE #### [facility] , #### [id number], CBC, PHOS, BMP, FE PRO, MG #### [address] Creatinine [Mass/Vol] 2.82 mg/dL High 0.64-1.27 [facility] Comment on above: Performed By: #### B 2 GLYPROT XOCHITL, FACTOR II DNA, HOMOCYS PL, FACV LEIDM, PROCF, LIPA, LUPANTCOAG, PROT S FUN, METH, CARDIO GMA, AT3 DEF PROFILE #### [facility] , #### [id number], CBC, PHOS, BMP, FE PRO, MG #### [address] Creatinine Clr Calc Pharmacy 28.93 [facility] Comment on above: Performed By: #### B 2 GLYPROT XOCHITL, FACTOR II DNA, HOMOCYS PL, FACV LEIDM, PROCF, LIPA, LUPANTCOAG, PROT S FUN, METH, CARDIO GMA, AT3 DEF PROFILE #### [facility] , #### [id number], CBC, PHOS, BMP, FE PRO, MG #### [address] Estimated GFR ( Gabriela 27 [facility] Comment on above: Result Comment: GFR estimated reference range: According to KDOQI guidelines, <60 ml/min/1.73m2 is sufficient to diagnose a patient with chronic kidney disease. Performed By: #### B 2 GLYPROT XOCHITL, FACTOR II DNA, HOMOCYS PL, FACV LEIDM, PROCF, LIPA, LUPANTCOAG, PROT S FUN, METH, CARDIO GMA, AT3 DEF PROFILE #### [facility] , #### [id number], CBC, PHOS, BMP, FE PRO, MG #### [facility] [address] Estimated GFR (Non- Am 22 Normal [facility] Comment on above: Performed By: #### B 2 GLYPROT XOCHITL, FACTOR II DNA, HOMOCYS PL, FACV LEIDM, PROCF, LIPA, LUPANTCOAG, PROT S FUN, METH, CARDIO GMA, AT3 DEF PROFILE #### [facility] , #### [id number], CBC, PHOS, BMP, FE PRO, MG #### [facility] [address] Glucose [Mass/Vol] 388 mg/dL High 70-100 [facility] Comment on above: Result Comment: [facility] Glucose Reference Range is dependent on time and content of last meal. Glucose of more than 200 mg/dL in a nonstressed, ambulatory subject supports the diagnosis of Diabetes Mellitus. ADA recommended reference range Performed By: #### B 2 GLYPROT XOCHITL, FACTOR II DNA, HOMOCYS PL, FACV LEIDM, PROCF, LIPA, LUPANTCOAG, PROT S FUN, METH, CARDIO GMA, AT3 DEF PROFILE #### [facility] , #### [id number], CBC, PHOS, BMP, FE PRO, MG #### [facility] [address] [place] [address] [place] Potassium [Moles/Vol] 4.7 mmol/L Normal 3.5-5.1 [facility] Comment on above: Performed By: #### B 2 GLYPROT XOCHITL, FACTOR II DNA, HOMOCYS PL, FACV LEIDM, PROCF, LIPA, LUPANTCOAG, PROT S FUN, METH, CARDIO GMA, AT3 DEF PROFILE #### [facility] , #### [id number], CBC, PHOS, BMP, FE PRO, MG #### [facility] [address] [place] [address] Sodium [Moles/Vol] 131 mmol/L Low 136-146 [facility] Comment on above: Performed By: #### B 2 GLYPROT XOCHITL, FACTOR II DNA, HOMOCYS PL, FACV LEIDM, PROCF, LIPA, LUPANTCOAG, PROT S FUN, METH, CARDIO GMA, AT3 DEF PROFILE #### [facility] , #### [id number], CBC, PHOS, BMP, FE PRO, MG #### [facility] [address] [place] [address] Urea nitrogen [Mass/Vol] 25 mg/dL High 9-23 [facility] Comment on above: Performed By: #### B 2 GLYPROT XOCHITL, FACTOR II DNA, HOMOCYS PL, FACV LEIDM, PROCF, LIPA, LUPANTCOAG, PROT S FUN, METH, CARDIO GMA, AT3 DEF PROFILE #### [facility] , #### [id number], CBC, PHOS, BMP, FE PRO, MG #### [facility] [address] [place] [address] COVID-19 Antigenon 1 COVID-19 Antigen Healthcare Worker?: N Kate Reference Kate Reference Negative SARS-CoV+SARS-CoV-2 (COVID-19) Ag [Presence] in Respiratory specimen by Rapid immunoassay Negative for SARS Antigen by ADORE COVID19 Blank Space Kate Disclaimer Negative results, from patients with symptom Kate Disclaimer onset beyond five days, should be treated as Kate Disclaimer presumptive and confirmation with a molecular Akte Disclaimer assay, if necessary, for patient management, [...] its performance Kate Disclaimer characteristic determined by Rezdy and Kate Disclaimer validated at [facility] [...] is terminated or revoked sooner. PERFORMED BY: [place] [id number] PATHOLOGIST SU[employer] M.D. Normal [facility] Comment on above: Performed By: #### B 2 GLYPROT XOCHITL, FACTOR II DNA, HOMOCYS PL, FACV LEIDM, PROCF, LIPA, LUPANTCOAG, PROT S FUN, METH, CARDIO GMA, AT3 DEF PROFILE #### [facility] , #### [id number], CBC, PHOS, BMP, FE PRO, MG #### [facility] [address] [place] [address] COVID-19 [facility] 09-14-2020 SARS-CoV-2 (COVID-19) RNA MOLLY+probe Ql (Unsp spec) Negative Normal Negative [facility] Comment on above: Order Comment: PT IS NON FASTING Result Comment: Test ing for SARS-CoV-2 by RT-PCR This test was developed and its performance characteristics determined by [email or web address] and validated at the [facility]. [...] terminated or revoked sooner. PERFORMED BY: [place] [address] PATHOLOGIST SUPER[employer] M.D. Performed By: #### B 2 GLYPROT XOCHITL, FACTOR II DNA, HOMOCYS PL, FACV LEIDM, PROCF, LIPA, LUPANTCOAG, PROT S FUN, METH, CARDIO GMA, AT3 DEF PROFILE #### [facility] , #### [id number], CBC, PHOS, BMP, FE PRO, MG #### [address] Complete Blood Count Auto Di ffon 09-14-2020 Basophils (Bld) [#/Vol] 0.1 10*3/uL Normal 0.0-0.2 [facility] Comment on above: Result Comment: PERF ORMED BY: [place] [address] PATHOLOGIST SUPER[employer] M.D. Performed By: #### B 2 GLYPROT XOCHITL, FACTOR II DNA, HOMOCYS PL, FACV LEIDM, PROCF, LIPA, LUPANTCOAG, PROT S FUN, METH, CARDIO GMA, AT3 DEF PROFILE #### [facility] , #### [id number], CBC, PHOS, BMP, FE PRO, MG #### [address] Basophils/100 WBC (Bld) 1.1 % Normal . [facility] Comment on above: Performed By: #### B 2 GLYPROT XOCHITL, FACTOR II DNA, HOMOCYS PL, FACV LEIDM, PROCF, LIPA, LUPANTCOAG, PROT S FUN, METH, CARDIO GMA, AT3 DEF PROFILE #### [facility] , #### [id number], CBC, PHOS, BMP, FE PRO, MG #### [place] [address] [place] Eosinophils (Bld) [#/Vol] 0.4 10*3/uL Normal 0.0-0.45 [facility] Comment on above: Performed By: #### B 2 GLYPROT XOCHITL, FACTOR II DNA, HOMOCYS PL, FACV LEIDM, PROCF, LIPA, LUPANTCOAG, PROT S FUN, METH, CARDIO GMA, AT3 DEF PROFILE #### [facility] , #### [id number], CBC, PHOS, BMP, FE PRO, MG #### [address] Eosinophils/100 WBC (Bld) 3.2 % Normal . [facility] Comment on above: Performed By: #### B 2 GLYPROT XOCHITL, FACTOR II DNA, HOMOCYS PL, FACV LEIDM, PROCF, LIPA, LUPANTCOAG, PROT S FUN, METH, CARDIO GMA, AT3 DEF PROFILE #### [facility] , #### [id number], CBC, PHOS, BMP, FE PRO, MG #### [address] Erythrocyte distribution width (RBC) [Ratio] 13.5 % Normal 12.0-14.8 [facility] Comment on above: Performed By: #### B 2 GLYPROT XOCHITL, FACTOR II DNA, HOMOCYS PL, FACV LEIDM, PROCF, LIPA, LUPANTCOAG, PROT S FUN, METH, CARDIO GMA, AT3 DEF PROFILE #### [facility] , #### [id number], CBC, PHOS, BMP, FE PRO, MG #### [address] Hematocrit (Bld) [Volume fraction] 44.2 % Normal 38.8-50.0 [facility] Comment on above: Performed By: #### B 2 GLYPROT XOCHITL, FACTOR II DNA, HOMOCYS PL, FACV LEIDM, PROCF, LIPA, LUPANTCOAG, PROT S FUN, METH, CARDIO GMA, AT3 DEF PROFILE #### [facility] , #### [id number], CBC, PHOS, BMP, FE PRO, MG #### [address] Hemoglobin (Bld) [Mass/Vol] 15.1 g/dL Normal 13.0-17.0 [facility] Comment on above: Performed By: #### B 2 GLYPROT XOCHITL, FACTOR II DNA, HOMOCYS PL, FACV LEIDM, PROCF, LIPA, LUPANTCOAG, PROT S FUN, METH, CARDIO GMA, AT3 DEF PROFILE #### [facility] , #### [id number], CBC, PHOS, BMP, FE PRO, MG #### [address] Lymphocytes (Bld) [#/Vol] 2.2 10*3/uL Normal 1.00-4.8 [facility] Comment on above: Performed By: #### B 2 GLYPROT XOCHITL, FACTOR II DNA, HOMOCYS PL, FACV LEIDM, PROCF, LIPA, LUPANTCOAG, PROT S FUN, METH, CARDIO GMA, AT3 DEF PROFILE #### [facility] , #### [id number], CBC, PHOS, BMP, FE PRO, MG #### [address] Lymphocytes/100 WBC (Bld) 19.4 % Normal . [facility] Comment on above: Performed By: #### B 2 GLYPROT XOCHITL, FACTOR II DNA, HOMOCYS PL, FACV LEIDM, PROCF, LIPA, LUPANTCOAG, PROT S FUN, METH, CARDIO GMA, AT3 DEF PROFILE #### [facility] , #### [id number], CBC, PHOS, BMP, FE PRO, MG #### [address] MCH (RBC) [Entitic mass] 31.5 pg Normal 27.5-35.2 [facility] Comment on above: Performed By: #### B 2 GLYPROT XOCHITL, FACTOR II DNA, HOMOCYS PL, FACV LEIDM, PROCF, LIPA, LUPANTCOAG, PROT S FUN, METH, CARDIO GMA, AT3 DEF PROFILE #### [facility] , #### [id number], CBC, PHOS, BMP, FE PRO, MG #### [address] MCV (RBC) [Entitic vol] 91.9 fL Normal 83.5-101 [facility] Comment on above: Performed By: #### B 2 GLYPROT XOCHITL, FACTOR II DNA, HOMOCYS PL, FACV LEIDM, PROCF, LIPA, LUPANTCOAG, PROT S FUN, METH, CARDIO GMA, AT3 DEF PROFILE #### [facility] , #### [id number], CBC, PHOS, BMP, FE PRO, MG #### [address] Mean Corpuscular HGB Conc 34.3 g/dL Normal 32.5-35.6 [facility] Comment on above: Performed By: #### B 2 GLYPROT XOCHITL, FACTOR II DNA, HOMOCYS PL, FACV LEIDM, PROCF, LIPA, LUPANTCOAG, PROT S FUN, METH, CARDIO GMA, AT3 DEF PROFILE #### [facility] , #### [id number], CBC, PHOS, BMP, FE PRO, MG #### [address] Monocytes (Bld) [#/Vol] 1.3 10*3/uL High 0.0-0.8 [facility] Comment on above: Performed By: #### B 2 GLYPROT XOCHITL, FACTOR II DNA, HOMOCYS PL, FACV LEIDM, PROCF, LIPA, LUPANTCOAG, PROT S FUN, METH, CARDIO GMA, AT3 DEF PROFILE #### [facility] , #### [id number], CBC, PHOS, BMP, FE PRO, MG #### [address] Monocytes/100 WBC (Bld) 11.2 % Normal . [facility] Comment on above: Performed By: #### B 2 GLYPROT XOCHITL, FACTOR II DNA, HOMOCYS PL, FACV LEIDM, PROCF, LIPA, LUPANTCOAG, PROT S FUN, METH, CARDIO GMA, AT3 DEF PROFILE #### [facility] , #### [id number], CBC, PHOS, BMP, FE PRO, MG #### [address] Neutrophils (Bld) [#/Vol] 7.4 10*3/uL Normal 1.8-7.7 [facility] Comment on above: Performed By: #### B 2 GLYPROT XOCHITL, FACTOR II DNA, HOMOCYS PL, FACV LEIDM, PROCF, LIPA, LUPANTCOAG, PROT S FUN, METH, CARDIO GMA, AT3 DEF PROFILE #### [facility] , #### [id number], CBC, PHOS, BMP, FE PRO, MG #### [address] Neutrophils/100 WBC (Bld) 65.1 % Normal . [facility] Comment on above: Performed By: #### B 2 GLYPROT XOCHITL, FACTOR II DNA, HOMOCYS PL, FACV LEIDM, PROCF, LIPA, LUPANTCOAG, PROT S FUN, METH, CARDIO GMA, AT3 DEF PROFILE #### [facility] , #### [id number], CBC, PHOS, BMP, FE PRO, MG #### [address] Nucleated RBC/100 WBC (Bld) [Ratio] 0.2 % Normal 0-0.5 [facility] Comment on above: Performed By: #### B 2 GLYPROT XOCHITL, FACTOR II DNA, HOMOCYS PL, FACV LEIDM, PROCF, LIPA, LUPANTCOAG, PROT S FUN, METH, CARDIO GMA, AT3 DEF PROFILE #### [facility] , #### [id number], CBC, PHOS, BMP, FE PRO, MG #### [address] [place] [address] [place] Platelet mean volume (Bld) [Entitic vol] 10.3 fL High 6.6-10.1 [facility] Comment on above: Performed By: #### B 2 GLYPROT XOCHITL, FACTOR II DNA, HOMOCYS PL, FACV LEIDM, PROCF, LIPA, LUPANTCOAG, PROT S FUN, METH, CARDIO GMA, AT3 DEF PROFILE #### [facility] , #### [id number], CBC, PHOS, BMP, FE PRO, MG #### [facility] [address] Platelets (Bld) [#/Vol] 314 10*3/uL Normal 150-450 [facility] Comment on above: Performed By: #### B 2 GLYPROT XOCHITL, FACTOR II DNA, HOMOCYS PL, FACV LEIDM, PROCF, LIPA, LUPANTCOAG, PROT S FUN, METH, CARDIO GMA, AT3 DEF PROFILE #### [facility] , #### [id number], CBC, PHOS, BMP, FE PRO, MG #### [facility] [address] [place] [address] RBC (Bld) [#/Vol] 4.81 10*6/uL Normal 3.90-5.60 [place] Comment on above: Performed By: #### B 2 GLYPROT XOCHITL, FACTOR II DNA, HOMOCYS PL, FACV LEIDM, PROCF, LIPA, LUPANTCOAG, PROT S FUN, METH, CARDIO GMA, AT3 DEF PROFILE #### [facility] , #### [id number], CBC, PHOS, BMP, FE PRO, MG #### [facility] [address] [place] [address] WBC (Bld) [#/Vol] 11.4 10*3/uL High 4.5-11.0 [place] Comment on above: Performed By: #### B 2 GLYPROT XOCHITL, FACTOR II DNA, HOMOCYS PL, FACV LEIDM, PROCF, LIPA, LUPANTCOAG, PROT S FUN, METH, CARDIO GMA, AT3 DEF PROFILE #### [facility] , #### [id number], CBC, PHOS, BMP, FE PRO, MG #### [address] Cortisolon 09-14-2020 Cortisol 5.9 ug/dL Normal [facility] Comment on above: Result Comment: Refe rence range: AM 6 - 24 ug/dl PM <10 ug/dl PERFORMED BY: [place] [address] PATHOLOGIST SUPER[employer]ACIA M.D. Performed By: #### B 2 GLYPROT XOCHITL, FACTOR II DNA, HOMOCYS PL, FACV LEIDM, PROCF, LIPA, LUPANTCOAG, PROT S FUN, METH, CARDIO GMA, AT3 DEF PROFILE #### [facility] , #### [id number], CBC, PHOS, BMP, FE PRO, MG #### [address] ECG 12 lead ECGon 09-14-2020 ECG 12 lead ECG [facility] [place] [address] Electrocardiograph Report Signed Patient: Don Elkins MR#: [id number] : 1950 Acct:[id number] Age/Sex: 70 / M ADM Date: 09/14/20 Loc: Room: [address] [place] [address] Type: ADM IN Attending Dr: Carloz Roe [...] Inferior leads Confirmed by Nando Sandoval DO ([id number]) on 09/15/2020 10:03:14 AM Referred By: Electronically Signed By:Nando Sandoval DO Transcribed By: MUS Dictated By: Nando Sandoval DO 09/14/20 6427 Signed By: 09/15/20 1003 Normal [facility] Hepatic Panelon 09-14-2020 Albumin [Mass/Vol] 3.2 g/dL Normal 3.2-5.5 [facility] Comment on above: Performed By: #### B 2 GLYPROT XOCHITL, FACTOR II DNA, HOMOCYS PL, FACV LEIDM, PROCF, LIPA, LUPANTCOAG, PROT S FUN, METH, CARDIO GMA, AT3 DEF PROFILE #### [facility] , #### [id number], CBC, PHOS, BMP, FE PRO, MG #### [facility] [address] Albumin/Globulin [Mass ratio] 1.1 {ratio} [facility] Comment on above: Performed By: #### B 2 GLYPROT XOCHITL, FACTOR II DNA, HOMOCYS PL, FACV LEIDM, PROCF, LIPA, LUPANTCOAG, PROT S FUN, METH, CARDIO GMA, AT3 DEF PROFILE #### [facility] , #### [id number], CBC, PHOS, BMP, FE PRO, MG #### [facility] [address] ALP [Catalytic activity/Vol] 48 U/L Normal 32-92 [facility] Comment on above: Performed By: #### B 2 GLYPROT XOCHITL, FACTOR II DNA, HOMOCYS PL, FACV LEIDM, PROCF, LIPA, LUPANTCOAG, PROT S FUN, METH, CARDIO GMA, AT3 DEF PROFILE #### [facility] , #### [id number], CBC, PHOS, BMP, FE PRO, MG #### [facility] [address] [place] [id number] ALT [Catalytic activity/Vol] 111 U/L High 10-60 [facility] Comment on above: Performed By: #### B 2 GLYPROT XOCHITL, FACTOR II DNA, HOMOCYS PL, FACV LEIDM, PROCF, LIPA, LUPANTCOAG, PROT S FUN, METH, CARDIO GMA, AT3 DEF PROFILE #### [facility] , #### [id number], CBC, PHOS, BMP, FE PRO, MG #### [address] AST [Catalytic activity/Vol] 41 U/L Normal [facility] Comment on above: Performed By: #### B 2 GLYPROT XOCHITL, FACTOR II DNA, HOMOCYS PL, FACV LEIDM, PROCF, LIPA, LUPANTCOAG, PROT S FUN, METH, CARDIO GMA, AT3 DEF PROFILE #### [facility] , #### [id number], CBC, PHOS, BMP, FE PRO, MG #### [address] Bilirubin [Mass/Vol] 1.2 mg/dL Normal 0.3-1.2 [facility] Comment on above: Performed By: #### B 2 GLYPROT XOCHITL, FACTOR II DNA, HOMOCYS PL, FACV LEIDM, PROCF, LIPA, LUPANTCOAG, PROT S FUN, METH, CARDIO GMA, AT3 DEF PROFILE #### [facility] , #### [id number], CBC, PHOS, BMP, FE PRO, MG #### [address] Bilirubin,Indirec t 1.0 mg/dL Normal [facility] Comment on above: Performed By: #### B 2 GLYPROT XOCHITL, FACTOR II DNA, HOMOCYS PL, FACV LEIDM, PROCF, LIPA, LUPANTCOAG, PROT S FUN, METH, CARDIO GMA, AT3 DEF PROFILE #### [facility] , #### [id number], CBC, PHOS, BMP, FE PRO, MG #### [facility] [address] [place] [address] Bilirubin.indirec t [Mass/Vol] 0.2 mg/dL Normal 0.0-0.4 [facility] Comment on above: Performed By: #### B 2 GLYPROT XOCHITL, FACTOR II DNA, HOMOCYS PL, FACV LEIDM, PROCF, LIPA, LUPANTCOAG, PROT S FUN, METH, CARDIO GMA, AT3 DEF PROFILE #### [facility] , #### [id number], CBC, PHOS, BMP, FE PRO, MG #### [address] Globulin (S) [Mass/Vol] 2.9 g/dL Normal [facility] Comment on above: Performed By: #### B 2 GLYPROT XOCHITL, FACTOR II DNA, HOMOCYS PL, FACV LEIDM, PROCF, LIPA, LUPANTCOAG, PROT S FUN, METH, CARDIO GMA, AT3 DEF PROFILE #### [facility] , #### [id number], CBC, PHOS, BMP, FE PRO, MG #### [address] Protein [Mass/Vol] 6.1 g/dL Normal 6.1-7.9 [facility] Comment on above: Performed By: #### B 2 GLYPROT XOCHITL, FACTOR II DNA, HOMOCYS PL, FACV LEIDM, PROCF, LIPA, LUPANTCOAG, PROT S FUN, METH, CARDIO GMA, AT3 DEF PROFILE #### [facility] , #### [id number], CBC, PHOS, BMP, FE PRO, MG #### [address] Lactic Acidon 09-14-2020 Lactate [Moles/Vol] 2.5 mmol/L Off scale high 0.5-2.2 [facility] Comment on above: Result Comment: Crit ical value result called at 1847 on 09/14/20 PERFORMED BY: [place] [address] PATHOLOGIST [employer]ACIA M.D. Performed By: #### B 2 GLYPROT XOCHITL, FACTOR II DNA, HOMOCYS PL, FACV LEIDM, PROCF, LIPA, LUPANTCOAG, PROT S FUN, METH, CARDIO GMA, AT3 DEF PROFILE #### [facility] , #### [id number], CBC, PHOS, BMP, FE PRO, MG #### [facility] [address] [place], [place] [id number] [facility] Lipaseon 09-14-2020 Lipase [Catalytic activity/Vol] 145.0 U/L High 22- [facility] Comment on above: Result Comment: PERF ORMED BY: [place] [address] PATHOLOGIST [employer] M.D. Performed By: #### B 2 GLYPROT XOCHITL, FACTOR II DNA, HOMOCYS PL, FACV LEIDM, PROCF, LIPA, LUPANTCOAG, PROT S FUN, METH, CARDIO GMA, AT3 DEF PROFILE #### [facility] , #### [id number], CBC, PHOS, BMP, FE PRO, MG #### [facility] [address] [place], [place] [id number] [facility] Magnesiumon 09-14-2020 Magnesium [Mass/Vol] 1.7 mg/dL Normal 1.6-2.6 [facility] Comment on above: Performed By: #### B 2 GLYPROT XOCHITL, FACTOR II DNA, HOMOCYS PL, FACV LEIDM, PROCF, LIPA, LUPANTCOAG, PROT S FUN, METH, CARDIO GMA, AT3 DEF PROFILE #### [facility] , #### [id number], CBC, PHOS, BMP, FE PRO, MG #### [facility] [address] [place] [id number] [facility] Kate Ag Negativeon 04-29-20 21 Kate Ag Negative Negative Normal Negative [facility] Comment on above: Result Comment: This is a duplicate Kate SARS Antigen (ADORE) result to be used for statistical tracking purpose only. PERFORMED BY: [place] [address] PATHOLOGIST [employer]IA M.D. Performed By: #### B 2 GLYPROT XOCHITL, FACTOR II DNA, HOMOCYS PL, FACV LEIDM, PROCF, LIPA, LUPANTCOAG, PROT S FUN, METH, CARDIO GMA, AT3 DEF PROFILE #### [facility] , #### [id number], CBC, PHOS, BMP, FE PRO, MG #### [facility] [address] [place] [address] Basic Metabolic Panelon 08-18 Calcium [Mass/Vol] 9.3 mg/dL Normal 8.2-10.2 [facility] Comment on above: Performed By: #### B 2 GLYPROT XOCHITL, FACTOR II DNA, HOMOCYS PL, FACV LEIDM, PROCF, LIPA, LUPANTCOAG, PROT S FUN, METH, CARDIO GMA, AT3 DEF PROFILE #### [facility] , #### [id number], CBC, PHOS, BMP, FE PRO, MG #### [facility] [address] [place] [address] Chloride [Moles/Vol] 98 mmol/L Normal 95-114 [facility] Comment on above: Performed By: #### B 2 GLYPROT XOCHITL, FACTOR II DNA, HOMOCYS PL, FACV LEIDM, PROCF, LIPA, LUPANTCOAG, PROT S FUN, METH, CARDIO GMA, AT3 DEF PROFILE #### [facility] , #### [id number], CBC, PHOS, BMP, FE PRO, MG #### [facility] [address] [place] [address] CO2 [Moles/Vol] 24.1 mmol/L Normal 22.0-30.0 [facility] Comment on above: Performed By: #### B 2 GLYPROT XOCHITL, FACTOR II DNA, HOMOCYS PL, FACV LEIDM, PROCF, LIPA, LUPANTCOAG, PROT S FUN, METH, CARDIO GMA, AT3 DEF PROFILE #### [facility] , #### [id number], CBC, PHOS, BMP, FE PRO, MG #### [address] Creatinine [Mass/Vol] 1.53 mg/dL High 0.64-1.27 [facility] Comment on above: Performed By: #### B 2 GLYPROT XOCHITL, FACTOR II DNA, HOMOCYS PL, FACV LEIDM, PROCF, LIPA, LUPANTCOAG, PROT S FUN, METH, CARDIO GMA, AT3 DEF PROFILE #### [facility] , #### [id number], CBC, PHOS, BMP, FE PRO, MG #### [address] Creatinine Clr Calc Pharmacy 54.38 [facility] Comment on above: Performed By: #### B 2 GLYPROT XOCHITL, FACTOR II DNA, HOMOCYS PL, FACV LEIDM, PROCF, LIPA, LUPANTCOAG, PROT S FUN, METH, CARDIO GMA, AT3 DEF PROFILE #### [facility] , #### [id number], CBC, PHOS, BMP, FE PRO, MG #### [address] Estimated GFR ( Gabriela 55 [facility] Comment on above: Result Comment: GFR estimated reference range: According to KDOQI guidelines, <60 ml/min/1.73m2 is sufficient to diagnose a patient with chronic kidney disease. Performed By: #### B 2 GLYPROT XOCHITL, FACTOR II DNA, HOMOCYS PL, FACV LEIDM, PROCF, LIPA, LUPANTCOAG, PROT S FUN, METH, CARDIO GMA, AT3 DEF PROFILE #### [facility] , #### [id number], CBC, PHOS, BMP, FE PRO, MG #### [facility] [address] Estimated GFR (Non- Am 45 Normal [facility] Comment on above: Performed By: #### B 2 GLYPROT XOCHITL, FACTOR II DNA, HOMOCYS PL, FACV LEIDM, PROCF, LIPA, LUPANTCOAG, PROT S FUN, METH, CARDIO GMA, AT3 DEF PROFILE #### [facility] , #### [id number], CBC, PHOS, BMP, FE PRO, MG #### [facility] [address] Glucose [Mass/Vol] 200 mg/dL High 70-100 [facility] Comment on above: Result Comment: [facility] Glucose Reference Range is dependent on time and content of last meal. Glucose of more than 200 mg/dL in a nonstressed, ambulatory subject supports the diagnosis of Diabetes Mellitus. ADA recommended reference range Performed By: #### B 2 GLYPROT XOCHITL, FACTOR II DNA, HOMOCYS PL, FACV LEIDM, PROCF, LIPA, LUPANTCOAG, PROT S FUN, METH, CARDIO GMA, AT3 DEF PROFILE #### [facility] , #### [id number], CBC, PHOS, BMP, FE PRO, MG #### [facility] [address] Potassium [Moles/Vol] 4.4 mmol/L Normal 3.5-5.1 [facility] Comment on above: Performed By: #### B 2 GLYPROT XOCHITL, FACTOR II DNA, HOMOCYS PL, FACV LEIDM, PROCF, LIPA, LUPANTCOAG, PROT S FUN, METH, CARDIO GMA, AT3 DEF PROFILE #### [facility] , #### [id number], CBC, PHOS, BMP, FE PRO, MG #### [facility] [address] Sodium [Moles/Vol] 135 mmol/L Low 136-146 [facility] Comment on above: Performed By: #### B 2 GLYPROT XOCHITL, FACTOR II DNA, HOMOCYS PL, FACV LEIDM, PROCF, LIPA, LUPANTCOAG, PROT S FUN, METH, CARDIO GMA, AT3 DEF PROFILE #### [facility] , #### [id number], CBC, PHOS, BMP, FE PRO, MG #### [facility] [address] Urea nitrogen [Mass/Vol] 16 mg/dL Normal 9-23 [facility] Comment on above: Performed By: #### B 2 GLYPROT XOCHITL, FACTOR II DNA, HOMOCYS PL, FACV LEIDM, PROCF, LIPA, LUPANTCOAG, PROT S FUN, METH, CARDIO GMA, AT3 DEF PROFILE #### [facility] , #### [id number], CBC, PHOS, BMP, FE PRO, MG #### [facility] [address] COVID-19 Antigenon 1 COVID-19 Antigen Healthcare [...] its performance Kate Disclaimer characteristic determined by Rezdy and Kate Disclaimer validated at [facility] [...] is terminated or revoked sooner. PERFORMED BY: [facility] [place] [address] PATHOLOGIST [employer] M.D. [facility] Comment on above: Performed By: #### B 2 GLYPROT XOCHITL, FACTOR II DNA, HOMOCYS PL, FACV LEIDM, PROCF, LIPA, LUPANTCOAG, PROT S FUN, METH, CARDIO GMA, AT3 DEF PROFILE #### [facility] , #### [id number], CBC, PHOS, BMP, FE PRO, MG #### [facility] [address] abdomen pelvis w conon CT abdomen pelvis w con [facility] [address] [place] [address] CT Scan Report Signed Patient: Don Elkins MR#: [id number] : 1950 Acct:[id number] Age/Sex: 70 / M ADM Date: 09/11/20 Loc: ER Room: Type: [facility] ER Attending Dr: Ordering Provider: Michele Gamino [...] Corbin Gaxiola M.D.09/11/2020 7:25 PM Dictation Location: [place] [address] Transcribed By: [facility] 09/11/201924 Dictated By: Corbin Gaxiola MD 09/11/201910 Signed By: 09/11/201924 Normal [facility] Complete Blood Count Auto Di ffon 09-11-2020 Basophils (Bld) [#/Vol] 0.1 10*3/uL Normal 0.0-0.2 [facility] Comment on above: Result Comment: PERF ORMED BY: [place] [address] PATHOLOGIST SU[employer] M.D. Performed By: #### B 2 GLYPROT XOCHITL, FACTOR II DNA, HOMOCYS PL, FACV LEIDM, PROCF, LIPA, LUPANTCOAG, PROT S FUN, METH, CARDIO GMA, AT3 DEF PROFILE #### [facility] , #### [id number], CBC, PHOS, BMP, FE PRO, MG #### [address] Basophils/100 WBC (Bld) 1.2 % Normal . [facility] Comment on above: Performed By: #### B 2 GLYPROT XOCHITL, FACTOR II DNA, HOMOCYS PL, FACV LEIDM, PROCF, LIPA, LUPANTCOAG, PROT S FUN, METH, CARDIO GMA, AT3 DEF PROFILE #### [facility] , #### [id number], CBC, PHOS, BMP, FE PRO, MG #### [address] Eosinophils (Bld) [#/Vol] 0.3 10*3/uL Normal 0.0-0.45 [facility] Comment on above: Performed By: #### B 2 GLYPROT XOCHITL, FACTOR II DNA, HOMOCYS PL, FACV LEIDM, PROCF, LIPA, LUPANTCOAG, PROT S FUN, METH, CARDIO GMA, AT3 DEF PROFILE #### [facility] , #### [id number], CBC, PHOS, BMP, FE PRO, MG #### [address] Eosinophils/100 WBC (Bld) 4.0 % Normal . [facility] Comment on above: Performed By: #### B 2 GLYPROT XOCHITL, FACTOR II DNA, HOMOCYS PL, FACV LEIDM, PROCF, LIPA, LUPANTCOAG, PROT S FUN, METH, CARDIO GMA, AT3 DEF PROFILE #### [facility] , #### [id number], CBC, PHOS, BMP, FE PRO, MG #### [address] Erythrocyte distribution width (RBC) [Ratio] 13.3 % Normal 12.0-14.8 [facility] Comment on above: Performed By: #### B 2 GLYPROT XOCHITL, FACTOR II DNA, HOMOCYS PL, FACV LEIDM, PROCF, LIPA, LUPANTCOAG, PROT S FUN, METH, CARDIO GMA, AT3 DEF PROFILE #### [facility] , #### [id number], CBC, PHOS, BMP, FE PRO, MG #### [address] Hematocrit (Bld) [Volume fraction] 41.6 % Normal 38.8-50.0 [facility] Comment on above: Performed By: #### B 2 GLYPROT XOCHITL, FACTOR II DNA, HOMOCYS PL, FACV LEIDM, PROCF, LIPA, LUPANTCOAG, PROT S FUN, METH, CARDIO GMA, AT3 DEF PROFILE #### [facility] , #### [id number], CBC, PHOS, BMP, FE PRO, MG #### [facility] [address] Hemoglobin (Bld) [Mass/Vol] 14.5 g/dL Normal 13.0-17.0 [facility] Comment on above: Performed By: #### B 2 GLYPROT XOCHITL, FACTOR II DNA, HOMOCYS PL, FACV LEIDM, PROCF, LIPA, LUPANTCOAG, PROT S FUN, METH, CARDIO GMA, AT3 DEF PROFILE #### [facility] , #### [id number], CBC, PHOS, BMP, FE PRO, MG #### [facility] [address] [place] [address] Lymphocytes (Bld) [#/Vol] 2.2 10*3/uL Normal 1.00-4.8 [facility] Comment on above: Performed By: #### B 2 GLYPROT XOCHITL, FACTOR II DNA, HOMOCYS PL, FACV LEIDM, PROCF, LIPA, LUPANTCOAG, PROT S FUN, METH, CARDIO GMA, AT3 DEF PROFILE #### [facility] , #### [id number], CBC, PHOS, BMP, FE PRO, MG #### [facility] [address] [place] [address] [place] Lymphocytes/100 WBC (Bld) 25.8 % Normal . [facility] Comment on above: Performed By: #### B 2 GLYPROT XOCHITL, FACTOR II DNA, HOMOCYS PL, FACV LEIDM, PROCF, LIPA, LUPANTCOAG, PROT S FUN, METH, CARDIO GMA, AT3 DEF PROFILE #### [facility] , #### [id number], CBC, PHOS, BMP, FE PRO, MG #### [address] MCH (RBC) [Entitic mass] 31.5 pg Normal 27.5-35.2 [facility] Comment on above: Performed By: #### B 2 GLYPROT XOCHITL, FACTOR II DNA, HOMOCYS PL, FACV LEIDM, PROCF, LIPA, LUPANTCOAG, PROT S FUN, METH, CARDIO GMA, AT3 DEF PROFILE #### [facility] , #### [id number], CBC, PHOS, BMP, FE PRO, MG #### [address] MCV (RBC) [Entitic vol] 90.8 fL Normal 83.5-101 [facility] Comment on above: Performed By: #### B 2 GLYPROT XOCHITL, FACTOR II DNA, HOMOCYS PL, FACV LEIDM, PROCF, LIPA, LUPANTCOAG, PROT S FUN, METH, CARDIO GMA, AT3 DEF PROFILE #### [facility] , #### [id number], CBC, PHOS, BMP, FE PRO, MG #### [address] Mean Corpuscular HGB Conc 34.7 g/dL Normal 32.5-35.6 [facility] Comment on above: Performed By: #### B 2 GLYPROT XOHCITL, FACTOR II DNA, HOMOCYS PL, FACV LEIDM, PROCF, LIPA, LUPANTCOAG, PROT S FUN, METH, CARDIO GMA, AT3 DEF PROFILE #### [facility] , #### [id number], CBC, PHOS, BMP, FE PRO, MG #### [address] Monocytes (Bld) [#/Vol] 1.1 10*3/uL High 0.0-0.8 [facility] Comment on above: Performed By: #### B 2 GLYPROT XOCHITL, FACTOR II DNA, HOMOCYS PL, FACV LEIDM, PROCF, LIPA, LUPANTCOAG, PROT S FUN, METH, CARDIO GMA, AT3 DEF PROFILE #### [facility] , #### [id number], CBC, PHOS, BMP, FE PRO, MG #### [address] Monocytes/100 WBC (Bld) 12.4 % Normal . [facility] Comment on above: Performed By: #### B 2 GLYPROT XOCHITL, FACTOR II DNA, HOMOCYS PL, FACV LEIDM, PROCF, LIPA, LUPANTCOAG, PROT S FUN, METH, CARDIO GMA, AT3 DEF PROFILE #### [facility] , #### [id number], CBC, PHOS, BMP, FE PRO, MG #### [place] [address] [place] Neutrophils (Bld) [#/Vol] 4.8 10*3/uL Normal 1.8-7.7 [facility] Comment on above: Performed By: #### B 2 GLYPROT XOCHITL, FACTOR II DNA, HOMOCYS PL, FACV LEIDM, PROCF, LIPA, LUPANTCOAG, PROT S FUN, METH, CARDIO GMA, AT3 DEF PROFILE #### [facility] , #### [id number], CBC, PHOS, BMP, FE PRO, MG #### [address] Neutrophils/100 WBC (Bld) 56.6 % Normal . [facility] Comment on above: Performed By: #### B 2 GLYPROT XOCHITL, FACTOR II DNA, HOMOCYS PL, FACV LEIDM, PROCF, LIPA, LUPANTCOAG, PROT S FUN, METH, CARDIO GMA, AT3 DEF PROFILE #### [facility] , #### [id number], CBC, PHOS, BMP, FE PRO, MG #### [place] [id number] [place] Nucleated RBC/100 WBC (Bld) [Ratio] 0.2 % Normal 0-0.5 [facility] Comment on above: Performed By: #### B 2 GLYPROT XOCHITL, FACTOR II DNA, HOMOCYS PL, FACV LEIDM, PROCF, LIPA, LUPANTCOAG, PROT S FUN, METH, CARDIO GMA, AT3 DEF PROFILE #### [facility] , #### [id number], CBC, PHOS, BMP, FE PRO, MG #### [facility] [address] Platelet mean volume (Bld) [Entitic vol] 10.0 fL Normal 6.6-10.1 [facility] Comment on above: Performed By: #### B 2 GLYPROT XOCHITL, FACTOR II DNA, HOMOCYS PL, FACV LEIDM, PROCF, LIPA, LUPANTCOAG, PROT S FUN, METH, CARDIO GMA, AT3 DEF PROFILE #### [facility] , #### [id number], CBC, PHOS, BMP, FE PRO, MG #### [facility] [address] [place] [address] Platelets (Bld) [#/Vol] 229 10*3/uL Normal 150-450 [facility] Comment on above: Performed By: #### B 2 GLYPROT XOCHITL, FACTOR II DNA, HOMOCYS PL, FACV LEIDM, PROCF, LIPA, LUPANTCOAG, PROT S FUN, METH, CARDIO GMA, AT3 DEF PROFILE #### [facility] , #### [id number], CBC, PHOS, BMP, FE PRO, MG #### [facility] [address] [place] [address] RBC (Bld) [#/Vol] 4.59 10*6/uL Normal 3.90-5.60 [place] Comment on above: Performed By: #### B 2 GLYPROT XOCHITL, FACTOR II DNA, HOMOCYS PL, FACV LEIDM, PROCF, LIPA, LUPANTCOAG, PROT S FUN, METH, CARDIO GMA, AT3 DEF PROFILE #### [facility] , #### [id number], CBC, PHOS, BMP, FE PRO, MG #### [facility] [address] [place] [address] WBC (Bld) [#/Vol] 8.5 10*3/uL Normal 4.5-11.0 [facility] Comment on above: Performed By: #### B 2 GLYPROT XOCHITL, FACTOR II DNA, HOMOCYS PL, FACV LEIDM, PROCF, LIPA, LUPANTCOAG, PROT S FUN, METH, CARDIO GMA, AT3 DEF PROFILE #### [facility] , #### [id number], CBC, PHOS, BMP, FE PRO, MG #### [facility] [address] [place] [address] ECG 12 lead ECGon 09-11-2020 ECG 12 lead ECG [facility] Main [place] [address] [place] [address] Electrocardiograph Report Signed Patient: Don Elkins MR#: [id number] : 1950 Acct:[id number] Age/Sex: 70 / M ADM Date: 09/11/20 Loc: ER Room: Type: [facility] ER Attending Dr: Ordering Provider: Michele Gamino [...] was found Confirmed by Michele GAMINO DO ([id number]) on 09/11/2020 7:48:19 PM Referred By: Electronically Signed By:Michele GAMINO DO Transcribed By: MUS Dictated By: Michele Gamino DO 09/11/20 1739 Signed By: 09/11/201947 Normal [facility] Hepatic Panelon 09-11-2020 Albumin [Mass/Vol] 3.4 g/dL Normal 3.2-5.5 [facility] Comment on above: Performed By: #### B 2 GLYPROT XOCHITL, FACTOR II DNA, HOMOCYS PL, FACV LEIDM, PROCF, LIPA, LUPANTCOAG, PROT S FUN, METH, CARDIO GMA, AT3 DEF PROFILE #### [facility] , #### [id number], CBC, PHOS, BMP, FE PRO, MG #### [facility] [address] Albumin/Globulin [Mass ratio] 1.3 {ratio} [facility] Comment on above: Performed By: #### B 2 GLYPROT XOCHITL, FACTOR II DNA, HOMOCYS PL, FACV LEIDM, PROCF, LIPA, LUPANTCOAG, PROT S FUN, METH, CARDIO GMA, AT3 DEF PROFILE #### [facility] , #### [id number], CBC, PHOS, BMP, FE PRO, MG #### [facility] [address] ALP [Catalytic activity/Vol] 45 U/L Normal 32-92 [facility] Comment on above: Performed By: #### B 2 GLYPROT XOCHITL, FACTOR II DNA, HOMOCYS PL, FACV LEIDM, PROCF, LIPA, LUPANTCOAG, PROT S FUN, METH, CARDIO GMA, AT3 DEF PROFILE #### [facility] , #### [id number], CBC, PHOS, BMP, FE PRO, MG #### [facility] [address] [place] [id number] [place] ALT [Catalytic activity/Vol] 152 U/L High 10-60 [facility] Comment on above: Performed By: #### B 2 GLYPROT XOCHITL, FACTOR II DNA, HOMOCYS PL, FACV LEIDM, PROCF, LIPA, LUPANTCOAG, PROT S FUN, METH, CARDIO GMA, AT3 DEF PROFILE #### [facility] , #### [id number], CBC, PHOS, BMP, FE PRO, MG #### [address] AST [Catalytic activity/Vol] 64 U/L High 10-42 [facility] Comment on above: Performed By: #### B 2 GLYPROT XOCHITL, FACTOR II DNA, HOMOCYS PL, FACV LEIDM, PROCF, LIPA, LUPANTCOAG, PROT S FUN, METH, CARDIO GMA, AT3 DEF PROFILE #### [facility] , #### [id number], CBC, PHOS, BMP, FE PRO, MG #### [address] Bilirubin [Mass/Vol] 1.6 mg/dL High 0.3-1.2 [...] AT3 DEF PROFILE #### [facility] , #### [id number], CBC, PHOS, BMP, FE PRO, MG #### [address] Bilirubin,Indirec t 1.4 mg/dL Normal [facility] Comment on above: Performed By: #### B 2 GLYPROT XOCHITL, FACTOR II DNA, HOMOCYS PL, FACV LEIDM, PROCF, LIPA, LUPANTCOAG, PROT S FUN, METH, CARDIO GMA, AT3 DEF PROFILE #### [facility] , #### [id number], CBC, PHOS, BMP, FE PRO, MG #### [address] Bilirubin.indirec t [Mass/Vol] 0.2 mg/dL Normal 0.0-0.4 [facility] Comment on above: Performed By: #### B 2 GLYPROT XOCHITL, FACTOR II DNA, HOMOCYS PL, FACV LEIDM, PROCF, LIPA, LUPANTCOAG, PROT S FUN, METH, CARDIO GMA, AT3 DEF PROFILE #### [facility] , #### [id number], CBC, PHOS, BMP, FE PRO, MG #### [facility] [address] [place] [address] Globulin (S) [Mass/Vol] 2.6 g/dL Normal [facility] Comment on above: Performed By: #### B 2 GLYPROT XOCHITL, FACTOR II DNA, HOMOCYS PL, FACV LEIDM, PROCF, LIPA, LUPANTCOAG, PROT S FUN, METH, CARDIO GMA, AT3 DEF PROFILE #### [facility] , #### [id number], CBC, PHOS, BMP, FE PRO, MG #### [address] Protein [Mass/Vol] 6.0 g/dL Low 6.1-7.9 [facility] Comment on above: Performed By: #### B 2 GLYPROT XOCHITL, FACTOR II DNA, HOMOCYS PL, FACV LEIDM, PROCF, LIPA, LUPANTCOAG, PROT S FUN, METH, CARDIO GMA, AT3 DEF PROFILE #### [facility] , #### [id number], CBC, PHOS, BMP, FE PRO, MG #### [facility] [address] [place] [address] Lipaseon 09-11-2020 Lipase [Catalytic activity/Vol] 60.0 U/L High [facility] Comment on above: Result Comment: PERF ORMED BY: [place] [address] PATHOLOGIST [employer]ACIA M.D. Performed By: #### B 2 GLYPROT XOCHITL, FACTOR II DNA, HOMOCYS PL, FACV LEIDM, PROCF, LIPA, LUPANTCOAG, PROT S FUN, METH, CARDIO GMA, AT3 DEF PROFILE #### [facility] , #### [id number], CBC, PHOS, BMP, FE PRO, MG #### [facility] [address] Partial Thromboplastin Timeo n 09-11-2020 aPTT Coag (Bld) [Time] 32.5 s Normal 25.1-36.5 [facility] Comment on above: Result Comment: PERF ORMED BY: [place] [address] PATHOLOGIST [employer]IA M.D. Performed By: #### B 2 GLYPROT XOCHITL, FACTOR II DNA, HOMOCYS PL, FACV LEIDM, PROCF, LIPA, LUPANTCOAG, PROT S FUN, METH, CARDIO GMA, AT3 DEF PROFILE #### [facility] , #### [id number], CBC, PHOS, BMP, FE PRO, MG #### [facility] [address] [place] [address] Prothrombin Time INRon 09-11 INR Coag (PPP) [...] AT3 DEF PROFILE #### [facility] , #### [id number], CBC, PHOS, BMP, FE PRO, MG #### [address] PT Coag (PPP) [Time] 22.4 s High 9.0-12.9 [facility] Comment on above: Performed By: #### B 2 GLYPROT XOCHITL, FACTOR II DNA, HOMOCYS PL, FACV LEIDM, PROCF, LIPA, LUPANTCOAG, PROT S FUN, METH, CARDIO GMA, AT3 DEF PROFILE #### [facility] , #### [id number], CBC, PHOS, BMP, FE PRO, MG #### [address] Kate Ag Negativeon 09-12-19 Kate Ag Negative Negative Normal Negative [facility] Comment on above: Result Comment: This is a duplicate Kate SARS Antigen (ADORE) result to be used for statistical tracking purpose only. PERFORMED BY: [place] [address] PATHOLOGIST [employer] TO[employer] GRACIA M.D. Performed By: #### B 2 GLYPROT XOCHITL, FACTOR II DNA, HOMOCYS PL, FACV LEIDM, PROCF, LIPA, LUPANTCOAG, PROT S FUN, METH, CARDIO GMA, AT3 DEF PROFILE #### [facility] , #### [id number], CBC, PHOS, BMP, FE PRO, MG #### [address] Troponin I(TnI)on 09-11-2020 Troponin I.cardiac [Mass/Vol] ng/mL Normal 0-0.02 [facility] Comment on above: Result Comment: [place] Cut off value > or equal to 0.03 ng/mL in conjunction with clinical conditions of myocardial infarction. ([email or web address].org/[email or web address]) PERFORMED BY: [place] [address] PATHOLOGIST [employer] GRACIA M.D. Performed By: #### B 2 GLYPROT XOCHITL, FACTOR II DNA, HOMOCYS PL, FACV LEIDM, PROCF, LIPA, LUPANTCOAG, PROT S FUN, METH, CARDIO GMA, AT3 DEF PROFILE #### [facility] , #### [id number], CBC, PHOS, BMP, FE PRO, MG #### [facility] [address] [place] [address] Urinalysison 09-11-2020 Appearance (U) Clear Normal Clear [facility] Comment on above: Order Comment: PT IS NON FASTING Performed By: #### B 2 GLYPROT XOCHITL, FACTOR II DNA, HOMOCYS PL, FACV LEIDM, PROCF, LIPA, LUPANTCOAG, PROT S FUN, METH, CARDIO GMA, AT3 DEF PROFILE #### [facility] , #### [id number], CBC, PHOS, BMP, FE PRO, MG #### [facility] [address] [place] [address] Bilirubin,Urine Negative Normal Negative [facility] Comment on above: Order Comment: PT IS NON FASTING Performed By: #### B 2 GLYPROT XOCHITL, FACTOR II DNA, HOMOCYS PL, FACV LEIDM, PROCF, LIPA, LUPANTCOAG, PROT S FUN, METH, CARDIO GMA, AT3 DEF PROFILE #### [facility] , #### [id number], CBC, PHOS, BMP, FE PRO, MG #### [facility] [address] [place] [address] [place] Color (U) Yellow Normal Yellow [facility] Comment on above: Order Comment: PT IS NON FASTING Performed By: #### B 2 GLYPROT XOCHITL, FACTOR II DNA, HOMOCYS PL, FACV LEIDM, PROCF, LIPA, LUPANTCOAG, PROT S FUN, METH, CARDIO GMA, AT3 DEF PROFILE #### [facility] , #### [id number], CBC, PHOS, BMP, FE PRO, MG #### [facility] [address] [place] [address] [place] Glucose Ql (U) Normal Normal Normal [facility] Comment on above: Order Comment: PT IS NON FASTING Performed By: #### B 2 GLYPROT XOCHITL, FACTOR II DNA, HOMOCYS PL, FACV LEIDM, PROCF, LIPA, LUPANTCOAG, PROT S FUN, METH, CARDIO GMA, AT3 DEF PROFILE #### [facility] , #### [id number], CBC, PHOS, BMP, FE PRO, MG #### [address] Ketones Ql (U) Negative Normal Negative [facility] Comment on above: Order Comment: PT IS NON FASTING Performed By: #### B 2 GLYPROT XOCHITL, FACTOR II DNA, HOMOCYS PL, FACV LEIDM, PROCF, LIPA, LUPANTCOAG, PROT S FUN, METH, CARDIO GMA, AT3 DEF PROFILE #### [facility] , #### [id number], CBC, PHOS, BMP, FE PRO, MG #### [address] Leukocyte esterase Test strip Ql (U) Negative Normal Negative [facility] Comment on above: Order Comment: PT IS NON FASTING Performed By: #### B 2 GLYPROT XOCHITL, FACTOR II DNA, HOMOCYS PL, FACV LEIDM, PROCF, LIPA, LUPANTCOAG, PROT S FUN, METH, CARDIO GMA, AT3 DEF PROFILE #### [facility] , #### [id number], CBC, PHOS, BMP, FE PRO, MG #### [address] Nitrite,Urine Negative Normal Negative [facility] Comment on above: Order Comment: PT IS NON FASTING Performed By: #### B 2 GLYPROT XOCHITL, FACTOR II DNA, HOMOCYS PL, FACV LEIDM, PROCF, LIPA, LUPANTCOAG, PROT S FUN, METH, CARDIO GMA, AT3 DEF PROFILE #### [facility] , #### [id number], CBC, PHOS, BMP, FE PRO, MG #### [address] Occult Blood,Urine Negative Normal Negative [facility] Comment on above: Order Comment: PT IS NON FASTING Result Comment: PERF ORMED BY: [place] [address] PATHOLOGIST SUPERVISOR [employer] TO[employer] GRACIA M.D. Performed By: #### B 2 GLYPROT XOCHITL, FACTOR II DNA, HOMOCYS PL, FACV LEIDM, PROCF, LIPA, LUPANTCOAG, PROT S FUN, METH, CARDIO GMA, AT3 DEF PROFILE #### [facility] , #### [id number], CBC, PHOS, BMP, FE PRO, MG #### [facility] [address] [place] [address] pH (U) 5.0 [pH] Normal 5.0-9.0 [facility] Comment on above: Order Comment: PT IS NON FASTING Performed By: #### B 2 GLYPROT XOCHITL, FACTOR II DNA, HOMOCYS PL, FACV LEIDM, PROCF, LIPA, LUPANTCOAG, PROT S FUN, METH, CARDIO GMA, AT3 DEF PROFILE #### [facility] , #### [id number], CBC, PHOS, BMP, FE PRO, MG #### [facility] [address] [place] [address] Protein,Urine Negative Normal Negative [facility] Comment on above: Order Comment: PT IS NON FASTING Performed By: #### B 2 GLYPROT XOCHITL, FACTOR II DNA, HOMOCYS PL, FACV LEIDM, PROCF, LIPA, LUPANTCOAG, PROT S FUN, METH, CARDIO GMA, AT3 DEF PROFILE #### [facility] , #### [id number], CBC, PHOS, BMP, FE PRO, MG #### [facility] [address] [place] [address] Specificy [place],Urine 1.026 Normal 1.001-1.030 [facility] Comment on above: Order Comment: PT IS NON FASTING Performed By: #### B 2 GLYPROT XOCHITL, FACTOR II DNA, HOMOCYS PL, FACV LEIDM, PROCF, LIPA, LUPANTCOAG, PROT S FUN, METH, CARDIO GMA, AT3 DEF PROFILE #### [facility] , #### [id number], CBC, PHOS, BMP, FE PRO, MG #### [address] Urobilinogen,Urin e Normal Normal Normal [facility] Comment on above: Order Comment: PT IS NON FASTING Performed By: #### B 2 GLYPROT XOCHITL, FACTOR II DNA, HOMOCYS PL, FACV LEIDM, PROCF, LIPA, LUPANTCOAG, PROT S FUN, METH, CARDIO GMA, AT3 DEF PROFILE #### [facility] , #### [id number], CBC, PHOS, BMP, FE PRO, MG #### [address] XR hand BI 3Von 07-26-2020 XR hand BI 3V [facility] [place] [address] XRay Report Signed Patient: Don Elkins MR#: [id number] : 1950 Acct:[id number] Age/Sex: 69 / M ADM Date: 07/26/20 Loc: [facility] Room: Type: [facility] Attending Dr: Tamiko Rivera MD Ordering [...] Thompson Jr., M.D.07/26/2020 1:18 PM Dictation Location: [place] [address] Transcribed By: [facility] 07/26/201317 Dictated By: Cale Thompson Jr, MD 07/26/201310 Signed By: 07/26/20 1318 Normal [facility] Anticardiolipin IgG/M/A, Qno n 07-18-2020 Anticardiolipin Ab, IgA,Qn <9 Normal 0-11 [facility] Comment on above: Order Comment: PT IS NON FASTING Result Comment: Nega tive: <12 Indeterminate: 12 - 20 Low-Med Positive: >20 - 80 High Positive: >80 Performed at: [facility] [address] [id number] Disaster Or Damage Control Specialist: Prakash Barbour PhD, Phone: [phone] Performed By: #### B 2 GLYPROT XOCHITL, FACTOR II DNA, HOMOCYS PL, FACV LEIDM, PROCF, LIPA, LUPANTCOAG, PROT S FUN, METH, CARDIO GMA, AT3 DEF PROFILE #### [facility] , #### [id number], CBC, PHOS, BMP, FE PRO, MG #### [facility] [address] [place] [address] Anticardiolipin Ab, IgG,Qn <9 Normal 0-14 Martins [...] AT3 DEF PROFILE #### [facility] , #### [id number], CBC, PHOS, BMP, FE PRO, MG #### [facility] [address] [place] [address] [place] Anticardiolipin Ab, IgM,Qn <9 Normal 0-12 Martins [...] AT3 DEF PROFILE #### [facility] , #### [id number], CBC, PHOS, BMP, FE PRO, MG #### [facility] [address] Antithrombin Deficiency Prof on 07-18-2020 Anti-Thrombin [...] AT3 DEF PROFILE #### [facility] , #### [id number], CBC, PHOS, BMP, FE PRO, MG #### [facility] [address] [place] [id number] [facility] Antithrombin Activity 106 % Normal 75-135 Martins [...] AT3 DEF PROFILE #### [facility] , #### [id number], CBC, PHOS, BMP, FE PRO, MG #### [facility] [address] Basic Metabolic Panelon 03-0 Calcium [Mass/Vol] 8.8 mg/dL Normal 8.2-10.2 [facility] Comment on above: Order Comment: PT IS NON FASTING Performed By: #### B 2 GLYPROT XOCHITL, FACTOR II DNA, HOMOCYS PL, FACV LEIDM, PROCF, LIPA, LUPANTCOAG, PROT S FUN, METH, CARDIO GMA, AT3 DEF PROFILE #### [facility] , #### [id number], CBC, PHOS, BMP, FE PRO, MG #### [facility] [address] [place] [address] Chloride [Moles/Vol] 96 mmol/L Normal 95-114 [facility] Comment on above: Order Comment: PT IS NON FASTING Performed By: #### B 2 GLYPROT XOCHITL, FACTOR II DNA, HOMOCYS PL, FACV LEIDM, PROCF, LIPA, LUPANTCOAG, PROT S FUN, METH, CARDIO GMA, AT3 DEF PROFILE #### [facility] , #### [id number], CBC, PHOS, BMP, FE PRO, MG #### [address] CO2 [Moles/Vol] 23.9 mmol/L Normal 22.0-30.0 [facility] Comment on above: Order Comment: PT IS NON FASTING Performed By: #### B 2 GLYPROT XOCHITL, FACTOR II DNA, HOMOCYS PL, FACV LEIDM, PROCF, LIPA, LUPANTCOAG, PROT S FUN, METH, CARDIO GMA, AT3 DEF PROFILE #### [facility] , #### [id number], CBC, PHOS, BMP, FE PRO, MG #### [facility] [address] [place] [address] Creatinine [Mass/Vol] 1.31 mg/dL High 0.64-1.27 [facility] Comment on above: Order Comment: PT IS NON FASTING Performed By: #### B 2 GLYPROT XOCHITL, FACTOR II DNA, HOMOCYS PL, FACV LEIDM, PROCF, LIPA, LUPANTCOAG, PROT S FUN, METH, CARDIO GMA, AT3 DEF PROFILE #### [facility] , #### [id number], CBC, PHOS, BMP, FE PRO, MG #### [facility] [address] [place] [id number] [place] Estimated GFR ( Gabriela > 60 [facility] Comment on above: Order Comment: PT IS NON FASTING Result Comment: GFR estimated reference range: According to KDOQI guidelines, <60 ml/min/1.73m2 is sufficient to diagnose a patient with chronic kidney disease. Performed By: #### B 2 GLYPROT XOCHITL, FACTOR II DNA, HOMOCYS PL, FACV LEIDM, PROCF, LIPA, LUPANTCOAG, PROT S FUN, METH, CARDIO GMA, AT3 DEF PROFILE #### [facility] , #### [id number], CBC, PHOS, BMP, FE PRO, MG #### [facility] [address] [place] [address] [place] Estimated GFR (Non- Am 54 [facility] Comment on above: Order Comment: PT IS NON FASTING Performed By: #### B 2 GLYPROT XOCHITL, FACTOR II DNA, HOMOCYS PL, FACV LEIDM, PROCF, LIPA, LUPANTCOAG, PROT S FUN, METH, CARDIO GMA, AT3 DEF PROFILE #### [facility] , #### [id number], CBC, PHOS, BMP, FE PRO, MG #### [facility] [address] [place] [address] [place] Glucose [Mass/Vol] 336 mg/dL High 70-100 [facility] Comment on above: Order Comment: PT IS NON FASTING Result Comment: [place]ake Glucose Reference Range is dependent on time and content of last meal. Glucose of more than 200 mg/dL in a nonstressed, ambulatory subject supports the diagnosis of Diabetes Mellitus. ADA recommended reference range Performed By: #### B 2 GLYPROT XOCHITL, FACTOR II DNA, HOMOCYS PL, FACV LEIDM, PROCF, LIPA, LUPANTCOAG, PROT S FUN, METH, CARDIO GMA, AT3 DEF PROFILE #### [facility] , #### [id number], CBC, PHOS, BMP, FE PRO, MG #### [address] Potassium [Moles/Vol] 4.7 mmol/L Normal 3.5-5.1 [facility] Comment on above: Order Comment: PT IS NON FASTING Performed By: #### B 2 GLYPROT XOCHITL, FACTOR II DNA, HOMOCYS PL, FACV LEIDM, PROCF, LIPA, LUPANTCOAG, PROT S FUN, METH, CARDIO GMA, AT3 DEF PROFILE #### [facility] , #### [id number], CBC, PHOS, BMP, FE PRO, MG #### [address] Sodium [Moles/Vol] 131 mmol/L Low 136-146 [facility] Comment on above: Order Comment: PT IS NON FASTING Performed By: #### B 2 GLYPROT XOCHITL, FACTOR II DNA, HOMOCYS PL, FACV LEIDM, PROCF, LIPA, LUPANTCOAG, PROT S FUN, METH, CARDIO GMA, AT3 DEF PROFILE #### [facility] , #### [id number], CBC, PHOS, BMP, FE PRO, MG #### [address] Urea nitrogen [Mass/Vol] 22 mg/dL Normal 9-23 [facility] Comment on above: Order Comment: PT IS NON FASTING Performed By: #### B 2 GLYPROT XOCHITL, FACTOR II DNA, HOMOCYS PL, FACV LEIDM, PROCF, LIPA, LUPANTCOAG, PROT S FUN, METH, CARDIO GMA, AT3 DEF PROFILE #### [facility] , #### [id number], CBC, PHOS, BMP, FE PRO, MG #### [address] Beta 2 Glycoprotein I Ab IgG [...] AT3 DEF PROFILE #### [facility] , #### [id number], CBC, PHOS, BMP, FE PRO, MG #### [facility] [address] [place] [address] [place] Beta 2 Glycoprotein I Ab, IgG [...] AT3 DEF PROFILE #### [facility] , #### [id number], CBC, PHOS, BMP, FE PRO, MG #### [facility] [address] [place] [address] [place] Beta 2 Glycoprotein I Ab, IgM [...] (APS). J Thromb Haem 2006;4:295-306. Performed at: [address] [id number] Disaster Or Damage Control Specialist: Meet Parish MD, Phone: [phone] Performed By: #### B 2 GLYPROT XOCHITL, FACTOR II DNA, HOMOCYS PL, FACV LEIDM, PROCF, LIPA, LUPANTCOAG, PROT S FUN, METH, CARDIO GMA, AT3 DEF PROFILE #### [facility] , #### [id number], CBC, PHOS, BMP, FE PRO, MG #### [address] Complete Blood Count Auto Di ffon 07-18-2020 Basophils (Bld) [#/Vol] 0.1 10*3/uL Normal 0.0-0.2 [facility] Comment on above: Order Comment: PT IS NON FASTING Result Comment: PERF ORMED BY: [place] [address] PATHOLOGIST SUPERVISOR [employer] GRACIA M.D. Performed By: #### B 2 GLYPROT XOCHITL, FACTOR II DNA, HOMOCYS PL, FACV LEIDM, PROCF, LIPA, LUPANTCOAG, PROT S FUN, METH, CARDIO GMA, AT3 DEF PROFILE #### [facility] , #### [id number], CBC, PHOS, BMP, FE PRO, MG #### [address] Basophils/100 WBC (Bld) 0.8 % Normal . [facility] Comment on above: Order Comment: PT IS NON FASTING Performed By: #### B 2 GLYPROT XOCHITL, FACTOR II DNA, HOMOCYS PL, FACV LEIDM, PROCF, LIPA, LUPANTCOAG, PROT S FUN, METH, CARDIO GMA, AT3 DEF PROFILE #### [facility] , #### [id number], CBC, PHOS, BMP, FE PRO, MG #### [facility] [address] [place] [address] [place] Eosinophils (Bld) [#/Vol] 0.2 10*3/uL Normal 0.0-0.45 [facility] Comment on above: Order Comment: PT IS NON FASTING Performed By: #### B 2 GLYPROT XOCHITL, FACTOR II DNA, HOMOCYS PL, FACV LEIDM, PROCF, LIPA, LUPANTCOAG, PROT S FUN, METH, CARDIO GMA, AT3 DEF PROFILE #### [facility] , #### [id number], CBC, PHOS, BMP, FE PRO, MG #### [facility] [address] Eosinophils/100 WBC (Bld) 2.2 % Normal . [facility] Comment on above: Order Comment: PT IS NON FASTING Performed By: #### B 2 GLYPROT XOCHITL, FACTOR II DNA, HOMOCYS PL, FACV LEIDM, PROCF, LIPA, LUPANTCOAG, PROT S FUN, METH, CARDIO GMA, AT3 DEF PROFILE #### [facility] , #### [id number], CBC, PHOS, BMP, FE PRO, MG #### [address] Erythrocyte distribution width (RBC) [Ratio] 12.6 % Normal 12.0-14.8 [facility] Comment on above: Order Comment: PT IS NON FASTING Performed By: #### B 2 GLYPROT XOCHITL, FACTOR II DNA, HOMOCYS PL, FACV LEIDM, PROCF, LIPA, LUPANTCOAG, PROT S FUN, METH, CARDIO GMA, AT3 DEF PROFILE #### [facility] , #### [id number], CBC, PHOS, BMP, FE PRO, MG #### [facility] [address] [place] [address] Hematocrit (Bld) [Volume fraction] 40.3 % Normal 38.8-50.0 [facility] Comment on above: Order Comment: PT IS NON FASTING Performed By: #### B 2 GLYPROT XOCHITL, FACTOR II DNA, HOMOCYS PL, FACV LEIDM, PROCF, LIPA, LUPANTCOAG, PROT S FUN, METH, CARDIO GMA, AT3 DEF PROFILE #### [facility] , #### [id number], CBC, PHOS, BMP, FE PRO, MG #### [address] Hemoglobin (Bld) [Mass/Vol] 13.9 g/dL Normal 13.0-17.0 [facility] Comment on above: Order Comment: PT IS NON FASTING Performed By: #### B 2 GLYPROT XOCHITL, FACTOR II DNA, HOMOCYS PL, FACV LEIDM, PROCF, LIPA, LUPANTCOAG, PROT S FUN, METH, CARDIO GMA, AT3 DEF PROFILE #### [facility] , #### [id number], CBC, PHOS, BMP, FE PRO, MG #### [address] Lymphocytes (Bld) [#/Vol] 2.0 10*3/uL Normal 1.00-4.8 [facility] Comment on above: Order Comment: PT IS NON FASTING Performed By: #### B 2 GLYPROT XOCHITL, FACTOR II DNA, HOMOCYS PL, FACV LEIDM, PROCF, LIPA, LUPANTCOAG, PROT S FUN, METH, CARDIO GMA, AT3 DEF PROFILE #### [facility] , #### [id number], CBC, PHOS, BMP, FE PRO, MG #### [address] Lymphocytes/100 WBC (Bld) 21.0 % Normal . [facility] Comment on above: Order Comment: PT IS NON FASTING Performed By: #### B 2 GLYPROT XOCHTIL, FACTOR II DNA, HOMOCYS PL, FACV LEIDM, PROCF, LIPA, LUPANTCOAG, PROT S FUN, METH, CARDIO GMA, AT3 DEF PROFILE #### [facility] , #### [id number], CBC, PHOS, BMP, FE PRO, MG #### [place] [address] [place] MCH (RBC) [Entitic mass] 31.4 pg Normal 27.5-35.2 [facility] Comment on above: Order Comment: PT IS NON FASTING Performed By: #### B 2 GLYPROT XOCHITL, FACTOR II DNA, HOMOCYS PL, FACV LEIDM, PROCF, LIPA, LUPANTCOAG, PROT S FUN, METH, CARDIO GMA, AT3 DEF PROFILE #### [facility] , #### [id number], CBC, PHOS, BMP, FE PRO, MG #### [facility] [address] MCV (RBC) [Entitic vol] 91.1 fL Normal 83.5-101 [facility] Comment on above: Order Comment: PT IS NON FASTING Performed By: #### B 2 GLYPROT XOCHITL, FACTOR II DNA, HOMOCYS PL, FACV LEIDM, PROCF, LIPA, LUPANTCOAG, PROT S FUN, METH, CARDIO GMA, AT3 DEF PROFILE #### [facility] , #### [id number], CBC, PHOS, BMP, FE PRO, MG #### [facility] [address] Mean Corpuscular HGB Conc 34.5 g/dL Normal 32.5-35.6 [facility] Comment on above: Order Comment: PT IS NON FASTING Performed By: #### B 2 GLYPROT XOCHITL, FACTOR II DNA, HOMOCYS PL, FACV LEIDM, PROCF, LIPA, LUPANTCOAG, PROT S FUN, METH, CARDIO GMA, AT3 DEF PROFILE #### [facility] , #### [id number], CBC, PHOS, BMP, FE PRO, MG #### [facility] [address] Monocytes (Bld) [#/Vol] 0.7 10*3/uL Normal 0.0-0.8 [facility] Comment on above: Order Comment: PT IS NON FASTING Performed By: #### B 2 GLYPROT XOCHITL, FACTOR II DNA, HOMOCYS PL, FACV LEIDM, PROCF, LIPA, LUPANTCOAG, PROT S FUN, METH, CARDIO GMA, AT3 DEF PROFILE #### [facility] , #### [id number], CBC, PHOS, BMP, FE PRO, MG #### [facility] [address] [place] [address] [place] Monocytes/100 WBC (Bld) 7.0 % Normal . [facility] Comment on above: Order Comment: PT IS NON FASTING Performed By: #### B 2 GLYPROT OXCHITL, FACTOR II DNA, HOMOCYS PL, FACV LEIDM, PROCF, LIPA, LUPANTCOAG, PROT S FUN, METH, CARDIO GMA, AT3 DEF PROFILE #### [facility] , #### [id number], CBC, PHOS, BMP, FE PRO, MG #### [place] [address] [place] Neutrophils (Bld) [#/Vol] 6.7 10*3/uL Normal 1.8-7.7 [facility] Comment on above: Order Comment: PT IS NON FASTING Performed By: #### B 2 GLYPROT XOCHITL, FACTOR II DNA, HOMOCYS PL, FACV LEIDM, PROCF, LIPA, LUPANTCOAG, PROT S FUN, METH, CARDIO GMA, AT3 DEF PROFILE #### [facility] , #### [id number], CBC, PHOS, BMP, FE PRO, MG #### [facility] [address] [place] [address] [place] Neutrophils/100 WBC (Bld) 69.0 % Normal . [facility] Comment on above: Order Comment: PT IS NON FASTING Performed By: #### B 2 GLYPROT XOCHITL, FACTOR II DNA, HOMOCYS PL, FACV LEIDM, PROCF, LIPA, LUPANTCOAG, PROT S FUN, METH, CARDIO GMA, AT3 DEF PROFILE #### [facility] , #### [id number], CBC, PHOS, BMP, FE PRO, MG #### [facility] [address] [place] [address] Nucleated RBC/100 WBC (Bld) [Ratio] 0.2 % Normal 0-0.5 [facility] Comment on above: Order Comment: PT IS NON FASTING Performed By: #### B 2 GLYPROT XOCHITL, FACTOR II DNA, HOMOCYS PL, FACV LEIDM, PROCF, LIPA, LUPANTCOAG, PROT S FUN, METH, CARDIO GMA, AT3 DEF PROFILE #### [facility] , #### [id number], CBC, PHOS, BMP, FE PRO, MG #### [facility] [address] [place] [address] Platelet mean volume (Bld) [Entitic vol] 10.7 fL High 6.6-10.1 [facility] Comment on above: Order Comment: PT IS NON FASTING Performed By: #### B 2 GLYPROT XOCHITL, FACTOR II DNA, HOMOCYS PL, FACV LEIDM, PROCF, LIPA, LUPANTCOAG, PROT S FUN, METH, CARDIO GMA, AT3 DEF PROFILE #### [facility] , #### [id number], CBC, PHOS, BMP, FE PRO, MG #### [facility] [address] [place] [address] Platelets (Bld) [#/Vol] 201 10*3/uL Normal 150-450 [facility] Comment on above: Order Comment: PT IS NON FASTING Performed By: #### B 2 GLYPROT XOCHITL, FACTOR II DNA, HOMOCYS PL, FACV LEIDM, PROCF, LIPA, LUPANTCOAG, PROT S FUN, METH, CARDIO GMA, AT3 DEF PROFILE #### [facility] , #### [id number], CBC, PHOS, BMP, FE PRO, MG #### [facility] [address] [place] [address] RBC (Bld) [#/Vol] 4.42 10*6/uL Normal 3.90-5.60 [place] Comment on above: Order Comment: PT IS NON FASTING Performed By: #### B 2 GLYPROT XOCHITL, FACTOR II DNA, HOMOCYS PL, FACV LEIDM, PROCF, LIPA, LUPANTCOAG, PROT S FUN, METH, CARDIO GMA, AT3 DEF PROFILE #### [facility] , #### [id number], CBC, PHOS, BMP, FE PRO, MG #### [address] WBC (Bld) [#/Vol] 9.7 10*3/uL Normal 4.5-11.0 [facility] Comment on above: Order Comment: PT IS NON FASTING Performed By: #### B 2 GLYPROT XOCHITL, FACTOR II DNA, HOMOCYS PL, FACV LEIDM, PROCF, LIPA, LUPANTCOAG, PROT S FUN, METH, CARDIO GMA, AT3 DEF PROFILE #### [facility] , #### [id number], CBC, PHOS, BMP, FE PRO, MG #### [address] FE PROon 07-18-2020 % Iron Saturation 27.0 % Normal 20-50 [facility] Comment on above: Order Comment: PT IS NON FASTING Performed By: #### B 2 GLYPROT XOCHITL, FACTOR II DNA, HOMOCYS PL, FACV LEIDM, PROCF, LIPA, LUPANTCOAG, PROT S FUN, METH, CARDIO GMA, AT3 DEF PROFILE #### [facility] , #### [id number], CBC, PHOS, BMP, FE PRO, MG #### [address] Ferritin [Mass/Vol] 261.0 ng/mL Normal 23.9-336.2 [facility] Comment on above: Order Comment: PT IS NON FASTING Performed By: #### B 2 GLYPROT XOCHITL, FACTOR II DNA, HOMOCYS PL, FACV LEIDM, PROCF, LIPA, LUPANTCOAG, PROT S FUN, METH, CARDIO GMA, AT3 DEF PROFILE #### [facility] , #### [id number], CBC, PHOS, BMP, FE PRO, MG #### [facility] [address] Iron [Mass/Vol] 108 ug/dL Normal 40-160 [facility] Comment on above: Order Comment: PT IS NON FASTING Performed By: #### B 2 GLYPROT XOCHITL, FACTOR II DNA, HOMOCYS PL, FACV LEIDM, PROCF, LIPA, LUPANTCOAG, PROT S FUN, METH, CARDIO GMA, AT3 DEF PROFILE #### [facility] , #### [id number], CBC, PHOS, BMP, FE PRO, MG #### [facility] [address] [place] [address] Total Iron Binding Capacity 398 ug/dL Normal 255-450 [facility] Comment on above: Order Comment: PT IS NON FASTING Performed By: #### B 2 GLYPROT XOCHITL, FACTOR II DNA, HOMOCYS PL, FACV LEIDM, PROCF, LIPA, LUPANTCOAG, PROT S FUN, METH, CARDIO GMA, AT3 DEF PROFILE #### [facility] , #### [id number], CBC, PHOS, BMP, FE PRO, MG #### [facility] [address] [place] [address] Transferrin [Mass/Vol] 284 mg/dL Normal 180-380 [facility] Comment on above: Order Comment: PT IS NON FASTING Performed By: #### B 2 GLYPROT XOCHITL, FACTOR II DNA, HOMOCYS PL, FACV LEIDM, PROCF, LIPA, LUPANTCOAG, PROT S FUN, METH, CARDIO GMA, AT3 DEF PROFILE #### [facility] , #### [id number], CBC, PHOS, BMP, FE PRO, MG #### [facility] [address] [place] [address] Factor II DNA Analysison Factor II, DNA Analysis Normal . [facility] Comment on above: Order Comment: PT IS NON FASTING Result Comment: NEGA TIVE No mutation identified. Comment: A point mutation ([id number]) in the factor II (prothrombin) gene is [...] mutations. This assay detects only the prothrombin [id number] mutation and does not measure genetic abnormalities [...] health care providers to discuss results at [phone] Methodology: DNA analysis of the Factor II gene was performed by PCR amplification followed by restriction analysis. The diagnostic sensitivity is >99% for both. All the tests must be combined with clinical information for the most accurate interpretation. Molecular-based testing is highly accurate, but as in any laboratory test, diagnostic errors may occur. This test was developed and its performance characteristics determined by [facility]. It has not been cleared or approved by the Food and Drug Administration. Poort SR, et al. Blood. 1996; 88:8198-9809. Arabella GILLIAM. Circulation. 2004; 110:e15-e18. Wanda I, et al. Arterioscler Thromb Vasc Biol. 1999; 19:700-703. Oanh Preciado, PhD, [facility] Marj Rosales, PhD, [facility] Mar Hernández, PhD, [facility] Ibeth Turk, PhD, [facility] Bree Arroyo, PhD, [facility] Amado Sanchez, PhD, [facility] Performed at: [facility] [address] [place], [place] [id number] Disaster Or Damage Control Specialist: Sabra Tariq [facility], Phone: [phone] PERFORMED BY: [place] [address] PATHOLOGIST SUPERVIS[employer] GRACIA M.D. Performed By: #### B 2 GLYPROT XOCHITL, FACTOR II DNA, HOMOCYS PL, FACV LEIDM, PROCF, LIPA, LUPANTCOAG, PROT S FUN, METH, CARDIO GMA, AT3 DEF PROFILE #### [facility] , #### [id number], CBC, PHOS, BMP, FE PRO, MG #### [address] Factor V Leiden Mutationon 0 07-18-2020 [...] the workup for venous thrombosis include the [id number] mutation in the factor II (prothrombin) gene, protein S and C deficiency, and antithrombin deficiencies. Anticardiolipin antibody and lupus anticoagulant analysis may be appropriate for certain patients, as well as homocysteine levels. Contact your local [facility] for information on how to order additional testing if desired. Genetic counselors are available for health care providers to discuss results at [phone] [phone] Methodology: DNA analysis of the Factor V gene was performed by allele- specific PCR. The diagnostic sensitivity and specificity is >99% for both. Molecular-based testing is highly accurate, but as in any laboratory test, diagnostic errors may occur. All test results must be combined with clinical information for the most accurate interpretation. This test was developed and its performance characteristics determined by [employer]. It has not been cleared or approved [...] AT3 DEF PROFILE #### [facility] , #### [id number], CBC, PHOS, BMP, FE PRO, MG #### [address] Homocysteine, Plasma/Serumon 07-18-2020 Homocysteine, Plasma/Serum 9.6 umol/L Normal 0.0-17.2 [facility] Comment on above: Order Comment: PT IS NON FASTING Result Comment: Perf ormed at: [facility] [id number] Disaster Or Damage Control Specialist: Prakash Barbour PhD, Phone: [phone] Performed By: #### B 2 GLYPROT XOCHITL, FACTOR II DNA, HOMOCYS PL, FACV LEIDM, PROCF, LIPA, LUPANTCOAG, PROT S FUN, METH, CARDIO GMA, AT3 DEF PROFILE #### [facility] , #### [id number], CBC, PHOS, BMP, FE PRO, MG #### [facility] [address] Lipoprotein (a)on 07-18-2020 Lipoprotein a [Mass/Vol] [...] factors on Lp(a) across ethnicities. Performed at: [address] [id number] Disaster Or Damage Control Specialist: Prakash Barbour PhD, Phone: [phone] Performed By: #### B 2 GLYPROT XOCHITL, FACTOR II DNA, HOMOCYS PL, FACV LEIDM, PROCF, LIPA, LUPANTCOAG, PROT S FUN, METH, CARDIO GMA, AT3 DEF PROFILE #### [facility] , #### [id number], CBC, PHOS, BMP, FE PRO, MG #### [address] Lupus Anticoagulant Compon 0 07-18-2020 Dilute Prothrombin Time (dPt) 74.8 High 0.0-55.0 [facility] Comment on above: Order Comment: PT IS NON FASTING Performed By: #### B 2 GLYPROT XOCHITL, FACTOR II DNA, HOMOCYS PL, FACV LEIDM, PROCF, LIPA, LUPANTCOAG, PROT S FUN, METH, CARDIO GMA, AT3 DEF PROFILE #### [facility] , #### [id number], CBC, PHOS, BMP, FE PRO, MG #### [address] dPT Confirm Ratio 0.95 Normal 0.00-1.40 [facility] Comment on above: Order Comment: PT IS NON FASTING Performed By: #### B 2 GLYPROT XOCHITL, FACTOR II DNA, HOMOCYS PL, FACV LEIDM, PROCF, LIPA, LUPANTCOAG, PROT S FUN, METH, CARDIO GMA, AT3 DEF PROFILE #### [facility] , #### [id number], CBC, PHOS, BMP, FE PRO, MG #### [address] DRVVT Lupus 41.8 Normal 0.0-47.0 [facility] Comment on above: Order Comment: PT IS NON FASTING Performed By: #### B 2 GLYPROT XOCHITL, FACTOR II DNA, HOMOCYS PL, FACV LEIDM, PROCF, LIPA, LUPANTCOAG, PROT S FUN, METH, CARDIO GMA, AT3 DEF PROFILE #### [facility] , #### [id number], CBC, PHOS, BMP, FE PRO, MG #### [address] Interpretation Comment: Normal . [facility] [...] should be interpreted with caution. Performed at: [address] [id number] Disaster Or Damage Control Specialist: Meet Parish MD, Phone: [phone] Performed By: #### B 2 GLYPROT XOCHITL, FACTOR II DNA, HOMOCYS PL, FACV LEIDM, PROCF, LIPA, LUPANTCOAG, PROT S FUN, METH, CARDIO GMA, AT3 DEF PROFILE #### [facility] , #### [id number], CBC, PHOS, BMP, FE PRO, MG #### [facility] [address] [place] [address] PTT-LA 32.2 Normal 0.0-51.9 [facility] Comment on above: Order Comment: PT IS NON FASTING Performed By: #### B 2 GLYPROT XOCHITL, FACTOR II DNA, HOMOCYS PL, FACV LEIDM, PROCF, LIPA, LUPANTCOAG, PROT S FUN, METH, CARDIO GMA, AT3 DEF PROFILE #### [facility] , #### [id number], CBC, PHOS, BMP, FE PRO, MG #### [address] [place] [address] [place] Thrombin Time 18.3 Normal 0.0-23.0 [facility] Comment on above: Order Comment: PT IS NON FASTING Performed By: #### B 2 GLYPROT XOCHITL, FACTOR II DNA, HOMOCYS PL, FACV LEIDM, PROCF, LIPA, LUPANTCOAG, PROT S FUN, METH, CARDIO GMA, AT3 DEF PROFILE #### [facility] , #### [id number], CBC, PHOS, BMP, FE PRO, MG #### [address] Magnesiumon 07-18-2020 Magnesium [Mass/Vol] 1.9 mg/dL Normal 1.6-2.6 [facility] Comment on above: Order Comment: PT IS NON FASTING Performed By: #### B 2 GLYPROT XOCHITL, FACTOR II DNA, HOMOCYS PL, FACV LEIDM, PROCF, LIPA, LUPANTCOAG, PROT S FUN, METH, CARDIO GMA, AT3 DEF PROFILE #### [facility] , #### [id number], CBC, PHOS, BMP, FE PRO, MG #### [facility] [address] [place] [address] Methylmalonic Acidon 021 Methylmalonic Acid 181 Normal 0-378 [facility] Comment on above: Order Comment: PT IS NON FASTING Performed By: #### B 2 GLYPROT XOCHITL, FACTOR II DNA, HOMOCYS PL, FACV LEIDM, PROCF, LIPA, LUPANTCOAG, PROT S FUN, METH, CARDIO GMA, AT3 DEF PROFILE #### [facility] , #### [id number], CBC, PHOS, BMP, FE PRO, MG #### [facility] [address] [place] [address] Methylmalonic Acid Disclaimer Normal . [facility] Comment on above: Order Comment: PT IS NON FASTING Result Comment: This test was developed and its performance characteristics determined by [employer]. It has not been cleared or approved by the Food and Drug Administration. Performed at: [facility] [id number] Disaster Or Damage Control Specialist: Meet Parish MD, Phone: [phone] Performed By: #### B 2 GLYPROT XOCHITL, FACTOR II DNA, HOMOCYS PL, FACV LEIDM, PROCF, LIPA, LUPANTCOAG, PROT S FUN, METH, CARDIO GMA, AT3 DEF PROFILE #### [facility] , #### [id number], CBC, PHOS, BMP, FE PRO, MG #### [facility] [address] [id number] [facility] Phosphoruson 07-18-2020 Phosphate [Mass/Vol] 3.7 mg/dL Normal 2.5-4.6 [facility] Comment on above: Order Comment: PT IS NON FASTING Performed By: #### B 2 GLYPROT XOCHITL, FACTOR II DNA, HOMOCYS PL, FACV LEIDM, PROCF, LIPA, LUPANTCOAG, PROT S FUN, METH, CARDIO GMA, AT3 DEF PROFILE #### [facility] , #### [id number], CBC, PHOS, BMP, FE PRO, MG #### [facility] [address] [id number] [facility] Protein C Functionalon 07-18 Protein C [...] the clinical scenario. Performed at: - [facility] [address] [id number] Disaster Or Damage Control Specialist: Meet Parish MD, Phone: [phone] Performed By: #### B 2 GLYPROT XOCHITL, FACTOR II DNA, HOMOCYS PL, FACV LEIDM, PROCF, LIPA, LUPANTCOAG, PROT S FUN, METH, CARDIO GMA, AT3 DEF PROFILE #### [facility] , #### [id number], CBC, PHOS, BMP, FE PRO, MG #### [facility] [address] Protein S Functionalon 07-18 Protein S [...] AT3 DEF PROFILE #### [facility] , #### [id number], CBC, PHOS, BMP, FE PRO, MG #### [facility] [address] Vit. B12/Folate Profileon Cobalamin (Vitamin B12) [Mass/Vol] 692 pg/mL Normal 180-914 [facility] Comment on above: Order Comment: PT IS NON FASTING Performed By: #### B 2 GLYPROT XOCHITL, FACTOR II DNA, HOMOCYS PL, FACV LEIDM, PROCF, LIPA, LUPANTCOAG, PROT S FUN, METH, CARDIO GMA, AT3 DEF PROFILE #### [facility] , #### [id number], CBC, PHOS, BMP, FE PRO, MG #### [address] Folate > 22.3 Normal >5.9 [facility] Comment on above: Order Comment: PT IS NON FASTING Result Comment: Claudine te reference range: >5.9 ng/ml The WHO technical consultation on folate and vitamin b12 deficiencies has determined that folate concentrations less than 4 ng/ml are considered deficient. PERFORMED BY: [place] [address] PATHOLOGIST [employer] TO[employer]IA M.D. Performed By: #### B 2 GLYPROT XOCHITL, FACTOR II DNA, HOMOCYS PL, FACV LEIDM, PROCF, LIPA, LUPANTCOAG, PROT S FUN, METH, CARDIO GMA, AT3 DEF PROFILE #### [facility] , #### [id number], CBC, PHOS, BMP, FE PRO, MG #### [facility] [address] POCT Glucoseon 04-13-2019 Glucose [Mass/Vol] 202 mg/dL Critically high 60-115 [facility] Comment on above: Performed By: #### P GLU #### [facility] [address] [place] [address] POC [facility] on [facility] Comment on above: Performed By: #### P GLU #### [facility] [address] [place] [address] Glucose [Mass/Vol] 202 mg/dL High 60 - 115 mg/dl [place] Interpretation and review of laboratory results Abnormal [place] [facility] [place] Glucose [Mass/Vol] 223 mg/dL Critically high 60-115 [facility] Comment on above: Performed By: #### P GLU #### [facility] [address] [place] [address] POC [facility] Comment on above: Performed By: #### P GLU #### [facility] [address] [facility] [address] Glucose [Mass/Vol] 223 mg/dL High 60 - 115 mg/dl [place] Interpretation and review of laboratory results Abnormal [place] [facility] [place] [facility] [place] PROTIME-INRon 04-13-2019 INR Coag (PPP) [Relative time] 2.3 {INR} [place] Comment on above: Warfarin Therapy INR Therapeutic: 2.0-3.0 With Mechanical Valve: >2.5 Low-intensity Therapeutic Range: 1.5-2.0 Mod-intensity Therapeutic Range: 2.0-3.0 High-intensity Therapeutic Range: 2.5-3.5 HIgh-intensity Therapeutic Range: 3.0-4.0 Common Critical/Alarm Value: 5.0 Common Upper Limit Reported: 10.0 Effective 11/26/2018: Please note methodology and/or reference ranges have changed. Interpretation and review of laboratory results Abnormal [place] PT Coag (PPP) [Time] 26.5 s [place] Comment on above: Effective 11/26/18 Please note methodology and/or reference ranges have changed. Prothrombin Timeon 9 INR Coag (PPP) [Relative time] 2.3 {INR} Normal [facility] Comment on above: Result Comment: Warf brian Therapy INR Therapeutic: 2.0-3.0 With Mechanical Valve: >2.5 Low-intensity Therapeutic Range: 1.5-2.0 Mod-intensity Therapeutic Range: 2.0-3.0 High-intensity Therapeutic Range: 2.5-3.5 HIgh-intensity Therapeutic Range: 3.0-4.0 Common Critical/Alarm Value: 5.0 Common Upper Limit Reported: 10.0 Effective 11/26/2018: Please note methodology and/or reference ranges have changed. Performed By: #### P GLU #### [facility] [address] [facility] [place] [address] PT Coag (PPP) [Time] 26.5 s Critically high 12.3-14.9 [facility] Comment on above: Result Comment: Effe ctive 11/26/18 Please note methodology and/or reference ranges have changed. Performed By: #### P GLU #### [facility] [address] [place] [address] POCT Glucoseon 04-12-2019 Glucose [Mass/Vol] 154 mg/dL Critically high 60-115 [facility] Comment on above: Performed By: #### P GLU #### [facility] [address] [place] [address] POC Performed on [facility] Normal [facility] Comment on above: Performed By: #### P GLU #### [facility] [address] [place] [address] Glucose [Mass/Vol] 154 mg/dL High 60 - 115 mg/dl [place] Interpretation and review of laboratory results Abnormal [place] Performed on [facility] [place] Glucose [Mass/Vol] 241 mg/dL Critically high 60-115 [facility] Comment on above: Performed By: #### P T #### [facility] [address] [place] [address] POC Performed on [facility] Normal [facility] Comment on above: Performed By: #### P T #### [facility] [address] [place] [address] Glucose [Mass/Vol] 241 mg/dL High 60 - 115 mg/dl [place] Interpretation and review of laboratory results Abnormal [place] Performed on [facility] [place] Glucose [Mass/Vol] 194 mg/dL Critically high 60-115 [facility] Comment on above: Performed By: #### P T #### [facility] [address] [place] [address] POC [facility] Comment on above: Performed By: #### P T #### [facility] [address] [place] [address] Glucose [Mass/Vol] 194 mg/dL High 60 - 115 mg/dl [place] Interpretation and review of laboratory results Abnormal [place] Performed [place] [facility] [place] Glucose [Mass/Vol] 228 mg/dL Critically high 60-115 [facility] Comment on above: Performed By: #### P T #### [facility] [address] [place] [address] POC [facility] on [facility] Comment on above: Performed By: #### P T #### [facility] [address] [place] [address] Glucose [Mass/Vol] 228 mg/dL High 60 - 115 mg/dl [place] Interpretation and review of laboratory results Abnormal [place] Performed [place] [facility] [place] PROTIME-INRon 04-12-2019 INR Coag (PPP) [Relative time] 2.1 {INR} [place] Comment on above: Warfarin Therapy INR Therapeutic: 2.0-3.0 With Mechanical Valve: >2.5 Low-intensity Therapeutic Range: 1.5-2.0 Mod-intensity Therapeutic Range: 2.0-3.0 High-intensity Therapeutic Range: 2.5-3.5 HIgh-intensity Therapeutic Range: 3.0-4.0 Common Critical/Alarm Value: 5.0 Common Upper Limit Reported: 10.0 Effective 11/26/2018: Please note methodology and/or reference ranges have changed. Interpretation and review of laboratory results Abnormal [facility], [place] PT Coag (PPP) [Time] 24.3 s [place] Comment on above: Effective 11/26/18 Please note methodology and/or reference ranges have changed. Prothrombin Timeon 9 INR Coag (PPP) [Relative time] 2.1 {INR} Normal [facility] Comment on above: Result Comment: Warf brian Therapy INR Therapeutic: 2.0-3.0 With Mechanical Valve: >2.5 Low-intensity Therapeutic Range: 1.5-2.0 Mod-intensity Therapeutic Range: 2.0-3.0 High-intensity Therapeutic Range: 2.5-3.5 HIgh-intensity Therapeutic Range: 3.0-4.0 Common Critical/Alarm Value: 5.0 Common Upper Limit Reported: 10.0 Effective 11/26/2018: Please note methodology and/or reference ranges have changed. Performed By: #### P T #### [facility] [address] [place] [address] PT Coag (PPP) [Time] 24.3 s Critically high 12.3-14.9 [facility] Comment on above: Result Comment: Effe ctive 11/26/18 Please note methodology and/or reference ranges have changed. Performed By: #### P T #### [facility] [address] [place] [address] POCT Glucoseon 04-11-2019 Glucose [Mass/Vol] 234 mg/dL Critically high 60-115 [facility] Comment on above: Performed By: #### P T #### [facility] [address] [place] [address] POC Performed on [facility]CHEK Normal [facility] Comment on above: Performed By: #### P T #### [facility] [address] [place] [address] Glucose [Mass/Vol] 234 mg/dL High 60 - 115 mg/dl [place] Interpretation and review of laboratory results Abnormal [place] Performed [place] [facility] [place] Glucose [Mass/Vol] 246 mg/dL Critically high 60-115 [facility] Comment on above: Performed By: #### P T #### [facility] [address] [place] [address] [facility]OC [facility] on above: Performed By: #### P T #### [facility] [address] [facility] [address] Glucose [Mass/Vol] 246 mg/dL High 60 - 115 mg/dl [place] Interpretation and review of laboratory results Abnormal [place] Performed [place] [facility] [place] Glucose [Mass/Vol] 258 mg/dL Critically high 60-115 [place] Comment on above: Performed By: #### P T #### [facility] [address] [facility] [address] Interpretation and review of laboratory results Abnormal [place] Performed [place] [facility] [place] Glucose [Mass/Vol] 249 mg/dL Critically high 60-115 [facility] Comment on above: Performed By: #### P T #### [facility] [address] [place] [address] POC [facility] Comment on above: Performed By: #### P T #### [facility] [address] [place] [address] Glucose [Mass/Vol] 249 mg/dL High 60 - 115 mg/dl [place] Interpretation and review of laboratory results Abnormal [place] Performed [place] [facility] [place] PROTIME-INRon 04-11-2019 INR Coag (PPP) [Relative time] 1.6 {INR} [place] Comment on above: Warfarin Therapy INR Therapeutic: 2.0-3.0 With Mechanical Valve: >2.5 Low-intensity Therapeutic Range: 1.5-2.0 Mod-intensity Therapeutic Range: 2.0-3.0 High-intensity Therapeutic Range: 2.5-3.5 HIgh-intensity Therapeutic Range: 3.0-4.0 Common Critical/Alarm Value: 5.0 Common Upper Limit Reported: 10.0 Effective 11/26/2018: Please note methodology and/or reference ranges have changed. Interpretation and review of laboratory results Abnormal [place] PT Coag (PPP) [Time] 19.6 s [place] Comment on above: Effective 11/26/18 Please note methodology and/or reference ranges have changed. Prothrombin Timeon 9 INR Coag (PPP) [Relative time] 1.6 {INR} Normal [facility] Comment on above: Result Comment: Warf brian Therapy INR Therapeutic: 2.0-3.0 With Mechanical Valve: >2.5 Low-intensity Therapeutic Range: 1.5-2.0 Mod-intensity Therapeutic Range: 2.0-3.0 High-intensity Therapeutic Range: 2.5-3.5 HIgh-intensity Therapeutic Range: 3.0-4.0 Common Critical/Alarm Value: 5.0 Common Upper Limit Reported: 10.0 Effective 11/26/2018: Please note methodology and/or reference ranges have changed. Performed By: #### P T #### [facility] [address] [facility] [address] PT Coag (PPP) [Time] 19.6 s Critically high 12.3-14.9 [facility] Comment on above: Result Comment: Effe ctive 11/26/18 Please note methodology and/or reference ranges have changed. Performed By: #### P T #### [facility] [address] [facility] [address] POCT Glucoseon 04-10-2019 Glucose [Mass/Vol] 290 mg/dL Critically high 60-115 [facility] Comment on above: Performed By: #### P T #### [facility] [address] [place] [address] POC Performed on [facility]CHEK Normal [facility] Comment on above: Performed By: #### P T #### [facility] [address] [place] [address] Glucose [Mass/Vol] 290 mg/dL High 60 - 115 mg/dl [place] Interpretation and review of laboratory results Abnormal [place] Performed [place] [facility] [place] Glucose [Mass/Vol] 337 mg/dL Critically high 60-115 [facility] Comment on above: Performed By: #### P GLU #### [facility] [address] [place] [address] POC Performed on [facility] Comment on above: Performed By: #### P GLU #### [facility] [address] [place] [address] Glucose [Mass/Vol] 337 mg/dL High 60 - 115 mg/dl [place] Interpretation and review of laboratory results Abnormal [place] Performed [place] [facility] [place] Glucose [Mass/Vol] 313 mg/dL Critically high 60-115 [facility] Comment on above: Performed By: #### P GLU #### [facility] [address] [place] [address] POC [facility] Comment on above: Performed By: #### P GLU #### [facility] [address] [place] [address] Glucose [Mass/Vol] 313 mg/dL High 60 - 115 mg/dl [place] Interpretation and review of laboratory results Abnormal [place] Performed [place] [facility] [place] Glucose [Mass/Vol] 309 mg/dL Critically high 60-115 [facility] Comment on above: Performed By: #### P GLU #### [facility] [address] [place] [address] POC Performed on ACCU-CHEK Normal [facility] Comment on above: Performed By: #### P GLU #### [facility] [address] [facility] [address] Glucose [Mass/Vol] 309 mg/dL High 60 - 115 mg/dl [place] Interpretation and review of laboratory results Abnormal [place] Performed [place] [facility] [place] PROTIME-INRon 04-10-2019 INR Coag (PPP) [Relative time] 1.1 {INR} [place] Comment on above: Warfarin Therapy INR Therapeutic: 2.0-3.0 With Mechanical Valve: >2.5 Low-intensity Therapeutic Range: 1.5-2.0 Mod-intensity Therapeutic Range: 2.0-3.0 High-intensity Therapeutic Range: 2.5-3.5 HIgh-intensity Therapeutic Range: 3.0-4.0 Common Critical/Alarm Value: 5.0 Common Upper Limit Reported: 10.0 Effective 11/26/2018: Please note methodology and/or reference ranges have changed. PT Coag (PPP) [Time] 14.7 s [place] Comment on above: Effective 11/26/18 Please note methodology and/or reference ranges have changed. Prothrombin Timeon 9 INR Coag (PPP) [Relative time] 1.1 {INR} Normal [facility] Comment on above: Result Comment: Warf brian Therapy INR Therapeutic: 2.0-3.0 With Mechanical Valve: >2.5 Low-intensity Therapeutic Range: 1.5-2.0 Mod-intensity Therapeutic Range: 2.0-3.0 High-intensity Therapeutic Range: 2.5-3.5 HIgh-intensity Therapeutic Range: 3.0-4.0 Common Critical/Alarm Value: 5.0 Common Upper Limit Reported: 10.0 Effective 11/26/2018: Please note methodology and/or reference ranges have changed. Performed By: #### P GLU #### [facility] [address] [facility] [address] PT Coag (PPP) [Time] 14.7 s Normal 12.3-14.9 [facility] Comment on above: Result Comment: Effe ctive 11/26/18 Please note methodology and/or reference ranges have changed. Performed By: #### P GLU #### [facility] [address] [place] [address] Basic Metabolic Panel Reflex Mgon 04-09-2019 Anion gap [Moles/Vol] 10 mmol/L Normal 9-15 [facility] Comment on above: Performed By: #### T S3C #### [facility] [address] [place] [address] Calcium [Mass/Vol] 8.2 mg/dL Low 8.5-9.9 [facility] Comment on above: Performed By: #### T S3C #### [facility] [address] [place] [address] Chloride [Moles/Vol] 98 mmol/L Normal 95-107 [facility] Comment on above: Performed By: #### T S3C #### [facility] [address] [place] [address] CO2 [Moles/Vol] 23 mmol/L Normal 20-31 [facility] Comment on above: Performed By: #### T S3C #### [facility] [address] [place] [address] Creatinine [Mass/Vol] 1.38 mg/dL Critically high 0.70-1.20 [facility] Comment on above: Performed By: #### T S3C #### [facility] [address] [place] [address] GFR/1.73 sq M predicted among blacks MDRD (S/P/Bld) [Vol rate/Area] mL/min/{1.73_m2} Normal >60 [facility] Comment on above: Result Comment: >60 mL/min/1.73m2 EGFR, calc. for ages 18 and older using the MDRD formula (not corrected for weight), is valid for stable renal function. Performed By: #### T S3C #### [facility] [address] [place] [address] GFR/1.73 sq M.predicted MDRD (S/P/Bld) [Vol rate/Area] 51.1 mL/min/{1.73_m2} Low >60 [facility] Comment on above: Result Comment: >60 mL/min/1.73m2 EGFR, calc. for ages 18 and older using the MDRD formula (not corrected for weight), is valid for stable renal function. Performed By: #### T S3C #### [facility] [address] [place] [address] Glucose [Mass/Vol] 266 mg/dL Critically high 70-99 [facility] Comment on above: Performed By: #### T S3C #### [facility] [address] [place] [address] Potassium reflex Mg 4.0 mEq/L Normal 3.4-4.9 [facility] Comment on above: Performed By: #### T S3C #### [facility] [address] [place] [address] Sodium [Moles/Vol] 131 mmol/L Low 135-144 [facility] Comment on above: Performed By: #### T S3C #### [facility] [address] [place] [address] Urea nitrogen [Mass/Vol] 13 mg/dL Normal 8-23 [facility] Comment on above: Performed By: #### T S3C #### [facility] [address] [place] [address] Basic Metabolic Panel w/ Ref anthony to MGon 04-09-2019 Anion gap [Moles/Vol] 10 mmol/L [facility] [place], [place] Calcium [Mass/Vol] 8.2 mg/dL Low 8.5 - 9.9 mg/dL [facility] [place], [place] Chloride [Moles/Vol] 98 mmol/L [facility] [place] CO2 [Moles/Vol] 23 mmol/L [facility] [place] Creatinine [Mass/Vol] 1.38 mg/dL High 0.7 - 1.2 mg/dL [place] GFR >60.0 >60 [place] Comment on above: >60 mL/min/1.73m2 EG FR, calc. for ages 18 and older using the MDRD formula (not corrected for weight), is valid for stable renal function. GFR Non- 51.1 Low >60 [place] Comment on above: >60 mL/min/1.73m2 EG FR, calc. for ages 18 and older using the MDRD formula (not corrected for weight), is valid for stable renal function. Glucose [Mass/Vol] 266 mg/dL High 70 - 99 mg/dL [place] Interpretation and review of laboratory results Abnormal [place] Potassium [Moles/Vol] 4.0 mmol/L [place] Sodium [Moles/Vol] 131 mmol/L Low [place] Urea nitrogen [Mass/Vol] 13 mg/dL 8 - 23 mg/dL [place] CBC With Platelet and Differ entialon 04-09-2019 Basophils (Bld) [#/Vol] 0.1 10*3/uL Normal 0.0-0.2 [facility] Comment on above: Performed By: #### T S3C #### [facility] [address] [place] [address] Basophils/100 WBC (Bld) 0.7 % Normal [facility] Comment on above: Performed By: #### T S3C #### [facility] [address] [place] [address] Eosinophils (Bld) [#/Vol] 0.5 10*3/uL Normal 0.0-0.7 [facility] Comment on above: Performed By: #### T S3C #### [facility] [address] [place] [address] Eosinophils/100 WBC (Bld) 5.9 % Normal [facility] Comment on above: Performed By: #### T S3C #### [facility] [address] [place] [address] Erythrocyte distribution width (RBC) [Ratio] 12.6 % Normal 11.5-14.5 [facility] Comment on above: Performed By: #### T S3C #### [facility] [address] [place] [address] Hematocrit (Bld) [Volume fraction] 31.5 % Low 42.0-52.0 [facility] Comment on above: Performed By: #### T S3C #### [facility] [address] [place] [address] Hemoglobin (Bld) [Mass/Vol] 10.6 g/dL Low 14.0-18.0 [facility] Comment on above: Performed By: #### T S3C #### [facility] [address] [place] [address] Lymphocytes (Bld) [#/Vol] 1.0 10*3/uL Normal 1.0-4.8 [facility] Comment on above: Performed By: #### T S3C #### [facility] [address] [place] [address] Lymphocytes/100 WBC (Bld) 12.8 % Normal [facility] Comment on above: Performed By: #### T S3C #### [facility] [address] [place] [address] MCH (RBC) [Entitic mass] 31.3 pg Normal 27.0-31.3 [facility] Comment on above: Performed By: #### T S3C #### [facility] [address] [place] [address] MCHC (RBC) [Mass/Vol] 33.8 % Normal 33.0-37.0 [facility] Comment on above: Performed By: #### T S3C #### [facility] [address] [place] [address] MCV (RBC) [Entitic vol] 92.8 fL Normal 80.0-100.0 [facility] Comment on above: Performed By: #### T S3C #### [facility] [address] [place] [address] Monocytes (Bld) [#/Vol] 0.7 10*3/uL Normal 0.2-0.8 [facility] Comment on above: Performed By: #### T S3C #### [facility] [address] [place] [address] Monocytes/100 WBC (Bld) 9.0 % Normal [facility] Comment on above: Performed By: #### T S3C #### [facility] [address] [place] [address] Neutrophils (Bld) [#/Vol] 5.8 10*3/uL Normal 1.4-6.5 [facility] Comment on above: Performed By: #### T S3C #### [facility] [address] [place] [address] Neutrophils/100 WBC (Bld) 71.6 % Normal [facility] Comment on above: Performed By: #### T S3C #### [facility] [address] [place] [address] Platelets (Bld) [#/Vol] 169 10*3/uL Normal 130-400 [facility] Comment on above: Performed By: #### T S3C #### [facility] [address] [place] [address] RBC (Bld) [#/Vol] 3.39 10*6/uL Low 4.70-6.10 [facility] Comment on above: Performed By: #### T S3C #### [facility] [address] [place] [address] WBC (Bld) [#/Vol] 8.1 10*3/uL Normal 4.8-10.8 [facility] Comment on above: Performed By: #### T S3C #### [facility] [address] [place] [address] CBC auto differentialon 11-2 2-2019 Basophils (Bld) [#/Vol] 0.1 10*3/uL 0 - 0.2 K/uL [place] Basophils/100 WBC (Bld) 0.7 % [place] Eosinophils (Bld) [#/Vol] 0.5 10*3/uL 0 - 0.7 K/uL [place] Eosinophils/100 WBC (Bld) 5.9 % [place] Erythrocyte distribution width (RBC) [Ratio] 12.6 % 11.5 - 14.5 % [place] Hematocrit (Bld) [Volume fraction] 31.5 % Low 42 - 52 % [place] Hemoglobin (Bld) [Mass/Vol] 10.6 g/dL Low 14 - 18 g/dL [place] Interpretation and review of laboratory results Abnormal [place] Lymphocytes (Bld) [#/Vol] 1.0 10*3/uL 1 - 4.8 K/uL [place] Lymphocytes/100 WBC (Bld) 12.8 % [place] MCH (RBC) [Entitic mass] 31.3 pg 27 - 31.3 pg [place] MCHC (RBC) [Mass/Vol] 33.8 % 33 - 37 % [place] MCV (RBC) [Entitic vol] 92.8 fL 80 - 100 fL [place] Monocytes (Bld) [#/Vol] 0.7 10*3/uL 0.2 - 0.8 K/uL [place] Monocytes/100 WBC (Bld) 9.0 % [place] Neutrophils Absolute 5.8 K/uL 1.4 - 6.5 K/uL [place] Neutrophils/100 WBC (Bld) 71.6 % [place] Platelets (Bld) [#/Vol] 169 10*3/uL 130 - 400 K/uL [place] RBC (Bld) [#/Vol] 3.39 10*6/uL Low [place] WBC (Bld) [#/Vol] 8.1 10*3/uL 4.8 - 10.8 K/uL [place] Lactic Acidon 11-22-2019 Lactate [Moles/Vol] 1.8 mmol/L Normal 0.5-2.2 [place] Comment on above: Performed By: #### P GLU #### [facility] [address] [place] [address] Lactate [Moles/Vol] 1.6 mmol/L Normal 0.5-2.2 [facility] Comment on above: Performed By: #### T S3C #### [facility] [address] [place] [address] Lactate [Moles/Vol] 1.4 mmol/L Normal 0.5-2.2 [facility] Comment on above: Performed By: #### T S3C #### [facility] [address] [place] [address] Lactic acid, plasmaon 2018 Lactate [Moles/Vol] 1.6 mmol/L 0.5 - 2.2 mmol/L [place] Lactate [Moles/Vol] 1.4 mmol/L 0.5 - 2.2 mmol/L [place] POCT Glucoseon 04-09-2019 Glucose [Mass/Vol] 379 mg/dL Critically high 60-115 [facility] Comment on above: Performed By: #### P GLU #### [facility] [address] [place] [address] POC Performed on ACCU-CHEK Normal [facility] Comment on above: Performed By: #### P GLU #### [facility] [address] [place] [address] Glucose [Mass/Vol] 379 mg/dL High 60 - 115 mg/dl [place] Interpretation and review of laboratory results Abnormal [place] Performed on ACCU-CHEK [place] Glucose [Mass/Vol] 329 mg/dL Critically high 60-115 [facility] Comment on above: Performed By: #### P GLU #### [facility] [address] [place] [address] POC Performed on ACCU-CHEK Normal [facility] Comment on above: Performed By: #### P GLU #### [facility] [address] [place] [address] Glucose [Mass/Vol] 329 mg/dL High 60 - 115 mg/dl [place] Interpretation and review of laboratory results Abnormal [place] [facility] [place] Glucose [Mass/Vol] 318 mg/dL Critically high 60-115 [facility] Comment on above: Performed By: #### P GLU #### [facility] [address] [place] [address] POC Performed on [facility] Comment on above: Performed By: #### P GLU #### [facility] [address] [place] [address] Glucose [Mass/Vol] 318 mg/dL High 60 - 115 mg/dl [place] Interpretation and review of laboratory results Abnormal [place] [facility] [place] [facility] [place] PROTIME-INRon 04-09-2019 INR Coag (PPP) [Relative time] 1.1 {INR} [place] Comment on above: Warfarin Therapy INR Therapeutic: 2.0-3.0 With Mechanical Valve: >2.5 Low-intensity Therapeutic Range: 1.5-2.0 Mod-intensity Therapeutic Range: 2.0-3.0 High-intensity Therapeutic Range: 2.5-3.5 HIgh-intensity Therapeutic Range: 3.0-4.0 Common Critical/Alarm Value: 5.0 Common Upper Limit Reported: 10.0 Effective 11/26/2018: Please note methodology and/or reference ranges have changed. PT Coag (PPP) [Time] 14.4 s [place] Comment on above: Effective 11/26/18 Please note methodology and/or reference ranges have changed. Procalcitoninon 04-09-2019 Procalcitonin 0.23 ng/mL Critically high 0.00-0.15 [facility] Comment on above: Result [...] failure. Performed By: #### T S3C #### [facility] [address] [place] [address] Interpretation and review of laboratory results Abnormal [place] Procalcitonin 0.23 ng/mL High 0 - 0.15 ng/mL [place] Comment on above: Reference Range: Adults: [...] Coag (PPP) [Relative time] 1.1 {INR} Normal [facility] Comment on above: Result Comment: Warf brian Therapy INR Therapeutic: 2.0-3.0 With Mechanical Valve: >2.5 Low-intensity Therapeutic Range: 1.5-2.0 Mod-intensity Therapeutic Range: 2.0-3.0 High-intensity Therapeutic Range: 2.5-3.5 HIgh-intensity Therapeutic Range: 3.0-4.0 Common Critical/Alarm Value: 5.0 Common Upper Limit Reported: 10.0 Effective 11/26/2018: Please note methodology and/or reference ranges have changed. Performed By: #### P GLU #### [facility] [address] [facility] [address] PT Coag (PPP) [Time] 14.4 s Normal 12.3-14.9 [facility] Comment on above: Result Comment: Effe ctive 11/26/18 Please note methodology and/or reference ranges have changed. Performed By: #### P GLU #### [facility] [address] [facility] [address] Urine Cultureon 04-09-2019 Bacteria identified Cx Nom (U) No growth [address] [facility] [place] OR DERED BY: JOSE DAVID DAMIAN SOURCE: Urine Clean Catch COLLECTED: 04/07/19 18:30 ANTIBIOTICS AT JIMENA.: RECEIVED : 04/07/19 21:[address] [facility] [address] BILIRUBIN TOTAL DIRECT & IND IRECTon 04-08-2019 Bilirubin Ql (U) 2.7 mg/dL High 0.2 - 0.7 mg/dL [facility] [place] Bilirubin, Indirect 2 mg/dL High 0 - 0.6 mg/dL [facility] [place] Bilirubin.direct [Mass/Vol] 0.7 mg/dL High 0 - 0.4 mg/dL [place] Interpretation and review of laboratory results Abnormal [place] Basic Metabolic Panel Reflex Mgon 04-08-2019 Anion gap [Moles/Vol] 9 mmol/L Normal 9-15 [facility] Comment on above: Performed By: #### A 1C #### [facility] [address] [place] [address] Calcium [Mass/Vol] 8.0 mg/dL Low 8.5-9.9 [facility] Comment on above: Performed By: #### A 1C #### [facility] [address] [place] [address] Chloride [Moles/Vol] 99 mmol/L Normal 95-107 [facility] Comment on above: Performed By: #### A 1C #### [facility] [address] [place] [address] CO2 [Moles/Vol] 23 mmol/L Normal 20-31 [facility] Comment on above: Performed By: #### A 1C #### [facility] [address] [place] [address] Creatinine [Mass/Vol] 1.77 mg/dL Critically high 0.70-1.20 [facility] Comment on above: Performed By: #### A 1C #### [facility] [address] [place] [address] GFR/1.73 sq M predicted among blacks MDRD (S/P/Bld) [Vol rate/Area] 46.4 mL/min/{1.73_m2} Low >60 [facility] Comment on above: Result Comment: >60 mL/min/1.73m2 EGFR, calc. for ages 18 and older using the MDRD formula (not corrected for weight), is valid for stable renal function. Performed By: #### A 1C #### [facility] [address] [place] [address] GFR/1.73 sq M.predicted MDRD (S/P/Bld) [Vol rate/Area] 38.4 mL/min/{1.73_m2} Low >60 [facility] Comment on above: Result Comment: >60 mL/min/1.73m2 EGFR, calc. for ages 18 and older using the MDRD formula (not corrected for weight), is valid for stable renal function. Performed By: #### A 1C #### [facility] [address] [place] [address] Glucose [Mass/Vol] 219 mg/dL Critically high 70-99 [facility] Comment on above: Performed By: #### A 1C #### [facility] [address] [place] [address] Potassium reflex Mg 4.8 mEq/L Normal 3.4-4.9 [facility] Comment on above: Performed By: #### A 1C #### [facility] [address] [place] [address] Sodium [Moles/Vol] 131 mmol/L Low 135-144 [facility] Comment on above: Performed By: #### A 1C #### [facility] [address] [place] [address] Urea nitrogen [Mass/Vol] 18 mg/dL Normal 8-23 [facility] Comment on above: Performed By: #### A 1C #### [facility] [address] [place] [address] Basic Metabolic Panel w/ Ref anthony to MGon 04-08-2019 Anion gap [Moles/Vol] 9 mmol/L [facility] [place] Calcium [Mass/Vol] 8.0 mg/dL Low 8.5 - 9.9 mg/dL [facility], [place] Chloride [Moles/Vol] 99 mmol/L [facility], [place] CO2 [Moles/Vol] 23 mmol/L [facility] [place] Creatinine [Mass/Vol] 1.77 mg/dL High 0.7 - 1.2 mg/dL [facility], [place] GFR 46.4 Low >[address] [facility] [place] Comment on above: >60 mL/min/1.73m2 EG FR, calc. for ages 18 and older using the MDRD formula (not corrected for weight), is valid for stable renal function. GFR Non- 38.4 Low >60 [place] Comment on above: >60 mL/min/1.73m2 EG FR, calc. for ages 18 and older using the MDRD formula (not corrected for weight), is valid for stable renal function. Glucose [Mass/Vol] 219 mg/dL High 70 - 99 mg/dL [place] Potassium [Moles/Vol] 4.8 mmol/L [place] Sodium [Moles/Vol] 131 mmol/L [place] Urea nitrogen [Mass/Vol] 18 mg/dL 8 - 23 mg/dL [place] Bilirubin Total, Direct, and Indirecton 04-08-2019 Bilirubin [Mass/Vol] 2.7 mg/dL Critically high 0.2-0.7 [facility] Comment on above: Performed By: #### B MP #### [facility] [address] [place] [address] Bilirubin Indirect 2.0 mg/dL Critically high 0.0-0.6 [facility] Comment on above: Performed By: #### B MP #### [facility] [address] [place] [address] Bilirubin.direct [Mass/Vol] 0.7 mg/dL Critically high 0.0-0.4 [facility] Comment on above: Performed By: #### B MP #### [facility] [address] [place] [address] CBC With Platelet and Differ entialon 04-08-2019 Basophils (Bld) [#/Vol] 0.1 10*3/uL Normal 0.0-0.2 [facility] Comment on above: Performed By: #### B MP #### [facility] [address] [place] [address] Basophils/100 WBC (Bld) 0.7 % Normal [facility] Comment on above: Performed By: #### B MP #### [facility] [address] [place] [address] Eosinophils (Bld) [#/Vol] 0.4 10*3/uL Normal 0.0-0.7 [facility] Comment on above: Performed By: #### B MP #### [facility] [address] [place] [address] Eosinophils/100 WBC (Bld) 3.5 % Normal [facility] Comment on above: Performed By: #### B MP #### [facility] [address] [place] [address] Erythrocyte distribution width (RBC) [Ratio] 12.7 % Normal 11.5-14.5 [facility] Comment on above: Performed By: #### B MP #### [facility] [address] [place] [address] Hematocrit (Bld) [Volume fraction] 34.0 % Low 42.0-52.0 [facility] Comment on above: Performed By: #### B MP #### [facility] [address] [place] [address] Hemoglobin (Bld) [Mass/Vol] 11.2 g/dL Low 14.0-18.0 [facility] Comment on above: Performed By: #### B MP #### [facility] [address] [place] [address] Lymphocytes (Bld) [#/Vol] 1.6 10*3/uL Normal 1.0-4.8 [facility] Comment on above: Performed By: #### B MP #### [facility] [address] [place] [address] Lymphocytes/100 WBC (Bld) 13.9 % Normal [facility] Comment on above: Performed By: #### B MP #### [facility] [address] [place] [address] MCH (RBC) [Entitic mass] 30.8 pg Normal 27.0-31.3 [facility] Comment on above: Performed By: #### B MP #### [facility] [address] [place] [address] MCHC (RBC) [Mass/Vol] 32.9 % Low 33.0-37.0 [facility] Comment on above: Performed By: #### B MP #### [facility] [address] [place] [address] MCV (RBC) [Entitic vol] 93.7 fL Normal 80.0-100.0 [facility] Comment on above: Performed By: #### B MP #### [facility] [address] [place] [address] Monocytes (Bld) [#/Vol] 1.1 10*3/uL Critically high 0.2-0.8 [facility] Comment on above: Performed By: #### B MP #### [facility] [address] [place] [address] Monocytes/100 WBC (Bld) 9.6 % Normal [facility] Comment on above: Performed By: #### B MP #### [facility] [address] [place] [address] Neutrophils (Bld) [#/Vol] 8.2 10*3/uL Critically high 1.4-6.5 [facility] Comment on above: Performed By: #### B MP #### [facility] [address] [place] [address] Neutrophils/100 WBC (Bld) 72.3 % Normal [facility] Comment on above: Performed By: #### B MP #### [facility] [address] [place] [address] Platelets (Bld) [#/Vol] 153 10*3/uL Normal 130-400 [facility] Comment on above: Performed By: #### B MP #### [facility] [address] [place] [address] RBC (Bld) [#/Vol] 3.63 10*6/uL Low 4.70-6.10 [facility] Comment on above: Performed By: #### B MP #### [facility] [address] [place] [address] WBC (Bld) [#/Vol] 11.4 10*3/uL Critically high 4.8-10.8 [facility] Comment on above: Performed By: #### B MP #### [facility] [address] [place] [address] CBC auto differentialon 03-20 Basophils (Bld) [#/Vol] 0.1 10*3/uL 0 - 0.2 K/uL [place] Basophils/100 WBC (Bld) 0.7 % [place] Eosinophils (Bld) [#/Vol] 0.4 10*3/uL 0 - 0.7 K/uL [place] Eosinophils/100 WBC (Bld) 3.5 % [place] Erythrocyte distribution width (RBC) [Ratio] 12.7 % 11.5 - 14.5 % [place] Hematocrit (Bld) [Volume fraction] 34.0 % Low 42 - 52 % [place] Hemoglobin (Bld) [Mass/Vol] 11.2 g/dL Low 14 - 18 g/dL [place] Interpretation and review of laboratory results Abnormal [place] Lymphocytes (Bld) [#/Vol] 1.6 10*3/uL 1 - 4.8 K/uL [place] Lymphocytes/100 WBC (Bld) 13.9 % [place] MCH (RBC) [Entitic mass] 30.8 pg 27 - 31.3 pg [place] MCHC (RBC) [Mass/Vol] 32.9 % Low 33 - 37 % [place] MCV (RBC) [Entitic vol] 93.7 fL 80 - 100 fL [place] Monocytes (Bld) [#/Vol] 1.1 10*3/uL High 0.2 - 0.8 K/uL [place] Monocytes/100 WBC (Bld) 9.6 % [place] Neutrophils Absolute 8.2 K/uL High 1.4 - 6.5 K/uL [place] Neutrophils/100 WBC (Bld) 72.3 % [place] Platelets (Bld) [#/Vol] 153 10*3/uL 130 - 400 K/uL [place] RBC (Bld) [#/Vol] 3.63 10*6/uL Low [place] WBC (Bld) [#/Vol] 11.4 10*3/uL High 4.8 - 10.8 K/uL [place] Culture, Respiratoryon 04-08 Culture, Respiratory ORDERED BY: SHANIKA JENNINGS SOURCE: Sputum Expectorated Mouth COLLECTED: 04/08/19 05:06 ANTIBIOTICS AT JIMENA.: RECEIVED : 04/08/19 05:06 Gram Stain Direct FINAL 04/08/19 08:03 Many WBC's Rare epithelial cells Few Budding yeast Culture, Respiratory FINAL 04/10/19 11:39 Usual respiratory rachel with Rare growth Yeast No further workup Normal [facility] Comment on above: Performed By: #### A 1C #### [facility] [address] [place] [facility] Hepatic function panelon Albumin [Mass/Vol] 2.8 g/dL Low 3.5 - 4.6 g/dL [place] ALP [Catalytic activity/Vol] 42 U/L 35 - 104 U/L [place] ALT [Catalytic activity/Vol] 28 U/L 0 - 41 U/L [place] AST [Catalytic activity/Vol] 17 U/L 0 - 40 U/L [place] Bilirubin Ql (U) 2.0 mg/dL High 0.2 - 0.7 mg/dL [place] Bilirubin, Indirect 1.4 mg/dL High 0 - 0.6 mg/dL [place] Bilirubin.direct [Mass/Vol] 0.6 mg/dL High 0 - 0.4 mg/dL [place] Protein [Mass/Vol] 5.4 g/dL Low 6.3 - 8 g/dL [place] Influenza A and Bon 04-08-20 Influenza A by PCR Negative Normal [facility] Comment on above: Result Comment: Effe ctive 01/07/19 Please note methodology and/or reference ranges have changed. Performed By: #### B MP #### [facility] [address] [facility] [address] Influenza B by PCR Negative Normal [facility] Comment on above: Result Comment: Effe ctive 01/07/19 Please note methodology and/or reference ranges have changed. Performed By: #### B MP #### [facility] [address] [facility] [address] Lactate, Sepsison 04-08-2019 Lactate, Sepsis 2.1 mmol/L Critically high 0.5-1.9 [facility] Comment on above: Performed By: #### A 1C #### [facility] [address] [facility] [address] Interpretation and review of laboratory results Abnormal [place] Lactic Acid, Sepsis 2.1 mmol/L High 0.5 - 1.9 mmol/L [place] Lactate, Sepsis 4.0 mmol/L Critically high 0.5-1.9 [facility] Comment on above: Order Comment: CALL Ruiz LC2W tel. [phone],Lactic Acid results called to and read back by Shaq Castillo RN, 04/08/2019 01:55,by CHARLEY Performed By: #### B MP #### [facility] [address] [facility] [address] Interpretation and review of laboratory results Abnormal [place] Lactic Acid, Sepsis 4.0 mmol/L Critically high 0.5 - 1.9 mmol/L [place] CALL Ruiz LC2W tel. [phone], Lactic Acid results called to and read back by Shaq Castillo RN, 04/08/2019 01:55, by CHARLEY [place] Lactic Acidon 04-08-2019 Lactate [Moles/Vol] 2.7 mmol/L Critically high 0.5-2.2 [place] Comment on above: Performed By: #### T S3C #### [facility] [address] [place] [address] Lactate [Moles/Vol] 1.6 mmol/L Normal 0.5-2.2 [facility] Comment on above: Performed By: #### A 1C #### [facility] [address] [place] [address] Lactic acid, plasmaon 2018 Lactate [Moles/Vol] 1.6 mmol/L 0.5 - 2.2 mmol/L [place] Liver Panelon 04-08-2019 Bilirubin Indirect 1.4 mg/dL Critically high 0.0-0.6 [facility] Comment on above: Performed By: #### A 1C #### [facility] [address] [place] [address] Albumin [Mass/Vol] 2.8 g/dL Low 3.5-4.6 [facility] Comment on above: Performed By: #### A 1C #### [facility] [address] [place] [address] ALP [Catalytic activity/Vol] 42 U/L Normal 35-104 [facility] Comment on above: Performed By: #### A 1C #### [facility] [address] [place] [address] ALT [Catalytic activity/Vol] 28 U/L Normal 0-41 [facility] Comment on above: Performed By: #### A 1C #### [facility] [address] [place] [address] AST [Catalytic activity/Vol] 17 U/L Normal 0-40 [facility] Comment on above: Performed By: #### A 1C #### [facility] [address] [place] [address] Bilirubin [Mass/Vol] 2.0 mg/dL Critically high 0.2-0.7 [facility] Comment on above: Performed By: #### A 1C #### [facility] [address] [place] [address] Bilirubin.direct [Mass/Vol] 0.6 mg/dL Critically high 0.0-0.4 [facility] Comment on above: Performed By: #### A 1C #### [facility] [address] [place] [address] Protein [Mass/Vol] 5.4 g/dL Low 6.3-8.0 [facility] Comment on above: Performed By: #### A 1C #### [facility] [address] [place] [address] MRI LUMBAR SPINE W WO CONTRA STon 04-08-2019 Phillip, Chpo Incoming R adiant Results From [employer] - 04/08/2019 1:24 PM EST Patient : [...] hematopoietic hyperplasia, leukemia, lymphoma or metastatic disease. [place] 1. Postcontrast enha ncement involving the [...] hematopoietic hyperplasia, leukemia, lymphoma or metastatic disease. [place] Patient 8 : 1950 Age: 68 [...] the superficial subcutaneous fatty tissues also identified. [place] Otheron 04-08-2019 Interpretation and review of laboratory results Abnormal [place] Interpretation and review of laboratory results Abnormal [place] POCT Glucoseon 04-08-2019 Glucose [Mass/Vol] 294 mg/dL Critically high 60-115 [facility] Comment on above: Performed By: #### T S3C #### [facility] [address] [place] [address] POC Performed on ACCU-CHEK Normal [facility] Comment on above: Performed By: #### T S3C #### [facility] [address] [place] [address] Glucose [Mass/Vol] 294 mg/dL High 60 - 115 mg/dl [place] Performed on ACCU-CHEK [place] Glucose [Mass/Vol] 301 mg/dL Critically high 60-115 [facility] Comment on above: Performed By: #### T S3C #### [facility] [address] [place] [address] POC Performed on ACCU-CHEK Normal [facility] Comment on above: Performed By: #### T S3C #### [facility] [address] [place] [address] Glucose [Mass/Vol] 301 mg/dL High 60 - 115 mg/dl [place] Interpretation and review of laboratory results Abnormal [place] Performed on ACCU-CHEK [place] Glucose [Mass/Vol] 210 mg/dL Critically high 60-115 [facility] Comment on above: Performed By: #### A 1C #### [facility] [address] [place] [address] POC Performed on [facility] Normal [facility] Comment on above: Performed By: #### A 1C #### [facility] [address] [place] [address] Glucose [Mass/Vol] 210 mg/dL High 60 - 115 mg/dl [place] Interpretation and review of laboratory results Abnormal [place] Performed on ACCU-CHEK [place] Glucose [Mass/Vol] 214 mg/dL Critically high 60-115 [facility] Comment on above: Performed By: #### A 1C #### [facility] [address] [place] [address] POC [facility] Comment on above: Performed By: #### A 1C #### [facility] [address] [place] [address] Glucose [Mass/Vol] 214 mg/dL High 60 - 115 mg/dl [place] Interpretation and review of laboratory results Abnormal [place] Performed on ACCU-CHEK [place] POCT Venouson 04-08-2019 Creatinine [Mass/Vol] 1.7 mg/dL Critically high 0.8-1.3 [facility] Comment on above: Performed By: #### B MP #### [facility] [address] [place] [address] GFR/1.73 sq M predicted among blacks MDRD (S/P/Bld) [Vol rate/Area] 49 mL/min/{1.73_m2} Abnormal >60 [facility] Comment on above: Result Comment: >60 mL/min/1.73m2 EGFR, calc. for ages 18 and older using the MDRD formula (not corrected for weight), is valid for stable renal function. Performed By: #### B MP #### [facility] [address] [place] [address] GFR/1.73 sq M.predicted MDRD (S/P/Bld) [Vol rate/Area] 40 mL/min/{1.73_m2} Abnormal >60 [facility] Comment on above: Result Comment: >60 mL/min/1.73m2 EGFR, calc. for ages 18 and older using the MDRD formula (not corrected for weight), is valid for stable renal function. Performed By: #### B MP #### [facility] [address] [place] [address] Glucose [Mass/Vol] 233 mg/dL Critically high 60-115 [facility] Comment on above: Performed By: #### B MP #### [facility] [address] [place] [address] Hematocrit (Bld) [Volume fraction] 33 % Low 41-53 [facility] Comment on above: Performed By: #### B MP #### [facility] [address] [place] [address] Hemoglobin (Bld) [Mass/Vol] 11.2 g/dL Low 13.5-17.5 [facility] Comment on above: Performed By: #### B MP #### [facility] [address] [place] [address] Oxygen saturation in Blood 42 % Normal Not Establ [facility] Comment on above: Performed By: #### B MP #### [facility] [address] [place] [address] POC Calciuim Ionized 1.05 mmol/L Low 1.12-1.32 [facility] Comment on above: Performed By: #### B MP #### [facility] [address] [place] [address] POC Cl 101 mEq/L Normal 99-110 [facility] Comment on above: Performed By: #### B MP #### [facility] [address] [place] [address] POC FIO2 28.000 Normal [facility] Comment on above: Performed By: #### B MP #### [facility] [address] [place] [address] POC K 4.4 mEq/L Normal 3.5-5.1 [facility] Comment on above: Performed By: #### B MP #### [facility] [address] [place] [address] POC Lactic Acid 3.67 mmol/L Critically high 0.40-2.00 [facility] Comment on above: Performed By: #### B MP #### [facility] [address] [place] [address] POC Na 133 mEq/L Low 136-145 [facility] Comment on above: Performed By: #### B MP #### [facility] [address] [place] [address] POC Performed on SEE BELOW Normal [facility] Comment on above: Result Comment: Perf ormed on POC Sample Type: Venous Oxygen Delivery System: Cannula Performed By: #### B MP #### [facility] [address] [place] [address] POC Sample Type ROMERO Normal [facility] Comment on above: Performed By: #### B MP #### [facility] [address] [place] [address] POC Venous Base Excess -6 Low -3-3 [facility] Comment on above: Performed By: #### B MP #### [facility] [address] [place] [address] POC Venous HCO3 20.7 mmol/L Low 23.0-29.0 [facility] Comment on above: Performed By: #### B MP #### [facility] [address] [place] [address] POC Venous PCO2 43.9 mm Hg Normal 40.0-50.0 [facility] Comment on above: Performed By: #### B MP #### [facility] [address] [place] [address] POC Venous pH 7.282 Low 7.350-7.45 [facility] Comment on above: Performed By: #### B MP #### [facility] [address] [place] [address] POC Venous PO2 27 mm Hg Normal Not [facility] Comment on above: Performed By: #### B MP #### [facility] [address] [place] [address] POC Venous Total CO2 22 mmol/L Normal Not [facility] Comment on above: Performed By: #### B MP #### [facility] [address] [place] [address] Prothrombin Timeon 9 INR Coag (PPP) [Relative time] 1.2 {INR} Normal [facility] Comment on above: Result Comment: Warf brian Therapy INR Therapeutic: 2.0-3.0 With Mechanical Valve: >2.5 Low-intensity Therapeutic Range: 1.5-2.0 Mod-intensity Therapeutic Range: 2.0-3.0 High-intensity Therapeutic Range: 2.5-3.5 HIgh-intensity Therapeutic Range: 3.0-4.0 Common Critical/Alarm Value: 5.0 Common Upper Limit Reported: 10.0 Effective 11/26/2018: Please note methodology and/or reference ranges have changed. Performed By: #### A 1C #### [facility] [address] [place] [address] PT Coag (PPP) [Time] 15.4 s Critically high 12.3-14.9 [facility] Comment on above: Result Comment: Effe ctive 11/26/18 Please note methodology and/or reference ranges have changed. Performed By: #### A 1C #### [facility] [address] [place] [address] Protime-INRon 04-08-2019 INR Coag (PPP) [Relative time] 1.2 {INR} [place] Comment on above: Warfarin Therapy INR Therapeutic: 2.0-3.0 With Mechanical Valve: >2.5 Low-intensity Therapeutic Range: 1.5-2.0 Mod-intensity Therapeutic Range: 2.0-3.0 High-intensity Therapeutic Range: 2.5-3.5 HIgh-intensity Therapeutic Range: 3.0-4.0 Common Critical/Alarm Value: 5.0 Common Upper Limit Reported: 10.0 Effective 11/26/2018: Please note methodology and/or reference ranges have changed. PT Coag (PPP) [Time] 15.4 s [place] Comment on above: Effective 11/26/18 Please note methodology and/or reference ranges have changed. XR CHEST PORTABLEon 04-08-20 19 Patient 8 : 1950 Age: 68 years Gender: Male Order Date: 04/07/2019 6:30 PM. Exam: XR CHEST PORTABLE Number of Views: 1 Indication: Fever Comparison: None. Findings: Cardiomediastinal silhouette is within normal limits. Lungs are clear without evidence of infiltrate/pneumonia, pneumothorax or pleural effusion [place], [place] Phillip, Woody Incoming R adiant Results From Geelbe/Pacs - 04/08/2019 7:15 AM EST Patient : 1950 Age: 68 years Gender: Male Order Date: 04/07/2019 6:30 PM. Exam: XR CHEST PORTABLE Number of Views: 1 Indication: Fever Comparison: None. Findings: Cardiomediastinal silhouette is within normal limits. Lungs are clear without evidence of infiltrate/pneumonia, pneumothorax or pleural effusion IMPRESSION: Impression: No radiographic evidence of acute cardiopulmonary disease [place] Impression: No radio graphic evidence of acute cardiopulmonary disease [place] APTTon 04-07-2019 aPTT Coag (Bld) [Time] 36.7 s [place] Comment on above: Effective 12/03/2018: Please note methodology and/or reference ranges have changed. aPTT - Heparin Therapeutic Range: 74.0 - 106 seconds Brain Natriuretic Peptideon 04-07-2019 Natriuretic peptide B (Bld) [Mass/Vol] 597 pg/mL [place] Comment on above: NT-pro BNP ACUTE [...] [#/Vol] 0.1 10*3/uL 0 - 0.2 K/uL [place] Basophils/100 WBC (Bld) 1.0 % [place] Eosinophils (Bld) [#/Vol] 0.4 10*3/uL 0 - 0.7 K/uL [place] Eosinophils/100 WBC (Bld) 3.1 % [place] Erythrocyte distribution width (RBC) [Ratio] 12.9 % 11.5 - 14.5 % [place] Hematocrit (Bld) [Volume fraction] 39.9 % Low 42 - 52 % [place] Hemoglobin (Bld) [Mass/Vol] 13.5 g/dL Low 14 - 18 g/dL [place] Interpretation and review of laboratory results Abnormal [place] Lymphocytes (Bld) [#/Vol] 1.6 10*3/uL 1 - 4.8 K/uL [place] Lymphocytes/100 WBC (Bld) 13.4 % [place] MCH (RBC) [Entitic mass] 30.7 pg 27 - 31.3 pg [place] MCHC (RBC) [Mass/Vol] 33.8 % 33 - 37 % [place] MCV (RBC) [Entitic vol] 90.7 fL 80 - 100 fL [place] Monocytes (Bld) [#/Vol] 0.9 10*3/uL High 0.2 - 0.8 K/uL [place] Monocytes/100 WBC (Bld) 7.9 % [place] Neutrophils Absolute 8.9 K/uL High 1.4 - 6.5 K/uL [place] Neutrophils/100 WBC (Bld) 74.6 % [place] Platelets (Bld) [#/Vol] 178 10*3/uL 130 - 400 K/uL [place] RBC (Bld) [#/Vol] 4.40 10*6/uL Low [place] WBC (Bld) [#/Vol] 11.9 10*3/uL High 4.8 - 10.8 K/uL [place] CBC With Platelet and Differ entialon 04-07-2019 Basophils (Bld) [#/Vol] 0.1 10*3/uL Normal 0.0-0.2 [facility] Comment on above: Performed By: #### C BCWD #### [facility] [address] [place] [address] Basophils/100 WBC (Bld) 1.0 % Normal [facility] Comment on above: Performed By: #### C BCWD #### [facility] [address] [place] [address] Eosinophils (Bld) [#/Vol] 0.4 10*3/uL Normal 0.0-0.7 [facility] Comment on above: Performed By: #### C BCWD #### [facility] [address] [place] [address] Eosinophils/100 WBC (Bld) 3.1 % Normal [facility] Comment on above: Performed By: #### C BCWD #### [facility] [address] [place] [address] Erythrocyte distribution width (RBC) [Ratio] 12.9 % Normal 11.5-14.5 [facility] Comment on above: Performed By: #### C BCWD #### [facility] [address] [place] [address] Hematocrit (Bld) [Volume fraction] 39.9 % Low 42.0-52.0 [facility] Comment on above: Performed By: #### C BCWD #### [facility] [address] [place] [address] Hemoglobin (Bld) [Mass/Vol] 13.5 g/dL Low 14.0-18.0 [facility] Comment on above: Performed By: #### C BCWD #### [facility] [address] [place] [address] Lymphocytes (Bld) [#/Vol] 1.6 10*3/uL Normal 1.0-4.8 [facility] Comment on above: Performed By: #### C BCWD #### [facility] [address] [place] [address] Lymphocytes/100 WBC (Bld) 13.4 % Normal [facility] Comment on above: Performed By: #### C BCWD #### [facility] [address] [place] [address] MCH (RBC) [Entitic mass] 30.7 pg Normal 27.0-31.3 [facility] Comment on above: Performed By: #### C BCWD #### [facility] [address] [place] [address] MCHC (RBC) [Mass/Vol] 33.8 % Normal 33.0-37.0 [facility] Comment on above: Performed By: #### C BCWD #### [facility] [address] [place] [address] MCV (RBC) [Entitic vol] 90.7 fL Normal 80.0-100.0 [facility] Comment on above: Performed By: #### C BCWD #### [facility] [address] [place] [address] Monocytes (Bld) [#/Vol] 0.9 10*3/uL Critically high 0.2-0.8 [facility] Comment on above: Performed By: #### C BCWD #### [facility] [address] [place] [address] Monocytes/100 WBC (Bld) 7.9 % Normal [facility] Comment on above: Performed By: #### C BCWD #### [facility] [address] [place] [address] Neutrophils (Bld) [#/Vol] 8.9 10*3/uL Critically high 1.4-6.5 [facility] Comment on above: Performed By: #### C BCWD #### [facility] [address] [place] [address] Neutrophils/100 WBC (Bld) 74.6 % Normal [facility] Comment on above: Performed By: #### C BCWD #### [facility] [address] [facility] [address] Platelets (Bld) [#/Vol] 178 10*3/uL Normal 130-400 [facility] Comment on above: Performed By: #### C BCWD #### [facility] [address] [facility] [place] [address] RBC (Bld) [#/Vol] 4.40 10*6/uL Low 4.70-6.10 [facility] Comment on above: Performed By: #### C BCWD #### [facility] [address] [facility] [place] [address] WBC (Bld) [#/Vol] 11.9 10*3/uL Critically high 4.8-10.8 [facility] Comment on above: Performed By: #### C BCWD #### [facility] [address] [place] [address] CKon 04-07-2019 Total CK 255 U/L High 0 - 190 U/L [facility], [place] CKMB & RELATIVE PERCENTon CK.MB [Mass/Vol] 0.7 % 0 - 3.5 % [place] CK.MB [Mass/Vol] 1.8 ng/mL 0 - 6.7 ng/mL [place] CKMB and Relative Percenton 04-07-2019 CK.MB [Mass/Vol] 0.7 % Normal 0.0-3.5 [facility] Comment on above: Performed By: #### B MP #### [facility] [address] [place] [address] CK.MB [Mass/Vol] 1.8 ng/mL Normal 0.0-6.7 [facility] Comment on above: Performed By: #### B MP #### [facility] [address] [place] [address] Comprehensive Metabolic Pane harmony 04-07-2019 Albumin [Mass/Vol] 3.7 g/dL Normal 3.5-4.6 [facility] Comment on above: Performed By: #### P T #### [facility] [address] [place] [address] ALP [Catalytic activity/Vol] 52 U/L Normal 35-104 [facility] Comment on above: Performed By: #### P T #### [facility] [address] [place] [address] ALT [Catalytic activity/Vol] 41 U/L Normal 0-41 [facility] Comment on above: Performed By: #### P T #### [facility] [address] [place] [address] Anion gap [Moles/Vol] 12 mmol/L Normal 9-15 [facility] Comment on above: Performed By: #### P T #### [facility] [address] [place] [address] AST [Catalytic activity/Vol] 27 U/L Normal 0-40 [facility] Comment on above: Performed By: #### P T #### [facility] [address] [place] [address] Bilirubin [Mass/Vol] 2.6 mg/dL Critically high 0.2-0.7 [facility] Comment on above: Performed By: #### P T #### [facility] [address] [place] [address] Calcium [Mass/Vol] 8.9 mg/dL Normal 8.5-9.9 [facility] Comment on above: Performed By: #### P T #### [facility] [address] [place] [address] Chloride [Moles/Vol] 93 mmol/L Low 95-107 [facility] Comment on above: Performed By: #### P T #### [facility] [address] [place] [address] CO2 [Moles/Vol] 23 mmol/L Normal 20-31 [facility] Comment on above: Performed By: #### P T #### [facility] [address] [place] [address] Creatinine [Mass/Vol] 1.97 mg/dL Critically high 0.70-1.20 [facility] Comment on above: Performed By: #### P T #### [facility] [address] [place] [address] GFR/1.73 sq M predicted among blacks MDRD (S/P/Bld) [Vol rate/Area] 41.0 mL/min/{1.73_m2} Low >60 [facility] Comment on above: Result Comment: >60 mL/min/1.73m2 EGFR, calc. for ages 18 and older using the MDRD formula (not corrected for weight), is valid for stable renal function. Performed By: #### P T #### [facility] [address] [place] [address] GFR/1.73 sq M.predicted MDRD (S/P/Bld) [Vol rate/Area] 33.9 mL/min/{1.73_m2} Low >60 [facility] Comment on above: Result Comment: >60 mL/min/1.73m2 EGFR, calc. for ages 18 and older using the MDRD formula (not corrected for weight), is valid for stable renal function. Performed By: #### P T #### [facility] [address] [place] [address] Globulin (S) [Mass/Vol] 3.0 g/dL Normal 2.3-3.5 [facility] Comment on above: Performed By: #### P T #### [facility] [address] [place] [address] Glucose [Mass/Vol] 281 mg/dL Critically high 70-99 [facility] Comment on above: Performed By: #### P T #### [facility] [address] [place] [address] Potassium [Moles/Vol] 5.9 mmol/L Critically high 3.4-4.9 [facility] Comment on above: Performed By: #### P T #### [facility] [address] [place] [address] Protein [Mass/Vol] 6.7 g/dL Normal 6.3-8.0 [facility] Comment on above: Performed By: #### P T #### [facility] [address] [place] [address] Sodium [Moles/Vol] 128 mmol/L Low 135-144 [facility] Comment on above: Performed By: #### P T #### [facility] [address] [place] [address] Urea nitrogen [Mass/Vol] 20 mg/dL Normal 8-23 [facility] Comment on above: Performed By: #### P T #### [facility] [address] [place] [address] Albumin [Mass/Vol] 3.7 g/dL 3.5 - 4.6 g/dL [place] ALP [Catalytic activity/Vol] 52 U/L 35 - 104 U/L [facility], [place] ALT [Catalytic activity/Vol] 41 U/L 0 - 41 U/L [place] Anion gap [Moles/Vol] 12 mmol/L [place] AST [Catalytic activity/Vol] 27 U/L 0 - 40 U/L [place] Bilirubin Ql (U) 2.6 mg/dL High 0.2 - 0.7 mg/dL [place] Calcium [Mass/Vol] 8.9 mg/dL 8.5 - 9.9 mg/dL [place] Chloride [Moles/Vol] 93 mmol/L Low [place] CO2 [Moles/Vol] 23 mmol/L [place] Creatinine [Mass/Vol] 1.97 mg/dL High 0.7 - 1.2 mg/dL [place] GFR 41 Low >60 [place] Comment on above: >60 mL/min/1.73m2 EG FR, calc. for ages 18 and older using the MDRD formula (not corrected for weight), is valid for stable renal function. GFR Non- 33.9 Low >60 [place] Comment on above: >60 mL/min/1.73m2 EG FR, calc. for ages 18 and older using the MDRD formula (not corrected for weight), is valid for stable renal function. Globulin (S) [Mass/Vol] 3 g/dL 2.3 - 3.5 g/dL [place] Glucose [Mass/Vol] 281 mg/dL High 70 - 99 mg/dL [place] Potassium [Moles/Vol] 5.9 mmol/L High [place] Protein [Mass/Vol] 6.7 g/dL 6.3 - 8 g/dL [place] Sodium [Moles/Vol] 128 mmol/L Low [place] Urea nitrogen [Mass/Vol] 20 mg/dL 8 - 23 mg/dL [place] Creatine Kinaseon 04-07-2019 CK [Catalytic activity/Vol] 255 U/L Critically high 0-190 [facility] Comment on above: Performed By: #### P T #### [facility] [address] [place] [address] Culture, Blood 2on 9 Culture, Blood 2 OR DERED BY: JOSE DAVID DAMIAN SOURCE: Blood COLLECTED: 04/07/19 18:56 ANTIBIOTICS AT JIMENA.: RECEIVED : 04/07/19 19:04 Culture, Blood 2 FINAL 04/12/19 20:15 No growth after 5 days of incubation. Normal [facility] Comment on above: Performed By: #### T S3C #### [facility] [address] [facility] [address] Culture, Urineon 04-07-2019 Culture, Urine OR DERED BY: JOSE DAVID DAMIAN SOURCE: Urine Clean Catch COLLECTED: 04/07/19 18:30 ANTIBIOTICS AT JIMENA.: RECEIVED : 04/07/19 21:27 Culture, Urine FINAL 04/09/19 10:13 No growth 24 hours Normal [facility] Comment on above: Performed By: #### P GLU #### [facility] [address] [facility] [address] Lactate, Sepsison 04-07-2019 Lactate, Sepsis 3.4 mmol/L Critically high 0.5-1.9 [facility] Comment on above: Order Comment: CALL [facility] tel. [phone],Lactic acid result called to and read back by ROSA Damian, 04/07/2019 19:56,by VIANEY Performed By: #### B MP #### [facility] [address] [facility] [address] Interpretation and review of laboratory results Abnormal [place] Lactic Acid, Sepsis 3.4 mmol/L Critically high 0.5 - 1.9 mmol/L [place] CALL [facility] tel. [phone], Lactic acid result called to and read back by ROSA Damian, 04/07/2019 19:56, by VIANEY [place] Lactic Acidon 04-07-2019 Lactate [Moles/Vol] 2.9 mmol/L Critically high 0.5-2.2 [facility] Comment on above: Performed By: #### B MP #### [facility] [address] [place] [address] Lactic Acid, Plasmaon 2018 Interpretation and review of laboratory results Abnormal [place] Lactate [Moles/Vol] 2.9 mmol/L High 0.5 - 2.2 mmol/L [place] Lipaseon 04-07-2019 Lipase [Catalytic activity/Vol] 25 U/L Normal 12-95 [facility] Comment on above: Performed By: #### P T #### [facility] [address] [place] [address] Lipase [Catalytic activity/Vol] 25 U/L 12 - 95 U/L [place] MRI LUMBAR SPINE W WO CONTRA [...] Fabio Bautista MD 04/08/19 Final result Normal [facility] Magnesiumon 04-07-2019 Magnesium [Mass/Vol] 1.7 mg/dL Normal 1.7-2.4 [facility] Comment on above: Performed By: #### P T #### [facility] [address] [place] [address] Magnesium [Mass/Vol] 1.7 mg/dL 1.7 - 2.4 mg/dL [place] Microscopic Urinalysison Bacteria, UA Negative /HPF [place] Epi Cells 0-2 [place] Hyaline Casts, UA 5-10 [place] RBC (U) [#/Vol] 0-2 [place] WBC, UA 0-2 [place] Otheron 04-07-2019 Interpretation and review of laboratory results Abnormal [place] Interpretation and review of laboratory results Abnormal [place] POCT Venouson 04-07-2019 Base Excess, Romero -6 Low [place] Calcium [Mass/Vol] 1.05 mmol/L Low 1.12 - 1.32 mmol/L [place] Chloride [Moles/Vol] 101 mmol/L [place] Creatinine [Mass/Vol] 1.7 mg/dL High 0.8 - 1.3 mg/dL [place] FIO2 28 [place] GFR 49 Abnormal >60 [place] Comment on above: >60 mL/min/1.73m2 EG FR, calc. for ages 18 and older using the MDRD formula (not corrected for weight), is valid for stable renal function. GFR Non- 40 Abnormal >60 [place] Comment on above: >60 mL/min/1.73m2 EG FR, calc. for ages 18 and older using the MDRD formula (not corrected for weight), is valid for stable renal function. Glucose [Mass/Vol] 233 mg/dL High 60 - 115 mg/dl [place] HCO3, Venous 20.7 mmol/L Low 23 - 29 mmol/L [place] Hematocrit (Bld) [Volume fraction] 33 % Low 41 - 53 % [place] Hemoglobin (Bld) [Mass/Vol] 11.2 g/dL Low [place] Interpretation and review of laboratory results Abnormal [place] Lactate [Moles/Vol] 3.67 mmol/L High 0.4 - 2 mmol/L [place] Oxygen saturation in Blood 42 % Not Established [place] pCO2, Romero 43.9 [place] Performed on SEE BELOW [place] Comment on above: Performed on POC Sample Type: Venous Oxygen Delivery System: Cannula pH, Romero 7.282 Low [place] pO2, Romero 27 Not Established mm Hg [place] Potassium [Moles/Vol] 4.4 mmol/L [place] Sample Type ROMERO [place] Sodium [Moles/Vol] 133 mmol/L Low [place] TC02 (Calc), Romero 22 mmol/L Not Established [place] Partial Thromboplastin Timeo n 04-07-2019 aPTT Coag (Bld) [Time] 36.7 s Normal 24.4-36.8 [facility] [facility] Comment on above: Result Comment: Effe ctive 12/03/2018: Please note methodology and/or reference ranges have changed. aPTT - Heparin Therapeutic Range: 74.0 - 106 seconds Performed By: #### P T #### [facility] [address] [place] [address] Procalcitoninon 04-07-2019 Procalcitonin 0.55 ng/mL Critically high 0.00-0.15 [facility] Comment on above: Result Comment: Refe gela [...] failure. Performed By: #### P T #### [facility] [address] [place] [address] Procalcitonin 0.55 ng/mL High 0 - 0.15 ng/mL [place], [place] Comment on above: Reference Range: Adults: [...] Coag (PPP) [Relative time] 1.2 {INR} Normal [facility] Comment on above: Result Comment: Warf brian Therapy INR Therapeutic: 2.0-3.0 With Mechanical Valve: >2.5 Low-intensity Therapeutic Range: 1.5-2.0 Mod-intensity Therapeutic Range: 2.0-3.0 High-intensity Therapeutic Range: 2.5-3.5 HIgh-intensity Therapeutic Range: 3.0-4.0 Common Critical/Alarm Value: 5.0 Common Upper Limit Reported: 10.0 Effective 11/26/2018: Please note methodology and/or reference ranges have changed. Performed By: #### P T #### [facility] [address] [place] [address] PT Coag (PPP) [Time] 15.7 s Critically high 12.3-14.9 [facility] Comment on above: Result Comment: Effe ctive 11/26/18 Please note methodology and/or reference ranges have changed. Performed By: #### P T #### [facility] [address] [place] [address] Protime-INRon 04-07-2019 INR Coag (PPP) [Relative time] 1.2 {INR} [place] Comment on above: Warfarin Therapy INR Therapeutic: 2.0-3.0 With Mechanical Valve: >2.5 Low-intensity Therapeutic Range: 1.5-2.0 Mod-intensity Therapeutic Range: 2.0-3.0 High-intensity Therapeutic Range: 2.5-3.5 HIgh-intensity Therapeutic Range: 3.0-4.0 Common Critical/Alarm Value: 5.0 Common Upper Limit Reported: 10.0 Effective 11/26/2018: Please note methodology and/or reference ranges have changed. Interpretation and review of laboratory results Abnormal [place] PT Coag (PPP) [Time] 15.7 s High [place] Comment on above: Effective 11/26/18 Please note methodology and/or reference ranges have changed. Rapid Influenza A/B Antigens on 04-07-2019 Influenza A by PCR Negative [place] Comment on above: Effective 01/07/19 Please note methodology and/or reference ranges have changed. Influenza B by PCR Negative [place] Comment on above: Effective 01/07/19 Please note methodology and/or reference ranges have changed. TSH w/out Reflexon 9 TSH Qn 4.350 uIU/mL Critically high 0.440-3.86 [facility] Comment on above: Performed By: #### P T #### [facility] [address] [place] [address] TSH without Reflexon 019 TSH Qn 4.350 m[IU]/L [place] Troponinon 04-07-2019 Troponin I.cardiac [Mass/Vol] ng/mL Normal 0.000-0.01 [facility] Comment on above: Result Comment: Meth odology by Troponin T. Performed By: #### P T #### [facility] [address] [place] [address] Troponin I.cardiac [Mass/Vol] ng/mL 0 - 0.01 ng/mL [place] Comment on above: Methodology by Sunday Muir Urinalysis Reflex to Culture on 04-07-2019 Bilirubin Urine SMALL Abnormal Negative [place] Blood, Urine Negative Negative [place] Clarity, UA Clear Clear [place] Color, UA ORANGE Abnormal Straw/Yellow [place] Glucose, Ur 250 mg/dL Abnormal Negative [place] Interpretation and review of laboratory results Abnormal [place] Ketones Ql (U) TRACE Abnormal Negative mg/dL [place] Leukocyte esterase Test strip Ql (U) Negative Negative [place] Nitrite, Urine Negative Negative [place] pH, UA 5.0 [place] Protein (U) [Mass/Vol] 30 mg/dL Abnormal Negative [place] Specific [place], UA 1.025 [place] Urine Reflex to Culture YES [place] Urobilinogen, Urine 1.0 <2.0 E.U./dL [place] Urinalysis, reflex to cultur fabiola 04-07-2019 Bilirubin Ql (U) SMALL Abnormal Negative [facility] Comment on above: Performed By: #### B MP #### [facility] [address] [place] [address] Clarity (U) Clear Normal Clear [facility] Comment on above: Performed By: #### B MP #### [facility] [address] [place] [address] Color (U) ORANGE Abnormal Straw/Green [facility] Comment on above: Performed By: #### B MP #### [facility] [address] [place] [address] Glucose Ql (U) 250 mg/dL Abnormal Negative [facility] Comment on above: Performed By: #### B MP #### [facility] [address] [place] [address] Hemoglobin Ql (U) Negative Normal Negative [facility] Comment on above: Performed By: #### B MP #### [facility] [address] [place] [address] Ketones Ql (U) TRACE Abnormal Negative [facility] Comment on above: Performed By: #### B MP #### [facility] [address] [place] [address] Leukocyte esterase Test strip Ql (U) Negative Normal Negative [facility] Comment on above: Performed By: #### B MP #### [facility] [address] [place] [address] Nitrite Ql (U) Negative Normal Negative [facility] Comment on above: Performed By: #### B MP #### [facility] [address] [place] [address] pH (U) 5.0 [pH] Normal 5.0-9.0 [facility] Comment on above: Performed By: #### B MP #### [facility] [address] [place] [address] Protein Ql (U) 30 mg/dL Abnormal Negative [facility] Comment on above: Performed By: #### B MP #### [facility] [address] [place] [address] Specific gravity (U) [Rel density] 1.025 Normal 1.005-1.03 [facility] Comment on above: Performed By: #### B MP #### [facility] [address] [place] [address] Urine Reflexed to Culture YES Normal [facility] Comment on above: Performed By: #### B MP #### [facility] [address] [place] [address] Urobilinogen Qn (U) 1.0 {Yared'U}/dL Normal < 2.0 [facility] Comment on above: Performed By: #### B MP #### [facility] [address] [place] [address] Urine Microscopicon 04-07-20 19 Bacteria LM.HPF (Urine sed) [#/Area] Negative Normal [facility] Comment on above: Performed By: #### B MP #### [facility] [address] [place] [address] RBC (U) [#/Vol] 0-2 Normal 0-5 [facility] Comment on above: Performed By: #### B MP #### [facility] [address] [place] [address] Urine Epithelial Cells Auto 0-2 Normal 0-5 [facility] Comment on above: Performed By: #### B MP #### [facility] [address] [place] [address] Urine Hyaline Casts Auto 5-10 Normal 0-5 [facility] Comment on above: Performed By: #### B MP #### [facility] [address] [place] [address] Urine WBC Auto 0-2 Normal 0-5 [facility] Comment on above: Performed By: #### B MP #### [facility] [address] [place] [address] XR CHEST PORTABLEon 04-07-20 19 XR CHEST [...] Fabio Bautista MD 04/08/19 Final result Normal [facility] proBNPon 04-07-2019 Natriuretic peptide B (Bld) [Mass/Vol] 597 pg/mL Normal [facility] Comment on above: Result Comment: NT-p ro [...] 2006;27:330-337 Performed By: #### P T #### [facility] [address] [facility] [address] [place] LESS THAN 1 HOURon 2018 [place] [...] Fabio Bautista MD 04/06/19 Final result Normal [facility] POCT Glucoseon 04-05-2019 Glucose [Mass/Vol] 164 mg/dL Critically high 60-115 [facility] Comment on above: Performed By: #### P GLU #### [facility] [address] [place] [address] POC Performed on ACCU-CHEK Normal [facility] Comment on above: Performed By: #### P GLU #### [facility] [address] [place] [address] Glucose [Mass/Vol] 164 mg/dL High 60 - 115 mg/dl [place] Interpretation and review of laboratory results Abnormal [place] Performed on ACCU-CHEK [place] Glucose [Mass/Vol] 189 mg/dL Critically high 60-115 [facility] Comment on above: Performed By: #### P GLU #### [facility] [address] [place] [address] POC Performed on ACCU-CHEK [facility] Comment on above: Performed By: #### P GLU #### [facility] [address] [place] [address] Glucose [Mass/Vol] 189 mg/dL High 60 - 115 mg/dl [place] Interpretation and review of laboratory results Abnormal [place] Performed on ACCU-CHEK [place] Prothrombin Timeon 9 INR Coag (PPP) [Relative time] 1.0 {INR} Normal [facility] Comment on above: Result Comment: Warf brian Therapy INR Therapeutic: 2.0-3.0 With Mechanical Valve: >2.5 Low-intensity Therapeutic Range: 1.5-2.0 Mod-intensity Therapeutic Range: 2.0-3.0 High-intensity Therapeutic Range: 2.5-3.5 HIgh-intensity Therapeutic Range: 3.0-4.0 Common Critical/Alarm Value: 5.0 Common Upper Limit Reported: 10.0 Effective 11/26/2018: Please note methodology and/or reference ranges have changed. Performed By: #### P T #### [facility] [address] [place] [address] PT Coag (PPP) [Time] 13.4 s Normal 12.3-14.9 [facility] Comment on above: Result Comment: Effe ctive 11/26/18 Please note methodology and/or reference ranges have changed. Performed By: #### P T #### [facility] [address] [place] [address] Protime-INRon 04-05-2019 INR Coag (PPP) [Relative time] 1.0 {INR} [place] Comment on above: Warfarin Therapy INR Therapeutic: 2.0-3.0 With Mechanical Valve: >2.5 Low-intensity Therapeutic Range: 1.5-2.0 Mod-intensity Therapeutic Range: 2.0-3.0 High-intensity Therapeutic Range: 2.5-3.5 HIgh-intensity Therapeutic Range: 3.0-4.0 Common Critical/Alarm Value: 5.0 Common Upper Limit Reported: 10.0 Effective 11/26/2018: Please note methodology and/or reference ranges have changed. PT Coag (PPP) [Time] 13.4 s [place] Comment on above: Effective 11/26/18 Please note methodology and/or reference ranges have changed. EKG 12 Leadon 04-01-2019 Atrial Rate 76 BPM [place] P [place] [address] [facility], [place] P-R Interval 178 ms [place] Q-T Interval [address] [facility] QRS Duration 80 ms [place] QTc Calculation (Bazett) 425 ms [place] R [place] -[address] [facility], [place] T [place] [address] [facility] Ventricular Rate 76 BPM [place] Normal sinus rhythm Cannot rule out Inferior infarct , age undetermined Abnormal ECG No previous ECGs available Confirmed by Juan Vitale ([id number]) on 04/01/2019 7:17:[address] [facility], [place] Phillip, Stevenpo Incoming R esults From [place] - 04/01/2019 7:18 AM EST Normal sinus rhythm Cannot rule out Inferior infarct , age undetermined Abnormal ECG No previous ECGs available Confirmed by Juan Vitale ([id number]) on 04/01/2019 7:17:[address] [facility], [place] Basic Metabolic Panelon 03-19 Calcium [Mass/Vol] 9.0 mg/dL Normal 8.5-9.9 [facility] Comment on above: Performed By: #### B MP #### [facility] [address] [place] [address] Chloride [Moles/Vol] 98 mmol/L Normal 95-107 [facility] Comment on above: Performed By: #### B MP #### [facility] [address] [place] [address] CO2 [Moles/Vol] 25 mmol/L Normal 20-31 [facility] Comment on above: Performed By: #### B MP #### [facility] [address] [place] [address] Creatinine [Mass/Vol] 1.72 mg/dL Critically high 0.70-1.20 [facility] Comment on above: Performed By: #### B MP #### [facility] [address] [place] [address] GFR/1.73 sq M predicted among blacks MDRD (S/P/Bld) [Vol rate/Area] 48.0 mL/min/{1.73_m2} Low >60 [facility] Comment on above: Result Comment: >60 mL/min/1.73m2 EGFR, calc. for ages 18 and older using the MDRD formula (not corrected for weight), is valid for stable renal function. Performed By: #### B MP #### [facility] [address] [place] [address] GFR/1.73 sq M.predicted MDRD (S/P/Bld) [Vol rate/Area] 39.7 mL/min/{1.73_m2} Low >60 [facility] Comment on above: Result Comment: >60 mL/min/1.73m2 EGFR, calc. for ages 18 and older using the MDRD formula (not corrected for weight), is valid for stable renal function. Performed By: #### B MP #### [facility] [address] [place] [address] Glucose [Mass/Vol] 367 mg/dL Critically high 70-99 [facility] Comment on above: Performed By: #### B MP #### [facility] [address] [place] [address] Potassium [Moles/Vol] 4.5 mmol/L Normal 3.4-4.9 [facility] Comment on above: Performed By: #### B MP #### [facility] [address] [place] [address] Sodium [Moles/Vol] 136 mmol/L Normal 135-144 [facility] Comment on above: Performed By: #### B MP #### [facility] [address] [place] [address] Urea nitrogen [Mass/Vol] 23 mg/dL Normal 8-23 [facility] Comment on above: Performed By: #### B MP #### [facility] [address] [place] [address] Anion gap [Moles/Vol] 13 mmol/L Normal 9-15 [facility] Comment on above: Performed By: #### B MP #### [facility] [address] [place] [address] Anion gap [Moles/Vol] 13 mmol/L [place] Calcium [Mass/Vol] 9.0 mg/dL 8.5 - 9.9 mg/dL [place] Chloride [Moles/Vol] 98 mmol/L [place] CO2 [Moles/Vol] 25 mmol/L [place] Creatinine [Mass/Vol] 1.72 mg/dL High 0.7 - 1.2 mg/dL [place] GFR 48 Low >60 [place] Comment on above: >60 mL/min/1.73m2 EG FR, calc. for ages 18 and older using the MDRD formula (not corrected for weight), is valid for stable renal function. GFR Non- 39.7 Low >60 [place] Comment on above: >60 mL/min/1.73m2 EG FR, calc. for ages 18 and older using the MDRD formula (not corrected for weight), is valid for stable renal function. Glucose [Mass/Vol] 367 mg/dL High 70 - 99 mg/dL [place] Interpretation and review of laboratory results Abnormal [place] Potassium [Moles/Vol] 4.5 mmol/L [place] Sodium [Moles/Vol] 136 mmol/L [place] Urea nitrogen [Mass/Vol] 23 mg/dL 8 - 23 mg/dL [place] CBCon 03-30-2019 Erythrocyte distribution width (RBC) [Ratio] 12.7 % 11.5 - 14.5 % [place] Hematocrit (Bld) [Volume fraction] 42.4 % 42 - 52 % [place] Hemoglobin (Bld) [Mass/Vol] 14.3 g/dL 14 - 18 g/dL [place] Interpretation and review of laboratory results Abnormal [place] MCH (RBC) [Entitic mass] 30.8 pg 27 - 31.3 pg [place] MCHC (RBC) [Mass/Vol] 33.7 % 33 - 37 % [place] MCV (RBC) [Entitic vol] 91.3 fL 80 - 100 fL [place] Platelets (Bld) [#/Vol] 213 10*3/uL 130 - 400 K/uL [place] RBC (Bld) [#/Vol] 4.65 10*6/uL Low [place] WBC (Bld) [#/Vol] 8.2 10*3/uL 4.8 - 10.8 K/uL [place] CBC With Platelet No Differe ntialon 03-30-2019 Erythrocyte distribution width (RBC) [Ratio] 12.7 % Normal 11.5-14.5 [facility] Comment on above: Performed By: #### C BCND #### [facility] [address] [place] [address] Hematocrit (Bld) [Volume fraction] 42.4 % Normal 42.0-52.0 [facility] Comment on above: Performed By: #### C BCND #### [facility] [address] [place] [address] Hemoglobin (Bld) [Mass/Vol] 14.3 g/dL Normal 14.0-18.0 [facility] Comment on above: Performed By: #### C BCND #### [facility] [address] [place] [address] MCH (RBC) [Entitic mass] 30.8 pg Normal 27.0-31.3 [facility] Comment on above: Performed By: #### C BCND #### [facility] [address] [place] [address] MCHC (RBC) [Mass/Vol] 33.7 % Normal 33.0-37.0 [facility] Comment on above: Performed By: #### C BCND #### [facility] [address] [place] [address] MCV (RBC) [Entitic vol] 91.3 fL Normal 80.0-100.0 [facility] Comment on above: Performed By: #### C BCND #### [facility] [address] [place] [address] Platelets (Bld) [#/Vol] 213 10*3/uL Normal 130-400 [facility] Comment on above: Performed By: #### C BCND #### [facility] [address] [place] [address] RBC (Bld) [#/Vol] 4.65 10*6/uL Low 4.70-6.10 [facility] Comment on above: Performed By: #### C BCND #### [facility] [address] [place] [address] WBC (Bld) [#/Vol] 8.2 10*3/uL Normal 4.8-10.8 [facility] Comment on above: Performed By: #### C BCND #### [facility] [address] [place] [address] Hemoglobin A1Con 03-30-2019 HbA1c (Bld) [Mass fraction] 9.8 % High 4.8 - 5.9 % [place] Interpretation and review of laboratory results Abnormal [place] Hemoglobin A1con 03-30-2019 HbA1c (Bld) [Mass fraction] 9.8 % Critically high 4.8-5.9 [facility] Comment on above: Performed By: #### A 1C #### [facility] [address] [place] [address] Prothrombin Timeon 9 INR Coag (PPP) [Relative time] 1.9 {INR} Normal [facility] Comment on above: Result Comment: Warf brian Therapy INR Therapeutic: 2.0-3.0 With Mechanical Valve: >2.5 Low-intensity Therapeutic Range: 1.5-2.0 Mod-intensity Therapeutic Range: 2.0-3.0 High-intensity Therapeutic Range: 2.5-3.5 HIgh-intensity Therapeutic Range: 3.0-4.0 Common Critical/Alarm Value: 5.0 Common Upper Limit Reported: 10.0 Effective 11/26/2018: Please note methodology and/or reference ranges have changed. Performed By: #### P T #### [facility] [address] [place] [address] PT Coag (PPP) [Time] 22.6 s Critically high 12.3-14.9 [facility] Comment on above: Result Comment: Effe ctive 11/26/18 Please note methodology and/or reference ranges have changed. Performed By: #### P T #### [facility] [address] [place] [address] Protime-INRon 03-30-2019 INR Coag (PPP) [Relative time] 1.9 {INR} [place] Comment on above: Warfarin Therapy INR Therapeutic: 2.0-3.0 With Mechanical Valve: >2.5 Low-intensity Therapeutic Range: 1.5-2.0 Mod-intensity Therapeutic Range: 2.0-3.0 High-intensity Therapeutic Range: 2.5-3.5 HIgh-intensity Therapeutic Range: 3.0-4.0 Common Critical/Alarm Value: 5.0 Common Upper Limit Reported: 10.0 Effective 11/26/2018: Please note methodology and/or reference ranges have changed. Interpretation and review of laboratory results [facility] ([facility] [Time] 22.6 s High [facility] Comment on above: Effective 11/26/18 Please note methodology and/or reference ranges have changed. TYPE AND SCREENon 03-30-2019 ABO/Rh Positive [facility] Type and Screen Capture 3 sc rn cellon 03-30-2019 Type and Screen Capture 3 scrn cell PATIENT: ABRAHAM Shrestha LOC: [facility] BILL# : [id number] : 1950 SEX: M ORDERED BY: HAYDER Orourke ORDERED : 03/30/2019 12:58 COLLECTED: 03/30/2019 13:32 ORDER : [id number] RECEIVED : 03/30/2019 13:32 TEST NAME RESULT UNITS RANGES ABN [place] ST ABORH Capture A POS F Antibody 3 Cell Scrn Captu NEG F Normal [facility] Comment on above: Performed By: #### T S3C #### [facility] [address] [place] [id number] 166-23 CBC AND DIFFERENTIALon 04-08 % AUTOMATED IMMATURE GRAN Canceled Normal [facility] Comment on above: Order Comment: TEST CBC AND DIFFERENTIAL WAS CANCELLED, 04/08/2018 04:30 ?Cancel Reason:Patient Discharged. Result Comment: Perc ent differential counts (%) should be interpreted in the context of the absolute cell counts (cells/L). Performed By: #### C BC ####[id number] [place] [address] % NEUTROPHIL Canceled Normal [facility] Comment on above: Order Comment: TEST CBC AND DIFFERENTIAL WAS CANCELLED, 04/08/2018 04:30 ?Cancel Reason:Patient Discharged. Performed By: #### C BC ####[id number] [place] [address] Basophils/100 WBC Auto (Bld) Canceled Normal [facility] Comment on above: Order Comment: TEST CBC AND DIFFERENTIAL WAS CANCELLED, 04/08/2018 04:30 ?Cancel Reason:Patient Discharged. Performed By: #### C BC ####[id number] [place] [address] DIFFERENTIAL Canceled Normal [facility] Comment on above: Order Comment: TEST CBC AND DIFFERENTIAL WAS CANCELLED, 04/08/2018 04:30 ?Cancel Reason:Patient Discharged. Performed By: #### C BC ####[id number] [place] [address] Eosinophils Auto #/vol (Bld) Canceled Normal [facility] Comment on above: Order Comment: TEST CBC AND DIFFERENTIAL WAS CANCELLED, 04/08/2018 04:30 ?Cancel Reason:Patient Discharged. Performed By: #### C BC ####[id number] [place] [address] Eosinophils/100 WBC Auto (Bld) Canceled Normal [facility] Comment on above: Order Comment: TEST CBC AND DIFFERENTIAL WAS CANCELLED, 04/08/2018 04:30 ?Cancel Reason:Patient Discharged. Performed By: #### C BC ####[id number] [place] [address] Erythrocyte distribution width Auto Ratio (RBC) Canceled Normal [facility] Comment on above: Order Comment: TEST CBC AND DIFFERENTIAL WAS CANCELLED, 04/08/2018 04:30 ?Cancel Reason:Patient Discharged. Performed By: #### C BC ####[id number] [place] [address] Hematocrit Auto Volume Fraction (Bld) Canceled Normal [facility] Comment on above: Order Comment: TEST CBC AND DIFFERENTIAL WAS CANCELLED, 04/08/2018 04:30 ?Cancel Reason:Patient Discharged. Performed By: #### C BC ####[id number] [place] [address] Hemoglobin mass conc (Bld) Canceled Normal [facility] Comment on above: Order Comment: TEST CBC AND DIFFERENTIAL WAS CANCELLED, 04/08/2018 04:30 ?Cancel Reason:Patient Discharged. Performed By: #### C BC ####[id number] [place] [address] Lymphocytes Auto #/vol (Bld) Canceled Normal [facility] Comment on above: Order Comment: TEST CBC AND DIFFERENTIAL WAS CANCELLED, 04/08/2018 04:30 ?Cancel Reason:Patient Discharged. Performed By: #### C BC ####[id number] [place] [address] Lymphocytes/100 WBC Auto (Bld) Canceled Normal [facility] Comment on above: Order Comment: TEST CBC AND DIFFERENTIAL WAS CANCELLED, 04/08/2018 04:30 ?Cancel Reason:Patient Discharged. Performed By: #### C BC ####[id number] [place] [address] MCHC Auto mass conc (RBC) Canceled Normal [facility] Comment on above: Order Comment: TEST CBC AND DIFFERENTIAL WAS CANCELLED, 04/08/2018 04:30 ?Cancel Reason:Patient Discharged. Performed By: #### C BC ####[id number] [place] [address] MCV Auto Entitic volume (RBC) Canceled Normal [facility] Comment on above: Order Comment: TEST CBC AND DIFFERENTIAL WAS CANCELLED, 04/08/2018 04:30 ?Cancel Reason:Patient Discharged. Performed By: #### C BC ####[id number] [place] [address] Monocytes Auto #/vol (Bld) Canceled Normal [facility] Comment on above: Order Comment: TEST CBC AND DIFFERENTIAL WAS CANCELLED, 04/08/2018 04:30 ?Cancel Reason:Patient Discharged. Performed By: #### C BC ####[id number] [place] [address] Neutrophils Auto #/vol (Bld) Canceled Normal [facility] Comment on above: Order Comment: TEST CBC AND DIFFERENTIAL WAS CANCELLED, 04/08/2018 04:30 ?Cancel Reason:Patient Discharged. Performed By: #### C BC ####[id number] [place] [address] Nucleated RBC/100 WBC Ratio (Bld) Canceled Normal [facility] [facility] Comment [facility]: Order Comment: TEST CBC AND DIFFERENTIAL WAS CANCELLED, 04/08/2018 04:30 ?Cancel Reason:Patient Discharged. Performed By: #### C BC ####[id number] [place] [address] Platelets Auto #/vol (Bld) Canceled Normal [facility] Comment on above: Order Comment: TEST CBC AND DIFFERENTIAL WAS CANCELLED, 04/08/2018 04:30 ?Cancel Reason:Patient Discharged. Performed By: #### C BC ####[id number] [place] [address] RBC Auto #/vol (Bld) Canceled Normal [facility] Comment on above: Order Comment: TEST CBC AND DIFFERENTIAL WAS CANCELLED, 04/08/2018 04:30 ?Cancel Reason:Patient Discharged. Performed By: #### C BC ####[id number] [place] [address] WBC Auto #/vol (Bld) Canceled Normal [facility] Comment on above: Order Comment: TEST CBC AND DIFFERENTIAL WAS CANCELLED, 04/08/2018 04:30 ?Cancel Reason:Patient Discharged. Performed By: #### C BC ####[id number] [place] [address] MAGNESIUMon 04-08-2018 Magnesium mass conc Canceled Normal [facility] Comment on above: Order Comment: TEST MAGNESIUM WAS CANCELLED, 04/08/2018 04:30 ?Cancel Reason: PatientDischarged. Performed By: #### C BC ####[id number] [place] [address] PT/INRon 04-08-2018 INR Coag RelTime (PPP) Canceled Normal [facility] Comment on above: Order Comment: TEST PT/INR WAS CANCELLED, 04/08/2018 04:30 ?Cancel Reason: PatientDischarged. Performed By: #### C BC ####[id number] [place] [address] Prothrombin time (PT) Coag time (PPP) Canceled Normal [facility] Comment on above: Order Comment: TEST PT/INR WAS CANCELLED, 04/08/2018 04:30 ?Cancel Reason: PatientDischarged. Result Comment: Note new reference range as of 03/10/2018. Performed By: #### C BC ####[id number] [place] [address] RENAL FUNCTION PANELon 04-08 Albumin mass conc Canceled Normal [facility] Comment on above: Order Comment: TEST RENAL FUNCTION PANEL WAS CANCELLED, 04/08/2018 04:30 ?Cancel Reason:Patient Discharged. Performed By: #### C BC ####[id number] [place] [address] Anion gap 3 molar conc Canceled Normal [facility] Comment on above: Order Comment: TEST RENAL FUNCTION PANEL WAS CANCELLED, 04/08/2018 04:30 ?Cancel Reason:Patient Discharged. Performed By: #### C BC ####[id number] [place] [address] Calcium mass conc Canceled Normal [facility] Comment on above: Order Comment: TEST RENAL FUNCTION PANEL WAS CANCELLED, 04/08/2018 04:30 ?Cancel Reason:Patient Discharged. Performed By: #### C BC ####[id number] [place] [address] Chloride molar conc Canceled Normal [facility] Comment on above: Order Comment: TEST RENAL FUNCTION PANEL WAS CANCELLED, 04/08/2018 04:30 ?Cancel Reason:Patient Discharged. Performed By: #### C BC ####[id number] [place] [address] Creatinine mass conc Canceled Normal [facility] Comment on above: Order Comment: TEST RENAL FUNCTION PANEL WAS CANCELLED, 04/08/2018 04:30 ?Cancel Reason:Patient Discharged. Performed By: #### C BC ####[id number] [place] [address] GFR- AM. Canceled Normal [facility] Comment on above: Order Comment: TEST RENAL FUNCTION PANEL WAS CANCELLED, 04/08/2018 04:30 ?Cancel Reason:Patient Discharged. Result Comment: CALC ULATIONS OF ESTIMATED GFR ARE PERFORMED USING THE MDRD STUDY EQUATION FOR THE IDMS-TRACEABLE CREATININE METHODS. CLIN CHEM 2007;53:766-72 Performed By: #### C BC ####[id number] [place] [address] GFR-NON AM. Canceled Normal [facility] Comment on above: Order Comment: TEST RENAL FUNCTION PANEL WAS CANCELLED, 04/08/2018 04:30 ?Cancel Reason:Patient Discharged. Performed By: #### C BC ####[id number] [place] [address] Glucose mass conc Canceled Normal [facility] Comment on above: Order Comment: TEST RENAL FUNCTION PANEL WAS CANCELLED, 04/08/2018 04:30 ?Cancel Reason:Patient Discharged. Performed By: #### C BC ####[id number] [place] [address] HCO3 molar conc (Bld) Canceled Normal [facility] Comment on above: Order Comment: TEST RENAL FUNCTION PANEL WAS CANCELLED, 04/08/2018 04:30 ?Cancel Reason:Patient Discharged. Performed By: #### C BC ####[id number] [place] [address] Phosphate mass conc Canceled Normal [facility] Comment on above: Order Comment: TEST RENAL FUNCTION PANEL WAS CANCELLED, 04/08/2018 04:30 ?Cancel Reason:Patient Discharged. Result Comment: The performance characteristics of phosphorus testing in heparinized plasma have been validated by the individual laboratory site where testing is performed. Testing on heparinized plasma is not approved by the FDA; however, such approval is not necessary. Performed By: #### C BC ####[id number] [place] [address] Potassium molar conc Canceled Normal [facility] Comment on above: Order Comment: TEST RENAL FUNCTION PANEL WAS CANCELLED, 04/08/2018 04:30 ?Cancel Reason:Patient Discharged. Performed By: #### C BC ####[id number] [place] [address] Sodium molar conc Canceled Normal [facility] Comment on above: Order Comment: TEST RENAL FUNCTION PANEL WAS CANCELLED, 04/08/2018 04:30 ?Cancel Reason:Patient Discharged. Performed By: #### C BC ####[id number] [place] [address] Urea nitrogen mass conc Canceled Normal [facility] Comment on above: Order Comment: TEST RENAL FUNCTION PANEL WAS CANCELLED, 04/08/2018 04:30 ?Cancel Reason:Patient Discharged. Performed By: #### C BC ####[id number] [place] [address] CBCon 04-07-2018 Erythrocyte distribution width Auto Ratio (RBC) 13.1 % Normal 11.5 - 14.5 [facility] Comment on above: Performed By: #### C BC ####[id number] [place] [address] Hematocrit Auto Volume Fraction (Bld) 31.1 % Low 41.0 - 52.0 [facility] Comment on above: Performed By: #### C BC ####[id number] [place] [address] Hemoglobin mass conc (Bld) 10.3 g/dL Low 13.5 - 17.5 [facility] Comment on above: Performed By: #### C BC ####[id number] [place] [address] MCHC Auto mass conc (RBC) 33.1 g/dL Normal 32.0 - 36.0 [facility] Comment on above: Performed By: #### C BC ####[id number] [place] [address] MCV Auto Entitic volume (RBC) 93 fL Normal 80 - 100 [facility] Comment on above: Performed By: #### C BC ####[id number] [place] [address] Nucleated RBC/100 WBC Ratio (Bld) 0.0 /100 WBC Normal 0.0-0.0 [facility] Comment on above: Performed By: #### C BC ####[id number] [place] [address] Platelets Auto #/vol (Bld) 330 10*3/uL Normal 150 - 450 [facility] Comment on above: Performed By: #### C BC ####[id number] [place] [address] RBC Auto #/vol (Bld) 3.34 x10E12/L Low 4.50 - 5.90 [facility] Comment on above: Performed By: #### C BC ####[id number] [place] [address] WBC Auto #/vol (Bld) 11.8 10*3/uL High 4.4 - 11.3 [facility] Comment on above: Performed By: #### C BC ####[id number] [place] [address] Daily Progress Note-Cardiac Surgeryon 04-07-2018 Protein mass conc Service: Cardiac 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 Overnight Events: Patient had an uneventful night.Additional Information:No complaints today, patient eager to go home, feeling well. Objective Data: Objective Information: T TWQFDsN6Amyrs26.91312047/6195% Date/Time04/07 11: 11: 11: 11: 11:00Range(36C - 36.5C ) (67 - 84 ) (16 - 20 ) (105 - 136 )/ (61 - 84 ) (93% -98% ) Pain with Activity reported at 04/07 11:00: 0Pain at Rest reported at 04/07 11:00: 0 Bwxorlb35/20 2:51: Weight in kg (Weight (kg)) 107. 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 Ptpresented to [facility] with chest pressure and dyspnea. He as found to havebilat PEs, was started on Heparin gtt, and transferred to [facility]. He wasfound to have a troponin leak at 2.25. Cardiology was consulted and the patientwas diagnosed with ACS, NSTEMI. He underwent a TTE and cath. He had normal EF,mild AI, and triple vessel CAD so was transferred to [facility] for CABG eval.Pulm consulted for PE workup. Pt required unfractionated heparin infusion for7-10 days to take advantage of intrinsic fibrinolysis and clot stabilization,as well as an IVC filter.Endocrine consulted for evaluation of Shasta disease and treatment periop.Also managed DM. 03/23/2018 [...] lauren- daily renal panel Endo - h/o Shasta's disease, DM, hypothyroidism- Appreciate endo recs, now have signed off as of 04/04- hydrocortisone taper ordered as per Endo recs for Brigida's- starting fludrocortisone 4 days per week on 04/06 as per Endo recs forAddison's- adjusted DM regimen as per Endo recs- continue levothyroxine- DM diet, accuchecks, SSI- 04/07 peer educator met with patient to go over [...] discharge today, as INR is therapeutic- plan [facility] coumadin clinic under software applications engineer Dr Pisano- plan homebound teacher and PT Plan of care discussed with Dr. Gaston Signature/Cosignature/Attestat ion:Provider/Team Contact Info-Pager Numbercardiac surgery [phone] Electronic Signatures:Alexandra Milligan (PAC) (Signed 07-Apr-2018 14:05)Authored: Service, Subjective Data, Objective Data, Assessment and Plan,Signature/Cosignature/Att estation Last Updated: 07-Apr-2018 14:05 by Alexandra Milligan (PAC) Normal [facility] GLUCOSE-POCTon 04-07-2018 Glucose mass conc 123 mg/dL High 74 - 99 [facility] Comment on above: Performed By: #### C BC ####[id number] [place] [address] Glucose mass conc 232 mg/dL High 74 - 99 [facility] Comment on above: Performed By: #### C BC ####[id number] [place] [address] HEPARIN ASSAY,UFHon 04-07-20 18 HEPARIN ASSAY,UFH Canceled Normal [facility] Comment on above: Order Comment: TEST HEPARIN ASSAY,UFH WAS CANCELLED, 04/06/2018 04:14 ?Cancel Reason:Discontinued. Result Comment: The therapeutic reference range for UFH may be either 0.3-0.6 IU/mL or 0.3-0.7 IU/mL based on the clinical setting for anticoagulant therapy and the associated nomogram used. For heparin dosing guidelines based on clinical scenario and Heparin Assay results, please refer to local Pharmacy and the [facility] Guidelines for Anticoagulation therapy available on the [facility] intranet at:[email or web address]_Guidelines_for_[email or web address].aspx Performed By: #### C BC ####[id number] [place] [address] Order Comment: TEST HEPARIN ASSAY,UFH WAS CANCELLED, 04/07/2018 04:44 ?Cancel Reason:Discontinued. HEPARIN ASSAY,UFH 0.6 IU/mL Normal [facility] Comment on above: Result Comment: The therapeutic reference range for UFH may be either 0.3-0.6 IU/mL or 0.3-0.7 IU/mL based on the clinical setting for anticoagulant therapy and the associated nomogram used. For heparin dosing guidelines based on clinical scenario and Heparin Assay results, please refer to local Pharmacy and the [facility] Guidelines for Anticoagulation therapy available on the [facility] intranet at:[email or web address]_[email or web address] Performed By: #### C BC ####[id number] [place] [address] MAGNESIUMon 04-07-2018 Magnesium mass conc 1.85 mg/dL Normal 1.60 - 2.40 [facility] Comment on above: Performed By: #### C BC ####[id number] [place] [address] PT/INRon 04-07-2018 INR Coag RelTime (PPP) 2.0 {INR} High 0.9 - 1.1 [facility] Comment on above: Performed By: #### C BC ####[id number] [place] [address] Prothrombin time (PT) Coag time (PPP) 22.4 s High 9.7 - 12.7 [facility] Comment on above: Result Comment: Note new reference range as of 03/10/2018. Performed By: #### C BC ####[id number] [place] [address] RENAL FUNCTION PANELon 04-07 Albumin mass conc 3.3 g/dL Low 3.4 - 5.0 [facility] Comment on above: Performed By: #### C BC ####[id number] [place] [address] Anion gap 3 molar conc 11 mmol/L Normal 10 - 20 [facility] Comment on above: Performed By: #### C BC ####[id number] [place] [address] Calcium mass conc 8.9 mg/dL Normal 8.6 - 10.6 [facility] Comment on above: Performed By: #### C BC ####[id number] [place] [address] Chloride molar conc 100 mmol/L Normal 98 - 107 [facility] Comment on above: Performed By: #### C BC ####[id number] [place] [address] Creatinine mass conc 1.38 mg/dL High 0.50 - 1.30 [facility] Comment on above: Performed By: #### C BC ####[id number] [place] [address] GFR- AM. 62 mL/min/1.73m2 Normal >60 [facility] Comment on above: Result Comment: CALC ULATIONS OF ESTIMATED GFR ARE PERFORMED USING THE MDRD STUDY EQUATION FOR THE IDMS-TRACEABLE CREATININE METHODS. CLIN CHEM 2007;53:766-72 Performed By: #### C BC ####[id number] [place] [address] GFR-NON AM. 51 mL/min/1.73m2 Abnormal >60 [facility] Comment on above: Performed By: #### C BC ####[id number] [place] [address] Glucose mass conc 121 mg/dL High 74 - 99 [facility] Comment on above: Performed By: #### C BC ####[id number] [place] [address] HCO3 molar conc (Bld) 30 mmol/L Normal 21 - 32 [facility] Comment on above: Performed By: #### C BC ####[id number] [place] [address] Phosphate mass conc 4.7 mg/dL Normal 2.5 - 4.9 [facility] Comment on above: Result Comment: The performance characteristics of phosphorus testing in heparinized plasma have been validated by the individual laboratory site where testing is performed. Testing on heparinized plasma is not approved by the FDA; however, such approval is not necessary. Performed By: #### C BC ####[id number] [place] [address] Potassium molar conc 4.2 mmol/L Normal 3.5 - 5.3 [facility] Comment on above: Performed By: #### C BC ####[id number] [place] [address] Sodium molar conc 137 mmol/L Normal 136 - 145 [facility] Comment on above: Performed By: #### C BC ####[id number] [place] [address] Urea nitrogen mass conc 26 mg/dL High 6 - 23 [facility] Comment on above: Performed By: #### C BC ####[id number] [place] [address] CBCon 04-06-2018 Erythrocyte distribution width Auto Ratio (RBC) 13.0 % Normal 11.5 - 14.5 [facility] Comment on above: Performed By: #### C BC ####[id number] [place] [address] Hematocrit Auto Volume Fraction (Bld) 31.7 % Low 41.0 - 52.0 [facility] Comment on above: Performed By: #### C BC ####[id number] [place] [address] Hemoglobin mass conc (Bld) 10.6 g/dL Low 13.5 - 17.5 [facility] Comment on above: Performed By: #### C BC ####[id number] [place] [address] MCHC Auto mass conc (RBC) 33.4 g/dL Normal 32.0 - 36.0 [facility] Comment on above: Performed By: #### C BC ####[id number] [place] [address] MCV Auto Entitic volume (RBC) 92 fL Normal 80 - 100 [facility] Comment on above: Performed By: #### C BC ####[id number] [place] [address] Nucleated RBC/100 WBC Ratio (Bld) 0.0 /100 WBC Normal 0.0-0.0 [facility] Comment on above: Performed By: #### C BC ####[id number] [place] [address] Platelets Auto #/vol (Bld) 304 10*3/uL Normal 150 - 450 [facility] Comment on above: Performed By: #### C BC ####[id number] [place] [address] RBC Auto #/vol (Bld) 3.44 x10E12/L Low 4.50 - 5.90 [facility] Comment on above: Performed By: #### C BC ####[id number] [place] [address] WBC Auto #/vol (Bld) 12.3 10*3/uL High 4.4 - 11.3 [facility] Comment on above: Performed By: #### C BC ####[id number] [place] [address] COAGULATION SCREENon 04-06- 018 aPTT Coag time (Bld) 105 s Critically high 28 - 38 [facility] Comment on above: Order Comment: APTT CALLED RB TO ASHWIN JIANG 04/06/2018 05:23 Result Comment: Note new reference range as of 03/10/2018. THE APTT IS NO LONGER USED FOR MONITORING UNFRACTIONATED HEPARIN THERAPY. FOR MONITORING HEPARIN THERAPY, USE THE HEPARIN ASSAY..APTT CALLED RB TO ASHWIN JIANG , 04/06/2018 05:23 Performed By: #### C BC ####[id number] [place] [address] INR Coag RelTime (PPP) 1.5 {INR} High 0.9 - 1.1 [facility] Comment on above: Order Comment: APTT CALLED RB TO ASHWIN JIANG , 04/06/2018 05:23 Performed By: #### C BC ####[id number] [place] [address] Prothrombin time (PT) Coag time (PPP) 16.5 s High 9.7 - 12.7 [facility] Comment on above: Order Comment: APTT CALLED RB TO ASHWIN JIANG , 04/06/2018 05:23 Result Comment: Note new reference range as of 03/10/2018. Performed By: #### C BC ####[id number] [place] [address] Daily Progress Note-Cardiac Surgeryon 04-06-2018 Protein mass conc Service: Cardiac [facility] Subjective Data:DON ELKINS is a 67 year old Male who is Hospital Day # 20 and POD #6 for CABGx 3;-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 Overnight Events: Patient had an uneventful night. Objective Data: Objective Information: ---- Intake and Output -----Mn/Dy/Year TimeIntakeOutputNetNov 2017 6:00 [id number] 2017 10:00 [id number] 2017 2:00 [id number] The Intake and Output Totals for the last 24 hours are:DikqpfAyxslfFqq4406132-766 1 Intake Output Enteral - Oral 120 mL Urine 2725 mL Medicated IV Drips 434 mL T GCJPAbY1Ngyls94.24963376/7394% Date/Time04/06 6:5511/19 6: 6: 6: 6:55Range(35.9C - 36.6C ) (65 - 77 ) (18 - 20 ) (111 - 132 )/ (67 - 76 ) (92%- 96% ) Ukeckun93/19 3:28: Weight in kg (Weight (kg)) 75913/19 3:28: Weight in lbs ((lbs)) 238.3 Physical [...] Insulin Glargine (Lantus) Injectable: 20 unit(s) SubCutaneous XlHncqgok97. Insulin Lispro (HumaLOG) Injectable: 6 unit(s) SubCutaneous [...] Water Injectable: 25 gram(s) IntraVenous Push Every 50Mksmbhz4. Glucagon Injectable: 1 mg IntraMuscular Every 15 Minutes4. Ondansetron Injectable: 4 mg IntraVenous Push Every 6 Hours5. 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 Ptpresented to [facility] with chest pressure and dyspnea. He as found to havebilat PEs, was started on Heparin gtt, and transferred to [facility]. He wasfound to have a troponin leak at 2.25. Cardiology was consulted and the patientwas diagnosed with ACS, NSTEMI. He underwent a TTE and cath. He had normal EF,mild AI, and triple vessel CAD so was transferred to [facility] for CABG eval.Pulm consulted for PE workup. Pt required unfractionated heparin infusion for7-10 days to take advantage of intrinsic fibrinolysis and clot stabilization,as well as an IVC filter.Endocrine consulted for evaluation of Shasta disease and treatment periop.Also managed DM. 03/23/2018 [...] lauren- daily renal panel Endo - h/o Shasta's disease, DM, hypothyroidism- Appreciate endo recs, now have signed off as of 04/04- hydrocortisone taper ordered as per Endo recs for Shasta's- starting fludrocortisone 4 days per week on [...] PT- anticipate discharge when INR therapeutic- plan [facility] coumadin clinic under software applications engineer Dr Pisano- plan homebound teacher and PT- continue to assess discharge needs Signature/Cosignature/Attestat ion:Provider/Team Contact Info-Pager Numbercardiac surgery [phone] Electronic Signatures:Mary Munroe (SENIOR SYSTEMS ENGINEER-SURGICAL SUPERVISOR) (Signed 06-Apr-2018 18:26)Authored: Service, Subjective Data, Objective Data, Assessment and Plan,Signature/Cosignature/Att estation Last Updated: 06-Apr-2018 18:26 by Mary Munroe (SENIOR SYSTEMS ENGINEER-SURGICAL SUPERVISOR) Normal [facility] GLUCOSE-POCTon 04-06-2018 Glucose mass conc 303 mg/dL High 74 - 99 [facility] Comment on above: Performed By: #### C BC ####[id number] [place] [address] Glucose mass conc 290 mg/dL High 74 - 99 [facility] Comment on above: Performed By: #### C BC ####[id number] [place] [address] Glucose mass conc 268 mg/dL High 74 - 99 [facility] Comment on above: Performed By: #### C BC ####[id number] [place] [address] Glucose mass conc 118 mg/dL High 74 - 99 [facility] Comment on above: Performed By: #### C BC ####[id number] [place] [address] HEPARIN ASSAY,UFHon 04-06-20 18 HEPARIN ASSAY,UFH 0.5 IU/mL Normal [facility] Comment on above: Result Comment: The therapeutic reference range for UFH may be either 0.3-0.6 IU/mL or 0.3-0.7 IU/mL based on the clinical setting for anticoagulant therapy and the associated nomogram used. For heparin dosing guidelines based on clinical scenario and Heparin Assay results, please refer to local Pharmacy and [facility] Guidelines for Anticoagulation therapy available on the [facility] intranet at:[email or web address]_Guidelines_[email or web address] Performed By: #### C BC ####[id number] [place] [address] HEPARIN ASSAY,UFH 0.7 IU/mL Normal [facility] Comment on above: Result Comment: The therapeutic reference range for UFH may be either 0.3-0.6 IU/mL or 0.3-0.7 IU/mL based on the clinical setting for anticoagulant therapy and the associated nomogram used. For heparin dosing guidelines based on clinical scenario and Heparin Assay results, please refer to local Pharmacy and [facility] Guidelines for Anticoagulation therapy available on the [facility] intranet at:[email or web address]_Guidelines_for_[email or web address] Performed By: #### C BC ####[id number] [place] [address] HEPARIN ASSAY,UFH Canceled Normal [facility] Comment on above: Order Comment: TEST HEPARIN [...] please refer to local Pharmacy and the [facility] Guidelines for Anticoagulation therapy available on the [facility] intranet at:[email or web address]_Guidelines_for_[email or web address].aspx Performed By: #### C BC ####[id number] [id number] HEPARIN ASSAY,UFH Canceled Normal [facility] Comment on above: Order Comment: TEST HEPARIN ASSAY,UFH WAS CANCELLED, 04/06/2018 09:52 NO SPECIMEN RECEIVEDIN LAB. Result Comment: The therapeutic reference range for UFH may be either 0.3-0.6 IU/mL or 0.3-0.7 IU/mL based on the clinical setting for anticoagulant therapy and the associated nomogram used. For heparin dosing guidelines based on clinical scenario and Heparin Assay results, please refer to local Pharmacy and [facility] Guidelines for Anticoagulation therapy available on the [facility] intranet at:[email or web address]_Guidelines_[email or web address].aspx Performed By: #### C BC ####[id number] [place] [address] HEPARIN ASSAY,UFH 0.8 IU/mL Normal [facility] Comment on above: Result Comment: The therapeutic reference range for UFH may be either 0.3-0.6 IU/mL or 0.3-0.7 IU/mL based on the clinical setting for anticoagulant therapy and the associated nomogram used. For heparin dosing guidelines based on clinical scenario and Heparin Assay results, please refer to local Pharmacy and the [facility] Guidelines for Anticoagulation therapy available on the [facility] intranet at:[email or web address]_[email or web address].aspx Performed By: #### C BC ####[id number] [place] [address] MAGNESIUMon 04-06-2018 Magnesium mass conc 2.03 mg/dL Normal 1.60 - 2.40 [facility] Comment on above: Performed By: #### C BC ####[id number] [place] [address] Nutrition Therapy-Noteon Nutrition Therapy-Note Assessment Subjective/Objective:Note Type: Note Note Authored by: Registered Dietitian NutritionistPager Number: [phone] Nutrition Note:The patient is a 67 year [...] 11:27 by Claribel Damon (DIONY, JASMEET) Normal [facility] PT/INRon 04-06-2018 INR Coag RelTime (PPP) Canceled Normal [facility] Comment on above: Order Comment: TEST PT/INR WAS CANCELLED, 04/06/2018 09:51 NO SPECIMEN RECEIVED IN LAB. Performed By: #### C BC ####[id number] [place] [address] Prothrombin time (PT) Coag time (PPP) Canceled Normal [facility] Comment on above: Order Comment: TEST PT/INR WAS CANCELLED, 04/06/2018 09:51 NO SPECIMEN RECEIVED IN LAB. Result Comment: Note new reference range as of 03/10/2018. Performed By: #### C BC ####[id number] [place] [address] RENAL FUNCTION PANELon 04-06 Albumin mass conc 3.7 g/dL Normal 3.4 - 5.0 [facility] Comment on above: Performed By: #### C BC ####[id number] [place] [address] Anion gap 3 molar conc 13 mmol/L Normal 10 - 20 [facility] Comment on above: Performed By: #### C BC ####[id number] [place] [address] Calcium mass conc 9.0 mg/dL Normal 8.6 - 10.6 [facility] Comment on above: Performed By: #### C BC ####[id number] [place] [address] Chloride molar conc 98 mmol/L Normal 98 - 107 [facility] Comment on above: Performed By: #### C BC ####[id number] [place] [address] Creatinine mass conc 1.28 mg/dL Normal 0.50 - 1.30 [facility] Comment on above: Performed By: #### C BC ####[id number] [place] [address] GFR- AM. 68 mL/min/1.73m2 Normal >60 [facility] Comment on above: Result Comment: CALC ULATIONS OF ESTIMATED GFR ARE PERFORMED USING THE MDRD STUDY EQUATION FOR THE IDMS-TRACEABLE CREATININE METHODS. CLIN CHEM 2007;53:766-72 Performed By: #### C BC ####[id number] [place] [address] GFR-NON AM. 56 mL/min/1.73m2 Abnormal >60 [facility] Comment on above: Performed By: #### C BC ####[id number] [place] [address] Glucose mass conc 105 mg/dL High 74 - 99 [facility] Comment on above: Performed By: #### C BC ####[id number] [place] [address] HCO3 molar conc (Bld) 29 mmol/L Normal 21 - 32 [facility] Comment on above: Performed By: #### C BC ####[id number] [place] [address] Phosphate mass conc 3.8 mg/dL Normal 2.5 - 4.9 [facility] Comment on above: Result Comment: The performance characteristics of phosphorus testing in heparinized plasma have been validated by the individual laboratory site where testing is performed. Testing on heparinized plasma is not approved by the FDA; however, such approval is not necessary. Performed By: #### C BC ####[id number] [place] [address] Potassium molar conc 4.1 mmol/L Normal 3.5 - 5.3 [facility] Comment on above: Performed By: #### C BC ####[id number] [place] [address] Sodium molar conc 136 mmol/L Normal 136 - 145 [facility] Comment on above: Performed By: #### C BC ####[id number] [place] [address] Urea nitrogen mass conc 23 mg/dL Normal 6 - 23 [facility] Comment on above: Performed By: #### C BC ####[id number] [place] [address] CBCon 04-05-2018 Erythrocyte distribution width Auto Ratio (RBC) 12.7 % Normal 11.5 - 14.5 [facility] Comment on above: Performed By: #### C BC ####[id number] [place] [address] Hematocrit Auto Volume Fraction (Bld) 29.5 % Low 41.0 - 52.0 [facility] Comment on above: Performed By: #### C BC ####[id number] [place] [address] Hemoglobin mass conc (Bld) 9.8 g/dL Low 13.5 - 17.5 [facility] Comment on above: Performed By: #### C BC ####[id number] [place] [address] MCHC Auto mass conc (RBC) 33.2 g/dL Normal 32.0 - 36.0 [facility] Comment on above: Performed By: #### C BC ####[id number] [place] [address] MCV Auto Entitic volume (RBC) 91 fL Normal 80 - 100 [facility] Comment on above: Performed By: #### C BC ####[id number] [place] [address] Nucleated RBC/100 WBC Ratio (Bld) 0.0 /100 WBC Normal 0.0-0.0 [facility] Comment on above: Performed By: #### C BC ####[id number] [place] [address] Platelets Auto #/vol (Bld) 249 10*3/uL Normal 150 - 450 [facility] Comment on above: Performed By: #### C BC ####[id number] [place] [address] RBC Auto #/vol (Bld) 3.23 x10E12/L Low 4.50 - 5.90 [facility] Comment on above: Performed By: #### C BC ####[id number] [place] [address] WBC Auto #/vol (Bld) 10.2 10*3/uL Normal 4.4 - 11.3 [facility] Comment on above: Performed By: #### C BC ####[id number] [place] [address] COAGULATION SCREENon -18-2 018 aPTT Coag time (Bld) 93 s High 28 - 38 [facility] Comment on above: Result Comment: Note new reference range as of 03/10/2018. THE APTT IS NO LONGER USED FOR MONITORING UNFRACTIONATED HEPARIN THERAPY. FOR MONITORING HEPARIN THERAPY, USE THE HEPARIN ASSAY. Performed By: #### C BC ####[id number] [place] [address] INR Coag RelTime (PPP) 1.4 {INR} High 0.9 - 1.1 [facility] Comment on above: Performed By: #### C BC ####[id number] [place] [address] Prothrombin time (PT) Coag time (PPP) 15.1 s High 9.7 - 12.7 [facility] Comment on above: Result Comment: Note new reference range as of 03/10/2018. Performed By: #### C ####[id number] [place] [address] Clinical Event Note-CUT epic ardial wireson 04-05-2018 Clinical Event Note-CUT epicardial wires Event:Topic: CUT epicardial wiresDetails:11:05 Atrial and ventricular wires cut at skin level. Patient instructed tonotify radiology of retained epicardial wires prior to any MRI procedure, andto notify Dr. Gaston's of any visible wires or s/s infection. Provider / Team Contact Information:Provider/Team Contact Info-Pager Number: cardiac surgery [phone] Electronic Signatures:Alexandra Milligan (PAC) (Signed 05-Apr-2018 11:17)Authored: Event, Provider / Team Contact Information Last Updated: 05-Apr-2018 11:17 by Alexandra Milligan (PAC) Normal [facility] Daily Progress Note-Cardiac Surgeryon 04-05-2018 Protein mass [...] complaints overnight Objective Data: Objective Information: T [id number]/6996% Date/Time04/05 10: 10: 10: 10: 10:56Range(36.3C - 37.5C ) (63 - 75 ) (18 - 20 ) (109 - 131 )/ (64 - 75 ) (93%- 96% )Highest temp of 37.5 C was recorded at 04/04 22:38 Pain with Activity reported at 04/05 8:20: 0Pain at Rest reported at 04/05 8:20: 0 Mcvgvnx46/18 2:00: Weight in kg (Weight (kg)) 109.811 2:00: Weight in lbs ((lbs)) 242.1 ---- Intake and Output -----Mn/Dy/Year TimeIntakeOutputNetNov 2017 6:00 [id number] 2017 10:00 [id number] 2017 2:00 [id number] The Intake and Output Totals for the last 24 hours are:[id number] Physical Exam: Constitutional: lying in bed; NAD, [...] Water Injectable: 25 gram(s) IntraVenous Push Every 35Javboix9. Glucagon Injectable: 1 mg IntraMuscular Every 15 [...] [facility]G eval. Ptpresented to [facility] with chest pressure and dyspnea. He as found to havebilat PEs, was started on Heparin gtt, and transferred to [facility]. He wasfound to have a troponin leak at 2.25. Cardiology was consulted and the patientwas diagnosed with ACS, NSTEMI. He underwent a TTE and cath. He had normal EF,mild AI, and triple vessel CAD so was transferred to [facility] for CABG eval.Pulm consulted for PE workup. Pt required unfractionated heparin infusion for7-10 days to take advantage of intrinsic fibrinolysis and clot stabilization,as well as an IVC filter.Endocrine consulted for evaluation of Shasta disease and treatment periop.Also managed DM. 03/23/2018 [...] replaced K and Mg Endo - h/o Shasta's disease, DM, hypothyroidism- Appreciate endo recs, now [...] next 2-3 days depending on INR- plan homebound teacher and PT- continue to assess discharge needs Plan of care discussed with Dr. Gaston Signature/Cosignature/Attestat ion:Provider/Team Contact Info-Pager Numbercardiac surgery [phone] Electronic Signatures:Alexandra Milligan (PAC) (Signed 05-Apr-2018 15:48)Authored: Service, Subjective Data, Objective Data, Assessment and Plan,Signature/Cosignature/Att estation Last Updated: 05-Apr-2018 15:48 by Alexandra Milligan (PAC) Normal [facility] GLUCOSE-POCTon 04-05-2018 Glucose mass conc 289 mg/dL High 74 - 99 [facility] Comment on above: Performed By: #### C BC ####[id number] [place] [address] Glucose mass conc 222 mg/dL High 74 - 99 [facility] Comment on above: Performed By: #### C BC ####[id number] [place] [address] Glucose mass conc 193 mg/dL High 74 - 99 [facility] Comment on above: Performed By: #### C BC ####[id number] [place] [address] Glucose mass conc 129 mg/dL High 74 - 99 [facility] Comment on above: Performed By: #### C BC ####[id number] [place] [address] HEPARIN ASSAY,UFHon 04-05-20 18 HEPARIN ASSAY,UFH 0.7 IU/mL Normal [facility] Comment on above: Result Comment: The therapeutic reference range for UFH may be either 0.3-0.6 IU/mL or 0.3-0.7 IU/mL based on the clinical setting for anticoagulant therapy and the associated nomogram used. For heparin dosing guidelines based on clinical scenario and Heparin Assay results, please refer to local Pharmacy and the [facility] Guidelines for Anticoagulation therapy available on the [facility] intranet at:[email or web address]_Guidelines_for_[email or web address].aspx Performed By: #### C BC ####[id number] [place] [address] MAGNESIUMon 04-05-2018 Magnesium mass conc 1.75 mg/dL Normal 1.60 - 2.40 [facility] Comment on above: Performed By: #### C BC ####[id number] [place] [address] RENAL FUNCTION PANELon 04-05 Albumin mass conc 3.3 g/dL Low 3.4 - 5.0 [facility] Comment on above: Performed By: #### C BC ####[id number] [place] [address] Anion gap 3 molar conc 14 mmol/L Normal 10 - 20 [facility] Comment on above: Performed By: #### C BC ####[id number] [place] [address] Calcium mass conc 8.5 mg/dL Low 8.6 - 10.6 [facility] Comment on above: Performed By: #### C BC ####[id number] [place] [address] Chloride molar conc 96 mmol/L Low 98 - 107 [facility] Comment on above: Performed By: #### C BC ####[id number] [place] [address] Creatinine mass conc 1.37 mg/dL High 0.50 - 1.30 [facility] Comment on above: Performed By: #### C BC ####[id number] [place] [address] GFR- AM. 63 mL/min/1.73m2 Normal >60 [facility] Comment on above: Result Comment: CALC ULATIONS OF ESTIMATED GFR ARE PERFORMED USING THE MDRD STUDY EQUATION FOR THE IDMS-TRACEABLE CREATININE METHODS. CLIN CHEM 2007;53:766-72 Performed By: #### C BC ####[id number] [place] [address] GFR-NON AM. 52 mL/min/1.73m2 Abnormal >60 [facility] Comment on above: Performed By: #### C BC ####[id number] [place] [address] Glucose mass conc 200 mg/dL High 74 - 99 [facility] Comment on above: Performed By: #### C BC ####[id number] [place] [address] HCO3 molar conc (Bld) 26 mmol/L Normal 21 - 32 [facility] Comment on above: Performed By: #### C BC ####[id number] [place] [address] Phosphate mass conc 2.9 mg/dL Normal 2.5 - 4.9 [facility] Comment on above: Result Comment: The performance characteristics of phosphorus testing in heparinized plasma have been validated by the individual laboratory site where testing is performed. Testing on heparinized plasma is not approved by the FDA; however, such approval is not necessary. Performed By: #### C BC ####[id number] [place] [address] Potassium molar conc 3.3 mmol/L Low 3.5 - 5.3 [facility] Comment on above: Performed By: #### C BC ####[id number] [place] [address] Sodium molar conc 133 mmol/L Low 136 - 145 [facility] Comment on above: Performed By: #### C BC ####[id number] [place] [address] Urea nitrogen mass conc 23 mg/dL Normal 6 - 23 [facility] Comment on above: Performed By: #### C BC ####[id number] [place] [address] CBCon 04-04-2018 Erythrocyte distribution width Auto Ratio (RBC) Canceled Normal [facility] Comment on above: Order Comment: TEST CBC WAS CANCELLED, 04/04/2018 18:30 ?Cancel Reason: Cancelled. Performed By: #### C BC ####[id number] [place] [address] Hematocrit Auto Volume Fraction (Bld) Canceled Normal [facility] Comment on above: Order Comment: TEST CBC WAS CANCELLED, 04/04/2018 18:30 ?Cancel Reason: Cancelled. Performed By: #### C BC ####[id number] [place] [address] Hemoglobin mass conc (Bld) Canceled Normal [facility] Comment on above: Order Comment: TEST CBC WAS CANCELLED, 04/04/2018 18:30 ?Cancel Reason: Cancelled. Performed By: #### C BC ####[id number] [place] [address] MCHC Auto mass conc (RBC) Canceled Normal [facility] Comment on above: Order Comment: TEST CBC WAS CANCELLED, 04/04/2018 18:30 ?Cancel Reason: Cancelled. Performed By: #### C BC ####[id number] [place] [address] MCV Auto Entitic volume (RBC) Canceled Normal [facility] Comment on above: Order Comment: TEST CBC WAS CANCELLED, 04/04/2018 18:30 ?Cancel Reason: Cancelled. Performed By: #### C BC ####[id number] [place] [address] Nucleated RBC/100 WBC Ratio (Bld) Canceled Normal [facility] Comment on above: Order Comment: TEST CBC WAS CANCELLED, 04/04/2018 18:30 ?Cancel Reason: Cancelled. Performed By: #### C BC ####[id number] [place] [address] Platelets Auto #/vol (Bld) Canceled Normal [facility] Comment on above: Order Comment: TEST CBC WAS CANCELLED, 04/04/2018 18:30 ?Cancel Reason: Cancelled. Performed By: #### C BC ####[id number] [place] [address] RBC Auto #/vol (Bld) Canceled Normal [facility] Comment on above: Order Comment: TEST CBC WAS CANCELLED, 04/04/2018 18:30 ?Cancel Reason: Cancelled. Performed By: #### C BC ####[id number] [place] [address] WBC Auto #/vol (Bld) Canceled Normal [facility] Comment on above: Order Comment: TEST CBC WAS CANCELLED, 04/04/2018 18:30 ?Cancel Reason: Cancelled. Performed By: #### C BC ####[id number] [place] [address] Erythrocyte distribution width Auto Ratio (RBC) Canceled Normal [facility] Comment on above: Order Comment: TEST CBC WAS CANCELLED, 04/04/2018 03:39 No specimen received. Performed By: #### C BC ####[id number] [place] [address] Hematocrit Auto Volume Fraction (Bld) Canceled Normal [facility] Comment on above: Order Comment: TEST CBC WAS CANCELLED, 04/04/2018 03:39 No specimen received. Performed By: #### C BC ####[id number] [place] [address] Hemoglobin mass conc (Bld) Canceled Normal [facility] Comment on above: Order Comment: TEST CBC WAS CANCELLED, 04/04/2018 03:39 No specimen received. Performed By: #### C BC ####[id number] [place] [address] MCHC Auto mass conc (RBC) Canceled Normal [facility] Comment on above: Order Comment: TEST CBC WAS CANCELLED, 04/04/2018 03:39 No specimen received. Performed By: #### C BC ####[id number] [place] [address] MCV Auto Entitic volume (RBC) Canceled Normal [facility] Comment on above: Order Comment: TEST CBC WAS CANCELLED, 04/04/2018 03:39 No specimen received. Performed By: #### C BC ####[id number] [place] [address] Nucleated RBC/100 WBC Ratio (Bld) Canceled Normal [facility] Comment on above: Order Comment: TEST CBC WAS CANCELLED, 04/04/2018 03:39 No specimen received. Performed By: #### C BC ####[id number] [place] [address] Platelets Auto #/vol (Bld) Canceled Normal [facility] Comment on above: Order Comment: TEST CBC WAS CANCELLED, 04/04/2018 03:39 No specimen received. Performed By: #### C BC ####[id number] [place] [address] RBC Auto #/vol (Bld) Canceled Normal [facility] Comment on above: Order Comment: TEST CBC WAS CANCELLED, 04/04/2018 03:39 No specimen received. Performed By: #### C BC ####[id number] [place] [address] WBC Auto #/vol (Bld) Canceled Normal [facility] Comment on above: Order Comment: TEST CBC WAS CANCELLED, 04/04/2018 03:39 No specimen received. Performed By: #### C BC ####[id number] [place] [address] Erythrocyte distribution width Auto Ratio (RBC) 12.4 % Normal 11.5 - 14.5 [facility] Comment on above: Performed By: #### E MRAD ####NO LOCATION NEEDED Hematocrit Auto Volume Fraction (Bld) 26.8 % Low 41.0 - 52.0 [facility] Comment on above: Performed By: #### E MRAD ####NO LOCATION NEEDED Hemoglobin mass conc (Bld) 9.0 g/dL Low 13.5 - 17.5 [facility] Comment on above: Performed By: #### E MRAD ####NO LOCATION NEEDED MCHC Auto mass conc (RBC) 33.6 g/dL Normal 32.0 - 36.0 [facility] Comment on above: Performed By: #### E MRAD ####NO LOCATION NEEDED MCV Auto Entitic volume (RBC) 93 fL Normal 80 - 100 [facility] Comment on above: Performed By: #### E MRAD ####NO LOCATION NEEDED Nucleated RBC/100 WBC Ratio (Bld) 0.0 /100 WBC Normal 0.0-0.0 [facility] Comment on above: Performed By: #### E MRAD ####NO LOCATION NEEDED Platelets Auto #/vol (Bld) 168 10*3/uL Normal 150 - 450 [facility] Comment on above: Performed By: #### E MRAD ####NO LOCATION NEEDED RBC Auto #/vol (Bld) 2.89 x10E12/L Low 4.50 - 5.90 [facility] Comment on above: Performed By: #### E MRAD ####NO LOCATION NEEDED WBC Auto #/vol (Bld) 9.9 10*3/uL Normal 4.4 - 11.3 [facility] Comment on above: Performed By: #### E MRAD ####NO LOCATION NEEDED CBC AND DIFFERENTIALon 04-04 % AUTOMATED IMMATURE GRAN 0.9 % Normal 0.0 - 0.9 [facility] Comment on above: Result Comment: Perc ent differential counts (%) should be interpreted in the context of the absolute cell counts (cells/L). Performed By: #### C BC ####[id number] [place] [address] % NEUTROPHIL 62.2 % Normal 40.0 - 80.0 [facility] Comment on above: Performed By: #### C BC ####[id number] [place] [address] Basophils/100 WBC Auto (Bld) 0.8 % Normal 0.0 - 2.0 [facility] Comment on above: Performed By: #### C BC ####[id number] [place] [address] Basophils/100 WBC Auto (Bld) 0.07 x10E9/L Normal 0.00 - 0.10 [facility] Comment on above: Performed By: #### C BC ####[id number] [place] [address] Eosinophils Auto #/vol (Bld) 0.56 10*3/uL Normal 0.00 - 0.70 [facility] Comment on above: Performed By: #### C BC ####[id number] [place] [address] Eosinophils/100 WBC Auto (Bld) 6.0 % Normal 0.0 - 6.0 [facility] Comment on above: Performed By: #### C BC ####[id number] [place] [address] Erythrocyte distribution width Auto Ratio (RBC) 12.6 % Normal 11.5 - 14.5 [facility] Comment on above: Performed By: #### C BC ####[id number] [place] [address] Hematocrit Auto Volume Fraction (Bld) 26.6 % Low 41.0 - 52.0 [facility] Comment on above: Performed By: #### C BC ####[id number] [place] [address] Hemoglobin mass conc (Bld) 9.0 g/dL Low 13.5 - 17.5 [facility] Comment on above: Performed By: #### C BC ####[id number] [place] [address] Lymphocytes Auto #/vol (Bld) 1.96 10*3/uL Normal 1.20 - 4.80 [facility] Comment on above: Performed By: #### C BC ####[id number] [place] [address] Lymphocytes/100 WBC Auto (Bld) 21.0 % Normal 13.0 - 44.0 [facility] Comment on above: Performed By: #### C BC ####[id number] [place] [address] MCHC Auto mass conc (RBC) 33.8 g/dL Normal 32.0 - 36.0 [facility] Comment on above: Performed By: #### C BC ####[id number] [place] [address] MCV Auto Entitic volume (RBC) 91 fL Normal 80 - 100 [facility] Comment on above: Performed By: #### C BC ####[id number] [place] [address] Monocytes Auto #/vol (Bld) 0.85 10*3/uL Normal 0.10 - 1.00 [facility] Comment on above: Performed By: #### C BC ####[id number] [place] [address] Monocytes/100 WBC Auto (Bld) 9.1 % Normal 2.0 - 10.0 [facility] Comment on above: Performed By: #### C BC ####[id number] [place] [address] Neutrophils Auto #/vol (Bld) 5.81 10*3/uL Normal 1.20 - 7.70 [facility] Comment on above: Performed By: #### C BC ####[id number] [place] [address] Nucleated RBC/100 WBC Ratio (Bld) 0.0 /100 WBC Normal 0.0-0.0 [facility] Comment on above: Performed By: #### C BC ####[id number] [place] [address] Platelets Auto #/vol (Bld) 173 10*3/uL Normal 150 - 450 [facility] Comment on above: Performed By: #### C BC ####[id number] [place] [address] RBC Auto #/vol (Bld) 2.93 x10E12/L Low 4.50 - 5.90 [facility] Comment on above: Performed By: #### C BC ####[id number] [place] [address] WBC Auto #/vol (Bld) 9.3 10*3/uL Normal 4.4 - 11.3 [facility] Comment on above: Performed By: #### C BC ####[id number] [place] [address] COAGULATION SCREENon 018 aPTT Coag time (Bld) 79 s High 28 - 38 [facility] Comment on above: Result Comment: Note new reference range as of 03/10/2018. THE APTT IS NO LONGER USED FOR MONITORING UNFRACTIONATED HEPARIN THERAPY. FOR MONITORING HEPARIN THERAPY, USE THE HEPARIN ASSAY. Performed By: #### C BC ####[id number] [place] [address] INR Coag RelTime (PPP) 1.4 {INR} High 0.9 - 1.1 [facility] Comment on above: Performed By: #### C BC ####[id number] [place] [address] Prothrombin time (PT) Coag time (PPP) 15.3 s High 9.7 - 12.7 [facility] Comment on above: Result Comment: Note new reference range as of 03/10/2018. Performed By: #### C BC ####[id number] [place] [address] Daily Progress Note-Cardiac Surgeryon 04-04-2018 Protein mass conc Service: Cardiac [facility] Subjective Data:DON ELKINS is a 67 year [...] complaints overnight Objective Data: Objective Information: T EFBABaK8Fvtxz15.14579338/7595% Date/Time04/04 14: 14: 14: 14: 14:42Range(36C - 36.8C ) (67 - 75 ) (16 - 20 ) (117 - 128 )/ (69 - 76 ) (93% -97% ) As of 04-Apr-2018 04:41:00, patient is on 2 L/min of oxygen via nasal cannula. Pain with Activity reported at 04/04 8:15: 0Pain at Rest reported at 04/04 8:15: 0 Evmjzei46/17 4:41: Weight in kg (Weight (kg)) 109.9106/04 4:41: Weight in lbs ((lbs)) 242.5 ---- Intake and Output -----Mn/Dy/Year TimeIntakeOutputNetNov 2017 2:00 [id number] 2017 6:00 [id number] 2017 10:00 [id number] The Intake and Output Totals for the last 24 hours are:FwzvbmIvavjgHze684168-90 Physical Exam: Constitutional: lying in bed; NAD, [...] Water Injectable: 25 gram(s) IntraVenous Push Every 34Vesnfip3. Glucagon Injectable: 1 mg IntraMuscular Every 15 Minutes4. Ondansetron Injectable: 4 mg IntraVenous Push Every 6 Hours5. oxyCODONE Immediate Release: 5 mg Oral Every 4 Hours6. oxyCODONE Immediate Release: 10 mg Oral Every 4 Hours Recent Lab Results: Results: I have reviewed these laboratory results: Glucose_POCT Trending View Arihwb90-Gbs-1425 15:59:00 04-Apr-2018 12:39:00 04-Apr-2018 07:30:00Glucose-NUGU224 H 248 H 207 H Coagulation Screen [...] a past medical history of HTN,HLD, T2DM, Shasta's disease, hypothyroidism, COPD, AKASH on CPAP, prostate Spring/p prostatectomy in 2011, and psoriasis who [facility] from [facility] on 03/18 for CABG eval. Ptpresented to [facility] with chest pressure and dyspnea. He as found to havebilat PEs, was started on Heparin gtt, and transferred to [facility]. He wasfound to have a troponin leak at 2.25. Cardiology was consulted and the patientwas diagnosed with ACS, NSTEMI. He underwent a TTE and cath. He had normal EF,mild AI, and triple vessel CAD so was transferred to [facility] for CABG eval.Pulm consulted for PE workup. Pt required unfractionated heparin infusion for7-10 days to take advantage of intrinsic fibrinolysis and clot stabilization,as well as an IVC filter.Endocrine consulted for evaluation of Shasta disease and treatment periop.Also managed DM. 03/23/2018 OPERATION/PROCEDURE: by Severiano RodriguezapInferior vena cava filter. 03/31/18 OPERATION/PROCEDURE: by Dr. 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- continue to assess discharge needs Signature/Cosignature/Attestat ion:Provider/Team Contact Info-Pager Numbercardiac surgery [phone] Electronic Signatures:Alexandra Milligan (PAC) (Signed 04-Apr-2018 17:36)Authored: Service, Subjective Data, Objective Data, Assessment and Plan,Signature/Cosignature/Att estation Last Updated: 04-Apr-2018 17:36 by Alexandra Milligan (PAC) Normal [facility] Daily Progress Note-Endocrin ologyon 04-04-2018 Protein mass [...] Intake and Output -----Mn/Dy/Year TimeIntakeOutputNetNov 2017 6:00 [id number] 2017 10:00 qt82706-997Kxl 2017 2:00 [id number] The Intake and Output Totals for the last 24 hours are:KnsbfbPvmpwdRvu182437-517I RBDIQaO2Blknv61.23385532/7693% Date/Time04/04 7: 7: 7: 7: 7:24Range(36.1C - [...] reviewed these laboratory results: Glucose_POCT Trending View [id number]-Lll-6119 07:30:00 03-Apr-2018 22:08:00 03-Apr-2018 18:12:00 03-Apr-2018 11:22:00Glucose-RXNQ874 H 192 H 294 H 151 H Complete Blood Count + Differential 04-Apr-2018 02:57:00 ResultValueWhite Blood Cell Count 9.3Nucleated Erythrocyte Count 0.0Red Blood Cell Count 2.93 LHGB 9.0 LHCT 26.6 LMCV 91MCHC 33.8PLT 173RDW-CV 12.6Neutrophil % 62.2Immature Granulocytes % 0.9Lymphocyte % 21.0Monocyte % 9.1Eosinophil % 6.0Basophil % 0.8Neutrophil Count 5.81Lymphocyte Count 1.96Monocyte Count 0.85Eosinophil Count 0.56Basophil Count 0.07 Renal Function Panel Trending View Zllqze95-Kgl-9949 02:57:00 03-Apr-2018 21:03:00Glucose, Ihpej122 H 198 YZG220 L 132 LK3.8 4.3CL97 L 97 LBicarbonate, Serum27 26Anion Gap, Serum13 18PRT56 H 27 HCREAT1.24 1.30GFR-Non Ugaqauwo75 A 55 AGFR- Tjkbylbk11 67Calcium, Serum8.3 L 8.3 LPhosphorus, Serum2.9 2.7ALB3.2 [...] a past medicalhistory of HTN, HLD, T2DM, Shasta's disease, hypothyroidism, COPD, AKASH onCPAP, prostate ca s/p prostatectomy in 2011, and psoriasis who [facility] from [facility] on 03/18 forWALTER marshall.Endocrine consulted fr evaluation of Brigida disease and treatment periop Patient was on supra-therapeutic dose of HCT 20-0-20 , fludrocortisone 0.1 ,mgdailyPatient has uncontrolled HTN and uncontrolled BSIVC filter placed on abg 03/31 1. Shasta's Disease- HC taper as below04/04- make HCt [...] weekly ( and Friday) on 04/06 2. K6SQ-offybthx Glargine 20 units QHS and Lispro 6 [...] patient (as noted in the above attestation) [id number] Electronic Signatures:Shanda Rose (Fellow)) (Signed 04-Apr-2018 13:07)Authored: Service, Subjective Data, Objective Data, Assessment and Plan,Signature/Cosignature/Att estationIsmail-Leighton Leyva) (Signed 06-Apr-2018 12:54)Authored: Signature/Cosignature/Attestat ionCo-Signer: Service, Subjective Data, Objective Data Last Updated: 06-Apr-2018 12:[address]) Normal [facility] GLUCOSE-POCTon 04-04-2018 Glucose mass conc 204 mg/dL High 74 - 99 [facility] Comment on above: Performed By: #### C BC ####[id number] [place] [address] Glucose mass conc 248 mg/dL High 74 - 99 [facility] Comment on above: Performed By: #### C BC ####[id number] [place] [address] Glucose mass conc 207 mg/dL High 74 - 99 [facility] Comment on above: Performed By: #### C BC ####[id number] [place] [address] Glucose mass conc 192 mg/dL High 74 - 99 [facility] Comment on above: Performed By: #### E MRAD ####NO LOCATION NEEDED HEPARIN ASSAY,UFHon 04-04-20 18 HEPARIN ASSAY,UFH 0.5 IU/mL Normal [facility] Comment on above: Result Comment: The therapeutic reference range for UFH may be either 0.3-0.6 IU/mL or 0.3-0.7 IU/mL based on the clinical setting for anticoagulant therapy and the associated nomogram used. For heparin dosing guidelines based on clinical scenario and Heparin Assay results, please refer to local Pharmacy and [facility] Guidelines for Anticoagulation therapy available on the [facility] intranet at:[email or web address]_Guidelines_[email or web address].aspx Performed By: #### C BC ####[id number] [place] [address] HEPARIN ASSAY,UFH 0.5 IU/mL Normal [facility] Comment on above: Result Comment: The therapeutic reference range for UFH may be either 0.3-0.6 IU/mL or 0.3-0.7 IU/mL based on the clinical setting for anticoagulant therapy and the associated nomogram used. For heparin dosing guidelines based on clinical scenario and Heparin Assay results, please refer to local Pharmacy and [facility] Guidelines for Anticoagulation therapy available on the [facility] intranet at:[email or web address]_[email or web address] Performed By: #### E MRAD ####NO LOCATION NEEDED MAGNESIUMon 04-04-2018 Magnesium mass conc 1.88 mg/dL Normal 1.60 - 2.40 [facility] Comment on above: Performed By: #### C BC ####[id number] [place] [address] RENAL FUNCTION PANELon 04-04 Albumin mass conc Canceled Normal [facility] Comment on above: Order Comment: TEST RENAL FUNCTION PANEL WAS CANCELLED, 04/04/2018 18:30 ?Cancel Reason:Cancelled. Performed By: #### C BC ####[id number] [place] [address] Anion gap 3 molar conc Canceled Normal [facility] Comment on above: Order Comment: TEST RENAL FUNCTION PANEL WAS CANCELLED, 04/04/2018 18:30 ?Cancel Reason:Cancelled. Performed By: #### C BC ####[id number] [place] [address] Calcium mass conc Canceled Normal [facility] Comment on above: Order Comment: TEST RENAL FUNCTION PANEL WAS CANCELLED, 04/04/2018 18:30 ?Cancel Reason:Cancelled. Performed By: #### C BC ####[id number] [place] [address] Chloride molar conc Canceled Normal [facility] Comment on above: Order Comment: TEST RENAL FUNCTION PANEL WAS CANCELLED, 04/04/2018 18:30 ?Cancel Reason:Cancelled. Performed By: #### C BC ####[id number] [place] [address] Creatinine mass conc Canceled Normal [facility] Comment on above: Order Comment: TEST RENAL FUNCTION PANEL WAS CANCELLED, 04/04/2018 18:30 ?Cancel Reason:Cancelled. Performed By: #### C BC ####[id number] [place] [address] GFR- AM. Canceled Normal [facility] Comment on above: Order Comment: TEST RENAL FUNCTION PANEL WAS CANCELLED, 04/04/2018 18:30 ?Cancel Reason:Cancelled. Result Comment: CALC ULATIONS OF ESTIMATED GFR ARE PERFORMED USING THE MDRD STUDY EQUATION FOR THE IDMS-TRACEABLE CREATININE METHODS. CLIN CHEM 2007;53:766-72 Performed By: #### C BC ####[id number] [place] [address] GFR-NON AM. Canceled Normal [facility] Comment on above: Order Comment: TEST RENAL FUNCTION PANEL WAS CANCELLED, 04/04/2018 18:30 ?Cancel Reason:Cancelled. Performed By: #### C BC ####[id number] [place] [address] Glucose mass conc Canceled Normal [facility] Comment on above: Order Comment: TEST RENAL FUNCTION PANEL WAS CANCELLED, 04/04/2018 18:30 ?Cancel Reason:Cancelled. Performed By: #### C BC ####[id number] [place] [address] HCO3 molar conc (Bld) Canceled Normal [facility] Comment on above: Order Comment: TEST RENAL FUNCTION PANEL WAS CANCELLED, 04/04/2018 18:30 ?Cancel Reason:Cancelled. Performed By: #### C BC ####[id number] [place] [address] Phosphate mass conc Canceled Normal [facility] Comment on above: Order Comment: TEST RENAL FUNCTION PANEL WAS CANCELLED, 04/04/2018 18:30 ?Cancel Reason:Cancelled. Result Comment: The performance characteristics of phosphorus testing in heparinized plasma have been validated by the individual laboratory site where testing is performed. Testing on heparinized plasma is not approved by the FDA; however, such approval is not necessary. Performed By: #### C BC ####[id number] [place] [address] Potassium molar conc Canceled Normal [facility] Comment on above: Order Comment: TEST RENAL FUNCTION PANEL WAS CANCELLED, 04/04/2018 18:30 ?Cancel Reason:Cancelled. Performed By: #### C BC ####[id number] [place] [address] Sodium molar conc Canceled Normal [facility] Comment on above: Order Comment: TEST RENAL FUNCTION PANEL WAS CANCELLED, 04/04/2018 18:30 ?Cancel Reason:Cancelled. Performed By: #### C BC ####[id number] [place] [address] Urea nitrogen mass conc Canceled Normal [facility] Comment on above: Order Comment: TEST RENAL FUNCTION PANEL WAS CANCELLED, 04/04/2018 18:30 ?Cancel Reason:Cancelled. Performed By: #### C BC ####[id number] [place] [address] Albumin mass conc 3.2 g/dL Low 3.4 - 5.0 [facility] Comment on above: Performed By: #### C BC ####[id number] [place] [address] Anion gap 3 molar conc 13 mmol/L Normal 10 - 20 [facility] Comment on above: Performed By: #### C BC ####[id number] [place] [address] Calcium mass conc 8.3 mg/dL Low 8.6 - 10.6 [facility] Comment on above: Performed By: #### C BC ####[id number] [place] [address] Chloride molar conc 97 mmol/L Low 98 - 107 [facility] Comment on above: Performed By: #### C BC ####[id number] [place] [address] Creatinine mass conc 1.24 mg/dL Normal 0.50 - 1.30 [facility] Comment on above: Performed By: #### C BC ####[id number] [place] [address] GFR- AM. 70 mL/min/1.73m2 Normal >60 [facility] Comment on above: Result Comment: CALC ULATIONS OF ESTIMATED GFR ARE PERFORMED USING THE MDRD STUDY EQUATION FOR THE IDMS-TRACEABLE CREATININE METHODS. CLIN CHEM 2007;53:766-72 Performed By: #### C BC ####[id number] [place] [address] GFR-NON AM. 58 mL/min/1.73m2 Abnormal >60 [facility] Comment on above: Performed By: #### C BC ####[id number] [place] [address] Glucose mass conc 131 mg/dL High 74 - 99 [facility] Comment on above: Performed By: #### C BC ####[id number] [place] [address] HCO3 molar conc (Bld) 27 mmol/L Normal 21 - 32 [facility] Comment on above: Performed By: #### C BC ####[id number] [place] [address] Phosphate mass conc 2.9 mg/dL Normal 2.5 - 4.9 [facility] Comment on above: Result Comment: The performance characteristics of phosphorus testing in heparinized plasma have been validated by the individual laboratory site where testing is performed. Testing on heparinized plasma is not approved by the FDA; however, such approval is not necessary. Performed By: #### C BC ####[id number] [place] [address] Potassium molar conc 3.8 mmol/L Normal 3.5 - 5.3 [facility] Comment on above: Performed By: #### C BC ####[id number] [place] [address] Sodium molar conc 133 mmol/L Low 136 - 145 [facility] Comment on above: Performed By: #### C BC ####[id number] [place] [address] Urea nitrogen mass conc 26 mg/dL High 6 - 23 [facility] Comment on above: Performed By: #### C BC ####[id number] [place] [address] Albumin mass conc 3.2 g/dL Low 3.4 - 5.0 [facility] Comment on above: Performed By: #### E MRAD ####NO LOCATION NEEDED Anion gap 3 molar conc 13 mmol/L Normal 10 - 20 [facility] Comment on above: Performed By: #### E MRAD ####NO LOCATION NEEDED Calcium mass conc 8.3 mg/dL Low 8.6 - 10.6 [facility] Comment on above: Performed By: #### E MRAD ####NO LOCATION NEEDED Chloride molar conc 97 mmol/L Low 98 - 107 [facility] Comment on above: Performed By: #### E MRAD ####NO LOCATION NEEDED Creatinine mass conc 1.30 mg/dL Normal 0.50 - 1.30 [facility] Comment on above: Performed By: #### E MRAD ####NO LOCATION NEEDED GFR- AM. 67 mL/min/1.73m2 Normal >60 [facility] Comment on above: Result Comment: CALC ULATIONS OF ESTIMATED GFR ARE PERFORMED USING THE MDRD STUDY EQUATION FOR THE IDMS-TRACEABLE CREATININE METHODS. CLIN CHEM 2007;53:766-72 Performed By: #### E MRAD ####NO LOCATION NEEDED GFR-NON AM. 55 mL/min/1.73m2 Abnormal >60 [facility] Comment on above: Performed By: #### E MRAD ####NO LOCATION NEEDED Glucose mass conc 198 mg/dL High 74 - 99 [facility] Comment on above: Performed By: #### E MRAD ####NO LOCATION NEEDED HCO3 molar conc (Bld) 26 mmol/L Normal 21 - 32 [facility] Comment on above: Performed By: #### E MRAD ####NO LOCATION NEEDED Phosphate mass conc 2.7 mg/dL Normal 2.5 - 4.9 [facility] Comment on above: Result Comment: The performance characteristics of phosphorus testing in heparinized plasma have been validated by the individual laboratory site where testing is performed. Testing on heparinized plasma is not approved by the FDA; however, such approval is not necessary. Performed By: #### E MRAD ####NO LOCATION NEEDED Potassium molar conc 4.3 mmol/L Normal 3.5 - 5.3 [facility] Comment on above: Performed By: #### E MRAD ####NO LOCATION NEEDED Sodium molar conc 132 mmol/L Low 136 - 145 [facility] Comment on above: Performed By: #### E MRAD ####NO LOCATION NEEDED Urea nitrogen mass conc 27 mg/dL High 6 - 23 [facility] Comment on above: Performed By: #### E [...] Electronically signed by: STANISLAV RADFORD MD Normal [facility] CBCon 04-03-2018 Erythrocyte distribution width Auto Ratio (RBC) 13.0 % Normal 11.5 - 14.5 [facility] Comment on above: Performed By: #### E MRAD ####NO LOCATION NEEDED Hematocrit Auto Volume Fraction (Bld) 28.5 % Low 41.0 - 52.0 [facility] Comment on above: Performed By: #### E MRAD ####NO LOCATION NEEDED Hemoglobin mass conc (Bld) 9.6 g/dL Low 13.5 - 17.5 [facility] Comment on above: Performed By: #### E MRAD ####NO LOCATION NEEDED MCHC Auto mass conc (RBC) 33.7 g/dL Normal 32.0 - 36.0 [facility] Comment on above: Performed By: #### E MRAD ####NO LOCATION NEEDED MCV Auto Entitic volume (RBC) 93 fL Normal 80 - 100 [facility] Comment on above: Performed By: #### E MRAD ####NO LOCATION NEEDED Nucleated RBC/100 WBC Ratio (Bld) 0.0 /100 WBC Normal 0.0-0.0 [facility] Comment on above: Performed By: #### E MRAD ####NO LOCATION NEEDED Platelets Auto #/vol (Bld) 130 10*3/uL Low 150 - 450 [facility] Comment on above: Performed By: #### E MRAD ####NO LOCATION NEEDED RBC Auto #/vol (Bld) 3.08 x10E12/L Low 4.50 - 5.90 [facility] Comment on above: Performed By: #### E MRAD ####NO LOCATION NEEDED WBC Auto #/vol (Bld) 10.9 10*3/uL Normal 4.4 - 11.3 [facility] Comment on above: Performed By: #### E MRAD ####NO LOCATION NEEDED CBC AND DIFFERENTIALon 04-03 % AUTOMATED IMMATURE GRAN 0.6 % Normal 0.0 - 0.9 [facility] Comment on above: Result Comment: Perc ent differential counts (%) should be interpreted in the context of the absolute cell counts (cells/L). Performed By: #### E MRAD ####NO LOCATION NEEDED % NEUTROPHIL 60.9 % Normal 40.0 - 80.0 [facility] Comment on above: Performed By: #### E MRAD ####NO LOCATION NEEDED Basophils/100 WBC Auto (Bld) 0.07 x10E9/L Normal 0.00 - 0.10 [facility] Comment on above: Performed By: #### E MRAD ####NO LOCATION NEEDED Basophils/100 WBC Auto (Bld) 0.7 % Normal 0.0 - 2.0 [facility] Comment on above: Performed By: #### E MRAD ####NO LOCATION NEEDED Eosinophils Auto #/vol (Bld) 0.67 10*3/uL Normal 0.00 - 0.70 [facility] Comment on above: Performed By: #### E MRAD ####NO LOCATION NEEDED Eosinophils/100 WBC Auto (Bld) 7.1 % Normal 0.0 - 6.0 [facility] Comment on above: Performed By: #### E MRAD ####NO LOCATION NEEDED Erythrocyte distribution width Auto Ratio (RBC) 12.8 % Normal 11.5 - 14.5 [facility] Comment on above: Performed By: #### E MRAD ####NO LOCATION NEEDED Hematocrit Auto Volume Fraction (Bld) 28.5 % Low 41.0 - 52.0 [facility] Comment on above: Performed By: #### E MRAD ####NO LOCATION NEEDED Hemoglobin mass conc (Bld) 9.6 g/dL Low 13.5 - 17.5 [facility] Comment on above: Performed By: #### E MRAD ####NO LOCATION NEEDED Lymphocytes Auto #/vol (Bld) 1.99 10*3/uL Normal 1.20 - 4.80 [facility] Comment on above: Performed By: #### E MRAD ####NO LOCATION NEEDED Lymphocytes/100 WBC Auto (Bld) 21.0 % Normal 13.0 - 44.0 [facility] Comment on above: Performed By: #### E MRAD ####NO LOCATION NEEDED MCHC Auto mass conc (RBC) 33.7 g/dL Normal 32.0 - 36.0 [facility] Comment on above: Performed By: #### E MRAD ####NO LOCATION NEEDED MCV Auto Entitic volume (RBC) 92 fL Normal 80 - 100 [facility] Comment on above: Performed By: #### E MRAD ####NO LOCATION NEEDED Monocytes Auto #/vol (Bld) 0.92 10*3/uL Normal 0.10 - 1.00 [facility] Comment on above: Performed By: #### E MRAD ####NO LOCATION NEEDED Monocytes/100 WBC Auto (Bld) 9.7 % Normal 2.0 - 10.0 [facility] Comment on above: Performed By: #### E MRAD ####NO LOCATION NEEDED Neutrophils Auto #/vol (Bld) 5.76 10*3/uL Normal 1.20 - 7.70 [facility] Comment on above: Performed By: #### E MRAD ####NO LOCATION NEEDED Nucleated RBC/100 WBC Ratio (Bld) 0.0 /100 WBC Normal 0.0-0.0 [facility] Comment on above: Performed By: #### E MRAD ####NO LOCATION NEEDED Platelets Auto #/vol (Bld) 144 10*3/uL Low 150 - 450 [facility] Comment on above: Performed By: #### E MRAD ####NO LOCATION NEEDED RBC Auto #/vol (Bld) 3.09 x10E12/L Low 4.50 - 5.90 [facility] Comment on above: Performed By: #### E MRAD ####NO LOCATION NEEDED WBC Auto #/vol (Bld) 9.5 10*3/uL Normal 4.4 - 11.3 [facility] Comment on above: Performed By: #### E [...] Contact Information:Provider/Team Contact Info-Pager Number: cardiac surgery [phone] Electronic Signatures:Mary Munroe (SENIOR SYSTEMS ENGINEER-SURGICAL SUPERVISOR) (Signed 03-Apr-2018 16:04)Authored: Event, Provider / Team Contact Information Last Updated: 03-Apr-2018 16:04 by Mary Munroe (SENIOR SYSTEMS ENGINEER-SURGICAL SUPERVISOR) Normal [facility] Daily Progress Note-Cardiac Surgeryon 04-03-2018 Protein mass [...] Intake and Output -----Mn/Dy/Year TimeIntakeOutputNetNov 2017 6:00 [id number] 2017 10:00 tf388756-29Kyu 2017 2:00 [id number] The Intake and Output Totals for the last 24 hours are:NmcpkfZnviifGvy7254831-239 Intake Output Enteral - Oral 820 mL Urine 1180 mL IV Fluids 55 mL Chest Tubes 170 mL T RJBUYwB2Ugpml12.23350176/6892% Date/Time04/03 6: 6: 6: 6: 6:52Range(36C - 37.2C ) (69 - 86 ) (16 - 20 ) (108 - 134 )/ (66 - 75 ) (91% -95% ) As of 03-Apr-2018 04:00:00, patient is on 2% oxygen via nasal cannula.Highest temp of 37.2 C was recorded at 04/03 6:52 Qsortxg61/16 6:00: Weight in kg (Weight (kg)) 109.811 [...] Water Injectable: 25 gram(s) IntraVenous Push Every 28Apijvly6. Glucagon Injectable: 1 mg IntraMuscular Every 15 [...] 06:57:00 ResultValueMagnesium, Serum 1.94 Glucose_POCT Trending View Bdwkgj72-Umj-5980 21:05:00 02-Apr-2018 17:14:00 02-Apr-2018 11:05:00 02-Apr-2018 07:21:00 02-Apr-2018 03:09:00Glucose-IRSS443 H 137 H 310 H 223 H [...] [facility] for CABG eval. Ptpresented to [facility] with chest pressure and dyspnea. He as found to havebilat PEs, was started on Heparin gtt, and transferred to [facility]. He wasfound to have a troponin leak at 2.25. Cardiology was consulted and the patientwas diagnosed with ACS, NSTEMI. He underwent a TTE and cath. He had normal EF,mild AI, and triple vessel CAD so was transferred to [facility] for CABG eval.Pulm consulted for PE workup. 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, insulin gtt;one CT with air leak [...] taper ordered as per Endo recs for Shasta's- starting fludrocortisone 4 days per week on [...] discharge early the week of 04/06- plan homebound teacher and PT- continue to assess discharge needs Signature/Cosignature/Attestat ion:Provider/Team Contact Info-Pager Numbercardiac surgery [phone] Electronic Signatures:Mary Munroe (SENIOR SYSTEMS ENGINEER-SURGICAL SUPERVISOR) (Signed 03-Apr-2018 21:30)Authored: Service, Subjective Data, Objective Data, Assessment and Plan,Signature/Cosignature/Att estation Last Updated: 03-Apr-2018 21:30 by Mary Munroe (SENIOR SYSTEMS ENGINEER-SURGICAL SUPERVISOR) Normal [facility] Daily Progress Note-Endocrin ologyon 04-03-2018 Protein mass conc Consult Type: subseq uent visit/care Service: Endocrinology Subjective Data:DON ELKINS is a 67 year old Male who is Hospital Day # 17 and POD #3 for CABGx 3;-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 Objective Data: Objective Information: ---- Intake and Output -----Mn/Dy/Year TimeIntakeOutputNetPsychiatric Hospital 2017 2:00 [id number] 2017 6:00 [id number] 2017 10:00 [id number] The Intake and Output Totals for the last 24 hours are:GpeapcBoenxjRtg5806786-468 T WPSPDzE8Whzcg57.84870070/5194% Date/Time04/03 14: 14: 14: 14: 14:40Range(36.2C - [...] Water Injectable: 25 gram(s) IntraVenous Push Every 24Dztxvxy1. Glucagon Injectable: 1 mg IntraMuscular Every 15 Minutes4. Ondansetron Injectable: 4 mg IntraVenous Push Every 6 Hours5. oxyCODONE Immediate Release: 5 mg Oral Every 4 Hours6. oxyCODONE Immediate Release: 10 mg Oral Every 4 Hours Currently Suspended Medications -- 1. Lisinopril: 20 mg Oral Every Night Recent Lab Results: Results: I have reviewed these laboratory results: Glucose_POCT Trending View Gjogns43-Edj-2341 11:22:00 02-Apr-2018 21:05:00 02-Apr-2018 17:14:00 02-Apr-2018 11:05:00 02-Apr-2018 07:21:00Glucose-SKBI144 H 200 H 137 H 310 H [...] a past medicalhistory of HTN, HLD, T2DM, Shasta's disease, hypothyroidism, COPD, AKASH onCPAP, prostate ca s/p prostatectomy in 2011, and psoriasis who [facility] from [facility] on 03/18 forCA eval.Endocrine consulted fr evaluation of Shasta disease and treatment periop Patient was on [...] times weekly ( and Friday) on04/06 2. V6WD--epamqfro Glargine today as : 20 units QHS and Lispro 6 TIDAC-ISS correction to 2 units per 50 >150--Will follow Please page with questions [phone] Patient seen and examined, plan discussed with Dr Geller Electronic Signatures:Bryon Sandoval (Fellow)) (Signed 03-Apr-2018 14:47)Authored: Service, Subjective Data, Objective Data, Assessment and Plan,Signature/Cosignature/Att estationRose Mary Burrell) (Signed 03-Apr-2018 18:05)Authored: Signature/Cosignature/Attestat ionCo-Signer: Service, Subjective Data, Objective Data, Assessment and Plan,Signature/Cosignature/Att estation Last Updated: 03-Apr-2018 18:05 by Rose Mary Burrell) Normal [facility] GLUCOSE-POCTon 04-03-2018 Glucose mass conc 294 mg/dL High 74 - 99 [facility] Comment on above: Performed By: #### E MRAD ####NO LOCATION NEEDED Glucose mass conc 151 mg/dL High 74 - 99 [facility] Comment on above: Performed By: #### E MRAD ####NO LOCATION NEEDED MAGNESIUMon 04-03-2018 Magnesium mass conc 1.94 mg/dL Normal 1.60 - 2.40 [facility] Comment on above: Performed By: #### E MRAD ####NO LOCATION NEEDED PT/INRon 04-03-2018 INR Coag RelTime (PPP) 1.2 {INR} High 0.9 - 1.1 [facility] Comment on above: Performed By: #### E MRAD ####NO LOCATION NEEDED Prothrombin time (PT) Coag time (PPP) 13.7 s High 9.7 - 12.7 [facility] Comment on above: Result Comment: Note new reference range as of 03/10/2018. Performed By: #### E MRAD ####NO LOCATION NEEDED RENAL FUNCTION PANELon 04-03 Albumin mass conc 3.4 g/dL Normal 3.4 - 5.0 [facility] Comment on above: Performed By: #### E MRAD ####NO LOCATION NEEDED Anion gap 3 molar conc 14 mmol/L Normal 10 - 20 [facility] Comment on above: Performed By: #### E MRAD ####NO LOCATION NEEDED Calcium mass conc 8.5 mg/dL Low 8.6 - 10.6 [facility] Comment on above: Performed By: #### E MRAD ####NO LOCATION NEEDED Chloride molar conc 95 mmol/L Low 98 - 107 [facility] Comment on above: Performed By: #### E MRAD ####NO LOCATION NEEDED Creatinine mass conc 1.32 mg/dL High 0.50 - 1.30 [facility] Comment on above: Performed By: #### E MRAD ####NO LOCATION NEEDED GFR- AM. 65 mL/min/1.73m2 Normal >60 [facility] Comment on above: Result Comment: CALC ULATIONS OF ESTIMATED GFR ARE PERFORMED USING THE MDRD STUDY EQUATION FOR THE IDMS-TRACEABLE CREATININE METHODS. CLIN CHEM 2007;53:766-72 Performed By: #### E MRAD ####NO LOCATION NEEDED GFR-NON AM. 54 mL/min/1.73m2 Abnormal >60 [facility] Comment on above: Performed By: #### E MRAD ####NO LOCATION NEEDED Glucose mass conc 125 mg/dL High 74 - 99 [facility] Comment on above: Performed By: #### E MRAD ####NO LOCATION NEEDED HCO3 molar conc (Bld) 28 mmol/L Normal 21 - 32 [facility] Comment on above: Performed By: #### E MRAD ####NO LOCATION NEEDED Phosphate mass conc 3.1 mg/dL Normal 2.5 - 4.9 [facility] Comment on above: Result Comment: The performance characteristics of phosphorus testing in heparinized plasma have been validated by the individual laboratory site where testing is performed. Testing on heparinized plasma is not approved by the FDA; however, such approval is not necessary. Performed By: #### E MRAD ####NO LOCATION NEEDED Potassium molar conc 3.9 mmol/L Normal 3.5 - 5.3 [facility] Comment on above: Performed By: #### E MRAD ####NO LOCATION NEEDED Sodium molar conc 133 mmol/L Low 136 - 145 [facility] Comment on above: Performed By: #### E MRAD ####NO LOCATION NEEDED Urea nitrogen mass conc 25 mg/dL High 6 - 23 [facility] Comment on above: Performed By: #### E MRAD ####NO LOCATION NEEDED Albumin mass conc 3.5 g/dL Normal 3.4 - 5.0 [facility] Comment on above: Performed By: #### E MRAD ####NO LOCATION NEEDED Anion gap 3 molar conc 13 mmol/L Normal 10 - 20 [facility] Comment on above: Performed By: #### E MRAD ####NO LOCATION NEEDED Calcium mass conc 8.6 mg/dL Normal 8.6 - 10.6 [facility] Comment on above: Performed By: #### E MRAD ####NO LOCATION NEEDED Chloride molar conc 94 mmol/L Low 98 - 107 [facility] Comment on above: Performed By: #### E MRAD ####NO LOCATION NEEDED Creatinine mass conc 1.37 mg/dL High 0.50 - 1.30 [facility] Comment on above: Performed By: #### E MRAD ####NO LOCATION NEEDED GFR- AM. 63 mL/min/1.73m2 Normal >60 [facility] Comment on above: Result Comment: CALC ULATIONS OF ESTIMATED GFR ARE PERFORMED USING THE MDRD STUDY EQUATION FOR THE IDMS-TRACEABLE CREATININE METHODS. CLIN CHEM 2007;53:766-72 Performed By: #### E MRAD ####NO LOCATION NEEDED GFR-NON AM. 52 mL/min/1.73m2 Abnormal >60 [facility] Comment on above: Performed By: #### E MRAD ####NO LOCATION NEEDED Glucose mass conc 163 mg/dL High 74 - 99 [facility] Comment on above: Performed By: #### E MRAD ####NO LOCATION NEEDED HCO3 molar conc (Bld) 28 mmol/L Normal 21 - 32 [facility] Comment on above: Performed By: #### E MRAD ####NO LOCATION NEEDED Phosphate mass conc 3.0 mg/dL Normal 2.5 - 4.9 [facility] Comment on above: Result Comment: The performance characteristics of phosphorus testing in heparinized plasma have been validated by the individual laboratory site where testing is performed. Testing on heparinized plasma is not approved by the FDA; however, such approval is not necessary. Performed By: #### E MRAD ####NO LOCATION NEEDED Potassium molar conc 4.2 mmol/L Normal 3.5 - 5.3 [facility] Comment on above: Performed By: #### E MRAD ####NO LOCATION NEEDED Sodium molar conc 131 mmol/L Low 136 - 145 [facility] Comment on above: Performed By: #### E MRAD ####NO LOCATION NEEDED Urea nitrogen mass conc 24 mg/dL High 6 - 23 [facility] Comment on above: Performed By: #### E [...] findingsas stated. This study was interpreted at [facility], [place], [place].Electronically signed by: STANISLAV RADFORD MD [facility] CHEST 1 VIEW Name: DON ELKINS STUDY:CHEST [...] findingsas stated. This study was interpreted at [facility], [place], [place].Electronically signed by: STANISLAV RADFORD MD Normal [facility] ARTERIAL FULL PANELon 2017 Anion gap 3 molar conc 6 mmol/L Low 10 - 25 [facility] Comment on above: Performed By: #### E MRAD ####NO LOCATION NEEDED BASE EXCESS-BLOOD 4.1 mmol/L High -2.0 - 3.0 [facility] Comment on above: Performed By: #### E MRAD ####NO LOCATION NEEDED CALCIUM,IONIZED 1.13 mmol/L Normal 1.10 - 1.33 [facility] Comment on above: Performed By: #### E MRAD ####NO LOCATION NEEDED Chloride molar conc 100 mmol/L Normal 98 - 107 [facility] Comment on above: Performed By: #### E MRAD ####NO LOCATION NEEDED Glucose mass conc 182 mg/dL High 74 - 99 [facility] Comment on above: Performed By: #### E MRAD ####NO LOCATION NEEDED Hematocrit Auto Volume Fraction (Bld) 24.0 % Low 41.0 - 52.0 [facility] Comment on above: Performed By: #### E MRAD ####NO LOCATION NEEDED HGB,CALCULATED 8.2 g/dL Low 13.5 - 17.5 [facility] Comment on above: Performed By: #### E MRAD ####NO LOCATION NEEDED Lactate molar conc 1.5 mmol/L Normal 0.4 - 2.0 [facility] Comment on above: Performed By: #### E MRAD ####NO LOCATION NEEDED Oxygen ppres (BldA) 93 mm[Hg] Normal 85 - 95 [facility] Comment on above: Performed By: #### E MRAD ####NO LOCATION NEEDED PCO2 46 mmHg High 38 - 42 [facility] Comment on above: Performed By: #### E MRAD ####NO LOCATION NEEDED pH (Bld) 7.41 [pH] Normal 7.38 - 7.42 [facility] Comment on above: Performed By: #### E MRAD ####NO LOCATION NEEDED Potassium molar conc 4.1 mmol/L Normal 3.5 - 5.3 [facility] Comment on above: Performed By: #### E MRAD ####NO LOCATION NEEDED RBC Auto #/vol (Bld) 29.2 mmol/L High 22.0 - 26.0 [facility] Comment on above: Performed By: #### E MRAD ####NO LOCATION NEEDED SO2 99 % Normal 94 - 100 [facility] Comment on above: Performed By: #### E MRAD ####NO LOCATION NEEDED Sodium molar conc 131 mmol/L Low 136 - 145 [facility] Comment on above: Performed By: #### E MRAD ####NO LOCATION NEEDED CALCIUM, IONIZEDon 8 CALCIUM,IONIZED 1.11 mmol/L Normal 1.10 - 1.33 [facility] Comment on above: Result Comment: The performance [...] (RBC) 13.3 % Normal 11.5 - 14.5 [facility] Comment on above: Performed By: #### E MRAD ####NO LOCATION NEEDED Hematocrit Auto Volume Fraction (Bld) 29.1 % Low 41.0 - 52.0 [facility] Comment on above: Performed By: #### E MRAD ####NO LOCATION NEEDED Hemoglobin mass conc (Bld) 9.5 g/dL Low 13.5 - 17.5 [facility] Comment on above: Performed By: #### E MRAD ####NO LOCATION NEEDED MCHC Auto mass conc (RBC) 32.6 g/dL Normal 32.0 - 36.0 [facility] Comment on above: Performed By: #### E MRAD ####NO LOCATION NEEDED MCV Auto Entitic volume (RBC) 94 fL Normal 80 - 100 [facility] Comment on above: Performed By: #### E MRAD ####NO LOCATION NEEDED Nucleated RBC/100 WBC Ratio (Bld) 0.0 /100 WBC Normal 0.0-0.0 [facility] Comment on above: Performed By: #### E MRAD ####NO LOCATION NEEDED Platelets Auto #/vol (Bld) 122 10*3/uL Low 150 - 450 [facility] Comment on above: Performed By: #### E MRAD ####NO LOCATION NEEDED RBC Auto #/vol (Bld) 3.08 x10E12/L Low 4.50 - 5.90 [facility] Comment on above: Performed By: #### E MRAD ####NO LOCATION NEEDED WBC Auto #/vol (Bld) 10.1 10*3/uL Normal 4.4 - 11.3 [facility] Comment on above: Performed By: #### E MRAD ####NO LOCATION NEEDED COAGULATION SCREENon 018 aPTT Coag time (Bld) 28 s Normal 28 - 38 [facility] Comment on above: Result Comment: Note new reference range as of 03/10/2018. THE APTT IS NO LONGER USED FOR MONITORING UNFRACTIONATED HEPARIN THERAPY. FOR MONITORING HEPARIN THERAPY, USE THE HEPARIN ASSAY. Performed By: #### E MRAD ####NO LOCATION NEEDED INR Coag RelTime (PPP) 1.4 {INR} High 0.9 - 1.1 [facility] Comment on above: Performed By: #### E MRAD ####NO LOCATION NEEDED Prothrombin time (PT) Coag time (PPP) 15.2 s High 9.7 - 12.7 [facility] Comment on above: Result Comment: Note new reference range as of 03/10/2018. Performed By: #### E MRAD ####NO LOCATION NEEDED CORTISOL, P.M.on 04-02-2018 CORTISOL, P.M. 13.8 ug/dL High 2.5 - 10.0 [facility] Comment on above: Performed By: #### E [...] around the unit. Objective Data: Objective InformationT FOUYPaV4Xmmsw87.9345524%Date/T 8: 7: 7: 7:00Range(36.3C - 37.2C ) [...] (L/min/m2)2.4(2.4 - 3.9)04/01 10:00 Direct Arterial Blood TqnejrhxDljpuxlh671(120 - 159)04/02 7:00Diastolic (mm Hg)51(51 - 77)04/02 7:00Mean (mm Hg)73(72 - 101)04/02 7:00Pulse Pressure (mm Hg)71(66 - 94)04/02 7:28Qnvoghaw370(120 - 159)04/02 7:00Diastolic (mm Hg)51(51 - 77)04/02 7:00Mean (mm Hg)73(72 - 101)04/02 7:00Pulse Pressure (mm Hg)71(66 - 94)04/02 7:00 FXWGtfjkbtd89(28 - 39)04/01 11:00Diastolic (mm Hg)22(10 - 22)04/01 11:00Mean (mm Hg)9(9 - 28)04/01 11:00 ---- Intake and Output -----Mn/Dy/Year TimeIntakeOutputNetNov 2017 6:00 [id number] 2017 10:00 [id number] 2017 2:00 [id number] The Intake and Output Totals for the last 24 hours are:[id number] Drain and tube details (included in I&O [...] \ Recent Arterial Blood Gas Results 04/02/2018 02:48fN349 24 h range: ( 73 - 93 )pH7.41 24 h range: ( 7.41 - 7.43 )fXM681 24 h range: ( 38 - 46 )SO299 24 h range: ( 96 - 99 )Base Excess4.1 24 h range: ( 0.9 - 4.1 )Mipxdzixppm84.2 24 h range: ( 25.2 - 29.2 ) Assessment and Plan:Daily Risk Screen: Does patient have a central lineno Does patient have an indwelling urinary catheteryes Plan for indwelling urinary catheter removal todayyes Is the patient intubatedno Other:Assessment: Assessment:67 year old with a history of CAD, HTN, HLD, DM2, Gerd, Shasta's, andhypothyroid presents from the OR s/p CABG [...] per SICU protocol ENDO: History of diabetes, Shasta's and hypothyroid. HbA1c: 7.9. Endocrinefollowing patient. Patient [...] Filiberto Richey - dc Dispo: Continue SICU care.#07600 Code Status: Code StatusFull Code SCIP:Urinary Catheter Removed Post-Op Day 2: noReason Patient Needs Her: Strict I&0Patient on Beta Danica Prior to Admission: noProphylactic antibiotics scheduled to be discontinued with 24 hr of anesthesiaend time (48 hr for cardiac surgery): yesType of VTE Prophylaxis Ordered: Subcutaneous heparin and SCDs Signature/Cosignature/Attestat ion:Comments/ Additional Ettsrijw23y/o male s/p CABG x3 with Dr Gaston. [...] Updated: 02-Apr-2018 14:54 by Abelino Klein) Normal [facility] Daily Progress Note-Endocrin ologyon 04-02-2018 Protein mass conc Consult Type: subseq uent visit/care Service: Endocrinology Subjective Data:DON ELKINS is a 67 year old Male who is Hospital Day # 16 and POD #2 for CABGx 3;-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 Objective Data: Objective Information: ---- Intake and Output -----Mn/Dy/Year TimeIntakeOutputNetNov 2017 2:00 [id number] 2017 6:00 [id number] 2017 10:00 [id number] The Intake and Output Totals for the last 24 hours are:[id number] Physical Exam: Constitutional: Well developed, awake/alert/oriented x3, [...] Water Injectable: 25 gram(s) IntraVenous Push Every 38Dvmdfao3. Glucagon Injectable: 1 mg IntraMuscular Every 15 Minutes4. Ondansetron Injectable: 4 mg IntraVenous Push Every 6 Hours5. oxyCODONE Immediate Release: 5 mg Oral Every 4 Hours6. oxyCODONE Immediate Release: 10 mg Oral Every 4 Hours Currently Suspended Medications -- 1. Lisinopril: 20 mg Oral Every Night Recent Lab Results: Results: I have reviewed these laboratory results: Glucose_POCT Trending View Pwqkze58-Agp-3907 17:14:00 02-Apr-2018 11:05:00 02-Apr-2018 07:21:00 02-Apr-2018 03:09:00 01-Apr-2018 23:14:00 01-Apr-2018 19:21:00 03-Pfe-702560:19:00 01-Apr-2018 11:07:00 01-Apr-2018 07:27:00 01-Apr-2018 03:17:00 01-Apr-2018 00:07:00Glucose-POFQ156 H 310 H 223 H 199 H 167 H 174 H 152H 181 H 228 H 168 H 175 H Renal Function Panel Trending View Swfbjw63-Wmj-5610 02:35:00 01-Apr-2018 18:56:00 01-Apr-2018 03:26:00Glucose, Xwjxa052 H 169 H 167 VWM957 L 134 L 137K4.1 4.2 4.4CL97 L 99 100Bicarbonate, Serum27 28 26Anion Gap, Serum13 11 11ZHP31 20 47ANWOI1.21 1.35 H 1.30GFR-Non Cevmxlft29 A 53 A 55 AGFR- Jpurkxxw77 64 67Calcium, Serum8.5 L 8.8 8.7Phosphorus, Serum3.6 3.3 4.0ALB3.5 3.7 3.7 Cortisol P.M. Trending View Mhbdpd12-Lhb-2728 20:38:00 01-Apr-2018 18:56:00 01-Apr-2018 17:14:00Cortisol P.M.13.8 H 22.4 H 34.8 H Assessment and Plan:Assessment: Mr. Elkins is a 67 yo WM with no known history of CAD, who has a past medicalhistory of HTN, HLD, T2DM, Shasta's disease, hypothyroidism, COPD, AKASH onCPAP, prostate ca s/p prostatectomy in 2011, and psoriasis who [facility] from [facility] on 03/18 David marshall.Endocrine consulted fr evaluation of Brigida disease and treatment periop Patient was on supra-therapeutic dose of HCT 20-0-20 , fludrocortisone 0.1 ,mgdailyPatient has uncontrolled HTN and uncontrolled BSIVC filter placed on 03/23 1. Shasta's Disease-- Fludrocortisone 0.05 mg 4 times weekly [...] noon - 2.5 mg @ 5pm 2. B7TA--rnhsarpa Glargine today as : 20 units QHS and Lispro 6 TIDAC-ISS correction to 2 units per 50 >150--Will follow Please page with questions [phone] Patient seen and examined, plan discussed with [...] patient (as noted in the above attestation) [id number] Electronic Signatures:Starr Quevedo) (Signed 03-Apr-2018 15:53)Authored: Signature/Cosignature/Attestat ionCo-Signer: Service, Subjective Data, Objective Data, Assessment and Plan,Signature/Cosignature/Att estationHasmukh Stephenson (Resident)) (Signed 02-Apr-2018 17:27)Authored: Service, Subjective Data, Objective Data, Assessment and Plan,Signature/Cosignature/Att estation Last Updated: 03-Apr-2018 15:53 by Starr Quevedo) Normal [facility] GLUCOSE-POCTon 04-02-2018 Glucose mass conc 200 mg/dL High [facility] 99 [facility] Comment on above: Performed By: #### E MRAD ####NO LOCATION NEEDED Glucose mass conc 137 mg/dL [address] Comment on above: Performed By: #### E MRAD ####NO LOCATION NEEDED Glucose mass conc 310 mg/dL [address] Comment on above: Result Comment: Glu2 : Fingertip - Capillar Performed By: #### E MRAD ####NO LOCATION NEEDED Glucose mass conc 223 mg/dL [address] Comment on above: Result Comment: Glu2 : Fingertip - Capillar Performed By: #### E MRAD ####NO LOCATION NEEDED Glucose mass conc 199 mg/dL [address] Comment on above: Performed By: #### E MRAD ####NO LOCATION NEEDED Glucose mass conc 167 mg/dL [address] Comment on above: Performed By: #### E MRAD ####NO LOCATION NEEDED MAGNESIUMon 04-02-2018 Magnesium mass conc 1.88 mg/dL Normal 1.60 - 2.40 [facility] Comment on above: Performed By: #### E MRAD ####NO LOCATION NEEDED RENAL FUNCTION PANELon 04-02 Albumin mass conc 3.5 g/dL Normal 3.4 - 5.0 [facility] Comment on above: Performed By: #### E MRAD ####NO LOCATION NEEDED Anion gap 3 molar conc 13 mmol/L Normal 10 - 20 [facility] Comment on above: Performed By: #### E MRAD ####NO LOCATION NEEDED Calcium mass conc 8.5 mg/dL Low 8.6 - 10.6 [facility] Comment on above: Performed By: #### E MRAD ####NO LOCATION NEEDED Chloride molar conc 97 mmol/L Low 98 - 107 [facility] Comment on above: Performed By: #### E MRAD ####NO LOCATION NEEDED Creatinine mass conc 1.21 mg/dL Normal 0.50 - 1.30 [facility] Comment on above: Performed By: #### E MRAD ####NO LOCATION NEEDED GFR- AM. 73 mL/min/1.73m2 Normal >60 [facility] Comment on above: Result Comment: CALC ULATIONS OF ESTIMATED GFR ARE PERFORMED USING THE MDRD STUDY EQUATION FOR THE IDMS-TRACEABLE CREATININE METHODS. CLIN CHEM 2007;53:766-72 Performed By: #### E MRAD ####NO LOCATION NEEDED GFR-NON AM. 60 mL/min/1.73m2 Abnormal >60 [facility] Comment on above: Performed By: #### E MRAD ####NO LOCATION NEEDED Glucose mass conc 182 mg/dL High 74 - 99 [facility] Comment on above: Performed By: #### E MRAD ####NO LOCATION NEEDED HCO3 molar conc (Bld) 27 mmol/L Normal 21 - 32 [facility] Comment on above: Performed By: #### E MRAD ####NO LOCATION NEEDED Phosphate mass conc 3.6 mg/dL Normal 2.5 - 4.9 [facility] Comment on above: Result Comment: The performance characteristics of phosphorus testing in heparinized plasma have been validated by the individual laboratory site where testing is performed. Testing on heparinized plasma is not approved by the FDA; however, such approval is not necessary. Performed By: #### E MRAD ####NO LOCATION NEEDED Potassium molar conc 4.1 mmol/L Normal 3.5 - 5.3 [facility] Comment on above: Performed By: #### E MRAD ####NO LOCATION NEEDED Sodium molar conc 133 mmol/L Low 136 - 145 [facility] Comment on above: Performed By: #### E MRAD ####NO LOCATION NEEDED Urea nitrogen mass conc 21 mg/dL Normal 6 - 23 [facility] Comment on above: Performed By: #### E MRAD ####NO LOCATION NEEDED TH CHEST 1 VIEWon 04-02-2018 TH CHEST 1 VIEW Name: DON ELKINS STUDY:TH CHEST 1 VIEW; 04/02/2018 4:03 am INDICATION:Signs/Symptoms: AM rounds. COMPARISON:Chest radiograph from 04/01/2018 ORDERING CLINICIAN:TESSIE BYRD FINDINGS:Interval extubation and removal of enteric tube. Right IJ Lima-Ganzcatheter has also been removed. There has also [...] Electronically signed by: STANISLAV RADFORD MD Normal [facility] ARTERIAL FULL PANELon 2017 Anion gap 3 molar conc 10 mmol/L Normal 10 - 25 [facility] Comment on above: Performed By: #### E MRAD ####NO LOCATION NEEDED BASE EXCESS-BLOOD 1.9 mmol/L Normal -2.0 - 3.0 [facility] Comment on above: Performed By: #### E MRAD ####NO LOCATION NEEDED CALCIUM,IONIZED 1.12 mmol/L Normal 1.10 - 1.33 [facility] Comment on above: Performed By: #### E MRAD ####NO LOCATION NEEDED Chloride molar conc 100 mmol/L Normal 98 - 107 [facility] Comment on above: Performed By: #### E MRAD ####NO LOCATION NEEDED Glucose mass conc 151 mg/dL High 74 - 99 [facility] Comment on above: Performed By: #### E MRAD ####NO LOCATION NEEDED Hematocrit Auto Volume Fraction (Bld) 30.0 % Low 41.0 - 52.0 [facility] Comment on above: Performed By: #### E MRAD ####NO LOCATION NEEDED HGB,CALCULATED 10.2 g/dL Low 13.5 - 17.5 [facility] Comment on above: Performed By: #### E MRAD ####NO LOCATION NEEDED Lactate molar conc 2.3 mmol/L High 0.4 - 2.0 [facility] Comment on above: Performed By: #### E MRAD ####NO LOCATION NEEDED Oxygen ppres (BldA) 82 mm[Hg] Low 85 - 95 [facility] Comment on above: Performed By: #### E MRAD ####NO LOCATION NEEDED PCO2 41 mmHg Normal 38 - 42 [facility] Comment on above: Performed By: #### E MRAD ####NO LOCATION NEEDED pH (Bld) 7.42 [pH] Normal 7.38 - 7.42 [facility] Comment on above: Performed By: #### E MRAD ####NO LOCATION NEEDED Potassium molar conc 4.1 mmol/L Normal 3.5 - 5.3 [facility] Comment on above: Performed By: #### E MRAD ####NO LOCATION NEEDED RBC Auto #/vol (Bld) 26.6 mmol/L High 22.0 - 26.0 [facility] Comment on above: Performed By: #### E MRAD ####NO LOCATION NEEDED SO2 98 % Normal 94 - 100 [facility] Comment on above: Performed By: #### E MRAD ####NO LOCATION NEEDED Sodium molar conc 132 mmol/L Low 136 - 145 [facility] Comment on above: Performed By: #### E MRAD ####NO LOCATION NEEDED Anion gap 3 molar conc 8 mmol/L Low 10 - 25 [facility] Comment on above: Performed By: #### E MRAD ####NO LOCATION NEEDED BASE EXCESS-BLOOD 3.0 mmol/L Normal -2.0 - 3.0 [facility] Comment on above: Performed By: #### E MRAD ####NO LOCATION NEEDED CALCIUM,IONIZED 1.17 mmol/L Normal 1.10 - 1.33 [facility] Comment on above: Performed By: #### E MRAD ####NO LOCATION NEEDED Chloride molar conc 101 mmol/L Normal 98 - 107 [facility] Comment on above: Performed By: #### E MRAD ####NO LOCATION NEEDED Glucose mass conc 164 mg/dL High 74 - 99 [facility] Comment on above: Performed By: #### E MRAD ####NO LOCATION NEEDED Hematocrit Auto Volume Fraction (Bld) 29.0 % Low 41.0 - 52.0 [facility] Comment on above: Performed By: #### E MRAD ####NO LOCATION NEEDED HGB,CALCULATED 9.9 g/dL Low 13.5 - 17.5 [facility] Comment on above: Performed By: #### E MRAD ####NO LOCATION NEEDED Lactate molar conc 2.2 mmol/L High 0.4 - 2.0 [facility] Comment on above: Performed By: #### E MRAD ####NO LOCATION NEEDED Oxygen ppres (BldA) 75 mm[Hg] Low 85 - 95 [facility] Comment on above: Performed By: #### E MRAD ####NO LOCATION NEEDED PCO2 43 mmHg High 38 - 42 [facility] Comment on above: Performed By: #### E MRAD ####NO LOCATION NEEDED pH (Bld) 7.42 [pH] Normal 7.38 - 7.42 [facility] Comment on above: Performed By: #### E MRAD ####NO LOCATION NEEDED Potassium molar conc 4.3 mmol/L Normal 3.5 - 5.3 [facility] Comment on above: Performed By: #### E MRAD ####NO LOCATION NEEDED RBC Auto #/vol (Bld) 27.9 mmol/L High 22.0 - 26.0 [facility] Comment on above: Performed By: #### E MRAD ####NO LOCATION NEEDED SO2 97 % Normal 94 - 100 [facility] Comment on above: Performed By: #### E MRAD ####NO LOCATION NEEDED Sodium molar conc 133 mmol/L Low 136 - 145 [facility] Comment on above: Performed By: #### E MRAD ####NO LOCATION NEEDED Anion gap 3 molar conc 11 mmol/L Normal 10 - 25 [facility] Comment on above: Performed By: #### E MRAD ####NO LOCATION NEEDED BASE EXCESS-BLOOD 0.9 mmol/L Normal -2.0 - 3.0 [facility] Comment on above: Performed By: #### E MRAD ####NO LOCATION NEEDED CALCIUM,IONIZED 1.16 mmol/L Normal 1.10 - 1.33 [facility] Comment on above: Performed By: #### E MRAD ####NO LOCATION NEEDED Chloride molar conc 101 mmol/L Normal 98 - 107 [facility] Comment on above: Performed By: #### E MRAD ####NO LOCATION NEEDED Glucose mass conc 177 mg/dL High 74 - 99 [facility] Comment on above: Performed By: #### E MRAD ####NO LOCATION NEEDED Hematocrit Auto Volume Fraction (Bld) 31.0 % Low 41.0 - 52.0 [facility] Comment on above: Performed By: #### E MRAD ####NO LOCATION NEEDED HGB,CALCULATED 10.5 g/dL Low 13.5 - 17.5 [facility] Comment on above: Performed By: #### E MRAD ####NO LOCATION NEEDED Lactate molar conc 3.3 mmol/L High 0.4 - 2.0 [facility] Comment on above: Performed By: #### E MRAD ####NO LOCATION NEEDED Oxygen ppres (BldA) 73 mm[Hg] Low 85 - 95 [facility] Comment on above: Performed By: #### E MRAD ####NO LOCATION NEEDED PCO2 38 mmHg Normal 38 - 42 [facility] Comment on above: Performed By: #### E MRAD ####NO LOCATION NEEDED pH (Bld) 7.43 [pH] High 7.38 - 7.42 [facility] Comment on above: Performed By: #### E MRAD ####NO LOCATION NEEDED Potassium molar conc 4.2 mmol/L Normal 3.5 - 5.3 [facility] Comment on above: Performed By: #### E MRAD ####NO LOCATION NEEDED RBC Auto #/vol (Bld) 25.2 mmol/L Normal 22.0 - 26.0 [facility] Comment on above: Performed By: #### E MRAD ####NO LOCATION NEEDED SO2 96 % Normal 94 - 100 [facility] Comment on above: Performed By: #### E MRAD ####NO LOCATION NEEDED Sodium molar conc 133 mmol/L Low 136 - 145 [facility] Comment on above: Performed By: #### E MRAD ####NO LOCATION NEEDED Anion gap 3 molar conc 12 mmol/L Normal 10 - 25 [facility] Comment on above: Performed By: #### E MRAD ####NO LOCATION NEEDED BASE EXCESS-BLOOD 3.5 mmol/L High -2.0 - 3.0 [facility] Comment on above: Performed By: #### E MRAD ####NO LOCATION NEEDED CALCIUM,IONIZED 1.12 mmol/L Normal 1.10 - 1.33 [facility] Comment on above: Performed By: #### E MRAD ####NO LOCATION NEEDED Chloride molar conc 100 mmol/L Normal 98 - 107 [facility] Comment on above: Performed By: #### E MRAD ####NO LOCATION NEEDED Glucose mass conc 177 mg/dL High 74 - 99 [facility] Comment on above: Performed By: #### E MRAD ####NO LOCATION NEEDED Hematocrit Auto Volume Fraction (Bld) 32.0 % Low 41.0 - 52.0 [facility] Comment on above: Performed By: #### E MRAD ####NO LOCATION NEEDED HGB,CALCULATED 10.9 g/dL Low 13.5 - 17.5 [facility] Comment on above: Performed By: #### E MRAD ####NO LOCATION NEEDED Lactate molar conc 2.8 mmol/L High 0.4 - 2.0 [facility] Comment on above: Performed By: #### E MRAD ####NO LOCATION NEEDED Oxygen ppres (BldA) 85 mm[Hg] Normal 85 - 95 [facility] Comment on above: Performed By: #### E MRAD ####NO LOCATION NEEDED PCO2 44 mmHg High 38 - 42 [facility] Comment on above: Performed By: #### E MRAD ####NO LOCATION NEEDED pH (Bld) 7.42 [pH] Normal 7.38 - 7.42 [facility] Comment on above: Performed By: #### E MRAD ####NO LOCATION NEEDED Potassium molar conc 4.6 mmol/L Normal 3.5 - 5.3 [facility] Comment on above: Performed By: #### E MRAD ####NO LOCATION NEEDED RBC Auto #/vol (Bld) 28.5 mmol/L High 22.0 - 26.0 [facility] Comment on above: Performed By: #### E MRAD ####NO LOCATION NEEDED SO2 99 % Normal 94 - 100 [facility] Comment on above: Performed By: #### E MRAD ####NO LOCATION NEEDED Sodium molar conc 136 mmol/L Normal 136 - 145 [facility] Comment on above: Performed By: #### E MRAD ####NO LOCATION NEEDED Anion gap 3 molar conc 9 mmol/L Low 10 - 25 [facility] Comment on above: Performed By: #### E MRAD ####NO LOCATION NEEDED BASE EXCESS-BLOOD 2.4 mmol/L Normal -2.0 - 3.0 [facility] Comment on above: Performed By: #### E MRAD ####NO LOCATION NEEDED CALCIUM,IONIZED 1.10 mmol/L Normal 1.10 - 1.33 [facility] Comment on above: Performed By: #### E MRAD ####NO LOCATION NEEDED Chloride molar conc 102 mmol/L Normal 98 - 107 [facility] Comment on above: Performed By: #### E MRAD ####NO LOCATION NEEDED Glucose mass conc 166 mg/dL High 74 - 99 [facility] Comment on above: Performed By: #### E MRAD ####NO LOCATION NEEDED Hematocrit Auto Volume Fraction (Bld) 29.0 % Low 41.0 - 52.0 [facility] Comment on above: Performed By: #### E MRAD ####NO LOCATION NEEDED HGB,CALCULATED 9.9 g/dL Low 13.5 - 17.5 [facility] Comment on above: Performed By: #### E MRAD ####NO LOCATION NEEDED Lactate molar conc 3.1 mmol/L High 0.4 - 2.0 [facility] Comment on above: Performed By: #### E MRAD ####NO LOCATION NEEDED Oxygen ppres (BldA) 115 mm[Hg] High 85 - 95 [facility] Comment on above: Performed By: #### E MRAD ####NO LOCATION NEEDED PCO2 42 mmHg Normal 38 - 42 [facility] Comment on above: Performed By: #### E MRAD ####NO LOCATION NEEDED pH (Bld) 7.42 [pH] Normal 7.38 - 7.42 [facility] Comment on above: Performed By: #### E MRAD ####NO LOCATION NEEDED Potassium molar conc 4.4 mmol/L Normal 3.5 - 5.3 [facility] Comment on above: Performed By: #### E MRAD ####NO LOCATION NEEDED RBC Auto #/vol (Bld) 27.2 mmol/L High 22.0 - 26.0 [facility] Comment on above: Performed By: #### E MRAD ####NO LOCATION NEEDED SO2 99 % Normal 94 - 100 [facility] Comment on above: Performed By: #### E MRAD ####NO LOCATION NEEDED Sodium molar conc 134 mmol/L Low 136 - 145 [facility] Comment on above: Performed By: #### E MRAD ####NO LOCATION NEEDED Anion gap 3 molar conc 10 mmol/L Normal 10 - 25 [facility] Comment on above: Performed By: #### E MRAD ####NO LOCATION NEEDED BASE EXCESS-BLOOD 1.2 mmol/L Normal -2.0 - 3.0 [facility] Comment on above: Performed By: #### E MRAD ####NO LOCATION NEEDED CALCIUM,IONIZED 1.10 mmol/L Normal 1.10 - 1.33 [facility] Comment on above: Performed By: #### E MRAD ####NO LOCATION NEEDED Chloride molar conc 102 mmol/L Normal 98 - 107 [facility] Comment on above: Performed By: #### E MRAD ####NO LOCATION NEEDED Glucose mass conc 174 mg/dL High 74 - 99 [facility] Comment on above: Performed By: #### E MRAD ####NO LOCATION NEEDED Hematocrit Auto Volume Fraction (Bld) 30.0 % Low 41.0 - 52.0 [facility] Comment on above: Performed By: #### E MRAD ####NO LOCATION NEEDED HGB,CALCULATED 10.2 g/dL Low 13.5 - 17.5 [facility] Comment on above: Performed By: #### E MRAD ####NO LOCATION NEEDED Lactate molar conc 2.8 mmol/L High 0.4 - 2.0 [facility] Comment on above: Performed By: #### E MRAD ####NO LOCATION NEEDED Oxygen ppres (BldA) 133 mm[Hg] High 85 - 95 [facility] Comment on above: Performed By: #### E MRAD ####NO LOCATION NEEDED PCO2 41 mmHg Normal 38 - 42 [facility] Comment on above: Performed By: #### E MRAD ####NO LOCATION NEEDED pH (Bld) 7.41 [pH] Normal 7.38 - 7.42 [facility] Comment on above: Performed By: #### E MRAD ####NO LOCATION NEEDED Potassium molar conc 4.3 mmol/L Normal 3.5 - 5.3 [facility] Comment on above: Performed By: #### E MRAD ####NO LOCATION NEEDED RBC Auto #/vol (Bld) 26.0 mmol/L Normal 22.0 - 26.0 [facility] Comment on above: Performed By: #### E MRAD ####NO LOCATION NEEDED SO2 99 % Normal 94 - 100 [facility] Comment on above: Performed By: #### E MRAD ####NO LOCATION NEEDED Sodium molar conc 134 mmol/L Low 136 - 145 [facility] Comment on above: Performed By: #### E MRAD ####NO LOCATION NEEDED Anion gap 3 molar conc 13 mmol/L Normal 10 - 25 [facility] Comment on above: Performed By: #### E MRAD ####NO LOCATION NEEDED BASE EXCESS-BLOOD -0.2 mmol/L Normal -2.0 - 3.0 [facility] Comment on above: Performed By: #### E MRAD ####NO LOCATION NEEDED CALCIUM,IONIZED 1.09 mmol/L Low 1.10 - 1.33 [facility] Comment on above: Performed By: #### E MRAD ####NO LOCATION NEEDED Chloride molar conc 101 mmol/L Normal 98 - 107 [facility] Comment on above: Performed By: #### E MRAD ####NO LOCATION NEEDED Glucose mass conc 176 mg/dL High 74 - 99 [facility] Comment on above: Performed By: #### E MRAD ####NO LOCATION NEEDED Hematocrit Auto Volume Fraction (Bld) 37.0 % Low 41.0 - 52.0 [facility] Comment on above: Performed By: #### E MRAD ####NO LOCATION NEEDED HGB,CALCULATED 12.6 g/dL Low 13.5 - 17.5 [facility] Comment on above: Performed By: #### E MRAD ####NO LOCATION NEEDED Lactate molar conc 2.6 mmol/L High 0.4 - 2.0 [facility] Comment on above: Performed By: #### E MRAD ####NO LOCATION NEEDED Oxygen ppres (BldA) 91 mm[Hg] Normal 85 - 95 [facility] Comment on above: Performed By: #### E MRAD ####NO LOCATION NEEDED PCO2 41 mmHg Normal 38 - 42 [facility] Comment on above: Performed By: #### E MRAD ####NO LOCATION NEEDED pH (Bld) 7.39 [pH] Normal 7.38 - 7.42 [facility] Comment on above: Performed By: #### E MRAD ####NO LOCATION NEEDED Potassium molar conc 4.5 mmol/L Normal 3.5 - 5.3 [facility] Comment on above: Performed By: #### E MRAD ####NO LOCATION NEEDED RBC Auto #/vol (Bld) 24.8 mmol/L Normal 22.0 - 26.0 [facility] Comment on above: Performed By: #### E MRAD ####NO LOCATION NEEDED SO2 98 % Normal 94 - 100 [facility] Comment on above: Performed By: #### E MRAD ####NO LOCATION NEEDED Sodium molar conc 134 mmol/L Low 136 - 145 [facility] Comment on above: Performed By: #### E MRAD ####NO LOCATION NEEDED CALCIUM, IONIZEDon 8 CALCIUM,IONIZED 1.04 mmol/L Low 1.10 - 1.33 [facility] Comment on above: Result Comment: The performance [...] (RBC) 13.2 % Normal 11.5 - 14.5 [facility] Comment on above: Performed By: #### E MRAD ####NO LOCATION NEEDED Hematocrit Auto Volume Fraction (Bld) 29.9 % Low 41.0 - 52.0 [facility] Comment on above: Performed By: #### E MRAD ####NO LOCATION NEEDED Hemoglobin mass conc (Bld) 10.0 g/dL Low 13.5 - 17.5 [facility] Comment on above: Performed By: #### E MRAD ####NO LOCATION NEEDED MCHC Auto mass conc (RBC) 33.4 g/dL Normal 32.0 - 36.0 [facility] Comment on above: Performed By: #### E MRAD ####NO LOCATION NEEDED MCV Auto Entitic volume (RBC) 93 fL Normal 80 - 100 [facility] Comment on above: Performed By: #### E MRAD ####NO LOCATION NEEDED Nucleated RBC/100 WBC Ratio (Bld) 0.0 /100 WBC Normal 0.0-0.0 [facility] Comment on above: Performed By: #### E MRAD ####NO LOCATION NEEDED Platelets Auto #/vol (Bld) 144 10*3/uL Low 150 - 450 [facility] Comment on above: Performed By: #### E MRAD ####NO LOCATION NEEDED RBC Auto #/vol (Bld) 3.23 x10E12/L Low 4.50 - 5.90 [facility] Comment on above: Performed By: #### E MRAD ####NO LOCATION NEEDED WBC Auto #/vol (Bld) 11.4 10*3/uL High 4.4 - 11.3 [facility] Comment on above: Performed By: #### E MRAD ####NO LOCATION NEEDED Erythrocyte distribution width Auto Ratio (RBC) 13.1 % Normal 11.5 - 14.5 [facility] Comment on above: Performed By: #### E MRAD ####NO LOCATION NEEDED Hematocrit Auto Volume Fraction (Bld) 32.1 % Low 41.0 - 52.0 [facility] Comment on above: Performed By: #### E MRAD ####NO LOCATION NEEDED Hemoglobin mass conc (Bld) 10.9 g/dL Low 13.5 - 17.5 [facility] Comment on above: Performed By: #### E MRAD ####NO LOCATION NEEDED MCHC Auto mass conc (RBC) 34.0 g/dL Normal 32.0 - 36.0 [facility] Comment on above: Performed By: #### E MRAD ####NO LOCATION NEEDED MCV Auto Entitic volume (RBC) 92 fL Normal 80 - 100 [facility] Comment on above: Performed By: #### E MRAD ####NO LOCATION NEEDED Nucleated RBC/100 WBC Ratio (Bld) 0.0 /100 WBC Normal 0.0-0.0 [facility] Comment on above: Performed By: #### E MRAD ####NO LOCATION NEEDED Platelets Auto #/vol (Bld) 158 10*3/uL Normal 150 - 450 [facility] Comment on above: Performed By: #### E MRAD ####NO LOCATION NEEDED RBC Auto #/vol (Bld) 3.50 x10E12/L Low 4.50 - 5.90 [facility] Comment on above: Performed By: #### E MRAD ####NO LOCATION NEEDED WBC Auto #/vol (Bld) 9.7 10*3/uL Normal 4.4 - 11.3 [facility] Comment on above: Performed By: #### E MRAD ####NO LOCATION NEEDED COAGULATION SCREENon 018 aPTT Coag time (Bld) 25 s Low 28 - 38 [facility] Comment on above: Result Comment: Note new reference range as of 03/10/2018. THE APTT IS NO LONGER USED FOR MONITORING UNFRACTIONATED HEPARIN THERAPY. FOR MONITORING HEPARIN THERAPY, USE THE HEPARIN ASSAY. Performed By: #### E MRAD ####NO LOCATION NEEDED INR Coag RelTime (PPP) 1.3 {INR} High 0.9 - 1.1 [facility] Comment on above: Performed By: #### E MRAD ####NO LOCATION NEEDED Prothrombin time (PT) Coag time (PPP) 14.0 s High 9.7 - 12.7 [facility] Comment on above: Result Comment: Note new reference range as of 03/10/2018. Performed By: #### E MRAD ####NO LOCATION NEEDED CORTISOL, P.M.on 04-01-2018 CORTISOL, P.M. 22.4 ug/dL High 2.5 - 10.0 [facility] Comment on above: Performed By: #### E MRAD ####NO LOCATION NEEDED CORTISOL, P.M. 34.8 ug/dL High 2.5 - 10.0 [facility] Comment on above: Performed By: #### E [...] is well controlled. Objective Data: Objective InformationT [id number]/5997 %Date/Time04/01 4: 6: 6: 14: 6:00Range(36.5C - [...] sec/cm-5)70(68 - 74)03/31 19:00 Direct Arterial Blood GbcnlcyxTinaymdn445(129 - 161)04/01 6:45Diastolic (mm Hg)67(53 - 70)04/01 6:45Mean (mm Hg)91(76 - 96)04/01 6:45Pulse Pressure (mm Hg)85(71 - 96)04/01 6:53Bzuzynmt591(129 - 161)04/01 6:45Diastolic (mm Hg)67(53 - 70)04/01 6:45Mean (mm Hg)91(76 - 96)04/01 6:45Pulse Pressure (mm Hg)85(71 - 96)04/01 6:45 YLAQoejodlu46(27 - 39)04/01 6:00Diastolic (mm Hg)12(10 - 22)04/01 6:00Mean (mm Hg)18(18 - 29)04/01 6:00 ---- Intake and Output -----Mn/Dy/Year TimeIntakeOutputNetNov 2017 6:00 am991.1458761Bkk 2017 10:00 tf9909.34264545Mpi 2017 2:00 pm000 The Intake and Output Totals for the last 24 hours are:[id number] Drain and tube details (included in I&O [...] Canceled Recent Arterial Blood Gas Results 04/01/2018 04:90pN667 24 h range: ( 63 - 392 )pH7.42 24 h range: ( 7.28 - 7.42 )rBI514 24 h range: ( 38 - 51 )SO299 24 h range: ( 91 - 100 )Base Excess3.5 24 h range: ( -4.5 - 3.5 )Yfdrsdzdlcj34.5 24 h range: ( 22 - 28.5 [...] history of CAD, HTN, HLD, DM2, Gerd, Shasta's, andhypothyroid presents from the OR s/p CABG [...] - dcLeft Filiberto Richey Dispo: Continue SICU care.#[id number] Code Status: Code StatusFull Code SCIP:Urinary Catheter Removed Post-Op Day 2: noReason Patient Needs Her: Strict I&0Patient on Beta Danica Prior to Admission: noProphylactic antibiotics scheduled to be discontinued with 24 hr of anesthesiaend time (48 hr for cardiac surgery): yesType of VTE Prophylaxis Ordered: Subcutaneous heparin and SCDs Signature/Cosignature/Attestat ion:Comments/ Additional Jyttyfbh18n/o male s/p CABG x3 with Dr Gaston. [...] 01-Apr-2018 11:56 by Cristiano Wynne (Resident)) Normal [facility] Daily Progress Note-Endocrin ologyon 04-01-2018 Protein mass [...] Intake and Output -----Mn/Dy/Year TimeIntakeOutputNetNov 2017 6:00 am991.0357339Bwv 2017 10:00 [id number] 2017 2:00 pm000 The Intake and Output Totals for the last 24 hours are:[id number] Physical Exam: Constitutional: Well developed, awake/alert/oriented x3, no distress, alert andcooperativeGastrointestinal : Nondistended, soft, non-tender, no rebound tenderness orguarding, no masses palpable, no organomegaly, +BS, no bruitsSkin: Warm and dry, no lesions, no rashes Assessment and Plan:Assessment: Mr. Elkins is a 67 yo WM with no known history of CAD, who has a past medicalhistory of HTN, HLD, T2DM, Shasta's disease, hypothyroidism, COPD, AKASH onCPAP, prostate ca s/p prostatectomy in 2011, and psoriasis [facility] from [facility] on 03/18 forCA eval.Endocrine consulted fr evaluation of Shasta disease and treatment periop Patient was on supra-therapeutic dose of HCT 20-0-20 , fludrocortisone 0.1 ,mgdailyPatient has uncontrolled HTN and uncontrolled BSIVC filter placed on 03/23 1. Shasta's Disease-- Fludrocortisone 0.05 mg 4 times weekly [...] drawing blood at 9 pm--Will follow 2. S2WF--RIvvca Glargine today as : 20 units QHS and L6 TIDAC-Please change ISS correction to 2 units per 50 >150--Will follow Please page with questions [phone] Patient seen and examined, plan discussed with [...] patient (as noted in the above attestation) [id number] Electronic Signatures:Starr Quevedo) (Signed 02-Apr-2018 10:02)Authored: Signature/Cosignature/Attestat ionCo-Signer: Service, Subjective Data, Objective Data, Assessment and Plan,Signature/Cosignature/Att estationHasmukh Stephenson (Resident)) (Signed 01-Apr-2018 15:26)Authored: Service, Subjective Data, Objective Data, Assessment and Plan,Signature/Cosignature/Att estation Last Updated: 02-Apr-2018 10:02 by Starr Quevedo) Normal [facility] Discharge Acoqhke1po 11-14-2 018 Protein mass conc Discharge Orders:Ant icipated Discharge Date: Anticipated Discharge [id number] Problem List: Prelim Disch Dx: History of Shasta's disease: Catalog Name: Personal history of otherendocrine, nutritional and metabolic disease Pulmonary embolism, bilateral: Catalog Name: Other pulmonary embolismwithout acute cor pulmonale S/P IVC filter: Onset Date: 23-Mar-2018, Catalog Name: Presence of othervascular implants and grafts, Description: by Severiano Stapleton at [facility] S/P CABG x 3: Onset Date: 31-Mar-2018, Catalog Name: Presence ofaortocoronary bypass graft, Description: by Jc Gaston at [facility] CAD (coronary artery disease): Catalog Name: Atherosclerotic heart diseaseof [place] coronary artery without angina pectoris Significant Events:Surgical [...] have your follow up visit with your software applications engineer. They will clear youto exercise and further refer you to an outpatient cardiac rehab facility. Labs 1: Lab Test(s)Basic Metabolic Panel, CBC, Magnesium Date To Be DrawnOnce the week following discharge by home care Call Results ToDr. Sal Sabillon and Dr. Levi Pisano CommentsINRs to be done by [facility] coumadin clinic Oxygen:Other Instructions Incentive spirometer [...] obtained from the Primary Care Physician or Jackscrew Worker. - For chest tightness or pain, extreme [...] and symptoms of Heart Failure: call your Jackscrew Worker if you haveweight gain of 3 pounds or more in less than 3 days; shortness of breath atrest, with activity, or when lying flat; dizziness or fainting. Notify Cardiac Surgeon's office of any readmission to the hospital beforefollow-up appointment with Cardiac Surgeon. Diet: DietAdult Diabetic, Cardiac Hospital Course (Home Care/Gold Form):Hospital Course: Hospital Course: include significant abnormal lab qebpcu58 yo WM with no prior history of CAD, who has a past medical history of HTN,HLD, T2DM, Shasta's disease, hypothyroidism, COPD, AKASH on CPAP, prostate Spring/p prostatectomy in 2011, and psoriasis [facility] for CABG eval. Ptpresented to Girdler with chest pressure and dyspnea. He as found to havebilat PEs, was started on Heparin gtt, and transferred to [facility]. He wasfound to have a troponin leak at 2.25. Cardiology was consulted and the patientwas diagnosed with ACS, NSTEMI. He underwent a TTE and cath. He had normal EF,mild AI, and triple vessel CAD so was transferred to [facility] for CABG eval.Pulm consulted for PE workup. Pt required unfractionated heparin infusion for7-10 days to take advantage of intrinsic fibrinolysis and clot stabilization,as well as an IVC filter.Endocrine consulted for evaluation of Shasta disease and treatment periop.Also managed DM. 03/23/2018 [...] post op volume overload with Lasix; preop oqpfhg416.8 kg; day of discharge wt 107.5 kg- IVC filter was placed on 03/23 preop, will be following up with vascular forretrieval- heparin gtt bridge to coumadin was started per Dr. Gaston for unprovoked PEs asper Pulmonary recs; needs at least 6 months of anticoagulation; [facility]- PT recs home with PT- anticipate discharge home with homebound teacher and PT- software educator met with patient 04/07 to discuss discharge instructionsand care- patient had no complaints at discharge and all questions were answered _ HISTORYPMH: HTN, HLD, T2DM, Shasta's disease, hypothyroidism, COPD, AKASH on CPAP,prostate ca s/p prostatectomy in 2011, psoriasis, remote hepatitis B, priorGERD, lumbar Degenerative disk disease, arthritis, kidney stones (current,small), cataract, plantar fasciitis PSH: prostatectomy 2011, R cataract surgery, cholecystectomy, appendectomy,sinus surgery, vasectomy, bilat carpal tunnel release surgery, ganglion cystremoval from hands, cystoscopy 2 weeks ago for microscopic hematuria, rootcanal 2 weeks ago. 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 [...] Care Agency: [facility] Ordered: RN/BACTERIOLOGY RESEARCH ASSISTANT, PTFace to Face Encounter Completed: yesDate of Encounter: [id number] Necessity for Homecare (based on clinical findings):Short-term detention is needed to monitor for signs and [...] to determine Wound Care: [facility] FINAL REVIEW of Orders:Final Review: Final Review of Medication Reconciliation and Orders Yangby ROSA Reviewing ProviderTaylZACK López at 07-Apr-2018 14:22:59 Name/Contact Info for Questions About Discharge OrdersDr Gaston'sophie [phone] Appointments:Coumadin (Warfarin) Follow-Up Monitoring[facility] Date/Time next PT/INR [id number] 13:45 Phone [phone]; [address] [facility] [address] Please bring insurancecard, drivers license, and medication list CommentsPlease arrive at 1:45 PM for your appt. goal INR 2-3; need at least6 months of coumadin for PE; Dr Pisano is managing Follow-Up Appointment 01: Physician/Dept/Evgeny Gaston - cardiac surgeon Scheduled Date/[id number] 14:[address] [address] - 2pm appointment [facility] [address], [address] Phone NumberDr Sy's office [phone] Follow-Up Appointment 02: Physician/Dept/Trell. Sal Sabillon PCP Scheduled Date/[id number] 11:[address], [place]. [address] Phone [phone] CommentsPlease arrive 10-15 minutes early, bring photo ID, insurance card,discharge summary, and list of current medications and dosages. If unable tokeep this appointment, please call to cancel. Follow-Up Appointment 03: Physician/Dept/ServiceDr. Levi Pisano, Cardiology Scheduled Date/[id number] 14:[address] [place] [address], [facility] [address], [address]. [address] [phone] Phone [phone] CommentsPlease arrive 10-15 minutes early, bring photo ID, insurance card,discharge summary, and list of current medications and dosages. If unable tokeep this appointment, please call to cancel. Follow-Up Appointment 04: Physician/Dept/MadayDr. Xavier Lake, Endocrinology Scheduled Date/[id number] 09:40 [address], [place]. [address] Phone [phone] CommentsPlease arrive 10-15 minutes early, bring photo ID, insurance card,discharge summary, and list of current medications and dosages. If unable tokeep this appointment, please call to cancel. Follow-Up Appointment 05: Physician/Dept/ServiceDr. Severiano Stapleton, Vascular Surgery Scheduled Date/[id number] 15:[address] [address] Phone [phone] CommentsPlease arrive 10-15 minutes early, bring photo ID, insurance card,discharge summary, and list of current medications and dosages. If unable tokeep this appointment, please call to cancel. Electronic Signatures:Mary Munroe (SENIOR SYSTEMS ENGINEER-SURGICAL SUPERVISOR) (Signed 06-Apr-2018 18:53)Authored: Discharge Orders, CABG / Valve, Hospital Course (Home Care/GoldForm), Home Care Orders, Provider FINAL REVIEW of Orders, AppointmentsLillie Elder (CLIN COOR) (Signed 01-Apr-2018 14:23)Authored: Discharge Orders, Gold Form - Fruit Buyer SummaryKarolina Foster (RN) (Signed 02-Apr-2018 13:41)Authored: Discharge OrdersMonet Alcaraz (PT SVS REP) (Signed 07-Apr-2018 14:04)Authored: Alexandra Correa (PAC) (Signed 07-Apr-2018 14:22)Authored: Discharge Orders, CABG / Valve, Hospital Course (Home Care/GoldForm), Home Care Orders, Provider FINAL REVIEW of Orders, Appointments Last Updated: 07-Apr-2018 14:22 by Alexandra Milligan (PAC) Normal [facility] GLUCOSE-POCTon 04-01-2018 Glucose mass conc 174 mg/dL High 74 - 99 [facility] Comment on above: Performed By: #### E MRAD ####NO LOCATION NEEDED Glucose mass conc 152 mg/dL High 74 - 99 [facility] Comment on above: Result Comment: Glu2 : Fingertip - Capillar Performed By: #### E MRAD ####NO LOCATION NEEDED Glucose mass conc 181 mg/dL High 74 - 99 [facility] Comment on above: Result Comment: Glu2 : Fingertip - Capillar Performed By: #### E MRAD ####NO LOCATION NEEDED Glucose mass conc 228 mg/dL High 74 - 99 [facility] Comment on above: Result Comment: Glu2 : Fingertip - Capillar Performed By: #### E MRAD ####NO LOCATION NEEDED Glucose mass conc 168 mg/dL High 74 - 99 [facility] Comment on above: Performed By: #### E MRAD ####NO LOCATION NEEDED Glucose mass conc 175 mg/dL High 74 - 99 [facility] Comment on above: Performed By: #### E MRAD ####NO LOCATION NEEDED Glucose mass conc 197 mg/dL High 74 - 99 [facility] Comment on above: Performed By: #### E MRAD ####NO LOCATION NEEDED MAGNESIUMon 04-01-2018 Magnesium mass conc 2.15 mg/dL Normal 1.60 - 2.40 [facility] Comment on above: Performed By: #### E MRAD ####NO LOCATION NEEDED Magnesium mass conc 2.30 mg/dL Normal 1.60 - 2.40 [facility] Comment on above: Performed By: #### E MRAD ####NO LOCATION NEEDED RENAL FUNCTION PANELon 04-01 Albumin mass conc 3.7 g/dL Normal 3.4 - 5.0 [facility] Comment on above: Performed By: #### E MRAD ####NO LOCATION NEEDED Anion gap 3 molar conc 11 mmol/L Normal 10 - 20 [facility] Comment on above: Performed By: #### E MRAD ####NO LOCATION NEEDED Calcium mass conc 8.8 mg/dL Normal 8.6 - 10.6 [facility] Comment on above: Performed By: #### E MRAD ####NO LOCATION NEEDED Chloride molar conc 99 mmol/L Normal 98 - 107 [facility] Comment on above: Performed By: #### E MRAD ####NO LOCATION NEEDED Creatinine mass conc 1.35 mg/dL High 0.50 - 1.30 [facility] Comment on above: Performed By: #### E MRAD ####NO LOCATION NEEDED GFR- AM. 64 mL/min/1.73m2 Normal >60 [facility] Comment on above: Result Comment: CALC ULATIONS OF ESTIMATED GFR ARE PERFORMED USING THE MDRD STUDY EQUATION FOR THE IDMS-TRACEABLE CREATININE METHODS. CLIN CHEM 2007;53:766-72 Performed By: #### E MRAD ####NO LOCATION NEEDED GFR-NON AM. 53 mL/min/1.73m2 Abnormal >60 [facility] Comment on above: Performed By: #### E MRAD ####NO LOCATION NEEDED Glucose mass conc 169 mg/dL High 74 - 99 [facility] Comment on above: Performed By: #### E MRAD ####NO LOCATION NEEDED HCO3 molar conc (Bld) 28 mmol/L Normal 21 - 32 [facility] Comment on above: Performed By: #### E MRAD ####NO LOCATION NEEDED Phosphate mass conc 3.3 mg/dL Normal 2.5 - 4.9 [facility] Comment on above: Result Comment: The performance characteristics of phosphorus testing in heparinized plasma have been validated by the individual laboratory site where testing is performed. Testing on heparinized plasma is not approved by the FDA; however, such approval is not necessary. Performed By: #### E MRAD ####NO LOCATION NEEDED Potassium molar conc 4.2 mmol/L Normal 3.5 - 5.3 [facility] Comment on above: Performed By: #### E MRAD ####NO LOCATION NEEDED Sodium molar conc 134 mmol/L Low 136 - 145 [facility] Comment on above: Performed By: #### E MRAD ####NO LOCATION NEEDED Urea nitrogen mass conc 20 mg/dL Normal 6 - 23 [facility] Comment on above: Performed By: #### E MRAD ####NO LOCATION NEEDED Albumin mass conc Canceled Normal [facility] Comment on above: Order Comment: TEST RENAL FUNCTION PANEL WAS CANCELLED, 04/01/2018 07:29 DUPLICATE ORDER. Performed By: #### E MRAD ####NO LOCATION NEEDED Anion gap 3 molar conc Canceled Normal [facility] Comment on above: Order Comment: TEST RENAL FUNCTION PANEL WAS CANCELLED, 04/01/2018 07:29 DUPLICATE ORDER. Performed By: #### E MRAD ####NO LOCATION NEEDED Calcium mass conc Canceled Normal [facility] Comment on above: Order Comment: TEST RENAL FUNCTION PANEL WAS CANCELLED, 04/01/2018 07:29 DUPLICATE ORDER. Performed By: #### E MRAD ####NO LOCATION NEEDED Chloride molar conc Canceled Normal [facility] Comment on above: Order Comment: TEST RENAL FUNCTION PANEL WAS CANCELLED, 04/01/2018 07:29 DUPLICATE ORDER. Performed By: #### E MRAD ####NO LOCATION NEEDED Creatinine mass conc Canceled Normal [facility] Comment on above: Order Comment: TEST RENAL FUNCTION PANEL WAS CANCELLED, 04/01/2018 07:29 DUPLICATE ORDER. Performed By: #### E MRAD ####NO LOCATION NEEDED GFR- AM. Canceled Normal [facility] Comment on above: Order Comment: TEST RENAL FUNCTION PANEL WAS CANCELLED, 04/01/2018 07:29 DUPLICATE ORDER. Result Comment: CALC ULATIONS OF ESTIMATED GFR ARE PERFORMED USING THE MDRD STUDY EQUATION FOR THE IDMS-TRACEABLE CREATININE METHODS. CLIN CHEM 2007;53:766-72 Performed By: #### E MRAD ####NO LOCATION NEEDED GFR-NON AM. Canceled Normal [facility] Comment on above: Order Comment: TEST RENAL FUNCTION PANEL WAS CANCELLED, 04/01/2018 07:29 DUPLICATE ORDER. Performed By: #### E MRAD ####NO LOCATION NEEDED Glucose mass conc Canceled Normal [facility] Comment on above: Order Comment: TEST RENAL FUNCTION PANEL WAS CANCELLED, 04/01/2018 07:29 DUPLICATE ORDER. Performed By: #### E MRAD ####NO LOCATION NEEDED HCO3 molar conc (Bld) Canceled Normal [facility] Comment on above: Order Comment: TEST RENAL FUNCTION PANEL WAS CANCELLED, 04/01/2018 07:29 DUPLICATE ORDER. Performed By: #### E MRAD ####NO LOCATION NEEDED Phosphate mass conc Canceled Normal [facility] Comment on above: Order Comment: TEST RENAL [...] LOCATION NEEDED Potassium molar conc Canceled Normal [facility] Comment on above: Order Comment: TEST RENAL FUNCTION PANEL WAS CANCELLED, 04/01/2018 07:29 DUPLICATE ORDER. Performed By: #### E MRAD ####NO LOCATION NEEDED Sodium molar conc Canceled Normal [facility] Comment on above: Order Comment: TEST RENAL FUNCTION PANEL WAS CANCELLED, 04/01/2018 07:29 DUPLICATE ORDER. Performed By: #### E MRAD ####NO LOCATION NEEDED Urea nitrogen mass conc Canceled Normal [facility] Comment on above: Order Comment: TEST RENAL FUNCTION PANEL WAS CANCELLED, 04/01/2018 07:29 DUPLICATE ORDER. Performed By: #### E MRAD ####NO LOCATION NEEDED Albumin mass conc 3.7 g/dL Normal 3.4 - 5.0 [facility] Comment on above: Performed By: #### E MRAD ####NO LOCATION NEEDED Anion gap 3 molar conc 15 mmol/L Normal 10 - 20 [facility] Comment on above: Performed By: #### E MRAD ####NO LOCATION NEEDED Calcium mass conc 8.7 mg/dL Normal 8.6 - 10.6 [facility] Comment on above: Performed By: #### E MRAD ####NO LOCATION NEEDED Chloride molar conc 100 mmol/L Normal 98 - 107 [facility] Comment on above: Performed By: #### E MRAD ####NO LOCATION NEEDED Creatinine mass conc 1.30 mg/dL Normal 0.50 - 1.30 [facility] Comment on above: Performed By: #### E MRAD ####NO LOCATION NEEDED GFR- AM. 67 mL/min/1.73m2 Normal >60 [facility] Comment on above: Result Comment: CALC ULATIONS OF ESTIMATED GFR ARE PERFORMED USING THE MDRD STUDY EQUATION FOR THE IDMS-TRACEABLE CREATININE METHODS. CLIN CHEM 2007;53:766-72 Performed By: #### E MRAD ####NO LOCATION NEEDED GFR-NON AM. 55 mL/min/1.73m2 Abnormal >60 [facility] Comment on above: Performed By: #### E MRAD ####NO LOCATION NEEDED Glucose mass conc 167 mg/dL High 74 - 99 [facility] Comment on above: Performed By: #### E MRAD ####NO LOCATION NEEDED HCO3 molar conc (Bld) 26 mmol/L Normal 21 - 32 [facility] Comment on above: Performed By: #### E MRAD ####NO LOCATION NEEDED Phosphate mass conc 4.0 mg/dL Normal 2.5 - 4.9 [facility] Comment on above: Result Comment: The performance characteristics of phosphorus testing in heparinized plasma have been validated by the individual laboratory site where testing is performed. Testing on heparinized plasma is not approved by the FDA; however, such approval is not necessary. Performed By: #### E MRAD ####NO LOCATION NEEDED Potassium molar conc 4.4 mmol/L Normal 3.5 - 5.3 [facility] Comment on above: Performed By: #### E MRAD ####NO LOCATION NEEDED Sodium molar conc 137 mmol/L Normal 136 - 145 [facility] Comment on above: Performed By: #### E MRAD ####NO LOCATION NEEDED Urea nitrogen mass conc 20 mg/dL Normal 6 - 23 [facility] Comment on above: Performed By: #### E MRAD ####NO LOCATION NEEDED TH CHEST 1 VIEWon 04-01-2018 TH CHEST 1 VIEW Name: DON ELKINS STUDY:TH CHEST 1 VIEW; 04/01/2018 3:56 am INDICATION:Signs/Symptoms: CT surgey. COMPARISON:03/31/2018 ORDERING CLINICIAN:GERMAN JACK FINDINGS:ET tube is terminating at the level of clavicle heads. Enteric tubeis in place with the tip not included. Right IJ Lima-Jose catheter isterminating in the right main pulmonary [...] Electronically signed by: EDYTA ARIAS MD Normal [facility] ACT-HIGH RANGEon 03-31-2018 ACT-HIGH RANGE 111 SECONDS Normal 91 - 152 [facility] Comment on above: Performed By: #### E MRAD ####NO LOCATION NEEDED ACT-HIGH RANGE 456 SECONDS High 91 - 152 [facility] Comment on above: Performed By: #### E MRAD ####NO LOCATION NEEDED ACT-HIGH RANGE 415 SECONDS High 91 - 152 [facility] Comment on above: Performed By: #### E MRAD ####NO LOCATION NEEDED ACT-HIGH RANGE 555 SECONDS High 91 - 152 [facility] Comment on above: Performed By: #### E MRAD ####NO LOCATION NEEDED ACT-HIGH RANGE 440 SECONDS High 91 - 152 [facility] Comment on above: Performed By: #### E MRAD ####NO LOCATION NEEDED ACT-HIGH RANGE 437 SECONDS High 91 - 152 [facility] Comment on above: Performed By: #### E MRAD ####NO LOCATION NEEDED ACT-HIGH RANGE 117 SECONDS Normal 91 - 152 [facility] Comment on above: Performed By: #### E MRAD ####NO LOCATION NEEDED ARTERIAL BLOOD GASon 018 BASE EXCESS-BLOOD -3.2 mmol/L Low -2.0 - 3.0 [facility] Comment on above: Performed By: #### E MRAD ####NO LOCATION NEEDED Oxygen ppres (BldA) 63 mm[Hg] Low 85 - 95 [facility] Comment on above: Performed By: #### E MRAD ####NO LOCATION NEEDED PCO2 51 mmHg High 38 - 42 [facility] Comment on above: Performed By: #### E MRAD ####NO LOCATION NEEDED pH (Bld) 7.28 [pH] Low 7.38 - 7.42 [facility] Comment on above: Performed By: #### E MRAD ####NO LOCATION NEEDED RBC Auto #/vol (Bld) 24.0 mmol/L Normal 22.0 - 26.0 [facility] Comment on above: Performed By: #### E MRAD ####NO LOCATION NEEDED SO2 91 % Low 94 - 100 [facility] Comment on above: Performed By: #### E MRAD ####NO LOCATION NEEDED ARTERIAL FULL PANELon 2017 Anion gap 3 molar conc 9 mmol/L Low 10 - 25 [facility] Comment on above: Performed By: #### E MRAD ####NO LOCATION NEEDED BASE EXCESS-BLOOD 0.3 mmol/L Normal -2.0 - 3.0 [facility] Comment on above: Performed By: #### E MRAD ####NO LOCATION NEEDED CALCIUM,IONIZED 1.09 mmol/L Low 1.10 - 1.33 [facility] Comment on above: Performed By: #### E MRAD ####NO LOCATION NEEDED Chloride molar conc 103 mmol/L Normal 98 - 107 [facility] Comment on above: Performed By: #### E MRAD ####NO LOCATION NEEDED Glucose mass conc 159 mg/dL High 74 - 99 [facility] Comment on above: Performed By: #### E MRAD ####NO LOCATION NEEDED Hematocrit Auto Volume Fraction (Bld) 32.0 % Low 41.0 - 52.0 [facility] Comment on above: Performed By: #### E MRAD ####NO LOCATION NEEDED HGB,CALCULATED 10.9 g/dL Low 13.5 - 17.5 [facility] Comment on above: Performed By: #### E MRAD ####NO LOCATION NEEDED Lactate molar conc 2.4 mmol/L High 0.4 - 2.0 [facility] Comment on above: Performed By: #### E MRAD ####NO LOCATION NEEDED Oxygen ppres (BldA) 82 mm[Hg] Low 85 - 95 [facility] Comment on above: Performed By: #### E MRAD ####NO LOCATION NEEDED PCO2 42 mmHg Normal 38 - 42 [facility] Comment on above: Performed By: #### E MRAD ####NO LOCATION NEEDED pH (Bld) 7.39 [pH] Normal 7.38 - 7.42 [facility] Comment on above: Performed By: #### E MRAD ####NO LOCATION NEEDED Potassium molar conc 4.5 mmol/L Normal 3.5 - 5.3 [facility] Comment on above: Performed By: #### E MRAD ####NO LOCATION NEEDED RBC Auto #/vol (Bld) 25.4 mmol/L Normal 22.0 - 26.0 [facility] Comment on above: Performed By: #### E MRAD ####NO LOCATION NEEDED SO2 98 % Normal 94 - 100 [facility] Comment on above: Performed By: #### E MRAD ####NO LOCATION NEEDED Sodium molar conc 133 mmol/L Low 136 - 145 [facility] Comment on above: Performed By: #### E MRAD ####NO LOCATION NEEDED Anion gap 3 molar conc 11 mmol/L Normal 10 - 25 [facility] Comment on above: Performed By: #### E MRAD ####NO LOCATION NEEDED BASE EXCESS-BLOOD -0.5 mmol/L Normal -2.0 - 3.0 [facility] Comment on above: Performed By: #### E MRAD ####NO LOCATION NEEDED CALCIUM,IONIZED 1.13 mmol/L Normal 1.10 - 1.33 [facility] Comment on above: Performed By: #### E MRAD ####NO LOCATION NEEDED Chloride molar conc 104 mmol/L Normal 98 - 107 [facility] Comment on above: Performed By: #### E MRAD ####NO LOCATION NEEDED Glucose mass conc 169 mg/dL High 74 - 99 [facility] Comment on above: Performed By: #### E MRAD ####NO LOCATION NEEDED Hematocrit Auto Volume Fraction (Bld) 32.0 % Low 41.0 - 52.0 [facility] Comment on above: Performed By: #### E MRAD ####NO LOCATION NEEDED HGB,CALCULATED 10.9 g/dL Low 13.5 - 17.5 [facility] Comment on above: Performed By: #### E MRAD ####NO LOCATION NEEDED Lactate molar conc 2.5 mmol/L High 0.4 - 2.0 [facility] Comment on above: Performed By: #### E MRAD ####NO LOCATION NEEDED Oxygen ppres (BldA) 72 mm[Hg] Low 85 - 95 [facility] Comment on above: Performed By: #### E MRAD ####NO LOCATION NEEDED PCO2 43 mmHg High 38 - 42 [facility] Comment on above: Performed By: #### E MRAD ####NO LOCATION NEEDED pH (Bld) 7.37 [pH] Low 7.38 - 7.42 [facility] Comment on above: Performed By: #### E MRAD ####NO LOCATION NEEDED Potassium molar conc 4.8 mmol/L Normal 3.5 - 5.3 [facility] Comment on above: Performed By: #### E MRAD ####NO LOCATION NEEDED RBC Auto #/vol (Bld) 24.9 mmol/L Normal 22.0 - 26.0 [facility] Comment on above: Performed By: #### E MRAD ####NO LOCATION NEEDED SO2 96 % Normal 94 - 100 [facility] Comment on above: Performed By: #### E MRAD ####NO LOCATION NEEDED Sodium molar conc 135 mmol/L Low 136 - 145 [facility] Comment on above: Performed By: #### E MRAD ####NO LOCATION NEEDED Anion gap 3 molar conc 14 mmol/L Normal 10 - 25 [facility] Comment on above: Performed By: #### E MRAD ####NO LOCATION NEEDED BASE EXCESS-BLOOD -1.6 mmol/L Normal -2.0 - 3.0 [facility] Comment on above: Performed By: #### E MRAD ####NO LOCATION NEEDED CALCIUM,IONIZED 1.19 mmol/L Normal 1.10 - 1.33 [facility] Comment on above: Performed By: #### E MRAD ####NO LOCATION NEEDED Chloride molar conc 104 mmol/L Normal 98 - 107 [facility] Comment on above: Performed By: #### E MRAD ####NO LOCATION NEEDED Glucose mass conc 184 mg/dL High 74 - 99 [facility] Comment on above: Performed By: #### E MRAD ####NO LOCATION NEEDED Hematocrit Auto Volume Fraction (Bld) 32.0 % Low 41.0 - 52.0 [facility] Comment on above: Performed By: #### E MRAD ####NO LOCATION NEEDED HGB,CALCULATED 10.9 g/dL Low 13.5 - 17.5 [facility] Comment on above: Performed By: #### E MRAD ####NO LOCATION NEEDED Lactate molar conc 2.9 mmol/L High 0.4 - 2.0 [facility] Comment on above: Performed By: #### E MRAD ####NO LOCATION NEEDED Oxygen ppres (BldA) 79 mm[Hg] Low 85 - 95 [facility] Comment on above: Performed By: #### E MRAD ####NO LOCATION NEEDED PCO2 45 mmHg High 38 - 42 [facility] Comment on above: Performed By: #### E MRAD ####NO LOCATION NEEDED pH (Bld) 7.34 [pH] Low 7.38 - 7.42 [facility] Comment on above: Performed By: #### E MRAD ####NO LOCATION NEEDED Potassium molar conc 5.2 mmol/L Normal 3.5 - 5.3 [facility] Comment on above: Performed By: #### E MRAD ####NO LOCATION NEEDED RBC Auto #/vol (Bld) 24.3 mmol/L Normal 22.0 - 26.0 [facility] Comment on above: Performed By: #### E MRAD ####NO LOCATION NEEDED SO2 97 % Normal 94 - 100 [facility] Comment on above: Performed By: #### E MRAD ####NO LOCATION NEEDED Sodium molar conc 137 mmol/L Normal 136 - 145 [facility] Comment on above: Performed By: #### E MRAD ####NO LOCATION NEEDED Anion gap 3 molar conc 12 mmol/L Normal 10 - 25 [facility] Comment on above: Performed By: #### E MRAD ####NO LOCATION NEEDED BASE EXCESS-BLOOD -1.3 mmol/L Normal -2.0 - 3.0 [facility] Comment on above: Performed By: #### E MRAD ####NO LOCATION NEEDED CALCIUM,IONIZED 1.21 mmol/L Normal 1.10 - 1.33 [facility] Comment on above: Performed By: #### E MRAD ####NO LOCATION NEEDED Chloride molar conc 104 mmol/L Normal 98 - 107 [facility] Comment on above: Performed By: #### E MRAD ####NO LOCATION NEEDED Glucose mass conc 177 mg/dL High 74 - 99 [facility] Comment on above: Performed By: #### E MRAD ####NO LOCATION NEEDED Hematocrit Auto Volume Fraction (Bld) 29.0 % Low 41.0 - 52.0 [facility] Comment on above: Performed By: #### E MRAD ####NO LOCATION NEEDED HGB,CALCULATED 9.9 g/dL Low 13.5 - 17.5 [facility] Comment on above: Performed By: #### E MRAD ####NO LOCATION NEEDED Lactate molar conc 2.7 mmol/L High 0.4 - 2.0 [facility] Comment on above: Performed By: #### E MRAD ####NO LOCATION NEEDED Oxygen ppres (BldA) 67 mm[Hg] Low 85 - 95 [facility] Comment on above: Performed By: #### E MRAD ####NO LOCATION NEEDED PCO2 50 mmHg High 38 - 42 [facility] Comment on above: Performed By: #### E MRAD ####NO LOCATION NEEDED pH (Bld) 7.31 [pH] Low 7.38 - 7.42 [facility] Comment on above: Performed By: #### E MRAD ####NO LOCATION NEEDED Potassium molar conc 5.1 mmol/L Normal 3.5 - 5.3 [facility] Comment on above: Performed By: #### E MRAD ####NO LOCATION NEEDED RBC Auto #/vol (Bld) 25.2 mmol/L Normal 22.0 - 26.0 [facility] Comment on above: Performed By: #### E MRAD ####NO LOCATION NEEDED SO2 94 % Normal 94 - 100 [facility] Comment on above: Performed By: #### E MRAD ####NO LOCATION NEEDED Sodium molar conc 136 mmol/L Normal 136 - 145 [facility] Comment on above: Performed By: #### E MRAD ####NO LOCATION NEEDED Anion gap 3 molar conc 12 mmol/L Normal 10 - 25 [facility] Comment on above: Performed By: #### E MRAD ####NO LOCATION NEEDED BASE EXCESS-BLOOD -2.7 mmol/L Low -2.0 - 3.0 [facility] Comment on above: Performed By: #### E MRAD ####NO LOCATION NEEDED CALCIUM,IONIZED 1.16 mmol/L Normal 1.10 - 1.33 [facility] Comment on above: Performed By: #### E MRAD ####NO LOCATION NEEDED Chloride molar conc 105 mmol/L Normal 98 - 107 [facility] Comment on above: Performed By: #### E MRAD ####NO LOCATION NEEDED FIO2 67 % Normal [facility] Comment on above: Performed By: #### E MRAD ####NO LOCATION NEEDED Glucose mass conc 198 mg/dL High 74 - 99 [facility] Comment on above: Performed By: #### E MRAD ####NO LOCATION NEEDED Hematocrit Auto Volume Fraction (Bld) 30.0 % Low 41.0 - 52.0 [facility] Comment on above: Performed By: #### E MRAD ####NO LOCATION NEEDED HGB,CALCULATED 10.2 g/dL Low 13.5 - 17.5 [facility] Comment on above: Performed By: #### E MRAD ####NO LOCATION NEEDED Lactate molar conc 3.3 mmol/L High 0.4 - 2.0 [facility] Comment on above: Performed By: #### E MRAD ####NO LOCATION NEEDED Oxygen ppres (BldA) 97 mm[Hg] High 85 - 95 [facility] Comment on above: Performed By: #### E MRAD ####NO LOCATION NEEDED PCO2 40 mmHg Normal 38 - 42 [facility] Comment on above: Performed By: #### E MRAD ####NO LOCATION NEEDED pH (Bld) 7.36 [pH] Low 7.38 - 7.42 [facility] Comment on above: Performed By: #### E MRAD ####NO LOCATION NEEDED Potassium molar conc 5.1 mmol/L Normal 3.5 - 5.3 [facility] Comment on above: Performed By: #### E MRAD ####NO LOCATION NEEDED RBC Auto #/vol (Bld) 22.6 mmol/L Normal 22.0 - 26.0 [facility] Comment on above: Performed By: #### E MRAD ####NO LOCATION NEEDED SO2 99 % Normal 94 - 100 [facility] Comment on above: Performed By: #### E MRAD ####NO LOCATION NEEDED Sodium molar conc 134 mmol/L Low 136 - 145 [facility] Comment on above: Performed By: #### E MRAD ####NO LOCATION NEEDED Anion gap 3 molar conc 13 mmol/L Normal 10 - 25 [facility] Comment on above: Performed By: #### A FPA3 ####[id number] [place] [address] BASE EXCESS-BLOOD -3.0 mmol/L Low -2.0 - 3.0 [facility] Comment on above: Performed By: #### A FPA3 ####[id number] [place] [address] CALCIUM,IONIZED 1.16 mmol/L Normal 1.10 - 1.33 [facility] Comment on above: Performed By: #### A FPA3 ####[id number] [place] [address] Chloride molar conc 104 mmol/L Normal 98 - 107 [facility] Comment on above: Performed By: #### A FPA3 ####[id number] [place] [address] FIO2 67 % Normal [facility] Comment on above: Performed By: #### A FPA3 ####[id number] [place] [address] Glucose mass conc 189 mg/dL High 74 - 99 [facility] Comment on above: Performed By: #### A FPA3 ####[id number] [place] [address] Hematocrit Auto Volume Fraction (Bld) 31.0 % Low 41.0 - 52.0 [facility] Comment on above: Performed By: #### A FPA3 ####[id number] [place] [address] HGB,CALCULATED 10.5 g/dL Low 13.5 - 17.5 [facility] Comment on above: Performed By: #### A FPA3 ####[id number] [place] [address] Lactate molar conc 3.9 mmol/L High 0.4 - 2.0 [facility] Comment on above: Performed By: #### A FPA3 ####[id number] [place] [address] Oxygen ppres (BldA) 105 mm[Hg] High 85 - 95 [facility] Comment on above: Performed By: #### A FPA3 ####[id number] [place] [address] PCO2 38 mmHg Normal 38 - 42 [facility] Comment on above: Performed By: #### A FPA3 ####[id number] [place] [address] pH (Bld) 7.37 [pH] Low 7.38 - 7.42 [facility] Comment on above: Performed By: #### A FPA3 ####[id number] [place] [address] Potassium molar conc 5.0 mmol/L Normal 3.5 - 5.3 [facility] Comment on above: Performed By: #### A FPA3 ####[id number] [place] [address] RBC Auto #/vol (Bld) 22.0 mmol/L Normal 22.0 - 26.0 [facility] Comment on above: Performed By: #### A FPA3 ####[id number] [place] [address] SO2 99 % Normal 94 - 100 [facility] Comment on above: Performed By: #### A FPA3 ####[id number] [place] [address] Sodium molar conc 134 mmol/L Low 136 - 145 [facility] Comment on above: Performed By: #### A FPA3 ####[id number] [place] [address] Anion gap 3 molar conc 12 mmol/L Normal 10 - 25 [facility] Comment on above: Performed By: #### A FPA3 ####[id number] [place] [address] BASE EXCESS-BLOOD -4.5 mmol/L Low -2.0 - 3.0 [facility] Comment on above: Performed By: #### A FPA3 ####[id number] [place] [address] CALCIUM,IONIZED 1.28 mmol/L Normal 1.10 - 1.33 [facility] Comment on above: Performed By: #### A FPA3 ####[id number] [place] [address] Chloride molar conc 105 mmol/L Normal 98 - 107 [facility] Comment on above: Performed By: #### A FPA3 ####[id number] [place] [address] FIO2 94 % Normal [facility] Comment on above: Performed By: #### A FPA3 ####[id number] [place] [address] Glucose mass conc 208 mg/dL High 74 - 99 [facility] Comment on above: Performed By: #### A FPA3 ####[id number] [place] [address] Hematocrit Auto Volume Fraction (Bld) 30.0 % Low 41.0 - 52.0 [facility] Comment on above: Performed By: #### A FPA3 ####[id number] [place] [address] HGB,CALCULATED 10.2 g/dL Low 13.5 - 17.5 [facility] Comment on above: Performed By: #### A FPA3 ####[id number] [place] [address] Lactate molar conc 4.0 mmol/L Critically high 0.4 - 2.0 [facility] Comment on above: Performed By: #### A FPA3 ####[id number] [place] [address] Oxygen ppres (BldA) 243 mm[Hg] High 85 - 95 [facility] Comment on above: Performed By: #### A FPA3 ####[id number] [place] [address] PCO2 46 mmHg High 38 - 42 [facility] Comment on above: Performed By: #### A FPA3 ####[id number] [place] [address] pH (Bld) 7.29 [pH] Low 7.38 - 7.42 [facility] Comment on above: Performed By: #### A FPA3 ####[id number] [place] [address] Potassium molar conc 4.8 mmol/L Normal 3.5 - 5.3 [facility] Comment on above: Performed By: #### A FPA3 ####[id number] [place] [address] RBC Auto #/vol (Bld) 22.1 mmol/L Normal 22.0 - 26.0 [facility] Comment on above: Performed By: #### A FPA3 ####[id number] [place] [address] SO2 100 % Normal 94 - 100 [facility] Comment on above: Performed By: #### A FPA3 ####[id number] [place] [address] Sodium molar conc 134 mmol/L Low 136 - 145 [facility] Comment on above: Performed By: #### A FPA3 ####[id number] [place] [address] Anion gap 3 molar conc 11 mmol/L Normal 10 - 25 [facility] Comment on above: Performed By: #### A FPA3 ####[id number] [place] [address] BASE EXCESS-BLOOD -2.9 mmol/L Low -2.0 - 3.0 [facility] Comment on above: Performed By: #### A FPA3 ####[id number] [place] [address] CALCIUM,IONIZED 1.04 mmol/L Low 1.10 - 1.33 [facility] Comment on above: Performed By: #### A FPA3 ####[id number] [place] [address] Chloride molar conc 104 mmol/L Normal 98 - 107 [facility] Comment on above: Performed By: #### A FPA3 ####[id number] [place] [address] FIO2 80 % Normal [facility] Comment on above: Performed By: #### A FPA3 ####[id number] [place] [address] Glucose mass conc 251 mg/dL High 74 - 99 [facility] Comment on above: Performed By: #### A FPA3 ####[id number] [place] [address] Hematocrit Auto Volume Fraction (Bld) 29.0 % Low 41.0 - 52.0 [facility] Comment on above: Performed By: #### A FPA3 ####[id number] [place] [address] HGB,CALCULATED 9.9 g/dL Low 13.5 - 17.5 [facility] Comment on above: Performed By: #### A FPA3 ####[id number] [place] [address] Lactate molar conc 4.0 mmol/L Critically high 0.4 - 2.0 [facility] Comment on above: Performed By: #### A FPA3 ####[id number] [place] [address] Oxygen ppres (BldA) 252 mm[Hg] High 85 - 95 [facility] Comment on above: Performed By: #### A FPA3 ####[id number] [place] [address] PCO2 41 mmHg Normal 38 - 42 [facility] Comment on above: Performed By: #### A FPA3 ####[id number] [place] [address] pH (Bld) 7.35 [pH] Low 7.38 - 7.42 [facility] Comment on above: Performed By: #### A FPA3 ####[id number] [place] [address] Potassium molar conc 6.1 mmol/L Critically high 3.5 - 5.3 [facility] Comment on above: Performed By: #### A FPA3 ####[id number] [place] [address] RBC Auto #/vol (Bld) 22.6 mmol/L Normal 22.0 - 26.0 [facility] Comment on above: Performed By: #### A FPA3 ####[id number] [place] [address] SO2 99 % Normal 94 - 100 [facility] Comment on above: Performed By: #### A FPA3 ####[id number] [place] [address] Sodium molar conc 131 mmol/L Low 136 - 145 [facility] Comment on above: Performed By: #### A FPA3 ####[id number] [place] [address] Anion gap 3 molar conc 12 mmol/L Normal 10 - 25 [facility] Comment on above: Performed By: #### A FPA3 ####[id number] [place] [address] BASE EXCESS-BLOOD -2.2 mmol/L Low -2.0 - 3.0 [facility] Comment on above: Performed By: #### A FPA3 ####[id number] [place] [address] CALCIUM,IONIZED 1.04 mmol/L Low 1.10 - 1.33 [facility] Comment on above: Performed By: #### A FPA3 ####[id number] [place] [address] Chloride molar conc 103 mmol/L Normal 98 - 107 [facility] Comment on above: Performed By: #### A FPA3 ####[id number] [place] [address] FIO2 75 % Normal [facility] Comment on above: Performed By: #### A FPA3 ####[id number] [place] [address] Glucose mass conc 246 mg/dL High 74 - 99 [facility] Comment on above: Performed By: #### A FPA3 ####[id number] [place] [address] Hematocrit Auto Volume Fraction (Bld) 29.0 % Low 41.0 - 52.0 [facility] Comment on above: Performed By: #### A FPA3 ####[id number] [place] [address] HGB,CALCULATED 9.9 g/dL Low 13.5 - 17.5 [facility] Comment on above: Performed By: #### A FPA3 ####[id number] [place] [address] Lactate molar conc 3.8 mmol/L High 0.4 - 2.0 [facility] Comment on above: Performed By: #### A FPA3 ####[id number] [place] [address] Oxygen ppres (BldA) 232 mm[Hg] High 85 - 95 [facility] Comment on above: Performed By: #### A FPA3 ####[id number] [place] [address] PCO2 41 mmHg Normal 38 - 42 [facility] Comment on above: Performed By: #### A FPA3 ####[id number] [place] [address] pH (Bld) 7.36 [pH] Low 7.38 - 7.42 [facility] Comment on above: Performed By: #### A FPA3 ####[id number] [place] [address] Potassium molar conc 6.5 mmol/L Critically high 3.5 - 5.3 [facility] Comment on above: Performed By: #### A FPA3 ####[id number] [place] [address] RBC Auto #/vol (Bld) 23.2 mmol/L Normal 22.0 - 26.0 [facility] Comment on above: Performed By: #### A FPA3 ####[id number] [place] [address] SO2 100 % Normal 94 - 100 [facility] Comment on above: Performed By: #### A FPA3 ####[id number] [place] [address] Sodium molar conc 132 mmol/L Low 136 - 145 [facility] Comment on above: Performed By: #### A FPA3 ####[id number] [place] [address] Anion gap 3 molar conc 11 mmol/L Normal 10 - 25 [facility] Comment on above: Performed By: #### A FPA3 ####[id number] [place] [address] BASE EXCESS-BLOOD -1.8 mmol/L Normal -2.0 - 3.0 [facility] Comment on above: Performed By: #### A FPA3 ####[id number] [place] [address] CALCIUM,IONIZED 1.03 mmol/L Low 1.10 - 1.33 [facility] Comment on above: Performed By: #### A FPA3 ####[id number] [place] [address] Chloride molar conc 103 mmol/L Normal 98 - 107 [facility] Comment on above: Performed By: #### A FPA3 ####[id number] [place] [address] FIO2 75 % Normal [facility] Comment on above: Performed By: #### A FPA3 ####[id number] [place] [address] Glucose mass conc 251 mg/dL High 74 - 99 [facility] Comment on above: Performed By: #### A FPA3 ####[id number] [place] [address] Hematocrit Auto Volume Fraction (Bld) 28.0 % Low 41.0 - 52.0 [facility] Comment on above: Performed By: #### A FPA3 ####[id number] [place] [address] HGB,CALCULATED 9.5 g/dL Low 13.5 - 17.5 [facility] Comment on above: Performed By: #### A FPA3 ####[id number] [place] [address] Lactate molar conc 3.8 mmol/L High 0.4 - 2.0 [facility] Comment on above: Performed By: #### A FPA3 ####[id number] [place] [address] Oxygen ppres (BldA) 312 mm[Hg] High 85 - 95 [facility] Comment on above: Performed By: #### A FPA3 ####[id number] [place] [address] PCO2 46 mmHg High 38 - 42 [facility] Comment on above: Performed By: #### A FPA3 ####[id number] [place] [address] pH (Bld) 7.33 [pH] Low 7.38 - 7.42 [facility] Comment on above: Performed By: #### A FPA3 ####[id number] [place] [address] Potassium molar conc 6.5 mmol/L Critically high 3.5 - 5.3 [facility] Comment on above: Performed By: #### A FPA3 ####[id number] [place] [address] RBC Auto #/vol (Bld) 24.3 mmol/L Normal 22.0 - 26.0 [facility] Comment on above: Performed By: #### A FPA3 ####[id number] [place] [address] SO2 100 % Normal 94 - 100 [facility] Comment on above: Performed By: #### A FPA3 ####[id number] [place] [address] Sodium molar conc 132 mmol/L Low 136 - 145 [facility] Comment on above: Performed By: #### A FPA3 ####[id number] [place] [address] Anion gap 3 molar conc 12 mmol/L Normal 10 - 25 [facility] Comment on above: Performed By: #### A FPA3 ####[id number] [place] [address] BASE EXCESS-BLOOD -0.1 mmol/L Normal -2.0 - 3.0 [facility] Comment on above: Performed By: #### A FPA3 ####[id number] [place] [address] CALCIUM,IONIZED 0.87 mmol/L Low 1.10 - 1.33 [facility] Comment on above: Performed By: #### A FPA3 ####[id number] [place] [address] Chloride molar conc 101 mmol/L Normal 98 - 107 [facility] Comment on above: Performed By: #### A FPA3 ####[id number] [place] [address] FIO2 80 % Normal [facility] Comment on above: Performed By: #### A FPA3 ####[id number] [place] [address] Glucose mass conc 230 mg/dL High 74 - 99 [facility] Comment on above: Performed By: #### A FPA3 ####[id number] [place] [address] Hematocrit Auto Volume Fraction (Bld) 27.0 % Low 41.0 - 52.0 [facility] Comment on above: Performed By: #### A FPA3 ####[id number] [place] [address] HGB,CALCULATED 9.2 g/dL Low 13.5 - 17.5 [facility] Comment on above: Performed By: #### A FPA3 ####[id number] [place] [address] Lactate molar conc 3.1 mmol/L High 0.4 - 2.0 [facility] Comment on above: Performed By: #### A FPA3 ####[id number] [place] [address] Oxygen ppres (BldA) 392 mm[Hg] High 85 - 95 [facility] Comment on above: Performed By: #### A FPA3 ####[id number] [place] [address] PCO2 47 mmHg High 38 - 42 [facility] Comment on above: Performed By: #### A FPA3 ####[id number] [place] [address] pH (Bld) 7.35 [pH] Low 7.38 - 7.42 [facility] Comment on above: Performed By: #### A FPA3 ####[id number] [place] [address] Potassium molar conc 5.1 mmol/L Normal 3.5 - 5.3 [facility] Comment on above: Performed By: #### A FPA3 ####[id number] [place] [address] RBC Auto #/vol (Bld) 25.9 mmol/L Normal 22.0 - 26.0 [facility] Comment on above: Performed By: #### A FPA3 ####[id number] [place] [address] SO2 99 % Normal 94 - 100 [facility] Comment on above: Performed By: #### A FPA3 ####[id number] [place] [address] Sodium molar conc 134 mmol/L Low 136 - 145 [facility] Comment on above: Performed By: #### A FPA3 ####[id number] [place] [address] Anion gap 3 molar conc 14 mmol/L Normal 10 - 25 [facility] Comment on above: Performed By: #### A FPA3 ####[id number] [place] [address] BASE EXCESS-BLOOD -3.6 mmol/L Low -2.0 - 3.0 [facility] Comment on above: Performed By: #### A FPA3 ####[id number] [place] [address] CALCIUM,IONIZED 1.10 mmol/L Normal 1.10 - 1.33 [facility] Comment on above: Performed By: #### A FPA3 ####[id number] [place] [address] Chloride molar conc 100 mmol/L Normal 98 - 107 [facility] Comment on above: Performed By: #### A FPA3 ####[id number] [place] [address] FIO2 64 % Normal [facility] Comment on above: Performed By: #### A FPA3 ####[id number] [place] [address] Glucose mass conc 268 mg/dL High 74 - 99 [facility] Comment on above: Performed By: #### A FPA3 ####[id number] [place] [address] Hematocrit Auto Volume Fraction (Bld) 36.0 % Low 41.0 - 52.0 [facility] Comment on above: Performed By: #### A FPA3 ####[id number] [place] [address] HGB,CALCULATED 12.2 g/dL Low 13.5 - 17.5 [facility] Comment on above: Performed By: #### A FPA3 ####[id number] [place] [address] Lactate molar conc 3.1 mmol/L High 0.4 - 2.0 [facility] Comment on above: Performed By: #### A FPA3 ####[id number] [place] [address] Oxygen ppres (BldA) 111 mm[Hg] High 85 - 95 [facility] Comment on above: Performed By: #### A FPA3 ####[id number] [place] [address] PCO2 47 mmHg High 38 - 42 [facility] Comment on above: Performed By: #### A FPA3 ####[id number] [place] [address] pH (Bld) 7.30 [pH] Low 7.38 - 7.42 [facility] Comment on above: Performed By: #### A FPA3 ####[id number] [place] [address] Potassium molar conc 5.3 mmol/L Normal 3.5 - 5.3 [facility] Comment on above: Performed By: #### A FPA3 ####[id number] [place] [address] RBC Auto #/vol (Bld) 23.1 mmol/L Normal 22.0 - 26.0 [facility] Comment on above: Performed By: #### A FPA3 ####[id number] [place] [address] SO2 99 % Normal 94 - 100 [facility] Comment on above: Performed By: #### A FPA3 ####[id number] [place] [address] Sodium molar conc 132 mmol/L Low 136 - 145 [facility] Comment on above: Performed By: #### A FPA3 ####[id number] [place] [address] Anion gap 3 molar conc 13 mmol/L Normal 10 - 25 [facility] Comment on above: Performed By: #### A FPA3 ####[id number] [place] [address] BASE EXCESS-BLOOD -3.2 mmol/L Low -2.0 - 3.0 [facility] Comment on above: Performed By: #### A FPA3 ####[id number] [place] [address] CALCIUM,IONIZED 1.20 mmol/L Normal 1.10 - 1.33 [facility] Comment on above: Performed By: #### A FPA3 ####[id number] [place] [address] Chloride molar conc 102 mmol/L Normal 98 - 107 [facility] Comment on above: Performed By: #### A FPA3 ####[id number] [place] [address] FIO2 100 % Normal [facility] Comment on above: Performed By: #### A FPA3 ####[id number] [place] [address] Glucose mass conc 238 mg/dL High 74 - 99 [facility] Comment on above: Performed By: #### A FPA3 ####[id number] [place] [address] Hematocrit Auto Volume Fraction (Bld) 40.0 % Low 41.0 - 52.0 [facility] Comment on above: Performed By: #### A FPA3 ####[id number] [place] [address] HGB,CALCULATED 13.6 g/dL Normal 13.5 - 17.5 [facility] Comment on above: Performed By: #### A FPA3 ####[id number] [place] [address] Lactate molar conc 2.3 mmol/L High 0.4 - 2.0 [facility] Comment on above: Performed By: #### A FPA3 ####[id number] [place] [address] Oxygen ppres (BldA) 383 mm[Hg] High 85 - 95 [facility] Comment on above: Performed By: #### A FPA3 ####[id number] [place] [address] PCO2 48 mmHg High 38 - 42 [facility] Comment on above: Performed By: #### A FPA3 ####[id number] [place] [address] pH (Bld) 7.30 [pH] Low 7.38 - 7.42 [facility] Comment on above: Performed By: #### A FPA3 ####[id number] [place] [address] Potassium molar conc 4.6 mmol/L Normal 3.5 - 5.3 [facility] Comment on above: Performed By: #### A FPA3 ####[id number] [place] [address] RBC Auto #/vol (Bld) 23.6 mmol/L Normal 22.0 - 26.0 [facility] Comment on above: Performed By: #### A FPA3 ####[id number] [place] [address] SO2 99 % Normal 94 - 100 [facility] Comment on above: Performed By: #### A FPA3 ####[id number] [place] [address] Sodium molar conc 134 mmol/L Low 136 - 145 [facility] Comment on above: Performed By: #### A FPA3 ####[id number] [place] [address] CALCIUM, IONIZEDon 8 CALCIUM,IONIZED 1.24 mmol/L Normal 1.10 - 1.33 [facility] Comment on above: Result Comment: The performance [...] (RBC) 12.8 % Normal 11.5 - 14.5 [facility] Comment on above: Performed By: #### E MRAD ####NO LOCATION NEEDED Hematocrit Auto Volume Fraction (Bld) 37.9 % Low 41.0 - 52.0 [facility] Comment on above: Performed By: #### E MRAD ####NO LOCATION NEEDED Hemoglobin mass conc (Bld) 12.7 g/dL Low 13.5 - 17.5 [facility] Comment on above: Performed By: #### E MRAD ####NO LOCATION NEEDED MCHC Auto mass conc (RBC) 33.5 g/dL Normal 32.0 - 36.0 [facility] [facility] Comment [facility]: Performed By: #### E MRAD ####NO LOCATION NEEDED MCV Auto Entitic volume (RBC) 92 fL Normal 80 - 100 [facility] Comment on above: Performed By: #### E MRAD ####NO LOCATION NEEDED Nucleated RBC/100 WBC Ratio (Bld) 0.0 /100 WBC Normal 0.0-0.0 [facility] Comment on above: Performed By: #### E MRAD ####NO LOCATION NEEDED Platelets Auto #/vol (Bld) 201 10*3/uL Normal 150 - 450 [facility] Comment on above: Performed By: #### E MRAD ####NO LOCATION NEEDED RBC Auto #/vol (Bld) 4.12 x10E12/L Low 4.50 - 5.90 [facility] Comment on above: Performed By: #### E MRAD ####NO LOCATION NEEDED WBC Auto #/vol (Bld) 19.7 10*3/uL High 4.4 - 11.3 [facility] Comment on above: Performed By: #### E MRAD ####NO LOCATION NEEDED Erythrocyte distribution width Auto Ratio (RBC) 12.7 % Normal 11.5 - 14.5 [facility] Comment on above: Performed By: #### C BC ####[id number] [place] [address] Hematocrit Auto Volume Fraction (Bld) 33.7 % Low 41.0 - 52.0 [facility] Comment on above: Performed By: #### C BC ####[id number] [place] [address] Hemoglobin mass conc (Bld) 11.5 g/dL Low 13.5 - 17.5 [facility] Comment on above: Performed By: #### C BC ####[id number] [place] [address] MCHC Auto mass conc (RBC) 34.1 g/dL Normal 32.0 - 36.0 [facility] Comment on above: Performed By: #### C BC ####[id number] [place] [address] MCV Auto Entitic volume (RBC) 92 fL Normal 80 - 100 [facility] Comment on above: Performed By: #### C BC ####[id number] [place] [address] Nucleated RBC/100 WBC Ratio (Bld) 0.0 /100 WBC Normal 0.0-0.0 [facility] Comment on above: Performed By: #### C BC ####[id number] [place] [address] Platelets Auto #/vol (Bld) 167 10*3/uL Normal 150 - 450 [facility] Comment on above: Performed By: #### C BC ####[id number] [place] [address] RBC Auto #/vol (Bld) 3.66 x10E12/L Low 4.50 - 5.90 [facility] Comment on above: Performed By: #### C BC ####[id number] [place] [address] WBC Auto #/vol (Bld) 14.7 10*3/uL High 4.4 - 11.3 [facility] Comment on above: Performed By: #### C BC ####[id number] [place] [address] Erythrocyte distribution width Auto Ratio (RBC) 12.7 % Normal 11.5 - 14.5 [facility] Comment on above: Performed By: #### C BC ####[id number] [place] [address] Hematocrit Auto Volume Fraction (Bld) 40.5 % Low 41.0 - 52.0 [facility] Comment on above: Performed By: #### C BC ####[id number] [place] [address] Hemoglobin mass conc (Bld) 13.9 g/dL Normal 13.5 - 17.5 [facility] Comment on above: Performed By: #### C BC ####[id number] [place] [address] MCHC Auto mass conc (RBC) 34.3 g/dL Normal 32.0 - 36.0 [facility] Comment on above: Performed By: #### C BC ####[id number] [place] [address] MCV Auto Entitic volume (RBC) 91 fL Normal 80 - 100 [facility] Comment on above: Performed By: #### C BC ####[id number] [place] [address] Nucleated RBC/100 WBC Ratio (Bld) 0.0 /100 WBC Normal 0.0-0.0 [facility] Comment on above: Performed By: #### C BC ####[id number] [place] [address] Platelets Auto #/vol (Bld) 220 10*3/uL Normal 150 - 450 [facility] Comment on above: Performed By: #### C BC ####[id number] [place] [address] RBC Auto #/vol (Bld) 4.44 x10E12/L Low 4.50 - 5.90 [facility] Comment on above: Performed By: #### C BC ####[id number] [place] [address] WBC Auto #/vol (Bld) 8.6 10*3/uL Normal 4.4 - 11.3 [facility] Comment on above: Performed By: #### C BC ####[id number] [place] [address] COAGULATION SCREENon 03-31- 018 aPTT Coag time (Bld) 27 s Low 28 - 38 [facility] Comment on above: Result Comment: Note new reference range as of 03/10/2018. THE APTT IS NO LONGER USED FOR MONITORING UNFRACTIONATED HEPARIN THERAPY. FOR MONITORING HEPARIN THERAPY, USE THE HEPARIN ASSAY. Performed By: #### E MRAD ####NO LOCATION NEEDED INR Coag RelTime (PPP) 1.2 {INR} High 0.9 - 1.1 [facility] Comment on above: Performed By: #### E MRAD ####NO LOCATION NEEDED Prothrombin time (PT) Coag time (PPP) 13.8 s High 9.7 - 12.7 [facility] Comment on above: Result Comment: Note new reference range as of 03/10/2018. Performed By: #### E MRAD ####NO LOCATION NEEDED aPTT Coag time (Bld) 27 s Low 28 - 38 [facility] Comment on above: Result Comment: Note new reference range as of 03/10/2018. THE APTT IS NO LONGER USED FOR MONITORING UNFRACTIONATED HEPARIN THERAPY. FOR MONITORING HEPARIN THERAPY, USE THE HEPARIN ASSAY. Performed By: #### C OAGS ####[id number] [place] [address] INR Coag RelTime (PPP) 1.4 {INR} High 0.9 - 1.1 [facility] Comment on above: Performed By: #### C OAGS ####[id number] [place] [address] Prothrombin time (PT) Coag time (PPP) 16.0 s High 9.7 - 12.7 [facility] Comment on above: Result Comment: Note new reference range as of 03/10/2018. Performed By: #### C OAGS ####[id number] [place] [address] aPTT Coag time (Bld) 66 s High 28 - 38 [facility] Comment on above: Result Comment: Note new reference range as of 03/10/2018. THE APTT IS NO LONGER USED FOR MONITORING UNFRACTIONATED HEPARIN THERAPY. FOR MONITORING HEPARIN THERAPY, USE THE HEPARIN ASSAY. Performed By: #### C OAGS ####[id number] [place] [address] INR Coag RelTime (PPP) 1.2 {INR} High 0.9 - 1.1 [facility] Comment on above: Performed By: #### C OAGS ####[id number] [place] [address] Prothrombin time (PT) Coag time (PPP) 13.4 s High 9.7 - 12.7 [facility] Comment on above: Result Comment: Note new reference range as of 03/10/2018. Performed By: #### C OAGS ####[id number] [place] [address] COOX PANEL, ARTERIALon 03-31 DEOXY HGB 1.4 % Normal 0.0 - 5.0 [facility] Comment on above: Performed By: #### E MRAD ####NO LOCATION NEEDED Hemoglobin mass conc (Bld) 11.5 g/dL Low 13.5 - 17.5 [facility] Comment on above: Performed By: #### E MRAD ####NO LOCATION NEEDED Hemoglobin mass conc (Bld) 2.1 % Abnormal [facility] Comment on above: Result Comment: REF VALUESNONSMOKERS 0.5-1.5%SMOKERS 0.5-10.0% Performed By: #### E MRAD ####NO LOCATION NEEDED MET HGB 1.0 % Normal 0.0 - 1.5 [facility] Comment on above: Performed By: #### E MRAD ####NO LOCATION NEEDED OXY HGB 95.5 % Normal 94.0 - 98.0 [facility] Comment on above: Performed By: #### E MRAD ####NO LOCATION NEEDED DEOXY HGB 1.2 % Normal 0.0 - 5.0 [facility] Comment on above: Performed By: #### C OOXA ####[id number] [place] [address] Hemoglobin mass conc (Bld) 12.0 g/dL Low 13.5 - 17.5 [facility] Comment on above: Performed By: #### C OOXA ####[id number] [place] [address] Hemoglobin mass conc (Bld) 2.1 % Abnormal [facility] Comment on above: Result Comment: REF VALUESNONSMOKERS 0.5-1.5%SMOKERS 0.5-10.0% Performed By: #### C OOXA ####[id number] [place] [address] MET HGB 1.3 % Normal 0.0 - 1.5 [facility] Comment on above: Performed By: #### C OOXA ####[id number] [place] [address] OXY HGB 95.4 % Normal 94.0 - 98.0 [facility] Comment on above: Performed By: #### C OOXA ####[id number] [place] [address] DEOXY HGB 0.3 % Normal 0.0 - 5.0 [facility] Comment on above: Performed By: #### C OOXA ####[id number] [place] [address] Hemoglobin mass conc (Bld) 11.7 g/dL Low 13.5 - 17.5 [facility] Comment on above: Performed By: #### C OOXA ####[id number] [place] [address] Hemoglobin mass conc (Bld) 2.0 % Abnormal [facility] Comment on above: Result Comment: REF VALUESNONSMOKERS 0.5-1.5%SMOKERS 0.5-10.0% Performed By: #### C OOXA ####[id number] [place] [address] MET HGB 1.1 % Normal 0.0 - 1.5 [facility] Comment on above: Performed By: #### C OOXA ####[id number] [place] [address] OXY HGB 96.5 % Normal 94.0 - 98.0 [facility] Comment on above: Performed By: #### C OOXA ####[id number] [place] [address] DEOXY HGB 0.6 % Normal 0.0 - 5.0 [facility] Comment on above: Performed By: #### C OOXA ####[id number] [place] [address] Hemoglobin mass conc (Bld) 1.8 % Abnormal [facility] Comment on above: Result Comment: REF VALUESNONSMOKERS 0.5-1.5%SMOKERS 0.5-10.0% Performed By: #### C OOXA ####[id number] [place] [address] Hemoglobin mass conc (Bld) 11.4 g/dL Low 13.5 - 17.5 [facility] Comment on above: Performed By: #### C OOXA ####[id number] [place] [address] MET HGB 1.0 % Normal 0.0 - 1.5 [facility] Comment on above: Performed By: #### C OOXA ####[id number] [place] [address] OXY HGB 96.6 % Normal 94.0 - 98.0 [facility] Comment on above: Performed By: #### C OOXA ####[id number] [place] [address] DEOXY HGB 0.3 % Normal 0.0 - 5.0 [facility] Comment on above: Performed By: #### C OOXA ####[id number] [place] [address] Hemoglobin mass conc (Bld) 2.0 % Abnormal [facility] Comment on above: Result Comment: REF VALUESNONSMOKERS 0.5-1.5%SMOKERS 0.5-10.0% Performed By: #### C OOXA ####[id number] [place] [address] Hemoglobin mass conc (Bld) 11.3 g/dL Low 13.5 - 17.5 [facility] Comment on above: Performed By: #### C OOXA ####[id number] [place] [address] MET HGB 0.7 % Normal 0.0 - 1.5 [facility] Comment on above: Performed By: #### C OOXA ####[id number] [place] [address] OXY HGB 97.0 % Normal 94.0 - 98.0 [facility] Comment on above: Performed By: #### C OOXA ####[id number] [place] [address] DEOXY HGB -0.1 % Low 0.0 - 5.0 [facility] Comment on above: Performed By: #### C OOXA ####[id number] [place] [address] Hemoglobin mass conc (Bld) 2.2 % Abnormal [facility] Comment on above: Result Comment: REF VALUESNONSMOKERS 0.5-1.5%SMOKERS 0.5-10.0% Performed By: #### C OOXA ####[id number] [place] [address] Hemoglobin mass conc (Bld) 11.3 g/dL Low 13.5 - 17.5 [facility] Comment on above: Performed By: #### C OOXA ####[id number] [place] [address] MET HGB 0.8 % Normal 0.0 - 1.5 [facility] Comment on above: Performed By: #### C OOXA ####[id number] [place] [address] OXY HGB 97.1 % Normal 94.0 - 98.0 [facility] Comment on above: Performed By: #### C OOXA ####[id number] [place] [address] DEOXY HGB 1.0 % Normal 0.0 - 5.0 [facility] Comment on above: Performed By: #### C OOXA ####[id number] [place] [address] Hemoglobin mass conc (Bld) 1.9 % Abnormal [facility] Comment on above: Result Comment: REF VALUESNONSMOKERS 0.5-1.5%SMOKERS 0.5-10.0% Performed By: #### C OOXA ####[id number] [place] [address] Hemoglobin mass conc (Bld) 10.9 g/dL Low 13.5 - 17.5 [facility] Comment on above: Performed By: #### C OOXA ####[id number] [place] [address] MET HGB 1.7 % High 0.0 - 1.5 [facility] Comment on above: Performed By: #### C OOXA ####[id number] [place] [address] OXY HGB 95.4 % Normal 94.0 - 98.0 [facility] Comment on above: Performed By: #### C OOXA ####[id number] [place] [address] DEOXY HGB 1.5 % Normal 0.0 - 5.0 [facility] Comment on above: Performed By: #### C OOXA ####[id number] [place] [address] Hemoglobin mass conc (Bld) 13.2 g/dL Low 13.5 - 17.5 [facility] Comment on above: Performed By: #### C OOXA ####[id number] [place] [address] Hemoglobin mass conc (Bld) 1.6 % Abnormal [facility] Comment on above: Result Comment: REF VALUESNONSMOKERS 0.5-1.5%SMOKERS 0.5-10.0% Performed By: #### C OOXA ####[id number] [place] [address] MET HGB 0.8 % Normal 0.0 - 1.5 [facility] Comment on above: Performed By: #### C OOXA ####[id number] [place] [address] OXY HGB 96.2 % Normal 94.0 - 98.0 [facility] Comment on above: Performed By: #### C OOXA ####[id number] [place] [address] DEOXY HGB 0.7 % Normal 0.0 - 5.0 [facility] Comment on above: Performed By: #### C OOXA ####[id number] [place] [address] Hemoglobin mass conc (Bld) 1.5 % Normal [facility] Comment on above: Result Comment: REF VALUESNONSMOKERS 0.5-1.5%SMOKERS 0.5-10.0% Performed By: #### C OOXA ####[id number] [place] [address] Hemoglobin mass conc (Bld) 14.7 g/dL Normal 13.5 - 17.5 [facility] Comment on above: Performed By: #### C OOXA ####[id number] [place] [address] MET HGB 0.9 % Normal 0.0 - 1.5 [facility] Comment on above: Performed By: #### C OOXA ####[id number] [place] [address] OXY HGB 96.9 % Normal 94.0 - 98.0 [facility] Comment on above: Performed By: #### C OOXA ####[id number] [place] [address] CORTISOL, A.M.on 03-31-2018 CORTISOL, A.M. 24.7 ug/dL High 5.0 - 20.0 [facility] Comment on above: Performed By: #### C ARABELLA ####[id number] [place] [address] CORTISOL, P.M.on 03-31-2018 CORTISOL, P.M. 17.4 ug/dL High 2.5 - 10.0 [facility] Comment on above: Performed By: #### E MRAD ####NO LOCATION NEEDED CORTISOL, P.M. 31.3 ug/dL High 2.5 - 10.0 [facility] Comment on above: Performed By: #### E MRAD ####NO LOCATION NEEDED CORTISOL, P.M. 44.9 ug/dL High 2.5 - 10.0 [facility] Comment on above: Performed By: #### E [...] continued as q6hrs. Objective Data: Objective Information:T [id number]/8894% Date/Time03/31 4: 4: 4: 4: 4:07Range(35.8C - [...] Bolus) Injectable: 4000 unit(s) IntraVenous Push Every 8Bxdzp6. Hydrocortisone Na Succinate Injectable: 25 mg IntraVenous Push Every 1Nacvv99. Insulin Glargine (Lantus) Injectable: 20 unit(s) SubCutaneous Every 75Uocrn59. Insulin Lispro (HumaLOG) Injectable: 12 unit(s) SubCutaneous 3 Times aDay Before Meals12. Insulin Lispro Mild Corrective Scale: unit(s) SubCutaneous 3 Times a DayBefore Meals13. Levothyroxine: 150 microgram(s) Oral Daily14. Mupirocin 2%: 0.5 application(s) Each Nostril 2 Times a Day15. Pantoprazole: 40 mg Oral Daily16. rOPINIRole: 6 mg Oral 17. Sodium Chloride 0.65% Nasal [place]: 2 spray(s) Each Nostril 2 Times aDay PRN Medications -- 1. Dextrose 50% in Water Injectable: 25 gram(s) IntraVenous Push Every 63Yizzwvz0. Glucagon Injectable: 1 mg IntraMuscular Every 15 Minutes3. Nitroglycerin SubLingual: 0.4 mg SubLingual Every 5 Minutes4. Polyethylene Glycol: 17 gram(s) Oral Daily Currently Suspended Medications -- 1. Hydrocortisone: 10 mg Oral 2. Hydrocortisone: 5 mg Oral 3. Hydrocortisone: 2.5 mg Oral Recent Lab Results: Results: I have reviewed these laboratory results: Glucose_POCT Trending View Pyhstv08-Qch-5709 21:35:00 30-Mar-2018 17:24:00 30-Mar-2018 12:06:00 30-Mar-2018 07:46:00 29-Mar-2018 20:49:00Glucose-QXFF686 H 216 H 205 H 153 H 244 H Renal Function Panel Trending View [id number]-Xit-4147 19:18:00 29-Mar-2018 19:58:00Glucose, Incbr661 H 237 FOM942 132 LK4.4 4.5JT648 99Bicarbonate, Serum23 19 LAnion Gap, Serum16 99HIR30 H 24 HCREAT1.68 H 1.32 HGFR-Non Ourbrvxe15 A 54 AGFR- Zchvlqzx07 A 65Calcium, Serum9.5 9.3Phosphorus, Serum4.5 4.2ALB4.1 3.9 Assessment and Plan:Assessment: Mr. 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 T2DM-- Patient received lantus 20 units instead of 30 yesterday in the evening--Pt having CABG today, to eb on insulin drip as per CICU protocol post op--Will follow Please page with questions [phone] Patient seen and examined, plan discussed with [...] patient (as noted in the above attestation) [id number] Electronic Signatures:Starr Quevedo) (Signed 02-Apr-2018 10:01)Authored: Signature/Cosignature/Attestat ionCo-Signer: Service, Subjective Data, Objective Data, Assessment and Plan,Signature/Cosignature/Att estationHasmukh Stephenson (Resident)) (Signed 31-Mar-2018 06:23)Authored: Service, Subjective Data, Objective Data, Assessment and Plan,Signature/Cosignature/Att estation Last Updated: 02-Apr-2018 10:01 by Starr Quevedo) Normal [facility] EMR ADDONon 03-31-2018 ADDON CONFIRMATION REQUEST REC'D Normal [facility] Comment on above: Performed By: #### E MRAD ####NO LOCATION NEEDED FIBRINOGENon 03-31-2018 FIBRINOGEN Canceled Normal [facility] Comment on above: Order Comment: TEST FIBRINOGEN WAS CANCELLED, 03/31/2018 14:47 ?Cancel Reason: Discontinued. Performed By: #### E MRAD ####NO LOCATION NEEDED FIBRINOGEN 244 mg/dL Normal 200 - 400 [facility] Comment on above: Performed By: #### F IB ####[id number] [place] [address] FIBRINOGEN 356 mg/dL Normal 200 - 400 [facility] Comment on above: Performed By: #### F IB ####[id number] [place] [address] GLUCOSE-POCTon 03-31-2018 Glucose mass conc 149 mg/dL High 74 - 99 [facility] Comment on above: Performed By: #### E MRAD ####NO LOCATION NEEDED Glucose mass conc 167 mg/dL High 74 - 99 [facility] Comment on above: Performed By: #### E MRAD ####NO LOCATION NEEDED Glucose mass conc 172 mg/dL High 74 - 99 [facility] Comment on above: Performed By: #### E MRAD ####NO LOCATION NEEDED Glucose mass conc 186 mg/dL High - 99 [facility] Comment on above: Performed By: #### E MRAD ####NO LOCATION NEEDED Glucose mass conc 191 mg/dL High 74 - 99 [facility] Comment on above: Performed By: #### E MRAD ####NO LOCATION NEEDED Glucose mass conc 210 mg/dL High 74 - 99 [facility] Comment on above: Performed By: #### G BECKY ####[id number] [place] [address] History and Physical - Arturamanda Vitale 03-31-2018 History and Physical - Critical Care Service:Critical Care Service: ServiceSICU [facility] History of Present Illness:HPI:HPI: 67 yo M with HTN, DLD, T2DM, Addisson's, GERD, prostate ca s/pprostatectomy in 2011, hypothyroidism, psoriasis transferred to medicine at [facility] from [facility] on 03/18 for CABG eval Patient reports 2 month h/o intermittent exertional left sided chest painlasting less than 30 min, relieved with rest, with no other associatedsymptoms. He woke up 03/16 at 1AM with chest pressure associated with dyspnea,and his took him to [facility] where he was diagnosed with a PE,started on heparin gtt, then transferred to [facility]. There, hewas found to have [...] 1.5 Vanco @ 0810, Cefuroxime 1.5g @ 0845/[facility] [place] as above PSHcataract surgery, cholecystectomy, appendectomy, carpal tunnel release surgery,cystoscopy 3 weeks ago for microscopic hematuria, root canal 3 weeks ago.Prostatectomy 2011 FAMILY HISTORY [place], [place], CHF, HTN, DM and DLD SOCIAL HISTORY quit smoking 20 years ago. 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 PRIOR IMAGINGCTA at [facility]:Pulmonary emboli involving the bilateral lobar segmental, and severalsubsegmental branches (RUL, RML, RLL, FIDEL, LLL). LHC at [facility]:LAD prox: 30%LAD mid: 95%Diag 3rd: 99%RCA: 85 %PLV: 50%Circ: 95% TTE at [facility]:EF 60-65%Mild LA dialtionNo valvular abnormalities Comorbidities: [...] intubated, sedated Objective:Objective Information: Objective Information T AJDGWjY3Brvyc04.057790512/5994 %Date/Time03/31 4: 15: 4: 14: 15:00Range(35.8C - 36.4C ) (80 - 102 ) (18 - 20 ) (110 - 139 )/ (59 - 88 )(94% - 100% ) Vent Brosdusa40/13 14:92PqvusUIA11/13 14:11Rate Set (breaths/min)14105/31 14:11Tidal Volume Set (mL)26359/13 14:11PEEP (cm H2O)8105/31 14:11FiO2 (%)50 Vent Data03/31 14:11Ventilator IdentificationXL 7303/31 14:11Start Jatg56-Jjk-673946/13 14:11Start Time14: 14:11Ventilator Days and Hours0 Hours Non-Uaoycwpy52/13 14:11High Inspiratory Pressure (cm H2O)45 Physical Exam: [...] Succinate Injectable: 25 mg IntraVenous Push Every 1Mibbb7. Lidocaine 5% TransDermal: 1 patch TransDermal Every 24 Hours5. Pantoprazole Injectable: 40 mg IntraVenous Push Every 24 Hours PRN Medications -- 1. Bisacodyl Rectal: 10 mg Rectal Daily2. Calcium Chloride IVPB: 0.5 gram(s) IntraVenous Piggyback Every 8 Hours3. Calcium Chloride IVPB: 1 gram(s) IntraVenous Piggyback Every 8 Hours4. Dextrose 50% in Water Injectable: 25 gram(s) IntraVenous Push Every 67Fvsiwam9. Glucagon Injectable: 1 mg IntraMuscular Every 15 [...] 356 Recent Arterial Blood Gas Results 03/31/2018 07:42fL5894fI7.64dIH513CE045Rg se Excess-3.5Ypcioohnxqm09.6 Assessment and Plan:Other:Assessment: Assessment:67 year old with a history of CAD, HTN, HLD, DM2, Gerd, Shasta's, andhypothyroid presents from the OR s/p CABG [...] attending, Dr. Barnett: Continue SICU care. NED Espinal#[id number] Code Status: Code StatusFull Code Signatures/Attestation/Certifi cation:Critical [...] cationCo-Signer: Objective, Assessment and Plan,Signatures/Attestation/Ce Margot Walters (SENIOR SYSTEMS ENGINEER-NED) (Signed 31-Mar-2018 16:14)Authored: Service, History of Present Illness, Comorbidities, Allergies,Medications Prior to Admission, Review of Systems, Objective, Assessment andPlan, Signatures/Attestation/Certifi cation Last Updated: 01-Apr-2018 08:00 by Abelino Klein) Normal [facility] MAGNESIUMon 03-31-2018 Magnesium mass conc 2.67 mg/dL High 1.60 - 2.40 [facility] Comment on above: Performed By: #### E MRAD ####NO LOCATION NEEDED MV FULL PANELon 03-31-2018 Anion gap 3 molar conc 12 mmol/L Normal 10 - 25 [facility] Comment on above: Performed By: #### E MRAD ####NO LOCATION NEEDED BASE EXCESS-BLOOD -1.2 mmol/L Normal [facility] Comment on above: Performed By: #### E MRAD ####NO LOCATION NEEDED CALCIUM,IONIZED 1.19 mmol/L Normal 1.10 - 1.33 [facility] Comment on above: Performed By: #### E MRAD ####NO LOCATION NEEDED Chloride molar conc 103 mmol/L Normal 98 - 107 [facility] Comment on above: Performed By: #### E MRAD ####NO LOCATION NEEDED Glucose mass conc 180 mg/dL High 74 - 99 [facility] Comment on above: Performed By: #### E MRAD ####NO LOCATION NEEDED Hematocrit Auto Volume Fraction (Bld) 34.0 % Low 41.0 - 52.0 [facility] Comment on above: Performed By: #### E MRAD ####NO LOCATION NEEDED HGB,CALCULATED 11.6 g/dL Low 13.5 - 17.5 [facility] Comment on above: Performed By: #### E MRAD ####NO LOCATION NEEDED Lactate molar conc 2.7 mmol/L High 0.4 - 2.0 [facility] Comment on above: Performed By: #### E MRAD ####NO LOCATION NEEDED Oxygen ppres (BldA) 41 mm[Hg] Normal [facility] Comment on above: Performed By: #### E MRAD ####NO LOCATION NEEDED PCO2 56 mmHg Normal [facility] Comment on above: Performed By: #### E MRAD ####NO LOCATION NEEDED pH (Bld) 7.28 [pH] Normal [facility] Comment on above: Performed By: #### E MRAD ####NO LOCATION NEEDED Potassium molar conc 5.1 mmol/L Normal 3.5 - 5.3 [facility] Comment on above: Performed By: #### E MRAD ####NO LOCATION NEEDED RBC Auto #/vol (Bld) 26.3 mmol/L Normal [facility] Comment on above: Performed By: #### E MRAD ####NO LOCATION NEEDED SO2 66 % Normal [facility] Comment on above: Performed By: #### E MRAD ####NO LOCATION NEEDED Sodium molar conc 136 mmol/L Normal 136 - 145 [facility] Comment on above: Performed By: #### E MRAD ####NO LOCATION NEEDED OPERATIVE REPORTon 8 OPERATIVE REPORT [facility] [place], [place] [address]Patient Name: DON ELKINSMRN: [id number]: [id number] Number: [id number] [id number] Service: 03/31/2018Patient Location: [facility] [id number] Type: ISurgeon: Ana Egan Type: Operative ReportsPREOPERATIVE DIAGNOSIS: 1. Coronary artery disease.2. Ischemic heart disease.3. Non-ST segment elevation myocardial infarction.4. Recent pulmonary embolism, on anticoagulant therapy.5. Diabetes.6. Hypertension.7. Dyslipidemia.8. Obesity.9. [place] Heart Association class III.POSTOPERATIVE DIAGNOSIS: 1. Coronary artery disease.2. Ischemic heart disease.3. Non-ST segment elevation myocardial infarction.4. Recent pulmonary embolism, on anticoagulant therapy.5. Diabetes.6. Hypertension.7. Dyslipidemia.8. Obesity.9. [place] Heart Association class III.10. Status post coronary [...] MD ESTTT: 04/06/2018 11:16 PM ESTDICTATION NUMBER: [id number] JOB NUMBER: [id number]:Kenneth Cheng MD, PhDElectronically Signed by Dr. Jc Gaston 04/10/2018 09:10:09 AM Normal [facility] Preop Checkliston 03-31-2018 Preop Checklist Preop Checklist:Preo p Checklist: Procedure Typecabg NPO [id number] ID Band Onyes Allergy Bandno known allergies [...] Age Appropriateyes Emotional Statuscalm Electronic Signatures:Christine Martines ([facility] (Signed 31-Mar-2018 06:10)Authored: Preop Checklist Last Updated: 31-Mar-2018 06:10 by Christine Martines ([facility]) Normal [facility] RENAL FUNCTION PANELon 03-31 Albumin mass conc 3.9 g/dL Normal 3.4 - 5.0 [facility] Comment on above: Performed By: #### E MRAD ####NO LOCATION NEEDED Anion gap 3 molar conc 16 mmol/L Normal 10 - 20 [facility] Comment on above: Performed By: #### E MRAD ####NO LOCATION NEEDED Calcium mass conc 8.8 mg/dL Normal 8.6 - 10.6 [facility] Comment on above: Performed By: #### E MRAD ####NO LOCATION NEEDED Chloride molar conc 102 mmol/L Normal 98 - 107 [facility] Comment on above: Performed By: #### E MRAD ####NO LOCATION NEEDED Creatinine mass conc 1.35 mg/dL High 0.50 - 1.30 [facility] Comment on above: Performed By: #### E MRAD ####NO LOCATION NEEDED GFR- AM. 64 mL/min/1.73m2 Normal >60 [facility] Comment on above: Result Comment: CALC ULATIONS OF ESTIMATED GFR ARE PERFORMED USING THE MDRD STUDY EQUATION FOR THE IDMS-TRACEABLE CREATININE METHODS. CLIN CHEM 2007;53:766-72 Performed By: #### E MRAD ####NO LOCATION NEEDED GFR-NON AM. 53 mL/min/1.73m2 Abnormal >60 [facility] Comment on above: Performed By: #### E MRAD ####NO LOCATION NEEDED Glucose mass conc 169 mg/dL High 74 - 99 [facility] Comment on above: Performed By: #### E MRAD ####NO LOCATION NEEDED HCO3 molar conc (Bld) 24 mmol/L Normal 21 - 32 [facility] Comment on above: Performed By: #### E MRAD ####NO LOCATION NEEDED Phosphate mass conc 3.9 mg/dL Normal 2.5 - 4.9 [facility] Comment on above: Result Comment: The performance characteristics of phosphorus testing in heparinized plasma have been validated by the individual laboratory site where testing is performed. Testing on heparinized plasma is not approved by the FDA; however, such approval is not necessary. Performed By: #### E MRAD ####NO LOCATION NEEDED Potassium molar conc 5.0 mmol/L Normal 3.5 - 5.3 [facility] Comment on above: Performed By: #### E MRAD ####NO LOCATION NEEDED Sodium molar conc 137 mmol/L Normal 136 - 145 [facility] Comment on above: Performed By: #### E MRAD ####NO LOCATION NEEDED Urea nitrogen mass conc 22 mg/dL Normal 6 - 23 [facility] Comment on above: Performed By: #### E MRAD ####NO LOCATION NEEDED Albumin mass conc 4.1 g/dL Normal 3.4 - 5.0 [facility] Comment on above: Performed By: #### E MRAD ####NO LOCATION NEEDED Anion gap 3 molar conc 19 mmol/L Normal 10 - 20 [facility] Comment on above: Performed By: #### E MRAD ####NO LOCATION NEEDED Calcium mass conc 9.4 mg/dL Normal 8.6 - 10.6 [facility] Comment on above: Performed By: #### E MRAD ####NO LOCATION NEEDED Chloride molar conc 103 mmol/L Normal 98 - 107 [facility] Comment on above: Performed By: #### E MRAD ####NO LOCATION NEEDED Creatinine mass conc 1.50 mg/dL High 0.50 - 1.30 [facility] Comment on above: Performed By: #### E MRAD ####NO LOCATION NEEDED GFR- AM. 57 mL/min/1.73m2 Abnormal >60 [facility] Comment on above: Result Comment: CALC ULATIONS OF ESTIMATED GFR ARE PERFORMED USING THE MDRD STUDY EQUATION FOR THE IDMS-TRACEABLE CREATININE METHODS. CLIN CHEM 2007;53:766-72 Performed By: #### E MRAD ####NO LOCATION NEEDED GFR-NON AM. 47 mL/min/1.73m2 Abnormal >60 [facility] Comment on above: Performed By: #### E MRAD ####NO LOCATION NEEDED Glucose mass conc 196 mg/dL High 74 - 99 [facility] Comment on above: Performed By: #### E MRAD ####NO LOCATION NEEDED HCO3 molar conc (Bld) 21 mmol/L Normal 21 - 32 [facility] Comment on above: Performed By: #### E MRAD ####NO LOCATION NEEDED Phosphate mass conc 3.2 mg/dL Normal 2.5 - 4.9 [facility] Comment on above: Result Comment: The performance characteristics of phosphorus testing in heparinized plasma have been validated by the individual laboratory site where testing is performed. Testing on heparinized plasma is not approved by the FDA; however, such approval is not necessary. Performed By: #### E MRAD ####NO LOCATION NEEDED Potassium molar conc 5.2 mmol/L Normal 3.5 - 5.3 [facility] Comment on above: Performed By: #### E MRAD ####NO LOCATION NEEDED Sodium molar conc 138 mmol/L Normal 136 - 145 [facility] Comment on above: Performed By: #### E MRAD ####NO LOCATION NEEDED Urea nitrogen mass conc 23 mg/dL Normal 6 - 23 [facility] Comment on above: Performed By: #### E MRAD ####NO LOCATION NEEDED Albumin mass conc Canceled Normal [facility] Comment on above: Order Comment: TEST RENAL FUNCTION PANEL WAS CANCELLED, 03/31/2018 14:47 ?Cancel Reason:Discontinued. Performed By: #### E MRAD ####NO LOCATION NEEDED Anion gap 3 molar conc Canceled Normal [facility] Comment on above: Order Comment: TEST RENAL FUNCTION PANEL WAS CANCELLED, 03/31/2018 14:47 ?Cancel Reason:Discontinued. Performed By: #### E MRAD ####NO LOCATION NEEDED Calcium mass conc Canceled Normal [facility] Comment on above: Order Comment: TEST RENAL FUNCTION PANEL WAS CANCELLED, 03/31/2018 14:47 ?Cancel Reason:Discontinued. Performed By: #### E MRAD ####NO LOCATION NEEDED Chloride molar conc Canceled Normal [facility] Comment on above: Order Comment: TEST RENAL FUNCTION PANEL WAS CANCELLED, 03/31/2018 14:47 ?Cancel Reason:Discontinued. Performed By: #### E MRAD ####NO LOCATION NEEDED Creatinine mass conc Canceled Normal [facility] Comment on above: Order Comment: TEST RENAL FUNCTION PANEL WAS CANCELLED, 03/31/2018 14:47 ?Cancel Reason:Discontinued. Performed By: #### E MRAD ####NO LOCATION NEEDED GFR- AM. Canceled Normal [facility] Comment on above: Order Comment: TEST RENAL FUNCTION PANEL WAS CANCELLED, 03/31/2018 14:47 ?Cancel Reason:Discontinued. Result Comment: CALC ULATIONS OF ESTIMATED GFR ARE PERFORMED USING THE MDRD STUDY EQUATION FOR THE IDMS-TRACEABLE CREATININE METHODS. CLIN CHEM 2007;53:766-72 Performed By: #### E MRAD ####NO LOCATION NEEDED GFR-NON AM. Canceled Normal [facility] Comment on above: Order Comment: TEST RENAL FUNCTION PANEL WAS CANCELLED, 03/31/2018 14:47 ?Cancel Reason:Discontinued. Performed By: #### E MRAD ####NO LOCATION NEEDED Glucose mass conc Canceled Normal [facility] Comment on above: Order Comment: TEST RENAL FUNCTION PANEL WAS CANCELLED, 03/31/2018 14:47 ?Cancel Reason:Discontinued. Performed By: #### E MRAD ####NO LOCATION NEEDED HCO3 molar conc (Bld) Canceled Normal [facility] Comment on above: Order Comment: TEST RENAL FUNCTION PANEL WAS CANCELLED, 03/31/2018 14:47 ?Cancel Reason:Discontinued. Performed By: #### E MRAD ####NO LOCATION NEEDED Phosphate mass conc Canceled Normal [facility] Comment on above: Order Comment: TEST RENAL [...] LOCATION NEEDED Potassium molar conc Canceled Normal [facility] Comment on above: Order Comment: TEST RENAL FUNCTION PANEL WAS CANCELLED, 03/31/2018 14:47 ?Cancel Reason:Discontinued. Performed By: #### E MRAD ####NO LOCATION NEEDED Sodium molar conc Canceled Normal [facility] Comment on above: Order Comment: TEST RENAL FUNCTION PANEL WAS CANCELLED, 03/31/2018 14:47 ?Cancel Reason:Discontinued. Performed By: #### E MRAD ####NO LOCATION NEEDED Urea nitrogen mass conc Canceled Normal [facility] Comment on above: Order Comment: TEST RENAL [...] Electronically signed by: EDYTA ARIAS MD Normal [facility] ANTICARDIOLIPIN ABon 018 CAROLYN IGM 0.2 MPL U/mL Normal 0.0 - 20.0 [facility] Comment on above: Result Comment: Elev ated levels of IgM anti-cardiolipin on 2 occasions at least 12 weeks apart are laboratory criteria for anti-phospholipid syndrome according to an international consensus (J Thromb Haemost 2006 4:295). IgM anti-cardiolipin tends to give false positive results in the low positive range, especially in the presence of rheumatoid factor or cryoglobulins. Performed By: #### A CA2 ####[id number] [place] [address] CAROLYN IGA 0.5 APL U/mL Normal 0.0 - 20.0 [facility] Comment on above: Result Comment: Elev ated levels of IgA anti-cardiolipin have not been included in the laboratory criteria for anti-phospholipid syndrome according to an international consensus (J Thromb Haemost 2006 4:295). It may be helpful in identifying subgroups of patients at risk for specific clinical manifestations of anti-phospholipid syndrome. Performed By: #### A CA2 ####[id number] [place] [address] CAROLYN IGG <1.6 Normal 0.0 - 20.0 [facility] Comment on above: Result Comment: Elev ated levels of IgG anti-cardiolipin on 2 occasions at least 12 weeks apart are laboratory criteria for anti-phospholipid syndrome according to an international consensus (J Thromb Haemost 2006 4:295). Performed By: #### A CA2 ####[id number] [place] [address] BETA 2 GLYCOPROTEIN ABon B2 GLYCOPROTEIN AB IGM 0.3 U/mL Normal 0.0 - 20.0 [facility] Comment on above: Result Comment: Elev ated [...] or cryoglobulins. Performed By: #### B 2GLY ####[id number] [place] [address] B2 GLYCOPROTEIN AB IGA <0.6 Normal 0.0 - 20.0 [facility] Comment on above: Result Comment: Elev ated [...] anti-phospholipid syndrome. Performed By: #### B 2GLY ####[id number] [place] [address] B2 GLYCOPROTEIN AB IGG <1.4 Normal 0.0 - 20.0 [facility] Comment on above: Result Comment: Elev ated levels of IgG anti-Beta 2 Glycoprotein-I on 2 occasions at least 12 weeks apart are laboratory criteria for anti-phospholipid syndrome according to an international consensus (J Thromb Haemost 2006 4:295). Performed By: #### B 2GLY ####[id number] [place] [address] CBCon 03-30-2018 Erythrocyte distribution width Auto Ratio (RBC) 12.8 % Normal 11.5 - 14.5 [facility] Comment on above: Performed By: #### C BC ####[id number] [place] [address] Hematocrit Auto Volume Fraction (Bld) 43.0 % Normal 41.0 - 52.0 [facility] Comment on above: Performed By: #### C BC ####[id number] [place] [address] Hemoglobin mass conc (Bld) 14.5 g/dL Normal 13.5 - 17.5 [facility] Comment on above: Performed By: #### C BC ####[id number] [place] [address] MCHC Auto mass conc (RBC) 33.7 g/dL Normal 32.0 - 36.0 [facility] Comment on above: Performed By: #### C BC ####[id number] [place] [address] MCV Auto Entitic volume (RBC) 92 fL Normal 80 - 100 [facility] Comment on above: Performed By: #### C BC ####[id number] [place] [address] Nucleated RBC/100 WBC Ratio (Bld) 0.0 /100 WBC Normal 0.0-0.0 [facility] Comment on above: Performed By: #### C BC ####[id number] [place] [address] Platelets Auto #/vol (Bld) 238 10*3/uL Normal 150 - 450 [facility] Comment on above: Performed By: #### C BC ####[id number] [place] [address] RBC Auto #/vol (Bld) 4.66 x10E12/L Normal 4.50 - 5.90 [facility] Comment on above: Performed By: #### C BC ####[id number] [place] [address] WBC Auto #/vol (Bld) 8.1 10*3/uL Normal 4.4 - 11.3 [facility] Comment on above: Performed By: #### C BC ####[id number] [place] [address] Erythrocyte distribution width Auto Ratio (RBC) 12.8 % Normal 11.5 - 14.5 [facility] Comment on above: Performed By: #### C BC ####[id number] [place] [address] Hematocrit Auto Volume Fraction (Bld) 41.1 % Normal 41.0 - 52.0 [facility] Comment on above: Performed By: #### C BC ####[id number] [place] [address] Hemoglobin mass conc (Bld) 13.7 g/dL Normal 13.5 - 17.5 [facility] Comment on above: Performed By: #### C BC ####[id number] [place] [address] MCHC Auto mass conc (RBC) 33.3 g/dL Normal 32.0 - 36.0 [facility] Comment on above: Performed By: #### C BC ####[id number] [place] [address] MCV Auto Entitic volume (RBC) 93 fL Normal 80 - 100 [facility] Comment on above: Performed By: #### C BC ####[id number] [place] [address] Nucleated RBC/100 WBC Ratio (Bld) 0.0 /100 WBC Normal 0.0-0.0 [facility] Comment on above: Performed By: #### C BC ####[id number] [place] [address] Platelets Auto #/vol (Bld) 233 10*3/uL Normal 150 - 450 [facility] Comment on above: Performed By: #### C BC ####[id number] [place] [address] RBC Auto #/vol (Bld) 4.43 x10E12/L Low 4.50 - 5.90 [facility] Comment on above: Performed By: #### C BC ####[id number] [id number] WBC Auto #/vol (Bld) 9.2 10*3/uL Normal 4.4 - 11.3 [facility] Comment on above: Performed By: #### C BC ####[id number] [id number] Clinical Intervention - Jude dey 03-30-2018 Clinical Intervention - Pharmacy Pharmacist's Clinical Intervention:Active and Pending Medications:Nitroglycerin 50 mg/ D5W 250 mL Infusion, Solution (TRIDIL)IntraVenous Initial Admin Rate = 3 mL/hr mcg/minNotes from Pharmacy: Initial DOSE Rate = 10 mcg/min = 3 mL/hr., 30-Mar-2018,Active Pharmacist intervention: Contacted physicianType of recommendation: Contacted [employer] LABOURER to clarify lack of titration orders. Shestates since nursing cannot titrate on their own she omitted titrationparameters. She will enter new orders as titration is necessaryIs this intervention medication reconciliation related: NoExpected outcome and basis: Order clarified or correctedTime Required: 1 - 5 minutes Electronic Signatures:Soni Whitman ([facility]) (Signed 30-Mar-2018 12:11)Authored: Pharmacist's Clinical Intervention Last Updated: 30-Mar-2018 12:11 by Soni Whitman ([facility]) Normal [facility] Daily Progress Note-Cardiolo augustinon 03-30-2018 Protein mass [...] PO at 0500, cortisol level at 0700, fmsglqvvrzndhy83xr IV at 0800 and through surgery. Endocrine needs to be informed of updatesfor Brigida's management. - OR tomorrow, 2nd case- glargine 20 units tonight- trend troponins On day of CABG surgery 03/31 Hydrocortisone 30mg PO 0500Check Cortisol level at 0700ALSOStart Hydrocortisone 25mg IV q6h starting at 0800Call Endocrine on the day of surgery to keep them closely involved Objective Data: Objective Information: T [id number]/6596% Date/Time03/30 11: 13: 11: 13: 11:14Range(35.8C - 36.1C ) (74 - 91 ) (17 - 18 ) (120 - 159 )/ (63 - 92 ) (92%- 99% ) Wnrfrsu55/12 3:51: Weight in kg (Weight (kg)) 107.8105/30 3:51: Weight in lbs ((lbs)) 237.8 Physical Exam: Constitutional: Resting in bed, NADHead/Neck: No JVDRespiratory/Thorax: CTABCardiovascular: RRR, S1 T0Ualxjhbdadvamybk: soft, NT/NDExtremities: No LE edemaNeurological: alert and oriented y4Kzwcwwswzjnhe: Appropriate mood and behaviorSkin: psoriasis plaque over [...] Bolus) Injectable: 4000 unit(s) IntraVenous Push Every 2Nmqyw7. Hydrocortisone: 10 mg Oral 10. Hydrocortisone: 5 mg Oral 11. Hydrocortisone: 2.5 mg Oral 12. Insulin Glargine (Lantus) Injectable: 20 unit(s) SubCutaneous Every 19Rkccv87. Insulin Lispro (HumaLOG) Injectable: 12 unit(s) SubCutaneous 3 Times aDay Before Meals14. Insulin Lispro Mild Corrective Scale: unit(s) SubCutaneous 3 Times a DayBefore Meals15. Levothyroxine: 150 microgram(s) Oral Daily16. Mupirocin 2%: 0.5 application(s) Each Nostril 2 Times a Day17. Pantoprazole: 40 mg Oral Daily18. rOPINIRole: 6 mg Oral 19. Sodium Chloride 0.65% Nasal [place]: 2 spray(s) Each Nostril 2 Times aDay PRN Medications -- 1. Dextrose 50% in Water Injectable: 25 gram(s) IntraVenous Push Every 98Quassfy1. Glucagon Injectable: 1 mg IntraMuscular Every 15 Minutes3. Nitroglycerin SubLingual: 0.4 mg SubLingual Every 5 Minutes4. Polyethylene Glycol: 17 gram(s) Oral Daily Recent Lab Results: Results: I have reviewed these laboratory results: Glucose_POCT Trending View [id number] 12:06:00 30-Mar-2018 07:46:00Glucose-DPKZ413 H 153 H Troponin I, Serum Trending View Hhleef66-Guv-5604 09:37:00 30-Mar-2018 03:58:00Troponin I, Serum0.94 H 0.54 HHLab Comment: TROP CALLED RB TO SWEETIE TRACY, 03/30/2018 07:28 Radiology Results: Results: Conclusion:Electrocardiogram 12 Lead [Mar 30 2018 11:30AM] Assessment and Plan:Assessment:67 yo M with HTN, DLD, T2DM, Addisson's, GERD, prostate ca s/p prostatectomy [id number], hypothyroidism, psoriasis, and most recently diagnosed with a PE andmultivessel CAD transferred to cardiology at [facility] from [facility] 03/18 for CABG eval. Multiple PEs- [...] 40 mg- Cardiac Cath uploaded: 03/16 at [facility] LM: 10-20%, LAD prox: 30%, LAD mid:95%, Diag 3rd: 99%, RCA: 85 %, PLV: 50%, Circ: 95%- Plan for CABG with Dr. Gaston on 03/31, 2nd case- early AM of 03/30, started having chest pressure, resolved with nitro gtt hd38fcj/min- troponins: <0.02 -> 0.54 -> 0.94 s/p [...] with Dr. Rothman Signature/Cosignature/Attestat ion:Provider/Team Contact Info-Pager [id number]/ Additional FindingsUnstable angina overnight that resolved with IV nitroglycerin, chest and rightarm pain went to 0/[address] gaston notified, but unable to do surgerysooner. CICU and HF ICU at capacity. If chest pain recurs, may need to beconsidered for IABP . Plan for now is for CABG 03/31/2018. Low threshold forICU transfer.Patent with Shasta's and appreciate detailed steroid management plan perEndocrinology Electronic Signatures:Latisha Rothman) (Signed 30-Mar-2018 18:09)Authored: Signature/Cosignature/Attestat ionCo-Signer: Service, Subjective Data, Objective Data, Assessment and Plan,Signature/Cosignature/Att estationKate Ayala (SENIOR SYSTEMS ENGINEER-SURGICAL SUPERVISOR) (Signed 30-Mar-2018 15:06)Authored: Service, Subjective Data, Objective Data, Assessment and Plan,Signature/Cosignature/Att estation Last Updated: 30-Mar-2018 18:09 by Latisha Rothman) Normal [facility] Daily Progress Note-Endocrin ologyon 03-30-2018 Protein mass conc Consult Type: subseq uent visit/care Service: Endocrinology Subjective Data:DON ELKINS is a 67 year old Male who is Hospital Day # 13. Objective Data: Objective Information:T XFAFChD3Eepan84.97239386/6596% Date/Time03/30 11: 13: 11: 13: 11:14Range(35.8C - [...] Bolus) Injectable: 4000 unit(s) IntraVenous Push Every 9Pttyg7. Hydrocortisone: 10 mg Oral 10. Hydrocortisone: 5 mg Oral 11. Hydrocortisone: 2.5 mg Oral 12. Insulin Glargine (Lantus) Injectable: 20 unit(s) SubCutaneous Every 18Eetcw09. Insulin Lispro (HumaLOG) Injectable: 12 unit(s) SubCutaneous 3 Times aDay Before Meals14. Insulin Lispro Mild Corrective Scale: unit(s) SubCutaneous 3 Times a DayBefore Meals15. Levothyroxine: 150 microgram(s) Oral Daily16. Mupirocin 2%: 0.5 application(s) Each Nostril 2 Times a Day17. Pantoprazole: 40 mg Oral Daily18. rOPINIRole: 6 mg Oral 19. Sodium Chloride 0.65% Nasal [place]: 2 spray(s) Each Nostril 2 Times aDay PRN Medications -- 1. Dextrose 50% in Water Injectable: 25 gram(s) IntraVenous Push Every 43Uufhtjd8. Glucagon Injectable: 1 mg IntraMuscular Every 15 Minutes3. Nitroglycerin SubLingual: 0.4 mg SubLingual Every 5 Minutes4. Polyethylene Glycol: 17 gram(s) Oral Daily Recent Lab Results: Results: I have reviewed these laboratory results: Glucose_POCT Trending View [id number]-[id number] 12:06:00 30-Mar-2018 07:46:00 29-Mar-2018 20:49:00 29-Mar-2018 17:04:00 29-Mar-2018 13:15:00 29-Mar-2018 07:09:00 13-Bou-752103:50:00 28-Mar-2018 16:38:00Glucose-YENV843 H 153 H 244 H 258 H 217 H 186 H 271H 363 H Renal Function Panel Trending View Tsioem88-Hny-8955 19:58:00 28-Mar-2018 21:29:00Glucose, Nsgqx658 H 220 QFG967 L 139K4.6 4.5CL99 103Bicarbonate, Serum19 L 27Anion Gap, Serum19 70JPR88 H 86BDSBK2.32 H 1.44 HGFR-Non Bwqcvcom01 A 49 AGFR- Pslmxbhb17 59 ACalcium, Serum9.3 9.5Phosphorus, Serum4.2 4.0ALB3.9 4.0 Assessment and Plan:Assessment: Mr. Elkins is a 67 yo WM with no known history of CAD, who has a past medicalhistory of HTN, HLD, T2DM, Shasta's disease, hypothyroidism, COPD, AKASH onCPAP, prostate ca s/p prostatectomy in 2011, and psoriasis [facility] on 03/18 forWALTER youngal.Endocrine consulted fr evaluation [...] then continue Hydrocortisone as 25 mg IV s4ooosmjpljxbpm as of 8 am. 2. T2DM-- Decrease lantus to 20 units tonight-- Lispro to 12 units TIDAC to be held off after dinner time dose tonight-- Continue ISS 2 units for every 50 above 150-- POCT AC and qHs-- Hypoglycemia protocol--Diabetic diet--will follow Please page with questions [phone] Patient seen and examined, plan discussed with [...] patient (as noted in the above attestation) [id number] Electronic Signatures:Starr Quevedo) (Signed 31-Mar-2018 10:06)Authored: Signature/Cosignature/Attestat ionCo-Signer: Service, Subjective Data, Objective Data, Assessment and Plan,Signature/Cosignature/Att estationHasmukh Stephenson (Resident)) (Signed 30-Mar-2018 15:28)Authored: Service, Subjective Data, Objective Data, Assessment and Plan,Signature/Cosignature/Att estation Last Updated: 31-Mar-2018 10:06 by Starr Quevedo) Normal [facility] GLUCOSE-POCTon 03-30-2018 Glucose mass conc 207 mg/dL High 74 - 99 [facility] Comment on above: Performed By: #### G BECKY ####[id number] [place] [address] Glucose mass conc 216 mg/dL High 74 - 99 [facility] Comment on above: Performed By: #### G BECKY ####[id number] [place] [address] Glucose mass conc 205 mg/dL High 74 - 99 [facility] Comment on above: Performed By: #### G BECKY ####[id number] [place] [address] Glucose mass conc 153 mg/dL High 74 - 99 [facility] Comment on above: Performed By: #### G BECKY ####[id number] [place] [address] HEPARIN ASSAY,UFHon 03-30-20 18 HEPARIN ASSAY,UFH 0.4 IU/mL Normal [facility] Comment on above: Result Comment: The therapeutic reference range for UFH may be either 0.3-0.6 IU/mL or 0.3-0.7 IU/mL based on the clinical setting for anticoagulant therapy and the associated nomogram used. For heparin dosing guidelines based on clinical scenario and Heparin Assay results, please refer to local Pharmacy and the [facility] Guidelines for Anticoagulation therapy available on the [facility] intranet at:[email or web address]_Guidelines_for_[email or web address] Performed By: #### H AUF ####[id number] [place] [address] LUPUS ANTICOAG. WITH INTERPR ETATION[JACK]on 03-30-2018 LA INTERPRETATION SEE BELOW Normal [facility] Comment on above: Result Comment: No e [...] individual patient. Performed By: #### L AI ####[id number] [place] [address] SCT CONFIRMATION 1.10 RATIO Normal [facility] Comment on above: Performed By: #### L AI ####[id number] [id number] SCT SCREEN 0.87 RATIO Normal [facility] Comment on above: Performed By: #### L AI ####[id number] [place] [address] SCT TEST RATIO 0.79 RATIO Normal <=1.16 [facility] Comment on above: Performed By: #### L AI ####[id number] [place] [address] DRVVT CONFIRMATION 0.98 RATIO Normal [facility] Comment on above: Performed By: #### L AI ####[id number] [place] [address] DRVVT SCREEN 1.02 RATIO Normal [facility] Comment on above: Performed By: #### L AI ####[id number] [place] [address] DRVVT TEST RATIO 1.03 RATIO Normal <=1.20 [facility] Comment on above: Performed By: #### L AI ####[id number] [place] [address] RENAL FUNCTION PANELon 03-30 Albumin mass conc 4.1 g/dL Normal 3.4 - 5.0 [facility] Comment on above: Performed By: #### R ENAL ####[id number] [place] [address] Anion gap 3 molar conc 16 mmol/L Normal 10 - 20 [facility] Comment on above: Performed By: #### R ENAL ####[id number] [place] [address] Calcium mass conc 9.5 mg/dL Normal 8.6 - 10.6 [facility] Comment on above: Performed By: #### R ENAL ####[id number] [place] [address] Chloride molar conc 101 mmol/L Normal 98 - 107 [facility] Comment on above: Performed By: #### R ENAL ####[id number] [place] [address] Creatinine mass conc 1.68 mg/dL High 0.50 - 1.30 [facility] Comment on above: Performed By: #### R ENAL ####[id number] [place] [address] GFR- AM. 50 mL/min/1.73m2 Abnormal >60 [facility] Comment on above: Result Comment: CALC ULATIONS OF ESTIMATED GFR ARE PERFORMED USING THE MDRD STUDY EQUATION FOR THE IDMS-TRACEABLE CREATININE METHODS. CLIN CHEM 2007;53:766-72 Performed By: #### R ENAL ####[id number] [place] [address] GFR-NON AM. 41 mL/min/1.73m2 Abnormal >60 [facility] Comment on above: Performed By: #### R ENAL ####[id number] [place] [address] Glucose mass conc 193 mg/dL High 74 - 99 [facility] Comment on above: Performed By: #### R ENAL ####[id number] [place] [address] HCO3 molar conc (Bld) 23 mmol/L Normal 21 - 32 [facility] Comment on above: Performed By: #### R ENAL ####[id number] [place] [address] Phosphate mass conc 4.5 mg/dL Normal 2.5 - 4.9 [facility] Comment on above: Result Comment: The performance characteristics of phosphorus testing in heparinized plasma have been validated by the individual laboratory site where testing is performed. Testing on heparinized plasma is not approved by the FDA; however, such approval is not necessary. Performed By: #### R ENAL ####[id number] [place] [address] Potassium molar conc 4.4 mmol/L Normal 3.5 - 5.3 [facility] Comment on above: Performed By: #### R ENAL ####[id number] [place] [address] Sodium molar conc 136 mmol/L Normal 136 - 145 [facility] Comment on above: Performed By: #### R ENAL ####[id number] [place] [address] Urea nitrogen mass conc 24 mg/dL High 6 - 23 [facility] Comment on above: Performed By: #### R ENAL ####[id number] [id number] TROPONIN Ion 03-30-2018 Troponin I.cardiac mass conc 0.64 ng/mL High 0.00 - 0.03 [facility] Comment on above: Result Comment: LESS THAN 0.04 NG/ML: NEGATIVEREPEAT TESTING IN FOUR TO SIX HOURSIF CLINICALLY INDICATED.0.04 - 0.5 NG/ML: CONSISTENT WITH POSSIBLECARDIAC DAMAGE AND POSSIBLE INCREASEDCLINICAL RISK.SERIAL MEASUREMENTS MAY HELP ASSESS EXTENT OFMYOCARDIAL DAMAGE.>0.5 NG/ML: CONSISTENT WITH CARDIAC DAMAGE,INCREASED CLINICAL RISK AND MYOCARDIALINFARCTION. SERIAL MEASUREMENTS MAY HELPASSESS EXTENT OF MYOCARDIAL DAMAGE..Note: Troponin I testing is performed using differenttesting methodology [facility] than at [facility]. Direct result comparisons should onlybe made within the same method.. Patients receiving more than 5 mg/day of biotin may have interference in test results. A sample should be taken no sooner than eight hours after previous dose. Contact [phone] for additional information.This is a critical result.Per Laboratory policy, critical results for this testonly qualify to the call list once per 24 hours. Performed By: #### T ROP2 ####[id number] [id number] Troponin I.cardiac mass conc 0.94 ng/mL High 0.00 - 0.03 [facility] Comment on above: Result Comment: LESS THAN 0.04 NG/ML: NEGATIVEREPEAT TESTING IN FOUR TO SIX HOURSIF CLINICALLY INDICATED.0.04 - 0.5 NG/ML: CONSISTENT WITH POSSIBLECARDIAC DAMAGE AND POSSIBLE INCREASEDCLINICAL RISK.SERIAL MEASUREMENTS MAY HELP ASSESS EXTENT OFMYOCARDIAL DAMAGE.>0.5 NG/ML: CONSISTENT WITH CARDIAC DAMAGE,INCREASED CLINICAL RISK AND MYOCARDIALINFARCTION. SERIAL MEASUREMENTS MAY HELPASSESS EXTENT OF MYOCARDIAL DAMAGE..Note: Troponin I testing is performed using differenttesting methodology at [facility] than at [facility]. Direct result comparisons should onlybe made within the same method.. Patients receiving more than 5 mg/day of biotin may have interference in test results. A sample should be taken no sooner than eight hours after previous dose. Contact [phone] for additional information.This is a critical result.Per Laboratory policy, critical results for this testonly qualify to the call list once per 24 hours. Performed By: #### T ROP2 ####[id number] [place] [address] Troponin I.cardiac mass conc 0.54 ng/mL Critically high 0.00 - 0.03 [facility] Comment on above: Order Comment: TROP CALLED [...] testing is performed using differenttesting methodology at [facility] than at [facility]. Direct result comparisons should onlybe made within the same method.. Patients receiving more than 5 mg/day of biotin may have interference in test results. A sample should be taken no sooner than eight hours after previous dose. Contact [phone] for additional information.TROP CALLED RB TO SWEETIE MOLINA, 03/30/2018 07:28 Performed By: #### T ROP2 ####[id number] [place] [address] Troponin I.cardiac mass conc ng/mL Normal 0.00 - 0.03 [facility] Comment on above: Result Comment: LESS THAN 0.04 NG/ML: NEGATIVEREPEAT TESTING IN FOUR TO SIX HOURSIF CLINICALLY INDICATED.0.04 - 0.5 NG/ML: CONSISTENT WITH POSSIBLECARDIAC DAMAGE AND POSSIBLE INCREASEDCLINICAL RISK.SERIAL MEASUREMENTS MAY HELP ASSESS EXTENT OFMYOCARDIAL DAMAGE.>0.5 NG/ML: CONSISTENT WITH CARDIAC DAMAGE,INCREASED CLINICAL RISK AND MYOCARDIALINFARCTION. SERIAL MEASUREMENTS MAY HELPASSESS EXTENT OF MYOCARDIAL DAMAGE..Note: Troponin I testing is performed using differenttesting methodology at [facility] than at [facility]. Direct result comparisons should onlybe made within the same method.. Patients receiving more than 5 mg/day of biotin may have interference in test results. A sample should be taken no sooner than eight hours after previous dose. Contact [phone] for additional information. Performed By: #### T ROP2 ####[id number] [place] [address] TYPE + SCREENon 03-30-2018 ABO TYPE A Normal [facility] Comment on above: Performed By: #### T +S ####[id number] [place] [address] RH TYPE Positive Normal [facility] Comment on above: Performed By: #### T +S ####[id number] [id number] CBCon 03-29-2018 Erythrocyte distribution width Auto Ratio (RBC) 12.7 % Normal 11.5 - 14.5 [facility] Comment on above: Performed By: #### C BC ####[id number] [place] [address] Hematocrit Auto Volume Fraction (Bld) 40.1 % Low 41.0 - 52.0 [facility] Comment on above: Performed By: #### C BC ####[id number] [place] [address] Hemoglobin mass conc (Bld) 13.6 g/dL Normal 13.5 - 17.5 [facility] Comment on above: Performed By: #### C BC ####[id number] [id number] MCHC Auto mass conc (RBC) 33.9 g/dL Normal 32.0 - 36.0 [facility] Comment on above: Performed By: #### C BC ####[id number] [place] [address] MCV Auto Entitic volume (RBC) 92 fL Normal 80 - 100 [facility] Comment on above: Performed By: #### C BC ####[id number] [place] [address] Nucleated RBC/100 WBC Ratio (Bld) 0.0 /100 WBC Normal 0.0-0.0 [facility] Comment on above: Performed By: #### C BC ####[id number] [place] [address] Platelets Auto #/vol (Bld) 232 10*3/uL Normal 150 - 450 [facility] Comment on above: Performed By: #### C BC ####[id number] [place] [address] RBC Auto #/vol (Bld) 4.37 x10E12/L Low 4.50 - 5.90 [facility] Comment on above: Performed By: #### C BC ####[id number] [place] [address] WBC Auto #/vol (Bld) 9.1 10*3/uL Normal 4.4 - 11.3 [facility] Comment on above: Performed By: #### C BC ####[id number] [place] [address] Daily Progress Note-Cardiosandra chavez 03-29-2018 Protein mass conc Service: Cardiology Subjective Data:DON ELKINS is a 67 year old Male who is Hospital Day # 12. Additional Information: Resting in bed, has been ambulating in halls, hypercoagulable work up pending - plan for OR Saturday 03/31- c/w Heparin gtt Objective Data: Objective Information:T HRXJSxQ6Icbhp45.88377478/9095% Date/Time03/29 12: 12: 12: 12: 12:00Range(36C - 36.4C ) (67 - 92 ) (18 - 20 ) (131 - 161 )/ (70 - 93 ) (92% -96% ) Pain with Activity reported at 03/29 8:00: 0Pain at Rest reported at 03/29 8:00: 0 Arhdnwf68/11 4:20: Weight in kg (Weight (kg)) 107.7105/29 4:20: Weight in lbs ((lbs)) 237.4 Physical Exam: Constitutional: Resting in bed, NADHead/Neck: No JVDRespiratory/Thorax: CTABCardiovascular: RRR, S1 T4Nlzwextxrfnoxujl: soft, NT/NDExtremities: No LE edemaNeurological: alert and oriented l5Bvaoyuclmlsfq: Appropriate mood and behaviorSkin: psoriasis plaque over [...] Bolus) Injectable: 4000 unit(s) IntraVenous Push Every 9Ztklu4. Hydrocortisone: 10 mg Oral 9. Hydrocortisone: 5 mg Oral 10. Hydrocortisone: 2.5 mg Oral 11. Insulin Glargine (Lantus) Injectable: 30 unit(s) SubCutaneous Every 65Oeufi02. Insulin Lispro (HumaLOG) Injectable: 12 unit(s) SubCutaneous 3 Times aDay Before Meals13. Insulin Lispro Mild Corrective Scale: unit(s) SubCutaneous 3 Times a DayBefore Meals14. Levothyroxine: 150 microgram(s) Oral Daily15. Mupirocin 2%: 0.5 application(s) Each Nostril 2 Times a Day16. Pantoprazole: 40 mg Oral Daily17. rOPINIRole: 6 mg Oral 18. Sodium Chloride 0.65% Nasal [place]: 2 spray(s) Each Nostril 2 Times aDay PRN Medications -- 1. Dextrose 50% in Water Injectable: 25 gram(s) IntraVenous Push Every 55Zsqqike3. Glucagon Injectable: 1 mg IntraMuscular Every 15 Minutes3. Polyethylene Glycol: 17 gram(s) Oral Daily Currently Suspended Medications -- 1. Chlorhexidine Gluconate 4% Topical: 1 application(s) Topical Once Recent Lab Results: Results: I have reviewed these laboratory results: Glucose_POCT Trending View [id number]-Ikz-1104 13:15:00 29-Mar-2018 07:09:00 28-Mar-2018 19:50:00 28-Mar-2018 16:38:00Glucose-YGTR048 H 186 H 271 H 363 H [...] appear normal. Incompletepalmar arch with good collaterals. [facility] LAB PVR (Arterial Physiologic) [facility] [...] and may make absolute Segmental Limb Pressures (CORRECTIONS NURSE) unreliable.Triphasic flow is noted in the left dorsalis pedis artery, left posteriortibial artery and left common femoral artery. [facility] LAB PVR (Arterial Physiologic) BROOKS [Mar 25 2018 7:15PM] Assessment and Plan:Assessment:67 yo M with HTN, DLD, T2DM, Addisson's, GERD, prostate ca s/p prostatectomy [id number], hypothyroidism, psoriasis, and most recently diagnosed with a PE andmultivessel CAD transferred to cardiology at [facility] from [facility] 03/18 for CABG eval. 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 Electronic Signatures:Vito Patino (SENIOR SYSTEMS ENGINEER-SURGICAL SUPERVISOR) (Signed 29-Mar-2018 15:36)Authored: Service, Subjective Data, Objective Data, Assessment and Plan,Signature/Cosignature/Att estationLeonel Arteaga) (Signed 29-Mar-2018 17:23)Authored: Signature/Cosignature/Attestat ionCo-Signer: Service, Subjective Data, Objective Data, Assessment and Plan,Signature/Cosignature/Att estation Last Updated: 29-Mar-2018 17:23 by Leonel Arteaga) [facility] Daily Progress Note-Endocrin ologyon 03-29-2018 Protein mass conc Consult Type: subseq uent visit/care Service: Endocrinology Subjective Data:DON ELKINS is a 67 year old Male who is Hospital Day # 12. OR postponed till Friday. Objective Data: Objective Information:T ZCEKBkW0Rdkpp90.95045024/8596% Date/Time03/29 7: 7: 7: 7: 7:35Range(36C - [...] Bolus) Injectable: 4000 unit(s) IntraVenous Push Every 6Xgvgo6. Hydrocortisone: 10 mg Oral 9. Hydrocortisone: 5 mg Oral 10. Hydrocortisone: 2.5 mg Oral 11. Insulin Glargine (Lantus) Injectable: 30 unit(s) SubCutaneous Every 70Bndjj95. Insulin Lispro (HumaLOG) Injectable: 12 unit(s) SubCutaneous 3 Times aDay Before Meals13. Insulin Lispro Mild Corrective Scale: unit(s) SubCutaneous 3 Times a DayBefore Meals14. Levothyroxine: 150 microgram(s) Oral Daily15. Mupirocin 2%: 0.5 application(s) Each Nostril 2 Times a Day16. Pantoprazole: 40 mg Oral Daily17. rOPINIRole: 6 mg Oral 18. Sodium Chloride 0.65% Nasal [place]: 2 spray(s) Each Nostril 2 Times aDay PRN Medications -- 1. Dextrose 50% in Water Injectable: 25 gram(s) IntraVenous Push Every 07Dbrdngf1. Glucagon Injectable: 1 mg IntraMuscular Every 15 Minutes3. Polyethylene Glycol: 17 gram(s) Oral Daily Currently Suspended Medications -- 1. Chlorhexidine Gluconate 4% Topical: 1 application(s) Topical Once Recent Lab Results: Results: I have reviewed these laboratory results: Glucose_POCT Trending View [id number]-[id number] 07:09:00 28-Mar-2018 19:50:00 28-Mar-2018 16:38:00 28-Mar-2018 12:35:00 28-Mar-2018 07:38:00 27-Mar-2018 22:33:00Glucose-BQUX020 H 271 H 363 H 231 H [...] a past medicalhistory of HTN, HLD, T2DM, Shasta's disease, hypothyroidism, COPD, AKASH onCPAP, prostate ca s/p prostatectomy in 2011, and psoriasis who was transferredto HH[facility] service at [facility] from [facility] on 03/18 forCA eval.Endocrine consulted fr evaluation of Shasta disease and treatment periop Patient was on supra-therapeutic dose of HCT 20-0-20 , fludrocortisone 0.1 ,mgdailyPatient has uncontrolled HTN and uncontrolled BSMost likely tomorrow (03/23) IVC filter placement Recommendations:1. Shasta's Disease-- Fludrocortisone 0.05 mg 4 times weekly ( and friday)-- Continue Hydrocortisone to 10-5-2.5 mg at 8nf-37nn-4vr DAILY as of tomorrow -On the day [...] protocol--Diabetic diet--will follow Please page with questions [phone] Patient seen and examined, plan discussed with [...] patient (as noted in the above attestation) [id number] Electronic Signatures:Marisol Monet) (Signed 30-Mar-2018 14:34)Authored: Signature/Cosignature/Attestat ionCo-Signer: Service, Subjective Data, Objective Data, Assessment and Plan,Signature/Cosignature/Att estationHsamukh Stephenson (Resident)) (Signed 29-Mar-2018 11:39)Authored: Service, Subjective Data, Objective Data, Assessment and Plan,Signature/Cosignature/Att estation Last Updated: 30-Mar-2018 14:34 by Marisol Monet) Normal [facility] GLUCOSE-POCTon 03-29-2018 Glucose mass conc 244 mg/dL High 74 - 99 [facility] Comment on above: Performed By: #### G BECKY ####[id number] [place] [address] Glucose mass conc 258 mg/dL High 74 - 99 [facility] Comment on above: Performed By: #### G BECKY ####[id number] [place] [address] Glucose mass conc 217 mg/dL High 74 - 99 [facility] Comment on above: Performed By: #### G BECKY ####[id number] [place] [address] Glucose mass conc 186 mg/dL High 74 - 99 [facility] Comment on above: Performed By: #### G BECKY ####[id number] [id number] HEPARIN ASSAY,UFHon 03-29-20 18 HEPARIN ASSAY,UFH 0.4 IU/mL Normal [facility] Comment on above: Result Comment: The therapeutic reference range for UFH may be either 0.3-0.6 IU/mL or 0.3-0.7 IU/mL based on the clinical setting for anticoagulant therapy and the associated nomogram used. For heparin dosing guidelines based on clinical scenario and Heparin Assay results, please refer to local Pharmacy and [facility] Guidelines for Anticoagulation therapy available on the [facility] intranet at:[email or web address]_Guidelines_for_[email or web address].aspx Performed By: #### H AUF ####[id number] [id number] HEPARIN ASSAY,UFH 0.4 IU/mL Normal [facility] Comment on above: Result Comment: The therapeutic reference range for UFH may be either 0.3-0.6 IU/mL or 0.3-0.7 IU/mL based on the clinical setting for anticoagulant therapy and the associated nomogram used. For heparin dosing guidelines based on clinical scenario and Heparin Assay results, please refer to local Pharmacy and [facility] Guidelines for Anticoagulation therapy available on the [facility] intranet at:[email or web address]_Guidelines_for_[email or web address].aspx Performed By: #### H AUF ####[id number] [place] [address] RENAL FUNCTION PANELon 03-29 Albumin mass conc 3.9 g/dL Normal 3.4 - 5.0 [facility] Comment on above: Performed By: #### R ENAL ####[id number] [place] [address] Anion gap 3 molar conc 19 mmol/L Normal 10 - 20 [facility] Comment on above: Performed By: #### R ENAL ####[id number] [place] [address] Calcium mass conc 9.3 mg/dL Normal 8.6 - 10.6 [facility] Comment on above: Performed By: #### R ENAL ####[id number] [place] [address] Chloride molar conc 99 mmol/L Normal 98 - 107 [facility] Comment on above: Performed By: #### R ENAL ####[id number] [place] [address] Creatinine mass conc 1.32 mg/dL High 0.50 - 1.30 [facility] Comment on above: Performed By: #### R ENAL ####[id number] [place] [address] GFR- AM. 65 mL/min/1.73m2 Normal >60 [facility] Comment on above: Result Comment: CALC ULATIONS OF ESTIMATED GFR ARE PERFORMED USING THE MDRD STUDY EQUATION FOR THE IDMS-TRACEABLE CREATININE METHODS. CLIN CHEM 2007;53:766-72 Performed By: #### R ENAL ####[id number] [place] [address] GFR-NON AM. 54 mL/min/1.73m2 Abnormal >60 [facility] Comment on above: Performed By: #### R ENAL ####[id number] [place] [address] Glucose mass conc 237 mg/dL High 74 - 99 [facility] Comment on above: Performed By: #### R ENAL ####[id number] [place] [address] HCO3 molar conc (Bld) 19 mmol/L Low 21 - 32 [facility] Comment on above: Performed By: #### R ENAL ####[id number] [place] [address] Phosphate mass conc 4.2 mg/dL Normal 2.5 - 4.9 [facility] Comment on above: Result Comment: The performance characteristics of phosphorus testing in heparinized plasma have been validated by the individual laboratory site where testing is performed. Testing on heparinized plasma is not approved by the FDA; however, such approval is not necessary. Performed By: #### R ENAL ####[id number] [place] [address] Potassium molar conc 4.6 mmol/L Normal 3.5 - 5.3 [facility] Comment on above: Performed By: #### R ENAL ####[id number] [place] [address] Sodium molar conc 132 mmol/L Low 136 - 145 [facility] Comment on above: Performed By: #### R ENAL ####[id number] [place] [address] Urea nitrogen mass conc 24 mg/dL High 6 - 23 [facility] Comment on above: Performed By: #### R ENAL ####[id number] [place] [address] Albumin mass conc 4.0 g/dL Normal 3.4 - 5.0 [facility] Comment on above: Performed By: #### R ENAL ####[id number] [place] [address] Anion gap 3 molar conc 14 mmol/L Normal 10 - 20 [facility] Comment on above: Performed By: #### R ENAL ####[id number] [place] [address] Calcium mass conc 9.5 mg/dL Normal 8.6 - 10.6 [facility] Comment on above: Performed By: #### R ENAL ####[id number] [place] [address] Chloride molar conc 103 mmol/L Normal 98 - 107 [facility] Comment on above: Performed By: #### R ENAL ####[id number] [place] [address] Creatinine mass conc 1.44 mg/dL High 0.50 - 1.30 [facility] Comment on above: Performed By: #### R ENAL ####[id number] [place] [address] GFR- AM. 59 mL/min/1.73m2 Abnormal >60 [facility] Comment on above: Result Comment: CALC ULATIONS OF ESTIMATED GFR ARE PERFORMED USING THE MDRD STUDY EQUATION FOR THE IDMS-TRACEABLE CREATININE METHODS. CLIN CHEM 2007;53:766-72 Performed By: #### R ENAL ####[id number] [place] [address] GFR-NON AM. 49 mL/min/1.73m2 Abnormal >60 [facility] Comment on above: Performed By: #### R ENAL ####[id number] [place] [address] Glucose mass conc 220 mg/dL High 74 - 99 [facility] Comment on above: Performed By: #### R ENAL ####[id number] [place] [address] HCO3 molar conc (Bld) 27 mmol/L Normal 21 - 32 [facility] Comment on above: Performed By: #### R ENAL ####[id number] [place] [address] Phosphate mass conc 4.0 mg/dL Normal 2.5 - 4.9 [facility] Comment on above: Result Comment: The performance characteristics of phosphorus testing in heparinized plasma have been validated by the individual laboratory site where testing is performed. Testing on heparinized plasma is not approved by the FDA; however, such approval is not necessary. Performed By: #### R ENAL ####[id number] [place] [address] Potassium molar conc 4.5 mmol/L Normal 3.5 - 5.3 [facility] Comment on above: Performed By: #### R ENAL ####[id number] [place] [address] Sodium molar conc 139 mmol/L Normal 136 - 145 [facility] Comment on above: Performed By: #### R ENAL ####[id number] [place] [address] Urea nitrogen mass conc 23 mg/dL Normal 6 - 23 [facility] Comment on above: Performed By: #### R ENAL ####[id number] [place] [address] CBCon 03-28-2018 Erythrocyte distribution width Auto Ratio (RBC) 12.8 % Normal 11.5 - 14.5 [facility] Comment on above: Performed By: #### C BC ####[id number] [place] [address] Hematocrit Auto Volume Fraction (Bld) 41.4 % Normal 41.0 - 52.0 [facility] Comment on above: Performed By: #### C BC ####[id number] [place] [address] Hemoglobin mass conc (Bld) 13.9 g/dL Normal 13.5 - 17.5 [facility] Comment on above: Performed By: #### C BC ####[id number] [place] [address] MCHC Auto mass conc (RBC) 33.6 g/dL Normal 32.0 - 36.0 [facility] Comment on above: Performed By: #### C BC ####[id number] [place] [address] MCV Auto Entitic volume (RBC) 93 fL Normal 80 - 100 [facility] Comment on above: Performed By: #### C BC ####[id number] [place] [address] Nucleated RBC/100 WBC Ratio (Bld) 0.0 /100 WBC Normal 0.0-0.0 [facility] Comment on above: Performed By: #### C BC ####[id number] [place] [address] Platelets Auto #/vol (Bld) 230 10*3/uL Normal 150 - 450 [facility] Comment on above: Performed By: #### C BC ####[id number] [place] [address] RBC Auto #/vol (Bld) 4.46 x10E12/L Low 4.50 - 5.90 [facility] Comment on above: Performed By: #### C BC ####[id number] [place] [address] WBC Auto #/vol (Bld) 8.2 10*3/uL Normal 4.4 - 11.3 [facility] Comment on above: Performed By: #### C BC ####[id number] [place] [address] Daily Progress Note-Cardiosandra chavez 03-28-2018 Protein mass conc Service: Cardiology Subjective Data:DON ELKINS is a 67 year old Male who is Hospital Day # 11. Additional Information: Resting in bed, has been ambulating in halls, hypercoagulable work up pending,BS better controlled - plan for OR Saturday 03/31- c/w Heparin gtt Objective Data: Objective Information:T IOGBBbU6Ccnna01.44654701/8196% Date/Time03/28 8: 8: 8: 8: 8:00Range(35.9C - 36.7C ) (71 - 85 ) (17 - 20 ) (125 - 165 )/ (72 - 97 ) (94%- 96% ) Pain at Rest reported at 03/28 0:05: 0 Pijifam53/10 3:52: Weight in kg (Weight (kg)) 107.10 3:52: Weight in lbs ((lbs)) 237.2 Physical Exam: Constitutional: Resting in bed, NADHead/Neck: No JVDRespiratory/Thorax: CTABCardiovascular: RRR, S1 S2Ggngcwgjoicmufbc: soft, NT/NDExtremities: No LE edemaNeurological: alert and oriented w3Ljauigpgdlxej: Appropriate mood and behaviorSkin: psoriasis plaque over [...] Bolus) Injectable: 4000 unit(s) IntraVenous Push Every 6Zttiu9. Hydrocortisone: 10 mg Oral 9. Hydrocortisone: 5 mg Oral 10. Hydrocortisone: 2.5 mg Oral 11. Insulin Glargine (Lantus) Injectable: 30 unit(s) SubCutaneous Every 95Drwxn04. Insulin Lispro (HumaLOG) Injectable: 10 unit(s) SubCutaneous 3 Times aDay Before Meals13. Insulin Lispro Mild Corrective Scale: unit(s) SubCutaneous 3 Times a DayBefore Meals14. Levothyroxine: 150 microgram(s) Oral Daily15. Mupirocin 2%: 0.5 application(s) Each Nostril 2 Times a Day16. Pantoprazole: 40 mg Oral Daily17. rOPINIRole: 6 mg Oral 18. Sodium Chloride 0.65% Nasal [place]or[place]: 2 spray(s) Each Nostril 2 Times aDay PRN Medications -- 1. Dextrose 50% in Water Injectable: 25 gram(s) IntraVenous Push Every 34Nqiplka0. Glucagon Injectable: 1 mg IntraMuscular Every 15 Minutes3. Polyethylene Glycol: 17 gram(s) Oral Daily Currently Suspended Medications -- 1. Chlorhexidine Gluconate 4% Topical: 1 application(s) Topical Once Recent Lab Results: Results: I have reviewed these laboratory results: Glucose_POCT Trending View [id number]-[id number]-[id number] 07:38:00 27-Mar-2018 22:33:00Glucose-CBRS239 H 268 H Heparin assay, UFH 27-Mar-2018 [...] and may make absolute Segmental Limb Pressures (CORRECTIONS NURSE) unreliable.Triphasic flow is noted in the left dorsalis pedis artery, left posteriortibial artery and left common femoral artery. VASC LAB PVR (Arterial Physiologic) BROOKS [Mar 25 2018 7:15PM] Assessment and Plan:Assessment:67 yo M with HTN, DLD, T2DM, Addisson's, GERD, prostate ca s/p prostatectomy [id number], hypothyroidism, psoriasis, and most recently diagnosed with a PE andmultivessel CAD transferred to cardiology at [facility] from [facility] 03/18 for CABG eval. Multiple PEs- [...] 40 mg- Cardiac Cath uploaded: 03/16 at [facility] LM: 10-20%, LAD prox: 30%, LAD [...] with heparin gtt.Await CABG. Electronic Signatures:Vito Patino (SENIOR SYSTEMS ENGINEER-SURGICAL SUPERVISOR) (Signed 28-Mar-2018 10:27)Authored: Service, Subjective Data, Objective Data, Assessment and Plan,Signature/Cosignature/Att estationLeonel Arteaga) (Signed 28-Mar-2018 20:06)Authored: Signature/Cosignature/Attestat ionCo-Signer: Service, Subjective Data, Objective Data, Assessment and Plan,Signature/Cosignature/Att estation Last Updated: 28-Mar-2018 20:06 by Leonel Arteaga) Normal [facility] GLUCOSE-POCTon 03-28-2018 Glucose mass conc 271 mg/dL High 74 - 99 [facility] Comment on above: Performed By: #### G BECKY ####[id number] [place] [address] Glucose mass conc 363 mg/dL High 74 - 99 [facility] Comment on above: Performed By: #### G BECKY ####[id number] [place] [address] Glucose mass conc 231 mg/dL High 74 - 99 [facility] Comment on above: Performed By: #### G BECKY ####[id number] [place] [address] Glucose mass conc 171 mg/dL High 74 - 99 [facility] Comment on above: Performed By: #### G BECKY ####[id number] [place] [address] Glucose mass conc 268 mg/dL High 74 - 99 [facility] Comment on above: Performed By: #### G BECKY ####[id number] [place] [address] RENAL FUNCTION PANELon 03-28 Albumin mass conc 3.9 g/dL Normal 3.4 - 5.0 [facility] Comment on above: Performed By: #### R ENAL ####[id number] [place] [address] Anion gap 3 molar conc 18 mmol/L Normal 10 - 20 [facility] Comment on above: Performed By: #### R ENAL ####[id number] [place] [address] Calcium mass conc 9.3 mg/dL Normal 8.6 - 10.6 [facility] Comment on above: Performed By: #### R ENAL ####[id number] [place] [address] Chloride molar conc 98 mmol/L Normal 98 - 107 [facility] Comment on above: Performed By: #### R ENAL ####[id number] [place] [address] Creatinine mass conc 1.48 mg/dL High 0.50 - 1.30 [facility] Comment on above: Performed By: #### R ENAL ####[id number] [place] [address] GFR- AM. 57 mL/min/1.73m2 Abnormal >60 [facility] Comment on above: Result Comment: CALC ULATIONS OF ESTIMATED GFR ARE PERFORMED USING THE MDRD STUDY EQUATION FOR THE IDMS-TRACEABLE CREATININE METHODS. CLIN CHEM 2007;53:766-72 Performed By: #### R ENAL ####[id number] [place] [address] GFR-NON AM. 47 mL/min/1.73m2 Abnormal >60 [facility] Comment on above: Performed By: #### R ENAL ####[id number] [place] [address] Glucose mass conc 202 mg/dL High 74 - 99 [facility] Comment on above: Performed By: #### R ENAL ####[id number] [place] [address] HCO3 molar conc (Bld) 23 mmol/L Normal 21 - 32 [facility] Comment on above: Performed By: #### R ENAL ####[id number] [place] [address] Phosphate mass conc 4.0 mg/dL Normal 2.5 - 4.9 [facility] Comment on above: Result Comment: The performance characteristics of phosphorus testing in heparinized plasma have been validated by the individual laboratory site where testing is performed. Testing on heparinized plasma is not approved by the FDA; however, such approval is not necessary. Performed By: #### R ENAL ####[id number] [place] [address] Potassium molar conc 4.2 mmol/L Normal 3.5 - 5.3 [facility] Comment on above: Performed By: #### R ENAL ####[id number] [place] [address] Sodium molar conc 135 mmol/L Low 136 - 145 [facility] Comment on above: Performed By: #### R ENAL ####[id number] [place] [address] Urea nitrogen mass conc 22 mg/dL Normal 6 - 23 [facility] Comment on above: Performed By: #### R ENAL ####[id number] [place] [address] Clinical Event Note-Revaluat ion of PEon 03-27-2018 [...] 07:25 by Princess Garnica ( (Fellow)) Normal [facility] Daily Progress Note-Cardiosandra augustinelizabeth 03-27-2018 Protein mass conc Service: Cardiology Subjective Data:DON ELKINS is a 67 year old Male who is Hospital Day # 10. Additional Information:Patient feeling well. Out of bed and ambulating. No CP or SOB. Cont heparingtt. - plan for OR Wednesday 03/28- will draw hypercoagulable labs- increase lispro to 10units TID AC Objective Data: Objective Information: T EDSOPfY5Crvpx92.35604960/8494% Date/Time03/27 8: 8: 8: 8: 8:05Range(35.7C - 36.4C ) (73 - 78 ) (18 - 21 ) (122 - 152 )/ (78 - 84 ) (94%- 97% ) Wbjpvik72/9 4:54: Weight in kg (Weight (kg)) 82905/9 4:54: Weight in lbs ((lbs)) 236 Physical Exam: Constitutional: Resting in bed, NADHead/Neck: No JVDRespiratory/Thorax: CTABCardiovascular: RRR, S1 H7Dzaradneoouyxphj: soft, NT/NDExtremities: No LE edemaNeurological: alert and oriented l0Nopigwphgzofv: Appropriate mood and behaviorSkin: psoriasis plaque over [...] Bolus) Injectable: 4000 unit(s) IntraVenous Push Every 2Cvkxk2. Hydrocortisone: 10 mg Oral 9. Hydrocortisone: 5 mg Oral 10. Hydrocortisone: 2.5 mg Oral 11. Insulin Glargine (Lantus) Injectable: 30 unit(s) SubCutaneous Every 07Mbvuz11. Insulin Lispro (HumaLOG) Injectable: 8 unit(s) SubCutaneous 3 Times aDay Before Meals13. Insulin Lispro Mild Corrective Scale: unit(s) SubCutaneous 3 Times a DayBefore Meals14. Levothyroxine: 150 microgram(s) Oral Daily15. Mupirocin 2%: 0.5 application(s) Each Nostril 2 Times a Day16. Pantoprazole: 40 mg Oral Daily17. rOPINIRole: 6 mg Oral 18. Sodium Chloride 0.65% Nasal [place]: 2 spray(s) Each Nostril 2 Times aDay PRN Medications -- 1. Dextrose 50% in Water Injectable: 25 gram(s) IntraVenous Push Every 64Lctuffh7. Glucagon Injectable: 1 mg IntraMuscular Every 15 Minutes3. Polyethylene Glycol: 17 gram(s) Oral Daily Currently Suspended Medications -- 1. Chlorhexidine Gluconate 4% Topical: 1 application(s) Topical Once Recent Lab Results: Results: I have reviewed these laboratory results: Glucose_POCT Trending View Chmujm04-Zok-1277 08:02:00 26-Mar-2018 21:14:00 26-Mar-2018 19:41:00 26-Mar-2018 15:43:00 26-Mar-2018 12:28:00 26-Mar-2018 07:27:00Glucose-FUAB273 H 302 H 237 H 256 H 285 H 154 H Complete Blood Count Trending View Wpynjj61-Wyi-4490 16:27:00 26-Mar-2018 00:38:00White Blood Cell Count8.0 8.2Nucleated Erythrocyte Count0.0 0.0Red Blood Cell Count4.47 L 4.36 LHGB14.1 13.5HCT41.0 39.6 LMCV92 66NBBD69.4 34.0GXV656 211RDW-CV12.8 12.9 Renal Function Panel Trending View Asxtqi76-Xio-6313 16:27:00 26-Mar-2018 00:38:00Glucose, Oayob789 H 153 YLD500 138K4.6 4.9GH427 102Bicarbonate, Serum25 24Anion Gap, Serum16 57HGJ48 67UOHUG0.46 H 1.40 HGFR-Non Pchzbzzo21 A 50 AGFR- Cmlcvqff45 A 61Calcium, Serum9.4 9.3Phosphorus, Serum4.2 4.8ALB4.0 3.9 Heparin assay, UFH Trending View [id number] 16:27:00 26-Mar-2018 00:39:00Heparin assay, UFH0.3 0.4 Radiology [...] and may make absolute Segmental Limb Pressures (CORRECTIONS NURSE) unreliable.Triphasic flow is noted in the left dorsalis pedis artery, left posteriortibial artery and left common femoral artery. VASC LAB PVR (Arterial Physiologic) BROOKS [Mar 25 2018 7:15PM] Assessment and Plan:Assessment:67 yo M with HTN, DLD, T2DM, Addisson's, GERD, prostate ca s/p prostatectomy [id number], hypothyroidism, psoriasis, and most recently diagnosed with a PE andmultivessel CAD transferred to cardiology at [facility] from [facility] 03/18 for CABG eval. 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 Objective Data: Objective Information:T PHPMWwG0Pzcup80.88802498/7795% Date/Time03/27 15: 15: 15: 15: 15:43Range(35.9C - [...] Bolus) Injectable: 4000 unit(s) IntraVenous Push Every 2Bshum6. Hydrocortisone: 10 mg Oral 9. Hydrocortisone: 5 mg Oral 10. Hydrocortisone: 2.5 mg Oral 11. Insulin Glargine (Lantus) Injectable: 30 unit(s) SubCutaneous Every 09Bcfgu05. Insulin Lispro (HumaLOG) Injectable: 10 unit(s) SubCutaneous 3 Times aDay Before Meals13. Insulin Lispro Mild Corrective Scale: unit(s) SubCutaneous 3 Times a DayBefore Meals14. Levothyroxine: 150 microgram(s) Oral Daily15. Mupirocin 2%: 0.5 application(s) Each Nostril 2 Times a Day16. Pantoprazole: 40 mg Oral Daily17. rOPINIRole: 6 mg Oral 18. Sodium Chloride 0.65% Nasal [place]: 2 spray(s) Each Nostril 2 Times aDay PRN Medications -- 1. Dextrose 50% in Water Injectable: 25 gram(s) IntraVenous Push Every 36Hstvwan5. Glucagon Injectable: 1 mg IntraMuscular Every 15 Minutes3. Polyethylene Glycol: 17 gram(s) Oral Daily Currently Suspended Medications -- 1. Chlorhexidine Gluconate 4% Topical: 1 application(s) Topical Once Recent Lab Results: Results: I have reviewed these laboratory results: Glucose_POCT Trending View [id number]-Syb-2346 16:33:00 27-Mar-2018 12:54:00 27-Mar-2018 08:02:00 26-Mar-2018 21:14:00 26-Mar-2018 19:41:00 26-Mar-2018 15:43:00 03-Yfs-104795:28:00 26-Mar-2018 07:27:00 25-Mar-2018 21:21:00Glucose-BBUA207 H 229 H 152 H 302 H 237 H 256 H 285H 154 H 181 H Renal Function Panel Trending View Sykala91-Kis-1461 16:27:00 26-Mar-2018 00:38:00Glucose, Plhik198 H 153 KOM646 138K4.6 4.5VN475 102Bicarbonate, Serum25 24Anion Gap, Serum16 06REI28 39RKYGT4.46 H 1.40 HGFR-Non Aowovevr32 A 50 AGFR- Hdpyblok16 A 61Calcium, Serum9.4 9.3Phosphorus, Serum4.2 4.8ALB4.0 3.9 Assessment and Plan:Assessment: Mr. 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 Shasta's Disease-- Fludrocortisone 0.05 mg 4 times weekly ( and friday)-- Continue Hydrocortisone to 10-5-2.5 mg at 7ug-08we-9zs DAILY as of tomorrow -On the day [...] protocol--Diabetic diet--will follow Please page with questions [phone] Patient seen and examined, plan discussed with [...] patient (as noted in the above attestation) [id number] Electronic Signatures:Starr Quevedo) (Signed 31-Mar-2018 10:05)Authored: Signature/Cosignature/Attestat ionCo-Signer: Service, Subjective Data, Objective Data, Assessment and Plan,Signature/Cosignature/Att Hasmukh Gabriel (Resident)) (Signed 27-Mar-2018 17:17)Authored: Service, Subjective Data, Objective Data, Assessment and Plan,Signature/Cosignature/Att estation Last Updated: 31-Mar-2018 10:05 by Starr Quevedo) Normal [facility] GLUCOSE-POCTon 03-27-2018 Glucose mass conc 287 mg/dL High 74 - 99 [facility] Comment on above: Performed By: #### G BECKY ####[id number] [place] [address] Glucose mass conc 229 mg/dL High 74 - 99 [facility] Comment on above: Performed By: #### G BECKY ####[id number] [place] [address] Glucose mass conc 152 mg/dL High 74 - 99 [facility] Comment on above: Performed By: #### G BECKY ####[id number] [place] [address] HEPARIN ASSAY,UFHon 03-27-20 18 HEPARIN ASSAY,UFH 0.4 IU/mL Normal [facility] Comment on above: Result Comment: The therapeutic reference range for UFH may be either 0.3-0.6 IU/mL or 0.3-0.7 IU/mL based on the clinical setting for anticoagulant therapy and the associated nomogram used. For heparin dosing guidelines based on clinical scenario and Heparin Assay results, please refer to local Pharmacy and the [facility] Guidelines for Anticoagulation therapy available on the [facility] intranet at:[email or web address] Performed By: #### H AUF ####[id number] [place] [address] CBCon 03-26-2018 Erythrocyte distribution width Auto Ratio (RBC) 12.8 % Normal 11.5 - 14.5 [facility] Comment on above: Performed By: #### C BC ####[id number] [place] [address] Hematocrit Auto Volume Fraction (Bld) 41.0 % Normal 41.0 - 52.0 [facility] Comment on above: Performed By: #### C BC ####[id number] [place] [address] Hemoglobin mass conc (Bld) 14.1 g/dL Normal 13.5 - 17.5 [facility] Comment on above: Performed By: #### C BC ####[id number] [place] [address] MCHC Auto mass conc (RBC) 34.4 g/dL Normal 32.0 - 36.0 [facility] Comment on above: Performed By: #### C BC ####[id number] [place] [address] MCV Auto Entitic volume (RBC) 92 fL Normal 80 - 100 [facility] Comment on above: Performed By: #### C BC ####[id number] [place] [address] Nucleated RBC/100 WBC Ratio (Bld) 0.0 /100 WBC Normal 0.0-0.0 [facility] Comment on above: Performed By: #### C BC ####[id number] [place] [address] Platelets Auto #/vol (Bld) 231 10*3/uL Normal 150 - 450 [facility] Comment on above: Performed By: #### C BC ####[id number] [place] [address] RBC Auto #/vol (Bld) 4.47 x10E12/L Low 4.50 - 5.90 [facility] Comment on above: Performed By: #### C BC ####[id number] [place] [address] WBC Auto #/vol (Bld) 8.0 10*3/uL Normal 4.4 - 11.3 [facility] Comment on above: Performed By: #### C BC ####[id number] [place] [address] Erythrocyte distribution width Auto Ratio (RBC) 12.9 % Normal 11.5 - 14.5 [facility] Comment on above: Performed By: #### C BC ####[id number] [place] [address] Hematocrit Auto Volume Fraction (Bld) 39.6 % Low 41.0 - 52.0 [facility] Comment on above: Performed By: #### C BC ####[id number] [place] [address] Hemoglobin mass conc (Bld) 13.5 g/dL Normal 13.5 - 17.5 [facility] Comment on above: Performed By: #### C BC ####[id number] [place] [address] MCHC Auto mass conc (RBC) 34.1 g/dL Normal 32.0 - 36.0 [facility] Comment on above: Performed By: #### C BC ####[id number] [place] [address] MCV Auto Entitic volume (RBC) 91 fL Normal 80 - 100 [facility] Comment on above: Performed By: #### C BC ####[id number] [place] [address] Nucleated RBC/100 WBC Ratio (Bld) 0.0 /100 WBC Normal 0.0-0.0 [facility] Comment on above: Performed By: #### C BC ####[id number] [place] [address] Platelets Auto #/vol (Bld) 211 10*3/uL Normal 150 - 450 [facility] Comment on above: Performed By: #### C BC ####[id number] [place] [address] RBC Auto #/vol (Bld) 4.36 x10E12/L Low 4.50 - 5.90 [facility] Comment on above: Performed By: #### C BC ####[id number] [place] [address] WBC Auto #/vol (Bld) 8.2 10*3/uL Normal 4.4 - 11.3 [facility] Comment on above: Performed By: #### C BC ####[id number] [place] [address] Consulton 11-08-2018 Consult Allergies: No Known Allergies: [...] 06-Apr-2018 17:31 by Amador Joel (DDS) Normal [facility] Daily Progress Note-Cardiac Surgeryon 03-26-2018 Protein mass conc Service: Cardiac Iris dane Subjective Data:DON ELKINS is a 67 year old Male who is Hospital Day # 9. Objective Data: Objective Information: T VKECVnN7Mhgjv95.22142714/8195% Date/Time03/26 11: 11: 11: 11: 11:45Range(35.9C - 36.8C ) (67 - 75 ) (17 - 18 ) (124 - 173 )/ (77 - 84 ) (95%- 97% ) Pain with Activity reported at 03/26 15:37: 0Pain at Rest reported at 03/26 15:37: 0 Hwspuaw51/8 3:38: Weight in kg (Weight (kg)) 107.211/8 [...] Bolus) Injectable: 4000 unit(s) IntraVenous Push Every 6Tkikz1. Hydrocortisone: 10 mg Oral 9. Hydrocortisone: 5 mg Oral 10. Hydrocortisone: 2.5 mg Oral 11. Insulin Glargine (Lantus) Injectable: 30 unit(s) SubCutaneous Every 81Lecee76. Insulin Lispro (HumaLOG) Injectable: 8 unit(s) SubCutaneous 3 Times aDay Before Meals13. Insulin Lispro Mild Corrective Scale: unit(s) SubCutaneous 3 Times a DayBefore Meals14. Levothyroxine: 150 microgram(s) Oral Daily15. Mupirocin 2%: 0.5 application(s) Each Nostril 2 Times a Day16. Pantoprazole: 40 mg Oral Daily17. Polyethylene Glycol: 17 gram(s) Oral Daily18. rOPINIRole: 6 mg Oral 19. Sodium Chloride 0.65% Nasal [place]: 2 spray(s) Each Nostril 2 Times aDay PRN Medications -- 1. Dextrose 50% in Water Injectable: 25 gram(s) IntraVenous Push Every 41Nqeoqid0. Glucagon Injectable: 1 mg IntraMuscular Every 15 Minutes Currently Suspended Medications -- 1. Chlorhexidine Gluconate 4% Topical: 1 application(s) Topical Once Recent Lab Results: Results: I have reviewed these laboratory results: Glucose_POCT Trending View [id number]-Tbp-4143 12:28:00 26-Mar-2018 07:27:00Glucose-BCGY161 H 154 H Heparin assay, UFH 26-Mar-2018 [...] and may make absolute Segmental Limb Pressures (CORRECTIONS NURSE) unreliable.Triphasic flow is noted in the left [...] A4C: 17.4cm2LA Area A2C: 14.2 cm2LA [place] A4C: 6.0 cmLA [place] A2C: 4.7 cmLA Volume Index: 15.2 ml/m2RA VOLUME BY A/L METHOD: Normal Ranges:RA Area A4C: 12.8 fa1C-IAOW MEASUREMENTS: Normal Ranges:Ao Root: 2.90 cm (2.0-3.7cm)LAs: [...] 2011, and psoriasis [facility] for CABG eval. Ptpresented to [facility] with chest pressure and dyspnea. He as found to havebilat PEs, was started on Heparin gtt, and transferred to [facility]. He wasfound to have a troponin leak at 2.25. Cardiology was consulted and the patientwas diagnosed with ACS, NSTEMI. He underwent a TTE and cath. He had normal EF,mild AI, and triple vessel CAD so was transferred to [facility] for CABG eval. Cardiac surgery consulted 03/19 [...] clinically Signature/Cosignature/Attestat ion:Provider/Team Contact Info-Pager Numbercardiac surgery [phone] Electronic Signatures:Alexandra Milligan (PAC) (Signed 26-Mar-2018 16:11)Authored: Service, Subjective Data, Objective Data, Assessment and Plan,Signature/Cosignature/Att estation Last Updated: 26-Mar-2018 16:11 by Alexandra Milligan (KLICKITAT [facility]) Normal [facility] Daily Progress Note-Cardiosandra augustinelizabeth 03-26-2018 Protein mass conc Service: Cardiology Subjective Data:DON ELKINS is a 67 year old Male who is Hospital Day # 9. Additional Information:No changes in plan today, awaiting OR Friday. cont heparin gtt. No changes perEndo recs. - no changes Objective Data: Objective Information: T HGJRVvH1Vdpdw11.45227855/8195% Date/Time03/26 11: 11: 11: 11: 11:45Range(35.9C - 36.8C ) (67 - 75 ) (17 - 18 ) (124 - 173 )/ (77 - 84 ) (95%- 97% ) Rujtfdo92/8 3:38: Weight in kg (Weight (kg)) 107.211 3:38: Weight in lbs ((lbs)) 236.3 Physical Exam: Constitutional: Resting in bed, NADHead/Neck: No JVDRespiratory/Thorax: CTABCardiovascular: RRR, S1 E1Jopnuwsvlmxmfmcb: soft, NT/NDExtremities: No LE edemaNeurological: alert and oriented q7Zswnbpkemtwka: Appropriate mood and behaviorSkin: psoriasis plaque over [...] Bolus) Injectable: 4000 unit(s) IntraVenous Push Every 4Xcbfa4. Hydrocortisone: 10 mg Oral 9. Hydrocortisone: 5 mg Oral 10. Hydrocortisone: 2.5 mg Oral 11. Insulin Glargine (Lantus) Injectable: 30 unit(s) SubCutaneous Every 01Hrgvb11. Insulin Lispro (HumaLOG) Injectable: 8 unit(s) SubCutaneous 3 Times aDay Before Meals13. Insulin Lispro Mild Corrective Scale: unit(s) SubCutaneous 3 Times a DayBefore Meals14. Levothyroxine: 150 microgram(s) Oral Daily15. Mupirocin 2%: 0.5 application(s) Each Nostril 2 Times a Day16. Pantoprazole: 40 mg Oral Daily17. Polyethylene Glycol: 17 gram(s) Oral Daily18. rOPINIRole: 6 mg Oral 19. Sodium Chloride 0.65% Nasal [place]: 2 spray(s) Each Nostril 2 Times aDay PRN Medications -- 1. Dextrose 50% in Water Injectable: 25 gram(s) IntraVenous Push Every 64Fwdiamn3. Glucagon Injectable: 1 mg IntraMuscular Every 15 Minutes Currently Suspended Medications -- 1. Chlorhexidine Gluconate 4% Topical: 1 application(s) Topical Once Recent Lab Results: Results: I have reviewed these laboratory results: Glucose_POCT Trending View Elvyee57-Tkr-7472 12:28:00 26-Mar-2018 07:27:00 25-Mar-2018 21:21:00 25-Mar-2018 16:15:00 25-Mar-2018 11:19:00 25-Mar-2018 07:47:00Glucose-CCOZ912 H 154 H 181 H 306 H 291 H 163 H Heparin assay, UFH Trending View Wexqzm95-Rxt-5137 00:39:00 25-Mar-2018 07:31:00Heparin assay, UFH0.4 0.4 Complete [...] and may make absolute Segmental Limb Pressures (CORRECTIONS NURSE) unreliable.Triphasic flow is noted in the left dorsalis pedis artery, left posteriortibial artery and left common femoral artery. VASC LAB PVR (Arterial Physiologic) BROOKS [Mar 25 2018 7:15PM] Assessment and Plan:Assessment:67 yo M with HTN, DLD, T2DM, Addisson's, GERD, prostate ca s/p prostatectomy [id number], hypothyroidism, psoriasis, and most recently diagnosed with a PE andmultivessel CAD transferred to cardiology at [facility] from [facility] 03/18 for CABG eval. 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 Arteaga Signature/Cosignature/Attestat ion:Provider/Team Contact Info-Pager [phone] Only - Shared Visit with Advanced Practice ProviderThis is a sharedvisit. I have reviewed the Advanced Practice Providers encounter note,approve the Advanced Practice Providers documentation, and provide thefollowing additional information from my personal encounter.Comments/ Additional FindingsContinue heparin gtt.Await CABG next week. Electronic Signatures:Leonel Arteaga) (Signed 28-Mar-2018 19:47)Authored: Signature/Cosignature/Attestat ionCo-Signer: Service, Subjective Data, Objective Data, Assessment and Plan,Signature/Cosignature/Att estationKate Ayala (SENIOR SYSTEMS ENGINEER-SURGICAL SUPERVISOR) (Signed 26-Mar-2018 16:20)Authored: Service, Subjective Data, Objective Data, Assessment and Plan,Signature/Cosignature/Att estation Last Updated: 28-Mar-2018 19:47 by Leonel Arteaga) Normal [facility] Daily Progress Note-Endocrin cherie 03-26-2018 Protein mass conc Service: Endocrinolo gy Subjective Data:DON ELKINS is a 67 year old Male who is Hospital Day # 9. 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 Brigida's Disease-- Fludrocortisone 0.05 mg 4 times weekly ( and friday)-- Continue Hydrocortisone to 10-5-2.5 mg at 1sq-99jb-2ns DAILY as of tomorrow -On the day [...] protocol--Diabetic diet--will follow Please page with questions [phone] Patient seen and examined, plan discussed with [...] patient (as noted in the above attestation) [id number] Electronic Signatures:Starr Quevedo) (Signed 28-Mar-2018 09:07)Authored: Service, Signature/Cosignature/Attestat ionCo-Signer: Subjective Data, Objective Data, Assessment and Plan,Signature/Cosignature/Att estationHasmukh Stephenson (Resident)) (Signed 26-Mar-2018 11:56)Authored: Subjective Data, Objective Data, Assessment and Plan,Signature/Cosignature/Att estation Last Updated: 28-Mar-2018 09:07 by Starr Quevedo) Normal [facility] GLUCOSE-POCTon 03-26-2018 Glucose mass conc 302 mg/dL High 74 - 99 [facility] Comment on above: Performed By: #### G BECKY ####[id number] [place] [address] Glucose mass conc 237 mg/dL High 74 - 99 [facility] Comment on above: Performed By: #### G BECKY ####[id number] [place] [address] Glucose mass conc 256 mg/dL High 74 - 99 [facility] Comment on above: Performed By: #### G BECKY ####[id number] [place] [address] Glucose mass conc 285 mg/dL High 74 - 99 [facility] Comment on above: Performed By: #### G BECKY ####[id number] [place] [address] Glucose mass conc 154 mg/dL High 74 - 99 [facility] Comment on above: Performed By: #### G BECKY ####[id number] [place] [address] HEPARIN ASSAY,UFHon 03-26-20 18 HEPARIN ASSAY,UFH 0.3 IU/mL Normal [facility] Comment on above: Result Comment: The therapeutic reference range for UFH may be either 0.3-0.6 IU/mL or 0.3-0.7 IU/mL based on the clinical setting for anticoagulant therapy and the associated nomogram used. For heparin dosing guidelines based on clinical scenario and Heparin Assay results, please refer to local Pharmacy and [facility] Guidelines for Anticoagulation therapy available on the [facility] intranet at:[email or web address]_[email or web address] Performed By: #### H AUF ####[id number] [place] [address] HEPARIN ASSAY,UFH 0.4 IU/mL Normal [facility] Comment on above: Result Comment: The therapeutic reference range for UFH may be either 0.3-0.6 IU/mL or 0.3-0.7 IU/mL based on the clinical setting for anticoagulant therapy and the associated nomogram used. For heparin dosing guidelines based on clinical scenario and Heparin Assay results, please refer to local Pharmacy and the [facility] Guidelines for Anticoagulation therapy available on the [facility] intranet at:[email or web address] pit[facility]_Guidelines_for_[email or web address].aspx Performed By: #### H AUF ####[id number] [id number] PLATELETSon 03-26-2018 Platelets Auto #/vol (Bld) ORDER RECD Normal [facility] Comment on above: Result Comment: If t his patient is Rh Negative and if the Plateletproduct transfused is Rh Positive, review the useof WinRho Prophylaxis for this patient. Performed By: #### P LT ####[id number] [place] [address] RENAL FUNCTION PANELon 03-26 Albumin mass conc 4.0 g/dL Normal 3.4 - 5.0 [facility] Comment on above: Performed By: #### R ENAL ####[id number] [place] [address] Anion gap 3 molar conc 16 mmol/L Normal 10 - 20 [facility] Comment on above: Performed By: #### R ENAL ####[id number] [place] [address] Calcium mass conc 9.4 mg/dL Normal 8.6 - 10.6 [facility] Comment on above: Performed By: #### R ENAL ####[id number] [place] [address] Chloride molar conc 100 mmol/L Normal 98 - 107 [facility] Comment on above: Performed By: #### R ENAL ####[id number] [place] [address] Creatinine mass conc 1.46 mg/dL High 0.50 - 1.30 [facility] Comment on above: Performed By: #### R ENAL ####[id number] [place] [address] GFR- AM. 58 mL/min/1.73m2 Abnormal >60 [facility] Comment on above: Result Comment: CALC ULATIONS OF ESTIMATED GFR ARE PERFORMED USING THE MDRD STUDY EQUATION FOR THE IDMS-TRACEABLE CREATININE METHODS. CLIN CHEM 2007;53:766-72 Performed By: #### R ENAL ####[id number] [place] [address] GFR-NON AM. 48 mL/min/1.73m2 Abnormal >60 [facility] Comment on above: Performed By: #### R ENAL ####[id number] [place] [address] Glucose mass conc 231 mg/dL High 74 - 99 [facility] Comment on above: Performed By: #### R ENAL ####[id number] [place] [address] HCO3 molar conc (Bld) 25 mmol/L Normal 21 - 32 [facility] Comment on above: Performed By: #### R ENAL ####[id number] [place] [address] Phosphate mass conc 4.2 mg/dL Normal 2.5 - 4.9 [facility] Comment on above: Result Comment: The performance characteristics of phosphorus testing in heparinized plasma have been validated by the individual laboratory site where testing is performed. Testing on heparinized plasma is not approved by the FDA; however, such approval is not necessary. Performed By: #### R ENAL ####[id number] [place] [address] Potassium molar conc 4.6 mmol/L Normal 3.5 - 5.3 [facility] Comment on above: Performed By: #### R ENAL ####[id number] [place] [address] Sodium molar conc 136 mmol/L Normal 136 - 145 [facility] Comment on above: Performed By: #### R ENAL ####[id number] [place] [address] Urea nitrogen mass conc 21 mg/dL Normal 6 - 23 [facility] Comment on above: Performed By: #### R ENAL ####[id number] [place] [address] Albumin mass conc 3.9 g/dL Normal 3.4 - 5.0 [facility] Comment on above: Performed By: #### R ENAL ####[id number] [place] [address] Anion gap 3 molar conc 16 mmol/L Normal 10 - 20 [facility] Comment on above: Performed By: #### R ENAL ####[id number] [place] [address] Calcium mass conc 9.3 mg/dL Normal 8.6 - 10.6 [facility] Comment on above: Performed By: #### R ENAL ####[id number] [place] [address] Chloride molar conc 102 mmol/L Normal 98 - 107 [facility] Comment on above: Performed By: #### R ENAL ####[id number] [place] [address] Creatinine mass conc 1.40 mg/dL High 0.50 - 1.30 [facility] Comment on above: Performed By: #### R ENAL ####[id number] [place] [address] GFR- AM. 61 mL/min/1.73m2 Normal >60 [facility] Comment on above: Result Comment: CALC ULATIONS OF ESTIMATED GFR ARE PERFORMED USING THE MDRD STUDY EQUATION FOR THE IDMS-TRACEABLE CREATININE METHODS. CLIN CHEM 2007;53:766-72 Performed By: #### R ENAL ####[id number] [place] [address] GFR-NON AM. 50 mL/min/1.73m2 Abnormal >60 [facility] Comment on above: Performed By: #### R ENAL ####[id number] [place] [address] Glucose mass conc 153 mg/dL High 74 - 99 [facility] Comment on above: Performed By: #### R ENAL ####[id number] [place] [address] HCO3 molar conc (Bld) 24 mmol/L Normal 21 - 32 [facility] Comment on above: Performed By: #### R ENAL ####[id number] [place] [address] Phosphate mass conc 4.8 mg/dL Normal 2.5 - 4.9 [facility] Comment on above: Result Comment: The performance characteristics of phosphorus testing in heparinized plasma have been validated by the individual laboratory site where testing is performed. Testing on heparinized plasma is not approved by the FDA; however, such approval is not necessary. Performed By: #### R ENAL ####[id number] [place] [address] Potassium molar conc 4.3 mmol/L Normal 3.5 - 5.3 [facility] Comment on above: Performed By: #### R ENAL ####[id number] [place] [address] Sodium molar conc 138 mmol/L Normal 136 - 145 [facility] Comment on above: Performed By: #### R ENAL ####[id number] [place] [address] Urea nitrogen mass conc 22 mg/dL Normal 6 - 23 [facility] Comment on above: Performed By: #### R ENAL ####[id number] [place] [address] REQUEST-LEUKOREDUCED RED HERI LSon 03-26-2018 REQUEST-LEUKOREDU TATUM RED CELLS ORDER RECD Normal [facility] Comment on above: Performed By: #### O [employer]UTIONS EXECUTIVE ####[id number] [place] [address] STAPH/MRSA SCREENon 03-26-20 18 STAPH/MRSA SCREEN TEST STAPH/MRSA SCRE EN WAS CANCELLED, 03/26/2018 17:39 ?Cancel Reason: Discontinued.PATIENT: DON ELKINS LOCATION: [address]#: [id number] : 50 AGE: SEX: M ORDERED BY: MONI MILLIGAN: ANTERIOR NARES COLLECTED: 03/26/18 17:39ANTIBIOTICS AT JIMENA.: RECEIVED : SITE: NARES R E S U L T S STAPH/MRSA SCREEN CANCELLED 03/26/18 17:55 Normal [facility] Comment on above: Performed By: #### S TAPH ####[id number] [place] [address] CBCon 03-25-2018 Erythrocyte distribution width Auto Ratio (RBC) 13.0 % Normal 11.5 - 14.5 [facility] Comment on above: Performed By: #### G BECKY ####[id number] [place] [address] Hematocrit Auto Volume Fraction (Bld) 38.4 % Low 41.0 - 52.0 [facility] Comment on above: Performed By: #### G BECKY ####[id number] [place] [address] Hemoglobin mass conc (Bld) 12.9 g/dL Low 13.5 - 17.5 [facility] Comment on above: Performed By: #### G BECKY ####[id number] [place] [address] MCHC Auto mass conc (RBC) 33.6 g/dL Normal 32.0 - 36.0 [facility] Comment on above: Performed By: #### G BECKY ####[id number] [place] [address] MCV Auto Entitic volume (RBC) 94 fL Normal 80 - 100 [facility] Comment on above: Performed By: #### G BECKY ####[id number] [place] [address] Nucleated RBC/100 WBC Ratio (Bld) 0.0 /100 WBC Normal 0.0-0.0 [facility] Comment on above: Performed By: #### G BECKY ####[id number] [place] [address] Platelets Auto #/vol (Bld) 219 10*3/uL Normal 150 - 450 [facility] Comment on above: Performed By: #### G BECKY ####[id number] [place] [address] RBC Auto #/vol (Bld) 4.10 x10E12/L Low 4.50 - 5.90 [facility] Comment on above: Performed By: #### G BECKY ####[id number] [place] [address] WBC Auto #/vol (Bld) 8.2 10*3/uL Normal 4.4 - 11.3 [facility] Comment on above: Performed By: #### G BECKY ####[id number] [place] [address] Daily Progress Note-Yann chavez 03-25-2018 Protein mass conc Service: Cardiology Subjective Data:DON ELKINS is a 67 year old Male who is Hospital Day # 8. Additional Information:BP remains of 130s-150s/60-80s, BS improved to 160s this AM - c/w Heparin gtt- c/w Lantus 25 units daily and Lispro 6 units before meals- Plan for CABG next week Objective Data: Objective Information:T UCUOTrO5Kvvcr40.11627374/8497% Date/Time03/25 8: 8: 8: 8: 8:13Range(35.8C - 36.8C ) (68 - 86 ) (16 - 18 ) (128 - 166 )/ (80 - 85 ) (96%- 98% ) Pain with Activity reported at 03/25 0:10: 0Pain at Rest reported at 03/25 0:10: 0 Ujtmmwt08/7 3:46: Weight in kg (Weight (kg)) 107.911 3:46: Weight in lbs ((lbs)) 237.8 Physical Exam: Constitutional: Resting in bed, NADHead/Neck: No JVDRespiratory/Thorax: CTABCardiovascular: RRR, S1 Z5Nuyetrgnmyvjrwbg: soft, NT/NDExtremities: No edemaNeurological: alert and oriented l7Uiplvpkcbnuze: Appropriate mood and behaviorSkin: psoriasis plaque over [...] Bolus) Injectable: 4000 unit(s) IntraVenous Push Every 4Ecsdm3. Hydrocortisone: 10 mg Oral 9. Hydrocortisone: 5 mg Oral 10. Hydrocortisone: 2.5 mg Oral 11. Insulin Glargine (Lantus) Injectable: 25 unit(s) SubCutaneous Every 16Fatyq89. Insulin Lispro (HumaLOG) Injectable: 6 unit(s) SubCutaneous 3 Times aDay Before Meals13. Insulin Lispro Mild Corrective Scale: unit(s) SubCutaneous 3 Times a DayBefore Meals14. Levothyroxine: 150 microgram(s) Oral Daily15. Pantoprazole: 40 mg Oral Daily16. Polyethylene Glycol: 17 gram(s) Oral Daily17. rOPINIRole: 6 mg Oral 18. Sodium Chloride 0.65% Nasal [place]: 2 spray(s) Each Nostril 2 Times aDay PRN Medications -- 1. Dextrose 50% in Water Injectable: 25 gram(s) IntraVenous Push Every 37Ihbtzhs5. Glucagon Injectable: 1 mg IntraMuscular Every 15 Minutes Currently Suspended Medications -- 1. Chlorhexidine Gluconate 4% Topical: 1 application(s) Topical Once Recent Lab Results: Results: I have reviewed these laboratory results: Glucose_POCT Trending View Kfytjv04-Fki-4848 11:19:00 25-Mar-2018 07:47:00Glucose-WTXO437 H 163 H Heparin assay, UFH 25-Mar-2018 [...] T2DM, Addisson's, GERD, prostate ca s/p prostatectomy [id number], hypothyroidism, psoriasis, and most recently diagnosed with a PE andmultivessel CAD transferred to medicine at [facility] from [facility] on03/18 for CABG eval. 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 Electronic Signatures:Vito Patino (SENIOR SYSTEMS ENGINEER-SURGICAL SUPERVISOR) (Signed 25-Mar-2018 16:22)Authored: Service, Subjective Data, Objective Data, Assessment and Plan,Signature/Cosignature/Att estationLeonel Arteaga) (Signed 26-Mar-2018 11:18)Authored: Signature/Cosignature/Attestat ionCo-Signer: Subjective Data, Objective Data, Assessment and Plan,Signature/Cosignature/Att estation Last Updated: 26-Mar-2018 11:18 by Leonel Arteaga) Normal [facility] Daily Progress Note-Endocrin ologyon 03-25-2018 Protein mass conc Consult Type: subseq uent visit/care Service: Endocrinology Subjective Data:DON ELKINS is a 67 year old Male who is Hospital Day # 8. Objective Data: Objective Information:T ZAVHHdS6Wgrmb98.87194722/7997% Date/Time03/25 16: 16: 16: 16: 16:00Range(35.8C - 36.2C ) (68 - 78 ) (17 - 18 ) (128 - 166 )/ (79 - 86 ) (96%- 97% ) Pain with Activity reported at 03/25 8:00: 0Pain at Rest reported at 03/25 8:00: 0 Abcesjt62/7 3:46: Weight in kg (Weight (kg)) 107.911/7 [...] reviewed these laboratory results: Glucose_POCT Trending View Jqnykp41-Cxn-8713 12:46:00 24-Mar-2018 11:46:00 24-Mar-2018 06:54:00 23-Mar-2018 20:50:00 23-Mar-2018 15:44:00 23-Mar-2018 11:37:00 70-Zgg-397636:37:00 22-Mar-2018 21:18:00Glucose-VFBB601 H 262 H 217 H 290 H 228 H 226 H 189H 275 H Basic Metabolic Panel 24-Mar-2018 03:30:00 ResultValueGlucose, Serum 358 HNA 134 LK 4.2CL 103Bicarbonate, Serum 21Anion Gap, Serum 14BUN 26 HCREAT 1.24GFR-Non 58 AGFR- 70Calcium, Serum 9.1 Renal Function Panel Trending View Chlmny18-Mnj-2730 20:34:00 22-Mar-2018 19:24:00Glucose, Qrhra402 H 226 KPM733 138K4.2 4.6WC316 102Bicarbonate, Serum24 25Anion Gap, Serum14 08ZZH16 24 HCREAT1.23 1.53 HGFR-Non Rflfvwiy76 A 46 AGFR- Zresccad46 56 ACalcium, Serum9.2 9.0Phosphorus, Serum3.9 4.0ALB3.7 3.7 Assessment and Plan:Assessment: Mr. Elkins is a 67 yo WM with no known history of CAD, who has a past medicalhistory of HTN, HLD, T2DM, Shasta's disease, hypothyroidism, COPD, AKASH onCPAP, prostate ca s/p prostatectomy in 2011, and psoriasis who was transferredto HHVI service at [facility] from [facility] on 03/18 forCABG marshall.Endocrine consulted fr evaluation of Shasta disease and treatment periop Patient was on supra-therapeutic dose of HCT 20-0-20 , fludrocortisone 0.1 ,mgdailyPatient has uncontrolled HTN and uncontrolled BSMost likely tomorrow (03/23) IVC filter placement Recommendations:1. Brigida's Disease-- Fludrocortisone 0.05 mg 4 times weekly ( and friday)-- Continue Hydrocortisone to 10-5-2.5 mg at 7hj-09ht-0ah DAILY as of tomorrow -On the day [...] protocol--Diabetic diet--will follow Please page with questions [phone] Patient seen and examined, plan discussed with [...] patient (as noted in the above attestation) [id number] Electronic Signatures:Starr Quevedo) (Signed 28-Mar-2018 09:06)Authored: Signature/Cosignature/Attestat ionCo-Signer: Service, Subjective Data, Objective Data, Assessment and Plan,Signature/Cosignature/Att Hasmukh Gabriel (Resident)) (Signed 25-Mar-2018 19:27)Authored: Service, Subjective Data, Objective Data, Assessment and Plan,Signature/Cosignature/Att estation Last Updated: 28-Mar-2018 09:06 by Starr Quevedo) Normal [facility] GLUCOSE-POCTon 03-25-2018 Glucose mass conc 181 mg/dL High 74 - 99 [facility] Comment on above: Performed By: #### G BECKY ####[id number] [place] [address] Glucose mass conc 306 mg/dL High 74 - 99 [facility] Comment on above: Performed By: #### G BECKY ####[id number] [place] [address] Glucose mass conc 291 mg/dL High 74 - 99 [facility] Comment on above: Performed By: #### G BCEKY ####[id number] [place] [address] Glucose mass conc 163 mg/dL High 74 - 99 [facility] Comment on above: Performed By: #### G BECKY ####[id number] [place] [address] HEPARIN ASSAY,UFHon 03-25-20 18 HEPARIN ASSAY,UFH 0.4 IU/mL Normal [facility] Comment on above: Result Comment: The therapeutic reference range for UFH may be either 0.3-0.6 IU/mL or 0.3-0.7 IU/mL based on the clinical setting for anticoagulant therapy and the associated nomogram used. For heparin dosing guidelines based on clinical scenario and Heparin Assay results, please refer to local Pharmacy and the [facility] Guidelines for Anticoagulation therapy available on the [facility] intranet at:[email or web address]_Guidelines_for_[email or web address] Performed By: #### G BECKY ####[id number] [place] [address] RENAL FUNCTION PANELon 03-25 Albumin mass conc 3.8 g/dL Normal 3.4 - 5.0 [facility] Comment on above: Performed By: #### G BECKY ####[id number] [place] [address] Anion gap 3 molar conc 12 mmol/L Normal 10 - 20 [facility] Comment on above: Performed By: #### G BECKY ####[id number] [place] [address] Calcium mass conc 9.3 mg/dL Normal 8.6 - 10.6 [facility] Comment on above: Performed By: #### G BECKY ####[id number] [place] [address] Chloride molar conc 103 mmol/L Normal 98 - 107 [facility] Comment on above: Performed By: #### G BECKY ####[id number] [place] [address] Creatinine mass conc 1.52 mg/dL High 0.50 - 1.30 [facility] Comment on above: Performed By: #### G BECKY ####[id number] [place] [address] GFR- AM. 56 mL/min/1.73m2 Abnormal >60 [facility] Comment on above: Result Comment: CALC ULATIONS OF ESTIMATED GFR ARE PERFORMED USING THE MDRD STUDY EQUATION FOR THE IDMS-TRACEABLE CREATININE METHODS. CLIN CHEM 2007;53:766-72 Performed By: #### G BECKY ####[id number] [place] [address] GFR-NON AM. 46 mL/min/1.73m2 Abnormal >60 [facility] Comment on above: Performed By: #### G BECKY ####[id number] [place] [address] Glucose mass conc 246 mg/dL High 74 - 99 [facility] Comment on above: Performed By: #### G BECKY ####[id number] [place] [address] HCO3 molar conc (Bld) 27 mmol/L Normal 21 - 32 [facility] Comment on above: Performed By: #### G BECKY ####[id number] [place] [address] Phosphate mass conc 4.4 mg/dL Normal 2.5 - 4.9 [facility] Comment on above: Result Comment: The performance characteristics of phosphorus testing in heparinized plasma have been validated by the individual laboratory site where testing is performed. Testing on heparinized plasma is not approved by the FDA; however, such approval is not necessary. Performed By: #### G BECKY ####[id number] [place] [address] Potassium molar conc 4.4 mmol/L Normal 3.5 - 5.3 [facility] Comment on above: Performed By: #### G BECKY ####[id number] [place] [address] Sodium molar conc 138 mmol/L Normal 136 - 145 [facility] Comment on above: Performed By: #### G BECKY ####[id number] [place] [address] Urea nitrogen mass conc 26 mg/dL High 6 - 23 [facility] Comment on above: Performed By: #### G BECKY ####[id number] [place] [address] BASIC METABOLIC PANELon 11-0 Anion gap 3 molar conc 14 mmol/L Normal 10 - 20 [facility] Comment on above: Performed By: #### B MP ####[id number] [place] [address] Calcium mass conc 9.1 mg/dL Normal 8.6 - 10.6 [facility] Comment on above: Performed By: #### B MP ####[id number] [place] [address] Chloride molar conc 103 mmol/L Normal 98 - 107 [facility] Comment on above: Performed By: #### B MP ####[id number] [place] [address] Creatinine mass conc 1.24 mg/dL Normal 0.50 - 1.30 [facility] Comment on above: Performed By: #### B MP ####[id number] [place] [address] GFR- AM. 70 mL/min/1.73m2 Normal >60 [facility] Comment on above: Result Comment: CALC ULATIONS OF ESTIMATED GFR ARE PERFORMED USING THE MDRD STUDY EQUATION FOR THE IDMS-TRACEABLE CREATININE METHODS. CLIN CHEM 2007;53:766-72 Performed By: #### B MP ####[id number] [place] [address] GFR-NON AM. 58 mL/min/1.73m2 Abnormal >60 [facility] Comment on above: Performed By: #### B MP ####[id number] [place] [address] Glucose mass conc 358 mg/dL High 74 - 99 [facility] Comment on above: Performed By: #### B MP ####[id number] [place] [address] HCO3 molar conc (Bld) 21 mmol/L Normal 21 - 32 [facility] Comment on above: Performed By: #### B MP ####[id number] [place] [address] Potassium molar conc 4.2 mmol/L Normal 3.5 - 5.3 [facility] Comment on above: Performed By: #### B MP ####[id number] [place] [address] Sodium molar conc 134 mmol/L Low 136 - 145 [facility] Comment on above: Performed By: #### B MP ####[id number] [place] [address] Urea nitrogen mass conc 26 mg/dL High 6 - 23 [facility] Comment on above: Performed By: #### B MP ####[id number] [place] [address] CBCon 03-24-2018 Erythrocyte distribution width Auto Ratio (RBC) 12.9 % Normal 11.5 - 14.5 [facility] Comment on above: Performed By: #### C BC ####[id number] [place] [address] Hematocrit Auto Volume Fraction (Bld) 40.0 % Low 41.0 - 52.0 [facility] Comment on above: Performed By: #### C BC ####[id number] [place] [address] Hemoglobin mass conc (Bld) 13.4 g/dL Low 13.5 - 17.5 [facility] Comment on above: Performed By: #### C BC ####[id number] [place] [address] MCHC Auto mass conc (RBC) 33.5 g/dL Normal 32.0 - 36.0 [facility] Comment on above: Performed By: #### C BC ####[id number] [place] [address] MCV Auto Entitic volume (RBC) 92 fL Normal 80 - 100 [facility] Comment on above: Performed By: #### C BC ####[id number] [place] [address] Nucleated RBC/100 WBC Ratio (Bld) 0.0 /100 WBC Normal 0.0-0.0 [facility] Comment on above: Performed By: #### C BC ####[id number] [place] [address] Platelets Auto #/vol (Bld) 216 10*3/uL Normal 150 - 450 [facility] Comment on above: Performed By: #### C BC ####[id number] [place] [address] RBC Auto #/vol (Bld) 4.33 x10E12/L Low 4.50 - 5.90 [facility] Comment on above: Performed By: #### C BC ####[id number] [place] [address] WBC Auto #/vol (Bld) 7.6 10*3/uL Normal 4.4 - 11.3 [facility] Comment on above: Performed By: #### C BC ####[id number] [place] [address] Erythrocyte distribution width Auto Ratio (RBC) 12.9 % Normal 11.5 - 14.5 [facility] Comment on above: Performed By: #### C BC ####[id number] [place] [address] Hematocrit Auto Volume Fraction (Bld) 39.8 % Low 41.0 - 52.0 [facility] Comment on above: Performed By: #### C BC ####[id number] [place] [address] Hemoglobin mass conc (Bld) 13.6 g/dL Normal 13.5 - 17.5 [facility] Comment on above: Performed By: #### C BC ####[id number] [place] [address] MCHC Auto mass conc (RBC) 34.2 g/dL Normal 32.0 - 36.0 [facility] Comment on above: Performed By: #### C BC ####[id number] [place] [address] MCV Auto Entitic volume (RBC) 92 fL Normal 80 - 100 [facility] Comment on above: Performed By: #### C BC ####[id number] [place] [address] Nucleated RBC/100 WBC Ratio (Bld) 0.0 /100 WBC Normal 0.0-0.0 [facility] Comment on above: Performed By: #### C BC ####[id number] [place] [address] Platelets Auto #/vol (Bld) 216 10*3/uL Normal 150 - 450 [facility] Comment on above: Performed By: #### C BC ####[id number] [place] [address] RBC Auto #/vol (Bld) 4.34 x10E12/L Low 4.50 - 5.90 [facility] Comment on above: Performed By: #### C BC ####[id number] [place] [address] WBC Auto #/vol (Bld) 7.5 10*3/uL Normal 4.4 - 11.3 [facility] Comment on above: Performed By: #### C BC ####[id number] [place] [address] Daily Progress Note-Yann chavez 03-24-2018 Protein mass conc Service: Cardiology Subjective Data:DON ELKINS is a 67 year old Male who is Hospital Day # 7. Additional Information:s/p IVC Filter placement yesterday, SBP improved to 130s-150s/60-80s, BSremain elevated 200s - c/w Heparin gtt- Increase Lantus to 25 units- Add Lispro 6 units before meals- Plan for CABG next week Objective Data: Objective Information:T [id number]/8496% Date/Time03/24 7: 7: 7: 8: 7:44Range(35.6C - 37C ) (67 - 85 ) (18 - 22 ) (122 - 158 )/ (68 - 84 ) (93% -96% )Highest temp of 37 C was recorded at 03/23 11:00 Pain with Activity reported at 03/24 3:34: 0Pain at Rest reported at 03/24 3:34: 0 Wsvzqhz36/6 3:33: Weight in kg (Weight (kg)) 108. 3:33: Weight in lbs ((lbs)) 238.8 Physical Exam: Constitutional: Resting in bed, NADHead/Neck: No JVDRespiratory/Thorax: CTABCardiovascular: RRR, S1 I8Znkllsvkhbriogyd: soft, NT/NDExtremities: No edemaNeurological: alert and oriented g4Zeddnetfthcab: Appropriate mood and behaviorSkin: psoriasis plaque over [...] Bolus) Injectable: 4000 unit(s) IntraVenous Push Every 6Mfsck8. Hydrocortisone: 10 mg Oral 9. Hydrocortisone: 5 mg Oral 10. Hydrocortisone: 2.5 mg Oral 11. Insulin Glargine (Lantus) Injectable: 20 unit(s) SubCutaneous Every 40Wpejb82. Insulin Lispro Mild Corrective Scale: unit(s) SubCutaneous 3 Times a DayBefore Meals13. Levothyroxine: 150 microgram(s) Oral Daily14. Pantoprazole: 40 mg Oral Daily15. Polyethylene Glycol: 17 gram(s) Oral Daily16. rOPINIRole: 6 mg Oral 17. Sodium Chloride 0.65% Nasal [place]: 2 spray(s) Each Nostril 2 Times aDay PRN Medications -- 1. Dextrose 50% in Water Injectable: 25 gram(s) IntraVenous Push Every 81Zusloec6. Glucagon Injectable: 1 mg IntraMuscular Every 15 Minutes Currently Suspended Medications -- 1. Chlorhexidine Gluconate 4% Topical: 1 application(s) Topical Once Recent Lab Results: Results: I have reviewed these laboratory results: Glucose_POCT Trending View Hdmfdt42-Jmg-7954 06:54:00 23-Mar-2018 20:50:00Glucose-FFZF020 H 290 H Complete Blood Count Trending View Ppeciq07-Wlq-0614 03:30:00 23-Mar-2018 20:34:00White Blood Cell Count7.6 7.5Nucleated Erythrocyte Count0.0 0.0Red Blood Cell Count4.33 L 4.34 LHGB13.4 L 13.6HCT40.0 L 39.8 LMCV92 81FYXM69.5 34.2QRT547 216RDW-CV12.9 12.9 Basic Metabolic Panel 24-Mar-2018 03:30:00 ResultValueGlucose, Serum 358 HNA 134 LK 4.2CL 103Bicarbonate, Serum 21Anion Gap, Serum 14BUN 26 HCREAT 1.24GFR-Non 58 AGFR- 70Calcium, Serum 9.1 Heparin assay, UFH Trending View Watvjj76-Zni-3063 03:30:00 23-Mar-2018 23:27:00Heparin assay, UFH0.4 0.3 Renal [...] T2DM, Addisson's, GERD, prostate ca s/p prostatectomy [id number], hypothyroidism, psoriasis, and most recently diagnosed with a PE andmultivessel CAD transferred to medicine at [facility] from [facility] for CABG eval. 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 Electronic Signatures:Vito Patino (SENIOR SYSTEMS ENGINEER-SURGICAL SUPERVISOR) (Signed 24-Mar-2018 09:27)Authored: Service, Subjective Data, Objective Data, Assessment and Plan,Signature/Cosignature/Att Leonel Chilel) (Signed 26-Mar-2018 11:20)Authored: Signature/Cosignature/Attestat ionCo-Signer: Service, Subjective Data, Objective Data, Assessment and Plan,Signature/Cosignature/Att estation Last Updated: 26-Mar-2018 11:20 by Leonel Arteaga) Normal [facility] Daily Progress Note-Endocrin yarelyyon 03-24-2018 Protein mass conc Consult Type: subseq uent visit/care Service: Endocrinology Subjective Data:DON ELKINS is a 67 year old Male who is Hospital Day # 7. BS above range. Objective Data: Objective Information:T HQOKStF6Mknht99.93285174/8397% Date/Time03/24 12: 12: 12: 12: 12:41Range(35.6C - [...] Bolus) Injectable: 4000 unit(s) IntraVenous Push Every 7Mohob7. Hydrocortisone: 10 mg Oral 9. Hydrocortisone: 5 mg Oral 10. Hydrocortisone: 2.5 mg Oral 11. Insulin Glargine (Lantus) Injectable: 25 unit(s) SubCutaneous Every 59Ruykw28. Insulin Lispro (HumaLOG) Injectable: 6 unit(s) SubCutaneous 3 Times aDay Before Meals13. Insulin Lispro Mild Corrective Scale: unit(s) SubCutaneous 3 Times a DayBefore Meals14. Levothyroxine: 150 microgram(s) Oral Daily15. Pantoprazole: 40 mg Oral Daily16. Polyethylene Glycol: 17 gram(s) Oral Daily17. rOPINIRole: 6 mg Oral 18. Sodium Chloride 0.65% Nasal [place]: 2 spray(s) Each Nostril 2 Times aDay PRN Medications -- 1. Dextrose 50% in Water Injectable: 25 gram(s) IntraVenous Push Every 90Ozqpssy5. Glucagon Injectable: 1 mg IntraMuscular Every 15 Minutes Currently Suspended Medications -- 1. Chlorhexidine Gluconate 4% Topical: 1 application(s) Topical Once Recent Lab Results: Results: I have reviewed these laboratory results: Glucose_POCT Trending View Zdufwr00-Ukp-1860 12:46:00 24-Mar-2018 11:46:00 24-Mar-2018 06:54:00 23-Mar-2018 20:50:00 23-Mar-2018 15:44:00 23-Mar-2018 11:37:00 34-Igx-115598:37:00 22-Mar-2018 21:18:00Glucose-RASG703 H 262 H 217 H 290 H 228 H 226 H 189H 275 H Basic Metabolic Panel 24-Mar-2018 03:30:00 ResultValueGlucose, Serum 358 HNA 134 LK 4.2CL 103Bicarbonate, Serum 21Anion Gap, Serum 14BUN 26 HCREAT 1.24GFR-Non 58 AGFR- 70Calcium, Serum 9.1 Renal Function Panel Trending View Titais57-Gxj-7987 20:34:00 22-Mar-2018 19:24:00Glucose, Inimj146 H 226 UEB768 138K4.2 4.2DP962 102Bicarbonate, Serum24 25Anion Gap, Serum14 58GFL09 24 HCREAT1.23 1.53 HGFR-Non Agcosjgm91 A 46 AGFR- Edewwifv61 56 ACalcium, Serum9.2 9.0Phosphorus, Serum3.9 4.0ALB3.7 3.7 Assessment and Plan:Assessment: Mr. 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 mg 4 times weekly ( and friday)-- Continue Hydrocortisone to 10-5-2.5 mg at 5jt-21zj-0eu DAILY as of tomorrow -On the day [...] protocol--Diabetic diet--will follow Please page with questions [phone] Patient seen and examined, plan discussed with [...] patient (as noted in the above attestation) [id number] Electronic Signatures:Starr Quevedo) (Signed 28-Mar-2018 09:05)Authored: Signature/Cosignature/Attestat ionCo-Signer: Service, Subjective Data, Objective Data, Assessment and PlanHasmukh Stephenson (Resident)) (Signed 24-Mar-2018 13:56)Authored: Service, Subjective Data, Objective Data, Assessment and Plan Last Updated: 28-Mar-2018 09:05 by Starr Quevedo) Normal [facility] GLUCOSE-POCTon 03-24-2018 Glucose mass conc 240 mg/dL High 74 - 99 [facility] Comment on above: Performed By: #### G BECKY ####[id number] [place] [address] Glucose mass conc 312 mg/dL High 74 - 99 [facility] Comment on above: Performed By: #### G BECKY ####[id number] [place] [address] Glucose mass conc 242 mg/dL High 74 - 99 [facility] Comment on above: Performed By: #### G BECKY ####[id number] [place] [address] Glucose mass conc 262 mg/dL High 74 - 99 [facility] Comment on above: Performed By: #### G BECKY ####[id number] [place] [address] Glucose mass conc 217 mg/dL High 74 - 99 [facility] Comment on above: Performed By: #### G BECKY ####[id number] [place] [address] HEPARIN ASSAY,UFHon 03-24-20 18 HEPARIN ASSAY,UFH 0.4 IU/mL Normal [facility] Comment on above: Result Comment: The therapeutic reference range for UFH may be either 0.3-0.6 IU/mL or 0.3-0.7 IU/mL based on the clinical setting for anticoagulant therapy and the associated nomogram used. For heparin dosing guidelines based on clinical scenario and Heparin Assay results, please refer to local Pharmacy and the [facility] Guidelines for Anticoagulation therapy available on the [facility] intranet at:[email or web address]_Guidelines_[email or web address].aspx Performed By: #### H AUF ####[id number] [place] [address] HEPARIN ASSAY,UFH 0.3 IU/mL Normal [facility] Comment on above: Result Comment: The therapeutic reference range for UFH may be either 0.3-0.6 IU/mL or 0.3-0.7 IU/mL based on the clinical setting for anticoagulant therapy and the associated nomogram used. For heparin dosing guidelines based on clinical scenario and Heparin Assay results, please refer to local Pharmacy and [facility] Guidelines for Anticoagulation therapy available on the [facility] intranet at:[email or web address]_Guidelines_[email or web address].aspx Performed By: #### H AUF ####[id number] [id number] RENAL FUNCTION PANELon 03-24 Albumin mass conc 3.7 g/dL Normal 3.4 - 5.0 [facility] Comment on above: Performed By: #### R ENAL ####[id number] [id number] Anion gap 3 molar conc 14 mmol/L Normal 10 - 20 [facility] Comment on above: Performed By: #### R ENAL ####[id number] [id number] Calcium mass conc 9.2 mg/dL Normal 8.6 - 10.6 [facility] Comment on above: Performed By: #### R ENAL ####[id number] [id number] Chloride molar conc 102 mmol/L Normal 98 - 107 [facility] Comment on above: Performed By: #### R ENAL ####[id number] [place] [address] Creatinine mass conc 1.23 mg/dL Normal 0.50 - 1.30 [facility] Comment on above: Performed By: #### R ENAL ####[id number] [place] [address] GFR- AM. 71 mL/min/1.73m2 Normal >60 [facility] Comment on above: Result Comment: CALC ULATIONS OF ESTIMATED GFR ARE PERFORMED USING THE MDRD STUDY EQUATION FOR THE IDMS-TRACEABLE CREATININE METHODS. CLIN CHEM 2007;53:766-72 Performed By: #### R ENAL ####[id number] [place] [address] GFR-NON AM. 59 mL/min/1.73m2 Abnormal >60 [facility] Comment on above: Performed By: #### R ENAL ####[id number] [place] [address] Glucose mass conc 271 mg/dL High 74 - 99 [facility] Comment on above: Performed By: #### R ENAL ####[id number] [place] [address] HCO3 molar conc (Bld) 24 mmol/L Normal 21 - 32 [facility] Comment on above: Performed By: #### R ENAL ####[id number] [place] [address] Phosphate mass conc 3.9 mg/dL Normal 2.5 - 4.9 [facility] Comment on above: Result Comment: The performance characteristics of phosphorus testing in heparinized plasma have been validated by the individual laboratory site where testing is performed. Testing on heparinized plasma is not approved by the FDA; however, such approval is not necessary. Performed By: #### R ENAL ####[id number] [place] [address] Potassium molar conc 4.2 mmol/L Normal 3.5 - 5.3 [facility] Comment on above: Performed By: #### R ENAL ####[id number] [place] [address] Sodium molar conc 136 mmol/L Normal 136 - 145 [facility] Comment on above: Performed By: #### R ENAL ####[id number] [place] [address] Urea nitrogen mass conc 21 mg/dL Normal 6 - 23 [facility] Comment on above: Performed By: #### R ENAL ####[id number] [place] [address] ABO/RH GROUP TESTon 03-23-20 18 ABO TYPE A Normal [facility] Comment on above: Performed By: #### T SH2 ####[id number] [place] [address] RH TYPE Positive Normal [facility] Comment on above: Performed By: #### T SH2 ####[id number] [id number] BENZODIAZEPINES CONF,URINEon 03-23-2018 7-AMINOCLONAZEPAM <5 Normal [facility] Comment on above: Performed By: #### B ENCN ####[facility] [id number] Count includes the [facility] [place] [address] ALPHA-HYDROXYALPR AZOLAM <5 Normal [facility] Comment on above: Performed By: #### B ENCN ####[facility] Count includes the [facility] [place] [address] ALPHA-HYRDOXYMIDA ZOLAM 36 ng/mL Normal [facility] Comment on above: Result Comment: Mida zolam metabolite: consistent with use of a drug containingmidazolam, such as Versed.Performed by [facility],[address] [facility] [place] [address] tab.[employer], Esteban Carbajal MD - Lab. Director Performed By: #### B ENCN ####[facility] [id number] Count includes the [facility] [place] [address] ALPRAZOLAM <5 Normal [facility] Comment on above: Performed By: #### B ENCN ####[facility] Count includes the [facility] [place] [address] CHLORDIAZEPOXIDE <20 Normal [facility] Comment on above: Performed By: #### B ENCN ####[facility] [address] [place] [address] CLONAZEPAM <5 Normal [facility] Comment on above: Performed By: #### B ENCN ####[facility] [address] [place] [address] DIAZEPAM <20 Normal [facility] Comment on above: Result Comment: INTE RPRETIVE [...] the laboratory.Test developed and characteristics determined by [facility]. See Compliance Statement B: [employer]/CS Performed By: #### B ENCN ####[facility] [address] [place] [address] LORAZEPAM <20 Normal [facility] Comment on above: Performed By: #### B ENCN ####[facility] [address] [place] [address] MIDAZOLAM <20 Normal [facility] Comment on above: Performed By: #### B ENCN ####[facility] [address] [place] [address] NORDIAZEPAM <20 Normal [facility] Comment on above: Performed By: #### B ENCN ####[facility] [address] [place] [address] OXAZEPAM <20 Normal [facility] Comment on above: Performed By: #### B ENCN ####[facility] [address] [place] [address] TEMAZEPAM <20 Normal [facility] Comment on above: Performed By: #### B ENCN ####[facility] [address] [place] [address] Daily Progress Note-Cardiosandra chavez 03-23-2018 Protein mass conc Service: Cardiology Subjective Data:DON ELKINS is a 67 year old Male who is Hospital Day # 6. Additional Information:s/p IVC Filter placement today, SBP remains elevated 150-160s, BS remainelevated 2-300s - restart Heparin gtt this evening- Plan for CABG next week Objective Data: Objective Information:T PVOCPbT7Jteil436938139/7593%Da te/Time03/23 11: 11::: 11:00Range(35.8C - 37C ) (69 - 78 ) (17 - 20 ) (121 - 168 )/ (73 - 91 ) (93% -97% )Highest temp of 37 C was recorded at 03/23 11:00 Pain with Activity reported at 03/23 11:00: 0Pain at Rest reported at 03/23 11:00: 0 Aglvyhu60/5 3:51: Weight in kg (Weight (kg)) 108.811 3:51: Weight in lbs ((lbs)) 239.8 Physical Exam: Constitutional: Resting in bed, NADHead/Neck: No JVDRespiratory/Thorax: CTABCardiovascular: RRR, S1 Y4Etrawknyqdvgbdcz: soft, NT/NDExtremities: No edemaNeurological: alert and oriented r7Ssjpoquhtfthn: Appropriate mood and behaviorSkin: psoriasis plaque over [...] Bolus) Injectable: 4000 unit(s) IntraVenous Push Every 8Ttllb4. Hydrocortisone: 5 mg Oral 9. Insulin Lispro Mild Corrective Scale: unit(s) SubCutaneous 3 Times a DayBefore Meals10. Levothyroxine: 150 microgram(s) Oral Daily11. Mupirocin 2%: 0.5 application(s) Each Nostril 2 Times a Day12. Pantoprazole: 40 mg Oral Daily13. Polyethylene Glycol: 17 gram(s) Oral Daily14. rOPINIRole: 2 mg Oral 3 Times a Day15. Sodium Chloride 0.65% Nasal [place]: 2 spray(s) Each Nostril 2 Times aDay PRN Medications -- 1. Dextrose 50% in Water Injectable: 25 gram(s) IntraVenous Push Every 50Vmhwywq9. Glucagon Injectable: 1 mg IntraMuscular Every 15 Minutes Currently Suspended Medications -- 1. Chlorhexidine Gluconate 4% Topical: 1 application(s) Topical Once2. Heparin 25,000 units/ D5W 250 mL Infusion: 1000 units/hr IntraVenous 3. Hydrocortisone: 10 mg Oral 4. Hydrocortisone: 5 mg Oral 5. Hydrocortisone: 2.5 mg Oral Recent Lab Results: Results: I have reviewed these laboratory results: Glucose_POCT Trending View Rdrawb28-Vwq-[id number] 11:37:00 23-Mar-2018 07:37:00 22-Mar-2018 21:18:00Glucose-WZNX551 H 189 H 275 H Heparin assay, UFH Trending View Medzwq41-Bbw-1836 02:02:00 22-Mar-2018 19:24:00Heparin assay, UFH0.4 0.2 Complete [...] T2DM, Addisson's, GERD, prostate ca s/p prostatectomy [id number], hypothyroidism, psoriasis, and most recently diagnosed with a PE andmultivessel CAD transferred to medicine at [facility] from [facility] for CABG eval. 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 Electronic Signatures:Vito Patino (SENIOR SYSTEMS ENGINEER-SURGICAL SUPERVISOR) (Signed 23-Mar-2018 15:52)Authored: Service, Subjective Data, Objective Data, Assessment and Plan,Signature/Cosignature/Att estationLeonel Arteaga) (Signed 26-Mar-2018 11:14)Authored: Signature/Cosignature/Attestat ionCo-Signer: Service, Subjective Data, Objective Data, Assessment and Plan,Signature/Cosignature/Att estation Last Updated: 26-Mar-2018 11:14 by Leonel Arteaga) Normal [facility] Daily Progress Note-Endocrin cherie 03-23-2018 Protein mass conc Service: Endocrinolo gy Subjective Data:DON ELKINS is a 67 year old Male who is Hospital Day # 6. Post IVF procedure today received HCt 30 mg once in ama d 10 mg IVat noon whilein the OR, HDS. Objective Data: Objective Information:T [id number]/7593%Da te/Time03/23 11: 11: 11:: 11:00Range(35.8C - 37C [...] a past medicalhistory of HTN, HLD, T2DM, Shasta's disease, hypothyroidism, COPD, AKASH onCPAP, prostate ca s/p prostatectomy in 2011, and psoriasis who was transferredto HHVI service at [facility] from [facility] on 03/18 forAKBG marshall.Endocrine consulted fr 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 Shasta's Disease-- Fludrocortisone to 0.05 mg 4 times weekly ( and friday)-- Give HCt 5mg today at 5 pm then resume as below tomorrow-- Continue Hydrocortisone to 10-5-2.5 mg at 0yo-01ld-0dw DAILY as of tomorrow -On the day [...] protocol--Diabetic diet--will follow Please page with questions [phone] Patient seen and examined, plan discussed with [...] patient (as noted in the above attestation) [id number] Electronic Signatures:Starr Quevedo) (Signed 28-Mar-2018 09:04)Authored: Signature/Cosignature/Attestat ionCo-Signer: Service, Subjective Data, Objective Data, Assessment and Plan,Signature/Cosignature/Att estationHasmukh Stephenson (Resident)) (Signed 23-Mar-2018 15:54)Authored: Service, Subjective Data, Objective Data, Assessment and Plan,Signature/Cosignature/Att estation Last Updated: 28-Mar-2018 09:04 by Starr Quevedo) Normal [facility] Daily Progress Note-Pulmonol ogyon 03-23-2018 Daily Progress [...] on ambient air. Objective Data: Objective Information:T [id number]/[id number]%Da te/Time03/23 11: 15: 11: 15: 11:00Range(35.8C - [...] medicine will sign offPlease page with questions [phone] Signature/Cosignature/Attestat ion:Attending AttestationI saw and evaluated the [...] patient (as noted in the above attestation) [id number] Electronic Signatures:Angie Fuentes) (Signed 23-Mar-2018 18:13)Authored: Service, Signature/Cosignature/Attestat ionCo-Signer: Service, Subjective Data, Objective Data, Assessment and Plan,Signature/Cosignature/Att estationPrincess Garnica (Fellow)) (Signed 23-Mar-2018 16:18)Authored: Service, Subjective Data, Objective Data, Assessment and Plan,Signature/Cosignature/Att estation Last Updated: 23-Mar-2018 18:13 by Angie Fuentes) Normal [facility] GLUCOSE-POCTon 03-23-2018 Glucose mass conc 290 mg/dL High 74 - 99 [facility] Comment on above: Performed By: #### G BECKY ####[id number] [place] [address] Glucose mass conc 228 mg/dL High 74 - 99 [facility] Comment on above: Performed By: #### T SH2 ####[id number] [place] [address] Glucose mass conc 226 mg/dL High 74 - 99 [facility] Comment on above: Performed By: #### T SH2 ####[id number] [place] [address] Glucose mass conc 189 mg/dL High 74 - 99 [facility] Comment on above: Performed By: #### T SH2 ####[id number] [place] [address] HEPARIN ASSAY,UFHon 03-23-20 18 HEPARIN ASSAY,UFH 0.4 IU/mL Normal [facility] Comment on above: Result Comment: The therapeutic reference range for UFH may be either 0.3-0.6 IU/mL or 0.3-0.7 IU/mL based on the clinical setting for anticoagulant therapy and the associated nomogram used. For heparin dosing guidelines based on clinical scenario and Heparin Assay results, please refer to local Pharmacy and the [facility] Guidelines for Anticoagulation therapy available on the [facility] intranet at:[email or web address]_Guidelines_for_[email or web address].aspx Performed By: #### T SH2 ####[id number] [id number] OPERATIVE REPORTon 8 OPERATIVE REPORT [facility] [id number] Name: DON ELKINSN: [id number]: 1Encounter Number: [id number] of Service: 03/23/2018Patient Location: [facility] [id number] Type: ISurgeon: Ana King Type: Operative ReportsPREOPERATIVE [...] wall puncture technique using ultrasound guidance. A 5-Indonesian sheath was placed. A wire was placed [...] MD ESTTT: 03/24/2018 00:30 AM ESTDICTATION NUMBER: [id number] JOB NUMBER: [id number]:Leonel Arteaga MD, [id number] Cheng MD, PhDElectronically Signed by Dr. Severiano Stapleton 04/01/2018 03:04:35 PM Normal [facility] OPIATE CONFIRMATION,URINEon 03-23-2018 6-ACETYLMORPHINE <10 Normal [facility] Comment on above: Result Comment: INTE RPRETIVE [...] the laboratory.Test developed and characteristics determined by [facility]. See Compliance Statement B: [employer]/ Performed By: #### O PIC2 ####[employer] [address] [place] [address] CODEINE <20 Normal [facility] Comment on above: Performed By: #### O PIC2 ####[employer] [address] [place] [address] HYDROCODONE <20 Normal [facility] Comment on above: Performed By: #### O PIC2 ####[employer] [address] [place] [address] HYDROMORPHONE <20 Normal [facility] Comment on above: Performed By: #### O PIC2 ####[employer] [address] [place] [address] MORPHINE <20 Normal [facility] Comment on above: Performed By: #### O PIC2 ####[employer] [address] [place] [address] NORHYDROCODONE <20 Normal [facility] Comment on above: Result Comment: Perf ormed by [employer],[address], [facility] [place] [address] izo.[employer], Esteban Carbajal MD - Lab. Director Performed By: #### O PIC2 ####[employer] [address] [place] [address] NOROXYCODONE <20 Normal [facility] Comment on above: Performed By: #### O PIC2 ####[employer] [address] [place] [address] NOROXYMORPHONE <20 Normal [facility] Comment on above: Performed By: #### O PIC2 ####[employer] [address] Count includes the [facility] [place] [address] OXYCODONE <20 Normal [facility] Comment on above: Performed By: #### O PIC2 ####[employer] [address] Count includes the [facility] [place] [address] OXYMORPHONE <20 Normal [facility] Comment on above: Performed By: #### O PIC2 ####[employer] [address]x293 Count includes the [facility] [place] [address] Preop Checkliston 03-23-2018 Preop Checklist Preop Checklist:Preo p Checklist: Procedure TypeIVC filter NPO [id number] 00:00 ID Band Onyes Allergy Bandno known [...] 23-Mar-2018 06:11 by Matt Zapien (ANDREA) Normal [facility] RENAL FUNCTION PANELon 03-23 Albumin mass conc 3.7 g/dL Normal 3.4 - 5.0 [facility] Comment on above: Performed By: #### T SH2 ####[id number] [place] [address] Anion gap 3 molar conc 15 mmol/L Normal 10 - 20 [facility] Comment on above: Performed By: #### T SH2 ####[id number] [place] [address] Calcium mass conc 9.0 mg/dL Normal 8.6 - 10.6 [facility] Comment on above: Performed By: #### T SH2 ####[id number] [place] [address] Chloride molar conc 102 mmol/L Normal 98 - 107 [facility] Comment on above: Performed By: #### T SH2 ####[id number] [place] [address] Creatinine mass conc 1.53 mg/dL High 0.50 - 1.30 [facility] Comment on above: Performed By: #### T SH2 ####[id number] [place] [address] GFR- AM. 56 mL/min/1.73m2 Abnormal >60 [facility] Comment on above: Result Comment: CALC ULATIONS OF ESTIMATED GFR ARE PERFORMED USING THE MDRD STUDY EQUATION FOR THE IDMS-TRACEABLE CREATININE METHODS. CLIN CHEM 2007;53:766-72 Performed By: #### T SH2 ####[id number] [place] [address] GFR-NON AM. 46 mL/min/1.73m2 Abnormal >60 [facility] Comment on above: Performed By: #### T SH2 ####[id number] [place] [address] Glucose mass conc 226 mg/dL High 74 - 99 [facility] Comment on above: Performed By: #### T SH2 ####[id number] [place] [address] HCO3 molar conc (Bld) 25 mmol/L Normal 21 - 32 [facility] Comment on above: Performed By: #### T SH2 ####[id number] [place] [address] Phosphate mass conc 4.0 mg/dL Normal 2.5 - 4.9 [facility] Comment on above: Result Comment: The performance characteristics of phosphorus testing in heparinized plasma have been validated by the individual laboratory site where testing is performed. Testing on heparinized plasma is not approved by the FDA; however, such approval is not necessary. Performed By: #### T SH2 ####[id number] [place] [address] Potassium molar conc 4.2 mmol/L Normal 3.5 - 5.3 [facility] Comment on above: Performed By: #### T SH2 ####[id number] [place] [address] Sodium molar conc 138 mmol/L Normal 136 - 145 [facility] Comment on above: Performed By: #### T SH2 ####[id number] [place] [address] Urea nitrogen mass conc 24 mg/dL High 6 - 23 [facility] Comment on above: Performed By: #### T SH2 ####[id number] [place] [address] CBCon 03-22-2018 Erythrocyte distribution width Auto Ratio (RBC) 12.8 % Normal 11.5 - 14.5 [facility] Comment on above: Performed By: #### L IPID ####[id number] [place] [address] Hematocrit Auto Volume Fraction (Bld) 38.0 % Low 41.0 - 52.0 [facility] Comment on above: Performed By: #### L IPID ####[id number] [place] [address] Hemoglobin mass conc (Bld) 12.8 g/dL Low 13.5 - 17.5 [facility] Comment on above: Performed By: #### L IPID ####[id number] [place] [address] MCHC Auto mass conc (RBC) 33.7 g/dL Normal 32.0 - 36.0 [facility] Comment on above: Performed By: #### L IPID ####[id number] [place] [address] MCV Auto Entitic volume (RBC) 93 fL Normal 80 - 100 [facility] Comment on above: Performed By: #### L IPID ####[id number] [place] [address] Nucleated RBC/100 WBC Ratio (Bld) 0.0 /100 WBC Normal 0.0-0.0 [facility] Comment on above: Performed By: #### L IPID ####[id number] [place] [address] Platelets Auto #/vol (Bld) 214 10*3/uL Normal 150 - 450 [facility] Comment on above: Performed By: #### L IPID ####[id number] [place] [address] RBC Auto #/vol (Bld) 4.07 x10E12/L Low 4.50 - 5.90 [facility] Comment on above: Performed By: #### L IPID ####[id number] [place] [address] WBC Auto #/vol (Bld) 7.3 10*3/uL Normal 4.4 - 11.3 [facility] Comment on above: Performed By: #### L IPID ####[id number] [place] [address] Erythrocyte distribution width Auto Ratio (RBC) 12.9 % Normal 11.5 - 14.5 [facility] Comment on above: Performed By: #### R ENAL ####[id number] [place] [address] Hematocrit Auto Volume Fraction (Bld) 40.8 % Low 41.0 - 52.0 [facility] Comment on above: Performed By: #### R ENAL ####[id number] [place] [address] Hemoglobin mass conc (Bld) 13.5 g/dL Normal 13.5 - 17.5 [facility] Comment on above: Performed By: #### R ENAL ####[id number] [place] [address] MCHC Auto mass conc (RBC) 33.1 g/dL Normal 32.0 - 36.0 [facility] Comment on above: Performed By: #### R ENAL ####[id number] [place] [address] MCV Auto Entitic volume (RBC) 94 fL Normal 80 - 100 [facility] Comment on above: Performed By: #### R ENAL ####[id number] [place] [address] Nucleated RBC/100 WBC Ratio (Bld) 0.0 /100 WBC Normal 0.0-0.0 [facility] Comment on above: Performed By: #### R ENAL ####[id number] [place] [address] Platelets Auto #/vol (Bld) 241 10*3/uL Normal 150 - 450 [facility] Comment on above: Performed By: #### R ENAL ####[id number] [place] [address] RBC Auto #/vol (Bld) 4.35 x10E12/L Low 4.50 - 5.90 [facility] Comment on above: Performed By: #### R ENAL ####[id number] [place] [address] WBC Auto #/vol (Bld) 9.4 10*3/uL Normal 4.4 - 11.3 [facility] Comment on above: Performed By: #### R ENAL ####[id number] [place] [address] Daily Progress Note-Yann chavez 03-22-2018 Protein mass [...] per Endo recs Objective Data: Objective Information:T PEYZYwD0Uoczk66.83303244/8895% Date/Time03/22 12: 12: 12: 12: 12:00Range(36C - 36.4C ) (73 - 83 ) (17 - 18 ) (120 - 188 )/ (57 - 99 ) (93% -99% ) Pain with Activity reported at 03/21 15:25: 0Pain at Rest reported at 03/21 15:25: 0 Pyqhjfu47/4 3:13: Weight in kg (Weight (kg)) 108.611/4 3:13: Weight in lbs ((lbs)) 239.4 Physical Exam: Constitutional: Resting in bed, NADHead/Neck: No JVDRespiratory/Thorax: CTABCardiovascular: RRR, S1 X7Jkhajlfzvrnvxflh: soft, NT/NDExtremities: No edemaNeurological: alert and oriented n7Vdmdlazpjarqb: Appropriate mood and behaviorSkin: psoriasis plaque over [...] Bolus) Injectable: 4000 unit(s) IntraVenous Push Every 2Kozwg4. Hydrocortisone: 2.5 mg Oral 9. Hydrocortisone: 30 [...] Times a Day18. Sodium Chloride 0.65% Nasal [place]: 2 spray(s) Each Nostril 2 Times aDay PRN Medications -- 1. Dextrose 50% in Water Injectable: 25 gram(s) IntraVenous Push Every 03Usoqezx6. Glucagon Injectable: 1 mg IntraMuscular Every 15 Minutes Currently Suspended Medications -- 1. Chlorhexidine Gluconate 0.12% Mucous Mem: 15 mL Topical Morning andEvening2. Hydrocortisone: 10 mg Oral 3. Hydrocortisone: 5 mg Oral Recent Lab Results: Results: I have reviewed these laboratory results: Glucose_POCT Trending View Gctuut81-Blp-8580 11:44:00 22-Mar-2018 07:52:00 21-Mar-2018 21:58:00Glucose-EVHK441 H 183 H 220 H Complete Blood [...] A4C: 17.4cm2LA Area A2C: 14.2 cm2LA [place] A4C: 6.0 cmLA [place] A2C: 4.7 cmLA Volume Index: 15.2 ml/m2RA VOLUME BY A/L METHOD: Normal Ranges:RA Area A4C: 12.8 ai2S-OXHD MEASUREMENTS: Normal Ranges:Ao Root: 2.90 cm (2.0-3.7cm)LAs: [...] 31.50 cm/sPulmV Pablo Jeremiah: 29.80 cm/sPulmV S/D Ejremiah: 1.70PulmV Sys Jeremiah: 51.80 cm/s Echocardiogram [Mar 19 2018 2:30PM] Impression: 1. No radiographic evidence of acute cardiopulmonary process. Xray Chest 2 View PA + Lateral [Mar 19 2018 2:19PM] Impression: 1. No radiographic evidence of acute cardiopulmonary process. Xray Chest 1 View [Mar 19 2018 9:20AM] Assessment and Plan:Assessment:67 yo M with HTN, DLD, T2DM, Addisson's, GERD, prostate ca s/p prostatectomy [id number], hypothyroidism, psoriasis, and most recently diagnosed with a PE andmultivessel CAD transferred to medicine at [facility] from [facility] on03/18 for CABG eval. Multiple [...] on PPICode status: Full Electronic Signatures:Vito Patino (SENIOR SYSTEMS ENGINEER-SURGICAL SUPERVISOR) (Signed 22-Mar-2018 14:13)Authored: Service, Subjective Data, Objective Data, Assessment and Plan,Signature/Cosignature/Att estationSPatience decker) (Signed 22-Mar-2018 15:25)Co-Signer: Service, Subjective Data, Objective Data, Assessment and Plan,Signature/Cosignature/Att estation Last Updated: 22-Mar-2018 15:25 by Patience Sow) Normal [facility] Daily Progress Note-Endocrin ologyon 03-22-2018 Protein mass conc Consult Type: subseq uent visit/care Service: Endocrinology Subjective Data:DON ELKINS is a 67 year old Male who is Hospital Day # 5. No acute events.IVC filter placement tomorrow. Objective Data: Objective Information:T YXQNJuO0Cjigz28.62088806/8895% Date/Time03/22 12: 12: 12: 12: 12:00Range(36C - [...] Bolus) Injectable: 4000 unit(s) IntraVenous Push Every 1Origl6. Hydrocortisone: 10 mg Oral 9. Hydrocortisone: 5 [...] Times a Day18. Sodium Chloride 0.65% Nasal [place]: 2 spray(s) Each Nostril 2 Times aDay PRN Medications -- 1. Dextrose 50% in Water Injectable: 25 gram(s) IntraVenous Push Every 49Xzrofuw3. Glucagon Injectable: 1 mg IntraMuscular Every 15 Minutes Currently Suspended Medications -- 1. Chlorhexidine Gluconate 0.12% Mucous Mem: 15 mL Topical Morning andEvening Recent Lab Results: Results: I have reviewed these laboratory results: Glucose_POCT Trending View Glapvi46-Jzn-6515 11:44:00 22-Mar-2018 07:52:00 21-Mar-2018 21:58:00 21-Mar-2018 15:52:00 21-Mar-2018 12:06:00 21-Mar-2018 08:37:00Glucose-YSOQ314 H 183 H 220 H 269 H [...] a past medicalhistory of HTN, HLD, T2DM, Shasta's disease, hypothyroidism, COPD, AKASH onCPAP, prostate ca s/p prostatectomy in 2011, and psoriasis who was transferredto HH[facility] service at [facility] from [facility] on 03/18 forCABG eval.Endocrine consulted fr evaluation of Shasta disease and treatment periop Patient was on supra-therapeutic dose of HCT 20-0-20 , fludrocortisone 0.1 ,mgdailyPatient has uncontrolled HTN and uncontrolled BSMost likely tomorrow (03/23) IVC filter placement Recommendations:1. Shasta's Disease-- Decrease Fludrocortisone to 0.05 mg 4 times weekly ( and friday)-- Continue Hydrocortisone to 10-5-2.5 mg at 0ak-88xl-6ac DAILY-- On day of IVC filter placement, [...] diet -will follow Please page with questions [phone] Patient seen and examined, plan discussed with [...] patient (as noted in the above attestation) [id number] Electronic Signatures:Starr Quevedo) (Signed 23-Mar-2018 12:38)Authored: Signature/Cosignature/Attestat ionCo-Signer: Service, Subjective Data, Objective Data, Assessment and Plan,Signature/Cosignature/Att estationJob Torres (Resident)) (Signed 22-Mar-2018 12:13)Authored: Service, Subjective Data, Objective Data, Assessment and Plan,Signature/Cosignature/Att estation Last Updated: 23-Mar-2018 12:38 by Starr Quevedo) Normal [facility] GLUCOSE-POCTon 03-22-2018 Glucose mass conc 275 mg/dL High 74 - 99 [facility] Comment on above: Performed By: #### L IPID ####[id number] [place] [address] Glucose mass conc 276 mg/dL High 74 - 99 [facility] Comment on above: Performed By: #### L IPID ####[id number] [place] [address] Glucose mass conc 308 mg/dL High 74 - 99 [facility] Comment on above: Performed By: #### L IPID ####[id number] [place] [address] Glucose mass conc 183 mg/dL High 74 - 99 [facility] Comment on above: Performed By: #### L IPID ####[id number] [place] [address] HEPARIN ASSAY,UFHon 03-22-20 18 HEPARIN ASSAY,UFH 0.2 IU/mL Normal [facility] Comment on above: Result Comment: The therapeutic reference range for UFH may be either 0.3-0.6 IU/mL or 0.3-0.7 IU/mL based on the clinical setting for anticoagulant therapy and the associated nomogram used. For heparin dosing guidelines based on clinical scenario and Heparin Assay results, please refer to local Pharmacy and the [facility] Guidelines for Anticoagulation therapy available on the [facility] intranet at:[email or web address]_Guidelines_for_[email or web address].aspx Performed By: #### L IPID ####[id number] [place] [address] PROSTATE SPECIFIC AGon 03-22 Prostate specific Ag mass conc ng/mL Normal 0.00 - 4.00 [facility] Comment on above: Result Comment: The FDA requires that the method used for PSAassay be reported to the physician. Valuesobtained with different assay methods must notbe used interchangeably. uses the [employer]VI[employer]ana Translationaur PSA method, which is a sandwichimmunoassay using chemiluminescence forquantitation. The assay is approved formeasurement of prostate-specific antigen (PSA)in serum and may be used in conjunction witha digital rectal examination in men 50 yearsand older as an aid in detection of prostatecancer. Performed By: #### L IPID ####[id number] [place] [address] RENAL FUNCTION PANELon 03-22 Albumin mass conc 3.8 g/dL Normal 3.4 - 5.0 [facility] Comment on above: Performed By: #### R ENAL ####[id number] [place] [address] Anion gap 3 molar conc 18 mmol/L Normal 10 - 20 [facility] Comment on above: Performed By: #### R ENAL ####[id number] [place] [address] Calcium mass conc 9.2 mg/dL Normal 8.6 - 10.6 [facility] Comment on above: Performed By: #### R ENAL ####[id number] [place] [address] Chloride molar conc 102 mmol/L Normal 98 - 107 [facility] Comment on above: Performed By: #### R ENAL ####[id number] [place] [address] Creatinine mass conc 1.66 mg/dL High 0.50 - 1.30 [facility] Comment on above: Performed By: #### R ENAL ####[id number] [place] [address] GFR- AM. 50 mL/min/1.73m2 Abnormal >60 [facility] Comment on above: Result Comment: CALC ULATIONS OF ESTIMATED GFR ARE PERFORMED USING THE MDRD STUDY EQUATION FOR THE IDMS-TRACEABLE CREATININE METHODS. CLIN CHEM 2007;53:766-72 Performed By: #### R ENAL ####[id number] [place] [address] GFR-NON AM. 41 mL/min/1.73m2 Abnormal >60 [facility] Comment on above: Performed By: #### R ENAL ####[id number] [place] [address] Glucose mass conc 257 mg/dL High 74 - 99 [facility] Comment on above: Performed By: #### R ENAL ####[id number] [place] [address] HCO3 molar conc (Bld) 24 mmol/L Normal 21 - 32 [facility] Comment on above: Performed By: #### R ENAL ####[id number] [place] [address] Phosphate mass conc 4.0 mg/dL Normal 2.5 - 4.9 [facility] Comment on above: Result Comment: The performance characteristics of phosphorus testing in heparinized plasma have been validated by the individual laboratory site where testing is performed. Testing on heparinized plasma is not approved by the FDA; however, such approval is not necessary. Performed By: #### R ENAL ####[id number] [place] [address] Potassium molar conc 4.5 mmol/L Normal 3.5 - 5.3 [facility] Comment on above: Performed By: #### R ENAL ####[id number] [place] [address] Sodium molar conc 139 mmol/L Normal 136 - 145 [facility] Comment on above: Performed By: #### R ENAL ####[id number] [place] [address] Urea nitrogen mass conc 29 mg/dL High 6 - 23 [facility] Comment on above: Performed By: #### R ENAL ####[id number] [place] [address] TYPE + SCREENon 03-22-2018 ABO TYPE A Normal [facility] Comment on above: Performed By: #### L IPID ####[id number] [place] [address] RH TYPE Positive Normal [facility] Comment on above: Performed By: #### L IPID ####[id number] [place] [address] Daily Progress Note-Cardiolo gyon 03-21-2018 Protein mass [...] episode unprovoked PE) Objective Data: Objective Information:T TEYQXoN0Avzwr678965229/7997%Da te/Time03/21 12: 12: 12: 12: 12:00Range(36C - 36.5C ) (78 - 90 ) (18 - 21 ) (134 - 171 )/ (73 - 102 ) (96%- 97% ) Pain with Activity reported at 03/21 8:30: 0Pain at Rest reported at 03/21 8:30: 0 Dcblmoc94/3 4:19: Weight in kg (Weight (kg)) 108.711 4:19: Weight in lbs ((lbs)) 239.6 Physical Exam: Constitutional: Resting in bed, NADHead/Neck: No JVDRespiratory/Thorax: CTABCardiovascular: RRR, S1 V1Vwkpdfnnoccystya: soft, NT/NDExtremities: No edemaNeurological: alert and oriented h4Xtekfvyniktaw: Appropriate mood and behaviorSkin: psoriasis plaque over [...] Bolus) Injectable: 4000 unit(s) IntraVenous Push Every 3Akhxy3. Hydrocortisone: 10 mg Oral 9. Hydrocortisone: 5 [...] Times a Day17. Sodium Chloride 0.65% Nasal [place]: 2 spray(s) Each Nostril 2 Times aDay PRN Medications -- 1. Dextrose 50% in Water Injectable: 25 gram(s) IntraVenous Push Every 47Woxptwz8. Glucagon Injectable: 1 mg IntraMuscular Every 15 Minutes Recent Lab Results: Results: I have reviewed these laboratory results: Glucose_POCT Trending View Ozqigm48-Tuv-[id number] 12:06:00 21-Mar-2018 08:37:00Glucose-MDKA405 H 192 H Heparin assay, UFH Trending View Kchlhn72-Ddm-5141 07:10:00 21-Mar-2018 03:30:00 20-Mar-2018 22:05:00Heparin assay, UFH0.4 [...] A4C: 17.4cm2LA Area A2C: 14.2 cm2LA [place] A4C: 6.0 cmLA [place] A2C: 4.7 cmLA Volume Index: 15.2 ml/m2RA VOLUME BY A/L METHOD: Normal Ranges:RA Area A4C: 12.8 lh4L-YWLS MEASUREMENTS: Normal Ranges:Ao Root: 2.90 cm (2.0-3.7cm)LAs: [...] T2DM, Addisson's, GERD, prostate ca s/p prostatectomy [id number], hypothyroidism, psoriasis, and most recently diagnosed with a PE andmultivessel CAD transferred to medicine at [facility] from [facility] on03/18 for CABG eval. Multiple [...] likely to improved with reducing Hydrocortisone dose Shasta's disease- Reduce fludrocortisone to 0.05 mg daily- Reduce hydrocortisone to 10mg/5mg/2.5mg- Follow Endocrine recs when NPO GERD- Continue home PPI HTN- Holding LAUREN- 159/83 - 171/102 over past 24 hours- 03/20 Increase Carvedilol to 12.5mg BID- Monitor BP with reducing Florinef dose DLD- Atorva 40mg- lipids 155/44/82/141 HypothyroidismTSH 2.51- Continue home levothyroxine GI ppx: on PPICode status: Full Electronic Signatures:Vito Patino (SENIOR SYSTEMS ENGINEER-SURGICAL SUPERVISOR) (Signed 21-Mar-2018 14:04)Authored: Service, Subjective Data, Objective Data, Assessment and Plan,Signature/Cosignature/Att estationSPatience decker) (Signed 22-Mar-2018 13:55)Co-Signer: Service, Subjective Data, Objective Data, Assessment and Plan,Signature/Cosignature/Att estation Last Updated: 22-Mar-2018 13:55 by Patience Sow) Normal [facility] Daily Progress Note-Endocrin ologyon 03-21-2018 Protein mass conc Consult Type: subseq uent visit/care Service: Endocrinology Subjective Data:DON ELKINS is a 67 year old Male who is Hospital Day # 4. Patient is doing okay today. Mo Complaints.His CABG was postponed.Possible IVC filter early next week. Objective Data: Objective Information:T MATBMtZ3Dmvuu86.94426625/8197% Date/Time03/21 8: 8: 8: 8: 8:00Range(36.3C - [...] Bolus) Injectable: 4000 unit(s) IntraVenous Push Every 8Lvseb5. Hydrocortisone: 10 mg Oral 9. Hydrocortisone: 5 [...] Water Injectable: 25 gram(s) IntraVenous Push Every 27Dbowtwx7. Glucagon Injectable: 1 mg IntraMuscular Every 15 Minutes Recent Lab Results: Results: I have reviewed these laboratory results: Glucose_POCT Trending View Mprhlz89-Fzg-0933 08:37:00 20-Mar-2018 17:30:00 20-Mar-2018 13:24:00 20-Mar-2018 08:28:00 19-Mar-2018 21:30:00 19-Mar-2018 18:25:00Glucose-AGRE770 H 243 H 234 H 195 H 308 H 226 H Complete Blood Count Trending View Mdfimp60-Bnx-8731 19:09:00 19-Mar-2018 17:57:00White Blood Cell Count11.0 10.8Nucleated Erythrocyte Count0.0 0.0Red Blood Cell Count4.48 L 4.32 LHGB14.0 13.4 LHCT40.8 L 39.6 LMCV91 48QAGD39.3 33.3JND729 259RDW-CV13.1 13.0 Renal Function Panel Trending View Uzeioi82-Wfe-6219 19:09:00 19-Mar-2018 17:57:00Glucose, Chzjl157 H 229 HER484 137K4.0 3.7AC850 102Bicarbonate, Serum24 23Anion Gap, Serum16 79XHU96 25 HCREAT1.38 H 1.36 HGFR-Non Ruawibgc58 A 52 AGFR- Fzbbycrq35 63Calcium, Serum9.0 9.4Phosphorus, Serum4.3 3.6ALB3.9 3.9 Assessment and Plan:Assessment: Mr. Elkins is a 67 yo WM with no known history of CAD, who has a past medicalhistory of HTN, HLD, T2DM, Brigida's disease, hypothyroidism, COPD, AKASH onCPAP, prostate ca s/p prostatectomy in 2011, and psoriasis who was [facility]to [facility] from [facility] on 03/18 forAKBG marshall.Endocrine consulted fr evaluation of Brigida disease and treatment periop Patient is o supra-therapeutic dose of HCT 20-0-20 , fludrocortisone 0.1 ,mgdailyPatient has uncontrolled HTN and uncontrolled BS REcs:-Continue Fludrocortisone to 0.05 mg daily- Continue Hydrocortisone to 10-5-2.5 mg at 7dh-11xj-1ni DAILY-- On day of IVC filter placement, [...] surgery please.-will follow Please page with questions [phone] Patient seen and examined, plan discussed with [...] patient (as noted in the above attestation) [id number] Electronic Signatures:Starr Quevedo) (Signed 23-Mar-2018 12:34)Authored: Signature/Cosignature/Attestat ionCo-Signer: Service, Subjective Data, Objective Data, Assessment and Plan,Signature/Cosignature/Att estationJob Torres (Resident)) (Signed 21-Mar-2018 11:41)Authored: Service, Subjective Data, Objective Data, Assessment and Plan,Signature/Cosignature/Att estation Last Updated: 23-Mar-2018 12:34 by Starr Quevedo) Normal [facility] Daily Progress Note-Pulmonol ogyon 03-21-2018 Daily Progress Note-Pulmonology Service: Pulmonology Subjective Data:DON ELKINS is a 67 year old Male who is Hospital Day # 4. Additional Information:Pt denies any active complaints. has been ambulatory in [facility] w/o CP/SOB.Previously, on occassion would have bleeding gums, but has not noticed anysince starting heparin. Reports cough, no sputum production. Objective Data: Objective Information:T WXLMZiE7Xbfyv918419864/7997%Da te/Time03/21 12: 12: 12: 12: 12:00Range(36C - 36.5C ) (78 - 90 ) (18 - 21 ) (134 - 171 )/ (73 - 102 ) (96%- 97% ) Pain with Activity reported at 03/21 8:30: 0Pain at Rest reported at 03/21 8:30: 0T MGQTSgV1Wfiwb100264238/7997%Da te/Time03/21 12: 12: 12: 12: 12:00Range(36C - [...] Bolus) Injectable: 4000 unit(s) IntraVenous Push Every 8Fpacf9. Hydrocortisone: 10 mg Oral 9. Hydrocortisone: 5 [...] Water Injectable: 25 gram(s) IntraVenous Push Every 46Hasjugh9. Glucagon Injectable: 1 mg IntraMuscular Every 15 Minutes Recent Lab Results: Results: I have reviewed these laboratory results: Glucose_POCT Trending View Hnpddc30-Ztk-5853 12:06:00 -Mar-2018 08:37:00Glucose-MCAH686 H 192 H Heparin assay, UFH Trending View Uqaano73-Pbe-8526 07:10:00 21-Mar-2018 03:30:00Heparin assay, UFH0.4 0.4 Assessment [...] discussed with Dr. Floyd call with questions [phone] Signature/Cosignature/Attestat ion:Attending AttestationI saw and evaluated the [...] patient (as noted in the above attestation) [id number] Electronic Signatures:Angie Fuentes) (Signed 03-Apr-2018 14:11)Authored: Signature/Cosignature/Attestat ionCo-Signer: Assessment and Plan, Signature/Cosignature/Attestat Joseph Perez (Fellow)) (Signed 21-Mar-2018 13:00)Authored: Service, Subjective Data, Objective Data, Assessment and Plan,Signature/Cosignature/Att estation Last Updated: 03-Apr-2018 14:11 by Angie Fuentes) Normal [facility] GLUCOSE-POCTon 03-21-2018 Glucose mass conc 220 mg/dL High 74 - 99 [facility] Comment on above: Performed By: #### R ENAL ####[id number] [place] [address] Glucose mass conc 269 mg/dL High 74 - [address] [place] [address] Comment on above: Performed By: #### R ENAL ####[id number] [place] [address] Glucose mass conc 255 mg/dL High 74 - 99 [facility] Comment on above: Performed By: #### R ENAL ####[id number] [place] [address] Glucose mass conc 192 mg/dL High 74 - 99 [facility] Comment on above: Performed By: #### R ENAL ####[id number] [place] [address] HEPARIN ASSAY,UFHon 03-21-20 18 HEPARIN ASSAY,UFH 0.3 IU/mL Normal [facility] Comment on above: Result Comment: The therapeutic reference range for UFH may be either 0.3-0.6 IU/mL or 0.3-0.7 IU/mL based on the clinical setting for anticoagulant therapy and the associated nomogram used. For heparin dosing guidelines based on clinical scenario and Heparin Assay results, please refer to local Pharmacy and the [facility] Guidelines for Anticoagulation therapy available on the [facility] intranet at:[email or web address]_Guidelines_for_Anticoagu.aspx Performed By: #### R ENAL ####[id number] [place] [address] HEPARIN ASSAY,UFH 0.4 IU/mL Normal [facility] Comment on above: Result Comment: The therapeutic reference range for UFH may be either 0.3-0.6 IU/mL or 0.3-0.7 IU/mL based on the clinical setting for anticoagulant therapy and the associated nomogram used. For heparin dosing guidelines based on clinical scenario and Heparin Assay results, please refer to local Pharmacy and [facility] Guidelines for Anticoagulation therapy available on the [facility] intranet at:[email or web address]_Guidelines_for_[email or web address].aspx Performed By: #### R ENAL ####[id number] [place] [address] HEPARIN ASSAY,UFH 0.4 IU/mL Normal [facility] Comment on above: Result Comment: The therapeutic reference range for UFH may be either 0.3-0.6 IU/mL or 0.3-0.7 IU/mL based on the clinical setting for anticoagulant therapy and the associated nomogram used. For heparin dosing guidelines based on clinical scenario and Heparin Assay results, please refer to local Pharmacy and [facility] Guidelines for Anticoagulation therapy available on the [facility] intranet at:[email or web address]_Guidelines_for_[email or web address].aspx Performed By: #### C OAGS ####[id number] [place] [address] HEPARIN ASSAY,UFH 0.2 IU/mL Normal [facility] Comment on above: Result Comment: The therapeutic reference range for UFH may be either 0.3-0.6 IU/mL or 0.3-0.7 IU/mL based on the clinical setting for anticoagulant therapy and the associated nomogram used. For heparin dosing guidelines based on clinical scenario and Heparin Assay results, please refer to local Pharmacy and the [facility] Guidelines for Anticoagulation therapy available on the [facility] intranet at:[email or web address]_Guidelines_for_[email or web address].aspx Performed By: #### C OAGS ####[id number] [place] [address] CBCon 03-20-2018 Erythrocyte distribution width Auto Ratio (RBC) 13.1 % Normal 11.5 - 14.5 [facility] Comment on above: Performed By: #### C OAGS ####[id number] [place] [address] Hematocrit Auto Volume Fraction (Bld) 40.8 % Low 41.0 - 52.0 [facility] Comment on above: Performed By: #### C OAGS ####[id number] [place] [address] Hemoglobin mass conc (Bld) 14.0 g/dL Normal 13.5 - 17.5 [facility] Comment on above: Performed By: #### C OAGS ####[id number] [place] [address] MCHC Auto mass conc (RBC) 34.3 g/dL Normal 32.0 - 36.0 [facility] Comment on above: Performed By: #### C OAGS ####[id number] [place] [address] MCV Auto Entitic volume (RBC) 91 fL Normal 80 - 100 [facility] Comment on above: Performed By: #### C OAGS ####[id number] [place] [address] Nucleated RBC/100 WBC Ratio (Bld) 0.0 /100 WBC Normal 0.0-0.0 [facility] Comment on above: Performed By: #### C OAGS ####[id number] [place] [address] Platelets Auto #/vol (Bld) 252 10*3/uL Normal 150 - 450 [facility] Comment on above: Performed By: #### C OAGS ####[id number] [place] [address] RBC Auto #/vol (Bld) 4.48 x10E12/L Low 4.50 - 5.90 [facility] Comment on above: Performed By: #### C OAGS ####[id number] [place] [address] WBC Auto #/vol (Bld) 11.0 10*3/uL Normal 4.4 - 11.3 [facility] Comment on above: Performed By: #### C OAGS ####[id number] [id number] Clinical Event Note-Regardin g PE per Dr. Angel 03-20-2018 Clinical Event Note-Regarding PE per Dr. Yu Event:Topic: Regarding PE per Dr. YuDetails:Per Dr. Yu would like IVC Filter placed today 03/20/2018, and ideallystabilization for one week would be optimal.Will advice Dr. Gaston. Provider / Team Contact Information:Provider/Team Contact Info-Pager Number: cardiac surgery [phone] Electronic Signatures:Gilda Tai (SENIOR SYSTEMS ENGINEER-SURGICAL SUPERVISOR) (Signed 20-Mar-2018 11:53)Authored: Event, Provider / Team Contact Information Last Updated: 20-Mar-2018 11:53 by Gilda Tai (SENIOR SYSTEMS ENGINEER-SURGICAL SUPERVISOR) Normal [facility] Consult-Endocrinologyon - Consult-Endocrino logy Service:Service: Endocrinology History of Present Illness:Admission Reason: Transferred for CABG evalHPI:PCP: Sal Hernandez (jaleesa) - Levi Sinha: [place] 67 yo WM with no known history of CAD, who has a past medical history of HTN,HLD, T2DM, Brigida's disease, hypothyroidism, COPD, AKASH on CPAP, prostate spring/p prostatectomy in 2011, and psoriasis who [facility] from [facility] on 03/18 for CABG eval. Family history significant for [place], [place], CHF, HTN, DM and DLD. He quit [...] above Outside Hospital cardiac work up:CTA at [facility]:Pulmonary emboli involving the bilateral lobar segmental, and severalsubsegmental branches (RUL, RML, RLL, FIDEL, LLL). TTE at [facility] 03/15/18:EF 60-65% PMH: HTN, HLD, T2DM, Brigida's [...] microscopic hematuria, rootcanal 2 weeks ago. FHx: CAD/[place], cancer, DM, HTN, migraines, CVA Social: former [...] No Known Allergies: Objective: Objective Information: T GYWQOeC1Icvrh03.89290953/7496% Date/Time03/20 11: 11: 11: 11:0703/20 11:07Range(36.1C - 37.1C ) (67 - 90 ) (16 - 18 ) (119 - 174 )/ (74 - 101 )(95% - 97% )Highest temp of 37.1 C was recorded at 03/20 5:35 Physical Exam: Constitutional: central obesity , moonlike Facies , acanthosis nigricans, skintags , Supraclavicular fat savzz7g2 RRRBP high up to 170 systolic in [...] Bolus) Injectable: 4000 unit(s) IntraVenous Push Every 7Wniow0. Hydrocortisone: 20 mg Oral 2 Times a Day9. Influenza Virus (Inactive) HIGH DOSE Adult Vaccine: 0.5 mL XawyqRkrqaizkBxua58. Insulin Lispro Mild Corrective Scale: unit(s) SubCutaneous 3 Times a DayBefore Meals11. Levothyroxine: 150 microgram(s) Oral Daily12. Mupirocin 2%: 0.5 application(s) Each Nostril 2 Times a Day13. Pantoprazole: 40 mg Oral Daily14. Polyethylene Glycol: 17 gram(s) Oral Daily15. rOPINIRole: 2 mg Oral 3 Times a Day PRN Medications -- 1. Dextrose 50% in Water Injectable: 25 gram(s) IntraVenous Push Every 35Uqqcutz3. Glucagon Injectable: 1 mg IntraMuscular Every 15 Minutes Recent Lab Results: Results: I have reviewed these laboratory results: Glucose_POCT Trending View Upoffv73-Kll-2416 08:28:00 19-Mar-2018 21:30:00 19-Mar-2018 18:25:00 19-Mar-2018 13:58:00 19-Mar-2018 08:27:00Glucose-LFNL094 H 308 H 226 H 175 H 172 H Renal Function Panel Trending View Wjycnj83-Mvu-6049 17:57:00 19-Mar-2018 00:39:00Glucose, Ttxzr214 H 206 NIU851 138K3.9 4.8XM709 102Bicarbonate, Serum23 23Anion Gap, Serum16 78VPS75 H 59KBDFX4.36 H 1.42 HGFR-Non Sjdtdhlq14 A 50 AGFR- Seleodxn31 61Calcium, Serum9.4 9.2Phosphorus, Serum3.6 3.5ALB3.9 4.1 Hepatic [...] 240 All ranges are based on fasting [facility] Cholesterol, Serum 44.5 . AGE VERY [...] a past medical history of HTN,HLD, T2DM, Shasta's disease, hypothyroidism, COPD, AKASH on CPAP, prostate spring/p prostatectomy in 2011, and psoriasis who [facility] from [facility] on 03/18 for CABG eval.Endocrine consulted fr evlaution of Shasta disease and treatment periop Patient is o supratherapeutic dose of HCT 20-0-20 , fludrocortisone 0.1 ,mgdailyPAtient has uncontrolled HTn and uncontrolled BS REcs:-Please decrease Fludro to 0.05 mg daily-Please change HCt to 10-5-2.5 mg at [id number]-54ze-[id number] DAILY-On the day of the surgery please [...] patient (as noted in the above attestation) [id number] Electronic Signatures:Starr Quevedo) (Signed 21-Mar-2018 10:00)Authored: Signature/Cosignature/Attestat ionCo-Signer: Service, History of Present Illness, Allergies, Objective,Assessment/Recommend ations, Signature/Cosignature/Attestat Job Garrison ( (Resident)) (Signed 20-Mar-2018 11:37)Authored: Service, History of Present Illness, Allergies, ObjectiveHasmukh Stephenson ( (Resident)) (Signed 20-Mar-2018 16:47)Entered: Objective, Assessment/Recommendations,Sig nature/Cosignature/Attestation Authored: Service, History of Present Illness, Allergies, Objective,Assessment/Recommend ations, Signature/Cosignature/Attestat ion Last Updated: 21-Mar-2018 10:00 by Starr Quevedo) Normal [facility] Consult-Pulmonologyon 2017 Consult-Pulmonolo gy Service:Service: Pulmonology [...] sided chest pain, associated with nausea. 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 He quit smoking 20 years ago.Social Hx: Has an occasional beer, and denies any drug use. 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 Hydrocortisone: 20 mg Oral 2 Times a Day9. Influenza Virus (Inactive) HIGH DOSE Adult Vaccine: 0.5 mL ZprswJkopjyccCwwz98. Insulin Lispro Mild Corrective Scale: unit(s) SubCutaneous 3 Times a DayBefore Meals11. Levothyroxine: 150 microgram(s) Oral Daily12. Mupirocin 2%: 0.5 application(s) Each Nostril 2 Times a Day13. Pantoprazole: 40 mg Oral Daily14. Polyethylene Glycol: 17 gram(s) Oral Daily15. rOPINIRole: 2 mg Oral 3 Times a Day PRN Medications -- 1. Dextrose 50% in Water Injectable: 25 gram(s) IntraVenous Push Every 75Ouiuera8. Glucagon Injectable: 1 mg IntraMuscular Every 15 [...] -0.5Bicarbonate, Calculated, Arterial 24.2 Radiology Results: Results: Conclusion:[facility] PVR (Arterial Physiologic) BROOKS [Mar 20 [...] A4C: 17.4cm2LA Area A2C: 14.2 cm2LA [place] A4C: 6.0 cmLA [place] A2C: 4.7 cmLA Volume Index: 15.2 ml/m2RA VOLUME BY A/L METHOD: Normal Ranges:RA Area A4C: 12.8 lr9D-AVLP MEASUREMENTS: Normal Ranges:Ao Root: 2.90 cm (2.0-3.7cm)LAs: [...] patient (as noted in the above attestation) [id number]/ Additional FindingsConsulted for unprovoked PE. MOdest clot [...] 21-Mar-2018 11:03 by Zac Yu (DO) Normal [facility] Daily Progress Note-Cardiac Surgeryon 03-20-2018 Protein mass conc Consult Type: subseq uent visit/care Service: Cardiac Surgery Subjective Data:DON ELKINS is a 67 year old Male who is Hospital Day # 3. Objective Data: Objective Information:T RITEPaX8Lafcd49.93650973/19525 %Date/Time03/20 11: 16: 16: 16: 16:53Range(36.1C - 37.1C ) (67 - 90 ) (17 - 20 ) (119 - 174 )/ (74 - 102 )(96% - 97% )Highest temp of 37.1 C was recorded at 03/20 5:35 Pain with Activity reported at 03/20 20:26: 0Pain at Rest reported at 03/20 20:26: 0 Fofpkco19/2 5:35: Weight in kg (Weight (kg)) 108.911 [...] Bolus) Injectable: 4000 unit(s) IntraVenous Push Every 4Lcgnh8. Hydrocortisone: 10 mg Oral 8. Hydrocortisone: 5 [...] Water Injectable: 25 gram(s) IntraVenous Push Every 48Qgprxpc1. Glucagon Injectable: 1 mg IntraMuscular Every 15 [...] NEGATIVE CUTOFF LEVEL: 150 NG/ML The metabolite B-ttabb-rkvoqlyjkhrruy (LAAM) is not detected by this method [...] Urine YELLOW Reference Range: STRAW,YELLOWAppearance, Urine CLEARSpecific [place], Urine 1.013pH, Urine 6.0Protein, Urine NEGATIVEGlucose, Urine [...] a past medical history of HTN,HLD, T2DM, Shasta's disease, hypothyroidism, COPD, AKASH on CPAP, prostate spring/p prostatectomy in 2011, and psoriasis [facility] for CABG eval. Ptpresented to [facility] with chest pressure and dyspnea. He as found to havebilat PEs, was started on Heparin gtt, and transferred to [facility]. He wasfound to have a troponin leak at 2.25. Cardiology was consulted and the patientwas diagnosed with ACS, NSTEMI. He underwent a TTE and cath. He had normal EF,mild AI, and triple vessel CAD so was transferred to [facility] for CABG eval.Cardiac surgery consulted 03/19 for [...] clinically Signature/Cosignature/Attestat ion:Provider/Team Contact Info-Pager Numbercardiac surgery [phone] Electronic Signatures:Mary Munroe (SENIOR SYSTEMS ENGINEER-SURGICAL SUPERVISOR) (Signed 20-Mar-2018 20:40)Authored: Service, Subjective Data, Objective Data, Assessment and Plan,Signature/Cosignature/Att estation Last Updated: 20-Mar-2018 20:40 by Mary Munroe (SENIOR SYSTEMS ENGINEER-SURGICAL SUPERVISOR) Normal [facility] Daily Progress Note-Yann chavez 03-20-2018 Protein mass [...] Hydrocortisone per Endocrinology Objective Data: Objective Information:T XMUNPnS6Yfzne70.98482507/32240 %Date/Time03/20 11: 16: 16: 16: 16:53Range(36.1C - 37.1C ) (67 - 90 ) (17 - 20 ) (119 - 174 )/ (74 - 102 )(96% - 97% )Highest temp of 37.1 C was recorded at 03/20 5:35 Pain with Activity reported at 03/20 8:30: 0Pain at Rest reported at 03/20 8:30: 0 Tvegupp80/2 5:35: Weight in kg (Weight (kg)) 108.9105/20 5:35: Weight in lbs ((lbs)) 240 Physical Exam: Constitutional: Resting in bed, NADHead/Neck: No JVDRespiratory/Thorax: CTABCardiovascular: RRR, S1 F6Pydxsikrdkzbrkwv: soft, NT/NDExtremities: Right wrist site of catheterization intact, normal pulse. Noperipheral edemaNeurological: alert and oriented t1Jbsigogernfmc: Appropriate mood and behaviorSkin: psoriasis plaque over [...] Bolus) Injectable: 4000 unit(s) IntraVenous Push Every 0Gundm1. Hydrocortisone: 10 mg Oral 8. Hydrocortisone: 5 [...] Water Injectable: 25 gram(s) IntraVenous Push Every 28Kdtonug9. Glucagon Injectable: 1 mg IntraMuscular Every 15 Minutes Recent Lab Results: Results: I have reviewed these laboratory results: Glucose_POCT Trending View Qgoapc41-Auv-5872 17:30:00 20-Mar-2018 13:24:00 20-Mar-2018 08:28:00 19-Mar-2018 21:30:00 19-Mar-2018 18:25:00Glucose-UVVD564 H 234 H 195 H 308 H [...] A4C: 17.4cm2LA Area A2C: 14.2 cm2LA [place] A4C: 6.0 cmLA [place] A2C: 4.7 cmLA Volume Index: 15.2 ml/m2RA VOLUME BY A/L METHOD: Normal Ranges:RA Area A4C: 12.8 tn0X-WZRG MEASUREMENTS: Normal Ranges:Ao Root: 2.90 cm (2.0-3.7cm)LAs: [...] T2DM, Addisson's, GERD, prostate ca s/p prostatectomy [id number], hypothyroidism, psoriasis, and most recently diagnosed with a PE andmultivessel CAD transferred [facility] medicine [facility] from [facility] on03/18 for CABG eval. Multiple [...] 7.9%- BS 172, 175, 226, 308, 195 Shasta's disease- Reduce fludrocortisone to 0.05 mg daily- Reduce hydrocortisone to 10mg/5mg/2.5mg- Follow Endocrine recs pre op GERD- Continue home PPI HTN- Holding LAUREN- 120/79 - 171/93- Increase Carvedilol to 12.5mg BID- Monitor BP with reducing Florinef dose DLD- Atorva 40mg- lipids 155/44/82/141 HypothyroidismTSH 2.51- Continue home levothyroxine GI ppx: on PPICode status: Full Electronic Signatures:Vito Patino (SENIOR SYSTEMS ENGINEER-SURGICAL SUPERVISOR) (Signed 20-Mar-2018 19:13)Authored: Service, Subjective Data, Objective Data, Assessment and Plan,Signature/Cosignature/Att Mor Vasquez) (Signed 01-Apr-2018 13:54)Co-Signer: Service, Subjective Data, Objective Data, Assessment and Plan,Signature/Cosignature/Att estation Last Updated: 01-Apr-2018 13:54 by Mor Calderon) Normal [facility] GLUCOSE-POCTon 03-20-2018 Glucose mass conc 243 mg/dL High 74 - 99 [facility] Comment on above: Performed By: #### C OAGS ####[id number] [place] [address] Glucose mass conc 234 mg/dL High 74 - 99 [facility] Comment on above: Performed By: #### C OAGS ####[id number] [place] [address] Glucose mass conc 195 mg/dL High 74 - 99 [facility] Comment on above: Performed By: #### C BC ####[id number] [place] [address] HEMOGLOBIN A1Con 03-20-2018 Glucose mass conc Canceled Normal [facility] Comment on above: Order Comment: TEST HEMOGLOBIN A1C WAS CANCELLED, 03/20/2018 18:41 DUPLICATE ORDER. Performed By: #### C OAGS ####[id number] [place] [address] Hemoglobin A1c/Hemoglobin.to romy mass fraction (Bld) Canceled Normal [facility] Comment on above: Order Comment: TEST HEMOGLOBIN A1C WAS CANCELLED, 03/20/2018 18:41 DUPLICATE ORDER. Result Comment: Diag nosis of Diabetes-Adults Non-Diabetic: < or = 5.6% Increased risk for developing diabetes: 5.7-6.4% Diagnostic of diabetes: > or = 6.5%. Monitoring of Diabetes Age (y) Therapeutic Goal (%) Adults: >18 <7.0 Pediatrics: 13-18 <7.5 7-12 <8.0 0- 6 7.5-8.5 [place] [employer]. Diabetes Care 33(S1), May 2009. Performed By: #### C OAGS ####[id number] [place] [address] HEPARIN ASSAY,UFHon 03-20-20 18 HEPARIN ASSAY,UFH 0.1 IU/mL Normal [facility] Comment on above: Result Comment: The therapeutic reference range for UFH may be either 0.3-0.6 IU/mL or 0.3-0.7 IU/mL based on the clinical setting for anticoagulant therapy and the associated nomogram used. For heparin dosing guidelines based on clinical scenario and Heparin Assay results, please refer to local Pharmacy and the [facility] Guidelines for Anticoagulation therapy available on the [facility] intranet at:[email or web address] Performed By: #### C OAGS ####[id number] [place] [address] MAGNESIUMon 03-20-2018 Magnesium mass conc Canceled Normal [facility] Comment on above: Order Comment: TEST MAGNESIUM WAS CANCELLED, 03/20/2018 08:04 NO SPECIMEN RECEIVED IN LAB. Performed By: #### C BC ####[id number] [place] [address] RENAL FUNCTION PANELon 03-20 Albumin mass conc 3.9 g/dL Normal 3.4 - 5.0 [facility] Comment on above: Performed By: #### C OAGS ####[id number] [place] [address] Anion gap 3 molar conc 16 mmol/L Normal 10 - 20 [facility] Comment on above: Performed By: #### C OAGS ####[id number] [place] [address] Calcium mass conc 9.0 mg/dL Normal 8.6 - 10.6 [facility] Comment on above: Performed By: #### C OAGS ####[id number] [place] [address] Chloride molar conc 102 mmol/L Normal 98 - 107 [facility] Comment on above: Performed By: #### C OAGS ####[id number] [place] [address] Creatinine mass conc 1.38 mg/dL High 0.50 - 1.30 [facility] Comment on above: Performed By: #### C OAGS ####[id number] [place] [address] GFR- AM. 62 mL/min/1.73m2 Normal >60 [facility] Comment on above: Result Comment: CALC ULATIONS OF ESTIMATED GFR ARE PERFORMED USING THE MDRD STUDY EQUATION FOR THE IDMS-TRACEABLE CREATININE METHODS. CLIN CHEM 2007;53:766-72 Performed By: #### C OAGS ####[id number] [place] [address] GFR-NON AM. 51 mL/min/1.73m2 Abnormal >60 [facility] Comment on above: Performed By: #### C OAGS ####[id number] [place] [address] Glucose mass conc 201 mg/dL High 74 - 99 [facility] Comment on above: Performed By: #### C OAGS ####[id number] [place] [address] HCO3 molar conc (Bld) 24 mmol/L Normal 21 - 32 [facility] Comment on above: Performed By: #### C OAGS ####[id number] [place] [address] Phosphate mass conc 4.3 mg/dL Normal 2.5 - 4.9 [facility] Comment on above: Result Comment: The performance characteristics of phosphorus testing in heparinized plasma have been validated by the individual laboratory site where testing is performed. Testing on heparinized plasma is not approved by the FDA; however, such approval is not necessary. Performed By: #### C OAGS ####[id number] [place] [address] Potassium molar conc 4.0 mmol/L Normal 3.5 - 5.3 [facility] Comment on above: Performed By: #### C OAGS ####[id number] [place] [address] Sodium molar conc 138 mmol/L Normal 136 - 145 [facility] Comment on above: Performed By: #### C OAGS ####[id number] [place] [address] Urea nitrogen mass conc 22 mg/dL Normal 6 - 23 [facility] Comment on above: Performed By: #### C OAGS ####[id number] [place] [address] VAS LAB Arterial Duplex Ult rasoundon 03-20-2018 VAS LAB Arterial Duplex Ultrasound [facility], [address] [place], [place] [id number] and Vascular Lab Report Upper Arterial Duplex Ultrasound Patient Name: DON Mar Physician: [id number] Olesya Fall MDStudy Date: 03/20/2018 Referring Physician: [id number] Calderon MDMRN/PID: [id number] PCP:Accession/Order#: [id number] CC Report to:Date of : 1950 Technologist: Jasvir LAYNETGender: Cristhian Technologist 2:Admission Status: Inpatient Location Performed: [facility] Diagnosis/ICD: I24.8-Cardiac Ischemia;Z01.818-Encounter for other preprocedural examinationProcedure/CPT: 09506 Upper arterial Duplex Limited-18646 CONCLUSIONS:Right Upper Arterial: The right radial artery is patent with triphasic waveforms.Left Upper Arterial: The left radial artery is patent with triphasic waveforms. Imaging & Doppler Findings: Right Left PSV Waveform PSV Nywdtihh84 cm/s Triphasic Radial 87 cm/s Triphasic Right LeftRadial Diam P 2.6 mm 2.2 mmRadial Diam M 2.5 mm 2.2 mmRadial Diam D 2.3 mm 2.0 mm [id number] Olesya Fall MD Final Normal [facility] VASC LAB Carotid Artery Dupl ex Ultrasounon 03-20-2018 VAS LAB Carotid Artery Duplex Ultrasoun [facility], [address] [place], [place] [id number] and Vascular Lab Report Carotid Artery Duplex Ultrasound Patient Name: DON Mar Physician: [id number] Olesya Fall MDStudy Date: 03/20/2018 Referring Physician: [id number] Calderon MDMRN/PID: [id number] PCP:Accession/Order#: [id number] CC Report to:Date of : 1950 Technologist: Jasvir LAYNETGender: Cristhian Technologist 2:Admission Status: Inpatient Location Performed: [facility] Diagnosis/ICD: I24.8-Cardiac Ischemia;Z01.818-Encounter for other preprocedural examinationProcedure/CPT: 02387 Cerebrovacular Carotid Duplex scan complete-11050 CONCLUSIONS:Right Carotid: Findings are consistent with less [...] 206 cm/s Right LeftICA/CCA Ratio 1.3 0.8 [id number] Olesya Fall MD Final Normal [facility] VASC LAB PVR (Arterial Physi ologic) ABIon 03-20-2018 VASC LAB PVR (Arterial Physiologic) BROOKS [facility], [address] [place] [address] and Vascular Lab Report PVR BROOKS Patient Name: DON Mar Physician: [id number] Olesya Fall MDStudy Date: 03/20/2018 Referring Physician: [id number] Mor Calderon MDMRN/PID: [id number] PCP:Accession/Order#: [id number] CC Report to:Date of : 1950 Technologist: Jasvir Mckoy: Cristhian Technologist 2:Admission Status: Inpatient Location Performed: [facility] Diagnosis/ICD: I24.8-Cardiac Ischemia;Z01.818-Encounter for other preprocedural examinationProcedure/CPT: 66847 Peripheral artery BROOKS Only-12488 CONCLUSIONS:Right Upper PVR: Baseline indices less than [...] Right LeftBrachial Pressure 146 mmHg 143 mmHg [id number] Olesya Fall MD Final Normal [facility] VASC LAB PVR (Arterial Physiologic) BROOKS [facility], [address] [place] [address] and Vascular Lab Report PVR BROOKS Patient Name: DON Mar Physician: [id number] Olesya Fall MDStudy Date: 03/20/2018 Referring Physician: [id number] Mor Calderon [facility]: [id number] PCP:Accession/Order#: [id number] CC Report to:Date of : 1950 Technologist: Jasvir Morrow Technologist 2:Admission Status: Inpatient Location Performed: [facility] Diagnosis/ICD: I73.9-Peripheral vascular disease, unspecified;I24.8-Cardiac Ischemia;Z01.818-Encounter for other preprocedural examinationProcedure/CPT: 17942 Peripheral artery BROOKS Only-94576 CONCLUSIONS:Right Lower PVR: No evidence of arterial [...] and may make absolute Segmental Limb Pressures (CORRECTIONS NURSE) unreliable. Triphasic flow is noted in the [...] Right LeftBrachial Pressure 146 mmHg 145 mmHg [id number] Olesya Fall MD Final Normal [facility] VASC LAB Pre-op Vessel Vein Mappingon 03-20-2018 VASC LAB Pre-op Vessel Vein Mapping [facility], [address] [place] [address] and Vascular Lab Report Pre-op Vein Mapping Lower Patient Name: DON ELKINS Reading Physician: [id number] Olesya Fall MDStudy Date: 03/20/2018 Referring Physician: [id number] Calderon MDMRN/PID: [id number] PCP:Accession/Order#: [id number] CC Report to:Date of : 1950 Technologist: Jasvir Owens RVTGender: Cristhian Technologist 2:Admission Status: Inpatient Location Performed: [facility] Diagnosis/ICD: Z01.818-Encounter for other preprocedural examination;I24.8-Cardiac IschemiaProcedure/CPT: 36781 Vein mapping complete-21098 CONCLUSIONS:Left Lower Vein Mapping: The left great [...] mmSSV Prox FibroticSSV Mid FibroticSSV Distal Fibrotic [id number] Olesya Fall MD Final Normal [facility] ARTERIAL BLOOD GASon 018 BASE EXCESS-BLOOD -0.5 mmol/L Normal -2.0 - 3.0 [facility] Comment on above: Performed By: #### E MRAD ####NO LOCATION NEEDED Oxygen ppres (BldA) 79 mm[Hg] Low 85 - 95 [facility] Comment on above: Performed By: #### E MRAD ####NO LOCATION NEEDED PCO2 39 mmHg Normal 38 - 42 [facility] Comment on above: Performed By: #### E MRAD ####NO LOCATION NEEDED pH (Bld) 7.40 [pH] Normal 7.38 - 7.42 [facility] Comment on above: Performed By: #### E MRAD ####NO LOCATION NEEDED RBC Auto #/vol (Bld) 24.2 mmol/L Normal 22.0 - 26.0 [facility] Comment on above: Performed By: #### E MRAD ####NO LOCATION NEEDED SO2 96 % Normal 94 - 100 [facility] Comment on above: Performed By: #### E MRAD ####NO LOCATION NEEDED ARTERIAL H+Hon 03-19-2018 Hematocrit Auto Volume Fraction (Bld) 41.0 % Normal 41.0 - 52.0 [facility] Comment on above: Performed By: #### H HNA1 ####[id number] [place] [address] HGB,CALCULATED 13.9 g/dL Normal 13.5 - 17.5 [facility] Comment on above: Performed By: #### H HNA1 ####[id number] [place] [address] ARTERIAL POTASSIUMon 018 Potassium molar conc 3.7 mmol/L Normal 3.5 - 5.3 [facility] Comment on above: Performed By: #### P OTGA ####[id number] [place] [address] Admission Risk Screen - Adul ton 03-19-2018 [...] Advance Directive typeLiving Will, Durable Power of Winding Department Supervisor for Healthcare Living Will AvailabilityLiving Will not available now Living Will [id number] Durable Power of Winding Department Supervisor AvailabilityDPOA not available now Durable Power of Winding Department Supervisor [id number] Durable Power of Winding Department Supervisor contact (name and number)Rikki [place] Screen:Type [...] Learning Preferencesskill demonstration Cultural Considerationsnone Developmental Considerationsnone Spiritism Considerationsnone Learning Assessment (Other Learner): Other learner [...] Spiritual Screen: Are there any cultural, spiritual, rastafari practices/values/needs that areimportant for us to knowno CAGE:Is this an injured patient at a Trauma Center ([facility] / [facility]): no Vaccinations:Vaccination - Influenza Vaccination Screen: Is [...] 19-Mar-2018 00:38 by Jeannie Shelton (RN) Normal [facility] BN ORTHOPANTOGRAMon 03-19-20 18 BN ORTHOPANTOGRAM Name: DON ELKINS STUDY:BN ORTHOPANTOGRAM; 03/19/2018 12:56 pm INDICATION:Signs/Symptoms: tooth pain, s/p recent root canal, pre op CABG [id number]. COMPARISON:None. ORDERING CLINICIAN:VITO PATINO TECHNIQUE:ORTHOPANTOGRAM FINDINGS:Suspected dental caries right maxillary premolar. No other suspiciouslucency seen. Dental amalgam noted. IMPRESSION: Suspected periapical abscess right maxillary premolar.Electronically signed by: SULMA FLOR MD Normal [facility] CBCon 03-19-2018 Erythrocyte distribution width Auto Ratio (RBC) 13.0 % Normal 11.5 - 14.5 [facility] Comment on above: Performed By: #### C BC ####[id number] [place] [address] Hematocrit Auto Volume Fraction (Bld) 39.6 % Low 41.0 - 52.0 [facility] Comment on above: Performed By: #### C BC ####[id number] [place] [address] Hemoglobin mass conc (Bld) 13.4 g/dL Low 13.5 - 17.5 [facility] Comment on above: Performed By: #### C BC ####[id number] [place] [address] MCHC Auto mass conc (RBC) 33.8 g/dL Normal 32.0 - 36.0 [facility] Comment on above: Performed By: #### C BC ####[id number] [place] [address] MCV Auto Entitic volume (RBC) 92 fL Normal 80 - 100 [facility] Comment on above: Performed By: #### C BC ####[id number] [place] [address] Nucleated RBC/100 WBC Ratio (Bld) 0.0 /100 WBC Normal 0.0-0.0 [facility] Comment on above: Performed By: #### C BC ####[id number] [place] [address] Platelets Auto #/vol (Bld) 259 10*3/uL Normal 150 - 450 [facility] Comment on above: Performed By: #### C BC ####[id number] [place] [address] RBC Auto #/vol (Bld) 4.32 x10E12/L Low 4.50 - 5.90 [facility] Comment on above: Performed By: #### C BC ####[id number] [place] [address] WBC Auto #/vol (Bld) 10.8 10*3/uL Normal 4.4 - 11.3 [facility] Comment on above: Performed By: #### C BC ####[id number] [place] [address] Erythrocyte distribution width Auto Ratio (RBC) 13.0 % Normal 11.5 - 14.5 [facility] Comment on above: Performed By: #### C BC ####[id number] [place] [address] Hematocrit Auto Volume Fraction (Bld) 42.4 % Normal 41.0 - 52.0 [facility] Comment on above: Performed By: #### C BC ####[id number] [place] [address] Hemoglobin mass conc (Bld) 14.7 g/dL Normal 13.5 - 17.5 [facility] Comment on above: Performed By: #### C BC ####[id number] [place] [address] MCHC Auto mass conc (RBC) 34.7 g/dL Normal 32.0 - 36.0 [facility] Comment on above: Performed By: #### C BC ####[id number] [place] [address] MCV Auto Entitic volume (RBC) 91 fL Normal 80 - 100 [facility] Comment on above: Performed By: #### C BC ####[id number] [place] [address] Nucleated RBC/100 WBC Ratio (Bld) 0.2 /100 WBC Normal 0.0-0.0 [facility] Comment on above: Performed By: #### C BC ####[id number] [place] [address] Platelets Auto #/vol (Bld) 282 10*3/uL Normal 150 - 450 [facility] Comment on above: Performed By: #### C BC ####[id number] [place] [address] RBC Auto #/vol (Bld) 4.68 x10E12/L Normal 4.50 - 5.90 [facility] Comment on above: Performed By: #### C BC ####[id number] [place] [address] WBC Auto #/vol (Bld) 12.7 10*3/uL High 4.4 - 11.3 [facility] Comment on above: Performed By: #### C BC ####[id number] [place] [address] COAGULATION SCREENon 018 aPTT Coag time (Bld) 31 s Normal 28 - 38 [facility] Comment on above: Result Comment: Note new reference range as of 03/10/2018. THE APTT IS NO LONGER USED FOR MONITORING UNFRACTIONATED HEPARIN THERAPY. FOR MONITORING HEPARIN THERAPY, USE THE HEPARIN ASSAY. Performed By: #### C OAGS ####[id number] 7[address] INR Coag RelTime (PPP) 1.4 {INR} High 0.9 - 1.1 [facility] Comment on above: Performed By: #### C OAGS ####[id number] 7[address] Prothrombin time (PT) Coag time (PPP) 16.1 s High 9.7 - 12.7 [facility] Comment on above: Result Comment: Note new reference range as of 03/10/2018. Performed By: #### C OAGS ####[id number] [id number] COOX PANEL, ARTERIALon 03-19 DEOXY HGB 3.7 % Normal 0.0 - 5.0 [facility] Comment on above: Performed By: #### C OOXA ####[id number] [id number] Hemoglobin mass conc (Bld) 1.1 % Normal [facility] Comment on above: Result Comment: REF VALUESNONSMOKERS 0.5-1.5%SMOKERS 0.5-10.0% Performed By: #### C OOXA ####[id number] 7377[address] Hemoglobin mass conc (Bld) 14.9 g/dL Normal 13.5 - 17.5 [facility] Comment on above: Performed By: #### C OOXA ####[id number] 7[address] MET HGB 1.2 % Normal 0.0 - 1.5 [facility] Comment on above: Performed By: #### C OOXA ####[id number] 7[address] OXY HGB 93.9 % Low 94.0 - 98.0 [facility] Comment on above: Performed By: #### C OOXA ####[id number] [id number] Clinical Event Note-STS Scor e - Cardiac Surgeryon 03-19-2018 Clinical Event Note-STS Score - Cardiac Surgery Event:Topic: STS Score - Cardiac SurgeryDetails:Procedure: CAB OnlyRisk of Mortality: 1.006%Morbidity or Mortality: 13.941%Long Length of Stay: 4.79%Short Length of Stay: 47.443%Permanent Stroke: 0.962%Prolonged Ventilation: 8.167%DSW Infection: 0.651%Renal Failure: 5.562%Reoperation: 4.472% Provider / Team Contact Information:Provider/Team Contact Info-Pager Number: [phone] cardiac surgery Electronic Signatures:Herminia Kern (PAC) (Signed 19-Mar-2018 18:40)Authored: Event, Provider / Team Contact Information Last Updated: 19-Mar-2018 18:40 by Herminia Kern (PAC) [facility] Consult-Cardiac Surgeryon Consult-Cardiac Surgery Service:Service: Cardiac Surgery Consult:Consult requested by (Attending Name): Dr. 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 Patient reports 2 month h/o intermittent exertional left sided chest painlasting less than 30 min, relieved with rest, with no other associatedsymptoms. He woke up 03/16 at 1AM with chest pressure associated with dyspnea,and his took him to [facility] where he was diagnosed withbilateral PEs, started on heparin gtt, then transferred to [facility]. There, hewas found to have a [...] He reports afamily history significant for [place], [place], CHF, HTN, DM and DLD. He quit [...] above Outside Hospital cardiac work up:CTA at [facility]:Pulmonary emboli involving the bilateral lobar segmental, and severalsubsegmental branches (RUL, RML, RLL, FIDEL, LLL). LHC/cors at [facility] 03/16/18: by Levi PisanoLM: 10-20%LAD prox: 30%LAD mid: 95%Diag 3rd: 99%RCA: 85 %PLV: 50%Circ: 95% TTE at [facility] 03/15/18:EF 60-65%Mild concentric LVHLV wall motion is normalMild LA dilationpseudonormalized LV relaxation, which is associated with grade II/IV or mild tomoderate diastolic dysfunctionMild aortic regurgitation PMH: HTN, HLD, T2DM, Shasta's disease, hypothyroidism, COPD, AKASH on CPAP,prostate ca s/p prostatectomy in 2011, psoriasis, remote hepatitis B, priorGERD, lumbar Degenerative disk disease, arthritis, kidney stones (current,small), cataract, plantar fasciitis PSH: prostatectomy 2012, R cataract surgery, cholecystectomy, appendectomy,sinus surgery, vasectomy, bilat carpal tunnel release surgery, ganglion cystremoval from hands, cystoscopy 2 weeks ago for microscopic hematuria, rootcanal 2 weeks ago. FHx: CAD/[place], cancer, DM, HTN, migraines, CVA Social: former [...] No Known Allergies: Objective: Objective Information: T [id number]/8396% Date/Time03/19 3: 3: 3: 3: 3:42Range(36.6C - 36.6C ) (79 - 79 ) (20 - 20 ) (149 - 173 )/ (83 - 92 ) (96%- 97% ) Pain with Activity reported at 03/19 0:25: 0Pain at Rest reported at 03/19 0:25: 0 Lapanci56/1 0:14: Weight in kg (Weight (kg)) 109.311/1 0:14: Weight in lbs ((lbs)) 95101/1 0:14: BMI (kg/m2) (BMI (kg/m2)) 36.646 Physical [...] Bolus) Injectable: 4000 unit(s) IntraVenous Push Every 8Dvvmu2. Hydrocortisone: 20 mg Oral 2 Times a Day9. Insulin Lispro Mild Corrective Scale: unit(s) SubCutaneous 3 Times a DayBefore Meals10. Levothyroxine: 150 microgram(s) Oral Daily11. Pantoprazole: 40 mg Oral Daily12. Polyethylene Glycol: 17 gram(s) Oral Daily13. rOPINIRole: 2 mg Oral 3 Times a Day PRN Medications --1. Dextrose 50% in Water Injectable: 25 gram(s) IntraVenous Push Every 74Qbkbhrf4. Glucagon Injectable: 1 mg IntraMuscular Every 15 [...] 1 View [Mar 19 2018 9:20AM] [facility]Pulmonary emboli involving the bilateral lobar segmental, and severalsubsegmental branches (RUL, RML, RLL, FIDEL, LLL). [facility]/cors at [facility] 03/16/18: by Levi PisanoLM: 10-20%LAD prox: 30%LAD mid: 95%Diag 3rd: 99%RCA: 85 %PLV: 50%Circ: 95% TTE at [facility] 03/15/18:EF 60-65%Mild concentric LVHLV wall motion is normalMild LA dilationpseudonormalized LV relaxation, which is associated with grade II/IV or mild tomoderate diastolic dysfunctionMild aortic regurgitation Assessment:67 yo WM with no priorhistory of CAD, who has a past medical history of HTN,HLD, T2DM, Shasta's disease, hypothyroidism, COPD, AKASH on CPAP, prostate spring/p prostatectomy in 2011, and psoriasis [facility] for CABG eval. Ptpresented to [facility] with chest pressure and dyspnea. He as found to havebilat PEs, was started on Heparin gtt, and transferred to [facility]. He wasfound to have a troponin leak at 2.25. Cardiology was consulted and the patientwas diagnosed with ACS, NSTEMI. He underwent a TTE and cath. He had normal EF,mild AI, and triple vessel CAD so was transferred to [facility] for CABG eval. Cardiac surgery consulted 03/19 [...] for 81mg aspirin- Shut heparin drip off proposal consultant to OR- Please start or continue beta danica; If unable to tolerate beta blockerplease document reason- please consult Endocrine d/t Brigida's disease- please consult Pulmonary for PE workup Thank you for the consultation. Please call [phone] with any questions or changesin patient condition. Signature/Cosignature/Attestat ion:Provider/Team Contact Info-Pager Numbercardiac surgery [phone] Electronic Signatures:Mary Munroe (SENIOR SYSTEMS ENGINEER-SURGICAL SUPERVISOR) (Signed 19-Mar-2018 18:21)Authored: Service, History of Present Illness, Review Family/Social Historyand ROS, Objective, Assessment/Recommendations,Sig nature/Cosignature/Attestation Kyle Arechiga (SENIOR SYSTEMS ENGINEER-SURGICAL SUPERVISOR) (Signed 19-Mar-2018 08:17)Authored: Service, Allergies, Objective, Assessment/Recommendations Last Updated: 19-Mar-2018 18:21 by Mary Munroe (SENIOR SYSTEMS ENGINEER-SURGICAL SUPERVISOR) Normal [facility] DRUG SCREEN,PAIN MANAGEMENT W/ REFLEXon 03-19-2018 AMPHETAMINE SCREEN,U Negative Normal NEGATIVE [facility] Comment on above: Result Comment: CUTO FF LEVEL: 500 NG/ML Cross-reactivity has been reported with high concentrations of the following drugs: buproprion, chloroquine, chlorpromazine, ephedrine, mephentermine, fenfluramine, phentermine, phenylpropanolamine, pseudoephedrine, and propranolol. Performed By: #### D SPMR ####[id number] [place] [address] BARBITURATES SCREEN,U Negative Normal NEGATIVE [facility] Comment on above: Result Comment: CUTO FF LEVEL: 200 NG/ML Performed By: #### D SPMR ####[id number] [id number] BENZODIAZEPINES SCREEN,U Negative Normal NEGATIVE [facility] Comment on above: Result Comment: CUTO FF LEVEL: 200 NG/MLBenzodiazepine Confirmatory testing has been sent to a reference laboratoryand will be reported separately. Although the benzodiazepine screening testprovides rapid results; the confirmatory test provide the most sensitive andspecific assessment of drug presence or absence in the urine. Performed By: #### D SPMR ####[id number] [place] [address] CANNABINOIDS SCREEN,U Negative Normal NEGATIVE [facility] Comment on above: Result Comment: CUTO FF LEVEL: 50 NG/ML Performed By: #### D SPMR ####[id number] [id number] COCAINE METABOLITE SCREEN,U Negative Normal NEGATIVE [facility] Comment on above: Result Comment: CUTO FF LEVEL: 150 NG/ML Performed By: #### D SPMR ####[id number] [place] [address] DRUG SCREEN COMMENT. SEE BELOW Normal [facility] Comment on above: Result Comment: Drug screen [...] laboratory medicaldirectors. Performed By: #### D SPMR ####[id number] [place] [address] METHADONE SCREEN,U Negative Normal NEGATIVE [facility] Comment on above: Result Comment: CUTO FF LEVEL: 150 NG/ML The metabolite D-wqpnt-uvhiyktsrrhayp (LAAM) is not detected by this method in concentrations that would be found in the urine of patients on LAAM therapy. Performed By: #### D SPMR ####[id number] [place] [address] OPIATES SCREEN,U Negative Normal NEGATIVE [facility] Comment on above: Result Comment: CUTO FF [...] the urine. Performed By: #### D SPMR ####[id number] [place] [address] PCP SCREEN,U Negative Normal NEGATIVE [facility] Comment on above: Result Comment: CUTO FF LEVEL: 25 NG/ML Cross-reactivity has been reported with dextromethorphan. Performed By: #### D SPMR ####[id number] [place] [address] Daily Progress Note-Yann chavez 03-19-2018 Protein mass conc Service: Cardiology Subjective Data:DON ELKINS is a 67 year old Male who is Hospital Day # 2. Additional Information:Received from [facility] with PE and need for CABG eval, hypertensive - Heparin gtt- Stop Metoprolol- Start Carvedilol- Plan for OR with Dr. Gaston early next week Objective Data: Objective Information:T MPSYMkB1Yvhra37.63925597/8797% Date/Time03/19 13: 13: 13: 13: 13:27Range(36.6C - 37C ) (79 - 83 ) (16 - 20 ) (149 - 173 )/ (83 - 92 ) (95% -97% )Highest temp of 37 C was recorded at 03/19 8:29 Pain with Activity reported at 03/19 7:19: 0Pain at Rest reported at 03/19 7:19: 0 Tydcmts90/1 0:14: Weight in kg (Weight (kg)) 109.311/1 0:14: Weight in lbs ((lbs)) 30164/1 0:14: BMI (kg/m2) (BMI (kg/m2)) 36.646 Physical Exam: Constitutional: Resting in bed, NADHead/Neck: No JVDRespiratory/Thorax: CTABCardiovascular: RRR, S1 G8Nqthmlsawhwrrybz: soft, NT/NDExtremities: Right wrist site of catheterization intact, normal pulse. Noperipheral edemaNeurological: alert and oriented c7Uytjjusdgjtss: Appropriate mood and behaviorSkin: psoriasis plaque over [...] Bolus) Injectable: 4000 unit(s) IntraVenous Push Every 1Uatgq9. Hydrocortisone: 20 mg Oral 2 Times a [...] Water Injectable: 25 gram(s) IntraVenous Push Every 97Wlhmrwq3. Glucagon Injectable: 1 mg IntraMuscular Every 15 [...] -0.5Bicarbonate, Calculated, Arterial 24.2 Glucose_POCT Trending View Bushqj06-Zmk-3754 13:58:00 19-Mar-2018 08:27:00Glucose-JNVE634 H 172 H Drug Screen, Pain Management [...] NEGATIVE CUTOFF LEVEL: 150 NG/ML The metabolite M-vohox-ypydavxmnnebxk (LAAM) is not detected by this method [...] Urine YELLOW Reference Range: STRAW,YELLOWAppearance, Urine CLEARSpecific [place], Urine 1.013pH, Urine 6.0Protein, Urine NEGATIVEGlucose, Urine [...] 240 All ranges are based on fasting [facility]pHDL Cholesterol, Serum 44.5 . AGE VERY [...] A4C: 17.4cm2LA Area A2C: 14.2 cm2LA [place] A4C: 6.0 cmLA [place] A2C: 4.7 cmLA Volume Index: 15.2 ml/m2RA VOLUME BY A/L METHOD: Normal Ranges:RA Area A4C: 12.8 oi8V-EYQC MEASUREMENTS: Normal Ranges:Ao Root: 2.90 cm (2.0-3.7cm)LAs: [...] T2DM, Addisson's, GERD, prostate ca s/p prostatectomy [id number], hypothyroidism, psoriasis, and most recently diagnosed with a PE andmultivessel CAD transferred to medicine at [facility] from [facility] for CABG eval. PE- unprovoked [...] on PPICode status: Full Electronic Signatures:Vito Patino (SENIOR SYSTEMS ENGINEER-SURGICAL SUPERVISOR) (Signed 19-Mar-2018 15:16)Authored: Service, Subjective Data, Objective Data, Assessment and Plan,Signature/Cosignature/Att estationMor Calderon) (Signed 19-Mar-2018 15:57)Co-Signer: Service, Subjective Data, Objective Data, Assessment and Plan,Signature/Cosignature/Att estation Last Updated: 19-Mar-2018 15:57 by Mor Calderon) [facility] Discharge Planning Noteon Discharge Planning Note Discharge Needs Assessment: Discharge Planning Assessment [id number] Discharge Planning Assessment Completed Breana Villalobos RN Care [phone] Readmission Within the Last 30 Daysno previous admission in last 30 days Primary Care PhysicianUnknarcisown PCP at [facility] Patient Learning: Factors that Impact Ability to Learnlearning disabilities, visualproblems(1) Other Factors: Functional Screen: In the recent/past 2-4 weeks, patient or family havenoticedno issues that require a rehabilitation consult at this time(2) Discharge Planning:Discharge Plannin03/19/18 0648: Patient admitted to LT[facility] from [facility] with 4x vesselblockage and CABG consult. recent partial root canal begun this past Fridaybut no permanent cap placed yet. Patient lives at home with and pets. Nolines or drips on admission, will restart heparin at 0900 this morning, patientwas given 10mg Eliquis at [facility] at 9pm 03/18/18. no pain onadmission. Jeannie Shelton RN 03-19-18 1040 Pbx Operator Note: Met with patient to discuss [...] PCP, cannot recall name. Preferred pharmacy is [facility].Preferred pharmacy added to outpatient medication review. Patient states nodifficulty obtaining or paying for medications. Patient is not medically readyfor discharge. stars coordinator will follow. Clarisa Villalobos RN Care [phone] 03-19-18 1530 Pbx Operator Note: Patient discussed during interdisciplinaryrounds. Plan for OR next week. stars coordinator will follow. Clarisa Villalobos RNCare Coordinator [phone] 03-24-18 1435 Pbx Operator Note: Patient discussed during interdisciplinaryrounds. Plan for OR friday. stars coordinator will follow. Clarisa Villalobos RNCare Coordinator [phone] 03-27-18 1500 Pbx Operator Note: Patient discussed during interdisciplinaryrounds. Plan for CABG friday. Clarisa Villalobos RN Pbx Operator [phone] Pbx Operator Note: 04/02/2018. Met with patient to discuss dischargeplanning. Patient is a 67 year old male from home s/p cardiac surgery.Patient will require home care at discharge. Patient provided a [facility] after heart Surgery booklet and a home acre providers list. Willcontinue to monitor patient for all home going needs. Mary Elder RN CC Pbx Operator Note 04/07/18Met with patient to finalize [...] has all scripts andbelongings. [facility] via wheelchair. Mary Smith RN. Final Disposition/Discharge:Disposit ion/Discharge Information: Discharge/Transfer Information: Discharge/Transfer Date/[id number] 15:33 Discharged Accompanied Byspouse; family member Discharge Modewheelchair Transportation Methodprivate car Valuables/Medications/Belongin gs Returnedyes Belongings Commentpt has all belongings [facility] Electronic Signatures:Jeannie Shelton (RN) (Signed 19-Mar-2018 06:51)Authored: [...] Screen - Adult 03/19/2018 12:25 AM Normal [facility] EMR ADDONon 03-19-2018 ADDON CONFIRMATION REQUEST REC'D Normal [facility] Comment on above: Performed By: #### C BC ####[id number] [place] [address] ADDON CONFIRMATION REQUEST REC'D Normal [facility] Comment on above: Performed By: #### E MRAD ####NO LOCATION NEEDED ADDON CONFIRMATION REQUEST REC'D Normal [facility] Comment on above: Performed By: #### E MRAD ####NO LOCATION NEEDED GLUCOSE-POCTon 03-19-2018 Glucose mass conc 308 mg/dL High 74 - 99 [facility] Comment on above: Performed By: #### C BC ####[id number] [place] [address] Glucose mass conc 226 mg/dL High 74 - 99 [facility] Comment on above: Performed By: #### C BC ####[id number] [place] [address] Glucose mass conc 175 mg/dL High 74 - 99 [facility] Comment on above: Performed By: #### G BECKY ####[id number] [place] [address] Glucose mass conc 172 mg/dL High 74 - 99 [facility] Comment on above: Performed By: #### G BECKY ####[id number] [place] [address] HEMOGLOBIN A1Con 03-19-2018 Glucose mass conc 180 mg/dL Normal [facility] Comment on above: Performed By: #### E MRAD ####NO LOCATION NEEDED Hemoglobin A1c/Hemoglobin.to romy mass fraction (Bld) 7.9 % Normal [facility] Comment on above: Result Comment: Diag nosis of Diabetes-Adults Non-Diabetic: < or = 5.6% Increased risk for developing diabetes: 5.7-6.4% Diagnostic of diabetes: > or = 6.5%. Monitoring of Diabetes Age (y) Therapeutic Goal (%) Adults: >18 <7.0 Pediatrics: 13-18 <7.5 7-12 <8.0 0- 6 7.5-8.5 [place] [employer]. Diabetes Care 33(S1), May 2009. Performed By: #### E MRAD ####NO LOCATION NEEDED HEPARIN ASSAY,UFHon 03-19-20 18 HEPARIN ASSAY,UFH 0.4 IU/mL Normal [facility] Comment on above: Result Comment: The therapeutic reference range for UFH may be either 0.3-0.6 IU/mL or 0.3-0.7 IU/mL based on the clinical setting for anticoagulant therapy and the associated nomogram used. For heparin dosing guidelines based on clinical scenario and Heparin Assay results, please refer to local Pharmacy and the [facility] Guidelines for Anticoagulation therapy available on the [facility] intranet at:[email or web address]_Guidelines_for_[email or web address].aspx Performed By: #### E MRAD ####NO LOCATION NEEDED HEPARIN ASSAY,UFH 0.6 IU/mL Normal [facility] Comment on above: Result Comment: The therapeutic reference range for UFH may be either 0.3-0.6 IU/mL or 0.3-0.7 IU/mL based on the clinical setting for anticoagulant therapy and the associated nomogram used. For heparin dosing guidelines based on clinical scenario and Heparin Assay results, please refer to local Pharmacy and [facility] Guidelines for Anticoagulation therapy available on the [facility] intranet at:[email or web address]_Guidelines_for_Anticoagu.aspx Performed By: #### E MRAD ####NO LOCATION NEEDED HEPATIC FUNCTION PANELon ALP enzyme act/vol 50 U/L Normal 33 - 136 [facility] Comment on above: Performed By: #### C BC ####[id number] [place] [address] ALT enzyme act/vol 103 U/L High 10 - 52 [facility] Comment on above: Result Comment: Vivien ents treated with Sulfasalazine may generate falsely decreased results for ALT. Performed By: #### C BC ####[id number] [place] [address] AST enzyme act/vol 75 U/L High 9 - 39 [facility] Comment on above: Performed By: #### C BC ####[id number] [place] [address] Bilirubin mass conc 0.9 mg/dL Normal 0.0 - 1.2 [facility] Comment on above: Performed By: #### C BC ####[id number] [place] [address] Bilirubin.direct mass conc 0.2 mg/dL Normal 0.0 - 0.3 [facility] Comment on above: Performed By: #### C BC ####[id number] [place] [address] Protein mass conc 6.6 g/dL Normal 6.4 - 8.2 [facility] Comment on above: Performed By: #### C BC ####[id number] [place] [address] Albumin mass conc 4.1 g/dL Normal 3.4 - 5.0 [facility] Comment on above: Performed By: #### C BC ####[id number] [place] [address] Performed By: #### R ENAL ####[id number] [place] [address] History and Physical-( Night float admission note )on 03-19-2018 History and Physical-( Nightfloat admission note ) History of Present Illness:Medical Student:Medical Student: Nightfloat admission note Admission Reason: Transfer from [facility] for CABG evalHPI:CC:Transfered from CABG eval HPI:Mr. Elkins is a 67 yo M with HTN, DLD, T2DM, Addisson's, GERD, prostate ca s/pprostatectomy in 2011, hypothyroidism, psoriasis transferred to medicine at [facility] from [facility] on 03/18 for CABG eval Patient reports 2 month h/o intermittent exertional left sided chest painlasting less than 30 min, relieved with rest, with no other associatedsymptoms. He woke up 03/16 at 1AM with chest pressure associated with dyspnea,and his took him to [facility] where he was diagnosed with a PE,started on heparin gtt, then transferred to [facility]. There, hewas found to have [...] He reports afamily history significant for [place], [place], CHF, HTN, DM and DLD. He quit years ago. Has an occasional beer, and denies any drug use. 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 12 points ROS obtained and negative unless otherwise stated above Prior cardiac work up. CTA at [facility]:Pulmonary emboli involving the bilateral lobar segmental, and severalsubsegmental branches (RUL, RML, RLL, FIDEL, LLL). LHC/cors at [facility]:LAD prox: 30%LAD mid: 95%Diag 3rd: 99%RCA: 85 %PLV: 50%Circ: 95% TTE at [facility]:EF 60-65%Mild LA dialtionNo valvular abnormalities PMH; [...] day (at bedtime). Objective: Objective Information: T BXXGNaJ8Zksgp33.03234364/9297% Date/Time03/18 23: 23: 23: 0:0503/18 23:30Range(36.6C - 36.6C ) (79 - 79 ) (20 - 20 ) (173 - 173 )/ (92 - 92 ) (97%- 97% ) Dzyzazp78 0:14: Weight in kg (Weight (kg)) 109.311/1 0:14: Weight in lbs ((lbs)) 31917/ 0:14: BMI (kg/m2) (BMI (kg/m2)) 36.646 Physical [...] Water Injectable: 25 gram(s) IntraVenous Push Every 36Edyxlbg5. Glucagon Injectable: 1 mg IntraMuscular Every 15 Minutes Recent Lab Results: Results:pending Radiology Results: Results:pending Assessment and Plan:Assessment:67 yo M with HTN, DLD, T2DM, Addisson's, GERD, prostate ca s/p prostatectomy [id number], hypothyroidism, psoriasis, and most recently diagnosed with a PE andmultivessel CAD transferred to medicine at [facility] from [facility] on03/18 for CABG eval. Acute [...] patient (as noted in the above attestation) [id number] Provider Inpatient Certification StatementI certify this patientsneed [...] Updated: 19-Mar-2018 15:57 by Mor Calderon) Normal [facility] LIPID PANEL (CORONARY RISK 2 )on 03-19-2018 Cholesterol in HDL mass conc 44.5 mg/dL Normal [facility] Comment on above: Result Comment: . AG E VERY LOW LOW NORMAL HIGH 0-19 Y < 35 < 40 40-45 ---- 20-24 Y ---- < 40 >45 ---- >24 Y ---- < 40 40-60 >60. Performed By: #### L IPID ####[id number] [place] [address] Cholesterol in LDL mass conc 82 mg/dL Normal 0 - 99 [facility] Comment on above: Result Comment: . NE AR BORD AGE DESIRABLE OPTIMAL HIGH HIGH VERY HIGH 0-19 Y 0 - 109 --- 110-129 >/= 130 ---- 20-24 Y 0 - 119 --- 120-159 >/= 160 ---- >24 Y 0 - 99 100-129 130-159 160-189 >/=190. Performed By: #### L IPID ####[id number] [place] [address] Cholesterol in VLDL mass conc 28 mg/dL Normal 0 - 40 [facility] Comment on above: Performed By: #### L IPID ####[id number] [place] [address] Cholesterol mass conc 155 mg/dL Normal 0 - 199 [facility] Comment on above: Result Comment: . AG [...] Metamizole dosing. Performed By: #### L IPID ####[id number] [place] [address] Cholesterol.total /Cholesterol in HDL mass ratio 3.5 {ratio} Normal [facility] Comment on above: Result Comment: REF VALUESDESIRABLE < 3.4HIGH RISK > 5.0 Performed By: #### L IPID ####[id number] [place] [address] Triglyceride mass conc 141 mg/dL Normal 0 - 149 [facility] Comment on above: Result Comment: . AG [...] Metamizole dosing. Performed By: #### L IPID ####[id number] [place] [address] Patient Profile - Adult v2on 03-19-2018 Protein mass conc Profile:Initial Info :How to be AddressedLarrySpoken Language PreferredEnglishSource of InformationpatientAre you currently using the Personal Electronic Health Record or [facility]AM[facility] VALLEY HOSPITALyetated Reason for Admissionheart blocks and blood clot in my lungsArrived FromhospitalPatient Belongingsremains with patientPatient Belongings Remaining with Patientcell phone/electronics; clothing;vision aids; medical coding manager; medication(s)Medications Brought to HospitalyesMedication Dispositionsent home with family General Health:Weight in kg109.3 kilogram(s)Weight in ala885 pound(s)Height in feet5 feetHeight in inches8 inch(es)Height [...] otherLives Withsignificant otherLiving ArrangementshouseResource/Envi ronmental ConcernsnoneAnticipated Transition Toinat[facility] rehabilitation facilityServices [facility]ated at [facility]; rehabilitation servicesSignificant IndicatorsComplete Information Review: Allergies, Home Meds and Significant Events have been Reviewed and Verifiedwith Patient/Familyno ALLERGY, INTOLERANCE, ADVERSE EVENT: Allergies: No Known Allergies: Active Electronic Signatures:Jeannie Shelton (RN) (Signed 19-Mar-2018 00:25)Authored: Profile, Additional Information Last Updated: 19-Mar-2018 00:25 by Jeannie Shelton (ANDREA) Normal [facility] RENAL FUNCTION PANELon 03-19 Albumin mass conc 3.9 g/dL Normal 3.4 - 5.0 [facility] Comment on above: Performed By: #### C BC ####[id number] [place] [address] Anion gap 3 molar conc 16 mmol/L Normal 10 - 20 [facility] Comment on above: Performed By: #### C BC ####[id number] [place] [address] Calcium mass conc 9.4 mg/dL Normal 8.6 - 10.6 [facility] Comment on above: Performed By: #### C BC ####[id number] [place] [address] Chloride molar conc 102 mmol/L Normal 98 - 107 [facility] Comment on above: Performed By: #### C BC ####[id number] [place] [address] Performed By: #### R ENAL ####[id number] [place] [address] Creatinine mass conc 1.36 mg/dL High 0.50 - 1.30 [facility] Comment on above: Performed By: #### C BC ####[id number] [place] [address] GFR- AM. 63 mL/min/1.73m2 Normal >60 [facility] Comment on above: Result Comment: CALC ULATIONS OF ESTIMATED GFR ARE PERFORMED USING THE MDRD STUDY EQUATION FOR THE IDMS-TRACEABLE CREATININE METHODS. CLIN CHEM 2007;53:766-72 Performed By: #### C BC ####[id number] [place] [address] GFR-NON AM. 52 mL/min/1.73m2 Abnormal >60 [facility] Comment on above: Performed By: #### C BC ####[id number] [place] [address] Glucose mass conc 229 mg/dL High 74 - 99 [facility] Comment on above: Performed By: #### C BC ####[id number] [place] [address] HCO3 molar conc (Bld) 23 mmol/L Normal 21 - 32 [facility] Comment on above: Performed By: #### C BC ####[id number] [place] [address] Performed By: #### R ENAL ####[id number] [place] [address] Phosphate mass conc 3.6 mg/dL Normal 2.5 - 4.9 [facility] Comment on above: Result Comment: The performance characteristics of phosphorus testing in heparinized plasma have been validated by the individual laboratory site where testing is performed. Testing on heparinized plasma is not approved by the FDA; however, such approval is not necessary. Performed By: #### C BC ####[id number] [place] [address] Potassium molar conc 3.9 mmol/L Normal 3.5 - 5.3 [facility] Comment on above: Performed By: #### C BC ####[id number] [place] [address] Sodium molar conc 137 mmol/L Normal 136 - 145 [facility] Comment on above: Performed By: #### C BC ####[id number] [place] [address] Urea nitrogen mass conc 25 mg/dL High 6 - 23 [facility] Comment on above: Performed By: #### C BC ####[id number] [place] [address] Anion gap 3 molar conc 17 mmol/L Normal 10 - 20 [facility] Comment on above: Performed By: #### R ENAL ####[id number] [place] [address] Calcium mass conc 9.2 mg/dL Normal 8.6 - 10.6 [facility] Comment on above: Performed By: #### R ENAL ####[id number] [place] [address] Creatinine mass conc 1.42 mg/dL High 0.50 - 1.30 [facility] Comment on above: Performed By: #### R ENAL ####[id number] [place] [address] GFR- AM. 61 mL/min/1.73m2 Normal >60 [facility] Comment on above: Result Comment: CALC ULATIONS OF ESTIMATED GFR ARE PERFORMED USING THE MDRD STUDY EQUATION FOR THE IDMS-TRACEABLE CREATININE METHODS. CLIN CHEM 2007;53:766-72 Performed By: #### R ENAL ####[id number] [place] [address] GFR-NON AM. 50 mL/min/1.73m2 Abnormal >60 [facility] Comment on above: Performed By: #### R ENAL ####[id number] [place] [address] Glucose mass conc 206 mg/dL High 74 - 99 [facility] Comment on above: Performed By: #### R ENAL ####[id number] [place] [address] Phosphate mass conc 3.5 mg/dL Normal 2.5 - 4.9 [facility] Comment on above: Result Comment: The performance characteristics of phosphorus testing in heparinized plasma have been validated by the individual laboratory site where testing is performed. Testing on heparinized plasma is not approved by the FDA; however, such approval is not necessary. Performed By: #### R ENAL ####[id number] [place] [address] Potassium molar conc 4.1 mmol/L Normal 3.5 - 5.3 [facility] Comment on above: Performed By: #### R ENAL ####[id number] [place] [address] Sodium molar conc 138 mmol/L Normal 136 - 145 [facility] Comment on above: Performed By: #### R ENAL ####[id number] [place] [address] Urea nitrogen mass conc 23 mg/dL Normal 6 - 23 [facility] Comment on above: Performed By: #### R ENAL ####[id number] [place] [address] REQUEST-LEUKOREDUCED RED HERI LSon 03-19-2018 REQUEST-LEUKOREDU TATUM RED CELLS ORDER RECD Normal [facility] Comment on above: Performed By: #### E MRAD ####NO LOCATION NEEDED STAPH/MRSA SCREENon 03-19-20 STAPH/MRSA SCREEN PATIENT: DON ELKINS LOCATION: [address]#: [id number] : 50 AGE: SEX: M ORDERED BY: FESTUS ARECHIGA: ANTERIOR NARES COLLECTED: 03/19/18 09:34ANTIBIOTICS AT JIMENA.: RECEIVED : 03/19/18 11:09SITE: NARES R E S U L T S STAPH/MRSA SCREEN FINAL 03/20/18 12:15 NO Staphylococcus aureus ISOLATED. Normal [facility] Comment on above: Performed By: #### C OAGS ####[id number] [place] [address] TH CHEST 1 VIEWon 03-19-2018 TH CHEST 1 VIEW Name: DON ELKINS STUDY:TH CHEST 1 VIEW; 03/19/2018 6:21 am INDICATION:Signs/Symptoms: admisison Xray. COMPARISON:None ORDERING CLINICIAN:JIM TITUS FINDINGS:The cardiomediastinal silhouette is within normal limits. There is no focal consolidation, edema or pneumothorax. No sizeablepleural effusion. No acute osseous abnormality. IMPRESSION:1. No radiographic evidence of acute cardiopulmonary process. Electronically signed by: STANISLAV RADFORD MD Normal [facility] TH CHEST 2 VIEW PA AND LATon 03-19-2018 TH CHEST 2 VIEW PA AND LAT Name: DON ELKINS STUDY:CHEST 2 VIEW PA AND LAT; 03/19/2018 12:56 pm INDICATION:Signs/Symptoms: preop cabg ROOM [id number]. COMPARISON:Chest radiograph from 03/19/2018 ORDERING CLINICIAN:KYLE ARECHIGA FINDINGS:The cardiomediastinal silhouette is stable and within normal limits. There is no focal consolidation, edema or pneumothorax. No sizeablepleural effusion. No acute osseous abnormality. IMPRESSION:1. No radiographic evidence of acute cardiopulmonary process. Electronically signed by: STANISLAV RADFORD MD Normal [facility] TSHon 03-19-2018 Thyrotropin Qn 2.51 m[IU]/L Normal 0.44 - 3.98 [facility] Comment on above: Result Comment: TSH testing is performed using different testing methodology at [facility] than at other [facility]. Direct result comparisons should only be made within the same method.. Patients receiving more than 5 mg/day of biotin may have interference in test results. A sample should be taken no sooner than eight hours after previous dose. Contact [phone] for additional information. Performed By: #### T SH2 ####[id number] [id number] URINALYSISon 03-19-2018 APPEARANCE CLEAR Normal CLEAR [facility] Comment on above: Performed By: #### U A ####[id number] [place] [address] BILIRUBIN Negative Normal NEGATIVE [facility] Comment on above: Performed By: #### U A ####[id number] [place] [address] BLOOD Negative Normal NEGATIVE [facility] Comment on above: Performed By: #### U A ####[id number] [place] [address] COLOR YELLOW Normal STRAW,YELLOW [facility] Comment on above: Performed By: #### U A ####[id number] [place] [address] GLUCOSE Negative Normal NEGATIVE [facility] Comment on above: Performed By: #### U A ####[id number] [place] [address] KETONES Negative Normal NEGATIVE [facility] Comment on above: Performed By: #### U A ####[id number] [place] [address] LEUKOCYTE ESTERASE Negative Normal NEGATIVE [facility] Comment on above: Performed By: #### U A ####[id number] [place] [address] NITRITE Negative Normal NEGATIVE [facility] Comment on above: Performed By: #### U A ####[id number] [place] [address] pH 6.0 Normal 5.0 - 8.0 [facility] Comment on above: Performed By: #### U A ####[id number] [place] [address] Protein mass conc Negative Normal NEGATIVE [facility] Comment on above: Performed By: #### U A ####[id number] [place] [address] SPECIFIC GRAVITY 1.013 Normal 1.005 - 1.035 [facility] Comment on above: Performed By: #### U A ####[id number] [place] [address] UROBILINOGEN 2.0 mg/dL High 0.0 - 1.9 [facility] Comment on above: Result Comment: SOME PIGMENTS AND MEDICATIONS MAY CAUSE AFALSE POSITIVE UROBILINOGEN Performed By: #### U A ####[id number] [place] [address] URINE CULTURE,BACTERIALon URINE CULTURE,BACTERIAL PATIENT: DON ELKINS LOCATION: [address]#: [id number] : 50 AGE: SEX: M ORDERED BY: FESTUS ARECHIGA: URINE COLLECTED: 03/19/18 10:09ANTIBIOTICS AT JIMENA.: RECEIVED : 03/19/18 13:55SITE: Clean Catch/Voided R E S U L T S URINE CULTURE,BACTERIAL FINAL 03/20/18 08:55 NO SIGNIFICANT GROWTH. Normal [facility] Comment on above: Performed By: #### C BC ####[id number] [place] [address] Vital Signs Date Time Vital Sign Value Performing Clinician Facility 03-16-2024 09:42-0400 Body height 172.72 cm [facility] 03-16-2024 09:42-0400 Body mass index (BMI) [Ratio] 35.9 kg/m2 [facility] 03-16-2024 09:42-0400 Body weight 107.04 kg [facility] 03-16-2024 09:42-0400 Diastolic blood pressure 74 mm[Hg] [facility] 03-16-2024 09:42-0400 Heart rate 76 /min [facility] 03-16-2024 09:42-0400 Systolic blood pressure 146 mm[Hg] [facility] 01-29-2024 15:05-0400 Body height 172.72 cm [facility] 01-29-2024 15:05-0400 Body mass index (BMI) [Ratio] 35.6 kg/m2 [facility] 01-29-2024 15:05-0400 Body temperature 97.2 [degF] [facility] 01-29-2024 15:05-0400 Body weight 106.25 kg [facility] 01-29-2024 15:05-0400 Diastolic blood pressure 78 mm[Hg] [facility] 01-29-2024 15:05-0400 Heart rate 69 /min [facility] 01-29-2024 15:05-0400 Respiratory rate 16 /min [facility] 01-29-2024 15:05-0400 SaO2% (BldA) [Mass fraction] 96 % [facility] 01-29-2024 15:05-0400 Systolic blood pressure 134 mm[Hg] [facility] 08-14-2023 12:06-0400 Body height 172.72 cm [facility] 08-14-2023 12:06-0400 Body mass index (BMI) [Ratio] 35.2 kg/m2 [facility] 08-14-2023 12:06-0400 Body temperature 96.9 [degF] [facility] 08-14-2023 12:06-0400 Body weight 105.23 kg [facility] 08-14-2023 12:06-0400 Diastolic blood pressure 80 mm[Hg] [facility] 08-14-2023 12:06-0400 Heart rate 76 /min [facility] 08-14-2023 12:06-0400 Respiratory rate 16 /min [facility] 08-14-2023 12:06-0400 SaO2% (BldA) [Mass fraction] [...] Body height 172.72 cm Frederick Geovanni Other [facility] Other 01-16-2023 15:00-0400 Body mass index (BMI) [Ratio] 33.96 kg/m2 Frederick Geovanni Other [facility] Other 01-16-2023 15:00-0400 Body temperature 97.3 [degF] Frederick Geovanni Other [facility] Other 01-16-2023 15:00-0400 Body weight 101.33 kg Frederick Geovanni Other [facility] Other 01-16-2023 15:00-0400 Diastolic blood pressure 64 mm[Hg] Frederick Geovanni Other [facility] Other 01-16-2023 15:00-0400 Respiratory rate 18 /min Frederick Geovanni Other [facility] Other 01-16-2023 15:00-0400 SaO2% (BldA) [Mass fraction] 97 % Frederick Geovanni Other [facility] Other 01-16-2023 15:00-0400 Systolic blood pressure 130 mm[Hg] Frederick Geovanni Other [facility] Other 06-20-2022 16:00-0500 Body height 172.72 cm Frederick Geovanni Other [facility] Other 06-20-2022 16:00-0500 Body mass index (BMI) [Ratio] 33.9 kg/m2 Frederick Geovanni Other [facility] Other 06-20-2022 16:00-0500 Body temperature 97 [degF] Frederick Geovanni Other [facility] Other 06-20-2022 16:00-0500 Body weight 101.15 kg Frederick Geovanni Other [facility] Other 06-20-2022 16:00-0500 Diastolic blood pressure 80 mm[Hg] Frederick Geovanni Other [facility] Other 06-20-2022 16:00-0500 Respiratory rate 18 /min Frederick Geovanni Other [facility] Other 06-20-2022 16:00-0500 SaO2% (BldA) [Mass fraction] 91 % Frederick Geovanni Other [facility] Other 06-20-2022 16:00-0500 Systolic blood pressure 132 mm[Hg] Frederick Geovanni Other [facility] Other 11-22-2021 16:40-0400 Body height 172.72 cm Frederick Geovanni Other [facility] Other 11-22-2021 16:40-0400 Body mass index (BMI) [Ratio] 34.18 kg/m2 Frederick Geovanni Other [facility] Other 11-22-2021 16:40-0400 Body temperature 96.7 [degF] Frederick Geovanni Other [facility] Other 11-22-2021 16:40-0400 Body weight 101.97 kg Frederick Geovanni Other [facility] Other 11-22-2021 16:40-0400 Diastolic blood pressure 76 mm[Hg] Frederick Geovanni Other [facility] Other 11-22-2021 16:40-0400 Respiratory rate 18 /min Frederick Geovanni Other [facility] Other 11-22-2021 16:40-0400 SaO2% (BldA) [Mass fraction] 97 % Frederick Geovanni Other [facility] Other 11-22-2021 16:40-0400 Systolic blood pressure 110 mm[Hg] Frederick Geovanni Other [facility] Other 05-31-2021 16:00-0500 Body height 172.72 cm Frederick Geovanni Other [facility] Other 05-31-2021 16:00-0500 Body mass index (BMI) [Ratio] 35.35 kg/m2 Frederick Geovanni Other [facility] Other 05-31-2021 16:00-0500 Body temperature 96.9 [degF] Frederick Geovanni Other [facility] Other 05-31-2021 16:00-0500 Body weight 105.46 kg Frederick Geovanni Other [facility] Other 05-31-2021 16:00-0500 Diastolic blood pressure 70 mm[Hg] Frederick Geovanni Other [facility] Other 05-31-2021 16:00-0500 Respiratory rate 18 /min Frederick Geovanni Other [facility] Other 05-31-2021 16:00-0500 SaO2% (BldA) [Mass fraction] 97 % Frederick Geovanni Other [facility] Other 05-31-2021 16:00-0500 Systolic blood pressure 110 mm[Hg] Frederick Geovanni Other [facility] Other 04-13-2019 06:55-0500 Body Temperature 98.01 [facility]degF[facility] [place] 04-13-2019 06:55-0500 BP Diastolic 89 mm[Hg] [facility] , [place] 04-13-2019 06:55-0500 BP Systolic 164 mm[Hg] [facility] , [place] 04-13-2019 06:55-0500 Pulse (Heart Rate) 82 /min [facility], [place] 04-13-2019 06:55-0500 Pulse Oximetry 96 % [facility] , [place] 04-13-2019 06:55-0500 Respiratory Rate 17 /min [facility], [place] 04-13-2019 05:57-0500 BMI (Body Mass Index) 39.2 kg/m2 [facility], [place] 04-13-2019 05:57-0500 Body weight 113.54 kg [facility] , [place] 04-09-2019 16:35-0500 Height 170.2 cm [facility] , [place] 04-09-2019 05:19-0500 BMI (Body Mass Index) 39.19 kg/m2 [facility], [place] 04-09-2019 05:19-0500 Body weight 113.5 kg [facility] , [place] 04-09-2019 03:30-0500 BP Diastolic 44 mm[Hg] [facility] , [place] 04-09-2019 03:30-0500 BP Systolic 126 mm[Hg] [facility] [place] 04-09-2019 03:30-0500 Pulse (Heart Rate) 92 /min [facility] [place] 04-09-2019 03:30-0500 Pulse Oximetry 98 % [facility] , [place] 04-09-2019 00:52-0500 Body Temperature 98.2 [degF] [facility] [place] 04-09-2019 00:52-0500 Respiratory Rate 18 /min [facility] [place] 04-07-2019 18:15-0500 Height 170.2 cm [facility] [place] 04-05-2019 14:57-0500 BP Diastolic 52 mm[Hg] [facility] , [place] 04-05-2019 14:57-0500 BP Systolic 94 mm[Hg] [facility] , [place] 04-05-2019 14:57-0500 Pulse (Heart Rate) 90 /min [facility], [place] 04-05-2019 14:57-0500 Pulse Oximetry 94 % [facility] , [place] 04-05-2019 14:57-0500 Respiratory Rate 16 /min [facility], [place] 04-05-2019 14:06-0500 Body Temperature 98.2 [degF] [facility], [place] 04-05-2019 08:44-0500 BMI (Body Mass Index) 46.66 kg/m2 [facility], [place] 04-05-2019 08:44-0500 Body weight 112.95 kg [facility] , [place] 04-05-2019 08:44-0500 Height 155.6 cm [facility] , [place] 03-30-2019 12:44-0500 BMI (Body Mass Index) 46.66 kg/m2 [address], [place] 03-30-2019 12:44-0500 Body Temperature 96.91 [degF] [address], [place] 03-30-2019 12:44-0500 Body weight 112.95 kg [facility] [place] , [place] 03-30-2019 12:44-0500 BP Diastolic 75 mm[Hg] [facility] [place] , [place] 03-30-2019 12:44-0500 BP Systolic 152 mm[Hg] [facility] 1 [facility] [place] , [place] 03-30-2019 12:44-0500 Height 155.6 cm [facility] [place] , [place] 03-30-2019 12:44-0500 Pulse (Heart Rate) 77 /min [facility] [place], [place] 03-30-2019 12:44-0500 Pulse Oximetry 98 % [facility] [place] , [place] 03-30-2019 12:44-0500 Respiratory Rate 16 /min [facility] [place] 04-02-2018 04:55-0500 Body temperature 37.0 degrees [facility] Comment on above: Result Comment: NOTE: PATIENT RESULTS AR E NOT CORRECTED FOR TEMPERATURE. Performed By: #### E MRAD ####NO LOCATION NEEDED 04-01-2018 19:29-0500 Body temperature 37.0 degrees [facility] Comment on above: Result Comment: NOTE: PATIENT RESULTS AR E NOT CORRECTED FOR TEMPERATURE. Performed By: #### E MRAD ####NO LOCATION NEEDED 04-01-2018 14:43-0500 Body temperature 37.0 degrees [facility] Comment on above: Result Comment: NOTE: PATIENT RESULTS AR E NOT CORRECTED FOR TEMPERATURE. Performed By: #### E MRAD ####NO LOCATION NEEDED 04-01-2018 11:59-0500 Body temperature 37.0 degrees [facility] Comment on above: Result Comment: NOTE: PATIENT RESULTS AR E NOT CORRECTED FOR TEMPERATURE. Performed By: #### E MRAD ####NO LOCATION NEEDED 04-01-2018 06:26-0500 Body temperature 37.0 degrees [facility] Comment on above: Result Comment: NOTE: PATIENT RESULTS AR E NOT CORRECTED FOR TEMPERATURE. Performed By: #### E MRAD ####NO LOCATION NEEDED 04-01-2018 05:32-0500 Body temperature 37.0 degrees [facility] Comment on above: Result Comment: NOTE: PATIENT RESULTS AR E NOT CORRECTED FOR TEMPERATURE. Performed By: #### E MRAD ####NO LOCATION NEEDED 04-01-2018 04:04-0500 Body temperature 37.0 degrees [facility] Comment on above: Result Comment: NOTE: PATIENT RESULTS AR E NOT CORRECTED FOR TEMPERATURE. Performed By: #### E MRAD ####NO LOCATION NEEDED 04-01-2018 00:50-0500 Body temperature 37.0 degrees C [facility] Comment on above: Result Comment: NOTE: PATIENT RESULTS AR E NOT CORRECTED FOR TEMPERATURE. Performed By: #### E MRAD ####NO LOCATION NEEDED 03-31-2018 23:29-0500 Body temperature 37.0 degrees C [facility] Comment on above: Result Comment: NOTE: PATIENT RESULTS AR E NOT CORRECTED FOR TEMPERATURE. Performed By: #### E MRAD ####NO LOCATION NEEDED 03-31-2018 20:21-0500 Body temperature 37.0 degrees C [facility] Comment on above: Result Comment: NOTE: PATIENT RESULTS AR E NOT CORRECTED FOR TEMPERATURE. Performed By: #### E MRAD ####NO LOCATION NEEDED 03-31-2018 19:08-0500 Body temperature 37.0 degrees C [facility] Comment on above: Result Comment: NOTE: PATIENT RESULTS AR E NOT CORRECTED FOR TEMPERATURE. Performed By: #### E MRAD ####NO LOCATION NEEDED 03-31-2018 17:37-0500 Body temperature 37.0 degrees C [facility] Comment on above: Result Comment: NOTE: PATIENT RESULTS AR E NOT CORRECTED FOR TEMPERATURE. Performed By: #### E MRAD ####NO LOCATION NEEDED 03-31-2018 17:18-0500 Body temperature 37.0 degrees [facility] Comment on above: Result Comment: NOTE: PATIENT RESULTS AR E NOT CORRECTED FOR TEMPERATURE. Performed By: #### E MRAD ####NO LOCATION NEEDED 03-31-2018 17:01-0500 Body temperature 37.0 degrees C [facility] Comment on above: Result Comment: NOTE: PATIENT RESULTS AR E NOT CORRECTED FOR TEMPERATURE. Performed By: #### E MRAD ####NO LOCATION NEEDED 03-31-2018 15:30-0500 Body temperature 37.0 degrees C [facility] Comment on above: Result Comment: NOTE: PATIENT RESULTS AR E NOT CORRECTED FOR TEMPERATURE. Performed By: #### E MRAD ####NO LOCATION NEEDED 03-31-2018 14:29-0500 Body temperature 37.0 degrees C [facility] Comment on above: Result Comment: NOTE: PATIENT RESULTS AR E NOT CORRECTED FOR TEMPERATURE. Performed By: #### A FPA3 ####[id number] [place] [address] 03-31-2018 13:56-0500 Body temperature 37.0 degrees C [facility] Comment on above: Result Comment: NOTE: PATIENT RESULTS AR E NOT CORRECTED FOR TEMPERATURE. Performed By: #### A FPA3 ####[id number] [place] [address] 03-31-2018 13:11-0500 Body temperature 37.0 degrees C [facility] Comment on above: Result Comment: NOTE: PATIENT RESULTS AR E NOT CORRECTED FOR TEMPERATURE. Performed By: #### A FPA3 ####[id number] [place] [address] 03-31-2018 12:53-0500 Body temperature 37.0 degrees C [facility] Comment on above: Result Comment: NOTE: PATIENT RESULTS AR E NOT CORRECTED FOR TEMPERATURE. Performed By: #### A FPA3 ####[id number] [place] [address] 03-31-2018 12:24-0500 Body temperature 37.0 degrees C [facility] Comment on above: Result Comment: NOTE: PATIENT RESULTS AR E NOT CORRECTED FOR TEMPERATURE. Performed By: #### A FPA3 ####[id number] [place] [address] 03-31-2018 11:57-0500 Body temperature 37.0 degrees C [facility] Comment on above: Result Comment: NOTE: PATIENT RESULTS AR E NOT CORRECTED FOR TEMPERATURE. Performed By: #### A FPA3 ####[id number] [place] [address] 03-31-2018 11:45-0500 Body temperature 37.0 degrees C [facility] Comment on above: Result Comment: NOTE: PATIENT RESULTS AR E NOT CORRECTED FOR TEMPERATURE. Performed By: #### A FPA3 ####[id number] [place] [address] 03-31-2018 09:53-0500 Body temperature 37.0 degrees C [facility] Comment on above: Result Comment: NOTE: PATIENT RESULTS AR E NOT CORRECTED FOR TEMPERATURE. Performed By: #### A FPA3 ####[id number] [place] [address] 03-19-2018 16:32-0400 Body temperature 37.0 degrees C [facility] Comment on above: Result Comment: NOTE: PATIENT RESULTS AR E NOT CORRECTED FOR TEMPERATURE. Performed By: #### E MRAD ####NO LOCATION NEEDED Encounters Encounter Date Encounter Type Care Provider Facility Start: 05-05-2024 End: 05-05-2024 Intpostage, LLCheet Debbie Gomez [facility] Work Phone: [facility] Start: 05-05-2024 End: 05-05-2024 Bamboo flowsheet Debbie Gomez [facility] Work Phone: [facility] Start: 05-05-2024 End: 05-05-2024 Clinical Support Debbie Gomez [facility] Work Phone: [facility] Comment on above: Sensorineural hearin g loss, bilateral (Primary Dx); Tinnitus, bilateral Start: 03-16-2024 End: 03-16-2024 [facility] Work Phone: Start: 03-16-2024 End: 03-16-2024 Patient encounter procedure [facility] Work Phone: Start: 01-29-2024 End: 01-29-2024 ambulatory [facility] Work Phone: Start: 01-29-2024 End: 01-29-2024 Patient encounter procedure [facility] Work Phone: Start: 01-22-2024 Non-patient / Non-visit [facility] Work Phone: Start: 01-06-2024 End: 01-06-2024 ambulatory [facility] Start: 01-06-2024 End: 01-06-2024 Encounter for other preprocedural examination [facility] Start: 12-23-2023 End: 12-23-2023 ambulatory OSCAR ARVIZU Not Available Start: 10-24-2023 End: 10-24-2023 ambulatory OLGA VOGEL Not Available Start: 08-14-2023 End: 08-14-2023 ambulatory [facility] Work Phone: Start: 08-14-2023 End: 08-14-2023 Patient encounter procedure [facility] Work Phone: Start: 08-05-2023 Non-patient / Non-visit [facility] Work Phone: Start: 06-24-2023 [...] Start: 05-26-2023 End: 05-26-2023 ambulatory MARJ DEMARCO [facility] Start: 03-11-2023 End: 03-11-2023 ambulatory Sal Sabillon Other [facility] Other Start: 03-11-2023 Nursing evaluation o f patient and report Sal Sabillon [facility] Start: 01-16-2023 End: 01-16-2023 ambulatory Frederick Geovanni Other [facility] Other Start: 01-16-2023 Office outpatient vi sit 25 minutes Frederick Geovanni [facility] Start: 06-20-2022 End: 06-20-2022 ambulatory Frederick Geovanni Other [facility] Other Start: 06-20-2022 Office outpatient vi sit 25 minutes Frederick Geovanni [facility] Start: 06-13-2022 End: 06-14-[address] SAL SABILLON Facility:[facility] Start: 06-07-2022 End: 06-08-[address] SAL SABILLON Facility:[facility] Start: 05-24-2022 End: 05-25-[address] SAL SABILLON Facility:[facility] Start: 01-12-[address] SAL SABILLON Facil ity:[facility] Start: 11-22-2021 End: 11-22-2021 ambulatory Frederick Geovanni Other [facility] Other Start: 11-22-2021 Office outpatient vi sit 15 minutes Frederick Geovanni [facility] Start: 11-17-2021 End: 11-18-2021 ambulatory FREDERICK GEOVANNI Facility:[facility] Start: 06-03-2021 End: 06-03-2021 ambulatory Frederick Geovanni Other [facility] Other Start: 06-03-2021 Telephone encounter Frederickcindi Biswasr [facility] Start: 05-31-2021 End: 05-31-2021 ambulatory Frederick Geovanni Other [facility] Other Start: 05-31-2021 Office outpatient vi sit 25 minutes Frederick Geovanni [facility] Start: 02-08-2021 End: 02-09-2021 ambulatory MARJ DEMARCO Facility:[facility] Start: 04-09-2019 End: 04-13-2019 Evaluation and management of inpatient ELLIE JUÁREZ [facility] Start: 04-09-2019 End: 04-13-2019 Evaluation and management of inpatient Ellie Juárez Work Phone: [facility] Start: 04-07-2019 End: 04-09-2019 Evaluation and management of inpatient SAL SABILLON [facility] Start: 04-07-2019 End: 04-09-2019 Evaluation and management of inpatient Gilbert Martinez Work Phone: [facility] Comment on above: SIRS (systemic infla mmatory response syndrome) (HCC) (Primary Dx); Dehydration; TIFFANI (acute kidney injury) (HCC); Bronchitis; Elevated TSH Start: 04-05-2019 End: 04-05-2019 Patient encounter procedure [facility] Start: 04-05-2019 End: 04-07-2019 Patient encounter procedure [facility] Start: 04-05-2019 End: 04-05-2019 Subsequent hospital visit by physician Reid Mejia Work Phone: [facility] Comment on above: Post-op pain (Primar y Dx) Start: 03-30-2019 End: 04-04-2019 Patient encounter procedure [facility] Start: 03-30-2019 End: 04-03-2019 Subsequent hospital visit [...] Evaluation and management of inpatient Kenneth Cheng [facility] Procedures Date Procedure Procedure Detail Performing Clinician Start: 05-05-2024 AUDITORY FUNCTION TESTS Debbie Gomez [facility] Work Phone: Start: 04-13-2019 Gluc bld gluc [...] Unknown Provider Result Start: 04-12-2019 Prothrombin time [employer] Work Phone: Start: 04-12-2019 INTAKE AND OUTPUT [...] Unknown Provider Result Start: 04-11-2019 Prothrombin time [employer] Work Phone: Start: 04-11-2019 INTAKE AND OUTPUT [...] home use Unknown Provider Result Start: 04-10-2019 CORRECTIONS NURSE EVAL AND TREAT REID Y OO Start: [...] W/ REFLEX TO MG FOR LOW K [employer] Work Phone: Start: 04-08-2019 Blood count complete auto&auto difrntl wbc Shanika MD [employer] Work Phone: Start: 04-08-2019 Hepatic function panel [employer] Work Phone: Start: 04-08-2019 LACTATE, SEPSIS Shanika [employer] Work Phone: Start: 04-08-2019 Prothrombin time Shanika MD [employer] Work Phone: Start: 04-08-2019 Assay of lactate [...] above: Performed By: #### T S3C #### [facility] [address] [place] [address] Start: 04-07-2019 [...] REID SALLIE Start: 04-05-2019 DIET NPO, NOW REDI SALLIE Start: 04-05-2019 Gluc bld gluc mntr [...] on above: Performed By: #### T +S ####[id number] [place] [address] Start: 03-23-2018 Insertion of Intralu devon Device into Inferior Vena Cava, Percutaneous Approach Kenneth Cheng Start: 03-22-2018 Antibody screen Kenneth merlos Comment on above: Performed By: #### L IPID ####[id number] [place] [address] Start: 03-19-2018 Echocardiography Kenneth Lynnstacy Plan of Treatment Date Care Activity Detail Author Start: 12-21-2024 End: 12-21-2024 Patient encounter procedure 12/21/2024 10:30 AM EDT Office Visit [facility] [address] [place] [address] Oscar Arvizu MD [address] [address] [facility] Start: 05-24-2024 End: 05-24-2024 Patient encounter procedure 05/24/2024 9:40 AM EST Office Visit [facility] [address] [place] [address] Tyler Estrada MD [address] [place] [address] [facility] [address] [facility] Start: 05-05-2024 End: 05-05-2024 Clinical Support 05/05/2024 1:00 PM EST Clinical Support [facility] 112 [facility] [address] [place] [address] Debbie Gomez, [facility] [address] [place] [address] Arrived [facility] Comment on above: Arrived Start: 01-18-2024 Influenza vaccination Influenza Vaccine (#1) [facility] Start: 12-23-2023 End: 12-23-2023 Patient encounter procedure 12/23/2023 10:30 AM EDT Office Visit [facility] [address] [place] [address] Oscar Arvizu MD [address] [address] [facility] Start: 06-24-2023 End: 06-24-2024 US.doppler Carotid [...] - Td) DTaP/Tdap/Td vaccine (3 - Td) [place], [place] Start: 04-09-2020 Creatinine monitoring Creatinine monitoring [place] Start: 04-09-2020 Potassium monitoring Pot[place] Start: 04-08-2020 Creatinine monitoring Creatinine [place] Start: 04-08-2020 Potassium monitoring Pot[place] Start: 03-30-2020 Creatinine monitoring Creatinine [place] Start: 03-30-2020 Potassium monitoring Pot[place] Start: 06-30-2019 A1C test (Diabetic or Prediabetic) A1C test (Diabetic or Prediabetic) [place] Start: 04-23-2019 End: 04-23-2019 Office Visit 04/23/2019 Office Visit Neurosurgery Reid Mejia MD [address] [place] [address], [address] [place] [address] [employer] Start: 04-05-2019 End: 04-05-2019 Hospital Encounter [facility] Comment on above: L 3, L 4 LUMBAR DECOMPRESSION, 1 HOUR/ 1 C-ARM Start: 01-17-2019 Influenza vaccination Flu vaccine (#1) [place] Start: 11-08-2018 Annual Wellness Visit (AWV) Annual Wellness Visit (AWV) [place] Start: 08-27-2015 Pneumococcal 65+ years Vaccine (1 of 1 - PPSV23) Pneumococcal 65+ years Vaccine (1 of 1 - PPSV23) [place] Start: 08-27-2015 Pneumococcal 65+ years Vaccine (2 of 2 - PPSV23) Pneumococcal 65+ years Vaccine (2 of 2 - PPSV23) [place] Start: 2000 Colon cancer screen colonoscopy Colon cancer screen colonoscopy [place] Start: 2000 Shingles Vaccine (1 of 2) Shingles Vaccine (1 of 2) [place] Start: 1968 Diabetic microalbuminuria test Diabetic microalbuminuria test [place] Start: 1960 [object Object] Diabetic foot exam [place] Start: 1960 Diabetic retinal exam Diabetic retinal exam [place], [place] Start: 1960 Lipid screen Lipid screen [place] Start: 1950 AAA screen AAA screen [place] Start: 1950 Hepatitis C screen Hepatitis C screen [place] Start: 1950 Screening for malignant neoplasm of colon [facility] Basic Metabolic Pane l w/ Reflex to MG Basic Metabolic Panel w/ Reflex to MG Lab Routine Daily until discontinued starting 04/08/2019, 2 completed [place] Comment on above: Daily until discontinued starting 2018, 2 completed CBC auto differential CBC auto d ifferential Lab Routine Daily until discontinued starting 04/08/2019, 2 completed [place] Comment on above: Daily until discontinued starting 2018, 2 completed Culture Blood #1 Culture Blood # 1 Microbiology STAT 04/07/2019 7:04 PM EST [place] Culture Blood #2 Culture Blood # 2 Microbiology STAT 04/07/2019 6:56 PM EST [place] EKG 12 Lead [place] Comment on above: Daily until discontinued starting 2018, 2 completed Incentive spirometry RT post-op Incentive spirometry RT post-op Respiratory Care Routine Every 2hr while awake until discontinued starting 04/08/2019 [place] Comment on above: Every 2hr while awake until discontinued starting 04/08/2019 Initiate Oxygen Ther apy [facility] Comment on above: Daily until discontinued starting 2018 Daily until disconti nued starting 04/10/2019 Daily until disconti nued starting 04/08/2019 Lactic acid, plasma Lactic acid, plasma Lab Routine Every 6hr until discontinued starting 04/08/2019, [address] [facility] Comment on above: Every 6hr until discontinued starting , 5 completed Phase I & II - meter ed glucose [facility] Comment on above: As Needed until discontinued starting 4X Daily (AC & HS) u ntil discontinued starting 04/09/2019 As Needed until disc ontinued starting 04/09/2019 4X Daily (AC & HS) u ntil discontinued starting 04/08/2019 As Needed until disc ontinued starting 04/08/2019 End: 04-05-2019 POCT Glucose POCT Glucose Point of Care Testing STAT One Time for 1 Occurrences starting 04/05/2019 until 04/05/[address] [facility] Comment on above: One Time for 1 Occurrences starting 03/19 until 04/05/2019 End: 04-11-2019 Procalcitonin Procalcitonin Lab Routine Q48H for 2 Occurrences starting 04/09/2019 until 04/11/2019, [address] [facility] Comment on above: Q48H for 2 Occurrences starting 04/09/20 19 until 04/11/2019, 1 completed PROTIME-INR [facility] Bowen Comment on above: Daily until discontinued starting 2018, 4 completed Daily until disconti nued starting 04/10/2019 End: 04-05-2019 Pulse Oximetry Spot Check Pulse Oximetry Spot Check Respiratory Care Routine One Time for 1 Occurrences starting 04/05/2019 until 04/05/[address] [facility] Comment on above: One Time for 1 Occurrences starting 03/19 until 04/05/2019 Renal function 2000 panel - Serum or Plasma [facility] Renal function 2000 panel - Serum or Plasma [facility] Respiratory Culture Respiratory Culture Microbiology Routine 04/08/2019 5:06 AM EST [facility] Immunizations Immunization Date Immunization Notes Care Provider Fa kevin 05-19-2023 influenza virus vaccine, unspecified formulation [facility] 04-04-2023 ABRYSVO - Respirator y syncytial virus (RSV), vaccine, bivalent, protein subunit RSV prefusion F, diluent reconstituted, 0.5 mL, PF [facility] Work Phone: [facility] 03-11-2023 influenza, high dose seasonal, preservative-free Sal Jesse Other [employer] Other 03-11-2023 influenza virus vaccine, unspecified formulation [facility] 07-01-2022 Influenza, Seasonal, Quadrivalent, Adjuvanted [facility] Work Phone: [facility] 07-01-2022 tetanus toxoid, redu tatum diphtheria toxoid, and acellular pertussis vaccine, adsorbed [facility] Work Phone: [facility] 07-01-2022 influenza virus vaccine, unspecified formulation Oscar Arvizu MD Work Phone: [facility] 06-25-2021 Influenza, Seasonal, Quadrivalent, Adjuvanted [facility] Work Phone: [facility] 06-25-2021 pneumococcal polysaccharide vaccine, 23 valent [facility] Work Phone: [facility] 11-27-2020 zoster vaccine recombinant [facility] Work Phone: [facility] 09-06-2020 zoster vaccine recombinant [facility] Work Phone: [facility] 08-05-2020 COVID-19 mRNA, Comirnaty (Pfizer) [facility] 07-22-2020 COVID-19 mRNA, Comirnaty (Pfizer) [facility] 07-15-2020 Pfizer Purple Cap SARS-CoV-2 Vaccination [facility] Work Phone: [facility] 02-17-2020 influenza virus vaccine, unspecified formulation [facility] Work Phone: [facility] 02-11-2019 Seasonal trivalent influenza vaccine, adjuvanted, preservative free [facility] Work Phone: [facility] 03-20-2018 influenza, high dose seasonal, preservative-free [facility] Work Phone: [facility] 03-04-2016 influenza, high dose seasonal, preservative-free [facility] Work Phone: [facility] 05-01-2010 tetanus toxoid, redu tatum diphtheria toxoid, and acellular pertussis vaccine, adsorbed [facility] Work Phone: [facility] 03-31-2010 tetanus toxoid, redu tatum diphtheria toxoid, and acellular pertussis vaccine, adsorbed [facility] Work Phone: [facility] 03-16-2001 TD(adult) unspecifie d formulation [facility] Work Phone: [facility] 10-27-1991 yellow fever vaccine [facility] Work Phone: [facility] Payers Date Payer Category Payer Medicare (Managed Care) [facility] [id number] 2024 Unknown [employer] [id number] 2023-Present [address] [place] [address] [id number] 2023 Medicare [id number] 2022 Private Health Insurance [employer]LEMENT [id number] 2022-Present [address] [address] [place] [address] Supplement [id number] 2017 Medicare [id number] 2017 Medicare xxxxxxxxxx [id number] 2015 Medicare MEDICARE MEDICAR E PART B [id number] 2015-[place] [address] Medicare [id number] 1959 Medicare [id number] 1959 Private Health Insurance [facility] [id number] 1959 Self-pay 1950 Unknown [id number] .356 1950 Unknown [id number] 2.16.840.1.729350.3.579.2 .1046 1950 Unknown [id number] 2.16.840.1.651556.3.579.2 .182 1950 Unknown [id number] 2.16.840.1.943013.3.579.2 .182 1950 Unknown [id number] 2.16.840.1.779996.3.579.2 .182 1950 Unknown [id number] 2.16.840.1.991254.3.579.2 .182 1950 Unknown [id number] 2.16.840.1.347595.3.579.2 .182 1950 Unknown [id number] 2.16.840.1.264269.3.579.2 .647 1950 Unknown [id number] 2.16.840.1.510815.3.579.2 .593 1950 Unknown [id number] 2.16.840.1.957953.3.579.2 .593 1950 Unknown [id number] 2.16.840.1.801697.3.579.2 .593 1950 Unknown [id number] 2.16.840.1.562722.3.579.2 .593 1950 Unknown [id number] 2.16.840.1.085494.3.579.2 .593 1950 Unknown [id number] 2.16.840.1.068710.3.579.2 .1259 1950 Unknown [id number] 2.16.840.1.931691.3.579.2 .1259 1950 Unknown [id number] 2.16.840.1.740879.3.579.2 .1259 1950 Unknown [id number] 2.16.840.1.753887.3.579.2 .1259 Private Health Insurance [facility] [id number] Unknown [id number] Social History Date Type Detail Facility Start: 04-05-2019 End: 09-27-2022 Tobacco smoking status [facility] Former smoker [facility] End: 03-30-1991 History of tobacco use Current [place] End: 03-30-1991 History of tobacco use Cig[place] Start: 04-05-2019 End: 04-21-2024 Cigarettes smoked current (pack per day) - Reported [place] History of tobacco use Chews Tobacco [place] Start: 04-05-2019 End: 04-21-2024 Alcohol intake Current drinker of alcohol (finding) [place] Start: 03-30-2019 Alcohol Comment social Kae Bowen [place], [place] Start: 1950 Sex Assigned At Not on file [place] Start: 04-09-2019 History SDOH Social Connections Phone 5 [place] Start: 04-09-2019 History SDOH Social Connections Get Together 3 [place] Start: 04-09-2019 History SDOH Social Connections Jain 2 [place] Start: 04-09-2019 History SDOH Social Connections Meetings 1 [place] Start: 04-09-2019 History SDOH Physica l Activity DPW 0 [place] Start: 10-11-2022 End: 04-21-2024 Sex Assigned At [facility] [employer] Other Start: 09-27-2022 Tobacco use and exposure Smokeless tobacco non-user [facility] Start: 09-27-2022 Tobacco Comment >10 years sinc e last smoked [facility] Start: 09-27-2022 Alcohol Comment caffeine: coffee [facility] Start: 1950 Sex Assigned At Male [facility] Clinical Notes 11-24-2020 to 05-05-2024 Debbie Gomez, CCC-A - 05/05/2024 1:00 PM Keegan Arvizu MD - 06/24/2023 10:23 AM Keegan Arvizu MD - 06/24/2023 10:22 AM Keegan Arvizu MD - 06/24/2023 10:22 AM EST [...] Mishra review audiogram documented in this encounter [facility] 01-06-2024 Note Cardiovascular Medic [facility] SUBJECTIVE Chief Complaint Patient presents [...] 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 [facility] 01-06-2024 Note Pt is here for denta l clearance for tooth extraction. Pt has htn, hyperlipidemia. Since last visit pt had labs with lipids, carotid. Review of Systems All other systems reviewed and are negative. [facility] 06-24-2023 History of Present illness Narrative Associated [...] Disease Assessment and Plan - Parkinson disease ([facility]) Stop med for now ad [...] SH - Past Medical History: Diagnosis Date Shasta's disease (CMS/HCC) Diabetes (CMS/HCC) GERD (gastroesophageal reflux disease) History of hepatitis B Hyperlipidemia (CMS/HCC) Hypertension (CMS/HCC) Prostate cancer (CMS/HCC) Sleep apnea Thyroid disease (CMS/HCC) Past Surgical History: Procedure Laterality Date APPENDECTOMY CARPAL TUNNEL RELEASE Bilateral CATARACT EXTRACTION 2004 CHOLECYSTECTOMY 2014 COLONOSCOPY 2009 NOSE SURGERY x 2 PLANTAR FASCIA SURGERY NE MEDICATION MANAGEMENT Disease:Shasta's Disease NE RELEASE THENAR MUSCLE Right 06/13/2014 thumb trigger [...] Lipid abnormalities are well controlled, continue lipitor [facility] 05-26-2023 Note Hypertension is stab le in light of florinef for orthostasis that is currently well controlled and pt without c/o symptoms. Continue all meds [facility] 05-26-2023 Note Coronary artery dise ase is Stable Continue GDMT- Asa, lipitor, metoprolol continue risk factor modifications- heart healthy diet, regular exercise as tolerated and continue all medications. [facility] 05-26-2023 Note Patient here for 1 y ear follow up CAD, NSVT, and orthostatic hypotension. Had echo shortly after last apt in May 2022. Routine labs were done in Dec 2022. Denies chest pain, SOB, and lightheadedness. Review of Systems All other systems reviewed and are negative. [facility] 05-26-2023 Note UTP CARDIOLOGY PROGR ESS NOTE [...] RV size a (more content not included)... [facility] 05-26-2023 Note Monitor with routine echocardiog sukhwinder [facility] 01-16-2023 Evaluation note Encounter Date Diagnosis Assessment [...] etiology. I have prescribed him oral magnesium. [employer] Other 02-02-2023 Evaluation note* Encounter Date Diagnosis [...] to take oral Magnesium every other day. [employer] Other 07-07-2022 Evaluation note* Encounter Date Diagnosis [...] advised him to contact his PCP or budget officer. Nov, Laz stewart cr kid I-IV (ICD-10 - I12.9) Blood pressure is controlled and he appears to be euvolemic. Continue current medication Nov, Secondary hyperparathyroidism (ICD-10 - N25.81) MBD parameters including calcium, phosphorus, vitamin D and PTH are within the goal [employer] Other 01-13-2022 Evaluation note* Encounter Date Diagnosis [...] advised him to contact his PCP or budget officer. May, Laz hy kid w cr kid I-IV (ICD-10 - I12.9) Blood pressure is controlled and he appears to be euvolemic. Continue current medication May, Secondary hyperparathyroidism (ICD-10 - N25.81) MBD parameters including calcium, phosphorus, vitamin D and PTH are within the goal May, Anemia of renal dise ase (ICD-10 - D63.1) Hemoglobin is within goal. We will check iron studies. [employer] Other 08-04-2021 NoteHNO ID: [id number] Author: Claudio Parker MD Service: ? Author [...] HISTORY: PAST MEDICAL HISTORY Diagnosis Date - Shasta's disease (HCC) - Coronary arteriosclerosis - DVT (deep venous thrombosis) (HCC) - Hepatitis B - HTN (hypertension) - Hyperthyroidism - AKASH (obstructive sleep apnea) - Prostate cancer (HCC) - Pulmonary embolism (HCC) PAST SURGICAL HISTORY: PAST SURGICAL HISTORY Procedure Laterality Date - APPENDECTOMY - CARPAL TUNNEL Bilateral - COLONOSCOP W/ OR W/O [facility] SPEC Colonoscopy - CORONARY ARTERY BYPASS [...] CHF - Diabetes Sis (more content not included)...[facility] 11-24-2020 NoteHNO ID: [id number] Author: Claudio Parker MD Service: ? Author Type: Physician Type: Progress Notes Filed: 11/24/2020 2:10 PM Note Text: PATIENT NAME: Don Elkins DATE: 11/24/2020 PRIMARY CARE PHYSICIAN: Dr. Sal Sabillon/Marj Demarco CNP OTHER PHYSICIANS: Dr. Wilson, Dr. Cortez, Dr. Arvizu ([facility] Neurology) HPI: This is a 70 [...] TUNNEL Bilateral - [facility]COP [facility]/ [facility] Colonos (more content not included)...[facility] No InformationNort [employer] Other Evaluation note* Diagnosis Parkinson's disease without [...] HospitalEvaluation note* Diagnosis Onset Date Resolution Status Shasta disease acute CKD (chronic kidney disease) stage 3, GFR 30-59 ml/min acute [id number] acute Hypomagnesemia acute Secondary hyperparathyroidism acute Type 2 diabetes mellitus wit h diabetic chronic kidney disease acute [facility] Work Phone: Evaluation note* Diagnosis Onset Date Resolution Status Brigida disease acute CKD (chronic kidney disease) stage 3, GFR 30-59 ml/min acute [id number] acute Hypomagnesemia acute Secondary hyperparathyroidism acute Type 2 diabetes mellitus wit h diabetic chronic kidney disease acute Screening PSA (prostate specific antigen) [facility] Work Phone: Evaluation note* Diagnosis Parkinson's disease [...] Hospitalization History see above Hospitalization History pneumonia [employer] Other Summary Purpose Family History No Family [...] FoundDocuments on File Type Date Recorded Patient Tomography Technologist Expl anation Advance Directives and Living Will Power of Winding Department Supervisor Documents on File Type Date Recorded Patient Tomography Technologist Expl anation Advance Directives and Living Will Power of Winding Department Supervisor Latest Code Status on File Code Status [...] your physician 11) Call your doctor at [phone] for an appointment (or follow up as [...] call OFFICE. The 24- hour phone is [phone] 13) If you are unable to contact [...] EST Continuity of Care Form Patient Name: Dno Elkins : 1950 Admit date: 04/07/2019 Discharge [...] Hospital Unit/Room#: W276/W276-01 Discharging Unit Phone Number: [phone] Emergency Contact: Extended Emergency Contact Information Primary Emergency Contact: Percy Elkinsnie Address: [address] [place] [address] [place] [address] Relation: Spouse Past Surgical History: Past Surgical [...] DECOMPRESSION performed by Reid Mejia MD at [facility] OR NOSE SURGERY x [...] w/o perforation or abscess w/o bleeding K57.30 Shasta's disease (HCC) E27.1 Cancer (HCC) C80.1 Restless [...] Independent Dressing Independent Toileting Independent Feeding Independent Zinc Chloride Operator Independent Med Delivery whole Wound Care Documentation [...] (for information only, NOT a DME order): {EQUIPMENT:[id number]} Other Treatments: Patient's personal belongings (please select all that are sent with patient): glasses,cellphone, warp coiler, pants,shrit, slippers, jacket RN SIGNATURE: MANAGEMENT/SOCIAL WORK SECTION Inpatient Status Date: Readmission Risk Assessment Score: Readmission Risk Risk of Unplanned Readmission: 23 Discharging to Facility/ Agency Name: [facility] Address: Phone: Fax: Dialysis Facility (if applicable) Name: Address: Dialysis Schedule: Phone: Fax: [facility] Director signature: ICIAN SECTION Prognosis: Good Condition at [...] Marcelina Camacho - 04/13/2019 11:34 AM EST [facility] MUSIC THERAPY Date: 04/13/2019 Patient Name: [...] Date: 04/13/2019 Patient Name: Don Elkins Account: [id number] : 1950 (68 y.o.) Room: [place] [address] Diagnosis: Impaired mobility and ADL's d/t severe [...] DECOMPRESSION performed by Reid Mejia MD at [facility] OR NOSE SURGERY x [...] Assistance: Independent(No AD) Transfer Assistance: Independent Active Senior National Account Manager: Yes Occupation: 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, 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 Leisure & Hobbies: build and make things, golf, looking up in berry Additional Comments: Per CORRECTIONS NURSE: Pt reports that his is responsible for [...] Limits Cognition Status: Cognition Overall Cognitive Status: [facility] Arousal/Alertness: Appropriate responses to stimuli Following Commands: [...] 6 Perception Status: Perception Overall Perceptual Status: [facility] Sensation Status: Sensation Overall Sensation Status: [facility] Vision and Hearing Status: Vision Vision: Impaired [...] 04/13/2019 8:41 AM EST Occupational Therapy Facility/Department: [facility] Daily Treatment Note [...] of Acute non-ST elevation myocardial infarction (NSTEMI) ([facility]), Acute post-hemorrhagic anemia, Acute respiratory insufficiency, Bronchiectasis ([facility]), CAD (coronary artery disease), Calculus of urinary tract, Cancer ([facility]), Chronic back pain, CKD (chronic kidney disease), COPD (chronic obstructive pulmonary disease) ([facility]), Diabetes mellitus ([facility]), Diverticulosis of large intestine, DVT (deep venous thrombosis) ([facility]), GERD (gastroesophageal reflux disease), Hx of blood clots, Hyperlipidemia, Hypertension, Lumbar stenosis with neurogenic claudication, Primary adrenocortical insufficiency (HCC), Pulmonary embolism ([facility]), Pulmonary embolism without acute cor pulmonale ([facility]), Restless leg syndrome, RLS (restless [...] Gail Kerr RN - 04/13/2019 8:35 AM [facility] INPATIENT REHABILITATION INDEPENDENT IN ROOM NOTE Room: [...] CPAP. Will continue to monitor. FI PugaanoJaspreet, CORRECTIONS NURSE - 04/12/2019 2:54 PM STEFFI Hoyt Facility/Department: [facility] Speech Language Pathology [...] pt's POC as deemed necesary by treating CORRECTIONS NURSE. Long-term Goals Timeframe for Long-term Goals: 3-5x/week [...] is no longer warranted Signature: Jaspreet Frost CCC-CORRECTIONS NURSE, Date: 04/12/2019, Time: 2:54 PM Sheila Yeh, CHEMISTRY ACCOUNT MANAGER - 04/12/2019 1:01 PM [facility] RECREATIONAL THERAPY Initial Evaluation Date: 04/12/2019 [...] recreation interests: No issues Leisure Interest Survey: [employer] Comput[employer]/Internet, Likes music, Likes animals, Video/online games [...] services, its supported services and groups include: [facility], Pet Therapy, Individual Music [...] by: JOANIE NegroS Date: 04/12/2019 Jaspreet Park, CORRECTIONS NURSE - 04/12/2019 11:00 AM STEFFI Hoyt Facility/Department: [facility] Speech Language Pathology Treatment Note [...] and time management with 75% accuracy. When CORRECTIONS NURSE requested pt double check his work, he [...] pt's POC as deemed necesary by treating CORRECTIONS NURSE. Pt was able to read at the paragraph level with 100% accuracy. No difficulty writing sentences or functional check writing tasks. Pt did say that his Dyslexia causes him to be slower with writing tasks. 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 Pt was able to complete a personal [...] 04/12/2019 10:31 AM EST Occupational Therapy Facility/Department: [facility] Daily Treatment Note [...] of Acute non-ST elevation myocardial infarction (NSTEMI) ([facility]), Acute post-hemorrhagic anemia, Acute respiratory insufficiency, Bronchiectasis ([facility]), CAD (coronary artery disease), Calculus of urinary tract, Cancer (HCC), Chronic back pain, CKD (chronic kidney disease), COPD (chronic obstructive pulmonary disease) ([facility]), Diabetes mellitus ([facility]), Diverticulosis of large intestine, DVT (deep venous thrombosis) ([facility]), GERD (gastroesophageal reflux disease), Hx of blood clots, Hyperlipidemia, Hypertension, Lumbar stenosis with neurogenic claudication, Primary adrenocortical insufficiency (HCC), Pulmonary embolism (HCC), Pulmonary embolism without acute cor pulmonale ([facility]), Restless leg syndrome, RLS (restless [...] require any assistance. Patient used reachers to shredder picker one inch cubes from the floor. [...] EST Physical Therapy Rehab Treatment Note Facility/Department: [facility] Room: R238/R238-01 NAME: [...] device (slide rail) Walk: 6 - Modified [place] Walks at least 150 feet with an [...] the care of [facility]. Patient is to transition slowly back [...] incentive spirometry Ellie Juárez D.O., PM&R Attending [phone] [facility] Elena Kirsten Romano RN - [...] EST Physical Therapy Rehab Treatment Note Facility/Department: [facility] Room: [place] [address]- NAME: Don Elkins : 1950 (68 y.o.) [...] 04/11/2019 10:14 AM EST Occupational Therapy Facility/Department: [facility] Daily Treatment Note [...] of Acute non-ST elevation myocardial infarction (NSTEMI) ([facility]), Acute post-hemorrhagic anemia, Acute respiratory insufficiency, Bronchiectasis (HCC), CAD (coronary artery disease), Calculus of urinary tract, Cancer (HCC), Chronic back pain, CKD (chronic kidney disease), COPD (chronic obstructive pulmonary disease) (HCC), Diabetes mellitus (HCC), Diverticulosis of large intestine, DVT (deep venous thrombosis) ([facility]), GERD (gastroesophageal reflux disease), Hx of blood clots, Hyperlipidemia, Hypertension, Lumbar stenosis with neurogenic claudication, Primary adrenocortical insufficiency (HCC), Pulmonary embolism (HCC), Pulmonary embolism without acute cor pulmonale ([facility]), Restless leg syndrome, RLS (restless [...] instruction well. Pt also instructed in double patient care associate lateral negotiation technique to utilize when back [...] the care of Dr. Reid [facility]. Patient is to transition slowly back [...] incentive spirometry Ellie Juárez D.O., PM&R Attending [phone] [facility] * Jaspreet Pleitez, OT - 04/11/2019 9:07 AM EST Occupational Therapy Facility/Department: [facility] Daily Treatment Note [...] of Acute non-ST elevation myocardial infarction (NSTEMI) ([facility]), Acute post-hemorrhagic anemia, Acute respiratory [...] EST Physical Therapy Rehab Treatment Note Facility/Department: [facility] Room: R238/R238-01 NAME: [...] instruction well. Pt also instructed in double patient care associate lateral negotiation technique to utilize when back [...] 2: Pt to complete TUG in 13.5m/s terminal supervisor goals detention goal 1: Pt to complete all bed mobility with indep detention goal 2: Pt to complete transfers with indep terminal supervisor goal 3: pt to ambulate >150 ft with no AD independently detention goal 4: pt to navigate 12 steps with 1 HR mod indep Therapy Time: Individual Time In 1300 Time Out 1330 Minutes 30 Timed Code Treatment Minutes: 30 Minutes(gait 20min; therex 10min) Sera Escalera, PT, 04/10/19 at 2:46 PM * Rox Vergara PRIMER CHARGING TOOL SETTER - 04/10/2019 2:23 PM EST Occupational Therapy Facility/Department: [facility] Daily Treatment Note [...] of Acute non-ST elevation myocardial infarction (NSTEMI) ([facility]), Acute post-hemorrhagic anemia, Acute respiratory insufficiency, Bronchiectasis ([facility]), CAD (coronary artery disease), Calculus of urinary tract, Cancer ([facility]), Chronic back pain, CKD (chronic kidney disease), COPD (chronic obstructive pulmonary disease) ([facility]), Diabetes mellitus (HCC), Diverticulosis of [...] 30 minutes YUDI Hughes * Wendy Devlin, CORRECTIONS NURSE - 04/10/2019 12:47 PM EST [facility] Facility/Department: [facility] Speech Language Pathology Initial Speech/Language/Cognitive Assessment NAME:Don Elkins : 1950 (68 y.o.) ROOM: [place] [address] ADMISSION DATE: 04/09/2019 PATIENT DIAGNOSIS(ES): Impaired gait and mobility [R26.89] No chief complaint on file. Patient Active Problem List Diagnosis Date Noted Iron deficiency anemia 04/09/2019 Meralgia paresthetica 04/09/2019 Obstructive sleep apnea syndrome 04/09/2019 Abnormality of gait and mobility due to Impaired Mobility and ADL's due to Severe Lumbar Spinal Stenosis. [facility] 04/09/2019 CKD (chronic kidney [...] claudication Primary adrenocortical insufficiency (HCC) Pulmonary embolism ([facility]) 06/23/2018 2018 / has been [...] DECOMPRESSION performed by Reid Mejia MD at [facility] OR NOSE SURGERY x 2 ORs PLANTAR FASCIA SURGERY Left PROSTATECTOMY 2011 DATE ONSET: 04/09/2019 Date of Evaluation: 04/10/2019 Evaluating Therapist: DHIRAJ Garrison Assessment: Cognitive Diagnosis: Pt presents with moderate cognitive-linguistic deficits characterized by high-level word finding, paragraph comprehension, short-term memory, verbal reasoning, and problem solving deficits Recommendations: Requires CORRECTIONS NURSE Intervention: Yes Duration/Frequency of Treatment: 3-5x/week of [...] pt's POC as deemed necesary by treating CORRECTIONS NURSE. 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 Leisure & Hobbies: wood working. Additional [...] assist Memory: 3- Moderate assist Therapy Time CORRECTIONS NURSE Individual Minutes Time In: 1020 Time Out: 1052 Minutes: 32 Signature: * Seth Moeller OTR/Atilio - 04/10/2019 12:39 PM EST The patient completed the [facility] Mental Status (UMS) Examination on this [...] PT - 04/10/2019 12:36 PM EST Facility/Department: [facility] Rehabilitation Initial Assessment: [...] ADL's due to Severe Lumbar Spinal Stenosis. [facility] admit 04/09/19. 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 Cancer ([facility]) 03/30/2019 Restless leg syndrome 03/30/2019 [...] Date Acute non-ST elevation myocardial infarction (NSTEMI) ([facility]) Acute post-hemorrhagic anemia Acute respiratory insufficiency following thoracic surgery Bronchiectasis ([facility]) CAD (coronary artery disease) 03/2018 Triple bypass Calculus of urinary tract Cancer ([facility]) prostatectomy Chronic back pain CKD (chronic kidney disease) COPD (chronic obstructive pulmonary disease) (HCC) Diabetes mellitus (HCC) dx 2016 Diverticulosis of large intestine DVT (deep venous thrombosis) ([facility]) GERD (gastroesophageal reflux disease) Hx of blood clots 02/2018 PE Hyperlipidemia meds > 20 yrs Hypertension meds > 20 yrs Lumbar stenosis with neurogenic claudication Primary adrenocortical insufficiency ([facility]) Pulmonary embolism ([facility]) 06/23/2018 2018 / has been [...] DECOMPRESSION performed by Reid Mejia MD at [facility] OR NOSE SURGERY x [...] Assistance: Independent(No AD) Transfer Assistance: Independent Active Senior National Account Manager: Yes Occupation: 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 Pt also instructed in double patient care associate lateral negotiation technique to utilize when back [...] 2: Pt to complete TUG in 13.5m/s terminal supervisor goals terminal supervisor goal 1: Pt to complete all bed mobility with indep terminal supervisor goal 2: Pt to complete transfers with indep terminal supervisor goal 3: pt to ambulate >150 ft with no AD independently terminal supervisor goal 4: pt to navigate 12 steps [...] Recommended toilet hygeine wand, sock aid and heading matcher and assembler. Transfer care to lead OTR Assessment Performance [...] of Acute non-ST elevation myocardial infarction (NSTEMI) ([facility]), Acute post-hemorrhagic anemia, Acute respiratory insufficiency, Bronchiectasis ([facility]), CAD (coronary artery disease), Calculus of urinary tract, Cancer ([facility]), Chronic back pain, CKD (chronic kidney disease), COPD (chronic obstructive pulmonary disease) ([facility]), Diabetes mellitus ([facility]), Diverticulosis of large intestine, DVT (deep venous thrombosis) ([facility]), GERD (gastroesophageal reflux disease), Hx of blood clots, Hyperlipidemia, Hypertension, Lumbar stenosis with neurogenic claudication, Primary adrenocortical insufficiency ([facility]), Pulmonary embolism ([facility]), Pulmonary embolism without acute cor pulmonale ([facility]), Restless leg syndrome, RLS (restless [...] Assistance: Independent(No AD) Transfer Assistance: Independent Active Senior National Account Manager: Yes Occupation: 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, 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 Patient Active Problem List Diagnosis Date Noted Iron deficiency anemia 04/09/2019 Meralgia paresthetica 04/09/2019 Obstructive sleep apnea syndrome 04/09/2019 Abnormality of gait and mobility due to Impaired Mobility and ADL's due to Severe Lumbar Spinal Stenosis. [facility] admit 04/09/19. 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 Therapy Time CORRECTIONS NURSE Individual Minutes Time In: 1052 Time Out: 1100 Minutes: 8 Signature: * Cristiano Agosto, [facility] - 04/10/2019 12:14 PM EST [...] Physical Therapy Med Surg Initial Assessment Facility/Department: [address] ORTHO TELE Room: [place] [address] NAME: Don Elkins : 1950 (68 y.o.) [...] Assistance: Independent(No AD) Transfer Assistance: Independent Active Senior National Account Manager: Yes Occupation: Retired Additional Comments: Spouse is also limited by pain in her back; pt. at times has to help lift her.Has customer solutions coordinator occasionally. Spouse uses adaptive mobility equipment OBJECTIVE: [...] Goals: Patient goals : to get better detention goals detention goal 1: indep with bed mobility utilizing log roll terminal supervisor goal 2: pt to be indep with transfers detention goal 3: pt to ambulate >150 ft with no AD independently detention goal 4: pt to navigate 12 steps with 1 HR mod indep [facility] (6 CLICK) BASIC MOBILITY AM-PAC Inpatient Mobility Raw Score : 17 Therapy Time: Individual Time In 0941 Time Out 0955 Minutes 14 Cinthya Alcazar, PT, 04/09/19 at 10:42 AM * Ny Arana OTR/L - 04/09/2019 10:15 AM EST [facility] OCCUPATIONAL THERAPY EVALUATION - ACUTE NAME: Don Elkins : 1950 (68 y.o.) CODE STATUS: Full Code Room: [place] [address] Date of Service: 04/09/2019 Patient Diagnosis(es): Sepsis [...] region with radiculopathy 03/30/2019 Lumbar spondylosis 03/30/2019 Shasta's disease (HCC) 03/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 at times has to help lift her.Has customer solutions coordinator occasionally. 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 Perfect serve sent to [facility] to request nausea meds. Zofran cannot be given until 0700 0459 medicated pt for fever and nausea. Sent respiratory cx to lab. documented in this encounter* Vicki Singletary, SENIOR SYSTEMS ENGINEER - SURGICAL SUPERVISOR - 03/30/2019 1:00 PM EST + Hibiclens wash neck to toes, front & back on Friday04/03/2019 & Friday04/04/2019. + Last dose Coumadin 03/30/2019 / per Dr. Arcos, software applications engineer thru [facility]. + Lovenox bridge to start 03/31/2019 as ordered thru [facility] ( [facility] ) phone # [phone]. + Jackscrew Worker is Dr. Austen Arcos / phone # [phone] / [facility] / Last appt 11/2018/ paper copy of appt notes on chart. + Hx of brigida disease / budget officer Dr. Xavier Lake / Nupur / phone # [phone]. / paper copy of last appt notes dated 01/06/2019 on chart. documented in this encounter Assessments Diagnosis Post-op pain- Primary Other acute postoperative pain Diagnosis Abnormality of gait and mobility due to Impaired Mobility and ADL's due to Severe Lumbar Spinal Stenosis. [facility] Re[facility] admit 04/09/19.- Primary Abnormality of gait [...] hypertension Diagnosis SIRS (systemic inflammatory response syndrome) ([facility])- Primary Systemic inflammatory response syndrome, unspecified Dehydration TIFFANI (acute kidney injury) ([facility]) Acute kidney failure, unspecified Bronchitis Bronchitis, not specified as acute or chronic Elevated TSH Other abnormal blood chemistry Sepsis ([facility]) CKD (chronic kidney disease) Chronic kidney disease, unspecified Metabolic acidosis, normal anion gap (NAG) Acidosis Nausea and vomiting Nausea with vomiting Postoperative fever Postprocedural fever Elevated bilirubin Disorders of bilirubin excretion Type 2 diabetes mellitus with hyperglycemia, with long-term current use of insulin (HCC) Shasta's disease (HCC) Glucocorticoid deficiency Lumbar spondylosis Lumbosacral spondylosis without myelopathy Major depressive disorder, single episode, unspecified Abnormality of gait and mobility due to Impaired Mobility and ADL's due to Severe Lumbar Spinal Stenosis. [facility] admit 04/09/19. Abnormality of gait CAD (coronary artery disease) Coronary atherosclerosis of unspecified type of vessel, lovelock or graft HTN (hypertension) Unspecified essential hypertension [...] claudication Lumbar spondylosis Lumbosacral spondylosis without myelopathy Shasta's disease (HCC) Glucocorticoid deficiency Cancer (HCC) Other [...] overuseor abuse and follow-up frequently with his plate painter. ROS x10: The patient also complains of [...] - Patient independently transfers Walk: 7- Complete [place] Walks at least 150 feet Independently with no assistive device Distance Walked: 300' Stairs: 6 - Modified [place] Safely goes up and down at least [...] encouraged tocontinue to discuss discharge plans with therapeutic case manager. Complex Physical Medicine & Rehab Issues Assess & Plan: 1. Severe abnormality of gait and mobility and impaired self-care and ADL's secondary to progressive severe spinal canal stenosis. Functional and medical status have improved nicely status [facility] therefore patient is scheduled for discharge [...] therapy, Lidoderm, K-pad prn. I reviewed her [place] prescription monitoring service data sheetsin hopes of [...] the care of Dr. Reid Mejia at [facility]. Patient is to transition slowly back [...] incentive spirometry Ellie Juárez D.O., PM&R Attending [phone] [facility] documented in this encounter* Gerardo Fitzpatrick MD - 04/09/2019 12:01 PM EST Hospital Medicine Discharge Summary Don Elkins : 1950 Admit date: 04/07/2019 Discharge date: 04/09/2019 Admitting Physician: Gerardo Fitzpatrick MD Primary Care Physician: Sal Sabillon MD Discharge Diagnoses: Active Problems: Lumbar spondylosis Shasta's disease (HCC) Sepsis (HCC) CKD (chronic kidney [...] male that was admitted and treated at [facility] for the following medical issues: Active Problems: Lumbar spondylosis Shasta's disease (HCC) Sepsis (HCC) CKD (chronic kidney [...] by the following consultants while admitted to [facility]: Consults: IP CONSULT TO NEUROSURGERY IP CONSULT [...] Discharge Medications: Don Elkins Home Medication Instructions MARILUZ:[id number] Printed on:04/09/19 1208 Medication Information cephALEXin (KEFLEX) 500 MG capsule [...] tablet Take 1 tablet by mouth daily Mchenry-3 Fatty Acids (FISH OIL) 600 MG CAPS [...] Take 5 mg by mouth daily Indications: N-XN-Mpy warfarin (COUMADIN) 7.5 MG tablet Take 7.5 mg by mouth daily Indications: M-W-F Disposition: If discharged to Home, Any [facility] needs that were indicated and/or required as [...] Beclarence, Oscar Shrestha MD [address] [facility] [address] [place] [address] [address] Referral ID Status Reason Start Date Expiration Date Visits Requested Visits Authorized [id number] Authorized Perform Procedure 06/24/2023 12/21/2023 1 1 Chief Complaint and Reason for Visit Chief Complaint RENAL 6 month follow up Reason for Visit Shasta disease CKD (chronic kidney disease) stage 3, GFR 30-59 ml/min [id number] Hypomagnesemia Secondary 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 Chief Complaint RENAL 6 MONTH F/U Reason for Visit Brigida disease CKD (chronic kidney disease) stage 3, GFR 30-59 ml/min [id number] Hypomagnesemia Secondary 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 Chief Complaint RENAL 6 MONTH F/U Wellness Reason for Visit Brigida disease CKD (chronic kidney disease) stage 3, GFR 30-59 ml/min [id number] Hypomagnesemia Secondary hyperparathyroidism Type 2 diabetes mellitus [...] section and content) DATE CREATED AUTHOR 04/25/2018 [facility] DATE CREATED AUTHOR AUTHOR'S ORGANIZ ATION 05/02/2018 [facility] DATE CREATED AUTHOR AUTHOR'S ORGANIZ ATION 2018 [facility] DATE CREATED AUTHOR AUTHOR'S ORGANIZ ATION 04/13/2019 [facility] DATE CREATED AUTHOR AUTHOR'S ORGANIZ ATION 02/13/2021 [facility] DATE CREATED AUTHOR AUTHOR'S ORGANIZ ATION 05/05/2021 [facility] DATE CREATED AUTHOR AUTHOR'S ORGANIZ ATION 05/21/2021 [facility] DATE CREATED AUTHOR AUTHOR'S ORGANIZ ATION 07/10/2021 [facility] DATE CREATED AUTHOR AUTHOR'S ORGANIZ ATION 06/17/2022 [facility] DATE CREATED AUTHOR AUTHOR'S ORGANIZ ATION 01/07/2024 [facility] DATE CREATED AUTHOR AUTHOR'S ORGANIZ ATION 05/08/2024 [facility] EPIC Reason for Visit (unrecogniz ed section and content) Status Reason Specialty Diagnoses / Procedures Referre d By Contact Referred To Contact Diagnoses SPINAL STENOSIS,, RADICULOPATHY, SPONDYLOSIS Procedures NE LAMNOTMY W/DCMPRSN NRV EACH ADDL CRVCL/LMBR L 3, L 4 LUMBAR DECOMPRESSION, 1 HOUR/ 1 C-ARM Reid Mejia MD [address] [facility], [address] [place] [address] [facility] Reason Comments Post-op Problem Had surgery friday o n low back. Pt has intermittent fever, vomiting and redness around the incision Status Reason Specialty Diagnoses / Procedures Referred By Contact Referred To Contact Diagnoses Sepsis (HCC) Chato Sykes, [address] [facility] [address] [place] [address] [facility] Reason Comments Parkinson's Disease Care Teams (unrecognized sec tion and content) Roller Mechanic Relationship Specialty Start Date End Date Sal Sabillon MD [address] [place] [phone] PCP - General Family Medicine 10/08/22 Roller Mechanic Relationship Specialty Start Date End Date Sal Sabillon MD [address] [place] [phone] PCP - General Family Medicine 10/08/22 Team [...] March 16, 2024 End: March 16, 2024 Roller Mechanic Relationship Specialty Start Date End Date Sal Sabillon MD PCP - General Family Medicine 10/08/22 Roller Mechanic Relationship Specialty Start Date End Date Sal Sabillon MD [address] [place] [id number] PCP - General Family Medicine 05/05/24 Goals [...] BE BASED ON THE PRIMARY CLINICAL RECORDS. [facility] [facility]. provides no warranty or guarantee of the accuracy or completeness of information in this document.
[2024-05-14 06:40] LABS: Alanine Aminotransferase 35 U/L (16-63); Albumin Level 2.6 g/dL (3.4-5.0); Alkaline Phosphatase 51 U/L (46-116); Anion Gap 12.8; Aspartate Amino Transferase 20 U/L (15-37); BUN Creatinine Ratio 4.5; Bilirubin Total 1.6 mg/dL (0.2-1.0); Calcium 8.2 mg/dL (8.5-10.1); Carbon Dioxide 26.3 mmol/L (21.0-32.0); Chloride 104 mmol/L (98-107); Estimated GFR (African America 45 (>=60 mL/min/1.73m^2); Estimated GFR (Non-African Ame 37 (>=60 mL/min/1.73m^2); Globulin 2.7 g/dL; Glucose 112 mg/dL (74-106); Potassium 4.1 mmol/L (3.5-5.1); Sodium 139 mmol/L (136-145); Total Protein 5.3 g/dL (6.4-8.2)
[2024-05-14] MEDS: ATORVASTATIN CALCIUM 40 MG TABLET PO (09:07)
[2024-05-14] MEDS: HYDROCORTISONE 20 MG TABLET PO (09:07)
[2024-05-14] MEDS: ASPIRIN 81 MG TABLET.DR PO (09:07)
[2024-05-14] MEDS: METOPROLOL TARTRATE 100 MG TABLET PO ×2 (09:07→21:29)
[2024-05-14] MEDS: CITALOPRAM HYDROBROMIDE 20 MG TABLET PO (09:07)
[2024-05-14] MEDS: DONEPEZIL HCL 10 MG TABLET PO (09:07)
[2024-05-14] MEDS: ACETAMINOPHEN 325 MG TABLET 650 MG PO (09:10)
--- NOTE | 2024-05-14 10:05 | CM.NOTE ---
Rounds made with Dr. Momin, discussed with pt lab findings and reason for admission to hospital. Pt will be left in OBS bed at this time and possible discharge this afternoon. Dr. Momin will re-evaluate pt this afternoon. PT and OT will evaluate pt for discharge planning.
[2024-05-14] MEDS: FLUDROCORTISONE ACETATE 0.1 MG TABLET PO (10:37)
[2024-05-14] MEDS: GABAPENTIN 400 MG CAPSULE 800 MG PO ×2 (10:37→21:29)
[2024-05-14] MEDS: PANTOPRAZOLE SODIUM 40 MG VIAL IV (10:37)
[2024-05-14] MEDS: AMANTADINE HCL 100 MG CAPSULE PO (10:37)
--- NOTE | 2024-05-14 11:15 | P.HP_ITS ---
HPI H&P: HPI History of Present Illness Chief complaint: WEAKNESS SEPSIS DEHYDRATION HYPOMAGNESEMIA Narrative: 73 y o m with hx of Parknson, Addision and CKD 3, Presented to ED with intractable nausea along with watery diarrhea for past couple of days. Patient report poor appetite, inability to tolerate PO diet for 4 days, and epigastric discomfort/pain for similar duration. Denies blood in stool. Denies vomiting but reports dry heaving for past few days. Denies fever but feels cold and reports excessive sweating. Anurag urinary complaints. Patient had dental extraction with about 7 upper teeth extracted on Friday and was given Po Amoxicillin for it afterwards. His symptoms started a day or two after tooth extraction. Work up in ED revealed persistent and significant tachycardia with HR as high as 124 and brief hypotension. He also was noted to have TIFFANI, lactic acidosis and was admitted for observation for IV fluids and further work up. In ED, he also had normal CXR and there was no sig finding on CT abd/pelvis. He also tested negative for Influenza/COVID./RSV. His UA also not concerning for UTI. He was seen earlier today and while he was able to tolerate a few bites in breakfast, he started to feel nauseous and worsening of his abdominal pain. He had watery stool earlier this morning. Patient feels tired/fatigued and reports generalized weakness and feels unwell. 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) Parkinson disease ?G20.A1 - Parkinson's disease without dyskinesia, without mention of fluctuations (ICD-10) Diabetes ?E11.9 - Type 2 diabetes mellitus without complications (ICD-10) Hypertension ?I10 - Essential (primary) hypertension (ICD-10) Ganglion cyst ?M67.40 - Ganglion, unspecified site (ICD-10) Trigger finger ?M65.30 - Trigger finger, unspecified finger (ICD-10) FH: cholecystectomy ?Z83.79 - Family history of other diseases of the digestive system (ICD-10) Cataract ?H26.9 - Unspecified cataract (ICD-10) Surgical History History of back surgery ?Z98.890 - Other specified postprocedural states (ICD-10) H/O resection of rectum ?Z90.49 - Acquired absence of other specified parts of digestive tract (ICD- 10) Hx of appendectomy ?Z90.49 - Acquired absence of other specified parts of digestive tract (ICD- 10) S/P triple vessel bypass ?Z95.1 - Presence of aortocoronary bypass graft (ICD-10) Social History Highest level of school completed/degree received: some college, no degree Little interest or pleasure in doing things: not at all Feeling down, depressed, or hopeless: not at all Meds Home Medications and Allergies Home Medications ?Medication ?Instructions ?Recorded ?Confirmed ?Type amantadine HCl 100 mg capsule 100 mg PO DAILY 05/13/24 05/13/24 History amoxicillin 500 mg tablet 500 mg PO TID 05/13/24 05/13/24 History aspirin 81 mg tablet,delayed 81 mg PO DAILY 05/13/24 05/13/24 History release (Adult Low Dose Aspirin) atorvastatin 40 mg tablet 40 mg PO DAILY 05/13/24 05/13/24 History citalopram 20 mg tablet (Celexa) 20 mg PO DAILY 05/13/24 05/13/24 History donepezil 10 mg tablet 10 mg PO DAILY 05/13/24 05/13/24 History fludrocortisone 0.1 mg tablet 0.1 mg PO .qod 05/13/24 05/14/24 History gabapentin 800 mg tablet 800 mg PO BID 05/13/24 05/13/24 History hydrocortisone 10 mg tablet 20 mg PO QAM 05/13/24 05/13/24 History hydrocortisone 10 mg tablet 10 mg PO QPM 05/13/24 05/13/24 History (Cortef) levothyroxine 100 mcg tablet 100 mcg PO .ACB 05/13/24 05/13/24 History lisinopril 5 mg tablet (Zestril) 5 mg PO DAILY 05/13/24 05/13/24 History memantine 10 mg tablet 10 mg PO BID 05/13/24 05/13/24 History metoprolol tartrate 100 mg tablet 100 mg PO BID 05/13/24 05/13/24 History semaglutide 1 mg/dose (4 mg/3 mL) 1 mg subcut QWEEK 05/13/24 05/13/24 History subcutaneous pen injector (Ozempic) Allergies Allergy/AdvReac Type Severity Reaction Status Date / Time No Known Drug Allergies Allergy Verified 05/13/24 10:49 Exam Constitutional Vital Signs, click to edit/add: Last Vital Signs Temp 98.2 F 05/14/24 08:48 Pulse 77 05/14/24 09:50 Resp 18 05/14/24 08:48 BP 152/84 H 05/14/24 08:48 Pulse Ox 94 L 05/14/24 08:48 O2 Del Method Room Air 05/14/24 08:48 Documenting provider has reviewed patient's vital signs: yes Common normals: oriented x3 General appearance: cooperative and ill appearing Nutritional appearance: obese HENMT Common normals: normocephalic and head/scalp atraumatic Head and scalp: normocephalic and atraumatic Eye Common normals: conjunctivae normal and no scleral icterus Conjunctiva: conjunctiva(e) normal Respiratory Common normals: normal respiratory effort and clear to auscultation bilaterally Effort & inspection: able to speak in complete sentences Auscultation: clear to auscultation bilaterally Cardio Common normals: regular rate, S1 normal heart sound and S2 normal heart sound Rate: regular rate Heart sounds: S1 normal and S2 normal GI Common normals: Normal to inspection, nondistended, normoactive bowel sounds present, soft to palpation and no hepatosplenomegaly Palpation: soft, tender Details: epigastric and no hepatosplenomegaly Extremity Common normals: no clubbing, cyanosis or edema Neuro Common normals: oriented x3, moves all extremities and no focal motor deficits Psych Common normals: mental status grossly normal, denies hallucinations, denies homicidal ideation and denies suicidal ideation Results Labs Labs: Short CBC 05/14/24 Range/Units 05:41 WBC 7.3 (4.0-11.0) 10^3/uL Hgb 13.1 L (14.0-18.0) g/dL Hct 38.3 L (42.0-54.0) % Plt Count 207 (150-450) 10^3/uL BMP 05/13/24 05/14/24 10:58 05:41 Sodium 136 139 Potassium 3.5 4.1 Chloride 98 104 Carbon Dioxide 23.1 26.3 BUN 14.0 8.0 Creatinine 2.01 H 1.79 H Glucose 169 H 112 H Calcium 9.1 8.2 L Liver Function 05/13/24 05/14/24 Range/Units 10:58 05:41 Total Bilirubin 1.8 H 1.6 H (0.2-1.0) mg/dL AST 23 20 (15-37) U/L ALT 50 35 (16-63) U/L Alkaline Phosphatase 75 51 (46-116) U/L Albumin 3.4 2.6 L (3.4-5.0) g/dL Urine 05/13/24 Range/Units 13:05 Urine Color Dk yellow (YELLOW) Urine Clarity Clear (CLEAR) Urine pH 5.5 (5.0-9.0) Ur Specific [place] >=1.030 A (1.005-1.025) Urine Protein Trace (NEG/TRACE) mg/dL Urine Glucose (UA) Negative (NEGATIVE) mg/dL Assessment and Plan Assessment and Plan (1) SIRS (systemic inflammatory response syndrome): Assessment and Plan: No clear cut source of infection. This could be due to dehydration from nausea/poor PO intake and diarrhea. He could have C diff or infectious diarrhea. Stool sent for testing. His SIRS could also be due to bacteremia from Dental extraction. Blood cultures pending. He is better hemodynamically after IV hydration. C/w IVF for now as still dry and has poor PO intake. Empirically being treated with zosyn for now. (2) Hypotension due to hypovolemia: Assessment and Plan: Resolved. BP stable now. (3) Epigastric pain: Assessment and Plan: Unclear etiology. Could be due to gastroenteritis or gastritis. Started on IV protonix. On empirical zosyn. testing for C diff ordered. No acute finding on CT. lipase normal. (4) Anorexia: Assessment and Plan: Presumably due to infectious colitis/gastorenteritis. (5) Intractable nausea: Assessment and Plan: Was able to eat a little but still has anorexia, and developed worsening of nausea after he ate. Cw/ zofran as needed (6) Diarrhea: Assessment and Plan: Could be due to Amoxicillin vs C diff vs infectious gastroenteritis. C diff testing ordered. Empirically on Zosyn No acute finding on CT. Qualifiers: Diarrhea type: unspecified type Qualified Code(s): R19.7 - Diarrhea, unspecified (7) TIFFANI (acute kidney injury): Assessment and Plan: Baseline Cr is about 1.5, presented with Cr of 2.01, improving with hydration. c/w same. 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 One time dose of IV hydrocortisone to help with acute illness. (9) Hypertension: Assessment and Plan: Stable now. Resume lisinopril. Qualifiers: Hypertension type: primary hypertension Qualified Code(s): I10 - Essential (primary) hypertension (10) Parkinson disease: Assessment and Plan: c.w amantadine Qualifiers: Dyskinesia presence: without dyskinesia Fluctuating manifestations: without fluctuating manifestations Qualified Code(s): G20.A1 - Parkinson's disease without dyskinesia, without mention of fluctuations (11) HLD (hyperlipidemia): Assessment and Plan: c/w lipitor. Qualifiers: Hyperlipidemia type: unspecified Qualified Code(s): E78.5 - Hyperlipidemia, unspecified
--- NOTE | 2024-05-14 12:03 | SWNOTE1 ---
SW met with pt to discuss dc needs. Pt's son in room during assessment. Pt lives at home with his . Pt is independent and does still drive and do own grocery shopping etc. Pt does not have any services coming in to the home and does not use any DME. Pt lives in 1 story home. Pt's son concern is him not being able to eat and his stomach pain. Pt voiced he ate a little bit of an egg this morning. SW advised both pt and son that the doctor will be back out later this afternoon to re-assess. SW to follow as needed. SW did ask if therapy was in to work with him yet and he stated no. Pt then stated he has been up to the bathroom on his own.
[2024-05-14] MEDS: HYDROCORTISONE SODIUM SUCC PF 100 MG/2 ML VIAL IVP (12:08)
--- NOTE | 2024-05-14 12:11 | CM.NOTE ---
Medicare Outpatient Observation Notice discussed with pt, pt verbalizes understanding and signs paper. Original given to pt and copy placed in pt's chart.
[2024-05-14] MEDS: LACTATED RINGER'S SOLUTION 1,000 ML 100 ML IV (14:09)
[2024-05-14 14:13] LABS: C. Difficile PCR INCONCLUSIVE
[2024-05-14] MEDS: HYDROCORTISONE 20 MG TABLET 10 MG PO (21:29)
[2024-05-15] VITALS (7 sets, daily range): BP systolic 165; BP diastolic 82; PULSE 63–69; O2SAT 92–95
[2024-05-15] MEDS: LACTATED RINGER'S SOLUTION 1,000 ML 100 ML IV (00:45)
[2024-05-15] MEDS: HEPARIN SODIUM (PORCINE) 5,000 UNIT/ML VIAL 5000 UNIT SUBQ (05:36)
[2024-05-15] MEDS: LEVOTHYROXINE SODIUM 100 MCG TABLET PO (05:36)
[2024-05-15] MEDS: PIPERACILLIN SODIUM/TAZOBACTAM 3.375 GM in 0.9 % SODIUM CHLORIDE 50 ML IV (05:36)
[2024-05-15 06:11] LABS: Basophils Absolute Auto 0.1 10^3/uL (0.0-0.1); Basophils Percent Auto 0.4 % (0.2-2.0); Eosinophils Absolute Auto 0.1 10^3/uL (0.0-0.7); Eosinophils Percent Auto 0.4 % (0.9-7.0); Hematocrit 35.2 % (42.0-54.0); Hemoglobin 12.1 g/dL (14.0-18.0); Immature Granulocytes Abs Auto 0.05 10^3/uL (0.00-0.03); Immature Granulocytes Pct Auto 0.4 % (0.0-0.5); Lymphocytes Absolute Auto 1.3 10^3/uL (1.2-3.8); Lymphocytes Percent Auto 9.5 % (20.5-60.0); Mean Corpuscular HGB Conc 34.4 g/dL (29.9-35.2); Mean Corpuscular Hemoglobin 31.3 pg (25.9-34.0); Mean Corpuscular Volume 91.2 fL (80.0-94.0); Mean Platelet Volume 12.7 fL (9.5-13.5); Monocytes Absolute Auto 0.9 10^3/uL (0.3-0.8); Monocytes Percent Auto 6.8 % (1.7-12.0); Neutrophils Absolute Auto 10.9 10^3/uL (1.4-6.5); Neutrophils Percent Auto 82.5 % (43.0-75.0); Platelet Count 190 10^3/uL (150-450); Red Blood Count 3.86 10^6/uL (4.70-6.10); White Blood Count 13.2 10^3/uL (4.0-11.0)
[2024-05-15 06:27] LABS: Alanine Aminotransferase 34 U/L (16-63); Albumin Globulin Ratio 0.9; Albumin Level 2.4 g/dL (3.4-5.0); Alkaline Phosphatase 47 U/L (46-116); Anion Gap 10.1; Aspartate Amino Transferase 23 U/L (15-37); BUN Creatinine Ratio 5.3; Bilirubin Total 0.9 mg/dL (0.2-1.0); Calcium 8.2 mg/dL (8.5-10.1); Carbon Dioxide 26.4 mmol/L (21.0-32.0); Chloride 105 mmol/L (98-107); Estimated GFR (African America 49 (>=60 mL/min/1.73m^2); Estimated GFR (Non-African Ame 40 (>=60 mL/min/1.73m^2); Globulin 2.8 g/dL; Glucose 149 mg/dL (74-106); Potassium 4.5 mmol/L (3.5-5.1); Sodium 137 mmol/L (136-145); Total Protein 5.2 g/dL (6.4-8.2)
[2024-05-15] MEDS: HYDROCORTISONE 20 MG TABLET PO (08:18)
[2024-05-15] MEDS: ATORVASTATIN CALCIUM 40 MG TABLET PO (08:18)
[2024-05-15] MEDS: PANTOPRAZOLE SODIUM 40 MG VIAL IV (08:18)
[2024-05-15] MEDS: CITALOPRAM HYDROBROMIDE 20 MG TABLET PO (08:18)
[2024-05-15] MEDS: DONEPEZIL HCL 10 MG TABLET PO (08:18)
[2024-05-15] MEDS: AMANTADINE HCL 100 MG CAPSULE PO (08:18)
[2024-05-15] MEDS: ASPIRIN 81 MG TABLET.DR PO (08:19)
[2024-05-15] MEDS: GABAPENTIN 400 MG CAPSULE 800 MG PO (08:22)
[2024-05-15] MEDS: METOPROLOL TARTRATE 100 MG TABLET PO (08:22)
--- NOTE | 2024-05-15 08:40 | P.DS_ITS ---
DS: Providers Provider Date of admission: 05/13/24 14:20 Primary care physician: Janette Molina MD DS: Diagnosis Discharge Diagnosis (1) SIRS (systemic inflammatory response syndrome): (2) Hypotension due to hypovolemia: (3) Epigastric pain: (4) Anorexia: (5) Intractable nausea: (6) Diarrhea: Qualifiers: Diarrhea type: unspecified type Qualified Code(s): R19.7 - Diarrhea, unspecified (7) TIFFANI (acute kidney injury): (8) [place] disease: (9) Hypertension: Qualifiers: Hypertension type: primary hypertension Qualified Code(s): I10 - Essential (primary) hypertension (10) Parkinson disease: Qualifiers: Dyskinesia presence: without dyskinesia Fluctuating manifestations: without fluctuating manifestations Qualified Code(s): G20.A1 - Parkinson's disease without dyskinesia, without mention of fluctuations (11) HLD (hyperlipidemia): Qualifiers: Hyperlipidemia type: unspecified Qualified Code(s): E78.5 - Hyp erlipidemia, unspecified Plan (1) SIRS (systemic inflammatory response syndrome): Assessment and Plan: No clear cut source of infection. This could be due to dehydration from nausea/poor PO intake and diarrhea. He could have C diff or infectious diarrhea. Stool sent for testing. His SIRS could also be due to bacteremia from Dental extraction. Blood cultures pending. He is better hemodynamically after IV hydration. C/w IVF for now as still dry and has poor PO intake. Empirically being treated with zosyn for now. (2) Hypotension due to hypovolemia: Assessment and Plan: Resolved. BP stable now. (3) Epigastric pain: Assessment and Plan: Unclear etiology. Could be due to gastroenteritis or gastritis. Started on IV protonix. On empirical zosyn. testing for C diff ordered. No acute finding on CT. lipase normal. (4) Anorexia: Assessment and Plan: Presumably due to infectious colitis/gastorenteritis. (5) Intractable nausea: Assessment and Plan: Was able to eat a little but still has anorexia, and developed worsening of nausea after he ate. Cw/ zofran as needed (6) Diarrhea: Assessment and Plan: Could be due to Amoxicillin vs C diff vs infectious gastroenteritis. C diff testing ordered. Empirically on Zosyn No acute finding on CT. Qualifiers: Diarrhea type: unspecified type Qualified Code(s): R19.7 - Diarrhea, unspecified (7) TIFFANI (acute kidney injury): Assessment and Plan: Baseline Cr is about 1.5, presented with Cr of 2.01, improving with hydration. c/w same. 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 One time dose of IV hydrocortisone to help with acute illness. (9) Hypertension: Assessment and Plan: Stable now. Resume lisinopril. Qualifiers: Hypertension type: primary hypertension Qualified Code(s): I10 - Essential (primary) hypertension (10) Parkinson disease: Assessment and Plan: c.w amantadine Qualifiers: Dyskinesia presence: without dyskinesia Fluctuating manifestations: without fluctuating manifestations Qualified Code(s): G20.A1 - Parkinson's disease without dyskinesia, without mention of fluctuations (11) HLD (hyperlipidemia): Assessment and Plan: c/w lipitor. Qualifiers: Hyperlipidemia type: unspecified Qualified Code(s): E78.5 - Hyper lipidemia, unspecified DS: Summary Hospital Course Hospital Course: She was admitted with meeting SIRS criteria with tachycardia, respiratory distress, lactic acidosis, acute kidney injury on top of chronic kidney disease and significant leukocytosis, leukocytosis was better yesterday acute kidney injury better yesterday, still with significant weakness and requiring IV fluid hydration. When I saw him today, he is feeling much improved, ambulating without difficulty his white blood cell count is still elevated but improved, his creatinine is improved back to baseline, since he got better with the change in antibiotics will send patient home with different antibiotics today. Medications see list. Follow-up with PCP next week. Time Spent with Patient Time attestation: Total time spent providing and/or coordinating discharge services: Exam Constitutional Vital Signs, click to edit/add: Last Vital Signs Temp 97.9 F 05/14/24 22:00 Pulse 68 05/15/24 07:59 Resp 18 05/15/24 05:42 BP 165/82 H 05/15/24 05:42 Pulse Ox 95 05/15/24 05:42 O2 Del Method Room Air 05/15/24 05:42 Documenting provider has reviewed patient's vital signs: yes Common normals: oriented x3 General appearance: cooperative and ill appearing Nutritional appearance: obese HENMT Common normals: normocephalic and head/scalp atraumatic Head and scalp: normocephalic and atraumatic Eye Common normals: conjunctivae normal and no scleral icterus Conjunctiva: conjunctiva(e) normal Respiratory Common normals: normal respiratory effort and clear to auscultation bilaterally Effort & inspection: able to speak in complete sentences Auscultation: clear to auscultation bilaterally Cardio Common normals: regular rate, S1 normal heart sound and S2 normal heart sound Rate: regular rate Heart sounds: S1 normal and S2 normal GI Common normals: Normal to inspection, nondistended, normoactive bowel sounds present, soft to palpation and no hepatosplenomegaly Palpation: soft, tender Details: epigastric and no hepatosplenomegaly Extremity Common normals: no clubbing, cyanosis or edema Neuro Common normals: oriented x3, moves all extremities and no focal motor deficits Psych Common normals: mental status grossly normal, denies hallucinations, denies homicidal ideation and denies suicidal ideation DS: Data Data Completed and Pending Labs on day of discharge: Labs from last 24 hours 05/15/24 05/14/24 05/14/24 05:35 12:15 05:41 WBC 13.2 H RBC 3.86 L Hgb 12.1 L Hct 35.2 L MCV 91.2 MCH 31.3 MCHC 34.4 RDW 12.0 Plt Count 190 MPV 12.7 Neut % (Auto) 82.5 H Lymph % (Auto) 9.5 L Robertson % (Auto) 6.8 Eos % (Auto) 0.4 L Baso % (Auto) 0.4 Neut # (Auto) 10.9 H Lymph # (Auto) 1.3 Robertson # (Auto) 0.9 H Eos # (Auto) 0.1 Baso # (Auto) 0.1 Abs Immat Gran (auto) 0.05 H Imm/Tot Granulo (auto) 0.4 Sodium 137 Potassium 4.5 Chloride 105 Carbon Dioxide 26.4 Anion Gap 10.1 BUN 9.0 Creatinine 1.69 H Est GFR ( Amer) 49 L Est GFR (Non-Af Amer) 40 L BUN/Creatinine Ratio 5.3 Glucose 149 H Calcium 8.2 L Total Bilirubin 0.9 AST 23 ALT 34 Alkaline Phosphatase 47 Total Protein 5.2 L Albumin 2.4 L Globulin 2.8 Albumin/Globulin Ratio 0.9 Lipase 76.0 C. difficile Toxin PCR Inconclusive Discharge Plan Discharge Disposition: Home, Self-Care Discharge Medications: New amoxicillin-pot clavulanate 875-125 mg tablet 1 tab PO BID Qty: 14 0RF Continued metoprolol tartrate 100 mg tablet 100 mg PO BID donepezil 10 mg tablet 10 mg PO DAILY levothyroxine 100 mcg tablet 100 mcg PO .ACB gabapentin 800 mg tablet 800 mg PO BID hydrocortisone 10 mg tablet 20 mg PO QAM fludrocortisone 0.1 mg tablet 0.1 mg PO .qod memantine 10 mg tablet 10 mg PO BID aspirin [Adult Low Dose Aspirin] 81 mg tablet,delayed release (DR/EC) 81 mg PO DAILY atorvastatin 40 mg tablet 40 mg PO DAILY citalopram [Celexa] 20 mg tablet 20 mg PO DAILY Ozempic 1 mg/dose (4 mg/3 mL) pen injector 1 mg subcut QWEEK lisinopril [Zestril] 5 mg tablet 5 mg PO DAILY amantadine HCl 100 mg capsule 100 mg PO DAILY hydrocortisone [Cortef] 10 mg tablet 10 mg PO QPM Discontinued amoxicillin 500 mg tablet 500 mg PO TID Patient Comments: 05/10/24-FOR 10 DAYS Activity: increase activity as tolerated Diet: advance to your usual diet Print Language: Cuban Patient Instructions: Dehydration (DC), Hypomagnesemia (DC) Forms: Portal Instructions Follow Up Appointments: 2024 @ 1pm with Dr. Molina [phone] Discharge Date/Time: 05/15/24 09:27
--- NOTE | 2024-05-18 13:32 | CM.DCFOLLOWU ---
1st attempt 05/18/24, no answer
--- NOTE | 2024-05-20 15:35 | CM.DCFOLLOWU ---
Person spoke with: patient How are you feeling? well, back to normal How is your pain? none Did you understand your discharge instructions?yes Do you have any questions about your discharge instructions?no Were you given any prescriptions at discharge? yes Were you able to get your prescriptions filled?yes Do you understand how to take your medications as ordered?yes Do you have any questions about your follow up appointment and do you plan to keep your follow up appointment? none, was not aware of follow up today, will call Dr. Molina today or tomorrow to reschedule Is there anything else that you would like to discuss?no Questions/Comments/Concerns/Other:none
== END 2024-05-15 09:27 | disposition home or self-care (01) ==
LOC: ER 13:28 → MS 05-15 06:42
PROVIDERS: Admitting Provider Internal Medicine; Emergency Provider Emergency Medicine; PCP Family Medicine; Visit Provider Family Medicine
DX: E86.0 Dehydration (principal); N18.30 Chronic kidney disease, stage 3 unspecified; G20.A1 Parkinson's disease without dyskinesia, without mention of fluctuations; E27.1 Primary adrenocortical insufficiency; N17.9 Acute kidney failure, unspecified; R65.10 Systemic inflammatory response syndrome (SIRS) of non-infectious origin without acute organ dysfunction; I95.9 Hypotension, unspecified; E86.1 Hypovolemia; R63.0 Anorexia; R11.0 Nausea; R19.7 Diarrhea, unspecified; I12.9 Hypertensive chronic kidney disease with stage 1 through stage 4 chronic kidney disease, or unspecified chronic kidney disease; E78.5 Hyperlipidemia, unspecified; Z98.818 Other dental procedure status; R10.13 Epigastric pain; R06.03 Acute respiratory distress; R53.1 Weakness; Z95.1 Presence of aortocoronary bypass graft; Z90.49 Acquired absence of other specified parts of digestive tract; M51.369 Other intervertebral disc degeneration, lumbar region without mention of lumbar back pain or lower extremity pain; Z68.37 Body mass index [BMI] 37.0-37.9, adult; E66.9 Obesity, unspecified; E83.42 Hypomagnesemia; K29.70 Gastritis, unspecified, without bleeding
CPT/HCPCS: 36415; 71045; 74176; 80053; 81003; 83605; 83690; 83735; 84484; 85025; 85610; 87040; 87420; 87493; 87804; 87811; 93005; 94761; 96361; 96365; 96366; 96367; 96368; 96372; 96375; 96376; 99285; G0378; J1644; J1720; J2405; J2543; J3475; J8499

== ENCOUNTER 2024-05-26 08:39 | Outpatient (OUT) | payer OTHER, SELFPAY ==
--- NOTE | 2024-05-26 09:00 | CA_ITS ---
Patient Name: DON ELKINS MR#: [id number] : 1950 Exam Date: 05/26/2024 Ordering Doctor: DR DAMARIS RODRIGUEZ M.D. ECHOCARDIOGRAM REPORT PROCEDURE: CA ECHO DOPPLER COMPLETE INDICATIONS: Mitral valve and aortic valve insufficiency, CABGx3, hypertension, diabetes COMPARISON: None. DESCRIPTION: COMPLETE ECHOCARDIOGRAM Real-time transthoracic echocardiography with 2D, M-mode, spectral and color flow Doppler performed. QUALITY: Technical quality was good. LEFT VENTRICLE: Normal chamber size. Proximal septal hypertrophy (sigmoid septum). LV EF: Global left ventricular systolic function is normal; visually estimated ejection fraction is 55 to 60%. Abnormal septal motion; this is not an unusual finding in the post open heart patient. DIASTOLIC: Normal diastolic function. ATRIAL SEPTUM: Inadequately seen. LEFT ATRIUM: Normal chamber size. RIGHT ATRIUM: Normal chamber size. RIGHT VENTRICLE: Normal chamber size. Normal right ventricular systolic function. TRICUSPID VALVE: Normal mobility and thickness. No stenosis with trivial regurgitation. No evidence of pulmonary hypertension. RVSP 22 mmHg MITRAL VALVE: Normal mobility and thickness. No evidence of mitral valve stenosis. There is no mitral annular calcification. Trivial mitral regurgitation. AORTIC VALVE: Normal trileaflet appearance. No visible sclerosis. Normal leaflet mobility. No aortic valve stenosis. Trivial aortic regurgitation. AORTIC ROOT: Normal diameter and appearance. Ascending aorta is normal in size. PULMONIC VALVE: Normal thickness and mobility. No stenosis. Trivial regurgitation. PERICARDIUM: No evidence of pericardial effusion. IVC: Collapses with inspirations. IVC is normal in size. CONCLUSION: 1. Global left ventricular systolic function is normal; visually estimated ejection fraction is 55 to 60% 2. Normal right ventricular size and systolic function 3. Normal diastolic function 4. The left atrium is normal in size 5. No significant valvular abnormalities Adult Echocardiography Procedure Report Left Ventricle LVEDD (3.7 - 5.6 cm): 4.58 cm LVESD (2.2 - 4.0 cm): 3.75 cm LVIVS thickness (0.6 - 1.2 cm): 1.97 cm LVPW thickness (0.5 - 1.0 cm): 1.14 cm e': 0.08 m/s E - e': 6.09 LVOT Max Gradient: 1.95 mm[Hg] LVOT Area (cm2): 0.70 m/s Peak Velocity (LVOT): 0.70 m/s Mean Velocity (LVOT): 0.51 m/s LVOT Diameter 2.36 cm Left Atrium LA Volume Index (2D A2C): 24.24 ml/m2 Left Atrium Systolic Dimension: 3.82 cm Mitral Valve MV E to A Ratio: 0.59 Mitral Valve A-Wave Peak Velocity: 0.79 m/s Mitral Valve E-Wave Peak Velocity: 0.47 m/s Right Ventricle Aorta AO Root Diam: 3.24 cm Ascending Ao Diam: 2.78 cm Aortic Valve AoV Area (Peak Jeremiah): 3.34 cm2, 3.34 cm2 AoV Area (VTI): 3.23 cm2, 3.23 cm2 Peak Velocity(Antegrade Flow): 0.91 m/s Peak Gradient(Antegrade Flow): 3.32 mm[Hg] Mean Velocity(Antegrade Flow): 0.69 m/s Mean Gradient(Antegrade Flow): 2.04 mm[Hg] Velocity Time Integral: 20.87 cm Tricuspid Valve Peak Velocity (Regurgitant Flow): 2.20 m/s Pulmonic Valve Mean Gradient: 2.10 mm[Hg] Mean Velocity: 0.67 m/s Peak Velocity: 1.04 m/s, 1.06 m/s Peak Gradient: 4.48 mm[Hg], 4.33 mm[Hg] Right Atrium Right Atrium Systolic Pressure: 22.21 ml, 22.21 ml Dictated by: Damaris Rodriguez M.D. on 05/26/2024 at 10:27 Approved by: Damaris Rodriguez M.D. on 05/26/2024 at 10:30
== END 2024-05-26 08:40 | disposition home or self-care (01) ==
LOC: CARD 08:39
PROVIDERS: PCP Family Medicine; Visit Provider Internal Medicine Interventional Cardiology
DX: I35.1 Nonrheumatic aortic (valve) insufficiency (principal)
CPT/HCPCS: 93306

== ENCOUNTER 2024-07-07 06:48 | Outpatient (OUT) | payer OTHER, SELFPAY ==
--- NOTE | 2024-07-07 | PCN_ITS ---
CARDIAC STRESS TEST Requesting Physician: Procedure Date: 07/07/2024 LEXISCAN EKG STRESS TEST INDICATION FOR THE TEST: Coronary artery disease. The procedure, in detail, including risks and benefits were discussed with the patient and he was agreeable to proceed. Resting heart rate 65 beats per minute, resting blood pressure 130/74 mm/Hg. Resting EKG showed normal sinus rhythm, heart rate 69 beats per minute, normal EKG. The patient was injected with 0.4 mg IV Lexiscan and he was monitored for a few minutes. Patient did not have any symptoms. Max heart rate was 85 beats per minute, representing 57% of age predicted maximum heart rate. Max blood pressure 130/74 mm/Hg. EKG throughout the test did not show significant T or ST changes or arrhythmias. CONCLUSION: 1. Negative Lexiscan stress test for ischemia. 2. The nuclear images result will be reported separately by Radiology. CHAD
--- OUTSIDE RECORDS SUMMARY | 2024-07-07 06:53 | XMS_ITS | CCD ---
Author Organization [facility] Care Team Providers Care License Examiner Name Role Phone Kenneth Cheng Unavailable Unavailable Levi Pisano Unavailable Unavailable UNKNOWN, PCP Unavailable Unavailable SY, JC VASUDEO Unavailable Unavailable Sy, Jc Vasudeo Attending Unavailable Sal Sabillon Primary Care Provider ROBERTO, REID H. Referring Unavailable SAL SABILLON Primary Care Unavailable ROBERTO, REID H. Admitting Unavailable ROBERTO, REID H. Attending Unavailable SAL SABILLON Primary Care Unavailable ROBERTO, REID H. Attending Unavailable ROBERTO, REID H. Referring Unavailable SAL SABILLON Primary Care Unavailable SAL SABILLON Primary Care Unavailable CHATHA, GERARDO Admitting Unavailable CHATHA, GERARDO Attending Unavailable ROBERTO, REID H. Consulting Unavailable ANDREW WRIGHT Consulting Unavailable SCDENNYIN ELLIE Admitting Unavailable SCDENNYINELLIE Attending Unavailable SAL SABILLON Primary Care Unavailable CHATHA, GERARDO Consulting Unavailable MARJ DEMARCO Admitting Unavailable MARJ DEMARCO Attending Unavailable SAL SABILLON Primary Care Unavailable SAL SABILLON Referring Unavailable Geovanni, Frederick Unavailable GEOVANNI, FREDERICK Admitting Unavailable GEOVANNIMARIANOUL Attending Unavailable GEOVANNI, FREDERICK Consulting Unavailable DR SAL SABILLON Primary Care Unavailable DR SAL SABILLON Primary Care Unavailable BECCA JUNE Attending Unavailable BECCA JUNE Admitting Unavailable DR SAL SABILLON Primary Care Unavailable BECCA JUNE Admitting Unavailable BECCA JUNE Attending Unavailable BECCA JUNE Consulting Unavailable DR SAL SABILLON Primary Care Unavailable ELBERONICA, DR CHANG Attending Unavailable JENNIFER, DR CHANG Consulting Unavailable JENNIFER, DR CHANG Admitting Unavailable DR SAL SABILLON Primary Care Unavailable GEOVANNI, FREDERICK Admitting Unavailable GEOVANNI, FREDERICK Attending Unavailable FREDERICK DALTON Consulting Unavailable Sal Sabillon Unavailable Sal Sabillon MD Primary Care Provider [phone] Sal Sabillon MD Primary Care Provider Sal Sabillon MD Primary Care Provider Sal Sabillon MD Primary Care Provider [phone] Jeannie Farnsworth DO Attending Provider [phone] OSCAR ARVIZU Attending Unavailable OLGA VOGEL Attending Unavailable OSCAR ARVIZU Attending Unavailable DEBBIE GOMEZ Attending Unavailable TYLER ESTRADA Attending Unavailable Donald Islas MD Attending Provider Jeannie Farnsworth Attending Unavailable Jeannie Farnsworth Admitting Unavailable Sal Sabillon Primary Care Unavailable Sal Sabillon Primary Care Unavailable Donald Islas Attending Unavailable Donald Islas Admitting Unavailable DAMARIS MEIER Attending Unavailable BECCA JUNE Attending Unavailable Medications Current Medications Medication Drug [...] Active amantadine hydrochloride 100 mg oral tablet (7 sources) Influenza A M2 Protein Inhibitor Start: 10-27-2023 take 1 tablet by mouth once daily amantadine (Symmetrel) 100 MG tablet Take 1 tablet by mouth Daily 10/27/2023 Active take 1 tablet by jules th every twenty-four hours Amantadine HCl 100 MG 1 tablet Orally Once a day Active aspirin 81 mg chewable tablet (20 sources) Platelet Aggregation Inhibitor, Nonsteroidal Anti-inflammatory Drug Start: 08-14-2023 take 1 tablet by mouth once daily Aspirin 81 mg tablet,chewable Active 81 MG PO Daily August 13, 2023 11:00pm Start: 03-15-2018 End: 09-11-2020 take 1 tablet by mouth once daily Aspirin 81 mg Tablet,Delayed Release (Dr/Ec) Discontinued 81 MG PO Daily 0 March 15, 2018 11:00pm September 11, 2020 5:25pm take 1 tablet by jules th once daily Aspirin 81 81 MG 1 tablet Orally Once a day Active atorvastatin 40 mg oral tablet (20 sources) HMG-CoA Reductase Inhibitor Start: 08-14-2023 take 1 tablet by mouth once daily Atorvastatin 40 mg tablet Active 40 MG PO Daily August 13, 2023 11:00pm Start: 03-16-2018 End: 08-14-2023 take 1 tablet by mouth once daily at bedtime Atorvastatin 80 mg Tablet Discontinued 80 MG PO Daily at bedtime 0 March 15, 2018 11:00pm August 14, 2023 12:36pm take 1 tablet by jules th in the morning atorvastatin (Lipitor) 20 MG tablet Take 1 tablet by mouth in the morning. 0 Active calcium chloride 0.0014 meq/ml / potassium chloride 0.004 meq/ml / sodium chloride 0.103 meq/ml / sodium lactate 0.028 meq/ml injectable solution (2 sources) Start: 04-05-2019 lactated ringers infusion cholestyramine resin 4000 mg powder for oral suspension (8 sources) Bile Acid Sequestrant take 1 dose by mouth once daily cholestyramine (Questran) 4 g packet use 1 (ONE) PACKET BY MOUTH DAILY Active citalopram 20 mg oral tablet (20 sources) Serotonin Reuptake Inhibitor Start: 03-15-2018 End: 08-14-2023 take 1 tablet by mouth once daily Citalopram 20 mg tablet Active 20 MG PO Daily August 13, 2023 11:00pm Coenzyme Q-10 100 MG (1 source) take 1 capsule by mouth once daily Coenzyme Q-10 100 MG 1 capsule with a meal Orally Once a day Active ubidecarenone 100 mg oral capsule (18 sources) Start: 08-14-2023 take 10 capsules by mouth once daily Coenzyme Q10 100 mg capsule Active 100 MG PO Daily August 13, 2023 11:00pm Start: 03-15-2018 End: 03-16-2018 Coenzyme Q10 (Co Q-10) 100 m g Capsule Discontinued 100 MG PO Daily March 14, 2018 11:00pm March 16, 2018 12:09pm take 1 capsule by [facility] every twenty-four hours Coenzyme Q-10 100 MG 1 capsule with a meal Orally Once a day Active CPAP Machine MISC (4 sources) CPAP Machine MIS C by Does not apply route 0 Active donepezil hydrochloride 10 mg oral tablet (17 sources) Start: 12-23-2023 End: 12-22-2024 take 1 tablet by mouth once daily donepezil (Aricept) 10 MG tablet Indications: Cognitive decline Take 1 tablet (10 mg) by mouth Daily 30 tablet 11 12/23/2023 12/22/2024 Active Start: 09-11-2020 End: 09-14-2020 take 1 tablet by mouth once daily Donepezil 10 mg tablet Discontinued 10 MG PO Daily September 10, 2020 11:00pm September 14, 2020 8:22pm 72 hr fentaNYL 0.025 mg/hr transdermal system [...] (SUBL IMAZE) injection 50 mcg Fish Oils (5 sources) take 1 capsule by mouth once [...] other day 12/30/2023 Active Start: 08-14-2023 take 1 tablet by jules th four times weekly Fludrocortisone 0.1 mg tablet Active 0.1 MG PO 4 times per week August 13, 2023 11:00pm Start: 04-08-2019 End: 04-13-2019 take 0.1 mg by mouth once daily 0.1 mg, Oral, DAILY, First dose (after last modification) on 04/10/19 at 0900 Start: 03-15-2018 End: 08-14-2023 take 1 tablet by mouth every other day Fludrocortisone 0.1 mg tablet Discontinued 0.1 MG PO every other day March 14, 2018 11:00pm August 14, 2023 12:37pm take 1 tablet by jules th four [...] daily January 29, 2024 12:00am Start: 12-23-2023 take 1 tablet by jules th twice daily Gabapentin 800 mg tablet Active 800 MG PO Twice daily January 28, 2024 11:00pm Start: 08-14-2023 End: 01-29-2024 take 1 tablet by mouth twice daily Gabapentin 600 mg tablet Discontinued 600 MG PO Twice daily August 13, 2023 11:00pm January 29, 2024 2:08pm Start: 09-11-2020 End: 08-14-2023 take 1 tablet by mouth at bedtime Gabapentin 800 mg tablet Discontinued 800 MG PO Bedtime September 10, 2020 11:00pm August 14, 2023 12:36pm Start: 09-11-2020 End: 08-14-2023 gabapentin (Neurontin) 800 [...] 2100 Do not crush or break. hydrocortisone acetate 25 mg rectal suppository (20 sources) Corticosteroid Start: 05-31-2024 Hydrocortisone Acetate (Anusol-Hc) 25 mg suppository Active 25 MG NH Daily 11 22May 31, 2024 12:00am Start: 05-05-2024 take 2 tablets by mo uth in the morning, then take 1 tablet by mouth in the evening hydrocortisone (Cortef) 10 MG tablet Indications: Type 2 diabetes mellitus with other circulatory complications (CMS/HCC) TAKE 2 TABLETS BY MOUTH IN THE MORNING AND ONE TABLET BY MOUTH IN THE EVENING 270 tablet 1 05/05/2024 Active Start: 08-14-2023 take 1 tablet by jules th once daily at bedtime Hydrocortisone 10 mg tablet Active 10 MG PO Daily at bedtime August 13, 2023 11:00pm Start: 08-14-2023 take 1 tablet by jules th once daily in the morning Hydrocortisone 20 mg tablet Active 20 MG PO Every morning August 13, 2023 11:00pm Start: 04-08-2019 take 20 mg by mouth twice kimo y 20 mg, Oral, 2 TIMES DAILY, First dose (after last modification) on Fri04/09/19 at 2100 Start: 03-15-2018 End: 08-14-2023 take 1 tablet by mouth twice daily Hydrocortisone 20 mg Tablet Discontinued 20 MG PO Twice daily March 14, 2018 11:00pm August 14, 2023 12:36pm insulin glargine 100 unt/ml injectable solution (8 [...] tablet (20 sources) l-Thyroxine Start: 01-29-2024 take 1 tablet by mouth once daily Levothyroxine 100 mcg tablet Active 100 MCG PO Daily January 28, 2024 11:00pm Start: 04-10-2019 take 150 ug by mouth once kmio y 150 mcg, Oral, DAILY, First dose (after last modification) on Fri04/10/19 at 0700 Tube feeding (TF) interaction, obtain physician order to manage, recommend holding TF for 30 minutes before and after dose. Start: 03-15-2018 End: 01-29-2024 take 1 tablet by mouth once daily Levothyroxine 150 mcg tablet Discontinued 150 MCG PO Daily August 13, 2023 11:00pm January 29, 2024 2:07pm take 1 tablet by jules th once [...] Angiotensin Converting Enzyme Inhibitor Start: 08-14-2023 take 1 tablet by mouth once daily Lisinopril 5 mg tablet Active 5 MG PO Daily August 13, 2023 11:00pm Start: 04-08-2019 take 10 mg by mouth once daily 10 mg, Oral, DAILY, First dose (after last modification) on 04/10/19 at 0900 Start: 03-15-2018 End: 08-14-2023 take 1 tablet by mouth once daily Lisinopril 20 mg tablet Discontinued 20 MG PO Daily March 14, 2018 11:00pm August 14, 2023 12:36pm take 1 tablet by jules th once daily lisinopril (PRINIVIL;ZESTRIL) 10 MG tablet Take 10 mg by mouth daily 0 Active magnesium gluconate 550 mg oral tablet (5 sources) take 1 tablet by mouth once daily magnesium 30 MG tablet Take 1 tablet by mouth Daily Active magnesium oxide 400 mg oral tablet (10 sources) Start: 08-14-2023 Magnesium Oxide 400 mg (241.3 mg magnesium) tablet Active 400 MG PO Every 48 hours August 13, 2023 11:00pm Start: 01-16-2023 take 1 tablet by jules th every other day Magnesium Oxide 400 MG 1 Tablet Orally every other day for 90 days Dec, Active Start: 02-08-2019 End: 04-08-2019 take 1 tablet by mouth once daily magnesium oxide (MAG-OX) 400 (241.3 Mg) MG TABS tablet Take 400 mg by mouth daily 02/08/2019 04/08/2019 Discontinued memantine hydrochloride 10 mg oral tablet (19 sources) U-tuivij-A-aspartate Receptor Antagonist Start: 08-14-2023 End: 12-22-2024 take 1 tablet by mouth once daily Memantine 10 mg tablet Active 10 MG PO Daily August 13, 2023 11:00pm take 1 tablet by mouth in the mo rning memantine (Namenda) 10 MG tablet Take 1 tablet by mouth in the morning and 1 tablet before bedtime. 0 Active metoprolol tartrate 100 mg oral tablet (20 sources) beta-Adrenergic Danica Start: 01-29-2024 take 1 tablet by mouth twice daily Metoprolol Tartrate 100 mg tablet Active 100 MG PO Twice daily January 28, 2024 11:00pm Start: 08-14-2023 End: 01-29-2024 take 1 tablet by mouth twice daily Metoprolol Tartrate 75 mg tablet Discontinued 75 MG PO Twice daily August 13, 2023 11:00pm January 29, 2024 2:09pm Start: 09-11-2020 End: 08-14-2023 take 1 tablet by mouth twice daily Metoprolol Tartrate 25 mg Tablet Discontinued 25 MG PO Twice daily September 10, 2020 11:00pm August 14, 2023 12:36pm Start: 04-08-2019 take 75 mg by mouth twice kimo y 75 mg, Oral, 2 TIMES DAILY, First dose (after last modification) on Fri04/09/19 at 2100 take 3 tablets by mo uth in the morning metoprolol tartrate (Lopressor) 25 MG tablet Take 3 tablets by mouth in the morning and 3 tablets before bedtime. Active Multiple Vitamins-Minerals (CENTRUM ADULT PO) (5 sources) take 1 tablet by mouth once [...] TAB PO Daily August 14, 2023 12:00am Multivitamin tablet (2 sources) Start: 2023 take 1 tablet by mouth once daily Multivitamin tablet Active 1 TAB PO Daily August 13, 2023 11:00pm [place] 3 Fish Oil (4 sources) [place] 3 Fish Oil one tablet daily Active [place]-3 Fatty Acids (FISH OIL) 600 MG CAPS (3 sources) [place]-3 Fatty Ac ids (FISH OIL) 600 MG CAPS Take by mouth daily 0 Active pantoprazole 40 mg delayed release oral tablet (2 sources) Proton Pump Inhibitor Start: 2018 take 40 mg by mouth once daily before breakfast 40 mg, Oral, DAILY BEFORE BREAKFAST, First dose (after last modification) on Fri04/10/19 at 0700 Do not crush or break. polyethylene glycol 3350 [id number] mg powder for oral solution (1 source) Osmotic Laxative Start: 2018 polyethylene glycol (GLYCOLAX) packet 17 g 100 ml potassium chloride 0.1 meq/ml injection (4 sources) Start: 2018 take 10 mL intravenous route every hour as needed 10 mEq, Intravenous, at 100 mL/hr, PRN, Potassium Replacement, Starting Fri04/09/19 at 1749 K Lab Replacement Action 3.1-3.5&nbs [...] 6.25 mg rOPINIRole 2 mg oral tablet (19 sources) Nonergot Dopamine Agonist Start: 04-08-2019 take 8 mg by mouth once daily in the evening 8 mg, Oral, EVERY EVENING, First dose (after last modification) on Fri04/09/19 at 1815 Start: 03-15-2018 End: 09-11-2020 take 1 tablet by mouth once daily Ropinirole 8 mg Tablet Extended Release 24 Hr Discontinued 8 MG PO Daily March 14, 2018 11:00pm September 11, 2020 5:29pm take 1 tablet by jules th every twenty-four hours in the morning rOPINIRole XL (Requip XL) 8 MG 24 hr tablet Take 1 tablet by mouth in the morning. Active take 8 mg by mouth o nce daily in the evening rOPINIRole (REQUIP) 0.5 MG tablet Take 8 mg by mouth every evening 0 Active semaglutide (Ozempic) 4 MG/3ML solution pen-injector (5 sources) Start: 01-20-2024 inject 1 mg by subcutaneous injection every week semaglutide (Ozempic) 4 MG/3ML solution pen-injector Inject 1 mg under the skin 1 (one) time per week 01/20/2024 Active Semaglutide,0.25 or 0.5MG/DOS, 2 MG/3ML solution pen-injector (5 sources) Start: 08-14-2023 Semaglutide,0.25 or 0.5MG/DOS, 2 MG/3ML solution pen-injector As Directed 08/14/2023 Active simvastatin 20 mg oral tablet (11 sources) HMG-CoA Reductase Inhibitor Start: 04-08-2019 take 20 mg by mouth once daily 20 mg, Oral, NIGHTLY, First dose (after last modification) on Fri04/09/19 at 2100 Start: 09-20-2018 take 1 tablet by jules th once daily simvastatin (ZOCOR) 20 MG tablet Take 20 mg by mouth nightly 0 09/20/2018 Active Start: 03-15-2018 End: 03-16-2018 take 1 tablet by mouth once daily Simvastatin 20 mg tablet Discontinued 20 MG PO Daily March 14, 2018 11:00pm March 16, 2018 12:09pm 3 ml sodium chloride 9 mg/ml injection [...] / vitamin e 5 unt oral capsule (5 sources) Start: 08-14-2023 take 1 capsule by [...] mg / cholecalciferol 125 unt oral tablet (10 sources) Vitamin D Start: 03-15-2018 End: 03-15-2018 take 1 tablet by mouth twice daily Calcium Carbonate-Vitamin D3 (Calcium 500 + D (D3)) 500 mg(1,250mg) -125 unit Tablet Discontinued 1 TAB PO Twice daily March 14, 2018 11:00pm March 15, 2018 10:48am Start: 03-15-2018 End: 09-11-2020 take 1 tablet by mouth once daily Calcium Carbonate-Vitamin D3 (Calcium 600 + D(3)) 600 mg calcium- 200 unit Capsule Discontinued 1 TAB PO Daily March 14, 2018 11:00pm September 11, 2020 5:33pm carbidopa 25 mg / levodopa 100 mg oral tablet (19 sources) Aromatic Amino Acid Decarboxylation Inhibitor, Aromatic Amino Acid Start: 09-11-2020 End: 09-14-2020 take 1 tablet by mouth twice daily Carbidopa-Levodopa 25-100 mg tablet Discontinued 25 - 100 TAB PO Twice daily September 10, 2020 11:00pm September 14, 2020 8:22pm take 1 tablet by jules th in [...] 04/05/2019 04/13/2019 Discontinued (Stop Taking at Discharge) [place]-3 Fatty Acids-Fish Oil (5 sources) Start: 03-15-2018 End: 03-16-2018 take 1 capsule by mouth once daily [place]-3 Fatty Acids-Fish Oil (Fish Oil) 300-1,000 mg Capsule Discontinued 1 CAP PO Daily March 14, 2018 11:00pm March 16, 2018 12:09pm Start: 03-15-2018 End: 03-16-2018 take 1 capsule by mouth once daily [place]-3 Fatty Acids-Fish Oil (Fish Oil) 300-1,000 mg [...] 1 mg ibuprofen 600 mg oral tablet (5 sources) Nonsteroidal Anti-inflammatory Drug Start: 03-15-2018 End: 03-16-2018 take 1 tablet by mouth twice daily Ibuprofen 600 mg Tablet Discontinued 600 MG PO Twice daily March 14, 2018 11:00pm March 16, 2018 12:09pm 10 ml lidocaine hydrochloride 10 mg/ml injection (1 source) Antiarrhythmic, Amide Local Anesthetic Start: 04-05-2019 End: 04-05-2019 lidocaine PF 1 % injection 1 mL metFORMIN hydrochloride 500 mg oral tablet (17 sources) Biguanide Start: 03-15-2018 End: 08-14-2023 take 1 tablet by mouth once daily Metformin 500 mg tablet Discontinued 500 MG PO Daily March 14, 2018 11:00pm August 14, 2023 12:36pm take 1 tablet by mouth in the mo rning metFORMIN (Glucophage) 500 MG tablet Take 1 tablet by mouth in the morning and 1 tablet before bedtime. 0 Active take 1 tablet by jules th every twelve hours metFORMIN HCl 1000 MG 1 tablet with a me al Orally twice a day Active Multivitamin (Multiple Vitamins) Tablet (5 sources) Start: 03-15-2018 End: 08-14-2023 take 1 tablet by mouth once daily Multivitamin (Multiple Vitamins) Tablet Discontinued 1 TAB PO Daily March 14, 2018 11:00pm August 14, 2023 12:35pm Start: 03-15-2018 End: 08-14-2023 take 1 tablet by mouth once daily Multivitamin (Multiple Vitamins) Tablet Discontinued 1 TAB PO Daily March 15, 2018 12:00am August 14, 2023 1:35pm omeprazole 40 mg delayed release oral capsule (17 sources) Proton Pump Inhibitor Start: 03-15-2018 End: 09-11-2020 take 1 capsule by mouth once daily Omeprazole 40 mg Capsule,Delayed Release(Dr/Ec) Discontinued 40 MG PO Daily March 14, 2018 11:00pm September 11, 2020 5:29pm ondansetron 4 mg disintegrating oral tablet (9 sources) Serotonin-3 Receptor Antagonist Start: 09-11-2020 End: 09-14-2020 take 1 tablet by mouth every six hours as needed for nausea and vomiting Ondansetron 4 mg tablet,disintegratin g Discontinued 4 MG PO Q6H as needed for nausea and vomiting September 10, 2020 11:00pm September 14, 2020 8:22pm Start: 04-07-2019 End: 04-07-2019 4 mg, Intravenous, EVERY 6 H OURS PRN, Nausea, Vomiting, Starting 04/09/19 at 1749 Start: 04-05-2019 End: 04-05-2019 ondansetron (ZOFRAN) injecti on 4 mg piperacillin-tazobactam (ZOS YN) 3.375 g in dextrose 5 % 50 mL IVPB (mini-bag) (1 source) Start: 04-07-2019 End: 04-08-2019 piperacillin-tazobactam (ZOS YN) 3.375 g in dextrose 5 % 50 mL IVPB (mini-bag) Semaglutide (5 sources) Start: 08-14-2023 End: 05-07-2024 Semaglutide (Ozempic) 0.25 m g or 0.5 mg (2 mg/3 mL) pen injector Discontinued MG SUBCUT As Directed August 13, 2023 11:00pm May 07, 2024 8:20am FreeTextSig: as directed Subcutaneous; Note: Source Status: Taking; Provider: Jesse Savage ( ) Start: 08-14-2023 Semaglutide (O zempic) 0.25 mg or 0.5 mg (2 mg/3 mL) pen injector Active MG SUBCUT As Directed August 14, 2023 12:00am FreeTextSig: as directed Subcutaneous; Note: Source Status: Taking; Provider: Jesse Savage ( ) sennosides, mcc 8.6 mg oral tablet (2 sources) Start: 04-05-2019 End: 04-19-2019 take 1 tablet by mouth twice daily senna (SENOKOT) 8.6 MG tablet Take 1 tablet by mouth 2 times daily for 14 days 28 tablet 0 04/05/2019 04/08/2019 Discontinued tiZANidine 4 mg oral tablet (17 sources) Central alpha-2 Adrenergic Agonist Start: 09-11-2020 End: 08-14-2023 take 1 tablet by mouth twice daily Tizanidine 4 mg tablet Discontinued 4 MG PO Twice daily September 10, 2020 11:00pm August 14, 2023 12:35pm tiZANidine HCl 4 MG as directed Oral [...] IVPB warfarin sodium 3 mg oral tablet (20 sources) Vitamin K Antagonist Start: 09-11-2020 End: 08-14-2023 take 3 tablets by mouth once daily Warfarin 3 mg Tablet Discontinued 9 MG PO Daily September 10, 2020 11:00pm August 14, 2023 12:35pm SUNDAYS ONLY Start: 09-11-2020 End: 08-14-2023 take 1 tablet by mouth five times weekly Warfarin 6 mg Tablet Discontinued 6 MG PO 5 TIMES PER WEEK September 10, 2020 11:00pm August 14, 2023 12:35pm Start: 09-11-2020 End: 08-14-2023 take 9 mg by mouth once daily Warfarin Discontinued 9 MG PO Daily September 11, 2020 12:00am August 14, 2023 1:35pm SUNDAYS ONLY Start: 04-13-2019 End: 04-14-2019 warfarin (COUMADIN) tablet 5 mg Start: 04-12-2019 warfarin (COUM [place]) tablet 7.5 mg Start: 04-10-2019 warfarin (COUM [place]) tablet 15 mg Start: 04-08-2019 End: 04-10-2019 warfarin (COUMADIN) tablet 1 0 mg take 5 mg by mouth once daily wa rfarin (COUMADIN) 4 MG tablet Indications: T-OO-Xrc-Fri Take 5 mg by mouth daily Indications: K-WJ-Yhq-Sun 0 Active take 1 tablet by jules th once daily warfarin (COUMADIN) 7.5 MG tablet Indications: -W- Take 7.5 mg by mouth daily Indications: M-W-F 0 Active Problems Active Problems Problem Classification Problem Date Documented Date Episodic/Chronic Abdominal pain (5 sources) Abdominal pain; Translations: [Unspecified abdominal pain] 09-14-2020 Episodic Acute and unspecified renal failure (10 sources) Acute kidney failure, unspecified; Translations: [Acute [...] posthemorrhagic anemia; Translations: [Acute posthemorrhagic anemia] Onset: Episodic Administrative/social admission (2 sources) Patient encounter status; Translations: [Dietary counseling and surveillance] 05-24-2024 Episodic Cancer of prostate (1 source) Personal history of malignant neoplasm of prostate; Translations: [Personal history of malignant neoplasm of prostate] Onset: Episodic Cardiac dysrhythmias (3 sources) Sinus tachycardia; Translations: [Sinus tachycardia] Onset: 9 04-10-2019 Chronic Chronic kidney disease (13 sources) Chronic kidney disease, unspecified; Translations: [Chronic [...] disease, unspecified; Translations: [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] Onset: [...] disease with esophagitis, without bleeding] Essential hypertension (15 sources) Hypertensive disorder; Translations: [Essential hypertension] Onset: 8 03-30-2019 Chronic Fluid and electrolyte disorders (12 sources) Hypokalemia; Translations: [Metabolic acidosis, normal anion gap (NAG)] Onset: 8 04-08-2019 Episodic Gastrointestinal hemorrhage (2 sources) Rectal hemorrhage; Translations: [Hemorrhage of anus and rectum] Onset: 5 05-31-2024 Episodic Heart valve disorders (7 sources) Nonrheumatic [...] episode, unspecified] Onset: 8 Nausea and vomiting (15 sources) Nausea and vomiting; Translations: [Nausea with vomiting, unspecified] Onset: 9 04-08-2019 Episodic Nutritional deficiencies (2 sources) Vitamin D deficiency; Translations: [Vitamin D deficiency, unspecified] 05-24-2024 Chronic Occlusion or stenosis of precerebral arteries (10 sources) Bilateral stenosis of carotid arteries; Translations: [Occlusion and stenosis of bilateral carotid arteries] Onset: 3 06-24-2023 Chronic Osteoarthritis (18 sources) Arthritis of hand; Translations: [Primary osteoarthritis, left hand] Chronic Other aftercare (1 source) 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; Translations: [FCI (current) use of insulin] Onset: 8 Episodic Other aftercare (1 source) 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) use of 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; Translations: [FCI (current) use of aspirin] Onset: 8 Episodic Other aftercare (2 sources) Long-term current use of systemic steroid; Translations: [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) use of systemic steroids] 05-24-2024 Episodic Other aftercare (1 source) 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) use of oral hypoglycemic drugs; Translations: [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) use of oral hypoglycemic drugs] Onset: 8 Other bone disease and musculoskeletal deformities (2 sources) Osteopenia; Translations: [Other specified disorders of bone density and structure, unspecified site] 05-24-2024 Episodic Other circulatory disease (2 sources) Orthostatic hypotension; Translations: [Orthostatic hypotension] Onset: 5 Episodic Other connective tissue disease (2 sources) Muscle pain; Translations: [MYALGIA, UNSPECIFIED SITE] Episodic Other diseases of kidney and ureters (11 sources) Secondary hyperparathyroidism; Translations: [Secondary hyperparathyroidism of [...] [Tinnitus, bilateral] 05-05-2024 Episodic Other endocrine disorders (6 sources) Primary adrenocortical insufficiency; Translations: [Glucocorticoid deficiency] Onset: 8 08-14-2023 Chronic Other endocrine disorders (11 sources) Brigida's disease; 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] Onset: 9 03-30-2019 Chronic Other endocrine disorders (2 sources) Primary adrenocortical insufficiency; 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] Onset: 8 Chronic Other endocrine disorders (2 sources) Hypoadrenalism; Translations: [Unspecified adrenocortical insufficiency] 05-24-2024 Chronic Other gastrointestinal disorders (5 sources) Diarrhea; Translations: [Diarrhea, unspecified] 09-14-2020 Episodic Other hereditary and degenerative nervous system conditions (1 source) Restless legs syndrome; Translations: [Restless legs syndrome] Onset: 8 Chronic Other hereditary and degenerative nervous system conditions (20 sources) Restless legs; Translations: [Restless legs syndrome] [...] upper limb] Chronic Other nervous system disorders (8 sources) Polyneuropathy; Translations: [Polyneuropathy, unspecified] Onset: 3 [...] Chronic Other nutritional; endocrine; and metabolic disorders (8 sources) Hypomagnesemia; Translations: [Hypomagnesemia] 08-14-2023 Chronic Other [...] conditions (not mental disorders or infectious disease) (20 sources) Raised TSH level; Translations: [Blood chemistry abnormal] Onset: 5 03-15-2018 Episodic Parkinson`s disease (20 sources) Parkinson's disease; Translations: [Parkinson's disease] Onset: 3 06-24-2023 Chronic Pulmonary heart disease (13 sources) Other pulmonary embolism without acute cor pulmonale; Translations: [Pulmonary embolism] Onset: 8 Resolved: 9 03-30-2019 Episodic Residual codes; unclassified (3 sources) Obstructive sleep apnea (adult) (pediatric); Translations: [Obstructive sleep apnea (adult)(pediatric)] Onset: 8 03-16-2024 Chronic Residual codes; unclassified (16 sources) Obstructive sleep apnea syndrome; Translations: [Obstructive sleep apnea] Onset: 4 04-10-2019 Chronic Residual codes; unclassified (8 sources) Periodic limb movement disorder; Translations: [Periodic limb movement disorder] Onset: 3 12-16-2022 Chronic Screening and history of mental health and substance abuse codes (1 source) Personal history of nicotine dependence; Translations: [Personal history of nicotine dependence] Onset: 8 Episodic Spondylosis; intervertebral disc disorders; other back problems (7 sources) Lumbar spondylosis; Translations: [Lumbar spondylosis] Onset: 9 03-30-2019 Chronic Thyroid disorders (5 sources) Hypothyroidism, unspecified; Translations: [Hypothyroidism] Onset: 8 05-24-2024 Chronic Unclassified (1 source) CHRN KIDNEY DISEASE [...] 04-09-2019 04-10-2019 Episodic Other connective tissue disease (10 sources) Neurogenic pain; Translations: [Neuralgia and neuritis, unspecified] Onset: 12-16-2022 06-24-2023 Episodic Other connective tissue disease (10 sources) Spasm of cervical paraspinous muscle; Translations: [Other muscle spasm] Onset: 10-11-2022 06-24-2023 Episodic Other connective tissue disease (8 sources) Cramp; Translations: [Cramp and spasm] Onset: [...] 04-09-2019 04-10-2019 Episodic Other nervous system disorders (10 sources) Impaired cognition; Translations: [Other symptoms and [...] Test Name Value Interpretation Reference Range Facility Office Visiton 06-23-2024 Follow-up visit [id number] Don Elkins 1950 M Date Provider Department Center 06/23/2024 Mark-DAMARIS MEIER LIDIA Lau Family History Problem Relation Age of Onset Diabetes Mother Coronary artery disease Brother Other Brother Heart failure Brother Family Status - Relation Status Age at Mother Brother Level of Service:47828 [place] OFFICE/OUTPATIENT ESTABLISHED MOD MDM 30 MIN Normal [facility] Basophils Auto (Bld) [#/Vol] Ordered By: Donald Islas on 06-01-2024 Basophils (Bld) [#/Vol] Automated basophil count 0.0-0.2 [facility] Basophils/100 WBC Auto (Bld) Ordered By: Donald Islas on 06-01-2024 Basophils/100 WBC (Bld) Automated basophil % . [facility] Complete Blood Count Auto Di ffon 06-01-2024 Basophils (Bld) [#/Vol] 0.1 10*3/uL Normal 0.0-0.2 [facility] Comment on above: Result Comment: PERF ORMED BY: [place] [address] PATHOLOGIST DIE STORAGE WORKER HYUN FRANK M.D. Performed By: #### C BC #### [address] Basophils/100 WBC (Bld) 1.0 % Normal . [facility] Comment on above: Performed By: #### C BC #### [address] Eosinophils (Bld) [#/Vol] 0.2 10*3/uL Normal 0.0-0.45 [facility] Comment on above: Performed By: #### C BC #### [address] Eosinophils/100 WBC (Bld) 2.1 % Normal . [facility] Comment on above: Performed By: #### C BC #### [address] Erythrocyte distribution width (RBC) [Ratio] 13.1 % Normal 12.0-14.8 [facility] Comment on above: Performed By: #### C BC #### [address] Hematocrit (Bld) [Volume fraction] 44.4 % Normal 38.8-50.0 [facility] Comment on above: Performed By: #### C BC #### [address] Hemoglobin (Bld) [Mass/Vol] 15.3 g/dL Normal 13.0-17.0 [facility] Comment on above: Performed By: #### C BC #### [address] Lymphocytes (Bld) [#/Vol] 1.9 10*3/uL Normal 1.00-4.8 [facility] Comment on above: Performed By: #### C BC #### [address] Lymphocytes/100 WBC (Bld) 21.2 % Normal . [facility] Comment on above: Performed By: #### C BC #### [address] MCH (RBC) [Entitic mass] 31.9 pg Normal 27.5-35.2 [facility] Comment on above: Performed By: #### C BC #### [address] MCV (RBC) [Entitic vol] 93.0 fL Normal 83.5-101 [facility] Comment on above: Performed By: #### C BC #### [address] Mean Corpuscular HGB Conc 34.3 g/dL Normal 32.5-35.6 [facility] Comment on above: Performed By: #### C BC #### [address] Monocytes (Bld) [#/Vol] 0.6 10*3/uL Normal 0.0-0.8 [facility] Comment on above: Performed By: #### C BC #### [address] Monocytes/100 WBC (Bld) 7.1 % Normal . [facility] Comment on above: Performed By: #### C BC #### [address] Neutrophils (Bld) [#/Vol] 6.0 10*3/uL Normal 1.8-7.7 [facility] Comment on above: Performed By: #### C BC #### [address] Neutrophils/100 WBC (Bld) 68.6 % Normal . [facility] Comment on above: Performed By: #### C BC #### [address] NRBC% 0.2 /100{WBC} Normal 0-0.5 [facility] Comment on above: Performed By: #### C BC #### [place] [id number] [place] Platelet mean volume (Bld) [Entitic vol] 10.9 fL High 6.6-10.1 [facility] Comment on above: Performed By: #### C BC #### [facility] [address] Platelets (Bld) [#/Vol] 230 10*3/uL Normal 150-450 [facility] Comment on above: Performed By: #### C BC #### [address] RBC (Bld) [#/Vol] 4.78 10*6/uL Normal 3.90-5.60 [facility] Comment on above: Performed By: #### C BC #### [address] WBC (Bld) [#/Vol] 8.8 10*3/uL Normal 4.1-10.5 [facility] Comment on above: Performed By: #### C BC #### [address] Eosinophils Auto (Bld) [#/Vo l]Ordered By: Donald Islas on 06-01-2024 Eosinophils (Bld) [#/Vol] Automated eosinophil count 0.0-0.45 [facility] Eosinophils/100 WBC Auto (Bl d)Ordered By: Donald Islas on 06-01-2024 Eosinophils/100 WBC (Bld) Automated eosinophil % . [facility] Erythrocyte distribution wid th Auto (RBC) [Ratio]Ordered By: Donald Islas on 06-01-2024 Erythrocyte distribution width (RBC) [Ratio] Erythrocyte distribution width [Ratio] by Automated count 12.0-14.8 [facility] Hematocrit Auto (Bld) [Volum e fraction]Ordered By: Donald Islas on 06-01-2024 Hematocrit (Bld) [Volume fraction] Hematocrit [Volume Fraction] of Blood by Automated count 38.8-50.0 [facility] Hemoglobin [Mass/volume] in BloodOrdered By: Donald Islas on 06-01-2024 Hemoglobin (Bld) [Mass/Vol] Hemoglobin [Mass/volume] in Blood 13.0-17.0 [facility] Leukocytes [#/volume] correc darlyn for nucleated erythrocytes in Blood by Automated counOrdered By: Donald Islas on 06-01-2024 WBC corrected for nucl RBC Auto (Bld) [#/Vol] Leukocytes [#/volume] corrected for nucleated erythrocytes in Blood by Automated coun 4.1-10.5 [facility] Lymphocytes Auto (Bld) [#/Vo l]Ordered By: Donald Islas on 06-01-2024 Lymphocytes (Bld) [#/Vol] Lymphocytes [#/volume] in Blood by Automated count 1.00-4.8 [facility] Lymphocytes/100 WBC Auto (Bl d)Ordered By: Donald Islas on 06-01-2024 Lymphocytes/100 WBC (Bld) Lymphocytes/100 leukocytes in Blood by Automated count . [facility] MCH Auto (RBC) [Entitic mass ]Ordered By: Donald Islas on 06-01-2024 MCH (RBC) [Entitic mass] MCH [Entitic mass] by Automated count 27.5-35.2 [facility] MCHC Auto (RBC) [Mass/Vol]Or dered By: Donald Islas on 06-01-2024 MCHC (RBC) [Mass/Vol] MCHC [Mass/volume] by Automated count 32.5-35.6 [facility] MCV Auto (RBC) [Entitic vol] Ordered By: Donald Islas on 06-01-2024 MCV (RBC) [Entitic vol] MCV [Entitic volume] by Automated count 83.5-101 [facility] Monocytes Auto (Bld) [#/Vol] Ordered By: Donald Islas on 06-01-2024 Monocytes (Bld) [#/Vol] Automated blood monocyte count 0.0-0.8 [facility] Monocytes/100 WBC Auto (Bld) Ordered By: Donald Islas on 06-01-2024 Monocytes/100 WBC (Bld) Automated monocyte % . [facility] Neutrophils Auto (Bld) [#/Vo l]Ordered By: Donald Islas on 06-01-2024 Neutrophils (Bld) [#/Vol] Neutrophils [#/volume] in Blood by Automated count 1.8-7.7 [facility] Neutrophils/100 WBC Auto (Bl d)Ordered By: Donald Islas on 06-01-2024 Neutrophils/100 WBC (Bld) Automated neutrophil % . [facility] Nucleated erythrocytes [Pres ence] in Blood by Automated countOrdered By: Donald Islas on 06-01-2024 Nucleated RBC Auto Ql (Bld) Nucleated erythrocytes [Presence] in Blood by Automated count 0-0.5 [facility] PSA Screen (Yearly Only)on 0 06-01-2024 PSA Screen (Yearly Only) <0.008 Normal 0.000-4.000 [facility] Comment on above: Order Comment: Is pa tient <50 yrs? Medicare does not pay <50.: N What is the date of the last PSA Screen?: N/A Is Medicare the insurance?: N Did you verify eligibility (Dx Time) check TestViewGp: YES TO ALL Result Comment: Kirsty putnam tumor marker results determined by assays using different manufacturers or methods may not be comparable. [facility] transmission engineer and method: [employer] DXI, CHEMILUMINESCENT IMMUNOASSAY. PERFORMED BY: [place] [address] PATHOLOGIST DIE STORAGE WORKER HYUN FRANK M.D. Performed By: #### P SAS #### [address] Platelet mean volume Auto (B ld) [Entitic vol]Ordered By: Donald Islas on 06-01-2024 Platelet mean volume (Bld) [Entitic vol] Platelet mean volume [Entitic volume] in Blood by Automated count High 6.6-10.1 [facility] Platelets Auto (Bld) [#/Vol] Ordered By: Donald Islas on 06-01-2024 Platelets (Bld) [#/Vol] Platelets [#/volume] in Blood by Automated count 150-450 [facility] Prostate specific Ag [Mass/v olume] in Serum or PlasmaOrdered By: Sal Sabillon on 06-01-2024 Prostate specific Ag [Mass/Vol] Prostate specific Ag [Mass/volume] in Serum or Plasma 0.000-4.000 [facility] Comment on above: Serial tumor marker results determined by assays using different manufacturers or methods may not be comparable.[facility] transmission engineer and method:[employer] DXI, CHEMILUMINESCENT IMMUNOASSAY. RBC Auto (Bld) [#/Vol]Ordere d By: Donald Islas on 06-01-2024 RBC (Bld) [#/Vol] Erythrocytes [#/volu me] in Blood by Automated count 3.90-5.60 [facility] WBC Auto (Bld) [#/Vol]Ordere d By: Donald Islas on 06-01-2024 WBC (Bld) [#/Vol] Leukocytes [#/volume ] in Blood by Automated count 4.1-10.5 [facility] Glucose (Bld) [Mass/Vol]on 0 05-24-2024 Glucose Blood, POC 330 mg/dL [facility] - Hematology and Cell countson 05-24-2024 HbA1c (Bld) [Mass fraction] 7.5 % [facility] No Panel Informationon 05-24 [facility] Pathology study report docum entOrdered By: Brett Hernandez on 05-24-2024 Pathology study [facility] Other Phone: Glucose Glucometer (dC) [M ass/Vol]Ordered By: Jeannie Farnsworth on 05-21-2024 Glucose [Mass/Vol] Capillary blood gluc ose measurement by glucometer (mass/volume) [facility] Comment on above: Random Glucose Refer ence Range is dependent on time and content of last meal. Glucose of more than 200 mg/dL in a nonstressed, ambulatory subject supports the diagnosis of Diabetes Mellitus. Glucose Poct Glucometerson 0 05-21-2024 Commemt1 Glu2: Cleaned Meter Normal [facility] Comment on above: Result Comment: PERF ORMED BY: [facility] [address] [place] [address] PATHOLOGIST DIE STORAGE WORKER HYUN FRANK M.D. Performed By: #### G JEAN #### Point of Care testing , Glucose [Mass/Vol] 132 mg/dL Normal [facility] Comment on above: Result Comment: [place] Glucose Reference Range is dependent on time and content of last meal. Glucose of more than 200 mg/dL in a nonstressed, ambulatory subject supports the diagnosis of Diabetes Mellitus. Performed By: #### G JEAN #### Point of Care testing , Mani 05-21-2024 L -------- -------- Specimen: [id number] Received: 05/21/24 Status: GEORGE Ortizguillermo Num: [id number] Spec Type: Surgical Subm Dr: Jeannie Farnsworth DO Tissues: A Colon Biopsy (TRANSVERSE POLYP) B Colon Biopsy (ASCENDING POLYP) C Colon Biopsy (CECAL POLYP) D Colon Biopsy (DESCENDING POLYP) Procedures: ZOLTAN/Sharad Messer/Micro L4/4 -------- Age/ Patient Sex Location Account Attending Physician -------- Don Elkins 73/M [id number] Jeannie Farnsworth DO -------- SPEC NUM: RECD: 05/21/24 STATUS: GEORGE DUPONT NUM: [id number] JIMENA: 05/21/[address] [facility] [address]: Jeannie Farnsworth DO ENTERED: 05/21/[address] [facility] [address]: SPEC TYPE: Surgical DEPT: S ENTERED BY: [id number] RECV BY: [id number] ORDERED: HE/8, Gross/Micro L4/4 ORDERED: HE/8, Gross/Micro L4/4 Pathological Diagnosis A. Colon, transverse, polypectomy: - Fragments of tubular adenoma. B. Colon, ascending, polypectomy: - Tubular adenoma. C. Colon, cecum, polypectomy: - Tubular adenoma. D. Colon, descending, polypectomy: - Hyperplastic polyp and tubular adenoma. Clinical Information Screen, colon polyps. Gross Description Part A is received in formalin labeled with the patients name, date of , and transverse polyps are five aguilar-baeza, focally erythematous, friable, 0.2 to 0.5 cm in greatest dimension polypoid fragments. The specimen is entirely submitted in a single cassette. (1, ns, A) VEE -------- Specimen: Received: 05/21/24 Status: ELISSAElsie Dupont Num: [id number] Spec Type: Surgical Subm Dr: Jeannie Farnsworth DO Tissues: A Colon Biopsy (TRANSVERSE POLYP) B Colon Biopsy (ASCENDING POLYP) C Colon Biopsy (CECAL POLYP) D Colon Biopsy (DESCENDING POLYP) Procedures: HE/8, Gross/Micro L4/4 -------- Patient: Don Elkins [id number] (Continued) -------- Specimen: Received: 05/21/24 (Continued) Gross Description (Continued) Signed (signature on file) Brett Hernandez MD 05/24/24 1004 -------- Specimen: Received: 05/21/240 Status: GEORGE Dupont Num: [id number] Spec Type: Surgical Subm Dr: Jeannie Farnsworth DO Tissues: A Colon Biopsy (TRANSVERSE POLYP) B Colon Biopsy (ASCENDING POLYP) C Colon Biopsy (CECAL POLYP) D Colon Biopsy (DESCENDING POLYP) Procedures: ZOLTAN/Sharad Messer/Gertrudis L4/4 -------- Patient: Don Elkins [id number] (Continued) -------- Specimen: Received: 05/21/24-1259 (Continued) Gross Description (Continued) Part B is received in formalin labeled with the patients name, date of , and ascending polyp is a aguilar-baeza, focally erythematous, friable, 0.5 cm polypoid fragment. The specimen is entirely submitted in a single cassette. (1, ns, B) Part C is received in formalin labeled with the patients name, date of , and cecal polyp is a aguilar-baeza, focally erythematous, friable, 0.4 cm polypoid fragment. The specimen is entirely submitted in a single cassette. (1, ns, C) Part D is received in formalin labeled with the patients name, date of , and descending polyp are four aguilar-baeza, focally erythematous, friable, 0.2 to 0.4 cm polypoid fragments. The specimen is entirely submitted in a single cassette. (1, ns, D) Microscopic Description A-D: Microscopic examination is performed. CPT Codes 66342 x4 -------- -------- Specimen: [id number] Received: 05/21/24 Status: GEORGE Dupont Num: [id number] Spec Type: Surgical Subm Dr: Jeannie Farnsworth, DO Tissues: A Colon Biopsy (TRANSVERSE POLYP) B Colon Biopsy (ASCENDING POLYP) C Colon Biopsy (CECAL POLYP) D Colon Biopsy (DESCENDING POLYP) Procedures: HE/8, Gross/Micro L4/4 -------- Patient: Don Elkins [id number] (Continued) -------- Sig (more content not included)... Normal [facility] No Panel InformationOrdered By: Jeannie Farnsworth on 05-21-2024 Bedside Glucose Comment Glu2: cleaned meter [facility] Basophils Auto (Bld) [#/Vol] on 05-15-2024 Basophils (Bld) [#/Vol] Automated basophil count 0.0-0.1 [facility] Basophils/100 WBC Auto (Bld) on 05-15-2024 Basophils/100 WBC (Bld) Automated basophil % 0.2-2.0 [facility] Eosinophils/100 WBC Auto (Bl d)on 05-15-2024 Eosinophils/100 WBC (Bld) Automated eosinophil % Low 0.9-7.0 [facility] Erythrocyte distribution wid th Auto (RBC) [Ratio]on 05-15-2024 Erythrocyte distribution width (RBC) [Ratio] Erythrocyte distribution width [Ratio] by Automated count 11.0-15.0 [facility] Estimated glomerular filtrat ion rate (GFR) non- Americanon 05-15-2024 GFR/1.73 sq M.predicted among non-blacks MDRD (S/P/Bld) [Vol rate/Area] Estimated glomerular filtration rate (GFR) non- Low >=60 mL/min/1.73m 2 [facility] Globulin Calc (S) [Mass/Vol] on 05-15-2024 Globulin (S) [Mass/Vol] Serum globulin measurement by calculation (mass/volume) [facility] Hematocrit Auto (Bld) [Volum e fraction]on 05-15-2024 Hematocrit (Bld) [Volume fraction] Hematocrit [Volume Fraction] of Blood by Automated count Low 42.0-54.0 [facility] Hemoglobin [Mass/volume] in Bloodon 05-15-2024 Hemoglobin (Bld) [Mass/Vol] Hemoglobin [Mass/volume] in Blood Low 14.0-18.0 [facility] Laboratory - Chemistry and C hemistry - challengeon 05-15-2024 Albumin [Mass/Vol] 2.4 g/dL Low 3.4-5.0 [facility] ALP [Catalytic activity/Vol] 47 U/L 46-116 [facility] ALT [Catalytic activity/Vol] 34 U/L 16-63 [facility] AST [Catalytic activity/Vol] 23 U/L 15-37 [facility] Bilirubin [Mass/Vol] 0.9 mg/dL 0.2-1.0 [facility] Calcium [Mass/Vol] 8.2 mg/dL Low 8.5-10.1 [facility] Chloride [Moles/Vol] 105 mmol/L 98-107 [facility] CO2 [Moles/Vol] 26.4 mmol/L 21.0-32.[address] [facility] Creatinine [Mass/Vol] 1.69 mg/dL High 0.70-1.30 [facility] GFR/1.73 sq M.predicted MDRD (S/P/Bld) [Vol rate/Area] 49 mL/min/{1.73_m2} Low >=60 mL/min/1.73m 2 [facility] Glucose [Mass/Vol] 149 mg/dL High 74-106 [facility] Potassium [Moles/Vol] 4.5 mmol/L 3.5-5.1 [facility] Protein [Mass/Vol] 5.2 g/dL Low 6.4-8.2 [facility] Sodium [Moles/Vol] 137 mmol/L 136-145 [facility] Urea nitrogen [Mass/Vol] 9.0 mg/dL 7.0-18.0 [facility] Urea nitrogen/Creatinine [Mass ratio] 5.3 mg/mg [facility] Laboratory - Hematology and Cell countson 05-15-2024 Immature granulocytes/100 WBC (Bld) 0.4 % 0.0-0.5 [facility] Leukocytes [#/volume] correc darlyn for nucleated erythrocytes in Blood by Automated counon 05-15-2024 WBC corrected for nucl RBC Auto (Bld) [#/Vol] Leukocytes [#/volume] corrected for nucleated erythrocytes in Blood by Automated coun High 4.0-11.0 [facility] Lymphocytes Auto (Bld) [#/Vo l]on 05-15-2024 Lymphocytes (Bld) [#/Vol] Lymphocytes [#/volume] in Blood by Automated count 1.2-3.8 [facility] Lymphocytes/100 WBC Auto (Bl d)on 05-15-2024 Lymphocytes/100 WBC (Bld) Lymphocytes/100 leukocytes in Blood by Automated count Low 20.5-60.0 [facility] MCH Auto (RBC) [Entitic mass ]on 05-15-2024 MCH (RBC) [Entitic mass] MCH [Entitic mass] by Automated count 25.9-34.0 [facility] MCHC Auto (RBC) [Mass/Vol]on 05-15-2024 MCHC (RBC) [Mass/Vol] MCHC [Mass/volume] by Automated count 29.9-35.2 [facility] MCV Auto (RBC) [Entitic vol] on 05-15-2024 MCV (RBC) [Entitic vol] MCV [Entitic volume] by Automated count 80.0-94.0 [facility] Monocytes Auto (Bld) [#/Vol] on 05-15-2024 Monocytes (Bld) [#/Vol] Automated blood monocyte count High 0.3-0.8 [facility] Monocytes/100 WBC Auto (Bld) on 05-15-2024 Monocytes/100 WBC (Bld) Automated monocyte % 1.7-12.0 [facility] Neutrophils Auto (Bld) [#/Vo l]on 05-15-2024 Neutrophils (Bld) [#/Vol] Neutrophils [#/volume] in Blood by Automated count High 1.4-6.5 [facility] Neutrophils/100 WBC Auto (Bl d)on 05-15-2024 Neutrophils/100 WBC (Bld) Automated neutrophil % High 43.0-75.0 [facility] No Panel Informationon 05-15 Eosinophils # (Auto) 0.1 10 3/uL 0.0-0.7 [facility] Immature Granulocyte # (Auto) 0.05 10 3/uL High 0.00-0.03 [facility] Platelet mean volume Auto (B ld) [Entitic vol]on 05-15-2024 Platelet mean volume (Bld) [Entitic vol] Platelet mean volume [Entitic volume] in Blood by Automated count 9.5-13.5 [facility] Platelets Auto (Bld) [#/Vol] on 05-15-2024 Platelets (Bld) [#/Vol] Platelets [#/volume] in Blood by Automated count 150-450 [facility] RBC Auto (Bld) [#/Vol]on RBC (Bld) [#/Vol] Erythrocytes [#/volu me] in Blood by Automated count Low 4.70-6.10 [facility] Serum or plasma albumin/glob ulin mass ratioon 05-15-2024 Albumin/Globulin [Mass ratio] Serum or plasma albumin/globulin mass ratio [facility] Serum or plasma anion gap de terminationon 05-15-2024 Anion gap [Moles/Vol] Serum or plasma anion gap determination [facility] Basophils Auto (Bld) [#/Vol] on 05-14-2024 Basophils (Bld) [#/Vol] Automated basophil count 0.0-0.1 [facility] Basophils/100 WBC Auto (Bld) on 05-14-2024 Basophils/100 WBC (Bld) Automated basophil % 0.2-2.0 [facility] Eosinophils/100 WBC Auto (Bl d)on 05-14-2024 Eosinophils/100 WBC (Bld) Automated eosinophil % 0.9-7.0 [facility] Erythrocyte distribution wid th Auto (RBC) [Ratio]on 05-14-2024 Erythrocyte distribution width (RBC) [Ratio] Erythrocyte distribution width [Ratio] by Automated count 11.0-15.0 [facility] Estimated glomerular filtrat ion rate (GFR) non- Americanon 05-14-2024 GFR/1.73 sq M.predicted among non-blacks MDRD (S/P/Bld) [Vol rate/Area] Estimated glomerular filtration rate (GFR) non- Low >=60 mL/min/1.73m 2 [facility] Globulin Calc (S) [Mass/Vol] on 05-14-2024 Globulin (S) [Mass/Vol] Serum globulin measurement by calculation (mass/volume) [facility] Hematocrit Auto (Bld) [Volum e fraction]on 05-14-2024 Hematocrit (Bld) [Volume fraction] Hematocrit [Volume Fraction] of Blood by Automated count Low 42.0-54.0 [facility] Hemoglobin [Mass/volume] in Bloodon 05-14-2024 Hemoglobin (Bld) [Mass/Vol] Hemoglobin [Mass/volume] in Blood Low 14.0-18.0 [facility] Laboratory - Chemistry and C hemistry - challengeon 05-14-2024 Albumin [Mass/Vol] 2.6 g/dL Low 3.4-5.0 [facility] ALP [Catalytic activity/Vol] 51 U/L 46-116 [facility] ALT [Catalytic activity/Vol] 35 U/L 16-63 [facility] AST [Catalytic activity/Vol] 20 U/L 15-37 [facility] Bilirubin [Mass/Vol] 1.6 mg/dL High 0.2-1.0 [facility] Calcium [Mass/Vol] 8.2 mg/dL Low 8.5-10.1 [facility] Chloride [Moles/Vol] 104 mmol/L 98-107 [facility] CO2 [Moles/Vol] 26.3 mmol/L 21.0-32.[address] [facility] Creatinine [Mass/Vol] 1.79 mg/dL High 0.70-1.30 [facility] GFR/1.73 sq M.predicted MDRD (S/P/Bld) [Vol rate/Area] 45 mL/min/{1.73_m2} Low >=60 mL/min/1.73m 2 [facility] Glucose [Mass/Vol] 112 mg/dL High 74-106 [facility] Lipase [Catalytic activity/Vol] 76.0 U/L 16.0-77.0 [facility] Potassium [Moles/Vol] 4.1 mmol/L 3.5-5.1 [facility] Protein [Mass/Vol] 5.3 g/dL Low 6.4-8.2 [facility] Sodium [Moles/Vol] 139 mmol/L 136-145 [facility] Urea nitrogen [Mass/Vol] 8.0 mg/dL 7.0-18.0 [facility] Urea nitrogen/Creatinine [Mass ratio] 4.5 mg/mg [facility] Laboratory - Hematology and Cell countson 05-14-2024 Immature granulocytes/100 WBC (Bld) 1.0 % High 0.0-0.5 [facility] Leukocytes [#/volume] correc darlyn for nucleated erythrocytes in Blood by Automated counon 05-14-2024 WBC corrected for nucl RBC Auto (Bld) [#/Vol] Leukocytes [#/volume] corrected for nucleated erythrocytes in Blood by Automated coun 4.0-11.0 [facility] Lymphocytes Auto (Bld) [#/Vo l]on 05-14-2024 Lymphocytes (Bld) [#/Vol] Lymphocytes [#/volume] in Blood by Automated count 1.2-3.8 [facility] Lymphocytes/100 WBC Auto (Bl d)on 05-14-2024 Lymphocytes/100 WBC (Bld) Lymphocytes/100 leukocytes in Blood by Automated count 20.5-60.0 [facility] MCH Auto (RBC) [Entitic mass ]on 05-14-2024 MCH (RBC) [Entitic mass] MCH [Entitic mass] by Automated count 25.9-34.0 [facility] MCHC Auto (RBC) [Mass/Vol]on 05-14-2024 MCHC (RBC) [Mass/Vol] MCHC [Mass/volume] by Automated count 29.9-35.2 [facility] MCV Auto (RBC) [Entitic vol] on 05-14-2024 MCV (RBC) [Entitic vol] MCV [Entitic volume] by Automated count 80.0-94.0 [facility] Monocytes Auto (Bld) [#/Vol] on 05-14-2024 Monocytes (Bld) [#/Vol] Automated blood monocyte count High 0.3-0.8 [facility] Monocytes/100 WBC Auto (Bld) on 05-14-2024 Monocytes/100 WBC (Bld) Automated monocyte % High 1.7-12.0 [facility] Neutrophils Auto (Bld) [#/Vo l]on 05-14-2024 Neutrophils (Bld) [#/Vol] Neutrophils [#/volume] in Blood by Automated count 1.4-6.5 [facility] Neutrophils/100 WBC Auto (Bl d)on 05-14-2024 Neutrophils/100 WBC (Bld) Automated neutrophil % 43.0-75.0 [facility] No Panel Informationon 05-14 Clostridium difficile (PCR)(LAB) Negative Negative [facility] Comment on above: Performed at: [address] [id number] Director: Prakash Barbour PhD, Phone: [phone] Eosinophils # (Auto) 0.3 10 3/uL 0.0-0.7 [facility] Immature Granulocyte # (Auto) 0.07 10 3/uL High 0.00-0.03 [facility] Platelet mean volume Auto (B ld) [Entitic vol]on 05-14-2024 Platelet mean volume (Bld) [Entitic vol] Platelet mean volume [Entitic volume] in Blood by Automated count 9.5-13.5 [facility] Platelets Auto (Bld) [#/Vol] on 05-14-2024 Platelets (Bld) [#/Vol] Platelets [#/volume] in Blood by Automated count 150-450 [facility] RBC Auto (Bld) [#/Vol]on RBC (Bld) [#/Vol] Erythrocytes [#/volu me] in Blood by Automated count Low 4.70-6.10 [facility] Serum or plasma albumin/glob ulin mass ratioon 05-14-2024 Albumin/Globulin [Mass ratio] Serum or plasma albumin/globulin mass ratio [facility] Serum or plasma anion gap de terminationon 05-14-2024 Anion gap [Moles/Vol] Serum or plasma anion gap determination [facility] Basophils Auto (Bld) [#/Vol] on 05-13-2024 Basophils (Bld) [#/Vol] Automated basophil count 0.0-0.1 [facility] Basophils/100 WBC Auto (Bld) on 05-13-2024 Basophils/100 WBC (Bld) Automated basophil % 0.2-2.0 [facility] Eosinophils/100 WBC Auto (Bl d)on 05-13-2024 Eosinophils/100 WBC (Bld) Automated eosinophil % 0.9-7.0 [facility] Erythrocyte distribution wid th Auto (RBC) [Ratio]on 05-13-2024 Erythrocyte distribution width (RBC) [Ratio] Erythrocyte distribution width [Ratio] by Automated count 11.0-15.0 [facility] Estimated glomerular filtrat ion rate (GFR) non- Americanon 05-13-2024 GFR/1.73 sq M.predicted among non-blacks MDRD (S/P/Bld) [Vol rate/Area] Estimated glomerular filtration rate (GFR) non- Low >=60 mL/min/1.73m 2 [facility] Globulin Calc (S) [Mass/Vol] on 05-13-2024 Globulin (S) [Mass/Vol] Serum globulin measurement by calculation (mass/volume) [facility] Hematocrit Auto (Bld) [Volum e fraction]on 05-13-2024 Hematocrit (Bld) [Volume fraction] Hematocrit [Volume Fraction] of Blood by Automated count 42.0-54.0 [facility] Hemoglobin [Mass/volume] in Bloodon 05-13-2024 Hemoglobin (Bld) [Mass/Vol] Hemoglobin [Mass/volume] in Blood 14.0-18.0 [facility] INR in Platelet poor plasma by Coagulation assayon 05-13-2024 INR Coag (PPP) [Relative time] INR in Platelet poor plasma by Coagulation assay [facility] Comment on above: DESIRED INR:2.0-3.0 CONDITIONS NOT LISTED BELOW2.5-3.5 FOR PROSTHETIC HEART VALVE REPLACEMENT2.5-3.5 RECURRENT THROMBOSIS Laboratory - Chemistry and C hemistry - challengeon 05-13-2024 Bilirubin Ql (U) SMALL Abnormal NEGATIVE [facility] Glucose (U) [Mass/Vol] Negative NEGATIVE [facility] Ketones Ql (U) 15 mg/dL Abnormal NEGATIVE [facility] pH (U) 5.5 [pH] 5.0-9.0 [facility] Specific gravity (U) [Rel density] >=1.030 Abnormal 1.005-1.025 [facility] Urobilinogen Qn (U) 0.2 {Yared'U}/dL 0.2-1.0 [facility] Lactate [Moles/Vol] 2.4 mmol/L Critically high 0.4-2.0 [facility] Comment on above: RESULTS CALLED TO nicholas gaona rn @BY Najma Moncada [id number] Albumin [Mass/Vol] 3.4 g/dL 3.4-5.0 [facility] ALP [Catalytic activity/Vol] 75 U/L 46-116 [facility] ALT [Catalytic activity/Vol] 50 U/L 16-63 [facility] AST [Catalytic activity/Vol] 23 U/L 15-37 [facility] Bilirubin [Mass/Vol] 1.8 mg/dL High 0.2-1.0 [facility] Calcium [Mass/Vol] 9.1 mg/dL 8.5-10.1 [facility] Chloride [Moles/Vol] 98 mmol/L 98-107 [facility] CO2 [Moles/Vol] 23.1 mmol/L 21.0-32.[address] [facility] Creatinine [Mass/Vol] 2.01 mg/dL High 0.70-1.30 [facility] GFR/1.73 sq M.predicted MDRD (S/P/Bld) [Vol rate/Area] 40 mL/min/{1.73_m2} Low >=60 mL/min/1.73m 2 [facility] Glucose [Mass/Vol] 169 mg/dL High 74-106 [facility] Lipase [Catalytic activity/Vol] 87.0 U/L High 16.0-77.0 [facility] Magnesium [Mass/Vol] 1.6 mg/dL Low 1.8-2.4 [facility] Potassium [Moles/Vol] 3.5 mmol/L 3.5-5.1 [facility] Protein [Mass/Vol] 6.7 g/dL 6.4-8.2 [facility] Sodium [Moles/Vol] 136 mmol/L 136-145 [facility] Urea nitrogen [Mass/Vol] 14.0 mg/dL 7.0-18.0 [facility] Urea nitrogen/Creatinine [Mass ratio] 7.0 mg/mg [facility] Laboratory - Hematology and Cell countson 05-13-2024 Immature granulocytes/100 WBC (Bld) 0.8 % High 0.0-0.5 [facility] Laboratory - Microbiology an d Antimicrobial susceptibilityon 05-13-2024 SARS-CoV-2 (COVID-19) RNA MOLLY+probe Ql (Unsp spec) Negative NEGATIVE [facility] Comment on above: This test has not be en FDA cleared or approved, but has beenauthorized by the FDA under an Emergency Use Authorization(EUA) for use by authorized laboratories certified underIA that meet the requirements to perform moderate or highcomplexity testing. This test has been authorized only forthe detection of proteins from SARS-CoV-2, not for any otherviruses or pathogens. The emergency use of this test isauthorized for the duration of the declaration thatcircumstances exist justifying the authorization ofemergency use of in vitro diagnostic tests for detectionand/or diagnosis of Covid-19 under section 564(b)(1) of theAct, 21 U.S.C. 360bbb-3(b)(1), unless the declaration isterminated or authorization is revoked sooner. Laboratory - Specimen inform ationon 05-13-2024 Appearance (U) CLEAR CLEAR [facility] Color (U) DK YELLOW YELLOW [facility] Laboratory - Urinalysison Leukocyte esterase Test strip Ql (U) Negative NEGATIVE [facility] Nitrite Ql (U) Negative NEGATIVE [facility] Protein Ql (U) TRACE mg/dL NEG/TRACE [facility] Leukocytes [#/volume] correc darlyn for nucleated erythrocytes in Blood by Automated counon 05-13-2024 WBC corrected for nucl RBC Auto (Bld) [#/Vol] Leukocytes [#/volume] corrected for nucleated erythrocytes in Blood by Automated coun High 4.0-11.0 [facility] Lymphocytes Auto (Bld) [#/Vo l]on 05-13-2024 Lymphocytes (Bld) [#/Vol] Lymphocytes [#/volume] in Blood by Automated count 1.2-3.8 [facility] Lymphocytes/100 WBC Auto (Bl d)on 05-13-2024 Lymphocytes/100 WBC (Bld) Lymphocytes/100 leukocytes in Blood by Automated count 20.5-60.0 [facility] MCH Auto (RBC) [Entitic mass ]on 05-13-2024 MCH (RBC) [Entitic mass] MCH [Entitic mass] by Automated count 25.9-34.0 [facility] MCHC Auto (RBC) [Mass/Vol]on 05-13-2024 MCHC (RBC) [Mass/Vol] MCHC [Mass/volume] by Automated count 29.9-35.2 [facility] MCV Auto (RBC) [Entitic vol] on 05-13-2024 MCV (RBC) [Entitic vol] MCV [Entitic volume] by Automated count 80.0-94.0 [facility] Monocytes Auto (Bld) [#/Vol] on 05-13-2024 Monocytes (Bld) [#/Vol] Automated blood monocyte count High 0.3-0.8 [facility] Monocytes/100 WBC Auto (Bld) on 05-13-2024 Monocytes/100 WBC (Bld) Automated monocyte % High 1.7-12.0 [facility] Neutrophils Auto (Bld) [#/Vo l]on 05-13-2024 Neutrophils (Bld) [#/Vol] Neutrophils [#/volume] in Blood by Automated count High 1.4-6.5 [facility] Neutrophils/100 WBC Auto (Bl d)on 05-13-2024 Neutrophils/100 WBC (Bld) Automated neutrophil % 43.0-75.0 [facility] No Panel Informationon 05-13 Urine Microscopic Review NO [facility] Urine Occult Blood Negative NEGATIVE [facility] Bedside Influenza Type A Antigen Negative [facility] Comment on above: Negative for Flu A p rotein antigen. Infection due to Flu Acannot be ruled out. Flu A antigen in the sample may bebelow the detection limit of the test. Bedside Influenza Type B Antigen Negative [facility] Comment on above: Negative for Flu B p rotein antigen. Infection due to Flu Bcannot be ruled out. Flu B antigen in the sample may bebelow the detection limit of the test. RSV RNA Qual (PCR)([facility]) Not detected NOT DETECTE [facility] Eosinophils # (Auto) 0.3 10 3/uL 0.0-0.7 [facility] Immature Granulocyte # (Auto) 0.10 10 3/uL High 0.00-0.03 [facility] Troponin I High Sensitivity 44.9 pg/mL 4.0-76.1 [facility] Comment on above: CUT-OFF POINTS HAVE BEEN ESTABLISHED BASED ON THE FOURTHUNIVERSAL DEFINITION OF MYOCARDIAL INFARCTION. THE UPPERREFERENCE LIMIT (URL) OF TROPONIN, DEFINED THE 99THPERCENTILE OF cTnI DISTRIBUTION IN A REFERENCE POPULATION,HAS BEEN CONFIRMED THE DECISION THRESHOLD FOR MIDIAGNOSIS.99TH PERCENTILE = 76.2 PG/MLNOTE: HIGH-SENSITIVITY TROPONIN ASSAY IS NOT INTENDED TO BEUSED IN ISOLATION BUT SHOULD BE INTERPRETED IN CONJUNCTIONWITH OTHER DIAGNOSTIC AND CLINICAL INFORMATION. Platelet mean volume Auto (B ld) [Entitic vol]on 05-13-2024 Platelet mean volume (Bld) [Entitic vol] Platelet mean volume [Entitic volume] in Blood by Automated count 9.5-13.5 [facility] Platelets Auto (Bld) [#/Vol] on 05-13-2024 Platelets (Bld) [#/Vol] Platelets [#/volume] in Blood by Automated count 150-450 [facility] Prothrombin time (PT)on 04-19 PT Coag (PPP) [Time] Prothrombin time (PT) High 9.0-11.6 [facility] RBC Auto (Bld) [#/Vol]on RBC (Bld) [#/Vol] Erythrocytes [#/volu me] in Blood by Automated count 4.70-6.10 [facility] Serum or plasma albumin/glob ulin mass ratioon 05-13-2024 Albumin/Globulin [Mass ratio] Serum or plasma albumin/globulin mass ratio [facility] Serum or plasma anion gap de terminationon 05-13-2024 Anion gap [Moles/Vol] Serum or plasma anion gap determination [facility] Auditory function testson Right Ear: Mild to m oderate sensorineural hearing loss above 2K Hz Left Ear: Moderate rising to mild sensorineural hearing loss from 3K Hz - 8K Hz Impressions: Right Ear: 20 dB decrease at 8K Hz only Left Ear: 19 dB decrease at 6K Hz only [facility] No Panel Informationon 03-17 Prostate Specific Antigen Screen <0.13 ng/mL <=4.00 [facility] Erythrocyte distribution wid th Auto (RBC) [Ratio]on 01-22-2024 Erythrocyte distribution width (RBC) [Ratio] 12.0 % 11.0-15.0 [facility] Estimated glomerular filtrat ion rate (GFR) non- Americanon 01-22-2024 GFR/1.73 sq M.predicted among non-blacks MDRD (S/P/Bld) [Vol rate/Area] 29 mL/min/{1.73_m2} Low >=60 [facility] Hematocrit Auto (Bld) [Volum e fraction]on 01-22-2024 Hematocrit (Bld) [Volume fraction] 44.0 % 42.0-54.0 [facility] Hemoglobin [Mass/volume] in Bloodon 01-22-2024 Hemoglobin (Bld) [Mass/Vol] 15.0 g/dL 14.0-18.0 [facility] Laboratory - Chemistry and C hemistry - challengeon 01-22-2024 Albumin [Mass/Vol] 3.6 g/dL 3.4-5.0 [facility] Calcium [Mass/Vol] 8.9 mg/dL 8.5-10.1 [facility] Chloride [Moles/Vol] 99 mmol/L 98-107 [facility] CO2 [Moles/Vol] 28.7 mmol/L 21.0-32.[address] [facility] Creatinine [Mass/Vol] 2.24 mg/dL High 0.70-1.30 [facility] GFR/1.73 sq M.predicted MDRD (S/P/Bld) [Vol rate/Area] 35 mL/min/{1.73_m2} Low >=60 [facility] Glucose [Mass/Vol] 303 mg/dL High 74-106 [facility] Magnesium [Mass/Vol] 1.9 mg/dL 1.8-2.4 [facility] Potassium [Moles/Vol] 4.9 mmol/L 3.5-5.1 [facility] Sodium [Moles/Vol] 137 mmol/L 136-145 [facility] Urate [Mass/Vol] 7.7 mg/dL High 3.5-7.[address] [facility] Urea nitrogen [Mass/Vol] 33.0 mg/dL High 7.0-18.0 [facility] Urea nitrogen/Creatinine [Mass ratio] 14.7 mg/mg [facility] Bilirubin Ql (U) Negative NEGATIVE [facility] Glucose (U) [Mass/Vol] mg/dL Abnormal NEGATIVE [facility] Ketones Ql (U) Negative NEGATIVE [facility] pH (U) 5.5 [pH] 5.0-9.0 [facility] Specific gravity (U) [Rel density] 1.015 1.005-1.025 [facility] Urobilinogen Qn (U) 0.2 {Yared'U}/dL 0.2-1.0 [facility] Laboratory - Specimen inform ationon 01-22-2024 Appearance (U) CLEAR CLEAR [facility] Color (U) LT. YELLOW YELLOW [facility] Laboratory - Urinalysison Leukocyte esterase Test strip Ql (U) Negative NEGATIVE [facility] Mucus Ql (Urine sed) TRACE Abnormal NONE SEEN [facility] Nitrite Ql (U) Negative NEGATIVE [facility] Protein (U) [Mass/Vol] 11.7 mg/dL <=11.9 [facility] Protein Ql (U) Negative NEG/TRACE [facility] Leukocytes [#/volume] correc darlyn for nucleated erythrocytes in Blood by Automated counon 01-22-2024 WBC corrected for nucl RBC Auto (Bld) [#/Vol] 9.7 10 3/uL 4.0-11.0 [facility] MCH Auto (RBC) [Entitic mass ]on 01-22-2024 MCH (RBC) [Entitic mass] 31.5 pg 25.9-34.0 [facility] MCHC Auto (RBC) [Mass/Vol]on 01-22-2024 MCHC (RBC) [Mass/Vol] 34.1 g/dL 29.9-35.2 [facility] MCV Auto (RBC) [Entitic vol] on 01-22-2024 MCV (RBC) [Entitic vol] 92.4 fL 80.0-94.0 [facility] No Panel Informationon 01-21 25-Hydroxy Vitamin D Total 68.1 ng/mL [facility] Comment on above: <20 ng/mL Vit D defi cient20-<30 ng/mL Vit D [id number] ng/mL Vit D sufficient>100 ng/mL Potential Toxicity Parathyroid Hormone (Intact) 61 pg/mL 15-65 [facility] Comment on above: Performed at: - [address] [id number] Director: Prakash Barbour PhD, Phone: [phone] Phosphorus Level 3.8 mg/dL 2.6-4.[address] [facility] Urine Bacteria NONE SEEN #/HPF NONE SEEN [facility] Urine Occult Blood Negative NEGATIVE [facility] Urine Random Creatinine 81.08 mg/dL 20.00-300.00 [facility] Urine RBC NONE SEEN #/HPF 0-2 [facility] Urine Squamous Epithelial Cells FEW #/LPF Abnormal NONE/RARE [facility] Urine WBC NONE SEEN #/HPF NONE SEEN [facility] Platelet mean volume Auto (B ld) [Entitic vol]on 01-22-2024 Platelet mean volume (Bld) [Entitic vol] 12.7 fL 9.5-13.5 [facility] Platelets Auto (Bld) [#/Vol] on 01-22-2024 Platelets (Bld) [#/Vol] 230 10 3/uL 150-450 [facility] RBC Auto (Bld) [#/Vol]on RBC (Bld) [#/Vol] 4.76 10 6/uL 4.70-6.10 [facility] Serum or plasma anion gap de terminationon 01-22-2024 Anion gap [Moles/Vol] 14.2 mmol/L [facility] Urine protein/creatinine rat ioon 01-22-2024 Protein/Creatinine (U) [Ratio] 0.14 [facility] 37on 01-06-2024 37 *We will increase yo ur metoprolol to 100mg twice daily. You can take 2 tablets of your current 50mg tablets twice daily until this runs out then start the new prescription with 1 tablet daily. *No objections with your upcoming dental procedure. Normal [facility] Office Visiton 01-06-2024 Follow-up visit [id number] Don Elkins 1950 M Date Provider Department Center 01/06/2024 [facility] RODRIGUEZ [facility] Family History Problem Relation Age of Onset Diabetes Mother Coronary artery disease Brother Other Brother Heart failure Brother Family Status - Relation Status Age at Mother Brother Level of Service:05335 [place] OFFICE/OUTPATIENT ESTABLISHED MOD MDM 30 MIN Reason for Visit and Comments: Hypertension [799711] Coronary Artery Disease [187] Normal [facility] Automated epithelial cells c ount in urine sediment (number/area)on 08-05-2023 Epithelial cells Auto (Urine sed) [#/Area] FEW #/LPF NONE/RARE [facility] Automated leukocytes count i n urine sediment (number/area)on 08-05-2023 WBC Auto (Urine sed) [#/Area] NONE SEEN #/HPF 0-2 [facility] Automated urine specific gra vity by refractometryon 08-05-2023 Specific gravity Refractometry automated (U) [Rel density] 1.025 1.005-1.025 [facility] Bilirubin Auto test strip (U ) [Mass/Vol]on 08-05-2023 Bilirubin (U) [Mass/Vol] Negative NEGATIVE [facility] Cholesterol in LDL Calc [Mas s/Vol]on 08-05-2023 Cholesterol in LDL [Mass/Vol] 33.0 mg/dL [facility] Comment on above: <100 mg/dl [id number] 0-129 mg/dl NEAR OR ABOVE [id number] mg/dl BORDERLINE [id number] mg/dl HIGH>190 mg/dl VERY HIGH Cholesterol in VLDL Calc [Ma ss/Vol]on 08-05-2023 Cholesterol in VLDL [Mass/Vol] 30.8 mg/dL [facility] Color Auto (U)on 08-05-2023 Color (U) YELLOW YELLOW [facility] Erythrocyte distribution wid th Auto (RBC) [Ratio]on 08-05-2023 Erythrocyte distribution width (RBC) [Ratio] 12.1 % 11.0-15.0 [facility] Estimated glomerular filtrat ion rate (GFR) non- Americanon 08-05-2023 GFR/1.73 sq M.predicted among non-blacks MDRD (S/P/Bld) [Vol rate/Area] 44 mL/min/{1.73_m2} >=60 [facility] Hematocrit Auto (Bld) [Volum e fraction]on 08-05-2023 Hematocrit (Bld) [Volume fraction] 45.3 % 42.0-54.0 [facility] Hemoglobin [Mass/volume] in Bloodon 08-05-2023 Hemoglobin (Bld) [Mass/Vol] 15.1 g/dL 14.0-18.0 [facility] Ketones Auto test strip (U) [Mass/Vol]on 08-05-2023 Ketones (U) [Mass/Vol] Negative NEGATIVE [facility] Laboratory - Chemistry and C hemistry - challengeon 08-05-2023 Albumin [Mass/Vol] 3.3 g/dL 3.4-5.0 [facility] Calcium [Mass/Vol] 8.5 mg/dL 8.5-10.1 [facility] Chloride [Moles/Vol] 98 mmol/L 98-107 [facility] Cholesterol [Mass/Vol] 110 mg/dL <=200 [facility] Cholesterol in HDL [Mass/Vol] 47 mg/dL 40-60 [facility] Comment on above: > or =60 mg/dl - LOW CARDIOVASCULAR RISK<40 mg/dl - HIGH CARDIOVASCULAR RISK CO2 [Moles/Vol] 26.4 mmol/L 21.0-32.[address] [facility] Creatinine [Mass/Vol] 1.57 mg/dL 0.70-1.30 [facility] Free T4 [Mass/Vol] 0.95 ng/dL 0.76-1.46 [facility] GFR/1.73 sq M.predicted MDRD (S/P/Bld) [Vol rate/Area] 53 mL/min/{1.73_m2} >=60 [facility] Glucose [Mass/Vol] 300 mg/dL 74-106 [facility] Magnesium [Mass/Vol] 1.9 mg/dL 1.8-2.4 [facility] Potassium [Moles/Vol] 3.8 mmol/L 3.5-5.1 [facility] Sodium [Moles/Vol] 133 mmol/L 136-145 [facility] Triglyceride [Mass/Vol] 154 mg/dL <=150 [facility] TSH Qn 1.788 m[IU]/L 0.358-3.740 [facility] Urate [Mass/Vol] 5.4 mg/dL 3.5-7.[address] [facility] Urea nitrogen [Mass/Vol] 23.0 mg/dL 7.0-18.0 [facility] Urea nitrogen/Creatinine [Mass ratio] 14.6 mg/mg [facility] Laboratory - Urinalysison Protein (U) [Mass/Vol] 19.0 mg/dL <=11.9 [facility] Leukocytes [#/volume] correc darlyn for nucleated erythrocytes in Blood by Automated counon 08-05-2023 WBC corrected for nucl RBC Auto (Bld) [#/Vol] 11.2 10 3/uL 4.0-11.0 [facility] MCH Auto (RBC) [Entitic mass ]on 08-05-2023 MCH (RBC) [Entitic mass] 31.7 pg 25.9-34.0 [facility] MCHC Auto (RBC) [Mass/Vol]on 08-05-2023 MCHC (RBC) [Mass/Vol] 33.3 g/dL 29.9-35.2 [facility] MCV Auto (RBC) [Entitic vol] on 08-05-2023 MCV (RBC) [Entitic vol] 95.2 fL 80.0-94.0 [facility] Microalbumin [Mass/volume] i n Urineon 08-05-2023 Albumin DL <= 20 mg/L (U) [Mass/Vol] 3.7 mg/dL <=30.0 [facility] Mucus LM Ql (Urine sed)on Mucus Ql (Urine sed) TRACE NONE SEEN [facility] No Panel Informationon 08-04 25-Hydroxy Vitamin D Total 61.2 ng/mL [facility] Comment on above: <20 ng/mL Vit D defi cient20-<30 ng/mL Vit D [id number] ng/mL Vit D sufficient>100 ng/mL Potential Toxicity C-Peptide 19.7 ng/mL 1.1-4.4 [facility] Comment on above: C-Peptide reference interval is for fasting patients.Performed at: [facility] [address] [id number] Director: Prakash Barbour PhD, Phone: [phone] Free Triiodothyronine 1.71 pg/mL 2.18-3.98 [facility] Parathyroid Hormone (Intact) 34 pg/mL 15-65 [facility] [facility] Comment on above: Performed at: [facility] [address] [id number] Director: Prakash Barbour PhD, Phone: [phone] Phosphorus Level 3.9 mg/dL 2.6-4.[address] [facility] Urine Random Creatinine 178.56 mg/dL 20.00-300.00 [facility] Platelet mean volume Auto (B ld) [Entitic vol]on 08-05-2023 Platelet mean volume (Bld) [Entitic vol] 12.7 fL 9.5-13.5 [facility] Platelets Auto (Bld) [#/Vol] on 08-05-2023 Platelets (Bld) [#/Vol] 234 10 3/uL 150-450 [facility] Protein Auto test strip (U) [Mass/Vol]on 08-05-2023 Protein (U) [Mass/Vol] Negative NEG/TRACE [facility] RBC Auto (Bld) [#/Vol]on RBC (Bld) [#/Vol] 4.76 10 6/uL 4.70-6.10 [facility] Serum or plasma anion gap de terminationon 08-05-2023 Anion gap [Moles/Vol] 12.4 mmol/L [facility] Serum or plasma total choles terol/high density lipoprotein (HDL) cholesterol mass caden 08-05-2023 Cholesterol.total/C holesterol in HDL [Mass ratio] 2.3 {ratio} [facility] Comment on above: 3.3 - 4.4 LOW RISK4. 4 - 7.1 AVERAGE RISK7.1 - 11.0 MODERATE RISK>11.0 HIGH RISK Specific gravity Auto test s trip (U) [Rel density]on 08-05-2023 Specific gravity (U) [Rel density] CLEAR CLEAR [facility] Urine bacteria detection by automated methodon 08-05-2023 Bacteria Auto Ql (U) NONE SEEN #/HPF NONE SEEN [facility] Urine glucose measurement by test strip (mass/volume)on 08-05-2023 Glucose Test strip (U) [Mass/Vol] Negative NEGATIVE [facility] Urine hemoglobin detection b y automated test stripon 08-05-2023 Hemoglobin Auto test strip Ql (U) Negative NEGATIVE [facility] Urine microalbumin/creatinin e mass ratioon 08-05-2023 Albumin/Creatinine DL <= 20 mg/L (U) [Mass ratio] 20.9 mg/g 0.0-29.9 [facility] Comment on above: NO MICROALBUMINURIA 0-29 MG/GCLINICAL MICROALBUMINURIA 30-300 MG/GMACROALBUMINURIA >300 MG/G Urine nitrite detection by a utomated test stripon 08-05-2023 Nitrite Auto test strip Ql (U) Negative NEGATIVE [facility] Urine protein/creatinine rat ioon 08-05-2023 Protein/Creatinine (U) [Ratio] 0.11 [facility] Urine sediment leukocyte cou nt by microscopy (number/high power field)on 08-05-2023 WBC LM.HPF (Urine sed) [#/Area] NONE SEEN #/HPF NONE SEEN [facility] Urobilinogen Auto test strip (U) [Mass/Vol]on 08-05-2023 Urobilinogen Qn (U) 0.2 {Yared'U}/dL 0.2-1.0 [facility] pH Auto test strip (U)on pH (U) 5.5 [pH] 5.0-9.0 [facility] PTH INTACTon 06-14-2022 PTH, Intact 48 pg/mL Normal 15-65 [facility] Comment on above: Performed By: #### P THINT #### [facility] [address] [place] [address] Dr. Stu Sequeira HEMOGRAM AND PLATELon 2022 Hematocrit (Bld) [Volume fraction] 47.3 % Normal 42.0-54.0 [facility] Comment on above: Performed By: #### H H #### [facility] [address] [place] [address] Dr. Stu Sequeira Hemoglobin (Bld) [Mass/Vol] 14.7 g/dL Normal 14.0-18.0 [facility] Comment on above: Performed By: #### H H #### [facility] [address] [place] [address] Dr. Stu Sequeira MCH (RBC) [Entitic mass] 31.0 pg Normal 25.9-34.0 [facility] Comment on above: Performed By: #### H H #### [facility] [address] [address] [address] Stu Sequeira MCHC (RBC) [Mass/Vol] 31.1 g/dL Normal 29.9-35.2 [facility] Comment on above: Performed By: #### H H #### [facility] [address] [place] [address] Dr. Stu Sequeira MCV (RBC) [Entitic vol] 99.8 fL Critically high 80.0-94.0 [facility] Comment on above: Performed By: #### H H #### [facility] [address] [place] [address] Dr. Stu Sequeira PLT 268 103/ul Normal 150-450 [facility] Comment on above: Performed By: #### H H #### [facility] [address] [place] [address] Dr. Stu Sequeira RBC 4.74 106/ul Normal 4.70-6.10 [facility] Comment on above: Performed By: #### H H #### [facility] [address] [place] [address] Dr. Stu Sequeira WBC 9.8 103/ul Normal 4.0-11.0 [facility] Comment on above: Performed By: #### H H #### [facility] [address] [place] [address] Dr. Stu Sequeira MAGNESIUMon 06-13-2022 Magnesium [Mass/Vol] 1.6 mg/dL Critically low 1.8-2.4 [facility] Comment on above: Performed By: #### U SANTINO, MG, RENAL #### [facility] [address] [place] [address] Dr. Stu Sequeira RENAL FUNCTION PANELon 06-13 Albumin [Mass/Vol] 3.8 g/dL Normal 3.4-5.0 [facility] Comment on above: Performed By: #### U SANTINO, MG, RENAL #### [facility] [address] [place] [address] Dr. Stu Sequeira Calcium [Mass/Vol] 9.2 mg/dL Normal 8.5-10.1 [facility] Comment on above: Performed By: #### U SANTINO, MG, RENAL #### [facility] [address] [place] [address] Dr. Stu Sequeira Chloride [Moles/Vol] 99 mmol/L Normal 98-107 [facility] Comment on above: Performed By: #### U SANTINO, MG, RENAL #### [facility] [address] [place] [address] Dr. Stu Sequeira CO2 [Moles/Vol] 32.2 mmol/L Critically high 21.0-32.0 [facility] Comment on above: Performed By: #### U SANTINO, MG, RENAL #### [facility] [address] [place] [address] Dr. Stu Sequeira Creatinine [Mass/Vol] 1.58 mg/dL Critically high 0.70-1.30 [facility] Comment on above: Performed By: #### U SANTINO, MG, RENAL #### [facility] [address] [place] [address] Dr. Stu Sequeira EGFR-AF MACEDONIAN 53 mL/min/1.73m2 Critically low >=60 [facility] Comment on above: Performed By: #### U SANTINO, MG, RENAL #### [facility] [address] [place] [address] Dr. Stu Sequeira EGFR-NON AF MACEDONIAN 43 mL/min/1.73m2 Critically low >=60 [facility] Comment on above: Performed By: #### U SANTINO, MG, RENAL #### [facility] [address] [place] [address] Dr. Stu Sequeira Glucose [Mass/Vol] 95 mg/dL Normal 74-106 [facility] Comment on above: Performed By: #### U SANTINO, MG, RENAL #### [facility] [address] [place] [address] Dr. Stu Sequeira Phosphate [Mass/Vol] 4.2 mg/dL Normal 2.6-4.7 [facility] Comment on above: Performed By: #### U SANTINO, MG, RENAL #### [facility] [address] [place] [address] Dr. Stu Sequeira Potassium [Moles/Vol] 4.9 mmol/L Normal 3.5-5.1 [facility] Comment on above: Performed By: #### U SANTINO, MG, RENAL #### [facility] [address] [place] [address] Dr. Stu Sequeira Sodium [Moles/Vol] 138 mmol/L Normal 136-145 [facility] Comment on above: Performed By: #### U SANTINO, MG, RENAL #### [facility] [address] [place] [address] Dr. Stu Sequeira Urea nitrogen [Mass/Vol] 24.0 mg/dL Critically high 7.0-18.0 [facility] Comment on above: Performed By: #### U SANTINO, MG, RENAL #### [facility] [address] [place] [address] Dr. Stu Sequeira UA RANDOM W/MICROSCOPICon BACTERIA TRACE Abnormal NONE SEEN [facility] Comment on above: Performed By: #### U AMIC #### [facility] [address] [place] [address] Dr. Stu Sequeira Bilirubin Ql (U) Negative Normal NEGATIVE [facility] Comment on above: Performed By: #### U AMIC #### [facility] [address] [place] [address] Dr. Stu Sequeira CAST NONE SEEN Normal NONE SEEN [facility] Comment on above: Performed By: #### U AMIC #### [facility] [address] [place] [address] Dr. Stu Sequeira Clarity (U) CLEAR Normal CLEAR [facility] Comment on above: Performed By: #### U AMIC #### [facility] [address] [place] [address] Dr. Stu Sequeira Color (U) YELLOW Normal YELLOW [facility] Comment on above: Performed By: #### U AMIC #### [facility] [address] [place] [address] Dr. Stu Sequeira Crystals LM Nom (Urine sed) NONE SEEN Normal NONE SEEN [facility] Comment on above: Performed By: #### U AMIC #### [facility] [address] [address] [address] Stu Sequeira Epithelial cells LM Ql (Urine sed) RARE Normal NONE SEEN /RARE [facility] Comment on above: Performed By: #### U AMIC #### [facility] [address] [place] [address] Dr. Stu Sequeira Glucose Ql (U) Negative Normal NEGATIVE [facility] Comment on above: Performed By: #### U AMIC #### [facility] [address] [address] [address] Stu Sequeira Hemoglobin Ql (U) Negative Normal NEGATIVE [facility] Comment on above: Performed By: #### U AMIC #### [facility] [address] [place] [address] Dr. Stu Sequeira Ketones Ql (U) Negative Normal NEGATIVE [facility] Comment on above: Performed By: #### U AMIC #### [facility] [address] [place] [address] Dr. Stu Sequeira LEUKOCYTES Negative Normal NEGATIVE [facility] Comment on above: Performed By: #### U AMIC #### [facility] [address] [address] [address] Stu Sequeira MUCOUS NONE SEEN Normal NONE SEEN [facility] Comment on above: Performed By: #### U AMIC #### [facility] [address] [place] [address] Dr. Stu Sequeira Nitrite Ql (U) Negative Normal NEGATIVE [facility] Comment on above: Performed By: #### U AMIC #### [facility] [address] [place] [address] Dr. Stu Sequeira pH (U) 5.5 [pH] Normal 5-9 [facility] Comment on above: Performed By: #### U AMIC #### [facility] [address] [place] [address] Dr. Stu Sequeira RBC NONE SEEN Abnormal 0-2 [facility] Comment on above: Performed By: #### U AMIC #### [facility] [address] [place] [address] Dr. Stu Sequeira SPEC GRAVITY 1.025 Normal 1.005-<=1.02 5 [facility] Comment on above: Performed By: #### U AMIC #### [facility] [address] [place] [address] Dr. Stu Sequeira UA PROTEIN Negative Normal NEGATIVE/ TRACE [facility] Comment on above: Performed By: #### U AMIC #### [facility] [address] [place] [address] Dr. Stu Sequeira Urobilinogen Qn (U) 0.2 {Yared'U}/dL Normal 0.2 - 1. 0 [facility] Comment on above: Performed By: #### U AMIC #### [facility] [address] [place] [address] Dr. Stu Seqeuira WBC 0-2 Abnormal NONE SEEN [facility] Comment on above: Performed By: #### U AMIC #### [facility] [address] [place] [address] Dr. Stu Sequeira URIC ACID SERUMon 06-13-2022 Urate [Mass/Vol] 5.7 mg/dL Normal 3.5-7.2 [facility] Comment on above: Performed By: #### U SANTINO, MG, RENAL #### [facility] [address] [place] [address] Dr. Stu Sequeira URINE T PROTEIN CREAT RATIOo n 06-13-2022 Protein (U) [Mass/Vol] 13.6 mg/dL Critically high <=12.0 [facility] Comment on above: Performed By: #### U RTPCR #### [facility] [address] [place] [address] Dr. Stu Sequeira UR PROT CREAT RAT 0.10 Normal [facility] Comment on above: Performed By: #### U RTPCR #### [facility] [address] [place] [address] Dr. Stu Sequeira URINE CREAT 133.40 mg/dL Normal 20.00-300.00 [facility] Comment on above: Performed By: #### U RTPCR #### [facility] [address] [place] [address] Dr. Stu Sequeira VITAMIN D 25 OHon 01-26-2023 VIT D 25-OH 66.5 ng/mL Normal [facility] Comment on above: Performed By: #### V ITAD #### [facility] [address] [place], [place] [address] Dr. Stu Sequeira VIT D RANGES SEE BELOW Normal [facility] Comment on above: Result Comment: <20 ng/mL Vit D deficient 20 - <30 ng/mL Vit D insufficient 30 - 100 ng/mL Vit D sufficient >100 ng/mL Potential Toxicity Performed By: #### V ITAD #### [facility] [address] [place], [place] [address] Dr. Stu Sequeira ECHOCARDIO M/2D COMPLETEon 0 06-07-2022 ECHOCARDIO M/2D COMPLETE Patient: DON ELKINS Exam Date: 06/07/2022 : 1950 Gender:M Ordering : DR DAMARIS MEIER M.D. Admission #: [id number] Family : DR SAL SABILLON M.D. Order #: [id number] CLICK HERE TO VIEW EXAM ECHOCARDIOGRAM REPORT [...] Meier M.D. on 06/07/2022 at 12:23 Normal [facility] LIPID PROFILEon 05-24-2022 CHOL-HDL RATIO NORM SEE BELOW Normal [facility] Comment on above: Result Comment: 3.3 - 4.4 LOW RISK 4.4 - 7.1 AVERAGE RISK 7.1 - 11.0 MODERATE RISK >11.0 HIGH RISK Performed By: #### L IPID #### [facility] [address] [address] [address] Stu Sequeira Cholesterol [Mass/Vol] 111 mg/dL Normal <=200 [facility] Comment on above: Performed By: #### L IPID #### [facility] [address] [address] [address] Stu Sequeira Cholesterol in HDL [Mass/Vol] 46 mg/dL Normal 40-60 [facility] Comment on above: Performed By: #### L IPID #### [facility] [address] [address] [address] Stu Sequeira Cholesterol in LDL [Mass/Vol] 47.0 mg/dL Normal [facility] Comment on above: Performed By: #### L IPID #### [facility] [address] [address] [address] Stu Sequeira Cholesterol.total/C holesterol in HDL [Mass ratio] 2.4 {ratio} Normal [facility] Comment on above: Performed By: #### L IPID #### [facility] [address] [address] [address] Stu Sequeira HDL NORMAL > or = 60 mg/dl - LO W CARDIOVASCULAR RISK <40 mg/dl - HIGH CARDIOVASCULAR RISK Normal [facility] Comment on above: Performed By: #### L IPID #### [facility] [address] [address] [address] Stu Sequeira LDL CALC NORMAL SEE BELOW Normal [facility] Comment on above: Result Comment: <100 mg/dl OPTIMAL 100 - 129 mg/dl NEAR OR ABOVE OPTIMAL 130 - 159 mg/dl BORDERLINE HIGH 160 - 189 mg/dl HIGH >190 mg/dl VERY HIGH Performed By: #### L IPID #### [facility] [address] [place] [address] Dr. Stu Sequeira Triglyceride [Mass/Vol] 90 mg/dL Normal <=150 [facility] Comment on above: Performed By: #### L IPID #### [facility] [address] [place] [address] Dr. Stu Sequeira VLDL CALC 18.0 mg/dL Normal [facility] Comment on above: Performed By: #### L IPID #### [facility] [address] [place] [address] Dr. Stu Sequeira PTH INTACTon 11-20-2021 PTH, Intact 38 pg/mL Normal 15-65 [facility] Comment on above: Performed By: #### U RTPCR #### [facility] [address] [place] [address] Dr. Stu Sequeira HEMOGRAM AND PLATELon 2021 Hematocrit (Bld) [Volume fraction] 43.5 % Normal 42.0-54.0 [facility] Comment on above: Performed By: #### U RTPCR #### [facility] [address] [place] [address] Dr. Stu Sequeira Hemoglobin (Bld) [Mass/Vol] 14.5 g/dL Normal 14.0-18.0 [facility] Comment on above: Performed By: #### U RTPCR #### [facility] [address] [place] [address] Dr. Stu Sequeira MCH (RBC) [Entitic mass] 31.2 pg Normal 25.9-34.0 [facility] Comment on above: Performed By: #### U RTPCR #### [facility] [address] [place] [address] Dr. Stu Sequeira MCHC (RBC) [Mass/Vol] 33.3 g/dL Normal 29.9-35.2 [facility] Comment on above: Performed By: #### U RTPCR #### [facility] [address] [address] [address] Stu Sequeira MCV (RBC) [Entitic vol] 93.5 fL Normal 80.0-94.0 [facility] Comment on above: Performed By: #### U RTPCR #### [facility] [address] [place] [address] Dr. Stu Sequeira PLT 259 103/ul Normal 150-450 [facility] Comment on above: Performed By: #### U RTPCR #### [facility] [address] [address] [address] Stu Sequeira RBC 4.65 106/ul Critically low 4.70-6.10 [facility] Comment on above: Performed By: #### U RTPCR #### [facility] [address] [place] [address] Dr. Stu Sequeira WBC 9.9 103/ul Normal 4.0-11.0 [facility] Comment on above: Performed By: #### U RTPCR #### [facility] [address] [place] [address] Dr. Stu Sequeira MAGNESIUMon 11-17-2021 Magnesium [Mass/Vol] 2.0 mg/dL Normal 1.8-2.4 [facility] Comment on above: Performed By: #### U RTPCR #### [facility] [address] [place] [address] Dr. Stu Sequeira RENAL FUNCTION PANELon 11-17 Albumin [Mass/Vol] 3.5 g/dL Normal 3.4-5.0 [facility] Comment on above: Performed By: #### U RTPCR #### [facility] [address] [place] [address] Dr. Stu Sequeira Calcium [Mass/Vol] 8.8 mg/dL Normal 8.5-10.1 [facility] Comment on above: Performed By: #### U RTPCR #### [facility] [address] [place] [address] Dr. Stu Sequeira Chloride [Moles/Vol] 105 mmol/L Normal 98-107 [facility] Comment on above: Performed By: #### U RTPCR #### [facility] [address] [address] [address] Stu Sequeira CO2 [Moles/Vol] 28.4 mmol/L Normal 21.0-32.0 [facility] Comment on above: Performed By: #### U RTPCR #### [facility] [address] [address] [address] Stu Sequeira Creatinine [Mass/Vol] 1.69 mg/dL Critically high 0.70-1.30 [facility] Comment on above: Performed By: #### U RTPCR #### [facility] [address] [address] [address] Stu Sequeira EGFR-AF MACEDONIAN 49 mL/min/1.73m2 Critically low >=60 [facility] Comment on above: Performed By: #### U RTPCR #### [facility] [address] [address] [address] Stu Sequeira EGFR-NON AF MACEDONIAN 40 mL/min/1.73m2 Critically low >=60 [facility] Comment on above: Performed By: #### U RTPCR #### [facility] [address] [place] [address] Dr. Stu Sequeira Glucose [Mass/Vol] 120 mg/dL Critically high 74-[address] [facility] Comment on above: Performed By: #### U RTPCR #### [facility] [address] [address] [address] Stu Sequeira Phosphate [Mass/Vol] 3.7 mg/dL Normal 2.6-4.7 [facility] Comment on above: Performed By: #### U RTPCR #### [facility] [address] [address] [address] Stu Sequeira Potassium [Moles/Vol] 5.0 mmol/L Normal 3.5-5.1 [facility] Comment on above: Performed By: #### U RTPCR #### [facility] [address] [address] [address] Stu Sequeira Sodium [Moles/Vol] 139 mmol/L Normal 136-145 [facility] Comment on above: Performed By: #### U RTPCR #### [facility] [address] [address] [address] Stu Sequeira Urea nitrogen [Mass/Vol] 21.0 mg/dL Critically high 7.0-18.0 [facility] Comment on above: Performed By: #### U RTPCR #### [facility] [address] [address] [address] Stu Sequeira UA RANDOM W/MICROSCOPICon BACTERIA NONE SEEN Normal NONE SEEN [facility] Comment on above: Performed By: #### U AMIC #### [facility] [address] [place] [address] Dr. Stu Sequeira Bilirubin Ql (U) Negative Normal NEGATIVE [facility] Comment on above: Performed By: #### U AMIC #### [facility] [address] [place] [address] Dr. Stu Sequeira CAST NONE SEEN Normal NONE SEEN [facility] Comment on above: Performed By: #### U AMIC #### [facility] [address] [place] [address] Dr. Stu Sequeira Clarity (U) SL CLOUDY Abnormal CLEAR [facility] Comment on above: Performed By: #### U AMIC #### [facility] [address] [place] [address] Dr. Stu Sequeira Color (U) LT. YELLOW Normal YELLOW [facility] Comment on above: Performed By: #### U AMIC #### [facility] [address] [place] [address] Dr. Stu Sequeira Crystals LM Nom (Urine sed) NONE SEEN Normal NONE SEEN [facility] Comment on above: Performed By: #### U AMIC #### [facility] [address] [place] [address] Dr. Stu Sequeira Epithelial cells LM Ql (Urine sed) RARE Normal NONE SEEN /RARE [facility] Comment on above: Performed By: #### U AMIC #### [facility] [address] [place] [address] Dr. Stu Sequeira Glucose Ql (U) Negative Normal NEGATIVE [facility] Comment on above: Performed By: #### U AMIC #### [facility] [address] [address] [address] Stu Sequeira Hemoglobin Ql (U) Negative Normal NEGATIVE [facility] Comment on above: Performed By: #### U AMIC #### [facility] [address] [place] [address] Dr. Stu Sequeira Ketones Ql (U) Negative Normal NEGATIVE [facility] Comment on above: Performed By: #### U AMIC #### [facility] [address] [address] [address] Stu Sequeira LEUKOCYTES Negative Normal NEGATIVE [facility] Comment on above: Performed By: #### U AMIC #### [facility] [address] [place] [address] Dr. Stu Sequeira MUCOUS NONE SEEN Normal NONE SEEN [facility] Comment on above: Performed By: #### U AMIC #### [facility] [address] [address] [address] Stu Sequeira Nitrite Ql (U) Negative Normal NEGATIVE [facility] Comment on above: Performed By: #### U AMIC #### [facility] [address] [place] [address] Dr. Stu Sequeira pH (U) 5.0 [pH] Normal 5-9 [facility] Comment on above: Performed By: #### U AMIC #### [facility] [address] [place] [address] Dr. Stu Sequeira RBC 0-2 Normal 0-2 [facility] Comment on above: Performed By: #### U AMIC #### [facility] [address] [place] [address] Dr. Stu Sequeira SPEC GRAVITY 1.025 Normal 1.005-<=1.02 5 [facility] Comment on above: Performed By: #### U AMIC #### [facility] [address] [place] [address] Dr. Stu Sequeira UA PROTEIN Negative Normal NEGATIVE/ TRACE [facility] Comment on above: Performed By: #### U AMIC #### [facility] [address] [place] [address] Dr. Stu Sequeira Urobilinogen Qn (U) 0.2 {Yared'U}/dL Normal 0.2 - 1. 0 [facility] Comment on above: Performed By: #### U AMIC #### [facility] [address] [place] [address] Dr. Stu Sequeira WBC NONE SEEN Normal NONE SEEN [facility] Comment on above: Performed By: #### U AMIC #### [facility] [address] [place] [address] Dr. Stu Sequeira URIC ACID SERUMon 11-17-2021 Urate [Mass/Vol] 7.6 mg/dL Critically high 3.5-7.2 [facility] Comment on above: Performed By: #### U RTPCR #### [facility] [address] [place] [address] Dr. Stu Sequeira URINE T PROTEIN CREAT RATIOo n 11-17-2021 Protein (U) [Mass/Vol] 19.9 mg/dL Critically high <=12.0 [facility] Comment on above: Performed By: #### U RTPCR #### [facility] [address] [place] [address] Dr. Stu Sequeira UR PROT CREAT RAT 0.13 Normal [facility] Comment on above: Performed By: #### U RTPCR #### [facility] [address] [place] [address] Dr. Stu Sequeira URINE CREAT 151.49 mg/dL Normal 20.00-300.00 [facility] Comment on above: Performed By: #### U RTPCR #### [facility] [address] [place] [address] Dr. Stu Sequeira VITAMIN D 25 OHon 11-17-2021 VIT D 25-OH 52.3 ng/mL Normal [facility] Comment on above: Performed By: #### U RTPCR #### [facility] [address] [place] [address] Dr. Stu Sequeira VIT D RANGES SEE BELOW Normal [facility] Comment on above: Result Comment: <20 ng/mL Vit D deficient 20 - <30 ng/mL Vit D insufficient 30 - 100 ng/mL Vit D sufficient >100 ng/mL Potential Toxicity Performed By: #### U RTPCR #### [facility] [address] [place] [address] Dr. Stu Sequeira Patient Correspondenceon Patient Correspondence [id number]:127 Normal [facility] Patient Letter FTon 2020 Patient Letter [facility] (Inserted Image. Caroline ble to display) May 04, 2021 Dear Don Elkins, I [...] Urology Specialists OVIDIO VALENTIN, Tam Silva Normal [facility] Basic Metabolic Panlon 12-20 Anion gap [Moles/Vol] 8 mmol/L Low 9-18 [facility] Calcium [Mass/Vol] 8.9 mg/dL Normal 8.5-10.2 [facility] Chloride [Moles/Vol] 103 mmol/L Normal 97-105 [facility] CO2 [Moles/Vol] 27 mmol/L Normal 22-30 [facility] Creatinine [Mass/Vol] 1.52 mg/dL High 0.73-1.22 [facility] eGFR- Amer. 55 Normal [facility] eGFR-All Other Races 46 . Normal [facility] Comment on above: Result Comment: eGFR (Estimated [...] GFR. Glucose [Mass/Vol] 238 mg/dL High 74-99 [facility] Comment on above: Result Comment: The [place] Diabetes Association (ADA) provides guidance for cutoff [...] Standards of Medical Care in Diabetes 2016, [place] Diabetes Association. Diabetes Care. 2016.39(Suppl 1). Potassium [Moles/Vol] 4.6 mmol/L Normal 3.7-5.1 [facility] Sodium [Moles/Vol] 138 mmol/L Normal 136-144 [facility] Urea nitrogen [Mass/Vol] 19 mg/dL Normal 9-24 [facility] CNOVSPon 12-20-2020 CNOVSP Visit (SP) Office (H EMASA) DON ELKINS ([id number]) 1950 M Date Time Provider Department 12/20/20 [...] PHYSICIANS: Dr. Wilson, Dr. Cortez, Dr. 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 Normal [facility] Remote CBCDIF (for [facility] use o nly)on 12-20-2020 Abs Baso 0.08 k/uL Normal <0.11 [facility] Abs Union 0.55 k/uL Normal <0.87 [facility] Abs Neut 5.06 k/uL Normal 1.45-7.50 [facility] Absolute nRBC <0.01 Normal <0.01 [facility] Basophils/100 WBC (Bld) 1.0 % Normal [facility] DTYPE Auto Diff Normal [facility] Eosinophils (Bld) [#/Vol] 0.26 10*3/uL Normal <0.46 [facility] Eosinophils/100 WBC (Bld) 3.3 % Normal [facility] Erythrocyte distribution width (RBC) [Ratio] 12.2 % Normal 11.5-15.0 [facility] Hematocrit (Bld) [Volume fraction] 37.0 % Low 39.0-51.0 [facility] Hemoglobin (Bld) [Mass/Vol] 12.7 g/dL Low 13.0-17.0 [facility] Lymphocytes (Bld) [#/Vol] 1.86 10*3/uL Normal 1.00-4.00 [facility] Lymphocytes/100 WBC (Bld) 23.8 % Normal [facility] MCH 30.7 pG Normal 26.0-34.0 [facility] MCHC (RBC) [Mass/Vol] 34.3 g/dL Normal 30.5-36.0 [facility] MCV (RBC) [Entitic vol] 89.4 fL Normal 80.0-100.0 [facility] Monocytes/100 WBC (Bld) 7.0 % Normal [facility] Neutrophils/100 WBC (Bld) 64.9 % Normal [facility] NRBCs 0.0 /100 WBC Normal 0 [facility] Platelet mean volume (Bld) [Entitic vol] 11.9 fL Normal 9.0-12.7 [facility] Platelets (Bld) [#/Vol] 207 10*3/uL Normal 150-400 [facility] RBC (Bld) [#/Vol] 4.14 10*6/uL Low 4.20-6.00 [facility] WBC (Bld) [#/Vol] 7.81 10*3/uL Normal 3.70-11.00 [facility] CNPNon 12-19-2020 CNPN Telephone (HEMASA) DON ELKINS ([id number]) 1950 Date Time Provider Department 12/19/20 CLAUDIO PARKER During your visit today, we recorded the following information about you: Marianna Haque RN 12/19/2020 2:08 PM Signed Orders for CBC, CMP, and Prothrombin Gene Mutation pended. Please review and approve. 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] Prostate cancer (HCC) [C61] Hypercoagulable state (HCC) [D68.59] Personal history of venous thrombosis and embolism [Z86.718] Order(s):CBC + DIFF (FOR REMOTE [facility] USE) [SQRCBCDF] Order #: [id number] FUTURE BASIC METABOLIC PNL [SQBMP] Order #: [id number] FUTURE Prescriptions as of 02/16/2021 - atorvastatin [...] Encounter Status:Closed by MAYNOR WALLIS on 02/16/21 [facility] CNOVSP Visit (SP) Office (H EMASA) DON ELKINS ([id number]) 1950 M Date Time Provider Department 11/24/20 11:15 AM CLAUDIO PARKER During your visit today, we recorded the following information about you: Temperature Pulse Respiration Blood pressure 97.4 degrees 70/minute 16/minute 165/88 Weight Height 112.1 kg 1.727 m Claudio Parker MD 11/24/2020 2:10 PM Signed PATIENT NAME: Don Elkins DATE: 11/24/2020 PRIMARY CARE PHYSICIAN: Dr. Sal Sabillon/Marj Demarco, CUSTOMER SERVICE LEADER OTHER PHYSICIANS: Dr. Wilson, Dr. Cortez, Dr. Arvizu ([facility] Neurology) HPI: This is a 70 [...] Coronary arteriosclerosis - DVT (deep venous thrombosis) ([facility]) (more content not included)... Normal [facility] Consent for Procedure/Surger yon 11-15-2020 Consent for Procedure/Surgery [id number]:127 Normal [facility] Ambulatory Clinical Summaryo n 11-14-2020 Ambulatory Clinical Summary {[id number]}CD:[id number] [id number] Normal [facility] Ambulatory Clinical Summary {[id number]}CD:6143 68 Normal [facility] Gastroenterology Office/Clin ic Noteon 11-14-2020 Gastroenterology Office/Clinic Note Chief Complaint self ref- diarrhea HPI Staff This is a 70 year old male who presents today for a self referral for diarrhea. History of Present Illness The patient or their guardian verbally consented to allow [employer] [facility] Karina to record this visit. The 70-year-old white male presents today for dysphagia and diarrhea. He was evaluated by Dr. Stone Arboleda in 2014 for dysphagia and history of colon polyps. He proceeded with an EGD and esophageal motility testing and was diagnosed with achalasia. The patient was referred to [facility], but he states he was not [...] colon polyps. His last colonoscopy was in 2015 and he is due for another one. [...] by Dr. Arboleda. He was referred to [facility] at that time, but pneumatic dilation was not done or recommended by [facility] as, according to the patient, they were concerned about possible perforation. The patient continued to have sporadic dysphagia. I will repeat an EGD for re-evaluation. 5. Small intestinal bacterial overgrowth (SIBO) (K63.89: Other specified diseases of intestine) The patient will start probiotics and antibiotics. ATTESTATION: Documentation services were performed by SOTO after patient consented to recording for virtual seafood technology specialist and provider reviewed before signing. SOTO: Marcelina Lai Follow-up With When Contact Information JANICE VALENTIN, BHARGAVI Braun, JENNIFER Within 2 weeks [facility] [address], [place] [address]- Additional Instructions: Patient Education Chronic Diarrhea Problem List/Past Medical History Ongoing Colbert disease BMI 35.0-35.9,adult Diabetes Frequency GERD Hematuria Hx of long-term use of blood thinners Hypertension Kidney stone Microscopic hematuria- with sy (more content not included)... Normal [facility] Comment on above: Result Comment: Elec tronically Signed By: Kade CAMACHO MD\.br\Date and Time Signed: 11/14/20 14:16 EDT\.br\Electronically Co-Signed By: Marcelina Lai\.br\Date and Time Co-Signed: 11/14/20 13:28 EDT Patient Educationon 11-15-19 21 Patient Education Gastroenterology Chronic Diarrhea Diarrhea is [...] and water are not available, use [employer]. ? Make sure that all people in your household wash their hands well and often. ? Take xldf-xic-nqbaejs and prescription medicines only as told by [...] and water are not available, use [employer]. ? It is important that you treat your diarrhea as told by your health care provider. This information is not intended to replace advice given to you by your health care provider. Make sure you discuss any questions you have with your health care provider. Document Released: 07/25/2004 Document Revised: 07/31/2018 Document Reviewed: 03/24/2017 [employer] Patient Education ? 2019 [employer]. [facility] POCT Glucoseon 04-13-2019 Glucose [Mass/Vol] 202 mg/dL Critically high 60-115 M [facility] Comment on above: Performed By: #### P GLU #### [facility] [address] [facility] [address] POC Performed on ACCU-CHEK [facility] Comment on above: Performed By: #### P GLU #### [facility] [address] [facility] [address] Glucose [Mass/Vol] 202 mg/dL High 60 - 115 mg/dl [place], [place] Interpretation and review of laboratory results Abnormal [place] Performed on ACCU-CHEK [place] Glucose [Mass/Vol] 223 mg/dL Critically high 60-115 M [facility] Comment on above: Performed By: #### P GLU #### [facility] [address] [facility] [address] POC Performed on ACCU-CHEK [facility] Comment on above: Performed By: #### P GLU #### [facility] [address] [facility] [address] Glucose [Mass/Vol] 223 mg/dL High 60 - 115 mg/dl [place] Interpretation and review of laboratory results Abnormal [place] Performed on [employer]CHEK [place] PROTIME-INRon 04-13-2019 INR Coag (PPP) [Relative time] 2.3 {INR} [place] Comment on above: Warfarin Therapy INR Therapeutic: 2.0-3.0 With Mechanical Valve: >2.5 Low-intensity Therapeutic Range: 1.5-2.0 Mod-intensity Therapeutic Range: 2.0-3.0 High-intensity Therapeutic Range: 2.5-3.5 HIgh-intensity Therapeutic Range: 3.0-4.0 Common Critical/Alarm Value: 5.0 Common Upper Limit Reported: 10.0 Effective 11/26/2018: Please note methodology and/or reference ranges have changed. Interpretation and review of laboratory results Abnormal [place] PT Coag (PPP) [Time] 26.5 s High [place] Comment on above: Effective 11/26/18 Please note methodology and/or reference ranges have changed. Prothrombin Timeon 9 INR Coag (PPP) [Relative time] 2.3 {INR} Normal [facility] Comment on above: Result Comment: Warf brian Therapy INR Therapeutic: 2.0-3.0 With Mechanical Valve: >2.5 Low-intensity Therapeutic Range: 1.5-2.0 Mod-intensity Therapeutic Range: 2.0-3.0 High-intensity Therapeutic Range: 2.5-3.5 HIgh-intensity Therapeutic Range: 3.0-4.0 Common Critical/Alarm Value: 5.0 Common Upper Limit Reported: 10.0 Effective 11/26/2018: Please note methodology and/or reference ranges have changed. Performed By: #### P GLU #### [facility] [address] [place] [address] PT Coag (PPP) [Time] 26.5 s Critically high 12.3-14.9 [facility] Comment on above: Result Comment: Effe ctive 11/26/18 Please note methodology and/or reference ranges have changed. Performed By: #### P GLU #### [facility] [address] [place] [address] POCT Glucoseon 04-12-2019 Glucose [Mass/Vol] 154 mg/dL Critically high 60-115 M [facility] Comment on above: Performed By: #### P GLU #### [facility] [address] [place] [address] POC Performed on ACCU-CHEK Normal [facility] Comment on above: Performed By: #### P GLU #### [facility] [address] [place] [address] Glucose [Mass/Vol] 154 mg/dL High 60 - 115 mg/dl [place] Interpretation and review of laboratory results Abnormal [place] Performed on ACCU-CHEK [place] Glucose [Mass/Vol] 241 mg/dL Critically high 60-115 M [facility] Comment on above: Performed By: #### P T #### [facility] [address] [place] [address] POC Performed on ACCU-CHEK Normal [facility] Comment on above: Performed By: #### P T #### [facility] [address] [place] [address] Glucose [Mass/Vol] 241 mg/dL High 60 - 115 mg/dl [place] Interpretation and review of laboratory results Abnormal [place] Performed on ACCU-CHEK [place] Glucose [Mass/Vol] 194 mg/dL Critically high 60-115 M [facility] Comment on above: Performed By: #### P T #### [facility] [address] [place] [address] POC Performed on ACCU-CHE Normal [facility] Comment on above: Performed By: #### P T #### [facility] [address] [place] [address] Glucose [Mass/Vol] 194 mg/dL High 60 - 115 mg/dl [place] Interpretation and review of laboratory results Abnormal [place] Performed on [facility] Glucose [Mass/Vol] 228 mg/dL Critically high 60-115 M [facility] Comment on above: Performed By: #### P T #### [facility] [address] [place] [address] POC Performed on [facility] Comment on above: Performed By: #### P T #### [facility] [address] [facility] [address] Glucose [Mass/Vol] 228 mg/dL High 60 - 115 mg/dl [place] Interpretation and review of laboratory results Abnormal [place] Performed on [facility] PROTIME-INRon 04-12-2019 INR Coag (PPP) [Relative time] 2.1 {INR} [place] Comment on above: Warfarin Therapy INR Therapeutic: 2.0-3.0 With Mechanical Valve: >2.5 Low-intensity Therapeutic Range: 1.5-2.0 Mod-intensity Therapeutic Range: 2.0-3.0 High-intensity Therapeutic Range: 2.5-3.5 HIgh-intensity Therapeutic Range: 3.0-4.0 Common Critical/Alarm Value: 5.0 Common Upper Limit Reported: 10.0 Effective 11/26/2018: Please note methodology and/or reference ranges have changed. Interpretation and review of laboratory results Abnormal [place] PT Coag (PPP) [Time] 24.3 s High [place] Comment on above: Effective 11/26/18 Please note methodology and/or reference ranges have changed. Prothrombin Timeon 9 INR Coag (PPP) [Relative time] 2.1 {INR} [facility] Comment on above: Result Comment: Warf brian Therapy INR Therapeutic: 2.0-3.0 With Mechanical Valve: >2.5 Low-intensity Therapeutic Range: 1.5-2.0 Mod-intensity Therapeutic Range: 2.0-3.0 High-intensity Therapeutic Range: 2.5-3.5 HIgh-intensity Therapeutic Range: 3.0-4.0 Common Critical/Alarm Value: 5.0 Common Upper Limit Reported: 10.0 Effective 11/26/2018: Please note methodology and/or reference ranges have changed. Performed By: #### P T #### [facility] [address] [place] [address] PT Coag (PPP) [Time] 24.3 s Critically high 12.3-14.9 [facility] Comment on above: Result Comment: Effe ctive 11/26/18 Please note methodology and/or reference ranges have changed. Performed By: #### P T #### [facility] [address] [place] [address] POCT Glucoseon 04-11-2019 Glucose [Mass/Vol] 234 mg/dL Critically high 60-115 M [facility] Comment on above: Performed By: #### P T #### [facility] [address] [place] [address] POC Performed on ACCU-CHEK Normal [facility] Comment on above: Performed By: #### P T #### [facility] [address] [place] [address] Glucose [Mass/Vol] 234 mg/dL High 60 - 115 mg/dl [place] Interpretation and review of laboratory results Abnormal [place] Performed on ACCU-CHEK [facility], [place] Glucose [Mass/Vol] 246 mg/dL Critically high 60-115 M [facility] Comment on above: Performed By: #### P T #### [facility] [address] [place] [address] POC Performed on ACCU-CHEK Normal [facility] Comment on above: Performed By: #### P T #### [facility] [address] [place] [address] Glucose [Mass/Vol] 246 mg/dL High 60 - 115 mg/dl [place] Interpretation and review of laboratory results Abnormal [place] Performed on ACCU-CHEK [facility], [place] Glucose [Mass/Vol] 258 mg/dL Critically high 60-115 M [place] Comment on above: Performed By: #### P T #### [facility] [address] [facility] [address] Interpretation and review of laboratory results Abnormal [place] Performed on ACCU-CHEK [place] Glucose [Mass/Vol] 249 mg/dL Critically high 60-115 M [facility] Comment on above: Performed By: #### P T #### [facility] [address] [facility] [address] POC Performed on [facility] Comment on above: Performed By: #### P T #### [facility] [address] [facility] [address] Glucose [Mass/Vol] 249 mg/dL High 60 - 115 mg/dl [place] Interpretation and review of laboratory results Abnormal [place] Performed on ACCU-CHEK [place] PROTIME-INRon 04-11-2019 INR Coag (PPP) [Relative time] 1.6 {INR} [place] Comment on above: Warfarin Therapy INR Therapeutic: 2.0-3.0 With Mechanical Valve: >2.5 Low-intensity Therapeutic Range: 1.5-2.0 Mod-intensity Therapeutic Range: 2.0-3.0 High-intensity Therapeutic Range: 2.5-3.5 HIgh-intensity Therapeutic Range: 3.0-4.0 Common Critical/Alarm Value: 5.0 Common Upper Limit Reported: 10.0 Effective 11/26/2018: Please note methodology and/or reference ranges have changed. Interpretation and review of laboratory results Abnormal [place] PT Coag (PPP) [Time] 19.6 s High [place] Comment on above: Effective 11/26/18 Please note methodology and/or reference ranges have changed. Prothrombin Timeon 9 INR Coag (PPP) [Relative time] 1.6 {INR} [facility] Comment on above: Result Comment: Warf brian Therapy INR Therapeutic: 2.0-3.0 With Mechanical Valve: >2.5 Low-intensity Therapeutic Range: 1.5-2.0 Mod-intensity Therapeutic Range: 2.0-3.0 High-intensity Therapeutic Range: 2.5-3.5 HIgh-intensity Therapeutic Range: 3.0-4.0 Common Critical/Alarm Value: 5.0 Common Upper Limit Reported: 10.0 Effective 11/26/2018: Please note methodology and/or reference ranges have changed. Performed By: #### P T #### [facility] [address] [place] [address] PT Coag (PPP) [Time] 19.6 s Critically high 12.3-14.9 [facility] Comment on above: Result Comment: Effe ctive 11/26/18 Please note methodology and/or reference ranges have changed. Performed By: #### P T #### [facility] [address] [place] [address] POCT Glucoseon 04-10-2019 Glucose [Mass/Vol] 290 mg/dL Critically high 60-115 M [facility] Comment on above: Performed By: #### P T #### [facility] [address] [place] [address] POC Performed on ACCU-CHE Normal [facility] Comment on above: Performed By: #### P T #### [facility] [address] [place] [address] Glucose [Mass/Vol] 290 mg/dL High 60 - 115 mg/dl [place] Interpretation and review of laboratory results Abnormal [place] Performed on ACCU-CHEK [place] Glucose [Mass/Vol] 337 mg/dL Critically high 60-115 M [facility] Comment on above: Performed By: #### P GLU #### [facility] [address] [place] [address] POC [facility] Comment on above: Performed By: #### P GLU #### [facility] [address] [place] [address] Glucose [Mass/Vol] 337 mg/dL High 60 - 115 mg/dl [place] Interpretation and review of laboratory results Abnormal [place] Performed on [facility] [place] Glucose [Mass/Vol] 313 mg/dL Critically high 60-115 M [facility] Comment on above: Performed By: #### P GLU #### [facility] [address] [place] [address] POC [facility] Comment on above: Performed By: #### P GLU #### [facility] [address] [facility] [address] Glucose [Mass/Vol] 313 mg/dL High 60 - 115 mg/dl [place] Interpretation and review of laboratory results Abnormal [place] Performed on [facility] Glucose [Mass/Vol] 309 mg/dL Critically high 60-115 M [facility] Comment on above: Performed By: #### P GLU #### [facility] [address] [place] [address] POC [facility] Comment on above: Performed By: #### P GLU #### [facility] [address] [place] [address] Glucose [Mass/Vol] 309 mg/dL High 60 - 115 mg/dl [place] Interpretation and review of laboratory results Abnormal [place] Performed on [facility] [place] PROTIME-INRon 04-10-2019 INR Coag (PPP) [Relative time] 1.1 {INR} [place] Comment on above: Warfarin Therapy INR Therapeutic: 2.0-3.0 With Mechanical Valve: >2.5 Low-intensity Therapeutic Range: 1.5-2.0 Mod-intensity Therapeutic Range: 2.0-3.0 High-intensity Therapeutic Range: 2.5-3.5 HIgh-intensity Therapeutic Range: 3.0-4.0 Common Critical/Alarm Value: 5.0 Common Upper Limit Reported: 10.0 Effective 11/26/2018: Please note methodology and/or reference ranges have changed. PT Coag (PPP) [Time] 14.7 s [facility], [place] Comment on above: Effective 11/26/18 Please note methodology and/or reference ranges have changed. Prothrombin Timeon 9 INR Coag (PPP) [Relative time] 1.1 {INR} Normal [facility] Comment on above: Result Comment: Warf brian Therapy INR Therapeutic: 2.0-3.0 With Mechanical Valve: >2.5 Low-intensity Therapeutic Range: 1.5-2.0 Mod-intensity Therapeutic Range: 2.0-3.0 High-intensity Therapeutic Range: 2.5-3.5 HIgh-intensity Therapeutic Range: 3.0-4.0 Common Critical/Alarm Value: 5.0 Common Upper Limit Reported: 10.0 Effective 11/26/2018: Please note methodology and/or reference ranges have changed. Performed By: #### P GLU #### [facility] [address] [place] [address] PT Coag (PPP) [Time] 14.7 s Normal 12.3-14.9 [facility] Comment on above: Result Comment: Effe ctive 11/26/18 Please note methodology and/or reference ranges have changed. Performed By: #### P GLU #### [facility] [address] [place] [address] Basic Metabolic Panel Reflex Mgon 04-09-2019 Anion gap [Moles/Vol] 10 mmol/L Normal 9-15 [facility] Comment on above: Performed By: #### T S3C #### [facility] [address] [place] [address] Calcium [Mass/Vol] 8.2 mg/dL Low 8.5-9.9 [facility] Comment on above: Performed By: #### T S3C #### [facility] [address] [place] [address] Chloride [Moles/Vol] 98 mmol/L Normal 95-107 [facility] Comment on above: Performed By: #### T S3C #### [facility] [address] [place] [address] CO2 [Moles/Vol] 23 mmol/L Normal 20-31 [facility] Comment on above: Performed By: #### T S3C #### [facility] [address] [place] [address] Creatinine [Mass/Vol] 1.38 mg/dL Critically high 0.70-1.20 [facility] Comment on above: Performed By: #### T S3C #### [facility] [address] [place] [address] GFR/1.73 sq M predicted among blacks MDRD (S/P/Bld) [Vol rate/Area] mL/min/{1.73_m2} Normal >60 [facility] Comment on above: Result Comment: >60 mL/min/1.73m2 EGFR, calc. for ages 18 and older using the MDRD formula (not corrected for weight), is valid for stable renal function. Performed By: #### T S3C #### [facility] [address] [place] [address] GFR/1.73 sq M.predicted MDRD (S/P/Bld) [Vol rate/Area] 51.1 mL/min/{1.73_m2} Low >60 [facility] Comment on above: Result Comment: >60 mL/min/1.73m2 EGFR, calc. for ages 18 and older using the MDRD formula (not corrected for weight), is valid for stable renal function. Performed By: #### T S3C #### [facility] [address] [place] [address] Glucose [Mass/Vol] 266 mg/dL Critically high 70-99 M [facility] Comment on above: Performed By: #### T S3C #### [facility] [address] [place] [address] Potassium reflex Mg 4.0 mEq/L Normal 3.4-4.9 [facility] Comment on above: Performed By: #### T S3C #### [facility] [address] [place] [address] Sodium [Moles/Vol] 131 mmol/L Low 135-144 [facility] Comment on above: Performed By: #### T S3C #### [facility] [address] [place] [address] Urea nitrogen [Mass/Vol] 13 mg/dL Normal 8-23 [facility] Comment on above: Performed By: #### T S3C #### [facility] [address] [place] [address] Basic Metabolic Panel w/ Ref anthony to MGon 04-09-2019 Anion gap [Moles/Vol] 10 mmol/L [place] Calcium [Mass/Vol] 8.2 mg/dL Low 8.5 - 9.9 mg/dL [place] Chloride [Moles/Vol] 98 mmol/L [place] CO2 [Moles/Vol] 23 mmol/L [place] Creatinine [Mass/Vol] 1.38 mg/dL High 0.7 - 1.2 mg/dL [place] GFR >60.0 >60 [place] Comment on above: >60 mL/min/1.73m2 EG FR, calc. for ages 18 and older using the MDRD formula (not corrected for weight), is valid for stable renal function. GFR Non- 51.1 Low >60 [place] Comment on above: >60 mL/min/1.73m2 EG FR, calc. for ages 18 and older using the MDRD formula (not corrected for weight), is valid for stable renal function. Glucose [Mass/Vol] 266 mg/dL High 70 - 99 mg/dL [place] Interpretation and review of laboratory results Abnormal [place] Potassium [Moles/Vol] 4.0 mmol/L [place] Sodium [Moles/Vol] 131 mmol/L [place] Urea nitrogen [Mass/Vol] 13 mg/dL 8 - 23 mg/dL [place] CBC With Platelet and Differ entialon 11-22-2019 Basophils (Bld) [#/Vol] 0.1 10*3/uL Normal 0.0-0.2 [facility] Comment on above: Performed By: #### T S3C #### [facility] [address] [place] [address] Basophils/100 WBC (Bld) 0.7 % Normal [facility] Comment on above: Performed By: #### T S3C #### [facility] [address] [place] [address] Eosinophils (Bld) [#/Vol] 0.5 10*3/uL Normal 0.0-0.7 [facility] Comment on above: Performed By: #### T S3C #### [facility] [address] [place] [address] Eosinophils/100 WBC (Bld) 5.9 % Normal [facility] Comment on above: Performed By: #### T S3C #### [facility] [address] [place] [address] Erythrocyte distribution width (RBC) [Ratio] 12.6 % Normal 11.5-14.5 [facility] Comment on above: Performed By: #### T S3C #### [facility] [address] [place] [address] Hematocrit (Bld) [Volume fraction] 31.5 % Low 42.0-52.0 [facility] Comment on above: Performed By: #### T S3C #### [facility] [address] [place] [address] Hemoglobin (Bld) [Mass/Vol] 10.6 g/dL Low 14.0-18.0 [facility] Comment on above: Performed By: #### T S3C #### [facility] [address] [place] [address] Lymphocytes (Bld) [#/Vol] 1.0 10*3/uL Normal 1.0-4.8 [facility] Comment on above: Performed By: #### T S3C #### [facility] [address] [place] [address] Lymphocytes/100 WBC (Bld) 12.8 % Normal [facility] Comment on above: Performed By: #### T S3C #### [facility] [address] [place] [address] MCH (RBC) [Entitic mass] 31.3 pg Normal 27.0-31.3 [facility] Comment on above: Performed By: #### T S3C #### [facility] [address] [place] [address] MCHC (RBC) [Mass/Vol] 33.8 % Normal 33.0-37.0 [facility] Comment on above: Performed By: #### T S3C #### [facility] [address] [place] [address] MCV (RBC) [Entitic vol] 92.8 fL Normal 80.0-100.0 [facility] Comment on above: Performed By: #### T S3C #### [facility] [address] [place] [address] Monocytes (Bld) [#/Vol] 0.7 10*3/uL Normal 0.2-0.8 [facility] Comment on above: Performed By: #### T S3C #### [facility] [address] [place] [address] Monocytes/100 WBC (Bld) 9.0 % Normal [facility] Comment on above: Performed By: #### T S3C #### [facility] [address] [place] [address] Neutrophils (Bld) [#/Vol] 5.8 10*3/uL Normal 1.4-6.5 [facility] Comment on above: Performed By: #### T S3C #### [facility] [address] [place] [address] Neutrophils/100 WBC (Bld) 71.6 % Normal [facility] Comment on above: Performed By: #### T S3C #### [facility] [address] [place] [address] Platelets (Bld) [#/Vol] 169 10*3/uL Normal 130-400 [facility] Comment on above: Performed By: #### T S3C #### [facility] [address] [place] [address] RBC (Bld) [#/Vol] 3.39 10*6/uL Low 4.70-6.10 [facility] Comment on above: Performed By: #### T S3C #### [facility] [address] [place] [address] WBC (Bld) [#/Vol] 8.1 10*3/uL Normal 4.8-10.8 [facility] Comment on above: Performed By: #### T S3C #### [facility] [address] [place] [address] CBC auto differentialon 03-20 Basophils (Bld) [#/Vol] 0.1 10*3/uL 0 - 0.2 K/uL [place] Basophils/100 WBC (Bld) 0.7 % [place] Eosinophils (Bld) [#/Vol] 0.5 10*3/uL 0 - 0.7 K/uL [place] Eosinophils/100 WBC (Bld) 5.9 % [place] Erythrocyte distribution width (RBC) [Ratio] 12.6 % 11.5 - 14.5 % [place] Hematocrit (Bld) [Volume fraction] 31.5 % Low 42 - 52 % [place] Hemoglobin (Bld) [Mass/Vol] 10.6 g/dL Low 14 - 18 g/dL [place] Interpretation and review of laboratory results Abnormal [place] Lymphocytes (Bld) [#/Vol] 1.0 10*3/uL 1 - 4.8 K/uL [place] Lymphocytes/100 WBC (Bld) 12.8 % [place] MCH (RBC) [Entitic mass] 31.3 pg 27 - 31.3 pg [place] MCHC (RBC) [Mass/Vol] 33.8 % 33 - 37 % [place] MCV (RBC) [Entitic vol] 92.8 fL 80 - 100 fL [place] Monocytes (Bld) [#/Vol] 0.7 10*3/uL 0.2 - 0.8 K/uL [place] Monocytes/100 WBC (Bld) 9.0 % [place] Neutrophils Absolute 5.8 K/uL 1.4 - 6.5 K/uL [place] Neutrophils/100 WBC (Bld) 71.6 % [place] Platelets (Bld) [#/Vol] 169 10*3/uL 130 - 400 K/uL [place] RBC (Bld) [#/Vol] 3.39 10*6/uL Low [place] WBC (Bld) [#/Vol] 8.1 10*3/uL 4.8 - 10.8 K/uL [place] Lactic Acidon 04-09-2019 Lactate [Moles/Vol] 1.8 mmol/L Normal 0.5-2.2 [place] Comment on above: Performed By: #### P GLU #### [facility] [address] [place] [address] Lactate [Moles/Vol] 1.6 mmol/L Normal 0.5-2.2 [facility] Comment on above: Performed By: #### T S3C #### [facility] [address] [place] [address] Lactate [Moles/Vol] 1.4 mmol/L Normal 0.5-2.2 [facility] Comment on above: Performed By: #### T S3C #### [facility] [address] [place] [address] Lactic acid, plasmaon 2018 Lactate [Moles/Vol] 1.6 mmol/L 0.5 - 2. 2 mmol/L [place] Lactate [Moles/Vol] 1.4 mmol/L 0.5 - 2. 2 mmol/L [place] POCT Glucoseon 04-09-2019 Glucose [Mass/Vol] 379 mg/dL Critically high 60-115 M [facility] Comment on above: Performed By: #### P GLU #### [facility] [address] [place] [address] POC [facility]: Performed By: #### P GLU #### [facility] [address] [place] [address] Glucose [Mass/Vol] 379 mg/dL High 60 - 115 mg/dl [place] Interpretation and review of laboratory results Abnormal [place] Performed on ACCU-CHEK [place] Glucose [Mass/Vol] 329 mg/dL Critically high 60-115 M [facility] Comment on above: Performed By: #### P GLU #### [facility] [address] [facility] [place] [address] POC [facility] Comment on above: Performed By: #### P GLU #### [facility] [address] [place] [address] Glucose [Mass/Vol] 329 mg/dL High 60 - 115 mg/dl [place] Interpretation and review of laboratory results Abnormal [place] Performed on ACCU-CHEK [place] Glucose [Mass/Vol] 318 mg/dL Critically high 60-115 [facility] Comment on above: Performed By: #### P GLU #### [facility] [address] [place] [address] POC Performed on [facility] Comment on above: Performed By: #### P GLU #### [facility] [address] [place] [address] Glucose [Mass/Vol] 318 mg/dL High 60 - 115 mg/dl [place] Interpretation and review of laboratory results Abnormal [facility] [place] Performed on ACCU-CHEK [place] PROTIME-INRon 04-09-2019 INR Coag (PPP) [Relative time] 1.1 {INR} [place] Comment on above: Warfarin Therapy INR Therapeutic: 2.0-3.0 With Mechanical Valve: >2.5 Low-intensity Therapeutic Range: 1.5-2.0 Mod-intensity Therapeutic Range: 2.0-3.0 High-intensity Therapeutic Range: 2.5-3.5 HIgh-intensity Therapeutic Range: 3.0-4.0 Common Critical/Alarm Value: 5.0 Common Upper Limit Reported: 10.0 Effective 11/26/2018: Please note methodology and/or reference ranges have changed. PT Coag (PPP) [Time] 14.4 s [place] Comment on above: Effective 11/26/18 Please note methodology and/or reference ranges have changed. Procalcitoninon 04-09-2019 Procalcitonin 0.23 ng/mL Critically high 0.00-0.15 [facility] Comment on above: Result Comment: Refe [...] failure. Performed By: #### T S3C #### [facility] [address] [place] [address] Interpretation and review of laboratory results Abnormal [place] Procalcitonin 0.23 ng/mL High 0 - 0.15 ng/mL [place] Comment on above: Reference Range: Adults: [...] Coag (PPP) [Relative time] 1.1 {INR} Normal [facility] Comment on above: Result Comment: Warf brian Therapy INR Therapeutic: 2.0-3.0 With Mechanical Valve: >2.5 Low-intensity Therapeutic Range: 1.5-2.0 Mod-intensity Therapeutic Range: 2.0-3.0 High-intensity Therapeutic Range: 2.5-3.5 HIgh-intensity Therapeutic Range: 3.0-4.0 Common Critical/Alarm Value: 5.0 Common Upper Limit Reported: 10.0 Effective 11/26/2018: Please note methodology and/or reference ranges have changed. Performed By: #### P GLU #### [facility] [address] [place] [address] PT Coag (PPP) [Time] 14.4 s Normal 12.3-14.9 [facility] Comment on above: Result Comment: Effe ctive 11/26/18 Please note methodology and/or reference ranges have changed. Performed By: #### P GLU #### [facility] [address] [place] [address] Urine Cultureon 04-09-2019 Bacteria identified Cx Nom (U) No growth 24 hours [place], [place] OR DERED BY: JOSE DAVID DAMIAN SOURCE: Urine Clean Catch COLLECTED: 04/07/19 18:30 ANTIBIOTICS AT JIMENA.: RECEIVED : 04/07/19 21:27 [place] BILIRUBIN TOTAL DIRECT & IND IRECTon 04-08-2019 Bilirubin Ql (U) 2.7 mg/dL High 0.2 - 0.7 mg/dL [place] Bilirubin, Indirect 2 mg/dL High 0 - 0.6 mg/dL [place] Bilirubin.direct [Mass/Vol] 0.7 mg/dL High 0 - 0.4 mg/dL [place] Interpretation and review of laboratory results Abnormal [place] Basic Metabolic Panel Reflex Mgon 04-08-2019 Anion gap [Moles/Vol] 9 mmol/L Normal 9-15 [facility] Comment on above: Performed By: #### A 1C #### [facility] [address] [place] [address] Calcium [Mass/Vol] 8.0 mg/dL Low 8.5-9.9 [facility] Comment on above: Performed By: #### A 1C #### [facility] [address] [place] [address] Chloride [Moles/Vol] 99 mmol/L Normal 95-107 [facility] Comment on above: Performed By: #### A 1C #### [facility] [address] [place] [address] CO2 [Moles/Vol] 23 mmol/L Normal 20-31 [facility] Comment on above: Performed By: #### A 1C #### [facility] [address] [place] [address] Creatinine [Mass/Vol] 1.77 mg/dL Critically high 0.70-1.20 [facility] Comment on above: Performed By: #### A 1C #### [facility] [address] [place] [address] GFR/1.73 sq M predicted among blacks MDRD (S/P/Bld) [Vol rate/Area] 46.4 mL/min/{1.73_m2} Low >60 [facility] Comment on above: Result Comment: >60 mL/min/1.73m2 EGFR, calc. for ages 18 and older using the MDRD formula (not corrected for weight), is valid for stable renal function. Performed By: #### A 1C #### [facility] [address] [place] [address] GFR/1.73 sq M.predicted MDRD (S/P/Bld) [Vol rate/Area] 38.4 mL/min/{1.73_m2} Low >60 [facility] Comment on above: Result Comment: >60 mL/min/1.73m2 EGFR, calc. for ages 18 and older using the MDRD formula (not corrected for weight), is valid for stable renal function. Performed By: #### A 1C #### [facility] [address] [place] [address] Glucose [Mass/Vol] 219 mg/dL Critically high 70-99 M [facility] Comment on above: Performed By: #### A 1C #### [facility] [address] [place] [address] Potassium reflex Mg 4.8 mEq/L Normal 3.4-4.9 [facility] Comment on above: Performed By: #### A 1C #### [facility] [address] [place] [address] Sodium [Moles/Vol] 131 mmol/L Low 135-144 [facility] Comment on above: Performed By: #### A 1C #### [facility] [address] [place] [address] Urea nitrogen [Mass/Vol] 18 mg/dL Normal 8-23 [facility] Comment on above: Performed By: #### A 1C #### [facility] [address] [place] [address] Basic Metabolic Panel w/ Ref anthony to MGon 04-08-2019 Anion gap [Moles/Vol] 9 mmol/L [place] Calcium [Mass/Vol] 8.0 mg/dL Low 8.5 - 9.9 mg/dL [place] Chloride [Moles/Vol] 99 mmol/L [place] CO2 [Moles/Vol] 23 mmol/L [place] Creatinine [Mass/Vol] 1.77 mg/dL High 0.7 - 1.2 mg/dL [place] GFR 46.4 Low >60 [place] Comment on above: >60 mL/min/1.73m2 EG FR, calc. for ages 18 and older using the MDRD formula (not corrected for weight), is valid for stable renal function. GFR Non- 38.4 Low >60 [place] Comment on above: >60 mL/min/1.73m2 EG FR, calc. for ages 18 and older using the MDRD formula (not corrected for weight), is valid for stable renal function. Glucose [Mass/Vol] 219 mg/dL High 70 - 99 mg/dL [place] Potassium [Moles/Vol] 4.8 mmol/L [place] Sodium [Moles/Vol] 131 mmol/L [place] Urea nitrogen [Mass/Vol] 18 mg/dL 8 - 23 mg/dL [place] Bilirubin Total, Direct, and Indirecton 04-08-2019 Bilirubin [Mass/Vol] 2.7 mg/dL Critically high 0.2-0.7 [facility] Comment on above: Performed By: #### B MP #### [facility] [address] [place] [address] Bilirubin Indirect 2.0 mg/dL Critically high 0.0-0.6 M [facility] Comment on above: Performed By: #### B MP #### [facility] [address] [place] [address] Bilirubin.direct [Mass/Vol] 0.7 mg/dL Critically high 0.0-0.4 [facility] Comment on above: Performed By: #### B MP #### [facility] [address] [place] [address] CBC With Platelet and Differ entialon 04-08-2019 Basophils (Bld) [#/Vol] 0.1 10*3/uL Normal 0.0-0.2 [facility] Comment on above: Performed By: #### B MP #### [facility] [address] [place] [address] Basophils/100 WBC (Bld) 0.7 % Normal [facility] Comment on above: Performed By: #### B MP #### [facility] [address] [place] [address] Eosinophils (Bld) [#/Vol] 0.4 10*3/uL Normal 0.0-0.7 [facility] Comment on above: Performed By: #### B MP #### [facility] [address] [place] [address] Eosinophils/100 WBC (Bld) 3.5 % Normal [facility] Comment on above: Performed By: #### B MP #### [facility] [address] [place] [address] Erythrocyte distribution width (RBC) [Ratio] 12.7 % Normal 11.5-14.5 [facility] Comment on above: Performed By: #### B MP #### [facility] [address] [place] [address] Hematocrit (Bld) [Volume fraction] 34.0 % Low 42.0-52.0 [facility] Comment on above: Performed By: #### B MP #### [facility] [address] [place] [address] Hemoglobin (Bld) [Mass/Vol] 11.2 g/dL Low 14.0-18.0 [facility] Comment on above: Performed By: #### B MP #### [facility] [address] [place] [address] Lymphocytes (Bld) [#/Vol] 1.6 10*3/uL Normal 1.0-4.8 [facility] Comment on above: Performed By: #### B MP #### [facility] [address] [place] [address] Lymphocytes/100 WBC (Bld) 13.9 % Normal [facility] Comment on above: Performed By: #### B MP #### [facility] [address] [place] [address] MCH (RBC) [Entitic mass] 30.8 pg Normal 27.0-31.3 [facility] Comment on above: Performed By: #### B MP #### [facility] [address] [place] [address] MCHC (RBC) [Mass/Vol] 32.9 % Low 33.0-37.0 [facility] Comment on above: Performed By: #### B MP #### [facility] [address] [place] [address] MCV (RBC) [Entitic vol] 93.7 fL Normal 80.0-100.0 [facility] Comment on above: Performed By: #### B MP #### [facility] [address] [place] [address] Monocytes (Bld) [#/Vol] 1.1 10*3/uL Critically high 0.2-0.8 [facility] Comment on above: Performed By: #### B MP #### [facility] [address] [place] [address] Monocytes/100 WBC (Bld) 9.6 % Normal [facility] Comment on above: Performed By: #### B MP #### [facility] [address] [place] [address] Neutrophils (Bld) [#/Vol] 8.2 10*3/uL Critically high 1.4-6.5 [facility] Comment on above: Performed By: #### B MP #### [facility] [address] [place] [address] Neutrophils/100 WBC (Bld) 72.3 % Normal [facility] Comment on above: Performed By: #### B MP #### [facility] [address] [place] [address] Platelets (Bld) [#/Vol] 153 10*3/uL Normal 130-400 [facility] Comment on above: Performed By: #### B MP #### [facility] [address] [place] [address] RBC (Bld) [#/Vol] 3.63 10*6/uL Low 4.70-6.10 [facility] Comment on above: Performed By: #### B MP #### [facility] [address] [place] [address] WBC (Bld) [#/Vol] 11.4 10*3/uL Critically high 4.8-10.8 [facility] Comment on above: Performed By: #### B MP #### [facility] [address] [place] [address] CBC auto differentialon 03-20 Basophils (Bld) [#/Vol] 0.1 10*3/uL 0 - 0.2 K/uL [facility] [place] Basophils/100 WBC (Bld) 0.7 % [facility], [place] Eosinophils (Bld) [#/Vol] 0.4 10*3/uL 0 - 0.7 K/uL [facility] [place] Eosinophils/100 WBC (Bld) 3.5 % [facility] [place] Erythrocyte distribution width (RBC) [Ratio] 12.7 % 11.5 - 14.5 % [place] Hematocrit (Bld) [Volume fraction] 34.0 % Low 42 - 52 % [place] Hemoglobin (Bld) [Mass/Vol] 11.2 g/dL Low 14 - 18 g/dL [place] Interpretation and review of laboratory results Abnormal [place] Lymphocytes (Bld) [#/Vol] 1.6 10*3/uL 1 - 4.8 K/uL [place] Lymphocytes/100 WBC (Bld) 13.9 % [place] MCH (RBC) [Entitic mass] 30.8 pg 27 - 31.3 pg [place] MCHC (RBC) [Mass/Vol] 32.9 % Low 33 - 37 % [place] MCV (RBC) [Entitic vol] 93.7 fL 80 - 100 fL [place] Monocytes (Bld) [#/Vol] 1.1 10*3/uL High 0.2 - 0.8 K/uL [place] Monocytes/100 WBC (Bld) 9.6 % [place] Neutrophils Absolute 8.2 K/uL High 1.4 - 6.5 K/uL [place] Neutrophils/100 WBC (Bld) 72.3 % [place] Platelets (Bld) [#/Vol] 153 10*3/uL 130 - 400 K/uL [place] RBC (Bld) [#/Vol] 3.63 10*6/uL Low [place] WBC (Bld) [#/Vol] 11.4 10*3/uL High 4.8 - 10.8 K/uL [place] Culture, Respiratoryon 04-08 Culture, Respiratory ORDERED BY: SHANIKA JENNINGS SOURCE: Sputum Expectorated Mouth COLLECTED: 04/08/19 05:06 ANTIBIOTICS AT JIMENA.: RECEIVED : 04/08/19 05:06 Gram Stain Direct FINAL 04/08/19 08:03 Many WBC's Rare epithelial cells Few Budding yeast Culture, Respiratory FINAL 04/10/19 11:39 Usual respiratory rachel with Rare growth Yeast No further workup Normal [facility] Comment on above: Performed By: #### A 1C #### [facility] [address] [place] [address] Hepatic function panelon Albumin [Mass/Vol] 2.8 g/dL Low 3.5 - 4.6 g/dL [place] ALP [Catalytic activity/Vol] 42 U/L 35 - 104 U/L [place] ALT [Catalytic activity/Vol] 28 U/L 0 - 41 U/L [place] AST [Catalytic activity/Vol] 17 U/L 0 - 40 U/L [place] Bilirubin Ql (U) 2.0 mg/dL High 0.2 - 0.7 mg/dL [place] Bilirubin, Indirect 1.4 mg/dL High 0 - 0.6 mg/dL [place] Bilirubin.direct [Mass/Vol] 0.6 mg/dL High 0 - 0.4 mg/dL [place] Protein [Mass/Vol] 5.4 g/dL Low 6.3 - 8 g/dL [place], [place] Influenza A and Bon 04-08-20 Influenza A by PCR Negative Normal [facility] Comment on above: Result Comment: Effe ctive 01/07/19 Please note methodology and/or reference ranges have changed. Performed By: #### B MP #### [facility] [address] [place] [address] Influenza B by PCR Negative Normal [facility] Comment on above: Result Comment: Effe ctive 01/07/19 Please note methodology and/or reference ranges have changed. Performed By: #### B MP #### [facility] [address] [place] [id number] Lactate, Sepsison 04-08-2019 Lactate, Sepsis 2.1 mmol/L Critically high 0.5-1.9 [facility] Comment on above: Performed By: #### A 1C #### [facility] [address] [place] [address] Interpretation and review of laboratory results Abnormal [place] Lactic Acid, Sepsis 2.1 mmol/L High 0.5 - 1. 9 mmol/L [place] Lactate, Sepsis 4.0 mmol/L Critically high 0.5-1.9 [facility] Comment on above: Order Comment: CALL Ruiz LC2W tel. [phone],Lactic Acid results called to and read back by Shaq Castillo RN, 04/08/2019 01:55,by CHARLEY Performed By: #### B MP #### [facility] [address] [facility] [address] Interpretation and review of laboratory results Abnormal [place] Lactic Acid, Sepsis 4.0 mmol/L Critically high 0.5 - 1.9 mmol/L [place] CALL [facility] LC2W tel. [phone], Lactic Acid results called to and read back by Shaq Castillo RN, 04/08/2019 01:55, by CHARLEY [place] Lactic Acidon 04-08-2019 Lactate [Moles/Vol] 2.7 mmol/L Critically high 0.5-2.2 [place] Comment on above: Performed By: #### T S3C #### [facility] [address] [place] [address] Lactate [Moles/Vol] 1.6 mmol/L Normal 0.5-2.2 [facility] Comment on above: Performed By: #### A 1C #### [facility] [address] [place] [address] Lactic acid, plasmaon 2018 Lactate [Moles/Vol] 1.6 mmol/L 0.5 - 2. 2 mmol/L [place] Liver Panelon 04-08-2019 Bilirubin Indirect 1.4 mg/dL Critically high 0.0-0.6 M [facility] Comment on above: Performed By: #### A 1C #### [facility] [address] [place] [address] Albumin [Mass/Vol] 2.8 g/dL Low 3.5-4.6 [facility] Comment on above: Performed By: #### A 1C #### [facility] [address] [place] [address] ALP [Catalytic activity/Vol] 42 U/L Normal 35-104 [facility] Comment on above: Performed By: #### A 1C #### [facility] [address] [place] [address] ALT [Catalytic activity/Vol] 28 U/L Normal 0-41 [facility] Comment on above: Performed By: #### A 1C #### [facility] [address] [place] [address] AST [Catalytic activity/Vol] 17 U/L Normal 0-40 [facility] Comment on above: Performed By: #### A 1C #### [facility] [address] [place] [address] Bilirubin [Mass/Vol] 2.0 mg/dL Critically high 0.2-0.7 [facility] Comment on above: Performed By: #### A 1C #### [facility] [address] [place] [address] Bilirubin.direct [Mass/Vol] 0.6 mg/dL Critically high 0.0-0.4 [facility] Comment on above: Performed By: #### A 1C #### [facility] [address] [place] [address] Protein [Mass/Vol] 5.4 g/dL Low 6.3-8.0 [facility] Comment on above: Performed By: #### A 1C #### [facility] [address] [place] [address] MRI LUMBAR SPINE W WO CONTRA STon 04-08-2019 Phillip, Chpo Incoming R adiant Results From Casual Steps/Pacs - 04/08/2019 1:24 PM EST Patient : [...] hematopoietic hyperplasia, leukemia, lymphoma or metastatic disease. [place] 1. Postcontrast enha ncement involving the [...] hematopoietic hyperplasia, leukemia, lymphoma or metastatic disease. [place], [place] Patient 8 : 1950 Age: 68 [...] the superficial subcutaneous fatty tissues also identified. [place] Otheron 04-08-2019 Interpretation and review of laboratory results Abnormal [place] Interpretation and review of laboratory results Abnormal [place] POCT Glucoseon 04-08-2019 Glucose [Mass/Vol] 294 mg/dL Critically high 60-115 M [facility] Comment on above: Performed By: #### T S3C #### [facility] [address] [place] [address] POC Performed on ACCU-CHEK Normal [facility] Comment on above: Performed By: #### T S3C #### [facility] [address] [place] [address] Glucose [Mass/Vol] 294 mg/dL High 60 - 115 mg/dl [facility], [place] Performed on ACCU-CHEK [facility], [place] Glucose [Mass/Vol] 301 mg/dL Critically high 60-115 M [facility] Comment on above: Performed By: #### T S3C #### [facility] [address] [place] [address] POC Performed on ACCU-CHEK Normal [facility] Comment on above: Performed By: #### T S3C #### [facility] [address] [place] [address] Glucose [Mass/Vol] 301 mg/dL High 60 - 115 mg/dl [place] Interpretation and review of laboratory results Abnormal [facility], [place] Performed on ACCU-CHEK [facility], [place] Glucose [Mass/Vol] 210 mg/dL Critically high 60-115 [facility] Comment on above: Performed By: #### A 1C #### [facility] [address] [place] [address] POC Performed on ACCU-CHEK Normal [facility] Comment on above: Performed By: #### A 1C #### [facility] [address] [place] [address] Glucose [Mass/Vol] 210 mg/dL High 60 - 115 mg/dl [facility], [place] Interpretation and review of laboratory results Abnormal [facility], [place] Performed on ACCU-CHEK [facility], [place] Glucose [Mass/Vol] 214 mg/dL Critically high 60-115 M [facility] Comment on above: Performed By: #### A 1C #### [facility] [address] [place] [address] POC Performed on ACCU-CHEK Normal [facility] Comment on above: Performed By: #### A 1C #### [facility] [address] [place] [address] Glucose [Mass/Vol] 214 mg/dL High 60 - 115 mg/dl [place] Interpretation and review of laboratory results Abnormal [place] Performed on ACCU-CHEK [place] POCT Venouson 04-08-2019 Creatinine [Mass/Vol] 1.7 mg/dL Critically high 0.8-1.3 [facility] Comment on above: Performed By: #### B MP #### [facility] [address] [place] [address] GFR/1.73 sq M predicted among blacks MDRD (S/P/Bld) [Vol rate/Area] 49 mL/min/{1.73_m2} Abnormal >60 [facility] Comment on above: Result Comment: >60 mL/min/1.73m2 EGFR, calc. for ages 18 and older using the MDRD formula (not corrected for weight), is valid for stable renal function. Performed By: #### B MP #### [facility] [address] [place] [address] GFR/1.73 sq M.predicted MDRD (S/P/Bld) [Vol rate/Area] 40 mL/min/{1.73_m2} Abnormal >60 [facility] Comment on above: Result Comment: >60 mL/min/1.73m2 EGFR, calc. for ages 18 and older using the MDRD formula (not corrected for weight), is valid for stable renal function. Performed By: #### B MP #### [facility] [address] [place] [address] Glucose [Mass/Vol] 233 mg/dL Critically high 60-115 M [facility] Comment on above: Performed By: #### B MP #### [facility] [address] [place] [address] Hematocrit (Bld) [Volume fraction] 33 % Low 41-53 [facility] Comment on above: Performed By: #### B MP #### [facility] [address] [place] [address] Hemoglobin (Bld) [Mass/Vol] 11.2 g/dL Low 13.5-17.5 [facility] Comment on above: Performed By: #### B MP #### [facility] [address] [place] [address] Oxygen saturation in Blood 42 % Normal Not Establ [facility] Comment on above: Performed By: #### B MP #### [facility] [address] [place] [address] POC Calciuim Ionized 1.05 mmol/L Low 1.12-1.32 [facility] Comment on above: Performed By: #### B MP #### [facility] [address] [place] [address] POC Cl 101 mEq/L Normal 99-110 [facility] Comment on above: Performed By: #### B MP #### [facility] [address] [place] [address] POC FIO2 28.000 Normal [facility] Comment on above: Performed By: #### B MP #### [facility] [address] [place] [address] POC K 4.4 mEq/L Normal 3.5-5.1 [facility] Comment on above: Performed By: #### B MP #### [facility] [address] [place] [address] POC Lactic Acid 3.67 mmol/L Critically high 0.40-2.00 [facility] Comment on above: Performed By: #### B MP #### [facility] [address] [place] [address] POC Na 133 mEq/L Low 136-145 [facility] Comment on above: Performed By: #### B MP #### [facility] [address] [place] [address] POC Performed on SEE BELOW Normal [facility] Comment on above: Result Comment: Perf ormed on POC Sample Type: Venous Oxygen Delivery System: Cannula Performed By: #### B MP #### [facility] [address] [place] [address] POC Sample Type ROMERO Normal [facility] Comment on above: Performed By: #### B MP #### [facility] [address] [place] [address] POC Venous Base Excess -6 Low -3-3 [facility] Comment on above: Performed By: #### B MP #### [facility] [address] [place] [address] POC Venous HCO3 20.7 mmol/L Low 23.0-29.0 [facility] Comment on above: Performed By: #### B MP #### [facility] [address] [place] [address] POC Venous PCO2 43.9 mm Hg Normal 40.0-50.0 [facility] Comment on above: Performed By: #### B MP #### [facility] [address] [place] [address] POC Venous pH 7.282 Low 7.350-7.45 [facility] Comment on above: Performed By: #### B MP #### [facility] [address] [place] [address] POC Venous PO2 27 mm Hg Normal [facility] Comment on above: Performed By: #### B MP #### [facility] [address] [place] [address] POC Venous Total CO2 22 mmol/L Normal [facility] Comment on above: Performed By: #### B MP #### [facility] [address] [place] [address] Prothrombin Timeon 9 INR Coag (PPP) [Relative time] 1.2 {INR} Normal [facility] Comment on above: Result Comment: Warf brian Therapy INR Therapeutic: 2.0-3.0 With Mechanical Valve: >2.5 Low-intensity Therapeutic Range: 1.5-2.0 Mod-intensity Therapeutic Range: 2.0-3.0 High-intensity Therapeutic Range: 2.5-3.5 HIgh-intensity Therapeutic Range: 3.0-4.0 Common Critical/Alarm Value: 5.0 Common Upper Limit Reported: 10.0 Effective 11/26/2018: Please note methodology and/or reference ranges have changed. Performed By: #### A 1C #### [facility] [address] [facility] [address] PT Coag (PPP) [Time] 15.4 s Critically high 12.3-14.9 [facility] Comment on above: Result Comment: Effe ctive 11/26/18 Please note methodology and/or reference ranges have changed. Performed By: #### A 1C #### [facility] [address] [facility] [address] Protime-INRon 04-08-2019 INR Coag (PPP) [Relative time] 1.2 {INR} [facility] [place] Comment on above: Warfarin Therapy INR Therapeutic: 2.0-3.0 With Mechanical Valve: >2.5 Low-intensity Therapeutic Range: 1.5-2.0 Mod-intensity Therapeutic Range: 2.0-3.0 High-intensity Therapeutic Range: 2.5-3.5 HIgh-intensity Therapeutic Range: 3.0-4.0 Common Critical/Alarm Value: 5.0 Common Upper Limit Reported: 10.0 Effective 11/26/2018: Please note methodology and/or reference ranges have changed. PT Coag (PPP) [Time] 15.4 s [place] Comment on above: Effective 11/26/18 Please note methodology and/or reference ranges have changed. XR CHEST PORTABLEon 04-08-20 Patient 8 : 1950 Age: 68 years Gender: Male Order Date: 04/07/2019 6:30 PM. Exam: XR CHEST PORTABLE Number of Views: 1 Indication: Fever Comparison: None. Findings: Cardiomediastinal silhouette is within normal limits. Lungs are clear without evidence of infiltrate/pneumonia, pneumothorax or pleural effusion [place] Woody Fisher adiant Results From [employer] - 04/08/2019 7:15 AM EST Patient : 1950 Age: 68 years Gender: Male Order Date: 04/07/2019 6:30 PM. Exam: XR CHEST PORTABLE Number of Views: 1 Indication: Fever Comparison: None. Findings: Cardiomediastinal silhouette is within normal limits. Lungs are clear without evidence of infiltrate/pneumonia, pneumothorax or pleural effusion IMPRESSION: Impression: No radiographic evidence of acute cardiopulmonary disease [place] Impression: No radio graphic evidence of acute cardiopulmonary disease [place] APTTon 04-07-2019 aPTT Coag (Bld) [Time] 36.7 s [place] Comment on above: Effective 12/03/2018: Please note methodology and/or reference ranges have changed. aPTT - Heparin Therapeutic Range: 74.0 - 106 seconds Brain Natriuretic Peptideon 04-07-2019 Natriuretic peptide B (Bld) [Mass/Vol] 597 pg/mL [place] Comment on above: NT-pro BNP ACUTE [...] pulmonary emboli, pulmonary hypertension, pericarditis Reference: Alondra Macias, et al. NT-proBNP testing for diagnosis and short-term prognosis in acute destabilized HF: an international pooled analysis of 1256 patients. Heart Journal. 2006;27:330-337 CBC Auto Differentialon 03-20 Basophils (Bld) [#/Vol] 0.1 10*3/uL 0 - 0.2 K/uL [place] Basophils/100 WBC (Bld) 1.0 % [place] Eosinophils (Bld) [#/Vol] 0.4 10*3/uL 0 - 0.7 K/uL [place] Eosinophils/100 WBC (Bld) 3.1 % [place] Erythrocyte distribution width (RBC) [Ratio] 12.9 % 11.5 - 14.5 % [place] Hematocrit (Bld) [Volume fraction] 39.9 % Low 42 - 52 % [place] Hemoglobin (Bld) [Mass/Vol] 13.5 g/dL Low 14 - 18 g/dL [place] Interpretation and review of laboratory results Abnormal [place] Lymphocytes (Bld) [#/Vol] 1.6 10*3/uL 1 - 4.8 K/uL [place] Lymphocytes/100 WBC (Bld) 13.4 % [place] MCH (RBC) [Entitic mass] 30.7 pg 27 - 31.3 pg [place] MCHC (RBC) [Mass/Vol] 33.8 % 33 - 37 % [place] MCV (RBC) [Entitic vol] 90.7 fL 80 - 100 fL [place] Monocytes (Bld) [#/Vol] 0.9 10*3/uL High 0.2 - 0.8 K/uL [place] Monocytes/100 WBC (Bld) 7.9 % [place] Neutrophils Absolute 8.9 K/uL High 1.4 - 6.5 K/uL [place] Neutrophils/100 WBC (Bld) 74.6 % [place] Platelets (Bld) [#/Vol] 178 10*3/uL 130 - 400 K/uL [place] RBC (Bld) [#/Vol] 4.40 10*6/uL Low [place] WBC (Bld) [#/Vol] 11.9 10*3/uL High 4.8 - 10.8 K/uL [place] CBC With Platelet and Differ entialon 04-07-2019 Basophils (Bld) [#/Vol] 0.1 10*3/uL Normal 0.0-0.2 [facility] Comment on above: Performed By: #### C BCWD #### [facility] [address] [place] [address] Basophils/100 WBC (Bld) 1.0 % Normal [facility] Comment on above: Performed By: #### C BCWD #### [facility] [address] [place] [address] Eosinophils (Bld) [#/Vol] 0.4 10*3/uL Normal 0.0-0.7 [facility] Comment on above: Performed By: #### C BCWD #### [facility] [address] [place] [address] Eosinophils/100 WBC (Bld) 3.1 % Normal [facility] Comment on above: Performed By: #### C BCWD #### [facility] [address] [place] [address] Erythrocyte distribution width (RBC) [Ratio] 12.9 % Normal 11.5-14.5 [facility] Comment on above: Performed By: #### C BCWD #### [facility] [address] [place] [address] Hematocrit (Bld) [Volume fraction] 39.9 % Low 42.0-52.0 [facility] Comment on above: Performed By: #### C BCWD #### [facility] [address] [place] [address] Hemoglobin (Bld) [Mass/Vol] 13.5 g/dL Low 14.0-18.0 [facility] Comment on above: Performed By: #### C BCWD #### [facility] [address] [place] [address] Lymphocytes (Bld) [#/Vol] 1.6 10*3/uL Normal 1.0-4.8 [facility] Comment on above: Performed By: #### C BCWD #### [facility] [address] [place] [address] Lymphocytes/100 WBC (Bld) 13.4 % Normal [facility] Comment on above: Performed By: #### C BCWD #### [facility] [address] [place] [address] MCH (RBC) [Entitic mass] 30.7 pg Normal 27.0-31.3 [facility] Comment on above: Performed By: #### C BCWD #### [facility] [address] [place] [address] MCHC (RBC) [Mass/Vol] 33.8 % Normal 33.0-37.0 [facility] Comment on above: Performed By: #### C BCWD #### [facility] [address] [place] [address] MCV (RBC) [Entitic vol] 90.7 fL Normal 80.0-100.0 [facility] Comment on above: Performed By: #### C BCWD #### [facility] [address] [place] [address] Monocytes (Bld) [#/Vol] 0.9 10*3/uL Critically high 0.2-0.8 [facility] Comment on above: Performed By: #### C BCWD #### [facility] [address] [place] [address] Monocytes/100 WBC (Bld) 7.9 % Normal [facility] Comment on above: Performed By: #### C BCWD #### [facility] [address] [place] [address] Neutrophils (Bld) [#/Vol] 8.9 10*3/uL Critically high 1.4-6.5 [facility] Comment on above: Performed By: #### C BCWD #### [facility] [address] [place] [address] Neutrophils/100 WBC (Bld) 74.6 % Normal [facility] Comment on above: Performed By: #### C BCWD #### [facility] [address] [place] [address] Platelets (Bld) [#/Vol] 178 10*3/uL Normal 130-400 [facility] Comment on above: Performed By: #### C BCWD #### [facility] [address] [place] [address] RBC (Bld) [#/Vol] 4.40 10*6/uL Low 4.70-6.10 [facility] Comment on above: Performed By: #### C BCWD #### [facility] [address] [place] [address] WBC (Bld) [#/Vol] 11.9 10*3/uL Critically high 4.8-10.8 [facility] Comment on above: Performed By: #### C BCWD #### [facility] [address] [place] [address] CKon 04-07-2019 Total CK 255 U/L High 0 - 190 U/L [place] CKMB & RELATIVE PERCENTon CK.MB [Mass/Vol] 0.7 % 0 - 3.5 % [place] CK.MB [Mass/Vol] 1.8 ng/mL 0 - 6.7 ng/mL [place] CKMB and Relative Percenton 04-07-2019 CK.MB [Mass/Vol] 0.7 % Normal 0.0-3.5 [facility] Comment on above: Performed By: #### B MP #### [facility] [address] [place] [address] CK.MB [Mass/Vol] 1.8 ng/mL Normal 0.0-6.7 [facility] Comment on above: Performed By: #### B MP #### [facility] [address] [place] [address] Comprehensive Metabolic Pane mani 04-07-2019 Albumin [Mass/Vol] 3.7 g/dL Normal 3.5-4.6 [facility] Comment on above: Performed By: #### P T #### [facility] [address] [place] [address] ALP [Catalytic activity/Vol] 52 U/L Normal 35-104 [facility] Comment on above: Performed By: #### P T #### [facility] [address] [place] [address] ALT [Catalytic activity/Vol] 41 U/L Normal 0-41 [facility] Comment on above: Performed By: #### P T #### [facility] [address] [place] [address] Anion gap [Moles/Vol] 12 mmol/L Normal 9-15 [facility] Comment on above: Performed By: #### P T #### [facility] [address] [place] [address] AST [Catalytic activity/Vol] 27 U/L Normal 0-40 [facility] Comment on above: Performed By: #### P T #### [facility] [address] [place] [address] Bilirubin [Mass/Vol] 2.6 mg/dL Critically high 0.2-0.7 [facility] Comment on above: Performed By: #### P T #### [facility] [address] [place] [address] Calcium [Mass/Vol] 8.9 mg/dL Normal 8.5-9.9 [facility] Comment on above: Performed By: #### P T #### [facility] [address] [place] [address] Chloride [Moles/Vol] 93 mmol/L Low 95-107 [facility] Comment on above: Performed By: #### P T #### [facility] [address] [place] [address] CO2 [Moles/Vol] 23 mmol/L Normal 20-31 [facility] Comment on above: Performed By: #### P T #### [facility] [address] [place] [address] Creatinine [Mass/Vol] 1.97 mg/dL Critically high 0.70-1.20 [facility] Comment on above: Performed By: #### P T #### [facility] [address] [place] [address] GFR/1.73 sq M predicted among blacks MDRD (S/P/Bld) [Vol rate/Area] 41.0 mL/min/{1.73_m2} Low >60 [facility] Comment on above: Result Comment: >60 mL/min/1.73m2 EGFR, calc. for ages 18 and older using the MDRD formula (not corrected for weight), is valid for stable renal function. Performed By: #### P T #### [facility] [address] [place] [address] GFR/1.73 sq M.predicted MDRD (S/P/Bld) [Vol rate/Area] 33.9 mL/min/{1.73_m2} Low >60 [facility] Comment on above: Result Comment: >60 mL/min/1.73m2 EGFR, calc. for ages 18 and older using the MDRD formula (not corrected for weight), is valid for stable renal function. Performed By: #### P T #### [facility] [address] [place] [address] Globulin (S) [Mass/Vol] 3.0 g/dL Normal 2.3-3.5 [facility] Comment on above: Performed By: #### P T #### [facility] [address] [place] [address] Glucose [Mass/Vol] 281 mg/dL Critically high 70-99 [facility] Comment on above: Performed By: #### P T #### [facility] [address] [place] [address] Potassium [Moles/Vol] 5.9 mmol/L Critically high 3.4-4.9 [facility] Comment on above: Performed By: #### P T #### [facility] [address] [place] [address] Protein [Mass/Vol] 6.7 g/dL Normal 6.3-8.0 [facility] Comment on above: Performed By: #### P T #### [facility] [address] [place] [address] Sodium [Moles/Vol] 128 mmol/L Low 135-144 [facility] Comment on above: Performed By: #### P T #### [facility] [address] [place] [address] Urea nitrogen [Mass/Vol] 20 mg/dL Normal 8-23 [facility] Comment on above: Performed By: #### P T #### [facility] [address] [place] [address] Albumin [Mass/Vol] 3.7 g/dL 3.5 - 4.6 g/dL [place] ALP [Catalytic activity/Vol] 52 U/L 35 - 104 U/L [place] ALT [Catalytic activity/Vol] 41 U/L 0 - 41 U/L [place] Anion gap [Moles/Vol] 12 mmol/L [place] AST [Catalytic activity/Vol] 27 U/L 0 - 40 U/L [place] Bilirubin Ql (U) 2.6 mg/dL High 0.2 - 0.7 mg/dL [place] Calcium [Mass/Vol] 8.9 mg/dL 8.5 - 9.9 mg/dL [place] Chloride [Moles/Vol] 93 mmol/L Low [place] CO2 [Moles/Vol] 23 mmol/L [place] Creatinine [Mass/Vol] 1.97 mg/dL High 0.7 - 1.2 mg/dL [place] GFR 41 Low >60 [place] Comment on above: >60 mL/min/1.73m2 EG FR, calc. for ages 18 and older using the MDRD formula (not corrected for weight), is valid for stable renal function. GFR Non- 33.9 Low >60 [place] Comment on above: >60 mL/min/1.73m2 EG FR, calc. for ages 18 and older using the MDRD formula (not corrected for weight), is valid for stable renal function. Globulin (S) [Mass/Vol] 3 g/dL 2.3 - 3.5 g/dL [place] Glucose [Mass/Vol] 281 mg/dL High 70 - 99 mg/dL [place] Potassium [Moles/Vol] 5.9 mmol/L High [place] Protein [Mass/Vol] 6.7 g/dL 6.3 - 8 g/dL [place] Sodium [Moles/Vol] 128 mmol/L Low [place] Urea nitrogen [Mass/Vol] 20 mg/dL 8 - 23 mg/dL [place] Creatine Kinaseon 04-07-2019 CK [Catalytic activity/Vol] 255 U/L Critically high 0-190 [facility] Comment on above: Performed By: #### P T #### [facility] [address] [place] [address] Culture, Blood 2on 9 Culture, Blood 2 OR DERED BY: JOSE DAVID DAMIAN SOURCE: Blood COLLECTED: 04/07/19 18:56 ANTIBIOTICS AT JIMENA.: RECEIVED : 04/07/19 19:04 Culture, Blood 2 FINAL 04/12/19 20:15 No growth after [address] [facility] Comment on above: Performed By: #### T S3C #### [facility] [address] [place] [address] Culture, Urineon 04-07-2019 Culture, Urine OR DERED BY: JOSE DAVID DAMIAN SOURCE: Urine Clean Catch COLLECTED: 04/07/19 18:30 ANTIBIOTICS AT JIMENA.: RECEIVED : 04/07/19 21:27 Culture, Urine FINAL 04/09/19 10:13 No growth 24 hours Normal [facility] Comment on above: Performed By: #### P GLU #### [facility] [address] [place] [address] Lactate, Sepsison 04-07-2019 Lactate, Sepsis 3.4 mmol/L Critically high 0.5-1.9 [facility] Comment on above: Order Comment: CALL Ruiz LCED tel. [phone],Lactic acid result called to and read back by ROSA Damian, 04/07/2019 19:56,by VIANEY Performed By: #### B MP #### [facility] [address] [place] [address] Interpretation and review of laboratory results Abnormal [place] Lactic Acid, Sepsis 3.4 mmol/L Critically high 0.5 - 1.9 mmol/L [place] CALL [facility] tel. [phone], Lactic acid result called to and read back by ROSA Damian, 04/07/2019 19:56, by VIANEY [place] Lactic Acidon 04-07-2019 Lactate [Moles/Vol] 2.9 mmol/L Critically high 0.5-2.2 [facility] Comment on above: Performed By: #### B MP #### [facility] [address] [facility] [address] Lactic Acid, Plasmaon 2018 Interpretation and review of laboratory results Abnormal [place] Lactate [Moles/Vol] 2.9 mmol/L High 0.5 - 2. 2 mmol/L [place] Lipaseon 04-07-2019 Lipase [Catalytic activity/Vol] 25 U/L Normal 12-95 [facility] Comment on above: Performed By: #### P T #### [facility] [address] [facility] [address] Lipase [Catalytic activity/Vol] 25 U/L 12 - 95 U/L [place] MRI LUMBAR SPINE W WO CONTRA [...] Fabio Bautista MD 04/08/19 Final result Normal [facility] Magnesiumon 04-07-2019 Magnesium [Mass/Vol] 1.7 mg/dL Normal 1.7-2.4 [facility] Comment on above: Performed By: #### P T #### [facility] [address] [facility] [address] Magnesium [Mass/Vol] 1.7 mg/dL 1.7 - 2.4 mg/dL [place] Microscopic Urinalysison Bacteria, UA Negative /HPF [place] Epi Cells 0-2 [place] Hyaline Casts, UA 5-10 [place] RBC (U) [#/Vol] 0-2 [place] WBC, UA 0-2 [place] Otheron 04-07-2019 Interpretation and review of laboratory results Abnormal [place] Interpretation and review of laboratory results Abnormal [place] POCT Venouson 04-07-2019 Base Excess, Romero -6 Low [place] Calcium [Mass/Vol] 1.05 mmol/L Low 1.12 - 1. 32 mmol/L [place] Chloride [Moles/Vol] 101 mmol/L [place] Creatinine [Mass/Vol] 1.7 mg/dL High 0.8 - 1.3 mg/dL [place] FIO2 28 [place] GFR 49 Abnormal >60 [place] Comment on above: >60 mL/min/1.73m2 EG FR, calc. for ages 18 and older using the MDRD formula (not corrected for weight), is valid for stable renal function. GFR Non- 40 Abnormal >60 [place] Comment on above: >60 mL/min/1.73m2 EG FR, calc. for ages 18 and older using the MDRD formula (not corrected for weight), is valid for stable renal function. Glucose [Mass/Vol] 233 mg/dL High 60 - 115 mg/dl [place] HCO3, Venous 20.7 mmol/L Low 23 - 29 mmol/L [place] Hematocrit (Bld) [Volume fraction] 33 % Low 41 - 53 % [place] Hemoglobin (Bld) [Mass/Vol] 11.2 g/dL [place] Interpretation and review of laboratory results Abnormal [place] Lactate [Moles/Vol] 3.67 mmol/L High 0.4 - 2 mmol/L [place] Oxygen saturation in Blood 42 % Not Established [place] pCO2, Romreo 43.9 [place] Performed on SEE BELOW [place] Comment on above: Performed on POC Sample Type: Venous Oxygen Delivery System: Cannula pH, Romero 7.282 Low [place] pO2, Romero 27 Not Established mm Hg [place] Potassium [Moles/Vol] 4.4 mmol/L [place] Sample Type ROMERO [place] Sodium [Moles/Vol] 133 mmol/L [place] TC02 (Calc), Romero 22 mmol/L Not Established [place] Partial Thromboplastin Timeo n 04-07-2019 aPTT Coag (Bld) [Time] 36.7 s Normal 24.4-36.8 [facility] Comment on above: Result Comment: Effe ctive 12/03/2018: Please note methodology and/or reference ranges have changed. aPTT - Heparin Therapeutic Range: 74.0 - 106 seconds Performed By: #### P T #### [facility] [address] [place] [id number] [phone] Procalcitoninon 04-07-2019 Procalcitonin 0.55 ng/mL Critically high 0.00-0.15 [facility] Comment on above: Result Comment: Refe [...] failure. Performed By: #### P T #### [facility] [address] [place] [address] Procalcitonin 0.55 ng/mL High 0 - 0.15 ng/mL [place] Comment on above: Reference Range: Adults: [...] Coag (PPP) [Relative time] 1.2 {INR} Normal [facility] Comment on above: Result Comment: Warf brian Therapy INR Therapeutic: 2.0-3.0 With Mechanical Valve: >2.5 Low-intensity Therapeutic Range: 1.5-2.0 Mod-intensity Therapeutic Range: 2.0-3.0 High-intensity Therapeutic Range: 2.5-3.5 HIgh-intensity Therapeutic Range: 3.0-4.0 Common Critical/Alarm Value: 5.0 Common Upper Limit Reported: 10.0 Effective 11/26/2018: Please note methodology and/or reference ranges have changed. Performed By: #### P T #### [facility] [address] [facility] [address] PT Coag (PPP) [Time] 15.7 s Critically high 12.3-14.9 [facility] Comment on above: Result Comment: Effe ctive 11/26/18 Please note methodology and/or reference ranges have changed. Performed By: #### P T #### [facility] [address] [facility] [address] Protime-INRon 04-07-2019 INR Coag (PPP) [Relative time] 1.2 {INR} [facility], [place] Comment on above: Warfarin Therapy INR Therapeutic: 2.0-3.0 With Mechanical Valve: >2.5 Low-intensity Therapeutic Range: 1.5-2.0 Mod-intensity Therapeutic Range: 2.0-3.0 High-intensity Therapeutic Range: 2.5-3.5 HIgh-intensity Therapeutic Range: 3.0-4.0 Common Critical/Alarm Value: 5.0 Common Upper Limit Reported: 10.0 Effective 11/26/2018: Please note methodology and/or reference ranges have changed. Interpretation and review of laboratory results Abnormal [place] PT Coag (PPP) [Time] 15.7 s High [place] Comment on above: Effective 11/26/18 Please note methodology and/or reference ranges have changed. Rapid Influenza A/B Antigens on 04-07-2019 Influenza A by PCR Negative [place] Comment on above: Effective 01/07/19 Please note methodology and/or reference ranges have changed. Influenza B by PCR Negative [place] Comment on above: Effective 01/07/19 Please note methodology and/or reference ranges have changed. TSH w/out Reflexon 9 TSH Qn 4.350 uIU/mL Critically high 0.440-3.86 [facility] Comment on above: Performed By: #### P T #### [facility] [address] [facility] [address] TSH without Reflexon 019 TSH Qn 4.350 m[IU]/L [place] Troponinon 04-07-2019 Troponin I.cardiac [Mass/Vol] ng/mL Normal 0.000-0.01 [facility] Comment on above: Result Comment: Meth odology by Troponin T. Performed By: #### P T #### [facility] [address] [place] [address] Troponin I.cardiac [Mass/Vol] ng/mL 0 - 0.01 ng/mL [place] Comment on above: Methodology by Sunday Muir Urinalysis Reflex to Culture on 04-07-2019 Bilirubin Urine SMALL Abnormal Negative [place] Blood, Urine Negative Negative [place] Clarity, UA Clear Clear [place] Color, UA ORANGE Abnormal Straw/Yellow [place] Glucose, Ur 250 mg/dL Abnormal Negative [place] Interpretation and review of laboratory results Abnormal [place] Ketones Ql (U) TRACE Abnormal Negative mg/dL [place] Leukocyte esterase Test strip Ql (U) Negative Negative [place] Nitrite, Urine Negative Negative [place] pH, UA 5.0 [place] Protein (U) [Mass/Vol] 30 mg/dL Abnormal Negative [place] Specific [place], UA 1.025 [place] Urine Reflex to Culture YES [place] Urobilinogen, Urine 1.0 <2.0 E.U./dL [place] Urinalysis, reflex to cultur fabiola 04-07-2019 Bilirubin Ql (U) SMALL Abnormal Negative [facility] Comment on above: Performed By: #### B MP #### [facility] [address] [place] [address] Clarity (U) Clear Normal Clear [facility] Comment on above: Performed By: #### B MP #### [facility] [address] [place] [address] Color (U) ORANGE Abnormal Straw/[place] [facility] Comment on above: Performed By: #### B MP #### [facility] [address] [place] [address] Glucose Ql (U) 250 mg/dL Abnormal Negative [facility] Comment on above: Performed By: #### B MP #### [facility] [address] [place] [address] Hemoglobin Ql (U) Negative Normal Negative [facility] Comment on above: Performed By: #### B MP #### [facility] [address] [place] [address] Ketones Ql (U) TRACE Abnormal Negative [facility] Comment on above: Performed By: #### B MP #### [facility] [address] [place] [address] Leukocyte esterase Test strip Ql (U) Negative Normal Negative [facility] Comment on above: Performed By: #### B MP #### [facility] [address] [place] [address] Nitrite Ql (U) Negative Normal Negative [facility] Comment on above: Performed By: #### B MP #### [facility] [address] [place] [address] pH (U) 5.0 [pH] Normal 5.0-9.0 [facility] Comment on above: Performed By: #### B MP #### [facility] [address] [place] [address] Protein Ql (U) 30 mg/dL Abnormal Negative [facility] Comment on above: Performed By: #### B MP #### [facility] [address] [place] [address] Specific gravity (U) [Rel density] 1.025 Normal 1.005-1.03 [facility] Comment on above: Performed By: #### B MP #### [facility] [address] [place] [address] Urine Reflexed to Culture YES Normal [facility] Comment on above: Performed By: #### B MP #### [facility] [address] [place] [address] Urobilinogen Qn (U) 1.0 {Yared'U}/dL Normal < 2.0 [facility] Comment on above: Performed By: #### B MP #### [facility] [address] [place] [address] Urine Microscopicon 11-20-20 19 Bacteria LM.HPF (Urine sed) [#/Area] Negative Normal [facility] Comment on above: Performed By: #### B MP #### [facility] [address] [place] [address] RBC (U) [#/Vol] 0-2 Normal 0-5 [facility] Comment on above: Performed By: #### B MP #### [facility] [address] [place] [address] Urine Epithelial Cells Auto 0-2 Normal 0-5 [facility] Comment on above: Performed By: #### B MP #### [facility] [address] [place] [address] Urine Hyaline Casts Auto 5-10 Normal 0-5 [facility] Comment on above: Performed By: #### B MP #### [facility] [address] [place] [address] Urine WBC Auto 0-2 Normal 0-5 [facility] Comment on above: Performed By: #### B MP #### [facility] [address] [place] [address] XR CHEST PORTABLEon 04-07-20 19 XR CHEST [...] Fabio Bautista MD 04/08/19 Final result Normal [facility] proBNPon 04-07-2019 Natriuretic peptide B (Bld) [Mass/Vol] 597 pg/mL Normal [facility] Comment on above: Result Comment: NT-p [...] 2006;27:330-337 Performed By: #### P T #### [facility] [address] [place] [address] FL LESS THAN 1 HOURon 2018 FL LESS THAN 1 HOUR Patient 8 : 1950 Age: 68 years [...] Fabio Bautista MD 04/06/19 Final result Normal [facility] POCT Glucoseon 04-05-2019 Glucose [Mass/Vol] 164 mg/dL Critically high 60-115 M [facility] Comment on above: Performed By: #### P GLU #### [facility] [address] [place] [address] POC Performed on ACCU-CHEK [facility] Comment on above: Performed By: #### P GLU #### [facility] [address] [place] [address] Glucose [Mass/Vol] 164 mg/dL High 60 - 115 mg/dl [place] Interpretation and review of laboratory results Abnormal [place] Performed on ACCU-CHEK [place] Glucose [Mass/Vol] 189 mg/dL Critically high 60-115 M [facility] Comment on above: Performed By: #### P GLU #### [facility] [address] [place] [address] POC Performed on ACCU-CHEK [facility] Comment on above: Performed By: #### P GLU #### [facility] [address] [place] [address] Glucose [Mass/Vol] 189 mg/dL High 60 - 115 mg/dl [place] Interpretation and review of laboratory results Abnormal [place] Performed on ACCU-CHEK [place] Prothrombin Timeon 9 INR Coag (PPP) [Relative time] 1.0 {INR} Normal [facility] Comment on above: Result Comment: Warf brian Therapy INR Therapeutic: 2.0-3.0 With Mechanical Valve: >2.5 Low-intensity Therapeutic Range: 1.5-2.0 Mod-intensity Therapeutic Range: 2.0-3.0 High-intensity Therapeutic Range: 2.5-3.5 HIgh-intensity Therapeutic Range: 3.0-4.0 Common Critical/Alarm Value: 5.0 Common Upper Limit Reported: 10.0 Effective 11/26/2018: Please note methodology and/or reference ranges have changed. Performed By: #### P T #### [facility] [address] [facility] [address] PT Coag (PPP) [Time] 13.4 s Normal 12.3-14.9 [facility] Comment on above: Result Comment: Effe ctive 11/26/18 Please note methodology and/or reference ranges have changed. Performed By: #### P T #### [facility] [address] [facility] [address] Protime-INRon 04-05-2019 INR Coag (PPP) [Relative time] 1.0 {INR} [place] Comment on above: Warfarin Therapy INR Therapeutic: 2.0-3.0 With Mechanical Valve: >2.5 Low-intensity Therapeutic Range: 1.5-2.0 Mod-intensity Therapeutic Range: 2.0-3.0 High-intensity Therapeutic Range: 2.5-3.5 HIgh-intensity Therapeutic Range: 3.0-4.0 Common Critical/Alarm Value: 5.0 Common Upper Limit Reported: 10.0 Effective 11/26/2018: Please note methodology and/or reference ranges have changed. PT Coag (PPP) [Time] 13.4 s [place] Comment on above: Effective 11/26/18 Please note methodology and/or reference ranges have changed. EKG 12 Leadon 04-01-2019 Atrial Rate 76 BPM [facility], [place] P [place] 47 degrees [facility] [place], [place] P-R Interval [address] [facility] Q-T Interval 378 ms [facility] [place] QRS Duration 80 ms [facility], [place] QTc Calculation (Bazett) 425 ms [facility], [place] R [place] -[address] [facility] T [place] 22 degrees [facility] [place] Ventricular Rate 76 BPM [facility], [place] Normal sinus rhythm Cannot rule out Inferior infarct , age undetermined Abnormal ECG No previous ECGs available Confirmed by Juan Vitael ([id number]) on 04/01/2019 7:17:49 AM [facility], [place] Phillip, Chpo Incoming R esults From [place] - 04/01/2019 7:18 AM EST Normal sinus rhythm Cannot rule out Inferior infarct , age undetermined Abnormal ECG No previous ECGs available Confirmed by Juna Vitale ([id number]) on 04/01/2019 7:17:49 AM [facility], [place] Basic Metabolic Panelon 03-19 Calcium [Mass/Vol] 9.0 mg/dL Normal 8.5-9.9 [facility] Comment on above: Performed By: #### B MP #### [facility] [address] [place] [address] Chloride [Moles/Vol] 98 mmol/L Normal 95-107 [facility] Comment on above: Performed By: #### B MP #### [facility] [address] [place] [address] CO2 [Moles/Vol] 25 mmol/L Normal 20-31 [facility] Comment on above: Performed By: #### B MP #### [facility] [address] [place] [address] Creatinine [Mass/Vol] 1.72 mg/dL Critically high 0.70-1.20 [facility] Comment on above: Performed By: #### B MP #### [facility] [address] [place] [address] GFR/1.73 sq M predicted among blacks MDRD (S/P/Bld) [Vol rate/Area] 48.0 mL/min/{1.73_m2} Low >60 [facility] Comment on above: Result Comment: >60 mL/min/1.73m2 EGFR, calc. for ages 18 and older using the MDRD formula (not corrected for weight), is valid for stable renal function. Performed By: #### B MP #### [facility] [address] [place] [address] GFR/1.73 sq M.predicted MDRD (S/P/Bld) [Vol rate/Area] 39.7 mL/min/{1.73_m2} Low >60 [facility] Comment on above: Result Comment: >60 mL/min/1.73m2 EGFR, calc. for ages 18 and older using the MDRD formula (not corrected for weight), is valid for stable renal function. Performed By: #### B MP #### [facility] [address] [place] [address] Glucose [Mass/Vol] 367 mg/dL Critically high 70-99 M [facility] Comment on above: Performed By: #### B MP #### [facility] [address] [place] [address] Potassium [Moles/Vol] 4.5 mmol/L Normal 3.4-4.9 [facility] Comment on above: Performed By: #### B MP #### [facility] [address] [place] [address] Sodium [Moles/Vol] 136 mmol/L Normal 135-144 [facility] Comment on above: Performed By: #### B MP #### [facility] [address] [place] [address] Urea nitrogen [Mass/Vol] 23 mg/dL Normal 8-23 [facility] Comment on above: Performed By: #### B MP #### [facility] [address] [place] [address] Anion gap [Moles/Vol] 13 mmol/L Normal 9-15 [facility] Comment on above: Performed By: #### B #### [facility] [address] [place] [id number] Anion gap [Moles/Vol] 13 mmol/L [place] Calcium [Mass/Vol] 9.0 mg/dL 8.5 - 9.9 mg/dL [place] Chloride [Moles/Vol] 98 mmol/L [place] CO2 [Moles/Vol] 25 mmol/L [place] Creatinine [Mass/Vol] 1.72 mg/dL High 0.7 - 1.2 mg/dL [place] GFR 48 Low >60 [place] Comment on above: >60 mL/min/1.73m2 EG FR, calc. for ages 18 and older using the MDRD formula (not corrected for weight), is valid for stable renal function. GFR Non- 39.7 Low >60 [place] Comment on above: >60 mL/min/1.73m2 EG FR, calc. for ages 18 and older using the MDRD formula (not corrected for weight), is valid for stable renal function. Glucose [Mass/Vol] 367 mg/dL High 70 - 99 mg/dL [place] Interpretation and review of laboratory results Abnormal [place] Potassium [Moles/Vol] 4.5 mmol/L [place] Sodium [Moles/Vol] 136 mmol/L [place] Urea nitrogen [Mass/Vol] 23 mg/dL 8 - 23 mg/dL [place] CBCon 03-30-2019 Erythrocyte distribution width (RBC) [Ratio] 12.7 % 11.5 - 14.5 % [place] Hematocrit (Bld) [Volume fraction] 42.4 % 42 - 52 % [place] Hemoglobin (Bld) [Mass/Vol] 14.3 g/dL 14 - 18 g/dL [place] Interpretation and review of laboratory results Abnormal [place] MCH (RBC) [Entitic mass] 30.8 pg 27 - 31.3 pg [place] MCHC (RBC) [Mass/Vol] 33.7 % 33 - 37 % [place] MCV (RBC) [Entitic vol] 91.3 fL 80 - 100 fL [place] Platelets (Bld) [#/Vol] 213 10*3/uL 130 - 400 K/uL [place] RBC (Bld) [#/Vol] 4.65 10*6/uL Low [place] WBC (Bld) [#/Vol] 8.2 10*3/uL 4.8 - 10.8 K/uL [place] CBC With Platelet No Differe ntialon 03-30-2019 Erythrocyte distribution width (RBC) [Ratio] 12.7 % Normal 11.5-14.5 [facility] Comment on above: Performed By: #### C BCND #### [facility] [address] [facility] [address] Hematocrit (Bld) [Volume fraction] 42.4 % Normal 42.0-52.0 [facility] Comment on above: Performed By: #### C BCND #### [facility] [address] [place] [address] Hemoglobin (Bld) [Mass/Vol] 14.3 g/dL Normal 14.0-18.0 [facility] Comment on above: Performed By: #### C BCND #### [facility] [address] [place] [address] MCH (RBC) [Entitic mass] 30.8 pg Normal 27.0-31.3 [facility] Comment on above: Performed By: #### C BCND #### [facility] [address] [place] [address] MCHC (RBC) [Mass/Vol] 33.7 % Normal 33.0-37.0 [facility] Comment on above: Performed By: #### C BCND #### [facility] [address] [place] [address] MCV (RBC) [Entitic vol] 91.3 fL Normal 80.0-100.0 [facility] Comment on above: Performed By: #### C BCND #### [facility] [address] [place] [address] Platelets (Bld) [#/Vol] 213 10*3/uL Normal 130-400 [facility] Comment on above: Performed By: #### C BCND #### [facility] [address] [place] [address] RBC (Bld) [#/Vol] 4.65 10*6/uL Low 4.70-6.10 [facility] Comment on above: Performed By: #### C BCND #### [facility] [address] [facility] [address] WBC (Bld) [#/Vol] 8.2 10*3/uL Normal 4.8-10.8 [facility] Comment on above: Performed By: #### C BCND #### [facility] [address] [facility] [facility] [address] Hemoglobin A1Con 03-30-2019 HbA1c (Bld) [Mass fraction] 9.8 % High 4.8 - 5.9 % [place] Interpretation and review of laboratory results Abnormal [place] Hemoglobin A1con 03-30-2019 HbA1c (Bld) [Mass fraction] 9.8 % Critically high 4.8-5.9 [facility] Comment on above: Performed By: #### A 1C #### [facility] [address] [facility] [facility] [address] Prothrombin Timeon 201 9 INR Coag (PPP) [Relative time] 1.9 {INR} Normal [facility] Comment on above: Result Comment: Warf brian Therapy INR Therapeutic: 2.0-3.0 With Mechanical Valve: >2.5 Low-intensity Therapeutic Range: 1.5-2.0 Mod-intensity Therapeutic Range: 2.0-3.0 High-intensity Therapeutic Range: 2.5-3.5 HIgh-intensity Therapeutic Range: 3.0-4.0 Common Critical/Alarm Value: 5.0 Common Upper Limit Reported: 10.0 Effective 11/26/2018: Please note methodology and/or reference ranges have changed. Performed By: #### P T #### [facility] [address] [place] [address] PT Coag (PPP) [Time] 22.6 s Critically high 12.3-14.9 [facility] Comment on above: Result Comment: Effe ctive 11/26/18 Please note methodology and/or reference ranges have changed. Performed By: #### P T #### [facility] [address] [place] [address] Protime-INRon 03-30-2019 INR Coag (PPP) [Relative time] 1.9 {INR} [place] Comment on above: Warfarin Therapy IN R Therapeutic: 2.0-3.0 With Mechanical Valve: >2.5 Low-intensity Therapeutic Range: 1.5-2.0 Mod-intensity Therapeutic Range: 2.0-3.0 High-intensity Therapeutic Range: 2.5-3.5 HIgh-intensity Therapeutic Range: 3.0-4.0 Common Critical/Alarm Value: 5.0 Common Upper Limit Reported: 10.0 Effective 11/26/2018: Please note methodology and/or reference ranges have changed. Interpretation and review of laboratory results Abnormal [place] PT Coag (PPP) [Time] 22.6 s High [place] Comment on above: Effective 11/26/18 Please note methodology and/or reference ranges have changed. TYPE AND SCREENon 03-30-2019 ABO/Rh Positive [place] Type and Screen Capture 3 sc rn cellon 03-30-2019 Type and Screen Capture 3 scrn cell PATIENT: ABRAHAM Shrestha LOC: [facility] BILL# : [id number] : 1950 SEX: M ORDERED BY: HAYDER Orourke ORDERED : 03/30/2019 12:58 COLLECTED: 03/30/2019 13:32 ORDER : [id number] RECEIVED : 03/30/2019 13:32 TEST NAME RESULT UNITS RANGES ABN FL ST ABORH Capture A POS F Antibody 3 Cell Scrn Captu NEG F Normal [facility] Comment on above: Performed By: #### T S3C #### [facility] [address] [place] [address] CBC AND DIFFERENTIALon 04-08 % AUTOMATED IMMATURE GRAN Canceled Normal [facility] Comment on above: Order Comment: TEST CBC AND DIFFERENTIAL WAS CANCELLED, 04/08/2018 04:30 ?Cancel Reason:Patient Discharged. Result Comment: Perc ent differential counts (%) should be interpreted in the context of the absolute cell counts (cells/L). Performed By: #### C BC ####[id number] [place] [address] % NEUTROPHIL Canceled Normal [facility] Comment on above: Order Comment: TEST CBC AND DIFFERENTIAL WAS CANCELLED, 04/08/2018 04:30 ?Cancel Reason:Patient Discharged. Performed By: #### C BC ####[id number] [place] [address] Basophils/100 WBC Auto (Bld) Canceled Normal [facility] Comment on above: Order Comment: TEST CBC AND DIFFERENTIAL WAS CANCELLED, 04/08/2018 04:30 ?Cancel Reason:Patient Discharged. Performed By: #### C BC ####[id number] [place] [address] DIFFERENTIAL Canceled Normal [facility] Comment on above: Order Comment: TEST CBC AND DIFFERENTIAL WAS CANCELLED, 04/08/2018 04:30 ?Cancel Reason:Patient Discharged. Performed By: #### C BC ####[id number] [place] [address] Eosinophils Auto #/vol (Bld) Canceled Normal [facility] Comment on above: Order Comment: TEST CBC AND DIFFERENTIAL WAS CANCELLED, 04/08/2018 04:30 ?Cancel Reason:Patient Discharged. Performed By: #### C BC ####[id number] [place] [address] Eosinophils/100 WBC Auto (Bld) Canceled Normal [facility] Comment on above: Order Comment: TEST CBC AND DIFFERENTIAL WAS CANCELLED, 04/08/2018 04:30 ?Cancel Reason:Patient Discharged. Performed By: #### C BC ####[id number] [place] [address] Erythrocyte distribution width Auto Ratio (RBC) Canceled Normal [facility] Comment on above: Order Comment: TEST CBC AND DIFFERENTIAL WAS CANCELLED, 04/08/2018 04:30 ?Cancel Reason:Patient Discharged. Performed By: #### C BC ####[id number] [place] [address] Hematocrit Auto Volume Fraction (Bld) Canceled Normal [facility] Comment on above: Order Comment: TEST CBC AND DIFFERENTIAL WAS CANCELLED, 04/08/2018 04:30 ?Cancel Reason:Patient Discharged. Performed By: #### C BC ####[id number] [place] [address] Hemoglobin mass conc (Bld) Canceled Normal [facility] Comment on above: Order Comment: TEST CBC AND DIFFERENTIAL WAS CANCELLED, 04/08/2018 04:30 ?Cancel Reason:Patient Discharged. Performed By: #### C BC ####[id number] [place] [address] Lymphocytes Auto #/vol (Bld) Canceled Normal [facility] Comment on above: Order Comment: TEST CBC AND DIFFERENTIAL WAS CANCELLED, 04/08/2018 04:30 ?Cancel Reason:Patient Discharged. Performed By: #### C BC ####[id number] [place] [address] Lymphocytes/100 WBC Auto (Bld) Canceled Normal [facility] Comment on above: Order Comment: TEST CBC AND DIFFERENTIAL WAS CANCELLED, 04/08/2018 04:30 ?Cancel Reason:Patient Discharged. Performed By: #### C BC ####[id number] [place] [address] MCHC Auto mass conc (RBC) Canceled Normal [facility] Comment on above: Order Comment: TEST CBC AND DIFFERENTIAL WAS CANCELLED, 04/08/2018 04:30 ?Cancel Reason:Patient Discharged. Performed By: #### C BC ####[id number] [place] [address] MCV Auto Entitic volume (RBC) Canceled Normal [facility] Comment on above: Order Comment: TEST CBC AND DIFFERENTIAL WAS CANCELLED, 04/08/2018 04:30 ?Cancel Reason:Patient Discharged. Performed By: #### C BC ####[id number] [place] [address] Monocytes Auto #/vol (Bld) Canceled Normal [facility] Comment on above: Order Comment: TEST CBC AND DIFFERENTIAL WAS CANCELLED, 04/08/2018 04:30 ?Cancel Reason:Patient Discharged. Performed By: #### C BC ####[id number] [place] [address] Neutrophils Auto #/vol (Bld) Canceled Normal [facility] Comment on above: Order Comment: TEST CBC AND DIFFERENTIAL WAS CANCELLED, 04/08/2018 04:30 ?Cancel Reason:Patient Discharged. Performed By: #### C BC ####[id number] [place] [address] Nucleated RBC/100 WBC Ratio (Bld) Canceled Normal [facility] Comment on above: Order Comment: TEST CBC AND DIFFERENTIAL WAS CANCELLED, 04/08/2018 04:30 ?Cancel Reason:Patient Discharged. Performed By: #### C BC ####[id number] [place] [address] Platelets Auto #/vol (Bld) Canceled Normal [facility] Comment on above: Order Comment: TEST CBC AND DIFFERENTIAL WAS CANCELLED, 04/08/2018 04:30 ?Cancel Reason:Patient Discharged. Performed By: #### C BC ####[id number] [place] [address] RBC Auto #/vol (Bld) Canceled Normal [facility] Comment on above: Order Comment: TEST CBC AND DIFFERENTIAL WAS CANCELLED, 04/08/2018 04:30 ?Cancel Reason:Patient Discharged. Performed By: #### C BC ####[id number] [place] [address] WBC Auto #/vol (Bld) Canceled Normal [facility] Comment on above: Order Comment: TEST CBC AND DIFFERENTIAL WAS CANCELLED, 04/08/2018 04:30 ?Cancel Reason:Patient Discharged. Performed By: #### C BC ####[id number] [place] [address] MAGNESIUMon 04-08-2018 Magnesium mass conc Canceled Normal [facility] Comment on above: Order Comment: TEST MAGNESIUM WAS CANCELLED, 04/08/2018 04:30 ?Cancel Reason: PatientDischarged. Performed By: #### C BC ####[id number] [place] [address] PT/INRon 04-08-2018 INR Coag RelTime (PPP) Canceled Normal [facility] Comment on above: Order Comment: TEST PT/INR WAS CANCELLED, 04/08/2018 04:30 ?Cancel Reason: PatientDischarged. Performed By: #### C BC ####[id number] [place] [address] Prothrombin time (PT) Coag time (PPP) Canceled Normal [facility] Comment on above: Order Comment: TEST PT/INR WAS CANCELLED, 04/08/2018 04:30 ?Cancel Reason: PatientDischarged. Result Comment: Note new reference range as of 03/10/2018. Performed By: #### C BC ####[id number] [place] [address] RENAL FUNCTION PANELon 04-08 Albumin mass conc Canceled Normal [facility] Comment on above: Order Comment: TEST RENAL FUNCTION PANEL WAS CANCELLED, 04/08/2018 04:30 ?Cancel Reason:Patient Discharged. Performed By: #### C BC ####[id number] [place] [address] Anion gap 3 molar conc Canceled Normal [facility] Comment on above: Order Comment: TEST RENAL FUNCTION PANEL WAS CANCELLED, 04/08/2018 04:30 ?Cancel Reason:Patient Discharged. Performed By: #### C BC ####[id number] [place] [address] Calcium mass conc Canceled Normal [facility] Comment on above: Order Comment: TEST RENAL FUNCTION PANEL WAS CANCELLED, 04/08/2018 04:30 ?Cancel Reason:Patient Discharged. Performed By: #### C BC ####[id number] [place] [address] Chloride molar conc Canceled Normal [facility] Comment on above: Order Comment: TEST RENAL FUNCTION PANEL WAS CANCELLED, 04/08/2018 04:30 ?Cancel Reason:Patient Discharged. Performed By: #### C BC ####[id number] [place] [address] Creatinine mass conc Canceled Normal [facility] Comment on above: Order Comment: TEST RENAL FUNCTION PANEL WAS CANCELLED, 04/08/2018 04:30 ?Cancel Reason:Patient Discharged. Performed By: #### C BC ####[id number] [place] [address] GFR- AM. Canceled Normal [facility] Comment on above: Order Comment: TEST RENAL FUNCTION PANEL WAS CANCELLED, 04/08/2018 04:30 ?Cancel Reason:Patient Discharged. Result Comment: CALC ULATIONS OF ESTIMATED GFR ARE PERFORMED USING THE MDRD STUDY EQUATION FOR THE IDMS-TRACEABLE CREATININE METHODS. CLIN CHEM 2007;53:766-72 Performed By: #### C BC ####[id number] [place] [address] GFR-NON AM. Canceled Normal [facility] Comment on above: Order Comment: TEST RENAL FUNCTION PANEL WAS CANCELLED, 04/08/2018 04:30 ?Cancel Reason:Patient Discharged. Performed By: #### C BC ####[id number] [place] [address] Glucose mass conc Canceled Normal [facility] Comment on above: Order Comment: TEST RENAL FUNCTION PANEL WAS CANCELLED, 04/08/2018 04:30 ?Cancel Reason:Patient Discharged. Performed By: #### C BC ####[id number] [place] [address] HCO3 molar conc (Bld) Canceled Normal [facility] Comment on above: Order Comment: TEST RENAL FUNCTION PANEL WAS CANCELLED, 04/08/2018 04:30 ?Cancel Reason:Patient Discharged. Performed By: #### C BC ####[id number] [place] [address] Phosphate mass conc Canceled Normal [facility] Comment on above: Order Comment: TEST RENAL FUNCTION PANEL WAS CANCELLED, 04/08/2018 04:30 ?Cancel Reason:Patient Discharged. Result Comment: The performance characteristics of phosphorus testing in heparinized plasma have been validated by the individual laboratory site where testing is performed. Testing on heparinized plasma is not approved by the FDA; however, such approval is not necessary. Performed By: #### C BC ####[id number] [place] [address] Potassium molar conc Canceled Normal [facility] Comment on above: Order Comment: TEST RENAL FUNCTION PANEL WAS CANCELLED, 04/08/2018 04:30 ?Cancel Reason:Patient Discharged. Performed By: #### C BC ####[id number] [place] [address] Sodium molar conc Canceled Normal [facility] Comment on above: Order Comment: TEST RENAL FUNCTION PANEL WAS CANCELLED, 04/08/2018 04:30 ?Cancel Reason:Patient Discharged. Performed By: #### C BC ####[id number] [place] [address] Urea nitrogen mass conc Canceled Normal [facility] Comment on above: Order Comment: TEST RENAL FUNCTION PANEL WAS CANCELLED, 04/08/2018 04:30 ?Cancel Reason:Patient Discharged. Performed By: #### C BC ####[id number] [place] [address] CBCon 04-07-2018 Erythrocyte distribution width Auto Ratio (RBC) 13.1 % Normal 11.5 - 14.5 [facility] Comment on above: Performed By: #### C BC ####[id number] [place] [address] Hematocrit Auto Volume Fraction (Bld) 31.1 % Low 41.0 - 52.0 [facility] Comment on above: Performed By: #### C BC ####[id number] [place] [address] Hemoglobin mass conc (Bld) 10.3 g/dL Low 13.5 - 17.5 [facility] Comment on above: Performed By: #### C BC ####[id number] [place] [address] MCHC Auto mass conc (RBC) 33.1 g/dL Normal 32.0 - 36.0 [facility] Comment on above: Performed By: #### C BC ####[id number] [place] [address] MCV Auto Entitic volume (RBC) 93 fL Normal 80 - 100 [facility] Comment on above: Performed By: #### C BC ####[id number] [place] [address] Nucleated RBC/100 WBC Ratio (Bld) 0.0 /100 WBC Normal 0.0-0.0 [facility] Comment on above: Performed By: #### C BC ####[id number] [place] [address] Platelets Auto #/vol (Bld) 330 10*3/uL Normal 150 - 450 [facility] Comment on above: Performed By: #### C BC ####[id number] [place] [address] RBC Auto #/vol (Bld) 3.34 x10E12/L Low 4.50 - 5.90 [facility] Comment on above: Performed By: #### C BC ####[id number] [place] [address] WBC Auto #/vol (Bld) 11.8 10*3/uL High 4.4 - 11.3 [facility] Comment on above: Performed By: #### C BC ####[id number] [place] [address] Daily Progress Note-Cardiac Surgeryon 04-07-2018 Protein mass [...] feeling well. Objective Data: Objective Information: T [id number]/619 5%Date/Time04/07 11: 11: 11 11 11:00Range(36C - 36.5C ) (67 - 84 ) (16 - 20 ) (105 - 136 )/ (61 - 84 ) (93% -98% ) Pain with Activity reported at 04/07 11:00: 0Pain at Rest reported at 04/07 11:00: 0 Ccqiede01/20 2:51: Weight in kg (Weight (kg)) 107. 2:51: Weight in lbs ((lbs)) 237 ---- Intake and Output -----Mn/Dy/Year TimeIntakeOutputNetNov 2017 6:00 [id number] 2017 10:00 [id number] 2017 2:00 [id number] The Intake and Output Totals for the last 24 hours are:[id number] 258 Physical Exam: Constitutional: lying in bed; NAD, [...] w/o s/s infection Medication: Medications: Continuous Medications ----No continuous medications are active Scheduled Medications ---- 1. Aspirin Enteric Coated: 81 mg Oral [...] Warfarin: 7.5 mg Oral Daily PRN Medications ---- 1. Bisacodyl Rectal: 10 mg Rectal Daily2. Dextrose 50% in Water Injectable: 25 gram(s) IntraVenous Push Every 12Rppkcpk0. Glucagon Injectable: 1 mg IntraMuscular Every 15 [...] 2011, and psoriasis [facility] on 03/18 for CABG eval. Pt[place]ed to [place] with [facility] pressure and dyspnea. He as found to havebilat PEs, was started on Heparin gtt, and transferred to [facility]. He wasfound to have a troponin leak at 2.25. Cardiology was consulted and the patientwas diagnosed with ACS, NSTEMI. He underwent a TTE and cath. He had normal EF,mild AI, and triple vessel CAD so was transferred to [facility] for CABG eval.Pulm consulted for PE workup. 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, insulin gtt;one CT with air leak [...] postop cardiac surgery hypervolemia- replete electrolytes for hypokalemia/hypomagnesemia/h ypophosphatemia asneeded - 04/03 replaced K, 04/04 replaced K and Mg; 04/05 replaced K and Mg,04/07 replaced Mg Renal - admission Cr 1.42, baseline 1.4-1.6; peak postop Cr 1.68- Cr 1.38, [1.28, 1.37, 1.24, 1.3, 1.32, 1.37]- avoid hypotension and nephrotoxics- tolerating diuresis and lauren- daily renal panel Endo - h/o Colbert's disease, DM, hypothyroidism- Appreciate endo recs, now have signed off as of 04/04- hydrocortisone taper ordered as per Endo recs for Colbert's- starting fludrocortisone 4 days per week on 04/06 as per Endo recs forAddison's- adjusted DM regimen as per Endo recs- continue levothyroxine- DM diet, accuchecks, SSI- 04/07 clinical unit educator met with patient to go over discharge instructionsand care Unprovoked bilat PE's preop- Pulm consult evaluated pt preop: surgery delayed as per pulm recs for heparinanticoagulation of appropriate interval; IVC filter placed 03/23- As per Dr Yu:--- Place IVC filter electively before surgery as heparin will need to beinterrupted - can retrieve fliter in 4-6 weeks if patient can take continuousanticoagulation.-- - Consideration of anticoagulation beyond 6 months duration--- [...] discharge today, as INR is therapeutic- plan [facility] coumadin clinic under automotive design layout drafter Dr Pisano- plan home connect lpn and PT Plan of care discussed with Dr. Gaston Signature/Cosignature/Attest ation:Provider/Team Contact Info-Pager Numbercardiac surgery [phone] Electronic Signatures:Alexandra Milligan (PAC) (Signed 07-Apr-2018 14:05)Authored: Service, Subjective Data, Objective Data, Assessment and Plan,Signature/Cosignature/A ttestation Last Updated: 07-Apr-2018 14:05 by Alexandra Milligan (PAC) Normal [facility] GLUCOSE-POCTon 04-07-2018 Glucose mass conc 123 mg/dL High 74 - 99 [facility] Comment on above: Performed By: #### C BC ####[id number] [place] [address] Glucose mass conc 232 mg/dL High 74 - 99 [facility] Comment on above: Performed By: #### C BC ####[id number] [place] [address] HEPARIN ASSAY,UFHon 04-07-20 18 HEPARIN ASSAY,UFH Canceled Normal [facility] Comment on above: Order Comment: TEST HEPARIN ASSAY,UFH WAS CANCELLED, 04/06/2018 04:14 ?Cancel Reason:Discontinued. Result Comment: The therapeutic reference range for UFH may be either 0.3-0.6 IU/mL or 0.3-0.7 IU/mL based on the clinical setting for anticoagulant therapy and the associated nomogram used. For heparin dosing guidelines based on clinical scenario and Heparin Assay results, please refer to local Pharmacy and the [facility] Guidelines for Anticoagulation therapy available on the [facility] intranet at:[email or web address]_ osp[place]_Guidelines_for_Anticoagu.aspx Performed By: #### C BC ####[id number] [place] [address] Order Comment: TEST HEPARIN ASSAY,UFH WAS CANCELLED, 04/07/2018 04:44 ?Cancel Reason:Discontinued. HEPARIN ASSAY,UFH 0.6 IU/mL Normal [facility] Comment on above: Result Comment: The therapeutic reference range for UFH may be either 0.3-0.6 IU/mL or 0.3-0.7 IU/mL based on the clinical setting for anticoagulant therapy and the associated nomogram used. For heparin dosing guidelines based on clinical scenario and Heparin Assay results, please refer to local Pharmacy and the [facility] Guidelines for Anticoagulation therapy available on the [facility] intranet at:[email or web address]/[place]_ osp[place]_Guidelines_for_Anticoagu.aspx Performed By: #### C BC ####[id number] [place] [address] MAGNESIUMon 04-07-2018 Magnesium mass conc 1.85 mg/dL Normal 1.60 - 2.40 [facility] Comment on above: Performed By: #### C BC ####[id number] [place] [address] PT/INRon 04-07-2018 INR Coag RelTime (PPP) 2.0 {INR} High 0.9 - 1.1 [facility] Comment on above: Performed By: #### C BC ####[id number] [place] [address] Prothrombin time (PT) Coag time (PPP) 22.4 s High 9.7 - 12.7 [facility] Comment on above: Result Comment: Note new reference range as of 03/10/2018. Performed By: #### C BC ####[id number] [place] [address] RENAL FUNCTION PANELon 04-07 Albumin mass conc 3.3 g/dL Low 3.4 - 5.0 [facility] Comment on above: Performed By: #### C BC ####[id number] [place] [address] Anion gap 3 molar conc 11 mmol/L Normal [facility] Comment on above: Performed By: #### C BC ####[id number] [place] [address] Calcium mass conc 8.9 mg/dL Normal 8.6 - 10.6 [facility] Comment on above: Performed By: #### C BC ####[id number] [place] [address] Chloride molar conc 100 mmol/L Normal 98 - 107 [facility] Comment on above: Performed By: #### C BC ####[id number] [place] [address] Creatinine mass conc 1.38 mg/dL High 0.50 - 1.30 [facility] Comment on above: Performed By: #### C BC ####[id number] [place] [address] GFR- AM. 62 mL/min/1.73m2 Normal >60 [facility] Comment on above: Result Comment: CALC ULATIONS OF ESTIMATED GFR ARE PERFORMED USING THE MDRD STUDY EQUATION FOR THE IDMS-TRACEABLE CREATININE METHODS. CLIN CHEM 2007;53:766-72 Performed By: #### C BC ####[id number] [place] [address] GFR-NON AM. 51 mL/min/1.73m2 Abnormal >60 [facility] Comment on above: Performed By: #### C BC ####[id number] [place] [address] Glucose mass conc 121 mg/dL High 74 - 99 [facility] Comment on above: Performed By: #### C BC ####[id number] [place] [address] HCO3 molar conc (Bld) 30 mmol/L Normal 21 - 32 [facility] Comment on above: Performed By: #### C BC ####[id number] [place] [address] Phosphate mass conc 4.7 mg/dL Normal 2.5 - 4.9 [facility] Comment on above: Result Comment: The performance characteristics of phosphorus testing in heparinized plasma have been validated by the individual laboratory site where testing is performed. Testing on heparinized plasma is not approved by the FDA; however, such approval is not necessary. Performed By: #### C BC ####[id number] [place] [address] Potassium molar conc 4.2 mmol/L Normal 3.5 - 5.3 [facility] Comment on above: Performed By: #### C BC ####[id number] [place] [address] Sodium molar conc 137 mmol/L Normal 136 - 145 [facility] Comment on above: Performed By: #### C BC ####[id number] [place] [address] Urea nitrogen mass conc 26 mg/dL High 6 - 23 [facility] Comment on above: Performed By: #### C BC ####[id number] [place] [address] CBCon 04-06-2018 Erythrocyte distribution width Auto Ratio (RBC) 13.0 % Normal 11.5 - 14.5 [facility] Comment on above: Performed By: #### C BC ####[id number] [place] [address] Hematocrit Auto Volume Fraction (Bld) 31.7 % Low 41.0 - 52.0 [facility] Comment on above: Performed By: #### C BC ####[id number] [place] [address] Hemoglobin mass conc (Bld) 10.6 g/dL Low 13.5 - 17.5 [facility] Comment on above: Performed By: #### C BC ####[id number] [place] [address] MCHC Auto mass conc (RBC) 33.4 g/dL Normal 32.0 - 36.0 [facility] Comment on above: Performed By: #### C BC ####[id number] [place] [address] MCV Auto Entitic volume (RBC) 92 fL Normal 80 - 100 [facility] Comment on above: Performed By: #### C BC ####[id number] [place] [address] Nucleated RBC/100 WBC Ratio (Bld) 0.0 /100 WBC Normal 0.0-0.0 [facility] Comment on above: Performed By: #### C BC ####[id number] [place] [address] Platelets Auto #/vol (Bld) 304 10*3/uL Normal 150 - 450 [facility] Comment on above: Performed By: #### C BC ####[id number] [place] [address] RBC Auto #/vol (Bld) 3.44 x10E12/L Low 4.50 - 5.90 [facility] Comment on above: Performed By: #### C BC ####[id number] [place] [address] WBC Auto #/vol (Bld) 12.3 10*3/uL High 4.4 - 11.3 [facility] Comment on above: Performed By: #### C BC ####[id number] [place] [address] COAGULATION SCREENon 018 aPTT Coag time (Bld) 105 s Critically high 28 - 38 [facility] Comment on above: Order Comment: APTT CALLED RB TO ASHWIN JIANG , 04/06/2018 05:23 Result Comment: Note new reference range as of 03/10/2018. THE APTT IS NO LONGER USED FOR MONITORING UNFRACTIONATED HEPARIN THERAPY. FOR MONITORING HEPARIN THERAPY, USE THE HEPARIN ASSAY..APTT CALLED RB TO ASHWIN JIANG , 04/06/2018 05:23 Performed By: #### C BC ####[id number] [place] [address] INR Coag RelTime (PPP) 1.5 {INR} High 0.9 - 1.1 [facility] Comment on above: Order Comment: APTT CALLED RB TO ASHWIN JIANG , 04/06/2018 05:23 Performed By: #### C BC ####[id number] [place] [address] Prothrombin time (PT) Coag time (PPP) 16.5 s High 9.7 - 12.7 [facility] Comment on above: Order Comment: APTT CALLED RB TO ASHWIN JIANG , 04/06/2018 05:23 Result Comment: Note new reference range as of 03/10/2018. Performed By: #### C ####[id number] [place] [address] Daily Progress Note-Cardiac Surgeryon 04-06-2018 Protein mass conc Service: Cardiac Iris dane Subjective Data:DON ELKINS is a 67 year old Male who is Hospital Day # 20 and POD #6 for CABGx 3;-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 Overnight Events: Patient had an uneventful night. Objective Data: Objective Information: ---- Intake and Output -----Mn/Dy/Year TimeIntakeOutputNetNov 2017 6:00 [id number] 2017 10:00 [id number] 2017 2:00 [id number] The Intake and Output Totals for the last 24 hours are:[id number] 171 Intake Output Enteral - Oral 120 mL Urine 2725 mL Medicated IV Drips 434 mL T GRHORnL2Pepft30.77899947/739 4%Date/Time04/06 6: 6: 6: 6: 6:55Range(35.9C - 36.6C ) (65 - 77 ) (18 - 20 ) (111 - 132 )/ (67 - 76 ) (92%- 96% ) Ufuvuqh15/19 3:28: Weight in kg (Weight (kg)) 31085/19 3:28: Weight in lbs ((lbs)) 238.3 Physical [...] and behaviorSkin: warm and dryINCISIONS: 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 Heparin 25,000 units/ D5W 250 mL Infusion..: 2000 units/hr IntraVenous Scheduled Medications ----1. Aspirin Enteric Coated: 81 mg Oral Daily2. Atorvastatin: 40 mg Oral Daily3. Citalopram (CELEXA): 20 mg Oral Daily4. Docusate: 100 mg Oral 2 Times a Day5. Fludrocortisone: 0.05 mg Oral 6. Furosemide Injectable: 20 mg IntraVenous Push 2 Times a Day7. Hydrocortisone: 15 mg Oral 8. Hydrocortisone: 10 mg Oral 9. Hydrocortisone: 5 mg Oral 10. Insulin Glargine (Lantus) Injectable: 20 unit(s) SubCutaneous XjJxjmlip00. Insulin Lispro (HumaLOG) Injectable: 6 unit(s) SubCutaneous [...] Warfarin: 7.5 mg Oral Daily PRN Medications ----1. Bisacodyl Rectal: 10 mg Rectal Daily2. Dextrose 50% in Water Injectable: 25 gram(s) IntraVenous Push Every 58Ouqjgvc5. Glucagon Injectable: 1 mg IntraMuscular Every 15 Minutes4. Ondansetron Injectable: 4 mg IntraVenous Push Every 6 Hours5. oxyCODONE Immediate Release: 5 mg Oral Every 4 Hours Recent Lab Results: Results:I have reviewed these laboratory results: Glucose_POCT Trending View [id number] 07:00:00 05-Apr-2018 20:52:00 05-Apr-2018 17:25:00 05-Apr-2018 11:37:00 05-Apr-2018 07:13:00Glucose-PNAX197 H 289 H 222 H 193 H 129 H Coagulation Screen 06-Apr-2018 04:14:00 ResultValueLab Comment: APTT CALLED RB TO ASHWIN RUBIAnastacio , 04/06/2018 05:23Prothrombin Time, Plasma 16.5 HInternational [...] a past medical history of HTN,HLD, T2DM, Colbert's disease, hypothyroidism, COPD, AKASH on CPAP, prostate Spring/p prostatectomy in 2011, and psoriasis [facility] for CABG eval. [facility]ed to [place] [facility] pressure and dyspnea. He as found to havebilat PEs, was started on Heparin gtt, and transferred to [facility]. He wasfound to have a troponin leak at 2.25. Cardiology was consulted and the patientwas diagnosed with ACS, NSTEMI. He underwent a TTE and cath. He had normal EF,mild AI, and triple vessel CAD so was transferred to [facility] for CABG eval.Pulm consulted for PE workup. 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, insulin gtt;one CT with air leak [...] postop cardiac surgery hypervolemia- replete electrolytes for hypokalemia/hypomagnesemia/h ypophosphatemia asneeded - 04/03 replaced K, 04/04 replaced K and Mg; 04/05 replaced K and Mg Renal - admission Cr 1.42, baseline 1.4-1.6; peak postop Cr 1.68- Cr 1.28 [1.37, 1.24, 1.3, 1.32, 1.37]- avoid hypotension and nephrotoxics- tolerating diuresis and lauren- daily renal panel Endo - h/o Colbert's disease, DM, hypothyroidism- Appreciate endo recs, now have signed off as of 04/04- hydrocortisone taper ordered as per Endo recs for Colbert's- starting fludrocortisone 4 days per week on [...] in 4-6 weeks if patient can take continuousanticoagulation.-- - Consideration of anticoagulation beyond 6 months duration--- [...] PT- anticipate discharge when INR therapeutic- plan [facility] coumadin clinic under automotive design layout drafter Dr Pisano- plan home connect lpn and PT- continue to assess discharge needs Signature/Cosignature/Attest ation:Provider/Team Contact Info-Pager Numbercardiac surgery [phone] Electronic Signatures:Mary Munroe (LITHOGRAPH PRESS OPERATOR TINWARE-CUSTOMER SERVICE LEADER) (Signed 06-Apr-2018 18:26)Authored: Service, Subjective Data, Objective Data, Assessment and Plan,Signature/Cosignature/A ttestation Last Updated: 06-Apr-2018 18:26 by Mary Munroe (LITHOGRAPH PRESS OPERATOR TINWARE-CUSTOMER SERVICE LEADER) Normal [facility] GLUCOSE-POCTon 04-06-2018 Glucose mass conc 303 mg/dL High 74 - 99 [facility] Comment on above: Performed By: #### C BC ####[id number] [place] [address] Glucose mass conc 290 mg/dL High 74 - 99 [facility] Comment on above: Performed By: #### C BC ####[id number] [place] [address] Glucose mass conc 268 mg/dL High 74 - 99 [facility] Comment on above: Performed By: #### C BC ####[id number] [place] [address] Glucose mass conc 118 mg/dL High 74 - 99 [facility] Comment on above: Performed By: #### C BC ####[id number] [place] [address] HEPARIN ASSAY,UFHon 04-06-20 18 HEPARIN ASSAY,UFH 0.5 IU/mL Normal [facility] Comment on above: Result Comment: The therapeutic reference range for UFH may be either 0.3-0.6 IU/mL or 0.3-0.7 IU/mL based on the clinical setting for anticoagulant therapy and the associated nomogram used. For heparin dosing guidelines based on clinical scenario and Heparin Assay results, please refer to local Pharmacy and the [facility] Guidelines for Anticoagulation therapy available on the [facility] intranet at:[email or web address]/[email or web address]_ ospitals_Guidelines_for_Anticoagu.aspx Performed By: #### C BC ####[id number] [place] [address] HEPARIN ASSAY,UFH 0.7 IU/mL Normal [facility] Comment on above: Result Comment: The therapeutic reference range for UFH may be either 0.3-0.6 IU/mL or 0.3-0.7 IU/mL based on the clinical setting for anticoagulant therapy and the associated nomogram used. For heparin dosing guidelines based on clinical scenario and Heparin Assay results, please refer to local Pharmacy and [facility] Guidelines for Anticoagulation therapy available on the [facility] intranet at:[email or web address] – [place]Fin [email or web address]/[email or web address]_ ospitals_Guidelines_for_Anticoagu.aspx Performed By: #### C BC ####[id number] [place] [address] HEPARIN ASSAY,UFH Canceled Normal [facility] Comment on above: Order Comment: TEST HEPARIN ASSAY,UFH WAS CANCELLED, 04/06/2018 10:03 NO SPECIMEN RECEIVEDIN LAB. Result Comment: The therapeutic reference range for UFH may be either 0.3-0.6 IU/mL or 0.3-0.7 IU/mL based on the clinical setting for anticoagulant therapy and the associated nomogram used. For heparin dosing guidelines based on clinical scenario and Heparin Assay results, please refer to local Pharmacy and [facility] Guidelines for Anticoagulation therapy available on the [facility] intranet at:[email or web address]/[email or web address]_ ospitals_Guidelines_for_Anticoagu.aspx Performed By: #### C BC ####[id number] [place] [address] HEPARIN ASSAY,UFH Canceled Normal [facility] Comment on above: Order Comment: TEST HEPARIN [...] please refer to local Pharmacy and the [facility] Guidelines for Anticoagulation therapy available on the [facility] intranet at:[email or web address]/Pharmacy/Pages/[place]_ ospitals_Guidelines_for_Anticoagu.aspx Performed By: #### C BC ####[id number] [place] [address] HEPARIN ASSAY,UFH 0.8 IU/mL Normal [facility] Comment on above: Result Comment: The therapeutic reference range for UFH may be either 0.3-0.6 IU/mL or 0.3-0.7 IU/mL based on the clinical setting for anticoagulant therapy and the associated nomogram used. For heparin dosing guidelines based on clinical scenario and Heparin Assay results, please refer to local Pharmacy and [facility] Guidelines for Anticoagulation therapy available on the [facility] intranet at:[email or web address]/Pharmacy/[email or web address]_ ospitals_Guidelines_for_Anticoagu.aspx Performed By: #### C BC ####[id number] [place] [address] MAGNESIUMon 04-06-2018 Magnesium mass conc 2.03 mg/dL Normal 1.60 - 2.40 [facility] Comment on above: Performed By: #### C BC ####[id number] [place] [address] Nutrition Therapy-Noteon Nutrition Therapy-Note Assessment Subjective/Objective:Note Type: Note Note Authored by: Registered Dietitian NutritionistPager Number: [phone] Nutrition Note:The patient is a 67 year [...] 11:27 by Claribel Damon (JASMEET VORA) Normal [facility] PT/INRon 04-06-2018 INR Coag RelTime (PPP) Canceled Normal [facility] Comment on above: Order Comment: TEST PT/INR WAS CANCELLED, 04/06/2018 09:51 NO SPECIMEN RECEIVED IN LAB. Performed By: #### C BC ####[id number] [place] [address] Prothrombin time (PT) Coag time (PPP) Canceled Normal [facility] Comment on above: Order Comment: TEST PT/INR WAS CANCELLED, 04/06/2018 09:51 NO SPECIMEN RECEIVED IN LAB. Result Comment: Note new reference range as of 03/10/2018. Performed By: #### C BC ####[id number] [place] [address] RENAL FUNCTION PANELon 04-06 Albumin mass conc 3.7 g/dL Normal 3.4 - 5.0 [facility] Comment on above: Performed By: #### C BC ####[id number] [place] [address] Anion gap 3 molar conc 13 mmol/L Normal 10 - 20 [facility] Comment on above: Performed By: #### C BC ####[id number] [place] [address] Calcium mass conc 9.0 mg/dL Normal 8.6 - 10.6 [facility] Comment on above: Performed By: #### C BC ####[id number] [place] [address] Chloride molar conc 98 mmol/L Normal 98 - 107 [facility] Comment on above: Performed By: #### C BC ####[id number] [place] [address] Creatinine mass conc 1.28 mg/dL Normal 0.50 - 1.30 [facility] Comment on above: Performed By: #### C BC ####[id number] [place] [address] GFR- AM. 68 mL/min/1.73m2 Normal >60 [facility] Comment on above: Result Comment: CALC ULATIONS OF ESTIMATED GFR ARE PERFORMED USING THE MDRD STUDY EQUATION FOR THE IDMS-TRACEABLE CREATININE METHODS. CLIN CHEM 2007;53:766-72 Performed By: #### C BC ####[id number] [place] [address] GFR-NON AM. 56 mL/min/1.73m2 Abnormal >60 [facility] Comment on above: Performed By: #### C BC ####[id number] [place] [address] Glucose mass conc 105 mg/dL High 74 - 99 [facility] Comment on above: Performed By: #### C BC ####[id number] [place] [address] HCO3 molar conc (Bld) 29 mmol/L Normal 21 - 32 [facility] Comment on above: Performed By: #### C BC ####[id number] [place] [address] Phosphate mass conc 3.8 mg/dL Normal 2.5 - 4.9 [facility] Comment on above: Result Comment: The performance characteristics of phosphorus testing in heparinized plasma have been validated by the individual laboratory site where testing is performed. Testing on heparinized plasma is not approved by the FDA; however, such approval is not necessary. Performed By: #### C BC ####[id number] [place] [address] Potassium molar conc 4.1 mmol/L Normal 3.5 - 5.3 [facility] Comment on above: Performed By: #### C BC ####[id number] [place] [address] Sodium molar conc 136 mmol/L Normal 136 - 145 [facility] Comment on above: Performed By: #### C BC ####[id number] [place] [address] Urea nitrogen mass conc 23 mg/dL Normal 6 - 23 [facility] Comment on above: Performed By: #### C BC ####[id number] [place] [address] CBCon 04-05-2018 Erythrocyte distribution width Auto Ratio (RBC) 12.7 % Normal 11.5 - 14.5 [facility] Comment on above: Performed By: #### C BC ####[id number] [place] [address] Hematocrit Auto Volume Fraction (Bld) 29.5 % Low 41.0 - 52.0 [facility] Comment on above: Performed By: #### C BC ####[id number] [place] [address] Hemoglobin mass conc (Bld) 9.8 g/dL Low 13.5 - 17.5 [facility] Comment on above: Performed By: #### C BC ####[id number] [place] [address] MCHC Auto mass conc (RBC) 33.2 g/dL Normal 32.0 - 36.0 [facility] Comment on above: Performed By: #### C BC ####[id number] [place] [address] MCV Auto Entitic volume (RBC) 91 fL Normal 80 - 100 [facility] Comment on above: Performed By: #### C BC ####[id number] [place] [address] Nucleated RBC/100 WBC Ratio (Bld) 0.0 /100 WBC Normal 0.0-0.0 [facility] Comment on above: Performed By: #### C BC ####[id number] [place] [address] Platelets Auto #/vol (Bld) 249 10*3/uL Normal 150 - 450 [facility] Comment on above: Performed By: #### C BC ####[id number] [place] [address] RBC Auto #/vol (Bld) 3.23 x10E12/L Low 4.50 - 5.90 [facility] Comment on above: Performed By: #### C BC ####[id number] [place] [address] WBC Auto #/vol (Bld) 10.2 10*3/uL Normal 4.4 - 11.3 [facility] Comment on above: Performed By: #### C BC ####[id number] [place] [address] COAGULATION SCREENon 018 aPTT Coag time (Bld) 93 s High 28 - 38 [facility] Comment on above: Result Comment: Note new reference range as of 03/10/2018. THE APTT IS NO LONGER USED FOR MONITORING UNFRACTIONATED HEPARIN THERAPY. FOR MONITORING HEPARIN THERAPY, USE THE HEPARIN ASSAY. Performed By: #### C BC ####[id number] [id number] INR Coag RelTime (PPP) 1.4 {INR} High 0.9 - 1.1 [facility] Comment on above: Performed By: #### C BC ####[id number] [id number] Prothrombin time (PT) Coag time (PPP) 15.1 s High 9.7 - 12.7 [facility] Comment on above: Result Comment: Note new reference range as of 03/10/2018. Performed By: #### C BC ####[id number] [id number] Clinical Event Note-CUT epic ardial wireson 04-05-2018 Clinical Event Note-CUT epicardial wires Event:Topic: CUT epicardial wiresDetails:11:05 Atrial and ventricular wires cut at skin level. Patient instructed tonotify radiology of retained epicardial wires prior to any MRI procedure, andto notify Dr. Gaston'sophie of any visible wires or s/s infection. Provider / Team Contact Information:Provider/Team Contact Info-Pager Number: cardiac surgery [phone] Electronic Signatures:Alexandra Milligan (PAC) (Signed 05-Apr-2018 11:17)Authored: Event, Provider / Team Contact Information Last Updated: 05-Apr-2018 11:17 by Alexandra Milligan (PAC) Normal [facility] Daily Progress Note-Cardiac Surgeryon 04-05-2018 Protein mass [...] complaints overnight Objective Data: Objective Information: T [id number]/699 6%Date/Time04/05 10: 10: 10: 10: 10:56Range(36.3C - 37.5C ) (63 - 75 ) (18 - 20 ) (109 - 131 )/ (64 - 75 ) (93%- 96% )Highest temp of 37.5 C was recorded at 04/04 22:38 Pain with Activity reported at 04/05 8:20: 0Pain at Rest reported at 04/05 8:20: 0 Niypcir40/18 2:00: Weight in kg (Weight (kg)) 109.8106/05 2:00: Weight in lbs ((lbs)) 242.1 ---- Intake and Output -----Mn/Dy/Year TimeIntakeOutputNetD[facility] 2017 6:00 [id number] 2017 10:00 [id number] 2017 2:00 [id number] The Intake and Output Totals for the last 24 hours are:[id number] Physical Exam: Constitutional: lying in bed; NAD, [...] w/o s/s infection Medication: Medications: Continuous Medications ---- 1. Heparin 25,000 units/ D5W 250 mL Infusion..: 2000 units/hr IntraVenous Scheduled Medications ---- 1. Aspirin Enteric Coated: 81 mg Oral [...] Warfarin: 7.5 mg Oral Daily PRN Medications ---- 1. Bisacodyl Rectal: 10 mg Rectal Daily2. Dextrose 50% in Water Injectable: 25 gram(s) IntraVenous Push Every 59Xyfnndk6. Glucagon Injectable: 1 mg IntraMuscular Every 15 [...] psoriasis [facility] for CABG eval. Ptpresented to [facility] with chest pressure and dyspnea. He as found to havebilat PEs, was started on Heparin gtt, and transferred to [facility]. He wasfound to have a troponin leak at 2.25. Cardiology was consulted and the patientwas diagnosed with ACS, NSTEMI. He underwent a TTE and cath. He had normal EF,mild AI, and triple vessel CAD so was transferred to [facility] for CABG eval.Pulm consulted for PE workup. 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, insulin gtt;one CT with air leak [...] postop cardiac surgery hypervolemia- replete electrolytes for hypokalemia/hypomagnesemia/h ypophosphatemia asneeded - 04/03 replaced K, 04/04 replaced K and Mg; 04/05 replaced K and Mg Endo - h/o Colbert's disease, DM, hypothyroidism- Appreciate endo recs, now have signed off as of 04/04- hydrocortisone taper ordered as per Endo recs for Colbert's- starting fludrocortisone 4 days per week on [...] in 4-6 weeks if patient can take continuousanticoagulation.-- - Consideration of anticoagulation beyond 6 months duration--- [...] 2-3 days depending on INR- plan home connect lpn and PT- continue to assess discharge needs Plan of care discussed with Dr. Gaston Signature/Cosignature/Attest ation:Provider/Team Contact Info-Pager Luisa zzmalyt [phone] Electronic Signatures:Alexandra Milligan (PAC) (Signed 05-Apr-2018 15:48)Authored: Service, Subjective Data, Objective Data, Assessment and Plan,Signature/Cosignature/A ttestation Last Updated: 05-Apr-2018 15:48 by Alexandra Milligan (PAC) Normal [facility] GLUCOSE-POCTon 04-05-2018 Glucose mass conc 289 mg/dL High 74 - 99 [facility] Comment on above: Performed By: #### C BC ####[id number] [place] [address] Glucose mass conc 222 mg/dL High 74 - 99 [facility] Comment on above: Performed By: #### C BC ####[id number] [place] [address] Glucose mass conc 193 mg/dL High 74 - 99 [facility] Comment on above: Performed By: #### C BC ####[id number] [place] [address] Glucose mass conc 129 mg/dL High 74 - 99 [facility] Comment on above: Performed By: #### C BC ####[id number] [place] [address] HEPARIN ASSAY,UFHon 04-05-20 HEPARIN ASSAY,UFH 0.7 IU/mL Normal [facility] Comment on above: Result Comment: The therapeutic reference range for UFH may be either 0.3-0.6 IU/mL or 0.3-0.7 IU/mL based on the clinical setting for anticoagulant therapy and the associated nomogram used. For heparin dosing guidelines based on clinical scenario and Heparin Assay results, please refer to local Pharmacy and the [facility] Guidelines for Anticoagulation therapy available on the [facility] intranet at:[email or web address]/[email or web address]_ ospitals_Guidelines_for_Anticoagu.aspx Performed By: #### C BC ####[id number] [place] [address] MAGNESIUMon 04-05-2018 Magnesium mass conc 1.75 mg/dL Normal 1.60 - 2.40 [facility] Comment on above: Performed By: #### C BC ####[id number] [place] [address] RENAL FUNCTION PANELon 04-05 Albumin mass conc 3.3 g/dL Low 3.4 - 5.0 [facility] Comment on above: Performed By: #### C BC ####[id number] [place] [address] Anion gap 3 molar conc 14 mmol/L Normal 10 - 20 [facility] Comment on above: Performed By: #### C BC ####[id number] [place] [address] Calcium mass conc 8.5 mg/dL Low 8.6 - 10.6 [facility] Comment on above: Performed By: #### C BC ####[id number] [place] [address] Chloride molar conc 96 mmol/L Low 98 - 107 [facility] Comment on above: Performed By: #### C BC ####[id number] [place] [address] Creatinine mass conc 1.37 mg/dL High 0.50 - 1.30 [facility] Comment on above: Performed By: #### C BC ####[id number] [place] [address] GFR- AM. 63 mL/min/1.73m2 Normal >60 [facility] Comment on above: Result Comment: CALC ULATIONS OF ESTIMATED GFR ARE PERFORMED USING THE MDRD STUDY EQUATION FOR THE IDMS-TRACEABLE CREATININE METHODS. CLIN CHEM 2007;53:766-72 Performed By: #### C BC ####[id number] [place] [address] GFR-NON AM. 52 mL/min/1.73m2 Abnormal >60 [facility] Comment on above: Performed By: #### C BC ####[id number] [place] [address] Glucose mass conc 200 mg/dL High 74 - 99 [facility] Comment on above: Performed By: #### C BC ####[id number] [place] [address] HCO3 molar conc (Bld) 26 mmol/L Normal 21 - 32 [facility] Comment on above: Performed By: #### C BC ####[id number] [place] [address] Phosphate mass conc 2.9 mg/dL Normal 2.5 - 4.9 [facility] Comment on above: Result Comment: The performance characteristics of phosphorus testing in heparinized plasma have been validated by the individual laboratory site where testing is performed. Testing on heparinized plasma is not approved by the FDA; however, such approval is not necessary. Performed By: #### C BC ####[id number] [place] [address] Potassium molar conc 3.3 mmol/L Low 3.5 - 5.3 [facility] Comment on above: Performed By: #### C BC ####[id number] [place] [address] Sodium molar conc 133 mmol/L Low 136 - 145 [facility] Comment on above: Performed By: #### C BC ####[id number] [place] [address] Urea nitrogen mass conc 23 mg/dL Normal 6 - 23 [facility] Comment on above: Performed By: #### C BC ####[id number] [place] [address] CBCon 04-04-2018 Erythrocyte distribution width Auto Ratio (RBC) Canceled Normal [facility] Comment on above: Order Comment: TEST CBC WAS CANCELLED, 04/04/2018 18:30 ?Cancel Reason: Cancelled. Performed By: #### C BC ####[id number] [place] [address] Hematocrit Auto Volume Fraction (Bld) Canceled Normal [facility] Comment on above: Order Comment: TEST CBC WAS CANCELLED, 04/04/2018 18:30 ?Cancel Reason: Cancelled. Performed By: #### C BC ####[id number] [place] [address] Hemoglobin mass conc (Bld) Canceled Normal [facility] Comment on above: Order Comment: TEST CBC WAS CANCELLED, 04/04/2018 18:30 ?Cancel Reason: Cancelled. Performed By: #### C BC ####[id number] [place] [address] MCHC Auto mass conc (RBC) Canceled Normal [facility] Comment on above: Order Comment: TEST CBC WAS CANCELLED, 04/04/2018 18:30 ?Cancel Reason: Cancelled. Performed By: #### C BC ####[id number] [place] [address] MCV Auto Entitic volume (RBC) Canceled Normal [facility] Comment on above: Order Comment: TEST CBC WAS CANCELLED, 04/04/2018 18:30 ?Cancel Reason: Cancelled. Performed By: #### C BC ####[id number] [place] [address] Nucleated RBC/100 WBC Ratio (Bld) Canceled Normal [facility] Comment on above: Order Comment: TEST CBC WAS CANCELLED, 04/04/2018 18:30 ?Cancel Reason: Cancelled. Performed By: #### C BC ####[id number] [place] [address] Platelets Auto #/vol (Bld) Canceled Normal [facility] Comment on above: Order Comment: TEST CBC WAS CANCELLED, 04/04/2018 18:30 ?Cancel Reason: Cancelled. Performed By: #### C BC ####[id number] [place] [address] RBC Auto #/vol (Bld) Canceled Normal [facility] Comment on above: Order Comment: TEST CBC WAS CANCELLED, 04/04/2018 18:30 ?Cancel Reason: Cancelled. Performed By: #### C BC ####[id number] [place] [address] WBC Auto #/vol (Bld) Canceled Normal [facility] Comment on above: Order Comment: TEST CBC WAS CANCELLED, 04/04/2018 18:30 ?Cancel Reason: Cancelled. Performed By: #### C BC ####[id number] [place] [address] Erythrocyte distribution width Auto Ratio (RBC) Canceled Normal [facility] Comment on above: Order Comment: TEST CBC WAS CANCELLED, 04/04/2018 03:39 No specimen received. Performed By: #### C BC ####[id number] [place] [address] Hematocrit Auto Volume Fraction (Bld) Canceled Normal [facility] Comment on above: Order Comment: TEST CBC WAS CANCELLED, 04/04/2018 03:39 No specimen received. Performed By: #### C BC ####[id number] [place] [address] Hemoglobin mass conc (Bld) Canceled Normal [facility] Comment on above: Order Comment: TEST CBC WAS CANCELLED, 04/04/2018 03:39 No specimen received. Performed By: #### C BC ####[id number] [place] [address] MCHC Auto mass conc (RBC) Canceled Normal [facility] Comment on above: Order Comment: TEST CBC WAS CANCELLED, 04/04/2018 03:39 No specimen received. Performed By: #### C BC ####[id number] [place] [address] MCV Auto Entitic volume (RBC) Canceled Normal [facility] Comment on above: Order Comment: TEST CBC WAS CANCELLED, 04/04/2018 03:39 No specimen received. Performed By: #### C BC ####[id number] [place] [address] Nucleated RBC/100 WBC Ratio (Bld) Canceled Normal [facility] Comment on above: Order Comment: TEST CBC WAS CANCELLED, 04/04/2018 03:39 No specimen received. Performed By: #### C BC ####[id number] [place] [address] Platelets Auto #/vol (Bld) Canceled Normal [facility] Comment on above: Order Comment: TEST CBC WAS CANCELLED, 04/04/2018 03:39 No specimen received. Performed By: #### C BC ####[id number] [place] [address] RBC Auto #/vol (Bld) Canceled Normal [facility] Comment on above: Order Comment: TEST CBC WAS CANCELLED, 04/04/2018 03:39 No specimen received. Performed By: #### C BC ####[id number] [place] [address] WBC Auto #/vol (Bld) Canceled Normal [facility] Comment on above: Order Comment: TEST CBC WAS CANCELLED, 04/04/2018 03:39 No specimen received. Performed By: #### C BC ####[id number] [place] [address] Erythrocyte distribution width Auto Ratio (RBC) 12.4 % Normal 11.5 - 14.5 [facility] Comment on above: Performed By: #### E MRAD ####NO LOCATION NEEDED Hematocrit Auto Volume Fraction (Bld) 26.8 % Low 41.0 - 52.0 [facility] Comment on above: Performed By: #### E MRAD ####NO LOCATION NEEDED Hemoglobin mass conc (Bld) 9.0 g/dL Low 13.5 - 17.5 [facility] Comment on above: Performed By: #### E MRAD ####NO LOCATION NEEDED MCHC Auto mass conc (RBC) 33.6 g/dL Normal 32.0 - 36.0 [facility] Comment on above: Performed By: #### E MRAD ####NO LOCATION NEEDED MCV Auto Entitic volume (RBC) 93 fL Normal 80 - 100 [facility] Comment on above: Performed By: #### E MRAD ####NO LOCATION NEEDED Nucleated RBC/100 WBC Ratio (Bld) 0.0 /100 WBC Normal 0.0-0.0 [facility] Comment on above: Performed By: #### E MRAD ####NO LOCATION NEEDED Platelets Auto #/vol (Bld) 168 10*3/uL Normal 150 - 450 [facility] Comment on above: Performed By: #### E MRAD ####NO LOCATION NEEDED RBC Auto #/vol (Bld) 2.89 x10E12/L Low 4.50 - 5.90 [facility] Comment on above: Performed By: #### E MRAD ####NO LOCATION NEEDED WBC Auto #/vol (Bld) 9.9 10*3/uL Normal 4.4 - 11.3 [facility] Comment on above: Performed By: #### E MRAD ####NO LOCATION NEEDED CBC AND DIFFERENTIALon 04-04 % AUTOMATED IMMATURE GRAN 0.9 % Normal 0.0 - 0.9 [facility] Comment on above: Result Comment: Perc ent differential counts (%) should be interpreted in the context of the absolute cell counts (cells/L). Performed By: #### C BC ####[id number] [place] [address] % NEUTROPHIL 62.2 % Normal 40.0 - 80.0 [facility] Comment on above: Performed By: #### C BC ####[id number] [place] [address] Basophils/100 WBC Auto (Bld) 0.8 % Normal 0.0 - 2.0 [facility] Comment on above: Performed By: #### C BC ####[id number] [place] [address] Basophils/100 WBC Auto (Bld) 0.07 x10E9/L Normal 0.00 - 0.10 [facility] Comment on above: Performed By: #### C BC ####[id number] [place] [address] Eosinophils Auto #/vol (Bld) 0.56 10*3/uL Normal 0.00 - 0.70 [facility] Comment on above: Performed By: #### C BC ####[id number] [place] [address] Eosinophils/100 WBC Auto (Bld) 6.0 % Normal 0.0 - 6.0 [facility] Comment on above: Performed By: #### C BC ####[id number] [place] [address] Erythrocyte distribution width Auto Ratio (RBC) 12.6 % Normal 11.5 - 14.5 [facility] Comment on above: Performed By: #### C BC ####[id number] [place] [address] Hematocrit Auto Volume Fraction (Bld) 26.6 % Low 41.0 - 52.0 [facility] Comment on above: Performed By: #### C BC ####[id number] [place] [address] Hemoglobin mass conc (Bld) 9.0 g/dL Low 13.5 - 17.5 [facility] Comment on above: Performed By: #### C BC ####[id number] [place] [address] Lymphocytes Auto #/vol (Bld) 1.96 10*3/uL Normal 1.20 - 4.80 [facility] Comment on above: Performed By: #### C BC ####[id number] [place] [address] Lymphocytes/100 WBC Auto (Bld) 21.0 % Normal 13.0 - 44.0 [facility] Comment on above: Performed By: #### C BC ####[id number] [place] [address] MCHC Auto mass conc (RBC) 33.8 g/dL Normal 32.0 - 36.0 [facility] Comment on above: Performed By: #### C BC ####[id number] [place] [address] MCV Auto Entitic volume (RBC) 91 fL Normal 80 - 100 [facility] Comment on above: Performed By: #### C BC ####[id number] [place] [address] Monocytes Auto #/vol (Bld) 0.85 10*3/uL Normal 0.10 - 1.00 [facility] Comment on above: Performed By: #### C BC ####[id number] [place] [address] Monocytes/100 WBC Auto (Bld) 9.1 % Normal 2.0 - 10.0 [facility] Comment on above: Performed By: #### C BC ####[id number] [place] [address] Neutrophils Auto #/vol (Bld) 5.81 10*3/uL Normal 1.20 - 7.70 [facility] Comment on above: Performed By: #### C BC ####[id number] [place] [address] Nucleated RBC/100 WBC Ratio (Bld) 0.0 /100 WBC Normal 0.0-0.0 [facility] Comment on above: Performed By: #### C BC ####[id number] [place] [address] Platelets Auto #/vol (Bld) 173 10*3/uL Normal 150 - 450 [facility] Comment on above: Performed By: #### C BC ####[id number] [place] [address] RBC Auto #/vol (Bld) 2.93 x10E12/L Low 4.50 - 5.90 [facility] Comment on above: Performed By: #### C BC ####[id number] [place] [address] WBC Auto #/vol (Bld) 9.3 10*3/uL Normal 4.4 - 11.3 [facility] Comment on above: Performed By: #### C BC ####[id number] [place] [address] COAGULATION SCREENon 17-2 018 aPTT Coag time (Bld) 79 s High 28 - 38 [facility] Comment on above: Result Comment: Note new reference range as of 03/10/2018. THE APTT IS NO LONGER USED FOR MONITORING UNFRACTIONATED HEPARIN THERAPY. FOR MONITORING HEPARIN THERAPY, USE THE HEPARIN ASSAY. Performed By: #### C BC ####[id number] [place] [address] INR Coag RelTime (PPP) 1.4 {INR} High 0.9 - 1.1 [facility] Comment on above: Performed By: #### C BC ####[id number] [place] [address] Prothrombin time (PT) Coag time (PPP) 15.3 s High 9.7 - 12.7 [facility] Comment on above: Result Comment: Note new reference range as of 03/10/2018. Performed By: #### C BC ####[id number] [place] [address] Daily Progress Note-Cardiac Surgeryon 04-04-2018 Protein mass [...] complaints overnight Objective Data: Objective Information: T [id number]/759 5%Date/Time04/04 14: 14: 14: 14: 14:42Range(36C - 36.8C ) (67 - 75 ) (16 - 20 ) (117 - 128 )/ (69 - 76 ) (93% -97% ) As of 04-Apr-2018 04:41:00, patient is on 2 L/min of oxygen via nasal cannula. Pain with Activity reported at 04/04 8:15: 0Pain at Rest reported at 04/04 8:15: 0 Iqpptlf25/17 4:41: Weight in kg (Weight (kg)) 109.9106/04 4:41: Weight in lbs ((lbs)) 242.5 ---- Intake and Output -----Mn/Dy/Year TimeIntakeOutCritical access hospitalNov 2017 2:00 [id number] 2017 6:00 [id number] 2017 10:00 [id number] The Intake and Output Totals for the last 24 hours are:DsimqgBqnuvcLoo732999-99 Physical Exam: Constitutional: lying in bed; NAD, [...] w/o s/s infection Medication: Medications: Continuous Medications ---- 1. Heparin 25,000 units/ D5W 250 mL Infusion..: 2000 units/hr IntraVenous Scheduled Medications ---- 1. Aspirin Enteric Coated: 81 mg Oral [...] Warfarin: 5 mg Oral Daily PRN Medications ---- 1. Bisacodyl Rectal: 10 mg Rectal Daily2. Dextrose 50% in Water Injectable: 25 gram(s) IntraVenous Push Every 68Rlbqtdm7. Glucagon Injectable: 1 mg IntraMuscular Every 15 Minutes4. Ondansetron Injectable: 4 mg IntraVenous Push Every 6 Hours5. oxyCODONE Immediate Release: 5 mg Oral Every 4 Hours6. oxyCODONE Immediate Release: 10 mg Oral Every 4 Hours Recent Lab Results: Results: I have reviewed these laboratory results: Glucose_POCT Trending View Aohumb47-Arp-2665 15:59:00 04-Apr-2018 12:39:00 04-Apr-2018 07:30:00Glucose-KFGR308 H 248 H 207 H Coagulation Screen [...] a past medical history of HTN,HLD, T2DM, Colbert's disease, hypothyroidism, COPD, AKASH on CPAP, prostate Spring/p prostatectomy in 2011, and psoriasis [facility]18 for CABG eval. [place]ed to [place] with [facility] pressure and dyspnea. He as found to havebilat PEs, was started on Heparin gtt, and transferred to [facility]. He wasfound to have a troponin leak at 2.25. Cardiology was consulted and the patientwas diagnosed with ACS, NSTEMI. He underwent a TTE and cath. He had normal EF,mild AI, and triple vessel CAD so was transferred to [facility] for CABG eval.Pulm consulted for PE workup. 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, insulin gtt;one CT with air leak [...] 04/04 changed to 75 mg PO BID dmnnjmbo31/18 Acute postop blood loss anemia- hct 26.6, [...] postop cardiac surgery hypervolemia- replete electrolytes for hypokalemia/hypomagnesemia/h ypophosphatemia asneeded - 04/03 replaced K, 04/04 replaced K and Mg Endo - h/o Brigida's disease, DM, hypothyroidism- Appreciate endo recs, now have signed off as of 04/04- hydrocortisone taper ordered as per Endo recs for Colbert's- starting fludrocortisone 4 days per week on [...] in 4-6 weeks if patient can take continuousanticoagulation.-- - Consideration of anticoagulation beyond 6 months duration--- [...] early the week of 04/06- plan home connect lpn and PT- continue to assess discharge needs Signature/Cosignature/Attest ation:Provider/Team Contact Info-Pager Numbercardiac surgery [phone] Electronic Signatures:Alexandra Milligan ([facility]) (Signed 04-Apr-2018 17:36)Authored: Service, Subjective Data, Objective Data, Assessment and Plan,Signature/Cosignature/A ttestation Last Updated: 04-Apr-2018 17:36 by Alexandra Milligan ([facility]) Normal [facility] Daily Progress Note-Endocrin cherie 04-04-2018 Protein mass conc Consult Type: subseq uent visit/care Service: Endocrinology Subjective Data:DON ELKINS is a 67 year old Male who is Hospital Day # 18 and POD #4 for CABGx 3;-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 denies any nausea, vomiting and diarrhea. Objective Data: Objective Information: ---- Intake and Output -----Mn/Dy/Year TimeIntakeOutputNetNov 2017 6:00 [id number] 2017 10:00 [id number] 2017 2:00 [id number] The Intake and Output Totals for the last 24 hours are:XwfqptPakrrlOcd360189-54 0T ODNCOxP3Gzxon01.95073428/769 3%Date/Time04/04 7: 7: 7: 7: 7:24Range(36.1C - 36.8C [...] reviewed these laboratory results: Glucose_POCT Trending View Fynlbr32-Qvi-8136 07:30:00 03-Apr-2018 22:08:00 03-Apr-2018 18:12:00 03-Apr-2018 11:22:00Glucose-IOJU464 H 192 H 294 H 151 H Complete Blood Count + Differential 04-Apr-2018 02:57:00 ResultValueWhite Blood Cell Count 9.3Nucleated Erythrocyte Count 0.0Red Blood Cell Count 2.93 LHGB 9.0 LHCT 26.6 LMCV 91MCHC 33.8PLT 173RDW-CV 12.6Neutrophil % 62.2Immature Granulocytes % 0.9Lymphocyte % 21.0Monocyte % 9.1Eosinophil % 6.0Basophil % 0.8Neutrophil Count 5.81Lymphocyte Count 1.96Monocyte Count 0.85Eosinophil Count 0.56Basophil Count 0.07 Renal Function Panel Trending View Wflpcs24-Ewf-9989 02:57:00 03-Apr-2018 21:03:00Glucose, Eusjd548 H 198 QII367 L 132 LK3.8 4.3CL97 L 97 LBicarbonate, Serum27 26Anion Gap, Serum13 28VTI12 H 27 HCREAT1.24 1.30GFR-Non Vxloqtke09 A 55 AGFR- Zujxetoo47 67Calcium, Serum8.3 L 8.3 LPhosphorus, Serum2.9 2.7ALB3.2 L 3.2 L Magnesium, Serum 04-Apr-2018 02:57:00 ResultValueMagnesium, Serum 1.88 Complete Blood Count 03-Apr-2018 21:03:00 ResultValueWhite Blood Cell Count 9.9Nucleated Erythrocyte Count 0.0Red Blood Cell Count 2.89 LHGB 9.0 LHCT 26.8 LMCV 93MCHC 33.6PLT 168RDW-CV 12.4 Assessment and Plan:Assessment: Mr. Elikns is a 67 yo WM with no known history of CAD, who has a past medicalhistory of HTN, HLD, T2DM, Colbert's disease, hypothyroidism, COPD, AKASH onCPAP, prostate ca s/p prostatectomy in 2011, and psoriasis who was [facility]to [facility] on 03/18 forCABG eval.Endocrine consulted fr evaluation of Colbert disease and treatment periop Patient was on supra-therapeutic dose of HCT 20-0-20 , fludrocortisone 0.1 ,mgdailyPatient has uncontrolled HTN and uncontrolled BSIVC filter placed on abg 03/31 1. Colbert's Disease- HC taper as below04/04- make HCt [...] weekly ( and Friday) on 04/06 2. M7EU-cumseoba Glargine 20 units QHS and Lispro 6 TIDAC-ISS correction 2 units per 50 >150 Will sign off, page or call with questionsAbove was communicated to primary team Patient was seen, examined and discussed with Domingo Signature/Cosignature/Attest ation:Attending AttestationI saw and evaluated the patient. I [...] patient (as noted in the above attestation) [id number] Electronic Signatures:Shanda Rose (Fellow)) (Signed 04-Apr-2018 13:07)Authored: Service, Subjective Data, Objective Data, Assessment and Plan,Signature/Cosignature/A ttestLeighton Haney) (Signed 06-Apr-2018 12:54)Authored: Signature/Cosignature/Attest ationCo-Signer: Service, Subjective Data, Objective Data Last Updated: 06-Apr-2018 12:[address]) Normal [facility] GLUCOSE-POCTon 04-04-2018 Glucose mass conc 204 mg/dL High 74 - 99 [facility] Comment on above: Performed By: #### C BC ####[id number] [place] [address] Glucose mass conc 248 mg/dL High 74 - 99 [facility] Comment on above: Performed By: #### C BC ####[id number] [place] [address] Glucose mass conc 207 mg/dL High 74 - 99 [facility] Comment on above: Performed By: #### C BC ####[id number] [place] [address] Glucose mass conc 192 mg/dL High 74 - 99 [facility] Comment on above: Performed By: #### E MRAD ####NO LOCATION NEEDED HEPARIN ASSAY,UFHon 04-04-20 HEPARIN ASSAY,UFH 0.5 IU/mL Normal [facility] Comment on above: Result Comment: The therapeutic reference range for UFH may be either 0.3-0.6 IU/mL or 0.3-0.7 IU/mL based on the clinical setting for anticoagulant therapy and the associated nomogram used. For heparin dosing guidelines based on clinical scenario and Heparin Assay results, please refer to local Pharmacy and the [facility] Guidelines for Anticoagulation therapy available on the [facility] intranet at:[email or web address] [email or web address]_Guidelines_for_[email or web address].aspx Performed By: #### C BC ####[id number] [place] [address] HEPARIN ASSAY,UFH 0.5 IU/mL Normal [facility] Comment on above: Result Comment: The therapeutic reference range for UFH may be either 0.3-0.6 IU/mL or 0.3-0.7 IU/mL based on the clinical setting for anticoagulant therapy and the associated nomogram used. For heparin dosing guidelines based on clinical scenario and Heparin Assay results, please refer to local Pharmacy and the [facility] Guidelines for Anticoagulation therapy available on the [facility] intranet at:[email or web address]/[place]_ [place]_Guidelines_for_Anticoagu.aspx Performed By: #### E MRAD ####NO LOCATION NEEDED MAGNESIUMon 04-04-2018 Magnesium mass conc 1.88 mg/dL Normal 1.60 - 2.40 [facility] Comment on above: Performed By: #### C BC ####[id number] [place] [address] RENAL FUNCTION PANELon 04-04 Albumin mass conc Canceled Normal [facility] Comment on above: Order Comment: TEST RENAL FUNCTION PANEL WAS CANCELLED, 04/04/2018 18:30 ?Cancel Reason:Cancelled. Performed By: #### C BC ####[id number] [place] [address] Anion gap 3 molar conc Canceled Normal [facility] Comment on above: Order Comment: TEST RENAL FUNCTION PANEL WAS CANCELLED, 04/04/2018 18:30 ?Cancel Reason:Cancelled. Performed By: #### C BC ####[id number] [place] [address] Calcium mass conc Canceled Normal [facility] Comment on above: Order Comment: TEST RENAL FUNCTION PANEL WAS CANCELLED, 04/04/2018 18:30 ?Cancel Reason:Cancelled. Performed By: #### C BC ####[id number] [place] [address] Chloride molar conc Canceled Normal [facility] Comment on above: Order Comment: TEST RENAL FUNCTION PANEL WAS CANCELLED, 04/04/2018 18:30 ?Cancel Reason:Cancelled. Performed By: #### C BC ####[id number] [place] [address] Creatinine mass conc Canceled Normal [facility] Comment on above: Order Comment: TEST RENAL FUNCTION PANEL WAS CANCELLED, 04/04/2018 18:30 ?Cancel Reason:Cancelled. Performed By: #### C BC ####[id number] [place] [address] GFR- AM. Canceled Normal [facility] Comment on above: Order Comment: TEST RENAL FUNCTION PANEL WAS CANCELLED, 04/04/2018 18:30 ?Cancel Reason:Cancelled. Result Comment: CALC ULATIONS OF ESTIMATED GFR ARE PERFORMED USING THE MDRD STUDY EQUATION FOR THE IDMS-TRACEABLE CREATININE METHODS. CLIN CHEM 2007;53:766-72 Performed By: #### C BC ####[id number] [place] [address] GFR-NON AM. Canceled Normal [facility] Comment on above: Order Comment: TEST RENAL FUNCTION PANEL WAS CANCELLED, 04/04/2018 18:30 ?Cancel Reason:Cancelled. Performed By: #### C BC ####[id number] [place] [address] Glucose mass conc Canceled Normal [facility] Comment on above: Order Comment: TEST RENAL FUNCTION PANEL WAS CANCELLED, 04/04/2018 18:30 ?Cancel Reason:Cancelled. Performed By: #### C BC ####[id number] [place] [address] HCO3 molar conc (Bld) Canceled Normal [facility] Comment on above: Order Comment: TEST RENAL FUNCTION PANEL WAS CANCELLED, 04/04/2018 18:30 ?Cancel Reason:Cancelled. Performed By: #### C BC ####[id number] [place] [address] Phosphate mass conc Canceled Normal [facility] Comment on above: Order Comment: TEST RENAL FUNCTION PANEL WAS CANCELLED, 04/04/2018 18:30 ?Cancel Reason:Cancelled. Result Comment: The performance characteristics of phosphorus testing in heparinized plasma have been validated by the individual laboratory site where testing is performed. Testing on heparinized plasma is not approved by the FDA; however, such approval is not necessary. Performed By: #### C BC ####[id number] [place] [address] Potassium molar conc Canceled Normal [facility] Comment on above: Order Comment: TEST RENAL FUNCTION PANEL WAS CANCELLED, 04/04/2018 18:30 ?Cancel Reason:Cancelled. Performed By: #### C BC ####[id number] [place] [address] Sodium molar conc Canceled Normal [facility] Comment on above: Order Comment: TEST RENAL FUNCTION PANEL WAS CANCELLED, 04/04/2018 18:30 ?Cancel Reason:Cancelled. Performed By: #### C BC ####[id number] [place] [address] Urea nitrogen mass conc Canceled Normal [facility] Comment on above: Order Comment: TEST RENAL FUNCTION PANEL WAS CANCELLED, 04/04/2018 18:30 ?Cancel Reason:Cancelled. Performed By: #### C BC ####[id number] [place] [address] Albumin mass conc 3.2 g/dL Low 3.4 - 5.0 [facility] Comment on above: Performed By: #### C BC ####[id number] [place] [address] Anion gap 3 molar conc 13 mmol/L Normal 10 - 20 [facility] Comment on above: Performed By: #### C BC ####[id number] [place] [address] Calcium mass conc 8.3 mg/dL Low 8.6 - 10.6 [facility] Comment on above: Performed By: #### C BC ####[id number] [place] [address] Chloride molar conc 97 mmol/L Low 98 - 107 [facility] Comment on above: Performed By: #### C BC ####[id number] [place] [address] Creatinine mass conc 1.24 mg/dL Normal 0.50 - 1.30 [facility] Comment on above: Performed By: #### C BC ####[id number] [place] [address] GFR- AM. 70 mL/min/1.73m2 Normal >60 [facility] Comment on above: Result Comment: CALC ULATIONS OF ESTIMATED GFR ARE PERFORMED USING THE MDRD STUDY EQUATION FOR THE IDMS-TRACEABLE CREATININE METHODS. CLIN CHEM 2007;53:766-72 Performed By: #### C BC ####[id number] [place] [address] GFR-NON AM. 58 mL/min/1.73m2 Abnormal >60 [facility] Comment on above: Performed By: #### C BC ####[id number] [place] [address] Glucose mass conc 131 mg/dL High 74 - 99 [facility] Comment on above: Performed By: #### C BC ####[id number] [place] [address] HCO3 molar conc (Bld) 27 mmol/L Normal 21 - 32 [facility] Comment on above: Performed By: #### C BC ####[id number] [place] [address] Phosphate mass conc 2.9 mg/dL Normal 2.5 - 4.9 [facility] Comment on above: Result Comment: The performance characteristics of phosphorus testing in heparinized plasma have been validated by the individual laboratory site where testing is performed. Testing on heparinized plasma is not approved by the FDA; however, such approval is not necessary. Performed By: #### C BC ####[id number] [place] [address] Potassium molar conc 3.8 mmol/L Normal 3.5 - 5.3 [facility] Comment on above: Performed By: #### C BC ####[id number] [place] [address] Sodium molar conc 133 mmol/L Low 136 - 145 [facility] Comment on above: Performed By: #### C BC ####[id number] [place] [address] Urea nitrogen mass conc 26 mg/dL High 6 - 23 [facility] Comment on above: Performed By: #### C BC ####[id number] [place] [address] Albumin mass conc 3.2 g/dL Low 3.4 - 5.0 [facility] Comment on above: Performed By: #### E MRAD ####NO LOCATION NEEDED Anion gap 3 molar conc 13 mmol/L Normal 10 - 20 [facility] Comment on above: Performed By: #### E MRAD ####NO LOCATION NEEDED Calcium mass conc 8.3 mg/dL Low 8.6 - 10.6 [facility] Comment on above: Performed By: #### E MRAD ####NO LOCATION NEEDED Chloride molar conc 97 mmol/L Low 98 - 107 [facility] Comment on above: Performed By: #### E MRAD ####NO LOCATION NEEDED Creatinine mass conc 1.30 mg/dL Normal 0.50 - 1.30 [facility] Comment on above: Performed By: #### E MRAD ####NO LOCATION NEEDED GFR- AM. 67 mL/min/1.73m2 Normal >60 [facility] Comment on above: Result Comment: CALC ULATIONS OF ESTIMATED GFR ARE PERFORMED USING THE MDRD STUDY EQUATION FOR THE IDMS-TRACEABLE CREATININE METHODS. CLIN CHEM 2007;53:766-72 Performed By: #### E MRAD ####NO LOCATION NEEDED GFR-NON AM. 55 mL/min/1.73m2 Abnormal >60 [facility] Comment on above: Performed By: #### E MRAD ####NO LOCATION NEEDED Glucose mass conc 198 mg/dL High 74 - 99 [facility] Comment on above: Performed By: #### E MRAD ####NO LOCATION NEEDED HCO3 molar conc (Bld) 26 mmol/L Normal 21 - 32 [facility] Comment on above: Performed By: #### E MRAD ####NO LOCATION NEEDED Phosphate mass conc 2.7 mg/dL Normal 2.5 - 4.9 [facility] Comment on above: Result Comment: The performance characteristics of phosphorus testing in heparinized plasma have been validated by the individual laboratory site where testing is performed. Testing on heparinized plasma is not approved by the FDA; however, such approval is not necessary. Performed By: #### E MRAD ####NO LOCATION NEEDED Potassium molar conc 4.3 mmol/L Normal 3.5 - 5.3 [facility] Comment on above: Performed By: #### E MRAD ####NO LOCATION NEEDED Sodium molar conc 132 mmol/L Low 136 - 145 [facility] Comment on above: Performed By: #### E MRAD ####NO LOCATION NEEDED Urea nitrogen mass conc 27 mg/dL High 6 - 23 [facility] Comment on above: Performed By: #### E [...] Electronically signed by: STANISLAV RADFORD MD Normal [facility] CBCon 04-03-2018 Erythrocyte distribution width Auto Ratio (RBC) 13.0 % Normal 11.5 - 14.5 [facility] Comment on above: Performed By: #### E MRAD ####NO LOCATION NEEDED Hematocrit Auto Volume Fraction (Bld) 28.5 % Low 41.0 - 52.0 [facility] Comment on above: Performed By: #### E MRAD ####NO LOCATION NEEDED Hemoglobin mass conc (Bld) 9.6 g/dL Low 13.5 - 17.5 [facility] Comment on above: Performed By: #### E MRAD ####NO LOCATION NEEDED MCHC Auto mass conc (RBC) 33.7 g/dL Normal 32.0 - 36.0 [facility] Comment on above: Performed By: #### E MRAD ####NO LOCATION NEEDED MCV Auto Entitic volume (RBC) 93 fL Normal 80 - 100 [facility] Comment on above: Performed By: #### E MRAD ####NO LOCATION NEEDED Nucleated RBC/100 WBC Ratio (Bld) 0.0 /100 WBC Normal 0.0-0.0 [facility] Comment on above: Performed By: #### E MRAD ####NO LOCATION NEEDED Platelets Auto #/vol (Bld) 130 10*3/uL Low 150 - 450 [facility] Comment on above: Performed By: #### E MRAD ####NO LOCATION NEEDED RBC Auto #/vol (Bld) 3.08 x10E12/L Low 4.50 - 5.90 [facility] Comment on above: Performed By: #### E MRAD ####NO LOCATION NEEDED WBC Auto #/vol (Bld) 10.9 10*3/uL Normal 4.4 - 11.3 [facility] Comment on above: Performed By: #### E MRAD ####NO LOCATION NEEDED CBC AND DIFFERENTIALon 04-03 % AUTOMATED IMMATURE GRAN 0.6 % Normal 0.0 - 0.9 [facility] Comment on above: Result Comment: Perc ent differential counts (%) should be interpreted in the context of the absolute cell counts (cells/L). Performed By: #### E MRAD ####NO LOCATION NEEDED % NEUTROPHIL 60.9 % Normal 40.0 - 80.0 [facility] Comment on above: Performed By: #### E MRAD ####NO LOCATION NEEDED Basophils/100 WBC Auto (Bld) 0.07 x10E9/L Normal 0.00 - 0.10 [facility] Comment on above: Performed By: #### E MRAD ####NO LOCATION NEEDED Basophils/100 WBC Auto (Bld) 0.7 % Normal 0.0 - 2.0 [facility] Comment on above: Performed By: #### E MRAD ####NO LOCATION NEEDED Eosinophils Auto #/vol (Bld) 0.67 10*3/uL Normal 0.00 - 0.70 [facility] Comment on above: Performed By: #### E MRAD ####NO LOCATION NEEDED Eosinophils/100 WBC Auto (Bld) 7.1 % Normal 0.0 - 6.0 [facility] Comment on above: Performed By: #### E MRAD ####NO LOCATION NEEDED Erythrocyte distribution width Auto Ratio (RBC) 12.8 % Normal 11.5 - 14.5 [facility] Comment on above: Performed By: #### E MRAD ####NO LOCATION NEEDED Hematocrit Auto Volume Fraction (Bld) 28.5 % Low 41.0 - 52.0 [facility] Comment on above: Performed By: #### E MRAD ####NO LOCATION NEEDED Hemoglobin mass conc (Bld) 9.6 g/dL Low 13.5 - 17.5 [facility] Comment on above: Performed By: #### E MRAD ####NO LOCATION NEEDED Lymphocytes Auto #/vol (Bld) 1.99 10*3/uL Normal 1.20 - 4.80 [facility] Comment on above: Performed By: #### E MRAD ####NO LOCATION NEEDED Lymphocytes/100 WBC Auto (Bld) 21.0 % Normal 13.0 - 44.0 [facility] Comment on above: Performed By: #### E MRAD ####NO LOCATION NEEDED MCHC Auto mass conc (RBC) 33.7 g/dL Normal 32.0 - 36.0 [facility] Comment on above: Performed By: #### E MRAD ####NO LOCATION NEEDED MCV Auto Entitic volume (RBC) 92 fL Normal 80 - 100 [facility] Comment on above: Performed By: #### E MRAD ####NO LOCATION NEEDED Monocytes Auto #/vol (Bld) 0.92 10*3/uL Normal 0.10 - 1.00 [facility] Comment on above: Performed By: #### E MRAD ####NO LOCATION NEEDED Monocytes/100 WBC Auto (Bld) 9.7 % Normal 2.0 - 10.0 [facility] Comment on above: Performed By: #### E MRAD ####NO LOCATION NEEDED Neutrophils Auto #/vol (Bld) 5.76 10*3/uL Normal 1.20 - 7.70 [facility] Comment on above: Performed By: #### E MRAD ####NO LOCATION NEEDED Nucleated RBC/100 WBC Ratio (Bld) 0.0 /100 WBC Normal 0.0-0.0 [facility] Comment on above: Performed By: #### E MRAD ####NO LOCATION NEEDED Platelets Auto #/vol (Bld) 144 10*3/uL Low 150 - 450 [facility] Comment on above: Performed By: #### E MRAD ####NO LOCATION NEEDED RBC Auto #/vol (Bld) 3.09 x10E12/L Low 4.50 - 5.90 [facility] Comment on above: Performed By: #### E MRAD ####NO LOCATION NEEDED WBC Auto #/vol (Bld) 9.5 10*3/uL Normal 4.4 - 11.3 [facility] Comment on above: Performed By: #### E [...] Contact Information:Provider/Team Contact Info-Pager Number: cardiac surgery [phone] Electronic Signatures:Mary Munroe (LITHOGRAPH PRESS OPERATOR [employer]INWARE-CUSTOMER SERVICE LEADER) (Signed 03-Apr-2018 16:04)Authored: Event, Provider / Team Contact Information Last Updated: 03-Apr-2018 16:04 by Mary Munroe (LITHOGRAPH PRESS OPERATOR [employer]IN[employer]-CUSTOMER SERVICE LEADER) Normal [facility] Daily Progress Note-Cardiac Surgeryon 04-03-2018 Protein mass [...] Intake and Output -----Mn/Dy/Year TimeIntakeOutputNetNov 2017 6:00 [id number] 2017 10:00 [id number] 2017 2:00 [id number] The Intake and Output Totals for the last 24 hours are:[id number] 75 Intake Output Enteral - Oral 820 mL Urine 1180 mL IV Fluids 55 mL Chest Tubes 170 mL T [id number]/689 2%Date/Time04/03 6: 6: 6: 6: 6:52Range(36C - 37.2C ) (69 - 86 ) (16 - 20 ) (108 - 134 )/ (66 - 75 ) (91% -95% ) As of 03-Apr-2018 04:00:00, patient is on 2% oxygen via nasal cannula.Highest temp of 37.2 C was recorded at 04/03 6:52 Qqzurbm40/16 6:00: Weight in kg (Weight (kg)) 109.811 [...] w/o s/s infection Medication: Medications: Scheduled Medications ----1. Aspirin Enteric Coated: 81 mg Oral Daily2. [...] Warfarin: 5 mg Oral Daily PRN Medications ----1. Bisacodyl Rectal: 10 mg Rectal Daily2. Dextrose 50% in Water Injectable: 25 gram(s) IntraVenous Push Every 33Plxzngx9. Glucagon Injectable: 1 mg IntraMuscular Every 15 Minutes4. Ondansetron Injectable: 4 mg IntraVenous Push Every 6 Hours5. oxyCODONE Immediate Release: 5 mg Oral Every 4 Hours6. oxyCODONE Immediate Release: 10 mg Oral Every 4 Hours Currently Suspended Medications ----1. Lisinopril: 20 mg Oral Every Night Recent [...] 06:57:00 ResultValueMagnesium, Serum 1.94 Glucose_POCT Trending View [id number] 21:05:00 02-Apr-2018 17:14:00 02-Apr-2018 11:05:00 02-Apr-2018 07:21:00 02-Apr-2018 03:09:00Glucose-FJZP096 H 137 H 310 H 223 H [...] psoriasis [facility] for CABG eval. [place] pressure and dyspnea. He as found to havebilat PEs, was started on Heparin gtt, and transferred to [facility]. He wasfound to have a troponin leak at 2.25. Cardiology was consulted and the patientwas diagnosed with ACS, NSTEMI. He underwent a TTE and cath. He had normal EF,mild AI, and triple vessel CAD so was transferred to [facility] for CABG eval.Pulm consulted for PE workup. Pt required unfractionated heparin infusion for7-10 days to take advantage of intrinsic fibrinolysis and clot stabilization,as well as an IVC filter.Endocrine consulted for evaluation of Colbert disease and treatment periop.Also managed DM. 03/23/2018 [...] postop cardiac surgery hypervolemia- replete electrolytes for hypokalemia/hypomagnesemia/h ypophosphatemia asneeded - 04/03 replaced K Endo - h/o Colbert's disease, DM, hypothyroidism- Endo is following, appreciate- [...] in 4-6 weeks if patient can take continuousanticoagulation.-- - Consideration of anticoagulation beyond 6 months duration--- [...] early the week of 04/06- plan home connect lpn and PT- continue to assess discharge needs Signature/Cosignature/Attest ation:Provider/Team Contact Info-Pager Numbercardiac surgery [phone] Electronic Signatures:Mary Munroe (LITHOGRAPH PRESS OPERATOR [employer]-CUSTOMER SERVICE LEADER) (Signed 03-Apr-2018 21:30)Authored: Service, Subjective Data, Objective Data, Assessment and Plan,Signature/Cosignature/A ttestation Last Updated: 03-Apr-2018 21:30 by Mary Munroe (LITHOGRAPH PRESS OPERATOR [employer]-CUSTOMER SERVICE LEADER) Normal [facility] Daily Progress Note-Endocrin yarelyyon 04-03-2018 Protein mass conc Consult Type: subseq uent visit/care Service: Endocrinology Subjective Data:DON ELKINS is a 67 year old Male who is Hospital Day # 17 and POD #3 for CABGx 3;-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 Objective Data: Objective Information: ---- Intake and Output -----Mn/Dy/Year TimeIntakeOutputNetNov 2017 2:00 [id number] 2017 6:00 [id number] 2017 10:00 [id number] The Intake and Output Totals for the last 24 hours are:[id number] 75T [id number]/519 4%Date/Time04/03 14: 14: 14: 14: 14:40Range(36.2C - 37.2C ) (69 - 86 ) (16 - 22 ) (108 - 152 )/ (51 - 72 ) (92%- 95% ) As of 03-Apr-2018 04:00:00, patient is on 2% oxygen via nasal cannula.Highest temp of 37.2 C was recorded at 04/03 6:52 Medication: Medications: Continuous Medications ----No continuous medications are active Scheduled Medications ---- 1. Aspirin Enteric Coated: 81 mg Oral [...] Warfarin: 5 mg Oral Daily PRN Medications ---- 1. Bisacodyl Rectal: 10 mg Rectal Daily2. Dextrose 50% in Water Injectable: 25 gram(s) IntraVenous Push Every 50Nrfeitv4. Glucagon Injectable: 1 mg IntraMuscular Every 15 Minutes4. Ondansetron Injectable: 4 mg IntraVenous Push Every 6 Hours5. oxyCODONE Immediate Release: 5 mg Oral Every 4 Hours6. oxyCODONE Immediate Release: 10 mg Oral Every 4 Hours Currently Suspended Medications ---- 1. Lisinopril: 20 mg Oral Every Night Recent Lab Results: Results: I have reviewed these laboratory results: Glucose_POCT Trending View [id number] 11:22:00 02-Apr-2018 21:05:00 02-Apr-2018 17:14:00 02-Apr-2018 11:05:00 02-Apr-2018 07:21:00Glucose-CXSC735 H 200 H 137 H 310 H [...] a past medicalhistory of HTN, HLD, T2DM, Colbert's disease, hypothyroidism, COPD, AKASH onCPAP, prostate ca s/p prostatectomy in 2011, and psoriasis who was [facility]to [facility] on 03/18 forCABG eval.Endocrine consulted fr evaluation of Colbert disease and treatment periop Patient was on [...] times weekly ( and Friday) on04/06 2. T5GI--kebmrgba Glargine today as : 20 units QHS and Lispro 6 TIDAC-ISS correction to 2 units per 50 >150--Will follow Please page with questions [phone] Patient seen and examined, plan discussed with Dr Geller Electronic Signatures:Bryon Sandoval (Fellow)) (Signed 03-Apr-2018 14:47)Authored: Service, Subjective Data, Objective Data, Assessment and Plan,Signature/Cosignature/A ttestationRose Mary Burrell) (Signed 03-Apr-2018 18:05)Authored: Signature/Cosignature/Attest ationCo-Signer: Service, Subjective Data, Objective Data, Assessment and Plan,Signature/Cosignature/A ttestation Last Updated: 03-Apr-2018 18:05 by Rose Mray Burrell) Normal [facility] GLUCOSE-POCTon 04-03-2018 Glucose mass conc 294 mg/dL High 74 - 99 [facility] Comment on above: Performed By: #### E MRAD ####NO LOCATION NEEDED Glucose mass conc 151 mg/dL High 74 - 99 [facility] Comment on above: Performed By: #### E MRAD ####NO LOCATION NEEDED MAGNESIUMon 04-03-2018 Magnesium mass conc 1.94 mg/dL Normal 1.60 - 2.40 [facility] Comment on above: Performed By: #### E MRAD ####NO LOCATION NEEDED PT/INRon 04-03-2018 INR Coag RelTime (PPP) 1.2 {INR} High 0.9 - 1.1 [facility] Comment on above: Performed By: #### E MRAD ####NO LOCATION NEEDED Prothrombin time (PT) Coag time (PPP) 13.7 s High 9.7 - 12.7 [facility] Comment on above: Result Comment: Note new reference range as of 03/10/2018. Performed By: #### E MRAD ####NO LOCATION NEEDED RENAL FUNCTION PANELon 04-03 Albumin mass conc 3.4 g/dL Normal 3.4 - 5.0 [facility] Comment on above: Performed By: #### E MRAD ####NO LOCATION NEEDED Anion gap 3 molar conc 14 mmol/L Normal 10 - 20 [facility] Comment on above: Performed By: #### E MRAD ####NO LOCATION NEEDED Calcium mass conc 8.5 mg/dL Low 8.6 - 10.6 [facility] Comment on above: Performed By: #### E MRAD ####NO LOCATION NEEDED Chloride molar conc 95 mmol/L Low 98 - 107 [facility] Comment on above: Performed By: #### E MRAD ####NO LOCATION NEEDED Creatinine mass conc 1.32 mg/dL High 0.50 - 1.30 [facility] Comment on above: Performed By: #### E MRAD ####NO LOCATION NEEDED GFR- AM. 65 mL/min/1.73m2 Normal >60 [facility] Comment on above: Result Comment: CALC ULATIONS OF ESTIMATED GFR ARE PERFORMED USING THE MDRD STUDY EQUATION FOR THE IDMS-TRACEABLE CREATININE METHODS. CLIN CHEM 2007;53:766-72 Performed By: #### E MRAD ####NO LOCATION NEEDED GFR-NON AM. 54 mL/min/1.73m2 Abnormal >60 [facility] Comment on above: Performed By: #### E MRAD ####NO LOCATION NEEDED Glucose mass conc 125 mg/dL High 74 - 99 [facility] Comment on above: Performed By: #### E MRAD ####NO LOCATION NEEDED HCO3 molar conc (Bld) 28 mmol/L Normal 21 - 32 [facility] Comment on above: Performed By: #### E MRAD ####NO LOCATION NEEDED Phosphate mass conc 3.1 mg/dL Normal 2.5 - 4.9 [facility] Comment on above: Result Comment: The performance characteristics of phosphorus testing in heparinized plasma have been validated by the individual laboratory site where testing is performed. Testing on heparinized plasma is not approved by the FDA; however, such approval is not necessary. Performed By: #### E MRAD ####NO LOCATION NEEDED Potassium molar conc 3.9 mmol/L Normal 3.5 - 5.3 [facility] Comment on above: Performed By: #### E MRAD ####NO LOCATION NEEDED Sodium molar conc 133 mmol/L Low 136 - 145 [facility] Comment on above: Performed By: #### E MRAD ####NO LOCATION NEEDED Urea nitrogen mass conc 25 mg/dL High 6 - 23 [facility] Comment on above: Performed By: #### E MRAD ####NO LOCATION NEEDED Albumin mass conc 3.5 g/dL Normal 3.4 - 5.0 [facility] Comment on above: Performed By: #### E MRAD ####NO LOCATION NEEDED Anion gap 3 molar conc 13 mmol/L Normal 10 - 20 [facility] Comment on above: Performed By: #### E MRAD ####NO LOCATION NEEDED Calcium mass conc 8.6 mg/dL Normal 8.6 - 10.6 [facility] Comment on above: Performed By: #### E MRAD ####NO LOCATION NEEDED Chloride molar conc 94 mmol/L Low 98 - 107 [facility] Comment on above: Performed By: #### E MRAD ####NO LOCATION NEEDED Creatinine mass conc 1.37 mg/dL High 0.50 - 1.30 [facility] Comment on above: Performed By: #### E MRAD ####NO LOCATION NEEDED GFR- AM. 63 mL/min/1.73m2 Normal >60 [facility] Comment on above: Result Comment: CALC ULATIONS OF ESTIMATED GFR ARE PERFORMED USING THE MDRD STUDY EQUATION FOR THE IDMS-TRACEABLE CREATININE METHODS. CLIN CHEM 2007;53:766-72 Performed By: #### E MRAD ####NO LOCATION NEEDED GFR-NON AM. 52 mL/min/1.73m2 Abnormal >60 [facility] Comment on above: Performed By: #### E MRAD ####NO LOCATION NEEDED Glucose mass conc 163 mg/dL High 74 - 99 [facility] Comment on above: Performed By: #### E MRAD ####NO LOCATION NEEDED HCO3 molar conc (Bld) 28 mmol/L Normal 21 - 32 [facility] Comment on above: Performed By: #### E MRAD ####NO LOCATION NEEDED Phosphate mass conc 3.0 mg/dL Normal 2.5 - 4.9 [facility] Comment on above: Result Comment: The performance characteristics of phosphorus testing in heparinized plasma have been validated by the individual laboratory site where testing is performed. Testing on heparinized plasma is not approved by the FDA; however, such approval is not necessary. Performed By: #### E MRAD ####NO LOCATION NEEDED Potassium molar conc 4.2 mmol/L Normal 3.5 - 5.3 [facility] Comment on above: Performed By: #### E MRAD ####NO LOCATION NEEDED Sodium molar conc 131 mmol/L Low 136 - 145 [facility] Comment on above: Performed By: #### E MRAD ####NO LOCATION NEEDED Urea nitrogen mass conc 24 mg/dL High 6 - 23 [facility] Comment on above: Performed By: #### E [...] findingsas stated. This study was interpreted at [facility], [place], [place].Electronically signed by: STANISLAV RADFORD MD Normal [facility] TH CHEST 1 VIEW Name: DON ELKINS [...] findingsas stated. This study was interpreted at [place], [place].Electronically signed by: STANISLAV RADFORD MD Normal [facility] ARTERIAL FULL PANELon 2017 Anion gap 3 molar conc 6 mmol/L Low 10 - 25 [facility] Comment on above: Performed By: #### E MRAD ####NO LOCATION NEEDED BASE EXCESS-BLOOD 4.1 mmol/L High -2.0 - 3.0 [facility] Comment on above: Performed By: #### E MRAD ####NO LOCATION NEEDED CALCIUM,IONIZED 1.13 mmol/L Normal 1.10 - 1.33 [facility] Comment on above: Performed By: #### E MRAD ####NO LOCATION NEEDED Chloride molar conc 100 mmol/L Normal 98 - 107 [facility] Comment on above: Performed By: #### E MRAD ####NO LOCATION NEEDED Glucose mass conc 182 mg/dL High 74 - 99 [facility] Comment on above: Performed By: #### E MRAD ####NO LOCATION NEEDED Hematocrit Auto Volume Fraction (Bld) 24.0 % Low 41.0 - 52.0 [facility] Comment on above: Performed By: #### E MRAD ####NO LOCATION NEEDED HGB,CALCULATED 8.2 g/dL Low 13.5 - 17.5 [facility] Comment on above: Performed By: #### E MRAD ####NO LOCATION NEEDED Lactate molar conc 1.5 mmol/L Normal 0.4 - 2.0 [facility] Comment on above: Performed By: #### E MRAD ####NO LOCATION NEEDED Oxygen ppres (BldA) 93 mm[Hg] Normal 85 - 95 [facility] Comment on above: Performed By: #### E MRAD ####NO LOCATION NEEDED PCO2 46 mmHg High 38 - 42 [facility] Comment on above: Performed By: #### E MRAD ####NO LOCATION NEEDED pH (Bld) 7.41 [pH] Normal 7.38 - 7.42 [facility] Comment on above: Performed By: #### E MRAD ####NO LOCATION NEEDED Potassium molar conc 4.1 mmol/L Normal 3.5 - 5.3 [facility] Comment on above: Performed By: #### E MRAD ####NO LOCATION NEEDED RBC Auto #/vol (Bld) 29.2 mmol/L High 22.0 - 26.0 [facility] Comment on above: Performed By: #### E MRAD ####NO LOCATION NEEDED SO2 99 % Normal 94 - 100 [facility] Comment on above: Performed By: #### E MRAD ####NO LOCATION NEEDED Sodium molar conc 131 mmol/L Low 136 - 145 [facility] Comment on above: Performed By: #### E MRAD ####NO LOCATION NEEDED CALCIUM, IONIZEDon 8 CALCIUM,IONIZED 1.11 mmol/L Normal 1.10 - 1.33 [facility] Comment on above: Result Comment: The performance [...] (RBC) 13.3 % Normal 11.5 - 14.5 [facility] Comment on above: Performed By: #### E MRAD ####NO LOCATION NEEDED Hematocrit Auto Volume Fraction (Bld) 29.1 % Low 41.0 - 52.0 [facility] Comment on above: Performed By: #### E MRAD ####NO LOCATION NEEDED Hemoglobin mass conc (Bld) 9.5 g/dL Low 13.5 - 17.5 [facility] Comment on above: Performed By: #### E MRAD ####NO LOCATION NEEDED MCHC Auto mass conc (RBC) 32.6 g/dL Normal 32.0 - 36.0 [facility] Comment on above: Performed By: #### E MRAD ####NO LOCATION NEEDED MCV Auto Entitic volume (RBC) 94 fL Normal 80 - 100 [facility] Comment on above: Performed By: #### E MRAD ####NO LOCATION NEEDED Nucleated RBC/100 WBC Ratio (Bld) 0.0 /100 WBC Normal 0.0-0.0 [facility] Comment on above: Performed By: #### E MRAD ####NO LOCATION NEEDED Platelets Auto #/vol (Bld) 122 10*3/uL Low 150 - 450 [facility] Comment on above: Performed By: #### E MRAD ####NO LOCATION NEEDED RBC Auto #/vol (Bld) 3.08 x10E12/L Low 4.50 - 5.90 [facility] Comment on above: Performed By: #### E MRAD ####NO LOCATION NEEDED WBC Auto #/vol (Bld) 10.1 10*3/uL Normal 4.4 - 11.3 [facility] Comment on above: Performed By: #### E MRAD ####NO LOCATION NEEDED COAGULATION SCREENon 018 aPTT Coag time (Bld) 28 s Normal 28 - 38 [facility] Comment on above: Result Comment: Note new reference range as of 03/10/2018. THE APTT IS NO LONGER USED FOR MONITORING UNFRACTIONATED HEPARIN THERAPY. FOR MONITORING HEPARIN THERAPY, USE THE HEPARIN ASSAY. Performed By: #### E MRAD ####NO LOCATION NEEDED INR Coag RelTime (PPP) 1.4 {INR} High 0.9 - 1.1 [facility] Comment on above: Performed By: #### E MRAD ####NO LOCATION NEEDED Prothrombin time (PT) Coag time (PPP) 15.2 s High 9.7 - 12.7 [facility] Comment on above: Result Comment: Note new reference range as of 03/10/2018. Performed By: #### E MRAD ####NO LOCATION NEEDED CORTISOL, P.M.on 04-02-2018 CORTISOL, P.M. 13.8 ug/dL High 2.5 - 10.0 [facility] Comment on above: Performed By: #### E MRAD ####NO LOCATION NEEDED Daily Progress Note - Critic al Care-SICU , purpleon 04-02-2018 Protein mass conc Service:Critical Car e Service: [facility] Subjective Data:ID Statement:DON ELKINS is a 67 [...] around the unit. Objective Data: Objective InformationT [id number]%Date /Time04/02 8: 7: 7: 7:00Range(36.3C - 37.2C ) [...] (L/min/m2)2.4(2.4 - 3.9)04/01 10:00 Direct Arterial Blood BbandolmPygwrlyt384(120 - 159)04/02 7:00Diastolic (mm Hg)51(51 - 77)04/02 7:00Mean (mm Hg)73(72 - 101)04/02 7:00Pulse Pressure (mm Hg)71(66 - 94)04/02 7:70Hilvyysx255(120 - 159)04/02 7:00Diastolic (mm Hg)51(51 - 77)04/02 7:00Mean (mm Hg)73(72 - 101)04/02 7:00Pulse Pressure (mm Hg)71(66 - 94)04/02 7:00 YTXGmdokzfs02(28 - 39)04/01 11:00Diastolic (mm Hg)22(10 - 22)04/01 11:00Mean (mm Hg)9(9 - 28)04/01 11:00 ---- Intake and Output -----Mn/Dy/Year TimeIntakeOutputNetNov 2017 6:00 [id number] 2017 10:00 [id number] 2017 2:00 [id number] The Intake and Output Totals for the last 24 hours are:[id number] 1 Drain and tube details (included in I&O totals)220 cc Chest Tube( 02-Apr-2018 06:00:00 )1410 cc Indwelling Catheter - Urethral( 02-Apr-2018 06:00:00 ) Physical Exam: Physical Exam:Neurological: Alert and oriented x3.Cardiovascular: NSR. Midsternal incision with dressing CDI. Mediastinal chesttube x 2 +airleak, draining minimal serosang. A-wires present, AAI @ 60. RightSVG site with lauren bandage intact. Pulses palpable throughout.Respiratory/Thora x: CTAB on 3L NC.Genitourinary: Her intact, draining [...] / 133 L 97 L 21 / ----- Glucose ------ 182 H K+ HCO3- Creat \ 4.1 27 1.21 \Calcium : 8.5 LAnion Gap : 13 Albumin : 3.5 Phos : 3.6 Coagulation: 04/02/2018 02:35PT / 15.2 H /-------< INR < 1.4 HPTT\ 28 \ Recent Arterial Blood Gas Results 04/02/2018 02:90lU084 24 h range: ( 73 - 93 )pH7.41 24 h range: ( 7.41 - 7.43 )lRL098 24 h range: ( 38 - 46 )SO299 24 h range: ( 96 - 99 )Base Excess4.1 24 h range: ( 0.9 - 4.1 )Csydqqbqxxv10.2 24 h range: ( 25.2 - 29.2 [...] recommendations -->- Consulted Endocrine for management of Colbert's and diabetes- Continue hydrocortisone- Maintain BG <180, [...] Proph:SCDsSubcutaneous heparinPPI G: LineLeft Filiberto Richey - markie Dispo: Continue SICU care.#[id number] Code Status: Code StatusFull Code SCIP:Urinary Catheter Removed Post-Op Day 2: noReason Patient Needs Her: Strict I&0Patient on Beta Danica Prior to Admission: noProphylactic antibiotics scheduled to be discontinued with 24 hr of anesthesiaend time (48 hr for cardiac surgery): yesType of VTE Prophylaxis Ordered: Subcutaneous heparin and SCDs Signature/Cosignature/Attest ation:Comments/ Additional Ytgfsvhq74o/o male s/p CABG x3 with Dr Gaston. [...] heparin Electronic Signatures:Abelino Klein) (Signed 02-Apr-2018 14:54)Authored: Signature/Cosignature/Attest Cristiano Guerrero (Resident)) (Signed 02-Apr-2018 08:39)Authored: Service, Subjective Data, Objective Data, Assessment and Plan Last Updated: 02-Apr-2018 14:54 by Abelino Klein) Normal [facility] Daily Progress Note-Endocrin ologyon 04-02-2018 Protein mass conc Consult Type: subseq uent visit/care Service: Endocrinology Subjective Data:DON ELKINS is a 67 year old Male who is Hospital Day # 16 and POD #2 for CABGx 3;-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 Objective Data: Objective Information: ---- Intake and Output -----Mn/Dy/Year TimeIntakeOutputNetNov 2017 2:00 [id number] 2017 6:00 [id number] 2017 10:00 [id number] The Intake and Output Totals for the last 24 hours are:[id number] 1 Physical Exam: Constitutional: Well developed, awake/alert/oriented x3, no distress, alert andcooperativeGastrointestin al: Nondistended, soft, non-tender, no rebound tenderness orguarding, no masses palpable, no organomegaly, +BS, no bruitsSkin: Warm and dry, no lesions, no rashes Medication: Medications: Continuous Medications ----No continuous medications are active Scheduled Medications ---- 1. Aspirin Enteric Coated: 81 mg Oral [...] Warfarin: 5 mg Oral Daily PRN Medications ---- 1. Bisacodyl Rectal: 10 mg Rectal Daily2. Dextrose 50% in Water Injectable: 25 gram(s) IntraVenous Push Every 97Yvjggxb0. Glucagon Injectable: 1 mg IntraMuscular Every 15 Minutes4. Ondansetron Injectable: 4 mg IntraVenous Push Every 6 Hours5. oxyCODONE Immediate Release: 5 mg Oral Every 4 Hours6. oxyCODONE Immediate Release: 10 mg Oral Every 4 Hours Currently Suspended Medications ---- 1. Lisinopril: 20 mg Oral Every Night Recent Lab Results: Results: I have reviewed these laboratory results: Glucose_POCT Trending View [id number]-[id number] 17:14:00 02-Apr-2018 11:05:00 02-Apr-2018 07:21:00 02-Apr-2018 03:09:00 01-Apr-2018 23:14:00 01-Apr-2018 19:21:00 33-Rsp-895347:19:00 01-Apr-2018 11:07:00 01-Apr-2018 07:27:00 01-Apr-2018 03:17:00 01-Apr-2018 00:07:00Glucose-PORV159 H 310 H 223 H 199 H 167 H 174 H 152H 181 H 228 H 168 H 175 H Renal Function Panel Trending View [id number]-[id number] 02:35:00 01-Apr-2018 18:56:00 01-Apr-2018 03:26:00Glucose, Tmcrf160 H 169 H 167 YZE411 L 134 L 137K4.1 4.2 4.4CL97 L 99 100Bicarbonate, Serum27 28 26Anion Gap, Serum13 11 60NTR02 20 70CBMXO8.21 1.35 H 1.30GFR-Non Rxfwgurr07 A 53 A 55 AGFR- Ntkheraf00 64 67Calcium, Serum8.5 L 8.8 8.7Phosphorus, Serum3.6 3.3 4.0ALB3.5 3.7 3.7 Cortisol P.M. Trending View Epywex94-Ido-0564 20:38:00 01-Apr-2018 18:56:00 01-Apr-2018 17:14:00Cortisol P.M.13.8 H 22.4 H 34.8 H Assessment and Plan:Assessment: Mr. Elkins is a 67 yo WM with no known history of CAD, who has a past medicalhistory of HTN, HLD, T2DM, Colbert's disease, hypothyroidism, COPD, AKASH onCPAP, prostate ca s/p prostatectomy in 2011, and psoriasis [facility] fr evaluation of Colbert disease and treatment periop Patient was on supra-therapeutic dose of HCT 20-0-20 , fludrocortisone 0.1 ,mgdailyPatient has uncontrolled HTN and uncontrolled BSIVC filter placed on 03/23 1. Colbert's Disease-- Fludrocortisone 0.05 mg 4 times weekly [...] @ 5 pmthen on make HCt PO 15 mg @ 8 am - 10 mg @ noon - 5 mg @ 5pmthen on 04/08- make HCt PO 10 mg @ 8 am - 5 mg @ noon - 2.5 mg @ 5pm 2. V2SL--emfvyvre Glargine today as : 20 units QHS and Lispro 6 TIDAC-ISS correction to 2 units per 50 >150--Will follow Please page with questions [phone] Patient seen and examined, plan discussed with Dr Quevedo Signature/Cosignature/Attest ation:Attending AttestationI saw and evaluated the patient. I [...] patient (as noted in the above attestation) [id number] Electronic Signatures:Starr Quevedo) (Signed 03-Apr-2018 15:53)Authored: Signature/Cosignature/Attest ationCo-Signer: Service, Subjective Data, Objective Data, Assessment and Plan,Signature/Cosignature/A ttestationHasmukh Stephenson (Resident)) (Signed 02-Apr-2018 17:27)Authored: Service, Subjective Data, Objective Data, Assessment and Plan,Signature/Cosignature/A ttestation Last Updated: 03-Apr-2018 15:53 by Starr Quevedo) Normal [facility] GLUCOSE-POCTon 04-02-2018 Glucose mass conc 200 mg/dL High 74 - 99 [facility] Comment on above: Performed By: #### E MRAD ####NO LOCATION NEEDED Glucose mass conc 137 mg/dL High 74 - 99 [facility] Comment on above: Performed By: #### E MRAD ####NO LOCATION NEEDED Glucose mass conc 310 mg/dL High 74 - 99 [facility] Comment on above: Result Comment: Glu2 : Fingertip - Capillar Performed By: #### E MRAD ####NO LOCATION NEEDED Glucose mass conc 223 mg/dL High 74 - 99 [facility] Comment on above: Result Comment: Glu2 : Fingertip - Capillar Performed By: #### E MRAD ####NO LOCATION NEEDED Glucose mass conc 199 mg/dL High 74 - 99 [facility] Comment on above: Performed By: #### E MRAD ####NO LOCATION NEEDED Glucose mass conc 167 mg/dL High 74 - 99 [facility] Comment on above: Performed By: #### E MRAD ####NO LOCATION NEEDED MAGNESIUMon 04-02-2018 Magnesium mass conc 1.88 mg/dL Normal 1.60 - 2.40 [facility] Comment on above: Performed By: #### E MRAD ####NO LOCATION NEEDED RENAL FUNCTION PANELon 04-02 Albumin mass conc 3.5 g/dL Normal 3.4 - 5.0 [facility] Comment on above: Performed By: #### E MRAD ####NO LOCATION NEEDED Anion gap 3 molar conc 13 mmol/L Normal 10 - 20 [facility] Comment on above: Performed By: #### E MRAD ####NO LOCATION NEEDED Calcium mass conc 8.5 mg/dL Low 8.6 - 10.6 [facility] Comment on above: Performed By: #### E MRAD ####NO LOCATION NEEDED Chloride molar conc 97 mmol/L Low 98 - 107 [facility] Comment on above: Performed By: #### E MRAD ####NO LOCATION NEEDED Creatinine mass conc 1.21 mg/dL Normal 0.50 - 1.30 [facility] Comment on above: Performed By: #### E MRAD ####NO LOCATION NEEDED GFR- AM. 73 mL/min/1.73m2 Normal >60 [facility] Comment on above: Result Comment: CALC ULATIONS OF ESTIMATED GFR ARE PERFORMED USING THE MDRD STUDY EQUATION FOR THE IDMS-TRACEABLE CREATININE METHODS. CLIN CHEM 2007;53:766-72 Performed By: #### E MRAD ####NO LOCATION NEEDED GFR-NON AM. 60 mL/min/1.73m2 Abnormal >60 [facility] Comment on above: Performed By: #### E MRAD ####NO LOCATION NEEDED Glucose mass conc 182 mg/dL High 74 - 99 [facility] Comment on above: Performed By: #### E MRAD ####NO LOCATION NEEDED HCO3 molar conc (Bld) 27 mmol/L Normal 21 - 32 [facility] Comment on above: Performed By: #### E MRAD ####NO LOCATION NEEDED Phosphate mass conc 3.6 mg/dL Normal 2.5 - 4.9 [facility] Comment on above: Result Comment: The performance characteristics of phosphorus testing in heparinized plasma have been validated by the individual laboratory site where testing is performed. Testing on heparinized plasma is not approved by the FDA; however, such approval is not necessary. Performed By: #### E MRAD ####NO LOCATION NEEDED Potassium molar conc 4.1 mmol/L Normal 3.5 - 5.3 [facility] Comment on above: Performed By: #### E MRAD ####NO LOCATION NEEDED Sodium molar conc 133 mmol/L Low 136 - 145 [facility] Comment on above: Performed By: #### E MRAD ####NO LOCATION NEEDED Urea nitrogen mass conc 21 mg/dL Normal 6 - 23 [facility] Comment on above: Performed By: #### E MRAD ####NO LOCATION NEEDED TH CHEST 1 VIEWon 04-02-2018 TH CHEST 1 VIEW Name: DON ELKINS STUDY:TH CHEST 1 VIEW; 04/02/2018 4:03 am INDICATION:Signs/Symptoms: AM rounds. COMPARISON:Chest radiograph from 04/01/2018 ORDERING CLINICIAN:TESSIE BYRD FINDINGS:Interval extubation and removal of enteric tube. Right IJ [place]-Ganzcatheter has also been removed. There has also [...] Electronically signed by: STANISLAV RADFORD MD Normal [facility] ARTERIAL FULL PANELon 2017 Anion gap 3 molar conc 10 mmol/L Normal 10 - 25 [facility] Comment on above: Performed By: #### E MRAD ####NO LOCATION NEEDED BASE EXCESS-BLOOD 1.9 mmol/L Normal -2.0 - 3.0 [facility] Comment on above: Performed By: #### E MRAD ####NO LOCATION NEEDED CALCIUM,IONIZED 1.12 mmol/L Normal 1.10 - 1.33 [facility] Comment on above: Performed By: #### E MRAD ####NO LOCATION NEEDED Chloride molar conc 100 mmol/L Normal 98 - 107 [facility] Comment on above: Performed By: #### E MRAD ####NO LOCATION NEEDED Glucose mass conc 151 mg/dL High 74 - 99 [facility] Comment on above: Performed By: #### E MRAD ####NO LOCATION NEEDED Hematocrit Auto Volume Fraction (Bld) 30.0 % Low 41.0 - 52.0 [facility] Comment on above: Performed By: #### E MRAD ####NO LOCATION NEEDED HGB,CALCULATED 10.2 g/dL Low 13.5 - 17.5 [facility] Comment on above: Performed By: #### E MRAD ####NO LOCATION NEEDED Lactate molar conc 2.3 mmol/L High 0.4 - 2.0 [facility] Comment on above: Performed By: #### E MRAD ####NO LOCATION NEEDED Oxygen ppres (BldA) 82 mm[Hg] Low 85 - 95 [facility] Comment on above: Performed By: #### E MRAD ####NO LOCATION NEEDED PCO2 41 mmHg Normal 38 - 42 [facility] Comment on above: Performed By: #### E MRAD ####NO LOCATION NEEDED pH (Bld) 7.42 [pH] Normal 7.38 - 7.42 [facility] Comment on above: Performed By: #### E MRAD ####NO LOCATION NEEDED Potassium molar conc 4.1 mmol/L Normal 3.5 - 5.3 [facility] Comment on above: Performed By: #### E MRAD ####NO LOCATION NEEDED RBC Auto #/vol (Bld) 26.6 mmol/L High 22.0 - 26.0 [facility] Comment on above: Performed By: #### E MRAD ####NO LOCATION NEEDED SO2 98 % Normal 94 - 100 [facility] Comment on above: Performed By: #### E MRAD ####NO LOCATION NEEDED Sodium molar conc 132 mmol/L Low 136 - 145 [facility] Comment on above: Performed By: #### E MRAD ####NO LOCATION NEEDED Anion gap 3 molar conc 8 mmol/L Low 10 - 25 [facility] Comment on above: Performed By: #### E MRAD ####NO LOCATION NEEDED BASE EXCESS-BLOOD 3.0 mmol/L Normal -2.0 - 3.0 [facility] Comment on above: Performed By: #### E MRAD ####NO LOCATION NEEDED CALCIUM,IONIZED 1.17 mmol/L Normal 1.10 - 1.33 [facility] Comment on above: Performed By: #### E MRAD ####NO LOCATION NEEDED Chloride molar conc 101 mmol/L Normal 98 - 107 [facility] Comment on above: Performed By: #### E MRAD ####NO LOCATION NEEDED Glucose mass conc 164 mg/dL High 74 - 99 [facility] Comment on above: Performed By: #### E MRAD ####NO LOCATION NEEDED Hematocrit Auto Volume Fraction (Bld) 29.0 % Low 41.0 - 52.0 [facility] Comment on above: Performed By: #### E MRAD ####NO LOCATION NEEDED HGB,CALCULATED 9.9 g/dL Low 13.5 - 17.5 [facility] Comment on above: Performed By: #### E MRAD ####NO LOCATION NEEDED Lactate molar conc 2.2 mmol/L High 0.4 - 2.0 [facility] Comment on above: Performed By: #### E MRAD ####NO LOCATION NEEDED Oxygen ppres (BldA) 75 mm[Hg] Low 85 - 95 [facility] Comment on above: Performed By: #### E MRAD ####NO LOCATION NEEDED PCO2 43 mmHg High 38 - 42 [facility] Comment on above: Performed By: #### E MRAD ####NO LOCATION NEEDED pH (Bld) 7.42 [pH] Normal 7.38 - 7.42 [facility] Comment on above: Performed By: #### E MRAD ####NO LOCATION NEEDED Potassium molar conc 4.3 mmol/L Normal 3.5 - 5.3 [facility] Comment on above: Performed By: #### E MRAD ####NO LOCATION NEEDED RBC Auto #/vol (Bld) 27.9 mmol/L High 22.0 - 26.0 [facility] Comment on above: Performed By: #### E MRAD ####NO LOCATION NEEDED SO2 97 % Normal 94 - 100 [facility] Comment on above: Performed By: #### E MRAD ####NO LOCATION NEEDED Sodium molar conc 133 mmol/L Low 136 - 145 [facility] Comment on above: Performed By: #### E MRAD ####NO LOCATION NEEDED Anion gap 3 molar conc 11 mmol/L Normal 10 - 25 [facility] Comment on above: Performed By: #### E MRAD ####NO LOCATION NEEDED BASE EXCESS-BLOOD 0.9 mmol/L Normal -2.0 - 3.0 [facility] Comment on above: Performed By: #### E MRAD ####NO LOCATION NEEDED CALCIUM,IONIZED 1.16 mmol/L Normal 1.10 - 1.33 [facility] Comment on above: Performed By: #### E MRAD ####NO LOCATION NEEDED Chloride molar conc 101 mmol/L Normal 98 - 107 [facility] Comment on above: Performed By: #### E MRAD ####NO LOCATION NEEDED Glucose mass conc 177 mg/dL High 74 - 99 [facility] Comment on above: Performed By: #### E MRAD ####NO LOCATION NEEDED Hematocrit Auto Volume Fraction (Bld) 31.0 % Low 41.0 - 52.0 [facility] Comment on above: Performed By: #### E MRAD ####NO LOCATION NEEDED HGB,CALCULATED 10.5 g/dL Low 13.5 - 17.5 [facility] Comment on above: Performed By: #### E MRAD ####NO LOCATION NEEDED Lactate molar conc 3.3 mmol/L High 0.4 - 2.0 [facility] Comment on above: Performed By: #### E MRAD ####NO LOCATION NEEDED Oxygen ppres (BldA) 73 mm[Hg] Low 85 - 95 [facility] Comment on above: Performed By: #### E MRAD ####NO LOCATION NEEDED PCO2 38 mmHg Normal 38 - 42 [facility] Comment on above: Performed By: #### E MRAD ####NO LOCATION NEEDED pH (Bld) 7.43 [pH] High 7.38 - 7.42 [facility] Comment on above: Performed By: #### E MRAD ####NO LOCATION NEEDED Potassium molar conc 4.2 mmol/L Normal 3.5 - 5.3 [facility] Comment on above: Performed By: #### E MRAD ####NO LOCATION NEEDED RBC Auto #/vol (Bld) 25.2 mmol/L Normal 22.0 - 26.0 [facility] Comment on above: Performed By: #### E MRAD ####NO LOCATION NEEDED SO2 96 % Normal 94 - 100 [facility] Comment on above: Performed By: #### E MRAD ####NO LOCATION NEEDED Sodium molar conc 133 mmol/L Low 136 - 145 [facility] Comment on above: Performed By: #### E MRAD ####NO LOCATION NEEDED Anion gap 3 molar conc 12 mmol/L Normal 10 - 25 [facility] Comment on above: Performed By: #### E MRAD ####NO LOCATION NEEDED BASE EXCESS-BLOOD 3.5 mmol/L High -2.0 - 3.0 [facility] Comment on above: Performed By: #### E MRAD ####NO LOCATION NEEDED CALCIUM,IONIZED 1.12 mmol/L Normal 1.10 - 1.33 [facility] Comment on above: Performed By: #### E MRAD ####NO LOCATION NEEDED Chloride molar conc 100 mmol/L Normal 98 - 107 [facility] Comment on above: Performed By: #### E MRAD ####NO LOCATION NEEDED Glucose mass conc 177 mg/dL High 74 - 99 [facility] Comment on above: Performed By: #### E MRAD ####NO LOCATION NEEDED Hematocrit Auto Volume Fraction (Bld) 32.0 % Low 41.0 - 52.0 [facility] Comment on above: Performed By: #### E MRAD ####NO LOCATION NEEDED HGB,CALCULATED 10.9 g/dL Low 13.5 - 17.5 [facility] Comment on above: Performed By: #### E MRAD ####NO LOCATION NEEDED Lactate molar conc 2.8 mmol/L High 0.4 - 2.0 [facility] Comment on above: Performed By: #### E MRAD ####NO LOCATION NEEDED Oxygen ppres (BldA) 85 mm[Hg] Normal 85 - 95 [facility] Comment on above: Performed By: #### E MRAD ####NO LOCATION NEEDED PCO2 44 mmHg High 38 - 42 [facility] Comment on above: Performed By: #### E MRAD ####NO LOCATION NEEDED pH (Bld) 7.42 [pH] Normal 7.38 - 7.42 [facility] Comment on above: Performed By: #### E MRAD ####NO LOCATION NEEDED Potassium molar conc 4.6 mmol/L Normal 3.5 - 5.3 [facility] Comment on above: Performed By: #### E MRAD ####NO LOCATION NEEDED RBC Auto #/vol (Bld) 28.5 mmol/L High 22.0 - 26.0 [facility] [facility] Comment on above: Performed By: #### E MRAD ####NO LOCATION NEEDED SO2 99 % Normal 94 - 100 [facility] Comment on above: Performed By: #### E MRAD ####NO LOCATION NEEDED Sodium molar conc 136 mmol/L Normal 136 - 145 [facility] Comment on above: Performed By: #### E MRAD ####NO LOCATION NEEDED Anion gap 3 molar conc 9 mmol/L Low 10 - 25 [facility] Comment on above: Performed By: #### E MRAD ####NO LOCATION NEEDED BASE EXCESS-BLOOD 2.4 mmol/L Normal -2.0 - 3.0 [facility] Comment on above: Performed By: #### E MRAD ####NO LOCATION NEEDED CALCIUM,IONIZED 1.10 mmol/L Normal 1.10 - 1.33 [facility] Comment on above: Performed By: #### E MRAD ####NO LOCATION NEEDED Chloride molar conc 102 mmol/L Normal 98 - 107 [facility] Comment on above: Performed By: #### E MRAD ####NO LOCATION NEEDED Glucose mass conc 166 mg/dL High 74 - 99 [facility] Comment on above: Performed By: #### E MRAD ####NO LOCATION NEEDED Hematocrit Auto Volume Fraction (Bld) 29.0 % Low 41.0 - 52.0 [facility] Comment on above: Performed By: #### E MRAD ####NO LOCATION NEEDED HGB,CALCULATED 9.9 g/dL Low 13.5 - 17.5 [facility] Comment on above: Performed By: #### E MRAD ####NO LOCATION NEEDED Lactate molar conc 3.1 mmol/L High 0.4 - 2.0 [facility] Comment on above: Performed By: #### E MRAD ####NO LOCATION NEEDED Oxygen ppres (BldA) 115 mm[Hg] High 85 - 95 [facility] Comment on above: Performed By: #### E MRAD ####NO LOCATION NEEDED PCO2 42 mmHg Normal 38 - 42 [facility] Comment on above: Performed By: #### E MRAD ####NO LOCATION NEEDED pH (Bld) 7.42 [pH] Normal 7.38 - 7.42 [facility] Comment on above: Performed By: #### E MRAD ####NO LOCATION NEEDED Potassium molar conc 4.4 mmol/L Normal 3.5 - 5.3 [facility] Comment on above: Performed By: #### E MRAD ####NO LOCATION NEEDED RBC Auto #/vol (Bld) 27.2 mmol/L High 22.0 - 26.0 [facility] Comment on above: Performed By: #### E MRAD ####NO LOCATION NEEDED SO2 99 % Normal 94 - 100 [facility] Comment on above: Performed By: #### E MRAD ####NO LOCATION NEEDED Sodium molar conc 134 mmol/L Low 136 - 145 [facility] Comment on above: Performed By: #### E MRAD ####NO LOCATION NEEDED Anion gap 3 molar conc 10 mmol/L Normal 10 - 25 [facility] Comment on above: Performed By: #### E MRAD ####NO LOCATION NEEDED BASE EXCESS-BLOOD 1.2 mmol/L Normal -2.0 - 3.0 [facility] Comment on above: Performed By: #### E MRAD ####NO LOCATION NEEDED CALCIUM,IONIZED 1.10 mmol/L Normal 1.10 - 1.33 [facility] Comment on above: Performed By: #### E MRAD ####NO LOCATION NEEDED Chloride molar conc 102 mmol/L Normal 98 - 107 [facility] Comment on above: Performed By: #### E MRAD ####NO LOCATION NEEDED Glucose mass conc 174 mg/dL High 74 - 99 [facility] Comment on above: Performed By: #### E MRAD ####NO LOCATION NEEDED Hematocrit Auto Volume Fraction (Bld) 30.0 % Low 41.0 - 52.0 [facility] Comment on above: Performed By: #### E MRAD ####NO LOCATION NEEDED HGB,CALCULATED 10.2 g/dL Low 13.5 - 17.5 [facility] Comment on above: Performed By: #### E MRAD ####NO LOCATION NEEDED Lactate molar conc 2.8 mmol/L High 0.4 - 2.0 [facility] Comment on above: Performed By: #### E MRAD ####NO LOCATION NEEDED Oxygen ppres (BldA) 133 mm[Hg] High 85 - 95 [facility] Comment on above: Performed By: #### E MRAD ####NO LOCATION NEEDED PCO2 41 mmHg Normal 38 - 42 [facility] Comment on above: Performed By: #### E MRAD ####NO LOCATION NEEDED pH (Bld) 7.41 [pH] Normal 7.38 - 7.42 [facility] Comment on above: Performed By: #### E MRAD ####NO LOCATION NEEDED Potassium molar conc 4.3 mmol/L Normal 3.5 - 5.3 [facility] Comment on above: Performed By: #### E MRAD ####NO LOCATION NEEDED RBC Auto #/vol (Bld) 26.0 mmol/L Normal 22.0 - 26.0 [facility] Comment on above: Performed By: #### E MRAD ####NO LOCATION NEEDED SO2 99 % Normal 94 - 100 [facility] Comment on above: Performed By: #### E MRAD ####NO LOCATION NEEDED Sodium molar conc 134 mmol/L Low 136 - 145 [facility] Comment on above: Performed By: #### E MRAD ####NO LOCATION NEEDED Anion gap 3 molar conc 13 mmol/L Normal 10 - 25 [facility] Comment on above: Performed By: #### E MRAD ####NO LOCATION NEEDED BASE EXCESS-BLOOD -0.2 mmol/L Normal -2.0 - 3.0 [facility] Comment on above: Performed By: #### E MRAD ####NO LOCATION NEEDED CALCIUM,IONIZED 1.09 mmol/L Low 1.10 - 1.33 [facility] Comment on above: Performed By: #### E MRAD ####NO LOCATION NEEDED Chloride molar conc 101 mmol/L Normal 98 - 107 [facility] Comment on above: Performed By: #### E MRAD ####NO LOCATION NEEDED Glucose mass conc 176 mg/dL High 74 - 99 [facility] Comment on above: Performed By: #### E MRAD ####NO LOCATION NEEDED Hematocrit Auto Volume Fraction (Bld) 37.0 % Low 41.0 - 52.0 [facility] Comment on above: Performed By: #### E MRAD ####NO LOCATION NEEDED HGB,CALCULATED 12.6 g/dL Low 13.5 - 17.5 [facility] Comment on above: Performed By: #### E MRAD ####NO LOCATION NEEDED Lactate molar conc 2.6 mmol/L High 0.4 - 2.0 [facility] Comment on above: Performed By: #### E MRAD ####NO LOCATION NEEDED Oxygen ppres (BldA) 91 mm[Hg] Normal 85 - 95 [facility] Comment on above: Performed By: #### E MRAD ####NO LOCATION NEEDED PCO2 41 mmHg Normal 38 - 42 [facility] Comment on above: Performed By: #### E MRAD ####NO LOCATION NEEDED pH (Bld) 7.39 [pH] Normal 7.38 - 7.42 [facility] Comment on above: Performed By: #### E MRAD ####NO LOCATION NEEDED Potassium molar conc 4.5 mmol/L Normal 3.5 - 5.3 [facility] Comment on above: Performed By: #### E MRAD ####NO LOCATION NEEDED RBC Auto #/vol (Bld) 24.8 mmol/L Normal 22.0 - 26.0 [facility] Comment on above: Performed By: #### E MRAD ####NO LOCATION NEEDED SO2 98 % Normal 94 - 100 [facility] Comment on above: Performed By: #### E MRAD ####NO LOCATION NEEDED Sodium molar conc 134 mmol/L Low 136 - 145 [facility] Comment on above: Performed By: #### E MRAD ####NO LOCATION NEEDED CALCIUM, IONIZEDon 11-14-201 8 CALCIUM,IONIZED 1.04 mmol/L Low 1.10 - 1.33 [facility] Comment on above: Result Comment: The performance [...] (RBC) 13.2 % Normal 11.5 - 14.5 [facility] Comment on above: Performed By: #### E MRAD ####NO LOCATION NEEDED Hematocrit Auto Volume Fraction (Bld) 29.9 % Low 41.0 - 52.0 [facility] Comment on above: Performed By: #### E MRAD ####NO LOCATION NEEDED Hemoglobin mass conc (Bld) 10.0 g/dL Low 13.5 - 17.5 [facility] Comment on above: Performed By: #### E MRAD ####NO LOCATION NEEDED MCHC Auto mass conc (RBC) 33.4 g/dL Normal 32.0 - 36.0 [facility] Comment on above: Performed By: #### E MRAD ####NO LOCATION NEEDED MCV Auto Entitic volume (RBC) 93 fL Normal 80 - 100 [facility] Comment on above: Performed By: #### E MRAD ####NO LOCATION NEEDED Nucleated RBC/100 WBC Ratio (Bld) 0.0 /100 WBC Normal 0.0-0.0 [facility] Comment on above: Performed By: #### E MRAD ####NO LOCATION NEEDED Platelets Auto #/vol (Bld) 144 10*3/uL Low 150 - 450 [facility] Comment on above: Performed By: #### E MRAD ####NO LOCATION NEEDED RBC Auto #/vol (Bld) 3.23 x10E12/L Low 4.50 - 5.90 [facility] Comment on above: Performed By: #### E MRAD ####NO LOCATION NEEDED WBC Auto #/vol (Bld) 11.4 10*3/uL High 4.4 - 11.3 [facility] Comment on above: Performed By: #### E MRAD ####NO LOCATION NEEDED Erythrocyte distribution width Auto Ratio (RBC) 13.1 % Normal 11.5 - 14.5 [facility] Comment on above: Performed By: #### E MRAD ####NO LOCATION NEEDED Hematocrit Auto Volume Fraction (Bld) 32.1 % Low 41.0 - 52.0 [facility] Comment on above: Performed By: #### E MRAD ####NO LOCATION NEEDED Hemoglobin mass conc (Bld) 10.9 g/dL Low 13.5 - 17.5 [facility] Comment on above: Performed By: #### E MRAD ####NO LOCATION NEEDED MCHC Auto mass conc (RBC) 34.0 g/dL Normal 32.0 - 36.0 [facility] Comment on above: Performed By: #### E MRAD ####NO LOCATION NEEDED MCV Auto Entitic volume (RBC) 92 fL Normal 80 - 100 [facility] Comment on above: Performed By: #### E MRAD ####NO LOCATION NEEDED Nucleated RBC/100 WBC Ratio (Bld) 0.0 /100 WBC Normal 0.0-0.0 [facility] Comment on above: Performed By: #### E MRAD ####NO LOCATION NEEDED Platelets Auto #/vol (Bld) 158 10*3/uL Normal 150 - 450 [facility] Comment on above: Performed By: #### E MRAD ####NO LOCATION NEEDED RBC Auto #/vol (Bld) 3.50 x10E12/L Low 4.50 - 5.90 [facility] Comment on above: Performed By: #### E MRAD ####NO LOCATION NEEDED WBC Auto #/vol (Bld) 9.7 10*3/uL Normal 4.4 - 11.3 [facility] Comment on above: Performed By: #### E MRAD ####NO LOCATION NEEDED COAGULATION SCREENon 04-01-2 018 aPTT Coag time (Bld) 25 s Low 28 - 38 [facility] Comment on above: Result Comment: Note new reference range as of 03/10/2018. THE APTT IS NO LONGER USED FOR MONITORING UNFRACTIONATED HEPARIN THERAPY. FOR MONITORING HEPARIN THERAPY, USE THE HEPARIN ASSAY. Performed By: #### E MRAD ####NO LOCATION NEEDED INR Coag RelTime (PPP) 1.3 {INR} High 0.9 - 1.1 [facility] Comment on above: Performed By: #### E MRAD ####NO LOCATION NEEDED Prothrombin time (PT) Coag time (PPP) 14.0 s High 9.7 - 12.7 [facility] Comment on above: Result Comment: Note new reference range as of 03/10/2018. Performed By: #### E MRAD ####NO LOCATION NEEDED CORTISOL, P.M.on 04-01-2018 CORTISOL, P.M. 22.4 ug/dL High 2.5 - 10.0 [facility] Comment on above: Performed By: #### E MRAD ####NO LOCATION NEEDED CORTISOL, P.M. 34.8 ug/dL High 2.5 - 10.0 [facility] Comment on above: Performed By: #### E [...] is well controlled. Objective Data: Objective InformationT [id number]/59 97%Date/Time04/01 4: 6: 6: 14: 6:00Range(36.5C - 37.9C [...] sec/cm-5)70(68 - 74)03/31 19:00 Direct Arterial Blood XhoeqztyQmzbsamc013(129 - 161)04/01 6:45Diastolic (mm Hg)67(53 - 70)04/01 6:45Mean (mm Hg)91(76 - 96)04/01 6:45Pulse Pressure (mm Hg)85(71 - 96)04/01 6:18Bkbnlpib760(129 - 161)04/01 6:45Diastolic (mm Hg)67(53 - 70)04/01 6:45Mean (mm Hg)91(76 - 96)04/01 6:45Pulse Pressure (mm Hg)85(71 - 96)04/01 6:45 WMLLngxkxjk38(27 - 39)04/01 6:00Diastolic (mm Hg)12(10 - 22)04/01 6:00Mean (mm Hg)18(18 - 29)04/01 6:00 ---- Intake and Output -----Mn/Dy/Year TimeIntakeOutputNetNov 2017 6:00 am991.4811427Vha 2017 10:00 nz9632.99907892Lsb 2017 2:00 pm000 The Intake and Output Totals for the last 24 hours are:[id number] 52 Drain and tube details (included in I&O totals)390 cc Chest Tube( 01-Apr-2018 06:00:00 )2160 cc Indwelling Catheter - Urethral( 01-Apr-2018 06:00:00 ) Physical Exam: Physical Exam:Neurological: Alert and oriented x3.Cardiovascular: Sinus tach 111. Midsternal incision with dressing CDI.Mediastinal chest tube x 2, left pleural chest tube x 1, draining minimalserosang. A-wires present, AAI @ 90. Right SVG site with lauren bandage intact.Pulses palpable throughout.Respiratory/Thora x: CTAB on 2L NC.Genitourinary: Her intact, draining [...] Cl- BUN / 137 100 20 / ----- Glucose ------ 167 H K+ HCO3- Creat \ 4.4 26 1.30 \Calcium : 8.7Anion Gap : 15 Albumin : 3.7 Phos : 4.0 Coagulation: 04/01/2018 03:26PT / 14.0 H /-------< INR < 1.3 HPTT\ 25 L \ Fibrinogen: Canceled Recent Arterial Blood Gas Results 04/01/2018 04:95pU554 24 h range: ( 63 - 392 )pH7.42 24 h range: ( 7.28 - 7.42 )jJC566 24 h range: ( 38 - 51 )SO299 24 h range: ( 91 - 100 )Base Excess3.5 24 h range: ( -4.5 - 3.5 )Epgtqjbxdyq07.5 24 h range: ( 22 - 28.5 [...] 04/01 -->- Consulted Endocrine for management of Colbert's and diabetes- Continue hydrocortisone- Maintain BG <180, [...] - dcLeft Filiberto Richey Dispo: Continue SICU care.#41723 Code Status: Code StatusFull Code SCIP:Urinary Catheter Removed Post-Op Day 2: noReason Patient Needs Her: Strict I&0Patient on Beta Danica Prior to Admission: noProphylactic antibiotics scheduled to be discontinued with 24 hr of anesthesiaend time (48 hr for cardiac surgery): yesType of VTE Prophylaxis Ordered: Subcutaneous heparin and SCDs Signature/Cosignature/Attest ation:Comments/ Additional Uzbmycex27v/o male s/p CABG x3 with Dr Gaston. [...] detail. Electronic Signatures:Abelino Klein) (Signed 01-Apr-2018 11:25)Authored: Signature/Cosignature/Attest ationSCristiano wells (Resident)) (Signed 01-Apr-2018 11:56)Authored: Service, Subjective Data, Objective Data, Assessment and Plan Last Updated: 01-Apr-2018 11:56 by Cristiano Wynne (Resident)) Normal [facility] Daily Progress Note-Endocrin ologyon 04-01-2018 Protein mass [...] Intake and Output -----Mn/Dy/Year TimeIntakeOutputNetNov 2017 6:00 am991.3180100Tab 2017 10:00 ol6567.94157834Scd 2017 2:00 pm000 The Intake and Output Totals for the last 24 hours are:[id number] 52 Physical Exam: Constitutional: Well developed, awake/alert/oriented x3, no distress, alert andcooperativeGastrointestin al: Nondistended, soft, non-tender, no rebound tenderness orguarding, no masses palpable, no organomegaly, +BS, no bruitsSkin: Warm and dry, no lesions, no rashes Assessment and Plan:Assessment: Mr. Elkins is a 67 yo WM with no known history of CAD, who has a past medicalhistory of HTN, HLD, T2DM, Colbert's disease, hypothyroidism, COPD, AKASH onCPAP, prostate ca s/p prostatectomy in 2011, and psoriasis who was [facility] fr evaluation of Colbert disease and treatment periop Patient was on supra-therapeutic dose of HCT 20-0-20 , fludrocortisone 0.1 ,mgdailyPatient has uncontrolled HTN and uncontrolled BSIVC filter placed on 03/23 1. Colbert's Disease-- Fludrocortisone 0.05 mg 4 times weekly [...] drawing blood at 9 pm--Will follow 2. N0OH--DRiqeo Glargine today as : 20 units QHS and L6 TIDAC-Please change ISS correction to 2 units per 50 >150--Will follow Please page with questions [phone] Patient seen and examined, plan discussed with Dr Quevedo Signature/Cosignature/Attest ation:Attending AttestationI saw and evaluated the patient. I [...] patient (as noted in the above attestation) [id number] Electronic Signatures:Starr Quevedo () (Signed 02-Apr-2018 10:02)Authored: Signature/Cosignature/Attest ationCo-Signer: Service, Subjective Data, Objective Data, Assessment and Plan,Signature/Cosignature/A ttestationHasmukh Stephenson (Resident)) (Signed 01-Apr-2018 15:26)Authored: Service, Subjective Data, Objective Data, Assessment and Plan,Signature/Cosignature/A ttestation Last Updated: 02-Apr-2018 10:02 by Starr Quevedo) Normal [facility] Discharge Fxbfrvx7gz 11-14-2 018 Protein mass conc Discharge Orders:Ant icipated Discharge Date: Anticipated Discharge [id number] Problem List: Prelim Disch Dx: History of Colbert's disease: Catalog Name: Personal history of otherendocrine, nutritional and metabolic disease Pulmonary embolism, bilateral: Catalog Name: Other pulmonary embolismwithout acute cor pulmonale S/P IVC filter: Onset Date: 23-Mar-2018, Catalog Name: Presence of othervascular implants and grafts, Description: by Severiano Stapleton at [facility] S/P CABG x 3: Onset Date: 31-Mar-2018, Catalog Name: Presence ofaortocoronary bypass graft, Description: by Jc Gaston at [facility] CAD (coronary artery disease): Catalog Name: Atherosclerotic heart diseaseof circle coronary artery without angina pectoris Significant Events:Surgical [...] have your follow up visit with your automotive design layout drafter. They will clear youto exercise and further refer you to an outpatient cardiac rehab facility. Labs 1: Lab Test(s)Basic Metabolic Panel, CBC, Magnesium Date To Be DrawnOnce the week following discharge by home care Call Results ToDr. Sal Sabillon and Dr. Levi Pisano CommentsINRs to be done by [facility] coumadin [facility] Oxygen:Other Instructions Incentive spirometer 10x/hr while awake. [...] obtained from the Primary Care Physician or Scientific Database Curator. - For chest tightness or pain, extreme [...] and symptoms of Heart Failure: call your Scientific Database Curator if you haveweight gain of 3 pounds or more in less than 3 days; shortness of breath atrest, with activity, or when lying flat; dizziness or fainting. Notify Cardiac Surgeon's office of any readmission to the hospital beforefollow-up appointment with Cardiac Surgeon. Diet: DietAdult Diabetic, Cardiac Hospital Course (Home Care/Gold Form):Hospital Course: Hospital Course: include significant abnormal lab elwumd64 yo WM with no prior history of CAD, who has a past medical history of HTN,HLD, T2DM, Colbert's disease, hypothyroidism, COPD, AKASH on CPAP, prostate Spring/p prostatectomy in 2011, and psoriasis who [facility] on 03/18 for CABG eval. Ptpresented to [place] with chest pressure and dyspnea. He as found to havebilat PEs, was started on Heparin gtt, and transferred to [facility]. He wasfound to have a troponin leak at 2.25. Cardiology was consulted and the patientwas diagnosed with ACS, NSTEMI. He underwent a TTE and cath. He had normal EF,mild AI, and triple vessel CAD so was transferred to [facility] for CABG eval.Pulm consulted for PE workup. Pt required unfractionated heparin infusion for7-10 days to take advantage of intrinsic fibrinolysis and clot stabilization,as well as an IVC filter.Endocrine consulted for evaluation of Colbert disease and treatment periop.Also managed DM. 03/23/2018 [...] post op volume overload with Lasix; preop filvry671.8 kg; day of discharge wt 107.5 kg- IVC filter was placed on 03/23 preop, will be following up with vascular forretrieval- heparin gtt bridge to coumadin was started per Dr. Gaston for unprovoked PEs asper Pulmonary recs; needs at least 6 months of anticoagulation; [facility]- PT recs home with PT- anticipate discharge home with home connect lpn and PT- personal development educator met with patient 04/07 to discuss discharge instructionsand care- patient had no complaints at discharge and all questions were answered ___ HISTORYPMH: HTN, HLD, T2DM, Colbert's disease, hypothyroidism, COPD, AKASH on CPAP,prostate ca s/p prostatectomy in 2011, psoriasis, remote hepatitis B, priorGERD, lumbar Degenerative disk disease, arthritis, kidney stones (current,small), cataract, plantar fasciitis PSH: prostatectomy 2011, R cataract surgery, cholecystectomy, appendectomy,sinus surgery, vasectomy, bilat carpal tunnel release surgery, ganglion cystremoval from hands, cystoscopy 2 weeks ago for microscopic hematuria, rootcanal 2 weeks ago. 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 [...] Care Agency: [facility] Ordered: RN/AIR MOTOR REPAIRER, PTFace to Face Encounter Completed: yesDate of Encounter: [id number] Necessity for Homecare (based on clinical findings):Short-term custodial is needed to monitor for signs and symptoms ofdecomposition/adverse events as s/p cardiac surgery. Patient at high risk forre-hospitalization.Physic al therapy services needed to restore ability to [...] Final Review of Medication Reconciliation and Orders Chikis LEE Reviewing ProviderTaylor ZACK Milligan at 07-Apr-2018 14:22:59 Name/Contact Info for Questions About Discharge OrdersDr Sy'sophie [phone] Appointments:Coumadin (Warfarin) Follow-Up Monitoring: Physician/Dept/Dyan [facility] Coumadin clinic Date/Time next PT/INR [id number] 13:45 Phone [phone]; [address] Please bring insurancecard, drivers license, and medication list CommentsPlease arrive at 1:45 PM for your appt. goal INR 2-3; need at least6 months of coumadin for PE; Dr Pisano is managing Follow-Up Appointment 01: Physician/Dept/Evgeny Gaston - cardiac surgeon Scheduled Date/[id number] 14:00 [facility] [address] [place] [address] - 2pm appointment [facility] [address] Phone NumberDr Sy's office [phone] Follow-Up Appointment 02: Physician/Dept/Trell. Sal Sabillon, PCP Scheduled Date/[id number] 11:00 [id number] [facility], [address], [place]. [address] Phone [phone] CommentsPlease arrive 10-15 minutes early, bring photo ID, insurance card,discharge summary, and list of current medications and dosages. If unable tokeep this appointment, please call to cancel. Follow-Up Appointment 03: Physician/Dept/Trell. Levi Pisano, Cardiology Scheduled Date/[id number] 14:30 [id number] [facility], [address], [place]. [address] [phone] Phone [phone] CommentsPlease arrive 10-15 minutes early, bring photo ID, insurance card,discharge summary, and list of current medications and dosages. If unable tokeep this appointment, please call to cancel. Follow-Up Appointment 04: Physician/Dept/Service. [place], Endocrinology Scheduled Date/[id number] 09:[address], [place]. [address] Phone [phone] CommentsPlease arrive 10-15 minutes early, bring photo ID, insurance card,discharge summary, and list of current medications and dosages. If unable tokeep this appointment, please call to cancel. Follow-Up Appointment 05: Physician/Dept/Service. Severiano Stapleton, Vascular Surgery Scheduled Date/[id number] 15:[address] [place] [address] Phone [phone] CommentsPlease arrive 10-15 minutes early, bring photo ID, insurance card,discharge summary, and list of current medications and dosages. If unable tokeep this appointment, please call to cancel. Electronic Signatures:Mary Munroe (LITHOGRAPH PRESS OPERATOR TINWARE-CUSTOMER SERVICE LEADER) (Signed 06-Apr-2018 18:53)Authored: Discharge Orders, CABG / Valve, Hospital Course (Home Care/GoldForm), Home Care Orders, Provider FINAL REVIEW of Orders, AppointmentsLillie Elder (CLIN COOR) (Signed 01-Apr-2018 14:23)Authored: Discharge Orders, Gold Form - Director Writing SummaryKarolina Foster (RN) (Signed 02-Apr-2018 13:41)Authored: Discharge OrdersMonet Alcaraz (PT SVS REP) (Signed 07-Apr-2018 14:04)Authored: Alexandra Correa (PAC) (Signed 07-Apr-2018 14:22)Authored: Discharge Orders, CABG / Valve, Hospital Course (Home Care/GoldForm), Home Care Orders, Provider FINAL REVIEW of Orders, Appointments Last Updated: 07-Apr-2018 14:22 by Alexandra Milligan (PAC) Normal [facility] GLUCOSE-POCTon 04-01-2018 Glucose mass conc 174 mg/dL High [address] [place] [address] Comment on above: Performed By: #### E MRAD ####NO LOCATION NEEDED Glucose mass conc 152 mg/dL [address] Comment on above: Result Comment: Glu2 : Fingertip - Capillar Performed By: #### E MRAD ####NO LOCATION NEEDED Glucose mass conc 181 mg/dL High [address] [place] [address] Comment on above: Result Comment: Glu2 : Fingertip - Capillar Performed By: #### E MRAD ####NO LOCATION NEEDED Glucose mass conc 228 mg/dL [address] Comment on above: Result Comment: Glu2 : Fingertip - Capillar Performed By: #### E MRAD ####NO LOCATION NEEDED Glucose mass conc 168 mg/dL High [address] [place] [address] Comment on above: Performed By: #### E MRAD ####NO LOCATION NEEDED Glucose mass conc 175 mg/dL High [address] [place] [address] Comment on above: Performed By: #### E MRAD ####NO LOCATION NEEDED Glucose mass conc 197 mg/dL High 74 - 99 [facility] Comment on above: Performed By: #### E MRAD ####NO LOCATION NEEDED MAGNESIUMon 04-01-2018 Magnesium mass conc 2.15 mg/dL Normal 1.60 - 2.40 [facility] Comment on above: Performed By: #### E MRAD ####NO LOCATION NEEDED Magnesium mass conc 2.30 mg/dL Normal 1.60 - 2.40 [facility] Comment on above: Performed By: #### E MRAD ####NO LOCATION NEEDED RENAL FUNCTION PANELon 04-01 Albumin mass conc 3.7 g/dL Normal 3.4 - 5.0 [facility] Comment on above: Performed By: #### E MRAD ####NO LOCATION NEEDED Anion gap 3 molar conc 11 mmol/L Normal 10 - 20 [facility] Comment on above: Performed By: #### E MRAD ####NO LOCATION NEEDED Calcium mass conc 8.8 mg/dL Normal 8.6 - 10.6 [facility] Comment on above: Performed By: #### E MRAD ####NO LOCATION NEEDED Chloride molar conc 99 mmol/L Normal 98 - 107 [facility] Comment on above: Performed By: #### E MRAD ####NO LOCATION NEEDED Creatinine mass conc 1.35 mg/dL High 0.50 - 1.30 [facility] Comment on above: Performed By: #### E MRAD ####NO LOCATION NEEDED GFR- AM. 64 mL/min/1.73m2 Normal >60 [facility] Comment on above: Result Comment: CALC ULATIONS OF ESTIMATED GFR ARE PERFORMED USING THE MDRD STUDY EQUATION FOR THE IDMS-TRACEABLE CREATININE METHODS. CLIN CHEM 2007;53:766-72 Performed By: #### E MRAD ####NO LOCATION NEEDED GFR-NON AM. 53 mL/min/1.73m2 Abnormal >60 [facility] Comment on above: Performed By: #### E MRAD ####NO LOCATION NEEDED Glucose mass conc 169 mg/dL High 74 - 99 [facility] Comment on above: Performed By: #### E MRAD ####NO LOCATION NEEDED HCO3 molar conc (Bld) 28 mmol/L Normal 21 - 32 [facility] Comment on above: Performed By: #### E MRAD ####NO LOCATION NEEDED Phosphate mass conc 3.3 mg/dL Normal 2.5 - 4.9 [facility] Comment on above: Result Comment: The performance characteristics of phosphorus testing in heparinized plasma have been validated by the individual laboratory site where testing is performed. Testing on heparinized plasma is not approved by the FDA; however, such approval is not necessary. Performed By: #### E MRAD ####NO LOCATION NEEDED Potassium molar conc 4.2 mmol/L Normal 3.5 - 5.3 [facility] Comment on above: Performed By: #### E MRAD ####NO LOCATION NEEDED Sodium molar conc 134 mmol/L Low 136 - 145 [facility] Comment on above: Performed By: #### E MRAD ####NO LOCATION NEEDED Urea nitrogen mass conc 20 mg/dL Normal 6 - 23 [facility] Comment on above: Performed By: #### E MRAD ####NO LOCATION NEEDED Albumin mass conc Canceled Normal [facility] Comment on above: Order Comment: TEST RENAL FUNCTION PANEL WAS CANCELLED, 04/01/2018 07:29 DUPLICATE ORDER. Performed By: #### E MRAD ####NO LOCATION NEEDED Anion gap 3 molar conc Canceled Normal [facility] Comment on above: Order Comment: TEST RENAL FUNCTION PANEL WAS CANCELLED, 04/01/2018 07:29 DUPLICATE ORDER. Performed By: #### E MRAD ####NO LOCATION NEEDED Calcium mass conc Canceled Normal [facility] Comment on above: Order Comment: TEST RENAL FUNCTION PANEL WAS CANCELLED, 04/01/2018 07:29 DUPLICATE ORDER. Performed By: #### E MRAD ####NO LOCATION NEEDED Chloride molar conc Canceled Normal [facility] Comment on above: Order Comment: TEST RENAL FUNCTION PANEL WAS CANCELLED, 04/01/2018 07:29 DUPLICATE ORDER. Performed By: #### E MRAD ####NO LOCATION NEEDED Creatinine mass conc Canceled Normal [facility] Comment on above: Order Comment: TEST RENAL FUNCTION PANEL WAS CANCELLED, 04/01/2018 07:29 DUPLICATE ORDER. Performed By: #### E MRAD ####NO LOCATION NEEDED GFR- AM. Canceled Normal [facility] Comment on above: Order Comment: TEST RENAL FUNCTION PANEL WAS CANCELLED, 04/01/2018 07:29 DUPLICATE ORDER. Result Comment: CALC ULATIONS OF ESTIMATED GFR ARE PERFORMED USING THE MDRD STUDY EQUATION FOR THE IDMS-TRACEABLE CREATININE METHODS. CLIN CHEM 2007;53:[id number] Performed By: #### E MRAD ####NO LOCATION NEEDED GFR-NON AM. Canceled Normal [facility] Comment on above: Order Comment: TEST RENAL FUNCTION PANEL WAS CANCELLED, 04/01/2018 07:29 DUPLICATE ORDER. Performed By: #### E MRAD ####NO LOCATION NEEDED Glucose mass conc Canceled Normal [facility] Comment on above: Order Comment: TEST RENAL FUNCTION PANEL WAS CANCELLED, 04/01/2018 07:29 DUPLICATE ORDER. Performed By: #### E MRAD ####NO LOCATION NEEDED HCO3 molar conc (Bld) Canceled Normal [facility] Comment on above: Order Comment: TEST RENAL FUNCTION PANEL WAS CANCELLED, 04/01/2018 07:29 DUPLICATE ORDER. Performed By: #### E MRAD ####NO LOCATION NEEDED Phosphate mass conc Canceled Normal [facility] Comment on above: Order Comment: TEST RENAL [...] LOCATION NEEDED Potassium molar conc Canceled Normal [facility] Comment on above: Order Comment: TEST RENAL FUNCTION PANEL WAS CANCELLED, 04/01/2018 07:29 DUPLICATE ORDER. Performed By: #### E MRAD ####NO LOCATION NEEDED Sodium molar conc Canceled Normal [facility] Comment on above: Order Comment: TEST RENAL FUNCTION PANEL WAS CANCELLED, 04/01/2018 07:29 DUPLICATE ORDER. Performed By: #### E MRAD ####NO LOCATION NEEDED Urea nitrogen mass conc Canceled Normal [facility] Comment on above: Order Comment: TEST RENAL FUNCTION PANEL WAS CANCELLED, 04/01/2018 07:29 DUPLICATE ORDER. Performed By: #### E MRAD ####NO LOCATION NEEDED Albumin mass conc 3.7 g/dL Normal 3.4 - 5.0 [facility] Comment on above: Performed By: #### E MRAD ####NO LOCATION NEEDED Anion gap 3 molar conc 15 mmol/L Normal 10 - 20 [facility] Comment on above: Performed By: #### E MRAD ####NO LOCATION NEEDED Calcium mass conc 8.7 mg/dL Normal 8.6 - 10.6 [facility] Comment on above: Performed By: #### E MRAD ####NO LOCATION NEEDED Chloride molar conc 100 mmol/L Normal 98 - 107 [facility] Comment on above: Performed By: #### E MRAD ####NO LOCATION NEEDED Creatinine mass conc 1.30 mg/dL Normal 0.50 - 1.30 [facility] Comment on above: Performed By: #### E MRAD ####NO LOCATION NEEDED GFR- AM. 67 mL/min/1.73m2 Normal >60 [facility] Comment on above: Result Comment: CALC ULATIONS OF ESTIMATED GFR ARE PERFORMED USING THE MDRD STUDY EQUATION FOR THE IDMS-TRACEABLE CREATININE METHODS. CLIN CHEM 2007;53:[id number] Performed By: #### E MRAD ####NO LOCATION NEEDED GFR-NON AM. 55 mL/min/1.73m2 Abnormal >60 [facility] Comment on above: Performed By: #### E MRAD ####NO LOCATION NEEDED Glucose mass conc 167 mg/dL High 74 - 99 [facility] Comment on above: Performed By: #### E MRAD ####NO LOCATION NEEDED HCO3 molar conc (Bld) 26 mmol/L Normal 21 - 32 [facility] Comment on above: Performed By: #### E MRAD ####NO LOCATION NEEDED Phosphate mass conc 4.0 mg/dL Normal 2.5 - 4.9 [facility] Comment on above: Result Comment: The performance characteristics of phosphorus testing in heparinized plasma have been validated by the individual laboratory site where testing is performed. Testing on heparinized plasma is not approved by the FDA; however, such approval is not necessary. Performed By: #### E MRAD ####NO LOCATION NEEDED Potassium molar conc 4.4 mmol/L Normal 3.5 - 5.3 [facility] Comment on above: Performed By: #### E MRAD ####NO LOCATION NEEDED Sodium molar conc 137 mmol/L Normal 136 - 145 [facility] Comment on above: Performed By: #### E MRAD ####NO LOCATION NEEDED Urea nitrogen mass conc 20 mg/dL Normal 6 - 23 [facility] Comment on above: Performed By: #### E MRAD ####NO LOCATION NEEDED TH CHEST 1 VIEWon 04-01-2018 TH CHEST 1 VIEW Name: DON ELKINS STUDY:TH CHEST 1 VIEW; 04/01/2018 3:56 am INDICATION:Signs/Symptoms: CT surgey. COMPARISON:03/31/2018 ORDERING CLINICIAN:GERMAN JACK FINDINGS:ET tube is terminating at the level of clavicle heads. Enteric tubeis in place with the tip not included. Right IJ [place] catheter isterminating in the right main pulmonary [...] Electronically signed by: EDYTA ARIAS MD Normal [facility] ACT-HIGH RANGEon 03-31-2018 ACT-HIGH RANGE 111 SECONDS Normal 91 - 152 [facility] Comment on above: Performed By: #### E MRAD ####NO LOCATION NEEDED ACT-HIGH RANGE 456 SECONDS High 91 - 152 [facility] Comment on above: Performed By: #### E MRAD ####NO LOCATION NEEDED ACT-HIGH RANGE 415 SECONDS High 91 - 152 [facility] Comment on above: Performed By: #### E MRAD ####NO LOCATION NEEDED ACT-HIGH RANGE 555 SECONDS High 91 - 152 [facility] Comment on above: Performed By: #### E MRAD ####NO LOCATION NEEDED ACT-HIGH RANGE 440 SECONDS High 91 - 152 [facility] Comment on above: Performed By: #### E MRAD ####NO LOCATION NEEDED ACT-HIGH RANGE 437 SECONDS High 91 - 152 [facility] Comment on above: Performed By: #### E MRAD ####NO LOCATION NEEDED ACT-HIGH RANGE 117 SECONDS Normal 91 - 152 [facility] Comment on above: Performed By: #### E MRAD ####NO LOCATION NEEDED ARTERIAL BLOOD GASon 018 BASE EXCESS-BLOOD -3.2 mmol/L Low -2.0 - 3.0 [facility] Comment on above: Performed By: #### E MRAD ####NO LOCATION NEEDED Oxygen ppres (BldA) 63 mm[Hg] Low 85 - 95 [facility] Comment on above: Performed By: #### E MRAD ####NO LOCATION NEEDED PCO2 51 mmHg High 38 - 42 [facility] Comment on above: Performed By: #### E MRAD ####NO LOCATION NEEDED pH (Bld) 7.28 [pH] Low 7.38 - 7.42 [facility] Comment on above: Performed By: #### E MRAD ####NO LOCATION NEEDED RBC Auto #/vol (Bld) 24.0 mmol/L Normal 22.0 - 26.0 [facility] Comment on above: Performed By: #### E MRAD ####NO LOCATION NEEDED SO2 91 % Low 94 - 100 [facility] Comment on above: Performed By: #### E MRAD ####NO LOCATION NEEDED ARTERIAL FULL PANELon 2017 Anion gap 3 molar conc 9 mmol/L Low 10 - 25 [facility] Comment on above: Performed By: #### E MRAD ####NO LOCATION NEEDED BASE EXCESS-BLOOD 0.3 mmol/L Normal -2.0 - 3.0 [facility] Comment on above: Performed By: #### E MRAD ####NO LOCATION NEEDED CALCIUM,IONIZED 1.09 mmol/L Low 1.10 - 1.33 [facility] Comment on above: Performed By: #### E MRAD ####NO LOCATION NEEDED Chloride molar conc 103 mmol/L Normal 98 - 107 [facility] Comment on above: Performed By: #### E MRAD ####NO LOCATION NEEDED Glucose mass conc 159 mg/dL High 74 - 99 [facility] Comment on above: Performed By: #### E MRAD ####NO LOCATION NEEDED Hematocrit Auto Volume Fraction (Bld) 32.0 % Low 41.0 - 52.0 [facility] Comment on above: Performed By: #### E MRAD ####NO LOCATION NEEDED HGB,CALCULATED 10.9 g/dL Low 13.5 - 17.5 [facility] Comment on above: Performed By: #### E MRAD ####NO LOCATION NEEDED Lactate molar conc 2.4 mmol/L High 0.4 - 2.0 [facility] Comment on above: Performed By: #### E MRAD ####NO LOCATION NEEDED Oxygen ppres (BldA) 82 mm[Hg] Low 85 - 95 [facility] Comment on above: Performed By: #### E MRAD ####NO LOCATION NEEDED PCO2 42 mmHg Normal 38 - 42 [facility] Comment on above: Performed By: #### E MRAD ####NO LOCATION NEEDED pH (Bld) 7.39 [pH] Normal 7.38 - 7.42 [facility] Comment on above: Performed By: #### E MRAD ####NO LOCATION NEEDED Potassium molar conc 4.5 mmol/L Normal 3.5 - 5.3 [facility] Comment on above: Performed By: #### E MRAD ####NO LOCATION NEEDED RBC Auto #/vol (Bld) 25.4 mmol/L Normal 22.0 - 26.0 [facility] Comment on above: Performed By: #### E MRAD ####NO LOCATION NEEDED SO2 98 % Normal 94 - 100 [facility] Comment on above: Performed By: #### E MRAD ####NO LOCATION NEEDED Sodium molar conc 133 mmol/L Low 136 - 145 [facility] Comment on above: Performed By: #### E MRAD ####NO LOCATION NEEDED Anion gap 3 molar conc 11 mmol/L Normal 10 - 25 [facility] Comment on above: Performed By: #### E MRAD ####NO LOCATION NEEDED BASE EXCESS-BLOOD -0.5 mmol/L Normal -2.0 - 3.0 [facility] Comment on above: Performed By: #### E MRAD ####NO LOCATION NEEDED CALCIUM,IONIZED 1.13 mmol/L Normal 1.10 - 1.33 [facility] Comment on above: Performed By: #### E MRAD ####NO LOCATION NEEDED Chloride molar conc 104 mmol/L Normal 98 - 107 [facility] Comment on above: Performed By: #### E MRAD ####NO LOCATION NEEDED Glucose mass conc 169 mg/dL High 74 - 99 [facility] Comment on above: Performed By: #### E MRAD ####NO LOCATION NEEDED Hematocrit Auto Volume Fraction (Bld) 32.0 % Low 41.0 - 52.0 [facility] Comment on above: Performed By: #### E MRAD ####NO LOCATION NEEDED HGB,CALCULATED 10.9 g/dL Low 13.5 - 17.5 [facility] Comment on above: Performed By: #### E MRAD ####NO LOCATION NEEDED Lactate molar conc 2.5 mmol/L High 0.4 - 2.0 [facility] Comment on above: Performed By: #### E MRAD ####NO LOCATION NEEDED Oxygen ppres (BldA) 72 mm[Hg] Low 85 - 95 [facility] Comment on above: Performed By: #### E MRAD ####NO LOCATION NEEDED PCO2 43 mmHg High 38 - 42 [facility] Comment on above: Performed By: #### E MRAD ####NO LOCATION NEEDED pH (Bld) 7.37 [pH] Low 7.38 - 7.42 [facility] Comment on above: Performed By: #### E MRAD ####NO LOCATION NEEDED Potassium molar conc 4.8 mmol/L Normal 3.5 - 5.3 [facility] Comment on above: Performed By: #### E MRAD ####NO LOCATION NEEDED RBC Auto #/vol (Bld) 24.9 mmol/L Normal 22.0 - 26.0 [facility] Comment on above: Performed By: #### E MRAD ####NO LOCATION NEEDED SO2 96 % Normal 94 - 100 [facility] Comment on above: Performed By: #### E MRAD ####NO LOCATION NEEDED Sodium molar conc 135 mmol/L Low 136 - 145 [facility] Comment on above: Performed By: #### E MRAD ####NO LOCATION NEEDED Anion gap 3 molar conc 14 mmol/L Normal 10 - 25 [facility] Comment on above: Performed By: #### E MRAD ####NO LOCATION NEEDED BASE EXCESS-BLOOD -1.6 mmol/L Normal -2.0 - 3.0 [facility] Comment on above: Performed By: #### E MRAD ####NO LOCATION NEEDED CALCIUM,IONIZED 1.19 mmol/L Normal 1.10 - 1.33 [facility] Comment on above: Performed By: #### E MRAD ####NO LOCATION NEEDED Chloride molar conc 104 mmol/L Normal 98 - 107 [facility] Comment on above: Performed By: #### E MRAD ####NO LOCATION NEEDED Glucose mass conc 184 mg/dL High 74 - 99 [facility] Comment on above: Performed By: #### E MRAD ####NO LOCATION NEEDED Hematocrit Auto Volume Fraction (Bld) 32.0 % Low 41.0 - 52.0 [facility] Comment on above: Performed By: #### E MRAD ####NO LOCATION NEEDED HGB,CALCULATED 10.9 g/dL Low 13.5 - 17.5 [facility] Comment on above: Performed By: #### E MRAD ####NO LOCATION NEEDED Lactate molar conc 2.9 mmol/L High 0.4 - 2.0 [facility] Comment on above: Performed By: #### E MRAD ####NO LOCATION NEEDED Oxygen ppres (BldA) 79 mm[Hg] Low 85 - 95 [facility] Comment on above: Performed By: #### E MRAD ####NO LOCATION NEEDED PCO2 45 mmHg High 38 - 42 [facility] Comment on above: Performed By: #### E MRAD ####NO LOCATION NEEDED pH (Bld) 7.34 [pH] Low 7.38 - 7.42 [facility] Comment on above: Performed By: #### E MRAD ####NO LOCATION NEEDED Potassium molar conc 5.2 mmol/L Normal 3.5 - 5.3 [facility] Comment on above: Performed By: #### E MRAD ####NO LOCATION NEEDED RBC Auto #/vol (Bld) 24.3 mmol/L Normal 22.0 - 26.0 [facility] Comment on above: Performed By: #### E MRAD ####NO LOCATION NEEDED SO2 97 % Normal 94 - 100 [facility] Comment on above: Performed By: #### E MRAD ####NO LOCATION NEEDED Sodium molar conc 137 mmol/L Normal 136 - 145 [facility] Comment on above: Performed By: #### E MRAD ####NO LOCATION NEEDED Anion gap 3 molar conc 12 mmol/L Normal 10 - 25 [facility] Comment on above: Performed By: #### E MRAD ####NO LOCATION NEEDED BASE EXCESS-BLOOD -1.3 mmol/L Normal -2.0 - 3.0 [facility] Comment on above: Performed By: #### E MRAD ####NO LOCATION NEEDED CALCIUM,IONIZED 1.21 mmol/L Normal 1.10 - 1.33 [facility] Comment on above: Performed By: #### E MRAD ####NO LOCATION NEEDED Chloride molar conc 104 mmol/L Normal 98 - 107 [facility] Comment on above: Performed By: #### E MRAD ####NO LOCATION NEEDED Glucose mass conc 177 mg/dL High 74 - 99 [facility] Comment on above: Performed By: #### E MRAD ####NO LOCATION NEEDED Hematocrit Auto Volume Fraction (Bld) 29.0 % Low 41.0 - 52.0 [facility] Comment on above: Performed By: #### E MRAD ####NO LOCATION NEEDED HGB,CALCULATED 9.9 g/dL Low 13.5 - 17.5 [facility] Comment on above: Performed By: #### E MRAD ####NO LOCATION NEEDED Lactate molar conc 2.7 mmol/L High 0.4 - 2.0 [facility] Comment on above: Performed By: #### E MRAD ####NO LOCATION NEEDED Oxygen ppres (BldA) 67 mm[Hg] Low 85 - 95 [facility] Comment on above: Performed By: #### E MRAD ####NO LOCATION NEEDED PCO2 50 mmHg High 38 - 42 [facility] Comment on above: Performed By: #### E MRAD ####NO LOCATION NEEDED pH (Bld) 7.31 [pH] Low 7.38 - 7.42 [facility] Comment on above: Performed By: #### E MRAD ####NO LOCATION NEEDED Potassium molar conc 5.1 mmol/L Normal 3.5 - 5.3 [facility] Comment on above: Performed By: #### E MRAD ####NO LOCATION NEEDED RBC Auto #/vol (Bld) 25.2 mmol/L Normal 22.0 - 26.0 [facility] Comment on above: Performed By: #### E MRAD ####NO LOCATION NEEDED SO2 94 % Normal 94 - 100 [facility] Comment on above: Performed By: #### E MRAD ####NO LOCATION NEEDED Sodium molar conc 136 mmol/L Normal 136 - 145 [facility] Comment on above: Performed By: #### E MRAD ####NO LOCATION NEEDED Anion gap 3 molar conc 12 mmol/L Normal 10 - 25 [facility] Comment on above: Performed By: #### E MRAD ####NO LOCATION NEEDED BASE EXCESS-BLOOD -2.7 mmol/L Low -2.0 - 3.0 [facility] Comment on above: Performed By: #### E MRAD ####NO LOCATION NEEDED CALCIUM,IONIZED 1.16 mmol/L Normal 1.10 - 1.33 [facility] Comment on above: Performed By: #### E MRAD ####NO LOCATION NEEDED Chloride molar conc 105 mmol/L Normal 98 - 107 [facility] Comment on above: Performed By: #### E MRAD ####NO LOCATION NEEDED FIO2 67 % Normal [facility] Comment on above: Performed By: #### E MRAD ####NO LOCATION NEEDED Glucose mass conc 198 mg/dL High 74 - 99 [facility] Comment on above: Performed By: #### E MRAD ####NO LOCATION NEEDED Hematocrit Auto Volume Fraction (Bld) 30.0 % Low 41.0 - 52.0 [facility] Comment on above: Performed By: #### E MRAD ####NO LOCATION NEEDED HGB,CALCULATED 10.2 g/dL Low 13.5 - 17.5 [facility] Comment on above: Performed By: #### E MRAD ####NO LOCATION NEEDED Lactate molar conc 3.3 mmol/L High 0.4 - 2.0 [facility] Comment on above: Performed By: #### E MRAD ####NO LOCATION NEEDED Oxygen ppres (BldA) 97 mm[Hg] High 85 - 95 [facility] Comment on above: Performed By: #### E MRAD ####NO LOCATION NEEDED PCO2 40 mmHg Normal 38 - 42 [facility] Comment on above: Performed By: #### E MRAD ####NO LOCATION NEEDED pH (Bld) 7.36 [pH] Low 7.38 - 7.42 [facility] Comment on above: Performed By: #### E MRAD ####NO LOCATION NEEDED Potassium molar conc 5.1 mmol/L Normal 3.5 - 5.3 [facility] Comment on above: Performed By: #### E MRAD ####NO LOCATION NEEDED RBC Auto #/vol (Bld) 22.6 mmol/L Normal 22.0 - 26.0 [facility] Comment on above: Performed By: #### E MRAD ####NO LOCATION NEEDED SO2 99 % Normal 94 - 100 [facility] Comment on above: Performed By: #### E MRAD ####NO LOCATION NEEDED Sodium molar conc 134 mmol/L Low 136 - 145 [facility] Comment on above: Performed By: #### E MRAD ####NO LOCATION NEEDED Anion gap 3 molar conc 13 mmol/L Normal 10 - 25 [facility] Comment on above: Performed By: #### A FPA3 ####[id number] [place] [address] BASE EXCESS-BLOOD -3.0 mmol/L Low -2.0 - 3.0 [facility] Comment on above: Performed By: #### A FPA3 ####[id number] [place] [address] CALCIUM,IONIZED 1.16 mmol/L Normal 1.10 - 1.33 [facility] Comment on above: Performed By: #### A FPA3 ####[id number] [place] [address] Chloride molar conc 104 mmol/L Normal 98 - 107 [facility] Comment on above: Performed By: #### A FPA3 ####[id number] [place] [address] FIO2 67 % Normal [facility] Comment on above: Performed By: #### A FPA3 ####[id number] [place] [address] Glucose mass conc 189 mg/dL High 74 - 99 [facility] Comment on above: Performed By: #### A FPA3 ####[id number] [place] [address] Hematocrit Auto Volume Fraction (Bld) 31.0 % Low 41.0 - 52.0 [facility] Comment on above: Performed By: #### A FPA3 ####[id number] [place] [address] HGB,CALCULATED 10.5 g/dL Low 13.5 - 17.5 [facility] Comment on above: Performed By: #### A FPA3 ####[id number] [place] [address] Lactate molar conc 3.9 mmol/L High 0.4 - 2.0 [facility] Comment on above: Performed By: #### A FPA3 ####[id number] [place] [address] Oxygen ppres (BldA) 105 mm[Hg] High 85 - 95 [facility] Comment on above: Performed By: #### A FPA3 ####[id number] [place] [address] PCO2 38 mmHg Normal 38 - 42 [facility] Comment on above: Performed By: #### A FPA3 ####[id number] [place] [address] pH (Bld) 7.37 [pH] Low 7.38 - 7.42 [facility] Comment on above: Performed By: #### A FPA3 ####[id number] [place] [address] Potassium molar conc 5.0 mmol/L Normal 3.5 - 5.3 [facility] Comment on above: Performed By: #### A FPA3 ####[id number] [place] [address] RBC Auto #/vol (Bld) 22.0 mmol/L Normal 22.0 - 26.0 [facility] Comment on above: Performed By: #### A FPA3 ####[id number] [place] [address] SO2 99 % Normal 94 - 100 [facility] Comment on above: Performed By: #### A FPA3 ####[id number] [place] [address] Sodium molar conc 134 mmol/L Low 136 - 145 [facility] Comment on above: Performed By: #### A FPA3 ####[id number] [place] [address] Anion gap 3 molar conc 12 mmol/L Normal 10 - 25 [facility] Comment on above: Performed By: #### A FPA3 ####[id number] [place] [address] BASE EXCESS-BLOOD -4.5 mmol/L Low -2.0 - 3.0 [facility] Comment on above: Performed By: #### A FPA3 ####[id number] [place] [address] CALCIUM,IONIZED 1.28 mmol/L Normal 1.10 - 1.33 [facility] Comment on above: Performed By: #### A FPA3 ####[id number] [place] [address] Chloride molar conc 105 mmol/L Normal 98 - 107 [facility] Comment on above: Performed By: #### A FPA3 ####[id number] [place] [address] FIO2 94 % Normal [facility] Comment on above: Performed By: #### A FPA3 ####[id number] [place] [address] Glucose mass conc 208 mg/dL High 74 - 99 [facility] Comment on above: Performed By: #### A FPA3 ####[id number] [place] [address] Hematocrit Auto Volume Fraction (Bld) 30.0 % Low 41.0 - 52.0 [facility] Comment on above: Performed By: #### A FPA3 ####[id number] [place] [address] HGB,CALCULATED 10.2 g/dL Low 13.5 - 17.5 [facility] Comment on above: Performed By: #### A FPA3 ####[id number] [place] [address] Lactate molar conc 4.0 mmol/L Critically high 0.4 - 2.0 [facility] Comment on above: Performed By: #### A FPA3 ####[id number] [place] [address] Oxygen ppres (BldA) 243 mm[Hg] High 85 - 95 [facility] Comment on above: Performed By: #### A FPA3 ####[id number] [place] [address] PCO2 46 mmHg High 38 - 42 [facility] Comment on above: Performed By: #### A FPA3 ####[id number] [place] [address] pH (Bld) 7.29 [pH] Low 7.38 - 7.42 [facility] Comment on above: Performed By: #### A FPA3 ####[id number] [place] [address] Potassium molar conc 4.8 mmol/L Normal 3.5 - 5.3 [facility] Comment on above: Performed By: #### A FPA3 ####[id number] [place] [address] RBC Auto #/vol (Bld) 22.1 mmol/L Normal 22.0 - 26.0 [facility] Comment on above: Performed By: #### A FPA3 ####[id number] [place] [address] SO2 100 % Normal 94 - 100 [facility] Comment on above: Performed By: #### A FPA3 ####[id number] [place] [address] Sodium molar conc 134 mmol/L Low 136 - 145 [facility] Comment on above: Performed By: #### A FPA3 ####[id number] [place] [address] Anion gap 3 molar conc 11 mmol/L Normal 10 - 25 [facility] Comment on above: Performed By: #### A FPA3 ####[id number] [place] [address] BASE EXCESS-BLOOD -2.9 mmol/L Low -2.0 - 3.0 [facility] Comment on above: Performed By: #### A FPA3 ####[id number] [place] [address] CALCIUM,IONIZED 1.04 mmol/L Low 1.10 - 1.33 [facility] Comment on above: Performed By: #### A FPA3 ####[id number] [place] [address] Chloride molar conc 104 mmol/L Normal 98 - 107 [facility] Comment on above: Performed By: #### A FPA3 ####[id number] [place] [address] FIO2 80 % Normal [facility] Comment on above: Performed By: #### A FPA3 ####[id number] [place] [address] Glucose mass conc 251 mg/dL High 74 - 99 [facility] Comment on above: Performed By: #### A FPA3 ####[id number] [place] [address] Hematocrit Auto Volume Fraction (Bld) 29.0 % Low 41.0 - 52.0 [facility] Comment on above: Performed By: #### A FPA3 ####[id number] [place] [address] HGB,CALCULATED 9.9 g/dL Low 13.5 - 17.5 [facility] Comment on above: Performed By: #### A FPA3 ####[id number] [place] [address] Lactate molar conc 4.0 mmol/L Critically high 0.4 - 2.0 [facility] Comment on above: Performed By: #### A FPA3 ####[id number] [place] [address] Oxygen ppres (BldA) 252 mm[Hg] High 85 - 95 [facility] Comment on above: Performed By: #### A FPA3 ####[id number] [place] [address] PCO2 41 mmHg Normal 38 - 42 [facility] Comment on above: Performed By: #### A FPA3 ####[id number] [place] [address] pH (Bld) 7.35 [pH] Low 7.38 - 7.42 [facility] Comment on above: Performed By: #### A FPA3 ####[id number] [place] [address] Potassium molar conc 6.1 mmol/L Critically high 3.5 - 5.3 [facility] Comment on above: Performed By: #### A FPA3 ####[id number] [place] [address] RBC Auto #/vol (Bld) 22.6 mmol/L Normal 22.0 - 26.0 [facility] Comment on above: Performed By: #### A FPA3 ####[id number] [place] [address] SO2 99 % Normal 94 - 100 [facility] Comment on above: Performed By: #### A FPA3 ####[id number] [place] [address] Sodium molar conc 131 mmol/L Low 136 - 145 [facility] Comment on above: Performed By: #### A FPA3 ####[id number] [place] [address] Anion gap 3 molar conc 12 mmol/L Normal 10 - 25 [facility] Comment on above: Performed By: #### A FPA3 ####[id number] [place] [address] BASE EXCESS-BLOOD -2.2 mmol/L Low -2.0 - 3.0 [facility] Comment on above: Performed By: #### A FPA3 ####[id number] [place] [address] CALCIUM,IONIZED 1.04 mmol/L Low 1.10 - 1.33 [facility] Comment on above: Performed By: #### A FPA3 ####[id number] [place] [address] Chloride molar conc 103 mmol/L Normal 98 - 107 [facility] Comment on above: Performed By: #### A FPA3 ####[id number] [place] [address] FIO2 75 % Normal [facility] Comment on above: Performed By: #### A FPA3 ####[id number] [place] [address] Glucose mass conc 246 mg/dL High 74 - 99 [facility] Comment on above: Performed By: #### A FPA3 ####[id number] [place] [address] Hematocrit Auto Volume Fraction (Bld) 29.0 % Low 41.0 - 52.0 [facility] Comment on above: Performed By: #### A FPA3 ####[id number] [place] [address] HGB,CALCULATED 9.9 g/dL Low 13.5 - 17.5 [facility] Comment on above: Performed By: #### A FPA3 ####[id number] [place] [address] Lactate molar conc 3.8 mmol/L High 0.4 - 2.0 [facility] Comment on above: Performed By: #### A FPA3 ####[id number] [place] [address] Oxygen ppres (BldA) 232 mm[Hg] High 85 - 95 [facility] Comment on above: Performed By: #### A FPA3 ####[id number] [place] [address] PCO2 41 mmHg Normal 38 - 42 [facility] Comment on above: Performed By: #### A FPA3 ####[id number] [place] [address] pH (Bld) 7.36 [pH] Low 7.38 - 7.42 [facility] Comment on above: Performed By: #### A FPA3 ####[id number] [place] [address] Potassium molar conc 6.5 mmol/L Critically high 3.5 - 5.3 [facility] Comment on above: Performed By: #### A FPA3 ####[id number] [place] [address] RBC Auto #/vol (Bld) 23.2 mmol/L Normal 22.0 - 26.0 [facility] Comment on above: Performed By: #### A FPA3 ####[id number] [place] [address] SO2 100 % Normal 94 - 100 [facility] Comment on above: Performed By: #### A FPA3 ####[id number] [place] [address] Sodium molar conc 132 mmol/L Low 136 - 145 [facility] Comment on above: Performed By: #### A FPA3 ####[id number] [place] [address] Anion gap 3 molar conc 11 mmol/L Normal 10 - 25 [facility] Comment on above: Performed By: #### A FPA3 ####[id number] [place] [address] BASE EXCESS-BLOOD -1.8 mmol/L Normal -2.0 - 3.0 [facility] Comment on above: Performed By: #### A FPA3 ####[id number] [place] [address] CALCIUM,IONIZED 1.03 mmol/L Low 1.10 - 1.33 [facility] Comment on above: Performed By: #### A FPA3 ####[id number] [place] [address] Chloride molar conc 103 mmol/L Normal 98 - 107 [facility] Comment on above: Performed By: #### A FPA3 ####[id number] [place] [address] FIO2 75 % Normal [facility] Comment on above: Performed By: #### A FPA3 ####[id number] [place] [address] Glucose mass conc 251 mg/dL High 74 - 99 [facility] Comment on above: Performed By: #### A FPA3 ####[id number] [place] [address] Hematocrit Auto Volume Fraction (Bld) 28.0 % Low 41.0 - 52.0 [facility] Comment on above: Performed By: #### A FPA3 ####[id number] [place] [address] HGB,CALCULATED 9.5 g/dL Low 13.5 - 17.5 [facility] Comment on above: Performed By: #### A FPA3 ####[id number] [place] [address] Lactate molar conc 3.8 mmol/L High 0.4 - 2.0 [facility] Comment on above: Performed By: #### A FPA3 ####[id number] [place] [address] Oxygen ppres (BldA) 312 mm[Hg] High 85 - 95 [facility] Comment on above: Performed By: #### A FPA3 ####[id number] [place] [address] PCO2 46 mmHg High 38 - 42 [facility] Comment on above: Performed By: #### A FPA3 ####[id number] [place] [address] pH (Bld) 7.33 [pH] Low 7.38 - 7.42 [facility] Comment on above: Performed By: #### A FPA3 ####[id number] [place] [address] Potassium molar conc 6.5 mmol/L Critically high 3.5 - 5.3 [facility] Comment on above: Performed By: #### A FPA3 ####[id number] [place] [address] RBC Auto #/vol (Bld) 24.3 mmol/L Normal 22.0 - 26.0 [facility] Comment on above: Performed By: #### A FPA3 ####[id number] [place] [address] SO2 100 % Normal 94 - 100 [facility] Comment on above: Performed By: #### A FPA3 ####[id number] [place] [address] Sodium molar conc 132 mmol/L Low 136 - 145 [facility] Comment on above: Performed By: #### A FPA3 ####[id number] [place] [address] Anion gap 3 molar conc 12 mmol/L Normal 10 - 25 [facility] Comment on above: Performed By: #### A FPA3 ####[id number] [place] [address] BASE EXCESS-BLOOD -0.1 mmol/L Normal -2.0 - 3.0 [facility] Comment on above: Performed By: #### A FPA3 ####[id number] [place] [address] CALCIUM,IONIZED 0.87 mmol/L Low 1.10 - 1.33 [facility] Comment on above: Performed By: #### A FPA3 ####[id number] [place] [address] Chloride molar conc 101 mmol/L Normal 98 - 107 [facility] Comment on above: Performed By: #### A FPA3 ####[id number] [place] [address] FIO2 80 % Normal [facility] Comment on above: Performed By: #### A FPA3 ####[id number] [place] [address] Glucose mass conc 230 mg/dL High 74 - 99 [facility] Comment on above: Performed By: #### A FPA3 ####[id number] [place] [address] Hematocrit Auto Volume Fraction (Bld) 27.0 % Low 41.0 - 52.0 [facility] Comment on above: Performed By: #### A FPA3 ####[id number] [place] [address] HGB,CALCULATED 9.2 g/dL Low 13.5 - 17.5 [facility] Comment on above: Performed By: #### A FPA3 ####[id number] [place] [address] Lactate molar conc 3.1 mmol/L High 0.4 - 2.0 [facility] Comment on above: Performed By: #### A FPA3 ####[id number] [place] [address] Oxygen ppres (BldA) 392 mm[Hg] High 85 - 95 [facility] Comment on above: Performed By: #### A FPA3 ####[id number] [place] [address] PCO2 47 mmHg High 38 - 42 [facility] Comment on above: Performed By: #### A FPA3 ####[id number] [place] [address] pH (Bld) 7.35 [pH] Low 7.38 - 7.42 [facility] Comment on above: Performed By: #### A FPA3 ####[id number] [place] [address] Potassium molar conc 5.1 mmol/L Normal 3.5 - 5.3 [facility] Comment on above: Performed By: #### A FPA3 ####[id number] [place] [address] RBC Auto #/vol (Bld) 25.9 mmol/L Normal 22.0 - 26.0 [facility] Comment on above: Performed By: #### A FPA3 ####[id number] [place] [address] SO2 99 % Normal 94 - 100 [facility] Comment on above: Performed By: #### A FPA3 ####[id number] [place] [address] Sodium molar conc 134 mmol/L Low 136 - 145 [facility] Comment on above: Performed By: #### A FPA3 ####[id number] [place] [address] Anion gap 3 molar conc 14 mmol/L Normal 10 - 25 [facility] Comment on above: Performed By: #### A FPA3 ####[id number] [place] [address] BASE EXCESS-BLOOD -3.6 mmol/L Low -2.0 - 3.0 [facility] Comment on above: Performed By: #### A FPA3 ####[id number] [place] [address] CALCIUM,IONIZED 1.10 mmol/L Normal 1.10 - 1.33 [facility] Comment on above: Performed By: #### A FPA3 ####[id number] [place] [address] Chloride molar conc 100 mmol/L Normal 98 - 107 [facility] Comment on above: Performed By: #### A FPA3 ####[id number] [place] [address] FIO2 64 % Normal [facility] Comment on above: Performed By: #### A FPA3 ####[id number] [place] [address] Glucose mass conc 268 mg/dL High 74 - 99 [facility] Comment on above: Performed By: #### A FPA3 ####[id number] [place] [address] Hematocrit Auto Volume Fraction (Bld) 36.0 % Low 41.0 - 52.0 [facility] Comment on above: Performed By: #### A FPA3 ####[id number] [place] [address] HGB,CALCULATED 12.2 g/dL Low 13.5 - 17.5 [facility] Comment on above: Performed By: #### A FPA3 ####[id number] [place] [address] Lactate molar conc 3.1 mmol/L High 0.4 - 2.0 [facility] Comment on above: Performed By: #### A FPA3 ####[id number] [place] [address] Oxygen ppres (BldA) 111 mm[Hg] High 85 - 95 [facility] Comment on above: Performed By: #### A FPA3 ####[id number] [place] [address] PCO2 47 mmHg High 38 - 42 [facility] Comment on above: Performed By: #### A FPA3 ####[id number] [place] [address] pH (Bld) 7.30 [pH] Low 7.38 - 7.42 [facility] Comment on above: Performed By: #### A FPA3 ####[id number] [place] [address] Potassium molar conc 5.3 mmol/L Normal 3.5 - 5.3 [facility] Comment on above: Performed By: #### A FPA3 ####[id number] [place] [address] RBC Auto #/vol (Bld) 23.1 mmol/L Normal 22.0 - 26.0 [facility] Comment on above: Performed By: #### A FPA3 ####[id number] [place] [address] SO2 99 % Normal 94 - 100 [facility] Comment on above: Performed By: #### A FPA3 ####[id number] [place] [address] Sodium molar conc 132 mmol/L Low 136 - 145 [facility] Comment on above: Performed By: #### A FPA3 ####[id number] [place] [address] Anion gap 3 molar conc 13 mmol/L Normal 10 - 25 [facility] Comment on above: Performed By: #### A FPA3 ####[id number] [place] [address] BASE EXCESS-BLOOD -3.2 mmol/L Low -2.0 - 3.0 [facility] Comment on above: Performed By: #### A FPA3 ####[id number] [place] [address] CALCIUM,IONIZED 1.20 mmol/L Normal 1.10 - 1.33 [facility] Comment on above: Performed By: #### A FPA3 ####[id number] [place] [address] Chloride molar conc 102 mmol/L Normal 98 - 107 [facility] Comment on above: Performed By: #### A FPA3 ####[id number] [place] [address] FIO2 100 % Normal [facility] Comment on above: Performed By: #### A FPA3 ####[id number] [place] [address] Glucose mass conc 238 mg/dL High 74 - 99 [facility] Comment on above: Performed By: #### A FPA3 ####[id number] [place] [address] Hematocrit Auto Volume Fraction (Bld) 40.0 % Low 41.0 - 52.0 [facility] Comment on above: Performed By: #### A FPA3 ####[id number] [place] [address] HGB,CALCULATED 13.6 g/dL Normal 13.5 - 17.5 [facility] Comment on above: Performed By: #### A FPA3 ####[id number] [place] [address] Lactate molar conc 2.3 mmol/L High 0.4 - 2.0 [facility] Comment on above: Performed By: #### A FPA3 ####[id number] [place] [address] Oxygen ppres (BldA) 383 mm[Hg] High 85 - 95 [facility] Comment on above: Performed By: #### A FPA3 ####[id number] [place] [address] PCO2 48 mmHg High 38 - 42 [facility] Comment on above: Performed By: #### A FPA3 ####[id number] [place] [address] pH (Bld) 7.30 [pH] Low 7.38 - 7.42 [facility] Comment on above: Performed By: #### A FPA3 ####[id number] [place] [address] Potassium molar conc 4.6 mmol/L Normal 3.5 - 5.3 [facility] Comment on above: Performed By: #### A FPA3 ####[id number] [place] [address] RBC Auto #/vol (Bld) 23.6 mmol/L Normal 22.0 - 26.0 [facility] Comment on above: Performed By: #### A FPA3 ####[id number] [place] [address] SO2 99 % Normal 94 - 100 [facility] Comment on above: Performed By: #### A FPA3 ####[id number] [place] [address] Sodium molar conc 134 mmol/L Low 136 - 145 [facility] Comment on above: Performed By: #### A FPA3 ####[id number] [place] [address] CALCIUM, IONIZEDon 8 CALCIUM,IONIZED 1.24 mmol/L Normal 1.10 - 1.33 [facility] Comment on above: Result Comment: The performance [...] (RBC) 12.8 % Normal 11.5 - 14.5 [facility] Comment on above: Performed By: #### E MRAD ####NO LOCATION NEEDED Hematocrit Auto Volume Fraction (Bld) 37.9 % Low 41.0 - 52.0 [facility] Comment on above: Performed By: #### E MRAD ####NO LOCATION NEEDED Hemoglobin mass conc (Bld) 12.7 g/dL Low 13.5 - 17.5 [facility] Comment on above: Performed By: #### E MRAD ####NO LOCATION NEEDED MCHC Auto mass conc (RBC) 33.5 g/dL Normal 32.0 - 36.0 [facility] Comment on above: Performed By: #### E MRAD ####NO LOCATION NEEDED MCV Auto Entitic volume (RBC) 92 fL Normal 80 - 100 [facility] Comment on above: Performed By: #### E MRAD ####NO LOCATION NEEDED Nucleated RBC/100 WBC Ratio (Bld) 0.0 /100 WBC Normal 0.0-0.0 [facility] Comment on above: Performed By: #### E MRAD ####NO LOCATION NEEDED Platelets Auto #/vol (Bld) 201 10*3/uL Normal 150 - 450 [facility] Comment on above: Performed By: #### E MRAD ####NO LOCATION NEEDED RBC Auto #/vol (Bld) 4.12 x10E12/L Low 4.50 - 5.90 [facility] Comment on above: Performed By: #### E MRAD ####NO LOCATION NEEDED WBC Auto #/vol (Bld) 19.7 10*3/uL High 4.4 - 11.3 [facility] Comment on above: Performed By: #### E MRAD ####NO LOCATION NEEDED Erythrocyte distribution width Auto Ratio (RBC) 12.7 % Normal 11.5 - 14.5 [facility] Comment on above: Performed By: #### C BC ####[id number] [place] [address] Hematocrit Auto Volume Fraction (Bld) 33.7 % Low 41.0 - 52.0 [facility] Comment on above: Performed By: #### C BC ####[id number] [place] [address] Hemoglobin mass conc (Bld) 11.5 g/dL Low 13.5 - 17.5 [facility] Comment on above: Performed By: #### C BC ####[id number] [place] [address] MCHC Auto mass conc (RBC) 34.1 g/dL Normal 32.0 - 36.0 [facility] Comment on above: Performed By: #### C BC ####[id number] [place] [address] MCV Auto Entitic volume (RBC) 92 fL Normal 80 - 100 [facility] Comment on above: Performed By: #### C BC ####[id number] [place] [address] Nucleated RBC/100 WBC Ratio (Bld) 0.0 /100 WBC Normal 0.0-0.0 [facility] Comment on above: Performed By: #### C BC ####[id number] [place] [address] Platelets Auto #/vol (Bld) 167 10*3/uL Normal 150 - 450 [facility] Comment on above: Performed By: #### C BC ####[id number] [place] [address] RBC Auto #/vol (Bld) 3.66 x10E12/L Low 4.50 - 5.90 [facility] Comment on above: Performed By: #### C BC ####[id number] [place] [address] WBC Auto #/vol (Bld) 14.7 10*3/uL High 4.4 - 11.3 [facility] Comment on above: Performed By: #### C BC ####[id number] [place] [address] Erythrocyte distribution width Auto Ratio (RBC) 12.7 % Normal 11.5 - 14.5 [facility] Comment on above: Performed By: #### C BC ####[id number] [place] [address] Hematocrit Auto Volume Fraction (Bld) 40.5 % Low 41.0 - 52.0 [facility] Comment on above: Performed By: #### C BC ####[id number] [place] [address] Hemoglobin mass conc (Bld) 13.9 g/dL Normal 13.5 - 17.5 [facility] Comment on above: Performed By: #### C BC ####[id number] [place] [address] MCHC Auto mass conc (RBC) 34.3 g/dL Normal 32.0 - 36.0 [facility] Comment on above: Performed By: #### C BC ####[id number] [place] [address] MCV Auto Entitic volume (RBC) 91 fL Normal 80 - 100 [facility] Comment on above: Performed By: #### C BC ####[id number] [place] [address] Nucleated RBC/100 WBC Ratio (Bld) 0.0 /100 WBC Normal 0.0-0.0 [facility] Comment on above: Performed By: #### C BC ####[id number] [place] [address] Platelets Auto #/vol (Bld) 220 10*3/uL Normal 150 - 450 [facility] Comment on above: Performed By: #### C BC ####[id number] [place] [address] RBC Auto #/vol (Bld) 4.44 x10E12/L Low 4.50 - 5.90 [facility] Comment on above: Performed By: #### C BC ####[id number] [place] [address] WBC Auto #/vol (Bld) 8.6 10*3/uL Normal 4.4 - 11.3 [facility] Comment on above: Performed By: #### C BC ####[id number] [id number] COAGULATION SCREENon 018 aPTT Coag time (Bld) 27 s Low 28 - 38 [facility] Comment on above: Result Comment: Note new reference range as of 03/10/2018. THE APTT IS NO LONGER USED FOR MONITORING UNFRACTIONATED HEPARIN THERAPY. FOR MONITORING HEPARIN THERAPY, USE THE HEPARIN ASSAY. Performed By: #### E MRAD ####NO LOCATION NEEDED INR Coag RelTime (PPP) 1.2 {INR} High 0.9 - 1.1 [facility] Comment on above: Performed By: #### E MRAD ####NO LOCATION NEEDED Prothrombin time (PT) Coag time (PPP) 13.8 s High 9.7 - 12.7 [facility] Comment on above: Result Comment: Note new reference range as of 03/10/2018. Performed By: #### E MRAD ####NO LOCATION NEEDED aPTT Coag time (Bld) 27 s Low 28 - 38 [facility] Comment on above: Result Comment: Note new reference range as of 03/10/2018. THE APTT IS NO LONGER USED FOR MONITORING UNFRACTIONATED HEPARIN THERAPY. FOR MONITORING HEPARIN THERAPY, USE THE HEPARIN ASSAY. Performed By: #### C OAGS ####[id number] [place] [address] INR Coag RelTime (PPP) 1.4 {INR} High 0.9 - 1.1 [facility] Comment on above: Performed By: #### C OAGS ####[id number] [place] [address] Prothrombin time (PT) Coag time (PPP) 16.0 s High 9.7 - 12.7 [facility] Comment on above: Result Comment: Note new reference range as of 03/10/2018. Performed By: #### C OAGS ####[id number] [place] [address] aPTT Coag time (Bld) 66 s High 28 - 38 [facility] Comment on above: Result Comment: Note new reference range as of 03/10/2018. THE APTT IS NO LONGER USED FOR MONITORING UNFRACTIONATED HEPARIN THERAPY. FOR MONITORING HEPARIN THERAPY, USE THE HEPARIN ASSAY. Performed By: #### C OAGS ####[id number] [place] [address] INR Coag RelTime (PPP) 1.2 {INR} High 0.9 - 1.1 [facility] Comment on above: Performed By: #### C OAGS ####[id number] [place] [address] Prothrombin time (PT) Coag time (PPP) 13.4 s High 9.7 - 12.7 [facility] Comment on above: Result Comment: Note new reference range as of 03/10/2018. Performed By: #### C OAGS ####[id number] [place] [address] COOX PANEL, ARTERIALon 03-31 DEOXY HGB 1.4 % Normal 0.0 - 5.0 [facility] Comment on above: Performed By: #### E MRAD ####NO LOCATION NEEDED Hemoglobin mass conc (Bld) 11.5 g/dL Low 13.5 - 17.5 [facility] Comment on above: Performed By: #### E MRAD ####NO LOCATION NEEDED Hemoglobin mass conc (Bld) 2.1 % Abnormal [facility] Comment on above: Result Comment: REF VALUESNONSMOKERS 0.5-1.5%SMOKERS 0.5-10.0% Performed By: #### E MRAD ####NO LOCATION NEEDED MET HGB 1.0 % Normal 0.0 - 1.5 [facility] Comment on above: Performed By: #### E MRAD ####NO LOCATION NEEDED OXY HGB 95.5 % Normal 94.0 - 98.0 [facility] Comment on above: Performed By: #### E MRAD ####NO LOCATION NEEDED DEOXY HGB 1.2 % Normal 0.0 - 5.0 [facility] Comment on above: Performed By: #### C OOXA ####[id number] [place] [address] Hemoglobin mass conc (Bld) 12.0 g/dL Low 13.5 - 17.5 [facility] Comment on above: Performed By: #### C OOXA ####[id number] [place] [address] Hemoglobin mass conc (Bld) 2.1 % Abnormal [facility] Comment on above: Result Comment: REF VALUESNONSMOKERS 0.5-1.5%SMOKERS 0.5-10.0% Performed By: #### C OOXA ####[id number] [place] [address] MET HGB 1.3 % Normal 0.0 - 1.5 [facility] Comment on above: Performed By: #### C OOXA ####[id number] [place] [address] OXY HGB 95.4 % Normal 94.0 - 98.0 [facility] Comment on above: Performed By: #### C OOXA ####[id number] [place] [address] DEOXY HGB 0.3 % Normal 0.0 - 5.0 [facility] Comment on above: Performed By: #### C OOXA ####[id number] [place] [address] Hemoglobin mass conc (Bld) 11.7 g/dL Low 13.5 - 17.5 [facility] Comment on above: Performed By: #### C OOXA ####[id number] [place] [address] Hemoglobin mass conc (Bld) 2.0 % Abnormal [facility] Comment on above: Result Comment: REF VALUESNONSMOKERS 0.5-1.5%SMOKERS 0.5-10.0% Performed By: #### C OOXA ####[id number] [place] [address] MET HGB 1.1 % Normal 0.0 - 1.5 [facility] Comment on above: Performed By: #### C OOXA ####[id number] [place] [address] OXY HGB 96.5 % Normal 94.0 - 98.0 [facility] Comment on above: Performed By: #### C OOXA ####[id number] [place] [address] DEOXY HGB 0.6 % Normal 0.0 - 5.0 [facility] Comment on above: Performed By: #### C OOXA ####[id number] [place] [address] Hemoglobin mass conc (Bld) 1.8 % Abnormal [facility] Comment on above: Result Comment: REF VALUESNONSMOKERS 0.5-1.5%SMOKERS 0.5-10.0% Performed By: #### C OOXA ####[id number] [place] [address] Hemoglobin mass conc (Bld) 11.4 g/dL Low 13.5 - 17.5 [facility] Comment on above: Performed By: #### C OOXA ####[id number] [place] [address] MET HGB 1.0 % Normal 0.0 - 1.5 [facility] Comment on above: Performed By: #### C OOXA ####[id number] [place] [address] OXY HGB 96.6 % Normal 94.0 - 98.0 [facility] Comment on above: Performed By: #### C OOXA ####[id number] [place] [address] DEOXY HGB 0.3 % Normal 0.0 - 5.0 [facility] Comment on above: Performed By: #### C OOXA ####[id number] [place] [address] Hemoglobin mass conc (Bld) 2.0 % Abnormal [facility] Comment on above: Result Comment: REF VALUESNONSMOKERS 0.5-1.5%SMOKERS 0.5-10.0% Performed By: #### C OOXA ####[id number] [place] [address] Hemoglobin mass conc (Bld) 11.3 g/dL Low 13.5 - 17.5 [facility] Comment on above: Performed By: #### C OOXA ####[id number] [place] [address] MET HGB 0.7 % Normal 0.0 - 1.5 [facility] Comment on above: Performed By: #### C OOXA ####[id number] [place] [address] OXY HGB 97.0 % Normal 94.0 - 98.0 [facility] Comment on above: Performed By: #### C OOXA ####[id number] [place] [address] DEOXY HGB -0.1 % Low 0.0 - 5.0 [facility] Comment on above: Performed By: #### C OOXA ####[id number] [place] [address] Hemoglobin mass conc (Bld) 2.2 % Abnormal [facility] Comment on above: Result Comment: REF VALUESNONSMOKERS 0.5-1.5%SMOKERS 0.5-10.0% Performed By: #### C OOXA ####[id number] [place] [address] Hemoglobin mass conc (Bld) 11.3 g/dL Low 13.5 - 17.5 [facility] Comment on above: Performed By: #### C OOXA ####[id number] [place] [address] MET HGB 0.8 % Normal 0.0 - 1.5 [facility] Comment on above: Performed By: #### C OOXA ####[id number] [place] [address] OXY HGB 97.1 % Normal 94.0 - 98.0 [facility] Comment on above: Performed By: #### C OOXA ####[id number] [place] [address] DEOXY HGB 1.0 % Normal 0.0 - 5.0 [facility] Comment on above: Performed By: #### C OOXA ####[id number] [place] [address] Hemoglobin mass conc (Bld) 1.9 % Abnormal [facility] Comment on above: Result Comment: REF VALUESNONSMOKERS 0.5-1.5%SMOKERS 0.5-10.0% Performed By: #### C OOXA ####[id number] [place] [address] Hemoglobin mass conc (Bld) 10.9 g/dL Low 13.5 - 17.5 [facility] Comment on above: Performed By: #### C OOXA ####[id number] [place] [address] MET HGB 1.7 % High 0.0 - 1.5 [facility] Comment on above: Performed By: #### C OOXA ####[id number] [place] [address] OXY HGB 95.4 % Normal 94.0 - 98.0 [facility] Comment on above: Performed By: #### C OOXA ####[id number] [place] [address] DEOXY HGB 1.5 % Normal 0.0 - 5.0 [facility] Comment on above: Performed By: #### C OOXA ####[id number] [place] [address] Hemoglobin mass conc (Bld) 13.2 g/dL Low 13.5 - 17.5 [facility] Comment on above: Performed By: #### C OOXA ####[id number] [place] [address] Hemoglobin mass conc (Bld) 1.6 % Abnormal [facility] Comment on above: Result Comment: REF VALUESNONSMOKERS 0.5-1.5%SMOKERS 0.5-10.0% Performed By: #### C OOXA ####[id number] [place] [address] MET HGB 0.8 % Normal 0.0 - 1.5 [facility] Comment on above: Performed By: #### C OOXA ####[id number] [place] [address] OXY HGB 96.2 % Normal 94.0 - 98.0 [facility] Comment on above: Performed By: #### C OOXA ####[id number] [place] [address] DEOXY HGB 0.7 % Normal 0.0 - 5.0 [facility] Comment on above: Performed By: #### C OOXA ####[id number] [place] [address] Hemoglobin mass conc (Bld) 1.5 % Normal [facility] Comment on above: Result Comment: REF VALUESNONSMOKERS 0.5-1.5%SMOKERS 0.5-10.0% Performed By: #### C OOXA ####[id number] [place] [address] Hemoglobin mass conc (Bld) 14.7 g/dL Normal 13.5 - 17.5 [facility] Comment on above: Performed By: #### C OOXA ####[id number] [place] [address] MET HGB 0.9 % Normal 0.0 - 1.5 [facility] Comment on above: Performed By: #### C OOXA ####[id number] [place] [address] OXY HGB 96.9 % Normal 94.0 - 98.0 [facility] Comment on above: Performed By: #### C OOXA ####[id number] [place] [address] CORTISOL, A.M.on 03-31-2018 CORTISOL, A.M. 24.7 ug/dL High 5.0 - 20.0 [facility] Comment on above: Performed By: #### C ARABELLA ####[id number] [place] [address] CORTISOL, P.M.on 03-31-2018 CORTISOL, P.M. 17.4 ug/dL High 2.5 - 10.0 [facility] Comment on above: Performed By: #### E MRAD ####NO LOCATION NEEDED CORTISOL, P.M. 31.3 ug/dL High 2.5 - 10.0 [facility] Comment on above: Performed By: #### E MRAD ####NO LOCATION NEEDED CORTISOL, P.M. 44.9 ug/dL High 2.5 - 10.0 [facility] Comment on above: Performed By: #### E MRAD ####NO LOCATION NEEDED Daily Progress Note-Endocrin cherie 03-31-2018 Protein mass conc Consult Type: subseq [...] continued as q6hrs. Objective Data: Objective Information:T [id number]/889 4%Date/Time03/31 4: 4: 4: 4: 4:07Range(35.8C - 36.4C ) (74 - 97 ) (17 - 20 ) (110 - 159 )/ (65 - 92 ) (94%- 97% ) Pain with Activity reported at 11/12 7:51: 3Pain at Rest reported at 03/30 19:00: 0 Physical Exam: Constitutional: Well developed, awake/alert/oriented x3, no distress, alert andcooperativeGastrointestin al: Nondistended, soft, non-tender, no rebound tenderness orguarding, no masses palpable, no organomegaly, +BS, no bruitsSkin: Warm and dry, no lesions, no rashes Medication: Medications: Continuous Medications ---- 1. Nitroglycerin 50 mg/ D5W 250 mL Infusion: 10 mcg/min IntraVenous 2. Sodium Chloride 0.9% .: 250 mL IntraVenous Scheduled Medications ---- 1. Aspirin Chewable: 81 mg Oral Daily2. Atorvastatin: 40 mg Oral Daily3. Carvedilol: 12.5 mg Oral 2 Times a Day4. Chlorhexidine Gluconate 4% Topical: 1 application(s) Topical Once5. Citalopram: 20 mg Oral Daily6. Docusate 50 mg - Senna 8.6 m tablet(s) Oral 2 Times a Day7. Fludrocortisone: 0.05 mg Oral 8. Heparin (Repeat Bolus) Injectable: 4000 unit(s) IntraVenous Push Every 4Quaje4. Hydrocortisone Na Succinate Injectable: 25 mg IntraVenous Push Every 1Ovyhu98. Insulin Glargine (Lantus) Injectable: 20 unit(s) SubCutaneous Every 96Pmjsp45. Insulin Lispro (HumaLOG) Injectable: 12 unit(s) SubCutaneous 3 Times aDay Before Meals12. Insulin Lispro Mild Corrective Scale: unit(s) SubCutaneous 3 Times a DayBefore Meals13. Levothyroxine: 150 microgram(s) Oral Daily14. Mupirocin 2%: 0.5 application(s) Each Nostril 2 Times a Day15. Pantoprazole: 40 mg Oral Daily16. rOPINIRole: 6 mg Oral 17. Sodium Chloride 0.65% Nasal [place]: 2 spray(s) Each Nostril 2 Times aDay PRN Medications ---- 1. Dextrose 50% in Water Injectable: 25 gram(s) IntraVenous Push Every 53Rauptob3. Glucagon Injectable: 1 mg IntraMuscular Every 15 Minutes3. Nitroglycerin SubLingual: 0.4 mg SubLingual Every 5 Minutes4. Polyethylene Glycol: 17 gram(s) Oral Daily Currently Suspended Medications ---- 1. Hydrocortisone: 10 mg Oral 2. Hydrocortisone: 5 mg Oral 3. Hydrocortisone: 2.5 mg Oral Recent Lab Results: Results: I have reviewed these laboratory results: Glucose_POCT Trending View [id number] 21:35:00 30-Mar-2018 17:24:00 30-Mar-2018 12:06:00 30-Mar-2018 07:46:00 29-Mar-2018 20:49:00Glucose-IMHJ433 H 216 H 205 H 153 H 244 H Renal Function Panel Trending View [id number] 19:18:00 29-Mar-2018 19:58:00Glucose, Qujva832 H 237 WWZ833 132 LK4.4 4.7YD328 99Bicarbonate, Serum23 19 LAnion Gap, Serum16 08VZA49 H 24 HCREAT1.68 H 1.32 HGFR-Non Trjvxjqn43 A 54 AGFR- Tbqawayg37 A 65Calcium, Serum9.5 9.3Phosphorus, Serum4.5 4.2ALB4.1 3.9 Assessment and Plan:Assessment: Mr. Elkins is a 67 yo WM with no known history of CAD, who has a past medicalhistory of HTN, HLD, T2DM, Colbert's disease, hypothyroidism, COPD, AKASH onCPAP, prostate ca s/p prostatectomy in 2011, and psoriasis who [facility].Endocrine consulted fr evaluation of Colbert disease and treatment periop Patient was on supra-therapeutic dose of HCT 20-0-20 , fludrocortisone 0.1 ,mgdailyPatient has uncontrolled HTN and uncontrolled BSMost likely tomorrow (03/23) IVC filter placement 1. Colbert's Disease-- Fludrocortisone 0.05 mg 4 times weekly ( and friday)-- 03/31:CABG Today First case, patient given HCT 30 mg by mouth once at 5 am , Cortisollevel checked one hour later, HCt 25 mg IV q6hrs to be started as of NOW (6 am)and continued as q9uei--Noxum Cortisol level q2 hrs after pm dose of HCT IV--Will follow 2. T2DM-- Patient received lantus 20 units instead of 30 yesterday in the evening--Pt having CABG today, to eb on insulin drip as per CICU protocol post op--Will follow Please page with questions [phone] Patient seen and examined, plan discussed with Dr Quevedo Signature/Cosignature/Attest ation:Attending AttestationI saw and evaluated the patient. I [...] patient (as noted in the above attestation) [id number] Electronic Signatures:Starr Quevedo) (Signed 02-Apr-2018 10:01)Authored: Signature/Cosignature/Attest ationCo-Signer: Service, Subjective Data, Objective Data, Assessment and Plan,Signature/Cosignature/A ttestationHasmukh Stephenson (Resident)) (Signed 31-Mar-2018 06:23)Authored: Service, Subjective Data, Objective Data, Assessment and Plan,Signature/Cosignature/A ttestation Last Updated: 02-Apr-2018 10:01 by Starr Quevedo) Normal [facility] EMR ADDONon 03-31-2018 ADDON CONFIRMATION REQUEST REC'D Normal [facility] Comment on above: Performed By: #### E MRAD ####NO LOCATION NEEDED FIBRINOGENon 03-31-2018 FIBRINOGEN Canceled Normal [facility] Comment on above: Order Comment: TEST FIBRINOGEN WAS CANCELLED, 03/31/2018 14:47 ?Cancel Reason: Discontinued. Performed By: #### E MRAD ####NO LOCATION NEEDED FIBRINOGEN 244 mg/dL Normal 200 - 400 [facility] Comment on above: Performed By: #### F IB ####[id number] [place] [address] FIBRINOGEN 356 mg/dL Normal 200 - 400 [facility] Comment on above: Performed By: #### F IB ####[id number] [id number] GLUCOSE-POCTon 03-31-2018 Glucose mass conc 149 mg/dL High 74 - 99 [facility] Comment on above: Performed By: #### E MRAD ####NO LOCATION NEEDED Glucose mass conc 167 mg/dL High 74 - 99 [facility] Comment on above: Performed By: #### E MRAD ####NO LOCATION NEEDED Glucose mass conc 172 mg/dL High 74 - 99 [facility] Comment on above: Performed By: #### E MRAD ####NO LOCATION NEEDED Glucose mass conc 186 mg/dL High 74 - 99 [facility] Comment on above: Performed By: #### E MRAD ####NO LOCATION NEEDED Glucose mass conc 191 mg/dL High 74 - 99 [facility] Comment on above: Performed By: #### E MRAD ####NO LOCATION NEEDED Glucose mass conc 210 mg/dL High 74 - 99 [facility] Comment on above: Performed By: #### G BECKY ####[id number] [id number] History and Physical - Christopher Vitale 03-31-2018 History and Physical - Critical Care Service:Critical Care Service: ServiceSICU Purple History of Present Illness:HPI:HPI: 67 yo M with HTN, DLD, T2DM, Addisson's, GERD, prostate ca s/pprostatectomy in 2011, hypothyroidism, psoriasis transferred to medicine at [facility] from [facility] on 03/18 for CABG eval Patient reports 2 month h/o intermittent exertional left sided chest painlasting less than 30 min, relieved with rest, with no other associatedsymptoms. He woke up 03/16 at 1AM with chest pressure associated with dyspnea,and his took him to [facility] where he was diagnosed with a PE,started on heparin gtt, then transferred to [facility]. There, hewas found to have a [...] 3 weeks ago.Prostatectomy 2011 FAMILY HISTORY [place], [place], CHF, HTN, DM and DLD SOCIAL HISTORY quit smoking 20 years ago. 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 PRIOR IMAGINGCTA at [place]:Pulmonary emboli involving the bilateral lobar segmental, and severalsubsegmental branches (RUL, RML, RLL, IFDEL, LLL). LHC at [facility]:LAD prox: 30%LAD mid: 95%Diag 3rd: 99%RCA: 85 %PLV: 50%Circ: 95% TTE at [facility]:EF 60-65%Mild LA dialtionNo valvular abnormalities Comorbidities: Comorbid [...] intubated, sedated Objective:Objective Information: Objective Information T KJWDMeO0Upuii36.020941548/59 94%Date/Time03/31 4: 15: 4: 14: 15:00Range(35.8C - 36.4C ) (80 - 102 ) (18 - 20 ) (110 - 139 )/ (59 - 88 )(94% - 100% ) Vent Yqaspwob23/13 14:75PriywTAZ60/13 14:11Rate Set (breaths/min)14105/31 14:11Tidal Volume Set (mL)22348/13 14:11PEEP (cm H2O)8105/31 14:11FiO2 (%)50 Vent Data03/31 14:11Ventilator IdentificationXL 7303/31 14:11Start Bjin86-Xrt-370916/13 14:11Start Time14:10105/31 14:11Ventilator Days and Hours0 Hours Non-Hvkycpzi24/13 14:11High Inspiratory Pressure (cm H2O)45 Physical Exam: Neurological: intubated/sedated/neuromuscl ar blocked. No spontaneous movementof extremities.Cardiovascular: Sinus tach 101. Midsternal incision with dressing CDI.Mediastinal chest tube x 2, left pleural chest tube x 1, draining minimalserosang. A-wires present, AAI @ 90. Right SVG site with lauren bandage intact.Pulses palpable throughout.Respiratory/Thora x: Intubated, mechanically ventilated. Lungs clear. Equalchest expansionGenitourinary: Her intact, draining clear yellow urine.Gastrointestinal: OG to LIWS. Abdomen soft, non-distended. Bowel sounds faint.Skin: Warm and dry, no lesions, no rashesConstitutional: intubated/sedatedEyes: PERRL, EOMI, clear scleraENMT: mucous membranes moist, no apparent injury, no lesions seenHead/Neck: RIJ MAC with SCG, trachea midlineExtremities: normal extremities, no cyanosis edema, contusions or wounds, noclubbingPsychological: sedated Medications: Medications: Continuous Medications ---- 1. Clevidipine 0.5 mg / mL Infusion: 1 mg/hr IntraVenous 2. Insulin Regular 100 units/ NaCL 0.9% 100 mL Intensive Infusion: 3 units/hr IntraVenous 3. PLASMA-LYTE Infusion: 1000 mL IntraVenous 4. Propofol 10 mg/mL Infusion: 5 mcg/kg/min IntraVenous Scheduled Medications ---- 1. Docusate: 100 mg Oral 2 Times a Day2. fentaNYL Injectable: 50 microgram(s) IntraVenous Push Once3. Hydrocortisone Na Succinate Injectable: 25 mg IntraVenous Push Every 3Zaght5. Lidocaine 5% TransDermal: 1 patch TransDermal Every 24 Hours5. Pantoprazole Injectable: 40 mg IntraVenous Push Every 24 Hours PRN Medications ---- 1. Bisacodyl Rectal: 10 mg Rectal Daily2. Calcium Chloride IVPB: 0.5 gram(s) IntraVenous Piggyback Every 8 Hours3. Calcium Chloride IVPB: 1 gram(s) IntraVenous Piggyback Every 8 Hours4. Dextrose 50% in Water Injectable: 25 gram(s) IntraVenous Push Every 62Vviblwp8. Glucagon Injectable: 1 mg IntraMuscular Every 15 [...] Piggyback Every 6 Hours Currently Suspended Medications ---- 1. Aspirin Enteric Coated: 81 mg Oral Daily2. Atorvastatin: 40 mg Oral Daily3. Insulin Lispro Customizable Corrective Scale: unit(s) SubCutaneous Every4 Hours Recent Lab Results: Results:CBC: 03/31/2018 07:56 \ Hgb / \ 13.9 /WBC Plt 8.6 220 / Hct \ / 40.5 L \ RBC: 4.44 L MCV: 91 RFP: 03/30/2018 19:18NA+ Cl- BUN / 136 101 24 H / ----- Glucose ------ 193 H K+ HCO3- Creat \ 4.4 23 1.68 H \Calcium : 9.5Anion Gap : 16 Albumin : 4.1 Phos : 4.5 Coagulation: 03/31/2018 07:56PT / 13.4 H /-------< INR < 1.2 HPTT\ 66 H \ Fibrinogen: 356 Recent Arterial Blood Gas Results 03/31/2018 07:23eP6913zI6.41rDU366ZM283 Base Excess-3.4Cpkjynuavgm49.6 Assessment and Plan:Other:Assessment: Assessment:67 year old with [...] per SICU protocol ENDO: History of diabetes, Colbert's and hypothyroid -->- Consult Endocrine for management [...] G: LineRight IJ MAC w PACLeft Filiberto Rossi Seen with the critical care attending, Dr. Barnett: Continue SICU care. NED Espinal#22101 Code Status: Code StatusFull Code Signatures/Attestation/Certi fication:Critical Care PatientI have reviewed and evaluated the [...] plan. Electronic Signatures:Abelino Klein) (Signed 01-Apr-2018 08:00)Authored: Signatures/Attestation/Certi ficationCo-Signer: Objective, Assessment and Plan,Signatures/Attestation/ CertificationMargot Lyons (LITHOGRAPH PRESS OPERATOR [employer]INWARE-CUSTOMER SERVICE LEADER) (Signed 31-Mar-2018 16:14)Authored: Service, History of Present Illness, Comorbidities, Allergies,Medications Prior to Admission, Review of Systems, Objective, Assessment andPlan, Signatures/Attestation/Certi fication Last Updated: 01-Apr-2018 08:00 by Abelino Klein) Normal [facility] MAGNESIUMon 03-31-2018 Magnesium mass conc 2.67 mg/dL High 1.60 - 2.40 [facility] Comment on above: Performed By: #### E MRAD ####NO LOCATION NEEDED MV FULL PANELon 03-31-2018 Anion gap 3 molar conc 12 mmol/L Normal 10 - 25 [facility] Comment on above: Performed By: #### E MRAD ####NO LOCATION NEEDED BASE EXCESS-BLOOD -1.2 mmol/L Normal [facility] Comment on above: Performed By: #### E MRAD ####NO LOCATION NEEDED CALCIUM,IONIZED 1.19 mmol/L Normal 1.10 - 1.33 [facility] Comment on above: Performed By: #### E MRAD ####NO LOCATION NEEDED Chloride molar conc 103 mmol/L Normal 98 - 107 [facility] Comment on above: Performed By: #### E MRAD ####NO LOCATION NEEDED Glucose mass conc 180 mg/dL High 74 - 99 [facility] Comment on above: Performed By: #### E MRAD ####NO LOCATION NEEDED Hematocrit Auto Volume Fraction (Bld) 34.0 % Low 41.0 - 52.0 [facility] Comment on above: Performed By: #### E MRAD ####NO LOCATION NEEDED HGB,CALCULATED 11.6 g/dL Low 13.5 - 17.5 [facility] Comment on above: Performed By: #### E MRAD ####NO LOCATION NEEDED Lactate molar conc 2.7 mmol/L High 0.4 - 2.0 [facility] Comment on above: Performed By: #### E MRAD ####NO LOCATION NEEDED Oxygen ppres (BldA) 41 mm[Hg] Normal [facility] Comment on above: Performed By: #### E MRAD ####NO LOCATION NEEDED PCO2 56 mmHg Normal [facility] Comment on above: Performed By: #### E MRAD ####NO LOCATION NEEDED pH (Bld) 7.28 [pH] Normal [facility] Comment on above: Performed By: #### E MRAD ####NO LOCATION NEEDED Potassium molar conc 5.1 mmol/L Normal 3.5 - 5.3 [facility] Comment on above: Performed By: #### E MRAD ####NO LOCATION NEEDED RBC Auto #/vol (Bld) 26.3 mmol/L Normal [facility] Comment on above: Performed By: #### E MRAD ####NO LOCATION NEEDED SO2 66 % Normal [facility] Comment on above: Performed By: #### E MRAD ####NO LOCATION NEEDED Sodium molar conc 136 mmol/L Normal 136 - 145 [facility] Comment on above: Performed By: #### E MRAD ####NO LOCATION NEEDED OPERATIVE REPORTon 8 OPERATIVE REPORT [facility] [place], [place] [address]Nxbpzat Name: DON ELKINSMRN: [id number]: 1Encounter Number: [id number] [id number] Service: 03/31/2018Patient Location: [facility] T3091 [id number] Type: ISurgeon: Ana Egan Type: Operative ReportsPREOPERATIVE DIAGNOSIS: 1. Coronary artery disease.2. Ischemic heart disease.3. Non-ST segment elevation myocardial infarction.4. Recent pulmonary embolism, on anticoagulant therapy.5. Diabetes.6. Hypertension.7. Dyslipidemia.8. Obesity.9. [place] Heart Association class III.POSTOPERATIVE DIAGNOSIS: 1. Coronary artery disease.2. Ischemic heart disease.3. Non-ST segment elevation myocardial infarction.4. Recent pulmonary embolism, on anticoagulant therapy.5. Diabetes.6. Hypertension.7. Dyslipidemia.8. Obesity.9. [place] Heart Association class III.10. Status post coronary [...] MD ESTTT: 04/06/2018 11:16 PM ESTDICTATION NUMBER: [id number] JOB NUMBER: [id number]:Kenneth Cheng MD, PhDElectronically Signed by Dr. Jc Gaston 04/10/2018 09:10:09 AM Normal [facility] Preop Checkliston 03-31-2018 Preop Checklist Preop Checklist:Preo p Checklist: Procedure Typecabg NPO [id number] ID Band Onyes Allergy Bandno known allergies [...] Age Appropriateyes Emotional Statuscalm Electronic Signatures:Christine Martines ([facility]) (Signed 31-Mar-2018 06:10)Authored: Preop Checklist Last Updated: 31-Mar-2018 06:10 by Christine Martines ([facility]) Normal [facility] RENAL FUNCTION PANELon 03-31 Albumin mass conc 3.9 g/dL Normal 3.4 - 5.0 [facility] Comment on above: Performed By: #### E MRAD ####NO LOCATION NEEDED Anion gap 3 molar conc 16 mmol/L Normal 10 - 20 [facility] Comment on above: Performed By: #### E MRAD ####NO LOCATION NEEDED Calcium mass conc 8.8 mg/dL Normal 8.6 - 10.6 [facility] Comment on above: Performed By: #### E MRAD ####NO LOCATION NEEDED Chloride molar conc 102 mmol/L Normal 98 - 107 [facility] Comment on above: Performed By: #### E MRAD ####NO LOCATION NEEDED Creatinine mass conc 1.35 mg/dL High 0.50 - 1.30 [facility] Comment on above: Performed By: #### E MRAD ####NO LOCATION NEEDED GFR- AM. 64 mL/min/1.73m2 Normal >60 [facility] Comment on above: Result Comment: CALC ULATIONS OF ESTIMATED GFR ARE PERFORMED USING THE MDRD STUDY EQUATION FOR THE IDMS-TRACEABLE CREATININE METHODS. CLIN CHEM 2007;53:766-72 Performed By: #### E MRAD ####NO LOCATION NEEDED GFR-NON AM. 53 mL/min/1.73m2 Abnormal >60 [facility] Comment on above: Performed By: #### E MRAD ####NO LOCATION NEEDED Glucose mass conc 169 mg/dL High 74 - 99 [facility] Comment on above: Performed By: #### E MRAD ####NO LOCATION NEEDED HCO3 molar conc (Bld) 24 mmol/L Normal 21 - 32 [facility] Comment on above: Performed By: #### E MRAD ####NO LOCATION NEEDED Phosphate mass conc 3.9 mg/dL Normal 2.5 - 4.9 [facility] Comment on above: Result Comment: The performance characteristics of phosphorus testing in heparinized plasma have been validated by the individual laboratory site where testing is performed. Testing on heparinized plasma is not approved by the FDA; however, such approval is not necessary. Performed By: #### E MRAD ####NO LOCATION NEEDED Potassium molar conc 5.0 mmol/L Normal 3.5 - 5.3 [facility] Comment on above: Performed By: #### E MRAD ####NO LOCATION NEEDED Sodium molar conc 137 mmol/L Normal 136 - 145 [facility] Comment on above: Performed By: #### E MRAD ####NO LOCATION NEEDED Urea nitrogen mass conc 22 mg/dL Normal 6 - 23 [facility] Comment on above: Performed By: #### E MRAD ####NO LOCATION NEEDED Albumin mass conc 4.1 g/dL Normal 3.4 - 5.0 [facility] Comment on above: Performed By: #### E MRAD ####NO LOCATION NEEDED Anion gap 3 molar conc 19 mmol/L Normal 10 - 20 [facility] Comment on above: Performed By: #### E MRAD ####NO LOCATION NEEDED Calcium mass conc 9.4 mg/dL Normal 8.6 - 10.6 [facility] Comment on above: Performed By: #### E MRAD ####NO LOCATION NEEDED Chloride molar conc 103 mmol/L Normal 98 - 107 [facility] Comment on above: Performed By: #### E MRAD ####NO LOCATION NEEDED Creatinine mass conc 1.50 mg/dL High 0.50 - 1.30 [facility] Comment on above: Performed By: #### E MRAD ####NO LOCATION NEEDED GFR- AM. 57 mL/min/1.73m2 Abnormal >60 [facility] Comment on above: Result Comment: CALC ULATIONS OF ESTIMATED GFR ARE PERFORMED USING THE MDRD STUDY EQUATION FOR THE IDMS-TRACEABLE CREATININE METHODS. CLIN CHEM 2007;53:766-72 Performed By: #### E MRAD ####NO LOCATION NEEDED GFR-NON AM. 47 mL/min/1.73m2 Abnormal >60 [facility] Comment on above: Performed By: #### E MRAD ####NO LOCATION NEEDED Glucose mass conc 196 mg/dL High 74 - 99 [facility] Comment on above: Performed By: #### E MRAD ####NO LOCATION NEEDED HCO3 molar conc (Bld) 21 mmol/L Normal 21 - 32 [facility] Comment on above: Performed By: #### E MRAD ####NO LOCATION NEEDED Phosphate mass conc 3.2 mg/dL Normal 2.5 - 4.9 [facility] Comment on above: Result Comment: The performance characteristics of phosphorus testing in heparinized plasma have been validated by the individual laboratory site where testing is performed. Testing on heparinized plasma is not approved by the FDA; however, such approval is not necessary. Performed By: #### E MRAD ####NO LOCATION NEEDED Potassium molar conc 5.2 mmol/L Normal 3.5 - 5.3 [facility] Comment on above: Performed By: #### E MRAD ####NO LOCATION NEEDED Sodium molar conc 138 mmol/L Normal 136 - 145 [facility] Comment on above: Performed By: #### E MRAD ####NO LOCATION NEEDED Urea nitrogen mass conc 23 mg/dL Normal 6 - 23 [facility] Comment on above: Performed By: #### E MRAD ####NO LOCATION NEEDED Albumin mass conc Canceled Normal [facility] Comment on above: Order Comment: TEST RENAL FUNCTION PANEL WAS CANCELLED, 03/31/2018 14:47 ?Cancel Reason:Discontinued. Performed By: #### E MRAD ####NO LOCATION NEEDED Anion gap 3 molar conc Canceled Normal [facility] Comment on above: Order Comment: TEST RENAL FUNCTION PANEL WAS CANCELLED, 03/31/2018 14:47 ?Cancel Reason:Discontinued. Performed By: #### E MRAD ####NO LOCATION NEEDED Calcium mass conc Canceled Normal [facility] Comment on above: Order Comment: TEST RENAL FUNCTION PANEL WAS CANCELLED, 03/31/2018 14:47 ?Cancel Reason:Discontinued. Performed By: #### E MRAD ####NO LOCATION NEEDED Chloride molar conc Canceled Normal [facility] Comment on above: Order Comment: TEST RENAL FUNCTION PANEL WAS CANCELLED, 03/31/2018 14:47 ?Cancel Reason:Discontinued. Performed By: #### E MRAD ####NO LOCATION NEEDED Creatinine mass conc Canceled Normal [facility] Comment on above: Order Comment: TEST RENAL FUNCTION PANEL WAS CANCELLED, 03/31/2018 14:47 ?Cancel Reason:Discontinued. Performed By: #### E MRAD ####NO LOCATION NEEDED GFR- AM. Canceled Normal [facility] Comment on above: Order Comment: TEST RENAL FUNCTION PANEL WAS CANCELLED, 03/31/2018 14:47 ?Cancel Reason:Discontinued. Result Comment: CALC ULATIONS OF ESTIMATED GFR ARE PERFORMED USING THE MDRD STUDY EQUATION FOR THE IDMS-TRACEABLE CREATININE METHODS. CLIN CHEM 2007;53:766-72 Performed By: #### E MRAD ####NO LOCATION NEEDED GFR-NON AM. Canceled Normal [facility] Comment on above: Order Comment: TEST RENAL FUNCTION PANEL WAS CANCELLED, 03/31/2018 14:47 ?Cancel Reason:Discontinued. Performed By: #### E MRAD ####NO LOCATION NEEDED Glucose mass conc Canceled Normal [facility] Comment on above: Order Comment: TEST RENAL FUNCTION PANEL WAS CANCELLED, 03/31/2018 14:47 ?Cancel Reason:Discontinued. Performed By: #### E MRAD ####NO LOCATION NEEDED HCO3 molar conc (Bld) Canceled Normal [facility] Comment on above: Order Comment: TEST RENAL FUNCTION PANEL WAS CANCELLED, 03/31/2018 14:47 ?Cancel Reason:Discontinued. Performed By: #### E MRAD ####NO LOCATION NEEDED Phosphate mass conc Canceled Normal [facility] Comment on above: Order Comment: TEST RENAL [...] LOCATION NEEDED Potassium molar conc Canceled Normal [facility] Comment on above: Order Comment: TEST RENAL FUNCTION PANEL WAS CANCELLED, 03/31/2018 14:47 ?Cancel Reason:Discontinued. Performed By: #### E MRAD ####NO LOCATION NEEDED Sodium molar conc Canceled Normal [facility] Comment on above: Order Comment: TEST RENAL FUNCTION PANEL WAS CANCELLED, 03/31/2018 14:47 ?Cancel Reason:Discontinued. Performed By: #### E MRAD ####NO LOCATION NEEDED Urea nitrogen mass conc Canceled Normal [facility] Comment on above: Order Comment: TEST RENAL [...] Electronically signed by: EDYTA ARIAS MD Normal [facility] ANTICARDIOLIPIN ABon 018 CAROLYN IGM 0.2 MPL U/mL Normal 0.0 - 20.0 [facility] Comment on above: Result Comment: Elev ated levels of IgM anti-cardiolipin on 2 occasions at least 12 weeks apart are laboratory criteria for anti-phospholipid syndrome according to an international consensus (J Thromb Haemost 2006 4:295). IgM anti-cardiolipin tends to give false positive results in the low positive range, especially in the presence of rheumatoid factor or cryoglobulins. Performed By: #### A CA2 ####[id number] [place] [address] CAROLYN IGA 0.5 APL U/mL Normal 0.0 - 20.0 [facility] Comment on above: Result Comment: Elev ated levels of IgA anti-cardiolipin have not been included in the laboratory criteria for anti-phospholipid syndrome according to an international consensus (J Thromb Haemost 2006 4:295). It may be helpful in identifying subgroups of patients at risk for specific clinical manifestations of anti-phospholipid syndrome. Performed By: #### A CA2 ####[id number] [place] [address] CAROLYN IGG <1.6 Normal 0.0 - 20.0 [facility] Comment on above: Result Comment: Elev ated levels of IgG anti-cardiolipin on 2 occasions at least 12 weeks apart are laboratory criteria for anti-phospholipid syndrome according to an international consensus (J Thromb Haemost 2006 4:295). Performed By: #### A CA2 ####[id number] [place] [address] BETA 2 GLYCOPROTEIN ABon B2 GLYCOPROTEIN AB IGM 0.3 U/mL Normal 0.0 - 20.0 [facility] Comment on above: Result Comment: Elev ated [...] or cryoglobulins. Performed By: #### B 2GLY ####[id number] [place] [address] B2 GLYCOPROTEIN AB IGA <0.6 Normal 0.0 - 20.0 [facility] Comment on above: Result Comment: Elev ated [...] anti-phospholipid syndrome. Performed By: #### B 2GLY ####[id number] [id number] B2 GLYCOPROTEIN AB IGG <1.4 Normal 0.0 - 20.0 [facility] Comment on above: Result Comment: Elev ated levels of IgG anti-Beta 2 Glycoprotein-I on 2 occasions at least 12 weeks apart are laboratory criteria for anti-phospholipid syndrome according to an international consensus (J Thromb Haemost 2006 4:295). Performed By: #### B 2GLY ####[id number] [id number] CBCon 03-30-2018 Erythrocyte distribution width Auto Ratio (RBC) 12.8 % Normal 11.5 - 14.5 [facility] Comment on above: Performed By: #### C BC ####[id number] [place] [address] Hematocrit Auto Volume Fraction (Bld) 43.0 % Normal 41.0 - 52.0 [facility] Comment on above: Performed By: #### C BC ####[id number] [place] [address] Hemoglobin mass conc (Bld) 14.5 g/dL Normal 13.5 - 17.5 [facility] Comment on above: Performed By: #### C BC ####[id number] [place] [address] MCHC Auto mass conc (RBC) 33.7 g/dL Normal 32.0 - 36.0 [facility] Comment on above: Performed By: #### C BC ####[id number] [place] [address] MCV Auto Entitic volume (RBC) 92 fL Normal 80 - 100 [facility] Comment on above: Performed By: #### C BC ####[id number] [place] [address] Nucleated RBC/100 WBC Ratio (Bld) 0.0 /100 WBC Normal 0.0-0.0 [facility] Comment on above: Performed By: #### C BC ####[id number] [place] [address] Platelets Auto #/vol (Bld) 238 10*3/uL Normal 150 - 450 [facility] Comment on above: Performed By: #### C BC ####[id number] [place] [address] RBC Auto #/vol (Bld) 4.66 x10E12/L Normal 4.50 - 5.90 [facility] Comment on above: Performed By: #### C BC ####[id number] [place] [address] WBC Auto #/vol (Bld) 8.1 10*3/uL Normal 4.4 - 11.3 [facility] Comment on above: Performed By: #### C BC ####[id number] [place] [address] Erythrocyte distribution width Auto Ratio (RBC) 12.8 % Normal 11.5 - 14.5 [facility] Comment on above: Performed By: #### C BC ####[id number] [place] [address] Hematocrit Auto Volume Fraction (Bld) 41.1 % Normal 41.0 - 52.0 [facility] Comment on above: Performed By: #### C BC ####[id number] [place] [address] Hemoglobin mass conc (Bld) 13.7 g/dL Normal 13.5 - 17.5 [facility] Comment on above: Performed By: #### C BC ####[id number] [place] [address] MCHC Auto mass conc (RBC) 33.3 g/dL Normal 32.0 - 36.0 [facility] Comment on above: Performed By: #### C BC ####[id number] [place] [address] MCV Auto Entitic volume (RBC) 93 fL Normal 80 - 100 [facility] Comment on above: Performed By: #### C BC ####[id number] [place] [address] Nucleated RBC/100 WBC Ratio (Bld) 0.0 /100 WBC Normal 0.0-0.0 [facility] Comment on above: Performed By: #### C BC ####[id number] [place] [address] Platelets Auto #/vol (Bld) 233 10*3/uL Normal 150 - 450 [facility] Comment on above: Performed By: #### C BC ####[id number] [place] [address] RBC Auto #/vol (Bld) 4.43 x10E12/L Low 4.50 - 5.90 [facility] Comment on above: Performed By: #### C BC ####[id number] [place] [address] WBC Auto #/vol (Bld) 9.2 10*3/uL Normal 4.4 - 11.3 [facility] Comment on above: Performed By: #### C BC ####[id number] [place] [address] Clinical Intervention - Jude dey 03-30-2018 Clinical Intervention - Pharmacy Pharmacist's Clinical Intervention:Active and Pending Medications:Nitroglycerin 50 mg/ D5W 250 mL Infusion, Solution (TRIDIL)IntraVenous Initial Admin Rate = 3 mL/hr mcg/minNotes from Pharmacy: Initial DOSE Rate = 10 mcg/min = 3 mL/hr., 30-Mar-2018,Active Pharmacist intervention: Contacted physicianType of recommendation: Contacted SPORTS MANAGEMENT INTERN to clarify lack of titration orders. Shestates since nursing cannot titrate on their own she omitted titrationparameters. She will enter new orders as titration is necessaryIs this intervention medication reconciliation related: NoExpected outcome and basis: Order clarified or correctedTime Required: 1 - 5 minutes Electronic Signatures:Soni Whitman (FORMERLY [facility]) (Signed 30-Mar-2018 12:11)Authored: Pharmacist's Clinical Intervention Last Updated: 30-Mar-2018 12:11 by Soni Whitman (FORMERLY [facility]) Normal [facility] Daily Progress Note-Cardiosandra chavez 03-30-2018 Protein mass [...] PO at 0500, cortisol level at 0700, umwcgqyyxjsnwu71lw IV at 0800 and through surgery. Endocrine needs to be informed of updatesfor Brigida's management. - OR tomorrow, 2nd case- glargine 20 units tonight- trend troponins On day of CABG surgery 03/31 Hydrocortisone 30mg PO 0500Check Cortisol level at 0700ALSOStart Hydrocortisone 25mg IV q6h starting at 0800Call Endocrine on the day of surgery to keep them closely involved Objective Data: Objective Information: T VBHGEbX2Osyly13.23764255/659 6%Date/Time03/30 11: 13: 11: 13: 11:14Range(35.8C - 36.1C ) (74 - 91 ) (17 - 18 ) (120 - 159 )/ (63 - 92 ) (92%- 99% ) Qldirfw67/12 3:51: Weight in kg (Weight (kg)) 107.811/12 3:51: Weight in lbs ((lbs)) 237.8 Physical Exam: Constitutional: Resting in bed, NADHead/Neck: No JVDRespiratory/Thorax: CTABCardiovascular: RRR, S1 Y2Phijqmwqnozdqhir: soft, NT/NDExtremities: No LE edemaNeurological: alert and oriented s7Ldbmazrmyduhj: Appropriate mood and behaviorSkin: psoriasis plaque over elbows and knees; otherwise warm and dry Medication: Medications: Continuous Medications ---- 1. Nitroglycerin 50 mg/ D5W 250 mL Infusion: 10 mcg/min IntraVenous 2. Sodium Chloride 0.9% .: 250 mL IntraVenous Scheduled Medications ---- 1. Aspirin Chewable: 81 mg Oral Daily2. Atorvastatin: 40 mg Oral Daily3. Carvedilol: 12.5 mg Oral 2 Times a Day4. Chlorhexidine Gluconate 0.12% Mucous Mem: 15 mL Topical Morning andEvening5. Citalopram: 20 mg Oral Daily6. Docusate 50 mg - Senna 8.6 m tablet(s) Oral 2 Times a Day7. Fludrocortisone: 0.05 mg Oral 8. Heparin (Repeat Bolus) Injectable: 4000 unit(s) IntraVenous Push Every 8Daaef4. Hydrocortisone: 10 mg Oral 10. Hydrocortisone: 5 mg Oral 11. Hydrocortisone: 2.5 mg Oral 12. Insulin Glargine (Lantus) Injectable: 20 unit(s) SubCutaneous Every 40Pyznp77. Insulin Lispro (HumaLOG) Injectable: 12 unit(s) SubCutaneous 3 Times aDay Before Meals14. Insulin Lispro Mild Corrective Scale: unit(s) SubCutaneous 3 Times a DayBefore Meals15. Levothyroxine: 150 microgram(s) Oral Daily16. Mupirocin 2%: 0.5 application(s) Each Nostril 2 Times a Day17. Pantoprazole: 40 mg Oral Daily18. rOPINIRole: 6 mg Oral 19. Sodium Chloride 0.65% Nasal Ohlman: 2 spray(s) Each Nostril 2 Times aDay PRN Medications ---- 1. Dextrose 50% in Water Injectable: 25 gram(s) IntraVenous Push Every 17Tdkabsj9. Glucagon Injectable: 1 mg IntraMuscular Every 15 Minutes3. Nitroglycerin SubLingual: 0.4 mg SubLingual Every 5 Minutes4. Polyethylene Glycol: 17 gram(s) Oral Daily Recent Lab Results: Results: I have reviewed these laboratory results: Glucose_POCT Trending View Jiqpaq81-Lgi-5198 12:06:00 -Mar-2018 07:46:00Glucose-EKTR561 H 153 H Troponin I, Serum Trending View Gkcote28-Sfw-7390 09:37:00 30-Mar-2018 03:58:00Troponin I, Serum0.94 H 0.54 HHLab Comment: TROP CALLED RB TO SWEETIE MOLINA, 03/30/2018 07:28 Radiology Results: Results: Conclusion:Electrocardiogram 12 Lead [Mar 30 2018 11:30AM] Assessment and Plan:Assessment:67 yo M with HTN, DLD, T2DM, Addisson's, GERD, prostate ca s/p prostatectomy [id number], hypothyroidism, psoriasis, and most recently diagnosed with a PE andmultivessel CAD transferred to cardiology at [facility] from [facility] 03/18 for CABG eval. Multiple [...] 40 mg- Cardiac Cath uploaded: 03/16 at [facility] LM: 10-20%, LAD prox: 30%, LAD mid:95%, Diag 3rd: 99%, RCA: 85 %, PLV: 50%, Circ: 95%- Plan for CABG with Dr. 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 Rothman Signature/Cosignature/Attest ation:Provider/Team Contact Info-Pager [phone]/ Additional FindingsUnstable angina overnight that resolved with IV nitroglycerin, chest and rightarm pain went to 0/[address] gaston notified, but unable to do surgerysooner. CICU and HF ICU at capacity. If chest pain recurs, may need to beconsidered for IABP . Plan for now is for CABG 03/31/2018. Low threshold forICU transfer.Patent with Colbert's and appreciate detailed steroid management plan perEndocrinology Electronic Signatures:Latisha Rothman) (Signed 30-Mar-2018 18:09)Authored: Signature/Cosignature/Attest ationCo-Signer: Service, Subjective Data, Objective Data, Assessment and Plan,Signature/Cosignature/A ttestationKate Ayala (LITHOGRAPH PRESS OPERATOR [employer]INWARE-CUSTOMER SERVICE LEADER) (Signed 30-Mar-2018 15:06)Authored: Service, Subjective Data, Objective Data, Assessment and Plan,Signature/Cosignature/A ttestation Last Updated: 30-Mar-2018 18:09 by Latisha Rothman) Normal [facility] Daily Progress Note-Endocrin ologyon 03-30-2018 Protein mass conc Consult Type: subseq uent visit/care Service: Endocrinology Subjective Data:DON ELKINS is a 67 year old Male who is Hospital Day # 13. Objective Data: Objective Information:T TTIXNlA8Zzdtg51.07619421/659 6%Date/Time03/30 11: 13: 11: 13: 11:14Range(35.8C - 36.1C ) (74 - 91 ) (17 - 18 ) (120 - 159 )/ (63 - 92 ) (92%- 99% ) Pain with Activity reported at 03/30 7:51: 3Pain at Rest reported at 03/30 7:51: 3 Physical Exam: Constitutional: Well developed, awake/alert/oriented x3, no distress, alert andcooperativeGastrointestin al: Nondistended, soft, non-tender, no rebound tenderness orguarding, no masses palpable, no organomegaly, +BS, no bruitsSkin: Warm and dry, no lesions, no rashes Medication: Medications: Continuous Medications ---- 1. Nitroglycerin 50 mg/ D5W 250 mL Infusion: 10 mcg/min IntraVenous 2. Sodium Chloride 0.9% .: 250 mL IntraVenous Scheduled Medications ---- 1. Aspirin Chewable: 81 mg Oral Daily2. Atorvastatin: 40 mg Oral Daily3. Carvedilol: 12.5 mg Oral 2 Times a Day4. Chlorhexidine Gluconate 0.12% Mucous Mem: 15 mL Topical Morning andEvening5. Citalopram: 20 mg Oral Daily6. Docusate 50 mg - Senna 8.6 m tablet(s) Oral 2 Times a Day7. Fludrocortisone: 0.05 mg Oral 8. Heparin (Repeat Bolus) Injectable: 4000 unit(s) IntraVenous Push Every 5Rqssm1. Hydrocortisone: 10 mg Oral 10. Hydrocortisone: 5 mg Oral 11. Hydrocortisone: 2.5 mg Oral 12. Insulin Glargine (Lantus) Injectable: 20 unit(s) SubCutaneous Every 71Frwlh35. Insulin Lispro (HumaLOG) Injectable: 12 unit(s) SubCutaneous 3 Times aDay Before Meals14. Insulin Lispro Mild Corrective Scale: unit(s) SubCutaneous 3 Times a DayBefore Meals15. Levothyroxine: 150 microgram(s) Oral Daily16. Mupirocin 2%: 0.5 application(s) Each Nostril 2 Times a Day17. Pantoprazole: 40 mg Oral Daily18. rOPINIRole: 6 mg Oral 19. Sodium Chloride 0.65% Nasal Ohlman: 2 spray(s) Each Nostril 2 Times aDay PRN Medications ---- 1. Dextrose 50% in Water Injectable: 25 gram(s) IntraVenous Push Every 46Pqshngl8. Glucagon Injectable: 1 mg IntraMuscular Every 15 Minutes3. Nitroglycerin SubLingual: 0.4 mg SubLingual Every 5 Minutes4. Polyethylene Glycol: 17 gram(s) Oral Daily Recent Lab Results: Results: I have reviewed these laboratory results: Glucose_POCT Trending View Zeinjo71-Sfl-9206 12:06:00 30-Mar-2018 07:46:00 29-Mar-2018 20:49:00 29-Mar-2018 17:04:00 29-Mar-2018 13:15:00 29-Mar-2018 07:09:00 81-Aqb-334187:50:00 28-Mar-2018 16:38:00Glucose-VSTH083 H 153 H 244 H 258 H 217 H 186 H 271H 363 H Renal Function Panel Trending View Wtwnjj46-Eil-8955 19:58:00 28-Mar-2018 21:29:00Glucose, Scwui826 H 220 JFJ328 L 139K4.6 4.5CL99 103Bicarbonate, Serum19 L 27Anion Gap, Serum19 32YHV17 H 01PDNPQ9.32 H 1.44 HGFR-Non Rxiksviw95 A 49 AGFR- Ihqzixvl68 59 ACalcium, Serum9.3 9.5Phosphorus, Serum4.2 4.0ALB3.9 4.0 Assessment and Plan:Assessment: Mr. Elkins is a 67 yo WM with no known history of CAD, who has a past medicalhistory of HTN, HLD, T2DM, Colbert's disease, hypothyroidism, COPD, AKASH onCPAP, prostate ca s/p prostatectomy in 2011, and psoriasis [facility].Endocrine consulted fr evaluation of Colbert disease and treatment periop Patient was on supra-therapeutic dose of HCT 20-0-20 , fludrocortisone 0.1 ,mgdailyPatient has uncontrolled HTN and uncontrolled BSMost likely tomorrow (03/23) IVC filter placement Recommendations:1. Colbert's Disease-- Fludrocortisone 0.05 mg 4 times weekly ( and friday)-- Tomorrow please give Hydrocortisone 30 mg by mouth once at 5 am , check thecortisol level at 7 am , then continue Hydrocortisone as 25 mg IV h1fwcojthtdcchy as of 8 am. 2. T2DM-- Decrease lantus to 20 units tonight-- Lispro to 12 units TIDAC to be held off after dinner time dose tonight-- Continue ISS 2 units for every 50 above 150-- POCT AC and qHs-- Hypoglycemia protocol--Diabetic diet--will follow Please page with questions [phone] Patient seen and examined, plan discussed with Dr Quevedo Signature/Cosignature/Attest ation:Attending AttestationI saw and evaluated the patient. I [...] patient (as noted in the above attestation) [id number] Electronic Signatures:Starr Quevedo) (Signed 31-Mar-2018 10:06)Authored: Signature/Cosignature/Attest ationCo-Signer: Service, Subjective Data, Objective Data, Assessment and Plan,Signature/Cosignature/A ttestationHasmukh Stephenson (Resident)) (Signed 30-Mar-2018 15:28)Authored: Service, Subjective Data, Objective Data, Assessment and Plan,Signature/Cosignature/A ttestation Last Updated: 31-Mar-2018 10:06 by Starr Quevedo) Normal [facility] GLUCOSE-POCTon 03-30-2018 Glucose mass conc 207 mg/dL High 74 - 99 [facility] Comment on above: Performed By: #### G BECKY ####[id number] [place] [address] Glucose mass conc 216 mg/dL High 74 - 99 [facility] Comment on above: Performed By: #### G BECKY ####[id number] [place] [address] Glucose mass conc 205 mg/dL High 74 - 99 [facility] Comment on above: Performed By: #### G BECKY ####[id number] [place] [address] Glucose mass conc 153 mg/dL High 74 - 99 [facility] Comment on above: Performed By: #### G BECKY ####[id number] [id number] HEPARIN ASSAY,UFHon 03-30-20 18 HEPARIN ASSAY,UFH 0.4 IU/mL Normal [facility] Comment on above: Result Comment: The therapeutic reference range for UFH may be either 0.3-0.6 IU/mL or 0.3-0.7 IU/mL based on the clinical setting for anticoagulant therapy and the associated nomogram used. For heparin dosing guidelines based on clinical scenario and Heparin Assay results, please refer to local Pharmacy and the [facility] Guidelines for Anticoagulation therapy available on the [facility] intranet at:[email or web address] – [email or web address] [email or web address]_ [email or web address]_[email or web address] Performed By: #### H AUF ####[id number] [id number] LUPUS ANTICOAG. WITH INTERPR ETATION[JACK]on 03-30-2018 LA INTERPRETATION SEE BELOW Normal [facility] Comment on above: Result Comment: No e [...] individual patient. Performed By: #### L AI ####[id number] [id number] SCT CONFIRMATION 1.10 RATIO Normal [facility] Comment on above: Performed By: #### L AI ####[id number] [id number] SCT SCREEN 0.87 RATIO Normal [facility] Comment on above: Performed By: #### L AI ####[id number] [place] [address] SCT TEST RATIO 0.79 RATIO Normal <=1.16 [facility] Comment on above: Performed By: #### L AI ####[id number] [place] [address] DRVVT CONFIRMATION 0.98 RATIO Normal [facility] Comment on above: Performed By: #### L AI ####[id number] [place] [address] DRVVT SCREEN 1.02 RATIO Normal [facility] Comment on above: Performed By: #### L AI ####[id number] [place] [address] DRVVT TEST RATIO 1.03 RATIO Normal <=1.20 [facility] Comment on above: Performed By: #### L AI ####[id number] [place] [address] RENAL FUNCTION PANELon 03-30 Albumin mass conc 4.1 g/dL Normal 3.4 - 5.0 [facility] Comment on above: Performed By: #### R ENAL ####[id number] [place] [address] Anion gap 3 molar conc 16 mmol/L Normal 10 - 20 [facility] Comment on above: Performed By: #### R ENAL ####[id number] [place] [address] Calcium mass conc 9.5 mg/dL Normal 8.6 - 10.6 [facility] Comment on above: Performed By: #### R ENAL ####[id number] [place] [address] Chloride molar conc 101 mmol/L Normal 98 - 107 [facility] Comment on above: Performed By: #### R ENAL ####[id number] [place] [address] Creatinine mass conc 1.68 mg/dL High 0.50 - 1.30 [facility] Comment on above: Performed By: #### R ENAL ####[id number] [place] [address] GFR- AM. 50 mL/min/1.73m2 Abnormal >60 [facility] Comment on above: Result Comment: CALC ULATIONS OF ESTIMATED GFR ARE PERFORMED USING THE MDRD STUDY EQUATION FOR THE IDMS-TRACEABLE CREATININE METHODS. CLIN CHEM 2007;53:766-72 Performed By: #### R ENAL ####[id number] [place] [address] GFR-NON AM. 41 mL/min/1.73m2 Abnormal >60 [facility] Comment on above: Performed By: #### R ENAL ####[id number] [place] [address] Glucose mass conc 193 mg/dL High 74 - 99 [facility] Comment on above: Performed By: #### R ENAL ####[id number] [place] [address] HCO3 molar conc (Bld) 23 mmol/L Normal 21 - 32 [facility] Comment on above: Performed By: #### R ENAL ####[id number] [place] [address] Phosphate mass conc 4.5 mg/dL Normal 2.5 - 4.9 [facility] Comment on above: Result Comment: The performance characteristics of phosphorus testing in heparinized plasma have been validated by the individual laboratory site where testing is performed. Testing on heparinized plasma is not approved by the FDA; however, such approval is not necessary. Performed By: #### R ENAL ####[id number] [place] [address] Potassium molar conc 4.4 mmol/L Normal 3.5 - 5.3 [facility] Comment on above: Performed By: #### R ENAL ####[id number] [place] [address] Sodium molar conc 136 mmol/L Normal 136 - 145 [facility] Comment on above: Performed By: #### R ENAL ####[id number] [place] [address] Urea nitrogen mass conc 24 mg/dL High 6 - 23 [facility] Comment on above: Performed By: #### R ENAL ####[id number] [place] [address] TROPONIN Ion 03-30-2018 Troponin I.cardiac mass conc 0.64 ng/mL High 0.00 - 0.03 [facility] Comment on above: Result Comment: LESS THAN 0.04 NG/ML: NEGATIVEREPEAT TESTING IN FOUR TO SIX HOURSIF CLINICALLY INDICATED.0.04 - 0.5 NG/ML: CONSISTENT WITH POSSIBLECARDIAC DAMAGE AND POSSIBLE INCREASEDCLINICAL RISK.SERIAL MEASUREMENTS MAY HELP ASSESS EXTENT OFMYOCARDIAL DAMAGE.>0.5 NG/ML: CONSISTENT WITH CARDIAC DAMAGE,INCREASED CLINICAL RISK AND MYOCARDIALINFARCTION. SERIAL MEASUREMENTS MAY HELPASSESS EXTENT OF MYOCARDIAL DAMAGE..Note: Troponin I testing is performed using differenttesting methodology at [facility] than at [facility]. Direct result comparisons should onlybe made within the same method.. Patients receiving more than 5 mg/day of biotin may have interference in test results. A sample should be taken no sooner than eight hours after previous dose. Contact [phone] for additional information.This is a critical result.Per Laboratory policy, critical results for this testonly qualify to the call list once per 24 hours. Performed By: #### T ROP2 ####[id number] [place] [address] Troponin I.cardiac mass conc 0.94 ng/mL High 0.00 - 0.03 [facility] Comment on above: Result Comment: LESS THAN 0.04 NG/ML: NEGATIVEREPEAT TESTING IN FOUR TO SIX HOURSIF CLINICALLY INDICATED.0.04 - 0.5 NG/ML: CONSISTENT WITH POSSIBLECARDIAC DAMAGE AND POSSIBLE INCREASEDCLINICAL RISK.SERIAL MEASUREMENTS MAY HELP ASSESS EXTENT OFMYOCARDIAL DAMAGE.>0.5 NG/ML: CONSISTENT WITH CARDIAC DAMAGE,INCREASED CLINICAL RISK AND MYOCARDIALINFARCTION. SERIAL MEASUREMENTS MAY HELPASSESS EXTENT OF MYOCARDIAL DAMAGE..Note: Troponin I testing is performed using differenttesting methodology at [facility] than at [facility]. Direct result comparisons should onlybe made within the same method.. Patients receiving more than 5 mg/day of biotin may have interference in test results. A sample should be taken no sooner than eight hours after previous dose. Contact [phone] for additional information.This is a critical result.Per Laboratory policy, critical results for this testonly qualify to the call list once per 24 hours. Performed By: #### T ROP2 ####[id number] [place] [address] Troponin I.cardiac mass conc 0.54 ng/mL Critically high 0.00 - 0.03 [facility] Comment on above: Order Comment: TROP CALLED [...] testing is performed using differenttesting methodology at [facility] than at [facility]. Direct result comparisons should onlybe made within the same method.. Patients receiving more than 5 mg/day of biotin may have interference in test results. A sample should be taken no sooner than eight hours after previous dose. Contact [phone] for additional information.TROP CALLED RB TO SWEETIE MOLINA, 03/30/2018 07:28 Performed By: #### T ROP2 ####[id number] [place] [address] Troponin I.cardiac mass conc ng/mL Normal 0.00 - 0.03 [facility] Comment on above: Result Comment: LESS THAN 0.04 NG/ML: NEGATIVEREPEAT TESTING IN FOUR TO SIX HOURSIF CLINICALLY INDICATED.0.04 - 0.5 NG/ML: CONSISTENT WITH POSSIBLECARDIAC DAMAGE AND POSSIBLE INCREASEDCLINICAL RISK.SERIAL MEASUREMENTS MAY HELP ASSESS EXTENT OFMYOCARDIAL DAMAGE.>0.5 NG/ML: CONSISTENT WITH CARDIAC DAMAGE,INCREASED CLINICAL RISK AND MYOCARDIALINFARCTION. SERIAL MEASUREMENTS MAY HELPASSESS EXTENT OF MYOCARDIAL DAMAGE..Note: Troponin I testing is performed using differenttesting methodology at [facility] than at [facility]. Direct result comparisons should onlybe made within the same method.. Patients receiving more than 5 mg/day of biotin may have interference in test results. A sample should be taken no sooner than eight hours after previous dose. Contact [phone] for additional information. Performed By: #### T ROP2 ####[id number] [place] [address] TYPE + SCREENon 03-30-2018 ABO TYPE A Normal [facility] Comment on above: Performed By: #### T +S ####[id number] [place] [address] RH TYPE Positive Normal [facility] Comment on above: Performed By: #### T +S ####[id number] [place] [address] CBCon 03-29-2018 Erythrocyte distribution width Auto Ratio (RBC) 12.7 % Normal 11.5 - 14.5 [facility] Comment on above: Performed By: #### C BC ####[id number] [place] [address] Hematocrit Auto Volume Fraction (Bld) 40.1 % Low 41.0 - 52.0 [facility] Comment on above: Performed By: #### C BC ####[id number] [place] [address] Hemoglobin mass conc (Bld) 13.6 g/dL Normal 13.5 - 17.5 [facility] Comment on above: Performed By: #### C BC ####[id number] [place] [address] MCHC Auto mass conc (RBC) 33.9 g/dL Normal 32.0 - 36.0 [facility] Comment on above: Performed By: #### C BC ####[id number] [place] [address] MCV Auto Entitic volume (RBC) 92 fL Normal 80 - 100 [facility] Comment on above: Performed By: #### C BC ####[id number] [place] [address] Nucleated RBC/100 WBC Ratio (Bld) 0.0 /100 WBC Normal 0.0-0.0 [facility] Comment on above: Performed By: #### C BC ####[id number] [place] [address] Platelets Auto #/vol (Bld) 232 10*3/uL Normal 150 - 450 [facility] Comment on above: Performed By: #### C BC ####[id number] [place] [address] RBC Auto #/vol (Bld) 4.37 x10E12/L Low 4.50 - 5.90 [facility] Comment on above: Performed By: #### C BC ####[id number] [place] [address] WBC Auto #/vol (Bld) 9.1 10*3/uL Normal 4.4 - 11.3 [facility] Comment on above: Performed By: #### C BC ####[id number] [place] [address] Daily Progress Note-Cardiolo kathy 03-29-2018 Protein mass conc Service: Cardiology Subjective Data:DON ELKINS is a 67 year old Male who is Hospital Day # 12. Additional Information: Resting in bed, has been ambulating in halls, hypercoagulable work up pending - plan for OR Saturday 03/31- c/w Heparin gtt Objective Data: Objective Information:T MWAGZmW4Bkeoj70.94062734/909 5%Date/Time03/29 12: 12: 12: 12: 12:00Range(36C - 36.4C ) (67 - 92 ) (18 - 20 ) (131 - 161 )/ (70 - 93 ) (92% -96% ) Pain with Activity reported at 03/29 8:00: 0Pain at Rest reported at 03/29 8:00: 0 Ymvqhdf36/11 4:20: Weight in kg (Weight (kg)) 107.7105/29 4:20: Weight in lbs ((lbs)) 237.4 Physical Exam: Constitutional: Resting in bed, NADHead/Neck: No JVDRespiratory/Thorax: CTABCardiovascular: RRR, S1 F6Yeuubdfirogouora: soft, NT/NDExtremities: No LE edemaNeurological: alert and oriented w3Doztbyczsbqvo: Appropriate mood and behaviorSkin: psoriasis plaque over elbows and knees; otherwise warm and dry Medication: Medications: Continuous Medications ---- 1. Sodium Chloride 0.9% .: 250 mL IntraVenous Scheduled Medications ---- 1. Aspirin Chewable: 81 mg Oral Daily2. Atorvastatin: 40 mg Oral Daily3. Carvedilol: 12.5 mg Oral 2 Times a Day4. Citalopram: 20 mg Oral Daily5. Docusate 50 mg - Senna 8.6 m tablet(s) Oral 2 Times a Day6. Fludrocortisone: 0.05 mg Oral 7. Heparin (Repeat Bolus) Injectable: 4000 unit(s) IntraVenous Push Every 7Kvyku2. Hydrocortisone: 10 mg Oral 9. Hydrocortisone: 5 mg Oral 10. Hydrocortisone: 2.5 mg Oral 11. Insulin Glargine (Lantus) Injectable: 30 unit(s) SubCutaneous Every 73Mrdzv01. Insulin Lispro (HumaLOG) Injectable: 12 unit(s) SubCutaneous 3 Times aDay Before Meals13. Insulin Lispro Mild Corrective Scale: unit(s) SubCutaneous 3 Times a DayBefore Meals14. Levothyroxine: 150 microgram(s) Oral Daily15. Mupirocin 2%: 0.5 application(s) Each Nostril 2 Times a Day16. Pantoprazole: 40 mg Oral Daily17. rOPINIRole: 6 mg Oral 18. Sodium Chloride 0.65% Nasal Ohlman: 2 spray(s) Each Nostril 2 Times aDay PRN Medications ---- 1. Dextrose 50% in Water Injectable: 25 gram(s) IntraVenous Push Every 46Wblmhwa7. Glucagon Injectable: 1 mg IntraMuscular Every 15 Minutes3. Polyethylene Glycol: 17 gram(s) Oral Daily Currently Suspended Medications ---- 1. Chlorhexidine Gluconate 4% Topical: 1 application(s) Topical Once Recent Lab Results: Results: I have reviewed these laboratory results: Glucose_POCT Trending View [id number] 13:15:00 29-Mar-2018 07:09:00 28-Mar-2018 19:50:00 28-Mar-2018 16:38:00Glucose-NRQE579 H 186 H 271 H 363 H [...] and may make absolute Segmental Limb Pressures (RECREATION COORDINATOR) unreliable.Triphasic flow is noted in the left dorsalis pedis artery, left posteriortibial artery and left common femoral artery. [facility] LAB PVR (Arterial Physiologic) BROOKS [Mar 25 2018 7:15PM] Assessment and Plan:Assessment:67 yo M with HTN, DLD, T2DM, Addisson's, GERD, prostate ca s/p prostatectomy [id number], hypothyroidism, psoriasis, and most recently diagnosed with a PE andmultivessel CAD transferred to cardiology at [facility] from [facility] 03/18 for CABG eval. Multiple [...] 40 mg- Cardiac Cath uploaded: 03/16 at [facility] LM: 10-20%, LAD prox: 30%, LAD mid:95%, [...] Friday Seen and discussed with Dr. Arteaga Signature/Cosignature/Attest ation:Attending Only - Shared Visit with Advanced Practice ProviderThis is a sharedvisit. I have reviewed the Advanced Practice Providers encounter note,approve the Advanced Practice Providers documentation, and provide thefollowing additional information from my personal encounter.Comments/ Additional FindingsAwait CABG.Continue heparin gtt for PE. Electronic Signatures:Vito Patino (LITHOGRAPH PRESS OPERATOR TINWARE-CUSTOMER SERVICE LEADER) (Signed 29-Mar-2018 15:36)Authored: Service, Subjective Data, Objective Data, Assessment and Plan,Signature/Cosignature/A Leonel Zacariasram (MD) (Signed 29-Mar-2018 17:23)Authored: Signature/Cosignature/Attest ationCo-Signer: Service, Subjective Data, Objective Data, Assessment and Plan,Signature/Cosignature/A ttestation Last Updated: 29-Mar-2018 17:23 by Leonel Arteaga) Normal [facility] Daily Progress Note-Endocrin ologyon 03-29-2018 Protein mass conc Consult Type: subseq uent visit/care Service: Endocrinology Subjective Data:DON ELKINS is a 67 year old Male who is Hospital Day # 12. OR postponed till Friday. Objective Data: Objective Information:T SBWLSsP8Ejrvw51.42445620/859 6%Date/Time03/29 7: 7: 7: 7: 7:35Range(36C - 36.4C ) (67 - 92 ) (18 - 20 ) (131 - 161 )/ (70 - 93 ) (92% -96% ) Pain with Activity reported at 03/29 8:00: 0Pain at Rest reported at 03/29 8:00: 0 Physical Exam: Constitutional: Well developed, awake/alert/oriented x3, no distress, alert andcooperativeGastrointestin al: Nondistended, soft, non-tender, no rebound tenderness orguarding, no masses palpable, no organomegaly, +BS, no bruitsSkin: Warm and dry, no lesions, no rashes Medication: Medications: Continuous Medications ---- 1. Sodium Chloride 0.9% .: 250 mL IntraVenous Scheduled Medications ---- 1. Aspirin Chewable: 81 mg Oral Daily2. Atorvastatin: 40 mg Oral Daily3. Carvedilol: 12.5 mg Oral 2 Times a Day4. Citalopram: 20 mg Oral Daily5. Docusate 50 mg - Senna 8.6 m tablet(s) Oral 2 Times a Day6. Fludrocortisone: 0.05 mg Oral 7. Heparin (Repeat Bolus) Injectable: 4000 unit(s) IntraVenous Push Every 4Sdtsn9. Hydrocortisone: 10 mg Oral 9. Hydrocortisone: 5 mg Oral 10. Hydrocortisone: 2.5 mg Oral 11. Insulin Glargine (Lantus) Injectable: 30 unit(s) SubCutaneous Every 86Tbioi26. Insulin Lispro (HumaLOG) Injectable: 12 unit(s) SubCutaneous 3 Times aDay Before Meals13. Insulin Lispro Mild Corrective Scale: unit(s) SubCutaneous 3 Times a DayBefore Meals14. Levothyroxine: 150 microgram(s) Oral Daily15. Mupirocin 2%: 0.5 application(s) Each Nostril 2 Times a Day16. Pantoprazole: 40 mg Oral Daily17. rOPINIRole: 6 mg Oral 18. Sodium Chloride 0.65% Nasal Ohlman: 2 spray(s) Each Nostril 2 Times aDay PRN Medications ---- 1. Dextrose 50% in Water Injectable: 25 gram(s) IntraVenous Push Every 50Jtuasop0. Glucagon Injectable: 1 mg IntraMuscular Every 15 Minutes3. Polyethylene Glycol: 17 gram(s) Oral Daily Currently Suspended Medications ---- 1. Chlorhexidine Gluconate 4% Topical: 1 application(s) Topical Once Recent Lab Results: Results: I have reviewed these laboratory results: Glucose_POCT Trending View [id number] 07:09:00 28-Mar-2018 19:50:00 28-Mar-2018 16:38:00 28-Mar-2018 12:35:00 28-Mar-2018 07:38:00 27-Mar-2018 22:33:00Glucose-SXLK078 H 271 H 363 H 231 H [...] a past medicalhistory of HTN, HLD, T2DM, Colbert's disease, hypothyroidism, COPD, AKASH onCPAP, prostate ca s/p prostatectomy in 2011, and psoriasis who was [facility]to [facility] on 03/18 forCABG eval.Endocrine consulted fr evaluation of Colbert disease and treatment periop Patient was on supra-therapeutic dose of HCT 20-0-20 , fludrocortisone 0.1 ,mgdailyPatient has uncontrolled HTN and uncontrolled BSMost likely tomorrow (03/23) IVC filter placement Recommendations:1. Brigida's Disease-- Fludrocortisone 0.05 mg 4 times weekly ( and friday)-- Continue Hydrocortisone to 10-5-2.5 mg at [id number] DAILY as of tomorrow -On the day [...] protocol--Diabetic diet--will follow Please page with questions [phone] Patient seen and examined, plan discussed with Dr See Pimentel Signature/Cosignature/Attest ation:Attending AttestationI saw and evaluated the patient. I [...] patient (as noted in the above attestation) [id number] Electronic Signatures:Marisol Monet) (Signed 30-Mar-2018 14:34)Authored: Signature/Cosignature/Attest ationCo-Signer: Service, Subjective Data, Objective Data, Assessment and Plan,Signature/Cosignature/A ttestationHasmukh Stephenson (Resident)) (Signed 29-Mar-2018 11:39)Authored: Service, Subjective Data, Objective Data, Assessment and Plan,Signature/Cosignature/A ttestation Last Updated: 30-Mar-2018 14:34 by Marisol Monet) Normal [facility] GLUCOSE-POCTon 03-29-2018 Glucose mass conc 244 mg/dL High 74 - 99 [facility] Comment on above: Performed By: #### G BECKY ####[id number] [place] [address] Glucose mass conc 258 mg/dL High 74 - 99 [facility] Comment on above: Performed By: #### G BECKY ####[id number] [place] [address] Glucose mass conc 217 mg/dL High 74 - 99 [facility] Comment on above: Performed By: #### G BECKY ####[id number] [place] [address] Glucose mass conc 186 mg/dL High 74 - 99 [facility] Comment on above: Performed By: #### G BECKY ####[id number] [place] [address] HEPARIN ASSAY,UFHon 03-29-20 18 HEPARIN ASSAY,UFH 0.4 IU/mL Normal [facility] Comment on above: Result Comment: The therapeutic reference range for UFH may be either 0.3-0.6 IU/mL or 0.3-0.7 IU/mL based on the clinical setting for anticoagulant therapy and the associated nomogram used. For heparin dosing guidelines based on clinical scenario and Heparin Assay results, please refer to local Pharmacy and the [facility] Guidelines for Anticoagulation therapy available on the [facility] intranet at:[email or web address]_ [email or web address]_[email or web address].aspx Performed By: #### H AUF ####[id number] [place] [address] HEPARIN ASSAY,UFH 0.4 IU/mL Normal [facility] Comment on above: Result Comment: The therapeutic reference range for UFH may be either 0.3-0.6 IU/mL or 0.3-0.7 IU/mL based on the clinical setting for anticoagulant therapy and the associated nomogram used. For heparin dosing guidelines based on clinical scenario and Heparin Assay results, please refer to local Pharmacy and the [facility] Guidelines for Anticoagulation therapy available on the [facility] intranet at:[email or web address]_ ospitals_Guidelines_for_Anticoagu.aspx Performed By: #### H AUF ####[id number] [place] [address] RENAL FUNCTION PANELon 03-29 Albumin mass conc 3.9 g/dL Normal 3.4 - 5.0 [facility] Comment on above: Performed By: #### R ENAL ####[id number] [place] [address] Anion gap 3 molar conc 19 mmol/L Normal 10 - 20 [facility] Comment on above: Performed By: #### R ENAL ####[id number] [place] [address] Calcium mass conc 9.3 mg/dL Normal 8.6 - 10.6 [facility] Comment on above: Performed By: #### R ENAL ####[id number] [place] [address] Chloride molar conc 99 mmol/L Normal 98 - 107 [facility] Comment on above: Performed By: #### R ENAL ####[id number] [place] [address] Creatinine mass conc 1.32 mg/dL High 0.50 - 1.30 [facility] Comment on above: Performed By: #### R ENAL ####[id number] [place] [address] GFR- AM. 65 mL/min/1.73m2 Normal >60 [facility] Comment on above: Result Comment: CALC ULATIONS OF ESTIMATED GFR ARE PERFORMED USING THE MDRD STUDY EQUATION FOR THE IDMS-TRACEABLE CREATININE METHODS. CLIN CHEM 2007;53:766-72 Performed By: #### R ENAL ####[id number] [place] [address] GFR-NON AM. 54 mL/min/1.73m2 Abnormal >60 [facility] Comment on above: Performed By: #### R ENAL ####[id number] [place] [address] Glucose mass conc 237 mg/dL High 74 - 99 [facility] Comment on above: Performed By: #### R ENAL ####[id number] [place] [address] HCO3 molar conc (Bld) 19 mmol/L Low 21 - 32 [facility] Comment on above: Performed By: #### R ENAL ####[id number] [place] [address] Phosphate mass conc 4.2 mg/dL Normal 2.5 - 4.9 [facility] Comment on above: Result Comment: The performance characteristics of phosphorus testing in heparinized plasma have been validated by the individual laboratory site where testing is performed. Testing on heparinized plasma is not approved by the FDA; however, such approval is not necessary. Performed By: #### R ENAL ####[id number] [place] [address] Potassium molar conc 4.6 mmol/L Normal 3.5 - 5.3 [facility] Comment on above: Performed By: #### R ENAL ####[id number] [place] [address] Sodium molar conc 132 mmol/L Low 136 - 145 [facility] Comment on above: Performed By: #### R ENAL ####[id number] [place] [address] Urea nitrogen mass conc 24 mg/dL High 6 - 23 [facility] Comment on above: Performed By: #### R ENAL ####[id number] [place] [address] Albumin mass conc 4.0 g/dL Normal 3.4 - 5.0 [facility] Comment on above: Performed By: #### R ENAL ####[id number] [place] [address] Anion gap 3 molar conc 14 mmol/L Normal 10 - 20 [facility] Comment on above: Performed By: #### R ENAL ####[id number] [place] [address] Calcium mass conc 9.5 mg/dL Normal 8.6 - 10.6 [facility] Comment on above: Performed By: #### R ENAL ####[id number] [place] [address] Chloride molar conc 103 mmol/L Normal 98 - 107 [facility] Comment on above: Performed By: #### R ENAL ####[id number] [place] [address] Creatinine mass conc 1.44 mg/dL High 0.50 - 1.30 [facility] Comment on above: Performed By: #### R ENAL ####[id number] [place] [address] GFR- AM. 59 mL/min/1.73m2 Abnormal >60 [facility] Comment on above: Result Comment: CALC ULATIONS OF ESTIMATED GFR ARE PERFORMED USING THE MDRD STUDY EQUATION FOR THE IDMS-TRACEABLE CREATININE METHODS. CLIN CHEM 2007;53:766-72 Performed By: #### R ENAL ####[id number] [place] [address] GFR-NON AM. 49 mL/min/1.73m2 Abnormal >60 [facility] Comment on above: Performed By: #### R ENAL ####[id number] [place] [address] Glucose mass conc 220 mg/dL High 74 - 99 [facility] Comment on above: Performed By: #### R ENAL ####[id number] [place] [address] HCO3 molar conc (Bld) 27 mmol/L Normal 21 - 32 [facility] Comment on above: Performed By: #### R ENAL ####[id number] [place] [address] Phosphate mass conc 4.0 mg/dL Normal 2.5 - 4.9 [facility] Comment on above: Result Comment: The performance characteristics of phosphorus testing in heparinized plasma have been validated by the individual laboratory site where testing is performed. Testing on heparinized plasma is not approved by the FDA; however, such approval is not necessary. Performed By: #### R ENAL ####[id number] [place] [address] Potassium molar conc 4.5 mmol/L Normal 3.5 - 5.3 [facility] Comment on above: Performed By: #### R ENAL ####[id number] [place] [address] Sodium molar conc 139 mmol/L Normal 136 - 145 [facility] Comment on above: Performed By: #### R ENAL ####[id number] [place] [address] Urea nitrogen mass conc 23 mg/dL Normal 6 - 23 [facility] Comment on above: Performed By: #### R ENAL ####[id number] [place] [address] CBCon 03-28-2018 Erythrocyte distribution width Auto Ratio (RBC) 12.8 % Normal 11.5 - 14.5 [facility] Comment on above: Performed By: #### C BC ####[id number] [place] [address] Hematocrit Auto Volume Fraction (Bld) 41.4 % Normal 41.0 - 52.0 [facility] Comment on above: Performed By: #### C BC ####[id number] [place] [address] Hemoglobin mass conc (Bld) 13.9 g/dL Normal 13.5 - 17.5 [facility] Comment on above: Performed By: #### C BC ####[id number] [place] [address] MCHC Auto mass conc (RBC) 33.6 g/dL Normal 32.0 - 36.0 [facility] Comment on above: Performed By: #### C BC ####[id number] [place] [address] MCV Auto Entitic volume (RBC) 93 fL Normal 80 - 100 [facility] Comment on above: Performed By: #### C BC ####[id number] [place] [address] Nucleated RBC/100 WBC Ratio (Bld) 0.0 /100 WBC Normal 0.0-0.0 [facility] Comment on above: Performed By: #### C BC ####[id number] [place] [address] Platelets Auto #/vol (Bld) 230 10*3/uL Normal 150 - 450 [facility] Comment on above: Performed By: #### C BC ####[id number] [place] [address] RBC Auto #/vol (Bld) 4.46 x10E12/L Low 4.50 - 5.90 [facility] Comment on above: Performed By: #### C BC ####[id number] [place] [address] WBC Auto #/vol (Bld) 8.2 10*3/uL Normal 4.4 - 11.3 [facility] Comment on above: Performed By: #### C BC ####[id number] [place] [address] Daily Progress Note-Cardiolo kathy 03-28-2018 Protein mass conc Service: Cardiology Subjective Data:DON ELKINS is a 67 year old Male who is Hospital Day # 11. Additional Information: Resting in bed, has been ambulating in halls, hypercoagulable work up pending,BS better controlled - plan for OR Saturday 03/31- c/w Heparin gtt Objective Data: Objective Information:T AXOTJwX1Pyric30.82991207/819 6%Date/Time03/28 8: 8: 8: 8: 8:00Range(35.9C - 36.7C ) (71 - 85 ) (17 - 20 ) (125 - 165 )/ (72 - 97 ) (94%- 96% ) Pain at Rest reported at 03/28 0:05: 0 Jghnfsl56/10 3:52: Weight in kg (Weight (kg)) 107. 3:52: Weight in lbs ((lbs)) 237.2 Physical Exam: Constitutional: Resting in bed, NADHead/Neck: No JVDRespiratory/Thorax: CTABCardiovascular: RRR, S1 K5Ueduuepcdblshntl: soft, NT/NDExtremities: No LE edemaNeurological: alert and oriented j4Zmmsbwxgvmqbh: Appropriate mood and behaviorSkin: psoriasis plaque over elbows and knees; otherwise warm and dry Medication: Medications: Continuous Medications ---- 1. Sodium Chloride 0.9% .: 250 mL IntraVenous Scheduled Medications ---- 1. Aspirin Chewable: 81 mg Oral Daily2. Atorvastatin: 40 mg Oral Daily3. Carvedilol: 12.5 mg Oral 2 Times a Day4. Citalopram: 20 mg Oral Daily5. Docusate 50 mg - Senna 8.6 m tablet(s) Oral 2 Times a Day6. Fludrocortisone: 0.05 mg Oral 7. Heparin (Repeat Bolus) Injectable: 4000 unit(s) IntraVenous Push Every 4Apyge8. Hydrocortisone: 10 mg Oral 9. Hydrocortisone: 5 mg Oral 10. Hydrocortisone: 2.5 mg Oral 11. Insulin Glargine (Lantus) Injectable: 30 unit(s) SubCutaneous Every 73Aexex27. Insulin Lispro (HumaLOG) Injectable: 10 unit(s) SubCutaneous 3 Times aDay Before Meals13. Insulin Lispro Mild Corrective Scale: unit(s) SubCutaneous 3 Times a DayBefore Meals14. Levothyroxine: 150 microgram(s) Oral Daily15. Mupirocin 2%: 0.5 application(s) Each Nostril 2 Times a Day16. Pantoprazole: 40 mg Oral Daily17. rOPINIRole: 6 mg Oral 18. Sodium Chloride 0.65% Nasal Ohlman: 2 spray(s) Each Nostril 2 Times aDay PRN Medications ---- 1. Dextrose 50% in Water Injectable: 25 gram(s) IntraVenous Push Every 89Bggkino8. Glucagon Injectable: 1 mg IntraMuscular Every 15 Minutes3. Polyethylene Glycol: 17 gram(s) Oral Daily Currently Suspended Medications ---- 1. Chlorhexidine Gluconate 4% Topical: 1 application(s) Topical Once Recent Lab Results: Results: I have reviewed these laboratory results: Glucose_POCT Trending View [id number] 07:38:00 27-Mar-2018 22:33:00Glucose-INSL605 H 268 H Heparin assay, UFH 27-Mar-2018 [...] appear normal. Incompletepalmar arch with good collaterals. [facility] PVR (Arterial Physiologic) BROOKS [Mar 25 [...] and may make absolute Segmental Limb Pressures (RECREATION COORDINATOR) unreliable.Triphasic flow is noted in the left dorsalis pedis artery, left posteriortibial artery and left common femoral artery. [facility] PVR (Arterial Physiologic) BROOKS [Mar 25 2018 7:15PM] Assessment and Plan:Assessment:67 yo M with HTN, DLD, T2DM, Addisson's, GERD, prostate ca s/p prostatectomy [id number], hypothyroidism, psoriasis, and most recently diagnosed with a PE andmultivessel CAD transferred to cardiology at [facility] from [facility] 03/18 for CABG eval. 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 Arteaga Signature/Cosignature/Attest ation:Attending Only - Shared Visit with Advanced Practice ProviderThis is a sharedvisit. I have reviewed the Advanced Practice Providers encounter note,approve the Advanced Practice Providers documentation, and provide thefollowing additional information from my personal encounter.Comments/ Additional FindingsContinue anticoagulation with heparin gtt.Await CABG. Electronic Signatures:Vito Patino (LITHOGRAPH PRESS OPERATOR TINWARE-CUSTOMER SERVICE LEADER) (Signed 28-Mar-2018 10:27)Authored: Service, Subjective Data, Objective Data, Assessment and Plan,Signature/Cosignature/A ttestationLeonel Arteaga) (Signed 28-Mar-2018 20:06)Authored: Signature/Cosignature/Attest ationCo-Signer: Service, Subjective Data, Objective Data, Assessment and Plan,Signature/Cosignature/A ttestation Last Updated: 28-Mar-2018 20:06 by Leonel Arteaga) Normal [facility] GLUCOSE-POCTon 03-28-2018 Glucose mass conc 271 mg/dL High 74 - 99 [facility] Comment on above: Performed By: #### G BECKY ####[id number] [place] [address] Glucose mass conc 363 mg/dL High 74 - 99 [facility] Comment on above: Performed By: #### G BECKY ####[id number] [place] [address] Glucose mass conc 231 mg/dL High 74 - 99 [facility] Comment on above: Performed By: #### G BECKY ####[id number] [place] [address] Glucose mass conc 171 mg/dL High 74 - 99 [facility] Comment on above: Performed By: #### G BECKY ####[id number] [place] [address] Glucose mass conc 268 mg/dL High 74 - 99 [facility] Comment on above: Performed By: #### G BECKY ####[id number] [place] [address] RENAL FUNCTION PANELon 03-28 Albumin mass conc 3.9 g/dL Normal 3.4 - 5.0 [facility] Comment on above: Performed By: #### R ENAL ####[id number] [place] [address] Anion gap 3 molar conc 18 mmol/L Normal 10 - 20 [facility] Comment on above: Performed By: #### R ENAL ####[id number] [place] [address] Calcium mass conc 9.3 mg/dL Normal 8.6 - 10.6 [facility] Comment on above: Performed By: #### R ENAL ####[id number] [place] [address] Chloride molar conc 98 mmol/L Normal 98 - 107 [facility] Comment on above: Performed By: #### R ENAL ####[id number] [place] [address] Creatinine mass conc 1.48 mg/dL High 0.50 - 1.30 [facility] Comment on above: Performed By: #### R ENAL ####[id number] [place] [address] GFR- AM. 57 mL/min/1.73m2 Abnormal >60 [facility] Comment on above: Result Comment: CALC ULATIONS OF ESTIMATED GFR ARE PERFORMED USING THE MDRD STUDY EQUATION FOR THE IDMS-TRACEABLE CREATININE METHODS. CLIN CHEM 2007;53:766-72 Performed By: #### R ENAL ####[id number] [place] [address] GFR-NON AM. 47 mL/min/1.73m2 Abnormal >60 [facility] Comment on above: Performed By: #### R ENAL ####[id number] [place] [address] Glucose mass conc 202 mg/dL High 74 - 99 [facility] Comment on above: Performed By: #### R ENAL ####[id number] [place] [address] HCO3 molar conc (Bld) 23 mmol/L Normal 21 - 32 [facility] Comment on above: Performed By: #### R ENAL ####[id number] [place] [address] Phosphate mass conc 4.0 mg/dL Normal 2.5 - 4.9 [facility] Comment on above: Result Comment: The performance characteristics of phosphorus testing in heparinized plasma have been validated by the individual laboratory site where testing is performed. Testing on heparinized plasma is not approved by the FDA; however, such approval is not necessary. Performed By: #### R ENAL ####[id number] [place] [address] Potassium molar conc 4.2 mmol/L Normal 3.5 - 5.3 [facility] Comment on above: Performed By: #### R ENAL ####[id number] [place] [address] Sodium molar conc 135 mmol/L Low 136 - 145 [facility] Comment on above: Performed By: #### R ENAL ####[id number] [place] [address] Urea nitrogen mass conc 22 mg/dL Normal 6 - 23 [facility] Comment on above: Performed By: #### R ENAL ####[id number] [place] [address] Clinical Event Note-Revaluat ion of PEon 03-27-2018 [...] 07:25 by Princess Garnica ( (Fellow)) Normal [facility] Daily Progress Note-Cardiolo gyon 03-27-2018 Protein mass conc Service: Cardiology Subjective Data:DON ELKINS is a 67 year old Male who is Hospital Day # 10. Additional Information:Patient feeling well. Out of bed and ambulating. No CP or SOB. Cont heparingtt. - plan for OR Wednesday 03/28- will draw hypercoagulable labs- increase lispro to 10units TID AC Objective Data: Objective Information: T [id number]/849 4%Date/Time03/27 8: 8: 8: 8: 8:05Range(35.7C - 36.4C ) (73 - 78 ) (18 - 21 ) (122 - 152 )/ (78 - 84 ) (94%- 97% ) Clcnooa01/9 4:54: Weight in kg (Weight (kg)) 48115/9 4:54: Weight in lbs ((lbs)) 236 Physical Exam: Constitutional: Resting in bed, NADHead/Neck: No JVDRespiratory/Thorax: CTABCardiovascular: RRR, S1 T1Reoajojnvhksybhy: soft, NT/NDExtremities: No LE edemaNeurological: alert and oriented v0Tvjeiruqhgvss: Appropriate mood and behaviorSkin: psoriasis plaque over elbows and knees; otherwise warm and dry Medication: Medications: Continuous Medications ---- 1. Sodium Chloride 0.9% .: 250 mL IntraVenous Scheduled Medications ---- 1. Aspirin Chewable: 81 mg Oral Daily2. Atorvastatin: 40 mg Oral Daily3. Carvedilol: 12.5 mg Oral 2 Times a Day4. Citalopram: 20 mg Oral Daily5. Docusate 50 mg - Senna 8.6 m tablet(s) Oral 2 Times a Day6. Fludrocortisone: 0.05 mg Oral 7. Heparin (Repeat Bolus) Injectable: 4000 unit(s) IntraVenous Push Every 4Ufelj5. Hydrocortisone: 10 mg Oral 9. Hydrocortisone: 5 mg Oral 10. Hydrocortisone: 2.5 mg Oral 11. Insulin Glargine (Lantus) Injectable: 30 unit(s) SubCutaneous Every 25Qkjxc70. Insulin Lispro (HumaLOG) Injectable: 8 unit(s) SubCutaneous 3 Times aDay Before Meals13. Insulin Lispro Mild Corrective Scale: unit(s) SubCutaneous 3 Times a DayBefore Meals14. Levothyroxine: 150 microgram(s) Oral Daily15. Mupirocin 2%: 0.5 application(s) Each Nostril 2 Times a Day16. Pantoprazole: 40 mg Oral Daily17. rOPINIRole: 6 mg Oral 18. Sodium Chloride 0.65% Nasal Ohlman: 2 spray(s) Each Nostril 2 Times aDay PRN Medications ---- 1. Dextrose 50% in Water Injectable: 25 gram(s) IntraVenous Push Every 82Dtjdekx0. Glucagon Injectable: 1 mg IntraMuscular Every 15 Minutes3. Polyethylene Glycol: 17 gram(s) Oral Daily Currently Suspended Medications ---- 1. Chlorhexidine Gluconate 4% Topical: 1 application(s) Topical Once Recent Lab Results: Results: I have reviewed these laboratory results: Glucose_POCT Trending View Nhhfhp84-Xkg-8412 08:02:00 26-Mar-2018 21:14:00 26-Mar-2018 19:41:00 26-Mar-2018 15:43:00 26-Mar-2018 12:28:00 26-Mar-2018 07:27:00Glucose-JIKS368 H 302 H 237 H 256 H 285 H 154 H Complete Blood Count Trending View Trzkki86-Mqw-9590 16:27:00 26-Mar-2018 00:38:00White Blood Cell Count8.0 8.2Nucleated Erythrocyte Count0.0 0.0Red Blood Cell Count4.47 L 4.36 LHGB14.1 13.5HCT41.0 39.6 LMCV92 67DXGU51.4 34.8WOQ101 211RDW-CV12.8 12.9 Renal Function Panel Trending View Xgkvdk38-Ipc-1865 16:27:00 26-Mar-2018 00:38:00Glucose, Lvqhb182 H 153 GUH766 138K4.6 4.6SN318 102Bicarbonate, Serum25 24Anion Gap, Serum16 70WND28 19JUJAW1.46 H 1.40 HGFR-Non Wvuiijkk79 A 50 AGFR- Nulpqvub90 A 61Calcium, Serum9.4 9.3Phosphorus, Serum4.2 4.8ALB4.0 3.9 Heparin assay, UFH Trending View Sibtwn79-Epi-2729 16:27:00 26-Mar-2018 00:39:00Heparin assay, UFH0.3 0.4 Radiology [...] and may make absolute Segmental Limb Pressures (RECREATION COORDINATOR) unreliable.Triphasic flow is noted in the left dorsalis pedis artery, left posteriortibial artery and left common femoral artery. VASC LAB PVR (Arterial Physiologic) BROOKS [Mar 25 2018 7:15PM] Assessment and Plan:Assessment:67 yo M with HTN, DLD, T2DM, Addisson's, GERD, prostate ca s/p prostatectomy [id number], hypothyroidism, psoriasis, and most recently diagnosed with a PE andmultivessel CAD transferred to cardiology at [facility] from [facility] 03/18 for CABG eval. 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 Arteaga Signature/Cosignature/Attest ation:Attending Only - Shared Visit with Advanced Practice ProviderThis is a sharedvisit. I have reviewed the Advanced Practice Providers encounter note,approve the Advanced Practice Providers documentation, and provide thefollowing additional information from my personal encounter.Comments/ Additional FindingsContinue anticoagulation.Await CABG. Electronic Signatures:Leonel Arteaga) (Signed 28-Mar-2018 20:04)Authored: Signature/Cosignature/Attest ationCo-Signer: Service, Subjective Data, Objective Data, Assessment and PlanKate Ayala (LITHOGRAPH PRESS OPERATOR TINWARE-CUSTOMER SERVICE LEADER) (Signed 27-Mar-2018 16:37)Authored: Service, Subjective Data, Objective Data, Assessment and Plan Last Updated: 28-Mar-2018 20:04 by Leonel Arteaga) Normal [facility] Daily Progress Note-Endocrin cherie 03-27-2018 Protein mass conc Consult Type: subseq uent visit/care Service: Endocrinology Subjective Data:DON ELKINS is a 67 year old Male who is Hospital Day # 10. Objective Data: Objective Information:T RGDGNyB8Nzccf36.63497899/779 5%Date/Time03/27 15: 15: 15: 15: 15:43Range(35.9C - 36.5C ) (71 - 85 ) (17 - 21 ) (122 - 152 )/ (75 - 84 ) (94%- 97% ) Pain at Rest reported at 03/27 15:00: 0 Medication: Medications: Continuous Medications ---- 1. Sodium Chloride 0.9% .: 250 mL IntraVenous Scheduled Medications ---- 1. Aspirin Chewable: 81 mg Oral Daily2. Atorvastatin: 40 mg Oral Daily3. Carvedilol: 12.5 mg Oral 2 Times a Day4. Citalopram: 20 mg Oral Daily5. Docusate 50 mg - Senna 8.6 m tablet(s) Oral 2 Times a Day6. Fludrocortisone: 0.05 mg Oral 7. Heparin (Repeat Bolus) Injectable: 4000 unit(s) IntraVenous Push Every 8Mkxzw6. Hydrocortisone: 10 mg Oral 9. Hydrocortisone: 5 mg Oral 10. Hydrocortisone: 2.5 mg Oral 11. Insulin Glargine (Lantus) Injectable: 30 unit(s) SubCutaneous Every 08Bylin78. Insulin Lispro (HumaLOG) Injectable: 10 unit(s) SubCutaneous 3 Times aDay Before Meals13. Insulin Lispro Mild Corrective Scale: unit(s) SubCutaneous 3 Times a DayBefore Meals14. Levothyroxine: 150 microgram(s) Oral Daily15. Mupirocin 2%: 0.5 application(s) Each Nostril 2 Times a Day16. Pantoprazole: 40 mg Oral Daily17. rOPINIRole: 6 mg Oral 18. Sodium Chloride 0.65% Nasal Ohlman: 2 spray(s) Each Nostril 2 Times aDay PRN Medications ---- 1. Dextrose 50% in Water Injectable: 25 gram(s) IntraVenous Push Every 51Cacznnt8. Glucagon Injectable: 1 mg IntraMuscular Every 15 Minutes3. Polyethylene Glycol: 17 gram(s) Oral Daily Currently Suspended Medications ---- 1. Chlorhexidine Gluconate 4% Topical: 1 application(s) Topical Once Recent Lab Results: Results: I have reviewed these laboratory results: Glucose_POCT Trending View Ynqzrq75-Rxe-3773 16:33:00 27-Mar-2018 12:54:00 27-Mar-2018 08:02:00 26-Mar-2018 21:14:00 26-Mar-2018 19:41:00 26-Mar-2018 15:43:00 56-Vtc-696868:28:00 26-Mar-2018 07:27:00 25-Mar-2018 21:21:00Glucose-CBKC126 H 229 H 152 H 302 H 237 H 256 H 285H 154 H 181 H Renal Function Panel Trending View Zlrkqr42-Oir-6019 16:27:00 26-Mar-2018 00:38:00Glucose, Ilvwl103 H 153 MSO201 138K4.6 4.4SF828 102Bicarbonate, Serum25 24Anion Gap, Serum16 42YQM59 50UHHVD9.46 H 1.40 HGFR-Non Ztkchybb01 A 50 AGFR- Dlhoikpd06 A 61Calcium, Serum9.4 9.3Phosphorus, Serum4.2 4.8ALB4.0 3.9 Assessment and Plan:Assessment: Mr. 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 Colbert's Disease-- Fludrocortisone 0.05 mg 4 times weekly ( and friday)-- Continue Hydrocortisone to 10-5-2.5 mg at 3rs-45qy-6cu DAILY as of tomorrow -On the day [...] protocol--Diabetic diet--will follow Please page with questions [phone] Patient seen and examined, plan discussed with Dr Quevedo Signature/Cosignature/Attest ation:Attending AttestationI saw and evaluated the patient. I [...] patient (as noted in the above attestation) [id number] Electronic Signatures:Starr Quevedo) (Signed 31-Mar-2018 10:05)Authored: Signature/Cosignature/Attest ationCo-Signer: Service, Subjective Data, Objective Data, Assessment and Plan,Signature/Cosignature/A ttestationHasmukh Stephenson (Resident)) (Signed 27-Mar-2018 17:17)Authored: Service, Subjective Data, Objective Data, Assessment and Plan,Signature/Cosignature/A ttestation Last Updated: 31-Mar-2018 10:05 by Starr Quevedo) Normal [facility] GLUCOSE-POCTon 03-27-2018 Glucose mass conc 287 mg/dL High 74 - 99 [facility] Comment on above: Performed By: #### G BECKY ####[id number] [place] [address] Glucose mass conc 229 mg/dL High 74 - 99 [facility] Comment on above: Performed By: #### G BECKY ####[id number] [place] [address] Glucose mass conc 152 mg/dL High 74 - 99 [facility] Comment on above: Performed By: #### G BECKY ####[id number] [place] [address] HEPARIN ASSAY,UFHon 03-27-20 18 HEPARIN ASSAY,UFH 0.4 IU/mL Normal [facility] Comment on above: Result Comment: The therapeutic reference range for UFH may be either 0.3-0.6 IU/mL or 0.3-0.7 IU/mL based on the clinical setting for anticoagulant therapy and the associated nomogram used. For heparin dosing guidelines based on clinical scenario and Heparin Assay results, please refer to local Pharmacy and the [facility] Guidelines for Anticoagulation therapy available on the [facility] intranet at:[email or web address] Performed By: #### H AUF ####[id number] [place] [address] CBCon 03-26-2018 Erythrocyte distribution width Auto Ratio (RBC) 12.8 % Normal 11.5 - 14.5 [facility] Comment on above: Performed By: #### C BC ####[id number] [place] [address] Hematocrit Auto Volume Fraction (Bld) 41.0 % Normal 41.0 - 52.0 [facility] Comment on above: Performed By: #### C BC ####[id number] [place] [address] Hemoglobin mass conc (Bld) 14.1 g/dL Normal 13.5 - 17.5 [facility] Comment on above: Performed By: #### C BC ####[id number] [place] [address] MCHC Auto mass conc (RBC) 34.4 g/dL Normal 32.0 - 36.0 [facility] Comment on above: Performed By: #### C BC ####[id number] [place] [address] MCV Auto Entitic volume (RBC) 92 fL Normal 80 - 100 [facility] Comment on above: Performed By: #### C BC ####[id number] [place] [address] Nucleated RBC/100 WBC Ratio (Bld) 0.0 /100 WBC Normal 0.0-0.0 [facility] Comment on above: Performed By: #### C BC ####[id number] [place] [address] Platelets Auto #/vol (Bld) 231 10*3/uL Normal 150 - 450 [facility] Comment on above: Performed By: #### C BC ####[id number] [place] [address] RBC Auto #/vol (Bld) 4.47 x10E12/L Low 4.50 - 5.90 [facility] Comment on above: Performed By: #### C BC ####[id number] [place] [address] WBC Auto #/vol (Bld) 8.0 10*3/uL Normal 4.4 - 11.3 [facility] Comment on above: Performed By: #### C BC ####[id number] [place] [address] Erythrocyte distribution width Auto Ratio (RBC) 12.9 % Normal 11.5 - 14.5 [facility] Comment on above: Performed By: #### C BC ####[id number] [place] [address] Hematocrit Auto Volume Fraction (Bld) 39.6 % Low 41.0 - 52.0 [facility] Comment on above: Performed By: #### C BC ####[id number] [place] [address] Hemoglobin mass conc (Bld) 13.5 g/dL Normal 13.5 - 17.5 [facility] Comment on above: Performed By: #### C BC ####[id number] [place] [address] MCHC Auto mass conc (RBC) 34.1 g/dL Normal 32.0 - 36.0 [facility] Comment on above: Performed By: #### C BC ####[id number] [place] [address] MCV Auto Entitic volume (RBC) 91 fL Normal 80 - 100 [facility] Comment on above: Performed By: #### C BC ####[id number] [place] [address] Nucleated RBC/100 WBC Ratio (Bld) 0.0 /100 WBC Normal 0.0-0.0 [facility] Comment on above: Performed By: #### C BC ####[id number] [place] [address] Platelets Auto #/vol (Bld) 211 10*3/uL Normal 150 - 450 [facility] Comment on above: Performed By: #### C BC ####[id number] RBC Auto #/vol (Bld) 4.36 x10E12/L Low 4.50 - 5.90 [facility] Comment on above: Performed By: #### C BC ####[id number] [place] [address] WBC Auto #/vol (Bld) 8.2 10*3/uL Normal 4.4 - 11.3 [facility] Comment on above: Performed By: #### C BC ####[id number] [place] [address] Consulton 03-26-2018 Consult Allergies: No Known Allergies: Assessment:S: Dental consult requestedprior to CAB surgery due to suspected PARL presenton gonzalez. Pt reports no symptomsO: Periodontal disease present. No signs of gross decay detected clinically.Absence of swelling, oral pathology, abscess clinically. Review gonzaelz- nopresence of PARL suspected and no cause of possible infection.A:P: No extractions recommended prior to surgery Signature/Cosignature/Attest ation:Attending AttestationI reviewed the resident/fellows documentation anddiscussed the patient with the resident/fellow. I agree with theresident/fellows medical decision making as documented in the residents note. Electronic Signatures:Amador Joel (DDS) (Signed 06-Apr-2018 17:31)Authored: Signature/Cosignature/Attest ationCo-Signer: Allergies, Assessment/Recommendations,S ignature/Cosignature/Attesta tiCarolyn Liu (DDS) (Signed 26-Mar-2018 17:32)Authored: Allergies, Assessment/Recommendations,S ignature/Cosignature/Attesta tion Last Updated: 06-Apr-2018 17:31 by Amador Joel (DDS) Normal [facility] Daily Progress Note-Cardiac Surgeryon 03-26-2018 Protein mass conc Service: Cardiac Iris dane Subjective Data:DON ELKINS is a 67 year old Male who is Hospital Day # 9. Objective Data: Objective Information: T WJWYUoK7Byfjf72.58788447/819 5%Date/Time03/26 11: 11: 11: 11: 11:45Range(35.9C - 36.8C ) (67 - 75 ) (17 - 18 ) (124 - 173 )/ (77 - 84 ) (95%- 97% ) Pain with Activity reported at 03/26 15:37: 0Pain at Rest reported at 03/26 15:37: 0 Dpkmlty53/8 3:38: Weight in kg (Weight (kg)) 107.211 3:38: Weight in lbs ((lbs)) 236.3 Medication: Medications: Continuous Medications ---- 1. Sodium Chloride 0.9% .: 250 mL IntraVenous Scheduled Medications ---- 1. Aspirin Chewable: 81 mg Oral Daily2. Atorvastatin: 40 mg Oral Daily3. Carvedilol: 12.5 mg Oral 2 Times a Day4. Citalopram: 20 mg Oral Daily5. Docusate 50 mg - Senna 8.6 m tablet(s) Oral 2 Times a Day6. Fludrocortisone: 0.05 mg Oral 7. Heparin (Repeat Bolus) Injectable: 4000 unit(s) IntraVenous Push Every 5Wxlic2. Hydrocortisone: 10 mg Oral 9. Hydrocortisone: 5 mg Oral 10. Hydrocortisone: 2.5 mg Oral 11. Insulin Glargine (Lantus) Injectable: 30 unit(s) SubCutaneous Every 26Klxzp01. Insulin Lispro (HumaLOG) Injectable: 8 unit(s) SubCutaneous 3 Times aDay Before Meals13. Insulin Lispro Mild Corrective Scale: unit(s) SubCutaneous 3 Times a DayBefore Meals14. Levothyroxine: 150 microgram(s) Oral Daily15. Mupirocin 2%: 0.5 application(s) Each Nostril 2 Times a Day16. Pantoprazole: 40 mg Oral Daily17. Polyethylene Glycol: 17 gram(s) Oral Daily18. rOPINIRole: 6 mg Oral 19. Sodium Chloride 0.65% Nasal Ohlman: 2 spray(s) Each Nostril 2 Times aDay PRN Medications ---- 1. Dextrose 50% in Water Injectable: 25 gram(s) IntraVenous Push Every 29Skqkent4. Glucagon Injectable: 1 mg IntraMuscular Every 15 Minutes Currently Suspended Medications ---- 1. Chlorhexidine Gluconate 4% Topical: 1 application(s) Topical Once Recent Lab Results: Results: I have reviewed these laboratory results: Glucose_POCT Trending View [id number]-Dwi-2934 12:28:00 26-Mar-2018 07:27:00Glucose-SJFD513 H 154 H Heparin assay, UFH 26-Mar-2018 [...] and may make absolute Segmental Limb Pressures (RECREATION COORDINATOR) unreliable.Triphasic flow is noted in the left [...] A4C: 17.4cm2LA Area A2C: 14.2 cm2LA [place] A4C: 6.0 cmLA [place] A2C: 4.7 cmLA Volume Index: 15.2 ml/m2RA VOLUME BY A/L METHOD: Normal Ranges:RA Area A4C: 12.8 yj1U-TZMQ MEASUREMENTS: Normal Ranges:Ao Root: 2.90 cm (2.0-3.7cm)LAs: [...] a past medical history of HTN,HLD, T2DM, Colbert's disease, hypothyroidism, COPD, AKASH on CPAP, prostate spring/p prostatectomy in 2011, and psoriasis [facility] on 03/18 for CABG eval. Ptpresented to [place] with chest pressure and dyspnea. He as found to havebilat PEs, was started on Heparin gtt, and transferred to [facility]. He wasfound to have a troponin leak at 2.25. Cardiology was consulted and the patientwas diagnosed with ACS, NSTEMI. He underwent a TTE and cath. He had normal EF,mild AI, and triple vessel CAD so was transferred to [facility] for CABG eval. Cardiac surgery consulted 03/19 [...] surgery immediately if the patient deteriorates clinically Signature/Cosignature/Attest ation:Provider/Team Contact Info-Pager Numbercardiac surgery [phone] Electronic Signatures:Alexandra Milligan (PAC) (Signed 26-Mar-2018 16:11)Authored: Service, Subjective Data, Objective Data, Assessment and Plan,Signature/Cosignature/A ttestation Last Updated: 26-Mar-2018 16:11 by Alexandra Milligan (PAC) Normal [facility] Daily Progress Note-Yann chavez 03-26-2018 Protein mass conc Service: Cardiology Subjective Data:DON ELKINS is a 67 year old Male who is Hospital Day # 9. Additional Information:No changes in plan today, awaiting OR Friday. cont heparin gtt. No changes perEndo recs. - no changes Objective Data: Objective Information: T YYRZHzF7Inkze92.11634624/819 5%Date/Time03/26 11: 11: 11: 11: 11:45Range(35.9C - 36.8C ) (67 - 75 ) (17 - 18 ) (124 - 173 )/ (77 - 84 ) (95%- 97% ) Wrolsns62/8 3:38: Weight in kg (Weight (kg)) 107. 3:38: Weight in lbs ((lbs)) 236.3 Physical Exam: Constitutional: Resting in bed, NADHead/Neck: No JVDRespiratory/Thorax: CTABCardiovascular: RRR, S1 A5Ppygvfefbisvtlpz: soft, NT/NDExtremities: No LE edemaNeurological: alert and oriented y3Sxefilqfcigau: Appropriate mood and behaviorSkin: psoriasis plaque over elbows and knees; otherwise warm and dry Medication: Medications: Continuous Medications ---- 1. Sodium Chloride 0.9% .: 250 mL IntraVenous Scheduled Medications ---- 1. Aspirin Chewable: 81 mg Oral Daily2. Atorvastatin: 40 mg Oral Daily3. Carvedilol: 12.5 mg Oral 2 Times a Day4. Citalopram: 20 mg Oral Daily5. Docusate 50 mg - Senna 8.6 m tablet(s) Oral 2 Times a Day6. Fludrocortisone: 0.05 mg Oral 7. Heparin (Repeat Bolus) Injectable: 4000 unit(s) IntraVenous Push Every 0Tclfy6. Hydrocortisone: 10 mg Oral 9. Hydrocortisone: 5 mg Oral 10. Hydrocortisone: 2.5 mg Oral 11. Insulin Glargine (Lantus) Injectable: 30 unit(s) SubCutaneous Every 44Triez79. Insulin Lispro (HumaLOG) Injectable: 8 unit(s) SubCutaneous 3 Times aDay Before Meals13. Insulin Lispro Mild Corrective Scale: unit(s) SubCutaneous 3 Times a DayBefore Meals14. Levothyroxine: 150 microgram(s) Oral Daily15. Mupirocin 2%: 0.5 application(s) Each Nostril 2 Times a Day16. Pantoprazole: 40 mg Oral Daily17. Polyethylene Glycol: 17 gram(s) Oral Daily18. rOPINIRole: 6 mg Oral 19. Sodium Chloride 0.65% Nasal [place]lman: 2 spray(s) Each Nostril 2 Times aDay PRN Medications ---- 1. Dextrose 50% in Water Injectable: 25 gram(s) IntraVenous Push Every 45Zftkcei6. Glucagon Injectable: 1 mg IntraMuscular Every 15 Minutes Currently Suspended Medications ---- 1. Chlorhexidine Gluconate 4% Topical: 1 application(s) Topical Once Recent Lab Results: Results: I have reviewed these laboratory results: Glucose_POCT Trending View Hudnly86-Yag-3610 12:28:00 26-Mar-2018 07:27:00 25-Mar-2018 21:21:00 25-Mar-2018 16:15:00 25-Mar-2018 11:19:00 25-Mar-2018 07:47:00Glucose-PDYM265 H 154 H 181 H 306 H 291 H 163 H Heparin assay, UFH Trending View Arffxj34-Lve-0521 00:39:00 25-Mar-2018 07:31:00Heparin assay, UFH0.4 0.4 Complete [...] and may make absolute Segmental Limb Pressures (RECREATION COORDINATOR) unreliable.Triphasic flow is noted in the left dorsalis pedis artery, left posteriortibial artery and left common femoral artery. VASC LAB PVR (Arterial Physiologic) BROOKS [Mar 25 2018 7:15PM] Assessment and Plan:Assessment:67 yo M with HTN, DLD, T2DM, Addisson's, GERD, prostate ca s/p prostatectomy [id number], hypothyroidism, psoriasis, and most recently diagnosed with a PE andmultivessel CAD transferred to cardiology at [facility] from [facility] 03/18 for CABG eval. 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 Arteaga Signature/Cosignature/Attest ation:Provider/Team Contact Info-Pager [phone] Only - Shared Visit with Advanced Practice ProviderThis is a sharedvisit. I have reviewed the Advanced Practice Providers encounter note,approve the Advanced Practice Providers documentation, and provide thefollowing additional information from my personal encounter.Comments/ Additional FindingsContinue heparin gtt.Await CABG next week. Electronic Signatures:Leonel Arteaga) (Signed 28-Mar-2018 19:47)Authored: Signature/Cosignature/Attest ationCo-Signer: Service, Subjective Data, Objective Data, Assessment and Plan,Signature/Cosignature/A ttestationKate Ayala (LITHOGRAPH PRESS OPERATOR TINWARE-CUSTOMER SERVICE LEADER) (Signed 26-Mar-2018 16:20)Authored: Service, Subjective Data, Objective Data, Assessment and Plan,Signature/Cosignature/A ttestation Last Updated: 28-Mar-2018 19:47 by Leonel Arteaga) Normal [facility] Daily Progress Note-Endocrin ologyon 03-26-2018 Protein mass conc Service: Endocrinolo gy Subjective Data:DON ELKINS is a 67 year old Male who is Hospital Day # 9. 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 Colbert's Disease-- Fludrocortisone 0.05 mg 4 times weekly ( and friday)-- Continue Hydrocortisone to 10-5-2.5 mg at 0ax-20yc-4lq DAILY as of tomorrow -On the day [...] protocol--Diabetic diet--will follow Please page with questions [phone] Patient seen and examined, plan discussed with Dr Quevedo Signature/Cosignature/Attest ation:Attending AttestationI saw and evaluated the patient. I [...] patient (as noted in the above attestation) [id number] Electronic Signatures:Starr Quevedo) (Signed 28-Mar-2018 09:07)Authored: Service, Signature/Cosignature/Attest ationCo-Signer: Subjective Data, Objective Data, Assessment and Plan,Signature/Cosignature/A ttestationHasmukh Stephenson (Resident)) (Signed 26-Mar-2018 11:56)Authored: Subjective Data, Objective Data, Assessment and Plan,Signature/Cosignature/A ttestation Last Updated: 28-Mar-2018 09:07 by Starr Quevedo) Normal [facility] GLUCOSE-POCTon 03-26-2018 Glucose mass conc 302 mg/dL High 74 - 99 [facility] Comment on above: Performed By: #### G BECKY ####[id number] [place] [address] Glucose mass conc 237 mg/dL High 74 - 99 [facility] Comment on above: Performed By: #### G BECKY ####[id number] [place] [address] Glucose mass conc 256 mg/dL High 74 - 99 [facility] Comment on above: Performed By: #### G BECKY ####[id number] [place] [address] Glucose mass conc 285 mg/dL High 74 - 99 [facility] Comment on above: Performed By: #### G BECKY ####[id number] [place] [address] Glucose mass conc 154 mg/dL High 74 - 99 [facility] Comment on above: Performed By: #### G BECKY ####[id number] [place] [address] HEPARIN ASSAY,UFHon 03-26-20 18 HEPARIN ASSAY,UFH 0.3 IU/mL Normal [facility] Comment on above: Result Comment: The therapeutic reference range for UFH may be either 0.3-0.6 IU/mL or 0.3-0.7 IU/mL based on the clinical setting for anticoagulant therapy and the associated nomogram used. For heparin dosing guidelines based on clinical scenario and Heparin Assay results, please refer to local Pharmacy and the [facility] Guidelines for Anticoagulation therapy available on the [facility] intranet at:[email or web address] [email or web address] Managementmad[email or web address]/Pages/Solgohachia_ ospitals_Guidelines_for_Anticoagu.aspx Performed By: #### H AUF ####[id number] [place] [address] HEPARIN ASSAY,UFH 0.4 IU/mL Normal [facility] Comment on above: Result Comment: The therapeutic reference range for UFH may be either 0.3-0.6 IU/mL or 0.3-0.7 IU/mL based on the clinical setting for anticoagulant therapy and the associated nomogram used. For heparin dosing guidelines based on clinical scenario and Heparin Assay results, please refer to local Pharmacy and the [facility] Guidelines for Anticoagulation therapy available on the [facility] intranet at:[email or web address]/Pharmacy/Pages/Solgohachia_ ospitals_Guidelines_for_Anticoagu.aspx Performed By: #### H AUF ####[id number] [place] [address] PLATELETSon 03-26-2018 Platelets Auto #/vol (Bld) ORDER RECD Normal [facility] Comment on above: Result Comment: If t his patient is Rh Negative and if the Plateletproduct transfused is Rh Positive, review the useof WinRho Prophylaxis for this patient. Performed By: #### P LT ####[id number] [place] [address] RENAL FUNCTION PANELon 03-26 Albumin mass conc 4.0 g/dL Normal 3.4 - 5.0 [facility] Comment on above: Performed By: #### R ENAL ####[id number] [place] [address] Anion gap 3 molar conc 16 mmol/L Normal 10 - 20 [facility] Comment on above: Performed By: #### R ENAL ####[id number] [place] [address] Calcium mass conc 9.4 mg/dL Normal 8.6 - 10.6 [facility] Comment on above: Performed By: #### R ENAL ####[id number] [place] [address] Chloride molar conc 100 mmol/L Normal 98 - 107 [facility] Comment on above: Performed By: #### R ENAL ####[id number] [place] [address] Creatinine mass conc 1.46 mg/dL High 0.50 - 1.30 [facility] Comment on above: Performed By: #### R ENAL ####[id number] [place] [address] GFR- AM. 58 mL/min/1.73m2 Abnormal >60 [facility] Comment on above: Result Comment: CALC ULATIONS OF ESTIMATED GFR ARE PERFORMED USING THE MDRD STUDY EQUATION FOR THE IDMS-TRACEABLE CREATININE METHODS. CLIN CHEM 2007;53:766-72 Performed By: #### R ENAL ####[id number] [place] [address] GFR-NON AM. 48 mL/min/1.73m2 Abnormal >60 [facility] Comment on above: Performed By: #### R ENAL ####[id number] [place] [address] Glucose mass conc 231 mg/dL High 74 - 99 [facility] Comment on above: Performed By: #### R ENAL ####[id number] [place] [address] HCO3 molar conc (Bld) 25 mmol/L Normal 21 - 32 [facility] Comment on above: Performed By: #### R ENAL ####[id number] [place] [address] Phosphate mass conc 4.2 mg/dL Normal 2.5 - 4.9 [facility] Comment on above: Result Comment: The performance characteristics of phosphorus testing in heparinized plasma have been validated by the individual laboratory site where testing is performed. Testing on heparinized plasma is not approved by the FDA; however, such approval is not necessary. Performed By: #### R ENAL ####[id number] [place] [address] Potassium molar conc 4.6 mmol/L Normal 3.5 - 5.3 [facility] Comment on above: Performed By: #### R ENAL ####[id number] [place] [address] Sodium molar conc 136 mmol/L Normal 136 - 145 [facility] Comment on above: Performed By: #### R ENAL ####[id number] [place] [address] Urea nitrogen mass conc 21 mg/dL Normal 6 - 23 [facility] Comment on above: Performed By: #### R ENAL ####[id number] [place] [address] Albumin mass conc 3.9 g/dL Normal 3.4 - 5.0 [facility] Comment on above: Performed By: #### R ENAL ####[id number] [place] [address] Anion gap 3 molar conc 16 mmol/L Normal 10 - 20 [facility] Comment on above: Performed By: #### R ENAL ####[id number] [place] [address] Calcium mass conc 9.3 mg/dL Normal 8.6 - 10.6 [facility] Comment on above: Performed By: #### R ENAL ####[id number] [place] [address] Chloride molar conc 102 mmol/L Normal 98 - 107 [facility] Comment on above: Performed By: #### R ENAL ####[id number] [place] [address] Creatinine mass conc 1.40 mg/dL High 0.50 - 1.30 [facility] Comment on above: Performed By: #### R ENAL ####[id number] [place] [address] GFR- AM. 61 mL/min/1.73m2 Normal >60 [facility] Comment on above: Result Comment: CALC ULATIONS OF ESTIMATED GFR ARE PERFORMED USING THE MDRD STUDY EQUATION FOR THE IDMS-TRACEABLE CREATININE METHODS. CLIN CHEM 2007;53:766-72 Performed By: #### R ENAL ####[id number] [place] [address] GFR-NON AM. 50 mL/min/1.73m2 Abnormal >60 [facility] Comment on above: Performed By: #### R ENAL ####[id number] [place] [address] Glucose mass conc 153 mg/dL High 74 - 99 [facility] Comment on above: Performed By: #### R ENAL ####[id number] [place] [address] HCO3 molar conc (Bld) 24 mmol/L Normal 21 - 32 [facility] Comment on above: Performed By: #### R ENAL ####[id number] [place] [address] Phosphate mass conc 4.8 mg/dL Normal 2.5 - 4.9 [facility] Comment on above: Result Comment: The performance characteristics of phosphorus testing in heparinized plasma have been validated by the individual laboratory site where testing is performed. Testing on heparinized plasma is not approved by the FDA; however, such approval is not necessary. Performed By: #### R ENAL ####[id number] [place] [address] Potassium molar conc 4.3 mmol/L Normal 3.5 - 5.3 [facility] Comment on above: Performed By: #### R ENAL ####[id number] [place] [address] Sodium molar conc 138 mmol/L Normal 136 - 145 [facility] Comment on above: Performed By: #### R ENAL ####[id number] [place] [address] Urea nitrogen mass conc 22 mg/dL Normal 6 - 23 [facility] Comment on above: Performed By: #### R ENAL ####[id number] [place] [address] REQUEST-LEUKOREDUCED RED HERI LSon 03-26-2018 REQUEST-LEUKOREDUCE D RED CELLS ORDER RECD Normal [facility] Comment on above: Performed By: #### O FILLER MACHINE OPERATOR ####[id number] [place] [address] STAPH/MRSA SCREENon 03-26-20 18 STAPH/MRSA SCREEN TEST STAPH/MRSA SCRE EN WAS CANCELLED, 03/26/2018 17:39 ?Cancel Reason: Discontinued.PATIENT: DON ELKINS LOCATION: [place] [id number]#: [id number] : 50 AGE: SEX: M ORDERED BY: MONI MILLIGAN: ANTERIOR NARES COLLECTED: 03/26/18 17:39ANTIBIOTICS AT JIMENA.: RECEIVED : SITE: NARES R E S U L T S STAPH/MRSA SCREEN CANCELLED 03/26/18 17:55 Normal [facility] Comment on above: Performed By: #### S TAPH ####[id number] [place] [address] CBCon 03-25-2018 Erythrocyte distribution width Auto Ratio (RBC) 13.0 % Normal 11.5 - 14.5 [facility] Comment on above: Performed By: #### G BECKY ####[id number] [place] [address] Hematocrit Auto Volume Fraction (Bld) 38.4 % Low 41.0 - 52.0 [facility] Comment on above: Performed By: #### G BECKY ####[id number] [place] [address] Hemoglobin mass conc (Bld) 12.9 g/dL Low 13.5 - 17.5 [facility] Comment on above: Performed By: #### G BECKY ####[id number] [place] [address] MCHC Auto mass conc (RBC) 33.6 g/dL Normal 32.0 - 36.0 [facility] Comment on above: Performed By: #### G BECKY ####[id number] [place] [address] MCV Auto Entitic volume (RBC) 94 fL Normal 80 - 100 [facility] Comment on above: Performed By: #### G BECKY ####[id number] [place] [address] Nucleated RBC/100 WBC Ratio (Bld) 0.0 /100 WBC Normal 0.0-0.0 [facility] Comment on above: Performed By: #### G BECKY ####[id number] [place] [address] Platelets Auto #/vol (Bld) 219 10*3/uL Normal 150 - 450 [facility] Comment on above: Performed By: #### G BECKY ####[id number] [place] [address] RBC Auto #/vol (Bld) 4.10 x10E12/L Low 4.50 - 5.90 [facility] Comment on above: Performed By: #### G BECKY ####[id number] [place] [address] WBC Auto #/vol (Bld) 8.2 10*3/uL Normal 4.4 - 11.3 [facility] Comment on above: Performed By: #### G BECKY ####[id number] [place] [address] Daily Progress Note-Cardiolo kathy 03-25-2018 Protein mass conc Service: Cardiology Subjective Data:DON ELKINS is a 67 year old Male who is Hospital Day # 8. Additional Information:BP remains of 130s-150s/60-80s, BS improved to 160s this AM - c/w Heparin gtt- c/w Lantus 25 units daily and Lispro 6 units before meals- Plan for CABG next week Objective Data: Objective Information:T QNAQKoQ2Mlfpq21.22296970/849 7%Date/Time03/25 8: 8: 8: 8: 8:13Range(35.8C - 36.8C ) (68 - 86 ) (16 - 18 ) (128 - 166 )/ (80 - 85 ) (96%- 98% ) Pain with Activity reported at 03/25 0:10: 0Pain at Rest reported at 03/25 0:10: 0 Uxqevzr97/7 3:46: Weight in kg (Weight (kg)) 107.9105/25 3:46: Weight in lbs ((lbs)) 237.8 Physical Exam: Constitutional: Resting in bed, NADHead/Neck: No JVDRespiratory/Thorax: CTABCardiovascular: RRR, S1 R9Hkjonzwatfqdnvke: soft, NT/NDExtremities: No edemaNeurological: alert and oriented z3Osyaglnrevnvz: Appropriate mood and behaviorSkin: psoriasis plaque over elbows and knees; otherwise warm and dry; rightgroin drsg intact Medication: Medications: Continuous Medications ---- 1. Sodium Chloride 0.9% .: 250 mL IntraVenous Scheduled Medications ---- 1. Aspirin Chewable: 81 mg Oral Daily2. Atorvastatin: 40 mg Oral Daily3. Carvedilol: 12.5 mg Oral 2 Times a Day4. Citalopram: 20 mg Oral Daily5. Docusate 50 mg - Senna 8.6 m tablet(s) Oral 2 Times a Day6. Fludrocortisone: 0.05 mg Oral 7. Heparin (Repeat Bolus) Injectable: 4000 unit(s) IntraVenous Push Every 5Skfgm1. Hydrocortisone: 10 mg Oral 9. Hydrocortisone: 5 mg Oral 10. Hydrocortisone: 2.5 mg Oral 11. Insulin Glargine (Lantus) Injectable: 25 unit(s) SubCutaneous Every 81Fkvea23. Insulin Lispro (HumaLOG) Injectable: 6 unit(s) SubCutaneous 3 Times aDay Before Meals13. Insulin Lispro Mild Corrective Scale: unit(s) SubCutaneous 3 Times a DayBefore Meals14. Levothyroxine: 150 microgram(s) Oral Daily15. Pantoprazole: 40 mg Oral Daily16. Polyethylene Glycol: 17 gram(s) Oral Daily17. rOPINIRole: 6 mg Oral 18. Sodium Chloride 0.65% Nasal [place]: 2 spray(s) Each Nostril 2 Times aDay PRN Medications ---- 1. Dextrose 50% in Water Injectable: 25 gram(s) IntraVenous Push Every 07Balpugt8. Glucagon Injectable: 1 mg IntraMuscular Every 15 Minutes Currently Suspended Medications ---- 1. Chlorhexidine Gluconate 4% Topical: 1 application(s) Topical Once Recent Lab Results: Results: I have reviewed these laboratory results: Glucose_POCT Trending View Whoxrd90-Umz-2899 11:19:00 25-Mar-2018 07:47:00Glucose-POFR262 H 163 H Heparin assay, UFH 25-Mar-2018 [...] T2DM, Addisson's, GERD, prostate ca s/p prostatectomy zs1209, hypothyroidism, psoriasis, and most recently diagnosed with a PE andmultivessel CAD transferred to medicine at [facility] from [facility] on03/18 for CABG eval. 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 I have reviewed the Advanced Practice Providers encounter note,approve the Advanced Practice Providers documentation, and provide thefollowing additional information from my personal encounter.Comments/ Additional FindingsContinue anticoagulation for PE.No angina overnight.Await CABG on Friday. Electronic Signatures:Vito Patino (LITHOGRAPH PRESS OPERATOR TINWARE-CUSTOMER SERVICE LEADER) (Signed 25-Mar-2018 16:22)Authored: Service, Subjective Data, Objective Data, Assessment and Plan,Signature/Cosignature/A ttestationLeonel Arteaga) (Signed 26-Mar-2018 11:18)Authored: Signature/Cosignature/Attest ationCo-Signer: Subjective Data, Objective Data, Assessment and Plan,Signature/Cosignature/A ttestation Last Updated: 26-Mar-2018 11:18 by Leonel Arteaga) [facility] Daily Progress Note-Endocrin ologyon 03-25-2018 Protein mass conc Consult Type: subseq uent visit/care Service: Endocrinology Subjective Data:DON ELKINS is a 67 year old Male who is Hospital Day # 8. Objective Data: Objective Information:T MTKOWeQ6Gwrct32.56989105/799 7%Date/Time03/25 16: 16: 16: 16: 16:00Range(35.8C - 36.2C ) (68 - 78 ) (17 - 18 ) (128 - 166 )/ (79 - 86 ) (96%- 97% ) Pain with Activity reported at 03/25 8:00: 0Pain at Rest reported at 03/25 8:00: 0 Qkijlzz71/7 3:46: Weight in kg (Weight (kg)) 107.911 [...] reviewed these laboratory results: Glucose_POCT Trending View Dzstuq96-Nyv-5169 12:46:00 24-Mar-2018 11:46:00 24-Mar-2018 06:54:00 23-Mar-2018 20:50:00 23-Mar-2018 15:44:00 23-Mar-2018 11:37:00 07-Gjj-100075:37:00 22-Mar-2018 21:18:00Glucose-BGTC395 H 262 H 217 H 290 H 228 H 226 H 189H 275 H Basic Metabolic Panel 24-Mar-2018 03:30:00 ResultValueGlucose, Serum 358 HNA 134 LK 4.2CL 103Bicarbonate, Serum 21Anion Gap, Serum 14BUN 26 HCREAT 1.24GFR-Non 58 AGFR- 70Calcium, Serum 9.1 Renal Function Panel Trending View Ndzuwt10-Fos-9136 20:34:00 22-Mar-2018 19:24:00Glucose, Ujyms503 H 226 XMT047 138K4.2 4.0OY631 102Bicarbonate, Serum24 25Anion Gap, Serum14 66SXB45 24 HCREAT1.23 1.53 HGFR-Non Zhcbbben81 A 46 AGFR- Egbmyorr75 56 ACalcium, Serum9.2 9.0Phosphorus, Serum3.9 4.0ALB3.7 3.7 Assessment and Plan:Assessment: Mr. Elkins is a 67 yo WM with no known history of CAD, who has a past medicalhistory of HTN, HLD, T2DM, Colbert's disease, hypothyroidism, COPD, AKASH onCPAP, prostate ca s/p prostatectomy in 2011, and psoriasis [facility] from [facility] on 03/18 forWALTER marshall.Endocrine consulted fr evaluation of Colbert disease and treatment periop Patient was on supra-therapeutic dose of HCT 20-0-20 , fludrocortisone 0.1 ,mgdailyPatient has uncontrolled HTN and uncontrolled BSMost likely tomorrow (03/23) IVC filter placement Recommendations:1. Colbert's Disease-- Fludrocortisone 0.05 mg 4 times weekly ( and friday)-- Continue Hydrocortisone to 10-5-2.5 mg at 2xe-96uv-6hp DAILY as of tomorrow -On the day [...] protocol--Diabetic diet--will follow Please page with questions [phone] Patient seen and examined, plan discussed with Dr Quevedo Signature/Cosignature/Attest ation:Attending AttestationI saw and evaluated the patient. I [...] patient (as noted in the above attestation) [id number] Electronic Signatures:Starr Quevedo) (Signed 28-Mar-2018 09:06)Authored: Signature/Cosignature/Attest ationCo-Signer: Service, Subjective Data, Objective Data, Assessment and Plan,Signature/Cosignature/A ttestationHasmukh Stephenson (Resident)) (Signed 25-Mar-2018 19:27)Authored: Service, Subjective Data, Objective Data, Assessment and Plan,Signature/Cosignature/A ttestation Last Updated: 28-Mar-2018 09:06 by Starr Quevedo) Normal [facility] GLUCOSE-POCTon 03-25-2018 Glucose mass conc 181 mg/dL High 74 - 99 [facility] Comment on above: Performed By: #### G BECKY ####[id number] [place] [address] Glucose mass conc 306 mg/dL High 74 - 99 [facility] Comment on above: Performed By: #### G BECKY ####[id number] [place] [address] Glucose mass conc 291 mg/dL High 74 - 99 [facility] Comment on above: Performed By: #### G BECKY ####[id number] [place] [address] Glucose mass conc 163 mg/dL High 74 - 99 [facility] Comment on above: Performed By: #### G BECKY ####[id number] [place] [address] HEPARIN ASSAY,UFHon 03-25-20 18 HEPARIN ASSAY,UFH 0.4 IU/mL Normal [facility] Comment on above: Result Comment: The therapeutic reference range for UFH may be either 0.3-0.6 IU/mL or 0.3-0.7 IU/mL based on the clinical setting for anticoagulant therapy and the associated nomogram used. For heparin dosing guidelines based on clinical scenario and Heparin Assay results, please refer to local Pharmacy and the [facility] Guidelines for Anticoagulation therapy available on the [facility] intranet at:[email or web address]_ [email or web address]_for_[email or web address].aspx Performed By: #### G BECKY ####[id number] [place] [address] RENAL FUNCTION PANELon 03-25 Albumin mass conc 3.8 g/dL Normal 3.4 - 5.0 [facility] Comment on above: Performed By: #### G BECKY ####[id number] [place] [address] Anion gap 3 molar conc 12 mmol/L Normal 10 - 20 [facility] Comment on above: Performed By: #### G BECKY ####[id number] [place] [address] Calcium mass conc 9.3 mg/dL Normal 8.6 - 10.6 [facility] Comment on above: Performed By: #### G BECKY ####[id number] [place] [address] Chloride molar conc 103 mmol/L Normal 98 - 107 [facility] Comment on above: Performed By: #### G BECKY ####[id number] [place] [address] Creatinine mass conc 1.52 mg/dL High 0.50 - 1.30 [facility] Comment on above: Performed By: #### G BECKY ####[id number] [place] [address] GFR- AM. 56 mL/min/1.73m2 Abnormal >60 [facility] Comment on above: Result Comment: CALC ULATIONS OF ESTIMATED GFR ARE PERFORMED USING THE MDRD STUDY EQUATION FOR THE IDMS-TRACEABLE CREATININE METHODS. CLIN CHEM 2007;53:766-72 Performed By: #### G BECKY ####[id number] [place] [address] GFR-NON AM. 46 mL/min/1.73m2 Abnormal >60 [facility] Comment on above: Performed By: #### G BECKY ####[id number] [place] [address] Glucose mass conc 246 mg/dL High 74 - 99 [facility] Comment on above: Performed By: #### G BECKY ####[id number] [place] [address] HCO3 molar conc (Bld) 27 mmol/L Normal 21 - 32 [facility] Comment on above: Performed By: #### G BECKY ####[id number] [place] [address] Phosphate mass conc 4.4 mg/dL Normal 2.5 - 4.9 [facility] Comment on above: Result Comment: The performance characteristics of phosphorus testing in heparinized plasma have been validated by the individual laboratory site where testing is performed. Testing on heparinized plasma is not approved by the FDA; however, such approval is not necessary. Performed By: #### G BECKY ####[id number] [place] [address] Potassium molar conc 4.4 mmol/L Normal 3.5 - 5.3 [facility] Comment on above: Performed By: #### G BECKY ####[id number] [place] [address] Sodium molar conc 138 mmol/L Normal 136 - 145 [facility] Comment on above: Performed By: #### G BECKY ####[id number] [place] [address] Urea nitrogen mass conc 26 mg/dL High 6 - 23 [facility] Comment on above: Performed By: #### G BECKY ####[id number] [place] [address] BASIC METABOLIC PANELon 11-0 Anion gap 3 molar conc 14 mmol/L Normal 10 - 20 [facility] Comment on above: Performed By: #### B MP ####[id number] [place] [address] Calcium mass conc 9.1 mg/dL Normal 8.6 - 10.6 [facility] Comment on above: Performed By: #### B MP ####[id number] [place] [address] Chloride molar conc 103 mmol/L Normal 98 - 107 [facility] Comment on above: Performed By: #### B MP ####[id number] [place] [address] Creatinine mass conc 1.24 mg/dL Normal 0.50 - 1.30 [facility] Comment on above: Performed By: #### B MP ####[id number] [place] [address] GFR- AM. 70 mL/min/1.73m2 Normal >60 [facility] Comment on above: Result Comment: CALC ULATIONS OF ESTIMATED GFR ARE PERFORMED USING THE MDRD STUDY EQUATION FOR THE IDMS-TRACEABLE CREATININE METHODS. CLIN CHEM 2007;53:766-72 Performed By: #### B MP ####[id number] [place] [address] GFR-NON AM. 58 mL/min/1.73m2 Abnormal >60 [facility] Comment on above: Performed By: #### B MP ####[id number] [place] [address] Glucose mass conc 358 mg/dL High 74 - 99 [facility] Comment on above: Performed By: #### B MP ####[id number] [place] [address] HCO3 molar conc (Bld) 21 mmol/L Normal 21 - 32 [facility] Comment on above: Performed By: #### B MP ####[id number] [place] [address] Potassium molar conc 4.2 mmol/L Normal 3.5 - 5.3 [facility] Comment on above: Performed By: #### B MP ####[id number] [place] [address] Sodium molar conc 134 mmol/L Low 136 - 145 [facility] Comment on above: Performed By: #### B MP ####[id number] [place] [address] Urea nitrogen mass conc 26 mg/dL High 6 - 23 [facility] Comment on above: Performed By: #### B MP ####[id number] [place] [address] CBCon 03-24-2018 Erythrocyte distribution width Auto Ratio (RBC) 12.9 % Normal 11.5 - 14.5 [facility] Comment on above: Performed By: #### C BC ####[id number] [place] [address] Hematocrit Auto Volume Fraction (Bld) 40.0 % Low 41.0 - 52.0 [facility] Comment on above: Performed By: #### C BC ####[id number] [place] [address] Hemoglobin mass conc (Bld) 13.4 g/dL Low 13.5 - 17.5 [facility] Comment on above: Performed By: #### C BC ####[id number] [place] [address] MCHC Auto mass conc (RBC) 33.5 g/dL Normal 32.0 - 36.0 [facility] Comment on above: Performed By: #### C BC ####[id number] [place] [address] MCV Auto Entitic volume (RBC) 92 fL Normal 80 - 100 [facility] Comment on above: Performed By: #### C BC ####[id number] [place] [address] Nucleated RBC/100 WBC Ratio (Bld) 0.0 /100 WBC Normal 0.0-0.0 [facility] Comment on above: Performed By: #### C BC ####[id number] [place] [address] Platelets Auto #/vol (Bld) 216 10*3/uL Normal 150 - 450 [facility] Comment on above: Performed By: #### C BC ####[id number] [place] [address] RBC Auto #/vol (Bld) 4.33 x10E12/L Low 4.50 - 5.90 [facility] Comment on above: Performed By: #### C BC ####[id number] [place] [address] WBC Auto #/vol (Bld) 7.6 10*3/uL Normal 4.4 - 11.3 [facility] Comment on above: Performed By: #### C BC ####[id number] [place] [address] Erythrocyte distribution width Auto Ratio (RBC) 12.9 % Normal 11.5 - 14.5 [facility] Comment on above: Performed By: #### C BC ####[id number] [place] [address] Hematocrit Auto Volume Fraction (Bld) 39.8 % Low 41.0 - 52.0 [facility] Comment on above: Performed By: #### C BC ####[id number] [place] [address] Hemoglobin mass conc (Bld) 13.6 g/dL Normal 13.5 - 17.5 [facility] Comment on above: Performed By: #### C BC ####[id number] [place] [address] MCHC Auto mass conc (RBC) 34.2 g/dL Normal 32.0 - 36.0 [facility] Comment on above: Performed By: #### C BC ####[id number] [place] [address] MCV Auto Entitic volume (RBC) 92 fL Normal 80 - 100 [facility] Comment on above: Performed By: #### C BC ####[id number] [place] [address] Nucleated RBC/100 WBC Ratio (Bld) 0.0 /100 WBC Normal 0.0-0.0 [facility] Comment on above: Performed By: #### C BC ####[id number] [place] [address] Platelets Auto #/vol (Bld) 216 10*3/uL Normal 150 - 450 [facility] Comment on above: Performed By: #### C BC ####[id number] [place] [address] RBC Auto #/vol (Bld) 4.34 x10E12/L Low 4.50 - 5.90 [facility] Comment on above: Performed By: #### C BC ####[id number] [place] [address] WBC Auto #/vol (Bld) 7.5 10*3/uL Normal 4.4 - 11.3 [facility] Comment on above: Performed By: #### C BC ####[id number] [place] [address] Daily Progress Note-Cardiolo kathy 03-24-2018 Protein mass conc Service: Cardiology Subjective Data:DON ELKINS is a 67 year old Male who is Hospital Day # 7. Additional Information:s/p IVC Filter placement yesterday, SBP improved to 130s-150s/60-80s, BSremain elevated 200s - c/w Heparin gtt- Increase Lantus to 25 units- Add Lispro 6 units before meals- Plan for CABG next week Objective Data: Objective Information:T [id number]/849 6%Date/Time03/24 7: 7: 7: 8: 7:44Range(35.6C - 37C ) (67 - 85 ) (18 - 22 ) (122 - 158 )/ (68 - 84 ) (93% -96% )Highest temp of 37 C was recorded at 03/23 11:00 Pain with Activity reported at 03/24 3:34: 0Pain at Rest reported at 03/24 3:34: 0 Dpkewnr13/6 3:33: Weight in kg (Weight (kg)) 108.311/ 3:33: Weight in lbs ((lbs)) 238.8 Physical Exam: Constitutional: Resting in bed, NADHead/Neck: No JVDRespiratory/Thorax: CTABCardiovascular: RRR, S1 Q0Nlkizbsgbtokxvgb: soft, NT/NDExtremities: No edemaNeurological: alert and oriented m7Rkdzujtjknabq: Appropriate mood and behaviorSkin: psoriasis plaque over elbows and knees; otherwise warm and dry; rightgroin drsg intact Medication: Medications: Continuous Medications ---- 1. Heparin 25,000 units/ D5W 250 mL Infusion: 1000 units/hr IntraVenous Scheduled Medications ---- 1. Aspirin Chewable: 81 mg Oral Daily2. Atorvastatin: 40 mg Oral Daily3. Carvedilol: 12.5 mg Oral 2 Times a Day4. Citalopram: 20 mg Oral Daily5. Docusate 50 mg - Senna 8.6 m tablet(s) Oral 2 Times a Day6. Fludrocortisone: 0.05 mg Oral 7. Heparin (Repeat Bolus) Injectable: 4000 unit(s) IntraVenous Push Every 3Cknpy6. Hydrocortisone: 10 mg Oral 9. Hydrocortisone: 5 mg Oral 10. Hydrocortisone: 2.5 mg Oral 11. Insulin Glargine (Lantus) Injectable: 20 unit(s) SubCutaneous Every 09Dqpdo56. Insulin Lispro Mild Corrective Scale: unit(s) SubCutaneous 3 Times a DayBefore Meals13. Levothyroxine: 150 microgram(s) Oral Daily14. Pantoprazole: 40 mg Oral Daily15. Polyethylene Glycol: 17 gram(s) Oral Daily16. rOPINIRole: 6 mg Oral 17. Sodium Chloride 0.65% Nasal Ohlman: 2 spray(s) Each Nostril 2 Times aDay PRN Medications ---- 1. Dextrose 50% in Water Injectable: 25 gram(s) IntraVenous Push Every 66Rshpckv9. Glucagon Injectable: 1 mg IntraMuscular Every 15 Minutes Currently Suspended Medications ---- 1. Chlorhexidine Gluconate 4% Topical: 1 application(s) Topical Once Recent Lab Results: Results: I have reviewed these laboratory results: Glucose_POCT Trending View Qtckwc58-Yba-4135 06:54:00 23-Mar-2018 20:50:00Glucose-XWFF848 H 290 H Complete Blood Count Trending View Dceidc11-Vmg-1379 03:30:00 23-Mar-2018 20:34:00White Blood Cell Count7.6 7.5Nucleated Erythrocyte Count0.0 0.0Red Blood Cell Count4.33 L 4.34 LHGB13.4 L 13.6HCT40.0 L 39.8 LMCV92 27KQNQ81.5 34.9NQA462 216RDW-CV12.9 12.9 Basic Metabolic Panel 24-Mar-2018 03:30:00 ResultValueGlucose, Serum 358 HNA 134 LK 4.2CL 103Bicarbonate, Serum 21Anion Gap, Serum 14BUN 26 HCREAT 1.24GFR-Non 58 AGFR- 70Calcium, Serum 9.1 Heparin assay, UFH Trending View Xymifp61-Ftc-0535 03:30:00 23-Mar-2018 23:27:00Heparin assay, UFH0.4 0.3 Renal [...] T2DM, Addisson's, GERD, prostate ca s/p prostatectomy [id number], hypothyroidism, psoriasis, and most recently diagnosed with a PE andmultivessel CAD transferred to medicine at [facility] from [facility] on03/18 for CABG eval. 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 I have reviewed the Advanced Practice Providers encounter note,approve the Advanced Practice Providers documentation, and provide thefollowing additional information from my personal encounter.Comments/ Additional FindingsS/p IVC filter yesterday.Continue heparin gtt for PE. Await CABG on Friday.Appreciate Pulmonary input. Electronic Signatures:Vito Patino (LITHOGRAPH PRESS OPERATOR [employer]-CUSTOMER SERVICE LEADER) (Signed 24-Mar-2018 09:27)Authored: Service, Subjective Data, Objective Data, Assessment and Plan,Signature/Cosignature/A ttestationLeonel Arteaga) (Signed 26-Mar-2018 11:20)Authored: Signature/Cosignature/Attest ationCo-Signer: Service, Subjective Data, Objective Data, Assessment and Plan,Signature/Cosignature/A ttestation Last Updated: 26-Mar-2018 11:20 by Leonel Arteaga) Normal [facility] Daily Progress Note-Endocrin ologyon 03-24-2018 Protein mass conc Consult Type: subseq uent visit/care Service: Endocrinology Subjective Data:DON ELKINS is a 67 year old Male who is Hospital Day # 7. BS above range. Objective Data: Objective Information:T [id number]/839 7%Date/Time03/24 12: 12: 12: 12: 12:41Range(35.6C - 36.8C [...] dry, acanthosis nigricans Medication: Medications: Continuous Medications ---- 1. Sodium Chloride 0.9% .: 250 mL IntraVenous Scheduled Medications ---- 1. Aspirin Chewable: 81 mg Oral Daily2. Atorvastatin: 40 mg Oral Daily3. Carvedilol: 12.5 mg Oral 2 Times a Day4. Citalopram: 20 mg Oral Daily5. Docusate 50 mg - Senna 8.6 m tablet(s) Oral 2 Times a Day6. Fludrocortisone: 0.05 mg Oral 7. Heparin (Repeat Bolus) Injectable: 4000 unit(s) IntraVenous Push Every 2Imlyz3. Hydrocortisone: 10 mg Oral 9. Hydrocortisone: 5 mg Oral 10. Hydrocortisone: 2.5 mg Oral 11. Insulin Glargine (Lantus) Injectable: 25 unit(s) SubCutaneous Every 13Lgtpk38. Insulin Lispro (HumaLOG) Injectable: 6 unit(s) SubCutaneous 3 Times aDay Before Meals13. Insulin Lispro Mild Corrective Scale: unit(s) SubCutaneous 3 Times a DayBefore Meals14. Levothyroxine: 150 microgram(s) Oral Daily15. Pantoprazole: 40 mg Oral Daily16. Polyethylene Glycol: 17 gram(s) Oral Daily17. rOPINIRole: 6 mg Oral 18. Sodium Chloride 0.65% Nasal [place]: 2 spray(s) Each Nostril 2 Times aDay PRN Medications ---- 1. Dextrose 50% in Water Injectable: 25 gram(s) IntraVenous Push Every 26Rejfvbn2. Glucagon Injectable: 1 mg IntraMuscular Every 15 Minutes Currently Suspended Medications ---- 1. Chlorhexidine Gluconate 4% Topical: 1 application(s) Topical Once Recent Lab Results: Results: I have reviewed these laboratory results: Glucose_POCT Trending View Echtla34-Don-5538 12:46:00 24-Mar-2018 11:46:00 24-Mar-2018 06:54:00 23-Mar-2018 20:50:00 23-Mar-2018 15:44:00 23-Mar-2018 11:37:00 83-Qry-997787:37:00 22-Mar-2018 21:18:00Glucose-VTOP893 H 262 H 217 H 290 H 228 H 226 H 189H 275 H Basic Metabolic Panel 24-Mar-2018 03:30:00 ResultValueGlucose, Serum 358 HNA 134 LK 4.2CL 103Bicarbonate, Serum 21Anion Gap, Serum 14BUN 26 HCREAT 1.24GFR-Non 58 AGFR- 70Calcium, Serum 9.1 Renal Function Panel Trending View Twvyhe98-Uwf-0838 20:34:00 22-Mar-2018 19:24:00Glucose, Fpwqd625 H 226 EZH392 138K4.2 4.0UG397 102Bicarbonate, Serum24 25Anion Gap, Serum14 76RKB43 24 HCREAT1.23 1.53 HGFR-Non Uvnonvgc48 A 46 AGFR- Uzxwmoah04 56 ACalcium, Serum9.2 9.0Phosphorus, Serum3.9 4.0ALB3.7 3.7 Assessment and Plan:Assessment: Mr. 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 Brigida's Disease-- Fludrocortisone 0.05 mg 4 times weekly ( and friday)-- Continue Hydrocortisone to 10-5-2.5 mg at 1sc-95fc-9ag DAILY as of tomorrow -On the day [...] protocol--Diabetic diet--will follow Please page with questions [phone] Patient seen and examined, plan discussed with Dr Quevedo Signature/Cosignature/Attest ation:Attending AttestationI saw and evaluated the patient. I [...] patient (as noted in the above attestation) [id number] Electronic Signatures:Starr Quevedo) (Signed 28-Mar-2018 09:05)Authored: Signature/Cosignature/Attest ationCo-Signer: Service, Subjective Data, Objective Data, Assessment and PlanHasmukh Stephenson (Resident)) (Signed 24-Mar-2018 13:56)Authored: Service, Subjective Data, Objective Data, Assessment and Plan Last Updated: 28-Mar-2018 09:05 by Starr Quevedo) Normal [facility] GLUCOSE-POCTon 03-24-2018 Glucose mass conc 240 mg/dL High 74 - 99 [facility] Comment on above: Performed By: #### G BECKY ####[id number] [place] [address] Glucose mass conc 312 mg/dL High 74 - 99 [facility] Comment on above: Performed By: #### G BECKY ####[id number] [place] [address] Glucose mass conc 242 mg/dL High 74 - 99 [facility] Comment on above: Performed By: #### G BECKY ####[id number] [place] [address] Glucose mass conc 262 mg/dL High 74 - 99 [facility] Comment on above: Performed By: #### G BECKY ####[id number] [place] [address] Glucose mass conc 217 mg/dL High 74 - 99 [facility] Comment on above: Performed By: #### G BECKY ####[id number] [place] [address] HEPARIN ASSAY,UFHon 03-24-20 18 HEPARIN ASSAY,UFH 0.4 IU/mL Normal [facility] Comment on above: Result Comment: The therapeutic reference range for UFH may be either 0.3-0.6 IU/mL or 0.3-0.7 IU/mL based on the clinical setting for anticoagulant therapy and the associated nomogram used. For heparin dosing guidelines based on clinical scenario and Heparin Assay results, please refer to local Pharmacy and the [facility] Guidelines for Anticoagulation therapy available on the [facility] intranet at:[email or web address]/[email or web address]_ ospitals_Guidelines_for_Anticoagu.aspx Performed By: #### H AUF ####[id number] [place] [address] HEPARIN ASSAY,UFH 0.3 IU/mL Normal [facility] Comment on above: Result Comment: The therapeutic reference range for UFH may be either 0.3-0.6 IU/mL or 0.3-0.7 IU/mL based on the clinical setting for anticoagulant therapy and the associated nomogram used. For heparin dosing guidelines based on clinical scenario and Heparin Assay results, please refer to local Pharmacy and the [facility] Guidelines for Anticoagulation therapy available on the [facility] intranet at:[email or web address]/Pages/[place]_ ospitals_Guidelines_for_Anticoagu.aspx Performed By: #### H AUF ####[id number] [place] [address] RENAL FUNCTION PANELon 03-24 Albumin mass conc 3.7 g/dL Normal 3.4 - 5.0 [facility] Comment on above: Performed By: #### R ENAL ####[id number] [place] [address] Anion gap 3 molar conc 14 mmol/L Normal 10 - 20 [facility] Comment on above: Performed By: #### R ENAL ####[id number] [place] [address] Calcium mass conc 9.2 mg/dL Normal 8.6 - 10.6 [facility] Comment on above: Performed By: #### R ENAL ####[id number] [place] [address] Chloride molar conc 102 mmol/L Normal 98 - 107 [facility] Comment on above: Performed By: #### R ENAL ####[id number] [place] [address] Creatinine mass conc 1.23 mg/dL Normal 0.50 - 1.30 [facility] Comment on above: Performed By: #### R ENAL ####[id number] [place] [address] GFR- AM. 71 mL/min/1.73m2 Normal >60 [facility] Comment on above: Result Comment: CALC ULATIONS OF ESTIMATED GFR ARE PERFORMED USING THE MDRD STUDY EQUATION FOR THE IDMS-TRACEABLE CREATININE METHODS. CLIN CHEM 2007;53:766-72 Performed By: #### R ENAL ####[id number] [place] [address] GFR-NON AM. 59 mL/min/1.73m2 Abnormal >60 [facility] Comment on above: Performed By: #### R ENAL ####[id number] [place] [address] Glucose mass conc 271 mg/dL High 74 - 99 [facility] Comment on above: Performed By: #### R ENAL ####[id number] [place] [address] HCO3 molar conc (Bld) 24 mmol/L Normal 21 - 32 [facility] Comment on above: Performed By: #### R ENAL ####[id number] [place] [address] Phosphate mass conc 3.9 mg/dL Normal 2.5 - 4.9 [facility] Comment on above: Result Comment: The performance characteristics of phosphorus testing in heparinized plasma have been validated by the individual laboratory site where testing is performed. Testing on heparinized plasma is not approved by the FDA; however, such approval is not necessary. Performed By: #### R ENAL ####[id number] [place] [address] Potassium molar conc 4.2 mmol/L Normal 3.5 - 5.3 [facility] Comment on above: Performed By: #### R ENAL ####[id number] [place] [address] Sodium molar conc 136 mmol/L Normal 136 - 145 [facility] Comment on above: Performed By: #### R ENAL ####[id number] [place] [address] Urea nitrogen mass conc 21 mg/dL Normal 6 - 23 [facility] Comment on above: Performed By: #### R ENAL ####[id number] [id number] ABO/RH GROUP TESTon 03-23-20 18 ABO TYPE A Normal [facility] Comment on above: Performed By: #### T SH2 ####[id number] [id number] RH TYPE Positive Normal [facility] Comment on above: Performed By: #### T SH2 ####[id number] [id number] BENZODIAZEPINES CONF,URINEon 03-23-2018 7-AMINOCLONAZEPAM <5 Normal [facility] Comment on above: Performed By: #### B ENCN ####[facility] [address] [place] [address] ALPHA-HYDROXYALPRAZ OLAM <5 Normal [facility] Comment on above: Performed By: #### B ENCN ####[address] [place] [address] ALPHA-HYRDOXYMIDAZO DAMON 36 ng/mL Normal [facility] Comment on above: Result Comment: Mida zolam metabolite: consistent with use of a drug containingmidazolam, such as Versed.Performed by [facility],[address] [place] [address],[place] [address] [address]ck.[employer], Esteban Carbajal MD - Lab. Director Performed By: #### B ENCN ####[address] [place] [address] ALPRAZOLAM <5 Normal [facility] Comment on above: Performed By: #### B ENCN ####[facility] [address] [facility] [place] [address] CHLORDIAZEPOXIDE <20 Normal [facility] Comment on above: Performed By: #### B ENCN ####[facility] [address] [place] [address] CLONAZEPAM <5 Normal [facility] Comment on above: Performed By: #### B ENCN ####[facility] [place] [address] DIAZEPAM <20 Normal [facility] Comment on above: Result Comment: INTE RPRETIVE [...] the laboratory.Test developed and characteristics determined by [facility]. See Compliance Statement B: [employer]/CS Performed By: #### B ENCN ####[facility] [address] [place] [address] LORAZEPAM <20 Normal [facility] Comment on above: Performed By: #### B ENCN ####[facility] [address] [place] [address] MIDAZOLAM <20 Normal [facility] Comment on above: Performed By: #### B ENCN ####[facility] [address] [place] [address] NORDIAZEPAM <20 Normal [facility] Comment on above: Performed By: #### B ENCN ####[facility] [address] [place] [address] OXAZEPAM <20 Normal [facility] Comment on above: Performed By: #### B ENCN ####[facility] [address] [place] [address] TEMAZEPAM <20 Normal [facility] Comment on above: Performed By: #### B ENCN ####[facility] [address] [place] [address] Daily Progress Note-Yann chavez 03-23-2018 Protein mass conc Service: Cardiology Subjective Data:DON ELKINS is a 67 year old Male who is Hospital Day # 6. Additional Information:s/p IVC Filter placement today, SBP remains elevated 150-160s, BS remainelevated 2-300s - restart Heparin gtt this evening- Plan for CABG next week Objective Data: Objective Information:T QZNUVeS9Aowol285013791/7593% Date/Time03/23 11:00Range(35.8C - 37C ) (69 - 78 ) (17 - 20 ) (121 - 168 )/ (73 - 91 ) (93% -97% )Highest temp of 37 C was recorded at 03/23 11:00 Pain with Activity reported at 03/23 11:00: 0Pain at Rest reported at 03/23 11:00: 0 Pitziez18/5 3:51: Weight in kg (Weight (kg)) 108.8105/23 3:51: Weight in lbs ((lbs)) 239.8 Physical Exam: Constitutional: Resting in bed, NADHead/Neck: No JVDRespiratory/Thorax: CTABCardiovascular: RRR, S1 F8Isfnpqzwrhebsdwt: soft, NT/NDExtremities: No edemaNeurological: alert and oriented f4Pljslclrsebgc: Appropriate mood and behaviorSkin: psoriasis plaque over elbows and knees; otherwise warm and dry; rightgroin drsg intact Medication: Medications: Continuous Medications ----No continuous medications are active Scheduled Medications ---- 1. Aspirin Chewable: 81 mg Oral Daily2. Atorvastatin: 40 mg Oral Daily3. Carvedilol: 12.5 mg Oral 2 Times a Day4. Citalopram: 20 mg Oral Daily5. Docusate 50 mg - Senna 8.6 m tablet(s) Oral 2 Times a Day6. Fludrocortisone: 0.05 mg Oral 7. Heparin (Repeat Bolus) Injectable: 4000 unit(s) IntraVenous Push Every 7Ywdvz9. Hydrocortisone: 5 mg Oral 9. Insulin Lispro Mild Corrective Scale: unit(s) SubCutaneous 3 Times a DayBefore Meals10. Levothyroxine: 150 microgram(s) Oral Daily11. Mupirocin 2%: 0.5 application(s) Each Nostril 2 Times a Day12. Pantoprazole: 40 mg Oral Daily13. Polyethylene Glycol: 17 gram(s) Oral Daily14. rOPINIRole: 2 mg Oral 3 Times a Day15. Sodium Chloride 0.65% Nasal Ohlman: 2 spray(s) Each Nostril 2 Times aDay PRN Medications ---- 1. Dextrose 50% in Water Injectable: 25 gram(s) IntraVenous Push Every 86Tstosxf5. Glucagon Injectable: 1 mg IntraMuscular Every 15 Minutes Currently Suspended Medications ---- 1. Chlorhexidine Gluconate 4% Topical: 1 application(s) Topical Once2. Heparin 25,000 units/ D5W 250 mL Infusion: 1000 units/hr IntraVenous 3. Hydrocortisone: 10 mg Oral 4. Hydrocortisone: 5 mg Oral 5. Hydrocortisone: 2.5 mg Oral Recent Lab Results: Results: I have reviewed these laboratory results: Glucose_POCT Trending View [id number]-Isx-[id number] 11:37:00 23-Mar-2018 07:37:00 22-Mar-2018 21:18:00Glucose-BMYG765 H 189 H 275 H Heparin assay, UFH Trending View [id number]-Abd-5776 02:02:00 22-Mar-2018 19:24:00Heparin assay, UFH0.4 0.2 Complete [...] T2DM, Addisson's, GERD, prostate ca s/p prostatectomy [id number], hypothyroidism, psoriasis, and most recently diagnosed with a PE andmultivessel CAD transferred to medicine at [facility] from [facility] on03/18 for CABG eval. 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 I have reviewed the Advanced Practice Providers encounter note,approve the Advanced Practice Providers documentation, and provide thefollowing additional information from my personal encounter.Comments/ Additional FindingsPlan on IVC filter today. Appreciate help from Dr. Stapleton and Dr. Ramirez.Restart anticoagulation post procedure. Electronic Signatures:Vito Patino (LITHOGRAPH PRESS OPERATOR TINWARE-CUSTOMER SERVICE LEADER) (Signed 23-Mar-2018 15:52)Authored: Service, Subjective Data, Objective Data, Assessment and Plan,Signature/Cosignature/A ttestationLeonel Arteaga) (Signed 26-Mar-2018 11:14)Authored: Signature/Cosignature/Attest ationCo-Signer: Service, Subjective Data, Objective Data, Assessment and Plan,Signature/Cosignature/A ttestation Last Updated: 26-Mar-2018 11:14 by Leonel Arteaga) Normal [facility] Daily Progress Note-Endocrin ologyon 03-23-2018 Protein mass conc Service: Endocrinolo gy Subjective Data:DON ELKINS is a 67 year old Male who is Hospital Day # 6. Post IVF procedure today received HCt 30 mg once in ama d 10 mg IVat noon whilein the OR, HDS. 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 Brigida's Disease-- Fludrocortisone to 0.05 mg 4 times weekly ( and friday)-- Give HCt 5mg today at 5 pm then resume as below tomorrow-- Continue Hydrocortisone to 10-5-2.5 mg at 0hr-75kg-4mb DAILY as of tomorrow -On the day [...] protocol--Diabetic diet--will follow Please page with questions [phone] Patient seen and examined, plan discussed with Dr Quevedo Signature/Cosignature/Attest ation:Attending AttestationI saw and evaluated the patient. I [...] patient (as noted in the above attestation) [id number] Electronic Signatures:Starr Quevedo) (Signed 28-Mar-2018 09:04)Authored: Signature/Cosignature/Attest ationCo-Signer: Service, Subjective Data, Objective Data, Assessment and Plan,Signature/Cosignature/A ttestationHasmukh Stephenson (Resident)) (Signed 23-Mar-2018 15:54)Authored: Service, Subjective Data, Objective Data, Assessment and Plan,Signature/Cosignature/A ttestation Last Updated: 28-Mar-2018 09:04 by Starr Quevedo) Normal [facility] Daily Progress Note-Pulmonol ogyon 03-23-2018 Daily Progress [...] on ambient air. Objective Data: Objective Information:T TTABTaG6Ibtoc198888976/7193% Date/Time03/23 11: 15:15105/23 11: 15:15105/23 11:00Range(35.8C - 37C ) (67 - 78 [...] medicine will sign offPlease page with questions [phone] Signature/Cosignature/Attest ation:Attending AttestationI saw and evaluated the patient. I [...] patient (as noted in the above attestation) [id number] Electronic Signatures:Angie Fuentes) (Signed 23-Mar-2018 18:13)Authored: Service, Signature/Cosignature/Attest ationCo-Signer: Service, Subjective Data, Objective Data, Assessment and Plan,Signature/Cosignature/A ttestationPrincess Garnica (Fellow)) (Signed 23-Mar-2018 16:18)Authored: Service, Subjective Data, Objective Data, Assessment and Plan,Signature/Cosignature/A ttestation Last Updated: 23-Mar-2018 18:13 by Angie Fuentes) Normal [facility] GLUCOSE-POCTon 03-23-2018 Glucose mass conc 290 mg/dL High 74 - 99 [facility] Comment on above: Performed By: #### G BECKY ####[id number] [place] [address] Glucose mass conc 228 mg/dL High 74 - 99 [facility] Comment on above: Performed By: #### T SH2 ####[id number] [place] [address] Glucose mass conc 226 mg/dL High 74 - 99 [facility] Comment on above: Performed By: #### T SH2 ####[id number] [id number] Glucose mass conc 189 mg/dL High 74 - 99 [facility] Comment on above: Performed By: #### T SH2 ####[id number] [id number] HEPARIN ASSAY,UFHon 03-23-20 18 HEPARIN ASSAY,UFH 0.4 IU/mL Normal [facility] Comment on above: Result Comment: The therapeutic reference range for UFH may be either 0.3-0.6 IU/mL or 0.3-0.7 IU/mL based on the clinical setting for anticoagulant therapy and the associated nomogram used. For heparin dosing guidelines based on clinical scenario and Heparin Assay results, please refer to local Pharmacy and the [facility] Guidelines for Anticoagulation therapy available on the [facility] intranet at:[email or web address] [email or web address] Performed By: #### T SH2 ####[id number] [facility] [facility] [place] [place] [address] OPERATIVE REPORTon OPERATIVE REPORT [facility] [place], [place] [address]Patient Name: DON ELKINSMRN: [id number]: 1950ncounter Number: [id number] of Service: 03/23/2018Patient Location: [facility] T502 [id number] Type: ISurgeon: Ana King Type: Operative ReportsPREOPERATIVE DIAGNOSIS: Venous thromboembolism.POSTOPERATIV E DIAGNOSIS: Venous thromboembolism.POSTOPERATIV E DIAGNOSIS: Inferior vena cava filter.SURGEON: MAREN KingISTANT(S): [...] wall puncture technique using ultrasound guidance. A 5-Maori sheath was placed. A wire was placed [...] MD ESTTT: 03/24/2018 00:30 AM ESTDICTATION NUMBER: [id number] JOB NUMBER: [id number]:Leonel Arteaga MD, [id number] Cheng MD, PhDElectronically Signed by Dr. Severiano Stapleton 04/01/2018 03:04:35 PM Normal [facility] OPIATE CONFIRMATION,URINEon 03-23-2018 6-ACETYLMORPHINE <10 Normal [facility] Comment on above: Result Comment: INTE RPRETIVE [...] the laboratory.Test developed and characteristics determined by [facility] [employer]. See Compliance Statement B: [place] [employer]/ Performed By: #### O PIC2 ####LA[address] [place] [address] CODEINE <20 Normal [facility] Comment on above: Performed By: #### O PIC2 ####LAUP [address] [facility] [place] [address] HYDROCODONE <20 Normal [facility] Comment on above: Performed By: #### O PIC2 ####LAUP [address] [place] [address] HYDROMORPHONE <20 Normal [facility] Comment on above: Performed By: #### O PIC2 ####[facility] [address] [place] [address] MORPHINE <20 Normal [facility] Comment on above: Performed By: #### O PIC2 ####[facility] [address] [place] [address] NORHYDROCODONE <20 Normal [facility] Comment on above: Result Comment: Perf ormed by [facility] [employer],[address] [address], [facility] [place] [address] jbx.[employer], Esteban Carbajal MD - Lab. Director Performed By: #### O PIC2 ####[place] [address] [place] [address] NOROXYCODONE <20 Normal [facility] Comment on above: Performed By: #### O PIC2 ####[facility] [place] [address] NOROXYMORPHONE <20 Normal [facility] Comment on above: Performed By: #### O PIC2 ####LA[place] [address] [place] [address] OXYCODONE <20 Normal [facility] Comment on above: Performed By: #### O PIC2 ####LAUP [address] [facility] [place] [address] OXYMORPHONE <20 Normal [facility] Comment on above: Performed By: #### O PIC2 ####[facility] [place] [address] Preop Checkliston 03-23-2018 Preop Checklist Preop Checklist:Preo p Checklist: Procedure TypeIVC filter NPO [id number]-[id number] 00:00 ID Band Onyes Allergy Bandno known [...] 23-Mar-2018 06:11 by Matt Zapien (ANDREA) Normal [facility] RENAL FUNCTION PANELon 03-23 Albumin mass conc 3.7 g/dL Normal 3.4 - 5.0 [facility] Comment on above: Performed By: #### T SH2 ####[id number] [place] [address] Anion gap 3 molar conc 15 mmol/L Normal 10 - 20 [facility] Comment on above: Performed By: #### T SH2 ####[id number] [place] [address] Calcium mass conc 9.0 mg/dL Normal 8.6 - 10.6 [facility] Comment on above: Performed By: #### T SH2 ####[id number] [place] [address] Chloride molar conc 102 mmol/L Normal 98 - 107 [facility] Comment on above: Performed By: #### T SH2 ####[id number] [place] [address] Creatinine mass conc 1.53 mg/dL High 0.50 - 1.30 [facility] Comment on above: Performed By: #### T SH2 ####[id number] [place] [address] GFR- AM. 56 mL/min/1.73m2 Abnormal >60 [facility] Comment on above: Result Comment: CALC ULATIONS OF ESTIMATED GFR ARE PERFORMED USING THE MDRD STUDY EQUATION FOR THE IDMS-TRACEABLE CREATININE METHODS. CLIN CHEM 2007;53:766-72 Performed By: #### T SH2 ####[id number] [place] [address] GFR-NON AM. 46 mL/min/1.73m2 Abnormal >60 [facility] Comment on above: Performed By: #### T SH2 ####[id number] [place] [address] Glucose mass conc 226 mg/dL High 74 - 99 [facility] Comment on above: Performed By: #### T SH2 ####[id number] [place] [address] HCO3 molar conc (Bld) 25 mmol/L Normal 21 - 32 [facility] Comment on above: Performed By: #### T SH2 ####[id number] [place] [address] Phosphate mass conc 4.0 mg/dL Normal 2.5 - 4.9 [facility] Comment on above: Result Comment: The performance characteristics of phosphorus testing in heparinized plasma have been validated by the individual laboratory site where testing is performed. Testing on heparinized plasma is not approved by the FDA; however, such approval is not necessary. Performed By: #### T SH2 ####[id number] [place] [address] Potassium molar conc 4.2 mmol/L Normal 3.5 - 5.3 [facility] Comment on above: Performed By: #### T SH2 ####[id number] [place] [address] Sodium molar conc 138 mmol/L Normal 136 - 145 [facility] Comment on above: Performed By: #### T SH2 ####[id number] [place] [address] Urea nitrogen mass conc 24 mg/dL High 6 - 23 [facility] Comment on above: Performed By: #### T SH2 ####[id number] [place] [address] CBCon 03-22-2018 Erythrocyte distribution width Auto Ratio (RBC) 12.8 % Normal 11.5 - 14.5 [facility] Comment on above: Performed By: #### L IPID ####[id number] [place] [address] Hematocrit Auto Volume Fraction (Bld) 38.0 % Low 41.0 - 52.0 [facility] Comment on above: Performed By: #### L IPID ####[id number] [place] [address] Hemoglobin mass conc (Bld) 12.8 g/dL Low 13.5 - 17.5 [facility] Comment on above: Performed By: #### L IPID ####[id number] [place] [address] MCHC Auto mass conc (RBC) 33.7 g/dL Normal 32.0 - 36.0 [facility] Comment on above: Performed By: #### L IPID ####[id number] [place] [address] MCV Auto Entitic volume (RBC) 93 fL Normal 80 - 100 [facility] Comment on above: Performed By: #### L IPID ####[id number] [place] [address] Nucleated RBC/100 WBC Ratio (Bld) 0.0 /100 WBC Normal 0.0-0.0 [facility] Comment on above: Performed By: #### L IPID ####[id number] [place] [address] Platelets Auto #/vol (Bld) 214 10*3/uL Normal 150 - 450 [facility] Comment on above: Performed By: #### L IPID ####[id number] [place] [address] RBC Auto #/vol (Bld) 4.07 x10E12/L Low 4.50 - 5.90 [facility] Comment on above: Performed By: #### L IPID ####[id number] [place] [address] WBC Auto #/vol (Bld) 7.3 10*3/uL Normal 4.4 - 11.3 [facility] Comment on above: Performed By: #### L IPID ####[id number] [place] [address] Erythrocyte distribution width Auto Ratio (RBC) 12.9 % Normal 11.5 - 14.5 [facility] Comment on above: Performed By: #### R ENAL ####[id number] [place] [address] Hematocrit Auto Volume Fraction (Bld) 40.8 % Low 41.0 - 52.0 [facility] Comment on above: Performed By: #### R ENAL ####[id number] [place] [address] Hemoglobin mass conc (Bld) 13.5 g/dL Normal 13.5 - 17.5 [facility] Comment on above: Performed By: #### R ENAL ####[id number] [place] [address] MCHC Auto mass conc (RBC) 33.1 g/dL Normal 32.0 - 36.0 [facility] Comment on above: Performed By: #### R ENAL ####[id number] [place] [address] MCV Auto Entitic volume (RBC) 94 fL Normal 80 - 100 [facility] Comment on above: Performed By: #### R ENAL ####[id number] [place] [address] Nucleated RBC/100 WBC Ratio (Bld) 0.0 /100 WBC Normal 0.0-0.0 [facility] Comment on above: Performed By: #### R ENAL ####[id number] [place] [address] Platelets Auto #/vol (Bld) 241 10*3/uL Normal 150 - 450 [facility] Comment on above: Performed By: #### R ENAL ####[id number] [place] [address] RBC Auto #/vol (Bld) 4.35 x10E12/L Low 4.50 - 5.90 [facility] Comment on above: Performed By: #### R ENAL ####[id number] [place] [address] WBC Auto #/vol (Bld) 9.4 10*3/uL Normal 4.4 - 11.3 [facility] Comment on above: Performed By: #### R ENAL ####[id number] [place] [address] Daily Progress Note-Cardiolo augustinon 03-22-2018 Protein mass conc Service: Cardiology Subjective Data:DON ELKINS is a 67 year old Male who is Hospital Day # 5. Additional Information:Creatinine up to 1.66 etiology, BS 200s over past 24 hours - NPO after MN for IVC filter tomorrow- Hold Heparin starting at 0600- Glargine insulin 20 units x1 today- Adjust Hydrocortisone per Endo recs Objective Data: Objective Information:T MHWRAjW4Wbcdg85.03997108/889 5%Date/Time03/22 12: 12: 12: 12: 12:00Range(36C - 36.4C ) (73 - 83 ) (17 - 18 ) (120 - 188 )/ (57 - 99 ) (93% -99% ) Pain with Activity reported at 03/21 15:25: 0Pain at Rest reported at 03/21 15:25: 0 Ivillco36/4 3:13: Weight in kg (Weight (kg)) 108.6114 3:13: Weight in lbs ((lbs)) 239.4 Physical Exam: Constitutional: Resting in bed, NADHead/Neck: No JVDRespiratory/Thorax: CTABCardiovascular: RRR, S1 H5Poalwausomxwrfhr: soft, NT/NDExtremities: No edemaNeurological: alert and oriented k4Jycjmjpgxpiqk: Appropriate mood and behaviorSkin: psoriasis plaque over elbows and knees; otherwise warm and dry Medication: Medications: Continuous Medications ---- 1. Heparin 25,000 units/ D5W 250 mL Infusion: 1000 units/hr IntraVenous Scheduled Medications ---- 1. Aspirin Chewable: 81 mg Oral Daily2. Atorvastatin: 40 mg Oral Daily3. Carvedilol: 12.5 mg Oral 2 Times a Day4. Citalopram: 20 mg Oral Daily5. Docusate 50 mg - Senna 8.6 m tablet(s) Oral 2 Times a Day6. Fludrocortisone: 0.05 mg Oral 7. Heparin (Repeat Bolus) Injectable: 4000 unit(s) IntraVenous Push Every 2Eyjvn1. Hydrocortisone: 2.5 mg Oral 9. Hydrocortisone: 30 [...] Times a Day18. Sodium Chloride 0.65% Nasal Ohlman: 2 spray(s) Each Nostril 2 Times aDay PRN Medications ---- 1. Dextrose 50% in Water Injectable: 25 gram(s) IntraVenous Push Every 95Qbrcsau7. Glucagon Injectable: 1 mg IntraMuscular Every 15 Minutes Currently Suspended Medications ---- 1. Chlorhexidine Gluconate 0.12% Mucous Mem: 15 mL Topical Morning andEvening2. Hydrocortisone: 10 mg Oral 3. Hydrocortisone: 5 mg Oral Recent Lab Results: Results: I have reviewed these laboratory results: Glucose_POCT Trending View [id number] 11:44:00 22-Mar-2018 07:52:00 21-Mar-2018 21:58:00Glucose-OZSN416 H 183 H 220 H Complete Blood [...] A4C: 17.4cm2LA Area A2C: 14.2 cm2LA [place] A4C: 6.0 cmLA [place] A2C: 4.7 cmLA Volume Index: 15.2 ml/m2RA VOLUME BY A/L METHOD: Normal Ranges:RA Area A4C: 12.8 vo7H-JYOC MEASUREMENTS: Normal Ranges:Ao Root: 2.90 cm (2.0-3.7cm)LAs: [...] T2DM, Addisson's, GERD, prostate ca s/p prostatectomy [id number], hypothyroidism, psoriasis, and most recently diagnosed with a PE andmultivessel CAD transferred to medicine at [facility] from [facility] on03/18 for CABG eval. Multiple PEs- [...] Cath uploaded- Plan for CABG with Dr. 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 mg MWFSun- 03/20 Reduce hydrocortisone to 10mg/5mg/2.5mg GERD- Continue home PPI HTN- Holding LAUREN- 03/20 Increase Carvedilol to 12.5mg BID- 120/57 - 167/93 over past 24 hours DLD- Atorva 40mg- lipids 155/44/82/141 HypothyroidismTSH 2.51- Continue home levothyroxine TIFFANI- MICHELLE- Adm Creatinine 1.42- Today 1.66 [1.38, 1.36] GI ppx: on PPICode status: Full Electronic Signatures:Vito Patino (LITHOGRAPH PRESS OPERATOR TINWARE-CUSTOMER SERVICE LEADER) (Signed 22-Mar-2018 14:13)Authored: Service, Subjective Data, Objective Data, Assessment and Plan,Signature/Cosignature/A ttestationSPatience decker) (Signed 22-Mar-2018 15:25)Co-Signer: Service, Subjective Data, Objective Data, Assessment and Plan,Signature/Cosignature/A ttestation Last Updated: 22-Mar-2018 15:25 by Patience Sow) Normal [facility] Daily Progress Note-Endocrin ologyon 03-22-2018 Protein mass conc Consult Type: subseq uent visit/care Service: Endocrinology Subjective Data:DON ELKINS is a 67 year old Male who is Hospital Day # 5. No acute events.IVC filter placement tomorrow. Objective Data: Objective Information:T [id number]/889 5%Date/Time03/22 12: 12: 12: 12: 12:00Range(36C - 36.4C [...] dry, acanthosis nigricans Medication: Medications: Continuous Medications ---- 1. Heparin 25,000 units/ D5W 250 mL Infusion: 1000 units/hr IntraVenous Scheduled Medications ---- 1. Aspirin Chewable: 81 mg Oral Daily2. Atorvastatin: 40 mg Oral Daily3. Carvedilol: 12.5 mg Oral 2 Times a Day4. Citalopram: 20 mg Oral Daily5. Docusate 50 mg - Senna 8.6 m tablet(s) Oral 2 Times a Day6. Fludrocortisone: 0.05 mg Oral 7. Heparin (Repeat Bolus) Injectable: 4000 unit(s) IntraVenous Push Every 9Tdqvj3. Hydrocortisone: 10 mg Oral 9. Hydrocortisone: 5 [...] Times a Day18. Sodium Chloride 0.65% Nasal Ohlman: 2 spray(s) Each Nostril 2 Times aDay PRN Medications ---- 1. Dextrose 50% in Water Injectable: 25 gram(s) IntraVenous Push Every 30Uupfwll4. Glucagon Injectable: 1 mg IntraMuscular Every 15 Minutes Currently Suspended Medications ---- 1. Chlorhexidine Gluconate 0.12% Mucous Mem: 15 mL Topical Morning andEvening Recent Lab Results: Results: I have reviewed these laboratory results: Glucose_POCT Trending View [id number]-[id number] 11:44:00 22-Mar-2018 07:52:00 21-Mar-2018 21:58:00 21-Mar-2018 15:52:00 21-Mar-2018 12:06:00 21-Mar-2018 08:37:00Glucose-ZVRW752 H 183 H 220 H 269 H [...] in 2011, and [facility] from [facility] on 03/18 David marshall.Endocrine consulted fr evaluation of Colbert disease and treatment periop Patient was on supra-therapeutic dose of HCT 20-0-20 , fludrocortisone 0.1 ,mgdailyPatient has uncontrolled HTN and uncontrolled BSMost likely tomorrow (03/23) IVC filter placement Recommendations:1. Brigida's Disease-- Decrease Fludrocortisone to 0.05 mg 4 times weekly ( and friday)-- Continue Hydrocortisone to 10-5-2.5 mg at 7fm-94to-1dk DAILY-- On day of IVC filter placement, [...] diet -will follow Please page with questions [phone] Patient seen and examined, plan discussed with Dr Quevedo Signature/Cosignature/Attest ation:Attending AttestationI saw and evaluated the patient. I [...] patient (as noted in the above attestation) [id number] Electronic Signatures:Starr Quevedo) (Signed 23-Mar-2018 12:38)Authored: Signature/Cosignature/Attest ationCo-Signer: Service, Subjective Data, Objective Data, Assessment and Plan,Signature/Cosignature/A Job Granado (Resident)) (Signed 22-Mar-2018 12:13)Authored: Service, Subjective Data, Objective Data, Assessment and Plan,Signature/Cosignature/A ttestation Last Updated: 23-Mar-2018 12:38 by Starr Quevedo) Normal [facility] GLUCOSE-POCTon 03-22-2018 Glucose mass conc 275 mg/dL High 74 - 99 [facility] Comment on above: Performed By: #### L IPID ####[id number] [place] [address] Glucose mass conc 276 mg/dL High 74 - 99 [facility] Comment on above: Performed By: #### L IPID ####[id number] [place] [address] Glucose mass conc 308 mg/dL High 74 - 99 [facility] Comment on above: Performed By: #### L IPID ####[id number] [place] [address] Glucose mass conc 183 mg/dL High 74 - 99 [facility] Comment on above: Performed By: #### L IPID ####[id number] [place] [address] HEPARIN ASSAY,UFHon 03-22-20 18 HEPARIN ASSAY,UFH 0.2 IU/mL Normal [facility] Comment on above: Result Comment: The therapeutic reference range for UFH may be either 0.3-0.6 IU/mL or 0.3-0.7 IU/mL based on the clinical setting for anticoagulant therapy and the associated nomogram used. For heparin dosing guidelines based on clinical scenario and Heparin Assay results, please refer to local Pharmacy and the [facility] Guidelines for Anticoagulation therapy available on the [facility] intranet at:[email or web address]/Pharmacy/Pages/[place]_ ospitals_Guidelines_for_Anticoagu.aspx Performed By: #### L IPID ####[id number] [place] [address] PROSTATE SPECIFIC AGon 03-22 Prostate specific Ag mass conc ng/mL Normal 0.00 - 4.00 [facility] Comment on above: Result Comment: The FDA requires that the method used for PSAassay be reported to the physician. Valuesobtained with different assay methods must notbe used interchangeably. uses the ADVIANetcipiaaur PSA method, which is a sandwichimmunoassay using chemiluminescence forquantitation. The assay is approved formeasurement of prostate-specific antigen (PSA)in serum and may be used in conjunction witha digital rectal examination in men 50 yearsand older as an aid in detection of prostatecancer. Performed By: #### L IPID ####[id number] [id number] RENAL FUNCTION PANELon 03-22 Albumin mass conc 3.8 g/dL Normal 3.4 - 5.0 [facility] Comment on above: Performed By: #### R ENAL ####[id number] [id number] Anion gap 3 molar conc 18 mmol/L Normal 10 - 20 [facility] Comment on above: Performed By: #### R ENAL ####[id number] [place] [address] Calcium mass conc 9.2 mg/dL Normal 8.6 - 10.6 [facility] Comment on above: Performed By: #### R ENAL ####[id number] [id number] Chloride molar conc 102 mmol/L Normal 98 - 107 [facility] Comment on above: Performed By: #### R ENAL ####[id number] [place] [address] Creatinine mass conc 1.66 mg/dL High 0.50 - 1.30 [facility] Comment on above: Performed By: #### R ENAL ####[id number] [place] [address] GFR- AM. 50 mL/min/1.73m2 Abnormal >60 [facility] Comment on above: Result Comment: CALC ULATIONS OF ESTIMATED GFR ARE PERFORMED USING THE MDRD STUDY EQUATION FOR THE IDMS-TRACEABLE CREATININE METHODS. CLIN CHEM 2007;53:766-72 Performed By: #### R ENAL ####[id number] [place] [address] GFR-NON AM. 41 mL/min/1.73m2 Abnormal >60 [facility] Comment on above: Performed By: #### R ENAL ####[id number] [place] [address] Glucose mass conc 257 mg/dL High 74 - 99 [facility] Comment on above: Performed By: #### R ENAL ####[id number] [place] [address] HCO3 molar conc (Bld) 24 mmol/L Normal 21 - 32 [facility] Comment on above: Performed By: #### R ENAL ####[id number] [place] [address] Phosphate mass conc 4.0 mg/dL Normal 2.5 - 4.9 [facility] Comment on above: Result Comment: The performance characteristics of phosphorus testing in heparinized plasma have been validated by the individual laboratory site where testing is performed. Testing on heparinized plasma is not approved by the FDA; however, such approval is not necessary. Performed By: #### R ENAL ####[id number] [place] [address] Potassium molar conc 4.5 mmol/L Normal 3.5 - 5.3 [facility] Comment on above: Performed By: #### R ENAL ####[id number] [place] [address] Sodium molar conc 139 mmol/L Normal 136 - 145 [facility] Comment on above: Performed By: #### R ENAL ####[id number] [place] [address] Urea nitrogen mass conc 29 mg/dL High 6 - 23 [facility] Comment on above: Performed By: #### R ENAL ####[id number] [place] [address] TYPE + SCREENon 03-22-2018 ABO TYPE A Normal [facility] Comment on above: Performed By: #### L IPID ####[id number] [place] [address] RH TYPE Positive Normal [facility] Comment on above: Performed By: #### L IPID ####[id number] [place] [address] Daily Progress Note-Yann kathy 03-21-2018 Protein mass conc Service: Cardiology Subjective [...] episode unprovoked PE) Objective Data: Objective Information:T [id number]/7997% Date/Time03/21 12: 12: 12: 12: 12:00Range(36C - 36.5C ) (78 - 90 ) (18 - 21 ) (134 - 171 )/ (73 - 102 ) (96%- 97% ) Pain with Activity reported at 03/21 8:30: 0Pain at Rest reported at 03/21 8:30: 0 Tjyqzey13/3 4:19: Weight in kg (Weight (kg)) 108.7113 4:19: Weight in lbs ((lbs)) 239.6 Physical Exam: Constitutional: Resting in bed, NADHead/Neck: No JVDRespiratory/Thorax: CTABCardiovascular: RRR, S1 L1Rrgnelcwayoueuyl: soft, NT/NDExtremities: No edemaNeurological: alert and oriented n8Tucnwkmxbimed: Appropriate mood and behaviorSkin: psoriasis plaque over elbows and knees; otherwise warm and dry Medication: Medications: Continuous Medications ---- 1. Heparin 25,000 units/ D5W 250 mL Infusion: 1000 units/hr IntraVenous Scheduled Medications ---- 1. Aspirin Chewable: 81 mg Oral Daily2. Atorvastatin: 40 mg Oral Daily3. Carvedilol: 12.5 mg Oral 2 Times a Day4. Citalopram: 20 mg Oral Daily5. Docusate 50 mg - Senna 8.6 m tablet(s) Oral 2 Times a Day6. Fludrocortisone: 0.05 mg Oral Daily7. Heparin (Repeat Bolus) Injectable: 4000 unit(s) IntraVenous Push Every 2Odvud4. Hydrocortisone: 10 mg Oral 9. Hydrocortisone: 5 [...] Times a Day17. Sodium Chloride 0.65% Nasal [place]: 2 spray(s) Each Nostril 2 Times aDay PRN Medications ---- 1. Dextrose 50% in Water Injectable: 25 gram(s) IntraVenous Push Every 78Reheari8. Glucagon Injectable: 1 mg IntraMuscular Every 15 Minutes Recent Lab Results: Results: I have reviewed these laboratory results: Glucose_POCT Trending View Raygxi67-Vps-1279 12:06:00 21-Mar-2018 08:37:00Glucose-JJKT420 H 192 H Heparin assay, UFH Trending View Brrlqk42-[id number] 07:10:00 21-Mar-2018 03:30:00 20-Mar-2018 22:05:00Heparin assay, UFH0.4 [...] A4C: 17.4cm2LA Area A2C: 14.2 cm2LA [place] A4C: 6.0 cmLA [place] A2C: 4.7 cmLA Volume Index: 15.2 ml/m2RA VOLUME BY A/L METHOD: Normal Ranges:RA Area A4C: 12.8 fk0P-PEMF MEASUREMENTS: Normal Ranges:Ao Root: 2.90 cm (2.0-3.7cm)LAs: [...] T2DM, Addisson's, GERD, prostate ca s/p prostatectomy [id number], hypothyroidism, psoriasis, and most recently diagnosed with a PE andmultivessel CAD transferred to medicine at [facility] from [facility] on03/18 for CABG eval. 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 daily- Reduce hydrocortisone to 10mg/5mg/2.5mg- Follow Endocrine recs when NPO GERD- Continue home PPI HTN- Holding LAUREN- 159/83 - 171/102 over past 24 hours- 03/20 Increase Carvedilol to 12.5mg BID- Monitor BP with reducing Florinef dose DLD- Atorva 40mg- lipids 155/44/82/141 HypothyroidismTSH 2.51- Continue home levothyroxine GI ppx: on PPICode status: Full Electronic Signatures:Rhiannon Patinoara Shaq (LITHOGRAPH PRESS OPERATOR TINWARE-CUSTOMER SERVICE LEADER) (Signed 21-Mar-2018 14:04)Authored: Service, Subjective Data, Objective Data, Assessment and Plan,Signature/Cosignature/A ttestationSPatiecne decker) (Signed 22-Mar-2018 13:55)Co-Signer: Service, Subjective Data, Objective Data, Assessment and Plan,Signature/Cosignature/A ttestation Last Updated: 22-Mar-2018 13:55 by Patience Sow) Normal [facility] Daily Progress Note-Endocrin ologyon 03-21-2018 Protein mass conc Consult Type: subseq uent visit/care Service: Endocrinology Subjective Data:DON ELKINS is a 67 year old Male who is Hospital Day # 4. Patient is doing okay today. Mo Complaints.His CABG was postponed.Possible IVC filter early next week. Objective Data: Objective Information:T VZCUCfT4Qknoi85.07762828/819 7%Date/Time03/21 8: 8: 8: 8: 8:00Range(36.3C - 36.5C [...] dry, acanthosis nigricans Medication: Medications: Continuous Medications ---- 1. Heparin 25,000 units/ D5W 250 mL Infusion: 1000 units/hr IntraVenous Scheduled Medications ---- 1. Aspirin Chewable: 81 mg Oral Daily2. Atorvastatin: 40 mg Oral Daily3. Carvedilol: 12.5 mg Oral 2 Times a Day4. Citalopram: 20 mg Oral Daily5. Docusate 50 mg - Senna 8.6 m tablet(s) Oral 2 Times a Day6. Fludrocortisone: 0.05 mg Oral Daily7. Heparin (Repeat Bolus) Injectable: 4000 unit(s) IntraVenous Push Every 7Jfnvk0. Hydrocortisone: 10 mg Oral 9. Hydrocortisone: 5 mg Oral 10. Hydrocortisone: 2.5 mg Oral 11. Insulin Lispro Mild Corrective Scale: unit(s) SubCutaneous 3 Times a DayBefore Meals12. Levothyroxine: 150 microgram(s) Oral Daily13. Mupirocin 2%: 0.5 application(s) Each Nostril 2 Times a Day14. Pantoprazole: 40 mg Oral Daily15. Polyethylene Glycol: 17 gram(s) Oral Daily16. rOPINIRole: 2 mg Oral 3 Times a Day PRN Medications ---- 1. Dextrose 50% in Water Injectable: 25 gram(s) IntraVenous Push Every 39Bbhppsi7. Glucagon Injectable: 1 mg IntraMuscular Every 15 Minutes Recent Lab Results: Results: I have reviewed these laboratory results: Glucose_POCT Trending View [id number]-[id number] 08:37:00 20-Mar-2018 17:30:00 20-Mar-2018 13:24:00 20-Mar-2018 08:28:00 19-Mar-2018 21:30:00 19-Mar-2018 18:25:00Glucose-XRTQ891 H 243 H 234 H 195 H 308 H 226 H Complete Blood Count Trending View Shztqc09-Gbl-3455 19:09:00 19-Mar-2018 17:57:00White Blood Cell Count11.0 10.8Nucleated Erythrocyte Count0.0 0.0Red Blood Cell Count4.48 L 4.32 LHGB14.0 13.4 LHCT40.8 L 39.6 LMCV91 10XGJY86.3 33.6MEN372 259RDW-CV13.1 13.0 Renal Function Panel Trending View Ltpevd77-Ihq-3797 19:09:00 19-Mar-2018 17:57:00Glucose, Xeweq001 H 229 YUS367 137K4.0 3.2JG864 102Bicarbonate, Serum24 23Anion Gap, Serum16 22BWF73 25 HCREAT1.38 H 1.36 HGFR-Non Hghvlotx77 A 52 AGFR- Qnoiljjf31 63Calcium, Serum9.0 9.4Phosphorus, Serum4.3 3.6ALB3.9 3.9 Assessment and Plan:Assessment: Mr. Elkins is a 67 yo WM with no known history of CAD, who has a past medicalhistory of HTN, HLD, T2DM, Colbert's disease, hypothyroidism, COPD, AKASH onCPAP, prostate ca s/p prostatectomy in 2011, and psoriasis [facility].Endocrine consulted fr evaluation of Colbert disease and treatment periop Patient is o supra-therapeutic dose of HCT 20-0-20 , fludrocortisone 0.1 ,mgdailyPatient has uncontrolled HTN and uncontrolled BS REcs:-Continue Fludrocortisone to 0.05 mg daily- Continue Hydrocortisone to 10-5-2.5 mg at 2li-81it-6ll DAILY-- On day of IVC filter placement, [...] surgery please.-will follow Please page with questions [phone] Patient seen and examined, plan discussed with Dr Quevedo Signature/Cosignature/Attest ation:Attending AttestationI saw and evaluated the patient. I [...] patient (as noted in the above attestation) [id number] Electronic Signatures:Starr Quevedo) (Signed 23-Mar-2018 12:34)Authored: Signature/Cosignature/Attest ationCo-Signer: Service, Subjective Data, Objective Data, Assessment and Plan,Signature/Cosignature/A ttestationJob Torres (Resident)) (Signed 21-Mar-2018 11:41)Authored: Service, Subjective Data, Objective Data, Assessment and Plan,Signature/Cosignature/A ttestation Last Updated: 23-Mar-2018 12:34 by Starr Quevedo) Normal [facility] Daily Progress Note-Pulmonol ogyon 03-21-2018 Daily Progress Note-Pulmonology Service: Pulmonology Subjective Data:DON ELKINS is a 67 year old Male who is Hospital Day # 4. Additional Information:Pt denies any active complaints. has [facility] w/o CP/SOB.Previously, on occassion would have bleeding gums, but has not noticed anysince starting heparin. Reports cough, no sputum production. Objective Data: Objective Information:T ADHPYgU4Ifcaj809439355/7997% Date/Time03/21 12: 12: 12: 12: 12:00Range(36C - 36.5C ) (78 - 90 ) (18 - 21 ) (134 - 171 )/ (73 - 102 ) (96%- 97% ) Pain with Activity reported at 03/21 8:30: 0Pain at Rest reported at 03/21 8:30: 0T DNCMAsT0Pcwdm431030431/7997% Date/Time03/21 12: 12: 12: 12: 12:00Range(36C - 36.5C [...] affectSkin: warm, dry Medication: Medications: Continuous Medications ---- 1. Heparin 25,000 units/ D5W 250 mL Infusion: 1000 units/hr IntraVenous Scheduled Medications ---- 1. Aspirin Chewable: 81 mg Oral Daily2. Atorvastatin: 40 mg Oral Daily3. Carvedilol: 12.5 mg Oral 2 Times a Day4. Citalopram: 20 mg Oral Daily5. Docusate 50 mg - Senna 8.6 m tablet(s) Oral 2 Times a Day6. Fludrocortisone: 0.05 mg Oral Daily7. Heparin (Repeat Bolus) Injectable: 4000 unit(s) IntraVenous Push Every 1Oixmo7. Hydrocortisone: 10 mg Oral 9. Hydrocortisone: 5 mg Oral 10. Hydrocortisone: 2.5 mg Oral 11. Insulin Lispro Mild Corrective Scale: unit(s) SubCutaneous 3 Times a DayBefore Meals12. Levothyroxine: 150 microgram(s) Oral Daily13. Mupirocin 2%: 0.5 application(s) Each Nostril 2 Times a Day14. Pantoprazole: 40 mg Oral Daily15. Polyethylene Glycol: 17 gram(s) Oral Daily16. rOPINIRole: 2 mg Oral 3 Times a Day PRN Medications ---- 1. Dextrose 50% in Water Injectable: 25 gram(s) IntraVenous Push Every 27Ktvglkq0. Glucagon Injectable: 1 mg IntraMuscular Every 15 Minutes Recent Lab Results: Results: I have reviewed these laboratory results: Glucose_POCT Trending View [id number]-[id number] 12:06:00 21-Mar-2018 08:37:00Glucose-ROFC718 H 192 H Heparin assay, UFH Trending View Pzirxq63-Mpo-5071 07:10:00 21-Mar-2018 03:30:00Heparin assay, UFH0.4 0.4 Assessment [...] discussed with Dr. Floyd call with questions [phone] Signature/Cosignature/Attest ation:Attending AttestationI saw and evaluated the patient. I [...] patient (as noted in the above attestation) [id number] Electronic Signatures:Angie Fuentes) (Signed 03-Apr-2018 14:11)Authored: Signature/Cosignature/Attest ationCo-Signer: Assessment and Plan, Signature/Cosignature/Attest ationSJoseph gary (Fellow)) (Signed 21-Mar-2018 13:00)Authored: Service, Subjective Data, Objective Data, Assessment and Plan,Signature/Cosignature/A ttestation Last Updated: 03-Apr-2018 14:11 by Angie Fuentes) Normal [facility] GLUCOSE-POCTon 03-21-2018 Glucose mass conc 220 mg/dL High - 99 [facility] Comment on above: Performed By: #### R ENAL ####[id number] [place] [address] Glucose mass conc 269 mg/dL High 74 - 99 [facility] Comment on above: Performed By: #### R ENAL ####[id number] [place] [address] Glucose mass conc 255 mg/dL High 74 - 99 [facility] Comment on above: Performed By: #### R ENAL ####[id number] [place] [address] Glucose mass conc 192 mg/dL High 74 - 99 [facility] Comment on above: Performed By: #### R ENAL ####[id number] [place] [address] HEPARIN ASSAY,UFHon 03-21-20 18 HEPARIN ASSAY,UFH 0.3 IU/mL Normal [facility] Comment on above: Result Comment: The therapeutic reference range for UFH may be either 0.3-0.6 IU/mL or 0.3-0.7 IU/mL based on the clinical setting for anticoagulant therapy and the associated nomogram used. For heparin dosing guidelines based on clinical scenario and Heparin Assay results, please refer to local Pharmacy and the [facility] Guidelines for Anticoagulation therapy available on the [facility] intranet at:[email or web address]/Pharmacy/Pages/[place]_ ospitals_Guidelines_for_Anticoagu.aspx Performed By: #### R ENAL ####[id number] [place] [address] HEPARIN ASSAY,UFH 0.4 IU/mL Normal [facility] Comment on above: Result Comment: The therapeutic reference range for UFH may be either 0.3-0.6 IU/mL or 0.3-0.7 IU/mL based on the clinical setting for anticoagulant therapy and the associated nomogram used. For heparin dosing guidelines based on clinical scenario and Heparin Assay results, please refer to local Pharmacy and the [facility] Guidelines for Anticoagulation therapy available on the [facility] intranet at:https://[facility]/Pharmacy/Pages/[place]_ ospitals_Guidelines_for_Anticoagu.aspx Performed By: #### R ENAL ####[id number] [id number] HEPARIN ASSAY,UFH 0.4 IU/mL Normal [facility] Comment on above: Result Comment: The therapeutic reference range for UFH may be either 0.3-0.6 IU/mL or 0.3-0.7 IU/mL based on the clinical setting for anticoagulant therapy and the associated nomogram used. For heparin dosing guidelines based on clinical scenario and Heparin Assay results, please refer to local Pharmacy and [facility] Guidelines for Anticoagulation therapy available on the [facility] intranet at:https://[email or web address]/Pharmacy/Pages/[place]_ [place]sp[place]_Guidelines_for_Anticoagu.aspx Performed By: #### C OAGS ####[id number] [place] [address] HEPARIN ASSAY,UFH 0.2 IU/mL Normal [facility] Comment on above: Result Comment: The therapeutic reference range for UFH may be either 0.3-0.6 IU/mL or 0.3-0.7 IU/mL based on the clinical setting for anticoagulant therapy and the associated nomogram used. For heparin dosing guidelines based on clinical scenario and Heparin Assay results, please refer to local Pharmacy and the [facility] Guidelines for Anticoagulation therapy available on the [facility] intranet at:https://[email or web address]/Pharmacy/Pages/[place]_ [place]sp[place]_Guidelines_for_Anticoagu.aspx Performed By: #### C OAGS ####[id number] [place] [address] CBCon 03-20-2018 Erythrocyte distribution width Auto Ratio (RBC) 13.1 % Normal 11.5 - 14.5 [facility] Comment on above: Performed By: #### C OAGS ####[id number] [place] [address] Hematocrit Auto Volume Fraction (Bld) 40.8 % Low 41.0 - 52.0 [facility] Comment on above: Performed By: #### C OAGS ####[id number] [place] [address] Hemoglobin mass conc (Bld) 14.0 g/dL Normal 13.5 - 17.5 [facility] Comment on above: Performed By: #### C OAGS ####[id number] [place] [address] MCHC Auto mass conc (RBC) 34.3 g/dL Normal 32.0 - 36.0 [facility] Comment on above: Performed By: #### C OAGS ####[id number] [place] [address] MCV Auto Entitic volume (RBC) 91 fL Normal 80 - 100 [facility] Comment on above: Performed By: #### C OAGS ####[id number] [place] [address] Nucleated RBC/100 WBC Ratio (Bld) 0.0 /100 WBC Normal 0.0-0.0 [facility] Comment on above: Performed By: #### C OAGS ####[id number] [place] [address] Platelets Auto #/vol (Bld) 252 10*3/uL Normal 150 - 450 [facility] Comment on above: Performed By: #### C OAGS ####[id number] [place] [address] RBC Auto #/vol (Bld) 4.48 x10E12/L Low 4.50 - 5.90 [facility] Comment on above: Performed By: #### C OAGS ####[id number] [id number] WBC Auto #/vol (Bld) 11.0 10*3/uL Normal 4.4 - 11.3 [facility] Comment on above: Performed By: #### C OAGS ####[id number] [id number] Clinical Event Note-Regardin g PE per Dr. Angel 03-20-2018 Clinical Event Note-Regarding PE per Dr. Yu Event:Topic: Regarding PE per Dr. YuDetails:Per Dr. Yu would like IVC Filter placed today 03/20/2018, and ideallystabilization for one week would be optimal.Will advice Dr. Gaston. Provider / Team Contact Information:Provider/Team Contact Info-Pager Number: cardiac surgery [phone] Electronic Signatures:Gilda Tai (LITHOGRAPH PRESS OPERATOR TINWARE-CUSTOMER SERVICE LEADER) (Signed 20-Mar-2018 11:53)Authored: Event, Provider / Team Contact Information Last Updated: 20-Mar-2018 11:53 by Gilda Tai (LITHOGRAPH PRESS OPERATOR TINWARE-CUSTOMER SERVICE LEADER) Normal [facility] Consult-Endocrinologyon Consult-Endocrinolo gy Service:Service: Endocrinology History of Present Illness:Admission Reason: Transferred for CABG evalHPI:PCP: Sal Hernandez (jaleesa) - Levi Sinha: [place] 67 yo WM with no known history of CAD, who has a past medical history of HTN,HLD, T2DM, Brigida's disease, hypothyroidism, COPD, AKASH on CPAP, prostate spring/p prostatectomy in 2011, and psoriasis who [facility] on 03/18 for CABG eval. Family history significant for [place], [place], CHF, HTN, DM and DLD. He quit zsurcnw91 years ago. Has an occasional beer, and denies any drug use. 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 Endocrine Consulted for evalaution of Colbert disease and HCt dosing preop. 12 points ROS obtained and negative unless otherwise stated above Outside Hospital cardiac work up:CTA at [place]:Pulmonary emboli involving the bilateral lobar segmental, and severalsubsegmental branches (RUL, RML, RLL, FIDEL, LLL). TTE at [facility] 03/15/18:EF 60-65% PMH: HTN, HLD, T2DM, Brigida's [...] microscopic hematuria, rootcanal 2 weeks ago. FHx: CAD/UT, cancer, DM, HTN, migraines, CVA Social: former [...] No Known Allergies: Objective: Objective Information: T TYEUEzT2Xipoz11.70286949/749 6%Date/Time03/20 11::: 11: 11:07Range(36.1C - 37.1C ) (67 - 90 ) (16 - 18 ) (119 - 174 )/ (74 - 101 )(95% - 97% )Highest temp of 37.1 C was recorded at 03/20 5:35 Physical Exam: Constitutional: central obesity , moonlike Facies , acanthosis nigricans, skintags , Supraclavicular fat beglu9z7 RRRBP high up to 170 systolic in am treated with hydralazineno proximal myopathydarkening of the skin manly on the handsreflexes nle with no delayed relaxation phase Medications: Medications: Continuous Medications ---- 1. Heparin 25,000 units/ D5W 250 mL Infusion: 1000 units/hr IntraVenous Scheduled Medications ---- 1. Aspirin Chewable: 81 mg Oral Daily2. Atorvastatin: 40 mg Oral Daily3. Carvedilol: 12.5 mg Oral 2 Times a Day4. Citalopram: 20 mg Oral Daily5. Docusate 50 mg - Senna 8.6 m tablet(s) Oral 2 Times a Day6. Fludrocortisone: 0.1 mg Oral Daily7. Heparin (Repeat Bolus) Injectable: 4000 unit(s) IntraVenous Push Every 4Xcsgu1. Hydrocortisone: 20 mg Oral 2 Times a Day9. Influenza Virus (Inactive) HIGH DOSE Adult Vaccine: 0.5 mL VwihkMdcwbeheMvzv53. Insulin Lispro Mild Corrective Scale: unit(s) SubCutaneous 3 Times a DayBefore Meals11. Levothyroxine: 150 microgram(s) Oral Daily12. Mupirocin 2%: 0.5 application(s) Each Nostril 2 Times a Day13. Pantoprazole: 40 mg Oral Daily14. Polyethylene Glycol: 17 gram(s) Oral Daily15. rOPINIRole: 2 mg Oral 3 Times a Day PRN Medications ---- 1. Dextrose 50% in Water Injectable: 25 gram(s) IntraVenous Push Every 84Hcubnnc1. Glucagon Injectable: 1 mg IntraMuscular Every 15 Minutes Recent Lab Results: Results: I have reviewed these laboratory results: Glucose_POCT Trending View Kpcvba07-Yhv-7403 08:28:00 19-Mar-2018 21:30:00 19-Mar-2018 18:25:00 19-Mar-2018 13:58:00 19-Mar-2018 08:27:00Glucose-SOHI249 H 308 H 226 H 175 H 172 H Renal Function Panel Trending View [id number]-Xzi-4993 17:57:00 19-Mar-2018 00:39:00Glucose, Etadv584 H 206 ZHO098 138K3.9 4.0MH373 102Bicarbonate, Serum23 23Anion Gap, Serum16 90DXW57 H 30SVDXP8.36 H 1.42 HGFR-Non Egclutww07 A 50 AGFR- Kxkfxlml31 61Calcium, Serum9.4 9.2Phosphorus, Serum3.6 3.5ALB3.9 4.1 Hepatic [...] a past medical history of HTN,HLD, T2DM, Colbert's disease, hypothyroidism, COPD, AKASH on CPAP, prostate spring/p prostatectomy in 2011, and psoriasis who [facility] on 03/18 for CABG eval.Endocrine consulted fr evlaution of Colbert disease and treatment periop Patient is o supratherapeutic dose of HCT 20-0-20 , fludrocortisone 0.1 ,mgdailyPAtient has uncontrolled HTn and uncontrolled BS REcs:-Please decrease Fludro to 0.05 mg daily-Please change HCt to 10-5-2.5 mg at [id number]-[id number]-[id number] DAILY-On the day of the surgery please give HCt 30 mg by mouth once at 5 am , checkthe cortisol level at 7 am , then continue HCt as 25 mg IV q6hrs thereafter asof 8 am. Please keep endo team informed about the date of the surgery please.-will follow Patient seen and examined, plan discussed with Dr Quevedo Signature/Cosignature/Attest ation:Attending AttestationI saw and evaluated the patient. I [...] patient (as noted in the above attestation) [id number] Electronic Signatures:Starr Quevedo) (Signed 21-Mar-2018 10:00)Authored: Signature/Cosignature/Attest ationCo-Signer: Service, History of Present Illness, Allergies, Objective,Assessment/Recomme ndations, Signature/Cosignature/Attest yesseniaionJob Torres ( (Resident)) (Signed 20-Mar-2018 11:37)Authored: Service, History of Present Illness, Allergies, ObjectiveHasmukh Stephenson (Resident)) (Signed 20-Mar-2018 16:47)Entered: Objective, Assessment/Recommendations,S ignature/Cosignature/Attesta tionAuthored: Service, History of Present Illness, Allergies, Objective,Assessment/Recomme ndations, Signature/Cosignature/Attest ation Last Updated: 21-Mar-2018 10:00 by Starr Quevedo) Normal [facility] Consult-Pulmonologyon 2017 Consult-Pulmonology Service:Service: Pul monology Consult:Consult requested by (Attending Name): Bradford Calderon: [...] sided chest pain, associated with nausea. On03/16 patrol mother, he woke up with central chest pressure [...] hematuria, rootcanal 2 weeks agoFamily history: [place], [place], CHF, HTN, DM and DLD. He quit smoking 20 years ago.Social Hx: Has an occasional beer, and denies any drug use. 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 Heparin 25,000 units/ D5W 250 mL Infusion: 1000 units/hr IntraVenous Scheduled Medications ---- 1. Aspirin Chewable: 81 mg Oral Daily2. Atorvastatin: 40 mg Oral Daily3. Carvedilol: 12.5 mg Oral 2 Times a Day4. Citalopram: 20 mg Oral Daily5. Docusate 50 mg - Senna 8.6 m tablet(s) Oral 2 Times a Day6. Fludrocortisone: 0.1 mg Oral Daily7. Heparin (Repeat Bolus) Injectable: 4000 unit(s) IntraVenous Push Every 7Ifore6. Hydrocortisone: 20 mg Oral 2 Times a Day9. Influenza Virus (Inactive) HIGH DOSE Adult Vaccine: 0.5 mL AwfltFvbvcjsvMotc87. Insulin Lispro Mild Corrective Scale: unit(s) SubCutaneous 3 Times a DayBefore Meals11. Levothyroxine: 150 microgram(s) Oral Daily12. Mupirocin 2%: 0.5 application(s) Each Nostril 2 Times a Day13. Pantoprazole: 40 mg Oral Daily14. Polyethylene Glycol: 17 gram(s) Oral Daily15. rOPINIRole: 2 mg Oral 3 Times a Day PRN Medications ---- 1. Dextrose 50% in Water Injectable: 25 gram(s) IntraVenous Push Every 19Gymirmf1. Glucagon Injectable: 1 mg IntraMuscular Every 15 [...] A4C: 17.4cm2LA Area A2C: 14.2 cm2LA [place] A4C: 6.0 cmLA [place] A2C: 4.7 cmLA Volume Index: 15.2 ml/m2RA VOLUME BY A/L METHOD: Normal Ranges:RA Area A4C: 12.8 gu6D-BXGW MEASUREMENTS: Normal Ranges:Ao Root: 2.90 cm (2.0-3.7cm)LAs: [...] msec (150-240 msec)PulmV Sys Jeremiah: 51.80 cm/sPulmV Pabol Jeremiah: 29.80 cm/sPulmV S/D Jeremiah: 1.70PulmV A [...] seen, examine and discussed with Dr. Yu. Signature/Cosignature/Attest ation:Attending AttestationI saw and evaluated the patient. I [...] patient (as noted in the above attestation) [id number]/ Additional FindingsConsulted for unprovoked PE. MOdest clot [...] Illness, Review Family/Social History andROS, Allergies, Objective, Assessment/Recommendations,S ignature/Cosignature/Attesta Zac Pisano (DO) (Signed 21-Mar-2018 11:03)Entered: Signature/Cosignature/Attest ationAuthored: Service, History of Present Illness, Review Family/Social Historyand ROS, Allergies, Objective, Assessment/Recommendations,S ignature/Cosignature/Attesta tion Last Updated: 21-Mar-2018 11:03 by Zac Yu (DO) Normal [facility] Daily Progress Note-Cardiac Surgeryon 03-20-2018 Protein mass conc Consult Type: subseq uent visit/care Service: Cardiac Surgery Subjective Data:DON ELKINS is a 67 year old Male who is Hospital Day # 3. Objective Data: Objective Information:T TTUUZvY8Vockd04.46622285/102 96%Date/Time03/20 11: 16: 16: 16: 16:53Range(36.1C - 37.1C ) (67 - 90 ) (17 - 20 ) (119 - 174 )/ (74 - 102 )(96% - 97% )Highest temp of 37.1 C was recorded at 03/20 5:35 Pain with Activity reported at 03/20 20:26: 0Pain at Rest reported at 03/20 20:26: 0 Kopsyep51/2 5:35: Weight in kg (Weight (kg)) 108.9105/20 5:35: Weight in lbs ((lbs)) 240 Medication: Medications: Continuous Medications ----1. Heparin 25,000 units/ D5W 250 mL Infusion: 1000 units/hr IntraVenous Scheduled Medications ----1. Aspirin Chewable: 81 mg Oral Daily2. Atorvastatin: 40 mg Oral Daily3. Carvedilol: 12.5 mg Oral 2 Times a Day4. Citalopram: 20 mg Oral Daily5. Docusate 50 mg - Senna 8.6 m tablet(s) Oral 2 Times a Day6. Heparin (Repeat Bolus) Injectable: 4000 unit(s) IntraVenous Push Every 5Fuxrm5. Hydrocortisone: 10 mg Oral 8. Hydrocortisone: 5 mg Oral 9. Hydrocortisone: 2.5 mg Oral 10. Insulin Lispro Mild Corrective Scale: unit(s) SubCutaneous 3 Times a DayBefore Meals11. Levothyroxine: 150 microgram(s) Oral Daily12. Mupirocin 2%: 0.5 application(s) Each Nostril 2 Times a Day13. Pantoprazole: 40 mg Oral Daily14. Polyethylene Glycol: 17 gram(s) Oral Daily15. rOPINIRole: 2 mg Oral 3 Times a Day PRN Medications ----1. Dextrose 50% in Water Injectable: 25 gram(s) IntraVenous Push Every 13Bvhxigp6. Glucagon Injectable: 1 mg IntraMuscular Every 15 [...] buproprion, chloroquine, chlorpromazine, ephedrine, mephentermine, fenfluramine, phentermine, phenylpropanolamineBarbitura te Screen, Urine PRESUMPTIVE NEGATIVE PRESUMPTIVE NEGATIVE CUTOFF [...] NEGATIVE CUTOFF LEVEL: 150 NG/ML The metabolite T-hohul-vbizxpelukdoni (LAAM) is not detected by this method [...] Urine YELLOW Reference Range: STRAW,YELLOWAppearance, Urine CLEARSpecific [place], Urine 1.013pH, Urine 6.0Protein, Urine NEGATIVEGlucose, Urine [...] 2011, and psoriasis who was transferred to [facility] from [facility] on 03/18 for CABG eval. Ptpresented to [place] with chest pressure and dyspnea. He as found to havebilat PEs, was started on Heparin gtt, and transferred to [facility]. He wasfound to have a troponin leak at 2.25. Cardiology was consulted and the patientwas diagnosed with ACS, NSTEMI. He underwent a TTE and cath. He had normal EF,mild AI, and triple vessel CAD so was transferred to [facility] for CABG eval.Cardiac surgery consulted 03/19 for [...] surgery immediately if the patient deteriorates clinically Signature/Cosignature/Attest ation:Provider/Team Contact Info-Pager Numbercardiac surgery [phone] Electronic Signatures:Mary Munroe (LITHOGRAPH PRESS OPERATOR TINWARE-CUSTOMER SERVICE LEADER) (Signed 20-Mar-2018 20:40)Authored: Service, Subjective Data, Objective Data, Assessment and Plan,Signature/Cosignature/A ttestation Last Updated: 20-Mar-2018 20:40 by Mary Munroe (LITHOGRAPH PRESS OPERATOR TINWARE-CUSTOMER SERVICE LEADER) Normal [facility] Daily Progress Note-Yann chavez 03-20-2018 Protein mass [...] Hydrocortisone per Endocrinology Objective Data: Objective Information:T YTSOPpL0Eozah65.54556024/102 96%Date/Time03/20 11: 16:5303/20 16: 16: 16:53Range(36.1C - 37.1C ) (67 - 90 ) (17 - 20 ) (119 - 174 )/ (74 - 102 )(96% - 97% )Highest temp of 37.1 C was recorded at 03/20 5:35 Pain with Activity reported at 03/20 8:30: 0Pain at Rest reported at 03/20 8:30: 0 Mvwuhgw98/2 5:35: Weight in kg (Weight (kg)) 108.911 5:35: Weight in lbs ((lbs)) 240 Physical Exam: Constitutional: Resting in bed, NADHead/Neck: No JVDRespiratory/Thorax: CTABCardiovascular: RRR, S1 G2Xxsaasnjwqyznysd: soft, NT/NDExtremities: Right wrist site of catheterization intact, normal pulse. Noperipheral edemaNeurological: alert and oriented k8Ggeziihdkahzs: Appropriate mood and behaviorSkin: psoriasis plaque over elbows and knees Medication: Medications: Continuous Medications ---- 1. Heparin 25,000 units/ D5W 250 mL Infusion: 1000 units/hr IntraVenous Scheduled Medications ---- 1. Aspirin Chewable: 81 mg Oral Daily2. Atorvastatin: 40 mg Oral Daily3. Carvedilol: 12.5 mg Oral 2 Times a Day4. Citalopram: 20 mg Oral Daily5. Docusate 50 mg - Senna 8.6 m tablet(s) Oral 2 Times a Day6. Heparin (Repeat Bolus) Injectable: 4000 unit(s) IntraVenous Push Every 4Qthfa6. Hydrocortisone: 10 mg Oral 8. Hydrocortisone: 5 mg Oral 9. Hydrocortisone: 2.5 mg Oral 10. Insulin Lispro Mild Corrective Scale: unit(s) SubCutaneous 3 Times a DayBefore Meals11. Levothyroxine: 150 microgram(s) Oral Daily12. Mupirocin 2%: 0.5 application(s) Each Nostril 2 Times a Day13. Pantoprazole: 40 mg Oral Daily14. Polyethylene Glycol: 17 gram(s) Oral Daily15. rOPINIRole: 2 mg Oral 3 Times a Day PRN Medications ---- 1. Dextrose 50% in Water Injectable: 25 gram(s) IntraVenous Push Every 43Lgandva9. Glucagon Injectable: 1 mg IntraMuscular Every 15 Minutes Recent Lab Results: Results: I have reviewed these laboratory results: Glucose_POCT Trending View [id number]-[id number] 17:30:00 20-Mar-2018 13:24:00 20-Mar-2018 08:28:00 19-Mar-2018 21:30:00 19-Mar-2018 18:25:00Glucose-BPUG128 H 234 H 195 H 308 H [...] A4C: 17.4cm2LA Area A2C: 14.2 cm2LA [place] A4C: 6.0 cmLA [place] A2C: 4.7 cmLA Volume Index: 15.2 ml/m2RA VOLUME BY A/L METHOD: Normal Ranges:RA Area A4C: 12.8 ww2M-EFQG MEASUREMENTS: Normal Ranges:Ao Root: 2.90 cm (2.0-3.7cm)LAs: [...] T2DM, Addisson's, GERD, prostate ca s/p prostatectomy ov4315, hypothyroidism, psoriasis, and most recently diagnosed with a PE andmultivessel CAD transferred to medicine at [facility] from [facility] on03/18 for CABG eval. Multiple PEs- [...] 7.9%- BS 172, 175, 226, 308, 195 Colbert's disease- Reduce fludrocortisone to 0.05 mg daily- Reduce hydrocortisone to 10mg/5mg/2.5mg- Follow Endocrine recs pre op GERD- Continue home PPI HTN- Holding LAUREN- 120/79 - 171/93- Increase Carvedilol to 12.5mg BID- Monitor BP with reducing Florinef dose DLD- Atorva 40mg- lipids 155/44/82/141 HypothyroidismTSH 2.51- Continue home levothyroxine GI ppx: on PPICode status: Full Electronic Signatures:Vito Patino (LITHOGRAPH PRESS OPERATOR TINWARE-CUSTOMER SERVICE LEADER) (Signed 20-Mar-2018 19:13)Authored: Service, Subjective Data, Objective Data, Assessment and Plan,Signature/Cosignature/A ttestationMor Calderon) (Signed 01-Apr-2018 13:54)Co-Signer: Service, Subjective Data, Objective Data, Assessment and Plan,Signature/Cosignature/A ttestation Last Updated: 01-Apr-2018 13:54 by Mor Calderon) Normal [facility] GLUCOSE-POCTon 03-20-2018 Glucose mass conc 243 mg/dL High 74 - 99 [facility] Comment on above: Performed By: #### C OAGS ####[id number] [place] [address] Glucose mass conc 234 mg/dL High 74 - 99 [facility] Comment on above: Performed By: #### C OAGS ####[id number] [place] [address] Glucose mass conc 195 mg/dL High 74 - 99 [facility] Comment on above: Performed By: #### C BC ####[id number] [place] [address] HEMOGLOBIN A1Con 03-20-2018 Glucose mass conc Canceled Normal [facility] Comment on above: Order Comment: TEST HEMOGLOBIN A1C WAS CANCELLED, 03/20/2018 18:41 DUPLICATE ORDER. Performed By: #### C OAGS ####[id number] [place] [address] Hemoglobin A1c/Hemoglobin.tota l mass fraction (Bld) Canceled Normal [facility] Comment on above: Order Comment: TEST HEMOGLOBIN A1C WAS CANCELLED, 03/20/2018 18:41 DUPLICATE ORDER. Result Comment: Diag nosis of Diabetes-Adults Non-Diabetic: < or = 5.6% Increased risk for developing diabetes: 5.7-6.4% Diagnostic of diabetes: > or = 6.5%. Monitoring of Diabetes Age (y) Therapeutic Goal (%) Adults: >18 <7.0 Pediatrics: 13-18 <7.5 7-12 <8.0 0- 6 7.5-8.5 [employer]. Diabetes Care 33(S1), May 2009. Performed By: #### C OAGS ####[id number] [place] [address] HEPARIN ASSAY,UFHon 03-20-20 HEPARIN ASSAY,UFH 0.1 IU/mL Normal [facility] Comment on above: Result Comment: The therapeutic reference range for UFH may be either 0.3-0.6 IU/mL or 0.3-0.7 IU/mL based on the clinical setting for anticoagulant therapy and the associated nomogram used. For heparin dosing guidelines based on clinical scenario and Heparin Assay results, please refer to local Pharmacy and the [facility] Guidelines for Anticoagulation therapy available on the [facility] intranet at:[email or web address]/[email or web address]_ [email or web address]_Guidelines_for_[email or web address].aspx Performed By: #### C OAGS ####[id number] [place] [address] MAGNESIUMon 03-20-2018 Magnesium mass conc Canceled Normal [facility] Comment on above: Order Comment: TEST MAGNESIUM WAS CANCELLED, 03/20/2018 08:04 NO SPECIMEN RECEIVED IN LAB. Performed By: #### C BC ####[id number] [place] [address] RENAL FUNCTION PANELon 03-20 Albumin mass conc 3.9 g/dL Normal 3.4 - 5.0 [facility] Comment on above: Performed By: #### C OAGS ####[id number] [place] [address] Anion gap 3 molar conc 16 mmol/L Normal 10 - 20 [facility] Comment on above: Performed By: #### C OAGS ####[id number] [place] [address] Calcium mass conc 9.0 mg/dL Normal 8.6 - 10.6 [facility] Comment on above: Performed By: #### C OAGS ####[id number] [place] [address] Chloride molar conc 102 mmol/L Normal 98 - 107 [facility] Comment on above: Performed By: #### C OAGS ####[id number] [place] [address] Creatinine mass conc 1.38 mg/dL High 0.50 - 1.30 [facility] Comment on above: Performed By: #### C OAGS ####[id number] [place] [address] GFR- AM. 62 mL/min/1.73m2 Normal >60 [facility] Comment on above: Result Comment: CALC ULATIONS OF ESTIMATED GFR ARE PERFORMED USING THE MDRD STUDY EQUATION FOR THE IDMS-TRACEABLE CREATININE METHODS. CLIN CHEM 2007;53:766-72 Performed By: #### C OAGS ####[id number] [place] [address] GFR-NON AM. 51 mL/min/1.73m2 Abnormal >60 [facility] Comment on above: Performed By: #### C OAGS ####[id number] [place] [address] Glucose mass conc 201 mg/dL High 74 - 99 [facility] Comment on above: Performed By: #### C OAGS ####[id number] [place] [address] HCO3 molar conc (Bld) 24 mmol/L Normal 21 - 32 [facility] Comment on above: Performed By: #### C OAGS ####[id number] [place] [address] Phosphate mass conc 4.3 mg/dL Normal 2.5 - 4.9 [facility] Comment on above: Result Comment: The performance characteristics of phosphorus testing in heparinized plasma have been validated by the individual laboratory site where testing is performed. Testing on heparinized plasma is not approved by the FDA; however, such approval is not necessary. Performed By: #### C OAGS ####[id number] [place] [address] Potassium molar conc 4.0 mmol/L Normal 3.5 - 5.3 [facility] Comment on above: Performed By: #### C OAGS ####[id number] [place] [address] Sodium molar conc 138 mmol/L Normal 136 - 145 [facility] Comment on above: Performed By: #### C OAGS ####[id number] [place] [address] Urea nitrogen mass conc 22 mg/dL Normal 6 - 23 [facility] Comment on above: Performed By: #### C OAGS ####[id number] [place] [address] [facility] Arterial Duplex Ult rasoundon 03-20-2018 VAS LAB Arterial Duplex Ultrasound [facility], [address] [place], [place] [id number] and Vascular Lab Report Upper Arterial Duplex Ultrasound Patient Name: DON ELKINS Reading Physician: [id number] Fall MDStudy Date: 03/20/2018 Referring Physician: [id number] Calderon MDMRN/PID: [id number] PCP:Accession/Order#: [id number] CC Report to:Date of : 1950 Technologist: Jasvir Mckoy: Cristhian Technologist 2:Admission Status: Inpatient Location Performed: [facility] Diagnosis/ICD: I24.8-Cardiac Ischemia;Z01.818-Encounter for other preprocedural examinationProcedure/CPT: 15949 Upper arterial Duplex Limited-22430 CONCLUSIONS:Right Upper Arterial: The right radial artery is patent with triphasic waveforms.Left Upper Arterial: The left radial artery is patent with triphasic waveforms. Imaging & Doppler Findings: Right Left PSV Waveform PSV Bgoroyuw46 cm/s Triphasic Radial 87 cm/s Triphasic Right LeftRadial Diam P 2.6 mm 2.2 mmRadial Diam M 2.5 mm 2.2 mmRadial Diam D 2.3 mm 2.0 mm [id number] Olesya Fall MD Final Normal [facility] VAS LAB Carotid Artery Dupl ex Ultrasounon 03-20-2018 VAS LAB Carotid Artery Duplex Ultrasoun [facility], [address] [place], [place] [id number] and Vascular Lab Report Carotid Artery Duplex Ultrasound Patient Name: DON ELKINS Reading Physician: Janis Fall MDStudy Date: 03/20/2018 Referring Physician: [id number] MANRIQUEZRN/PID: [id number] PCP:Accession/Order#: [id number] CC Report to:Date of : 1950 Technologist: Jasvir Morrow Technologist 2:Admission Status: Inpatient Location Performed: [facility] Diagnosis/ICD: I24.8-Cardiac Ischemia;Z01.818-Encounter for other preprocedural examinationProcedure/CPT: 17401 Cerebrovacular Carotid Duplex scan complete-86750 CONCLUSIONS:Right Carotid: Findings are consistent with less [...] 206 cm/s Right LeftICA/CCA Ratio 1.3 0.8 [id number] Olesya Fall MD Final Normal [facility] VASC LAB PVR (Arterial Physi ologic) ABIon 03-20-2018 VASC LAB PVR (Arterial Physiologic) BROOKS [facility], [address] [place] [address] and Vascular Lab Report PVR BROOKS Patient Name: DON ELKINS Zaid Physician: [id number] Olesya Fall MDStudy Date: 03/20/2018 Referring Physician: [id number] Calderon MDMRN/PID: [id number] PCP:Accession/Order#: [id number] CC Report to:Date of : 1950 Technologist: Jasvir Morrow Technologist 2:Admission Status: Inpatient Location Performed: [facility] Diagnosis/ICD: I24.8-Cardiac Ischemia;Z01.818-Encounter for other preprocedural examinationProcedure/CPT: 58790 Peripheral artery BROOKS Only-61411 CONCLUSIONS:Right Upper PVR: Baseline indices less than [...] Right LeftBrachial Pressure 146 mmHg 143 mmHg [id number] Olesya Fall MD Final Normal [facility] VASC LAB PVR (Arterial Physiologic) BROO[facility], [address] [place] [address] and Vascular Lab Report PVR BROOKS Patient Name: DON ABRAHAM Reading Physician: [id number] Olesya Fall MDStudy Date: 03/20/2018 Referring Physician: [id number] Calderon MDMRN/PID: [id number] PCP:Accession/Order#: [id number] CC Report to:Date of : 1950 Technologist: Jasvir Morrow Technologist 2:Admission Status: Inpatient Location Performed: [facility] Diagnosis/ICD: I73.9-Peripheral vascular disease, unspecified;I24.8-Cardiac Ischemia;Z01.818-Encounter for other preprocedural examinationProcedure/CPT: 46901 Peripheral artery BROOKS Only-57674 CONCLUSIONS:Right Lower PVR: No evidence of arterial [...] and may make absolute Segmental Limb Pressures (RECREATION COORDINATOR) unreliable. Triphasic flow is noted in the [...] Right LeftBrachial Pressure 146 mmHg 145 mmHg [id number] Olesya Fall MD Final Normal [facility] VASC LAB Pre-op Vessel Vein Mappingon 03-20-2018 VASC LAB Pre-op Vessel Vein Mapping [facility], [address] [place] [address] and Vascular Lab Report Pre-op Vein Mapping Lower Patient Name: DON ELKINS Reading Physician: [id number] Olesya Fall MDStudy Date: 03/20/2018 Referring Physician: [id number] Calderon MDMRN/PID: [id number] PCP:Accession/Order#: [id number] CC Report to:Date of : 1950 Technologist: Jasvir SÁNCHEZender: Cristhian Technologist 2:Admission Status: Inpatient Location Performed: [facility] Diagnosis/ICD: Z01.818-Encounter for other preprocedural examination;I24.8-Cardiac IschemiaProcedure/CPT: 70644 Vein mapping complete-75275 CONCLUSIONS:Left Lower Vein Mapping: The left great [...] mmSSV Prox FibroticSSV Mid FibroticSSV Distal Fibrotic [id number] Olesya Fall MD Final Normal [facility] ARTERIAL BLOOD GASon 018 BASE EXCESS-BLOOD -0.5 mmol/L Normal -2.0 - 3.0 [facility] Comment on above: Performed By: #### E MRAD ####NO LOCATION NEEDED Oxygen ppres (BldA) 79 mm[Hg] Low 85 - 95 [facility] Comment on above: Performed By: #### E MRAD ####NO LOCATION NEEDED PCO2 39 mmHg Normal 38 - 42 [facility] Comment on above: Performed By: #### E MRAD ####NO LOCATION NEEDED pH (Bld) 7.40 [pH] Normal 7.38 - 7.42 [facility] Comment on above: Performed By: #### E MRAD ####NO LOCATION NEEDED RBC Auto #/vol (Bld) 24.2 mmol/L Normal 22.0 - 26.0 [facility] Comment on above: Performed By: #### E MRAD ####NO LOCATION NEEDED SO2 96 % Normal 94 - 100 [facility] Comment on above: Performed By: #### E MRAD ####NO LOCATION NEEDED ARTERIAL H+Hon 03-19-2018 Hematocrit Auto Volume Fraction (Bld) 41.0 % Normal 41.0 - 52.0 [facility] Comment on above: Performed By: #### H HNA1 ####[id number] [place] [address] HGB,CALCULATED 13.9 g/dL Normal 13.5 - 17.5 [facility] Comment on above: Performed By: #### H HNA1 ####[id number] [place] [address] ARTERIAL POTASSIUMon 018 Potassium molar conc 3.7 mmol/L Normal 3.5 - 5.3 [facility] Comment on above: Performed By: #### P OTGA ####[id number] [place] [address] Admission Risk Screen - Adul ton 03-19-2018 [...] Advance Directive typeLiving Will, Durable Power of Therapy Manager for Healthcare Living Will AvailabilityLiving Will not available now Living Will [id number] Durable Power of Therapy Manager AvailabilityDPOA not available now Durable Power of Therapy Manager [id number] Durable Power of Therapy Manager contact (name and number)R[place]ki [place] Screen:Type of AssessmentadmissionModerate Risk Factorspatient care [...] Learning Preferencesskill demonstration Cultural Considerationsnone Developmental Considerationsnone Christian Considerationsnone Learning Assessment (Other Learner): Other learner [...] Spiritual Screen: Are there any cultural, spiritual, denominational practices/values/needs that areimportant for us to knowno C[place] [place] [facility] no Vaccinations:Vaccination - Influenza Vaccination Screen: Is it flu season (between and )Yes Screening for identified contraindications to influenza vaccinationnocontraindicatio ns identified Influenza vaccine indicatedyes Vaccination - Pneumonia [...] 19-Mar-2018 00:38 by Jeannie Shelton (ANDREA) Normal [facility] BN ORTHOPANTOGRAMon 03-19-20 18 BN ORTHOPANTOGRAM Name: DON ELKINS STUDY:BN ORTHOPANTOGRAM; 03/19/2018 12:56 pm INDICATION:Signs/Symptoms: tooth pain, s/p recent root canal, pre op CABG [id number]. COMPARISON:None. ORDERING CLINICIAN:VITO PATINO TECHNIQUE:ORTHOPANTOGRAM FINDINGS:Suspected dental caries right maxillary premolar. No other suspiciouslucency seen. Dental amalgam noted. IMPRESSION: Suspected periapical abscess right maxillary premolar.Electronically signed by: SULMA FLOR MD Normal [facility] CBCon 03-19-2018 Erythrocyte distribution width Auto Ratio (RBC) 13.0 % Normal 11.5 - 14.5 [facility] Comment on above: Performed By: #### C BC ####[id number] [id number] Hematocrit Auto Volume Fraction (Bld) 39.6 % Low 41.0 - 52.0 [facility] Comment on above: Performed By: #### C BC ####[id number] [place] [address] Hemoglobin mass conc (Bld) 13.4 g/dL Low 13.5 - 17.5 [facility] Comment on above: Performed By: #### C BC ####[id number] [id number] MCHC Auto mass conc (RBC) 33.8 g/dL Normal 32.0 - 36.0 [facility] Comment on above: Performed By: #### C BC ####[id number] [place] [address] MCV Auto Entitic volume (RBC) 92 fL Normal 80 - 100 [facility] Comment on above: Performed By: #### C BC ####[id number] [place] [address] Nucleated RBC/100 WBC Ratio (Bld) 0.0 /100 WBC Normal 0.0-0.0 [facility] Comment on above: Performed By: #### C BC ####[id number] [place] [address] Platelets Auto #/vol (Bld) 259 10*3/uL Normal 150 - 450 [facility] Comment on above: Performed By: #### C BC ####[id number] [place] [address] RBC Auto #/vol (Bld) 4.32 x10E12/L Low 4.50 - 5.90 [facility] Comment on above: Performed By: #### C BC ####[id number] [place] [address] WBC Auto #/vol (Bld) 10.8 10*3/uL Normal 4.4 - 11.3 [facility] Comment on above: Performed By: #### C BC ####[id number] [place] [address] Erythrocyte distribution width Auto Ratio (RBC) 13.0 % Normal 11.5 - 14.5 [facility] Comment on above: Performed By: #### C BC ####[id number] [place] [address] Hematocrit Auto Volume Fraction (Bld) 42.4 % Normal 41.0 - 52.0 [facility] Comment on above: Performed By: #### C BC ####[id number] [place] [address] Hemoglobin mass conc (Bld) 14.7 g/dL Normal 13.5 - 17.5 [facility] Comment on above: Performed By: #### C BC ####[id number] [place] [address] MCHC Auto mass conc (RBC) 34.7 g/dL Normal 32.0 - 36.0 [facility] Comment on above: Performed By: #### C BC ####[id number] [place] [address] MCV Auto Entitic volume (RBC) 91 fL Normal 80 - 100 [facility] Comment on above: Performed By: #### C BC ####[id number] [place] [address] Nucleated RBC/100 WBC Ratio (Bld) 0.2 /100 WBC Normal 0.0-0.0 [facility] Comment on above: Performed By: #### C BC ####[id number] [place] [address] Platelets Auto #/vol (Bld) 282 10*3/uL Normal 150 - 450 [facility] Comment on above: Performed By: #### C BC ####[id number] [place] [address] RBC Auto #/vol (Bld) 4.68 x10E12/L Normal 4.50 - 5.90 [facility] Comment on above: Performed By: #### C BC ####[id number] [place] [address] WBC Auto #/vol (Bld) 12.7 10*3/uL High 4.4 - 11.3 [facility] Comment on above: Performed By: #### C BC ####[id number] [place] [address] COAGULATION SCREENon 018 aPTT Coag time (Bld) 31 s Normal 28 - 38 [facility] Comment on above: Result Comment: Note new reference range as of 03/10/2018. THE APTT IS NO LONGER USED FOR MONITORING UNFRACTIONATED HEPARIN THERAPY. FOR MONITORING HEPARIN THERAPY, USE THE HEPARIN ASSAY. Performed By: #### C OAGS ####[id number] [id number] INR Coag RelTime (PPP) 1.4 {INR} High 0.9 - 1.1 [facility] Comment on above: Performed By: #### C OAGS ####[id number] [id number] Prothrombin time (PT) Coag time (PPP) 16.1 s High 9.7 - 12.7 [facility] Comment on above: Result Comment: Note new reference range as of 03/10/2018. Performed By: #### C OAGS ####[id number] [id number] COOX PANEL, ARTERIALon 03-19 DEOXY HGB 3.7 % Normal 0.0 - 5.0 [facility] Comment on above: Performed By: #### C OOXA ####[id number] [place] [address] Hemoglobin mass conc (Bld) 1.1 % Normal [facility] Comment on above: Result Comment: REF VALUESNONSMOKERS 0.5-1.5%SMOKERS 0.5-10.0% Performed By: #### C OOXA ####[id number] [place] [address] Hemoglobin mass conc (Bld) 14.9 g/dL Normal 13.5 - 17.5 [facility] Comment on above: Performed By: #### C OOXA ####[id number] [id number] MET HGB 1.2 % Normal 0.0 - 1.5 [facility] Comment on above: Performed By: #### C OOXA ####[id number] [place] [address] OXY HGB 93.9 % Low 94.0 - 98.0 [facility] Comment on above: Performed By: #### C OOXA ####[id number] [place] [address] Clinical Event Note-STS Scor e - Cardiac Surgeryon 03-19-2018 Clinical Event Note-STS Score - Cardiac Surgery Event:Topic: STS Score - Cardiac SurgeryDetails:Procedure: CAB OnlyRisk of Mortality: 1.006%Morbidity or Mortality: 13.941%Long Length of Stay: 4.79%Short Length of Stay: 47.443%Permanent Stroke: 0.962%Prolonged Ventilation: 8.167%DSW Infection: 0.651%Renal Failure: 5.562%Reoperation: 4.472% Provider / Team Contact Information:Provider/Team Contact Info-Pager Number: [phone] cardiac surgery Electronic Signatures:Herminia Kern (PAC) (Signed 19-Mar-2018 18:40)Authored: Event, Provider / Team Contact Information Last Updated: 19-Mar-2018 18:40 by Herminia Kern (PAC) Normal [facility] Consult-Cardiac Surgeryon Consult-Cardiac Surgery Service:Service: Cardiac Surgery Consult:Consult requested by (Attending Name): Dr. Mor Woo: CAD; CABG eval History of Present Illness:Admission Reason: Transferred for CABG evalHPI:PCP: Sal Hernandez ([facility]) - Levi Sinha: [place] 67 yo WM with no known history of CAD, who has a past medical history of HTN,HLD, T2DM, Colbert's disease, hypothyroidism, COPD, AKASH on CPAP, prostate spring/p prostatectomy in 2011, and psoriasis [facility] for CABG eval. Patient reports 2 month h/o intermittent exertional left sided chest painlasting less than 30 min, relieved with rest, with no other associatedsymptoms. He woke up 03/16 at 1AM with chest pressure associated with dyspnea,and his took him to [facility] where he was diagnosed withbilateral PEs, started on heparin gtt, then transferred to [facility]. There, hewas found to have a trop [...] He reports afamily history significant for [place], [place], CHF, HTN, DM and DLD. He quit oclvvdy98 years ago. Has an occasional beer, and denies any drug use. 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 Cardiac surgery consulted 03/19 for CABG eval. Pt currently asymptomatic andhemodynamically stable. 12 points ROS obtained and negative unless otherwise stated above Outside Hospital cardiac work up:CTA at [place]:Pulmonary emboli involving the bilateral lobar segmental, and severalsubsegmental branches (RUL, RML, RLL, FIDEL, LLL). LHC/cors at [facility] 03/16/18: by Levi PisanoLM: 10-20%LAD prox: 30%LAD mid: 95%Diag 3rd: 99%RCA: 85 %PLV: 50%Circ: 95% TTE at [facility] 03/15/18:EF 60-65%Mild concentric LVHLV wall motion is normalMild LA dilationpseudonormalized LV relaxation, which is associated with grade II/IV or mild tomoderate diastolic dysfunctionMild aortic regurgitation PMH: HTN, HLD, T2DM, Brigida's disease, hypothyroidism, COPD, AKASH on CPAP,prostate ca s/p prostatectomy in 2012, psoriasis, remote hepatitis B, priorGERD, lumbar Degenerative disk disease, arthritis, kidney stones (current,small), cataract, plantar fasciitis PSH: prostatectomy 2011, R cataract surgery, cholecystectomy, appendectomy,sinus surgery, vasectomy, bilat carpal tunnel release surgery, ganglion cystremoval from hands, cystoscopy 2 weeks ago for microscopic hematuria, rootcanal 2 weeks ago. FHx: CAD/[place], cancer, DM, HTN, migraines, CVA Social: former [...] No Known Allergies: Objective: Objective Information: T [id number]/839 6%Date/Time03/19 3: 3: 3: 3: 3:42Range(36.6C - 36.6C ) (79 - 79 ) (20 - 20 ) (149 - 173 )/ (83 - 92 ) (96%- 97% ) Pain with Activity reported at 03/19 0:25: 0Pain at Rest reported at 03/19 0:25: 0 Udjchms18/1 0:14: Weight in kg (Weight (kg)) 109.311/1 0:14: Weight in lbs ((lbs)) 40060/1 0:14: BMI (kg/m2) (BMI (kg/m2)) 36.646 Physical [...] R>L psoriasis plaques Medications: Medications: Continuous Medications ----1. Heparin 25,000 units/ D5W 250 mL Infusion: 1000 units/hr IntraVenous Scheduled Medications ----1. Aspirin Chewable: 81 mg Oral Daily2. Atorvastatin: 40 mg Oral Daily3. Carvedilol: 6.25 mg Oral 2 Times a Day4. Citalopram: 20 mg Oral Daily5. Docusate 50 mg - Senna 8.6 m tablet(s) Oral 2 Times a Day6. Fludrocortisone: 0.1 mg Oral Daily7. Heparin (Repeat Bolus) Injectable: 4000 unit(s) IntraVenous Push Every 6Fyeqg3. Hydrocortisone: 20 mg Oral 2 Times a Day9. Insulin Lispro Mild Corrective Scale: unit(s) SubCutaneous 3 Times a DayBefore Meals10. Levothyroxine: 150 microgram(s) Oral Daily11. Pantoprazole: 40 mg Oral Daily12. Polyethylene Glycol: 17 gram(s) Oral Daily13. rOPINIRole: 2 mg Oral 3 Times a Day PRN Medications ----1. Dextrose 50% in Water Injectable: 25 gram(s) IntraVenous Push Every 56Kuwrzww7. Glucagon Injectable: 1 mg IntraMuscular Every 15 [...] 1 View [Mar 19 2018 9:20AM] [facility]IDE [facility] [place]:Pulmonary emboli involving the bilateral lobar segmental, and severalsubsegmental branches (RUL, RML, RLL, FIDEL, LLL). LHC/cors at [facility] 03/16/18: by Levi PisanoLM: 10-20%LAD prox: 30%LAD mid: 95%Diag 3rd: 99%RCA: 85 %PLV: 50%Circ: 95% TTE at [facility] 03/15/18:EF 60-65%Mild concentric LVHLV wall motion is normalMild LA dilationpseudonormalized LV relaxation, which is associated with grade II/IV or mild tomoderate diastolic dysfunctionMild aortic regurgitation Assessment:67 yo WM with no priorhistory of CAD, who has a past medical history of HTN,HLD, T2DM, Colbert's disease, hypothyroidism, COPD, AKASH on CPAP, prostate spring/p prostatectomy in 2011, and psoriasis who [facility]/18 for CABG eval. Ptpresented to [facility] with chest pressure and dyspnea. He as found to havebilat PEs, was started on Heparin gtt, and transferred to [facility]. He wasfound to have a troponin leak at 2.25. Cardiology was consulted and the patientwas diagnosed with ACS, NSTEMI. He underwent a TTE and cath. He had normal EF,mild AI, and triple vessel CAD so was transferred to [facility] for CABG eval. Cardiac surgery consulted 03/19 [...] for 81mg aspirin- Shut heparin drip off sponge buffer to OR- Please start or continue beta danica; If unable to tolerate beta blockerplease document reason- please consult Endocrine d/t Colbert's disease- please consult Pulmonary for PE workup Thank you for the consultation. Please call [phone] with any questions or changesin patient condition. Signature/Cosignature/Attest ation:Provider/Team Contact Info-Pager Numbercardiac surgery [phone] Electronic Signatures:Mary Munroe (LITHOGRAPH PRESS OPERATOR TINWARE-CUSTOMER SERVICE LEADER) (Signed 19-Mar-2018 18:21)Authored: Service, History of Present Illness, Review Family/Social Historyand ROS, Objective, Assessment/Recommendations,S ignature/Cosignature/AttestKyle Monroy (LITHOGRAPH PRESS OPERATOR TINWARE-CUSTOMER SERVICE LEADER) (Signed 19-Mar-2018 08:17)Authored: Service, Allergies, Objective, Assessment/Recommendations Last Updated: 19-Mar-2018 18:21 by Mary Munroe (LITHOGRAPH PRESS OPERATOR [employer]-[facility]) Normal [facility] DRUG SCREEN,PAIN MANAGEMENT W/ REFLEXon 03-19-2018 AMPHETAMINE SCREEN,U Negative Normal NEGATIVE [facility] Comment on above: Result Comment: CUTO FF LEVEL: 500 NG/ML Cross-reactivity has been reported with high concentrations of the following drugs: buproprion, chloroquine, chlorpromazine, ephedrine, mephentermine, fenfluramine, phentermine, phenylpropanolamine, pseudoephedrine, and propranolol. Performed By: #### D SPMR ####[id number] [place] [address] BARBITURATES SCREEN,U Negative Normal NEGATIVE [facility] Comment on above: Result Comment: CUTO FF LEVEL: 200 NG/ML Performed By: #### D SPMR ####[id number] [place] [address] BENZODIAZEPINES SCREEN,U Negative Normal NEGATIVE [facility] Comment on above: Result Comment: CUTO FF LEVEL: 200 NG/MLBenzodiazepine Confirmatory testing has been sent to a reference laboratoryand will be reported separately. Although the benzodiazepine screening testprovides rapid results; the confirmatory test provide the most sensitive andspecific assessment of drug presence or absence in the urine. Performed By: #### D SPMR ####[id number] [place] [address] CANNABINOIDS SCREEN,U Negative Normal NEGATIVE [facility] Comment on above: Result Comment: CUTO FF LEVEL: 50 NG/ML Performed By: #### D SPMR ####[id number] [id number] COCAINE METABOLITE SCREEN,U Negative Normal NEGATIVE [facility] Comment on above: Result Comment: CUTO FF LEVEL: 150 NG/ML Performed By: #### D SPMR ####[id number] [id number] DRUG SCREEN COMMENT. SEE BELOW Normal [facility] Comment on above: Result Comment: Drug screen [...] laboratory medicaldirectors. Performed By: #### D SPMR ####[id number] [place] [address] METHADONE SCREEN,U Negative Normal NEGATIVE [facility] Comment on above: Result Comment: CUTO FF LEVEL: 150 NG/ML The metabolite T-qcbii-nlwkztrekvedwa (LAAM) is not detected by this method in concentrations that would be found in the urine of patients on LAAM therapy. Performed By: #### D SPMR ####[id number] [place] [address] OPIATES SCREEN,U Negative Normal NEGATIVE [facility] Comment on above: Result Comment: CUTO FF [...] the urine. Performed By: #### D SPMR ####[id number] [place] [address] PCP SCREEN,U Negative Normal NEGATIVE [facility] Comment on above: Result Comment: CUTO FF LEVEL: 25 NG/ML Cross-reactivity has been reported with dextromethorphan. Performed By: #### D SPMR ####[id number] [place] [address] Daily Progress Note-Yann chavez 03-19-2018 Protein mass conc Service: Cardiology Subjective Data:DON ELKINS is a 67 year old Male who is Hospital Day # 2. Additional Information:Received from [facility] with PE and need for CABG eval, hypertensive - Heparin gtt- Stop Metoprolol- Start Carvedilol- Plan for OR with Dr. Gaston early next week Objective Data: Objective Information:T MGSMJlQ3Smfjg23.53747107/879 7%Date/Time03/19 13: 13: 13: 13: 13:27Range(36.6C - 37C ) (79 - 83 ) (16 - 20 ) (149 - 173 )/ (83 - 92 ) (95% -97% )Highest temp of 37 C was recorded at 03/19 8:29 Pain with Activity reported at 03/19 7:19: 0Pain at Rest reported at 03/19 7:19: 0 Nencewq64/1 0:14: Weight in kg (Weight (kg)) 109.311/1 0:14: Weight in lbs ((lbs)) 40345/1 0:14: BMI (kg/m2) (BMI (kg/m2)) 36.646 Physical Exam: Constitutional: Resting in bed, NADHead/Neck: No JVDRespiratory/Thorax: CTABCardiovascular: RRR, S1 R5Kesweywicotffsjh: soft, NT/NDExtremities: Right wrist site of catheterization intact, normal pulse. Noperipheral edemaNeurological: alert and oriented h0Wjswwbhglmrcn: Appropriate mood and behaviorSkin: psoriasis plaque over elbows and knees Medication: Medications: Continuous Medications ---- 1. Heparin 25,000 units/ D5W 250 mL Infusion: 1000 units/hr IntraVenous Scheduled Medications ---- 1. Aspirin Chewable: 81 mg Oral Daily2. Atorvastatin: 40 mg Oral Daily3. Carvedilol: 6.25 mg Oral 2 Times a Day4. Citalopram: 20 mg Oral Daily5. Docusate 50 mg - Senna 8.6 m tablet(s) Oral 2 Times a Day6. Fludrocortisone: 0.1 mg Oral Daily7. Heparin (Repeat Bolus) Injectable: 4000 unit(s) IntraVenous Push Every 4Jyyse9. Hydrocortisone: 20 mg Oral 2 Times a Day9. Insulin Lispro Mild Corrective Scale: unit(s) SubCutaneous 3 Times a DayBefore Meals10. Levothyroxine: 150 microgram(s) Oral Daily11. Mupirocin 2%: 0.5 application(s) Each Nostril 2 Times a Day12. Pantoprazole: 40 mg Oral Daily13. Polyethylene Glycol: 17 gram(s) Oral Daily14. rOPINIRole: 2 mg Oral 3 Times a Day PRN Medications ---- 1. Dextrose 50% in Water Injectable: 25 gram(s) IntraVenous Push Every 60Nnzrghy6. Glucagon Injectable: 1 mg IntraMuscular Every 15 [...] -0.5Bicarbonate, Calculated, Arterial 24.2 Glucose_POCT Trending View [id number]-Ytq-2229 13:58:00 19-Mar-2018 08:27:00Glucose-SPMB126 H 172 H Drug Screen, Pain Management [...] buproprion, chloroquine, chlorpromazine, ephedrine, mephentermine, fenfluramine, phentermine, phenylpropanolamineBarbitura te Screen, Urine PRESUMPTIVE NEGATIVE PRESUMPTIVE NEGATIVE CUTOFF [...] NEGATIVE CUTOFF LEVEL: 150 NG/ML The metabolite C-rrbkr-cgdkhjpfhsujbd (LAAM) is not detected by this method [...] Urine YELLOW Reference Range: STRAW,YELLOWAppearance, Urine CLEARSpecific [place], Urine 1.013pH, Urine 6.0Protein, Urine NEGATIVEGlucose, Urine [...] A4C: 17.4cm2LA Area A2C: 14.2 cm2LA [place] A4C: 6.0 cmLA [place] A2C: 4.7 cmLA Volume Index: 15.2 ml/m2RA VOLUME BY A/L METHOD: Normal Ranges:RA Area A4C: 12.8 ab0N-NZDL MEASUREMENTS: Normal Ranges:Ao Root: 2.90 cm (2.0-3.7cm)LAs: [...] T2DM, Addisson's, GERD, prostate ca s/p prostatectomy [id number], hypothyroidism, psoriasis, and most recently diagnosed with a PE andmultivessel CAD transferred to medicine at [facility] from [facility] on03/18 for CABG eval. PE- unprovoked [...] on PPICode status: Full Electronic Signatures:Vito Patino (LITHOGRAPH PRESS OPERATOR TINWARE-CUSTOMER SERVICE LEADER) (Signed 19-Mar-2018 15:16)Authored: Service, Subjective Data, Objective Data, Assessment and Plan,Signature/Cosignature/A ttestationMor Calderon) (Signed 19-Mar-2018 15:57)Co-Signer: Service, Subjective Data, Objective Data, Assessment and Plan,Signature/Cosignature/A ttestation Last Updated: 19-Mar-2018 15:57 by Mor Calderon) [facility] Discharge Planning Noteon Discharge Planning Note Discharge Needs Assessment: Discharge Planning Assessment [id number] Discharge Planning Assessment Completed byClarisa Villalobos RN Care [phone] Readmission Within the Last 30 Daysno previous admission in last 30 days Primary Care PhysicianUnknown PCP at [facility] Patient Learning: Factors that Impact Ability to Learnlearning disabilities, visualproblems(1) Other Factors: Functional Screen: In the recent/past 2-4 weeks, patient or family havenoticedno issues that require a rehabilitation consult at this time(2) Discharge Planning:Discharge Plannin03/19/18 0648: Patient admitted to [facility] with 4x vesselblockage and CABG consult. recent partial root canal begun this past Fridaybut no permanent cap placed yet. Patient lives at home with and pets. Nolines or drips on admission, will restart heparin at 0900 this morning, patientwas given 10mg Eliquis at [facility] at 9pm 03/18/18. no pain onadmission. Jeannie Shelton RN 03-19-18 1040 Plunger Machine Operator Note: Met with patient to discuss [...] PCP, cannot recall name. Preferred pharmacy is [facility].Preferred pharmacy added to outpatient medication review. Patient states nodifficulty obtaining or paying for medications. Patient is not medically readyfor discharge. cis coordinator will follow. Clarisa Villalobos RN Care [phone] 03-19-18 1530 Plunger Machine Operator Note: Patient discussed during interdisciplinaryrounds. Plan for OR next week. cis coordinator will follow. Clarisa Villalobos RNCare Coordinator [phone] 03-24-18 1435 Plunger Machine Operator Note: Patient discussed during interdisciplinaryrounds. Plan for OR friday. cis coordinator will follow. Clarisa Villalobos RNCare Coordinator [phone] 03-27-18 1500 Plunger Machine Operator Note: Patient discussed during interdisciplinaryrounds. Plan for CABG friday. Clarisa Villalobos RN Plunger Machine Operator [phone] Plunger Machine Operator Note: 04/02/2018. Met with patient to discuss dischargeplanning. Patient is a 67 year old male from home s/p cardiac surgery.Patient will require home care at discharge. Patient provided a [employer] after heart Surgery booklet and a home acre providers list. Willcontinue to monitor patient for all home going needs. Mary Elder RN CC Plunger Machine Operator Note 04/07/18Met with patient to finalize [...] has all scripts andbelongings. [facility]. Mary Smith RN. Final Disposition/Discharge:Dispos ition/Discharge Information: Discharge/Transfer Information: Discharge/Transfer Date/[id number] 15:33 Discharged Accompanied Byspouse; family member Discharge Modewheelchair Transportation Methodprivate car Valuables/Medications/Belong ings Returnedyes Belongings Commentpt has all belongings [facility] Electronic Signatures:Jeannie Shelton (RN) (Signed [...] Screen - Adult 03/19/2018 12:25 AM Normal [facility] EMR ADDONon 03-19-2018 ADDON CONFIRMATION REQUEST REC'D Normal [facility] Comment on above: Performed By: #### C BC ####[id number] [place] [address] ADDON CONFIRMATION REQUEST REC'D Normal [facility] Comment on above: Performed By: #### E MRAD ####NO LOCATION NEEDED ADDON CONFIRMATION REQUEST REC'D Normal [facility] Comment on above: Performed By: #### E MRAD ####NO LOCATION NEEDED GLUCOSE-POCTon 03-19-2018 Glucose mass conc 308 mg/dL High 74 - 99 [facility] Comment on above: Performed By: #### C BC ####[id number] [place] [address] Glucose mass conc 226 mg/dL High 74 - 99 [facility] Comment on above: Performed By: #### C BC ####[id number] [place] [address] Glucose mass conc 175 mg/dL High 74 - 99 [facility] Comment on above: Performed By: #### G BECKY ####[id number] [place] [address] Glucose mass conc 172 mg/dL High 74 - 99 [facility] Comment on above: Performed By: #### G BECKY ####[id number] [place] [address] HEMOGLOBIN A1Con 03-19-2018 Glucose mass conc 180 mg/dL Normal [facility] Comment on above: Performed By: #### E MRAD ####NO LOCATION NEEDED Hemoglobin A1c/Hemoglobin.tota l mass fraction (Bld) 7.9 % Normal [facility] Comment on above: Result Comment: Diag nosis of Diabetes-Adults Non-Diabetic: < or = 5.6% Increased risk for developing diabetes: 5.7-6.4% Diagnostic of diabetes: > or = 6.5%. Monitoring of Diabetes Age (y) Therapeutic Goal (%) Adults: >18 <7.0 Pediatrics: 13-18 <7.5 7-12 <8.0 0- 6 7.5-8.5 [employer]. Diabetes Care 33(S1), May 2009. Performed By: #### E MRAD ####NO LOCATION NEEDED HEPARIN ASSAY,UFHon 03-19-20 18 HEPARIN ASSAY,UFH 0.4 IU/mL Normal [facility] Comment on above: Result Comment: The therapeutic reference range for UFH may be either 0.3-0.6 IU/mL or 0.3-0.7 IU/mL based on the clinical setting for anticoagulant therapy and the associated nomogram used. For heparin dosing guidelines based on clinical scenario and Heparin Assay results, please refer to local Pharmacy and the [facility] Guidelines for Anticoagulation therapy available on the [facility] intranet at:[email or web address]_ ospitals_Guidelines_for_Anticoagu.aspx Performed By: #### E MRAD ####NO LOCATION NEEDED HEPARIN ASSAY,UFH 0.6 IU/mL Normal [facility] Comment on above: Result Comment: The therapeutic reference range for UFH may be either 0.3-0.6 IU/mL or 0.3-0.7 IU/mL based on the clinical setting for anticoagulant therapy and the associated nomogram used. For heparin dosing guidelines based on clinical scenario and Heparin Assay results, please refer to local Pharmacy and the [facility] Guidelines for Anticoagulation therapy available on the [facility] intranet at:[email or web address]_ ospitals_Guidelines_for_Anticoagu.aspx Performed By: #### E MRAHenrietta ####NO LOCATION NEEDED HEPATIC FUNCTION PANELon ALP enzyme act/vol 50 U/L Normal 33 - 136 [facility] Comment on above: Performed By: #### C BC ####[id number] [place] [address] ALT enzyme act/vol 103 U/L High 10 - 52 [facility] Comment on above: Result Comment: Vivien ents treated with Sulfasalazine may generate falsely decreased results for ALT. Performed By: #### C BC ####[id number] [place] [address] AST enzyme act/vol 75 U/L High 9 - 39 [facility] Comment on above: Performed By: #### C BC ####[id number] [place] [address] Bilirubin mass conc 0.9 mg/dL Normal 0.0 - 1.2 [facility] Comment on above: Performed By: #### C BC ####[id number] [place] [address] Bilirubin.direct mass conc 0.2 mg/dL Normal 0.0 - 0.3 [facility] Comment on above: Performed By: #### C BC ####[id number] [place] [address] Protein mass conc 6.6 g/dL Normal 6.4 - 8.2 [facility] Comment on above: Performed By: #### C BC ####[id number] [place] [address] Albumin mass conc 4.1 g/dL Normal 3.4 - 5.0 [facility] Comment on above: Performed By: #### C BC ####[id number] [place] [address] Performed By: #### R ENAL ####[id number] [place] [address] History and Physical-( Night float admission note )on 03-19-2018 History and Physical-( Nightfloat admission note ) History of Present Illness:Medical Student:Medical Student: Nightfloat admission note Admission Reason: Transfer from [facility] for CABG evalHPI:CC:Transfered from CABG eval HPI:Mr. Elkins is a 67 yo M with HTN, DLD, T2DM, Addisson's, GERD, prostate ca s/pprostatectomy in 2011, hypothyroidism, psoriasis transferred to medicine at [facility] from [facility] on 03/18 for CABG eval Patient reports 2 month h/o intermittent exertional left sided chest painlasting less than 30 min, relieved with rest, with no other associatedsymptoms. He woke up 03/16 at 1AM with chest pressure associated with dyspnea,and his took him to [facility] where he was diagnosed with a PE,started on heparin gtt, then transferred to [facility]. There, hewas found to have a [...] He reports afamily history significant for [place], [place], CHF, HTN, DM and DLD. He quit [id number] years ago. Has an occasional beer, and denies any drug use. 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 12 points ROS obtained and negative unless otherwise stated above Prior cardiac work up. CTA at [place]:Pulmonary emboli involving the bilateral lobar segmental, and severalsubsegmental branches (RUL, RML, RLL, FIDEL, LLL). LHC/cors at [facility]:LAD prox: 30%LAD mid: 95%Diag 3rd: 99%RCA: 85 %PLV: 50%Circ: 95% TTE at [facility]:EF 60-65%Mild LA dialtionNo valvular abnormalities PMH; as [...] a day (at bedtime). Objective: Objective Information: Elsie [id number] 7%Date/Time03/18 23: 23: 23: 0: 23:30Range(36.6C - 36.6C ) (79 - 79 ) (20 - 20 ) (173 - 173 )/ (92 - 92 ) (97%- 97% ) Tmyvgqb55/1 0:14: Weight in kg (Weight (kg)) 109.311/1 0:14: Weight in lbs ((lbs)) 55777/1 0:14: BMI (kg/m2) (BMI (kg/m2)) 36.646 Physical [...] elbows and knees Medications: Medications: Continuous Medications ----No continuous medications are active Scheduled Medications ---- 1. Aspirin Chewable: 81 mg Oral Daily2. Citalopram: 20 mg Oral Daily3. Fludrocortisone: 0.1 mg Oral Daily4. Heparin SubCutaneous: 5000 unit(s) SubCutaneous Every 8 Hours5. Hydrocortisone: 20 mg Oral 2 Times a Day6. Insulin Lispro Mild Corrective Scale: unit(s) SubCutaneous Every 4 Hours 7. Levothyroxine: 150 microgram(s) Oral Daily8. Pantoprazole: 40 mg Oral Daily PRN Medications ---- 1. Dextrose 50% in Water Injectable: 25 gram(s) IntraVenous Push Every 12Rjhofbj1. Glucagon Injectable: 1 mg IntraMuscular Every 15 Minutes Recent Lab Results: Results:pending Radiology Results: Results:pending Assessment and Plan:Assessment:67 yo M with HTN, DLD, T2DM, Addisson's, GERD, prostate ca s/p prostatectomy [id number], hypothyroidism, psoriasis, and most recently diagnosed with a PE andmultivessel CAD transferred to medicine at [facility] from [facility] on03/18 for CABG eval. Acute problems: [...] am ON ppx: on PPICode status: Full Signatures/Attestation/Certi fication:Attending AttestationI saw and evaluated the patient. I [...] patient (as noted in the above attestation) [id number] Provider Inpatient Certification StatementI certify this patientsneed for inpatient care based on the above documentation including; the orderto admit as inpatient, the anticipated length of stay, diagnosis, problem listand plan of care, and discharge plan. Electronic Signatures:Mor Calderon) (Signed 19-Mar-2018 15:57)Authored: Signatures/Attestation/Certi ficationCo-Signer: Comorbidities, Signatures/Attestation/Certi leoationTomeka Shrestha (PAC) (Signed 19-Mar-2018 07:13)Authored: Comorbidities, Signatures/Attestation/Certi leoationJim Titus (Resident)) (Signed 19-Mar-2018 01:07)Authored: History of Present Illness, Allergies, Medications Prior toAdmission, Objective, Assessment and Plan Last Updated: 19-Mar-2018 15:57 by Mor Calderon) Normal [facility] LIPID PANEL (CORONARY RISK 2 )on 03-19-2018 Cholesterol in HDL mass conc 44.5 mg/dL Normal [facility] Comment on above: Result Comment: . AG E VERY LOW LOW NORMAL HIGH 0-19 Y < 35 < 40 40-45 ---- 20-24 Y ---- < 40 >45 ---- >24 Y ---- < 40 40-60 >60. Performed By: #### L IPID ####[id number] [place] [address] Cholesterol in LDL mass conc 82 mg/dL Normal 0 - 99 [facility] Comment on above: Result Comment: . NE AR BORD AGE DESIRABLE OPTIMAL HIGH HIGH VERY HIGH 0-19 Y 0 - 109 --- 110-129 >/= 130 ---- 20-24 Y 0 - 119 --- 120-159 >/= 160 ---- >24 Y 0 - 99 100-129 130-159 160-189 >/=190. Performed By: #### L IPID ####[id number] [place] [address] Cholesterol in VLDL mass conc 28 mg/dL Normal 0 - 40 [facility] Comment on above: Performed By: #### L IPID ####[id number] [place] [address] Cholesterol mass conc 155 mg/dL Normal 0 - 199 [facility] Comment on above: Result Comment: . AG [...] Metamizole dosing. Performed By: #### L IPID ####[id number] [place] [address] Cholesterol.total/C holesterol in HDL mass ratio 3.5 {ratio} Normal [facility] Comment on above: Result Comment: REF VALUESDESIRABLE < 3.4HIGH RISK > 5.0 Performed By: #### L IPID ####[id number] [place] [address] Triglyceride mass conc 141 mg/dL Normal 0 - 149 [facility] Comment on above: Result Comment: . AG [...] Metamizole dosing. Performed By: #### L IPID ####[id number] [place] [address] Patient Profile - Adult v2on 03-19-2018 Protein mass conc Profile:Initial Info :How to be AddressedLarrySpoken Language PreferredEnglishSource of InformationpatientAre you currently using the Personal Electronic Health Record or [facility] MEDICAL CENTERyetated Reason for Admissionheart blocks and blood clot in my lungsArrived FromhospitalPatient Belongingsremains with patientPatient Belongings Remaining with Patientcell phone/electronics; clothing;vision aids; medical anthropologist; medication(s)Medications Brought to HospitalyesMedication Dispositionsent home with family General Health:Weight in kg109.3 kilogram(s)Weight in wpl346 pound(s)Height in feet5 feetHeight in inches8 inch(es)Height [...] for youAddisons diseaseRecent Change in Mood/Behaviorrecent memoryMajor Change/Loss/Stressor/Fearsde nies Substance:Current or Former Substance Use never: Cigarette/Tobacco, e-Cigarette/Vaping,Alcohol, Street Drugs Health Mgmt:Symptoms/Conditions Managed at HomeimmunologicalImmunologic al Managementmanaged Relationship/Environ:Primary Source of Support/Comfortsignificant otherLives Withsignificant otherLiving ArrangementshouseResource/En vironmental ConcernsnoneAnticipated Transition [facility] rehabilitation facilityServices [facility]ticipated at [facility]; rehabilitation servicesSignificant IndicatorsComplete Information Review: Allergies, Home Meds and Significant Events have been Reviewed and Verifiedwith Patient/Familyno ALLERGY, INTOLERANCE, ADVERSE EVENT: Allergies: No Known Allergies: Active Electronic Signatures:Jeannie Shelton (RN) (Signed 19-Mar-2018 00:25)Authored: Profile, Additional Information Last Updated: 19-Mar-2018 00:25 by Jeannie Shelton (ANDREA) Normal [facility] RENAL FUNCTION PANELon 03-19 Albumin mass conc 3.9 g/dL Normal 3.4 - 5.0 [facility] Comment on above: Performed By: #### C BC ####[id number] [place] [address] Anion gap 3 molar conc 16 mmol/L Normal 10 - 20 [facility] Comment on above: Performed By: #### C BC ####[id number] [place] [address] Calcium mass conc 9.4 mg/dL Normal 8.6 - 10.6 [facility] Comment on above: Performed By: #### C BC ####[id number] [place] [address] Chloride molar conc 102 mmol/L Normal 98 - 107 [facility] Comment on above: Performed By: #### C BC ####[id number] [place] [address] Performed By: #### R ENAL ####[id number] [place] [address] Creatinine mass conc 1.36 mg/dL High 0.50 - 1.30 [facility] Comment on above: Performed By: #### C BC ####[id number] [place] [address] GFR- AM. 63 mL/min/1.73m2 Normal >60 [facility] Comment on above: Result Comment: CALC ULATIONS OF ESTIMATED GFR ARE PERFORMED USING THE MDRD STUDY EQUATION FOR THE IDMS-TRACEABLE CREATININE METHODS. CLIN CHEM 2007;53:766-72 Performed By: #### C BC ####[id number] [place] [address] GFR-NON AM. 52 mL/min/1.73m2 Abnormal >60 [facility] Comment on above: Performed By: #### C BC ####[id number] [place] [address] Glucose mass conc 229 mg/dL High 74 - 99 [facility] Comment on above: Performed By: #### C BC ####[id number] [place] [address] HCO3 molar conc (Bld) 23 mmol/L Normal 21 - 32 [facility] Comment on above: Performed By: #### C BC ####[id number] [place] [address] Performed By: #### R ENAL ####[id number] [place] [address] Phosphate mass conc 3.6 mg/dL Normal 2.5 - 4.9 [facility] Comment on above: Result Comment: The performance characteristics of phosphorus testing in heparinized plasma have been validated by the individual laboratory site where testing is performed. Testing on heparinized plasma is not approved by the FDA; however, such approval is not necessary. Performed By: #### C BC ####[id number] [place] [address] Potassium molar conc 3.9 mmol/L Normal 3.5 - 5.3 [facility] Comment on above: Performed By: #### C BC ####[id number] [place] [address] Sodium molar conc 137 mmol/L Normal 136 - 145 [facility] Comment on above: Performed By: #### C BC ####[id number] [place] [address] Urea nitrogen mass conc 25 mg/dL High 6 - 23 [facility] Comment on above: Performed By: #### C BC ####[id number] [place] [address] Anion gap 3 molar conc 17 mmol/L Normal 10 - 20 [facility] Comment on above: Performed By: #### R ENAL ####[id number] [place] [address] Calcium mass conc 9.2 mg/dL Normal 8.6 - 10.6 [facility] Comment on above: Performed By: #### R ENAL ####[id number] [place] [address] Creatinine mass conc 1.42 mg/dL High 0.50 - 1.30 [facility] Comment on above: Performed By: #### R ENAL ####[id number] [place] [address] GFR- AM. 61 mL/min/1.73m2 Normal >60 [facility] Comment on above: Result Comment: CALC ULATIONS OF ESTIMATED GFR ARE PERFORMED USING THE MDRD STUDY EQUATION FOR THE IDMS-TRACEABLE CREATININE METHODS. CLIN CHEM 2007;53:766-72 Performed By: #### R ENAL ####[id number] [place] [address] GFR-NON AM. 50 mL/min/1.73m2 Abnormal >60 [facility] Comment on above: Performed By: #### R ENAL ####[id number] [place] [address] Glucose mass conc 206 mg/dL High 74 - 99 [facility] Comment on above: Performed By: #### R ENAL ####[id number] [place] [address] Phosphate mass conc 3.5 mg/dL Normal 2.5 - 4.9 [facility] Comment on above: Result Comment: The performance characteristics of phosphorus testing in heparinized plasma have been validated by the individual laboratory site where testing is performed. Testing on heparinized plasma is not approved by the FDA; however, such approval is not necessary. Performed By: #### R ENAL ####[id number] [place] [address] Potassium molar conc 4.1 mmol/L Normal 3.5 - 5.3 [facility] Comment on above: Performed By: #### R ENAL ####[id number] [place] [address] Sodium molar conc 138 mmol/L Normal 136 - 145 [facility] Comment on above: Performed By: #### R ENAL ####[id number] [place] [address] Urea nitrogen mass conc 23 mg/dL Normal 6 - 23 [facility] Comment on above: Performed By: #### R ENAL ####[id number] [place] [address] REQUEST-LEUKOREDUCED RED HERI LSon 03-19-2018 REQUEST-LEUKOREDUCE D RED CELLS ORDER RECD Normal [facility] Comment on above: Performed By: #### E MRAD ####NO LOCATION NEEDED STAPH/MRSA SCREENon 03-19-20 STAPH/MRSA SCREEN PATIENT: DON ELKINS LOCATION: [address]#: [id number] : 50 AGE: SEX: M ORDERED BY: FESTUS PERKINS: ANTERIOR NARES COLLECTED: 03/19/18 09:34ANTIBIOTICS AT JIMENA.: RECEIVED : 03/19/18 11:09SITE: NARES R E S U L T S STAPH/MRSA SCREEN FINAL 03/20/18 12:15 NO Staphylococcus aureus ISOLATED. Normal [facility] Comment on above: Performed By: #### C OAGS ####[id number] [place] [address] TH CHEST 1 VIEWon 03-19-2018 TH CHEST 1 VIEW Name: DON ELKINS STUDY:TH CHEST 1 VIEW; 03/19/2018 6:21 am INDICATION:Signs/Symptoms: admisison Xray. COMPARISON:None ORDERING CLINICIAN:JIM TITUS FINDINGS:The cardiomediastinal silhouette is within normal limits. There is no focal consolidation, edema or pneumothorax. No sizeablepleural effusion. No acute osseous abnormality. IMPRESSION:1. No radiographic evidence of acute cardiopulmonary process. Electronically signed by: STANISLAV RADFORD MD Normal [facility] TH CHEST 2 VIEW PA AND LATon 03-19-2018 TH CHEST 2 VIEW PA AND LAT Name: DON ELKINS STUDY:CHEST 2 VIEW PA AND LAT; 03/19/2018 12:56 pm INDICATION:Signs/Symptoms: preop cabg ROOM [id number]. COMPARISON:Chest radiograph from 03/19/2018 ORDERING CLINICIAN:KYLE PERKINS FINDINGS:The cardiomediastinal silhouette is stable and within normal limits. There is no focal consolidation, edema or pneumothorax. No sizeablepleural effusion. No acute osseous abnormality. IMPRESSION:1. No radiographic evidence of acute cardiopulmonary process. Electronically signed by: STANISLAV RADFORD MD Normal [facility] TSHon 03-19-2018 Thyrotropin Qn 2.51 m[IU]/L Normal 0.44 - 3.98 [facility] Comment on above: Result Comment: TSH testing is performed using different testing methodology at [facility] than at other [facility]. Direct result comparisons should only be made within the same method.. Patients receiving more than 5 mg/day of biotin may have interference in test results. A sample should be taken no sooner than eight hours after previous dose. Contact [phone] for additional information. Performed By: #### T SH2 ####[id number] [place] [address] URINALYSISon 03-19-2018 APPEARANCE CLEAR Normal CLEAR [facility] Comment on above: Performed By: #### U A ####[id number] [place] [address] BILIRUBIN Negative Normal NEGATIVE [facility] Comment on above: Performed By: #### U A ####[id number] [place] [address] BLOOD Negative Normal NEGATIVE [facility] Comment on above: Performed By: #### U A ####[id number] [place] [address] COLOR YELLOW Normal STRAW,YELLOW [facility] Comment on above: Performed By: #### U A ####[id number] [place] [address] GLUCOSE Negative Normal NEGATIVE [facility] Comment on above: Performed By: #### U A ####[id number] [place] [address] KETONES Negative Normal NEGATIVE [facility] Comment on above: Performed By: #### U A ####[id number] [place] [address] LEUKOCYTE ESTERASE Negative Normal NEGATIVE [facility] Comment on above: Performed By: #### U A ####[id number] [place] [address] NITRITE Negative Normal NEGATIVE [facility] Comment on above: Performed By: #### U A ####[id number] [place] [address] pH 6.0 Normal 5.0 - 8.0 [facility] Comment on above: Performed By: #### U A ####[id number] [place] [address] Protein mass conc Negative Normal NEGATIVE [facility] Comment on above: Performed By: #### U A ####[id number] [place] [address] SPECIFIC GRAVITY 1.013 Normal 1.005 - 1.035 [facility] Comment on above: Performed By: #### U A ####[id number] [place] [address] UROBILINOGEN 2.0 mg/dL High 0.0 - 1.9 [facility] Comment on above: Result Comment: SOME PIGMENTS AND MEDICATIONS MAY CAUSE AFALSE POSITIVE UROBILINOGEN Performed By: #### U A ####[id number] [place] [address] URINE CULTURE,BACTERIALon URINE CULTURE,BACTERIAL PATIENT: DON ELKINS LOCATION: [place] [id number]#: [id number] : 50 AGE: SEX: M ORDERED BY: FESTUS PERKINS: URINE COLLECTED: 03/19/18 10:09ANTIBIOTICS AT JIMENA.: RECEIVED : 03/19/18 13:55SITE: Clean Catch/Voided R E S U L T S URINE CULTURE,BACTERIAL FINAL 03/20/18 08:55 NO SIGNIFICANT GROWTH. Normal [facility] Comment on above: Performed By: #### C ####[id number] [place] [place] [address] Vital Signs Date Time Vital Sign Value Performing Clinician Facility 05-24-2024 09:55-0500 Body height 170.2 cm Tyler Estrada MD Work Phone: [facility] 05-24-2024 09:55-0500 Body mass index (BMI) [Ratio] 36.34 kg/m2 Tyler Estrada MD Work Phone: [facility] 05-24-2024 09:55-0500 Body weight 105.23 kg Tyler Estrada MD Work Phone: [facility] 05-24-2024 09:55-0500 Diastolic blood pressure 64 mm[Hg] Tyler Estrada MD Work Phone: [facility] 05-24-2024 09:55-0500 Heart rate 79 /min Tyler Estrada MD Work Phone: [facility] 05-24-2024 09:55-0500 Respiratory rate 18 /min Tyler Estrada MD Work Phone: [facility] 05-24-2024 09:55-0500 Systolic blood pressure 112 mm[Hg] Tyler Estrada MD Work Phone: [facility] 05-21-2024 10:07-0500 Diastolic blood pressure 89 mm[Hg] Sal Sabillon MD Work Phone: [facility] 05-21-2024 10:07-0500 Heart rate 64 /min Sal Sabillon MD Work Phone: [facility] 05-21-2024 10:07-0500 Respiratory rate 16 /min Sal Sabillon MD Work Phone: [facility] 01-03-2025 10:07-0500 SaO2% (BldA) [Mass fraction] 96 % Sla Sabillon MD Work Phone: [facility] 05-21-2024 10:07-0500 Systolic blood pressure 139 mm[Hg] Sal Sabillon MD Work Phone: [facility] 05-21-2024 07:52-0500 Body height 167.64 cm Sal Sabillon MD Work Phone: [facility] 05-21-2024 07:52-0500 Body weight 100.69 kg Sal Sabillon MD Work Phone: [facility] 03-16-2024 09:42-0400 Body height 172.72 cm [facility] 03-16-2024 09:42-0400 Body mass index (BMI) [Ratio] 35.9 kg/m2 [facility] 03-16-2024 09:42-0400 Body weight 107.04 kg [facility] 03-16-2024 09:42-0400 Diastolic blood pressure 74 mm[Hg] [facility] 03-16-2024 09:42-0400 Heart rate 76 /min [facility] 03-16-2024 09:42-0400 Systolic blood pressure 146 mm[Hg] [facility] 01-29-2024 15:05-0400 Body height 172.72 cm [facility] 01-29-2024 15:05-0400 Body mass index (BMI) [Ratio] 35.6 kg/m2 [facility] 01-29-2024 15:05-0400 Body temperature 97.2 [degF] [facility] 01-29-2024 15:05-0400 Body weight 106.25 kg [facility] 01-29-2024 15:05-0400 Diastolic blood pressure 78 mm[Hg] [facility] 01-29-2024 15:05-0400 Heart rate 69 /min [facility] 01-29-2024 15:05-0400 Respiratory rate 16 /min [facility] 01-29-2024 15:05-0400 SaO2% (BldA) [Mass fraction] 96 % [facility] 01-29-2024 15:05-0400 Systolic blood pressure 134 mm[Hg] [facility] 08-14-2023 12:06-0400 Body height 172.72 cm [facility] 08-14-2023 12:06-0400 Body mass index (BMI) [Ratio] 35.2 kg/m2 [facility] 08-14-2023 12:06-0400 Body temperature 96.9 [degF] [facility] 08-14-2023 12:06-0400 Body weight 105.23 kg [facility] 08-14-2023 12:06-0400 Diastolic blood pressure 80 mm[Hg] [facility] 08-14-2023 12:06-0400 Heart rate 76 /min [facility] 08-14-2023 12:06-0400 Respiratory rate 16 /min [facility] 08-14-2023 12:06-0400 SaO2% (BldA) [Mass fraction] 97 % [facility] 08-14-2023 12:06-0400 Systolic blood pressure 130 mm[Hg] [facility] 06-24-2023 10:02-0500 Body height 167.6 cm Oscar Arvizu MD Work Phone: [facility] 06-24-2023 10:02-0500 Body mass index (BMI) [Ratio] 36.32 kg/m2 Oscar Arvizu MD Work Phone: [facility] 06-24-2023 10:02-0500 Body weight 102.06 kg Oscar Arvizu MD Work Phone: [facility] 06-24-2023 10:02-0500 Diastolic blood pressure 72 mm[Hg] Oscar Arvizu MD Work Phone: [facility] 06-24-2023 10:02-0500 Heart rate 77 /min Oscar Arvizu MD Work Phone: [facility] 06-24-2023 10:02-0500 Systolic blood pressure 131 mm[Hg] Oscar Arvizu MD Work Phone: [facility] 01-16-2023 15:00-0400 Body height 172.72 cm Frederick Geovanni Other [facility] Other 01-16-2023 15:00-0400 Body mass index (BMI) [Ratio] 33.96 kg/m2 Frederick Geovanni Other [facility] Other 01-16-2023 15:00-0400 Body temperature 97.3 [degF] Frederick Geovanni Other [facility] Other 01-16-2023 15:00-0400 Body weight 101.33 kg Frederick Geovanni Other [facility] Other 01-16-2023 15:00-0400 Diastolic blood pressure 64 mm[Hg] Frederick Geovanni Other [facility] Other 01-16-2023 15:00-0400 Respiratory rate 18 /min Frederick Geovanni Other [facility] Other 01-16-2023 15:00-0400 SaO2% (BldA) [Mass fraction] 97 % Frederick Geovanni Other [facility] Other 01-16-2023 15:00-0400 Systolic blood pressure 130 mm[Hg] Frederick Geovanni Other [facility] Other 06-20-2022 16:00-0500 Body height 172.72 cm Frederick Geovanni Other [facility] Other 06-20-2022 16:00-0500 Body mass index (BMI) [Ratio] 33.9 kg/m2 Frederick Geovanni Other [facility] Other 06-20-2022 16:00-0500 Body temperature 97 [degF] Frederick Geovanni Other [facility] Other 06-20-2022 16:00-0500 Body weight 101.15 kg Frederick Geovanni Other [facility] Other 06-20-2022 16:00-0500 Diastolic blood pressure 80 mm[Hg] Frederick Geovanni Other [facility] Other 06-20-2022 16:00-0500 Respiratory rate 18 /min Fredreick Geovanni Other [facility] Other 06-20-2022 16:00-0500 SaO2% (BldA) [Mass fraction] 91 % Frederick Geovanni Other [facility] Other 06-20-2022 16:00-0500 Systolic blood pressure 132 mm[Hg] Frederick Geovanni Other [facility] Other 11-22-2021 16:40-0400 Body height 172.72 cm Frederick Geovanni Other [facility] Other 11-22-2021 16:40-0400 Body mass index (BMI) [Ratio] 34.18 kg/m2 Frederick Geovanni Other [facility] Other 11-22-2021 16:40-0400 Body temperature 96.7 [degF] Frederick Geovanni Other [facility] Other 11-22-2021 16:40-0400 Body weight 101.97 kg Frederick Geovanni Other [facility] Other 11-22-2021 16:40-0400 Diastolic blood pressure 76 mm[Hg] Frederick Geovanni Other [facility] Other 11-22-2021 16:40-0400 Respiratory rate 18 /min Frederick Geovanni Other [facility] Other 11-22-2021 16:40-0400 SaO2% (BldA) [Mass fraction] 97 % Frederick Geovanni Other [facility] Other 11-22-2021 16:40-0400 Systolic blood pressure 110 mm[Hg] Frederick Geovanni Other [facility] Other 05-31-2021 16:00-0500 Body height 172.72 cm Frederick Geovanni Other [facility] Other 05-31-2021 16:00-0500 Body mass index (BMI) [Ratio] 35.35 kg/m2 Frederick Geovanni Other [facility] Other 05-31-2021 16:00-0500 Body temperature 96.9 [degF] Frederick Geovanni Other [facility] Other 05-31-2021 16:00-0500 Body weight 105.46 kg Frederick Geovanni Other [facility] Other 05-31-2021 16:00-0500 Diastolic blood pressure 70 mm[Hg] Frederick Geovanni Other [facility] Other 05-31-2021 16:00-0500 Respiratory rate 18 /min Frederick Geovanni Other [facility] Other 05-31-2021 16:00-0500 SaO2% (BldA) [Mass fraction] 97 % Frederick Geovanni Other [facility] Other 05-31-2021 16:00-0500 Systolic blood pressure 110 mm[Hg] Frederick Geovanni Other [facility] Other 04-13-2019 06:55-0500 Body Temperature 98.01 [degF] [facility] [place] 04-13-2019 06:55-0500 BP Diastolic 89 mm[Hg] [place], [place] 04-13-2019 06:55-0500 BP Systolic 164 mm[Hg] [facility] , [place] 04-13-2019 06:55-0500 Pulse (Heart Rate) 82 /min [facility], [place] 04-13-2019 06:55-0500 Pulse Oximetry 96 % [facility] , [place] 04-13-2019 06:55-0500 Respiratory Rate 17 /min [facility] [place] 04-13-2019 05:57-0500 BMI (Body Mass Index) 39.2 kg/m2 [facility] 04-13-2019 05:57-0500 Body weight 113.54 kg [facility] , [place] 04-09-2019 16:35-0500 Height 170.2 cm [facility] , [place] 04-09-2019 05:19-0500 BMI (Body Mass Index) 39.19 kg/m2 [facility], [place] 04-09-2019 05:19-0500 Body weight 113.5 kg [facility] , [place] 04-09-2019 03:30-0500 BP Diastolic 44 mm[Hg] Gilbert Martinez [facility] , [place] 04-09-2019 03:30-0500 BP Systolic 126 mm[Hg] [facility] , [place] 04-09-2019 03:30-0500 Pulse (Heart Rate) 92 /min Gilbert Martinez [facility], [place] 04-09-2019 03:30-0500 Pulse Oximetry 98 % [facility] , [place] 04-09-2019 00:52-0500 Body Temperature 98.2 [degF] [facility], [place] 04-09-2019 00:52-0500 Respiratory Rate 18 /min [facility] [place] 04-07-2019 18:15-0500 Height 170.2 cm [facility] , [place] 04-05-2019 14:57-0500 BP Diastolic 52 mm[Hg] [facility] [place] 04-05-2019 14:57-0500 BP Systolic 94 mm[Hg] [facility] [place] 04-05-2019 14:57-0500 Pulse (Heart Rate) 90 /min [facility], [place] 04-05-2019 14:57-0500 Pulse Oximetry 94 % [facility] [place] 04-05-2019 14:57-0500 Respiratory Rate 16 /min [facility], [place] 04-05-2019 14:06-0500 Body Temperature 98.2 [degF] Reid [facility], [place] 04-05-2019 08:44-0500 BMI (Body Mass Index) 46.66 kg/m2 [facility] [place] 04-05-2019 08:44-0500 Body weight 112.95 kg [facility] , [place] 04-05-2019 08:44-0500 Height 155.6 cm [facility] , [place] 03-30-2019 12:44-0500 BMI (Body Mass Index) 46.66 kg/m2 [address], [place] 03-30-2019 12:44-0500 Body Temperature 96.91 [degF] [facility], [place] 03-30-2019 12:44-0500 Body weight 112.[address] [facility] [place] 03-30-2019 12:44-0500 BP Diastolic 75 mm[Hg] [facility] 1 [facility] , [place] 03-30-2019 12:44-0500 BP Systolic 152 mm[Hg] [address] , [place] 03-30-2019 12:44-0500 Height 155.[address] [facility] [place] 03-30-2019 12:44-0500 Pulse (Heart Rate) 77 /min [address] [facility] [place] 03-30-2019 12:44-0500 Pulse Oximetry 98 % [address] , [place] 03-30-2019 12:44-0500 Respiratory Rate 16 /min [address] [facility] [place] 04-02-2018 04:55-0500 Body temperature 37.0 degrees [facility] Comment on above: Result Comment: NOTE: PATIENT RESULTS AR E NOT CORRECTED FOR TEMPERATURE. Performed By: #### E MRAD ####NO LOCATION NEEDED 04-01-2018 19:29-0500 Body temperature 37.0 degrees [facility] Comment on above: Result Comment: NOTE: PATIENT RESULTS AR E NOT CORRECTED FOR TEMPERATURE. Performed By: #### E MRAD ####NO LOCATION NEEDED 04-01-2018 14:43-0500 Body temperature 37.0 degrees [facility] Comment on above: Result Comment: NOTE: PATIENT RESULTS AR E NOT CORRECTED FOR TEMPERATURE. Performed By: #### E MRAD ####NO LOCATION NEEDED 04-01-2018 11:59-0500 Body temperature 37.0 degrees [facility] Comment on above: Result Comment: NOTE: PATIENT RESULTS AR E NOT CORRECTED FOR TEMPERATURE. Performed By: #### E MRAD ####NO LOCATION NEEDED 04-01-2018 06:26-0500 Body temperature 37.0 degrees [facility] Comment on above: Result Comment: NOTE: PATIENT RESULTS AR E NOT CORRECTED FOR TEMPERATURE. Performed By: #### E MRAD ####NO LOCATION NEEDED 04-01-2018 05:32-0500 Body temperature 37.0 degrees [facility] Comment on above: Result Comment: NOTE: PATIENT RESULTS AR E NOT CORRECTED FOR TEMPERATURE. Performed By: #### E MRAD ####NO LOCATION NEEDED 04-01-2018 04:04-0500 Body temperature 37.0 degrees [facility] Comment on above: Result Comment: NOTE: PATIENT RESULTS AR E NOT CORRECTED FOR TEMPERATURE. Performed By: #### E MRAD ####NO LOCATION NEEDED 04-01-2018 00:50-0500 Body temperature 37.0 degrees [facility] Comment on above: Result Comment: NOTE: PATIENT RESULTS AR E NOT CORRECTED FOR TEMPERATURE. Performed By: #### E MRAD ####NO LOCATION NEEDED 03-31-2018 23:29-0500 Body temperature 37.0 degrees [facility] Comment on above: Result Comment: NOTE: PATIENT RESULTS AR E NOT CORRECTED FOR TEMPERATURE. Performed By: #### E MRAD ####NO LOCATION NEEDED 03-31-2018 20:21-0500 Body temperature 37.0 degrees C [facility] Comment on above: Result Comment: NOTE: PATIENT RESULTS AR E NOT CORRECTED FOR TEMPERATURE. Performed By: #### E MRAD ####NO LOCATION NEEDED 03-31-2018 19:08-0500 Body temperature 37.0 degrees C [facility] Comment on above: Result Comment: NOTE: PATIENT RESULTS AR E NOT CORRECTED FOR TEMPERATURE. Performed By: #### E MRAD ####NO LOCATION NEEDED 03-31-2018 17:37-0500 Body temperature 37.0 degrees [facility] Comment on above: Result Comment: NOTE: PATIENT RESULTS AR E NOT CORRECTED FOR TEMPERATURE. Performed By: #### E MRAD ####NO LOCATION NEEDED 03-31-2018 17:18-0500 Body temperature 37.0 degrees [facility] Comment on above: Result Comment: NOTE: PATIENT RESULTS AR E NOT CORRECTED FOR TEMPERATURE. Performed By: #### E MRAD ####NO LOCATION NEEDED 03-31-2018 17:01-0500 Body temperature 37.0 degrees C [facility] Comment on above: Result Comment: NOTE: PATIENT RESULTS AR E NOT CORRECTED FOR TEMPERATURE. Performed By: #### E MRAD ####NO LOCATION NEEDED 03-31-2018 15:30-0500 Body temperature 37.0 degrees C [facility] Comment on above: Result Comment: NOTE: PATIENT RESULTS AR E NOT CORRECTED FOR TEMPERATURE. Performed By: #### E MRAD ####NO LOCATION NEEDED 03-31-2018 14:29-0500 Body temperature 37.0 degrees C [facility] Comment on above: Result Comment: NOTE: PATIENT RESULTS AR E NOT CORRECTED FOR TEMPERATURE. Performed By: #### A FPA3 ####[id number] [place] [address] 03-31-2018 13:56-0500 Body temperature 37.0 degrees C [facility] Comment on above: Result Comment: NOTE: PATIENT RESULTS AR E NOT CORRECTED FOR TEMPERATURE. Performed By: #### A FPA3 ####[id number] [place] [address] 03-31-2018 13:11-0500 Body temperature 37.0 degrees C [facility] Comment on above: Result Comment: NOTE: PATIENT RESULTS AR E NOT CORRECTED FOR TEMPERATURE. Performed By: #### A FPA3 ####[id number] [place] [address] 03-31-2018 12:53-0500 Body temperature 37.0 degrees C [facility] Comment on above: Result Comment: NOTE: PATIENT RESULTS AR E NOT CORRECTED FOR TEMPERATURE. Performed By: #### A FPA3 ####[id number] [place] [address] 03-31-2018 12:24-0500 Body temperature 37.0 degrees C [facility] Comment on above: Result Comment: NOTE: PATIENT RESULTS AR E NOT CORRECTED FOR TEMPERATURE. Performed By: #### A FPA3 ####[id number] [place] [address] 03-31-2018 11:57-0500 Body temperature 37.0 degrees C [facility] Comment on above: Result Comment: NOTE: PATIENT RESULTS AR E NOT CORRECTED FOR TEMPERATURE. Performed By: #### A FPA3 ####[id number] [place] [address] 03-31-2018 11:45-0500 Body temperature 37.0 degrees [facility] Comment on above: Result Comment: NOTE: PATIENT RESULTS AR E NOT CORRECTED FOR TEMPERATURE. Performed By: #### A FPA3 ####[id number] [place] [address] 03-31-2018 09:53-0500 Body temperature 37.0 degrees [facility] Comment on above: Result Comment: NOTE: PATIENT RESULTS AR E NOT CORRECTED FOR TEMPERATURE. Performed By: #### A FPA3 ####[id number] [place] [address] 03-19-2018 16:32-0400 Body temperature 37.0 degrees [facility] Comment on above: Result Comment: NOTE: PATIENT RESULTS AR E NOT CORRECTED FOR TEMPERATURE. Performed By: #### E MRAD ####NO LOCATION NEEDED Encounters Encounter Date Encounter Type Care Provider Facility Start: 06-23-2024 End: 06-23-2024 ambulatory [facility] Start: 06-01-2024 End: 06-01-2024 Patient encounter procedure Sal Sabillon MD Work Phone: [facility] [place] Work Phone: Start: 06-01-2024 End: 06-01-2024 ambulatory Sal Sabillon MD Work Phone: [facility] Work Phone: Start: 05-24-2024 Non-patient / Non-visit Sal Sabillon MD Work Phone: [facility] Work Phone: Start: 05-24-2024 End: 05-24-2024 Bamboo flowsheet Tyler Estrada MD Work Phone: [facility] Start: 05-24-2024 End: 05-24-2024 Bamboo flowsheet Tyler Estrada MD Work Phone: [facility] Start: 05-24-2024 End: 05-24-2024 Office outpatient visit 40 minutes Tyler Estrada MD Work Phone: [facility] Comment on above: Type 2 diabetes whitney itus with hyperglycemia, without long-term current use of insulin (CMS/HCC) (Primary Dx); Adrenal insufficiency (CMS/HCC); Acquired hypothyroidism (CMS/HCC); Encounter for dietary consultation; Vitamin D deficiency; Current chronic use of systemic steroids; Osteopenia, unspecified location Start: 05-24-2024 End: 05-24-2024 ambulatory TYLER ESTRADA Not Available Start: 05-21-2024 Non-patient / Non-visit Sal Sabillon MD Work Phone: [facility] Work Phone: Start: 05-21-2024 End: 05-21-2024 Admission to same day surgery center Sal Sabillon MD Work Phone: [facility] Work Phone: Start: 05-21-2024 End: 05-21-2024 ambulatory Sal Sabillon MD Work Phone: [facility] Work Phone: Start: 05-15-2024 Non-patient / Non-visit Sal Sabillon MD Work Phone: [facility] Work Phone: Start: 05-14-2024 Non-patient / Non-visit Sal Sabillon MD Work Phone: [facility] Work Phone: Start: 05-13-2024 Non-patient / Non-visit Sal Sabillon MD Work Phone: [facility] Work Phone: Start: 05-05-2024 End: 05-05-2024 Bamboo flowsheet Debbie Gomez CCC-A Work Phone: [facility] Start: 05-05-2024 End: 05-05-2024 Bamboo flowsheet Debbie Gomez CCC-A Work Phone: [facility] Start: 05-05-2024 End: 05-05-2024 Clinical Support Debbie Gomez CCC-A Work Phone: [facility] Comment on above: Sensorineural hearin g loss, bilateral (Primary Dx); Tinnitus, bilateral Start: 03-23-2024 Patient encounter procedure Sal Sabillon MD Work Phone: [facility] Start: 03-17-2024 Non-patient / Non-visit Sal Sabillon MD Work Phone: [facility] Work Phone: Start: 03-16-2024 End: 03-16-2024 ambulatory [facility] Work Phone: Start: 03-16-2024 End: 03-16-2024 Patient encounter procedure [facility] Work Phone: Start: 01-29-2024 End: 01-29-2024 ambulatory [facility] Work Phone: Start: 01-29-2024 End: 01-29-2024 Patient encounter procedure [facility] Work Phone: Start: 01-22-2024 Non-patient / Non-visit [facility] Work Phone: Start: 01-06-2024 End: 01-06-2024 ambulatory [facility] Start: 01-06-2024 End: 01-06-2024 Encounter for other preprocedural examination [facility] Start: 12-23-2023 End: 12-23-2023 ambulatory OSCAR D BEJ Not Available Start: 10-24-2023 End: 10-24-2023 ambulatory OLGA VOGEL Not Available Start: 08-14-2023 End: 08-14-2023 ambulatory [facility] Work Phone: Start: 08-14-2023 End: 08-14-2023 Patient encounter procedure [facility] Work Phone: Start: 08-05-2023 Non-patient / Non-visit [facility] Work Phone: Start: 06-24-2023 Chart abstracting Oscar Shrestha Work Phone: [facility] 111 Start: 06-24-2023 End: 06-24-2023 Office outpatient visit 15 minutes Oscar Arvizu MD Work Phone: [facility] Comment on above: 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 (Primary Dx); Neurogenic pain; Cognitive decline; Cervical paraspinal muscle spasm; Carotid stenosis, bilateral; Stroke, lacunar (CMS/HCC); Cerebral artery occlusion with cerebral infarction (CMS/HCC) Start: 06-24-2023 End: 06-24-2023 ambulatory OSCAR D BEJ Not Available Start: 03-11-2023 End: 03-11-2023 ambulatory Sal Sabillon Other [facility] Other Start: 03-11-2023 Nursing evaluation o f patient and report Sal Sabillon [facility] Start: 01-16-2023 End: 01-16-2023 ambulatory Frederick Dalton Other [facility] Other Start: 01-16-2023 Office outpatient vi sit 25 minutes Frederick Geovanni [facility] Start: 06-20-2022 End: 06-20-2022 ambulatory Frederick Geovanni Other [facility] Other Start: 06-20-2022 Office outpatient vi sit 25 minutes Frederick Geovanni [facility] Start: 06-13-2022 End: 06-14-[address] SAL SABILLON Facility:[facility] Start: 06-07-2022 End: 06-08-[address] SAL SABILLON Facility:[facility] Start: 05-24-2022 End: 05-25-[address] SAL SABILLON Facility:[facility] Start: 01-12-[address] SAL SABILLON [facility] ity:[facility] Start: 11-22-2021 End: 11-22-2021 ambulatory Frederick Geovanni Other [facility] Other Start: 11-22-2021 Office outpatient vi sit 15 minutes Frederick Geovanni [facility] Start: 11-17-2021 End: 11-18-2021 ambulatory FREDERICK GEOVANNI Facility: Start: 06-03-2021 End: 06-03-2021 ambulatory Frederick Geovanni Other [facility] Other Start: 06-03-2021 Telephone encounter Frederick Geovanni [facility] Start: 05-31-2021 End: 05-31-2021 ambulatory Frederick Geovanni Other [facility] Other Start: 05-31-2021 Office outpatient vi sit 25 minutes Frederick Geovanni [facility] Start: 02-08-2021 End: 02-09-2021 ambulatory MARJ DEMARCO Facility:[facility] Start: 04-09-2019 End: 04-13-2019 Evaluation and management of inpatient ELLIE JUÁREZ [facility] Start: 04-09-2019 End: 04-13-2019 Evaluation and management of inpatient Ellie Juárez Work Phone: [facility] Start: 04-07-2019 End: 04-09-2019 Evaluation and management of inpatient SAL SABILLON [facility] Start: 04-07-2019 End: 04-09-2019 Evaluation and management of inpatient Gilbert Martinez Work Phone: [facility] Comment on above: SIRS (systemic infla mmatory response syndrome) (HCC) (Primary Dx); Dehydration; TIFFANI (acute kidney injury) (HCC); Bronchitis; Elevated TSH Start: 04-05-2019 End: 04-05-2019 Patient encounter procedure [facility] Start: 04-05-2019 End: 04-07-2019 Patient encounter procedure [facility] Start: 04-05-2019 End: 04-05-2019 Subsequent hospital visit by physician Reid Mejia Work Phone: [facility] Comment on above: Post-op pain (Primar y Dx) Start: 03-30-2019 End: 04-04-2019 Patient encounter procedure [facility] Start: 03-30-2019 End: 04-03-2019 Subsequent hospital visit by physician Wandy Pat 1 [facility] Pre-Admission Testing Comment on above: Spinal stenosis of l umbar region with radiculopathy; Lumbar spondylosis; Colbert's disease (HCC); Cancer (HCC); Restless leg syndrome; Former smoker, stopped smoking in distant past; Tremors of nervous system; Thyroid disease; Psoriasis Start: 04-30-2018 Patient encounter procedure Jc Vasudeo Sy Facility:[id number] Start: 03-19-2018 End: 04-07-2018 Evaluation and management of inpatient Kenneth Cheng Facility:[facility] Procedures Date Procedure Procedure Detail Performing Clinician Start: 05-24-2024 Gluc bld gluc mntr d ev cleared fda spec home use Tyler Estrada MD Work Phone: Start: 05-21-2024 Screening colonoscopy Cristhian Sabillon MD Work Phone: Start: 05-05-2024 AUDITORY FUNCTION TESTS Debbie Gomez [facility] Work Phone: Start: 04-13-2019 Gluc bld gluc mntr d ev cleared fda spec home use REID ROBERTO Start: 04-13-2019 Gluc bld gluc mntr d ev cleared fda spec home use Unknown Provider Result Start: 04-13-2019 DISCHARGE PATIENT REID YO O Start: 04-13-2019 INITIATE OXYGEN THER APY PROTOCOL REID ROBERTO Start: 04-13-2019 Gluc bld gluc mntr d ev cleared fda spec home use REID ROBERTO Start: 04-13-2019 Prothrombin time REID ROBERTO Start: 04-13-2019 Gluc bld gluc mntr d ev cleared fda spec home use Unknown Provider Result Start: 04-13-2019 Prothrombin time [employer]ista Work Phone: Start: 04-13-2019 INTAKE AND OUTPUT REID YO O Start: 04-13-2019 Gluc bld gluc mntr d ev cleared fda spec home use REID ROBERTO Start: 04-12-2019 Gluc bld gluc mntr d ev cleared fda spec home use REID ROBERTO Start: 04-12-2019 Gluc bld gluc mntr d ev cleared fda spec home use Unknown Provider Result Start: 04-12-2019 Gluc bld gluc mntr d ev cleared fda spec home use REID ROBERTO Start: 04-12-2019 Gluc bld gluc mntr d ev cleared fda spec home use Unknown Provider Result Start: 04-12-2019 Gluc bld gluc mntr d ev cleared fda spec home use REID ROBERTO Start: 04-12-2019 Gluc bld gluc mntr d ev cleared fda spec home use Unknown Provider Result Start: 04-12-2019 REC MISC THERAPY REID ROBERTO Start: 04-12-2019 INITIATE OXYGEN THER APY PROTOCOL REID ROBERTO Start: 04-12-2019 Gluc bld gluc mntr d ev cleared fda spec home use REID ROBERTO Start: 04-12-2019 Prothrombin time REID ROBERTO Start: 04-12-2019 Gluc bld gluc mntr d ev cleared fda spec home use Unknown Provider Result Start: 04-12-2019 Prothrombin time Gerardo [employer] Work Phone: Start: 04-12-2019 INTAKE AND OUTPUT REID YO O Start: 04-12-2019 Gluc bld gluc mntr d ev cleared fda spec home use REDI ROBERTO Start: 04-11-2019 Gluc bld gluc mntr d ev cleared fda spec home use REID ROBERTO Start: 04-11-2019 Gluc bld gluc mntr d ev cleared fda spec home use Unknown Provider Result Start: 04-11-2019 Gluc bld gluc mntr d ev cleared fda spec home use REID ROBERTO Start: 04-11-2019 Gluc bld gluc mntr d ev cleared fda spec home use Unknown Provider Result Start: 04-11-2019 DIET CARB CONTROL REID YO O Start: 04-11-2019 Gluc bld gluc mntr d ev cleared fda spec home use REID ROBERTO Start: 04-11-2019 INITIATE OXYGEN THER APY PROTOCOL REID ROBERTO Start: 04-11-2019 Gluc bld gluc mntr d ev cleared fda spec home use REID ROBERTO Start: 04-11-2019 Prothrombin time REID ROBERTO Start: 04-11-2019 End: 04-11-2019 Gluc bld gluc mntr dev cleared fda spec home use Unknown Provider Result Start: 04-11-2019 Prothrombin time Gerardo Fitzpatrick Work Phone: Start: 04-11-2019 INTAKE AND OUTPUT REID YO O Start: 04-11-2019 Gluc bld gluc mntr d ev cleared fda spec home use REID ROBERTO Start: 04-10-2019 Gluc bld gluc mntr d ev cleared fda spec home use REID ROBERTO Start: 04-10-2019 Gluc bld gluc mntr d ev cleared fda spec home use Unknown Provider Result Start: 04-10-2019 Gluc bld gluc mntr d ev cleared fda spec home use REID ROBERTO Start: 04-10-2019 Gluc bld gluc mntr d ev cleared fda spec home use Unknown Provider Result Start: 04-10-2019 Gluc bld gluc mntr d ev cleared fda spec home use REID ROBERTO Start: 04-10-2019 Gluc bld gluc mntr d ev cleared fda spec home use Unknown Provider Result Start: 04-10-2019 RECREATION COORDINATOR EVAL AND TREAT REID Y OO Start: 04-10-2019 OT EVAL AND TREAT REID YO O Start: 04-10-2019 PT EVAL AND TREAT REID YO O Start: 04-10-2019 INITIATE OXYGEN THER APY PROTOCOL REID ROBERTO Start: 04-10-2019 Gluc bld gluc mntr d ev cleared fda spec home use REID ROBERTO Start: 04-10-2019 Speech and language therapy regime Ellie Juárez Work Phone: Start: 04-10-2019 Prothrombin time REID ROBERTO Start: 04-10-2019 Gluc bld gluc mntr d ev cleared fda spec home use Unknown Provider Result Start: 04-10-2019 Prothrombin time Gerardo Fitzpatrick Work Phone: Start: 04-10-2019 DAILY WEIGHTS REID ROBERTO Start: 04-10-2019 INTAKE AND OUTPUT REID YO O Start: 04-10-2019 Gluc bld gluc mntr d ev cleared fda spec home use REID ROBERTO Start: 04-09-2019 PHARMACY TO DOSE WARFARIN REID ROBERTO Start: 04-09-2019 IP CONSULT TO HOSPITALIST REID ROBERTO Start: 04-09-2019 IP CONSULT TO RESPIR ATORY CARE REID ROBERTO Start: 04-09-2019 Gluc bld gluc mntr d ev cleared fda spec home use REID ROBERTO Start: 04-09-2019 Gluc bld gluc mntr d ev cleared fda spec home use REID ROBERTO Start: 04-09-2019 Gluc bld gluc mntr d ev cleared fda spec home use Unknown Provider Result Start: 04-09-2019 FULL CODE REID ROBERTO Start: 04-09-2019 INITIATE OXYGEN THER APY PROTOCOL REID ROBERTO Start: 04-09-2019 INTAKE AND OUTPUT REID YO O Start: 04-09-2019 NOTIFY PHYSICIAN (SPECIFY) REID ROBERTO Start: 04-09-2019 PLACE INTERMITTENT P NEUMATIC COMPRESSION DEVICE REID ROBERTO Start: 04-09-2019 VITAL SIGNS REID ROBERTO Start: 04-09-2019 INCENTIVE SPIROMETRY RT REID ROBERTO Start: 04-09-2019 INCENTIVE SPIROMETRY RT REID ROBERTO Start: 04-09-2019 Gluc bld gluc mntr d ev cleared fda spec home use REID ROBERTO Start: 04-09-2019 Assay of lactate REID ROBERTO Start: 04-09-2019 INCENTIVE SPIROMETRY RT REID ROBERTO Start: 04-09-2019 Gluc bld gluc mntr d ev cleared fda spec home use Unknown Provider Result Start: 04-09-2019 INCENTIVE SPIROMETRY RT REID ROBERTO Start: 04-09-2019 Assay of lactate REID ROBERTO Start: 04-09-2019 Prothrombin time REID ROBERTO Start: 04-09-2019 DISCHARGE PATIENT REID YO O Start: 04-09-2019 Gluc bld gluc mntr d ev cleared fda spec home use REID ROBERTO Start: 04-09-2019 INCENTIVE SPIROMETRY RT REID ROBERTO Start: 04-09-2019 INITIATE OXYGEN THER APY PROTOCOL REID ROBERTO Start: 04-09-2019 Assay of lactate Shanika Pentito Work Phone: Start: 04-09-2019 Prothrombin time Gerardo Fitzpatrick Work Phone: Start: 04-09-2019 IP CONSULT TO REHAB/ TCU ADMISSION COORDINATOR REID ROBERTO Start: 04-09-2019 OT EVAL AND TREAT REID YO O Start: 04-09-2019 PT EVAL AND TREAT REID YO O Start: 04-09-2019 Gluc bld gluc mntr d ev cleared fda spec home use Unknown Provider Result Start: 04-09-2019 INCENTIVE SPIROMETRY RT REID ROBERTO Start: 04-09-2019 Ecg routine ecg w/le ast 12 lds w/i&r REID ROBERTO Start: 04-09-2019 Assay of lactate REID ROBERTO Start: 04-09-2019 Blood count complete auto&auto difrntl wbc REID ROBERTO Start: 04-09-2019 Comprehensive metabo lic panel REID ROBERTO Start: 04-09-2019 Procalcitonin (pct) REID ROBERTO Start: 04-09-2019 Gluc bld gluc mntr d ev cleared fda spec home use REID ROBERTO Start: 04-09-2019 Assay of lactate Shanika Pentito Work Phone: Start: 04-09-2019 BASIC METABOLIC PANE L W/ REFLEX TO MG FOR LOW K Shanika Pentito Work Phone: Start: 04-09-2019 Blood count complete auto&auto difrntl wbc Shanika Pentito Work Phone: Start: 04-09-2019 Procalcitonin (pct) Erick ole Pentito Work Phone: Start: 04-09-2019 INCENTIVE SPIROMETRY NURSING REID ROBERTO Start: 04-09-2019 INTAKE AND OUTPUT REID YO O Start: 04-09-2019 Assay of lactate REID ROBERTO Start: 04-09-2019 Gluc bld gluc mntr d ev cleared fda spec home use REID ROBERTO Start: 04-09-2019 Assay of lactate Shanika Pentito Work Phone: Start: 04-09-2019 INCENTIVE SPIROMETRY RT REID ROBERTO Start: 04-08-2019 Gluc bld gluc mntr d ev cleared fda spec home use REID ROBERTO Start: 04-08-2019 INCENTIVE SPIROMETRY RT REID ROBERTO Start: 04-08-2019 Gluc bld gluc mntr d ev cleared fda spec home use Unknown Provider Result Start: 04-08-2019 Assay of lactate REID ROBERTO Start: 04-08-2019 INCENTIVE SPIROMETRY RT REID ROBERTO Start: 04-08-2019 Gluc bld gluc mntr d ev cleared fda spec home use REID ROBERTO Start: 04-08-2019 Assay of lactate Shanika Pentito Work Phone: Start: 04-08-2019 DIET CARB CONTROL REID YO O Start: 04-08-2019 INCENTIVE SPIROMETRY RT REID ROBERTO Start: 04-08-2019 OT EVAL AND TREAT REID YO O Start: 04-08-2019 PT EVAL AND TREAT REID YO O Start: 04-08-2019 Gluc bld gluc mntr d ev cleared fda spec home use Unknown Provider Result Start: 04-08-2019 Assay of lactate REID ROBERTO Start: 04-08-2019 Gluc bld gluc mntr d ev cleared fda spec home use REID ROBERTO Start: 04-08-2019 Assay of lactate Shanika Pentito Work Phone: Start: 04-08-2019 Gluc bld gluc mntr d ev cleared fda spec home use Unknown Provider Result Start: 04-08-2019 RADIOLOGY REPORT REID ROBERTO Start: 04-08-2019 INITIATE OXYGEN THER APY PROTOCOL REID ROBERTO Start: 04-08-2019 Gluc bld gluc mntr d ev cleared fda spec home use REID ROBERTO Start: 04-08-2019 RADIOLOGY REPORT Hpf Sc anning Start: 04-08-2019 Gluc bld gluc mntr d ev cleared fda spec home use Unknown Provider Result Start: 04-08-2019 Virus centrifuge enh ncd id imfluor stain ea REID ROBERTO Start: 04-08-2019 Ecg routine ecg w/le ast 12 lds w/i&r REID ROBERTO Start: 04-08-2019 Gluc bld gluc mntr d ev cleared fda spec home use REID ROBERTO Start: 04-08-2019 Blood count complete auto&auto difrntl wbc REID ROBERTO Start: 04-08-2019 Comprehensive metabo lic panel REID ROBERTO Start: 04-08-2019 Hepatic function panel REID ROBERTO Start: 04-08-2019 Assay of lactate REID ROBERTO Start: 04-08-2019 Prothrombin time REID ROBERTO Start: 04-08-2019 TELEMETRY MONITORING REID ROBERTO Start: 04-08-2019 BASIC METABOLIC PANE L W/ REFLEX TO MG FOR LOW K Shanika Jennings Work Phone: Start: 04-08-2019 Blood count complete auto&auto difrntl wbc Shanika Jennings Work Phone: Start: 04-08-2019 Hepatic function panel Shanika Jennings Work Phone: Start: 04-08-2019 LACTATE, SEPSIS Shanika Jennings Work Phone: Start: 04-08-2019 Prothrombin time Shanika Jennings Work Phone: Start: 04-08-2019 Assay of lactate REID ROBERTO Start: 04-08-2019 Gluc bld gluc mntr d ev cleared fda spec home use REID ROBERTO Start: 04-08-2019 PLACE INTERMITTENT P NEUMATIC COMPRESSION DEVICE REID ROBERTO Start: 04-08-2019 REASON FOR NO CHEMIC AL VTE PROPHYLAXIS REID ROBERTO Start: 04-08-2019 DAILY WEIGHTS REID ROBERTO Start: 04-08-2019 FULL CODE REID ROBERTO Start: 04-08-2019 INCENTIVE SPIROMETRY NURSING REID ROBERTO Start: 04-08-2019 INITIATE OXYGEN THER APY PROTOCOL REID ROBERTO Start: 04-08-2019 INTAKE AND OUTPUT REID YO O Start: 04-08-2019 IP CONSULT TO NEUROSURGERY REID ROBERTO Start: 04-08-2019 IP CONSULT TO PHARMACY REID ROBERTO Start: 04-08-2019 NOTIFY PHYSICIAN (SPECIFY) REID ROBERTO Start: 04-08-2019 VITAL SIGNS REID ROBERTO Start: 04-08-2019 PATIENT STATUS (FROM ED OR OR/PROCEDURAL) REID ROBERTO Start: 04-08-2019 POCT VENOUS REID ROBERTO Start: 04-08-2019 LACTATE, SEPSIS Shanika Jennings Work Phone: Start: 04-08-2019 POCT EPOC BLOOD GAS, LACTIC ACID, ICA REID ROBERTO Start: 04-08-2019 Iaadiadoo influenza REID ROBERTO Start: 04-08-2019 Mri spinal canal lum bar w/o & w/contr matrl REID ROBERTO Start: 04-07-2019 POCT VENOUS Unknown Pr ovider Result Start: 04-07-2019 Iaadiadoo influenza Christina Santamaria Work Phone: Start: 04-07-2019 Assay of lactate REID ROBERTO Start: 04-07-2019 Mri spinal canal lum bar w/o & w/contr matrl Jose David Santamaria Work Phone: Start: 04-07-2019 Microscopic examinat ion of blood, culture REID ROBERTO Comment on above: Performed By: #### T S3C #### [facility] [address] [place] [address] Start: 04-07-2019 Ecg routine ecg w/le ast 12 lds w/i&r RIED ROBERTO Start: 04-07-2019 Culture bacterial bl ood aerobic w/id isolates REID ROBERTO Start: 04-07-2019 Radiologic exam ches t single view REID ROBERTO Start: 04-07-2019 Apolipoprotein each REID ROBERTO Start: 04-07-2019 Assay of lipase REID ROBERTO Start: 04-07-2019 Assay of magnesium REID Y OO Start: 04-07-2019 Assay of thyroid sti mulating hormone tsh REID ROBERTO Start: 04-07-2019 Assay of troponin quantitative REID ROBERTO Start: 04-07-2019 Blood count complete auto&auto difrntl wbc REID ROBERTO Start: 04-07-2019 BRAIN NATRIURETIC PEPTIDE REID ROBERTO Start: 04-07-2019 Comprehensive metabo lic panel REID ROBERTO Start: 04-07-2019 Creatine kinase total B O ROBERTO Start: 04-07-2019 Culture bacterial quanttative colony count urine REID ROBERTO Start: 04-07-2019 Molecular cytogeneti cs dna probe each REID ROBERTO Start: 04-07-2019 Procalcitonin (pct) REID ROBERTO Start: 04-07-2019 Prothrombin time REID ROBERTO Start: 04-07-2019 Thromboplastin time partial plasma/whole blood REID ROBERTO Start: 04-07-2019 Urinalysis microscopic only REID ROBERTO Start: 04-07-2019 Urnls dip stick/tabl et rgnt auto w/o microscopy REID ROBERTO Start: 04-07-2019 Assay of lactate Deepthi Santamaria [...] ev cleared fda spec home use REID ROBERTO Start: 04-05-2019 Fluoroscopy up to 1 hour physician/qhp time REID ROBERTO Start: 04-05-2019 DISCHARGE PATIENT REID YO O Start: 04-05-2019 Gluc bld gluc mntr d ev cleared fda spec home use Unknown Provider Result Start: 04-05-2019 Continuous pulse oximetry REID ROBERTO Start: 04-05-2019 ENCOURAGE DEEP BREAT TRINA AND COUGHING REID ROBERTO Start: 04-05-2019 INITIATE OXYGEN THER APY PROTOCOL REID ROBERTO Start: 04-05-2019 BEDREST REID ROBERTO Start: 04-05-2019 NOTIFY PHYSICIAN (SPECIFY) REID ROBERTO Start: 04-05-2019 NURSING COMMUNICATION B O ROBERTO Start: 04-05-2019 VITAL SIGNS REID ROBERTO Start: 04-05-2019 Prothrombin time REID ROBERTO Start: 04-05-2019 DIET NPO, NOW REID ROBERTO Start: 04-05-2019 Gluc bld gluc mntr d ev cleared fda spec home use REID ROBERTO Start: 04-05-2019 GRADUAL COMPRESSION STOCKINGS (DARLYN) REID ROBERTO Start: 04-05-2019 INITIATE OXYGEN THER APY PROTOCOL REID ROBERTO Start: 04-05-2019 NOTIFY PHYSICIAN (SPECIFY) REID ROBERTO Start: 04-05-2019 PLACE INTERMITTENT P NEUMATIC COMPRESSION DEVICE REID ROBERTO Start: 04-05-2019 PULSE OXIMETRY SPOT CHECK REID ROBERTO Start: 04-05-2019 VITAL SIGNS REID ROBERTO Start: 04-05-2019 Prothrombin time Sawyer ia Sharad Singletary Start: 04-05-2019 Gluc bld gluc mntr d ev cleared fda spec home use Unknown Provider Result Start: 03-30-2019 Basic metabolic pane l calcium total REID ROBERTO Start: 03-30-2019 Prothrombin time REID ROBERTO Start: 03-30-2019 Blood count complete automated REID ROBETRO Start: 03-30-2019 TYPE AND SCREEN REID ROBERTO Start: 03-30-2019 Hemoglobin glycosylated a1c REID ROBERTO Start: 03-30-2019 Ecg routine ecg w/le ast 12 lds w/i&r REID ROBERTO Start: 03-30-2019 Antibody screen Mloz 1 Start: 03-30-2019 Basic metabolic pane l calcium total Vicki Orourke Hayder Start: 03-30-2019 Prothrombin time Sawyer Orourke Singletary Start: 03-30-2019 Blood count complete automated Vicki Singletary Start: 03-30-2019 Blood typing serologic abo Vicki Orourke Hayder Start: 03-30-2019 Hemoglobin glycosylated a1c Vicki Orourke Singletary Start: 03-30-2019 Ecg routine ecg w/le ast 12 lds i&r only Vicki Orourke Hayder Start: 04-30-2018 Follow-up visit Start: 03-31-2018 Bypass Coronary Shalini ry, One Artery from Left Internal Mammary, Open Approach Kenneth Cheng Start: 03-31-2018 Excision of Right Sa phenous Vein, Percutaneous Endoscopic Approach Kenneth Cheng Start: 03-31-2018 Performance of Cardi ac Output, Continuous Kenneth Cheng Start: 03-30-2018 Antibody screen Kenneth merlos Comment on above: Performed By: #### T +S ####[id number] [place] [address] Start: 03-23-2018 Insertion of Intralu devon Device into Inferior Vena Cava, Percutaneous Approach Kenneth Cheng Start: 03-22-2018 Antibody screen Kenneth merlos Comment on above: Performed By: #### L IPID ####[id number] [place] [address] Start: 03-19-2018 Echocardiography Kenneth Cheng Plan of Treatment Date Care Activity Detail Author Start: 12-21-2024 End: 12-21-2024 Patient encounter procedure 12/21/2024 10:30 AM EDT Office Visit [facility] [address] [place] [address] Oscar Arvizu MD [address] [id number] [facility] Start: 11-29-2024 End: 11-29-2024 Patient encounter procedure 11/29/2024 9:40 AM EDT Office Visit [facility] [address] [place] [phone] Tyler Estrada MD [address] [place] [address] [facility] Start: 05-24-2024 End: 05-24-2025 25-hydroxyvitamin D3 [Mass/volume] in Serum or Plasma Vitamin D 25 hydroxy Total Lab Routine Type 2 diabetes mellitus with hyperglycemia, without long-term current use of insulin ([facility]) Expected: 05/24/2024 (Approximate), Expires: 05/24/2025 [facility] Comment on above: Expected: 05/24/2024 (Approximate), Expi res: 05/24/2025 Start: 05-24-2024 End: 05-24-2025 Lipid 1996 panel - Serum or Plasma Lipid panel Lab Routine Type 2 diabetes mellitus with hyperglycemia, without long-term current use of insulin ([facility]) Expected: 05/24/2024 (Approximate), Expires: 05/24/2025 [facility] Comment on above: Expected: 05/24/2024 (Approximate), Expi res: 05/24/2025 Start: 05-24-2024 End: 05-24-2025 Microalbumin/Creatinine panel in random Urine Microalbumin / creatinine urine ratio Lab Routine Type 2 diabetes mellitus with hyperglycemia, without long-term current use of insulin ([facility]) Expected: 05/24/2024 (Approximate), Expires: 05/24/2025 [facility] Comment on above: Expected: 05/24/2024 (Approximate), Expi res: 05/24/2025 Start: 05-24-2024 End: 05-24-2025 Renal function panel Renal function panel Lab Routine Type 2 diabetes mellitus with hyperglycemia, without long-term current use of insulin ([facility]) Expected: 05/24/2024 (Approximate), Expires: 05/24/2025 [facility] Comment on above: Expected: 05/24/2024 (Approximate), Expi res: 05/24/2025 Start: 05-24-2024 End: 05-24-2025 Thyrotropin [Units/volume] in Serum or Plasma TSH Lab Routine Acquired hypothyroidism (CMS/HCC) Expected: 05/24/2024 (Approximate), Expires: 05/24/2025 [facility] Comment on above: Expected: 05/24/2024 (Approximate), Expi res: 05/24/2025 Start: 05-24-2024 End: 05-24-2025 Thyroxine (T4) free [Mass/volume] in Serum or Plasma T4, free Lab Routine Acquired hypothyroidism (CMS/HCC) Expected: 05/24/2024 (Approximate), Expires: 05/24/2025 [facility] Comment on above: Expected: 05/24/2024 (Approximate), Expi res: 05/24/2025 Start: 05-24-2024 End: 05-24-2025 Triiodothyronine (T3) Free [Mass/volume] in Serum or Plasma T3, free Lab Routine Acquired hypothyroidism (CMS/HCC) Expected: 05/24/2024 (Approximate), Expires: 05/24/2025 [facility] Work Phone: Comment on above: Expected: 05/24/2024 (Approximate), Expi res: 05/24/2025 Start: 05-24-2024 End: 05-24-2024 Patient encounter procedure [facility] Comment on above: Type 2 diabetes mellitus with hyperglyce river, without long-term current use of insulin ([facility]) Start: 05-21-2024 [facility] Start: 05-05-2024 End: 05-05-2024 Clinical Support 05/05/2024 1:00 PM EST Clinical Support [facility] [address] [place] [address] Debbie Gomez, [facility] [address] [place], [place] [id number] Arrived [facility] Comment on above: Arrived Start: 03-23-2024 Patient referral [facility] Work Phone: Start: 01-18-2024 Influenza vaccination Influenza Vaccine (#1) [facility] Start: 12-23-2023 End: 12-23-2023 Patient encounter procedure 12/23/2023 10:30 AM EDT Office Visit [facility] [address] [place] [address] Oscar Arvizu MD [address] [facility] [address] [place], [place] [id number] [facility] Start: 06-24-2023 End: 06-24-2024 US.doppler Carotid arteries - bilateral Vascular US carotid artery duplex bilateral Imaging Routine Carotid stenosis, bilateral Stroke, lacunar (CMS/HCC) Cerebral artery occlusion with cerebral infarction (CMS/HCC) Expected: 06/24/2023 (Approximate), Expires: 06/24/2024 [facility] Work Phone: Comment on above: Expected: 06/24/2023 (Approximate), Expi res: 06/24/2024 Start: 01-17-2023 Influenza vaccination Influenza Vaccine (#1) [facility] Start: 06-25-2022 Pneumococcal Vaccine: 65+ Years (2 - PCV) Pneumococcal Vaccine: 65+ Years (2 - PCV) [facility] Start: 06-25-2022 Pneumococcal Vaccine: 65+ Years (2 of 2 - PCV) Pneumococcal Vaccine: 65+ Years (2 of 2 - PCV) [facility] Start: 05-01-2020 DTaP/Tdap/Td vaccine (3 - Td) DTaP/Tdap/Td vaccine (3 - Td) [facility], [place] Start: 04-09-2020 Creatinine monitoring Creatinine monitoring [facility] , [place] Start: 04-09-2020 Potassium monitoring Potassium monitoring [facility], [place] Start: 04-08-2020 Creatinine monitoring Creatinine monitoring [facility] [place] Start: 04-08-2020 Potassium monitoring Potassium monitoring [facility] [place] Start: 03-30-2020 Creatinine monitoring Creatinine monitoring [facility] , [place] Start: 03-30-2020 Potassium monitoring Potassium monitoring [facility], [place] Start: 06-30-2019 A1C test (Diabetic or Prediabetic) A1C test (Diabetic or Prediabetic) [place], [place] Start: 04-23-2019 End: 04-23-2019 Office Visit 04/23/2019 Office Visit Neurosurgery Reid Mejia MD [address] [facility], [address] [place] [address] [facility] Start: 04-05-2019 End: 04-05-2019 Hospital Encounter [facility] Comment on above: L 3, L 4 LUMBAR DECOMPRESSION, 1 HOUR/ 1 C-ARM Start: 01-17-2019 Influenza vaccination Flu vaccine (#1) [place], [place] Start: 11-08-2018 Annual Wellness Visit (AWV) Annual Wellness Visit (AWV) [place], [place] Start: 08-27-2015 Pneumococcal 65+ years Vaccine (1 of 1 - PPSV23) Pneumococcal 65+ years Vaccine (1 of 1 - PPSV23) [place] Start: 08-27-2015 Pneumococcal 65+ years Vaccine (2 of 2 - PPSV23) Pneumococcal 65+ years Vaccine (2 of 2 - PPSV23) [place], [place] Start: 2000 Colon cancer screen colonoscopy Colon cancer screen colonoscopy [place], [place] Start: 2000 Shingles Vaccine (1 of 2) Shingles Vaccine (1 of 2) [place], [place] Start: 1968 Diabetic microalbuminuria test Diabetic microalbuminuria test [place], [place] Start: 1960 [object Object] Diabetic foot exam [place], [place] Start: 1960 Diabetic retinal exam Diabetic retinal exam [place], [place] Start: 1960 Lipid screen Lipid screen [place], [place] Start: 1950 AAA screen AAA screen [place], [place] Start: 1950 Hepatitis C screen Hepatitis C screen [place], [place] Start: 1950 Screening for malignant neoplasm of colon [facility] Basic Metabolic Pane l w/ Reflex to MG Basic Metabolic Panel w/ Reflex to MG Lab Routine Daily until discontinued starting 04/08/2019, 2 completed [place], [place] Comment on above: Daily until discontinued starting 2018, 2 completed CBC auto differential CBC auto d ifferential Lab Routine Daily until discontinued starting 04/08/2019, 2 [facility]: Daily until discontinued starting 2018, 2 completed Culture Blood #1 Culture Blood # 1 Microbiology STAT 04/07/2019 7:04 PM [facility] Blood #2 Culture Blood # 2 Microbiology STAT 04/07/2019 6:56 PM EST [facility] Comment on above: Daily until discontinued starting 2018, 2 completed Incentive spirometry RT post-op Incentive spirometry RT post-op Respiratory Care Routine Every 2hr while awake until discontinued starting 04[facility]08/2019 [facility] Comment on above: Every 2hr while awake until discontinued starting 04/08/2019 Initiate Oxygen Ther apy Protocol [facility] Comment on above: Daily until discontinued starting 2018 Daily until disconti nued starting 04/10/2019 Daily until disconti nued starting 04/08/2019 Lactic acid, plasma Lactic acid, plasma Lab Routine Every 6hr until discontinued starting 04/08/2019, 5 completed [facility] Comment on above: Every 6hr until discontinued starting , 5 completed Patient Education Hemorrhoids Co mani polyps Know your Meds [facility] Work Phone: Patient referral [facility] Work Phone: Phase I & II - meter ed glucose [facility] Comment on above: As Needed [...] for 1 Occurrences starting 04/05/2019 until 04/05/2019 [facility] Comment on above: One Time for 1 Occurrences starting 03/19 until 04/05/2019 End: 04-11-2019 Procalcitonin Procalcitonin Lab Routine Q48H for 2 Occurrences starting 04/09/2019 until 04/11/2019, 1 completed [facility] [place] Comment on above: Q48H for 2 Occurrences starting 04/09/20 19 until 04/11/2019, 1 completed [facility]: Daily until discontinued starting 2018, 4 completed Daily until disconti nued starting 04/10/2019 End: 04-05-2019 Pulse Oximetry Spot Check Pulse Oximetry Spot Check Respiratory Care Routine One Time for 1 Occurrences starting 04/05/2019 until 04/05/2019 [facility] [place] Comment on above: One Time for 1 Occurrences starting 03/19 until 04/05/2019 Renal function 2000 panel - Serum or Plasma [facility] Renal function 2000 panel - Serum or Plasma [facility] Respiratory Culture Respiratory Culture Microbiology Routine 04/08/2019 5:06 AM EST [facility] Immunizations Immunization Date Immunization Notes Care Provider [facility]-19-2023 influenza virus vaccine, unspecified [facility] 04-04-2023 ABRYSVO - Respirator y syncytial virus (RSV), vaccine, bivalent, protein subunit RSV prefusion F, diluent reconstituted, 0.5 mL, PF [facility] Work Phone: [facility] 03-11-2023 influenza, high dose seasonal, preservative-free Sal Sabillon Other [facility] Other 03-11-2023 influenza virus vaccine, unspecified formulation [facility] 07-01-2022 Influenza, Seasonal, Quadrivalent, Adjuvanted [facility] Work Phone: [facility] 07-01-2022 tetanus toxoid, redu erendira diphtheria toxoid, and acellular pertussis vaccine, adsorbed [facility] Work Phone: [facility] 07-01-2022 influenza virus vaccine, unspecified formulation Oscar Arvizu MD Work Phone: [facility] 06-25-2021 Influenza, Seasonal, Quadrivalent, Adjuvanted [facility] Work Phone: [facility] 06-25-2021 pneumococcal polysaccharide vaccine, 23 valent [facility] Work Phone: [facility] 11-27-2020 zoster vaccine recombinant [facility] Work Phone: [facility] 09-06-2020 zoster vaccine recombinant [facility] Work Phone: [facility] 08-05-2020 COVID-19 mRNA, Comirnaty (Pfizer) [facility] 07-22-2020 COVID-19 mRNA, Comirnaty (Pfizer) [facility] 07-15-2020 Pfizer Purple Cap SARS-CoV-2 Vaccination [facility] Work Phone: [facility] 02-17-2020 influenza virus vaccine, unspecified formulation [facility] Work Phone: [facility] 02-11-2019 Seasonal trivalent influenza vaccine, adjuvanted, preservative free [facility] Work Phone: [facility] 03-20-2018 influenza, high dose seasonal, preservative-free [facility] Work Phone: [facility] 03-04-2016 influenza, high dose seasonal, preservative-free [facility] Work Phone: [facility] 05-01-2010 tetanus toxoid, redu erendira diphtheria toxoid, and acellular pertussis vaccine, adsorbed [facility] Work Phone: [facility] 03-31-2010 tetanus toxoid, redu erendira diphtheria toxoid, and acellular pertussis vaccine, adsorbed Debbie Gomez [facility] Work Phone: [facility] 03-16-2001 TD(adult) unspecifie d formulation Debbie Gomez [facility] Work Phone: [facility] 10-27-1991 yellow fever vaccine Debbie Gomez [facility] Work Phone: [facility] Healthcare Payers Date Payer Category Payer Medicare (Managed Care) [employer] [id number] 2023 Unknown [employer] D [employer] [id number] 2023-Present [address] [place] [address] [id number] 2023 Medicare [id number] 2022 Private Health Insurance [employer] A ETNA SENIOR SUPPLEMENT [id number] 2022-Present [address] [address] [place] [address] Supplement [id number] 2017 Medicare [id number] 2017 Medicare xxxxxxxxxx [id number] 2015 Medicare MEDICARE MEDICAR E PART B [id number] 2015-[place] [address] Medicare [id number] 1959 Medicare [id number] 1959 Private Health Insurance [facility] [id number] 1959 Self-pay 1950 Unknown [id number] .356 1950 Unknown [id number] 2.16.840.1.159585.3.579.2 .1046 1950 Unknown [id number] 2.16.840.1.981406.3.579.2 .182 1950 Unknown [id number] 2.16.840.1.132990.3.579.2 .182 1950 Unknown [id number] 2.16.840.1.838793.3.579.2 .182 1950 Unknown [id number] 2.16.840.1.219702.3.579.2 .182 1950 Unknown [id number] 2.16.840.1.282948.3.579.2 .182 1950 Unknown [id number] 2.16.840.1.927087.3.579.2 .647 1950 Unknown [id number] 2.16.840.1.670458.3.579.2 .593 1950 Unknown [id number] 2.16.840.1.765784.3.579.2 .593 1950 Unknown [id number] 2.16.840.1.443449.3.579.2 .593 1950 Unknown [id number] 2.16.840.1.399338.3.579.2 .593 1950 Unknown [id number] 2.16.840.1.764273.3.579.2 .593 1950 Unknown [id number] 2.16.840.1.690098.3.579.2 .1259 1950 Unknown [id number] 2.16.840.1.010279.3.579.2 .1259 1950 Unknown [id number] 2.16.840.1.603075.3.579.2 .1259 1950 Unknown [id number] 2.16.840.1.679230.3.579.2 .1259 1950 Unknown [id number] 2.16.840.1.701087.3.579.2 .1259 Private Health Insurance [facility] [id number] Unknown [id number] Unknown [id number] [id number] .531 Unknown [id number] 2.16.840.1.780591.3.579.2 .531 Social History Date Type Detail Facility Start: 04-05-2019 End: 05-21-2024 Tobacco smoking status [facility] Former smoker [facility] End: 03-30-1991 History of tobacco use Current smoker [place] End: 03-30-1991 History of tobacco use Cigarette Sm[place] Start: 04-05-2019 End: 05-24-2024 Cigarettes smoked current (pack per day) - Reported [place], [place] History of tobacco use Chews Tobacco [place], [place] Start: 04-05-2019 End: 05-24-2024 Alcohol intake Current drinker of alcohol (finding) [place] Start: 03-30-2019 Alcohol Comment social [place], [place] Start: 1950 Sex Assigned At Not on file [place] Start: 04-09-2019 History SDOH Social Connections Phone 5 [place] Start: 04-09-2019 History SDOH Social Connections Get Together 3 [place] Start: 04-09-2019 History SDOH [facility] Start: 04-09-2019 History [facility] Social Connections Meetings 1 [facility] Start: 04-09-2019 History [facility] Physica l Activity DPW 0 [facility] Start: 10-11-2022 End: 05-24-2024 Sex Assigned At [facility] Other Start: 09-27-2022 Tobacco use and exposure Smokeless tobacco non-user [facility] Start: 09-27-2022 Tobacco Comment >10 years sinc e last smoked [facility] Start: 09-27-2022 Alcohol Comment caffeine: coffee [facility] Start: 1950 Sex Assigned At Male F [facility] Start: 05-21-2024 End: 06-02-2024 Sex Male (finding) [facility] Goals Date Patient Goal Desired Activity /State Clinical Notes 11-24-2020 to 06-23-2024 Tyler Estrada MD - 05/24/2024 9:40 AM Jamil Gomez [facility]-Shaq - 05/05/2024 1:00 PM EST Note Date & Type Note Facility 06-23-2024 Note [facility] Cardiology Clinic Note Chief Complaint: Follow-up HPI: 73-year-old with a history of coronary artery disease, coronary artery bypass graft surgery in 2018 Patient here for 6 mo follow up CAD, hypertension, and valve regurgitation. Had echo last month. He denies chest pain, SOB, and palpitations. Was admitted to [facility] in Apr 2024 for dehydration. Doing well apart from his chronic lightheadedness and orthostatic hypotension Cardiology ROS: GENERAL: Denies fever, chills, night sweats, weight loss. HEENT: Denies changes in vision, photophobia, changes in hearing, epistaxis, oral bleeding. CARDIOVASCULAR: Denies chest pain, exertional dyspnea, orthopnea/PND, lower extremity edema, palpitations, +lightheadedness/dizziness. RESPIRATORY: Denies SOB, coughing, wheezing GI: Denies abdominal pain, nausea/vomiting, heartburn, melena/hematochezia. RENAL: Denies dysuria, hematuria, flank pain. MSK: Denies muscle weakness/pain, arthralgias/joint pain. NEUROLOGIC: Denies LOC, weakness, numbness, headaches. SKIN: Denies abnormal rashes or bleeding. PSYCH: Denies significant anxiety, depression, sleep disturbances. Past Medical History He has a past medical history of Coronary artery disease, Hyperlipidemia, NSVT (nonsustained ventricular tachycardia), and Pulmonary embolism (CMS/HCC). Surgical History He has a past surgical history that includes Appendectomy; Carpal tunnel release; Cholecystectomy; Plantar fascia release; Prostatectomy; IVC filter retrieval (07/03/2018); Coronary artery bypass graft (03/19/2018); and Cardiac catheterization (03/15/2018). Social History He reports that he has quit smoking. His smoking use included cigarettes. He has never used smokeless tobacco. He reports that he does not currently use alcohol. No history on file for drug use. Family History Family History Problem Relation Name Age of Onset Diabetes Mother Coronary artery disease Brother Other (coronary artery bypass) Brother Heart failure Brother Allergies Patient has no known allergies. Medications (Not in a hospital admission) Last Recorded Vitals Patient Vitals for the past 24 hrs: BP Pulse SpO2 Height Weight 06/23/24 1050 128/78 75 96 % 1.727 m (5' 8 ) 102 kg (225 lb) Physical Examination: GENERAL: alert and oriented x3, well developed, in no acute distress. HEAD: atraumatic, normocephalic. EYES: SANDEE, EOMI. NECK: trachea midline, no JVD present, no carotid bruits present. CARDIAC: S1, S2 present. RRR. No murmur, rubs, or gallops. RESPIRATORY: CTAB, no increased effort of breathing, no rales, rhonchi, or wheezing. ABDOMEN: soft, nontender, nondistended. EXTREMITIES: no lower extremity edema, peripheral pulses are 2+ bilaterally. No rash/skin discoloration present. NEURO: strength/sensation equal and symmetric in bilateral upper and lower extremities. PSYCH: appropriate mood, affect, and judgement. Investigations: Labs 06/01/2021 CBC-hemoglobin 12.9, platelet 235, WBC 9.1 BMP-creatinine 1.89, BUN 23, K4.7, GFR 35 Mag-1.6 ECHO (01/23/21): preserved LVEF, EF >55%, indeterminate diastolic function, no significant RWMA, normal RV size and function, no significant valvular disease NM stress test (01/23/21): 1. normal nuclear medicine myocardial perfusion scan 2. Abnormal EKG portion of the study Labs from 09/28/2020 BUN 18 creatinine 1.39, potassium 4.3-these are stable and about typical for him White blood cell count 9.8, hemoglobin slightly low 13.3, hematocrit 39.1 and platelets stable 229 CTA chest 06/13/2018: no PE, no pulmonary infiltrates ECHO 03/15/2018: EF 60-65%, mild LVH, mild LA enlargement, diastolic dysfunction, mild AR Echocardiogram 05/24/2024: Global left ventricular systolic function is normal; visually estimated ejection fraction is 55 to 60% Normal right ventricular size and systolic function Normal diastolic function The left atrium is normal in size No significant valvular abnormalities Assessment: Coronary atherosclerosis, History of coronary artery bypass graft surgery in 2018 Nonsustained ventricular tachycardia Orthostatic hypotension Diabetes mellitus History of pulmonary embolism Syncope Mild aortic regurgitation Plan: Continue medical therapy for coronary artery disease including aspirin, high intensity statin therapy, a beta-danica and an angiotensin-converting enzyme inhibitor Given diabetes mellitus and coronary artery disease as well as a history of diastolic dysfunction, would recommend an SGLT2 inhibitor in the form of Jardiance or Farxiga or a GLP1 RA - he is on Ozempic Given the duration of time since his last stress test (01/2021), and his diabetes that may lead to silent ischemia, I have recommended a Lexiscan Cardiolite stress test Aggressive cardiovascular factor modification Return to clinic in 1 year or sooner should problems arise Damaris Meier MD, MPH, FACC, [facility], FSVM Inte (more content not included)... [facility] 05-24-2024 History of Present illness Narrative Don Elkins is a 73 y.o. male No ref. provider found presents with chief complaint of Diabetes and Follow-up HPI: Interim History 05/2023 Followup visit 05/24/2023 for type 2 diabetes. A1c 7.5, BG 330, ozepmic 1 mg daily . hydrocortisone 20 mg am and 10 mg pm and Florinef 0.1 every other day, GFR 46 on 12/2023. on levothyroxine 150 mcg daily Interim History 01/2024 Followup visit 01/20/2024 for type 2 diabetes. A1c 8.6 on 01/2024, , BG 139, ozepmic 0.5 mg daily . hydrocortisone 20 mg am and 10 mg pm and Florinef 0.1 every other day ,off for 3weeks. TSH 1.71, FT4 0.95, FT3 1.71 (2.18-3.98), C PEPTIDFE 19.7, LDL 33, VIT D 61, GFR 44 on 07/2023. Interim History 07/2023 Followup visit 07/21/2023 for type 2 diabetes. A1c 7 on 06/2023, , BG 329, ozepmic 0.5 mg daily . hydrocortisone 20 mg am and 10 mg pm and Florinef 0.1 every other day. TSH 2.32, FT4 1.27 on 06/2023. Interim History 01/2023 Followup visit 01/27/2023 for type 2 diabetes. A1c 6.2, , BG 233. HE IS off metformin 500 twice a day and ozepmic 0.5 mg daily . hydrocortisone 20 mg am and 10 mg pm and Florinef o.1 every other day. Interim History 07/2022 Followup visit 07/22/2022 for type 2 diabetes. A1c on 06/2022 5.6 , BG 218. HE IS ON metformin 500 twice a day and ozepmic 1 mg daily . hydrocortisone 20 mg am and 10 mg pm and Florinef o.1 the same Interim History 08/07: Followup visit 08/08/2021 for type 2 diabetes. A1c in the office 6.8 , BG 235. A1c in the office 6.2, bg 235. He is OFF Lantus 20 and OFF Victoza 1.8. HE IS ON metformin 500 twice a day and ozepmic 1 mg daily ?. hydrocortisone and Florinef the same Interim History 09/06: Followup visit 09/04/20 for type 2 diabetes. A1c in the office 12.1. Lab done in May: BUN 21, creatinine 1.4, GFR 50, TSH 2.53, free T4 of 1.03 (0.78 to 2.19). We did DEXA scan that shows left forearm 0.681; left femoral neck 1.25, -1; right femoral neck 1.032, -0.3; left femoral neck 0.992, -0.6. He is on Lantus 20 and Victoza 1.8 and metformin 500 twice a day. hydrocortisone and Florinef as before. HPI: 05/2020 New patient sent from old accounts receivable specialist, Xavier Lake MD. He used to follow him for a long time. He had diagnoses of adrenal insufficiency in 2002 due to fatigue/tiredness. He is currently on hydrocortisone 20 mg in the morning, 10 mg in afternoon; Florinef 0.1 mg every other day; levothyroxine 150. Also, he has new lab range 7.7. He is on Lantus 20 units at bedtime, Victoza 1.8. He brought his medication list and problem list. He has done labs, but we do not have the results, will call for them. SUBJECTIVE: MEDICATIONS: Current Outpatient Medications Medication Instructions amantadine (Symmetrel) 100 MG tablet 1 tablet, Daily aspirin 81 MG chewable tablet 1 tablet, Daily atorvastatin (Lipitor) 40 MG tablet 1 tablet, Daily carbidopa-levodopa (Parcopa) 25-100 MG disintegrating tablet 1 tablet, 2 times daily cholestyramine (Questran) 4 g packet use 1 (ONE) PACKET BY MOUTH DAILY citalopram (CeleXA) 20 MG tablet 1 tablet, Daily coenzyme Q-10 100 MG capsule 1 capsule, Daily donepezil (ARICEPT) 10 mg, Oral, Daily fludrocortisone (Florinef) 0.1 MG tablet 1 tablet, Every other day gabapentin (Neurontin) 800 MG tablet 1 tab BID, may incr to TID hydrocortisone (Cortef) 10 MG tablet TAKE 2 TABLETS BY MOUTH IN THE MORNING AND ONE TABLET BY MOUTH IN THE EVENING hydrocortisone (Cortef) 20 MG tablet TAKE 1 TABLET BY MOUTH IN THE MORNING then TAKE 1/2 (ONE-HALF) OF A TABLET BY MOUTH IN THE EVENING levothyroxine (Synthroid, Levoxyl) 125 MCG tablet 1 tablet, Daily lisinopril 5 MG tablet Take 1 tablet every day by oral route for 90 days. magnesium 30 MG tablet 1 tablet, Daily memantine (NAMENDA) 10 mg, Oral, 2 times daily metFORMIN (Glucophage) 500 MG tablet 1 tablet, 2 times daily metoprolol tartrate (Lopressor) 25 MG tablet 3 tablets, 2 times daily Multiple Vitamins-Minerals (CENTRUM ADULT PO) 1 tablet, Daily omega-3 (fish oil) 600 MG capsule 1 capsule, Every 24 hours omeprazole (PriLOSEC) [address] capsule Take 1 capsule every day by oral route. rOPINIRole XL (Requip XL) 8 MG 24 hr tablet 1 tablet, Daily semaglutide (OZEMPIC) 1 mg, Weekly Semaglutide,0.25 or 0.5MG/DOS, 2 MG/3ML solution pen-injector As Directed tiZANidine (Zanaflex) 4 MG tablet 1 tablet, Oral, 2 times daily PRN ALLERGIES: No Known Allergies Past Medical History: Diagnosis Date Brigida's disease (CMS/HCC) Chronic kidney disease, stage III (moderate) (HCC) (CMS/HCC) Current use of insulin (CMS/HCC) Current use of steroid medication Depression (CMS/HCC) Diabetes (CMS/HCC) Dietary counseling and surveillance GERD (gastroesophageal reflux disease) History of hepatitis B Hyperlipidemia (CMS/HCC) Hypertension (CMS/HCC) Hypothyroidism (CMS/HCC) Prostate cancer (CMS/HCC) Prostate cancer (CMS/HCC) Sleep apnea Thyroid disease (CMS/HCC) Type 2 diabetes mellitus with other circulatory complications (CMS/HCC) Vitamin D deficiency Past Surgical History: Procedure Laterality Date APPENDECTOMY CARPAL TUNNEL RELEASE Bilateral CATARACT EXTRACTION 2004 CHOLECYSTECTOMY 2014 COLONOSCOPY 2009 NOSE SURGERY x 2 OTHER SURGICAL HISTORY Adrenal glands removed PLANTAR FASCIA SURGERY [facility] Disease:Brigida's Disease NH RELEASE THENAR MUSCLE Right 06/13/2014 thumb trigger release RADICAL PROSTATECTOMY [facility] 2009 Disease:Prostate cancer TRIGGER FINGER RELEASE REVIEW OF SYMPTOMS: 14 POINT OF SYSTEM REVIEWED AND NEGATIVE OBJECTIVE: Constitutional: Afebrile @ home; no weakness or night sweats SKIN: No change in skin color; no itching, rash or lesions; no hair loss; HEENT: No HAs or injury; no dizziness; No difficulty with vision; no eye pain, discharge or lesions; no hearing loss or difficulty; no nasal discharge, NECK: No pain, limitation of motion, lumps or swollen glands RESP: No cough, wheezing or difficulty breathing. No CP with breathing; CARDIO: No CP , SOB or fatigue, No edema, palpitations or dyspnea with exertion GI: No N/V/D or abd. pain; good appetite with no recent change. No heart burn, liver or gallbladder disease; no rectal bleeding or pain : No urinary pain , frequency or odor. MUSCULOSKELETAL: No muscle pain or cramps; no extremity weakness.No joint pain, stiffness, swelling or limitation of movement NEUROLOGY: No H/O seizures, stroke or fainting. No weakness, tremors. Hematology: No bleeding problems or excessive bruising ENDOCRINE: No increase in hunger, thirst or urination; admits compliance to medical management plan Feet: numbness tingling yes , ulcers or skin break no Lab Results Component Value Date HGBA1C 7.5 05/24/2024 Lab Results Component Value Date GLU 330 05/24/2024 GLU 238 (H) 12/20/2020 GLU 336 (H) 07/18/2020 Visit Vitals BP 112/64 Pulse 79 Resp 18 Ht 5' 7 Wt 232 lb BMI 36.34 kg/m Smoking Status Former BSA 2.23 m ASSESSMENT AND PLAN: Assessment/Plan Diagnoses and all orders for this visit: Type 2 diabetes mellitus with hyperglycemia, without long-term current use of insulin (CMS/HCC) - POCT glucose manually resulted - POCT glycosylated hemoglobin (Hb A1C) docked device - Vitamin D 25 hydroxy Total; Future - Microalbumin / creatinine urine ratio; Future - Lipid panel; Future - Renal function panel; Future We will continue his Ozempic 1 mg once weekly. Adrenal insufficiency (CMS/HCC) We will continue with hydrocortisone 20 mg in the morning 10 mg after noon. Acquired hypothyroidism (CMS/HCC) - T3, free; Future - T4, free; Future - TSH; Future We will continue with levothyroxine 150 mcg daily. Encounter for dietary consultation Diet and exercise reviewed with the patient Vitamin D deficiency Current chronic use of systemic steroids Osteopenia, unspecified location Follow up in about 6 months (around 11/21/2024). documented in this encounter [facility] 05-21-2024 History and physi steve note [facility] 05-21-2024 Procedure note [facility] 05-05-2024 History of Presen t illness Narrative History: Pt has history of [...] Mishra review audiogram documented in this encounter [facility] 03-16-2024 Evaluation note Diagnosis Onset Date Resolution Brigida disease acute February 172023 9:38am Encounter for screening colonoscopy acute March 16 9:38am Hypertensive chronic kidney disease with stage 1 through stage 4 chronic ki acute March 16 9:38am Medicare annual wellness visit, subsequent acute March 16 9:38am AKASH (obstructive sleep apnea) acute March 16 9:38am Screening PSA (prostate specific antigen) acute March 16, 2024 9:38am [facility] Work Phone: 1(716) 858-326708-20-2024 NoteCardiovascular Medicine [facility] SUBJECTIVE Chief Complaint Patient presents with [...] gait and mobility Acute kidney failure (CMS/HCC) Colbert's disease (CMS/HCC) Atherosclerotic heart disease of circle coronary artery without angina pectoris Cancer (CMS/HCC) [...] injector, INJECT 0.5MG SUBCUTANEO (more content not included)...[facility] 01-06-2024 NotePt is here for dental clearance for tooth extraction. Pt has htn, hyperlipidemia. Since last visit pt had labs with lipids, carotid. Review of Systems All other systems reviewed and are negative.[facility] 06-24-2023 History of Present illness Narrative* Oscar Arvizu MD - 06/24/2023 10:23 AM ESTAssociated Problem(s): AKASH (obstructive sleep apnea) (Per PCP.) * Oscar Arvizu MD - 06/24/2023 10:22 AM ESTAssociated Problem(s): Cervical paraspinal muscle spasm (Continue home PT.) * Oscar Arvizu MD - 06/24/2023 10:22 AM ESTAssociated Problem(s): Cognitive decline (Continue current regimen.) * Oscar Arvizu MD - 06/24/2023 10:21 AM ESTAssociated Problem(s): Carotid stenosis, bilateral US carotids. * Oscar Arvizu MD - 06/24/2023 10:21 AM ESTAssociated Problem(s): Neurogenic pain Change GBP to 800 bid -> tid. * Oscar Arvizu MD - 06/24/2023 10:20 AM ESTAssociated Problem(s): Parkinson disease Stop med for now ad experimentum. If needs to restart, bid (before breakfast & before lunch). * Oscar Arvizu MD - 06/24/2023 10:00 AM EST Images from the original note were not included. Outpatient Progress Note Prev Appt: Visit date not found Chief Complaint Patient presents with Parkinson's Disease Assessment and Plan - Parkinson disease ([facility]) Stop med for now ad experimentum. [...] white matter lesion load US carotids (03/2020, [place]) - ~40% carotid bulbs CT head (03/2019, [place] ) - nl Testing Labs - protein [...] Failed Semeiology Circadian Noct oxim PSG PAPT ([place]) - AHI=2.2 @ [facility]WT Imaging Testing Surgery Physical Exam - General appearance, mentation, extraocular movements, facial strength and movement, hearing, upper and lower extremity strength and tone, sensation to gross testing, coordination, and gait are normalor at baseline unless noted below. HEENT - [...] SH - Past Medical History: Diagnosis Date Colbert's disease (CMS/HCC) Diabetes (CMS/HCC) GERD (gastroesophageal reflux disease) History of hepatitis B Hyperlipidemia (CMS/HCC) Hypertension (CMS/HCC) Prostate cancer (CMS/HCC) Sleep apnea Thyroid disease (CMS/HCC) Past Surgical History: Procedure Laterality Date APPENDECTOMY CARPAL TUNNEL RELEASE Bilateral CATARACT EXTRACTION 2004 CHOLECYSTECTOMY 2014 COLONOSCOPY 2009 NOSE SURGERY x 2 PLANTAR FASCIA SURGERY NH MEDICATION MANAGEMENT Disease:Colbert's Disease NH RELEASE THENAR MUSCLE Right 06/13/2014 thumb trigger [...] MOUTH IN THE MORNING then TAKE 1/2 (ONE-HALF)OF A TABLET BY MOUTH IN THE EVENING [...] file as of 06/24/2023. documented in this encounter[facility] [id number] Evaluation note* Encounter Date Diagnosis Assessment Notes Treatment Notes Treatment Clinical Notes Dec, Chronic kidney disea se, stage III (moderate) (ICD-10 - N18.30) He has a CKD due to the longstanding DM and HTN . His baseline serum creatinine is 1.5-1.6 mg/dL. I discussed with him the importance of good DM and HTN control to slow down the progression of CKD. Dec, Diabetes mellitus wi th chronic kidney disease [...] PTH are within the goal Dec, Hypomagnesemia (ICD- 10 - E83.42) He has hypomagnesemia due to the unclear etiology. I have prescribed him oral magnesium. [facility] Other 02-02-2023 Evaluation note* Encounter Date Diagnosis [...] not a candidate for Kerendia. 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 Continue current medication Jun, Secondary hyperparathyroidism (ICD-10 - N25.81) MBD parameters including calcium, phosphorus, vitamin D and PTH are within the goal Jun, Hypomagnesemia (ICD- 10 - E83.42) I have advised to take oral Magnesium every other day. [facility] Other 07-07-2022 Evaluation note* Encounter Date Diagnosis [...] advised him to contact his PCP or accounts receivable specialist. 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 Continue current medication Nov, Secondary hyperparathyroidism (ICD-10 - N25.81) MBD parameters including calcium, phosphorus, vitamin D and PTH are within the goal [facility] Other 01-13-2022 Evaluation note* Encounter Date Diagnosis [...] advised him to contact his PCP or accounts receivable specialist. May, Laz stewart cr kid I-IV (ICD-10 - I12.9) Blood pressure is controlled and he appears to be euvolemic. Continue current medication May, Secondary hyperparathyroidism (ICD-10 - N25.81) MBD parameters including calcium, phosphorus, vitamin D and PTH are within the goal May, Anemia of renal dise ase (ICD-10 - D63.1) Hemoglobin is within goal. We will check iron studies. [facility] Other 08-04-2021 NoteHNO ID: [id number] Author: Claudio Parker MD Service: ? Author [...] TUNNEL Bilateral - COLONOSCOP W/ OR W/O [facility] SPE[facility] Colonoscopy - CORONARY ARTERY BYPASS [...] CHF - Diabetes Sis (more content not included)...[facility] 11-24-2020 NoteHNO ID: [id number] Author: Claudio Parker MD Service: ? Author Type: Physician Type: Progress Notes Filed: 11/24/2020 2:10 PM Note Text: PATIENT NAME: Don Elkins DATE: 11/24/2020 PRIMARY CARE PHYSICIAN: Dr. Sal Sabillon/Marj Demarco, CUSTOMER SERVICE LEADER OTHER PHYSICIANS: Dr. Wilson, Dr. Cortez, Dr. Arvizu ([facility] Neurology) HPI: This is a 70 [...] HISTORY: PAST MEDICAL HISTORY Diagnosis Date - Colbert's disease (HCC) - Coronary arteriosclerosis - DVT (deep venous thrombosis) (HCC) - Hepatitis B - HTN (hypertension) - Hyperthyroidism - AKASH (obstructive sleep apnea) - Prostate cancer (HCC) - Pulmonary embolism (HCC) PAST SURGICAL HISTORY: PAST SURGICAL HISTORY Procedure Laterality Date - APPENDECTOMY - CARPAL TUNNEL Bilateral - COLONOSCOP W/ OR W/O [facility] SPE[facility] Colonos (more content not included)...[facility] No InformationMiami Twiigg Other Evaluation note* Diagnosis Parkinson's disease without [...] with cerebral infarction [facility] Diagnosis Onset Date Resolution Status Brigida disease acute CKD (chronic kidney disease) stage 3, GFR 30-59 ml/min acute [id number] acute Hypomagnesemia acute Secondary hyperparathyroidism acute Type 2 diabetes mellitus wit h diabetic chronic kidney disease acute [facility] Work Phone: Evaluation note* Diagnosis Onset Date Resolution Status Colbert disease acute CKD (chronic kidney disease) stage 3, GFR 30-59 ml/min acute [id number] acute Hypomagnesemia acute Secondary hyperparathyroidism acute Type 2 diabetes mellitus wit h diabetic chronic kidney disease acute Screening PSA (prostate specific antigen) acute [facility] Work Phone: Evaluation note* Diagnosis [...] insulin (CMS/HCC) [facility] Diagnosis Parkinson's disease without dyskinesia or [...] (restless legs syndrome) Restless legs syndrome (RLS) Type 2 diabetes mellitus with hyperglycemia, without long-term current use of insulin (CMS/HCC)- Primary Adrenal insufficiency (CMS/HCC) Glucocorticoid deficiency Acquired hypothyroidism (CMS/HCC) Unspecified hypothyroidism Encounter for dietary consultation Vitamin D deficiency Current chronic use of systemic steroids Osteopenia, unspecified location documented in this encounter [facility] Author Jeannie Farnsworth [facility] Note Date/Time May 21, 2024 10 :16am [facility] [address] [place] [address] Gastroenterology H&P Signed Patient: Don Elkins MR#: [id number] : 1950 Acct:[id number] Age/Sex: 73 / M Adm Date: 5 Loc: Room: Type: [facility] Attending Dr: Jeannie Farnsworth DO Copies to: DO Sal Collins MD~ Date of Service: 05/21/2024 HISTORY & PHYSICAL: Patient's history with special attention to the cardiovascular, pulmonary systems and the current problem was reviewed with the patient immediately prior to the procedure. Present medications and doses reviewed in the EMR. Allergies and pertinent laboratory tests were also reviewedat this time in the EMR. The physical examination, as below, was then performed. Indication, assessment and HPI: 73-year-old male who presents for colonoscopy for screening colonoscopy. Last colonoscopy 10 to 15 years ago Family history of GI malignancy? No PHYSICAL EXAMINATION General appearance: cooperative, NAD Skin: No jaundice, no rash or lesions Head: NCAT Eyes: Anicteric Neck: Supple Lungs: Normal respiratory effort, no use of accessory muscles Abdomen: Soft, nondistended Neuro: No focal deficits, Ox3. REVIEW OF SYSTEMS Constitutional: Denies malaise, fevers Cardiovascular: Denies chest pain, palpitations Respiratory: Denies shortness of breath, wheezing Gastrointestinal: As per HPI Genitourinary: Denies dysuria, polyuria Musculoskeletal: Denies joint swelling, joint stiffness Neurological: Denies confusion, numbness, tingling Endocrine: Denies fatigue Written informed consent obtained from the patient. Risks (including but not limited to perforation, infection, bloating, bleeding, need for emergent surgeryand loss of life), benefits and alternatives explained and questions answered. The patient verbalized understanding. Based on history patient is an appropriate candidate for the procedure. Jeannie Farnsworth DO Present medication and doses reviewed in the EMR Documented By: Jeannie Farnsworth DO 05/21/24 09 Signed By: <Electronically signed by Jeannie Farnsworth DO> 05/21/24 0901 [facility] Work Phone: History general Narrative - Reported* [...] Hospitalization History see above Hospitalization History pneumonia [facility] Other Hospital Discharge instructions Additional Instructions DISCHARGE INSTRUCTIONS FOR COLONOSCOPY WHAT TO EXPECT: - You may feel full, gassy or cramping after your procedure. In some cases, this may be from a few hours to a day. Walking may help relieve the discomfort. - If you have polyp(s) removed you may note some minor bloody discharge after your first bowel movements. - You should begin to recover from anesthesia within 1 hour of the procedure, however may feel groggy for the next 24 hours. DO's AND DON'Ts: - Call your doctor right away if you have a hard abdomen, severe pain, are passing lots of bright red blood or clots. - Call your doctor if you develop any rashes, hives or difficulty breathing. - Let your doctor know if you have not had a bowel movement by 3 days after your procedure. - If you take 81 mg aspirin for your heart it is safe to resume this medication. - If you take other blood thinner medications your doctor will instruct you when these can safely be resumed. - Do NOT drive for 24 hours. - Do NOT operate machinery such as power tools, [employer] mowers, snow blowers, sewing machines, etc. for 24 hours. - Avoid alcoholic beverages and drugs for allergies, nerves, or sleep. - Do NOT stay alone. Do NOT leave your child unattended. - Do NOT make important personal or business decisions or sign any legal documents. - Eat solid foods and drink liquids in smaller amounts than usual until normal appetite returns. If you should experience an upset stomach, liquids high in sugar content (soda, Nghia-Aid, non-acid juices) are recommended. - You can resume normal activities tomorrow. FOLLOW UP & RECOMMENDATIONS: -Please call the office and make a follow up appointment to see me as needed -Notify the doctor if you have any problems. -Repeat colonoscopy in 1 year with two day bowel preparation. -Follow up with PCP. -Office number [phone]. [facility] Work Phone: Summary Purpose Family History No Family History [...] FoundDocuments on File Type Date Recorded Patient Receiving Inspector Expl anation Advance Directives and Living Will Power of Therapy Manager Documents on File Type Date Recorded Patient Receiving Inspector Expl anation Advance Directives and Living Will Power of Therapy Manager Latest Code Status on File Code Status Date Activated Date Inactivated Comments Full Code 04/09/2019 5:50 PM Full Code 04/08/2019 1:06 AM 04/09/2019 4:44 PM Latest Code Status on File Code Status Date Activated Date Inactivated Comments Full Code 04/08/2019 1:06 AM Advance Directive Response Recorded Date/ Time Advance Directives No January 07, 2018 9:40am Advance Directive Response Recorded Date/ Time Advance Directives No January 07, 2018 8:40am Discharge Instructions * Instructions* Reid Mejia MD [...] your physician 11) Call your doctor at [phone] for an appointment (or follow up as [...] call OFFICE. The 24- hour phone is [phone] 13) If you are unable to contact your surgeon, in an emergency situation, go to the nearest hospital emergency room. 14) remove dressing and shower on Friday 15) no driving 16) resume Coumadin on Friday documented in this encounter* Instructions* Pj Stoner, ANDREA - 04/13/2019 Continue to follow blood thinner [...] Hospital Unit/Room#: W276/W276-01 Discharging Unit Phone Number: [phone] Emergency Contact: Extended Emergency Contact Information Primary Emergency Contact: Jacquelyn Elkins Address: [address] [place] [address] [place] [address] Relation: Spouse Past Surgical History: Past Surgical [...] DECOMPRESSION performed by Reid Mejia MD at [facility] OR NOSE SURGERY x 2 ORs PLANTAR FASCIA SURGERY Left 1990s PROSTATECTOMY 2011 Immunization History: There is no immunization history on file for this patient. 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 Cancer (HCC) C80.1 Restless [...] long-term current use of insulin ([facility]) E11.65, Z79.4 Isolation/Infection: Isolation No Isolation Patient [...] Independent Dressing Independent Toileting Independent Feeding Independent Firer Helper Independent Med Delivery whole Wound Care Documentation [...] (for information only, NOT a DME order): {EQUIPMENT:[id number]} Other Treatments: Patient's personal belongings (please select all that are sent with patient): glasses,cellphone, compliance professional, pants,shrit, slippers, jacket RN SIGNATURE: MANAGEMENT/SOCIAL WORK SECTION Inpatient Status Date: Readmission Risk Assessment Score: Readmission Risk Risk of Unplanned Readmission: 23 Discharging to Facility/ Agency Name: [facility] Address: Phone: Fax: Dialysis Facility (if applicable) Name: Address: Dialysis Schedule: Phone: Fax: Parts Casting Machine Operator/Groover Operator signature: ICIAN SECTION Prognosis: Good Condition at [...] Marcelina Camacho - 04/13/2019 11:[address] [facility] Acute Rehabilitation MUSIC THERAPY Date: 04/13/2019 Patient [...] everyone in rehab. But thank you anyhow. Marcelina Camacho [facility] 04/13/2019 * Pj Stoner RN - 04/13/2019 [...] Arana OTR/Atilio - 04/13/2019 8:56 AM EST [facility] OCCUPATIONAL THERAPY DISCHARGE SUMMARY- REHAB Date: 04/13/2019 Patient Name: Don Elkins Account: [id number] : 1950 (68 y.o.) Room: [place] [address] Diagnosis: Impaired mobility and ADL's d/t severe lumbar spinal stenosis Past Medical History: Diagnosis Date Acute non-ST elevation myocardial infarction (NSTEMI) ([facility]) Acute post-hemorrhagic anemia Acute respiratory insufficiency following thoracic surgery Bronchiectasis (HCC) CAD (coronary artery disease) 03/2018 Triple bypass Calculus of urinary tract Cancer ([facility]) prostatectomy Chronic back pain CKD (chronic kidney disease) COPD (chronic obstructive pulmonary disease) ([facility]) Diabetes mellitus (HCC) dx 2016 Diverticulosis of large intestine DVT (deep venous thrombosis) ([facility]) GERD (gastroesophageal reflux disease) Hx of blood clots 02/2018 PE Hyperlipidemia meds > 20 yrs Hypertension meds > 20 yrs Lumbar stenosis with neurogenic claudication Primary adrenocortical insufficiency ([facility]) Pulmonary embolism ([facility]) 06/23/2018 2018 / has been on Coumadin since / Pulmonary embolism without acute cor pulmonale ([facility]) Restless leg syndrome RLS (restless legs syndrome) [...] Assistance: Independent(No AD) Transfer Assistance: Independent Active Wirer: Yes Occupation: Retired 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, 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 Leisure & Hobbies: build and make things, golf, looking up in [place] Additional Comments: Per RECREATION COORDINATOR: Pt reports that his is responsible for [...] Limits Cognition Status: Cognition Overall Cognitive Status: [facility] Arousal/Alertness: Appropriate responses to stimuli Following [...] 6 Perception Status: Perception Overall Perceptual Status: [facility] Sensation Status: Sensation Overall Sensation Status: [facility] Vision and Hearing Status: Vision Vision: Impaired Vision Exceptions: Wears glasses at all times Hearing Hearing: Within functional limits UE Function Status: ROM: LUE AROM (degrees) LUE AROM : WF Left Hand AROM (degrees) Left Hand AROM: WF RUE AROM (degrees) RUE AROM : WF Right Hand AROM (degrees) Right Hand AROM: [...] 04/13/2019 8:41 AM EST Occupational Therapy Facility/Department: [facility] REH[facility] Daily Treatment Note NAME: Don Henrietta Elkins : 1950 Date of Service: 04/13/2019 Discharge Recommendations: Continue to assess pending progress Assessment Activity Tolerance Activity Tolerance: Patient Tolerated treatment well Safety Devices Safety Devices in place: Yes Type of devices: All fall risk precautions in place Patient Diagnosis(es): There were no encounter diagnoses. has a past medical history of Acute non-ST elevation myocardial infarction (NSTEMI) ([facility]), Acute post-hemorrhagic anemia, Acute respiratory insufficiency, Bronchiectasis ([facility]), CAD (coronary artery disease), Calculus of urinary tract, Cancer ([facility]), Chronic back pain, CKD (chronic kidney disease), COPD (chronic obstructive pulmonary disease) ([facility]), Diabetes mellitus ([facility]), Diverticulosis of large intestine, DVT (deep venous thrombosis) ([facility]), GERD (gastroesophageal reflux disease), Hx of blood clots, Hyperlipidemia, Hypertension, Lumbar stenosis with neurogenic claudication, Primary adrenocortical insufficiency ([facility]), Pulmonary embolism (HCC), Pulmonary embolism without acute cor pulmonale ([facility]), Restless leg syndrome, RLS (restless legs [...] 40 ADL trainin minutes YUDI Hughes Gail Garcia RN - 04/13/2019 8:35 AM EST [facility] INPATIENT REHABILITATION INDEPENDENT IN ROOM NOTE Room: [place] [address] Admit Date: 04/09/2019 Date: 04/13/2019 Patient Name: [...] AM EST Pt denied any pain. LBM 11/25/19. OT at HS was 154 , 1 units of Humalog given along with 20 units of Lantus. Pt slept well with CPAP. Will continue to monitor. * Jaspreet Frost, RECREATION COORDINATOR - 04/12/2019 2:54 PM EST Kae Hoyt [facility] Speech Language Pathology Discharge Report Patient: [...] pt's POC as deemed necesary by treating RECREATION COORDINATOR. Long-term Goals Timeframe for Long-term Goals: 3-5x/week [...] is no longer warranted Signature: Jaspreet Frost CCC-RECREATION COORDINATOR, Date: 04/12/2019, Time: 2:54 PM Sheila Yeh, CONTENT DEVELOPMENT SPECIALIST - 04/12/2019 1:01 PM [facility] - Acute Rehabilitation RECREATIONAL THERAPY Initial [...] supported services and groups include: [facility] Support Group, Pet Therapy, Individual Music [...] provided: Yes Learner: Patient Education provided: [facility] Support Group Method of Education: Discussion Evaluation [...] by: JOANIE NegroS Date: 04/12/2019 Jaspreet Park, DHIRAJ - 04/12/2019 11:00 AM STEFFI Hoyt [facility] Speech Language Pathology Treatment Note Don Henrietta Elkins 1950 R238/R238-01 Rehab Dx/Hx: Impaired gait [...] and time management with 75% accuracy. When RECREATION COORDINATOR requested pt double check his work, he [...] pt's POC as deemed necesary by treating RECREATION COORDINATOR. Pt was able to read at the paragraph level with 100% accuracy. No difficulty writing sentences or functional check writing tasks. Pt did say that his Dyslexia causes him to be slower with writing tasks. 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 Pt was able to complete a [...] 04/12/2019 10:31 AM EST Occupational Therapy Facility/Department: [facility] Daily Treatment Note NAME: Don Elkins [...] non-ST elevation myocardial infarction (NSTEMI) ([facility]), Acute post-hemorrhagic anemia, Acute respiratory insufficiency, Bronchiectasis ([facility]), CAD (coronary artery disease), Calculus of urinary tract, Cancer ([facility]), Chronic back pain, CKD (chronic kidney disease), COPD (chronic obstructive pulmonary disease) ([facility]), Diabetes mellitus ([facility]), Diverticulosis of large intestine, DVT (deep venous thrombosis) ([facility]), GERD (gastroesophageal reflux disease), Hx of blood clots, Hyperlipidemia, Hypertension, Lumbar stenosis with neurogenic claudication, Primary adrenocortical insufficiency ([facility]), Pulmonary embolism ([facility]), Pulmonary embolism without acute cor pulmonale ([facility]), Restless leg syndrome, RLS (restless legs [...] require any assistance. Patient used reachers to belt picker one inch cubes from the floor. [...] Minutes 30 ADL trainin minutes Brittney Summers OTR/Aitlio * Ishan Venegas PTA - 04/12/2019 9:10 AM EST Physical Therapy Rehab Treatment Note Facility/Department: [facility] Room: R238/R238-01 NAME: Don Elkins : [...] 04/12/19 at 9:54 AM * Lulu Lee [facility] - 04/12/2019 8:20 AM EST Clinical Pharmacy [...] device (slide rail) Walk: 6 - Modified [place] Walks at least 150 feet with an [...] the care of Dr. Reid Mejia at [facility] 04/05/2019. Patient is to transition slowly back [...] incentive spirometry Ellie Juárez D.O., PM&R Attending [phone] [facility] * Kisrten Dailey RN - 04/12/2019 5:59 AM EST [...] Cristiano Agosto PharmD 04/11/2019 12:35 PM * lAyx Collins PTA - 04/11/2019 12:11 PM EST Physical Therapy Rehab Treatment Note Facility/Department: [facility] Room: [place] [address] NAME: Don Elkins : 1950 (68 y.o.) [...] 04/11/19 at 12:13 PM * Sharmin Ronquillo OTR/L - 04/11/2019 10:14 AM EST Occupational Therapy Facility/Department: [facility] Daily Treatment Note NAME: Don Elkins [...] non-ST elevation myocardial infarction (NSTEMI) ([facility]), Acute post-hemorrhagic anemia, Acute respiratory insufficiency, Bronchiectasis ([facility]), CAD (coronary artery disease), Calculus of urinary tract, Cancer (HCC), Chronic back pain, CKD (chronic kidney disease), COPD (chronic obstructive pulmonary disease) ([facility]), Diabetes mellitus (HCC), Diverticulosis of large intestine, DVT (deep venous thrombosis) ([facility]), GERD (gastroesophageal reflux disease), Hx of blood clots, Hyperlipidemia, Hypertension, Lumbar stenosis with neurogenic claudication, Primary adrenocortical insufficiency ([facility]), Pulmonary embolism ([facility]), Pulmonary embolism without acute cor pulmonale ([facility]), Restless leg syndrome, RLS (restless legs [...] instruction well. Pt also instructed in double solid waste division supervisor lateral negotiation technique to utilize when back [...] progressive activities in PT, continue prophylaxis DARLYN judie, elevation and patient is on prophylactic Lovenox [...] the care of Dr. Reid Mejia at [facility] 04/05/2019. Patient is to transition slowly back [...] incentive spirometry Ellie Juárez D.O., PM&R Attending [phone] [facility] * Jaspreet Pleitez, OT - 04/11/2019 9:07 AM EST Occupational Therapy Facility/Department: [facility] Daily Treatment Note NAME: Don Henrietta [...] of Acute non-ST elevation myocardial infarction (NSTEMI) (HCC), Acute post-hemorrhagic anemia, Acute respiratory insufficiency, Bronchiectasis ([facility]), CAD (coronary artery disease), Calculus of urinary tract, Cancer (HCC), Chronic back pain, CKD (chronic kidney disease), COPD (chronic obstructive pulmonary disease) ([facility]), Diabetes mellitus (HCC), Diverticulosis of large intestine, DVT (deep venous thrombosis) ([facility]), GERD (gastroesophageal reflux disease), Hx of blood clots, Hyperlipidemia, Hypertension, Lumbar stenosis with neurogenic claudication, Primary adrenocortical insufficiency ([facility]), Pulmonary embolism ([facility]), Pulmonary embolism without acute cor pulmonale ([facility]), Restless leg syndrome, RLS (restless legs [...] EST Physical Therapy Rehab Treatment Note Facility/Department: [id number]: Don Elkins : 1950 (68 [...] instruction well. Pt also instructed in double solid waste division supervisor lateral negotiation technique to utilize when back [...] 2: Pt to complete TUG in 13.5m/s marine oil terminal 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 goals [facility]CI goal 1: Pt to complete all bed mobility with indep marine oil terminal 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 goal 2: Pt to complete transfers with indep marine oil terminal 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 goal 3: pt to ambulate >150 ft with no AD independently marine oil terminal 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 goal 4: pt to navigate 12 steps with 1 HR mod indep Therapy Time: Individual Time In 1300 Time Out 1330 Minutes 30 Timed Code Treatment Minutes: 30 Minutes(gait 20min; therex 10min) Sera Escalera, PT, 04/10/19 at 2:46 PM * Rox Vergara OTA - 04/10/2019 2:23 PM EST Occupational Therapy Facility/Department: [facility] Daily Treatment Note NAME: Don Elkins [...] of Acute non-ST elevation myocardial infarction (NSTEMI) (HCC), Acute post-hemorrhagic anemia, Acute respiratory insufficiency, Bronchiectasis [...] 30 minutes YUDI Hughes * Wendy Devlin RECREATION COORDINATOR - 04/10/2019 12:47 PM EST [facility] Facility/Department: [facility] Speech Language Pathology Initial Speech/Language/Cognitive Assessment NAME:Don Elkins : 1950 (68 y.o.) [id number] AD[facility] DATE: 04/09/2019 PATIENT DIAGNOSIS(ES): Impaired gait and mobility [R26.89] No chief complaint on file. Patient Active Problem List Diagnosis Date Noted Iron deficiency anemia 04/09/2019 Meralgia paresthetica 04/09/2019 Obstructive sleep apnea syndrome 04/09/2019 Abnormality of gait and mobility due to Impaired Mobility and ADL's due to Severe Lumbar Spinal Stenosis. [facility] admit 04/09/19. 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 Cancer (HCC) 03/30/2019 Restless [...] DECOMPRESSION performed by Reid Mejia MD at [facility] OR NOSE SURGERY x 2 ORs PLANTAR FASCIA SURGERY Left PROSTATECTOMY 2011 DATE ONSET: 04/09/2019 Date of Evaluation: 04/10/2019 Evaluating Therapist: Wendy Devlin, RECREATION COORDINATOR Assessment: Cognitive Diagnosis: Pt presents with moderate cognitive-linguistic deficits characterized by high-level word finding, paragraph comprehension, short-term memory, verbal reasoning, and problem solving deficits Recommendations: Requires RECREATION COORDINATOR Intervention: Yes Duration/Frequency of Treatment: 3-5x/week of [...] pt's POC as deemed necesary by treating RECREATION COORDINATOR. 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 Leisure & Hobbies: wood working. Additional [...] assist Memory: 3- Moderate assist Therapy Time RECREATION COORDINATOR Individual Minutes Time In: 1020 Time Out: 1052 Minutes: 32 Signature: * Seth Moeller OTR/L - 04/10/2019 12:39 PM EST The patient completed the [facility] Mental Status (UMS) Examination on [...] to assess need for further action. * eSra Escalera, PT - 04/10/2019 12:36 PM EST Facility/Department: [facility] Rehabilitation Initial Assessment: Physical Therapy Room: [facility]/[id number] NAME: Don Elkins : 1950 Date of Service: 04/10/2019 Rehab Diagnosis(es): Impaired Mobility and ADLs d/t severe lumbar spinal stenosis Patient Active Problem List Diagnosis Date Noted Iron deficiency anemia 04/09/2019 Meralgia paresthetica 04/09/2019 Obstructive sleep apnea syndrome 04/09/2019 Abnormality of gait and mobility due to Impaired Mobility and ADL's due to Severe Lumbar Spinal Stenosis. [facility] admit 04/09/19. 04/09/2019 CKD (chronic kidney disease) 04/08/2019 Hyperkalemia 04/08/2019 Sinus tachycardia 04/08/2019 Metabolic acidosis, normal anion gap (NAG) 04/08/2019 Nausea and vomiting 04/08/2019 Postoperative fever 04/08/2019 Elevated bilirubin 04/08/2019 Type 2 diabetes mellitus with hyperglycemia, with long-term current use of insulin (HCC) 04/08/2019 Sepsis ([facility]) 04/07/2019 Spinal stenosis of lumbar region with radiculopathy 03/30/2019 Lumbar spondylosis 03/30/2019 Colbert's disease ([facility]) 03/30/2019 Cancer ([facility]) 03/30/2019 Restless leg syndrome 03/30/2019 Former [...] non-ST elevation myocardial infarction (NSTEMI) ([facility]) Acute post-hemorrhagic anemia Acute respiratory insufficiency following thoracic surgery Bronchiectasis (HCC) CAD (coronary artery disease) 03/2018 Triple bypass Calculus of urinary tract Cancer (HCC) prostatectomy Chronic back pain CKD (chronic kidney disease) COPD (chronic obstructive pulmonary disease) (HCC) Diabetes mellitus (HCC) dx 2016 Diverticulosis of large intestine DVT (deep venous thrombosis) ([facility]) GERD (gastroesophageal reflux disease) Hx of [...] DECOMPRESSION performed by Reid Mejia MD at [facility] OR NOSE SURGERY x 2 ORs PLANTAR [...] Assistance: Independent(No AD) Transfer Assistance: Independent Active Wirer: Yes Occupation: 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 Pt also instructed in double solid waste division supervisor lateral negotiation technique to utilize when back [...] 2: Pt to complete TUG in 13.5m/s FCI goals FCI goal 1: Pt to complete all bed mobility with indep marine oil terminal 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 goal 2: Pt to complete transfers with indep marine oil terminal 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 goal 3: pt to ambulate >150 ft with no AD independently marine oil terminal 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 goal 4: pt to navigate 12 steps [...] Recommended toilet hygeine wand, sock aid and flare breaker. Transfer care to lead OTR Assessment Performance [...] non-ST elevation myocardial infarction (NSTEMI) ([facility]), Acute post-hemorrhagic anemia, Acute respiratory insufficiency, Bronchiectasis ([facility]), CAD (coronary artery disease), Calculus of urinary tract, Cancer ([facility]), Chronic back pain, CKD (chronic kidney disease), COPD (chronic obstructive pulmonary disease) ([facility]), Diabetes mellitus ([facility]), Diverticulosis of large intestine, DVT (deep venous thrombosis) ([facility]), GERD (gastroesophageal reflux disease), Hx of blood clots, Hyperlipidemia, Hypertension, Lumbar stenosis with neurogenic claudication, Primary adrenocortical insufficiency ([facility]), Pulmonary embolism ([facility]), Pulmonary embolism without acute cor pulmonale ([facility]), Restless leg syndrome, RLS (restless legs [...] Assistance: Independent(No AD) Transfer Assistance: Independent Active Wirer: Yes 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 Speech Language Pathology Clinical Bedside Swallow Evaluation NAME:Don Elkins : 1950 (68 y.o.) ROOM: [place] [address] ADMISSION DATE: 04/09/2019 PATIENT DIAGNOSIS(ES): Impaired gait and mobility [R26.89] No chief complaint on file. Patient Active Problem List Diagnosis Date Noted Iron deficiency anemia 04/09/2019 Meralgia paresthetica 04/09/2019 Obstructive sleep apnea syndrome 04/09/2019 Abnormality of gait and mobility due to Impaired Mobility and ADL's due to Severe Lumbar Spinal Stenosis. [facility] admit 04/09/19. 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 Cancer (HCC) 03/30/2019 Restless [...] non-ST elevation myocardial infarction (NSTEMI) ([facility]) Acute post-hemorrhagic anemia Acute respiratory insufficiency [...] adrenocortical insufficiency (HCC) Pulmonary embolism ([facility]) 06/23/2018 2018 / has been on Coumadin since / Pulmonary embolism without acute cor pulmonale ([facility]) Restless leg syndrome RLS (restless legs syndrome) [...] DECOMPRESSION performed by Reid Mejia MD at [facility] OR NOSE SURGERY x 2 ORs PLANTAR FASCIA SURGERY Left PROSTATECTOMY 2011 No Known Allergies DATE ONSET: 04/09/2019 Date of Evaluation: 04/10/2019 Evaluating Therapist: Wendy Devlin, RECREATION COORDINATOR Recommended Diet and Intervention Diet Solids Recommendation: [...] Within functional limits/Modified independence Treatment Plan Requires RECREATION COORDINATOR Intervention: No Duration/Frequency of Treatment: no f/u [...] got pain pills this morning. Therapy Time RECREATION COORDINATOR Individual Minutes Time In: 1052 Time Out: 1100 Minutes: 8 Signature: * Cristiano Agosto, [facility] - 04/10/2019 12:14 PM EST Clinical Pharmacy [...] Mejia to clarify order/referral. * Lulu Lee [facility] - 04/09/2019 1:12 PM EST Clinical Pharmacy [...] Daily PT/INR until stable within therapeutic range. Lluu Lee PharmD 04/09/2019 1:12 PM * Cinthya Alcazar, PT - 04/09/2019 10:42 AM EST Physical Therapy Med Surg Initial Assessment Facility/Department: [address] TELE Room: [place] [id number]- NAME: Don Elkins : 1950 (68 y.o.) [...] non-ST elevation myocardial infarction (NSTEMI) ([facility]) Acute post-hemorrhagic anemia Acute respiratory insufficiency [...] DECOMPRESSION performed by Reid Mejia MD at [facility] OR NOSE SURGERY x 2 ORs PLANTAR [...] Assistance: Independent(No AD) Transfer Assistance: Independent Active Wirer: Yes Occupation: Retired Additional Comments: Spouse is also limited by pain in her back; pt. at times has to help lift her.Has youth minister occasionally. 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 FCI goal 1: indep with bed mobility utilizing log roll FCI goal 2: pt to be indep with transfers [facility]CI goal 3: pt to ambulate >150 ft with no AD independently [facility] goal 4: pt to navigate 12 steps with 1 HR mod indep [facility] (6 CLICK) BASIC MOBILITY AM-PAC Inpatient Mobility Raw Score : 17 Therapy Time: Individual Time In 0941 Time Out 0955 Minutes 14 Cinthya Alcazar PT, 04/09/19 at 10:42 AM * Ny Arana OTR/L - 04/09/2019 10:15 AM EST [facility] OCCUPATIONAL THERAPY EVALUATION - ACUTE NAME: Don Elkins : 1950 (68 y.o.) CODE STATUS: Full Code Room: [place] [address] Date of Service: 04/09/2019 Patient Diagnosis(es): Sepsis [...] 06/23/2018 Coronary arteriosclerosis 05/25/2018 Acute kidney failure ([facility]) 04/07/2018 Major depressive disorder, single episode, unspecified 04/07/2018 Past Medical History: Diagnosis Date Acute non-ST elevation myocardial infarction (NSTEMI) ([facility]) Acute post-hemorrhagic anemia Acute respiratory insufficiency [...] adrenocortical insufficiency (HCC) Pulmonary embolism ([facility]) 06/23/2018 2018 / has been on [...] Mejia MD at [facility] NOSE SURGERY 1990s x 2 ORs PLANTAR FASCIA SURGERY Left 1990s PROSTATECTOMY 2012 Restrictions Restrictions/Precautions: Fall Risk Position Activity Restriction [...] Assistance: Independent(No AD) Transfer Assistance: Independent Active Wirer: Yes Occupation: Retired Additional Comments: Spouse is also limited by pain in her back; pt. at times has to help lift her.Has youth minister occasionally. Spouse uses adaptive mobility equipment OBJECTIVE: Orientation Status: Orientation Overall Orientation Status: Within Functional Limits Observation: Observation/Palpation Posture: Fair Observation: Pt. alert and attentive Cognition Status: Cognition Overall Cognitive Status: [facility] Perception Status: Perception Overall Perceptual Status: [facility] Sensation Status: Sensation Overall Sensation Status: [facility] Vision and Hearing Status: Vision Vision: [...] from home with spouse who presents to [facility] with the above deficits which impact [...] 04/08/19 0323 INR 1.2 1.2 Recent Labs 04/07/19 1830 CKTOTAL 255* TROPONINI <0.010 Urinalysis: Lab Results [...] Code PT/OT Eval * Rene Nobles, [facility] - 04/08/2019 4:25 AM EST Pharmacy Note [...] intestine w/o perforation or abscess w/o bleeding Colbert's disease (HCC) Cancer (HCC) Restless leg syndrome [...] 200 ml. Perfect serve sent to [employer] [employer] to request nausea meds. Zofran cannot be given until 0700 0459 medicated pt for fever and nausea. Sent respiratory cx to lab. 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 + Last dose Coumadin 03/30/2019 / per Dr. Arcos, automotive design layout drafter thru [facility]. + Lovenox bridge to start 03/31/2019 as ordered thru [facility] ( [facility] ) phone # [phone]. + Scientific Database Curator is Dr. Austen Arcos / phone # [phone] / [facility] / Last appt 11/2018/ paper copy of appt notes on chart. + Hx of brigida disease / accounts receivable specialist Dr. Xavier Lake / [facility] / phone # [phone]. / paper copy of last appt notes dated 01/06/2019 on chart. documented in this encounter Assessments Diagnosis Post-op pain- Primary Other acute postoperative pain Diagnosis Abnormality of gait and mobility due to Impaired Mobility and ADL's due to Severe Lumbar Spinal Stenosis. [facility] admit 04/09/19.- Primary Abnormality of [...] hypertension Diagnosis SIRS (systemic inflammatory response syndrome) (HCC)- Primary Systemic inflammatory response syndrome, unspecified Dehydration TIFFANI (acute kidney injury) (HCC) Acute kidney failure, unspecified Bronchitis Bronchitis, not specified as acute or chronic Elevated TSH Other abnormal blood chemistry Sepsis (HCC) CKD (chronic kidney disease) Chronic kidney disease, unspecified Metabolic acidosis, normal anion gap (NAG) Acidosis Nausea and vomiting Nausea with vomiting Postoperative fever Postprocedural fever Elevated bilirubin Disorders of bilirubin excretion Type 2 diabetes mellitus with hyperglycemia, with long-term current use of insulin (HCC) Colbert's disease (HCC) Glucocorticoid deficiency Lumbar spondylosis Lumbosacral spondylosis without myelopathy Major depressive disorder, single episode, unspecified Abnormality of gait and mobility due to Impaired Mobility and ADL's due to Severe Lumbar Spinal Stenosis. [facility] admit 04/09/19. Abnormality of gait CAD (coronary artery disease) Coronary atherosclerosis of unspecified type of vessel, circle or graft HTN (hypertension) Unspecified essential hypertension [...] abuse and follow-up frequently with his paint line operator. ROS x10: The patient also complains of [...] - Patient independently transfers Walk: 7- Complete [place] Walks at least 150 feet Independently with no assistive device Distance Walked: 300' Stairs: 6 - Modified [place] Safely goes up and down at least [...] encouraged tocontinue to discuss discharge plans with child support case officer. Complex Physical Medicine & Rehab Issues Assess & Plan: 1. Severe abnormality of gait and mobility and impaired self-care and ADL's secondary to progressive severe spinal canal stenosis. Functional and medical status have improved nicely status [facility] therefore patient is scheduled for discharge [...] therapy, Lidoderm, K-pad prn. I reviewed her [place] prescription monitoring service data sheetsin hopes of [...] the care of Dr. Reid Mejia at [facility] 04/05/2019. Patient is to transition slowly back [...] incentive spirometry Ellie Juárez D.O., PM&R Attending [phone] [facility] documented in this encounter* Gerardo Fitzpatrick MD [...] male that was admitted and treated at [facility] for the following medical issues: Active [...] by the following consultants while admitted to [facility]: Consults: IP CONSULT TO NEUROSURGERY IP [...] Discharge Medications: Don Elkins Home Medication Instructions MARILUZ:[id number] Printed on:04/09/19 1200 Medication Information cephALEXin (KEFLEX) 500 MG capsule [...] tablet Take 1 tablet by mouth daily [place]-3 Fatty Acids (FISH OIL) 600 MG CAPS [...] Take 5 mg by mouth daily Indications: I-QZ-Osg warfarin (COUMADIN) 7.5 MG tablet Take 7.5 mg by mouth daily Indications: M-W-F Disposition: If discharged to Home, Any [facility] needs that were indicated and/or required [...] Referral Specialty Diagnoses / Procedures Referred By Jorden jimenez Referred To Contact Radiology Diagnoses Carotid stenosis, bilateral Stroke, lacunar (CMS/HCC) Cerebral artery occlusion with cerebral infarction (CMS/HCC) Procedures Vascular US carotid artery duplex bilateral Luh, Oscar Shrestha MD [address] [address] Referral ID Status Reason Start Date Expiration Date Visits Requested Visits Authorized [id number] Authorized Perform Procedure 06/24/2023 12/21/2023 1 1 Chief Complaint and Reason for Visit Chief Complaint RENAL 6 month follow up Reason for Visit Brigida disease CKD (chronic kidney disease) stage 3, GFR 30-59 ml/min [id number] Hypomagnesemia Secondary 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 Chief Complaint RENAL 6 MONTH F/U Reason for Visit Colbert disease CKD (chronic kidney disease) stage 3, GFR 30-59 ml/min [id number] Hypomagnesemia Secondary 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 Chief Complaint RENAL 6 MONTH F/U Wellness Reason for Visit Colbert disease CKD (chronic kidney disease) stage 3, GFR 30-59 ml/min [id number] Hypomagnesemia Secondary 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 Screening PSA (prostate specific antigen) Chief Complaint Admit Date Wellness March 16, 2024 9 :38am CC Adult Risk Stratification February 11:10am Screening May 21, 2024 7: 33am Screening May 21, 2024 9: 01am Reason for Visit Admit Date Colbert disease March 16, 2024 9 :38am Encounter for screening colonoscopy Octo 2023 9:38am Hypertensive chronic kidney disease with stage 1 through stage 4 chronic ki March 16, 2024 9:38am Medicare annual wellness visit, subseque nt March 16, 2024 9:38am AKASH (obstructive sleep apnea) March 162023 9:38am Screening PSA (prostate specific antigen ) March 16, 2024 9:38am Chief Complaint Admit Date Wellness March 16, 2024 9 :38am CC Adult Risk Stratification February 11:10am Screening May 21, 2024 7: 33am Screening May 21, 2024 9: 01am Amb Documentation May 24, 2024 3: 46pm K62.5 June 01, 2024 1 1:32am Additional Source Comments (unrecognized sect ion and content) No Status Records FoundNo Status Records FoundNo Status Records FoundNo Status Records FoundNo Status Records FoundNo Status Records FoundNo Status Records FoundNo Status Records FoundNo Status Records FoundNo Status Records FoundNo Status Records Found INFORMATION SOURCE (unrecogn ized section and content) DATE CREATED AUTHOR 04/25/2018 [facility] DATE CREATED AUTHOR AUTHOR'S ORGANIZ ATION 05/02/2018 [employer] DATE CREATED AUTHOR AUTHOR'S ORGANIZ ATION 2018 [facility] DATE CREATED AUTHOR AUTHOR'S ORGANIZ ATION 04/13/2019 [facility] DATE CREATED AUTHOR AUTHOR'S ORGANIZ ATION 02/13/2021 [facility] DATE CREATED AUTHOR AUTHOR'S ORGANIZ ATION 05/05/2021 [facility] DATE CREATED AUTHOR AUTHOR'S ORGANIZ ATION 05/21/2021 [facility] DATE CREATED AUTHOR AUTHOR'S ORGANIZ ATION 06/17/2022 [facility] DATE CREATED AUTHOR AUTHOR'S ORGANIZ ATION 05/30/2024 [facility] DATE CREATED AUTHOR AUTHOR'S ORGANIZ ATION 06/04/2024 [facility] DATE CREATED AUTHOR AUTHOR'S ORGANIZ ATION 06/25/2024 [facility] Reason for Visit (unrecogniz ed section and content) Status Reason Specialty Diagnoses / Procedures Referre d By Contact Referred To Contact Diagnoses SPINAL STENOSIS,, RADICULOPATHY, SPONDYLOSIS Procedures NH LAMNOTMY W/DCMPRSN NRV EACH ADDL CRVCL/LMBR L 3, L 4 LUMBAR DECOMPRESSION, 1 HOUR/ 1 C-ARM Reid Mejia MD [address], [address] [place] [address] [facility] Reason Comments Post-op Problem Had surgery friday o low back. Pt has intermittent fever, vomiting and redness around the incision Status Reason Specialty Diagnoses / Procedures Referred By Contact Referred To Contact Diagnoses Sepsis (HCC) [place] [address] [facility] [address] [place] [address] [facility] Reason Comments Parkinson's Disease Reason Comments Diabetes Follow-up Care Teams (unrecognized sec tion and content) Team Status: Active Member Role Status Dates Sal Sabillon MD Primary Care Provider Active Team Status: Inactive Member Role Status Dates Sal Sabillon MD Primary Care Provide r, Attending Provider Active Start: March 16, 2024 End: March 16, 2024 Team Status: Active Member Role Status Dates Sal Sabillon MD Primary Care Provide r, Attending Provider Active Start: March 17, 2024 Team Status: Active Member Role Status Dates Sal Sabillon MD Primary Care Provider Active Start: May 13, 2024 Kristen Hager MD Attending Provider Active Sta rt: May 13, 2024 Team Status: Active Member Role Status Dates Sal Sabillon MD Primary Care Provider Active Start: May 14, 2024 Shaikh Merrill MD Attending Provider Active Sta rt: May 14, 2024 Team Status: Active Member Role Status Dates Sal Sabillon MD Primary Care Provider Active Start: May 15, 2024 Shaikh Merrill MD Attending Provider Active Sta rt: May 15, 2024 Team Status: Inactive Member Role Status Dates Sal Sabillon MD Primary Care Provider Active Start: May 21, 2024 End: May 21, 2024 Jeannie L Ly , DO Attending Provider Active St art: May 21, 2024 End: May 21, 2024 Team Status: Active Member Role Status Dates Sal Sabillon MD Primary Care Provider Active Start: May 21, 2024 Jeannie L Ly , DO Attending Provider, Other Provider Active Start: May 21, 2024 License Examiner Relationship Specialty Start Date End Date Sal Sabillon MD [address] [place] [phone] PCP - General Family Medicine 10/08/22 License Examiner Relationship Specialty Start Date End Date Sal Sabillon MD [address] [place] [address] PCP - General Family Medicine 10/08/22 Team [...] January 29, 2024 End: January 29, 2024 License Examiner Relationship Specialty Start Date End Date Sal Sabillon MD PCP - General Family Medicine 10/08/22 License Examiner Relationship Specialty Start Date End Date Sal Sabillon MD [address] [place] [facility] [place] [address] PCP - General Family Medicine 05/05/24 License Examiner Relationship Specialty Start Date End Date Sal Sabillon MD [address] [place] [facility] [place] [facility] [place] [phone] PCP - General [facility] 05/05/24 License Examiner Relationship Specialty Start Date End Date Sal Sabillon MD [address] [facility] [place] [facility] [place] [phone] PCP - General Family [facility] 05/05/24 Team Status: Active Member Role Status Dates Sal Sabillon MD Primary Care Provider Active Start: May 24, 2024 AZALIA Chao Attending Provider Active S tart: May 24, 2024 Team Status: Inactive Member Role Status Dates Sal Sabillon MD Primary Care Provider Active Start: June 01, 2024 End: June 01, 2024 Donald Islas MD Attending Provider Active S tart: June 01, 2024 End: June 01, 2024 Goals (unrecognized section and content) Goals [...] BE BASED ON THE PRIMARY CLINICAL RECORDS. [employer] [facility]. provides no warranty or guarantee of the accuracy or completeness of information in this document.
[2024-07-07] MEDS: REGADENOSON 0.4 MG/5 ML SYRINGE IV (09:07)
--- NOTE | 2024-07-07 09:07 | PC.NURSE ---
Nursing Note Cardiac Stress Test Reviewed: Medication, allergies and patient history reviewed. Stress Test: [x ] Patient tolerated stress test well. [ ] Patient unable to tolerate walking on treadmill. Switched to Lexiscan stress test. [ x] No chest pain noted per patient [ ] Chest pain that resolved prior to leaving stress lab. [x ] No dyspnea noted. [ ] Dyspnea that resolved prior to leaving stress lab. [ x Patient left stress lab asymptomatic and hemodynamically stable. [ ] Patient taken to the Emergency Room due to non-resolving symptoms following stress test. [ ] Patient achieved target heart rate. [ ] Patient unable to achieve target heart rate. [ ] Aminophylline administered as reversal agent to Lexiscan (Regadenoson). [ ] Nitro administered. Nursing Comments:
== END 2024-07-07 06:49 | disposition home or self-care (01) ==
LOC: NM 06:48
PROVIDERS: PCP Family Medicine; Visit Provider Internal Medicine Interventional Cardiology
DX: I25.10 Atherosclerotic heart disease of native coronary artery without angina pectoris (principal)
CPT/HCPCS: 78452; 93017; A9500; J2785

== ENCOUNTER 2024-08-17 10:36 | Outpatient (OUT) | payer MEDICARE, SELFPAY ==
[2024-08-17 11:56] LABS: Bilirubin Urine NEGATIVE (NEGATIVE); Blood Urine NEGATIVE (NEGATIVE); Clarity Urine CLEAR (CLEAR); Color Urine YELLOW (YELLOW); Glucose Urine UA 500 mg/dL (NEGATIVE); Ketones Urine TRACE mg/dL (NEGATIVE); Leukocyte Esterase Urine NEGATIVE (NEGATIVE); Nitrite Urine NEGATIVE (NEGATIVE); Protein Urine NEGATIVE (NEG/TRACE); Specific Gravity Urine 1.025 (1.005-1.025); Urobilinogen Urine 0.2 EU/dL (0.2-1.0)
[2024-08-17 12:04] LABS: Bacteria Urine NONE SEEN #/HPF (NONE SEEN); Cast Seen? NONE SEEN #/LPF (NONE SEEN); Crystals Seen? None Seen #/HPF (None Seen); Mucus Urine TRACE (NONE SEEN); RBC Urine NONE SEEN #/HPF (0-2); Squamous Epithelial Cell Urine RARE #/LPF (NONE/RARE); WBC Urine 0-2 #/HPF (NONE SEEN)
[2024-08-17 12:11] LABS: Creatinine Urine Random 191.65 mg/dL (20.00-300.00); Protein Creatinine Ratio Urine 0.08; Total Protein Urine Random 15.6 mg/dL (<=11.9)
[2024-08-17 12:34] LABS: Hematocrit 42.4 % (42.0-54.0); Hemoglobin 14.4 g/dL (14.0-18.0); Mean Corpuscular Hemoglobin 31.2 pg (25.9-34.0); Mean Platelet Volume 12.7 fL (9.5-13.5); Platelet Count 228 10^3/uL (150-450); Red Blood Count 4.61 10^6/uL (4.70-6.10); Red Cell Distribution Width 12.2 % (11.0-15.0); White Blood Count 7.8 10^3/uL (4.0-11.0)
[2024-08-17 13:04] LABS: Albumin Level 3.3 g/dL (3.4-5.0); BUN Creatinine Ratio 13.2; Calcium 8.7 mg/dL (8.5-10.1); Carbon Dioxide 28.5 mmol/L (21.0-32.0); Chloride 100 mmol/L (98-107); Estimated GFR (African America 43 (>=60 mL/min/1.73m^2); Estimated GFR (Non-African Ame 35 (>=60 mL/min/1.73m^2); Glucose 289 mg/dL (74-106); Magnesium 1.7 mg/dL (1.8-2.4); Phosphorus 3.5 mg/dL (2.6-4.7); Potassium 4.5 mmol/L (3.5-5.1); Sodium 137 mmol/L (136-145); Uric Acid 6.2 mg/dL (3.5-7.2)
[2024-08-17 13:05] LABS: Percent Iron Saturation 34.3 %
[2024-08-18 09:09] LABS: PTH, Intact 59 pg/mL (15-65)
== END 2024-08-17 10:37 | disposition home or self-care (01) ==
LOC: LAB 10:42
PROVIDERS: PCP Family Medicine; Visit Provider Internal Medicine
DX: E83.42 Hypomagnesemia (principal); N25.81 Secondary hyperparathyroidism of renal origin; I12.9 Hypertensive chronic kidney disease with stage 1 through stage 4 chronic kidney disease, or unspecified chronic kidney disease; E11.22 Type 2 diabetes mellitus with diabetic chronic kidney disease; N18.30 Chronic kidney disease, stage 3 unspecified
CPT/HCPCS: 36415; 80069; 81001; 82306; 82570; 83540; 83550; 83735; 83970; 84156; 84550; 85027

== ENCOUNTER 2025-03-14 08:19 | Outpatient (OUT) | payer MEDICARE, SELFPAY ==
--- OUTSIDE RECORDS SUMMARY | 2017-06-18 10:15 | XMS_ITS | Continuity of Care Document ---
Author Organization [facility] Address [address] [place] [address] Phone Care Team Providers Care Registered Nurse Supervisor Name Role Phone Buzz Brennan MD Unavailable Unavailable Allergies, Adverse Reactions, Alerts Substance Reaction Status Criticality No Known Allergies Active No Inform ation Medications Medication Instructions Dosage Effective Dates (start - stop) Status Comments tramadol 50 mg tablet take 1 - 2 tablet by oral route every 12 hours as needed for pain 50 MG - Active baclofen 10 mg tablet take 1 tablet by o ral route 2 times every day for spasm and pain 10 MG - Active metformin 500 mg tablet take 1 tablet by oral route 2 times every day with morning and evening meals 500 MG - Active lisinopril 20 mg tablet take 1 tablet by oral route every day 20 MG - Active simvastatin 20 mg tablet take 1 tablet by oral route every day in the evening 20 MG - Active hydrocortisone 20 mg tablet - Active fludrocortisone 0.1 mg tablet take 1 tablet by oral route every day 0.1 MG - Active aspirin 81 mg chewable tablet chew 1 tablet by oral route every day 81 MG - Active citalopram 20 mg tablet take 1 tablet by oral route every day 20 MG - Active multivitamin tablet take 1 tablet by ora l route every day with food - Active omeprazole 40 mg capsule,delayed release take 1 capsule by oral route every day before a meal 40 MG - Active CoQ-10 100 mg capsule - Active Calcium 500 + D 500 mg (1,250 mg)-200 unit tablet - Active Fish Oil 100 mg-160 mg-1,000 mg capsule - Active pramipexole 0.5 mg tablet take 1 tablet by oral route 3 times every day 0.5 MG - Active Bydureon 2 mg/0.65 mL subcutaneous pen injector inject 0.65 milliliter by subcutaneous route every 7 days in the abdomen, thighs, or outer area of upper arm rotating injectionsites - Active levothyroxine 150 mcg tablet take 1 tablet by oral route every day 150 MCG - Active Procedures Procedure Date Lumbar EMELINA Including Fluoro [id number] Office/outpt Visit [facility] MRI LUMBAR SPINE X-RAY LUMBAR BENDING MIN 4 VIEWS/FLEXION /EXTENSION Office/outpt New Advance Directives Directive Yes / No Effective Date File Name Resuscitation Not Answered N/A N/A Other Directive No N/A N/A WARNING:The information contained in this section is historical and is provided for information only and does not constitute a legal document or any assurance that the information is still accurate. Please verify the information with the rodriguez of the legal document before using it for clinical purposes. Encounters Encounter Description Practice Location Reason(s) For Visit Diagnoses Date Provider Providers Copied on Encounter [facility], [address], [place], [place], [id number], [place] tel:[phone] [facility] Lower back pain (chief complaint) Body mass index (BMI) 39.0-39.9, adultLow back painOther intervertebra l disc degeneration, lumbar regionRadicul opathy, lumbar regionSpinal stenosis, lumbosacral region [address], [place], [place], [id number], [place]. tel:[phone] Office/outpt Visit [facility], [address], [place], [place], [id number], [place] tel:[phone] [facility] low back pain (chief complaint) Low back painOther intervertebra l disc degeneration, lumbar region 7 No Information [facility], [address], [place], [place], [id number], [place] tel:[phone] [facility] No Information 7 No Information [facility], [address] [place], [place], [id number], [place] tel:[phone] [facility] No Information No Information [facility], [address] [place], [place], [id number], [place] tel:[phone] [facility] No Information No Information Office/outpt New [facility], [address] [place], [place], [id number], [place] tel:[phone] [facility] low back pain (chief complaint) Low back painRadiculop athy, lumbar regionBody mass index (BMI) 39.0-39.9, adult No Information Family History Family Member Type Diagnosis Age At Onset No Information Payers Payer name Insurance type Covered democrat ID Authoriza tion(s) Medicare Part B [id number] [facility] [id number] Social History Type Description Quantity Date Captured Comments Alcohol Use Details No Caffeine Use Details coffee 2 cups per day Tobacco Use Status Smoking Status Former smoker Sex Male Vital Signs Date / Time: Height Weight BMI Pulse Rate Blood Pressure Temperature Respiratory Rate Body Surface Area Head Circumference Head Circ. Percentile Wt./Campos. Percentile BMI percentile Pulse Ox Inhaled Ox 4:06 PM 170.18 cm 113.398 kg (250.00 lbs) 39.1 6 kg/m eter (2) 68 /min Chief Complaint And Reason For Visit From encounter dated '06/18/2017 14:15'. Lower back pain (chief complaint). Description: Onset: 2.5 months ago. Severity level is 0-8/10. The problem is improving. It occurs persistently. Location of pain is lower back. Pain is radiated to the left thigh, right thigh and hamstrings.The patient describes the pain as dull, sharp and shooting. Context: no injury. Symptoms are aggravated by bending and changing positions.The patient denies relieving factors. Additional information: Patient saw a chiropractor 2 months ago for 3 visits without improvement. Patient denies studies for his current problem. Patient has been using Aleve or Advil on occasion but states that it didn't help. Patient had prostate CA w/o extension into the wall. He is currently in physical therapy and feels like the exercises are helping. Reason For Referral Reason For Referral No Information Plan Of Treatment Date Type Action Status Goal Tobacco cessation counseling completed Goal Tobacco cessation counseling completed Goal Prescribed diet education co mpleted Goal Tobacco cessation counseling completed Goal Prescribed diet education co mpleted History Of Present Illness Encounter Date Complaint History Of Prese nt Illness Lower back pain Onset: 2.5 month s ago. Severity level is 0-8/10. The problem is improving. It occurs persistently. Location of pain is lower back. Pain is radiated to the left thigh, right thigh and hamstrings.The patient describes the pain as dull, sharp and shooting. Context: no injury. Symptoms are aggravated by bending and changing positions.The patient denies relieving factors. Additional information: Patient saw a chiropractor 2 months ago for 3 visits without improvement. Patient denies studies for his current problem. Patient has been using Aleve or Advil on occasion but states that it didn't help. Patient had prostate CA w/o extension into the wall. He is currently in physical therapy and feels like the exercises are helping. low back pain Onset: 2 months ago. low back pain (comments) Onset: 2.5 months ago. Severity level is 0-8/10. The problem is improving. It occurs persistently. Location of pain is lower back. Pain is radiated to the left thigh, right thigh and hamstrings.The patient describes the pain as dull, sharp and shooting. Context: no injury. Symptoms are aggravated by bending and changing positions.The patient denies relieving factors. Additional information: Patient saw a chiropractor 2 months ago for 3 visits without improvement. Patient denies studies for his current problem. Patient has been using Aleve or Advil on occasion but states that it didn't help. Patient had prostate CA w/o extension into the wall. He is currently in physical therapy and feels like the exercises are helping. low back pain Onset: 2 months ago. Severity level is 10. The problem is worsening. It occurs persistently. Location of pain is lower back. Pain is radiated to the left thigh, right thigh and hamstrings.The patient describes the pain as dull, sharp and shooting. Context: no injury. Symptoms are aggravated by bending and changing positions.The patient denies relieving factors. Additional information: Patient saw a chiropractor 2 months ago for 3 visits without improvement. Patient denies studies for his current problem. Patient has been using Aleve or Advil on occasion but states that it didn't help. Patient had prostate CA w/o extension into the. low back pain (comments) wall. Functional Status Date Functional Assessmen t Pain Score 7/10 Instructions Date Instruction Additional Infor mation Prescribed diet education Relate d to Body mass index (BMI) 39.0-39.9, adult Prescribed activity/ exercise education Related to Body mass index (BMI) 39.0-39.9, adult [id number] dispensed for supporting his spine because of DDD. He was given oral care instructions Related to Low back pain lumbar xrayslumbar M [id number] 5mg 6 day pack #1Tramadol 50mg 1-2 po q 12 #60baclofen 10mg one po q 8 hr Related to Low back pain Prescribed diet education Relate d to Body mass index (BMI) 39.0-39.9, adult Prescribed activity/ exercise education Related to Body mass index (BMI) 39.0-39.9, adult Assessments Type Assessment Date assessment Body mass index (BMI) 39.0-39.9, adult assessment Low back pain assessment Other intervertebral disc degene ration, lumbar region assessment Radiculopathy, lumbar region May assessment Spinal stenosis, lumbosacral reg ion Mental Status Date Cognitive Assessment Orientation - [place] ed to time, place, person, situation.Normal Orientation Patient Care Teams Name Effective Dates (start - stop) Status Members No Information
--- OUTSIDE RECORDS SUMMARY | 2024-12-21 10:30 | XMS_ITS | Encounter Summary ---
Author Organization [facility] Address [address] [place] [address] Care Team Providers Care Lens Examiner Name Role Phone Janette Molina MD Primary Care Provider [phone] Reason for Visit * ReasonCommentsParkinson's Disease Encounter Details DateTypeDepartmentCare Team (Latest Contact Info)Tgxxuurquvb00/05/2025 10:30 AM EDTOffice Visit [facility] Neurology [address] [facility] [address] [place] [address] Nic Arvizu MD [address] [facility] [address] [place] [address] Carotid stenosis, bilateral (Primary Dx); AKASH (obstructive sleep apnea); Neurogenic pain; Cognitive decline; Cervical paraspinal muscle spasm; 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 (HCC) Social History Tobacco UseTypesPacks/DayYears UsedDateSmoking Tobacco: FormerCigarettes Smokeless Tobacco: Never Comments:>10 years since las t smoked Alcohol UseStandard Drinks/WeekCommentsYes0 (1 standard drink = 0.6 oz pure alcohol)caffeine: coffeeSex and Gender InformationValueDate RecordedSex Assigned at BirthNot on fileLegal TadQjka8807/31/2022 6:34 PM EDTGender IdentityNot on file Sexual OrientationNot on filedocumented as of this encounter Last Filed Vital Signs Vital SignReadingTime TakenCommentsBlood Psevhuhm535/7108/09/2024 10:51 AM EDT Eljfh2711/09/2024 10:51 AM EDTTemperature--Respiratory Rate--Oxygen Saturation-- Inhaled Oxygen Concentration--Rdvocy451 kg (223 lb)12/21/2024 10:51 AM EDTHeight 167.6 cm (5' 6 )12/21/2024 10:51 AM EDTBody Mass Index35.9912/21/2024 10:51 AM EDTdocumented in this encounter Progress Notes * Nic Arvizu MD - 12/21/2024 10:30 AM EDTAssociated Problem(s): Carotid stenosis, bilateral Plan US carotids 2025 before appt. * Nic Arvizu MD - 12/21/2024 10:30 AM EDTAssociated Problem(s): AKASH (obstructive sleep apnea) Try to get original PSG (2011) but certainly get recent PSG (both, [facility]). Long discussion re need to restart tx. Pt needs new supplies. OK to use old machine. Download in 1 mo, 3 mo, 6 mo, 11 mo. * Nic Arvizu MD - 12/21/2024 10:30 AM EDTAssociated Problem(s): Neurogenic pain (Continue current regimen.) Orders: gabapentin (Neurontin) 800 MG tablet; TAKE 1 TABLET BY MOUTH TWICE DAILY * Nic Arvizu MD - 12/21/2024 10:30 AM EDTAssociated Problem(s): Cognitive decline (Continue current regimen.) Orders: donepezil (Aricept) 10 MG tablet; Take 1 tablet (10 mg) by mouth Daily memantine (Namenda) 10 MG tablet; Take 1 tablet (10 mg) by mouth in the morning and 1 tablet (10 mg) before bedtime. * Nic Arvizu MD - 12/21/2024 10:30 AM EDTAssociated Problem(s): Cervical paraspinal muscle spasm (Continue home PT.) * Nic Arvizu MD - 12/21/2024 10:30 AM EDTAssociated Problem(s): Parkinson disease (HCC) (No clear need for med.) * Nic Arvizu MD - 12/21/2024 10:30 AM EDT Images from the original note were not included. Outpatient Progress Note Patient: Dante Shrestha Abraham Dept: Neurology : 1950 Appt Date: 12/21/2024 Prev Appt: Visit date not found Chief Complaint Patient presents with Parkinson's Disease Appointment Note -- 1 yr Assessment and Plan - Assessment & Plan Carotid stenosis, bilateral Plan US carotids 2025 before appt. AKASH (obstructive sleep apnea) Try to get original PSG (2011) but certainly get recent PSG (both, [facility]). Long discussion re need to restart tx. Pt needs new supplies. OK to use old machine. Download in 1 mo, 3 mo, 6 mo, 11 mo. Neurogenic pain (Continue current regimen.) Orders: gabapentin (Neurontin) 800 MG tablet; TAKE 1 TABLET BY MOUTH TWICE DAILY Cognitive decline (Continue current regimen.) Orders: donepezil (Aricept) 10 MG tablet; Take 1 tablet (10 mg) by mouth Daily memantine (Namenda) 10 MG tablet; Take 1 tablet (10 mg) by mouth in the morning and 1 tablet (10 mg) before bedtime. Cervical paraspinal muscle spasm (Continue home PT.) 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 (HCC) (No clear need for med.) No orders of the defined types were placed in this encounter. Follow-Up - Follow up in about 1 year (around 12/21/2025). History of Present Illness, Associated Treatments and Results - Dx PN . PAIN . RLS . PMLD . CRAMPS . Hx R LFC Tx GBP 800 bid (+ MVI) AEs Hx Pain, RLS - well controlled on curr dose. (Worsened when [facility] decr'd dose -- to 100 bid!) Leg cramps - rare. Onset Semeiology Paraesthesiae, itching (variable), restlessness. Imaging Testing [facility] (03/2020) - PN pattern, R LFC Labs - A1c=7.5, was 6.4 (on metformin) Surgery Failed ropinirole 8 (ineff) ... tizanidine (dizzy) Dx CVD . COGNITION Tx donepezil 10 + memantine 10 bid ASA 81 (+ atorva) AEs Hx Cognition - no changes, sx remain. CVD - no new complaints. Onset Semeiology Getting lost, losing train of thought, forgetting names. Imaging MR brain (05/2020, [facility] Joshua) - no mention of white matter lesion load US carotids (06/2023, [facility]) - < 50% B . . . . (03/2020, [facility]isca) - ~40% carotid bulbs CT head (03/2019, [facility] ) - nl Testing Labs - protein C=33L S=48L (both likely due to warfarin) Surgery (CABG x 3). Failed donepezil 20 (N/V/diarrh) Dx TREMOR Tx (Remains OFF Sinemet 25/100 qeve (!)) AEs Hx No complaints. Minimal to no tremor despite stopping med. Coffee 3-4 c q M-F. Onset Semeiology Resting tremor R>>L hand, handwriting smaller. Imaging Testing Surgery Failed ropinirole 8 (ineff) Dx (AKASH) Tx BiPAP @ - per PCP AEs Hx AKASH - Long discussion. Pt had gotten a new machine but could not tolerate, new mask (mailed to him) was leaking. <01/26>Pt states BiPAP improves sleep when mask is fitting well and not leaking. <03/08>Further clarification from pt. He continues to use his old mask and his very old machine and continues to benefit from PAP I.e. sleep is better on PAP than off PAP. Failed Semeiology Circadian Noct oxim PSG PAPT ([facility]) - AHI=2.2 @ MSLT MWT Imaging Testing [...] ___, unchanged: ___, orig: ___ MSK - ___, unchanged: ___, orig: ___ Other - ___, unchanged: ___, orig: ___ Vital Signs - Visit Vitals BP 136/71 Pulse 71 Ht 5' 6 Wt 223 lb BMI 35.99 kg/m?? Smoking Status Former BSA 2.17 m?? Review of Systems - . Const: Denies [...] SH - Past Medical History: Diagnosis Date Republic's disease (HCC) Chronic kidney disease, stage III (moderate) ([facility]) Current use of insulin (HCC) Current use of steroid medication Depression Diabetes (HCC) Dietary counseling and surveillance GERD (gastroesophageal reflux disease) History of hepatitis B Hyperlipidemia Hypertension Hypothyroidism Prostate cancer (HCC) Prostate cancer (HCC) Sleep apnea Thyroid disease Type 2 diabetes mellitus with other circulatory complications (HCC) Vitamin D deficiency Past Surgical History: Procedure Laterality Date APPENDECTOMY CARPAL TUNNEL RELEASE Bilateral CATARACT EXTRACTION 2004 CHOLECYSTECTOMY 2014 COLONOSCOPY 2009 NOSE SURGERY x 2 OTHER SURGICAL HISTORY Adrenal glands removed PLANTAR FASCIA SURGERY AR MEDICATION MANAGEMENT Disease:Republic's Disease AR RELEASE THENAR MUSCLE Right 06/13/2014 thumb trigger release RADICAL PROSTATECTOMY [facility] 2009 Disease:Prostate cancer TRIGGER FINGER RELEASE No Known Allergies Family History Problem Relation Name Age of Onset Diabetes Mother Hypertension Mother Heart disease Mother Diabetes Father Hypertension Father Heart disease Father Outpatient Encounter Medications as of 12/21/2024 Medication Sig Dispense Refill amantadine (Symmetrel) 100 MG tablet Take 1 tablet by mouth Daily aspirin 81 MG chewable tablet Chew 1 tablet Daily atorvastatin (Lipitor) 40 MG tablet Take 1 tablet by mouth Daily citalopram (CeleXA) 20 MG tablet Take 1 tablet by mouth in the morning. coenzyme Q-10 100 MG capsule Take 1 capsule by mouth Daily donepezil (Aricept) 10 MG tablet Take 1 tablet (10 mg) by mouth Daily 30 tablet 11 fludrocortisone (Florinef) 0.1 MG tablet TAKE 1 TABLET BY MOUTH DAILY 90 tablet 1 gabapentin (Neurontin) 800 MG tablet TAKE 1 TABLET BY MOUTH TWICE DAILY 60 tablet 5 hydrocortisone (Cortef) 10 MG tablet TAKE 2 TABLETS BY MOUTH IN THE MORNING and TAKE 1 TABLET BY MOUTH IN THE EVENING 270 tablet 1 hydrocortisone (Cortef) 20 MG tablet Take 0.5 tablets (10 mg) by mouth in the morning and 0.5 tablets (10 mg) in the evening and 0.5 tablets (10 mg) before bedtime. 135 tablet 3 levothyroxine (Synthroid, Levoxyl) 100 MCG tablet Take 1 tablet (100 mcg) by mouth Daily before meals 90 tablet 3 levothyroxine (Synthroid, Levoxyl) 125 MCG tablet Take 1 tablet by mouth Daily lisinopril 5 MG tablet Take 1 tablet every day by oral route for 90 days. magnesium 30 MG tablet Take 1 tablet by mouth Daily memantine (Namenda) 10 MG tablet Take 1 tablet (10 mg) by mouth in the morning and 1 tablet (10 mg)before bedtime. 60 tablet 11 metoprolol tartrate (Lopressor) 25 MG tablet Take 3 tablets by mouth in the morning and 3 tablets before bedtime. Multiple Vitamins-Minerals (CENTRUM ADULT PO) Take 1 tablet by mouth Daily omeprazole (PriLOSEC) [address] capsule Take 1 capsule every day by oral route. semaglutide (Ozempic) 4 MG/3ML solution pen-injector Inject 1 mg under the skin 1 (one) time per week 9 mL 1 tiZANidine (Zanaflex) 4 MG tablet Take 1 tablet by mouth 2 (two) times a day as needed. [DISCONTINUED] carbidopa-levodopa (Parcopa) 25-100 MG disintegrating tablet Take 1 tablet by mouth in the morning and 1 tablet in the evening. (Patient not taking: Reported on 05/24/2024) [DISCONTINUED] cholestyramine (Questran) 4 g packet use 1 (ONE) PACKET BY MOUTH DAILY (Patient not taking: Reported on 05/24/2024) [DISCONTINUED] donepezil (Aricept) 10 MG tablet Take 1 tablet (10 mg) by mouth Daily 30 tablet 11 [DISCONTINUED] gabapentin (Neurontin) 800 MG tablet TAKE 1 TABLET BY MOUTH TWICE DAILY *may TAKE THREE TIMES DAILY * 90 tablet 5 [DISCONTINUED] memantine (Namenda) 10 MG tablet Take 1 tablet (10 mg) by mouth in the morning and 1tablet (10 mg) before bedtime. 60 tablet 11 [DISCONTINUED] metFORMIN (Glucophage) 500 MG tablet Take 1 tablet by mouth in the morning and 1 tablet before bedtime. (Patient not taking: Reported on 05/24/2024) [DISCONTINUED] omega-3 (fish oil) 600 MG capsule Take 1 capsule by mouth 1 (one) time each day at the same time (Patient not taking: Reported on 05/24/2024) [DISCONTINUED] rOPINIRole XL (Requip XL) 8 MG 24 hr tablet Take 1 tablet by mouth in the morning. (Patient not taking: Reported on 05/24/2024) [DISCONTINUED] Semaglutide,0.25 or 0.5MG/DOS, 2 MG/3ML solution pen-injector As Directed (Patient not taking: Reported on 05/24/2024) No facility-administered encounter medications on file as of 12/21/2024. Nic Arvizu M.D. [facility] ? [address] ? [place] [address] ? ? fax Neurology ? Clinical Neurophysiology ? Epilepsy ? Sleep Disorders ? Clinical Informatics documented in this encounter Plan of Treatment DateTypeDepartmentCare Team (Latest Contact Info)Aufvwhkbwag03/12/2026 10:00 AM ESTOffice Visit [facility] [place] [facility] [address] [place] [address] Tyler Estrada MD [address] [place] [address] 12/20/2025 10:30 AM EDTOffice Visit [facility] [place] [facility] Neurology [address] [facility] [address] [place] [address] Nic Arvizu MD [address] [facility] [address] [place] [address] documented as of this encounter Visit Diagnoses Diagnosis Carotid stenosis, bilateral- Primary Occlusion and stenosis of carotid artery without mention of cerebral infarction AKASH (obstructive sleep apnea) Obstructive sleep apnea (adult) (pediatric) Neurogenic pain Cognitive decline Cervical paraspinal muscle spasm Spasm of muscle 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 (HCC) documented in this encounter Care Teams Team MemberRelationshipSpecialtyStart DateEnd Date Janette Molina MD [address] [facility] [place] [address] PCP - GeneralFamily Medicine09/08/24documented as of this encounter
--- OUTSIDE RECORDS SUMMARY | 2025-03-14 08:28 | XMS_ITS | Encounter Summary ---
Author Organization [facility] Address [address] [place] [address] Care Team Providers Care Engineering Coordinator Name Role Phone Janette Molina MD Primary Care Provider [phone] Encounter Details DateTypeDepartmentCare Team (Latest Contact Info)Bnljoygpqrc94/20/2025Telephone [facility] Neurology [address] [facility] [address] [place] [phone] Tomeka Hernandez MA Social History Tobacco UseTypesPacks/DayYears UsedDateSmoking Tobacco: FormerCigarettes Smokeless Tobacco: Never Comments:>10 years since las t smoked Alcohol UseStandard Drinks/WeekCommentsYes0 (1 standard drink = 0.6 oz pure alcohol)caffeine: coffeeSex and Gender InformationValueDate RecordedSex Assigned at BirthNot on fileLegal BxxSzyy1307/31/2022 6:34 PM EDTGender IdentityNot on file Sexual OrientationNot on filedocumented as of this encounter Miscellaneous Notes * Telephone Encounter - Tomeka Hernandez MA - 03/09/2025 9:17 AM EDT Sent updated note * Telephone Encounter - Tomeka Hernandez MA - 03/08/2025 2:07 PM EDT Patient has machine but it is very old and needs new machine. He is using old machine, benefiting from machine. He needs equipment which we are trying to get him with new machine. * Telephone Encounter - Tomeka Hernandez MA - 03/07/2025 9:23 AM EDT Our office received call from [facility] that his office note needed addended again to state patient is using machine and benefiting from use. Insurance will not approve new machine if note does note state that. (01/26 addendum was sent and rejected by insurance) documented in this encounter Plan of Treatment DateTypeDepartmentCare Team (Latest Contact Info)Aizznmqfoyg90/12/2026 10:00 AM ESTOffice Visit [facility] [address] [place] [address] Tyler Estrada MD [address] [place] [address] 12/20/2025 10:30 AM EDTOffice Visit [facility] Neurology [address] [facility] [address] [place] [address] Nic Arvizu MD [address] [facility] [address] [place] [address] documented as of this encounter Visit Diagnoses Not on filedocumented in this encounter Care Teams Team MemberRelationshipSpecialtyStart DateEnd Date Janette Molina MD [address] [facility] [place] [phone] PCP - GeneralFamily Medicine09/08/24documented as of this encounter
--- OUTSIDE RECORDS SUMMARY | 2025-03-14 08:28 | XMS_ITS | Clinical Summary ---
Author Organization [facility] Address [address] [place] [address] Care Team Providers Care Tree Fruit [employer] Nut Crops Farmer Name Role Phone Janette Molina MD Primary Care Provider Allergies No known active allergies Medications MedicationSigDispense QuantityRefillsLast FilledStart DateEnd DateStatus citalopram (CeleXA) 20 MG tablet Take 1 tablet by mouth in the morning.Active levothyroxine (Synthroid, Levoxyl) 125 MCG tablet Take 1 tablet by mouth DailyActive lisinopril 5 MG tablet Take 1 tablet every day by oral route for 90 days.Active metoprolol tartrate (Lopressor) 25 MG tablet Take 3 tablets by mouth in the morning and 3 tablets before bedtime.Active omeprazole (PriLOSEC) [address] capsule Take 1 capsule every day by oral route.Active tiZANidine (Zanaflex) 4 MG tablet Take 1 tablet by mouth 2 (two) times a day as needed.Active atorvastatin (Lipitor) 40 MG tablet Take 1 tablet by mouth DailyActive Multiple Vitamins-Minerals (CENTRUM ADULT PO) Take 1 tablet by mouth DailyActive coenzyme Q-10 100 MG capsule Take 1 capsule by mouth Daily08/14/2023ctive aspirin 81 MG chewable tablet Chew 1 tablet Daily08/14/2023ctive amantadine (Symmetrel) 100 MG tablet Take 1 tablet by mouth Daily10/27/2023ctive magnesium 30 MG tablet Take 1 tablet by mouth DailyActive hydrocortisone (Cortef) 10 MG tablet Indications:Type 2 diabetes mellitus with other circulatory complications (HCC) TAKE 2 TABLETS BY MOUTH IN THE MORNING and TAKE 1 TABLET BY MOUTH IN THE EVENING 270 tablet 5Active fludrocortisone (Florinef) 0.1 MG tablet Indications:Type 2 diabetes mellitus with other circulatory complications (HCC) TAKE 1 TABLET BY MOUTH DAILY 90 tablet 5Active hydrocortisone (Cortef) 20 MG tablet Indications:Adrenal insufficiency (HCC)Take 0.5 tablets (10 mg) by mouth in the morning and 0.5 tablets (10 mg) in the evening and 0.5 tablets (10 mg) before bedtime. 135 tablet /6Active semaglutide (Ozempic) 4 MG/3ML solution pen-injector Indications:Type 2 diabetes mellitus with hyperglycemia, without long-term current use of insulin (HCC)Inject 1 mg under the skin 1 (one) time per week 9 mL 5Active levothyroxine (Synthroid, Levoxyl) 100 MCG tablet Indications:Hypothyroidism, unspecifiedTake 1 tablet (100 mcg) by mouth Daily before meals 90 tablet /6Active gabapentin (Neurontin) 800 MG tablet Indications:Neurogenic painTAKE 1 TABLET BY MOUTH TWICE DAILY 60 tablet 505Active donepezil (Aricept) 10 MG tablet Indications:Cognitive declineTake 1 tablet (10 mg) by mouth Daily 30 tablet 11012/21//6Active memantine (Namenda) 10 MG tablet Indications:Cognitive declineTake 1 tablet (10 mg) by mouth in the morning and 1 tablet (10 mg) before bedtime. 60 tablet 11012/21//6Active Active Problems ProblemNoted DateDiagnosed DateNeurogenic pain12/16/2022 Assessment & Plan (03/08/2025 6:06 PM EDT): (Continue current regimen.) Orders: gabapentin (Neurontin) 800 MG tablet; TAKE 1 TABLET BY MOUTH TWICE DAILY Assessment & Plan (12/23/2023 10:52 AM EDT): (Continue current regimen.) Assessment & Plan (06/24/2023 10:21 AM EST): Change GBP to 800 bid -> tid. Assessment & Plan (12/17/2022 10:13 AM EDT): (Continue current regimen.) Pt could call for incr to 800 tid if/when desired. Parkinson ggrsndh7512/16/2022 Assessment & Plan (03/08/2025 6:06 PM EDT): (No clear need for med.) Assessment & Plan (12/23/2023 10:52 AM EDT): (No clear need for med.) Assessment & Plan (06/24/2023 10:20 AM EST): Stop med for now ad experimentum. If needs to restart, bid (before breakfast & before lunch). Assessment & Plan (12/17/2022 10:07 AM EDT): (Continue current regimen.) Cognitive kwslwgs4112/16/2022 Assessment & Plan (03/08/2025 6:06 PM EDT): (Continue current regimen.) Orders: donepezil (Aricept) 10 MG tablet; Take 1 tablet (10 mg) by mouth Daily memantine (Namenda) 10 MG tablet; Take 1 tablet (10 mg) by mouth in the morning and 1 tablet (10 mg) before bedtime. Assessment & Plan (12/23/2023 10:51 AM EDT): (Continue current regimen.) Assessment & Plan (06/24/2023 10:22 AM EST): (Continue current regimen.) Assessment & Plan (12/17/2022 10:07 AM EDT): (Continue current regimen.) RLS (restless legs syndrome)12/16/2022 Assessment & Plan (12/23/2023 10:52 AM EDT): (q.v.) Assessment & Plan (12/17/2022 10:12 AM EDT): (q.v.) Vsltryknoyxmlz77/31/2023 Overview (12/16/2022): --- causing sensory loss R20.0, gait ataxia R26.0, neurogenic pain M79.2. Assessment & Plan (12/17/2022 10:12 AM EDT): (q.v.) PLMD (periodic limb movement disorder)12/16/2022 Assessment & Plan (12/17/2022 10:12 AM EDT): (q.v.) Muscle wjroqu5812/16/2022 Assessment & Plan (12/17/2022 10:12 AM EDT): Could add Mg if problem recurs. Carotid stenosis, eatxlibdk44/31/2023 Assessment & Plan (03/08/2025 6:06 PM EDT): Plan US carotids 2025 before appt. Assessment & Plan (12/23/2023 10:51 AM EDT): Plan US carotids 2025. Assessment & Plan (06/24/2023 10:21 AM EST): US carotids. Assessment & Plan (12/17/2022 10:09 AM EDT): US carotids ([facility]). Cervical paraspinal muscle spasm10/11/2022 Assessment & Plan (03/08/2025 6:06 PM EDT): (Continue home PT.) Assessment & Plan (12/23/2023 10:52 AM EDT): (Continue home PT.) Assessment & Plan (06/24/2023 10:22 AM EST): (Continue home PT.) Assessment & Plan (12/17/2022 10:12 AM EDT): (Continue home PT.) AKASH (obstructive sleep apnea)11/26/2013 Assessment & Plan (03/08/2025 6:06 PM EDT): Try to get original PSG (2011) but certainly get recent PSG (both, Fransisca). Long discussion re need to restart tx. Pt needs new supplies. OK to use old machine. Download in 1 mo, 3 mo, 6 mo, 11 mo. Assessment & Plan (12/23/2023 10:52 AM EDT): (Per PCP.) Assessment & Plan (06/24/2023 10:23 AM EST): (Per PCP.) Assessment & Plan (12/17/2022 10:12 AM EDT): (Per PCP.) Encounters DateTypeDepartmentCare WegrJlxedsynewt71/20/2025Telephone [facility] [address] [address] Tomeka Hernandez MA 02/10/2025Telephone [facility] [address] [place] [address] Tomeka Hernandez MA 01/25/2025Telephone [facility] [address] [place] [address] Sera Reeves MA 12/21/2024 10:30 AM EDTOffice Visit [facility] [address] [address] [place] [address] Nic Arvizu MD Carotid stenosis, bilateral (Primary Dx); AKASH (obstructive sleep apnea); Neurogenic pain; Cognitive decline; Cervical paraspinal muscle spasm; 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 (HCC) 12/21/2024amboo flowsheet [facility] [address] [place] [phone] Nic Arvizu MD 12/21/2024Travelfrom Last 3 Months Immunizations ImmunizationAdministration DatesNext DueABRYSVO - Respiratory syncytial virus (RSV), vaccine, bivalent, protein subunit RSV prefusion F, diluent reconstituted, 0.5 mL, PF04/04/2023Influenza, High Dose Seasonal, Preservative Free03/20/2018,03/04/2016Influenza, Seasonal, Quadrivalent, Jgirllquja45/13/2023 ,06/25/2021Influenza, Ospdqrgisyo49/01/2024,03/11/2023,02/17/2020Influenza, trivalent, xrjaycfamo91/26/2019Pfizer Purple Cap SARS-CoV-2 Vaccination 08/05/2020,07/22/2020,07/15/2020neumococcal Polysaccharide VVAA3733Td (adult), pqaorfucvjl55/29/2001Txog07/13/2023,05/01/2010,03/31/2010Yellow Fever 10/27/1991Zoster, Tcrjmhhjyzj12/12/2021,09/06/2020 Family History Medical HistoryRelationNameCommentsDiabetesFatherHeart diseaseFatherHypertension FatherDiabetesMotherHeart diseaseMotherHypertensionMotherRelationNameStatus CommentsBrotherx 5DeceasedDaughter 1DeceasedDaughter 2AliveFatherDeceasedMother DeceasedSisterx 3 dec, 1 aliveSonx 1Alive Social History Tobacco UseTypesPacks/DayYears UsedDateSmoking Tobacco: FormerCigarettes Smokeless Tobacco: Never Tobacco Cessation:Counseling Given: Not Answered Comments:>10 years since last smoked Alcohol UseStandard Drinks/WeekCommentsYes0 (1 standard drink = 0.6 oz pure alcohol)caffeine: coffeeSex and Gender InformationValueDate RecordedSex Assigned at BirthNot on fileLegal IlhVhnn4207/31/2022 6:34 PM EDTGender IdentityNot on file Sexual OrientationNot on file Last Filed Vital Signs Vital SignReadingTime TakenCommentsBlood Knpbhfyn984/7108 10:51 AM EDT Pbibz2477 10:51 AM EDTTemperature--Respiratory Rcrk4780 9:48 AM EDTOxygen Pcrjrfjxrj77%11/29/2024 9:48 AM EDTInhaled Oxygen Concentration-- Tgrvfa441 kg (223 lb)12/21/2024 10:51 AM GEORlbapo055.6 cm (5' 6 )12/21/2024 10:51 AM EDTBody Mass Index35.9912/21/2024 10:51 AM EDT Plan of Treatment DateTypeDepartmentCare Team (Latest Contact Info)Uxeksxszoip69/12/2026 10:00 AM ESTOffice Visit [facility] [address] [place] [address] Tyler Estrada MD [address] [place] [address] 12/20/2025 10:30 AM EDTOffice Visit [facility] [address] [place] [address] Nic Arvizu MD [address] [facility] [place], [place] [id number] Health MaintenanceDue DateLast DoneCommentsCT Xfqlgjlciabb59/10/1951Colonoscopy 1Colorectal Cancer Ndzlfkvmw41/10/1951FIT-DNA1950FIT1950 FOBT1382Mvzirilspnffz90/10/1951Influenza Vaccine (#1)5006/30/2024, 05/19/2023, 03/11/2023, Additional history existsPneumococcal Vaccine: 65+ Years Ynjesucps63/12/2025, 06/25/2021, 03/19/2018, Additional history exists Insurance Care Teams Team MemberRelationshipSpecialtyStart [place] [address] [place] [phone] PCP - GeneralFamily Medicine09/08/24
--- OUTSIDE RECORDS SUMMARY | 2025-03-14 08:28 | XMS_ITS | Patient Health Record ---
Author Organization [facility] [place] Address [address] [place] [address] Care Team Providers Care Residential Roofer Name Role Phone Janette Molina Primary Care Provider Unavailabl e Reason For Referral No Information Medications Medication SIG (Take, Route, Frequency, Duration) Notes Start Date End Date Status Fish Oil 600 MG 1 capsule Orally Once a day; Dur ation: 30 day(s) ActiveLevothyroxine Sodium 150 mcg (0.15 mg)1 Orally DAILY; Duration: 90 days Needs appt.ActiveGabapentin 800 MG1 tablet Orally Once a day; Duration: 30 day(s)2000mg a dayActiveFludrocortisone Acetate 0.1MG1 Orally every other day; Duration: 90 daysActiverOPINIRole HCl ER 8 MG1 tablet Orally Once a day 12/19/2016ActiveCortef 20 MG1 tablet am; 1/2 pm Orally Daily; Duration: 90 days Patient needs to schedule an ipcvwrbfjid37/05/2018Activemultivitamin Multiple Vitamins1 capsule DAILY ActiveAtorvastatin Calcium 20 MG1 Orally Daily; Duration: 30 day(s)Patient needs to call to schedule an appointment.02/14/2020 ZkgiyfQoQ49 100 MG1 tablet Orally Daily ActiveLisinopril 5 MGTAKE 1 TABLET DAILY; Duration: 90ActiveCitalopram Hydrobromide 20 MG1 tablet Orally Once a dayActiveWarfarin Sodium 2.5 MG3 tabs Orally Once a dayActiveVictoza 18 MG/3ML1.8 mg Subcutaneous DailyActiveLantus 100 UNIT/MLas directed Subcutaneous 20 units a day.Active Immunizations Vaccine Route Administration Date Status Comme nts Flu, Unspecified Unknown 03/19/2018 Administered Pneumococcal (Pneumovax 23)Yfciytt5406/06/2010dministeredPneumococcal (Prevnar 13)Izrtuhu6703/19/2018Administered Social History Tobacco Use: Social History Observation Description Date Details (start date - stop date) Former Smoker NA - NA Tobacco Use/Smoking Question Answer Notes Patient is a former smoker When did you stop smoking?1987How long has it been since you last smoked?> 10 years Problems Problem Type SNOMED Code ICD Code Onset Dates Problem Status W/U Status Risk Notes Problem Insufficient sleep s yndrome (354134845) Insufficient sleep syndrome (F51.12) ActiveconfirmedProblemHyperlipidemia (02041928)Hyperlipidemia (E78.5)Active confirmedProblemHypothyroidism (95883395)Hypothyroidism (E03.9)Activeconfirmed ProblemDepression (646960389)Depression (F32.9)Activeconfirmedhistory ofProblem Diarrhea (07186346)Diarrhea (R19.7)ActiveconfirmedProblemArteriosclerotic heart disease (69346910)ASHD (arteriosclerotic heart disease) (I25.10)Activeconfirmed ProblemExcessive daytime sleepiness (2466529419)Excessive daytime sleepiness (G47.19)ActiveconfirmedProblemChronic pulmonary embolism (017725572425374)Other chronic pulmonary embolism without acute cor pulmonale (I27.82)Activeconfirmed ProblemDiabetes mellitus type 2 (32938402)Diabetes mellitus type 2, uncomplicated (E11.9)ActiveconfirmedProblemPeriodic limb movement disorder (630766789)Periodic limb movements of sleep (G47.61)ActiveconfirmedProblem Primary adrenocortical insufficiency (564677088)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)ActiveconfirmedProblemIron deficiency anemia (08059771)Iron deficiency anemia, unspecified iron deficiency anemia type (D50.9)Active confirmedProblemMeralgia paresthetica (35166552)Meralgia paresthetica, right (G57.11)ActiveconfirmedProblemRestless legs (22884800)Restless leg syndrome, familial, uncontrolled (G25.81)ActiveconfirmedProblemObstructive sleep apnea syndrome (47460692)Obstructive sleep apnea syndrome, moderate (G47.33)Active confirmedProblemPostprocedural states (731772333)History of open heart surgery (Z98.890)Activeconfirmed Plan Of Treatment Pending Test Test Name Order Date BMP (BASIC MET PANEL - W/GFR) 03/08/2015 BMP (BASIC MET PANEL - W/GFR) 03/13/2016 BMP (BASIC MET PANEL - W/GFR) 11/27/2017 BMP (BASIC MET PANEL - W/GFR) 04/22/2018 BMP (BASIC MET PANEL - W/GFR) 07/28/2018 BMP (BASIC MET PANEL - W/GFR) 01/06/2019 BMP (BASIC MET PANEL - W/GFR) 04/27/2019 BMP (BASIC MET PANEL - W/GFR) 05/31/2020 LIVER (HEPATIC) PANEL 05/31/2020 LIVER (HEPATIC) PANEL 04/27/2019 LIVER (HEPATIC) PANEL 01/06/2019 LIVER (HEPATIC) PANEL 07/28/2018 LIVER (HEPATIC) PANEL 04/22/2018 LIVER (HEPATIC) PANEL 11/27/2017 LIVER (HEPATIC) PANEL 03/13/2016 LIVER (HEPATIC) PANEL 03/08/2015 T4 FREE (T4FR) 03/08/2015 T4 FREE (T4FR) 03/13/2016 T4 FREE (T4FR) 11/27/2017 T4 FREE (T4FR) 01/06/2019 T4 FREE (T4FR) 04/27/2019 T4 FREE (T4FR) 05/31/2020 TSH 04/27/2019 TSH 05/31/2020 TSH 01/06/2019 TSH 11/27/2017 TSH 03/08/2015 TSH 03/13/2016 Insurance Providers Payer Name Payer Address Payer Phone Subscriber Number Group Number Insured Name Patient Relationship to Insured Coverage Start Date Coverage End Date [employer] [address] [place] [address] [id number] Braydon Rosario - patient is the insuredTUNC HEALTH SUPPLEMENTAL INSURANCEPO B[address] [address] [place] [id number], LarrySelf - patient is the [id number] 2015 Medical (General) History Medical History History ICD Code Stewart's disease restless leg syndrome/periodic movement of sleepTremorshypertensiondiabetes hypercholesterolemiaadrenal insufficiencypsoriasishypothyroidismdepression meralgia paresthetica, rightDiabetes mellitus type 2, qtazfqritenjpL69.9Diarrhea R19.7Adrenal insufficiency (Kris's disease)E27.2DiipetyklatbfyB51.9 VtvtnlhlpjhmtkF42.6EzxtcpitvxY92.9Periodic limb movements of cesvgU55.61Meralgia paresthetica, iuaaqT49.11ASHD (arteriosclerotic heart disease)I25.10History of open heart rltvykkV87.890Other chronic pulmonary embolism without acute cor fmuoemliiD50.82Obstructive sleep apnea syndrome, leywuredJ71.33Restless leg syndrome, familial, bmmjgkqfblnxW85.81Excessive daytime xfateqfawhH16.19Iron deficiency anemia, unspecified iron deficiency anemia typeD50.9Surgical History Surgery Date(Month/Year) triple bypass heart surgery 03/31/2018 trigger release bilateral hands plantar faciatis removalnasal surgeryganglion cyst removedCarple tunnel surgery kektaaklwyhm27 yrs oldwisdom teethunkcataract/ [id number] removal 2010-1019zhcovcpkqhtchxo4908Cljeencminfcmjo History Reason Date(Month/Year) prostate reemoval/ [facility]
--- OUTSIDE RECORDS SUMMARY | 2025-03-14 08:29 | XMS_ITS | Clinical Summary ---
Author Organization [facility] Address [address] [place] [address] Phone Care Team Providers Care Medical Dir Name Role Phone Unavailable Primary Care Provider Unavailabl e Social History Tobacco UseTypesPacks/DayYears UsedDateSmoking Tobacco: Never AssessedSex and Gender InformationValueDate RecordedSex Assigned at BirthNot on fileLegal Sex Male04/12/2022 5:22 PM ESTGender IdentityNot on fileSexual OrientationNot on file Plan of Treatment Not on file Medical Devices ImplantedTypeAreaManufacturerDevice IdentifierShelf Expiration DateModel / Serial / LotLead, Pacing, Ventricular, Temporary, Unipolar, Standard Case [id number] Implanted:Qty: 1 on 03/31/2018 by Jc Gaston MDCardiac Pacemaker [id number] / [id number] / Description:Converted from [facility]. Please see archived information for full log information. Advance Directives For more information, please contact: [phone] (Available ) TypeDate RecordedPatient RepresentativeExplanationAdvance Directives and Living Will04/15/2018Healthcare Power of Atty106/08/2017Living Will04/08/2018
--- OUTSIDE RECORDS SUMMARY | 2025-03-14 08:29 | XMS_ITS | Clinical Summary ---
Author Organization [facility] Address [address] [place] [address] Care Team Providers Care Body Shop Estimator Name Role Phone Janette Molina MD Primary Care Provider [phone] Allergies No known active allergies Medications MedicationSigDispense QuantityRefillsLast FilledStart DateEnd DateStatus aspirin 81 mg EC tablet in the morning.Active atorvastatin (Lipitor) 20 mg tablet Take 20 mg by mouth at bedtime.Active carbidopa-levodopa (Sinemet) 25-100 mg tablet carbidopa 25 mg-levodopa 100 mg tablet TAKE 1 TABLET BY MOUTH TWICE DAILYActive cholestyramine (Questran) 4 gram packet cholestyramine (with sugar) 4 gram powder for susp in a packet use 1 (ONE) PACKET BY MOUTH DAILY03/15/2015ctive citalopram (CeleXA) 20 mg tablet citalopram 20 mg tablet TAKE 1 TABLET BY MOUTH EVERY DAYActive donepezil (Aricept) 10 mg tablet donepezil 10 mg tablet TAKE 1 TABLET BY MOUTH DAILYActive fludrocortisone (Florinef) 0.1 mg tablet 4 (four) times a week.Active gabapentin (Neurontin) 800 mg tablet gabapentin 800 mg tablet TAKE 1 TABLET BY MOUTH DAILYActive hydrocortisone (Cortef) 20 mg tablet hydrocortisone 20 mg tablet TAKE 1 TABLET BY MOUTH IN THE MORNING then TAKE 1/2 (ONE-HALF) OF A TABLET BY MOUTH IN THE TXWMUOK9511/17/2018Active levothyroxine (Synthroid, Levoxyl) 150 mcg tablet levothyroxine 150 mcg tablet TAKE 1 TABLET BY MOUTH DAILY09/20/2018Active lisinopril 5 mg tablet Take 5 mg by mouth in the morning.11/11/2018Active memantine (Namenda) 10 mg tablet memantine 10 mg tablet TAKE 1 TABLET BY MOUTH TWICE DAILYActive metFORMIN (Glucophage) 500 mg tablet metformin 500 mg tablet TAKE 1 TABLET BY MOUTH TWICE DAILYActive omeprazole (PriLOSEC) [address] capsule omeprazole 40 mg capsule,delayed releaseActive rOPINIRole XL (Requip XL) 8 mg 24 hr tablet Take 1 tablet by mouth in the morning.Active tiZANidine (Zanaflex) 4 mg tablet tizanidine 4 mg tablet TAKE 1 TABLET BY MOUTH TWICE DAILY NEEDEDActive semaglutide (Ozempic) 0.25 mg or 0.5 mg (2 mg/3 mL) pen injector INJECT 0.5MG SUBCUTANEOUSLY EVERY WEEK FOR TYPE 2 DIABETES MELLITUS FOR DIABETES AND BLOOD SUGAR CONTROL. KEEP REFRIGERATED, HOWEVER, MAY BE KEPT AT ROOM TEMPERATURE FOR UP TO 56 DAYS01/28/2023ctive metoprolol tartrate (Lopressor) 100 mg tablet Indications:Benign hypertensive heart disease without congestive heart failure Take 1 tablet (100 mg) by mouth two times daily. 180 tablet ctive Active Problems ProblemNoted DateDiagnosed DateAbnormal results of liver function studies 06/23/2024Excessive daytime dnvacdtikl36/05/2025History of open heart surgery 06/23/2024Insufficient sleep aovdtkbo75/05/6248Gjzqpwbfoub07/20/2024Encounter for fitting and adjustment of hearing aid01/06/20242015Ranenxcozzrifd03/20/2024 Secondary uohdtabqfbborfwmgqp58/20/2024Sensorineural hearing loss, bilateral 01/06/2024Mild aortic valve rrzjfbanybmcl17/08/2024 Assessment & Plan (05/26/2023 8:34 AM EST): Monitor with routine echocardiogram Benign essential hbsjdfxiwpfs95epression History of colonic nhvmha95Hypothyroid Lumbar asooywviyrllh25Neuralgia and neuritis, unspecified Osteopeniaarkinson's kokskzv6305/26/2023 05/26/20230951Mnukrnwy97Type 2 diabetes mellitus without lmapimqsgpjfp11arotid stenosis, fjhhullyj86 Overview (05/26/2023): Last Assessment & Plan: US carotids (NOMS). Cognitive vyfkxbd15 Overview (05/26/2023): Last Assessment & Plan: (Continue current regimen.) Neurogenic pain Overview (05/26/2023): Last Assessment & Plan: (Continue current regimen.) Pt could call for incr to 800 tid if/when desired. Ufheorwkuzhomx02 Overview (05/26/2023): --- causing sensory loss R20.0, gait ataxia R26.0, neurogenic pain M79.2. Last Assessment & Plan: (q.v.) Cervical paraspinal muscle spasm Overview (05/26/2023): Last Assessment & Plan: (Continue home PT.) Carcinoma of clvxsrig86/05/2023iabetes wpvvpqyy97/05/4214Jeocqqlgp66/05/2023 History of anticoagulant ypckzng7205/23/2022History of malignant neoplasm of ruchnigv11/05/2023Microscopic whxpasctr18/05/2023Urge incontinence of urine 05/23/2022Urinary bxkyhpp5105/23/20228281Lvprhlhi74/29/2020Rectal svqyativ16/29/2020 Abnormality of gait and gndbrwua44/22/2019 Overview (05/23/2022): This is a 68 year old male who presented to the ED s/p L3-L4 lumbar decompression for spinal stenosis on 04/05/19. Fever at home 102.1, emesis x3, incision with increased redness per . EKG with sinus tachycardia 111, no ST changes. CXR unremarkable. Lactic acid 3.4. ED impression SIRS, dehydration, TIFFANI, bronchitis. Seen by Neurosurgery s/p lumbar decompression, difficulty ambulating, poor oral intake, nausea and vomiting, dehydration. Hold off on antibiotics, no further intervention, Rehab eval. MRI Lumbar 04/08/19 revealed no drainable fluid collection or abscess. Multilevel degenerativedisc disease and facet osteoarthropathy T12-S1, severe thecal sac stenosis L3-L4 just superior to laminectomy site. The patient has been found to have severe abnormality of gait and mobility with impaired self care due to Impaired Mobility and ADL's due to Severe Lumbar Spinal Stenosis and is admitted to the acuteinpatient rehab program. Transcribed from pre-admission information sheet completed by Najma Good RN/mdl as directed by Dr. Ellie Juárez. Iron deficiency qicaei3604/09/2019Meralgia kpzevusxtcsz89/22/2019Obstructive sleep apnea iintednn11/22/2019CKD (chronic kidney disease)04/08/2019Elevated bilirubin 04/08/20194950Rlplpnasyeic24/21/2019Metabolic acidosis, normal anion gap (NAG) 04/08/2019Nausea and vpobmbcx36/21/2019Postoperative fever04/08/2019Sinus hpipjjqcnea79/21/7197Wcjevp46/20/2019Addison's fbqgazf2203/30/20194435Myeywa20/12/2019 Overview (05/23/2022): Prostate cancer / [facility] / Prostatectomy / no chemo or radiation to follow / 2011 Former smoker, stopped smoking in distant past03/30/2019Acid lfyctf1403/30/2019HTN (hypertension)03/30/2019 Assessment & Plan (05/26/2023 10:58 AM EST): Hypertension is stable in light of florinef for orthostasis that is currently well controlled and pt without c/o symptoms. Continue all meds Moxtydsyjgmpji87/12/2019 Assessment & Plan (05/26/2023 10:58 AM EST): Lipid abnormalities are well controlled, continue lipitor Zmwuvtxyd22/12/2019Restless leg /12/2019Lumbar zkwoyqxzoyy27/12/2019 Tremors of nervous wkqhdh5703/30/2019 Overview (05/23/2022): Tremors of hands & legs bilateral but mostly right side / difficult to dx parkinsons due to RLS& patient taking Requip Diverticulosis large intestine w/o perforation or abscess w/o gsfqdjeo73/22/2019 Tubular adenoma of colon01/07/2019Encounter for screening /25/2019 Pulmonary qbuapbgd07/05/2019Acute kidney eyzouqe7404/07/2018Major depressive disorder, single episode, hnqcypvjpkc66/20/2018Atherosclerotic heart disease of hoopa coronary artery without angina aqswghai64/01/2018 Overview (05/23/2022): Triple bypass Assessment & Plan (05/26/2023 10:57 AM EST): Coronary artery disease is Stable Continue GDMT- Asa, lipitor, metoprolol continue risk factor modifications- heart healthy diet, regular exercise as tolerated and continue all medications. Encounters DateTypeDepartmentCare EokhCdexcfmysqy17/14/2025Ref[facility] [address] [place] [address] Cherie Fonseca MA Benign hypertensive heart disease without congestive heart failurefrom Last 3 Months Immunizations ImmunizationAdministration DatesNext DueInfluenza, High Dose Seasonal, Preservative Free03/20/2018,03/04/2016Td (adult), vxkahvobacv98/29/2001Tdap 05/01/2010,03/31/2010Yellow Fever10/27/1991 Family History Medical HistoryRelationNameCommentsCoronary artery diseaseBrotherHeart failure Brothercoronary artery bypassBrotherDiabetesMotherRelationNameStatusComments BrotherMother Social History Tobacco UseTypesPacks/DayYears UsedDateSmoking Tobacco: FormerCigarettes Smokeless Tobacco: Never Tobacco Cessation:Counseling Given: Not Answered Alcohol UseStandard Drinks/WeekCommentsNot Currently0 (1 standard drink = 0.6 oz pure alcohol)occasionalUT Safety & EnvironmentAnswerDate RecordedFear of Current or Ex-PartnerNot on file07/10/2023Emotionally AbusedNot on file07/10/2023 Physically AbusedNot on file07/10/2023Sexually AbusedNot on file07/10/2023 Physically or Sexually AbusedNot on file07/10/2023Sex and Gender Information ValueDate RecordedSex Assigned at BirthNot on fileLegal CyfPbtj2511/14/2021 11:31 PM EDTGender IdentityNot on fileSexual OrientationNot on file Last Filed Vital Signs Vital SignReadingTime TakenCommentsBlood Zwofxvni938/78006/23/2024 10:50 AM EST Nwzti240906/23/2024 10:50 AM XFOAxdepjxdbbl48.4 ??C (99.4 ??F)06/12/2018 1:52 PM ESTRespiratory Rate--Oxygen Eqegxdannz78%06/23/2024 10:50 AM ESTInhaled Oxygen Concentration--Qzghjd936 kg (225 lb)06/23/2024 10:50 AM NJFRdfqsj364.7 cm (5' 8 )06/23/2024 10:50 AM ESTBody Mass Index34.21006/23/2024 10:50 AM EST Plan of Treatment Health MaintenanceDue DateLast DoneCommentsCT Rkigvjfbkqrk85/10/1951Colonoscopy 1Colorectal Cancer Znoabomyy10/10/1951iabetes: Hemoglobin A1C 1950FIT-DNA1950FIT1950FOBT1950Medicare Annual Wellness (AWV)08/26/19500018Hvwbuqlykahek42/10/1951iabetes: Retinopathy Hdxrpvwhl71/10/1961 Depression Wltxmjqye77/10/1963Fall Risk Ddwyovxab95/10/2016COVID-19 Vaccine ( season)502/04/2025, 04/04/2023, 05/04/2022, Additional history existsInfluenza Vaccine (#1)502/04/2025, 05/19/2023, 03/11/2023, Additional history existsDiabetes: Urine Protein Fxvvmznul45/14/041657/ Adult Ucbafcl56/, 05/01/2010, 03/31/2010, Additional history existsZoster PztuatqyHriouoqfd87/12/2021, 1Pneumococcal Vaccine: 50+ JzbveEhdxnzpur05/12/2025, 06/25/2021, 03/19/2018, Additional history existsHIB VaccinesAged OutNo longer eligible based on patient's age to complete this topic HPV VaccinesAged OutNo longer eligible based on patient's age to complete this topicIPV VaccinesAged OutNo longer eligible based on patient's age to complete this topicMeningococcal B VaccineAged OutNo longer eligible based on patient's age to complete this topicMeningococcal VaccineAged OutNo longer eligible based on patient's age to complete this topicRotavirus VaccinesAged OutNo longer eligible based on patient's age to complete this topic Insurance Care Teams Team MemberRelationshipSpecialtyStart DateEnd Date Janette Molina MD [address] [facility] [address] [facility] - General05/23/22
--- OUTSIDE RECORDS SUMMARY | 2025-03-14 08:29 | XMS_ITS | Clinical Summary ---
Author Organization [facility] Address [id number] [address] [place] [address] Care Team Providers Care Public Speaker Name Role Phone Janette Molina MD Primary Care Provider [phone] Allergies No known active allergies Medications MedicationSigDispense QuantityRefillsLast FilledStart DateEnd DateStatus hydrocortisone (CORTEF) 20 mg tablet Take 20 mg by mouth. Take 20 mg in the am, take 10 mg in the evening. Active lisinopril (PRINIVIL,ZESTRIL) 5 mg tablet Take 5 mg by mouth daily.Active levothyroxine (SYNTHROID, LEVOTHROID) 150 MCG tablet Take 150 mcg by mouth daily.09/20/2018Active simvastatin (ZOCOR) 20 mg tablet Take 20 mg by mouth daily.09/20/2018Active coenzyme Q10 100 mg capsule Take 100 mg by mouth daily.Active warfarin (COUMADIN) 2.5 mg tablet TAKE 4 TABLETS BY MOUTH FRIDAY & TAKE 3 TABLETS all other days or per clinic3 11/13/2018Active multivitamin (THERAGRAN) tablet Take 1 tablet by mouth daily.Active fludrocortisone (FLORINEF) 0.1 mg tablet every other day.Active hydrocortisone (CORTEF) 10 mg tablet Take 10 mg by mouth daily.Active citalopram (CeleXA) 20 mg tablet Take 20 mg by mouth daily.Active omeprazole (PriLOSEC) 40 mg capsule Take 40 mg by mouth daily.Active docosahexaenoic acid/epa (FISH OIL ORAL) Take 600 mg by mouth daily.Active rOPINIRole XL (REQUIP XL) 8 mg 24 hr tablet Take 8 mg by mouth nightly.Active METOPROLOL TARTRATE ORAL Take 25 mg by mouth daily.Active metFORMIN (GLUCOPHAGE) 500 mg tablet Take 1 tablet by mouth 2 (two) times a day.Active insulin glargine,hum.rec.anlog (LANTUS U-100 INSULIN SUBQ) Inject 20 Units under the skin nightly.Active liraglutide (VICTOZA 2-ALEXIS) 0.6 mg/0.1 mL (18 mg/3 mL) pen injector Inject 1.8 mg under the skin daily.Active Active Problems ProblemNoted DateDiagnosed DateRectal zygppjlj80/29/9818Wsvgwsuo99/29/2020 Tubular adenoma of colon01/07/2019Diverticulosis large intestine w/o perforation or abscess w/o lhaekqhi08/22/2019Encounter for screening hahsvdueaww59/25/2019 Family History Medical HistoryRelationNameCommentsArthritisBrotherClotting disorderBrotherColon cancerBrotherDiabetesBrotherHeart diseaseBrotherHyperlipidemiaBrotherProstate cancerBrotherStrokeBrotherDepressionDaughterArthritisFatherArthritisMother DiabetesMotherArthritisSisterBreast cancerSisterClotting disorderSister DepressionSisterDiabetesSisterHeart diseaseSisterKidney diseaseSisterOvarian cancerSisterStomach cancerSisterVision lossSisterNo Known ProblemsSonRelation NameStatusCommentsBrotherDeceasedDaughterAliveFatherDeceasedMotherDeceasedSister DeceasedSonAlive Social History Tobacco UseTypesPacks/DayYears UsedDateSmoking Tobacco: FormerCigarettes0.56 Smokeless Tobacco: FormerChewAlcohol UseStandard Drinks/WeekCommentsNot Currently0 (1 standard drink = 0.6 oz pure alcohol)ChildcareAnswerDate Recorded AhlrawqcsByivsgr41/12/2019EmploymentAnswerDate RecordedEmploymentUnknown 10/28/2018Purpose - LifeAnswerDate RecordedPurpose and direction in lifeUnknown 1Sex and Gender InformationValueDate RecordedSex Assigned at BirthNot on fileLegal FunAevy7512/22/2014 11:28 AM EDTGender IdentityNot on fileSexual OrientationNot on file Last Filed Vital Signs Vital SignReadingTime TakenCommentsBlood Ancukrkq789/7010 2:42 PM EDT Srngz0558/03/2020 11:10 AM REVEpwjkcgspdy14.2 ??C (97.1 ??F)03/16/2020 2:42 PM EDTRespiratory Umlh003901/20/2020 10:10 AM EDTOxygen Zerjrlmilc95%01/20/2020 11:30 AM EDTInhaled Oxygen Concentration--Ttngbp418.2 kg (249 lb 9.6 oz)03/16/2020 2:42 PM MBYKhjwuu442.7 cm (5' 8 )03/16/2020 2:42 PM EDTBody Mass Index37.95 03/16/2020 2:42 PM EDT Plan of Treatment Health MaintenanceDue DateLast DoneCommentsDepression Nkfsipnbc91/10/1963Tobacco Nefjedboh78/10/1963Adult BMI Cesqibcia18/10/1969Zoster (Shingles) Vaccine (1 of 2)2000Abdominal Aortic Aneurysm (AAA) Lugfhj9708/27/2015Fall Risk Screening 08/27/2015DTaP,Tdap and Td Vaccines (3 - Td or Tdap), 03/31/2010, 03/16/20018657Sjjxoncscvq77, 10/24/2008Influenza Ezmdvyo14, 03/04/2016 Medical Devices ImplantedTypeAreaManufacturerDevice IdentifierShelf Expiration DateModel / Serial / LotLens Iol Ultrasert 19.5d - [id number] - [id number] Implanted:Qty: 1 on 01/20/2020 [facility] [id number] 19.5 / [id number] / Procedures Procedure NamePriorityDate/TimeAssociated DiagnosisCommentsCOLONOSCOPYRoutine 10/24/2008from Last 3 Months or Most Recently Relevant to Health Maintenance Results * Colonoscopy (10/24/2008) Narrative Authorizing ProviderResult TypeResult StatusNot In System Ref ProvGI PROCEDURE ORDERABLESFinal ResultPerforming OrganizationAddressCity/State/ZIP CodePhone Number [facility] [address] [facility] [place] [address] from Last 3 Months or Most Recently Relevant to Health Maintenance Insurance Care Teams Team MemberRelationshipSpecialtyStart DateEnd Janette Molina MD [address] [place] [address] PCP - GeneralFamily Medicine11/18/18
--- OUTSIDE RECORDS SUMMARY | 2025-03-14 08:33 | XMS_ITS | CCD ---
Author Organization [facility] Care Team Providers Care Communications Controller Name Role Phone Kenneth Cheng Unavailable Unavailable KirnusLevi Unavailable Unavailable UNKNOWN, PCP Unavailable Unavailable SY, JC VASUDEO Unavailable Unavailable Sy, Jc Vasudeo Attending Unavailable Sal Sabillon Primary Care Provider [phone] SALLIE, REID H. Referring Unavailable SAL SABILLON Primary Care Unavailable SALLIE, REID H. Admitting Unavailable SALLIE, REID H. Attending Unavailable SAL SABILLON Primary Care Unavailable SALLIE, REID H. Attending Unavailable SALLIE, REID H. Referring Unavailable SAL SABILLON Primary Care Unavailable SAL SABILLON Primary Care Unavailable CHATHA, GERARDO Admitting Unavailable CHATHAMAMEGERARDO Attending Unavailable SALLIE, REID H. Consulting Unavailable ANDREW WRIGHT Consulting Unavailable SCDENNYINELLIE Admitting Unavailable SCELLIE LAZARO Attending Unavailable SAL [...] FREDERICK Attending Unavailable GEOVANNI, FREDERICK Consulting Unavailable Sal Sablilon Unavailable Sal Sabillon MD Primary Care Provider [phone] Sal Sabillon MD Primary Care Provider Sal Sabillon MD Primary Care Provider [phone] Sal Sabillon MD Primary Care Provider Jeannie Farnsworth DO Attending Provider Donald Islas MD Attending Provider Jeannie Farnsworth Attending Unavailable Jeannie Farnsworth Admitting Unavailable Sal Sabillon Primary Care Unavailable Sal Sabillon Primary Care Unavailable Donald Islas Attending Unavailable Donald Islas Admitting Unavailable DAMARIS MEIER Attending Unavailable BECCA JUNE Attending Unavailable Sal Sabillon MD Primary Care Provider Donald Islas MD Attending Provider Sal Sabillon MD Primary Care Provider [phone] TYLER ESTRADA Attending Unavailable TYLER ESTRADA Referring Unavailable OSCAR ARVIZU Attending Unavailable DEBBIE GOMEZ Attending Unavailable TYLER ESTRADA Attending Unavailable Medications Current Medications MedicationDrug Class(es)DatesSig (Normalized)Sig (Original)0.25 MG, 0.5 MG Dose 3 ML semaglutide 0.68 MG/ML Pen Injector [Ozempic] (2 sources)Ozempic (0.25 or 0.5 MG/DOSE) 2 MG/3ML as directed Subcutaneous Activeacetaminophen 325 mg oral tablet (2 sources)Start: 20-26-1494996 mg, Oral, EVERY 4 HOURS PRN, Pain Mild (1-3), Fever, For temp greater than 100.5 F (38 C), Starting 04/09/19 at 1749 Maximum dose of acetaminophen is 4000 mg from all sources in 24 hours. Acetaminophen / oxyCODONE (5 sources)Opioid AgonistStart: 67-60-2792vptGEMJLX-acetaminophen (PERCOCET) 5- 325 MG per tablet 1 tabletStart: 51-72-7722pgcOOIBUI-acetaminophen (PERCOCET) 5- 325 MG per tablet 1 tabletStart: 04-05-2019 End: 43-68-8886zcgm 1 tablet by mouth every six hours as needed for pain, then take 1 tablet by mouth as needed for painoxyCODONE-acetaminophen (PERCOCET) 5- 325 MG per tablet Indications: Post-op pain Take 1 tablet by mouth every 6 hours as needed for Pain for up to 14 days. Intended supply: 7 days. Take lowest dose possible to manage pain 40 tablet 0 04/05/2019 04/19/2019 Activeamantadine hydrochloride 100 mg oral tablet (13 sources)Influenza A M2 Protein InhibitorStart: 37-05-9986opou 1 tablet by mouth once dailyamantadine (Symmetrel) 100 MG tablet Take 1 tablet by mouth Daily 10/27/2023 Activetake 1 tablet by mouth every twenty-four hoursAmantadine HCl 100 MG 1 tablet Orally Once a day Activeaspirin 81 mg chewable tablet (20 sources)Platelet Aggregation Inhibitor, Nonsteroidal Anti-inflammatory Drug Start: 59-16-0608xhpzsnu 81 MG chewable tablet Chew 1 tablet Daily 08/14/2023 ActiveStart: 03-15-2018 End: 74-80-0807sjxw 1 tablet by mouth once dailyAspirin 81 mg Tablet,Delayed Release (Dr/Ec) Discontinued 81 MG PO Daily 0 March 16, 2018 12:00am September 11, 2020 6:25pmtake 1 tablet by mouth once dailyAspirin 81 81 MG 1 tablet Orally Once a day Activeatorvastatin 40 mg oral tablet (20 sources)HMG-CoA Reductase InhibitorStart: 83-47-3986gbjn 1 tablet by mouth once dailyAtorvastatin 40 mg tablet Active 40 MG PO Daily August 14, 2023 12:00amStart: 03-16-2018 End: 54-84-9037ikdn 1 tablet by mouth once daily at bedtimeAtorvastatin 80 mg Tablet Discontinued 80 MG PO Daily at bedtime 0 March 16, 2018 12:00am August 14, 2023 1:36pmtake 1 tablet by mouth in the morningatorvastatin (Lipitor) 20 MG tablet Take 1 tablet by mouth in the morning. 0 Activecalcium chloride 0.0014 meq/ml / potassium chloride 0.004 meq/ml / sodium chloride 0.103 meq/ml / so dium lactate 0.028 meq/ml injectable solution (2 sources)Start: 32-38-0207zdxjtjij ringers infusioncitalopram 20 mg oral tablet (20 sources)Serotonin Reuptake InhibitorStart: 03-15-2018 End: 06-42-9329yyhq 1 tablet by mouth once dailyCitalopram 20 mg tablet Active 20 MG PO Daily August 14, 2023 12:00amCoenzyme Q-10 100 MG (1 source)take 1 capsule by mouth once dailyCoenzyme Q-10 100 MG 1 capsule with a meal Orally Once a day Activeubidecarenone 100 mg oral capsule (20 sources)Start: 26-38-3985yuur 10 capsules by mouth once dailyCoenzyme Q10 100 mg capsule Active 100 MG PO Daily August 14, 2023 12:00amStart: 03-15-2018 End: 21-84-8257Nnsdffbr Q10 (Co Q-10) 100 mg Capsule Discontinued 100 MG PO Daily March 15, 2018 12:00am March 16, 2018 1:09pmtake 1 capsule by mouth every twenty-four hoursCoenzyme Q-10 100 MG 1 capsule with a meal Orally Once a day ActiveCPAP Machine MISC (4 sources)CPAP Machine MISC by Does not apply route 0 Activedonepezil hydrochloride 10 mg oral tablet (20 sources)Start: 12-23-2023 End: 09-73-4887cdvd 1 tablet by mouth once dailydonepezil (Aricept) 10 MG tablet Indications: Cognitive decline Take 1 tablet (10 mg) by mouth Daily 30 tablet 12/21/2024 12/21/2025 ActiveStart: 09-11-2020 End: 83-25-5814trvn 1 tablet by mouth once dailyDonepezil 10 mg tablet Discontinued 10 MG PO Daily September 11, 2020 12:00am September 14, 2020 9:22pm72 hr fentaNYL 0.025 mg/hr transdermal system (4 sources)Opioid AgonistStart: patch, Transdermal, Administer over 72 Hours, EVERY 72 HOURS, First dose (after last modification) on 04/11/19 at 1600Start: 41-50-9924fpjcc 1 dose transdermal route every hourfentaNYL (DURAGESIC) 25 MCG/HR 1 patchStart: 04-07-2019 End: 11-95-8524tmwgqHHC (SUBLIMAZE) injection 50 mcgStart: 33-65-3532dugomJQG (SUBLIMAZE) injection 50 mcgfludrocortisone acetate 0.1 mg oral tablet (20 sources)Start: 03-98-1205jooz 1 tablet by mouth once dailyfludrocortisone (Florinef) 0.1 MG tablet Indications: Type 2 diabetes mellitus with other circulatory complications (HCC) TAKE 1 TABLET BY MOUTH DAILY 90 tablet 1 11/22/2024 ActiveStart: 55-70-4936kiyp 1 tablet by mouth every other day fludrocortisone (Florinef) 0.1 MG tablet Take 1 tablet by mouth every other day 12/30/2023 ActiveStart: 90-66-3368eorh 1 tablet by mouth four times weekly Fludrocortisone 0.1 mg tablet Active 0.1 MG PO 4 times per week August 14, 2023 12:00amStart: 04-08-2019 End: 48-71-7136xwlp 0.1 mg by mouth once daily0.1 mg, Oral, DAILY, First dose (after last modification) on 04/10/19 at 0900Start: 03-15-2018 End: 81-20-6693qyla 1 tablet by mouth every other dayFludrocortisone 0.1 mg tablet Discontinued 0.1 MG PO every other day March 15, 2018 12:00am August 14, 2023 1:37pmtake 1 tablet by mouth four times weeklyFludrocortisone Acetate 0.1 MG 1 tablet Orally four times a Week Activetake 1 tablet by mouth once dailyfludrocortisone (FLORINEF) 0.1 MG tablet Take 0.1 mg by mouth daily 0 Activegabapentin 800 mg oral tablet (20 sources)Anti-epileptic AgentStart: 10-05-2024 End: 81-70-4573uvbo 1 tablet by mouth twice dailygabapentin (Neurontin) 800 MG tablet Indications: Neurogenic pain TAKE 1 TABLET BY MOUTH TWICE DAILY 60 tablet 5 12/21/2024 ActiveStart: 45-99-8967wbfd 800 mg by mouth three times daily Gabapentin Active 800 MG PO Three times daily January 29, 2024 12:00amStart: 83-67-0485mjst 1 tablet by mouth twice dailyGabapentin 800 mg tablet Active 800 MG PO Twice daily January 29, 2024 12:00amStart: 08-14-2023 End: 83-13-8023xxrg 1 tablet by mouth twice dailyGabapentin 600 mg tablet Discontinued 600 MG PO Twice daily August 14, 2023 12:00am January 29, 2024 3:08pmStart: 09-11-2020 End: 23-79-4216cbko 1 tablet by mouth at bedtimeGabapentin 800 mg tablet Discontinued 800 MG PO Bedtime September 11, 2020 12:00am August 14, 2023 1:36pm take 3 capsules by mouth every twelve hoursGabapentin 100 MG 3 capsule Orally twice a day for 30 days Active End: 15-74-7565vepu 1 capsule by mouth three times dailygabapentin (NEURONTIN) 300 MG capsule Take 300 mg by mouth 3 times daily. 0 03/30/2019 Discontinued glucagon (rdna) 1 mg injection (2 sources)Antihypoglycemic AgentStart: 94-21-2399uoql 1 mL intravenous route every hour1 mg, Intramuscular, PRN, Low blood sugar, Blood glucose less than 70 mg/dL and patient NOT ALERT or NPO and does not have IV access., Starting Fri04/09/19 at 1749 After administration, attempt intravenous access and start D5W at 100 mL/hr. Repeat blood glucose in 15 minutes x2 and notify provider.glucose 0.4 mg/mg oral gel (6 sources)Start: 11-28-330564 g, Oral, PRN, Low blood sugar, Starting Fri04/09/19 at 1749 If blood glucose less than 50 mg/dLand patient ALERT and TOLERATING PO, give 2 tubes glucose gel. If blood glucose less than 70 mg/dL and patient ALERT and TOLERATING PO, give 1 tube glucose gel. Repeat blood glucosein 15 minutes. If blood glucose is less than 70 mg/dL, repeat treatment and recheck blood glucose in 15 minutes x2 and notify provider.Start: 91-62-5232865 mL/hr, Intravenous, at 100 mL/hr, PRN, Low blood sugar, Starting Fri04/09/19 at 1749 Start infusion following administration of dextrose 50% or glucagon.Start: 93-20-796527.5 g, Intravenous, PRN, Low blood sugar, Blood glucose less than 70 mg/dL and patient NOT ALERT or NPO., Starting Fri04/09/19 at 1749 If patient does not respond within 5 minutes, repeat dose x1. Start D5W at 100 mL/hour until ordering provider can be reached. Repeat blood glucose in 15 minutes.If blood glucose is less than 70 mg/dL, repeat treatment and recheck blood glucose in 15 minutes x2. If using Glucostabilizer, dose as instructed per system.Start: 56-06-1190rlcgqio (GLUTOSE) 40 % oral gel 15 gStart: 04-08-2019 dextrose 5 % viafvlbj18 hr guaiFENesin 600 mg extended release oral tablet (2 sources)Start: 77-37-3279abte 600 mg by mouth twice rkqqa988 mg, Oral, 2 TIMES DAILY, First dose (after last modification) on Fri04/09/19 at 2100 Do not crush or break.hydrocortisone 20 mg oral tablet (20 sources)CorticosteroidStart: 11-29-2024 End: 99-96-9711dpnv 0.5 tablet by mouth in the morning, then take 0.5 tablet by mouth in the evening, then take 0.5 tablet by mouth at bedtimehydrocortisone (Cortef) 20 MG tablet Indications: Adrenal insufficiency (HCC) Take 0.5 tablets (10 mg) by mouth in the morning and 0.5 tablets (10 mg) in the evening and 0.5 tablets (10 mg) before bedtime. 135 tablet 3 11/29/2024 11/24/2025 ActiveStart: 94-15-8708fcui 2 tablets by mouth in the morning, then take 1 tablet by mouth in the eveninghydrocortisone (Cortef) 10 MG tablet Indications: Type 2 diabetes mellitus with other circulatory complications (HCC) TAKE 2 TABLETS BY MOUTH IN THE MORNING and TAKE 1 TABLET BY MOUTH IN THE EVENING 270 tablet 1 11/02/2024 ActiveStart: 01-02-5472Ivpaibvihguonq Acetate (Anusol-Hc) 25 mg suppository Active 25 MG AZ Daily 7 May 31, 2024 1:00amStart: 30-13-5166hntt 2 tablets by mouth in the morning, then take 1 tablet by mouth in the evening hydrocortisone (Cortef) 10 MG tablet Indications: Type 2 diabetes mellitus with other circulatory complications (CMS/HCC) TAKE 2 TABLETS BY MOUTH IN THE MORNING AND ONE TABLET BY MOUTH IN THE AOQLKMM552 tablet 1 05/05/2024 ActiveStart: 08-14-2023 End: 05-44-5632iqgo 1 tablet by mouth once daily in the morningHydrocortisone 20 mg tablet Active 20 MG PO Every morning August 14, 2023 12:00amStart: 92-80-1565qbwe 1 tablet by mouth once daily at bedtimeHydrocortisone 10 mg tablet Active 10 MG PO Daily at bedtime August 14, 2023 12:00amStart: 74-29-8067wulj 20 mg by mouth twice daily20 mg, Oral, 2 TIMES DAILY, First dose (after last modification) on Fri04/09/19 at 2100Start: 03-15-2018 End: 12-08-2758dbdx 1 tablet by mouth twice dailyHydrocortisone 20 mg Tablet Discontinued 20 MG PO Twice daily March 15, 2018 12:00am August 14, 2023 1:36pminsulin glargine 100 unt/ml injectable solution (8 sources)Insulin AnalogStart: 85-32-5878dnknng 20 [IU] by subcutaneous injection once daily20 Units, Subcutaneous, NIGHTLY, First dose (after last modification) on Fri04/09/19 at 2100Lantus 100 UNIT/ML as directed Subcutaneous 20 units Activeinsulin glargine (BASAGLAR KWIKPEN) 100 UNIT/ML injection pen 20 Units nightly 0 Activeinsulin lispro 100 unt/ml injectable solution (5 sources)Insulin AnalogStart: 55-97-6302elbqpop lispro (HUMALOG) injection vial 6 UnitsStart: 09-73-73919-6 Units, Subcutaneous, NIGHTLY, First dose (after last modification) on Fri04/09/19 at 2100 If continuous tube feedings/TPN/NPO, give correction dose based on result, no reduction in dose. If eating or bolus tube feeding: Medium Dose Corrective Algorithm G lucose: Dose: If <139 &nb sp; No Insulin 140-199 &nbsp ; 1 Unit 20 0-249 2 Units 250-299 3 Units 300-349 4 Units 350-400 5 Units Above 400 6 UnitsStart: Units, Subcutaneous, 3 TIMES DAILY WITH MEALS, First dose (after last modification) on Fri04/09/19 at 1815 Medium Dose Corrective Algorithm Glucose: Dose: If <139&nb sp; No Insulin 140-199 2 Units 200-249 4 Units 250-299 6 Units& amp;nbsp;300-349 8 Units 350-400 10 Units Above 400 & amp;nbsp; 12 Unitsinsulin, aspart, human 100 unt/ml injectable solution (4 sources)Insulin Analoginsulin aspart (NOVOLOG) 100 UNIT/ML injection vial Indications: sliding scale Inject into the skinIndications: sliding scale 0 Activelevothyroxine sodium 0.1 mg oral tablet (20 sources)l-ThyroxineStart: 01-29-2024 End: 82-27-3408kcop 1 tablet by mouth once daily before mealtimelevothyroxine (Synthroid, Levoxyl) 100 MCG tablet Indications: Hypothyroidism, unspecified Take 1 tablet (100 mcg) by mouth Daily before meals 90 tablet 3 11/29/2024 11/24/2025 ActiveStart: 68-20-6011guoo 150 ug by mouth once mcg, Oral, DAILY, First dose (after last modification) on 04/10/19 at 0700 Tube feeding (TF) interaction, obtain physician order to manage, recommend holding TF for 30 minutes before and after dose.Start: 03-15-2018 End: 83-63-7082taum 1 tablet by mouth once dailyLevothyroxine 150 mcg tablet Discontinued 150 MCG PO Daily August 14, 2023 12:00am January 3:07pmtake 1 tablet by mouth once dailylevothyroxine (Synthroid, Levoxyl) 125 MCG tablet Take 1 tablet by mouth Daily Activetake 1 tablet by mouth once daily in the morningLevothyroxine Sodium 150 MCG 1 tablet on an empty stomach in the morning Orally Once a day Active3 ml liraglutide 6 mg/ml pen injector (6 sources)GLP-1 Receptor AgonistStart: 89-22-8862Inopjxvjfyw (VICTOZA) SC injection 1.2 mgVictoza 18 MG/3ML as directed Subcutaneous ActiveLiraglutide (VICTOZA SC) Inject 1.2 mg into the skin daily 0 Activelisinopril 5 mg oral tablet (20 sources)Angiotensin Converting Enzyme InhibitorStart: 69-60-8449ytrk 1 tablet by mouth once dailyLisinopril 5 mg tablet Active 5 MG PO Daily August 14, 2023 12:00amStart: 83-04-8303waxf 10 mg by mouth once daily10 mg, Oral, DAILY, First dose (after last modification) on 04/10/19 at 0900Start: 03-15-2018 End: 73-86-5722atyu 1 tablet by mouth once dailyLisinopril 20 mg tablet Discontinued 20 MG PO Daily March 15, 2018 12:00am August 14, 2023 1:36pm take 1 tablet by mouth once dailylisinopril (PRINIVIL;ZESTRIL) 10 MG tablet Take 10 mg by mouth daily 0 Activemagnesium gluconate 550 mg oral tablet (11 sources)take 1 tablet by mouth once dailymagnesium 30 MG tablet Take 1 tablet by mouth Daily Activemagnesium oxide 400 mg oral tablet (12 sources)Start: 18-98-9528iznc 1 tablet by mouth once dailyMagnesium Oxide 400 mg (241.3 mg magnesium) tablet Active 400 MG PO Daily 2024 9:23amStart: 08-14-2023 End: 15-57-9939Gfpukerqk Oxide 400 mg (241.3 mg magnesium) tablet Discontinued 400 MG PO Every 48 hours August 14, 2023 12:00am 2024 9:23amStart: 69-32-2044nlsu 1 tablet by mouth every other dayMagnesium Oxide 400 MG 1 Tablet Orally every other day for 90 days Dec, ActiveStart: 02-08-2019 End: 73-24-8734fgdj 1 tablet by mouth once dailymagnesium oxide (MAG-OX) 400 (241.3 Mg) MG TABS tablet Take 400 mg by mouth daily 02/08/2019 04/08/2019 Discontinuedmetoprolol tartrate 100 mg oral tablet (20 sources)beta-Adrenergic BlockerStart: 80-33-5580fxat 1 tablet by mouth twice dailyMetoprolol Tartrate 100 mg tablet Active 100 MG PO Twice daily January 29, 2024 12:00amStart: 08-14-2023 End: 77-25-0953fczc 1 tablet by mouth twice dailyMetoprolol Tartrate 75 mg tablet Discontinued 75 MG PO Twice daily August 14, 2023 12:00am January 29, 2024 3:09pmStart: 09-11-2020 End: 20-96-7901idqs 1 tablet by mouth twice dailyMetoprolol Tartrate 25 mg Tablet Discontinued 25 MG PO Twice daily September 11, 2020 12:00am August 14, 2023 1:36pmStart: 06-41-0336lfck 75 mg by mouth twice daily75 mg, Oral, 2 TIMES DAILY, First dose (after last modification) on Fri04/09/19 at 2100take 3 tablets by mouth in the morningmetoprolol tartrate (Lopressor) 25 MG tablet Take 3 tablets by mouth in the morning and 3 tablets before bedtime. ActiveMultiple Vitamins-Minerals (CENTRUM ADULT PO) (11 sources)take 1 tablet by mouth once dailyMultiple Vitamins-Minerals (CENTRUM ADULT PO) Take 1 tablet by mouth Daily ActiveMultiple Vitamins-Minerals (THERAPEUTIC MULTIVITAMIN-MINERALS) tablet (3 sources)take 1 tablet by mouth once dailyMultiple Vitamins-Minerals (THERAPEUTIC MULTIVITAMIN-MINERALS) tablet Take 1 tablet by mouth daily 0 Active Multivitamin Adults - (6 sources)Multivitamin Adults - as directed Orally ActiveMultivitamin preparation (3 sources)Start: 10-20-9225wffg 1 tablet by mouth once dailyMultivitamin Active 1 TAB PO Daily August 14, 2023 12:00amMultivitamin tablet (3 sources)Start: 43-38-0722muxx 1 tablet by mouth once dailyMultivitamin tablet Active 1 TAB PO Daily August 14, 2023 12:00amStart: 95-95-1781katn 1 tablet by mouth once dailyMultivitamin tablet Active 1 TAB PO Daily August 13, 2023 11:00pmOmega 3 Fish Oil (4 sources)Bradley 3 Fish Oil one tablet daily ActiveOmega-3 Fatty Acids (FISH OIL) 600 MG CAPS (3 sources)Bradley-3 Fatty Acids (FISH OIL) 600 MG CAPS Take by mouth daily 0 Activepantoprazole 40 mg delayed release oral tablet (2 sources)Proton Pump InhibitorStart: 69-72-4146zmwn 40 mg by mouth once daily before iaurkrdxj71 mg, Oral, DAILY BEFORE BREAKFAST, First dose (after last modification) on 04/10/19 at 0700 Do not crush or break.polyethylene glycol 3350 44330 mg powder for oral solution (1 source)Osmotic LaxativeStart: 23-29-4955wxfoycnvrxoa glycol (GLYCOLAX) packet 17 g100 ml potassium chloride 0.1 meq/ml injection (4 sources)Start: 73-88-4592naox 10 mL intravenous route every hour as mEq, Intravenous, at 100 mL/hr, PRN, Potassium Replacement, Starting Fri04/09/19 at 1749 K Lab Replacement Action 3.1- 3.5 10 mEq IVPB x 4 doses (40 mEq Total) 2.7-3.0 10 mEq IVPB x 6 doses (60 mEq Total) < 2.7 &nb sp; CALL PHYSICIAN and 10 mEq IVPB x 6 doses (60 mEq Total) Infuse at 10 mEq/hr. Repeat Potassium lab 1 hour after final administration. Not for use in patients with CrCl less than 30 mL/min.Start: 40-88-5474ktwvymwhh chloride (KLOR-CON M) extended release tablet 40 mEqStart: 74-17-7388gdxijxwvk chloride 10 mEq/100 mL IVPB (Peripheral Line) Start: 25-14-7943dhsjygqoc chloride (KLOR-CON M) extended release tablet 40 mEq1 ml promethazine hydrochloride 25 mg/ml injection (1 source)PhenothiazineStart: 54-58-4038oextllqbrwkk (PHENERGAN) injection 6.25 mgrOPINIRole 2 mg oral tablet (20 sources)Nonergot Dopamine AgonistStart: 40-96-6239nbxl 8 mg by mouth once daily in the evening8 mg, Oral, EVERY EVENING, First dose (after last modification) on Fri04/09/19 at 1815Start: 03-15-2018 End: 77-99-8079yuiq 1 tablet by mouth once dailyRopinirole 8 mg Tablet Extended Release 24 Hr Discontinued 8 MG PO Daily March 15, 2018 12:00amApril 2020 6:29pm End: 96-96-3847jymv 1 tablet by mouth every twenty-four hours in the morning rOPINIRole XL (Requip XL) 8 MG 24 hr tablet Take 1 tablet by mouth in the morning. 12/21/2024 Discontinuedtake 8 mg by mouth once daily in the evening rOPINIRole (REQUIP) 0.5 MG tablet Take 8 mg by mouth every evening 0 Active Semaglutide (1 source)Start: 33-85-7157pskroc 1 mg by subcutaneous injection every week Semaglutide (Ozempic) 1 mg/dose (4 mg/3 mL) pen injector Active 1 MG SUBCUT every week 2024 12:00amsemaglutide (Ozempic) 4 MG/3ML solution pen-injector (13 sources)Start: 82-47-6676wpmbth 1 mg by subcutaneous injection every week semaglutide (Ozempic) 4 MG/3ML solution pen-injector Indications: Type 2 diabetes mellitus with hyperglycemia, without long-term current use of insulin (HCC) Inject 1 mg under the skin 1 (one) time per week 9 mL 1 11/29/2024 Active Start: 01-20-2024 End: 23-82-4376xjfoux 1 mg by subcutaneous injection every weeksemaglutide (Ozempic) 4 MG/3ML solution pen-injector Inject 1 mg under the skin 1 (one) time per week 01/20/2024 11/29/2024 Discontinued (Reorder)Start: 07-41-9813rtegoz 1 mg by subcutaneous injection every weeksemaglutide (Ozempic) 4 MG/3ML solution pen-injector Inject 1 mg under the skin 1 (one) time per week 01/20/2024 Active simvastatin 20 mg oral tablet (12 sources)HMG-CoA Reductase InhibitorStart: 31-91-0319mpaw 20 mg by mouth once daily20 mg, Oral, NIGHTLY, First dose (after last modification) on Fri04/09/19 at 2100Start: 16-78-3907dezx 1 tablet by mouth once dailysimvastatin (ZOCOR) 20 MG tablet Take 20 mg by mouth nightly 0 09/20/2018 ActiveStart: 03-15-2018 End: 62-30-0081krvp 1 tablet by mouth once dailySimvastatin 20 mg tablet Discontinued 20 MG PO Daily March 15, 2018 12:00am March 16, 2018 1:09pm 3 ml sodium chloride 9 mg/ml injection (11 sources)Start: 52-84-1999euaf 10 mL intravenous route once as inqasi75 mL, Intravenous, PRN, Line Care, After every IV line use, Starting Fri04/09/19 at 1749Start: 04-08-2019 End: 04-08-20190.9 % sodium chloride infusionStart: 04-07-2019 End: 70-09-6094yzckdh chloride flush 0.9 % injection 10 mLStart: 04-07-2019 End: 04-08-20190.9 % sodium chloride bolusStart: 16-81-8992oxhomt chloride flush 0.9 % injection 10 mLubidecarenone 100 mg / vitamin e 5 unt oral capsule (11 sources)Start: 26-54-4621nqlc 1 capsule by mouth once dailycoenzyme Q-10 100 MG capsule Take 1 capsule by mouth Daily 08/14/2023 Activewarfarin (COUMADIN) daily dosing (placeholder) (2 sources)Start: 72-36-6054fntcybij (COUMADIN) daily dosing (placeholder)Start: 77-97-8854xvecalus (COUMADIN) daily dosing (placeholder) Completed/Discontinued Medications MedicationDrug Class(es)DatesSig (Normalized)Sig (Original)albuterol 0.833 mg/ml / ipratropium bromide 0.167 mg/ml inhalant solution (1 source)Anticholinergic, beta2-Adrenergic AgonistStart: 04-07-2019 End: 84-12-9339sxsjnvhtlqi-albuterol (DUONEB) nebulizer solution 1 ampulecalcium carbonate 1250 mg / cholecalciferol 125 unt oral tablet (12 sources)Vitamin DStart: 03-15-2018 End: 25-67-5514qoob 1 tablet by mouth twice dailyCalcium Carbonate-Vitamin D3 (Calcium 500 + D (D3)) 500 mg(1,250mg) -125 unit Tablet Discontinued 1TAB PO Twice daily March 15, 2018 12:00am March 15, 2018 11:48amStart: 03-15-2018 End: 12-76-2058amsd 1 tablet by mouth once dailyCalcium Carbonate-Vitamin D3 (Calcium 600 + D(3)) 600 mg calcium- 200 unit Capsule Discontinued 1 TAB PO Daily March 15, 2018 12:00am September 11, 2020 6:33pmcarbidopa 25 mg / levodopa 100 mg oral tablet (20 sources)Aromatic Amino Acid Decarboxylation Inhibitor, Aromatic Amino Acid Start: 09-11-2020 End: 06-11-6666udpg 1 tablet by mouth twice dailyCarbidopa-Levodopa 25-100 mg tablet Discontinued 25 - 100 TAB PO Twice daily September 11, 2020 12:00am September 14, 2020 9:22pm End: 91-19-1461ydrt 1 tablet by mouth in the morningcarbidopa-levodopa (Parcopa) 25-100 MG disintegrating tablet Take 1 tablet by mouth in the morning and 1 tablet in the evening. 12/21/2024 Discontinuedtake 1 tablet by mouth in the morningcarbidopa-levodopa (Sinemet) 25-100 MG tablet Take 1 tablet by mouth in the morning and 1 tablet before bedtime. 0 Activetake 1 tablet by mouth every twenty-four hoursCarbidopa-Levodopa 25-100 MG 1 tablet Orally ONCE A DAY for 30 days Activetake 1 tablet by mouth twice dailyCarbidopa-Levodopa 25-100 MG 1 tablet Orally Two times a DAY for 30 Activecefepime (MAXIPIME) 2 g IVPB minibag (1 source)Start: 04-08-2019 End: 29-38-9974vyxsksxc (MAXIPIME) 2 g IVPB minibagcephalexin 500 mg oral capsule (3 sources)Cephalosporin AntibacterialStart: 04-05-2019 End: 75-59-0433kocg 1 capsule by mouth three times dailycephALEXin (KEFLEX) 500 MG capsule Take 1 capsule by mouth 3 times daily for 7 days 21 capsule 0 04/13/2019 Discontinued (Stop Taking at Discharge)cholestyramine resin 4000 mg powder for oral suspension (14 sources)Bile Acid Sequestrant End: 85-52-3394kpud 1 dose by mouth once dailycholestyramine (Questran) 4 g packet use 1 (ONE) PACKET BY MOUTH DAILY 12/21/2024 DiscontinuedOmega-3 Fatty Acids-Fish Oil (6 sources)Start: 03-15-2018 End: 90-83-4003mwxv 1 capsule by mouth once dailyOmega-3 Fatty Acids-Fish Oil (Fish Oil) 300-1,000 mg Capsule Discontinued 1 CAP PO Daily March 14, 2018 11:00pm March 16, 2018 12:09pmStart: 03-15-2018 End: 54-58-9868cunn 1 capsule by mouth once dailyOmega-3 Fatty Acids-Fish Oil (Fish Oil) 300-1,000 mg Capsule Discontinued 1 CAP PO Daily March 15, 2018 12:00am March 16, 2018 1:09pm0.4 ml enoxaparin sodium 100 mg/ml prefilled syringe (2 sources)Low Molecular Weight HeparinStart: 04-08-2019 End: 45-76-8974kwzekg 40 mg by subcutaneous injection once daily40 mg, Subcutaneous, DAILY, First dose (after last modification) on Fri04/09/19 at 2100Fish Oils (11 sources) End: 35-04-4231pceu 1 capsule by mouth once dailyomega-3 (fish oil) 600 MG capsule Take 1 capsule by mouth 1 (one) time each day at the same time 09/2024 Discontinuedtake 1 capsule by mouth once dailyomega-3 (fish oil) 600 MG capsule Take 1 capsule by mouth 1 (one) time each day at the same time Active gadoteridol (PROHANCE) injection 15 mL (1 source)Start: 04-07-2019 End: 17-87-3122jcojqewwxpy (PROHANCE) injection 15 mL1 ml HYDROmorphone hydrochloride 1 mg/ml cartridge (1 source)Opioid AgonistStart: 04-07-2019 End: 87-40-3804JLCLDclcwtrqz (DILAUDID) injection 1 mgibuprofen 600 mg oral tablet (6 sources)Nonsteroidal Anti-inflammatory DrugStart: 03-15-2018 End: 76-04-7487hgma 1 tablet by mouth twice dailyIbuprofen 600 mg Tablet Discontinued 600 MG PO Twice daily March 15, 2018 12:00am February 1:09pm10 ml lidocaine hydrochloride 10 mg/ml injection (1 source)Antiarrhythmic, Amide Local AnestheticStart: 04-05-2019 End: 07-20-4825thjjzydct PF 1 % injection 1 mLmemantine hydrochloride 10 mg oral tablet (20 sources)S-nkxssx-P-aspartate Receptor AntagonistStart: 08-14-2023 End: 73-20-1494qkzz 1 tablet by mouth in the morningmemantine (Namenda) 10 MG tablet Indications: Cognitive decline Take 1 tablet (10 mg) by mouth in the morning and 1 tablet (10 mg) before bedtime. 60 tablet 11 12/23/2023 12/21/2024 Discontinued (Reorder)take 1 tablet by mouth in the morningmemantine (Namenda) 10 MG tablet Take 1 tablet by mouth in the morning and 1 tablet before bedtime.0 ActivemetFORMIN hydrochloride 500 mg oral tablet (20 sources)BiguanideStart: 03-15-2018 End: 11-32-5367agpj 1 tablet by mouth once dailyMetformin 500 mg tablet Discontinued 500 MG PO Daily March 15, 2018 12:00am August 14, 2023 1:36pm take 1 tablet by mouth in the morningmetFORMIN (Glucophage) 500 MG tablet Take 1 tablet by mouth in the morning and 1 tablet before bedtime. 0 Activetake 1 tablet by mouth every twelve hoursmetFORMIN HCl 1000 MG 1 tablet with a meal Orally twice a day ActiveMultivitamin (Multiple Vitamins) Tablet (6 sources)Start: 03-15-2018 End: 21-39-9374xwqg 1 tablet by mouth once dailyMultivitamin (Multiple Vitamins) Tablet Discontinued 1 TAB PO Daily March 14, 2018 11:00pm August 14, 2023 12:35pmStart: 03-15-2018 End: 73-65-9391kdcy 1 tablet by mouth once dailyMultivitamin (Multiple Vitamins) Tablet Discontinued 1 TAB PO Daily March 15, 2018 12:00am August 14, 2023 1:35pmomeprazole 40 mg delayed release oral capsule (20 sources)Proton Pump InhibitorStart: 03-15-2018 End: 24-75-7870gclr 1 capsule by mouth once dailyOmeprazole 40 mg Capsule,Delayed Release(Dr/Ec) Discontinued 40 MG PO Daily March 15, 2018 12:00am September 11, 2020 6:29pmondansetron 4 mg disintegrating oral tablet (10 sources)Serotonin-3 Receptor AntagonistStart: 09-11-2020 End: 62-86-7655tiyq 1 tablet by mouth every six hours as needed for nausea and vomitingOndansetron 4 mg tablet,disintegrating Discontinued 4 MG PO Q6H as needed for nausea and vomiting September 11, 2020 12:00am September 14, 2020 9:22pmStart: 04-07-2019 End: 04-07-20194 mg, Intravenous, EVERY 6 HOURS PRN, Nausea, Vomiting, Starting Fri04/09/19 at 1749Start: 04-05-2019 End: 40-38-6126aptbupubbrf (ZOFRAN) injection 4 mgpiperacillin-tazobactam (ZOSYN) 3.375 g in dextrose 5 % 50 mL IVPB (mini-bag) (1 source)Start: 04-07-2019 End: 42-26-2467ucudpjqgkmtx-tazobactam (ZOSYN) 3.375 g in dextrose 5 % 50 mL IVPB (mini-bag)Semaglutide (6 sources)Start: 08-14-2023 End: 18-32-8019Jqlesrddiaf (Ozempic) 0.25 mg or 0.5 mg (2 mg/3 mL) pen injector Discontinued MG SUBCUT As DirectedAugust 14, 2023 12:00am May 07, 2024 9:20am FreeTextSig: as directed Subcutaneous; Note: Source Status: Taking; Provider: Jesse Savage ( )Start: 08-14-2023 End: 54-75-8590Runxqmjdkte (Ozempic) 0.25 mg or 0.5 mg (2 mg/3 mL) pen injector Discontinued MG SUBCUT As DirectedM[facility]20[facility] 11:00pm May 07, 2024 8:20am FreeTextSig: as directed Subcutaneous; Note: Source Status: Taking; Provider: Jesse Savage ( )Start: 94-14-1819Iydusykltel (Ozempic) 0.25 mg or 0.5 mg (2 mg/3 mL) pen injector Active MG SUBCUT As Directed August 14, 2023 12:00am FreeTextSig: as directed Subcutaneous; Note: Source Status: Taking; Provider: Jesse Savage ( )Semaglutide,0.25 or 0.5MG/DOS, 2 MG/3ML solution pen-injector (11 sources)Start: 08-14-2023 End: 16-35-5072Beytvwaxytp,0.25 or 0.5MG/DOS, 2 MG/3ML solution pen-injector As Directed 08/14/2023 12/21/2024 DiscontinuedStart: 75-27-4932Ibfqizvwkyr,0.25 or 0.5MG/DOS, 2 MG/3ML solution pen-injector As Directed 08/14/2023 Active sennosides, care home 8.6 mg oral tablet (2 sources)Start: 04-05-2019 End: 65-35-1093fdgn 1 tablet by mouth twice dailysenna (SENOKOT) 8.6 MG tablet Take 1 tablet by mouth 2 times daily for 14 days 28 tablet 0 04/05/2019 04/08/2019 DiscontinuedtiZANidine 4 mg oral tablet (20 sources)Central alpha-2 Adrenergic AgonistStart: 09-11-2020 End: 52-06-9709zggg 1 tablet by mouth twice dailyTizanidine 4 mg tablet Discontinued 4 MG PO Twice daily September 11, 2020 12:00am August 14, 2023 1: 35pmtiZANidine HCl 4 MG as directed Oral once a day for 30 ActiveTriamcinolone (12 sources)CorticosteroidStart: 48-98-6960Lpdoabp -40 mg Jul, 40 mg Start: 63-82-5865Ynxxsmi -40 mg Jun, 40 mgvancomycin (VANCOCIN) 1,250 mg in dextrose 5 % 250 mL IVPB (1 source)Start: 04-08-2019 End: 55-22-1718oblqmlzqpm (VANCOCIN) 1,250 mg in dextrose 5 % 250 mL IVPB warfarin sodium 3 mg oral tablet (20 sources)Vitamin K AntagonistStart: 09-11-2020 End: 48-11-6149pqky 3 tablets by mouth once dailyWarfarin 3 mg Tablet Discontinued 9 MG PO Daily September 11, 2020 12:00am August 14, 2023 1:35pm FRI DAYS ONLYStart: 09-11-2020 End: 67-72-9111awpl 1 tablet by mouth five times weeklyWarfarin 6 mg Tablet Discontinued 6 MG PO 5 TIMES PER WEEK September 11, 2020 12:00am August 14, 2023 1:35pmStart: 09-11-2020 End: 93-04-6681wzyb 9 mg by mouth once dailyWarfarin Discontinued 9 MG PO Daily September 11, 2020 12:00am August 14, 2023 1:35pm AYS ONLYStart: 04-13-2019 End: 53-83-5384utvwheyy (COUMADIN) tablet 5 mgStart: 50-88-3135utowokbd (COUMADIN) tablet 7.5 mgStart: 36-80-0068qoibfcup (COUMADIN) tablet 15 mgStart: 04-08-2019 End: 11-62-3625nyzfemxk (COUMADIN) tablet 10 mgtake 5 mg by mouth once daily warfarin (COUMADIN) 4 MG tablet Indications: S-HD-Ota-Sun Take 5 mg by mouth daily Indications: R-WO-Dvg-Sun 0 Activetake 1 tablet by mouth once daily warfarin (COUMADIN) 7.5 MG tablet Indications: M-W-F Take 7.5 mg by mouth daily Indications: M-W-F 0 Active Problems Active Problems Problem ClassificationProblemDateDocumented DateEpisodic/ChronicAbdominal pain (6 sources)Abdominal pain; Translations: [Unspecified abdominal pain]09-14-2020 EpisodicAcute and unspecified renal failure (11 sources)Acute kidney failure, unspecified; Translations: [Acute renal failure syndrome]Onset: 224738-44-2868JtwzbdefAlgke and unspecified renal failure (1 source)Acute injury of kidney; Translations: [TIFFANI (acute kidney injury) (HCC)]Acute cerebrovascular disease (4 sources)Lacunar infarction; Translations: [Other cerebral infarction due to occlusion or stenosis of small artery]44-82-7849JfwogicEoqjl myocardial infarction (3 sources)Non-ST elevation (NSTEMI) myocardial infarction; Translations: [Non- ST elevation (NSTEMI) myocardial infarction]Onset: 56-93-1273LgfostlDtjzm posthemorrhagic anemia (1 source)Acute posthemorrhagic anemia; Translations: [Acute posthemorrhagic anemia]Onset: 97-39-8027CsvgbqppRnilrampkftato/social admission (4 sources)Patient encounter status; Translations: [Dietary counseling and surveillance]90-67-1900VcqrrhkeGbryod of prostate (1 source)Personal history of malignant neoplasm of prostate; Translations: [Personal history of malignant neoplasm of prostate]Onset: 16-18-7959Zpmgkcdo Cardiac dysrhythmias (3 sources)Sinus tachycardia; Translations: [Sinus tachycardia]Onset: 04-08-2019 66-81-4825EynursvQrdxxdt kidney disease (15 sources)Chronic kidney disease, unspecified; Translations: [Chronic kidney disease]Onset: 699590-48-6152JpvyvnmUljrklc kidney disease (9 sources)Chronic kidney disease; Translations: [Chronic kidney disease, stage III (moderate)]Onset: 05-31-2021 Resolved: 59-99-0167Eafwguf obstructive pulmonary disease and bronchiectasis (1 source)Chronic obstructive pulmonary disease, unspecified; Translations: [Chronic obstructive pulmonary disease, unspecified]Onset: 74-17-1491Sadmlle Coagulation and hemorrhagic disorders (1 source)Thrombocytopenia, unspecified; Translations: [Thrombocytopenia, unspecified]Onset: 85-42-3732YuklcpoIqoebcitewyu of device; implant or graft (2 sources)Arteriosclerosis of coronary artery bypass graft; Translations: [Atherosclerosis of coronary arterybypass graft(s) without angina pectoris] Onset: 07-19-5448CcxsnwbNdepzdua atherosclerosis and other heart disease (18 sources)Chronic ischemic heart disease, unspecified; Translations: [Atherosclerotic heart disease of nativecoronary artery with unstable angina pectoris]Onset: 500052-45-0250YoqsvhfPupbbxvuoq and other anemia (6 sources)Anemia of renal disease; Translations: [Anemia in chronic kidney disease]ChronicDeficiency and other anemia (2 sources)Anemia in chronic kidney disease; Translations: [ANEMIA IN CHRONIC KIDNEY DISEASE]Onset: 05-31-2021 Resolved: 60-56-8354BrdyyqpVrdpkerw mellitus with complications (20 sources)Type 2 diabetes mellitus with diabetic chronic kidney disease; Translations: [Disorder of kidney due to diabetes mellitus]Onset: 04-07-2018 Resolved: 94-43-7256OblphpdJjijdgsh mellitus without complication (10 sources)Diabetes mellitus; Translations: [Type 2 diabetes mellitus]Onset: 961345-28-3065FwmfhkbXabaxoxci of lipid metabolism (11 sources)Other hyperlipidemia; Translations: [Hyperlipidemia]Onset: 076429-17-8293ZeiakikRylbgnmlmsxgaw and diverticulitis (5 sources)Diverticulosis of large intestine; Translations: [Diverticulosis large intestine w/o perforation orabscess w/o bleeding]Onset: 01-07-2019 52-85-7086Kcetwotvbk disorders (6 sources)Gastro-esophageal reflux disease without esophagitis; Translations: [Gastroesophageal reflux disease]Onset: 795814-79-7071OqtrubrUzbzcbxkbh disorders (1 source)Esophageal disorders; Translations: [Gastro-esophageal reflux disease with esophagitis, without bleeding]Essential hypertension (16 sources)Hypertensive disorder; Translations: [Essential hypertension]Onset: 799434-96-6347UfewkroJszon and electrolyte disorders (13 sources)Hypokalemia; Translations: [Metabolic acidosis, normal anion gap (NAG)]Onset: 031670-82-8606KjqpqkkcVucufowrvvxinoic hemorrhage (3 sources)Rectal hemorrhage; Translations: [Hemorrhage of anus and rectum] Onset: 602087-67-5302YssbvhkjAbnzp valve disorders (7 sources)Nonrheumatic aortic (valve) insufficiency; Translations: [Nonrheumatic pulmonary valve insufficiency]Onset: 66-26-5482UlebzxcNewnbtlkssse with complications and secondary hypertension (20 sources)Hypertensive chronic kidney disease with stage 1 through stage 4 chronic kidney disease, or unspecified chronic kidney disease; Translations: [Chronic kidney disease due to hypertension]Onset: 04-07-2018 Resolved: 23-43-3685RnplbjtMzthstebe neoplasm without specification of site (6 sources)Malignant neoplastic disease; Translations: [Cancer]Onset: 03-30-2019 71-77-7477LgkhjvgXyfv disorders (9 sources)Depressive disorder; Translations: [Major depression, single episode] Onset: 222750-02-0380PlbukhuPoan disorders (1 source)Major depressive disorder, single episode, unspecified; Translations: [Major depressive disorder, single episode, unspecified]Onset: 69-72-0317Vlspce and vomiting (17 sources)Nausea and vomiting; Translations: [Nausea with vomiting, unspecified]Onset: 455784-91-0777EbzajbdxVvdjqeeqwbo deficiencies (4 sources)Vitamin D deficiency; Translations: [Vitamin D deficiency, unspecified]22-96-6954AppmulzOzuzvumfd or stenosis of precerebral arteries (18 sources)Bilateral stenosis of carotid arteries; Translations: [Occlusion and stenosis of bilateral carotid arteries]Onset: 797361-88-2780Uqpmbzq Osteoarthritis (18 sources)Arthritis of hand; Translations: [Primary osteoarthritis, left hand] ChronicOther aftercare (1 source)watermelon inspector (current) use of insulin; Translations: [alf (current) use of insulin]Onset: 44-11-8208CsihqhydSbbtg aftercare (1 source)watermelon inspector (current) use of aspirin; Translations: [alf (current) use of aspirin]Onset: 82-66-9744QvindexxLdxce aftercare (4 sources)Long-term current use of systemic steroid; Translations: [alf (current) use of systemic steroids]27-33-9720JfahvzdtFrmbu aftercare (1 source)watermelon inspector (current) use of oral hypoglycemic drugs; Translations: [alf (current) use of oral hypoglycemic drugs]Onset: 06-07-0762Wpltd bone disease and musculoskeletal deformities (4 sources)Osteopenia; Translations: [Other specified disorders of bone density and structure, unspecified site]55-58-5861GnvoudihOudpi circulatory disease (2 sources)Orthostatic hypotension; Translations: [Orthostatic hypotension] Onset: 98-94-6621DwqzonxlUlcio connective tissue disease (2 sources)Muscle pain; Translations: [MYALGIA, UNSPECIFIED SITE]EpisodicOther connective tissue disease (18 sources)Neurogenic pain; Translations: [Neuralgia and neuritis, unspecified] Onset: 706384-92-4181GvjpdmotDhsic connective tissue disease (18 sources)Spasm of cervical paraspinous muscle; Translations: [Other muscle spasm]Onset: 221032-86-3155GewmvbiwVhkyn diseases of kidney and ureters (12 sources)Secondary hyperparathyroidism; Translations: [Secondary hyperparathyroidism of renal origin]67-17-5535NjefxlsPahgf diseases of kidney and ureters (9 sources)Secondary hyperparathyroidism of renal origin; Translations: [Secondary hyperparathyroidism (of renal origin)]Onset: 05-31-2021 Resolved: 95-24-4089GstsatcKddcu ear and sense organ disorders (1 source)Sensorineural hearing loss, bilateral; Translations: [Sensorineural hearing loss, bilateral]06-40-6212UdfwligDyqdy ear and sense organ disorders (1 source)Bilateral tinnitus; Translations: [Tinnitus, bilateral]05-05-2024 EpisodicOther endocrine disorders (7 sources)Primary adrenocortical insufficiency; Translations: [Glucocorticoid deficiency]Onset: 848157-18-8667MdimubfNnrcg endocrine disorders (12 sources)[place]'s disease; 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]Onset: 638432-71-3708CdecovbLfleo endocrine disorders (2 sources)Primary adrenocortical insufficiency; 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]Onset: 17-48-7715IqabnvuWhdjd endocrine disorders (4 sources)Hypoadrenalism; Translations: [Unspecified adrenocortical insufficiency]49-87-9727MddywdqCebae gastrointestinal disorders (6 sources)Diarrhea; Translations: [Diarrhea, unspecified]06-56-7732Vgamlfzl Other hereditary and degenerative nervous system conditions (1 source)Restless legs syndrome; Translations: [Restless legs syndrome]Onset: 96-04-4577WegquddDzzce hereditary and degenerative nervous system conditions (20 sources)Restless legs; Translations: [Restless legs syndrome]Onset: 963940-99-0912XqqtmkvGpuwe inflammatory condition of skin (7 sources)Psoriasis; Translations: [Psoriasis, unspecified]Onset: 08-12-2017 54-85-5543ItpgetcGvcdz nervous system disorders (2 sources)Meralgia paresthetica; Translations: [Meralgia paresthetica]Onset: 137044-54-2614AvoqrgdBbcgm nervous system disorders (6 sources)Tardy left ulnar nerve palsy; Translations: [Lesion of ulnar nerve, left upper limb]ChronicOther nervous system disorders (6 sources)Tardy right ulnar nerve palsy; Translations: [Lesion of ulnar nerve, right upper limb]ChronicOther nervous system disorders (14 sources)Polyneuropathy; Translations: [Polyneuropathy, unspecified]Onset: 543889-19-9059FveosffHdeiy nervous system disorders (1 source)Postoperative pain ; Translations: [Post-op pain]EpisodicOther nervous system disorders (18 sources)Impaired cognition; Translations: [Other symptoms and signs involving cognitive functions and awareness]Onset: 022957-31-4083Cdvrhwzp Other nutritional; endocrine; and metabolic disorders (1 source)Body mass index (BMI) 36.0-36.9, adult; Translations: [Body mass index (BMI) 36.0-36.9, adult]Onset: 02-17-2877BsdvevpCahpe nutritional; endocrine; and metabolic disorders (1 source)Obesity, unspecified; Translations: [Obesity, unspecified]Onset: 62-17-7879XsgngmvKlojk nutritional; endocrine; and metabolic disorders (9 sources)Hypomagnesemia; Translations: [Hypomagnesemia]67-21-9781BgqserlCgcbf nutritional; endocrine; and metabolic disorders (6 sources)Hypomagnesemia; Translations: [Disorders of magnesium metabolism] ChronicOther nutritional; endocrine; and metabolic disorders (2 sources)Obesity; Translations: [Obesity, unspecified]ChronicOther screening for suspected conditions (not mental disorders or infectious disease) (3 sources)Increased bilirubin level; Translations: [Elevated bilirubin]Onset: 357617-66-3882RkfbvxrKrvwt screening for suspected conditions (not mental disorders or infectious disease) (20 sources)Raised TSH level; Translations: [Blood chemistry abnormal]Onset: 974150-85-8017RqfholehWozsfaobr`s disease (20 sources)Parkinson's disease; Translations: [Parkinson's disease]Onset: 100422-94-6297TjdqmnbBipvyokap heart disease (14 sources)Other pulmonary embolism without acute cor pulmonale; Translations: [Pulmonary embolism]Onset: 04-07-2018 Resolved: 322246-59-3912GbuemqpfOcsnxffz codes; unclassified (3 sources)Obstructive sleep apnea (adult) (pediatric); Translations: [Obstructive sleep apnea (adult)(pediatric)]Onset: 004293-09-2342Geoamiq Residual codes; unclassified (20 sources)Obstructive sleep apnea syndrome; Translations: [Obstructive sleep apnea]Onset: 130392-59-9141XweuubhPpagzrfb codes; unclassified (8 sources)Periodic limb movement disorder; Translations: [Periodic limb movement disorder]Onset: 956050-59-8688MmyowlcIhjzurnq codes; unclassified (6 sources)Periodic leg movements of sleep ; Translations: [Periodic limb movement disorder]Onset: 511509-51-9073FejetuoQtmijyvsm and history of mental health and substance abuse codes (1 source)Personal history of nicotine dependence; Translations: [Personal history of nicotine dependence]Onset: 27-28-2353WknbnoclEvcenzobsrw; intervertebral disc disorders; other back problems (7 sources)Lumbar spondylosis; Translations: [Lumbar spondylosis]Onset: 238025-93-1630IvbgefcNdlxbge disorders (9 sources)Hypothyroidism, unspecified; Translations: [Hypothyroidism]Onset: 797172-43-8634KerxpfgVgwyqdicwhwu (1 source)CHRN KIDNEY DISEASE STG 3 UNSP; Translations: [CHRN KIDNEY DISEASE STG 3 UNSP]Onset: 06-17-2022 Past or Other Problems Problem ClassificationProblemDateDocumented DateEpisodic/ChronicChronic obstructive pulmonary disease and bronchiectasis (1 source)Bronchitis; Translations: [Bronchitis]EpisodicComplications of surgical procedures or medical care (5 sources)Acute pulmonary insufficiency following thoracic surgery; Translations: [Postoperative fever]Onset: 737837-99-2084ApsszwioBwzqveodkp and other anemia (3 sources)Iron deficiency anemia; Translations: [Iron deficiency anemia]Onset: 593468-43-4357OyphkcbrLrojb connective tissue disease (14 sources)Cramp; Translations: [Cramp and spasm]Onset: EpisodicOther injuries and conditions due to external causes (1 source)Systemic inflammatory response syndrome; Translations: [SIRS (systemic inflammatory response syndrome) (HCC)]EpisodicOther nervous system disorders (6 sources)Tremor; Translations: [Tremors of nervous system]Onset: 03-30-2019 62-22-2722IxumxwzeInymv nervous system disorders (4 sources)Abnormal gait; Translations: [Abnormality of gait and mobility]Onset: 280348-03-5044XbunqqzrOvwqylac codes; unclassified (2 sources)Dyssomnia; Translations: [Other sleep disturbances]Onset: 08-04-2018 EpisodicSepticemia (except in labor) (4 sources)Sepsis; Translations: [Sepsis]Onset: 613736-56-3299Afszbnpa Spondylosis; intervertebral disc disorders; other back problems (9 sources)Spinal stenosis of lumbar region; Translations: [Low back pain]Onset: 366543-28-8118CvlpdktdEqnvfkqen-sssbrar disorders (5 sources)Stopped smoking; Translations: [Former smoker, stopped smoking in distant past]Onset: 046019-74-1745Cvdjtmy disorders (7 sources)Disorder of thyroid gland; Translations: [Thyroid disease]Onset: 412480-79-6910Wfajtcsk Results Test NameValueInterpretationReference RangeFacilityGlucose (Bld) [Mass/Vol]on 46-22-5585Kdcvvbo Blood, FVH714 mg/dLNOMS HealthcareLaboratory - Hematology and Cell countson 98-71-8010DlS7z (Bld) [Mass fraction]7.6 %NOMS HealthcareNo Panel Informationon 42-00-8194UVSJ HealthcareErythrocyte distribution width Auto (RBC) [Ratio]on 36-99-5719Qxvnjixbdwh distribution width (RBC) [Ratio]Erythrocyte distribution width [Ratio] by Automated count11.0-15.0[facility] HospitalEstimated glomerular filtration rate (GFR) non- Americanon 94-27-5195TNO/1.73 sq M.predicted among non-blacks MDRD (S/P/Bld) [Vol rate/Area]Estimated glomerular filtration rate (GFR) non- AmericanLow>=60 mL/min/1.73m 2FOhioHealthHematocrit Auto (Bld) [Volume fraction]on 03-06-1585Clvezjxqcp (Bld) [Volume fraction]Hematocrit [Volume Fraction] of Blood by Automated count42.0-54.0[facility] Hemoglobin [Mass/volume] in Bloodon 66-82-1773Xccamcyroq (Bld) [Mass/Vol] Hemoglobin [Mass/volume] in Blood14.0-18.0[facility] HospitalIron binding capacity [Mass/volume] in Serum or Plasmaon 75-95-7588Uopw binding capacity [Mass/Vol]Iron binding capacity [Mass/volume] in Serum or Plasma 250.0-450.0[facility] HospitalIron saturation [Mass Fraction] in Serum or Plasmaon 47-79-2087Mmos saturation [Mass fraction]Iron saturation [Mass Fraction] in Serum or PlasmaCommunity Memorial HospitalLaboratory - Chemistry and Chemistry - challengeon 04-53-7416Dtwqmwd [Mass/Vol]3.3 g/dLLow 3.4-5.0[facility] HospitalCalcium [Mass/Vol]8.7 mg/dL8.5-10.1 [facility] HospitalChloride [Moles/Vol]100 mmol/U77-232QtveayqfmCommunity Memorial HospitalCO2 [Moles/Vol]28.5 mmol/L21.0-32.0[facility] HospitalCreatinine [Mass/Vol]1.89 mg/dLHigh0.70-1.30[facility] HospitalGFR/1.73 sq M.predicted MDRD (S/P/Bld) [Vol rate/Area]43 mL/min/{1.73_m2}Low>=60 mL/min/1.73m 2FOhioHealthGlucose [Mass/Vol]289 mg/gIEvuj27-705OeuusviptCommunity Memorial HospitalIron [Mass/Vol] 111.0 ug/dL65.0-175.0[facility] HospitalMagnesium [Mass/Vol]1.7 mg/dLLow1.8-2.4FOhioHealthPotassium [Moles/Vol]4.5 mmol/L 3.5-5.1FMetroHealth Main Campus Medical Centerodium [Moles/Vol]137 mmol/D328-571 Community Memorial HospitalUrate [Mass/Vol]6.2 mg/dL3.5-7.2FOhioHealthUrea nitrogen [Mass/Vol]25.0 mg/dLHigh7.0-18.0[facility] HospitalUrea nitrogen/Creatinine [Mass ratio]13.2 mg/mgCommunity Memorial HospitalLaboratory - Urinalysison 87-19-0094Venugid (U) [Mass/Vol]15.6 mg/dLHigh<=11.9[facility] HospitalLeukocytes [#/volume] corrected for nucleated erythrocytes in Blood by Automated counon 46-83-2106EKT corrected for nucl RBC Auto (Bld) [#/Vol]Leukocytes [#/volume] corrected for nucleated erythrocytes in Blood by Automated coun4.0-11.0[facility] HospitalMCH Auto (RBC) [Entitic mass]on 85-32-3740YOB (RBC) [Entitic mass]MCH [Entitic mass] by Automated count25.9-34.0[facility] HospitalMCHC Auto (RBC) [Mass/Vol]on 95-42-2920VNNM (RBC) [Mass/Vol]MCHC [Mass/volume] by Automated count29.9-35.2FOhioHealthMCV Auto (RBC) [Entitic vol]on 38-92-0257ZWB (RBC) [Entitic vol]MCV [Entitic volume] by Automated count80.0-94.0[facility] HospitalNo Panel Information on 540552-Mdzcujw Vitamin D Total64.6 ng/mLCommunity Memorial HospitalComment on above:<20 ng/mL Vit D dbufzvrjk68-<30 ng/mL Vit D cskywqrlocor91-170 ng/mL Vit D sufficient>100 ng/mL Potential Toxicity Parathyroid Hormone (Intact)59 pg/dN31-30BqhcaucmiCommunity [facility] Hospital Comment on above:Performed at: [place] [facility] [place] [id number] Director: Prakash Barbour PhD, Phone: [phone] Level 3.5 mg/dL2.6-4.7FOhioHealthUrine Random Mjhtbrhnsg554.65 mg/dL20.00-300.00[facility] HospitalPlatelet mean volume Auto (Bld) [Entitic vol]on 38-01-0993Kpbnengg mean volume (Bld) [Entitic vol]Platelet mean volume [Entitic volume] in Blood by Automated count9.5-13.5FOhioHealthPlatelets Auto (Bld) [#/Vol]on 36-06-5288Gqahfzxqf (Bld) [#/Vol]Platelets [#/volume] in Blood by Automated wqvou137-769EinhunfcvCommunity Memorial HospitalRBC Auto (Bld) [#/Vol]on 76-30-0221NFX (Bld) [#/Vol]Erythrocytes [#/volume] in Blood by Automated countLow4.70-6.10Centervilleerum or plasma anion gap determinationon 58-66-8151Rxnjq gap [Moles/Vol] Serum or plasma anion gap determinationCommunity Memorial HospitalUrine protein/creatinine ratioon 61-61-6177Pvhuntl/Creatinine (U) [Ratio]Urine protein/creatinine ratioCommunity Memorial Hospital36on Regarding stress test result from 07/07/2024: MD Wendy Rico MA Please reassure the patient that his stress test was normal Thank you Patient's made aware.NormalKeenan Private HospitalOffice Visit on 97-83-9056Wffpxu-up [id number] Don Elkins 1950 M Date Provider Department Center 06/23/2024 DAMARIS CHAVARRIA CARD [facility] Family History Problem Relation Age of Onset Diabetes Mother Coronary artery disease Brother Other Brother Heart failure Brother Family Status - Relation Status Age at Mother Brother Level of Service:[address]92 [place] OFFICE/OUTPATIENT ESTABLISHED MOD MDM 30 [facility]Bas[facility] Auto (Bld) [#/Vol]Ordered By: Donald Islas on 85-84-1260Tcgsfwtdk (Bld) [#/Vol]Automated basophil count 0.0-0.2FOhioHealthBasophils/100 WBC Auto (Bld)Ordered By: Donald Islas on 81-43-7959Xjvrmwess/100 WBC (Bld)Automated basophil %.[facility] HospitalComplete Blood Count Auto Diffon 98-97-9605Vfhptedpw (Bld) [#/Vol]0.1 10*3/uLNormal0.0-0.2The [facility] Physician GroupComment on above:Result Comment: PERFORMED BY: [facility] [address] [place] [address] PATHOLOGIST BUSINESS TEAM LEADER HYUN FRANK M.D.Performed By: #### CBC #### [facility] [address] [place] [address] USABasophils/100 WBC (Bld)1.0 %Normal.The [facility] Physician GroupComment on above:Performed By: #### CBC #### [facility] [address] [place] [address] USAEosinophils (Bld) [#/Vol]0.2 10*3/uLNormal0.0-0.45The [facility] Physician GroupComment on above:Performed By: #### CBC #### [facility] [address] [place] [address] USAEosinophils/100 WBC (Bld)2.1 %Normal.The [facility] Physician GroupComment on above:Performed By: #### CBC #### [place] [address] USAErythrocyte distribution width (RBC) [Ratio]13.1 %Normal 12.0-14.8The [facility] Physician GroupComment on above:Performed By: #### CBC #### [place] [address] USAHematocrit (Bld) [Volume fraction]44.4 %Ugzemb59.8-50.0The [facility] Physician GroupComment on above:Performed By: #### CBC #### [place] [address] USAHemoglobin (Bld) [Mass/Vol]15.3 g/bRYmbwrg38.0-17.0The [facility] Physician GroupComment on above:Performed By: #### CBC #### [place] [address] USALymphocytes (Bld) [#/Vol]1.9 10*3/uLNormal1.00-4.8The [facility] Physician GroupComment on above:Performed By: #### CBC #### [place] [address] USALymphocytes/100 WBC (Bld)21.2 %Normal.The [facility] Physician GroupComment on above:Performed By: #### CBC #### [place] [address] USAMCH (RBC) [Entitic mass]31.9 hrVpvfbj67.5-35.2The [facility] Physician GroupComment on above:Performed By: #### CBC #### [place] [address] USAMCV (RBC) [Entitic vol]93.0 tPHvilxf19.5-101The [facility] Physician GroupComment on above:Performed By: #### CBC #### [facility] [address] [place] [address] USAMean Corpuscular HGB Conc34.3 g/iAAjsrfa85.5-35.6The [facility] Physician GroupComment on above:Performed By: #### CBC #### [facility] [address] [place] [address] USAMonocytes (Bld) [#/Vol]0.6 10*3/uLNormal0.0-0.8The [facility] Physician GroupComment on above:Performed By: #### CBC #### [facility] [address] [place] [address] USAMonocytes/100 WBC (Bld)7.1 %Normal.The [facility] Physician GroupComment on above:Performed By: #### CBC #### [facility] [address] [place] [address] USANeutrophils (Bld) [#/Vol]6.0 10*3/uLNormal1.8-7.7The [facility] Physician GroupComment on above:Performed By: #### CBC #### [facility] [address] [place] [address] USANeutrophils/100 WBC (Bld)68.6 %Normal.The [facility] Physician GroupComment on above:Performed By: #### CBC #### [facility] [address] [place] [address] USANRBC%0.2 /100{WBC}Normal0-0.5The [facility]ician Group Comment on above:Performed By: #### CBC #### [facility] [address] [place] [address] USAPlatelet mean volume (Bld) [Entitic vol]10.9 fLHigh 6.6-10.1The [facility] Physician GroupComment on above:Performed By: #### CBC #### [facility] [address] [place] [address] USAPlatelets (Bld) [#/Vol]230 10*3/dZHwbyjh704-078Prm [facility] Physician GroupComment on above:Performed By: #### CBC #### [facility] [address] [place] [address] USARBC (Bld) [#/Vol]4.78 10*6/uLNormal3.90-5.60The [facility] Physician GroupComment on above:Performed By: #### CBC #### [facility] [address] [place] [address] USAWBC (Bld) [#/Vol]8.8 10*3/uLNormal4.1-10.5The [facility] Physician GroupComment on above:Performed By: #### CBC #### [facility] [address] [place] [id number] USAEosinophils Auto (Bld) [#/Vol]Ordered By: Donald Islas on 90-42-0507Nqbznqggqfm (Bld) [#/Vol]Automated eosinophil count0.0-0.45[facility] HospitalEosinophils/100 WBC Auto (Bld)Ordered By: Donald Islas on 98-14-2353Ulccdljqkne/100 WBC (Bld)Automated eosinophil %.[facility] HospitalErythrocyte distribution width Auto (RBC) [Ratio]Ordered By: Donald Islas on 13-36-9475Hvysyojlahb distribution width (RBC) [Ratio] Erythrocyte distribution width [Ratio] by Automated count12.0-14.8Community [facility] HospitalHematocrit Auto (Bld) [Volume fraction]Ordered By: Donald Islas on 26-09-0912Ahvrtrkrgr (Bld) [Volume fraction]Hematocrit [Volume Fraction] of Blood by Automated count38.8-50.0[facility] Hemoglobin [Mass/volume] in BloodOrdered By: Donald Islas on 06-01-2024 Hemoglobin (Bld) [Mass/Vol]Hemoglobin [Mass/volume] in Blood13.0-17.0[facility] HospitalLeukocytes [#/volume] corrected for nucleated erythrocytes in Blood by Automated counOrdered By: Donald Islas on 06-01-2024 WBC corrected for nucl RBC Auto (Bld) [#/Vol]Leukocytes [#/volume] corrected for nucleated erythrocytes in Blood by Automated coun4.1-10.5FOhioHealthLymphocytes Auto (Bld) [#/Vol]Ordered By: Donald Islas on 41-41-7406Xdqntqbfnso (Bld) [#/Vol]Lymphocytes [#/volume] in Blood by Automated count1.00-4.8FirKettering Health Washington TownshipLymphocytes/100 WBC Auto (Bld) Ordered By: Donald Islas on 25-53-6658Yzexqrrsusj/100 WBC (Bld)Lymphocytes/100 leukocytes in Blood by Automated count.[facility] HospitalH Auto (RBC) [Entitic mass]Ordered By: Donald Islas on 65-01-1268QCO (RBC) [Entitic mass]MCH [Entitic mass] by Automated count27.5-35.2FOhioHealthMCHC Auto (RBC) [Mass/Vol]Ordered By: Donald Islas on 99-74-6190VEVY (RBC) [Mass/Vol]MCHC [Mass/volume] by Automated count32.5-35.6FOhioHealthMCV Auto (RBC) [Entitic vol]Ordered By: Donald Islas on 10-64-1965UJU (RBC) [Entitic vol]MCV [Entitic volume] by Automated count83.5-101 [facility] HospitalMonocytes Auto (Bld) [#/Vol]Ordered By: Donald Islas on 54-62-9141Ytxwfhgcp (Bld) [#/Vol]Automated blood monocyte count0.0-0.8 [facility] HospitalMonocytes/100 WBC Auto (Bld)Ordered By: Donald Islas on 98-48-3324Ymzyjapck/100 WBC (Bld)Automated monocyte %.Community Memorial HospitalNeutrophils Auto (Bld) [#/Vol]Ordered By: Donald Islas on 15-82-8509Njtujpgytfi (Bld) [#/Vol]Neutrophils [#/volume] in Blood by Automated count1.8-7.7FOhioHealthNeutrophils/100 WBC Auto (Bld)Ordered By: Donald Islas on 88-18-4101Ygnfufmlktd/100 WBC (Bld)Automated neutrophil %.Community Memorial HospitalNucleated erythrocytes [Presence] in Blood by Automated countOrdered By: Donald Islas on 59-29-4762Nniejqzce RBC Auto Ql (Bld)Nucleated erythrocytes [Presence] in Blood by Automated count0-0.5 [facility] HospitalPSA Screen (Yearly Only)on 72-32-0556ZUG Screen (Yearly Only)<0.097Zftbur0.000-4.000The [facility] Physician GroupComment on above:Order Comment: Is patient <50 yrs? Medicare does not pay <50.: N What is the date of the last PSA Screen?: N/A Is Medicare the insurance?: N Did you verify eligibility (Dx Time) check TestViewGp: YES TO ALLResult Comment: Serial tumor marker results determined by assays using different manufacturers or methods may not be comparable. [facility] Laboratory manager protein and method: [employer] DXI, CHEMILUMINESCENT IMMUNOASSAY. PERFORMED BY: [place] [address] PATHOLOGIST BUSINESS TEAM LEADER HYUN FRANK M.D.Performed By: #### PSAS #### [place] [address] USAPlatelet mean volume Auto (Bld) [Entitic vol]Ordered By: Donald Islas on 24-97-7131Xxuwjtjw mean volume (Bld) [Entitic vol]Platelet mean volume [Entitic volume] in Blood by Automated countHigh6.6-10.1FOhioHealthPlatelets Auto (Bld) [#/Vol]Ordered By: Donald Islas on 12-07-1585Dqmpwnwom (Bld) [#/Vol]Platelets [#/volume] in Blood by Automated nadnv069-053AyjwjjjrsCommunity Memorial HospitalProstate specific Ag [Mass/volume] in Serum or PlasmaOrdered By: Sal Sabillon on 52-36-3176Lxnjdrje specific Ag [Mass/Vol]Prostate specific Ag [Mass/volume] in Serum or Plasma0.000-4.000 [facility] HospitalComment on above:Serial tumor marker results determined by assays using different manufacturers or methods may not be comparable.[facility] manager protein and method:YUNIOR AdsW[employer]EL DXI, CHEMILUMINESCENT IMMUNOASSAY.RBC Auto (Bld) [#/Vol]Ordered By: Donald Islas on 19-28-7989XPF (Bld) [#/Vol]Erythrocytes [#/volume] in Blood by Automated count 3.90-5.60[facility] HospitalWBC Auto (Bld) [#/Vol]Ordered By: Donald Islas on 59-95-3089OZN (Bld) [#/Vol]Leukocytes [#/volume] in Blood by Automated count4.1-10.5FOhioHealthGlucose (Bld) [Mass/Vol] on 57-89-4375Dpznnii Blood, OXO644 mg/dLChildren's Mercy NorthlandLaboratory - Hematology and Cell countson 92-92-9220RiO9s (Bld) [Mass fraction]7.5 %[facility] NorthlandNo Panel Informationon 17-39-8206MXHM HealthcarePathology study report document Ordered By: Brett Hernandez on 14-18-2115Tblwtebso studyCommunity Memorial Hospital Other Glucose Glucometer (BldC) [Mass/Vol]Ordered By: Jeannie Farnsworth on 09-82-8593Cblzrva [Mass/Vol]Capillary blood glucose measurement by glucometer (mass/volume)Community Memorial HospitalComment on above: Random Glucose Reference Range is dependent on time and content of last meal. Glucose of more than 200 mg/dL in a nonstressed, ambulatory subject supports the diagnosis of Diabetes Mellitus.Glucose Poct Glucometerson 07-26-6169Ercalbs5 Glu2: Cleaned MeterNoUNC Health Caldwell Physician GroupComment on above:Result Comment: PERFORMED BY: [facility] [address] [place] [address] PATHOLOGIST BUSINESS TEAM LEADER HYUN FRANK M.D.Performed By: #### GLULS #### Point of Care testing ,Glucose [Mass/Vol]132 mg/dLUF Health North Physician GroupComment on above: Result Comment: Random Glucose Reference Range is dependent on time and content of last meal. Glucose of more than 200 mg/dL in a nonstressed, ambulatory subject supports the diagnosis of Diabetes Mellitus.Performed By: #### GLULS #### Point of Care testing ,Mani 05-21-2024 Specimen: [id number] Received: 05/21/24 Status: GEORGE Dupont Num: [id number] Spec Type: Surgical Subm Dr: Jeannie Farnsworth DO Tissues: A Colon Biopsy (TRANSVERSE POLYP) B Colon Biopsy (ASCENDING POLYP) C Colon Biopsy (CECAL POLYP) D Colon Biopsy (DESCENDING POLYP) Procedures: ZOLTAN/Ayde, Gross/Micro L4/4 Age/ Patient Sex Location Account Attending Physician Don Elkins/Cristhian [id number] Jeannie Farnsworth DO SPEC NUM: [id number] RECD: 05/21/24 STATUS: GEORGE DUPONT NUM: [id number] JIMENA: 05/21/[address]: Jeannie Farnsworth DO ENTERED: 05/21/24-[address] [facility] [address]: SPEC TYPE: Surgical DEPT: S ENTERED BY: [id number] RECV BY: [id number] ORDERED: HE/8, Gross/Micro L4/4 ORDERED: HE/8, Gross/Micro [...] submitted in a single cassette. (1, ns, [id number] A) VEE Specimen: Received: 05/21/24 Status: GEORGE Cristin Num: [id number] Spec Type: Surgical Subm Dr: Jeannie Farnsworth DO Tissues: A Colon Biopsy (TRANSVERSE POLYP) B Colon Biopsy (ASCENDING POLYP) C Colon Biopsy (CECAL POLYP) D Colon Biopsy (DESCENDING POLYP) Procedures: HE/8, Gross/Micro L4/4 Patient: Don Elkins [id number] (Continued) Specimen: Received: 05/21/24 (Continued) Gross Description (Continued) Signed (signature on file) Brett Hernandez MD 05/24/24 1004 Specimen: Received: 05/21/24 Status: GEORGE Dupont Num: [id number] Spec Type: Surgical Subm Dr: Jeannie Farnsworth DO Tissues: A Colon Biopsy (TRANSVERSE POLYP) B Colon Biopsy (ASCENDING POLYP) C Colon Biopsy (CECAL POLYP) D Colon Biopsy (DESCENDING POLYP) Procedures: Sharad DUKES/Gertrudis L4/4 Patient: Don Elkins [id number] (Continued) Specimen: Received: 05/21/24-1252 (Continued) Gross Description (Continued) Part B is [...] A-D: Microscopic examination is performed. CPT Codes 46042 x4 Specimen: Received: 05/21/24 Status: GOERGE Dupont Num: [id number] Spec Type: Surgical Subm Dr: Jeannie Farnsworth, Tissues: A Colon Biopsy (TRANSVERSE POLYP) B Colon Biopsy (ASCENDING POLYP) C Colon Biopsy (CECAL POLYP) D Colon Biopsy (DESCENDING POLYP) Procedures: HE/Ayde, Gross/Micro L4/4 Patient: Don Elkins [id number] (Continued) Sig (more content not included)...NormalDelray Medical Center Physician GroupNo Panel InformationOrdered By: Jeannie Farnsworth on 75-90-4127Zvyoerd Glucose CommentGlu2: cleaned meterCommunity Memorial HospitalBasophils Auto (Bld) [#/Vol]on 93-19-8881Uorfrfeaz (Bld) [#/Vol]Automated basophil count0.0-0.1FOhioHealthBasophils/100 WBC Auto (Bld)on 87-91-2861Niclqwene/100 WBC (Bld)Automated basophil %0.2-2.0[facility] Eosinophils/100 WBC Auto (Bld)on 07-99-8578Jjefnvmmuve/100 WBC (Bld)Automated eosinophil %Low0.9-7.0[facility] HospitalErythrocyte distribution width Auto (RBC) [Ratio]on 06-84-0647Lvyeqbyaasw distribution width (RBC) [Ratio]Erythrocyte distribution width [Ratio] by Automated count11.0-15.0 [facility] HospitalEstimated glomerular filtration rate (GFR) non- Americanon 98-65-7147GXH/1.73 sq M.predicted among non-blacks MDRD (S/P/Bld) [Vol rate/Area]Estimated glomerular filtration rate (GFR) non- AmericanLow>=60 mL/min/1.73m 2FOhioHealthGlobulin Calc (S) [Mass/Vol]on 79-93-3101Rymdlwnn (S) [Mass/Vol]Serum globulin measurement by calculation (mass/volume)Community Memorial HospitalHematocrit Auto (Bld) [Volume fraction]on 95-18-4243Niuuxrcuxt (Bld) [Volume fraction]Hematocrit [Volume Fraction] of Blood by Automated hrqyvLti97.0-54.0[facility] HospitalHemoglobin [Mass/volume] in Bloodon 73-97-4999Yzqcskucvm (Bld) [Mass/Vol]Hemoglobin [Mass/volume] in WyvlaMcy65.0-18.0[facility] HospitalLaboratory - Chemistry and Chemistry - challengeon 05-15-2024 Albumin [Mass/Vol]2.4 g/dLLow3.4-5.0[facility] HospitalALP [Catalytic activity/Vol]47 U/V79-253RyclbuiatCommunity Memorial HospitalALT [Catalytic activity/Vol]34 U/R51-93UnduamrfdCommunity Memorial HospitalAST [Catalytic activity/Vol]23 U/X95-33VrafxznnjCommunity Memorial HospitalBilirubin [Mass/Vol]0.9 mg/dL0.2-1.0[facility] HospitalCalcium [Mass/Vol]8.2 mg/dLLow8.5-10.1FOhioHealthChloride [Moles/Vol]105 mmol/L 98-107Community [facility] HospitalCO2 [Moles/Vol]26.4 mmol/L21.0-32.0 [facility] HospitalCreatinine [Mass/Vol]1.69 mg/dLHigh0.70-1.30 [facility] HospitalGFR/1.73 sq M.predicted MDRD (S/P/Bld) [Vol rate/Area]49 mL/min/{1.73_m2}Low>=60 mL/min/1.73m 2FOhioHealthGlucose [Mass/Vol]149 mg/aFDkpa40-312IqnyeuhofCommunity Memorial Hospital Potassium [Moles/Vol]4.5 mmol/L3.5-5.1FOhioHealthProtein [Mass/Vol]5.2 g/dLLow6.4-8.2FMetroHealth Main Campus Medical Centerodium [Moles/Vol] 137 mmol/I919-894QlpocthwvCommunity Memorial HospitalUrea nitrogen [Mass/Vol]9.0 mg/dL7.0-18.0[facility] HospitalUrea nitrogen/Creatinine [Mass ratio]5.3 mg/mgCommunity Memorial HospitalLaboratory - Hematology and Cell countson 23-80-7195Upveryow granulocytes/100 WBC (Bld)0.4 %0.0-0.5FOhioHealthLeukocytes [#/volume] corrected for nucleated erythrocytes in Blood by Automated counon 72-44-3939IDJ corrected for nucl RBC Auto (Bld) [#/Vol]Leukocytes [#/volume] corrected for nucleated erythrocytes in Blood by Automated counHigh4.0-11.0[facility] HospitalLymphocytes Auto (Bld) [#/Vol]on 50-20-8696Mfytbbrmnrn (Bld) [#/Vol]Lymphocytes [#/volume] in Blood by Automated count1.2-3.8[facility] Lymphocytes/100 WBC Auto (Bld)on 49-68-7541Gbygyqsdcuy/100 WBC (Bld) Lymphocytes/100 leukocytes in Blood by Automated vpxuxCty29.5-60.0[facility] Community HospitalH Auto (RBC) [Entitic mass]on 17-19-9797PYH (RBC) [Entitic mass]MCH [Entitic mass] by Automated count25.9-34.0[facility] HospitalMCHC Auto (RBC) [Mass/Vol]on 94-58-0099UDUS (RBC) [Mass/Vol]MCHC [Mass/volume] by Automated count29.9-35.2FUniversity Hospitals Beachwood Medical CenterV Auto (RBC) [Entitic vol]on 16-65-0119QCU (RBC) [Entitic vol]MCV [Entitic volume] by Automated count80.0-94.0[facility] HospitalMonocytes Auto (Bld) [#/Vol]on 71-93-2868Tjqwwmpxt (Bld) [#/Vol]Automated blood monocyte countHigh 0.3-0.8[facility] HospitalMonocytes/100 WBC Auto (Bld)on 34-95-4150Naossfaoc/100 WBC (Bld)Automated monocyte %1.7-12.0Community Memorial HospitalNeutrophils Auto (Bld) [#/Vol]on 13-29-6956Uokajmlunzk (Bld) [#/Vol]Neutrophils [#/volume] in Blood by Automated countHigh1.4-6.5FOhioHealthNeutrophils/100 WBC Auto (Bld)on 05-15-2024 Neutrophils/100 WBC (Bld)Automated neutrophil %High43.0-75.0[facility] HospitalNo Panel Informationon 41-01-1227Wmlqysdisqa # (Auto)0.1 10 3/uL 0.0-0.7FOhioHealthImmature Granulocyte # (Auto)0.05 10 3/uLHigh0.00-0.03Community [facility] HospitalPlatelet mean volume Auto (Bld) [Entitic vol]on 65-08-7037Fswtgoow mean volume (Bld) [Entitic vol]Platelet mean volume [Entitic volume] in Blood by Automated count9.5-13.5FOhioHealthPlatelets Auto (Bld) [#/Vol]on 73-86-5843Dsnktipqj (Bld) [#/Vol]Platelets [#/volume] in Blood by Automated jysvt152-504PjwhuxvczCommunity Memorial HospitalRBC Auto (Bld) [#/Vol]on 08-98-5275AET (Bld) [#/Vol]Erythrocytes [#/volume] in Blood by Automated countLow4.70-6.10Centervilleerum or plasma albumin/globulin mass ratioon 21-09-1366Tnbbyci/Globulin [Mass ratio]Serum or plasma albumin/globulin mass ratioCentervilleerum or plasma anion gap determinationon 56-50-7429Xgvfg gap [Moles/Vol]Serum or plasma anion gap determinationCommunity Memorial HospitalBasophils Auto (Bld) [#/Vol]on 90-09-8213Rdzygbajo (Bld) [#/Vol]Automated basophil count0.0-0.1FOhioHealthBasophils/100 WBC Auto (Bld)on 96-89-0719Lrkexjgfq/100 WBC (Bld)Automated basophil %0.2-2.0[facility] HospitalEosinophils/100 WBC Auto (Bld)on 05-14-2024 Eosinophils/100 WBC (Bld)Automated eosinophil %0.9-7.0[facility] HospitalErythrocyte distribution width Auto (RBC) [Ratio]on 28-42-5759Kyqakkccwex distribution width (RBC) [Ratio]Erythrocyte distribution width [Ratio] by Automated count11.0-15.0[facility] HospitalEstimated glomerular filtration rate (GFR) non- Americanon 52-51-1943DQI/1.73 sq M.predicted among non-blacks MDRD (S/P/Bld) [Vol rate/Area]Estimated glomerular filtration rate (GFR) non- AmericanLow>=60 mL/min/1.73m 2FOhioHealthGlobulin Calc (S) [Mass/Vol]on 57-48-4120Pwgwmkpl (S) [Mass/Vol]Serum globulin measurement by calculation (mass/volume)[facility] HospitalHematocrit Auto (Bld) [Volume fraction]on 84-88-9254Ikuuzpmgxw (Bld) [Volume fraction]Hematocrit [Volume Fraction] of Blood by Automated countLow 42.0-54.0[facility] HospitalHemoglobin [Mass/volume] in Bloodon 12-86-1578Qlpafqkddl (Bld) [Mass/Vol]Hemoglobin [Mass/volume] in BloodLow 14.0-18.0[facility] HospitalLaboratory - Chemistry and Chemistry - challengeon 52-76-5372Uhofhqk [Mass/Vol]2.6 g/dLLow3.4-5.0[facility] HospitalALP [Catalytic activity/Vol]51 U/N75-746KxxzliajoCommunity Memorial HospitalALT [Catalytic activity/Vol]35 U/M37-20IfevkpgqwCommunity Memorial Hospital AST [Catalytic activity/Vol]20 U/E11-09QdjvuwqszCommunity [facility] Hospital Bilirubin [Mass/Vol]1.6 mg/dLHigh0.2-1.0[facility] HospitalCalcium [Mass/Vol]8.2 mg/dLLow8.5-10.1FOhioHealthChloride [Moles/Vol]104 mmol/G93-885JmybssawhCommunity Memorial HospitalCO2 [Moles/Vol]26.3 mmol/L21.0-32.0[facility] HospitalCreatinine [Mass/Vol]1.79 mg/dL High0.70-1.30[facility] HospitalGFR/1.73 sq M.predicted MDRD (S/P/Bld) [Vol rate/Area]45 mL/min/{1.73_m2}Low>=60 mL/min/1.73m 2FOhioHealthGlucose [Mass/Vol]112 mg/zHLxql20-601XqvkrvnwlCommunity Memorial HospitalLipase [Catalytic activity/Vol]76.0 U/L16.0-77.0[facility] HospitalPotassium [Moles/Vol]4.1 mmol/L3.5-5.1FOhioHealthProtein [Mass/Vol]5.3 g/dLLow6.4-8.2FOhioHealth Sodium [Moles/Vol]139 mmol/I625-237SuhyqxzbzCommunity Memorial HospitalUrea nitrogen [Mass/Vol]8.0 mg/dL7.0-18.0[facility] HospitalUrea nitrogen/Creatinine [Mass ratio]4.5 mg/mgCommunity Memorial Hospital Laboratory - Hematology and Cell countson 30-31-4771Chsdcjxw granulocytes/100 WBC (Bld)1.0 %High0.0-0.5FOhioHealthLeukocytes [#/volume] corrected for nucleated erythrocytes in Blood by Automated counon 58-26-0665JXS corrected for nucl RBC Auto (Bld) [#/Vol]Leukocytes [#/volume] corrected for nucleated erythrocytes in Blood by Automated coun4.0-11.0[facility] HospitalLymphocytes Auto (Bld) [#/Vol]on 90-10-2574Elmuxhezekz (Bld) [#/Vol]Lymphocytes [#/volume] in Blood by Automated count1.2-3.8[facility] HospitalLymphocytes/100 WBC Auto (Bld)on 05-14-2024 Lymphocytes/100 WBC (Bld)Lymphocytes/100 leukocytes in Blood by Automated count 20.5-60.0[facility] HospitalH Auto (RBC) [Entitic mass]on 18-53-9483XHV (RBC) [Entitic mass]MCH [Entitic mass] by Automated count25.9-34.0 Community Memorial HospitalMCHC Auto (RBC) [Mass/Vol]on 33-20-1546NFVC (RBC) [Mass/Vol]MCHC [Mass/volume] by Automated count29.9-35.2FOhioHealthMCV Auto (RBC) [Entitic vol]on 76-96-8074GVU (RBC) [Entitic vol] MCV [Entitic volume] by Automated count80.0-94.0[facility] HospitalMonocytes Auto (Bld) [#/Vol]on 53-14-4167Oreasbxhp (Bld) [#/Vol]Automated blood monocyte countHigh0.3-0.8[facility] HospitalMonocytes/100 WBC Auto (Bld)on 68-78-8704Nhpynmspx/100 WBC (Bld)Automated monocyte %High 1.7-12.0[facility] HospitalNeutrophils Auto (Bld) [#/Vol]on 36-16-3481Unedvpparau (Bld) [#/Vol]Neutrophils [#/volume] in Blood by Automated count1.4-6.5FOhioHealthNeutrophils/100 WBC Auto (Bld)on 13-53-3128Uebvadjboka/100 WBC (Bld)Automated neutrophil %43.0-75.0[facility] HospitalNo Panel Informationon 22-76-7958Xotfuxebydh difficile (PCR)(LAB)NegativeNegativeCommunity Memorial HospitalComment on above: Performed at: [address] [id number] Director: Prakash Barbour PhD, Phone: [phone] # (Auto)0.3 10 3/uL0.0-0.7FOhioHealthImmature Granulocyte # (Auto)0.07 10 3/uLHigh0.00-0.03[facility] HospitalPlatelet mean volume Auto (Bld) [Entitic vol]on 66-07-7437Ndqypvlu mean volume (Bld) [Entitic vol]Platelet mean volume [Entitic volume] in Blood by Automated count9.5-13.5FOhioHealthPlatelets Auto (Bld) [#/Vol]on 53-51-8517Skgitxrms (Bld) [#/Vol]Platelets [#/volume] in Blood by Automated gevmn658-797WizktdrxgCommunity Memorial HospitalRBC Auto (Bld) [#/Vol]on 21-74-3570DFD (Bld) [#/Vol]Erythrocytes [#/volume] in Blood by Automated countLow4.70-6.10Centervilleerum or plasma albumin/globulin mass ratioon 51-05-5737Vahnlbn/Globulin [Mass ratio]Serum or plasma albumin/globulin mass ratioCentervilleerum or plasma anion gap determinationon 85-55-3635Loiak gap [Moles/Vol]Serum or plasma anion gap determinationCommunity Memorial HospitalBasophils Auto (Bld) [#/Vol]on 63-39-6224Akbsmdeoj (Bld) [#/Vol]Automated basophil count0.0-0.1FOhioHealthBasophils/100 WBC Auto (Bld)on 54-65-9323Aubhwilct/100 WBC (Bld)Automated basophil %0.2-2.0[facility] HospitalEosinophils/100 WBC Auto (Bld)on 05-13-2024 Eosinophils/100 WBC (Bld)Automated eosinophil %0.9-7.0[facility] HospitalErythrocyte distribution width Auto (RBC) [Ratio]on 89-24-8842Lbncutaxdsj distribution width (RBC) [Ratio]Erythrocyte distribution width [Ratio] by Automated count11.0-15.0[facility] HospitalEstimated glomerular filtration rate (GFR) non- Americanon 60-36-8844LLJ/1.73 sq M.predicted among non-blacks MDRD (S/P/Bld) [Vol rate/Area]Estimated glomerular filtration rate (GFR) non- AmericanLow>=60 mL/min/1.73m 2FOhioHealthGlobulin Calc (S) [Mass/Vol]on 68-95-2461Xdiknfsj (S) [Mass/Vol]Serum globulin measurement by calculation (mass/volume)[facility] HospitalHematocrit Auto (Bld) [Volume fraction]on 95-03-9417Unkbssoddl (Bld) [Volume fraction]Hematocrit [Volume Fraction] of Blood by Automated count 42.0-54.0[facility] HospitalHemoglobin [Mass/volume] in Bloodon 91-08-2411Fnvwanvmck (Bld) [Mass/Vol]Hemoglobin [Mass/volume] in Blood14.0-18.0 [facility] HospitalINR in Platelet poor plasma by Coagulation assayon 43-18-6158XHW Coag (PPP) [Relative time]INR in Platelet poor plasma by Coagulation assayCommunity Memorial HospitalComment on above:DESIRED INR:2.0-3.0 CONDITIONS NOT LISTED BELOW2.5-3.5 FOR PROSTHETIC HEART VALVE REPLACEMENT2.5-3.5 RECURRENT THROMBOSISLaboratory - Chemistry and Chemistry - challengeon 00-00-6989Npmjhehwb Ql (U)SMALLAbnormalNEGATIVECommunity Memorial HospitalGlucose (U) [Mass/Vol]NegativeNEGATIVECommunity Memorial HospitalKetones Ql (U)15 mg/dLAbnormalNEGATIVECommunity Memorial HospitalpH (U)5.5 [pH]5.0-9.0Centervillepecific gravity (U) [Rel density]>=1.704Szfvtkxb3.005-1.025[facility] HospitalUrobilinogen Qn (U)0.2 {Yared'U}/dL0.2-1.0[facility] HospitalLactate [Moles/Vol]2.4 mmol/LCritically high0.4-2.0[facility] Comment on above:RESULTS CALLED TO jessica gaona rn @BY Najma Moncada [id number] Albumin [Mass/Vol]3.4 g/dL3.4-5.0[facility] HospitalALP [Catalytic activity/Vol]75 U/O06-302JjmuhqvynCommunity Memorial HospitalALT [Catalytic activity/Vol]50 U/Y76-72NfvgpjyevCommunity Memorial HospitalAST [Catalytic activity/Vol]23 U/B12-29OowkojpngCommunity Memorial HospitalBilirubin [Mass/Vol]1.8 mg/dLHigh0.2-1.0[facility] HospitalCalcium [Mass/Vol]9.1 mg/dL 8.5-10.1FOhioHealthChloride [Moles/Vol]98 mmol/L98-107 [facility] HospitalCO2 [Moles/Vol]23.1 mmol/L21.0-32.0[facility] HospitalCreatinine [Mass/Vol]2.01 mg/dLHigh0.70-1.30[facility] HospitalGFR/1.73 sq M.predicted MDRD (S/P/Bld) [Vol rate/Area]40 mL/min/{1.73_m2}Low>=60 mL/min/1.73m 2FOhioHealthGlucose [Mass/Vol]169 mg/eOJdqs80-348NeefapngjCommunity Memorial HospitalLipase [Catalytic activity/Vol]87.0 U/LHigh16.0-77.0[facility] HospitalMagnesium [Mass/Vol]1.6 mg/dLLow1.8-2.4FOhioHealthPotassium [Moles/Vol]3.5 mmol/L3.5-5.1FOhioHealthProtein [Mass/Vol] 6.7 g/dL6.4-8.2FMetroHealth Main Campus Medical Centerodium [Moles/Vol]136 mmol/L 136-145[facility] HospitalUrea nitrogen [Mass/Vol]14.0 mg/dL 7.0-18.0[facility] HospitalUrea nitrogen/Creatinine [Mass ratio] 7.0 mg/mgCommunity Memorial HospitalLaboratory - Hematology and Cell countson 26-14-6701Gbszakag granulocytes/100 WBC (Bld)0.8 %High0.0-0.5FOhioHealthLaboratory - Microbiology and Antimicrobial susceptibilityon 84-68-8164CVXL-CoV-2 (COVID-19) RNA MOLLY+probe Ql (Unsp spec) NegativeNEGATIVECommunity Memorial HospitalComment on above:This test has not been FDA cleared or approved, but has beenauthorized by the FDA under an Emergency Use Authorization(EUA) for use by authorized laboratories certified underIA that meet the requirements to perform moderate or highcomplexity testing. This test has been authorized only forthe detection of proteins from SARS-CoV-2, not for any otherviruses or pathogens. The emergency use of this t est isauthorized for the duration of the declaration thatcircumstances exist justifying the authorization ofemergency use of in vitro diagnostic tests for detectionand/or diagnosis of Covid-19 under section 564(b)(1) of theAct, 21 U.S.C. 360bbb-3(b)(1), unless the declaration isterminated or authorization is revoked sooner.Laboratory - Specimen informationon 44-82-8924Krfeejsarw (U)CLEAR CLEARCommunity Memorial HospitalColor (U)DK YELLOWYELLOWCommunity Memorial HospitalLaboratory - Urinalysison 56-75-2064Smawzmuwi esterase Test strip Ql (U)NegativeNEGATIVECommunity Memorial HospitalNitrite Ql (U)Negative NEGATIVECommunity Memorial HospitalProtein Ql (U)TRACE mg/dLNEG/TRACE [facility] HospitalLeukocytes [#/volume] corrected for nucleated erythrocytes in Blood by Automated counon 26-84-4846PXR corrected for nucl RBC Auto (Bld) [#/Vol]Leukocytes [#/volume] corrected for nucleated erythrocytes in Blood by Automated counHigh4.0-11.0[facility] HospitalLymphocytes Auto (Bld) [#/Vol]on 02-35-9024Wvbopspiiml (Bld) [#/Vol]Lymphocytes [#/volume] in Blood by Automated count1.2-3.8[facility] Lymphocytes/100 WBC Auto (Bld)on 13-76-1347Qqshdelzmfc/100 WBC (Bld) Lymphocytes/100 leukocytes in Blood by Automated count20.5-60.0[facility] HospitalH Auto (RBC) [Entitic mass]on 43-97-3118YMQ (RBC) [Entitic mass]MCH [Entitic mass] by Automated count25.9-34.0[facility] HospitalHC Auto (RBC) [Mass/Vol]on 20-06-0706JCMN (RBC) [Mass/Vol]MCHC [Mass/volume] by Automated count29.9-35.2FUniversity Hospitals Beachwood Medical CenterV Auto (RBC) [Entitic vol]on 52-58-1077HQP (RBC) [Entitic vol]MCV [Entitic volume] by Automated count80.0-94.0[facility] HospitalMonocytes Auto (Bld) [#/Vol]on 76-64-7291Qssxeijuz (Bld) [#/Vol]Automated blood monocyte countHigh 0.3-0.8[facility] HospitalMonocytes/100 WBC Auto (Bld)on 02-48-8552Qdxvhuukk/100 WBC (Bld)Automated monocyte %High1.7-12.0[facility] HospitalNeutrophils Auto (Bld) [#/Vol]on 80-08-9797Dcuuayqjbjn (Bld) [#/Vol]Neutrophils [#/volume] in Blood by Automated countHigh1.4-6.5 [facility] HospitalNeutrophils/100 WBC Auto (Bld)on 05-13-2024 Neutrophils/100 WBC (Bld)Automated neutrophil %43.0-75.0[facility] HospitalNo Panel Informationon 30-16-5428Tydie Microscopic ReviewNO [facility] HospitalUrine Occult BloodNegativeNEGATIVECommunity Memorial HospitalBedside Influenza Type A AntigenNegativeCommunity Memorial HospitalComment on above:Negative for Flu A protein antigen. Infection due to Flu Acannot be ruled out. Flu A antigen in thesample may bebelow the detection limit of the test.Bedside Influenza Type B AntigenNegative [facility] HospitalComment on above:Negative for Flu B protein antigen. Infection due to Flu Bcannot be ruled out. Flu B antigen in thesample may bebelow the detection limit of the test.RSV RNA Qual (PCR)([facility])Not detected NOT DETECTEFOhioHealthEosinophils # (Auto)0.3 10 3/uL 0.0-0.7FOhioHealthImmature Granulocyte # (Auto)0.10 10 3/uLHigh0.00-0.03[facility] HospitalTroponin I High Sensitivity 44.9 pg/mL4.0-76.1FOhioHealthComment on above:CUT-OFF POINTS HAVE BEEN ESTABLISHED BASED ON THE FOURTHUNIVERSAL DEFINITION OF MYOCARDIAL INFARCTION. THE UPPERREFERENCE LIMIT (URL) OF TROPONIN, DEFINED THE 99THPERCENTILE OF cTnI DISTRIBUTION IN A REFERENCE POPULATION,HAS BEEN CONFIRMED THE DECISION THRESHOLD FOR MIDIAGNOSIS.99TH PERCENTILE = 76.2 PG/MLNOTE: HIGH-SENSITIVITY TROPONIN ASSAY IS NOT INTENDED TO BEUSED IN ISOLATION BUT SHOULD BE INTERPRETED IN CONJUNCTIONWITH OTHER DIAGNOSTIC AND CLINICAL INFORMATION.Platelet mean volume Auto (Bld) [Entitic vol]on 05-13-2024 Platelet mean volume (Bld) [Entitic vol]Platelet mean volume [Entitic volume] in Blood by Automated count9.5-13.5FOhioHealthPlatelets Auto (Bld) [#/Vol]on 00-21-7714Fohsbfzqd (Bld) [#/Vol]Platelets [#/volume] in Blood by Automated juxdj977-077IlnxajgorCommunity Memorial HospitalProthrombin time (PT) on 08-99-7652QO Coag (PPP) [Time]Prothrombin time (PT)High9.0-11.6FOhioHealthRBC Auto (Bld) [#/Vol]on 08-89-1181UTR (Bld) [#/Vol] Erythrocytes [#/volume] in Blood by Automated count4.70-6.10Centervilleerum or plasma albumin/globulin mass ratioon 05-13-2024 Albumin/Globulin [Mass ratio]Serum or plasma albumin/globulin mass ratio Centervilleerum or plasma anion gap determinationon 14-19-5253Mqmxj gap [Moles/Vol]Serum or plasma anion gap determinationCommunity Memorial HospitalAuditory function testson 87-88-1609Smrxy Ear: Mild to moderate sensorineural hearing loss above 2K Hz Left Ear: Moderate rising to mild sensorineural hearing loss from 3K Hz - 8K Hz Impressions: Right Ear: 20 dB decrease at 8K Hz only Left Ear: 19 dB decrease at 6K Hz only [facility] StokesNo Panel Informationon 14-66-7949Eykhdciu Specific Antigen Screen<0.13 ng/mL<=4.00[facility] HospitalErythrocyte distribution width Auto (RBC) [Ratio]on 89-57-4151Rxqrrqteeas distribution width (RBC) [Ratio]12.0 %11.0-15.0[facility] HospitalEstimated glomerular filtration rate (GFR) non- Americanon 01-27-2083YPG/1.73 sq M.predicted among non-blacks MDRD (S/P/Bld) [Vol rate/Area]29 mL/min/{1.73_m2} Low>=60[facility] HospitalHematocrit Auto (Bld) [Volume fraction] on 68-37-0933Dyjtcfnbln (Bld) [Volume fraction]44.0 %42.0-54.0[facility] HospitalHemoglobin [Mass/volume] in Bloodon 67-42-9710Xviwyyinhg (Bld) [Mass/Vol]15.0 g/dL14.0-18.0[facility] HospitalLaboratory - Chemistry and Chemistry - challengeon 69-55-0101Ubpqbmb [Mass/Vol]3.6 g/dL 3.4-5.0[facility] HospitalCalcium [Mass/Vol]8.9 mg/dL8.5-10.1 [facility] HospitalChloride [Moles/Vol]99 mmol/L05-433FhksoysiiCommunity Memorial HospitalCO2 [Moles/Vol]28.7 mmol/L21.0-32.0[facility] HospitalCreatinine [Mass/Vol]2.24 mg/dLHigh0.70-1.30[facility] HospitalGFR/1.73 sq M.predicted MDRD (S/P/Bld) [Vol rate/Area]35 mL/min/{1.73_m2}Low>=60[facility] HospitalGlucose [Mass/Vol]303 mg/vCTfuq03-034JckwkjntlCommunity Memorial HospitalMagnesium [Mass/Vol]1.9 mg/dL 1.8-2.4FOhioHealthPotassium [Moles/Vol]4.9 mmol/L3.5-5.1 Centervilleodium [Moles/Vol]137 mmol/Y683-466TxpddkeroCommunity Memorial HospitalUrate [Mass/Vol]7.7 mg/dLHigh3.5-7.2FOhioHealthUrea nitrogen [Mass/Vol]33.0 mg/dLHigh7.0-18.0[facility] HospitalUrea nitrogen/Creatinine [Mass ratio]14.7 mg/mgCommunity Memorial HospitalBilirubin Ql (U)NegativeNEGSelect Medical Cleveland Clinic Rehabilitation [facility], [place] Glucose (U) [Mass/Vol]mg/dLAbnormalNEGSelect Medical Cleveland Clinic [facility], [place] Ketones Ql (U)NegativeNEGSelect Medical Cleveland Clinic Rehabilitation Hospital, BeachwoodpH (U)5.5 [pH] 5.0-9.0Centervillepecific gravity (U) [Rel density]1.015 1.005-1.025[facility] HospitalUrobilinogen Qn (U)0.2 {Yared'U}/dL0.2-1.0[facility] HospitalLaboratory - Specimen informationon 78-75-6790Rujwxouvwh (U)CLEARCLEARFOhioHealthColor (U)LT. YELLOWYELLOWCommunity Memorial HospitalLaboratory - Urinalysison 81-58-5914Fnwldbgwy esterase Test strip Ql (U)NegativeNEGATIVE [facility] HospitalMucus Ql (Urine sed)TRACEAbnormalNONE SEEN [facility] HospitalNitrite Ql (U)NegativeNEGATIVECommunity Memorial HospitalProtein (U) [Mass/Vol]11.7 mg/dL<=11.9[facility] HospitalProtein Ql (U)NegativeNEG/TRACECommunity Memorial Hospital Leukocytes [#/volume] corrected for nucleated erythrocytes in Blood by Automated counon 35-39-0957HKM corrected for nucl RBC Auto (Bld) [#/Vol]9.7 10 3/uL 4.0-11.0[facility] HospitalH Auto (RBC) [Entitic mass]on 06-02-8315TXT (RBC) [Entitic mass]31.5 pg25.9-34.0[facility] HospitalMCHC Auto (RBC) [Mass/Vol]on 23-67-9230ZOJY (RBC) [Mass/Vol]34.1 g/dL 29.9-35.2FOhioHealthMCV Auto (RBC) [Entitic vol]on 47-46-8100QDI (RBC) [Entitic vol]92.4 fL80.0-94.0[facility] HospitalNo Panel Informationon 089079-Arwftfa Vitamin D Total68.1 ng/mL [facility] HospitalComment on above:<20 ng/mL Vit D nlsoqzoxu17- <30 ng/mL Vit D smpczgnxrruv07-563 ng/mL Vit D sufficient>100 ng/mL Potential ToxicityParathyroid Hormone (Intact)61 pg/xI60-92DkomnkfalCommunity Memorial HospitalComment on above:Performed at: [email or web address] [address] [id number] Director: Prakash Barbour PhD, Phone: [phone] Phosphorus Level3.8 mg/dL2.6-4.7FOhioHealthUrine Bacteria NONE SEEN #/HPFNONE [facility] HospitalUrine Occult Blood NegativeNEGATIVECommunity Memorial HospitalUrine Random Zdabprtnpi08.08 mg/dL20.00-300.00[facility] HospitalUrine RBCNONE SEEN #/HPF0-2 [facility] HospitalUrine Squamous Epithelial CellsFEW #/LPF AbnormalNONE/RARECommunity Memorial HospitalUrine WBCNONE SEEN #/HPFNONE [facility] HospitalPlatelet mean volume Auto (Bld) [Entitic vol]on 25-50-6625Facyalcf mean volume (Bld) [Entitic vol]12.7 fL9.5-13.5 [facility] HospitalPlatelets Auto (Bld) [#/Vol]on 01-22-2024 Platelets (Bld) [#/Vol]230 10 3/fK753-788NzttkneiqCommunity Memorial HospitalRBC Auto (Bld) [#/Vol]on 89-54-5025HWN (Bld) [#/Vol]4.76 10 6/uL4.70-6.10Centervilleerum or plasma anion gap determinationon 16-15-9319Qqwnv gap [Moles/Vol]14.2 mmol/LFOhioHealthUrine protein/creatinine ratioon 92-49-0904Xajccqp/Creatinine (U) [Ratio]0.14[facility]37on *We will increase your metoprolol to 100mg twice daily. You can take 2 tablets of your current 50mg tablets twice daily until this runs out then start the new prescription with 1 tablet daily. *No objections with your upcoming dental procedure.NormalUnKindred Hospital DaytonOffice Visiton 39-48-3319Wiiwcs-up [id number] Don Elkins 1950 M Date Provider Department Center 01/06/2024 [facility] RODRIGUE[facility] Family History Problem Relation Age of Onset Diabetes Mother Coronary artery disease Brother Other Brother Heart failure Brother Family Status - Relation Status Age at Mother Brother Level of Service:88627 [place] OFFICE/OUTPATIENT ESTABLISHED MOD MDM 30 MIN Reason for Visit and Comments: Hypertension [124801] Coronary Artery Disease [187]NormalUnKindred Hospital DaytonAutomated epithelial cells count in urine sediment (number/area)on 78-51-2156Flrkryvcpa cells Auto (Urine sed) [#/Area]FEW #/LPFNONE/RARECommunity Memorial HospitalAutomated leukocytes count in urine sediment (number/area)on 51-95-8592CDO Auto (Urine sed) [#/Area]NONE SEEN #/HPF0-2FOhioHealth Automated urine specific gravity by refractometryon 02-83-7058Iwvtztbi gravity Refractometry automated (U) [Rel density]1.0251.005-1.025[facility] HospitalBilirubin Auto test strip (U) [Mass/Vol]on 90-06-5352Kkpxbjynw (U) [Mass/Vol]NegativeNEGATIVECommunity Memorial HospitalCholesterol in LDL Calc [Mass/Vol]on 18-90-5557Pzyywzaokha in LDL [Mass/Vol]33.0 mg/dLCommunity Memorial HospitalComment on above:<100 mg/dl SHHWSML098-020 mg/dl NEAR OR ABOVE TGAURGU597-232 mg/dl BORDERLINE SKBX951-749 mg/dl HIGH>190 mg/dl VERY HIGH Cholesterol in VLDL Calc [Mass/Vol]on 87-24-7533Mjvooyuufkj in VLDL [Mass/Vol] 30.8 mg/dLCommunity Memorial HospitalColor Auto (U)on 85-45-4307Pbovj (U) YELLOWYELLOWCommunity Memorial HospitalErythrocyte distribution width Auto (RBC) [Ratio]on 13-55-4712Qehguwlvzmm distribution width (RBC) [Ratio]12.1 % 11.0-15.0[facility] HospitalEstimated glomerular filtration rate (GFR) non- Americanon 37-18-7267VQZ/1.73 sq M.predicted among non-blacks MDRD (S/P/Bld) [Vol rate/Area]44 mL/min/{1.73_m2}>=60[facility] HospitalHematocrit Auto (Bld) [Volume fraction]on 60-33-6555Gdihxbwtsw (Bld) [Volume fraction]45.3 %42.0-54.0[facility] HospitalHemoglobin [Mass/volume] in Bloodon 49-99-1538Fppllyfsxr (Bld) [Mass/Vol]15.1 g/dL14.0-18.0 [facility] HospitalKetones Auto test strip (U) [Mass/Vol]on 22-72-6640Xuholzt (U) [Mass/Vol]NegativeNEGATIVECommunity Memorial HospitalLaboratory - Chemistry and Chemistry - challengeon 33-10-2527Bqdjufa [Mass/Vol]3.3 g/dL3.4-5.0[facility] HospitalCalcium [Mass/Vol]8.5 mg/dL8.5-10.1FOhioHealthChloride [Moles/Vol]98 mmol/L 98-107[facility] HospitalCholesterol [Mass/Vol]110 mg/dL<=200 [facility] HospitalCholesterol in HDL [Mass/Vol]47 mg/dL40-60 [facility] HospitalComment on above:> or =60 mg/dl - LOW CARDIOVASCULAR RISK<40 mg/dl - HIGH CARDIOVASCULAR RISKCO2 [Moles/Vol]26.4 mmol/L21.0-32.0[facility] HospitalCreatinine [Mass/Vol]1.57 mg/dL 0.70-1.30[facility] HospitalFree T4 [Mass/Vol]0.95 ng/dL0.76-1.46 [facility] HospitalGFR/1.73 sq M.predicted MDRD (S/P/Bld) [Vol rate/Area]53 mL/min/{1.73_m2}>=60[facility] HospitalGlucose [Mass/Vol]300 mg/tU18-209ZxnupkdsuCommunity Memorial HospitalMagnesium [Mass/Vol] 1.9 mg/dL1.8-2.4FOhioHealthPotassium [Moles/Vol]3.8 mmol/L 3.5-5.1FMetroHealth Main Campus Medical Centerodium [Moles/Vol]133 mmol/H675-568 [facility] HospitalTriglyceride [Mass/Vol]154 mg/dL<=150[facility] HospitalTS Qn1.788 m[IU]/L0.358-3.740[facility] HospitalUrate [Mass/Vol]5.4 mg/dL3.5-7.2FOhioHealthUrea nitrogen [Mass/Vol]23.0 mg/dL7.0-18.0[facility] HospitalUrea nitrogen/Creatinine [Mass ratio]14.6 mg/mgCommunity Memorial Hospital Laboratory - Urinalysison 86-24-6788Liniszh (U) [Mass/Vol]19.0 mg/dL<=11.9 [facility] HospitalLeukocytes [#/volume] corrected for nucleated erythrocytes in Blood by Automated counon 72-13-9525JPH corrected for nucl RBC Auto (Bld) [#/Vol]11.2 10 3/uL4.0-11.0[facility] HospitalMCH Auto (RBC) [Entitic mass]on 61-85-2743AOQ (RBC) [Entitic mass]31.7 pg25.9-34.0 [facility] HospitalMCHC Auto (RBC) [Mass/Vol]on 14-66-5744YWAD (RBC) [Mass/Vol]33.3 g/dL29.9-35.2FOhioHealthMCV Auto (RBC) [Entitic vol]on 50-40-9107MQV (RBC) [Entitic vol]95.2 fL80.0-94.0[facility] HospitalMicroalbumin [Mass/volume] in Urineon 00-51-6517Ppavkad DL <= 20 mg/L (U) [Mass/Vol]3.7 mg/dL<=30.0[facility] Mucus LM Ql (Urine sed)on 80-81-5140Aqxyh Ql (Urine sed)TRACENONE SEENCommunity Memorial HospitalNo Panel Informationon 28-88-874481749176-Fsorsac Vitamin D Total61.2 ng/mLCommunity Memorial HospitalComment on above:<20 ng/mL Vit D wabsyfwer23-<30 ng/mL Vit D hoxlbjzqxmge69-967 ng/mL Vit D sufficient>100 ng/mL Potential ToxicityC-Wbrtckv62.7 ng/mL1.1-4.4FOhioHealth Comment on above:C-Peptide reference interval is for fasting patients.Performed at: [employer] [place], [place] [id number] Director: Prakash Barbour PhD, Phone: [phone] Triiodothyronine1.71 pg/mL2.18-3.98 [facility] HospitalParathyroid Hormone (Intact)34 pg/mL15-65 [facility] HospitalComment on above:Performed at: [employer] [place], [place] [id number] Director: Prakash Barbour PhD, Phone: [phone] Level3.9 mg/dL2.6-4.7FOhioHealthUrine Random Hjtrepdouv541.56 mg/dL20.00-300.00[facility] HospitalPlatelet mean volume Auto (Bld) [Entitic vol]on 38-53-4571Iwyubywi mean volume (Bld) [Entitic vol]12.7 fL9.5-13.5FOhioHealth Platelets Auto (Bld) [#/Vol]on 35-65-8401Slwhllaor (Bld) [#/Vol]234 10 3/uL 150-450[facility] HospitalProtein Auto test strip (U) [Mass/Vol]on 33-59-4883Kqgbjtu (U) [Mass/Vol]NegativeNEG/TRACECommunity Memorial HospitalRBC Auto (Bld) [#/Vol]on 21-85-0484PMC (Bld) [#/Vol]4.76 10 6/uL4.70-6.10 Centervilleerum or plasma anion gap determinationon 46-10-8406Unxat gap [Moles/Vol]12.4 mmol/LFMetroHealth Main Campus Medical Centererum or plasma total cholesterol/high density lipoprotein (HDL) cholesterol mass rat on 54-82-4836Rwrdmyldvts.total/Cholesterol in HDL [Mass ratio]2.3 {ratio} [facility] HospitalComment on above:3.3 - 4.4 LOW RISK4.4 - 7.1 AVERAGE RISK7.1 - 11.0 MODERATE RISK>11.0 HIGH RISKSpecific gravity Auto test strip (U) [Rel density]on 35-42-2312Xriajhqg gravity (U) [Rel density]CLEARCLEAR [facility] HospitalUrine bacteria detection by automated methodon 25-00-6456Kkduhyhm Auto Ql (U)NONE SEEN #/HPFNONE SEENCommunity Memorial HospitalUrine glucose measurement by test strip (mass/volume)on 88-57-3718Xhcfadz Test strip (U) [Mass/Vol]NegativeNEGATIVECommunity Memorial HospitalUrine hemoglobin detection by automated test stripon 11-51-1922Cjngaymtiz Auto test strip Ql (U)NegativeNEGSelect Medical Cleveland Clinic Rehabilitation Hospital, BeachwoodUrine microalbumin/creatinine mass ratioon 63-01-7171Dnrjsjz/Creatinine DL <= 20 mg/L (U) [Mass ratio]20.9 mg/g0.0-29.9[facility] HospitalComment on above:NO MICROALBUMINURIA 0-29 MG/GCLINICAL MICROALBUMINURIA 30-300 MG/GMACROALBUMINURIA >300 MG/GUrine nitrite detection by automated test stripon 09-36-8254Aidqsja Auto test strip Ql (U)NegativeNEGATIVECommunity Memorial HospitalUrine protein/creatinine ratioon 42-08-4369Vhksgjc/Creatinine (U) [Ratio]0.11[facility] HospitalUrine sediment leukocyte count by microscopy (number/high power field)on 96-92-7544AZM LM.HPF (Urine sed) [#/Area] NONE SEEN #/HPFNONE SEENCommunity Memorial HospitalUrobilinogen Auto test strip (U) [Mass/Vol]on 13-98-0148Vdjvvhbncqag Qn (U)0.2 {Yared'U}/dL0.2-1.0 [facility] HospitalpH Auto test strip (U)on 19-67-1431rX (U)5.5 [pH]5.0-9.0[facility] HospitalPTH INTACTon 29-96-9221BMO, Oluien87 pg/fXJdjrni83-64Vmz [facility] HospitalComment on above:Performed By: #### PTHINT #### [facility] [address] [place] [address] Dr. Stu SequeiraHEMOGRAM AND PLATELon 27-13-2585Ocpuvpqknh (Bld) [Volume fraction]47.3 %Fkhchp71.0-54.0The [facility] HospitalComment on above:Performed By: #### HH #### [facility] [address] [place] [address] Dr. Stu SequeiraHemoglobin (Bld) [Mass/Vol]14.7 g/gLRzvkmz14.0-18.0The [facility] HospitalComment on above:Performed By: #### HH #### [facility] [address] [place] [address] Dr. Stu SequeiraZUCKER [facility]ILLS[facility] (RBC) [Entitic mass]31.0 vtRdyaep34.9-34.0The [facility] HospitalComment on above:Performed By: #### HH #### [facility] [address] [place] [address] Dr. Stu [facility] ([facility] [Mass/Vol]31.1 g/iVQjynok13.9-35.2The [facility] HospitalComment on above:Performed By: #### HH #### [facility] [address] [place] [address] Dr. Stu SequeiraMCV (RBC) [Entitic vol]99.8 fLCritically high80.0-94.0The [facility] HospitalComment on above:Performed By: #### HH #### [facility] [address] [place] [address] Dr. Stu SequeiraPLT268 103/yyKblmah552-089Grh [facility] HospitalComment on above: Performed By: #### HH #### [facility] [address] [place] [address] Dr. Stu SequeiraRBC4.74 106/ulNormal4.70-6.10The [facility] HospitalComment on above:Performed By: #### HH #### [facility] [address] [place] [address] Dr. Stu SequeiraWBC9.8 103/ulNormal4.0-11.0The [facility] HospitalComment on above: Performed By: #### HH #### [facility] [address] [place] [address] Dr. Stu SequeiraMAGNESIUMon 77-18-4571Cestqotjd [Mass/Vol]1.6 mg/dLCritically low 1.8-2.4The [facility] HospitalComment on above:Performed By: #### URIC, MG, RENAL #### [facility] [address] [place] [address] Dr. Stu SequeiraRENAL FUNCTION PANELon 96-22-1016Tuxcrsx [Mass/Vol]3.8 g/dLNormal 3.4-5.0The [facility] HospitalComment on above:Performed By: #### URIC, MG, RENAL #### [facility] [address] [place] [address] Dr. Stu SequeiraCalcium [Mass/Vol]9.2 mg/dLNormal8.5-10.1The [facility] Comment on above:Performed By: #### URIC, MG, RENAL #### [facility] [address] [place] [address] Dr. Stu SequeiraChloride [Moles/Vol]99 mmol/YIintze57-051Jmd [facility] Comment on above:Performed By: #### URIC, MG, RENAL #### [facility] [address] [address] [address] Stu SequeiraCO2 [Moles/Vol]32.2 mmol/LCritically high21.0-32.0The [facility] HospitalComment on above:Performed By: #### URIC, MG, RENAL #### [facility] [address] [address] [address] Stu SequeiraCreatinine [Mass/Vol]1.58 mg/dLCritically high0.70-1.30The [facility] HospitalComment on above:Performed By: #### URIC, MG, RENAL #### [facility] [address] [address] [address] Peraza ChangEGFR-AF ZRNUIIFA81 mL/min/1.16r8Xazuxagoby low>=60The [facility] HospitalComment on above:Performed By: #### URIC, MG, RENAL #### [facility] [address] [address] [address] Peraza ChangEGFR-NON AF IYTBIBDL27 mL/min/1.27b9Hnbmcfdtci low>=60The [facility] HospitalComment on above:Performed By: #### URIC, MG, RENAL #### [facility] [address] [address] [address] Stu SequeiraGlucose [Mass/Vol]95 mg/lIRbpszl71-265Ern [facility] Comment on above:Performed By: #### URIC, MG, RENAL #### [facility] [address] [address] [address] Stu SequeiraPhosphate [Mass/Vol]4.2 mg/dLNormal2.6-4.7The [facility] Comment on above:Performed By: #### URIC, MG, RENAL #### [facility] [address] [address] [address] Stu SequeiraPotassium [Moles/Vol]4.9 mmol/LNormal3.5-5.1The [facility] Comment on above:Performed By: #### URIC, MG, RENAL #### [facility] [address] [address] [address] Stu Amezcuaum [Moles/Vol]138 mmol/RUhugaj888-138GpgGrand Lake Joint [facility] District [facility] Hospital Comment on above:Performed By: #### URIC, MG, RENAL #### [facility] [address] [address] [address] Stu Rojas nitrogen [Mass/Vol]24.0 mg/dLCritically high7.0-18.0The [facility] HospitalComment on above:Performed By: #### URIC, MG, RENAL #### [facility] [address] [address] [address] Stu Jackson RANDOM W/MICROSCOPICon 76-56-5618SJRLXBLAATTXVTvxaqcwlRFZK SEENGrand Lake Joint Township District Memorial HospitalComment on above:Performed By: #### UAMIC #### [facility] [address] [address] [address] Stu Carrasco Ql (U)NegativeNormalNEGATIVEGrand [facility] Comment on above:Performed By: #### UAMIC #### [facility] [address] [address] [address] Stu BlackE SEENNormalNONE SEENGrand Lake Joint Township District Memorial HospitalComeaton rapids medical center on above:Performed By: #### UAMIC #### [facility] [address] [address] [address] Stu Enriquez (U)CLEARNormalCLEARThe [facility] HospitalComment on above: Performed By: #### UAMIC #### [facility] [address] [address] [address] Stu Morales (U)YELLOWNormalYELLOWGrand Lake Joint Township District Memorial HospitalComment on above: Performed By: #### UAMIC #### [facility] [address] [place] [address] Dr. Stu Hawthorne LM Nom (Urine sed)NONE SEENNormalNONE SEENGrand Lake Joint Township District Memorial HospitalComment on above:Performed By: #### UAMIC #### [facility] [address] [address] [address] Stu Lothelial cells LM Ql (Urine sed)RARENormalNONE SEEN /RAREThe [facility] HospitalComment on above:Performed By: #### UAMIC #### [facility] [address] [address] [address] Stu SequeiraGlucose Ql (U)NegativeNormalNEGATIVEGrand Lake Joint [facility] District Memorial HospitalComment on above:Performed By: #### UAMIC #### [facility] [address] [place] [address] Dr. Stu SequeiraHemoglobin Ql (U)NegativeNormalNEGATIVELakehealth Tripoint [facility] Center on above:Performed By: #### UAMIC #### [facility] [address] [place] [address] Dr. Stu SequeiraKetones Ql (U)NegativeNormalNEGATIVEGrand Lake [facility] District Memorial HospitalComment on above:Performed By: #### UAMIC #### [facility] [address] [place] [address] Dr. Stu SequeiraLEUKOCYTESNegativeNormalNEGATIVEGrand [facility] Memorial HospitalComment on above:Performed By: #### UAMIC #### [facility] [address] [place] [address] Dr. Stu SequeiraMUCOUSNONE SEENNormalNONE SEENGrand Lake [facility] District Memorial HospitalComment on above:Performed By: #### UAMIC #### [facility] [address] [place] [address] Dr. Stu SequeiraNitrite Ql (U)NegativeNormalNEGATIVEGrand Lake [facility] Memorial HospitalComment on above:Performed By: #### UAMIC #### [facility] [address] [address] [address] Stu SequeirapH (U)5.5 [pH]Normal5-9Grand [facility] HospitalComment on above: Performed By: #### UAMIC #### [facility] [address] [place] [address] Dr. Stu SequeiraRBCNONE SEENAbnormal0-2The [facility] HospitalComment on above: Performed By: #### UAMIC #### [facility] [address] [address] [address] Stu SequeiraSPEC GRAVITY1.812Hswoqi8.005-<=1.025The [facility] on above:Performed By: #### UAMIC #### [facility] [address] [place] [address] Dr. Stu Jackson PROTEINNegativeNormalNEGATIVE/ TRACEThe [facility] Comment on above:Performed By: #### UAMIC #### [facility] [address] [place] [address] Dr. Stu Youssefbilamadogen Qn (U)0.2 {Yared'U}/dLNormal0.2 - 1.0The [facility] [employer] on above:Performed By: #### UAMIC #### [facility] [address] [place] [address] Dr. Stu SequeiraWBC0-2AbnormalNONE SEENThe [facility] HospitalComment on above: Performed By: #### UAMIC #### [facility] [address] [place] [address] Dr. Stu Edgar ACID SERUMon [id number] [Mass/Vol]5.7 mg/dLNormal 3.5-7.2The [facility] HospitalComment on above:Performed By: #### URIC, MG, RENAL #### [facility] [address] [place] [address] Dr. Stu Lara T PROTEIN CREAT RATIOon 56-91-2981Hsrmmle (U) [Mass/Vol] 13.6 mg/dLCritically high<=12.0The [facility] HospitalComment on above:Performed By: #### URTPCR #### [facility] [address] [place] [address] Dr. Stu Luna PROT CREAT RAT0.10NormalThe [facility] HospitalComment on above: Performed By: #### URTPCR #### [facility] [address] [place] [address] Dr. Stu Lara HETAU273.40 mg/sEOjcvif47.00-300.00[facility] Comment on above:Performed By: #### URTPCR #### [facility] [address] [place] [address] Dr. Stu SequeiraVITAMIN D 25 OHon 63-42-4584IAK D 25-OH66.5 ng/mLNormalGrand Lake [facility] District Memorial HospitalComment on above:Performed By: #### VITAD #### [facility] [address] [place] [address] Dr. Stu Shrestha [place]ANGES[place] BELOWHighland District HospitalComment on above: Result Comment: <20 ng/mL Vit D deficient 20 - <30 ng/mL Vit D insufficient 30 - 100 ng/mL Vit D sufficient >100 ng/mL Potential ToxicityPerformed By: #### VITAD #### [facility] [address] [place] [address] Dr. Peraza ChangECHOCARDIO M/2D COMPLETEon 26-64-4832HNOLRWGJCV M/2D COMPLETE Patient: DON ELKINS Exam Date: 06/07/2022 : 1950 Gender:M Ordering : DR DAMARIS MEIER M.D. Admission #: [id number] Family : DR SAL SABILLON M.D. Order #: [id number] CLICK HERE TO VIEW EXAM ECHOCARDIOGRAM REPORT [...] 3.33 cm Aortic Valve AoV Area (Peak Michele): 2.78 cm2, 2.78 cm2 AoV Area (VTI): [...] by: Damaris Meier M.D. on 06/07/2022 at 12:23High[facility] District HospitalLIPID PROFILEon [id number]-HDL RATIO NORMSEE [facility] HospitalComment on above:Result Comment: 3.3 - 4.4 LOW RISK 4.4 - 7.1 AVERAGE RISK 7.1 - 11.0 MODERATE RISK >11.0 HIGH RISKPerformed By: #### LIPID #### [facility] [address] [place] [address] Dr. Stu Morrisesterol [Mass/Vol]111 mg/dLNormal<=200The [facility] Comment on above:Performed By: #### LIPID #### [facility] [address] [place] [address] Dr. Stu Morrisesterol in HDL [Mass/Vol]46 mg/rCDjgnrz39-02Upe [facility] HospitalComment on above:Performed By: #### LIPID #### [facility] [address] [place] [address] Dr. Stu Morrisesterol in LDL [Mass/Vol]47.0 mg/dLHighland District HospitalComment on above:Performed By: #### LIPID #### [facility] [address] [place] [address] Dr. Stu Tyler.total/Cholesterol in HDL [Mass ratio]2.4 {ratio} NormalGrand Lake Joint Township District Memorial HospitalComment on above:Performed By: #### LIPID #### [facility] [address] [place] [address] Dr. Yilan ChangHDL NORMAL> or = 60 mg/dl - LOW CARDIOVASCULAR RISK <40 mg/dl - HIGH CARDIOVASCULAR RISKHighland District HospitalComment on above:Performed By: #### LIPID #### [facility] [address] [address] [address] Stu Hugo CALC NORMALSEE BELOWNoTrumbull Regional Medical CenterComment on above:Result Comment: <100 mg/dl OPTIMAL 100 - 129 mg/dl NEAR OR ABOVE OPTIMAL 130 - 159 mg/dl BORDERLINE HIGH 160 - 189 mg/dl HIGH >190 mg/dl VERY HIGH Performed By: #### LIPID #### [facility] [address] [place] [address] Dr. Stu SequeiraTriglyceride [Mass/Vol]90 mg/dLNormal<=150The [facility] Comment on above:Performed By: #### LIPID #### [facility] [address] [place] [address] Dr. Stu SequeiraVLDL CALC18.0 mg/dLNoTrumbull Regional Medical CenterComment on above: Performed By: #### LIPID #### [facility] [address] [place] [address] Dr. Stu SequeiraPTH INTACTon [id number], Xxqssc48 pg/gVEnejdh90-92Lbj [facility] HospitalComment on above:Performed By: #### URTPCR #### [facility] [address] [place] [address] Dr. Stu SequeiraHEMOGRAM AND PLATELon 33-39-7950Uztrzrgqkk (Bld) [Volume fraction]43.5 %Duengg05.0-54.0The [facility] HospitalComment on above:Performed By: #### URTPCR #### [facility] [address] [place] [address] Dr. Stu SequeiraHemoglobin (Bld) [Mass/Vol]14.5 g/cRYjdpis03.0-18.0The [facility] HospitalComment on above:Performed By: #### URTPCR #### [facility] [address] [place] [address] Dr. Stu Montana (RBC) [Entitic mass]31.2 lmYzzbnc24.9-34.0The [facility] HospitalComment on above:Performed By: #### URTPCR #### [facility] [address] [place] [address] Dr. Stu HayesHC (RBC) [Mass/Vol]33.3 g/hDOolsoa50.9-35.2The [facility] HospitalComment on above:Performed By: #### URTPCR #### [facility] [address] [place] [address] Dr. Stu HayesV (RBC) [Entitic vol]93.5 aGVhgyea10.0-94.0The [facility] HospitalComment on above:Performed By: #### URTPCR #### [facility] [address] [place] [address] Dr. Stu SequeiraPLT259 103/xuPpnygc730-774Mbg [facility] HospitalComment on above: Performed By: #### URTPCR #### [facility] [address] [place] [address] Dr. Stu SequeiraRBC4.65 106/ulCritically low4.70-6.10The [facility] HospitalComment on above:Performed By: #### URTPCR #### [facility] [address] [place] [address] Dr. Stu SequeiraWBC9.9 103/ulNormal4.0-11.0The [facility] HospitalComment on above: Performed By: #### URTPCR #### [facility] [address] [place] [address] Dr. Stu SequeiraMAGNESIUMon 33-60-9036Rbbmbgqbh [Mass/Vol]2.0 mg/dLNormal1.8-2.4 The [facility] HospitalComment on above:Performed By: #### URTPCR #### [facility] [address] [place] [address] Dr. Stu SequeiraRENAL FUNCTION PANELon 83-60-8984Gwcgsws [Mass/Vol]3.5 g/dLNormal 3.4-5.0The [facility] HospitalComment on above:Performed By: #### URTPCR #### [facility] [address] [address] [address] Stu SequeiraCalcium [Mass/Vol]8.8 mg/dLNormal8.5-10.1The [facility] Comment on above:Performed By: #### URTPCR #### [facility] [address] [address] [address] Stu SequeiraChloride [Moles/Vol]105 mmol/TDqzlil23-964Fwj [facility] Comment on above:Performed By: #### URTPCR #### [facility] [address] [address] [address] Stu SequeiraCO2 [Moles/Vol]28.4 mmol/MLujbca18.0-32.0The [facility] Comment on above:Performed By: #### URTPCR #### [facility] [address] [place] [address] Dr. Stu SequeiraCreatinine [Mass/Vol]1.69 mg/dLCritically high0.70-1.30The [facility] HospitalComment on above:Performed By: #### URTPCR #### [facility] [address] [place] [address] Dr. Stu MurdockGFR-AF BDILLPOB02 mL/min/1.03o5Rwlwwafrid low>=60The [facility] HospitalComment on above:Performed By: #### URTPCR #### [facility] [address] [address] [address] Stu MurdockGFR-NON AF YVCBPEOG14 mL/min/1.91i9Ilctvmalie low>=60The [facility] HospitalComment on above:Performed By: #### URTPCR #### [facility] [address] [place] [address] Dr. Stu SequeiraGlucose [Mass/Vol]120 mg/dLCritically umir22-964Ims [facility] HospitalComment on above:Performed By: #### URTPCR #### [facility] [address] [place] [address] Dr. Stu SequeiraPhosphate [Mass/Vol]3.7 mg/dLNormal2.6-4.7The [facility] Comment on above:Performed By: #### URTPCR #### [facility] [address] [address] [address] Stu Rosalesassium [Moles/Vol]5.0 mmol/LNormal3.5-5.1[facility] Comment on above:Performed By: #### URTPCR #### [facility] [address] [address] [address] Stu Lemusdium [Moles/Vol]139 mmol/DQhvncd158-772OurGrand [facility] Hospital Comment on above:Performed By: #### URTPCR #### [facility] [address] [place] [address] Dr. Stu SequeiraUrea nitrogen [Mass/Vol]21.0 mg/dLCritically high7.0-18.0[facility] HospitalComment on above:Performed By: #### URTPCR #### [facility] [address] [place] [address] Dr. Stu Jackson RANDOM W/MICROSCOPICon 07-70-0891JYFOEBUNVCAX SEENNormalNONE SEENGrand Lake Joint [facility] District Memorial HospitalComment on above:Performed By: #### UAMIC #### [facility] [address] [place] [address] Dr. Stu Carrasco Ql (U)NegativeNormalNEGATIVEGrand [facility] Comment on above:Performed By: #### UAMIC #### [facility] [address] [place] [address] Dr. Stu SequeiraCASTCARLOSE SEENNormalNONE SEENGrand Lake Joint [facility] District Memorial HospitalComment on above:Performed By: #### UAMIC #### [facility] [address] [place] [address] Dr. Stu Enriquez (U)SL CLOUDYAbnormalCLEARThe [facility] HospitalComment on above:Performed By: #### UAMIC #### [facility] [address] [place] [address] Dr. Stu Morales (U)LT. YELLOWNormalYELLOWGrand Lake Joint [facility] District Memorial HospitalComment on above:Performed By: #### UAMIC #### [facility] [address] [address] [address] Stu SequeiraCrystals LM Nom (Urine sed)NONE SEENNormalNONE SEENGrand Lake Joint Township District Memorial HospitalComment on above:Performed By: #### UAMIC #### [facility] [address] [address] [address] Peraza ChangEpithelial cells LM Ql (Urine sed)RARENormalNONE SEEN /RAREThe [facility] HospitalComment on above:Performed By: #### UAMIC #### [facility] [address] [address] [address] Stu SequeiraGlucose Ql (U)NegativeNormalNEGATIVEGrand Lake [facility] District Memorial HospitalComment on above:Performed By: #### UAMIC #### [facility] [address] [place] [address] Dr. Stu SequeiraHemoglobin Ql (U)NegativeNormalNEGATIVELakehealth Tripoint Medical Center on above:Performed By: #### UAMIC #### [facility] [address] [address] [address] Stu SequeiraKetones Ql (U)NegativeNormalNEGATIVEGrand Lake [facility] Memorial HospitalComment on above:Performed By: #### UAMIC #### [facility] [address] [address] [address] Stu SequeiraLEUKOCYTESNegativeNormalNEGATIVEGrand [facility] HospitalComeaton rapids medical center on above:Performed By: #### UAMIC #### [facility] [address] [address] [address] Stu SequeiraMUCOUSNONE SEENNormalNONE SEENGrand Lake [facility] District Memorial HospitalComment on above:Performed By: #### UAMIC #### [facility] [address] [place] [address] Dr. Stu SequeiraNitrite Ql (U)NegativeNormalNEGATIVEGrand Lake [facility] District Memorial HospitalComment on above:Performed By: #### UAMIC #### [facility] [address] [address] [address] Yilan ChangpH (U)5.0 [pH]Normal5-9The [facility] HospitalComment on above: Performed By: #### UAMIC #### [facility] [address] [place] [address] Dr. Stu SequeiraGezlmBFR0-3Dwoovk6-2Qfw [facility] HospitalComment on above:Performed By: #### UAMIC #### [facility] [address] [place] [address] Dr. Stu SequeiraSPEC GRAVITY1.863Sprecw6.005-<=1.025The [facility] HospitalComment on above:Performed By: #### UAMIC #### [facility] [address] [place] [address] Dr. Stu SequeiraUA PROTEINNegativeNormalNEGATIVE/ TRACEThe [facility] Comment on above:Performed By: #### UAMIC #### [facility] [address] [place] [address] Dr. Stu Youssefbilinogen Qn (U)0.2 {Yared'U}/dLNormal0.2 - 1.0The [facility] HospitalComment on above:Performed By: #### UAMIC #### [facility] [address] [place] [address] Dr. Stu SequeiraWBCNONE SEENNormalNONE SEENThe [facility] HospitalComment on above: Performed By: #### UAMIC #### [facility] [address] [place] [address] Dr. Stu SequeiraURIC ACID SERUMon 49-48-9224Rrtnd [Mass/Vol]7.6 mg/dLCritically high3.5-7.2The [facility] HospitalComment on above:Performed By: #### URTPCR #### [facility] [address] [place] [address] Dr. Stu Lara T PROTEIN CREAT RATIOon 24-00-4217Ooeletx (U) [Mass/Vol] 19.9 mg/dLCritically high<=12.0The [facility] HospitalComment on above:Performed By: #### URTPCR #### [facility] [address] [place] [address] Dr. Stu Luna PROT CREAT RAT0.13[facility] HospitalComment on above: Performed By: #### URTPCR #### [facility] [address] [address] [address] Stu Lara XXPVE377.49 mg/cOFyhgym19.00-300.00[facility] Comment on above:Performed By: #### URTPCR #### [facility] [address] [address] [address] Stu SequeiraVITAMIN D 25 OHon 41-14-3106DCF D 25-OH52.3 ng/mLNormalThe [facility]ton Methodist HospitalComment on above:Performed By: #### URTPCR #### [facility] [address] [place] [address] Dr. Stu Rojas D RANGESSEE BELOWNoTrumbull Regional Medical CenterComment on above: Result Comment: <20 ng/mL Vit D deficient 20 - <30 ng/mL Vit D insufficient 30 - 100 ng/mL Vit D sufficient >100 ng/mL Potential ToxicityPerformed By: #### URTPCR #### [facility] [address] [place] [address] Dr. Stu SequeiraPatient Correspondenceon [id number] Correspondence [id number]#[id number]:127[facility] Medical CenterPatient Letter FTon [phone] Letter [facility] May 04, 2021 Dear Mr. Don Elkins, [...] to. If you fail to do so, Iwill have no choice but to terminate our physician/patient relationship and you will be subsequently receiving a letter reflecting such within the next couple weeks if we do not hear back from you. I hope you are doing well in this holiday season. Sincerely, Tam Wilson M.D., FACS [facility] OVIDIO VALENTIN, Tam PNormalSouthwest General Health Center Metabolic Panlon 18-90-2256Bhbvi gap [Moles/Vol]8 mmol/LLow9-18[facility] ClevelandCalcium [Mass/Vol]8.9 mg/dLNormal8.5-10.2CMercy Health Clermont HospitalvelandChloride [Moles/Vol] 103 mmol/YVtqihq36-898Cuqqmmscj Clinic ClevelandCO2 [Moles/Vol]27 mmol/LNormal 22-30Mercy HealthCreatinine [Mass/Vol]1.52 mg/dLHigh0.73-1.22 Mercy HealtheGFR- Amer.55NormalCUniversity Hospitals TriPoint Medical Center eGFR-All Other Races46 .NormalWVUMedicine Barnesville Hospital on above:Result Comment: eGFR (Estimated GFR) Units of measure: [...] the eGFR may not accurately reflect actual GFR.Glucose [Mass/Vol]238 mg/dLHigh 74-99WV[facility] on above:Result Comment: The Chinese Diabetes Association (ADA) provides guidance for cutoff [...] Standards of Medical Care in Diabetes 2016, Chinese Diabetes Association. Diabetes Care. 2016.39(Suppl 1).Potassium [Moles/Vol]4.6 mmol/L Normal3.7-5.1CUniversity Hospitals TriPoint Medical CenterSodium [Moles/Vol]138 mmol/QKrrtbi752-149 Mercy HealthUrea nitrogen [Mass/Vol]19 mg/dLNormal9-24Mercy HealthCNOVSPon 42-70-3875XFTRPWJkqvd (SP) Office ([place]) DON ELKINS ([id number]) 1950 M Date Time Provider Department 12/20/20 2:15 PM CLAUDIO PARKER During your visit today, we recorded the following information about you: Temperature Pulse Respiration Blood pressure 97.7 degrees 81/minute 16/minute 136/63 Weight Height 112.9 kg 1.727 m Claudio Parker MD 12/21/2020 12:37 PM Signed PATIENT NAME: Don Elkins DATE: 12/20/2020 PRIMARY CARE PHYSICIAN: Dr. Sal Sabillon/Marj Demarco, IRON WORKER APPRENTICE OTHER PHYSICIANS: Dr. Wilson, Dr. Cortez, Dr. [...] HISTORY: PAST MEDICAL HISTORY Diagnosis Date - [place]'s disease (HCC) - Coronary arteriosclerosis - DVT (deep venous thrombosis) (HCC) - Hepatitis B - HTN (hypertension) - Hyperthyroidism - AKASH (obstructive sleep apnea) - Prostate cancer (HCC) - Pulmonary embolism (HCC) PAST SURGICAL HISTORY: PAST SURGICAL HISTORY Procedure Laterality Date - APPENDECTOMY - CARPAL TUNNEL Bilateral - COLONOSCOP W/ OR W/O [facility] SPEC Colonoscopy - CORONARY ARTERY BYPASS GRAFT HX 03/19/2018 - LEFT HEART CATH,PERCUTANEOUS 03/15/2018 - PAST SURGICAL HISTORY OF Prostate removed - PAST SURGICAL HISTORY OF Cyst r (more content not included)...NormalMercy HealthRemote CBCDIF (for COUNT INCLUDES THE [facility] use only)on 77-99-7625Zwv Baso0.08 k/uLNormal<0.11CAultman Orrville Hospital Cleregency hospital cleveland eastAbs Mono0.55 k/uLNormal<0.87Mercy HealthAbs Neut 5.06 k/uLNormal1.45-7.50Mercy HealthAbsolute nRBC<0.01Normal<0.01 Mercy HealthBasophils/100 WBC (Bld)1.0 %NormalMercy HealthDTYPEAuto DiffNormalCUniversity Hospitals TriPoint Medical CenterEosinophils (Bld) [#/Vol] 0.26 10*3/uLNormal<0.46Mercy HealthEosinophils/100 WBC (Bld)3.3 % NormalMercy HealthErythrocyte distribution width (RBC) [Ratio]12.2 %Sncvdq52.5-15.0Mercy HealthHematocrit (Bld) [Volume fraction] 37.0 %Low39.0-51.0Mercy HealthHemoglobin (Bld) [Mass/Vol]12.7 g/dL Low13.0-17.0Mercy HealthLymphocytes (Bld) [#/Vol]1.86 10*3/uL Normal1.00-4.00Mercy HealthLymphocytes/100 WBC (Bld)23.8 %Normal Mercy HealthMCH30.7 sXUkxohv06.0-34.0[facility] MCHC (RBC) [Mass/Vol]34.3 g/mGHuoduk07.5-36.0Mercy HealthMCV (RBC) [Entitic vol]89.4 qIRhjqsr68.0-100.0Mercy HealthMonocytes/100 WBC (Bld)7.0 %NormalMercy HealthNeutrophils/100 WBC (Bld)64.9 %Normal Mercy HealthNRBCs0.0 /100 WTTQxhdvn7OoqdytcafMercy Health Platelet mean volume (Bld) [Entitic vol]11.9 fLNormal9.0-12.7CUniversity Hospitals TriPoint Medical CenterPlatelets (Bld) [#/Vol]207 10*3/rUYgcaav795-887Vikhspqoo Clinic ClevelandRBC (Bld) [#/Vol]4.14 10*6/uLLow4.20-6.00Mercy HealthWBC (Bld) [#/Vol]7.81 10*3/uLNormal3.70-11.00Mercy HealthCNPNon 70-23-9069YMXJKvtwzsphg ([place]) DON ELKINS ([id number]) 1950 M Date Time Provider Department 12/19/20 CLAUDIO PARKER During your visit today, we recorded the following information about you: Marianna Haque RN 12/19/2020 2:08 PM Signed Orders for CBC, CMP, and Prothrombin Gene Mutation pended. Please review and approve. 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 Wilson, Dr. Cortez, Dr. Arvizu ([facility] Neu[facility]) HPI: This is a 70 year [...] (deep venous thrombosis) (HCC) (more content not included)...NormalMercy HealthConsent for Procedure/Surgeryon 78-16-6568Cjcaksu for Procedure/Surgery [id number]#1.00CD:127[facility]ner Medical CenterAmbulatory Clinical Summaryon 67-26-7502Afhxsgqycx Clinical Summary {64-42-03-28-5r-81-87-8d-0v-dw-89-1w-8d-75-b8-81}CD:[id number] Medical CenterAmbulatory Clinical Summary {92-v2-45-78-q0-a3-35-3u-8u-6b-9l-4f-9b-1b-a0-53}CD:[id number] Medical CenterGastroenterology Office/Clinic Noteon 42-10-0296Uwdirkqkfkzrvzks Office/Clinic NoteChief Complaint self ref- diarrhea HPI Staff This is a 70 year old male who presents today for a self referral for diarrhea. History of Present Illness The patient or their guardian verbally consented to allow Madeline Collins to record this visit. The 70-year-old white male presents today for dysphagia and diarrhea. He was evaluated by Dr. Stone Arboleda in 2015 for dysphagia and history of colon polyps. He proceeded with an EGD and esophageal motility testing and was diagnosed with achalasia. The [facility] was [facility], buthe states he was not treated with pneumatic [...] on a trial of Questran and rule outpancreatic insufficiency. We will proceed with a colonoscopy [...] Dr. Arboleda. He was referred to [facility] at that time, but pneumatic dilation was not done or recommended by [facility] as, according to the patient, they were concerned about possible perforation. The patient continued to have sporadic dysphagia. I will repeat an EGD for re-evaluation. 5. Small intestinal bacterial overgrowth (SIBO) (K63.89: Other specified diseases of intestine) The patient will start probiotics and antibiotics. ATTESTATION: Documentation services were performed by SOTO after patient consented to recording for virtual psychiatric clinical nurse specialist and provider reviewed before signing. SOTO: Marcelina Lai Follow-up With When Contact Information JANICE VALENTIN, BHARGAVI Braun, MED Within 2 weeks [facility] [address] [place] [address]- Additional Instructions: Patient Education Chronic Diarrhea Problem List/Past Medical History Ongoing [place] disease BMI 35.0-35.9,adult Diabetes Frequency GERD Hematuria Hx of alf use of blood thinners Hypertension Kidney stone Microscopic hematuria- with sy (more content not included)...[facility]exner Medical CenterComment on above:Result Comment: Electronically Signed By: Kade CAMACHO MD\.br\Date and Time Signed: 11/14/20 14:16 EDT\.br\Electronically Co- Signed By: Marcelina Lai\.br\Date and Time Co-Signed: 11/14/20 13:28 EDT Patient Educationon 01-70-0170Cvniptc EducationGastroenterology Chronic Diarrhea Diarrhea is a condition in which a person passes frequent loose and watery stools. It can cause youto feel weak and dehydrated. Dehydration can make [...] water, ice chips, diluted fruit juice, and low- calorie sports drinks. ? Follow the diet recommended [...] and water are not available, use hand field service tech. ? Make sure that all people in your household wash their hands well and often. ? Take yuih-leq-icmoxgv and prescription medicines only as told by [...] and water are not available, use hand field service tech. ? It is important that you treat your diarrhea as told by your health care provider. This information is not intended to replace advice given to you by your health care provider. Make sure you discuss any questions you have with your health care provider. Document Released: 07/25/2004 Document Revised: 07/31/2018 Document Reviewed: 03/24/2017 Elsevier Patient Education ? 2020 [employer] POCT Glucoseon 56-10-0606Pcfjzxt [Mass/Vol]202 mg/dLCritically bycj10-134HimbeColorado Mental Health Institute At PuebloComment on above:Performed By: #### PGLU #### [facility] [address] [place] [address] GBD Performed [facility] Hospital - DenverComment on above:Performed By: #### PGLU #### [facility] [address] [place] [address] Mljohom [Mass/Vol]202 mg/gGBkjg45 - 115 mg/dlFort [place], [place] Interpretation and review of laboratory resultsAbClarissa, [place] Performed [place], KYGlucose [Mass/Vol]223 mg/dLCritically ysps07-208WodktColorado Mental Health Institute At PuebloComment on above:Performed By: #### PGLU #### [facility] [address] [place] [address] KOV Performed [facility] Hospital - DenverComment on above:Performed By: #### PGLU #### [facility] [address] [place] [address] Dixtpjc [Mass/Vol]223 mg/dNIwmo11 - 115 mg/dlFort [place], [place] Interpretation and review of laboratory resultsAbClar[place], [place] Performed [facility], KYPROTIME-INRon 21-63-5814YWK Coag (PPP) [Relative time]2.3 {INR}[place], KYComment on above:Warfarin Therapy INR Therapeutic: 2.0-3.0 With Mechanical Valve: >2.5 Low-intensity Therapeutic Range: 1.5-2.0 Mod-intensity Therapeutic Range: 2.0-3.0 High-intensity Therapeutic Range: 2.5-3.5 HIgh-intensity Therapeutic Range: 3.0-4.0 Common Critical/Alarm Value: 5.0 Common Upper Limit Reported: 10.0 Effective 11/26/2018: Please note methodology and/or reference ranges have changed. Interpretation and review of laboratory resultsAbPike Community Hospital, KYPT Coag (PPP) [Time]26.5 [facility], KYComment on above:Effective 11/26/18 Please note methodology and/or reference ranges have changed. Prothrombin Timeon 69-18-8112FXP Coag (PPP) [Relative time]2.3 {INR}NormalColorado Mental Health Institute At PuebloComment on above:Result Comment: Warfarin Therapy INR Therapeutic: 2.0-3.0 With Mechanical Valve: >2.5 Low-intensity Therapeutic Range: 1.5-2.0 Mod-intensity Therapeutic Range: 2.0-3.0 High-intensity Therapeutic Range: 2.5-3.5 HIgh-intensity Therapeutic Range: 3.0-4.0 Common Critical/Alarm Value: 5.0 Common Upper Limit Reported: 10.0 Effective 11/26/2018: Please note methodology and/or reference ranges have changed.Performed By: #### PGLU #### [facility] [address] [place] [address] KU Coag (PPP) [Time]26.5 sCritically high12.3-14.9Color[facility] Health Institute At PuebloComment on above:Result Comment: Effective 11/26/18 Please note methodology and/or reference ranges have changed.Performed By: #### PGLU #### [facility] [address] [place] [address] HFUG Glucoseon 53-95-4679Whtzrpe [Mass/Vol]154 mg/dLCritically high 60-115Color[facility] Institute At PuebloComment on above:Performed By: #### PGLU #### [facility] [address] [place] [address] HDF Performed onACCU-CHEKNormalColorado Mental Health Institute At PuebloComment on above:Performed By: #### PGLU #### [facility] [address] [place] [address] Brpfpsq [Mass/Vol]154 mg/hTDzuo19 - 115 mg/dlBarney Children's Medical Center, [place] Interpretation and review of laboratory resultsAbPike Community Hospital, [place] Performed onKettering [facility], KYGlucose [Mass/Vol]241 mg/dLCritically dipx27-001LsqihColorado Mental Health Institute At PuebloComment on above:Performed By: #### PT #### [facility] [address] [place] [address] YUO Performed [facility] Hospital - DenverComment on above:Performed By: #### PT #### [facility] [address] [place] [address] Wkvgtid [Mass/Vol]241 mg/tCGgzg57 - 115 mg/dlBarney Children's Medical Center, [place] Interpretation and review of laboratory resultsAbPike Community Hospital, [place] Performed onKettering Health Behavioral Medical Center, KYGlucose [Mass/Vol]194 mg/dLCritically edtp76-352RnoxxColorado Mental Health Institute At PuebloComment on above:Performed By: #### PT #### [facility] [address] [place] [address] LIW Performed [facility] Hospital - DenverComment on above:Performed By: #### PT #### [facility] [address] [place] [address] Vgpbvlg [Mass/Vol]194 mg/cNWlhy45 - 115 mg/dlBarney Children's Medical Center, [place] Interpretation and review of laboratory resultsAbPike Community Hospital, [place] Performed onKettering Health Behavioral [facility] Center, KYGlucose [Mass/Vol]228 mg/dLCritically zckl59-948BsxenColorado Mental Health Institute At PuebloComment on above:Performed By: #### PT #### [facility] [address] [place] [address] SIM Performed [facility] - DenverComment on above:Performed By: #### PT #### [facility] [address] [place] [address] Jsivqkt [Mass/Vol]228 mg/sKUbdv08 - 115 mg/dl[place], [place] Interpretation and review of laboratory resultsAbnoBrecksville VA / [facility], [place] Performed onACCU-[facility] BELLEPROTIME-INRon 66-77-6933XMY Coag (PPP) [Relative time]2.1 {INR}[place], KYComment on above:Warfarin Therapy INR Therapeutic: 2.0-3.0 With Mechanical Valve: >2.5 Low-intensity Therapeutic Range: 1.5-2.0 Mod-intensity Therapeutic Range: 2.0-3.0 High-intensity Therapeutic Range: 2.5-3.5 HIgh-intensity Therapeutic Range: 3.0-4.0 Common Critical/Alarm Value: 5.0 Common Upper Limit Reported: 10.0 Effective 11/26/2018: Please note methodology and/or reference ranges have changed. Interpretation and review of laboratory resultsAbnoKanona, KYPT Coag (PPP) [Time]24.3 sHigBlue Gap, KYComment on above:Effective 11/26/18 Please note methodology and/or reference ranges have changed. Prothrombin Timeon 49-89-6922FKU Coag (PPP) [Relative time]2.1 {INR}NormalColorado Mental Health Institute At PuebloComment on above:Result Comment: Warfarin Therapy INR Therapeutic: 2.0-3.0 With Mechanical Valve: >2.5 Low-intensity Therapeutic Range: 1.5-2.0 Mod-intensity Therapeutic Range: 2.0-3.0 High-intensity Therapeutic Range: 2.5-3.5 HIgh-intensity Therapeutic Range: 3.0-4.0 Common Critical/Alarm Value: 5.0 Common Upper Limit Reported: 10.0 Effective 11/26/2018: Please note methodology and/or reference ranges have changed.Performed By: #### PT #### [facility] [address] [place] [id number] [phone] Coag (PPP) [Time]24.3 sCritically high12.3-14.9[facility] Institute At PuebloComment on above:Result Comment: Effective 11/26/18 Please note methodology and/or reference ranges have changed.Performed By: #### PT #### [facility] [address] [place] [address] WMOJ Glucoseon 87-99-3767Qydfqoz [Mass/Vol]234 mg/dLCritically high 60-115Color[facility] Institute At PuebloComment on above:Performed By: #### PT #### [facility] [address] [place] [address] ETU Performed [facility] - DenverComment on above:Performed By: #### PT #### [facility] [address] [place] [address] Fmgsynb [Mass/Vol]234 mg/dZUkwo34 - 115 mg/dlBarney Children's Medical [facility], [place] Interpretation and review of laboratory resultsAbPike Community Hospital, [place] Performed onKettering [facility] Behavioral [facility] Center, KYGlucose [Mass/Vol]246 mg/dLCritically bfma23-118PuxshColorado Mental Health Institute At PuebloComment on above:Performed By: #### PT #### [facility] [address] [place] [address] MHF Performed [facility] - DenverComment on above:Performed By: #### PT #### [facility] [address] [place] [address] Skqgnhk [Mass/Vol]246 mg/pZVxml22 - 115 mg/dlBarney Children's [facility], [place] Interpretation and review of laboratory resultsAbSelect Medical Specialty [facility] [place], [place] Performed onFisher-Titus Medical [facility] [place], KYGlucose [Mass/Vol]258 mg/dLCritically holh08-138[facility]- [place], KYComment on above:Performed By: #### PT #### [facility] [address] [place] [address] Hhaturksuytevb and review of laboratory resultsAbSelect Medical Specialty [facility] - [facility], KYPerformed onC[facility] Clinic [facility]- [place], KYGlucose [Mass/Vol]249 mg/dL Critically mbrs90-332LmxrwColorado Mental Health Institute At PuebloComment on above:Performed By: #### PT #### [facility] [address] [place] [address] XZQ Performed [facility] - DenverComment on above:Performed By: #### PT #### [facility] [address] [place] [address] Dtaijsr [Mass/Vol]249 mg/aMBknf57 - 115 mg/dlFort [place], [place] Interpretation and review of laboratory resultsAbPike Community Hospital, [place] Performed onCarson City, KYPROTIME-INRon 73-14-3183PYN Coag (PPP) [Relative time]1.6 {INR}[place], KYComment on above:Warfarin Therapy INR Therapeutic: 2.0-3.0 With Mechanical Valve: >2.5 Low-intensity Therapeutic Range: 1.5-2.0 Mod-intensity Therapeutic Range: 2.0-3.0 High-intensity Therapeutic Range: 2.5-3.5 HIgh-intensity Therapeutic Range: 3.0-4.0 Common Critical/Alarm Value: 5.0 Common Upper Limit Reported: 10.0 Effective 11/26/2018: Please note methodology and/or reference ranges have changed. Interpretation and review of laboratory resultsAbnoKanona, KYPT Coag (PPP) [Time]19.6 [place], KYComment on above:Effective 11/26/18 Please note methodology and/or reference ranges have changed. Prothrombin Timeon 14-48-6795FLB Coag (PPP) [Relative time]1.6 {INR}[facility] Springs Medical CenterComment on above:Result Comment: Warfarin Therapy INR Therapeutic: 2.0-3.0 With Mechanical Valve: >2.5 Low-intensity Therapeutic Range: 1.5-2.0 Mod-intensity Therapeutic Range: 2.0-3.0 High-intensity Therapeutic Range: 2.5-3.5 HIgh-intensity Therapeutic Range: 3.0-4.0 Common Critical/Alarm Value: 5.0 Common Upper Limit Reported: 10.0 Effective 11/26/2018: Please note methodology and/or reference ranges have changed.Performed By: #### PT #### [facility] [address] [place] [address] VC Coag (PPP) [Time]19.6 sCritically high12.3-14.9[facility] Institute At PuebloComment on above:Result Comment: Effective 11/26/18 Please note methodology and/or reference ranges have changed.Performed By: #### PT #### [facility] [address] [place] [address] PLBH Glucoseon 15-61-9409Savedji [Mass/Vol]290 mg/dLCritically high 60-115Color[facility] Institute At PuebloComment on above:Performed By: #### PT #### [facility] [address] [place] [address] YOM Performed [facility] - DenverComment on above:Performed By: #### PT #### [facility] [address] [place] [address] Zuyanao [Mass/Vol]290 mg/bTSppp12 - 115 mg/dl[place], [place] Interpretation and review of laboratory resultsAbCl[place], [place] Performed [facility], KYGlucose [Mass/Vol]337 mg/dLCritically inau20-786GsrgyColorado Mental Health Institute At PuebloComment on above:Performed By: #### PGLU #### [facility] [address] [place] [address] XKT Performed [facility] - DenverComment on above:Performed By: #### PGLU #### [facility] [address] [place] [address] Lhlabrh [Mass/Vol]337 mg/pXIcnj06 - 115 mg/dlFort [place], [place] Interpretation and review of laboratory resultsAbCl[place], [place] Performed [facility], KYGlucose [Mass/Vol]313 mg/dLCritically seqp24-091EgagbColorado Mental Health Institute At PuebloComment on above:Performed By: #### PGLU #### [facility] [address] [place] [address] FNH Performed [facility] - DenverComment on above:Performed By: #### PGLU #### [facility] [address] [place] [address] Nknrcsk [Mass/Vol]313 mg/mRYsuc76 - 115 mg/dl[place], [place] Interpretation and review of laboratory resultsAbnoKanona, [place] Performed [place], KYGlucose [Mass/Vol]309 mg/dLCritically thav62-285GfldhColorado Mental Health Institute At PuebloComment on above:Performed By: #### PGLU #### [facility] [address] [place] [address] ANM Performed [facility] DenverComment on above:Performed By: #### PGLU #### [facility] [address] [place] [address] Veccofn [Mass/Vol]309 mg/hISlzz12 - 115 mg/dlFort [place], [place] Interpretation and review of laboratory resultsAbCl[place], [place] Performed [place], KYPROTIME-INRon 73-59-7332XEF Coag (PPP) [Relative time]1.1 {INR}[place], KYComment on above:Warfarin Therapy INR Therapeutic: 2.0-3.0 With Mechanical Valve: >2.5 Low-intensity Therapeutic Range: 1.5-2.0 Mod-intensity Therapeutic Range: 2.0-3.0 High-intensity Therapeutic Range: 2.5-3.5 HIgh-intensity Therapeutic Range: 3.0-4.0 Common Critical/Alarm Value: 5.0 Common Upper Limit Reported: 10.0 Effective 11/26/2018: Please note methodology and/or reference ranges have changed. PT Coag (PPP) [Time]14.7 [place], KYComment on above:Effective 11/26/18 Please note methodology and/or reference ranges have changed. Prothrombin Timeon 46-62-4455MQI Coag (PPP) [Relative time]1.1 {INR}NormalColorado Mental Health Institute At PuebloComment on above:Result Comment: Warfarin Therapy INR Therapeutic: 2.0-3.0 With Mechanical Valve: >2.5 Low-intensity Therapeutic Range: 1.5-2.0 Mod-intensity Therapeutic Range: 2.0-3.0 High-intensity Therapeutic Range: 2.5-3.5 HIgh-intensity Therapeutic Range: 3.0-4.0 Common Critical/Alarm Value: 5.0 Common Upper Limit Reported: 10.0 Effective 11/26/2018: Please note methodology and/or reference ranges have changed.Performed By: #### PGLU #### [facility] [address] [place] [address] TU Coag (PPP) [Time]14.7 tNefksw93.3-14.9[facility] [facility] P[facility]bloComment on above:Result Comment: Effective 11/26/18 Please note methodology and/or reference ranges have changed.Performed By: #### PGLU #### [facility] [address] [place] [address] Npxdt Metabolic Panel Reflex Mgon [id number] gap [Moles/Vol]10 mmol/LNormal9-15[facility] At PuebloComment on above:Performed By: #### TS3C #### [facility] [address] [place] [address] Xxubyul [Mass/Vol]8.2 mg/dLLow8.5-9.9[facility] Comment on above:Performed By: #### TS3C #### [facility] [address] [place] [address] Lccjxzsr [Moles/Vol]98 mmol/EKkgrcs00-305OonyaColorado Mental Health Institute At PuebloComment on above:Performed By: #### TS3C #### [facility] [address] [place] [address] EH1 [Moles/Vol]23 mmol/FAzeift67-78SermdColorado Mental Health [facility] Comment on above:Performed By: #### TS3C #### [facility] [address] [place] [address] Qwniolpzrl [Mass/Vol]1.38 mg/dLCritically high0.70-1.20[facility] At PuebloComment on above:Performed By: #### TS3C #### [facility] [address] [place] [address] ATB/1.73 sq M predicted among blacks MDRD (S/P/Bld) [Vol rate/Area] mL/min/{1.73_m2}Normal>60[facility] At P[facility]bloComment on above:Result Comment: >60 mL/min/1.73m2 EGFR, calc. for ages 18 and older using the MDRD formula (not corrected for weight), is valid for stable renal function.Performed By: #### TS3C #### [facility] [address] [place] [address] KWV/1.73 sq M.predicted MDRD (S/P/Bld) [Vol rate/Area]51.1 mL/min/{1.73_m2}Low>60[facility] At PuebloComment on above:Result Comment: >60 mL/min/1.73m2 EGFR, calc. for ages 18 and older using the MDRD formula (not corrected for weight), is valid for stable renal function.Performed By: #### TS3C #### [facility] [address] [place] [address] Qztumif [Mass/Vol]266 mg/dLCritically fgur63-12ElhfyDenver SpringsComment on above:Performed By: #### TS3C #### [facility] [address] [place] [address] Bqednqllq reflex Mg4.0 mEq/LNormal3.4-4.9[facility] At PuebloComment on above:Performed By: #### TS3C #### [facility] [address] [place] [address] Onpldj [Moles/Vol]131 mmol/QCot502-998PslksColorado Mental Health [facility] Comment on above:Performed By: #### TS3C #### [facility] [address] [place] [address] Fova nitrogen [Mass/Vol]13 mg/dLNormal8-23[facility] At PuebloComment on above:Performed By: #### TS3C #### [facility] [address] [place] [address] Lfqhv Metabolic Panel w/ Reflex to MGon [id number] gap [Moles/Vol]10 mmol/LMercy Health- [place], KYCalcium [Mass/Vol]8.2 mg/dLLow8.5 - 9.9 mg/dLWestern [facility]- [place], KYChloride [Moles/Vol]98 mmol/LMmiami valley hospitaly [facility]- [place], KYCO2 [Moles/Vol]23 mmol/LMmiami valley hospitaly Health- [place], KYCreatinine [Mass/Vol]1.38 mg/dLHigh0.7 - 1.2 mg/dLSumma Health [facility]- [place], KYGFR >60.0>60[facility]- [place], [place] Comment on above:>60 mL/min/1.73m2 EGFR, calc. for ages 18 and older using the MDRD formula (not corrected for weight), is valid for stable renal function. GFR Non- Vbxrouqb35.1Low>60[facility]- [place], KYComment on above:>60 mL/min/1.73m2 EGFR, calc. for ages 18 and older using the MDRD formula (not corrected for weight), is valid for stable renal function. Glucose [Mass/Vol]266 mg/dGQszo46 - 99 mg/dLWestern Reserve Hospital- [place], KYInterpretation and review of laboratory resultsAbnormalWestern Reserve Hospital- [place], KYPotassium [Moles/Vol]4.0 mmol/LMercy Health- [place], KYSodium [Moles/Vol]131 mmol/LLowWestern Reserve Hospital- [place], KYUrea nitrogen [Mass/Vol]13 mg/dL8 - 23 mg/dLBarney [facility], [place] CBC With Platelet and Differentialon [id number] (Bld) [#/Vol]0.1 10*3/uLNormal0.0-0.2MDenver SpringsComment on above:Performed By: #### TS3C #### [facility] [address] [place] [address] Dozrlbkfg/100 WBC (Bld)0.7 %[facility] Comment on above:Performed By: #### TS3C #### [facility] [address] [place] [address] Fuhdnpwaapl (Bld) [#/Vol]0.5 10*3/uLNormal0.0-0.7[facility] At PuebloComment on above:Performed By: #### TS3C #### [facility] [address] [place] [address] Xllcibwpxej/100 WBC (Bld)5.9 %[facility] Comment on above:Performed By: #### TS3C #### [facility] [address] [place] [address] Aybfiypbfxc distribution width (RBC) [Ratio]12.6 %Hgwqoa81.5-14.5 [facility] At P[facility]bloComment on above:Performed By: #### TS3C #### [facility] [address] [place] [address] Eyngvljsiz (Bld) [Volume fraction]31.5 %Low42.0-52.0[facility] At PuebloComment on above:Performed By: #### TS3C #### [facility] [address] [place] [address] Oqqppzusqw (Bld) [Mass/Vol]10.6 g/dLLow14.0-18.0[facility] At P[facility]bloComment on above:Performed By: #### TS3C #### [facility] [address] [place] [address] Sabbfvidiue (Bld) [#/Vol]1.0 10*3/uLNormal1.0-4.8[facility] At P[facility]bloComment on above:Performed By: #### TS3C #### [facility] [address] [place] [address] Xyoxjjivlem/100 WBC (Bld)12.8 %NormalMercy Regional Medical Center Comment on above:Performed By: #### TS3C #### [facility] [address] [place] [address] EJG (RBC) [Entitic mass]31.3 dnLeetuj00.0-31.3MDenver SpringsComment on above:Performed By: #### TS3C #### [facility] [address] [place] [address] DXOE (RBC) [Mass/Vol]33.8 %Hshzkr98.0-37.0[facility] At PuebloComment on above:Performed By: #### TS3C #### [facility] [address] [place] [address] WDY (RBC) [Entitic vol]92.8 oPSmqccp69.0-100.0[facility] At PuebloComment on above:Performed By: #### TS3C #### [facility] [address] [place] [address] Agohxrdtf (Bld) [#/Vol]0.7 10*3/uLNormal0.2-0.8[facility] At P[facility]bloComment on above:Performed By: #### TS3C #### [facility] [address] [place] [address] Vwhnkdesm/100 WBC (Bld)9.0 %[facility] Comment on above:Performed By: #### TS3C #### [facility] [address] [place] [address] Kxuoarnlkyp (Bld) [#/Vol]5.8 10*3/uLNormal1.4-6.5[facility] At PuebloComment on above:Performed By: #### TS3C #### [facility] [address] [place] [address] Hmptmwuuuej/100 WBC (Bld)71.6 %[facility] Comment on above:Performed By: #### TS3C #### [facility] [address] [place] [address] Ublazdvmg (Bld) [#/Vol]169 10*3/vXOgxgjx840-324WkiubColorado Mental Health Institute At PuebloComment on above:Performed By: #### TS3C #### [facility] [address] [place] [address] KXX (Bld) [#/Vol]3.39 10*6/uLLow4.70-6.10[facility] At P[facility]bloComment on above:Performed By: #### TS3C #### [facility] [address] [place] [address] DYL (Bld) [#/Vol]8.1 10*3/uLNormal4.8-10.8[facility] At P[facility]bloComment on above:Performed By: #### TS3C #### [facility] [address] [place] [address] BSQ auto differentialon 05-10-6432Avainqfzc (Bld) [#/Vol]0.1 10*3/uL 0 - 0.2 K/uLWestern Reserve Hospital- [place], KYBasophils/100 WBC (Bld)0.7 %[facility], [place] Eosinophils (Bld) [#/Vol]0.5 10*3/uL0 - 0.7 K/uLSumma Health [facility]- [place], [place] Eosinophils/100 WBC (Bld)5.9 %[facility]- [place], KYErythrocyte distribution width (RBC) [Ratio]12.6 %11.5 - 14.5 %[facility]- [place], KYHematocrit (Bld) [Volume fraction]31.5 %Low42 - 52 %[facility]- [place], KYHemoglobin (Bld) [Mass/Vol]10.6 g/dLLow14 - 18 g/dLWestern Reserve Hospital- [place], KYInterpretation and review of laboratory resultsAbnormalGreene Memorial Hospital [place], KYLymphocytes (Bld) [#/Vol]1.0 10*3/uL1 - 4.8 K/uLSumma Health [facility]- [place], KYLymphocytes/100 WBC (Bld)12.8 %[facility], [facility] (RBC) [Entitic mass]31.3 pg27 - 31.3 pgBarney Children's Medical Center, [facility]HC (RBC) [Mass/Vol] 33.8 %33 - 37 %[facility], [facility]V (RBC) [Entitic vol]92.8 fL80 - 100 fL [facility], HIMonocytes (Bld) [#/Vol]0.7 10*3/uL0.2 - 0.8 K/[facility], KYMonocytes/100 WBC (Bld)9.0 %[facility], KYNeutrophils Absolute5.8 K/uL1.4 - 6.5 K/[facility], KYNeutrophils/100 WBC (Bld)71.6 %[facility], KYPlatelets (Bld) [#/Vol]169 10*3/uL130 - 400 K/[facility], KYRBC (Bld) [#/Vol]3.39 10*6/uLLowBarney Children's Medical Center, KYWBC (Bld) [#/Vol]8.1 10*3/uL4.8 - 10.8 K/[facility], HILactic Acidon 04-09-2019 Lactate [Moles/Vol]1.8 mmol/LNormal0.5-2.2MProtestant Deaconess Hospital, KYComment on above: Performed By: #### PGLU #### [facility] [address] [place] [address] Pmdcutk [Moles/Vol]1.6 mmol/LNormal0.5-2.2MDenver SpringsComment on above:Performed By: #### TS3C #### [facility] [address] [place] [address] Dqkxofn [Moles/Vol]1.4 mmol/LNormal0.5-2.2MDenver SpringsComment on above:Performed By: #### TS3C #### [facility] [address] [place] [address] Obbrpv acid, plasmaon 57-63-1921Bsjawbl [Moles/Vol]1.6 mmol/L0.5 - 2.2 mmol/[facility], KYLactate [Moles/Vol]1.4 mmol/L0.5 - 2.2 mmol/[facility], KYPOCT Glucoseon [id number] [Mass/Vol]379 mg/dLCritically qsls59-095EohkcColorado Mental Health Institute At PuebloComment on above:Performed By: #### PGLU #### [facility] [address] [place] [address] FHT Performed [facility] Hospital - DenverComment on above:Performed By: #### PGLU #### [facility] [address] [place] [address] Tjigfzs [Mass/Vol]379 mg/iSOcwl07 - 115 mg/dlBarney Children's Medical Center, [place] Interpretation and review of laboratory resultsAbPike Community Hospital, [place] Performed onK[facility], KYGlucose [Mass/Vol]329 mg/dLCritically asqd26-387DyaqbColorado Mental Health Institute At PuebloComment on above:Performed By: #### PGLU #### [facility] [address] [place] [address] BUY Performed [facility] - DenverComment on above:Performed By: #### PGLU #### [facility] [address] [place] [address] Drezdew [Mass/Vol]329 mg/lHXics32 - 115 mg/dlBarney Children's Medical Center, [place] Interpretation and review of laboratory resultsAbPike Community Hospital, [place] Performed onK[facility], KYGlucose [Mass/Vol]318 mg/dLCritically shfv13-003ZlvkdColorado Mental Health Institute At PuebloComment on above:Performed By: #### PGLU #### [facility] [address] [place] [address] YVH Performed [facility] - DenverComment on above:Performed By: #### PGLU #### [facility] [address] [place] [address] Qctnpnn [Mass/Vol]318 mg/aTGzpy78 - 115 mg/dlFort [place], [place] Interpretation and review of laboratory resultsAbnormalFort [place], [place] Performed onACCU-CHEKMRock Hill, KYPROTIME-INRon [id number] Coag (PPP) [Relative time]1.1 {INR}[place], KYComment on above:Warfarin Therapy INR Therapeutic: 2.0-3.0 With Mechanical Valve: >2.5 Low-intensity Therapeutic Range: 1.5-2.0 Mod-intensity Therapeutic Range: 2.0-3.0 High-intensity Therapeutic Range: 2.5-3.5 HIgh-intensity Therapeutic Range: 3.0-4.0 Common Critical/Alarm Value: 5.0 Common Upper Limit Reported: 10.0 Effective 11/26/2018: Please note methodology and/or reference ranges have changed. PT Coag (PPP) [Time]14.4 [place], KYComment on above:Effective 11/26/18 Please note methodology and/or reference ranges have changed. Procalcitoninon [id number] ng/mLCritically high0.00-0.15[facility] P[facility]bloComment on above:Result Comment: Reference Range: Adults: <=0.15 ng/mL Children: 0-18 [...] thyroid carcinoma, small cell carcinoma, and renal failure.Performed By: #### TS3C #### [facility] [address] [place] [address] Iutzchnuahwuyo and review of laboratory resultsAbnormalBarney Children's Medical Center, HIProcalcitonin0.23 ng/mLHigh0 - 0.15 ng/mLBarney Children's Medical Center, KYComment on above:Reference Range: Adults: <=0.15 ng/mL Children: 0-18 hours [...] cell carcinoma, and renal failure. Prothrombin Timeon [id number] Coag (PPP) [Relative time]1.1 {INR}[facility] CenterComment on above:Result Comment: Warfarin Therapy INR Therapeutic: 2.0-3.0 With Mechanical Valve: >2.5 Low-intensity Therapeutic Range: 1.5-2.0 Mod-intensity Therapeutic Range: 2.0-3.0 High-intensity Therapeutic Range: 2.5-3.5 HIgh-intensity Therapeutic Range: 3.0-4.0 Common Critical/Alarm Value: 5.0 Common Upper Limit Reported: 10.0 Effective 11/26/2018: Please note methodology and/or reference ranges have changed.Performed By: #### PGLU #### [facility] [address] [place] [address] AW Coag (PPP) [Time]14.4 dPjbkll08.3-14.9[facility] At PuebloComment on above:Result Comment: Effective 11/26/18 Please note methodology and/or reference ranges have changed.Performed By: #### PGLU #### [facility] [address] [place] [address] Wechp Cultureon [id number] identified Cx Nom (U)No growth 24 hoursBarney Children's Medical Center, KYORDER#: [id number] ORDERED BY: JOSE DAVID DAMIAN SOURCE: Urine Clean Catch COLLECTED: 04/07/19 18:30 ANTIBIOTICS AT JIMENA.: RECEIVED : 04/07/19 21:27[facility]- [place], KYBILIRUBIN TOTAL DIRECT & INDIRECTon 04-08-2019 Bilirubin Ql (U)2.7 mg/dLHigh0.2 - 0.7 mg/dLBarney Children's Medical Center, KYBilirubin, Indirect2 mg/dLHigh0 - 0.6 mg/dLBarney Children's Medical Center, KYBilirubin.direct [Mass/Vol] 0.7 mg/dLHigh0 - 0.4 mg/dLBarney Children's Medical Center, KYInterpretation and review of laboratory resultsAbnormalBarney Children's Medical Center, KYBasi Metabolic Panel Reflex Mgon [id number] gap [Moles/Vol]9 mmol/LNormal9-15[facility] Comment on above:Performed By: #### A1C #### [facility] [address] [place] [address] Gfgoofo [Mass/Vol]8.0 mg/dLLow8.5-9.9[facility] Comment on above:Performed By: #### A1C #### [facility] [address] [place] [address] Evtbrtax [Moles/Vol]99 mmol/BApdehk12-781DielwColorado Mental Health Institute At PuebloComment on above:Performed By: #### A1C #### [facility] [address] [place] [address] RT4 [Moles/Vol]23 mmol/HXpdrgu28-16KkqrvColorado Mental Health [facility] Comment on above:Performed By: #### A1C #### [facility] [address] [place] [address] Xjhgeummch [Mass/Vol]1.77 mg/dLCritically high0.70-1.20[facility] At PuebloComment on above:Performed By: #### A1C #### [facility] [address] [place] [address] SXF/1.73 sq M predicted among blacks MDRD (S/P/Bld) [Vol rate/Area] 46.4 mL/min/{1.73_m2}Low>60[facility] At P[facility]bloComment on above:Result Comment: >60 mL/min/1.73m2 EGFR, calc. for ages 18 and older using the MDRD formula (not corrected for weight), is valid for stable renal function.Performed By: #### A1C #### [facility] [address] [place] [address] KXN/1.73 sq M.predicted MDRD (S/P/Bld) [Vol rate/Area]38.4 mL/min/{1.73_m2}Low>60[facility] At PuebloComment on above:Result Comment: >60 mL/min/1.73m2 EGFR, calc. for ages 18 and older using the MDRD formula (not corrected for weight), is valid for stable renal function.Performed By: #### A1C #### [facility] [address] [place] [address] Tmtudse [Mass/Vol]219 mg/dLCritically lztv94-44PxhodDenver SpringsComment on above:Performed By: #### A1C #### [facility] [address] [place] [address] Cpfbdzjet reflex Mg4.8 mEq/LNormal3.4-4.9[facility] At P[facility]bloComment on above:Performed By: #### A1C #### [facility] [address] [place] [address] Gxpfcy [Moles/Vol]131 mmol/WXos987-496SflitColorado Mental Health [facility] Comment on above:Performed By: #### A1C #### [facility] [address] [place] [address] Jacb nitrogen [Mass/Vol]18 mg/dLNormal8-23[facility] At PuebloComment on above:Performed By: #### A1C #### [facility] [address] [place] [address] Evico Metabolic Panel w/ Reflex to MGon [id number] gap [Moles/Vol]9 mmol/LMmiami valley hospitaly Health- [place], KYCalcium [Mass/Vol]8.0 mg/dLLow8.5 - 9.9 mg/dLWestern [facility]- [place], KYChloride [Moles/Vol]99 mmol/LMmiami valley hospitaly Health- [place], KYCO2 [Moles/Vol]23 mmol/LMmiami valley hospitaly Health- [place], KYCreatinine [Mass/Vol]1.77 mg/dLHigh0.7 - 1.2 mg/dLWestern [facility] Hospital- [place], KYGFR Klgzrvqp08.4Low>60[facility]- [place], [place] Comment on above:>60 mL/min/1.73m2 EGFR, calc. for ages 18 and older using the MDRD formula (not corrected for weight), is valid for stable renal function. GFR Non- Rnztisam98.4Low>60[facility]- [place], KYComment on above:>60 mL/min/1.73m2 EGFR, calc. for ages 18 and older using the MDRD formula (not corrected for weight), is valid for stable renal function. Glucose [Mass/Vol]219 mg/cAVjid18 - 99 mg/dLWestern [facility] Hospital- [place], KYPotassium [Moles/Vol]4.8 mmol/LMercy Health- [place], KYSodium [Moles/Vol]131 mmol/LLowBarney Children's Medical Center, KYUrea nitrogen [Mass/Vol]18 mg/dL8 - 23 mg/dLBarney Children's Medical Center, [place] Bilirubin Total, Direct, and Indirecton [id number] [Mass/Vol]2.7 mg/dL Critically high0.2-0.7[facility] At PuebloComment on above:Performed By: #### BMP #### [facility] [address] [place] [address] Slfifgpxb Indirect2.0 mg/dLCritically high0.0-0.6MDenver SpringsComment on above:Performed By: #### BMP #### [facility] [address] [place] [address] Gpmqestjt.direct [Mass/Vol]0.7 mg/dLCritically high0.0-0.4[facility] At P[facility]bloComment on above:Performed By: #### BMP #### [facility] [address] [place] [address] ZCF With Platelet and Differentialon [id number] (Bld) [#/Vol]0.1 10*3/uLNormal0.0-0.2MDenver SpringsComment on above: Performed By: #### BMP #### [facility] [address] [place] [address] Vgpnkrowy/100 WBC (Bld)0.7 %[facility] Comment on above:Performed By: #### BMP #### [facility] [address] [place] [address] Cbgkboqnbqe (Bld) [#/Vol]0.4 10*3/uLNormal0.0-0.7[facility] At P[facility]bloComment on above:Performed By: #### BMP #### [facility] [address] [place] [address] Ocofwvecpdq/100 WBC (Bld)3.5 %[facility] Comment on above:Performed By: #### BMP #### [facility] [address] [place] [address] Kmavqxvytwv distribution width (RBC) [Ratio]12.7 %Unpsvs54.5-14.5 [facility] At PuebloComment on above:Performed By: #### BMP #### [facility] [address] [place] [address] Harekyavug (Bld) [Volume fraction]34.0 %Low42.0-52.0[facility] At PuebloComment on above:Performed By: #### BMP #### [facility] [address] [place] [address] Wejblnqjna (Bld) [Mass/Vol]11.2 g/dLLow14.0-18.0[facility] At PuebloComment on above:Performed By: #### BMP #### [facility] [address] [place] [address] Ytzsrzktyvl (Bld) [#/Vol]1.6 10*3/uLNormal1.0-4.8[facility] At [facility]bloComment on above:Performed By: #### BMP #### [facility] [address] [place] [address] Xpsnaawsbfc/100 WBC (Bld)13.9 %NormalColorado Mental Health [facility] Comment on above:Performed By: #### BMP #### [facility] [address] [place] [address] TRD (RBC) [Entitic mass]30.8 xhWbtgfs44.0-31.3MDenver SpringsComment on above:Performed By: #### BMP #### [facility] [address] [place] [address] GQLA (RBC) [Mass/Vol]32.9 %Low33.0-37.0[facility] Comment on above:Performed By: #### BMP #### [facility] [address] [place] [address] WOV (RBC) [Entitic vol]93.7 hIOhrqov80.0-100.0[facility] At PuebloComment on above:Performed By: #### BMP #### [facility] [address] [place] [address] Hapqijvwy (Bld) [#/Vol]1.1 10*3/uLCritically high0.2-0.8[facility]bloComment on above:Performed By: #### BMP #### [facility] [address] [place] [address] Kggdbfsyi/100 WBC (Bld)9.6 %[facility] Comment on above:Performed By: #### BMP #### [facility] [address] [place] [address] Netdwcqblaa (Bld) [#/Vol]8.2 10*3/uLCritically high1.4-6.5[facility] At PuebloComment on above:Performed By: #### BMP #### [facility] [address] [place] [address] Zknryxvussp/100 WBC (Bld)72.3 %[facility] Comment on above:Performed By: #### BMP #### [facility] [address] [place] [address] Lgomysnna (Bld) [#/Vol]153 10*3/kCZpdcfh770-151UmfobColorado Mental Health Institute At PuebloComment on above:Performed By: #### BMP #### [facility] [address] [place] [address] PPU (Bld) [#/Vol]3.63 10*6/uLLow4.70-6.10[facility] At PuebloComment on above:Performed By: #### BMP #### [facility] [address] [place] [address] KDO (Bld) [#/Vol]11.4 10*3/uLCritically high4.8-10.8[facility] At PuebloComment on above:Performed By: #### BMP #### [facility] [address] [place] [address] ZNZ auto differentialon [id number] (Bld) [#/Vol]0.1 10*3/uL 0 - 0.2 K/uLMercy Health- [place], KYBasophils/100 WBC (Bld)0.7 %[facility]- [place], [place] Eosinophils (Bld) [#/Vol]0.4 10*3/uL0 - 0.7 K/uLSumma [facility]- [place], [place] Eosinophils/100 WBC (Bld)3.5 %[facility]- [place], KYErythrocyte distribution width (RBC) [Ratio]12.7 %11.5 - 14.5 %[facility]- [place], KYHematocrit (Bld) [Volume fraction]34.0 %Low42 - 52 %[facility]- [place], KYHemoglobin (Bld) [Mass/Vol]11.2 g/dLLow14 - 18 g/dLWestern Reserve Hospital- [place], KYInterpretation and review of laboratory resultsAbnormalGreene Memorial Hospital [place], KYLymphocytes (Bld) [#/Vol]1.6 10*3/uL1 - 4.8 K/uLSumma Health [facility]- [place], KYLymphocytes/100 WBC (Bld)13.9 %[facility] [place], KYMCH (RBC) [Entitic mass]30.8 pg27 - 31.3 [facility] [place], KYMCHC (RBC) [Mass/Vol] 32.9 %Low33 - 37 %[facility] [place], KYMCV (RBC) [Entitic vol]93.7 fL80 - 100 fL [facility] [place], KYMonocytes (Bld) [#/Vol]1.1 10*3/uLHigh0.2 - 0.8 K/uLSumma [facility]- [place], KYMonocytes/100 WBC (Bld)9.6 %[facility] [place], KYNeutrophils Absolute8.2 K/uLHigh1.4 - 6.5 K/uLSumma [facility]- [place], KYNeutrophils/100 WBC (Bld) 72.3 %[facility]- [place], KYPlatelets (Bld) [#/Vol]153 10*3/uL130 - 400 K/[facility], KYRBC (Bld) [#/Vol]3.63 10*6/uLLowWestern Reserve Hospital- [place], KYWBC (Bld) [#/Vol]11.4 10*3/uLHigh4.8 - 10.8 K/uLWestern Reserve Hospital- [place], KYCulture, Respiratoryon [id number], RespiratoryORDER#: [id number] ORDERED BY: SHANIKA JENNINGS SOURCE: Sputum Expectorated Mouth COLLECTED: 04/08/19 05:06 ANTIBIOTICS AT JIMENA.: RECEIVED : 04/08/19 05:06 Gram Stain Direct FINAL 04/08/19 08:03 Many WBC's Rare epithelial cells Few Budding yeast Culture, Respiratory FINAL 04/10/19 11:39 Usual respiratory rachel with Rare growth Yeast No further workupNormEstes Park Medical CenterComment on above:Performed By: #### A1C #### [facility] [address] [facility] [address] Wldthzj function panelon [id number] [Mass/Vol]2.8 g/dLLow3.5 - 4.6 g/dLBarney Children's Medical Center, KYALP [Catalytic activity/Vol]42 U/L35 - 104 U/L [facility], KYALT [Catalytic activity/Vol]28 U/L0 - 41 U/LMParkview Health [place], KYAST [Catalytic activity/Vol]17 U/L0 - 40 U/LMParkview Health [place], KYBilirubin Ql (U)2.0 mg/dLHigh0.2 - 0.7 mg/dLGre[facility] [place], KYBilirubin, Indirect1.4 mg/dLHigh0 - 0.6 mg/dLBarney Children's Medical Center, KYBilirubin.direct [Mass/Vol]0.6 mg/dL High0 - 0.4 mg/dLGreene [facility] Hospital [place], KYProtein [Mass/Vol]5.4 g/dLLow6.3 - 8 g/dL [facility], KYInfluenza A and Bon [id number] A by PCRNegative NormalColorado Mental Health Institute At PuebloComment on above:Result Comment: Effective 01/07/19 Please note methodology and/or reference ranges have changed.Performed By: #### BMP #### [facility] [address] [facility] [address] Pwmpbtcqr B by PCRNegativePagosa Springs Medical CenterComment on above:Result Comment: Effective 01/07/19 Please note methodology and/or reference ranges have changed.Performed By: #### BMP #### [facility] [address] [place] [address] Fnaqbvo, Sepsison 91-74-7077Xseggso, Sepsis2.1 mmol/LCritically high 0.5-1.9[facility] Institute At PuebloComment on above:Performed By: #### A1C #### [facility] [address] [place] [address] Pczhlwfoqduaom and review of laboratory resultsAbPike Community Hospital, KYLactic Acid, Sepsis2.1 mmol/LHigh0.5 - 1.9 mmol/LMercy Health- [place], [place] Lactate, Sepsis4.0 mmol/LCritically high0.5-1.9[facility] Comment on above:Order Comment: CALL Ruiz LC2W tel. [phone],Lactic Acid results called to and read back by Shaq Huntley, 04/08/2019 01:55,by Coleman By: #### BMP #### [facility] [address] [facility] [place] [address] Czfjmqikysdicn and review of laboratory resultsAbMercy Health [facility]- [place], KYLactic Acid, Sepsis4.0 mmol/LCritically high0.5 - 1.9 mmol/LMercy Health- [place], KYCALL Ruiz LC2W tel. [phone], Lactic Acid results called to and read back by Shaq Castillo RN, 04/08/2019 01:55, by [facility], KYLactic Acidon [id number] [Moles/Vol]2.7 mmol/LCritically high0.5-2.2Mmiami valley hospitaly [facility]- [place], KYComment on above:Performed By: #### TS3C #### [facility] [address] [place] [address] Zjwhccc [Moles/Vol]1.6 mmol/LNormal0.5-2.2MDenver SpringsComment on above:Performed By: #### A1C #### [facility] [address] [place] [address] Bviyzx acid, plasmaon [id number] [Moles/Vol]1.6 mmol/L0.5 - 2.2 mmol/LMCleveland Clinic [facility]- [place], KYLiver Panelon [id number] Indirect1.4 mg/dLCritically high0.0-0.6MDenver SpringsComment on above: Performed By: #### A1C #### [facility] [address] [place] [address] Csxptgo [Mass/Vol]2.8 g/dLLow3.5-4.6MDenver Springs Comment on above:Performed By: #### A1C #### [facility] [address] [place] [address] XWG [Catalytic activity/Vol]42 U/HRcfyzj19-157KpsprColorado Mental Health Institute At PuebloComment on above:Performed By: #### A1C #### [facility] [address] [place] [address] FYW [Catalytic activity/Vol]28 U/LNormal0-41[facility] Institute At PuebloComment on above:Performed By: #### A1C #### [facility] [address] [place] [address] VWP [Catalytic activity/Vol]17 U/LNormal0-40[facility] Institute At PuebloComment on above:Performed By: #### A1C #### [facility] [address] [place] [address] Qwbuclazw [Mass/Vol]2.0 mg/dLCritically high0.2-0.7[facility] At PuebloComment on above:Performed By: #### A1C #### [facility] [address] [place] [address] Pugrjpnyc.direct [Mass/Vol]0.6 mg/dLCritically high0.0-0.4[facility] Institute At PuebloComment on above:Performed By: #### A1C #### [facility] [address] [place] [address] Rekmmcz [Mass/Vol]5.4 g/dLLow6.3-8.0[facility] Comment on above:Performed By: #### A1C #### [facility] [address] [place] [address] LZM LUMBAR SPINE W WO CONTRASTon [id number], Chpo Incoming Radiant Results From OnSwipe/Diffbot - 04/08/2019 1:24 PM EST Patient : [...] bulge, severe bilateral facet osteoarthropathy, severe thecal sacstenosis measuring 0.65 cm superior to the laminectomy site with underlying crowding/compression ofcauda equina nerve roots. Moderately severe left and [...] the laminectomy site but without a drainable fluidcollection or abscess at this time. There is [...] sarcoidosis, hematopoietic hyperplasia, leukemia, lymphoma or metastatic disease.[facility], [facility]. Postcontrast enhancement involving the laminectomy site and [...] sarcoidosis, hematopoietic hyperplasia, leukemia, lymphoma or metastatic disease.[place] Patient : 1950 Age: 68 years Gender: [...] of the superficial subcutaneous fatty tissues also identified.[facility], HIOtheron [id number] and review of laboratory resultsAbPike Community Hospital, HIInterpretation and review of laboratory resultsAbnoBrecksville VA / [facility], KYPOCT Glucoseon [id number] [Mass/Vol]294 mg/dLCritically jcro80-448GyvmsColorado Mental Health Institute At PuebloComment on above:Performed By: #### TS3C #### [facility] [address] [place] [address] HWZ Performed [facility]red Hospital - DenverComment on above:Performed By: #### TS3C #### [facility] [address] [place] [address] Oumxsej [Mass/Vol]294 mg/tDOlfm28 - 115 mg/dlBarney Children's Medical Center, [place] Performed onCarson City, KYGlucose [Mass/Vol]301 mg/dLCritically eaht30-753CjkosColorado Mental Health Institute At PuebloComment on above:Performed By: #### TS3C #### [facility] [address] [place] [address] MAW Performed [facility] Hospital - DenverComment on above:Performed By: #### TS3C #### [facility] [address] [place] [address] Kggdwuf [Mass/Vol]301 mg/bHXapj46 - 115 mg/dlFort [place] Interpretation and review of laboratory resultsAbClar[place], [place] Performed onK[facility], KYGlucose [Mass/Vol]210 mg/dLCritically orcc96-230VgyjnColorado Mental Health Institute At PuebloComment on above:Performed By: #### A1C #### [facility] [address] [place] [address] IAZ Performed [facility] - DenverComment on above:Performed By: #### A1C #### [facility] [address] [place] [address] Jcbjxfh [Mass/Vol]210 mg/cHPdpd59 - 115 mg/dlFort [place], [place] Interpretation and review of laboratory resultsAbClar[place], [place] Performed onKettering [facility], KYGlucose [Mass/Vol]214 mg/dLCritically wqde04-038GvtwpColorado Mental Health Institute At PuebloComment on above:Performed By: #### A1C #### [facility] [address] [place] [address] LRI Performed [facility] - DenverComment on above:Performed By: #### A1C #### [facility] [address] [place] [address] Yaqnnsj [Mass/Vol]214 mg/zUJvyi40 - 115 mg/dlFort [place], [place] Interpretation and review of laboratory resultsAbClar[place], [place] Performed [facility], KYPOCT Venouson 15-38-3812Sfefacojpa [Mass/Vol]1.7 mg/dLCritically high0.8-1.3MDenver SpringsComment on above:Performed By: #### BMP #### [facility] [address] [place] [address] PJY/1.73 sq M predicted among blacks MDRD (S/P/Bld) [Vol rate/Area] 49 mL/min/{1.73_m2}Abnormal>60[facility] Institute At PuebloComment on above: Result Comment: >60 mL/min/1.73m2 EGFR, calc. for ages 18 and older using the MDRD formula (not corrected for weight), is valid for stable renal function.Performed By: #### BMP #### [facility] [address] [place] [address] BHJ/1.73 sq M.predicted MDRD (S/P/Bld) [Vol rate/Area]40 mL/min/{1.73_m2}Abnormal>60[facility] Institute At PuebloComment on above:Result Comment: >60 mL/min/1.73m2 EGFR, calc. for ages 18 and older using the MDRD formula (not corrected for weight), is valid for stable renal function.Performed By: #### BMP #### [facility] [address] [place] [address] Cjyrgyy [Mass/Vol]233 mg/dLCritically ctqv57-451LayooColorado Mental Health Institute At PuebloComment on above:Performed By: #### BMP #### [facility] [address] [place] [address] Mmdslgcydv (Bld) [Volume fraction]33 %Yaf64-45OwbozColorado Mental Health Institute At PuebloComment on above:Performed By: #### BMP #### [facility] [address] [place] [address] Kenrovzdyj (Bld) [Mass/Vol]11.2 g/dLLow13.5-17.5[facility] Institute At PuebloComment on above:Performed By: #### BMP #### [facility] [address] [place] [address] Bacdcz saturation in Blood42 %NormalNot EstablMDenver SpringsComment on above:Performed By: #### BMP #### [facility] [address] [place] [address] IKV Calciuim Ionized1.05 mmol/LLow1.12-1.32[facility] Institute At PuebloComment on above:Performed By: #### BMP #### [facility] [address] [place] [address] ISF Cl101 mEq/ETwhfxt14-683NixxrColorado Mental Health Institute At PuebloComment on above:Performed By: #### BMP #### [facility] [address] [place] [address] TSB BLJ208.000NoBanner Fort Collins Medical CenterComment on above: Performed By: #### BMP #### [facility] [address] [place] [address] UBU K4.4 mEq/LNormal3.5-5.1MDenver SpringsComment on above:Performed By: #### BMP #### [facility] [address] [place] [address] BDR Lactic Acid3.67 mmol/LCritically high0.40-2.00[facility] Institute At PuebloComment on above:Performed By: #### BMP #### [facility] [address] [place] [address] WVR Na133 mEq/VJts695-454MiebqColorado Mental Health Institute At PuebloComment on above:Performed By: #### BMP #### [facility] [address] [place] [address] ZCK Performed onSEE BELOWPagosa Springs Medical CenterComment on above:Result Comment: Performed on POC Sample Type: Venous Oxygen Delivery System: CannulaPerformed By: #### BMP #### [facility] [address] [place] [address] CCU Sample TypeVENNoBanner Fort Collins Medical CenterComment on above:Performed By: #### BMP #### [facility] [address] [place] [address] ASA Venous Base Thqejc-0Bps-1-3MDenver SpringsComment on above:Performed By: #### BMP #### [facility] [address] [place] [address] JHK Venous QFI743.7 mmol/LLow23.0-29.0[facility] Comment on above:Performed By: #### BMP #### [facility] [address] [place] [address] ETV Venous XBG075.9 mm EnYvhvzb79.0-50.0[facility] Institute At PuebloComment on above:Performed By: #### BMP #### [facility] [address] [place] [address] XUZ Venous pH7.454Irx1.350-7.45[facility] Institute At PuebloComment on above:Performed By: #### BMP #### [facility] [address] [place] [address] CED Venous PO227 mm HgNormalNot [facility] Comment on above:Performed By: #### BMP #### [facility] [address] [place] [address] ZPQ Venous Total CO222 mmol/LNormalNot [facility]lands Behavioral Health SystemComment on above:Performed By: #### BMP #### [facility] [address] [place] [address] Hiodzpnkhoj Timeon 36-72-5346MLM Coag (PPP) [Relative time]1.2 {INR} NormalColorado Mental Health Institute At PuebloComment on above:Result Comment: Warfarin Therapy INR Therapeutic: 2.0-3.0 With Mechanical Valve: >2.5 Low-intensity Therapeutic Range: 1.5-2.0 Mod-intensity Therapeutic Range: 2.0-3.0 High-intensity Therapeutic Range: 2.5-3.5 HIgh-intensity Therapeutic Range: 3.0-4.0 Common Critical/Alarm Value: 5.0 Common Upper Limit Reported: 10.0 Effective 11/26/2018: Please note methodology and/or reference ranges have changed.Performed By: #### A1C #### [facility] [address] [place] [address] QY Coag (PPP) [Time]15.4 sCritically high12.3-14.9[facility] Institute At PuebloComment on above:Result Comment: Effective 11/26/18 Please note methodology and/or reference ranges have changed.Performed By: #### A1C #### [facility] [address] [place] [address] Jdkphlo-INRon 32-10-9403ROX Coag (PPP) [Relative time]1.2 {INR}[place], KYComeaton rapids medical center on above:Warfarin Therapy INR Therapeutic: 2.0-3.0 With Mechanical Valve: >2.5 Low-intensity Therapeutic Range: 1.5-2.0 Mod-intensity Therapeutic Range: 2.0-3.0 High-intensity Therapeutic Range: 2.5-3.5 HIgh-intensity Therapeutic Range: 3.0-4.0 Common Critical/Alarm Value: 5.0 Common Upper Limit Reported: 10.0 Effective 11/26/2018: Please note methodology and/or reference ranges have changed. PT Coag (PPP) [Time]15.4 [place], KYComment on above:Effective 11/26/18 Please note methodology and/or reference ranges have changed. XR CHEST PORTABLEon [id number] : 1950 Age: 68 years Gender: Male Order Date: 04/07/2019 6:30 PM. Exam: XR CHEST PORTABLE Number of Views: 1 Indication: Fever Comparison: None. Findings: Cardiomediastinal silhouette is within normal limits. Lungs are clear without evidence of infiltrate/pneumonia, pneumothorax or pleural effusionBarney Children's Medical Center, Woody Regan Incoming Radiant Results From Tactilizee/Pacs - 04/08/2019 7:15 AM EST Patient : 1950 Age: 68 years Gender: Male Order Date: 04/07/2019 6:30 PM. Exam: XR CHEST PORTABLE Number of Views: 1 Indication: Fever Comparison: None. Findings: Cardiomediastinal silhouette is within normal limits. Lungs are clear without evidence ofinfiltrate/pneumonia, pneumothorax or pleural effusion IMPRESSION: Impression: No radiographic evidence of acute cardiopulmonary disease [place], KYImpression: No radiographic evidence of acute cardiopulmonary diseaseEast Liverpool City Hospital [id number] Coag (Bld) [Time]36.7 sMProtestant Deaconess Hospital, BELLEComment on above:Effective 12/03/2018: Please note methodology and/or reference ranges have changed. aPTT - Heparin Therapeutic Range: 74.0 - 106 seconds Brain Natriuretic Peptideon 70-46-0123Fupqqjlyuco peptide B (Bld) [Mass/Vol]597 pg/mLBarney Children's Medical Center, BELLEComment on above:NT-pro BNP ACUTE Interpretive Guidelines: Age Cutoff for [...] patients. Heart Journal. 2006;27:330-337 CBC Auto Differentialon 76-04-0443Ssswyzyau (Bld) [#/Vol]0.1 10*3/uL0 - 0.2 K/uL [facility], KYBasophils/100 WBC (Bld)1.0 %[facility], KYEosinophils (Bld) [#/Vol]0.4 10*3/uL0 - 0.7 K/uLBarney Children's Medical Center, KYEosinophils/100 WBC (Bld)3.1 %[facility], KYErythrocyte distribution width (RBC) [Ratio]12.9 % 11.5 - 14.5 %[facility], KYHematocrit (Bld) [Volume fraction]39.9 %Low42 - 52 %[facility], KYHemoglobin (Bld) [Mass/Vol]13.5 g/dLLow14 - 18 g/dLBarney Children's Medical Center, KYInterpretation and review of laboratory resultsAbnormalBarney Children's Medical Center, KYLymphocytes (Bld) [#/Vol]1.6 10*3/uL1 - 4.8 K/[facility], KYLymphocytes/100 WBC (Bld)13.4 %[facility], HIMCH (RBC) [Entitic mass] 30.7 pg27 - 31.3 pgBarney Children's Medical Center, HIMCHC (RBC) [Mass/Vol]33.8 %33 - 37 %[facility], HIMCV (RBC) [Entitic vol]90.7 fL80 - 100 fLBarney Children's Medical Center, [place] Monocytes (Bld) [#/Vol]0.9 10*3/uLHigh0.2 - 0.8 K/[facility], [place] Monocytes/100 WBC (Bld)7.9 %[facility], KYNeutrophils Absolute8.9 K/uLHigh 1.4 - 6.5 K/[facility], KYNeutrophils/100 WBC (Bld)74.6 %[facility], KYPlatelets (Bld) [#/Vol]178 10*3/uL130 - 400 K/[facility], KYRBC (Bld) [#/Vol]4.40 10*6/uLLowBarney Children's Medical Center, KYWBC (Bld) [#/Vol]11.9 10*3/uL High4.8 - 10.8 K/[facility], HICBC With Platelet and Differentialon 07-93-6593Zdreqsbgm (Bld) [#/Vol]0.1 10*3/uLNormal0.0-0.2MDenver SpringsComment on above:Performed By: #### CBCWD #### [facility] [address] [place] [address] Lpmpsdtkl/100 WBC (Bld)1.0 %NormalColorado Mental Health Institute At [facility]blo Comment on above:Performed By: #### CBCWD #### [facility] [address] [place] [address] Peqftxizwwx (Bld) [#/Vol]0.4 10*3/uLNormal0.0-0.7[facility] Institute At PuebloComment on above:Performed By: #### CBCWD #### [facility] [address] [place] [address] Xclisqkxjdm/100 WBC (Bld)3.1 %[facility] Comment on above:Performed By: #### CBCWD #### [facility] [address] [place] [address] Qgjlzrbarxj distribution width (RBC) [Ratio]12.9 %Atqbfg98.5-14.5 [facility] Institute At PuebloComment on above:Performed By: #### CBCWD #### [facility] [address] [place] [address] Wjyyrnggfy (Bld) [Volume fraction]39.9 %Low42.0-52.0[facility] Institute At PuebloComment on above:Performed By: #### CBCWD #### [facility] [address] [place] [address] Rzngvcrldr (Bld) [Mass/Vol]13.5 g/dLLow14.0-18.0[facility] Institute At PuebloComment on above:Performed By: #### CBCWD #### [facility] [address] [place] [address] Holrwwzhbqm (Bld) [#/Vol]1.6 10*3/uLNormal1.0-4.8[facility] At PuebloComment on above:Performed By: #### CBCWD #### [facility] [address] [place] [address] Oqrfikefwkc/100 WBC (Bld)13.4 %[facility] Comment on above:Performed By: #### CBCWD #### [facility] [address] [place] [address] HEB (RBC) [Entitic mass]30.7 shJbgwrx07.0-31.3MDenver SpringsComment on above:Performed By: #### CBCWD #### [facility] [address] [place] [address] GJLM (RBC) [Mass/Vol]33.8 %Ecwtxz07.0-37.0[facility] Institute At PuebloComment on above:Performed By: #### CBCWD #### [facility] [address] [place] [address] BMS (RBC) [Entitic vol]90.7 eFXsatiw34.0-100.0[facility] Institute At PuebloComment on above:Performed By: #### CBCWD #### [facility] [address] [place] [address] Gpdfwbnbd (Bld) [#/Vol]0.9 10*3/uLCritically high0.2-0.8[facility] PuebloComment on above:Performed By: #### CBCWD #### [facility] [address] [place] [address] Xkceqffez/100 WBC (Bld)7.9 %[facility] Comment on above:Performed By: #### CBCWD #### [facility] [address] [place] [address] Dlgvlwtifml (Bld) [#/Vol]8.9 10*3/uLCritically high1.4-6.5[facility] At PuebloComment on above:Performed By: #### CBCWD #### [facility] [address] [place] [address] Bcjqytbizgi/100 WBC (Bld)74.6 %[facility] Comment on above:Performed By: #### CBCWD #### [facility] [address] [place] [address] Fdsgffycv (Bld) [#/Vol]178 10*3/zSXajlmw060-037QjbhyColorado Mental Health Institute At PuebloComment on above:Performed By: #### CBCWD #### [facility] [address] [place] [address] MRH (Bld) [#/Vol]4.40 10*6/uLLow4.70-6.10[facility] At PuebloComment on above:Performed By: #### CBCWD #### [facility] [address] [place] [address] PYT (Bld) [#/Vol]11.9 10*3/uLCritically high4.8-10.8[facility] At PuebloComment on above:Performed By: #### CBCWD #### [facility] [address] [place] [address] WDrb 56-30-4572Kyufe CK255 U/LHigh0 - 190 U/LMProtestant Deaconess Hospital, [place] CKMB & RELATIVE PERCENTon 71-47-4397CO.MB [Mass/Vol]0.7 %0 - 3.5 %[facility], KYCK.MB [Mass/Vol]1.8 ng/mL0 - 6.7 ng/mLBarney Children's Medical Center, KYCKMB and Relative Percenton 29-38-2813CA.MB [Mass/Vol]0.7 %Normal0.0-3.5[facility] Institute At PuebloComment on above:Performed By: #### BMP #### [facility] [address] [place] [address] MJ.MB [Mass/Vol]1.8 ng/mLNormal0.0-6.7[facility] Comment on above:Performed By: #### BMP #### [facility] [address] [place] [address] Fwaoftvqucpwp Metabolic Panelon 31-69-4398Rxtggjo [Mass/Vol]3.7 g/dL Normal3.5-4.6MDenver SpringsComment on above:Performed By: #### PT #### [facility] [address] [place] [address] CJY [Catalytic activity/Vol]52 U/IQowqor38-210RszibColorado Mental Health Institute At PuebloComment on above:Performed By: #### PT #### [facility] [address] [place] [address] DNY [Catalytic activity/Vol]41 U/LNormal0-41[facility] Institute At PuebloComment on above:Performed By: #### PT #### [facility] [address] [place] [address] Cyqle gap [Moles/Vol]12 mmol/LNormal9-15[facility] Institute At PuebloComment on above:Performed By: #### PT #### [facility] [address] [place] [address] SMI [Catalytic activity/Vol]27 U/LNormal0-40[facility] At PuebloComment on above:Performed By: #### PT #### [facility] [address] [place] [address] Mhuaehrph [Mass/Vol]2.6 mg/dLCritically high0.2-0.7[facility] Institute At PuebloComment on above:Performed By: #### PT #### [facility] [address] [place] [address] Csbggkq [Mass/Vol]8.9 mg/dLNormal8.5-9.9[facility] PuebloComment on above:Performed By: #### PT #### [facility] [address] [place] [address] Gxlcvvur [Moles/Vol]93 mmol/XLoj63-669YqslpColorado Mental Health [facility] Comment on above:Performed By: #### PT #### [facility] [address] [place] [address] PC4 [Moles/Vol]23 mmol/ZPjthvm33-66SlakiColorado Mental Health [facility] Comment on above:Performed By: #### PT #### [facility] [address] [place] [address] Wkutzcoquv [Mass/Vol]1.97 mg/dLCritically high0.70-1.20[facility] At PuebloComment on above:Performed By: #### PT #### [facility] [address] [place] [address] DWR/1.73 sq M predicted among blacks MDRD (S/P/Bld) [Vol rate/Area] 41.0 mL/min/{1.73_m2}Low>60[facility] At PuebloComment on above:Result Comment: >60 mL/min/1.73m2 EGFR, calc. for ages 18 and older using the MDRD formula (not corrected for weight), is valid for stable renal function.Performed By: #### PT #### [facility] [address] [place] [address] BSW/1.73 sq M.predicted MDRD (S/P/Bld) [Vol rate/Area]33.9 mL/min/{1.73_m2}Low>60[facility] At PuebloComment on above:Result Comment: >60 mL/min/1.73m2 EGFR, calc. for ages 18 and older using the MDRD formula (not corrected for weight), is valid for stable renal function.Performed By: #### PT #### [facility] [address] [place] [address] Doetdixa (S) [Mass/Vol]3.0 g/dLNormal2.3-3.5[facility] Institute At PuebloComment on above:Performed By: #### PT #### [facility] [address] [place] [address] Ahewmjp [Mass/Vol]281 mg/dLCritically sbfc76-33JhgedDenver SpringsComment on above:Performed By: #### PT #### [facility] [address] [place] [address] Ljhdwhoxt [Moles/Vol]5.9 mmol/LCritically high3.4-4.9[facility] Institute At PuebloComment on above:Performed By: #### PT #### [facility] [address] [place] [address] Zefparc [Mass/Vol]6.7 g/dLNormal6.3-8.0[facility] Comment on above:Performed By: #### PT #### [facility] [address] [place] [address] Qrtxaz [Moles/Vol]128 mmol/EHmh927-708KvimjColorado Mental Health Institute [facility] Comment on above:Performed By: #### PT #### [facility] [address] [place] [address] Woqg nitrogen [Mass/Vol]20 mg/dLNormal8-23[facility] Institute At PuebloComment on above:Performed By: #### PT #### [facility] [address] [place] [address] Dknljdt [Mass/Vol]3.7 g/dL3.5 - 4.6 g/dLWestern Reserve Hospital- [place], KYALP [Catalytic activity/Vol]52 U/L35 - 104 U/LMCleveland Clinic [facility]- [place], KYALT [Catalytic activity/Vol]41 U/L0 - 41 U/LMCleveland Clinic [facility]- [place], KYAnion gap [Moles/Vol]12 mmol/L [facility] [place], KYAST [Catalytic activity/Vol]27 U/L0 - 40 U/LMCleveland Clinic [facility]- [place], KYBilirubin Ql (U)2.6 mg/dLHigh0.2 - 0.7 mg/dLWestern [facility] Hospital- [place], KYCalcium [Mass/Vol]8.9 mg/dL8.5 - 9.9 mg/dLWestern [facility]- [place], KYChloride [Moles/Vol]93 mmol/LLowWestern Reserve Hospital- [place], KYCO2 [Moles/Vol]23 mmol/LMCleveland Clinic [facility]- [place], [place] Creatinine [Mass/Vol]1.97 mg/dLHigh0.7 - 1.2 mg/dLWestern Reserve Hospital- [place], KYGFR Kkgcbelu46Ewc>60[facility]- [place], KYComment on above:>60 mL/min/1.73m2 EGFR, calc. for ages 18 and older using the MDRD formula (not corrected for weight), is valid for stable renal function. GFR Non- Ugmhuyxs45.9Low>60[facility]- [place], KYComment on above:>60 mL/min/1.73m2 EGFR, calc. for ages 18 and older using the MDRD formula (not corrected for weight), is valid for stable renal function. Globulin (S) [Mass/Vol]3 g/dL2.3 - 3.5 g/dLWestern Reserve Hospital- [place], KYGlucose [Mass/Vol]281 mg/qCThcc53 - 99 mg/dLBarney Children's [facility], KYPotassium [Moles/Vol]5.9 mmol/LHighBarney Children's Medical Center, KYProtein [Mass/Vol]6.7 g/dL6.3 - 8 g/dLBarney Children's Medical Center, KYSodium [Moles/Vol]128 mmol/LLowBarney Children's Medical Center, KYUrea nitrogen [Mass/Vol]20 mg/dL8 - 23 mg/dLBarney Children's Medical Center, KYCreatine Kinaseon 07-02-4051IJ [Catalytic activity/Vol]255 U/LCritically high0-190[facility] At PuebloComment on above:Performed By: #### PT #### [facility] [address] [place] [address] Mmylaml, Blood 2on 98-64-1484Cqjeibi, Blood 2ORDER#: [id number] ORDERED BY: JOSE DAVID DAMIAN SOURCE: Blood COLLECTED: 04/07/19 18:56 ANTIBIOTICS AT JIMENA.: RECEIVED : 04/07/19 19:04 Culture, Blood 2 FINAL 04/12/19 20:15 No growth after 5 days of incubation.Pagosa Springs Medical CenterComment on above:Performed By: #### TS3C #### [facility] [address] [place] [address] Uzkzcxo, Urineon 82-80-3294Ttfuuia, UrineORDER#: [id number] ORDERED BY: JOSE DAVID DAMIAN SOURCE: Urine Clean Catch COLLECTED: 04/07/19 18:30 ANTIBIOTICS AT JIMENA.: RECEIVED : 04/07/19 21:27 Culture, Urine FINAL 04/09/19 10:13 No growth 24 hoursNormEstes Park Medical CenterComment on above:Performed By: #### PGLU #### [facility] [address] [place] [address] Biltjij, Sepsison 25-99-8440Sqgozqs, Sepsis3.4 mmol/LCritically high 0.5-1.9[facility] Institute At PuebloComment on above:Order Comment: CALL Ruiz LCED tel. [phone],Lactic acid result called to and read back by ROSA Damian, 04/07/2019 19:56,by Mariahformed By: #### BMP #### [facility] [address] [place] [address] Xzuyhkbeiuqdix and review of laboratory resultsAbPike Community Hospital, KYLactic Acid, Sepsis3.4 mmol/LCritically high0.5 - 1.9 mmol/[facility] [place], KYCALL Ruiz LCED tel. [phone], Lactic acid result called to and read back by ROSA Damian, 04/07/2019 19:56, by [facility], KYLactic Acidon 40-35-1834Zrnvlef [Moles/Vol]2.9 mmol/LCritically high0.5-2.2MDenver SpringsComment on above:Performed By: #### BMP #### [facility] [address] [facility] [address] Zskvru Acid, Plasmaon 73-32-4145Purbytuydwwubv and review of laboratory resultsAbPike Community Hospital, KYLactate [Moles/Vol]2.9 mmol/LHigh 0.5 - 2.2 mmol/LMProtestant Deaconess Hospital, KYLipaseon 72-77-3184Qetcrb [Catalytic activity/Vol]25 U/DVkkurr84-92IydfbColorado Mental Health Institute At PuebloComment on above: Performed By: #### PT #### [facility] [address] [facility] [address] Geqfad [Catalytic activity/Vol]25 U/L12 - 95 U/[facility], [place] MRI LUMBAR SPINE W WO CONTRASTon 28-41-9197KRW LUMBAR SPINE W WO CONTRASTPatient : 1950 Age: 68 years Gender: Male [...] exiting right L2 spinal nerve root. No alejanrdo spinal canal stenosis. L3-L4: Large circumferential disc bulge, severe bilateral facet osteoarthropathy, severe thecal sacstenosis measuring 0.65 cm superior to the laminectomy site with underlying crowding/compression ofcauda equina nerve roots. Moderately severe left and [...] the laminectomy site but without a drainable fluidcollection or abscess at this time. There is [...] Signed by: Fabio Bautista MD 04/08/19 Final resultNoBanner Fort Collins Medical CenterMagnesiumon 18-10-3353Pynxsfjts [Mass/Vol]1.7 mg/dLNormal1.7-2.4[facility] Institute At PuebloComment on above: Performed By: #### PT #### [facility] [address] [place] [address] Yyxapowqv [Mass/Vol]1.7 mg/dL1.7 - 2.4 mg/dLBarney Children's Medical Center, [place] Microscopic Urinalysison 90-08-4126Khxdzekl, UANegative/HPFBarney Children's Medical Center, [place] Epi Cells0-2MProtestant Deaconess Hospital, KYHyaline Casts, UA5-10[facility], KYRBC (U) [#/Vol]0-2MProtestant Deaconess Hospital, KYWBC, UA0-2MercSt. Mary's Medical Center, KYOtheron 04-07-2019 Interpretation and review of laboratory resultsAbnoBrecksville VA / Crille Hospital, [place] Interpretation and review of laboratory resultsAbPike Community Hospital, KYPOCT Venouson 15-52-0869Stmd Excess, Romero-6LowBarney Children's Medical Center, KYCalcium [Mass/Vol] 1.05 mmol/LLow1.12 - 1.32 mmol/LMProtestant Deaconess Hospital, KYChloride [Moles/Vol]101 mmol/LMProtestant Deaconess Hospital, KYCreatinine [Mass/Vol]1.7 mg/dLHigh0.8 - 1.3 mg/dLBarney Children's Medical Center, JCKFS515AkljmBarney Children's Medical Center, KYGFR Kxbbukuv03Jqydleoc>60[facility], HIComment on above:>60 mL/min/1.73m2 EGFR, calc. for ages 18 and older using the MDRD formula (not corrected for weight), is valid for stable renal function. GFR Non- Sjzqezlm97Fipfnkls>60[facility], HIComment on above:>60 mL/min/1.73m2 EGFR, calc. for ages 18 and older using the MDRD formula (not corrected for weight), is valid for stable renal function. Glucose [Mass/Vol]233 mg/oXYkay68 - 115 mg/dlBarney Children's Medical Center, KYHCO3, Venous 20.7 mmol/LLow23 - 29 mmol/LMProtestant Deaconess Hospital, KYHematocrit (Bld) [Volume fraction]33 %Low41 - 53 %[facility], HIHemoglobin (Bld) [Mass/Vol]11.2 g/dLKnox Community Hospital, HIInterpretation and review of laboratory results AbnormalBarney Children's Medical Center, HILactate [Moles/Vol]3.67 mmol/LHigh0.4 - 2 mmol/L [facility], HIOxygen saturation in Blood42 %Not EstablishedBarney Children's Medical Center, HIpCO2, Ven43.9[facility], KYPerformed onSEE BELOWBarney Children's Medical Center, [place] Comment on above:Performed on POC Sample Type: Venous Oxygen Delivery System: Cannula pH, Ven7.282LowBarney Children's Medical Center, KYpO2, Scs83Pzm Established mm HgBarney Children's Medical Center, HIPotassium [Moles/Vol]4.4 mmol/LMProtestant Deaconess Hospital, KYSample TypeVENBarney Children's Medical Center, HISodium [Moles/Vol]133 mmol/LLowBarney Children's Medical Center, KYTC02 (Calc), Ven22 mmol/LNot [facility], HIPartial Thromboplastin Timeon 41-42-4488hXRS Coag (Bld) [Time]36.7 fBxnovc31.4-36.8[facility] Institute At PuebloComment on above:Result Comment: Effective 12/03/2018: Please note methodology and/or reference ranges have changed. aPTT - Heparin Therapeutic Range: 74.0 - 106 secondsPerformed By: #### PT #### [facility] [address] [facility] [address] Gcaviyvyslfwdbi 46-82-6432Ftdrshehepqhp8.55 ng/mLCritically high 0.00-0.15[facility] At PuebloComment on above:Result Comment: Reference Range: Adults: <=0.15 ng/mL Children: 0-18 [...] thyroid carcinoma, small cell carcinoma, and renal failure.Performed By: #### PT #### [facility] [address] [facility] [address] Vrrrmnbenfwtf8.55 ng/mLHigh0 - 0.15 ng/mLBarney Children's Medical Center, HIComment on above:Reference Range: Adults: <=0.15 ng/mL Children: 0-18 hours [...] cell carcinoma, and renal failure. Prothrombin Timeon 21-60-3607WHC Coag (PPP) [Relative time]1.2 {INR}NormalColorado Mental Health Institute At PuebloComment on above:Result Comment: Warfarin Therapy INR Therapeutic: 2.0-3.0 With Mechanical Valve: >2.5 Low-intensity Therapeutic Range: 1.5-2.0 Mod-intensity Therapeutic Range: 2.0-3.0 High-intensity Therapeutic Range: 2.5-3.5 HIgh-intensity Therapeutic Range: 3.0-4.0 Common Critical/Alarm Value: 5.0 Common Upper Limit Reported: 10.0 Effective 11/26/2018: Please note methodology and/or reference ranges have changed.Performed By: #### PT #### [facility] [address] [facility] [address] PP Coag (PPP) [Time]15.7 sCritically high12.3-14.9[facility] At PuebloComment on above:Result Comment: Effective 11/26/18 Please note methodology and/or reference ranges have changed.Performed By: #### PT #### [facility] [address] [facility] [address] Ydouzln-INRon 32-66-3598SQR Coag (PPP) [Relative time]1.2 {INR}[facility], HIComment on above:Warfarin Therapy INR Therapeutic: 2.0-3.0 With Mechanical Valve: >2.5 Low-intensity Therapeutic Range: 1.5-2.0 Mod-intensity Therapeutic Range: 2.0-3.0 High-intensity Therapeutic Range: 2.5-3.5 HIgh-intensity Therapeutic Range: 3.0-4.0 Common Critical/Alarm Value: 5.0 Common Upper Limit Reported: 10.0 Effective 11/26/2018: Please note methodology and/or reference ranges have changed. Interpretation and review of laboratory resultsAbnoBrecksville VA / [facility]ille [facility], HIPT Coag (PPP) [Time]15.7 [facility], HIComment on above:Effective 11/26/18 Please note methodology and/or reference ranges have changed. Rapid Influenza A/B Antigenson 73-01-8138Ptlbywloo A by [facility], HIComment on above:Effective 01/07/19 Please note methodology and/or reference ranges have changed. Influenza B by [facility], HIComment on above:Effective 01/07/19 Please note methodology and/or reference ranges have changed. TSH w/out Reflexon 97-17-0881HME Qn4.350 uIU/mLCritically high0.440-3.86[facility] Institute At PuebloComment on above:Performed By: #### PT #### [facility] [address] [place] [address] NGV without Reflexon [id number] Qn4.350 m[IU]/LHighBarney Children's Medical Center, HITroponinon 20-03-7133Iniqodji I.cardiac [Mass/Vol]ng/mLNormal0.000-0.01 [facility] At PuebloComment on above:Result Comment: Methodology by Troponin T.Performed By: #### PT #### [facility] [address] [place] [address] Sspvhoof I.cardiac [Mass/Vol]ng/mL0 - 0.01 ng/mLBarney Children's Medical Center, [place] Comment on above:Methodology by Troponin T.Urinalysis Reflex to Cultureon [id number] UrineSMALLAbnormalNegCleveland Clinic [facility] Hospital, KYBlood, Urine NegativeNegativeMer Health- [place], KYClarity, UAClearClearMer Health- [place], [place] Color, UAORANGEAbnormalStraw/YellowMer Health- [place], KYGlucose, Ur250 mg/dL AbnormalNegativeWestern Reserve Hospital- [place], KYInterpretation and review of laboratory resultsAbnormalMer Health- [place], KYKetones Ql (U)TRACEAbnormalNegative mg/dL [facility]- [place], KYLeukocyte esterase Test strip Ql (U)NegativeNegativeMerMilitary Health System- [place], KYNitrite, UrineNegativeNegativeMer Health- [place], KYpH, UA5.0MerMilitary Health System- [place], KYProtein (U) [Mass/Vol]30 mg/dLAbnormalNegativeWestern [facility] Hospital- [place], [place] Specific [place], UA1.025MerMilitary Health System- [place], KYUrine Reflex to CultureYESMCleveland Clinic [facility]- [place], KYUrobilinogen, Urine1.0<2.0 E.U./dLWestern Reserve Hospital- [place], KYUrinalysis, reflex to cultureon 84-73-8685Uyihjnfpu Ql (U)SMALLAbnormalNegHaxtun Hospital DistrictComment on above:Performed By: #### BMP #### [facility] [address] [place] [address] Curvkfw (U)ClearNormalClearColorado Mental Health Institute At PuebloComment on above:Performed By: #### BMP #### [facility] [address] [place] [address] Xvfto (U)ORANGEAbnormalStraw/YellColorado Mental Health Institute At [facility] Comment on above:Performed By: #### BMP #### [facility] [address] [place] [address] Jcepewc Ql (U)250 mg/dLAbnoUCHealth Broomfield Hospital Comment on above:Performed By: #### BMP #### [facility] [address] [place] [address] Ophvsnrdet Ql (U)NegativeNormKindred Hospital - Denver South Comment on above:Performed By: #### BMP #### [facility] [address] [place] [address] Yftgbtb Ql (U)TRACEAblac du flambeauNegHaxtun Hospital District Comment on above:Performed By: #### BMP #### [facility] [address] [place] [address] Gtyqwncgn esterase Test strip Ql (U)NegativeAlbany Memorial HospitalComment on above:Performed By: #### BMP #### [facility] [address] [place] [address] Qluhogm Ql (U)NegativeLancasterNegHaxtun Hospital District Comment on above:Performed By: #### BMP #### [facility] [address] [place] [address] fH (U)5.0 [pH]Normal5.0-9.0[facility] At PuebloComment on above:Performed By: #### BMP #### [facility] [address] [place] [address] Byxovhy Ql (U)30 mg/dLCuba Memorial Hospital Comment on above:Performed By: #### BMP #### [facility] [address] [place] [address] Kovmxrun gravity (U) [Rel density]1.945Juyljb5.005-1.03[facility] Institute At PuebloComment on above:Performed By: #### BMP #### [facility] [address] [place] [address] Dwzlz Reflexed to [facility] Comment on above:Performed By: #### BMP #### [facility] [address] [place] [address] Wjyqckdcfbwk Qn (U)1.0 {Yared'U}/dLNormal< 2.0[facility] Institute At PuebloComment on above:Performed By: #### BMP #### [facility] [address] [place] [address] Qjfvz Microscopicon 46-61-7502Kavprgnx LM.HPF (Urine sed) [#/Area] NegativeNoBanner Fort Collins Medical CenterComment on above:Performed By: #### BMP #### [facility] [address] [place] [address] ULS (U) [#/Vol]1-8Vseysf7-2Hwmxu10 Mcintyre StreetComment on above:Performed By: #### BMP #### [facility] [address] [place] [address] Zbdaj Epithelial Cells Rasz1-2Avdqfr4-4Adzff[address] Comment on above:Performed By: #### BMP #### [facility] [address] [place] [address] Vbaev Hyaline Casts Acdk8-81Hjakmx0-6Dvxcj[address] Comment on above:Performed By: #### BMP #### [facility] [address] [place] [address] Zosbm WBC Vlob9-0Mmurov1-2Dbnvb10 Mcintyre StreetComment on above:Performed By: #### BMP #### [facility] [address] [place] [address] CP CHEST PORTABLEon [id number] CHEST PORTABLEPatient : 1950 Age: 68 years Gender: Male Order Date: 04/07/2019 6:30 PM. Exam: XR CHEST PORTABLE Number of Views: 1 Indication: Fever Comparison: None. Findings: Cardiomediastinal silhouette is within normal limits. Lungs are clear without evidence ofinfiltrate/pneumonia, pneumothorax or pleural effusion IMPRESSION: Impression: No radiographic evidence of acute cardiopulmonary disease Interpreted by: Fabio Bautista MD Signed by: Fabio Bautista MD 04/08/19 Final resultNoBanner Fort Collins Medical CenterproBNPon [id number] peptide B (Bld) [Mass/Vol]597 pg/mLNPenrose HospitalComment on above:Result Comment: NT-pro BNP ACUTE Interpretive Guidelines: Age Cutoff for [...] pooled analysis of 1256 patients. Heart Journal. 2006;27:330-337Performed By: #### PT #### [facility] [address] [facility] [address] [place] LESS THAN 1 HOURon 64-49-5305YO LESS THAN 1 HOURPatient : 1950 Age: 68 years Gender: Male [...] Signed by: Fabio Bautista MD 04/06/19 Final resultNoBanner Fort Collins Medical CenterPOCT Glucoseon 07-62-2020Tfetdmz [Mass/Vol]164 mg/dLCritically ivqu87-257CetwxColorado Mental Health Institute At PuebloComment on above:Performed By: #### PGLU #### [facility] [address] [facility] [address] PDI Performed onSpalding Rehabilitation HospitalComment on above:Performed By: #### PGLU #### [facility] [address] [facility] [place] [address] Bcajyud [Mass/Vol]164 mg/kEByqa57 - 115 mg/dlBarney Children's Medical Center, [place] Interpretation and review of laboratory resultsAbnoBrecksville VA / [facility], [place] Performed onACCU-CHEKMercy Health- [place], KYGlucose [Mass/Vol]189 mg/dLCritically ouey41-359VahbiColorado Mental Health Institute At PuebloComment on above:Performed By: #### PGLU #### [facility] [address] [place] [address] QKO Performed onSpalding Rehabilitation HospitalComment on above:Performed By: #### PGLU #### [facility] [address] [place] [address] Pvgzofl [Mass/Vol]189 mg/lAEgst93 - 115 mg/dlFort Meade, [place] Interpretation and review of laboratory resultsAbnormCentral Lake, [place] Performed onCarson City, KYProthrombin Timeon 81-00-6809ZMB Coag (PPP) [Relative time]1.0 {INR}NormalColorado Mental Health Institute At PuebloComment on above:Result Comment: Warfarin Therapy INR Therapeutic: 2.0-3.0 With Mechanical Valve: >2.5 Low-intensity Therapeutic Range: 1.5-2.0 Mod-intensity Therapeutic Range: 2.0-3.0 High-intensity Therapeutic Range: 2.5-3.5 HIgh-intensity Therapeutic Range: 3.0-4.0 Common Critical/Alarm Value: 5.0 Common Upper Limit Reported: 10.0 Effective 11/26/2018: Please note methodology and/or reference ranges have changed.Performed By: #### PT #### [facility] [address] [place] [address] QZ Coag (PPP) [Time]13.4 aTtofce74.3-14.9[facility] Institute At PuebloComment on above:Result Comment: Effective 11/26/18 Please note methodology and/or reference ranges have changed.Performed By: #### PT #### [facility] [address] [place] [address] Kscukpb-INRon 88-56-0138OUH Coag (PPP) [Relative time]1.0 {INR}[place], KYComment on above:Warfarin Therapy INR Therapeutic: 2.0-3.0 With Mechanical Valve: >2.5 Low-intensity Therapeutic Range: 1.5-2.0 Mod-intensity Therapeutic Range: 2.0-3.0 High-intensity Therapeutic Range: 2.5-3.5 HIgh-intensity Therapeutic Range: 3.0-4.0 Common Critical/Alarm Value: 5.0 Common Upper Limit Reported: 10.0 Effective 11/26/2018: Please note methodology and/or reference ranges have changed. PT Coag (PPP) [Time]13.4 [facility]- [place], KYComment on above:Effective 11/26/18 Please note methodology and/or reference ranges have changed. EKG 12 Leadon 37-04-0823Gxjhpe Iiia89OYJIjkbb Health- [place], KYP Ptzf21fcdcsjlTmdgu Health- [place], KYP-R Ysvajkuh393 [facility]- [place], KYQ-T Cavbjmuu263 [facility]- [place], KYQRS Ysramwzb09 [facility]- [place], KYQTc Calculation (Bazett)425 [facility]- [place], KYR Paxton-2degreesSumma Health [facility]- [place], KYT Pysw70vgaqehqEwgdz Health- [place], KYVentricular Lihn87WTWPcrvn Health- [place], KYNormal sinus rhythm Cannot rule out Inferior infarct , age undetermined Abnormal ECG No previous ECGs available Confirmed by Juan Vitale ([id number]) on 04/01/2019 7:17:49 AM [facility], KYEdi, Stevenpo Incoming Results From [facility] - 04/01/2019 7:18 AM EST Normal sinus rhythm Cannot rule out Inferior infarct , age undetermined Abnormal ECG No previous ECGs available Confirmed by Juan Vitale ([id number]) on 04/01/2019 7:17:49 AMBarney Children's Medical Center, [place] Basic Metabolic Panelon 08-81-9765Zctwmvi [Mass/Vol]9.0 mg/dLNormal8.5-9.9[facility] Institute At PuebloComment on above:Performed By: #### BMP #### [facility] [address] [place] [address] Hcjppwqe [Moles/Vol]98 mmol/TQebuyc08-847AcxykColorado Mental Health Institute At PuebloComment on above:Performed By: #### BMP #### [facility] [address] [place] [address] AT3 [Moles/Vol]25 mmol/KQehlmh34-46ZksixColorado Mental Health [facility] Comment on above:Performed By: #### BMP #### [facility] [address] [place] [address] Ijwivwgles [Mass/Vol]1.72 mg/dLCritically high0.70-1.20[facility] Institute At PuebloComment on above:Performed By: #### BMP #### [facility] [address] [place] [address] UOT/1.73 sq M predicted among blacks MDRD (S/P/Bld) [Vol rate/Area] 48.0 mL/min/{1.73_m2}Low>60[facility] Institute At PuebloComment on above:Result Comment: >60 mL/min/1.73m2 EGFR, calc. for ages 18 and older using the MDRD formula (not corrected for weight), is valid for stable renal function.Performed By: #### BMP #### [facility] [address] [place] [address] ZBQ/1.73 sq M.predicted MDRD (S/P/Bld) [Vol rate/Area]39.7 mL/min/{1.73_m2}Low>60[facility] At PuebloComment on above:Result Comment: >60 mL/min/1.73m2 EGFR, calc. for ages 18 and older using the MDRD formula (not corrected for weight), is valid for stable renal function.Performed By: #### BMP #### [facility] [address] [place] [address] Ibnbqiw [Mass/Vol]367 mg/dLCritically lkln45-23QdvmkDenver SpringsComment on above:Performed By: #### BMP #### [facility] [address] [place] [address] Iawwpslhq [Moles/Vol]4.5 mmol/LNormal3.4-4.9[facility] At PuebloComment on above:Performed By: #### BMP #### [facility] [address] [place] [address] [place] [Moles/Vol]136 mmol/HKpdsph636-727QhvdeColorado Mental Health Institute At PuebloComment on above:Performed By: #### BMP #### [facility] [address] [place] [address] Smmr nitrogen [Mass/Vol]23 mg/dLNormal8-23[facility] At PuebloComment on above:Performed By: #### BMP #### [facility] [address] [place] [address] Thjpp gap [Moles/Vol]13 mmol/LNormal9-15[facility] PuebloComment on above:Performed By: #### BMP #### [facility] [address] [place] [address] Llcdi gap [Moles/Vol]13 mmol/LMParkview Health [place], KYCalcium [Mass/Vol] 9.0 mg/dL8.5 - 9.9 mg/dLBarney Children's Medical [facility], KYChloride [Moles/Vol]98 mmol/LMCleveland Clinic [facility]- [place], KYCO2 [Moles/Vol]25 mmol/LMCleveland Clinic [facility]- [place], KYCreatinine [Mass/Vol] 1.72 mg/dLHigh0.7 - 1.2 mg/dLBarney Children's Medical Center, KYGFR Xeyaddpp84Dln>60 [facility], KYComment on above:>60 mL/min/1.73m2 EGFR, calc. for ages 18 and older using the MDRD formula (not corrected for weight), is valid for stable renal function. GFR Non- Ddrxnrzc87.7Low>60[facility], KYComment on above:>60 mL/min/1.73m2 EGFR, calc. for ages 18 and older using the MDRD formula (not corrected for weight), is valid for stable renal function. Glucose [Mass/Vol]367 mg/yVUhaj31 - 99 mg/dLBarney Children's Medical Center, KYInterpretation and review of laboratory resultsAbnormalBarney Children's Medical Center, KYPotassium [Moles/Vol]4.5 mmol/LMCleveland Clinic [facility]- [place], KYSodium [Moles/Vol]136 mmol/LMRock Hill, KYUrea nitrogen [Mass/Vol]23 mg/dL8 - 23 mg/dLFort [place], [place] CBCon 73-79-0046Lblvyovxtqd distribution width (RBC) [Ratio]12.7 %11.5 - 14.5 % [place], KYHematocrit (Bld) [Volume fraction]42.4 %42 - 52 %[place], KYHemoglobin (Bld) [Mass/Vol]14.3 g/dL14 - 18 g/dLFort Meade, KYInterpretation and review of laboratory resultsAbnormalBarney Children's Medical Center, [facility]H (RBC) [Entitic mass]30.8 pg27 - 31.3 pgBarney Children's Medical Center, HIMCHC (RBC) [Mass/Vol]33.7 %33 - 37 %[facility] HospitalV (RBC) [Entitic vol]91.3 fL80 - 100 fLFort Meade, KYPlatelets (Bld) [#/Vol]213 10*3/uL130 - 400 K/[facility], HIRBC (Bld) [#/Vol]4.65 10*6/uLLowBarney Children's Medical Center, HIWBC (Bld) [#/Vol]8.2 10*3/uL4.8 - 10.8 /[facility], HICBC With Platelet No Differentialon 48-90-0796Lmntdqglggi distribution width (RBC) [Ratio]12.7 % Wludpo55.5-14.5[facility] At PuebloComment on above:Performed By: #### CBCND #### [facility] [address] [place] [address] Jewcbbxhuf (Bld) [Volume fraction]42.4 %Bkapnw30.0-52.0[facility] Institute At PuebloComment on above:Performed By: #### CBCND #### [facility] [address] [place] [address] Oeqbkoxhmr (Bld) [Mass/Vol]14.3 g/tPTpkcqu36.0-18.0[facility] PuebloComment on above:Performed By: #### CBCND #### [facility] [address] [place] [address] ZWZ (RBC) [Entitic mass]30.8 brRlxeza38.0-31.3MDenver SpringsComment on above:Performed By: #### CBCND #### [facility] [address] [place] [address] KYAA (RBC) [Mass/Vol]33.7 %Snqiip08.0-37.0[facility] Institute At PuebloComment on above:Performed By: #### CBCND #### [facility] [address] [place] [address] UOG (RBC) [Entitic vol]91.3 zDLpbssa60.0-100.0[facility] At PuebloComment on above:Performed By: #### CBCND #### [facility] [address] [place] [address] Gvnwzaqtj (Bld) [#/Vol]213 10*3/xLMfmqgs797-556UxzkoColorado Mental Health Institute At PuebloComment on above:Performed By: #### CBCND #### [facility] [address] [place] [address] WQU (Bld) [#/Vol]4.65 10*6/uLLow4.70-6.10[facility] At PuebloComment on above:Performed By: #### CBCND #### [facility] [address] [place] [address] NWI (Bld) [#/Vol]8.2 10*3/uLNormal4.8-10.8[facility] At PuebloComment on above:Performed By: #### CBCND #### [facility] [address] [place] [address] Pkyfqrktgc A1Con 89-98-5202BlF8s (Bld) [Mass fraction]9.8 %High4.8 - 5.9 %[facility], KYInterpretation and review of laboratory resultsAbnormal [facility], KYHemoglobin A1con 50-81-8292MpQ9q (Bld) [Mass fraction]9.8 % Critically high4.8-5.9[facility] Institute At PuebloComment on above:Performed By: #### A1C #### [facility] [address] [facility] [address] Gejmjgbzotg Timeon 83-79-6191OMY Coag (PPP) [Relative time]1.9 {INR} NormalColorado Mental Health Institute At PuebloComment on above:Result Comment: Warfarin Therapy INR Therapeutic: 2.0-3.0 With Mechanical Valve: >2.5 Low-intensity Therapeutic Range: 1.5-2.0 Mod-intensity Therapeutic Range: 2.0-3.0 High-intensity Therapeutic Range: 2.5-3.5 HIgh-intensity Therapeutic Range: 3.0-4.0 Common Critical/Alarm Value: 5.0 Common Upper Limit Reported: 10.0 Effective 11/26/2018: Please note methodology and/or reference ranges have changed.Performed By: #### PT #### [facility] [address] [facility] [address] [place] Coag (PPP) [Time]22.6 sCritically high12.3-14.9[facility] Institute At PuebloComment on above:Result Comment: Effective 11/26/18 Please note methodology and/or reference ranges have changed.Performed By: #### PT #### [facility] [address] [facility] [address] Renjmyb-INRon 25-59-3738FRU Coag (PPP) [Relative time]1.9 {INR}[facility], KYComment on above:Warfarin Therapy INR Therapeutic: 2.0-3.0 With Mechanical Valve: >2.5 Low-intensity Therapeutic Range: 1.5-2.0 Mod-intensity Therapeutic Range: 2.0-3.0 High-intensity Therapeutic Range: 2.5-3.5 HIgh-intensity Therapeutic Range: 3.0-4.0 Common Critical/Alarm Value: 5.0 Common Upper Limit Reported: 10.0 Effective 11/26/2018: Please note methodology and/or reference ranges have changed. Interpretation and review of laboratory resultsAbnormUniversity Hospitals Beachwood Medical Center, KYPT Coag (PPP) [Time]22.6 [facility], KYComment on above:Effective 11/26/18 Please note methodology and/or reference ranges have changed. TYPE AND SCREENon [id number]/RhPositiveBarney Children's Medical Center, KYType and Screen Capture 3 scrn cellon 73-54-0559Tzbg and Screen Capture 3 scrn cellPATIENT: ABRAHAM Shrestha LOC: EMIGDIOGARCIA BILL# : [id number] : 1950 SEX: M ORDERED BY: BENTLEY Orourke ORDERED : 03/30/2019 12:58 COLLECTED: 03/30/2019 13:32 ORDER : [id number] RECEIVED : 03/30/2019 13:32 TEST NAME RESULT UNITS RANGES ABN FL ST ABORH Capture A POS F Antibody 3 Cell Scrn Captu NEG F [facility] CenterComment on above:Performed By: #### TS3C #### [facility] [address] [place] [address] IVV AND DIFFERENTIALon 04-08-2018% AUTOMATED IMMATURE GRANCanceled Owatonna ClinicComment on above:Order Comment: TEST CBC AND DIFFERENTIAL WAS CANCELLED, 04/08/2018 04:30 ?Cancel Reason:Patient Discharged. Result Comment: Percent differential counts (%) should be interpreted in the context of the absolute cell counts (cells/L).Performed By: #### CBC ####[id number] [place] [address]% NEUTROPHILCanceledOwatonna ClinicComment on above:Order Comment: TEST CBC AND DIFFERENTIAL WAS CANCELLED, 04/08/2018 04:30 ?Cancel Reason:Patient Discharged. Performed By: #### CBC ####[id number] [place] [address] Basophils/100 WBC Auto (Bld)CanceledOwatonna ClinicComment on above:Order Comment: TEST CBC AND DIFFERENTIAL WAS CANCELLED, 04/08/2018 04:30 ?Cancel Reason:Patient Discharged.Performed By: #### CBC ####[id number], [place] [address]SLJEPDGEHEVFDewnrjxgFeueofZYOwatonna Clinic Comment on above:Order Comment: TEST CBC AND DIFFERENTIAL WAS CANCELLED, 04/08/2018 04:30 ?Cancel Reason:Patient Discharged.Performed By: #### CBC ####[id number], [place] [address]Ftzpwzmrmds Auto #/vol (Bld) CanceledOwatonna ClinicComment on above:Order Comment: TEST CBC AND DIFFERENTIAL WAS CANCELLED, 04/08/2018 04:30 ?Cancel Reason:Patient Disc harged.Performed By: #### CBC ####[id number] [place] [address] Eosinophils/100 WBC Auto (Bld)CancelOwatonna ClinicComment on above:Order Comment: TEST CBC AND DIFFERENTIAL WAS CANCELLED, 04/08/2018 04:30 ?Cancel Reason:Patient Discharged.Performed By: #### CBC ####[id number], [place] [address]Vkkdyokmtcm distribution width Auto Ratio (RBC) CanceledOwatonna ClinicComment on above:Order Comment: TEST CBC AND DIFFERENTIAL WAS CANCELLED, 04/08/2018 04:30 ?Cancel Reason:Patient Disc harged.Performed By: #### CBC ####[id number] [place] [address] Hematocrit Auto Volume Fraction (Bld)CanceledOwatonna Clinic Comment on above:Order Comment: TEST CBC AND DIFFERENTIAL WAS CANCELLED, 04/08/2018 04:30 ?Cancel Reason:Patient Discharged.Performed By: #### CBC ####[id number], [place] [address]Zqfhzdgpdu mass conc (Bld)Canceled Owatonna ClinicComment on above:Order Comment: TEST CBC AND DIFFERENTIAL WAS CANCELLED, 04/08/2018 04:30 ?Cancel Reason:Patient Discharged. Performed By: #### CBC ####[id number], [place] [address]Klybjprqjmw Auto #/vol (Bld)CanceledOwatonna ClinicComment on above:Order Comment: TEST CBC AND DIFFERENTIAL WAS CANCELLED, 04/08/2018 04:30 ?Cancel Reason:Patient Discharged.Performed By: #### CBC ####[id number], [place] [address]Pdnnojhrcfv/100 WBC Auto (Bld)CanceledOwatonna ClinicComment on above:Order Comment: TEST CBC AND DIFFERENTIAL WAS CANCELLED, 04/08/2018 04:30 ?Cancel Reason:Patient Discharged.Performed By: #### CBC ####[id number], [place] [address]SRIY Auto mass conc (RBC) CanceledOwatonna ClinicComment on above:Order Comment: TEST CBC AND DIFFERENTIAL WAS CANCELLED, 04/08/2018 04:30 ?Cancel Reason:Patient Disc harged.Performed By: #### CBC ####[id number], [place] [address]GPW Auto Entitic volume (RBC)CanceledOwatonna ClinicComment on above:Order Comment: TEST CBC AND DIFFERENTIAL WAS CANCELLED, 04/08/2018 04:30 ?Cancel Reason:Patient Discharged.Performed By: #### CBC ####[id number], [place] [address]Mvsidhmbf Auto #/vol (Bld)CanceledOwatonna ClinicComment on above:Order Comment: TEST CBC AND DIFFERENTIAL WAS CANCELLED, 04/08/2018 04:30 ?Cancel Reason:Patient Discharged.Performed By: #### CBC ####[id number], [place] [address]Lbftkiarpng Auto #/vol (Bld) CanceledOwatonna ClinicComment on above:Order Comment: TEST CBC AND DIFFERENTIAL WAS CANCELLED, 04/08/2018 04:30 ?Cancel Reason:Patient Disc harged.Performed By: #### CBC ####[id number] [place] [address] Nucleated RBC/100 WBC Ratio (Bld)CanceledOwatonna Clinic Comment on above:Order Comment: TEST CBC AND DIFFERENTIAL WAS CANCELLED, 04/08/2018 04:30 ?Cancel Reason:Patient Discharged.Performed By: #### CBC ####[id number], [place] [address]Djaiyihal Auto #/vol (Bld)Canceled Owatonna ClinicComment on above:Order Comment: TEST CBC AND DIFFERENTIAL WAS CANCELLED, 04/08/2018 04:30 ?Cancel Reason:Patient Discharged. Performed By: #### CBC ####[id number], [place] [address]SNU Auto #/vol (Bld)CanceledOwatonna ClinicComment on above:Order Comment: TEST CBC AND DIFFERENTIAL WAS CANCELLED, 04/08/2018 04:30 ?Cancel Reason:Patient Discharged.Performed By: #### CBC ####[id number], [place] [address]LZW Auto #/vol (Bld)CanceledOwatonna ClinicComment on above:Order Comment: TEST CBC AND DIFFERENTIAL WAS CANCELLED, 04/08/2018 04:30 ?Cancel Reason:Patient Discharged.Performed By: #### CBC ####[id number], [place] [address]VQZNPUKLWdj 39-72-9092Fristpntk mass concCanceledOwatonna ClinicComment on above:Order Comment: TEST MAGNESIUM WAS CANCELLED, 04/08/2018 04:30 ?Cancel Reason: PatientDischarged.Performed By: #### CBC ####[id number], [place] [address]LA/INRon 74-20-4185DXU Coag RelTime (PPP)CancelOwatonna ClinicComment on above:Order Comment: TEST PT/INR WAS CANCELLED, 04/08/2018 04:30 ?Cancel Reason: PatientDischarged.Performed By: #### CBC ####[id number], [place] [address]Rcjdcnwgusz time (PT) Coag time (PPP)CancelOwatonna ClinicComment on above:Order Comment: TEST PT/INR WAS CANCELLED, 04/08/2018 04:30 ?Cancel Reason: PatientDischarged. Result Comment: Note new reference range as of 03/10/2018.Performed By: #### CBC ####[id number], [place] [address]OLWJF FUNCTION PANELon 04-08-2018 Albumin mass concCancelOwatonna ClinicComment on above:Order Comment: TEST RENAL FUNCTION PANEL WAS CANCELLED, 04/08/2018 04:30 ?Cancel Reason:Patient Discharged.Performed By: #### CBC ####[id number], [place] [address]Cphfy gap 3 molar concCancelOwatonna ClinicComment on above:Order Comment: TEST RENAL FUNCTION PANEL WAS CANCELLED, 04/08/2018 04:30 ?Cancel Reason:Patient Discharged.Performed By: #### CBC ####[id number], [place] [address]Ddpytbm mass concCancelOwatonna ClinicComment on above:Order Comment: TEST RENAL FUNCTION PANEL WAS CANCELLED, 04/08/2018 04:30 ?Cancel Reason:Patient Discharged. Performed By: #### CBC ####[id number], [place] [address]Kndtjdxc molar concCanceledOwatonna ClinicComment on above:Order Comment: TEST RENAL FUNCTION PANEL WAS CANCELLED, 04/08/2018 04:30 ?Cancel Reason:Patient Discharged.Performed By: #### CBC ####[id number], [place] [address]Mocvygntfa mass concCancelOwatonna ClinicComment on above:Order Comment: TEST RENAL FUNCTION PANEL WAS CANCELLED, 04/08/2018 04:30 ?Cancel Reason:Patient Discharged.Performed By: #### CBC ####[id number], [place] [address]FEX-UCLNKJG AM.CanBemidji Medical CenterComment on above:Order Comment: TEST RENAL FUNCTION PANEL WAS CANCELLED, 04/08/2018 04:30 ?Cancel Reason:Patient Discharged.Result Comment: CALCULATIONS OF ESTIMATED GFR ARE PERFORMED USING THE MDRD STUDY EQUATION FOR THE IDMS-TRACEABLE CREATININE METHODS. CLIN CHEM 2007;53:766-72 Performed By: #### CBC ####[id number], [place] [address]KOV-PSZ AM.CancelOwatonna ClinicComment on above:Order Comment: TEST RENAL FUNCTION PANEL WAS CANCELLED, 04/08/2018 04:30 ?Cancel Reason:Patient Discharged.Performed By: #### CBC ####[id number], [place] [address]Bmwyqpl mass concCancelOwatonna ClinicComeaton rapids medical center on above:Order Comment: TEST RENAL FUNCTION PANEL WAS CANCELLED, 04/08/2018 04:30 ?Cancel Reason:Patient Discharged.Performed By: #### CBC ####[id number], [place] [address]ZEH5 molar conc (Bld)CancelSt. Vincent's St. Clairal [facility] RiverComeaton rapids medical center on above:Order Comment: TEST RENAL FUNCTION PANEL WAS CANCELLED, 04/08/2018 04:30 ?Cancel Reason:Patient Discharged. Performed By: #### CBC ####[id number], [place] [address]Chzautzyp mass concCanceledOwatonna ClinicComment on above:Order Comment: TEST RENAL FUNCTION PANEL WAS CANCELLED, 04/08/2018 04:30 ?Cancel Reason:Patient Discharged.Result Comment: The performance characteristics of phosphorus testing in heparinized plasma have been validated by the individual laboratory site where testing is performed. Testing on heparinizedplasma is not approved by the FDA; however, such approval is not necessary.Performed By: #### CBC ####[id number], [place] [address]Lqadxhhth molar conc CanceledOwatonna ClinicComment on above:Order Comment: TEST RENAL FUNCTION PANEL WAS CANCELLED, 04/08/2018 04:30 ?Cancel Reason:Patient Disc harged.Performed By: #### CBC ####[id number] [place] [address] Sodium molar concCancelOwatonna ClinicComment on above:Order Comment: TEST RENAL FUNCTION PANEL WAS CANCELLED, 04/08/2018 04:30 ?Cancel Reason:Patient Discharged.Performed By: #### CBC ####[id number], [place] [address]Jvlb nitrogen mass concCanceledOwatonna ClinicComment on above:Order Comment: TEST RENAL FUNCTION PANEL WAS CANCELLED, 04/08/2018 04:30 ?Cancel Reason:Patient Discharged.Performed By: #### CBC ####[id number], [place] [address]PNJua 17-48-9518Musfbcnzjat distribution width Auto Ratio (RBC)13.1 %Bpwmfb57.5 - 14.5[facility] Toms RiverComment on above:Performed By: #### CBC ####[id number], [place] [address]Dbtrbbaihf Auto Volume Fraction (Bld)31.1 %Low41.0 - 52.0 [facility] Toms RiverComment on above:Performed By: #### CBC ####[id number], [place] [address]Rseshaynop mass conc (Bld)10.3 g/dL Low13.5 - 17.5[facility] Toms RiverComment on above:Performed By: #### CBC ####[id number], [place] [address]NFUW Auto mass conc (RBC)33.1 g/dL Zhwoug52.0 - 36.0[facility] Toms RiverComment on above:Performed By: #### CBC ####[id number], [place] [address]ELG Auto Entitic volume (RBC)93 uJFfpghk17 - 100[facility] Toms RiverComment on above:Performed By: #### CBC ####[id number], [place] [address]Cwgmsyoku RBC/100 WBC Ratio (Bld)0.0 /100 WBCNormal0.0-0.0[facility] Toms RiverComment on above: Performed By: #### CBC ####[id number], [place] [address]Lyfftbscj Auto #/vol (Bld)330 10*3/fBSvtmuk849 - 450[facility] Toms RiverComment on above:Performed By: #### CBC ####[id number], [place] [address]YJR Auto #/vol (Bld)3.34 x10E12/LLow4.50 - 5.90[facility] Toms RiverComment on above:Performed By: #### CBC ####[id number], [place] [address]LWJ Auto #/vol (Bld)11.8 10*3/uLHigh4.4 - 11.3[facility] Toms RiverComment on above:Performed By: #### CBC ####[id number], [place] [address]Ipbpw Progress Note-Cardiac Surgeryon 47-79-4021Sgivgps mass concService: Cardiac Surgery Subjective Data:DON ELKINS is a 67 year old Male who is Hospital Day # 21and POD #7 for CABGx 3;-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 Overnight Events: Patient had an uneventful night.Additional Information:No complaints today, patient eager to go home, feeling well. Objective Data: Objective Information: T ITRUYcB6Xzjtq78.3781 6105/6195%Date/Time04/07 11: 11 11:00Range(36C - 36.5C ) (67 -84 ) (16 - 20 ) (105 - 136 )/ (61 - 84 ) (93% -98% ) Pain with Activity reported at 04/07 11:00: 0Pain at Rest reported at 04/07 11:00: 0 Ufflwjt25/20 2:51: Weight in kg (Weight (kg)) 107. 2:51: Weight in lbs ((lbs)) 237 ---- Intake and Output -----Mn/Dy/Year TimeIntakeOutputNetNov 2017 6:00 [id number] 2017 10:00 [id number] 2017 2:00 [id number] The Intake and Output Totals for the last 24 hours are:[id number] Physical Exam: Constitutional: lying inbed; NAD, cooperativeEyes: sclera clearENMT: mucous membranes moistHead/Neck: neck suppleRespiratory/Thorax: nonlabored; fair inspir effort and cough; occas loosesounding cough; mildly diminished basessternum stableCardiovascular: RRR; TELE - SR 60s-70sno wiresGastrointestinal: obese; soft; NT/ND; BS+; BM 04/04Genitourinary: voiding per urinal; no dysuriaMusculoskeletal: MAEExtremities: no edema;well perfusedNeurological: awake; A&Ox4; no focal defPsychological: Appropriate mood and behaviorSkin: warm and dryINCISIONS: midsternal, leg DIRECTOR MUSEUM OR ZOO, well approx, w/o s/s infection Medication: Medications: Continuous Medications No continuous medications are active Scheduled Medications 1. Aspirin Enteric Coated: 81 mg Oral Daily2.Atorvastatin: 40 mg Oral Daily3. Citalopram (CELEXA): 20 mg Oral Daily4. Docusate: 100 mg Oral 2 Times a Day5. Fludrocortisone: 0.05 mg Oral 6. Furosemide: 40 mg Oral Daily7. Hydrocortisone: 10 mg Oral 8. Hydrocortisone: 5 mg Oral 9. Insulin Glargine (Lantus) Injectable: 20 unit(s) SubCutaneous At Bedtime 10. Insulin Lispro (HumaLOG) Injectable: 6 unit(s) SubCutaneous 3 Times aDay Before Meals11.Insulin Lispro Mild Corrective Scale: unit(s) SubCutaneous 3 Times a DayBefore Meals12. Iron Polysaccharide Complex: 150 mg Oral Daily13. Levothyroxine: 150 microgram(s) Oral Daily14. Lidocaine 5% TransDermal: 1 patch TransDermal Every 24 Hours15. Lisinopril: 5 mg Oral Daily16. Metoprolol Tartrate:75 mg Oral Every 12 Hours17. Multivitamin with Minerals: 1 tablet(s) Oral Daily18. Pantoprazole: 40mg Oral Daily19. Polyethylene Glycol: 17 gram(s) Oral 3 Times a Day20. rOPINIRole (REQUIP XL) Extended Release: 8 mg Oral Daily21. Warfarin: 7.5 mg Oral Daily PRN Medications 1. Bisacodyl Rectal: 10 mg Rectal Daily2. Dextrose 50% in Water Injectable: 25 gram(s) IntraVenous Push Every 96Otmqfrp8. Glucagon Injectable: 1 mg IntraMuscular Every 15 Minutes4. Ondansetron Injectable: 4 mg IntraVenous Push Every 6 Hours5. oxyCODONE Immediate Release: 5 mg Oral Every 4 Hours Recent Lab Results: Results: I have reviewed these laboratory results: Glucose_POCT 02-Kkp-661549:15:00 ResultValueGlucose-POCT 123 H Complete Blood Count 07-Apr-2018 [...] 11:23AM] Conclusion:Electrocardiogram 12 Lead [Apr 06 2018 11:22AM]Assessment and Plan:Assessment:67 yo WM with no prior history of CAD, who has a past medical history of HTN,HLD, T2DM, Brigida's disease, hypothyroidism, COPD, AKASH on CPAP, prostate Spring/p prostatectomy in 2011, and psoriasis [facility]. [place]. He as found to havebilat PEs, was started on Heparin gtt, and transferred to [facility]. He wasfound to have a troponin leak at 2.25. Cardiology was consulted and the patientwas diagnosed with ACS, NSTEMI. He underwent a TTE and cath. He had normal EF,mild AI, and triple vessel CAD so was transferred to [facility] for CABG eval.Pulm consulted for PE workup. 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 03/23/2018 OPERAT ION/PROCEDURE: by Severiano StapletonInferior vena cava filter. 03/31/18 OPERATION/PROCEDURE: by Dr. Hernandez x 3; REIS to LAD, SVG to PDA, SVG to DiagEndoscopic harvest of right saphenous vein CTICU course: HTN, endo following for DM and [place]'s disease, insulin gtt;one CT with air leak Transferred toT3 04/02 IMPRESSION AND PLAN: POD #7 s/p [...] 29.5, 26.6, 28.5]- MV, 1 month iron- dailyCBC Postop Volume/Electrolyte status - preop wt 106.8; EF normal- wt 108 [109.8, 109.9, 109.8]- 04/02 received 40mg oral Lasix- 04/03 adding 20mg IV Lasix daily for am- 04/04 increased 20mg IV Lasix to BID- 04/07 changed Lasix to PO for discharge- adjust diuresis as needed for postop cardiac surgery hypervolemia- replete electrolytes for hypokalemia/hypomagnesemia/hypophosphatemia asneeded - 04/03 replaced K, 04/04 replaced K and Mg; 04/05 replaced K and Mg,04/07 replaced Mg Renal - admission Cr 1.42, baseline 1.4-1.6; peak postop Cr 1.68- Cr 1.38, [1.28, 1.37, 1.24, 1.3, 1.32, 1.37]- avoid hypotension and nephrotoxics- tolerating diuresis and lauren- daily renal panel Endo - h/o [place]'s disease, DM, hypothyroidism- Appreciate endo recs, now have signed off as of 04/04- hydrocortisone taper ordered as per Endo recs for [place]'s- starting fludrocortisone 4 days per week on 04/06 as per Endo recs forAddison's- adjusted DM regimen as per Endo recs- continue levothyroxine- DM diet, accuchecks, SSI- 04/07 job honer met with patient to go over discharge [...] take continuousanticoagulation.--- Consideration of anticoagulation beyond 6 monthsduration--- Would restart unfractionated heparin after cardiac surgery [...] continue statin Neuro/Psych - h/o depression, RLS- continuehome citalopram- continue home ropinirole Proph- DVT prophylaxis - subcu heparin stopped 04/03 whenadded heparin gtt- SCD's/Elisabeth hose Disp- PT evaluation - home PT- anticipate discharge today, as INRis therapeutic- plan [facility] coumadin clinic under grain cleaner and transfer operator Dr Pisano- plan home advisor and PT Plan of care discussed with Dr. Gaston Signature/Cosignature/Attestation:Provider/Team Contact Info-Pager Numbercardiac surgery [phone] Electronic Signatures:Alexandra Milligan (PAC) (Signed 07-Apr-2018 14:05)Authored: Service, Subjective Data, Objective Data, Assessment and Plan,Signature/Cosignature/Attestation Last Updated: 07-Apr-2018 14:05 by Alexandra Milligan (PAC)[facility] ClinicGLUCOSE-POCTon 85-11-6802Jwwnuym mass iavv414 mg/xCSejc[address] Comment on above:Performed By: #### CBC ####[id number], [place] [address]Engfjml mass vyxd392 mg/rSRjck8022 Wilson StreetComment on above:Performed By: #### CBC ####[id number] [place] [address] HEPARIN ASSAY,UFHon 75-67-2747QTOLVYQ ASSAY,UFHCanceNorth Valley Health CenterComment on above:Order Comment: TEST HEPARIN ASSAY,UFH WAS CANCELLED, 04/06/2018 04:14 ?Cancel Reason:Discontinued.Result Comment: The therapeutic reference range for UFH may be either 0.3-0.6 IU/mL or 0.3-0.7 IU/mL based on the clinical setting for anticoagulant therapy and the associated nomogram used. For heparin dosing guidelines based on clinical scenario and Heparin Assay results, please refer to local Pharmacy and the [facility] Guidelines for Anticoagulation therapy available on the [facility] intranet at:[email or web address]/Pharmacy/Pages/[facility]_Guide lines_for_Anticoagu.aspxPerformed By: #### CBC ####[id number], [place] [address]Bzfgi Comment: TEST HEPARIN ASSAY,UFH WAS CANCELLED, 04/07/2018 04:44 ?Cancel Reason:Discontinued.HEPARIN ASSAY,UFH0.6 IU/mLNCook HospitalComment on above:Result Comment: The therapeutic reference range for UFH may be either 0.3-0.6 IU/mL or 0.3-0.7 IU/mL based on the clinical setting for anticoagulant therapy and the associated nomogram used. For heparin dosing guidelines based on clinical scenario and Heparin Assay results, please refer to local Pharmacy and the [facility] Guidelines for Anticoagulation therapy available on the [facility] intranet at:[email or web address]/Pharmacy/Pages/[facility]_Guide lines_for_Anticoagu.aspxPerformed By: #### CBC ####[id number], [place] [address]MFKLKIUKXxi 90-36-7669Djautcggg mass conc1.85 mg/dLNormal 1.60 - 2.40[facility]oms RiverComment on above:Performed By: #### CBC ####[id number], [place] [address]YC/INRon 74-18-4979SKY Coag RelTime (PPP)2.0 {INR}High0.9 - 1.1[facility] Toms RiverComment on above:Performed By: #### CBC ####[id number], [place] [address]Mbyqycbjxwx time (PT) Coag time (PPP)22.4 sHigh9.7 - 12.7[facility] Toms RiverComment on above: Result Comment: Note new reference range as of 03/10/2018.Performed By: #### CBC ####[id number], [place] [address]RIMZM FUNCTION PANELon 04-07-2018 Albumin mass conc3.3 g/dLLow3.4 - 5.0[facility]oms RiverComment on above:Performed By: #### CBC ####[id number], [place] [address]Uisiw gap 3 molar conc11 mmol/ZTtqofw09 - 20[facility] Toms RiverComment on above:Performed By: #### CBC ####[id number] [place] [address] Calcium mass conc8.9 mg/dLNormal8.6 - 10.6[facility] Toms RiverComment on above:Performed By: #### CBC ####[id number] [place] [address] Chloride molar njev785 mmol/JRvrilz12 - 107[facility] Toms RiverComment on above:Performed By: #### CBC ####[id number] [place] [address] Creatinine mass conc1.38 mg/dLHigh0.50 - 1.30[facility] Toms RiverComment on above:Performed By: #### CBC ####[id number] [place] [address] GFR- AM.62 mL/min/1.44s8Djcocq>60[facility] Toms RiverComment on above:Result Comment: CALCULATIONS OF ESTIMATED GFR ARE PERFORMED USING THE MDRD STUDY EQUATION FOR THE IDMS-TRACEABLE CREATININE METHODS. CLIN CHEM 2007;53:766-72Performed By: #### CBC ####[id number], [place] [address]XNB-RLD AM.51 mL/min/1.53l8Urxlllqp>60[facility] Comment on above:Performed By: #### CBC ####[id number], [place] [address]Caosufp mass awew537 mg/sSMcaj33 - 99[facility] T[facility] RiverComment on above:Performed By: #### CBC ####[id number], [place] [address]OQL1 molar conc (Bld)30 mmol/DIwkqih42 - 32[facility] Toms RiverComment on above:Performed By: #### CBC ####[id number] [place] [address] Phosphate mass conc4.7 mg/dLNormal2.5 - 4.9[facility] Toms RiverComment on above:Result Comment: The performance characteristics of phosphorus testing in heparinized plasma have been validated by the individual laboratory site where testing is performed. Testing on heparinizedplasma is not approved by the FDA; however, such approval is not necessary.Performed By: #### CBC ####[id number], [place] [address]Gmjhkqvsl molar conc4.2 mmol/L Normal3.5 - 5.3[facility] Toms RiverComment on above:Performed By: #### CBC ####[id number], [place] [address]Hwiezu molar ddqq042 mmol/L Wqcclv395 - 145[facility] Toms RiverComment on above:Performed By: #### CBC ####[id number], [place] [address]Mmuv nitrogen mass conc26 mg/dL High6 - 23[facility] T[facility] RiverComment on above:Performed By: #### CBC ####[id number], [place] [address]IAGjc 28-21-7554Uzvdjzdvzfr distribution width Auto Ratio (RBC)13.0 %Fmmwge55.5 - 14.5[facility] RiverComment on above:Performed By: #### CBC ####[id number], [place] [address]Kssgxsbitr Auto Volume Fraction (Bld)31.7 %Low41.0 - 52.0 [facility] RiverComment on above:Performed By: #### CBC ####[id number], [place] [address]Zzqhcrcwbc mass conc (Bld)10.6 g/dL Low13.5 - 17.5[facility] RiverComment on above:Performed By: #### CBC ####[id number], [place] [address]JYRI Auto mass conc (RBC)33.4 g/dL Ggvtnj32.0 - 36.0[facility] RiverComment on above:Performed By: #### CBC ####[id number], [place] [address]SNS Auto Entitic volume (RBC)92 eUBfddww28 - 100[facility] Toms RiverComment on above:Performed By: #### CBC ####[id number], [place] [address]Uedszbwio RBC/100 WBC Ratio (Bld)0.0 /100 WBCNormal0.0-0.0[facility] RiverComment on above: Performed By: #### CBC ####[id number], [place] [address]Orzazneht Auto #/vol (Bld)304 10*3/aCRfisqo295 - 450[facility] RiverComment on above:Performed By: #### CBC ####[id number], [place] [address]KPB Auto #/vol (Bld)3.44 x10E12/LLow4.50 - 5.90[facility] RiverComment on above:Performed By: #### CBC ####[id number], [place] [address]EIK Auto #/vol (Bld)12.3 10*3/uLHigh4.4 - 11.3[facility] RiverComment on above:Performed By: #### CBC ####[id number] [place] [address] COAGULATION SCREENon 45-78-8777vLCT Coag time (Bld)105 sCritically high28 - 38[facility] RiverComment on above:Order Comment: APTT CALLED RB TO ASHWIN JIANG , 04/06/2018 05:23Result Comment: Note new reference range as of 03/10/2018. THE APTT IS NO LONGER USED FOR MONITORING UNFRACTIONATED HEPARIN THERAPY. FOR MONITORING HEPARIN THERAPY, USE THE HEPARIN ASSAY..APTT CALLEDRB TO ASHWIN JIANG , 04/06/2018 05:23Performed By: #### CBC ####[id number], [place] [address]ANT Coag RelTime (PPP)1.5 {INR}High0.9 - 1.1[facility] Toms RiverComment on above:Order Comment: APTT CALLED RB TO ASHWIN JIANG , 04/06/2018 05:23Performed By: #### CBC ####[id number], [place] [address]Oljhatjeicy time (PT) Coag time (PPP)16.5 sHigh9.7 - 12.7[facility] T[facility] RiverComment on above:Order Comment: APTT CALLED RB TO ASHWIN JIANG , 04/06/2018 05:23Result Comment: Note new reference range as of 03/10/2018. Performed By: #### CBC ####[id number], [place] [address]Xmepc Progress Note-Cardiac Surgeryon 22-16-7146Uwhewgv mass concService: Cardiac Surgery Subjective Data:DON ELKINS is a 67 year old Male who is Hospital Day # 20and POD #6 for CABGx 3;-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 Overnight Events: Patient had an uneventful night. Objective Data: Objective Information: ----Intake and Output -----Mn/Dy/Year TimeIntakeOutputNetNov 2017 6:00 [id number] 2017 10:00 [id number] 2017 2:00 [id number] The Intake and Output Totals for the last 24 hours are:VhwgknSjwurdAls0244588-1664 Intake Output Enteral - Oral 120 mL Urine 2725 mL Medicated IV Hqigk671 mL T YUDMUnC8Vubce68.26255810/7394%Date/Time04/06 6: 6: 6: 6: 6:55Range(35.9C - 36.6C ) (65 - 77 ) (18 - 20 ) (111 - 132 )/ (67 - 76 ) (92%- 96% ) Dilmwgs13/19 3:28: Weight in kg (Weight (kg)) 36405/19 3:28: Weight in lbs ((lbs)) 238.3 Physical Exam: Constitutional: lying in bed; NAD, cooperativeEyes: sclera clearENMT: mucous membranes moistHead/Neck: neck suppleRespiratory/Thorax: nonlabored; fair inspir effort and cough; occas loosesounding cough; mildly diminished basessternum stableCardiovascular: RRR; TELE - SR 60s-70sno wiresGastrointestinal: obese; soft;NT/ND; BS+; BM 04/04Genitourinary: voiding per urinal; no dysuriaMusculoskeletal: MAEExtremities: no edema; well perfusedNeurological: awake; A&Ox4; no focal defPsychological: Appropriate mood and behaviorSkin: warm and dryINCISIONS: midsternal, leg DIRECTOR MUSEUM OR ZOO, well approx, w/o s/s infection Medication: Medications: Continuous Medications 1. Heparin 25,000 units/ D5W 250 mL Infusion..: 2000 units/hr IntraVenous Scheduled Medications 1. Aspirin Enteric Coated: 81 mg Oral [...] Insulin Glargine (Lantus) Injectable: 20 unit(s) SubCutaneous OgEyohgcl02. Insulin Lispro (HumaLOG) Injectable: 6 unit(s) SubCutaneous [...] Warfarin: 7.5 mg Oral Daily PRN Medications 1. Bisacodyl Rectal: 10 mg Rectal Daily2. Dextrose 50% in Water Injectable: 25 gram(s) IntraVenous Push Every 39Eyxuayg2. Glucagon Injectable: 1 mg IntraMuscular Every 15 Minutes4. Ondansetron Injectable: 4 mg IntraVenous Push Every 6 Hours5. oxyCODONE Immediate Release: 5 mg Oral Every 4 Hours Recent Lab Results: Results:I have reviewed these laboratory results: Glucose_POCT Trending View Ceazwv46-Cus-8986 07:00:00 05-Apr-2018 20:52:00 05-Apr-2018 17:25:00 05-Apr-2018 11:37:00 05-Apr-2018 07:13:00Glucose-ACHZ601 H 289 H 222 H 193 H [...] projection. Xray Chest 2 View PA + Lateral[Apr 04 2018 9:03AM] Assessment and Plan:Assessment:67 yo WM with no prior history of CAD, who has a past medical history of HTN,HLD, T2DM, [place]'s disease, hypothyroidism, COPD, AKASH on CPAP, prostate Spring/p prostatectomy in 2011, and psoriasis who [facility]G [facility]. [place]. He as found to havebilat PEs, was started on Heparin gtt, and transferred to [facility]. He wasfound to have a troponin leak at 2.25. Cardiology was consulted and the patientwas diagnosed with ACS, NSTEMI. He underwent a TTE and cath. He had normal EF,mild AI, and triple vessel CAD so was transferred to [facility] for CABG eval.Pulm consulted for PE workup. Pt required unfractionated heparin infusion for7-10 days to take advantage of intrinsic fibrinolysis and clot stabilization,as well as an IVC filter.Endocrine consulted for evaluation of [place] disease and treatment periop.Also managed DM. 03/23/2018 OPERATION/PROCEDURE: by Severiano RodriguezapInferior vena cava filter. 03/31/18 OPERATION/PROCEDURE: by Dr. Hernandez x 3; REIS to LAD, SVG to PDA, SVG to DiagEndoscopic harvest of right saphenous vein CTICU course: HTN, endo following for DM and [place]'s disease, insulin gtt;one CT with air leak [...] postop cardiac surgery hypervolemia- replete electrolytes for hypokalemia/hypomagnesemia/hypophosphatemia asneeded - 04/03 replaced K, 04/04 replaced K and Mg; 04/05 replaced K and Mg Renal - admission Cr 1.42, baseline 1.4-1.6; peak postop Cr 1.68- Cr 1.28 [1.37, 1.24, 1.3, 1.32, 1.37]- avoid hypotension and nephrotoxics- tolerating diuresis andace- daily renal panel Endo - h/o Brigida's disease, DM, hypothyroidism- Appreciate endo recs, now have signed off as of 04/04- hydrocortisone taper ordered as per Endo recs for [place]'s- starting fludrocortisone 4 days per week on [...] heparin stopped 04/03 when added heparin gtt- SCD's/Elisabeth walker Disp- PT evaluation - home PT- anticipate discharge when INR therapeutic- plan [facility] coumadin clinic under grain cleaner and transfer operator Dr Pisano- plan home advisor and PT- continue to assess discharge needs Signature/Cosignature/Attestation:Provider/Team Contact Info- Pager Numbercardiac surgery [phone] Electronic Signatures:Mary Munroe (HEALTH AND SAFETY TECH- IRON WORKER APPRENTICE) (Signed 06-Apr-2018 18:26)Authored: Service, Subjective Data, Objective Data, Assessment and Plan,Signature/Cosignature/Attestation Last Updated: 06-Apr-2018 18:26 by Mary Munroe (HEALTH AND SAFETY TECH-IRON WORKER APPRENTICE)[facility] GLUCOSE-POCTon 33-91-1979Xvnamwh mass tecw733 mg/sBArct8522 [address] StreetComment on above:Performed By: #### CBC ####[id number], [place] [address]Dumcojt mass rmtd891 mg/sHRvcx1122 [address] StreetComment on above:Performed By: #### CBC ####[id number], [place] [address]Tfnkyid mass wuor041 mg/hWIvez1122 [address] StreetComment on above:Performed By: #### CBC ####[id number], [place] [address]Mtqadmj mass uyun051 mg/qQJlrf9022 [address] StreetComment on above:Performed By: #### CBC ####[id number], [place] [address]AHKQTPL ASSAY,UFHon 09-50-9496KULHXWY ASSAY,UFH0.5 IU/mL [facility] ClinicComment on above:Result Comment: The therapeutic reference range for UFH may be either 0.3-0.6 IU/mL or 0.3-0.7 IU/mL based on the clinical setting for anticoagulant therapy and the associated nomogram used. For heparin dosing guidelines based on clinical scenario and Heparin Assay results, please refer to local Pharmacy and the [facility] Guidelines for Anticoagulation therapy available on the [facility] intranet at:[email or web address]/Pages/[facility]_Guide lines_for_Anticoagu.aspxPerformed By: #### CBC ####[id number], [place] [address]HUIJOBV ASSAY,UFH0.7 IU/mLNCook HospitalComment on above:Result Comment: The therapeutic reference range for UFH may be either 0.3-0.6 IU/mL or 0.3-0.7 IU/mL based on the clinical setting for anticoagulant therapy and the associated nomogram used. For heparin dosing guidelines based on clinical scenario and Heparin Assay results, please refer to local Pharmacy and the [facility] Guidelines for Anticoagulation therapy available on the [facility] intranet at:[email or web address]://[email or web address]/Pharmacy/Pages/[facility]_Guide lines_for_Anticoagu.aspxPerformed By: #### CBC ####[id number], [place] [address]EQFTIXJ ASSAY,UFKettering Health – Soin Medical CenterComeaton rapids medical center on above:Order Comment: TEST HEPARIN ASSAY,UFH WAS CANCELLED, 04/06/2018 10:03 NO SPECIMEN RECEIVEDIN LAB.Result Comment: The therapeutic reference range for UFH may be either 0.3-0.6 IU/mL or 0.3-0.7 IU/mL based on the clinical setting for anticoagulant therapy and the associated nomogram used. For heparin dosing guidelines based on clinical scenario and Heparin Assay results, please refer to local Pharmacy and the [facility] Guidelines for Anticoagulation therapy available on the [facility] intranet at:[email or web address]/Pharmacy/Pages/[facility]_Guide lines_for_Anticoagu.aspxPerformed By: #### CBC ####[id number], [place] [address]RXINCZM ASSAY,UFHCFairmont Hospital and ClinicComeaton rapids medical center on above:Order Comment: TEST HEPARIN ASSAY,UFH WAS CANCELLED, 04/06/2018 09:52 NO SPECIMEN RECEIVEDIN LAB.Result Comment: The therapeutic reference range for UFH may be either 0.3-0.6 IU/mL or 0.3-0.7 IU/mL based on the clinical setting for anticoagulant therapy and the associated nomogram used. For heparin dosing guidelines based on clinical scenario and Heparin Assay results, please refer to local Pharmacy and the [facility] Guidelines for Anticoagulation therapy available on the [facility] intranet at:[email or web address]://[email or web address]/Pharmacy/Pages/[facility]_Guide lines_for_Anticoagu.aspxPerformed By: #### CBC ####[id number], [place] [address]UDDTLJF ASSAY,UFH0.8 IU/mLNormalHealthSouth - Rehabilitation Hospital of Toms RiverComment on above:Result Comment: The therapeutic reference range for UFH may be either 0.3-0.6 IU/mL or 0.3-0.7 IU/mL based on the clinical setting for anticoagulant therapy and the associated nomogram used. For heparin dosing guidelines based on clinical scenario and Heparin Assay results, please refer to local Pharmacy and the [facility] Guidelines for Anticoagulation therapy available on the [facility] intranet at:[email or web address]/Pharmacy/Pages/[facility]_Guide lines_for_Anticoagu.aspxPerformed By: #### CBC ####[id number], [place] [address]WJYLMVTWSee 93-37-6850Ycfmlobwp mass conc2.03 mg/dLNormal 1.60 - 2.40[facility] Toms RiverComment on above:Performed By: #### CBC ####[id number], [place] [address]Vetdblwff Therapy-Noteon 04-06-2018 Nutrition Therapy-NoteAssessment Subjective/Objective:Note Type: Note Note Authored by: Registered Dietitian NutritionistPager Number: [phone] Nutrition Note:The patient is a 67 year [...] Updated: 06-Apr-2018 11:27 by Claribel Damon (JASMEET VORA)NormalHealth[facility] - Rehabilitation Hospital of Toms RiverPT/INR on 76-37-2239PDL Coag RelTime (PPP)CanceledNormVibra Long Term Acute Care Hospital Comment on above:Order Comment: TEST PT/INR WAS CANCELLED, 04/06/2018 09:51 NO SPECIMEN RECEIVED IN LAB.Performed By: #### CBC ####[id number], [place] [address]Luzrqhmxxmm time (PT) Coag time (PPP)CanceledNormalUHealthsouth - Specialty Hospital Of UnionComment on above:Order Comment: TEST PT/INR WAS CANCELLED, 04/06/2018 09:51 NO SPECIMEN RECEIVED IN LAB.Result Comment: Note new reference range as of 03/10/2018.Performed By: #### CBC ####[id number], [place] [address]JGLRX FUNCTION PANELon 94-15-9114Bhkkywe mass conc3.7 g/dLNormal3.4 - 5.0[facility] Toms RiverComment on above:Performed By: #### CBC ####[id number], [place] [address]Mleos gap 3 molar conc13 mmol/BUdolie01 - 20[facility] Toms RiverComment on above:Performed By: #### CBC ####[id number], [place] [address]Dddxscf mass conc9.0 mg/dL Normal8.6 - 10.6[facility] of Toms RiverComment on above:Performed By: #### CBC ####[id number], [place] [address]Ysspzoiq molar conc98 mmol/L Sshcje46 - 107[facility] Toms RiverComment on above:Performed By: #### CBC ####[id number], [place] [address]Jtmfoqdubg mass conc1.28 mg/dL Normal0.50 - 1.30[facility] Toms RiverComment on above:Performed By: #### CBC ####[id number], [place] [address]TPP-KDBGCCT AM.68 mL/min/1.73m2 Normal>60[facility] Toms RiverComment on above:Result Comment: CALCULATIONS OF ESTIMATED GFR ARE PERFORMED USING THE MDRD STUDY EQUATION FOR THE IDMS-TRACEABLE CREATININE METHODS. CLIN CHEM 2007;53:766-72Performed By: #### CBC ####[id number], [place] [address]QSW-ZKP AM.56 mL/min/1.15j0Ltytndpi>60[facility] Toms RiverComment on above:Performed By: #### CBC ####[id number], [place] [address]Phmxfpb mass rnng166 mg/uYAfsd03 - 99[facility] Toms RiverComment on above:Performed By: #### CBC ####[id number], [place] [address]EPF8 molar conc (Bld)29 mmol/L Iiivyl15 - 32[facility] Toms RiverComment on above:Performed By: #### CBC ####[id number], [place] [address]Ouamlqqhl mass conc3.8 mg/dLNormal 2.5 - 4.9[facility] Toms RiverComment on above:Result Comment: The performance characteristics of phosphorus testing in heparinized plasma have bee n validated by the individual laboratory site where testing is performed. Testing on heparinizedplasma is not approved by the FDA; however, such approval is not necessary.Performed By: #### CBC ####[id number], [place] [address]Fryuhysou molar conc4.1 mmol/LNormal3.5 - 5.3[facility] Comment on above:Performed By: #### CBC ####[id number], [place] [address]Gscrhd molar golx356 mmol/CRfogok301 - 145[facility] Comment on above:Performed By: #### CBC ####[id number], [place] [address]Apmq nitrogen mass conc23 mg/dLNormal6 - 23[facility] Comment on above:Performed By: #### CBC ####[id number], [place] [address]CCGbw 43-38-3343Hnlatkmhqga distribution width Auto Ratio (RBC)12.7 %Normal 11.5 - 14.5[facility] Toms RiverComment on above:Performed By: #### CBC ####[id number], [place] [address]Pohpdvgguh Auto Volume Fraction (Bld)29.5 %Low41.0 - 52.0[facility] Toms RiverComment on above:Performed By: #### CBC ####[id number], [place] [address]Qgpkghvwyn mass conc (Bld)9.8 g/dLLow13.5 - 17.5[facility] Toms RiverComment on above:Performed By: #### CBC ####[id number], [place] [address]PTWK Auto mass conc (RBC)33.2 g/iUQgjndd54.0 - 36.0[facility] Toms RiverComment on above: Performed By: #### CBC ####[id number], [place] [address]KAP Auto Entitic volume (RBC)91 eTXdtqbw38 - 100[facility] Toms RiverComment on above:Performed By: #### CBC ####[id number] [place] [address] Nucleated RBC/100 WBC Ratio (Bld)0.0 /100 WBCNormal0.0-0.0[facility] Toms RiverComment on above:Performed By: #### CBC ####[id number], [place] [address]Ocfemwseh Auto #/vol (Bld)249 10*3/hDFqlnrn915 - 450[facility] Toms RiverComment on above:Performed By: #### CBC ####[id number], [place] [address]EDY Auto #/vol (Bld)3.23 x10E12/LLow4.50 - 5.90[facility] Toms RiverComment on above:Performed By: #### CBC ####[id number], [place] [address]HDZ Auto #/vol (Bld)10.2 10*3/uLNormal4.4 - 11.3[facility] Toms RiverComment on above:Performed By: #### CBC ####[id number], [place] [address]DETSWYXOIRP SCREENon 52-81-0559jDHL Coag time (Bld)93 sHigh28 - 38[facility] Toms RiverComment on above:Result Comment: Note new reference range as of 03/10/2018. THE APTT IS NO LONGER USED FOR MONITORING UNFRACTIONATED HEPARIN THERAPY. FOR MONITORING HEPARIN THERAPY, USE THE HEPARIN ASSAY.Performed By: #### CBC ####[id number], [place] [address]EHX Coag RelTime (PPP)1.4 {INR}High0.9 - 1.1[facility] Comment on above:Performed By: #### CBC ####[id number], [place] [address]Yuemoczhgdd time (PT) Coag time (PPP)15.1 sHigh9.7 - 12.7[facility] Toms RiverComment on above:Result Comment: Note new reference range as of 03/10/2018.Performed By: #### CBC ####[id number] [place] [address] Clinical Event Note-CUT epicardial wireson 33-46-0216Mvedurpj Event Note-CUT epicardial wiresEvent:Topic: CUT epicardial wiresDetails:11:05 Atrial and ventricular wires cut at skin level. Patient instructed tonotify radiology of retained epicardial wires prior to any MRI procedure, andto notify Dr. Gaston's of any visible wires or s/s infection. Provider / Team Contact Information:Provider/Team Contact Info-Pager Number: cardiac surgery [phone] Electronic Signatures:Alexandra Milligan (PAC) (Signed 05-Apr-2018 11:17)Authored: Event, Provider / Team Contact Information Last Updated: 05-Apr-2018 11:17 by Alexandra Millgian (PAC)[facility] Daily Progress Note-Cardiac Surgeryon 48-78-8494Hwdfdxx mass concService: Cardiac Surgery Subjective Data:DON ELKINS is a 67 year old Male who is Hospital Day # 19and POD #5 for CABGx 3;-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 Overnight Events: Patient had an uneventful night.Additional Information:Patient eager to go home, I explained to patient we are bridging heparin tocoumadin and it could take a couple more days; patient in understanding;patient feeling well, no complaints overnight Objective Data: Objective Information: T LETCDqD3Nclqu45.31007437/6996%Date/Time04/05 10: 10: 10: 10: 10:56Range(36.3C - 37.5C ) (63 - 75 ) (18 - 20 ) (109 - 131 )/ (64 - 75 ) (93%- 96% )Highest temp of 37.5 C was recorded at 04/04 22:38 Pain with Activity reported at 04/05 8:20: 0Pain at Rest reported at 04/05 8:20: 0 Zpfmxek50/18 2:00: Weight in kg (Weight (kg)) 109.8106/05 2:00: Weight in lbs ((lbs)) 242.1 ---- Intake and Output -----Mn/Dy/Year TimeIntakeOutputNetNov 2017 6:00 [id number], 2018 10:00 [id number] 2017 2:00 [id number] The Intake and Output Totals for the last 24 hours are:[id number] Physical Exam: Constitutional: lying in bed; NAD, cooperativeEyes: sclera clearENMT: mucous membranes moistHead/Neck: neck suppleRespiratory/Thorax: nonlabored; fairinspir effort and cough; occas loosesounding cough; mildly diminished basessternum stableCardiovascular: RRR; TELE - SR 70s; 04/02 8 beat NSVT notedwires to temp pacer A60, no pacing noted - CUT today on exam 04/05Gastrointestinal: obese; soft; NT/ND; BS+; BM 04/04Genitourinary: voiding per urinal;no dysuriaMusculoskeletal: MAEExtremities: trace BLE edema; well perfusedNeurological: awake; A&Ox4; no focal defPsychological: Appropriate mood and behaviorSkin: warm and dryINCISIONS: midsternal, leg DIRECTOR MUSEUM OR ZOO, well approx, w/o s/s infection Medication: Medications: Continuous Medications 1. Heparin 25,000 units/ D5W 250 mL Infusion..: 2000 units/hr IntraVenous Scheduled Medications 1. Aspirin Enteric Coated: 81 mg Oral [...] Oral Daily12. Levothyroxine: 150 microgram(s) Oral Daily13. Lidocaine5% TransDermal: 1 patch TransDermal Every 24 Hours14. Magnesium Oxide: 400 mg Oral Once15. Metoprolol Tartrate: 75 mg Oral Every 12 Hours16. Multivitamin with Minerals: 1 tablet(s) Oral Daily17. Pantoprazole: 40 mg Oral Daily18. Polyethylene Glycol: 17 gram(s) Oral 3 Times a Day19. Potassium Chloride Extended Release: 40 mEq Oral 2 Times a Day20. rOPINIRole (REQUIP XL) Extended Release: 8 mg EsqpDfhqp96. Warfarin: 7.5 mg Oral Daily PRN Medications 1. Bisacodyl Rectal: 10 mg Rectal Daily2. Dextrose 50% in Water Injectable: 25 gram(s) IntraVenous Push Every 65Pgxkkwo0. Glucagon Injectable: 1 mg IntraMuscular Every 15 Minutes4. Ondansetron Injectable: 4 mg IntraVenous Push Every 6 Hours5. oxyCODONE Immediate Release: 5 mg Oral Every 4 Hours6. oxyCODONE Immediate Release: 10 mg Oral Every 4 Hours Recent Lab Results: Results: I have reviewed these laboratoryresults: Complete Blood Count 05-Apr-2018 09:35:00 ResultValueWhite Blood Cell Count 10.2Nucleated Erythrocyte Count 0.0Red Blood Cell Count 3.23 LHGB 9.8 LHCT 29.5 LMCV 91MCHC 33.2PLT 249RDW-CV 12.7Coagulation Screen 05-Apr-2018 09:35:00 ResultValueProthrombin Time, Plasma 15.1 [...] Assessment and Plan:Assessment:67 yo WM with no priorhistory of CAD, who has a past medical history of HTN,HLD, T2DM, [place]'s disease, hypothyroidism,COPD, AKASH on CPAP, prostate Spring/p prostatectomy in 2011, and psoriasis who was transferred to [facility] on 03/18 for CABG eval. [place]. He as found to havebilat PEs, was started on Heparin gtt, and transferred to [facility]. He wasfound to have a troponin leak at 2.25. Cardiology was consulted and the patientwas diagnosed with ACS, NSTEMI. He underwent a TTE and cath. He had normal EF,mild AI, and t riple vessel CAD so was transferred to [facility] for CABG eval.Pulm consulted for PE workup. [...] BB- on hydralazine out of ICU; change toace if renal function allows- pain and anticonstipation [...] BID from 50 mg PO q8 Acute postopblood loss anemia- hct 29.5, 26.6, 28.5- MV, 1 month iron- daily CBC Postop thrombocytopenia- plts 249, 173, 144, 130, 122- daily cbc Postop Volume/Electrolyte status - preop wt 106.8 ; EF normal- wt109.8, 109.9, 109.8- 04/02 received 40mg oral Lasix- 04/03 adding 20mg IV Lasix daily for am- 04/04increased Lasix to BID- adjust diuresis as needed for postop cardiac surgery hypervolemia- replete electrolytes for hypokalemia/hypomagnesemia/hypophosphatemia asneeded - 04/03 replaced K, 04/04 replaced K and Mg; 04/05 replaced K and Mg Endo - h/o Cincinnati's disease, DM, hypothyroidism- Appreciate endo recs, now have signed off as of 04/04- hydrocortisone taper ordered as per Endo recs for Cincinnati's- starting fludrocortisone 4 days per week on 04/06 as per Endo recs forAddison's- adjusting DM regimen as per Endo recs- continue levothyroxine- DM diet, accuchecks, SSI Unprovoked bilat PE's preop- Pulm consult evaluated pt preop: surgery delayed as per pulm recs for heparinanticoagulation of appropriate interval; IVC filter placed 03/23- As per Dr Yu:--- Place IVC filter electively beforesurgery as heparin will need to beinterrupted - [...] heparin; stopped 04/03 when added heparin gtt- SCD's/Elisabeth hose Disp- PT evaluation - home PT- anticipate discharge next 2-3 days depending on INR- plan home advisor and PT- continue to assess discharge needs Plan of care discussed with Dr. Gaston Signature/Cosignature/Attestation:Provider/Team Contact Info-Pager Numbercardiac surgery [phone] Electronic Signatures:Somogyi, Alexandra N (PAC) (Signed 05-Apr-2018 15:48)Authored: Service, Subjective Data, Objective Data, Assessment and Plan,Signature/Cosignature/Attestation Last Updated: 05-Apr-2018 15:48 by Alexandra Milligan (PAC)[facility] ClinicGLUCOSE-POCTon 30-69-3194Pbavrjs mass bjdz711 mg/eTEgjq[address] Comment on above:Performed By: #### CBC ####[id number], [place] [address]Lefakrd mass sbqr394 mg/sZPwrs6822 Wilson StreetComment on above:Performed By: #### CBC ####[id number] [place] [address] Glucose mass cvli233 mg/bWWhol5122 Wilson StreetComment on above:Performed By: #### CBC ####[id number] [place] [address] Glucose mass jeai719 mg/iCKxsl3722 Wilson StreetComment on above:Performed By: #### CBC ####[id number] [place] [address] HEPARIN ASSAY,UFHon 60-92-3041XMFYPUL ASSAY,UFH0.7 IU/mLNCook HospitalComment on above:Result Comment: The therapeutic reference range for UFH may be either 0.3-0.6 IU/mL or 0.3-0.7 IU/mL based on the clinical setting for anticoagulant therapy and the associated nomogram used. For heparin dosing guidelines based on clinical scenario and Heparin Assay results, please refer to local Pharmacy and the [facility] Guidelines for Anticoagulation therapy available on the [facility] intranet at:[email or web address]_Guide lines_for_Anticoagu.aspxPerformed By: #### CBC ####[id number], [place] [address]CQQXVLTIToq 38-25-3572Zobqbvheq mass conc1.75 mg/dLNormal 1.60 - 2.40[facility] RiverComment on above:Performed By: #### CBC ####[id number], [place] [address]BHRCG FUNCTION PANELon 04-05-2018 Albumin mass conc3.3 g/dLLow3.4 - 5.0[facility] RiverComment on above:Performed By: #### CBC ####[id number], [place] [address]Wtasz gap 3 molar conc14 mmol/IMfxtsc73 - 20[facility] RiverComment on above:Performed By: #### CBC ####[id number] [place] [address] Calcium mass conc8.5 mg/dLLow8.6 - 10.6[facility] T[facility] RiverComment on above:Performed By: #### CBC ####[id number] [place] [address] Chloride molar conc96 mmol/LLow98 - 107[facility] T[facility] RiverComment on above:Performed By: #### CBC ####[id number] [place] [address] Creatinine mass conc1.37 mg/dLHigh0.50 - 1.30[facility] RiverComment on above:Performed By: #### CBC ####[id number] [place] [address] GFR- AM.63 mL/min/1.49e3Woafbx>60[facility] Toms RiverComment on above:Result Comment: CALCULATIONS OF ESTIMATED GFR ARE PERFORMED USING THE MDRD STUDY EQUATION FOR THE IDMS-TRACEABLE CREATININE METHODS. CLIN CHEM 2007;53:766-72Performed By: #### CBC ####[id number], [place] [address]QTL-SOP AM.52 mL/min/1.54z5Rtewwbrs>60[facility] Comment on above:Performed By: #### CBC ####[id number], [place] [address]Rcmmmig mass ifuw864 mg/pXWncb25 - 99[facility] T[facility] RiverComment on above:Performed By: #### CBC ####[id number], [place] [address]YZJ3 molar conc (Bld)26 mmol/CGgofwl44 - 32[facility] Toms RiverComment on above:Performed By: #### CBC ####[id number] [place] [address] Phosphate mass conc2.9 mg/dLNormal2.5 - 4.9[facility] T[facility] RiverComment on above:Result Comment: The performance characteristics of phosphorus testing in heparinized plasma have been validated by the individual laboratory site where testing is performed. Testing on heparinizedplasma is not approved by the FDA; however, such approval is not necessary.Performed By: #### CBC ####[id number], [place] [address]Blmiurmta molar conc3.3 mmol/LLow 3.5 - 5.3[facility] T[facility] RiverComment on above:Performed By: #### CBC ####[id number], [place] [address]Xdgopc molar svzk646 mmol/KKds766 - 145[facility] T[facility] RiverComment on above:Performed By: #### CBC ####[id number], [place] [address]Ccvp nitrogen mass conc23 mg/dL Normal6 - 23[facility] RiverComment on above:Performed By: #### CBC ####[id number], [place] [address]FSNce 68-54-5557Okxrgpajbrh distribution width Auto Ratio (RBC)CanceledOwatonna Clinic Comment on above:Order Comment: TEST CBC WAS CANCELLED, 04/04/2018 18:30 ?Cancel Reason: Cancelled.Performed By: #### CBC ####[id number], [place] [address]Ozbdkqrmmn Auto Volume Fraction (Bld)CanceledOwatonna ClinicComment on above:Order Comment: TEST CBC WAS CANCELLED, 04/04/2018 18:30 ?Cancel Reason: Cancelled.Performed By: #### CBC ####[id number], [place] [address]Jgjjhroudc mass conc (Bld)CanceledOwatonna ClinicComment on above:Order Comment: TEST CBC WAS CANCELLED, 04/04/2018 18:30 ?Cancel Reason: Cancelled.Performed By: #### CBC ####[id number], [place] [address]RATL Auto mass conc (RBC)CanceledOwatonna ClinicComment on above:Order Comment: TEST CBC WAS CANCELLED, 04/04/2018 18:30 ?Cancel Reason: Cancelled.Performed By: #### CBC ####[id number], [place] [address]XLF Auto Entitic volume (RBC)CanceledOwatonna ClinicComment on above:Order Comment: TEST CBC WAS CANCELLED, 04/04/2018 18:30 ?Cancel Reason: Cancelled.Performed By: #### CBC ####[id number], [place] [address]Ifuwqvyok RBC/100 WBC Ratio (Bld)CanceledOwatonna ClinicComment on above:Order Comment: TEST CBC WAS CANCELLED, 04/04/2018 18:30 ?Cancel Reason: Cancelled.Performed By: #### CBC ####[id number], [place] [address]Ccmvezhgo Auto #/vol (Bld)CanceledOwatonna ClinicComment on above:Order Comment: TEST CBC WAS CANCELLED, 04/04/2018 18:30 ?Cancel Reason: Cancelled.Performed By: #### CBC ####[id number], [place] [address]QGO Auto #/vol (Bld)CanceledOwatonna ClinicComment on above:Order Comment: TEST CBC WAS CANCELLED, 04/04/2018 18:30 ?Cancel Reason: Cancelled.Performed By: #### CBC ####[id number], [place] [address]UYT Auto #/vol (Bld)CanceledOwatonna ClinicComment on above:Order Comment: TEST CBC WAS CANCELLED, 04/04/2018 18:30 ?Cancel Reason: Cancelled.Performed By: #### CBC ####[id number], [place] [address]Sucmyynpyrx distribution width Auto Ratio (RBC)Canceled [facility]Come[facility] on above:Order Comment: TEST CBC WAS CANCELLED, 04/04/2018 03:39 No specimen received.Performed By: #### CBC ####[id number], [place] [address]Bnxxbprrcb Auto Volume Fraction (Bld)CanceledOwatonna ClinicComeaton rapids medical center on above:Order Comment: TEST CBC WAS CANCELLED, 04/04/2018 03:39 No specimen received.Performed By: #### CBC ####[id number], [place] [address]Qgegujvegd mass conc (Bld) CanceledOwatonna ClinicComeaton rapids medical center on above:Order Comment: TEST CBC WAS CANCELLED, 04/04/2018 03:39 No specimen received.Performed By: #### CBC ####[id number], [place] [address]GJTV Auto mass conc (RBC)Canceled [facility]Come[facility] on above:Order Comment: TEST CBC WAS CANCELLED, 04/04/2018 03:39 No specimen received.Performed By: #### CBC ####[id number], [place] [address]VRC Auto Entitic volume (RBC) CanceledOwatonna ClinicComeaton rapids medical center on above:Order Comment: TEST CBC WAS CANCELLED, 04/04/2018 03:39 No specimen received.Performed By: #### CBC ####[id number], [place] [address]Slbalrpin RBC/100 WBC Ratio (Bld) CanceledOwatonna ClinicComeaton rapids medical center on above:Order Comment: TEST CBC WAS CANCELLED, 04/04/2018 03:39 No specimen received.Performed By: #### CBC ####[id number], [place] [address]Eewugzwtl Auto #/vol (Bld)Canceled NormalHealthSouth - Rehabilitation Hospital of Toms RiverComment on above:Order Comment: TEST CBC WAS CANCELLED, 04/04/2018 03:39 No specimen received.Performed By: #### CBC ####[id number], [place] [address]YXC Auto #/vol (Bld)CanceledNormal [facility] T[facility] RiverComment on above:Order Comment: TEST CBC WAS CANCELLED, 04/04/2018 03:39 No specimen received.Performed By: #### CBC ####[id number], [place] [address]INJ Auto #/vol (Bld)CanceledNormal [facility] RiverComment on above:Order Comment: TEST CBC WAS CANCELLED, 04/04/2018 03:39 No specimen received.Performed By: #### CBC ####[id number], [place] [address]Lppzcagzlcz distribution width Auto Ratio (RBC)12.4 %Xwizis31.5 - 14.5[facility] Toms RiverComment on above: Performed By: #### EMRAD ####NO LOCATION NEEDEDHematocrit Auto Volume Fraction (Bld)26.8 %Low41.0 - 52.0[facility] T[facility] RiverComment on above:Performed By: #### EMRAD ####NO LOCATION NEEDEDHemoglobin mass conc (Bld)9.0 g/dLLow13.5 - 17.5[facility] T[facility] RiverComment on above:Performed By: #### EMRAD ####NO LOCATION NEEDEDMCHC Auto mass conc (RBC)33.6 g/pCNasggk32.0 - 36.0[facility] T[facility] RiverComment on above:Performed By: #### EMRAD ####NO LOCATION NEEDED MCV Auto Entitic volume (RBC)93 sWFauhrf82 - 100[facility] Comment on above:Performed By: #### EMRAD ####NO LOCATION NEEDEDNucleated RBC/100 WBC Ratio (Bld)0.0 /100 WBCNormal0.0-0.0[facility] Comment on above:Performed By: #### EMRAD ####NO LOCATION NEEDEDPlatelets Auto #/vol (Bld)168 10*3/aVForwrr533 - 450[facility] T[facility] RiverComment on above:Performed By: #### EMRAD ####NO LOCATION NEEDEDRBC Auto #/vol (Bld)2.89 x10E12/LLow4.50 - 5.90[facility] T[facility] RiverComment on above:Performed By: #### EMRAD ####NO LOCATION NEEDEDWBC Auto #/vol (Bld)9.9 10*3/uLNormal4.4 - 11.3 [facility] RiverComment on above:Performed By: #### EMRAD ####NO LOCATION NEEDEDCBC AND DIFFERENTIALon 04-04-2018% AUTOMATED IMMATURE GRAN0.9 % Normal0.0 - 0.9[facility] T[facility] RiverComment on above:Result Comment: Percent differential counts (%) should be interpreted in the context of the absolute cell counts (cells/L).Performed By: #### CBC ####[id number] [place] [address]% APCCHCYSFB68.2 %Phflmn42.0 - 80.0[facility] T[facility] RiverComment on above:Performed By: #### CBC ####[id number], [place] [address]Ctisjauxa/100 WBC Auto (Bld)0.8 %Normal0.0 - 2.0[facility] T[facility] RiverComment on above:Performed By: #### CBC ####[id number], [place] [address]Bykmshfug/100 WBC Auto (Bld)0.07 x10E9/LNormal0.00 - 0.10[facility] RiverComment on above:Performed By: #### CBC ####[id number], [place] [address]Tisbtdjdrfd Auto #/vol (Bld)0.56 10*3/uLNormal0.00 - 0.70[facility] RiverComment on above:Performed By: #### CBC ####[id number], [place] [address]Grmfosrdtzj/100 WBC Auto (Bld)6.0 %Normal0.0 - 6.0[facility] RiverComment on above: Performed By: #### CBC ####[id number], [place] [address]Wbemxsdlrfk distribution width Auto Ratio (RBC)12.6 %Ltrqjb09.5 - 14.5[facility] RiverComment on above:Performed By: #### CBC ####[id number], [place] [address]Fzkfkebtae Auto Volume Fraction (Bld)26.6 %Low41.0 - 52.0 [facility] RiverComment on above:Performed By: #### CBC ####[id number], [place] [address]Eqdjhpyxvb mass conc (Bld)9.0 g/dL Low13.5 - 17.5[facility] T[facility] RiverComment on above:Performed By: #### CBC ####[id number], [place] [address]Zcbraqvvdnn Auto #/vol (Bld)1.96 10*3/uLNormal1.20 - 4.80[facility] RiverComment on above:Performed By: #### CBC ####[id number], [place] [address]Vtlhwoieghe/100 WBC Auto (Bld)21.0 %Kttnwn08.0 - 44.0[facility] T[facility] RiverComment on above: Performed By: #### CBC ####[id number], [place] [address]UMZT Auto mass conc (RBC)33.8 g/oAGzlivk99.0 - 36.0[facility] RiverComment on above:Performed By: #### CBC ####[id number], [place] [address]NAJ Auto Entitic volume (RBC)91 xLAddjuc08 - 100[facility] T[facility] RiverComment on above:Performed By: #### CBC ####[id number] [place] [address] Monocytes Auto #/vol (Bld)0.85 10*3/uLNormal0.10 - 1.00[facility] RiverComment on above:Performed By: #### CBC ####[id number], [place] [address]Rtqwwefec/100 WBC Auto (Bld)9.1 %Normal2.0 - 10.0[facility] RiverComment on above:Performed By: #### CBC ####[id number], [place] [address]Numltygwypy Auto #/vol (Bld)5.81 10*3/uLNormal1.20 - 7.70[facility] RiverComment on above:Performed By: #### CBC ####[id number], [place] [address]Pcktbupve RBC/100 WBC Ratio (Bld) 0.0 /100 WBCNormal0.0-0.0[facility] RiverComment on above:Performed By: #### CBC ####[id number], [place] [address]Nlhxcctmp Auto #/vol (Bld)173 10*3/yHAfmvsw154 - 450[facility] T[facility] RiverComment on above: Performed By: #### CBC ####[id number], [place] [address]GFO Auto #/vol (Bld)2.93 x10E12/LLow4.50 - 5.90[facility] RiverComment on above:Performed By: #### CBC ####[id number], [place] [address]IJY Auto #/vol (Bld)9.3 10*3/uLNormal4.4 - 11.3[facility] RiverComment on above:Performed By: #### CBC ####[id number] [place] [address] COAGULATION SCREENon 71-15-8852aRDR Coag time (Bld)79 sHigh28 - 38[facility] CenterComment on above:Result Comment: Note new reference range as of 03/10/2018. THE APTT IS NO LONGER USED FOR MONITORING UNFRACTIONATED HEPARIN THERAPY. FOR MONITORING HEPARIN THERAPY, USE THE HEPARIN ASSAY.Performed By: #### CBC ####[id number], [place] [address]BQB Coag RelTime (PPP)1.4 {INR}High0.9 - 1.1[facility] RiverComment on above:Performed By: #### CBC ####[id number], [place] [address]Ovwzajtycen time (PT) Coag time (PPP)15.3 sHigh9.7 - 12.7[facility] T[facility] RiverComment on above:Result Comment: Note new reference range as of 03/10/2018.Performed By: #### CBC ####[id number], [place] [address]Rbdve Progress Note-Cardiac Surgery on 90-41-1239Gbcfblb mass concService: Cardiac Surgery Subjective Data:DON ELKINS is a 67 year old Male who is Hospital Day # 18and POD #4 for CABGx 3;-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 Overnight Events: Patient had an uneventful night.Additional Information:Patient eager to go home, I explained to patient we are bridging heparin tocoumadin and it could take a couple more days;patient in understanding;patient feeling well, no complaints overnight Objective Data: Objective Information: T IETIYuB8Wopqb34.69473523/7595%Date/Time04/04 14: 14: 14: 14: 14:42Range(36C - 36.8C ) (67 - 75 ) (16 - 20 ) (117 - 128 )/ (69 - 76 ) (93% -97% ) As of 04-Apr-2018 04:41:00, patient is on 2 L/min of oxygen via nasal cannula. Pain with Activity reported at 04/04 8:15: 0Pain at Rest reported at 04/04 8:15: 0 Phfyvsz40/17 4:41: Weight in kg (Weight (kg)) 109.911 4:41: Weight in lbs ((lbs)) 242.5 ---- Intake and Output -----Mn/Dy/Year AiayDvpluoGbvdaxMohUyv90, 2018 2:00 [id number] 2017 6:00 [id number] 2017 10:00 [id number] The Intake and Output Totals for the last 24 hours are:WrhkdgWbzavdYue719704-59 Physical Exam: Constitutional: lying in bed; NAD, cooperativeEyes: sclera clearENMT: mucous membranes moistHead/Neck: neck suppleRespiratory/Thorax: nonlabored; fair inspir effort and cough; occas loosesounding cough; mildly diminished basessternum stableCTs x 2 removed on exam 04/03Cardiovascular: RRR; TELE - SR 70s; 04/02 8 beatNSVT notedwires to temp pacer A60, no pacing notedGastrointestinal: obese; soft; NT/ND; BS+; BM 04/04Genitourinary: voiding per urinal; no dysuriaMusculoskeletal: MAEExtremities: trace BLE edema; well perfusedNeurological: awake; A&Ox4; no focal defPsychological: Appropriate mood and behaviorSkin: warm and dryINCISIONS: midsternal, leg DIRECTOR MUSEUM OR ZOO, well approx, w/o s/s infection Medication: Medications: Continuous Medications 1. Heparin 25,000 units/ D5W 250 mL Infusion..: 2000 units/hr IntraVenous Scheduled Medications 1. Aspirin Enteric Coated: 81 mg Oral Daily2. Atorvastatin: 40 mg Oral Daily3. Citalopram (CELEXA): 20 mg Oral D aily4. Docusate: 100 mg Oral 2 Times a Day5. Furosemide Injectable: 20 mg IntraVenous Push 2 Times a Day6. hydrALAZINE: 25 mg Oral Every 8 Hours7. Hydrocortisone: 20 mg Oral 8. Hydrocortisone: 10 mg Oral 9. Insulin Glargine (Lantus) Injectable: 20 unit(s) SubCutaneous At Bedtime 10. Insulin Lispro ( HumaLOG) Injectable: 6 unit(s) SubCutaneous 3 Times aDay Before Meals11. Insulin Lispro Mild Corrective Scale: unit(s) SubCutaneous 3 Times a DayBefore Meals12. Iron Polysaccharide Complex: 150 mg Oral Daily13. Levothyroxine: 150 microgram(s) Oral Daily14. Lidocaine 5% TransDermal: 1 patch TransDermal Every 24 Hours15. Metoprolol Tartrate: 50 mg Oral Every 8 Hours16. Multivitamin with Minerals: 1tablet(s) Oral Daily17. Pantoprazole: 40 mg Oral Daily18. Polyethylene Glycol: 17 gram(s) Oral 3 Times a Day19. rOPINIRole (REQUIP XL) Extended Release: 8 mg Oral Daily20. Warfarin: 5 mg Oral Daily PRN Medications 1. Bisacodyl Rectal: 10 mg Rectal Daily2. Dextrose 50% in Water Injectable: 25 gram(s) IntraVenous Push Every 34Szlbckm7. Glucagon Injectable: 1 mg IntraMuscular Every 15 Minutes4. Ondansetron Injectable: 4 mg IntraVenous Push Every 6 Hours5. oxyCODONEImmediate Release: 5 mg Oral Every 4 Hours6. oxyCODONE Immediate Release: 10 mg Oral Every 4 Hours R ecent Lab Results: Results: I have reviewed these laboratory results: Glucose_POCT Trending View [id number]-Zww-3718 15:59:00 04-Apr-2018 12:39:00 04-Apr-2018 07:30:00Glucose-YWQP078 H 248 H 207 H Coagulation Screen 04-Apr-2018 13:49:00 ResultValueProthrombin Time, Plasma 15.3 HInternational Normalized Ratio, Plasma 1.4 HActivated Partial Thromboplastin Time 79 H Complete Blood Count + Bnogcvimixua98-Fud-7702 02:57:00 ResultValueWhite Blood Cell Count 9.3Nucleated Erythrocyte Count 0.0Red Blood Cell Count 2.93 LHGB 9.0 LHCT 26.6 LMCV 91MCHC 33.8PLT 173RDW-CV 12.6Neutrophil % 62.2Immature Granulocytes % 0.9Lymphocyte % 21.0Monocyte % 9.1Eosinophil % 6.0Basophil % 0.8Neutrophil Count 5.81Lymphocyte Count 1.96Monocyte Count 0.85Eosinophil Count 0.56Basophil Count 0.07 Renal Function Panel 04-Apr-2018 02:57:00 ResultValueGlucose, Serum 131 HNA 133 LK 3.8CL 97 LBicarbonate, Serum 27Anion Gap,Serum 13BUN 26 HCREAT 1.24GFR- Non 58 AGFR- 70Calcium, Serum 8.3 LPhosphorus, Serum 2.9ALB 3.2 L Magnesium, Serum 04-Apr-2018 02:57:00 ResultValueMagnesium, Serum 1.88Heparin assay, UFH 04-Apr-2018 02:57:00 ResultValueHeparin assay, UFH 0.5 Radiology Results: Results: Impression: 1. Trace right apical pneumothorax, stable to slightly improved fromprior.2. Stable enlargement of cardiomediastinal silhouette similarbibasilar atelectasis and trace pleural effusions,better seen onlateral projection. 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 [place]. He as found to havebilatPEs, was started on Heparin gtt, and transferred to [facility]. He wasfound to have a troponin leak at 2.25. Cardiology was consulted and the patientwas diagnosed with ACS, NSTEMI. He underwent a TTE and cath. He had normal EF,mild AI, and triple vessel CAD so was transferred to [facility] for CABG eval.Pulm consulted for PE workup. Pt required unfractionated heparin infusion for7-10 days to take advantage of intrinsic fibrinolysis and clot stabilization,as well as an IVC filter.Endocrine consulted for evaluation of [place] disease and treatment periop.Also managed DM. 03/23/2018 OPERATION/PROCEDURE: by Severiano Gonzalezerior vena cava filter. 03/31/18 OPERATION/PROCEDURE: by Dr. Hernandez x 3; LIMAto LAD, SVG to PDA, SVG to DiagEndoscopic harvest of right saphenous vein CTICU course: HTN, endo following for DM and [place]'s disease, insulin gtt;one CT with air leak [...] 04/04 changed to 75 mg PO BID jfckhtlu95/18 Acute postop blood loss anemia- hct 26.6, 28.5- MV, 1 monthiron- daily CBC Postop thrombocytopenia- plts 173, 144, 130, 122- daily cbc Postop Volume/Electrolyte status - preop wt 106.8 ; EF normal- wt 109.9, 109.8- 04/02 received 40mg oral Lasix- 04/03 adding 20mg IV Lasix daily for am- 04/04 increased Lasix to BID- adjust diuresis as needed for postop card iac surgery hypervolemia- replete electrolytes for hypokalemia/hypomagnesemia/hypophosphatemia asneeded - 04/03 replaced K, 04/04 replaced K and Mg Endo - h/o [place]'s disease, DM, hypothyroidism- Appreciate endo recs, now have signed off as of 04/04- hydrocortisone taper ordered as per Endo recs for Brigida's- starting fludrocortisone 4 days per week on 04/06 as per Endo recs forAddison's- adjusting DM regimen as per Endo recs- continue levothyroxine- DM diet, accuchecks, SSI Unprovoked bilatPE's preop- Pulm consult evaluated pt preop: surgery [...] cardiac surgery and transitionto DOAC if tolerated andno substantial bleeding risk from surgery. If bleedingremains [...] heparin; stopped 04/03 when added heparin gtt- SCD's/Elisabeth laue Disp- PT evaluation - home PT- anticipate discharge early the week of 04/06- plan home advisor and PT- continue to assess discharge needs Signature/Cosignature/Attestation:Provider/Team Contact Info-Pager Numbercardiac surgery [phone] Electronic Signatures:Alexandra Milligan (PAC) (Signed 04-Apr-2018 17:36)Authored: Service, Subjective Data, Objective Data, Assessment and Plan,Signature/Cosignature/Attestation Last Updated: 04-Apr-2018 17:36 by Alexandra Milligan (PAC)[facility] ClinicDaily Progress Note-Endocrinologyon 78-04-9808Tanvaus mass concConsult Type: subsequent visit/care Service: Endocrinology Subjective Data:DON ELKINS is a 67 yearold Male who is Hospital Day # 18 and POD #4 for CABGx 3;-REIS to LAD;-SVG to PDA;- SVG to Diag ;Endoscopic harvest of rightsaphenous vein. denies any nausea, vomiting and diarrhea. Objective Data: Objective Information: ---- Intake and Output -----Mn/Dy/Year TimeIntakeOutputNetNov 2017 6:00 [id number] 2017 10:00 [id number] 2017 2:00 [id number] The Intake and Output Totals for the last 24 hours are:JcnqrlFphenhWmc190009-536L PHIVNfT9Tcnsk86.23793691/7693%Date/Time04/04 7: 7: 7: 7: 7:24Range(36.1C - 36.8C [...] PRN4. Ondansetron Injectable: 4 mg IntraVenous Push Every6 Hours PRN5. rOPINIRole (REQUIP XL) Extended Release: 8 mg Oral Daily COAGULATION MODIFIERS: 1. Heparin 25,000 units/ D5W 250 mL Infusion..: 2000 units/hr IntraVenous 2. Warfarin: 5 mg Oral Daily GASTROINTESTINAL AGENTS: 1. Bisacodyl Rectal: 10 mg Rectal Daily PRN2. Docusate: 100 mg Oral 2 Times aDay3. Polyethylene Glycol: 17 gram(s) Oral 3 Times [...] unit(s) SubCutaneous 3 Times a DayBefore Meals4. Ator vastatin: 40 mg Oral Daily5. Dextrose 50% in Water Injectable: 25 gram(s) IntraVenous Push Every 15Minutes PRN6. Glucagon Injectable: 1 mg IntraMuscular Every 15 Minutes PRN NUTRITIONAL PRODUCTS: 1. Iron Polysaccharide Complex: 150 mg Oral Daily2. Multivitamin with Minerals: 1 tablet(s) Oral Daily P SYCHOTHERAPEUTIC AGENTS: 1. Citalopram (CELEXA): 20 mg Oral Daily TOPICAL AGENTS: 1. Lidocaine 5% TransDermal: 1 patch TransDermal Every 24 Hours Recent Lab Results: Results: I have reviewed these laboratory results: Glucose_POCT Trending View Tmipsd28-Ovn-5250 07:30:00 03-Apr-2018 22:08:00 03-Apr-2018 18:12:00 03-Apr-2018 11:22:00Glucose-FIAD043 H 192 H 294 H 151 H Complete Blood Count + Differential 04-Apr-2018 02:57:00 ResultValueWhite Blood Cell Count 9.3Nucleated Erythrocyte Count 0.0Red Blood Cell Count 2.93 LHGB 9.0 LHCT 26.6 LMCV 91MCHC 33.8PLT 173RDW-CV 12.6Neutrophil % 62.2Immature Granulocytes % 0.9Lymphocyte % 21.0Monocyte % 9.1Eosinophil % 6.0Basophil % 0.8Neutrophil Count 5.81Lymphocyte Count 1.96Monocyte Count 0.85Eosinophil Count 0.56Basophil Count 0.07 Renal Function Panel Trending View Rqgijp43-Akc-9007 02:57:00 03-Apr-2018 21:03:00Glucose, Htovq260 H 198 UGK571 L 132 LK3.8 4.3CL97 L 97 LBicarbonate, Serum27 26Anion Gap, Serum13 26DDB49 H 27 HCREAT1.24 1.30GFR-Non Nuqqrtmz42 A 55 AGFR- Ljgkivzb84 67Calcium, Serum8.3 L 8.3 LPhosphorus, Serum2.9 2.7ALB3.2 [...] who has a past medicalhistory of HTN, HLD,T2DM, Brigida's disease, hypothyroidism, COPD, AKASH onCPAP, prostate ca s/p prostatectomy in 2011, and psoriasis who [facility] from [facility] on forCA eval.Endocrine consulted fr evaluation of Brigida disease and treatment periop Patient was on supra-therapeutic dose of HCT 20-0-20 , fludrocortisone 0.1 ,mgdailyPatient has uncontrolled HTN and uncontrolled BSIVC filter placed on abg 03/31 1. [place]'s Disease- HC taper as below04/04- make HCt [...] weekly ( and Friday) on 04/06 2. Y4LG-emgwzhga Glargine 20 units QHS and Lispro 6 TIDAC-ISS correction 2 units per 50 >150 Will sign off, page or call with questionsAbove was communicated to primary team Patient was seen, examined and discussed with Domingo Signature/Cosignature/Attestation:Attending AttestationI saw and evaluated the patient. I [...] patient (as noted in the above attestation) [id number] Electronic Signatures:Shanda Rose (Fellow)) (Signed 04-Apr-2018 13:07)Authored: Service, Subjective Data, Objective Data, Assessment and Plan,Signature/Cosignature/AttestationLeighton Yin) (Signed 06-Apr-2018 12:54)Authored: Sig nature/Cosignature/AttestationCo-Signer: Service, Subjective Data, Objective Data Last Updated: 06-Apr-2018 12:[address])[facility]watonna ClinicGLUCOSE-POCTon 30-87-9280Ensevlj mass zihb801 mg/dLHigh [address] [place], [place] [address]Comment on above:Performed By: #### CBC ####[id number], [place] [address]Bhbbmjx mass seok236 mg/eDOyxh8622 Wilson StreetComment on above:Performed By: #### CBC ####[id number], [place] [address]Sjjogew mass adzw616 mg/jZXjok1922 Wilson StreetComment on above:Performed By: #### CBC ####[id number], [place] [address]Ntnhooi mass idwv804 mg/wFYylm9122 Wilson StreetComment on above:Performed By: #### EMRAD ####NO LOCATION NEEDEDHEPARIN ASSAY,UFHon 52-33-2765DYYOQDB ASSAY,UFH0.5 IU/mLNCook HospitalComment on above:Result Comment: The therapeutic reference range for UFH may be either 0.3-0.6 IU/mL or 0.3-0.7 IU/mL based on the clinical setting for anticoagulant therapy and the associated nomogram used. For heparin dosing guidelines based on clinical scenario and Heparin Assay results, please refer to local Pharmacy and the [facility] Guidelines for Anticoagulation therapy available on the [facility] intranet at:[email or web address]_Guide lines_for_Anticoagu.aspxPerformed By: #### CBC ####[id number], [place] [address]APPRFBG ASSAY,UFH0.5 IU/mLNormalHealthSouth - Rehabilitation Hospital of Toms RiverComment on above:Result Comment: The therapeutic reference range for UFH may be either 0.3-0.6 IU/mL or 0.3-0.7 IU/mL based on the clinical setting for anticoagulant therapy and the associated nomogram used. For heparin dosing guidelines based on clinical scenario and Heparin Assay results, please refer to local Pharmacy and the [facility] Guidelines for Anticoagulation therapy available on the [facility] intranet at:[email or web address]_Guide lines_for_Anticoagu.aspxPerformed By: #### EMRAD ####NO LOCATION NEEDEDMAGNESIUM on 52-89-3391Mvxsnvrsm mass conc1.88 mg/dLNormal1.60 - 2.40[facility] Toms RiverComment on above:Performed By: #### CBC ####[id number], [place] [address]CUDVK FUNCTION PANELon 74-21-0057Kpreqvs mass conc CanceledOwatonna ClinicComment on above:Order Comment: TEST RENAL FUNCTION PANEL WAS CANCELLED, 04/04/2018 18:30 ?Cancel Reason:Cancelled. Performed By: #### CBC ####[id number], [place] [address]Fibxp gap 3 molar concCancelOwatonna ClinicComment on above:Order Comment: TEST RENAL FUNCTION PANEL WAS CANCELLED, 04/04/2018 18:30 ?Cancel Reason:Cancelled.Performed By: #### CBC ####[id number], [place] [address]Qulxyak mass concCanceledOwatonna ClinicComment on above: Order Comment: TEST RENAL FUNCTION PANEL WAS CANCELLED, 04/04/2018 18:30 ?Cancel Reason:Cancelled.Performed By: #### CBC ####[id number], [place] [address]Cxwarkud molar concCancelOwatonna ClinicComment on above:Order Comment: TEST RENAL FUNCTION PANEL WAS CANCELLED, 04/04/2018 18:30 ?Cancel Reason:Cancelled.Performed By: #### CBC ####[id number], [place] [address]Vrdjrpdlec mass concCancelOwatonna ClinicComment on above:Order Comment: TEST RENAL FUNCTION PANEL WAS CANCELLED, 04/04/2018 18:30 ?Cancel Reason:Cancelled.Performed By: #### CBC ####[id number], [place] [address]NGK-HDDIQPU AM.CancelOwatonna ClinicComment on above:Order Comment: TEST RENAL FUNCTION PANEL WAS CANCELLED, 04/04/2018 18:30 ?Cancel Reason:Cancelled.Result Comment: CALCULATIONS OF ESTIMATED GFR ARE PERFORMED USING THE MDRD STUDY EQUATION FOR THE IDMS-TRACEABLE CREATININE METHODS. CLIN CHEM 2007;53:766-72Performed By: #### CBC ####[id number], [place] [address]CNN-XMY AM.CancelOwatonna ClinicComeaton rapids medical center on above:Order Comment: TEST RENAL FUNCTION PANEL WAS CANCELLED, 04/04/2018 18:30 ?Cancel Reason:Cancelled.Performed By: #### CBC ####[id number], [place] [address]Zmcjkvy mass concCanceled Owatonna ClinicComment on above:Order Comment: TEST RENAL FUNCTION PANEL WAS CANCELLED, 04/04/2018 18:30 ?Cancel Reason:Cancelled. Performed By: #### CBC ####[id number], [place] [address]LVM0 molar conc (Bld)CancelOwatonna ClinicComment on above:Order Comment: TEST RENAL FUNCTION PANEL WAS CANCELLED, 04/04/2018 18:30 ?Cancel Reason:Cancelled.Performed By: #### CBC ####[id number], [place] [address]Evdalwrtf mass concCancelOwatonna ClinicComment on above:Order Comment: TEST RENAL FUNCTION PANEL WAS CANCELLED, 04/04/2018 18:30 ?Cancel Reason:Cancelled.Result Comment: The performance characteristics of phosphorus testing in heparinized plasma have been validated by the individual laboratory site where testing is performed. Testing on heparinizedplasma is not approved by the FDA; however, such approval is not necessary.Performed By: #### CBC ####[id number], [place] [address]Uxmtdwvxq molar conc CancelOwatonna ClinicComment on above:Order Comment: TEST RENAL FUNCTION PANEL WAS CANCELLED, 04/04/2018 18:30 ?Cancel Reason:Cancelled. Performed By: #### CBC ####[id number], [place] [address]Vraxdx molar concCancelOwatonna ClinicComment on above:Order Comment: TEST RENAL FUNCTION PANEL WAS CANCELLED, 04/04/2018 18:30 ?Cancel Reason:Cancelled.Performed By: #### CBC ####[id number], [place] [address]Zndb nitrogen mass concCanceledOwatonna ClinicComment on above:Order Comment: TEST RENAL FUNCTION PANEL WAS CANCELLED, 04/04/2018 18:30 ?Cancel Reason:Cancelled.Performed By: #### CBC ####[id number], [place] [address]Gwmoxdg mass conc3.2 g/dLLow3.4 - 5.0[facility] Toms RiverComment on above:Performed By: #### CBC ####[id number], [place] [address]Ivuzc gap 3 molar conc13 mmol/DSslusx10 - 20[facility] Toms RiverComment on above:Performed By: #### CBC ####[id number], [place] [address]Oqgmmrg mass conc8.3 mg/dLLow8.6 - 10.6[facility] Toms RiverComment on above:Performed By: #### CBC ####[id number], [place] [address]Ndptgdxy molar conc97 mmol/LLow98 - 107[facility] Toms RiverComment on above:Performed By: #### CBC ####[id number], [place] [address]Plfedwmcat mass conc1.24 mg/dLNormal0.50 - 1.30[facility] Toms RiverComment on above:Performed By: #### CBC ####[id number], [place] [address]ICJ-PHOAPKP AM.70 mL/min/1.41f0Zdxqcr>60[facility] Toms RiverComment on above:Result Comment: CALCULATIONS OF ESTIMATED GFR ARE PERFORMED USING THE MDRD STUDY EQUATION FOR THE IDMS-TRACEABLE CREATININE METHODS. CLIN CHEM 2007;53:766-72Performed By: #### CBC ####[id number], [place] [address]AXD-EXO AM.58 mL/min/1.73m2 Abnormal>60[facility] Toms RiverComment on above:Performed By: #### CBC ####[id number], [place] [address]Jqtmwxl mass ffqt227 mg/iYUwau29 - 99[facility] Toms RiverComment on above:Performed By: #### CBC ####[id number], [place] [address]XUR8 molar conc (Bld)27 mmol/L Rbytkd86 - 32[facility] Toms RiverComment on above:Performed By: #### CBC ####[id number], [place] [address]Wnjmflahf mass conc2.9 mg/dLNormal 2.5 - 4.9[facility] Toms RiverComment on above:Result Comment: The performance characteristics of phosphorus testing in heparinized plasma have bee n validated by the individual laboratory site where testing is performed. Testing on heparinizedplasma is not approved by the FDA; however, such approval is not necessary.Performed By: #### CBC ####[id number], [place] [address]Dmdvlromf molar conc3.8 mmol/LNormal3.5 - 5.3[facility] Comment on above:Performed By: #### CBC ####[id number], [place] [address]Eymiza molar idma695 mmol/TRou817 - 145[facility] Toms RiverComment on above:Performed By: #### CBC ####[id number] [place] [address] Urea nitrogen mass conc26 mg/dLHigh6 - 23[facility] Toms RiverComment on above:Performed By: #### CBC ####[id number] [place] [address] Albumin mass conc3.2 g/dLLow3.4 - 5.0[facility] Toms RiverComment on above:Performed By: #### EMRAD ####NO LOCATION NEEDEDAnion gap 3 molar conc13 mmol/FOvnamv22 - 20[facility] Toms RiverComment on above:Performed By: #### EMRAD ####NO LOCATION NEEDEDCalcium mass conc8.3 mg/dLLow8.6 - 10.6[facility] Toms RiverComment on above:Performed By: #### EMRAD ####NO LOCATION NEEDEDChloride molar conc97 mmol/LLow98 - 107[facility] Toms RiverComment on above:Performed By: #### EMRAD ####NO LOCATION NEEDEDCreatinine mass conc1.30 mg/dLNormal0.50 - 1.30[facility] Toms RiverComment on above: Performed By: #### EMRAD ####NO LOCATION NEEDEDGFR- AM.67 mL/min/1.73m2 Normal>60[facility] Toms RiverComment on above:Result Comment: CALCULATIONS OF ESTIMATED GFR ARE PERFORMED USING THE MDRD STUDY EQUATION FOR THE IDMS-TRACEABLE CREATININE METHODS. CLIN CHEM 2007;53:766-72Performed By: #### EMRAD ####NO LOCATION NEEDEDGFR-NON AM.55 mL/min/1.69y7Kgjjwljm>60 [facility] Toms RiverComment on above:Performed By: #### EMRAD ####NO LOCATION NEEDEDGlucose mass ijpq117 mg/vMIjpi95 - 99[facility] Comment on above:Performed By: #### EMRAD ####NO LOCATION NEEDEDHCO3 molar conc (Bld)26 mmol/JFjtunb39 - 32[facility] Toms RiverComment on above:Performed By: #### EMRAD ####NO LOCATION NEEDEDPhosphate mass conc2.7 mg/dLNormal2.5 - 4.9 [facility] Toms RiverComment on above:Result Comment: The performance characteristics of phosphorus testing in heparinized plasma have been validated by the individual laboratory site where testing is performed. Testing on heparinizedplasma is not approved by the FDA; however, such approval is not necessary.Performed By: #### EMRAD ####NO LOCATION NEEDEDPotassium molar conc4.3 mmol/LNormal3.5 - 5.3[facility] Toms RiverComment on above:Performed By: #### EMRAD ####NO LOCATION NEEDEDSodium molar fphq827 mmol/AQer611 - 145[facility] Toms RiverComment on above:Performed By: #### EMRAD ####NO LOCATION NEEDEDUrea nitrogen mass conc27 mg/dLHigh6 - 23[facility] Toms RiverComment on above:Performed By: #### EMRAD ####NO LOCATION NEEDEDTH CHEST 2 VIEW PA AND LATon 27-19-7255YV CHEST 2 VIEW PA AND LATMRN: [id number] Name: DON ELKINS STUDY:CHEST 2 VIEW PA AND LAT; 04/04/2018 6:45 am INDICATION: Signs/Symptoms: postop cardiac surgery. COMPARISON:Chest radiograph from 04/03/2018 ORDERING CLINICIAN:MARY MUNROE FINDINGS:Status post median sternotomy. The cardiomediastinal silhouette is persistently enlarged andunchanged from prior. Trace right apical pneumothorax, stable to slightly improved fromprior. Better inspiratory effort on present examination. No frankpulmonary edema. Bandlike left basilar retrocardiac atelectasis.Trace bibasilar pleural effusions, better seen on lateral projection. No acute osseous abnormality. IMPRESSION:1. Trace right apical pneum othorax, stable to slightly improved fromprior.2. Stable enlargement of cardiomediastinal silhouette similarbibasilar atelectasis and trace pleural effusions, better seen onlateral projection. Electronically signed by: Luca TATEHealthsouth - [facility] Hospital Of UnionCBUn[facility] Nash 43-94-8230Esszwjuuusg distribution width Auto Ratio (RBC)13.0 %Fqtgxr37.5 - 14.5[facility] Toms RiverComment on above:Performed By: #### EMRAD ####NO LOCATION NEEDEDHematocrit Auto Volume Fraction (Bld)28.5 %Low41.0 - 52.0[facility] Toms RiverComment on above:Performed By: #### EMRAD ####NO LOCATION NEEDEDHemoglobin mass conc (Bld)9.6 g/dLLow13.5 - 17.5[facility] Toms RiverComment on above:Performed By: #### EMRAD ####NO LOCATION NEEDEDMCHC Auto mass conc (RBC)33.7 g/dLNormal 32.0 - 36.0[facility] Toms RiverComment on above:Performed By: #### EMRAD ####NO LOCATION NEEDEDMCV Auto Entitic volume (RBC)93 hCBdkfsh36 - 100[facility] Toms RiverComment on above:Performed By: #### EMRAD ####NO LOCATION NEEDEDNucleated RBC/100 WBC Ratio (Bld)0.0 /100 WBCNormal0.0-0.0[facility] Toms RiverComment on above:Performed By: #### EMRAD ####NO LOCATION NEEDEDPlatelets Auto #/vol (Bld)130 10*3/xPCtf657 - 450[facility] Toms RiverComment on above:Performed By: #### EMRAD ####NO LOCATION NEEDED RBC Auto #/vol (Bld)3.08 x10E12/LLow4.50 - 5.90[facility] Comment on above:Performed By: #### EMRAD ####NO LOCATION NEEDEDWBC Auto #/vol (Bld)10.9 10*3/uLNormal4.4 - 11.3[facility] RiverComment on above: Performed By: #### EMRAD ####NO LOCATION NEEDEDCBC AND DIFFERENTIALon 04-03-2018 % AUTOMATED IMMATURE GRAN0.6 %Normal0.0 - 0.9[facility] RiverComment on above:Result Comment: Percent differential counts (%) should be interpreted in the context of the absolute cell counts (cells/L).Performed By: #### EMRAD ####NO LOCATION NEEDED% EPPFSKHILV00.9 %Toxjlw45.0 - 80.0[facility] RiverComment on above:Performed By: #### EMRAD ####NO LOCATION NEEDED Basophils/100 WBC Auto (Bld)0.07 x10E9/LNormal0.00 - 0.10[facility] RiverComment on above:Performed By: #### EMRAD ####NO LOCATION NEEDED Basophils/100 WBC Auto (Bld)0.7 %Normal0.0 - 2.0[facility] Comment on above:Performed By: #### EMRAD ####NO LOCATION NEEDEDEosinophils Auto #/vol (Bld)0.67 10*3/uLNormal0.00 - 0.70[facility] RiverComment on above:Performed By: #### EMRAD ####NO LOCATION NEEDEDEosinophils/100 WBC Auto (Bld)7.1 %Normal0.0 - 6.0[facility] RiverComment on above:Performed By: #### EMRAD ####NO LOCATION NEEDEDErythrocyte distribution width Auto Ratio (RBC)12.8 %Lqumiz13.5 - 14.5[facility] RiverComment on above: Performed By: #### EMRAD ####NO LOCATION NEEDEDHematocrit Auto Volume Fraction (Bld)28.5 %Low41.0 - 52.0[facility] RiverComment on above:Performed By: #### EMRAD ####NO LOCATION NEEDEDHemoglobin mass conc (Bld)9.6 g/dLLow13.5 - 17.5[facility] RiverComment on above:Performed By: #### EMRAD ####NO LOCATION NEEDEDLymphocytes Auto #/vol (Bld)1.99 10*3/uLNormal1.20 - 4.80[facility] RiverComment on above:Performed By: #### EMRAD ####NO LOCATION NEEDEDLymphocytes/100 WBC Auto (Bld)21.0 %Wbpctv66.0 - 44.0[facility] RiverComment on above:Performed By: #### EMRAD ####NO LOCATION NEEDED MCHC Auto mass conc (RBC)33.7 g/lYGmpfgf61.0 - 36.0[facility] Comment on above:Performed By: #### EMRAD ####NO LOCATION NEEDEDMCV Auto Entitic volume (RBC)92 xVNuebxn52 - 100[facility] RiverComment on above: Performed By: #### EMRAD ####NO LOCATION NEEDEDMonocytes Auto #/vol (Bld)0.92 10*3/uLNormal0.10 - 1.00[facility] RiverComment on above:Performed By: #### EMRAD ####NO LOCATION NEEDEDMonocytes/100 WBC Auto (Bld)9.7 %Normal2.0 - 10.0[facility] RiverComment on above:Performed By: #### EMRAD ####NO LOCATION NEEDEDNeutrophils Auto #/vol (Bld)5.76 10*3/uLNormal1.20 - 7.70 [facility] RiverComment on above:Performed By: #### EMRAD ####NO LOCATION NEEDEDNucleated RBC/100 WBC Ratio (Bld)0.0 /100 WBCNormal0.0-0.0[facility] RiverComment on above:Performed By: #### EMRAD ####NO LOCATION NEEDEDPlatelets Auto #/vol (Bld)144 10*3/uFQzh556 - 450[facility] RiverComment on above:Performed By: #### EMRAD ####NO LOCATION NEEDED RBC Auto #/vol (Bld)3.09 x10E12/LLow4.50 - 5.90[facility] Comment on above:Performed By: #### EMRAD ####NO LOCATION NEEDEDWBC Auto #/vol (Bld)9.5 10*3/uLNormal4.4 - 11.3[facility] RiverComment on above: Performed By: #### EMRAD ####NO LOCATION NEEDEDClinical Event Note-Chest tube removalon 25-41-1671Zskkywzs Event Note-Chest tube removalEvent:Topic: Chest tube removalDetails:Remaining 2 chest tube removed at 1540 w/o difficulty. Pt tolerated procedurewell w/o immediate evidence of complication. Urgent 1v portable CXR ordered and2v ordered for am per cardiac surgery routine. Provider / Team Contact Information:Provider/Team ContactInfo-Pager Number: cardiac surgery [phone] Electronic Signatures:Mary Munroe (HEALTH AND SAFETY TECH-IRON WORKER APPRENTICE) (Signed 16:04)Authored: Event, Provider / Team Contact Information Last Updated: 03-Apr-2018 16:04 by Mary Munroe (HEALTH AND SAFETY TECH-IRON WORKER APPRENTICE)[facility] ClinicDaily Progress Note-Cardiac Surgeryon 34-23-0986Gyhlzty mass conc Service: Cardiac Surgery Subjective Data:DON ELKINS is a 67 year old Male who is Hospital Day # 17and POD #3 for CABGx 3;-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 Overnight Events: Patient had an uneventful night.Additional Information:Transferred out of CTICU yesterday Objective Data: Objective Information: ---- Intake and Output -----Mn/Dy/Year TimeIntakeOutputNetNov 2017 6:00 [id number] 2017 10:00 pf768756- 30Nov 2017 2:00 [id number] The Intake and Output Totals for the last 24 hours are:[id number] Intake Output Enteral - Oral 820 mL Urine 1180 mL IV Fluids 55 mL Chest Tubes 170 mL T JYJPZbQ2Cmeaa29.64165650/6892% Date/Time04/03 6: 6: 6: 6: 6:52Range(36C - 37.2C ) (69 - 86 ) (16 - 20 ) (108 - 134 )/ (66 - 75 ) (91% -95% ) As of 03-Apr-2018 04:00:00, patient is on 2% oxygen via nasalcannula.Highest temp of 37.2 C was recorded at 04/03 6:52 Xeobqry69/16 6:00: Weight in kg (Weight (kg)) 109.8106/03 6:00: Weight in lbs ((lbs)) 242.2 Physical Exam: Constitutional: lying in bed; NADEyes: sclera clearENMT: mucous membranes moistHead/Neck: neck suppleRespiratory/Thorax: nonlabored; fair inspir effort and cough; occas loosesounding cough; mildly diminished basessternum stableCTs x 2 to -20 wall suction; no air leak; serosang drngCardiovascular: RRR; TELE - SR 70s; 04/02 8 beat NSVTnotedwires to temp pacer A60, no pacing notedGastrointestinal: obese; soft; NT/ND; BS+; BM 04/02Genitourinary: voiding per urinal; no dysuriaMusculoskeletal: MAEExtremities: trace BLE edema; well perf usedNeurological: awake; A&Ox4; no focal defPsychological: Appropriate mood and behaviorSkin: warm and dryINCISIONS: midsternal, leg YUDI, well approx, w/o s/s infection Medication: Medications: Scheduled Medications 1. Aspirin Enteric Coated: 81 mg Oral Daily2. At orvastatin: 40 mg Oral Daily3. Citalopram (CELEXA): 20 [...] Polysaccharide Complex: 150 mg Oral Daily13. Levothyroxine: 150microgram(s) Oral Daily14. Lidocaine 5% TransDermal: 1 patch TransDermal Every 24 Hours15. Metoprolol Tartrate: 50 mg Oral Every 8 Hours16. Multivitamin with Minerals: 1 tablet(s) Oral Daily17. Pantoprazole: 40 mg Oral Daily18. Polyethylene Glycol: 17 gram(s) Oral 3 Times a Day19. rOPINIRole (REQUIP XL) Extended Release: 8 mg Oral Daily20. Warfarin: 5 mg Oral Daily PRN Medications 1. Bisacodyl Rectal: 10 mg Rectal Daily2. Dextrose 50% in Water Injectable: 25 gram(s) IntraVenous Push Every 54Acjqtvn0. Glucagon Injectable: 1 mg IntraMuscular Every 15 Minutes4. Ondansetron Injectable: 4 mg IntraVenous Push Every 6 Hours5. oxyCODONE Immediate Release: 5 mg Oral Every 4 Hours6. oxyCODONE Immediate Release: 10 mg Oral Every 4 Hours Currently Suspended Medications 1. Lisinopril: 20 mg Oral Every Night Recent Lab Results: Results:Trixie reviewed these laboratory results: Complete Blood Count + Differential 03-Apr-2018 06:57:00 ResultValueWhite Blood Cell Count 9.5Nucleated Erythrocyte Count 0.0Red Blood Cell Count 3.09 LHGB 9.6LHCT 28.5 LMCV 92MCHC 33.7PLT 144 LRDW-CV 12.8Neutrophil [...] 06:57:00 ResultValueMagnesium, Serum 1.94 Glucose_POCT Trending View Qfurnd99-Vms-8636 21:05:00 02-Apr-2018 17:14:00 02-Apr-2018 11:05:00 02-Apr-2018 07:21:00 02-Apr-2018 03:09:00Glucose-CJUY060 H 137 H 310 H 223 H 199 H Radiology Results: Results:I have reviewed this radiology result: Impression:1. Small right apical pneumothorax, slightly increased in size from the priorstudy. Continued attention on follow-up imaging is recommended.2. Stable enlargement of the cardiomediastinal silhouette without frankpulmonary edema.3. Mild bibasilar atelectasis with stable appearance of left basilar andretrocardiac opacity, which may be secondary to a small left- sided pleuraleffusion with associated atelectasis. However, superimposed consolidationcannot be fully excluded. Xray Chest 1 View [Apr 03 2018 10:33AM] Assessment and Plan:Assessment:67 yo WM with no prior history of CAD, who has a past medical history of HTN,HLD, T2DM, [place]'sdisease, hypothyroidism, COPD, AKASH on CPAP, prostate Spring/p prostatectomy in 2011, and psoriasis [facility]. [place] dys[place]. He as found to havebilat PEs, was started on Heparin gtt, and transferred to [facility]. He wasfound to have a troponin leak at 2.25. Cardiology was consulted and the patientwas diagnosed with ACS, NSTEMI. He underwent a TTE and cath. He had normal EF,mild AI, and triple vessel CAD so was transferred to [facility] for CABG eval.Pulm consulted for PE workup. Pt required unfractionated heparin infusion for7-10 days to take advantage of intrinsic fibrinolysis and clot stabilization,as well as an IVC filter.Endocrine consulted for evaluation of [place] disease and treatment periop.Also managed DM. 03/23/2018 OPERATION/PROCEDURE: by Severiano RodriguezapInferior vena cava filter. 03/31/18 OPERATION/PROCEDURE: by Dr. Hernandez x 3; REIS to LAD, SVG toPDA, SVG to DiagEndoscopic harvest of right saphenous vein CTICU course: HTN, endo following for DMand [place]'s disease, insulin gtt;one CT with air leak [...] epicardial wires prior to discharge; will need tocut ifanticoagulated- tele until discharge and optimize lytes- optimize nutrition Rhythm- SR 70s-80s- noted 8 beat NSVT 04/02 on tele review- continue BB and adjust as needed Acute postop blood loss a nemia- hct 28.5- MV, 1 month iron- daily CBC Postop thrombocytopenia- plts 144 [130, 122]- daily cbc Postop Volume/Electrolyte status - preop wt 106.8 ; EF normal- wt 109.8- received 40mg oral lasix 04/02; 04/03 adding 20mg IV lasix daily for am- adjust diuresis as needed for postop cardiac surgeryhypervolemia- replete electrolytes for hypokalemia/hypomagnesemia/hypophosphatemia asneeded - 04/03replaced K Endo - h/o [place]'s disease, DM, hypothyroidism- Endo is following, appreciate- hydrocortisone taper ordered as per Endo recs for Brigida's- starting fludrocortisone 4 days per week on 04/06 as per Endo recs forAddison's- adjusting DM regimen as per Endo recs- continue levothyroxine- DM diet, accuchecks, SSI Unprovoked bilat PE's preop- Pulm consult evaluated pt preop: surgery delayedas per pulm recs for heparinanticoagulation of appropriate interval; IVC filter placed 03/23- As perDr Yu:--- Place IVC filter electively before surgery as heparin will need to beinterrupted - can retrieve fliter in 4-6 weeks if patient can take continuousanticoagulation.--- Consideration of anticoagulation beyond 6 months duration--- Would restart unfractionated heparin after cardiac surgeryand transitionto DOAC if tolerated and no substantial bleeding risk from surgery. If bleedingremains a concern, reversible VKA etc may be a better choice.- 04/03 heparin gtt started once CTs removed as per Dr Gaston; will heparin bridgeto coumadin- plan f/u with Vascular surgery Dr Stapleton to arrange filter removal h/o HTN -adjust meds as needed h/o HLD- continue statin Neuro/Psych - h/o depression,RLS- continue home citalopram- continue home ropinirole Proph- DVT prophylaxis - subcu heparin; stopped 04/03 when added heparin gtt- SCD's/Elisabeth laue Disp- PT evaluation - home PT- anticipate discharge early the week of 04/06- plan home advisor and PT- continue to assess discharge needs Signature/Cosignature/Attestation:Provider/Team Contact Info- Pager Numbercardiac surgery [phone] Electronic Signatures:Mary Munroe (HEALTH AND SAFETY TECH- IRON WORKER APPRENTICE) (Signed 03-Apr-2018 21:30)Authored: Service, Subjective Data, Objective Data, Assessment and Plan,Signature/Cosignature/Attestation Last Updated: 03-Apr-2018 21:30 by Mary Munroe (HEALTH AND SAFETY TECH-IRON WORKER APPRENTICE)[facility] Daily Progress Note-Endocrinologyon 18-45-2737Qqhtpka mass concConsult Type: subsequent visit/care Service: Endocrinology Subjective Data:DON ELKINS is a 67 yearold Male who is Hospital Day # 17 and POD #3 for CABGx 3;-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 Objective Data: Objective Information: ---- Intake and Output -----Mn/Dy/Year TimeIntakeOutputNetNov 2017 2:00 [id number] 2017 6:00 [id number] 2017 10:00 [id number] The Intake and Output Totals for the last 24 hours are:FnhfmeQywemmEdn0957636-518X JGDVHpT7Triok81.98058932/5194%Date/Time04/03 14: 14: 14: 14: 14:40Range(36.2C - 37.2C ) (69 - 86 ) (16 - 22 ) (108 - 152 )/ (51 - 72 ) (92%- 95% ) As of 09-Ipq-375632:00:00, patient is on 2% oxygen via nasal cannula.Highest temp of 37.2 C was recorded at 04/03 6:52 Medication: Medications: Continuous Medications No continuous medications are active Scheduled Medications 1. Aspirin Enteric Coated: 81 mg Oral [...] Warfarin: 5 mg Oral Daily PRN Medications ------- 1. Bisacodyl Rectal: 10 mg Rectal Daily2. Dextrose 50% in Water Injectable: 25 gram(s) IntraVenous Push Every 06Vrqqjdl9. Glucagon Injectable: 1 mg IntraMuscular Every 15 Minutes4. Ondansetron Injectable: 4 mg IntraVenous Push Every 6 Hours5. oxyCODONE Immediate Release: 5 mg Oral Every 4 Hours6. oxyCODONE Immediate Release: 10 mg Oral Every 4 Hours Currently Suspended Medications 1. Lisinopril: 20 mg Oral Every Night Recent Lab Results: Results: I have reviewed these laboratory results: Glucose_POCT Trending View Gtldlt37-Vze-0023 11:22:00 73-Sla-013744:05:00 02-Apr-2018 17:14:00 02-Apr-2018 11:05:00 02-Apr-2018 07:21:00Glucose-BCGQ499 H 200 H 137 H 310 H [...] a past medicalhistory of HTN, HLD, T2DM, [place]'s disease, hypothyroidism, COPD, AKASH onCPAP, prostate ca s/p prostatectomy in 2011, and psoriasis who [facility] from [facility] on 03/18 forCABG marshall.Endocrine consulted fr evaluation of Brigida disease and treatment periop Patient was on supra-therapeutic dose of HCT 20-0-20 , fludrocortisone 0.1 ,mgdailyPatient has uncontrolled HTN and uncontrolled BSIVC filter placed on abg 03/31 1. [place]'s Disease- HC taper as belowon 04/03 please [...] times weekly ( and Friday) on04/06 2. N1RE--zygmroko Glargine today as : 20 units Q HS and Lispro 6 TIDAC-ISS correction to 2 units per 50 >150--Will follow Please page with questions [phone] Patient seen and examined, plan discussed with Dr Geller Electronic Signatures:Bryon Sandoval (Fellow)) (Signed 03-Apr-2018 14:47)Authored: Service, Subjective Data, Objective Data, Assessment and Plan,Signature/Cosignature/AttestationRose Mary Burrell () (Signed [id number]-[id number])Authored: Signature/Cosignature/AttestationCo-Signer: Service, Subjective Data, Objective Data, Assessment and Plan,Signature/Cosignature/Attestation Last Updated: 03-Apr-2018 18:05 by Rose Mary Burrell)[facility] ClinicGLUCOSE-POCTon 03-82-6663Bwhlopr mass egqd309 mg/wYYedd[address] [place] [address] Comment on above:Performed By: #### EMRAD ####NO LOCATION NEEDEDGlucose mass nglw798 mg/hOFjlt039[address] [place], [place] [address]Comment on above:Performed By: #### EMRAD ####NO LOCATION NEEDEDMAGNESIUMon 29-78-8101Srwovyncp mass conc 1.94 mg/dLNormal1.60 - 2.40[facility]Comment on above:Performed By: #### EMRAD ####NO LOCATION NEEDEDPT/INRon 63-21-7900TKR Coag RelTime (PPP) 1.2 {INR}High0.9 - 1.1[facility] RiverComment on above:Performed By: #### EMRAD ####NO LOCATION NEEDEDProthrombin time (PT) Coag time (PPP)13.7 sHigh 9.7 - 12.7[facility] RiverComment on above:Result Comment: Note new reference range as of 03/10/2018.Performed By: #### EMRAD ####NO LOCATION NEEDED RENAL FUNCTION PANELon 93-87-4792Fgnbnkk mass conc3.4 g/dLNormal3.4 - 5.0[facility] RiverComment on above:Performed By: #### EMRAD ####NO LOCATION NEEDEDAnion gap 3 molar conc14 mmol/BHmapyq09 - 20[facility] RiverComment on above:Performed By: #### EMRAD ####NO LOCATION NEEDEDCalcium mass conc8.5 mg/dLLow8.6 - 10.6[facility] RiverComment on above: Performed By: #### EMRAD ####NO LOCATION NEEDEDChloride molar conc95 mmol/LLow98 - 107[facility] RiverComment on above:Performed By: #### EMRAD ####NO LOCATION NEEDEDCreatinine mass conc1.32 mg/dLHigh0.50 - 1.30[facility]Comment on above:Performed By: #### EMRAD ####NO LOCATION NEEDEDGFR- AM.65 mL/min/1.34x0Zcdkmd>60[facility]Comment on above: Result Comment: CALCULATIONS OF ESTIMATED GFR ARE PERFORMED USING THE MDRD STUDY EQUATION FOR THE IDMS-TRACEABLE CREATININE METHODS. CLIN CHEM 2007;53:766-72 Performed By: #### EMRAD ####NO LOCATION NEEDEDGFR-NON AM.54 mL/min/1.16y2Trwpkqyo>60[facility]Comment on above:Performed By: #### EMRAD ####NO LOCATION NEEDEDGlucose mass ituq348 mg/kWBbpr99 - 99[facility] RiverComment on above:Performed By: #### EMRAD ####NO LOCATION NEEDEDHCO3 molar conc (Bld)28 mmol/JInktge90 - 32[facility] RiverComment on above:Performed By: #### EMRAD ####NO LOCATION NEEDEDPhosphate mass conc3.1 mg/dLNormal2.5 - 4.9[facility] RiverComment on above: Result Comment: The performance characteristics of phosphorus testing in heparinized plasma have been validated by the individual laboratory site where testing is performed. Testing on heparinizedplasma is not approved by the FDA; however, such approval is not necessary.Performed By: #### EMRAD ####NO LOCATION NEEDEDPotassium molar conc3.9 mmol/LNormal3.5 - 5.3[facility] RiverComment on above:Performed By: #### EMRAD ####NO LOCATION NEEDEDSodium molar ifja582 mmol/BDqn610 - 145[facility] RiverComment on above: Performed By: #### EMRAD ####NO LOCATION NEEDEDUrea nitrogen mass conc25 mg/dL High6 - 23[facility] RiverComment on above:Performed By: #### EMRAD ####NO LOCATION NEEDEDAlbumin mass conc3.5 g/dLNormal3.4 - 5.0[facility] RiverComment on above:Performed By: #### EMRAD ####NO LOCATION NEEDED Anion gap 3 molar conc13 mmol/JAjeqfq38 - 20[facility] RiverComment on above:Performed By: #### EMRAD ####NO LOCATION NEEDEDCalcium mass conc8.6 mg/dLNormal8.6 - 10.6[facility] RiverComment on above:Performed By: #### EMRAD ####NO LOCATION NEEDEDChloride molar conc94 mmol/LLow98 - 107[facility] RiverComment on above:Performed By: #### EMRAD ####NO LOCATION NEEDEDCreatinine mass conc1.37 mg/dLHigh0.50 - 1.30[facility] RiverComment on above:Performed By: #### EMRAD ####NO LOCATION NEEDEDGFR- AM.63 mL/min/1.12g7Ccvwax>60[facility]Comment on above: Result Comment: CALCULATIONS OF ESTIMATED GFR ARE PERFORMED USING THE MDRD STUDY EQUATION FOR THE IDMS-TRACEABLE CREATININE METHODS. CLIN CHEM 2007;53:766-72 Performed By: #### EMRAD ####NO LOCATION NEEDEDGFR-NON AM.52 mL/min/1.31p5Gbfckxlb>60[facility] RiverComment on above:Performed By: #### EMRAD ####NO LOCATION NEEDEDGlucose mass eytp203 mg/cMPrkh07 - 99[facility] RiverComment on above:Performed By: #### EMRAD ####NO LOCATION NEEDEDHCO3 molar conc (Bld)28 mmol/HLyeqve31 - 32[facility] RiverComment on above:Performed By: #### EMRAD ####NO LOCATION NEEDEDPhosphate mass conc3.0 mg/dLNormal2.5 - 4.9[facility] RiverComment on above: Result Comment: The performance characteristics of phosphorus testing in heparinized plasma have been validated by the individual laboratory site where testing is performed. Testing on heparinizedplasma is not approved by the FDA; however, such approval is not necessary.Performed By: #### EMRAD ####NO LOCATION NEEDEDPotassium molar conc4.2 mmol/LNormal3.5 - 5.3[facility] RiverComment on above:Performed By: #### EMRAD ####NO LOCATION NEEDEDSodium molar nnji383 mmol/PKhw835 - 145[facility] RiverComment on above: Performed By: #### EMRAD ####NO LOCATION NEEDEDUrea nitrogen mass conc24 mg/dL High6 - 23[facility] RiverComment on above:Performed By: #### EMRAD ####NO LOCATION NEEDEDTH CHEST 1 VIEWon [id number] CHEST 1 VIEWMRN: [id number] Name: DON ELKINS STUDY:TH CHEST 1 VIEW; 04/03/2018 4:50 pm INDICATION:Signs/Symptoms: chest tube removal. COMPARISON:Chest radiograph dated 04/03/2018 at 5:00 a.m. ORDERING CLINICIAN:MARY MUNROE FINDINGS:Patient is status post median sternotomy. There has been intervalremoval of a mediastinal drain. CARDIOMEDIASTINAL SILHOUETTE:Cardiomediastinalsilhouette is persistently enlarged, unchanged fromprior. LUNGS:Redemonstration of a small right apical pneumothorax, slightlydecreased in size compared to the prior study. Persistent low lungvolumeswith bronchovascular crowding. Mild bibasilar atelectasis isagain present. [...] findingsas stated. This study was interpreted at [facility], [place], [place].Electronically signed by: Luca TATEVanderbilt-Ingram Cancer Center CHEST 1 VIEWMRN: [id number] Name: DON ELKINS STUDY:CHEST 1 VIEW; 04/03/2018 4:58 am INDICATION:Signs/Symptoms: Postop Cardiac Surgery. COMPARISON:Chest radiograph dated 04/02/2018. 934 ORDERING CLINICIAN:CRISTIANO WYNNE FINDINGS:The patient is status [...] slightly increased in size fromthe prior study. C ontinued attention on follow-up imaging isrecommended.2. Stable enlargement of the cardiomediastinal silhouette withoutfrank pulmonary edema.3. Mild bibasilar atelectasis with stable appearance of left basilarand retrocardiac opacity, which may be secondary to a smallleft-sided pleural effusion with associated atelectasis. However,superimposed consolidation cannot be fully excluded.I personally reviewed the images/study and I agree with the findingsas stated. This study was interpreted at [place], [place].Electronically signed by: Luca TATEHealthsouth - Specialty Hospital Of UnionARTERIAL FULL PANELon 94-68-6284Mauhv gap 3 molar conc6 mmol/LLow 10 - 25[facility] RiverComment on above:Performed By: #### EMRAD ####NO LOCATION NEEDEDBASE EXCESS-BLOOD4.1 mmol/LHigh-2.0 - 3.0[facility] RiverComment on above:Performed By: #### EMRAD ####NO LOCATION NEEDED CALCIUM,IONIZED1.13 mmol/LNormal1.10 - 1.33[facility] RiverComment on above:Performed By: #### EMRAD ####NO LOCATION NEEDEDChloride molar vuvh803 mmol/YGukdsk99 - 107[facility] RiverComment on above:Performed By: #### EMRAD ####NO LOCATION NEEDEDGlucose mass xutt024 mg/oNRooi26 - 99[facility] RiverComment on above:Performed By: #### EMRAD ####NO LOCATION NEEDEDHematocrit Auto Volume Fraction (Bld)24.0 %Low41.0 - 52.0[facility] RiverComment on above:Performed By: #### EMRAD ####NO LOCATION NEEDEDHGB,CALCULATED8.2 g/dLLow13.5 - 17.5[facility] Comment on above:Performed By: #### EMRAD ####NO LOCATION NEEDEDLactate molar conc1.5 mmol/LNormal0.4 - 2.0[facility]oms RiverComment on above: Performed By: #### EMRAD ####NO LOCATION NEEDEDOxygen ppres (BldA)93 mm[Hg] Wutcfy66 - 95[facility] RiverComment on above:Performed By: #### EMRAD ####NO LOCATION TEZZERQOV387 zjRvJcmz61 - 42[facility] Comment on above:Performed By: #### EMRAD ####NO LOCATION NEEDEDpH (Bld)7.41 [pH]Normal7.38 - 7.42[facility] RiverComment on above:Performed By: #### EMRAD ####NO LOCATION NEEDEDPotassium molar conc4.1 mmol/LNormal3.5 - 5.3[facility] RiverComment on above:Performed By: #### EMRAD ####NO LOCATION NEEDEDRBC Auto #/vol (Bld)29.2 mmol/LHigh22.0 - 26.0[facility] RiverComment on above:Performed By: #### EMRAD ####NO LOCATION NEEDED SO299 %Etkqzg96 - 100[facility] RiverComment on above:Performed By: #### EMRAD ####NO LOCATION NEEDEDSodium molar lqgc460 mmol/YEfa215 - 145[facility] RiverComment on above:Performed By: #### EMRAD ####NO LOCATION NEEDEDCALCIUM, IONIZEDon 79-81-2981EFMCQBU,IONIZED1.11 mmol/LNormal1.10 - 1.33[facility] RiverComment on above:Result Comment: The performance characteristics of ionized calcium tested in heparinized plasma or s thomas have been validated by the individual laboratory site where testing is performed. Testing on heparinized plasma or serum is not approved by the FDA; however, such approval is not necessary.Performed By: #### EMRAD ####NO LOCATION NEEDEDCBCon 34-82-7398Ywsgczfwpvb distribution width Auto Ratio (RBC)13.3 % Aqwsmt07.5 - 14.5[facility] RiverComment on above:Performed By: #### EMRAD ####NO LOCATION NEEDEDHematocrit Auto Volume Fraction (Bld)29.1 %Low41.0 - 52.0[facility] RiverComment on above:Performed By: #### EMRAD ####NO LOCATION NEEDEDHemoglobin mass conc (Bld)9.5 g/dLLow13.5 - 17.5[facility] RiverComment on above:Performed By: #### EMRAD ####NO LOCATION NEEDED MCHC Auto mass conc (RBC)32.6 g/bPGvigmv05.0 - 36.0[facility] Comment on above:Performed By: #### EMRAD ####NO LOCATION NEEDEDMCV Auto Entitic volume (RBC)94 yQDfizwy95 - 100[facility] RiverComment on above: Performed By: #### EMRAD ####NO LOCATION NEEDEDNucleated RBC/100 WBC Ratio (Bld) 0.0 /100 WBCNormal0.0-0.0[facility] RiverComment on above:Performed By: #### EMRAD ####NO LOCATION NEEDEDPlatelets Auto #/vol (Bld)122 10*3/cFBzq155 - 450[facility] RiverComment on above:Performed By: #### EMRAD ####NO LOCATION NEEDEDRBC Auto #/vol (Bld)3.08 x10E12/LLow4.50 - 5.90[facility] RiverComment on above:Performed By: #### EMRAD ####NO LOCATION NEEDEDWBC Auto #/vol (Bld)10.1 10*3/uLNormal4.4 - 11.3[facility] RiverComment on above:Performed By: #### EMRAD ####NO LOCATION NEEDED COAGULATION SCREENon 24-12-9513lGFG Coag time (Bld)28 oZnalmm52 - 38[facility] RiverComment on above:Result Comment: Note new reference range as of 03/10/2018. THE APTT IS NO LONGER USED FOR MONITORING UNFRACTIONATED HEPARIN THERAPY. FOR MONITORING HEPARIN THERAPY, USE THE HEPARIN ASSAY.Performed By: #### EMRAD ####NO LOCATION NEEDEDINR Coag RelTime (PPP)1.4 {INR}High0.9 - 1.1[facility] RiverComment on above:Performed By: #### EMRAD ####NO LOCATION NEEDEDProthrombin time (PT) Coag time (PPP)15.2 sHigh9.7 - 12.7[facility] RiverComment on above:Result Comment: Note new reference range as of 03/10/2018.Performed By: #### EMRAD ####NO LOCATION NEEDEDCORTISOL, P.M.on 67-09-9767INXRRGBL, P.M.13.8 ug/dLHigh2.5 - 10.0[facility] RiverComment on above:Performed By: #### EMRAD ####NO LOCATION NEEDEDDaily Progress Note - Critical Care-SICU mary 53-05-9968Ludivaz mass conc Service:Critical Care Service: [facility] Subjective Data:ID Statement:DON ELKINS is a 67 year old Male who is Hospital Day # 16 and ICU Day #3 andPOD #2 for CABG x 3;-REIS to LAD;-SVG to PDA;-SVG to Diag ;Endoscopic harvestof right saphenous vein. Lisinopril held at bedtime for controlledBP and HR. Otherwise NAEO. Patientdoing well this morning with mild pain this morning. Was able to eat half anomelette and ice cream yesterday and walk around the unit. Objective Data: Objective InformationT VBJAIkE4Moxwe81.6236089%Date/Time04/02 8: 7: 7: 7:00Range(36.3C - 37.2C ) [...] (L/min/m2)2.4(2.4 - 3.9)04/01 10:00 Direct Arterial Blood XzfbpwjxIikqfmum266(120 - 159)04/02 7:00Diastolic (mm Hg)51(51 - 77)04/02 7:00Mean (mm Hg)73(72 - 101)04/02 7:00Pulse Pressure (mm Hg)71(66 - 94)04/02 7:52Gwbmqcum748(120 - 159)04/02 7:00Diastolic (mm Hg)51(51- 77)04/02 7:00Mean (mm Hg)73(72 - 101)04/02 7:00Pulse Pressure (mm Hg)71(66 - 94)04/02 7:00 EOXRteystqo65(28 - 39)04/01 11:00Diastolic (mm Hg)22(10 - 22)04/01 11:00Mean (mm Hg)9(9 - 28)04/01 11:00 ---- Intake and Output -----Mn/Dy/Year TimeIntakeOutputNetNov 2017 6:00 [id number] 2017 10:00 [id number]- 147Nov 2017 2:00 [id number] The Intake and Output Totals for the last 24 hours are:[id number] Drain and tube details (included in I&O [...] Allergies: Allergies: No Known Allergies: Recent Lab Result s: Results:CBC: 04/02/2018 02:35 \ Hgb / \ 9.5 L /WBC Plt 10.1 122 L / Hct \ / 29.1 L \ RBC: 3.08 L MCV: 94 RFP: 04/02/2018 02:35NA+ Cl- BUN / 133 L 97 L 21 / Glucose 182 H K+ HCO3- Creat \ 4.1 27 1.21 \Calcium : 8.5 LAnion Gap : 13 Albumin : 3.5 Phos : 3.6 Coagulation: 04/02/2018 02:35PT / 15.2 H /-------< INR < 1.4 HPTT\ 28 \ Recent Arterial Blood Gas Results 04/02/2018 02:45qZ825 24 h range: ( 73 - 93 )pH7.41 24 h range: ( 7.41 - 7.43 )mNZ140 24 h range: ( 38 - 46 )SO299 24 h range: ( 96 - 99 )Base Excess4.1 24 h range: ( 0.9 - 4.1 )Srkaivyotvg13.2 24 h range: ( 25.2 - 29.2 ) Assessment and Plan:Daily Risk Screen: Does patient have a central lineno Does patient have an indwelling urinary catheteryes Plan for indwelling urinary catheter removal todayyes Is the patient intubatedno Other:Assessment: Assessment:67 year old with a history of CAD, HTN, HLD, DM2, Gerd, [place]'s, andhypothyroid presents from the OR s/p CABG x 3. Plan:NEURO: Patient arrived intubated and sedated on propofol infusion. Acutepost-operative pain. H/o depression, RLS. Patient is extubated on 3L NC.-->- Continue home citalopram and ropinirole- Serial neuro andpain assessments- PO oxycodone PRN- Lidoderm patches- PT Consult, OOB to chair as tolerated- CAM ICU score qshift- Sleep/wake cycle hygiene CV: Patient has a history of CAD, HTN, HLD and is status post CABG x 3. LVfunction: normal pre-op, intra-op echo not obtained d/t patient reportingdysphagia ~1month. Arrived to ICU on Clevidipine. Pacer set [...] lantus and lispro per endocrine recommendations -->- ConsultedEndocrine for management of Brigida's and diabetes- Continue hydrocortisone- Maintain BG <180, insulin per SICU protocol- Continue home synthroid HEME: Acute blood loss anemia and thrombocytopenia-->- Monitor drain output volume and characteristics- CBC, coags, and fibrinogen post op and as clinically indicated- SCDs and subcutaneous heparin for DVT prophylaxis. ID: Afebrile, no s/s of active infection. 03/19 MRSA screen and urine culturenegative.- Trend temp q4h- Periop Cefuroxime 1.5g x5 doses Proph:SCDsSubcutaneous heparinPPI G: LineLeft Filiberto Rossi - dc Dispo: Continue SICU care.#19998 Code Status: Code StatusFull Code SCIP:Urinary Catheter Removed Post-Op Day 2: noReason PatientNeeds Her: Strict I&0Patient on Beta Danica Prior to Admission: noProphylactic antibiotics scheduled to be discontinued with 24 hr of anesthesiaend time (48 hr for cardiac surgery): yesType ofVTE Prophylaxis Ordered: Subcutaneous heparin and SCDs Signature/Cosignature/Attestation:Comments/ Additional Urrjpfkv75f/o male s/p CABG x3 with Dr Gaston. Currently: Addisons Dz-steroids per endocrineAcute pulm insufficiency post op, hx of OSADue to pleural effusions- diurese todayAdequate oxygenation and ventilation on nasal cannulaCT 2 with air leakEncouraged aggressive Bronchopulmonary hygiene/Incentive Spirometry andEzPAP, out of bed, etcCPAP at night for AKASH PO as tolerated IDDMSSI as needed, endo followingMetoprolol for HR/BP controlASA/Statin CKDFollow UOP, adequate thus farD/c her Acute blood loss anemia- follow Hx of DVTs/p IVC filterrestart subcutaneous heparin Electronic Signatures:Abelino Klein) (Signed 02-Apr-2018 14:54)Authored: Signature/Cosignature/AttestationSCristiano wells (Resident)) (Signed 02-Apr-2018 08:39)Authored: Service, Subjective Data, Objective Data, Assessment and Plan Last Updated: 02-Apr-2018 14:54 by Abelino Klein)[facility] ClinicDaily Progress Note-Endocrinologyon 45-69-1178Gjnuimq mass concConsult Type: subsequent visit/care Service: Endocrinology Subjective Data:DON ELKINS is a 67 yearold Male who is Hospital Day # 16 and POD #2 for CABGx 3;-REIS to LAD;-SVG to PDA;- SVG to Diag ;Endoscopic harvest of rightsaphenous vein. Objective Data: Objective Information: ---- Intake and Output -----Mn/Dy/Year TimeIntakeOutputNetNov 2017 2:00 [id number] 2017 6:00 fm20369- 585Nov 2017 10:00 [id number] The Intake and Output Totals for the last 24 hours are:[id number] Physical Exam: Constitutional: Well developed, awake/alert/oriented x3, no distress, alert a ndcooperativeGastrointestinal: Nondistended, soft, non-tender, no rebound tenderness orguarding, nomasses palpable, no organomegaly, +BS, no bruitsSkin: Warm and dry, no lesions, no rashes Medication: Medications: Continuous Medications No continuous medications areactive Scheduled Medications 1. Aspirin Enteric Coated: 81 mg OralDaily2. Atorvastatin: 40 mg Oral Daily3. Citalopram (CELEXA): [...] Warfarin: 5 mg Oral Daily PRN Medications 1. Bisacodyl Rectal: 10 mg Rectal Daily2. Dextrose 50% in Water Injectable: 25 gram(s) IntraVenous PushEvery 51Lnhxxpa5. Glucagon Injectable: 1 mg IntraMuscular Every 15 Minutes4. Ondansetron Injectable: 4 mg IntraVenous Push Every 6 Hours5. oxyCODONE Immediate Release: 5 mg Oral Every 4 Hours6. oxyCODONE Immediate Release: 10 mg Oral Every 4 Hours Currently Suspended Medications 1. Lisinopril: 20 mg Oral Every Night Recent Lab Results: Results: I have reviewed these laboratory results: Glucose_POCT Trending View Dyehsf91-Ivp-8342 17:14:00 02-Apr-2018 11:05:00 02-Apr-2018 07:21:00 02-Apr-2018 03:09:00 01-Apr-2018 23:14:00 01-Apr-2018 19:21:00 66-Kwp-615259:19:00 01-Apr-2018 11:07:00 01-Apr-2018 07:27:00 01-Apr-2018 03:17:00 01-Apr-2018 00:07:00Glucose-IXNY001A 310 H 223 H 199 H 167 H 174 H 152H 181 H 228 H 168 H 175 H Renal Function Panel Trending View Lxbchj64-Ozw-5518 02:35:00 01-Apr-2018 18:56:00 01-Apr-2018 03:26:00Glucose, Jnryd017 H 169 H 167 HSY997 L 134 L 137K4.1 4.2 4.4CL97 L 99 100Bicarbonate, Serum27 28 26Anion Gap, Serum13 11 70KSL72 20 70XDIGH9.21 1.35 H 1.30GFR-Non Rnmxtipq11 A 53 A 55 AGFR- Dpeyyciq81 64 67Calcium, Serum8.5 L 8.8 8.7Phosphorus, Serum3.6 3.3 4.0ALB3.5 3.7 3.7 Cortisol P.M. Trending View Zpjlvd26-Ien-6171 20:38:00 01-Apr-2018 18:56:00 01-Apr-2018 17:14:00Cortisol P.M.13.8 H 22.4 H 34.8 H Assessment andPlan:Assessment: Mr. Elkins is a 67 yo WM with no known history of CAD, who has a past medicalhistoryof HTN, HLD, T2DM, [place]'s disease, hypothyroidism, COPD, AKASH onCPAP, prostate ca s/p prostatectomy in 2011, and psoriasis who [facility] on [facility] forCABG eval.Endocrine consulted fr evaluation of [place] disease and treatment periop Patient was on supra-therapeutic dose of HCT 20-0-20 , fludrocortisone 0.1 ,mgdailyPatient has uncontrolled HTN and uncontrolled BSIVC filter placed on 03/23 1. Brigida's Disease-- Fludrocortisone0.05 mg 4 times weekly ( and Friday)-- [...] mg PO at 9 pm todayon 04/[address] PO 20 mg @ 8 am [...] noon - 2.5 mg @ 5pm 2. Y2OQ--vtwsrnkg Glargine today as : 20 units QHS and Lispro 6 TIDAC-ISS correction to 2 units per 50 >150--Will follow Please page with questions [phone] Patient seen and examined, plan discussed with Dr Quevedo Signature/Cosignature/Attestation:Attending AttestationI saw and evaluated the patient. I personally obtainedthe judge and critical portions of the history and physical exam or wasphysically present for judge and critical portions performed by theresident/fellow. I reviewed the resident/fellows documentation and discussedthe patient with the resident/fellow. I agree with the resident/fellowsmedical decision making as do cumented in the residents note.I personally evaluated the patient (as noted in the above attestation) [id number] Electronic Signatures:Starr Quevedo) (Signed 03-Apr-2018 15:53)Authored:Signature/Cosignature/AttestationCo- Signer: Service, Subjective Data, Objective Data, Assessment and Plan,Signature/Cosignature/AttestationHasmukh Stephenson (Resident)) (Signed 02-Apr-2018 17:27)Authored: Service, Subjective Data, Objective Data, Assessment and Plan,Signature/Cosignature/Attestation Last Updated: 03-Apr-2018 15:53 by Starr Quevedo)[facility] ClinicGLUCOSE-POCT on 39-94-2871Mgyewxh mass sbvs306 mg/gZEdzn70[address] Comment on above:Performed By: #### EMRAD ####NO LOCATION NEEDEDGlucose mass fdym040 mg/sBAkmb7622 Wilson StreetComment on above:Performed By: #### EMRAD ####NO LOCATION NEEDEDGlucose mass odcj146 mg/yKMifo2222 [address] StreetComment on above:Result Comment: Glu2: Fingertip - CapillarPerformed By: #### EMRAD ####NO LOCATION NEEDEDGlucose mass kfwv452 mg/xEMwic4522 Wilson StreetComment on above:Result Comment: Glu2: Fingertip - CapillarPerformed By: #### EMRAD ####NO LOCATION NEEDEDGlucose mass uobz713 mg/iNNuub0122 Wilson StreetComment on above: Performed By: #### EMRAD ####NO LOCATION NEEDEDGlucose mass gqcs151 mg/tFIzzb80[address] CenterComment on above:Performed By: #### EMRAD ####NO LOCATION NEEDEDMAGNESIUMon 66-59-8377Onlezvwde mass conc1.88 mg/dLNormal1.60 - 2.40[facility] RiverComment on above:Performed By: #### EMRAD ####NO LOCATION NEEDEDRENAL FUNCTION PANELon 07-91-3837Pugxrts mass conc3.5 g/dLNormal 3.4 - 5.0[facility] RiverComment on above:Performed By: #### EMRAD ####NO LOCATION NEEDEDAnion gap 3 molar conc13 mmol/EOftglz34 - 20[facility] RiverComment on above:Performed By: #### EMRAD ####NO LOCATION NEEDED Calcium mass conc8.5 mg/dLLow8.6 - 10.6[facility] RiverComment on above:Performed By: #### EMRAD ####NO LOCATION NEEDEDChloride molar conc97 mmol/LLow98 - 107[facility] RiverComment on above:Performed By: #### EMRAD ####NO LOCATION NEEDEDCreatinine mass conc1.21 mg/dLNormal0.50 - 1.30[facility] RiverComment on above:Performed By: #### EMRAD ####NO LOCATION NEEDEDGFR- AM.73 mL/min/1.92p3Bjuizf>60[facility] RiverComment on above:Result Comment: CALCULATIONS OF ESTIMATED GFR ARE PERFORMED USING THE MDRD STUDY EQUATION FOR THE IDMS-TRACEABLE CREATININE METHODS. CLIN CHEM 2007;53:766-72Performed By: #### EMRAD ####NO LOCATION NEEDED GFR-NON AM.60 mL/min/1.20d4Ngxvxmgj>60[facility] RiverComment on above:Performed By: #### EMRAD ####NO LOCATION NEEDEDGlucose mass ixtt346 mg/sMVvrm21 - 99[facility] RiverComment on above:Performed By: #### EMRAD ####NO LOCATION NEEDEDHCO3 molar conc (Bld)27 mmol/FHnwjza55 - 32[facility] RiverComment on above:Performed By: #### EMRAD ####NO LOCATION NEEDEDPhosphate mass conc3.6 mg/dLNormal2.5 - 4.9[facility] RiverComment on above:Result Comment: The performance characteristics of phosphorus testing in heparinized plasma have been validated by the individual laboratory site where testing is performed. Testing on heparinizedplasma is not approved by the FDA; however, such approval is not necessary.Performed By: #### EMRAD ####NO LOCATION NEEDEDPotassium molar conc4.1 mmol/LNormal3.5 - 5.3[facility] RiverComment on above:Performed By: #### EMRAD ####NO LOCATION NEEDEDSodium molar oobn896 mmol/WJqy163 - 145[facility] RiverComment on above:Performed By: #### EMRAD ####NO LOCATION NEEDEDUrea nitrogen mass conc21 mg/dLNormal6 - 23[facility] RiverComment on above:Performed By: #### EMRAD ####NO LOCATION NEEDEDTH CHEST 1 VIEWon 63-20-4329LD CHEST 1 VIEWMRN: [id number] Name: DON ELKINS STUDY:TH CHEST 1 VIEW; 04/02/2018 4:03 am INDICATION:Signs/Symptoms: AM rounds. COMPARISON:Chest radiograph from 04/01/2018 ORDERING CLINICIAN:TESSIE BYRD FINDINGS:Interval extubation and removal of enteric tube. Right IJ Auburn-Ganzcatheter has also been removed. There has also been interval removalof left basilar chest tube. Persistent mediastinal drain.Status post median sternotomy. Patient is slightly rotated towardsright.The cardiomediastinal silhouette is enlarged and grossly stable,allowing [...] effusions are not excluded. Electronically signed by: Mony TATE Jfk Johnson Rehabilitation InstituteARTERIAL FULL PANELon 35-16-8641Dmlkn gap 3 molar conc10 mmol/PVjsojl49 - 25[facility] RiverComment on above:Performed By: #### EMRAD ####NO LOCATION NEEDEDBASE EXCESS-BLOOD1.9 mmol/LNormal-2.0 - 3.0[facility] RiverComment on above:Performed By: #### EMRAD ####NO LOCATION NEEDED CALCIUM,IONIZED1.12 mmol/LNormal1.10 - 1.33[facility] RiverComment on above:Performed By: #### EMRAD ####NO LOCATION NEEDEDChloride molar hnjh299 mmol/UBzofmn22 - 107[facility] RiverComment on above:Performed By: #### EMRAD ####NO LOCATION NEEDEDGlucose mass vrqg804 mg/hOKhxt66 - 99[facility] RiverComment on above:Performed By: #### EMRAD ####NO LOCATION NEEDEDHematocrit Auto Volume Fraction (Bld)30.0 %Low41.0 - 52.0[facility] RiverComment on above:Performed By: #### EMRAD ####NO LOCATION NEEDEDHGB,BPQCTYUCIR57.2 g/dLLow13.5 - 17.5[facility] Comment on above:Performed By: #### EMRAD ####NO LOCATION NEEDEDLactate molar conc2.3 mmol/LHigh0.4 - 2.0[facility] RiverComment on above:Performed By: #### EMRAD ####NO LOCATION NEEDEDOxygen ppres (BldA)82 mm[Hg]Low85 - 95[facility] RiverComment on above:Performed By: #### EMRAD ####NO LOCATION AAWQPRBGS273 hmAxRgagmy87 - 42[facility] RiverComment on above:Performed By: #### EMRAD ####NO LOCATION NEEDEDpH (Bld)7.42 [pH]Normal7.38 - 7.42[facility] RiverComment on above:Performed By: #### EMRAD ####NO LOCATION NEEDEDPotassium molar conc4.1 mmol/LNormal3.5 - 5.3[facility] RiverComment on above:Performed By: #### EMRAD ####NO LOCATION NEEDED RBC Auto #/vol (Bld)26.6 mmol/LHigh22.0 - 26.0[facility] RiverComment on above:Performed By: #### EMRAD ####NO LOCATION DKCLAEVX016 %Frbbdm58 - 100[facility] RiverComment on above:Performed By: #### EMRAD ####NO LOCATION NEEDEDSodium molar txmt588 mmol/ARak008 - 145[facility] RiverComment on above:Performed By: #### EMRAD ####NO LOCATION NEEDEDAnion gap 3 molar conc8 mmol/LLow10 - 25[facility] RiverComment on above: Performed By: #### EMRAD ####NO LOCATION NEEDEDBASE EXCESS-BLOOD3.0 mmol/LNormal -2.0 - 3.0[facility] RiverComment on above:Performed By: #### EMRAD ####NO LOCATION NEEDEDCALCIUM,IONIZED1.17 mmol/LNormal1.10 - 1.33[facility] RiverComment on above:Performed By: #### EMRAD ####NO LOCATION NEEDED Chloride molar ocnv330 mmol/NVdzpwb32 - 107[facility] RiverComment on above:Performed By: #### EMRAD ####NO LOCATION NEEDEDGlucose mass gwus879 mg/dL High74 - 99[facility] RiverComment on above:Performed By: #### EMRAD ####NO LOCATION NEEDEDHematocrit Auto Volume Fraction (Bld)29.0 %Low41.0 - 52.0 [facility] RiverComment on above:Performed By: #### EMRAD ####NO LOCATION NEEDEDHGB,CALCULATED9.9 g/dLLow13.5 - 17.5[facility] Comment on above:Performed By: #### EMRAD ####NO LOCATION NEEDEDLactate molar conc2.2 mmol/LHigh0.4 - 2.0[facility] RiverComment on above:Performed By: #### EMRAD ####NO LOCATION NEEDEDOxygen ppres (BldA)75 mm[Hg]Low85 - 95[facility] RiverComment on above:Performed By: #### EMRAD ####NO LOCATION DZWEKZBVR751 igSaZoec49 - 42[facility] RiverComment on above:Performed By: #### EMRAD ####NO LOCATION NEEDEDpH (Bld)7.42 [pH]Normal7.38 - 7.42[facility] RiverComment on above:Performed By: #### EMRAD ####NO LOCATION NEEDEDPotassium molar conc4.3 mmol/LNormal3.5 - 5.3[facility] RiverComment on above:Performed By: #### EMRAD ####NO LOCATION NEEDED RBC Auto #/vol (Bld)27.9 mmol/LHigh22.0 - 26.0[facility] RiverComment on above:Performed By: #### EMRAD ####NO LOCATION OSDUHHAC912 %Jsicnf31 - 100[facility] RiverComment on above:Performed By: #### EMRAD ####NO LOCATION NEEDEDSodium molar vbdv433 mmol/YKqg446 - 145[facility] RiverComment on above:Performed By: #### EMRAD ####NO LOCATION NEEDEDAnion gap 3 molar conc11 mmol/WVepqpf02 - 25[facility] RiverComment on above: Performed By: #### EMRAD ####NO LOCATION NEEDEDBASE EXCESS-BLOOD0.9 mmol/LNormal -2.0 - 3.0[facility] RiverComment on above:Performed By: #### EMRAD ####NO LOCATION NEEDEDCALCIUM,IONIZED1.16 mmol/LNormal1.10 - 1.33[facility] RiverComment on above:Performed By: #### EMRAD ####NO LOCATION NEEDED Chloride molar lyeb132 mmol/DPggsvo67 - 107[facility] RiverComment on above:Performed By: #### EMRAD ####NO LOCATION NEEDEDGlucose mass ajmt293 mg/dL High74 - 99[facility] RiverComment on above:Performed By: #### EMRAD ####NO LOCATION NEEDEDHematocrit Auto Volume Fraction (Bld)31.0 %Low41.0 - 52.0 [facility] RiverComment on above:Performed By: #### EMRAD ####NO LOCATION NEEDEDHGB,OAFTFUOSEK17.5 g/dLLow13.5 - 17.5[facility] Comment on above:Performed By: #### EMRAD ####NO LOCATION NEEDEDLactate molar conc3.3 mmol/LHigh0.4 - 2.0[facility] RiverComment on above:Performed By: #### EMRAD ####NO LOCATION NEEDEDOxygen ppres (BldA)73 mm[Hg]Low85 - 95[facility] RiverComment on above:Performed By: #### EMRAD ####NO LOCATION UCGSYHBGA095 ycUaMnmryw50 - 42[facility] RiverComment on above:Performed By: #### EMRAD ####NO LOCATION NEEDEDpH (Bld)7.43 [pH]High7.38 - 7.42[facility] [facility] RiverComment on above:Performed By: #### EMRAD ####NO LOCATION NEEDEDPotassium molar conc4.2 mmol/LNormal3.5 - 5.3[facility] RiverComment on above:Performed By: #### EMRAD ####NO LOCATION NEEDED RBC Auto #/vol (Bld)25.2 mmol/FXzugzb83.0 - 26.0[facility] Comment on above:Performed By: #### EMRAD ####NO LOCATION UAXIYDAZ546 %Uofcfo84 - 100[facility] RiverComment on above:Performed By: #### EMRAD ####NO LOCATION NEEDEDSodium molar jsbi448 mmol/OJud688 - 145[facility] RiverComment on above:Performed By: #### EMRAD ####NO LOCATION NEEDEDAnion gap 3 molar conc12 mmol/EVivgtt73 - 25[facility] RiverComment on above: Performed By: #### EMRAD ####NO LOCATION NEEDEDBASE EXCESS-BLOOD3.5 mmol/LHigh- 2.0 - 3.0[facility] RiverComment on above:Performed By: #### EMRAD ####NO LOCATION NEEDEDCALCIUM,IONIZED1.12 mmol/LNormal1.10 - 1.33[facility] RiverComment on above:Performed By: #### EMRAD ####NO LOCATION NEEDED Chloride molar maqs449 mmol/LXidinq41 - 107[facility] RiverComment on above:Performed By: #### EMRAD ####NO LOCATION NEEDEDGlucose mass ghks691 mg/dL High74 - 99[facility] RiverComment on above:Performed By: #### EMRAD ####NO LOCATION NEEDEDHematocrit Auto Volume Fraction (Bld)32.0 %Low41.0 - 52.0 [facility]Comment on above:Performed By: #### EMRAD ####NO LOCATION NEEDEDHGB,WCKKRJIAJU03.9 g/dLLow13.5 - 17.5[facility] Comment on above:Performed By: #### EMRAD ####NO LOCATION NEEDEDLactate molar conc2.8 mmol/LHigh0.4 - 2.0[facility]Comment on above:Performed By: #### EMRAD ####NO LOCATION NEEDEDOxygen ppres (BldA)85 mm[Hg]Thmkcj85 - 95 [facility]Comment on above:Performed By: #### EMRAD ####NO LOCATION OJSAVTEKO355 hqSaEmyn12 - 42[facility] RiverComment on above:Performed By: #### EMRAD ####NO LOCATION NEEDEDpH (Bld)7.42 [pH]Normal7.38 - 7.42[facility]Comment on above:Performed By: #### EMRAD ####NO LOCATION NEEDEDPotassium molar conc4.6 mmol/LNormal3.5 - 5.3[facility]Comment on above:Performed By: #### EMRAD ####NO LOCATION NEEDED RBC Auto #/vol (Bld)28.5 mmol/LHigh22.0 - 26.0[facility] RiverComment on above:Performed By: #### EMRAD ####NO LOCATION LRZZUUWJ697 %Zjorhx25 - 100[facility] RiverComment on above:Performed By: #### EMRAD ####NO LOCATION NEEDEDSodium molar afzv620 mmol/SMoluiy727 - 145[facility] RiverComment on above:Performed By: #### EMRAD ####NO LOCATION NEEDEDAnion gap 3 molar conc9 mmol/LLow10 - 25[facility]Comment on above: Performed By: #### EMRAD ####NO LOCATION NEEDEDBASE EXCESS-BLOOD2.4 mmol/LNormal -2.0 - 3.0[facility]Comment on above:Performed By: #### EMRAD ####NO LOCATION NEEDEDCALCIUM,IONIZED1.10 mmol/LNormal1.10 - 1.33[facility]Comment on above:Performed By: #### EMRAD ####NO LOCATION NEEDED Chloride molar kugb750 mmol/ZEtuhwn33 - 107[facility]Comment on above:Performed By: #### EMRAD ####NO LOCATION NEEDEDGlucose mass jwqd303 mg/dL High74 - 99[facility]Comment on above:Performed By: #### EMRAD ####NO LOCATION NEEDEDHematocrit Auto Volume Fraction (Bld)29.0 %Low41.0 - 52.0 [facility]Comment on above:Performed By: #### EMRAD ####NO LOCATION NEEDEDHGB,CALCULATED9.9 g/dLLow13.5 - 17.5[facility] Comment on above:Performed By: #### EMRAD ####NO LOCATION NEEDEDLactate molar conc3.1 mmol/LHigh0.4 - 2.0[facility]Comment on above:Performed By: #### EMRAD ####NO LOCATION NEEDEDOxygen ppres (BldA)115 mm[Hg]High85 - 95[facility] RiverComment on above:Performed By: #### EMRAD ####NO LOCATION IUUIEXCVH669 nvUiXiusac19 - 42[facility] RiverComment on above:Performed By: #### EMRAD ####NO LOCATION NEEDEDpH (Bld)7.42 [pH]Normal7.38 - 7.42[facility] RiverComment on above:Performed By: #### EMRAD ####NO LOCATION NEEDEDPotassium molar conc4.4 mmol/LNormal3.5 - 5.3[facility]Comment on above:Performed By: #### EMRAD ####NO LOCATION NEEDED RBC Auto #/vol (Bld)27.2 mmol/LHigh22.0 - 26.0[facility] RiverComment on above:Performed By: #### EMRAD ####NO LOCATION HYLZQZTQ688 %Gjijbm63 - 100[facility] RiverComment on above:Performed By: #### EMRAD ####NO LOCATION NEEDEDSodium molar oirk651 mmol/VGfy109 - 145[facility] RiverComment on above:Performed By: #### EMRAD ####NO LOCATION NEEDEDAnion gap 3 molar conc10 mmol/WGvsgmm32 - 25[facility]Comment on above: Performed By: #### EMRAD ####NO LOCATION NEEDEDBASE EXCESS-BLOOD1.2 mmol/LNormal -2.0 - 3.0[facility]Comment on above:Performed By: #### EMRAD ####NO LOCATION NEEDEDCALCIUM,IONIZED1.10 mmol/LNormal1.10 - 1.33[facility]Comment on above:Performed By: #### EMRAD ####NO LOCATION NEEDED Chloride molar aalg568 mmol/FMytlmr58 - 107[facility] RiverComment on above:Performed By: #### EMRAD ####NO LOCATION NEEDEDGlucose mass clso309 mg/dL High74 - 99[facility] RiverComment on above:Performed By: #### EMRAD ####NO LOCATION NEEDEDHematocrit Auto Volume Fraction (Bld)30.0 %Low41.0 - 52.0 [facility] RiverComment on above:Performed By: #### EMRAD ####NO LOCATION NEEDEDHGB,YJJNWRYLUD11.2 g/dLLow13.5 - 17.5[facility] Comment on above:Performed By: #### EMRAD ####NO LOCATION NEEDEDLactate molar conc2.8 mmol/LHigh0.4 - 2.0[facility]Comment on above:Performed By: #### EMRAD ####NO LOCATION NEEDEDOxygen ppres (BldA)133 mm[Hg]High85 - 95[facility] RiverComment on above:Performed By: #### EMRAD ####NO LOCATION KYWZBIMBF749 veAdVgtyvk29 - 42[facility] RiverComment on above:Performed By: #### EMRAD ####NO LOCATION NEEDEDpH (Bld)7.41 [pH]Normal7.38 - 7.42[facility] RiverComment on above:Performed By: #### EMRAD ####NO LOCATION NEEDEDPotassium molar conc4.3 mmol/LNormal3.5 - 5.3[facility]Comment on above:Performed By: #### EMRAD ####NO LOCATION NEEDED RBC Auto #/vol (Bld)26.0 mmol/WOrialu31.0 - 26.0[facility] Comment on above:Performed By: #### EMRAD ####NO LOCATION BMWRVZOJ975 %Rhejzh80 - 100[facility] RiverComment on above:Performed By: #### EMRAD ####NO LOCATION NEEDEDSodium molar zyfy415 mmol/XUlc842 - 145[facility] RiverComment on above:Performed By: #### EMRAD ####NO LOCATION NEEDEDAnion gap 3 molar conc13 mmol/RRfeozw70 - 25[facility]Comment on above: Performed By: #### EMRAD ####NO LOCATION NEEDEDBASE EEZDFJ-GPSQQ-0.2 mmol/L Normal-2.0 - 3.0[facility]Comment on above:Performed By: #### EMRAD ####NO LOCATION NEEDEDCALCIUM,IONIZED1.09 mmol/LLow1.10 - 1.33[facility]Comment on above:Performed By: #### EMRAD ####NO LOCATION NEEDED Chloride molar qdhy791 mmol/LMlvkak64 - 107[facility] RiverComment on above:Performed By: #### EMRAD ####NO LOCATION NEEDEDGlucose mass hsyb992 mg/dL High74 - 99[facility] RiverComment on above:Performed By: #### EMRAD ####NO LOCATION NEEDEDHematocrit Auto Volume Fraction (Bld)37.0 %Low41.0 - 52.0 [facility]Comment on above:Performed By: #### EMRAD ####NO LOCATION NEEDEDHGB,ABTYZTIIKF01.6 g/dLLow13.5 - 17.5[facility] Comment on above:Performed By: #### EMRAD ####NO LOCATION NEEDEDLactate molar conc2.6 mmol/LHigh0.4 - 2.0[facility]Comment on above:Performed By: #### EMRAD ####NO LOCATION NEEDEDOxygen ppres (BldA)91 mm[Hg]Rkmrzn03 - 95 [facility]Comment on above:Performed By: #### EMRAD ####NO LOCATION MRVEKRUQK746 exIvAiehyk42 - 42[facility] RiverComment on above:Performed By: #### EMRAD ####NO LOCATION NEEDEDpH (Bld)7.39 [pH]Normal7.38 - 7.42[facility]Comment on above:Performed By: #### EMRAD ####NO LOCATION NEEDEDPotassium molar conc4.5 mmol/LNormal3.5 - 5.3[facility]Comment on above:Performed By: #### EMRAD ####NO LOCATION NEEDED RBC Auto #/vol (Bld)24.8 mmol/BUmmwyu03.0 - 26.0[facility] Comment on above:Performed By: #### EMRAD ####NO LOCATION LXKJULNB242 %Ntrqya90 - 100[facility] RiverComment on above:Performed By: #### EMRAD ####NO LOCATION NEEDEDSodium molar scdi413 mmol/FHjd805 - 145[facility] RiverComment on above:Performed By: #### EMRAD ####NO LOCATION NEEDEDCALCIUM, IONIZEDon 04-66-1807GUWVUYT,IONIZED1.04 mmol/LLow1.10 - 1.33[facility] RiverComment on above:Result Comment: The performance characteristics of ionized calcium tested in heparinized plasma or serum have been validated by the individual laboratory site where testing is performed. Testing on heparinized plasma or serum is not approved by the FDA; however, such approval is not necessary.Performed By: #### EMRAD ####NO LOCATION NEEDEDCBCon 04-01-2018 Erythrocyte distribution width Auto Ratio (RBC)13.2 %Ovnblz51.5 - 14.5[facility] RiverComment on above:Performed By: #### EMRAD ####NO LOCATION NEEDEDHematocrit Auto Volume Fraction (Bld)29.9 %Low41.0 - 52.0[facility] RiverComment on above:Performed By: #### EMRAD ####NO LOCATION NEEDEDHemoglobin mass conc (Bld)10.0 g/dLLow13.5 - 17.5[facility] RiverComment on above:Performed By: #### EMRAD ####NO LOCATION NEEDED MCHC Auto mass conc (RBC)33.4 g/cFVrxlnk18.0 - 36.0[facility] Comment on above:Performed By: #### EMRAD ####NO LOCATION NEEDEDMCV Auto Entitic volume (RBC)93 qBFgczbh20 - 100[facility]Comment on above: Performed By: #### EMRAD ####NO LOCATION NEEDEDNucleated RBC/100 WBC Ratio (Bld) 0.0 /100 WBCNormal0.0-0.0[facility]Comment on above:Performed By: #### EMRAD ####NO LOCATION NEEDEDPlatelets Auto #/vol (Bld)144 10*3/lNWxq172 - 450[facility] RiverComment on above:Performed By: #### EMRAD ####NO LOCATION NEEDEDRBC Auto #/vol (Bld)3.23 x10E12/LLow4.50 - 5.90[facility]Comment on above:Performed By: #### EMRAD ####NO LOCATION NEEDEDWBC Auto #/vol (Bld)11.4 10*3/uLHigh4.4 - 11.3[facility]Comment on above:Performed By: #### EMRAD ####NO LOCATION NEEDED Erythrocyte distribution width Auto Ratio (RBC)13.1 %Xpqxbw02.5 - 14.5[facility]Comment on above:Performed By: #### EMRAD ####NO LOCATION NEEDEDHematocrit Auto Volume Fraction (Bld)32.1 %Low41.0 - 52.0[facility]Comment on above:Performed By: #### EMRAD ####NO LOCATION NEEDEDHemoglobin mass conc (Bld)10.9 g/dLLow13.5 - 17.5[facility] RiverComment on above:Performed By: #### EMRAD ####NO LOCATION NEEDED MCHC Auto mass conc (RBC)34.0 g/eFFjwgda77.0 - 36.0[facility] Comment on above:Performed By: #### EMRAD ####NO LOCATION NEEDEDMCV Auto Entitic volume (RBC)92 zKDbitny01 - 100[facility]Comment on above: Performed By: #### EMRAD ####NO LOCATION NEEDEDNucleated RBC/100 WBC Ratio (Bld) 0.0 /100 WBCNormal0.0-0.0[facility]Comment on above:Performed By: #### EMRAD ####NO LOCATION NEEDEDPlatelets Auto #/vol (Bld)158 10*3/uLNormal 150 - 450[facility] RiverComment on above:Performed By: #### EMRAD ####NO LOCATION NEEDEDRBC Auto #/vol (Bld)3.50 x10E12/LLow4.50 - 5.90[facility]Comment on above:Performed By: #### EMRAD ####NO LOCATION NEEDEDWBC Auto #/vol (Bld)9.7 10*3/uLNormal4.4 - 11.3[facility] RiverComment on above:Performed By: #### EMRAD ####NO LOCATION NEEDED COAGULATION SCREENon 07-00-7631lHMD Coag time (Bld)25 sLow28 - 38[facility] RiverComment on above:Result Comment: Note new reference range as of 03/10/2018. THE APTT IS NO LONGER USED FOR MONITORING UNFRACTIONATED HEPARIN THERAPY. FOR MONITORING HEPARIN THERAPY, USE THE HEPARIN ASSAY.Performed By: #### EMRAD ####NO LOCATION NEEDEDINR Coag RelTime (PPP)1.3 {INR}High0.9 - 1.1[facility] RiverComment on above:Performed By: #### EMRAD ####NO LOCATION NEEDEDProthrombin time (PT) Coag time (PPP)14.0 sHigh9.7 - 12.7[facility] RiverComment on above:Result Comment: Note new reference range as of 03/10/2018.Performed By: #### EMRAD ####NO LOCATION NEEDEDCORTISOL, P.M.on 28-01-9226CFHRQTXM, P.M.22.4 ug/dLHigh2.5 - 10.0[facility] RiverComment on above:Performed By: #### EMRAD ####NO LOCATION NEEDEDCORTISOL, P.M.34.8 ug/dLHigh2.5 - 10.0[facility] RiverComment on above: Performed By: #### EMRAD ####NO LOCATION NEEDEDDaily Progress Note - Critical Care-SICU , rodrigueelizabeth 88-66-5707Mmlnsuz mass concService:Critical Care Service: [facility] [place] Subjective Data:ID Statement:DON ELKINS is a 67 [...] is well controlled. Objective Data: Objective InformationT KWVRTzK3Zgwvd50.716874557/5997%Date/Time04/01 4: 6: 6: 14: 6:00Range(36.5C - 37.9C ) (95 - 110 ) (13 - 18 ) (125 -125 )/ (59 - 59 )(94% - 100% [...] sec/cm-5)70(68 - 74)03/31 19:00 Direct Arterial Blood BqatlthuUrhpusnn847(129 - 161)04/01 6:45Diastolic (mm Hg)67(53 - 70)04/01 6:45Mean (mm Hg)91(76 - 96)04/01 6:45Pulse Pressure (mm Hg)85(71 - 96)04/01 6:16Coubtxbh362(129 - 161)04/01 6:45Diastolic (mm Hg)67(53 - 70)04/01 6:45Mean (mm Hg)91(76 - 96)04/01 6:45Pulse Pressure (mm Hg)85(71 - 96)04/01 6:45 ZAAHajuusig24(27 - 39)04/01 6:00Diastolic (mm Hg)12(10- 22)04/01 6:00Mean (mm Hg)18(18 - 29)04/01 6:00 ---- Intake and Output -----Mn/Dy/Year TimeIntakeOutputNetNov 2017 6:00 am991.3975316Gsq 2017 10:00 dm6733.56716660Pcy 2017 2:00 pm000 TheIntake and Output Totals for the last 24 hours are:[id number] Drain and tube details (included in I&O totals)390 cc Chest Tube( 01-Apr-2018 06:00:00 )2160 cc Indwelling Catheter -Urethral( 01-Apr-2018 06:00:00 ) Physical Exam: Physical Exam:Neurological: [...] Cl- BUN / 137 100 20 / Glucose 167 H K+ HCO3- Creat \ 4.4 26 1.30 \Calcium : 8.7Anion Gap : 15 Albumin : 3.7 Phos : 4.0 Coagulation: 04/01/2018 03:26PT / 14.0 H /-------< INR < 1.3 HPTT\ 25 L \ Fibrinogen: Canceled Recent Arterial Blood Gas Results 04/01/2018 04:40sJ469 24 h range: ( 63 - 392 )pH7.42 24 h ra nge: ( 7.28 - 7.42 )vNJ728 24 h range: ( 38 - 51 )SO299 24 h range: ( 91 - 100 )Base Excess3.5 24 hrange: ( -4.5 - 3.5 )Rnksfadxkvt54.5 24 h range: ( 22 - 28.5 ) Results: Impression: 1. Postsurgicalchanges and medical appliances as described above.2. Persistent bibasilar opacity, rightmore than left likely due toatelectasis and small effusion.3. Unchanged enlarged cardiac silhouette size. Xray Chest 1 View [Apr 01 2018 9:54AM] Assessment and Plan:Daily Risk Screen: Does patient have a centrallineyes Central Line Typenon-tunneled Plan for non- tunneled central line removal todayyes Does patient have an indwelling urinary catheteryes Plan for indwelling urinary catheter removal todayno The patient continues to require indwelling urinary catheterization forcritically ill patients who need accurate urinary output measurements Is the patient intubatedno Other:Assessment: Assessment:67 yearold with a history of CAD, HTN, HLD, DM2, Gerd, [place]'s, andhypothyroid presents from the OR s/p CABG [...] for increased lactate ENDO: History of diabetes, [place]'s and hypothyroid. HbA1c: 7.9. Endocrinefollowing patient. Patient on insulin drip 03/31, transitioned to sliding scalemorning 04/01 -->- Consulted Endocrine for management of [place]'s and diabetes- Continue hydrocortisone- Maintain BG <180, [...] G: LineRight IJ MAC w PAC - dcLejoy Richey Dispo: Continue SICU care.#[id number] Code Status: Code StatusFull Code SCIP:Urinary Catheter Removed Post-Op Day 2: noReason Patient Needs Her: Strict I&0Patient on Beta Danica Prior to Admission: noProphylactic antibiotics scheduled to be discontinued with 24 hr of anesthesiaend time (48 hr for cardiac surgery): yesType of VTE Prophylaxis Ordered: Subcutaneous heparin and SCDs Signature/Cosignature/Attestation:Comments/ Additional Avsqylol31d/o male s/p CABG x3 with Dr Gaston. [...] reviewed and evaluated the most recent data shakasults, personally examined thepatient, and formulated the plan of care aspresented [...] detail. Electronic Signatures:Abelino Klein) (Signed 01-Apr-2018 11:25)Authored: Signature/Cosignature/A Cristiano Carbajal (Resident)) (Signed 01-Apr-2018 11:56)Authored: Service, Subjective Data, Objective Data, Assessment and Plan Last Updated: 01-Apr-2018 11:56 by Cristiano Wynne (Resident))[facility] ClinicDaily Progress Note-Endocrinologyon 30-41-5118Vayqgzq mass concConsult Type: subsequent visit/care Service: Endocrinology Subjective Data:DON ELKINS is a 67 yearold Male who is Hospital Day # 15 and POD #1 for CABGx 3;-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 post op D1 , dong well, HDS , on HCt 25 mg IV. Objective Data: Objective Information: ---- Intake and Output -----Mn/Dy/Year TimeIntakeOutputNetNov 2017 6:00 am991.7699708Sxl 2017 10:00 an5886.17168134Tdr 2017 2:00 pm000 The Intake and Output Totals for the last 24 hours are:[id number] Physical Exam: Constitutional: Well developed, awake/alert/oriented x3, no distress, alert andcooperativeGastrointestinal: Nondistended, soft, non-tender, no rebound tenderness orguarding, no masses palpable, no organomegaly, +BS, no bruitsSkin: Warm and dry, no lesions, no rashes Assessment and Plan:Assessment: Mr. 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 Brigida's Disease-- Fludrocortisone 0.05 mg 4 times weekly ( and Friday)-- 03/31:CABG done in am, patient given HCT 30 [...] drawing blood at 9 pm--Will follow 2. J9CG--GNkjlk Glargine today as : 20 units QHS and L6 TIDAC- Please change ISScorrection to 2 units per 50 >150--Will follow Please page with questions [phone] Patient seen and examined, plan discussed with Dr Quevedo Signature/Cosignature/Attestation:Attending AttestationI saw and evaluated the patient. I [...] patient (as noted in the above attestation) [id number] Electronic Signatures:Starr Quevedo) (Signed 02-Apr-2018 10:02)Authored: Signature/Cosignature/AttestationCo-Signer: Service, Subjective Data, Objective Data, Assessment and Plan,Signature/Cosignature/AttestationHasmukh Stephenson (Resident)) (Signed 01-Apr-2018 15:26)Authored: Service, Subjective Data, Objective Data, Assessment and Plan,Signature/Cosignature/Attestation Last Updated: 02-Apr-2018 10:02 by Starr Quevedo)[facility] ClinicDischarge Dazqvmq7by 87-21-5088Rasjnjv mass concDischarge Orders:Anticipated Discharge Date: Anticipated Discharge Eauf03-Lhv-2737 Problem List: Prelim Disch Dx: History of [place]'s disease: Catalog Name: Personal history of otherendocrine, nutritional and metabolic disease Pulmonary embolism, bilateral: Catalog Name: Other pulmonary embolismwithout acute cor pulmonale S/P IVC filter: Onset Date: 23-Mar-2018, Catalog Name: Presence of othervascular implants and grafts, Description: by Severiano Stapleton at [facility] S/P CABG x 3: Onset Date: 31-Mar-2018, Catalog Name: Presence ofaortocoronary bypass graft, Description: by Jc Gaston at [facility] CAD (coronary artery disease): Catalog Name: Atherosclerotic heart diseaseof [place] coronary artery without angina pectoris Significant Events:Surgical Procedure: Clinical Events This Visit, 31-Mar-2018, CABG x 3;- REIS toLAD;-SVG to PDA;-SVG to Diag ;Endoscopic harvest of right saphenous vein.Influenza- Influenza Virus: Immunizations, 20-Mar-2018 Hospital Providers:Provider RoleProvider Name Jc Hunter DNAR: DNAR Statusnone Activity:Other activity instructions: You have been referred to cardiac rehab, as anoutpatient. After your discharge from the hospital and home recovery period,you willhave your follow up visit with your grain cleaner and transfer operator. They will clear youto exercise and further refer you to an outpatient cardiac rehab facility. Labs 1: Lab Test(s)Basic Metabolic Panel, CBC, Magnesium Date To Be DrawnOnce the week following discharge by home care Call Results ToDr. Sal Sabillon andDr. Levi Pisano CommentsINRs to be done by [facility] coumadin [facility] Oxygen:Other Instructions Incentive spirometer 10x/hr while awake. [...] obtained from the Primary Care Physician or Chicken Hanger. - For chest tightness or pain, extreme [...] voiding. Wound Care Instructions:- Cleanse incisions with soapand water daily. No dressing, leave open to air.No lotions, creams or tub soaks. Call Provider If:-Redness, drainage or other problems with incisions, notify the CardiacSurgeon. - Signs and symptomsof Heart Failure: call your Chicken Hanger if you haveweight gain of 3 pounds or more in less than 3 days; shortness of breath atrest, with activity, or when lying flat; dizziness or fainting. Notify Cardiac Surgeon's office of any readmission to the hospital beforefollow-up appointment with Cardiac Surgeon. Diet: DietAdult Diabetic, Cardiac Hospital Course (Home Care/Gold Form):Hospital Course: Hos pital Course: include significant abnormal lab dechau39 yo WM with no prior history of CAD, who hasa past medical history of HTN,HLD, T2DM, [place]'s disease, hypothyroidism, COPD, AKASH on CPAP, prostate Spring/p prostatectomy in 2011, and psoriasis who was [facility] on [facility]/18 for CABG eval. Ptpresented to [place] with chest pressure and dyspnea. He as found to havebilat PEs, was started on Heparin gtt, and transferred to [facility]. He wasfound to have a troponin leak at 2.25. Cardiology was consulted and the patientwas diagnosed with ACS, NSTEMI. He underwent a TTE and cath. He had normal EF,mild AI, and triple vessel CAD so was transferred to [facility] for CABG eval.Pulm consulted for PE workup. Pt required unfractionated heparininfusion for7-10 days to take advantage of intrinsic fibrinolysis and clot stabilization,as well asan IVC filter.Endocrine consulted for evaluation of [place] disease and treatment periop.Also managed DM. 03/23/2018 OPERATION/PROCEDURE: by Severiano RodriguezapInferior vena cava filter. 03/31/18 OPERATION/PROCEDURE: by Dr. Hernandez x 3; REIS to LAD, SVG to PDA, SVG to DiagEndoscopic harvest of right saphenous vein CTICU course: HTN, endo following for DM and [place]'s disease, insulin gtt;one CT with air leak Transferred to T3 04/02 Floor course:- Endocrinology followed patient for DM and Addisons's disease and made finalrecommendations for going home- last CT pulled 04/03- 2 view CXR was done 04/04- epicardial wires were CUT 04/05- electrolytes were replaced as necessary- Patient was diuresed for post op volume overload with Lasix; preop vkiqml760.8 kg; day of discharge wt 107.5 kg- IVC filterwas placed on 03/23 preop, will be following up with vascular forretrieval- heparin gtt bridge to coumadin was started per Dr. Gaston for unprovoked PEs asper Pulmonary recs; needs at least 6 months of anticoagulation; [facility]- PT recs home with PT- anticipate discharge home with home advisor and PT- captain room service met with patient 04/07 to discuss discharge instructionsand care- patient had no complaints at discharge and all questions were answered HISTORYPMH: HTN, HLD, T2DM, Brigida's disease, hypothyroidism, COPD, OSAon CPAP,prostate ca s/p prostatectomy in 2011, psoriasis, remote hepatitis B, priorGERD, lumbar Dege nerative disk disease, arthritis, kidney stones (current,small), cataract, plantar fasciitis PSH: prostatectomy 2011, R cataract surgery, cholecystectomy, appendectomy,sinus surgery, vasectomy, bilatcarpal tunnel release surgery, ganglion cystremoval from hands, cystoscopy 2 weeks ago for microscopic hematuria, rootcanal 2 weeks ago. 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 [...] Care Agency: [facility] Ordered: RN/WARP WORKER, PTFace to Face Encounter Completed: yesDate of Encounter: [id number]-Rhz-[id number] Necessity for Homecare ( based on clinical findings):Short-term long term is needed to monitor for signs and symptoms ofdecomposition/adverse events as s/p cardiac surgery. Patient at high risk forre-hospitalization.Physical therapy services needed to restore ability to walk without support andestablish home exerciseprogram as patient is at high risk for [...] Care VisitHome Care to determine Rehab: [facility]Home [facility] to determine Weight Check: [facility] VisitHome Care to determine Wound Care: [facility] VisitHome Care to determine Provider FINAL REVIEW of Orders:Final Review: Final Review of Medication Reconciliation and Orders Completedby ROSA Reviewing ProviderTaylor ZACK Milligan at 07-Apr-2018 14:22:59 Name/Contact Info for Questions About Discharge OrdersDr Sy'riley [phone] Appointments:Coumadin (Warfarin) Follow-Up Monitoring: Physician/Dept/[facility] Coumad[facility] clinic Date/Time next PT/INR [id number]-2750 13:45 Phone [phone]; [address] Please bring insurancecard, drivers license, and medication list CommentsPlease arrive at 1:45 PM for your appt. goal INR 2-3; need at least6 months of coumadin for PE; Dr Pisano is managing Follow-Up Appointment 01: Physician/Dept/Evgeny Gaston - cardiac surgeon Scheduled Date/[id number]-Vch-[id number] 14:00 [facility] [address] [place] [address] - 2pm appointment [facility] [address] Phone NumberDr Sy's office [phone] Follow-Up Appointment 02: Physician/Dept/Trell. Sal Sabillon, PCP Scheduled Date/[id number]-Hgm-7017 11:00 [id number] [facility], [address], [place]. [address] Phone [phone] CommentsPlease arrive 10-15 minutes early, bring photo ID, insurance card,discharge summary, and list of current medications and dosages. If unable tokeep this appointment, please call to cancel. Follow-Up Appointment 03: Physician/Dept/Trell. Levi Pisano, Cardiology Scheduled Date/Oaue56-Tug-6086 14:30 [id number] [facility], [address], [address], [place]. [address] [phone] Phone [phone] CommentsPlease arrive 10-15 minutes early, bring photo ID, insurance card,discharge summary, and list of current medications and dosages. If unable tokeep this appointment, please call to cancel. Follow-Up Wprqmchoogk23: Physician/Dept/Service. [place], Endocrinology Scheduled Date/Lzrs24-Euj-4559 09:40 [id number] , [place]. [address] Phone [phone] CommentsPlease arrive 10-15 minutes early, bring photo ID, insurance card,discharge summary, and list of current medications and dosages. Ifunable tokeep this appointment, please call to cancel. Follow-Up Appointment 05: Physician/Dept/Trell. Severiano Stapleton, Vascular Surgery Scheduled Date/[id number]-Cbj-5090 15:[address] [place] [address] Phone [phone] CommentsPlease arrive 10-15 minutes early, bring photo ID, insurance card,discharge summary, and list of current medications and dosages. If unable tokeep this appointment, please call to cancel. Electronic Signatures:LudwigMary Riley (HEALTH AND SAFETY TECH-IRON WORKER APPRENTICE) (Signed 06-Apr-2018 18:53)Authored: DischargeOrders, CABG / Valve, Hospital Course (Home Care/GoldForm), Home Care Orders, Provider FINAL REVIEWof Orders, AppointmentsLillei Elder (CLIN COOR) (Signed 01-Apr-2018 14:23)Authored: DischargeOrders, Gold Form - Senior Financial Reporting Accountant SummaryKarolina Foster (RN) (Signed 02-Apr-2018 13:41)Authored: Discharge OrdersMonet Alcaraz (PT SVS REP) (Signed 07-Apr-2018 14:04)Authored: AppointmentsSoAlexandra galeano (PAC) (Signed 07-Apr-2018 14:22)Authored: Discharge Orders, CABG / Valve, Hospital Course (Home Care/GoldForm), Home Care Orders, Provider FINAL REVIEW of Orders, Appointments Last Updated: 07-Apr-2018 14:22 by Alexandra Milligan (PAC)Owatonna ClinicGLUCOSE-POCTon 74-80-5422Gcaogxd mass zohj976 mg/dLHigh [address] [place], [place] [address]Comment on above:Performed By: #### EMRAD ####NO LOCATION NEEDEDGlucose mass frdc320 mg/gPGnxr3122 Wilson StreetComment on above:Result Comment: Glu2: Fingertip - CapillarPerformed By: #### EMRAD ####NO LOCATION NEEDEDGlucose mass igex867 mg/kQLlte2922 Wilson StreetComment on above:Result Comment: Glu2: Fingertip - CapillarPerformed By: #### EMRAD ####NO LOCATION NEEDEDGlucose mass efht749 mg/eHUqts1122 Wilson StreetComment on above:Result Comment: Glu2: Fingertip - CapillarPerformed By: #### EMRAD ####NO LOCATION NEEDEDGlucose mass yfub534 mg/uPTbrs5822 Wilson StreetComment on above: Performed By: #### EMRAD ####NO LOCATION NEEDEDGlucose mass pljq392 mg/fDAnnd03 - 99[facility] RiverComment on above:Performed By: #### EMRAD ####NO LOCATION NEEDEDGlucose mass gexq179 mg/gDMirk29 - 99[facility] Comment on above:Performed By: #### EMRAD ####NO LOCATION NEEDEDMAGNESIUMon 81-63-3182Viwgmfdym mass conc2.15 mg/dLNormal1.60 - 2.40[facility] Toms RiverComment on above:Performed By: #### EMRAD ####NO LOCATION NEEDEDMagnesium mass conc2.30 mg/dLNormal1.60 - 2.40[facility] RiverComment on above: Performed By: #### EMRAD ####NO LOCATION NEEDEDRENAL FUNCTION PANELon 04-01-2018 Albumin mass conc3.7 g/dLNormal3.4 - 5.0[facility] RiverComment on above:Performed By: #### EMRAD ####NO LOCATION NEEDEDAnion gap 3 molar conc11 mmol/SFiadty98 - 20[facility] RiverComment on above:Performed By: #### EMRAD ####NO LOCATION NEEDEDCalcium mass conc8.8 mg/dLNormal8.6 - 10.6[facility] RiverComment on above:Performed By: #### EMRAD ####NO LOCATION NEEDEDChloride molar conc99 mmol/GVwmquj45 - 107[facility] RiverComment on above:Performed By: #### EMRAD ####NO LOCATION NEEDEDCreatinine mass conc1.35 mg/dLHigh0.50 - 1.30[facility] RiverComment on above: Performed By: #### EMRAD ####NO LOCATION NEEDEDGFR- AM.64 mL/min/1.73m2 Normal>60[facility] Toms RiverComment on above:Result Comment: CALCULATIONS OF ESTIMATED GFR ARE PERFORMED USING THE MDRD STUDY EQUATION FOR THE IDMS-TRACEABLE CREATININE METHODS. CLIN CHEM 2007;53:766-72Performed By: #### EMRAD ####NO LOCATION NEEDEDGFR-NON AM.53 mL/min/1.35e2Bupgvvgx>60 [facility] RiverComment on above:Performed By: #### EMRAD ####NO LOCATION NEEDEDGlucose mass qyty532 mg/uMEoal16 - 99[facility] Comment on above:Performed By: #### EMRAD ####NO LOCATION NEEDEDHCO3 molar conc (Bld)28 mmol/ZBarfen30 - 32[facility] RiverComment on above:Performed By: #### EMRAD ####NO LOCATION NEEDEDPhosphate mass conc3.3 mg/dLNormal2.5 - 4.9 [facility] Toms RiverComment on above:Result Comment: The performance characteristics of phosphorus testing in heparinized plasma have been validated by the individual laboratory site where testing is performed. Testing on heparinizedplasma is not approved by the FDA; however, such approval is not necessary.Performed By: #### EMRAD ####NO LOCATION NEEDEDPotassium molar conc4.2 mmol/LNormal3.5 - 5.3[facility] RiverComment on above:Performed By: #### EMRAD ####NO LOCATION NEEDEDSodium molar kdql676 mmol/IReo861 - 145[facility] RiverComment on above:Performed By: #### EMRAD ####NO LOCATION NEEDEDUrea nitrogen mass conc20 mg/dLNormal6 - 23[facility] RiverComment on above:Performed By: #### EMRAD ####NO LOCATION NEEDEDAlbumin mass concCanceledOwatonna ClinicComment on above:Order Comment: TEST RENAL FUNCTION PANEL WAS CANCELLED, 04/01/2018 07:29 DUPLICATE ORDER.Performed By: #### EMRAD ####NO LOCATION NEEDEDAnion gap 3 molar conc CancelOwatonna ClinicComment on above:Order Comment: TEST RENAL FUNCTION PANEL WAS CANCELLED, 04/01/2018 07:29 DUPLICATE ORDER.Performed By: #### EMRAD ####NO LOCATION NEEDEDCalcium mass concCanceledOwatonna ClinicComment on above:Order Comment: TEST RENAL FUNCTION PANEL WAS CANCELLED, 04/01/2018 07:29 DUPLICATE ORDER.Performed By: #### EMRAD ####NO LOCATION NEEDEDChloride molar concCancelOwatonna Clinic Comment on above:Order Comment: TEST RENAL FUNCTION PANEL WAS CANCELLED, 04/01/2018 07:29 DUPLICATE ORDER.Performed By: #### EMRAD ####NO LOCATION NEEDED Creatinine mass concCanBemidji Medical CenterComment on above: Order Comment: TEST RENAL FUNCTION PANEL WAS CANCELLED, 04/01/2018 07:29 DUPLICATE ORDER.Performed By: #### EMRAD ####NO LOCATION NEEDEDGFR- AM. CancelOwatonna ClinicComment on above:Order Comment: TEST RENAL FUNCTION PANEL WAS CANCELLED, 04/01/2018 07:29 DUPLICATE ORDER.Result Comment: CALCULATIONS OF ESTIMATED GFR ARE PERFORMED USING THE MDRD STUDY EQUATION FOR THE IDMS-TRACEABLE CREATININE METHODS. CLIN CHEM 2007;53:766-72 Performed By: #### EMRAD ####NO LOCATION NEEDEDGFR-NON AM.CanceledNoal [facility] RiverComment on above:Order Comment: TEST RENAL FUNCTION PANEL WAS CANCELLED, 04/01/2018 07:29 DUPLICATE ORDER.Performed By: #### EMRAD ####NO LOCATION NEEDEDGlucose mass concCanBemidji Medical Center Comment on above:Order Comment: TEST RENAL FUNCTION PANEL WAS CANCELLED, 04/01/2018 07:29 DUPLICATE ORDER.Performed By: #### EMRAD ####NO LOCATION NEEDED HCO3 molar conc (Bld)CanBemidji Medical CenterComment on above: Order Comment: TEST RENAL FUNCTION PANEL WAS CANCELLED, 04/01/2018 07:29 DUPLICATE ORDER.Performed By: #### EMRAD ####NO LOCATION NEEDEDPhosphate mass concCancelOwatonna ClinicComment on above:Order Comment: TEST RENAL FUNCTION PANEL WAS CANCELLED, 04/01/2018 07:29 DUPLICATE ORDER.Result Comment: The performance characteristics of phosphorus testing in heparinized plasma have been validated by the individual laboratory site where testing is performed. Testing on heparinizedplasma is not approved by the FDA; however, such approval is not necessary.Performed By: #### EMRAD ####NO LOCATION NEEDED Potassium molar concCanceledOwatonna ClinicComment on above: Order Comment: TEST RENAL FUNCTION PANEL WAS CANCELLED, 04/01/2018 07:29 DUPLICATE ORDER.Performed By: #### EMRAD ####NO LOCATION NEEDEDSodium molar conc CancelOwatonna ClinicComment on above:Order Comment: TEST RENAL FUNCTION PANEL WAS CANCELLED, 04/01/2018 07:29 DUPLICATE ORDER.Performed By: #### EMRAD ####NO LOCATION NEEDEDUrea nitrogen mass concCanceledOwatonna ClinicComment on above:Order Comment: TEST RENAL FUNCTION PANEL WAS CANCELLED, 04/01/2018 07:29 DUPLICATE ORDER.Performed By: #### EMRAD ####NO LOCATION NEEDEDAlbumin mass conc3.7 g/dLNormal3.4 - 5.0[facility] RiverComment on above:Performed By: #### EMRAD ####NO LOCATION NEEDED Anion gap 3 molar conc15 mmol/QGvawwr83 - 20[facility] RiverComment on above:Performed By: #### EMRAD ####NO LOCATION NEEDEDCalcium mass conc8.7 mg/dLNormal8.6 - 10.6[facility] RiverComment on above:Performed By: #### EMRAD ####NO LOCATION NEEDEDChloride molar peyp718 mmol/KRgrtqy46 - 107[facility] RiverComment on above:Performed By: #### EMRAD ####NO LOCATION NEEDEDCreatinine mass conc1.30 mg/dLNormal0.50 - 1.30[facility] RiverComment on above:Performed By: #### EMRAD ####NO LOCATION NEEDED GFR- AM.67 mL/min/1.01t5Wlszaf>60[facility] RiverComment on above:Result Comment: CALCULATIONS OF ESTIMATED GFR ARE PERFORMED USING THE MDRD STUDY EQUATION FOR THE IDMS-TRACEABLE CREATININE METHODS. CLIN CHEM 2007;53:766-72Performed By: #### EMRAD ####NO LOCATION NEEDEDGFR-NON AM. 55 mL/min/1.89h3Jybyzzyw>60[facility] RiverComment on above:Performed By: #### EMRAD ####NO LOCATION NEEDEDGlucose mass wiiy763 mg/xYKwxu96 - 99[facility] RiverComment on above:Performed By: #### EMRAD ####NO LOCATION NEEDEDHCO3 molar conc (Bld)26 mmol/QOqtglx72 - 32[facility] RiverComment on above:Performed By: #### EMRAD ####NO LOCATION NEEDEDPhosphate mass conc4.0 mg/dLNormal2.5 - 4.9[facility] T[facility] RiverComment on above: Result Comment: The performance characteristics of phosphorus testing in heparinized plasma have been validated by the individual laboratory site where testing is performed. Testing on heparinizedplasma is not approved by the FDA; however, such approval is not necessary.Performed By: #### EMRAD ####NO LOCATION NEEDEDPotassium molar conc4.4 mmol/LNormal3.5 - 5.3[facility] RiverComment on above:Performed By: #### EMRAD ####NO LOCATION NEEDEDSodium molar nfse702 mmol/DNfempo327 - 145[facility] RiverComment on above: Performed By: #### EMRAD ####NO LOCATION NEEDEDUrea nitrogen mass conc20 mg/dL Normal6 - 23[facility] RiverComment on above:Performed By: #### EMRAD ####NO LOCATION NEEDEDTH CHEST 1 VIEWon 36-55-6760GQ CHEST 1 VIEWMRN: [id number] Name: DON ELKINS STUDY:TH CHEST 1 VIEW; 04/01/2018 3:56 am INDICATION:Signs/Symptoms: CT surgey. COMPARISON:03/31/2018 ORDERING CLINICIAN:GERMAN JACK FINDINGS:ET tube is terminating at the level of clavicle heads. Enteric tubeis in place with the tip not included. Right IJ [place]-Jsoe catheter isterminating in the right main pulmonary [...] enlarged cardiac silhouette size. Electronically signed by: Luca ARANDAHealthsouth - Specialty Hospital Of UnionACT-HIGH RANGEon 22-55-3742VNK-HIGH XDAKB686 SECONDS Zzbqbv35 - [address] [place], [place] [address]Comment on above:Performed By: #### EMRAD ####NO LOCATION NEEDEDACT-HIGH EDQQZ871 GXHXBGUSvbi27 - [address] [place], [place] [address]Comment on above:Performed By: #### EMRAD ####NO LOCATION NEEDED ACT-HIGH VNHAP140 KMVKIPUFgfk05 - [address] [place], [place] [address]Comment on above:Performed By: #### EMRAD ####NO LOCATION NEEDEDACT-HIGH DGAIM594 SECONDS [facility] - [address] [place], [place] [address]Comment on above:Performed By: #### EMRAD ####NO LOCATION NEEDEDACT-HIGH EHBVY600 CJTYIAHUeby41 - [address] [place], [place] [address]Comment on above:Performed By: #### EMRAD ####NO LOCATION NEEDEDACT-HIGH MOTZG212 IBOGWIGRlem31 - [address] [place], [place] [address]Comment on above: Performed By: #### EMRAD ####NO LOCATION NEEDEDACT-HIGH EMCPJ164 WCIDQPNTjunej70 - [address] [place], [place] [address]Comment on above:Performed By: #### EMRAD ####NO LOCATION NEEDEDARTERIAL BLOOD GASon 79-51-0563GJJA VBXKCL-TLKBP-3.2 mmol/LLow- 2.0 - 3.0[facility] RiverComment on above:Performed By: #### EMRAD ####NO LOCATION NEEDEDOxygen ppres (BldA)63 mm[Hg]Low85 - 95[facility] Toms RiverComment on above:Performed By: #### EMRAD ####NO LOCATION EYNAYMOFP300 bzSqQgsa89 - 42[facility] RiverComment on above:Performed By: #### EMRAD ####NO LOCATION NEEDEDpH (Bld)7.28 [pH]Low7.38 - 7.42[facility] Toms RiverComment on above:Performed By: #### EMRAD ####NO LOCATION NEEDEDRBC Auto #/vol (Bld)24.0 mmol/OKaqdry08.0 - 26.0[facility] Toms RiverComment on above:Performed By: #### EMRAD ####NO LOCATION AYTJHVZD319 %Low94 - 100[facility] RiverComment on above:Performed By: #### EMRAD ####NO LOCATION NEEDEDARTERIAL FULL PANELon 43-42-4914Qkayk gap 3 molar conc9 mmol/LLow 10 - 25[facility] RiverComment on above:Performed By: #### EMRAD ####NO LOCATION NEEDEDBASE EXCESS-BLOOD0.3 mmol/LNormal-2.0 - 3.0[facility] T[facility] RiverComment on above:Performed By: #### EMRAD ####NO LOCATION NEEDED CALCIUM,IONIZED1.09 mmol/LLow1.10 - 1.33[facility] Toms RiverComment on above:Performed By: #### EMRAD ####NO LOCATION NEEDEDChloride molar cspt673 mmol/BAulvvx29 - 107[facility] RiverComment on above:Performed By: #### EMRAD ####NO LOCATION NEEDEDGlucose mass mvgv332 mg/gRLpyr08 - 99[facility] RiverComment on above:Performed By: #### EMRAD ####NO LOCATION NEEDEDHematocrit Auto Volume Fraction (Bld)32.0 %Low41.0 - 52.0[facility] RiverComment on above:Performed By: #### EMRAD ####NO LOCATION NEEDEDHGB,SBOYUBLQYV32.9 g/dLLow13.5 - 17.5[facility] Comment on above:Performed By: #### EMRAD ####NO LOCATION NEEDEDLactate molar conc2.4 mmol/LHigh0.4 - 2.0[facility] RiverComment on above:Performed By: #### EMRAD ####NO LOCATION NEEDEDOxygen ppres (BldA)82 mm[Hg]Low85 - 95[facility] RiverComment on above:Performed By: #### EMRAD ####NO LOCATION PFTKFYYLM336 oaCxGuqzkn09 - 42[facility] RiverComment on above:Performed By: #### EMRAD ####NO LOCATION NEEDEDpH (Bld)7.39 [pH]Normal7.38 - 7.42[facility] RiverComment on above:Performed By: #### EMRAD ####NO LOCATION NEEDEDPotassium molar conc4.5 mmol/LNormal3.5 - 5.3[facility] RiverComment on above:Performed By: #### EMRAD ####NO LOCATION NEEDED RBC Auto #/vol (Bld)25.4 mmol/JRkklws69.0 - 26.0[facility] Comment on above:Performed By: #### EMRAD ####NO LOCATION BQVVIYXY238 %Mszqhy13 - 100[facility] RiverComment on above:Performed By: #### EMRAD ####NO LOCATION NEEDEDSodium molar jyyr622 mmol/WWls826 - 145[facility] RiverComment on above:Performed By: #### EMRAD ####NO LOCATION NEEDEDAnion gap 3 molar conc11 mmol/UTezlxk76 - 25[facility] RiverComment on above: Performed By: #### EMRAD ####NO LOCATION NEEDEDBASE NYZFCR-ERACI-4.5 mmol/L Normal-2.0 - 3.0[facility] RiverComment on above:Performed By: #### EMRAD ####NO LOCATION NEEDEDCALCIUM,IONIZED1.13 mmol/LNormal1.10 - 1.33[facility] RiverComment on above:Performed By: #### EMRAD ####NO LOCATION NEEDEDChloride molar ches939 mmol/TDhdnfn15 - 107[facility] RiverComment on above:Performed By: #### EMRAD ####NO LOCATION NEEDEDGlucose mass vpux322 mg/tYRuht85 - 99[facility] RiverComment on above: Performed By: #### EMRAD ####NO LOCATION NEEDEDHematocrit Auto Volume Fraction (Bld)32.0 %Low41.0 - 52.0[facility] RiverComment on above:Performed By: #### EMRAD ####NO LOCATION NEEDEDHGB,SUUCOZBZKH33.9 g/dLLow13.5 - 17.5[facility] RiverComment on above:Performed By: #### EMRAD ####NO LOCATION NEEDEDLactate molar conc2.5 mmol/LHigh0.4 - 2.0[facility] RiverComment on above:Performed By: #### EMRAD ####NO LOCATION NEEDEDOxygen ppres (BldA)72 mm[Hg]Low85 - 95[facility] RiverComment on above: Performed By: #### EMRAD ####NO LOCATION EVNLJRRUN444 diLaTzeu23 - 42[facility] RiverComment on above:Performed By: #### EMRAD ####NO LOCATION NEEDEDpH (Bld)7.37 [pH]Low7.38 - 7.42[facility] Toms RiverComment on above:Performed By: #### EMRAD ####NO LOCATION NEEDEDPotassium molar conc4.8 mmol/LNormal3.5 - 5.3[facility] RiverComment on above:Performed By: #### EMRAD ####NO LOCATION NEEDEDRBC Auto #/vol (Bld)24.9 mmol/QWdslex67.0 - 26.0[facility] RiverComment on above:Performed By: #### EMRAD ####NO LOCATION PMEYOKOT448 %Kovsys50 - 100[facility] Toms RiverComment on above: Performed By: #### EMRAD ####NO LOCATION NEEDEDSodium molar crzp617 mmol/ZOzb688 - 145[facility] Toms RiverComment on above:Performed By: #### EMRAD ####NO LOCATION NEEDEDAnion gap 3 molar conc14 mmol/EOnqtem81 - 25[facility] T[facility] RiverComment on above:Performed By: #### EMRAD ####NO LOCATION NEEDED BASE ZIWSBR-TQTTH-1.6 mmol/LNormal-2.0 - 3.0[facility] Toms RiverComment on above:Performed By: #### EMRAD ####NO LOCATION NEEDEDCALCIUM,IONIZED1.19 mmol/LNormal1.10 - 1.33[facility] Toms RiverComment on above:Performed By: #### EMRAD ####NO LOCATION NEEDEDChloride molar tapn377 mmol/CLwxvuh02 - 107[facility] Toms RiverComment on above:Performed By: #### EMRAD ####NO LOCATION NEEDEDGlucose mass atkb052 mg/sJRlcv89 - 99[facility] Comment on above:Performed By: #### EMRAD ####NO LOCATION NEEDEDHematocrit Auto Volume Fraction (Bld)32.0 %Low41.0 - 52.0[facility] RiverComment on above:Performed By: #### EMRAD ####NO LOCATION NEEDEDHGB,QDSXFMVVUH95.9 g/dLLow 13.5 - 17.5[facility] RiverComment on above:Performed By: #### EMRAD ####NO LOCATION NEEDEDLactate molar conc2.9 mmol/LHigh0.4 - 2.0[facility] RiverComment on above:Performed By: #### EMRAD ####NO LOCATION NEEDED Oxygen ppres (BldA)79 mm[Hg]Low85 - 95[facility] RiverComment on above:Performed By: #### EMRAD ####NO LOCATION NOLCARCKV312 waIoQyxt13 - 42[facility] RiverComment on above:Performed By: #### EMRAD ####NO LOCATION NEEDEDpH (Bld)7.34 [pH]Low7.38 - 7.42[facility] RiverComment on above:Performed By: #### EMRAD ####NO LOCATION NEEDEDPotassium molar conc5.2 mmol/LNormal3.5 - 5.3[facility] RiverComment on above:Performed By: #### EMRAD ####NO LOCATION NEEDEDRBC Auto #/vol (Bld)24.3 mmol/KQflrzn30.0 - 26.0[facility] RiverComment on above:Performed By: #### EMRAD ####NO LOCATION IQLQSRPI687 %Pudedt09 - 100[facility] RiverComment on above: Performed By: #### EMRAD ####NO LOCATION NEEDEDSodium molar kbwk312 mmol/LNormal 136 - 145[facility] RiverComment on above:Performed By: #### EMRAD ####NO LOCATION NEEDEDAnion gap 3 molar conc12 mmol/KFevuaa17 - 25[facility] RiverComment on above:Performed By: #### EMRAD ####NO LOCATION NEEDED BASE WYNEHJ-FCRIX-8.3 mmol/LNormal-2.0 - 3.0[facility] RiverComment on above:Performed By: #### EMRAD ####NO LOCATION NEEDEDCALCIUM,IONIZED1.21 mmol/LNormal1.10 - 1.33[facility] RiverComment on above:Performed By: #### EMRAD ####NO LOCATION NEEDEDChloride molar qjsb834 mmol/YSjxbdv29 - 107[facility] RiverComment on above:Performed By: #### EMRAD ####NO LOCATION NEEDEDGlucose mass fglx911 mg/nEHtww86 - 99[facility] Comment on above:Performed By: #### EMRAD ####NO LOCATION NEEDEDHematocrit Auto Volume Fraction (Bld)29.0 %Low41.0 - 52.0[facility] RiverComment on above:Performed By: #### EMRAD ####NO LOCATION NEEDEDHGB,CALCULATED9.9 g/dLLow 13.5 - 17.5[facility] RiverComment on above:Performed By: #### EMRAD ####NO LOCATION NEEDEDLactate molar conc2.7 mmol/LHigh0.4 - 2.0[facility] RiverComment on above:Performed By: #### EMRAD ####NO LOCATION NEEDED Oxygen ppres (BldA)67 mm[Hg]Low85 - 95[facility] RiverComment on above:Performed By: #### EMRAD ####NO LOCATION OETIVWAML054 gvHrCvlr32 - 42[facility] RiverComment on above:Performed By: #### EMRAD ####NO LOCATION NEEDEDpH (Bld)7.31 [pH]Low7.38 - 7.42[facility] RiverComment on above:Performed By: #### EMRAD ####NO LOCATION NEEDEDPotassium molar conc5.1 mmol/LNormal3.5 - 5.3[facility] RiverComment on above:Performed By: #### EMRAD ####NO LOCATION NEEDEDRBC Auto #/vol (Bld)25.2 mmol/KLmskao52.0 - 26.0[facility] RiverComment on above:Performed By: #### EMRAD ####NO LOCATION YUZGDFXQ554 %Mkzfes62 - 100[facility] RiverComment on above: Performed By: #### EMRAD ####NO LOCATION NEEDEDSodium molar csnv210 mmol/LNormal 136 - 145[facility] RiverComment on above:Performed By: #### EMRAD ####NO LOCATION NEEDEDAnion gap 3 molar conc12 mmol/KCbulgm17 - 25[facility] RiverComment on above:Performed By: #### EMRAD ####NO LOCATION NEEDED BASE WYLDEJ-QLYDI-5.7 mmol/LLow-2.0 - 3.0[facility] RiverComment on above:Performed By: #### EMRAD ####NO LOCATION NEEDEDCALCIUM,IONIZED1.16 mmol/L Normal1.10 - 1.33[facility] RiverComment on above:Performed By: #### EMRAD ####NO LOCATION NEEDEDChloride molar ygnr930 mmol/PWxoiiz26 - 107[facility] RiverComment on above:Performed By: #### EMRAD ####NO LOCATION KHMLQZHBL172 %NormalHealth[facility] RiverComment on above: Performed By: #### EMRAD ####NO LOCATION NEEDEDGlucose mass ovfr761 mg/fHGhwp60 - 99[facility] RiverComment on above:Performed By: #### EMRAD ####NO LOCATION NEEDEDHematocrit Auto Volume Fraction (Bld)30.0 %Low41.0 - 52.0[facility] RiverComment on above:Performed By: #### EMRAD ####NO LOCATION NEEDEDHGB,JSHXSRMUOG17.2 g/dLLow13.5 - 17.5[facility] Comment on above:Performed By: #### EMRAD ####NO LOCATION NEEDEDLactate molar conc3.3 mmol/LHigh0.4 - 2.0[facility] RiverComment on above:Performed By: #### EMRAD ####NO LOCATION NEEDEDOxygen ppres (BldA)97 mm[Hg]High85 - 95[facility] RiverComment on above:Performed By: #### EMRAD ####NO LOCATION PANTAFLUG286 ahWlNaqxeh21 - 42[facility] RiverComment on above:Performed By: #### EMRAD ####NO LOCATION NEEDEDpH (Bld)7.36 [pH]Low7.38 - 7.42[facility] RiverComment on above:Performed By: #### EMRAD ####NO LOCATION NEEDEDPotassium molar conc5.1 mmol/LNormal3.5 - 5.3[facility] RiverComment on above:Performed By: #### EMRAD ####NO LOCATION NEEDEDRBC Auto #/vol (Bld)22.6 mmol/VQlxtph16.0 - 26.0[facility] RiverComment on above:Performed By: #### EMRAD ####NO LOCATION HTVLBJMJ516 %Kezfqh01 - 100[facility] RiverComment on above:Performed By: #### EMRAD ####NO LOCATION NEEDEDSodium molar vlae033 mmol/KFyz314 - 145[facility] RiverComment on above:Performed By: #### EMRAD ####NO LOCATION NEEDEDAnion gap 3 molar conc13 mmol/OKsjdyd31 - 25[facility] RiverComment on above: Performed By: #### AFPA3 ####[id number], [place] [address]KJOT ITQPQR-GBOLN-3.0 mmol/LLow-2.0 - 3.0[facility] RiverComment on above: Performed By: #### AFPA3 ####[id number] [place] [address] CALCIUM,IONIZED1.16 mmol/LNormal1.10 - 1.33[facility] RiverComment on above:Performed By: #### AFPA3 ####[id number] [place] [address] Chloride molar dddw412 mmol/HPyxdxn86 - 107[facility] RiverComment on above:Performed By: #### AFPA3 ####[id number] [place] [address] JON338 %NormalHealth[facility] RiverComment on above:Performed By: #### AFPA3 ####[id number], [place] [address]Txllooy mass wjpw934 mg/dL High74 - 99[facility] RiverComment on above:Performed By: #### AFPA3 ####[id number], [place] [address]Zozmahqtcn Auto Volume Fraction (Bld)31.0 %Low41.0 - 52.0[facility] RiverComment on above:Performed By: #### AFPA3 ####[id number], [place] [address]OKG,CSKZGKLFQL07.5 g/dLLow13.5 - 17.5[facility] RiverComment on above:Performed By: #### AFPA3 ####[id number], [place] [address]Kllxlsx molar conc3.9 mmol/L High0.4 - 2.0[facility] RiverComment on above:Performed By: #### AFPA3 ####[id number], [place] [address]Brychg ppres (BldA)105 mm[Hg] High85 - 95[facility] RiverComment on above:Performed By: #### AFPA3 ####[id number], [place] [address]FMZ783 euNvWkghqd99 - 42[facility] RiverComment on above:Performed By: #### AFPA3 ####[id number], [place] [address]sQ (Bld)7.37 [pH]Low7.38 - 7.42[facility] RiverComment on above:Performed By: #### AFPA3 ####[id number], [place] [address]Iqtymquqa molar conc5.0 mmol/LNormal3.5 - 5.3[facility] RiverComment on above:Performed By: #### AFPA3 ####[id number], [place] [address]TPK Auto #/vol (Bld)22.0 mmol/PPhuzai12.0 - 26.0[facility] RiverComment on above:Performed By: #### AFPA3 ####[id number], [place] [address]KV127 %Pqppge77 - 100[facility] Comment on above:Performed By: #### AFPA3 ####[id number], [place] [address]Izxkob molar ohmj340 mmol/HVcq602 - 145[facility] Comment on above:Performed By: #### AFPA3 ####[id number], [place] [address]Waxwo gap 3 molar conc12 mmol/WUprzcr06 - 25[facility] Comment on above:Performed By: #### AFPA3 ####[id number], [place] [address]RRZG MAPQMX-TDGSU-6.5 mmol/LLow-2.0 - 3.0[facility] Comment on above:Performed By: #### AFPA3 ####[id number], [place] [address]JASPKYD,IONIZED1.28 mmol/LNormal1.10 - 1.33[facility] Comment on above:Performed By: #### AFPA3 ####[id number], [place] [address]Vokofyfg molar sdjd512 mmol/ERhnulj31 - 107[facility] Comment on above:Performed By: #### AFPA3 ####[id number], [place] [address]SKK734 %NormalHealth[facility] RiverComment on above:Performed By: #### AFPA3 ####[id number], [place] [address]Bthynpm mass genb630 mg/fNBhzz23 - 99[facility] RiverComment on above:Performed By: #### AFPA3 ####[id number], [place] [address]Dsaqcvprvc Auto Volume Fraction (Bld)30.0 %Low41.0 - 52.0[facility] RiverComment on above: Performed By: #### AFPA3 ####[id number] [place] [address] HGB,ZFWMJTVEHZ29.2 g/dLLow13.5 - 17.5[facility] RiverComment on above:Performed By: #### AFPA3 ####[id number] [place] [address] Lactate molar conc4.0 mmol/LCritically high0.4 - 2.0[facility] Comment on above:Performed By: #### AFPA3 ####[id number], [place] [address]Fsdikw ppres (BldA)243 mm[Hg]High85 - 95[facility] Comment on above:Performed By: #### AFPA3 ####[id number], [place] [address]IPI986 yjRqLovo79 - 42[facility] RiverComment on above: Performed By: #### AFPA3 ####[id number], [place] [address]aO (Bld) 7.29 [pH]Low7.38 - 7.42[facility] RiverComment on above:Performed By: #### AFPA3 ####[id number], [place] [address]Jhgeceglj molar conc4.8 mmol/LNormal3.5 - 5.3[facility] RiverComment on above:Performed By: #### AFPA3 ####[id number], [place] [address]YFF Auto #/vol (Bld)22.1 mmol/MClnveb45.0 - 26.0[facility] RiverComment on above:Performed By: #### AFPA3 ####[id number], [place] [address]QH[address]294 %Rdmekz82 - 100[facility] RiverComment on above:Performed By: #### AFPA3 ####[id number], [place] [address]Bbxnfb molar lbcd480 mmol/NLza168 - 145[facility] RiverComment on above:Performed By: #### AFPA3 ####[id number], [place] [address]Tczix gap 3 molar conc11 mmol/L Sqbixu58 - 25[facility] RiverComment on above:Performed By: #### AFPA3 ####[id number], [place] [address]ZMAH AIXEZD-KWGEH-4.9 mmol/L Low-2.0 - 3.0[facility] RiverComment on above:Performed By: #### AFPA3 ####[id number], [place] [address]WJUCZAP,IONIZED1.04 mmol/LLow 1.10 - 1.33[facility] RiverComment on above:Performed By: #### AFPA3 ####[id number], [place] [address]Wuromfnz molar qxvj610 mmol/LNormal 98 - 107[facility] RiverComment on above:Performed By: #### AFPA3 ####[id number], [place] [address]OBA648 %Normal[facility] RiverComment on above:Performed By: #### AFPA3 ####[id number], [place] [address]Fztwazh mass xiwm619 mg/wRJpdw20 - 99[facility] RiverComment on above:Performed By: #### AFPA3 ####[id number], [place] [address]Eegslyudly Auto Volume Fraction (Bld)29.0 %Low41.0 - 52.0 [facility] RiverComment on above:Performed By: #### AFPA3 ####[id number], [place] [address]UZI,CALCULATED9.9 g/dLLow13.5 - 17.5[facility] RiverComment on above:Performed By: #### AFPA3 ####[id number], [place] [address]Jhjcoxm molar conc4.0 mmol/L Critically high0.4 - 2.0[facility] RiverComment on above:Performed By: #### AFPA3 ####[id number], [place] [address]Xxxzed ppres (BldA) 252 mm[Hg]High85 - 95[facility] RiverComment on above:Performed By: #### AFPA3 ####[id number], [place] [address]HIH005 haRfIafoxp35 - 42 [facility] RiverComment on above:Performed By: #### AFPA3 ####[id number], [place] [address]vH (Bld)7.35 [pH]Low7.38 - 7.42[facility] RiverComment on above:Performed By: #### AFPA3 ####[id number], [place] [address]Wikfzyxcz molar conc6.1 mmol/LCritically high3.5 - 5.3[facility] RiverComment on above:Performed By: #### AFPA3 ####[id number], [place] [address]AGL Auto #/vol (Bld)22.6 mmol/L Iyivaq44.0 - 26.0[facility] RiverComment on above:Performed By: #### AFPA3 ####[id number], [place] [address]YI396 %Omqohj42 - 100[facility] RiverComment on above:Performed By: #### AFPA3 ####[id number], [place] [address]Coydys molar swss704 mmol/ANsi062 - 145[facility] RiverComment on above:Performed By: #### AFPA3 ####[id number], [place] [address]Kkbbp gap 3 molar conc12 mmol/QVquyww53 - 25[facility] RiverComment on above:Performed By: #### AFPA3 ####[id number], [place] [address]HBTJ TKDQSI-OUKWC-6.2 mmol/LLow-2.0 - 3.0[facility] RiverComment on above:Performed By: #### AFPA3 ####[id number], [place] [address]NKXNOSD,IONIZED1.04 mmol/LLow1.10 - 1.33[facility] RiverComment on above:Performed By: #### AFPA3 ####[id number], [place] [address]Plourdhs molar thhq897 mmol/VEirlqh88 - 107[facility] RiverComment on above:Performed By: #### AFPA3 ####[id number], [place] [address]YTJ658 %Normal[facility] RiverComment on above:Performed By: #### AFPA3 ####[id number] [place] [address] Glucose mass oxyz279 mg/tPQegj19 - 99[facility] RiverComment on above:Performed By: #### AFPA3 ####[id number] [place] [address] Hematocrit Auto Volume Fraction (Bld)29.0 %Low41.0 - 52.0[facility] RiverComment on above:Performed By: #### AFPA3 ####[id number], [place] [address]KTF,CALCULATED9.9 g/dLLow13.5 - 17.5[facility] RiverComment on above:Performed By: #### AFPA3 ####[id number], [place] [address]Firfbhk molar conc3.8 mmol/LHigh0.4 - 2.0[facility] RiverComment on above:Performed By: #### AFPA3 ####[id number], [place] [address]Diondl ppres (BldA)232 mm[Hg]High85 - 95[facility] RiverComment on above:Performed By: #### AFPA3 ####[id number], [place] [address]TNV235 izUgPmvhly11 - 42[facility] Comment on above:Performed By: #### AFPA3 ####[id number], [place] [address]xI (Bld)7.36 [pH]Low7.38 - 7.42[facility] RiverComment on above:Performed By: #### AFPA3 ####[id number] [place] [address] Potassium molar conc6.5 mmol/LCritically high3.5 - 5.3[facility] RiverComment on above:Performed By: #### AFPA3 ####[id number], [place] [address]HHQ Auto #/vol (Bld)23.2 mmol/WWssvkz20.0 - 26.0[facility] RiverComment on above:Performed By: #### AFPA3 ####[id number], [place] [address]UY7090 %Uglcjl50 - 100[facility] Comment on above:Performed By: #### AFPA3 ####[id number], [place] [address]Lpsyoa molar qxqs877 mmol/WDry674 - 145[facility] Comment on above:Performed By: #### AFPA3 ####[id number], [place] [address]Bjprw gap 3 molar conc11 mmol/UZbrkgg50 - 25[facility] Comment on above:Performed By: #### AFPA3 ####[id number], [place] [address]KKVP GWACIA-ANQAQ-0.8 mmol/LNormal-2.0 - 3.0[facility] Comment on above:Performed By: #### AFPA3 ####[id number], [place] [address]BFVOGHE,IONIZED1.03 mmol/LLow1.10 - 1.33[facility] Comment on above:Performed By: #### AFPA3 ####[id number], [place] [address]Cojywobw molar pmho759 mmol/OWgmpbz07 - 107[facility] Comment on above:Performed By: #### AFPA3 ####[id number], [place] [address]YLZ395 %Normal[facility] RiverComment on above:Performed By: #### AFPA3 ####[id number], [place] [address]Ozexzgb mass grje478 mg/uMEuon45 - 99[facility] RiverComment on above:Performed By: #### AFPA3 ####[id number], [place] [address]Iqipcchhpz Auto Volume Fraction (Bld)28.0 %Low41.0 - 52.0[facility] RiverComment on above: Performed By: #### AFPA3 ####[id number] [place] [address] HGB,CALCULATED9.5 g/dLLow13.5 - 17.5[facility] RiverComment on above: Performed By: #### AFPA3 ####[id number], [place] [address]Xurybbx molar conc3.8 mmol/LHigh0.4 - 2.0[facility] RiverComment on above: Performed By: #### AFPA3 ####[id number], [place] [address]Qoibax ppres (BldA)312 mm[Hg]High85 - 95[facility] RiverComment on above: Performed By: #### AFPA3 ####[id number], [place] [address]JNJ187 zjTkVqog47 - 42[facility] RiverComment on above:Performed By: #### AFPA3 ####[id number], [place] [address]xU (Bld)7.33 [pH]Low7.38 - 7.42[facility] RiverComment on above:Performed By: #### AFPA3 ####[id number], [place] [address]Lzauiwbdc molar conc6.5 mmol/L Critically high3.5 - 5.3[facility] RiverComment on above:Performed By: #### AFPA3 ####[id number], [place] [address]OOY Auto #/vol (Bld) 24.3 mmol/OFayupu88.0 - 26.0[facility] RiverComment on above: Performed By: #### AFPA3 ####[id number], [place] [address]PI[address] % Oeqrfp39 - 100[facility] RiverComment on above:Performed By: #### AFPA3 ####[id number], [place] [address]Vdhedy molar jerr563 mmol/L Qjf741 - 145[facility] RiverComment on above:Performed By: #### AFPA3 ####[id number], [place] [address]Cxhbn gap 3 molar conc12 mmol/L Wvsykf77 - 25[facility] RiverComment on above:Performed By: #### AFPA3 ####[id number], [place] [address]YRFY WVKYCJ-TTNKN-9.1 mmol/L Normal-2.0 - 3.0[facility] RiverComment on above:Performed By: #### AFPA3 ####[id number], [place] [address]DSSMYLO,IONIZED0.87 mmol/LLow 1.10 - 1.33[facility] RiverComment on above:Performed By: #### AFPA3 ####[id number], [place] [address]Lvcaviqj molar cczv164 mmol/LNormal 98 - 107[facility] RiverComment on above:Performed By: #### AFPA3 ####[id number], [place] [address]FJO847 %Normal[facility] RiverComment on above:Performed By: #### AFPA3 ####[id number], [place] [address]Alvscnx mass widd985 mg/pMXqht06 - 99[facility] RiverComment on above:Performed By: #### AFPA3 ####[id number], [place] [address]Pxwbebsnuy Auto Volume Fraction (Bld)27.0 %Low41.0 - 52.0 [facility] RiverComment on above:Performed By: #### AFPA3 ####[id number], [place] [address]ASW,CALCULATED9.2 g/dLLow13.5 - 17.5[facility] RiverComment on above:Performed By: #### AFPA3 ####[id number], [place] [address]Tfztblf molar conc3.1 mmol/LHigh0.4 - 2.0[facility] RiverComment on above:Performed By: #### AFPA3 ####[id number], [place] [address]Wiyemx ppres (BldA)392 mm[Hg]High85 - 95[facility] RiverComment on above:Performed By: #### AFPA3 ####[id number], [place] [address]PVB520 qqNiKdew29 - 42[facility] RiverComment on above:Performed By: #### AFPA3 ####[id number], [place] [address]qP (Bld)7.35 [pH]Low7.38 - 7.42[facility] RiverComment on above:Performed By: #### AFPA3 ####[id number], [place] [address]Mdkabjwbc molar conc5.1 mmol/LNormal3.5 - 5.3[facility] RiverComment on above:Performed By: #### AFPA3 ####[id number], [place] [address]HCZ Auto #/vol (Bld)25.9 mmol/SXoaapp52.0 - 26.0[facility] RiverComment on above:Performed By: #### AFPA3 ####[id number], [place] [address]EB[address] %Dclhhr58 - 100[facility] Comment on above:Performed By: #### AFPA3 ####[id number], [place] [address]Umbdii molar bpgz246 mmol/ZKjd128 - 145[facility] Comment on above:Performed By: #### AFPA3 ####[id number], [place] [address]Jwknl gap 3 molar conc14 mmol/JQlcetl09 - 25[facility] Comment on above:Performed By: #### AFPA3 ####[id number], [place] [address]RYLJ NFUUJU-ORQVV-7.6 mmol/LLow-2.0 - 3.0[facility] Comment on above:Performed By: #### AFPA3 ####[id number], [place] [address]CAPDGLP,IONIZED1.10 mmol/LNormal1.10 - 1.33[facility] Comment on above:Performed By: #### AFPA3 ####[id number], [place] [address]Yphtiqrw molar nbhr564 mmol/LXxeiab43 - 107[facility] Comment on above:Performed By: #### AFPA3 ####[id number], [place] [id number] %NormalHealth[facility] RiverComment on above:Performed By: #### AFPA3 ####[id number], [place] [address]Fhhchdp mass iaej731 mg/pLVqlt41 - 99[facility]:Performed By: #### AFPA3 ####[id number], [place] [address]Ugsmsidkvj Auto Volume Fraction (Bld)36.0 %Low41.0 - 52.0[facility] RiverComment on above: Performed By: #### AFPA3 ####[id number] [place] [address] HGB,JAHMPOUPJB56.2 g/dLLow13.5 - 17.5[facility] RiverComment on above:Performed By: #### AFPA3 ####[id number] [place] [address] Lactate molar conc3.1 mmol/LHigh0.4 - 2.0[facility] RiverComment on above:Performed By: #### AFPA3 ####[id number] [place] [address] Oxygen ppres (BldA)111 mm[Hg]High85 - 95[facility] RiverComment on above:Performed By: #### AFPA3 ####[id number], [place] [address]KKQ9 47 piSiKrdl24 - 42[facility] RiverComment on above:Performed By: #### AFPA3 ####[id number], [place] [address]xB (Bld)7.30 [pH]Low7.38 - 7.42[facility] RiverComment on above:Performed By: #### AFPA3 ####[id number], [place] [address]Kibtggzno molar conc5.3 mmol/L Normal3.5 - 5.3[facility] RiverComment on above:Performed By: #### AFPA3 ####[id number], [place] [address]ICM Auto #/vol (Bld)23.1 mmol/BTznomo46.0 - 26.0[facility] RiverComment on above:Performed By: #### AFPA3 ####[id number], [place] [address]CM556 %Jxhgxd23 - 100[facility] RiverComment on above:Performed By: #### AFPA3 ####[id number], [place] [address]Ispnul molar nwbb308 mmol/ARjw901 - 145[facility] RiverComment on above:Performed By: #### AFPA3 ####[id number], [place] [address]Uegyc gap 3 molar conc13 mmol/L Jkfqty78 - 25[facility] RiverComment on above:Performed By: #### AFPA3 ####[id number], [place] [address]RILN UAHKGV-QIBSG-6.2 mmol/L Low-2.0 - 3.0[facility] RiverComment on above:Performed By: #### AFPA3 ####[id number], [place] [address]LGIZSDJ,IONIZED1.20 mmol/L Normal1.10 - 1.33[facility] T[facility] RiverComment on above:Performed By: #### AFPA3 ####[id number], [place] [address]Bxacyubz molar jmfv461 mmol/L Gmdcsd95 - 107[facility] RiverComment on above:Performed By: #### AFPA3 ####[id number], [place] [address]QZA[address]68 %NormalHealth[facility] - [facility] Toms RiverComment on above:Performed By: #### AFPA3 ####[id number], [place] [address]Dgrbubi mass wdzv296 mg/oFEffk60 - 99[facility] RiverComment on above:Performed By: #### AFPA3 ####[id number], [place] [address]Nuuugilryu Auto Volume Fraction (Bld)40.0 %Low41.0 - 52.0 [facility] RiverComment on above:Performed By: #### AFPA3 ####[id number], [place] [address]LLX,SJACELWXOH48.6 g/rGMdikon76.5 - 17.5[facility] RiverComment on above:Performed By: #### AFPA3 ####[id number], [place] [address]Qoortbu molar conc2.3 mmol/LHigh0.4 - 2.0[facility] RiverComment on above:Performed By: #### AFPA3 ####[id number], [place] [address]Ufgfkd ppres (BldA)383 mm[Hg]High85 - 95[facility] RiverComment on above:Performed By: #### AFPA3 ####[id number], [place] [address]GEQ013 aePaVdns60 - 42[facility] RiverComment on above:Performed By: #### AFPA3 ####[id number], [place] [address]xD (Bld)7.30 [pH]Low7.38 - 7.42[facility] RiverComment on above:Performed By: #### AFPA3 ####[id number], [place] [address]Tothyilld molar conc4.6 mmol/LNormal3.5 - 5.3[facility] RiverComment on above:Performed By: #### AFPA3 ####[id number], [place] [address]TRI Auto #/vol (Bld)23.6 mmol/JGuwzvn04.0 - 26.0[facility] RiverComment on above:Performed By: #### AFPA3 ####[id number], [place] [address]SL[address] %Odwmam10 - 100[facility] Comment on above:Performed By: #### AFPA3 ####[id number], [place] [address]Fsorht molar wqfu143 mmol/RJyz970 - 145[facility] Comment on above:Performed By: #### AFPA3 ####[id number], [place] [address]MMTDIDE, IONIZEDon 60-88-4257LJHKMGT,IONIZED1.24 mmol/LNormal1.10 - 1.33 [facility] RiverComment on above:Result Comment: The performance characteristics of ionized calcium tested in heparinized plasma or serum have been validated by the individual laboratory site where testing is performed. Testing on heparinized plasma or serum is not approved by the FDA; however, such approval is not necessary.Performed By: #### EMRAD ####NO LOCATION NEEDEDCBCon 83-77-6762Cplbcjzcrmm distribution width Auto Ratio (RBC)12.8 %Lkyhfz10.5 - 14.5 [facility] RiverComment on above:Performed By: #### EMRAD ####NO LOCATION NEEDEDHematocrit Auto Volume Fraction (Bld)37.9 %Low41.0 - 52.0[facility] RiverComment on above:Performed By: #### EMRAD ####NO LOCATION NEEDEDHemoglobin mass conc (Bld)12.7 g/dLLow13.5 - 17.5[facility] RiverComment on above:Performed By: #### EMRAD ####NO LOCATION NEEDED MCHC Auto mass conc (RBC)33.5 g/xJVwqhip32.0 - 36.0[facility] Comment on above:Performed By: #### EMRAD ####NO LOCATION NEEDEDMCV Auto Entitic volume (RBC)92 cDBjlfwq34 - 100[facility] RiverComment on above: Performed By: #### EMRAD ####NO LOCATION NEEDEDNucleated RBC/100 WBC Ratio (Bld) 0.0 /100 WBCNormal0.0-0.0[facility] RiverComment on above:Performed By: #### EMRAD ####NO LOCATION NEEDEDPlatelets Auto #/vol (Bld)201 10*3/uLNormal 150 - 450[facility] RiverComment on above:Performed By: #### EMRAD ####NO LOCATION NEEDEDRBC Auto #/vol (Bld)4.12 x10E12/LLow4.50 - 5.90[facility] RiverComment on above:Performed By: #### EMRAD ####NO LOCATION NEEDEDWBC Auto #/vol (Bld)19.7 10*3/uLHigh4.4 - 11.3[facility] RiverComment on above:Performed By: #### EMRAD ####NO LOCATION NEEDED Erythrocyte distribution width Auto Ratio (RBC)12.7 %Qiqzwd11.5 - 14.5[facility] RiverComment on above:Performed By: #### CBC ####[id number], [place] [address]Aomtduduvl Auto Volume Fraction (Bld)33.7 %Low41.0 - 52.0[facility] RiverComment on above:Performed By: #### CBC ####[id number], [place] [address]Njvdlpyvil mass conc (Bld)11.5 g/dL Low13.5 - 17.5[facility] RiverComment on above:Performed By: #### CBC ####[id number], [place] [address]LEKS Auto mass conc (RBC)34.1 g/dL Guwmus07.0 - 36.0[facility] RiverComment on above:Performed By: #### CBC ####[id number], [place] [address]XIM Auto Entitic volume (RBC)92 jNEcdtra71 - 100[facility] RiverComment on above:Performed By: #### CBC ####[id number], [place] [address]Yxdwagdys RBC/100 WBC Ratio (Bld)0.0 /100 WBCNormal0.0-0.0[facility] RiverComment on above: Performed By: #### CBC ####[id number], [place] [address]Pfvaegfzi Auto #/vol (Bld)167 10*3/tZBoginx326 - 450[facility] RiverComment on above:Performed By: #### CBC ####[id number], [place] [address]ZEW Auto #/vol (Bld)3.66 x10E12/LLow4.50 - 5.90[facility] RiverComment on above:Performed By: #### CBC ####[id number], [place] [address]SIH Auto #/vol (Bld)14.7 10*3/uLHigh4.4 - 11.3[facility] RiverComment on above:Performed By: #### CBC ####[id number] [place] [address] Erythrocyte distribution width Auto Ratio (RBC)12.7 %Sewvza32.5 - 14.5[facility] RiverComment on above:Performed By: #### CBC ####[id number], [place] [address]Shwoblqssb Auto Volume Fraction (Bld)40.5 %Low41.0 - 52.0[facility] RiverComment on above:Performed By: #### CBC ####[id number], [place] [address]Dhsmfmnkjy mass conc (Bld)13.9 g/dL Lgjsuy34.5 - 17.5[facility] RiverComment on above:Performed By: #### CBC ####[id number], [place] [address]GUIT Auto mass conc (RBC)34.3 g/nRXbhwze86.0 - 36.0[facility] RiverComment on above:Performed By: #### CBC ####[id number], [place] [address]GAJ Auto Entitic volume (RBC)91 cSZludqn36 - 100[facility] RiverComment on above:Performed By: #### CBC ####[id number], [place] [address]Sejefdfqx RBC/100 WBC Ratio (Bld)0.0 /100 WBCNormal0.0-0.0[facility] RiverComment on above: Performed By: #### CBC ####[id number], [place] [address]Gkwvdbvhg Auto #/vol (Bld)220 10*3/rXFtwwzl729 - 450[facility] RiverComment on above:Performed By: #### CBC ####[id number], [place] [address]QAD Auto #/vol (Bld)4.44 x10E12/LLow4.50 - 5.90[facility] RiverComment on above:Performed By: #### CBC ####[id number], [place] [address]OXQ Auto #/vol (Bld)8.6 10*3/uLNormal4.4 - 11.3[facility] RiverComment on above:Performed By: #### CBC ####[id number] [place] [address] COAGULATION SCREENon 87-24-0762bAOO Coag time (Bld)27 sLow28 - 38[facility]Come[facility] on above:Result Comment: Note new reference range as of 03/10/2018. THE APTT IS NO LONGER USED FOR MONITORING UNFRACTIONATED HEPARIN THERAPY. FOR MONITORING HEPARIN THERAPY, USE THE HEPARIN ASSAY.Performed By: #### EMRAD ####NO LOCATION NEEDEDINR Coag RelTime (PPP)1.2 {INR}High0.9 - 1.1[facility]Come[facility] on above:Performed By: #### EMRAD ####NO LOCATION NEEDEDProthrombin time (PT) Coag time (PPP)13.8 sHigh9.7 - 12.7[facility]Come[facility] on above:Result Comment: Note new reference range as of 03/10/2018.Performed By: #### EMRAD ####NO LOCATION NEEDEDaPTT Coag time (Bld)27 sLow28 - [address] [place], [place] [address] on above:Result Comment: Note new reference range as of 03/10/2018. THE APTT IS NO LONGER USED FOR MONITORING UNFRACTIONATED HEPARIN THERAPY. FOR MONITORING HEPARIN THERAPY, USE THE HEPARIN ASSAY.Performed By: #### COAGS ####[id number], [place] [address]GYE Coag RelTime (PPP)1.4 {INR}High0.9 - 1.1[facility] on above:Performed By: #### COAGS ####[id number], [place] [address]Oshetnuvaqo time (PT) Coag time (PPP)16.0 sHigh9.7 - 12.7 [facility] on above:Result Comment: Note new reference range as of 03/10/2018.Performed By: #### COAGS ####[id number], [place] [address]aHGP Coag time (Bld)66 [facility]8 - 38[facility] RiverComment on above:Result Comment: Note new reference range as of 03/10/2018. THE APTT IS NO LONGER USED FOR MONITORING UNFRACTIONATED HEPARIN THERAPY. FOR MONITORING HEPARIN THERAPY, USE THE HEPARIN ASSAY.Performed By: #### COAGS ####[id number], [place] [address]BZY Coag RelTime (PPP) 1.2 {INR}High0.9 - 1.1[facility] RiverComment on above:Performed By: #### COAGS ####[id number], [place] [address]Aljfbmzpdbm time (PT) Coag time (PPP)13.4 sHigh9.7 - 12.7[facility] RiverComment on above: Result Comment: Note new reference range as of 03/10/2018.Performed By: #### COAGS ####[id number], [place] [address]DIMQ PANEL, ARTERIALon 18-76-0475MWCPC HGB1.4 %Normal0.0 - 5.0[facility] RiverComment on above:Performed By: #### EMRAD ####NO LOCATION NEEDEDHemoglobin mass conc (Bld) 11.5 g/dLLow13.5 - 17.5[facility] RiverComment on above:Performed By: #### EMRAD ####NO LOCATION NEEDEDHemoglobin mass conc (Bld)2.1 %AbnormalHealth[facility] - [facility] T[facility] RiverComment on above:Result Comment: REF VALUESNONSMOKERS 0.5-1.5%SMOKERS 0.5-10.0%Performed By: #### EMRAD ####NO LOCATION NEEDEDMET HGB 1.0 %Normal0.0 - 1.5[facility] RiverComment on above:Performed By: #### EMRAD ####NO LOCATION NEEDEDOXY HGB95.5 %Lbuhfc18.0 - 98.0[facility] RiverComment on above:Performed By: #### EMRAD ####NO LOCATION NEEDED DEOXY HGB1.2 %Normal0.0 - 5.0[facility] RiverComment on above: Performed By: #### COOXA ####[id number], [place] [address]Exvnjsbvyc mass conc (Bld)12.0 g/dLLow13.5 - 17.5[facility] RiverComment on above:Performed By: #### COOXA ####[id number] [place] [address] Hemoglobin mass conc (Bld)2.1 %AbnormalHealth[facility] - [facility] Toms RiverComment on above:Result Comment: REF VALUESNONSMOKERS 0.5-1.5%SMOKERS 0.5-10.0%Performed By: #### COOXA ####[id number], [place] [address]JGR HGB1.3 %Normal 0.0 - 1.5[facility] RiverComment on above:Performed By: #### COOXA ####[id number], [place] [address]EAG HGB95.4 %Hodbor79.0 - 98.0[facility] RiverComment on above:Performed By: #### COOXA ####[id number], [place] [address]XZRLE HGB0.3 %Normal0.0 - 5.0[facility] RiverComment on above:Performed By: #### COOXA ####[id number], [place] [address]Pdhvowrixu mass conc (Bld)11.7 g/dLLow13.5 - 17.5[facility] RiverComment on above:Performed By: #### COOXA ####[id number], [place] [address]Bsyzohaogr mass conc (Bld)2.0 %AbnormalHealth[facility] - [facility] Toms RiverComment on above:Result Comment: REF VALUESNONSMOKERS 0.5-1.5%SMOKERS 0.5-10.0%Performed By: #### COOXA ####[id number], [place] [address]MWT HGB1.1 %Normal0.0 - 1.5[facility] Comment on above:Performed By: #### COOXA ####[id number], [place] [address]IMW HGB96.5 %Trwfol21.0 - 98.0[facility] RiverComment on above:Performed By: #### COOXA ####[id number] [place] [address] DEOXY HGB0.6 %Normal0.0 - 5.0[facility] RiverComment on above: Performed By: #### COOXA ####[id number], [place] [address]Vsuqbjkeyd mass conc (Bld)1.8 %AbnormalHealth[facility] - [facility] T[facility] RiverComment on above:Result Comment: REF VALUESNONSMOKERS 0.5-1.5%SMOKERS 0.5-10.0%Performed By: #### COOXA ####[id number], [place] [address]Ktglbnryrg mass conc (Bld)11.4 g/dL Low13.5 - 17.5[facility] RiverComment on above:Performed By: #### COOXA ####[id number], [place] [address]CRI HGB1.0 %Normal0.0 - 1.5[facility] RiverComment on above:Performed By: #### COOXA ####[id number], [place] [address]ZJF HGB96.6 %Cecsvt95.0 - 98.0[facility] RiverComment on above:Performed By: #### COOXA ####[id number], [place] [address]YWEIN HGB0.3 %Normal0.0 - 5.0[facility] RiverComment on above:Performed By: #### COOXA ####[id number], [place] [address]Gppcpxkcuy mass conc (Bld)2.0 %AbnormalHealth[facility] - [facility] T[facility] RiverComment on above:Result Comment: REF VALUESNONSMOKERS 0.5- 1.5%SMOKERS 0.5-10.0%Performed By: #### COOXA ####[id number], [place] [address]Obqvccvmjc mass conc (Bld)11.3 g/dLLow13.5 - 17.5[facility] RiverComment on above:Performed By: #### COOXA ####[id number], [place] [address]IYV HGB0.7 %Normal0.0 - 1.5[facility] RiverComment on above:Performed By: #### COOXA ####[id number], [place] [address]BGC HGB97.0 %Dxnjzj69.0 - 98.0[facility] Comment on above:Performed By: #### COOXA ####[id number], [place] [address]LTNSC HGB-0.1 %Low0.0 - 5.0[facility] RiverComment on above: Performed By: #### COOXA ####[id number], [place] [address]Marglmtymb mass conc (Bld)2.2 %AbnormalHealth[facility] - [facility] RiverComment on above:Result Comment: REF VALUESNONSMOKERS 0.5-1.5%SMOKERS 0.5-10.0%Performed By: #### COOXA ####[id number], [place] [address]Mvipzkzsld mass conc (Bld)11.3 g/dL Low13.5 - 17.5[facility] RiverComment on above:Performed By: #### COOXA ####[id number], [place] [address]IIX HGB0.8 %Normal0.0 - 1.5[facility] RiverComment on above:Performed By: #### COOXA ####[id number], [place] [address]KLB HGB97.1 %Aqjewe88.0 - 98.0[facility] RiverComment on above:Performed By: #### COOXA ####[id number], [place] [address]OKMWI HGB1.0 %Normal0.0 - 5.0[facility] RiverComment on above:Performed By: #### COOXA ####[id number], [place] [address]Rfkfkkizeq mass conc (Bld)1.9 %AbnormalHealth[facility] - [facility] T[facility] RiverComment on above:Result Comment: REF VALUESNONSMOKERS 0.5- 1.5%SMOKERS 0.5-10.0%Performed By: #### COOXA ####[id number], [place] [address]Jxekjuophp mass conc (Bld)10.9 g/dLLow13.5 - 17.[address] [place], [place] [address]Comment on above:Performed By: #### COOXA ####[id number], [place] [address]PEE HGB1.7 %High0.0 - 1.5[facility] RiverComment on above:Performed By: #### COOXA ####[id number], [place] [address]FPK HGB95.4 %Awrhas44.0 - 98.0[facility] Comment on above:Performed By: #### COOXA ####[id number], [place] [address]UGMTH HGB1.5 %Normal0.0 - 5.0[facility] RiverComment on above:Performed By: #### COOXA ####[id number] [place] [address] Hemoglobin mass conc (Bld)13.2 g/dLLow13.5 - 17.[address] [place] [address] Comment on above:Performed By: #### COOXA ####[id number], [place] [address]Aahwgokksl mass conc (Bld)1.6 %AbnormalHealth[facility] Comment on above:Result Comment: REF VALUESNONSMOKERS 0.5-1.5%SMOKERS 0.5-10.0% Performed By: #### COOXA ####[id number], [place] [address]WNS HGB0.8 %Normal0.0 - 1.5[facility] RiverComment on above:Performed By: #### COOXA ####[id number], [place] [address]RQT HGB96.2 %Egnzbj52.0 - 98.0[facility] RiverComment on above:Performed By: #### COOXA ####[id number], [place] [address]UJTUU HGB0.7 %Normal0.0 - 5.0[facility] RiverComment on above:Performed By: #### COOXA ####[id number], [place] [address]Asyqqrbwuf mass conc (Bld)1.5 %NormalHealth[facility] - [facility] T[facility] RiverComment on above:Result Comment: REF VALUESNONSMOKERS 0.5- 1.5%SMOKERS 0.5-10.0%Performed By: #### COOXA ####[id number], [place] [address]Uotjloezub mass conc (Bld)14.7 g/vIEttllw27.5 - 17.5[facility] RiverComment on above:Performed By: #### COOXA ####[id number], [place] [address]UVA HGB0.9 %Normal0.0 - 1.5[facility] RiverComment on above:Performed By: #### COOXA ####[id number], [place] [address]BYW HGB96.9 %Nbwdvu11.0 - 98.0[facility] Comment on above:Performed By: #### COOXA ####[id number], [place] [address]EZTXTMNX, A.M.on 59-27-7404ACGYGNUE, A.M.24.7 ug/dLHigh5.0 - 20.0[facility] RiverComment on above:Performed By: #### CORTA ####[id number], [place] [address]JVHUGPGR, P.M.on 76-73-7161KGSEDTKW, P.M.17.4 ug/dLHigh2.5 - 10.0[facility] RiverComment on above:Performed By: #### EMRAD ####NO LOCATION NEEDEDCORTISOL, P.M.31.3 ug/dLHigh2.5 - 10.0[facility] RiverComment on above:Performed By: #### EMRAD ####NO LOCATION NEEDEDCORTISOL, P.M.44.9 ug/dLHigh2.5 - 10.0[facility] Comment on above:Performed By: #### EMRAD ####NO LOCATION NEEDEDDaily Progress Note-Endocrinologyon 41-24-5924Hmehecr mass concConsult Type: subsequent visit/care Service: Endocrinology Subjective Data:DON ELKINS is a 67 yearold Male who is Hospital Day # 14. CABG Today First case, patient given HCT 30 mg by mouth once at 5 am , Cortisollevel checked one hour later, HCt 25 mg IV q6hrs to be started as of NOW (6 am)and continued as q6hrs. Objective Data: Objective Information:T YPRVFjV7Clfax02.60285459/8894%Date/Time03/31 4: 4: 4: 4: 4:07Range(35.8C - 36.4C ) (74 - 97 ) (17 - 20 ) (110 - 159 )/ (65 - 92 ) (94%- 97% ) Pain with Activity reported at 03/30 7:51: 3Pain at Rest reported at 03/30 19:00: 0 Physical Exam: Constitutional: Well developed, awake/alert/oriented x3, no distress, alert andcooperativeGastrointestinal: Nondistended, soft, non-tender, no rebound tenderness orguarding,no masses palpable, no organomegaly, +BS, no bruitsSkin: Warm and dry, no lesions, no rashes Medication: Medications: Continuous Medications 1. Nitroglycerin 50 mg/ D5W 250 mL Infusion: 10 mcg/min IntraVenous 2. Sodium Chloride 0.9% .: 250 mL IntraVenous Scheduled Me dications 1. Aspirin Chewable: 81 mg Oral Daily2. Atorvastatin: 40mg Oral Daily3. Carvedilol: 12.5 mg Oral 2 Times a Day4. Chlorhexidine Gluconate 4% Topical: 1 application(s) Topical Once5. Citalopram: 20 mg Oral Daily6. Docusate 50 mg - Senna 8.6 m tablet(s) Oral 2 Times a Day7. Fludrocortisone: 0.05 mg Oral 8. Heparin (Repeat Bolus) Injectable: 4000 unit(s) IntraVenous Push Every 6Sejcr9. Hydrocortisone Na Succinate Injectable: 25 mg IntraVenous Push Every 9Oaxwn93. Insulin Glargine (Lantus) Injectable: 20 unit(s) SubCutaneous Every [id number]. Insulin Lispro (HumaLOG) Injectable: 12 unit(s) SubCutaneous 3 Times aDay Before Meals12. Insulin Lispro Mild Corrective Scale: unit(s) SubCutaneous 3 Times a DayBefore Meals13. Levothyroxine: 150 microgram(s) Oral Daily14. Mupirocin 2%: 0.5 application(s) Each Nostril 2 Times a Day15. Pantoprazole: 40 mg Oral Daily16. rOPINIRole: 6 mg Oral 17. Sodium Chloride 0.65% Nasal [place]: 2 spray(s) Each Nostril 2 Times aDay PRN Medications 1. Dextrose 50% in Water Injectable: 25 g sukhwinder(s) IntraVenous Push Every [id number]. Glucagon Injectable: 1 mg IntraMuscular Every 15 Minutes3. Nitroglycerin SubLingual: 0.4 mg SubLingual Every 5 Minutes4. Polyethylene Glycol: 17 gram(s) OralDaily Currently Suspended Medications 1. Hydrocortisone: 10 mg Oral 2. Hydrocortisone: 5 mg Oral 3. Hydrocortisone: 2.5 mg Oral Recent Lab Results: Results: I have reviewed these laboratory results: Glucose_POCT Trending View [id number] 21:35:00 30-Mar-2018 17:24:00 30-Mar-2018 12:06:00 30-Mar-2018 07:46:00 29-Mar-2018 20:49:[id number] H 216 H 205 H 153 H 244 H Renal Function Panel Trending View [id number] 19:18:00 29-Mar-2018 19:58:00Glucose, [id number] H 237 [id number] 132 LK4.4 4.6EN060 99Bicarbonate, Serum23 19 LAnion Gap, Serum16 07GEX60 H 24 HCREAT1.68 H 1.32 HGFR-Non Agqantps32 A 54 AGFR- Zkbwbvzj95 A 65Calcium, Serum9.5 9.3Phosphorus, Serum4.5 4.2ALB4.1 3.9 Assessment and Plan:Assessment: Mr. Elkins is a 67 yo WM with noknown history of CAD, who has a past medicalhistory of HTN, HLD, T2DM, [place]'s disease, hypothyroidism, COPD, AKASH onCPAP, prostate ca s/p prostatectomy in 2011, and psoriasis who was [facility] consulte d fr evaluation of Brigida disease and treatment periop Patient was on supra- therapeutic dose of HCT 20-0-20 , fludrocortisone 0.1 ,mgdailyPatient has uncontrolled HTN and uncontrolled BSMost likely tomorrow (03/23) IVC filter placement 1. [place]'s Disease-- Fludrocortisone 0.05 mg 4 times weekly ( and friday)-- 03/31:CABG Today First case, patient given HCT 30 mg by mouth once at 5 am , Cortisollevel checked one hour later, HCt 25 mg IV q6hrs to be started as of NOW (6 am)and continued as v0itq--Zhkkv Cortisol level q2 hrs after pm dose of HCT IV--Will follow 2. T2DM-- Patient received lantus 20 units instead of 30 yesterday in the evening--Pt having CABG today, to eb on insulin drip as per CICU protocol post op--Will follow Please page with questions [phone] Patient seen and examined, plan discussed with Dr Quevedo Signature/Cosignature/Attestation:Attending AttestationI saw and evaluated the patient. I [...] patient (as noted in the above attestation) [id number] Electronic Signatures:Starr Quevedo) (Signed 02-Apr-2018 10:01)Authored: Signature/Cosignature/AttestationCo-Signer: Service, Subjective Data, Objective Data, Assessment and Plan,Signature/Cosignature/AttestationHasmukh Stephenson (Resident)) (Signed 31-Mar-2018 06:23)Authored: Service, Subjective Data, Objective Data, Assessment and Plan,Signature/Cosignature/Attestation Last Updated: 02-Apr-2018 10:01 by Starr Quevedo)[facility] ClinicEMR ADDONon [id number] CONFIRMATIONREQUEST REC'DNCook Hospital Comment on above:Performed By: #### EMRAD ####NO LOCATION NEEDEDFIBRINOGENon 48-41-7124HJXJZXGSZZOuuwbrstXdoopzSO [facility] Medical CenterComment on above: Order Comment: TEST FIBRINOGEN WAS CANCELLED, 03/31/2018 14:47 ?Cancel Reason: Discontinued.Performed By: #### EMRAD ####NO LOCATION XMJNKFOKZMJOGQJS968 mg/dL Tjixew034 - 400[facility] Toms RiverComment on above:Performed By: #### FIB ####[id number], [place] [address]APSDQWZIHV895 mg/hPVwbgjn338 - 400[facility] Toms RiverComment on above:Performed By: #### FIB ####[id number], [place] [address]IXUFCLP-IPOSsh 44-90-7680Mzbxewi mass fkbi616 mg/jYLbfn[address] [place], [place] [address]Comment on above: Performed By: #### EMRAD ####NO LOCATION NEEDEDGlucose mass wiby248 mg/rGKpko7[address] [place], [place] [address]Comment on above:Performed By: #### EMRAD ####NO LOCATION NEEDEDGlucose mass wsnj558 mg/eZBowh[address] Comment on above:Performed By: #### EMRAD ####NO LOCATION NEEDEDGlucose mass alxa406 mg/wMHzcp0622 Wilson StreetComment on above:Performed By: #### EMRAD ####NO LOCATION NEEDEDGlucose mass itsi539 mg/zKErgp5722 Wilson StreetComment on above:Performed By: #### EMRAD ####NO LOCATION NEEDEDGlucose mass ljqp024 mg/zWJrrj44[address] Comment on above:Performed By: #### GLUPO ####[id number], [place] [address]Gbiukos and Physical - Critical Careon 28-22-5095Rixkzow and Physical - Critical CareService:Critical Care Service: Catalina Baptiste History of Present Illness:HPI:HPI: 67 yo M with HTN, DLD, T2DM, Addisson's, GERD, prostate ca s/pprostatectomy in 2011, hypothyroidism, psoriasis transferred to medicine at [facility] from [facility] on 03/18 for CABG eval Patient reports 2 mo nth h/o intermittent exertional left sided chest painlasting less than 30 min, relieved with rest, with no other associatedsymptoms. He woke up 03/16 at 1AM with chest pressure associated with dyspnea,and his took him to [facility] where he was diagnosed with a PE,started on heparin gtt, then transferred to [facility]. 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 PRIOR IMAGINGCTA at [place]:Pulmonary emboli involving the bilateral lobar segmental, and severalsubsegmental branches (RUL, RML, RLL, FIDEL, LLL). LHC at [facility]:LAD prox: 30%LAD mid: 95%Diag 3rd: 99%RCA: 85 %PLV: 50%Circ: 95% TTE at [facility]:EF 60-65%Mild LA dialtionNo valvular abnormalities Comorbidities: Comorbid Conditionsdiabetes, hypertension Diabtetes TypeType 2 Insulin Dependentno DM Acuity or Statusunknown DM Complicationsunknown Allergies: No Known Allergies: Medications Prior to Admission: aspirin 81 mg oral tablet, chewable: 1 tab(s) orally once a qitFumymmx222+D 600 mg-200 intl units oral tablet: orally [...] oral delayed release capsule: 1 cap(s) orally oncea dayrOPINIRole 8 mg oral tablet, extended release: 1 tab(s) orally once a daysimvastatin 20 mg oral tablet: 1 tab(s) orally once a day (at bedtime). Review of Systems:Incomplete ROS: patient intubated, sedated Objective:Objective Information: Objective Information T XRKNVxG1Mikyf62.287260765/5994%Date/Time03/31 4: 15: 4: 14: 15:00Range(35.8C - 36.4C ) (80 - 102 ) (18 - 20 ) (110 - 139 )/ (59 - 88 )(94% - 100% ) Vent Fhwekngq67/13 14:34BoogiOWY90/13 14:11Rate Set (zenia aths/min)14105/31 14:11Tidal Volume Set (mL)56280/13 14:11PEEP (cm H2O)8105/31 14:11FiO2 (%)50 Vent Data03/31 14:11Ventilator IdentificationXL 7303/31 14:11Start Tmhh30-Nvo-878420/13 14:11Start Time14: 14:11Ventilator Days and Hours0 Hours Non-Wletnmhh11/13 14:11High Inspiratory Pressure (cm H2O)45 Physical Exam: Neurological: intubated/sedated/neuromusclar blocked. No spontaneous movementofextremities.Cardiovascular: Sinus tach 101. Midsternal incision with dressing CDI.Mediastinal chesttube x 2, left pleural chest tube x 1, draining minimalserosang. A-wires present, AAI @ 90. Right SVG site with lauren bandage intact.Pulses palpable throughout.Respiratory/Thorax: Intubated, mechanically ventilated. Lungs clear. Equalchest expansionGenitourinary: Her intact, draining clear yellow urine.Gastrointestinal: OG to LIWS. Abdomen soft, non-distended. Bowel sounds faint.Skin: Warm and dry, no lesions, no rashesConstitutional: intubated/sedatedEyes: PERRL, EOMI, clear scleraENMT: mucousmembranes moist, no apparent injury, no lesions seenHead/Neck: RIJ MAC with SCG, trachea midlineExtremities: normal extremities, no cyanosis edema, contusions or wounds, noclubbingPsychological: sedated Medications: Medications: Continuous Medications 1. Clevidipine0.5 mg / mL Infusion: 1 mg/hr IntraVenous 2. Insulin Regular 100 units/ NaCL 0.9% 100 mL Intensive Infusion: 3 units/hr IntraVenous 3. PLASMA-LYTE Infusion: 1000 mL IntraVenous 4. Propofol 10 mg/mL Infusion: 5 mcg/kg/min IntraVenous Scheduled Medications 1. Docusate: 100 mg Oral 2 Times a Day2. fentaNYL Injectable: 50 microgram(s) IntraVenous Push Once3. Hydrocorti sone Na Succinate Injectable: 25 mg IntraVenous Push Every 3Dwodu1. Lidocaine 5% TransDermal: 1 patch TransDermal Every 24 Hours5. Pantoprazole Injectable: 40 mg IntraVenous Push Every 24 Hours PRN Medications 1. Bisacodyl Rectal: 10 mg Rectal Daily2. Calcium Chloride IVPB: 0.5 gram(s) IntraVenous Piggyback Every 8 Hours3. Calcium Chloride IVPB: 1 gram(s) IntraVenous Piggyback Every 8 Hours4. Dextrose 50% in Water Injectable: 25 gram(s) IntraVenous Push Every 87Dtvpjoi9. Glucagon Injectable: 1 mg IntraMuscular Every 15 [...] Hours10. Potassium Chloride 40 mEq/Sterile Water 100 mLPremix IVPB: 40 mEqIntraVenous Piggyback Every 6 Hours Currently Suspended Medications 1. Aspirin Enteric Coated: 81 mg Oral Daily2. Atorvastatin: 40 mg Oral Daily3. Insulin Lispro Customizable Corrective Scale: unit(s) SubCutaneous Every4 Hours Recent Lab Results: Results:CBC: 03/31/2018 07:56 \ Hgb / \ 13.9 /WBC Plt 8.6 220 / Hct \ / 40.5 L \ RBC: 4.44 L MCV: 91 RFP: 03/30/2018 19:18NA+ Cl- BUN / 136 101 24 H / Glucose 193 H K+ HCO3- Creat \ 4.4 23 1.68 H \Calcium : 9.5Anion Gap : 16 Albumin : 4.1 Phos : 4.5 Coagulation: 03/31/2018 07:56PT / 13.4 H /-------< INR < 1.2 HPTT\ 66 H \ Fibrinogen: 356 Recent Arterial Blood Gas Results 03/31/2018 07:18mO1360oX7.34kGV771MI511Tauu Excess-3.2Ruvepqowvdj26.6 Assessmentand Plan:Other:Assessment: Assessment:67 year old with a history of CAD, HTN, HLD, DM2, Gerd, [place]'s, andhypothyroid presents from the OR s/p CABG [...] Consult, OOB to chair as tolerated, chair positionif not tolerated- CAM ICU score qshift- Sleep/wake [...] pain and SOB, CT of chest revealed bilaterallobarsegmental and several PEs in subsegmental branches. 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 -->- f/u post op CXR- Once NMB reversed begin CPAP trials and extubate when criteria met.- Wean FiO2 maintaining SpO2 >92%.- ABGs as needed- IS q1h and OOB to chair when extubated GI: NPO. H/o GERD-->- Continue PPI- NPO- Colace and miralax : Baseline serum creatinine 1.4-1.6. -->-Continue her catheter for strict I/Os.- Goal UOP [...] of active infection. 03/19 MRSA screen and ur ine culturenegative.- Trend temp q4h- Periop Cefuroxime 1.5g x 5 doses Proph:SCDsPPI G: LineRight IJ MAC w PACLeft Filiberto Richey Seen with the critical care attending, Dr. Barnett: Continue SICU care. Kylie, IRON WORKER APPRENTICE#[id number] Code Status: Code StatusFull Code Signatures/Attestation/Certification:Critical Care PatientI have reviewed and evaluated the [...] has been prepared by the attending physician/ERAN- billingproviderof these critical care services.Attending Provider Inpatient Certification StatementI certify this p atientsneed for inpatient care based on the above documentation including; the orderto admit as inpatient, the anticipated length of stay, diagnosis, problem listand plan of care, and discharge plan.Electronic Signatures:Abelino Klein) (Signed 01-Apr-2018 08:00)Authored: Signatures/Attesta tion/CertificationCo-Signer: Objective, Assessment and Plan,Signatures/Attestation/CertificationMargot Lyons (HEALTH AND SAFETY TECH-IRON WORKER APPRENTICE) (Signed 31-Mar-2018 16:14)Authored: Service, History of Present Illness, Comorbidities, Allergies,Medications Prior to Admission, Review of Systems, Objective, Assessment andPlan, Signatures/Attestation/Certification Last Updated: 01-Apr-2018 08:00 by Abelino Klein)Normal[facility] MAGNESIUMon 90-87-1321Ibdscamoz mass conc2.67 mg/dLHigh1.60 - 2.40[facility] Toms RiverComment on above:Performed By: #### EMRAD ####NO LOCATION NEEDEDMV FULL PANELon 16-11-3932Hdggx gap 3 molar conc12 mmol/WCssobc92 - 25[facility] Toms RiverComment on above:Performed By: #### EMRAD ####NO LOCATION NEEDED BASE WNZLPX-SQJFP-1.2 mmol/LNormalHealthSouth - [facility] Toms RiverComment on above: Performed By: #### EMRAD ####NO LOCATION NEEDEDCALCIUM,IONIZED1.19 mmol/LNormal 1.10 - 1.33[facility] Toms RiverComment on above:Performed By: #### EMRAD ####NO LOCATION NEEDEDChloride molar fdwg894 mmol/XOohpiu62 - 107[facility] Toms RiverComment on above:Performed By: #### EMRAD ####NO LOCATION NEEDED Glucose mass cmvg607 mg/bNXagl38 - 99[facility] Toms RiverComment on above:Performed By: #### EMRAD ####NO LOCATION NEEDEDHematocrit Auto Volume Fraction (Bld)34.0 %Low41.0 - 52.0[facility] Toms RiverComment on above: Performed By: #### EMRAD ####NO LOCATION NEEDEDHGB,VTGBSRSJZM27.6 g/dLLow13.5 - 17.5[facility] Toms RiverComment on above:Performed By: #### EMRAD ####NO LOCATION NEEDEDLactate molar conc2.7 mmol/LHigh0.4 - 2.0[facility] Toms RiverComment on above:Performed By: #### EMRAD ####NO LOCATION NEEDEDOxygen ppres (BldA)41 mm[Hg][facility] ClinicComment on above:Performed By: #### EMRAD ####NO LOCATION UECAJZRVU120 mmHgNormalUHealthsouth - Specialty Hospital Of UnionComment on above:Performed By: #### EMRAD ####NO LOCATION NEEDEDpH (Bld) 7.28 [pH][facility] ClinicComment on above:Performed By: #### EMRAD ####NO LOCATION NEEDEDPotassium molar conc5.1 mmol/LNormal3.5 - 5.3[facility] Toms RiverComment on above:Performed By: #### EMRAD ####NO LOCATION NEEDEDRBC Auto #/vol (Bld)26.3 mmol/LNormalHealth[facility] Comment on above:Performed By: #### EMRAD ####NO LOCATION ESICDCBS658 %NormalHealth[facility] Toms RiverComment on above:Performed By: #### EMRAD ####NO LOCATION NEEDEDSodium molar wyvs324 mmol/PAwaekl750 - 145[facility] Toms RiverComment on above:Performed By: #### EMRAD ####NO LOCATION NEEDEDOPERATIVE REPORTon 36-66-7530PDIBHKUIZ REPORTUnMansfield Hospital[address] [place], [place] [address]Patient Name: DON ELKINSMRN: [id number]: 1Encounter Number: [id number] of Service: 03/31/2018Patient Location: [place] [id number] Type: ISurgeon: Ana Egan Type: Operative ReportsPREOPERATIVE [...] class III.10. Status post coronary artery bypass graftingx3.OPERATION/PROCEDURE: 1. Extracorporeal circulation.2. Right greater saphenous vein endoscopic harvest.3. Left internal mammary artery pedicle harvest.4. Coronary artery bypass grafting x3; left internal mammary artery to left anterior descending artery, saphenous vein graft to proximal posteriordescending artery, saphenous vein graft to diagonal artery.SURGEON: MAREN ChrisISTANT(S): ANESTHESIA: OPERATIVE PROCEDURE: The patient was taken to the operating room, placed in supine position. Satisfactory endotracheal anesthesia was administered. Intravenous lines were inserted. Procedural pause was performed. Prepping and draping was done. Median sternotomy was performed. Left pleura was opened. Left internal mammary artery was harvested in pedicled manner. Vein was harvested simultan eously from the leg. Heparin was administered. ACT was confirmed. Pericardium was opened. Pericardial stays were taken. Aorta was cannulated with a 22 size cannula. Right atrium was cannulated with 2-stage cannula. The patient was placed on complete cardiopulmonary bypass. Distal coronary targets were identified, and needle tack vent was placed in the ascending aorta. Aorta was then cross-clampedand 1 L of cold blood antegrade cardioplegia [...] was kept on high suction. The aortic cross- clamp was released. Heart picked up in slow sinus rhythm. Temporary epicardial and atrialwires were applied. The patient was atrially paced at 90 beats per minute. Ventilation was resumed.The patient was systemically on 37 degrees Celsius [...] MD ESTTT: 04/06/2018 11:16 PM ESTDICTATION NUMBER: [id number] JOB NUMBER: [id number]:Kenneth Cheng MD, PhDElectronically Signed by Dr. Jc Gaston 04/10/2018 09:10:09 [facility] CampusPreop Checkliston 34-33-8223Ikpwn ChecklistPreop Checklist:Preop Checklist: Procedure Typecabg NPO Rfmyqv27-Zkc-1202 ID Band Onyes Allergy Bandno known allergies Consent Signedpending H&P Completeyes Anesthesia Assessment CompletedpendingEKG Performedsee results tab Chest X-Ray Performedsee results tab Chlorhexadine Bath Givencompletedmorning of surgery Hair Washedno Soap and water bath with hair shampoo the night before surgeryno SCD's Appliednot applicable ELISABETH Hose Appliednot ordered Denturesnot applicable Prostheticsnot applicable Hearing Aidsnot applicable Valuables Securedsent with family Glasses / Contactssent with family Cardiovascular Assessment: Apicalregular Radial Pulsespalpable Pedal Pulsespalpable Extremitieswarm R espiratory Assessment: Respirationsregular Air Exchangegood Breath Soundsclear Neurological Assessment: Level of Consciousnessalert Mobilitymoves all extremities Able to Express Selfyes Age Appropriateyes Emotional Statuscalm Electronic Signatures:Christine Martines ([facility] Dylan) (Signed 31-Mar-2018 06:10) Authored: Preop Checklist Last Updated: 31-Mar-2018 06:10 by Christine Martines ([facility] Dylan)NormalHealth[facility] Toms RiverRENAL FUNCTION PANELon 03-31-2018 Albumin mass conc3.9 g/dLNormal3.4 - 5.0[facility] Toms RiverComment on above:Performed By: #### EMRAD ####NO LOCATION NEEDEDAnion gap 3 molar conc16 mmol/SEqizlc30 - 20[facility] RiverComment on above:Performed By: #### EMRAD ####NO LOCATION NEEDEDCalcium mass conc8.8 mg/dLNormal8.6 - 10.6[facility] Toms RiverComment on above:Performed By: #### EMRAD ####NO LOCATION NEEDEDChloride molar qfsf818 mmol/PZhngnl74 - 107[facility] Toms RiverComment on above:Performed By: #### EMRAD ####NO LOCATION NEEDEDCreatinine mass conc1.35 mg/dLHigh0.50 - 1.30[facility] Toms RiverComment on above: Performed By: #### EMRAD ####NO LOCATION NEEDEDGFR- AM.64 mL/min/1.73m2 Normal>60[facility] Toms RiverComment on above:Result Comment: CALCULATIONS OF ESTIMATED GFR ARE PERFORMED USING THE MDRD STUDY EQUATION FOR THE IDMS-TRACEABLE CREATININE METHODS. CLIN CHEM 2007;53:766-72Performed By: #### EMRAD ####NO LOCATION NEEDEDGFR-NON AM.53 mL/min/1.86p4Qsjqlpbw>60 [facility] RiverComment on above:Performed By: #### EMRAD ####NO LOCATION NEEDEDGlucose mass pvdq617 mg/iRBcsn91 - 99[facility] Comment on above:Performed By: #### EMRAD ####NO LOCATION NEEDEDHCO3 molar conc (Bld)24 mmol/WIndqhp66 - 32[facility] T[facility] RiverComment on above:Performed By: #### EMRAD ####NO LOCATION NEEDEDPhosphate mass conc3.9 mg/dLNormal2.5 - 4.9[facility] T[facility] RiverComment on above:Result Comment: The performance characteristics of phosphorus testing in heparinized plasma have been validated by the individual laboratory site where testing is performed. Testing on heparinizedplasma is not approved by the FDA; however, such approval is not necessary.Performed By: #### EMRAD ####NO LOCATION NEEDEDPotassium molar conc5.0 mmol/LNormal3.5 - 5.3[facility] RiverComment on above:Performed By: #### EMRAD ####NO LOCATION NEEDEDSodium molar gcne574 mmol/WFdtcex439 - 145[facility] RiverComment on above:Performed By: #### EMRAD ####NO LOCATION NEEDEDUrea nitrogen mass conc22 mg/dLNormal6 - 23[facility] T[facility] RiverComment on above:Performed By: #### EMRAD ####NO LOCATION NEEDEDAlbumin mass conc4.1 g/dLNormal3.4 - 5.0[facility] T[facility] RiverComment on above: Performed By: #### EMRAD ####NO LOCATION NEEDEDAnion gap 3 molar conc19 mmol/L Qgfzeb90 - 20[facility] RiverComment on above:Performed By: #### EMRAD ####NO LOCATION NEEDEDCalcium mass conc9.4 mg/dLNormal8.6 - 10.6[facility] RiverComment on above:Performed By: #### EMRAD ####NO LOCATION NEEDEDChloride molar sxkk008 mmol/MKglici42 - 107[facility] RiverComment on above:Performed By: #### EMRAD ####NO LOCATION NEEDEDCreatinine mass conc1.50 mg/dLHigh0.50 - 1.30[facility] T[facility] RiverComment on above: Performed By: #### EMRAD ####NO LOCATION NEEDEDGFR- AM.57 mL/min/1.73m2 Abnormal>60[facility] T[facility] RiverComment on above:Result Comment: CALCULATIONS OF ESTIMATED GFR ARE PERFORMED USING THE MDRD STUDY EQUATION FOR THE IDMS-TRACEABLE CREATININE METHODS. CLIN CHEM 2007;53:766-72Performed By: #### EMRAD ####NO LOCATION NEEDEDGFR-NON AM.47 mL/min/1.96t7Dztavrtk>60 [facility] RiverComment on above:Performed By: #### EMRAD ####NO LOCATION NEEDEDGlucose mass lmge755 mg/lJFnet77 - 99[facility] Comment on above:Performed By: #### EMRAD ####NO LOCATION NEEDEDHCO3 molar conc (Bld)21 mmol/TIfkwka76 - 32[facility] T[facility] RiverComment on above:Performed By: #### EMRAD ####NO LOCATION NEEDEDPhosphate mass conc3.2 mg/dLNormal2.5 - 4.9[facility] T[facility] RiverComment on above:Result Comment: The performance characteristics of phosphorus testing in heparinized plasma have been validated by the individual laboratory site where testing is performed. Testing on heparinizedplasma is not approved by the FDA; however, such approval is not necessary.Performed By: #### EMRAD ####NO LOCATION NEEDEDPotassium molar conc5.2 mmol/LNormal3.5 - 5.3[facility] RiverComment on above:Performed By: #### EMRAD ####NO LOCATION NEEDEDSodium molar xvpu118 mmol/EHfjzwu184 - 145[facility] RiverComment on above:Performed By: #### EMRAD ####NO LOCATION NEEDEDUrea nitrogen mass conc23 mg/dLNormal6 - 23[facility] RiverComment on above:Performed By: #### EMRAD ####NO LOCATION NEEDEDAlbumin mass concCanceledNormalUSelect Medical Specialty Hospital - Cant[facility] CenterComeaton rapids [facility] on above:Order Comment: TEST RENAL FUNCTION PANEL WAS CANCELLED, 03/31/2018 14:47 ?Cancel Reason:Discontinued.Performed By: #### EMRAD ####NO LOCATION NEEDEDAnion gap 3 molar [facility]Come[facility] on above:Order Comment: TEST RENAL FUNCTION PANEL WAS CANCELLED, 03/31/2018 14:47 ?Cancel Reason:Discontinued.Performed By: #### EMRAD ####NO LOCATION NEEDEDCalcium mass [facility]Come[facility] on above:Order Comment: TEST RENAL FUNCTION PANEL WAS CANCELLED, 03/31/2018 14:47 ?Cancel Reason:Discontinued.Performed By: #### EMRAD ####NO LOCATION NEEDEDChloride molar [facility]Come[facility] on above:Order Comment: TEST RENAL FUNCTION PANEL WAS CANCELLED, 03/31/2018 14:47 ?Cancel Reason:Discontinued.Performed By: #### EMRAD ####NO LOCATION NEEDEDCreatinine mass [facility]Come[facility] on above:Order Comment: TEST RENAL FUNCTION PANEL WAS CANCELLED, 03/31/2018 14:47 ?Cancel Reason:Discontinued.Performed By: #### EMRAD ####NO LOCATION NEEDEDGFR- AM.[facility] HospitalCome[facility] on above:Order Comment: TEST RENAL FUNCTION PANEL WAS CANCELLED, 03/31/2018 14:47 ?Cancel Reason:Discontinued.Result Comment: CALCULATIONS OF ESTIMATED GFR ARE PERFORMED USING THE MDRD STUDY EQUATION FOR THE IDMS-TRACEABLE CREATININE METHODS. CLIN CHEM 2007;53:766-72Performed By: #### EMRAD ####NO LOCATION NEEDEDGFR-NON AM.[facility]Come[facility] on above:Order Comment: TEST RENAL FUNCTION PANEL WAS CANCELLED, 03/31/2018 14:47 ?Cancel Reason:Discontinued.Performed By: #### EMRAD ####NO LOCATION NEEDEDGlucose mass [facility]Come[facility] on above:Order Comment: TEST RENAL FUNCTION PANEL WAS CANCELLED, 03/31/2018 14:47 ?Cancel Reason:Discontinued.Performed By: #### EMRAD ####NO LOCATION NEEDEDHCO3 molar conc (Bld)CancelOwatonna ClinicComment on above:Order Comment: TEST RENAL FUNCTION PANEL WAS CANCELLED, 03/31/2018 14:47 ?Cancel Reason:Discontinued.Performed By: #### EMRAD ####NO LOCATION NEEDEDPhosphate mass concCancelOwatonna ClinicComment on above:Order Comment: TEST RENAL FUNCTION PANEL WAS CANCELLED, 03/31/2018 14:47 ?Cancel Reason:Discontinued.Result Comment: The performance characteristics of phosphorus testing in heparinized plasma have been validated by the individual laboratory site where testing is performed. Testing on heparinizedplasma is not approved by the FDA; however, such approval is not necessary.Performed By: #### EMRAD ####NO LOCATION NEEDEDPotassium molar concCancelOwatonna ClinicComment on above:Order Comment: TEST RENAL FUNCTION PANEL WAS CANCELLED, 03/31/2018 14:47 ?Cancel Reason:Discontinued.Performed By: #### EMRAD ####NO LOCATION NEEDEDSodium molar concCancelOwatonna ClinicComment on above:Order Comment: TEST RENAL FUNCTION PANEL WAS CANCELLED, 03/31/2018 14:47 ?Cancel Reason:Discontinued.Performed By: #### EMRAD ####NO LOCATION NEEDEDUrea nitrogen mass concCancelOwatonna Clinic Comment on above:Order Comment: TEST RENAL FUNCTION PANEL WAS CANCELLED, 03/31/2018 14:47 ?Cancel Reason:Discontinued.Performed By: #### EMRAD ####NO LOCATION NEEDEDTH CHEST 1 VIEWon [id number] CHEST 1 VIEWMRN: [id number] Name: DON ELKINS STUDY:CHEST 1 VIEW; 03/31/2018 3:30 pm INDICATION:Signs/Sympt oms: CT surgery. COMPARISON:03/19/2018 ORDERING CLINICIAN:GERMAN JACK FINDINGS:ET tube is terminating at the level of clavicle heads.Right IJSwan-Jose catheter is terminatingin the right main pulmonary artery.Mediastinal drain and left-sided chest tube are in place. Patient is status post median sternotomy. The cardiac silhouette sizeis enlarged. Right basilar pleural effusion and atelectasis. Low lungvolumes and bronchovascular crowding with no edema. No sizablepneumothorax. No acute osseous abnormality. IMPRESSION:1. Medical appliances and postsurgical changes as described above.2. Right basilar pleural effusion and atelectasis. Electronically signed by: Mony BERNARDO Jfk Johnson Rehabilitation InstituteANTICARDIOLIPIN ABon [id number] IGM0.2 MPL U/mLNormal0.0 - 20.0[facility] Toms RiverComment on above:Result Comment: Elevated levels of IgM anti-cardiolipin on 2 occasions at least 12 weeks apart are laboratory criteria for anti-phospholipid syndrome according to an international consensus (J ThrombHaemost 2006 4:295). IgM anti- cardiolipin tends to give false positive results in the low positive range, especially in the presence of rheumatoid factor or cryoglobulins.Performed By: #### ACA2 ####[id number], [place] [address]YTK IGA0.5 APL U/mLNormal 0.0 - 20.0[facility] Toms RiverComment on above:Result Comment: Elevated levels of IgA anti-cardiolipin have not been included in the laboratory criteria for anti-phospholipid syndrome according to an international consensus (J Thromb Haemost 84516:295). It may be helpful in identifying subgroups of patients at risk for specific clinical manifestations of anti-phospholipid syndrome.Performed By: #### ACA2 ####[id number] [place] [address] CAROLYN IGG<1.0Qqizsp7.0 - 20.0[facility] Toms RiverComment on above:Result Comment: Elevated levels of IgG anti-cardiolipin on 2 occasions at least 12 weeks apart are laboratory criteria for anti-phospholipid syndrome according to an international consensus (J ThrombHaemost 2006 4:295).Performed By: #### ACA2 ####[id number], [place] [address]ZKKE 2 GLYCOPROTEIN ABon 03-30-2018 B2 GLYCOPROTEIN AB IGM0.3 U/mLNormal0.0 - 20.0[facility] RiverComment on above:Result Comment: Elevated levels of IgM anti-Beta 2 Glycoprotein-I on 2 occasions at least 12 weeks apart are laboratory criteria for anti-phospholipid syndrome according to an international consensus(J Thromb Haemost 2006 4:295). IgM anti-Beta 2 Glycoprotein-I tends to give false positive results in the low positive range, especially in the presence of rheumatoid factor or cryoglobulins.Performed By: #### B2GLY ####[id number], [place] [address]R9 GLYCOPROTEIN AB IGA<0.5Phsabm0.0 - 20.0[facility] Comment on above:Result Comment: Elevated levels of IgA anti-Beta 2 Glycoprotein-I have not been included in the laboratory criteria for anti- phospholipid syndrome according to an international consensus (J Thromb Haemost 2006 4:295). It may be helpful in identifying subgroups of patients at risk for specific clinical manifestations of anti-phospholipid syndrome. A significant proportion of IgA anti-Beta 2 Glycoprotein- positive tests has no apparent association with any clinical manifestation of anti-phospholipid syndrome. Performed By: #### B2GLY ####[id number], [place] [address]A0 GLYCOPROTEIN AB IGG<1.7Xgwnub2.0 - 20.0[facility] RiverComment on above:Result Comment: Elevated levels of IgG anti-Beta 2 Glycoprotein-I on 2 occasions at least 12 weeks apart are laboratory criteria for anti-phospholipid syndrome according to an international consensus(J Thromb Haemost 2006 4:295). Performed By: #### B2GLY ####[id number], [place] [address]JWWvu 84-27-1946Tillrbfwrem distribution width Auto Ratio (RBC)12.8 %Poqxkx65.5 - 14.5 [facility] RiverComment on above:Performed By: #### CBC ####[id number], [place] [address]Mvhneosrls Auto Volume Fraction (Bld)43.0 %Trorqy81.0 - 52.0[facility] RiverComment on above: Performed By: #### CBC ####[id number], [place] [address]Zzoshlhdlw mass conc (Bld)14.5 g/dRXekriq60.5 - 17.5[facility] RiverComment on above:Performed By: #### CBC ####[id number], [place] [address]ZSWT Auto mass conc (RBC)33.7 g/bYXpyzbw69.0 - 36.0[facility] RiverComment on above:Performed By: #### CBC ####[id number] [place] [address] MCV Auto Entitic volume (RBC)92 rFJcbecc03 - 100[facility] Comment on above:Performed By: #### CBC ####[id number], [place] [address]Byhzpxsxr RBC/100 WBC Ratio (Bld)0.0 /100 WBCNormal0.0-0.0[facility] RiverComment on above:Performed By: #### CBC ####[id number], [place] [address]Rrlrekynm Auto #/vol (Bld)238 10*3/ePXzcvwa362 - 450[facility] RiverComment on above:Performed By: #### CBC ####[id number], [place] [address]URA Auto #/vol (Bld)4.66 x10E12/LNormal4.50 - 5.90 [facility] RiverComment on above:Performed By: #### CBC ####[id number], [place] [address]OAC Auto #/vol (Bld)8.1 10*3/uL Normal4.4 - 11.3[facility] RiverComment on above:Performed By: #### CBC ####[id number], [place] [address]Xnyyraxbnes distribution width Auto Ratio (RBC)12.8 %Tlputu97.5 - 14.5[facility] RiverComment on above:Performed By: #### CBC ####[id number] [address] Hematocrit Auto Volume Fraction (Bld)41.1 %Gwkzyf53.0 - 52.0[facility] RiverComment on above:Performed By: #### CBC ####[id number], [place] [address]Pdupzyfzkd mass conc (Bld)13.7 g/xWSzuubk21.5 - 17.5[facility] RiverComment on above:Performed By: #### CBC ####[id number] [address]MCHC Auto mass conc (RBC)33.3 g/qWYdgmta42.0 - 36.0[facility] RiverComment on above:Performed By: #### CBC ####[id number] [address]MCV Auto Entitic volume (RBC)93 fL Ohrrgm98 - 100[facility] RiverComment on above:Performed By: #### CBC ####[id number], [place] [address]Ffsujtgky RBC/100 WBC Ratio (Bld) 0.0 /100 WBCNormal0.0-0.0[facility] RiverComment on above:Performed By: #### CBC ####[id number] [address]Platelets Auto #/vol (Bld)233 10*3/hJYqxrwk937 - 450[facility] RiverComment on above: Performed By: #### CBC ####[id number], [place] [address]FPQ Auto #/vol (Bld)4.43 x10E12/LLow4.50 - 5.90[facility] RiverComment on above:Performed By: #### CBC ####[id number], [place] [address]KJV Auto #/vol (Bld)9.2 10*3/uLNormal4.4 - 11.3[facility] RiverComment on above:Performed By: #### CBC ####[id number] [address] Clinical Intervention - Pharmacyon 01-25-0442Tbqmuyhe Intervention - Pharmacy Pharmacist's Clinical Intervention:Active and Pending Medications:Nitroglycerin 50 mg/ D5W 250 mL Infusion, Solution (TRIDIL)IntraVenous Initial Admin Rate = 3 mL/hr mcg/minNotes from Pharmacy: Initial DOSE Rate = 10 mcg/min = 3 mL/hr., 30-Mar-2018,Active Pharmacist intervention: Contacted physicianType of recommendation: Contacted STRIPPER LATEX to clarify lack of titration orders. Shestates since nursing cannot titrate on their own she omitted titrationparameters. She will enter new orders as titration is necessaryIs this intervention medication reconciliation related: NoExpected outcome and basis: Order clarified or correctedTime Required: 1 - 5 minutes Electronic Signatures:Soni Whitman ([facility]) (Signed 30-Mar-2018 12:11)Authored: Pharmacist's Clinical Intervention Last Updated: 30-Mar-2018 12:11 by Soni Whitman ([facility])Owatonna ClinicDaily Progress Note-Cardiologyon 71-04-3137Mfusrui mass concService: Cardiology Subjective Data:DON ELKINS is a 67 year old Male who is Hospital Day # 13. Additional Information:Patient having chest pressure overnight, started on nitro gtt with relief.Still having chest pressure this AM, increase drip to 10mcg/min. Low thresholdto unit. OR tomorrow, with Dr Gaston - 2nd Case. Per endocrine: glargine 20unitstonight, hydrocortisone 30mg PO at 0500, cortisol le michele at 0700, yfwpjpxleyaczt01oq IV at 0800 and through surgery. Endocrine needs to be informed of updatesfor Brigida's management. - OR tomorrow, 2nd case- glargine 20 units tonight- trend troponins On day of CABG surgery 03/31 Hydrocortisone 30mg PO 0500Check Cortisol level at 0700ALSOStart Hydrocortisone 25mg IV q6h starting at 0800Call Endocrine on the day of surgery to keep them closely involved Objective Data: Objective Information: T TEUOMqN2Gzuqx68.82772460/6596%Date/Time03/30 11: 13: 11: 13: 11:14Range(35.8C - 36.1C ) (74 - 91 ) (17 - 18 ) (120 - 159 )/ (63 - 92 ) (92%- 99% ) Frffcob50/12 3:51: Weight in kg (Weight (kg)) 107.811/12 3:51: Weight in lbs ((lbs)) 237.8 Physical Exam: Constitutional: Resting in bed, NADHead/Neck: No JVDRespiratory/Thorax: CTABCardiovascular: RRR, S1 C5Tymezfmqxodhbyeh: soft, NT/NDExtremities: No LE edemaNeurological: alert and oriented c1Rqlpddopojgru: Appropriate mood and behaviorSkin: psoriasis plaque o alma elbows and knees; otherwise warm and dry Medication: Medications: Continuous Medications 1. Nitroglycerin 50 mg/ D5W 250 mL Infusion: 10 mcg/min IntraVenous 2. Sodium Chloride 0.9% .: 250 mL IntraVenous Scheduled Medications 1. Aspirin Chewable: 81 mg Oral Daily2. Atorvastatin: 40 mg Oral Daily3. Carvedilol: 12.5 mg Oral 2 Times a Day4. Chlorhexidine Gluconate 0.12% Mucous Mem: 15 mL Topical Morning andEvening5. Citalopram: 20 mg Oral Daily6. Docusate 50 mg - Senna 8.6 m tablet(s) Oral 2 Times a Day7. Fludrocortisone: 0.05 mg Oral 8. Heparin (Repeat Bolus) Injectable: 4000 unit(s) IntraVenous Push Every 2Vjelv6. Hydrocortisone: 10 mg Oral 10. Hydrocortisone: 5 mg Oral 11. Hydrocortisone: 2.5 mg Oral 12. Insulin Glargine (Lantus) Injectable: 20 unit(s) SubCutaneous Every 47Ppoac88. Insulin Lispro (HumaLOG) Injectable: 12 unit(s) SubCutaneous 3 Times aDay Before Meals14. Insulin Lispro Mild Corrective Scale: unit(s) SubCutaneous 3 Times a DayBefore Meals15. Levothyroxine: 150 microgram(s) Oral Daily16. Mupirocin2%: 0.5 application(s) Each Nostril 2 Times a Day17. Pantoprazole: 40 mg Oral Daily18. rOPINIRole: 6 mg Oral 19. Sodium Chloride 0.65% Nasal Waterloo: 2 spray(s) Each Nostril 2 Times aDay PRN Medications 1. Dextrose 50% in Water Injectable: 25 gram(s) IntraVenous Push Every 09Zcazpxo5. Glucagon Injectable: 1 mg IntraMuscular Every 15 Minutes3. Nitroglycerin SubLingual: 0.4 mg SubLingual Every 5 Minutes4. Polyethylene Glycol: 17 gram(s) Oral Daily Recent Lab Results: Results: I have reviewed these laboratory results: Glucose_POCT Trending View Xswkzx13-Pcf-9274 12:06:00 30-Mar-2018 07:46:00Glucose-PYDS792 H 153 H Troponin I, Serum Trending View Flaxgq61-Nxb-716333:37:00 30-Mar-2018 03:58:00Troponin I, Serum0.94 H 0.54 HHLab Comment: TROP CALLED RB TO SWEETIE MOLINA, 03/30/2018 07:28 Radiology Results: Results: Conclusion:Electrocardiogram 12 Lead [Mar 30 201811:30AM] Assessment and Plan:Assessment:67 yo M with HTN, DLD, T2DM, Addisson's, GERD, prostate ca s /p prostatectomy nm0020, hypothyroidism, psoriasis, and most recently diagnosed with a PE andmultivessel CAD transferred to cardiology at [facility] from [facility] 03/18 for CABG eval. Multiple PEs- [...] Sy Anderson 03/31- plan for 3-6 months anticoagulation(1st episode unprovoked PE)- Hypercoagulable work up negative- PSA <10 Multivessel CAD- 03/19 TTEEF 60-65%, impaired relaxation- EKG without acute ST T wave changes- cont Atorva 40 mg- Cardiac Cath uploaded: 03/16 at [facility] LM: 10-20%, LAD prox: 30%, LAD mid:95%, Diag 3rd: 99%, RCA: 85 %, PLV: 50%, Circ: 95%- Plan for CABG with Dr. Gaston on 03/31, 2nd case- early AM of 03/30, started having chest pressure, resolved with nitro gtt fm52fuo/min- troponins: <0.02 -> 0.54 -> 0.94 s/p [...] AC- 03/30 decrease lantus to 30units tonight [place]'s disease- 03/22 Reduce fludrocortisone to 0.05 mg [...] periop period- 03/20 Increase Carvedilol to 12.5mg BID-SBP 120s-150s over past 24 hours DLD- Atorva 40mg- lipids 155/44/82/141 HypothyroidismTSH 2.51- Continue home levothyroxine TIFFANI- MICHELLE- Adm Creatinine 1.42- Today 1.32 [1.44, 1.48, 1.46, 1.40, 1.52, 1.24, 1.53, 1.66, 1.38, 1.36] DVT ppx: heparin gttCode status: Full Dispo:pending CABG Friday Seen and discussed with Dr. Rothman Signature/Cosignature/Attestation:Provider/Team Contact Info-Pager Numb [id number]/ Additional FindingsUnstable angina overnight that resolved with IV nitroglycerin, chest and rightarm pain went to 0/[address] gaston notified, but unable to do surgerysooner. CICUand HF ICU at capacity. If chest pain recurs, may need to beconsidered for IABP . Plan for now is for CABG 03/31/2018. Low threshold forICU transfer.Patent with Brigida's and appreciate detailed steroid management plan perEndocrinology Electronic Signatures:Latisha Rothman) (Signed 30-Mar-2018 18:09)Authored: Signature/Cosignature/AttestationCo-Signer: Service, Subjective Data, Objective Data, Assessment and Plan,Signature/Cosignature/AttestationKate Ayala (HEALTH AND SAFETY TECH- IRON WORKER APPRENTICE) (Signed 30-Mar-2018 15:06)Authored: Service, Subjective Data, Objective Data, Assessment and Plan,Signature/Cosignature/Attestation Last Updated: 30-Mar-2018 18:09 by Latisha Rothman)[facility] Daily Progress Note-Endocrinologyon 76-97-7221Kvculag mass concConsult Type: subsequent visit/care Service: Endocrinology Subjective Data:DON ELKINS is a 67 yearold Male who is Hospital Day # 13. Objective Data: Objective Information:T UHBRPpL1Lftay45.74039286/6596%Date/Time03/30 11: 13: 11: 13: 11:14Range(35.8C - 36.1C ) (74 - 91) (17 - 18 ) (120 - 159 )/ (63 - 92 ) (92%- 99% ) Pain with Activity reported at 03/30 7:51: 3Pain at Rest reported at 03/30 7:51: 3 Physical Exam: Constitutional: Well developed, awake/alert/oriented x3, no distress, alert andcooperativeGastrointestinal: Nondistended, soft, non-tender, no rebound tenderness orguarding, no masses palpable, no organomegaly, +BS, no bruitsSkin: Warm and dry, no lesions, no rashes Medication: Medications: Continuous Medications 1. Nitroglycerin 50 mg/ D5W 250 mL Infusion: 10 mcg/min IntraVenous 2. Sodium Chloride 0.9% .: 250 mL IntraVenous Scheduled Medications 1. Aspirin Chewable: 81 mg Oral Yvette ly2. Atorvastatin: 40 mg Oral Daily3. Carvedilol: 12.5 mg Oral 2 Times a Day4. Chlorhexidine Gluconate 0.12% Mucous Mem: 15 mL Topical Morning andEvening5. Citalopram: 20 mg Oral Daily6. Docusate 50 mg - Senna 8.6 m tablet(s) Oral 2 Times a Day7. Fludrocortisone: 0.05 mg Oral 8. Heparin (RepeatBolus) Injectable: 4000 unit(s) IntraVenous Push Every 1Wgygd6. Hydrocortisone: 10 mg Oral 10. Hydrocortisone: 5 mg Oral 11. Hydrocortisone: 2.5 mg Oral 12. Insulin Glargine (Lantus) Injectable: 20 unit(s) SubCutaneous Every 58Knksg84. Insulin Lispro (HumaLOG) Injectable: 12 unit(s) SubCutaneous 3 Times aDay Before Meals14. Insulin Lispro Mild Corrective Scale: unit(s) SubCutaneous 3 Times a DayBefore Meals15. Levothyroxine: 150 microgram(s) Oral Daily16. Mupirocin 2%: 0.5 application(s) Each Nostril 2 Times a Day17. Pantoprazole: 40 mg Oral Daily18. rOPINIRole: 6 mg Oral 19. Sodium Chloride 0.65% Nasal [place]: 2 spray(s) Each Nostril 2 Times aDay PRN Medications 1. Dextrose 50% in Water Injectable: 25 gram(s) IntraVenous Push Every 04Unehvee2. Glucagon Injectable: 1 mg IntraMuscular Every 15 Minutes3. Nitroglycerin SubLingual: 0.4 mg SubLingual Every 5 Minutes4. Polyethylene Glycol: 17 gram(s) Oral Daily Recent Lab Results: Results: I have reviewed these laboratory results: Glucose_POCT Trending View Skvajb38-Ycj-5489 12:06:00 30-Mar-2018 07:46:00 29-Mar-2018 20:49:00 29-Mar-2018 17:04:00 29-Mar-2018 13:15:00 29-Mar-2018 07:09:00 42-Xho-028694:50:00 28-Mar-2018 16:38:00Glucose-OHAZ264 H 153 H 244 H 258 H 217 H 186 H 271H 363 H Renal Function Panel Trending View Ljdmut85-Eqn-8410 19:58:00 28-Mar-2018 21:29:00Glucose, Agpmh263 H 220 CIQ276 L 139K4.6 4.5CL99 103Bicarbonate, Serum19 L 27Anion Gap, Serum19 53JNB87 H 53CYGMP1.32 H 1.44 HGFR-Non Bknoqidr89 A 49 AGFR- Ynxyzeik23 59 ACalcium, Serum9.3 9.5Phosphorus, Serum4.2 4.0ALB3.94.0 Assessment and Plan:Assessment: Mr. Elkins is a 67 yo WM with no known history of CAD, who has a past medicalhistory of HTN, HLD, T2DM, Cincinnati's disease, hypothyroidism, COPD, AKASH onCPAP, prostateca s/p prostatectomy in 2011, and psoriasis who was [facility]to [facility] service at [facility] on 03/18 David marshall.Endocrine consulted fr evaluation of [place] disease and treatment periop Patient was on supra-therapeutic dose of HCT 20-0-20 , fludrocortisone 0.1 ,mgdailyPatient has uncontrolled HTN and uncontrolled BSMost likely tomorrow (03/23) IVC filter placement Recommendations:1. Brigida's Disease-- Fludrocortisone 0.05 mg 4 times weekly ( and friday)--Tomorrow please give Hydrocortisone 30 mg by mouth once at 5 am , check thecortisol level at 7 am ,then continue Hydrocortisone as 25 mg IV h9juyazymvexogd as of 8 am. 2. T2DM-- Decrease lantus to 20 units tonight-- Lispro to 12 units TIDAC to be held off after dinner time dose tonight-- Continue ISS 2 units for every 50 above 150-- POCT AC and qHs-- Hypoglycemia protocol--Diabetic diet--will follow Please page with questions [phone] Patient seen and examined, plan discussed with Dr Quevedo Signature/Cosignature/Attestation:Attending AttestationI saw and evaluated the patient. I [...] patient (as noted in the above attestation) dx81-Zdx-6940 Electronic Signatures:Starr Quevedo) (Signed 31-Mar-2018 10:06)Authored: Signature/Cosignature/AttestationCo-Signer: Service, Subjective Data, Objective Data, Assessment and Plan,Signature/Cosignature/AttestationHasmukh Stephenson (Resident)) (Signed 30-Mar-2018 15:28)Authored: Service, Subjective Data, Objective Data, Assessment and Plan,Signature/Cosignature/Attestation Last Updated: 31-Mar-2018 10:06 by Starr Quevedo)[facility]watonna ClinicGLUCOSE-POCTon 81-65-4449Emixyjp mass pkzx162 mg/bAVqzi[address] Comment on above:Performed By: #### GLUPO ####[id number], [place] [address]Snnausn mass vbsm731 mg/vDEfgq5122 Wilson StreetComment on above:Performed By: #### GLUPO ####[id number] [place] [address] Glucose mass rptu896 mg/fCSwjr5922 Wilson StreetComment on above:Performed By: #### GLUPO ####[id number] [place] [address] Glucose mass zjex372 mg/iURwvh21 [address]enton StreetComment on above:Performed By: #### GLUPO ####[id number] [place] [address] HEPARIN ASSAY,UFHon 12-55-1649WUQFQUO ASSAY,UFH0.4 IU/mLNCook HospitalComment on above:Result Comment: The therapeutic reference range for UFH may be either 0.3-0.6 IU/mL or 0.3-0.7 IU/mL based on the clinical setting for anticoagulant therapy and the associated nomogram used. For heparin dosing guidelines based on clinical scenario and Heparin Assay results, please refer to local Pharmacy and the [facility] Guidelines for Anticoagulation therapy available on the [facility] intranet at:https://[facility] [email or web address]/Pharmacy/Pages/[facility]_Guide lines_for_Anticoagu.aspxPerformed By: #### HAUF ####[id number], [place] [address]QKFVD ANTICOAG. WITH INTERPRETATION[JACK]on 55-79-3310BL INTERPRETATIONSEE Kittson Memorial HospitalComment on above:Result Comment: No evidence of lupus anticoagulant in these assays (DRVVT [...] assess significance of results in an individual patient.Performed By: #### JACK ####[id number], [place] [address]CQU CONFIRMATION1.10 RATIONCook HospitalComment on above:Performed By: #### JACK ####[id number], [place] [address]THD SCREEN0.87 RATIONormalHealth[facility] Comment on above:Performed By: #### JACK ####[id number], [place] [address]HBI TEST RATIO0.79 RATIONormal<=1.16[facility] Toms RiverComment on above:Performed By: #### JACK ####[id number], [place] [address]QOFKG CONFIRMATION0.98 RATIONormalHealth[facility] - [facility] Toms RiverComment on above: Performed By: #### JACK ####[id number], [place] [address]IYAKB SCREEN 1.02 RATIONormalHealth[facility] - [facility] of Toms RiverComment on above:Performed By: #### JACK ####[id number], [place] [address]BBBMY TEST RATIO1.03 RATIO Normal<=1.20[facility] Toms RiverComment on above:Performed By: #### JACK ####[id number], [place] [address]ICYZU FUNCTION PANELon 03-30-2018 Albumin mass conc4.1 g/dLNormal3.4 - 5.0[facility] Toms RiverComment on above:Performed By: #### RENAL ####[id number] [place] [address] Anion gap 3 molar conc16 mmol/ILjlknj01 - 20[facility] Toms RiverComment on above:Performed By: #### RENAL ####[id number] [place] [address] Calcium mass conc9.5 mg/dLNormal8.6 - 10.6[facility] Toms RiverComment on above:Performed By: #### RENAL ####[id number] [place] [address] Chloride molar laok202 mmol/HFseara44 - 107[facility] Toms RiverComment on above:Performed By: #### RENAL ####[id number] [place] [address] Creatinine mass conc1.68 mg/dLHigh0.50 - 1.30[facility] Toms RiverComment on above:Performed By: #### RENAL ####[id number] [place] [address] GFR- AM.50 mL/min/1.65w1Txomgipp>60[facility] Toms RiverComment on above:Result Comment: CALCULATIONS OF ESTIMATED GFR ARE PERFORMED USING THE MDRD STUDY EQUATION FOR THE IDMS-TRACEABLE CREATININE METHODS. CLIN CHEM 2007;53:766-72Performed By: #### RENAL ####[id number], [place] [address]QCF-JGE AM.41 mL/min/1.35n8Uslnlupn>60[facility] Comment on above:Performed By: #### RENAL ####[id number], [place] [address]Dlbcvaq mass ztwa461 mg/hQDxfy26 - 99UH Jfk Johnson Rehabilitation InstituteComment on above:Performed By: #### RENAL ####[id number] [place] [address] HCO3 molar conc (Bld)23 mmol/AAnxnho77 - 32[facility] Toms RiverComment on above:Performed By: #### RENAL ####[id number] [place] [address] Phosphate mass conc4.5 mg/dLNormal2.5 - 4.9[facility] Toms RiverComment on above:Result Comment: The performance characteristics of phosphorus testing in heparinized plasma have been validated by the individual laboratory site where testing is performed. Testing on heparinizedplasma is not approved by the FDA; however, such approval is not necessary.Performed By: #### RENAL ####[id number], [place] [address]Comjkxrtm molar conc4.4 mmol/L Normal3.5 - 5.3[facility] Toms RiverComment on above:Performed By: #### RENAL ####[id number], [place] [address]Eqlmnv molar zank874 mmol/L Zujehe103 - 145[facility] Toms RiverComment on above:Performed By: #### RENAL ####[id number], [place] [address]Vtma nitrogen mass conc24 mg/dLHigh6 - 23[facility] InstituteComment on above:Performed By: #### RENAL ####[id number], [place] [address]TPNKDRVX Ion 03-30-2018 Troponin I.cardiac mass conc0.64 ng/mLHigh0.00 - 0.03[facility] Comment on above:Result Comment: LESS THAN 0.04 NG/ML: NEGATIVEREPEAT TESTING IN FOUR TO SIX HOURSIF CLINICALLY INDICATED.0.04 - 0.5 NG/ML: CONSISTENT WITH POSSIBLECARDIAC DAMAGE AND POSSIBLE INCREASEDCLINICAL RISK.SERIAL MEASUREMENTS MAY HELP ASSESS EXTENT OFMYOCARDIAL DAMAGE.>0.5 NG/ML: CONSISTENT WITH CARDIAC DAMAGE,INCREASED CLINICAL RISK AND MYOCARDIALINFARCTION. SERIAL MEASUREMENTS MAY HELPASSESS EXTENT OF MYOCARDIAL DAMAGE..Note: Troponin I testing is performed using differenttesting methodology at [facility] than [facility]. Direct result comparisons should onlybe made within the same method.. Patients receiving more than 5 mg/day of biotin may have interference in test results. A sample should be taken no sooner than eight hours after previous dose. Contact [phone] for additional information.This is a critical result.Per Laboratory policy, critical results for this testonly qualify to the call list once per 24 hours.Performed By: #### TROP2 ####[id number], [place] [address]Affodsvi I.cardiac mass conc0.94 ng/mLHigh0.00 - 0.03[facility] RiverComment on above:Result Comment: LESS THAN 0.04 NG/ML: NEGATIVEREPEAT TESTING IN FOUR TO SIX HOURSIF CLINICALLY INDICATED.0.04 - 0.5 NG/ML: CONSISTENT WITH POSSIBLECARDIAC DAMAGE AND POSSIBLE INCREASEDCLINICAL RISK.SERIAL MEASUREMENTS MAY HELP ASSESS EXTENT OFMYOCARDIAL DAMAGE.>0.5 NG/ML: CONSISTENT WITH CARDIACDAMAGE,INCREASED CLINICAL RISK AND MYOCARDIALINFARCTION. SERIAL MEASUREMENTS MAY HELPASSESS EXTENT OF MYOCARDIAL DAMAGE..Note: Troponin I testing is performed using differenttesting methodology at [facility] than [facility]. Direct result comparisons should onlybe made within the same method.. Patients receiving more than 5 mg/day of biotin may have interference in test results. A sample should be taken no sooner than eight hours after previous dose. Contact [phone] for additional information.This is a critical result.Per Laboratory policy, critical results for this testonly qualify to the call list once per 24 hours. Performed By: #### TROP2 ####[id number], [place] [address]Tziixhmp I.cardiac mass conc0.54 ng/mLCritically high0.00 - 0.03[facility] RiverComment on above:Order Comment: TROP CALLED RB TO SWEETIE MOLINA, 03/30/2018 07:28Result Comment: LESS THAN 0.04 NG/ML: NEGATIVEREPEAT TESTING IN FOUR TO SIX HOURSIF CLINICALLY INDICATED.0.04 - 0.5 NG/ML: CONSISTENT WITH POSSIBLECARDIAC DAMAGE AND POSSIBLE INCREASEDCLINICAL RISK.SERIAL MEASUREMENTS MAY HELP ASSESS EXTENT OFMYOCARDIAL DAMAGE.>0.5 NG/ML: CONSISTENT WITH CARDIAC DAMAGE,INCREASED CLINICAL RISK AND MYOCARDIALINFARCTION. SERIAL MEASUREMENTS MAY HELPASSESS EXTENT OF MYOCARDIAL DAMAGE..Note: Troponin I testing is performed using differenttesting methodology at [facility] than [facility]. Direct result comparisons should onlybe made within the same method.. Patients receiving more than 5 mg/day of biotin may have interference in test results. A sample should be taken no sooner than eight hours after previous dose. Contact [phone] for additional information.TROP CALLED RB TO SWEETIE MOLINA, 03/30/2018 07:28Performed By: #### TROP2 ####[id number], [place] [address]Hnszamgi I.cardiac mass concng/mL Normal0.00 - 0.03[facility] RiverComment on above:Result Comment: LESS THAN 0.04 NG/ML: NEGATIVEREPEAT TESTING IN FOUR TO SIX HOURSIF CLINICALLY INDICATED.0.04 - 0.5 NG/ML: CONSISTENT WITH POSSIBLECARDIAC DAMAGE AND POSSIBLE INCREASEDCLINICAL RISK.SERIAL MEASUREMENTS MAY HELP ASSESS EXTENT OFMYOCARDIAL DAMAGE.>0.5 NG/ML: CONSISTENT WITH CARDIACDAMAGE,INCREASED CLINICAL RISK AND MYOCARDIALINFARCTION. SERIAL MEASUREMENTS MAY HELPASSESS EXTENT OF MYOCARDIAL DAMAGE..Note: Troponin I testing is performed using differenttesting methodology at [facility] than at [facility]. Direct result comparisons should onlybe made within the same method.. Patients receiving more than 5 mg/day of biotin may have interference in test results. A sample should be taken no sooner than eight hours after previous dose. Contact [phone] for additional information.Performed By: #### TROP2 ####[id number] [id number] + SCREENon 76-24-3655HCQ Northfield City HospitalComment on above:Performed By: #### T+S ####[id number], [place] [address]RH TYPEPositiveOwatonna ClinicComment on above:Performed By: #### T+S ####[id number] [address]CBC on 42-46-7770Ynigwuudthn distribution width Auto Ratio (RBC)12.7 %Wbqjbp14.5 - 14.5[facility] RiverComment on above:Performed By: #### CBC ####[id number], [place] [address]Hematocrit Auto Volume Fraction (Bld)40.1 %Low41.0 - 52.0[facility] RiverComment on above:Performed By: #### CBC ####[id number] [address]Hemoglobin mass conc (Bld)13.6 g/oJJyihwk22.5 - 17.5[facility] RiverComment on above: Performed By: #### CBC ####[id number] [address]MCHC Auto mass conc (RBC)33.9 g/uOVnbojf36.0 - 36.0[facility] RiverComment on above:Performed By: #### CBC ####[id number] [address]MCV Auto Entitic volume (RBC)92 fFQdqsxl17 - 100[facility] RiverComment on above:Performed By: #### CBC ####[id number] [place] [address] Nucleated RBC/100 WBC Ratio (Bld)0.0 /100 WBCNormal0.0-0.0[facility] InstituteComment on above:Performed By: #### CBC ####[id number], [place] [address]Bdvsxtzii Auto #/vol (Bld)232 10*3/iRGrhkzf547 - 450[facility] InstituteComment on above:Performed By: #### CBC ####[id number], [place] [address]KSG Auto #/vol (Bld)4.37 x10E12/LLow4.50 - 5.90[facility] InstituteComment on above:Performed By: #### CBC ####[id number], [place] [address]GCS Auto #/vol (Bld)9.1 10*3/uLNormal4.4 - 11.3[facility] RiverComment on above:Performed By: #### CBC ####[id number], [place] [address]Lqfjm Progress Note-Cardiologyon 06-45-6552Qoxeifn mass concService: Cardiology Subjective Data:DON ELKINS is a 67 year old Male who is Hospital Day # 12. Additional Information: Resting in bed, has been ambulating in halls, hypercoagulable work up pending -plan for OR Saturday 03/31- c/w Heparin gtt Objective Data: Objective Information:T IIRMAoM2Ydviz79.2 2597460/9095%Date/Time03/29 12: 12: 12: 12: 12:00Range(36C - 36.4C ) (67 - 92 ) (18 - 20 ) (131 - 161 )/ (70 - 93 ) (92% - 96% ) Pain with Activity reported at 03/29 8:00: 0Pain at Rest reported at 03/29 8:00: 0 Rdoazik14/11 4:20: Weight in kg (Weight (kg)) 107.711/11 4:20: Weight in lbs ((lbs)) 237.4 Physical Exam: Constitutional: Resting in bed, NADHead/Neck: No JVDRespiratory/Thorax: CTABCardiovascular: RRR, S1 G7Otzdsjxelwhcbtqt: soft, NT/NDExtremities: No LE edemaNeurological: alert and oriented s6Oseafhfnhhrnx: Appropriate mood and behaviorSkin: psoriasis plaque over elbows and knees; otherwise warm and dry Medication: Medications: Continuous Medications 1. Sodium Chloride 0.9% .: 250 mL IntraVenous Scheduled Medications 1. Aspirin Chewable: 81 mg Oral Daily2. Atorvastatin: 40 mg Oral Daily3. Carvedilol: 12.5 mg Oral 2 Times a Day4. Citalopram: 20 mg Oral Daily5. Docusate 50 mg - Senna 8.6 m tablet(s) Oral 2 Times a Day6. Fludrocortisone: 0.05 mg Oral 7. Heparin (Repeat Bolus) Injectable: 4000 unit(s) IntraVenous Push Every 2Qrvez0. Hydrocortisone: 10 mg Oral 9. Hydrocortisone: 5mg Oral 10. Hydrocortisone: 2.5 mg Oral 11. Insulin Glargine (Lantus) Injectable: 30 unit(s) SubCutaneous Every 34Nwyzp84. Insulin Lispro (HumaLOG) Injectable: 12 unit(s) SubCutaneous 3 Times aDay Before Meals13. Insulin Lispro Mild Corrective Scale: unit(s) SubCutaneous 3 Times a DayBefore Meals14. Levothyroxine: 150 microgram(s) Oral Daily15. Mupirocin 2%: 0.5 application(s) Each Nostril 2 Times a Day16. Pantoprazole: 40 mg Oral Daily17. rOPINIRole: 6 mg Oral 18. Sodium Chloride 0.65% Nasal [place]: 2 spray(s) Each Nostril 2 Times aDay PRN Medications 1. Dextrose 50% in Water Injectable: 25 gram(s) IntraVenous Push Every 59Ltpfial4. Glucagon Injectable: 1 mg IntraMuscular Every 15 Minutes3. Polyethylene Glycol: 17 gram(s) Oral Daily Currently Suspended Medications 1. Chlorhexidine Gluconate 4% Topical: 1 application(s) Topical Once Recent Lab Results: Results: I have reviewed these laboratory results: Glucose_POCT Trendi ng View Dtsotm71-Mxu-1721 13:15:00 29-Mar-2018 07:09:00 28-Mar-2018 19:50:00 28-Mar-2018 16:38:00Glucose-NPXB343 H 186 H 271 H 363 H Heparin assay, UFH 28-Mar-2018 21:31:00 ResultValueHeparin assay, UFH 0.4 Complete Blood Count 28-Mar-2018 21:29:00 ResultValueWhite Blood Cell Count 9.1Nucleated Erythrocyte Count 0.0Red Blood Cell Count 4.37 LHGB 13.6HCT 40.1 LMCV 92MCHC 33.9PLT 232RDW- CV 12.7 Renal Function Panel 28-Mar-2018 21:29:00 ResultValueGlucose, Serum 220 HNA 139K 4.5CL 103Bicarbonate, Serum 27Anion Gap, Serum 14BUN 23CREAT 1.44 HGFR- Non 49 AGFR- 59 ACalcium, Serum 9.5Phosphorus, Serum 4.0ALB 4.0 Radiology Results: Results: Conclusion:CONCLUSIONS:Right Upper PVR: Baseline indices less than 0.80 and waveforms appear abnormal.Clinical correlation is advised. Incomplete palmar arch with good collaterals.Left Upper PVR: Baseline indices > 0.80 andwaveforms appear normal. Incompletepalmar arch with good collaterals. [facility] LAB PVR (Arterial Physiologic) BROOKS [Mar 25 2018 10:45PM] Conclusion:CONCLUSIONS:Right Carotid: Findings are consistent with less than 50% stenosis of the rightICA. Right external carotid artery appears patent with no evidenceof stenosis.The right vertebral artery is patent with antegrade flow. No evidence ofhemodynamicallysignificant stenosis in the right subclavian.Left Carotid: Findings [...] and may make absolute Segmental Limb Pressures (BUY BOAT OPERATOR) unreliable.Triphasic flow is noted in the left dorsalis pedis artery, left posteriortibial artery andleft common femoral artery. [facility] LAB PVR (Arterial Physiologic) BROOKS [Mar 25 2018 7:15PM] Assessment and Plan:Assessment:67 yo M with HTN, DLD, T2DM, Addisson's, GERD, prostate ca s/p prostatectomy in20 12, hypothyroidism, psoriasis, and most recently diagnosed with a PE andmultivessel CAD [facility]to [facility]ology at [facility] 03/18 for CABG eval. Multiple PEs- addison. Segmental and subsegmental PE on CT- Repeat TTE --> No Right dilation or strain- 2V CXR --> No radiographic evidence of acute cardiopulmonary process.- Appreciate Pulmonary assistance- per pulm NO need for repeat CT chest prior to OR- c/w Heparin gtt- 03/23 IVC Filter placement- Delay CABG for [address] Sy Anderson 03/31- plan for 3-6 months anticoagulation (1st episode unprovoked PE)- Hypercoagulable work up pending- PSA <10 Multivessel CAD- 03/19 TTE EF 60-65%, impaired relaxation- EKG without acute ST T wave changes- cont Atorva 40 mg- Cardiac Cath uploaded: 03/16 at [facility] LM: 10-20%, LAD prox: 30%, LAD mid:95%, Diag 3rd: 99%, RCA: 85 %, PLV: 50%, Circ: 95%- Planfor CABG with Dr. Gaston on 03/31 s/p [...] increase lispro to 10 units TID AC [place]'s disease- 03/22 Reduce fludrocortisone to 0.05 mg MWFSun- 03/20 Reduce hydrocortisone to 10m g/5mg/2.5mg- 03/23 While NPO: Hydrocortisone 30mg/10mg/5mg- 03/24 Back [...] Friday Seen and discussed with Dr. Arteaga Signature/Cosignature/Attestation:Attending Only - Shared Visit with Advanced Practice ProviderThis is a sharedvisit. I have reviewed the Advanced Practice Providers encounter note,approve the Advanced Practice Providers documentation, and provide thefollowing additional information from my personal encounter.Comments/ Additional FindingsAwait CABG.Continue heparin gtt for PE. Electronic Signatures:Vito Patino (HEALTH AND SAFETY TECH- IRON WORKER APPRENTICE) (Signed 29-Mar-2018 15:36)Authored: Service, Subjective Data, Objective Data, Assessment and Plan,Signature/Cosignature/AttestationLeonel Arteaga) (Signed 29-Mar-2018 17:23)Authored: Signature/Cosignature/AttestationCo-Signer: Service, Subjective Data, Objective Data, Assessment and Plan,Signature/Cosignature/Attestation Last Updated: 29-Mar-2018 17:23 by Leonel Arteaga)[facility] ClinicDaily Progress Note-Endocrinologyon 23-52-1656Ylpdqjv mass concConsult Type: subsequent visit/care Service: Endocrinology Subjective Data:DON ELKINS is a 67 yearold Male who is Hospital Day # 12. OR postponed till Friday. Objective Data: Objective Information:T EMPFJgE9Fsake24.04956870/8596%Date/Time03/29 7: 7: 7: 7: 7:35Range(36C - 36.4C ) (67 - 92 ) (18 - 20 ) (131 - 161 )/ (70 - 93 ) (92% -96% ) Pain with Activity reported at 03/29 8:00: 0Pain at Rest reported at 03/29 8:00: 0 Physical Exam: Constitutional: Well developed,awake/alert/oriented x3, no distress, alert andcooperativeGastrointestinal: Nondistended, soft, non- tender, no rebound tenderness orguarding, no masses palpable, no organomegaly, +BS, no bruitsSkin: Warm and dry, no lesions, no rashes Medication: Medications: Continuous Medications 1. Sodium Chloride 0.9% .: 250 mL IntraVenous Scheduled Medications 1. Aspirin Chewable: 81 mg Oral Daily2. Atorvastatin: 40 mg Oral Daily3. Carvedilol : 12.5 mg Oral 2 Times a Day4. Citalopram: 20 mg Oral Daily5. Docusate 50 mg - Senna 8.6 m tablet(s) Oral 2 Times a Day6. Fludrocortisone: 0.05 mg Oral 7. Heparin (Repeat Bolus) Injectable: 4000 unit(s) IntraVenous Push Every 6Osbmk6. Hydrocortisone: 10 mg Oral 9. Hydrocortisone: 5 mg Oral 10. Hydrocortisone: 2.5 mg Oral 11. Insulin Glargine (Lantus) Injectable: 30 unit(s) SubCutaneous Every 84Sewev26. Insulin Lispro (HumaLOG) Injectable: 12 unit(s) SubCutaneous 3 Times aDay Before Meals13.Insulin Lispro Mild Corrective Scale: unit(s) SubCutaneous 3 Times a DayBefore Meals14. Levothyroxine: 150 microgram(s) Oral Daily15. Mupirocin 2%: 0.5 application(s) Each Nostril 2 Times a Day16. Pantoprazole: 40 mg Oral Daily17. rOPINIRole: 6 mg Oral 18. Sodium Chloride 0.65% Nasal [place]: 2 spray(s) Each Nostril 2 Times aDay PRN Medications 1. Dextrose 50% in Water Injectable: 25 gram(s) IntraVenous Push Every 97Qugemyy6. Glucagon Injectable: 1 mg IntraMuscular Every 15 Minutes3. Polyethylene Glycol: 17 gram(s) Oral Daily Currently Suspended Medications 1. Chlorhexidine Gluconate 4% Topical: 1 application(s) Topical Once Recent Lab Results: Results: I have reviewed these laboratory results: Glucose_POCT Trending View Zghwyw17-Epe-8629 07:09:00 28-Mar-2018 19:50:00 28-Mar-2018 16:38:00 28-Mar-2018 12:35:00 28-Mar-2018 07:38:00 27-Mar-2018 22:33:00Glucose-FEHO170 H 271 H 363 H 231 H 171 H 268 H Renal Function Panel 28-Mar-2018 21:29:00 ResultValueGlucose, Serum 220 HNA 139K 4.5CL 103Bicarbonate, Serum 27Anion Gap, Serum 14BUN 23CREAT 1.44 HGFR- Non 49 AGFR- 59 ACalcium, Serum 9.5Phosphorus, Serum 4.0ALB 4.0 Assessment and Plan:Assessment: Mr. Elkins is a 67 yo WM with no known historyof CAD, who has a past medicalhistory of HTN, HLD, T2DM, Brigida's disease, hypothyroidism, COPD, AKASH onCPAP, prostate ca s/p prostatectomy in 2011, and psoriasis who was [facility]to [facility] service at [facility] on 03/18 forCA eval.Endocrine consulted fr evaluation of [place] disease and treatment periop Patient was on supra-therapeutic dose of HCT 20-0-20 , fludrocortisone 0.1 ,mgdailyPatient has uncontrolled HTN and uncontrolled BSMost likely tomorrow (03/23) IVC filter placement Recommendations:1. Brigida's Disease-- Fludrocortisone 0.05 mg 4 times weekly ( and friday)-- Continue Hydrocortisone to 10-5-2.5 mg at 1xc-41hi-8hm DAILY as of tomorrow -On the day [...] dose before dinner)-- Continue ISS 2 units forevery 50 above 150-- POCT AC and qHs-- Hypoglycemia protocol--Diabetic diet--will follow Please page with questions [phone] Patient seen and examined, plan discussed with Dr See Pimentel Signature/Cosignature/Attestation:Attending AttestationI saw and evaluated the patient. I personally obtainedthe keyand critical portions of the history and physical exam or wasphysically present for judge and critical portions performed by theresident/fellow. I reviewed the resident/fellows documentation and discuss edthe patient with the resident/fellow. I agree with the resident/fellowsmedical decision making asdocumented in the residents note.I personally evaluated the patient (as noted in the above attestation) [id number] Electronic Signatures:Marisol Monet) (Signed 30-Mar-2018 14:34)Authored: Si gnature/Cosignature/AttestationCo-Signer: Service, Subjective Data, Objective Data, Assessment and Plan,Signature/Cosignature/AttestationHasmukh Stephenson (Resident)) (Signed 29-Mar-2018 11:39)Authored: Service, Subjective Data, Objective Data, Assessment and Plan,Signature/Cosignature/Attestation Last Updated: 30-Mar-2018 14:34 by Marisol Monet)[facility]watonna ClinicGLUCOSE-POCTon 36-90-9766Zzstgas mass otvn520 mg/nSSsqy[address] [place], [place] [address]Comment on above:Performed By: #### GLUPO ####[id number], [place] [address]Otzijnv mass tqgg032 mg/wYIwcw7722 Wilson StreetComment on above:Performed By: #### GLUPO ####[id number], [place] [address]Vrvppuy mass jpxj534 mg/qNJocl2722 Wilson StreetComment on above:Performed By: #### GLUPO ####[id number], [place] [address]Qpnuhsx mass znht428 mg/rORsxj8122 Wilson StreetComment on above:Performed By: #### GLUPO ####[id number], [place] [address]RFMMVKF ASSAY,UFHon 90-70-1353LQAJTVS ASSAY,UFH0.4 IU/mL Owatonna ClinicComment on above:Result Comment: The therapeutic reference range for UFH may be either 0.3-0.6 IU/mL or 0.3-0.7 IU/mL based on the clinical setting for anticoagulant therapy and the associated nomogram used. For heparin dosing guidelines based on clinical scenario and Heparin Assay results, please refer to local Pharmacy and the [facility] Guidelines for Anticoagulation therapy available on the [facility] intranet at:[email or web address]/Pages/[facility]_Guide lines_for_Anticoagu.aspxPerformed By: #### HAUF ####[id number], [place] [address]VJNOEAP ASSAY,UFH0.4 IU/mLNormalHealthSouth - [facility] Toms RiverComment on above:Result Comment: The therapeutic reference range for UFH may be either 0.3-0.6 IU/mL or 0.3-0.7 IU/mL based on the clinical setting for anticoagulant therapy and the associated nomogram used. For heparin dosing guidelines based on clinical scenario and Heparin Assay results, please refer to local Pharmacy and the [facility] Guidelines for Anticoagulation therapy available on the [facility] intranet at:[email or web address]/Pharmacy/Pages/[facility]_Guide lines_for_Anticoagu.aspxPerformed By: #### HAUF ####[id number], [place] [address]NQCFM FUNCTION PANELon 65-25-0748Cghrvvg mass conc3.9 g/dLNormal3.4 - 5.0[facility] Toms RiverComment on above:Performed By: #### RENAL ####[id number], [place] [address]Cqgam gap 3 molar conc19 mmol/GHvrkjx04 - 20[facility] T[facility] RiverComment on above:Performed By: #### RENAL ####[id number], [place] [address]Qslxbph mass conc9.3 mg/dLNormal8.6 - 10.6[facility] T[facility] RiverComment on above:Performed By: #### RENAL ####[id number], [place] [address]Nychpube molar conc99 mmol/IMkgjml55 - 107[facility] Toms RiverComment on above:Performed By: #### RENAL ####[id number], [place] [address]Sbxmnxfdql mass conc1.32 mg/dLHigh0.50 - 1.30[facility] Toms RiverComment on above:Performed By: #### RENAL ####[id number], [place] [address]WGT-AABLBTJ AM.65 mL/min/1.88a9Mzypur>60[facility] Toms RiverComment on above:Result Comment: CALCULATIONS OF ESTIMATED GFR ARE PERFORMED USING THE MDRD STUDY EQUATION FOR THE IDMS-TRACEABLE CREATININE METHODS. CLIN CHEM 2007;53:766-72 Performed By: #### RENAL ####[id number], [place] [address]XMC-IVD AM.54 mL/min/1.59q7Hbwehrbc>60[facility] Toms RiverComment on above:Performed By: #### RENAL ####[id number] [place] [address] Glucose mass rxon220 mg/hUIjcg06 - 99[facility] Toms RiverComment on above:Performed By: #### RENAL ####[id number], [place] [address]LMA2 molar conc (Bld)19 mmol/LLow21 - 32[facility] Toms RiverComment on above: Performed By: #### RENAL ####[id number], [place] [address]Rmdvnvexj mass conc4.2 mg/dLNormal2.5 - 4.9[facility] T[facility] RiverComment on above: Result Comment: The performance characteristics of phosphorus testing in heparinized plasma have been validated by the individual laboratory site where testing is performed. Testing on heparinizedplasma is not approved by the FDA; however, such approval is not necessary.Performed By: #### RENAL ####[id number], [place] [address]Baukfkgvr molar conc4.6 mmol/L Normal3.5 - 5.3[facility] Toms RiverComment on above:Performed By: #### RENAL ####[id number], [place] [address]Ooifwk molar uvhk274 mmol/L Fpd690 - 145[facility] Toms RiverComment on above:Performed By: #### RENAL ####[id number], [place] [address]Exuk nitrogen mass conc24 mg/dLHigh 6 - 23[facility] InstituteComment on above:Performed By: #### RENAL ####[id number], [place] [address]Ssuqxhr mass conc4.0 g/dLNormal3.4 - 5.0[facility] InstituteComment on above:Performed By: #### RENAL ####[id number], [place] [address]Ixkpa gap 3 molar conc14 mmol/L Dgfhpw26 - 20[facility] Toms RiverComment on above:Performed By: #### RENAL ####[id number], [place] [address]Skzhjud mass conc9.5 mg/dL Normal8.6 - 10.6[facility] Toms RiverComment on above:Performed By: #### RENAL ####[id number] [address]Hyfgwbtl molar wjhq801 mmol/L Elnjmr91 - 107[facility]oms RiverComment on above:Performed By: #### RENAL ####[id number], [place] [address]Avpaxkhtrn mass conc1.44 mg/dLHigh0.50 - 1.30[facility] Toms RiverComment on above:Performed By: #### RENAL ####[id number], [place] [address]RJH-XSADKGW AM.59 mL/min/1.62w9Wxtmdloz>60[facility] InstituteComment on above:Result Comment: CALCULATIONS OF ESTIMATED GFR ARE PERFORMED USING THE MDRD STUDY EQUATION FOR THE IDMS-TRACEABLE CREATININE METHODS. CLIN CHEM 2007;53:766-72 Performed By: #### RENAL ####[id number], [place] [address]BCR-SVG AM.49 mL/min/1.97s2Rkythfoi>60[facility] Toms RiverComment on above:Performed By: #### RENAL ####[id number] [place] [address] Glucose mass yafs850 mg/wKZvpt50 - 99[facility] RiverComment on above:Performed By: #### RENAL ####[id number], [place] [address]FFP7 molar conc (Bld)27 mmol/MHmxxud49 - 32[facility] Toms RiverComment on above:Performed By: #### RENAL ####[id number] [place] [address] Phosphate mass conc4.0 mg/dLNormal2.5 - 4.9[facility] T[facility] RiverComment on above:Result Comment: The performance characteristics of phosphorus testing in heparinized plasma have been validated by the individual laboratory site where testing is performed. Testing on heparinizedplasma is not approved by the FDA; however, such approval is not necessary.Performed By: #### RENAL ####[id number], [place] [address]Bjvbrzwnt molar conc4.5 mmol/L Normal3.5 - 5.3[facility] Toms RiverComment on above:Performed By: #### RENAL ####[id number], [place] [address]Reghvn molar cgzv110 mmol/L Wkdxwk590 - 145[facility] T[facility] RiverComment on above:Performed By: #### RENAL ####[id number], [place] [address]Fjuf nitrogen mass conc23 mg/dLNormal6 - 23[facility] RiverComment on above:Performed By: #### RENAL ####[id number], [place] [address]OQMiv 96-61-2374Gkaoqajfsqz distribution width Auto Ratio (RBC)12.8 %Bzfdgt21.5 - 14.5[facility] Toms RiverComment on above:Performed By: #### CBC ####[id number], [place] [address]Oeysfouugy Auto Volume Fraction (Bld)41.4 %Funowq14.0 - 52.0[facility] Toms RiverComment on above:Performed By: #### CBC ####[id number], [place] [address]Jngugvsbym mass conc (Bld)13.9 g/dL Wnuila38.5 - 17.5[facility] T[facility] RiverComment on above:Performed By: #### CBC ####[id number], [place] [address]RZGX Auto mass conc (RBC)33.6 g/wAExvveq44.0 - 36.0[facility] RiverComment on above:Performed By: #### CBC ####[id number], [place] [address]MRY Auto Entitic volume (RBC)93 lBBobikp73 - 100[facility] T[facility] RiverComment on above:Performed By: #### CBC ####[id number], [place] [address]Rwckmrweu RBC/100 WBC Ratio (Bld)0.0 /100 WBCNormal0.0-0.0[facility] RiverComment on above: Performed By: #### CBC ####[id number], [place] [address]Qltukswpc Auto #/vol (Bld)230 10*3/aHZyhucl359 - 450[facility] T[facility] RiverComment on above:Performed By: #### CBC ####[id number], [place] [address]WQU Auto #/vol (Bld)4.46 x10E12/LLow4.50 - 5.90[facility] RiverComment on above:Performed By: #### CBC ####[id number], [place] [address]HNZ Auto #/vol (Bld)8.2 10*3/uLNormal4.4 - 11.3[facility] RiverComment on above:Performed By: #### CBC ####[id number], [place] [address]Hhjkm Progress Note-Cardiologyon 55-43-8463Yreixfv mass concService: Cardiology Subjective Data:DON ELKINS is a 67 year old Male who is Hospital Day # 11. [place]anaco tional Information: Resting in bed, has been ambulating in halls, hypercoagulable work up pending,BS better controlled - plan for OR Saturday 03/31- c/w Heparin gtt Objective Data: Objective Information:T HFCDQaK7Gmspx73.75469408/8196%Date/Time03/28 8: 8: 8: 8: 8:00Range(35.9C - 36.7C ) (71 - 85 ) (17 - 20 ) (125 - 165 )/ (72 - 97 ) (94%- 96% ) Pain at Rest reported at 03/28 0:05: 0 Zqaneff65/10 3:52: Weight in kg (Weight (kg)) 107. 3:52: Weight in lbs ((lbs)) 237.2 Physical Exam: Constitutional: Resting in bed, NADHead/Neck: No JVDRespiratory/Thorax: CTABCardiovascular: RRR, S1 W3Tveogcxhlkcuvtoy: soft, NT/NDExtremities: No LE edemaNeurological: alert and oriented q8Hqqwupgwikpua: Appropriate mood and behaviorSkin: psoriasis plaque over elbows and knees; otherwise warm and dry Medication: Medications: Continuous Medications 1. Sodium Chloride 0.9% .: 250 mL IntraVenous Scheduled Medications 1. Aspirin Chewable: 81 mg Oral Daily2. Atorvastatin: 40 mg Oral Daily3. Carvedilol: 12.5 mg Oral 2 Times a Day4. Citalopram: 20 mg Oral Daily5. Docusate 50 mg - Senna 8.6 m tablet(s) Oral 2 Times a Day6. Fludrocortisone: 0.05 mg Oral 7. Heparin (Repeat Bolus) Injectable: 4000 unit(s) IntraVenous Push Every 4Frgod0. Hydrocortisone: 10 mg Oral 9. Hydrocortisone: 5 mg Oral 10. Hydrocortisone: 2.5 mg Oral 11. Insulin Glargine (Lantus) Injectable: 30 unit(s) SubCutaneous Every 65Akirh81. Insulin Lispro (HumaLOG) Injectable: 10 unit(s) SubCutaneous 3 Times aDay Before Meals13. Insulin Lispro Mild Corrective Scale: unit(s) SubCutaneous 3 Times a DayBefore Meals14. Levothyroxine: 150 microgram(s) Oral Daily15. Mupirocin 2%: 0.5 application(s) Each Nostril 2 Times a Day16. Pantoprazole: 40 mg Oral Daily17. rOPINIRole: 6 mg Oral 18. Sodium Chloride 0.65% Nasal [place]: 2 spray(s) Each Nostril 2 Times aDay PRN Medications 1. Dextrose 50% in Water Injectable: 25 gram(s) IntraVenous Push Every 98Ufaunvf4. Glucagon Injectable: 1 mg IntraMuscular Every 15 Minutes3. Polyethylene Glycol: 17 gram(s) Oral Daily Currently Suspended Medications 1. Chlorhexidine Gluconate 4% Topical: 1 application(s) Topical Once Recent Lab Results: Results: I have reviewed these laboratory results: Glucose_POCT Trending View Ljufxq40-Rie-752192:38:00 27-Mar-2018 22:33:00Glucose-VFUC479 H 268 H Heparin assay, UFH 27-Mar-2018 19:19:00 ResultV alueHeparin assay, UFH 0.4 Complete Blood Count 27-Mar-2018 19:18:00 ResultValueWhite Blood Cell Count 8.2Nucleated Erythrocyte Count 0.0Red Blood Cell Count 4.46 LHGB 13.9HCT 41.4MCV 93MCHC 33.6PLT 230RDW-CV 12.8 Renal Function Panel 27-Mar-2018 19:18:00 ResultValueGlucose, Serum 202 HNA 135 LK 4.2 CL 98Bicarbonate, Serum 23Anion Gap, Serum 18BUN 22CREAT [...] is patent with antegrade flow.No evidence of hemodynami sirisha significant stenosis in the left subclavian. VASC LAB Carotid Artery Duplex Ultrasound [Mar 9:52PM] Conclusion:CONCLUSIONS:Left Lower Vein Mapping: The left great saphenous vein appears widely patentwith no evidence of thrombosis or fibrosis.Right Lower Vein Mapping: The right great saphenous vein appears widely patentwith no evidence of thrombosis or fibrosis. VASC LAB Pre-op VesselVein Mapping [Mar 25 2018 7:19PM] Conclusion:CONCLUSIONS:Right Lower [...] and may make absolute Segmental Limb Pressures (BUY BOAT OPERATOR) unreliable.Triphasic flow is noted in the left dorsalis pedis artery, left posteriortibial artery and left common femoral artery. VASC LAB PVR (Arterial Physiologic) BROOKS [Mar 25 2018 7 :15PM] Assessment and Plan:Assessment:67 yo M with HTN, DLD, T2DM, Addisson's, GERD, prostate ca s/p prostatectomy [id number], hypothyroidism, psoriasis, and most recently diagnosed with a PE andmultivessel CAD transferred to cardiology at [facility] from [facility] 03/18 for CABG eval. Multiple PEs- [...] pending- PSA <10 Multivessel CAD- 03/19 TTE EF60-65%, impaired relaxation- EKG without acute ST T wave changes- cont Atorva 40 mg- Cardiac Cath uploaded: 03/16 at [facility] LM: 10- 20%, LAD prox: 30%, LAD mid:95%, Diag 3rd: [...] increase lispro to 10 units TID AC [place]'s disease- 03/22 Reduce fludrocortisone to 0.05 mg [...] Friday Seen and discussed with Dr. Arteaga Signature/Cosignature/Attestation:Attending Only - Shared Visit with Advanced Practice ProviderThis is a sharedvisit. I have reviewed the Advanced Practice Providers encounter note,approve the Advanced Practice Providers documentation, and provide thefollowing additional information from my personal encounter.Comments/ Additional FindingsContinue anticoagulation with heparin gtt.Await CABG. Electronic Signatures:Vito Patino (HEALTH AND SAFETY TECH-IRON WORKER APPRENTICE) (Signed 1 10:27)Authored: Service, Subjective Data, Objective Data, Assessment and Plan,Signature/Cosignature/AttestationLeonel Arteaga) (Signed 28-Mar-2018 20:06)Authored: Signature/Cosignature/AttestationCo-Signer: Service, Subjective Data, Objective Data, Assessment and Plan,Sign ature/Cosignature/Attestation Last Updated: 28-Mar-2018 20:06 by Leonel Arteaga)[facility] ClinicGLUCOSE-POCTon 03-28-2018 Glucose mass akln181 mg/uFCjjg1922 Wilson StreetComment on above:Performed By: #### GLUPO ####[id number] [place] [address] Glucose mass qogy940 mg/aIZrdz7322 Wilson StreetComment on above:Performed By: #### GLUPO ####[id number] [place] [address] Glucose mass yipv462 mg/fEQucl8822 Wilson StreetComment on above:Performed By: #### GLUPO ####[id number] [place] [address] Glucose mass twpb149 mg/wBZdmd63 - 99[facility] T[facility] RiverComment on above:Performed By: #### GLUPO ####[id number] [place] [address] Glucose mass ogkf312 mg/zTVbty78 - 99[facility] T[facility] RiverComment on above:Performed By: #### GLUPO ####[id number] [place] [address] RENAL FUNCTION PANELon 15-06-5898Hayxzye mass conc3.9 g/dLNormal3.4 - 5.0[facility] T[facility] RiverComment on above:Performed By: #### RENAL ####[id number], [place] [address]Kcvmk gap 3 molar conc18 mmol/YEsqauw52 - 20[facility] T[facility] RiverComment on above:Performed By: #### RENAL ####[id number], [place] [address]Cqjjwml mass conc9.3 mg/dLNormal8.6 - 10.6[facility] T[facility] RiverComment on above:Performed By: #### RENAL ####[id number], [place] [address]Rjgngxpm molar conc98 mmol/YBkhrdb05 - 107[facility] T[facility] RiverComment on above:Performed By: #### RENAL ####[id number], [place] [address]Qraplnzsej mass conc1.48 mg/dLHigh0.50 - 1.30[facility] T[facility] RiverComment on above:Performed By: #### RENAL ####[id number], [place] [address]PMN-NVTXLAZ AM.57 mL/min/1.17s5Mgzpbsih>60[facility] RiverComment on above:Result Comment: CALCULATIONS OF ESTIMATED GFR ARE PERFORMED USING THE MDRD STUDY EQUATION FOR THE IDMS-TRACEABLE CREATININE METHODS. CLIN CHEM 2007;53:766-72Performed By: #### RENAL ####[id number], [place] [address]FWO-ZDK AM.47 mL/min/1.73m2 Abnormal>60[facility] T[facility] RiverComment on above:Performed By: #### RENAL ####[id number], [place] [address]Gkaqnnw mass ohkv837 mg/mMAvfp46 - 99[facility] T[facility] RiverComment on above:Performed By: #### RENAL ####[id number], [place] [address]DGL3 molar conc (Bld)23 mmol/L Sugxay61 - 32[facility] T[facility] RiverComment on above:Performed By: #### RENAL ####[id number], [place] [address]Kloisumky mass conc4.0 mg/dL Normal2.5 - 4.9[facility] T[facility] RiverComment on above:Result Comment: The performance characteristics of phosphorus testing in heparinized plasma have bee n validated by the individual laboratory site where testing is performed. Testing on heparinizedplasma is not approved by the FDA; however, such approval is not necessary.Performed By: #### RENAL ####[id number], [place] [address]Lmvvqhcsx molar conc4.2 mmol/LNormal3.5 - 5.3[facility] Comment on above:Performed By: #### RENAL ####[id number], [place] [address]Uskixi molar uydv540 mmol/TJep933 - 145[facility] Comment on above:Performed By: #### RENAL ####[id number], [place] [address]Rwff nitrogen mass conc22 mg/dLNormal6 - 23[facility] Comment on above:Performed By: #### RENAL ####[id number], [place] [address]Uuexofgx Event Note-Revaluation of PEon 25-75-2327Pmecwoyy Event Note- Revaluation of PEEvent:Topic: Revaluation of PEDetails:Reviewed patient's case again. No [...] Updated: 27-Mar-2018 07:25 by Princess Garnica ( (Fellow))[facility] ClinicDaily Progress Note-Cardiologyon 44-02-8173Vltbckf mass concService: Cardiology Subjective Data:DON ELKINS is a 67 year old Male who is Hospital Day # 10. Additional Information:Patient feeling well. Out of bed and ambulating. No CP or SOB. Cont heparingtt. - plan for OR Wednesday 03/28- will draw hypercoagulable labs- increase lispro to 10units TID AC Objective Data: Objective Information: T INDGNhT4Dndnt96.84612126/8494%Date/Time03/27 8: 8: 8: 8: 8:05Range(35.7C - 36.4C ) (73 - 78 ) (18 - 21 ) (122 - 152 )/ (78 - 84 ) (94%- 97% )Wtsdcaa39/9 4:54: Weight in kg (Weight (kg)) 26465/9 4:54: Weight in lbs ((lbs)) 236 Physical Exam:Constitutional: Resting in bed, NADHead/Neck: No JVDRespiratory/Thorax: CTABCardiovascular: RRR, S1 N9Fraxqjrwmvtmqqkm: soft, NT/NDExtremities: No LE edemaNeurological: alert and oriented y9Ikresrwrprnab: Appropriate mood and behaviorSkin: psoriasis plaque over elbows and knees; otherwise warm and dry Medication: Medications: Continuous Medications 1. Sodium Chloride 0.9% .: 250 mL IntraVenous Scheduled Medications 1. Aspirin Chewable: 81 mg Oral Daily2. Atorvastatin: 40 mg Oral Daily3. Carvedilol: 12.5 mg Oral 2 Times a Day4. Citalopram: 20 mg Oral Daily5. Docusate 50 mg - Senna 8.6 m tablet(s) Oral 2 Times a Day6. Fludrocortisone: 0.05 mg Oral 7. Heparin (Repeat Bolus) Injectable: 4000 unit(s) IntraVenous Push Every 3Tzgbm2. Hydrocortisone: 10 mg Oral 9. Hydrocortisone: 5 mg Oral 10. Hydrocortisone: 2.5 mg Oral 11. Insulin Glargine (Lantus) Injectable: 30 unit(s) SubCutaneous Every 17Pthko72. Insulin Lispro (HumaLOG) Injectable: 8 unit(s) SubCutaneous 3 Times aDay Before Meals13. Insulin Lispro Mild Corrective Scale: unit(s) SubCutaneous 3 Times a DayBefore Meals14. Levothyroxine: 150 microgram(s) Oral Daily15. Mupirocin 2%: 0.5 application(s) Each Nostril 2 Times a Day16. Pantoprazole: 40 mg Oral Daily17. rOPINIRole: 6 mg Oral 18. Sodium Chloride 0.65% Nasal [place]: 2 spray(s) Each Nostril 2 Times aDay PRNMedications 1. Dextrose 50% in Water Injectable: 25 gram(s) IntraVenous Push Every 29Jqgwpog9. Glucagon Injectable: 1 mg IntraMuscular Every 15 Minutes3. PolyethyleneGlycol: 17 gram(s) Oral Daily Currently Suspended Medications 1. Chlorhexidine Gluconate 4% Topical: 1 application(s) Topical Once Recent Lab Results: Results: I have reviewed these laboratory results: Glucose_POCT Trending View Pashzm79-Psz-7188 08:02:00 26-Mar-2018 21:14:00 26-Mar-2018 19:41:00 26-Mar-2018 15:43:00 26-Mar-2018 12:28:00 26-Mar-2018 07:27:00Glucose-TGZC557 H 302 H 237 H 256 H 285 H 154 H Complete Blood Count Trending View Nmxnur78-Vsz-6665 16:27:00 26-Mar-2018 00:38:00White Blood Cell Count8.0 8.2Nucleated Erythrocyte Count0.0 0.0Red Blood Cell Count4.47 L 4.36 LHGB14.1 13.5HCT41.0 39.6 LMCV92 68LHNK13.4 34.9YVD447 211RDW-CV12.8 12.9 Renal Function Panel Trending View Sykbyd87-Puv-9805 16:27:00 08-Mar-2018 00:38:00Glucose, Zufvx760 H 153 OJD784 138K4.6 4.9FJ875 102Bicarbonate, Serum25 24Anion Gap, Serum16 55VUV46 45IHXVD5.46 H 1.40 HGFR-Non Dczogvoo22 A 50 AGFR- Txnhlxqq96 A 61Calcium, Serum9.4 9.3Phosphorus, Serum4.2 4.8ALB4.0 3.9 Heparin assay, UFH Trending View Zjwhnw45-Ljs-8282 16:27:00 26-Mar-2018 00:39:00Heparin assay, UFH0.3 0.4 Radiology [...] consistent with less than 50% stenosis of therightICA. Right external carotid artery appears patent with no evidence of stenosis.The right vertebral artery is patent with antegrade flow. No evidence ofhemodynamically significant stenosis in theright subclavian.Left Carotid: Findings are consistent with less [...] Vessel Vein Mapping [Mar 25 2018 7:19PM] Conclusion:CON CLUSIONS:Right Lower PVR: No evidence of arterial occlusive [...] and may make absolute Segmental Limb Pressures (BUY BOAT OPERATOR) unreliable.Triphasic flow is noted in the left dorsalis pedis artery, left posteriortibial artery and left common femoral artery.VASC LAB PVR (Arterial Physiologic) BROOKS [Mar 25 2018 7:15PM] Assessment and Plan:Assessment:67 yo M with HTN, DLD, T2DM, Addisson's, GERD, prostate ca s/p prostatectomy [id number], hypothyroidism, psoriasis, and most recently diagnosed with a PE andmultivessel CAD transferred to cardiology at [facility] from [facility] 03/18 for CABG eval. Multiple PEs- addison. Segmental and subsegmental PE on CT- Repeat TTE --> No Right dilation or strain- 2V CXR --> No radiographic evidence of acute cardiopulmonary process.- Appreciate Pulmonary assistance- per pulm NO need for repeat CT chest prior to OR- c/w Heparin gtt- 03/23 IVC Filter placement- Delay CABG for 1 week [address]ative plan with Dr. Lingday 03/31- plan for 3-6 months anticoagulation (1st episode unprovoked PE)- c/s hypercoagulablework up as outpatient and ensure age appropriate cancerscreening complete- will order hypercoagulable labs- PSA <10 Multivessel CAD- 03/19 TTE EF 60-65%, impaired relaxation- EKG without acute ST Twave changes- cont Atorva 40 mg- Cardiac Cath uploaded: 03/16 at [facility] LM: 10-20%, LAD prox: [...] increase lispro to 10 units TID AC [place]'s disease- 03/22 Reduce fludrocortisone to 0.05 mg MWFSun- 03/20 Reduce hydrocortisone to 10mg/5mg/2.5mg- 03/23 While NPO: Lkutkyyjbmvqpk13xw/10mg/5mg- 03/24 Back to Hydrocortisone 10mg/5mg/2.5mg- ON DAY [...] Friday Seen and discussed with Dr. Arteaga Signature/Cosignature/Attestation:Attending Only - Shared Visit with Advanced Practice ProviderThis is a sharedvisit. I have r eviewed the Advanced Practice Providers encounter note,approve the Advanced Practice Providers documentation, and provide thefollowing additional information from my personal encounter.Comments/ Additional FindingsContinue anticoagulation.Await CABG. Electronic Signatures:Leonel Arteaga) (Signed 28-Mar-2018 20:04)Authored: Signature/Cosignature/AttestationCo-Signer: Service, Subjective Data, Objective Data, Assessment and PlanJamieKate (HEALTH AND SAFETY TECH-IRON WORKER APPRENTICE) (Signed 27-Mar-2018 16:37)Authored: Service, Subjective Data, Objective Data, Assessment and Plan Last Updated: 28-Mar-2018 20:04 by Leonel Arteaga)[facility] ClinicDaily Progress Note-Endocrinologyon 72-10-6515Gntoupf mass concConsult Type: subsequent visit/care Service: Endocrinology Subjective Data:DON ELKINS is a 67 yearold Male who is Hospital Day # 10. Objective Data: Objective Information:T WARGXcA7Hobkq01.91133406/7795%Date/Time03/27 15: 15: 15: 15: 15:43Range(35.9C - 36.5C ) (71 - 85 ) (17 - 21 ) (122 - 152 )/ (75 - 84 ) (94%- 97% ) Pain at Rest reported at 03/27 15:00: 0 Medication: Medications: Continuous Medications 1. Sodium Chloride 0.9% .: 250 mL IntraVenous Scheduled Medications 1. Aspirin Chewable: 81 mg Oral Daily2. Atorvastatin: 40 mg Oral Daily3. Carvedilol: 12.5 mg Oral 2 Times a Day4. Citalopram: 20 mg Oral Daily5. Docusate 50 mg - Senna 8.6 m tablet(s) Oral 2 Times a Day6. Fludrocortisone: 0.05 mg Oral 7. Heparin (Repeat Bolus) Injectable: 4000 unit(s) IntraVenous Push Every 1Cldgl1. Hydrocortisone: 10 mg Oral 9. Hydrocortisone: 5 mg Oral 10. Hydrocortisone: 2.5 mg Oral 11. Insulin Glargine (Lantus) Injectable: 30 unit(s) SubCutaneous Every 17Cfjip69. Insulin Lispro (HumaLOG) Injectable: 10 unit(s) SubCutaneous 3 Times aDay Before Meals13. Insulin Lispro Mild Corrective Scale: unit(s) SubCutaneous 3 Times a DayBefore Meals14. Levothyroxine: 150 microgram(s) Oral Daily15. Mupirocin 2%: 0.5 application(s) Each Nostril 2 Times a Day16. Pantoprazole: 40 mg Oral Daily17. rOPINIRole: 6 mg Oral 18. Sodium Chloride 0.65% Nasal [place]: 2 spray(s) Each Nostril 2 Times aDay PRN Medications 1. Dextrose 50% in Water Injectable: 25 gram(s) IntraVenous Push Every 36Cilktkw1. Glucagon Injectable: 1 mg IntraMuscular Every 15 Minutes3. Polyethylene Glycol: 17 gram(s) Oral Daily Currently Suspended Medications 1. Chlorhexidine Gluconate 4% Topical: 1 application(s) Topical Once Recent Lab Results: Results: I have reviewed these laboratory results: Glucose_POCT Trending View Zmimxy55-Swi-6335 16:33:00 27-Mar-2018 12:54:00 27-Mar-2018 08:02:00 26-Mar-2018 21:14:00 26-Mar-2018 19:41:00 26-Mar-2018 15:43:00 16-Pyj-712468:28:00 26-Mar-2018 07:27:00 25-Mar-2018 21:21:00Glucose-KPYE981 H 229 H 152 H 302 H 237 H 256 H 285H 154 H 181H Renal Function Panel Trending View Zvtdqb96-Mkb-1077 16:27:00 26-Mar-2018 00:38:00Glucose, Ckfnd595 H 153 MVD358 138K4.6 4.0HN526 102Bicarbonate, Serum25 24Anion Gap, Serum16 12FNV26 06DRNTF8.46 H 1.40 HGFR-Non Unjyshzo96 A 50 AGFR- Rmocfpir94 A 61Calcium, Serum9.4 9.3Phosphorus, Serum4.2 4.8ALB4.0 3.9 Assessment and Plan:Assessment: Mr. Elkins is a 67 yo WM with no known history of CAD, who has a past medicalhistory of HTN, HLD, T2DM, Brigida's disease, hypothyroidism, COPD, OSAonCPAP, prostate ca s/p prostatectomy in 2011, and psoriasis who was [facility] from [facility] on 03/18 forCA hectoral.Endocrine consulted fr evaluationof [place] disease and treatment periop Patient was on supra-therapeutic dose of HCT 20-0-20 , fludrocortisone 0.1 ,mgdailyPatient has uncontrolled HTN and uncontrolled BSMost likely tomorrow (03/23) IVC filter placement Recommendations:1. [place]'s Disease-- Fludrocortisone 0.05 mg 4 times weekly ( and friday)-- Continue Hydrocortisone to 10-5-2.5 mg at 8qt-61ht-0pb DAILY as of tomorrow -On the day [...] protocol--Diabetic diet--will follow Please page with questions [phone] Patient seen and examined, plan discussed with Dr Quevedo Signature/Cosignature/Attestation:Attending AttestationI saw and evaluated the patient. I personally obtainedthe judge and critical portions of the history and physical exam or wasphysically present for judge and critical portions performed by theresident/fellow. I reviewed the resident/fellows documentation and discussedthe patient with the resident/fellow . I agree with the resident/fellowsmedical decision making as documented in the residents note.I personally evaluated the patient (as noted in the above attestation) my36-Tox-2426 Electronic Signatures:Starr Quevedo) (Signed 31-Mar-2018 10:05)Authored: Signature/Cosignature/AttestationCo-Signer: Service, Subjective Data, Objective Data, Assessment and Plan,Signature/Cosignature/AttestationHasmukh Stephenson (Resident)) (Signed 27-Mar-2018 17:17)Authored: Service, Subjective Data,Objective Data, Assessment and Plan,Signature/Cosignature/Attestation Last Updated: 31-Mar-2018 10:05 by Starr Quevedo)[facility] ClinicGLUCOSE-POCTon 15-02-2502Dpubpqg mass cdqh859 mg/xVEfob[address] Comment on above:Performed By: #### GLUPO ####[id number], [place] [address]Rltymgs mass ovcm850 mg/hOComd1722 Wilson StreetComment on above:Performed By: #### GLUPO ####[id number] [place] [address] Glucose mass lcwd217 mg/tRIlbk4822 Wilson StreetComment on above:Performed By: #### GLUPO ####[id number] [place] [address] HEPARIN ASSAY,UFHon [id number] ASSAY,UFH0.4 IU/mLNCook HospitalComment on above:Result Comment: The therapeutic reference range for UFH may be either 0.3-0.6 IU/mL or 0.3-0.7 IU/mL based on the clinical setting for anticoagulant therapy and the associated nomogram used. For heparin dosing guidelines based on clinical scenario and Heparin Assay results, please refer to local Pharmacy and the [facility] Guidelines for Anticoagulation therapy available on the [facility] intranet at:[email or web address]/Pharmacy/Pages/[facility]_Guide lines_for_Anticoagu.aspxPerformed By: #### HAUF ####[id number], [place] [address]HUJty 14-23-7329Ekrfwsamkak distribution width Auto Ratio (RBC)12.8 %Hkzxzw44.5 - 14.5[facility] RiverComment on above: Performed By: #### CBC ####[id number], [place] [address]Rykasttydi Auto Volume Fraction (Bld)41.0 %Aevudq71.0 - 52.0[facility] Comment on above:Performed By: #### CBC ####[id number], [place] [address]Qzhxxehwnh mass conc (Bld)14.1 g/hYImhlmg04.5 - 17.5[facility] Toms RiverComment on above:Performed By: #### CBC ####[id number], [place] [address]MLYY Auto mass conc (RBC)34.4 g/zSJfqrzd42.0 - 36.0[facility] RiverComment on above:Performed By: #### CBC ####[id number], [place] [address]OXO Auto Entitic volume (RBC)92 xWJaqkfy92 - 100[facility] Toms RiverComment on above:Performed By: #### CBC ####[id number], [place] [address]Kqmqcqdhl RBC/100 WBC Ratio (Bld)0.0 /100 WBC Normal0.0-0.0[facility] RiverComment on above:Performed By: #### CBC ####[id number], [place] [address]Pbwvcenlk Auto #/vol (Bld)231 10*3/nOYiaoyx891 - 450[facility] Johnson Rehabilitation InstituteComment on above:Performed By: #### CBC ####[id number], [place] [address]GLF Auto #/vol (Bld)4.47 x10E12/LLow4.50 - 5.90[facility] RiverComment on above:Performed By: #### CBC ####[id number], [place] [address]ZSL Auto #/vol (Bld)8.0 10*3/uLNormal4.4 - 11.3[facility] RiverComment on above:Performed By: #### CBC ####[id number], [place] [address]Vcpfheorydb distribution width Auto Ratio (RBC)12.9 %Fecmeh49.5 - 14.5[facility] T[facility] RiverComment on above:Performed By: #### CBC ####[id number] [place] [address] Hematocrit Auto Volume Fraction (Bld)39.6 %Low41.0 - 52.0[facility] RiverComment on above:Performed By: #### CBC ####[id number], [place] [address]Yikewyguxg mass conc (Bld)13.5 g/cUFxywwv60.5 - 17.5[facility] RiverComment on above:Performed By: #### CBC ####[id number], [place] [address]ZDYV Auto mass conc (RBC)34.1 g/eLNtekjh45.0 - 36.0[facility] RiverComment on above:Performed By: #### CBC ####[id number], [place] [address]LMQ Auto Entitic volume (RBC)91 fL Qvxgjd55 - 100[facility] RiverComment on above:Performed By: #### CBC ####[id number], [place] [address]Dgruztebd RBC/100 WBC Ratio (Bld) 0.0 /100 WBCNormal0.0-0.0[facility] RiverComment on above:Performed By: #### CBC ####[id number], [place] [address]Zyyeczjrr Auto #/vol (Bld)211 10*3/kEPqcfwb984 - 450[facility] T[facility] RiverComment on above: Performed By: #### CBC ####[id number], [place] [address]AEA Auto #/vol (Bld)4.36 x10E12/LLow4.50 - 5.90[facility] RiverComment on above:Performed By: #### CBC ####[id number], [place] [address]LQQ Auto #/vol (Bld)8.2 10*3/uLNormal4.4 - 11.3[facility] RiverComment on above:Performed By: #### CBC ####[id number] [place] [address] Consulton 60-92-1801QsrgjxtZofwujhgd: No Known Allergies: Assessment:S: Dental consult requestedprior to CAB surgery due to suspected PARL presenton gonzalez. Pt reports no symptomsO: Periodontal disease present. No signs of gross decay detected clinically.Absence of swelling, oral pathology, abscess clinically. Review gonzalez- nopresence of PARL suspected and no cause of possible infection.A:P: No extractions recommended prior to surgery Signature/Cosignature/Attestation:Attending AttestationI reviewed the resident/fellows documentation anddiscussed the patient with the resident/fellow. I agree with theresident/fellows medicaldecision making as documented in the residents note. Electronic Signatures:Amador Joel ([place]) (Signed 06-Apr-2018 17:31)Authored: Signature/Cosignature/AttestationCo- Signer: Allergies, Assessme nt/Recommendations,Signature/Cosignature/AttestationCarolyn Gonzalez (CHARLEES) (Signed 26-Mar-2018 17:32)Authored: Allergies, Assessment/Recommendations,Signature/Cosignature/Attestation Last Updated: 06-Apr-2018 17:31 by Amador Joel ([place])[facility] Daily Progress Note-Cardiac Surgeryon [id number] mass concService: Cardiac Surgery Subjective Data:DON ELKINS is a 67 year old Male who is Hospital Day # 9.Objective Data: Objective Information: T ZCQLBfL2Zjxcn98.32266660/8195%Date/Time03/26 11: 11: 11: 11: 11:45Range(35.9C - 36.8C ) (67 - 75 ) (17 - 18 ) (124 - 173 )/ (77 - 84 ) (95%- 97% ) Pain with Activity reported at 03/26 15:37: 0Pain at Rest reported at 03/26 15:37: 0 Uvravmg09/8 3:38: Weight in kg (Weight (kg)) 107.211/8 3:38: Weight in lbs ((lbs)) 236.3 Medication: Medications: Continuous Medications 1. Sodium Chloride 0.9% .: 250 mL IntraVenous Scheduled Medications 1. Aspirin Chewable: 81 mg Oral Daily2. Atorvastatin: 40 mg Oral Daily3. Carvedilol: 12.5 mg Oral 2 Times a Day4. Citalopram: 20 mg Oral Daily5. Docusate 50 mg - Senna 8.6 m tablet(s) Oral 2 Times a Day6. Fludrocortisone: 0.05 mg Oral 7. Heparin (Repeat Bolus) Injectable: 4000 unit(s) IntraVenous Push Every 4Evkky9. Hydrocortisone: 10 mg Oral 9. Hydrocortisone: 5 mg Oral 10. Hydrocortisone: 2.5 mg Oral 11. Insulin Glargine (Lantus) Injectable: 30 unit(s) SubCutaneous Every 06Fotrd31. Insulin Lispro (HumaLOG) Injectable: 8 unit(s) SubCutaneous 3 Times aDay Before Meals13. Insulin Lispro Mild Corrective Scale: unit(s) SubCutaneous 3 Times a DayBefore Meals14. Levothyroxine: 150 microgram(s) Oral Daily15. Mupirocin 2%: 0.5 application(s) Each Nostril 2 Times a Day16. Pantoprazole: 40 mg Oral Daily17. Polyethylene Glycol: 17 gram(s) Oral Daily18. rOPINIRole: 6 mg Oral 19. Sodium Chloride 0.65% Nasal [place]: 2 spray(s) Each Nostril 2 Times aDay PRN Medications 1. Dextrose 50% in Water Inje ctable: 25 gram(s) IntraVenous Push Every 51Akwwixx2. Glucagon Injectable: 1 mg IntraMuscular Every15 Minutes Currently Suspended Medications 1. Chlorhexidine Gluconate 4% Topical: 1 application(s) Topical Once Recent Lab Results: Results: I have reviewed these laboratory results: Glucose_POCT Trending View Qparqm16-Lav-2693 12:28:00 26-Mar-2018 07:27:00Glucose-ZABQ031 H 154 H Heparin assay, UFH 26-Mar-2018 [...] Findings are consistent with less than 50% stenosisof the rightICA. Right external carotid artery appears patent with no evidence of stenosis.The right vertebral artery is patent with antegrade flow. No evidence ofhemodynamically significant stenosisin the right subclavian.Left Carotid: Findings are consistent [...] Vessel Vein Mapping [Mar 25 2018 7:19PM] Conclus ion:CONCLUSIONS:Right Lower PVR: No evidence of arterial occlusive [...] and may make absolute Segmental Limb Pressures (BUY BOAT OPERATOR) unreliable.Triphasic flow is noted in the left dorsalis pedis artery, left posteriortibial artery and left common femoral artery. VASC LAB PVR (Arterial Physiologic) BROOKS [Mar 25 2018 7:15PM] Conclusion:CONCLUSIONS:Right Upper Arterial: The right radial artery is patent with triphasicwaveforms.Left Upper Arterial: The leftradial artery is patent with triphasic waveforms. VASC [...] A4C: 17.4cm2LA Area A2C: 14.2 cm2LA Major Paxton A4C: 6.0 cmLA Major Paxton A2C: 4.7 cmLA Volume Index: 15.2 ml/m2RA VOLUME BY A/L METHOD: Normal Ranges:RA Area A4C: 12.8 nv7Q-ZTJD MEASUREMENTS: Normal Ranges:Ao Root: 2.90 cm (2.0-3.7cm)LAs: 3.80 cm (2.7- 4.0cm)AORTA MEASUREMENTS: Normal Ranges:Ao Sinus, d: 3.45 cm (2.1-3.5cm)Ao STJ, d: 2.85 cm (1.7-3.4cm)Asc Ao, d: 3.40 cm (2.1-3.4cm)LV SYSTOLIC FUNCTIONBY 2D PLANIMETRY (MOD): Normal Ranges:EF-A4C View: 59.9 % (>55%)EF-A2C View: 66.3 %EF- Biplane: 63.4 %LV DIASTOLIC FUNCTION: Normal Ranges:MV Peak E: 0.60 m/s (0.7-1.2 m/s)MV Peak A: 0.71 m/s (0.42-0.7 m/s)E/A Ratio: 0.84 (1.0-2.2)MV e' 0.05 m/s (>8.0)MV lateral e'0.05 m/sMV medial e' 0.05 m/sMV A Dur: 148.00 msecE/e' Ratio: 11.92 (<8.0)a' 0.14 m/sMV DT: 261 msec (150-240 msec)PulmV Sys Michele: 51.80 cm/sPulmV Pablo Michele: 29.80 cm/sPulmV S/D Michele: 1.70PulmV A Revs Michele: 31.50 cm/sPulmV A Revs Dur: 116.00 msecMITRAL VALVE: NormalRanges:MV DT: 261 msec (150-240msec)AORTIC VALVE: Normal Ranges:AoV Vmax: 1.02 m/s (<1.7m/s)AoV Peak P.2 mmHg (<20mmHg)LVOT Max Michele: 0.87 m/s (<1.1m/s)LVOT VTI: 17.70 cmRIGHT VENTRICLE:RV 1 3.22 cmRV 2 2.33 cmRV 3 7.96 cmTAPSE: 19.1 mmRV s' 0.13 m/sTRICUSPID VALVE/RVSP: Normal Ranges:IVC Diam: 2.03 cmPULMONIC VALVE: Normal Ranges:PV Max Michele: 1.0 m/s (0.6-0.9m/s)PV Max P.2 mmHgPulmonary Veins:PulmV A Revs Dur: 116.00 msecPulmV A Revs Michele: 31.50 cm/sPulmV Pablo Michele: 29.80 cm/sPulmV S/D Michele: 1.70PulmV Sys Michele: 51.80cm/s Echocardiogram [Mar 19 2018 2:30PM] Impression: 1. No radiographic evidence of acute cardiopulmonary process. Xray Chest 2 View PA + Lateral [Mar 19 2018 2:19PM] Impression: 1. No radiographic evidence of acute cardiopulmonary process. Xray Chest 1 View [Mar 19 2018 9:20AM] Assessment and Plan:Assessment:67 yo WM with no prior history of CAD, who has a past medical history of HTN,HLD, T2DM, [place]'s disease, hypothyroidism, COPD, AKASH on CPAP, prostate spring/p prostatectomy in 2011, and psoriasis who was transferred to [facility] on 03/18 for CABG eval. [place] and dyspnea. He as found to havebilat PEs, wasstarted on Heparin gtt, and transferred to [facility]. He wasfound to have a troponin leak at 2.25. C ardiology was consulted and the patientwas diagnosed with ACS, NSTEMI. He underwent a TTE and cath.He had normal EF,mild AI, and triple vessel CAD so was transferred to [facility] for CABG eval. Cardiac surgery consulted 03/19 [...] surgery immediately if the patient deteriorates clinically Signature/Cosignature/Attestation:Provider/Team Contact Info-Pager Numbercardiac surgery [phone] Electronic Signatures:Alexandra Milligan (PAC) (Signed 26-Mar-2018 16:11)Authored: Service, Subjective Data, Objective Data, Assessment and Plan,Signature/Cosignature/Attestation Last Updated: 26-Mar-2018 16:11 by Alexandra Milligan (PAC)[facility]-Cardiologyon 75-12-7362Enndejx mass concService: Cardiology Subjective Data:DON ELKINS is a 67 year old Male who is Hospital Day # 9. Additional Information:No changes in plan today, awaiting OR Friday. cont heparin gtt. No changes perEndo recs. - no changes Objective Data: Objective Information: T IXKIVjG6Qcxan48.12405647/8195%Date/Time03/26 11: 11: 11: 11: 11:45Range(35.9C - 36.8C ) (67 - 75 ) (17 - 18 ) (124 - 173 )/ (77 - 84 ) (95%- 97% ) Skrbggx48/8 3:38: Weight in kg (Weight (kg)) 107. 3:38: Weight in lbs ((lbs)) 236.3 Physical Exam: Constitutional: Resting in bed, NADHead/Neck: No JVDRespiratory/Thorax: CTABCardiovascular: RRR, S1 Y8Gkljjgfacmdyfvhf: soft, NT/NDExtremities: No LE edemaNeurological: alert and oriented t8Kwlhlxxlmksle: Appropriate mood and behaviorSkin: psoriasis plaque over elbows and knees; otherwise warm and dry Medication: Medications: Continuous Medications 1. Sodium Chloride 0.9% .: 250 mL IntraVenous Scheduled Medications 1. Aspirin Chewable: 81 mg Oral Daily2. Atorvastatin: 40 mg Oral Daily3. Carvedi lol: 12.5 mg Oral 2 Times a Day4. Citalopram: 20 mg Oral Daily5. Docusate 50 mg - Senna 8.6 m tablet(s) Oral 2 Times a Day6. Fludrocortisone: 0.05 mg Oral 7. Heparin (Repeat Bolus) Injectable: 4000 unit(s) IntraVenous Push Every 1Hcujx5. Hydrocortisone: 10 mg Oral 9. Hydrocortisone: 5 mg Oral 10. Hydrocortisone: 2.5 mg Oral 11. Insulin Glargine (Lantus) Injectable: 30 unit(s) SubCutaneous Every 99Nifdm74. Insulin Lispro (HumaLOG) Injectable: 8 unit(s) SubCutaneous 3 Times aDay Before Meals13. Insulin Lispro Mild Corrective Scale: unit(s) SubCutaneous 3 Times a DayBefore Meals14. Levothyroxine: 150 microgram(s) Oral Daily15. Mupirocin 2%: 0.5 application(s) Each Nostril 2 Times a Day16. Pantoprazole: 40 mg Oral Daily17. Polyethylene Glycol: 17 gram(s) Oral Daily18. rOPINIRole: 6 mg Oral 19. Sodium Chloride 0.65% Nasal [place]: 2 spray(s) Each Nostril 2 Times aDay PRN Medications 1. Dextrose 50% in Water Injectable: 25 gram(s) IntraVenous Push Every 57Ddrpgom9. Glucagon Injectable: 1 mg IntraMuscular Every 15 Minutes Currently Suspended Medications 1. Chlorhexidine Gluconate 4% Topical: 1 application(s) Topical OnceRecent Lab Results: Results: I have reviewed these laboratory results: Glucose_POCT Trending View [id number]-Uzw-7805 12:28:00 26-Mar-2018 07:27:00 25-Mar-2018 21:21:00 25-Mar-2018 16:15:00 26-Wvb-532586:19:00 25-Mar-2018 07:47:00Glucose-OILH430 H 154 H 181 H 306 H 291 H 163 H Heparin assay, UFH Trending View Gqbioh16-Rrx-9199 00:39:00 25-Mar-2018 07:31:00Heparin assay, UFH0.4 0.4 Complete Blood Count 26-Mar-2018 00:38:00 ResultValueWhite Blood Cell Count 8.2Nucleated Erythrocyte Count 0.0Red Blood Cell Count 4.36 LHGB 13.5HCT 39.6 LMCV 91MCHC 34.1PLT 211RDW-CV 12.9 Renal Function Panel 26-Mar-2018 00:38:00 ResultValueGlucose, Serum 153 HNA 138K 4.3CL 102Bicarbonate, Serum 24Anion Gap, Nwlvu19LQM 22CREAT 1.40 HGFR-Non 50 AGFR- 61Calcium, Serum 9.3Phosphorus, Serum 4.8ALB 3.9 Radiology Results: Results: Conclusion:CONCLUSIONS:Right Upper PVR: Baseline indices less than 0.80 and waveforms appear abnormal.Clinical correlation is advised. 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 VASC LAB PVR (Arterial Physiologic) BROOKS [Mar 25 2018 7:15PM] Assessment and Plan:Assessment:67 yo M with HTN, DLD, T2DM, Addisson's, GERD, prostate ca s/p prostatectomy [id number], hypothyroidism, psoriasis, and most recently diagnosed with a PE andmultivessel CAD transferred to cardiology at [facility] from [facility] 03/18 for CABG eval. Multiple PEs- addison. Segmental and subsegmental PE onCT- Repeat TTE --> No Right dilation or strain- 2V CXR --> No radiographic evidence of acute c ardiopulmonary process.- Appreciate Pulmonary assistance- per pulm NO [...] uploaded: 03/16 at [facility] LM: 10-20%, LAD prox: 30%, LAD mid:95%, Diag 3rd: 99%, RCA: 85 %, PLV: 50%, Circ: 95%- Plan for CABG with Dr. Gaston on 03/31 s/p recent root canal- 03/19 orthop antogram: suspected periapical abscess of R maxillary premolar- dental consult T2DM- Holding home Metformin- SSI and hypoglycemia protocol- A1C 7.9%- BS 163- 306 over past 24 hours- 03/22 Lantus 20 units x1- 03/24 Increase Lantus to 25 units and add Lispro 6 units before meals- cont Lantus 30 units and Lispro 8 units TID Brigida's disease- 03/22 Reduce fludrocortisone to 0.05 mg MWFSun- 03/20 Reduce hydrocortisone to 10mg/5mg/2.5mg- 03/23 While NPO: Hydrocortisone 30mg/10mg/5mg- 03/24 Back to Hydrocortisone 10mg/5mg/2.5mg GERD- Continue home PPI HTN- Holding LAUREN in periop period- 03/20 Increase Carvedilol to 12.5mg BID- SBP 120s-140s over past 24 hours DLD- Atorva 40mg- lipids 155/44/82/141 Hypothyr oidismTSH 2.51- Continue home levothyroxine TIFFANI- MICHELLE- Adm Creatinine 1.42- Today 1.40 [1.52, 1.24, 1.53, 1.66, 1.38, 1.36] GI ppx: on PPICode status: Full Dispo:pending CABG Friday Seen and discussedwith Dr. Arteaga Signature/Cosignature/Attestation:Provider/Team Contact Info-Pager [phone] Only - Shared Visit with Advanced Practice ProviderThis is a sharedvisit. I have reviewed theAdvanced Practice Providers encounter note,approve the Advanced Practice Providers documentation, and provide thefollowing additional information from my personal encounter.Comments/ Additional FindingsContinue heparin gtt.Await CABG next week. Electronic Signatures:Leonel Arteaga) (Signed 28-Mar-2018 19:47)Authored: Signature/Cosignature/AttestationCo-Signer: Service, Subjective Data, Objective Data, Assessment and Plan,Signature/Cosignature/AttestationJamieKate (HEALTH AND SAFETY TECH- IRON WORKER APPRENTICE) (Signed 26-Mar-2018 16:20)Authored: Service, Subjective Data, Objective Data, Assessment and Plan,Signature/Cosignature/Attestation Last Updated: 28-Mar-2018 19:47 by Leonel Arteaga)[facility]Daily [facility] Note-Endocrinologyon [id number] mass concService: Endocrinology Subjective Data:DON ELKINS is a 67 year old Male who is Hospital Day # 9. Objective Data: Objective Information:T KVEMPiF6Ykzfy84.13583925/8195%Date/Time03/26 11: 11: 11: 11: 11:45Range(35.9C - 36.8C ) (67 - 75 ) (17 - 18 ) (124 - 173 )/ (77 - 84 ) (95%- 97% ) Pain with Activity reported at 03/26 7:45: 0Pain at Rest reported at 03/26 7:45: 0 Physical Exam: Constitutional: Well developed, awake/alert/oriented x3, no distress, alert andcooperative, Patel facies, central obesity, supraclavicular fat pasEyes: PERRL, EOMI, clear scleraRespiratory/Thorax:Diffuse decrease air entry bilaterallyCardiovascular: S1-S2 regular, no [...] psoriasis who was transferredto [facility] service at [facility] from [facility] on 03/18 forWALTER marshall.Endocrine consulted fr evaluation of [place] disease and treatment periop Patient was on supra- therapeutic dose of HCT 20-0-20, fludrocortisone 0.1 ,mgdailyPatient has uncontrolled HTN and uncontrolled BSMost likely tomorrow (03/23) IVC filter placement Recommendations:1. [place]'s Disease-- Fludrocortisone 0.05 mg 4 times weekly ( and friday)-- Continue Hydrocortisone to 10-5-2.5 mg at 3wl-06hr-8tk DAILY as of tomorrow-On the day of the surgery (CABG) please give Hydrocortisone 30 mg by mouthonce at 5 am , check thecortisol level at 7 am , then continue Hydrocortisoneas 25 mg IV q6hrs thereafter as of 8 am. Please keep endo team informed aboutthe date of the surgery please. 2. T2DM No changes-- continue lantus 30 units once daily And Lispro 8 units TIDAC-- Continue ISS 2 units for every 50 above 150-- POCT ACand qHs-- Hypoglycemia protocol--Diabetic diet--will follow Please page with questions [phone] Patient seen and examined, plan discussed with Dr Quevedo Signature/Cosignature/Attestation:Attending Akbar Carrasco saw and evaluated the patient. I personally obtainedthe judge and critical portions of the history and physical exam or wasphysically present for judge and critical portions performed by theresident/fellow. I reviewed the resident/fellows documentation and discussedthe patient with the resident /fellow. I agree with the resident/fellowsmedical decision making as documented in the residents note.I personally evaluated the patient (as noted in the above attestation) [id number] Electronic Signatures:Starr Quevedo) (Signed 28-Mar-2018 09:07)Authored: Service, Signature/Cosignatur e/AttestationCo-Signer: Subjective Data, Objective Data, Assessment and Plan,Signature/Cosignature/AttestationHasmukh Stephenson (Resident)) (Signed 26-Mar-2018 11:56)Authored: Subjective Data, Objective Data, Assessment and Plan,Signature/Cosignature/Attestation Last Updated: 28-Mar-2018 09:07by Starr Quevedo)[facility] ClinicGLUCOSE-POCTon 03-26-2018 Glucose mass klrs106 mg/aCDaoc29 - 99[facility] RiverComment on above:Performed By: #### GLUPO ####[id number] [place] [address] Glucose mass armo785 mg/eREgbu6122 Wilson StreetComment on above:Performed By: #### GLUPO ####[id number] [place] [address] Glucose mass vybx760 mg/qCDzjs0722 Wilson StreetComment on above:Performed By: #### GLUPO ####[id number] [place] [address] Glucose mass ijwf542 mg/wHYoeb0022 Wilson StreetComment on above:Performed By: #### GLUPO ####[id number] [place] [address] Glucose mass ufdw453 mg/aZBmkl0622 Wilson StreetComment on above:Performed By: #### GLUPO ####[id number] [place] [address] HEPARIN ASSAY,UFHon 68-16-8365SAWRUBV ASSAY,UFH0.3 IU/mLNCook HospitalComment on above:Result Comment: The therapeutic reference range for UFH may be either 0.3-0.6 IU/mL or 0.3-0.7 IU/mL based on the clinical setting for anticoagulant therapy and the associated nomogram used. For heparin dosing guidelines based on clinical scenario and Heparin Assay results, please refer to local Pharmacy and the [facility] Guidelines for Anticoagulation therapy available on the [facility] intranet at:[email or web address]/Pharmacy/Pages/[facility]_Guide lines_for_Anticoagu.aspxPerformed By: #### HAUF ####[id number], [place] [address]HPUXZTZ ASSAY,UFH0.4 IU/mLNCook HospitalComment on above:Result Comment: The therapeutic reference range for UFH may be either 0.3-0.6 IU/mL or 0.3-0.7 IU/mL based on the clinical setting for anticoagulant therapy and the associated nomogram used. For heparin dosing guidelines based on clinical scenario and Heparin Assay results, please refer to local Pharmacy and the [facility] Guidelines for Anticoagulation therapy available on the [facility] intranet at:[email or web address]/Pharmacy/Pages/[facility]_Guide lines_for_Anticoagu.aspxPerformed By: #### HAUF ####[id number], [place] [address]AJDXXAPOHsz 97-47-1018Xtaydhvii Auto #/vol (Bld)ORDER RECDNormalHealthSouth - [facility] Hospital of Toms RiverComment on above:Result Comment: If this patient is Rh Negative and if the Plateletproduct transfused is Rh Positive, review the useof WinRho Prophylaxis for this patient.Performed By: #### PLT ####[id number], [place] [address]HUIBB FUNCTION PANELon 03-26-2018 Albumin mass conc4.0 g/dLNormal3.4 - 5.0[facility] Toms RiverComment on above:Performed By: #### RENAL ####[id number] [place] [address] Anion gap 3 molar conc16 mmol/MXasrqf18 - 20[facility] Toms RiverComment on above:Performed By: #### RENAL ####[id number] [place] [address] Calcium mass conc9.4 mg/dLNormal8.6 - 10.6[facility] Toms RiverComment on above:Performed By: #### RENAL ####[id number] [place] [address] Chloride molar pjoj467 mmol/JShuolc72 - 107[facility] Toms RiverComment on above:Performed By: #### RENAL ####[id number] [place] [address] Creatinine mass conc1.46 mg/dLHigh0.50 - 1.30[facility] Toms RiverComment on above:Performed By: #### RENAL ####[id number] [place] [address] GFR- AM.58 mL/min/1.60x1Ygajyonj>60[facility] Toms RiverComment on above:Result Comment: CALCULATIONS OF ESTIMATED GFR ARE PERFORMED USING THE MDRD STUDY EQUATION FOR THE IDMS-TRACEABLE CREATININE METHODS. CLIN CHEM 2007;53:766-72Performed By: #### RENAL ####[id number], [place] [address]KWK-AVK AM.48 mL/min/1.97s4Pkunxwwy>60[facility] River Comment on above:Performed By: #### RENAL ####[id number], [place] [address]Wcjkmna mass wlvs186 mg/gWRtpv06 - 99[facility] RiverComment on above:Performed By: #### RENAL ####[id number] [place] [address] HCO3 molar conc (Bld)25 mmol/BQbqfbf83 - 32[facility] Toms RiverComment on above:Performed By: #### RENAL ####[id number] [place] [address] Phosphate mass conc4.2 mg/dLNormal2.5 - 4.9[facility] Toms RiverComment on above:Result Comment: The performance characteristics of phosphorus testing in heparinized plasma have been validated by the individual laboratory site where testing is performed. Testing on heparinizedplasma is not approved by the FDA; however, such approval is not necessary.Performed By: #### RENAL ####[id number], [place] [address]Xwdicunrg molar conc4.6 mmol/L Normal3.5 - 5.3[facility] Toms RiverComment on above:Performed By: #### RENAL ####[id number], [place] [address]Yxgwlh molar nbrs144 mmol/L Xxhnpz570 - 145[facility]oms RiverComment on above:Performed By: #### RENAL ####[id number], [place] [address]Ahsx nitrogen mass conc21 mg/dLNormal6 - 23[facility] RiverComment on above:Performed By: #### RENAL ####[id number], [place] [address]Clxlsba mass conc3.9 g/dL Normal3.4 - 5.0[facility] Toms RiverComment on above:Performed By: #### RENAL ####[id number], [place] [address]Fyncf gap 3 molar conc16 mmol/CPvnmso80 - 20[facility] Toms RiverComment on above:Performed By: #### RENAL ####[id number], [place] [address]Nhqahfk mass conc9.3 mg/dLNormal8.6 - 10.6[facility]oms RiverComment on above:Performed By: #### RENAL ####[id number], [place] [address]Vuwvnhvo molar nfcy623 mmol/LTfbxes66 - 107[facility] Toms RiverComment on above:Performed By: #### RENAL ####[id number], [place] [address]Fvdfddppzv mass conc1.40 mg/dLHigh0.50 - 1.30[facility] Toms RiverComment on above:Performed By: #### RENAL ####[id number], [place] [address]TNT-GZKOXRW AM.61 mL/min/1.65m5Kgquxo>60[facility]oms RiverComment on above:Result Comment: CALCULATIONS OF ESTIMATED GFR ARE PERFORMED USING THE MDRD STUDY EQUATION FOR THE IDMS-TRACEABLE CREATININE METHODS. CLIN CHEM 2007;53:766-72 Performed By: #### RENAL ####[id number], [place] [address]LVW-XGU AM.50 mL/min/1.17o4Mhydsjkp>60[facility] RiverComment on above:Performed By: #### RENAL ####[id number] [place] [address] Glucose mass vqcj182 mg/jVRpfc44 - 99[facility] RiverComment on above:Performed By: #### RENAL ####[id number], [place] [address]HKF5 molar conc (Bld)24 mmol/JFsjrni24 - 32[facility] RiverComment on above:Performed By: #### RENAL ####[id number] [place] [address] Phosphate mass conc4.8 mg/dLNormal2.5 - 4.9[facility] T[facility] RiverComment on above:Result Comment: The performance characteristics of phosphorus testing in heparinized plasma have been validated by the individual laboratory site where testing is performed. Testing on heparinizedplasma is not approved by the FDA; however, such approval is not necessary.Performed By: #### RENAL ####[id number], [place] [address]Xpfflqwcs molar conc4.3 mmol/L Normal3.5 - 5.3[facility] Toms RiverComment on above:Performed By: #### RENAL ####[id number], [place] [address]Luwdzi molar kkus140 mmol/L Eeschz183 - 145[facility] RiverComment on above:Performed By: #### RENAL ####[id number], [place] [address]Ayxk nitrogen mass conc22 mg/dLNormal6 - 23[facility] RiverComment on above:Performed By: #### RENAL ####[id number], [place] [address]OEXCVFC-NYTLOFUBNALS RED CELLSon 96-97-4619DCCEOAA-LEUKOREDUCED RED CELLSORDER RECDNormalHealth[facility]oms RiverComment on above:Performed By: #### OLPC ####[id number], [place] [address]DXMLE/MRSA SCREENon 24-41-8411AXSQK/MRSA SCREENTEST STAPH/MRSA SCREEN WAS CANCELLED, 03/26/2018 17:39 ?Cancel Reason: Discontinued.PATIENT: DON ELKINS LOCATION: [facility] N78GJUR#: [id number] : 50 AGE: SEX: M ORDERED BY: MONI MILLIGAN: ANTERIOR NARES COLLECTED: 03/26/18 17:39ANTIBIOTICS AT JIMENA.: RECEIVED : SITE: NARES R E S U L T S STAPH/MRSA SCREEN CANCELLED 03/26/18 17:55 NormalHealth[facility] Toms RiverComment on above:Performed By: #### STAPH ####[id number], [place] [address]SCFae 98-92-3133Rjuiideafqe distribution width Auto Ratio (RBC)13.0 %Vkpsjl39.5 - 14.5[facility]oms RiverComment on above:Performed By: #### GLUPO ####[id number] [address]Hematocrit Auto Volume Fraction (Bld)38.4 %Low41.0 - 52.0 [facility] RiverComment on above:Performed By: #### GLUPO ####[id number] [address]Hemoglobin mass conc (Bld)12.9 g/dL Low13.5 - 17.5[facility] RiverComment on above:Performed By: #### GLUPO ####[id number] [address]MCHC Auto mass conc (RBC)33.6 g/sPDgvvza88.0 - 36.0[facility] RiverComment on above:Performed By: #### GLUPO ####[id number], [place] [address]IWD Auto Entitic volume (RBC)94 uKKxyuzr54 - 100[facility] RiverComment on above:Performed By: #### GLUPO ####[id number], [place] [address]Hiwivgdqb RBC/100 WBC Ratio (Bld)0.0 /100 WBCNormal0.0-0.0[facility] RiverComment on above:Performed By: #### GLUPO ####[id number] [place] [address] Platelets Auto #/vol (Bld)219 10*3/bGEkpjuo094 - 450[facility] Comment on above:Performed By: #### GLUPO ####[id number] [address]RBC Auto #/vol (Bld)4.10 x10E12/LLow4.50 - 5.90[facility] RiverComment on above:Performed By: #### GLUPO ####[id number], [place] [address]HIB Auto #/vol (Bld)8.2 10*3/uLNormal4.4 - 11.3[facility] RiverComment on above:Performed By: #### GLUPO ####[id number], [place] [address]Haspv Progress Note-Cardiologyon 19-74-1454Ownoyoj mass concService: Cardiology Subjective Data:DON ELKINS is a 67 year old Male who is Hospital Day # 8. Additional Information:BP remains of 130s-150s/60-80s, BS improved to 160s this AM - c/w Heparin gtt- c/w Lantus 25 units daily and Lispro 6 units before meals- Plan for CABG next week Objective Data: Objective Information:T NJJDPwJ0Hzavb46.69501800/8497%Date/Time03/25 8: 8: 8: 8::13Range(35.8C - 36.8C ) (68 - 86 ) (16 - 18 ) (128 - 166 )/ (80 - 85 ) (96%- 98% ) Pain with Activity reported at 03/25 0:10: 0Pain at Rest reported at 03/25 0:10: 0 Fghwkkc32/7 3:46: Weight in kg (Weight (kg)) 107.911 3:46: Weight in lbs ((lbs)) 237.8 Physical Exam: Constitutional: Resting in bed, NADHead/Neck: No JVDRespiratory/Thorax: CTABCardiovascular: RRR, S1 G7Higtfevwwjkxeunl: soft, NT/NDExtremities: No edemaNeurological: alert and oriented x2Oircmjmrmthco: Appropriate mood and behaviorSkin: psoriasis plaque over elbows and knees; otherwise warm and dry; rightgroin drsg intact Medica tion: Medications: Continuous Medications 1. Sodium Chloride 0.9% .: 250 mL IntraVenous Scheduled Medications 1. Aspirin Chewable: 81mg Oral Daily2. Atorvastatin: 40 mg Oral Daily3. Carvedilol: 12.5 mg Oral 2 Times a Day4. Citalopram: 20 mg Oral Daily5. Docusate 50 mg - Senna 8.6 m tablet(s) Oral 2 Times a Day6. Fludrocortisone: 0.05 mg Oral 7. Heparin (Repeat Bolus) Injectable: 4000 unit(s) IntraVenous Push Every 7Uktgd4. Hydrocortisone: 10 mg Oral 9. Hydrocortisone: 5 mg Oral 10. Hydrocortisone: 2.5 mg Oral 11. Insulin Gl argine (Lantus) Injectable: 25 unit(s) SubCutaneous Every 90Tknyp16. Insulin Lispro (HumaLOG) Injectable: 6 unit(s) SubCutaneous 3 Times aDay Before Meals13. Insulin Lispro Mild Corrective Scale: unit(s) SubCutaneous 3 Times a DayBefore Meals14. Levothyroxine: 150 microgram(s) Oral Daily15. Pantoprazole: 40 mg Oral Daily16. Polyethylene Glycol: 17 gram(s) Oral Daily17. rOPINIRole: 6 mg Oral 18. Sodium Chloride 0.65% Nasal [place]: 2 spray(s) Each Nostril 2 Times aDay PRN Medications 1. Dextrose 50% in Water Injectable: 25 gram(s) IntraVenous Push Every 04Cjnnxbr1. Glucagon Injectable: 1 mg IntraMuscular Every 15 Minutes Currently Suspended Medications --------- 1. Chlorhexidine Gluconate 4% Topical: 1 application(s) Topical Once RecentLab Results: Results: I have reviewed these laboratory results: Glucose_POCT Trending View Avmegd14-Lry-0461 11:19:00 25-Mar-2018 07:47:00Glucose-YKMU255 H 163 H Heparin assay, [facility] 25-Mar-2018 07:31:00 ResultValueHeparin assay, UFH 0.4 Complete [...] T2DM, Addisson's, GERD, prostate ca s/p prostatectomy [id number], hypothyroidism, psoriasis, and most recently diagnosed with a PE andmultivessel CAD transferred to medicine at [facility] from [facility] on03/18 for CABG eval. Multiple PEs- [...] and increase Lispro to 8 units TID [place]'s disease- 03/22 Reduce fludrocortisone to 0.05 mg MWFSun-03/20 Reduce hydrocortisone to 10mg/5mg/2.5mg- 03/23 While NPO: Hydrocortisone 30mg/10mg/5mg- 03/24 Back to Hydrocortisone 10mg/5mg/2.5mg GERD- Continue home PPI HTN- Holding LAUREN- 03/20 Increase Carvedilol to 12.5mg BID- 128/82 - 166/85 over past 24 hours DLD- Atorva 40mg- lipids 155/44/82/141 HypothyroidismTSH 2.51- Continue home levothyroxine TIFFANI- MICHELLE- Adm Creatinine 1.42- Today 1.52 [1.24, 1.53, 1.66, 1.38, 1.36] GI ppx: on PPICode status: Full Signature/Cosignature/Attestation:Attending Only - Shared Visit with Advanced Practice ProviderThis is a sharedvisit. I have reviewed the Advanced Practice Providers encounter note,approve the Advanced Practice Providers documentation, and provide thefollowing additional information from my personal encounter.Comments/ Additional FindingsContinue anticoagulation for PE.No angina overnight.Await CABG on Friday. Electronic Signatures:Vito Patino(HEALTH AND SAFETY TECH-IRON WORKER APPRENTICE) (Signed 25-Mar-2018 16:22)Authored: Service, Subjective Data, Objective Data, Assessmentand Plan,Signature/Cosignature/AttestationGinLeonel telles) (Signed 26-Mar-2018 11:18)Authored: Signature/Cosignature/AttestationCo- Signer: Subjective Data, Objective Data, Assessment and Plan,Signature/Cosignature/Attestation Last Updated: 26-Mar-2018 11:18 by Leonel Arteaga)[facility] ClinicDaily Progress Note-Endocrinologyon 28-44-8203Fyyxnjp mass concConsult Type: subsequent visit/care Service: Endocrinology Subjective Data:DON ELKINS is a 67 yearold Male who is Hospital Day # 8. Objective Data: Objective Information:T NULMRfJ7Npexa97.30123793/7997%Date/Time03/25 16:0011/7 16: 16: 16: 16:00Range(35.8C - 36.2C ) (68 - 78 ) (17- 18 ) (128 - 166 )/ (79 - 86 ) (96%- 97% ) Pain with Activity reported at 03/25 8:00: 0Pain at Restreported at 03/25 8:00: 0 Uwzsqop40/7 3:46: Weight in kg (Weight (kg)) 107.911 3:46: Weight in lbs((lbs)) 237.8 Physical Exam: Constitutional: Well developed, awake/alert/oriented x3, no distress, alert andcooperative, Patel facies, central obesity, supraclavicular fat pasEyes: PERRL, EOMI, clear s cleraRespiratory/Thorax: Diffuse decrease air entry bilaterallyCardiovascular: S1-S2 regular, no murmursGastrointestinal: Nondistended, soft, non-tender, +BS, no straiePsychological: Appropriate moodand behaviorSkin: warm and dry, acanthosis nigricans Recent Lab Results: Results: I have reviewed these laboratory results: Glucose_POCT Trending View Gztjwj29-Wfc-3593 12:46:00 24-Mar-2018 11:46:00 24-Mar-2018 06:54:00 23-Mar-2018 20:50:00 23-Mar-2018 15:44:00 23-Mar-2018 11:37:00 72-Lav-784436:37:00 22-Mar-2018 21:18:00Glucose- NYWU919 H 262 H 217 H 290 H 228 H 226 H 189H 275 H Basic Metabolic Panel 24-Mar-2018 03:30:00 ResultValueGlucose, Serum 358 HNA 134 LK 4.2CL 103Bicarbonate, Serum 21Anion Gap, Serum 14BUN 26 HCREAT 1.24GFR-Non 58 AGFR- 70Calcium, Serum9.1 Renal Function Panel Trending View Zweohj93-Ilg-6768 20:34:00 22-Mar-2018 19:24:00Glucose, Nalii512 H 226 HFC053 138K4.2 4.3YB162 102Bicarbonate, Serum24 25Anion Gap, Serum14 86IZT30 24 HCREAT1.23 1.53 HGFR-Non Krjyggzu68 A 46 AGFR- Tssxmpfd38 56 ACalcium, Serum9.2 9.0Phosphorus,Serum3.9 4.0ALB3.7 3.7 Assessment and Plan:Assessment: Mr. Elkins is a 67 yo WM with no known historyof CAD, who has a past medicalhistory of HTN, HLD, T2DM, Brigida's disease, hypothyroidism, COPD, AKASH onCPAP, prostate ca s/p prostatectomy in 2011, and psoriasis who was [facility] on [facility] forCABG eval.Endocrine consulted fr evaluation of [place] disease and treatment periop Patient was on supra-therapeutic dose of HCT 20-0-20 , flu drocortisone 0.1 ,mgdailyPatient has uncontrolled HTN and uncontrolled BSMost likely tomorrow (03/23) IVC filter placement Recommendations:1. Cincinnati's Disease-- Fludrocortisone 0.05 mg 4 times weekly( and friday)-- Continue Hydrocortisone to 10-5-2.5 mg at 8zl-09zq-1im DAILY as of tomorrow -On the day [...] protocol--Diabetic diet--will follow Please page with questions [phone] Patient seen and examined, plan discussed with Dr Quevedo Signature/Cosignature/Attestation:Attending JordanI saw and evaluated the patient. I personally obtainedthe judge and critical portions of the history and physical exam or wasphysically present for judge and critical portions performed by theresident/fellow. I reviewed the resident/fellows documentation and discussedthe patient with the resident/fellow. I agree with the resident/fellowsmedical decision making as documented in the residents note.I personallyevaluated the patient (as noted in the above attestation) fg15-Ulb-1239 Electronic Signatures:Starr Quevedo) (Signed 28-Mar-2018 09:06)Authored: Signature/Cosignature/AttestationCo-Signer:Service, Subjective Data, Objective Data, Assessment and Plan,Signature/Cosignature/AttestationHasmukh Stephenson (Resident)) (Signed 25-Mar-2018 19:27)Authored: Service, Subjective Data, Objective Data, Assessment and Plan,Signature/Cosignature/Attestation Last Updated: 28-Mar-2018 09:06 by Starr Quevedo)[facility] ClinicGLUCOSE-POCTon 16-81-4658Qfcvxjm mass ronj032 mg/iVVpjm[address] Comment on above:Performed By: #### GLUPO ####[id number], [place] [address]Ruhdadj mass hlfe750 mg/bOWprq7822 Wilson StreetComment on above:Performed By: #### GLUPO ####[id number] [place] [address] Glucose mass bfes103 mg/fMShcb7722 Wilson StreetComment on above:Performed By: #### GLUPO ####[id number] [place] [address] Glucose mass khos951 mg/iFCfya6122 Wilson StreetComment on above:Performed By: #### GLUPO ####[id number] [place] [address] HEPARIN ASSAY,UFHon 49-26-9168DPWTGLF ASSAY,UFH0.4 IU/mLNCook HospitalComment on above:Result Comment: The therapeutic reference range for UFH may be either 0.3-0.6 IU/mL or 0.3-0.7 IU/mL based on the clinical setting for anticoagulant therapy and the associated nomogram used. For heparin dosing guidelines based on clinical scenario and Heparin Assay results, please refer to local Pharmacy and the [facility] Guidelines for Anticoagulation therapy available on the [facility] intranet at:[email or web address]_Guide lines_[email or web address].aspxPerformed By: #### GLUPO ####[id number], [place] [address]RUETH FUNCTION PANELon 95-81-7650Neahvxu mass conc3.8 g/dLNormal3.4 - 5.0[facility] RiverComment on above:Performed By: #### GLUPO ####[id number], [place] [address]Rohus gap 3 molar conc12 mmol/NLnapla47 - 20[facility] RiverComment on above:Performed By: #### GLUPO ####[id number], [place] [address]Ukfheqq mass conc9.3 mg/dLNormal8.6 - 10.6[facility] T[facility] RiverComment on above:Performed By: #### GLUPO ####[id number], [place] [address]Liwwemjf molar elhx289 mmol/HAudbis06 - 107[facility] Toms RiverComment on above:Performed By: #### GLUPO ####[id number], [place] [address]Qvvpidvblb mass conc1.52 mg/dLHigh0.50 - 1.30[facility] T[facility] RiverComment on above:Performed By: #### GLUPO ####[id number], [place] [address]CGO-EXSWDYI AM.56 mL/min/1.20w3Ndzmzlty>60[facility] Toms RiverComment on above:Result Comment: CALCULATIONS OF ESTIMATED GFR ARE PERFORMED USING THE MDRD STUDY EQUATION FOR THE IDMS-TRACEABLE CREATININE METHODS. CLIN CHEM 2007;53:766-72 Performed By: #### GLUPO ####[id number], [place] [address]DME-MND AM.46 mL/min/1.46y5Hgghcgtq>60[facility] T[facility] RiverComment on above:Performed By: #### GLUPO ####[id number] [place] [address] Glucose mass zihe667 mg/bFSdgr78 - 99[facility] T[facility] RiverComment on above:Performed By: #### GLUPO ####[id number], [place] [address]SQF1 molar conc (Bld)27 mmol/RPgegjb19 - 32[facility] T[facility] RiverComment on above:Performed By: #### GLUPO ####[id number] [place] [address] Phosphate mass conc4.4 mg/dLNormal2.5 - 4.9[facility] T[facility] RiverComment on above:Result Comment: The performance characteristics of phosphorus testing in heparinized plasma have been validated by the individual laboratory site where testing is performed. Testing on heparinizedplasma is not approved by the FDA; however, such approval is not necessary.Performed By: #### GLUPO ####[id number], [place] [address]Egglvcbbk molar conc4.4 mmol/L Normal3.5 - 5.3[facility] Toms RiverComment on above:Performed By: #### GLUPO ####[id number], [place] [address]Hudphr molar xudb047 mmol/L Makplw328 - 145[facility] Toms RiverComment on above:Performed By: #### GLUPO ####[id number], [place] [address]Ijin nitrogen mass conc26 mg/dLHigh6 - 23[facility] RiverComment on above:Performed By: #### GLUPO ####[id number], [place] [address]GGQNH METABOLIC PANELon 02-60-4072Nsglr gap 3 molar conc14 mmol/XMhmqol97 - 20[facility] RiverComment on above:Performed By: #### BMP ####[id number], [place] [address]Hnvgafg mass conc9.1 mg/dLNormal8.6 - 10.6[facility] T[facility] RiverComment on above:Performed By: #### BMP ####[id number], [place] [address]Lghuyflo molar kbcp386 mmol/WMwgowr87 - 107[facility] Toms RiverComment on above:Performed By: #### BMP ####[id number], [place] [address]Ekfhjdyaxc mass conc1.24 mg/dLNormal0.50 - 1.30[facility] T[facility] RiverComment on above:Performed By: #### BMP ####[id number], [place] [address]WOR-HTEIBZO AM.70 mL/min/1.04e9Tklvmo>60[facility] RiverComment on above:Result Comment: CALCULATIONS OF ESTIMATED GFR ARE PERFORMED USING THE MDRD STUDY EQUATION FOR THE IDMS-TRACEABLE CREATININE METHODS. CLIN CHEM 2007;53:766-72Performed By: #### BMP ####[id number], [place] [address]SXP-QAS AM.58 mL/min/1.73m2 Abnormal>60[facility] Toms RiverComment on above:Performed By: #### BMP ####[id number], [place] [address]Ghhchdf mass ztxj706 mg/dUGhkl01 - 99[facility] T[facility] RiverComment on above:Performed By: #### BMP ####[id number], [place] [address]PWK9 molar conc (Bld)21 mmol/L Lioyvg74 - 32[facility] Toms RiverComment on above:Performed By: #### BMP ####[id number], [place] [address]Whihtsuin molar conc4.2 mmol/L Normal3.5 - 5.3[facility] Toms RiverComment on above:Performed By: #### BMP ####[id number], [place] [address]Himcio molar ewcq408 mmol/LLow 136 - 145[facility] Toms RiverComment on above:Performed By: #### BMP ####[id number], [place] [address]Wzqr nitrogen mass conc26 mg/dLHigh 6 - 23[facility] Medical CenterComment on above:Performed By: #### BMP ####[id number], [place] [address]XBOdg 48-18-2538Sudckperarw distribution width Auto Ratio (RBC)12.9 %Ycjmhl46.5 - 14.5[facility] Toms RiverComment on above:Performed By: #### CBC ####[id number], [place] [address]Mwchqslsfc Auto Volume Fraction (Bld)40.0 %Low41.0 - 52.0 [facility] T[facility] RiverComment on above:Performed By: #### CBC ####[id number], [place] [address]Jsbtkecseg mass conc (Bld)13.4 g/dL Low13.5 - 17.5[facility] Toms RiverComment on above:Performed By: #### CBC ####[id number] [address]MCHC Auto mass conc (RBC)33.5 g/dL Pbsotq66.0 - 36.0[facility] T[facility] RiverComment on above:Performed By: #### CBC ####[id number], [place] [address]IQC Auto Entitic volume (RBC)92 wUObywkj26 - 100[facility] T[facility] RiverComment on above:Performed By: #### CBC ####[id number], [place] [address]Zieltline RBC/100 WBC Ratio (Bld)0.0 /100 WBCNormal0.0-0.0[facility] T[facility] RiverComment on above: Performed By: #### CBC ####[id number], [place] [address]Vovsjxfdl Auto #/vol (Bld)216 10*3/vVUhsout160 - 450[facility] T[facility] RiverComment on above:Performed By: #### CBC ####[id number], [place] [address]DGI Auto #/vol (Bld)4.33 x10E12/LLow4.50 - 5.90[facility] RiverComment on above:Performed By: #### CBC ####[id number], [place] [address]GAR Auto #/vol (Bld)7.6 10*3/uLNormal4.4 - 11.3[facility] T[facility] RiverComment on above:Performed By: #### CBC ####[id number] [place] [address] Erythrocyte distribution width Auto Ratio (RBC)12.9 %Iqcnbz59.5 - 14.5[facility] T[facility] RiverComment on above:Performed By: #### CBC ####[id number], [place] [address]Zynfphnick Auto Volume Fraction (Bld)39.8 %Low41.0 - 52.0[facility] T[facility] RiverComment on above:Performed By: #### CBC ####[id number], [place] [address]Tnhoguwdri mass conc (Bld)13.6 g/dL Obkxgw83.5 - 17.5[facility] T[facility] RiverComment on above:Performed By: #### CBC ####[id number], [place] [address]PSWT Auto mass conc (RBC)34.2 g/gFBiczgh23.0 - 36.0[facility] RiverComment on above:Performed By: #### CBC ####[id number], [place] [address]NAH Auto Entitic volume (RBC)92 uTEjncyb76 - 100[facility] T[facility] RiverComment on above:Performed By: #### CBC ####[id number], [place] [address]Nrrxrgmub RBC/100 WBC Ratio (Bld)0.0 /100 WBCNormal0.0-0.0[facility] T[facility] RiverComment on above: Performed By: #### CBC ####[id number], [place] [address]Gxeuwbsdt Auto #/vol (Bld)216 10*3/fEIetvgc056 - 450[facility] T[facility] RiverComment on above:Performed By: #### CBC ####[id number], [place] [address]FPZ Auto #/vol (Bld)4.34 x10E12/LLow4.50 - 5.90[facility] T[facility] RiverComment on above:Performed By: #### CBC ####[id number], [place] [address]RGN Auto #/vol (Bld)7.5 10*3/uLNormal4.4 - 11.3[facility] Toms RiverComment on above:Performed By: #### CBC ####[id number], [place] [address]Xrvdr Progress Note-Cardiologyon 86-91-7660Rspwksh mass concService: Cardiology Subjective Data:DON ELKINS is a 67 year old Male who is Hospital Day # 7. Addit ional Information:s/p IVC Filter placement yesterday, SBP improved to 130s-150s/60-80s, BSremain elevated 200s - c/w Heparin gtt- Increase Lantus to 25 units- Add Lispro 6 units before meals- Plan for CABG next week Objective Data: Objective Information:T XMEBPjS0Ycrfj52.68917715/8496%Date/Time03/24 7: 7: 7: 8: 7:44Range(35.6C - 37C ) (67 - 85 ) (18 - 22 ) (122 - 158 )/ (68- 84 ) (93% -96% )Highest temp of 37 C was recorded at 03/23 11:00 Pain with Activity reported at 03/24 3:34: 0Pain at Rest reported at 03/24 3:34: 0 Afzdpnt68/6 3:33: Weight in kg (Weight (kg)) 108.311 3:33: Weight in lbs ((lbs)) 238.8 Physical Exam: Constitutional: Resting in bed, NADHead/Neck: NoJVDRespiratory/Thorax: CTABCardiovascular: RRR, S1 R3Rzklqdzruudaagrr: soft, NT/NDExtremities: No edemaNeurological: alert and oriented w0Atxmqyygtpobl: Appropriate mood and behaviorSkin: psoriasis plaque over elbows and knees; otherwise warm and dry; rightgroin drsg intact Medication: Medications: Continuous Medications 1. Heparin 25,000 units/ D5W 250 mL Infusion: 1000 units/hr IntraVenous Scheduled Medications 1. Aspirin Chewable: 81 mg Oral Daily2. Atorvastatin: 40 mg Oral Daily3. Carvedilol: 12.5 mg Oral 2 Times a Day4. Cit alopram: 20 mg Oral Daily5. Docusate 50 mg - Senna 8.6 m tablet(s) Oral 2 Times a Day6. Fludrocortisone: 0.05 mg Oral 7. Heparin (Repeat Bolus) Injectable: 4000 unit(s) IntraVenous Push Every 3Ijxqc6. Hydrocortisone: 10 mg Oral 9. Hydrocortisone: 5 mg Oral 10. Hydrocortisone: 2.5 mg Oral 11. Insulin Glargine (Lantus) Injectable: 20 unit(s) SubCutaneous Every 44Yjgcj58. Insulin Lispro Mild Corrective Scale: unit(s) SubCutaneous 3 Times a DayBefore Meals13. Levothyroxine: 150 microgram(s) Oral Daily14. Pantoprazole: 40 mg Oral Daily15. Polyethylene Glycol: 17 gram(s) Oral Daily16. rOPINIRole: 6 mg Oral 17. Sodium Chloride 0.65% Nasal [place]: 2 spray(s) Each Nostril 2 Times aDay PRN Medications 1. Dextrose 50% in Water Injectable: 25 gram(s) IntraVenous Push Every 40Woqckwu0. Glucagon Injectable: 1 mg IntraMuscular Every 15 Minutes Currently Suspended Medications 1. Chlorhexidine Gluconate 4% Topical: 1 application(s) Topical Once Recent Lab Results: Results: I have reviewed these laboratory results: Glucose_POCT Trend ing View Yvjidx76-Hcq-7464 06:54:00 23-Mar-2018 20:50:00Glucose-LHIJ508 H 290 H Complete Blood Count Trending View Hfguqr06-Sjm-8268 03:30:00 23-Mar-2018 20:34:00White Blood Cell Count7.6 7.5Nucleated Erythrocyte Count0.0 0.0Red Blood Cell Count4.33 L 4.34 LHGB13.4 L 13.6HCT40.0 L 39.8 LMCV92 11JBBL10.5 34.4VMG918 216RDW-CV12.9 12.9 Basic Metabolic Panel 24-Mar-2018 03:30:00 ResultValueGlucose, Serum 358 HNA 134 LK 4.2CL 103Bicarbonate, Serum 21Anion Gap, Serum 14BUN 26 HCREAT 1.24GFR-Non 58 AGFR- 70Calcium, Serum 9.1 Heparin assay, UFH Trending View Yjxpru32-Jws-7232 03:30:00 23-Mar-2018 23:27:00Heparin assay, UFH0.4 0.3 Renal Function Panel 23-Mar-2018 20:34:00 ResultValueGlucose, Serum 271 HNA 136K 4.2CL 102Bicarbonate, Serum 24Anion Gap, Serum 14BUN 21CREAT 1.23GFR-Non 59 AGFR- 71Calcium, Serum 9.2Phosphorus, Serum 3.9ALB 3.7 Radiology Results: Results: Conclusion:CONCLUSIONS: 1. Successful IVC filter insertion. _ Cardiac Catheterization Lab Procedures [Mar 23 2018 2:06PM] Conclusion:VASC LAB PVR (Arterial Physiologic) BROOKS [Mar 20 2018 11:27AM] Conclusion:VASC LAB PVR (Arterial Physiologic) BROOKS [Mar 20 2018 11:14AM] Conclusion:VASC LAB Pre-op Vessel Vein Mapping [Mar 20 2018 11:08AM] Conclusion:VASC LAB Arterial Duplex Ultrasound[Mar 20 2018 11:01AM] Assessment and Plan:Assessment:67 yo M with HTN, DLD, T2DM, Addisson's, GERD, prostate ca s/p prostatectomy [id number], hypothyroidism, psoriasis, and most recently diagnosed with a PE andmultivessel CAD transferred to medicine at [facility] from [facility] on03/18 for CABG eval. Multiple PEs- addison. Segmental and subsegmental PE on CT- Repeat TTE --> No Right dilation orstrain- 2V CXR --> No radiographic evidence of acute cardiopulmonary process.- Appreciate Pulmonary assistance- c/w Heparin gtt- s/p IVC Filter yesterday- Delay CABG for 1 week Tentative plan withDr. Gaston Friday 03/30-- plan for 3-6 months [...] units- Add Lispro 6 units before meals [place]'s disease- 03/22 Reduce fludrocortisone to 0.05 mg [...] 1.36] GI ppx: on PPICode status: Full Signature/Cosignature/Attestation:Attending Only - Shared Visit with Advanced Practice ProviderThis is a sharedvisit. I have reviewed the Advanced Practice Providers encounter note,approve the Advanced Practice Providers documentation, and provide thefollowing additional information from my personal encounter.Comments/ Additional FindingsS/p IVC filter yesterday.Continue heparin gtt for PE. Await CABG on Friday.Appreciate Pulmonary input. Electronic Signatures:Vito Patino (HEALTH AND SAFETY TECH-IRON WORKER APPRENTICE) (Signed 24-Mar-2018 09:27)Authored: Service, Subjective Data, Objective Data, Assessment and Plan,Signature/Cosignature/AttestationLeonel Arteaga) (Signed 26-Mar-2018 11:20)Authored: Signature/Cosignature/AttestationCo-Signer: Service, Subjective Data, Objective Data, Assessment and Plan,S ignature/Cosignature/Attestation Last Updated: 26-Mar-2018 11:20 by Leonel Arteaga)[facility] ClinicDaily Progress Note-Endocrinologyon 44-87-4531Qgsqbuw mass concConsult Type: subsequent visit/care Service: Endocrinology Subjective Data:DON ELKINS is a 67 yearold Male who is Hospital Day # 7. BS above range. Objective Data: Objective Information:T YPGAMeU3Quwkk68.23248378/8397%Date/Time03/24 12: 12: 12: 12: 12:41Range(35.6C - 36.8C [...] dry, acanthosis nigricans Medication: Medications: Continuous Medications 1. Sodium Chloride 0.9% .: 250 mL IntraVenous Scheduled Medications 1. Aspirin Chewable: 81 mg Oral Daily2. Atorvastatin: 40 mg Oral Daily3. Carvedilol: 12.5 mg Oral 2 Times a Day4. Citalopram: 20 mg Oral Daily5. Docusate 50 mg - Senna 8.6 m tablet(s) Oral 2 Times a Day6. Fludrocortisone: 0.05 mg Oral 7. Heparin (Repeat Bolus) Injectable: 4000 unit(s) IntraVenous Push Every 6Sgtea5. Hydrocortisone: 10 mg Oral 9. Hydrocortisone: 5 mg Oral 10. Hydrocortisone: 2.5 mg Oral 11. Insulin Glargine (Lantus) Injectable: 25 unit(s) SubCutaneous Every 34Magnx78. Insulin Lispro (HumaLOG) Injectable: 6 unit(s) SubCutaneous 3 Times aDay Before Meals13. Insulin Lispro Mild Corrective Scale: unit(s) SubCutaneous 3 Times a DayBefore Meals14. Levothyroxine: 150 microgram(s) Oral Daily15. Pantoprazole: 40 mg Oral Daily16. Polyethylene Glycol: 17 gram(s) Oral Daily17. rOPINIRole: 6 mg Oral 18. Sodium Chloride0.65% Nasal [place]: 2 spray(s) Each Nostril 2 Times aDay PRN Medications 1. Dextrose 50% in Water Injectable: 25 gram(s) IntraVenous Push Every 36Hfvdayw4. Glucagon Injectable: 1 mg IntraMuscular Every 15 Minutes Currently Suspended Medications 1. Chlorhexidine Gluconate 4% Topical: 1 application(s) Topical Once Recent Lab Results: Results: I have reviewed these laboratory results: Glucose_POCT Trending View Wppzaq68-Czh-4284 12:46:00 24-Mar-2018 11:46:00 24-Mar-2018 06:54:00 23-Mar-2018 20:50:00 23-Mar-2018 15:44:00 06-Rma-978402:37:00 75-Zla-332814:37:00 22-Mar-2018 21:18:00Glucose- VRNW170 H 262 H 217 H 290 H 228 H 226 H 189H 275 H Basic Metabolic Panel 24-Mar-2018 03:30:00 ResultValueGlucose, Serum 358 HNA 134 LK 4.2CL 10 3Bicarbonate, Serum 21Anion Gap, Serum 14BUN 26 HCREAT 1.24GFR-Non 58 AGFR-AfricanAmerican 70Calcium, Serum 9.1 Renal Function Panel Trending View Noypum58-Ilk-5522 20:34:00 22-Mar-2018 19:24:00Glucose, Eswny585 H 226 MDY304 138K4.2 4.7OZ424 102Bicarbonate, Serum24 25Anion Gap, Serum14 81BEU85 24 HCREAT1.23 1.53 HGFR-Non Tkltsobl01 A 46 AGFR- Pxjjwlns99 56 ACalcium, Serum9.2 9.0Phosphorus, Serum3.9 4.0ALB3.7 3.7 Assessment and Plan:Assessment: Mr. Elkins is a 67 yo WM with no known history of CAD, who has a past medicalhistory of HTN, HLD, T2DM, Brigida's disease, hypothyroidism, COPD, AKASH onCPAP, prostate ca s/p prostatectomy in 2011, and psoriasis who was tra nsferredto HHVI service at [facility] from [facility] on 03/18 David marshall.Endocrine consulted fr evaluation of [place] disease and treatment periop Patient was on supra-therapeutic dose of HCT 20-0-20 , fludrocortisone 0.1 ,mgdailyPatient has uncontrolled HTN and uncontrolled BSMost likely tomorrow (03/23) IVC filter placement Recommendations:1. [place]'s Disease-- Fludrocortiso ne 0.05 mg 4 times weekly ( and friday)-- Continue Hydrocortisone to 10-5-2.5 mg at 1nb-07or-9lnHNOPN as of tomorrow -On the day of the surgery (CABG) please give Hydrocortisone 30 mg by mouthonce at 5 am , check the cortisol level at 7 am , then continue Hydrocortisoneas 25 mg IV q6hrs thereafter as of 8 am. Please keep endo team informed aboutthe date of the surgery please. 2. T2DM-- Make la ntus 25 units once daily And Add Lispro 6 units TIDAC-- Continue ISS 2 units for every 50 above 150-- POCT AC and qHs-- Hypoglycemia protocol--Diabetic diet--will follow Please page with questions [phone] Patient seen and examined, plan discussed with Dr Quevedo Signature/Cosignature/Attestation:Attending AttestationI saw and evaluated the patient. I [...] patient (as noted in the above attestation) [id number] Electronic Signatures:Starr Quevedo) (Signed 28-Mar-2018 09:05)Authored: Signature/Cosignature/AttestationCo- Signer: Service, Subjective Data, Objective Data, Assessment and PlanHasmukh Stephenson (Resident)) (Signed 24-Mar-2018 13:56)Authored: Service, Subjective Data, Objective Data, Assessment and Plan Last Updated: 28-Mar-2018 09:05 by Starr Quevedo)[facility]wat[facility] ClinicGLUCOSE-POCT on 75-09-3946Yazmdoj mass nkur346 mg/qKHygq[address] Comment on above:Performed By: #### GLUPO ####[id number], [place] [address]Fcspusl mass kswv345 mg/pIOzcv1022 Wilson StreetComment on above:Performed By: #### GLUPO ####[id number] [place] [address] Glucose mass doac822 mg/cUSekt7522 Wilson StreetComment on above:Performed By: #### GLUPO ####[id number] [place] [address] Glucose mass hjkf225 mg/bUSqug1922 Wilson StreetComment on above:Performed By: #### GLUPO ####[id number] [place] [address] Glucose mass srxk830 mg/gXMehz[address] [place], [place] [address]Comment on above:Performed By: #### GLUPO ####[id number] [place] [address] HEPARIN ASSAY,UFHon 49-35-4269OXVPVWV ASSAY,UFH0.4 IU/mLNCook HospitalComment on above:Result Comment: The therapeutic reference range for UFH may be either 0.3-0.6 IU/mL or 0.3-0.7 IU/mL based on the clinical setting for anticoagulant therapy and the associated nomogram used. For heparin dosing guidelines based on clinical scenario and Heparin Assay results, please refer to local Pharmacy and [facility] Guidelines for Anticoagulation therapy available on the [facility] intranet at:[email or web address]/Pages/[facility]_Guide lines_for_Anticoagu.aspxPerformed By: #### HAUF ####[id number], [place] [address]SZBNOUL ASSAY,UFH0.3 IU/mLNCook HospitalComment on above:Result Comment: The therapeutic reference range for UFH may be either 0.3-0.6 IU/mL or 0.3-0.7 IU/mL based on the clinical setting for anticoagulant therapy and the associated nomogram used. For heparin dosing guidelines based on clinical scenario and Heparin Assay results, please refer to local Pharmacy and the [facility] Guidelines for Anticoagulation therapy available on the [facility] intranet at:[email or web address]/Pages/[facility]_Guide lines_for_Anticoagu.aspxPerformed By: #### HAUF ####[id number], [place] [address]TMYHE FUNCTION PANELon 13-46-7137Gtfmklx mass conc3.7 g/dLNormal3.4 - 5.0[facility] Toms RiverComment on above:Performed By: #### RENAL ####[id number], [place] [address]Uuwrp gap 3 molar conc14 mmol/RZfgyob86 - 20[facility] Toms RiverComment on above:Performed By: #### RENAL ####[id number], [place] [address]Xybpqld mass conc9.2 mg/dLNormal8.6 - 10.6[facility] Toms RiverComment on above:Performed By: #### RENAL ####[id number], [place] [address]Ircmnyst molar ltho789 mmol/HXsuytp92 - 107[facility] Toms RiverComment on above:Performed By: #### RENAL ####[id number], [place] [address]Fvghbpcbem mass conc1.23 mg/dLNormal0.50 - 1.30[facility] Toms RiverComment on above:Performed By: #### RENAL ####[id number], [place] [address]NQB-XXTNFOD AM.71 mL/min/1.15j0Zxmbqc>60[facility] Toms RiverComment on above:Result Comment: CALCULATIONS OF ESTIMATED GFR ARE PERFORMED USING THE MDRD STUDY EQUATION FOR THE IDMS-TRACEABLE CREATININE METHODS. CLIN CHEM 2007;53:766-72 Performed By: #### RENAL ####[id number], [place] [address]NHX-NJS AM.59 mL/min/1.86n4Wkidzinw>60[facility] Toms RiverComment on above:Performed By: #### RENAL ####[id number] [place] [address] Glucose mass fsnw369 mg/tSLjeo18 - 99[facility] Toms RiverComment on above:Performed By: #### RENAL ####[id number], [place] [address]SBA2 molar conc (Bld)24 mmol/WYncxft20 - 32[facility] Toms RiverComment on above:Performed By: #### RENAL ####[id number] [place] [address] Phosphate mass conc3.9 mg/dLNormal2.5 - 4.9[facility] Toms RiverComment on above:Result Comment: The performance characteristics of phosphorus testing in heparinized plasma have been validated by the individual laboratory site where testing is performed. Testing on heparinizedplasma is not approved by the FDA; however, such approval is not necessary.Performed By: #### RENAL ####[id number], [place] [address]Dzbeewegs molar conc4.2 mmol/L Normal3.5 - 5.3[facility] Toms RiverComment on above:Performed By: #### RENAL ####[id number], [place] [address]Eclglc molar drfy362 mmol/L Lmfqik479 - 145[facility] Toms RiverComment on above:Performed By: #### RENAL ####[id number], [place] [address]Xnff nitrogen mass conc21 mg/dLNormal6 - 23[facility] Toms RiverComment on above:Performed By: #### RENAL ####[id number], [place] [address]KTV/RH GROUP TESTon 17-05-6259KCE TYPEANormVibra Long Term Acute Care HospitalComment on above:Performed By: #### TSH2 ####[id number], [place] [address]WJ TYPEPositiveNormal [facility] Toms RiverComment on above:Performed By: #### TSH2 ####[id number], [place] [address]EJQKEUBUNWYKFID CONF,URINEon 62-13-1857881130-IKHRKCQCWPBNMSZ<5NormVibra Long Term Acute Care HospitalComment on above: Performed By: #### BENCN ####[facility] [facility] [place] [address] ALPHA-HYDROXYALPRAZOLAM<5NormalUHealthsouth - Specialty Hospital Of UnionComment on above: Performed By: #### BENCN ####[facility] [facility] [place] [address] ALPHA-TVTMXJTBOYGRZBCB91 ng/mLNCook HospitalComment on above: Result Comment: Midazolam metabolite: consistent with use of a drug containingmidazolam, such as Versed.Performed by [facility] [employer],[address] [place] [address],[place] [address] kge.Xcalia, MD Baldo - Lab. Director Performed By: #### BENCN ####[address] [place] [address] ALPRAZOLAM<5NormVibra Long Term Acute Care HospitalComment on above:Performed By: #### BENCN ####[address], [place] [address]UUJFGJJBUMCWOBQH<20Normal [facility] Toms RiverComment on above:Performed By: #### BENCN ####[facility] [facility], [place] [address]OJZHBKIUMK<5NoVail Health HospitalComment on above:Performed By: #### BENCN ####[address], [place] [address]GGARAUNQ<20NoVail Health HospitalComment on above: Result Comment: INTERPRETIVE INFORMATION: Benzodiazepines, Urine, QuantitativeMethodology: Quantitative Liquid Chromatography-Tandem MassSpectrometryPositive cutoff: 20 ng/mL unless specified below:Alprazolam 5 ng/mLAlpha-hydroxyalprazolam 5 ng/mLClonazepam 5 ng/mL7-aminoclonazepam 5 ng/mLFor medical purposes only; not valid for forensic use.Identification of specific drug(s) taken by specimen donor isproblematic due to common metabolites, some of which areprescription drugs themselves. The absence of expected drug(s)and/or drug metabolite(s) may indicate non- compliance,inappropriate timing of specimen collection relative to drugadministration, poor drug absorption, diluted/adulterated urine,or limitations of testing. The concentration value must be greaterthan or equal to the cutoff to be reported as positive.Interpretive questions should be directed to the laboratory.Test developed and characteristics determined by [facility]. See Compliance Statement B: [email or web address] By: #### BENCN ####[facility] [address], [place] [address]KLNFMOTOF<20NormVibra Long Term Acute Care HospitalComment on above:Performed By: #### BENCN ####[facility] [address], [place] [address]GLRHBLSYR<20NormVibra Long Term Acute Care HospitalComment on above:Performed By: #### BENCN ####[facility] [address], [place] [address]GSFRVELUXIJ<20NormVibra Long Term Acute Care HospitalComment on above: Performed By: #### BENCN ####[facility] [address] [place] [address] OXAZEPAM<20NormVibra Long Term Acute Care HospitalComment on above:Performed By: #### BENCN ####[facility] [address], [place] [address]SPYRVTTHZ<20NormVibra Long Term Acute Care HospitalComment on above:Performed By: #### BENCN ####[facility] [address], [place] [address]Dhszh Progress Note-Cardiologyon 31-73-4247Puversp mass concService: Cardiology Subjective Data:DON ELKINS is a 67 year old Male who is Hospital Day # 6. Additional Information:s/p IVC Filter placement today, SBP remains elevated 150-160s, BS remainelevated 2-300s - restart Heparin gtt this evening- Plan for CABG next week Objective Data: Objective Information:T WXRTVmE6Mmatp104111211/7593%Date/Time03/23 11:: 11:00Range(35.8C - 37C ) (69 - 78 ) (17 - 20 ) (121 - 168 )/ (73 - 91 ) (93% -97% )Highest temp of 37 C was recorded at 03/23 11:00 Pain with Activity reported at 03/23 11:00: 0Pain at Rest reported at 03/23 11:00:0 Gvqbdnd60/5 3:51: Weight in kg (Weight (kg)) 108.811/ 3:51: Weight in lbs ((lbs)) 239.8 PhysicalExam: Constitutional: Resting in bed, NADHead/Neck: No JVDRespiratory/Thorax: CTABCardiovascular: RRR, S1 R7Vmexaehewakiltih: soft, NT/NDExtremities: No edemaNeurological: alert and oriented m1Ucrjmejgphkps: Appropriate mood and behaviorSkin: psoriasis plaque over elbows and knees; otherwise warm and dry; rightgroin drsg intact Medication: Medications: Continuous Medications No continuous medications are active Scheduled Medications 1. Aspirin Chewable: 81 mg Oral Daily2. Atorvastatin: 40 mg Oral Daily3. Carvedilol: 12.5 mg Oral2 Times a Day4. Citalopram: 20 mg Oral Daily5. Docusate 50 mg - Senna 8.6 m tablet(s) Oral 2 Times a Day6. Fludrocortisone: 0.05 mg Oral 7. Heparin (Repeat Bolus) Injectable: 4000 unit(s) IntraVenous Push Every 2Ttpmg6. Hydrocortisone: 5 mg Oral 9. Insulin Lispro Mild Corrective Scale: unit(s) S ubCutaneous 3 Times a DayBefore Meals10. Levothyroxine: 150 microgram(s) Oral Daily11. Mupirocin 2%: 0.5 application(s) Each Nostril 2 Times a Day12. Pantoprazole: 40 mg Oral Daily13. Polyethylene Glycol: 17 gram(s) Oral Daily14. rOPINIRole: 2 mg Oral 3 Times a Day15. Sodium Chloride 0.65% Nasal [place]: 2 spray(s) Each Nostril 2 Times aDay PRN Medications 1. Dextrose 50% in Water Injectable: 25 gram(s) IntraVenous Push Every 63Aldfefe1. Glucagon Injectable: 1 mg IntraMuscular Every 15 Minutes Currently Suspended Medications 1. Chlorhexidine Gluconate 4% Topical: 1 application(s) Topical Once2. Heparin 25,000 units/ D5W 250 mL Infusion: 1000 units/hr IntraVenous 3. Hydrocortisone: 10 mg Oral 4. Hydrocortisone: 5 mg Oral 5. Hydrocortisone: 2.5 mg Oral Recent Lab Results: Results: I have reviewed these laboratory results: Glucose_POCT Trending View Dswbul57-Hsh-8168 11:37:00 23-Mar-2018 07:37:00 22-Mar-2018 21:18:00Glucose-OSTA712 H 189 H 275 H Heparin assay, UFH Trending View Guderj95-Iwq-1445 02:02:00 22-Mar-2018 19:24:00Heparin assay, UFH0.4 0.2 Complete [...] 9.0Phosphorus, Serum 4.0ALB 3.7 Radiology Results: Results: Con clusion:CONCLUSIONS: 1. Successful IVC filter insertion. Cardiac Catheterization Lab Procedures [Mar 23 2018 2:06PM] Conclusion:VASC LAB PVR (Arterial Physiologic) BROOKS [Mar 20 2018 11:27AM] Conclusion:VASC LAB PVR (Arterial Physiologic) BROOKS [Mar 20 2018 11:14AM] Conclusion:VASC LAB Pre-op Vessel Vein Mapping [Mar 11:08AM] Conclusion:VASC LAB Arterial Duplex Ultrasound [Mar 20 2018 11:01AM] Assessment and Plan:Assessment:67 yo M with HTN, DLD, T2DM, Addisson's, GERD, prostate ca s/p prostatectomy [id number], hypothyroidism, psoriasis, and most recently diagnosed with a PE andmultivessel CAD transferred to medicine at [facility] from [facility] on03/18 for CABG eval. Multiple PEs- [...] Carvedilol for better BP control- Cardiac Cath upload ed- Plan for CABG with Dr. Gaston 03/30 [...] 155/44/82/141 HypothyroidismTSH 2.51- Continue home levothyroxine TIFFANI- MICHELLE-Adm Creatinine 1.42- Today 1.53 [1.66, 1.38, 1.36] GI ppx: on PPICode status: Full Signature/Cosignature/Attestation:Attending Only - Shared Visit with Advanced Practice ProviderThis is a sharedvisit. I have reviewed the Advanced Practice Providers encounter note,approve the Advanced Practice Providers documentation, and provide thefollowing additional information from my personal encounter.Comments/ Additional FindingsPlan on IVC filter today. Appreciate help from Dr. Stapleton and Dr. Ramirez.Restart anticoagulation post procedure. Electronic Signatures:Vito Patino (HEALTH AND SAFETY TECH-IRON WORKER APPRENTICE) (Signed 23-Mar-2018 15:52)Authored: Service, Subjective Data, Objective Data, Assessment and Plan,Signature/Cosignature/AttestationLeonel Arteaga) (Signed 26-Mar-2018 11:14)Authored: Signature/Cosignature/AttestationCo-Signer: Service, Subjective Data, Objective Data, Assessment and Plan,Signature/ Cosignature/Attestation Last Updated: 26-Mar-2018 11:14 by Leonel Arteaga)[facility] ClinicDaily Progress Note-Endocrinologyon 76-25-0268Jpemlqp mass concService: Endocrinology Subjective Data:DON ELKINS is a 67 year old Male who is Hospital Day # 6. Post IVF procedure today received HCt 30 mg once in ama d 10 mg IVat noon whilein the OR, HDS. Objective Data: Objective Information:T XXRRZyE9Doyfp967669721/7593%Date/Time03/23 11: 11: 11: 11: 11:00Range(35.8C - 37C ) (69 [...] clear scleraRespiratory/Thorax: Diffuse decrease air entry bilaterallyCardiovascular: S1-U7bptellv, no murmursGastrointestinal: Nondistended, soft, non-tender, +BS, no straiePsychological: Appropriate mood and behaviorSkin: warm and dry, acanthosis nigricans Assessment and Plan:Assessment:Mr. Elkins is a 67 yo WM with no known history of CAD, who has a past medicalhistory of HTN, HLD, T2DM, [place]'s disease, hypothyroidism, COPD, AKASH onCPAP, prostate ca s/p prostatectomy in 2011, and psoriasis who [facility] at [facility] from [facility] on 03/18forCABG eval.Endocrine consulted fr 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 [place]'s Dise ase-- Fludrocortisone to 0.05 mg 4 times weekly ( and friday)-- Give HCt 5mg today at 5 pm then resume as below tomorrow-- Continue Hydrocortisone to 10-5-2.5 mg at 8my-21wj-4ej DAILY as of tomorrow -On the day [...] protocol--Diabetic diet--will follow Please page with questions [phone] Patient seen and examined, plan discussed with Dr Quevedo Signature/Cosignature/Attestation:Attending AttestationI saw and evaluated the patient. I personally obtainedthe judge and critical portions of the historyand physical exam or wasphysically present for judge and critical portions performed by theresident/fellow. I reviewed the resident/fellows documentation and discussedthe patient with the resident/fellow. I agree with the resident/fellowsmedical decision making as documented in the residents note.I pe rsonally evaluated the patient (as noted in the above attestation) [id number] Electronic Signatures:Starr Quevedo) (Signed 28-Mar-2018 09:04)Authored: Signature/Cosignature/AttestationCo-Signer: Service, Subjective Data, Objective Data, Assessment and Plan,Signature/Cosignature/Attesta Hasmukh Brice (Resident)) (Signed 23-Mar-2018 15:54)Authored: Service, Subjective Data, Objective Data, Assessment and Plan,Signature/Cosignature/Attestation Last Updated: 28-Mar-2018 09:04 by Starr Quevedo)[facility] ClinicDaily Progress Note-Pulmonologyon 26-79-4526Anydu Progress Note-PulmonologyConsult Type: subsequent visit/care Sign Off Recommendations Service: [...] on ambient air. Objective Data: Objective Information:T HBXDFoW0Kzfhz810775836/7193%Date/Time03/23 11: 15: 15: 11:00Range(35.8C - 37C ) (67 - [...] CN 2-12 grossly intact, non-focalPsychological: Normal mood, affectSkin:warm, dry Recent Lab Results: Results: I have reviewed these laboratory results: Complete Blood Count 22-Mar-2018 19:24:00 ResultValueWhite Blood Cell Count 7.3Nucleated Erythrocyte Count 0.0Red Blood Cell Count 4.07 LHGB 12.8 LHCT 38.0 LMCV 93MCHC 33.7PLT 214RDW-CV 12.8 Renal Function Panel 22-Mar-2018 19:24:00 ResultValueGlucose, Serum 226 HNA 138K 4.2CL 102Bicarbonate, Serum 25Anion Gap, Qoimc72OEH 24 HCREAT 1.53 HGFR-Non 46 AGFR- 56 [...] medicine will sign offPlease page with questions [phone] Signature/Cosignature/Attestation:Attending AttestationI saw and evaluated the patient. I personally obtainedthe judge and critical portions of the history and physical exam or wasphysically present for judge and critical portions performed bytheresident/fellow. I reviewed the resident/fellows documentation and discussedthe patient with theresident/fellow. I agree with the resident/fellowsmedical decision making as documented in the residents note.I personally evaluated the patient (as noted in the above attestation) [id number] Electronic Signatures:Angie Fuentes) (Signed 23-Mar-2018 18:13)Authored: Service, Signature/Cosignature/AttestationCo-Signer: Service, Subjective Data, Objective Data, Assessment and Plan,Signature/Co signature/AttestationPrincess Garnica (Fellow)) (Signed 23-Mar-2018 16:18)Authored: Service, Subjective Data, Objective Data, Assessment and Plan,Signature/Cosignature/Attestation Last Updated: 23-Mar-2018 18:13 by Angie Fuentes)[facility] ClinicGLUCOSE-POCTon 03-23-2018 Glucose mass bsor296 mg/uZIoxg4522 Wilson StreetComment on above:Performed By: #### GLUPO ####[id number] [place] [address] Glucose mass xepq981 mg/bTRtsk3322 Wilson StreetComment on above:Performed By: #### TSH2 ####[id number] [place] [address] Glucose mass opjt163 mg/cQDgnu8622 Wilson StreetComment on above:Performed By: #### TSH2 ####[id number] [place] [address] Glucose mass qfvm038 mg/mARbas3222 Wilson StreetComment on above:Performed By: #### TSH2 ####[id number] [place] [address] HEPARIN ASSAY,UFHon [id number] ASSAY,UFH0.4 IU/mLNormalUH Rivers Medical CenterComment on above:Result Comment: The therapeutic reference range for UFH may be either 0.3-0.6 IU/mL or 0.3-0.7 IU/mL based on the clinical setting for anticoagulant therapy and the associated nomogram used. For heparin dosing guidelines based on clinical scenario and Heparin Assay results, please refer to local Pharmacy and the [facility] Guidelines for Anticoagulation therapy available on the [facility] intranet at:[email or web address]_Guide lines_for_Anticoagu.aspxPerformed By: #### TSH2 ####[id number] [place], [place] [address]IZEZCYLZT REPORTon [id number] REPORTUnMansfield Hospital[address] [place], [place] [address]Kuvglva Name: DON ELKINSMRN: [id number]: 1Encounter Number: [id number] of Service: 03/23/2018Patient Location: [facility] T5023 [id number] Type: ISurgeon: Ana King Type: Operative ReportsPREOPERATIVE [...] the indications, risks, benefits, and alternatives and wishedto proceed.DETAILS OF PROCEDURE: After adequate local anesthesia in the right groin, the right femoral vein was accessed via single wall puncture technique using ultrasound guidance. A 5-Maltese sheath was placed. A wire was placed into the cava. We did cavography first looking at the iliac venous system through the sheath and then using a marker pigtail at the perirenal level. We reviewed the images. We then proceeded with placing a filter. This was done first by dilating the tract over a stiffwire and then placing the long filter sheath up to the level of L2. The filter was brought into position and then deployed without incident. The sheath and catheters were removed, and manual pressurewas used for hemostasis.SUPERVISION INTERPRETATION: Initial iliac venous imaging shows a patent iliac venous system. The cava is patent. There is normal renal venous outflow. We then had the filter in place in the appropriate location.Severiano Stapleton MD ESTTT: 03/24/2018 00:30 AM ESTDICTATION NUMBER: [id number] JOB NUMBER: [id number]:Leonel Arteaga MD, [id number] Cheng MD, PhDElectronically Signed by Dr. Severiano Stapleton 04/01/2018 03:04:35 PM [facility] ClinicOPIATE CONFIRMATION,URINEon 03-23-2018 6-ACETYLMORPHINE<10NoVail Health HospitalComment on above:Result Comment: INTERPRETIVE INFORMATION: Opiates, Urine, QuantitativeMethodology: Quantitative Liquid Chromatography-Tandem [...] the laboratory.Test developed and characteristics determined by [facility]. See Compliance Statement B: Xcalia/CS Performed By: #### OPIC2 ####[address] [place] [address] CODEINE<20NoVail Health HospitalComment on above:Performed By: #### OPIC2 ####MARGARITOUP [address] [facility], [place] [address]PVEFEYFYLDX<20NormVibra Long Term Acute Care HospitalComment on above:Performed By: #### OPIC2 ####ARUP [address] [facility], [place] [address]SDJWHRUIQYECE<20NormVibra Long Term Acute Care HospitalComment on above:Performed By: #### OPIC2 ####MARGARITOUP [address] [facility], [place] [address]QCZDJPGU<20NormVibra Long Term Acute Care HospitalComment on above:Performed By: #### OPIC2 ####NYUP [address] [facility] [place] [address] NORHYDROCODONE<20NoVail Health HospitalComment on above:Result Comment: Performed by BETH Harvey,[address] [place] [address],[place] [address] wba.Xcalia, Esteban Carbajal MD - Lab. DirectorPerformed By: #### OPIC2 ####MARGARITOUP [address] [facility], [place] [address]UJHZTTNCLRUL<20NoVail Health HospitalComment on above:Performed By: #### OPIC2 ####NYUP [address] [facility], [place] [address]PYJHRDVCVIOFTZ<20NormVibra Long Term Acute Care HospitalComment on above:Performed By: #### OPIC2 ####ARUP [address] [facility], [place] [address]ATVDOKNEM<20NoVail Health HospitalComment on above:Performed By: #### OPIC2 ####ARUP [address] [facility] [place] [address] OXYMORPHONE<20NormVibra Long Term Acute Care HospitalComment on above:Performed By: #### OPIC2 ####ARUP [address] [facility], [place] [address]Ootvj Checkliston 63-69-6864Dadgh ChecklistPreop Checklist:Preop Checklist: Procedure TypeIVC filter NPO Vlhpsn83-Ody-5967 00:00 ID Band OnyesAllergy Bandno known allergies SCD's Appliedno Denturesnot applicable Prostheticsnot applicable Hearing Aidsnot applicable Valuables Securedleft in patient room Glasses / Contactsleft in patient roomCardiovascular Assessment: Apicalregular Radial Pulsespalpable Pedal Pulsespalpable ExtremitieswarmRespiratory Assessment: Respirationsregular Air Exchangeequal Breath Soundsclear Neurological Assessment: Level of Consciousnessalert, oriented Mobilitymoves all extremities Able to Express Selfyes Age Appropriateyes Emotional Statuscalm Language / Communication: Language / CommunicationEnglish Electronic Signatures:Matt Zapien (ANDREA) (Signed 23-Mar-2018 06:11)Authored: Preop Checklist Last Updated: 23-Mar-2018 06:11 by Matt Zapien (ANDREA)NormalHealthSouth [facility] Rehabilitation Hospital of Toms RiverRENAL FUNCTION PANELon 54-28-7357Ilfrujg mass conc3.7 g/dLNormal3.4 - 5.0[facility] Comment on above:Performed By: #### TSH2 ####[id number], [place] [address]Mztlj gap 3 molar conc15 mmol/VQcsuht51 - 20[facility] Comment on above:Performed By: #### TSH2 ####[id number], [place] [address]Tpwsiji mass conc9.0 mg/dLNormal8.6 - 10.6[facility] Comment on above:Performed By: #### TSH2 ####[id number], [place] [address]Tnmmshhp molar efuo744 mmol/ZLzsooi59 - 107[facility] Comment on above:Performed By: #### TSH2 ####[id number], [place] [address]Vzxnuhjnmw mass conc1.53 mg/dLHigh0.50 - 1.30[facility] Comment on above:Performed By: #### TSH2 ####[id number], [place] [address]OGO-QWPQWRA AM.56 mL/min/1.71b8Kjknxxrf>60[facility] Comment on above:Result Comment: CALCULATIONS OF ESTIMATED GFR ARE PERFORMED USING THE MDRD STUDY EQUATION FOR THE IDMS-TRACEABLE CREATININE METHODS. CLIN CHEM 2007;53:766-72Performed By: #### TSH2 ####[id number], [place] [address]QUM-VXP AM.46 mL/min/1.15h8Bfbbeqjy>60[facility] Toms RiverComment on above:Performed By: #### TSH2 ####[id number], [place] [address]Nckmxor mass rsmz118 mg/eHAlns42 - 99[facility] Toms RiverComment on above:Performed By: #### TSH2 ####[id number], [place] [address]MLY4 molar conc (Bld)25 mmol/SBnhhbn53 - 32[facility] Toms RiverComment on above:Performed By: #### TSH2 ####[id number], [place] [address]Qmhtjmlkq mass conc4.0 mg/dLNormal2.5 - 4.9[facility] Toms RiverComment on above:Result Comment: The performance characteristics of phosphorus testing in heparinized plasma have been validated by the individual laboratory site where testing is performed. Testing on heparinized plasma is not approved by the FDA; however, such approval is not necessary. Performed By: #### TSH2 ####[id number], [place] [address]Gflvvzygn molar conc4.2 mmol/LNormal3.5 - 5.3[facility] of Toms RiverComment on above: Performed By: #### TSH2 ####[id number], [place] [address]Yyiiee molar bbbc739 mmol/UVxzwsr258 - 145[facility] Toms RiverComment on above: Performed By: #### TSH2 ####[id number], [place] [address]Cegi nitrogen mass conc24 mg/dLHigh6 - 23[facility] Toms RiverComment on above: Performed By: #### TSH2 ####[id number], [place] [address]TIFmw 82-39-3547Qdlhenyjbia distribution width Auto Ratio (RBC)12.8 %Wacuaa36.5 - 14.5 [facility] Toms RiverComment on above:Performed By: #### LIPID ####[id number], [place] [address]Urjdwgvibq Auto Volume Fraction (Bld)38.0 %Low41.0 - 52.0[facility] of Toms RiverComment on above:Performed By: #### LIPID ####[id number], [place] [address]Qxqqaamybp mass conc (Bld)12.8 g/dLLow13.5 - 17.5[facility] Toms RiverComment on above: Performed By: #### LIPID ####[id number], [place] [address]XYRU Auto mass conc (RBC)33.7 g/oIAhctet83.0 - 36.0[facility] Toms RiverComment on above:Performed By: #### LIPID ####[id number], [place] [address]JBZ Auto Entitic volume (RBC)93 iHMlijvn72 - 100[facility] Toms RiverComment on above:Performed By: #### LIPID ####[id number] [place] [address] Nucleated RBC/100 WBC Ratio (Bld)0.0 /100 WBCNormal0.0-0.0[facility] Toms RiverComment on above:Performed By: #### LIPID ####[id number], [place] [address]Foybwufov Auto #/vol (Bld)214 10*3/xWErwmxy066 - 450[facility] Toms RiverComment on above:Performed By: #### LIPID ####[id number], [place] [address]LOJ Auto #/vol (Bld)4.07 x10E12/LLow4.50 - 5.90[facility] Toms RiverComment on above:Performed By: #### LIPID ####[id number], [place] [address]AEW Auto #/vol (Bld)7.3 10*3/uLNormal4.4 - 11.3[facility] Toms RiverComment on above:Performed By: #### LIPID ####[id number], [place] [address]Dgjauwzpopa distribution width Auto Ratio (RBC) 12.9 %Axvqvg79.5 - 14.5[facility] Toms RiverComment on above:Performed By: #### RENAL ####[id number], [place] [address]Wpdakuacfr Auto Volume Fraction (Bld)40.8 %Low41.0 - 52.0[facility] Toms RiverComment on above: Performed By: #### RENAL ####[id number], [place] [address]Rwbrfgiybe mass conc (Bld)13.5 g/zBQrhtvu95.5 - 17.5[facility] Toms RiverComment on above:Performed By: #### RENAL ####[id number], [place] [address]OHGQ Auto mass conc (RBC)33.1 g/wRMbvzvz55.0 - 36.0[facility] Toms RiverComment on above:Performed By: #### RENAL ####[id number] [place] [address] MCV Auto Entitic volume (RBC)94 dTDkniux44 - 100[facility] Comment on above:Performed By: #### RENAL ####[id number], [place] [address]Mljufgtly RBC/100 WBC Ratio (Bld)0.0 /100 WBCNormal0.0-0.0[facility] Toms RiverComment on above:Performed By: #### RENAL ####[id number], [place] [address]Yzaharnqi Auto #/vol (Bld)241 10*3/wXGjtqhl322 - 450[facility] Toms RiverComment on above:Performed By: #### RENAL ####[id number], [place] [address]MRX Auto #/vol (Bld)4.35 x10E12/LLow4.50 - 5.90[facility] Toms RiverComment on above:Performed By: #### RENAL ####[id number], [place] [address]DZN Auto #/vol (Bld)9.4 10*3/uLNormal4.4 - 11.3UH [facility]fk Johnson Rehabilitation InstituteComment on above:Performed By: #### RENAL ####[id number], [place] [address]Yzsts Progress Note-Cardiologyon 80-77-4946Hkahumc mass concService: Cardiology Subjective Data:DON ELKINS is a 67 year old Male who is Hospital Day # 5. Additional Information:Creatinine up to 1.66 etiology, BS 200s over past 24 hours - NPO after MN for IVCfilter tomorrow- Hold Heparin starting at 0600- Glargine insulin 20 units x1 today- Adjust Hydrocortisone per Endo recs Objective Data: Objective Information:T BTWXToA4Xowmd01.73058429/8895%Date/Time03/22 12: 12: 12: 12: 12:00Range(36C - 36.4C ) (73 - 83 ) (17 - 18 ) (120 - 188 )/ (57 - 99 ) (93% -99% ) Pain with Activity reported at 03/21 15:25: 0Pain at Rest reported at 03/21 15:25: 0 Okzdphu07/4 3:13: Weight in kg (Weight (kg)) 108.611 3:13: Weight in lbs ((lbs)) 239.4Physical Exam: Constitutional: Resting in bed, NADHead/Neck: No JVDRespiratory/Thorax: CTABCardiovascular: RRR, S1 X8Fsqliwwdetnusczh: soft, NT/NDExtremities: No edemaNeurological: alert and ptrlzgmsr0Ziypafdycbbrf: Appropriate mood and behaviorSkin: psoriasis plaque over elbows and knees; otherwise warm and dry Medication: Medications: Continuous Medications 1. Heparin 25,000 units/ D5W 250 mL Infusion: 1000 units/hr IntraVenous Scheduled Medications 1. Aspirin Chewable: 81 mg Oral Daily2. Atorvastatin: 40 mg Oral Daily3. Carvedilol: 12.5 mg Oral 2 Times a Day4. Citalopram: 20 mg Oral Daily5. Docusate 50 mg - Senna 8.6 m tablet(s) Oral 2 Times a Day6. Fludrocortisone: 0.05 mg Oral 7. Heparin (Repeat Bolus) Injectable:4000 unit(s) IntraVenous Push Every 6Tyess1. Hydrocortisone: 2.5 mg Oral 9. Hydrocortisone: 30 mg Oral 10. Hydrocortisone: 10 mg Oral 11. Hydrocortisone: 5 mg Oral 12. Insulin Lispro Mild Corrective Scale: unit(s) SubCutaneous 3 Times a DayBefore Meals13. Levothyroxine: 150 microgram(s) Oral Daily14. Mupirocin 2%: 0.5 application(s) Each Nostril 2 Times a Day15. Pantoprazole: 40 mg Oral Daily16. P olyethylene Glycol: 17 gram(s) Oral Daily17. rOPINIRole: 2 mg Oral 3 Times a Day18. Sodium Chloride0.65% Nasal [place]: 2 spray(s) Each Nostril 2 Times aDay PRN Medications 1. Dextrose 50% in Water Injectable: 25 gram(s) IntraVenous Push Every 64Eaiknyy0. Glucagon Injectable: 1 mg IntraMuscular Every 15 Minutes Currently Suspended Medications 1. Chlorhexidine Gluconate 0.12% Mucous Mem: 15 mL Topical Morning andEvening2. Hydrocortisone: 10 mg Oral 3. Hydrocortisone: 5 mg Oral Recent Lab Results: Results: I have reviewed these laboratory results: Glucose_POCT Trending View Bxskzx57-Jdp-4135 11:44:00 22-Mar-2018 07:52:00 21-Mar-2018 21:58:00Glucose-DUOB732 H 183 H 220 H Complete Blood Count 21-Mar-2018 19:42:00 ResultValueWhite Blood Cell Count 9.4Nucleated Erythrocyte Count 0.0Red Blood Cell Count 4.35 LHGB 13.5HCT 40.8 LMCV 94MCHC 33.1PLT 241RDW- CV 12.9 Renal Function Panel 21-Mar-2018 19:42:00 ResultValueGlucose, Serum 257 HNA 139K 4.5CL 102Bicarbonate, Serum 24Anion Gap, Serum 18BUN 29 HCREAT 1.66 HGFR-Non 41 AGFR- 50 ACalcium, Serum 9.2Phosphorus, Serum 4.0ALB 3.8 Prostate SpecificAntigen 21-Mar-2018 19:42:00 ResultValueProstate Specific Antigen <0.10 Heparin assay, UFH 21-Mar-2018 19:41:00 ResultValueHeparin assay, UFH 0.3 Radiology Results: Results: Conclusion:[facility] LAB PVR (Arterial Physiologic) BROOKS [Mar 20 2018 11:27AM] Conclusion:[facility] LAB PVR (Arterial Physiologic) BROOKS[Mar 20 2018 11:14AM] Conclusion:[facility] Pre-op Vessel Vein Mapping [Mar 20 2018 11:08AM] Conclusion: [facility] Arterial Duplex Ultrasound [Mar 20 2018 11:01AM] Conclusion:[facility] LAB Carotid Artery Duplex Ultrasound [Mar 20 2018 10:56AM] Impression: Suspected periapical abscess right maxillary premolar. Xray Orthopantogram [Mar 19 2018 3:30PM] Conclusion:CONCLUSIONS: 1. The left ventricular systolic function is normal with a 60-65% estimatedejection fraction. 2. Spectral Doppler shows an impaired relaxation pattern of left ventriculardiastolic filling.QUANTITATIVE DATA SUMMARY:2D MEASUREMENTS: NormalRanges:LAs: 3.10 cm (2.7-4.0cm)IVSd: 1.84 cm (0.6-1.1cm)LVPWd: 0.96 cm (0.6-1.1cm)LVIDd: 3.51 cm (3.9-5.9cm)LVIDs: 2.33 cmLV Mass Index: 79.3 g/m2LV % FS 33.6 %LA VOLUME: Normal Ranges:LA Vol A4C: 42.8 ml (22+/-6mL/m2)LA Vol A2C: 36.3 mlLA Vol BP: 44.5 mlLA Vol Index A4C: 19.6ml/m2LA Vol Index A2C:16.6 ml/m2LA Vol Index BP: 20.4 ml/m2LA Area A4C: 17.4cm2LA Area A2C: 14.2 cm2LA Major Paxton A4C: 6.0 cmLA Major Paxton A2C: 4.7 cmLA Volume Index: 15.2 ml/m2RA VOLUME BY A/L METHOD: Normal Ranges:RA Area A4C: 12.8 cz6T-IUPK MEASUREMENTS: Normal Ranges:Ao Root: 2.90 cm (2.0-3.7cm)LAs: 3.80 cm (2.7-4.0c m)AORTA MEASUREMENTS: Normal Ranges:Ao Sinus, d: 3.45 cm (2.1-3.5cm)Ao STJ, d: 2.85 cm (1.7-3.4cm)Asc Ao, d: 3.40 cm (2.1-3.4cm)LV SYSTOLIC FUNCTIONBY 2D PLANIMETRY (MOD): Normal Ranges:EF-A4C View: 59.9 % (>55%)EF-A2C View: 66.3 %EF- Biplane: 63.4 %LV DIASTOLIC FUNCTION: Normal Ranges:MV Peak E:0.60 m/s (0.7-1.2 m/s)MV Peak A: 0.71 m/s (0.42-0.7 m/s)E/A Ratio: 0.84 (1.0-2.2)MV e' 0.05 m/s (>8.0)MV lateral e' 0.05 m/sMV medial e' 0.05 m/sMV A Dur: 148.00 msecE/e' Ratio: 11.92 (<8.0)a' 0.14 m/sMV DT: 261 msec (150-240 msec)PulmV Sys Michele: 51.80 cm/sPulmV Pablo Michele: 29.80 cm/sPulmV S/D Michele: 1.70PulmV A Revs Michele: 31.50 cm/sPulmV A Revs Dur: 116.00 msecMITRAL VALVE: NormalRanges:MV DT: 261 msec (150-240msec)AORTIC VALVE: Normal Ranges:AoV Vmax: 1.02 m/s (<1.7m/s)AoV Peak P.2 mmHg (<20mmHg)LVOT Max Michele: 0.87 m/s (<1.1m/s)LVOT VTI: 17.70 cmRIGHT VENTRICLE:RV 1 3.22 cmRV 2 2.33 cmRV 3 7.96 cmTAPSE: 19.1 mmRV s' 0.13 m/sTRICUSPID VALVE/RVSP: Normal Ranges:IVC Diam: 2.03 cmPULMONIC VALVE: Normal Ranges:PV Max Michele: 1.0 m/s (0.6-0.9m/s)PV Max P.2 mmHgPulmonary Veins:PulmV A Revs Dur: 116.00 msecPulmV A Revs Michele: 31.50 cm/sPulmV Pablo Michele: 29.80 cm/sPulmV S/D Michele: 1.70PulmV Sys Michele: 51.80 cm/s Echocardiogram [Mar 19 2018 2:30PM] Impression: 1. No radiographic evidence of acute cardiopulmonary process. Xray Chest 2 View PA + Lateral [Mar 19 2018 2:19PM] Impression: 1. No radiographic evidence of acute cardiopulmonary process. Xray Chest 1 View [Mar 19 2018 9:20AM] Assessment and Plan:Assessment:67 yo M with HTN, DLD, T2DM, Addisson's, GERD, prostate ca s/p prostatectomy uh2612, hypothyroidism, psoriasis, and most recently diagnosed with a PE andmultivessel CAD transferred to medicine at [facility] from [facility] on03/18 for CABG eval. Multiple PEs- addison. Segmental and subsegmental PE on CT- Repeat TTE --> No Right dilation or strain- 2V CXR --> Noradiographic evidence of acute cardiopulmonary process.- Appreciate Pulmonary assistance- c/w Heparin gtt- Plan for IVC Filter Friday in IR- Delay CABG for 1 week Tentative plan with Dr. Gaston Friday 03/30-- plan for 3- 6 months anticoagulation (1st episode unprovoked PE)- c/s [...] 255, 269, 220- Lantus 20 units x1 [place]'s disease- Reduce fludrocortisone to 0.05 mg MWFSun- 03/20 Reduce hydrocortisone to 10mg/5mg/2.5mg GERD- Continue home PPI HTN- Holding LAUREN- 03/20 Increase Carvedilol to 12.5mg BID- 120/57 - 167/93 overpast 24 hours DLD- Atorva 40mg- lipids 155/44/82/141 HypothyroidismTSH 2.51- Continue home levothyroxine TIFFANI- MICHELLE- Adm Creatinine 1.42- Today 1.66 [1.38, 1.36] GI ppx: on PPICode status: Full Electronic Signatures:Vito Patino (HEALTH AND SAFETY TECH-IRON WORKER APPRENTICE) (Signed 22-Mar-2018 14:13)Authored: Service, Subjective Data, Objective Data, Assessment and Plan,Signature/Cosignature/AttestationSPatience decker) (Signed 22-Mar-2018 15:25)Co-Signer: Service, Subjective Data, Objective Data, Assessment and Plan,Signature/Cosignature/Attestation Last Updated: 22-Mar-2018 15:25 by Patience Sow)[facility] ClinicDaily Progress Note-Endocrinologyon 84-01-9984Tsivtqp mass concConsult Type: subsequent visit/care Service: Endocrinology Subjective Data:DON ELKINS is a 67 yearold Male who is Hospital Day # 5. No acute events.IVC filter placement tomorrow. Objective Data: Objective Information:T ZNFAJxP6Kkxyb39.37889725/8895%Date/Time03/22 12: 12: 12: 12:00 03/22 12:00Range(36C - 36.4C ) (73 - 83 ) (17 - 18 ) (120 - 188 )/ (57 - 99 ) (93% -99% ) Pain with Activity reported at 03/21 15:25: 0Pain at Rest reported at 03/21 15:25: 0 Physical Exam: Constitutional: Well developed, awake/alert/oriented x3, no distress, alert andcooperative, Patel facies, central obesity, supraclavicular fat pasEyes: PERRL, EOMI, clear scleraRespiratory/Thorax: Diffuse decreaseair entry bilaterallyCardiovascular: S1-S2 regular, no murmursGastrointestinal: Nondistended, soft,non-tender, +BS, no straiePsychological: Appropriate mood and behaviorSkin: warm and dry, acanthosis nigricans Medication: Medications: Continuous Medications 1. Heparin 25,000 units/ D5W 250 mL Infusion: 1000 units/hr IntraVenous Scheduled Medications 1. Aspirin Chewable: 81 mg Oral Daily2. Atorvastatin: 40 mg Oral Daily3. Carvedilol: 12.5 mg Oral 2 Times a Day4. Citalopram: 20 mg Oral Daily5. Docusate 50 mg - Senna 8.6 m tablet(s) Oral 2 Times a Day6. Fludrocortisone: 0.05 mg Oral 7. Heparin (Repeat Bolus) Injectable: 4000 unit(s) IntraVenous Push Every 0Zeazw7. Hydrocortisone: 10 mg Oral 9. Hydrocortisone: 5 mg Oral 10. Hydrocortisone: 2.5 mg Oral 11. Insulin Glargine (Lantus) Injectable: 20 unit(s) SubCutaneous Once12. Insulin Lispro Mild Corrective Scale: unit(s) SubCutaneous 3 Times a DayBefore Meals13. Levothyroxine: 150 microgram(s) Oral Daily14. Mupirocin 2%: 0.5 application(s) Each Nostril 2 Times a Day15.Pantoprazole: 40 mg Oral Daily16. Polyethylene Glycol: 17 gram(s) Oral Daily17. rOPINIRole: 2 mg Oral 3 Times a Day18. Sodium Chloride 0.65% Nasal [place]: 2 spray(s) Each Nostril 2 Times aDay PRN Medications 1. Dextrose 50% in Water Injectable: 25 gram(s) IntraVenousPush Every 98Hmbmmxt0. Glucagon Injectable: 1 mg IntraMuscular Every 15 Minutes Currently SuspendedMedications 1. 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 [place]'s Disease-- Decrease Fludrocortisone to 0.05 mg 4 times weekly ( and friday)-- Continue Hydrocortisone to 10-5-2.5 mg at 1ou-26mz-0gq DAILY-- On day of IVC filter placement, please give hydrocortisone 30mg PO in themorning, 10mg at noon and 5mg at 5pm and keep fludrocortisone 0.05mg pleasemake sure that patient receive his HC and fludrocortisone before his procedure-On the day of the surgery please give Hydrocortisone 30 mg by mouth once at 5am , checkthe cortisol level at 7 am , then continue Hydrocortisone as 25 mgIV q6hrs thereafter as of 8 am. Please keep endo team informed about the dateof the surgery please. 2. T2DM-- Give lantus 20units once now-- Continue ISS 2 units for every 50 above 150-- POCT AC and qHs-- Hypoglycemia protocol--Diabetic diet -will follow Please page with questions [phone] Patient seen and examined, plan discussed with Dr Quevedo Signature/Cosignature/Attestation:Attending AttestationI saw and evaluated the patient. I personally obtainedthe judge and critical portions of the history and physical exam or wasphysically present for judge and critical portions performed by theresident/fellow. I reviewed the resident/fellows documentation and discussedthe patient with the resident/fellow. I agree with the resident/fell owsmedical decision making as documented in the residents note.I personally evaluated the patient (as noted in the above attestation) [id number] Electronic Signatures:Starr Quevedo) (Signed 23-Mar-2018 12:38)Authored: Signature/Cosignature/AttestationCo-Signer: Service, Subjective Data, Objective Data, Assessment and Plan,Signature/Cosignature/AttestationJob Torres (Resident)) (Signed 22-Mar-2018 12:13)Authored: Service, Subjective Data, Objective Data, Assessment and Plan,Signature/Cosignature/Attestation Last Updated: 23-Mar-2018 12:38 by Starr Quevedo)[facility] ClinicGLUCOSE-POCTon 30-28-6521Aygrkal mass tfsm672 mg/dHMdat67 - [address] [place] [address] Comment on above:Performed By: #### LIPID ####[id number], [place] [address]Pnjxdfa mass vnsu343 mg/pXCegs62 - [address] [place], [place] [address]Comment on above:Performed By: #### LIPID ####[id number] [place] [address] Glucose mass oaic154 mg/oYOoya25 - [address] [place], [place] [address]Comment on above:Performed By: #### LIPID ####[id number] [place] [address] Glucose mass gpmy317 mg/jMZoro3522 Wilson StreetComment on above:Performed By: #### LIPID ####[id number] [place] [address] HEPARIN ASSAY,UFHon 82-17-8797AWDJFHZ ASSAY,UFH0.2 IU/mLNormalHealthSouth - Rehabilitation Hospital of Toms RiverComment on above:Result Comment: The therapeutic reference range for UFH may be either 0.3-0.6 IU/mL or 0.3-0.7 IU/mL based on the clinical setting for anticoagulant therapy and the associated nomogram used. For heparin dosing guidelines based on clinical scenario and Heparin Assay results, please refer to local Pharmacy and the [facility] Guidelines for Anticoagulation therapy available on the [facility] intranet at:[email or web address]_Guide lines_for_Anticoagu.aspxPerformed By: #### LIPID ####[id number], [place] [address]QLRYZJES SPECIFIC AGon 73-61-1897Ipoqmbnk specific Ag mass concng/mLNormal0.00 - 4.00[facility] Toms RiverComment on above: Result Comment: The FDA requires that the method used for PSAassay be reported to the physician. Valuesobtained with different assay methods must notbe used interchangeably. uses the ADVIACentaur PSA method, which is a sandwichimmunoassay using chemiluminescence forquantitation. The assay is appr renetta formeasurement of prostate-specific antigen (PSA)in serum and may be used in conjunction withadigital rectal examination in men 50 yearsand older as an aid in detection of prostatecancer.Performed By: #### LIPID ####[id number], [place] [address]XLPYN FUNCTION PANELon 76-16-6318Xajonfh mass conc 3.8 g/dLNormal3.4 - 5.0[facility] Toms RiverComment on above:Performed By: #### RENAL ####[id number], [place] [address]Vmypy gap 3 molar conc18 mmol/KWreckv10 - 20[facility] Toms RiverComment on above:Performed By: #### RENAL ####[id number], [place] [address]Talwoqx mass conc9.2 mg/dLNormal8.6 - 10.6[facility] Toms RiverComment on above:Performed By: #### RENAL ####[id number], [place] [address]Ezyowxgr molar vixm784 mmol/EOmocde54 - 107[facility] Toms RiverComment on above:Performed By: #### RENAL ####[id number], [place] [address]Pldydnvkhd mass conc1.66 mg/dLHigh0.50 - 1.30[facility] Toms RiverComment on above:Performed By: #### RENAL ####[id number], [place] [address]IHX-MESAXWW AM.50 mL/min/1.07n9Tvmaoaoq>60[facility] Toms RiverComment on above:Result Comment: CALCULATIONS OF ESTIMATED GFR ARE PERFORMED USING THE MDRD STUDY EQUATION FOR THE IDMS-TRACEABLE CREATININE METHODS. CLIN CHEM 2007;53:766-72 Performed By: #### RENAL ####[id number], [place] [address]NVI-OAA AM.41 mL/min/1.15p0Iikivzlb>60[facility] Toms RiverComment on above:Performed By: #### RENAL ####[id number] [place] [address] Glucose mass ggfs964 mg/eDLqrn19 - 99[facility] Toms RiverComment on above:Performed By: #### RENAL ####[id number], [place] [address]TXJ5 molar conc (Bld)24 mmol/NEfxnrq27 - 32[facility] Toms RiverComment on above:Performed By: #### RENAL ####[id number] [place] [address] Phosphate mass conc4.0 mg/dLNormal2.5 - 4.9[facility] Toms RiverComment on above:Result Comment: The performance characteristics of phosphorus testing in heparinized plasma have been validated by the individual laboratory site where testing is performed. Testing on heparinizedplasma is not approved by the FDA; however, such approval is not necessary.Performed By: #### RENAL ####[id number], [place] [address]Ovnldwpiv molar conc4.5 mmol/L Normal3.5 - 5.3[facility] Toms RiverComment on above:Performed By: #### RENAL ####[id number], [place] [address]Kzpdwd molar frkr037 mmol/L Qvteqi902 - 145[facility] Toms RiverComment on above:Performed By: #### RENAL ####[id number], [place] [address]Args nitrogen mass conc29 mg/dLHigh6 - 23[facility] Toms RiverComment on above:Performed By: #### RENAL ####[id number], [place] [address]OLEM + SCREENon 23-25-6996ZWN TYPEANoVail Health HospitalComment on above:Performed By: #### LIPID ####[id number], [place] [address]IP TYPEPositiveNoVail Health HospitalComment on above:Performed By: #### LIPID ####[id number], [place] [address]Seczd Progress Note-Cardiologyon 08-82-8618Pphszua mass concService: Cardiology Subjective Data:DON ELKINS is a 67 [...] episode unprovoked PE) Objective Data: Objective Information:T [id number]/7997%Date/Time03/21 12: 12: 12: 12:00 03/21 12:00Range(36C - 36.5C ) (78 - 90 ) (18 - 21 ) (134 - 171 )/ (73 - 102 ) (96%- 97% ) Pain withActivity reported at 03/21 8:30: 0Pain at Rest reported at 03/21 8:30: 0 Icjwqlf03/3 4:19: Weight in kg (Weight (kg)) 108.7105/21 4:19: Weight in lbs ((lbs)) 239.6 Physical Exam: Constitutional: Resting in bed, NADHead/Neck: No JVDRespiratory/Thorax: CTABCardiovascular: RRR, S1 D5Iwgotkqaihwfzzpa: soft, NT/NDExtremities: No edemaNeurological: alert and oriented l8Iplocogwrfulu: Appropriate mood and behaviorSkin: psoriasis plaque over elbows and knees; otherwise warm and dry Medication: Medications:Continuous Medications 1. Heparin 25,000 units/ D5W 250 mL Infusion: 1000 units/hr IntraVenous Scheduled Medications 1. Aspirin Chewable: 81 mg Oral Daily2. Atorvastatin: 40 mg Oral Daily3. Carvedilol: 12.5 mg Oral 2 Times a Day4. Cit alopram: 20 mg Oral Daily5. Docusate 50 mg - Senna 8.6 m tablet(s) Oral 2 Times a Day6. Fludrocortisone: 0.05 mg Oral Daily7. Heparin (Repeat Bolus) Injectable: 4000 unit(s) IntraVenous Push Every 4Wgcll6. Hydrocortisone: 10 mg Oral 9. Hydrocortisone: 5 [...] Times a Day17. Sodium Chloride 0.65% Nasal [place]: 2 spray(s) Each Nostril 2 Times aDay PRN Medications 1. Dextrose 50% in Water Injectable: 25 gram(s) IntraVenous Push Every 58Ozheygf6. Glucagon Injectable: 1 mg IntraMuscular Every 15 Minutes Recent Lab Results: Results: I have reviewed these laboratory results: Glucose_POCT Trending View Vzvbyz26-Npm-5600 12:06:00 21-Mar-2018 08:37:00Glucose-WHLW980 H 192 H Heparin assay, UFH Trending View Yaytsz22-Ibz-6162 07:10:00 21-Mar-2018 03:30:00 20-Mar-2018 22:05:00Heparin assay, UFH0.4 0.4 0.2 Complete Blood Xhhsr44-Ghn-7565 19:09:00 ResultValueWhite Blood Cell Count 11.0Nucleated Erythrocyte Count 0.0Red BloodCell Count 4.48 LHGB 14.0HCT 40.8 LMCV 91MCHC 34.3PLT 252RDW-CV 13.1 Renal Function Panel 20-Mar-2018 19:09:00 ResultValueGlucose, Serum 201 HNA 138K 4.0CL 102Bicarbonate, Serum 24Anion Gap, Serum 16BUN 22CREAT 1.38 HGFR-Non 51 AGFR- 62Calcium, Serum 9.0Phosphorus, Serum 4.3ALB 3.9 Radiology Results: Results: Conclusion:VASC LAB PVR (Arterial Physiologic) BROOKS [2017 11:27AM] Conclusion:VASC LAB PVR (Arterial Physiologic) BROOKS [Mar 20 2018 11:14AM] Conclusion:VASC LAB Pre-op Vessel Vein Mapping [Mar 20 2018 11:08AM] Conclusion:VASC LAB Arterial Duplex Ultrasound [Mar 20 2018 11:01AM] Conclusion:VASC LAB Carotid Artery Duplex Ultrasound [Mar 20 2018 10:56AM] Im pression: Suspected periapical abscess right maxillary premolar. Xray Orthopantogram [Mar 19 2018 3:30PM] Conclusion:CONCLUSIONS: 1. The left ventricular systolic function is normal with a 60-65% estimatedejection fraction. 2. Spectral Doppler shows an impaired relaxation pattern of left ventriculardiastolic filling.QUANTITATIVE DATA SUMMARY:2D MEASUREMENTS: Normal Ranges:LAs: 3.10 cm (2.7-4.0cm)IVSd: 1.84 cm (0.6-1.1cm)LVPWd: 0.96 cm (0.6- 1.1cm)LVIDd: 3.51 cm (3.9-5.9cm)LVIDs: 2.33 cmLV Mass Index: 79.3 g/m2LV % FS 33.6 %LA VOLUME: Normal Ranges:LA Vol A4C: 42.8 ml (22+/-6mL/m2)LA Vol A2C: 36.3 mlLA Vol BP: 44.5 mlLA Vol Index A4C: 19.6ml/m2LA Vol Index A2C: 16.6 ml/m2LA Vol Index BP: 20.4 ml/m2LA Area A4C: 17.4cm2LA Area A2C: 14.2 cm2LA Major Paxton A4C: 6.0 cmLA Major Paxton A2C: 4.7 cmLA Volume Index: 15.2 ml/m2RA VOLUME BY A/L METHOD: Normal Ranges:RA Area A4C: 12.8 ln7F-JABW MEASUREMENTS: Normal Ranges:Ao Root: 2.90 cm (2.0-3.7cm)LAs: 3.80 cm (2.7-4.0cm)AORTA MEASUREMENTS: Normal Rang es:Ao Sinus, d: 3.45 cm (2.1-3.5cm)Ao STJ, d: 2.85 cm (1.7-3.4cm)Asc Ao, d: 3.40 cm (2.1-3.4cm)LV SYSTOLIC FUNCTIONBY 2D PLANIMETRY (MOD): Normal Ranges:EF-A4C View: 59.9 % (>55%)EF-A2C View: 66.3%EF-Biplane: 63.4 %LV DIASTOLIC FUNCTION: Normal Ranges:MV Peak E: 0.60 m/s (0.7-1.2 m/s)MV Peak A:0.71 m/s (0.42-0.7 m/s)E/A Ratio: 0.84 (1.0-2.2)MV e' 0.05 m/s (>8.0)MV lateral e' 0.05 m/sMV med ial e' 0.05 m/sMV A Dur: 148.00 msecE/e' Ratio: 11.92 (<8.0)a' 0.14 m/sMV DT: 261 msec (150-240 msec)PulmV Sys Michele: 51.80 cm/sPulmV Pablo Michele: 29.80 cm/sPulmV S/D Michele: 1.70PulmV A Revs Michele: 31.50 cm/sPulmV A Revs Dur: 116.00 msecMITRAL VALVE: NormalRanges:MV DT: 261 msec (150-240msec)AORTIC VALVE: Normal Ranges:AoV Vmax: 1.02 m/s (<1.7m/s)AoV Peak P.2 mmHg (<20mmHg)LVOT Max Michele: 0.87 m/s (<1.1m/s)LVOT VTI: 17.70 cmRIGHT VENTRICLE:RV 1 3.22 cmRV 2 2.33 cmRV 3 7.96 cmTAPSE: 19.1 mmRV s' 0.13 m/sTRICUSPID VALVE/RVSP: Normal Ranges:IVC Diam: 2.03 cmPULMONIC VALVE: Normal Ranges:PV Max Michele: 1.0 m/s (0.6-0.9m/s)PV Max P.2 mmHgPulmonary Veins:PulmV A Revs Dur: 116.00 msecPulmV ARevs Michele: 31.50 cm/sPulmV Pablo Michele: 29.80 cm/sPulmV S/D Michele: 1.70PulmV Sys Michele: 51.80 cm/s Echocardiogram [Mar 19 2018 2:30PM] Impression: 1. No radiographic evidence of acute cardiopulmonary process.Xray Chest 2 View PA + Lateral [Mar 19 2018 2:19PM] Impression: 1. No radiographic evidence of acutecardiopulmonary process. Xray Chest 1 View [Mar 19 2018 9:20AM] Assessment and Plan:Assessment:67 yoM with HTN, DLD, T2DM, Addisson's, GERD, prostate ca s/p prostatectomy [id number], hypothyroidism, psoriasis, and most recently diagnosed with a PE andmultivessel CAD transferred to medicine at [facility] from [facility] on03/18 for CABG eval. Multiple PEs- addison. Segmental and subsegmental PE on CT- Repeat TTE --> No Right dilation or strain- 2V CXR --> No radiographic evidence of acute ca rdiopulmonary process.- Appreciate Pulmonary assistance- c/w Heparin gtt- [...] for CABG with Dr. Gaston week of 03/30s/p recent root canal- orthopantogram T2DM- Holding home Metformin- SSI and hypoglycemia protocol- A1C 7.9%- BS 195, 234, 243, 192- likely to improved with reducing Hydrocortisone dose [place]'s disease- Reduce fludrocortisone to 0.05 mg daily- Reduce hydrocortisone to 10mg/5mg/2.5mg- Follow Endocrine recs when NPO GERD- Continue home PPI HTN- Holding LAUREN- 159/83 - 171/102 over past 24 hours- 03/20 Increase Carvedilol to 12.5mg BID- Monitor BP with reducing Florinef dose DLD- Atorva 40mg- bsoclp364/44/82/141 HypothyroidismTSH 2.51- Continue home levothyroxine GI ppx: on PPICode status: Full Electronic Signatures:Sukumar, Vito A (HEALTH AND SAFETY TECH-IRON WORKER APPRENTICE) (Signed 21-Mar-2018 14:04)Authored: Service, Subjective Data, Objective Data, Assessment and Plan,Signature/Cosignature/AttestationSPatience decker) (Signed 22-Mar-2018 13:55)Co-Signer: Service, Subjective Data, Objective Data, Assessment and Plan,Signature/Cosignature/Attestation Last Updated: 22-Mar-2018 13:55 by Patience Sow)[facility] ClinicDaily Progress Note-Endocrinologyon 20-78-4308Lcjkcge mass concConsult Type: subsequent visit/care Service: Endocrinology Subjective Data:DON ELKINS is a 67 yearold Male who is Hospital Day # 4. Patient is doing okay today. Mo Complaints.His CABG was postponed.Possible IVC filter early next week. Objective Data: Objective Information:T LRDFJjB0Tczji93.64369456/8197%Date/Time03/21 8: 8: 8: 8: 8:00Range(36.3C - 36.5C ) (78 - 90 ) (18 -21 ) (134 - 171 )/ (73 - [...] dry, acanthosis nigricans Medication: Medications: Continuous Medications 1. Heparin 25,000 units/ D5W 250 mL Infusion: 1000 units/hr IntraVenous Scheduled Medications 1. Aspirin Chewable: 81 mg Oral Daily2. Atorvastatin: 40 mg Oral Daily3. Carvedilol: 12.5 mg Oral 2 Times a Day4. Citalopram: 20mg Oral Daily5. Docusate 50 mg - Senna 8.6 m tablet(s) Oral 2 Times a Day6. Fludrocortisone: 0.05 mg Oral Daily7. Heparin (Repeat Bolus) Injectable: 4000 unit(s) IntraVenous Push Every 2Jtdid0. Hydrocortisone: 10 mg Oral 9. Hydrocortisone: 5 mg Oral 10. Hydrocortisone: 2.5 mg Oral 11. Insulin Lispro Mild Corrective Scale: unit(s) SubCutaneous 3 Times a DayBefore Meals12. Levothyroxine: 150 microgram(s) Oral Daily13. Mupirocin 2%: 0.5 application(s) Each Nostril 2 Times a Day14. Pantoprazole: 40 mg Oral Daily15. Polyethylene Glycol: 17 gram(s) Oral Daily16. rOPINIRole: 2 mg Oral 3 Times a Day PRN Medications 1. Dextrose 50% in Water Injectable: 25 gram(s) IntraVenous Push Every 85Ikcbqku9. Glucagon Injectable: 1 mg IntraMuscular Every 15 Minutes Recent Lab Results: Results: I have reviewed these laboratory results: Glucose_POCT Trending View Forabw77-Ahm-2610 08:37:00 20-Mar-2018 17:30:00 20-Mar-2018 13:24:00 20-Mar-2018 08:28:00 19-Mar-2018 21:30:00 19-Mar-2018 18:25:00Glucose-MRFE256 H 243 H 234 H 195 H 308 H 226 H Complete Blood Count Trending View Uxgiuu61-Nyr-2046 19:09:00 19-Mar-2018 17:57:00White Blood Cell Count11.0 10.8Nucleated Erythrocyte Count0.0 0.0Red Blood Cell Count4.48 L 4.32 LHGB14.0 13.4 LHCT40.8 L 39.6 LMCV91 26MASY31.3 33.5NPY303 259RDW-CV13.1 13.0 Renal Function Panel Trending View Vsrfna15-Xba-3684 19:09:00 33-Rkx-662279:57:00Glucose, Itmwg230 H 229 WYP318 137K4.0 3.0AG075 102Bicarbonate, Serum24 23Anion Gap, Serum16 21ZTQ21 25 HCREAT1.38 H 1.36 HGFR- Non Zxrecmpl84 A 52 AGFR- Swbiesav45 63Calcium, Serum9.0 9.4Phosphorus, Serum4.3 3.6ALB3.9 3.9 Assessment and Plan:Assessment: Mr. Elkins is a 67 yo WMwith no known history of CAD, who has a past medicalhistory of HTN, HLD, T2DM, [place]'s disease, hypothyroidism, COPD, AKASH onCPAP, prostate ca s/p prostatectomy in 2011, and psoriasis who was [facility] at [facility] from [facility] on 03/18 forCABG eval.Endocrineconsulted fr evaluation of [place] disease and treatment periop Patient is o supra- therapeutic doseof HCT 20-0-20 , fludrocortisone 0.1 ,mgdailyPatient has uncontrolled HTN and uncontrolled BS REcs:-Continue Fludrocortisone to 0.05 mg daily- Continue Hydrocortisone to 10-5-2.5 mg at 5ud-49va-4du DAILY-- On day of IVC filter placement, [...] then continue Hydrocortisone as 25 mgIV q6hrs ther eafter as of 8 am. Please keep endo team informed about the dateof the surgery please.-will follow Please page with questions [phone] Patient seen and examined, plan discussed with Dr Quevedo Signature /Cosignature/Attestation:Attending AttestationI saw and evaluated the patient. I personally obtainedthe judge and critical portions of the history and physical exam or wasphysically present for judge andcritical portions performed by theresident/fellow. I reviewed the resident/fellows documentation and discussedthe patient with the resident/fellow. I agree with the resident/fellowsmedical decision making as documented in the residents note.I personally evaluated the patient (as noted in the above attestation) [id number]-Xng-2032 Electronic Signatures:Starr Quevedo) (Signed 23-Mar-2018 12:34)Authored: Signature/Cosignature/AttestationCo-Signer: Service, Subjective Data, Objective Data, Assessment and Plan,Signature/Cosignature/AttestationJob Torres (Resident)) (Signed 21-Mar-2018 11:41)Authored: Service, Subjective Data, Objective Data, Assessment and Plan,Signature/Cosignature/Attestation Last Updated: 23-Mar-2018 12:34 by Starr Quevedo)[facility] ClinicDaily Progress Note-Pulmonologyon 14-94-7831Lvvrt Progress Note-PulmonologyService: Pulmonology Subjective Data:DON ELKINS is a 67 year old Male who is Hospital Day # 4. [place] tional Information:Pt denies any active complaints. has been ambulatory in [facility] w/o CP/SOB.Previously, on occassion would have bleeding gums, but has not noticed anysince starting heparin. Reportscough, no sputum production. Objective Data: Objective Information:T [id number]/7997%Rodrigo e/Time03/21 12: 12: 12: 12: 12:00Range(36C - 36.5C ) (78 - 90 ) (18 - 21 ) (134 - 171 )/ (73 - 102 ) (96%- 97% ) Pain with Activity reported at 03/21 8:30: 0Pain at Rest reported at 03/21 8:30: 0T ILSCFlI3Cjkqd567170605/7997%Date/Time03/21 12: 12: 12: 12:10/312:00Range(36C - 36.5C ) (78 - 90 ) (18 - 21 ) (134 - 171 )/ (73 - 102 ) (96%- 97% ) Physical Exam:Constitutional: awake, alert, comfortable, following commandsRespiratory/Thorax: Speaking full sentences, normal WOB, B/L cracklesCardiovascular: RRR no GRMGastrointestinal: Obese, S/NT/ND/NABSExtremi ties: Trace B/L LE swellingNeurological: CN 2-12 grossly intact, non- focalPsychological: Normal mood, affectSkin: warm, dry Medication: Medications: Continuous Medications 1. Heparin 25,000 units/ D5W 250 mL Infusion: 1000 units/hr IntraVenous Scheduled Medications - 1. Aspirin Chewable: 81 mg Oral Daily2. Atorvastatin: 40 mg Oral Daily3. Carvedilol: 12.5 mg Oral 2 Times a Day4. Citalopram: 20 mg Oral Daily5. Docusate 50 mg - Senna8.6 m tablet(s) Oral 2 Times a Day6. Fludrocortisone: 0.05 mg Oral Daily7. Heparin (Repeat Bolus) Injectable: 4000 unit(s) IntraVenous Push Every 4Ghrbw0. Hydrocortisone: 10 mg Oral 9. Hydrocortisone: 5 mg Oral 10. Hydrocortisone: 2.5 mg Oral 11. Insulin Lispro Mild Corrective Scale: unit(s) SubCutaneous 3 Times a DayBefore Meals12. Levothyroxine: 150 microgram(s) Oral Daily13. Mupirocin 2%: 0.5 application(s) Each Nostril 2 Times a Day14. Pantoprazole: 40 mg Oral Daily15. Polyethylene Glycol: 17 gram(s) Oral Daily16. rOPINIRole: 2 mg Oral 3 Times a Day PRN Medications 1. Dextrose 50% in Water Injectable: 25 gram(s) IntraVenous Push Every 69Xxgletg5. Glucagon Injectable: 1 mg IntraMuscular Every 15 Minutes Recent Lab Results: Results: I have reviewed these laboratory results: Glucose_POCT Trending View Otxetj34-Dwb-9430 12:06:00 21-Mar-2018 08:37:00Glucose-HTGW231 H 192 H Heparin assay, UFH Trending View Pkgxor29-Zun-8194 07:10:00 21-Mar-2018 03:30:00Heparin assay, UFH0.4 0.4 Assessment and Plan:Assessment:67 years old male patient with PMHx of former smoker, prostate ca s/pprostatectomy in 2011, multi vessels CAD, Hypertension, hyperlipidemia,DLD,T2DM, Addisons, GERD, hypothyroidism, psoriasis with multivessels coronarydisease with acute pulmonary team for recent PE (03/15/18). Now patient isasymptomatic(denies for chest pain, dizziness, SOB, palpitation), maintainingsaturation on rom air.His PESI score: 107 CT PE: showed addison. Segmentaland subsegmental PEEcho: EF 55-60%, impaired relaxation. Normal RV size/function IMPRESSIONS:- Unprovoked addison. Segmental & subsegmental PE. Sub-massive- Multi CAD RECOMMENDATIONS:- On RA - start saline nasal rinses- Obtain ambulatory oximetry and titrate oxygen to SpO2 > 88%- Continue full an ticoagulation with heparin infusion- Recommend for IVC filter [...] Case seen, examined and discussed with Dr. Kramerase call with questions [phone] Signature/Cosignature/Attestation:Attending AttestationI saw and evaluated the patient. I personally obtainedthe judge and critical portions of the history and physical exam or wasphysically present for judge and critical portions performed by theresident/fellow. I reviewed the resident/fellows documentation and discussedthe patient with the resident/fellow. I agree with the resident/fellowsmedical decision making as documented in the residents note.I p ersonally evaluated the patient (as noted in the above attestation) [id number] Electronic Signatures:Angie Fuentes) (Signed 16-Nov-2018 14:11)Authored: Signature/Cosignature/AttestationCo-Signer: Assessment and Plan, Signature/Cosignature/AttestationSJoseph gary (Fellow)) (Signed 21-Mar-2018 13:00)Authored: Service, Subjective Data, Objective Data, Assessment and Plan,Signature/Cosignature/Attestation Last Updated: 03-Apr-2018 14:11 by Angie Fuentes)[facility] ClinicGLUCOSE-POCTon 03-21-2018 Glucose mass fjwj389 mg/yYYhfj2222 Wilson StreetComment on above:Performed By: #### RENAL ####[id number] [place] [address] Glucose mass bfla639 mg/qABnbg6022 Wilson StreetComment on above:Performed By: #### RENAL ####[id number] [place] [address] Glucose mass uhyr585 mg/dDVldc1222 Wilson StreetComment on above:Performed By: #### RENAL ####[id number] [place] [address] Glucose mass sybh883 mg/zBGuvw8622 Wilson StreetComment on above:Performed By: #### RENAL ####[id number] [place] [address] HEPARIN ASSAY,UFHon [id number] ASSAY,UFH0.3 IU/mLNCook HospitalComment on above:Result Comment: The therapeutic reference range for UFH may be either 0.3-0.6 IU/mL or 0.3-0.7 IU/mL based on the clinical setting for anticoagulant therapy and the associated nomogram used. For heparin dosing guidelines based on clinical scenario and Heparin Assay results, please refer to local Pharmacy and the [facility] Guidelines for Anticoagulation therapy available on the [facility] intranet at:[email or web address]/Pharmacy/Pages/[facility]_Guide lines_for_Anticoagu.aspxPerformed By: #### RENAL ####[id number], [place] [address]TYZWZZV ASSAY,UFH0.4 IU/[facility] CenterComment on above:Result Comment: The therapeutic reference range for UFH may be either 0.3-0.6 IU/mL or 0.3-0.7 IU/mL based on the clinical setting for anticoagulant therapy and the associated nomogram used. For heparin dosing guidelines based on clinical scenario and Heparin Assay results, please refer to local Pharmacy and the [facility] Guidelines for Anticoagulation therapy available on the [facility] intranet at:[email or web address]/Pharmacy/Pages/[facility]_Guide lines_for_Anticoagu.aspxPerformed By: #### RENAL ####[id number], [place] [address]WKTIRWW ASSAY,UFH0.4 IU/[facility] on above:Result Comment: The therapeutic reference range for UFH may be either 0.3-0.6 IU/mL or 0.3-0.7 IU/mL based on the clinical setting for anticoagulant therapy and the associated nomogram used. For heparin dosing guidelines based on clinical scenario and Heparin Assay results, please refer to local Pharmacy and the [facility] Guidelines for Anticoagulation therapy available on the [facility] intranet at:[email or web address]://[email or web address]/Pharmacy/Pages/[facility]_Guide lines_for_Anticoagu.aspxPerformed By: #### COAGS ####[id number], [place] [address]ONPIQXH ASSAY,UFH0.2 IU/[facility] on above:Result Comment: The therapeutic reference range for UFH may be either 0.3-0.6 IU/mL or 0.3-0.7 IU/mL based on the clinical setting for anticoagulant therapy and the associated nomogram used. For heparin dosing guidelines based on clinical scenario and Heparin Assay results, please refer to local Pharmacy and the [facility] Guidelines for Anticoagulation therapy available on the [facility] intranet at:[email or web address]://[email or web address]/Pharmacy/Pages/[facility]_Guide lines_for_Anticoagu.aspxPerformed By: #### COAGS ####[id number], [place] [address]RAGqy [id number] distribution width Auto Ratio (RBC)13.1 %Eioqef88.5 - 14.5[facility]oms RiverComment on above: Performed By: #### COAGS ####[id number], [place] [address]Ztenhpxdoc Auto Volume Fraction (Bld)40.8 %Low41.0 - 52.0[facility] Toms RiverComment on above:Performed By: #### COAGS ####[id number] [place] [address] Hemoglobin mass conc (Bld)14.0 g/lIEahqss75.5 - 17.5[facility] Comment on above:Performed By: #### COAGS ####[id number] [id number] Auto mass conc (RBC)34.3 g/tJGdbvoo10.0 - 36.0[facility] T[facility] RiverComment on above:Performed By: #### COAGS ####[id number] [id number] Auto Entitic volume (RBC)91 lIVqjilq65 - 100[facility] Toms RiverComment on above:Performed By: #### COAGS ####[id number], [place] [address]Mhcxyrhxm RBC/100 WBC Ratio (Bld)0.0 /100 WBC Normal0.0-0.0[facility] Toms RiverComment on above:Performed By: #### COAGS ####[id number], [place] [address]Msvtfijdb Auto #/vol (Bld)252 10*3/mUVoqlxz343 - 450[facility] Toms RiverComment on above:Performed By: #### COAGS ####[id number], [place] [address]EVJ Auto #/vol (Bld)4.48 x10E12/LLow4.50 - 5.90[facility] Toms RiverComment on above:Performed By: #### COAGS ####[id number], [place] [address]RVY Auto #/vol (Bld)11.0 10*3/uLNormal4.4 - 11.3[facility] Toms RiverComment on above:Performed By: #### COAGS ####[id number], [place] [address]Fskhzzpr Event Note- Regarding PE per Dr. Angel [id number] Event Note-Regarding PE per Dr. Kumarivent:Topic: Regarding PE per Dr. YuDetails:Per Dr. Yu would like IVC Filter placed today 03/20/2018, and ideallystabilization for one week would be optimal.Will advice Dr. Gaston. Provider / Team Contact Information:Provider/Team Contact Info-Pager Number: cardiac surgery [phone] Electronic Signatures:Gilda Tai (HEALTH AND SAFETY TECH-IRON WORKER APPRENTICE) (Signed 20-Mar-2018 11:53)Authored: Event, Provider / Team Contact Information Last Updated: 20-Mar-2018 11:53 by Gilda Tai (HEALTH AND SAFETY TECH-IRON WORKER APPRENTICE)[facility] ClinicConsult-Endocrinologyon [id number]-EndocrinologyService:Service: Endocrinology History of Present Illness:Admission Reason: Transferred for CABG evalHPI:PCP: Sal Hernandez (jaleesa) - Levi Sinha: [place] 67 yo WM with no known history of CAD, who has a past medical history of HTN,HLD, T2DM, [place]'s disease, hypothyroidism, COPD, AKASH on CPAP, prostate spring/p prostatectomy in 2011, and psoriasis who was transferred to [facility] service [facility] on 03/18 for CABG eval. Family history significantfor [place], CT, CHF, HTN, DM and DLD. He quit vxidrsr29 years ago. Has an occasional beer, and denies any drug use. 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 Endocrine Consulted for evalaution of [place] disease and HCt dosing preop. 12 points ROS obtained and negative unless otherwise stated above Outside Hospital cardiac work up:CTA at [place]:Pulmonary emboli involving the bilateral lobar segmental, and severalsubsegmental branches (RUL, RML, RLL, FIDEL, LLL). TTE at [facility] 03/15/18:EF 60-65% PMH: HTN, HLD, T2DM, Brigida's disease, hypothyroidism, COPD, AKASH onCPAP,prostate ca s/p prostatectomy in 2011, psoriasis, remote hepatitis B, priorGERD, lumbar Degenerative disk disease, arthritis, kidney stones (current,small), cataract, plantar fasciitis PSH: prostatectomy 2011, R cataract surgery, cholecystectomy, appendectomy,sinus surgery, vasectomy, bilat carpal tunnel release surgery, ganglion cystremoval from hands, cystoscopy 2 weeks ago for microscopichematuria, rootcanal 2 weeks ago. FHx: CAD/CT, cancer, DM, HTN, migraines, CVA Social: former smoker - quit 20yrs ago; occasional ETOH, no illicits; liveswith spouse in a house NKDA Preadmission HomeMeds:asa 81mg dailycalcium 600+ D3 1 tab dailycitalopram 20mg dailycoenzyme Q10 100mg dailyfludrocortisone 0.1mg dailyhydrocortisone 20mg BIDibuprofen 600mg BIDlevothyroxine 150mcg dailylisinopril 20mg dailymetformin 500mg BIDMV dailyOmega-3 fatty acids fish oil 1 cap dailyomeprazole 40mg dailyropinirole 8mg dailysimvastatin 20mg daily Allergies: No Known Allergies: Objective: Objective Information: T GVBSTkH4Mjoou71.13220170/7496%Date/Time03/20 11: 11: 11: 11: 11:07Range(36.1C - 37.1C ) (67 - 90 ) (16 - 18 ) (119 - 174 )/ (74 - 101 )(95% - 97% )Highest temp of 37.1 C was recorded at 03/20 5:35 Physical Exam: Constitutional: central obesity , moonlike Facies , acanthosis nigricans, skintags , Supraclavicular fat joarp1u3 RRRBP high up to 170 systolic in am treated with hydralazineno proximal myopathydarkening of the skin manly on the handsreflexes nle with no delayed relaxation phase Medications: Medications: Continuous Medications 1. Heparin 25,000 units/ D5W 250 mL Infusion: 1000 units/hr IntraVenous Scheduled Medications ----- 1. Aspirin Chewable: 81 mg Oral Daily2. Atorvastatin: 40 mg Oral Daily3. Carvedilol: 12.5 mg Oral 2 Times a Day4. Citalopram: 20 mg Oral Daily5. Docusate 50 mg - Senna 8.6m tablet(s) Oral 2 Times a Day6. Fludrocortisone: 0.1 mg Oral Daily7. Heparin (Repeat Bolus) Inj ectable: 4000 unit(s) IntraVenous Push Every 6Kcmmk1. Hydrocortisone: 20 mg Oral 2 Times a Day9. Influenza Virus (Inactive) HIGH DOSE Adult Vaccine: 0.5 mL FgtiiIbztdmqdQotn76. Insulin Lispro Mild Corrective Scale: unit(s) SubCutaneous 3 Times a DayBefore Meals11. Levothyroxine: 150 microgram(s) Oral Daily12. Mupirocin 2%: 0.5 application(s) Each Nostril 2 Times a Day13. Pantoprazole: 40 mg Oral Daily14. Polyethylene Glycol: 17 gram(s) Oral Daily15. rOPINIRole: 2 mg Oral 3 Times a Day PRN Medications 1. Dextrose 50% in Water Injectable: 25 gram(s) IntraVenous Push Every 30Ovnotyd5. Glucagon Injectable: 1 mg IntraMuscular Every 15 Minutes Recent Lab Results: Results: I have reviewed these laboratory results: Glucose_POCT Trending View [id number]-8631 08:28:00 19-Mar-2018 21:30:00 19-Mar-2018 18:25:00 19-Mar-2018 13:58:00 19-Mar-2018 08:27:00Glucose-VQSA764 H 308 H 226 H 175 H 172 H Renal Function Panel Trending View [id number] 17:57:00 19-Mar-2018 00:39:00Glucose, Jhohq777 H 206 RBI998 138K3.9 4.7QN479 102Bicarbonate, Serum23 23Anion Gap, Serum16 83HOV16 H 43BKCVQ7.36 H 1.42 HGFR-Non Jueqcboy35 A 50 AGFR- Xkwqnvct06 61Calcium, Serum9.4 9.2Phosphorus, Serum3.6 3.5ALB3.9 4.1 Hepatic Function Panel 19-Mar-2018 00:39:00 ResultValueAspartate Transaminase, Serum 75 HALB 4.1T Bili 0.9Bilirubin, Serum Direct - Conjugated 0.2ALKP 50Alanine Aminotransferase, Serum 103 HT Pro 6.6 Lipid Panel 19-Mar-2018 00:39:00 ResultValueCholesterol, Serum 155 . AGE DESIRABLE BORDERLINE HIGH HIGH 0-19 Y 0 - 169 170 - 199 >/= 200 20-24 Y 0 -189 190 - 224 >/= 225 >24 Y 0 - 199 200 - 239 >/= 240 All ranges are based on fasting sampHDL Cholesterol, Serum 44.5 . AGE VERY LOW LOW NORMAL HIGH 0-19 Y < 35 < 40 40-45 ---- 20-24Y ---- < 40 >45 ---- >24 Y ---- < 40 40-60 >60.Cholesterol/HDL Ratio 3.5 REF VALUESDESIRABLE < 3.4HIGH RISK > 5.0LDL, Level 82 . NEAR BORD AGE DESIRABLE OPTIMAL HIGH HIGH VERY HIGH 0-19 Y 0 - 109 --- 110-129 >/= 130 ---- 20-24 Y 0 - 119 --- 120-159 >/= 160 ---- >24 Y 0-VLDL, Serum 28Triglycerides, Serum 141 . AGE DESIRABLE BORDERLINE HIGH HIGH VERY HIGH 0 D-90 D 19 - 174 ---- ---- ----91 D- 9 Y 0 - 74 75 - 99 >/= 100 ---- 10-19 Y 0 - 89 90 - 129 >/= 130 ----Thyroid Stimulating Hormone, Serum 19-Mar-2018 00:39:00 ResultValueThyroid Stimulating Hormone, Seru m 2.51 Hemoglobin A1C 19-Mar-2018 00:03:00 ResultValueHemoglobin A1C, Level 7.9 Diagnosis of Diabetes-Adults Non-Diabetic: < or = 5.6% Increased risk for developing diabetes: 5.7-6.4% Diagnostic of diabetes: > or = 6.5%. Monitoring of Diabetes Age (y) Therapeutic Goal (%) Adults: >1Estimated Average Glucose 180 Assessment: 67 yo WM with no known history of CAD, who has a past medical hist ory of HTN,HLD, T2DM, [place]'s disease, hypothyroidism, COPD, AKASH on CPAP, prostate spring/p prostatectomy in 2011, and psoriasis who was transferred to [facility] on 03/18 for CABG eval.Endocrine consulted fr evlaution of Brigida disease and treatmentperiop Patient is o supratherapeutic dose of HCT 20-0-20 , fludrocortisone 0.1 ,mgdailyPAtient has uncontrolled HTn and uncontrolled BS REcs:-Please decrease Fludro to 0.05 mg daily-Please change HCtto 10-5-2.5 mg at [id number] DAILY-On the day of the surgery please give HCt 30 mg by mouth once at 5 am , checkthe cortisol level at 7 am , then continue HCt as 25 mg IV q6hrs thereafter asof 8 am. Please keep endo team informed about the date of the surgery please.-will follow Patient seen and examined, plan discussed with Dr Quevedo Signature/Cosignature/Attestation:Attending Bess fuentes evaluated the patient. I personally obtainedthe judge and critical portions of the history and physical exam or wasphysically present for judge and critical portions performed by theresident/fellow. I reviewed the resident/fellows documentation and discussedthe patient with the resident/fellow. I agree with the resident/fellowsmedical decision making as documented in the residents note.I personally evaluated the patient (as noted in the above attestation) [id number] Electronic Signatures:Starr Quevedo) (Signed 21-Mar-2018 10:00)Authored: Signature/Cosignature/AttestationCo-Signer: Service, History of Present Illness, Allergies, Objective,Assessment/Recommendations, Signature/Cosignature/AttestationJob Torres (Resident)) (Signed 20-Mar-2018 11:37)Authored: Service, History of Present Illness, Allergies, ObjectiveHasmukh Stephenson (Resident)) (Signed 20-Mar-2018 16:47)Entered: Objective, Assessment/Recommendations,Signature/Cosignature/AttestationAuthored: Service, History of Present Illness, Allergies, Objective,Assessment/Recommendations, Signature/Cosignature/Attestation Last Updated: 21-Mar-2018 10:00 by Starr Quevedo)[facility] ClinicConsult-Pulmonologyon [id number]-Pulmonology Service:Service: Pulmonology Consult:Consult requested by (Attending Name): Bradford Calderon: Acute PE History of Present Illness:HPI:67 years old male patient with PMHx of former smoker, prostate ca s/pprostatectomy in 2011, multi vessels CAD, Hypertension, hyperlipidemia, DLD,T2DM, Addisons, GERD, hypothyroidism, psoriasis was consulted to pulmonaryteam for recent PE (03/15/18) for further management. Patient was initiallytransfer from OSH for possible CABG. According to patient last two hehas hasintermittent central and left sided chest pain, associated with nausea. 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 He was found to have trop leak which peaked at 2.25, with noEKGchanges. Bedside US was negative for DVT.Now, patient is asymptomatic, chest pain free, on room air with no breathingcomplaints. He denies any recent travels, immobilization abnormal clotting orbleeding history. He denies any palpitations, diaphoresis, near syncopeassociated with his prior chestdiscomfort episodes. Patient has last screeningcolonoscopy 8 years [...] any drug use. 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.12 points ROS obtained and negative unless otherwise stated above Review Family/Social History and ROS:Constitutional: NEGATIVE: Fever, Chills, Weight LossEyes: NEGATIVE: Blurry Vision, Vision Loss/ Change ENMT: NEGATIVE: Nasal Congestion, Throat Pain Respiratory: NEGATIVE: Dry Cough, Productive Cough, Wheezing, Shortness ofBreath Cardiac: NEGATIVE: Chest Pain, Dyspnea on Exertion, Orthopnea, Palpitations Gastrointestinal: NEGATIVE: Nausea, Vomiting,Abdominal Pain Genitourinary: NEGATIVE: Discharge, Frequency Musculoskeletal: NEGATIVE: Decreased ROM, Stiffness Neurological: NEGATIVE: Dizziness, Syncope Psychiatric: NEGATIVE: Anxiety, Sleep Changes Skin: POSITIVE: Rash; NEGATIVE: Pain Endocrine: NEGATIVE: Sweat, Polyuria Hematologic/Lymph: NEGATIVE: Anemia, Petechiae Allergic/Immunologic: NEGATIVE: Itchy/ Teary Eyes, Itching Breast: NEGATIVE:Pain Allergies: No Known Allergies: Objective: Objective Information: T YLICNbE6Nowov77.73288536/9296%Date/Time03/20 11: 14: 11: 14: 11:07Range(36.1C - 37.1C ) (67 - 90 ) (17 -18 ) (119 - 174 )/ (74 - 101 )(95% - 97% )Highest temp of 37.1 C was recorded at 03/20 5:35 PhysicalExam: Constitutional: Well developed, awake/alert/oriented x3, no distress, [...] 2Gastrointestinal: Nondistended, soft, non-tender, no rebound tenderness orguarding,no masses palpable, no organomegaly, +BS, no bruitsMusculoskeletal: ROM intact, no joint swelling, normal strengthExtremities: normal extremities, no cyanosis edema, contusions or wounds, noclubbingNeurological: alert and oriented x3, intact senses, motor, response andreflexes, normal strengthPsychological: Appropriate mood and behaviorSkin: Warm and dry, no lesions, no rashes Medications: Medicat ions: Continuous Medications 1. Heparin 25,000 units/ D5W 250 mL Infusion: 1000 units/hr IntraVenous Scheduled Medications 1. AspirinChewable: 81 mg Oral Daily2. Atorvastatin: 40 mg Oral Daily3. Carvedilol: 12.5 mg Oral 2 Times a Day4. Citalopram: 20 mg Oral Daily5. Docusate 50 mg - Senna 8.6 m tablet(s) Oral 2 Times a Day6. Fludrocortisone: 0.1 mg Oral Daily7. Heparin (Repeat Bolus) Injectable: 4000 unit(s) IntraVenous PushEvery 9Khnrh7. Hydrocortisone: 20 mg Oral 2 Times a Day9. Influenza Virus (Inactive) HIGH DOSE Adult Vaccine: 0.5 mL GbmhfDsitjrjkGwru53. Insulin Lispro Mild Corrective Scale: unit(s) SubCutaneous 3 Times a DayBefore Meals11. Levothyroxine: 150 microgram(s) Oral Daily12. Mupirocin 2%: 0.5 application(s) Each Nostril 2 Times a Day13. Pantoprazole: 40 mg Oral Daily14. Polyethylene Glycol: 17 gram(s) Oral Daily15. rOPINIRole: 2 mg Oral 3 Times a Day PRN Medications 1. Dextrose 50% in Water Injectable: 25 gram(s) IntraVenous Push Every 60Dewvuln3. Glucagon Injectable: 1 mg IntraMuscular Every 15 [...] 41.0HGB, Calculated 13.9 Arterial Potassium 19-Mar-2018 14:32:00 ResultValuePotassium-Le michele 3.7 Blood Gas, Arterial 19-Mar-2018 14:32:00 ResultValuepH, [...] 0.96 cm (0.6-1.1cm)LVIDd: 3.51 cm (3.9-5.9cm)LVIDs: 2.33 cmLVMass Index: 79.3 g/m2LV % FS 33.6 %LA VOLUME: Normal Ranges:LA Vol A4C: 42.8 ml (22+/-6mL/m2)LA VolA2C: 36.3 mlLA Vol BP: 44.5 mlLA Vol Index A4C: 19.6ml/m2LA Vol Index A2C: 16.6 ml/m2LA Vol Index BP: 20.4 ml/m2LA Area A4C: 17.4cm2LA Area A2C: 14.2 cm2LA Major Paxton A4C: 6.0 cmLA Major Paxton A2C: 4.7 cmLA Volume Index: 15.2 ml/m2RA VOLUME BY A/L METHOD: Normal Ranges:RA Area A4C: 12.8 oj5J-YMRS MEASUREMENTS: Normal Ranges:Ao Root: 2.90 cm (2.0-3.7cm)LAs: 3.80 cm (2.7-4.0cm)AORTA MEASUREMENTS: Normal Ranges:Ao Sinus, d: 3.45 cm (2.1-3.5cm)Ao STJ, d: 2.85 cm (1.7-3.4cm)Asc Ao, d: 3.40 cm (2.1-3.4cm)LV SYSTOLIC FUNCTIONBY 2D PLANIMETRY (MOD): Normal Ranges:EF-A4C View: 59.9 % (>55%)EF-A2C View: 66.3 %EF-Biplane: 63.4 %LV DIASTOLIC FUNCTION: Normal Ranges:MV Peak E: 0.60 m/s (0.7-1.2 m/s)MVPeak A: 0.71 m/s (0.42-0.7 m/s)E/A Ratio: 0.84 (1.0-2.2)MV e' 0.05 m/s (>8.0)MV lateral e' 0.05 m/sMV medial e' 0.05 m/sMV A Dur: 148.00 msecE/e' Ratio: 11.92 (<8.0)a' 0.14 m/sMV DT: 261 msec (150-240 msec)PulmV Sys Michele: 51.80 cm/sPulmV Pablo Michele: 29.80 cm/sPulmV S/D Michele: 1.70PulmV A Revs Michele: 31.50 cm/sPulmV A Revs Dur: 116.00 msecMITRAL VALVE: NormalRanges:MV DT: 261 msec (150-240msec)AORTIC VALVE: Normal Ranges:AoV Vmax: 1.02 m/s (<1.7m/s)AoV Peak P.2 mmHg (<20mmHg)LVOT Max Michele: 0.87 m/s (<1.1m/s)LVOT VTI: 17.70 cmRIGHT VENTRICLE:RV 1 3.22 cmRV 2 2.33 cmRV 3 7.96 cmTAPSE:19.1 mmRV s' 0.13 m/sTRICUSPID VALVE/RVSP: Normal Ranges:IVC Diam: 2.03 cmPULMONIC VALVE: Normal Ranges:PV Max Michele: 1.0 m/s (0.6-0.9m/s)PV Max P.2 mmHgPulmonary Veins:PulmV A Revs Dur: 116.00 msecPulmV A Revs Michele: 31.50 cm/sPulmV Pablo Michele: 29.80 cm/sPulmV S/D Michele: 1.70PulmV Sys Michele: 51.80 cm/s Echocardiogram [Mar 19 2018 2:30PM] Impression: 1. No radiographic evidence of acute cardiopulmonary p rocess. Xray Chest 2 View PA + Lateral [...] filter placement at this movement- Possible delay theCABG until the end of next week- Repeat images before surgery- Optimization of cardiac medications-We will continue to follow. Thank you for consult Case seen, examine and discussed with Dr. Yu. Signature/Cosignature/Attestation:Attending AttestationI saw and evaluated the patient. I [...] patient (as noted in the above attestation) [id number]/ Additional FindingsConsulted for unprovoked PE. MOdest clot burden with little/no right heart strain andestimated RV/LV fromCT of 0.8, no oxygen needs [...] 20-Mar-2018 15:56)Entered: Service, History of Present Illness, ReviewFamily/Social History andROS, Allergies, Objective, Assessment/Recommendations,Signature/Cosignature/AttestationSZac guzman (DO) (Signed 21-Mar-2018 11:03)Entered: Signature/Cosignature/Attest ationAuthored: Service, History of Present Illness, Review Family/Social Historyand ROS, Allergies,Objective, Assessment/Recommendations,Signature/Cosignature/Attestation Last Updated: 21-Mar-2018 11:03 by Zac Yu (DO)[facility] Daily Progress Note-Cardiac Surgeryon [id number] mass concConsult Type: subsequent visit/care Service: Cardiac Surgery Subjective Data:DON ELKINS is a 67 year old Male who is Hospital Day # 3. Objective Data: Objective Information:T QNMMKeD0Kyzoc42.65175288/42932%Date/Time03/20 11: 16: 16: 16: 16:53Range(36.1C - 37.1C ) (67 - 90 ) (17 - 20 ) (119 - 174 )/ (74 - 102 )(96% - 97% )Highest temp of 37.1 C was recorded at 03/20 5:35 Pain with Activity reported at 03/20 20:26: 0Pain at Rest reported at 03/20 20:26: 0 Crhlobn13/2 5:35: Weight in kg (Weight (kg)) 108.9105/20 5:35: Weight in lbs ((lbs)) 240 Medication: Medications: Continuous Medications 1. Heparin 25,000 units/ D5W 250 mL Infusion: 1000 units/hr IntraVenous Scheduled Medications 1. Aspirin Chewable: 81 mg Oral Daily2. Atorvastatin: 40 mg Oral Daily3. Carvedilol: 12.5 mg Oral 2 Times a Day4. Citalopram: 20 mg Oral Daily5. Docusate 50 mg - Senna 8.6 m tablet(s) Oral 2 Times a Day6. Heparin (Repeat Bolus) Injectable: 4000 unit(s) IntraVenous Push Every 2Cxmru9. Hydrocortisone: 10 mg Oral 8. Hydrocortisone: 5 mg Oral 9. Hydrocortisone: 2.5 mg Oral 10. Insulin Lispro Mild Corrective Scale: unit(s) Rodriguez bCutaneous 3 Times a DayBefore Meals11. Levothyroxine: 150 microgram(s) Oral Daily12. Mupirocin 2%:0.5 application(s) Each Nostril 2 Times a Day13. Pantoprazole: 40 mg Oral Daily14. Polyethylene Glycol: 17 gram(s) Oral Daily15. rOPINIRole: 2 mg Oral 3 Times a Day PRN Medications 1. Dextrose 50% in Water Injectable: 25 gram(s) IntraVenous Push Every 94Ffjyttc0. Glucagon Injectable: 1 mg IntraMuscular Every 15 Minutes Recent Lab Results: Results:I have reviewed these laboratory results: Complete Blood Count 19-Mar-2018 17:57:00 ResultValueWhite Blood Cell Count 10.8Nucleated Erythrocyte Count 0.0Red Blood Cell Count 4.32 LHGB 13.4 LHCT 39.6 LMCV 92MCHC 33.0SJP288YCT-OL 13.0 Renal Function Panel 19-Mar-2018 17:57:00 ResultValueGlucose, Serum 229 HNA 137K 3.9CL 102Bicarbonate, Serum 23Anion Gap, Serum 16BUN 25 HCREAT 1.36 HGFR-Non 52 AGFR- 63Calcium, Serum 9.4Phosphorus, Serum 3.6ALB 3.9 Blood Gas, Arterial 19-Mar-2018 14:32:00 ResultValuepH, Arterial 7.40pCO2, Arterial 39pO2, Arterial 79 LPatient- Temperature 37.0SO2, Arterial 96Base Excess-Blood -0.5Bicarbonate, Calculated, Arterial [...] NG/MLCocaine Metabolite Screen, Urine PRESUMPTIVE NEGATIVE PRESUMPTIVE NEGATIVECUTOFF LEVEL: 150 NG/MLMethadone Screen, Urine PRESUMPTIVE NEGATIVE CUTOFF LEVEL: 150 NG/ML The metabolite C-djhhj-eizmqtlxcotmuz (LAAM) is not detected by this method in concentrations that would befound in the urine of patients on LAAM [...] Urine YELLOW Reference Range: STRAW,YELLOWAppearance, Urine CLEARSpecific Douglas, Urine 1.013pH, Urine 6.0Protein, Urine NEGATIVEGlucose, Urine [...] 00:03:00 ResultValueHemoglobin A1C, Level 7.9 Diagnosis of Diabetes- Adults Non-Diabetic: < or = 5.6% Increased risk for developing diabetes: 5.7- 6.4% Diagnostic of diabetes: > or = 6.5%. Monitoring of Diabetes Age (y) Therapeutic Goal (%) Adults: >1Estimated Average Glucose 180 Assessment and Plan:Assessment:67 yo WM with no prior history of CAD, who has a past medical history of HTN,HLD, T2DM, [place]'s disease, hypothyroidism, COPD, AKASH on CPAP, prostate spring/p prostatectomy in 2011, and psoriasiswho was transferred to [facility] service [facility] on 03/18 for CABG eval. [place] dys[place]. He as found to havebilat PEs, was started on Heparin gtt, and transferred to [facility]. He wasfound to have a troponin leak at 2.25. Cardiology was consulted and the patientwas diagnosed with ACS, NSTEMI. He underwent a TTE and cath. He had normal EF,mild AI, and triple vessel CAD so was transferred to [facility] for CABG eval.Cardiac surgery consulted 03/19 for CABG eval. Plan- Dr Yu recommends holding off on CABG if able to allow ~1 week on Heparingtt for the PE; he [...] surgery immediately if the patient deteriorates clinically Signat ure/Cosignature/Attestation:Provider/Team Contact Info-Pager Numbercardiac surgery [phone] ElectronicSignatures:Mary Munroe (HEALTH AND SAFETY TECH-IRON WORKER APPRENTICE) (Signed 20-Mar-2018 20:40)Authored: Service, Subjective Data,Objective Data, Assessment and Plan,Signature/Cosignature/Attestation Last Updated: 20-Mar-2018 20:40 by Mary Munroe (HEALTH AND SAFETY TECH-IRON WORKER APPRENTICE)[facility]watonna ClinicDaily Progress Note-Cardiologyon 29-01-2040Zeiavwa mass concService: Cardiology Subjective Data:DON ELKINS is a 67 year old Male who is Hospital Day # 3. Additional Information:Remains hypertensive, Chest CTA reviewed by pulmonary to assess extent of PE's - Increase Carvedilol to 12.5mg BID- Plan for IVC filter- c/w Heparin gtt- Delay CABG until ~03/30/18,keep inpatient on Heparin gtt- Reduce Fludrocortisone and Hydrocortisone per Endocrinology Objective Data: Objective Information:T [id number]/03076%Date/Time03/20 11: 16:5303/20 16:5303/20 16:5311/2 16:53Range(36.1C - 37.1C ) (67 - 90 ) (17 - 20 ) (119 - 174 )/ (74 - 102 )(96% - 97% )Highest temp of 37.1 C was recorded at 03/20 5:35 Pain with Activity reported at 03/20 8:30: 0Pain at Rest reported at 03/20 8:30: 0 Filggvr28/2 5:35: Weight in kg (Weight (kg)) 108.911 5:35: Weightin lbs ((lbs)) 240 Physical Exam: Constitutional: Resting in bed, NADHead/Neck: No JVDRespiratory/Thorax: CTABCardiovascular: RRR, S1 A3Bdgxfwqihnknrcdi: soft, NT/NDExtremities: Right wrist site of catheterization intact, normal pulse. Noperipheral edemaNeurological: alert and oriented e5Mcbiaupdgyudb: Appropriate mood and behaviorSkin: psoriasis plaque over elbows and knees Medication: Medications: Continuous Medications 1. Heparin 25,000 units/ D5W 250 mL Infusion: 1000 units/hr IntraVenous Scheduled Medications 1. Aspirin Chewable: 81 mg Oral Daily2. Atorvastatin: 40 mg Oral Daily3. Carvedilol: 12.5 mg Oral 2 Times a Day4.Citalopram: 20 mg Oral Daily5. Docusate 50 mg - Senna 8.6 m tablet(s) Oral 2 Times a Day6. Heparin (Repeat Bolus) Injectable: 4000 unit(s) IntraVenous Push Every 2Yriga9. Hydrocortisone: 10 mg Oral 8. Hydrocortisone: 5 mg Oral 9. Hydrocortisone: 2.5 mg Oral 10. Insulin Lispro Mild Corrective Scale: unit(s) SubCutaneous 3 Times a DayBefore Meals11. Levothyroxine: 150 microgram(s) Oral Daily12.Mupirocin 2%: 0.5 application(s) Each Nostril 2 Times a Day13. Pantoprazole: 40 mg Oral Daily14. Polyethylene Glycol: 17 gram(s) Oral Daily15. rOPINIRole: 2 mg Oral 3 Times a Day PRN Medications ----- 1. Dextrose 50% in Water Injectable: 25 gram(s) IntraVenous Push Every 03Naphraw1. Glucagon Injectable: 1 mg IntraMuscular Every 15 Minutes Recent Lab Results: Results: I have reviewed these laboratory results: Glucose_POCT Trending View Uipden97-Mne-2546 17:30:00 20-Mar-2018 13:24:00 20-Mar-2018 08:28:00 19-Mar-2018 21:30:00 19-Mar-2018 18:25:00Glucose- VCVT680 H 234 H195 H 308 H 226 H Complete Blood [...] cm (2.7-4.0cm)IVSd: 1.84 cm (0.6-1.1cm)LVPWd: 0.96 cm (0.6- 1.1cm)LVIDd: 3.51 cm (3.9-5.9cm)LVIDs: 2.33 cmLV Mass Index: 79.3 g/m2LV % FS 33.6 %LA VOLUME: Normal Ranges:LA Vol A4C: 42.8 ml (22+/-6mL/m2)LA Vol A2C: 36.3 mlLA Vol BP: 44.5 mlLA Vol Index A4C: 19.6ml/m2LA Vol Index A2C: 16.6 ml/m2LA Vol Index BP: 20.4 ml/m2LA Area A4C: 17.4cm2LA Area A2C:14.2 cm2LA Major Paxton A4C: 6.0 cmLA Major Paxton A2C: 4.7 cmLA Volume Index: 15.2 ml/m2RA VOLUME BY A/L METHOD: Normal Ranges:RA Area A4C: 12.8 bd2U-JQBS MEASUREMENTS: Normal Ranges:Ao Root: 2.90 cm (2.0-3.7cm)LAs: 3.80 cm (2.7-4.0cm)AORTA MEASUREMENTS: Normal Ranges:Ao Sinus, d: 3.45 cm (2.1-3.5cm)Ao STJ, d: 2.85 cm (1.7-3.4cm)Asc Ao, d: 3.40 cm (2.1-3.4cm)LV SYSTOLIC FUNCTIONBY 2D PLANIMETRY (MOD): Normal Ranges:EF- A4C View: 59.9 % (>55%)EF-A2C View: 66.3 %EF-Biplane: 63.4 %LV DIASTOLIC FUNCT ION: Normal Ranges:MV Peak E: 0.60 m/s (0.7-1.2 m/s)MV Peak A: 0.71 m/s (0.42- 0.7 m/s)E/A Ratio: 0.84 (1.0-2.2)MV e' 0.05 m/s (>8.0)MV lateral e' 0.05 m/sMV medial e' 0.05 m/sMV A Dur: 148.00 msecE/e' Ratio: 11.92 (<8.0)a' 0.14 m/sMV DT: 261 msec (150-240 msec)PulmV Sys Michele: 51.80 cm/sPulmV Pablo Michele: 29.80 cm/sPulmV S/D Michele: 1.70PulmV A Revs Michele: 31.50 cm/sPulmV A Revs Dur: 116.00 msecMITRAL VALVE: NormalRanges:MV DT: 261 msec (150-240msec)AORTIC VALVE: Normal Ranges:AoV Vmax: 1.02 m/s (<1.7m/s)AoV Peak P.2 mmHg (<20mmHg)LVOT Max Michele: 0.87 m/s (<1.1m/s)LVOT VTI: 17.70 cmRIGHT VENTRICLE:RV 1 3.22 cmRV 2 2.33 cmRV 3 7.96 cmTAPSE: 19.1 mmRV s' 0.13 m/sTRICUSPID VALVE/RVSP: Normal Ranges:IVC Diam: 2.03 cmPULMONIC VALVE: Normal Ranges:PV Max Michele: 1.0 m/s (0.6-0.9m/s)PV Max P.2 mmHgPulmonary Veins:PulmV A Revs Dur: 116.00 msecPulmV A Revs Michele: 31.50 cm/sPulmV Pablo Michele: 29.80 cm/sPulmV S/D Michele: 1.70PulmV Sys Michele: 51.80 cm/s Echocardiogram [Mar 19 2018 2:30PM] Impression: 1. No radiographic evidence of acute cardiopulmonary process. Xray Chest 2 View PA + Lateral [Mar 19 2018 2:19PM] Impression: 1. No radiographic evidence of acute cardiopulmonary process. Xray Chest 1 View [Mar 19 2018 9:20AM] Assessment and Plan:Assessment:67 yo M with HTN, DLD, T2DM, Addisson's, GERD, prostate ca s/p prostatectomy aq0843, hypothyroidism, psoriasis, and most recently diagnosed with a PE andmultivessel CAD transferred to medicine at [facility] from [facility] on03/18 for CABG eval. Multiple PEs- [...] relaxation- EKG without acute ST T wave changes-Hold LAUREN perioperatively- Starting Atorva 40 mg- Switch Metoprolol to Carvedilol for better BP control- Cardiac Cath uploaded- Plan for CABG with Dr. Gaston week of 03/30 s/p recent root canal- orthopantogram T2DM- Holding home Metformin- SSI and hypoglycemia protocol- A1C 7.9%- BS 172, 175, 226, 308,195 Brigida's disease- Reduce fludrocortisone to 0.05 mg daily- Reduce hydrocortisone to 10mg/5mg/2.5mg- Follow Endocrine recs pre op GERD- Continue home PPI HTN- Holding LAUREN- 120/79 - 171/93- Increase Carvedilol to 12.5mg BID- Monitor BP with reducing Florinef dose DLD- Atorva 40mg- lipids 155/44/82/141 HypothyroidismTSH 2.51- Continue home levothyroxine GI ppx: on PPICode status: Full Electronic Signatures:Vito Patino (HEALTH AND SAFETY TECH-IRON WORKER APPRENTICE) (Signed 20-Mar-2018 19:13)Authored: Service, Subjective Data, Objective Data, Assessment and Plan,Signature/Cosignature/AttestationMor Calderon) (Signed 01-Apr-2018 13:54)Co-Signer: Service, Subjective Data, Objective Data, Assessment and Plan,Signature/Cosignature/Attestation Last Updated: 01-Apr-2018 13:54 by Mor Calderon)[facility]watonna ClinicGLUCOSE-POCTon 84-30-9062Fpjjdwa mass wydh190 mg/zZYolm[address] [place], [place] [address]Comment on above:Performed By: #### COAGS ####[id number], [place] [address]Ytjnoqc mass wtqk032 mg/pPDtuj3922 Wilson StreetComment on above:Performed By: #### COAGS ####[id number], [place] [address]Elwzlcm mass ymjp456 mg/dL High[address] [place], [place] [address]Comment on above:Performed By: #### CBC ####[id number], [place] [address]UQMXIMOJTU A1Con 36-11-8634Xtzcnqv mass concCanceledOwatonna ClinicComment on above:Order Comment: TEST HEMOGLOBIN A1C WAS CANCELLED, 03/20/2018 18:41 DUPLICATE ORDER. Performed By: #### COAGS ####[id number], [place] [address]Holnsegwlj A1c/Hemoglobin.total mass fraction (Bld)CanceledOwatonna ClinicComment on above:Order Comment: TEST HEMOGLOBIN A1C WAS CANCELLED, 03/20/2018 18:41 DUPLICATE ORDER.Result Comment: Diagnosis of Diabetes-Adults Non-Diabetic: < or = 5.6% Increased risk for developing diabetes: 5.7-6.4% Diagnostic of diabetes: > or = 6.5%. Monitoring of Diabetes Age (y) Therapeutic Goal (%) Adults: >18 <7.0 Pediatrics: 13-18 <7.5 7-12 <8.0 0- 6 7.5-8.5 [employer]. Diabetes Care 33(S1), May 2009.Performed By: #### COAGS ####[id number], [place] [address]ZPROUYD ASSAY,UFHon 03-20-2018 HEPARIN ASSAY,UFH0.1 IU/mLNCook HospitalComment on above: Result Comment: The therapeutic reference range for UFH may be either 0.3-0.6 IU/mL or 0.3-0.7 IU/mL based on the clinical setting for anticoagulant therapy and the associated nomogram used. For heparin dosing guidelines based on clinical scenario and Heparin Assay results, please refer to local Pharmacy and the [facility] Guidelines for Anticoagulation therapy available on the [facility] intranet at:[email or web address]/Pages/[place]_Guide lines_for_Anticoagu.aspxPerformed By: #### COAGS ####[id number], [place] [address]HLXDKQAIWvw 40-06-1088Vgfilvcqz mass concCanceledNormalUHealthsouth - Specialty Hospital Of UnionComment on above:Order Comment: TEST MAGNESIUM WAS CANCELLED, 03/20/2018 08:04 NO SPECIMEN RECEIVED IN LAB.Performed By: #### CBC ####[id number], [place] [address]JSOWR FUNCTION PANELon 03-20-2018 Albumin mass conc3.9 g/dLNormal3.4 - 5.0[facility] Toms RiverComment on above:Performed By: #### COAGS ####[id number] [place] [address] Anion gap 3 molar conc16 mmol/UXsgkmo65 - 20[facility] Toms RiverComment on above:Performed By: #### COAGS ####[id number] [place] [address] Calcium mass conc9.0 mg/dLNormal8.6 - 10.6[facility] Toms RiverComment on above:Performed By: #### COAGS ####[id number] [place] [address] Chloride molar wbfe950 mmol/FKolfpz46 - 107[facility] Toms RiverComment on above:Performed By: #### COAGS ####[id number] [place] [address] Creatinine mass conc1.38 mg/dLHigh0.50 - 1.30[facility] Toms RiverComment on above:Performed By: #### COAGS ####[id number] [place] [address] GFR- AM.62 mL/min/1.57m1Ywyfaw>60[facility] Toms RiverComment on above:Result Comment: CALCULATIONS OF ESTIMATED GFR ARE PERFORMED USING THE MDRD STUDY EQUATION FOR THE IDMS-TRACEABLE CREATININE METHODS. CLIN CHEM 2007;53:766-72Performed By: #### TREASUREGS ####[id number], [place] [address]FEU-IIC AM.51 mL/min/1.24s3Nkjjnypx>60[facility] Comment on above:Performed By: #### COAGS ####[id number], [place] [address]Wnsxqmv mass smzx487 mg/cTQzgq86 - 99[facility] Toms RiverComment on above:Performed By: #### TREASUREGS ####[id number] [place] [address] HCO3 molar conc (Bld)24 mmol/NBxydld44 - 32[facility] Toms RiverComment on above:Performed By: #### TREASUREGS ####[id number] [place] [address] Phosphate mass conc4.3 mg/dLNormal2.5 - 4.9[facility] Toms RiverComment on above:Result Comment: The performance characteristics of phosphorus testing in heparinized plasma have been validated by the individual laboratory site where testing is performed. Testing on heparinizedplasma is not approved by the FDA; however, such approval is not necessary.Performed By: #### TREASUREGS ####[id number], [place] [address]Vjsatsmfn molar conc4.0 mmol/L Normal3.5 - 5.3[facility] Toms RiverComment on above:Performed By: #### COAGS ####[id number], [place] [address]Jhnaaj molar tnxg487 mmol/L Tlugbo842 - 145[facility] Toms RiverComment on above:Performed By: #### COAGS ####[id number], [place] [address]Mxnf nitrogen mass conc22 mg/dLNormal6 - 23[facility] Toms RiverComment on above:Performed By: #### TREASUREGS ####[id number] [facility].[place] [id number] LAB Arterial Duplex Ultrasoundon 31-21-7242KNFN LAB Arterial Duplex UltrasoundJfk [facility], [address] [place], [place] [address] and Vascular Lab Report Upper Arterial Duplex Ultrasound Patient Name: DON ELKINS Reading Physician: Janis Munozchelsie MDStudy Date: 03/20/2018 Referring Physician: [id number] Calderon MDMRN/PID: [id number] PCP:Accession/Order#: [id number] CC Report to:Date of : 1950 Technologist: Jasvir SÁNCHEZender: Cristhian Technologist 2:Admission Status: Inpatient Location Performed: [facility] Diagnosis/ICD: I24.8-Cardiac Ischemia;Z01.818-Encounter for other preprocedural examinationProcedure/CPT: 36297 Upper arterial Duplex Limited-84113 CONCLUSIONS:Right Upper Arterial: The right radial artery is patent with triphasic waveforms.Left Upper Arterial: The left radial artery is patent with triphasic waveforms. Imaging & Doppler Findings: Right Left PSV Waveform PSV Bfwstjhk93 cm/s Triphasic Radial 87 cm/s Triphasic Right LeftRadial Diam P 2.6 mm 2.2 mmRadial Diam M 2.5 mm 2.2 mmRadial Diam D 2.3 mm 2.0 mm [id number] Olesya Fall MD Final NormalUH Jfk Johnson Rehabilitation InstituteVAS LAB Carotid Artery Duplex Ultrasounon 19-59-1409QYRV LAB Carotid Artery Duplex Ultrasoun [facility], [address] [place], [place] [address] and Vascular Lab Report Carotid Artery Duplex Ultrasound Patient Name: DON ELKINS Reading Physician: Janis Munozchelsie MDStudy Date: 03/20/2018 Referring Physician: [id number] Calderon MDMRN/PID: [id number] PCP:Accession/Order#: [id number] CC Report to:Date of : 1950 Technologist: Jasvir Owens RVTGender: Cristhian Technologist 2:Admission Status: Inpatient Location Performed: [facility] Diagnosis/ICD: I24.8-Cardiac Ischemia;Z01.818-Encounter for other preprocedural examinationProcedure/CPT: 98711 Cerebrovacular Carotid Duplex scan complete-36441 CONCLUSIONS:Right Carotid: Findings areconsistent with less than 50% stenosis of the [...] cm/s37 cm/s Vertebral 48 cm/s160 cm/s Subclavian 206cm/s Right LeftICA/CCA Ratio 1.3 0.8 [id number] Fall MD Final NormalUH [facility] InstituteVASC LAB PVR (Arterial Physiologic) ABIon 12-02-4722EKIV LAB PVR (Arterial Physiologic) Formerly [facility], [address] [place] [address] and Vascular Lab Report PVR BROOKS Patient Name: DON ELKINS Zaid Physician: [id number] Fall MDStudy Date: 03/20/2018 Referring Physician: [id number] Calderon MDMRN/PID: [id number] PCP:Accession/Order#: [id number] CC Report to:Date of : 1950 Technologist: Jasvir Mckoy: Cristhian Technologist 2:Admission Status: Inpatient Location Performed: [facility] Diagnosis/ICD: I24.8-Cardiac Ischemia;Z01.818-Encounter for other preprocedural examinationProcedure/CPT: 92035 Peripheral artery BROOKS Only-80646 CONCLUSIONS:Right Upper PVR: Baseline indices less than 0.80 and waveforms appearabnormal. Clinical correlation is advised. Incomplete palmar arch [...] Right LeftBrachial Pressure 146 mmHg 143 mmHg [id number] Olesya Fall MDElectronically signed [place] [id number] Olesya Fall MD on03/25/2018 at 10:45:29 PM Final NormalUH [facility] InstituteVASC LAB PVR (Arterial Physiologic) ABIJfk [facility], [address] [place] [address] and Vascular Lab Report PVR BROOKS Patient Name: DON ELKINS Zaid Physician: [id number] Olesya Fall MDStudy Date: 03/20/2018 Referring Physician: [id number] Calderon MDMRN/PID: [id number] PCP:Accession/Order#: [id number] CC Report to:Date of : 1950 Technologist: Jasvir Morrow Technologist 2:Admission Status: Inpatient Location Performed: [facility] Diagnosis/ICD: I73.9-Peripheral vascular disease, unspecified;I24.8-Cardiac Ischemia;Z01.818-Encounter for other preproceduralexaminationProcedure/CPT: 56339 Peripheral artery BROOKS Only-07092 CONCLUSIONS:Right Lower PVR: No evidence of arterial occlusive disease in the right lower extremity at rest. Biphasic flow is noted inthe right posterior tibial artery. Triphasic flow is noted in the right common femoral artery and right dorsalis pedis artery.Left Lower PVR: No evidence of arterial occlusive disease in the left lower extremity at rest. Left pressures of >220 mmHg suggest no compressibility of vessels and may make absolute Segmental Limb Pressures (BUY BOAT OPERATOR) unreliable. Triphasic flow is noted in the left dorsalispedis artery, left posterior tibial artery and left common femoral artery. Imaging & Doppler Findings: RIGHT Lower PVR Pressures RatiosRight Posterior Tibial (Ankle) 142 mmHg 0.97Right Dorsalis Pedis (Ankle) 139 mmHg 0.95 LEFT Lower PVR Pressures RatiosLeft Posterior Tibial (Ankle) 178 mmHg 1.22Left Dorsalis Pedis (Ankle) 255 mmHg 1.75 Right LeftBrachial Pressure 146 mmHg 145 mmHg [id number] [address] VALENTIN Final NormalUH Jfk [facility] InstituteVASC LAB Pre-op Vessel Vein Mappingon 52-72-8390NMUH LAB Pre-op Vessel Vein Mapping [facility], [address] [place] [address] and Vascular Lab Report Pre-op Vein Mapping Lower Patient Name: DON ELKINS Reading Physician: [id number] Olesya Fall MDStudy Date: 03/20/2018 Referring Physician: [id number] Calderon MDMRN/PID: [id number] P:Accession/Order#: [id number] CC Report to:Date of : 1950 Technologist: Jasvir LAYNETGender: Cristhian Technologist 2:Admission Status: Inpatient Location Performed: [facility] Diagnosis/ICD: Z01.818- Encounter for other preprocedural examination;I24.8-Cardiac IschemiaProcedure/CPT: 43893 Vein mapping complete-51417 CONCLUSIONS:Left Lower Vein Mapping: The left great [...] mmSSV Prox FibroticSSV Mid FibroticSSV Distal Fibrotic [id number] Olesya Fall MDElectronicallysigned by [id number] Olesya Fall MD on 03/25/2018 at 7:18:57 PM Final NormalHealthSouth - Rehabilitation Hospital of Toms RiverARTERIAL BLOOD GASon 53-61-0944GAJN GQJFBO-SZEXY-0.5 mmol/LNormal- 2.0 - 3.0[facility] Toms RiverComment on above:Performed By: #### EMRAD ####NO LOCATION NEEDEDOxygen ppres (BldA)79 mm[Hg]Low85 - 95[facility] Toms RiverComment on above:Performed By: #### EMRAD ####NO LOCATION ENDHBAAYK176 vaQpCkfzdi35 - 42[facility] Toms RiverComment on above:Performed By: #### EMRAD ####NO LOCATION NEEDEDpH (Bld)7.40 [pH]Normal7.38 - 7.42[facility] Toms RiverComment on above:Performed By: #### EMRAD ####NO LOCATION NEEDED RBC Auto #/vol (Bld)24.2 mmol/ZScanuf50.0 - 26.0[facility] Comment on above:Performed By: #### EMRAD ####NO LOCATION UUDVRBKU686 %Ebhbzq24 - 100[facility] Toms RiverComment on above:Performed By: #### EMRAD ####NO LOCATION NEEDEDARTERIAL H+Hon 65-78-1989Jdpdxgkheb Auto Volume Fraction (Bld) 41.0 %Hmcbca42.0 - 52.0[facility] Toms RiverComment on above:Performed By: #### HHNA1 ####[id number], [place] [address]WJH,BFUWZUYPJT11.9 g/dL Niynhi92.5 - 17.5[facility] Toms RiverComment on above:Performed By: #### HHNA1 ####[id number], [place] [address]FQXSIAHS POTASSIUMon 60-46-4274Lxuxzyggj molar conc3.7 mmol/LNormal3.5 - 5.3[facility] Toms RiverComment on above:Performed By: #### POTGA ####[id number], [place] [address]Buavrlngs Risk Screen - Adulton 23-29-4933Gnkdepdqu Risk Screen - AdultAllergies: Allergies: No Known Allergies: Patient Verification: New W ID Band Applied in my Departmentyes Patient Identity Verified Bydriver's license/state ID ID Band FULL Name, include Middle, spelling matches patient's ID used forverificationyes ID Band Matches Patient ID used for Verfication yes ID Band MRN Matches EMR MRNyes Advance Directive: Advance Directive Medicalyes Advance Directive typeLiving Will, Durable Power of Reverberatory Furnace Operator for Healthcare Living Will AvailabilityLiving Will not available now Living Will [id number] Durable Power of Reverberatory Furnace Operator AvailabilityDPOA not available now Durable Power of Reverberatory Furnace Operator [id number] Durable Power of Reverberatory Furnace Operator contact (name and number)Rikki [place] Screen:Type [...] rehabilitation consult at this time Learning Assessment (Patient):Patient is Able to be Assessed for Learningyes Factors Influencing Readiness to Learnacuteness of illness Factors that Impact Ability to Learnlearning disabilities, visual problems,memory Devices/Methods Used to Communicateglasses Learning Preferencesskill demonstration Cultural Considerationsnone Developmental Considerationsnone Christianity Considerationsnone Learning Assessment (Other Learner): Other learner [...] Screen: Have you recently lost weight without tryingnoHave you been eating poorly because of a [...] Painyes Usual Pain Rating at Rest0 Usual PainRating with Activity7 Chronic Back pain locationback Spiritual Screen: Are there any cultural, spiritual, yazidism practices/values/needs that areimportant for us to knowno CAGE:Is this an injured patient at a Trauma Center ([facility] / [facility]): no Vaccinations:Vaccination - Influenza Vaccination Screen: Is it flu season (between and )Yes Screening for identified contraindications to influenza vaccinationnocontraindications identified Influenza vaccine indicatedyes Vaccination - Pneumonia Vaccination Screen: Patient has received a previous pneumonia vaccine:yes Prudencio:Skin - Prudencio Scal e: Prudencio: Sensory Perception (response to environment)(3) slightly limited Prudencio: Moisture (degree skin exposed to moisture)(4) rarely moist Prudencio: Activity (ability to walk)(3) walks occasionallyBraden: Mobility (amount/control of body movement)(4) no limitation Prudencio: Nutrition (quality of food intake)(3) adequate Prudencio: Friction and Shear(3) no apparent problem Prudencio: Score20 Significant Indicatiors:Significant Indicators: Complete Pressure Injury:Pressure Injury Present on Admissionno Electronic Signatures:Jeannie Shelton (RN) (Signed 19-Mar-2018 00:38)Authored: Admission Risk Screens, Vaccinations, Prudencio, Pressure Injury Last Updated: 19-Mar-2018 00:38 by Jeannie Shelton (RN)[facility] ClinicBN ORTHOPANTOGRAMon 53-58-9017JN ORTHOPANTOGRAMMRN: [id number] Name: DON ELKINS STUDY:BN ORTHOPANTOGRAM; 03/19/2018 12:56 pm INDICATION:Signs/Symptoms: tooth pain, s/p recent root canal, pre op CABG [id number]. COMPARISON:None. ACCESSION NUMB ER(S):[id number] ORDERING CLINICIAN:VITO PATINO TECHNIQUE:ORTHOPANTOGRAM FINDINGS:Suspected dental caries right maxillary premolar. No other suspiciouslucency seen. Dental amalgam noted. IMPRESSION: Suspected periapical abscess right maxillary premolar.Electronically signed by: Luca CATALANHealthsouth - Specialty Hospital Of UnionCBJose Miguel [id number] distribution width Auto Ratio (RBC)13.0 %Umvvmr66.5 - 14.5[facility] Toms RiverComment on above:Performed By: #### CBC ####[id number], [place] [address]Kwedlcvlwp Auto Volume Fraction (Bld)39.6 %Low41.0 - 52.0 [facility] Toms RiverComment on above:Performed By: #### CBC ####[id number], [place] [address]Jdxpmdzewt mass conc (Bld)13.4 g/dL Low13.5 - 17.5[facility] Toms RiverComment on above:Performed By: #### CBC ####[id number], [place] [address]LRSN Auto mass conc (RBC)33.8 g/dL Zdsohs51.0 - 36.0[facility] Toms RiverComment on above:Performed By: #### CBC ####[id number], [place] [address]BNG Auto Entitic volume (RBC)92 vSKpdjpn98 - 100[facility] Toms RiverComment on above:Performed By: #### CBC ####[id number], [place] [address]Rijjqhmwq RBC/100 WBC Ratio (Bld)0.0 /100 WBCNormal0.0-0.0[facility] Toms RiverComment on above: Performed By: #### CBC ####[id number], [place] [address]Asaycoomi Auto #/vol (Bld)259 10*3/pSDwxoac078 - 450[facility] Toms RiverComment on above:Performed By: #### CBC ####[id number], [place] [address]DKL Auto #/vol (Bld)4.32 x10E12/LLow4.50 - 5.90[facility] Toms RiverComment on above:Performed By: #### CBC ####[id number], [place] [address]QRQ Auto #/vol (Bld)10.8 10*3/uLNormal4.4 - 11.3[facility] Toms RiverComment on above:Performed By: #### CBC ####[id number] [place] [address] Erythrocyte distribution width Auto Ratio (RBC)13.0 %Igggso45.5 - 14.5[facility] Toms RiverComment on above:Performed By: #### CBC ####[id number], [place] [address]Nevrhpzcvu Auto Volume Fraction (Bld)42.4 %Normal 41.0 - 52.0[facility] Toms RiverComment on above:Performed By: #### CBC ####[id number], [place] [address]Imxswykjfw mass conc (Bld)14.7 g/dL Dlsxfo27.5 - 17.5[facility] Toms RiverComment on above:Performed By: #### CBC ####[id number], [place] [address]UXWK Auto mass conc (RBC)34.7 g/kYGcmcah09.0 - 36.0[facility] Toms RiverComment on above:Performed By: #### CBC ####[id number], [place] [address]OYX Auto Entitic volume (RBC)91 jOGoindu65 - 100[facility] Toms RiverComment on above:Performed By: #### CBC ####[id number], [place] [address]Qgnlibfyn RBC/100 WBC Ratio (Bld)0.2 /100 WBCNormal0.0-0.0[facility] T[facility] RiverComment on above: Performed By: #### CBC ####[id number], [place] [address]Mxhgnvacl Auto #/vol (Bld)282 10*3/yMWyqvox444 - 450[facility] Toms RiverComment on above:Performed By: #### CBC ####[id number], [place] [address]VXY Auto #/vol (Bld)4.68 x10E12/LNormal4.50 - 5.90[facility] Toms RiverComment on above:Performed By: #### CBC ####[id number] [place] [address] WBC Auto #/vol (Bld)12.7 10*3/uLHigh4.4 - 11.3[facility] Toms RiverComment on above:Performed By: #### CBC ####[id number] [place] [address] COAGULATION SCREENon [id number] Coag time (Bld)31 qKhufsn39 - 38[facility] Toms RiverComment on above:Result Comment: Note new reference range as of 03/10/2018. THE APTT IS NO LONGER USED FOR MONITORING UNFRACTIONATED HEPARIN THERAPY. FOR MONITORING HEPARIN THERAPY, USE THE HEPARIN ASSAY.Performed By: #### COAGS ####[id number], [place] [address]EUH Coag RelTime (PPP) 1.4 {INR}High0.9 - 1.1[facility] Toms RiverComment on above:Performed By: #### COAGS ####[id number], [place] [address]Cwdxkdqnxro time (PT) Coag time (PPP)16.1 sHigh9.7 - 12.7[facility] Toms RiverComment on above: Result Comment: Note new reference range as of 03/10/2018.Performed By: #### COAGS ####[id number], [place] [address]SEOP PANEL, ARTERIALon 62-77-1012JFUWN HGB3.7 %Normal0.0 - 5.0[facility] Toms RiverComment on above:Performed By: #### COOXA ####[id number] [place] [address] Hemoglobin mass conc (Bld)1.1 %NormalHealthSouth - Rehabilitation Hospital of Toms RiverComment on above:Result Comment: REF VALUESNONSMOKERS 0.5-1.5%SMOKERS 0.5-10.0%Performed By: #### COOXA ####[id number], [place] [address]Hccwkcrntf mass conc (Bld)14.9 g/tBOqrafb04.5 - 17.5[facility] T[facility] RiverComment on above: Performed By: #### COOXA ####[id number], [place] [address]BZQ HGB1.2 %Normal0.0 - 1.5[facility] Toms RiverComment on above:Performed By: #### COOXA ####[id number], [place] [address]CVB HGB93.9 %Low94.0 - 98.0[facility] Toms RiverComment on above:Performed By: #### COOXA ####[id number], [place] [address]Xveoatkd Event Note-STS Score - Cardiac Surgeryon [id number] Event Note-STS Score - Cardiac Surgery Event:Topic: STS Score - Cardiac SurgeryDetails:Procedure: CAB OnlyRisk of Mortality: 1.006%Morbidity or Mortality: 13.941%Long Length of Stay: 4.79%Short Length of Stay: 47.443%Permanent Stroke: 0.962%Prolonged Ventilation: 8.167%DSW Infection: 0.651%Renal Failure: 5.562%Reoperation: 4.472% Provider / Team Contact Information:Provider/Team Contact Info-Pager Number: [phone] cardiac surgery Electronic Signatures:Herminia Kern (PAC) (Signed 19-Mar-2018 18:40)Authored: Event, Provider / Team Contact Information Last Updated: 19-Mar-2018 18:40 by Herminia Kern (PAC)[facility] Consult-Cardiac Surgeryon [id number]-Cardiac SurgeryService:Service: Cardiac Surgery Consult:Consult requested by (Attending Name): Dr. Mor Woo: CAD; CABG eval History of Present Illness:Admission Reason: Transferred for CABG evalHPI:PCP: Sal Hernandez ([facility]) - Levi Sinha: [place] 67 yo WM with no known history of CAD, who has a past medical history of HTN,HLD, T2DM, Brigida's disease, hypothyroidism, COPD, AKASH on CPAP, prostate spring/p prostatectomy in 2011, and psoriasis who was transferred to [facility] on 03/18 for CABG eval. Patient reports 2 month h/o intermittent exertional left sided chest painlasting less than 30 min, relieved with rest, with no other associa tedsymptoms. He woke up 03/16 at 1AM with chest pressure associated with dyspnea,and his took him to [facility] where he was diagnosed withbilateral PEs, started on heparin gtt, then transferred to [facility]. There, hewas found to [...] free, on room air withno breathing complaints. Hedenied any recent travels, immobilization, abnormalclotting or bleeding history. He denied any palpi tations, diaphoresis, nearsyncope associated with his prior chest discomfort episodes. He reports afamily history significant for [place], CT, CHF, HTN, DM and DLD. He quit oecboll85 years ago. Has an occasional beer, and denies any drug use. 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 Cardiac surgery consulted 03/19 for CABG eval. Pt currently asymptomatic andhemodynamically stable. 12 points ROS obtained and negative unless otherwise stated above Outside Hospital cardiac work up:CTA at [place]:Pulmonary emboli involving the bilateral lobar segmental, and severalsubsegmental branches (RUL, RML, RLL, FIDEL, LLL). LHC/cors at [facility] 03/16/18: by Levi PisanoLM: 10-20%LAD prox: 30%LAD mid: 95%Diag 3rd: 99%RCA: 85 %PLV: 50%Circ: 95% TTE at [facility] 03/15/18:EF 60-65%Mild concentric LVHLV wall motion is normalMild LA dilationpseudonormalized LV relaxation, whichis associated with grade II/IV or mild tomoderate diastolic dysfunctionMild aortic regurgitation PMH: HTN, HLD, T2DM, [place]'s disease, hypothyroidism, COPD, AKASH on CPAP,prostate ca s/p prostatectomy in 2011, psoriasis, remote hepatitis B, priorGERD, lumbar Degenerative disk disease, arthritis, kidney stones (current,small), cataract, plantar fasciitis PSH: prostatectomy 2012, R cataract surgery, cholecystectomy, appendectomy,sinus surgery, vasectomy, bilat carpal tunnel release surgery, ganglion cystremoval from hands, cystoscopy 2 weeks ago for microscopic hematuria, rootcanal 2 weeks ago.FHx: CAD/CT, cancer, DM, HTN, migraines, CVA Social: former smoker - quit 20yrs ago; occasional ETOH, no illicits; liveswith spouse in a house NKDA Preadmission Home Meds:asa 81mg dailycalcium 600+ D3 1 tab dailycitalopram 20mg dailycoenzyme Q10 100mg dailyfludrocortisone 0.1mg dailyhydrocortisone 20mg BIDibuprofen 600mg BIDlevothyroxine 150mcg dailylisinopril 20mg dailymetformin 500mg BIDMV daily Bradley-3 fatty acids fish oil 1 cap dailyomeprazole 40mg dailyropinirole 8mg dailysimvastatin 20mg daily Review Family/Social History and ROS: Review Family/Social History and ROS: I have reviewed thefamily and social history and review of systems from theHistory and Physical. Family History:Bleeding Disorder: noCancer: yesCAD: yesDiabetes: yesHypertension: yesStroke: yesVTE: no Social History: Smoking Status: former smokerAlcohol Use: occasionallyDrug Use: denies Constitutional: NEGATIVE: Fever, Chills, Anorexia, Weight Loss, Malaise Eyes: NEGATIVE: Blurry Vision, Drainage, Diploplia, Redness, Vision Loss/Change ENMT: NEGATIVE: Nasal Discharge, Nasal Congestion, Ear Pain, Mouth Pain, Throat Pain Respiratory: NEGATIVE: Dry Cough, Productive Cough, Hemoptysis, Wheezing,Shortness of Breath Cardiac: NEGATIVE: Chest Pain, Dyspnea on Exertion, Orthopnea, Palpitations,Syncope Gastrointestinal:NEGATIVE: Nausea, Vomiting, Diarrhea, Constipation, AbdominalPain Genitourinary: NEGATIVE: Discharge, Dysuria, Flank Pain, Frequency, Hematuria Musculoskeletal: POSITIVE: Pain, Stiffness; NEGATIVE: Decreased ROM, Swelling,Weakness; COMMENTS: of back Neurological: NEGATIVE: Dizziness, Confusion, Headache, Seizures, Syncope Psychiatric: NEGATIVE: Mood Changes, Anxiety, Hallucinations, Sleep Changes, Suicidal Ideas Skin: NEGATIVE: Mass, Pain, Pruritus, Rash, Ulcer; COMMENTS: psoriasiselbows/knees Endocrine: NEGATIVE: Heat Intolerance, Cold Intolerance, Sweat, Polyuria,Thirst Hematologic/Lymph: NEGATIVE: Anemia, Bruising, Easy Bleeding, Night Sweats,Petechiae Allergic/Immunologic: NEGATIVE: Anaphylaxis, Itchy/ Teary Eyes, Itching,Sneezing, Swelling Breast: NEGATIVE: Pain, Mass, Discharge, Nipple Itching, Gynecomastia All Other Systems: All other systems reviewed and are negative Allergies: No Known Allergies: Objective: Objective Information: T [id number]/8396%Date/Time03/19 3: 3: 3: 3: 3:42Range(36.6C - 36.6C ) (79 - 79 ) (20 - 20 ) (149 - 173 )/ (83- 92 ) (96%- 97% ) Pain with Activity reported at 03/19 0:25: 0Pain at Rest reported at 03/19 0:25: 3Ekkpzdq20/1 0:14: Weight in kg (Weight (kg)) 109.311/1 0:14: Weight in lbs ((lbs)) 56348/1 0:14: BMI (kg/m2) (BMI (kg/m2)) 36.646 Physical Exam: Constitutional: Well developed, awake/alert/oriented x3, no distress, alert andcooperativesitting on edge of bedEyes: sclera clearENMT: mucous membranes moist, no apparent injury, no lesions seenHead/Neck: Neck supple, No JVD, trachea midline, no bruitsRespiratory/Thorax: nonlabored; CTAsternum stableon room air; patient's own CPAP machine is in roomCar diovascular: RRR; no M/R/G; TELE - SR 80sGastrointestinal: obese; soft; NT/ND; BS+Genitourinary: voiding per urinal; no dysuriaMusculoskeletal: MAEExtremities: PP+1 BLE; no edema; well perfused; mildvaricose veinsNeurological: awake; A&Ox4; no focal defPsychological: Appropriate mood and behaviorSkin: pink, warm, and drybilat elbow, bilat Knee R>L psoriasis plaques Medications: Medications: Continuous Medications 1. Heparin 25,000 units/ D5W 250 mL Infusion: 1000 units/hr IntraVenous Scheduled Medications 1. Aspirin Chewable: 81 mg Oral Daily2. Atorvastatin: 40 mg Oral Daily3. Carvedilol: 6.25 mg Oral 2 Times a Day4. Cit alopram: 20 mg Oral Daily5. Docusate 50 mg - Senna 8.6 m tablet(s) Oral 2 Times a Day6. Fludrocortisone: 0.1 mg Oral Daily7. Heparin (Repeat Bolus) Injectable: 4000 unit(s) IntraVenous Push Qjcxs2Hajrb8. Hydrocortisone: 20 mg Oral 2 Times a Day9. Insulin Lispro Mild Corrective Scale: unit(s) SubCutaneous 3 Times a DayBefore Meals10. Levothyroxine: 150 microgram(s) Oral Daily11. Pantoprazole:40 mg Oral Daily12. Polyethylene Glycol: 17 gram(s) Oral Daily13. rOPINIRole: 2 mg Oral 3 Times a Day PRN Medications 1. Dextrose 50% in Water Injectable: 25 gram(s) IntraVenous Push Every 54Muvxxxv3. Glucagon Injectable: 1 mg IntraMuscular Every 15 [...] function is normal with a 60-65% estimatedejection fraction.2. Spectral Doppler shows an impaired relaxation pattern of left ventriculardiastolic filling. Echocardiogram [Mar 19 2018 2:30PM] Impression:1. No radiographic evidence of acute cardiopulmonary process. Xray Chest 2 View PA + Lateral [Mar 19 2018 2:19PM] Impression:1. No radiographic evidence of acute cardiopulmonary process. Xray Chest 1 View [Mar 19 2018 9:20AM] OUTSIDE HOSPITALCTA at [place]:Pulmonary emboli involving the bilateral lobar segmental, and severalsubsegmental branches (RUL, RML, RLL, FIDEL, LLL). LHC/cors at [facility] 03/16/18: by Levi Hunter: 10-20%LAD prox: 30%LAD mid: 95%Diag 3rd: 99%RCA: 85 %PLV: 50%Circ: 95% TTE at [facility] 03/15/18:EF 60-65%Mild concentric LVHLV wall motion is normalMild LA dilationpseudonormalized LV relaxation, which is associated with grade II/IV or mild tomoderate diastolic dysfunctionMild aortic regurgitation Assessment:67 yo WM with no priorhistory of CAD, who has a past medical history of HTN,HLD, T2DM, Brigida's disease, hypothyroidism, COPD, AKASH on CPAP, prostate spring/p prostatectomy in 2011, and psoriasis who was transferred to [facility] from [facility] on 03/18 for CABG eval. [facility] [place] [facility] and dyspnea. He as found to havebilat PEs, was started on Heparin gtt, and transferred to [facility]. He wasfound to have a troponin leak at 2.25. Cardiology was consulted and the patientwas diagnosed with ACS, NSTEMI. He underwent a TTE and cath. He had normal EF,mild AI, andtriple vessel CAD so was transferred to [facility] for CABG eval. Cardiac surgery consulted 03/19 [...] for 81mg aspirin- Shut heparin drip off certified meeting professional to OR- Please start or continue beta danica; If unable to tolerate beta blockerplease document reason- please consult Endocrine d/t Brigida's disease- please consult Pulmonary for PE workup Thank you for the consultation. [place] [phone] with any questions or changesin patient condition. Signature/Cosignature/Atte station:Provider/Team Contact Info-Pager [email or web address] [phone] Electronic Signatures:LudwigMary Lin (HEALTH AND SAFETY TECH-[facility]) (Signed 19-Mar-2018 18:21)Authored: Service, History of Present Illness, Review Family/Social Historyand ROS, Objective, Assessment/Recommendations,Signature/Cosignature/AttestationAudeliaKyle galeano (HEALTH AND SAFETY TECH-[facility]) (Signed 19-Mar-2018 08:17)Authored: Service, Allergies, Objective, Assessment/Recommendations Last Updated: 19-Mar-2018 18:21 by Mayr Munroe (HEALTH AND SAFETY TECH-[facility])NormalHealthSouth - [facility] Hospital of Toms RiverDRUG SCREEN,PAIN MANAGEMENT W/ REFLEXon [id number] SCREEN,UNegativeNormalNEGATIVEHealthSouth - Rehabilitation Hospital of Toms RiverComment on above:Result Comment: CUTOFF LEVEL: 500 NG/ML Cross-reactivity has been reported with high concentrationsof the following drugs: buproprion, chloroquine, chlorpromazine, ephedrine, mephentermine, fenfluramine, phentermine, phenylpropanolamine, pseudoephedrine, and propranolol.Performed By: #### DSPMR ####[id number], [place] [id number] SCREEN,UNegativeNormalNEGATIVEHealthSouth - [facility] River Comment on above:Result Comment: CUTOFF LEVEL: 200 NG/MLPerformed By: #### DSPMR ####[id number], [place] [address]VFRLFRGJEKRIXAG SCREEN,UNegative NormalNEGATIVEHealthSouth - [facility] Hospital of Toms RiverComment on above:Result Comment: CUTOFF LEVEL: 200 NG/MLBenzodiazepine Confirmatory testing has been sent to a reference laboratoryand will be reported separately. Although the benzodiazepine screening testprovides rapid results; the confirmatory test provide the most sensitive andspecific assessment of drug presence or absence in the urine.Performed By: #### DSPMR ####[id number], [place] [id number] SCREEN,U NegativeNormalNEGATIVEHealthSouth - Rehabilitation Hospital of Toms RiverComment on above:Result Comment: CUTOFF LEVEL: 50 NG/MLPerformed By: #### DSPMR ####[id number], [place] [address]LPCZMLN METABOLITE SCREEN,UNegativeNormalNEGSt. John's Episcopal Hospital South ShoreComment on above:Result Comment: CUTOFF LEVEL: 150 NG/ML Performed By: #### DSPMR ####[id number], [place] [address]ZYCN SCREEN COMMENT.SEE BELOWOwatonna ClinicComeaton rapids medical center on above:Result Comment: Drug screen results are presumptive and should not be used to assesscompliance withprescribed medication. Definitive confirmatory drug testinghas been added [...] questions should be directed to the laboratory medicaldirectors.Performed By: #### DSPMR ####[id number], [place] [address]WCWRANOWF SCREEN,UNegativeNormalNEGSt. John's Episcopal Hospital South ShoreComeaton rapids medical center on above:Result Comment: CUTOFF LEVEL: 150 NG/ML The metabolite L-omsem-tpznpeqpmexqvm (LAAM) is not detected by this method in concentrations that would be found in the urine of patients on LAAM therapy. Performed By: #### DSPMR ####[id number], [place] [address]TPWFUJZ SCREEN,UNegativeNormalNEGSt. John's Episcopal Hospital South ShoreComeaton rapids medical center on above:Result Comment: CUTOFF LEVEL: 300 NG/ML The opiate screen does not detect fentanyl, meperidine, or tramadol. Oxycodone is not consistently detected (refer to Oxycodone Screen, Urine result).Opiate/Oxycodone Confirmatory testing has been sent to a referencelaboratory and will be reported separately.Although the screening testsprovide rapid results; the confirmatory tests provide the most sensitive andspecific assessment of drug presence or absence in the urine. Performed By: #### DSPMR ####[id number], [place] [address]NPG SCREEN,UNegativeNormalNEGATIVEUH Jfk Johnson Rehabilitation InstituteComment on above:Result Comment: CUTOFF LEVEL: 25 NG/ML Cross-reactivity has been reported with dextromethorphan.Performed By: #### DSPMR ####[id number], [place] [address]Obkrh Progress Note-Cardiologyon 09-70-1099Wcdfbpc mass concService: Cardiology Subjective Data:DON ELKINS is a 67 year old Male who is Hospital Day # 2. Additional Information:Received from [facility] with PE and need for CABG eval, hypertensive - Heparin gtt- Stop Metoprolol- Start Carvedilol- Plan for OR with Dr. Gaston early next week Objective Data: Objective Information:T KPHLOxN2Qtiwu16.21544263/8797%Date/Time03/19 13: 13: 13: 13: 13:27Range(36.6C - 37C ) (79 - 83 ) (16 - 20 ) (149 - 173 )/ (83 - 92 ) (95% -97% )Highest temp of 37 C was recorded at 03/19 8:29 Pain with Activity reported at 03/19 7:19: 0Pain at Rest reported at 03/19 7:19: 0 Puqvela31/1 0:14: Weight in kg (Weight (kg)) 109.311/1 0:14: Weight in lbs ((lbs)) 24655 0:14: BMI (kg/m2) (BMI (kg/m2)) 36.646 Physical Exam: Constitutional: Resting in bed, NADHead/Neck: No JVDRespiratory/Thorax: CTABCardiovascular: RRR, S1 V8Xfwhldzphsneksxc: soft, NT/NDExtremities: Right wrist site of catheterization intact, normal pulse. Noperipheral edemaNeurological: alert and oriented d6Mitaloqzvbqao: Appropriate mood and behaviorSkin: psoriasis plaque over elbows and knees Medication: Medications: Continuous Medications 1. Heparin 25,000 units/ D5W 250 mL Infusion: 1000 units/hr IntraVenous Scheduled Medications 1. Aspirin Chewable: 81 mg Oral Daily2. Atorvastatin: 40 mg Oral Daily3. Carvedilol: 6.25 mg Oral 2 Times a Day4. Citalopram: 20 mg Oral Daily5. Docusate 50 mg - Senna 8.6 m tablet(s) Oral 2 Times a Day6. Fludrocortisone: 0.1 mg Oral Daily7. Heparin (Repeat Bolus) Injectable:4000 unit(s) IntraVenous Push Every 2Kpljk9. Hydrocortisone: 20 mg Oral 2 Times a Day9. Insulin Lispro Mild Corrective Scale: unit(s) SubCutaneous 3 Times a DayBefore Meals10. Levothyroxine: 150 microgram(s) Oral Daily11. Mupirocin 2%: 0.5 application(s) Each Nostril 2 Times a Day12. Pantoprazole: 40 mg Oral Daily13. Polyethylene Glycol: 17 gram(s) Oral Daily14. rOPINIRole: 2 mg Oral 3 Times a Day PRN Medications 1. Dextrose 50% in Water Injectable: 25 gram(s) IntraVenous Push Every 10Fcomhjy3. Glucagon Injectable: 1 mg IntraMuscular Every 15 [...] -0.5Bicarbonate, Calculated, Arterial 24.2 Glucose_POCT Trending View [id number] 13:58:00 19-Mar-2018 08:27:00Glucose-MNHL990 H 172 H Drug Screen, Pain Management [...] confirmatory test prCannabinoid Screen, Urine PRESUMPTIVE NEGATIVE PRESUM PTIVE NEGATIVE CUTOFF LEVEL: 50 NG/MLCocaine Metabolite Screen, Urine PRESUMPTIVE NEGATIVE PRESUMPTIVE NEGATIVE CUTOFF LEVEL: 150 NG/MLMethadone Screen, Urine PRESUMPTIVE NEGATIVE CUTOFF LEVEL: 150 NG/ML The metabolite N-willv-kjpzhasnbiqgpt (LAAM) is not detected by this method in concentrations that would be found in the urine of patients on LAAM therapy.Opiate Screen, Urine PRESUMPTIVE NEGATIVE CUTOFF LEVEL: 300 NG/ML The opiate screen does not detect fentanyl, meperidine, or tramadol. Oxycodone is not consistently detected (refer to Oxycodone Screen, Urine result).Opiate/Oxycodone Confirmatory testing has beenPCP Screen, Urine PRESUMPTIVE NEGATIVE CUTOFF LEVEL: 25 NG/ML Cross-reactivityhas been reported with dextromethorphan. Urinalysis 19-Mar-2018 10:09:00 ResultValueColor, Urine YELLOW Reference Range: STRAW,YELLOWAppearance, Urine CLEARSpecific Douglas, Urine 1.013pH, Urine 6.0Protein, Urine NEGATIVEGlucose, Urine NEGATIVEBlood, Urine NEGATIVEKetones, Urine NEGATIVEBilirubin, Urine NEGATIVEUrobilinogen, Urine 2.0 HNitrite, Urine NEGATIVELeukocyte Esterase, Urine NEGATIVE Complete Blood Count 19-Mar-2018 00:39:00 ResultValueWhite Blood Cell Count 12.7 HNucleated ErythrocyteCount 0.2Red Blood Cell Count 4.68HGB 14.7HCT 42.4MCV [...] >45 ---- >24 Y ---- < 40 40- 60 >60.Cholesterol/HDL Ratio 3.5 REF VALUESDESIRABLE < 3.4HIGH RISK > 5.0LDL, Level 82 .NEAR BORD AGE DESIRABLE OPTIMAL HIGH HIGH VERY [...] 130 ---- Thyroid Stimulating Hormone, Serum 19-Mar-2018 00: 39:00 ResultValueThyroid Stimulating Hormone, Serum 2.51 Radiology Results: [...] (22+/-6mL/m2)LA Vol A2C: 36.3 mlLA Vol BP: 44.5mlLA Vol Index A4C: 19.6ml/m2LA Vol Index A2C: 16.6 ml/m2LA Vol Index BP: 20.4 ml/m2LA Area A4C: 17. 4cm2LA Area A2C: 14.2 cm2LA Major Paxton A4C: 6.0 cmLA Major Paxton A2C: 4.7 cmLA Volume Index: 15.2 ml/m2RA VOLUME BY A/L METHOD: Normal Ranges:RA Area A4C: 12.8 tj6Z-RDNC MEASUREMENTS: Normal Ranges:AoRoot: 2.90 cm (2.0-3.7cm)LAs: 3.80 cm (2.7-4.0cm)AORTA MEASUREMENTS: [...] e' 0.05 m/sMV medial e' 0.05 m/sMV ADur: 148.00 msecE/e' Ratio: 11.92 (<8.0)a' 0.14 m/sMV DT: 261 msec (150-240 msec)PulmV Sys Michele: 51.80 cm/sPulmV Pablo Michele: 29.80 cm/sPulmV S/D Michele: 1.70PulmV A Revs Michele: 31.50 cm/sPulmV A Revs Dur:116.00 msecMITRAL VALVE: NormalRanges:MV DT: 261 msec (150-240msec)AORTIC VALVE: Normal Ranges:AoV Vmax: 1.02 m/s (<1.7m/s)AoV Peak P.2 mmHg (<20mmHg)LVOT Max Michele: 0.87 m/s (<1.1m/s)LVOTVTI: 17.70 cmRIGHT VENTRICLE:RV 1 3.22 cmRV 2 2.33 cmRV 3 7.96 cmTAPSE: 19.1 mmRV s' 0.13 m/sTRICUSPID VALVE/RVSP: Normal Ranges:IVC Diam: 2.03 cmPULMONIC VALVE: Normal Ranges:PV Max Michele: 1.0 m/s (0.6-0.9m/s)PV Max P.2 mmHgPulmonary Veins:PulmV A Revs Dur: 116.00 msecPulmV A Revs Michele: 31.50 cm/sPulmV Pablo Michele: 29.80 cm/sPulmV S/D Michele: 1.70PulmV Sys Michele: 51.80 cm/s Echocardiogram [Mar 19 2018 2: 30PM] Impression: 1. No radiographic evidence of acute cardiopulmonary process. Xray Chest 2 View PA + Lateral [Mar 19 2018 2:19PM] Assessment and Plan:Assessment:67 yo M with HTN, DLD, T2DM, Addisson's, GERD, prostate ca s/p prostatectomy [id number], hypothyroidism, psoriasis, and most recently diagnosed with a PE andmultivessel CAD transferred to medicine at [facility] from [facility] on03/18for CABG eval. PE- unprovoked subsegmental PE. Hemodynamically stable, not requiringsupplemental oxygen.- Repeat TTE in the AM to assess for Right heart strain- 2V CXR --> No radiographic evidenceof acute cardiopulmonary process.- Consider Vascular medicine consult [...] on PPICode status: Full Electronic Signatures:Vito Patino (HEALTH AND SAFETY TECH-IRON WORKER APPRENTICE) (Signed 19-Mar-2018 15:16)Authored: Service, Subjective Data, Objective Data, Assessment and Plan,Signature/C osignature/AttestationMor Calderon) (Signed 19-Mar-2018 15:57)Co-Signer: Service, Subjective Data, Objective Data, Assessment and Plan,Signature/Cosignature/Attestation Last Updated: 19-Mar-2018 15:57 by Mor Calderon)[facility] ClinicDischarge Planning Noteon 03-19-2018 Discharge Planning NoteDischarge Needs Assessment: Discharge Planning Assessment [id number] Discharge Planning Assessment Completed byClarisa Villalobos RN Care [phone] Readmission Within the Last 30 Daysno previous admission in last 30 days Primary Care PhysicianUnknown PCP at leeds Patient Learning: Factors that Impact Ability to Learnlearning disabilities, visualproblems(1) Other Factors: Functional Screen: In the recent/past 2-4 weeks, patient or family havenoticedno issues that require a rehabilitation consult at this time(2) Discharge Planning:Discharge Plannin03/19/18 0648: Patient admitted to [facility] from [facility] with 4x vesselblockage and CABG consult. recent partial root canalbegun this past Fridaybut no permanent cap placed yet. Patient lives at home with and pets. Nolines or drips on admission, will restart heparin at 0900 this morning, patientwas given 10mg Eliquis at [facility] at 9pm 03/18/18. no pain onadmission. Jeannie Shelton RN 03-19-18 1040 CareCoordinator Note: Met with patient to discuss dischargeplanning. [...] PCP, cannot recall name. [facility] added to outpatient medication review. Patient states nodifficulty obtaining or paying for medications. Patient is not medically readyfor discharge. management coordinator will follow. Clarisa Villalobos RN Care [phone] 03-19-18 1530 Clinical Research Director Note: Patient discussed during interdisciplinaryrounds. Plan for OR next week. management coordinator will follow. Clarisa Villalobos RNCare Coordinator [phone] 03-24-18 1435 Clinical Research Director Note: Patient discussed during interdisciplinaryrounds. Plan for OR friday. management coordinator will follow. Clarisa Villalobos RNCare Coordinator [phone] 03-27-18 1500 Clinical Research Director Note: Patient discussed during interdisciplinaryrounds. Plan for CABG friday. Clarisa Villalobos RN Clinical Research Director [phone] Clinical Research Director Note: 04/02/2018. Met with patient to discuss dischargeplanning. Patient is a 67 year old male from home s/p cardiac surgery.Patient will require home care at discharge. Patient provided a Moving RightAlong after heart Surgery booklet and a home acre providers list. Willcontinue to monitor patient for all home going needs. Mary Elder RN CC Clinical Research Director Note 04/07/18Met with patient to finalize discharge plans. Pt felt he had no needs whenreturning home but was agreeable to follow the CABG care path. Addressconfirmed. All questions answered. Will continue to monitor patient's homegoingneeds. Claudio Askew RN CC Discharge note 04/07/18.RN reviewed discharge orders with pt and family. An swered all questions aboutmedications, follow up appointments, wound care, etc. Pt and family verbalizedunderstanding. Tele and IV d/c'd, cath intact. Pt has all scripts andbelongings. [facility] Mary Smith RN. Final Disposition/Discharge:Disposition/Discharge Information: Discharge/Transfer Information: Discharge/Transfer Date/Veik16-Zzh-6878 15:33 Discharged Accompanied Byspouse; family member Discharge Modewheelchair Transportation Methodprivate car Valuables/Medications/Belongings Returnedyes Belongings Commentpt has all belongings Final [facility] - New Electronic Signatures:Jeannie Shelton (RN) (Signed 19-Mar-2018 06:51)Authored:Discharge Planning Lillie Martinez (CLIN COOR) (Signed 02-Apr-2018 13:46)Authored: DischargePlanning Claudio Andrade (RN) (Signed 07-Apr-2018 14:13)Authored: Discharge Planning Mary Dahl (RN) (Signed 07-Apr-2018 15:57)Authored: Discharge Planning Note, Final Disposition/DischargeClarisa Villalobos (CLIN COOR) (Signed 27-Mar-2018 15:19)Authored: Discharge Planning Note Last Updated: 07-Apr-2018 15:57 by Mary Smith (RN) References:1. Data Referenced From 5. Education 1 05/19/2017 12:25 AM2. Data Referenced From Admission Risk Screen - Adult 03/19/2018 12:25 AMNCook HospitalEMR ADDONon [id number] CONFIRMATIONREQUEST REC'DNCook HospitalComment on above: Performed By: #### CBC ####[id number], [place] [address]NQJPB CONFIRMATIONREQUEST REC'DNormalHealthSouth - Rehabilitation Hospital of Toms RiverComment on above: Performed By: #### EMRAD ####NO LOCATION NEEDEDADDON CONFIRMATIONREQUEST REC'D Owatonna ClinicComment on above:Performed By: #### EMRAD ####NO LOCATION NEEDEDGLUCOSE-POCTon 66-99-7164Owjfjtp mass benv362 mg/bAMlwu3422 Wilson StreetComment on above:Performed By: #### CBC ####[id number], [place] [address]Xoccybk mass ajgw471 mg/tUSwnq4622 Wilson StreetComment on above:Performed By: #### CBC ####[id number], [place] [address]Swapdvk mass pqzp806 mg/uMGlxx6922 Wilson StreetComment on above:Performed By: #### GLUPO ####[id number], [place] [address]Qggezol mass dxgn242 mg/wLBvmr9822 Wilson StreetComment on above:Performed By: #### GLUPO ####[id number], [place] [address]VPCYIFOPHH A1Con 88-20-3885Kyrdmej mass pdfl168 mg/dLNormVibra Long Term Acute Care HospitalComment on above:Performed By: #### EMRAD ####NO LOCATION NEEDEDHemoglobin A1c/Hemoglobin.total mass fraction (Bld)7.9 %Owatonna ClinicComment on above:Result Comment: Diagnosis of Diabetes-Adults Non-Diabetic: < or = 5.6% Increased risk for developing diabetes: 5.7-6.4% Diagnostic of diabetes: > or = 6.5%. Monitoring of Diabetes Age (y) Therapeutic Goal (%) Adults: >18 <7.0 Pediatrics: 13-18 <7.5 7-12 <8.0 0- 6 7.5-8.5 [employer] Diabetes Association. Diabetes Care 33(S1), May 2009.Performed By: #### EMRAD ####NO LOCATION NEEDEDHEPARIN ASSAY,UFHon 47-33-7700UABIPSY ASSAY,UFH0.4 IU/mLNormalHealthSouth - Rehabilitation Hospital of Toms RiverComment on above:Result Comment: The therapeutic reference range for UFH may be either 0.3-0.6 IU/mL or 0.3-0.7 IU/mL based on the clinical setting for anticoagulant therapy and the associated nomogram used. For heparin dosing guidelines based on clinical scenario and Heparin Assay results, please refer to local Pharmacy and the [facility] Guidelines for Anticoagulation therapy available on the [facility] intranet at:https://[facility] o[facility] cityApajasheltering arms [email or web address]/Pharmacy/Pages/[facility]_Guide lines_for_Anticoagu.aspxPerformed By: #### EMRAD ####NO LOCATION NEEDEDHEPARIN ASSAY,UFH0.6 IU/mLNCook HospitalComment on above:Result Comment: The therapeutic reference range for UFH may be either 0.3-0.6 IU/mL or 0.3-0.7 IU/mL based on the clinical setting for anticoagulant therapy and the associated nomogram used. For heparin dosing guidelines based on clinical scenario and Heparin Assay results, please refer to local Pharmacy and [facility] Guidelines for Anticoagulation therapy available on the [facility] intranet at:[email or web address]/Pharmacy/Pages/[facility]_Guide lines_for_Anticoagu.aspxPerformed By: #### EMRAD ####NO LOCATION NEEDEDHEPATIC FUNCTION PANELon 49-38-8417LYB enzyme act/vol50 U/BVzicwn86 - 136[facility] Toms RiverComment on above:Performed By: #### CBC ####[id number], [place] [address]VBS enzyme act/xiz201 U/[facility]10 - 52[facility] of Toms RiverComment on above:Result Comment: Patients treated with Sulfasalazine may generate falsely decreased results for ALT.Performed By: #### CBC ####[id number], [place] [address]BQA enzyme act/vol75 U/LHigh9 - 39[facility] of Toms RiverComment on above:Performed By: #### CBC ####[id number], [place] [address]Tbdgusblu mass conc0.9 mg/dLNormal0.0 - 1.2[facility] Toms RiverComment on above:Performed By: #### CBC ####[id number], [place] [address]Ukovtkksd.direct mass conc0.2 mg/dLNormal0.0 - 0.3[facility] Toms RiverComment on above:Performed By: #### CBC ####[id number], [place] [address]Imispus mass conc6.6 g/dLNormal6.4 - 8.2[facility] Toms RiverComment on above:Performed By: #### CBC ####[id number], [place] [address]Nkxlsqw mass conc4.1 g/dLNormal3.4 - 5.0[facility] Toms RiverComment on above:Performed By: #### CBC ####[id number], [place] [address]Miiqombay By: #### RENAL ####[id number], [place] [address]Spxnsdq and Physical-( Nightfloat admission note )on 57-03-8787Eeluybk and Physical-( Nightfloat admission note )History of Present Illness:Medical Student:Medical Student: Nightfloat admission note Admission Reason: Transfer from [facility] for CABG evalHPI:CC:Transfered from CABG eval HPI:Mr. Elkins is a 67 yo Mwith HTN, DLD, T2DM, Addisson's, GERD, prostate ca s/pprostatectomy in 2011, hypothyroidism, psoriasis transferred to medicine at [facility] from [facility] on 03/18 for CABG eval Patient reports 2 month h/o intermittent exertional left sided chest painlasting less than 30 min, relieved with rest, with no other associatedsymptoms. He woke up 03/16 at 1AM with chest pressure associated with dyspnea,and his took him to [facility] where he was diagnosed with a PE,started on heparin gtt, then transferred to [facility]. There, hewas found to have a trop leak which peaked at 2.25, with no EKG changes (NSRwith no Q, T or ST waves/segment abnormalities). Bedside US wasnegative forDVT. TTE and LHC/cors were performed, see [...] CHF, HTN, DM and DLD. He quit bysvqui18 years ago. Has an occasional beer, and deniesany drug use. 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 12 points ROS obtained and negative unless otherwise stated above Prior cardiac work up. CTA at [place]:Pulmonary emboli involving the bilateral lobar segmental, and severalsubsegmental branches (RUL, RML, RLL, FIDEL, LLL). LHC/cors at [facility]:LAD prox: 30%LAD mid: 95%Diag 3rd: 99%RCA: 85 %PLV: 50%Circ: 95% TTE at [facility]:EF 60-65%Mild LA dialtionNo valvular abnormalities PMH; as aboveand lumbar Degenerative disk disease,PSH: as above and [...] times a dayibuprofen 600 mg oral tablet: o rally 2 times a daylevothyroxine 150 mcg (0.15 [...] 20 mg oral tablet: 1 tab(s) orally oncea day (at bedtime). Objective: Objective Information: T KWQKVaF6Zikwu87.51180988/9297%Date/Time03/18 23: 23: 23: 0:0503/18 23:30Range(36.6C - 36.6C ) (79 - 79 ) (20 - 20 ) (173 - 173 )/ (92 - 92 ) (97%- 97% ) Oobdeuj94/ 0:14: Weight in kg (Weight (kg)) 109.311/1 0:14: Weight inlbs ((lbs)) 02800/1 0:14: BMI (kg/m2) (BMI (kg/m2)) 36.646 Physical Exam: Constitutional: Well developed, awake/alert/oriented x3, no distress, alert andcooperativeEyes: PERRL, EOMI, clear scleraENMT: mucous membranes moist, no apparent injury, no lesions seenHead/Neck: Neck supple, no apparent injury, thyroid without mass or tenderness,No JVD, trachea midline, no bruitsRespiratory/Thorax: Patentairways, CTAB, normal breath sounds with good chestexpansion, thorax symmetricCardiovascular: Regular, rate and rhythm, no murmurs, 2+ equal pulses of theextremities, normal S 1and S 2Gastrointestinal: Nondistended, soft, non- tender, no rebound tenderness orguarding, no masses palpable, no organomegaly, +BS, no bruitsMusculoskeletal: ROM intact, no joint swelling, normal strengthExtremities: Right wrist site of catheterization intact, normal pulse. normalextremities, no cyanosis edema, contusions or wounds, no clubbingSkin: psoriasis plaque over elbows and knees Medications: Medications: Continuous Medications No continuous medications are active Scheduled Medications 1. Aspirin Chewable: 81 mg Oral Daily2. Citalopram: 20 mgOral Daily3. Fludrocortisone: 0.1 mg Oral Daily4. Heparin SubCutaneous: 5000 unit(s) SubCutaneous Every 8 Hours5. Hydrocortisone: 20 mg Oral 2 Times a Day6. Insulin Lispro Mild Corrective Scale: unit(s) SubCutaneous Every 4 Hours 7. Levothyroxine: 150 microgram(s) Oral Daily8. Pantoprazole: 40 mg Oral Daily PRN Medications 1. Dextrose 50% in Water Injectable: 25 gram(s) IntraVenous Push Every 95Eptjmbw3. Glucagon Injectable: 1 mg IntraMuscular Every 15 Minutes Recent Lab Results: Results:pending Radiology Results: Results:pending Assessment and Plan:Assessment:67 yo M with HTN, DLD, T2DM, Addisson's, GERD, prostate ca s/p prostatectomy [id number], hypothyroidism, psoriasis, and most recently diagnosed with a PE andmultivessel CAD transferred to medicine at [facility] from [facility] on03/18 for CABG eval. Acute problems: [...] Repeating lipid profile #Hypothyroidism- Continue home levothyroxine- RepeatTSH Diet: NPOAccess: PIVDVT ppx: On Eliquis and restarting high intensity heparin gtt at 9 am ON 11/1GI ppx: on PPICode status: Full Signatures/Attestation/Certification:Attending AttestationI saw and evaluated the patient. I [...] patient (as noted in the above attestation) [id number] Provider Inpatient Certification StatementI certify this patientsneed for inpatient care based on the above documentation including; the orderto admit as inpatient, the anticipated length of stay, diagnosis, problem listand plan of care, and discharge plan. Electronic Signatures:Mor Calderon) (Signed 19-Mar-2018 15:57)Authored: Signatures/Attestation/CertificationCo- Signer: Comorbidities, Signatures/Attestation/CertificationTomeka Shrestha (PAC) (Signed 19-Mar-2018 07:13)Authored: Comorbidities, Signatures/ Attestation/CertificationJim Titus (Resident)) (Signed 19-Mar-2018 01:07)Authored: History of Present Illness, Allergies, Medications Prior toAdmission, Objective, Assessment and Plan Last Updated: 19-Mar-2018 15:57 by Mor Calderon)NormalHealthSouth - Rehabilitation Hospital of Toms RiverLIPID PANEL (CORONARY RISK 2) on 10-39-6792Uedcurkdrla in HDL mass conc44.5 mg/dLNormalUH Jfk Johnson Rehabilitation InstituteComment on above:Result Comment: . AGE VERY LOW LOW NORMAL HIGH 0-19 Y < 35 < 40 40-45 ---- 20-24 Y ---- < 40 >45 ---- >24 Y ---- < 40 40-60 >60. Performed By: #### LIPID ####[id number] [place] [address] Cholesterol in LDL mass conc82 mg/dLNormal0 - 99[facility] Comment on above:Result Comment: . NEAR BORD AGE DESIRABLE OPTIMAL HIGH HIGH VERY HIGH 0-19 Y 0 - 109 --- 110-129 >/= 130 ---- 20-24 Y 0 - 119 --- 120-159 >/= 160 ---- >24 Y 0 - 99 100-129 130-159 160-189 >/=190.Performed By: #### LIPID ####[id number], [place] [address]Lriqilotaom in VLDL mass conc 28 mg/dLNormal0 - 40[facility] Toms RiverComment on above:Performed By: #### LIPID ####[id number], [place] [address]Rywawzmrulb mass lptj805 mg/dLNormal0 - 199[facility] Toms RiverComment on above:Result Comment: . AGE DESIRABLE BORDERLINE HIGH HIGH 0-19 Y 0 - 169 170 - 199 >/= 200 20-24 Y 0 - 189 190 - 224 >/= 225 >24 Y 0 - 199 200 - 239 >/= 240 All ranges are based on fasting samples. Specific therapeutic targets will vary based on patient- specific cardiac risk.. Pediatric guidelines reference:Pediatrics 2011, 128(S5). Adult guidelines reference: NCEP ATPIII Guidelines, LENCHO 2001, 258:2486-97. Venipuncture immediately after or during the administration of Metamizole may le ad to falsely low results. Testing should be performed immediately prior to Metamizole dosing.Performed By: #### LIPID ####[id number], [place] [address]Bnftgjkxcup.total/Cholesterol in HDL mass ratio3.5 {ratio}NormalHealthSouth - Rehabilitation Hospital of Toms RiverComment on above:Result Comment: REF VALUESDESIRABLE < 3.4HIGH RISK > 5.0Performed By: #### LIPID ####[id number], [place] [address]Ljmxzxbxznhi mass qzxg199 mg/dLNormal0 - 149[facility] Comment on above:Result Comment: . AGE DESIRABLE BORDERLINE HIGH HIGH VERY [...] 200- 499 >/= 500. Venipuncture immediately after orduring the administration of Metamizole may lead to falsely low results. Testing should be performed immediately prior to Metamizole dosing.Performed By: #### LIPID ####[id number], [place] [address]Mulazej Profile - Adult v2on 03-31-6055Qtpbtkw mass concProfile:Initial Info:How to be AddressedLarrySpoken Language PreferredEnglishSource of InformationpatientAre you currently using the Personal Electronic Health Record or [facility]. [facility] Reason for Admissionheart blocks and blood clot in my lungsArrived FromhospitalPatient Belongingsremains with patientPatient Belongings Remaining with Patientcell phone/electronics; clothing;vision aids; medicaldevice; medication(s)Medications Brought to HospitalyesMedication Dispositionsent home with family General Health:Weight in kg109.3 kilogram(s)Weight in ttt473 pound(s)Height in feet5 feetHeight in in ches8 inch(es)Height in cm172.7 centimeter(s)BMI (kg/m2)36.646 square meterWeight [...] for youAddisons diseaseRecent Change in Mood/Behaviorrecent memoryMajor Change/Loss/Stressor/Fearsdenies Substance:Current or Former Substance Use never: Cigarette/Tobacco, e- Cigarette/Vaping,Alcohol, Street Drugs Health Mgmt:Symptoms/Conditions Managed at HomeimmunologicalImmunological Managementmanaged Relationship/Environ:Primary Source of Support/Comfortsignificant otherLives Withsignificant otherLiving ArrangementshouseResource/Environmental ConcernsnoneAnticipated Transition Toinn[facility] rehabilitation facilityServices [facility]ticipated at [facility]; rehabilitation servicesSignificant IndicatorsComplete Information Review: Allergies, Home Meds and Significant Events have been Reviewed and Verifiedwith Patient/Familyno ALLERGY, INTOLERANCE, ADVERSE EVENT: Allergies: No Known Allergies: Active Electronic Signatures:Jeannie Shelton (ANDREA) (Signed 19-Mar-2018 00:25)Authored: Profile, Additional Information Last Updated: 19-Mar-2018 00:25 by Jeannie Shelton (ANDREA)NormalHealth[facility] - [facility] RENAL FUNCTION PANELon 30-96-5728Okphxyy mass conc3.9 g/dLNormal3.4 - 5.0[facility] Toms RiverComment on above:Performed By: #### CBC ####[id number], [place] [address]Gavkf gap 3 molar conc16 mmol/RVkuwhx14 - 20[facility] Toms RiverComment on above:Performed By: #### CBC ####[id number], [place] [address]Flqfmah mass conc9.4 mg/dLNormal8.6 - 10.6[facility] Toms RiverComment on above:Performed By: #### CBC ####[id number], [place] [address]Zuftzxuj molar mpyj458 mmol/QNzhjld90 - 107[facility] Toms RiverComment on above:Performed By: #### CBC ####[id number], [place] [address]Kucchemsv By: #### RENAL ####[id number], [place] [address]Vlgjjvmzeo mass conc1.36 mg/dLHigh0.50 - 1.30[facility] Johnson Rehabilitation InstituteComment on above:Performed By: #### CBC ####[id number], [place] [address]OOD-RNZQWMU AM.63 mL/min/1.45y8Iwbese>60[facility] Toms RiverComment on above:Result Comment: CALCULATIONS OF ESTIMATED GFR ARE PERFORMED USING THE MDRD STUDY EQUATION FOR THE IDMS-TRACEABLE CREATININE METHODS. CLIN CHEM 2007;53:766-72Performed By: #### CBC ####[id number], [place] [address]HXH-XWP AM.52 mL/min/1.41l7Hkcgyync>60[facility] Toms RiverComment on above:Performed By: #### CBC ####[id number], [place] [address]Xlhjxjo mass nyof271 mg/yOAohm79 - 99[facility] Rehabilitation InstituteComment on above:Performed By: #### CBC ####[id number], [place] [address]YLT6 molar conc (Bld)23 mmol/ATwehgw09 - 32[facility] Toms RiverComment on above:Performed By: #### CBC ####[id number], [place] [address]Kqkmulpdp By: #### RENAL ####[id number], [place] [address]Wthuzdrgu mass conc3.6 mg/dLNormal2.5 - 4.9[facility] Toms RiverComment on above:Result Comment: The performance characteristics of phosphorus testing in heparinized plasma have been validated by the individual laboratory site where testing is performed. Testing on heparinized plasma is not approved by the FDA; however, such approval is not necessary. Performed By: #### CBC ####[id number], [place] [address]Aflchxiuc molar conc3.9 mmol/LNormal3.5 - 5.3[facility] Toms RiverComment on above: Performed By: #### CBC ####[id number], [place] [address]Srmxss molar sfra473 mmol/XBaxmkf958 - 145[facility] Toms RiverComment on above: Performed By: #### CBC ####[id number], [place] [address]Bogk nitrogen mass conc25 mg/dLHigh6 - 23[facility] Toms RiverComment on above: Performed By: #### CBC ####[id number], [place] [address]Govay gap 3 molar conc17 mmol/MQfydbo67 - 20[facility] Toms RiverComment on above: Performed By: #### RENAL ####[id number], [place] [address]Jumohzo mass conc9.2 mg/dLNormal8.6 - 10.6[facility] Toms RiverComment on above: Performed By: #### RENAL ####[id number], [place] [address]Aipfodckub mass conc1.42 mg/dLHigh0.50 - 1.30[facility] Toms RiverComment on above: Performed By: #### RENAL ####[id number], [place] [address]NOQ- AM.61 mL/min/1.78h8Iurpyy>60[facility] Toms RiverComment on above: Result Comment: CALCULATIONS OF ESTIMATED GFR ARE PERFORMED USING THE MDRD STUDY EQUATION FOR THE IDMS-TRACEABLE CREATININE METHODS. CLIN CHEM 2007;53:766-72 Performed By: #### RENAL ####[id number], [place] [address]RMS-QAO AM.50 mL/min/1.05s5Wojykbin>60[facility] Toms RiverComment on above:Performed By: #### RENAL ####[id number] [place] [address] Glucose mass luhn366 mg/qRDvqt58 - 99UH Rivers Medical CenterComment on above:Performed By: #### RENAL ####[id number] [place] [address] Phosphate mass conc3.5 mg/dLNormal2.5 - 4.9[facility] RiverComment on above:Result Comment: The performance characteristics of phosphorus testing in heparinized plasma have been validated by the individual laboratory site where testing is performed. Testing on heparinizedplasma is not approved by the FDA; however, such approval is not necessary.Performed By: #### RENAL ####[id number], [place] [address]Ravwdpuys molar conc4.1 mmol/L Normal3.5 - 5.3[facility] RiverComment on above:Performed By: #### RENAL ####[id number], [place] [address]Psrmib molar fusq372 mmol/L Ykdbih852 - 145[facility] RiverComment on above:Performed By: #### RENAL ####[id number], [place] [address]Droz nitrogen mass conc23 mg/dLNormal6 - 23[facility] RiverComment on above:Performed By: #### RENAL ####[id number], [place] [address]PFZJOQP-GVPJVDKOZPFV RED CELLSon 03-75-1772HZBLALF-LEUKOREDUCED RED CELLSORDER RECDNormalHealth[facility] Toms RiverComment on above:Performed By: #### EMRAD ####NO LOCATION NEEDED STAPH/MRSA SCREENon 50-42-2045PLPZP/MRSA SCREENPATIENT: DON ELKINS LOCATION: [address]#: [id number] : 50 AGE: SEX: M ORDERED BY: FESTUS PERKINS: ANTERIOR NARES COLLECTED: 03/19/18 09:34ANTIBIOTICS AT [facility].: RECEIVED : 03/19/18 11:09SITE: NARES R E S U L T S STAPH/MRSA SCREEN FINAL 03/20/18 12:15 NO Staphylococcus aureus ISOLATED.Normal [facility] RiverComment on above:Performed By: #### COAGS ####[id number], [place] [address]ND CHEST 1 VIEWon 26-13-2611SJ CHEST 1 VIEWMRN: [id number] Name: DON ELKINS STUDY:TH CHEST 1 VIEW; 03/19/2018 6:21 am INDICATION:Signs/Symptoms: admisison Xray. COMPARISON:None ORDERING CLINICIAN:JIM TITUS FINDINGS:The cardiomediastinal silhouette is within normal limits. There is no focal consolidation, edema or pneumothorax. No sizeablepleural effusion. No acute osseous abnormality. IMPRESSION:1. No radiographic evidence of acute cardiopulmonary process. Electronically signed by: Vivian TATEVail Health HospitalTH CHEST 2 VIEW PA AND LATon [id number] CHEST 2 VIEW PA AND LATMRN: [id number] Name: DON ELKINS STUDY:CHEST 2 VIEW PA AND LAT; 03/19/2018 12:56 pm INDICATION:Signs/Symptoms: preop cabg ROOM P0453-8. COMPARISON:Chest radiograph from 03/19/2018 ORDERING CLINICIAN:KYLE PERKINS FINDINGS:The cardiomediastinal silhouette is stable and within normal limits. There is no focal consolidation, edema or pneumothorax. No sizeablepleural effusion. No acute osseous abnormality. IMPRESSION:1. No radiographic evidence of acute cardiopulmonary process. Electronically signed by: Vivian TATEVail Health HospitalTSHon 75-94-2753Onmehpjzgcf Qn2.51 m[IU]/LNormal0.44 - 3.98[facility] Comment on above:Result Comment: TSH testing is performed using different testing methodology at [facility] than at other [facility]. Direct result comparisons should only be made within the same method.. Patients receiving more than 5 mg/day of biotin may have interference in test results. A sample should be taken no sooner than eight hours after previous dose. Contact [phone] for additional information.Performed By: #### TSH2 ####[id number], [place] [address]PTZLNSDBOPkf 28-22-2517KKOREAMGWRQJEWNRwkbipHVUNI [facility] RiverComment on above:Performed By: #### UA ####[id number], [place] [address]ZWVKVFYVFHmarzspfConpndBRIXVZQOBQ [facility] CenterComment on above:Performed By: #### UA ####[id number], [place] [address]RNWRERwnztqzdBbowfrBUPHCWXVTA [facility] Comment on above:Performed By: #### UA ####[id number], [place] [address]WHJPOHOJVSMGaptosSYTAD,YELLOWHealthSouth - [facility] of Toms RiverComment on above: Performed By: #### UA ####[id number], [place] [address]AHSGTIS NegativeNormalNEGATIVEHealthSouth - [facility] of Toms RiverComment on above:Performed By: #### UA ####[id number], [place] [address]PALFDODLsouamkgRlabjn NEGATIVEHealthSouth - [facility] Toms RiverComment on above:Performed By: #### UA ####[id number], [place] [address]GCWKHENIA ESTERASENegativeNormal NEGATIVEHealthSouth - [facility] Toms RiverComment on above:Performed By: #### UA ####[id number], [place] [address]KYOYCUDTrzkzvkcBdxbbhXORYLCSJHN [facility] CenterComment on above:Performed By: #### UA ####[id number], [place] [address]yG8.0Tnfjwt7.0 - 8.0[facility] Comment on above:Performed By: #### UA ####[id number], [place] [address]Phhjmts mass concNegativeNormalNEGATIVEHealth[facility] - [facility] of Toms RiverComment on above:Performed By: #### UA ####[id number] [place] [address] SPECIFIC GRAVITY1.860Mutner4.005 - 1.035[facility] RiverComment on above:Performed By: #### UA ####[id number] [place] [address] UROBILINOGEN2.0 mg/dLHigh0.0 - 1.9[facility] RiverComment on above: Result Comment: SOME PIGMENTS AND MEDICATIONS MAY CAUSE AFALSE POSITIVE UROBILINOGENPerformed By: #### UA ####[id number] [id number] URINE CULTURE,BACTERIALon 52-57-7485KIMFE CULTURE,BACTERIALPATIENT: DON ELKINS LOCATION: [address]#: [id number] : 50 AGE: SEX: M ORDERED BY: FESTUS PERKINS: URINE COLLECTED: 03/19/18 10:09[facility]OTICS AT [facility].:RECEIVED : 03/19/18 13:55SITE: Clean Catch/Voided R E S U L T S URINE CULTURE,BACTERIAL FINAL 03/20/18 08:55 NO SIGNIFICANT GROWTH. NormalHealth[facility] Toms RiverComment on above:Performed By: #### CBC ####[id number] [place] [address] Vital Signs Date TimeVital SignValuePerforming PegrkmqbyKhgmefsw75-70-5220 10:51-0400Body fjkxyn667.6 cmOscar Arvizu MD Work Phone: [facility]landHzegrpuhcy69-57-0930 10:51-0400Body mass index (BMI) [Ratio]35.99 kg/m2Oscar Arvizu MD Work Phone: [facility]landYqngnpijtt53-54-7855 10:51-0400Body .15 kgOscar Arvizu MD Work Phone: [place] [address]Vjnbpwvyop02-52-9844 10:51-0400Diastolic blood iiwqzyks28 mm[Hg]Oscar Arvizu MD Work Phone: [place] [address]Ccufylwuve76-12-7733 10:51-0400Heart rate71 /min Oscar Arvizu MD Work Phone: [place] [address]Llfofkvlzu27-63-9579 10:51-0400Systolic blood cmdlkoix902 mm[Hg]Oscar Arvizu MD Work Phone: [facility]landQflrgawjio12-40-2503 09:48-0400Body .6 cmAkwaku Estrada MD Work Phone: [address] [place], [place] [address]Sbcwpjtrrg52-78-7409 09:48-0400Body mass index (BMI) [Ratio]36.64 kg/j0YowzlTyler Estrada MD Work Phone: [phone])[address]07-14-2025 09:48-0400Body gawzpa270.97 kgTylre Estrada MD Work Phone: 1(835)[facility] [place], [place] [address]Czmlbrxifi75-61-1543 09:48-0400Diastolic blood dinlojwv17 mm[Hg]Tyler Estrada MD Work Phone: [phone] [place], [place] [address]Yuwbcguqmu99-26-6225 09:48-0400Heart rate74 /min Tyler Estrada MD Work Phone: [phone] [place], [place] [address]Sszjzpzcbt83-25-0150 09:48-0400Respiratory rate16 /minTyler Estrada MD Work Phone: [phone] [place], [place] [address]Pbtxwtbcjz94-20-8023 09:48-0174JeJ2% (BldA) [Mass fraction]97 %Tyler Estrada MD Work Phone: 1(402)625-[address] [place], [place] [address]Qrhlymuvdu06-34-2702 09:48-0400Systolic blood zkwwtzyz726 mm[Hg]Tyler Estrada MD Work Phone: [phone])[address]04-10-2025 09:10-0400Body .64 cmSal Sabillon MD Work Phone: [facility]04-10-2025 09:10-0400 Body mass index (BMI) [Ratio]35.2 kg/i2SmofbrSal Sabillon MD Work Phone: [facility]04-10-2025 09:10-0400 Body fvhiomlhwyc42.4 [degF]Sal Sabillon MD Work Phone: 1([phone] [place], [place] [address]48904-10-2025 09:10-0400 Body ovjwem99.88 kgSal Sabillon MD Work Phone: 1(558)709-[address] [place], [place] [address]48904-10-2025 09:10-0400 Diastolic blood eshxvgsg04 mm[Hg]Sal Sabillon MD Work Phone: [phone])[address]04-10-2025 09:10-0400 Heart rate73 /Mariela Sabillon MD Work Phone: 1(090)[address] [place], [place] 6396004-10-2025 09:10-0400 Respiratory rate16 /Mariela Sabillon MD Work Phone: [phone])[address] [place], [place] 6396004-10-2025 09:10-0400 SaO2% (BldA) [Mass fraction]97 %Sal Sabillon MD Work Phone: [phone])[address] [place], [place] 6396004-10-2025 09:10-0400 Systolic blood rkdyoipz565 mm[Hg]Sal Sabillon MD Work Phone: [phone])[address] [place], [place] 6396001-06-2025 09:55-0500 Body ctppah714.2 Dakota Estrada MD Work Phone: [phone])[address]01-06-2025 09:55-0500Body mass index (BMI) [Ratio]36.34 kg/z9QndkmTyler Estrada MD Work Phone: [phone])[address]01-06-2025 09:55-0500Body jysuyo968.23 kgTyler Estrada MD Work Phone: [phone])[address]01-06-2025 09:55-0500Diastolic blood jrgfurxz81 mm[Hg]Tyler Estrada MD Work Phone: 1(458)[address]01-06-2025 09:55-0500Heart rate79 /min Tyler Estrada MD Work Phone: 1(180)059-[address] [place], [place] [address]Zjrxhxntsq71-19-3696 09:55-0500Respiratory rate18 /minTyler Estrada MD Work Phone: 1(221)676-[address] [place], [place] [address]Geaidfukpf13-97-2834 09:55-0500Systolic blood phaxihaf040 mm[Hg]Tyler Estrada MD Work Phone: [facility]landRtptrsqokn20-36-7286 10:07-0500Diastolic blood jfxamqid00 mm[Hg]Sal Sabillon MD Work Phone: [phone])[address]01-03-2025 10:07-0500 Heart rate64 /Mariela Sabillon MD Work Phone: 1(325)[address] [place], [place] 6396001-03-2025 10:07-0500 Respiratory rate16 /Mariela Sabillon MD Work Phone: [phone])[address] [place], [place] 6396001-03-2025 10:07-0500 SaO2% (BldA) [Mass fraction]96 %Sal Sabillon MD Work Phone: [phone])[address] [place], [place] 6396001-03-2025 10:07-0500 Systolic blood mm[Hg]Sal Sabillon MD Work Phone: [phone])[address] [place], [place] 6396001-03-2025 07:52-0500 Body nlciio184.64 cmSal Sabillon MD Work Phone: 1(748)[address] [place], [place] 6396001-03-2025 07:52-0500 Body aplwls222.69 kgSal Sabillon MD Work Phone: [phone] [place], [place] 6396010-29-2024 09:42-0400 Body qpuvsy524.72 cm[facility]10-29-2024 09:42-0400Body mass index (BMI) [Ratio]35.9 kg/k3UlpbthxvnCommunity [facility] Hospital10-29-2024 09:42-0400Body mlixdi316.04 kg[facility]10-29-2024 09:42-0400Diastolic blood xvrzqoyl64 mm[Hg][facility] 03-16-2024 09:42-0400Heart rate76 /[facility] 03-16-2024 09:42-0400Systolic blood vbxiokak206 mm[Hg][facility]09-12-2024 15:05-0400Body akfden758.72 cm[facility]09-12-2024 15:05-0400Body mass index (BMI) [Ratio]35.6 kg/k6RuiygugsrCommunity Memorial Hospital09-12-2024 15:05-0400Body fpsbiwuorxw26.2 [degF][facility]09-12-2024 15:05-0400Body oepfne368.25 kg[facility]09-12-2024 15:05-0400Diastolic blood wvkouhqp48 mm[Hg] [facility]09-12-2024 15:05-0400Heart rate69 /[facility]09-12-2024 15:05-0400Respiratory rate16 /[facility]09-12-2024 15:05-7489NiI7% (BldA) [Mass fraction]96 % [facility]09-12-2024 15:05-0400Systolic blood izbcdhwi996 mm[Hg][facility]03-28-2024 12:06-0400Body cnbkyl184.72 cm [facility]03-28-2024 12:06-0400Body mass index (BMI) [Ratio]35.2 kg/h1EwheowngaCommunity Memorial Hospital03-28-2024 12:06-0400Body ffmzjekuiqb56.9 [degF][facility]03-28-2024 12:06-0400Body qzokxy885.23 kg[facility]03-28-2024 12:06-0400Diastolic blood mm[Hg][facility]03-28-2024 12:06-0400 Heart rate76 /[facility]03-28-2024 12:06-0400 Respiratory rate16 /[facility]03-28-2024 12:06-0400 SaO2% (BldA) [Mass fraction]97 %[facility]03-28-2024 12:06-0400Systolic blood rynxrtme363 mm[Hg][facility] 06-24-2023 10:02-0500Body bqajaq963.6 cmOscar Arvizu MD Work Phone: [facility]landKepvxavqcy81-94-0544 10:02-0500Body mass index (BMI) [Ratio]36.32 kg/m2Oscar Arvizu MD Work Phone: 1([phone] [place], [place] [address]Lvsbddlhua55-93-6714 10:02-0500Body eheumg583.06 kgOscar Arvizu MD Work Phone: 1(081)425-[address] [place], [place] [address]Tdukpjofbs41-75-9474 10:02-0500Diastolic blood mm[Hg]Oscar Arvizu MD Work Phone: 1(629)003-[address] [place], [place] [address]Khxsyximme01-44-0323 10:02-0500Heart rate77 /min Oscar Arvizu MD Work Phone: [facility]landQrpfjcbcgu17-05-7308 10:02-0500Systolic blood atqckpam207 mm[Hg]Oscar Arvizu MD Work Phone: 0(693)941-[address] [place], [place] [address]Jeqawtswdi70-63-5600 15:00-0400Body cryprr611.72 cmAbdul Geovanni Other [employer] Other [id number] 15:00-0400Body mass index (BMI) [Ratio] 33.96 kg/h7Wnbkq Geovanni Other [employer] Other 356612-69-2917 15:00-0400Body pmgsvpsblze46.3 [degF]Frederick Geovanni Other [employer] Other 4-990713-73058448-02-9830 15:00-0400Body hmpaiv801.33 kgAbdul Geovanni Other [employer] Other 08-31-2023 15:00-0400Diastolic blood stxyuxoq29 mm[Hg] Frederick Geovanni Other [employer] Other 08-31-2023 15:00-0400Respiratory rate18 /minAbdul Geovanni Other [employer] Other 08-31-2023 15:00-1648ThY9% (BldA) [Mass fraction]97 % Frederick Geovanni Other [employer] Other 08-31-2023 15:00-0400Systolic blood qvqveffq622 mm[Hg] Frederick Geovanni Other [employer] Other 02-02-2023 16:00-0500Body .72 cmAbdul Geovanni Other [employer] Other 02-02-2023 16:00-0500Body mass index (BMI) [Ratio]33.9 kg/b5Fmohh Geovanni Other [employer] Other 02-02-2023 16:00-0500Body zdhslbygvzq73 [degF]Frederick Geovanni Other [employer] Other 02-02-2023 16:00-0500Body qbsnun334.15 kgAbdul Geovanni Other [employer] Other 02-02-2023 16:00-0500Diastolic blood madouoju19 mm[Hg] Frederick Geovanni Other [employer] Other 02-02-2023 16:00-0500Respiratory rate18 /minAbdul Geovanni Other [employer] Other 02-02-2023 16:00-9610BfH7% (BldA) [Mass fraction]91 % Frederick Geovanni Other [employer] Other 02-02-2023 16:00-0500Systolic blood mm[Hg] Frederick Geovanni Other [employer] Other 07-07-2022 16:40-0400Body vgoqzw159.72 cmAbdul Geovanni Other [employer] Other 07-07-2022 16:40-0400Body mass index (BMI) [Ratio] 34.18 kg/k8Kfwaa Geovanni Other [employer] Other 07-07-2022 16:40-0400Body wrnmwjodrmj44.7 [degF]Frederick Geovanni Other [employer] Other 07-07-2022 16:40-0400Body yangvp584.97 kgAbdul Geovanni Other [employer] Other 07-07-2022 16:40-0400Diastolic blood hsasomou82 mm[Hg] Frederick Geovanni Other [employer] Other 07-07-2022 16:40-0400Respiratory rate18 /minAbdul Geovanni Other [employer] Other 07-07-2022 16:40-4519TlH4% (BldA) [Mass fraction]97 % Frederick Geovanni Other [employer] Other 07-07-2022 16:40-0400Systolic blood zsihpuei089 mm[Hg] Frederick Geovanni Other [employer] Other 01-13-2022 16:00-0500Body etkloj613.72 cmAbdul Geovanni Other [employer] Other 01-13-2022 16:00-0500Body mass index (BMI) [Ratio] 35.35 kg/o4Urpgr Geovanni Other [employer] Other 01-13-2022 16:00-0500Body yjccvldqksj40.9 [degF]Frederick Geovanni Other [place] [employer] Other 01-13-2022 16:00-0500Body peocap728.46 kgAbdul Geovanni Other [place] [employer] Other 01-13-2022 16:00-0500Diastolic blood tnrvwrqa57 mm[Hg] Frederick Geovanni Other [place] [employer] Other 01-13-2022 16:00-0500Respiratory rate18 /minAbdul Geovanni Other [place] [employer] Other 01-13-2022 16:00-0280GeT3% (BldA) [Mass fraction]97 % Frederick Geovanni Other [place] [employer] Other 01-13-2022 16:00-0500Systolic blood wicwtyez969 mm[Hg] Frederick Geovanni Other [employer] Other 130011-75-9414 06:55-0500Body Dvafqpdzjan03.01 [degF] [facility], OZ25-31-1606 06:55-0500BP Dkneqjrko94 mm[Hg] [facility], XU83-54-3121 06:55-0500BP Hgqcdogx541 mm[Hg] [facility], YA99-08-8727 06:55-0500Pulse (Heart Rate)82 /minPro[facility] [place], AZ71-51-1168 06:55-0500Pulse Debjfhyl36 % [facility], LU56-11-7928 06:55-0500Respiratory Rate17 /min [facility], PY93-59-8209 05:57-0500BMI (Body Mass Index) 39.2 kg/m6YxqvjqzProHealth [facility] [place], PO87-79-0758 05:57-0500Body weight 113.54 kgPro[facility] [place], MF19-43-5813 16:35-7253Wqdmnc453.2 cm [facility], ER33-32-1499 05:19-0500BMI (Body Mass Index) 39.19 kg/r0ZqcmdtFa[facility], MM85-95-5264 05:19-0500Body weight 113.5 kgFa[facility], BO51-05-8914 03:30-0500BP Chjmqgrgl76 mm[Hg][facility], FM92-91-0747 03:30-0500BP Mhoiyttu866 mm[Hg][facility], VL09-70-1575 03:30-0500Pulse (Heart Rate) 92 /minFaith [facility] Center, JU71-21-5217 03:30-0500Pulse Kqfemmss59 %[facility], QV60-53-4009 00:52-0500Body Iqjtebcmvoq38.2 [degF][facility], IF27-80-3600 00:52-0500Respiratory Rate18 /minFa[facility], BB44-22-2352 18:15-6027Usakih251.2 cm [facility], RD04-15-5355 14:57-0500BP Dukfplxco71 mm[Hg][facility], YP24-55-6214 14:57-0500BP Iadtnetm45 mm[Hg][facility], UP98-98-7788 14:57-0500Pulse (Heart Rate)90 /minBo [facility], VW69-52-3287 14:57-0500Pulse Wnggpicl72 %[facility], 04-05-2019 14:57-0500Respiratory Rate16 /minL[facility]aster [facility], VU96-65-0355 14:06-0500Body Hoymfwijyfx83.2 [degF][facility], GJ17-18-0558 08:44-0500BMI (Body Mass Index)46.66 kg/m2[facility], MQ41-36-6170 08:44-0500Body vrmoak753.95 kgL[facility], WH58-06-7242 08:44-0500 Jtotrj569.6 cmL[facility]aster [facility], TS66-38-9079 12:44-0500BMI (Body Mass Index)46.66 kg/m[address], SM46-36-6396 12:44-0500Body Temperature 96.91 [degF][address], DE72-86-9369 12:44-0500Body .[address], XB63-48-1213 12:44-0500BP Ngjnweyvc10 mm[Hg][address], OS06-74-1123 12:44-0500BP Qcsflnvi281 mm[Hg][address], BF85-83-1753 12:44-0881Qvsoow084.[address], DI00-61-0647 12:44-0500Pulse (Heart Rate)77 /min[address], FS97-34-3563 12:44-0500Pulse Knjleyyo60 %[address], ZK73-53-9827 12:44-0500 Respiratory Rate16 /min[address], KT45-79-8077 04:55-0500Body .0 degrees [facility] CenterComment on above:Result Comment: NOTE: PATIENT RESULTS ARE NOT CORRECTED FOR TEMPERATURE. Performed By: #### EMRAD ####NO LOCATION EICQEW14-91-0207 19:29-0500Body bgekxvjdhzk75.0 degrees [facility] CenterComment on above:Result Comment: NOTE: PATIENT RESULTS ARE NOT CORRECTED FOR TEMPERATURE. Performed By: #### EMRAD ####NO LOCATION AGFQTA63-08-4807 14:43-0500Body phsccclusnk79.0 degrees [facility] CenterComment on above:Result Comment: NOTE: PATIENT RESULTS ARE NOT CORRECTED FOR TEMPERATURE. Performed By: #### EMRAD ####NO LOCATION UTBHRZ37-03-0210 11:59-0500Body vapajeukbal29.0 degrees [facility] CenterComment on above:Result Comment: NOTE: PATIENT RESULTS ARE NOT CORRECTED FOR TEMPERATURE. Performed By: #### EMRAD ####NO LOCATION PIGKBZ74-08-3406 06:26-0500Body yhcbafaqvuq73.0 degrees [facility] CenterComment on above:Result Comment: NOTE: PATIENT RESULTS ARE NOT CORRECTED FOR TEMPERATURE. Performed By: #### EMRAD ####NO LOCATION NDRZHG51-62-4256 05:32-0500Body srlfzfwijzt84.0 degrees [facility] CenterComment on above:Result Comment: NOTE: PATIENT RESULTS ARE NOT CORRECTED FOR TEMPERATURE. Performed By: #### EMRAD ####NO LOCATION JBTBUM82-14-0812 04:04-0500Body zwdythcucea90.0 degrees [facility] CenterComment on above:Result Comment: NOTE: PATIENT RESULTS ARE NOT CORRECTED FOR TEMPERATURE. Performed By: #### EMRAD ####NO LOCATION TBNIJW32-12-5762 00:50-0500Body rysfcvgdxbn84.0 degrees [facility] CenterComment on above:Result Comment: NOTE: PATIENT RESULTS ARE NOT CORRECTED FOR TEMPERATURE. Performed By: #### EMRAD ####NO LOCATION GPVTEP15-68-7667 23:29-0500Body fuovmwipvrs96.0 degrees [facility]ron [facility] HospitalComment on above:Result Comment: NOTE: PATIENT RESULTS ARE NOT CORRECTED FOR TEMPERATURE. Performed By: #### EMRAD ####NO LOCATION RVRAEY25-73-2552 20:21-0500Body uvctfqeiiuk39.0 degrees [facility]ron [facility] HospitalComment on above:Result Comment: NOTE: PATIENT RESULTS ARE NOT CORRECTED FOR TEMPERATURE. Performed By: #### EMRAD ####NO LOCATION OUQGAW90-63-8427 19:08-0500Body ptqyhetfbqf31.0 degrees [facility]ron [facility] HospitalComment on above:Result Comment: NOTE: PATIENT RESULTS ARE NOT CORRECTED FOR TEMPERATURE. Performed By: #### EMRAD ####NO LOCATION GVDGGF83-75-3780 17:37-0500Body nhvrqcsylzx08.0 degrees [facility] CenterComment on above:Result Comment: NOTE: PATIENT RESULTS ARE NOT CORRECTED FOR TEMPERATURE. Performed By: #### EMRAD ####NO LOCATION BXYNRH24-66-7040 17:18-0500Body pjmfnxbasvp11.0 degreesAaron Clinton Memorial HospitalComment on above:Result Comment: NOTE: PATIENT RESULTS ARE NOT CORRECTED FOR TEMPERATURE. Performed By: #### EMRAD ####NO LOCATION QIWSIC31-61-3468 17:01-0500Body umknusmmvng12.0 degrees [facility] CenterComment on above:Result Comment: NOTE: PATIENT RESULTS ARE NOT CORRECTED FOR TEMPERATURE. Performed By: #### EMRAD ####NO LOCATION ZMCDLF95-90-9532 15:30-0500Body iwobhsxrhjz34.0 degrees [facility] CenterComment on above:Result Comment: NOTE: PATIENT RESULTS ARE NOT CORRECTED FOR TEMPERATURE. Performed By: #### EMRAD ####NO LOCATION QQUGNP87-91-7946 14:29-0500Body cbrurfjjfsx91.0 degrees [facility] CenterComment on above:Result Comment: NOTE: PATIENT RESULTS ARE NOT CORRECTED FOR TEMPERATURE. Performed By: #### AFPA3 ####[id number], [place] 4676328-66-1972 13:56-0500Body kinmbkyljpq67.0 degrees [facility]ron [facility] HospitalComment on above:Result Comment: NOTE: PATIENT RESULTS ARE NOT CORRECTED FOR TEMPERATURE.Performed By: #### AFPA3 ####[id number] [id number] 13:11-0500Body izogxybjoom65.0 degrees [facility] CenterComment on above:Result Comment: NOTE: PATIENT RESULTS ARE NOT CORRECTED FOR TEMPERATURE.Performed By: #### [email or web address] ####[id number] [id number] 12:53-0500Body phgeurvirdu35.0 degrees [facility] CenterComment on above:Result Comment: NOTE: PATIENT RESULTS ARE NOT CORRECTED FOR TEMPERATURE.Performed By: #### [email or web address] ####[id number], [place] 12:24-0500Body mxhbhsnbacs58.0 degrees [facility] CenterComment on above:Result Comment: NOTE: PATIENT RESULTS ARE NOT CORRECTED FOR TEMPERATURE. Performed By: #### [email or web address] ####[id number], [place] 11:57-0500Body yxfkqoowjix81.0 degrees [facility] CenterComment on above:Result Comment: NOTE: PATIENT RESULTS ARE NOT CORRECTED FOR TEMPERATURE.Performed By: #### [email or web address] ####[id number], [place] 11:45-0500Body mgxzyqntpid61.0 degrees [facility] CenterComment on above:Result Comment: NOTE: PATIENT RESULTS ARE NOT CORRECTED FOR TEMPERATURE.Performed By: #### [email or web address] ####[id number], [place] 09:53-0500Body imzvohtwlei79.0 degrees [facility] CenterComment on above:Result Comment: NOTE: PATIENT RESULTS ARE NOT CORRECTED FOR TEMPERATURE.Performed By: #### [email or web address] ####[id number] [place] [place]TER[place], [place] [id number] 16:32-0400Body jaxddtjdhxr14.0 degrees [facility]St[facility] ShoreComment on above:Result Comment: NOTE: PATIENT RESULTS ARE NOT CORRECTED FOR TEMPERATURE. Performed By: #### EMRAD ####NO LOCATION NEEDED Encounters Encounter DateEncounter TypeCare ProviderFacilityStart: 12-21-2024 End: 86-38-6787Llgcvqaditi Arvizu MD Work Phone: noms NEUROLOGYStart: 12-21-2024 End: 07-97-1445Ixofbuaditi Arvizu MD Work Phone: noms NEUROLOGYStart: 12-21-2024 End: 76-23-9722Kfgimw outpatient visit 25 minutesOscar Arvizu MD Work Phone: noms [facility] NeurologyComment on above: Carotid stenosis, bilateral (Primary Dx); AKASH (obstructive sleep apnea); Neurogenic pain; Cognitive decline; Cervical paraspinal muscle spasm; 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 (HCC)Start: 12-21-2024 End: 95-68-9519cqohxdcwbxPRNX D BEJNot AvailableStart: 11-29-2024 End: 19-03-6614Rqkcyvaditi Estrada MD Work Phone: noms ENDOCRINOLOGYStart: 11-29-2024 End: 53-42-4558Fcnalyaditi Estrada MD Work Phone: noms ENDOCRINOLOGYStart: 11-29-2024 End: 84-37-9118Fvtfrq outpatient visit 40 minutesTyler Estrada MD Work Phone: noms ENDOCRINOLOGYComment on above:Type 2 diabetes mellitus with hyperglycemia, without long-term current use of insulin (HCC) (Primary Dx); Adrenal insufficiency (HCC); Acquired hypothyroidism ; Encounter for dietary consultation; Vitamin D deficiency; Current chronic use of systemic steroids; Osteopenia, unspecified location; Hypothyroidism, unspecifiedStart: 11-29-2024 End: 19-45-0157bwushjdkqaBNXLE F SABBAGHNot AvailableStart: 2024 End: 45-97-0575refnmpfnwvLvlbat E Braun MD Work Phone: [facility] Work Phone: Start: 2024 End: 12-54-8523Pnkwebt encounter procedureSal Sabillon MD Work Phone: [facility] Nephrology Darius Work Phone: Start: 65-72-0270Cma-patient / Non-visitSal Sabillon MD Work Phone: [facility] Work Phone: Start: 06-23-2024 End: 83-50-3115juqqteiikiCPDV [facility]: 06-01-2024 End: 53-66-1883Kajobae encounter procedureSal Sabillon MD Work Phone: [facility] [place] Work Phone: Start: 06-01-2024 End: 08-06-9232nhbinmymgbXomhpo E Braun MD Work Phone: [facility] Work Phone: Start: 12-42-0716Hdd-patient / Non-visitSal Sabillon MD Work Phone: [facility] Work Phone: Start: 05-24-2024 End: 06-23-7079Sypxqf Gerson Estrada MD Work Phone: noms ENDOCRINOLOGYStart: 05-24-2024 End: 24-58-1491Evsbugemory Estrada MD Work Phone: noms ENDOCRINOLOGYStart: 05-24-2024 End: 32-42-1860Ottuxu outpatient visit 40 minutesAhmad F Natalie MD Work Phone: noms ENDOCRINOLOGYComment on above:Type 2 diabetes mellitus with hyperglycemia, without long-term current use of insulin (CMS/HCC) (Primary Dx); Adrenal insufficiency (CMS/HCC); Acquired hypothyroidism (CMS/HCC); Encounter for dietary consultation; Vitamin D deficiency; Current chronic use of systemic steroids; Osteopenia, unspecified locationStart: 05-24-2024 End: 46-17-9289ttvgkeeqkyBXDEH F SABBAGHNot AvailableStart: 50-42-7751Uej- patient / Non-visitSal Sabillon MD Work Phone: [facility] Work Phone: Start: 05-21-2024 End: 98-13-9215Eappqjxag to same day surgery centerSal Sabillon MD Work Phone: [facility] Work Phone: Start: 05-21-2024 End: 98-44-4869orvzwcrofqXcognl E Braun MD Work Phone: [facility] Work Phone: Start: 03-72-8616Eam-patient / Non-visitSal Sabillon MD Work Phone: [facility] Work Phone: Start: 87-42-1523Khr-patient / Non-visitSal Sabillon MD Work Phone: [facility] Phys[facility] Work Phone: Start: 16-39-3710Ugb-patient / Non-visitSal Sabillon MD Work Phone: [facility] Work Phone: Start: 05-05-2024 End: 95-07-9407Rjfkbb Hero Gomez [facility] Work Phone: NOMS CI AUDStart: 05-05-2024 End: 15-33-4633Zspayc flowsheetDebbie [facility] Work Phone: noMS CI AUDStart: 05-05-2024 End: 80-59-0146Xfwxeqbk SupportDebbie Gomez [facility] Work Phone: NOMS CI AUDComment on above:Sensorineural hearing loss, bilateral (Primary Dx); Tinnitus, bilateralStart: 01-86-3442Unujled encounter procedureSal Sabillon MD Work Phone: Centervilletart: 70-13-1813Uug- patient / Non-visitSal Sabillon MD Work Phone: [facility] Work Phone: Start: 03-16-2024 End: 06-54-8671dxhxoilltwSuovnomyaKettering Health [facility] Work Phone: Start: 03-16-2024 End: 02-83-9824Owinhgm encounter procedureCar[facility] Work Phone: Start: 01-29-2024 End: 53-63-7524nxdglybwegBkgrxouyyKettering Health [facility] Work Phone: Start: 01-29-2024 End: 70-08-5050Heevpbv encounter procedureCar[facility] Nephrology Darius Work Phone: Start: 57-74-5161Hre-patient / Non-visitCar[facility]ont [facility] Work Phone: Start: 01-06-2024 End: 55-34-2881cevbbpcddpHAZZOAFProMedica Memorial Hospitaltart: 01-06-2024 End: 78-98-1778Fxglpxkej for other preprocedural examinationBucyrus Community Hospitaltart: 08-14-2023 End: 04-67-1374mpnbhhkifdUszskrjtjKettering Health [place] Work Phone: Start: 08-14-2023 End: 13-80-8321Epsddem encounter procedureRui [facility]ician [facility] Nephrology Darius Work Phone: Start: 39-38-4784Xnf-patient / Non-visitCaromont [facility] Work Phone: Start: 58-54-9636Fwhcd abstractingOscar Arvizu MD Work Phone: noms [facility] NEURO 111Start: 06-24-2023 End: 11-16-6256Oatbxo outpatient visit 15 minutesOscar Arvizu MD Work Phone: noms [facility] NEURComment on above: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 (Primary Dx); Neurogenic pain; Cognitive decline; Cervical paraspinal muscle spasm; Carotid stenosis, bilateral; Stroke, lacunar (CMS/HCC); Cerebral artery occlusion with cerebral infarction (CMS/HCC)Start: 03-11-2023 End: 96-67-1384rinquvxybdOxzeks Sabillon Other [facility] SMS Assist Other Start: 26-00-1998Ipegsda evaluation of patient and reportMarcia Celestine [facility] Centertart: 01-16-2023 End: 60-91-0649xowlnrhuuuCmhir Geovanni Other [employer] Other Start: 86-91-9289Ghgzqs outpatient visit 25 minutes Frederick QadirFPG Nephrology ClydeStart: 06-20-2022 End: 41-87-2856pnngmnfadlYdbyv Geovanni Other [employer] Other Start: 78-48-4817Phfvzw outpatient visit 25 minutes Frederick QadirFPG Nephrology ClydeStart: 06-13-2022 End: 15-09-8223jjmxfnglkcCO SAL SABILLONFacility:B1Ukuqs: 06-07-2022 End: 80-23-6577luduhccutaRF MARCIA E BRAUNFacility:C3Pmsih: 05-24-2022 End: 17-33-6551bdbmvasbmzKK MARCIA E BRAUNFacility:D0Vmveh: 52-32-3237rktzpxxkps DR SAL SABILLONFacility:M8Iexar: 11-22-2021 End: 37-80-8051ghhbnbstzkJwvrl Geovanni Other [employer] Other Start: 47-15-7129Zqdfae outpatient visit 15 minutes Frederick QadirFPG Nephrology ClydeStart: 11-17-2021 End: 53-19-7689uvvdlbqxxpXZJCY QADIRFacility:D3Pszbn: 06-03-2021 End: 57-92-0482miwxxsjrhnScyov Geovanni Other [employer] Other Start: 83-38-6516Gxjpiibnc encounterAbdul QadirFPG NephrologyStart: 05-31-2021 End: 17-60-4795vgvavslnjkIlicw Geovanni Other [employer] Other Start: 22-79-4774Yypvtg outpatient visit 25 minutes Frederick QadirFPG Nephrology ClydeStart: 02-08-2021 End: 86-88-6927yufkfwljqsLXUXTHI M BOESFacility:[facility]PITALtart: 04-09-2019 End: 48-41-4375Dvxvcbpbjl and management of inpatientHEATHER SCVail Health Hospitaltart: 04-09-2019 End: 25-10-7987Sxanvioofm and management of inpatientHeather Scmclean hospitalin Work Phone: mloz REHABStart: 04-07-2019 End: 77-34-5238Nqoipdnhwi and management of inpatientMARCIA [facility] Hospitaltart: 04-07-2019 End: 22-44-6467Pqhzlfjlva and management of inpatientCurtis Atilio Martinez Work Phone: [facility] 2W Ortho TeleComment on above:SIRS (systemic inflammatory response syndrome) (HCC) (Primary Dx); Dehydration; TIFFANI (acute kidney injury) (HCC); Bronchitis; Elevated TSHStart: 04-05-2019 End: 62-11-7153Wjnvmsm [facility]Health[facility] Start: 04-05-2019 End: 23-19-6819Srslktv encounter procedureHealth[facility] Start: 04-05-2019 End: 52-77-0945Czxdzfeqve hospital visit by physicianReid Mejia Work Phone: MLOZ ORComment on above:Post-op pain (Primary Dx) Start: 03-30-2019 End: 43-10-2891Qtotnil encounter procedureHealthSouth [facility] Start: 03-30-2019 End: 90-77-3883Eoteprrqkd hospital visit by physicianWandy Garcia Rm 1[facility] Pre- Admission TestingComment on above:Spinal stenosis of lumbar region with radiculopathy; Lumbar spondylosis; [place]'s disease (HCC); Cancer (HCC); Restless leg syndrome; Former smoker, stopped smoking in distant past; Tremors of nervous system; Thyroid disease; PsoriasisStart: 70-14-6324Mukooqh encounter procedureSalil Vasudeo Sy Facility:[id number]: 03-19-2018 End: 10-06-7732Sdvvwxtqwc and management of inpatientAaron ProwellerFacility:[facility] Procedures DateProcedureProcedure DetailPerforming ClinicianStart: 72-95-1015Hpnb bld gluc mntr dev cleared fda spec home useAhkeith Estrada MD Work Phone: Start: 88-02-5852Hgmj bld gluc mntr dev cleared fda spec home useTyler Estrada MD Work Phone: Start: 69-33-8291Ogmbftszy colonoscopySal Sabillon MD Work Phone: Start: 58-24-4947NGDGQRJO FUNCTION TESTSDeele Gomez [facility] Work Phone: start: 77-78-5252Wmoh bld gluc mntr dev cleared fda spec home useBO YOOStart: 61-85-7751Boey bld gluc mntr dev cleared fda spec home useUnknown Provider ResultStart: 92-58-7899BVZYCIRTC PATIENTBO YOOStart: 31-58-6193DPWVWRWV OXYGEN THERAPY PROTOCOLBO YOOStart: 75-94-8721Pcxz bld gluc mntr dev cleared fda spec home useBO YOOStart: 10-59-0742Dwplujjrgao timeBO SALLIE Start: 37-25-4977Swfb bld gluc mntr dev cleared fda spec home useUnknown Provider ResultStart: 28-03-8507Eclmqwrcdjg timeAffinitas GmbH [employer] Work Phone: Start: 17-79-9788CLSMUJ AND OUTPUTBO YOOStart: 73-99-9416Ftvg bld gluc mntr dev cleared fda spec home useBO YOOStart: 46-57-9437Pxcy bld gluc mntr dev cleared fda spec home useBO YOOStart: 10-77-1704Nkxx bld gluc mntr dev cleared fda spec home useUnknown Provider ResultStart: 53-22-3694Lekr bld gluc mntr dev cleared fda spec home useBO SALLIE Start: 33-73-4697Piuj bld gluc mntr dev cleared fda spec home useUnknown Provider ResultStart: 34-25-6313Fznm bld gluc mntr dev cleared fda spec home use REID YOOStart: 91-75-5666Nguy bld gluc mntr dev cleared fda spec home useUnknown Provider ResultStart: 97-18-7706KRF MISC THERAPYBO YOOStart: 78-19-6292YVPDSQPU OXYGEN THERAPY PROTOCOLBO YOOStart: 75-42-7042Qcru bld gluc mntr dev cleared fda spec home useBO YOOStart: 76-70-5957Ftbpfqhaenp timeBO YOOStart: 42-88-6910Klgf bld gluc mntr dev cleared fda spec home useUnknown Provider ResultStart: 93-89-0196Evsksoysakm timeTelnexus Work Phone: Start: 89-80-2436YWIOYK AND OUTPUTBO YOOStart: 59-92-1059Bavs bld gluc mntr dev cleared fda spec home useBO YOOStart: 94-03-0632Jhwt bld gluc mntr dev cleared fda spec home useBO YOOStart: 43-20-2687Hrga bld gluc mntr dev cleared fda spec home useUnknown Provider ResultStart: 31-47-4762Mpbq bld gluc mntr dev cleared fda spec home useBO SALLIE Start: 95-65-1768Uhnk bld gluc mntr dev cleared fda spec home useUnknown Provider ResultStart: 94-74-0151BPRB CARB CONTROLBO YOOStart: 99-99-4029Wcrw bld gluc mntr dev cleared fda spec home useBO YOOStart: 39-50-3708LTLMXSRV OXYGEN THERAPY PROTOCOLBO YOOStart: 89-18-5488Jnxi bld gluc mntr dev cleared fda spec home useBO YOOStart: 52-36-1069Xcmswmlnhor timeBO YOOStart: 04-11-2019 End: 75-71-8199Omqx bld gluc mntr dev cleared fda spec home useUnknown Provider ResultStart: 54-18-2709Efsdmfixlos timeNapeacehealth [employer] Work Phone: Start: 17-62-0256SMCYPK AND OUTPUTBO YOOStart: 85-75-7997Ymhf bld gluc mntr dev cleared fda spec home useBO YOOStart: 63-89-6999Qwgu bld gluc mntr dev cleared fda spec home useBO YOOStart: 37-69-3997Uvcb bld gluc mntr dev cleared fda spec home useUnknown Provider ResultStart: 57-40-6088Ckhm bld gluc mntr dev cleared fda spec home useBO SALLIE Start: 55-13-8992Zrqy bld gluc mntr dev cleared fda spec home useUnknown Provider ResultStart: 28-82-0526Tksf bld gluc mntr dev cleared fda spec home use REID YOOStart: 33-50-2686Irzf bld gluc mntr dev cleared fda spec home useUnknown Provider ResultStart: 46-13-5634ITW EVAL AND TREATBO YOOStart: 80-38-9942HC EVAL AND TREATBO YOOStart: 53-98-5549VP EVAL AND TREATBO YOOStart: 04-10-2019 INITIATE OXYGEN THERAPY PROTOCOLBO YOOStart: 00-52-5810Qjhi bld gluc mntr dev cleared fda spec home useBO YOOStart: 48-13-0129Ydumkj and language therapy regimeHeather Scullin Work Phone: Start: 79-56-6787Hnvosqzkuaw timeBO YOOStart: 26-84-0315Wjrv bld gluc mntr dev cleared fda spec home useUnknown Provider ResultStart: 47-21-2170Bfshwrodkkr timeGerardo Fitzpatrick Work Phone: Start: 56-69-4824CSQSO WEIGHTSBO YOOStart: 04-10-2019 INTAKE AND OUTPUTBO YOOStart: 01-93-4845Etcw bld gluc mntr dev cleared fda spec home useBO YOOStart: 29-52-9880JRKBMRFI TO DOSE WARFARINBO YOOStart: 04-09-2019 IP CONSULT TO HOSPITALISTBO YOOStart: 17-82-7750VL CONSULT TO RESPIRATORY CAREBO YOOStart: 36-37-6370Qglt bld gluc mntr dev cleared fda spec home useBO SALLIE Start: 67-62-2640Sado bld gluc mntr dev cleared fda spec home useBO YOOStart: 71-72-5542Ceii bld gluc mntr dev cleared fda spec home useUnknown Provider ResultStart: 42-94-6993QYZS CODEBO YOOStart: 71-31-5626INPCNRTE OXYGEN THERAPY PROTOCOLBO YOOStart: 54-27-0636ZGANIA AND OUTPUTBO YOOStart: 33-07-6419TXBDWO PHYSICIAN (SPECIFY)REID YOOStart: 86-82-1844SFOME INTERMITTENT PNEUMATIC COMPRESSION DEVICEBO YOOStart: 27-28-3643NZYXP SIGNSBO YOOStart: 04-09-2019 INCENTIVE SPIROMETRY RTBO YOOStart: 70-93-2672UZZWCIFIX SPIROMETRY RTBO SALLIE Start: 70-35-3510Mhgx bld gluc mntr dev cleared fda spec home useBO YOOStart: 89-33-4044Cafiy of lactateBO YOOStart: 00-80-7090NYVIANJRP SPIROMETRY RTBO SALLIE Start: 04-70-5181Sgkj bld gluc mntr dev cleared fda spec home useUnknown Provider ResultStart: 37-47-2027KHWPIZHWW SPIROMETRY RTBO YOOStart: 04-09-2019 Assay of lactateBO YOOStart: 91-40-2692Nqmhlplfaut timeBO YOOStart: 04-09-2019 DISCHARGE PATIENTBO YOOStart: 13-21-1038Osoo bld gluc mntr dev cleared fda spec home useBO YOOStart: 19-08-6667JLKAYFKSA SPIROMETRY RTBO YOOStart: 04-09-2019 INITIATE OXYGEN THERAPY PROTOCOLBO YOOStart: 97-31-1582Jngea of lactateNicole Pentito Work Phone: Start: 69-62-2319Euvfworchvd timeNachelsy Blairha Work Phone: Start: 25-61-9112TL CONSULT TO REHAB/TCU ADMISSION COORDINATORBO YOOStart: 11-07-8611EE EVAL AND TREATBO YOOStart: 31-91-4748FY EVAL AND TREATBO YOOStart: 15-87-0872Ajmg bld gluc mntr dev cleared fda spec home useUnknown Provider ResultStart: 26-28-5600RNFLEUQBD SPIROMETRY RTBO SALLIE Start: 02-13-6279Dso routine ecg w/least 12 lds w/i&rBO YOOStart: 04-09-2019 Assay of lactateBO YOOStart: 14-75-3864Fwtrm count complete auto&auto difrntl wbcBO YOOStart: 17-53-4147Rdtzzoyqdmdoz metabolic panelBO YOOStart: 04-09-2019 Procalcitonin (pct)REID YOOStart: 08-56-6835Uuft bld gluc mntr dev cleared fda spec home useBO YOOStart: 97-26-9505Wjvwp of lactateNicole Pentito Work Phone: Start: 97-93-2255CEDWM METABOLIC PANEL W/ REFLEX TO MG FOR LOW KNicole Pentito Work Phone: Start: 81-64-7659Wnhbj count complete auto&auto difrntl wbcNicole Pentito Work Phone: Start: 66-78-7026Cdpktxocgyxtl (pct)Shanika Pentito Work Phone: Start: 10-27-0371QJDKXUDBG SPIROMETRY NURSINGBO SALLIE Start: 16-08-1568WDNCIS AND OUTPUTBO YOOStart: 14-94-4632Mojht of lactateBO SALLIE Start: 18-19-5064Izbg bld gluc mntr dev cleared fda spec home useBO YOOStart: 21-49-4961Mgyrq of lactateNicole Pentito Work Phone: Start: 32-20-5734PDRTMYVGN SPIROMETRY RTBO YOOStart: 82-83-9365Vvqa bld gluc mntr dev cleared fda spec home useBO YOOStart: 26-39-0676BXFVQRTLE SPIROMETRY RTBO YOOStart: 44-12-4961Cnbq bld gluc mntr dev cleared fda spec home useUnknown Provider ResultStart: 81-91-0163Okpum of lactateBO YOOStart: 41-53-0086EKDGEDVOZ SPIROMETRY RTBO YOOStart: 29-11-0881Wtnu bld gluc mntr dev cleared fda spec home useBO YOOStart: 50-39-8716Zklyq of lactateNicole Pentito Work Phone: Start: 37-49-3207CAMN CARB CONTROLBO YOOStart: 34-69-4559CGUJKBKPK SPIROMETRY RTBO YOOStart: 03-08-1556YQ EVAL AND TREATBO SALLIE Start: 19-62-0417DI EVAL AND TREATBO YOOStart: 87-78-9522Xevk bld gluc mntr dev cleared fda spec home useUnknown Provider ResultStart: 73-09-9835Olejz of lactateBO YOOStart: 62-43-5631Cqqu bld gluc mntr dev cleared fda spec home useBO YOOStart: 68-76-8317Hhgqr of lactateNicole Pentito Work Phone: Start: 26-07-5588Vpdm bld gluc mntr dev cleared fda spec home useUnknown Provider ResultStart: 59-44-3181KNBPIWBME REPORTBO SALLIE Start: 07-43-3590KEJIQWBC OXYGEN THERAPY PROTOCOLBO YOOStart: 72-15-9960Pbkm bld gluc mntr dev cleared fda spec home useBO YOOStart: 86-72-2609TCYOCSNHT REPORT Hpf ScanningStart: 88-01-7244Ndfx bld gluc mntr dev cleared fda spec home use Unknown Provider ResultStart: 01-33-4850Fwncv centrifuge enhncd id imfluor stain eaBO YOOStart: 97-83-9242Vqo routine ecg w/least 12 lds w/i&rBO YOOStart: 01-78-4672Ajcj bld gluc mntr dev cleared fda spec home useBO YOOStart: 02-52-3320Ylfrx count complete auto&auto difrntl wbcBO YOOStart: 04-08-2019 Comprehensive metabolic panelBO YOOStart: 34-28-6158Deqttlo function panelBO SALLIE Start: 29-61-3809Qgwam of lactateBO YOOStart: 95-58-2656Foonocikqpo timeBO SALLIE Start: 89-88-2242GZMYVFAFL MONITORINGBO YOOStart: 80-52-3973VQBAE METABOLIC PANEL W/ REFLEX TO MG FOR LOW KNicole Pentito Work Phone: Start: 89-25-9384Mphcn count complete auto&auto difrntl wbcNicole Pentito Work Phone: Start: 74-54-1448Ekkmhfi function panelNicole Pentito Work Phone: Start: 01-74-7743ZRHUNJJ, SEPSISNicole Pentito Work Phone: Start: 78-60-4723Rzldhqmfplm timeNicole Pentito Work Phone: Start: 48-86-1909Gfbtz of lactateBO YOOStart: 03-74-8712Ltih bld gluc mntr dev cleared fda spec home useBO YOOStart: 53-20-0531LIKMO INTERMITTENT PNEUMATIC COMPRESSION DEVICEBO YOOStart: 04-08-2019 REASON FOR NO CHEMICAL VTE PROPHYLAXISBO YOOStart: 42-31-2558ONEYR WEIGHTSBO SALLIE Start: 52-61-1994ELTK CODEBO YOOStart: 07-62-5919JJUZHJZNL SPIROMETRY NURSINGBO YOOStart: 14-51-2457VUDHIVBI OXYGEN THERAPY PROTOCOLBO YOOStart: 04-08-2019 INTAKE AND OUTPUTBO YOOStart: 90-69-7402HB CONSULT TO NEUROSURGERYBO YOOStart: 33-71-9943XY CONSULT TO PHARMACYBO YOOStart: 24-45-1791KRNNRH PHYSICIAN (SPECIFY)REID YOOStart: 72-29-6040PBORD SIGNSBO YOOStart: 44-28-7560KDQWEBC STATUS (FROM ED OR OR/PROCEDURAL)REID YOOStart: 50-50-0222HXRG VENOUSBO YOOStart: 70-23-6470NDCHFUZ, SEPSISNicole Pentito Work Phone: start: 37-86-9143EOCK EPOC BLOOD GAS, LACTIC ACID, ICA REID YOOStart: 62-99-9326Etxujmucr influenzaBO YOOStart: 22-62-0634Biq spinal canal lumbar w/o & w/contr matrlBO YOOStart: 99-22-1923GNKY VENOUSUnknown Provider ResultStart: 32-23-0152Grwahmiwq influenzaKimberaretha Okicki Work Phone: Start: 36-27-0178Bmdua of lactateBO YOOStart: 93-00-8244Ase spinal canal lumbar w/o & w/contr matrlKimberly Okicki Work Phone: Start: 57-59-7213Kmlddwvbwwa examination of blood, cultureBO YOOComment on above:Performed By: #### TS3C #### [facility] [address] [place] [id number] [phone]: 43-82-1483Xnk routine ecg w/least 12 lds w/i&rBO YOOStart: 57-86-3743Tezxzpo bacterial blood aerobic w/id isolatesBO YOOStart: 04-07-2019 Radiologic exam chest single viewBO YOOStart: 98-68-0370Pkjwtvdrvavekb eachBO YOOStart: 74-66-4898Umvbl of lipaseBO YOOStart: 83-08-8031Qagxb of magnesiumBO YOOStart: 46-39-3650Degmq of thyroid stimulating hormone tshBO YOOStart: 43-87-3348Pxmct of troponin quantitativeBO YOOStart: 95-49-8305Clkfy count complete auto&auto difrntl wbcBO YOOStart: 19-64-2140BVXOC NATRIURETIC PEPTIDEBO YOOStart: 41-32-1413Hjiuznyxnuiob metabolic panelBO YOOStart: 04-07-2019 Creatine kinase totalBO YOOStart: 86-15-2012Rbvtoif bacterial quanttative colony count urineBO YOOStart: 38-13-7889Ylvrfrbuu cytogenetics dna probe eachBO SALLIE Start: 58-51-4995Ouvaamvsnyxtk (pct)REID YOOStart: 26-12-1571Mniqburewil timeBO YOOStart: 35-15-7844Xgwhknhcgoipic time partial plasma/whole bloodBO YOOStart: 78-28-2756Khljhveqrb microscopic onlyBO YOOStart: 36-57-6039Hrynb dip stick/tablet rgnt auto w/o microscopyBO YOOStart: 88-15-7742Amtqa of lactate Jose David Santamaria Work Phone: Start: 04-07-2019 End: 07-56-8136Exuzrzk bacterial blood aerobic w/id isolatesJose David Santamaria Work Phone: Start: 69-86-7730Thg routine ecg w/least 12 lds w/i&r Jose David Santamaria Work Phone: Start: 03-56-9428Zsekuvwhum exam chest single view Jose David Santamaria Work Phone: Start: 17-55-9887Psrjl of lipaseJose David Santamaria Work Phone: Start: 65-10-4343Gkwml of magnesiumJose David Santamaria Work Phone: Start: 24-13-1961Rdydm of thyroid stimulating hormone tshJose David Santamaria Work Phone: Start: 20-66-5109Zccbx of troponin quantitative Jose David Santamaria Work Phone: Start: 16-67-3094PALXVLQYW TOTAL DIRECT & INDIRECT Shanika Pentito Work Phone: Start: 49-83-3525Tbocn count complete auto&auto difrntl wbcJose David Santamaria Work Phone: Start: 34-54-0406KGZO & RELATIVE PERCENTJose David Santamaria Work Phone: Start: 95-76-8676Lmjvxjtcnonfa metabolic panelJose David Santamaria Work Phone: Start: 68-50-5237Wxlyhwsa kinase totalJose David Santamaria Work Phone: Start: 13-56-5217Eydjxca bacterial quanttative colony count urineJose David Santamaria Work Phone: Start: 50-98-4064IKFXLRP, SEPSISJose David Santamaria Work Phone: Start: 75-14-6322Pwzzmmgyljk peptideJose David Santamaria Work Phone: Start: 34-61-1121Tunllbqoksagj (pct)Jose Davidaretha Santamaria Work Phone: Start: 82-26-0632Hllezkltbnc timeJose David Santamaria Work Phone: Start: 90-36-8454Sgkrdpovkvusdn time partial plasma/whole bloodJose David Santamaria Work Phone: Start: 36-46-1604Laaetokrvx microscopic onlyKidiane Santamaria Work Phone: Start: 52-24-7469Qnliq dip stick/tablet rgnt auto w/o microscopyJose David Santamaria Work Phone: Start: 12-05-9618Yijg bld gluc mntr dev cleared fda spec home useBO YOOStart: 27-58-3756Rbscocljbbr up to 1 hour physician/qhp time REID YOOStart: 27-69-9245LWVGLSBTN PATIENTBO YOOStart: 33-61-0605Owyz bld gluc mntr dev cleared fda spec home useUnknown Provider ResultStart: 04-05-2019 Continuous pulse oximetryBO YOOStart: 95-44-7036RVNDCEFWH DEEP BREATHING AND COUGHINGBO YOOStart: 27-68-0272GYBHCRWI OXYGEN THERAPY PROTOCOLBO YOOStart: 46-32-5656BZSNMUUZH YOOStart: 12-27-5455LJLCNT PHYSICIAN (SPECIFY)REID YOOStart: 60-48-6493QIKFYKS COMMUNICATIONBO YOOStart: 55-13-6764IZFQH SIGNSBO YOOStart: 00-47-3466Jerqtccemcq timeBO YOOStart: 00-47-4577GUGI NPO, NOWBO YOOStart: 40-34-6220Jrqp bld gluc mntr dev cleared fda spec home useBO YOOStart: 83-50-0017CATTVIA COMPRESSION STOCKINGS (ELISABETH)REID YOOStart: 27-34-6747HBWYHEEW OXYGEN THERAPY PROTOCOLBO YOOStart: 03-74-4251TBCXNO PHYSICIAN (SPECIFY)REID SALLIE Start: 42-78-7328WOKHR INTERMITTENT PNEUMATIC COMPRESSION DEVICEBO YOOStart: 14-83-8526ENXKL OXIMETRY SPOT CHECKBO YOOStart: 33-13-0252WKQYO SIGNSBO SALLIE Start: 61-48-8651Mikmksaeuml timePatricia K ThompsonStart: 60-41-1755Iesd bld gluc mntr dev cleared fda spec home useUnknown Provider ResultStart: 03-30-2019 Basic metabolic panel calcium totalBO YOOStart: 74-22-7136Ngqfmchrqvn timeBO SALLIE Start: 46-93-2562Jhoin count complete automatedBO YOOStart: 87-33-7813DHTF AND SCREENBO YOOStart: 66-11-2598Bsrlrrcoor glycosylated a1cBO YOOStart: 03-30-2019 Ecg routine ecg w/least 12 lds w/i&rBO YOOStart: 45-93-9835Bbnfhfvb screenMloz 1 Start: 23-37-7233Ahdqm metabolic panel calcium totalPatricia K ThompsonStart: 58-41-3271Gjbzxeoqlis timePatricia K ThompsonStart: 18-03-9871Oxwtg count complete automatedPatricia K ThompsonStart: 70-34-9890Qwqni typing serologic abo Vicki K ThompsonStart: 18-18-8545Rsjkpccill glycosylated s2aYzkodtpk K ThompsonStart: 90-44-7382Cwo routine ecg w/least 12 lds i&r onlyPatricia K ThompsonStart: 61-97-9104Srlsdb-up visitStart: 63-44-7907Gdlmpw Coronary Artery, One Artery from Left Internal Mammary, Open ApproachAaron ProwellerStart: 58-57-1155Gysehmks of Right Saphenous Vein, Percutaneous Endoscopic Approach Kenneth ProwellerStart: 27-13-5502Kjwxjpbdtym of Cardiac Output, ContinuousAaron ProwellerStart: 60-39-8104Elyufvzp screenAaron ProwellerComment on above: Performed By: #### T+S ####[id number] [place] [place], [place] [address]Ioxje: 75-05-2243Kfnfafwvy of Intraluminal Device into Inferior Vena Cava, Percutaneous ApproachAaron ProwellerStart: 10-72-9924Qqmkwrad screenAaron ProwellerComment on above:Performed By: #### LIPID ####[id number] [place] [address] Start: 94-46-8118NdgcyyvklnhhtnonHzijw Proweller Plan of Treatment DateCare ActivityDetailAuthorStart: 12-20-2025 End: 10-84-7579Wlexgmg encounter tiznfhbzk35/04/2026 10:30 AM EDT [facility] [address] [facility] [address] [place] [address] Oscar Arvizu MD [address] [facility] [address] [place] [address] [facility] Start: 05-30-2025 End: 53-46-9114Nrzycel encounter procedureNOMS ENDOCRINOLOGYStart: 01-17-2025 Influenza vaccinationInfluenza Vaccine (#1)NOMS HealthcareStart: 12-21-2024 End: 46-41-5461Bcrkhyg encounter procedureNOMS SWS NEUR BComment on above: ArrivedStart: 11-29-2024 End: 695236-ymjirsuivqmcwl D3 [Mass/volume] in Serum or PlasmaVitamin D 25 hydroxy Total Lab Routine Type 2 diabetes mellitus with hyperglycemia, without long-term current use of insulin (HCC) Expected: 11/29/2024 (Approximate), Expires: 11/29/2025NOAL HealthcareComment on above:Expected: 11/29/2024 (Approximate), Expires: 11/29/2025Start: 11-29-2024 End: 66-88-2155O-peptideC-peptide Lab Routine Type 2 diabetes mellitus with hyperglycemia, without long-term current use ofinsulin (HCC) Expected: 11/29/2024 (Approximate), Expires: 11/29/2025[facility] Work Phone: Comment on above:Expected: 11/29/2024 (Approximate), Expires: 11/29/2025Start: 11-29-2024 End: 29-86-1972Suifs 1996 panel - Serum or PlasmaLipid panel Lab Routine Type 2 diabetes mellitus with hyperglycemia, without long-term current use of insulin (HCC) Expected: 11/29/2024 (Approximate), Expires: 11/29/2025[facility] Comment on above:Expected: 11/29/2024 (Approximate), Expires: 11/29/2025Start: 11-29-2024 End: 22-64-9425Pzxhtwqtolon/Creatinine panel in random UrineMicroalbumin / creatinine urine ratio Lab Routine Type 2 diabetes mellitus with hyperglycemia, without long-term current use of insulin (HCC) Expected: 11/29/2024 (Approximate), Expires: 11/29/2025[facility] HealthcareComment on above:Expected: 11/29/2024 (Approximate), Expires: 11/29/2025Start: 11-29-2024 End: 07-82-9136Xrsog function panelRenal function panel Lab Routine Type 2 diabetes mellitus with hyperglycemia, without long-term current use of insulin (HCC) Expected: 11/29/2024 (Approximate), Expires: 11/29/2025[facility] Comment on above:Expected: 11/29/2024 (Approximate), Expires: 11/29/2025Start: 11-29-2024 End: 54-74-7696Rdnnsxoqlsh [Units/volume] in Serum or PlasmaTSH Lab Routine Acquired hypothyroidism Expected: 11/29/2024 (Approximate), Expires: 11/29/2025 NOM HealthcareComment on above:Expected: 11/29/2024 (Approximate), Expires: 11/29/2025Start: 11-29-2024 End: 86-88-0507Xrctmqfry (T4) free [Mass/volume] in Serum or PlasmaT4, free Lab Routine Acquired hypothyroidism Expected: 11/29/2024 (Approximate), Expires: 11/29/2025[facility] HealthcareComment on above:Expected: 11/29/2024 (Approximate), Expires: 11/29/2025Start: 11-29-2024 End: 19-75-5822Jtqgfbkgkjvlbtqv (T3) Free [Mass/volume] in Serum or PlasmaT3, free Lab Routine Acquired hypothyroidism Expected: 11/29/2024 (Approximate), Expires: 11/29/2025[facility] HealthcareComment on above:Expected: 11/29/2024 (Approximate), Expires: 11/29/2025Start: 11-29-2024 End: 92-18-5744Zgtvvus encounter procedureNOSAINT JOHN[facility] ENDOCRINOLOGYComment on above: Type 2 diabetes mellitus with hyperglycemia, without long-term current use of insulin ([facility])Start: 05-24-2024 End: 414519-swcdpknahrrggw D3 [Mass/volume] in Serum or PlasmaVitamin D 25 hydroxy Total Lab Routine Type 2 diabetes mellitus with hyperglycemia, without long-term current use of insulin ([facility]) Expected: 05/24/2024 (Approximate), Expires: 05/24/2025[facility] HealthcareComment on above:Expected: 05/24/2024 (Approximate), Expires: 05/24/2025Start: 05-24-2024 End: 31-50-5590Fixmu 1996 panel - Serum or PlasmaLipid panel Lab Routine Type 2 diabetes mellitus with hyperglycemia, without long-term current use of insulin ([facility]) Expected: 05/24/2024 (Approximate), Expires: 05/24/2025[facility] Comment on above:Expected: 05/24/2024 (Approximate), Expires: 05/24/2025Start: 05-24-2024 End: 77-29-7639Gzaafqmxzjkq/Creatinine panel in random UrineMicroalbumin / creatinine urine ratio Lab Routine Type 2 diabetes mellitus with hyperglycemia, without long-term current use of insulin ([facility]) Expected: 05/24/2024 (Approximate), Expires: 05/24/2025[facility] HealthcareComment on above:Expected: 05/24/2024 (Approximate), Expires: 05/24/2025Start: 05-24-2024 End: 24-40-2695Csrrq function panelRenal function panel Lab Routine Type 2 diabetes mellitus with hyperglycemia, without long-term current use of insulin ([facility]) Expected: 05/24/2024 (Approximate), Expires: 05/24/2025[facility] Comment on above:Expected: 05/24/2024 (Approximate), Expires: 05/24/2025Start: 05-24-2024 End: 31-16-1055Wpamlwlkqnk [Units/volume] in Serum or PlasmaTSH Lab Routine Acquired hypothyroidism ([facility]/HCC) Expected: 05/24/2024 (Approximate), Expires: 05/24/2025[facility] HealthcareComment on above:Expected: 05/24/2024 (Approximate), Expires: 05/24/2025Start: 05-24-2024 End: 33-64-3983Jvkqdawgk (T4) free [Mass/volume] in Serum or PlasmaT4, free Lab Routine Acquired hypothyroidism ([facility]/HCC) Expected: 05/24/2024 (Approximate), Expires:05/24/2025[facility] HealthcareComment on above:Expected: 05/24/2024 (Approximate), Expires: 05/24/2025Start: 05-24-2024 End: 53-17-5656Rkfrnspatokpgwml (T3) Free [Mass/volume] in Serum or PlasmaT3, free Lab Routine Acquired hypothyroidism ([facility]/HCC) Expected: 05/24/2024 (Approximate), Expires:05/24/2025[facility] Healthcare Work Phone: Comment on above:Expected: 05/24/2024 (Approximate), Expires: 05/24/2025Start: 05-24-2024 End: 52-14-7561Vmoyldt encounter procedureNOSAINT JOHN'S BREECH [facility] ENDOCRINOLOGYComment on above: Type 2 diabetes mellitus with hyperglycemia, without long-term current use of insulin ([facility])Start: 87-54-3638AhgtmntxzCentervilletart: 05-05-2024 End: 02-40-9158Ocrqaxsd Smxmvns7005/05/2024 1:00 PM EST Clinical Support [facility] [address] [place] [id number] Debbie Gomez, [facility] [address] [place] [address] ArrivedNOMERCY H[facility] [place] AUDComment on above:ArrivedStart: 03-23-2024 [facility] Work Phone: Start: 41-87-7320Ehbvmdgoi vaccinationInfluenza Vaccine (#1)[facility] HealthcareStart: 12-23-2023 End: 93-50-8980Wraohsc encounter ufczzaxcr94/06/2024 10:30 AM EDT Office Visit [facility] NEUR [address] [place] [address] Oscar Arvizu MD [address] [place] [address] [facility] NEURStart: 06-24-2023 End: 98-59-0509FR.doppler Carotid arteries - bilateralVascular US carotid artery duplex bilateral Imaging Routine Carotid stenosis, bilateral Stroke, lacunar (CMS/HCC) Cerebral artery occlusion with cerebral infarction (CMS/HCC) Expected: 06/24/2023 (Approximate), Expires: 06/24/2024[facility] Work Phone: comment on above:Expected: 06/24/2023 (Approximate), Expires: 06/24/2024Start: 77-75-7430Pmuqnhfuu vaccinationInfluenza Vaccine (#1) [facility] HealthcareStart: 89-40-8929Utksmgerxfhq Vaccine: 65+ Years (2 - PCV) Pneumococcal Vaccine: 65+ Years (2 - PCV)[facility] HealthcareStart: 06-25-2022 Pneumococcal Vaccine: 65+ Years (2 of 2 - PCV)Pneumococcal Vaccine: 65+ Years (2 of 2 - PCV)[facility]: 69-23-3174MSoV/Tdap/Td vaccine (3 - Td) DTaP/Tdap/Td vaccine (3 - Td)[facility], [facility]: 92-60-0265Cktvukcitf monitoringCreatinine monitoringBarney Children's Medical Center, [facility]: 54-46-5929Rvnqizjdx monitoringPotassium monitoringBarney Children's Medical Center, [facility] Centerart: 33-26-1186Akjaxrszwy monitoringCreatinine monitoringBarney Children's Medical Center, [place]art: 82-07-3949Cdzxynmnm monitoringPotassium monitoringL[facility]Health [facility]: 86-59-4439Ugfvplwcbi monitoringCreatinine monitoringOhioHealth Southeastern Medical Centerart: 58-78-5737Jgkcajugy monitoringPotassium monitoringLakeHealth Beachwood Medical Center: 16-38-1738B2C test (Diabetic or Prediabetic)A1C test (Diabetic or Prediabetic)[place] Start: 04-23-2019 End: 27-72-7123Sfyixf Visit04/23/2019 Office Visit Neurosurgery Reid Mejia MD [address] [facility], [address] [place] [id number] [employer]Start: 04-05-2019 End: 94-74-9312Ysmvqtjd EncounterMLOZ ORComment on above:L 3, L 4 LUMBAR DECOMPRESSION, 1 HOUR/ 1 C-ARMStart: 47-48-1363Jugexknnc vaccinationFlu vaccine (#1)[facility]: 80-31-3195Wh[facility]jo Wellness Visit (AWV)Annual Wellness Visit (AWV)[facility]: 47-47-6135Nfrsnfrpeiqk 65+ years Vaccine (1 of 1 - PPSV23)Pneumococcal 65+ years Vaccine (1 of 1 - PPSV23)[facility]: 48-34-1124Hmsfwuxoynsh 65+ years Vaccine (2 of 2 - PPSV23) Pneumococcal 65+ years Vaccine (2 of 2 - PPSV23)[facility]: 89-26-3409Vpfdr cancer screen colonoscopyColon cancer screen colonoscopyLakeHealth Beachwood Medical Center: 54-32-7924Hdvnomuf Vaccine (1 of 2)Shingles Vaccine (1 of 2)[facility]: 60-30-4474Tultaake microalbuminuria testDiabetic microalbuminuria testLakeHealth Beachwood Medical Center: 1960[object Object] Diabetic foot examLakeHealth Beachwood Medical Center: 94-91-0069Nlrcboos retinal exam Diabetic retinal examLakeHealth Beachwood Medical Center: 12-40-6006Jjubm screenLipid screenLakeHealth Beachwood Medical Center: 19-01-5093LCH screenAAA screenSum[facility] Campus [employer] [place], BELLEStart: 09-20-5444Vurfxmmrn C screenHepatitis C screenSumma Health Akron Campus [employer] [place] Start: 96-55-6187Rpwpeubuy for malignant neoplasm of colonNOMS HealthcareBasic Metabolic Panel w/ Reflex to MGBasic Metabolic Panel w/ Reflex to MG Lab Routine Daily until discontinued starting 04/08/2019, 2 completedSum[facility] [employer], [place] Comment on above:Daily until discontinued starting 04/08/2019, 2 completedCBC auto differentialCBC auto differential Lab Routine Daily until discontinued starting 04/08/2019, 2 [facility], BELLEComment on above:Daily until discontinued starting 04/08/2019, 2 completedCulture Blood #1Culture Blood #1 Microbiology STAT 04/07/2019 7:04 PM [facility] [employer] [place], BELLECulture Blood #2 Culture Blood #2 Microbiology STAT 04/07/2019 6:56 PM [facility] [employer] [place], [place]KG 12 LeadWestern Reserve HospitalHunt Country [place]ops [place], BELLEComment on above:Daily until discontinued starting 04/08/2019, 2 completedIncentive spirometry RT post-opIncentive spirometry RT post-op Respiratory Care Routine Every 2hr while awake until discontinued st arting 04/08/2019[facility] [employer] [place], BELLEComment on above:Every 2hr while awake until discontinued starting 04/08/2019Initiate Oxygen Therapy ProtocolWestern Reserve HospitalHunt Country Hops [place], [place]Comment on above:Daily until discontinued starting 04/05/2019Daily until discontinued starting 04/10/2019Daily until discontinued starting 04/08/2019Lactic acid, plasmaLactic acid, plasma Lab Routine Every 6hr until discontinued starting 04/08/2019, 5 [facility]Expl[facility], BELLEComment on above:Every 6hr until discontinued starting 04/08/2019, 5 completedPatient EducationHemorrhoids Colon polyps Know your MedMercy [facility] Work Phone: Patient referralKnox Community Hospital [facility] Work Phone: Phase I & II - metered glucoseWestern Reserve HospitalHunt Country [place], [place] Comment on above:As Needed until discontinued starting 04/05/20194X Daily (AC & HS) until discontinued starting 04/09/2019As Needed until discontinued starting 04/09/20194X Daily (AC & HS) until discontinued starting 04/08/2019As Needed until discontinued starting 04/08/2019 End: 01-09-2706GFJS GlucosePOCT Glucose Point of Care Testing STAT One Time for 1 Occurrences starting 04/05/2019 until 04/05/2019[facility], KYComment on above:One Time for 1 Occurrences starting 04/05/2019 until 04/05/2019 End: 12-22-9424TvouiqnmfxxkhTmlheabbvcmux Lab Routine Q48H for 2 Occurrences starting 04/09/2019 until 04/11/2019, 1 completedBarney [facility], KYComment on above:Q48H for 2 Occurrences starting 04/09/2019 until 04/11/2019, 1 completed PROTIME-INRBarney Children's Medical Center, KYComment on above:Daily until discontinued starting 04/10/2019, 4 completedDaily until discontinued starting 04/10/2019 End: 80-38-9553Jkfxm Oximetry Spot CheckPulse Oximetry Spot Check Respiratory Care Routine One Time for 1 Occurrences starting 04/05/2019 until 04/05/2019 [facility], KYComment on above:One Time for 1 Occurrences starting 04/05/2019 until 04/05/2019Renal function 1999 panel - Serum or [facility] HospitalRenal function 1999 panel - Serum or [facility] HospitalRenal function 1999 panel - Serum or [facility] HospitalRespiratory CultureRespiratory Culture Microbiology Routine 04/08/2019 5:06 AM [facility], [facility] Immunizations Immunization DateImmunizationNotesCare QucapfdnTxrmfksy71-15-4567bulfyysec virus vaccine, unspecified formulationTyler Estrada MD Work Phone: NOSt. Luke's HospitalVwmmzkxtig09-23-9780hpdvlgvtk virus vaccine, unspecified formulationSanta Rosa Medical Center-A Work Phone: NOSt. Luke's HospitalZvblybubcn03-00-5786QOYMIVS - Respiratory syncytial virus (RSV), vaccine, bivalent, protein subunit RSV prefusion F, dil uent reconstituted, 0.5 mL, PFAdventHealth Tampa Work Phone: [facility]landPtpgzvnfjm67-01-2257zijgmtzdc, high dose seasonal, preservative-freeTrevacishaq Sabillno Other [facility] SMS Assist Other 814949-75-1299swagiljrr virus vaccine, unspecified formulationCommunity [facility]02-13-2023Influenza, Seasonal, Quadrivalent, AdjuvantedDebAscension St. Luke's [facility] Work Phone: [facility]landHkczjusdwt09-68-4474dqjtxih toxoid, reduced diphtheria toxoid, and acellular pertussis vaccine, adsorbedTGH Brooksville Work Phone: [facility] NorthlandUszytfoorl01-27-2223miotkyrne virus vaccine, unspecified formulationOscar Arvizu MD Work Phone: [facility] NorthlandNlrkyruwrg30-71-6662Znresokox, Seasonal, Quadrivalent, AdjuvantedDebAscension St. Luke's Sleep Center Work Phone: [facility]landXdztzqazcn25-99-0713ggpbfovararx polysaccharide vaccine, 23 valentTGH Brooksville Work Phone: [facility]landFpjzpeuwzv55-79-4019rjtbsd vaccine recombinant [facility] Work Phone: [facility]landCklxxfcwjf73-50-3483xssuqp vaccine recombinant [facility] Work Phone: [facility] NorthlandZxcahjgkeo40-81-1082XWVXN-48 mRNA, Comirnaty (Pfizer)[facility]03-06-2021COVID-19 mRNA, Comirnaty (Pfizer)[facility]02-27-2021Pfizer Purple Cap SARS-CoV-2 VaccinationTGH Brooksville Work Phone: [facility] NorthlandHdhbpgpjuk20-95-1241dhslztrgo virus vaccine, unspecified formulationTGH [facility]ville Work Phone: [facility]landFvfwxnrhnz16-96-4614Wadrpnwc trivalent influenza vaccine, adjuvanted, preservative [facility] Work Phone: [facility]landIhjytisdsb64-93-2213libvfjyzz, high dose seasonal, preservative-[facility] Work Phone: [facility]landEfocdrlgfi67-11-5620zljtnmkgv, high dose seasonal, preservative-[facility] Work Phone: [facility] NorthlandHmknpavuqv00-44-1698dwbcupi toxoid, reduced diphtheria toxoid, and acellular pertussis vaccine, adsorbedTGH [facility]ville Work Phone: [facility] NorthlandPyjmaekfrq18-27-1035ythjabb toxoid, reduced diphtheria toxoid, and acellular pertussis vaccine, adsorbedSanta Rosa Medical Center- Work Phone: [facility] NorthlandXnljyurcvz96-11-2387AG(adult) unspecified formulationDeHCA [facility] Work Phone: [facility] NorthlandIaawqdrpjo15-14-3873czhbwu fever vaccineTGH Brooksville Work Phone: [facility] Payers DatePayer CategoryPayerPolicy [id number] 2024Medicare (Managed Care)[id number] [facility] [id number] 2023-Present [address] [place] [id number] [id number] Health InsuranceAETBRAYAN HEDRICK SENIOR SUPPLEMENT [id number] 2022-Present [address] [address] [place] [address] [id number] 2018Medicare [id number] [id number] [id number] 1960Medicare [id number] Health OekeebrsdVIQ790028469-37-2402Qdgv-gyb [id number] 2.16.840.1.533642.3.57[id number] 2.840.1.584726.3.57[id number] 2..840.1.095203.3.57[id number] 2.16.840.1.428616.3.579.2.[id number] 2.16.840.1.412184.3.57[id number] 2.16.840.1.620701.3.579.[id number] 2.16.840.1.532735.3.57[id number] 2.16.840.1.954535.3.579.2.83718-08-5548Oeqwsmc0603910 2.16.840.1.480258.3.57[id number] 2.16840.1.832385.3.579.[id number] 2.16.840.1.264075.3.57[id number] 2.16.840.1.610084.3.579.2.42215-34-2343Yybavxg1078258 2.16.840.1.812984.3.57[id number] 2.16.840.1.889606.3.57[id number] 2.16.840.1.373317.3.57[id number] 2..840.1.345842.3.57[id number] 2.16.840.1.887407.3.579.2.1259[id number] 9537g1t1-6fw9-0q5k-w77o-[id number] v8x18z26-4klx-222p-[id number] 2.840.1.9473[id number] 2.0.1.262229.3.579.2.531 Social History DateTypeDetailFacilityStart: 04-05-2019 End: 65-92-7414Vllbtki smoking status NHISFormer smokerChildren's Mercy Northland End: 34-18-1077Niaibsb of tobacco useCurrent smokerFort [place], [place] End: 45-90-2209Wlolnex of tobacco useCigarette SmokerFort [place], KYStart: 04-05-2019 End: 28-47-5746Xrjucupzpw smoked current (pack per day) [place], [place]History of tobacco useChews TobaccoLakeHealth Beachwood Medical Center: 04-05-2019 End: 40-22-1707Amdroew intakeCurrent drinker of alcohol (finding)[facility]: 57-11-8560Yqwlgks CommentsocialLakeHealth Beachwood Medical Center: 74-01-1204Lnk Assigned At [facility] HospitalNot on [facility]: 04-09-2019 History SDOH Social Connections Atlxo8KbjqsLakeHealth Beachwood Medical Center: 04-09-2019 History SDOH Social Connections Get Lozxyvbv2SvyofLakeHealth Beachwood Medical Center: 32-20-5833Epowfjs SDOH Social Connections Evetea8JumslLakeHealth Beachwood Medical Center: 98-27-4584Hfhbyly SDOH Social Connections Vpiaexuq6IdwuzLakeHealth Beachwood Medical Center: 66-18-8794Hglvfat SDOH Physical Activity TQL3SihlzLakeHealth Beachwood Medical Center: 10-11-2022 End: 56-82-6239Oik Assigned At [facility] SMS Assist Other Start: 84-53-5498Sdmkkpl use and exposureSmokeless tobacco non-userNOMS HealthcareStart: 05-36-8148Sakyyaj Comment>10 years since last smokedNOMS HealthcareStart: 51-13-2175Divkvyc Commentcaffeine: coffeeNOMS HealthcareStart: 34-10-4642Ubp Assigned At [facility] Healthtart: 05-21-2024 End: 97-43-7860FgmZxpo (finding)[facility] Goals DatePatient GoalDesired Activity/State Clinical Notes 11-24-2020 to 12-21-2024 Note Date & DdmkEewhAstjzjhn85-99-1648 History of Present illness Narrative* Oscar Arvizu MD - 12/21/2024 10:30 AM EDTAssociated Problem(s): Carotid stenosis, bilateral Plan US carotids 2025 before appt. * Oscar Arvizu MD - 12/21/2024 10:30 AM EDTAssociated Problem(s): AKASH (obstructive sleep apnea) Try to get original PSG (2011) but certainly get recent PSG (both, Fransisca). Long discussion re need to restart tx. Pt needs new supplies. OK to use old machine. Download in 1 mo, 3 mo, 6 mo, 11 mo. * Oscar Arvizu MD - 12/21/2024 10:30 AM EDTAssociated Problem(s): Neurogenic pain (Continue current regimen.) * Oscar Arvizu MD - 12/21/2024 10:30 AM EDTAssociated Problem(s): Cognitive decline (Continue current regimen.) * Oscar Arvizu MD - 12/21/2024 10:30 AM EDTAssociated Problem(s): Cervical paraspinal muscle spasm (Continue home PT.) * Oscar Arvizu MD - 12/21/2024 10:30 AM EDTAssociated Problem(s): Parkinson disease (HCC) (No clear need for med.) * Oscar Arvizu MD - 12/21/2024 10:30 AM EDT Images from the original note were not included. Outpatient Progress Note Patient: Don Elkins Dept: Neurology : 1950 Appt Date: 12/21/2024 Prev Appt: Visit date not found Chief Complaint Patient presents with Parkinson's Disease Appointment Note -- 1 yr Assessment and Plan - Assessment & Plan Carotid stenosis, bilateral Plan US carotids 2025 before appt. AKASH (obstructive sleep apnea) Try to get original PSG (2011) but certainly get recent PSG (both, [place]). Long discussion re need to restart tx. Pt needs new supplies. OK to use old machine. Download in 1 mo, 3 mo, 6 mo, 11 mo. Neurogenic pain (Continue current regimen.) Cognitive decline (Continue current regimen.) Cervical paraspinal [...] white matter lesion load US carotids (06/2023, Fransisca) - < 50% B . . . [...] new mask (mailed to him) was leaking. Failed Semeiology Circadian Noct oxim PSG PAPT [...] 5' 6 Wt 223 lb BMI 35.99 kg/m Smoking Status Former BSA 2.17 m Review of Systems - . Const: [...] SH - Past Medical History: Diagnosis Date [place]'s disease (HCC) Chronic kidney disease, stage III (moderate) ([facility]-HCC) Current use of insulin (HCC) Current [...] HISTORY Adrenal glands removed PLANTAR FASCIA SURGERY [place] MEDICATION MANAGEMENT Disease:Brigida's Disease [place] RELEASE THENAR MUSCLE Right 06/13/2014 thumb trigger [...] MOUTH TWICE DAILY *may TAKE THREE TIMES DAILY* 90 tablet 5 hydrocortisone (Cortef) 10 MG tablet [...] (Patient not taking: Reported on 05/24/2024) [DISCONTINUED] metFORMIN (Glucophage) 500 MG tablet Take [...] encounter medications on file as of 12/21/2024. Oscar Arvizu M.D. [facility] ? [address] ? [place] [id number] ? ? fax Neurology ? Clinical Neurophysiology ? Epilepsy ? Sleep Disorders ? Clinical Informatics documented in this encounterChildren's Mercy [id number] History of Present illness Narrative* Tyler Estrada MD - 11/29/2024 9:40 AM EDT Don Elkins is a 74 y.o. male Tyler Estrada MD presents with chief complaint of No chief complaint on file. HPI: Interim History 11/2024 Followup visit for type 2 diabetes. A1c 7.6, BG 152, ozepmic 1 mg daily . eyhlsofdqbuspo09 mg am and 10 mg pm and Florinef 0.1 every other day, GFR 47 on 05/2024. on levothyroxine 100 mcg daily. Lab on 2024, total cholesterol 113, LDL 56, albumin over creatinine 9, vitamin-D 30, TSH 1.08, free T4 1.41 ( 0.82-1.77), free T3 2.3 ( 2-4.4, sodium 131, potassium 5.1 Interim History 05/2023 Followup visit 05/24/2023 for [...] left forearm 0.681; left femoral neck 1.25, - 1; right femoral neck 1.032, -0.3; left femoral neck 0.992, -0.6. He is on Lantus 20 and Victoza 1.8 and metformin 500 twice a day. hydrocortisone and Florinef as before. 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 He used to follow him for along time. He had diagnoses of adrenal insufficiency in 2002 due to fatigue/tiredness. He is currently on hydrocortisone 20 mg in the morning, 10 mg in afternoon; Florinef 0.1 mg every other day; levothyroxine 150. Also, he has new lab range 7.7. He is on Lantus 20 units at bedtime, Victoza 1.8. Hebrought his medication list and problem list. He [...] Oral, Daily fludrocortisone (Florinef) 0.1 MG tablet Oral, Daily gabapentin (Neurontin) 800 MG tablet TAKE 1 TABLET BY MOUTH TWICE DAILY *may TAKE THREE TIMES DAILY* hydrocortisone (Cortef) 10 MG tablet TAKE 2 TABLETS BY MOUTH IN THE MORNING and TAKE 1 TABLET BY MOUTH IN THE EVENING hydrocortisone (CORTEF) 10 mg, Oral, 3 times daily levothyroxine (Synthroid, Levoxyl) 125 MCG tablet 1 tablet, Daily levothyroxine (SYNTHROID, LEVOXYL) 100 mcg, Oral, Daily before breakfast lisinopril 5 MG tablet Take 1 tablet [...] 1 tablet, Daily semaglutide (OZEMPIC) 1 mg, Subcutaneous, Weekly Semaglutide,0.25 or 0.5MG/DOS, 2 MG/3ML solution pen-injector As Directed tiZANidine (Zanaflex) 4 MG tablet 1 tablet, Oral, 2 times daily PRN ALLERGIES: No Known Allergies Past Medical History: Diagnosis Date [place]'s disease (HCC) Chronic kidney disease, stage III (moderate) ([facility]) Current use of insulin (HCC) Current [...] HISTORY Adrenal glands removed PLANTAR FASCIA SURGERY [place] MEDICATION MANAGEMENT Disease:[place]'s Disease [place] RELEASE THENAR MUSCLE Right 06/13/2014 thumb trigger release RADICAL PROSTATECTOMY [facility] 2009 Disease:Prostate cancer TRIGGER FINGER RELEASE REVIEW [...] recent change. No heart burn, liver or gallbladderdisease; no rectal bleeding or pain : No urinary pain , frequency or odor. MUSCULOSKELETAL: No muscle pain or cramps; no extremity weakness.No joint pain, stiffness, swellingor limitation of movement NEUROLOGY: No H/O seizures, stroke or fainting. No weakness, tremors. Hematology: No bleeding problems or excessive bruising ENDOCRINE: No increase in hunger, thirst or urination; admits compliance to medical management plan Feet: numbness tingling yes , ulcers or skin break no Lab Results Component Value Date HGBA1C 7.6 11/29/2024 HGBA1C 7.5 05/24/2024 Lab Results Component Value Date GLU 152 11/29/2024 GLU 268 (H) 06/01/2024 GLU 330 05/24/2024 Visit Vitals BP 124/84 Pulse 74 Resp 16 Ht 5' 6 Wt 227 lb SpO2 97% BMI 36.64 kg/m Smoking Status Former BSA 2.19 m ASSESSMENT AND PLAN: Assessment/Plan Diagnoses and all orders for this visit: Type 2 diabetes mellitus with hyperglycemia, without long-term current use of insulin (HCC) - POCT glucose manually resulted - POCT glycosylated hemoglobin (Hb A1C) docked device - C-peptide; Future - Vitamin D 25 hydroxy Total; Future - Microalbumin / creatinine urine ratio; Future - Lipid panel; Future - Renal function panel; Future - semaglutide (Ozempic) 4 MG/3ML solution pen-injector; Inject 1 mg under the skin 1 (one) time perweek We will continue his Ozempic 1 mg once weekly. Adrenal insufficiency (HCC) - hydrocortisone (Cortef) 20 MG tablet; Take 0.5 tablets (10 mg) by mouth in the morning and 0.5 tablets (10 mg) in the evening and 0.5 tablets (10 mg) before bedtime. We will continue with hydrocortisone 20 mg in the morning 10 after noon. Acquired hypothyroidism - T3, free; Future - T4, free; Future - TSH; Future He is currently on levothyroxine 100 mcg daily Encounter for dietary consultation Vitamin D deficiency Current chronic use of systemic steroids Osteopenia, unspecified location Hypothyroidism, unspecified - levothyroxine (Synthroid, Levoxyl) 100 MCG tablet; Take 1 tablet (100 mcg) by mouth Daily before meals Follow up in about 6 months (around 06/01/2025). documented in this encounterChildren's Mercy [id number] Chief Complaint: Follow-up HPI: 73-year-old with a history of coronary artery disease, coronary artery bypass graft surgery in 2018 Patient here for 6 mo follow up CAD, hypertension, and valve regurgitation. Had echo last month. He denies chest pain, SOB, and palpitations. Was admitted to [facility] in Apr 2024 for dehydration. Doing [...] problems arise Damaris Meier MD, MPH, FACC, [facility], FSVM Inte (more content not included)...[facility]01-06-2025 History of Present illness Narrative* Tyler Estrada MD - 05/24/2024 9:40 AM EST Don Elkins is a 73 y.o. male No ref. provider found presents with chief complaint of Diabetes andFollow-up HPI: Interim History 05/2023 Followup visit 05/24/2023 [...] the same Interim History 09/06: Followup visit 4/19/21 for type 2 diabetes. A1c in the office 12.1. Lab done in May: BUN 21, creatinine 1.4, GFR 50, TSH 2.53, free T4 of 1.03 (0.78 to 2.19). We did DEXA scan that shows left forearm 0.681; left femoral neck 1.25, - 1; right femoral neck 1.032, -0.3; left femoral neck 0.992, -0.6. He is on Lantus 20 and Victoza 1.8 and metformin 500 twice a day. hydrocortisone and Florinef as before. 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 He used to follow him for along time. He had diagnoses of adrenal insufficiency in 2002 due to fatigue/tiredness. He is currently on hydrocortisone 20 mg in the morning, 10 mg in afternoon; Florinef 0.1 mg every other day; levothyroxine 150. Also, he has new lab range 7.7. He is on Lantus 20 units at bedtime, Victoza 1.8. Hebrought his medication list and problem list. He [...] IN THE MORNING AND ONE TABLET BY MOUTHIN THE EVENING hydrocortisone (Cortef) 20 MG tablet [...] Known Allergies Past Medical History: Diagnosis Date [place]'s disease (CMS/HCC) Chronic kidney disease, stage III [...] HISTORY Adrenal glands removed PLANTAR FASCIA SURGERY [place] MEDICATION MANAGEMENT Disease:[place]'s Disease [place] RELEASE THENAR MUSCLE Right 06/13/2014 thumb trigger release RADICAL PROSTATECTOMY [facility] 2009 Disease:Prostate cancer TRIGGER FINGER RELEASE REVIEW [...] recent change. No heart burn, liver or gallbladderdisease; no rectal bleeding or pain : No urinary pain , frequency or odor. MUSCULOSKELETAL: No muscle pain or cramps; no extremity weakness.No joint pain, stiffness, swellingor limitation of movement NEUROLOGY: No H/O seizures, [...] hyperglycemia, without long-term current use of insulin ([facility]) - POCT glucose manually resulted - POCT [...] 6 months (around 11/21/2024). documented in this encounterChildren's Mercy [id number] [place] [address] Gastroenterology H&P Signed Patient: Don Elkins MR#: [id number] : 1950 Acct:[id number] Age/Sex: 73 / M Adm Date: 5 Loc: Room: Type: [facility] Attending Dr: Jeannie Farnsworth DO Copies to: DO Sal Collins MD~ Date of Service: 05/21/2024 HISTORY & PHYSICAL: Patient's history with special attention to the cardiovascular, pulmonary systems and the current problem was reviewed with the patient immediately prior to the procedure. Present medications and doses reviewed in the EMR. Allergies and pertinent laboratory tests were also re viewedat this time in the EMR. The physical [...] the EMR Documented By: Jeannie Farnsworth DO 05/21/24900 Signed By: 05/21/24900 [facility]01-03-2025 [place] [id number] Colonoscopy Procedure Report Signed with [place] Patient: Don Elkins MR#: [id number] : 1950 Acct:[id number] Age/Sex: 73 / M Adm Date: 5 Loc: Room: Type: [facility] Attending Dr: Jeannie Farnsworth DO Copies to: DO Sal Collins MD~ ADDENDUM1 nine total polyps removed. Addendum Documented By: Jeannie Farnsworth DO 05/21/24 0948 Addendum Signed By: 05/21/24 0947 Colonoscopy Date/Provider 05/21/2024 Jeannie Farnsworth DO Narrative Procedure: Colonoscopy with jumbo forceps polypectomy Indication: Screening for colon cancer. Last colonoscopy 10 to 15 years ago Pre-operative diagnosis: Screening for colon cancer Post-operative diagnosis: fair bowel prep, multiple polyps removed (7), internalhemorrhoids. Sedation: propofol per anesthesia dept O2 oximetry, hemodynamic monitoring was performed pre, during, and post procedure. Patient was identified, H&P completed, patient was given full explanation of the procedure as well as associatedrisks and written consent wasobtained prior to procedure. Patient expressed complete understanding of the procedure as well as alternatives to the procedure and to anesthesia and agreed to proceed with the procedure as indicated. Patient was immediately reassessed prior to IV sedation. Under IV sedation, patient was placed in the left lateral decubitus position. Digital rectal exam was performed and normal. Colonoscope was inserted and passed proximally to the cecum, which was identified by the ileocecal valve, appendiceal orifice and cecal floor. Colonoscope was slowly withdrawnwith the findings as below. [place] bowel prep score was fair. Findings: Cecum: 5 mm sessile polyp removed with jumbo forceps and sent to pathology Ascending colon: 3 to 5 mm sessile polyp in the jumbo forceps and sent to Hepatic flexure: Normal. Transverse colon: five 3 to 5 mm sessile polyps removed with jumbo forceps and sent to pathology. Splenic flexure: Normal. Descending colon: two 3 mm sessile polyps removed with jumbo forceps and sent topathology Sigmoid colon: Normal. Rectum: Normal. Retroflexed views: Rectum did show small internal hemorrhoids. Biopsy taken: Yes Complications: None EBL: Minimal Recommendations: -Repeat colonoscopy in 1 year with a 2-day bowel prep -Follow up pathology -Fiber rich diet increase water intake -Follow up in the office as needed -Follow up with PCP Following a period of recovery, patient was seen and given full explanation of the procedure. Patient tolerated the procedure well and will be discharged in satisfactory, stable condition. Jeannie Farnsworth DO Documented By: Jeannie Farnsworth DO 05/21/24 0901 Signed By: 05/21/24 0937 [facility]12-18-2024 History of Present illness Narrative * UDAY Vásquez - 05/05/2024 1:00 PM EST History: Pt has history of bilateral sensorineural [...] Dr. Mishra review audiogram documented in this [facility]10-29-2024 Evaluation note* Diagnosis Onset Date Resolution Status Admit Date [place] disease acuteOct2023 9:38amEncounter for screening colonoscopyacuteMarch 16, 2024 9:38amHypertensive chronic kidney disease with stage 1 through stage 4 chronic kiacuteMarch 16, 2024 9:38amMedicare annual wellness visit, subsequentacuteMarch 16, 2024 9:38amOSA (obstructive sleep apnea)acute March 16, 2024 9:38amScreening PSA (prostate specific antigen)acuteMarch 16, 2024 9:38am [facility] Work Phone: 1(388) 693-252808-20-2024 NoteCardiovascular Medicine [facility] SUBJECTIVE Chief Complaint Patient presents with Hypertension [...] gait and mobility Acute kidney failure (CMS/HCC) [place]'s disease (CMS/HCC) Atherosclerotic heart disease of [place] coronary artery without angina pectoris Cancer (CMS/HCC) [...] injector, INJECT 0.5MG SUBCUTANEO (more content not included)...[facility] 01-06-2024 NotePt is here for dental clearance for tooth extraction. Pt has htn, hyperlipidemia. Since last visit pt had labs with lipids, carotid. Review of Systems All other systems reviewed and are negative.[facility] 06-24-2023 History of Present illness Narrative* Oscar [...] GBP to 800 bid -> tid. * sOcar Arvizu MD - 06/24/2023 10:20 AM ESTAssociated Problem(s): Parkinson disease Stop med for now ad experimentum. If needs to restart, bid (before breakfast & before lunch). * sOcar Arvizu MD - 06/24/2023 10:00 AM EST Images from the original note were not included. Outpatient Progress Note Prev Appt: Visit date not found Chief Complaint Patient presents with Parkinson's Disease Assessment and Plan - Parkinson disease ([facility]) Stop med for now ad experimentum. If [...] white matter lesion load US carotids (03/2020, [place]) - ~40% carotid bulbs CT head (03/2019, [...] Failed Semeiology Circadian Noct oxim PSG PAPT ([place]) - AHI=2.2 @ [facility] Imaging Testing [...] SH - Past Medical History: Diagnosis Date Brig[place]'s disease (CMS/HCC) Diabetes (CMS/HCC) GERD (gastroesophageal reflux disease) History of hepatitis B Hyperlipidemia (CMS/HCC) Hypertension (CMS/HCC) Prostate cancer (CMS/HCC) Sleep apnea Thyroid disease (CMS/HCC) Past Surgical History: Procedure Laterality Date APPENDECTOMY CARPAL TUNNEL RELEASE Bilateral CATARACT EXTRACTION 2004 CHOLECYSTECTOMY 2014 COLONOSCOPY 2009 NOSE SURGERY x 2 PLANTAR FASCIA SURGERY [place] MEDICATION MANAGEMENT Disease:[place]'s Disease [place] RELEASE THENAR MUSCLE Right 06/13/2014 thumb trigger [...] file as of 06/24/2023. documented in this [place] [id number] Evaluation note* Encounter Date Diagnosis Assessment Notes Treatment Notes Treatment Clinical Notes Dec, Chronic kidney disease, stage II I (moderate) (ICD-10 - N18.30) He has a CKD due to the longstanding DM and HTN . His baseline serum creatinine is 1.5-1.6 mg/dL. Idiscussed with him the importance of good DM and HTN control to slow down the progression of CKD. Dec,iabetes mellitus with chronic kidney disease (ICD-10 - E11.22)Blood sugars are within the acceptable range. Continue to follow with PCP for DM management. Continue Lisinopril for renal protection. Dec,en hy kid w cr kid I-IV (ICD-10 - I12.9)Blood pressure is controlled and he appears to be euvolemic. Continue current medication Dec,Secondary hyperparathyroidism (ICD-10 - N25.81)MBD parameters including calcium, phosphorus, vitamin D and PTH are within the goal Dec,Hypomagnesemia (ICD-10 - E83.42)He has hypomagnesemia due to the unclear etiology. I have prescribed him oral magnesium. [employer] Other 02-02-2023 Evaluation note* Encounter Date Diagnosis Assessment Notes Treatment Notes Treatment Clinical Notes Jun, Chronic kidney disease, stage II I (moderate) (ICD-10 - N18.30) He has a CKD due to the longstanding DM and HTN . His baseline serum creatinine is 1.5-1.6 mg/dL. Idiscussed with him the importance of good DM and HTN control to slow down the progression of CKD. Jun,3Diabetes mellitus with chronic kidney disease (ICD-10 - E11.22)Blood sugars are within the acceptable range. Continue [...] history of adrenal insufficiency is not a candidatefor Kerendia. Jun,en hy kid w cr kid I-IV (ICD-10 - I12.9)Blood pressure is controlled and he appears to be euvolemic. Continue current medication Jun,Secondary hyperparathyroidism (ICD-10 - N25.81)MBD parameters including calcium, phosphorus, vitamin D and PTH are within the goal Jun,Hypomagnesemia (ICD-10 - E83.42)I have advised to take oral Magnesium every other day. [employer] Other 07-07-2022 Evaluation note* Encounter Date Diagnosis Assessment Notes Treatment Notes Treatment Clinical Notes Nov, Chronic kidney disease, stage II I (moderate) (ICD-10 - N18.30) He has a CKD due to the longstanding DM and HTN . His serum creatinine is 1.8 mg/dL above his baseline 1.4 mg/dL. His renal function has declined either due to hemodynamic changes or progression of CKD. I discussed with him the importance of good DM and HTN control to slow down the progression of CKD. Nov,2Diabetes mellitus with chronic kidney disease (ICD-10 - E11.22)Blood sugars are within the acceptable range. Continue to follow with PCP for DM management. Continue Lisinopril for renal protection. I would recommend to decrease the dose of the metformin to 500 mg twice daily as his EGFR is below 45 mL/min. I have advised him to contact his PCP or sound effects supervisor. 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 Continue current medication Nov,econdary hyperparathyroidism (ICD-10 - N25.81)MBD parameters including calcium, phosphorus, vitamin D and PTH are within the goal [employer] Other 01-13-2022 Evaluation note* Encounter Date Diagnosis Assessment Notes Treatment Notes Treatment Clinical Notes May, Chronic kidney disease, stage II I (moderate) (ICD-10 - N18.30) He has a CKD due to the longstanding DM and HTN . His serum creatinine is 1.8 mg/dL above his baseline 1.4 mg/dL. His renal function has declined either due to hemodynamic changes or progression of CKD. I discussed with him the importance of good DM and HTN control to slow down the progression of CKD. May,2Diabetes mellitus with chronic kidney disease (ICD-10 - E11.22) Blood sugars are within the acceptable range. Continue to follow with PCP for DM management. Continue Lisinopril for renal protection. I would recommend to decrease the dose of the metformin to 500 mg twice daily as his EGFR is below 45 mL/min. I have advised him to contact his PCP or sound effects supervisor. May,en hy kid w cr kid I-IV (ICD-10 - I12.9) Blood pressure is controlled and he appears to be euvolemic. Continue current medication May,econdary hyperparathyroidism (ICD-10 - N25.81) MBD parameters including calcium, phosphorus, vitamin D and PTH are within the goal May,nemia of renal disease (ICD-10 - D63.1) Hemoglobin is within goal. We will check iron studies. [employer] Other 08-04-2021 NoteHNO ID: [id number] Author: Claudio Parker MD Service: ? Author Type: Physician Type: Progress Notes Filed: 12/21/2020 12:37 PM Note Text: PATIENT NAME: Don Elkins DATE: 12/20/2020 PRIMARY CARE PHYSICIAN: Dr. Sal Sabillon/Marj Demarco, IR[employer] WORKER APPRENTICE OTHER PHYSICIANS: Dr. Wilson, Dr. Cortez, Dr. [...] TUNNEL Bilateral - COLONOSCOP W/ OR W/O [facility] SPEC Colonoscopy - CORONARY ARTERY [...] CHF - Diabetes Sis (more content not included)...[facility] 11-24-2020 NoteHNO ID: [id number] Author: Claudio Parker MD Service: ? Author Type: Physician Type: Progress Notes Filed: 11/24/2020 2:10 PM Note Text: PATIENT NAME: Don Elkins DATE: 11/24/2020 PRIMARY CARE PHYSICIAN: Dr. Sal Sabillon/Marj Demarco CNP OTHER PHYSICIANS: Dr. Wilson, Dr. Cortez, Dr. Arvizu ([facility] Neurology) HPI: This is a [...] HISTORY: PAST MEDICAL HISTORY Diagnosis Date - [place]'s disease (HCC) - Coronary arteriosclerosis - DVT (deep venous thrombosis) (HCC) - Hepatitis B - HTN (hypertension) - Hyperthyroidism - AKASH (obstructive sleep apnea) - Prostate cancer (HCC) - Pulmonary embolism (HCC) PAST SURGICAL HISTORY: PAST SURGICAL HISTORY Procedure Laterality Date - APPENDECTOMY - CARPAL TUNNEL Bilateral - COLONOSCOP W/ OR W/O [facility] SPEC Colonos (more content not included)...[facility] No InformationNort SMS Assist Other Evaluation note* Diagnosis Parkinson's disease without [...] with cerebral infarction documented in this encounter [facility]landEvaluation note* Diagnosis Onset Date Resolution Status [place] disease acuteCKD (chronic kidney disease) stage 3, GFR 30-59 ml/minacute [id number]mjfd hyperparathyroidismacuteType 2 diabetes mellitus with diabetic chronic kidney diseaseacute [facility] Work Phone: Evaluation note* Diagnosis Onset Date Resolution Status [place] disease acuteCKD (chronic kidney disease) stage 3, GFR 30-59 ml/minacute [id number]ckm hyperparathyroidismacuteType 2 diabetes mellitus with diabetic chronic kidney diseaseacuteScreening PSA (prostate specific antigen)acute [facility] Work Phone: Evaluation note* Diagnosis Parkinson's [...] of insulin (CMS/HCC) [facility] in [facility]* Diagnosis Parkinson's disease without dyskinesia [...] Osteopenia, unspecified location documented in this encounter [facility]* Diagnosis Onset Date Resolution Status Admit Date [place] disease acuteApril 2024 8:35amCKD (chronic kidney disease) stage 3, GFR 30-59 ml/minacuteApril 2024 8:35amHypertensive chronic kidney disease with stage 1 through stage 4 chronic kiacuteApril 2024 8:35amHypomagnesemiaacute Sridevi 2024 8:35amSecondary hyperparathyroidismacuteApril 2024 8:35am Type 2 diabetes mellitus with diabetic chronic kidney diseaseacuteApr2024 8:35am [facility] Work Phone: Evaluation note* Diagnosis 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 (HCC)- Primary Neurogenic pain Cognitive decline Cervical paraspinal muscle spasm Spasm of muscle Carotid stenosis, bilateral Occlusion and stenosis of carotid artery without mention of cerebral infarction Stroke, lacunar (HCC) Unspecified cerebral artery occlusion with cerebral infarction Cerebral artery occlusion with cerebral infarction (HCC) Unspecified cerebral artery occlusion with cerebral infarction Carotid stenosis, bilateral- Primary Occlusion and stenosis of carotid artery without mention of cerebral infarction Cognitive decline Neurogenic pain Cervical paraspinal muscle spasm Spasm of muscle 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 (HCC) AKASH (obstructive sleep apnea) Obstructive sleep apnea (adult) (pediatric) RLS (restless legs syndrome) Restless legs syndrome (RLS) Type 2 diabetes mellitus with hyperglycemia, without long-term current use of insulin (HCC)- Primary Adrenal insufficiency (HCC) Glucocorticoid deficiency Acquired hypothyroidism Unspecified hypothyroidism Encounter for dietary consultation Vitamin D deficiency Current chronic use of systemic steroids Osteopenia, unspecified location Hypothyroidism, unspecified documented in this encounter [facility]* Diagnosis 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 (HCC)- Primary Neurogenic pain Cognitive decline Cervical paraspinal muscle spasm Spasm of muscle Carotid stenosis, bilateral Occlusion and stenosis of carotid artery without mention of cerebral infarction Stroke, lacunar (HCC) Unspecified cerebral artery occlusion with cerebral infarction Cerebral artery occlusion with cerebral infarction (HCC) Unspecified cerebral artery occlusion with cerebral infarction Carotid stenosis, bilateral- Primary Occlusion and stenosis of carotid artery without mention of cerebral infarction Cognitive decline Neurogenic pain Cervical paraspinal muscle spasm Spasm of muscle 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 (HCC) AKASH (obstructive sleep apnea) Obstructive sleep apnea (adult) (pediatric) RLS (restless legs syndrome) Restless legs syndrome (RLS) Carotid stenosis, bilateral- Primary Occlusion and stenosis of carotid artery without mention of cerebral infarction AKASH (obstructive sleep apnea) Obstructive sleep apnea (adult) (pediatric) Neurogenic pain Cognitive decline Cervical paraspinal muscle spasm Spasm of muscle 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 (HCC) documented in this encounter [facility] HealthcareHistory and physical note Author Jeannie Farnsworth [facility] HospitalNote Date/TimeJanuary 2024 10:16am [place] [address] Gastroenterology H&P Signed Patient: Don Elkins MR#: [id number] : 1950 Acct:[id number] Age/Sex: 73 / M Adm Date: 5 Loc: Room: Type: [facility] Attending Dr: Jeannie Farnsworth DO Copies to: DO Sal Collins MD~ Date of Service: 05/21/2024 HISTORY & PHYSICAL: Patient's history with special attention to the cardiovascular, pulmonary systems and the current problem was reviewed with the patient immediately prior to the procedure. Present medications and doses reviewed in the EMR. Allergies and pertinent laboratory tests were also re viewedat this time in the EMR. The physical [...] an appropriate candidate for the procedure. Jeannie L Ly, DO Present medication and doses reviewed in the EMR Documented By: Jeannie Farnsworth DO 05/21/24900 Signed By: <Electronically signed by Jeannie Farnsworth DO> 05/21/24900 [facility] Work Phone: History general Narrative - Reported* Type Description Date Medical History Addisons disease Medical Historydiabetes mallitusMedical Historyheart diseaseMedical History HypothyroidismMedical Historyrestless leg syndromeMedical Historyprostate cancer Medical HistoryParkinsonsMedical Historyblood clots - lungsSurgical HistoryFoot SurgerySurgical Historycarpal tunnel release bilateralSurgical Historytrigger finger release bilateral handsSurgical HistoryprostatectomySurgical Historyback surgerySurgical Historyheart triple bypass surgerySurgical Historycataracts, bilaterallySurgical Historygall bladderSurgical HistoryappendectomySurgical Historynasal surgeries x4Tffheuuz Historyganglion cystHospitalization Historysee aboveHospitalization Historypneumonia [facility] Discharge instructions Additional Instructions DISCHARGE [...] NOT operate machinery such as power tools, lawn mowers, snow blowers, sewing machines, etc. for [...] preparation. -Follow up with PCP. -Office number [phone]. [facility] Work Phone: Summary Purpose Family History Relationship Condition Age at Onset Recorded Date/T danny brother Hypertension Unknown Diabetes mellitusUnknownDeceasedUnknownMalignant neoplasmUnknownfatherHistory of strokeUnknownNot SpecifiedDiabetes mellitusUnknownHeart diseaseUnknown HypertensionUnknownsisterDiabetes mellitusUnknown Relationship Condition Age at Onset Recorded Date/T danny brother Hypertension Unknown Diabetes mellitusUnknownDeceasedUnknownMalignant neoplasmUnknownfatherHistory of strokeUnknownmotherDiabetes mellitusUnknownHeart diseaseUnknownHypertension UnknownsisterDiabetes mellitusUnknown Advance Directives TypeDate RecordedPatient RepresentativeExplanationAdvance Directives and Living WillPower of AttorneyTypeDate RecordedPatient RepresentativeExplanationAdvance Directives and Living WillPower of AttorneyCode StatusDate ActivatedDate InactivatedCommentsFull Code04/09/2019 5:50 PMFull Code04/08/2019 1:06 AM 04/09/2019 4:44 PMCode StatusDate ActivatedDate InactivatedCommentsFull Code 04/08/2019 1:06 AM Advance Directive Response [...] your physician 11) Call your doctor at [phone] for an appointment (or follow up as [...] call OFFICE. The 24- hour phone is [phone] 13) If you are unable to contact [...] Continuity of Care Form Patient Name: Don Elikns : 1950 Admit date: 04/07/2019 Discharge date: [...] Hospital Unit/Room#: W276/W276-01 Discharging Unit Phone Number: [phone] Emergency Contact: Extended Emergency Contact Information Primary Emergency Contact: Jacquelyn Elkins Address: [address] [place] [address] [place] [address] Relation: Spouse Past Surgical History: Past Surgical [...] DECOMPRESSION performed by Reid Mejia MD at [facility] OR NOSE SURGERY x 2 ORs PLANTAR [...] Independent Dressing Independent Toileting Independent Feeding Independent Emu Farmer Independent Med Delivery whole Wound Care Documentation [...] (for information only, NOT a DME order): {EQUIPMENT:[id number]} Other Treatments: Patient's personal belongings (please select all that are sent with patient): glasses,cellphone, mixing and dispensing supervisor, pants,shrit, slippers, jacket RN SIGNATURE: MANAGEMENT/SOCIAL WORK SECTION Inpatient Status Date: Readmission Risk Assessment Score: Readmission Risk Risk of Unplanned Readmission: 23 Discharging to Facility/ Agency Name: [facility] Address: Phone: Fax: Dialysis Facility (if applicable) Name: Address: Dialysis Schedule: Phone: Fax: Tobacco Hanger/Cyanide Pot Tender signature: ICIAN SECTION Prognosis: Good Condition at [...] Camacho - 04/13/2019 11:34 AM EST [facility] MUSIC THERAPY Date: 04/13/2019 Patient Name: [...] rehab. But thank you anyhow. Marcelina Camacho MT- 04/13/2019 * Pj Stoner RN - 04/13/2019 [...] Date: 04/13/2019 Patient Name: Don Elkins Account: [id number] : 1950 (68 y.o.) Room: [place] [address] Diagnosis: Impaired mobility and ADL's d/t severe lumbar spinal stenosis Past Medical History: Diagnosis Date Acute non-ST elevation myocardial infarction (NSTEMI) ([facility]) Acute post-hemorrhagic anemia Acute respiratory insufficiency following [...] DECOMPRESSION performed by Reid Mejia MD at [facility] OR NOSE SURGERY x 2 ORs PLANTAR [...] Assistance: Independent(No AD) Transfer Assistance: Independent Active Coremaking Supervisor: Yes Occupation: 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, 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 Leisure & Hobbies: build and make things, golf, looking up in berry Additional Comments: Per BUY BOAT OPERATOR: Pt reports that his is responsible for [...] Limits Cognition Status: Cognition Overall Cognitive Status: [facility] Arousal/Alertness: Appropriate responses to stimuli Following [...] 6 Perception Status: Perception Overall Perceptual Status: [facility] Sensation Status: Sensation Overall Sensation Status: [facility] Vision and Hearing Status: Vision Vision: [...] 04/13/2019 8:41 AM EST Occupational Therapy Facility/Department: [facility] Daily Treatment Note NAME: Don Elkins [...] of Acute non-ST elevation myocardial infarction (NSTEMI) ([facility]), Acute post-hemorrhagic anemia, Acute respiratory insufficiency, Bronchiectasis ([facility]), CAD (coronary artery disease), Calculus of urinary tract, Cancer ([facility]), Chronic back pain, CKD (chronic kidney disease), COPD (chronic obstructive pulmonary disease) ([facility]), Diabetes mellitus ([facility]), Diverticulosis of large intestine, DVT (deep venous thrombosis) ([facility]), GERD (gastroesophageal reflux disease), Hx of blood clots, Hyperlipidemia, Hypertension, Lumbar stenosis with neurogenic claudication, Primary adrenocortical insufficiency ([facility]), Pulmonary embolism ([facility]), Pulmonary embolism without acute cor pulmonale ([facility]), Restless leg syndrome, RLS (restless legs syndrome), Sleep apnea, Thyroid disease, and Tubularadenoma of colon. has a past surgical history that includes Carpal tunnel release (Bilateral, ); Hemorrhoid surgery (); Cardiac surgery (03/2018); Prostatectomy (2011); Colonoscopy; Endoscopy, colon, diagnostic; Cholecystectomy (2013); eye surgery; Appendectomy; cyst removal (Bilateral, ); Nose surgery (); Plantar fascia surgery (Left, ); Finger trigger release (Bilateral, 1990s); IVC filter insertion (02/2018); IVC filter removal [...] Transfers: Modified independence Cognition Overall Cognitive Status: WF Cognition Comment: 6 7 7 7 6 [...] Gail Garcia RN - 04/13/2019 8:35 AM [facility] INPATIENT REHABILITATION INDEPENDENT IN ROOM NOTE [...] CPAP. Will continue to monitor. Jaspreet Park, BUY BOAT OPERATOR - 04/12/2019 2:54 PM STEFFI Hoyt Facility/Department: [facility] Speech Language Pathology Discharge Report Patient: [...] pt's POC as deemed necesary by treating BUY BOAT OPERATOR. Long-term Goals Timeframe for Long-term Goals: 3-5x/week [...] is no longer warranted Signature: Jaspreet Frost CCC-BUY BOAT OPERATOR, Date: 04/12/2019, Time: 2:54 PM Sheila Howe, STEAM POWER PLANT OPERATOR - 04/12/2019 1:01 PM [facility] RECREATIONAL THERAPY Initial Evaluation Date: [...] services, its supported services and groups include: [facility] Support Group, Pet Therapy, Individual Music [...] education provided: Yes Learner: Patient Education provided: [facility] Method of Education: Discussion [...] signed by: YUDELKA Negro Date: 04/12/2019 Jaspreet Park, DHIRAJ - 04/12/2019 11:00 AM STEFFI Hoyt Facility/Department: [facility] Speech Language Pathology Treatment Note Don Henrietta [...] and time management with 75% accuracy. When BUY BOAT OPERATOR requested pt double check his work, he [...] pt's POC as deemed necesary by treating BUY BOAT OPERATOR. Pt was able to read at the paragraph level with 100% accuracy. No difficulty writing sentences or functional check writing tasks. Pt did say that his Dyslexia causes him to be slower with writing tasks. 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 Pt was able to complete a [...] 04/12/2019 10:31 AM EST Occupational Therapy Facility/Department: [facility] Daily Treatment Note NAME: Don Elkins [...] of Acute non-ST elevation myocardial infarction (NSTEMI) ([facility]), Acute post-hemorrhagic anemia, Acute respiratory insufficiency, Bronchiectasis ([facility]), CAD (coronary artery disease), Calculus of urinary tract, Cancer (HCC), Chronic back pain, CKD (chronic kidney disease), COPD (chronic obstructive pulmonary disease) ([facility]), Diabetes mellitus (HCC), Diverticulosis of large intestine, DVT (deep venous thrombosis) ([facility]), GERD (gastroesophageal reflux disease), Hx of blood clots, Hyperlipidemia, Hypertension, Lumbar stenosis with neurogenic claudication, Primary adrenocortical insufficiency (HCC), Pulmonary embolism (HCC), Pulmonary embolism without acute cor pulmonale ([facility]), Restless leg syndrome, RLS (restless legs syndrome), [...] require any assistance. Patient used reachers to pick up man one inch cubes from the floor. Patient [...] EST Physical Therapy Rehab Treatment Note Facility/Department: [facility] Room: R2/R238-01 NAME: Don Elkins : [...] 04/12/19 at 9:54 AM * Lulu Lee [facility] - 04/12/2019 8:20 AM EST Clinical Pharmacy [...] PharmD 04/12/2019 8:17 AM * Ellie Juárez, - 04/12/2019 7:49 AM EST Subjective: The [...] device (slide rail) Walk: 6 - Modified [place] Walks at least 150 feet with an [...] risk: progressive activities in PT, continue prophylaxis ELISABETH hose, elevation and patient is on prophylactic [...] the care of Dr. Reid Mejia at [facility] 04/05/2019. Patient is to transition slowly [...] incentive spirometry Ellie Juárez D.O., PM&R Attending [phone] [facility] Luz Elena * Kirsten Dailey RN - 04/12/2019 5:59 [...] EST Physical Therapy Rehab Treatment Note Facility/Department: [facility] Room: [place] [address] NAME: Don Elkins : 1950 (68 y.o.) [...] 04/11/2019 10:14 AM EST Occupational Therapy Facility/Department: [facility] Daily Treatment Note NAME: Don Elkins [...] of Acute non-ST elevation myocardial infarction (NSTEMI) ([facility]), Acute post-hemorrhagic anemia, Acute respiratory insufficiency, Bronchiectasis ([facility]), CAD (coronary artery disease), Calculus of urinary tract, Cancer (HCC), Chronic back pain, CKD (chronic kidney disease), COPD (chronic obstructive pulmonary disease) (HCC), Diabetes mellitus (HCC), Diverticulosis of large intestine, DVT (deep venous thrombosis) ([facility]), GERD (gastroesophageal reflux disease), Hx of blood [...] Out 1100 Minutes 30 trainin minutes Sharmin Ronquillo OTR/L * Ellie Juárez, - 04/11/2019 10:08 AM [...] instruction well. Pt also instructed in double registered phlebotomist part time lateral negotiation technique to utilize when back [...] risk: progressive activities in PT, continue prophylaxis ELISABETH hose, elevation and patient is on prophylactic [...] the care of Dr. Reid Mejia at [facility] 04/05/2019. Patient is to transition slowly [...] incentive spirometry Ellie Juárez D.O., PM&R Attending [phone] [facility] Luz Elena * Jaspreet Pleitez, OT - 04/11/2019 9:07 AM EST Occupational Therapy Facility/Department: [facility] Daily Treatment Note NAME: Don Shrestha Abraham : 1950 Date of Service: 04/11/2019 Discharge Recommendations: Continue to assess pending progress Assessment Activity Tolerance Activity Tolerance: Patient Tolerated treatment well Safety Devices Safety Devices in place: Yes Type of devices: All fall risk precautions in place Patient Diagnosis(es): There were no encounter diagnoses. has a past medical history of Acute non-ST elevation myocardial infarction (NSTEMI) ([facility]), Acute post-hemorrhagic anemia, Acute respiratory insufficiency, Bronchiectasis ([facility]), CAD (coronary artery disease), Calculus of urinary tract, Cancer (HCC), Chronic back pain, CKD (chronic kidney disease), COPD (chronic obstructive pulmonary disease) ([facility]), Diabetes mellitus (HCC), Diverticulosis of large intestine, [...] EST Physical Therapy Rehab Treatment Note Facility/Department: [facility] Room: R2/R238-01 NAME: Don Elkins : [...] instruction well. Pt also instructed in double registered phlebotomist part time lateral negotiation technique to utilize when back [...] 2: Pt to complete TUG in 13.5m/s watermelon inspector goals alf goal 1: Pt to complete all bed mobility with indep alf goal 2: Pt to complete transfers with indep watermelon inspector goal 3: pt to ambulate >150 ft with no AD independently alf goal 4: pt to navigate 12 steps with 1 HR mod indep Therapy Time: Individual Time In 1300 Time Out 1330 Minutes 30 Timed Code Treatment Minutes: 30 Minutes(gait 20min; therex 10min) Sera Escalera, PT, 04/10/19 at 2:46 PM * Rox Vergara YUDI - 04/10/2019 2:23 PM EST Occupational Therapy Facility/Department: [facility] Daily Treatment Note NAME: Don Elkins [...] of Acute non-ST elevation myocardial infarction (NSTEMI) ([facility]), Acute post-hemorrhagic anemia, Acute respiratory insufficiency, Bronchiectasis ([facility]), CAD (coronary artery disease), Calculus of urinary tract, Cancer (HCC), Chronic back pain, CKD (chronic kidney disease), COPD (chronic obstructive pulmonary disease) ([facility]), Diabetes mellitus (HCC), Diverticulosis of large intestine, DVT (deep venous thrombosis) ([facility]), GERD (gastroesophageal reflux disease), Hx of blood [...] 30 minutes YUDI Hughes * Wendy Devlin, DHIRAJ - 04/10/2019 12:47 PM EST [facility] Facility/Department: [facility] Speech Language Pathology Initial Speech/Language/Cognitive Assessment NAME:Don Elkins : 1950 (68 y.o.) [facility] DATE: 04/09/2019 PATIENT DIAGNOSIS(ES): Impaired gait and mobility [R26.89] No chief complaint on file. Patient Active Problem List Diagnosis Date Noted Iron deficiency anemia 04/09/2019 Meralgia paresthetica 04/09/2019 Obstructive sleep apnea syndrome 04/09/2019 Abnormality of gait and mobility due to Impaired Mobility and ADL's due to Severe Lumbar Spinal Stenosis[facility] 04/09[facility]2019 CKD (chronic kidney disease) [...] 3, L 4 LUMBAR DECOMPRESSION performed by Ried Mejia MD at [facility] OR NOSE SURGERY x 2 ORs PLANTAR FASCIA SURGERY Left PROSTATECTOMY 2011 DATE ONSET: 04/09/2019 Date of Evaluation: 04/10/2019 Evaluating Therapist: Wendy Devlin BUY BOAT OPERATOR Assessment: Cognitive Diagnosis: Pt presents with moderate cognitive-linguistic deficits characterized by high-level word finding, paragraph comprehension, short-term memory, verbal reasoning, and problem solving deficits Recommendations: Requires BUY BOAT OPERATOR Intervention: Yes Duration/Frequency of Treatment: 3-5x/week of [...] pt's POC as deemed necesary by treating BUY BOAT OPERATOR. 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 Leisure & Hobbies: wood working. Additional Comments: Pt reports that his is responsible for managing his medications and finances. Vision Vision: Impaired Vision Exceptions: Wears glasses at all times Hearing Hearing: Exceptions to WFL(Tinnitus) Objective: Oral/Motor Oral Motor: Within functional limits Auditory Comprehension Comprehension: Exceptions Yes/No Questions: Mild(1515 simple yes/no, 01/28 re: passage) One Step [...] assist Memory: 3- Moderate assist Therapy Time BUY BOAT OPERATOR Individual Minutes Time In: 1020 Time Out: 1052 Minutes: 32 Signature: * Seth Moeller OTR/Atilio - 04/10/2019 12:39 PM EST The patient completed the [facility] Mental Status (UMS) Examination on this date, [...] PT - 04/10/2019 12:36 PM EST Facility/Department: [facility] Rehabilitation Initial Assessment: Physical Therapy [facility]: Don Elkins : 1950 Date of Service: 04/10/2019 Rehab Diagnosis(es): Impaired Mobility and ADLs d/t severe lumbar spinal stenosis Patient Active Problem List Diagnosis Date Noted Iron deficiency anemia 04/09/2019 Meralgia paresthetica 04/09/2019 Obstructive sleep apnea syndrome 04/09/2019 Abnormality of gait and mobility due to Impaired Mobility and ADL's due to Severe Lumbar Spinal Stenosis. [facility] Re[facility] admit 04/09/19. 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 Cancer ([facility]) 03/30/2019 Restless leg syndrome 03/30/2019 Former smoker, [...] Date Acute non-ST elevation myocardial infarction (NSTEMI) ([facility]) Acute post-hemorrhagic anemia Acute respiratory insufficiency following thoracic surgery Bronchiectasis ([facility]) CAD (coronary artery disease) 03/2018 Triple bypass Calculus of urinary tract Cancer ([facility]) prostatectomy Chronic back pain CKD (chronic kidney disease) COPD (chronic obstructive pulmonary disease) (HCC) Diabetes mellitus ([facility]) dx 2016 Diverticulosis of large intestine DVT (deep venous thrombosis) ([facility]) GERD (gastroesophageal reflux disease) Hx of blood clots 02/2018 PE Hyperlipidemia meds > 20 yrs Hypertension meds > 20 yrs Lumbar stenosis with neurogenic claudication Primary adrenocortical insufficiency (HCC) Pulmonary embolism ([facility]) 06/23/2018 2018 / has been on Coumadin since / Pulmonary embolism without acute cor pulmonale ([facility]) Restless leg syndrome RLS (restless legs syndrome) [...] DECOMPRESSION performed by Reid Mejia MD at [facility] OR NOSE SURGERY x 2 ORs PLANTAR [...] Assistance: Independent(No AD) Transfer Assistance: Independent Active Coremaking Supervisor: Yes Occupation: Retired 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 Pt also instructed in double registered phlebotomist part time lateral negotiation technique to utilize when back [...] 2: Pt to complete TUG in 13.5m/s watermelon inspector goals watermelon inspector goal 1: Pt to complete all bed mobility with indep watermelon inspector goal 2: Pt to complete transfers with indep watermelon inspector goal 3: pt to ambulate >150 ft with no AD independently alf goal 4: pt to navigate 12 steps [...] Recommended toilet hygeine wand, sock aid and building principal. Transfer care to lead OTR Assessment Performance [...] of Acute non-ST elevation myocardial infarction (NSTEMI) ([facility]), Acute post-hemorrhagic anemia, Acute respiratory insufficiency, Bronchiectasis ([facility]), CAD (coronary artery disease), Calculus of urinary tract, Cancer ([facility]), Chronic back pain, CKD (chronic kidney disease), COPD (chronic obstructive pulmonary disease) ([facility]), Diabetes mellitus ([facility]), Diverticulosis of large intestine, DVT (deep venous thrombosis) ([facility]), GERD (gastroesophageal reflux disease), Hx of blood clots, Hyperlipidemia, Hypertension, Lumbar stenosis with neurogenic claudication, Primary adrenocortical insufficiency ([facility]), Pulmonary embolism ([facility]), Pulmonary embolism without acute cor pulmonale ([facility]), Restless leg syndrome, RLS (restless legs syndrome), [...] Assistance: Independent(No AD) Transfer Assistance: Independent Active Coremaking Supervisor: Yes Occupation: 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 Patient Active Problem List Diagnosis Date Noted Iron deficiency anemia 04/09/2019 Meralgia paresthetica 04/09/2019 Obstructive sleep apnea syndrome 04/09/2019 Abnormality of gait and mobility due to Impaired Mobility and ADL's due to Severe Lumbar Spinal Stenosis. [facility] admit 04/09/19. 04/09/2019 CKD (chronic kidney [...] Date Acute non-ST elevation myocardial infarction (NSTEMI) ([facility]) Acute post-hemorrhagic anemia Acute respiratory insufficiency following [...] DECOMPRESSION performed by Reid Mejia MD at [facility] OR NOSE SURGERY x 2 ORs PLANTAR [...] Within functional limits/Modified independence Treatment Plan Requires BUY BOAT OPERATOR Intervention: No Duration/Frequency of Treatment: no f/u [...] got pain pills this morning. Therapy Time BUY BOAT OPERATOR Individual Minutes Time In: 1052 Time Out: 1100 Minutes: 8 Signature: * Cristiano Agosto, [facility] - 04/10/2019 12:14 PM EST Clinical Pharmacy [...] Physical Therapy Med Surg Initial Assessment Facility/Department: [address] ORTHO TELE Room: W276/W276- NAME: Don Elkins : 1950 (68 y.o.) [...] region with radiculopathy 03/30/2019 Lumbar spondylosis 03/30/2019 [place]'s disease (HCC) 03/30/2019 Cancer (HCC) 03/30/2019 Restless [...] DECOMPRESSION performed by Reid Mejia MD at [facility] OR NOSE SURGERY x 2 ORs PLANTAR [...] Assistance: Independent(No AD) Transfer Assistance: Independent Active Coremaking Supervisor: Yes Occupation: Retired Additional Comments: Spouse is also limited by pain in her back; pt. at times has to help lift her.Has veterinary technician instructor occasionally. Spouse uses adaptive mobility equipment OBJECTIVE: [...] Goals: Patient goals : to get better watermelon inspector goals alf goal 1: indep with bed mobility utilizing log roll alf goal 2: pt to be indep with transfers alf goal 3: pt to ambulate >150 ft with no AD independently alf goal 4: pt to navigate 12 steps with 1 HR mod indep [facility] (6 CLICK) BASIC MOBILITY AM-PAC Inpatient Mobility Raw Score : 17 Therapy Time: Individual Time In 0941 Time Out 0955 Minutes 14 Cinthya Alcazar, PT, 04/09/19 at 10:42 AM * Ny Arana, OTR/L - 04/09/2019 10:15 AM EST KAE HOYT OCCUPATIONAL THERAPY EVALUATION - ACUTE NAME: Don Elkins : 1950 (68 y.o.) CODE STATUS: Full Code Room: [place] [address] Date of Service: 04/09/2019 Patient Diagnosis(es): Sepsis [...] DECOMPRESSION performed by Reid Mejia MD at [facility] OR NOSE SURGERY x 2 ORs PLANTAR [...] Assistance: Independent(No AD) Transfer Assistance: Independent Active Coremaking Supervisor: Yes Occupation: Retired Additional Comments: Spouse is also limited by pain in her back; pt. at times has to help lift her.Has veterinary technician instructor occasionally. Spouse uses adaptive mobility equipment OBJECTIVE: [...] from home with spouse who presents to [facility] with the above deficits which impact his [...] How much help for eating meals?: None [facility] Inpatient Daily Activity Raw Score: 21 AM-PAC [...] Time Out: 956 Minutes: 17 Other (specify): Hectoral, 17 minutes Electronically signed by: KENNEDY Barbosa/Atilio [...] +2 palpable, equal bilaterally Labs: Recent Labs 04/07/19 1830 04/07/19 2333 04/08/19 0324 WBC 11.9* -- 11.4* HGB 13.5* 11.2* 11.2* HCT 39.9* -- 34.0* PLT 178 -- 153 Recent Labs 04/07/19 1830 04/07/19 2333 04/08/19 0324 NA 128* -- 131* K 5.9* -- 4.8 CL 93* -- 99 CO2 23 -- 23 BUN 20 -- 18 CREATININE 1.97* 1.7* 1.77* CALCIUM 8.9 -- 8.0* Recent Labs 04/07/19 1830 04/08/19 0324 AST 27 17 ALT 41 28 BILIDIR 0.7* 0.6* BILITOT 2.7* 2.6* 2.0* ALKPHOS 52 42 Recent Labs 04/07/19 1830 04/08/19 0323 INR 1.2 1.2 Recent Labs 04/07/19 183 CKTOTAL 255* TROPONINI <0.010 Urinalysis: Lab Results [...] PT/OT Eval * Rene Nobles, [facility] - 04/08/2019 4:25 AM EST Pharmacy Note [...] at 122. Perfect serve sent to [facility] regarding home medications and a request for tele. Awaiting orders. 0415 pt vomited approx 200 ml. Perfect serve sent to [facility] to request nausea meds. Zofran cannot be given until 0700 0459 medicated pt for fever and nausea. Sent respiratory cx to lab. documented in this encounter* Vicki Singletary, HEALTH AND SAFETY TECH - IRON WORKER APPRENTICE - 03/30/2019 1:00 PM EST + Hibiclens wash neck to toes, front & back on Friday04/03/2019 & Friday04/04/2019. + Last dose Coumadin 03/30/2019 / per Dr. Arcos, grain cleaner and transfer operator thru [facility]. + Lovenox bridge to start 03/31/2019 as ordered thru [facility].On License Of [facility] ( [facility] ) phone # [phone]. + Chicken Hanger is Dr. Austen Arcos / phone # [phone] / [facility] / Last appt 11/2018/ paper copy of appt notes on chart. + Hx of brigida disease / sound effects supervisor Dr. Xavier Lake / Nupur / phone # [phone]. / paper copy of last appt notes dated 01/06/2019 on chart. documented in this encounter Assessments Diagnosis Post-op pain- Primary Other acute postoperative pain Diagnosis Abnormality of gait and mobility due to Impaired Mobility and ADL's due to Severe Lumbar Spinal Stenosis. [facility] Rehab admit 04/09/19.- Primary Abnormality of gait [...] hypertension Diagnosis SIRS (systemic inflammatory response syndrome) ([facility])- Primary Systemic inflammatory response syndrome, unspecified Dehydration TIFFANI (acute kidney injury) ([facility]) Acute kidney failure, unspecified Bronchitis Bronchitis, not specified as acute or chronic Elevated TSH Other abnormal blood chemistry Sepsis ([facility]) CKD (chronic kidney disease) Chronic kidney disease, unspecified Metabolic acidosis, normal anion gap (NAG) Acidosis Nausea and vomiting Nausea with vomiting Postoperative fever Postprocedural fever Elevated bilirubin Disorders of bilirubin excretion Type 2 diabetes mellitus with hyperglycemia, with long-term current use of insulin (HCC) 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 [facility] admit 04/09/19. Abnormality of gait CAD (coronary artery disease) Coronary atherosclerosis of unspecified type of vessel, [place] or graft HTN (hypertension) Unspecified essential hypertension [...] claudication Lumbar spondylosis Lumbosacral spondylosis without myelopathy Cincinnati's disease (HCC) Glucocorticoid deficiency Cancer (HCC) Other malignant neoplasm without specification of site Restless leg syndrome Restless legs syndrome (RLS) Former smoker, stopped smoking in distant past Personal history of tobacco use, presenting hazards to health Tremors of nervous system Abnormal involuntary movements Thyroid disease Unspecified disorder of thyroid Psoriasis Other psoriasis Hospital Course * RonnieEllie lazaro, - 04/13/2019 7:58 AM EST Subjective: The [...] overuseor abuse and follow-up frequently with his machine paint mixer. ROS x10: The patient also complains of [...] - Patient independently transfers Walk: 7- Complete [place] Walks at least 150 feet Independently with no assistive device Distance Walked: 300' Stairs: 6 - Modified [place] Safely goes up and down at least [...] (H) 60 - 115 mg/dl Performed on [employer] Mri Lumbar Spine 04/08/2019 1. Postcontrast enhancement [...] encouraged tocontinue to discuss discharge plans with caser shoe parts. Complex Physical Medicine & Rehab Issues Assess & Plan: 1. Severe abnormality of gait and mobility and impaired self-care and ADL's secondary to progressive severe spinal canal stenosis. Functional and medical status have improved [facility] therefore patient is scheduled for [...] therapy, Lidoderm, K-pad prn. I reviewed her [place] prescription monitoring service data sheetsin hopes of [...] episodic insomnia with situational adjustment disorder: prn Benitoien, monitor for day time sedation. 7. Falls risk elevated: patient to use call light to get nursing assistance to get up, bed and chair alarm. 8. Elevated DVT risk: progressive activities in PT, continue prophylaxis ELISABETH hose, elevation and patient is on prophylactic [...] the care of Dr. Reid Mejia at [facility] 04/05/2019. Patient is to transition slowly [...] incentive spirometry Ellie Juárez D.O., PM&R Attending [phone] [facility] documented in this encounter* Gerardo Fitzpatrick MD - 04/09/2019 12:01 PM EST Hospital Medicine Discharge Summary Don Elkins : 1950 Admit date: 04/07/2019 Discharge date: 04/09/2019 Admitting Physician: Gerardo Fitzpatrick MD Primary Care Physician: Sal Sabillon MD Discharge Diagnoses: Active Problems: Lumbar spondylosis Cincinnati's disease (HCC) Sepsis (HCC) CKD (chronic kidney [...] male that was admitted and treated at [facility] for the following medical issues: Active Problems: Lumbar spondylosis Cincinnati's disease (HCC) Sepsis (HCC) CKD (chronic kidney [...] by the following consultants while admitted to [facility]: Consults: IP CONSULT TO NEUROSURGERY IP CONSULT [...] Discharge Medications: Don Elkins Home Medication Instructions MARILUZ:[id number] Printed on:04/09/19 1201 Medication Information cephALEXin (KEFLEX) [...] tablet Take 1 tablet by mouth daily Bradley-3 Fatty Acids (FISH OIL) 600 MG CAPS [...] Take 5 mg by mouth daily Indications: V-MH-Dxw-Sun warfarin (COUMADIN) 7.5 MG tablet Take 7.5 mg by mouth daily Indications: M-W-F Disposition: If discharged to Home, Any [facility] needs that were indicated and/or required [...] documented in this encounter Reason for Referral SpecialtyDiagnoses / ProceduresReferred By ContactReferred To ContactRadiology Diagnoses Carotid stenosis, bilateral Stroke, lacunar (CMS/HCC) Cerebral artery occlusion with cerebral infarction (CMS/HCC) Procedures Vascular US carotid artery duplex bilateral Luh, Oscar Shrestha MD [address] [place] [address] [address] Referral IDStatusReasonStart DateExpiration DateVisits RequestedVisits [id number] Perform Procedure Chief Complaint and Reason for Visit Chief Complaint RENAL 6 month follow up Reason for Visit Brigida disease CKD (chronic kidney disease) stage 3, GFR 30-59 ml/min [id number] Hypomagnesemia Secondary 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 Chief Complaint RENAL 6 MONTH F/U Reason for Visit Brigida disease CKD (chronic kidney disease) stage 3, GFR 30-59 ml/min [id number] Hypomagnesemia Secondary 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 Chief Complaint RENAL 6 MONTH F/U WellnessReason for VisitAddison disease CKD (chronic kidney disease) stage 3, GFR 30-59 ml/min [id number] Hypomagnesemia Secondary 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 Screening PSA (prostate specific antigen) Chief Complaint Admit Date Wellness March 16, 2024 9 :38am CC Adult Risk Stratification February 11:10am Screening May 21, 2024 7: 33am Screening May 21, 2024 9: 01am Reason for Visit Admit Date Brgiida disease March 16, 2024 9 :38am Encounter for screening colonoscopy Octo 2023 9:38am Hypertensive chronic kidney disease with stage 1 through stage 4 chronic ki March 16, 2024 9:38am Medicare annual wellness visit, subseque nt March 16, 2024 9:38am AKAHS (obstructive sleep apnea) March 162023 9:38am Screening PSA (prostate specific antigen ) March 16, 2024 9:38am Chief Complaint Admit Date Wellness March 16, 2024 9 :38am CC Adult Risk Stratification February 11:10am Screening May 21, 2024 7: 33am Screening May 21, 2024 9: 01am Amb Documentation May 24, 2024 3: 46pm K62.5 June 01, 2024 1 1:32am Chief Complaint Admit Date K62.5 June 01, 2024 1 1:32am RENAL 6 MONTH F/U 2024 8:3 5am Reason for Visit Admit Date Cincinnati disease 2024 8:3 5am CKD (chronic kidney disease) stage 3, GF R 30-59 ml/min 2024 8:35am Hypertensive chronic kidney disease with stage 1 through stage 4 chronic ki 2024 8:35am Hypomagnesemia 2024 8:3 5am Secondary hyperparathyroidism August 8:35am Type 2 diabetes mellitus with diabetic c hronic kidney disease 2024 8:35am Additional Source Comments (unrecognized sect ion and content) No Status Records FoundNo Status Records FoundNo Status Records FoundNo Status Records FoundNo Status Records FoundNo Status Records FoundNo Status Records FoundNo Status Records FoundNo Status Records FoundNo Status Records FoundNo Status Records Found INFORMATION SOURCE (unrecogn ized section and content) DATE CREATED AUTHOR 04/25/2018 [facility] DATE CREATED AUTHOR AUTHOR'S ORGANIZ ATION 05/02/2018 [facility] DATE CREATED AUTHOR AUTHOR'S ORGANIZ ATION 2018 [facility] DATE CREATED AUTHOR AUTHOR'S ORGANIZ ATION 04/13/2019 [facility] DATE CREATED AUTHOR AUTHOR'S ORGANIZ ATION 02/13/2021 [facility] DATE CREATED AUTHOR AUTHOR'S ORGANIZ ATION 05/05/2021 [facility] DATE CREATED AUTHOR AUTHOR'S ORGANIZ ATION 05/21/2021 [facility] DATE CREATED AUTHOR AUTHOR'S ORGANIZ ATION 06/17/2022 [facility] DATE CREATED AUTHOR AUTHOR'S ORGANIZ ATION 06/04/2024 [facility] DATE CREATED AUTHOR AUTHOR'S ORGANIZ ATION 07/18/2024 [facility] DATE CREATED AUTHOR AUTHOR'S ORGANIZ ATION 12/24/2024 [facility] EPIC Reason for Visit (unrecogniz ed section and content) StatusReasonSpecialtyDiagnoses / ProceduresReferred By ContactReferred To Contact Diagnoses SPINAL STENOSIS,, RADICULOPATHY, SPONDYLOSIS Procedures [place] LAMNOTMY W/DCMPRSN NRV EACH ADDL CRVCL/LMBR L 3, L 4 LUMBAR DECOMPRESSION, 1 HOUR/ 1 C-ARM Reid Mejia MD [address], [address] [place] [address] [facility] [employer] ReasonCommentsPost-op ProblemHad surgery friday on low back. Pt has intermittent fever, vomiting and redness around the incisionStatusReasonSpecialtyDiagnoses / ProceduresReferred By ContactReferred To Contact Diagnoses Sepsis (H[place]) [place] [address] [address] [facility] [address] [place] [address] [facility] ReasonCommentsParkinson's DiseaseReasonCommentsDiabetesFollow-upReasonComments Parkinson's Disease Care Teams (unrecognized sec tion [...] Active Start: May 13, 2024 Kristen Hager MDAttending ProviderActiveStart: May 13, 2024 Team Status: Active Member Role Status Dates Sal Sabillon MD Primary Care Provider Active Start: May 14, 2024 Shaikh Merrill MDAttending ProviderActiveStart: May 14, 2024 Team Status: Active Member Role Status Dates Sal Sabillon MD Primary Care Provider Active Start: May 15, 2024 Shaikh Merrill MDAttending ProviderActiveStart: May 15, 2024 Team Status: Inactive Member Role Status Dates Sal Sabillon MD Primary Care Provider Active Start: May 21, 2024 End: May 21atherine L Ly , DOAttending ProviderActiveStart: May 21, 2024 End: May 21, 2024 Team Status: Active Member Role Status Dates Sal Sabillon MD Primary Care Provider Active Start: May 21, 2024 Jeannie L Ly , DOAttending Provider, Other ProviderActiveStart: May 21, 2024 Team MemberRelationshipSpecialtyStart DateEnd Date Sal Sabillon MD [address] [place] [address] PCP - [facility]10/08/22Team MemberRelationshipSpecialtyStart DateEnd Date Sal Sabillon MD [address] [place] [address] PCP - [facility]10/08/22 Team Status: Active Member Role Status Dates Sal Sabillon MD Primary Care Provide r, Attending Provider Active Start: August 05, 2023 Team Status: Inactive Member Role Status Dates aSl Sabillon MD Primary Care Provider Active Start: August 14, 2023 End: August 13regan Galarza MDAttending ProviderActiveStart: August 14, 2023 End: August 14, 2023 Team Status: Active Member Role Status Dates Sal Sabillon MD Primary Care Provider Active Start: January 22, 2024 Frank Awanending ProviderActiveStart: January 22, 2024 Team Status: Inactive Member Role Status Dates Sal Sabillon MD Primary Care Provider Active Start: January 29, 2024 End: January 28regan Galarza MDAttending ProviderActiveStart: January 29, 2024 End: January 29, 2024Team MemberRelationshipSpecialtyStart DateEnd Date Sal Sabillon MD [facility]/08/22Team MemberRelationshipSpecialtyStart DateEnd Date Sal Sabillon MD [address] [place] [facility] [place] [phone] PCP - [facility]05/05/24Team MemberRelationshipSpecialtyStart Date End Date Sal Sabillon MD [address] [place] [facility] [place] [address] PCP - [facility]05/05/24Team MemberRelationshipSpecialtyStart Date End Date Sal Sabillon MD [address] [place] [facility] [place] [address] PCP - [facility]05/05/24 Team Status: Active Member Role Status Dates Sal Sabillon MD Primary Care Provider Active Start: May 24, 2024 SHANTEL ChaoAAtcecily ProviderActiveStart: May 24, 2024 Team Status: Inactive Member Role Status Dates Sal Sabillon MD Primary Care Provider Active Start: June 01, 2024 End: June 01Alexandra Luz ProviderActiveStart: June 01, 2024 End: June 01, 2024 Team Status: Active Member Role Status Dates Sal Sabillon MD Primary Care Provider Active Start: August 17, 2024 Alexandra Awan ProviderActiveStart: August 17, 2024 Team Status: Inactive Member Role Status Dates Sal Sabillon MD Primary Care Provider Active Start: 2024 End: August 26bdAlexandra Dorsey ProviderActiveStart: 2024 End: August 26, 2024Team MemberRelationshipSpecialtyStart DateEnd Date Sal Sabillon MD [address] [place] [facility] [place] [phone] PCP - [facility]09/08/24Team MemberRelationshipSpecialtyStart DateEnd Date Sal Sabillon MD [address] [place] [facility] [place] [address] PCP - GeneralFamily Medicine09/08/24Team MemberRelationshipSpecialtyStart DateEnd Date Sal Sabillon MD [address] [place] [facility] [place] [address] PCP - GeneralFamily Medicine09/08/24Team MemberRelationshipSpecialtyStart DateEnd Date Sal Sabillon MD [address] [place] [facility] [place] [address] PCP - GeneralFamily Medicine09/08/24 Goals (unrecognized section and content) Goals may [...] BE BASED ON THE PRIMARY CLINICAL RECORDS. [facility] [employer] [facility]. provides no warranty or guarantee of the accuracy or completeness of information in this document.
[2025-03-14 09:04] LABS: Hematocrit 46.8 % (42.0-54.0); Hemoglobin 15.8 g/dL (14.0-18.0); Mean Corpuscular HGB Conc 33.8 g/dL (29.9-35.2); Mean Corpuscular Hemoglobin 32.2 pg (25.9-34.0); Mean Corpuscular Volume 95.3 fL (80.0-94.0); Platelet Count 221 10^3/uL (150-450); Red Blood Count 4.91 10^6/uL (4.70-6.10); White Blood Count 9.9 10^3/uL (4.0-11.0)
[2025-03-14 09:06] LABS: Protein Creatinine Ratio Urine 0.08; Total Protein Urine Random 11.4 mg/dL (<=11.9)
[2025-03-14 09:18] LABS: Glucose Urine UA NEGATIVE (NEGATIVE)
[2025-03-14 09:29] LABS: Albumin Level 3.6 g/dL (3.4-5.0); Anion Gap 9.9; Blood Urea Nitrogen 21.0 mg/dL (7.0-18.0); Calcium 8.6 mg/dL (8.5-10.1); Carbon Dioxide 33.8 mmol/L (21.0-32.0); Chloride 95 mmol/L (98-107); Estimated GFR (African America 48 (>=60 mL/min/1.73m^2); Estimated GFR (Non-African Ame 39 (>=60 mL/min/1.73m^2); Glucose 309 mg/dL (74-106); Magnesium 2.1 mg/dL (1.8-2.4); Potassium 4.7 mmol/L (3.5-5.1); Sodium 134 mmol/L (136-145); Uric Acid 5.7 mg/dL (3.5-7.2)
[2025-03-14 09:34] LABS: Cast Seen? NONE SEEN #/LPF (NONE SEEN); Crystals Seen? None Seen #/HPF (None Seen)
== END 2025-03-14 08:20 | disposition home or self-care (01) ==
LOC: LAB 08:25
PROVIDERS: PCP Family Medicine; Visit Provider Internal Medicine
DX: E83.42 Hypomagnesemia (principal); N25.81 Secondary hyperparathyroidism of renal origin; I12.9 Hypertensive chronic kidney disease with stage 1 through stage 4 chronic kidney disease, or unspecified chronic kidney disease; E11.22 Type 2 diabetes mellitus with diabetic chronic kidney disease; N18.30 Chronic kidney disease, stage 3 unspecified; E27.1 Primary adrenocortical insufficiency
CPT/HCPCS: 36415; 80069; 81001; 82306; 82570; 83735; 83970; 84156; 84550; 85027

== ENCOUNTER 2025-03-28 13:52 | Outpatient (OUT) | payer MEDICARE, SELFPAY ==
--- OUTSIDE RECORDS SUMMARY | 2025-03-24 10:52 | XMS_ITS | Continuity of Care Document ---
Author Organization [facility] Address [address] [place] [address] Phone Care Team Providers Care Fire Officer Name Role Phone Janette Molina MD Primary Care Provider Valentín Galarza Attending Provider [phone] Janette Molina MD Attending Provider [phone] Care Teams Patient Care Team Team Status: Active Member Role/Relationship Status Dates Janette Molina MD Primary Care Provider Active Visit Care Team Team Status: Active Member Role/Relationship Status Dates Janette Molina MD Primary Care Provider Active Start: March 14, 2025 Alexandra Awan ProviderActiveStart: March 14, 2025 Visit Care Team Team Status: Inactive Member Role/Relationship Status Dates Janette Molina MD Primary Care Provider Active Start: March 18, 2025 End: March 18, 2025Alexandra Perales ProviderActiveStart: March 18, 2025 End: March 18, 2025 Patient Care Team Team Status: Inactive Member Role/Relationship Status Dates Janette Molina MD Primary Care Provider Active Start: March 24, 2025 End: March 24Alexandra De Anda ProviderActiveStart: March 24, 2025 End: March 24, 2025 Chief Complaint and Reason for Visit Chief Complaint Admit Date Wellness March 18, 2025 9 :53am RENAL 6 MONTH F/U March 24, 2025 3 :07pm Reason for Visit Admit Date Kris disease March 18, 2025 9 :53am Heart murmur March 18, 2025 9 :53am Hypertensive chronic kidney disease with stage 1 through stage 4 chronic ki March 18, 2025 9:53am Medicare annual wellness visit, gregory nt March 18, 2025 9:53am AKASH (obstructive sleep apnea) March 182024 9:53am CKD (chronic kidney disease) stage 3, GF R 30-59 ml/min March 24, 2025 3:07pm Hypertensive chronic kidney disease with stage 1 through stage 4 chronic ki March 24, 2025 3:07pm Hypomagnesemia March 24, 2025 3 :07pm Secondary hyperparathyroidism March 242024 3:07pm Type 2 diabetes mellitus wit h diabetic chronic kidney disease March 24, 2025 3:07pm Allergies, Adverse Reactions, Alerts Allergen Type Severity Reaction Last Updated Verified Status No Known Allergies Allergy Unknown March 24, 2025 3:11pmYesActive Social History Smoking Status Status Start Date End Date Date of Observa tion Ex-smoker (finding) March 24, 2025 3:13pm Observation Status Observation Response Date of Response Legal Sex [facility] ([facility]) [facility] Family History Relationship Condition Age at Onset Recorded Date/T danny brother Hypertension Unknown Diabetes mellitusUnknownDeceasedUnknownMalignant neoplasmUnknownfatherHistory of strokeUnknownDeceasedUnknownmotherDiabetes mellitusUnknownDeceasedUnknownHeart diseaseUnknownMalignant neoplasmUnknownHypertensionUnknownsisterDiabetes mellitusUnknownHypertensionUnknown Problems Active Problems Problem Diagnosis/Recorded Date Onset Date Stat TIFFANI (acute kidney injury) September 14, 2020 5:51pm Unkn own Active Medicare annual wellness vis it, subsequent March 23, 2024 4:16pm Unknown Active Screening PSA (prostate spec ific antigen) March 16, 2024 9:14am Unknown Active AKASH (obstructive sleep apnea) March 23, 2024 4:16p m Unknown Active Type 2 diabetes mellitus wit h diabetic chronic kidney disease August 14, 2023 12:49pm Unknown Active Troponin I above reference range March 15, 2018 12 :54pm Unknown Active Secondary hyperparathyroidism August 14, 2023 12:49pm Unknown Active CKD (chronic kidney disease) stage 3, GFR 30-59 ml/min August 14, 2023 12:49pm Unknown Active 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, 2020 5:11pm Unknown A ctive Elevated LFTs September 11, 2020 6:46pm Unknown Act dk Hypertensive chronic kidney disease with stage 1 through stage 4 chronic kidney disease, or unspecified chronic kidney disease August 14, 2023 12:49pm Unknown Active Diarrhea September 14, 2020 5:35pm Unknown Acti ve Heart murmur March 18, 2025 9:32am Unknown Ac tive Restless leg syndrome September 11, 2020 5:22pm Unknown Active Rectal bleeding May 31, 2024 4:12pm Unknown Active Pulmonary embolism March 15, 2018 12:54pm Unknown Active Nausea & vomiting September 11, 2020 6:46pm Unknown Active Abdominal pain September 14, 2020 5:35pm Unknown Ac tive HTN (hypertension) September 11, 2020 5:21pm Unknown Active Parkinson disease September 11, 2020 5:23pm Unknown Active Vomiting September 14, 2020 5:35pm Unknown Acti ve Encounter for screening colonoscopy March 23, 2024 4:15pm Unknown Active Dehydration September 15, 2020 12:26pm Unknown Act dk Hypomagnesemia August 14, 2023 12:49pm Unknown A ctive Medications Medication Status Dose Units Route Directions Qty Days Refills S tart Date Stop Date End Date Reason(s) Instructions Adherence Hydrocortisone Acetate (Anusol-Hc) 25 mg suppository Discontinued 25 MG WA Daily 7 7 0 May 31, 2024 12:00am March 18, 2025 9:08amMetformin 500 mg qrtefnTrmgvcisznuh576RIPOBkuvcRruevpw 2017 11:00pm[place] 2023 12:36pmLisinopril 20 mg jggzddSrpiqsnjrrxo70 MGPODailyA[facility] 2017 11:00pm[place] 2023 12:36pmCitalopram 20 mg hcvebxKbsxcqyicdqd35PYEHUdfcdXqwlniz 2017 11:00pm[place] 2023 12:36pm Simvastatin 20 mg dyznwrCvbggoliycmn13BUTMGkokuLtnbjso 2017 11:00pm[facility] 2017 12:09pmLevothyroxine 150 mcg bvvbpjZgsdixftdsjy775AMHSNFzjjzZplpfso 2017 11:00pm[place] 2023 12:36pmFludrocortisone 0.1 mg tablet Discontinued0.1MGPOevery other dayApex Medical Center 2017 11:00pm[place] 2023 12:37pmMultivitamin (Multiple Vitamins) FkkbarCjoxvxhgnieu7WHDBXIztbyJaskhqa 2017 11:00pm[place] 2023 12:35pmAspirin (Roly Low Dose Aspirin) 81 mg Tablet,Delayed Release (Dr/Ec)Zxaldqogzxjg34DZJYNeqmfUbrzava 2017 11:00pm September 11, 2020 5:25pmIbuprofen 600 mg WuryxjWmhhltdgpbfn152EZXMCjpgm daily March 14, 2018 11:00pm[facility] 2017 12:09pmCoenzyme Q10 (Co Q-10) 100 mg FgubploWibxvdqakkng904HFVPYjycbMgkwuab 2017 11:00pm[facility] 2017 12:09pmOmega-3 Fatty Acids-Fish Oil (Fish Oil) 300-1,000 mg CapsuleDiscontinued1 CAPPODailyApex Medical Center 2017 11:00pm[facility] 2017 12:09pmCalcium Carbonate- Vitamin D3 (Calcium 500 + D (D3)) 500 mg(1,250mg) -125 unit TabletDiscontinued1 TABPOTwice dailyApex Medical Center 2017 11:00pm[facility] 2017 10:48amRopinirole 8 mg Tablet Extended Release 24 CmRwvbxqngofih7KJKEYntxzCddiryx 2017 11:00pm September 11, 2020 5:29pmOmeprazole 40 mg Capsule,Delayed Release(Dr/Ec) Xrkjmrijmdcp00KVZKCszonEruukaw 2017 11:00pmApril 2020 5:29pm Hydrocortisone 20 mg XfrysySatcrqohqyia70EVBAKifoj dailyApex Medical Center 2017 11:00pm[place] 2023 12:36pmCalcium Carbonate-Vitamin D3 (Calcium 600 + D(3)) 600 mg calcium- 200 unit JzrwnmwSrxdpiygqvzt6FFNQPHftgcCcvdzae 2017 11:00pmApril 2020 5:33pmAtorvastatin 80 mg UmzeafGiudbmjlutrx38GRDRJniof at mxmfgrg91Rpirvyi 2017 11:00pmMar 2023 12:36pmAspirin 81 mg Tablet,Delayed Release (Dr/Ec)Czorpepdairn47CCBLIcuxy73Bamgwgz 2017 11:00pmApril 2020 5:25pmTizanidine 4 mg bidmdvOdzvsupnpgqb6CYIFWkmlv daily September 10, 2020 11:00pmMar 2023 12:35pmDonepezil 10 mg tablet Oydnskvgmqru44NOQHAcpgeMrxic 2020 11:00pmApril 2020 8:22pmGabapentin 800 mg cdpfwvQmiysbspkopy983EYCMNrymkbwWlezn 2020 11:00pm[place] 2023 12:36pmCarbidopa-Levodopa 25-100 mg gyovkcGywtnrgajidb49 - 100TABPOTwice daily September 10, 2020 11:00pmApril 2020 8:22pmWarfarin 3 mg TabletDiscontinued9 MGPODailyApril 2020 11:00pm[place] 2023 12:35pmSUNDAYS ONLYWarfarin 6 mg GqssxwUfoojeabkmxc4ZUQQ9 TIMES PER WEEKApril 2020 11:00pm[place] 2023 12:35pmMetoprolol Tartrate 25 mg RfkjpxCkqkmzorbmvr71HCWZKttcl dailyApril 2020 11:00pm[place] 2023 12:36pmOndansetron 4 mg tablet,disintegrating Kyrlgyjendnj0VMFQR2N as needed for nausea and ppjvksqr477Cvrai 2020 11:00pmApril 2020 8:22pmLisinopril 5 mg ydtvwaFpjauo5CQYWBobgrQsflb 2023 11:00pmComplies with drug therapyLevothyroxine 150 mcg tabletDiscontinued 150MCGPODailyCent[place] 2023 11:00pmSeptember 2023 2:07pmHydrocortisone 20 mg rluvevAfmavy93NFPSTpvmd morningCenterville 2023 11:00pmComplies with drug therapyHydrocortisone 10 mg rqrxbiVnlvjs63ZDZNFrkrg at bedtimeCenterville 2023 11:00pmComplies with drug therapyFludrocortisone 0.1 mg tabletActive0.1MGPO4 times per weekMar 2023 11:00pmComplies with drug therapyCitalopram 20 mg kkxdjnKkanlz73WRXWZnxihXmyfd 2023 11:00pmComplies with drug therapy Multivitamin rsjpvgCfxezi3CCNKBGvqnmBktkn 2023 11:00pmComplies with drug therapySemaglutide (Ozempic) 0.25 mg or 0.5 mg (2 mg/3 mL) pen injector DiscontinuedMGSUBCUTAs DirectedCenterville 2023 11:00pmDeceer 2023 8:20amFreeTextSig: as directed Subcutaneous; Note: Source Status: Taking; Provider: Jesse Savage ( )Coenzyme Q10 100 mg vqgfjvhSiebvm704WY PODailyMarch 2023 11:00pmComplies with drug therapyMetoprolol Tartrate 75 mg vweranOaqionqeqecm94NJTXGropi dailyCent[place] 2023 11:00pmSeptember 2023 2:09pmMemantine 10 mg ifqvyzQgdjcn51WOSXOwomeJmnid 2023 11:00pm Complies with drug therapyAspirin 81 mg tablet,ppejegehDengrr44COBPHazwvCgtld 2023 11:00pmComplies with drug therapyGabapentin 600 mg tabletDiscontinued 600MGPOTwice dailyCent[place] 2023 11:00pmSeptember 2023 2:08pm Atorvastatin 40 mg xnvascJsmxbx46MCLUEskacLceha 2023 11:00pmComplies with drug therapyMagnesium Oxide 400 mg (241.3 mg magnesium) fmrpydJhoppoqbfzfj426LY POEvery 48 hoursCent[place] 2023 11:00pmApril 2024 8:23amLevothyroxine 100 mcg cvggakEdhvzn503RDFZVQqhnyWlphhtfvb 2023 11:00pmComplies with drug therapyGabapentin 800 mg oayqlrIygptg275HVLFBdrxz dailySeptember 2023 11:00pmComplies with drug therapyMetoprolol Tartrate 100 mg cabeyhGaikii834QTUR Twice dailySeptember 2023 11:00pmComplies with drug therapyMagnesium Oxide 400 mg (241.3 mg magnesium) irezzbFgphkc002QUJIPiakjHmzpa 2024 8:23am Complies with drug therapySemaglutide (Ozempic) 1 mg/dose (4 mg/3 mL) pen fmnpbpodNjafgc4VAGPDAAGpoyxr weekApril 2024 11:00pmComplies with drug therapyDonepezil 10 mg lixxcaPhlqtb71FTHXXuqorPvceuycp 2024 12:00amComplies with drug therapy Immunizations Immunization Event Date Not Given Reason Dose Number Type Inspector Lot Number Reason(s) Given Vaccine Information Statement (VIS) Detail Administration Location COVID-19 mRNA, [employer] ([employer]) July 22 COVID-19 mRNA, [employer] ([employer])August 05, 2020Fluzone TIV High-Dose 65YR+ March 18, [id number] [facility], unspecified formulationOctober 2022 Relevant Diagnostic Tests and/or Laboratory Data Laboratory Results Test Collection Date/Time Result Date/Time Result Interpretation Reference Range Result Comment Performing Site Urine Other Casts March 14, 2025 7:29am NONE SEEN #/LPFNONE SEENUrine Random CreatinineOctober 2024 7:29amOctober 2024 7:31xd446.33 mg/dL20.00-300.00Parathyroid Hormone (Intact)March 14, 2025 7:51amOctober 2024 7:51am54 pg/gJ04-25Pgtfprbyj at: - [facility] [id number] Director: Prakash Barbour PhD, Phone: [phone]-Xunitly Vitamin D TotalOctober 2024 7:51amOctober 2024 7:51am70.2 ng/mL<20 ng/mL Vit D evhfcdmkx17-<30 ng/mL Vit D kunosxwzggte02-262 ng/mL Vit D sufficient>100 ng/mL Potential Toxicity Magnesium LevelOctober 2024 7:51amOctober 2024 7:51am2.1 mg/dL 1.8-2.4Uric AcidOctober 2024 7:51amOctober 2024 7:51am5.7 mg/dL 3.5-7.2Anion GapOct2024 7:51amOctober 2024 7:51am9.9Hematocrit March 14, 2025 7:51amOctober 2024 7:51am46.8 %42.0-54.0Urine Other CrystalsOctober 2024 7:29amNone Seen #/HPFNone SeenUrine Protein/Creatinine RatioOctober 2024 7:29amOct2024 7:29am0.08 AlbuminOct2024 7:51amOctober 2024 7:51am3.6 g/dL3.4-5.0 HemoglobinOctober 2024 7:51amOctober 2024 7:51am15.8 g/dL14.0-18.0 Urine BacteriaOctober 2024 7:29amNONE SEEN #/HPFNONE SEENUrine Random Total ProteinOctober 2024 7:29amOct2024 7:29am11.4 mg/dL<=11.9 BUN/Creatinine RatioOctober 2024 7:51amOctober 2024 7:51am12.3Mean Corpuscular HemoglobinOctober 2024 7:51amOct2024 7:51am32.2 pg 25.9-34.0Urine BilirubinOctober 2024 7:29amNEGATIVENEGATIVEBlood Urea NitrogenOctober 2024 7:51amOct2024 7:51am21.0 mg/dLAbove high normal7.0-18.0Mean Corpuscular Hemoglobin ConcentOctober 2024 7:51am March 14, 2025 7:51am33.8 g/dL29.9-35.2Urine Occult BloodOctober 2024 7:29amNEGATIVENEGATIVECalcium LevelOctober 2024 7:51amOctober 2024 7:51am8.6 mg/dL8.5-10.1Mean Corpuscular VolumeOctober 2024 7:51amOctober 2024 7:51am95.3 fLAbove high oycjtr17.0-94.0Urine AppearanceOct2024 7:29amCLEARCLEARChloride LevelOctober 2024 7:51amOctober 2024 7:51am95 mmol/LBelow low btvoxu38-348Tdwo Platelet VolumeOctober 2024 7:51amOctober 2024 7:51am12.4 fL9.5-13.5Urine ColorOctober 2024 7:29amYELLOWYELLOWCarbon Dioxide LevelOctober 2024 7:51amOctober 2024 7:51am33.8 mmol/LAbove high juccpi24.0-32.0Platelet CountOctober 2024 7:51amOct2024 7:49uv596 10 3/iD298-211Ohedc Glucose (UA)March 14, 2025 7:29amNEGATIVE mg/dLNEGATIVECreatinineOctober 2024 7:51amOctober 2024 7:51am1.71 mg/dLAbove high normal0.70-1.30Red Blood CountOctober 2024 7:51amOctober 2024 7:51am4.91 10 6/uL4.70-6.10Urine Ketones March 14, 2025 7:29amNEGATIVE mg/dLNEGATIVEEstimated GFR () March 14, 2025 7:51amMarch 14, 2025 7:82fa81Ibzxy low normal>=60 mL/min/1.73m 2Red Cell Distribution WidthOct2024 7:51amOct2024 7:51am12.1 %11.0-15.0Urine Leukocyte EsteraseOct2024 7:29am NEGATIVENEGATIVEEstimated GFR (Non- AmericanOctober 2024 7:51am March 14, 2025 7:37qb70Lllbb low normal>=60 mL/min/1.73m 2Corrected White Blood CountOctober 2024 7:51amOctober 2024 7:51am9.9 10 3/uL4.0-11.0 Urine MucusOctober 2024 7:29amNONE SEENNONE SEENGlucose LevelOctober 2024 7:51amOctober 2024 7:79yh080 mg/dLAbove high yyyshe07-246Euozb NitriteOctober 2024 7:29amNEGATIVENEGATIVEPotassium LevelOctober 2024 7:51amOctober 2024 7:51am4.7 mmol/L3.5-5.1Urine pHOctober 2024 7:29am6.05.0-9.0Sodium LevelOctober 2024 7:51amOctober 2024 7:51am 134 mmol/LBelow low esupae512-934Vzbgg ProteinOctober 2024 7:29amNEGATIVE mg/dLNEG/TRACEPhosphorus LevelOctober 2024 7:51amOctober 2024 7:51am 3.5 mg/dL2.6-4.7Urine RBCOctober 2024 7:29amNONE SEEN #/HPF0-2Urine Specific GravityOctober 2024 7:29am1.0201.005-1.025Urine Squamous Epithelial CellsOctober 2024 7:29amRARE #/LPFNONE/RAREUrine Urobilinogen March 14, 2025 7:29am0.2 EU/dL0.2-1.0Urine WBCOctober 2024 7:63qu0-1 #/HPFAbnormal (applies to non-numeric results)NONE SEEN Vital Signs Vital Reading Result Reference Range Collection Date/Time Height 66 [in_i] March 18, 2025 9:61uyZnsmme803.15 kgOctober 2024 9:04amHeart Rate66 /uhc28-151Ryxjqki 2024 9:04amBP Jizrmggo324 mm[Hg]100-140October 2024 9:04amBP Nkzyyfrgo18 mm[Hg]60-100October 2024 9:04amBMI (Body Mass Index)35.9 kg/a1Bflqmyt 2024 9:43meNkpbdu05 [in_i]March 24, 2025 3:47eiDmfybi340.47 kgNov2024 3:10pmBody Oocpyilabuo22.3 [degF] 97.6-99.0Nov2024 3:10pmHeart Rate68 /uuc10-415CorunobcMarch 24, 2025 3:10pmRespiratory rate18 /zhq84-12FjuokkijMarch 24, 2025 3:10pmOxygen saturation by Pulse khhtmqvo28 %95-100March 24, 2025 3:10pmBP Fmoeuvub495 mm[Hg]100-140 March 24, 2025 3:10pmBP Htbpdfrbk17 mm[Hg]60-100Nov2024 3:10pmBMI (Body Mass Index)35.7 kg/e1XgcswxzsMarch 24, 2025 3:10pm Advance Directives Advance Directive Response Recorded Date/ Time Advance Directives No January 07, 2018 8:40am Insurance Providers Guarantor Henrietta Pleitez Address [address] [place] [address]Enoktrh Info.Home Phone: Coverage Status Update:2024 Payer Group Member ID Coverage Type Subscriber Relationship to Subscriber Effective Date Expiration Date Medicare [id number] Dick , D Id: [id number] [address] [place] [address] Home Phone: Email: [email or web address] Encounters Encounter Location(s) Arrival/Admit Date Discharge/Departure Date Discharge/Departure Disposition Provider(s) Non-patient / Non-visit -[facility] O ctober 2024 8:51am STEPHAN Awaneparted Physician/Provider Office Visit-[facility] March 18, 2025 9:53amOctober 2024 10:37amDischarged to home care or self care (routine discharge)STEPHAN Peraleseparted Physician/Provider Office Visit-[facility] Nephrology [place]November 2024 3:07pmNov2024 3:51pmDischarged to home care or self care (routine discharge)Frederick Galarza MD Recent Diagnosis Onset Date Admit Date Charlotte disease Unknown March 18 9:53am Heart murmur Unknown March 18 9:53am Hypertensive chronic kidney disease with stage 1 through stage 4 chronic ki Unknown March 18, 2025 9:53am Medicare annual wellness visit, subsequent Unkno wn March 18, 2025 9:53am AKASH (obstructive sleep apnea) Unknown Oc tober 2024 9:53am CKD (chronic kidney disease) stage 3, GFR 30-59 ml/min Unknown March 24, 2025 3:07pm Hypertensive chronic kidney disease with stage 1 through stage 4 chronic ki Unknown March 24, 2025 3:07pm Hypomagnesemia Unknown March 24 3:07pm Secondary hyperparathyroidism Unknown No vember 2024 3:07pm Type 2 diabetes mellitus wit h diabetic chronic kidney disease Unknown March 24, 2025 3:07pm Assessments Diagnosis Onset Date Resolution Status Admit Date Kris disease acuteOctober 2024 9:53amHeart murmuracuteOctober 2024 9:53am Hypertensive chronic kidney disease with stage 1 through stage 4 chronic kiacute March 18, 2025 9:53amMedicare annual wellness visit, subsequentacuteOctober 2024 9:53amOSA (obstructive sleep apnea)acuteOctober 2024 9:53amCKD (chronic kidney disease) stage 3, GFR 30-59 ml/minacuteNov2024 3:07pm Hypertensive chronic kidney disease with stage 1 through stage 4 chronic kiacute March 24, 2025 3:07pmHypomagnesemiaacuteNov2024 3:07pmSecondary hyperparathyroidismacuteMarch 24, 2025 3:07pmType 2 diabetes mellitus with diabetic chronic kidney diseaseacuteMarch 24, 2025 3:07pm Plan of Treatment [facility] Personalized health advice was given to the beneficiary to health education of preventative counseling services or programs aimed at reducing identified risk factors and improving self-management or community-based lifestyle interventions to reduce health risks and promote self-management and wellness, including physical activity and nutrition. Will check w [facility] on why he doesn't have the bipap. states Dr Arvizu is ordering it. Followup w Dr. Galarza as scheduled Followup w Dr Estrada as scheduled. Future Tests Future scheduled test information is unavailable Pending Tests Test Name Ordered Date Scheduled Date Renal Function Panel March 24, 2025 3:44pm 6 Months E[facility] echo transthoracic March 18, 2025 9:32am Future Visits Future appointment information is unavailable Future Procedures Procedure Name Ordered Date Scheduled Date Dipstick and Microscopic March 24, 2025 3:44 pm 6 Months Hemogram CBC Without Diff March 24, 2025 3:4 4pm 6 Months Magnesium March 24, 2025 3:44pm 6 Aj hs Protein Creat Ratio Ur Random March 24, 2025 3:44pm 6 Months Parathyroid Hormone Intact March 24, 2025 3: 44pm 6 Months Uric Acid March 24, 2025 3:44pm 6 Aj hs Vitamin D 25 Hydroxy Total March 24, 2025 3: 44pm 6 Months Future Medications Future medication information is unavailable Patient Instructions Patient instructions are unavailable
--- OUTSIDE RECORDS SUMMARY | 2025-03-28 13:54 | XMS_ITS | Clinical Summary ---
Author Organization [facility] Address [address] [place] [address] Phone Care Team Providers Care Line Assembler Aircraft Name Role Phone Unavailable Primary Care Provider Unavailabl e Social History Tobacco UseTypesPacks/DayYears UsedDateSmoking Tobacco: Never AssessedSex and Gender InformationValueDate RecordedSex Assigned at BirthNot on fileLegal Sex Male04/12/2022 5:22 PM ESTGender IdentityNot on fileSexual OrientationNot on file Plan of Treatment Not on file Medical Devices ImplantedTypeAreaManufacturerDevice IdentifierShelf Expiration DateModel / Serial / LotLead, Pacing, Ventricular, Temporary, Unipolar, Standard Case [id number] Implanted:Qty: 1 on 03/31/2018 by Jc Gaston MDCardiac Pacemaker [id number] / [id number] / Description:Converted from [facility] Acute. Please see archived information for full log information. Advance Directives For more information, please contact: [phone] (Available ) TypeDate RecordedPatient RepresentativeExplanationAdvance Directives and Living Will04/15/2018Healthcare Power of Atty106/08/2017Living Will04/08/2018
--- OUTSIDE RECORDS SUMMARY | 2025-03-28 13:54 | XMS_ITS | Clinical Summary ---
Author Organization [facility] Address [address] [place] [address] Care Team Providers Care Manager Semiconductor Name Role Phone Austen Hansen DO Primary Care Provider [phone] Allergies No known active allergies Medications MedicationSigDispense QuantityRefillsLast FilledStart DateEnd DateStatus metFORMIN 500 mg tablet Take 500 mg by mouth twice daily with meals.Active lisinopril 10 mg tablet Take 10 mg by mouth once daily.Active simvastatin 20 mg tablet Take 20 mg by mouth daily at bedtime.Active hydrocortisone 10 mg tablet Take 20 mg by mouth once daily.Active fludrocortisone 0.1 mg tablet Take 0.1 mg by mouth once daily.Active Aspirin 81 mg tab Take 81 mg by mouth.Active Cholecalciferol, Vitamin D3, (VITAMIN D) 1,000 unit cap Take 1,000 Units by mouth once daily.Active multivitamin tablet Take 1 tablet by mouth once daily.Active Omeprazole 40 mg capsule Take 40 mg by mouth once daily.Active meloxicam 15 mg tablet Take 15 mg by mouth once daily.Active coenzyme Q10 (COQ-10) 100 mg cap Take 100 mg by mouth once daily.Active CALCIUM CARBONATE/VITAMIN D3 (CALCIUM 500 + D, D3, ORAL) Take by mouth once daily.Active DOCOSAHEXANOIC ACID/EPA (FISH OIL ORAL) Take by mouth once daily.Active pramipexole 0.5 mg tablet Take 0.5 mg by mouth once daily.Active predniSONE 5 mg tablet Take 5 mg by mouth once daily.Active COMPOUNDED PRESCRIPTION L-Thyroxine 150 mcg dailyActive fluconazole (DIFLUCAN) 200 mg tablet take one tablet three days prior to procedure 1 tablet ctive nystatin (MYCOSTATIN) 100,000 unit/mL suspension Five days prior to procedure: take one teaspoon by mouth four times daily. 100 mL ctive cholestyramine (QUESTRAN) 4 gram packet Take 1 packet per day 30 Packet ctive cholestyramine (QUESTRAN) 4 gram packet Questran powder once a day 30 Packet Active diphenoxylate-atropine (LOMOTIL) 2.5-0.025 mg per tablet Take 2 tablets by mouth four times daily as needed. 30 tablet Active atorvastatin (LIPITOR) 20 mg tablet Take 20 mg by mouth once daily.Active carbidopa-levodopa orally disintegrating (PARCOPA) 25-100 mg per disintegrating tablet Take 1 tablet by mouth twice daily.Active citalopram (CELEXA) 20 mg tablet Take 20 mg by mouth once daily.Active donepezil HCl (DONEPEZIL ORAL) Take 10 mg by mouth twice daily.Active GABAPENTIN ORAL Take 800 mg by mouth as directed.Active insulin glargine,hum.rec.anlog (LANTUS SOLOSTAR U-100 INSULIN SUBCUTANEOUS) Inject subcutaneously.Active levothyroxine 100 mcg cap Take 150 mcg by mouth once daily.Active memantine (NAMENDA) 10 mg tablet Take 10 mg by mouth twice daily.Active METOPROLOL TARTRATE ORAL Take 25 mg by mouth.Active fish,bora,flax oils-om3,6,9no1 (OMEGA 3-6-9) 1,200 mg cap Take by mouth.Active ropinirole HCl (ROPINIROLE ORAL) Take 8 mg by mouth once daily.Active tiZANidine HCl 4 mg capsule Take 4 mg by mouth twice daily.Active Active Problems No known active problems Immunizations ImmunizationAdministration DatesNext DueCOVID-19 original vaccine, age 12+ yr, monovalent (PFIZER-BIONTNitol Solar - PURPLE TOP)08/05/2020,07/22/2020influenza (HD- IIV3) vaccine, age 65+ yr, high dose, trivalent, PF (FLUZONE HIGH-DOSE) 03/20/2018,03/04/2016tetanus diphtheria (Td) vaccine, adult, unspecified fvadizfkpsi58/29/2001tetanus diphtheria pertussis (Tdap) vaccine, age 7+ yr (ADACEL, BOOSTRIX)05/01/2010,03/31/2010yellow fever (YF) vaccine (YF-VAX) 10/27/1991 Family History Medical HistoryRelationCommentsCancerBrotherProstate-expiredDiabetesBrotherHeart BrotherCHF expiredHeartFatherStrokeFatherDiabetesMotherHeartMotherDiabetesSister RelationStatusCommentsBrotherFatherMotherSister Social History Tobacco UseTypesPacks/DayYears UsedDateSmoking Tobacco: TmbcrjCflfkxpfiy615 Started: 03/15/1988Smokeless Tobacco: FormerAlcohol UseStandard Drinks/Week CommentsYes0 (1 standard drink = 0.6 oz pure alcohol)Seldom use twelve pack of beer over two monthsArea Deprivation IndexAnswerDate RecordedNational Score (1- 100), lower number is lower riskNot on file12/20/2020tate Score (1-10), lower number is lower riskNot on file12/20/2020ata from: https://www.neighborhoodatlas.medicine.[facility].edu/. Last address used for calculationNot on file12/20/2020ex and Gender InformationValueDate RecordedSex Assigned at BirthNot on fileLegal PdpVqih7302/15/2013 9:04 AM EDTGender Identity Not on fileSexual OrientationNot on file Last Filed Vital Signs Vital SignReadingTime TakenCommentsBlood Uqvebyui757/6308 1:57 PM EDT Ipdwu117212/20/2020 1:57 PM VIQTsucrcxcwhl16.5 ??C (97.7 ??F)12/20/2020 1:57 PM EDTRespiratory Smmy2154 1:57 PM EDTOxygen Xchikbanxx68%12/20/2020 1:57 PM EDTInhaled Oxygen Concentration--Wzuczg562.9 kg (249 lb)12/20/2020 1:57 PM QVEKabniw746.7 cm (5' 7.99 )12/20/2020 1:57 PM EDTBody Mass Index37.8712/20/2020 1:57 PM EDT Plan of Treatment Health MaintenanceDue DateLast DoneCommentsAbdominal Aortic Aneurysm Screening 1Anxiety Kbbsxvkgi56/10/1969Depression Vlzwpwkpt97/10/1969Hepatitis C Khxkkuorc54/10/1969Lipid Mlcxxlzlk12/10/1986CT Ubybqrolkzai52/10/1996Cologuard (FIT-DNA)08/27/19959136Fjzxkzewdaj32/10/1996Colorectal Cancer Ngxyfzeoc44/10/1996 Fecal Occult Blood08/27/19950771Bmpihmtvntodq29/10/1996Pneumococcal Vaccine: 50+ (1 of 1 - PCV)2000Shingrix Vaccine (1 of 2)2000DTaP,Tdap,Td Vaccine (3 - Td or Tdap), 03/31/2010, 03/16/2001Diabetes Screening /08/2020, 04/09/2019, 04/08/2019, Additional history existsAdvance Directive Behkvliqtr42/01/2025Covid-19 Vaccine ( - 2024- season)2025 08/05/2020, 07/22/2020Influenza Vaccine (#1)/06/2017, 03/04/2016RSV Vaccine (1 - 1-dose 75+ series)2025 Procedures Procedure NamePriorityDate/TimeAssociated DiagnosisCommentsBASIC METABOLIC PANEL Ycxuuia6112/20/2020 1:57 PM EDT Other acute pulmonary embolism without acute cor pulmonale (HCC) Hypercoagulable state (HCC) from Last 3 Months or Most Recently Relevant to Health Maintenance Results * (ABNORMAL) BASIC METABOLIC PNL (12/20/2020 1:57 PM EDT)ComponentValueRef Range Test MethodAnalysis TimePerformed AtPathologist JxqduibldPhjmyhd486(H)74 - 99 mg/dL12/20/2020 2:20 PM EDTCMansfield Hospital Cancer CareComment: The [place] Diabetes Association (ADA) provides guidance for cutoff [...] Standards of Medical Care in Diabetes 2016, [place] [employer]. Diabetes Care. 2016.39(Suppl 1). VXY893 - 24 mg/dL12/20/2020 2:20 PM [facility] Creatinine1.52(H)0.73 - 1.22 mg/dL12/20/2020 2:20 PM [facility] PwjoVbjklv164758 - 144 mmol/L12/20/2020 2:20 PM [facility]assium4.63.7 - 5.1 mmol/L12/20/2020 2:20 PM EDT [facility] MehnQvhseveh41387 - 105 mmol/L12/20/2020 2:[facility] UycnUD56626 - 30 mmol/L12/20/2020 2:20 PM [facility] HealthcareAnion Gap8(L)9 - 18 mmol/L 12/20/2020 2:20 PM [facility] CareCalcium8.98.5 - 10.2 mg/dL12/20/2020 2:20 PM [facility]- Nmnfxqla0407/04/2021 2:20 PM [facility] eGFR-All Other Races46.12/20/2020 2:20 PM [facility] CareComment: eGFR (Estimated GFR) Units of measure: mL/min/1.73 [...] eGFR may not accurately reflect actual GFR. Specimen (Source)Anatomical Location / LateralityCollection Method / Volume Collection TimeReceived TimeBloodBLOOD SPECIMEN / Gpmjeap4112/20/2020 1:57 PM EDT 12/20/2020 1:59 PM EDT Narrative Authorizing ProviderResult TypeResult StatusGuillermo Parker MDLABORATORY Final ResultPerforming OrganizationAddressCity/State/ZIP CodePhone Number [facility] [address] [place] [address] [facility] [address] [place] [address], [place] from Last 3 Months or Most Recently Relevant to Health [place] [address] Care Teams Team MemberRelationshipSpecialtyStart DateEnd Austen Hansen DO PCP - GeneralFamily Medicine02/15/13
--- OUTSIDE RECORDS SUMMARY | 2025-03-28 13:54 | XMS_ITS | Clinical Summary ---
Author Organization [facility] Address [address] [place] [address] Care Team Providers Care Wire Strander Name Role Phone Janette Molina MD Primary Care Provider [phone] Allergies No known active allergies Medications MedicationSigDispense [...] OF A TABLET BY MOUTH IN THE PMWPMEZ7111/17/2018Active levothyroxine (Synthroid, Levoxyl) 150 mcg tablet levothyroxine [...] results of liver function studies 06/23/2024Excessive daytime /05/2025History of open heart surgery 06/23/2024Insufficient sleep quonmdmo66/05/8001Bzbvlynrohx55/20/2024Encounter for fitting and adjustment of hearing aid01/06/20245358Kcbhukbfnmfltr93/20/2024 Secondary qzznovkbrwjbfnxuaec94/20/2024Sensorineural hearing loss, bilateral 01/06/2024Mild aortic valve zesxsajdaltid12/08/2024 Assessment & Plan (05/26/2023 8:34 AM EST): Monitor with routine echocardiogram Benign essential gspuzpfgrcwb91epression History of colonic gpedeo73Hypothyroid Lumbar idqdrbrjffzoc76Neuralgia and neuritis, unspecified Osteopeniaarkinson's pegfcyk7605/26/2023 05/26/20236256Ivtvczwa89Type 2 diabetes mellitus without upqykypzrlxse11arotid stenosis, Overview (05/26/2023): Last Assessment & Plan: US carotids ([facility]). Cognitive Overview (05/26/2023): Last Assessment & Plan: (Continue current regimen.) Neurogenic pain Overview (05/26/2023): Last Assessment & Plan: (Continue current regimen.) Pt could call for incr to 800 tid if/when desired. Jxkwvhwtzqfliy91 Overview (05/26/2023): --- causing sensory loss R20.0, gait ataxia R26.0, neurogenic pain M79.2. Last Assessment & Plan: (q.v.) Cervical paraspinal muscle spasm Overview (05/26/2023): Last Assessment & Plan: (Continue home PT.) Carcinoma of aqcbbjgt08/05/2023iabetes oceumesf58/05/0474Iqlcrsemx18/05/2023 History of anticoagulant dbbifib0105/23/2022History of malignant neoplasm of buhmcaug63/05/2023Microscopic fjpdagkke72/05/2023Urge incontinence of urine 05/23/2022Urinary vwkdjnm1305/23/20224368Evhdhfnb82/29/2020Rectal frvwbpze80/29/2020 Abnormality of gait and egalevfv45/22/2019 Overview (05/23/2022): This is a 68 year [...] directed by Dr. Ellie Juárez. Iron deficiency osiqnm7304/09/2019Meralgia lzyuqurvfqxn81/22/2019Obstructive sleep apnea iudshvxz55/22/2019CKD (chronic kidney disease)04/08/2019Elevated bilirubin 04/08/20199640Vkkgvlovtoqw93/21/2019Metabolic acidosis, normal anion gap (NAG) 04/08/2019Nausea and xhjyllmj99/21/2019Postoperative fever04/08/2019Sinus /21/3768Xtwrau78/20/2019Addison's plpbnkd0803/30/20191462Zcduwt01/12/2019 Overview (05/23/2022): Prostate cancer / [facility] / Prostatectomy / no chemo or radiation to follow / 2011 Former smoker, stopped smoking in distant past03/30/2019Acid ukazia4803/30/2019HTN (hypertension)03/30/2019 Assessment & Plan (05/26/2023 10:58 AM EST): Hypertension is stable in light of florinef for orthostasis that is currently well controlled and pt without c/o symptoms. Continue all meds Oazxvzaeahmhcs89/12/2019 Assessment & Plan (05/26/2023 10:58 AM EST): Lipid abnormalities are well controlled, continue lipitor Quuohqujf47/12/2019Restless leg zxppnuui60/12/2019Lumbar vssoodoglfu97/12/2019 Tremors of nervous vvyihd6303/30/2019 Overview (05/23/2022): Tremors of hands & legs bilateral but mostly right side / difficult to dx parkinsons due to RLS& patient taking Requip Diverticulosis large intestine w/o perforation or abscess w/o enratwuz07/22/2019 Tubular adenoma of colon01/07/2019Encounter for screening /25/2019 Pulmonary uxbicmbk74/05/2019Acute kidney cshejyl6704/07/2018Major depressive disorder, single episode, ktutclacjgi06/20/2018Atherosclerotic heart disease of [place] coronary artery without angina rehkgccf81/01/2018 Overview (05/23/2022): Triple bypass Assessment & Plan (05/26/2023 10:57 AM EST): Coronary artery disease is Stable Continue GDMT- Asa, lipitor, metoprolol continue risk factor modifications- heart healthy diet, regular exercise as tolerated and continue all medications. Encounters DateTypeDepartmentCare CcqsZzknrgulygu27/14/2025Ref[facility] [address] [place] [address] Cherie Fonseca MA Benign hypertensive heart disease without congestive heart failurefrom Last 3 Months Immunizations ImmunizationAdministration DatesNext DueInfluenza, High Dose Seasonal, Preservative Free03/20/2018,03/04/2016Td (adult), xuoghqbpdkx64/29/2001Tdap 05/01/2010,03/31/2010Yellow Fever10/27/1991 Family History Medical HistoryRelationNameCommentsCoronary artery [...] ValueDate RecordedSex Assigned at BirthNot on fileLegal DsjYiyt0911/14/2021 11:31 PM EDTGender IdentityNot on fileSexual OrientationNot on file Last Filed Vital Signs Vital SignReadingTime TakenCommentsBlood Ztzdepte672/78006/23/2024 10:50 AM EST Sflls250606/23/2024 10:50 AM HAAGhwszvoztsy57.4 ??C (99.4 ??F)06/12/2018 1:52 PM ESTRespiratory Rate--Oxygen Opvfhzdovp65%06/23/2024 10:50 AM ESTInhaled Oxygen Concentration--Osjtgo486 kg (225 lb)06/23/2024 10:50 AM WTCTnjerx978.7 cm (5' 8 )06/23/2024 10:50 AM ESTBody Mass Index34.21006/23/2024 10:50 AM EST Plan of Treatment Health MaintenanceDue DateLast DoneCommentsCT Ddwxbslpqufg22/10/1951Colonoscopy 1Colorectal Cancer Ojdebxmkx08/10/1951iabetes: Hemoglobin A1C 1950FIT-DNA1950FIT1950FOBT1950Medicare Annual Wellness (AWV)08/26/19508338Dxemgszakxhny65/10/1951iabetes: Retinopathy Uwwqftubr23/10/1961 Depression Gdltnunfw26/10/1963Fall Risk Ywspywcby89/10/2016COVID-19 Vaccine ( season)502/04/2025, 04/04/2023, 05/04/2022, Additional history existsInfluenza Vaccine (#1)502/04/2025, 05/19/2023, 03/11/2023, Additional history existsDiabetes: Urine Protein Zjqgeeptb53/14/592764/ Adult Dublaer91/, 05/01/2010, 03/31/2010, Additional history existsZoster FnxdjcwrZsztybaml07/12/2021, 1Pneumococcal Vaccine: 50+ MjktbYhzgjfdfv54/12/2025, 06/25/2021, 03/19/2018, Additional history existsHIB VaccinesAged OutNo [...] DateEnd Date Janette Molina MD [address] [facility] [address] - General05/23/22
--- OUTSIDE RECORDS SUMMARY | 2025-03-28 13:54 | XMS_ITS | Clinical Summary ---
Author Organization [facility] Address [id number] [address] [place] [address] Care Team Providers Care Aluminizer Name Role Phone Janette Molina MD Primary Care Provider [phone] Allergies No known active allergies Medications MedicationSigDispense [...] skin daily.Active Active Problems ProblemNoted DateDiagnosed DateRectal ozczuzxo03/29/1611Mfbtvsrs00/29/2020 Tubular adenoma of colon01/07/2019Diverticulosis large intestine w/o perforation or abscess w/o radvbbgl28/22/2019Encounter for screening rasbtciqext93/25/2019 Family History Medical HistoryRelationNameCommentsArthritisBrotherClotting disorderBrotherColon cancerBrotherDiabetesBrotherHeart diseaseBrotherHyperlipidemiaBrotherProstate cancerBrotherStrokeBrotherDepressionDaughterArthritisFatherArthritisMother DiabetesMotherArthritisSisterBreast cancerSisterClotting disorderSister DepressionSisterDiabetesSisterHeart diseaseSisterKidney diseaseSisterOvarian cancerSisterStomach cancerSisterVision lossSisterNo Known ProblemsSonRelation NameStatusCommentsBrotherDeceasedDaughterAliveFatherDeceasedMotherDeceasedSister DeceasedSonAlive Social History Tobacco UseTypesPacks/DayYears UsedDateSmoking Tobacco: FormerCigarettes0.56 Smokeless Tobacco: FormerChewAlcohol UseStandard Drinks/WeekCommentsNot Currently0 (1 standard drink = 0.6 oz pure alcohol)ChildcareAnswerDate Recorded LigrmougqCvyxopy52/12/2019EmploymentAnswerDate RecordedEmploymentUnknown 10/28/2018Purpose - LifeAnswerDate RecordedPurpose and direction in lifeUnknown 1Sex and Gender InformationValueDate RecordedSex Assigned at BirthNot on fileLegal IpnBlsc4212/22/2014 11:28 AM EDTGender IdentityNot on fileSexual OrientationNot on file Last Filed Vital Signs Vital SignReadingTime TakenCommentsBlood Whuetkvx346/7003/16/2020 2:42 PM EDT Jcxqh1086/03/2020 11:10 AM SCGFoyyetearet87.2 ??C (97.1 ??F)03/16/2020 2:42 PM EDTRespiratory Cpoi745001/20/2020 10:10 AM EDTOxygen Alowaajiws33%01/20/2020 11:30 AM EDTInhaled Oxygen Concentration--Gbjtta305.2 kg (249 lb 9.6 oz)03/16/2020 2:42 PM OPLUemhcl236.7 cm (5' 8 )03/16/2020 2:42 PM EDTBody Mass Index37.95 03/16/2020 2:42 PM EDT Plan of Treatment Health MaintenanceDue DateLast DoneCommentsDepression Dhelpdggw95/10/1963Tobacco Dimeinrcv01/10/1963Adult BMI Wsuujenea60/10/1969Zoster (Shingles) Vaccine (1 of 2)2000Abdominal Aortic Aneurysm (AAA) Zfeset6808/27/2015Fall Risk Screening 08/27/2015DTaP,Tdap and Td Vaccines (3 - Td or Tdap), 03/31/2010, 03/16/20016513Tgupalyjjto56, 10/24/2008Influenza Mfxwvnl15, 03/04/2016RSV ( or age 60+ yrs) (1 - 1-dose 75+ series)2025 Medical Devices ImplantedTypeAreaManufacturerDevice IdentifierShelf Expiration DateModel / Serial / LotLens Iol Ultrasert 19.5d - [id number] - [id number] Implanted:Qty: 1 on 01/20/2020 by Jasmyne Chacon MD at [facility]: [id number] 19.5 / [id number] / Procedures Procedure NamePriorityDate/TimeAssociated DiagnosisCommentsCOLONOSCOPYRoutine 10/24/2008from Last 3 Months or Most Recently Relevant to Health Maintenance Results * Colonoscopy (10/24/2008) Narrative Authorizing ProviderResult TypeResult StatusNot In System Ref ProvGI PROCEDURE ORDERABLESFinal ResultPerforming OrganizationAddressCity/State/ZIP CodePhone Number [facility] [address] [place] [address] from Last 3 Months or Most Recently Relevant to Health [place] [address] Care Teams Team MemberRelationshipSpecialtyStart DateEnd Date Janette Molina MD [facility] [place] [address] PCP - GeneralFamily Medicine11/18/18
--- OUTSIDE RECORDS SUMMARY | 2025-03-28 13:54 | XMS_ITS | Clinical Summary ---
Author Organization [facility] Address [address] [place] [address] Care Team Providers Care Rn Icu Name Role Phone Janette Molina MD Primary Care Provider [phone] Allergies No known active allergies Medications MedicationSigDispense [...] incr to 800 tid if/when desired. Parkinson akhkpju4812/16/2022 Assessment & Plan (03/08/2025 6:06 PM EDT): (No clear need for med.) Assessment & Plan (12/23/2023 10:52 AM EDT): (No clear need for med.) Assessment & Plan (06/24/2023 10:20 AM EST): Stop med for now ad experimentum. If needs to restart, bid (before breakfast & before lunch). Assessment & Plan (12/17/2022 10:07 AM EDT): (Continue current regimen.) Cognitive hbkectc3212/16/2022 Assessment & Plan (03/08/2025 6:06 PM EDT): [...] & Plan (12/17/2022 10:12 AM EDT): (q.v.) Otylfcbpiechrx28/31/2023 Overview (12/16/2022): --- causing sensory loss R20.0, gait ataxia R26.0, neurogenic pain M79.2. Assessment & Plan (12/17/2022 10:12 AM EDT): (q.v.) PLMD (periodic limb movement disorder)12/16/2022 Assessment & Plan (12/17/2022 10:12 AM EDT): (q.v.) Muscle igoixj7612/16/2022 Assessment & Plan (12/17/2022 10:12 AM EDT): Could add Mg if problem recurs. Carotid stenosis, /31/2023 Assessment & Plan (03/08/2025 6:06 PM EDT): [...] (2011) but certainly get recent PSG (both, [place]). Long discussion re need to restart tx. Pt needs new supplies. OK to use old machine. Download in 1 mo, 3 mo, 6 mo, 11 mo. Assessment & Plan (12/23/2023 10:52 AM EDT): (Per PCP.) Assessment & Plan (06/24/2023 10:23 AM EST): (Per PCP.) Assessment & Plan (12/17/2022 10:12 AM EDT): (Per PCP.) Encounters DateTypeDepartmentCare FkdlFmomoidjtzc96/20/2025Telephone [facility] [address] [place] [address] Tomeka Hernandez MA 02/10/2025Telephone [facility] [address] [place] [address] Tomeka Hernandez MA 01/25/2025Telephone [facility] [address] [place] [address] Sera Reeves MA from Last 3 Months Immunizations ImmunizationAdministration DatesNext DueABRYSVO - Respiratory syncytial virus (RSV), vaccine, bivalent, protein subunit RSV prefusion F, diluent reconstituted, 0.5 mL, PF04/04/2023Influenza, High Dose Seasonal, Preservative Free03/20/2018,03/04/2016Influenza, Seasonal, Quadrivalent, Rckkxljgco37/13/2023 ,06/25/2021Influenza, Zkebvpgbhtd54/01/2024,03/11/2023,02/17/2020Influenza, trivalent, sjkgpzskuw12/26/2019Pfizer Purple Cap SARS-CoV-2 Vaccination 08/05/2020,07/22/2020,07/15/2020neumococcal Polysaccharide WMOA7355/11/2021Td (adult), /29/2183Nbiz37/13/2023,05/01/2010,03/31/2010Yellow Fever 10/27/1991Zoster, Xavwrvtbclt66/12/2021,09/06/2020 Family History Medical HistoryRelationNameCommentsDiabetesFatherHeart diseaseFatherHypertension FatherDiabetesMotherHeart diseaseMotherHypertensionMotherRelationNameStatus CommentsBrotherx 5DeceasedDaughter 1DeceasedDaughter 2AliveFatherDeceasedMother DeceasedSisterx 3 dec, 1 aliveSonx 1Alive Social History Tobacco UseTypesPacks/DayYears UsedDateSmoking Tobacco: FormerCigarettes Smokeless Tobacco: Never Tobacco Cessation:Counseling Given: Not Answered Comments:>10 years since last smoked Alcohol UseStandard Drinks/WeekCommentsYes0 (1 standard drink = 0.6 oz pure alcohol)caffeine: coffeeSex and Gender InformationValueDate RecordedSex Assigned at BirthNot on fileLegal PgwNxyi9007/31/2022 6:34 PM EDTGender IdentityNot on file Sexual OrientationNot on file Last Filed Vital Signs Vital SignReadingTime TakenCommentsBlood Brpmqgrk916/7108 10:51 AM EDT Znkst136512/21/2024 10:51 AM EDTTemperature--Respiratory Ebuo4037 9:48 AM EDTOxygen Vorljxlyfs57%11/29/2024 9:48 AM EDTInhaled Oxygen Concentration-- Kwskoe986 kg (223 lb)12/21/2024 10:51 AM BCPJfbfpn777.6 cm (5' 6 )12/21/2024 10:51 AM EDTBody Mass Index35.9908 10:51 AM EDT Plan of Treatment DateTypeDepartmentCare Team (Latest Contact Info)Lzujuhjyfkl82/12/2026 10:00 AM ESTOffice Visit [facility] [facility] [address] [place] [phone] Tyler Estrada MD [address] [place] [address] 12/20/2025 10:30 AM EDTOffice Visit [facility] [address] [place] [address] Nic Arvizu MD [address] [facility] [address] [place], [place] [id number] Health MaintenanceDue DateLast DoneCommentsCT Ybwevmijrmww33/10/1951Colonoscopy 1950olorectal Cancer Ocisbjfem50/10/1951FIT-DNA1950FIT1950 FOBT08/26/19501751Oycsnkwjqfbfn65/10/1951OVID-19 Vaccine (2024- season) 5006/30/2024, 04/04/2023, 04/09/2021, Additional history exists Pneumococcal Vaccine: 65+ OqdqpRdibheaes23/12/2025, 06/25/2021, 03/19/2018, Additional history existsInfluenza JxbdpxnTldfzqqsl37/31/2025, 06/30/2024, 05/19/2023, Additional history exists Insurance Care Teams Team MemberRelationshipSpecialtyStart [place] [address] [place] [phone] PCP - GeneralFamily Medicine09/08/24
--- OUTSIDE RECORDS SUMMARY | 2025-03-28 13:55 | XMS_ITS | Clinical Summary ---
Author Organization [facility] Address [address], [address] [place] [address] Care Team Providers Care Graphics Artist Name Role Phone Janette Molina MD Primary Care Provider [phone] Allergies No known active allergies Medications MedicationSigDispense QuantityRefillsLast FilledStart DateEnd DateStatus citalopram (CELEXA) 20 MG tablet Take 20 mg by mouth dailyActive hydrocortisone (CORTEF) 20 MG tablet Take 20 mg by mouth 2 times daily11/17/2018Active insulin aspart (NOVOLOG) 100 UNIT/ML injection vial Indications:sliding scaleInject into the skin Indications: sliding scaleActive insulin glargine (BASAGLAR KWIKPEN) 100 UNIT/ML injection pen 20 Units nightlyActive lisinopril (PRINIVIL;ZESTRIL) 10 MG tablet Take 10 mg by mouth dailyActive levothyroxine (SYNTHROID) 150 MCG tablet Take 150 mcg by mouth DailyActive fludrocortisone (FLORINEF) 0.1 MG tablet Take 0.1 mg by mouth dailyActive Multiple Vitamins-Minerals (THERAPEUTIC MULTIVITAMIN-MINERALS) tablet Take 1 tablet by mouth dailyActive Coenzyme Q10 (COQ-10) 100 MG CAPS Take by mouth every eveningActive Hundred-3 Fatty Acids (FISH OIL) 600 MG CAPS Take by mouth dailyActive rOPINIRole (REQUIP) 0.5 MG tablet Take 8 mg by mouth every eveningActive CPAP Machine MISC by Does not apply routeActive warfarin (COUMADIN) 7.5 MG tablet Indications:M-W-FTake 7.5 mg by mouth daily Indications: M-W-FActive warfarin (COUMADIN) 4 MG tablet Indications:G-MC-Ydp-SunTake 5 mg by mouth daily Indications: S-LI-Uwn-SunActive metoprolol tartrate (LOPRESSOR) 25 MG tablet Take 75 mg by mouth 2 times dailyActive simvastatin (ZOCOR) 20 MG tablet Take 20 mg by mouth nightlyActive Liraglutide (VICTOZA SC) Inject 1.2 mg into the skin dailyActive Active Problems ProblemNoted DateDiagnosed DateIron deficiency delekz2904/09/2019Meralgia xwgmojnzhdba14/22/2019Obstructive sleep apnea tjpuilxs04/22/2019Abnormality of gait and mobility due to Impaired Mobility and ADL's due to Severe Lumbar Spinal Stenosis. [facility] admit 04/09/19.04/09/2019 Overview (04/09/2019): This is a 68 year old male [...] RN/mdl as directed by Dr. Ellie Juárez. CKD (chronic kidney disease)04/08/20199549Ccsmkjdpampt19/21/2019Sinus tachycardia 04/08/2019Metabolic acidosis, normal anion gap (NAG)04/08/2019Nausea and entswoxv50/21/2019Postoperative fever04/08/2019Elevated dsgeaujar74/21/2019Type 2 diabetes mellitus with hyperglycemia, with long-term current use of insulin 04/08/20192500Nxqzkh59/20/2019Spinal stenosis of lumbar region with radiculopathy 03/30/2019Lumbar lskzfcgihcm68/12/2019Addison's xynsvgj2803/30/2019Cancer 03/30/2019 Overview (03/30/2019): Prostate cancer / [facility] / Prostatectomy / no chemo or radiation to / 2011 Restless leg /12/2019Former smoker, stopped smoking in distant past 03/30/2019Tremors of nervous pnvxgg1103/30/2019 Overview (03/30/2019): Tremors of hands & legs bilateral but mostly right side / difficult to dx parkinsons due to RLS& patient taking Requip Thyroid gxfqnsv3303/30/2019HTN (hypertension)03/30/20199090Wmfsxfectgblgv74/12/2019 Acid hvqtuh3203/30/20199305Gkyejqqxv23/12/2019Diverticulosis large intestine w/o perforation or abscess w/o /22/2019Coronary ribvauvjadcxixpa71/07/2019 Acute kidney syofzme4804/07/2018Major depressive disorder, single episode, jswvpyaxdhu92/20/2018CAD (coronary artery disease)03/19/2018 Overview (04/09/2019): Triple bypass Resolved Problems ProblemNoted DateDiagnosed DateResolved ShwwJxxmyfiizs62 Pulmonary zaytwepx04 Overview (03/30/2019): 2018 / has been on Coumadin since / Family History Medical HistoryRelationNameCommentsCancerBrotherx 4prostate cancerDiabetes Brotherx 4Heart FailureBrotherx 4OtherBrotherx 4agent orangeNo Known Problems Daughter 1x 1OtherDaughter 2x 1MVA at age 5 / 1993ArthritisFatherCoronary Art DisFatherHeart DiseaseFatherStrokeFatherDiabetesMotherHeart DiseaseMotherHigh Blood PressureMotherOtherSister 1x 1age 89DiabetesSister 2x 4Heart AttackSister 2x 4ObesitySister 2x 4OtherSister 2x 4MRSA infectionNo Known ProblemsSonx 1 RelationNameStatusCommentsBrotherx 4DeceasedDaughter 1x 1AliveDaughter 2x 1 DeceasedFatherDeceasedMotherDeceasedSister 1x 1AliveSister 2x 4AliveSonx 1Alive Social History Tobacco UseTypesPacks/DayYears UsedDateSmoking Tobacco: FormerCigarettes1.510 03/30/1981 - 03/30/1991Smokeless Tobacco: FormerChewAlcohol UseStandard Drinks/WeekCommentsYes0 (1 standard drink = 0.6 oz pure alcohol)socialSocial Connection and Isolation PanelAnswerDate RecordedFrequency of Communication with Friends and FamilyMore than three times a week04/09/2019Frequency of Social Gatherings with Friends and FamilyTwice a week04/09/2019Attends Islam Services1 to 4 times per year04/09/2019Active Member of Clubs or OrganizationsNo 04/09/2019Attends Club or Organization TbdpptejGmsdh81/22/2019Marital Status Oxiegkk8004/09/2019Overall Financial Resource Strain (CARDIA)AnswerDate Recorded Difficulty of Paying Living ExpensesSomewhat hard04/09/2019[facility] [place] [facility] - Occupational Stress QuestionnaireAnswerDate Recorded Feeling of StressTo some rwgvdt9004/09/2019Exercise Vital SignAnswerDate Recorded Days of Exercise per Week0 days04/09/2019Minutes of Exercise per Session0 min 04/09/2019Hunger Vital SignAnswerDate RecordedWorried About Running Out of Food in the Last YearNever true04/09/2019Ran Out of Food in the Last YearNever true 04/09/2019PRAPARE - TransportationAnswerDate RecordedLack of Transportation (Medical)No04/09/2019Lack of Transportation (Non-Medical)No04/09/2019Sex and Gender InformationValueDate RecordedSex Assigned at BirthNot on fileLegal Sex Male06/28/2012 8:45 PM ESTGender IdentityNot on fileSexual OrientationNot on fileOccupationIndustryJob Start DateJob End Dateretired factory workNot on file Not on fileNot on file Last Filed Vital Signs Vital SignReadingTime TakenCommentsBlood Redhncuk713/8904/13/2019 6:55 AM EST Ffvhb264004/13/2019 6:55 AM PHUMpuidtqyqhh13.2 ??C (97.1 ??F)07/14/2020 2:59 PM ESTRespiratory Anad705306/13/2018 6:55 AM ESTOxygen Ciptzqqteu20%04/13/2019 6:55 AM ESTInhaled Oxygen Concentration--Mbivve025.4 kg (250 lb)07/14/2020 2:59 PM JJDHxrayt295.6 cm (5' 6 )07/14/2020 2:59 PM ESTBody Mass Index40.35007/14/2020 2:59 PM EST Plan of Treatment Not on file Insurance Advance Directives TypeDate RecordedPatient RepresentativeExplanationACP-Advance Directive 04/14/2019 1:30 PM * Full Code (Latest Code Status on File) Date ActivatedDate BufjrmifqcdVhhhlecu63/22/2019 5:50 PM04/13/2019 2:15 PM * Full Code Date ActivatedDate XvvflramosqQbdrnxip59/21/2019 1:06 AM04/09/2019 4:44 PM Care Teams Team MemberRelationshipSpecialtyStart DateEnd Date Janette Molina MD [facility]
--- NOTE | 2025-03-28 13:59 | CA_ITS ---
Patient Name: DON ELKINS MR#: [id number] : 1950 Exam Date: 03/28/2025 Ordering Doctor: DR SAL SABILLON M.D. ECHOCARDIOGRAM REPORT PROCEDURE: CA ECHO DOPPLER COMPLETE INDICATIONS: Heart murmur COMPARISON: None. DESCRIPTION: COMPLETE ECHOCARDIOGRAM Real-time transthoracic echocardiography with 2D, M-mode, spectral and color flow Doppler performed. QUALITY: Technical quality was good. LEFT VENTRICLE: Normal chamber size. Sigmoid septum. LV EF: Global left ventricular systolic function is normal. Calculated left ventricular ejection fraction is 61%. No significant wall motion abnormalities. DIASTOLIC: Normal diastolic function. ATRIAL SEPTUM: Inadequately seen. LEFT ATRIUM: Normal chamber size. RIGHT ATRIUM: Mild dilatation. RIGHT VENTRICLE: Normal chamber size. Normal right ventricular systolic function. TRICUSPID VALVE: Normal mobility and thickness. No stenosis with trivial regurgitation. No evidence of pulmonary hypertension. RVSP is 18mmHg. MITRAL VALVE: Normal mobility and thickness. No evidence of mitral valve stenosis. Mild mitral annular calcification. Trivial mitral regurgitation. AORTIC VALVE: Normal trileaflet appearance. No visible sclerosis. Normal leaflet mobility. No evidence of aortic valve stenosis. Mild aortic regurgitation. AORTIC ROOT: Normal diameter and appearance. The aortic root measures 3.4cm. The ascending aorta is mildly dilated measuring 3.7cm. PULMONIC VALVE: Normal thickness and mobility. No stenosis. Trivial regurgitation. PERICARDIUM: There is a small pericardial effusion posterior to the right atrium. IVC: Collapses with inspiration. The IVC is normal in size measuring 1.9cm. CONCLUSION: Global left ventricular systolic function is normal; visually estimated ejection fraction is 55 to 60% Normal right ventricular size and systolic function Normal diastolic function The right atrium is mildly dilated Mild aortic valve regurgitation The ascending aorta is mildly dilated Small pericardial effusion posterior to the right atrium Adult Echocardiography Procedure Report Left Ventricle LVEDD (3.7 - 5.6 cm): 4.03 cm LVESD (2.2 - 4.0 cm): 2.72 cm LVIVS thickness (0.6 - 1.2 cm): 1.19 cm LVPW thickness (0.5 - 1.0 cm): 0.87 cm e': 0.09 m/s E - e': 7.10 LVOT Max Gradient: 3.08 mm[Hg] LVOT Area (cm2): 0.88 m/s Peak Velocity (LVOT): 0.88 m/s Mean Velocity (LVOT): 0.61 m/s LVOT Diameter 2.24 cm Left Ventricular Ejection Fraction: 61.25 % Left Atrium LA Volume Index (2D A2C): 24.12 ml/m2 Left Atrium Systolic Dimension: 4.58 cm Mitral Valve MV E to A Ratio: 0.71 MV Max Gradient: MV Mean Gradient: Mitral Valve A-Wave Peak Velocity: 0.87 m/s Mitral Valve E-Wave Peak Velocity: 0.62 m/s Cardiovascular Orifice Area: Right Ventricle RV Internal Diastolic Dimension: 2.82 cm Aorta AO Root Diam: 3.39 cm Ascending Ao Diam: 3.69 cm Aortic Valve AoV Area (Peak Jeremiah): 3.54 cm2, 3.54 cm2 AoV Area (VTI): 3.63 cm2, 3.63 cm2 Deceleration Harlan: 1.03 m/s2 Pressure Half-Time: 913.70 ms Peak Velocity(Antegrade Flow): 0.97 m/s Peak Gradient(Antegrade Flow): 3.79 mm[Hg] Mean Velocity(Antegrade Flow): 0.69 m/s Mean Gradient(Antegrade Flow): 2.08 mm[Hg] Velocity Time Integral: 21.17 cm Tricuspid Valve Peak Velocity (Regurgitant Flow): 1.68 m/s, 1.96 m/s Peak Velocity: Pulmonic Valve Mean Gradient: 2.12 mm[Hg], 2.34 mm[Hg] Mean Velocity: 0.68 m/s, 0.69 m/s Peak Velocity: 1.06 m/s Peak Gradient: 3.98 mm[Hg], 5.01 mm[Hg] Right Atrium Right Atrium Systolic Pressure: 38.37 ml, 38.37 ml Dictated by: Damaris Meier M.D. on 03/28/2025 at 17:48 Approved by: Damaris Meier M.D. on 03/28/2025 at 17:52
== END 2025-03-28 13:53 | disposition home or self-care (01) ==
LOC: CARD 13:52
PROVIDERS: PCP Family Medicine; Visit Provider Family Medicine
DX: R01.1 Cardiac murmur, unspecified (principal)
CPT/HCPCS: 93306